=== PATIENT | male | born 1980 | race Caucasian/White ===

== ENCOUNTER → 2023-06-02 10:02 | Outpatient (CLI) | payer OTHER, SELFPAY ==
--- NOTE | ~2023-06-02 | XR_ITS ---
XR lumbar spine 2-3V 06/02/2023 10:34 Indication: Mid low back pain for 8 months Procedure: 3 views lumbar spine Comparison: No prior studies for comparison. Findings: Vertebral body heights are maintained. Normal lumbar lordosis. No fracture or traumatic mal alignment. No evidence for spondylolisthesis. Pedicles intact. Sacral foramen are symmetric. Impression: 1: No significant abnormality of the lumbar spine. Reviewed, dictated and finalized at location L. CENTER OPERATIONS MANAGER Impression: 1: No significant abnormality of the lumbar spine.
== END ==
PROVIDERS: PCP Emergency Medicine; Visit Provider Emergency Medicine
DX: M54.50 Low back pain, unspecified (principal)
CPT/HCPCS: 72100

== ENCOUNTER 2023-06-18 11:41 | Outpatient (CLI) | payer OTHER, SELFPAY ==
[2023-06-18 12:05] LABS: Basophils Absolute Auto 0.1 K/mm3 (0.0-0.1); Basophils Percent Auto 0.5 % (0.2-1.2); Eosinophils Absolute Auto 0.2 K/mm3 (0-0.3); Eosinophils Percent Auto 2.3 % (0-4.4); Hematocrit 37.3 % (42.0-52.0); Hemoglobin 11.9 g/dL (14.0-18.0); Immature Granulocyte Absolute 0.03 K/mm3 (0.00-0.031); Immature Granulocyte Percent A 0.3 % (0-0.5); Lymphocytes Percent Auto 25.1 % (18.3-44.2); Mean Corpuscular HGB Conc 31.9 g/dl (32-36); Mean Corpuscular Hemoglobin 26.6 pg (26-34); Mean Corpuscular Volume 83.3 fl (80-100); Mean Platelet Volume 9.6 fl (7.4-10.4); Monocytes Absolute Auto 0.6 K/mm3 (0.1-0.6); Monocytes Percent Auto 6.5 % (2.6-8.5); Neutrophils Percent Auto 65.3 % (45.5-73.1); Platelet Count Result 225 k/mm3 (150-375); Red Blood Count 4.48 M/mm3 (4.6-6.20); Red Cell Distribution Width 14.4 % (11.5-14.5); White Blood Count 9.2 K/mm3 (4.5-10.0)
[2023-06-18 13:37] LABS: Iron 39 ug/dL (49-181)
[2023-06-18 13:44] LABS: Alanine Aminotransferase 13 U/L (6-50); Albumin Level 3.8 g/dL (3.5-5.1); Alkaline Phosphatase 90 U/L (38-126); Anion Gap 10 mmol/L (8-16); Aspartate Amino Transferase 17 U/L (17-59); Bilirubin,Total 0.3 mg/dL (0.2-1.3); Blood Urea Nitrogen 20 mg/dL (9-20); Calcium 8.9 mg/dL (8.4-10.2); Carbon Dioxide 25 mmol/L (22-30); Chloride 104 mmol/L (98-107); Estimated Glomerular Filt Rate > 60; Glucose 129 mg/dL (65-110); Lactate Dehydrogenase 164 U/L (120-246); Potassium 4.2 mmol/L (3.4-5.0); Sodium 139 mmol/L (137-145)
[2023-06-18 13:52] LABS: Percent Iron Saturation 11 % (20-50)
[2023-06-18 14:47] LABS: Folic Acid 3.8 ng/mL (2.76->20)
[2023-06-21 22:56] LABS: Methylmalonic Acid 236 nmol/L (87-318)
[2023-07-01 09:29] LABS: Soluble Transferrin Receptor 1.16 mg/L (0.76-1.76)
== END 2023-06-18 11:42 | disposition home or self-care (01) ==
PROVIDERS: Nurse Practitioner Family; PCP Emergency Medicine; Visit Provider Internal Medicine Hematology & Oncology
DX: D50.8 Other iron deficiency anemias (principal)
CPT/HCPCS: 36415; 80053; 82607; 82728; 82746; 83540; 83550; 83615; 83921; 84238; 85025

== ENCOUNTER → 2023-06-30 10:51 | Outpatient (CLI) | payer OTHER, SELFPAY ==
--- NOTE | ~2023-06-30 | XR_ITS ---
Clinical Indication: Cough PA and lateral views of the chest: Comparison: None Findings: The lungs are clear, without evidence of focal consolidation or pleural effusion. Cardiome diastinal silhouette is within normal limits. Bones and soft tissues are unremarkable. Impression: Normal chest. Reviewed, dictated and finalized at [facility]. 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
== END ==
PROVIDERS: PCP Emergency Medicine; Visit Provider Emergency Medicine
DX: R05.9 Cough, unspecified (principal)
CPT/HCPCS: 71046

== ENCOUNTER 2024-01-07 15:12 | Outpatient (CLI) | payer OTHER, SELFPAY ==
[2024-01-07 15:42] LABS: Basophils Percent Auto 0.4 % (0.2-1.2); Eosinophils Absolute Auto 0.1 K/mm3 (0-0.3); Eosinophils Percent Auto 1.2 % (0-4.4); Hematocrit 32.9 % (42.0-52.0); Hemoglobin 10.9 g/dL (14.0-18.0); Immature Granulocyte Absolute 0.03 K/mm3 (0.00-0.031); Immature Granulocyte Percent A 0.3 % (0-0.5); Lymphocytes Absolute Auto 2.09 K/mm3 (0.9-3.2); Lymphocytes Percent Auto 20.1 % (18.3-44.2); Mean Corpuscular HGB Conc 33.1 g/dl (32-36); Mean Corpuscular Hemoglobin 29.2 pg (26-34); Mean Corpuscular Volume 88.2 fl (80-100); Monocytes Absolute Auto 0.7 K/mm3 (0.1-0.6); Monocytes Percent Auto 6.9 % (2.6-8.5); Neutrophils Absolute Auto 7.4 K/mm3 (1.3-6.7); Neutrophils Percent Auto 71.1 % (45.5-73.1); Platelet Count Result 159 k/mm3 (150-375); Red Blood Count 3.73 M/mm3 (4.6-6.20); Red Cell Distribution Width 13.2 % (11.5-14.5); White Blood Count 10.4 K/mm3 (4.5-10.0)
[2024-01-07 16:33] LABS: Iron 39 ug/dL (49-181)
[2024-01-07 16:38] LABS: Anion Gap 9 mmol/L (4-12); Blood Urea Nitrogen 20 mg/dL (9-20); Calcium 8.8 mg/dL (8.4-10.2); Carbon Dioxide 29 mmol/L (22-30); Chloride 100 mmol/L (98-107); Estimated Glomerular Filt Rate > 60; Glucose 178 mg/dL (65-110); Potassium 4.7 mmol/L (3.4-5.0); Sodium 138 mmol/L (137-145)
[2024-01-07 16:43] LABS: Percent Iron Saturation 12 % (20-50)
[2024-01-07 17:38] LABS: Folic Acid 10.2 ng/mL (2.76->20)
== END 2024-01-07 15:13 | disposition home or self-care (01) ==
LOC: ANHLAB 15:14
PROVIDERS: Nurse Practitioner Family; Visit Provider Internal Medicine Hematology & Oncology
DX: D50.9 Iron deficiency anemia, unspecified (principal)
CPT/HCPCS: 36415; 80048; 82607; 82728; 82746; 83540; 83550; 85025

== ENCOUNTER 2024-05-31 10:35 | Emergency (ER) | payer OTHER, SELFPAY ==
[2024-05-31 10:37] VITALS: BP 168/82; PULSE 87; RESP 18; TEMP 37; O2SAT 97
--- NOTE | 2024-05-31 11:11 | ED_ITS ---
HPI - Recheck/Abnormal Lab/Rx General Chief Complaint: Recheck/Abnormal Lab/Rx Stated Complaint: PICC Problems Time Seen by Provider: 05/31/24 10:40 History of Present Illness HPI narrative: 44-year-old male presenting to the emergency department from a local facility for evaluation of a PICC line that was clogged. Patient has a PICC line for long-term IV antibiotics for care of his left lower extremity heel ulcer and wound. He has a wound VAC in place. No injuries or complications. Patient states he is otherwise in his normal state of health at the facility. They tried using it this morning and knows that was slightly clogged incentive in for evaluation. Denies any arm pain, no nausea vomiting, headache, vision changes. No chest pain shortness a breath. States he feels at his baseline. Related Data Home Medications ?Medication ?Instructions ?Recorded ?Confirmed ?Last Taken ?Type atorvastatin 20 mg tablet 20 mg PO DAILY 06/29/23 02/25/24 Unknown History calcium carbonate (Oyster Shell 500 mg PO DAILY 06/29/23 02/25/24 Unknown History Calcium 500) dulaglutide 1.5 mg/0.5 mL 1.5 mg subcut WEEKLY 06/29/23 02/25/24 Unknown History subcutaneous pen injector (Trulicity) ergocalciferol (vitamin D2) 1,250 50,000 unit PO WEEKLY 06/29/23 02/25/24 Unknown History mcg (50,000 unit) capsule ferrous sulfate 325 mg (65 mg 325 mg PO DAILY 06/29/23 02/25/24 Unknown History iron) tablet insulin glargine 100 unit/mL (3 20 unit subcut HS 06/29/23 02/25/24 Unknown History mL) subcutaneous pen (Lantus Solostar U-100 Insulin) insulin lispro 100 unit/mL 10 unit subcut TIDWMEAL 06/29/23 02/25/24 Unknown History subcutaneous pen metformin 1,000 mg tablet 500 mg PO BID 06/29/23 02/25/24 Unknown History pantoprazole 40 mg tablet,delayed 40 mg PO DAILY 06/29/23 02/25/24 Unknown History release losartan 75 mg PO DAILY 07/21/23 02/25/24 Unknown History cephalexin 500 mg capsule 500 mg PO TID 02/25/24 02/25/24 Unknown History Allergies Allergy/AdvReac Type Severity Reaction Status Date / Time No Known Allergies Allergy Verified 02/03/24 13:09 Review of Systems Review of Systems: As reviewed above in [facility] Social History Social History Smoking status: Never smoker Second hand tobacco smoke exposure: Yes Living arrangements: with family Spiritual care concerns: No Exam Narrative: GENERAL: Obese but not any acute distress HEAD: [Normocephalic, atraumatic.] EYES: [PERRLA and EOMI.] ENT: Nares clear, no rhinorrhea or epistaxis. Mucous membranes moist. NECK: Supple. CHEST: [Clear to auscultation. No respiratory distress.] HEART: [Regular rate and rhythm]. No murmur heard. [Normal peripheral pulses.] ABDOMEN: [Soft, nondistended], [nontender], [No rigidity or guarding] EXTREMITIES: Left lower extremity wound VAC in place, operating. Right upper extremity single lumen PICC line without any overlying skin changes, appears clean at the insertion site, no swelling or deformity. Full strength and sensation throughout both arms. No swelling in the arms. SKIN: Warm, dry, no rash. NEURO: [No focal deficits]. Alert and oriented [x3.] PSYCH: [Normal mood and affect.] Course Vital Signs Vital signs: Vital Signs Temperature 37.0 C 05/31/24 10:37 Pulse Rate 87 05/31/24 10:37 Respiratory Rate 18 05/31/24 10:37 Blood Pressure 168/82 H 05/31/24 10:37 Pulse Oximetry 97 05/31/24 10:37 Temperature 37.0 C 05/31/24 10:37 Pulse Rate 87 05/31/24 10:37 Respiratory Rate 18 05/31/24 10:37 Blood Pressure 168/82 H 05/31/24 10:37 Pulse Oximetry 97 05/31/24 10:37 MDM - Recheck/Abnormal Lab/Rx MDM Narrative Medical decision making narrative: 44-year-old male presenting for PICC line not functioning at his nursing facility. He has PICC line for long-term antibiotics for his left heel ulcer which is under wound VAC at this time. Patient has no complaints, is afebrile, appears well, no swelling in the extremity. PICC line appears in place without any overlying skin changes, no swelling or skin discoloration. PICC line was flushed in the emergency department easily without any difficulty. PICC line seems to be potentially positional in nature but we ran through multiple flushes without any difficulty with separate providers able to flush it without complication. Patient is stable for discharge back to his facility this time given no complications. Will exchange dressing prior to discharge to his acility. Medical Records Attestation: I reviewed the patient's medical records. Discharge Plan Discharge Clinical Impression: Occluded PICC line Patient Disposition: [facility] Condition: Stable Instructions: Antibiotic Form Additional Instructions: Your PICC line flushes very easily, likely positional in nature which was why they were having difficulty at your facility. No swelling or signs of infection. Follow-up with your regular doctor outpatient or return with any new or worsening concerns. Patient Language: Bulgarian Prescriptions: No Action losartan 75 mg 75 mg PO DAILY cephalexin 500 mg capsule 500 mg PO TID atorvastatin 20 mg tablet 20 mg PO DAILY calcium carbonate [Oyster Shell Calcium 500] 500 mg calcium (1,250 mg) tablet 500 mg PO DAILY pantoprazole 40 mg tablet,delayed release (DR/EC) 40 mg PO DAILY ferrous sulfate 325 mg (65 mg iron) tablet 325 mg PO DAILY metformin 1,000 mg tablet 500 mg PO BID ergocalciferol (vitamin D2) 1,250 mcg (50,000 unit) capsule 50,000 unit PO WEEKLY Rx Instructions: TAKES ON MONDAYS insulin lispro 100 unit/mL insulin pen 10 unit SUBCUT TIDWMEAL insulin glargine [Lantus Solostar U-100 Insulin] 100 unit/mL (3 mL) insulin pen 20 unit SUBCUT HS Trulicity 1.5 mg/0.5 mL pen injector 1.5 mg SUBCUT WEEKLY Rx Instructions: TAKES ON MONDAYS Follow-up/Referrals: Shahram Olmstead MD [Primary Care Provider] - Time of Disposition: 11:15
--- OUTSIDE RECORDS SUMMARY | 2024-06-07 23:59 | XMS_ITS | Clinical Summary ---
Author Organization [facility] Address [address] [place] [address] Care Team Providers Care Fitness Manager Name Role Phone Nguyễn Bingham MD Primary Care Provider [phone] Source Comments [facility] [employer] ([place]),non-owned Affiliates and Associated Physician Practices is amultiple site organization consisting of ambulatory clinics and hospital sitesin [place], [place], [place] and [place]. This disclosure is being madepursuant to the Care Everywhere program and may not contain all information available regarding this patient. Last updated 18.[facility] [employer] ([place]) Allergies No known active allergies Medications * Be aware that medications may not be up to date on this document. Alwaysverify current medications with the patient. Medication Sig Dispensed Refills Start Date End Date Status ferrous sulfate 325 (65 FE) MG tablet Take 1 (one) tablet by mouth daily with breakfast 06/02/2023 Active insulin lispro (HumaLOG;ADMelo g) 100 UNIT/ML pen Inject 10 (ten) Units subcutaneously 3 times daily before meals 06/17/2023 Active acetaminophen (Tylenol) 500 MG tablet Take 1 (one) tablet by mouth every 6 hours as needed Active Alcohol Swabs (Alcohol Prep) PADS 04/16/2023 Active Lantus SoloStar pen Inject 20 (twenty) Units subcutaneously at bedtime 05/22/2023 Active Lancets (ONETOUCH DELICA PLUS 33G EXTRA FINE LANCET) 04/14/2023 Active TRUEplus Pen Sawyer 31G X 5 MM needle 06/19/2023 Active pantoprazole EC (Protonix) 40 MG tablet 07/02/2023 Active tamsulosin (Flomax) 0.4 MG capsule Take 1 (one) capsule by mouth once daily At the same time every day after a meal. 90 capsule 4 07/16/2023 Active gabapentin (Neurontin) 300 MG capsuleIndicati ons:Diabetic peripheral autonomic neuropathy (HCC) Take 1 (one) capsule by mouth 3 times daily 270 capsule 3 10/12/2023 Active Nutritional Supplement LIQD Take 1 packet by mouth 2 times daily for 28 days Pt encouraged to continue with Doyle BID for 28 days post discharge to optimize healing. Doyle can be purchased at [facility] located across from [facility] ([address] [place] [address]) for a reduced cost. 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 05/16/2024 5 Active buPROPion SR 12hr (Wellbutrin-SR) 150 MG tablet Take 1 (one) tablet by mouth 2 times daily Active vitamin D, ergocalciferol, (Drisdol) 1.25 MG (88740 UT) capsule Take 1 (one) capsule by mouth every 7 days Takes on thursday Active metFORMIN (Glucophage) 500 MG tablet Take 1 (one) tablet by mouth 2 times daily with morning and evening meal Active tirzepatide (Mounjaro) 5 MG/0.5ML injection Inject 5 (five) mg subcutaneously every 7 days Active atorvastatin (Lipitor) 40 MG tablet Take 1 (one) tablet by mouth at bedtime 05/26/2024 Active cefTRIAXone 2 g 2,000 mg in 0.9% NaCl IV 0.9 % 50 mL 2,000 (two thousand) mg by Intravenous route every 24 hours for 30 days Last dose 06/25/2024 05/26/2024 5 Active polyethylene glycol 3350 (Miralax) 17 g packet Take 17 (seventeen) g by mouth once daily 05/27/2024 Active metroNIDAZOLE (Flagyl) 500 MG tablet Take 1 (one) tablet by mouth every 8 hours for 30 days Last dose 06/25/2024 05/26/2024 5 Active chlorhexidine (Peridex) 0.12 % solution 15 mL by Mouth/Throat route 2 times daily 05/26/2024 Active artificial tears ophthalmic ointment Instill into both eyes every 8 hours 05/26/2024 Active cyclobenzaprine (Flexeril) 5 MG tablet Take 1 (one) tablet by mouth 3 times daily as needed 05/26/2024 Active atorvastatin (Lipitor) 20 MG tablet Take 1 (one) tablet by mouth at bedtime 07/02/2023 4 Discontinu ed(Dose Adjustment ) Trulicity 1.5 MG/0.5ML injection 07/01/2023 4 Discontinu ed(List Clean-Up) vitamin D, ergocalciferol, (Drisdol) 1.25 MG (99027 UT) capsule 06/17/2023 4 Discontinu ed(List Clean-Up) oyster shell calcium 500 MG tablet 05/20/2023 4 Discontinu ed(List Clean-Up) cephalexin (Keflex) 500 MG capsule 04/27/2023 4 Discontinu ed(Clinica l Decision) losartan (Cozaar) 25 MG tablet Take 1 (one) tablet by mouth once daily 07/21/2023 4 Discontinu ed(Clinica l Decision) calcium carbonate (Os-Wilfredo 500) 1250 (500 Ca) MG tablet Take 1 (one) tablet by mouth once daily 4 Discontinu ed(List Clean-Up) famotidine (Pepcid) 40 MG tablet Take 1 (one) tablet by mouth at bedtime 09/02/2023 4 Discontinu ed(List Clean-Up) furosemide (Lasix) 20 MG tablet Take 1 (one) tablet by mouth once daily 4 Discontinu ed(Clinica l Decision) metFORMIN (Glucophage) 1000 MG tablet Take 0.5 (one-half) tablet by mouth 2 times daily 4 Discontinu ed(List Clean-Up) buPROPion XL 24hr (Wellbutrin-XL) 150 MG tablet Take 1 (one) tablet by mouth once daily 90 tablet 4 10/01/2023 4 Discontinu ed(Dose Adjustment ) Cholecalciferol 1.25 MG (24604 UT) Take 50,000 Units by mouth Two times a week 04/01/2023 4 Discontinu ed(List Clean-Up) amLODIPine (Norvasc) 5 MG tablet Take 1 (one) tablet by mouth once daily 4 Discontinu ed(Clinica l Decision) Active Problems Problem Noted Date Diagnosed Date Controlled type 2 diabetes lincoln koehler, with long-term current use of insulin 05/24/2024 Acute osteomyelitis 05/19/2024 RENALDO (acute kidney injury) 05/19/2024 Ulcer of left foot with other severity 4 Class 3 obesity 03/16/2023 07/16/2023 Overview (07/16/2023): Last Assessment & Plan: Complicates all aspects of care. - Perform STOP BANG > At least intermediate risk > Amb ref pulm vs sleep - Eval for bariatric surgery, GLP-RA would be appropriate Hypertension 03/16/2023 07/16/2023 Overview (07/16/2023): Last Assessment & Plan: Blood pressure modestly elevated. - elect DEBBI/ARB in DM (ACR 44) > start losartan 25 03/17 Last Assessment & Plan: Blood pressure modestly elevated. - elect DEBBI/ARB in DM (ACR 44) > start losartan 25 10 Anemia 03/10/2023 07/16/2023 Overview (07/16/2023): Last Assessment & Plan: BL 10-11. No signs of bleeding -CTM Hgb Diabetic foot ulcer 03/10/2023 07/16/2023 Overview (07/16/2023): Last Assessment & Plan: Wound to planter 1st metatarsal head. S/p debridement with podiatry 03/07, significant depth but negative probe to bone. L foot XR with no OM - continue daily dressing changes - Wound RN consult for final recommendations for HHRN. - WBAT in heel strike shoe per PT - follow up in wound center at discharge - diabetic shoes with custom offloading inserts for prison sheogear - Heel strike shoe is causing the patient difficulty walking, collaborating with PT, nursing, DM re: solutions - collab w/ PT, ordered shoe for right foot to assist with balance / walking > mobility improved Last Assessment & Plan: Wound to planter 1st metatarsal head. S/p debridement with podiatry 03/07, significant depth but negative probe to bone. L foot XR with no OM - continue daily dressing changes - Wound RN consult for final recommendations for HHRN. - WBAT in heel strike shoe per PT - follow up in wound center at discharge - diabetic shoes with custom offloading inserts for prison sheogear - Heel strike shoe is causing the patient difficulty walking, collaborating with PT, nursing, DM re: solutions - collab w/ PT, ordered shoe for right foot to assist with balance / walking > mobility improved T1DM (type 1 diabetes mellitus) 03/10/2023 07/16/2023 Overview (07/16/2023): Presented on this admission in DKA with A1c 13.3, AGMA, ketones and urine and serum. Managed with insulin gtt and transitioned to basal/bolus currently Last Assessment & Plan: Newly diagnosed this admission. Endocrinology following and currently on basal bolus regimen. Insulin Ab, IA-2 Ab, ZNT8 Ab neg, GAD65 0.31 (<0.02) - cont lantus, lispro per endocrinology recs - continue atorvastatin 20 mg daily - patient seen by DM educator - Endocrine final recommendation - Glargine 20 units qHS + Lispro 10 units TID AC + Metformin 500 mg PO BID + Trulicity 0.75 mg SC q weekly Presented on this admission in DKA with A1c 13.3, AGMA, ketones and urine and serum. Managed with insulin gtt and transitioned to basal/bolus currently Last Assessment & Plan: Newly diagnosed this admission. Endocrinology following and currently on basal bolus regimen. Insulin Ab, IA-2 Ab, ZNT8 Ab neg, GAD65 0.31 (<0.02) - cont lantus, lispro per endocrinology recs - continue atorvastatin 20 mg daily - patient seen by DM educator - Endocrine final recommendation - Glargine 20 units qHS + Lispro 10 units TID AC + Metformin 500 mg PO BID + Trulicity 0.75 mg SC q weekly Vitamin D deficiency 03/10/2023 07/16/2023 Overview (07/16/2023): Last Assessment & Plan: Undetectable Vit D Level - continue vit d 50k international units twice weekly x 2 months and calcium supplementation for x3 months. - plan for vit d 2k daily after 50k loading phase - f/u with PCP Last Assessment & Plan: Undetectable Vit D Level - continue vit d 50k international units twice weekly x 2 months and calcium supplementation for x3 months. - plan for vit d 2k daily after 50k loading phase - f/u with PCP Resolved Problems Problem Noted Date Diagnosed Date Resolved Date Sepsis 05/19/2024 05/24/2024 Hyperkalemia 05/19/2024 05/24/2024 Hyperglycemia 05/19/2024 05/24/2024 Encounters Date Type Department Care Team Description 05/20/2024 2:17 PM EMS MANAGER Anesthesia Event [facility] [address] [place] [phone] James Luong MD Gill, Nicholas William, MD 05/20/2024 1:00 PM EMS MANAGER - 05/20/2024 2:31 PM EMS MANAGER Surgery [facility] [address] [place] [id number] Marcos Quinn DPM DEBRIDEMENT FOOT WOUND WITH GRAFT- LEFT 05/15/2024 3:28 PM EMS MANAGER Anesthesia Event [facility] [address] [place] [id number] Ayesha Rodríguez MD Carter, Jeffrey D, MD 05/15/2024 3:00 PM EMS MANAGER - 05/15/2024 4:32 PM EMS MANAGER Surgery [facility] [address] [place] [address] Marcos Quinn DPM IRRIGATION/DEBRIDEM ENT FOOT/ANKLE 05/13/2024 4:58 PM EMS MANAGER - 05/26/2024 1:04 PM EMS MANAGER Hospital Encounter [facility] 3E MED/ONC [address] [place] [phone] Nicanor Richter MD Hambolu, Kehinde, MD Onyechi, Afoma, MD Brown, Tereza Alcantara MD Podiatry Discharge Disposition: Senior Living Facility 05/13/2024 Travel from Last 3 Months Immunizations Name Administration Dates Next Due INFLUENZA VACCINE, QUADR. (F LUZONE; FLULAVAL; FLUARIX; AFLURIA QUADRIVALENT; 6MO+), 0.5 ML (IIV4) 03/11/2023 INFLUENZA VACCINE, TRIV. (FL UZONE; FLULAVAL; FLUARIX; AFLURIA TRIVALENT; 6MO+), 0.5 ML (IIV3) 05/18/2024 Social History Tobacco Use Types Packs/Day Years Used Date Smoking Tobacco: Never Smokeless Tobacco: Never Alcohol Use Standard Drinks/Week Comments Never 0 (1 standard drink = 0.6 oz pur e alcohol) AUDIT-C Answer Date Recorded Q1: How often do you have a drink containing alcohol? Never 05/13/2024 Q2: How many drinks containi ng alcohol do you have on a typical day when you are drinking? Patient does not drink Q3: How often do you have si x or more drinks on one occasion? Never 05/13/2024 Overall Financial Resource Strain (CARDIA) Answe r Date Recorded How hard is it for you to pa y for the very basics like food, housing, medical care, and heating? Not very hard 05/13/2024 PHQ-2 Answer Date Recorded Patient Health Questionnaire-2 Score 1 10/01/2023 [facility] [place] [facility] - Occupational Stress Questionnaire Answer Date Recorded Do you feel stress - tense, restless, nervous, or anxious, or unable to sleep at night because your mind is troubled all the time - these days? Not at all 05/13/2024 Hunger Vital Sign Answer Date Recorded Within the past 12 months, y ou worried that your food would run out before you got the money to buy more. Never true 05/13/20 24 Within the past 12 months, t he food you bought just didn't last and you didn't have money to get more. Never true 05/13/2024 PRAPARE - Transportation Answer Date Re corded In the past 12 months, has l ack of transportation kept you from medical appointments or from getting medications? No 11/2023 In the past 12 months, has l ack of transportation kept you from meetings, work, or from getting things needed for daily living? No 05/13/2024 Housing Stability Vital Sign Answer Melvin e Recorded In the last 12 months, was t here a time when you were not able to pay the mortgage or rent on time? No 05/13/2024 In the past 12 months, how m any times have you moved where you were living? 0 05/13/2024 At any time in the past 12 m [facility], were you homeless or living in a nursing home (including now)? No 05/13/2024 Sex and Gender Information Value Date Recorded Sex Assigned at Not on file Gender Identity Not on file Sexual Orientation Not on file Last Filed Vital Signs Vital Sign Reading Time Taken Comments Blood Pressure 115/73 05/26/2024 11:49 AM EMS MANAGER Pulse 94 05/26/2024 11:49 AM EMS MANAGER Temperature 36.9 ??C (98.4 ??F) 05/26/2024 1 1:49 AM EMS MANAGER Respiratory Rate 23 05/26/2024 4:01 AM EMS MANAGER Oxygen Saturation 95% 05/26/2024 11: 49 AM EMS MANAGER Inhaled Oxygen Concentration 21% 02/2024 11:13 PM EMS MANAGER Weight 183.9 kg (405 lb 6.4 oz) 024 10:13 PM EMS MANAGER Height 200.7 cm (6' 7 ) 05/13/2024 10:1 3 PM EMS MANAGER Body Mass Index 45.67 05/13/2024 10:13 PM EMS MANAGER Plan of Treatment Health Maintenance Due Date Last Done Comments COLOGUARD (AGES 45-75) - COLON CA SCREENING 1979 COLON MONITORING 1979 COLONOSCOPY - COLON CA SCREENING 1979 CT COLONOGRAPHY - COLON CA SCREENING 1979 Colorectal Cancer Screening 1979 FIT - COLON CA SCREENING 1979 FLEX SIG - COLON CA SCREENING 1979 PNEUMOCOCCAL VACCINE (1 of 2 - PCV) 1985 HIV SCREENING 1994 DTAP/TDAP/TD VACCINES (1 - Tdap) 1998 HEPATITIS B VACCINE (1 of 3 - 19+ 3-dose series) 1998 DIABETES - URINE PROTEIN SCREENING 06/08/2023 DIABETES RETINOPATHY SCREENING 07/16/2023 DIABETES-FOOT EXAM WITH MONOFILAMENT 07/16/2023 COVID-19 VACCINE ( - 2023- season) 2024 DIABETES-HGB A1C 11/13/2024 05/15/2024, 09/17/2023 DIABETES-SERUM CREATININE 05/24/20252023, 05/23/2024, 05/22/2024, Additional history exists ZOSTER VACCINE (1 of 2) 2029 HEPATITIS C SCREENING Completed 09/17/2023 DEPRESSION SCREENING Completed 10/01/2023 INFLUENZA VACCINE Completed 05/18/2024, 03/11/2023 HIB VACCINE Aged Out No longer eligi ble based on patient's age to complete this topic HPV VACCINE Aged Out No longer eligi ble based on patient's age to complete this topic MENINGOCOCCAL VACCINE Aged Out No bella wilber eligible based on patient's age to complete this topic Medical Devices Implanted Type Area Power Plant Assistant Device Identifier Shelf Expiration Date Model / Serial / Lot Amino [place] Plus Placental Allograft Membrane Implanted:Qty: 1 on 05/20/2024 by Marcos Quinn DPM at [facility] Left: Foot Integra emo2 [employer] [place] 01/08/2029 [id number] / / [id number] Description:DIV 013 Cytal Wound Matrix 2-Layer Implanted:Qty: 1 on 05/20/2024 by Marcos Quinn DPM at [facility] Left: Foot [employer] 02/05/2025 [id number] / / [id number] Amino [place] Plus Placental Allograft Membrane Implanted:Qty: 1 on 05/20/2024 by Marcos Quinn DPM at [facility] Left: Foot Integra [employer] [place] 01/08/2029 [id number] / / [id number] Amino [place] Plus Placental Allograft Membrane Implanted:Qty: 1 on 05/20/2024 by Marcos Quinn DPM at [facility] Left: Foot Integra [employer] [place] [id number] / / [id number] Description:div 12 Amino [place] Plus Placental Allograft Membrane Implanted:Qty: 1 on 05/20/2024 by Marcos Quinn DPM at [facility] Left: Foot Integra [employer] [place] 11/24/2028 [id number] / / [id number] Amino [place] Plus Placental Allograft Implanted:Qty: 1 on 05/20/2024 by Marcos Quinn DPM at [facility] Left: Foot Integra [employer] [place] 01/08/2029 [id number] / / [id number] Description:div 011 Procedures Procedure Name Priority Date/Time Associated Diagnosis Comments CARDIAC RHYTHM STRIP ORDER 05/27/2024 5:02 PM EMS MANAGER GLUCOSE - POINT OF CARE Routine 05/26/2024 11:48 AM EMS MANAGER GLUCOSE - POINT OF CARE Routine 05/26/2024 8:04 AM EMS MANAGER GLUCOSE - POINT OF CARE Routine 05/25/2024 8:59 PM EMS MANAGER GLUCOSE - POINT OF CARE Routine 05/25/2024 4:36 PM EMS MANAGER GLUCOSE - POINT OF CARE Routine 05/25/2024 11:36 AM EMS MANAGER GLUCOSE - POINT OF CARE Routine 05/25/2024 8:12 AM EMS MANAGER GLUCOSE - POINT OF CARE Routine 05/24/2024 7:43 PM EMS MANAGER GLUCOSE - POINT OF CARE Routine 05/24/2024 5:12 PM EMS MANAGER GLUCOSE - POINT OF CARE Routine 05/24/2024 12:30 PM EMS MANAGER GLUCOSE - POINT OF CARE Routine 05/24/2024 7:40 AM EMS MANAGER RENAL FUNCTION PANEL AM Draw 05/24/2024 5:08 AM EMS MANAGER GLUCOSE - POINT OF CARE Routine 05/23/2024 7:43 PM EMS MANAGER GLUCOSE - POINT OF CARE Routine 05/23/2024 5:17 PM EMS MANAGER GLUCOSE - POINT OF CARE Routine 05/23/2024 11:46 AM EMS MANAGER GLUCOSE - POINT OF CARE Routine 05/23/2024 7:38 AM EMS MANAGER RENAL FUNCTION PANEL AM Draw 05/23/2024 3:33 AM EMS MANAGER GLUCOSE - POINT OF CARE Routine 05/22/2024 9:22 PM EMS MANAGER GLUCOSE - POINT OF CARE Routine 05/22/2024 5:29 PM EMS MANAGER GLUCOSE - POINT OF CARE Routine 05/22/2024 12:15 PM EMS MANAGER GLUCOSE - POINT OF CARE Routine 05/22/2024 7:20 AM EMS MANAGER RENAL FUNCTION PANEL AM Draw 05/22/2024 3:09 AM EMS MANAGER GLUCOSE - POINT OF CARE Routine 05/21/2024 8:39 PM EMS MANAGER GLUCOSE - POINT OF CARE Routine 05/21/2024 5:12 PM EMS MANAGER GLUCOSE - POINT OF CARE Routine 05/21/2024 11:59 AM EMS MANAGER GLUCOSE - POINT OF CARE Routine 05/21/2024 7:47 AM EMS MANAGER RENAL FUNCTION PANEL AM Draw 05/21/2024 3:03 AM EMS MANAGER GLUCOSE - POINT OF CARE Routine 05/20/2024 7:40 PM EMS MANAGER GLUCOSE - POINT OF CARE Routine 05/20/2024 5:59 PM EMS MANAGER GLUCOSE - POINT OF CARE Routine 05/20/2024 4:42 PM EMS MANAGER CULTURE FUNGUS OTHER+FUNGUS SMEAR STAT 05/20/2024 2:58 PM EMS MANAGER Diagnosis unknown CULTURE WOUND+GRAM STAIN STAT 05/20/2024 2:58 PM EMS MANAGER Diagnosis unknown CULTURE ANAEROBE STAT 05/20/2024 2:58 PM EMS MANAGER Diagnosis unknown WI SANTI MUSC/FASCIA 20 SQ CM/< 05/20/2024 1:48 PM EMS MANAGER Diagnosis unknown Special Needs NEEDS PLAN COORDINATOR, TPS, VERSAJET, VASHE IRRIGATION SOLUTION, INTEGRA EP (JAGJIT) NOTIFIED PER OFFICE([facility]) 05/19 TM GLUCOSE - POINT OF CARE Routine 05/20/2024 8:56 AM EMS MANAGER RENAL FUNCTION PANEL AM Draw 05/20/2024 3:09 AM EMS MANAGER GLUCOSE - POINT OF CARE Routine 05/19/2024 10:16 PM EMS MANAGER GLUCOSE - POINT OF CARE Routine 05/19/2024 8:17 PM EMS MANAGER GLUCOSE - POINT OF CARE Routine 05/19/2024 5:11 PM EMS MANAGER GLUCOSE - POINT OF CARE Routine 05/19/2024 12:03 PM EMS MANAGER GLUCOSE - POINT OF CARE Routine 05/19/2024 7:29 AM EMS MANAGER RENAL FUNCTION PANEL AM Draw 05/19/2024 2:16 AM EMS MANAGER GLUCOSE - POINT OF CARE Routine 05/18/2024 7:46 PM EMS MANAGER GLUCOSE - POINT OF CARE Routine 05/18/2024 6:07 PM EMS MANAGER GLUCOSE - POINT OF CARE Routine 05/18/2024 11:58 AM EMS MANAGER GLUCOSE - POINT OF CARE Routine 05/18/2024 9:20 AM EMS MANAGER GLUCOSE - POINT OF CARE Routine 05/18/2024 7:42 AM EMS MANAGER RENAL FUNCTION PANEL AM Draw 05/18/2024 3:38 AM EMS MANAGER CBC W/O DIFFERENTIAL AM Draw 05/18/2024 3:38 AM EMS MANAGER GLUCOSE - POINT OF CARE Routine 05/17/2024 11:12 PM EMS MANAGER GLUCOSE - POINT OF CARE Routine 05/17/2024 10:29 PM EMS MANAGER GLUCOSE - POINT OF CARE Routine 05/17/2024 6:02 PM EMS MANAGER PROTEIN CREATININE RATIO URINE RANDOM PNL Routine 05/17/2024 1:14 PM EMS MANAGER VAS ARTERIAL ANKLE ARM INDEX Routine 05/17/2024 12:04 PM EMS MANAGER Ulcer of left foot with other severity (HCC) GLUCOSE - POINT OF CARE Routine 05/17/2024 11:57 AM EMS MANAGER CBC W/O DIFFERENTIAL STAT 05/17/2024 9:46 AM EMS MANAGER GLUCOSE - POINT OF CARE Routine 05/17/2024 7:57 AM EMS MANAGER COMPLEMENT C4 Routine 05/17/2024 5:00 AM EMS MANAGER COMPLEMENT C3 Routine 05/17/2024 5:00 AM EMS MANAGER BASIC METABOLIC PANEL (CALCIUM TOTAL) AM Draw 05/17/2024 5:00 AM EMS MANAGER GLUCOSE - POINT OF CARE Routine 05/16/2024 9:36 PM EMS MANAGER GLUCOSE - POINT OF CARE Routine 05/16/2024 6:18 PM EMS MANAGER MRI FOOT LEFT WO CONTRAST Routine 05/16/2024 5:20 PM EMS MANAGER Ulcer of left foot with other severity (HCC) URINALYSIS REFLEX TO MICROSCOPIC NO CULTURE Routine 05/16/2024 12:57 PM EMS MANAGER GLUCOSE - POINT OF CARE Routine 05/16/2024 11:07 AM EMS MANAGER VANCOMYCIN LEVEL PEAK STAT 05/16/2024 9:04 AM EMS MANAGER GLUCOSE - POINT OF CARE Routine 05/16/2024 7:53 AM EMS MANAGER DIFFERENTIAL MANUAL AM Draw 05/16/2024 3 :09 AM EMS MANAGER RENAL FUNCTION PANEL AM Draw 05/16/2024 3:09 AM EMS MANAGER CBC W AUTO DIFFERENTIAL AM Draw 05/16/2024 3:09 AM EMS MANAGER GLUCOSE - POINT OF CARE Routine 05/15/2024 8:43 PM EMS MANAGER GLUCOSE - POINT OF CARE Routine 05/15/2024 6:01 PM EMS MANAGER XR FOOT LEFT 2VW STAT 05/15/2024 5:31 PM EMS MANAGER Left foot infection GLUCOSE - POINT OF CARE Routine 05/15/2024 5:06 PM EMS MANAGER CULTURE FUNGUS OTHER+FUNGUS SMEAR STAT 05/15/2024 4:34 PM EMS MANAGER Left foot infection CULTURE TISSUE+GRAM STAIN STAT 05/15/2024 4:34 PM EMS MANAGER Left foot infection CULTURE ANAEROBE STAT 05/15/2024 4:34 PM EMS MANAGER Left foot infection CULTURE TISSUE+GRAM STAIN STAT 05/15/2024 4:33 PM EMS MANAGER Left foot infection CULTURE AFB+SMEAR STAT 05/15/2024 4:3 3 PM EMS MANAGER Left foot infection CULTURE ANAEROBE STAT 05/15/2024 4:33 PM EMS MANAGER Left foot infection PATHOLOGY TISSUE EXAM (STL) Routine 05/15/2024 4:29 PM EMS MANAGER Left foot infection WI SANTI SUBQ TISSUE 20 SQ CM/< 05/15/2024 3:18 PM EMS MANAGER GLUCOSE - POINT OF CARE Routine 05/15/2024 1:31 PM EMS MANAGER GLUCOSE - POINT OF CARE Routine 05/15/2024 7:50 AM EMS MANAGER DIFFERENTIAL MANUAL AM Draw 05/15/2024 12:13 AM EMS MANAGER HEMOGLOBIN A1C Routine 05/15/2024 12:13 AM EMS MANAGER RENAL FUNCTION PANEL AM Draw 05/15/2024 12:13 AM EMS MANAGER CBC W AUTO DIFFERENTIAL AM Draw 05/15/2024 12:13 AM EMS MANAGER VANCOMYCIN LEVEL TROUGH STAT 05/15/2024 12:13 AM EMS MANAGER GLUCOSE - POINT OF CARE Routine 05/14/2024 10:02 PM EMS MANAGER PROTEIN CREATININE RATIO URINE RANDOM PNL Routine 05/14/2024 5:31 PM EMS MANAGER SODIUM URINE RANDOM Routine 05/14/2024 5 :31 PM EMS MANAGER VANCOMYCIN LEVEL PEAK STAT 05/14/2024 5:06 PM EMS MANAGER GLUCOSE - POINT OF CARE Routine 05/14/2024 4:50 PM EMS MANAGER US RETROPERITONEAL COMPLETE Routine 05/14/2024 2:17 PM EMS MANAGER RENALDO (acute kidney injury) (HCC) EOSINOPHIL URINE SMEAR Routine 1:19 PM EMS MANAGER CULTURE WOUND+GRAM STAIN Routine 05/14/2024 12:22 PM EMS MANAGER GLUCOSE - POINT OF CARE Routine 05/14/2024 11:33 AM EMS MANAGER CULTURE BLOOD STAT 05/14/2024 9:25 AM EMS MANAGER FOLATE STAT 05/14/2024 9:16 AM EMS MANAGER VITAMIN B12 STAT 05/14/2024 9:16 AM EMS MANAGER LACTIC ACID BLOOD STAT 05/14/2024 9:1 6 AM EMS MANAGER B-TYPE NATRIURETIC PEPTIDE STAT 05/14/2024 9:16 AM EMS MANAGER CULTURE BLOOD STAT 05/14/2024 9:16 AM EMS MANAGER GLUCOSE - POINT OF CARE Routine 05/14/2024 8:16 AM EMS MANAGER VANCOMYCIN LEVEL RANDOM STAT 05/14/2024 4:03 AM EMS MANAGER CK BLOOD STAT 05/14/2024 4:03 AM EMS MANAGER RETIC COUNT STAT 05/14/2024 4:03 AM EMS MANAGER FERRITIN STAT 05/14/2024 4:03 AM EMS MANAGER IRON + TRANSFERRIN PANEL STAT 05/14/2024 4:03 AM EMS MANAGER DIFFERENTIAL MANUAL AM Draw 05/14/2024 4 :03 AM EMS MANAGER RENAL FUNCTION PANEL AM Draw 05/14/2024 4:03 AM EMS MANAGER CBC W AUTO DIFFERENTIAL AM Draw 05/14/2024 4:03 AM EMS MANAGER GLUCOSE - POINT OF CARE Routine 05/13/2024 11:10 PM EMS MANAGER CBC W AUTO DIFFERENTIAL Routine 05/13/2024 6:30 PM EMS MANAGER BASIC METABOLIC PANEL (CALCIUM TOTAL) STAT 05/13/2024 6:30 PM EMS MANAGER HEPATITIS C ANTIBODY Routine 09/17/2023 12:47 PM CDT Polyneuropathy associated with underlying disease (HCC) from Last 3 Months or Most Recently Relevant to Health Maintenance Results * CARDIAC RHYTHM STRIP ORDER (05/27/2024 5:02 PM EMS MANAGER) Narrative 05/27/2024 5:02 PM EMS MANAGER Ordered by an unspecified provider. Scanned Document CARDIAC SERVICES ORD ERABLES * (ABNORMAL) GLUCOSE - POINT OF CARE (05/26/2024 11:48 AM EMS MANAGER) Only the most recent of55 resultswithin the time period is included. Glucose WB/POC 127(H) 70 - 99 mg/dL 06/06/2024 7:01 AM EMS MANAGER [facility] Specimen Type Cap Fingerstick 2023 7:01 AM EMS MANAGER [facility] Blood BLOOD SPECIMEN / Unknown 05/26/2024 11:48 AM EMS MANAGER 06/06/2024 7:01 AM EMS MANAGER Tereza Mcpherson MD LAB - POINT OF CARE ORDERABLES [facility] [address] [place] [address] * (ABNORMAL) RENAL FUNCTION PANEL (05/24/2024 5:08 AM EMS MANAGER) Only the most recent of10 resultswithin the time period is included. Glucose 123(H) 70 - 99 mg/dL 05/24/2024 5:56 AM EMS MANAGER [facility] Sodium 140 136 - 145 mmol/L 05/24/2024 5:56 AM EMS MANAGER [facility] Potassium 4.3 3.5 - 5.1 mmol/L 05/24/2024 5:56 AM EMS MANAGER [facility] Chloride 111(H) 98 - 107 mmol/L 05/24/2024 5:56 AM [facility] CO2 23 22 - 29 mmol/L 05/24/2024 5:56 AM [facility] Calcium 8.9 8.4 - 10.4 mg/dL 05/24/2024 5:56 AM [facility] Anion Gap 6 6 - 16 mmol/L 05/24/2024 5:56 AM [facility] BUN 26(H) 5.3 - 18.7 mg/dL 05/24/2024 5:56 AM [facility] Creatinine 1.33(H) 0.72 - 1.25 mg/dL 05/24/2024 5:56 AM [facility] Albumin 2.0(L) 3.4 - 5.0 gm/dL 05/24/2024 5:56 AM [facility] Phosphorus 4.2 2.5 - 4.5 mg/dL 05/24/2024 5:56 AM [facility] eGFR by CKD-EPI 68(L) >=90 mL/min/1.7 3 m2 05/24/2024 5:56 AM [facility] Blood BLOOD SPECIMEN / Unknown Lab Venipuncture / Unknown 05/24/2024 5:08 AM EMS MANAGER 05/24/2024 5:22 AM EMS MANAGER Manpreet Stuart MD LAB - CHEMISTRY MELIDA COLLINS [facility] Organization Address City/State/[facility] Co de Phone Number [facility] [address] [place], [place] [id number] * CULTURE WOUND+GRAM STAIN (05/20/2024 2:58 PM EMS MANAGER) Only the most recent of2 resultswithin the time period is included. Culture Rare normal skin jero JEFF 05/22/2024 9:21 PM [facility]CRO[facility] Gram Stain Moderate Polymorphonuclear cells 05/22/2024 9:21 PM [facility] MICROBIOLOG[facility] Gram Stain No organisms seen 024 9:21 PM [facility] MICROBIOLOGY Microbiology ENTIRE FOOT / Unknown 05/20/2024 2:58 PM EMS MANAGER 05/20/2024 3:58 PM EMS MANAGER Comment:Pre-op diagnosis: Diagnosis unknown [R69] Narrative [facility]CROBI[facility]Y - 05/22/2024 9:21 PM EMS MANAGER Surgical Description: Left Foot Wound Culture Marcos Quinn [facility] - MICROBIOLOGY O RDERABLES Performing Organization Address [facility] de Phone Number [facility]CROBI[facility] [address] [place] [address], [facility] [phone] * CULTURE ANAEROBE (05/20/2024 2:58 PM EMS MANAGER) Only the most recent of3 resultswithin the time period is included. Culture No anaerobic organisms isolated JEFF 05/25/2024 3:37 PM EMS MANAGER [facility] Microbiology ENTIRE FOOT / Unknown 05/20/2024 2:58 PM EMS MANAGER 05/20/2024 3:58 PM EMS MANAGER Comment:Pre-op diagnosis: Diagnosis unknown [R69] Narrative [facility]CRO[facility] - 05/25/2024 3:37 PM EMS MANAGER Surgical Description: Left Foot Wound Culture Marcos Quinn [facility] - MICROBIOLOGY O RDLONNY Performing Organization Address [facility] de Phone Number [facility] [address] [place] [address], [facility] [phone] * (ABNORMAL) CBC W/O DIFFERENTIAL (05/18/2024 3:38 AM EMS MANAGER) Only the most recent of2 resultswithin the time period is included. WBC 14.5(H) 4.0 - 10.7 x10E9/L 05/18/2024 4:40 AM EMS MANAGER [facility] RBC Count 2.76(L) 4.30 - 5.80 x10E12/L 05/18/2024 4:40 AM EMS MANAGER [facility] Hemoglobin 7.7(L) 13.3 - 17.5 g/dL 05/18/2024 4:40 AM EMS MANAGER [facility] Hematocrit 24.7(L) 38.7 - 51.1 % 05/18/2024 4:40 AM EMS MANAGER [facility] MCV 89.5 80.0 - 98.0 fL 05/18/2024 4:40 AM EMS MANAGER [facility] MCH 27.9 26.7 - 33.6 pg 05/18/2024 4:40 AM [facility] MCHC 31.2(L) 31.7 - 36.3 g/dL 05/18/2024 4:40 AM [facility] RDW-CV 13.8 11.3 - 14.8 % 05/18/2024 4:40 AM [facility] Platelet Count 330 150 - 420 x10E9/L 05/18/2024 4:40 AM [facility] MPV 8.6 7.8 - 11.4 fL 05/18/2024 4:40 AM [facility] Blood BLOOD SPECIMEN / Unknown Lab Venipuncture / Unknown 05/18/2024 3:38 AM EMS MANAGER 05/18/2024 4:20 AM EMS MANAGER Manpreet Stuart MD LAB - HEMATOLOGY ORD ERABLES Performing Organization Address City/[facility] Co de Phone Number [facility] [address] [place] [phone] * (ABNORMAL) PROTEIN CREATININE RATIO URINE RANDOM PNL (05/17/2024 1:14 PM EMS MANAGER) Only the most recent of2 resultswithin the time period is included. Protein Urine 54.6(H) <11.9 mg/dL 05/17/2024 1:53 PM EMS MANAGER [facility] Creatinine Urine 77.41 mg/dL 05/17/2024 1:53 PM [facility] Protein/Creatin ine Ratio Urine 0.71 05/17/2024 1:53 PM [facility] Urine URINE SPECIMEN OBTAINED BY CLEAN CATCH PROCEDURE / Unknown Collection / Unknown 05/17/2024 1:14 PM EMS MANAGER 05/17/2024 1:31 PM EMS MANAGER Katerina Weaver DO LAB - URINE CHEMISTR Y ORDERABLES [facility] [address] [place] [id number] * VAS Arterial Ankle Arm Index (05/17/2024 12:04 PM EMS MANAGER) Anatomical Region Laterality Modality Ankle / Foot, Upper Extremity Ul trasound 05/17/2024 11:1 9 AM EMS MANAGER Narrative Procedure Note Gerry Villalobos MD - 05/17/2024 [place] [address] Lower Extremity Arterial Doppler Report Pat.Name: RENE HYATT Pat.ID: [id number] .Date: 05/17/2024 Exam Time: 11:19:00 AM Study Type:MOSES/PVR Age: 11 1980,43Y Sex: MALE Sonogrphr: Marina Calderón RVT, [facility] Pat. Stat.:Inpatient Reason for Study: Left foot wound for months, little improvement History / Clinical: Hypertension, Diabetes, Morbid obesity Procedures: Ankle Arm Index Visit ID: [id number] ++++++++++++++++++++++++++++++++++++ SUMMARY: ++++++++++++++++++++++++++++++++++++ No evidence for significant arterial insufficiency of either the right or left lower extremity at rest. Bilateral digital tracings are pulsatile. Gerry Garcia MD, RPVI, Vascular & Interventional radiologist, reviewed the images and reported the study. ++++++++++++++++++++++++++++++++++++ FINDINGS: ++++++++++++++++++++++++++++++++++++ Procedure: The arterial vasculature of the lower extremities was evaluated by analysis of Doppler pressures and waveforms obtained in the legs at rest. Study Quality: This study is of adequate technical quality. Doppler Waveforms: Right Left Common Fem Triphasic Triphasic Popliteal Triphasic Triphasic Posterior Tibial Triphasic Triphasic Dorsalis Pedis Triphasic Triphasic ++++++++++++++++++++++++++++++++++++ MEASUREMENTS: ++++++++++++++++++++++++++++++++++++ PRESSURES Right 1st Digit GreatToe P 162 mmHg Right MOSES (DP) MOSES (DP) 1.2 Right MOSES (PT) MOSES (PT) 1.2 Right Ankle DP AnkleDP P 187 mmHg Right Ankle PT AnklePT P 183 mmHg Right Brachial Brach P 145 mmHg Right DBI DBI 1 Left 1st Digit GreatToe P 115 mmHg Left MOSES (DP) MOSES (DP) 1 Left MOSES (PT) MOSES (PT) 1 Left Ankle DP AnkleDP P 164 mmHg Left Ankle PT AnklePT P 159 mmHg Left Brachial Brach P 158 mmHg Left DBI DBI 0.73 Signed 05/17/2024 05:01 PM Gerry Ace MD Zana Tolentino MD VASCULAR LAB ORDERAB LES * COMPLEMENT C4 (05/17/2024 5:00 AM EMS MANAGER) Pathologist [facility] C4 19 15 - 57 mg/dL 05/17/2024 10:52 AM EMS MANAGER [facility] Blood BLOOD SPECIMEN / Unknown Lab Venipuncture / Unknown 05/17/2024 5:00 AM EMS MANAGER 05/17/2024 5:57 AM EMS MANAGER Katerina Weaver DO LAB - SEROLOGY ORDER MARA Performing Organization Address [facility]/State/ZIP Co de Phone Number [address] [phone], [facility] [phone] * (ABNORMAL) BASIC METABOLIC PANEL (CALCIUM TOTAL) (05/17/2024 5:00 AM EMS MANAGER) Only the most recent of2 resultswithin the time period is included. Glucose 207(H) 70 - 99 mg/dL 05/17/2024 6:26 AM EMS MANAGER [facility] Sodium 135(L) 136 - 145 mmol/L 05/17/2024 6:26 AM [facility] Potassium 4.2 3.5 - 5.1 mmol/L 05/17/2024 6:26 AM [facility] Chloride 107 98 - 107 mmol/L 05/17/2024 6:26 AM [facility] CO2 20(L) 22 - 29 mmol/L 05/17/2024 6:26 AM [facility] Calcium 7.9(L) 8.4 - 10.4 mg/dL 05/17/2024 6:26 AM [facility] Anion Gap 8 6 - 16 mmol/L 05/17/2024 6:26 AM [facility] BUN 37(H) 5.3 - 18.7 mg/dL 05/17/2024 6:26 AM [facility] Creatinine 1.83(H) 0.72 - 1.25 mg/dL 05/17/2024 6:26 AM [facility] eGFR by CKD-EPI 46(L) >=90 mL/min/1.7 3 m2 05/17/2024 6:26 AM [facility] Blood BLOOD SPECIMEN / Unknown Lab Venipuncture / Unknown 05/17/2024 5:00 AM EMS MANAGER 05/17/2024 5:57 AM EMS MANAGER [facility] - CHEMISTRY [employer] [facility] [address] [place] [address] * COMPLEMENT C3 (05/17/2024 5:00 AM EMS MANAGER) Pathologist [facility] C3 100 82 - 193 mg/dL 05/17/2024 10:52 AM EMS MANAGER [facility] Blood BLOOD SPECIMEN / Unknown Lab Venipuncture / Unknown 05/17/2024 5:00 AM EMS MANAGER 05/17/2024 5:57 AM EMS MANAGER RahEx[facility] LAB - CHEMISTRY [employer] [address] [id number] [phone] * MRI Foot Left Wo Contrast (05/16/2024 5:20 PM EMS MANAGER) Anatomical Region Laterality Modality Ankle / Foot Magnetic Resonan ce 05/17/2024 8:48 AM EMS MANAGER Impressions 05/17/2024 9:04 AM EMS MANAGER IMPRESSION: 1. ??Large soft tissue wound//debridement surrounding the calcaneus and extending to bone. 2. ??There is mild osteomyelitis in the lateral calcaneal tubercle. ??However most of the calcaneal marrow changes are likely reactive. 3. ??No visible abscess. 4. ??Detached peroneal tendons. 5. ??Other findings as described > Interpreting Provider: Gila Licea MD on 05/17/2024 9:04 AM Narrative 05/17/2024 9:04 AM EMS MANAGER PROCEDURE: ??MRI FOOT LEFT WO CONTRAST DATE/TIME OF EXAM: ??05/16/2024 5:20 PM CLINICAL INFORMATION: None relevant/not provided if blank. 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 FINDINGS: There are extensive soft tissue wounds or debridement in the posterior plantar foot. ??There is loss of skin and underlying facets almost entirely around the weightbearing portion of the calcaneus also cyst extending laterally around the calcaneus and slightly medially. ??Tissue loss extends to the surface of the bone and several locations. ??Edema is greatest laterally adjacent to the calcaneal tubercle but is predominantly visible on T2 and only slightly on T1. ??In the weightbearing posterior calcaneus there is additional edema also predominantly visible on T2 and only slightly visible on T1. ??Subtle marrow edema in the cuboid is only visible on T2 and should be reactive. ??There are no fluid collections to indicate an abscess although this evaluation is somewhat limited without contrast.. The Achilles tendon and insertion are unremarkable. ??The talocalcaneal articulations are unremarkable. ??Small effusion in the tibiotalar joint. The major medial tendon groups remain intact but with tenosynovitis. ??Both the peroneus longus and brevis tendons are detached from their insertions and terminate in the soft tissues near the wound. ??There is some edema within the posterior aspect of the plantar fascia. There is extensive, severe myositis throughout the plantar muscles with accompanying subcutaneous edema both in the plantar and dorsal soft tissues. Procedure Note Gila Licea MD - 05/17/2024 PROCEDURE: MRI FOOT LEFT WO CONTRAST DATE/TIME OF EXAM: 05/16/2024 5:20 PM CLINICAL INFORMATION: None relevant/not provided if blank. Indication: L97.528: Non-pressure chronic ulcer of other part of leftfoot with other specified severity (HCC) Additional History: COMPARISON: Plain films from 05/15/2024 TECHNIQUE: MRI of the left foot was performed without contrast. FINDINGS: There are extensive soft tissue wounds or debridement in the posterior plantar foot. There is loss of skin and underlying facets almostentirely around the weightbearing portion of the calcaneus also cyst extending laterally around the calcaneus and slightly medially. Tissue lossextends to the surface of the bone and several locations. Edema is greatest laterally adjacent to the calcaneal tubercle but is predominantlyvisible on T2 and only slightly on T1. In the weightbearing posterior calcaneus there is additional edema also predominantly visible on T2 and only slightly visible on T1. Subtle marrow edema in the cuboid is onlyvisible on T2 and should be reactive. There are no fluid collections toindicate an abscess although this evaluation is somewhat limited withoutcontrast.. The Achilles tendon and insertion are unremarkable. The talocalcaneal articulations are unremarkable. Small effusion in the tibiotalar joint. The major medial tendon groups remain intact but with tenosynovitis.Both the peroneus longus and brevis tendons are detached from theirinsertions and terminate in the soft tissues near the wound. There is some edema within the posterior aspect of the plantar fascia. There is extensive, severe myositis throughout the plantar muscles with accompanying subcutaneous edema both in the plantar and dorsal soft tissues. IMPRESSION: 1. Large soft tissue wound//debridement surrounding the calcaneus and extending to bone. 2. There is mild osteomyelitis in the lateral calcaneal tubercle.However most of the calcaneal marrow changes are likely reactive. 3. No visible abscess. 4. Detached peroneal tendons. 5. Other findings as described > Interpreting Provider: Gila Licea MD on 05/17/2024 9:04 AM Zana Tolentino MD MR ORDERABLES * (ABNORMAL) URINALYSIS REFLEX TO MICROSCOPIC NO CULTURE (05/16/2024 12:57 PM EMS MANAGER) Color UA Yellow Yellow, Straw 05/16/2024 1:17 PM EMS MANAGER [facility] Clarity UA Turbid(A) Clear 05/16/2024 1:17 PM EMS MANAGER [facility] Glucose UA Normal Normal 05/16/2024 1:17 PM EMS MANAGER [facility] Bilirubin UA Negative Negative 05/16/2024 1:17 PM EMS MANAGER [facility] Ketone UA Trace(A) Negative 05/16/2024 1:17 PM EMS MANAGER [facility] Specific Rye UA 1.016 1.005 - 1.030 05/16/2024 1:17 PM EMS MANAGER [facility] Blood UA 2+(A) Negative 05/16/2024 1:17 PM EMS MANAGER [facility] pH UA 5.5 5.0 - 9.0 pH 05/16/2024 1:17 PM EMS MANAGER [facility] Protein UA 1+(A) Negative 05/16/2024 1:17 PM EMS MANAGER [facility] Urobilinogen UA Normal Normal mg/dL 05/16/2024 1:17 PM EMS MANAGER [facility] Nitrite UA Negative Negative 05/16/2024 1:17 PM EMS MANAGER [facility] Leukocyte UA 75 MIKKI/uL(A) Negative 05/16/2024 1:17 PM EMS MANAGER [facility] RBC UA None Seen 0 - 5 # /hpf 05/16/2024 1:17 PM EMS MANAGER [facility] WBC UA 6-10(A) 0 - 5 # /hpf 05/16/2024 1:17 PM EMS MANAGER [facility] Bacteria UA None Seen None Seen 05/16/2024 1:17 PM EMS MANAGER [facility] Squamous Epithelial Cells 0-2 0 - 5 /hpf 05/16/2024 1:17 PM EMS MANAGER [facility] Budding Yeast Few(A) None seen /hpf 05/16/2024 1:17 PM EMS MANAGER [facility] Urine URINE SPECIMEN OBTAINED BY CLEAN CATCH PROCEDURE / Unknown Collection / Unknown 05/16/2024 12:57 PM EMS MANAGER 05/16/2024 1:04 PM EMS MANAGER Narrative [facility] - 05/16/2024 1:17 PM EMS MANAGER Katerina Weaver DO LAB - URINALYSIS ORD ERABLES [facility] [address] [place] [address] * (ABNORMAL) VANCOMYCIN LEVEL PEAK (05/16/2024 9:04 AM EMS MANAGER) Only the most recent of2 resultswithin the time period is included. Vancomycin Peak 40.3(H) 25.0 - 40.0 ug/mL 05/16/2024 9:26 AM [facility] Blood BLOOD SPECIMEN / Unknown Lab Venipuncture / Unknown 05/16/2024 9:04 AM EMS MANAGER 05/16/2024 9:06 AM EMS MANAGER Hattie Liao MD LAB - CHEMISTRY MELIDA COLLINS Performing Organization Address [facility] Co de Phone Number [facility] [address] [place] [phone] * (ABNORMAL) DIFFERENTIAL MANUAL (05/16/2024 3:09 AM EMS MANAGER) Only the most recent of3 resultswithin the time period is included. Neutrophil % 88(H) 41 - 74 % 05/16/2024 4:51 AM [facility] Lymphocyte % 7(L) 17 - 47 % 05/16/2024 4:51 AM [facility] Monocyte % 4 3 - 11 % 05/16/2024 4:51 AM [facility] Myelocyte % 1(H) 0% % 05/16/2024 4:51 AM [facility] Neutrophil Absolute 19.10(H) 1.60 - 7.50 x10E9/L 05/16/2024 4:51 AM [facility] Lymphocyte Absolute 1.52 1.00 - 4.40 x10E9/L 05/16/2024 4:51 AM [facility] Monocyte Absolute 0.87 0.15 - 1.00 x10E9/L 05/16/2024 4:51 AM [facility] RBC Morphology NORMAL 05/16/2024 4:51 AM [facility] Platelet Morphology NORMAL 05/16/2024 4:51 AM [facility] Blood BLOOD SPECIMEN / Unknown Lab Venipuncture / Unknown 05/16/2024 3:09 AM EMS MANAGER 05/16/2024 4:09 AM EMS MANAGER Nicanor Richter MD LAB - HEMATOLOGY ORDERABLES [facility] [address] [place] [address] * (ABNORMAL) CBC W AUTO DIFFERENTIAL (05/16/2024 3:09 AM EMS MANAGER) Only the most recent of4 resultswithin the time period is included. WBC 21.7(H) 4.0 - 10.7 x10E9/L 05/16/2024 4:51 AM [facility] RBC Count 2.62(L) 4.30 - 5.80 x10E12/L 05/16/2024 4:51 AM [facility] Hemoglobin 7.3(L) 13.3 - 17.5 g/dL 05/16/2024 4:51 AM [facility] Hematocrit 23.6(L) 38.7 - 51.1 % 05/16/2024 4:51 AM [facility] MCV 90.1 80.0 - 98.0 fL 05/16/2024 4:51 AM [facility] MCH 27.9 26.7 - 33.6 pg 05/16/2024 4:51 AM [facility] MCHC 30.9(L) 31.7 - 36.3 g/dL 05/16/2024 4:51 AM [facility] RDW-CV 13.9 11.3 - 14.8 % 05/16/2024 4:51 AM [facility] Platelet Count 300 150 - 420 x10E9/L 05/16/2024 4:51 AM [facility] MPV 9.3 7.8 - 11.4 fL 05/16/2024 4:51 AM [facility] Blood BLOOD SPECIMEN / Unknown Lab Venipuncture / Unknown 05/16/2024 3:09 AM EMS MANAGER 05/16/2024 4:09 AM EMS MANAGER Nicanor Richter MD LAB - HEMATOLOGY ORDERABLES [facility] [address] [place] [address] * XR Foot Left 2Vw (05/15/2024 5:31 PM EMS MANAGER) Anatomical Region Laterality Modality Ankle / Foot Radiographic Haylee ging 05/16/2024 7:16 AM EMS MANAGER Impressions 05/16/2024 9:15 AM EMS MANAGER IMPRESSION: Ulceration versus surgical debridement of the posterior plantar soft tissue of the foot and calcaneus. Report drafted by Ketan Meier MD (assistant to the president) Gila Garcia MD have personally reviewed and interpreted this examination/study. > Interpreting Provider: Gila Licea MD on 05/16/2024 9:15 AM Narrative 05/16/2024 9:15 AM EMS MANAGER EXAMINATION: XR FOOT LEFT 2VW HISTORY: L08.9: Local infection of the skin and subcutaneous tissue, unspecified COMPARISON: None. FINDINGS: There is large soft tissue defect at the posterior and medial plantar surface of the foot, with a area of lucency in the region of inferior aspect of the calcaneal tuberosity. This may reflect recent postoperative change of surgical debridement. ??There is nonfocal edema elsewhere in the foot but no abnormal gas collections. ??No bone destruction or fracture. The joint spaces are preserved. ?? Procedure Note Gila Licea MD - 05/16/2024 EXAMINATION: XR FOOT LEFT 2VW HISTORY: L08.9: Local infection of the skin and subcutaneous tissue, unspecified COMPARISON: None. FINDINGS: There is large soft tissue defect at the posterior and medial plantar surface of the foot, with a area of lucency in the region of inferior aspect of the calcaneal tuberosity. This may reflect recentpostoperative change of surgical debridement. There is nonfocal edema elsewhere inthe foot but no abnormal gas collections. No bone destruction or fracture.The joint spaces are preserved. IMPRESSION: Ulceration versus surgical debridement of the posterior plantar softtissue of the foot and calcaneus. Report drafted by Ketan Meier MD (assistant to the president) Gila Garcia MD have personally reviewed and interpreted this examination/study. > Interpreting Provider: Gila Licea MD on 05/16/2024 9:15 AM Marcos Quinn DPM DIAGNOSTIC IMAGING O EMILY * (ABNORMAL) CULTURE TISSUE+GRAM STAIN (05/15/2024 4:34 PM EMS MANAGER) Only the most recent of2 resultswithin the time period is included. Culture Rare Streptococcus agalactiae (Group B)(AA) 05/18/2024 11:57 PM EMS MANAGER [facility] Gram Stain Rare Polymorphonuclear cells 05/18/2024 11:57 PM EMS MANAGER [facility] Gram Stain No organisms seen 024 11:57 PM EMS MANAGER [facility] Microbiology ENTIRE FOOT / Unknown 05/15/2024 4:34 PM EMS MANAGER 05/15/2024 8:29 PM EMS MANAGER Narrative [facility] - 05/18/2024 11:57 PM EMS MANAGER Susceptibility testing of penicillin, other beta-lactam antibiotics, and vancomycin is not necessary for beta-hemolytic streptococci groups A,B,C and G because resistant strains have not been recognized. Surgical Description: Left Foot Marcos Quinn DPM LAB - MICROBIOLOGY O EMILY [facility] [address] [place], [place] [address], [facility] [phone] * PATHOLOGY TISSUE EXAM (STL) (05/15/2024 4:29 PM EMS MANAGER) Case Report Surgical Pathology Report ? Case: [id number] ? Authorizing Provider: ??Marcos Qunin DPM ? Collected: ? 05/15/2024 04:29 PM ? Ordering Location: ? [facility] ?Received: ?05/16/2024 08:13 AM ? Pathologist: ? Kaci Mayo MD ? Specimen: ?Bone Debridement, Calcaneus Bone Left Foot ? 05/18/2024 10:44 AM [facility] Final Diagnosis Bone, left calcaneus, debridement - Focal acute osteomyelitis 05/18/2024 10:44 AM [facility] Clinical History The patient is a 43-year-old man with left foot infection. Operative procedure: irrigation/debridemen t of foot/ankle. 05/18/2024 10:44 AM [facility] Gross Description The requisition and specimen(s) are identified with the patient's name Rene Hyatt . Received in formalin, specimen A , calcaneus bone left consists of 2 unoriented borges-white to borges-brown firm tissue fragments, consistent with bone, measuring 1.5 x 1.3 x 0.4 cm and 1.0 x 0.8 x 0.2 cm. The specimen is submitted in toto in cassette A1, following decalcification. MB 05/18/2024 10:44 AM [facility] Microscopic Description Microscopic examination substantiates the above diagnosis. 05/18/2024 10:44 AM [facility] Pathologist Location at [facility] 05/18/2024 10:44 AM [facility] Disclaimer All histochemical and/or immunohistochemical results are interpreted with controls that demonstrate appropriate staining reactions before reporting results. Note on use of immunocytochemistry reagents: This test was developed and its performance characteristic determined by [facility] / [facility], Department of Laboratory Medicine. It has not been cleared or approved by the U.S. Food and Drug Administration (FDA). The FDA has determined that such clearance or approval is not necessary. The test is used for clinical purpose. It should not be regarded as investigational or for research. This laboratory is certified to perform high complexity testing. The performance characteristics of the IHC/UTE assays have been validated on formalin-fixed paraffin embedded tissues only. The assays have not been validated on decalcified tissues. Results should be interpreted with caution. 05/18/2024 10:44 AM [facility] Embedded Images 05/18/2024 10:44 AM [facility] Pathology/Cytolo gy DEBRIDEMENT OF BONE / Unknown 05/15/2024 4:29 PM EMS MANAGER 05/16/2024 8:13 AM [facility] Marcos Quinn DPM LAB - PATHOLOGY/CYTO LOGY ORDERABLES [facility] [address] [place] [address] * (ABNORMAL) HEMOGLOBIN A1C (05/15/2024 12:13 AM [facility]) Hemoglobin A1c 6.6(H) <5.7 % 05/15/2024 12:56 AM [facility] Estimated Average Glucose 143 mg/dL 05/15/2024 12:56 AM [facility] Blood BLOOD SPECIMEN / Unknown Lab Venipuncture / Unknown 05/15/2024 12:13 AM EMS MANAGER 05/15/2024 12:23 AM [facility] Narrative [facility] - 05/15/2024 12:56 AM [facility] HbA1c Interpretation: Normal: < 5.7% Pre-diabetes: 5.7-6.4% Diabetes: Equal to or greater than 6.5% Test results diagnostic of diabetes should be repeated for confirmation. Treatment target values recommended by ADA and other clinical organizations should be used to evaluate metabolic control in patients. This test should not replace glucose testing for patients with Type 1 diabetes, pediatric patients, or women. ??Falsely low HbA1c results may be observed in patients with clinical conditions that shorten erythrocyte life span or decrease mean erythrocyte age such as the presence of unstable hemoglobin variants, elevated hemoglobin F level or other causes of hemolytic anemia. ??HbA1c may not accurately reflect glycemic control when clinical conditions that affect erythrocyte survival are present. ??Severe Iron deficiency anemia may yield falsely high results. ??Hemoglobin A1c assay should not be used to diagnose or monitor diabetes in patients with malignancy, recent blood transfusion, chronic kidney or liver disease. ?? This method may yield falsely low results when hemoglobin (HbF) exceeds 5% in the specimen. The Nevarez Alinity assay for the measurement of HbA1c is a National Glycohemoglobin Standardization Program (NGSP) certified method. Zana Tolentino MD LAB - CHEMISTRY MELIDA COLLINS Performing Organization Address City/[facility] Co de Phone Number [facility] [address] [place] [phone] * VANCOMYCIN LEVEL TROUGH (05/15/2024 12:13 AM EMS MANAGER) Vancomycin Trough 18.2 10.0 - 20.0 ug/mL 05/15/2024 12:52 AM EMS MANAGER [facility] Blood BLOOD SPECIMEN / Unknown Lab Venipuncture / Unknown 05/15/2024 12:13 AM EMS MANAGER 05/15/2024 12:23 AM EMS MANAGER Hattie Liao MD LAB - CHEMISTRY MELIDA COLLINS Performing Organization Address [facility] de Phone Number [facility] [address] [place], [place] [id number] * SODIUM URINE RANDOM (05/14/2024 5:31 PM EMS MANAGER) Sodium Urine <20 mmol/L 05/14/2024 5:54 PM EMS MANAGER [facility] Urine URINE SPECIMEN OBTAINED BY CLEAN CATCH PROCEDURE / Unknown Collection / Unknown 05/14/2024 5:31 PM EMS MANAGER 05/14/2024 5:36 PM EMS MANAGER Zana Tolentino MD LAB - URINE CHEMISTR Y ORDERABLES Performing Organization Address [facility] Co de Phone Number [facility] [address] [place] [phone] * US Retroperitoneal Complete (05/14/2024 2:17 PM EMS MANAGER) Anatomical Region Laterality Modality Abdomen Ultrasound 05/14/2024 4:34 PM EMS MANAGER Impressions 05/14/2024 4:35 PM EMS MANAGER IMPRESSION: 1.Within normal limits. There is no evidence of hydronephrosis or medical renal disease. 2.The ureteral jets were not identified bilaterally during this study. > Interpreting Provider: Chintan Davey MD on 05/14/2024 4:35 PM Narrative 05/14/2024 4:35 PM EMS MANAGER PROCEDURE: ??US RETROPERITONEAL COMPLETE DATE/TIME OF EXAM: ??05/14/2024 2:19 PM CLINICAL INFORMATION: None relevant/not provided if blank. Indication: N17.9: Acute kidney failure, unspecified (HCC) US RETROPERITONEAL COMPLETE, GRAYSCALE AND COLOR DOPPLER IMAGING. HISTORY: N17.9: Acute kidney failure, unspecified (HCC) COMPARISON: None CORRELATION: None FINDINGS: The technologist reported that the examination was very difficult due to the patient's obese body habitus and excessive gas. The kidneys are normal in size, contour, location and orientation. The renal cortices are normal in thickness and echotexture. There are no hydronephrosis, echogenic renal stones, cysts or solid masses in either kidney. The urinary bladder is distended with normal wall thickness, but without evidence of masses. The color Doppler images do not demonstrate a ureteral jet on either side. Specific measurements are as follows: Right kidney: 12.0 x 6.5 x 7.5 cm Right renal cortex: 18 mm Left kidney: 12.2 x 7.8 x 6.4 cm Left renal cortex: 27 mm Procedure Note Chintan Davey MD - 05/14/2024 PROCEDURE: US RETROPERITONEAL COMPLETE DATE/TIME OF EXAM: 05/14/2024 2:19 PM CLINICAL INFORMATION: None relevant/not provided if blank. Indication: N17.9: Acute kidney failure, unspecified (HCC) US RETROPERITONEAL COMPLETE, GRAYSCALE AND COLOR DOPPLER IMAGING. HISTORY: N17.9: Acute kidney failure, unspecified (HCC) COMPARISON: None CORRELATION: None FINDINGS: The technologist reported that the examination was very difficult due to the patient's obese body habitus and excessive gas. The kidneys are normal in size, contour, location and orientation. The renal cortices are normal in thickness and echotexture. There are no hydronephrosis, echogenic renal stones, cysts or solid masses in either kidney. The urinary bladder is distended with normal wall thickness, but without evidence of masses. The color Doppler images do not demonstrate aureteral jet on either side. Specific measurements are as follows: Right kidney: 12.0 x 6.5 x 7.5 cm Right renal cortex: 18 mm Left kidney: 12.2 x 7.8 x 6.4 cm Left renal cortex: 27 mm IMPRESSION: 1.Within normal limits. There is no evidence of hydronephrosis ormedical renal disease. 2.The ureteral jets were not identified bilaterally during this study. > Interpreting Provider: Chintan Davey MD on 05/14/2024 4:35 PM Zana Tolentino MD US ORDERABLES * EOSINOPHIL URINE SMEAR (05/14/2024 1:19 PM EMS MANAGER) Eosinophils Urine NONE SEEN NONE SEEN 05/14/2024 2:59 PM EMS MANAGER [facility] Urine URINE SPECIMEN OBTAINED BY CLEAN CATCH PROCEDURE / Unknown Collection / Unknown 05/14/2024 1:19 PM EMS MANAGER 05/14/2024 1:32 PM EMS MANAGER Zana Tolentino MD LAB - URINE CHEMISTR Y ORDERABLES Performing Organization Address City/[facility]/ZIP Co de Phone Number [facility] [address] [place] [address] * CULTURE BLOOD (05/14/2024 9:25 AM EMS MANAGER) Only the most recent of2 resultswithin the time period is included. Culture No growth day 5 JEFF 05/19/2024 1:31 PM EMS MANAGER [facility] Blood PERIPHERAL BLOOD / Unknown Lab Venipuncture / Unknown 05/14/2024 9:25 AM EMS MANAGER 05/14/2024 9:30 AM EMS MANAGER Zana Tolentino MD LAB - MICROBIOLOGY O RDERABLES [facility] [address] [phone] * (ABNORMAL) B-TYPE NATRIURETIC PEPTIDE (05/14/2024 9:16 AM EMS MANAGER) BNP 140(H) <=100 pg/mL 05/14/2024 10:10 AM EMS MANAGER [facility] Blood BLOOD SPECIMEN / Unknown Lab Venipuncture / Unknown 05/14/2024 9:16 AM EMS MANAGER 05/14/2024 9:30 AM EMS MANAGER Narrative [facility] - 05/14/2024 10:10 AM EMS MANAGER A cutoff of 100 pg/mL has been demonstrated to provide the maximal combination of sensitivity, specificity, and negative predictive value for contributing to the diagnosis of congestive heart failure (CHF) only. ??A B-Type Natriuretic Peptide (BNP) value greater than or equal to 100 pg/mL is consistent with a diagnosis of CHF in the appropriate clinical setting. ??False positive results are more common in females greater than 75 years of age. ??Blood concentrations of natriuretic peptides may also be elevated in patients with myocardial infarction and in patients who are candidates for or are undergoing renal dialysis. Zana Tolentino MD LAB - CHEMISTRY MELIDA COLLINS [facility] [address] [place] [phone] * LACTIC ACID BLOOD (05/14/2024 9:16 AM EMS MANAGER) Lactic Acid 1.0 <=2.0 mmol/L 05/14/2024 9:54 AM EMS MANAGER [facility] Blood BLOOD SPECIMEN / Unknown Lab Venipuncture / Unknown 05/14/2024 9:16 AM EMS MANAGER 05/14/2024 9:30 AM EMS MANAGER Zana Tolentino MD LAB - CHEMISTRY MELIDA COLLINS [facility] [address] [place] [phone] * FOLATE (05/14/2024 9:16 AM EMS MANAGER) Folate 8.5 7.0 - 31.4 ng/mL 05/14/2024 10:27 AM [facility] Blood BLOOD SPECIMEN / Unknown Lab Venipuncture / Unknown 05/14/2024 9:16 AM EMS MANAGER 05/14/2024 9:30 AM EMS MANAGER Zana Tolentino MD LAB - CHEMISTRY MELIDA COLLINS Performing Organization Address City/[facility]/ZIP Co de Phone Number [facility] [address] [place] [phone] * (ABNORMAL) VITAMIN B12 (05/14/2024 9:16 AM EMS MANAGER) Pathologist [facility] Vitamin B12 >2,000(H) 213 - 816 pg/mL 05/14/2024 10:27 AM [facility] Blood BLOOD SPECIMEN / Unknown Lab Venipuncture / Unknown 05/14/2024 9:16 AM EMS MANAGER 05/14/2024 9:30 AM EMS MANAGER Zana Tolentino MD LAB - CHEMISTRY MELIDA COLLINS Performing Organization Address City/[facility]/ZIP Co de Phone Number [facility] [address] [place] [phone] * (ABNORMAL) RETIC COUNT (05/14/2024 4:03 AM EMS MANAGER) Pathologist [facility] Reticulocyte Percent 1.38 0.50 - 2.40 % 05/14/2024 9:13 AM [facility] Reticulocyte Absolute 0.0384 0.0200 - 0.1100 x10E6/uL 05/14/2024 9:13 AM [facility] Ret-HE 23.6(L) 29.0 - 37.9 pg 05/14/2024 9:13 AM [facility] Immature Reticulocyte Fraction 18.2(H) 1.8 - 15.2 % 05/14/2024 9:13 AM [facility] Blood BLOOD SPECIMEN / Unknown Lab Venipuncture / Unknown 05/14/2024 4:03 AM EMS MANAGER 05/14/2024 4:13 AM EMS MANAGER Zana Tolentino MD LAB - HEMATOLOGY ORD ERABLES Performing Organization Address City/[facility]/ZIP Co de Phone Number [facility] [address] [place] [address] * CK BLOOD (05/14/2024 4:03 AM EMS MANAGER) Pathologist [facility] CK 136 30 - 200 U/L 05/14/2024 9:34 AM EMS MANAGER [facility] Blood BLOOD SPECIMEN / Unknown Lab Venipuncture / Unknown 05/14/2024 4:03 AM EMS MANAGER 05/14/2024 4:13 AM EMS MANAGER Zana Tolentino MD LAB - CHEMISTRY MELIDA COLLINS Performing Organization Address [facility] Co de Phone Number [facility] [address] [place] [phone] * VANCOMYCIN LEVEL RANDOM (05/14/2024 4:03 AM EMS MANAGER) Pathologist [facility] Vancomycin Random 14.5 <=40.0 ug/mL 05/14/2024 9:34 AM [facility] Blood BLOOD SPECIMEN / Unknown Lab Venipuncture / Unknown 05/14/2024 4:03 AM EMS MANAGER 05/14/2024 4:13 AM EMS MANAGER Narrative [facility] - 05/14/2024 9:34 AM EMS MANAGER No reference range available for random Vancomycin levels. All results interpreted by ordering physician. Zana Tolentino MD LAB - CHEMISTRY MELIDA COLLINS Performing Organization Address [facility] Co de Phone Number [facility] [address] [place] [phone] * (ABNORMAL) IRON + TRANSFERRIN PANEL (05/14/2024 4:03 AM EMS MANAGER) Pathologist [facility] Iron 11(L) 50 - 175 ug/dL 05/14/2024 9:34 AM [facility] Transferrin 100(L) 174 - 382 mg/dL 05/14/2024 9:34 AM [facility] TIBC Calculated 125(L) 240 - 450 ug/dL 05/14/2024 9:34 AM [facility] Iron Saturation % 9(L) 20 - 50 % 05/14/2024 9:34 AM EMS MANAGER [facility] Blood BLOOD SPECIMEN / Unknown Lab Venipuncture / Unknown 05/14/2024 4:03 AM EMS MANAGER 05/14/2024 4:13 AM EMS MANAGER Zana Tolentino MD LAB - CHEMISTRY MELIDA COLLINS [facility] [address] [place] [phone] * (ABNORMAL) FERRITIN (05/14/2024 4:03 AM EMS MANAGER) Pathologist [facility] Ferritin 1,357(H) 22 - 275 ng/mL 05/14/2024 10:16 AM EMS MANAGER [facility] Blood BLOOD SPECIMEN / Unknown Lab Venipuncture / Unknown 05/14/2024 4:03 AM EMS MANAGER 05/14/2024 4:13 AM EMS MANAGER Zana Tolentino MD LAB - CHEMISTRY MELIDA COLLINS Performing Organization Address City/[facility]/ZIP Co de Phone Number [facility] [address] [place] [phone] * HEPATITIS C ANTIBODY (09/17/2023 12:47 PM CDT) [facility] Hepatitis C Antibody Non-react micah Non-reac tive 09/17/2023 2:10 PM CDT [facility] Comment:Hepatitis C Antibody screen indicates no serologic evidence of past or current infection with Hepatitis C Virus. Patients with unexplained liver disease who are immunocompromised or suspected of having acute Hepatitis C infection may benefit from Nucleic Acid Test (PRABHJOT) for Hepatitis C Viral RNA to confirm Hepatitis C status. Blood BLOOD SPECIMEN / Unknown Lab Venipuncture / Unknown 09/17/2023 12:47 PM CDT 09/17/2023 1:15 PM CDT Ferny Carreon MD LAB - CHEMISTRY ORDERABLES [facility] [address] [place] [phone], [facility] [phone] from Last 3 Months or Most Recently Relevant to Health Maintenance Advance Directives * Full Code (Latest Code Status on File) Date Activated Date Inactivated Comments 05/22/2024 7:44 PM 05/26/2024 2:05 PM * Full Code Date Activated Date Inactivated Comments 05/15/2024 7:22 PM 05/22/2024 7:44 PM Care Teams Fitness Manager Relationship Specialty Start Date End Date Nguyễn Bingham MD [address] [place] [address] PCP - General Family Medicine 07/03/23
--- OUTSIDE RECORDS SUMMARY | 2024-06-07 23:59 | XMS_ITS | Referral Summary ---
Author Organization [facility] Address [address] [place] [address] Care Team Providers Care Inspector Plug Seam Name Role Phone Nguyễn Bingham MD Primary Care Provider [phone] Source Comments [facility],non-owned Affiliates and Associated Physician Practices is amultiple site organization consisting of ambulatory clinics and hospital sitesin [place], [place], [place] and [place]. This disclosure is being madepursuant to the Care Everywhere program and may not contain all information available regarding this patient. Last updated 18.[facility] Encounters Date Type Department Care Team Description 05/13/2024 4:58 PM CAR HIKER - 05/26/2024 1:04 PM CAR HIKER Hospital Encounter [facility] 3E MED/ONC [address] [place] [address] Nicanor Richter MD Hambolu, Kehinde, MD Onyechi, Afoma, MD Brown, Micahla C, MD Podiatry Discharge Disposition: Group Home Facility 05/20/2024 2:17 PM CAR HIKER Anesthesia Event [facility] [address] [place] [phone] James Luong MD Gill, Nicholas William, MD 05/20/2024 1:00 PM CAR HIKER - 05/20/2024 2:31 PM CAR HIKER Surgery [facility] [address] [place] [address] [phone] Marcos Quinn DPSadiq DEBRIDEMENT FOOT WOUND WITH GRAFT- LEFT 05/15/2024 3:00 PM CAR HIKER - 05/15/2024 4:32 PM CAR HIKER Surgery [facility] [address] [place] [address] Marcos Quinn DPM IRRIGATION/DEBRIDEM ENT FOOT/ANKLE 05/15/2024 3:[address] [facility] Anesthesia Event [facility] [address] [place] [address] Ayesha Rodríguez MD Carter, Jeffrey D, MD 05/13/2024 Travel from Last 3 Months Allergies No known active allergies Medications * [...] EXTRA FINE LANCET) 04/14/2023 Active TRUEplus Pen Lupton 31G X 5 MM needle 06/19/2023 Active [...] optimize healing. Doyle can be purchased at [facility] located across from [facility] ([address] [place] [address]) for a reduced cost. storage and backup administrator is encouraged to prevent delivery fees, but if this isn't feasible it can be delivered to the home by calling [phone]. 05/16/2024 5 Active buPROPion SR 12hr (Wellbutrin-SR) 150 MG tablet Take 1 (one) tablet by mouth 2 times daily Active vitamin D, ergocalciferol, (Drisdol) 1.25 MG (82704 UT) capsule Take 1 (one) capsule by [...] Clean-Up) vitamin D, ergocalciferol, (Drisdol) 1.25 MG (26865 UT) capsule 06/17/2023 4 Discontinu ed(List Clean-Up) [...] Discontinu ed(Dose Adjustment ) Cholecalciferol 1.25 MG (33963 UT) Take 50,000 Units by mouth Two times a week 04/01/2023 4 Discontinu ed(List Clean-Up) amLODIPine (Norvasc) 5 MG tablet Take 1 (one) tablet by mouth once daily 4 Discontinu ed(Clinica l Decision) Active Problems Problem Noted Date Diagnosed Date Controlled type 2 diabetes m rodo, with long-term current use of insulin 05/24/2024 [...] (ACR 44) > start losartan 25 03/17 Anemia 03/10/2023 07/16/2023 Overview (07/16/2023): Last Assessment [...] diabetic shoes with custom offloading inserts for [facility] sheogear - Heel strike shoe is causing [...] diabetic shoes with custom offloading inserts for emt intermediate sheogear - Heel strike shoe is causing [...] 05/24/2024 Hyperkalemia 05/19/2024 05/24/2024 Hyperglycemia 05/19/2024 05/24/2024 Immunizations Name Administration Dates Next Due INFLUENZA [...] Recorded Patient Health Questionnaire-2 Score 1 10/01/2023 [facility] of Occupat ional Health - Occupational Stress [...] any time in the past 12 m [facility], were you homeless or living in a m[facility] (including now)? No 05/13/2024 Sex and Gender Information Value Date Recorded Sex Assigned at Not on file Gender Identity Not on file Sexual Orientation Not on file Last Filed Vital Signs Vital Sign Reading Time Taken Comments Blood Pressure 115/73 05/26/2024 11:49 AM CAR HIKER Pulse 94 05/26/2024 11:49 AM CAR HIKER Temperature 36.9 ??C (98.4 ??F) 05/26/2024 1 1:49 AM CAR HIKER Respiratory Rate 23 05/26/2024 4:01 AM CAR HIKER Oxygen Saturation 95% 05/26/2024 11: 49 AM CAR HIKER Inhaled Oxygen Concentration 21% 02/2024 11:13 PM CAR HIKER Weight 183.9 kg (405 lb 6.4 oz) 024 10:13 PM CAR HIKER Height 200.7 cm (6' 7 ) 05/13/2024 10:1 3 PM CAR HIKER Body Mass Index 45.67 05/13/2024 10:13 PM CAR HIKER Functional Status Functional Status Response Date of Assess ment Is person deaf or have serious hearing difficult y? No 05/13/2024 Is person blind or have serious difficulty seein g? No 05/13/2024 Does person have serious dif ficulty walking/climbing stairs? Yes 05/13/2024 Does person have difficulty dressing/bathing? No 05/13/2024 Does person have difficulty doing errands alone? No 05/13/2024 Cognitive Status Response Date of Assessm ent Does person have difficulty concentrating/remembering/making decisions? No 05/13/2024 Plan of Treatment Not on file Medical Devices Implanted Type Area Fried Cake Maker Device Identifier Shelf Expiration Date Model / Serial / Lot Amino [place] Plus Placental Allograft Membrane Implanted:Qty: 1 on 05/20/2024 by Marcos Quinn DPM at [facility] Left: Foot Integra Lifescio[employer]fe Catalina 01/08/2029 [id number] / / [id number] Description:DIV 013 Cytal Wound Matrix 2-Layer Implanted:Qty: 1 on 05/20/2024 by Marcos Quinn DPM at [facility] Left: Foot ACell Inc 02/05/2025 [id number] / / [id number] Amino [place] Plus Placental Allograft Membrane Implanted:Qty: 1 on 05/20/2024 by Marcos Quinn DPM at [facility] Left: Foot Integra Lifescio[employer]fe Catalina 01/08/2029 [id number] / / [id number] Amino [place] Plus Placental Allograft Membrane Implanted:Qty: 1 on 05/20/2024 by Marcos Quinn DPM at [facility] Left: Foot Integra Incident [employer]cio[employer]fe Catalina [id number] / / [id number] Description:div 12 Amino [place] Plus Placental Allograft Membrane Implanted:Qty: 1 on 05/20/2024 by Marcos Quinn DPM at [facility] Left: Foot Integra [employer]esc[employer]fe Catalina 11/24/2028 [id number] / / [id number] Amino [place] Plus Placental Allograft Implanted:Qty: 1 on 05/20/2024 by Marcos Quinn DPM at [facility] Left: Foot Integra [employer]escio[employer]fe Catalina 01/08/2029 [id number] / / [id number] Description:div 011 Procedures Procedure Name Priority Date/Time Associated Diagnosis Comments CARDIAC RHYTHM STRIP ORDER 05/27/2024 5:02 PM CAR HIKER GLUCOSE - POINT OF CARE Routine 05/26/2024 11:48 AM CAR HIKER GLUCOSE - POINT OF CARE Routine 05/26/2024 8:04 AM CAR HIKER GLUCOSE - POINT OF CARE Routine 05/25/2024 8:59 PM CAR HIKER GLUCOSE - POINT OF CARE Routine 05/25/2024 4:36 PM CAR HIKER GLUCOSE - POINT OF CARE Routine 05/25/2024 11:36 AM CAR HIKER GLUCOSE - POINT OF CARE Routine 05/25/2024 8:12 AM CAR HIKER GLUCOSE - POINT OF CARE Routine 05/24/2024 7:43 PM CAR HIKER GLUCOSE - POINT OF CARE Routine 05/24/2024 5:12 PM CAR HIKER GLUCOSE - POINT OF CARE Routine 05/24/2024 12:30 PM CAR HIKER GLUCOSE - POINT OF CARE Routine 05/24/2024 7:40 AM CAR HIKER RENAL FUNCTION PANEL AM Draw 05/24/2024 5:08 AM CAR HIKER GLUCOSE - POINT OF CARE Routine 05/23/2024 7:43 PM CAR HIKER GLUCOSE - POINT OF CARE Routine 05/23/2024 5:17 PM CAR HIKER GLUCOSE - POINT OF CARE Routine 05/23/2024 11:46 AM CAR HIKER GLUCOSE - POINT OF CARE Routine 05/23/2024 7:38 AM CAR HIKER RENAL FUNCTION PANEL AM Draw 05/23/2024 3:33 AM CAR HIKER GLUCOSE - POINT OF CARE Routine 05/22/2024 9:22 PM CAR HIKER GLUCOSE - POINT OF CARE Routine 05/22/2024 5:29 PM CAR HIKER GLUCOSE - POINT OF CARE Routine 05/22/2024 12:15 PM CAR HIKER GLUCOSE - POINT OF CARE Routine 05/22/2024 7:20 AM CAR HIKER RENAL FUNCTION PANEL AM Draw 05/22/2024 3:09 AM CAR HIKER GLUCOSE - POINT OF CARE Routine 05/21/2024 8:39 PM CAR HIKER GLUCOSE - POINT OF CARE Routine 05/21/2024 5:12 PM CAR HIKER GLUCOSE - POINT OF CARE Routine 05/21/2024 11:59 AM CAR HIKER GLUCOSE - POINT OF CARE Routine 05/21/2024 7:47 AM CAR HIKER RENAL FUNCTION PANEL AM Draw 05/21/2024 3:03 AM CAR HIKER GLUCOSE - POINT OF CARE Routine 05/20/2024 7:40 PM CAR HIKER GLUCOSE - POINT OF CARE Routine 05/20/2024 5:59 PM CAR HIKER GLUCOSE - POINT OF CARE Routine 05/20/2024 4:42 PM CAR HIKER CULTURE FUNGUS OTHER+FUNGUS SMEAR STAT 05/20/2024 2:58 PM CAR HIKER Diagnosis unknown CULTURE WOUND+GRAM STAIN STAT 05/20/2024 2:58 PM CAR HIKER Diagnosis unknown CULTURE ANAEROBE STAT 05/20/2024 2:58 PM CAR HIKER Diagnosis unknown GA SANTI MUSC/FASCIA 20 SQ CM/< 05/20/2024 1:48 PM CAR HIKER Diagnosis unknown Special Needs NEEDS INCOMING INSPECTOR, TPS, VERSAJET, VASHE IRRIGATION SOLUTION, INTEGRA EP (JAGJIT) NOTIFIED PER OFFICE(QUEENIE) 05/19 TM GLUCOSE - POINT OF CARE Routine 05/20/2024 8:56 AM CAR HIKER RENAL FUNCTION PANEL AM Draw 05/20/2024 3:09 AM CAR HIKER GLUCOSE - POINT OF CARE Routine 05/19/2024 10:16 PM CAR HIKER GLUCOSE - POINT OF CARE Routine 05/19/2024 8:17 PM CAR HIKER GLUCOSE - POINT OF CARE Routine 05/19/2024 5:11 PM CAR HIKER GLUCOSE - POINT OF CARE Routine 05/19/2024 12:03 PM CAR HIKER GLUCOSE - POINT OF CARE Routine 05/19/2024 7:29 AM CAR HIKER RENAL FUNCTION PANEL AM Draw 05/19/2024 2:16 AM CAR HIKER GLUCOSE - POINT OF CARE Routine 05/18/2024 7:46 PM CAR HIKER GLUCOSE - POINT OF CARE Routine 05/18/2024 6:07 PM CAR HIKER GLUCOSE - POINT OF CARE Routine 05/18/2024 11:58 AM CAR HIKER GLUCOSE - POINT OF CARE Routine 05/18/2024 9:20 AM CAR HIKER GLUCOSE - POINT OF CARE Routine 05/18/2024 7:42 AM CAR HIKER RENAL FUNCTION PANEL AM Draw 05/18/2024 3:38 AM CAR HIKER CBC W/O DIFFERENTIAL AM Draw 05/18/2024 3:38 AM CAR HIKER GLUCOSE - POINT OF CARE Routine 05/17/2024 11:12 PM CAR HIKER GLUCOSE - POINT OF CARE Routine 05/17/2024 10:29 PM CAR HIKER GLUCOSE - POINT OF CARE Routine 05/17/2024 6:02 PM CAR HIKER PROTEIN CREATININE RATIO URINE RANDOM PNL Routine 05/17/2024 1:14 PM CAR HIKER VAS ARTERIAL ANKLE ARM INDEX Routine 05/17/2024 12:04 PM CAR HIKER Ulcer of left foot with other severity (HCC) GLUCOSE - POINT OF CARE Routine 05/17/2024 11:57 AM CAR HIKER CBC W/O DIFFERENTIAL STAT 05/17/2024 9:46 AM CAR HIKER GLUCOSE - POINT OF CARE Routine 05/17/2024 7:57 AM CAR HIKER COMPLEMENT C4 Routine 05/17/2024 5:00 AM CAR HIKER COMPLEMENT C3 Routine 05/17/2024 5:00 AM CAR HIKER BASIC METABOLIC PANEL (CALCIUM TOTAL) AM Draw 05/17/2024 5:00 AM CAR HIKER GLUCOSE - POINT OF CARE Routine 05/16/2024 9:36 PM CAR HIKER GLUCOSE - POINT OF CARE Routine 05/16/2024 6:18 PM CAR HIKER MRI FOOT LEFT WO CONTRAST Routine 05/16/2024 5:20 PM CAR HIKER Ulcer of left foot with other severity (HCC) URINALYSIS REFLEX TO MICROSCOPIC NO CULTURE Routine 05/16/2024 12:57 PM CAR HIKER GLUCOSE - POINT OF CARE Routine 05/16/2024 11:07 AM CAR HIKER VANCOMYCIN LEVEL PEAK STAT 05/16/2024 9:04 AM CAR HIKER GLUCOSE - POINT OF CARE Routine 05/16/2024 7:53 AM CAR HIKER DIFFERENTIAL MANUAL AM Draw 05/16/2024 3 :09 AM CAR HIKER RENAL FUNCTION PANEL AM Draw 05/16/2024 3:09 AM CAR HIKER CBC W AUTO DIFFERENTIAL AM Draw 05/16/2024 3:09 AM CAR HIKER GLUCOSE - POINT OF CARE Routine 05/15/2024 8:43 PM CAR HIKER GLUCOSE - POINT OF CARE Routine 05/15/2024 6:01 PM CAR HIKER XR FOOT LEFT 2VW STAT 05/15/2024 5:31 PM CAR HIKER Left foot infection GLUCOSE - POINT OF CARE Routine 05/15/2024 5:06 PM CAR HIKER CULTURE FUNGUS OTHER+FUNGUS SMEAR STAT 05/15/2024 4:34 PM CAR HIKER Left foot infection CULTURE TISSUE+GRAM STAIN STAT 05/15/2024 4:34 PM CAR HIKER Left foot infection CULTURE ANAEROBE STAT 05/15/2024 4:34 PM CAR HIKER Left foot infection CULTURE TISSUE+GRAM STAIN STAT 05/15/2024 4:33 PM CAR HIKER Left foot infection CULTURE AFB+SMEAR STAT 05/15/2024 4:3 3 PM CAR HIKER Left foot infection CULTURE ANAEROBE STAT 05/15/2024 4:33 PM CAR HIKER Left foot infection PATHOLOGY TISSUE EXAM (STL) Routine 05/15/2024 4:29 PM CAR HIKER Left foot infection GA SANTI SUBQ TISSUE 20 SQ CM/< 05/15/2024 3:18 PM CAR HIKER GLUCOSE - POINT OF CARE Routine 05/15/2024 1:31 PM CAR HIKER GLUCOSE - POINT OF CARE Routine 05/15/2024 7:50 AM CAR HIKER DIFFERENTIAL MANUAL AM Draw 05/15/2024 12:13 AM CAR HIKER HEMOGLOBIN A1C Routine 05/15/2024 12:13 AM CAR HIKER RENAL FUNCTION PANEL AM Draw 05/15/2024 12:13 AM CAR HIKER CBC W AUTO DIFFERENTIAL AM Draw 05/15/2024 12:13 AM CAR HIKER VANCOMYCIN LEVEL TROUGH STAT 05/15/2024 12:13 AM CAR HIKER GLUCOSE - POINT OF CARE Routine 05/14/2024 10:02 PM CAR HIKER PROTEIN CREATININE RATIO URINE RANDOM PNL Routine 05/14/2024 5:31 PM CAR HIKER SODIUM URINE RANDOM Routine 05/14/2024 5 :31 PM CAR HIKER VANCOMYCIN LEVEL PEAK STAT 05/14/2024 5:06 PM CAR HIKER GLUCOSE - POINT OF CARE Routine 05/14/2024 4:50 PM CAR HIKER US RETROPERITONEAL COMPLETE Routine 05/14/2024 2:17 PM CAR HIKER RENALDO (acute kidney injury) (HCC) EOSINOPHIL URINE SMEAR Routine 1:19 PM CAR HIKER CULTURE WOUND+GRAM STAIN Routine 05/14/2024 12:22 PM CAR HIKER GLUCOSE - POINT OF CARE Routine 05/14/2024 11:33 AM CAR HIKER CULTURE BLOOD STAT 05/14/2024 9:25 AM CAR HIKER FOLATE STAT 05/14/2024 9:16 AM CAR HIKER VITAMIN B12 STAT 05/14/2024 9:16 AM CAR HIKER LACTIC ACID BLOOD STAT 05/14/2024 9:1 6 AM CAR HIKER B-TYPE NATRIURETIC PEPTIDE STAT 05/14/2024 9:16 AM CAR HIKER CULTURE BLOOD STAT 05/14/2024 9:16 AM CAR HIKER GLUCOSE - POINT OF CARE Routine 05/14/2024 8:16 AM CAR HIKER VANCOMYCIN LEVEL RANDOM STAT 05/14/2024 4:03 AM CAR HIKER CK BLOOD STAT 05/14/2024 4:03 AM CAR HIKER RETIC COUNT STAT 05/14/2024 4:03 AM CAR HIKER FERRITIN STAT 05/14/2024 4:03 AM CAR HIKER IRON + TRANSFERRIN PANEL STAT 05/14/2024 4:03 AM CAR HIKER DIFFERENTIAL MANUAL AM Draw 05/14/2024 4 :03 AM CAR HIKER RENAL FUNCTION PANEL AM Draw 05/14/2024 4:03 AM CAR HIKER CBC W AUTO DIFFERENTIAL AM Draw 05/14/2024 4:03 AM CAR HIKER GLUCOSE - POINT OF CARE Routine 05/13/2024 11:10 PM CAR HIKER CBC W AUTO DIFFERENTIAL Routine 05/13/2024 6:30 PM CAR HIKER BASIC METABOLIC PANEL (CALCIUM TOTAL) STAT 05/13/2024 6:30 PM CAR HIKER HEPATITIS C ANTIBODY Routine 09/17/2023 12:47 PM CDT Polyneuropathy associated with underlying disease (HCC) from Last 3 Months or Most Recently Relevant to Health Maintenance Results * CARDIAC RHYTHM STRIP ORDER (05/27/2024 5:02 PM CAR HIKER) Narrative 05/27/2024 5:02 PM CAR HIKER Ordered by an unspecified provider. Scanned Document CARDIAC SERVICES ORD ERABLES * (ABNORMAL) GLUCOSE - POINT OF CARE (05/26/2024 11:48 AM CAR HIKER) Only the most recent of55 resultswithin the time period is included. Glucose WB/POC 127(H) 70 - 99 mg/dL 06/06/2024 7:01 AM [facility] Specimen Type Cap Fingerstick 2023 7:01 AM [facility] Blood BLOOD SPECIMEN / Unknown 05/26/2024 11:48 AM CAR HIKER 06/06/2024 7:01 AM CAR HIKER Tereza Mcpherson MD LAB - POINT OF CARE ORDERABLES [facility] [address] [place] [address] * (ABNORMAL) RENAL FUNCTION PANEL (05/24/2024 5:[address] [facility]) Only the most recent of10 resultswithin the time period is included. Pathologist [facility] Glucose 123(H) 70 - 99 mg/dL 05/24/2024 5:56 AM [facility] Sodium 140 136 - 145 mmol/L 05/24/2024 5:56 AM [facility] Potassium 4.3 3.5 - 5.1 mmol/L 05/24/2024 5:56 AM [facility] Chloride 111(H) 98 - 107 mmol/L 05/24/2024 5:56 AM [facility] CO2 23 22 - 29 mmol/L 05/24/2024 5:56 AM [facility] Calcium 8.9 8.4 - 10.4 mg/dL 05/24/2024 5:56 AM [facility] Anion Gap 6 6 - 16 mmol/L 05/24/2024 5:56 AM [facility] BUN 26(H) 5.3 - 18.7 mg/dL 05/24/2024 5:56 AM [facility] Creatinine 1.33(H) 0.72 - 1.25 mg/dL 05/24/2024 5:56 AM [facility] Albumin 2.0(L) 3.4 - 5.0 gm/dL 05/24/2024 5:56 AM [facility] Phosphorus 4.2 2.5 - 4.5 mg/dL 05/24/2024 5:56 AM [facility] eGFR by CKD-EPI 68(L) >=90 mL/min/1.7 3 m2 05/24/2024 5:56 AM CAR HIKER [facility] Blood BLOOD SPECIMEN / Unknown Lab Venipuncture / Unknown 05/24/2024 5:08 AM CAR HIKER 05/24/2024 5:22 AM CAR HIKER Manpreet Stuart MD LAB - CHEMISTRY MELIDA COLLINS Performing Organization Address [facility] Co de Phone Number [facility] [address] [place] [address] * CULTURE WOUND+GRAM STAIN (05/20/2024 2:58 PM CAR HIKER) Only the most recent of2 resultswithin the time period is included. Culture Rare normal skin jero JEFF 05/22/2024 9:21 PM CAR HIKER [facility] Gram Stain Moderate Polymorphonuclear cells 05/22/2024 9:21 PM CAR HIKER [facility] Gram Stain No organisms seen 024 9:21 PM CAR HIKER [facility] Microbiology ENTIRE FOOT / Unknown 05/20/2024 2:58 PM CAR HIKER 05/20/2024 3:58 PM CAR HIKER Comment:Pre-op diagnosis: Diagnosis unknown [R69] Narrative [facility] - 05/22/2024 9:21 PM CAR HIKER Surgical Description: Left Foot Wound Culture Marcos Quinn DPM LAB - MICROBIOLOGY O RDERATORREY Performing Organization Address [facility] Co de Phone Number [facility] [address] [place] [phone] * CULTURE ANAEROBE (05/20/2024 2:58 PM CAR HIKER) Only the most recent of3 resultswithin the time period is included. Culture No anaerobic organisms isolated JEFF 05/25/2024 3:37 PM CAR HIKER [facility] Microbiology ENTIRE FOOT / Unknown 05/20/2024 2:58 PM CAR HIKER 05/20/2024 3:58 PM CAR HIKER Comment:Pre-op diagnosis: Diagnosis unknown [R69] Narrative [facility] - 05/25/2024 3:37 PM CAR HIKER Surgical Description: Left Foot Wound Culture Marcos Quinn DPM LAB - MICROBIOLOGY O RDERABLES Performing Organization Address City/[facility]/ZIP Co de Phone Number [facility] [address] [place] [address], [facility] [phone] * (ABNORMAL) CBC W/O DIFFERENTIAL (05/18/2024 3:38 AM CAR HIKER) Only the most recent of2 resultswithin the time period is included. WBC 14.5(H) 4.0 - 10.7 x10E9/L 05/18/2024 4:40 AM [facility] RBC Count 2.76(L) 4.30 - 5.80 x10E12/L 05/18/2024 4:40 AM [facility] Hemoglobin 7.7(L) 13.3 - 17.5 g/dL 05/18/2024 4:40 AM [facility] Hematocrit 24.7(L) 38.7 - 51.1 % 05/18/2024 4:40 AM [facility] MCV 89.5 80.0 - 98.0 fL 05/18/2024 4:40 AM [facility] MCH 27.9 26.7 - 33.6 pg 05/18/2024 4:40 AM [facility] MCHC 31.2(L) 31.7 - 36.3 g/dL 05/18/2024 4:40 AM [facility] RDW-CV 13.8 11.3 - 14.8 % 05/18/2024 4:40 AM [facility] Platelet Count 330 150 - 420 x10E9/L 05/18/2024 4:40 AM [facility] MPV 8.6 7.8 - 11.4 fL 05/18/2024 4:40 AM [facility] Blood BLOOD SPECIMEN / Unknown Lab Venipuncture / Unknown 05/18/2024 3:38 AM CAR HIKER 05/18/2024 4:20 AM CAR HIKER Manpreet Stuart MD LAB - HEMATOLOGY ORD ERABLES [facility] [address] [place] [address] * (ABNORMAL) PROTEIN CREATININE RATIO URINE RANDOM PNL (05/17/2024 1:14 PM CAR HIKER) Only the most recent of2 resultswithin the time period is included. Protein Urine 54.6(H) <11.9 mg/dL 05/17/2024 1:53 PM CAR HIKER [facility] Creatinine Urine 77.41 mg/dL 05/17/2024 1:53 PM CAR HIKER [facility] Protein/Creatin ine Ratio Urine 0.71 05/17/2024 1:53 PM CAR HIKER [facility] Urine URINE SPECIMEN OBTAINED BY CLEAN CATCH PROCEDURE / Unknown Collection / Unknown 05/17/2024 1:14 PM CAR HIKER 05/17/2024 1:31 PM CAR HIKER Katerina Weaver DO LAB - URINE CHEMISTR Y ORDERABLES [facility] [address] [place] [id number] * VAS Arterial Ankle Arm Index (05/17/2024 12:04 PM CAR HIKER) Anatomical Region Laterality Modality Ankle / Foot, Upper Extremity Ul trasound 05/17/2024 11:1 9 AM CAR HIKER Narrative Procedure Note Gerry Villalobos MD - 05/17/2024 [facility] [address] [place] [id number] Lower Extremity Arterial Doppler Report Pat.Name: RENE HYATT Pat.ID: [id number] .Date: 05/17/2024 Exam Time: 11:19:00 AM Study Type:MOSES/PVR Age: 11 1980,43Y Sex: MALE Sonogrphr: Marina Calderón RVT, [facility] Pat. Stat.:Inpatient Reason for Study: Left foot wound for months, little improvement History / Clinical: Hypertension, Diabetes, Morbid obesity Procedures: Ankle Arm Index Visit ID: [id number] ++++++++++++++++++++++++++++++++++++ SUMMARY: ++++++++++++++++++++++++++++++++++++ No evidence for significant arterial insufficiency of either the right or left lower extremity at rest. Bilateral digital tracings are pulsatile. Gerry Garcia MD, VI, Vascular & Interventional radiologist, reviewed the images [...] LES * COMPLEMENT C4 (05/17/2024 5:00 AM CAR HIKER) Complement C4 19 15 - 57 mg/dL 05/17/2024 10:52 AM [facility] Blood BLOOD SPECIMEN / Unknown Lab Venipuncture / Unknown 05/17/2024 5:00 AM CAR HIKER 05/17/2024 5:57 AM CAR HIKER Katerina Weaver DO LAB - SEROLOGY ORDER [facility] [address] [place] [address], [facility] [phone] * (ABNORMAL) BASIC METABOLIC PANEL (CALCIUM TOTAL) (05/17/2024 5:00 AM CAR HIKER) Only the most recent of2 resultswithin the time period is included. Pathologist [facility] Glucose 207(H) 70 - 99 mg/dL 05/17/2024 6:26 AM [facility] Sodium 135(L) 136 - 145 mmol/L 05/17/2024 6:26 AM [facility] Potassium 4.2 3.5 - 5.1 mmol/L 05/17/2024 6:26 AM [facility] Chloride 107 98 - 107 mmol/L 05/17/2024 6:26 AM [facility] CO2 20(L) 22 - 29 mmol/L 05/17/2024 6:26 AM [facility] Calcium 7.9(L) 8.4 - 10.4 mg/dL 05/17/2024 6:26 AM [facility] Anion Gap 8 6 - 16 mmol/L 05/17/2024 6:26 AM [facility] BUN 37(H) 5.3 - 18.7 mg/dL 05/17/2024 6:26 AM [facility] Creatinine 1.83(H) 0.72 - 1.25 mg/dL 05/17/2024 6:26 AM [facility] eGFR by CKD-EPI 46(L) >=90 mL/min/1.7 3 m2 05/17/2024 6:26 AM [facility] Blood BLOOD SPECIMEN / Unknown Lab Venipuncture / Unknown 05/17/2024 5:00 AM [facility] 05/17/2024 5:57 AM [facility] Katerina Weaver DO LAB - CHEMISTRY MELIDA COLLINS [facility] [address] [place] [address] * COMPLEMENT C3 (05/17/2024 5:00 AM [facility]) Complement C3 100 82 - 193 mg/dL 05/17/2024 10:52 AM [facility] Blood BLOOD SPECIMEN / Unknown Lab Venipuncture / Unknown 05/17/2024 5:00 AM [facility] 05/17/2024 5:57 AM [facility] Katerina Weaver DO LAB - CHEMISTRY MELIDA COLLINS [address] [address], [facility] [phone] * MRI Foot Left Wo Contrast (05/16/2024 5:20 PM [facility]) Anatomical Region Laterality Modality Ankle / Foot Magnetic Resonan ce 05/17/2024 8:48 AM [facility] Impressions 05/17/2024 9:04 AM [facility] IMPRESSION: 1. ??Large soft tissue wound//debridement surrounding the calcaneus and extending to bone. 2. ??There is mild osteomyelitis in the lateral calcaneal tubercle. ??However most of the calcaneal marrow changes are likely reactive. 3. ??No visible abscess. 4. ??Detached peroneal tendons. 5. ??Other findings as described > Interpreting Provider: Gila Licea MD on 05/17/2024 9:04 AM Narrative 05/17/2024 9:04 AM CAR HIKER PROCEDURE: ??MRI FOOT LEFT WO CONTRAST DATE/TIME [...] TO MICROSCOPIC NO CULTURE (05/16/2024 12:57 PM CAR HIKER) Color UA Yellow Yellow, Straw 05/16/2024 1:17 PM CAR [facility]ER [facility] Clarity UA Turbid(A) Clear 05/16/2024 1:17 PM CAR [facility]ER [facility] Glucose UA Normal Normal 05/16/2024 1:17 PM CAR H[facility]ER [facility] Bilirubin UA Negative Negative 05/16/2024 1:17 PM [facility] Ketone UA Trace(A) Negative 05/16/2024 1:17 PM CAR [facility]ER [facility] Specific Leo UA 1.016 1.005 - 1.030 05/16/2024 1:17 PM [facility] Blood UA 2+(A) Negative 05/16/2024 1:17 PM [facility] pH UA 5.5 5.0 - 9.0 pH 05/16/2024 1:17 PM [facility] Protein UA 1+(A) Negative 05/16/2024 1:17 PM [facility] Urobilinogen UA Normal Normal mg/dL 05/16/2024 1:17 PM CAR H[facility]ER [facility] Nitrite UA Negative Negative 05/16/2024 1:17 PM [facility] Leukocyte UA 75 MIKKI/uL(A) Negative 05/16/2024 1:17 PM CAR [facility]ER [facility] RBC UA None Seen 0 - 5 # /hpf 05/16/2024 1:17 PM CAR [facility]ER [facility] WBC UA 6-10(A) 0 - 5 # /hpf 05/16/2024 1:17 PM CAR [facility]ER [facility] Bacteria UA None Seen None Seen 05/16/2024 1:17 PM [facility] Squamous Epithelial Cells 0-2 0 - 5 /hpf 05/16/2024 1:17 PM [facility] Budding Yeast Few(A) None seen /hpf 05/16/2024 1:17 PM [facility] Urine URINE SPECIMEN OBTAINED BY CLEAN CATCH PROCEDURE / Unknown Collection / Unknown 05/16/2024 12:57 PM CAR HIKER 05/16/2024 1:04 PM CAR [facility]IKER Narrative [facility] - 05/16/2024 1:17 PM CAR HIKER Katerina Weaver DO LAB - URINALYSIS ORD ERABLES Performing Organization Address City/[facility]/ZIP Co de Phone Number [facility] [address] [place], [place] [phone] * (ABNORMAL) VANCOMYCIN LEVEL PEAK (05/16/2024 9:04 AM CAR HIKER) Only the most recent of2 resultswithin the time period is included. Vancomycin Peak 40.3(H) 25.0 - 40.0 ug/mL 05/16/2024 9:26 AM [facility] Blood BLOOD SPECIMEN / Unknown Lab Venipuncture / Unknown 05/16/2024 9:04 AM CAR HIKER 05/16/2024 9:06 AM CAR HIKER Hattie Liao MD LAB - CHEMISTRY ORDE DENNIS [facility] [address] [place], [place] [phone] * (ABNORMAL) DIFFERENTIAL MANUAL (05/16/2024 3:09 AM CAR HIKER) Only the most recent of3 resultswithin the time period is included. Neutrophil % 88(H) 41 - 74 % 05/16/2024 4:51 AM CAR HIKER [facility] Lymphocyte % 7(L) 17 - 47 % 05/16/2024 4:51 AM [facility] Monocyte % 4 3 - 11 % 05/16/2024 4:51 AM [facility] Myelocyte % 1(H) 0% % 05/16/2024 4:51 AM [facility] Neutrophil Absolute 19.10(H) 1.60 - 7.50 x10E9/L 05/16/2024 4:51 AM [facility] Lymphocyte Absolute 1.52 1.00 - 4.40 x10E9/L 05/16/2024 4:51 AM [facility] Monocyte Absolute 0.87 0.15 - 1.00 x10E9/L 05/16/2024 4:51 AM [facility] RBC Morphology NORMAL 05/16/2024 4:51 AM [facility] Platelet Morphology NORMAL 05/16/2024 4:51 AM [facility] Blood BLOOD SPECIMEN / Unknown Lab Venipuncture / Unknown 05/16/2024 3:09 AM CAR [facility]ER 05/16/2024 4:[address] [facility] Nicanor Richter MD LAB - HEMATOLOGY ORDERABLES Performing Organization Address City/State/[facility] Co de Phone Number [facility] [address] [place], [place] [phone] * (ABNORMAL) CBC W AUTO DIFFERENTIAL (05/16/2024 3:09 AM CAR HIKER) Only the most recent of4 resultswithin the time period is included. WBC 21.7(H) 4.0 - 10.7 x10E9/L 05/16/2024 4:51 AM [facility] RBC Count 2.62(L) 4.30 - 5.80 x10E12/L 05/16/2024 4:51 AM [facility] Hemoglobin 7.3(L) 13.3 - 17.5 g/dL 05/16/2024 4:51 AM [facility] Hematocrit 23.6(L) 38.7 - 51.1 % 05/16/2024 4:51 AM [facility] MCV 90.1 80.0 - 98.0 fL 05/16/2024 4:51 AM [facility] MCH 27.9 26.7 - 33.6 pg 05/16/2024 4:51 AM [facility] MCHC 30.9(L) 31.7 - 36.3 g/dL 05/16/2024 4:51 AM [facility] RDW-CV 13.9 11.3 - 14.8 % 05/16/2024 4:51 AM [facility] Platelet Count 300 150 - 420 x10E9/L 05/16/2024 4:51 AM [facility] MPV 9.3 7.8 - 11.4 fL 05/16/2024 4:51 AM [facility] Blood BLOOD SPECIMEN / Unknown Lab Venipuncture / Unknown 05/16/2024 3:09 AM CAR HIKER 05/16/2024 4:09 AM CAR [facility]ER Nicanor Richter MD LAB - HEMATOLOGY ORDERABLES Performing Organization Address [facility]/State/[facility] Co de Phone Number [facility] [address] [place], [place] [phone] * XR Foot Left 2Vw (05/15/2024 5:31 PM CAR HIKER) Anatomical Region Laterality Modality Ankle / Foot Radiographic Haylee ging 05/16/2024 7:16 AM CAR HIKER Impressions 05/16/2024 9:15 AM CAR [facility]ER IMPRESSION: Ulceration versus surgical debridement of the posterior plantar soft tissue of the foot and calcaneus. Report drafted by Ketan Meier MD (resident medical officer) I, Gila Licea MD have personally reviewed and interpreted this examination/study. > Interpreting Provider: Gila Licea MD on 05/16/2024 9:15 AM Narrative 05/16/2024 9:15 AM CAR [facility]ER EXAMINATION: XR FOOT LEFT 2VW HISTORY: L08.9: [...] calcaneus. Report drafted by Ketan Meier MD (resident medical officer) I, Gila Licea MD have personally reviewed and interpreted this examination/study. > Interpreting Provider: Gila Licea MD on 05/16/2024 9:15 AM Marcos Quinn DPM DIAGNOSTIC IMAGING O RDERABLES * (ABNORMAL) CULTURE TISSUE+GRAM STAIN (05/15/2024 4:34 PM CAR HIKER) Only the most recent of2 resultswithin the time period is included. Culture Rare Streptococcus agalactiae (Group B)(AA) 05/18/2024 11:57 PM CAR [facility] Gram Stain Rare Polymorphonuclear cells 05/18/2024 11:57 PM [facility] Gram Stain No organisms seen 024 11:[address] Microbiology ENTIRE FOOT / Unknown 05/15/2024 4:34 PM CAR HIKER 05/15/2024 8:29 PM CAR HIKER Narrative [facility] - 05/18/2024 11:57 PM CAR HIKER Susceptibility testing of penicillin, other beta-lactam antibiotics, and vancomycin is not necessary for beta-hemolytic streptococci groups A,B,C and G because resistant strains have not been recognized. Surgical Description: Left Foot Marcos Quinn DPM LAB - MICROBIOLOGY O RDERATORREY [facility] [address] [place] [address], [facility] [phone] * PATHOLOGY TISSUE EXAM (STL) (05/15/2024 4:29 PM CAR HIKER) Case Report Surgical Pathology Report ? Case: [id number] ? Authorizing Provider: ??Marcos Quinn DPM ? Collected: ? 05/15/2024 04:29 PM ? Ordering Location: ? [facility] ?Received: ?05/16/2024 08:13 AM ? Pathologist: ? Kaci Mayo MD ? Specimen: ?Bone Debridement, Calcaneus Bone Left Foot ? 05/18/2024 10:44 AM [facility] Final Diagnosis Bone, left calcaneus, debridement - Focal acute osteomyelitis 05/18/2024 10:44 AM [facility] Clinical History The patient is a 43-year-old man with left foot infection. Operative procedure: irrigation/debridemen t of foot/ankle. 05/18/2024 10:44 AM [facility] Gross Description The [...] A1, following decalcification. MB 05/18/2024 10:44 AM [facility] Microscopic Description Microscopic examination substantiates the above diagnosis. 05/18/2024 10:44 AM [facility] Pathologist Location at [facility] 05/18/2024 10:44 AM [facility] Disclaimer All histochemical and/or immunohistochemical results are interpreted with controls that demonstrate appropriate staining reactions before reporting results. Note on use of immunocytochemistry reagents: This test was developed and its performance characteristic determined by [facility], Department of Laboratory Medicine. It has not [...] be interpreted with caution. 05/18/2024 10:44 AM [facility] Embedded Images 05/18/2024 10:44 AM [facility] Pathology/Cytolo gy DEBRIDEMENT OF BONE / Unknown 05/15/2024 4:29 PM CAR HIKER 05/16/2024 8:[address] [facility] Marcos Quinn DPM LAB - PATHOLOGY/CYTO LOGY ORDERABLES [facility] [address] [place] [address] * (ABNORMAL) HEMOGLOBIN A1C (05/15/2024 12:13 AM CAR HIKER) Pathologist [facility] Hemoglobin A1c 6.6(H) <5.7 % 05/15/2024 12:56 AM [facility] Estimated Average Glucose 143 mg/dL 05/15/2024 12:56 AM [facility] Blood BLOOD SPECIMEN / Unknown Lab Venipuncture / Unknown 05/15/2024 12:13 AM CAR [facility]IKER 05/15/2024 12:23 AM [facility] - 05/15/2024 12:[address] [facility] HbA1c Interpretation: Normal: < 5.7% Pre-diabetes: 5.7-6.4% [...] Tolentino MD LAB - CHEMISTRY MELIDA COLLINS [facility] Organization Address City/State/ZIP Co de Phone Number [facility] [address] [place] [address] * VANCOMYCIN LEVEL TROUGH (05/15/2024 12:[address] [facility]) [facility] Vancomycin Trough 18.2 10.0 - 20.0 ug/mL 05/15/2024 12:52 AM [facility] Blood BLOOD SPECIMEN / Unknown Lab Venipuncture / Unknown 05/15/2024 12:13 AM CAR [facility]ER 05/15/2024 12:23 AM CAR HIKER Hattie Liao MD LAB - CHEMISTRY ORDE DENNIS [facility] [address] [place] [address] * SODIUM URINE RANDOM (05/14/2024 5:31 PM CAR HIKER) Sodium Urine <20 mmol/L 05/14/2024 5:54 PM CAR HIKER [facility] Urine URINE SPECIMEN OBTAINED BY CLEAN CATCH PROCEDURE / Unknown Collection / Unknown 05/14/2024 5:31 PM CAR HIKER 05/14/2024 5:36 PM CAR HIKER Zana Tolentino MD LAB - URINE CHEMISTR Y ORDERABLES Performing Organization Address [facility] Co de Phone Number [facility] [address] [place] [phone] * US Retroperitoneal Complete (05/14/2024 2:17 PM CAR HIKER) Anatomical Region Laterality Modality Abdomen Ultrasound 05/14/2024 4:34 PM CAR HIKER Impressions 05/14/2024 4:35 PM CAR HIKER IMPRESSION: 1.Within normal limits. There is no evidence of hydronephrosis or medical renal disease. 2.The ureteral jets were not identified bilaterally during this study. > Interpreting Provider: Chintan Davey MD on 05/14/2024 4:35 PM Narrative 05/14/2024 4:35 PM CAR HIKER PROCEDURE: ??US RETROPERITONEAL COMPLETE DATE/TIME OF EXAM: [...] * EOSINOPHIL URINE SMEAR (05/14/2024 1:19 PM CAR HIKER) Eosinophils Urine NONE SEEN NONE SEEN 05/14/2024 2:59 PM CAR [facility]IKER [facility] Urine URINE SPECIMEN OBTAINED BY CLEAN CATCH PROCEDURE / Unknown Collection / Unknown 05/14/2024 1:19 PM CAR HIKER 05/14/2024 1:32 PM CAR HIKER Zana Tolentino MD LAB - URINE CHEMISTR Y ORDERABLES Performing Organization Address City/[facility]/ZIP Co de Phone Number [facility] [address] [place] [address] * CULTURE BLOOD (05/14/2024 9:25 AM CAR HIKER) Only the most recent of2 resultswithin the time period is included. Culture No growth day 5 JEFF 05/19/2024 1:[address] [facility] Blood PERIPHERAL BLOOD / Unknown Lab Venipuncture / Unknown 05/14/2024 9:25 AM CAR HIKER 05/14/2024 9:30 AM CAR HIKER Zana Tolentino MD LAB - MICROBIOLOGY O RDERABLES Performing Organization Address City/[facility] Co de Phone Number [facility] [address] [place], [place] [phone] [place] [address] * (ABNORMAL) B-TYPE NATRIURETIC PEPTIDE (05/14/2024 9:16 AM CAR HIKER) BNP 140(H) <=100 pg/mL 05/14/2024 10:10 AM CAR HIKER [facility] Blood BLOOD SPECIMEN / Unknown Lab Venipuncture / Unknown 05/14/2024 9:16 AM CAR HIKER 05/14/2024 9:30 AM CAR HIKER Narrative [facility] - 05/14/2024 10:10 AM CAR HIKER A cutoff of 100 pg/mL has been [...] - CHEMISTRY MELIDA COLLINS Performing Organization Address [facility] Co de Phone Number [facility] [address] [place] [phone] * LACTIC ACID BLOOD (05/14/2024 9:16 AM CAR HIKER) Lactic Acid 1.0 <=2.0 mmol/L 05/14/2024 9:54 AM CAR HIKER [facility] Blood BLOOD SPECIMEN / Unknown Lab Venipuncture / Unknown 05/14/2024 9:16 AM CAR HIKER 05/14/2024 9:30 AM CAR HIKER Zana Tolentino MD LAB - CHEMISTRY MELIDA COLLINS Performing Organization Address [facility] de Phone Number [facility] [address] [place] [phone] * FOLATE (05/14/2024 9:16 AM CAR HIKER) Folate 8.5 7.0 - 31.4 ng/mL 05/14/2024 10:27 AM CAR HIKER [facility] Blood BLOOD SPECIMEN / Unknown Lab Venipuncture / Unknown 05/14/2024 9:16 AM CAR HIKER 05/14/2024 9:30 AM CAR HIKER Zana Tolentino MD LAB - CHEMISTRY MELIDA COLLINS Performing Organization Address [facility] de Phone Number [facility] [address] [place] [phone] * (ABNORMAL) VITAMIN B12 (05/14/2024 9:16 AM CAR HIKER) Vitamin B12 >2,000(H) 213 - 816 pg/mL 05/14/2024 10:27 AM CAR HIKER [facility] Blood BLOOD SPECIMEN / Unknown Lab Venipuncture / Unknown 05/14/2024 9:16 AM CAR HIKER 05/14/2024 9:30 AM CAR HIKER Zana Tolentino MD LAB - CHEMISTRY MELIDA COLLINS Performing Organization Address [facility]/ZIP Co de Phone Number [facility] [address] [place] [phone] * (ABNORMAL) RETIC COUNT (05/14/2024 4:03 AM CAR HIKER) [facility] Reticulocyte Percent 1.38 0.50 - 2.40 % 05/14/2024 9:13 AM CAR HIKER [facility] Reticulocyte Absolute 0.0384 0.0200 - 0.1100 x10E6/uL 05/14/2024 9:13 AM CAR HIKER [facility] Ret-HE 23.6(L) 29.0 - 37.9 pg 05/14/2024 9:13 AM CAR HIKER [facility] Immature Reticulocyte Fraction 18.2(H) 1.8 - 15.2 % 05/14/2024 9:13 AM CAR HIKER [facility] Blood BLOOD SPECIMEN / Unknown Lab Venipuncture / Unknown 05/14/2024 4:03 AM CAR HIKER 05/14/2024 4:13 AM CAR HIKER Zana Tolentino MD LAB - HEMATOLOGY ORD ERATORREY Performing Organization Address [facility]/ZIP Co de Phone Number [facility] [address] [place] [address] * CK BLOOD (05/14/2024 4:03 AM CAR HIKER) [facility] CK 136 30 - 200 U/L 05/14/2024 9:34 AM CAR HIKER [facility] Blood BLOOD SPECIMEN / Unknown Lab Venipuncture / Unknown 05/14/2024 4:03 AM CAR HIKER 05/14/2024 4:13 AM CAR HIKER Zana Tolentino MD LAB - CHEMISTRY MELIDA COLLINS Performing Organization Address City/[facility]/ZIP Co de Phone Number [facility] [address] [place] [phone] * VANCOMYCIN LEVEL RANDOM (05/14/2024 4:03 AM CAR HIKER) [facility] Vancomycin Random 14.5 <=40.0 ug/mL 05/14/2024 9:34 AM CAR HIKER [facility] Blood BLOOD SPECIMEN / Unknown Lab Venipuncture / Unknown 05/14/2024 4:03 AM CAR HIKER 05/14/2024 4:13 AM CAR HIKER Narrative [facility] - 05/14/2024 9:34 AM CAR HIKER No reference range available for random Vancomycin levels. All results interpreted by ordering physician. Zana Tolentino MD LAB - CHEMISTRY MELIDA COLLINS Performing Organization Address [facility] Co de Phone Number [facility] [address] [place] [phone] * (ABNORMAL) IRON + TRANSFERRIN PANEL (05/14/2024 4:03 AM CAR HIKER) Iron 11(L) 50 - 175 ug/dL 05/14/2024 9:34 AM CAR HIKER [facility] Transferrin 100(L) 174 - 382 mg/dL 05/14/2024 9:34 AM [facility] TIBC Calculated 125(L) 240 - 450 ug/dL 05/14/2024 9:34 AM [facility] Iron Saturation % 9(L) 20 - 50 % 05/14/2024 9:34 AM [facility] Blood BLOOD SPECIMEN / Unknown Lab Venipuncture / Unknown 05/14/2024 4:03 AM CAR HIKER 05/14/2024 4:13 AM CAR HIKER Zana Tolentino MD LAB - CHEMISTRY MELIDA COLLINS Performing Organization Address City/[facility]/ZIP Co de Phone Number [facility] [address] [place] [phone] * (ABNORMAL) FERRITIN (05/14/2024 4:03 AM CAR HIKER) Ferritin 1,357(H) 22 - 275 ng/mL 05/14/2024 10:16 AM [facility] Blood BLOOD SPECIMEN / Unknown Lab Venipuncture / Unknown 05/14/2024 4:03 AM CAR HIKER 05/14/2024 4:13 AM CAR HIKER Zana Tolentino MD LAB - CHEMISTRY MELIDA COLLINS [facility] [address] [place] [address] * HEPATITIS C ANTIBODY (09/17/2023 12:47 PM CDT) Hepatitis C Antibody Non-react micah Non-reac tive 09/17/2023 2:10 PM CDT [facility] Comment:Hepatitis C Antibody screen indicates [...] Ferny Carreon MD LAB - CHEMISTRY ORDERABLES [facility] [address] [place] [address], [facility] [phone] from Last 3 Months or Most Recently Relevant to Health Maintenance Advance Directives * Full Code (Latest Code Status on File) Date Activated Date Inactivated Comments 05/22/2024 7:44 PM 05/26/2024 2:05 PM * Full Code Date Activated Date Inactivated Comments 05/15/2024 7:22 PM 05/22/2024 7:44 PM Care Teams Inspector Plug Seam Relationship Specialty Start Date End Date Nguyễn Bingham MD [address] [id number] PCP - General Family Medicine 07/03/23
--- OUTSIDE RECORDS SUMMARY | 2024-06-07 23:59 | XMS_ITS | Patient Health Summary ---
Author Organization [facility] Address [address] [place] [address] Care Team Providers Care Continuous Pillowcase Cutter Name Role Phone Nguyễn Bingham MD Primary Care Provider [phone] Note from [facility],non-owned Affiliates and Associated Physician Practices is amultiple site organization consisting of ambulatory clinics and hospital sitesin [place], [place] and [place]. This disclosure is being madepursuant to the Care Everywhere program and may not contain all information available regarding this patient. Last updated 18.[facility] Allergies No known active allergies Medications * Be aware that medications may not be up to date on this document. Always verify current medications with the patient. * ferrous sulfate 325 (65 FE) MG tablet(Started 06/02/2023) Take 1 (one) tablet by mouth daily with breakfast * insulin lispro (HumaLOG;ADMelog) 100 UNIT/ML pen(Started 06/17/2023) Inject 10 (ten) Units subcutaneously 3 times daily before meals * acetaminophen (Tylenol) 500 MG tablet Take 1 (one) tablet by mouth every 6 hours as needed * Alcohol Swabs (Alcohol Prep) PADS(Started 04/16/2023) * Lantus SoloStar pen(Started 05/22/2023) Inject 20 (twenty) Units subcutaneously at bedtime * Lancets (ONETOUCH DELICA PLUS 33G EXTRA FINE LANCET)(Started 04/14/2023) * TRUEplus Pen [place] 31G X 5 MM needle(Started 06/19/2023) * pantoprazole EC (Protonix) 40 MG tablet(Started 07/02/2023) * tamsulosin (Flomax) 0.4 MG capsule(Started 07/16/2023) Take 1 (one) capsule by mouth once daily At the same time every day after a meal. 4 refills by 07/15/2024 * gabapentin (Neurontin) 300 MG capsule(Started 10/12/2023) Take 1 (one) capsule by mouth 3 times daily 3 refills by 10/11/2024 * Nutritional Supplement LIQD(Started 05/16/2024) Take 1 packet by mouth 2 times daily for 28 days Pt encouraged to continue with Doyle BID for 28 days post discharge to optimize healing. Doyle can be purchased at [facility] located across from [facility] ([address] [place] [address]) for a reduced cost. upholstery mechanic is encouraged to prevent delivery fees, but if this isn't feasible it can be delivered to the home by calling [phone]. * buPROPion SR 12hr (Wellbutrin-SR) 150 MG tablet Take 1 (one) tablet by mouth 2 times daily * vitamin D, ergocalciferol, (Drisdol) 1.25 MG (58486 UT) capsule Take 1 (one) capsule by mouth every 7 days Takes on thursday * metFORMIN (Glucophage) 500 MG tablet Take 1 (one) tablet by mouth 2 times daily with morning and evening meal * tirzepatide (Mounjaro) 5 MG/0.5ML injection Inject 5 (five) mg subcutaneously every 7 days * atorvastatin (Lipitor) 40 MG tablet(Started 05/26/2024) Take 1 (one) tablet by mouth at bedtime * cefTRIAXone 2 g 2,000 mg in 0.9% NaCl IV 0.9 % 50 mL(Started 05/26/2024) 2,000 (two thousand) mg by Intravenous route every 24 hours for 30 days Last dose 06/25/2024 * polyethylene glycol 3350 (Miralax) 17 g packet(Started 05/27/2024) Take 17 (seventeen) g by mouth once daily * metroNIDAZOLE (Flagyl) 500 MG tablet(Started 05/26/2024) Take 1 (one) tablet by mouth every 8 hours for 30 days Last dose 06/25/2024 * chlorhexidine (Peridex) 0.12 % solution(Started 05/26/2024) 15 mL by Mouth/Throat route 2 times daily * artificial tears ophthalmic ointment(Started 05/26/2024) Instill into both eyes every 8 hours * cyclobenzaprine (Flexeril) 5 MG tablet(Started 05/26/2024) Take 1 (one) tablet by mouth 3 times daily as needed Ended Medications* atorvastatin (Lipitor) 20 MG tablet(Started 07/02/2023) (Discontinued) Take 1 (one) tablet by mouth at bedtime * Trulicity 1.5 MG/0.5ML injection(Started 07/01/2023)(Discontinued) * vitamin D, ergocalciferol, (Drisdol) 1.25 MG (07808 UT) capsule(Started 06/17/2023)(Discontinued) * oyster shell calcium 500 MG tablet(Started 05/20/2023)(Discontinued) * cephalexin (Keflex) 500 MG capsule(Started 04/27/2023)(Discontinued) * losartan (Cozaar) 25 MG tablet(Started 07/21/2023)(Discontinued) Take 1 (one) tablet by mouth once daily * calcium carbonate (Os-Wilfredo 500) 1250 (500 Ca) MG tablet(Discontinued) Take 1 (one) tablet by mouth once daily * famotidine (Pepcid) 40 MG tablet(Started 09/02/2023)(Discontinued) Take 1 (one) tablet by mouth at bedtime * furosemide (Lasix) 20 MG tablet(Discontinued) Take 1 (one) tablet by mouth once daily * metFORMIN (Glucophage) 1000 MG tablet(Discontinued) Take 0.5 (one-half) tablet by mouth 2 times daily * buPROPion XL 24hr (Wellbutrin-XL) 150 MG tablet(Started 10/01/2023) (Discontinued) Take 1 (one) tablet by mouth once daily 4 refills by 09/30/2024 * Cholecalciferol 1.25 MG (54640 UT)(Started 04/01/2023)(Discontinued) Take 50,000 Units by mouth Two times a week * amLODIPine (Norvasc) 5 MG tablet(Discontinued) Take 1 (one) tablet by mouth once daily Active Problems Problem Noted Date Diagnosed Date Controlled type 2 diabetes lincoln koehler, with long-term current use of insulin 05/24/2024 Acute osteomyelitis 05/19/2024 RENALDO (acute kidney injury) 05/19/2024 Ulcer of left foot with other severity Class 3 obesity 03/16/2023 07/16/2023 Hypertension 03/16/2023 07/16/2023 Anemia 03/10/2023 07/16/2023 Diabetic foot ulcer 03/10/2023 07/16/2023 T1DM (type 1 diabetes mellitus) 03/10/2023 07/16/2023 Vitamin D deficiency 03/10/2023 07/16/2023 Resolved Problems Problem Noted Date Diagnosed Date Resolved Date Sepsis 05/19/2024 05/24/2024 Hyperkalemia 05/19/2024 05/24/2024 Hyperglycemia 05/19/2024 05/24/2024 Immunizations * INFLUENZA VACCINE, QUADR. (FLUZONE; FLULAVAL; FLUARIX; AFLURIA QUADRIVALENT; 6MO+), 0.5 ML (IIV4)(Given 03/11/2023) * INFLUENZA VACCINE, TRIV. (FLUZONE; FLULAVAL; FLUARIX; AFLURIA TRIVALENT; 6MO+), 0.5 ML (IIV3)(Given 05/18/2024) Social History Tobacco Use Types Packs/Day Years [...] Recorded Patient Health Questionnaire-2 Score 1 10/01/2023 [facility] of Occupat ional Health - Occupational Stress [...] were you homeless or living in a assisted (including now)? No 05/13/2024 Sex and Gender Information Value Date Recorded Sex Assigned at Not on file Gender Identity Not on file Sexual Orientation Not on file Last Filed Vital Signs Vital Sign Reading Time Taken Comments Blood Pressure 115/73 05/26/2024 11:49 AM [facility] Pulse 94 05/26/2024 11:49 AM [facility] Temperature 36.9 ??C (98.4 ??F) 05/26/2024 1 1:49 AM [facility] Respiratory Rate 23 05/26/2024 4:01 AM [facility] Oxygen Saturation 95% 05/26/2024 11: 49 AM [facility] Inhaled Oxygen Concentration 21% 02/2024 11:13 PM [facility] Weight 183.9 kg (405 lb 6.4 oz) 024 10:13 PM [facility] Height 200.7 cm (6' 7 ) 05/13/2024 10:1 3 PM [facility] Body Mass Index 45.67 05/13/2024 10:13 PM [facility] Medical Devices Implanted Type Area Entry Level Machine Operator Device Identifier Shelf Expiration Date Model / Serial / Lot Amino [place] Plus Placental Allograft Membrane Implanted:Qty: 1 on 05/20/2024 by Marcos Quinn DPM at [facility] Left: Foot [employer] 01/08/2029 [id number] / / [id number] Description:DIV 013 Cytal Wound Matrix 2-Layer Implanted:Qty: 1 on 05/20/2024 by Marcos Quinn DPM at [facility] Left: Foot [employer] 02/05/2025 [id number] / / [id number] Amino [place] Plus Placental Allograft Membrane Implanted:Qty: 1 on 05/20/2024 by Marcos Quinn DPM at [facility] Left: Foot [employer] [place] 01/08/2029 [id number] / / [id number] Amino [place] Plus Placental Allograft Membrane Implanted:Qty: 1 on 05/20/2024 by Marcos Quinn, DPM at [facility] Left: Foot [employer] [place] [id number] / / [id number] Description:div 12 Amino [place] Plus Placental Allograft Membrane Implanted:Qty: 1 on 05/20/2024 by Marcos Quinn DPM at [facility] Left: Foot [employer] 11/24/2028 [id number] / / [id number] Amino [place] Plus Placental Allograft Implanted:Qty: 1 on 05/20/2024 by Marcos Quinn, DPM at [facility] Left: Foot [employer] 01/08/2029 [id number] / / [id number] Description:div 011 Procedures * CARDIAC RHYTHM STRIP ORDER(Performed 05/27/2024) * GLUCOSE - POINT OF CARE(Performed 05/26/2024) * GLUCOSE - POINT OF CARE(Performed 05/26/2024) * GLUCOSE - POINT OF CARE(Performed 05/25/2024) * GLUCOSE - POINT OF CARE(Performed 05/25/2024) * GLUCOSE - POINT OF CARE(Performed 05/25/2024) * GLUCOSE - POINT OF CARE(Performed 05/25/2024) * GLUCOSE - POINT OF CARE(Performed 05/24/2024) * GLUCOSE - POINT OF CARE(Performed 05/24/2024) * GLUCOSE - POINT OF CARE(Performed 05/24/2024) * GLUCOSE - POINT OF CARE(Performed 05/24/2024) * RENAL FUNCTION PANEL(Performed 05/24/2024) * GLUCOSE - POINT OF CARE(Performed 05/23/2024) * GLUCOSE - POINT OF CARE(Performed 05/23/2024) * GLUCOSE - POINT OF CARE(Performed 05/23/2024) * GLUCOSE - POINT OF CARE(Performed 05/23/2024) * RENAL FUNCTION PANEL(Performed 05/23/2024) * GLUCOSE - POINT OF CARE(Performed 05/22/2024) * GLUCOSE - POINT OF CARE(Performed 05/22/2024) * GLUCOSE - POINT OF CARE(Performed 05/22/2024) * GLUCOSE - POINT OF CARE(Performed 05/22/2024) * RENAL FUNCTION PANEL(Performed 05/22/2024) * GLUCOSE - POINT OF CARE(Performed 05/21/2024) * GLUCOSE - POINT OF CARE(Performed 05/21/2024) * GLUCOSE - POINT OF CARE(Performed 05/21/2024) * GLUCOSE - POINT OF CARE(Performed 05/21/2024) * RENAL FUNCTION PANEL(Performed 05/21/2024) * GLUCOSE - POINT OF CARE(Performed 05/20/2024) * GLUCOSE - POINT OF CARE(Performed 05/20/2024) * GLUCOSE - POINT OF CARE(Performed 05/20/2024) * CULTURE FUNGUS OTHER+FUNGUS SMEAR(Performed 05/20/2024) Performed for Diagnosis unknown * CULTURE WOUND+GRAM STAIN(Performed 05/20/2024) Performed for Diagnosis unknown * CULTURE ANAEROBE(Performed 05/20/2024) Performed for Diagnosis unknown * MN SANTI MUSC/FASCIA 20 SQ CM/<(Performed 05/20/2024) Performed for Diagnosis unknown * GLUCOSE - POINT OF CARE(Performed 05/20/2024) * RENAL FUNCTION PANEL(Performed 05/20/2024) * GLUCOSE - POINT OF CARE(Performed 05/19/2024) * GLUCOSE - POINT OF CARE(Performed 05/19/2024) * GLUCOSE - POINT OF CARE(Performed 05/19/2024) * GLUCOSE - POINT OF CARE(Performed 05/19/2024) * GLUCOSE - POINT OF CARE(Performed 05/19/2024) * RENAL FUNCTION PANEL(Performed 05/19/2024) * GLUCOSE - POINT OF CARE(Performed 05/18/2024) * GLUCOSE - POINT OF CARE(Performed 05/18/2024) * GLUCOSE - POINT OF CARE(Performed 05/18/2024) * GLUCOSE - POINT OF CARE(Performed 05/18/2024) * GLUCOSE - POINT OF CARE(Performed 05/18/2024) * RENAL FUNCTION PANEL(Performed 05/18/2024) * CBC W/O DIFFERENTIAL(Performed 05/18/2024) * GLUCOSE - POINT OF CARE(Performed 05/17/2024) * GLUCOSE - POINT OF CARE(Performed 05/17/2024) * GLUCOSE - POINT OF CARE(Performed 05/17/2024) * PROTEIN CREATININE RATIO URINE RANDOM PNL(Performed 05/17/2024) * VAS ARTERIAL ANKLE ARM INDEX(Performed 05/17/2024) Performed for Ulcer of left foot with other severity (HCC) * GLUCOSE - POINT OF CARE(Performed 05/17/2024) * CBC W/O DIFFERENTIAL(Performed 05/17/2024) * GLUCOSE - POINT OF CARE(Performed 05/17/2024) * COMPLEMENT C4(Performed 05/17/2024) * COMPLEMENT C3(Performed 05/17/2024) * BASIC METABOLIC PANEL (CALCIUM TOTAL)(Performed 05/17/2024) * GLUCOSE - POINT OF CARE(Performed 05/16/2024) * GLUCOSE - POINT OF CARE(Performed 05/16/2024) * MRI FOOT LEFT WO CONTRAST(Performed 05/16/2024) Performed for Ulcer of left foot with other severity (HCC) * URINALYSIS REFLEX TO MICROSCOPIC NO CULTURE(Performed 05/16/2024) * GLUCOSE - POINT OF CARE(Performed 05/16/2024) * VANCOMYCIN LEVEL PEAK(Performed 05/16/2024) * GLUCOSE - POINT OF CARE(Performed 05/16/2024) * DIFFERENTIAL MANUAL(Performed 05/16/2024) * RENAL FUNCTION PANEL(Performed 05/16/2024) * CBC W AUTO DIFFERENTIAL(Performed 05/16/2024) * GLUCOSE - POINT OF CARE(Performed 05/15/2024) * GLUCOSE - POINT OF CARE(Performed 05/15/2024) * XR FOOT LEFT 2VW(Performed 05/15/2024) Performed for Left foot infection * GLUCOSE - POINT OF CARE(Performed 05/15/2024) * CULTURE FUNGUS OTHER+FUNGUS SMEAR(Performed 05/15/2024) Performed for Left foot infection * CULTURE TISSUE+GRAM STAIN(Performed 05/15/2024) Performed for Left foot infection * CULTURE ANAEROBE(Performed 05/15/2024) Performed for Left foot infection * CULTURE TISSUE+GRAM STAIN(Performed 05/15/2024) Performed for Left foot infection * CULTURE AFB+SMEAR(Performed 05/15/2024) Performed for Left foot infection * CULTURE ANAEROBE(Performed 05/15/2024) Performed for Left foot infection * PATHOLOGY TISSUE EXAM (STL)(Performed 05/15/2024) Performed for Left foot infection * MN SANTI SUBQ TISSUE 20 SQ CM/<(Performed 05/15/2024) * GLUCOSE - POINT OF CARE(Performed 05/15/2024) * GLUCOSE - POINT OF CARE(Performed 05/15/2024) * DIFFERENTIAL MANUAL(Performed 05/15/2024) * HEMOGLOBIN A1C(Performed 05/15/2024) * RENAL FUNCTION PANEL(Performed 05/15/2024) * CBC W AUTO DIFFERENTIAL(Performed 05/15/2024) * VANCOMYCIN LEVEL TROUGH(Performed 05/15/2024) * GLUCOSE - POINT OF CARE(Performed 05/14/2024) * PROTEIN CREATININE RATIO URINE RANDOM PNL(Performed 05/14/2024) * SODIUM URINE RANDOM(Performed 05/14/2024) * VANCOMYCIN LEVEL PEAK(Performed 05/14/2024) * GLUCOSE - POINT OF CARE(Performed 05/14/2024) * US RETROPERITONEAL COMPLETE(Performed 05/14/2024) Performed for RENALDO (acute kidney injury) (HCC) * EOSINOPHIL URINE SMEAR(Performed 05/14/2024) * CULTURE WOUND+GRAM STAIN(Performed 05/14/2024) * GLUCOSE - POINT OF CARE(Performed 05/14/2024) * CULTURE BLOOD(Performed 05/14/2024) * FOLATE(Performed 05/14/2024) * VITAMIN B12(Performed 05/14/2024) * LACTIC ACID BLOOD(Performed 05/14/2024) * B-TYPE NATRIURETIC PEPTIDE(Performed 05/14/2024) * CULTURE BLOOD(Performed 05/14/2024) * GLUCOSE - POINT OF CARE(Performed 05/14/2024) * VANCOMYCIN LEVEL RANDOM(Performed 05/14/2024) * CK BLOOD(Performed 05/14/2024) * RETIC COUNT(Performed 05/14/2024) * FERRITIN(Performed 05/14/2024) * IRON + TRANSFERRIN PANEL(Performed 05/14/2024) * DIFFERENTIAL MANUAL(Performed 05/14/2024) * RENAL FUNCTION PANEL(Performed 05/14/2024) * CBC W AUTO DIFFERENTIAL(Performed 05/14/2024) * GLUCOSE - POINT OF CARE(Performed 05/13/2024) * CBC W AUTO DIFFERENTIAL(Performed 05/13/2024) * BASIC METABOLIC PANEL (CALCIUM TOTAL)(Performed 05/13/2024) * MN MSR PVR U&/BLADD CAPCTY US NON(Performed 10/08/2023) Performed for Urinary frequency * URINALYSIS AUTO - POINT OF CARE (AMB) SLU(Performed 10/08/2023) Performed for Urinary frequency * PATHOLOGY/CYTOLOGY REPORT ORDER(Performed 10/08/2023) * MPO/MN 3 AUTOANTIBODIES PANEL(Performed 09/17/2023) Performed for Polyneuropathy associated with underlying disease (HCC) * SS-B (SJOGREN'S) ANTIBODY(Performed 09/17/2023) Performed for Polyneuropathy associated with underlying disease (HCC) * SS-A (SJOGREN'S) 52+60 ANTIBODIES(Performed 09/17/2023) Performed for Polyneuropathy associated with underlying disease (HCC) * RHEUMATOID FACTOR BLOOD QUANTITATIVE(Performed 09/17/2023) Performed for Polyneuropathy associated with underlying disease (HCC) * TSH REFLEX FREE T4(Performed 09/17/2023) Performed for Polyneuropathy associated with underlying disease (HCC) * COMPREHENSIVE METABOLIC PANEL(Performed 09/17/2023) Performed for Polyneuropathy associated with underlying disease (HCC) * VITAMIN B12(Performed 09/17/2023) Performed for Polyneuropathy associated with underlying disease (HCC) * HEMOGLOBIN A1C(Performed 09/17/2023) Performed for Polyneuropathy associated with underlying disease (HCC) * CBC W AUTO DIFFERENTIAL(Performed 09/17/2023) Performed for Polyneuropathy associated with underlying disease (HCC) * HEPATITIS C ANTIBODY(Performed 09/17/2023) Performed for Polyneuropathy associated with underlying disease (HCC) * PROTEIN ELECTROPHORESIS BLOOD(Performed 09/17/2023) Performed for Polyneuropathy associated with underlying disease (HCC) * CULTURE URINE(Performed 07/31/2023) * URINALYSIS AUTO - POINT OF CARE (AMB) SLU(Performed 07/16/2023) Performed for Benign prostatic hyperplasia with incomplete bladder emptying * MN MSR PVR U&/BLADD CAPCTY US NON(Performed 07/16/2023) Performed for Benign prostatic hyperplasia with incomplete bladder emptying * CULTURE URINE(Performed 07/16/2023) Results * CARDIAC RHYTHM STRIP ORDER (05/27/2024 5:02 PM [facility]) Narrative 05/27/2024 5:02 PM [facility] Ordered by an unspecified provider. Scanned Document CARDIAC SERVICES ORD ERABLES * (ABNORMAL) GLUCOSE - POINT OF CARE (05/26/2024 11:48 AM [facility]) Only the most recent of55 resultswithin the time period is included. Glucose WB/POC 127(H) 70 - 99 mg/dL 06/06/2024 7:01 AM [facility] Specimen Type Cap Fingerstick 2023 7:01 AM [facility] Blood BLOOD SPECIMEN / Unknown 05/26/2024 11:48 AM [facility] 06/06/2024 7:01 AM [facility] Tereaz Mcpherson MD LAB - POINT OF CARE ORDERABLES [facility] [address] [place], [place] [id number] * (ABNORMAL) RENAL FUNCTION PANEL (05/24/2024 5:08 AM [facility]) Only the most recent of10 resultswithin the time period is included. Glucose 123(H) 70 - 99 mg/dL 05/24/2024 5:56 AM [facility] Sodium 140 136 - 145 mmol/L 05/24/2024 5:56 AM [facility] Potassium 4.3 3.5 - 5.1 mmol/L 05/24/2024 5:56 AM [facility] Chloride 111(H) 98 - 107 mmol/L 05/24/2024 5:56 AM [facility] CO2 23 22 - 29 mmol/L 05/24/2024 5:56 AM [facility] Calcium 8.9 8.4 - 10.4 mg/dL 05/24/2024 5:[address] [facility] Anion Gap 6 6 - 16 mmol/L 05/24/2024 5:[address] [facility] BUN 26(H) 5.3 - 18.7 mg/dL 05/24/2024 5:[address] [facility] Creatinine 1.33(H) 0.72 - 1.25 mg/dL 05/24/2024 5:[address] [facility] Albumin 2.0(L) 3.4 - 5.0 gm/dL 05/24/2024 5:56 AM [facility] Phosphorus 4.2 2.5 - 4.5 mg/dL 05/24/2024 5:[address] [facility] eGFR by CKD-EPI 68(L) >=90 mL/min/1.7 3 m2 05/24/2024 5:56 AM [facility] Blood BLOOD SPECIMEN / Unknown Lab Venipuncture / Unknown 05/24/2024 5:08 AM [facility] 05/24/2024 5:22 AM [facility] Manpreet Stuart MD LAB - CHEMISTRY FOLLY BEACHSami [facility] Organization Address City/State/[facility] Co de Phone Number [facility] [address] [place] [address] * CULTURE WOUND+GRAM STAIN (05/20/2024 2:58 PM [facility]) Only the most recent of2 resultswithin the time period is included. Culture Rare normal skin jero JEFF 05/22/2024 9:21 PM [facility] Gram Stain Moderate Polymorphonuclear cells 05/22/2024 9:21 PM [facility] Gram Stain No organisms seen 024 9:21 PM [facility] Microbiology ENTIRE FOOT / Unknown 05/20/2024 2:58 PM [facility] 05/20/2024 3:58 PM [facility] Comment:Pre-op diagnosis: Diagnosis unknown [R69] Narrative [facility] - 05/22/2024 9:21 PM [facility] Surgical Description: Left Foot Wound Culture Mracos Quinn [facility] - MICROBIOLOGY O RDERABLES Performing Organization Address [facility] de Phone Number [facility] [address] [facility] [place] [address], [facility] [phone] * CULTURE ANAEROBE (05/20/2024 2:58 PM [facility]) Only the most recent of3 resultswithin the time period is included. Culture No anaerobic organisms isolated JEFF 05/25/2024 3:37 PM [facility] Microbiology ENTIRE FOOT / Unknown 05/20/2024 2:58 PM [facility] 05/20/2024 3:58 PM [facility] Comment:Pre-op diagnosis: Diagnosis unknown [R69] Narrative [facility] - 05/25/2024 3:37 PM [facility] Surgical Description: Left Foot Wound Culture Marcos Quinn [facility] - MICROBIOLOGY O RDERABLES Performing Organization Address [facility] de Phone Number [facility] [address] [facility] [place] [address], [facility] [phone] * (ABNORMAL) CBC W/O DIFFERENTIAL (05/18/2024 3:38 AM [facility]) Only the most recent of2 resultswithin the time period is included. WBC 14.5(H) 4.0 - 10.7 x10E9/L 05/18/2024 4:40 AM [facility] RBC Count 2.76(L) 4.30 - 5.80 x10E12/L 05/18/2024 4:40 AM [facility] Hemoglobin 7.7(L) 13.3 - 17.5 g/dL 05/18/2024 4:40 AM [facility] Hematocrit 24.7(L) 38.7 - 51.1 % 05/18/2024 4:40 AM [facility] MCV 89.5 80.0 - 98.0 fL 05/18/2024 4:40 AM [facility] MCH 27.9 26.7 - 33.6 pg 05/18/2024 4:40 AM [facility] MCHC 31.2(L) 31.7 - 36.3 g/dL 05/18/2024 4:[address] [facility] RDW-CV 13.8 11.3 - 14.8 % 05/18/2024 4:[address] [facility] Platelet Count 330 150 - 420 x10E9/L 05/18/2024 4:40 AM [facility] MPV 8.6 7.8 - 11.4 fL 05/18/2024 4:[address] [facility] Blood BLOOD SPECIMEN / Unknown Lab Venipuncture / Unknown 05/18/2024 3:38 AM [facility] 05/18/2024 4:20 AM [facility] Manpreet Stuart MD LAB - HEMATOLOGY ORD ERABLES [facility] [address] [place] [id number] * (ABNORMAL) PROTEIN CREATININE RATIO URINE RANDOM PNL (05/17/2024 1:14 PM [facility]) Only the most recent of2 resultswithin the time period is included. Protein Urine 54.6(H) <11.9 mg/dL 05/17/2024 1:53 PM [facility] Creatinine Urine 77.41 mg/dL 05/17/2024 1:53 PM [facility] Protein/Creatin ine Ratio Urine 0.71 05/17/2024 1:53 PM [facility] Urine URINE SPECIMEN OBTAINED BY CLEAN CATCH PROCEDURE / Unknown Collection / Unknown 05/17/2024 1:14 PM [facility] 05/17/2024 1:31 PM [facility] Katerina Weaver DO LAB - URINE CHEMISTR Y ORDERABLES [facility] [address] [place] [id number] * VAS Arterial Ankle Arm Index (05/17/2024 12:04 PM [facility]) Anatomical Region Laterality Modality Ankle / Foot, Upper Extremity Ul trasound 05/17/2024 11:1 9 AM [facility] Narrative Procedure Note Gerry Villalobos MD - 05/17/2024 [place] [phone] Lower Extremity Arterial Doppler Report Pat.Name: RENE HYATT Pat.ID: [id number] St.Date: 05/17/2024 Exam Time: 11:19:00 AM Study Type:MOSES/PVR Age: 11 1980,43Y Sex: MALE Sonogrphr: Marina Calderón RVT, [facility] Pat. Stat.:Inpatient Reason for Study: Left foot wound for months, little improvement History / Clinical: Hypertension, Diabetes, Morbid obesity Procedures: Ankle Arm Index Visit ID: [id number] ++++++++++++++++++++++++++++++++++++ SUMMARY: ++++++++++++++++++++++++++++++++++++ No evidence for significant arterial insufficiency of either the right or left lower extremity at rest. Bilateral digital tracings are pulsatile. IGerry MD, VI, Vascular & Interventional radiologist, reviewed [...] LES * COMPLEMENT C4 (05/17/2024 5:00 AM [facility]) Pathologist [facility] Complement C4 19 15 - 57 mg/dL 05/17/2024 10:52 AM [facility] Blood BLOOD SPECIMEN / Unknown Lab Venipuncture / Unknown 05/17/2024 5:00 AM [facility] 05/17/2024 5:57 AM [facility] Katerina Weaver DO LAB - SEROLOGY ORDER MARA [address] [id number], [facility] [phone] * (ABNORMAL) BASIC METABOLIC PANEL (CALCIUM TOTAL) (05/17/2024 5:00 AM [facility]) Only the most recent of2 resultswithin the time period is included. Glucose 207(H) 70 - 99 mg/dL 05/17/2024 6:26 AM [facility] Sodium 135(L) 136 - 145 mmol/L 05/17/2024 6:26 AM [facility] Potassium 4.2 3.5 - 5.1 mmol/L 05/17/2024 6:26 AM [facility] Chloride 107 98 - 107 mmol/L 05/17/2024 6:[address] [facility] CO2 20(L) 22 - 29 mmol/L 05/17/2024 6:[address] [facility] Calcium 7.9(L) 8.4 - 10.4 mg/dL 05/17/2024 6:[address] [facility] Anion Gap 8 6 - 16 mmol/L 05/17/2024 6:[address] [facility] BUN 37(H) 5.3 - 18.7 mg/dL 05/17/2024 6:[address] [facility] Creatinine 1.83(H) 0.72 - 1.25 mg/dL 05/17/2024 6:[address] [facility] eGFR by CKD-EPI 46(L) >=90 mL/min/1.7 3 m2 05/17/2024 6:[address] [facility] Blood BLOOD SPECIMEN / Unknown Lab Venipuncture / Unknown 05/17/2024 5:00 AM [facility] 05/17/2024 5:57 AM [facility] Katerina Weaver LAB - CHEMISTRY [facility] Performing Organization Address City/[facility]/ZIP Co de Phone Number [facility] [address] [place] [address] * COMPLEMENT C3 (05/17/2024 5:00 AM [facility]) Pathologist [facility] Complement C3 100 82 - 193 mg/dL 05/17/2024 10:52 AM [facility] Blood BLOOD SPECIMEN / Unknown Lab Venipuncture / Unknown 05/17/2024 5:00 AM [facility] 05/17/2024 5:57 AM [facility] Katerina Weaver LAB - CHEMISTRY [employer] [address] [id number] [phone] * MRI Foot Left Wo Contrast (05/16/2024 5:20 PM [facility]) Anatomical Region Laterality Modality Ankle / Foot Magnetic Resonan ce 05/17/2024 8:48 AM [facility] Impressions 05/17/2024 9:04 AM [facility] IMPRESSION: 1. ??Large soft tissue wound//debridement surrounding the calcaneus and extending to bone. 2. ??There is mild osteomyelitis in the lateral calcaneal tubercle. ??However most of the calcaneal marrow changes are likely reactive. 3. ??No visible abscess. 4. ??Detached peroneal tendons. 5. ??Other findings as described > Interpreting Provider: Gila Licea MD on 05/17/2024 9:04 AM Narrative 05/17/2024 9:04 AM [facility] PROCEDURE: ??MRI FOOT LEFT WO CONTRAST DATE/TIME [...] TO MICROSCOPIC NO CULTURE (05/16/2024 12:57 PM [facility]) Color UA Yellow Yellow, Straw 05/16/2024 1:17 PM [facility] Clarity UA Turbid(A) Clear 05/16/2024 1:17 PM [facility] Glucose UA Normal Normal 05/16/2024 1:17 PM [facility] Bilirubin UA Negative Negative 05/16/2024 1:17 PM [facility] Ketone UA Trace(A) Negative 05/16/2024 1:17 PM [facility] Specific [place] UA 1.016 1.005 - 1.030 05/16/2024 1:17 PM [facility] Blood UA 2+(A) Negative 05/16/2024 1:17 PM [facility] pH UA 5.5 5.0 - 9.0 pH 05/16/2024 1:17 PM [facility] Protein UA 1+(A) Negative 05/16/2024 1:17 PM [facility] Urobilinogen UA Normal Normal mg/dL 05/16/2024 1:17 PM [facility] Nitrite UA Negative Negative 05/16/2024 1:17 PM [facility] Leukocyte UA 75 MIKKI/uL(A) Negative 05/16/2024 1:17 PM [facility] RBC UA None Seen 0 - 5 # /hpf 05/16/2024 1:17 PM [facility] WBC UA 6-10(A) 0 - 5 # /hpf 05/16/2024 1:17 PM [facility] Bacteria UA None Seen None Seen 05/16/2024 1:17 PM [facility] Squamous Epithelial Cells 0-2 0 - 5 /hpf 05/16/2024 1:17 PM [facility] Budding Yeast Few(A) None seen /hpf 05/16/2024 1:17 PM [facility] Urine URINE SPECIMEN OBTAINED BY CLEAN CATCH PROCEDURE / Unknown Collection / Unknown 05/16/2024 12:57 PM [facility] 05/16/2024 1:04 PM [facility] Narrative [facility] - 05/16/2024 1:17 PM [facility] Katerina Weaver DO LAB - URINALYSIS ORD ERABLES [facility] [address] [place], [place] [phone] * (ABNORMAL) VANCOMYCIN LEVEL PEAK (05/16/2024 9:04 AM [facility]) Only the most recent of2 resultswithin the time period is included. Vancomycin Peak 40.3(H) 25.0 - 40.0 ug/mL 05/16/2024 9:26 AM [facility] Blood BLOOD SPECIMEN / Unknown Lab Venipuncture / Unknown 05/16/2024 9:04 AM [facility] 05/16/2024 9:06 AM [facility] Hattie Liao MD LAB - CHEMISTRY ORDE DENNIS [facility] [address] [place], [place] [phone] * (ABNORMAL) DIFFERENTIAL MANUAL (05/16/2024 3:09 AM [facility]) Only the most recent of3 resultswithin the time period is included. Neutrophil % 88(H) 41 - 74 % 05/16/2024 4:[address] [facility] Lymphocyte % 7(L) 17 - 47 % 05/16/2024 4:[address] [facility] Monocyte % 4 3 - 11 % 05/16/2024 4:[address] [facility] Myelocyte % 1(H) 0% % 05/16/2024 4:[address] [facility] Neutrophil Absolute 19.10(H) 1.60 - 7.50 x10E9/L 05/16/2024 4:[address] [facility] Lymphocyte Absolute 1.52 1.00 - 4.40 x10E9/L 05/16/2024 4:[address] [facility] Monocyte Absolute 0.87 0.15 - 1.00 x10E9/L 05/16/2024 4:[address] [facility] RBC Morphology NORMAL 05/16/2024 4:[address] [facility] Platelet Morphology NORMAL 05/16/2024 4:[address] [facility] Blood BLOOD SPECIMEN / Unknown Lab Venipuncture / Unknown 05/16/2024 3:09 AM [facility] 05/16/2024 4:09 AM [facility] Nicanor Richter MD LAB - HEMATOLOGY ORDERABLES [facility] [address] [place] [address] * (ABNORMAL) CBC W AUTO DIFFERENTIAL (05/16/2024 3:09 AM [facility]) Only the most recent of5 resultswithin the time period is included. WBC 21.7(H) 4.0 - 10.7 x10E9/L 05/16/2024 4:[address] [facility] RBC Count 2.62(L) 4.30 - 5.80 x10E12/L 05/16/2024 4:[address] [facility] Hemoglobin 7.3(L) 13.3 - 17.5 g/dL 05/16/2024 4:[address] [facility] Hematocrit 23.6(L) 38.7 - 51.1 % 05/16/2024 4:[address] [facility] MCV 90.1 80.0 - 98.0 fL 05/16/2024 4:[address] [facility] MCH 27.9 26.7 - 33.6 pg 05/16/2024 4:[address] [facility] MCHC 30.9(L) 31.7 - 36.3 g/dL 05/16/2024 4:[address] [facility] RDW-CV 13.9 11.3 - 14.8 % 05/16/2024 4:[address] [facility] Platelet Count 300 150 - 420 x10E9/L 05/16/2024 4:[address] [facility] MPV 9.3 7.8 - 11.4 fL 05/16/2024 4:[address] [facility] Blood BLOOD SPECIMEN / Unknown Lab Venipuncture / Unknown 05/16/2024 3:09 AM [facility] 05/16/2024 4:09 AM [facility] Nicanor Richter MD LAB - HEMATOLOGY ORDERABLES [facility] [address] [place] [address] * XR Foot Left 2Vw (05/15/2024 5:31 PM [facility]) Anatomical Region Laterality Modality Ankle / Foot Radiographic Haylee ging 05/16/2024 7:16 AM [facility] Impressions 05/16/2024 9:15 AM [facility] IMPRESSION: Ulceration versus surgical debridement of the posterior plantar soft tissue of the foot and calcaneus. Report drafted by Ketan Meier MD (resident physician in radiology) Gila Garcia MD have personally reviewed and interpreted this examination/study. > Interpreting Provider: Gila Licea MD on 05/16/2024 9:15 AM Narrative 05/16/2024 9:15 AM [facility] EXAMINATION: XR FOOT LEFT 2VW HISTORY: L08.9: [...] Report drafted by Ketan Meier MD (resident physician in radiology) Gila Garcia MD have personally reviewed and interpreted this examination/study. > Interpreting Provider: Gila Licea MD on 05/16/2024 9:15 AM Marcos Quinn DPM DIAGNOSTIC IMAGING O RDERABLES * (ABNORMAL) CULTURE TISSUE+GRAM STAIN (05/15/2024 4:34 PM [facility]) Only the most recent of2 resultswithin the time period is included. Culture Rare Streptococcus agalactiae (Group B)(AA) 05/18/2024 11:57 PM [facility] Gram Stain Rare Polymorphonuclear cells 05/18/2024 11:57 PM [facility] Gram Stain No organisms seen 024 11:57 PM [facility] Microbiology ENTIRE FOOT / Unknown 05/15/2024 4:34 PM [facility] 05/15/2024 8:29 PM [facility] Narrative [facility] - 05/18/2024 11:57 PM [facility] Susceptibility testing of penicillin, other beta-lactam antibiotics, and vancomycin is not necessary for beta-hemolytic streptococci groups A,B,C and G because resistant strains have not been recognized. Surgical Description: Left Foot Marcos Quinn DPM LAB - MICROBIOLOGY O RDERABLES [facility] [address] [place], [place] [address], [facility] [phone] * PATHOLOGY TISSUE EXAM (STL) (05/15/2024 4:29 PM [facility]) Case Report Surgical Pathology Report ? Case: [id number] ? Authorizing Provider: ??Marcos Quinn DPM ? Collected: ? 05/15/2024 04:29 PM ? Ordering Location: ? [facility] ?Received: ?05/16/2024 08:13 AM ? Pathologist: ? Kaci Mayo MD ? Specimen: ?Bone Debridement, Calcaneus Bone Left Foot ? 05/18/2024 10:[address] [facility] Final Diagnosis Bone, left calcaneus, debridement - Focal acute osteomyelitis 05/18/2024 10:[address] [facility] Clinical History The patient is a 43-year-old man with left foot infection. Operative procedure: irrigation/debridemen t of foot/ankle. 05/18/2024 10:[address] [facility] Gross Description The requisition and specimen(s) [...] A1, following decalcification. MB 05/18/2024 10:[address] [facility] Microscopic Description Microscopic examination substantiates the above diagnosis. 05/18/2024 10:[address] [facility] Pathologist Location at [facility] 05/18/2024 10:[address] [facility] Disclaimer All histochemical and/or immunohistochemical results are interpreted with controls that demonstrate appropriate staining reactions before reporting results. Note on use of immunocytochemistry reagents: This test was developed and its performance characteristic determined by [facility], Department of Laboratory Medicine. It has [...] be interpreted with caution. 05/18/2024 10:[address] [facility] Embedded Images 05/18/2024 10:[address] [facility] Pathology/Cytolo gy DEBRIDEMENT OF BONE / Unknown 05/15/2024 4:29 PM [facility] 05/16/2024 8:13 AM [facility] Marcos Quinn DPM LAB - PATHOLOGY/CYTO LOGY ORDERABLES [facility] [address] [place], [place] [id number] * (ABNORMAL) HEMOGLOBIN A1C (05/15/2024 12:13 AM [facility]) Only the most recent of2 resultswithin the time period is included. Hemoglobin A1c 6.6(H) <5.7 % 05/15/2024 12:[address] [facility] Estimated Average Glucose 143 mg/dL 05/15/2024 12:[address] [facility] Blood BLOOD SPECIMEN / Unknown Lab Venipuncture / Unknown 05/15/2024 12:13 AM [facility] 05/15/2024 12:23 AM [facility] Narrative [facility] - 05/15/2024 12:56 AM [facility] HbA1c Interpretation: Normal: < 5.7% Pre-diabetes: [...] - CHEMISTRY [facility] Performing Organization Address [facility] Co de Phone Number [facility] [address] [place] [phone] * VANCOMYCIN LEVEL TROUGH (05/15/2024 12:13 AM [facility]) Vancomycin Trough 18.2 10.0 - 20.0 ug/mL 05/15/2024 12:52 AM [facility] Blood BLOOD SPECIMEN / Unknown Lab Venipuncture / Unknown 05/15/2024 12:13 AM [facility] 05/15/2024 12:23 AM [facility] Hattie Liao MD LAB - CHEMISTRY ORDSami [facility] Performing Organization Address [facility] de Phone Number [facility] [address] [place] [phone] * SODIUM URINE RANDOM (05/14/2024 5:31 PM [facility]) Sodium Urine <20 mmol/L 05/14/2024 5:54 PM [facility] Urine URINE SPECIMEN OBTAINED BY CLEAN CATCH PROCEDURE / Unknown Collection / Unknown 05/14/2024 5:31 PM [facility] 05/14/2024 5:36 PM [facility] Zana Tolentino MD LAB - URINE CHEMISTR Y ORDERABLES Performing Organization Address [facility] de Phone Number [facility] [address] [place] [phone] * US Retroperitoneal Complete (05/14/2024 2:17 PM [facility]) Anatomical Region Laterality Modality Abdomen Ultrasound 05/14/2024 4:34 PM [facility] Impressions 05/14/2024 4:35 PM [facility] IMPRESSION: 1.Within normal limits. There is no evidence of hydronephrosis or medical renal disease. 2.The ureteral jets were not identified bilaterally during this study. > Interpreting Provider: Chintan Davey MD on 05/14/2024 4:35 PM Narrative 05/14/2024 4:35 PM [facility] PROCEDURE: ??US RETROPERITONEAL COMPLETE DATE/TIME OF EXAM: [...] * EOSINOPHIL URINE SMEAR (05/14/2024 1:19 PM [facility]) Eosinophils Urine NONE SEEN NONE SEEN 05/14/2024 2:59 PM [facility] Urine URINE SPECIMEN OBTAINED BY CLEAN CATCH PROCEDURE / Unknown Collection / Unknown 05/14/2024 1:19 PM [facility] 05/14/2024 1:32 PM [facility] Zana Tolentino MD LAB - URINE CHEMISTR Y ORDERABLES Performing Organization Address City/[facility]/ZIP Co de Phone Number [facility] [address], [place] [phone] * CULTURE BLOOD (05/14/2024 9:25 AM [facility]) Only the most recent of2 resultswithin the time period is included. Culture No growth day 5 JEFF 05/19/2024 1:31 PM [facility] Blood PERIPHERAL BLOOD / Unknown Lab Venipuncture / Unknown 05/14/2024 9:25 AM [facility] 05/14/2024 9:30 AM [facility] Zana Tolentino MD LAB - MICROBIOLOGY O RDERABLES [facility] [address] [place], [address] [phone] * (ABNORMAL) B-TYPE NATRIURETIC PEPTIDE (05/14/2024 9:16 AM [facility]) BNP 140(H) <=100 pg/mL 05/14/2024 10:10 AM [facility] Blood BLOOD SPECIMEN / Unknown Lab Venipuncture / Unknown 05/14/2024 9:16 AM [facility] 05/14/2024 9:30 AM [facility] Narrative [facility] - 05/14/2024 10:10 AM [facility] A cutoff of 100 pg/mL has been [...] Tolentino MD LAB - CHEMISTRY M[facility]IDA [facility]INS [facility] [address] [place] [phone] * LACTIC ACID BLOOD (05/14/2024 9:16 AM [facility]) [facility] Lactic Acid 1.0 <=2.0 mmol/L 05/14/2024 9:[address] [facility] Blood BLOOD SPECIMEN / Unknown Lab Venipuncture / Unknown 05/14/2024 9:16 AM [facility] 05/14/2024 9:30 AM [facility] Zana Tolentino MD LAB - CHEMISTRY MELIDA COLLINS [facility] [address] [place] [phone] * FOLATE (05/14/2024 9:16 AM [facility]) Pathologist [facility] Folate 8.5 7.0 - 31.4 ng/mL 05/14/2024 10:[address] [facility] Blood BLOOD SPECIMEN / Unknown Lab Venipuncture / Unknown 05/14/2024 9:16 AM [facility] 05/14/2024 9:30 AM [facility] Zana Tolentino MD LAB - CHEMISTRY MELIDA COLLINS Performing Organization Address City/[facility]/ZIP Co de Phone Number [facility] [address] [place] [phone] * (ABNORMAL) VITAMIN B12 (05/14/2024 9:16 AM [facility]) Only the most recent of2 resultswithin the time period is included. Pathologist [facility] Vitamin B12 >2,000(H) 213 - 816 pg/mL 05/14/2024 10:27 AM [facility] Blood BLOOD SPECIMEN / Unknown Lab Venipuncture / Unknown 05/14/2024 9:16 AM [facility] 05/14/2024 9:30 AM [facility] Zana Tolentino MD LAB - CHEMISTRY MELIDA COLLINS Performing Organization Address [facility] Co de Phone Number [facility] [address] [place] [phone] * (ABNORMAL) RETIC COUNT (05/14/2024 4:03 AM [facility]) [facility] Reticulocyte Percent 1.38 0.50 - 2.40 % 05/14/2024 9:[address] [facility] Reticulocyte Absolute 0.0384 0.0200 - 0.1100 x10E6/uL 05/14/2024 9:[address] [facility] Ret-HE 23.6(L) 29.0 - 37.9 pg 05/14/2024 9:13 AM [facility] Immature Reticulocyte Fraction 18.2(H) 1.8 - 15.2 % 05/14/2024 9:[address] [facility] Blood BLOOD SPECIMEN / Unknown Lab Venipuncture / Unknown 05/14/2024 4:03 AM [facility] 05/14/2024 4:13 AM [facility] Zana Tolentino MD LAB - HEMATOLOGY BRYSON MUKHERJEE [facility] [address] [place] [phone] * CK BLOOD (05/14/2024 4:03 AM [facility]) Pathologist [facility] CK 136 30 - 200 U/L 05/14/2024 9:34 AM [facility] Blood BLOOD SPECIMEN / Unknown Lab Venipuncture / Unknown 05/14/2024 4:03 AM [facility] 05/14/2024 4:13 AM [facility] Zana Tolentino MD LAB - CHEMISTRY ORDSami COLLINS Performing Organization Address [facility] Co de Phone Number [facility] [address] [place] [phone] * VANCOMYCIN LEVEL RANDOM (05/14/2024 4:03 AM [facility]) [facility] Vancomycin Random 14.5 <=40.0 ug/mL 05/14/2024 9:[address] [facility] Blood BLOOD SPECIMEN / Unknown Lab Venipuncture / Unknown 05/14/2024 4:03 AM [facility] 05/14/2024 4:13 AM [facility] Narrative [facility] - 05/14/2024 9:34 AM [facility] No reference range available for random Vancomycin levels. All results interpreted by ordering physician. Zana Tolentino MD LAB - CHEMISTRY MELIDA COLLINS Performing Organization Address [facility] Co de Phone Number [facility] [address] [place] [phone] * (ABNORMAL) IRON + TRANSFERRIN PANEL (05/14/2024 4:03 AM [facility]) Pathologist [facility] Iron 11(L) 50 - 175 ug/dL 05/14/2024 9:[address] [facility] Transferrin 100(L) 174 - 382 mg/dL 05/14/2024 9:[address] [facility] TIBC Calculated 125(L) 240 - 450 ug/dL 05/14/2024 9:[address] [facility] Iron Saturation % 9(L) 20 - 50 % 05/14/2024 9:34 AM [facility] Blood BLOOD SPECIMEN / Unknown Lab Venipuncture / Unknown 05/14/2024 4:03 AM [facility] 05/14/2024 4:13 AM [facility] Zana Tolentino MD LAB - CHEMISTRY MELIDA COLLINS Performing Organization Address [facility]/ZIP Co de Phone Number [facility] [address] [place] [address] * (ABNORMAL) FERRITIN (05/14/2024 4:03 AM [facility]) Ferritin 1,357(H) 22 - 275 ng/mL 05/14/2024 10:16 AM [facility] Blood BLOOD SPECIMEN / Unknown Lab Venipuncture / Unknown 05/14/2024 4:03 AM [facility] 05/14/2024 4:13 AM [facility] Zana Tolentino MD LAB - CHEMISTRY MELIDA COLLINS Performing Organization Address [facility]/ZIP Co de Phone Number [facility] [address] [place] [phone] * [place] MSR PVR U&/BLADD CAPCTY US NON (10/08/2023 8:53 AM CDT) Narrative Carol Bowman LPN - 10/08/2023 8:53 AM CDT Carol Bowman LPN ? 10/15/2023 ??1:15 PM 167 mL Emmanuelle Covington DO PROCEDURE/MINOR LOWE RGICAL ORDERABLES * URINALYSIS AUTO - POINT OF CARE (AMB) [facility] (10/08/2023 8:52 AM CDT) Only the most recent of2 resultswithin the time period is included. Glucose UA +- 5 [facility] [address] Bilirubin UA POCT neg [facility] [address] Ketones UA POCT neg [facility] [address] Specific [place] UA 1.030 [facility] [address] Blood Urine POCT +- 10 [facility] [address] pH UA 6.0 [facility] [address] Protein UA 2+ 1.0 [facility] [address] Urobilinogen UA 3.5 [facility] [address] Nitrite UA neg [facility] [address] WBC UA neg [facility] [address] Urine URINE / Unknown 10/08/2023 8 :52 AM CDT Emmanuelle Covington DO LAB - POINT OF CAR E ORDERABLES [facility] [address] [place] [address], [facility] [phone] * PATHOLOGY/CYTOLOGY REPORT ORDER (10/08/2023) 10/08/2023 Narrative 10/08/2023 Ordered by an unspecified provider. Scanned Document LAB - PATHOLOGY/CYTO LOGY ORDERABLES * SS-A (SJOGREN'S) 52+60 ANTIBODIES (09/17/2023 12:47 PM CDT) SS-A 52 Antibody 7 0 - 40 AU/mL 09/19/2023 7:05 AM CDT [employer] ([facility]) Comment: INTERPRETIVE INFORMATION: SSA-52 (Ro52) (KATERYNA) Antibody, IgG ??29 AU/mL or Less ............. Negative ??30 - 40 AU/mL ................ Equivocal ??41 AU/mL or Greater .......... Positive SSA-52 (Ro52) and/or SSA-60 (Ro60) antibodies are associated with a diagnosis of Sjogren syndrome, systemic lupus erythematosus (SLE), and systemic sclerosis. SSA-52 antibody overlaps significantly with the major SSc-related antibodies. SSA-52 (Ro52) antibody occurs frequently in patients with inflammatory myopathies, often in the presence of interstitial lung disease. SS-A 60 Antibody 0 0 - 40 AU/mL 09/19/2023 7:05 AM CDT [employer] ([facility]) Comment: REFERENCE INTERVAL: SSA-60 (Ro60) (KATERYNA) Antibody, IgG ??29 AU/mL or Less ............. Negative ??30 - 40 AU/mL ................ Equivocal ??41 AU/mL or Greater .......... Positive Performed By: [employer] [address] [place] [address] Cotton Farmer: Henrique Myles MD, PhD CLIA Number: [id number] Blood BLOOD SPECIMEN / Unknown Lab Venipuncture / Unknown 09/17/2023 12:47 PM CDT 09/17/2023 1:14 PM CDT Ferny Carreon MD LAB - CHEMISTRY ORDERABLES Performing Organization Address City/[facility]/ZIP Co de Phone Number [facility]) [address] [place] [address] * TSH REFLEX FREE T4 (09/17/2023 12:47 PM CDT) Pathologist [facility] TSH 2.067 0.350 - 4.940 uIU/mL 09/17/2023 2:12 PM CDT [facility] Blood BLOOD SPECIMEN / Unknown Lab Venipuncture / Unknown 09/17/2023 12:47 PM CDT 09/17/2023 1:17 PM CDT Ferny Carreon MD LAB - CHEMISTRY ORDERABLES [address] [address], [facility] [phone] * RHEUMATOID FACTOR BLOOD QUANTITATIVE (09/17/2023 12:47 PM CDT) Pathologist [facility] Rheumatoid Factor <15 <30 IU/mL 09/17/2023 1:51 PM CDT [facility] Rheumatoid Factor Screen Negative Negative 09/17/2023 1:51 PM CDT [facility] Blood BLOOD SPECIMEN / Unknown Lab Venipuncture / Unknown 09/17/2023 12:47 PM CDT 09/17/2023 1:15 PM CDT Ferny Carreon MD LAB - CHEMISTRY ORDERABLES Performing Organization Address [facility]/ZIP Co de Phone Number [address] [address], [facility] [phone] * SS-B (SJOGREN'S) ANTIBODY (09/17/2023 12:47 PM CDT) SS-B Antibody 1 0 - 40 AU/mL 09/19/2023 3:14 PM CDT [employer] ([facility]) Comment: INTERPRETIVE INFORMATION: SSB (La) (KATERYNA) Ab, IgG ??29 AU/mL or Less ............. Negative ??30 - 40 AU/mL ................ Equivocal ??41 AU/mL or Greater .......... Positive SSB (La) antibody is seen in 50-60% of Sjogren syndrome cases and is specific if it is the only KATERYNA antibody present. 15-25% of patients with systemic lupus erythematosus (SLE) and 5-10% of patients with progressive systemic sclerosis (PSS) also have this antibody. Performed By: [employer] [address] [place] [address] Cotton Farmer: Henrique Myles MD, PhD CLIA Number: [id number] Blood BLOOD SPECIMEN / Unknown Lab Venipuncture / Unknown 09/17/2023 12:47 PM CDT 09/17/2023 1:15 PM CDT Ferny Carreon MD LAB - CHEMISTRY ORDERABLES [facility]) [address] * MPO/MN 3 AUTOANTIBODIES PANEL (09/17/2023 12:47 PM CDT) Serine Proteinase 3 IgG 0 0 - 19 AU/mL 09/19/2023 6:55 AM CDT [facility] ([facility]) Comment: INTERPRETIVE INFORMATION: Serine Proteinase 3, IgG ??19 AU/mL or Less ........ Negative ??20-25 AU/mL ............. Equivocal ??26 AU/mL or Greater ..... Positive Approximately 85% of patients with a C-ANCA pattern by IFA have antibodies specific for PR3. Performed By: [place] [address] Cotton Farmer: Henrique Myles MD, PhD CLIA Number: [id number] Myeloperoxidase Antibody 0 0 - 19 AU/mL 09/19/2023 6:55 AM CDT [facility] ([facility]) Comment: INTERPRETIVE INFORMATION: Myeloperoxidase Abs, IgG ??19 AU/mL or Less ......... Negative ??20-25 AU/mL .............. Equivocal ??26 AU/mL or Greater ...... Positive Approximately 90% of patients with a P-ANCA pattern by IFA have antibodies specific for MPO. Blood BLOOD SPECIMEN / Unknown Lab Venipuncture / Unknown 09/17/2023 12:47 PM CDT 09/17/2023 1:14 PM CDT Ferny Carreon MD LAB - CHEMISTRY ORDERABLES [facility]) [address] [place] [address], [facility] * (ABNORMAL) COMPREHENSIVE METABOLIC PANEL (09/17/2023 12:47 PM CDT) BUN 18 7 - 26 mg/dL 09/17/2023 1:50 PM CDT [facility] Creatinine 0.75 0.71 - 1.16 mg/dL 09/17/2023 1:50 PM CDT [facility] Sodium 140 136 - 145 mmol/L 09/17/2023 1:50 PM CDT [facility] Potassium 3.8 3.5 - 4.5 mmol/L 09/17/2023 1:50 PM CDT [facility] Chloride 108(H) 98 - 107 mmol/L 09/17/2023 1:50 PM [facility] CO2 26 22 - 29 mmol/L 09/17/2023 1:50 PM [facility] Glucose 119(H) 70 - 115 mg/dL 09/17/2023 1:50 PM [facility] Calcium 9.6 8.4 - 10.2 mg/dL 09/17/2023 1:50 PM [facility] Protein Total 6.9 6.0 - 8.3 g/dL 09/17/2023 1:50 PM [facility] Albumin 3.6 3.4 - 5.0 g/dL 09/17/2023 1:50 PM [facility] Bilirubin Total 0.5 0.2 - 1.2 mg/dL 09/17/2023 1:50 PM [facility] Alkaline Phosphatase 84 40 - 150 U/L 09/17/2023 1:50 PM [facility] ALT 11 5 - 55 U/L 09/17/2023 1:50 PM [facility] AST 12 5 - 34 U/L 09/17/2023 1:50 PM [facility] Anion Gap 6 6 - 16 09/17/2023 1:50 PM [facility] BUN/Creatinine Ratio 24(H) 7 - 23 09/17/2023 1:50 PM [facility] Osmolality Calculated 293 275 - 295 mOsm/kg 09/17/2023 1:50 PM [facility] Albumin/Globulin Ratio 1.1 1.1 - 2.3 09/17/2023 1:50 PM [facility] eGFR by CKD-EPI >90 >=90 mL/min/1.7 3 m2 09/17/2023 1:50 PM [facility] Blood BLOOD SPECIMEN / Unknown Lab Venipuncture / Unknown 09/17/2023 12:47 PM CDT 09/17/2023 1:17 PM T Ferny Carreon MD LAB - CHEMISTRY ORDERABLES [facility] [address] [place] [address], [facility] [phone] * PROTEIN ELECTROPHORESIS BLOOD (09/17/2023 12:47 PM CDT) Interpretation Serum PE Normal Pattern Normal Pattern 09/21/2023 4:52 PM CDT [facility] Comment: Serum capillary electrophoresis shows characteristic bands corresponding to albumin, alpha and beta globulins and polyclonal immunoglobulins. No monoclonal immunoglobulin detected. Non-secretory myeloma (NSM) and light chain only myeloma cannot be excluded based on this result. ??Recommend serum free light chain measurements for complete evaluation of plasma cell disorders. ?? Renata Wadsworth, PGY-3 [facility] Department of Pathology I have reviewed and agree with the resident's interpretation and description of this case. Laquita Ramírez MD Attending Physician Department of Pathology Transfusion Medicine *The electrophoresis pattern and the interpretation have been reviewed and verified by the teaching physician. Protein Total 6.6 6.0 - 8.3 g/dL 09/21/2023 4:52 PM CDT [facility] Albumin 3.6 3.3 - 5.6 g/dL 09/21/2023 4:52 PM CDT [facility] Alpha-1 Globulins 0.3 0.2 - 0.4 g/dL 09/21/2023 4:52 PM CDT [facility] Alpha-2 Globulins 0.9 0.5 - 1.0 g/dL 09/21/2023 4:52 PM CDT [facility] Beta Globulins 0.8 0.6 - 1.1 g/dL 09/21/2023 4:52 PM CDT [facility] Gamma Globulins 1.0 0.6 - 1.6 g/dL 09/21/2023 4:52 PM CDT [facility] Blood BLOOD SPECIMEN / Unknown Lab Venipuncture / Unknown 09/17/2023 12:47 PM CDT 09/17/2023 1:15 PM CDT Ferny Carreon MD LAB - CHEMISTRY ORDERABLES [facility] [address] [place] [id number], [facility] [phone] * HEPATITIS C ANTIBODY (09/17/2023 12:47 PM CDT) Hepatitis C Antibody Non-react micah Non-reac tive 09/17/2023 2:10 PM CDT [facility] Comment:Hepatitis C Antibody screen indicates [...] Ferny Carreon MD LAB - CHEMISTRY ORDERABLES Performing Organization Address City/[facility]/ZIP Co de Phone Number [facility] [address] [place] [address], [facility] [phone] * CULTURE URINE (07/31/2023 11:00 PM [facility]) Only the most recent of2 resultswithin the time period is included. Pathologist [facility] Comment: ??CULTURE, URINE, ROUTINE ?Micro Number: ?[id number] ??Test Status: ? Final ??Specimen Source: ?? Urine ??Specimen Quality: ??Adequate ??Result: ?No Growth NO COLLECTION DATE RECEIVED. WE HAVE USED THE DATE THE SPECIMEN WAS RECEIVED BY THIS LABORATORY THE COLLECTION DATE. IF THIS IS INCORRECT, PLEASE CONTACT CLIENT SERVICES. PHONE NUMBER: [phone] Test Performed at: [employer] ??[id number] GLADIS GAMEZ MD 07/31/2023 4: 22 AM [facility] Cassandra Moore APRN-LICENSED CHEMICAL SPRAY TECHNICIAN LAB - MICROBIOL OGY ORDERABLES Performing Organization Address City/[facility]/ZIP Co de Phone Number [address] [address] * [place] MSR PVR U&/BLADD CAPCTY US NON (07/16/2023 1:44 PM [facility]) Narrative Vane Ibrahim MA - 07/16/2023 1:44 PM [facility] Vane Ibrahim MA ? 07/16/2023 ??1:44 PM Bladder scan completed. 84ml post void residual. Cassandra Moore CLIENT INSIGHTS CONSULTANT-LICENSED CHEMICAL SPRAY TECHNICIAN PROCEDURE/MINOR SURGICAL ORDERABLES Care Teams Continuous Pillowcase Cutter Relationship Specialty Start Date End Date Nguyễn Bingham MD [facility] [address] [address] PCP - General Family Medicine 07/03/23
--- OUTSIDE RECORDS SUMMARY | 2024-06-08 | XMS_ITS | Encounter Summary ---
Author Organization [facility] Address [address] [place] [address] Care Team Providers Care Net Lead Developer Name Role Phone Nguyễn Bingham MD Primary Care Provider [phone] Reason for Visit * Auth/Cert (Routine) Specialty Diagnoses / Procedures Referred By Contac t Referred To Contact Diagnoses Foot Ulcer Referral ID Status Reason Start Date Expiration Date Visits Re quested Visits Authorized [id number] 1 1 Encounter Details Date Type Department Care Team (Late st Contact Info) Description 05/20/2024 2:17 PM INSURANCE AND BENEFITS CLERK Anesthesia Event [facility] [address] [place] [address] James Luong MD [address] [address] [place] [address] [place] [address] Anesthesia Record Procedure Summary Procedure Name Responsible Anesthesiologist Anesthesia Start Time Anesthesia Stop Time DEBRIDEMENT FOOT WOUND WITH GRAFT- LEFT (Left: Foot) James Luong MD 05/20/24 1417 05/20/24 1605 Events Date Time Event Comment 05/20/2024 1318 1417 An Start 1419 An Start Data 1419 PT Reassessment 1441 Timeout Anesthesia part icipated in timeout at the time documented in the record by nursing. 1556 an stop data 1556 Electnc Sig This record is electronically signed by the providers listed under staff. 1556 ANPTO2 1605 An Stop Meds Name Total fentaNYL 100 mcg/2mL injection 100 mcg lidocaine 2% injection (20 mg/ml) 100 mg propofol (DIPRIVAN) injection 10mg/mL 1, 388.45 mg phenylephrine 1000 mcg/10mL injection 60 0 mcg ondansetron 4 mg/2mL injection 4 mg lactated ringers infusion 800 mL * Agents Name Exp. Sevoflurane O2 Flow - Auxiliary O2 Insp. Sevoflurane N2O * Blood No blood administrations on file. Lines, Drains, and Airways Type Details Placement Removal Other Wound 05/13/24; 2333; Yes; Left (heel); Foot (left heel); 05/26/24; 190405/13/24 2334 by Kylee Gayle RN 05/26/241904 by Generic, Auto Release External Urinary Catheter 05/14/24; 2144; 05/26/24; 190405/14/242144 by Luis Daniel Starks RN 05/26/241904 by Generic, Auto Release Procedural Site (Incision) 05/15/24; 1551; Left; Foot; 05/20/24; 213305/15/24 1551 by Jag Hernandez RN 05/20/242133 by Lashell Álvarez RN Peripheral IV Date: 05/16/24; Time: 1131; Orientation: Anterior, Left; Location: Forearm; Gauge: 18 G 05/16/24 1131 by Shilpi Schmitt, ARYAN 05/24/24 1119 by Rio Schmitz RN Procedural Site (Incision) 05/20/24; 1423; Left; Foot; 05/24/24; 1130 05/20/24 1423 by Ga Ballard RN 05/24/24 1130 by Ursula Grider, ARYAN documented in this encounter Social History Tobacco Use Types Packs/Day Years [...] Recorded Patient Health Questionnaire-2 Score 1 10/01/2023 [facility] - Occupational Stress [...] any time in the past [address] [facility], were you homeless or living in a fpc (including now)? No 05/13/2024 Sex and Gender Information Value Date Recorded Sex Assigned at Not on file Gender Identity Not on file Sexual Orientation Not on file documented as of this encounter Functional Status Functional Status Response Date of [...] person have difficulty concentrating/remembering/making decisions? No 05/13/2024 documented as of this encounter Progress Notes * Javier Polanco APRN-CRNA - 05/20/2024 4:05 PM CST ANESTHESIA POSTOP EVALUATION NOTE Procedure: DEBRIDEMENT FOOT WOUND WITH GRAFT- LEFT (Left: Foot) Rene Hyatt is a 43 year old male No data found. Anesthesia Type: MAC Pre-op Diagnosis Codes: * Diagnosis unknown [R69] Mental Status: awake, alert and sufficiently recovered from acute administration of anesthesia to participate in the evaluation Neuro Status: No numbness, tingling or visual disturbances Respiratory Function: natural Cardiac Function: stable Postop Pain: acceptable to the patient Postop Hydration: adequate Postop Nausea: none Assessment: no apparent anesthetic complications, patient tolerated procedure well and no evidence of recall Patient Disposition: Release from Anesthesia Care NOTABLE EVENTS: No notable events documented. RANCE AND BENEFITS CLERK * James Luong MD - 05/20/2024 1:17 PM CST ANESTHESIA PREOPERATIVE EVALUATION NOTE Pt is a 43 yo male w/ a h/o HTN, DM II w/ PN, morbid obesity, HLD, anemia, anxiety, depression, WEST, bph Procedure: DEBRIDEMENT FOOT WOUND WITH POSSIBLE GRAFT- LEFT (Foot) Vitals: Patient Vitals for the past 6 hrs: BP Temp Pulse Resp SpO2 05/20/24 0857 156/77 98.6 ??F (37 ??C) 90 19 94 % LMP: No LMP for male patient. OB Status: unknown ANESTHESIA PRE-EVALUATION NOTE The patient is a current non-smoker. Physical Exam: Orientation X3 Airway/Mallampati Score: III Mouth Opening Distance: 3 fingerwidths Neck ROM: full TM Distance: > 3 FB Teeth: normal Heart: normal - S1 S2 Lungs: clear to ausculation bilaterally Abdomen Exam: soft Review of Systems: Sleep Apnea Risk: Yes Diagnostic Tests: Lab(s) reviewed: Yes. Other Findings: ANESTHESIA PLAN ASA Score: 4 NPO Status: No solids since midnight, No solids for 6 hours and No liquids within 2 hours Anesthesia Plan: MAC Planned Induction: intravenous Planned Postop Destination: PACU Anesthetic plan was discussed with: patient Anesthetic Plan discussion was: Consented The patient's procedural Anesthetic Plan was discussed with the CLERICAL ASSIGNER. BMI, Height, Weight Tobacco History Estimated body mass index is 45.67 kg/m?? as calculated from the following: Height as of this encounter: 2.007 m (6' 7 ). Weight as of this encounter: 183.9 kg (405 lb 6.4 oz). Social History Tobacco Use Smoking Status Never Smokeless Tobacco Never Alcohol History Drug History Social History Substance and Sexual Activity Alcohol Use Never Social History Substance and Sexual Activity Drug Use Never Outpatient Medications: Inpatient Medications: Outpatient Medications Marked as Taking for the 05/13/24 encounter (Hospital Encounter) Medication Sig Last Dose amLODIPine Take 1 (one) tablet by mouth once daily Unknown buPROPion SR 12hr Take 1 (one) tablet by mouth 2 times daily metFORMIN Take 1 (one) tablet by mouth 2 times daily with morning and evening meal Nutritional Supplement Take 1 packet by mouth 2 times daily for 28 days Pt encouraged to continue with Doyle BID for 28 days post discharge to optimize healing. Doyle can be purchased at [facility] located across from [facility] ([address] [place] [address]) for a reduced cost. respiratory support technician is encouraged to prevent delivery fees, but if this isn't feasible it can be delivered to the home by calling [phone]. tirzepatide Inject 5 (five) mg subcutaneously every 7 days vitamin D (ergocalciferol) Take 1 (one) capsule by mouth every 7 days Takes on thursday Current Facility-Administered Medications Medication Dose Last Admin NaCl 250 mL 250 mL at 05/19/242005 acetaminophen 650 mg atorvastatin 40 mg 40 mg at 05/19/242007 benzonatate 100 mg 100 mg at 05/19/24 0050 buPROPion XL 24hr 150 mg 150 mg at 05/20/24 0912 cefepime 2 g Stopped at 05/20/24 0436 cyclobenzaprine 5 mg 5 mg at 05/16/24 1422 dextrose IV for hypoglycemia 12.5 g Or dextrose IV for hypoglycemia 25 g Or glucagon 1 mg enoxaparin 40 mg 40 mg at 05/20/24 0912 ferrous sulfate 325 mg 325 mg at 05/19/24 1226 gabapentin 300 mg 300 mg at 05/20/24 09 glucose (Diabetic Use) gel HYDROcodone-acetaminophen 1 tablet insulin aspart 0-4 Units 2 Units at 05/18/241958 insulin aspart 0-6 Units 3 Units at 05/18/24 171 insulin aspart 15 Units 15 Units at 05/19/24 181 insulin glargine 24 Units 24 Units at 05/19/242019 metroNIDAZOLE 500 mg 500 mg at 05/20/24 0629 ondansetron 4 mg pantoprazole EC 40 mg 40 mg at 05/20/24 09 polyethylene glycol 3350 17 g sodium zirconium cyclosilicate 10 g 10 g at 05/19/24 1357 tamsulosin 0.4 mg 0.4 mg at 05/20/24 09 Allergies: No Known Allergies Relevant Problems Cardiovascular (+) Hypertension (+) RENALDO (acute kidney injury) ([facility]) Endocrine (+) T1DM (type 1 diabetes mellitus) ([facility]) Other (+) Acute osteomyelitis ([facility]) Problem List: Patient Active Problem List Diagnosis Date Noted Acute osteomyelitis ([facility]) 05/19/2024 Priority: Not Prioritized Sepsis ([facility]) 05/19/2024 Priority: Not Prioritized RENADLO (acute kidney injury) ([facility]) 05/19/2024 Priority: Not Prioritized Hyperkalemia 05/19/2024 Priority: Not Prioritized Hyperglycemia 05/19/2024 Priority: Not Prioritized Ulcer of left foot with other severity ([facility]) 05/12/2024 Priority: Not Prioritized Class 3 obesity 03/16/2023 Priority: Not Prioritized Last Assessment & Plan: Complicates all aspects of care. - Perform STOP BANG > At least intermediate risk > Amb ref pulm vs sleep - Eval for bariatric surgery, GLP-RA would be appropriate Hypertension 03/16/2023 Priority: Not Prioritized Last Assessment & Plan: Blood pressure modestly elevated. - elect DEBBI/ARB in DM (ACR 44) > start losartan 25 03/17 Last Assessment & Plan: Blood pressure modestly elevated. - elect DEBBI/ARB in DM (ACR 44) > start losartan 25 03/17 Anemia 03/10/2023 Priority: Not Prioritized Last Assessment & Plan: BL 10-11. No signs of bleeding -CTM Hgb Diabetic foot ulcer ([facility]) 03/10/2023 Priority: Not Prioritized Last Assessment & Plan: Wound to planter [...] diabetic shoes with custom offloading inserts for fdc sheogear - Heel strike shoe is causing thepatient difficulty walking, collaborating with PT, nursing, DM [...] diabetic shoes with custom offloading inserts for bed bug exterminator sheogear - Heel strike shoe is causing the patient difficulty walking, collaborating with PT, nursing, DM re: solutions - collab w/ PT, ordered shoe for right foot to assist with balance / walking > mobility improved T1DM (type 1 diabetes mellitus) ([facility]) 03/10/2023 Priority: Not Prioritized Presented on this admission in DKA with A1c 13.3, AGMA, ketones and urine and serum. Managed with insulin gtt and transitioned to basal/bolus currently Last Assessment & Plan: Newly diagnosed this admission. Endocrinology following and currently on basal bolus regimen. In sulin Ab, IA-2 Ab, ZNT8 Ab neg, GAD65 0.31 (<0.02) - cont lantus, lispro per endocrinology recs - continue atorvastatin 20 mg daily - patient seen by DM educator - Endocrine final recommendation -Glargine 20 units qHS + Lispro 10 units [...] SC q weekly Vitamin D deficiency 03/10/2023 Priority: Not Prioritized Last Assessment & Plan: Undetectable Vit D [...] x 2 months and calcium supplementation for l2cnmiyt. - plan for vit d 2k daily after 50k loading phase - f/u with PCP Medical History: No past medical history on file. 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 unknown OB History No obstetric history on file. Covid Vaccine: Lab Results: Recent Labs Base Name 05/20/24 0856 [id number] 181* SPECIMENTYPE Cap Fingerstick Recent Labs Component Name 05/18/24 0338 WBC 14.5* RBC 2.76* HCT 24.7* HGB 7.7* PLTCOUNT 330 MCV 89.5 MCH 27.9 MCHC 31.2* MPV 8.6 Recent Labs Component Name 05/17/24 1314 05/16/24 1257 BLOODUA - 2+* WBCUA - 6-10* NITRITEUA - Negative PROTEINUA - 1+* CREATININEUR 77.41 - Recent Labs Component Name 05/20/24 0309 SODIUM 136 POTASSIUM 4.8 CALCIUM 8.6 CHLORIDE 109* CO2 23 GLUCOSE 167* BUN 33* CREATININE 1.44* Recent Labs Component Name 05/20/24 0309 PHOS 3.3 Recent Labs Component Name 05/14/24 0916 BNP 140* Recent Labs Result Component Current Result CK 136 (05/14/2024) Recent Labs Result Component Current Result Albumin 1.7 (L) (05/20/2024) Anion Gap 4 (L) (05/20/2024) eGFR by CKD-EPI 61 (L) (05/20/2024) Anesthesia pre op re evaluation by James Luong MD 05/15/2024 1:18 PM RANCE AND BENEFITS CLERK documented in this encounter Miscellaneous Notes * Anesthesia Transfer of Care - Javier Polanco APRN-CLERICAL ASSIGNER - 05/20/2024 4:05 PM CST ANESTHESIA TRANSFER OF CARE NOTE Today's Date: 05/20/2024 Date of : 1980 Patient: Rene Hyatt Procedure(s): DEBRIDEMENT FOOT WOUND WITH GRAFT- LEFT Surgeon(s): Primary: Marcos Quinn DPM Preop Diagnosis: Pre-op Diagnois: * Diagnosis unknown [R69] Pre-op Meds (From admission, onward) Start Stop Status Route Frequency Ordered 05/13/24 222 0.9% NaCl flush bag -- Dispensed IV CONTINUOUS PRN 05/13/24 22205/18/24 111 acetaminophen (Tylenol) tablet 650 mg -- Verified PO EVERY 6 HOURS PRN 05/18/24 1114 05/13/24 211 atorvastatin (Lipitor) tablet 40 mg -- Dispensed PO AT BEDTIME 05/13/24203405/17/24 133 benzonatate (Tessalon) capsule 100 mg -- Dispensed PO 3 TIMES DAILY PRN 05/17/24 1335 05/20/24 1505 BUPivacaine PF (Marcaine PF) 0.5 % injection -- Sent PRN 05/20/24 1505 05/14/24 0900 buPROPion XL 24hr (Wellbutrin-XL) tablet 150 mg Note to Pharmacy: OP sig: Take 1 (one) tablet by mouth once daily -- Dispensed PO DAILY 05/13/24203405/14/24 1000 cefepime (Maxipime) 2,000 mg in 0.9% NaCl IV 50 mL IVPB -- Dispensed IV EVERY 8 HOURS 05/14/2491605/16/24 130 cyclobenzaprine (Flexeril) tablet 5 mg -- Dispensed PO 3 TIMES DAILY PRN 05/16/24130505/13/242050 dextrose 10 % IV bolus Placed in Or Linked Group -- Verified IV PRN 05/13/24205005/13/242050 dextrose 10 % IV bolus Placed in Or Linked Group -- Verified IV PRN 05/13/24205005/13/242244 enoxaparin (Lovenox) injection 40 mg -- Dispensed SC 2 TIMES DAILY 05/13/24203405/20/24 143 fentaNYL (PF) (Sublimaze) injection -- Sent IV PRN 05/20/24142905/13/242129 ferrous sulfate tablet 325 mg -- Dispensed PO DAILY AFTER LUNCH 05/13/24203405/13/242114 gabapentin (Neurontin) capsule 300 mg Note to Pharmacy: OP sig: Take 1 (one) capsule by mouth 3 times daily -- Dispensed PO 3 TIMES DAILY 05/13/24203405/13/242050 glucagon (Glucagen) injection 1 mg Placed in Or Linked Group -- Verified SC PRN 05/13/24205005/13/242050 glucose (Diabetic Use) oral gel -- Verified PO PRN 05/13/24205005/17/24 145 HYDROcodone-acetaminophen (Vernon) 5-325 MG tablet 1 tablet -- Verified PO EVERY 4 HOURS PRN 05/17/24 1457 05/14/24 2100 insulin aspart (NovoLOG) pen 0-4 Units -- Verified SC AT BEDTIME 05/14/2491605/14/24 1200 insulin aspart (NovoLOG) pen 0-6 Units -- Dispensed SC 3 TIMES DAILY WITH MEALS 05/14/24 0917 05/18/24 1200 insulin aspart (NovoLOG) pen 15 Units -- Verified SC 3 TIMES DAILY WITH MEALS 05/18/24 0833 05/17/24 2100 insulin glargine (Lantus) pen 24 Units -- Verified SC AT BEDTIME 05/17/24 1455 05/20/24 1417 lactated ringers infusion -- Sent IV CONTINUOUS PRN 05/20/24 1433 05/20/24 1425 lidocaine HCl (PF) (Xylocaine MPF) 2 % injection -- Sent IV PRN 05/20/24 1425 05/20/24 1505 lidocaine PF (Xylocaine MPF) 1 % injection -- Sent PRN 05/20/24 1505 05/14/24 0930 metroNIDAZOLE (Flagyl) tablet 500 mg -- Dispensed PO EVERY 8 HOURS 05/14/24 0917 05/20/24 1433 ondansetron (Zofran) injection -- Sent IV PRN 05/20/24 1433 05/16/24 191 ondansetron (Zofran) injection 4 mg -- Verified IV EVERY 6 HOURS PRN 05/16/24 1917 05/14/24 0900 pantoprazole EC (Protonix) tablet 40 mg -- Dispensed PO DAILY 05/13/24203405/20/24 1526 phenylephrine 100 mcg/mL injection -- Sent IV PRN 05/20/24 1526 05/19/24 1130 polyethylene glycol 3350 (Miralax) packet 17 g -- Dispensed PO DAILY 05/19/24 1046 05/20/24 1425 propofol (Diprivan) injection -- Sent IV CONTINUOUS PRN 05/20/24 1425 05/19/24 1300 sodium zirconium cyclosilicate (Lokelma) packet 10 g 05/22/24 1259 Dispensed PO DAILY at 1300 05/19/24 1046 05/14/24 0900 tamsulosin (Flomax) capsule 0.4 mg Note to Pharmacy: OP sig: Take 1 (one) capsule by mouth once daily At the same time every day aftera meal. -- Dispensed PO DAILY 05/13/24203405/20/24 1536 thrombin (Thrombogen; Thrombostat) kit -- Sent PRN 05/20/24 1539 Post-op Diagnosis: * Diagnosis unknown [R69] . No Known Allergies Vitals: No data found. Lines, Drains, and Airways Type Details Placement Removal Peripheral IV Date: 05/16/24; Time: 113; Orientation: Anterior, Left; Location: Forearm; Gauge: 18G 05/16/24 1131 by Shilpi Schmitt RN Intraprocedure I/O Totals Intake lactated ringers infusion 800.00 mL Total Intake 800 mL Output Estimated Blood Loss 200 mL Total Output 200 mL Net Net Volume 600 mL Patient Transfer Location: PACU Transport Airway: supplemental O2 and spontaneous respirations Notable Events: None Handoff Given? Yes Checklist or Protocol - The elizabeth handoff elements that must be included in the transfer of care checklist include: 1. Identification of patient. 2. Identification of responsible practitioner (PACU nurse or advanced practitioner). 3. Discussion of pertinent medical history. 4. Discussion of the surgical/procedure course (procedure, reason for surgery, procedure performed). 5. Intraoperative anesthetic management and issue/concerns. 6. Expectations/Plans for the early post-procedure period. 7. Opportunity for questions and acknowledgement of understanding of report from the receiving PACUteam. NOTABLE EVENTS: No notable events documented. JANET Mancuso RANCE AND BENEFITS CLERK documented in this encounter Plan of Treatment Not on file documented as of this encounter Visit Diagnoses Not on filedocumented in this encounter Administered Medications Inactive Administered Medications - up to 3 most recent administrations Medication Order MAR Action Action Date Dose Rate Site fentaNYL (PF) (Sublimaze) injection Intravenous, PRN, Starting on Thu05/20/24 at 1430, Until Thu05/20/24 at 1605, Anesthesia Intra-op $ Given 05/20/2024 3:17 PM INSURANCE AND BENEFITS CLERK 25 mcg $ Given 05/20/2024 2:49 PM INSURANCE AND BENEFITS CLERK 50 mcg $ Given 05/20/2024 2:30 PM INSURANCE AND BENEFITS CLERK 25 mcg lactated ringers infusion Intravenous, CONTINUOUS PRN, Starting on Thu05/20/24 at 1417, Until Thu05/20/24 at 1605, Anesthesia Intra-op $ New Bag/Syringe 05/20/2024 2:17 PM INSURANCE AND BENEFITS CLERK lidocaine HCl (PF) (Xylocaine MPF) 2 % injection Intravenous, PRN, Starting on Thu05/20/24 at 1425, Until Thu05/20/24 at 1605, Anesthesia Intra-op $ Given 05/20/2024 2:25 PM INSURANCE AND BENEFITS CLERK 100 mg ondansetron (Zofran) injection Intravenous, PRN, Starting on Thu05/20/24 at 1433, Until Thu05/20/24 at 1605, Anesthesia Intra-op $ Given 05/20/2024 2:33 PM INSURANCE AND BENEFITS CLERK 4 mg phenylephrine 100 mcg/mL injection Intravenous, PRN, Starting on Thu05/20/24 at 1526, Until Thu05/20/24 at 1605, Anesthesia Intra-op $ Given 05/20/2024 3:49 PM INSURANCE AND BENEFITS CLERK 200 mcg $ Given 05/20/2024 3:31 PM INSURANCE AND BENEFITS CLERK 200 mcg $ Given 05/20/2024 3:26 PM INSURANCE AND BENEFITS CLERK 200 mcg propofol (Diprivan) injection Intravenous, CONTINUOUS PRN, Starting on Thu05/20/24 at 1425, Until Thu05/20/24 at 1605, Anesthesia Intra-op Rate Change 05/20/2024 3:31 PM INSURANCE AND BENEFITS CLERK 75 mcg/kg/min 82.755 mL/hr Rate Change 05/20/2024 2:35 PM INSURANCE AND BENEFITS CLERK 100 mcg/kg/min 110.34 m L/hr $ New Bag/Syringe 05/20/2024 2:25 PM INSURANCE AND BENEFITS CLERK 75 mcg/kg/min 82. 755 mL/hr documented in this encounter Care Teams Net Lead Developer Relationship Specialty Start Date End Date Nguyễn Bingham MD [address] [place] [id number] PCP - General Family Medicine 07/03/23 documented as of this encounter
--- OUTSIDE RECORDS SUMMARY | 2024-06-08 | XMS_ITS | Encounter Summary ---
Author Organization [facility] Address [address] [place] [address] Care Team Providers Care Housekeeping Laundry Worker Name Role Phone Nguyễn Bingham MD Primary Care Provider [phone] Reason for Referral * (Routine) - Open Specialty Diagnoses / Procedures Referred By Contac t Referred To Contact Procedures Follow up with provider Tereza Mcpherson MD [address] [id number] [place] [address] [facility] [address] [address] Referral ID Status Reason Start Date Expiration Date Visits Re quested Visits Authorized [id number] Open 05/26/2024 05/26/2025 1 1 MENT SETTER HELPER * (Routine) - Open Specialty Diagnoses / Procedures Referred By Contac t Referred To Contact Procedures Follow up with provider Tereza Mcpherson MD [address] [place] [id number] Abby Quinn DPM [address] [address] Referral ID Status Reason Start Date Expiration Date Visits Re quested Visits Authorized [id number] Open 05/26/2024 05/26/2025 1 1 MENT SETTER HELPER * Home Health Care (Routine) - Pending Review Specialty Diagnoses / Procedures Referred By Padmini villaseñor Referred To Contact Home Health Services Diagnoses Left foot infection Hattie Liao MD [address] [facility] [address] [place] [address] Referral ID Status Reason Start Date Expiration Date Visits Requested Visits Authorized [id number] Pending Review Specialty Services Required 4 05/25/2025 999 999 MENT SETTER HELPER Reason for Visit * Auth/Cert (Routine) Specialty Diagnoses / Procedures Referred By Padmini villaseñor Referred To Contact Diagnoses Foot Ulcer Referral ID Status Reason Start Date Expiration Date Visits Re quested Visits Authorized [id number] 1 1 Encounter Details Date Type Department Care Team (Latest Contact Info) Description 05/13/2024 4:58 PM MONUMENT SETTER HELPER - 05/26/2024 1:04 PM MONUMENT SETTER HELPER Hospital Encounter [facility] MED[facility] [address] [place] [address] [place] [address] [place], [place] [id number] Zana Tolentino MD [address] [facility] [address] [place] [address] Manpreet Stuart MD [address] [place] [address] Tereza Mcpherson MD [address] [facility] [address] [place] [phone] Podiatry Discharge Disposition: [facility] Facility Social History Tobacco Use Types Packs/Day Years [...] Recorded Patient Health Questionnaire-2 Score 1 10/01/2023 [facility] - Occupational Stress [...] any time in the past 12 m [facility], were you homeless or living in a [facility] (including now)? No 05/13/2024 Sex and Gender Information Value Date Recorded Sex Assigned at Not on file Gender Identity Not on file Sexual Orientation Not on file documented as of this encounter Last Filed Vital Signs Vital Sign Reading Time Taken Comments Blood Pressure 115/73 05/26/2024 11:49 AM MONUMENT SETTER HELPER Pulse 94 05/26/2024 11:49 AM MONUMENT SETTER HELPER Temperature 36.9 ??C (98.4 ??F) 05/26/2024 1 1:49 AM MONUMENT SETTER HELPER Respiratory Rate 23 05/26/2024 4:01 AM MONUMENT SETTER HELPER Oxygen Saturation 95% 05/26/2024 11: 49 AM MONUMENT SETTER HELPER Inhaled Oxygen Concentration 21% 02/2024 11:13 PM MONUMENT SETTER HELPER Weight 183.9 kg (405 lb 6.4 oz) 024 10:13 PM MONUMENT SETTER HELPER Height 200.7 cm (6' 7 ) 05/13/2024 10:1 3 PM MONUMENT SETTER HELPER Body Mass Index 45.67 05/13/2024 10:13 PM MONUMENT SETTER HELPER documented in this encounter Functional Status Functional Status Response [...] No 05/13/2024 documented as of this encounter Discharge Summaries * Tereza Mcpherson MD - 05/26/2024 1:04 PM CST HOSPITALIST DISCHARGE SUMMARY NAME: Rene Hyatt : 1980 DATE OF ADMISSION: 05/13/2024 DATE OF DISCHARGE: 05/26/2024 FINAL DIAGNOSES: Include all new and active diagnoses. Acute osteomyelitis of the left calcaneous status post excisional debridement of left foot wound on05/15 and 2nd debridement with application of and graft on 05/20 by Podiatry CHRISTIE DISCHARGE DESTINATION: correction facility FOLLOW UP PLAN: Include list of active issues: Next steps Testing & Referrals Scheduled: Testing & Referrals TBD: Timing Provider Follow-up with PCP within 6 days Follow up with Podiatry within 1-2 weeks Follow up with Infectious Disease within 1-2 weeks PENDING TEST RESULTS: N/A INCIDENTAL FINDINGS REQUIRING FOLLOW UP: N/A READMISSION RISK SCORE: 19+: high 30 day readmission risk 0-18: low-moderate 30 day readmission risk 11 at 2:22 PM 05/26/2024. Secondary/Resolved/Significant Prior Diagnoses: N/A PRESENTING HISTORY: Per Dr. Richter: 43yo M noncompliant Pt is a transfer from [facility]. Pt preseneted with LLE wound. He hasbeen transferred for Podiatry services. Pt has been admitted for further evaluation and treatment. Pt seen and examined by me in his room 363. No fever. No chest pain. Pt tolerating PO. No new issuesas per RN. Pt rates his pain as 7/10 intensity, sharp in nature. HOSPITAL COURSE: (include consults and procedure details) He was found to have osteomyelitis of his left calcaneus. He was also found to have acute kidney injury. ABIs did not show signs of significant peripheral arterial disease. Podiatry was consulted andperformed excisional debridement of left foot wound on 05/15 and 2nd debridement with application ofand graft on 05/20 by Podiatry. Wound VAC is now in place. Wound cultures grew Morganella, group B strep, Proteus and multiple anaerobic bacteria. Infectious Disease was consulted and recommended ceftriaxone and Flagyl until June 25, 2024. Regarding acute kidney injury, renal ultrasound did not show evidence of hydronephrosis or medical renal disease. Creatinine plateaued around 1.3. Suspect this is patient's new baseline. Patient requested to be discharged to rehab. Insurance denied acute rehab. [facility] facility. PICC line was placed on 05/24. Podiatry recommended partial weight- bearing through left forefoot with walker. He was discharged to facility with recommendation to follow up outpatient with his PCP, landscaping crew leader and Infectious Disease physician. He is to have labs sent to the infectious disease physician weekly. POA ACTIVATED STATUS: YES RADIOLOGY: (last 7 days) + additional pertinent studies US retroperitoneal 1.Within normal limits. There is no evidence of hydronephrosis or medical renal disease. 2.The ureteral jets were not identified bilaterally during this study. XR left foot Ulceration versus surgical debridement of the posterior plantar soft tissue of the foot and calcaneus. MRI left foot 1. Large soft tissue wound//debridement surrounding the calcaneus and extending to bone. 2. There is mild osteomyelitis in the lateral calcaneal tubercle. However most of the calcaneal marrow changes are likely reactive. 3. No visible abscess. 4. Detached peroneal tendons. 5. Other findings as described MONO No evidence for significant arterial insufficiency of either the right or left lower extremity at rest. Bilateral digital tracings are pulsatile. Bone biopsy Bone, left calcaneus, debridement - Focal acute osteomyelitis RECENT/NOTABLE LABS: include pertinent positives Recent Labs Component Name 05/24/24 0508 SODIUM 140 POTASSIUM 4.3 CHLORIDE 111* CO2 23 BUN 26* CREATININE 1.33* EGFR 68* Recent Labs Component Name 05/18/24 0338 WBC 14.5* HGB 7.7* HCT 24.7* PLTCOUNT 330 No results for input(s): INR in the last 00838 hours. VITALS/MENTAL STATUS/NOTIBLE EXAM FINDINGS Most recent weight: Weight: (!) 183.9 kg (405 lb 6.4 oz) (05/13/243) BP 115/73 (BP Location: Left arm, Patient Position: Sitting) Pulse 94 Temp 98.4 ??F (36.9 ??C) (Oral) Resp 23 Ht 2.007 m (6' 7 ) Wt (!) 183.9 kg (405 lb 6.4 oz) SpO2 95% Exam: GEN No acute distress. HEENT MMM. Sclera anicteric. CHEST CTA&P B HEART RRR, systolic murmur ABD Soft, NT, +BS. EXT No edema. Left foot with wound VAC in place NEURO Alert, oriented x 3, appropriately interactive. DISCHARGE MEDICATIONS AND ALLERGIES This list of medications is preliminary and tentative: please see the Patient Discharge Instructions for patients discharged home or the Facility Transfer Order for the final and accurate medication list. Current Discharge Medication List START taking these medications Instructions Authorizing Provider artificial tears ophthalmic ointment Instill into both eyes every 8 hours Tereza Mcpherson MD cefTRIAXone 2 g 2,000 mg in 0.9% NaCl IV 0.9 % 50 mL 2,000 (two thousand) mg by Intravenous route every 24 hours for 30 days Last dose 06/25/2024 Tereza Mcpherson MD chlorhexidine 0.12 % solution Commonly known as: Peridex 15 mL by Mouth/Throat route 2 times daily Tereza Mcpherson MD cyclobenzaprine 5 MG tablet Commonly known as: Flexeril Take 1 (one) tablet by mouth 3 times daily as needed Tereza Mcpherson MD metroNIDAZOLE 500 MG tablet Commonly known as: Flagyl Take 1 (one) tablet by mouth every 8 hours for 30 days Last dose 06/25/2024 Tereza Mcpherson MD Nutritional Supplement Liqd Take 1 packet by mouth 2 times daily for 28 days Pt encouraged to continue with Bao BID for 28 days post discharge to optimize healing. Bao can be purchased at [facility] located across from [facility] ([address] [place] [address]) for a reduced cost. supervisor soakers is encouraged to prevent delivery fees, but if this isn't feasible it can be delivered to the home by calling [phone]. Zana Tolentino MD polyethylene glycol 3350 17 g packet Commonly known as: Miralax Start taking on: May 27, 2024 Take 17 (seventeen) g by mouth once daily Tereza Mcpherson MD CONTINUE taking these medications which have CHANGED Instructions Authorizing Provider atorvastatin 40 MG tablet What changed: medication strength how much to take Commonly known as: Lipitor Take 1 (one) tablet by mouth at bedtime Tereza Mcpherson MD buPROPion SR 12hr 150 MG tablet What changed: Another medication with the same name was removed. Continue taking this medication, and follow the directions you see here. Commonly known as: Wellbutrin-SR Take 1 (one) tablet by mouth 2 times daily metFORMIN 500 MG tablet What changed: Another medication with the same name was removed. Continue taking this medication, and follow the directions you see here. Commonly known as: Glucophage Take 1 (one) tablet by mouth 2 times daily with morning and evening meal vitamin D (ergocalciferol) 1.25 MG (16646 UT) capsule What changed: Another medication with the same name was removed. Continue taking this medication, and follow the directions you see here. Commonly known as: Drisdol Take 1 (one) capsule by mouth every 7 days Takes on thursday CONTINUE taking these medications which have NOT CHANGED Instructions Authorizing Provider acetaminophen 500 MG tablet Commonly known as: Tylenol Take 1 (one) tablet by mouth every 6 hours as needed Alcohol Prep Pads ferrous sulfate 325 (65 FE) MG tablet Take 1 (one) tablet by mouth daily with breakfast gabapentin 300 MG capsule Commonly known as: Neurontin Quantity Dispensed: 270 capsule Take 1 (one) capsule by mouth 3 times daily HUMBLE Sterling insulin lispro 100 UNIT/ML pen Commonly known as: HumaLOG;ADMelog Inject 10 (ten) Units subcutaneously 3 times daily before meals Lantus SoloStar pen Generic drug: insulin glargine Inject 20 (twenty) Units subcutaneously at bedtime Mounjaro 5 MG/0.5ML injection Generic drug: tirzepatide Inject 5 (five) mg subcutaneously every 7 days ONETOUCH DELICA PLUS 33G EXTRA FINE LANCET pantoprazole EC 40 MG tablet Commonly known as: Protonix tamsulosin 0.4 MG capsule Commonly known as: Flomax Quantity Dispensed: 90 capsule Take 1 (one) capsule by mouth once daily At the same time every day after a meal. Cassandra Moore, SPECIMEN COLLECTOR-POLICE JUDGE TRUEplus Pen Rentz 31G X 5 MM needle Generic drug: insulin pen needle STOP taking these medications amLODIPine 5 MG tablet Commonly known as: Norvasc calcium carbonate 1250 (500 Ca) MG tablet Commonly known as: Os-Wilfredo 500 cephalexin 500 MG capsule Commonly known as: Keflex Cholecalciferol 1.25 MG (94156 UT) famotidine 40 MG tablet Commonly known as: Pepcid furosemide 20 MG tablet Commonly known as: Lasix losartan 25 MG tablet Commonly known as: Cozaar oyster shell calcium 500 MG tablet Trulicity 1.5 MG/0.5ML Sopn Generic drug: Dulaglutide ALLERGIES: No Known Allergies DISCHARGE INSTRUCTIONS Contact information for other follow-up providers Follow up instructions Next Steps: Follow up The next time you are scheduled to see your doctor, please discuss that you might be having difficulty with breathing while you sleep. Your doctor can then advise if more evaluation is needed. Nguyễn Bingham MD Specialty: Family Medicine Relationship: PCP - General [address] [facility] [address] [facility] [address] Next Steps: Follow up Our records show your Primary Care Provider (PCP) is Nguyễn Bingham MD. Follow Up Instructions for Patient: Within 5 Days from Discharge Abby Quinn DPM Specialty: Podiatry [address] [facility] [address] [facility] [address] Next Steps: Follow up Follow Up Instructions for Patient: Within 5-10 Days from Discharge Hattie Liao MD Specialty: Infectious Disease, Internal Medicine [address] [facility] [address] [place] [id number] Next Steps: Follow up Follow Up Instructions for Patient: Within 5-10 Days from Discharge Contact information for after-discharge care Destination [address] [facility] [address] ISOLATION PRECAUTIONS No active isolations. Isolation due to No active infections. I spent 35 minutes in addition to direct patient care summarizing this patient's hospital stay, reviewing and updating the inpatient problem list, reviewing discharge medications, instructions, discussing discharge care planand discharge follow up labs/studies/doctor visits with the patient and or POA/family. Tereza Mcpherson MD MENT SETTER HELPER documented in this encounter Discharge Instructions * Discharge Instructions* Tereza Mcpherson MD - 05/17/2024 3:41 PM MONUMENT SETTER HELPER Images from the original note were not included. Please obtain weekly CBC, CMP, UA and sed rate and send results to Dr. Hattie Liao at fax number:[phone] Social Security Disability Assistance *These 2 agencies help individuals try and succeed in getting SSD. That is all they do. Very good resource to try, especially if you've been denied SSD in the past. Buy.On.Social. Mention Code [employer]SM for a discounted rate. [phone] ext: 222 or www.[employer] [phone] or www.[employer] There are 3 ways to apply for SSD in [place]. You can call the main [facility] phone line for help at [phone] or schedule an appt with your local [facility] office (/gzikug-irwwqgzw-weeuhexyxp-locations/[place]), or complete an application (http://www.CARGOBR.gov/pgm/disability.htm). If you need help finding your local [facility] office call the number above or go to (https://secure.CARGOBR.gov/apps6z/DIMITRIOS/fo001.jsp). To look into [facility] home care for your mother you can call Justina [phone] To look into Private Duty Services: for the Older [place] people: [place]: Senior Services Dept of Aging - They will provide the first 2 weeks free Homemaker services 5 days a week 5 hours a day then Pt will have to private pay. [facility] [place] ([facility]) [phone]; . [facility] [place] ([place]) [phone]; Community Care Program Agency [facility] ([facility]) [phone]; [facility] ([facility]): [phone] [place] does have a program for younger people to help with services in the home. https://wr.dhs.[place].gov/wrpublic/wr/dynamic/referral.jsf Help thru the [place] Chapter in your area for your mother. Contact them norris: Contact Information Physical Address [address] [facility], [address] [place]ym [place]razo [place] [id number] Address [address] [place] [id number] Number You have been enrolled in [facility] [employer]'s Bread Basket Program. Please show this to the attendant at the [facility] and they will provide you with bag(s) of nonperishable food when you discharge and are heading home. The Gift Shop is open Thursday- 8am - 4pm and Thursday 7am - 3pm. 05/23/24: DIPIKA Jeffers Us referral for [facility] foodbank program. www.[facility].org or call [phone]. IDHS/ISHAAN Empowering People with Disabilities through Home Services-call number below if you do go back home so you can be assessed for possible tear down worker to come in and help YOU at home with cooking, cleaning, laundry, errands, etc... The [place] Department of Human Services' Division of Rehabilitation Services (IDHS/DRS) is the state's lead agency serving persons with disabilities. Our staff work one-on-one with individuals who have disabilities and their families to empower them to reach their employment, education, and independent living goals. Through the Home Services Program, DRS provides services to individuals with the most significant disabilities so they can remain in their homes and live as independently as possible. Our customers are empowered to live self-directed lives, be actively involved in their communities, and retain control over the ervices they receive. The following services can enable individuals with disabilities to remain at home: Individual Provider (IP): Provides assistance with household tasks, personal care and, with permission of a doctor, certain health care procedures. IPs are selected, employed and supervised by the individual customer. As part of this service, background checks can be obtained on any IP hired by [facility]. Homemaker Services: Agency-based services for personal care and household tasks provided by trainedand professionally supervised staff. Home Health Services: ACCOUNT PROCESSOR, PLANNING INTERN care program director services prescribed by the physician to meet the health, safety, and medical needs of the customer. Speech, physical, and occupational therapies may also be available. Electronic Home Response: A rented device to provide 24 hour access to emergency personnel in an emergency situation within the home. Home Delivered Meals: Nutritious meals prepared and delivered to customers' homes through a varietyof community-based service providers. Adult Day Care: The direct care and supervision of customers in a community- based setting for the purpose of promoting social, physical, and emotional well-being. Assistive Equipment: Devices or equipment purchased, repaired or rented to promote independence, prevent an increase in care, reduce or eliminate another service or ensure the customers' health and safety in the home. Environmental Modifications: Structural changes within the home environment or exterior for accessibility needs that enhance customer independence, prevent an increase in care, reduce or eliminate another service or ensure the customers' health and safety in the home. Respite Services: Temporary care for adults and children with disabilities to relieve stress to families. Respite services may be provided for vacation, rest, errands, family crisis or emergency. Services may include personal caregiver, adult day care, homemaker or home health. Brain Injury (BI) Behavioral/Cognitive: Remedial therapies provided to persons with brain injuries to decrease severe maladaptive behaviors. These services are intended to enable customers to better manage their behavior and be more capable of living independently. Brain Injury (BI) Habilitation: Services provided to persons with brain injuries that assist with the acquisition, retention, or improvement in self-help, socialization and adaptive skills. These services are provided in a setting separate from the customers' residence. Brain Injury (BI) Pre-Vocational Services: Services provided to persons with brain injuries that prepare them for paid or unpaid employment by teaching concepts such as compliance, attendance, task completion, problem solving and safety. Brain Injury (BI) Supported Employment: Services provided to persons with brain injuries for whom competitive employment is unlikely. These services include intensive ongoing support to enable the persons to perform in a paid employment work setting. Community Reintegration: In conjunction with Centers for Independent Living, provides eligible persons who reside in a [facility] the opportunity for integrated independent community living throughself-directed, cost effective options. To receive services, an individual must meet these eligibility criteria: Be under age 60 at the time of application unless in the AIDS or Brain Injury Medicaid Waiver Program. Have a significant disability lasting 12 months or longer, or for the duration of life. Be at imminent risk of nursing facility placement. Have applied, cooperated and obtained a decision on Medicaid eligibility unless already on Medicaidor spend-down. Require services in the home costing the same or less than nursing facility costs. Be a [facility] resident with [place] citizenship or show proof of legal entry into the [place]. Have assets under the asset limit which is different for individuals under age 18 and those 18 and older. Score the required points on the Determination of Need (DON). Home Service Program staff will: Visit the person at home to discuss eligibility and available services. Complete application and conduct financial and non-financial eligibility assessments. Obtain needed releases of information for medical documentation. Obtain a clear and easily identifiable copy of the customer's [facility] Photo ID or valid Drivers License. Develop a person-centered service plan and assist in locating service providers. Provide alternative resource information and information on appeal rights if eligibility is not met. For more information: Call or visit your [place] Department of Human Services' Division of Rehabilitation Services Office. If you have questions about any [place] Department of Human Services (IDHS) program, you may call the automated helpline 24 hours a day at: (TTY) You may speak to a player services representative between: 8:00 a.m. - 5:30 p.m. Thursday - Thursday (except state holidays) For answers to your questions, you may also write: [place] Department of Human Services Office of Customer Support [address] [place] [phone] Visit our website at: www.[facility].formerly [facility].hi. Latanya LINDSEY, MPH, [facility] [phone] MENT SETTER HELPER documented in this encounter Medications at Time of Discharge Medication Sig Dispensed Refills Start Date End Date acetaminophen (Tylenol) 500 MG tablet Take 1 (one) tablet by mouth every 6 hours as needed Alcohol Swabs (Alcohol Prep) PADS 04/16/2023 artificial tears ophthalmic ointment Instill into both eyes every 8 hours 05/26/2024 atorvastatin (Lipitor) 40 MG tablet Take 1 (one) tablet by mouth at bedtime 05/26/2024 buPROPion SR 12hr (Wellbutrin-SR) 150 MG tablet Take 1 (one) tablet by mouth 2 times daily cefTRIAXone 2 g 2,000 mg in 0.9% NaCl IV 0.9 % 50 mL 2,000 (two thousand) mg by Intravenous route every 24 hours for 30 days Last dose 06/25/2024 05/26/2024 06/25/2024 chlorhexidine (Peridex) 0.12 % solution 15 mL by Mouth/Throat route 2 times daily 05/26/2024 cyclobenzaprine (Flexeril) 5 MG tablet Take 1 (one) tablet by mouth 3 times daily as needed 05/26/2024 ferrous sulfate 325 (65 FE) MG tablet Take 1 (one) tablet by mouth daily with breakfast 06/02/2023 gabapentin (Neurontin) 300 MG capsuleIndications: Diabetic peripheral autonomic neuropathy (HCC) Take 1 (one) capsule by mouth 3 times daily 270 capsule 3 10/12/2023 insulin lispro (HumaLOG;ADMelog) 100 UNIT/ML pen Inject 10 (ten) Units subcutaneously 3 times daily before meals 06/17/2023 Lancets (ONETOUCH DELICA PLUS 33G EXTRA FINE LANCET) 04/14/2023 Lantus SoloStar pen Inject 20 (twenty) Units subcutaneously at bedtime 05/22/2023 metFORMIN (Glucophage) 500 MG tablet Take 1 (one) tablet by mouth 2 times daily with morning and evening meal metroNIDAZOLE (Flagyl) 500 MG tablet Take 1 (one) tablet by mouth every 8 hours for 30 days Last dose 06/25/2024 05/26/2024 06/25/2024 Nutritional Supplement LIQD Take 1 packet by mouth 2 times daily for 28 days Pt encouraged to continue with Bao BID for 28 days post discharge to optimize healing. Bao can be purchased at [facility] located across from [facility] ([address] [place] [address]) for a reduced cost. supervisor soakers is encouraged to prevent delivery fees, but if this isn't feasible it can be delivered to the home by calling [phone]. 05/16/2024 06/13/2024 pantoprazole EC (Protonix) 40 MG tablet 07/02/2023 polyethylene glycol 3350 (Miralax) 17 g packet Take 17 (seventeen) g by mouth once daily 05/27/2024 tamsulosin (Flomax) 0.4 MG capsule Take 1 (one) capsule by mouth once daily At the same time every day after a meal. 90 capsule 4 07/16/2023 tirzepatide (Mounjaro) 5 MG/0.5ML injection Inject 5 (five) mg subcutaneously every 7 days TRUEplus Pen Rentz 31G X 5 MM needle 06/19/2023 vitamin D, ergocalciferol, (Drisdol) 1.25 MG (48494 UT) capsule Take 1 (one) capsule by mouth every 7 days Takes on thursday documented as of this encounter Progress Notes * Rio Schmitz RN - 05/26/2024 1:04 PM CST Pt discharged to [facility]. Pt unhooked from wound vac, and wound vac supplies returned. Wet to dry dressing in place. Pt's belonging gathered and given to EMS. [facility] MENT SETTER HELPER * Rio Schmitz RN - 05/26/2024 11:07 AM CST Report called to [facility]. Report given to Jesica. MENT SETTER HELPER * Latanya Sims LCSW - 05/26/2024 8:29 AM CST Facility Transfer Note Level of Care: Skilled Rehab Payor Source: Managed Medicaid [facility] Facility Name: (include name of person confirming admission): [facility]. Nina/admissions [phone] [place] Made Aware of Special Needs (if applicable): Yes; bariatric. Low air loss mattress, bariatric bed, bariatric BSC, bariatric walker, etc. May decide to d/c to [facility] after SNF so he and his mother can both move into [facility]. She is already there respite. RN Call Report to: [phone] going to room 103 RN Fax D/C Orders to: [phone] Transportation: [employer] ; Trip # [id number] 10 am bulk picker Certificate of Medical Necessity rationale: infected diabetic left foot ulcer, wound vac, IV, osteomyelitis of left food, CHRISTIE, ARF, DMII, HTN, Anemia, Anxiety, Depression, Diabetic neuropathy, GERD BPH, bariatric, high fall risk, weak and debilitated. Date/time of transfer: 05/26/24; bulk picker at noon Accepting MD: Dr. Miki Anand Completed and Signed [id number] (if applicable): not applicable Family/Other Notified of Transfer (name/phone): Extended Emergency Contact Information Primary Emergency Contact: CLARA HYATT Relation: Mother Secondary Emergency Contact: unknown(friend/pharmacist)Monse Mobile Relation: None *Patient is aware of d/c today to [facility] with bulk picker around noon. Authorization Skilled Care: Authorization for Transportation: Comments: SW added numerous resources to AVS for patient upon d/c. He is aware. Latanya Sims LCSW 05/26/2024 8:29 AM Extensions: [phone] MENT SETTER HELPER * Kang Sanders RN - 05/25/2024 10:48 PM CST Problem: Pain/Discomfort Goal: Patient exhibits reduced pain/discomfort as evidenced by pain scores Outcome: Progressing Problem: Fall Risk Goal: Fall risk and fall related injury risk are minimized (interventions related to the fall risk can be found in the flowsheet documentation) Outcome: Progressing Problem: Pain/Discomfort Goal: Patient verbalizes acceptable level of pain relief and ability to engage in desired activity. Outcome: Progressing Problem: Nutrient: Increased nutrient needs (specify) Goal: Total intake will meet estimated nutrient needs Outcome: Progressing Problem: Hematologic - Adult Goal: Maintains hematologic stability Description: INTERVENTIONS: Outcome: Progressing Problem: Skin/Tissue Integrity - Adult Goal: Skin integrity remains intact Description: INTERVENTIONS: Outcome: Progressing Problem: Skin/Tissue Integrity - Adult Goal: Oral mucous membranes remain intact Description: INTERVENTIONS: Outcome: Progressing Problem: Skin/Tissue Integrity - Adult Goal: Incisions, wounds, or drain sites healing without S/S of infection Description: INFECTIONS: Outcome: Progressing Problem: Mobility Goal: STG - Patient will ambulate Description: X 10 ft with ww mod indep PWB L LE forefoot Outcome: Progressing MENT SETTER HELPER * Christie Vasquez OT - 05/25/2024 3:16 PM CST Occupational Therapy Treatment Summary Chart reviewed for diagnosis and medical systems review. Nursing consented for OT. Explained purpose of OT and patient consented to participate in therapy. Admitted; 1. Ulcer of left foot with other severity ([facility]) 2. CHRISTIE (acute kidney injury) ([facility]) 3. Left foot infection 4. Diagnosis unknown PPE worn by staff: gloves PPE worn by patient: gown - patient, clean;socks - clean RECOMMENDATIONS/PLAN: Patient would benefit from continued skilled OT services during hospitalization Discharge OT Discharge Recommendations: Patient would benefit from multidisciplinary therapy PPE worn by staff: gloves PPE worn by patient: gown - patient, clean;socks - clean AM-PAC Daily Activity score for this patient is Daily Activity Raw Score:: 15 Precautions: Fall / Alarm / Partial weight bearing L LE SUBJECTIVE: I just really miss my cats! Psychosocial: Calm; cooperative Pt's goal for therapy: ADL / OOB activity OBJECTIVE: Pain: No reports of pain Functional Mobility: Bed Mobility: Supine to Sit: Activity Does Not Occur Sit to Supine: Activity Does Not Occur Transfers: Sit to Stand: Supervision Stand to Sit: Supervision Toilet Transfers: Stand By Assist ADL Tasks: (Through observation and using clinical judgement) Oral Facial Hygiene: Stand By Assist (performed hand hygiene while standing with SBA to increase safety with standing balance) Bathing: Activity Does Not Occur Upper Body Dressing: Minimal Assistance (min A to adjust gown while standing) Lower Body Dressing: Maximal Assistance (max A to don socks) Toileting: Stand By Assist (performed all aspects of toileting with SBA) Activity Tolerance/Vital Signs: Activity Tolerance: Requires rest breaks;Requires seated rest breaks;Requires standing rest breaks BP: 122/78 (after functional mobility) ASSESSMENT: Patient in the bathroom upon the arrival of OT. Pt is pleasant and agreeable to session. A co-treatwas performed with Physical Therapy to optimize patient performance and outcomes as patient has poor activity tolerance, difficulty with adhering to weight bearing restrictions, and requires assist of a second skilled clinician due to complex mobility needs. The co-treatment benefits the patient byproviding quality treatments through interdisciplinary methods. PT facilitates functional mobility and transfers while OT engaged patient in ADLs, energy conservation techniques, and safety. Pt completed sit <> stand with SPV. Pt amb in the room with SBA and FWW / gait belt. ADL assessment was performed; re. Grooming, UE dressing, LE dressing, and toileting. Requiring the amount of assistance as noted above. Patient tolerated session fairly this date. Pt is limited during therapy session 2/2 deconditioning, fatigue, and weakness. Pt in the chair at the end of session with call light andphone in reach with alarm on. All needs were met prior to therapist leaving the room. All lines, monitors, IV's, equipment in place and intact pre and post visit. RN, notified of patient's performance/location end of session. Educated patient/family in OT role/plan, ADL, functional transfer/mobility, dc plan Mobility Status-White Board Mobility Status Communication-White Board Updated?: Yes Please refer to the Filed Flowsheet OT Treatment for further details. Refer to care plan for goals. If this is the last Occupational Therapy visit, this serves as the discharge summary. [id number] MENT SETTER HELPER * Naima Foster, PT - 05/25/2024 2:56 PM CST Physical Therapy Treatment Summary Chart review completed. Nursing consented for PT. Explained purpose of PT and patient consented to participate in therapy. Admitting Diagnosis: 1. Ulcer of left foot with other severity (HCC) 2. CHRISTIE (acute kidney injury) ([facility]) 3. Left foot infection 4. Diagnosis unknown RECOMMENDATIONS/PLAN: Discharge PT Discharge Recommendations: Patient would benefit from multidisciplinary therapy PPE worn by staff: gloves PPE worn by patient: gown - patient, clean;socks - clean AM-PAC Basic mobility score for this patient is Mobility Raw Score:: 17 SUBJECTIVE: Nursing consents for PT. Patient found alert and agreeable to participate in therapy. I might need help up from the toilet Patient's Goal for the Day: to increase strength and improve independence Pain Assessment: OBJECTIVE: Precautions: Fall Risk Bed Mobility: Supine to Sit: Activity Does Not Occur Sit to Supine: Activity Does Not Occur Transfers: Sit to Stand: Supervision Stand to Sit: Supervision Mobility: Distance Ambulated (ft): 10 FEET (+20 with seated rest break) Ambulation: Assistive Device: Gait Belt;Walker-Bariatric Ambulation: Level of Assistance: Stand By Assist;Requires Verbal Cues for Safety;Requires Verbal Cues for Technique Ambulation: Gait Deviations: Step Length - Decreased;Increased Weight Bearing through Upper Extremity Weight Bearing Status-LLE: (partial WB through L forefoot with walker) Activity Tolerance and O2 Requirements: Activity Tolerance: Requires seated rest breaks Vital Signs: BP: 122/78 (seated after mobiliy) ASSESSMENT: Pt found alert and agreeable to PT evaluation this date. Patient seen for PT and OT co-treatment d/t requiring assist of 2 skilled therapists to maximize safety and participation in simultaneous functional mobility and ADLs. Overall, exhibiting fair tolerance to OOB mobility. He is making progress towards functional goals.However, this pt continues to demonstrate decreased strength, balance, and endurance impairing safety and independence with functional mobility such as transfers/ambulation. They will benefit from skilled PT intervention during acute stay to improve above listed deficits with the goal to increase independence, decreased burden of care, and return to prior level of function. Following completion of session, the patient is positioned for comfort in the recliner with call light and phone within reach. All lines, monitors, IV's, equipment in place and intact pre and post visit. Nurse informed about today's treatment session. Refer to Plan of Care for PT goals. Please refer to Filed Flowsheet PT Evaluation for further details. If this is the last PT visit, this note serves as the discharge summary. BRYNN Mcnamara x [phone] MENT SETTER HELPER * Christel Barcenas RN - 05/25/2024 2:49 PM CST Care Coordination Progress Note Expected Discharge Date: 05/26/2024 Discharge Plan: SNF at [facility]. Medically stable for DC. SW following for placement. Facility able to accept 05/26 10am. Family Support (Name and Phone): Extended Emergency Contact Information Primary Emergency Contact: CLARA HYATT Relation: Mother Secondary Emergency Contact: unknown(friend/pharmacist)Monse Unda Relation: None Transportation at Discharge: (cab or ambulance): READMISSION RISK SCORE is 11 at 2:49 PM 05/25/2024.: Name: Christel Barcenas RN Case Manager MENT SETTER HELPER * Latanya Sims LEAD APPLIER - 05/25/2024 1:56 PM CST Facility Transfer Note Level of Care: Skilled Rehab Payor Source: Managed Medicaid [facility] Facility Name: (include name of person confirming admission): [facility]. Nina/admissions [phone] [place] Made Aware of Special Needs (if applicable): Yes; bariatric. Low air loss mattress, bariatric bed, bariatric BSC, bariatric walker, etc. May decide to d/c to [facility] after SNF so he and his mother can both move into [facility]. She is already there respite. RN Call Report to: [phone] going to room 103 RN Fax D/C Orders to: [phone] Transportation: CLAIRE ; Trip # [id number] 10 am bulk picker Certificate of Medical Necessity rationale: infected diabetic left foot ulcer, wound vac, IV, osteomyelitis of left food, CHRISTIE, ARF, DMII, HTN, Anemia, Anxiety, Depression, Diabetic neuropathy, GERD BPH, bariatric, high fall risk, weak and debilitated. Date/time of transfer: 05/26/24; bulk picker at 10am Accepting MD: HADLEY Completed and Signed [id number] (if applicable): not applicable Family/Other Notified of Transfer (name/phone): Extended Emergency Contact Information Primary Emergency Contact: CLARA HYATT Relation: Mother Secondary Emergency Contact: unknown(friend/pharmacist)Monse Mobile Relation: None *Patient is aware of d/c tomorrow morning to SNF Authorization Skilled Care: Authorization for Transportation: Comments: SW added numerous resources to AVS for patient upon d/c. He is aware. Latanya Sims LCSW, LEATHER PIECE INSPECTOR, MPH Extensions: [phone] or [phone] MENT SETTER HELPER * Abby Quinn DPM - 05/25/2024 1:40 PM CST Admit Date: 05/13/2024 4:58 PM Hospital Day: 12 Name: Rene Hyatt Date: 05/25/2024 Medical Doctor: Nguyễn Bingham MD CC: Patient is seen at bedside for follow up for infection, and open ulceration left foot. HPI: Patient is S/P Surgical debridement of left foot wound with biopsy. Patient underwent surgical debridement on 05/15/24. Patient denies n/v/f/c, sob this am. The wound has been treated with Ceftriaxone and metronidazole, General: Alert and oriented x 3 Family History: No family history on file. Data Vitals: 05/24/24 2304 05/25/24 0456 05/25/24 0824 05/25/24 1133 BP: 144/84 119/80 146/82 143/85 Pulse: 94 98 96 96 Resp: 16 16 Temp: 98.6 ??F (37 ??C) 98.3 ??F (36.8 ??C) 98.3 ??F (36.8 ??C) 98.5 ??F (36.9 ??C) SpO2: 98% 97% 95% 96% Weight: Height: Temp (30hrs) Max:98.9 ??F (37.2 ??C) Filed Wts: 05/13/24 2213 Weight: (!) 183.9 kg (405 lb 6.4 oz) MEDICATIONS FOR CURRENT ENCOUNTER: SCHEDULED MEDICATIONS: 0.9% NaCl injection 10-40 mL, Intracatheter, q8h artificial tears ophthalmic ointment, Each Eye, q8h atorvastatin (Lipitor) tablet 40 mg, Oral, AT BEDTIME buPROPion XL 24hr (Wellbutrin-XL) tablet 150 mg, Oral, QDAY cefTRIAXone (Rocephin) 2,000 mg in 0.9% NaCl IV 50 mL IVPB, Intravenous, q24h chlorhexidine (Peridex) 0.12 % oral solution 15 mL, Mouth/Throat, BID ferrous sulfate tablet 325 mg, Oral, QDAY AFTER LUNCH gabapentin (Neurontin) capsule 300 mg, Oral, TID heparin injection 7,500 Units, Subcutaneous, q8h insulin aspart (NovoLOG) pen 0-4 Units, Subcutaneous, AT BEDTIME insulin aspart (NovoLOG) pen 0-6 Units, Subcutaneous, TID WC insulin aspart (NovoLOG) pen 15 Units, Subcutaneous, TID WC insulin glargine (Lantus) pen 24 Units, Subcutaneous, AT BEDTIME metroNIDAZOLE (Flagyl) tablet 500 mg, Oral, q8h pantoprazole EC (Protonix) tablet 40 mg, Oral, QDAY polyethylene glycol 3350 (Miralax) packet 17 g, Oral, QDAY tamsulosin (Flomax) capsule 0.4 mg, Oral, QDAY [COMPLETED] alteplase (Cathflo Activase) injection 2 mg, Intravenous, Once [COMPLETED] heparin lock flush injection 250 Units, Intracatheter, Once CONTINUOUS MEDICATIONS: 0.9% NaCl flush bag, Intravenous, CONTINUOUS PRN PRN MEDICATIONS: Or Or 0.9% NaCl flush bag, Intravenous, CONTINUOUS PRN 0.9% NaCl injection 10-40 mL, Intracatheter, PRN acetaminophen (Tylenol) tablet 650 mg, Oral, q6h PRN benzonatate (Tessalon) capsule 100 mg, Oral, TID PRN cyclobenzaprine (Flexeril) tablet 5 mg, Oral, TID PRN dextrose 10 % IV bolus, Intravenous, PRN dextrose 10 % IV bolus, Intravenous, PRN glucagon (Glucagen) injection 1 mg, Subcutaneous, PRN glucose (Diabetic Use) oral gel, Oral, PRN HYDROcodone-acetaminophen (Opal) 5-325 MG tablet 1 tablet, Oral, q4h PRN ondansetron (Zofran) injection 4 mg, Intravenous, q6h PRN Recent Labs Component Name 05/18/24 0338 05/17/24 0946 05/16/24 0309 WBC 14.5* 15.5* 21.7* HGB 7.7* 7.1* 7.3* HCT 24.7* 23.2* 23.6* PLTCOUNT 330 284 300 Recent Labs Component Name 05/24/24 0508 05/13/24 1830 09/17/23 1247 SODIUM 140 - - POTASSIUM 4.3 - 3.8 CHLORIDE 111* - - CO2 23 - 26 BUN 26* - 18 CREATININE 1.33* - 0.75 GLUCOSE 123* - 119* CALCIUM 8.9 - 9.6 ALBUMIN 2.0* - - ALKPHOS - - 84 ALT - - 11 AST - - 12 EGFR 68* - >90 - = values in this interval not displayed. No results for input(s): INR in the last 94799 hours. No results for input(s): PT in the last 22858 hours. No results for input(s): PTT in the last 71118 hours. GENERAL: Conversant; NAD PSYCHE: Alert and oriented to person, place, and time. Appropriate affect noted. EYES: PERRLA; No scleral icterus. Conjuctiva moist NECK: Supple; no masses. Trachea midline. No thyromegaly Vitals Patient Vitals for the past 6 hrs: Temp Pulse Resp BP BP Method 05/24/24 1534 98.9 ??F (37.2 ??C) 87 18 132/75 Automatic 05/24/24 1231 98.2 ??F (36.8 ??C) 101 18 129/66 Automatic Dressings are c/d/I, no strikethrough Previous exam: Lower extremity VASCULAR: Dorsalis pedis pulses: Right 0/4 Left 0/4 Posterior tibial pulses: Right 0/4 Left 0/4 Patient shows: decreased hair growth thin atrophic skin No edema noted bilaterally LYMPHATICS: Lymphedema is noted bilaterally. No painful popliteal or inguinal nodes DERMATOLOGIC: Skin color and texture are: Ulceration located: Left foot There is a large open ulceration noted to the plantar aspect of left foot with granular wound base with graft intact. There continues to be franchesca wound erythema noted extending proximally to left calf. There is moderate serous drainage noted. There is no malodor noted. Size 15.0cmx 15.0cm x 2.5cm NEUROLOGIC: Protective Sensation is absent with 5.07 SWMF bilaterally at toes and MPJ levels Patient can not distinguish between sharp and dull. Proprioception is intact. MUSCULO: Manual Muscle strength is diminsihed in the anterior and posterior muscle groups bilateral feet andlower limbs. Blood Culture: Wound Culture: Arterial Doppler: SUMMARY: No evidence for significant arterial insufficiency of either the right or left lower extremity at rest. Bilateral digital tracings are pulsatile. Gerry Garcia MD, [facility], Vascular & Interventional radiologist, reviewed the images and reported the study. FINDINGS: Procedure: The arterial vasculature of the lower extremities was evaluated by analysis of Doppler pressures and waveforms obtained in the legs at rest. Study Quality: This study is of adequate technical quality. Doppler Waveforms: Right Left Common Fem Triphasic Triphasic Popliteal Triphasic Triphasic Posterior Tibial Triphasic Triphasic Dorsalis Pedis Triphasic Triphasic Culture Bone calcaneus Left 05/15/24 Collected 05/15/2024 16:33 Status: Preliminary result Visible to patient: No (not released) Dx: Left foot infection Specimen Information: Foot; Microbiology 0 Result Notes Culture Heavy Morganella morganii Critical Heavy Streptococcus agalactiae (Group B) Critical Rare Proteus vulgaris Critical Susceptibility testing of penicillin, other beta-lactam antibiotics, and vancomycin is not necessary for beta-hemolytic streptococci groups A,B,C and G because resistant strains have not been recognized. Surgical Description: Calcaneus Bone Left Foot Culture wound Left foot 05/15/24 Collected 05/15/2024 16:34 Status: Preliminary result Visible to patient: No (not released) Dx: Left foot infection Specimen Information: Foot; Microbiology 0 Result Notes Culture Rare Streptococcus agalactiae (Group B) Critical Susceptibility testing of penicillin, other beta-lactam antibiotics, and vancomycin is not necessary for beta-hemolytic streptococci groups A,B,C and G because resistant strains have not been recognized. Surgical Description: Left Foot Pathology: Biopsy taken 05/15/24. Final Diagnosis Bone, left calcaneus, debridement - Focal acute osteomyelitis Patient Glucose Bedside (mg/dL) in the past 24 hrs: 05/24/24 1712, Glucose Bedside (mg/dL):174 mg/dL 05/24/24 1944, Glucose Bedside (mg/dL):167 mg/dL 05/25/24 0813, Glucose Bedside (mg/dL):119 mg/dL 05/25/24 1133, Glucose Bedside (mg/dL):146 mg/dL ASSESSEMENT: 1. Surgical Debridement of left foot wound including bone biopsy 2. Infection left foot 3. Osteomyelitis left foot 4. Diabetic neuropathic ulceration - 5. PVD 6. Neuropathy 7. Diabetes Infection left foot/ Osteomyelitis left foot - Ceftriaxone 2,000mg every 24 hours - Metronidazole 500mg every 8 hours - Labs reviewed - ID/ IM to determine senior software tester Antibiotic therapy. S/P Surgical Debridement of left foot wound including bone biopsy Diabetic neuropathic ulceration left foot - Dressing instructions: Continue to cover wound base with mepitel. Apply negative pressure device to left foot wounds at 125mmhg continuous. Change dressing three times per day. - Weight bearing: Ambulate Partial weight bearing through left forefoot with walker. Neuropathy/ Type II Diabetes - Monitor blood glucose - Internal medicine following PLAN: Wound is stable. Culture and pathology results noted. Infectious disease on case. Antibiotic therapy per ID. Continue Negative pressure device left foot. Weight bearing: Ambulate partial weight bearing through left forefoot with walker. Will continue to follow while hospitalized. Patient should follow in the wound center with me here at [facility] or with his home Print Graphic Designer/ wound care physician within 2 weeks of discharge. Patient is at high risk for limb loss. MENT SETTER HELPER * Latanya Sims LCSW - 05/25/2024 1:06 PM CST Social Work Progress Note *medically ready as of 05/23/24. Doctor did not want to do the P2P. Did not feel patient was a candidate for AR; therefore, SW continued to work on SNF back up thru his [facility] medicaid. Discharge Plan Disposition: plan is going to be SNF/[facility]. . DIPIKA called [employer] and got the CM email: [email or web address] The rep will request again that Sally reach out to me for d/c planning assistance since she is his CM with [facility]. Ref: [id number]. SW received a call from Sally/[employer] [place]. [phone]. DIPIKA was in the room with cristobal at the time as well. CYNTHIA was not able to provide a HH listing of agencies by him in network, said she doesn't have access to that. I inquired about if SNF is covered and she was unable to answer that as well. Said I would need to call [place] customer service. I asked her about possible tear down worker services for him. She said I can put a request into [employer] over on the [place] side which is like [employer]. She said I can do it online as well. OLIVIA will have to go assess him once he gets back into his home. She stated that she calls him monthly and checks in on him. DIPIKA met with patient and expressed concerned about him even returning home; especially with being his mother's caregiver. He will think about possibly moving into [facility], where she is currently at, after his SNF stay at [facility]. DIPIKA updated Nina/admissions at [facility] about possible plan as well to go directly to [facility] from them once done with SNF. SNF is ordering bariatric bed with low airloss mattress, bariatric beside commode, bariatric walker so he can work with therapy there. Does not need CPAP. Has not worn one since here. DIPIKA asked nursing to set bulk picker for tomorrow at 10am. Transportation: [facility] ambulance can bill [facility] insurance: infected diabetic left foot ulcer, wound vac, IV, osteomyelitis of left food, CHRISTIE, ARF, DMII, HTN, Anemia, Anxiety, Depression, Diabetic neuropathy, GERD BPH, bariatric, high fall risk, weak and debilitated. Anticipated Discharge Date: 05/26/24 Contacts: Extended Emergency Contact Information Primary Emergency Contact: CLARA HYATT Relation: Mother Secondary Emergency Contact: unknown(friend/pharmacist)Monse Mobile Relation: None *Room visit 2x with patient today. Discussed all possible options. HH more than likely not realistic since cannot come daily for IV antibiotics and he needs it daily up to 07/01/24 (tentatively). Nextoption is [facility]. He is open to that but would like to speak with his mother.We called [place] and for activities to call me back norris so he can speak with her. SW asked facility about charger tester for his mother's phone. They found a charger tester for her to use and charged phone and she was able to call and speak with him today. He's going to have to give up his 2 cats, leobardo who is about 10 and bassem who is about 8. He loves them dearly; but he has his pharmacist/friend/Monse who is helping to try and find the cats a new home. She's a pharmacist at [facility] in [place], [place]. He is paying her to go by in the meantime and feed them and provide water, etc. They have never had their shots. While I was in the room he called his bank/[facility] with campaign advisor/Jes. Jes was on speaker phone and sounded very close and concerned about [facility]. [facility] so they know one another well. Apparently, Jes is speaking with some of his coworkers to see if anyone at the [facility] is willing to take the cats. Patient asked for $20,000 to be moved from their money market account to his checking account. Jes will do so, but jes reminded him that there is already $23,000 in the checking. Rene explained that his mother is going to need to stay in [place] at least until Rene is finished with his snf rehab which for now, we know, will go at least until 07/01/24. Jes was very concerned and Rene explained his health issues he's facing. Jes very empathetic and kind. Jes apparently knows Monse from the pharmacy aswell. Cristobal told him that she's looking for a home for the cats too. Patient stated to me that mom has mentioned to him that she should just stay at [facility] and he can come visit her. He really doesn't want to do that; but then he began to talk about how large thehome is and it's too much for him to handle. I told him it sounds like the best plan would be for him to 1. Start by going to SNF at [facility]. While there he can work with their SS worker and look into realtors over there who can maybe help sell their home, etc and he can just move into [place] with his mother. He seemed to like that idea. I explained, if he ever gets better down the road, or if whenever his mother passes, if he's strong enough to move out then he can look into that and get a new accessible apt. Just take one day at a time. Right now working on getting himto the SNF tomorrow with bulk picker around 10am. They are ordering all his DME. SW reminded him of allthe resources that will be on the AVS. Comments: SW spent ~3 hours on Mr. Hyatt and his case today. SW will NOT make a referral to [facility]ORs but added info to AVS in case patient ever decides to go back home he will FOR SURE need to call themto get assessed. Name/Phone number: Latanya Sims LCSW , LEATHER PIECE INSPECTOR, MPH Extensions: [phone] or [phone] MENT SETTER HELPER * Emmanuelle Barragan RN - 05/25/2024 12:58 PM CST New consult placed for traumatic abrasion to scrotum during transfer to commode. Skin with partial thickness skin loss. [place]. Zinc spray applied by nursing which is appropriate. Encouraged patient toprotect skin with proper positioning of his scrotum during transfer and lowering to commode. He verbalized understanding. Continue Zinc spray prn. Routine skin care per nursing. Wound RN will not follow for this issue. Primary RN aware. Emmanuelle Barragan RN 05/25/2024 1:00 PM 05/25/24 1250 Traumatic Wound Single;Abrasion(s) Scrotum Assessment Date/Assessment Time: 05/25/24 1258 Present on admission?: Yes Trauma Type: Single;Abrasion(s) Location: Scrotum Site Assessment [place] Exudate Description Scant;Serosanguinous Dressing/Treatment Open to air;Moisture barrier cream with zinc Dressing Status Not Applicable MENT SETTER HELPER * Chi HoffmanGRETTA - 05/25/2024 12:39 PM CST Name: Rene Hyatt Date: 05/25/24 Medical Doctor: Nguyễn Bingham MD CC: Patient is seen at bedside for follow up for infection, and open ulceration left foot. HPI: Patient is S/P Surgical debridement of left foot wound with biopsy. Patient underwent surgical debridement on 05/15/24. Patient denies n/v/f/c, sob this am. The wound has been treated with Cefepime, and metronidazole, Wound vac has been applied and drainage is noted. No omplaints of pain nor discomfort. Previous exam: Lower extremity VASCULAR: Dorsalis pedis pulses: Right 0/4 Left 0/4 Posterior tibial pulses: Right 0/4 Left 0/4 Patient shows: decreased hair growth thin atrophic skin No edema noted bilaterally LYMPHATICS: Lymphedema is noted bilaterally. No painful popliteal or inguinal nodes DERMATOLOGIC: Skin color and texture are: Ulceration located: Left foot There is a large open ulceration noted to the plantar aspect of left foot with granular wound base with graft intact. There continues to be franchesca wound erythema noted extending proximally to left calf. There is moderate serous drainage noted. There is no malodor noted. Size 15.0cmx 15.0cm x 2.5cm NEUROLOGIC: Protective Sensation is absent with 5.07 SWMF bilaterally at toes and MPJ levels Patient can not distinguish between sharp and dull. Proprioception is intact. MUSCULO: Manual Muscle strength is diminsihed in the anterior and posterior muscle groups bilateral feet andlower limbs. Blood Culture: Wound Culture: Arterial Doppler: SUMMARY: No evidence for significant arterial insufficiency of either the right or left lower extremity at rest. Bilateral digital tracings are pulsatile. Gerry Garcia MD, RPVI, Vascular & Interventional radiologist, reviewed the images and reported the study. FINDINGS: Procedure: The arterial vasculature of the lower extremities was evaluated by analysis of Doppler pressures and waveforms obtained in the legs at rest. Study Quality: This study is of adequate technical quality. Doppler Waveforms: Right Left Common Fem Triphasic Triphasic Popliteal Triphasic Triphasic Posterior Tibial Triphasic Triphasic Dorsalis Pedis Triphasic Triphasic Culture Bone calcaneus Left 05/15/24 Collected 05/15/2024 16:33 Status: Preliminary result Visible to patient: No (not released) Dx: Left foot infection Specimen Information: Foot; Microbiology 0 Result Notes Culture Heavy Morganella morganii Critical Heavy Streptococcus agalactiae (Group B) Critical Rare Proteus vulgaris Critical Susceptibility testing of penicillin, other beta-lactam antibiotics, and vancomycin is not necessary for beta-hemolytic streptococci groups A,B,C and G because resistant strains have not been recogn Culture wound Left foot 05/15/24 Collected 05/15/2024 16:34 Status: Preliminary result Visible to patient: No (not released) Dx: Left foot infection Specimen Information: Foot; Microbiology 0 Result Notes Culture Rare Streptococcus agalactiae (Group B) Critical Susceptibility testing of penicillin, other beta-lactam antibiotics, and vancomycin is not necessary for beta-hemolytic streptococci groups A,B,C and G because resistant strains have not been recognized. Pathology: Biopsy taken 05/15/24. Final Diagnosis Bone, left calcaneus, debridement - Focal acute osteomyelitis Patient Glucose Bedside (mg/dL) in the past 24 hrs: 05/23/24 1955, Glucose Bedside (mg/dL):170 mg/dL 05/24/24 0740, Glucose Bedside (mg/dL):132 mg/dL 05/24/24 1230, Glucose Bedside (mg/dL):167 mg/dL ASSESSEMENT: 1. Surgical Debridement of left foot wound including bone biopsy 2. Infection left foot 3. Osteomyelitis left foot 4. Diabetic neuropathic ulceration - 5. PVD 6. Neuropathy 7. Diabetes Infection left foot/ Osteomyelitis left foot - Cefepime (Maxipime) 2,000mg every 8 hours - Metronidazole 500mg every 8 hours - Labs reviewed - ID/ IM to determine assisted Antibiotic therapy. S/P Surgical Debridement of left foot wound including bone biopsy Diabetic neuropathic ulceration left foot - Dressing instructions: Continue to cover wound base with mepitel. Apply negative pressure device to left foot wounds at 125mmhg continuous. Change dressing three times per day. - Weight bearing: Ambulate Partial weight bearing through left forefoot with walker. Neuropathy/ Type II Diabetes - Monitor blood glucose - Internal medicine following PLAN: Wound is stable. Culture and pathology results noted. Infectious disease on case. Antibiotic therapy per ID. Continue Negative pressure device left foot. Weight bearing: Ambulate partial weight bearing through left forefoot with walker. Pathology: Biopsy taken 05/15/24. Final Diagnosis Bone, left calcaneus, debridement - Focal acute osteomyelitis Patient Glucose Bedside (mg/dL) in the past 24 hrs: 05/23/241954, Glucose Bedside (mg/dL):170 mg/dL 05/24/24 0740, Glucose Bedside (mg/dL):132 mg/dL 05/24/24 1230, Glucose Bedside (mg/dL):167 mg/dL ASSESSEMENT: 1. Surgical Debridement of left foot wound including bone biopsy 2. Infection left foot 3. Osteomyelitis left foot 4. Diabetic neuropathic ulceration - 5. PVD 6. Neuropathy 7. Diabetes Infection left foot/ Osteomyelitis left foot - Cefepime (Maxipime) 2,000mg every 8 hours - Metronidazole 500mg every 8 hours - Labs reviewed - ID/ IM to determine assisted Antibiotic therapy. S/P Surgical Debridement of left foot wound including bone biopsy Diabetic neuropathic ulceration left foot - Dressing instructions: Continue to cover wound base with mepitel. Apply negative pressure device to left foot wounds at 125mmhg continuous. Change dressing three times per day. - Weight bearing: Ambulate Partial weight bearing through left forefoot with walker. Neuropathy/ Type II Diabetes - Monitor blood glucose - Internal medicine following PLAN: Wound is stable. Culture and pathology results noted. Infectious disease on case. Antibiotic therapy per ID. Continue Negative pressure device left foot. Weight bearing: Ambulate partial weight bearing through left forefoot with walker. MENT SETTER HELPER * Teerza Mcpherson MD - 05/25/2024 11:24 AM CST Hospitalist Progress Note Admit Date: 05/13/2024 Subjective: Pain controlled. BM this am. Interval History: Mr. Hyatt is a 43-year-old male with a history of diabetes, dyslipidemia, peripheral neuropathy admitted with acute osteomyelitis of the left foot status post debridement. Awaiting placement. 0.9% NaCl 10-40 mL Intracatheter q8h artificial tears Each Eye q8h atorvastatin 40 mg Oral AT BEDTIME buPROPion XL 24hr 150 mg Oral QDAY cefTRIAXone 2 g Intravenous q24h chlorhexidine 15 mL Mouth/Throat BID ferrous sulfate 325 mg Oral QDAY AFTER LUNCH gabapentin 300 mg Oral TID heparin 7,500 Units Subcutaneous q8h insulin aspart 0-4 Units Subcutaneous AT BEDTIME insulin aspart 0-6 Units Subcutaneous TID WC insulin aspart 15 Units Subcutaneous TID WC insulin glargine 24 Units Subcutaneous AT BEDTIME metroNIDAZOLE 500 mg Oral q8h pantoprazole EC 40 mg Oral QDAY polyethylene glycol 3350 17 g Oral QDAY tamsulosin 0.4 mg Oral QDAY PRN Meds: NaCl 0.9% NaCl acetaminophen benzonatate cyclobenzaprine dextrose IV for hypoglycemia OR dextrose IV for hypoglycemia OR glucagon glucose (Diabetic Use) gel HYDROcodone-acetaminophen ondansetron Objective: Temp: [98.2 ??F (36.8 ??C)-98.9 ??F (37.2 ??C)] 98.3 ??F (36.8 ??C) Pulse: [86-101] 96 Resp: [16-18] 16 BP: (119-146)/(66-85) 146/82Weight change: Intake/Output Summary (Last 24 hours) at 05/25/2024 1125 Last data filed at 05/25/2024 0858 Gross per 24 hour Intake 1060 ml Output 1650 ml Net -590 ml GEN No acute distress. HEENT MMM. Sclera anicteric. CHEST CTA&P B HEART RRR, systolic murmur ABD Soft, NT, +BS. EXT No edema. Left foot with wound VAC in place NEURO Alert, oriented x 3, appropriately interactive. Data Review Recent Labs Component Name 05/18/24 0338 05/17/24 0946 05/16/24 0309 WBC 14.5* 15.5* 21.7* HGB 7.7* 7.1* 7.3* HCT 24.7* 23.2* 23.6* MCV 89.5 90.3 90.1 Recent Labs Component Name 05/24/24 0508 05/23/24 0333 05/22/24 0309 CALCIUM 8.9 8.8 8.6 PHOS 4.2 3.7 4.0 Recent Labs Component Name 05/24/24 0508 05/23/24 0333 05/22/24 0309 05/13/24 1830 09/17/23 1247 NA - - - - 140 CL - - - - 108* CO2 23 22 23 - 26 BUN 26* 28* 28* - 18 CREATININE 1.33* 1.47* 1.38* - 0.75 - = values in this interval not displayed. Recent Labs Component Name 09/17/23 1247 PROT 6.6 6.9 ALB 3.6 ALKPHOS 84 AST 12 ALT 11 TBILI 0.5 US retroperitoneal 1.Within normal limits. There is no evidence of hydronephrosis or medical renal disease. 2.The ureteral jets were not identified bilaterally during this study. XR left foot Ulceration versus surgical debridement of the posterior plantar soft tissue of the foot and calcaneus. MRI left foot 1. Large soft tissue wound//debridement surrounding the calcaneus and extending to bone. 2. There is mild osteomyelitis in the lateral calcaneal tubercle. However most of the calcaneal marrow changes are likely reactive. 3. No visible abscess. 4. Detached peroneal tendons. 5. Other findings as described MONO No evidence for significant arterial insufficiency of either the right or left lower extremity at rest. Bilateral digital tracings are pulsatile. Bone biopsy Bone, left calcaneus, debridement - Focal acute osteomyelitis Assessment and Plan: Ulcer of left foot with other severity (HCC) (POA: Yes) Acute osteomyelitis (HCC) (POA: Yes) CHRISTIE (acute kidney injury) (HCC) (POA: Yes) Controlled type 2 diabetes mellitus, with long-term current use of insulin (HCC) (POA: Yes) #Acute osteomyelitis of the left calcaneous status post excisional debridement of left foot wound on 05/15 and 2nd debridement with application of and graft on 05/20 by Podiatry: Left foot wound VAC in place. Bone pathology with acute osteomyelitis. Status post PICC line placement on 05/24. Infectious Disease recommending cefepime and Flagyl until July 01. Podiatry recommending partial weight-bearing through left forefoot with walker. #CHRISTIE: Last creatinine less than 1 2022. Patient presented with hyperkalemia which is now resolved. Renal ultrasound negative. Nephrology following. #Controlled DMII complicated by peripheral neuropathy: A1c 6.6. Glucose reviewed and at goal. Continue Lantus, prandial NovoLog and sliding scale insulin for goal glucose of less than 180. Continue gabapentin for peripheral neuropathy. #Dyslipidemia: Continue Lipitor #BPH: Continue Flomax #GERD: Continue pantoprazole #Mood disorder: Continue Wellbutrin #MACKENZIE: Continue ferrous sulfate #WEST: CPAP at night Prophy: Heparin Diet: Consistent carb diet. Dispo: PT and OT were recommending acute rehab. Insurance denied acute rehab. Social work followingfor placement. Discharge pending placement to SNF. Patient is medically stable for discharge. Code: Full Tereza Mcpherson MD 05/25/2024 11:25 AM MENT SETTER HELPER * Rio Schmitz RN - 05/25/2024 10:46 AM CST Problem: Fall Risk Goal: Fall risk and fall related injury risk are minimized (interventions related to the fall risk can be found in the flowsheet documentation) Outcome: Progressing Problem: Pain/Discomfort Goal: Patient exhibits reduced pain/discomfort as evidenced by pain scores Outcome: Progressing Goal: Patient uses pharmacological and non-pharmacological pain management strategies. Outcome: Progressing Goal: Patient verbalizes acceptable level of pain relief and ability to engage in desired activity. Outcome: Progressing MENT SETTER HELPER * Sherrell Deal - 05/25/2024 9:26 AM CST Patient provided list of in-network home health care. Home Health Referrals have been initiated based on patient's choice: Continued Care and Services - Admitted Since 05/13/2024 Destination Service Provider Request Status Selected Services Address Phone Fax Patient Preferred [facility] Accepted -- [address] [facility] [address] [phone] -- Internal Comment last updated by Latanya Sims, LEAD APPLIER 05/23/2024 0853 05-20-24 However, per Nina/admissions [phone], can only do IV Q24. [facility] -- [address], [facility] [phone] -- [facility] Pending - Request Sent -- [address] [facility] [phone] -- [facility] Pending - Request Sent -- [address] [facility] [phone] -- [facility] Pending - Request Sent -- [address] [phone] -- [facility] ([facility]) Declined Facility full -- [address] [place] [phone] -- [facility] Declined -- [address] [place] [address] [phone] -- Home Medical Care Service Provider Request Status Selected Services Address Phone Fax Patient Preferred [facility] Pending - Request Sent -- [address] [facility], [facility] [address] [phone] -- [facility] Pending - Request Sent -- [address] [facility] [address] [phone] -- [facility] Pending - Request Sent -- [address] [facility] [phone] -- [facility] ([facility]) Pending - Request Sent -- [address] [facility] [phone] -- [facility] Pending - Request Sent -- [address], [facility] [phone] -- MENT SETTER HELPER * Hattie Liao MD - 05/25/2024 9:21 AM CST Infectious Diseases Consult Note Patient's Primary Care Physician: Nguyễn Bingham MD Reason for Consultation: foot ulcer Referring Physcian: No admitting provider for patient encounter. Name: Rene Hyatt Age: [age] year old 11 Chief Complaint/History of Present Illness Looks better No complaints Sp excisional debridement left foot 05/20, with rare skin jero Remains on cefepime/flagyl No new issues Objective: Review of Systems General: no fatigue/fever/chills Skin: no rashes/lesions Respiratory: no cough/sob Cardiovascular: no cp/palpitations Gastrointestinal: no nausea/diarrhea Genitourinary: no dysuria/hematuria Musculoskeletal: Left foot pain Exam Vitals: 05/24/24 1944 05/24/24 2304 05/25/24 0456 05/25/24 0824 BP: 139/85 144/84 119/80 146/82 Pulse: 86 94 98 96 Resp: 16 16 16 Temp: 98.6 ??F (37 ??C) 98.6 ??F (37 ??C) 98.3 ??F (36.8 ??C) 98.3 ??F (36.8 ??C) SpO2: 98% 98% 97% 95% Weight: Height: Temp (30hrs) Max:98.9 ??F (37.2 ??C) General appearance: Alert, no distress Lungs: clear to auscultation bilaterally Heart: regular rate and rhythm, S1, S2 normal, no murmur, Abdomen: soft, non-tender; bowel sounds normal Extremities: no edema Left foot VAC Skin: no rash Lines: MEDICATIONS FOR CURRENT ENCOUNTER: SCHEDULED MEDICATIONS: 0.9% NaCl injection 10-40 mL, Intracatheter, q8h artificial tears ophthalmic ointment, Each Eye, q8h atorvastatin (Lipitor) tablet 40 mg, Oral, AT BEDTIME buPROPion XL 24hr (Wellbutrin-XL) tablet 150 mg, Oral, QDAY cefTRIAXone (Rocephin) 2,000 mg in 0.9% NaCl IV 50 mL IVPB, Intravenous, q24h chlorhexidine (Peridex) 0.12 % oral solution 15 mL, Mouth/Throat, BID ferrous sulfate tablet 325 mg, Oral, QDAY AFTER LUNCH gabapentin (Neurontin) capsule 300 mg, Oral, TID heparin injection 7,500 Units, Subcutaneous, q8h insulin aspart (NovoLOG) pen 0-4 Units, Subcutaneous, AT BEDTIME insulin aspart (NovoLOG) pen 0-6 Units, Subcutaneous, TID WC insulin aspart (NovoLOG) pen 15 Units, Subcutaneous, TID WC insulin glargine (Lantus) pen 24 Units, Subcutaneous, AT BEDTIME metroNIDAZOLE (Flagyl) tablet 500 mg, Oral, q8h pantoprazole EC (Protonix) tablet 40 mg, Oral, QDAY polyethylene glycol 3350 (Miralax) packet 17 g, Oral, QDAY tamsulosin (Flomax) capsule 0.4 mg, Oral, QDAY [COMPLETED] alteplase (Cathflo Activase) injection 2 mg, Intravenous, Once [COMPLETED] heparin lock flush injection 250 Units, Intracatheter, Once [COMPLETED] lidocaine PF (Xylocaine MPF) 1 % injection, Intradermal, Once Data Recent Labs Component Name 05/18/24 03305/17/24 0946 05/16/24 0309 WBC 14.5* 15.5* 21.7* HGB 7.7* 7.1* 7.3* HCT 24.7* 23.2* 23.6* PLTCOUNT 330 284 300 Recent Labs Component Name 05/24/24 0508 05/23/24 0333 05/22/24 0309 SODIUM 140 136 136 POTASSIUM 4.3 5.3* 4.7 CHLORIDE 111* 109* 108* CO2 23 22 23 BUN 26* 28* 28* CREATININE 1.33* 1.47* 1.38* GLUCOSE 123* 174* 153* CALCIUM 8.9 8.8 8.6 Recent Labs Component Name 05/24/24 0508 05/23/24 0333 05/22/24 0309 05/14/24 0403 09/17/23 1247 ALBUMIN 2.0* 1.9* 1.8* - - ALKPHOS - - - - 84 ALT - - - - 11 AST - - - - 12 - = values in this interval not displayed. No results for input(s): CDIFFTOXINAB in the last 12564 hours. No results for input(s): SEDRATE in the last 75749 hours. No results for input(s): CRP in the last 43218 hours. Recent Labs Component Name 05/14/24 0403 CK 136 . Recent Labs Component Name 05/16/24 0904 05/14/24 1706 VANCOPEAK 40.3* 25.0 Recent Labs Component Name 05/15/24 0013 09/17/23 1247 HGBA1C 6.6* 6.2* Recent Labs Component Name 05/16/24 1257 COLORUA Yellow CLARITYUA Turbid* SPECGRAVUA 1.016 PHUA 5.5 PROTEINUA 1+* BLOODUA 2+* LEUKOCYTEUA 75 MIKKI/uL* NITRITEUA Negative GLUCOSEUA Normal KETONEUA Trace* BILIRUBINUA Negative UROBILINUA Normal WBCUA 6-10* RBCUA None Seen BACTUA None Seen Microbiology Radiology Assessment --Ulcer of left foot Om 05/14 cx swab - morganella Xray- diffuse gas I hindfoot Mri -mild osteo of the lateral calcaneal tubercle Cultures with Morganella and group B strep Debridement to bone level 05/15 Path with acute osteomyelitis Cx GBS, Morganella, proteus, parvimonas and prevotella -- christie --Dm--uncontrolled --htn --anemia --anxiety, depression -- bph -- mo --non compliance Plan -ceftriaxone, po flagyl, stop 06/25/2024 - podiatry on case, - monitoring labs - f.u bcx , wound cx - local care of wounds - follow up OR cultures from 05/20 pending 6 weeks of antibiotics Weekly CBC, CMP, UA, sed rate. Fax results [phone] Discussed with RN and SW Hattie Liao MD MENT SETTER HELPER * Kang Sanders RN - 05/24/2024 11:10 PM CST Problem: Fall Risk Goal: Fall risk and fall related injury risk are minimized (interventions related to the fall risk can be found in the flowsheet documentation) Outcome: Progressing Problem: Pain/Discomfort Goal: Patient exhibits reduced pain/discomfort as evidenced by pain scores Outcome: Progressing Problem: Nutrient: Increased nutrient needs (specify) Goal: Total intake will meet estimated nutrient needs Outcome: Progressing Problem: Pain/Discomfort Goal: Patient uses pharmacological and non-pharmacological pain management strategies. Outcome: Progressing MENT SETTER HELPER * Abby Quinn DPM - 05/24/2024 6:01 PM CST Admit Date: 05/13/2024 4:58 PM Hospital Day: 11 Name: Rene Hyatt Date: 05/24/2024 Medical Doctor: Nguyễn Bingham MD CC: Patient is seen at bedside for follow up for infection, and open ulceration left foot. HPI: Patient is S/P Surgical debridement of left foot wound with biopsy. Patient underwent surgical debridement on 05/15/24. Patient denies n/v/f/c, sob this am. The wound has been treated with Cefepime, and metronidazole, General: Alert and oriented x 3 Family History: No family history on file. Data Vitals: 05/24/24 0502 05/24/24 0740 05/24/24 1231 05/24/24 1534 BP: 121/64 124/68 129/66 132/75 Pulse: 100 (!) 110 101 87 Resp: 18 18 18 18 Temp: 98.6 ??F (37 ??C) 98.6 ??F (37 ??C) 98.2 ??F (36.8 ??C) 98.9 ??F (37.2 ??C) SpO2: 96% 99% 97% 99% Weight: Height: Temp (30hrs) Max:98.9 ??F (37.2 ??C) Filed Wts: 05/13/24 2213 Weight: (!) 183.9 kg (405 lb 6.4 oz) MEDICATIONS FOR CURRENT ENCOUNTER: SCHEDULED MEDICATIONS: 0.9% NaCl injection 10-40 mL, Intracatheter, q8h alteplase (Cathflo Activase) injection 2 mg, Intravenous, Once artificial tears ophthalmic ointment, Each Eye, q8h atorvastatin (Lipitor) tablet 40 mg, Oral, AT BEDTIME buPROPion XL 24hr (Wellbutrin-XL) tablet 150 mg, Oral, QDAY cefTRIAXone (Rocephin) 2,000 mg in 0.9% NaCl IV 50 mL IVPB, Intravenous, q24h chlorhexidine (Peridex) 0.12 % oral solution 15 mL, Mouth/Throat, BID ferrous sulfate tablet 325 mg, Oral, QDAY AFTER LUNCH gabapentin (Neurontin) capsule 300 mg, Oral, TID heparin injection 7,500 Units, Subcutaneous, q8h insulin aspart (NovoLOG) pen 0-4 Units, Subcutaneous, AT BEDTIME insulin aspart (NovoLOG) pen 0-6 Units, Subcutaneous, TID WC insulin aspart (NovoLOG) pen 15 Units, Subcutaneous, TID WC insulin glargine (Lantus) pen 24 Units, Subcutaneous, AT BEDTIME metroNIDAZOLE (Flagyl) tablet 500 mg, Oral, q8h pantoprazole EC (Protonix) tablet 40 mg, Oral, QDAY polyethylene glycol 3350 (Miralax) packet 17 g, Oral, QDAY tamsulosin (Flomax) capsule 0.4 mg, Oral, QDAY [COMPLETED] lidocaine PF (Xylocaine MPF) 1 % injection, Intradermal, Once CONTINUOUS MEDICATIONS: 0.9% NaCl flush bag, Intravenous, CONTINUOUS PRN PRN MEDICATIONS: Or Or 0.9% NaCl flush bag, Intravenous, CONTINUOUS PRN 0.9% NaCl injection 10-40 mL, Intracatheter, PRN acetaminophen (Tylenol) tablet 650 mg, Oral, q6h PRN benzonatate (Tessalon) capsule 100 mg, Oral, TID PRN cyclobenzaprine (Flexeril) tablet 5 mg, Oral, TID PRN dextrose 10 % IV bolus, Intravenous, PRN dextrose 10 % IV bolus, Intravenous, PRN glucagon (Glucagen) injection 1 mg, Subcutaneous, PRN glucose (Diabetic Use) oral gel, Oral, PRN HYDROcodone-acetaminophen (Opal) 5-325 MG tablet 1 tablet, Oral, q4h PRN ondansetron (Zofran) injection 4 mg, Intravenous, q6h PRN Recent Labs Component Name 05/18/24 0338 05/17/24 0946 05/16/24 0309 WBC 14.5* 15.5* 21.7* HGB 7.7* 7.1* 7.3* HCT 24.7* 23.2* 23.6* PLTCOUNT 330 284 300 Recent Labs Component Name 05/24/24 0508 05/13/24 1830 09/17/23 1247 SODIUM 140 - - POTASSIUM 4.3 - 3.8 CHLORIDE 111* - - CO2 23 - 26 BUN 26* - 18 CREATININE 1.33* - 0.75 GLUCOSE 123* - 119* CALCIUM 8.9 - 9.6 ALBUMIN 2.0* - - ALKPHOS - - 84 ALT - - 11 AST - - 12 EGFR 68* - >90 - = values in this interval not displayed. No results for input(s): INR in the last 41174 hours. No results for input(s): PT in the last 88031 hours. No results for input(s): PTT in the last 08468 hours. GENERAL: Conversant; NAD PSYCHE: Alert and oriented to person, place, and time. Appropriate affect noted. EYES: PERRLA; No scleral icterus. Conjuctiva moist NECK: Supple; no masses. Trachea midline. No thyromegaly Patient Vitals for the past 6 hrs: Temp Pulse Resp BP BP Method 05/24/24 1534 98.9 ??F (37.2 ??C) 87 18 132/75 Automatic 05/24/24 1231 98.2 ??F (36.8 ??C) 101 18 129/66 Automatic Dressings are c/d/I, no strikethrough Previous exam: Lower extremity VASCULAR: Dorsalis pedis pulses: Right 0/4 Left 0/4 Posterior tibial pulses: Right 0/4 Left 0/4 Patient shows: decreased hair growth thin atrophic skin No edema noted bilaterally LYMPHATICS: Lymphedema is noted bilaterally. No painful popliteal or inguinal nodes DERMATOLOGIC: Skin color and texture are: Ulceration located: Left foot There is a large open ulceration noted to the plantar aspect of left foot with granular wound base with graft intact. There continues to be franchesca wound erythema noted extending proximally to left calf. There is moderate serous drainage noted. There is no malodor noted. Size 15.0cmx 15.0cm x 2.5cm NEUROLOGIC: Protective Sensation is absent with 5.07 SWMF bilaterally at toes and MPJ levels Patient can not distinguish between sharp and dull. Proprioception is intact. MUSCULO: Manual Muscle strength is diminsihed in the anterior and posterior muscle groups bilateral feet andlower limbs. Blood Culture: Wound Culture: Arterial Doppler: SUMMARY: No evidence for significant arterial insufficiency of either the right or left lower extremity at rest. Bilateral digital tracings are pulsatile. Gerry Garcia MD, [facility], Vascular & Interventional radiologist, reviewed the images and reported the study. FINDINGS: Procedure: The arterial vasculature of the lower extremities was evaluated by analysis of Doppler pressures and waveforms obtained in the legs at rest. Study Quality: This study is of adequate technical quality. Doppler Waveforms: Right Left Common Fem Triphasic Triphasic Popliteal Triphasic Triphasic Posterior Tibial Triphasic Triphasic Dorsalis Pedis Triphasic Triphasic Culture Bone calcaneus Left 05/15/24 Collected 05/15/2024 16:33 Status: Preliminary result Visible to patient: No (not released) Dx: Left foot infection Specimen Information: Foot; Microbiology 0 Result Notes Culture Heavy Morganella morganii Critical Heavy Streptococcus agalactiae (Group B) Critical Rare Proteus vulgaris Critical Susceptibility testing of penicillin, other beta-lactam antibiotics, and vancomycin is not necessary for beta-hemolytic streptococci groups A,B,C and G because resistant strains have not been recognized. Surgical Description: Calcaneus Bone Left Foot Culture wound Left foot 05/15/24 Collected 05/15/2024 16:34 Status: Preliminary result Visible to patient: No (not released) Dx: Left foot infection Specimen Information: Foot; Microbiology 0 Result Notes Culture Rare Streptococcus agalactiae (Group B) Critical Susceptibility testing of penicillin, other beta-lactam antibiotics, and vancomycin is not necessary for beta-hemolytic streptococci groups A,B,C and G because resistant strains have not been recognized. Surgical Description: Left Foot Pathology: Biopsy taken 05/15/24. Final Diagnosis Bone, left calcaneus, debridement - Focal acute osteomyelitis Patient Glucose Bedside (mg/dL) in the past 24 hrs: 05/23/24 1955, Glucose Bedside (mg/dL):170 mg/dL 05/24/24 0740, Glucose Bedside (mg/dL):132 mg/dL 05/24/24 1230, Glucose Bedside (mg/dL):167 mg/dL ASSESSEMENT: 1. Surgical Debridement of left foot wound including bone biopsy 2. Infection left foot 3. Osteomyelitis left foot 4. Diabetic neuropathic ulceration - 5. PVD 6. Neuropathy 7. Diabetes Infection left foot/ Osteomyelitis left foot - Cefepime (Maxipime) 2,000mg every 8 hours - Metronidazole 500mg every 8 hours - Labs reviewed - ID/ IM to determine assisted Antibiotic therapy. S/P Surgical Debridement of left foot wound including bone biopsy Diabetic neuropathic ulceration left foot - Dressing instructions: Continue to cover wound base with mepitel. Apply negative pressure device to left foot wounds at 125mmhg continuous. Change dressing three times per day. - Weight bearing: Ambulate Partial weight bearing through left forefoot with walker. Neuropathy/ Type II Diabetes - Monitor blood glucose - Internal medicine following PLAN: Wound is stable. Culture and pathology results noted. Infectious disease on case. Antibiotic therapy per ID. Continue Negative pressure device left foot. Weight bearing: Ambulate partial weight bearing through left forefoot with walker. Will continue to follow while hospitalized. Patient should follow in the wound center with me here at [facility] or with his home Print Graphic Designer/ wound care physician within 2 weeks of discharge. Patient is at high risk for limb loss. MENT SETTER HELPER * Javier Alcazar RD/CAYETANO - 05/24/2024 3:50 PM CST Images from the original note were not included. BRIEF SYNOPSIS: Nutrition Risk Identified but does not meet malnutrition criteria. Nutrition Plan: Current diet order: Consistent Carb Standard;Other (Comments) (low potassium) Current supplement order: Bao BID Recommendation to Physician: None Discharge Needs: Nutritional Supplement at Discharge: Yes CLINICAL NUTRITION ASSESSMENT: Patient seen for follow-up. S/p repeat debridement and graft application on 05/20 for food wound. Patient reports good appetiteand PO intake. P.O.Intake for the past 72 hrs: % Meal Taken Av % Min: 25 % Max: 100 %. Patientdenies N/V at this time, reports loose stools. Patient receiving Bao BID, reports he likes it andis consuming when he receives it. Will consume Bao BID. Bao (Wound Healing Supplement) provides 90 calories, 14 grams amino acid (7 gm L-arginine & 7 gm L-glutamine), 2.5 grams protein (hydrolyzed collagen), 8 grams of carb per serving along with 9.5mg Zinc, 300mg Vit C, 15 mg Vitamin E, and 1.2 mcg Vitamin B12. Patient receiving consistent CHO, low potassium diet. No new weight to assess at this time. Reviewed labs. POC BG range past 24 hours: 132-170 mg/dL. Elevated BUN/Creatinine related to CHRISTIE. Noted potassium was elevated for a few days, nephrology encouraging low potassium diet. Will continue low K diet at this time. Patient receiving Lipitor, Ferrous sulfate, Novolog, Lantus, and Protonix. Last BM05/24. Med/Surg History and Clinical Diagnoses: infected DM foot ulcer, ARF, DM, HTN, Anemia, Anxiety/depression, GERD, BPH, obesity, non compliance Height: 200.7 cm (6' 7 ) BMI: Body mass index is 45.67 kg/m??. BMI Range: Morbidly Obese Class 3 IBW/lb (Calculated) Male: 220 Recent Weights/Methods 07/30/2023 1352 09/17/2023 1059 10/01/2023 1058 10/08/2023 0833 10/12/2023 1039 10/29/2023 1255 05/13/2024 2213 Weight: 158.3 kg (349 lb) 157.4 kg (347 lb) 166.7 kg (367 lb 9.6 oz) 164.7 kg (363 lb) 164.7 kg (363 lb) 164.7 kg (363 lb) 183.9 kg (405 lb 6.4 oz) Weight Method : -- -- -- -- -- -- Standing scale No new weight since 05/13/24 PO INTAKE Current diet order: Consistent Carb Standard;Other (Comments) (low potassium) Nutrition recommendation: agree with current nutrition order Food Allergies: No known food allergies Last % Meal Taken: 95 % (05/24/24 0935) 48 hr PO INTAKE % Meal Taken Av.8 % Min: 25 % Max: 100 % Current supplement order: Bao BID Supplement(s) Consumed- Last 48 hours None Pain affecting intake: No Chewing/Swallowing: None GI Concerns: None Stools: Stools (# of stools): 1 (05/24/24 0136) Stool Appearance : Loose;Soft (05/24/24 8844) Stool Amount: Small (05/24/24 1534) Skin/Wound: LLE wound Estimated Needs: KCAL: 1059-9913 kcals (11-14 kcal/kg of ABW) Protein (g): 138-183 g of PRO (1.5- 2.0 g of PRO/kg of IBW) Fluid (ml): 1 ml/kcal Recommended Access Route: PO Labs: Recent Labs Component Name 05/24/24 0508 05/23/24 0333 05/22/24 0309 05/13/24 1830 09/17/23 1247 SODIUM 140 136 136 - - NA - - - - 140 POTASSIUM 4.3 5.3* 4.7 - 3.8 CHLORIDE 111* 109* 108* - - CO2 23 22 23 - 26 BUN 26* 28* 28* - 18 CREATININE 1.33* 1.47* 1.38* - 0.75 GLUCOSE 123* 174* 153* - 119* CALCIUM 8.9 8.8 8.6 - 9.6 ALT - - - - 11 ALKPHOS - - - - 84 AST - - - - 12 EGFR 68* 60* 65* - >90 ALBUMIN 2.0* 1.9* 1.8* - - - = values in this interval not displayed. Recent Labs Component Name 05/24/24 0508 05/23/24 0333 05/22/24 0309 PHOS 4.2 3.7 4.0 No results for input(s): MAGNESIUM in the last 31813 hours. Recent Labs Component Name 05/18/24 0338 05/17/24 0946 05/16/24 0309 HGB 7.7* 7.1* 7.3* HCT 24.7* 23.2* 23.6* Recent Labs Component Name 05/15/24 0013 09/17/23 1247 HGBA1C 6.6* 6.2* Patient Vitals for the past 30 hrs: Glucose Bedside (mg/dL) 05/24/24 1230 167 mg/dL 05/24/24 0740 132 mg/dL 05/23/24 1955 170 mg/dL 05/23/24 1720 176 mg/dL 05/23/24 1144 176 mg/dL MEDICATIONS FOR CURRENT ENCOUNTER: SCHEDULED MEDICATIONS: 0.9% NaCl injection 10-40 mL, Intracatheter, q8h artificial tears ophthalmic ointment, Each Eye, q8h atorvastatin (Lipitor) tablet 40 mg, Oral, AT BEDTIME buPROPion XL 24hr (Wellbutrin-XL) tablet 150 mg, Oral, QDAY cefepime (Maxipime) 2,000 mg in 0.9% NaCl IV 50 mL IVPB, Intravenous, q8h chlorhexidine (Peridex) 0.12 % oral solution 15 mL, Mouth/Throat, BID ferrous sulfate tablet 325 mg, Oral, QDAY AFTER LUNCH gabapentin (Neurontin) capsule 300 mg, Oral, TID heparin injection 7,500 Units, Subcutaneous, q8h insulin aspart (NovoLOG) pen 0-4 Units, Subcutaneous, AT BEDTIME insulin aspart (NovoLOG) pen 0-6 Units, Subcutaneous, TID WC insulin aspart (NovoLOG) pen 15 Units, Subcutaneous, TID WC insulin glargine (Lantus) pen 24 Units, Subcutaneous, AT BEDTIME metroNIDAZOLE (Flagyl) tablet 500 mg, Oral, q8h pantoprazole EC (Protonix) tablet 40 mg, Oral, QDAY polyethylene glycol 3350 (Miralax) packet 17 g, Oral, QDAY tamsulosin (Flomax) capsule 0.4 mg, Oral, QDAY [COMPLETED] lidocaine PF (Xylocaine MPF) 1 % injection, Intradermal, Once [COMPLETED] sodium zirconium cyclosilicate (Lokelma) packet 10 g, Oral, Once CONTINUOUS MEDICATIONS: 0.9% NaCl flush bag, Intravenous, CONTINUOUS PRN PRN MEDICATIONS: Or Or 0.9% NaCl flush bag, Intravenous, CONTINUOUS PRN 0.9% NaCl injection 10-40 mL, Intracatheter, PRN acetaminophen (Tylenol) tablet 650 mg, Oral, q6h PRN benzonatate (Tessalon) capsule 100 mg, Oral, TID PRN cyclobenzaprine (Flexeril) tablet 5 mg, Oral, TID PRN dextrose 10 % IV bolus, Intravenous, PRN dextrose 10 % IV bolus, Intravenous, PRN glucagon (Glucagen) injection 1 mg, Subcutaneous, PRN glucose (Diabetic Use) oral gel, Oral, PRN HYDROcodone-acetaminophen (Opal) 5-325 MG tablet 1 tablet, Oral, q4h PRN ondansetron (Zofran) injection 4 mg, Intravenous, q6h PRN Edema RLE Edema: Moderate pitting, indentation subsides rapidly (05/22/24 0033) LLE Edema: Deep pitting, indentation remains for a short time (05/22/24 0033) Nutrition Diagnostic Statement: Increased nutrient needs related to:: increased demands for wound healing as evidenced by:: estimated protein needs .. (138-183 g) Nutrition Diagnostic Statement Progress: Nutrition problem continues Nutrition Intervention: Meals and snacks:;Medical Food Supplements: Education needed: Wound Healing Education Provided: Yes;Handout Provided (05/14/24 1200) Pt was educated during previous RD visit Expected level of compliance: Fair Monitoring: PO intake Acceptance of oral nutrition supplement and intake Weights Labs GI function/bowel movements Skin Monitor per nutrition guidelines. Risk Level: Moderate Evaluation: Nutrition Goal: Total intake will meet estimated nutrient needs Nutrition Goal Timeframe: Throughout stay Nutrition Goal Progress: Progressing toward goal;Continue with current goal Javier Vincent MS, RD/LD As[employer] [id number] MENT SETTER HELPER * Tereza Mcpherson MD - 05/24/2024 3:29 PM CST Hospitalist Progress Note Admit Date: 05/13/2024 Subjective: Patient denies any pain at this time. Interval History: Mr. Hyatt is a 43-year-old male with a history of diabetes, dyslipidemia, peripheral neuropathy admitted with acute osteomyelitis of the left foot status post debridement. Awaiting placement. 0.9% NaCl 10-40 mL Intracatheter q8h artificial tears Each Eye q8h atorvastatin 40 mg Oral AT BEDTIME buPROPion XL 24hr 150 mg Oral QDAY cefepime 2 g Intravenous q8h chlorhexidine 15 mL Mouth/Throat BID ferrous sulfate 325 mg Oral QDAY AFTER LUNCH gabapentin 300 mg Oral TID heparin 7,500 Units Subcutaneous q8h insulin aspart 0-4 Units Subcutaneous AT BEDTIME insulin aspart 0-6 Units Subcutaneous TID WC insulin aspart 15 Units Subcutaneous TID WC insulin glargine 24 Units Subcutaneous AT BEDTIME metroNIDAZOLE 500 mg Oral q8h naloxone 0.04 mg Intravenous post-OP multiple pantoprazole EC 40 mg Oral QDAY polyethylene glycol 3350 17 g Oral QDAY tamsulosin 0.4 mg Oral QDAY PRN Meds: NaCl 0.9% NaCl acetaminophen benzonatate cyclobenzaprine dextrose IV for hypoglycemia OR dextrose IV for hypoglycemia OR glucagon glucose (Diabetic Use) gel HYDROcodone-acetaminophen ondansetron Objective: Temp: [98.2 ??F (36.8 ??C)-98.7 ??F (37.1 ??C)] 98.2 ??F (36.8 ??C) Pulse: [96-110] 101 Resp: [16-18] 18 BP: (121-161)/(64-83) 129/66Weight change: Intake/Output Summary (Last 24 hours) at 05/24/2024 1532 Last data filed at 05/24/2024 0935 Gross per 24 hour Intake 720 ml Output 2125 ml Net -1405 ml GEN No acute distress. HEENT MMM. Sclera anicteric. CHEST CTA&P B HEART RRR, systolic murmur ABD Soft, NT, +BS. EXT No edema. Left foot with wound VAC in place NEURO Alert, oriented x 3, appropriately interactive. Data Review Recent Labs Component Name 05/18/24 0338 05/17/24 0946 05/16/24 0309 WBC 14.5* 15.5* 21.7* HGB 7.7* 7.1* 7.3* HCT 24.7* 23.2* 23.6* MCV 89.5 90.3 90.1 Recent Labs Component Name 05/24/24 0508 05/23/24 0333 05/22/24 0309 CALCIUM 8.9 8.8 8.6 PHOS 4.2 3.7 4.0 Recent Labs Component Name 05/24/24 0508 05/23/24 0333 05/22/24 0309 05/13/24 1830 09/17/23 1247 NA - - - - 140 CL - - - - 108* CO2 23 22 23 - 26 BUN 26* 28* 28* - 18 CREATININE 1.33* 1.47* 1.38* - 0.75 - = values in this interval not displayed. Recent Labs Component Name 09/17/23 1247 PROT 6.6 6.9 ALB 3.6 ALKPHOS 84 AST 12 ALT 11 TBILI 0.5 US retroperitoneal 1.Within normal limits. There is no evidence of hydronephrosis or medical renal disease. 2.The ureteral jets were not identified bilaterally during this study. XR left foot Ulceration versus surgical debridement of the posterior plantar soft tissue of the foot and calcaneus. MRI left foot 1. Large soft tissue wound//debridement surrounding the calcaneus and extending to bone. 2. There is mild osteomyelitis in the lateral calcaneal tubercle. However most of the calcaneal marrow changes are likely reactive. 3. No visible abscess. 4. Detached peroneal tendons. 5. Other findings as described MONO No evidence for significant arterial insufficiency of either the right or left lower extremity at rest. Bilateral digital tracings are pulsatile. Bone biopsy Bone, left calcaneus, debridement - Focal acute osteomyelitis Assessment and Plan: Ulcer of left foot with other severity (HCC) (POA: Yes) Acute osteomyelitis (HCC) (POA: Yes) CHRISTIE (acute kidney injury) (HCC) (POA: Yes) Controlled type 2 diabetes mellitus, with long-term current use of insulin (HCC) (POA: Yes) #Acute osteomyelitis of the left calcaneous status post excisional debridement of left foot wound on 05/15 and 2nd debridement with application of and graft on 05/20 by Podiatry: Left foot now was wound VAC. Bone pathology with acute osteomyelitis. Status post PICC line placement on 05/24. Infectious Disease recommending cefepime and Flagyl until July 01. Podiatry recommending partial weight-bearing through left forefoot with walker. #CHRISTIE: Last creatinine less than 1 2022. Patient presented with hyperkalemia which is now resolved. Renal ultrasound negative. Nephrology was consulted #Controlled DMII complicated by peripheral neuropathy: A1c 6.6. Continue Lantus, prandial NovoLog and sliding scale insulin for goal glucose of less than 180. Continue gabapentin for peripheral neuropathy. #Dyslipidemia: Continue Lipitor #BPH: Continue Flomax #GERD: Continue pantoprazole #Mood disorder: Continue Wellbutrin #MACKENZIE: Continue ferrous sulfate #WEST: CPAP at night Prophy: Heparin Diet: Consistent carb diet. Dispo: PT and OT were recommending acute rehab. Insurance denied acute rehab. Social work followingfor placement. Discharge pending placement. Patient is medically stable for discharge. Code: Full Tereza Mcpherson MD 05/24/2024 3:32 PM MENT SETTER HELPER * Tom Bland - 05/24/2024 2:52 PM CST Helicopter Specialist visited with patient just shortly after the social worker clinical had been there with patient. Patient was distressed regarding future living situation. Patient wants to get home to be with their Mother and their cats. Patient is going to need some rehab and therapy to get back to walking and putting pressure on leg and left foot. Helicopter Specialist offered a prayer with patient. Patient was emotional and discouraged at this time. After prayer Helicopter Specialist blessed the patient and said they would check back on them again tomorrow. Patient said that would be fine. 05/24/24 1400 Spiritual In what ways can we or our chaplains presently attend to your spiritual, emotional or cultural needs? None Visit Type Assessment Date 05/24/24 Pastoral Care Reason for Visit Follow Up Pastoral Care Visit Type(s) Follow Up Encounter Type Patient Interventions Pastoral Care Conversation;Prayer;Reflective Listening;Support Plan/Outcome Plan Will Remain Available if Requested MENT SETTER HELPER * Dexter Cotto OT - 05/24/2024 2:01 PM CST Occupational Therapy Treatment Summary Chart reviewed for diagnosis and medical systems review. Nursing consented for OT. Explained purpose of OT and patient consented to participate in therapy. RECOMMENDATIONS/PLAN: Pt would benefit from continued OT during hospitalization in order to addressactivity tolerance, safety, and independence with self care tasks and functional mobility. Discharge OT Discharge Recommendations: Patient would benefit from intensive 3-hour multidisciplinary therapy This recommendation is made due to ongoing intensive OT functional needs: ability to actively participate in intensive therapy 3 hours/day, 5 days a week;patient has the need for more than one skilled therapy service;not at baseline due to impaired ability to complete ADL's;motivated to participatein therapy;likely to return to the community at discharge with support system;functional mobility is significantly below baseline;patient and/or caregiver require specialized training;patient demonstrates a significant functional decline and would benefit from skilled therapy intervention to restore function;patient has the ability to progress and demonstrate measurable gains as a result of skilled therapy Pt wanting to return home. If pt is to return home will need HH. Concerns for pt safety at home andability to safely maintain WB status. AM-PAC Daily Activity Raw Score:: 15 ADMIT: 1. Ulcer of left foot with other severity (HCC) 2. CHRISTIE (acute kidney injury) (HCC) 3. Left foot infection 4. Diagnosis unknown PPE worn by staff: gloves Precautions: Fall risk, LLE PWB through forefoot with walker, wound vac SUBJECTIVE: I want to go back home with my cats Psychosocial: Patient Behaviors: Calm;Cooperative Pt's goal for therapy: Return home OBJECTIVE: Pain Assessment: Pain Assessment Pain Scale/Observation: No/denies pain Cognition: Level of Consciousness-Adult: (Oriented x 4) Cognition: (Follows commands consistently) Attention Span: Appears intact Functional Mobility: Bed Mobility: Supine to Sit: Modified Ray Sit to Supine: Stand By Assist;Requires Verbal Cues for Safety Transfers: Sit to Stand: Minimal Assistance;Stand By Assist;Requires Verbal Cues for Safety;Requires Verbal Cues for Technique (PWB LLE through forefoot with walker) Stand to Sit: Stand By Assist;Minimal Assistance;Requires Verbal Cues for Safety Bed to Chair: Stand By Assist;Minimal Assistance to Right;Requires Verbal Cues for Technique (2nd person for safety) Type of Transfer: Stand Pivot Transfer Gait belt, 2WW ADL Tasks: Based on observation and clinical judgement Feeding: Set-up Oral Facial Hygiene: Set-up (Seated, pt declined performing standing at sink) Bathing: Moderate Assistance Upper Body Dressing: Minimal Assistance Lower Body Dressing: Moderate Assistance;Maximal Assistance (for BLE) Toileting: Total Assistance Activity Tolerance/Vital Signs: Activity Tolerance: Requires rest breaks Pt denies dizziness/SoB throughout session. Oxygen Therapy: RA ASSESSMENT: Pt in bed upon OT arrival, agreeable to therapy session. Pt participated in bed mobility, functional transfer training, LB dressing, and self care tasks with levels of assist noted above.Pt required extended time for bed mobility, transfers, and ADLs d/t generalized weakness. Educated pt on PWB through forefoot with 2WW. Pt verbalized understanding however was observed to WB through heel during transfer despite max verbal, tactile, and physical cues. Pt requires continued reinforcement for maintain LLE PWB through forefoot with 2WW. Concerns for pt safety at home. Pt completed ADLs from seated position d/t decreased endurance, strength, and PWB LLE through forefoot with 2WW. Ptlimited by pain, decreased activity tolerance, decreased knowledge of condition, impaired balance, and generalized weakness. Pt positioned for comfort in recliner at end of session with all immediateneeds met as OT departs. Call light and phone in reach with chair alarm activated. All lines, monitors, IV's, equipment in place and intact pre and post visit. RNRio, notified of patient's performance/location end of session. Educated patient/family in fall prevention, role of OT, ADLs, functional mobility, transfers, safety, energy conservation, PWB through forefoot with 2WW. Please refer to the Filed Flowsheet OT Treatment for further details. Refer to care plan for goals. If this is the last Occupational Therapy visit, this serves as the discharge summary. RALEIGH Renteria/Steffi [phone] MENT SETTER HELPER * Alma Rosa Barclay, PT - 05/24/2024 1:59 PM CST Physical Therapy Treatment Summary Chart review completed. Nursing consented for PT. Explained purpose of PT and patient consented to participate in therapy. RECOMMENDATIONS/PLAN: Continue skilled PT in acute care to maximize function and regain PLOF. PT Discharge Recommendations: Patient would benefit from ongoing therapy with home health This recommendation is made due to ongoing intensive PT functional needs: patient has the need for more than one skilled therapy service;motivated to participate in therapy;functional mobility is significantly below baseline;likely to return to the community at discharge with support system Recommended Transportation Method: Stretcher/Ambulance PPE worn by staff: gloves PPE worn by patient: gown - patient, clean;socks - clean AM-PAC Basic mobility score for this patient is Mobility Raw Score:: 17 SUBJECTIVE: Dr Quinn said he was going to order a boot for my R foot but did not know if it was going to be delivered to the hospital. Patient's Goal for the Day: improve mobility Pain Assessment: Pain Assessment Pain Scale/Observation: No/denies pain Pain Rating Score #1: 0 Sedation Level: 1-Awake and alert OBJECTIVE: Cognition: Level of Consciousness-Adult: (Oriented x4) Participation: Active Participation Attention Span: Appears intact Following Commands: Follows all commands and directions without difficulty Safety Judgement: Decreased awareness of need for assistance Awareness of Errors: Decreased awareness of deficits Precautions: Weight bearing: Ambulate Partial weight bearing through left forefoot with walker. Bed Mobility: Supine to Sit: Modified Ray Sit to Supine: Activity Does Not Occur Transfers: Sit to Stand: Supervision Stand to Sit: Supervision Transfer Device: Gait belt;Walker-Bariatric Mobility: Distance Ambulated (ft): 2 FEET Ambulation: Assistive Device: Gait Belt;Walker-Bariatric Ambulation: Level of Assistance: Stand By Assist;Requires Verbal Cues for Safety;Requires Verbal Cues for Technique Ambulation: Gait Deviations: Increased Weight Bearing through Upper Extremity;Step Length - Decreased Weight Bearing Status-LLE: Other (Comment) (Weight bearing: Ambulate Partial weight bearing throughleft forefoot with walker.) Balance: Sitting - Static: Good;Without Upper Extremity Support Sitting - Dynamic: Good;With One Upper Extremity Support Standing - Static: Fair +;With Both Upper Extremity's Support Activity Tolerance:on RA. Tolerates activity with rest period ASSESSMENT: Patient seen for PT and OT co-treatment d/t requiring assist of 2 skilled therapists tomaximize safety and participation in simultaneous functional mobility and ADLs. Patient resting in bed upon arrival, he completes supine> sit mod indep and progressed to standing with ww with supervision, PT/OT ed patient in L LE PWB thru forefoot - Patient has difficulty maintaining PWB status during transfers, noted WB on heel. PT instr patient in B LE ex in sitting. Dr Quinn contacted re ordering surgical shoe vs boot. Call light and phone in reach with chair alarm activated. All lines, monitors, IV's, equipment in place and intact pre and post visit. Pt educated in PT plan of care, fall precautions, and benefits of OOB activity. RN, notified of patient's performance/location end of session. Please refer to the Filed Flowsheet for further details. Refer to Plan of Care for PT goals. Mobility Status-White Board Mobility Status Communication-White Board Updated?: Yes If this is the last Physical Therapy visit, this note serves as the discharge summary. Pastora VEE [phone] MENT SETTER HELPER * Christel Barcenas RN - 05/24/2024 12:40 PM CST Care Coordination Progress Note Expected Discharge Date: 05/25/2024 Discharge Plan: TBD pt verbalize he wants to go home. Team recommendations are inpatient rehabilitation Per [place] liaison Anca P2P request voicemail: [phone] Deadline: 5 calendar days from receipt of denial which was received at 436pm on 05/23 Rationale- does not meet their criteria (does not have medically intensive condition that requires intensive rehab) Pt does have 2 back up SNF. He is now stating to he wants to go home and care for his cats and see his mother. Pt has required assistance from staff with adl's and has been unable to manage caringfor himself on his own here. Will go speak with patient. Family Support (Name and Phone): Extended Emergency Contact Information Primary Emergency Contact: CLARA HYATT Relation: Mother Secondary Emergency Contact: unknown(friend/pharmacist)Monse Unda Relation: None Transportation at Discharge: (cab or ambulance): READMISSION RISK SCORE is 13 at 12:40 PM 05/24/2024.: Name: Christel Barcenas RN Case Manager MENT SETTER HELPER * Latanya Sims, [facility] - 05/24/2024 11:41 AM CST Social Work Progress Note Discharge Plan Disposition: TBD. Update from [facility] [place] of [place] medicaid is req a P2P in order to determine for him to go to [place] or not. Team updated. P2P call at [phone]. Anca/ERIC updated on him being partial WB LLE with boot and walker. We will wait for PT note and thenhave doctor call for P2P. Deadline: 5 calendar days from receipt of denial which was received at 436pm on 05/23 PICC line placed this morning so PT cannot see him post 4 hours of line placement. Will try and seehim this afternoon. DIPIKA called [employer] [phone]. Found out that he DOES have a CM named Sally. The rep onthe phone with ar sent Sally an email with my information so Sally can reach out to me re: d/c assistance. Transportation: ambulance. [employer]. Anticipated Discharge Date: 05/25/2024 Contacts: Extended Emergency Contact Information Primary Emergency Contact: CLARA HYATT Relation: Mother Secondary Emergency Contact: unknown(friend/pharmacist)Monse Mobile Relation: None *Room visit with patient. He's anxious to get home to his 2 indoor cats and his mother before she passes away. I explained that in order for him to care for his mother and the cats, his health MUSTbe improved first. He's not even walking yet. He stated doctor came in and told him he can walk as long as the boot is on. Podiatry note on 05/23/24 does state: - Weight bearing: Ambulate Partial weight bearing through left forefoot with walker. I told him I'm also concerned about the IV antibiotics at home. He's under the impression someone from will come by to handle. I explained that's more than likely not going to be the case and he needs it for 6 weeks. SW updated team/therapy. They are going to try and work with him today. Picc line placed this morning so now NWB for 4 hours upper extremity due to line being placed. They will see him this afternoonnow. While I was in the room, Dr. Liao/ID came in. I explained that he's wanting to go home but not sure who would handle his q8 IV's. I also reminded her that a few b/u SNF's accepted as long as IV q12 or q24. She stated that the antibiotics can be changed if needed. SW will call his insurance to find out if he has a CM thru [employer]. He stated he does, but he cannot recall her name. Maybe she can assist with d/c. I encouraged him to work with PT when they come in and give 110% so we can send to his insurance and try to get them to approve AR. He does NOT want LTC. Comments: Name/Phone number: Latanya Sims, LEAD APPLIER , LEATHER PIECE INSPECTOR, MPH Extensions: [phone] MENT SETTER HELPER * Rio Schmitz RN - 05/24/2024 11:35 AM CST Problem: Fall Risk Goal: Fall risk and fall related injury risk are minimized (interventions related to the fall risk can be found in the flowsheet documentation) Outcome: Progressing Problem: Pain/Discomfort Goal: Patient exhibits reduced pain/discomfort as evidenced by pain scores Outcome: Progressing Goal: Patient uses pharmacological and non-pharmacological pain management strategies. Outcome: Progressing Goal: Patient verbalizes acceptable level of pain relief and ability to engage in desired activity. Outcome: Progressing Problem: Skin/Tissue Integrity - Adult Goal: Skin integrity remains intact Description: INTERVENTIONS: Outcome: Progressing MENT SETTER HELPER * Ursula Grider RN - 05/24/2024 11:30 AM CST Images from the original note were not included. Wound/qualitative researcher: Consultation for wound/skin care recommendations. Electronic record reviewed. Bedside assessment completed. According to physician's documented H&P upon admission Chief Complaint Foot pain History of Present Ilness 43yo M noncompliant Pt is a transfer [facility]. Pt preseneted with LLE wound. He hasbeen transferred for Podiatry services. Pt has been admitted for further evaluation and treatment. Pt seen and examined by me in his room 363. No fever. No chest pain. Pt tolerating PO. No new issuesas per RN. Pt rates his pain as 7/10 intensity, sharp in nature. Patient alert and oriented x4. Pt reports he is going to go to rehab. If pt ends up going home, then [employer] paperwork must be filled out for home wound vac delivery. Pt tolerated wound vac application well. Suction maintained at 125mmHg. Albumin 2.0 Matthew 18 Recommendations: 1. RN TO CHANGE DRESSING. Cleanse wound to left foot with Vashe and gauze. Pat dry. Apply Skin Preparound the wound, then picture frame around the wound using transparent drape to protect intact skin. Apply non-adherent Mepitel or Adaptic dressing to wound bed. Cut black foam to fit wound base andplace into wound. Cover sponge with trasparent drape, cut 2cm opening in drape before applying TRACpad. Set on continuous 125mmHG for [employer]. Document number of foam used. Change TTHSAT 2. Elevate LLE 3. Optimize Nutrition- Clinical Optical Goods Worker Consult 4. DM Management- Tight Glucose Control 5. This patient is at a higher risk for skin breakdown. Implement preventative measures such as pressure redistribution, reduce friction/sheer and reduce/relieve excessive moisture. Reduce Friction/Shear: 1.) Keep HOB below 30 degrees when medically feasible. 2.) Lift patient in bed with sheet or pad. DO NOT PULL OR DRAG 3.) Consider air transfer device to lift bariatric patient. Pressure Redistribution: 1.) Initiate turn schedule 2.) Use pillows or positioning wedge (avoid positioning directly on trochanter when using side lying position) 3.) Use only one pad or draw sheet under patient 4.) Keep pressure off heels- use pillows lengthwise under legs or heel protectors 5.) Inspect skin folds every shift 6.) Consider use of pressure redistribution mattress for patients with a stage 3 or 4 ulcers. 7.) Baratric surface for patients over 350 pounds. Reduce/relieve Excess Moisture: 1). Contain incontinence (e.g. rectal pouch, condom catheters, Min Catheter [if ordered] 2). Utilize skin protectant for perineal skin. Plan of care discussed with patient, and primary RN. 05/24/24 1130 Other Wound Left Foot Date/Time: 05/13/24 2334 Present on admission?: Yes Orientation: (c) Left Location: (c) Foot Wound Image Wound Bed Assessment Deep pink;Beefy red Wound Margin Undefined edges Franchesca-wound Skin Assessment Edema;Erythema/Red Exudate Description Large;Serosanguinous Dressing/Treatment Cleansed;Negative pressure wound therapy Dressing Status Changed Negative Pressure Wound Therapy Left;Plantar Foot Placement Date/Time: 05/24/24 1130 Orientation: Left;Plantar Location: Foot $ Application of Wound Vac (> 50cm) 1 Negative Pressure Dressing Status Initiatied Setting Continuous;125 mmHg Suction Dressing (@ Dressing change ONLY) 2 black foam Additional Treatment Mepitel in wound base MENT SETTER HELPER * Alma Rosa Barclay, PT - 05/24/2024 11:13 AM CST Attempted to see patient for physical therapy. Unable to complete visit due to patient has PICC line placed at 10:30- he is NWB R UE post procedure. PT contacted vascular surgery for specific orders when patient can resume WB R UE on ww. Pastora PT [phone] MENT SETTER HELPER * Anca Vines RN - 05/24/2024 9:19 AM CST [facility] rehab update: [facility] has denied pt for rehab P2P request voicemail: [phone] Deadline: 5 calendar days from receipt of denial which was received at 436pm on 05/23 Rationale- does not meet their criteria (does not have medically intensive condition that requires intensive rehab) [place] has notified team. Thank you for referral, Anca Vines RN, BSN, [place] Clinical Liaison [facility] cell: [phone] MENT SETTER HELPER * Hattie Liao MD - 05/24/2024 9:07 AM CST Infectious Diseases Consult Note Patient's Primary Care Physician: Nguyễn Bingham MD Reason for Consultation: foot ulcer Referring Physcian: No admitting provider for patient encounter. Name: Rene Hyatt Age: [age] year old 10 Chief Complaint/History of Present Illness Concerned about his cats if he had to go to rehab 1st Sp excisional debridement left foot 05/20, with rare skin jero Remains on cefepime/flagyl No new issues Objective: Review of Systems General: no fatigue/fever/chills Skin: no rashes/lesions Respiratory: no cough/sob Cardiovascular: no cp/palpitations Gastrointestinal: no nausea/diarrhea Genitourinary: no dysuria/hematuria Musculoskeletal: Left foot pain Exam Vitals: 05/23/24 1955 05/24/24 0013 05/24/24 0502 05/24/24 0740 BP: 143/81 161/83 121/64 124/68 Pulse: 98 98 100 (!) 110 Resp: 16 18 18 18 Temp: 98.5 ??F (36.9 ??C) 98.7 ??F (37.1 ??C) 98.6 ??F (37 ??C) 98.6 ??F (37 ??C) SpO2: 98% 97% 96% 99% Weight: Height: Temp (30hrs) Max:99.7 ??F (37.6 ??C) General appearance: Alert, no distress Lungs: clear to auscultation bilaterally Heart: regular rate and rhythm, S1, S2 normal, no murmur, Abdomen: soft, non-tender; bowel sounds normal Extremities: no edema Left foot wrapped Skin: no rash Lines: MEDICATIONS FOR CURRENT ENCOUNTER: SCHEDULED MEDICATIONS: artificial tears ophthalmic ointment, Each Eye, q8h atorvastatin (Lipitor) tablet 40 mg, Oral, AT BEDTIME buPROPion XL 24hr (Wellbutrin-XL) tablet 150 mg, Oral, QDAY cefepime (Maxipime) 2,000 mg in 0.9% NaCl IV 50 mL IVPB, Intravenous, q8h chlorhexidine (Peridex) 0.12 % oral solution 15 mL, Mouth/Throat, BID ferrous sulfate tablet 325 mg, Oral, QDAY AFTER LUNCH gabapentin (Neurontin) capsule 300 mg, Oral, TID heparin injection 7,500 Units, Subcutaneous, q8h insulin aspart (NovoLOG) pen 0-4 Units, Subcutaneous, AT BEDTIME insulin aspart (NovoLOG) pen 0-6 Units, Subcutaneous, TID WC insulin aspart (NovoLOG) pen 15 Units, Subcutaneous, TID WC insulin glargine (Lantus) pen 24 Units, Subcutaneous, AT BEDTIME metroNIDAZOLE (Flagyl) tablet 500 mg, Oral, q8h pantoprazole EC (Protonix) tablet 40 mg, Oral, QDAY polyethylene glycol 3350 (Miralax) packet 17 g, Oral, QDAY tamsulosin (Flomax) capsule 0.4 mg, Oral, QDAY [COMPLETED] sodium zirconium cyclosilicate (Lokelma) packet 10 g, Oral, Once Data Recent Labs Component Name 05/18/24 0338 05/17/24 0946 05/16/24 0309 WBC 14.5* 15.5* 21.7* HGB 7.7* 7.1* 7.3* HCT 24.7* 23.2* 23.6* PLTCOUNT 330 284 300 Recent Labs Component Name 05/24/24 0508 05/23/24 0333 05/22/24 0309 SODIUM 140 136 136 POTASSIUM 4.3 5.3* 4.7 CHLORIDE 111* 109* 108* CO2 23 22 23 BUN 26* 28* 28* CREATININE 1.33* 1.47* 1.38* GLUCOSE 123* 174* 153* CALCIUM 8.9 8.8 8.6 Recent Labs Component Name 05/24/24 0508 05/23/24 0333 05/22/24 0309 05/14/24 0403 09/17/23 1247 ALBUMIN 2.0* 1.9* 1.8* - - ALKPHOS - - - - 84 ALT - - - - 11 AST - - - - 12 - = values in this interval not displayed. No results for input(s): CDIFFTOXINAB in the last 98686 hours. No results for input(s): SEDRATE in the last 98950 hours. No results for input(s): CRP in the last 04247 hours. Recent Labs Component Name 05/14/24 0403 CK 136 . Recent Labs Component Name 05/16/24 0904 05/14/24 1706 VANCOPEAK 40.3* 25.0 Recent Labs Component Name 05/15/24 0013 09/17/23 1247 HGBA1C 6.6* 6.2* Recent Labs Component Name 05/16/24 1257 COLORUA Yellow CLARITYUA Turbid* SPECGRAVUA 1.016 PHUA 5.5 PROTEINUA 1+* BLOODUA 2+* LEUKOCYTEUA 75 MIKKI/uL* NITRITEUA Negative GLUCOSEUA Normal KETONEUA Trace* BILIRUBINUA Negative UROBILINUA Normal WBCUA 6-10* RBCUA None Seen BACTUA None Seen Microbiology Radiology Assessment --Ulcer of left foot Om 05/14 cx swab - morganella Xray- diffuse gas I hindfoot Mri -mild osteo of the lateral calcaneal tubercle Cultures with Morganella and group B strep Debridement to bone level 05/15 Path with acute osteomyelitis Cx GBS, Morganella, proteus, parvimonas and prevotella -- christie --Dm--uncontrolled --htn --anemia --anxiety, depression -- bph -- mo --non compliance Plan - deescalate to ceftriaxone, po flagyl, - podiatry on case, - monitoring labs - f.u bcx , wound cx - local care of wounds - follow up OR cultures from 05/20 pending 6 weeks of antibiotics Weekly CBC, CMP, UA, sed rate. Fax results [phone] Discussed with social worker clinical Hattie Liao MD MENT SETTER HELPER * Manpreet Stuart MD - 05/23/2024 3:17 PM CST Progress Note Admit Date: 05/13/2024 4:58 PM Hospital Day: 10 Clinical Course 43 y/o WM with h/o Morbid obesity, DM, Depression, GERD, BPH who was transferred from OSH 2/2 infected L foot ulcer and being managed for focal acute OM of the left foot s/p I&D on 05/15 by Podiatry and subsequently underwent a repeat debridement and graft placxement on 05/20/24. Intra Op cultures grew multiorganism. ID following and patient is on antibiotics. Nephrology following for CHRISTIE. New Symptoms Patient has no new symptoms HDS. Data Vitals: 05/22/24 1958 05/23/24 0434 05/23/24 0732 05/23/24 1144 BP: 141/75 136/77 144/84 146/86 Pulse: 103 102 98 99 Resp: 17 Temp: 98.5 ??F (36.9 ??C) 99.7 ??F (37.6 ??C) 97.7 ??F (36.5 ??C) 98.7 ??F (37.1 ??C) SpO2: 95% 98% 95% 94% Weight: Height: Intake/Output Summary (Last 24 hours) at 05/23/2024 1517 Last data filed at 05/23/2024 1337 Gross per 24 hour Intake 1820 ml Output 3000 ml Net -1180 ml My review of labs, imaging, notes and other tests shows no new significant findings. Recent Labs Component Name 05/18/24 0338 05/17/24 0946 05/16/24 0309 WBC 14.5* 15.5* 21.7* HGB 7.7* 7.1* 7.3* HCT 24.7* 23.2* 23.6* PLTCOUNT 330 284 300 Recent Labs Component Name 05/23/24 0333 05/22/24 0309 05/21/24 030 SODIUM 136 136 138 POTASSIUM 5.3* 4.7 5.2* CHLORIDE 109* 108* 110* CO2 22 23 24 BUN 28* 28* 29* CREATININE 1.47* 1.38* 1.48* GLUCOSE 174* 153* 179* CALCIUM 8.8 8.6 8.8 MEDICATIONS FOR CURRENT ENCOUNTER: SCHEDULED MEDICATIONS: artificial tears ophthalmic ointment, Each Eye, q8h atorvastatin (Lipitor) tablet 40 mg, Oral, AT BEDTIME buPROPion XL 24hr (Wellbutrin-XL) tablet 150 mg, Oral, QDAY cefepime (Maxipime) 2,000 mg in 0.9% NaCl IV 50 mL IVPB, Intravenous, q8h chlorhexidine (Peridex) 0.12 % oral solution 15 mL, Mouth/Throat, BID ferrous sulfate tablet 325 mg, Oral, QDAY AFTER LUNCH gabapentin (Neurontin) capsule 300 mg, Oral, TID heparin injection 7,500 Units, Subcutaneous, q8h insulin aspart (NovoLOG) pen 0-4 Units, Subcutaneous, AT BEDTIME insulin aspart (NovoLOG) pen 0-6 Units, Subcutaneous, TID WC insulin aspart (NovoLOG) pen 15 Units, Subcutaneous, TID WC insulin glargine (Lantus) pen 24 Units, Subcutaneous, AT BEDTIME metroNIDAZOLE (Flagyl) tablet 500 mg, Oral, q8h pantoprazole EC (Protonix) tablet 40 mg, Oral, QDAY polyethylene glycol 3350 (Miralax) packet 17 g, Oral, QDAY tamsulosin (Flomax) capsule 0.4 mg, Oral, QDAY CONTINUOUS MEDICATIONS: 0.9% NaCl flush bag, Intravenous, CONTINUOUS PRN PRN MEDICATIONS: Or Or 0.9% NaCl flush bag, Intravenous, CONTINUOUS PRN acetaminophen (Tylenol) tablet 650 mg, Oral, q6h PRN benzonatate (Tessalon) capsule 100 mg, Oral, TID PRN cyclobenzaprine (Flexeril) tablet 5 mg, Oral, TID PRN dextrose 10 % IV bolus, Intravenous, PRN dextrose 10 % IV bolus, Intravenous, PRN glucagon (Glucagen) injection 1 mg, Subcutaneous, PRN glucose (Diabetic Use) oral gel, Oral, PRN HYDROcodone-acetaminophen (Opal) 5-325 MG tablet 1 tablet, Oral, q4h PRN ondansetron (Zofran) injection 4 mg, Intravenous, q6h PRN Exam General appearance: alert, cooperative, no distress Heart: regular rhythm, normal S1 and S2, without murmurs, rubs or gallops Lungs: breath sounds normal and symmetric; no rales or wheezes Abdomen: soft without mass, non-tender, with normal bowel sounds Extremities: no clubbing, cyanosis or edema AYANNA; L foot wrapped with clean dressing Assessment and Plan Active Problems: Acute osteomyelitis (HCC) Ulcer of left foot with other severity (HCC) Sepsis (HCC) CHRISTIE (acute kidney injury) (HCC) Hyperkalemia Hyperglycemia # Sepsis 2/2 infected L diabetic foot ulcer (POA) #Acute osteomyelitis of the left calcenues -s/p Excisional Debridement of left foot wound skin on 05/15 and 2nd debridement of left foot wound with application of skin graft substitute on 05/20/24 --MONO WNL -1 st Intra op Culture yielded multiorganism: morgnella morhanni, prevotella, parvimonas,GBS, proteus. On cefepime, flagyl, ID following. - intra -op cultures from second procedure no growth thus far. -Leave graft intact until podiatry evaluation on 05/23 # CHRISTIE on CKD 2 #Mild hyperkalemia: -likely multifactorial from sepsis VS infection related GN Vs prerenal -Renal USS showed no evidence of hydronephrosis or medical renal disease, Fena < 1% -nephrology following. Off IVF. Encouraged oral intake -Likely has a new baseline around 1.4 -hold home ARB, continue Flomax -Lokelma 10 qday, low K diet # Anemia of chronic dx, POA -Hb stable, monitor h/h & transfuse PRBC if < 7 # DM, POA =Continue lantus 24U, novolog 15 u, Continue SSI -A1c 6.6% # GERD, POA == Continue PPI # Depression, POA == Continue Wellbutrin # BPH, POA == Continue Flomax Obesity -Optical Goods Worker following WEST -CPAP at night DVT prophylaxis :Heparin sq Dispo: [place]. Manpreet Stuart M.D [facility]. Internal Medicine MENT SETTER HELPER * Abby Quinn DPM - 05/23/2024 2:38 PM CST Admit Date: 05/13/2024 4:58 PM Hospital Day: 10 Name: Rene Hyatt Date: 05/23/2024 Medical Doctor: Nguyễn Bingham MD CC: Patient is seen at bedside for follow up for infection, and open ulceration left foot. HPI: Patient is S/P Surgical debridement of left foot wound with biopsy. Patient underwent surgical debridement on 05/15/24. Patient denies n/v/f/c, sob this am. The wound has been treated with Cefepime, and metronidazole, General: Alert and oriented x 3 Family History: No family history on file. Data Vitals: 05/22/24 1958 05/23/24 0434 05/23/24 0732 05/23/24 1144 BP: 141/75 136/77 144/84 146/86 Pulse: 103 102 98 99 Resp: 16 16 17 17 Temp: 98.5 ??F (36.9 ??C) 99.7 ??F (37.6 ??C) 97.7 ??F (36.5 ??C) 98.7 ??F (37.1 ??C) SpO2: 95% 98% 95% 94% Weight: Height: Temp (30hrs) Max:99.7 ??F (37.6 ??C) Filed Wts: 05/13/24 2213 Weight: (!) 183.9 kg (405 lb 6.4 oz) MEDICATIONS FOR CURRENT ENCOUNTER: SCHEDULED MEDICATIONS: artificial tears ophthalmic ointment, Each Eye, q8h atorvastatin (Lipitor) tablet 40 mg, Oral, AT BEDTIME buPROPion XL 24hr (Wellbutrin-XL) tablet 150 mg, Oral, QDAY cefepime (Maxipime) 2,000 mg in 0.9% NaCl IV 50 mL IVPB, Intravenous, q8h chlorhexidine (Peridex) 0.12 % oral solution 15 mL, Mouth/Throat, BID ferrous sulfate tablet 325 mg, Oral, QDAY AFTER LUNCH gabapentin (Neurontin) capsule 300 mg, Oral, TID heparin injection 7,500 Units, Subcutaneous, q8h insulin aspart (NovoLOG) pen 0-4 Units, Subcutaneous, AT BEDTIME insulin aspart (NovoLOG) pen 0-6 Units, Subcutaneous, TID WC insulin aspart (NovoLOG) pen 15 Units, Subcutaneous, TID WC insulin glargine (Lantus) pen 24 Units, Subcutaneous, AT BEDTIME metroNIDAZOLE (Flagyl) tablet 500 mg, Oral, q8h pantoprazole EC (Protonix) tablet 40 mg, Oral, QDAY polyethylene glycol 3350 (Miralax) packet 17 g, Oral, QDAY tamsulosin (Flomax) capsule 0.4 mg, Oral, QDAY CONTINUOUS MEDICATIONS: 0.9% NaCl flush bag, Intravenous, CONTINUOUS PRN PRN MEDICATIONS: Or Or 0.9% NaCl flush bag, Intravenous, CONTINUOUS PRN acetaminophen (Tylenol) tablet 650 mg, Oral, q6h PRN benzonatate (Tessalon) capsule 100 mg, Oral, TID PRN cyclobenzaprine (Flexeril) tablet 5 mg, Oral, TID PRN dextrose 10 % IV bolus, Intravenous, PRN dextrose 10 % IV bolus, Intravenous, PRN glucagon (Glucagen) injection 1 mg, Subcutaneous, PRN glucose (Diabetic Use) oral gel, Oral, PRN HYDROcodone-acetaminophen (Opal) 5-325 MG tablet 1 tablet, Oral, q4h PRN ondansetron (Zofran) injection 4 mg, Intravenous, q6h PRN Recent Labs Component Name 05/18/24 0338 05/17/24 0946 05/16/24 0309 WBC 14.5* 15.5* 21.7* HGB 7.7* 7.1* 7.3* HCT 24.7* 23.2* 23.6* PLTCOUNT 330 284 300 Recent Labs Component Name 05/23/24 0333 05/13/24 1830 09/17/23 1247 SODIUM 136 - - POTASSIUM 5.3* - 3.8 CHLORIDE 109* - - CO2 22 - 26 BUN 28* - 18 CREATININE 1.47* - 0.75 GLUCOSE 174* - 119* CALCIUM 8.8 - 9.6 ALBUMIN 1.9* - - ALKPHOS - - 84 ALT - - 11 AST - - 12 EGFR 60* - >90 - = values in this interval not displayed. No results for input(s): INR in the last 80448 hours. No results for input(s): PT in the last 34304 hours. No results for input(s): PTT in the last 95746 hours. GENERAL: Conversant; NAD PSYCHE: Alert and oriented to person, place, and time. Appropriate affect noted. EYES: PERRLA; No scleral icterus. Conjuctiva moist NECK: Supple; no masses. Trachea midline. No thyromegaly Patient Vitals for the past 24 hrs: Temp Pulse Resp BP 05/23/24 1144 98.7 ??F (37.1 ??C) 99 17 146/86 05/23/24 0732 97.7 ??F (36.5 ??C) 98 17 144/84 05/23/24 0434 99.7 ??F (37.6 ??C) 102 16 136/77 05/22/24 1958 98.5 ??F (36.9 ??C) 103 16 141/75 05/22/24 1751 98.6 ??F (37 ??C) 81 18 128/66 Dressings are c/d/I, no strikethrough Previous exam: Lower extremity VASCULAR: Dorsalis pedis pulses: Right 0/4 Left 0/4 Posterior tibial pulses: Right 0/4 Left 0/4 Patient shows: decreased hair growth thin atrophic skin No edema noted bilaterally LYMPHATICS: Lymphedema is noted bilaterally. No painful popliteal or inguinal nodes DERMATOLOGIC: Skin color and texture are: Ulceration located: Left foot There is a large open ulceration noted to the plantar aspect of left foot with granular wound base with graft intact. There continues to be franchesca wound erythema noted extending proximally to left calf. There is moderate serous drainage noted. There is no malodor noted. Size 15.0cmx 15.0cm x 2.5cm NEUROLOGIC: Protective Sensation is absent with 5.07 SWMF bilaterally at toes and MPJ levels Patient can not distinguish between sharp and dull. Proprioception is intact. MUSCULO: Manual Muscle strength is diminsihed in the anterior and posterior muscle groups bilateral feet andlower limbs. Blood Culture: Wound Culture: Arterial Doppler: Order Xray: COMPARISON: 03/06/2023 FINDINGS: No acute fracture or dislocation identified. Accessory ossicle at the base of the 5th metatarsal. No osseous cortical erosions. No radiopaque foreign body. Soft tissue gas within the hindfoot. Diffuse soft tissue swelling of the foot. IMPRESSION: Diffuse soft tissue swelling of the foot. Soft tissue gas within the hindfoot. No acute osseous abnormality. MRI: Ordered Culture Bone calcaneus Left 05/15/24 Collected 05/15/2024 16:33 Status: Preliminary result Visible to patient: No (not released) Dx: Left foot infection Specimen Information: Foot; Microbiology 0 Result Notes Culture Heavy Morganella morganii Critical Heavy Streptococcus agalactiae (Group B) Critical Rare Proteus vulgaris Critical Susceptibility testing of penicillin, other beta-lactam antibiotics, and vancomycin is not necessary for beta-hemolytic streptococci groups A,B,C and G because resistant strains have not been recognized. Surgical Description: Calcaneus Bone Left Foot Culture wound Left foot 05/15/24 Collected 05/15/2024 16:34 Status: Preliminary result Visible to patient: No (not released) Dx: Left foot infection Specimen Information: Foot; Microbiology 0 Result Notes Culture Rare Streptococcus agalactiae (Group B) Critical Susceptibility testing of penicillin, other beta-lactam antibiotics, and vancomycin is not necessary for beta-hemolytic streptococci groups A,B,C and G because resistant strains have not been recognized. Surgical Description: Left Foot Pathology: Biopsy taken 05/15/24. Final Diagnosis Bone, left calcaneus, debridement - Focal acute osteomyelitis Patient Glucose Bedside (mg/dL) in the past 24 hrs: 05/22/24 2124, Glucose Bedside (mg/dL):233 mg/dL 05/23/24 0732, Glucose Bedside (mg/dL):156 mg/dL 05/23/24 1144, Glucose Bedside (mg/dL):176 mg/dL ASSESSEMENT: 1. Surgical Debridement of left foot wound including bone biopsy 2. Infection left foot 3. Osteomyelitis left foot 4. Diabetic neuropathic ulceration - 5. PVD 6. Neuropathy 7. Diabetes Infection left foot/ Osteomyelitis left foot - Cefepime (Maxipime) 2,000mg every 8 hours - Metronidazole 500mg every 8 hours - Labs reviewed - ID/ IM to determine assisted Antibiotic therapy. S/P Surgical Debridement of left foot wound including bone biopsy Diabetic neuropathic ulceration left foot - Dressing instructions: Cover wound base with mepitel. Apply negative pressure device to left footwounds at 125mmhg continuous. Change dressing three times per day. - Weight bearing: Ambulate Partial weight bearing through left forefoot with walker. Neuropathy/ Type II Diabetes - Monitor blood glucose - Internal medicine following PLAN: Wound is stable. Culture and pathology results noted. Infectious disease on case. Antibiotic therapy per ID. Negative pressure device left foot. Weight bearing as noted above. Patient is at high risk for limb loss. 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 Attempted to see pt for OT initial eval, however pt current activity orders state complete bedrest with bathroom privileges . PT messaged Physician. Will need bed rest orders completed and updated activity orders placed when appropriate for pt to actively participate in skilled therapy. Will attempt to see pt at a later time/date when appropriate and with updated activity orders. Thank you for the referral, RALEIGH Renteria/Steffi [phone] 05/23/2024 MENT SETTER HELPER * Christel Barcenas RN - 05/23/2024 1:51 PM CST Care Coordination Progress Note Expected Discharge Date: 05/25/2024 Discharge Plan: [facility] vs SNF pending medical stability Barriers: CHRISTIE, PICC line placement, final antibiotic plan pending cultures 05/20 Family Support (Name and Phone): Extended Emergency Contact Information Primary Emergency Contact: CLARA HYATT Relation: Mother Transportation at Discharge: (cab or ambulance): READMISSION RISK SCORE is 13 at 1:51 PM 05/23/2024.: Name: Christel Barcenas RN Case Manager MENT SETTER HELPER * Katerina Weaver DO - 05/23/2024 10:46 AM CST Renal Follow-Up Note Name: Rene Hyatt Age: [age] year old Patient's Attending Physician: Manpreet Stuart MD Admit Date: 05/13/2024 4:58 PM Hospital Day: 10 Portions of this note were carried over from previous note, EHR template. I reviewed and updated asnecessary. Reason For Visit: L Foot OM New Symptoms His K went up again today. He does report some dietary non adherence with low K diet yesterday. Review of Systems: All other systems reviewed and are negative Physical Examination: Vitals: 05/22/24 1751 05/22/24 1958 05/23/24 0434 05/23/24 0732 BP: 128/66 141/75 136/77 144/84 Pulse: 81 103 102 98 Resp: 16 Temp: 98.6 ??F (37 ??C) 98.5 ??F (36.9 ??C) 99.7 ??F (37.6 ??C) 97.7 ??F (36.5 ??C) SpO2: 96% 95% 98% 95% Weight: Height: General appearance: alert, cooperative, obese Head: normocephalic, without trauma Resp : No distress, no creps Heart: regular rhythm, normal S1 and S2, Abdomen: soft without mass, non-tender, Extremities:L foot in bandages, bilateral LE edema Neurologic: mental status normal; alert and oriented X 3; Skin:No rashes noted Laboratory Data I have personally reviewed the following labs: Recent Labs Component Name 05/18/2433705/17/24 0946 05/16/24 030 WBC 14.5* 15.5* 21.7* HGB 7.7* 7.1* 7.3* HCT 24.7* 23.2* 23.6* PLTCOUNT 330 284 300 Recent Labs Component Name 05/23/24 03305/22/24 0309 05/21/24 0303 SODIUM 136 136 138 POTASSIUM 5.3* 4.7 5.2* CHLORIDE 109* 108* 110* CO2 22 24 BUN 28* 28* 29* CREATININE 1.47* 1.38* 1.48* GLUCOSE 174* 153* 179* CALCIUM 8.8 8.6 8.8 No results for input(s): MAGMGDL in the last 36678 hours. Recent Labs Component Name 05/23/24 0333 05/22/24 0309 05/21/24 0303 PHOS 3.7 4.0 4.2 Glucose Bedside (mg/dL): 156 mg/dL (05/23/24 0732) Intake/Output Summary (Last 24 hours) at 05/23/2024 1047 Last data filed at 05/23/2024 0838 Gross per 24 hour Intake 2180 ml Output 2425 ml Net -245 ml Medications-I have personally reviewed the medications listed below: artificial tears ophthalmic ointment, Each Eye, q8h atorvastatin (Lipitor) tablet 40 mg, Oral, AT BEDTIME buPROPion XL 24hr (Wellbutrin-XL) tablet 150 mg, Oral, QDAY cefepime (Maxipime) 2,000 mg in 0.9% NaCl IV 50 mL IVPB, Intravenous, q8h chlorhexidine (Peridex) 0.12 % oral solution 15 mL, Mouth/Throat, BID ferrous sulfate tablet 325 mg, Oral, QDAY AFTER LUNCH gabapentin (Neurontin) capsule 300 mg, Oral, TID heparin injection 7,500 Units, Subcutaneous, q8h insulin aspart (NovoLOG) pen 0-4 Units, Subcutaneous, AT BEDTIME insulin aspart (NovoLOG) pen 0-6 Units, Subcutaneous, TID WC insulin aspart (NovoLOG) pen 15 Units, Subcutaneous, TID WC insulin glargine (Lantus) pen 24 Units, Subcutaneous, AT BEDTIME metroNIDAZOLE (Flagyl) tablet 500 mg, Oral, q8h pantoprazole EC (Protonix) tablet 40 mg, Oral, QDAY polyethylene glycol 3350 (Miralax) packet 17 g, Oral, QDAY tamsulosin (Flomax) capsule 0.4 mg, Oral, QDAY [COMPLETED] sodium zirconium cyclosilicate (Lokelma) packet 10 g, Oral, QDAY at 1300 0.9% NaCl flush bag, Intravenous, CONTINUOUS PRN Or Or 0.9% NaCl flush bag, Intravenous, CONTINUOUS PRN acetaminophen (Tylenol) tablet 650 mg, Oral, q6h PRN benzonatate (Tessalon) capsule 100 mg, Oral, TID PRN cyclobenzaprine (Flexeril) tablet 5 mg, Oral, TID PRN dextrose 10 % IV bolus, Intravenous, PRN dextrose 10 % IV bolus, Intravenous, PRN glucagon (Glucagen) injection 1 mg, Subcutaneous, PRN glucose (Diabetic Use) oral gel, Oral, PRN HYDROcodone-acetaminophen (Opal) 5-325 MG tablet 1 tablet, Oral, q4h PRN ondansetron (Zofran) injection 4 mg, Intravenous, q6h PRN Assessment and Plan: #CHRISTIE on CKD 2 -Most likely due to ATN from sepsis of L foot with volume depletion in setting of RAAS blockage -Creatinine improved to baseline -Now able to maintain stable creatinine with PO intake ---No additional IVF administration ---Encourage PO intake and fluid intake ---Avoid nephrotoxins and hypotension ---Continue flomax #Hyperkalemia -Most likely due to renal dysfunction with component of dietary indiscretions -Explained importance of adhering to low K diet ---Maintain diet order Low K diet --Continue loklema 10g daily #Hypertension -Blood pressures better controlled ---Continue current regimen Discussed with Primary Team Katerina Weaver DO Office:[phone] Exchange: MENT SETTER HELPER * Alma Rosa Barclay, PT - 05/23/2024 10:41 AM CST PT deferred treatment this am. Physician orders/ activity orders 05/22/2024> Patient should be complete bed rest with bathroom privileges. Physician/RN notified. PT will defer therapy pending updated activity orders. Thank you Past[facility] PT [phone] MENT SETTER HELPER * Hattie Liao MD - 05/23/2024 10:04 AM CST Infectious Diseases Consult Note Patient's Primary Care Physician: Nguyễn Bingham MD Reason for Consultation: foot ulcer Referring Physcian: No admitting provider for patient encounter. Name: Rene Hyatt Age: [age] year old 9 Chief Complaint/History of Present Illness Chart reviewed Sp excisional debridement left foot 05/20, cultures pending Remains on cefepime/flagyl No new issues Objective: Review of Systems General: no fatigue/fever/chills Skin: no rashes/lesions Respiratory: no cough/sob Cardiovascular: no cp/palpitations Gastrointestinal: no nausea/diarrhea Genitourinary: no dysuria/hematuria Musculoskeletal: Left foot pain Exam Vitals: 05/22/24 1751 05/22/24 1958 05/23/24 0434 05/23/24 0732 BP: 128/66 141/75 136/77 144/84 Pulse: 81 103 102 98 Resp: Temp: 98.6 ??F (37 ??C) 98.5 ??F (36.9 ??C) 99.7 ??F (37.6 ??C) 97.7 ??F (36.5 ??C) SpO2: 96% 95% 98% 95% Weight: Height: Temp (30hrs) Max:99.7 ??F (37.6 ??C) General appearance: Alert, no distress Lungs: clear to auscultation bilaterally Heart: regular rate and rhythm, S1, S2 normal, no murmur, Abdomen: soft, non-tender; bowel sounds normal Extremities: no edema Left foot wrapped Skin: no rash Lines: MEDICATIONS FOR CURRENT ENCOUNTER: SCHEDULED MEDICATIONS: artificial tears ophthalmic ointment, Each Eye, q8h atorvastatin (Lipitor) tablet 40 mg, Oral, AT BEDTIME buPROPion XL 24hr (Wellbutrin-XL) tablet 150 mg, Oral, QDAY cefepime (Maxipime) 2,000 mg in 0.9% NaCl IV 50 mL IVPB, Intravenous, q8h chlorhexidine (Peridex) 0.12 % oral solution 15 mL, Mouth/Throat, BID ferrous sulfate tablet 325 mg, Oral, QDAY AFTER LUNCH gabapentin (Neurontin) capsule 300 mg, Oral, TID heparin injection 7,500 Units, Subcutaneous, q8h insulin aspart (NovoLOG) pen 0-4 Units, Subcutaneous, AT BEDTIME insulin aspart (NovoLOG) pen 0-6 Units, Subcutaneous, TID WC insulin aspart (NovoLOG) pen 15 Units, Subcutaneous, TID WC insulin glargine (Lantus) pen 24 Units, Subcutaneous, AT BEDTIME metroNIDAZOLE (Flagyl) tablet 500 mg, Oral, q8h pantoprazole EC (Protonix) tablet 40 mg, Oral, QDAY polyethylene glycol 3350 (Miralax) packet 17 g, Oral, QDAY tamsulosin (Flomax) capsule 0.4 mg, Oral, QDAY [COMPLETED] sodium zirconium cyclosilicate (Lokelma) packet 10 g, Oral, QDAY at 1300 Data Recent Labs Component Name 05/18/24 0338 05/17/24 0946 05/16/24 0309 WBC 14.5* 15.5* 21.7* HGB 7.7* 7.1* 7.3* HCT 24.7* 23.2* 23.6* PLTCOUNT 330 284 300 Recent Labs Component Name 05/23/24 0333 05/22/24 0309 05/21/24 030 SODIUM 136 136 138 POTASSIUM 5.3* 4.7 5.2* CHLORIDE 109* 108* 110* CO2 24 BUN 28* 28* 29* CREATININE 1.47* 1.38* 1.48* GLUCOSE 174* 153* 179* CALCIUM 8.8 8.6 8.8 Recent Labs Component Name 05/23/24 0333 05/22/24 0309 05/21/24 0303 05/14/24 0403 09/17/23 1247 ALBUMIN 1.9* 1.8* 1.7* - - ALKPHOS - - - - 84 ALT - - - - 11 AST - - - - 12 - = values in this interval not displayed. No results for input(s): CDIFFTOXINAB in the last 11318 hours. No results for input(s): SEDRATE in the last 94445 hours. No results for input(s): CRP in the last 73072 hours. Recent Labs Component Name 05/14/24 0403 CK 136 . Recent Labs Component Name 05/16/24 0904 05/14/24 1706 VANCOPEAK 40.3* 25.0 Recent Labs Component Name 05/15/24 0013 09/17/23 1247 HGBA1C 6.6* 6.2* Recent Labs Component Name 05/16/24 1257 COLORUA Yellow CLARITYUA Turbid* SPECGRAVUA 1.016 PHUA 5.5 PROTEINUA 1+* BLOODUA 2+* LEUKOCYTEUA 75 MIKKI/uL* NITRITEUA Negative GLUCOSEUA Normal KETONEUA Trace* BILIRUBINUA Negative UROBILINUA Normal WBCUA 6-10* RBCUA None Seen BACTUA None Seen Microbiology Radiology Assessment --Ulcer of left foot Om 05/14 cx swab - morganella Xray- diffuse gas I hindfoot Mri -mild osteo of the lateral calcaneal tubercle Cultures with Morganella and group B strep Debridement to bone level 05/15 Path with acute osteomyelitis Cx GBS, Morganella, proteus, parvimonas and prevotella -- christie --Dm--uncontrolled --htn --anemia --anxiety, depression -- bph -- mo --non compliance Plan - on cefepime, po flagyl, - podiatry on case, - monitoring labs - f.u bcx , wound cx - local care of wounds - follow up OR cultures from 05/20 pending Will need PICC line and 6 weeks of antibiotics Consult IV team Messaged with primary team Hattie Liao MD MENT SETTER HELPER * Latanya Sims, [facility] - 05/23/2024 9:06 AM CST Social Work Progress Note Discharge Plan Disposition: DIPIKA f/u with [facility]. [facility] insurance auth submitted on 05/18/24; however, Said there was a delay because the insurance listed on the face sheet stated commercial and he doesn't have commercial. Yes, he has a managed [place] medicaid plan; however, all of our face sheets state commercial insurance for some reason. And, she said that the insurance policy that was listed was inactive and they could not find a correct policy number? Although, last week I called [facility] directly and verified his insurance. DIPIKA also f/u today with [facility]. They can accept ONLY IF the IV is Q12 and not Q8. Right now, still appears he's on Cefepime Q8 with a start date of 05/14/24 and to go for 6 weeks. I let her know that [place]/rep [place] accepted in [facility] at both [facility] and [facility]. [facility] said that [facility] is currently full today (05/23/24). I let her know that our [facility] is apparently following him as first choice and SNF then back up. She said that they would not need a SNF auth from [facility]. I let her know that I do have a [facility] SNF auth fax number I was given in the past? Per [facility], [facility] pays the same whether there's an auth or not; but he will have to turn hisincome over on 06/08/24 if she goes to SNF. I let her know he's more than likely going to be against doing that. We will just see what happens with [facility] first. [facility] will be his BEST option if at all possible. DIPIKA updated [facility] that [facility] looks like would be best for him. Dr. Quinn re evaluation Thursday (05/23/24) - Weight bearing: Ambulate non weight bearing to left foot with walker. Per MDR today, patient has bedrest orders that need lifted so PT/OT can work with him and get notes in so [facility] can send off for auth. Still needs Picc line placed as well. Goal is d/c to [facility] tomorrow,Thu05/24/24. 3:48pm: still no lifted bedrest orders so PT/OT can work with patient. DIPIKA updated team; along with [facility]. Transportation: Transportation at discharge: (cab or ambulance) Anticipated Discharge Date: 05/25/2024 Contacts: Extended Emergency Contact Information Primary Emergency Contact: CLARA HYATT Relation: Mother Comments: Name/Phone number: Latanya Sims LCSW , [employer], MPH Extensions: [phone] MENT SETTER HELPER * Josephine Nation RN - 05/22/2024 11:26 PM CST Problem: Fall Risk Goal: Fall risk and fall related injury risk are minimized (interventions related to the fall risk can be found in the flowsheet documentation) Outcome: Progressing Problem: Pain/Discomfort Goal: Patient exhibits reduced pain/discomfort as evidenced by pain scores Outcome: Progressing Goal: Patient uses pharmacological and non-pharmacological pain management strategies. Outcome: Progressing Goal: Patient verbalizes acceptable level of pain relief and ability to engage in desired activity. Outcome: Progressing Problem: Nutrient: Increased nutrient needs (specify) Goal: Total intake will meet estimated nutrient needs Outcome: Progressing Problem: Hematologic - Adult Goal: Maintains hematologic stability Description: INTERVENTIONS: Outcome: Progressing Problem: Skin/Tissue Integrity - Adult Goal: Skin integrity remains intact Description: INTERVENTIONS: Outcome: Progressing Goal: Incisions, wounds, or drain sites healing without S/S of infection Description: INFECTIONS: Outcome: Progressing Goal: Oral mucous membranes remain intact Description: INTERVENTIONS: Outcome: Progressing Problem: General Goal: STG-Patient will Description: Complete toileting task with SBA while adhering to precautions Outcome: Progressing Goal: STG-Patient will Description: Complete 1-2 grooming tasks standing with SBA while adhering to precautions Outcome: Progressing Goal: STG-Patient will Description: Complete LB dressing with min A while adhering to precautions Outcome: Progressing MENT SETTER HELPER * Mason, José Luis Stevenson DPM - 05/22/2024 6:00 PM CST Admit Date: 05/13/2024 4:58 PM Hospital Day: 9 Name: Rene Hyatt Date: 05/22/24 Medical Doctor: Nguyễn Bingham MD CC: Patient is seen at bedside for follow up for infection, and open ulceration left foot. HPI: Patient is S/P Surgical debridement of left foot wound with biopsy. Patient underwent surgical debridement on 05/15/24. Patient denies n/v/f/c, sob this am. The wound has been treated with Cefepime, and metronidazole, 05/22/24: seen at bedside today, NAEO since surgery General: Alert and oriented x 3 Family History: No family history on file. Data Vitals: 05/22/24 0904 05/22/24 0915 05/22/24 0945 05/22/24 1751 BP: 141/84 149/91 131/79 128/66 Pulse: 95 81 Resp: 19 18 Temp: 98.5 ??F (36.9 ??C) 98.6 ??F (37 ??C) SpO2: 95% 96% Weight: Height: Temp (30hrs) Max:98.6 ??F (37 ??C) Filed Wts: 05/13/24 2213 Weight: (!) 183.9 kg (405 lb 6.4 oz) MEDICATIONS FOR CURRENT ENCOUNTER: SCHEDULED MEDICATIONS: artificial tears ophthalmic ointment, Each Eye, q8h atorvastatin (Lipitor) tablet 40 mg, Oral, AT BEDTIME buPROPion XL 24hr (Wellbutrin-XL) tablet 150 mg, Oral, QDAY cefepime (Maxipime) 2,000 mg in 0.9% NaCl IV 50 mL IVPB, Intravenous, q8h chlorhexidine (Peridex) 0.12 % oral solution 15 mL, Mouth/Throat, BID ferrous sulfate tablet 325 mg, Oral, QDAY AFTER LUNCH gabapentin (Neurontin) capsule 300 mg, Oral, TID heparin injection 7,500 Units, Subcutaneous, q8h insulin aspart (NovoLOG) pen 0-4 Units, Subcutaneous, AT BEDTIME insulin aspart (NovoLOG) pen 0-6 Units, Subcutaneous, TID WC insulin aspart (NovoLOG) pen 15 Units, Subcutaneous, TID WC insulin glargine (Lantus) pen 24 Units, Subcutaneous, AT BEDTIME metroNIDAZOLE (Flagyl) tablet 500 mg, Oral, q8h pantoprazole EC (Protonix) tablet 40 mg, Oral, QDAY polyethylene glycol 3350 (Miralax) packet 17 g, Oral, QDAY tamsulosin (Flomax) capsule 0.4 mg, Oral, QDAY [COMPLETED] sodium zirconium cyclosilicate (Lokelma) packet 10 g, Oral, QDAY at 1300 CONTINUOUS MEDICATIONS: 0.9% NaCl flush bag, Intravenous, CONTINUOUS PRN PRN MEDICATIONS: Or Or 0.9% NaCl flush bag, Intravenous, CONTINUOUS PRN acetaminophen (Tylenol) tablet 650 mg, Oral, q6h PRN benzonatate (Tessalon) capsule 100 mg, Oral, TID PRN cyclobenzaprine (Flexeril) tablet 5 mg, Oral, TID PRN dextrose 10 % IV bolus, Intravenous, PRN dextrose 10 % IV bolus, Intravenous, PRN glucagon (Glucagen) injection 1 mg, Subcutaneous, PRN glucose (Diabetic Use) oral gel, Oral, PRN HYDROcodone-acetaminophen (Opal) 5-325 MG tablet 1 tablet, Oral, q4h PRN ondansetron (Zofran) injection 4 mg, Intravenous, q6h PRN Recent Labs Component Name 05/18/24 0338 05/17/24 0946 05/16/24 0309 WBC 14.5* 15.5* 21.7* HGB 7.7* 7.1* 7.3* HCT 24.7* 23.2* 23.6* PLTCOUNT 330 284 300 Recent Labs Component Name 05/22/24 0309 05/13/24 1830 09/17/23 1247 SODIUM 136 - - POTASSIUM 4.7 - 3.8 CHLORIDE 108* - - CO2 23 - 26 BUN 28* - 18 CREATININE 1.38* - 0.75 GLUCOSE 153* - 119* CALCIUM 8.6 - 9.6 ALBUMIN 1.8* - - ALKPHOS - - 84 ALT - - 11 AST - - 12 EGFR 65* - >90 - = values in this interval not displayed. No results for input(s): INR in the last 37778 hours. No results for input(s): PT in the last 33535 hours. No results for input(s): PTT in the last 03874 hours. GENERAL: Conversant; NAD PSYCHE: Alert and oriented to person, place, and time. Appropriate affect noted. EYES: PERRLA; No scleral icterus. Conjuctiva moist NECK: Supple; no masses. Trachea midline. No thyromegaly Patient Vitals for the past 24 hrs: Temp Pulse Resp BP SpO2 05/22/24 1751 98.6 ??F (37 ??C) 81 18 128/66 96 % 05/22/24 0945 98.5 ??F (36.9 ??C) 95 19 131/79 95 % 05/22/24 0915 -- -- -- 149/91 -- 05/22/24 0904 -- -- -- 141/84 -- 05/22/24 0342 98.5 ??F (36.9 ??C) 88 16 138/82 93 % 05/21/244 98.2 ??F (36.8 ??C) 89 20 140/83 95 % Dressings are c/d/I, no strikethrough Previous exam: Lower extremity VASCULAR: Dorsalis pedis pulses: Right 0/4 Left 0/4 Posterior tibial pulses: Right 0/4 Left 0/4 Patient shows: decreased hair growth thin atrophic skin No edema noted bilaterally LYMPHATICS: Lymphedema is noted bilaterally. No painful popliteal or inguinal nodes DERMATOLOGIC: Skin color and texture are: Ulceration located: Left foot There is a large open ulceration noted to the plantar aspect of left foot with granular wound base and < graft intact. There continues to be franchesca wound erythema noted extending proximally to left calf. There is moderate serous drainage noted. There is no malodor noted. Size 11.0cmx 15.0cm x 2.5cm NEUROLOGIC: Protective Sensation is absent with 5.07 SWMF bilaterally at toes and MPJ levels Patient can not distinguish between sharp and dull. Proprioception is intact. MUSCULO: Manual Muscle strength is diminsihed in the anterior and posterior muscle groups bilateral feet andlower limbs. Blood Culture: Wound Culture: Arterial Doppler: Order Xray: COMPARISON: 03/06/2023 FINDINGS: No acute fracture or dislocation identified. Accessory ossicle at the base of the 5th metatarsal. No osseous cortical erosions. No radiopaque foreign body. Soft tissue gas within the hindfoot. Diffuse soft tissue swelling of the foot. IMPRESSION: Diffuse soft tissue swelling of the foot. Soft tissue gas within the hindfoot. No acute osseous abnormality. MRI: Ordered Culture Bone calcaneus Left 05/15/24 Collected 05/15/2024 16:33 Status: Preliminary result Visible to patient: No (not released) Dx: Left foot infection Specimen Information: Foot; Microbiology 0 Result Notes Culture Heavy Morganella morganii Critical Heavy Streptococcus agalactiae (Group B) Critical Rare Proteus vulgaris Critical Susceptibility testing of penicillin, other beta-lactam antibiotics, and vancomycin is not necessary for beta-hemolytic streptococci groups A,B,C and G because resistant strains have not been recognized. Surgical Description: Calcaneus Bone Left Foot Culture wound Left foot 05/15/24 Collected 05/15/2024 16:34 Status: Preliminary result Visible to patient: No (not released) Dx: Left foot infection Specimen Information: Foot; Microbiology 0 Result Notes Culture Rare Streptococcus agalactiae (Group B) Critical Susceptibility testing of penicillin, other beta-lactam antibiotics, and vancomycin is not necessary for beta-hemolytic streptococci groups A,B,C and G because resistant strains have not been recognized. Surgical Description: Left Foot Pathology: Biopsy taken 05/15/24. Awaiting results. Patient Glucose Bedside (mg/dL) in the past 24 hrs: 05/18/241948, Glucose Bedside (mg/dL):249 mg/dL 05/19/24 0728, Glucose Bedside (mg/dL):172 mg/dL 05/19/24 1209, Glucose Bedside (mg/dL):177 mg/dL 05/19/24 1718, Glucose Bedside (mg/dL):173 mg/dL ASSESSEMENT: 1. Surgical Debridement of left foot wound including bone biopsy 2. Infection left foot 3. Osteomyelitis left foot 4. Diabetic neuropathic ulceration - 5. PVD 6. Neuropathy 7. Diabetes Infection left foot/ Osteomyelitis left foot - Cefepime (Maxipime) 2,000mg every 8 hours - Metronidazole 500mg every 8 hours - Labs reviewed S/P Surgical Debridement of left foot wound including bone biopsy Diabetic neuropathic ulceration left foot - Dressing instructions: Graft intact, may leave intact 3d until Dr. Quinn re evaluation Thursday - Weight bearing: Ambulate non weight bearing to left foot with walker. Neuropathy/ Type II Diabetes - Monitor blood glucose - Internal medicine following PLAN: S/p rocedure: Debridement of left foot wound with possible application of skin graft substitute 2 Days Post-Op Patient is at high risk for limb loss. 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 Nursing consented for PT. Explained purpose of PT and patient consented to participate in therapy. RECOMMENDATIONS/PLAN: PT Discharge Recommendations: Patient would benefit from intensive 3-hour multidisciplinary therapy This recommendation is made due to ongoing intensive PT functional needs: patient has the need for more than one skilled therapy service;motivated to participate in therapy;functional mobility is significantly below baseline;likely to return to the community at discharge with support system Recommended Transportation Method: Stretcher/Ambulance PPE worn by staff: gloves;mask - procedural PPE worn by patient: gown - patient, clean;socks - clean AM-PAC Basic mobility score for this patient is Mobility Raw Score:: 15 SUBJECTIVE: Subjective: Pt wants to know what all he has to do to get approved for rehab. Pain Assessment: Pain Assessment Pain Scale/Observation: 0-10 Pain Rating Score #1: (shoots occasionally, up to 7/10) Sedation Level: 1-Awake and alert Non-Pharmacological Intervention: Rest OBJECTIVE: Cognition: Participation: Active Participation Attention Span: Appears intact Memory: Appears intact Following Commands: Follows all commands and directions without difficulty Safety Judgement: Good awareness of safety precautions Precautions: fall risk, high risk behavior alert Bed Mobility: Supine to Sit: Modified Ray Sit to Supine: Activity Does Not Occur Transfers: Sit to Stand: Minimal Assistance;Stand By Assist;Requires Verbal Cues for Safety;Requires Verbal Cues for Technique Stand to Sit: Stand By Assist;Minimal Assistance;Requires Verbal Cues for Safety Bed to Chair: Stand By Assist;Minimal Assistance to Right;Requires Verbal Cues for Technique (2nd person for safety) Type of Transfer: Stand Pivot Transfer Transfer Device: Gait belt;Walker-Bariatric Mobility: Ambulation: Level of Assistance: Activity Does Not Occur Weight Bearing Status-LLE: Other (Comment) (Heel WB) Activity Tolerance: Activity Tolerance: Requires rest breaks Vital signs: BP taken on right UE 05/22/24 0904 05/22/24 0915 Vital Signs BP 141/84 149/91 MAP 103 110 BP Location Right arm Right arm BP Method Automatic Automatic Patient Position Lying Lying Exercise: 05/22/24 1028 Knee & Hip Exercises Other Exercise #1 Other Exercise #2 seated august ASSESSMENT: Assessment: Pt was agreeable to OOB activity to transfer to bedside chair. Encouraged more OOB activity with nursing staff and to return to baseline toileting activities to begin improving independence. Pt requires cuing to maintain precautions but navigates NWB (because heel WB is painful) well with the use of 2WW. Call light and phone in reach with bed alarm activated. All lines, monitors, IV's, equipment in place and intact pre and post visit. Pt educated in PT plan of care, fall precautions, and benefits of OOB activity. Please refer to the Filed Flowsheet for further details. Refer to Plan of Care for PT goals. Mobility Status-White Board Mobility Status Communication-White Board Updated?: Yes If this is the last Physical Therapy visit, this note serves as the discharge summary. Gisela Rodríguez, PT, DPT MENT SETTER HELPER * Mignon Alvarez LPN - 05/22/2024 9:34 AM CST Problem: Fall Risk Goal: Fall risk and fall related injury risk are minimized (interventions related to the fall risk can be found in the flowsheet documentation) Outcome: Progressing Problem: Pain/Discomfort Goal: Patient exhibits reduced pain/discomfort as evidenced by pain scores Outcome: Progressing Problem: Nutrient: Increased nutrient needs (specify) Goal: Total intake will meet estimated nutrient needs Outcome: Progressing Problem: Skin/Tissue Integrity - Adult Goal: Skin integrity remains intact Description: INTERVENTIONS: Outcome: Progressing MENT SETTER HELPER * Luis Alfredo Cisneros MD - 05/22/2024 9:30 AM CST Infectious Diseases Consult Note Patient's Primary Care Physician: Nguyễn Bingham MD Reason for Consultation: foot ulcer Referring Physcian: No admitting provider for patient encounter. Name: Rene Hyatt Age: [age] year old 8 Chief Complaint/History of Present Illness No fevers Improving wbc Sp excisional debridement left foot 05/20, cultures pending Remains on cefepime/flagyl No new issues Objective: Review of Systems General: no fatigue/fever/chills Skin: no rashes/lesions Respiratory: no cough/sob Cardiovascular: no cp/palpitations Gastrointestinal: no nausea/diarrhea Genitourinary: no dysuria/hematuria Musculoskeletal: Left foot pain Exam Vitals: 05/21/24 2034 05/22/24 0342 05/22/24 0904 05/22/24 0915 BP: 140/83 138/82 141/84 149/91 Pulse: 89 88 Resp: 20 16 Temp: 98.2 ??F (36.8 ??C) 98.5 ??F (36.9 ??C) SpO2: 95% 93% Weight: Height: Temp (30hrs) Max:98.8 ??F (37.1 ??C) General appearance: Alert, no distress Lungs: clear to auscultation bilaterally Heart: regular rate and rhythm, S1, S2 normal, no murmur, Abdomen: soft, non-tender; bowel sounds normal Extremities: no edema Left foot wrapped Skin: no rash Lines: MEDICATIONS FOR CURRENT ENCOUNTER: SCHEDULED MEDICATIONS: artificial tears ophthalmic ointment, Each Eye, q8h atorvastatin (Lipitor) tablet 40 mg, Oral, AT BEDTIME buPROPion XL 24hr (Wellbutrin-XL) tablet 150 mg, Oral, QDAY cefepime (Maxipime) 2,000 mg in 0.9% NaCl IV 50 mL IVPB, Intravenous, q8h chlorhexidine (Peridex) 0.12 % oral solution 15 mL, Mouth/Throat, BID ferrous sulfate tablet 325 mg, Oral, QDAY AFTER LUNCH gabapentin (Neurontin) capsule 300 mg, Oral, TID heparin injection 7,500 Units, Subcutaneous, q8h insulin aspart (NovoLOG) pen 0-4 Units, Subcutaneous, AT BEDTIME insulin aspart (NovoLOG) pen 0-6 Units, Subcutaneous, TID WC insulin aspart (NovoLOG) pen 15 Units, Subcutaneous, TID WC insulin glargine (Lantus) pen 24 Units, Subcutaneous, AT BEDTIME metroNIDAZOLE (Flagyl) tablet 500 mg, Oral, q8h pantoprazole EC (Protonix) tablet 40 mg, Oral, QDAY polyethylene glycol 3350 (Miralax) packet 17 g, Oral, QDAY sodium zirconium cyclosilicate (Lokelma) packet 10 g, Oral, QDAY at 1300 tamsulosin (Flomax) capsule 0.4 mg, Oral, QDAY Data Recent Labs Component Name 05/18/24 0338 05/17/24 0946 05/16/24 0309 WBC 14.5* 15.5* 21.7* HGB 7.7* 7.1* 7.3* HCT 24.7* 23.2* 23.6* PLTCOUNT 330 284 300 Recent Labs Component Name 05/22/2430805/21/24 0303 05/20/24 0309 SODIUM 136 138 136 POTASSIUM 4.7 5.2* 4.8 CHLORIDE 108* 110* 109* CO2 BUN 28* 29* 33* CREATININE 1.38* 1.48* 1.44* GLUCOSE 153* 179* 167* CALCIUM 8.6 8.8 8.6 Recent Labs Component Name 05/22/24 0309 05/21/24 0303 05/20/24 0309 05/14/24 0403 09/17/23 1247 ALBUMIN 1.8* 1.7* 1.7* - - ALKPHOS - - - - 84 ALT - - - - 11 AST - - - - 12 - = values in this interval not displayed. No results for input(s): CDIFFTOXINAB in the last 55471 hours. No results for input(s): SEDRATE in the last 83763 hours. No results for input(s): CRP in the last 10571 hours. Recent Labs Component Name 05/14/24 0403 CK 136 . Recent Labs Component Name 05/16/24 0904 05/14/24 1706 VANCOPEAK 40.3* 25.0 Recent Labs Component Name 05/15/24 0013 09/17/23 1247 HGBA1C 6.6* 6.2* Recent Labs Component Name 05/16/24 1257 COLORUA Yellow CLARITYUA Turbid* SPECGRAVUA 1.016 PHUA 5.5 PROTEINUA 1+* BLOODUA 2+* LEUKOCYTEUA 75 MIKKI/uL* NITRITEUA Negative GLUCOSEUA Normal KETONEUA Trace* BILIRUBINUA Negative UROBILINUA Normal WBCUA 6-10* RBCUA None Seen BACTUA None Seen Microbiology Radiology Assessment --Ulcer of left foot Om 05/14 cx swab - morganella Xray- diffuse gas I hindfoot Mri -mild osteo of the lateral calcaneal tubercle Cultures with Morganella and group B strep Debridement to bone level 05/15 Path with acute osteomyelitis Cx GBS, Morganella, proteus, parvimonas and prevotella -- christie --Dm--uncontrolled --htn --anemia --anxiety, depression -- bph -- mo --non compliance Plan - on cefepime, po flagyl, - podiatry on case, - monitoring labs - f.u bcx , wound cx - local care of wounds - follow up OR cultures from 05/20 pending Will need PICC line and 6 weeks of antibiotics Line to be placed after last surgery Luis Alfredo Cisneros MD MENT SETTER HELPER * Tamara Gordon, OT - 05/22/2024 9:28 AM CST Occupational Therapy Treatment Summary Chart reviewed for diagnosis and medical systems review. Nursing consented for OT. Explained purpose of OT and patient consented to participate in therapy. Admitted; 1. Ulcer of left foot with other severity ([facility]) 2. CHRISTIE (acute kidney injury) ([facility]) 3. Left foot infection 4. Diagnosis unknown RECOMMENDATIONS/PLAN: Pt will benefit from continued skilled OT services to address functional deficits and return to PLOF. Continue per POC. OT Discharge Recommendations: Patient would benefit from intensive 3-hour multidisciplinary therapy This recommendation is made due to ongoing intensive OT functional needs: ability to actively participate in intensive therapy 3 hours/day, 5 days a week;patient has the need for more than one skilled therapy service;not at baseline due to impaired ability to complete ADL's;motivated to participatein therapy;likely to return to the community at discharge with support system;functional mobility is significantly below baseline;patient and/or caregiver require specialized training;patient demonstrates a significant functional decline and would benefit from skilled therapy intervention to restore function;patient has the ability to progress and demonstrate measurable gains as a result of skilled therapy PPE worn by staff: gloves;mask - procedural PPE worn by patient: gown - patient, clean;socks - clean AM-PAC Daily Activity score for this patient is Daily Activity Raw Score:: 15 Precautions: Fall risk, partial WB through L heel for transfers. SUBJECTIVE: I want to work hard, I want to go to rehab Psychosocial: Pt's goal for therapy: OOB activity, don clean clothes OBJECTIVE: Pain Assessment: Pain Assessment Pain Scale/Observation: No/denies pain Pain Rating Score #1: 0 (During session, reports no pain. Says he has occasional shooting pains in LLE) Cognition: Level of Consciousness-Adult: (AO x4) Functional Mobility: Bed Mobility: Supine to Sit: Modified Ray Sit to Supine: Activity Does Not Occur Transfers: Sit to Stand: Minimal Assistance;Stand By Assist;Requires Verbal Cues for Safety;Requires Verbal Cues for Technique Stand to Sit: Stand By Assist;Minimal Assistance;Requires Verbal Cues for Safety Bed to Chair: Stand By Assist;Minimal Assistance to Right;Requires Verbal Cues for Technique (second person stand by for safety) Type of Transfer: Stand Pivot Transfer ADL Tasks: Feeding: Activity Does Not Occur (anticipated setup) Oral Facial Hygiene: Set-up (from sitting) Bathing: Activity Does Not Occur Upper Body Dressing: Stand By Assist (soffing/donning gown sitting EOB) Lower Body Dressing: Stand By Assist (doffing/donning sock on R foot) Toileting: Activity Does Not Occur (anticipated max A) RUE Assessment: AROM - Right Upper Extremity: Within Functional Limits Strength - Right Upper Extremity: Within Functional Limits Industrial 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 Strength:Industrial 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 Strength - Right Upper Extremity: WFL LUE Assessment: AROM - Left Upper Extremity: Within Functional Limits Strength - Left Upper Extremity: Within Functional Limits Industrial 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 Strength:Industrial 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 Strength - Left Upper Extremity: WFL: Activity Tolerance: Activity Tolerance: Requires rest breaks BP: 149/91 Vital signs: BP taken on R UE 05/22/24 0904 05/22/24 0915 Activity Tolerance Activity Tolerance Requires rest breaks -- BP 141/84 149/91 MAP 103 110 Notes from Vital Signs: Required rest breaks during session due to impaired activity tolerance. ASSESSMENT: Patient seen for PT and OT co-treat d/t requiring assist of 2 skilled therapists to maximize safetyand participation in simultaneous assessment of functional mobility and ADLs. Pt supine in bed at start of session, agreeable and motivated to participate in skilled OT services. Pt educated on new WB precautions, able to partially bear weight through left heel for transfers, Pt verbalizes understanding and demonstrates appropriate adherence to WB precautions throughout session. Pt sat EOB with mod I, doffed/donned UB clothing with SBA. Pt transferred from bed to recliner on the right with SBA/min A x1, verbal cues for technique or safety. Second person needed for SBA forsafety. In chair, Pt doffed/donned R sock using figure 4 positioning of R leg with SBA and completed grooming tasks in chair with setup. Pt demonstrates improvements towards goals, however continued to be limited in ADL independence dueto functional deficits. Call light and phone in reach. All lines, monitors, IV's, equipment in place and intact pre and post visit. RNMignon, notified of patient's performance/location end of session.. Educated patient/family in WB precautions, safe functional transfers. Please refer to the Filed Flowsheet OT Treatment for further details. Refer to care plan for goals. If this is the last Occupational Therapy visit, this serves as the discharge summary. YURIDIA Dunham [id number] MENT SETTER HELPER * Manpreet Stuart MD - 05/22/2024 8:47 AM CST Progress Note Admit Date: 05/13/2024 4:58 PM Hospital Day: 9 Clinical Course 43 y/o WM with h/o Morbid obesity, DM, Depression, GERD, BPH who was transferred from OSH 2/2 infected L foot ulcer and being managed for focal acute OM of the left foot s/p I&D on 05/15 by Podiatry and subsequently underwent a repeat debridement and graft placxement on 05/20/24. Intra Op cultures grew multiorganism. ID following and patient is on antibiotics. Nephrology following for CHRISTIE. New Symptoms Patient has no new symptoms HDS. Data Vitals: 05/21/24 1200 05/21/24 1724 05/21/244 05/22/24 0342 BP: 147/80 140/83 138/82 Pulse: 90 89 88 Resp: 18 20 16 Temp: 98.8 ??F (37.1 ??C) 98.4 ??F (36.9 ??C) 98.2 ??F (36.8 ??C) 98.5 ??F (36.9 ??C) SpO2: 95% 95% 93% Weight: Height: Intake/Output Summary (Last 24 hours) at 05/22/2024 0847 Last data filed at 05/22/2024 0638 Gross per 24 hour Intake 720 ml Output 2800 ml Net -2080 ml My review of labs, imaging, notes and other tests shows no new significant findings. Recent Labs Component Name 05/18/24 0338 05/17/24 0946 05/16/24 0309 WBC 14.5* 15.5* 21.7* HGB 7.7* 7.1* 7.3* HCT 24.7* 23.2* 23.6* PLTCOUNT 330 284 300 Recent Labs Component Name 05/22/24 0309 05/21/24 0303 05/20/24 0309 SODIUM 136 138 136 POTASSIUM 4.7 5.2* 4.8 CHLORIDE 108* 110* 109* CO2 24 23 BUN 28* 29* 33* CREATININE 1.38* 1.48* 1.44* GLUCOSE 153* 179* 167* CALCIUM 8.6 8.8 8.6 MEDICATIONS FOR CURRENT ENCOUNTER: SCHEDULED MEDICATIONS: artificial tears ophthalmic ointment, Each Eye, q8h atorvastatin (Lipitor) tablet 40 mg, Oral, AT BEDTIME buPROPion XL 24hr (Wellbutrin-XL) tablet 150 mg, Oral, QDAY cefepime (Maxipime) 2,000 mg in 0.9% NaCl IV 50 mL IVPB, Intravenous, q8h chlorhexidine (Peridex) 0.12 % oral solution 15 mL, Mouth/Throat, BID ferrous sulfate tablet 325 mg, Oral, QDAY AFTER LUNCH gabapentin (Neurontin) capsule 300 mg, Oral, TID heparin injection 7,500 Units, Subcutaneous, q8h insulin aspart (NovoLOG) pen 0-4 Units, Subcutaneous, AT BEDTIME insulin aspart (NovoLOG) pen 0-6 Units, Subcutaneous, TID WC insulin aspart (NovoLOG) pen 15 Units, Subcutaneous, TID WC insulin glargine (Lantus) pen 24 Units, Subcutaneous, AT BEDTIME metroNIDAZOLE (Flagyl) tablet 500 mg, Oral, q8h pantoprazole EC (Protonix) tablet 40 mg, Oral, QDAY polyethylene glycol 3350 (Miralax) packet 17 g, Oral, QDAY sodium zirconium cyclosilicate (Lokelma) packet 10 g, Oral, QDAY at 1300 tamsulosin (Flomax) capsule 0.4 mg, Oral, QDAY CONTINUOUS MEDICATIONS: 0.9% NaCl flush bag, Intravenous, CONTINUOUS PRN PRN MEDICATIONS: Or Or 0.9% NaCl flush bag, Intravenous, CONTINUOUS PRN acetaminophen (Tylenol) tablet 650 mg, Oral, q6h PRN benzonatate (Tessalon) capsule 100 mg, Oral, TID PRN cyclobenzaprine (Flexeril) tablet 5 mg, Oral, TID PRN dextrose 10 % IV bolus, Intravenous, PRN dextrose 10 % IV bolus, Intravenous, PRN glucagon (Glucagen) injection 1 mg, Subcutaneous, PRN glucose (Diabetic Use) oral gel, Oral, PRN HYDROcodone-acetaminophen (Opal) 5-325 MG tablet 1 tablet, Oral, q4h PRN ondansetron (Zofran) injection 4 mg, Intravenous, q6h PRN Exam General appearance: alert, cooperative, no distress Heart: regular rhythm, normal S1 and S2, without murmurs, rubs or gallops Lungs: breath sounds normal and symmetric; no rales or wheezes Abdomen: soft without mass, non-tender, with normal bowel sounds Extremities: no clubbing, cyanosis or edema AYANNA; L foot wrapped with clean dressing Assessment and Plan Active Problems: Acute osteomyelitis (HCC) Ulcer of left foot with other severity (HCC) Sepsis (HCC) CHRISTIE (acute kidney injury) (HCC) Hyperkalemia Hyperglycemia # Sepsis 2/2 infected L diabetic foot ulcer (POA) #Acute osteomyelitis of the left calcenues -s/p Excisional Debridement of left foot wound skin on 05/15 and 2nd debridement of left foot wound with application of skin graft substitute on 05/20/24 --MONO WNL -1 st Intra op Culture yielded multiorganism: morgnella morhanni, prevotella, parvimonas,GBS, proteus. On cefepime, flagyl, ID following. -FU intra -op cultures from second procedure -Leave graft intact until podiatry evaluation on 05/23 # CHRISTIE on CKD 2 #Mild hyperkalemia:: resolved -likely multifactorial from sepsis VS infection related GN Vs prerenal -Renal USS showed no evidence of hydronephrosis or medical renal disease, Fena < 1% -nephrology following. Off IVF. Encouraged oral intake -hold home ARB, continue Flomax -Lokelma 10 qday, low K diet # Anemia of chronic dx, POA -Hb stable, monitor h/h & transfuse PRBC if < 7 # DM, POA =Continue lantus 24U, novolog 15 u, Continue SSI -A1c 6.6% # GERD, POA == Continue PPI # Depression, POA == Continue Wellbutrin # BPH, POA == Continue Flomax Obesity -Optical Goods Worker following WEST -CPAP at night DVT prophylaxis :Heparin sq Dispo: [place]. VS SN[facility] Manpreet Stuart M.D [facility]. Internal Medicine MENT SETTER HELPER * Deanna Carmona RN - 05/22/2024 12:54 AM CST Problem: Fall Risk Goal: Fall risk and fall related injury risk are minimized (interventions related to the fall risk can be found in the flowsheet documentation) Outcome: Progressing Problem: Pain/Discomfort Goal: Patient exhibits reduced pain/discomfort as evidenced by pain scores Outcome: Progressing Goal: Patient uses pharmacological and non-pharmacological pain management strategies. Outcome: Progressing Goal: Patient verbalizes acceptable level of pain relief and ability to engage in desired activity. Outcome: Progressing Problem: Skin/Tissue Integrity - Adult Goal: Skin integrity remains intact Description: INTERVENTIONS: Outcome: Progressing Goal: Incisions, wounds, or drain sites healing without S/S of infection Description: INFECTIONS: Outcome: Progressing Goal: Oral mucous membranes remain intact Description: INTERVENTIONS: Outcome: Progressing MENT SETTER HELPER * Bravo Alvares DPM - 05/21/2024 12:52 PM CST Admit Date: 05/13/2024 4:58 PM Hospital Day: 8 Name: Rene Hyatt Date: 05/19/2024 Medical Doctor: Nguyễn Bingham MD CC: Patient is seen at bedside for follow up for infection, and open ulceration left foot. HPI: Patient is S/P Surgical debridement of left foot wound with biopsy. Patient underwent surgical debridement on 05/15/24. Patient denies n/v/f/c, sob this am. The wound has been treated with Cefepime, and metronidazole, 05/21/24: seen at bedside today, NAEO since surgery General: Alert and oriented x 3 Family History: No family history on file. Data Vitals: 05/20/24 2003 05/21/24 0040 05/21/24 0407 05/21/24 0911 BP: 116/78 128/67 104/65 136/79 Pulse: 95 97 96 99 Resp: 18 18 18 19 Temp: 99.1 ??F (37.3 ??C) 98.4 ??F (36.9 ??C) 98.5 ??F (36.9 ??C) 98.7 ??F (37.1 ??C) SpO2: 95% 100% 97% 93% Weight: Height: Temp (30hrs) Max:99.1 ??F (37.3 ??C) Filed Wts: 05/13/24 2213 Weight: (!) 183.9 kg (405 lb 6.4 oz) MEDICATIONS FOR CURRENT ENCOUNTER: SCHEDULED MEDICATIONS: artificial tears ophthalmic ointment, Each Eye, q8h atorvastatin (Lipitor) tablet 40 mg, Oral, AT BEDTIME buPROPion XL 24hr (Wellbutrin-XL) tablet 150 mg, Oral, QDAY cefepime (Maxipime) 2,000 mg in 0.9% NaCl IV 50 mL IVPB, Intravenous, q8h chlorhexidine (Peridex) 0.12 % oral solution 15 mL, Mouth/Throat, BID ferrous sulfate tablet 325 mg, Oral, QDAY AFTER LUNCH gabapentin (Neurontin) capsule 300 mg, Oral, TID heparin injection 7,500 Units, Subcutaneous, q8h insulin aspart (NovoLOG) pen 0-4 Units, Subcutaneous, AT BEDTIME insulin aspart (NovoLOG) pen 0-6 Units, Subcutaneous, TID WC insulin aspart (NovoLOG) pen 15 Units, Subcutaneous, TID WC insulin glargine (Lantus) pen 24 Units, Subcutaneous, AT BEDTIME metroNIDAZOLE (Flagyl) tablet 500 mg, Oral, q8h pantoprazole EC (Protonix) tablet 40 mg, Oral, QDAY polyethylene glycol 3350 (Miralax) packet 17 g, Oral, QDAY sodium zirconium cyclosilicate (Lokelma) packet 10 g, Oral, QDAY at 1300 tamsulosin (Flomax) capsule 0.4 mg, Oral, QDAY CONTINUOUS MEDICATIONS: 0.9% NaCl flush bag, Intravenous, CONTINUOUS PRN PRN MEDICATIONS: Or Or 0.9% NaCl flush bag, Intravenous, CONTINUOUS PRN acetaminophen (Tylenol) tablet 650 mg, Oral, q6h PRN benzonatate (Tessalon) capsule 100 mg, Oral, TID PRN cyclobenzaprine (Flexeril) tablet 5 mg, Oral, TID PRN dextrose 10 % IV bolus, Intravenous, PRN dextrose 10 % IV bolus, Intravenous, PRN diphenhydrAMINE (Benadryl) injection 25 mg, Intravenous, Once PRN fentaNYL (PF) (Sublimaze) injection 25 mcg, Intravenous, q10 min PRN fentaNYL (PF) (Sublimaze) injection 50 mcg, Intravenous, q10 min PRN glucagon (Glucagen) injection 1 mg, Subcutaneous, PRN glucose (Diabetic Use) oral gel, Oral, PRN HYDROcodone-acetaminophen (Opal) 5-325 MG tablet 1 tablet, Oral, q4h PRN HYDROmorphone (Dilaudid) injection 0.5 mg, Intravenous, q10 min PRN ondansetron (Zofran) injection 4 mg, Intravenous, Once PRN ondansetron (Zofran) injection 4 mg, Intravenous, q6h PRN oxyCODONE (immediate release) (Roxicodone) tablet 5 mg, Oral, Once PRN prochlorperazine (Compazine) injection 10 mg, Intravenous, Once PRN Recent Labs Component Name 05/18/24 0338 05/17/24 0946 05/16/24 0309 WBC 14.5* 15.5* 21.7* HGB 7.7* 7.1* 7.3* HCT 24.7* 23.2* 23.6* PLTCOUNT 330 284 300 Recent Labs Component Name 05/21/24 0303 05/13/24 1830 09/17/23 1247 SODIUM 138 - - POTASSIUM 5.2* - 3.8 CHLORIDE 110* - - CO2 24 - 26 BUN 29* - 18 CREATININE 1.48* - 0.75 GLUCOSE 179* - 119* CALCIUM 8.8 - 9.6 ALBUMIN 1.7* - - ALKPHOS - - 84 ALT - - 11 AST - - 12 EGFR 59* - >90 - = values in this interval not displayed. No results for input(s): INR in the last 04760 hours. No results for input(s): PT in the last 37566 hours. No results for input(s): PTT in the last 48155 hours. GENERAL: Conversant; NAD PSYCHE: Alert and oriented to person, place, and time. Appropriate affect noted. EYES: PERRLA; No scleral icterus. Conjuctiva moist NECK: Supple; no masses. Trachea midline. No thyromegaly Patient Vitals for the past 24 hrs: Temp Pulse Resp BP SpO2 05/21/24 0911 98.7 ??F (37.1 ??C) 99 19 136/79 93 % 05/21/24 0407 98.5 ??F (36.9 ??C) 96 18 104/65 97 % 05/21/24 0040 98.4 ??F (36.9 ??C) 97 18 128/67 100 % 05/20/242002 99.1 ??F (37.3 ??C) 95 18 116/78 95 % 05/20/24 1802 97.6 ??F (36.4 ??C) 90 19 112/72 92 % 05/20/24 1642 -- -- -- -- 96 % 05/20/24 1641 -- 84 16 169/97 96 % 05/20/24 1640 -- -- -- -- 97 % 05/20/24 1637 -- -- -- -- 95 % 05/20/24 1636 -- 85 14 174/86 96 % 05/20/24 1635 -- -- -- -- 95 % 05/20/24 1626 -- 84 15 162/89 -- 05/20/24 1621 -- 85 17 151/79 -- 05/20/24 1607 -- -- -- -- 92 % 05/20/24 1606 -- 91 14 145/86 90 % 05/20/24 1605 -- -- -- -- 92 % 05/20/24 1603 -- -- -- -- 93 % 05/20/24 1601 -- 91 14 123/72 92 % 05/20/24 1600 97.3 ??F (36.3 ??C) -- -- 118/73 93 % Dressings are c/d/I, no strikethrough Previous exam: Lower extremity VASCULAR: Dorsalis pedis pulses: Right 0/4 Left 0/4 Posterior tibial pulses: Right 0/4 Left 0/4 Patient shows: decreased hair growth thin atrophic skin No edema noted bilaterally LYMPHATICS: Lymphedema is noted bilaterally. No painful popliteal or inguinal nodes DERMATOLOGIC: Skin color and texture are: Ulceration located: Left foot There is a large open ulceration noted to the plantar aspect of left foot with granular wound base and < 40% yellowish fibrin, necrosis or slough noted to wound base. There is exposed tendon and bone noted. There continues to be franchesca wound erythema noted extending proximally to left calf. There is moderate serous drainage noted. There is no malodor noted. Size 11.0cmx 15.0cm x 2.5cm NEUROLOGIC: Protective Sensation is absent with 5.07 SWMF bilaterally at toes and MPJ levels Patient can not distinguish between sharp and dull. Proprioception is intact. MUSCULO: Manual Muscle strength is diminsihed in the anterior and posterior muscle groups bilateral feet andlower limbs. Blood Culture: Wound Culture: Arterial Doppler: Order Xray: COMPARISON: 03/06/2023 FINDINGS: No acute fracture or dislocation identified. Accessory ossicle at the base of the 5th metatarsal. No osseous cortical erosions. No radiopaque foreign body. Soft tissue gas within the hindfoot. Diffuse soft tissue swelling of the foot. IMPRESSION: Diffuse soft tissue swelling of the foot. Soft tissue gas within the hindfoot. No acute osseous abnormality. MRI: Ordered Culture Bone calcaneus Left 05/15/24 Collected 05/15/2024 16:33 Status: Preliminary result Visible to patient: No (not released) Dx: Left foot infection Specimen Information: Foot; Microbiology 0 Result Notes Culture Heavy Morganella morganii Critical Heavy Streptococcus agalactiae (Group B) Critical Rare Proteus vulgaris Critical Susceptibility testing of penicillin, other beta-lactam antibiotics, and vancomycin is not necessary for beta-hemolytic streptococci groups A,B,C and G because resistant strains have not been recognized. Surgical Description: Calcaneus Bone Left Foot Culture wound Left foot 05/15/24 Collected 05/15/2024 16:34 Status: Preliminary result Visible to patient: No (not released) Dx: Left foot infection Specimen Information: Foot; Microbiology 0 Result Notes Culture Rare Streptococcus agalactiae (Group B) Critical Susceptibility testing of penicillin, other beta-lactam antibiotics, and vancomycin is not necessary for beta-hemolytic streptococci groups A,B,C and G because resistant strains have not been recognized. Surgical Description: Left Foot Pathology: Biopsy taken 05/15/24. Awaiting results. Patient Glucose Bedside (mg/dL) in the past 24 hrs: 05/18/24 194, Glucose Bedside (mg/dL):249 mg/dL 05/19/24 0728, Glucose Bedside (mg/dL):172 mg/dL 05/19/24 1209, Glucose Bedside (mg/dL):177 mg/dL 05/19/24 1718, Glucose Bedside (mg/dL):173 mg/dL ASSESSEMENT: 1. Surgical Debridement of left foot wound including bone biopsy 2. Infection left foot 3. Osteomyelitis left foot 4. Diabetic neuropathic ulceration - 5. PVD 6. Neuropathy 7. Diabetes Infection left foot/ Osteomyelitis left foot - Cefepime (Maxipime) 2,000mg every 8 hours - Metronidazole 500mg every 8 hours - Vancomycin 1500mg every 12 hours S/P Surgical Debridement of left foot wound including bone biopsy Diabetic neuropathic ulceration left foot - Dressing instructions: Graft intact, may leave intact 3d until Dr. Quinn re evaluation Thursday - Weight bearing: Ambulate non weight bearing to left foot with walker. Neuropathy/ Type II Diabetes - Monitor blood glucose - Internal medicine following PLAN: S/p rocedure: Debridement of left foot wound with possible application of skin graft substitute 1 Day Post-Op Patient is at high risk for limb loss. MENT SETTER HELPER * Mignon Alvarez LPN - 05/21/2024 9:16 AM CST Problem: Fall Risk Goal: Fall risk and fall related injury risk are minimized (interventions related to the fall risk can be found in the flowsheet documentation) Outcome: Progressing Problem: Pain/Discomfort Goal: Patient exhibits reduced pain/discomfort as evidenced by pain scores Outcome: Progressing Problem: Nutrient: Increased nutrient needs (specify) Goal: Total intake will meet estimated nutrient needs Outcome: Progressing Problem: Skin/Tissue Integrity - Adult Goal: Skin integrity remains intact Description: INTERVENTIONS: Outcome: Progressing MENT SETTER HELPER * Katerina Weaver DO - 05/21/2024 9:03 AM CST Renal Follow-Up Note Name: Rene Hyatt Age: [age] year old Patient's Attending Physician: Manpreet Stuart MD Admit Date: 05/13/2024 4:58 PM Hospital Day: 8 Portions of this note were carried over from previous note, EHR template. I reviewed and updated asnecessary. Reason For Visit: L Foot OM New Symptoms He has no new complaints today. His K was elevated and it was explained to him that he will need toadhere to a low K diet. Review of Systems: All other systems reviewed and are negative Physical Examination: Vitals: 05/20/24 1802 05/20/24 2003 05/21/24 0040 05/21/24 0407 BP: 112/72 116/78 128/67 104/65 Pulse: 90 95 97 96 Resp: 19 18 18 18 Temp: 97.6 ??F (36.4 ??C) 99.1 ??F (37.3 ??C) 98.4 ??F (36.9 ??C) 98.5 ??F (36.9 ??C) SpO2: 92% 95% 100% 97% Weight: Height: General appearance: alert, cooperative, obese Head: normocephalic, without trauma Resp : No distress, no creps Heart: regular rhythm, normal S1 and S2, Abdomen: soft without mass, non-tender, Extremities:L foot in bandages, bilateral LE edema Neurologic: mental status normal; alert and oriented X 3; Skin:No rashes noted Laboratory Data I have personally reviewed the following labs: Recent Labs Component Name 05/18/24 0338 05/17/24 0946 05/16/24 030 WBC 14.5* 15.5* 21.7* HGB 7.7* 7.1* 7.3* HCT 24.7* 23.2* 23.6* PLTCOUNT 330 284 300 Recent Labs Component Name 05/21/24 0303 05/20/24 0309 05/19/24 0216 SODIUM 138 136 136 POTASSIUM 5.2* 4.8 5.2* CHLORIDE 110* 109* 110* CO2 24 23 20* BUN 29* 33* 36* CREATININE 1.48* 1.44* 1.58* GLUCOSE 179* 167* 190* CALCIUM 8.8 8.6 8.6 No results for input(s): MAGMGDL in the last 43166 hours. Recent Labs Component Name 05/21/24 0303 05/20/24 0309 05/19/24 0216 PHOS 4.2 3.3 3.4 Glucose Bedside (mg/dL): 182 mg/dL (05/21/24 0747) Intake/Output Summary (Last 24 hours) at 05/21/2024 0903 Last data filed at 05/21/2024 0408 Gross per 24 hour Intake 1040 ml Output 1600 ml Net -560 ml Medications-I have personally reviewed the medications listed below: artificial tears ophthalmic ointment, Each Eye, q8h atorvastatin (Lipitor) tablet 40 mg, Oral, AT BEDTIME buPROPion XL 24hr (Wellbutrin-XL) tablet 150 mg, Oral, QDAY cefepime (Maxipime) 2,000 mg in 0.9% NaCl IV 50 mL IVPB, Intravenous, q8h chlorhexidine (Peridex) 0.12 % oral solution 15 mL, Mouth/Throat, BID ferrous sulfate tablet 325 mg, Oral, QDAY AFTER LUNCH gabapentin (Neurontin) capsule 300 mg, Oral, TID heparin injection 7,500 Units, Subcutaneous, q8h insulin aspart (NovoLOG) pen 0-4 Units, Subcutaneous, AT BEDTIME insulin aspart (NovoLOG) pen 0-6 Units, Subcutaneous, TID WC insulin aspart (NovoLOG) pen 15 Units, Subcutaneous, TID WC insulin glargine (Lantus) pen 24 Units, Subcutaneous, AT BEDTIME metroNIDAZOLE (Flagyl) tablet 500 mg, Oral, q8h pantoprazole EC (Protonix) tablet 40 mg, Oral, QDAY polyethylene glycol 3350 (Miralax) packet 17 g, Oral, QDAY sodium zirconium cyclosilicate (Lokelma) packet 10 g, Oral, QDAY at 1300 tamsulosin (Flomax) capsule 0.4 mg, Oral, QDAY 0.9% NaCl flush bag, Intravenous, CONTINUOUS PRN Or Or 0.9% NaCl flush bag, Intravenous, CONTINUOUS PRN acetaminophen (Tylenol) tablet 650 mg, Oral, q6h PRN benzonatate (Tessalon) capsule 100 mg, Oral, TID PRN cyclobenzaprine (Flexeril) tablet 5 mg, Oral, TID PRN dextrose 10 % IV bolus, Intravenous, PRN dextrose 10 % IV bolus, Intravenous, PRN diphenhydrAMINE (Benadryl) injection 25 mg, Intravenous, Once PRN fentaNYL (PF) (Sublimaze) injection 25 mcg, Intravenous, q10 min PRN fentaNYL (PF) (Sublimaze) injection 50 mcg, Intravenous, q10 min PRN glucagon (Glucagen) injection 1 mg, Subcutaneous, PRN glucose (Diabetic Use) oral gel, Oral, PRN HYDROcodone-acetaminophen (Opal) 5-325 MG tablet 1 tablet, Oral, q4h PRN HYDROmorphone (Dilaudid) injection 0.5 mg, Intravenous, q10 min PRN ondansetron (Zofran) injection 4 mg, Intravenous, Once PRN ondansetron (Zofran) injection 4 mg, Intravenous, q6h PRN oxyCODONE (immediate release) (Roxicodone) tablet 5 mg, Oral, Once PRN prochlorperazine (Compazine) injection 10 mg, Intravenous, Once PRN Assessment and Plan: #CHRISTIE on CKD 2 -Most likely due to ATN from sepsis of L foot with volume depletion in setting of RAAS blockage -Creatinine improved with IVF -Now able to maintain stable creatinine with PO intake ---No additional IVF administration ---Encourage PO intake and fluid intake ---Avoid nephrotoxins and hypotension ---Continue flomax #Hyperkalemia -Most likely due to renal dysfunction with component of dietary indiscretions -Explained importance of adhering to low K diet ---Changed diet order to Low K diet --Continue loklema 10g daily #Hypertension -Blood pressures better controlled ---Continue current regimen Discussed with Primary Team Katerina Weaver DO Office:[phone] Exchange: MENT SETTER HELPER * Manpreet Stuart MD - 05/21/2024 8:35 AM CST Progress Note Admit Date: 05/13/2024 4:58 PM Hospital Day: 8 Clinical Course 43 y/o WM with h/o Morbid obesity, DM, Depression, GERD, BPH who was transferred from OSH 2/2 infected L foot ulcer and being managed for focal acute OM of the left foot s/p I&D on 05/15 by Podiatry and subsequently underwent a repeat debridement on 05/20/24. Intra Op cultures grew multiorganism. ID following and patient is on antibiotics. Nephrology following for CHRISTIE. New Symptoms Patient has no new symptoms HDS. Data Vitals: 05/20/24 1802 05/20/24200205/21/24 0040 05/21/24 0407 BP: 112/72 116/78 128/67 104/65 Pulse: 90 95 97 96 Resp: 19 18 18 18 Temp: 97.6 ??F (36.4 ??C) 99.1 ??F (37.3 ??C) 98.4 ??F (36.9 ??C) 98.5 ??F (36.9 ??C) SpO2: 92% 95% 100% 97% Weight: Height: Intake/Output Summary (Last 24 hours) at 05/21/2024 0835 Last data filed at 05/21/2024 0408 Gross per 24 hour Intake 1040 ml Output 1600 ml Net -560 ml My review of labs, imaging, notes and other tests shows no new significant findings. Recent Labs Component Name 05/18/24 0338 05/17/24 0946 05/16/24 0309 WBC 14.5* 15.5* 21.7* HGB 7.7* 7.1* 7.3* HCT 24.7* 23.2* 23.6* PLTCOUNT 330 284 300 Recent Labs Component Name 05/21/24 0303 05/20/24 0309 05/19/24 0216 SODIUM 138 136 136 POTASSIUM 5.2* 4.8 5.2* CHLORIDE 110* 109* 110* CO2 24 23 20* BUN 29* 33* 36* CREATININE 1.48* 1.44* 1.58* GLUCOSE 179* 167* 190* CALCIUM 8.8 8.6 8.6 MEDICATIONS FOR CURRENT ENCOUNTER: SCHEDULED MEDICATIONS: artificial tears ophthalmic ointment, Each Eye, q8h atorvastatin (Lipitor) tablet 40 mg, Oral, AT BEDTIME buPROPion XL 24hr (Wellbutrin-XL) tablet 150 mg, Oral, QDAY cefepime (Maxipime) 2,000 mg in 0.9% NaCl IV 50 mL IVPB, Intravenous, q8h chlorhexidine (Peridex) 0.12 % oral solution 15 mL, Mouth/Throat, BID enoxaparin (Lovenox) injection 40 mg, Subcutaneous, BID ferrous sulfate tablet 325 mg, Oral, QDAY AFTER LUNCH gabapentin (Neurontin) capsule 300 mg, Oral, TID insulin aspart (NovoLOG) pen 0-4 Units, Subcutaneous, AT BEDTIME insulin aspart (NovoLOG) pen 0-6 Units, Subcutaneous, TID WC insulin aspart (NovoLOG) pen 15 Units, Subcutaneous, TID WC insulin glargine (Lantus) pen 24 Units, Subcutaneous, AT BEDTIME metroNIDAZOLE (Flagyl) tablet 500 mg, Oral, q8h pantoprazole EC (Protonix) tablet 40 mg, Oral, QDAY polyethylene glycol 3350 (Miralax) packet 17 g, Oral, QDAY sodium zirconium cyclosilicate (Lokelma) packet 10 g, Oral, QDAY at 1300 tamsulosin (Flomax) capsule 0.4 mg, Oral, QDAY CONTINUOUS MEDICATIONS: 0.9% NaCl flush bag, Intravenous, CONTINUOUS PRN PRN MEDICATIONS: Or Or 0.9% NaCl flush bag, Intravenous, CONTINUOUS PRN acetaminophen (Tylenol) tablet 650 mg, Oral, q6h PRN benzonatate (Tessalon) capsule 100 mg, Oral, TID PRN cyclobenzaprine (Flexeril) tablet 5 mg, Oral, TID PRN dextrose 10 % IV bolus, Intravenous, PRN dextrose 10 % IV bolus, Intravenous, PRN diphenhydrAMINE (Benadryl) injection 25 mg, Intravenous, Once PRN fentaNYL (PF) (Sublimaze) injection 25 mcg, Intravenous, q10 min PRN fentaNYL (PF) (Sublimaze) injection 50 mcg, Intravenous, q10 min PRN glucagon (Glucagen) injection 1 mg, Subcutaneous, PRN glucose (Diabetic Use) oral gel, Oral, PRN HYDROcodone-acetaminophen (Opal) 5-325 MG tablet 1 tablet, Oral, q4h PRN HYDROmorphone (Dilaudid) injection 0.5 mg, Intravenous, q10 min PRN ondansetron (Zofran) injection 4 mg, Intravenous, Once PRN ondansetron (Zofran) injection 4 mg, Intravenous, q6h PRN oxyCODONE (immediate release) (Roxicodone) tablet 5 mg, Oral, Once PRN prochlorperazine (Compazine) injection 10 mg, Intravenous, Once PRN Exam General appearance: alert, cooperative, no distress Heart: regular rhythm, normal S1 and S2, without murmurs, rubs or gallops Lungs: breath sounds normal and symmetric; no rales or wheezes Abdomen: soft without mass, non-tender, with normal bowel sounds Extremities: no clubbing, cyanosis or edema AYANNA; L foot wrapped with clean dressing Assessment and Plan Active Problems: Acute osteomyelitis (HCC) Ulcer of left foot with other severity (HCC) Sepsis (HCC) CHRISTIE (acute kidney injury) (HCC) Hyperkalemia Hyperglycemia # Sepsis 2/2 infected L diabetic foot ulcer (POA) #Acute osteomyelitis of the left calcenues -s/p Excisional Debridement of left foot wound skin on 05/15 and 2nd debridement of left foot wound with application of skin graft substitute on 05/20/24 --MONO WNL -1 st Intra op Culture yielded multiorganism: morgnella morhanni, prevotella, parvimonas,GBS, proteus. On cefepime, flagyl, ID following. -FU intra -op cultures from second procedure # CHRISTIE #Mild hyperkalemia -likely multifactorial from sepsis VS infection related GN Vs prerenal -Renal USS showed no evidence of hydronephrosis or medical renal disease, Fena < 1% -nephrology following. Off IVF. Encouraged oral intake -hold home ARB, continue Flomax -Lokelma 10 qday, low K diet # Anemia of chronic dx, POA -Hb stable, monitor h/h & transfuse PRBC if < 7 # DM, POA =Continue lantus 24U, novolog 15 u, Continue SSI -A1c 6.6% # GERD, POA == Continue PPI # Depression, POA == Continue Wellbutrin # BPH, POA == Continue Flomax Obesity -Optical Goods Worker following WEST -CPAP at night DVT prophylaxis :Heparin sq Dispo: [place]. VS SNF Manpreet Stuart M.D [facility]. Internal Medicine MENT SETTER HELPER * James Link RCP - 05/21/2024 5:05 AM CST PT refused CPAP tonight. Told RT he would call if changes his mind. States he feels it is too much pressure MENT SETTER HELPER * Dexter Cotto OT - 05/20/2024 2:34 PM CST Attempted to see pt for OT follow-up; currently [place] at DEBRIDEMENT FOOT WOUND WITH POSSIBLE GRAFT-LEFT (Foot) . Will attempt to see pt at a later time/date. Thank you, YURIDIA RenteriaR/L [phone] 05/20/2024 MENT SETTER HELPER * Mignon Alvarez LPN - 05/20/2024 2:07 PM CST Problem: Fall Risk Goal: Fall risk and fall related injury risk are minimized (interventions related to the fall risk can be found in the flowsheet documentation) Outcome: Progressing Problem: Pain/Discomfort Goal: Patient exhibits reduced pain/discomfort as evidenced by pain scores Outcome: Progressing Problem: Nutrient: Increased nutrient needs (specify) Goal: Total intake will meet estimated nutrient needs Outcome: Progressing Problem: Skin/Tissue Integrity - Adult Goal: Skin integrity remains intact Description: INTERVENTIONS: Outcome: Progressing MENT SETTER HELPER * Manpreet Stuart MD - 05/20/2024 1:16 PM CST Progress Note Admit Date: 05/13/2024 4:58 PM Hospital Day: 7 Clinical Course 43 y/o WM with h/o Morbid obesity, DM, Depression, GERD, BPH who was transferred from OSH 2/2 infected L foot ulcer and being managed for focal acute OM of the left foot s/p I&D on 05/15 by Podiatry and subsequently planned for a repeat debridement 05/20/24. Intra Op cultures grew multiorganism. ID following and patient is on antibiotics. Nephrology following for CHRISTIE. New Symptoms Patient has no new symptoms HDS. Data Vitals: 05/19/24 1940 05/19/24 2340 05/20/24 0414 05/20/24 0857 BP: 141/80 162/85 136/77 156/77 Pulse: 92 92 89 90 Resp: 18 16 20 19 Temp: 98.9 ??F (37.2 ??C) 98.8 ??F (37.1 ??C) 98.5 ??F (36.9 ??C) 98.6 ??F (37 ??C) SpO2: 93% 93% 92% 94% Weight: Height: Intake/Output Summary (Last 24 hours) at 05/20/2024 1316 Last data filed at 05/20/2024 0648 Gross per 24 hour Intake 240 ml Output 3800 ml Net -3560 ml My review of labs, imaging, notes and other tests shows no new significant findings. Recent Labs Component Name 05/18/24 0338 05/17/24 0946 05/16/24 0309 WBC 14.5* 15.5* 21.7* HGB 7.7* 7.1* 7.3* HCT 24.7* 23.2* 23.6* PLTCOUNT 330 284 300 Recent Labs Component Name 05/20/24 0309 05/19/24 0216 05/18/24 0338 SODIUM 136 136 136 POTASSIUM 4.8 5.2* 4.7 CHLORIDE 109* 110* 111* CO2 23 20* 21* BUN 33* 36* 35* CREATININE 1.44* 1.58* 1.62* GLUCOSE 167* 190* 233* CALCIUM 8.6 8.6 8.1* MEDICATIONS FOR CURRENT ENCOUNTER: SCHEDULED MEDICATIONS: atorvastatin (Lipitor) tablet 40 mg, Oral, AT BEDTIME buPROPion XL 24hr (Wellbutrin-XL) tablet 150 mg, Oral, QDAY cefepime (Maxipime) 2,000 mg in 0.9% NaCl IV 50 mL IVPB, Intravenous, q8h enoxaparin (Lovenox) injection 40 mg, Subcutaneous, BID ferrous sulfate tablet 325 mg, Oral, QDAY AFTER LUNCH gabapentin (Neurontin) capsule 300 mg, Oral, TID insulin aspart (NovoLOG) pen 0-4 Units, Subcutaneous, AT BEDTIME insulin aspart (NovoLOG) pen 0-6 Units, Subcutaneous, TID WC insulin aspart (NovoLOG) pen 15 Units, Subcutaneous, TID WC insulin glargine (Lantus) pen 24 Units, Subcutaneous, AT BEDTIME metroNIDAZOLE (Flagyl) tablet 500 mg, Oral, q8h pantoprazole EC (Protonix) tablet 40 mg, Oral, QDAY polyethylene glycol 3350 (Miralax) packet 17 g, Oral, QDAY sodium zirconium cyclosilicate (Lokelma) packet 10 g, Oral, QDAY at 1300 tamsulosin (Flomax) capsule 0.4 mg, Oral, QDAY CONTINUOUS MEDICATIONS: 0.9% NaCl flush bag, Intravenous, CONTINUOUS PRN PRN MEDICATIONS: Or Or 0.9% NaCl flush bag, Intravenous, CONTINUOUS PRN acetaminophen (Tylenol) tablet 650 mg, Oral, q6h PRN benzonatate (Tessalon) capsule 100 mg, Oral, TID PRN cyclobenzaprine (Flexeril) tablet 5 mg, Oral, TID PRN dextrose 10 % IV bolus, Intravenous, PRN dextrose 10 % IV bolus, Intravenous, PRN glucagon (Glucagen) injection 1 mg, Subcutaneous, PRN glucose (Diabetic Use) oral gel, Oral, PRN HYDROcodone-acetaminophen (Opal) 5-325 MG tablet 1 tablet, Oral, q4h PRN ondansetron (Zofran) injection 4 mg, Intravenous, q6h PRN Exam General appearance: alert, cooperative, no distress Heart: regular rhythm, normal S1 and S2, without murmurs, rubs or gallops Lungs: breath sounds normal and symmetric; no rales or wheezes Abdomen: soft without mass, non-tender, with normal bowel sounds Extremities: no clubbing, cyanosis or edema AYANNA; L foot wrapped with clean dressing Assessment and Plan Active Problems: Acute osteomyelitis (HCC) Ulcer of left foot with other severity (HCC) Sepsis (HCC) CHRISTIE (acute kidney injury) (HCC) Hyperkalemia Hyperglycemia # Sepsis 2/2 infected L diabetic foot ulcer (POA) #Acute osteomyelitis of the left calcenues -s/p Excisional Debridement of left foot wound skin on 05/15 and planned for debridement of left foot wound with possible application of skin graft substitute 05/20/24 -Intra op Culture yielded multiorganism: morgnella morhanni, GBS, proteus. On cefepime, flagyl, ID following. -MONO WNL -PICC line should be ordered after last surgery per ID # CHRISTIE #Mild hyperkalemia -likely multifactorial from sepsis VS infection related GN Vs prerenal -Renal USS showed no evidence of hydronephrosis or medical renal disease, Fena < 1% -nephrology following. Off IVF. Encouraged oral intake -hold home ARB, continue Flomax -Lokelma 10 qday, low K diet # Anemia of chronic dx, POA -Hb stable, monitor h/h & transfuse PRBC if < 7 # DM, POA =Continue lantus 24U, novolog 15 u, Continue SSI -A1c 6.6% # GERD, POA == Continue PPI # Depression, POA == Continue Wellbutrin # BPH, POA == Continue Flomax Obesity -Optical Goods Worker following WEST -CPAP at night DVT prophylaxis :Lovenox on hold for procedure Dispo: [place] VS SNF Manpreet Stuart M.D [facility]. Internal Medicine MENT SETTER HELPER * Alma Rosa Barclay, PT - 05/20/2024 12:16 PM CST Attempted to see patient for physical therapy. Unable to complete visit due to patient declined. Reports he is scheduled for procedure- L LE today and does not feel up to PT at this time. PT will attempt to see patient at a later date. [facility] PT [phone] MENT SETTER HELPER * Christel Barcenas RN - 05/20/2024 9:23 AM CST Care Coordination Progress Note Expected Discharge Date: 05/25/2024 Discharge Plan: [place] vs SNF. Pending medical stability and continue working with PT/OT. Not medicallystable for DC. Barriers: plan to return to OR for surgical debridement today at 1300, final IVABT plan PICC line placement. Family Support (Name and Phone): Extended Emergency Contact Information Primary Emergency Contact: CLARA HYATT Relation: Mother Transportation at Discharge: (cab or ambulance): READMISSION RISK SCORE is 15 at 9:23 AM 05/20/2024.: Name: Christel Barcenas RN Case Manager MENT SETTER HELPER * Hattie Liao MD - 05/20/2024 9:17 AM CST Infectious Diseases Consult Note Patient's Primary Care Physician: Nguyễn Bingham MD Reason for Consultation: foot ulcer Referring Physcian: No admitting provider for patient encounter. Name: Rene Hyatt Age: [age] year old 6 Chief Complaint/History of Present Illness No new complaints Wants to hold off on narcotics No fever Objective: Review of Systems General: no fatigue/fever/chills Skin: no rashes/lesions Respiratory: no cough/sob Cardiovascular: no cp/palpitations Gastrointestinal: no nausea/diarrhea Genitourinary: no dysuria/hematuria Musculoskeletal: Left foot pain Exam Vitals: 05/19/24 1940 05/19/24 2340 05/20/24 0414 05/20/24 0857 BP: 141/80 162/85 136/77 156/77 Pulse: 92 92 89 90 Resp: 18 19 Temp: 98.9 ??F (37.2 ??C) 98.8 ??F (37.1 ??C) 98.5 ??F (36.9 ??C) 98.6 ??F (37 ??C) SpO2: 93% 93% 92% 94% Weight: Height: Temp (30hrs) Max:98.9 ??F (37.2 ??C) General appearance: Alert, no distress Lungs: clear to auscultation bilaterally Heart: regular rate and rhythm, S1, S2 normal, no murmur, Abdomen: soft, non-tender; bowel sounds normal Extremities: no edema Left foot wrapped Skin: no rash Lines: MEDICATIONS FOR CURRENT ENCOUNTER: SCHEDULED MEDICATIONS: atorvastatin (Lipitor) tablet 40 mg, Oral, AT BEDTIME buPROPion XL 24hr (Wellbutrin-XL) tablet 150 mg, Oral, QDAY cefepime (Maxipime) 2,000 mg in 0.9% NaCl IV 50 mL IVPB, Intravenous, q8h enoxaparin (Lovenox) injection 40 mg, Subcutaneous, BID ferrous sulfate tablet 325 mg, Oral, QDAY AFTER LUNCH gabapentin (Neurontin) capsule 300 mg, Oral, TID insulin aspart (NovoLOG) pen 0-4 Units, Subcutaneous, AT BEDTIME insulin aspart (NovoLOG) pen 0-6 Units, Subcutaneous, TID WC insulin aspart (NovoLOG) pen 15 Units, Subcutaneous, TID WC insulin glargine (Lantus) pen 24 Units, Subcutaneous, AT BEDTIME metroNIDAZOLE (Flagyl) tablet 500 mg, Oral, q8h pantoprazole EC (Protonix) tablet 40 mg, Oral, QDAY polyethylene glycol 3350 (Miralax) packet 17 g, Oral, QDAY sodium zirconium cyclosilicate (Lokelma) packet 10 g, Oral, QDAY at 1300 tamsulosin (Flomax) capsule 0.4 mg, Oral, QDAY Data Recent Labs Component Name 05/18/24 0338 05/17/24 0946 05/16/24 0309 WBC 14.5* 15.5* 21.7* HGB 7.7* 7.1* 7.3* HCT 24.7* 23.2* 23.6* PLTCOUNT 330 284 300 Recent Labs Component Name 05/20/24 0309 05/19/24 0216 05/18/24 0338 SODIUM 136 136 136 POTASSIUM 4.8 5.2* 4.7 CHLORIDE 109* 110* 111* CO2 23 20* 21* BUN 33* 36* 35* CREATININE 1.44* 1.58* 1.62* GLUCOSE 167* 190* 233* CALCIUM 8.6 8.6 8.1* Recent Labs Component Name 05/20/24 0309 05/19/24 0216 05/18/24 0338 05/14/24 0403 09/17/23 1247 ALBUMIN 1.7* 1.6* 1.5* - - ALKPHOS - - - - 84 ALT - - - - 11 AST - - - - 12 - = values in this interval not displayed. No results for input(s): CDIFFTOXINAB in the last 76771 hours. No results for input(s): SEDRATE in the last 76185 hours. No results for input(s): CRP in the last 78825 hours. Recent Labs Component Name 05/14/24 0403 CK 136 . Recent Labs Component Name 05/16/24 0904 05/14/24 1706 VANCOPEAK 40.3* 25.0 Recent Labs Component Name 05/15/24 0013 09/17/23 1247 HGBA1C 6.6* 6.2* Recent Labs Component Name 05/16/24 1257 COLORUA Yellow CLARITYUA Turbid* SPECGRAVUA 1.016 PHUA 5.5 PROTEINUA 1+* BLOODUA 2+* LEUKOCYTEUA 75 MIKKI/uL* NITRITEUA Negative GLUCOSEUA Normal KETONEUA Trace* BILIRUBINUA Negative UROBILINUA Normal WBCUA 6-10* RBCUA None Seen BACTUA None Seen Microbiology Radiology Assessment --Ulcer of left foot Om 05/14 cx swab - morganella Xray- diffuse gas I hindfoot Mri -mild osteo of the lateral calcaneal tubercle Cultures with Morganella and group B strep Debridement to bone level 05/15 Path with acute osteomyelitis Cx GBS, Morganella, proteus, parvimonas and prevotella -- christie --Dm--uncontrolled --htn --anemia --anxiety, depression -- bph -- mo --non compliance Plan - on cefepime, po flagyl, - podiatry on case, - monitoring labs - f.u bcx , wound cx - local care of wounds Will need PICC line and 6 weeks of antibiotics Line to be placed after last surgery Messaged with Please be advised that part of this text was done using voice recognition software. Errors may havebeen missed upon review. Hattie Liao MD MENT SETTER HELPER * Sohan Ramirez, [facility] - 05/20/2024 9:11 AM CST New Facility Referral Follow Up Social Work Daily Progress Thursday Level of Care (SNF/Medicaid NH/Rehab/Fire Extinguisher Sprinkler Inspector Care/LTACH): [place] vs SNF DC Barrier: Plan to return to operating room for surgical debridement. Needs Picc line [place] auth pending Special Needs: Cannot do Q8 MUST be Q12 for IV ABX at a SNF cefepime (Maxipime) 2,000 mg in 0.9% NaCl IV 50 mL IVPB Q8 (NEEDS TO BE CHANGED TO Q12) Service Provider Request Status Selected Services Address Phone Fax Patient Preferred [facility] Accepted -- [address] [place] [address] [phone] -- [facility] Accepted -- [address], [facility] [address] -- Payer/Plan Subscriber Name Rel Member # Group # [employer] * RENE HYATT Self [id number] [address] Monitoring of facility responses: 05/18/2024 11:21 AM SW spoke with Admission Jolly ([phone]); beds open only at [facility]. They can only do Q12 for IV ABX; Extended Emergency Contact Information Primary Emergency Contact: CLARA HYATT Relation: Mother Comments/changes: Social Work Name: Sohan Ramirez LEATHER PIECE INSPECTOR, [employer] [facility] Phone: Desk: [phone]; Ascom: [phone] MENT SETTER HELPER * Anca Vines RN - 05/20/2024 8:59 AM CST [facility] [place] rehab update: AR is awaiting ins determination. AR will update once notified. Thank you for referral, Anca Vines RN, BSN, [place] Clinical Liaison [facility] cell: [phone] MENT SETTER HELPER * Kang Sanders RN - 05/20/2024 2:46 AM CST Problem: Fall Risk Goal: Fall risk and fall related injury risk are minimized (interventions related to the fall risk can be found in the flowsheet documentation) Outcome: Progressing Problem: Pain/Discomfort Goal: Patient exhibits reduced pain/discomfort as evidenced by pain scores Outcome: Progressing Goal: Patient uses pharmacological and non-pharmacological pain management strategies. Outcome: Progressing Problem: Nutrient: Increased nutrient needs (specify) Goal: Total intake will meet estimated nutrient needs Outcome: Progressing Problem: Hematologic - Adult Goal: Maintains hematologic stability Description: INTERVENTIONS: Outcome: Progressing Problem: Skin/Tissue Integrity - Adult Goal: Skin integrity remains intact Description: INTERVENTIONS: Outcome: Progressing Goal: Incisions, wounds, or drain sites healing without S/S of infection Description: INFECTIONS: Outcome: Progressing Goal: Oral mucous membranes remain intact Description: INTERVENTIONS: Outcome: Progressing MENT SETTER HELPER * Abby Quinn DPM - 05/19/2024 6:04 PM CST Admit Date: 05/13/2024 4:58 PM Hospital Day: 6 Name: Rene Hyatt Date: 05/19/2024 Medical Doctor: Nguyễn Bingham MD CC: Patient is seen at bedside for follow up for infection, and open ulceration left foot. HPI: Patient is S/P Surgical debridement of left foot wound with biopsy. Patient underwent surgical debridement on 05/15/24. Patient denies n/v/f/c, sob this am. The wound has been treated with Cefepime, and metronidazole, General: Alert and oriented x 3 Family History: No family history on file. Data Vitals: 05/19/24 0403 05/19/24 0728 05/19/24 1121 05/19/24 1642 BP: 147/81 133/73 141/80 118/79 Pulse: 88 86 86 85 Resp: 16 18 17 17 Temp: 98.9 ??F (37.2 ??C) 98.5 ??F (36.9 ??C) 98.7 ??F (37.1 ??C) 98.7 ??F (37.1 ??C) SpO2: 95% 96% 95% 95% Weight: Height: Temp (30hrs) Max:99.2 ??F (37.3 ??C) Filed Wts: 05/13/24 2213 Weight: (!) 183.9 kg (405 lb 6.4 oz) MEDICATIONS FOR CURRENT ENCOUNTER: SCHEDULED MEDICATIONS: atorvastatin (Lipitor) tablet 40 mg, Oral, AT BEDTIME buPROPion XL 24hr (Wellbutrin-XL) tablet 150 mg, Oral, QDAY cefepime (Maxipime) 2,000 mg in 0.9% NaCl IV 50 mL IVPB, Intravenous, q8h enoxaparin (Lovenox) injection 40 mg, Subcutaneous, BID ferrous sulfate tablet 325 mg, Oral, QDAY AFTER LUNCH gabapentin (Neurontin) capsule 300 mg, Oral, TID insulin aspart (NovoLOG) pen 0-4 Units, Subcutaneous, AT BEDTIME insulin aspart (NovoLOG) pen 0-6 Units, Subcutaneous, TID WC insulin aspart (NovoLOG) pen 15 Units, Subcutaneous, TID WC insulin glargine (Lantus) pen 24 Units, Subcutaneous, AT BEDTIME metroNIDAZOLE (Flagyl) tablet 500 mg, Oral, q8h pantoprazole EC (Protonix) tablet 40 mg, Oral, QDAY polyethylene glycol 3350 (Miralax) packet 17 g, Oral, QDAY sodium zirconium cyclosilicate (Lokelma) packet 10 g, Oral, QDAY at 1300 tamsulosin (Flomax) capsule 0.4 mg, Oral, QDAY CONTINUOUS MEDICATIONS: 0.9% NaCl flush bag, Intravenous, CONTINUOUS PRN PRN MEDICATIONS: Or Or 0.9% NaCl flush bag, Intravenous, CONTINUOUS PRN acetaminophen (Tylenol) tablet 650 mg, Oral, q6h PRN benzonatate (Tessalon) capsule 100 mg, Oral, TID PRN cyclobenzaprine (Flexeril) tablet 5 mg, Oral, TID PRN dextrose 10 % IV bolus, Intravenous, PRN dextrose 10 % IV bolus, Intravenous, PRN glucagon (Glucagen) injection 1 mg, Subcutaneous, PRN glucose (Diabetic Use) oral gel, Oral, PRN HYDROcodone-acetaminophen (Opal) 5-325 MG tablet 1 tablet, Oral, q4h PRN ondansetron (Zofran) injection 4 mg, Intravenous, q6h PRN Recent Labs Component Name 05/18/24 0338 05/17/24 0946 05/16/24 0309 WBC 14.5* 15.5* 21.7* HGB 7.7* 7.1* 7.3* HCT 24.7* 23.2* 23.6* PLTCOUNT 330 284 300 Recent Labs Component Name 05/19/24 0216 05/13/24 1830 09/17/23 1247 SODIUM 136 - - POTASSIUM 5.2* - 3.8 CHLORIDE 110* - - CO2 20* - 26 BUN 36* - 18 CREATININE 1.58* - 0.75 GLUCOSE 190* - 119* CALCIUM 8.6 - 9.6 ALBUMIN 1.6* - - ALKPHOS - - 84 ALT - - 11 AST - - 12 EGFR 55* - >90 - = values in this interval not displayed. No results for input(s): INR in the last 44340 hours. No results for input(s): PT in the last 71887 hours. No results for input(s): PTT in the last 16974 hours. GENERAL: Conversant; NAD PSYCHE: Alert and oriented to person, place, and time. Appropriate affect noted. EYES: PERRLA; No scleral icterus. Conjuctiva moist NECK: Supple; no masses. Trachea midline. No thyromegaly Patient Vitals for the past 24 hrs: Temp Pulse Resp BP SpO2 05/19/24 1642 98.7 ??F (37.1 ??C) 85 17 118/79 95 % 05/19/24 1121 98.7 ??F (37.1 ??C) 86 17 141/80 95 % 05/19/24 0728 98.5 ??F (36.9 ??C) 86 18 133/73 96 % 05/19/24 0403 98.9 ??F (37.2 ??C) 88 16 147/81 95 % 05/19/24 0044 99.2 ??F (37.3 ??C) 87 16 122/63 96 % 05/19/24 0015 -- 79 28 -- 95 % 05/18/24 1949 98.6 ??F (37 ??C) 86 18 144/76 96 % 05/18/24 1908 98.6 ??F (37 ??C) 73 18 123/68 97 % Lower extremity VASCULAR: Dorsalis pedis pulses: Right 0/4 Left 0/4 Posterior tibial pulses: Right 0/4 Left 0/4 Patient shows: decreased hair growth thin atrophic skin No edema noted bilaterally LYMPHATICS: Lymphedema is noted bilaterally. No painful popliteal or inguinal nodes DERMATOLOGIC: Skin color and texture are: Ulceration located: Left foot There is a large open ulceration noted to the plantar aspect of left foot with granular wound base and < 40% yellowish fibrin, necrosis or slough noted to wound base. There is exposed tendon and bone noted. There continues to be franchesca wound erythema noted extending proximally to left calf. There is moderate serous drainage noted. There is no malodor noted. Size 11.0cmx 15.0cm x 2.5cm NEUROLOGIC: Protective Sensation is absent with 5.07 SWMF bilaterally at toes and MPJ levels Patient can not distinguish between sharp and dull. Proprioception is intact. MUSCULO: Manual Muscle strength is diminsihed in the anterior and posterior muscle groups bilateral feet andlower limbs. Blood Culture: Wound Culture: Arterial Doppler: Order Xray: COMPARISON: 03/06/2023 FINDINGS: No acute fracture or dislocation identified. Accessory ossicle at the base of the 5th metatarsal. No osseous cortical erosions. No radiopaque foreign body. Soft tissue gas within the hindfoot. Diffuse soft tissue swelling of the foot. IMPRESSION: Diffuse soft tissue swelling of the foot. Soft tissue gas within the hindfoot. No acute osseous abnormality. MRI: Ordered Culture Bone calcaneus Left 05/15/24 Collected 05/15/2024 16:33 Status: Preliminary result Visible to patient: No (not released) Dx: Left foot infection Specimen Information: Foot; Microbiology 0 Result Notes Culture Heavy Morganella morganii Critical Heavy Streptococcus agalactiae (Group B) Critical Rare Proteus vulgaris Critical Susceptibility testing of penicillin, other beta-lactam antibiotics, and vancomycin is not necessary for beta-hemolytic streptococci groups A,B,C and G because resistant strains have not been recognized. Surgical Description: Calcaneus Bone Left Foot Culture wound Left foot 05/15/24 Collected 05/15/2024 16:34 Status: Preliminary result Visible to patient: No (not released) Dx: Left foot infection Specimen Information: Foot; Microbiology 0 Result Notes Culture Rare Streptococcus agalactiae (Group B) Critical Susceptibility testing of penicillin, other beta-lactam antibiotics, and vancomycin is not necessary for beta-hemolytic streptococci groups A,B,C and G because resistant strains have not been recognized. Surgical Description: Left Foot Pathology: Biopsy taken 05/15/24. Awaiting results. Patient Glucose Bedside (mg/dL) in the past 24 hrs: 05/18/24 1949, Glucose Bedside (mg/dL):249 mg/dL 05/19/24 0728, Glucose Bedside (mg/dL):172 mg/dL 05/19/24 1209, Glucose Bedside (mg/dL):177 mg/dL 05/19/24 1718, Glucose Bedside (mg/dL):173 mg/dL ASSESSEMENT: 1. Surgical Debridement of left foot wound including bone biopsy 2. Infection left foot 3. Osteomyelitis left foot 4. Diabetic neuropathic ulceration - 5. PVD 6. Neuropathy 7. Diabetes Infection left foot/ Osteomyelitis left foot - Cefepime (Maxipime) 2,000mg every 8 hours - Metronidazole 500mg every 8 hours - Vancomycin 1500mg every 12 hours S/P Surgical Debridement of left foot wound including bone biopsy Diabetic neuropathic ulceration left foot - Dressing instructions: Cleanse left foot wound with vashe. Blot dry. Apply betadine soaked gauze to wound base. Cover with secondary dry dressings including 4x4s, abd pad, kerlix and dee bandage. Change dressing daily. - Weight bearing: Ambulate non weight bearing to left foot with walker. Neuropathy/ Type II Diabetes - Monitor blood glucose - Internal medicine following PLAN: Wound base with yellowish slough and fibrin with drainage. Plan to return to operating room for surgical debridement. Procedure: Debridement of left foot wound with possible application of skin graft substitute. Patient is at high risk for limb loss. Thank you for asking [facility], Dr. Abby Quinn to participate in the care of your patient. Please call [phone] (Office), (Exchange), (Cell #, Call/ Text) with any questions or concerns. MENT SETTER HELPER * Dexter Cotto OT - 05/19/2024 4:22 PM CST Occupational Therapy Treatment Summary Chart reviewed for diagnosis and medical systems review. Nursing consented for OT. Explained purpose of OT and patient consented to participate in therapy. RECOMMENDATIONS/PLAN: Pt would benefit from continued OT during hospitalization in order to addressactivity tolerance, safety, and independence with self care tasks and functional mobility. Discharge OT Discharge Recommendations: Patient would benefit from intensive 3-hour multidisciplinary therapy This recommendation is made due to ongoing intensive OT functional needs: ability to actively participate in intensive therapy 3 hours/day, 5 days a week;patient has the need for more than one skilled therapy service;not at baseline due to impaired ability to complete ADL's;motivated to participatein therapy;likely to return to the community at discharge with support system;functional mobility is significantly below baseline;patient and/or caregiver require specialized training;patient demonstrates a significant functional decline and would benefit from skilled therapy intervention to restore function;patient has the ability to progress and demonstrate measurable gains as a result of skilled therapy AM-PAC Daily Activity Raw Score:: 14 ADMIT: 1. Ulcer of left foot with other severity ([facility]) 2. CHRISTIE (acute kidney injury) (HCC) 3. Left foot infection PPE worn by staff: gloves Precautions: Fall risk, NWB LLE SUBJECTIVE: I am motivated to get better and to adhere to my precautions Psychosocial: Patient Behaviors: Calm;Cooperative Pt's goal for therapy:Regain PLOF OBJECTIVE: Pain Assessment: Pain Assessment Pain Scale/Observation: No/denies pain Cognition: Level of Consciousness-Adult: (Alert) Cognition: (Oriented x 4) Attention Span: Appears intact Functional Mobility: Bed Mobility: Supine to Sit: Stand By Assist;Requires Verbal Cues for Safety Sit to Supine: Stand By Assist;Requires Verbal Cues for Safety Transfers: Sit to Stand: Minimal Assistance;Requires Verbal Cues for Safety;Requires Verbal Cues for Technique Stand to Sit: Minimal Assistance;Requires Verbal Cues for Safety;Requires Verbal Cues for Technique Bed to Chair: (pt not able to squat or stand pivot. bariatric drop armchair not available for sliding board transfer training) Gait belt, initially attempted with bariatric WW, transitioned to SECURITIES SETTLEMENT PROCESSOR to provide tactile/physical cues and to maintain NWB LLE. Mobility: Distance Ambulated (ft): (NWB LLE) ADL Tasks: Based on observation and clinical judgement Feeding: Complete Ray Oral Facial Hygiene: Set-up Bathing: Maximal Assistance Upper Body Dressing: Minimal Assistance Lower Body Dressing: Total Assistance Toileting: Total Assistance Activity Tolerance/Vital Signs: Activity Tolerance: Requires seated rest breaks Pt denies dizziness/SoB throughout session. Oxygen Therapy: RA ASSESSMENT: A co-treat was performed with Physical Therapy to optimize patient performance and outcomes as patient has poor activity tolerance, and requires assist of a second skilled clinician due to complex mobility needs. The co-treatment benefits the patient by providing quality treatments through interdisciplinary methods. Pt in bed upon OT arrival, agreeable to therapy session. Pt participated in bed mobility, functional transfer training, and self care ADL tasks with levels of assist noted above. Pt required extendedtime to complete all tasks d/t pain, generalized weakness, and decreased activity tolerance. Pt required max verbal and tactile cues for NWB LLE, body mechanics, technique, and hand placement during transfers. Pt completed 3x sit <> stands to increase independence, safety, functional mobility, strength, and endurance. Initial attempt pt unable to maintain NWB LLE despite max A and max verbal and tactile cues. Pt successful last 2 attempts and demo NWB LLE. Transfer to recliner not completed d/t pt with difficulty maintain NWB LLE and bariatric drop arm chair not available to transfer to. Pt completed ADLs from seated position d/t NWB LLE and decreased strength/endurance. Pt limited bypain, decreased activity tolerance, decreased knowledge of condition, impaired balance, and generalized weakness. Pt positioned for comfort in bed at end of session with all immediate needs met as OTdeparts. Call light and phone in reach with bed alarm activated. All lines, monitors, IV's, equipment in place and intact pre and post visit. RNFátima, notified of patient's performance/location end of session. Educated patient/family in fall prevention, role of OT, ADLs, functional mobility, transfers, safety, energy conservation, NWB LLE. Please refer to the Filed Flowsheet OT Treatment for further details. Refer to care plan for goals. If this is the last Occupational Therapy visit, this serves as the discharge summary. YURIDIA RenteriaR/Steffi [phone] MENT SETTER HELPER * Manpreet Stuart MD - 05/19/2024 3:22 PM CST Progress Note Admit Date: 05/13/2024 4:58 PM Hospital Day: 6 Clinical Course 43 y/o WM with h/o Morbid obesity, DM, Depression, GERD, BPH who was transferred from [facility] 2/2 infected L foot ulcer and being managed for focal acute OM of the left foot s/p I&D on 05/15 by Podiatry. Intra Op cultures grew multiorganism. ID following and patient is on antibiotics. Nephrology following for CHRISTIE. New Symptoms Patient has no new symptoms HDS. Data Vitals: 05/19/24 0044 05/19/24 0403 05/19/24 0728 05/19/24 1121 BP: 122/63 147/81 133/73 141/80 Pulse: 87 88 86 86 Resp: 16 16 18 17 Temp: 99.2 ??F (37.3 ??C) 98.9 ??F (37.2 ??C) 98.5 ??F (36.9 ??C) 98.7 ??F (37.1 ??C) SpO2: 96% 95% 96% 95% Weight: Height: Intake/Output Summary (Last 24 hours) at 05/19/2024 1522 Last data filed at 05/19/2024 1418 Gross per 24 hour Intake 960 ml Output 4300 ml Net -3340 ml My review of labs, imaging, notes and other tests shows no new significant findings. Recent Labs Component Name 05/18/24 0338 05/17/24 0946 05/16/24 0309 WBC 14.5* 15.5* 21.7* HGB 7.7* 7.1* 7.3* HCT 24.7* 23.2* 23.6* PLTCOUNT 330 284 300 Recent Labs Component Name 05/19/24 0216 05/18/24 0338 05/17/24 0500 SODIUM 136 136 135* POTASSIUM 5.2* 4.7 4.2 CHLORIDE 110* 111* 107 CO2 20* 21* 20* BUN 36* 35* 37* CREATININE 1.58* 1.62* 1.83* GLUCOSE 190* 233* 207* CALCIUM 8.6 8.1* 7.9* MEDICATIONS FOR CURRENT ENCOUNTER: SCHEDULED MEDICATIONS: atorvastatin (Lipitor) tablet 40 mg, Oral, AT BEDTIME buPROPion XL 24hr (Wellbutrin-XL) tablet 150 mg, Oral, QDAY cefepime (Maxipime) 2,000 mg in 0.9% NaCl IV 50 mL IVPB, Intravenous, q8h enoxaparin (Lovenox) injection 40 mg, Subcutaneous, BID ferrous sulfate tablet 325 mg, Oral, QDAY AFTER LUNCH gabapentin (Neurontin) capsule 300 mg, Oral, TID insulin aspart (NovoLOG) pen 0-4 Units, Subcutaneous, AT BEDTIME insulin aspart (NovoLOG) pen 0-6 Units, Subcutaneous, TID WC insulin aspart (NovoLOG) pen 15 Units, Subcutaneous, TID WC insulin glargine (Lantus) pen 24 Units, Subcutaneous, AT BEDTIME metroNIDAZOLE (Flagyl) tablet 500 mg, Oral, q8h pantoprazole EC (Protonix) tablet 40 mg, Oral, QDAY polyethylene glycol 3350 (Miralax) packet 17 g, Oral, QDAY sodium zirconium cyclosilicate (Lokelma) packet 10 g, Oral, QDAY at 1300 tamsulosin (Flomax) capsule 0.4 mg, Oral, QDAY [] gadoterate meglumine (Dotarem/Clariscan) injection, Intravenous, Contrast - Once CONTINUOUS MEDICATIONS: 0.9% NaCl flush bag, Intravenous, CONTINUOUS PRN PRN MEDICATIONS: Or Or 0.9% NaCl flush bag, Intravenous, CONTINUOUS PRN acetaminophen (Tylenol) tablet 650 mg, Oral, q6h PRN benzonatate (Tessalon) capsule 100 mg, Oral, TID PRN cyclobenzaprine (Flexeril) tablet 5 mg, Oral, TID PRN dextrose 10 % IV bolus, Intravenous, PRN dextrose 10 % IV bolus, Intravenous, PRN glucagon (Glucagen) injection 1 mg, Subcutaneous, PRN glucose (Diabetic Use) oral gel, Oral, PRN HYDROcodone-acetaminophen (Opal) 5-325 MG tablet 1 tablet, Oral, q4h PRN ondansetron (Zofran) injection 4 mg, Intravenous, q6h PRN Exam General appearance: alert, cooperative, no distress Heart: regular rhythm, normal S1 and S2, without murmurs, rubs or gallops Lungs: breath sounds normal and symmetric; no rales or wheezes Abdomen: soft without mass, non-tender, with normal bowel sounds Extremities: no clubbing, cyanosis or edema AYANNA; L foot wrapped with clean dressing Assessment and Plan Active Problems: Acute osteomyelitis (HCC) Ulcer of left foot with other severity (HCC) Sepsis (HCC) CHRISTIE (acute kidney injury) (HCC) Hyperkalemia Hyperglycemia # Sepsis 2/2 infected L diabetic foot ulcer (POA) #Acute osteomyelitis of the left calcenues -s/p Excisional Debridement of left foot wound skin on 05/15, -Intra op Culture yielded multiorganism: morgnella morhanni, GBS, proteus. On cefepime, flagyl, ID following. -Repeat MRI negative for abscess, MONO WNL -Per podiatry, patient may need additional resection including a partial calcanectomy, left foot, and possibly more proximal amputation. # CHRISTIE #Mild hyperkalemia -likely multifactorial from sepsis VS infection related GN Vs prerenal -Renal USS showed no evidence of hydronephrosis or medical renal disease, Fena < 1% -nephrology following. Off IVF. Encouraged oral intake -hold home ARB, continue Flomax -Lokelma 10 qday, low K dirt # Anemia of chronic dx, POA -Hb stable, monitor h/h & transfuse PRBC if < 7 # DM, POA =Continue lantus 24U, novolog 15 u, Continue SSI -A1c 6.6% # GERD, POA == Continue PPI # Depression, POA == Continue Wellbutrin # BPH, POA == Continue Flomax Obesity -Optical Goods Worker following WEST -CPAP at night DVT prophylaxis :Lovenox Dispo: AR. Manpreet Stuart M.D [facility]. Internal Medicine MENT SETTER HELPER * Alma Rosa Barclay, PT - 05/19/2024 3:19 PM CST Physical Therapy Treatment Summary Chart review completed. Nursing consented for PT. Explained purpose of PT and patient consented to participate in therapy. RECOMMENDATIONS/PLAN: Continue skilled PT in acute care to maximize function and regain PLOF. PT Discharge Recommendations: Patient would benefit from intensive 3-hour multidisciplinary therapy This recommendation is made due to ongoing intensive PT functional needs: patient has the need for more than one skilled therapy service;motivated to participate in therapy;functional mobility is significantly below baseline;likely to return to the community at discharge with support system Recommended Transportation Method: Stretcher/Ambulance AM-PAC Basic mobility score for this patient is Mobility Raw Score:: 10 SUBJECTIVE: I just can not transfer to that chair it is too low. PT attempted to obtain bariatric drop arm recliner or bariatric WC with removable arm rest prior tosession> not available in the hospital. Patient's Goal for the Day: Pain Assessment: Pain Assessment Pain Scale/Observation: No/denies pain Pain Rating Score #1: (reports no pain at rest- reports pain 1x with sit> stand- pt not able to maintain NWB L LE. pt able to complete repeated sit<> stand NWB L LE with no report of pain L LE.) Sedation Level: 1-Awake and alert OBJECTIVE: Cognition: Level of Consciousness-Adult: (Oriented x4) Participation: Active Participation Attention Span: Appears intact Following Commands: Follows all commands and directions without difficulty Safety Judgement: Decreased awareness of need for safety Awareness of Errors: Decreased awareness of deficits Precautions: NWB L LE Bed Mobility: Supine to Sit: Stand By Assist;Requires Verbal Cues for Safety Sit to Supine: Stand By Assist;Requires Verbal Cues for Safety Transfers: Sit to Stand: Minimal Assistance;Requires Verbal Cues for Safety;Requires Verbal Cues for Technique Stand to Sit: Minimal Assistance;Requires Verbal Cues for Safety;Requires Verbal Cues for Technique Bed to Chair: (pt not able) Transfer Device: Gait belt;Walker-Bariatric Mobility: Distance Ambulated (ft): (pt not able) Weight Bearing Status-LLE: Non- Weight Bearing Balance: Sitting - Static: Good;Without Upper Extremity Support Sitting - Dynamic: Good;With One Upper Extremity Support Standing - Static: Fair +;With Both Upper Extremity's Support Activity Tolerance: on RA. Tolerates activity with rest periods Exercise: instr B LE AP - HS -QS ASSESSMENT: Patient seen for PT and OT co-treatment d/t requiring assist of 2 skilled therapists tomaximize safety and participation in simultaneous functional mobility and ADLs. Patient with poor activity tolerance, general weakness, NWB L LE requiring co tx. Patient progressing with sit> stand- initial sit> stand patient not able to maintain NWB L LEand was assisted to sitting EOB, on repeated trials 3 trials with ww pt able to achieve sit > stand maintaining NWB L LE and stand with ww ~ 45 sec with min a, with seated rest period. Pt not able to progress to stand pivot transfer to recliner. Call light and phone in reach - resting in supine with L LE elevated. All lines, monitors, IV's, equipment in place and intact pre and post visit. Pt educated in PT plan of care, fall precautions, and benefits of OOB activity. RN, , notified of patient's performance/location end of session. Please refer to the Filed Flowsheet for further details. Refer to Plan of Care for PT goals. If this is the last Physical Therapy visit, this note serves as the discharge summary. [facility] PT [id number] MENT SETTER HELPER * Hattie Liao MD - 05/19/2024 2:35 PM CST Infectious Diseases Consult Note Patient's Primary Care Physician: Nguyễn Bingham MD Reason for Consultation: foot ulcer Referring Physcian: No admitting provider for patient encounter. Name: Rene Hyatt Age: [age] year old 5 Chief Complaint/History of Present Illness Had significant pain in the left heel while working with therapy Wants to hold off on narcotics No fever Objective: Review of Systems General: no fatigue/fever/chills Skin: no rashes/lesions Respiratory: no cough/sob Cardiovascular: no cp/palpitations Gastrointestinal: no nausea/diarrhea Genitourinary: no dysuria/hematuria Musculoskeletal: Left foot pain Exam Vitals: 05/19/24 0044 05/19/24 0403 05/19/24 0728 05/19/24 1121 BP: 122/63 147/81 133/73 141/80 Pulse: 87 88 86 86 Resp: 16 16 18 17 Temp: 99.2 ??F (37.3 ??C) 98.9 ??F (37.2 ??C) 98.5 ??F (36.9 ??C) 98.7 ??F (37.1 ??C) SpO2: 96% 95% 96% 95% Weight: Height: Temp (30hrs) Max:99.2 ??F (37.3 ??C) General appearance: Alert, no distress Lungs: clear to auscultation bilaterally Heart: regular rate and rhythm, S1, S2 normal, no murmur, Abdomen: soft, non-tender; bowel sounds normal Extremities: no edema Left foot wrapped Skin: no rash Lines: MEDICATIONS FOR CURRENT ENCOUNTER: SCHEDULED MEDICATIONS: atorvastatin (Lipitor) tablet 40 mg, Oral, AT BEDTIME buPROPion XL 24hr (Wellbutrin-XL) tablet 150 mg, Oral, QDAY cefepime (Maxipime) 2,000 mg in 0.9% NaCl IV 50 mL IVPB, Intravenous, q8h enoxaparin (Lovenox) injection 40 mg, Subcutaneous, BID ferrous sulfate tablet 325 mg, Oral, QDAY AFTER LUNCH gabapentin (Neurontin) capsule 300 mg, Oral, TID insulin aspart (NovoLOG) pen 0-4 Units, Subcutaneous, AT BEDTIME insulin aspart (NovoLOG) pen 0-6 Units, Subcutaneous, TID WC insulin aspart (NovoLOG) pen 15 Units, Subcutaneous, TID WC insulin glargine (Lantus) pen 24 Units, Subcutaneous, AT BEDTIME metroNIDAZOLE (Flagyl) tablet 500 mg, Oral, q8h pantoprazole EC (Protonix) tablet 40 mg, Oral, QDAY polyethylene glycol 3350 (Miralax) packet 17 g, Oral, QDAY sodium zirconium cyclosilicate (Lokelma) packet 10 g, Oral, QDAY at 1300 tamsulosin (Flomax) capsule 0.4 mg, Oral, QDAY [] gadoterate meglumine (Dotarem/Clariscan) injection, Intravenous, Contrast - Once Data Recent Labs Component Name 05/18/24 0338 05/17/24 0946 05/16/24 0309 WBC 14.5* 15.5* 21.7* HGB 7.7* 7.1* 7.3* HCT 24.7* 23.2* 23.6* PLTCOUNT 330 284 300 Recent Labs Component Name 05/19/24 0216 05/18/24 0338 05/17/24 0500 SODIUM 136 136 135* POTASSIUM 5.2* 4.7 4.2 CHLORIDE 110* 111* 107 CO2 20* 21* 20* BUN 36* 35* 37* CREATININE 1.58* 1.62* 1.83* GLUCOSE 190* 233* 207* CALCIUM 8.6 8.1* 7.9* Recent Labs Component Name 05/19/24 02105/18/24 0338 05/16/24 0309 05/14/24 0403 09/17/23 1247 ALBUMIN 1.6* 1.5* 1.4* - - ALKPHOS - - - - 84 ALT - - - - 11 AST - - - - 12 - = values in this interval not displayed. No results for input(s): CDIFFTOXINAB in the last 93813 hours. No results for input(s): SEDRATE in the last 92081 hours. No results for input(s): CRP in the last 96470 hours. Recent Labs Component Name 05/14/24 0403 CK 136 . Recent Labs Component Name 05/16/24 0904 05/14/24 1706 VANCOPEAK 40.3* 25.0 Recent Labs Component Name 05/15/24 0013 09/17/23 1247 HGBA1C 6.6* 6.2* Recent Labs Component Name 05/16/24 1257 COLORUA Yellow CLARITYUA Turbid* SPECGRAVUA 1.016 PHUA 5.5 PROTEINUA 1+* BLOODUA 2+* LEUKOCYTEUA 75 MIKKI/uL* NITRITEUA Negative GLUCOSEUA Normal KETONEUA Trace* BILIRUBINUA Negative UROBILINUA Normal WBCUA 6-10* RBCUA None Seen BACTUA None Seen Microbiology Radiology Assessment --Ulcer of left foot? Om 05/14 cx swab - morganella Xray- diffuse gas I hindfoot Mri -mild osteo of the lateral calcaneal tubercle Cultures with Morganella and group B strep Debridement to bone level 05/15 Path with acute osteomyelitis Cx GBS, Morganella, proteus -- christie --Dm--uncontrolled --htn --anemia --anxiety, depression -- bph -- mo --non compliance Plan - on cefepime, po flagyl, - podiatry on case, - monitoring labs - f.u bcx , wound cx - local care of wounds Will need PICC line and 6 weeks of antibiotics Discussed with nursing Hattie Liao MD MENT SETTER HELPER * Mary Roach, RD/LD - 05/19/2024 1:07 PM CST Images from the original note were not included. BRIEF SYNOPSIS: Nutrition Risk Identified but does not meet malnutrition criteria. Nutrition Plan: Current diet order: Cardiac Standard;Consistent Carb Standard Current supplement order: Bao BID Recommendation to Physician: Recommend adding MVI supplements Discharge Needs: Nutritional Supplement at Discharge: Yes CLINICAL NUTRITION ASSESSMENT: Pt seen for follow up. Pt reports a good appetite. Notes drinking Bao. Denies GI issues. Wound notes and images reviewed. Pt is on Cardiac, Consistent Carb diet and receiving Bao BID. Bao (Wound Healing Supplement) provides 90 calories, 14 grams amino acid (7 gm L-arginine & 7 gm L-glutamine), 2.5 grams protein(hydrolyzed collagen), 8 grams of carb per serving along with 9.5mg Zinc, 300mg Vit C, 15 mg Vitamin E, and 1.2 mcg Vitamin B12. Labs noted, K elevated, on Lokelma. BG elevated, on insulin. H/H low, agree with ferrous sulphate supplementation. Protonix in for GI issues. Recommend adding MVI supplements. No new weight noted. Will follow at moderate risk protocol. Med/Surg History and Clinical Diagnoses: infected DM foot ulcer, ARF, DM, HTN, Anemia, Anxiety/depression, GERD, BPH, obesity, non compliance Height: 200.7 cm (6' 7 ) BMI: Body mass index is 45.67 kg/m??. BMI Range: Morbidly Obese Class 3 IBW/lb (Calculated) Male: 220 Recent Weights/Methods 07/30/2023 1352 09/17/2023 1059 10/01/2023 1058 10/08/2023 0833 10/12/2023 1039 10/29/2023 1255 05/13/20242212 Weight: 158.3 kg (349 lb) 157.4 kg (347 lb) 166.7 kg (367 lb 9.6 oz) 164.7 kg (363 lb) 164.7 kg (363 lb) 164.7 kg (363 lb) 183.9 kg (405 lb 6.4 oz) Weight Method : -- -- -- -- -- -- Standing scale UBW: Unsure Unintentional weight change: None new since 05/13 PO INTAKE Current diet order: Cardiac Standard;Consistent Carb Standard Nutrition recommendation: agree with current nutrition order Food Allergies: No known food allergies Last % Meal Taken: 100 % (05/19/24918) 48 hr PO INTAKE % Meal Taken Av % Min: 80 % Max: 100 % Current supplement order: Bao BID Supplement(s) Consumed- Last 48 hours None Pain affecting intake: No Chewing/Swallowing: None GI Concerns: None Stools: Stool Appearance : Soft (05/19/24954) Stool Amount: Small (05/19/24954) Skin/Wound: LLE wound Estimated Needs: KCAL: 3075-2008 kcals (11-14 kcal/kg of ABW) Protein (g): 138-183 g of PRO (1.5- 2.0 g of PRO/kg of IBW) Fluid (ml): 1 ml/kcal Recommended Access Route: PO Labs: Recent Labs Component Name 05/19/24 0216 05/18/24 0338 05/17/24 0500 05/16/24 0309 05/13/24 1830 09/17/23 1247 SODIUM 136 136 135* 133* - - NA - - - - - 140 POTASSIUM 5.2* 4.7 4.2 4.2 - 3.8 CHLORIDE 110* 111* 107 107 - - CO2 20* 21* 20* 19* - 26 BUN 36* 35* 37* 35* - 18 CREATININE 1.58* 1.62* 1.83* 2.01* - 0.75 GLUCOSE 190* 233* 207* 185* - 119* CALCIUM 8.6 8.1* 7.9* 8.0* - 9.6 ALT - - - - - 11 ALKPHOS - - - - - 84 AST - - - - - 12 EGFR 55* 53* 46* 41* - >90 ALBUMIN 1.6* 1.5* - 1.4* - - - = values in this interval not displayed. Recent Labs Component Name 05/19/24 0216 05/18/24 0338 05/16/24 0309 PHOS 3.4 3.3 4.5 No results for input(s): MAGNESIUM in the last 30331 hours. Recent Labs Component Name 05/18/24 0338 05/17/24 0946 05/16/24 0309 HGB 7.7* 7.1* 7.3* HCT 24.7* 23.2* 23.6* Recent Labs Component Name 05/15/24 0013 09/17/23 1247 HGBA1C 6.6* 6.2* Patient Vitals for the past 30 hrs: Glucose Bedside (mg/dL) 05/19/24 1209 177 mg/dL 05/19/24 0728 172 mg/dL 05/18/24 1949 249 mg/dL 05/18/24 1708 254 mg/dL 05/18/24 1157 200 mg/dL 05/18/24 1100 200 mg/dL 05/18/24 0740 197 mg/dL MEDICATIONS FOR CURRENT ENCOUNTER: SCHEDULED MEDICATIONS: atorvastatin (Lipitor) tablet 40 mg, Oral, AT BEDTIME buPROPion XL 24hr (Wellbutrin-XL) tablet 150 mg, Oral, QDAY cefepime (Maxipime) 2,000 mg in 0.9% NaCl IV 50 mL IVPB, Intravenous, q8h enoxaparin (Lovenox) injection 40 mg, Subcutaneous, BID ferrous sulfate tablet 325 mg, Oral, QDAY AFTER LUNCH gabapentin (Neurontin) capsule 300 mg, Oral, TID insulin aspart (NovoLOG) pen 0-4 Units, Subcutaneous, AT BEDTIME insulin aspart (NovoLOG) pen 0-6 Units, Subcutaneous, TID WC insulin aspart (NovoLOG) pen 15 Units, Subcutaneous, TID WC insulin glargine (Lantus) pen 24 Units, Subcutaneous, AT BEDTIME metroNIDAZOLE (Flagyl) tablet 500 mg, Oral, q8h pantoprazole EC (Protonix) tablet 40 mg, Oral, QDAY polyethylene glycol 3350 (Miralax) packet 17 g, Oral, QDAY sodium zirconium cyclosilicate (Lokelma) packet 10 g, Oral, QDAY at 1300 tamsulosin (Flomax) capsule 0.4 mg, Oral, QDAY [] gadoterate meglumine (Dotarem/Clariscan) injection, Intravenous, Contrast - Once CONTINUOUS MEDICATIONS: 0.9% NaCl flush bag, Intravenous, CONTINUOUS PRN PRN MEDICATIONS: Or Or 0.9% NaCl flush bag, Intravenous, CONTINUOUS PRN acetaminophen (Tylenol) tablet 650 mg, Oral, q6h PRN benzonatate (Tessalon) capsule 100 mg, Oral, TID PRN cyclobenzaprine (Flexeril) tablet 5 mg, Oral, TID PRN dextrose 10 % IV bolus, Intravenous, PRN dextrose 10 % IV bolus, Intravenous, PRN glucagon (Glucagen) injection 1 mg, Subcutaneous, PRN glucose (Diabetic Use) oral gel, Oral, PRN HYDROcodone-acetaminophen (Opal) 5-325 MG tablet 1 tablet, Oral, q4h PRN ondansetron (Zofran) injection 4 mg, Intravenous, q6h PRN Edema RLE Edema: Moderate pitting, indentation subsides rapidly (05/19/24 0845) LLE Edema: Deep pitting, indentation remains for a short time (05/19/24 0845) Nutrition Diagnostic Statement: Increased nutrient needs related to:: increased demands for wound healing as evidenced by:: estimated protein needs .. (138-183 g) Nutrition Intervention: Meals and snacks:;Medical Food Supplements: Education needed: Wound Healing Education Provided: Yes;Handout Provided (05/14/24 1200) Pt was educated on earlier Expected level of compliance: Fair Monitoring: PO intake ONS acceptance GI issues Labs Skin Weights Monitor per nutrition guidelines. Risk Level: Moderate Evaluation: Nutrition Goal: Total intake will meet estimated nutrient needs Nutrition Goal Timeframe: Throughout stay Nutrition Goal Progress: Progressing toward goal;Continue with current goal Mary Vincent RD/CAYETANO, PhD 05/19/2024 1:12 PM Ascom [id number] MENT SETTER HELPER * Katerina Weaver DO - 05/19/2024 12:56 PM CST I have seen and examined the patient with the resident and I agree with the findings and plan of care as documented by the resident. In addition: Discussed reducing K in diet. Will modify diet order to reflect low K. Start lokelma 10g daily in interim. Date of Service: 05/19/2024 Katerina Weaver DO Renal Follow-Up Note Name: Rene Hyatt Age: [age] year old Race: Sex: male Patient's Primary Care Physician: Nguyễn Bingham MD Patient's Attending Physician: Manpreet Stuart MD Admit Date: 05/13/2024 4:58 PM Hospital Day: 6 Reason for visit: Foot wound New Symptoms Patient seen laying in bed, reported eating lots of banana and potatoes, mild hyperkalemia today. No new complaints Exam: Vitals: 05/19/24 0044 05/19/24 0403 05/19/24 0728 05/19/24 1121 BP: 122/63 147/81 133/73 141/80 Pulse: 87 88 86 86 Resp: 16 16 18 17 Temp: 99.2 ??F (37.3 ??C) 98.9 ??F (37.2 ??C) 98.5 ??F (36.9 ??C) 98.7 ??F (37.1 ??C) SpO2: 96% 95% 96% 95% Weight: Height: General appearance: alert, cooperative, no distress, obese Head: normocephalic, without trauma Neck: range of motion is intact, Lungs: breath sounds normal and symmetric; Heart: regular rhythm, normal S1 and S2, Abdomen: soft without mass, non-tender, Extremities: left lower extremity wound and edema with dressing clean and dry Neurologic: mental status normal; alert and oriented X 3; Laboratory Data Recent Labs Component Name 12/11/33705/17/2446 05/16/24 030 WBC 14.5* 15.5* 21.7* HGB 7.7* 7.1* 7.3* HCT 24.7* 23.2* 23.6* PLTCOUNT 330 284 300 Recent Labs Component Name 05/19/2421505/18/248 05/17/24 0500 SODIUM 136 136 135* POTASSIUM 5.2* 4.7 4.2 CHLORIDE 110* 111* 107 CO2 20* 21* 20* BUN 36* 35* 37* CREATININE 1.58* 1.62* 1.83* GLUCOSE 190* 233* 207* CALCIUM 8.6 8.1* 7.9* No results for input(s): MAGMGDL in the last 32829 hours. Recent Labs Component Name 05/19/2421505/18/2433705/16/24308 PHOS 3.4 3.3 4.5 Glucose Bedside (mg/dL): 177 mg/dL (05/19/24 1209) Home Medications Medications Prior to Admission Medication Sig Dispense Refill acetaminophen (Tylenol) 500 MG tablet Take 1 (one) tablet by mouth every 6 hours as needed Alcohol Swabs (Alcohol Prep) PADS amLODIPine (Norvasc) 5 MG tablet Take 1 (one) tablet by mouth once daily atorvastatin (Lipitor) 20 MG tablet Take 1 (one) tablet by mouth at bedtime buPROPion SR 12hr (Wellbutrin-SR) 150 MG tablet Take 1 (one) tablet by mouth 2 times daily buPROPion XL 24hr (Wellbutrin-XL) 150 MG tablet Take 1 (one) tablet by mouth once daily (Patient not taking: Reported on 05/18/2024) 90 tablet 4 calcium carbonate (Os-Wilfredo 500) 1250 (500 Ca) MG tablet Take 1 (one) tablet by mouth once daily (Patient not taking: Reported on 05/18/2024) cephalexin (Keflex) 500 MG capsule (Patient not taking: Reported on 10/08/2023) Cholecalciferol 1.25 MG (58158 UT) Take 50,000 Units by mouth Two times a week (Patient not taking:Reported on 05/18/2024) famotidine (Pepcid) 40 MG tablet Take 1 (one) tablet by mouth at bedtime (Patient not taking: Reported on 05/18/2024) ferrous sulfate 325 (65 FE) MG tablet Take 1 (one) tablet by mouth daily with breakfast furosemide (Lasix) 20 MG tablet Take 1 (one) tablet by mouth once daily gabapentin (Neurontin) 300 MG capsule Take 1 (one) capsule by mouth 3 times daily 270 capsule 3 insulin lispro (HumaLOG;ADMelog) 100 UNIT/ML pen Inject 10 (ten) Units subcutaneously 3 times dailybefore meals Lancets (ONETOUCH DELICA PLUS 33G EXTRA FINE LANCET) Lantus SoloStar pen Inject 20 (twenty) Units subcutaneously at bedtime losartan (Cozaar) 25 MG tablet Take 1 (one) tablet by mouth once daily metFORMIN (Glucophage) 1000 MG tablet Take 0.5 (one-half) tablet by mouth 2 times daily (Patient not taking: Reported on 05/18/2024) metFORMIN (Glucophage) 500 MG tablet Take 1 (one) tablet by mouth 2 times daily with morning and evening meal oyster shell calcium 500 MG tablet (Patient not taking: Reported on 05/18/2024) pantoprazole EC (Protonix) 40 MG tablet tamsulosin (Flomax) 0.4 MG capsule Take 1 (one) capsule by mouth once daily At the same time every day after a meal. 90 capsule 4 tirzepatide (Mounjaro) 5 MG/0.5ML injection Inject 5 (five) mg subcutaneously every 7 days TRUEplus Pen Rentz 31G X 5 MM needle Trulicity 1.5 MG/0.5ML injection (Patient not taking: Reported on 05/18/2024) vitamin D, ergocalciferol, (Drisdol) 1.25 MG (44662 UT) capsule Take 1 (one) capsule by mouth every7 days Takes on thursday vitamin D, ergocalciferol, (Drisdol) 1.25 MG (00463 UT) capsule (Patient not taking: Reported on 05/18/2024) Intake/Output Summary (Last 24 hours) at 05/19/2024 1301 Last data filed at 05/19/2024 0919 Gross per 24 hour Intake 720 ml Output 3000 ml Net -2280 ml Medications atorvastatin (Lipitor) tablet 40 mg, Oral, AT BEDTIME buPROPion XL 24hr (Wellbutrin-XL) tablet 150 mg, Oral, QDAY cefepime (Maxipime) 2,000 mg in 0.9% NaCl IV 50 mL IVPB, Intravenous, q8h enoxaparin (Lovenox) injection 40 mg, Subcutaneous, BID ferrous sulfate tablet 325 mg, Oral, QDAY AFTER LUNCH gabapentin (Neurontin) capsule 300 mg, Oral, TID insulin aspart (NovoLOG) pen 0-4 Units, Subcutaneous, AT BEDTIME insulin aspart (NovoLOG) pen 0-6 Units, Subcutaneous, TID WC insulin aspart (NovoLOG) pen 15 Units, Subcutaneous, TID WC insulin glargine (Lantus) pen 24 Units, Subcutaneous, AT BEDTIME metroNIDAZOLE (Flagyl) tablet 500 mg, Oral, q8h pantoprazole EC (Protonix) tablet 40 mg, Oral, QDAY polyethylene glycol 3350 (Miralax) packet 17 g, Oral, QDAY sodium zirconium cyclosilicate (Lokelma) packet 10 g, Oral, QDAY at 1300 tamsulosin (Flomax) capsule 0.4 mg, Oral, QDAY [] gadoterate meglumine (Dotarem/Clariscan) injection, Intravenous, Contrast - Once 0.9% NaCl flush bag, Intravenous, CONTINUOUS PRN Or Or 0.9% NaCl flush bag, Intravenous, CONTINUOUS PRN acetaminophen (Tylenol) tablet 650 mg, Oral, q6h PRN benzonatate (Tessalon) capsule 100 mg, Oral, TID PRN cyclobenzaprine (Flexeril) tablet 5 mg, Oral, TID PRN dextrose 10 % IV bolus, Intravenous, PRN dextrose 10 % IV bolus, Intravenous, PRN glucagon (Glucagen) injection 1 mg, Subcutaneous, PRN glucose (Diabetic Use) oral gel, Oral, PRN HYDROcodone-acetaminophen (Opal) 5-325 MG tablet 1 tablet, Oral, q4h PRN ondansetron (Zofran) injection 4 mg, Intravenous, q6h PRN Input /Output: Intake/Output Summary (Last 24 hours) at 05/19/2024 1301 Last data filed at 05/19/2024 0919 Gross per 24 hour Intake 720 ml Output 3000 ml Net -2280 ml Impression &Recommendations: CHRISTIE on CKD1 CKD likely 2/2 diabetic nephropathy with microabuminuria. Baseline in December 2023 was 0.79. Follows up with nephrology (Dr Plaza) outpatient for proteinuria. Workup 01/01/2024- ELOISA - neg, Dsdna- neg, C3, C4 neg, TAMY unremarkable, UA with microabuminuria of 1800mgm CHRISTIE Likely secondary to ATN from sepsis from left foot infection, versus infection related GN vs volume depletion ( initial urine sodium <20) in the setting of RAAS blockade ( on losartan at home). 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 Monitor urine output, renal function Avoid nephrotoxins and hypotension Bladder scan as needed, continue Flomax Mild hyperkalemia - patient reported eating lots of bananas and potatoes - Low K diet ordered - Lokelma 10g daily - patient having bowel movements, Miralax daily prn Hypertension Hold home losartan, resume on discharge Monitor blood pressure, avoid hypotension Anemia - likely multifactorial with inflammation and nutritional - monitor CBC and transfuse if hgb <[address] Meg Richardson MD PGY-3 Internal Medicine [facility] MENT SETTER HELPER * Kang Sanders RN - 05/19/2024 12:09 AM CST Problem: Fall Risk Goal: Fall risk and fall related injury risk are minimized (interventions related to the fall risk can be found in the flowsheet documentation) Outcome: Progressing Problem: Pain/Discomfort Goal: Patient exhibits reduced pain/discomfort as evidenced by pain scores Outcome: Progressing Goal: Patient uses pharmacological and non-pharmacological pain management strategies. Outcome: Progressing Goal: Patient verbalizes acceptable level of pain relief and ability to engage in desired activity. Outcome: Progressing Problem: Nutrient: Increased nutrient needs (specify) Goal: Total intake will meet estimated nutrient needs Outcome: Progressing Problem: Skin/Tissue Integrity - Adult Goal: Skin integrity remains intact Description: INTERVENTIONS: Outcome: Progressing Goal: Incisions, wounds, or drain sites healing without S/S of infection Description: INFECTIONS: Outcome: Progressing Goal: Oral mucous membranes remain intact Description: INTERVENTIONS: Outcome: Progressing MENT SETTER HELPER * Abby Quinn DPM - 05/18/2024 5:32 PM CST Admit Date: 05/13/2024 4:58 PM Hospital Day: 5 Name: Rene Hyatt Date: 05/18/2024 Medical Doctor: Nguyễn Bingham MD CC: Patient is seen at bedside for follow up for infection, and open ulceration left foot. HPI: Patient is S/P Surgical debridement of left foot wound with biopsy. Patient underwent surgical debridement on 05/15/24. Patient denies n/v/f/c, sob this am. The wound has been treated with Cefepime, and metronidazole, General: Alert and oriented x 3 Family History: No family history on file. Data Vitals: 05/18/24 1126 05/18/24 1201 05/18/24 1211 05/18/24 1636 BP: 132/81 138/75 138/75 116/76 Pulse: 88 84 Resp: 18 17 Temp: 98.3 ??F (36.8 ??C) 98.8 ??F (37.1 ??C) SpO2: 97% Weight: Height: Temp (30hrs) Max:99.1 ??F (37.3 ??C) Filed Wts: 05/13/24 2213 Weight: (!) 183.9 kg (405 lb 6.4 oz) MEDICATIONS FOR CURRENT ENCOUNTER: SCHEDULED MEDICATIONS: atorvastatin (Lipitor) tablet 40 mg, Oral, AT BEDTIME buPROPion XL 24hr (Wellbutrin-XL) tablet 150 mg, Oral, QDAY cefepime (Maxipime) 2,000 mg in 0.9% NaCl IV 50 mL IVPB, Intravenous, q8h enoxaparin (Lovenox) injection 40 mg, Subcutaneous, BID ferrous sulfate tablet 325 mg, Oral, QDAY AFTER LUNCH gabapentin (Neurontin) capsule 300 mg, Oral, TID insulin aspart (NovoLOG) pen 0-4 Units, Subcutaneous, AT BEDTIME insulin aspart (NovoLOG) pen 0-6 Units, Subcutaneous, TID WC insulin aspart (NovoLOG) pen 15 Units, Subcutaneous, TID WC insulin glargine (Lantus) pen 24 Units, Subcutaneous, AT BEDTIME metroNIDAZOLE (Flagyl) tablet 500 mg, Oral, q8h pantoprazole EC (Protonix) tablet 40 mg, Oral, QDAY tamsulosin (Flomax) capsule 0.4 mg, Oral, QDAY [COMPLETED] Inactivated Influenza Vaccine, Triv. (Flulaval Trivalent; 6mo+) (IIV3) 0.5 mL, Intramuscular, Immunization - Once [] gadoterate meglumine (Dotarem/Clariscan) injection, Intravenous, Contrast - Once CONTINUOUS MEDICATIONS: 0.9% NaCl flush bag, Intravenous, CONTINUOUS PRN PRN MEDICATIONS: Or Or 0.9% NaCl flush bag, Intravenous, CONTINUOUS PRN acetaminophen (Tylenol) tablet 650 mg, Oral, q6h PRN benzonatate (Tessalon) capsule 100 mg, Oral, TID PRN cyclobenzaprine (Flexeril) tablet 5 mg, Oral, TID PRN dextrose 10 % IV bolus, Intravenous, PRN dextrose 10 % IV bolus, Intravenous, PRN glucagon (Glucagen) injection 1 mg, Subcutaneous, PRN glucose (Diabetic Use) oral gel, Oral, PRN HYDROcodone-acetaminophen (Opal) 5-325 MG tablet 1 tablet, Oral, q4h PRN ondansetron (Zofran) injection 4 mg, Intravenous, q6h PRN Recent Labs Component Name 05/18/24 0338 05/17/24 0946 05/16/24 0309 WBC 14.5* 15.5* 21.7* HGB 7.7* 7.1* 7.3* HCT 24.7* 23.2* 23.6* PLTCOUNT 330 284 300 Recent Labs Component Name 05/18/24 0338 05/13/24 1830 09/17/23 1247 SODIUM 136 - - POTASSIUM 4.7 - 3.8 CHLORIDE 111* - - CO2 21* - 26 BUN 35* - 18 CREATININE 1.62* - 0.75 GLUCOSE 233* - 119* CALCIUM 8.1* - 9.6 ALBUMIN 1.5* - - ALKPHOS - - 84 ALT - - 11 AST - - 12 EGFR 53* - >90 - = values in this interval not displayed. No results for input(s): INR in the last 09724 hours. No results for input(s): PT in the last 13002 hours. No results for input(s): PTT in the last 90330 hours. GENERAL: Conversant; NAD PSYCHE: Alert and oriented to person, place, and time. Appropriate affect noted. EYES: PERRLA; No scleral icterus. Conjuctiva moist NECK: Supple; no masses. Trachea midline. No thyromegaly Patient Vitals for the past 24 hrs: Temp Pulse Resp BP SpO2 05/18/24 1636 98.8 ??F (37.1 ??C) 84 17 116/76 97 % 05/18/24 1211 -- -- -- 138/75 -- 05/18/24 1201 -- -- -- 138/75 -- 05/18/24 1126 98.3 ??F (36.8 ??C) 88 18 132/81 -- 05/18/24 0740 98.8 ??F (37.1 ??C) 87 18 136/82 95 % 05/18/24 0413 99.1 ??F (37.3 ??C) 86 16 119/74 94 % 05/18/24 0042 99.1 ??F (37.3 ??C) 88 20 105/75 95 % 05/17/242009 98.5 ??F (36.9 ??C) 85 20 127/78 95 % Lower extremity VASCULAR: Dorsalis pedis pulses: Right 0/4 Left 0/4 Posterior tibial pulses: Right 0/4 Left 0/4 Patient shows: decreased hair growth thin atrophic skin No edema noted bilaterally LYMPHATICS: Lymphedema is noted bilaterally. No painful popliteal or inguinal nodes DERMATOLOGIC: Skin color and texture are: Ulceration located: Left foot There is a large open ulceration noted to the plantar aspect of left foot with granular wound base and < 10% fibrin, necrosis or slough noted today. There is exposed tendon and bone noted. There continues to be franchesca wound erythema noted extending proximally to left calf. There is moderate serousdrainage noted. There is no malodor noted. Size 11.0cmx 15.0cm x 2.5cm NEUROLOGIC: Protective Sensation is absent with 5.07 SWMF bilaterally at toes and MPJ levels Patient can not distinguish between sharp and dull. Proprioception is intact. MUSCULO: Manual Muscle strength is diminsihed in the anterior and posterior muscle groups bilateral feet andlower limbs. Blood Culture: Wound Culture: Arterial Doppler: Order Xray: COMPARISON: 03/06/2023 FINDINGS: No acute fracture or dislocation identified. Accessory ossicle at the base of the 5th metatarsal. No osseous cortical erosions. No radiopaque foreign body. Soft tissue gas within the hindfoot. Diffuse soft tissue swelling of the foot. IMPRESSION: Diffuse soft tissue swelling of the foot. Soft tissue gas within the hindfoot. No acute osseous abnormality. MRI: Ordered Culture Bone calcaneus Left 05/15/24 Collected 05/15/2024 16:33 Status: Preliminary result Visible to patient: No (not released) Dx: Left foot infection Specimen Information: Foot; Microbiology 0 Result Notes Culture Heavy Morganella morganii Critical Heavy Streptococcus agalactiae (Group B) Critical Rare Proteus vulgaris Critical Susceptibility testing of penicillin, other beta-lactam antibiotics, and vancomycin is not necessary for beta-hemolytic streptococci groups A,B,C and G because resistant strains have not been recognized. Surgical Description: Calcaneus Bone Left Foot Culture wound Left foot 05/15/24 Collected 05/15/2024 16:34 Status: Preliminary result Visible to patient: No (not released) Dx: Left foot infection Specimen Information: Foot; Microbiology 0 Result Notes Culture Rare Streptococcus agalactiae (Group B) Critical Susceptibility testing of penicillin, other beta-lactam antibiotics, and vancomycin is not necessary for beta-hemolytic streptococci groups A,B,C and G because resistant strains have not been recognized. Surgical Description: Left Foot Pathology: Biopsy taken 05/15/24. Awaiting results. Patient Glucose Bedside (mg/dL) in the past 24 hrs: 05/16/242031, Glucose Bedside (mg/dL):317 mg/dL 05/17/24 0754, Glucose Bedside (mg/dL):254 mg/dL 05/17/24 1159, Glucose Bedside (mg/dL):236 mg/dL 05/17/24 1656, Glucose Bedside (mg/dL):236 mg/dL ASSESSEMENT: 1. Surgical Debridement of left foot wound including bone biopsy 2. Infection left foot 3. Osteomyelitis left foot 4. Diabetic neuropathic ulceration - 5. PVD 6. Neuropathy 7. Diabetes Infection left foot/ Osteomyelitis left foot - Cefepime (Maxipime) 2,000mg every 8 hours - Metronidazole 500mg every 8 hours - Vancomycin 1500mg every 12 hours S/P Surgical Debridement of left foot wound including bone biopsy Diabetic neuropathic ulceration left foot - Dressing instructions: Cleanse left foot wound with vashe. Blot dry. Apply betadine soaked gauze to wound base. Cover with secondary dry dressings including 4x4s, abd pad, kerlix and dee bandage. Change dressing daily. - Weight bearing: Ambulate non weight bearing to left foot with walker. Neuropathy/ Type II Diabetes - Monitor blood glucose - Internal medicine following PLAN: Patient is S/P Surgical debridement of left foot wound with biopsy. The wound is stable today. There is no sign of failing tissue. There is no necrosis noted. There is no malodor noted. Will Monitor wound to to determine if additional debridement is necessary. Order MRI left lower limb for abscess. Patients infection is severe but clinically improved. Patient is at high risk for limb loss. Thank you for asking [facility], [facility], Dr. Abby Quinn to participate in the care of your patient. Please call [phone] (Office), (Exchange), (Cell #, Call/ Text) with any questions or concerns. MENT SETTER HELPER * Alma Rosa Barclay, PT - 05/18/2024 2:34 PM CST Physical Therapy Treatment Summary Chart review completed. Nursing consented for PT. Explained purpose of PT and patient consented to participate in therapy. RECOMMENDATIONS/PLAN: PT Discharge Recommendations: Patient would benefit from intensive 3-hour multidisciplinary therapy This recommendation is made due to ongoing intensive PT functional needs: patient has the need for more than one skilled therapy service;motivated to participate in therapy;functional mobility is significantly below baseline;likely to return to the community at discharge with support system PPE worn by staff: gloves PPE worn by patient: gown - patient, clean;socks - clean AM-PAC Basic mobility score for this patient is Mobility Raw Score:: 10 SUBJECTIVE: I was sitting in that recliner when I first came into the hospital and I was waiting for a air mattress- that chair sits too low Patient's Goal for the Day: improve mobility Pain Assessment: Pain Assessment Pain Scale/Observation: No/denies pain Pain Rating Score #1: 0 Sedation Level: 1-Awake and alert OBJECTIVE: Cognition: Level of Consciousness-Adult: (Oriented x4) Participation: Active Participation Attention Span: Appears intact Following Commands: Follows all commands and directions without difficulty Safety Judgement: Decreased awareness of need for assistance Awareness of Errors: Decreased awareness of deficits Precautions: NWB L LE Bed Mobility: Supine to Sit: Stand By Assist;Requires Verbal Cues for Safety Sit to Supine: Stand By Assist;Requires Verbal Cues for Safety Transfers: Sit to Stand: Minimal Assistance;X 2;Requires Verbal Cues for Safety;Requires Physical Cues for Technique (Placed foot under L foot to adhere to precautions) Stand to Sit: Minimal Assistance;Requires Verbal Cues for Safety;Requires Physical Cues for Technique Bed to Chair: (pt not able to squat or stand pivot. bariatric drop armchair not available for sliding board transfer training) Transfer Device: Gait belt;Walker-Bariatric Mobility: Distance Ambulated (ft): (not able to tolerate) Weight Bearing Status-LLE: Non- Weight Bearing Balance: Sitting - Static: Good;Without Upper Extremity Support Sitting - Dynamic: Good;With One Upper Extremity Support Standing - Static: Fair -;With Both Upper Extremity's Support Activity Tolerance: requires rest periods. On RA No signs/ symptoms of distress Vital signs: Before mobility BP seated 138/75 Exercise: instr in B AP ASSESSMENT: Patient supine in NAD, PT/OT ed in L LE NWB status and positioning L LE with sit <> stand with ww. Patient requires min a x 2 with sit> stand- pt not able to maintain L LE to achieve standing- once standing with ww he is able to demonstrates L LE NWB- not able to progress with weight shift/pivot to chair and maintain L LE NWB status. PT/OT recommend sliding board transfer to bariatric WC or drop arm recliner- neither is available at present time. Call light and phone in reach - supine- positioned for comfort. L LE elevated . Heels floated-pt onlow loss air mattress All lines, monitors, IV's, equipment in place and intact pre and post visit. Pt educated in PT plan of care, fall precautions, and benefits of OOB activity. RN, , notified of patient's performance/location end of session. , Please refer to the Filed Flowsheet for further details. Refer to Plan of Care for PT goals. [facility] PT [id number] If this is the last Physical Therapy visit, this note serves as the discharge summary. [facility] [id number] MENT SETTER HELPER * Fredy Choi - 05/18/2024 2:05 PM CST Occupational Therapy Treatment Summary Chart reviewed for diagnosis and medical systems review. Nursing consented for OT. Explained purpose of OT and patient consented to participate in therapy. RECOMMENDATIONS/PLAN: Pt continues to benefit from skilled OT to improve independence with activities of daily living, increase strength, endurance, range of motion and decrease pain. OT Discharge Recommendations: Patient would benefit from intensive 3-hour multidisciplinary therapy This recommendation is made due to ongoing intensive OT functional needs: ability to actively participate in intensive therapy 3 hours/day, 5 days a week;patient has the need for more than one skilled therapy service;not at baseline due to impaired ability to complete ADL's;motivated to participatein therapy;likely to return to the community at discharge with support system;functional mobility is significantly below baseline;patient and/or caregiver require specialized training;patient demonstrates a significant functional decline and would benefit from skilled therapy intervention to restore function;patient has the ability to progress and demonstrate measurable gains as a result of skilled therapy PPE worn by staff: gloves PPE worn by patient: gown - patient, clean;socks - clean AM-PAC Daily Activity score for this patient is Daily Activity Raw Score:: 14 Precautions: NWB R Foot, Fall SUBJECTIVE: Can I put any pressure on the tip of my foot? Psychosocial: Patient Behaviors: Calm;Cooperative Pt's goal for therapy: OOB OBJECTIVE: Pain Assessment: Pain Assessment Pain Scale/Observation: No/denies pain Pain Rating Score #1: 0 Sedation Level: 1-Awake and alert Cognition: Level of Consciousness-Adult: (Oriented x4) Functional Mobility: Supine to Sit: Stand By Assist;Requires Verbal Cues for Safety Sit to Supine: Stand By Assist;Requires Verbal Cues for Safety Transfers: Sit to Stand: Minimal Assistance;X 2;Requires Verbal Cues for Safety;Requires Physical Cues for Technique (Placed foot under L foot to adhere to precautions) Stand to Sit: Minimal Assistance;Requires Verbal Cues for Safety;Requires Physical Cues for Technique Transfer Device: Gait belt;Walker-Bariatric Balance: Sitting - Static: Good Standing - Static: Fair Standing - Dynamic: Fair ADL Tasks: Feeding: Complete Ray Oral Facial Hygiene: Set-up Bathing: Maximal Assistance (Adhere to precautions) Upper Body Dressing: Minimal Assistance (Adjust gown in seated) Lower Body Dressing: Total Assistance Toileting: Total Assistance Visual Motor Tracking: Able to track stimulus in all quads w/o difficulty Oxygen Therapy: $ O2 DEVICE: Room Air ASSESSMENT: Pt was in bed and in NAD upon arrival. Pt agreeable to therapy. Pt educated on precautions. Pt demonstrated impulsivity requiring verbal and physical cues and reminders to adhere to precautions. Pt sat EOB with SBA. Pt stood from EOB with wwr and min assist requiring physical cues to adhere to precautions. Pt laid in supine with SBA. Pt able to move up in bed with SBA. Pt limited this session due to decreased safety awareness and poor insight into deficits. Pt left in bed with all immediate needs met. Call light and phone in reach. All lines, monitors, IV's, equipment in place and intact pre and post visit. RN notified of patient's performance/location end of session. Educated patient/family in role of OT, precautions, and treatment plan. Please refer to the Filed Flowsheet OT Treatment for further details. Refer to care plan for goals. If this is the last Occupational Therapy visit, this serves as the discharge summary. Fredy Choi, OT/S MENT SETTER HELPER * Manpreet Stuart MD - 05/18/2024 1:17 PM CST Progress Note Admit Date: 05/13/2024 4:58 PM Hospital Day: 5 Clinical Course 43 y/o WM with h/o Morbid obesity, DM, Depression, GERD, BPH who was transferred from OSH 2/2 infected L foot ulcer and being managed for focal acute OM of the left foot s/p I&D on 05/15. Intra Op cultures grew morgnella morhanni, GBS, proteus and provetella. ID following and patient is on antibiotics. Initial BP 138/76, HR 91, Temp 100.3, lab work remarkable for WBC 22.3K, hb 8.2, Cr 1.31 , Xray showed Diffuse soft tissue swelling of the foot s/p I&D on 05/15. Started on abx, ID & podiatryfollowing. New Symptoms Patient has no new symptoms HDS. Podiatry plans to evaluate wound on to determine if additional intervention is needed Data Vitals: 05/18/24 0042 05/18/24 0413 05/18/24 0740 05/18/24 1126 BP: 105/75 119/74 136/82 132/81 Pulse: 88 86 87 88 Resp: Temp: 99.1 ??F (37.3 ??C) 99.1 ??F (37.3 ??C) 98.8 ??F (37.1 ??C) 98.3 ??F (36.8 ??C) SpO2: 95% 94% 95% Weight: Height: Intake/Output Summary (Last 24 hours) at 05/18/2024 1317 Last data filed at 05/18/2024 1257 Gross per 24 hour Intake 840 ml Output 2950 ml Net -2110 ml My review of labs, imaging, notes and other tests shows no new significant findings. Recent Labs Component Name 05/18/24 0338 05/17/24 0946 05/16/24 0309 WBC 14.5* 15.5* 21.7* HGB 7.7* 7.1* 7.3* HCT 24.7* 23.2* 23.6* PLTCOUNT 330 284 300 Recent Labs Component Name 05/18/24 0338 05/17/24 0500 05/16/24 0309 SODIUM 136 135* 133* POTASSIUM 4.7 4.2 4.2 CHLORIDE 111* 107 107 CO2 21* 20* 19* BUN 35* 37* 35* CREATININE 1.62* 1.83* 2.01* GLUCOSE 233* 207* 185* CALCIUM 8.1* 7.9* 8.0* MEDICATIONS FOR CURRENT ENCOUNTER: SCHEDULED MEDICATIONS: atorvastatin (Lipitor) tablet 40 mg, Oral, AT BEDTIME buPROPion XL 24hr (Wellbutrin-XL) tablet 150 mg, Oral, QDAY cefepime (Maxipime) 2,000 mg in 0.9% NaCl IV 50 mL IVPB, Intravenous, q8h enoxaparin (Lovenox) injection 40 mg, Subcutaneous, BID ferrous sulfate tablet 325 mg, Oral, QDAY AFTER LUNCH gabapentin (Neurontin) capsule 300 mg, Oral, TID gadoterate meglumine (Dotarem/Clariscan) injection, Intravenous, Contrast - Once insulin aspart (NovoLOG) pen 0-4 Units, Subcutaneous, AT BEDTIME insulin aspart (NovoLOG) pen 0-6 Units, Subcutaneous, TID WC insulin aspart (NovoLOG) pen 15 Units, Subcutaneous, TID WC insulin glargine (Lantus) pen 24 Units, Subcutaneous, AT BEDTIME metroNIDAZOLE (Flagyl) tablet 500 mg, Oral, q8h pantoprazole EC (Protonix) tablet 40 mg, Oral, QDAY tamsulosin (Flomax) capsule 0.4 mg, Oral, QDAY [COMPLETED] Inactivated Influenza Vaccine, Triv. (Flulaval Trivalent; 6mo+) (IIV3) 0.5 mL, Intramuscular, Immunization - Once CONTINUOUS MEDICATIONS: 0.9% NaCl flush bag, Intravenous, CONTINUOUS PRN PRN MEDICATIONS: Or Or 0.9% NaCl flush bag, Intravenous, CONTINUOUS PRN acetaminophen (Tylenol) tablet 650 mg, Oral, q6h PRN benzonatate (Tessalon) capsule 100 mg, Oral, TID PRN cyclobenzaprine (Flexeril) tablet 5 mg, Oral, TID PRN dextrose 10 % IV bolus, Intravenous, PRN dextrose 10 % IV bolus, Intravenous, PRN glucagon (Glucagen) injection 1 mg, Subcutaneous, PRN glucose (Diabetic Use) oral gel, Oral, PRN HYDROcodone-acetaminophen (Opal) 5-325 MG tablet 1 tablet, Oral, q4h PRN ondansetron (Zofran) injection 4 mg, Intravenous, q6h PRN Exam General appearance: alert, cooperative, no distress Heart: regular rhythm, normal S1 and S2, without murmurs, rubs or gallops Lungs: breath sounds normal and symmetric; no rales or wheezes Abdomen: soft without mass, non-tender, with normal bowel sounds Extremities: no clubbing, cyanosis or edema AYANNA; L foot wrapped with clean dressing Assessment and Plan # Sepsis 2/2 infected L diabetic foot ulcer (POA) -s/p Excisional Debridement of left foot wound skin on 05/15, f/u intra cx & pathology -Intra op Culture yielded morgnella morhanni, GBS, proteus. On cefepime, flagyl, ID following. -Repeat MRI negative for abscess, MONO WNL -Per podiatry, patient may need additional resection including a partial calcanectomy, left foot, and possibly more proximal amputation. # CHRISTIE -likely multifactorial from sepsis VS infection related GN Vs prerenal -Renal USS showed no evidence of hydronephrosis or medical renal disease, Fena < 1% -nephrology following. Off IVF. Encouraged oral intake -hold home ARB, continue Flomax # Anemia of chronic dx, POA -Hb stable, monitor h/h & transfuse PRBC if < 7 # DM, POA == BG elevated, Increase lantus to 24U, novolog 15 u, Continue SSI, diabetic diet -A1c 6.6% # GERD, POA == Continue PPI # Depression, POA == Continue Wellbutrin # BPH, POA == Continue Flomax Obesity -[employer] Worker following DVT prophylaxis :Lovenox Dispo: [facility] Manpreet Stuart M.D [facility]. Internal Medicine MENT SETTER HELPER * Kimberly Dietz V., PharmD - 05/18/2024 12:49 PM CST Images from the original note were not included. Pharmacy Home Medication History TRANSITIONS OF CARE Information Obtained from (include 2 sources unless using facility list): Pharmacy Refill history Medications confirmed with patient at bedside --patient information spotty. He did have Rx on phone, but admitted old list. Allergies: Not assessed Medications Added: Mountjaro 5 mg subq q7 Amlodipine 5 mg daily?-Rx filled 03/16/24- 30 day supply. Patient did not recognize drug and he did not have bottle\ Vitamin D 50,000 units q 7 day Lispro, either 5 unit to 10 units TID wm. Metformin 500 mg BID Bupropion SR 150 mg BID Medications Removed (specify reason removed for each medication): Famotidine 40 mg q day Cholecalciferol Bupropion XR 150 mg q day Calcium daily Trulicity Medications Modified: Lantus 20 unit q HS-patient certain of this Rx Furosemide 20 mg-patient says takes daily, Rx bottle every other day Of Note (discrepancies in fill history, details of warfarin management, patient concerns, refills needed or other relevant information): Patient adherence in question for the following medications: patient says he takes his meds. He hasmultiple Rx bottles with him with meds in them. Patient has been in hospital for awhile. Possible compliance issues. Prior to Admission Medications Prescriptions Last Dose Informant Patient Reported? Taking? Alcohol Swabs (Alcohol Prep) PADS Yes No Cholecalciferol 1.25 MG (15339 UT) Not Taking Yes No Sig: Take 50,000 Units by mouth Two times a week Patient not taking: Reported on 05/18/2024 Lancets (ONETOUCH DELICA PLUS 33G EXTRA FINE LANCET) Yes No Lantus SoloStar pen Yes No Sig: Inject 20 (twenty) Units subcutaneously at bedtime TRUEplus Pen Rentz 31G X 5 MM needle Yes No Trulicity 1.5 MG/0.5ML injection Not Taking Yes No Patient not taking: Reported on 05/18/2024 acetaminophen (Tylenol) 500 MG tablet Yes No Sig: Take 1 (one) tablet by mouth every 6 hours as needed amLODIPine (Norvasc) 5 MG tablet Unknown Yes Yes Sig: Take 1 (one) tablet by mouth once daily atorvastatin (Lipitor) 20 MG tablet Yes No Sig: Take 1 (one) tablet by mouth at bedtime buPROPion SR 12hr (Wellbutrin-SR) 150 MG tablet Yes Yes Sig: Take 1 (one) tablet by mouth 2 times daily buPROPion XL 24hr (Wellbutrin-XL) 150 MG tablet Not Taking No No Sig: Take 1 (one) tablet by mouth once daily Patient not taking: Reported on 05/18/2024 calcium carbonate (Os-Wilfredo 500) 1250 (500 Ca) MG tablet Not Taking Yes No Sig: Take 1 (one) tablet by mouth once daily Patient not taking: Reported on 05/18/2024 cephalexin (Keflex) 500 MG capsule Yes No Patient not taking: Reported on 10/08/2023 famotidine (Pepcid) 40 MG tablet Not Taking Yes No Sig: Take 1 (one) tablet by mouth at bedtime Patient not taking: Reported on 05/18/2024 ferrous sulfate 325 (65 FE) MG tablet Yes No Sig: Take 1 (one) tablet by mouth daily with breakfast furosemide (Lasix) 20 MG tablet Unknown Yes No Sig: Take 1 (one) tablet by mouth once daily gabapentin (Neurontin) 300 MG capsule No No Sig: Take 1 (one) capsule by mouth 3 times daily insulin lispro (HumaLOG;ADMelog) 100 UNIT/ML pen Yes No Sig: Inject 10 (ten) Units subcutaneously 3 times daily before meals losartan (Cozaar) 25 MG tablet Yes No Sig: Take 1 (one) tablet by mouth once daily metFORMIN (Glucophage) 1000 MG tablet Not Taking Yes No Sig: Take 0.5 (one-half) tablet by mouth 2 times daily Patient not taking: Reported on 05/18/2024 metFORMIN (Glucophage) 500 MG tablet Yes Yes Sig: Take 1 (one) tablet by mouth 2 times daily with morning and evening meal oyster shell calcium 500 MG tablet Not Taking Yes No Patient not taking: Reported on 05/18/2024 pantoprazole EC (Protonix) 40 MG tablet Yes No tamsulosin (Flomax) 0.4 MG capsule No No Sig: Take 1 (one) capsule by mouth once daily At the same time every day after a meal. tirzepatide (Mounjaro) 5 MG/0.5ML injection Yes Yes Sig: Inject 5 (five) mg subcutaneously every 7 days vitamin D, ergocalciferol, (Drisdol) 1.25 MG (81475 UT) capsule Not Taking Yes No Patient not taking: Reported on 05/18/2024 vitamin D, ergocalciferol, (Drisdol) 1.25 MG (20668 UT) capsule Yes Yes Sig: Take 1 (one) capsule by mouth every 7 days Takes on thursday Facility-Administered Medications: None ASSESSMENT AND PLAN The [facility] OPERATOR medication list has been updated and reflects the changes noted above. Kimberly Dietz, Franco 05/18/2024 MENT SETTER HELPER * Katerina Weaver DO - 05/18/2024 11:32 AM CST I have seen and examined the patient with the resident and I agree with the findings and plan of care as documented by the resident. In addition: Can discontinue fluids today and monitor improvement of renal function. Date of Service: 05/18/2024 Katerina Weaver DO Renal Follow-Up Note Name: Rene Hyatt Age: [age] year old Race: Sex: male Patient's Primary Care Physician: Nguyễn Bingham MD Patient's Attending Physician: Manpreet Stuart MD Admit Date: 05/13/2024 4:58 PM Hospital Day: 5 Reason for visit: Foot wound New Symptoms Patient is seen lying in bed, completing 100% of meals, no new complaints. Her still having some left foot pain, no issues with urine output Exam: Vitals: 05/18/24 0042 05/18/24 0413 05/18/24 0740 05/18/24 1126 BP: 105/75 119/74 136/82 132/81 Pulse: 88 86 87 88 Resp: Temp: 99.1 ??F (37.3 ??C) 99.1 ??F (37.3 ??C) 98.8 ??F (37.1 ??C) 98.3 ??F (36.8 ??C) SpO2: 95% 94% 95% Weight: Height: General appearance: alert, cooperative, no distress, obese Head: normocephalic, without trauma Neck: range of motion is intact, Lungs: breath sounds normal and symmetric; Heart: regular rhythm, normal S1 and S2, Abdomen: soft without mass, non-tender, Extremities: left lower extremity wound and edema with dressing clean and dry Neurologic: mental status normal; alert and oriented X 3; Laboratory Data Recent Labs Component Name 05/18/24 0338 05/17/24 0946 05/16/24 0309 WBC 14.5* 15.5* 21.7* HGB 7.7* 7.1* 7.3* HCT 24.7* 23.2* 23.6* PLTCOUNT 330 284 300 Recent Labs Component Name 05/18/24 0338 05/17/24 0500 05/16/24 0309 SODIUM 136 135* 133* POTASSIUM 4.7 4.2 4.2 CHLORIDE 111* 107 107 CO2 21* 20* 19* BUN 35* 37* 35* CREATININE 1.62* 1.83* 2.01* GLUCOSE 233* 207* 185* CALCIUM 8.1* 7.9* 8.0* No results for input(s): MAGMGDL in the last 93417 hours. Recent Labs Component Name 05/18/24 0338 05/16/24 0309 05/15/24 0013 PHOS 3.3 4.5 3.3 Glucose Bedside (mg/dL): 197 mg/dL (05/18/24 0740) Home Medications Medications Prior to Admission Medication Sig Dispense Refill acetaminophen (Tylenol) 500 MG tablet Take 1 (one) tablet by mouth every 6 hours as needed Alcohol Swabs (Alcohol Prep) PADS atorvastatin (Lipitor) 20 MG tablet buPROPion XL 24hr (Wellbutrin-XL) 150 MG tablet Take 1 (one) tablet by mouth once daily 90 tablet 4 calcium carbonate (Os-Wilfredo 500) 1250 (500 Ca) MG tablet Take 1 (one) tablet by mouth once daily cephalexin (Keflex) 500 MG capsule (Patient not taking: Reported on 10/08/2023) Cholecalciferol 1.25 MG (04464 UT) Take 50,000 Units by mouth Two times a week famotidine (Pepcid) 40 MG tablet Take 1 (one) tablet by mouth at bedtime ferrous sulfate 325 (65 FE) MG tablet furosemide (Lasix) 20 MG tablet gabapentin (Neurontin) 300 MG capsule Take 1 (one) capsule by mouth 3 times daily 270 capsule 3 insulin lispro (HumaLOG;ADMelog) 100 UNIT/ML pen Inject 10 (ten) Units subcutaneously 3 times dailybefore meals Lancets (ONETOUCH DELICA PLUS 33G EXTRA FINE LANCET) Lantus SoloStar pen losartan (Cozaar) 25 MG tablet metFORMIN (Glucophage) 1000 MG tablet Take 0.5 (one-half) tablet by mouth 2 times daily oyster shell calcium 500 MG tablet pantoprazole EC (Protonix) 40 MG tablet tamsulosin (Flomax) 0.4 MG capsule Take 1 (one) capsule by mouth once daily At the same time every day after a meal. 90 capsule 4 TRUEplus Pen Rentz 31G X 5 MM needle Trulicity 1.5 MG/0.5ML injection vitamin D, ergocalciferol, (Drisdol) 1.25 MG (68313 UT) capsule Intake/Output Summary (Last 24 hours) at 05/18/2024 1136 Last data filed at 05/18/2024 0956 Gross per 24 hour Intake 840 ml Output 3550 ml Net -2710 ml Medications atorvastatin (Lipitor) tablet 40 mg, Oral, AT BEDTIME buPROPion XL 24hr (Wellbutrin-XL) tablet 150 mg, Oral, QDAY cefepime (Maxipime) 2,000 mg in 0.9% NaCl IV 50 mL IVPB, Intravenous, q8h enoxaparin (Lovenox) injection 40 mg, Subcutaneous, BID ferrous sulfate tablet 325 mg, Oral, QDAY AFTER LUNCH gabapentin (Neurontin) capsule 300 mg, Oral, TID gadoterate meglumine (Dotarem/Clariscan) injection, Intravenous, Contrast - Once insulin aspart (NovoLOG) pen 0-4 Units, Subcutaneous, AT BEDTIME insulin aspart (NovoLOG) pen 0-6 Units, Subcutaneous, TID WC insulin aspart (NovoLOG) pen 15 Units, Subcutaneous, TID WC insulin glargine (Lantus) pen 24 Units, Subcutaneous, AT BEDTIME metroNIDAZOLE (Flagyl) tablet 500 mg, Oral, q8h pantoprazole EC (Protonix) tablet 40 mg, Oral, QDAY tamsulosin (Flomax) capsule 0.4 mg, Oral, QDAY [COMPLETED] Inactivated Influenza Vaccine, Triv. (Flulaval Trivalent; 6mo+) (IIV3) 0.5 mL, Intramuscular, Immunization - Once 0.9% NaCl flush bag, Intravenous, CONTINUOUS PRN Or Or 0.9% NaCl flush bag, Intravenous, CONTINUOUS PRN acetaminophen (Tylenol) tablet 650 mg, Oral, q6h PRN benzonatate (Tessalon) capsule 100 mg, Oral, TID PRN cyclobenzaprine (Flexeril) tablet 5 mg, Oral, TID PRN dextrose 10 % IV bolus, Intravenous, PRN dextrose 10 % IV bolus, Intravenous, PRN glucagon (Glucagen) injection 1 mg, Subcutaneous, PRN glucose (Diabetic Use) oral gel, Oral, PRN HYDROcodone-acetaminophen (Opal) 5-325 MG tablet 1 tablet, Oral, q4h PRN ondansetron (Zofran) injection 4 mg, Intravenous, q6h PRN Input /Output: Intake/Output Summary (Last 24 hours) at 05/18/2024 1136 Last data filed at 05/18/2024 0956 Gross per 24 hour Intake 840 ml Output 3550 ml Net -2710 ml Impression &Recommendations: CHRISTIE on CKD1 CKD likely 2/2 diabetic nephropathy with microabuminuria. Baseline in December 2023 was 0.79. Follows up with nephrology (Dr Plaza) outpatient for proteinuria. Workup 01/01/2024- ELOISA - neg, Dsdna- neg, C3, C4 neg, TAMY unremarkable, UA with microabuminuria of 1800mgm CHRISTIE Likely secondary to ATN from sepsis from left foot infection, versus infection related GN vs volume depletion ( initial urine sodium <20) in the setting of RAAS blockade ( on losartan at home). Protein/cr ratio 0.71gm Creatinine improved with IV hydration Plan Off IV fluids, encouraged p.o. 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 Monitor urine output, renal function Avoid nephrotoxins and hypotension Bladder scan as needed, continue Flomax Hypertension Hold home losartan, resume on discharge Monitor blood pressure, avoid hypotension Anemia - likely multifactorial with inflammation and nutritional - monitor CBC and transfuse if hgb <[address] Meg Richardson MD PGY-3 Internal Medicine [facility] MENT SETTER HELPER * Josephine Nation RN - 05/18/2024 11:25 AM CST Problem: Fall Risk Goal: Fall risk and fall related injury risk are minimized (interventions related to the fall risk can be found in the flowsheet documentation) Outcome: Progressing Problem: Pain/Discomfort Goal: Patient exhibits reduced pain/discomfort as evidenced by pain scores Outcome: Progressing Goal: Patient uses pharmacological and non-pharmacological pain management strategies. Outcome: Progressing Goal: Patient verbalizes acceptable level of pain relief and ability to engage in desired activity. Outcome: Progressing Problem: Nutrient: Increased nutrient needs (specify) Goal: Total intake will meet estimated nutrient needs Outcome: Progressing Problem: Hematologic - Adult Goal: Maintains hematologic stability Description: INTERVENTIONS: Outcome: Progressing Problem: Skin/Tissue Integrity - Adult Goal: Skin integrity remains intact Description: INTERVENTIONS: Outcome: Progressing Goal: Incisions, wounds, or drain sites healing without S/S of infection Description: INFECTIONS: Outcome: Progressing Goal: Oral mucous membranes remain intact Description: INTERVENTIONS: Outcome: Progressing MENT SETTER HELPER * Sohan Ramirez LMSW - 05/18/2024 11:21 AM CST New Facility Referral Follow Up Social Work Daily Progress Level of Care (SNF/Medicaid NH/Rehab/Fire Extinguisher Sprinkler Inspector Care/LTACH): AR vs SNF DC Barrier: Cannot do Q8 MUST be Q12 for IV ABX Poidatry review wound on Needs Picc line Special Needs: cefepime (Maxipime) 2,000 mg in 0.9% NaCl IV 50 mL IVPB Q8 (NEEDS TO BE CHANGED TO Q12) Service Provider Request Status Selected Services Address Phone Fax Patient Preferred [facility] Accepted -- [address] [place] [id number] [phone] -- [facility] -- [address] [facility] [address] -- Payer/Plan Subscriber Name Rel Member # Group # [employer] * RENE HYATT Self [id number] [address] Monitoring of facility responses: 05/18/2024 11:21 AM SW spoke with Admission Jolly ([phone]); beds open only at [facility]. They can only do Q12 for IV ABX; Extended Emergency Contact Information Primary Emergency Contact: CLARA HYATT Relation: Mother Comments/changes: Social Work Name: Sohan Ramirez LEATHER PIECE INSPECTOR, [facility] Phone: Desk: [phone]; Ascom: [phone] MENT SETTER HELPER * Christel Barcenas RN - 05/18/2024 11:09 AM CST Care Coordination Progress Note Expected Discharge Date: 05/20/2024 Discharge Plan: AR vs SNF for back up plan. pt has 2 accepting facilities in [place]. SW followingfor placement if AR is denied. Barriers: debridement of L foot ulcer 05/15. podiatry following and final plan for further intervention? 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 Family Support (Name and Phone): Extended Emergency Contact Information Primary Emergency Contact: CLARA HYATT Relation: Mother Transportation at Discharge: (cab or ambulance): READMISSION RISK SCORE is 14 at 11:33 AM 05/18/2024.: Name: Christel Barcenas RN Case Manager MENT SETTER HELPER * Hattie Liao MD - 05/18/2024 10:41 AM CST Infectious Diseases Consult Note Patient's Primary Care Physician: Nguyễn Bingham MD Reason for Consultation: foot ulcer Referring Physcian: No admitting provider for patient encounter. Name: Rene Hyatt Age: [age] year old 4 Chief Complaint/History of Present Illness Resting Objective: Review of Systems General: no fatigue/fever/chills Skin: no rashes/lesions Respiratory: no cough/sob Cardiovascular: no cp/palpitations Gastrointestinal: no nausea/diarrhea Genitourinary: no dysuria/hematuria Musculoskeletal: Left foot pain Exam Vitals: 05/17/24200905/18/24 0042 05/18/24 0413 05/18/24 0740 BP: 127/78 105/75 119/74 136/82 Pulse: 85 88 86 87 Resp: 20 16 18 Temp: 98.5 ??F (36.9 ??C) 99.1 ??F (37.3 ??C) 99.1 ??F (37.3 ??C) 98.8 ??F (37.1 ??C) SpO2: 95% 95% 94% 95% Weight: Height: Temp (30hrs) Max:99.1 ??F (37.3 ??C) General appearance: Resting Lungs: clear to auscultation bilaterally Heart: regular rate and rhythm, S1, S2 normal, no murmur, Abdomen: soft, non-tender; bowel sounds normal Extremities: no edema Left foot wrapped Skin: no rash Lines: MEDICATIONS FOR CURRENT ENCOUNTER: SCHEDULED MEDICATIONS: atorvastatin (Lipitor) tablet 40 mg, Oral, AT BEDTIME buPROPion XL 24hr (Wellbutrin-XL) tablet 150 mg, Oral, QDAY cefepime (Maxipime) 2,000 mg in 0.9% NaCl IV 50 mL IVPB, Intravenous, q8h enoxaparin (Lovenox) injection 40 mg, Subcutaneous, BID ferrous sulfate tablet 325 mg, Oral, QDAY AFTER LUNCH gabapentin (Neurontin) capsule 300 mg, Oral, TID gadoterate meglumine (Dotarem/Clariscan) injection, Intravenous, Contrast - Once insulin aspart (NovoLOG) pen 0-4 Units, Subcutaneous, AT BEDTIME insulin aspart (NovoLOG) pen 0-6 Units, Subcutaneous, TID WC insulin aspart (NovoLOG) pen 15 Units, Subcutaneous, TID WC insulin glargine (Lantus) pen 24 Units, Subcutaneous, AT BEDTIME metroNIDAZOLE (Flagyl) tablet 500 mg, Oral, q8h pantoprazole EC (Protonix) tablet 40 mg, Oral, QDAY tamsulosin (Flomax) capsule 0.4 mg, Oral, QDAY [COMPLETED] Inactivated Influenza Vaccine, Triv. (Flulaval Trivalent; 6mo+) (IIV3) 0.5 mL, Intramuscular, Immunization - Once Data Recent Labs Component Name 05/18/2433705/17/24 0946 05/16/24 0309 WBC 14.5* 15.5* 21.7* HGB 7.7* 7.1* 7.3* HCT 24.7* 23.2* 23.6* PLTCOUNT 330 284 300 Recent Labs Component Name 05/18/248 05/17/24 0500 05/16/24 0309 SODIUM 136 135* 133* POTASSIUM 4.7 4.2 4.2 CHLORIDE 111* 107 107 CO2 21* 20* 19* BUN 35* 37* 35* CREATININE 1.62* 1.83* 2.01* GLUCOSE 233* 207* 185* CALCIUM 8.1* 7.9* 8.0* Recent Labs Component Name 05/18/24 0338 05/16/24 0309 05/15/24 0013 05/14/24 0403 09/17/23 1247 ALBUMIN 1.5* 1.4* 1.6* - - ALKPHOS - - - - 84 ALT - - - - 11 AST - - - - 12 - = values in this interval not displayed. No results for input(s): CDIFFTOXINAB in the last 40918 hours. No results for input(s): SEDRATE in the last 89409 hours. No results for input(s): CRP in the last 12807 hours. Recent Labs Component Name 05/14/24 0403 CK 136 . Recent Labs Component Name 05/16/24 0904 05/14/24 1706 VANCOPEAK 40.3* 25.0 Recent Labs Component Name 05/15/24 0013 09/17/23 1247 HGBA1C 6.6* 6.2* Recent Labs Component Name 05/16/24 1257 COLORUA Yellow CLARITYUA Turbid* SPECGRAVUA 1.016 PHUA 5.5 PROTEINUA 1+* BLOODUA 2+* LEUKOCYTEUA 75 MIKKI/uL* NITRITEUA Negative GLUCOSEUA Normal KETONEUA Trace* BILIRUBINUA Negative UROBILINUA Normal WBCUA 6-10* RBCUA None Seen BACTUA None Seen Microbiology Radiology Assessment --Ulcer of left foot? Om 05/14 cx swab - morganella Xray- diffuse gas I hindfoot Mri -mild osteo of the lateral calcaneal tubercle Cultures with Morganella and group B strep Debridement to bone level 05/15 Path with acute osteomyelitis Cx GBS, Morganella, proteus -- christie --Dm--uncontrolled --htn --anemia --anxiety, depression -- bph -- mo --non compliance Plan - on cefepime, po flagyl, - podiatry on case, - monitoring labs - f.u bcx , wound cx - local care of wounds Will need PICC line and 6 weeks of antibiotics Hattie Liao MD MENT SETTER HELPER * Kang Sanders RN - 05/18/2024 1:16 AM CST Problem: Fall Risk Goal: Fall risk and fall related injury risk are minimized (interventions related to the fall risk can be found in the flowsheet documentation) Outcome: Progressing Problem: Pain/Discomfort Goal: Patient exhibits reduced pain/discomfort as evidenced by pain scores Outcome: Progressing Goal: Patient uses pharmacological and non-pharmacological pain management strategies. Outcome: Progressing Goal: Patient verbalizes acceptable level of pain relief and ability to engage in desired activity. Outcome: Progressing Problem: Nutrient: Increased nutrient needs (specify) Goal: Total intake will meet estimated nutrient needs Outcome: Progressing Problem: Hematologic - Adult Goal: Maintains hematologic stability Description: INTERVENTIONS: Outcome: Progressing Problem: Skin/Tissue Integrity - Adult Goal: Skin integrity remains intact Description: INTERVENTIONS: Outcome: Progressing Goal: Incisions, wounds, or drain sites healing without S/S of infection Description: INFECTIONS: Outcome: Progressing Goal: Oral mucous membranes remain intact Description: INTERVENTIONS: Outcome: Progressing MENT SETTER HELPER * Abby Quinn DPM - 05/17/2024 8:12 PM CST Admit Date: 05/13/2024 4:58 PM Hospital Day: 4 Name: Rene Hyatt Date: 05/17/2024 Medical Doctor: Nguyễn Bingham MD CC: Patient is seen at bedside for follow up for infection, and open ulceration left foot. HPI: Patient is S/P Surgical debridement of left foot wound with biopsy. Patient underwent surgical debridement on 05/15/24. Patient denies n/v/f/c, sob this am. The wound has been treated with Cefepime, and metronidazole, General: Alert and oriented x 3 Family History: No family history on file. Data Vitals: 05/17/24 1419 05/17/24 1425 05/17/24 1436 05/17/24 1656 BP: 130/78 127/80 142/80 Pulse: 89 92 85 84 Resp: Temp: 98.1 ??F (36.7 ??C) SpO2: 96% 95% 96% 95% Weight: Height: Temp (30hrs) Max:99.4 ??F (37.4 ??C) Filed Wts: 05/13/24 2210 Weight: (!) 183.9 kg (405 lb 6.4 oz) MEDICATIONS FOR CURRENT ENCOUNTER: SCHEDULED MEDICATIONS: atorvastatin (Lipitor) tablet 40 mg, Oral, AT BEDTIME buPROPion XL 24hr (Wellbutrin-XL) tablet 150 mg, Oral, QDAY cefepime (Maxipime) 2,000 mg in 0.9% NaCl IV 50 mL IVPB, Intravenous, q8h enoxaparin (Lovenox) injection 40 mg, Subcutaneous, BID ferrous sulfate tablet 325 mg, Oral, QDAY AFTER LUNCH gabapentin (Neurontin) capsule 300 mg, Oral, TID gadoterate meglumine (Dotarem/Clariscan) injection, Intravenous, Contrast - Once insulin aspart (NovoLOG) pen 0-4 Units, Subcutaneous, AT BEDTIME insulin aspart (NovoLOG) pen 0-6 Units, Subcutaneous, TID WC insulin aspart (NovoLOG) pen 10 Units, Subcutaneous, TID WC insulin glargine (Lantus) pen 24 Units, Subcutaneous, AT BEDTIME metroNIDAZOLE (Flagyl) tablet 500 mg, Oral, q8h pantoprazole EC (Protonix) tablet 40 mg, Oral, QDAY tamsulosin (Flomax) capsule 0.4 mg, Oral, QDAY [START ON 05/18/2024] Inactivated Influenza Vaccine, Triv. (Flulaval Trivalent; 6mo+) (IIV3) 0.5 mL, Intramuscular, Immunization - Once CONTINUOUS MEDICATIONS: 0.9% NaCl flush bag, Intravenous, CONTINUOUS PRN 0.9% NaCl infusion, Intravenous, Continuous PRN MEDICATIONS: Or Or 0.9% NaCl flush bag, Intravenous, CONTINUOUS PRN acetaminophen (Tylenol) tablet 650 mg, Oral, q6h PRN benzonatate (Tessalon) capsule 100 mg, Oral, TID PRN cyclobenzaprine (Flexeril) tablet 5 mg, Oral, TID PRN dextrose 10 % IV bolus, Intravenous, PRN dextrose 10 % IV bolus, Intravenous, PRN glucagon (Glucagen) injection 1 mg, Subcutaneous, PRN glucose (Diabetic Use) oral gel, Oral, PRN HYDROcodone-acetaminophen (Opal) 5-325 MG tablet 1 tablet, Oral, q4h PRN ondansetron (Zofran) injection 4 mg, Intravenous, q6h PRN Recent Labs Component Name 05/17/24 0946 05/16/24 0309 05/15/24 0013 WBC 15.5* 21.7* 25.1* HGB 7.1* 7.3* 7.7* HCT 23.2* 23.6* 24.6* PLTCOUNT 284 300 334 Recent Labs Component Name 05/17/24 0500 05/16/24 0309 05/13/24 1830 09/17/23 1247 SODIUM 135* 133* - - POTASSIUM 4.2 4.2 - 3.8 CHLORIDE 107 107 - - CO2 20* 19* - 26 BUN 37* 35* - 18 CREATININE 1.83* 2.01* - 0.75 GLUCOSE 207* 185* - 119* CALCIUM 7.9* 8.0* - 9.6 ALBUMIN - 1.4* - - ALKPHOS - - - 84 ALT - - - 11 AST - - - 12 EGFR 46* 41* - >90 - = values in this interval not displayed. No results for input(s): INR in the last 51086 hours. No results for input(s): PT in the last 84759 hours. No results for input(s): PTT in the last 88594 hours. GENERAL: Conversant; NAD PSYCHE: Alert and oriented to person, place, and time. Appropriate affect noted. EYES: PERRLA; No scleral icterus. Conjuctiva moist NECK: Supple; no masses. Trachea midline. No thyromegaly Vitals Patient Vitals for the past 24 hrs: Temp Pulse Resp BP SpO2 05/16/24 1818 99.4 ??F (37.4 ??C) 85 17 114/68 93 % 05/16/24 1105 98.7 ??F (37.1 ??C) 91 18 97/61 94 % 05/16/24 0747 100 ??F (37.8 ??C) 91 17 118/70 97 % 05/16/24 0414 99.7 ??F (37.6 ??C) 94 16 110/66 98 % 05/16/24 0012 (!) 100.4 ??F (38 ??C) 95 16 120/72 94 % 05/15/24 1941 99.8 ??F (37.7 ??C) 103 20 147/82 95 % Lower extremity VASCULAR: Dorsalis pedis pulses: Right 0/4 Left 0/4 Posterior tibial pulses: Right 0/4 Left 0/4 Patient shows: decreased hair growth thin atrophic skin No edema noted bilaterally LYMPHATICS: Lymphedema is noted bilaterally. No painful popliteal or inguinal nodes DERMATOLOGIC: Skin color and texture are: Ulceration located: Left foot There is a large open ulceration noted to the plantar aspect of left foot with granular wound base and < 10% fibrin, necrosis or slough noted today. There is exposed tendon and bone noted. There continues to be franchesca wound erythema noted extending proximally to left calf. There is moderate serousdrainage noted. There is no malodor noted. Size 11.0cmx 15.0cm x 2.5cm NEUROLOGIC: Protective Sensation is absent with 5.07 SWMF bilaterally at toes and MPJ levels Patient can not distinguish between sharp and dull. Proprioception is intact. MUSCULO: Manual Muscle strength is diminsihed in the anterior and posterior muscle groups bilateral feet andlower limbs. Blood Culture: Wound Culture: Arterial Doppler: Order Xray: COMPARISON: 03/06/2023 FINDINGS: No acute fracture or dislocation identified. Accessory ossicle at the base of the 5th metatarsal. No osseous cortical erosions. No radiopaque foreign body. Soft tissue gas within the hindfoot. Diffuse soft tissue swelling of the foot. IMPRESSION: Diffuse soft tissue swelling of the foot. Soft tissue gas within the hindfoot. No acute osseous abnormality. MRI: Ordered Culture Bone calcaneus Left 05/15/24 Collected 05/15/2024 16:33 Status: Preliminary result Visible to patient: No (not released) Dx: Left foot infection Specimen Information: Foot; Microbiology 0 Result Notes Culture Heavy Morganella morganii Critical Heavy Streptococcus agalactiae (Group B) Critical Rare Proteus vulgaris Critical Susceptibility testing of penicillin, other beta-lactam antibiotics, and vancomycin is not necessary for beta-hemolytic streptococci groups A,B,C and G because resistant strains have not been recognized. Surgical Description: Calcaneus Bone Left Foot Culture wound Left foot 05/15/24 Collected 05/15/2024 16:34 Status: Preliminary result Visible to patient: No (not released) Dx: Left foot infection Specimen Information: Foot; Microbiology 0 Result Notes Culture Rare Streptococcus agalactiae (Group B) Critical Susceptibility testing of penicillin, other beta-lactam antibiotics, and vancomycin is not necessary for beta-hemolytic streptococci groups A,B,C and G because resistant strains have not been recognized. Surgical Description: Left Foot Pathology: Biopsy taken 05/15/24. Awaiting results. Patient Glucose Bedside (mg/dL) in the past 24 hrs: 05/16/242031, Glucose Bedside (mg/dL):317 mg/dL 05/17/24 0754, Glucose Bedside (mg/dL):254 mg/dL 05/17/24 1159, Glucose Bedside (mg/dL):236 mg/dL 05/17/24 1656, Glucose Bedside (mg/dL):236 mg/dL ASSESSEMENT: 1. Surgical Debridement of left foot wound including bone biopsy 2. Infection left foot 3. Osteomyelitis left foot 4. Diabetic neuropathic ulceration - 5. PVD 6. Neuropathy 7. Diabetes Infection left foot/ Osteomyelitis left foot - Cefepime (Maxipime) 2,000mg every 8 hours - Metronidazole 500mg every 8 hours - Vancomycin 1500mg every 12 hours S/P Surgical Debridement of left foot wound including bone biopsy Diabetic neuropathic ulceration left foot - Dressing instructions: Cleanse left foot wound with vashe. Blot dry. Apply betadine soaked gauze to wound base. Cover with secondary dry dressings including 4x4s, abd pad, kerlix and dee bandage. Change dressing daily. - Weight bearing: Ambulate non weight bearing to left foot with walker. Neuropathy/ Type II Diabetes - Monitor blood glucose - Internal medicine following PLAN: Patient is S/P Surgical debridement of left foot wound with biopsy. The wound is stable today. There is no sign of failing tissue. There is no necrosis noted. There is no malodor noted. Will Monitor wound to to determine if additional debridement is necessary. Order MRI left lower limb for abscess. Patients infection is severe but clinically improved. Patient is at high risk for limb loss. Thank you for asking [facility], Dr. Abby Quinn to participate in the care of your patient. Please call [phone] (Office), (Exchange), (Cell #, Call/ Text) with any questions or concerns. MENT SETTER HELPER * Alma Rosa Barclay, PT - 05/17/2024 3:33 PM CST Physical Therapy Evaluation. PT orders received, chart reviewed for diagnosis and medical systems review.. Nursing consents for PT. Explained purpose of PT and patient consented to participate in therapy. RECOMMENDATIONS/PLAN: Continue skilled PT in acute care to maximize function and regain PLOF. PT Discharge Recommendations: Patient would benefit from intensive 3-hour multidisciplinary therapy This recommendation is made due to ongoing intensive PT functional needs: patient has the need for more than one skilled therapy service;motivated to participate in therapy;functional mobility is significantly below baseline;likely to return to the community at discharge with support system AM-PAC Basic mobility score for this patient is Mobility Raw Score:: 10 PMH: No past medical history on file. Dx: (L97.528) Ulcer of left foot with other severity ([facility]) (primary encounter diagnosis) (N17.9) CHRISTIE (acute kidney injury) ([facility]) (L08.9) Left foot infection SUBJECTIVE: I was walking in the house without a walker or cane. I will do whatever I can to go home. Home Situation: Home Situation Type of Residence: Private Residence Living arrangement: Family Members (Lives with mother, who is currently in [facility]) Home Structure: One Story;Basement Bathroom : Tub/Shower Combo Equipment at Home: CPAP/BiPAP (Mother has a tub transfer bench) Prior Level of Functioning: Prior Level of Function Mobility: Ambulate-In Community;Ambulate-In Home Fallen Within 6 Mos: No Have Help at Home?: No help at home now Oxygen at Home: No Vision: Corrected with glasses Pain Assessment: Pain Assessment Pain Rating Score #1: 0 Patient/family stated goal: improve mobility OBJECTIVE: Cognition: Participation: Active Participation Precautions: fall ROM and Strength: Strength - Right Lower Extremity: (general weakness >=3-/5 proximally. distally 3=+/5) Strength - Left Lower Extremity: (general weakness >=3-/5 proximally. distally 3=+/5) Balance: Sitting - Static: Good;With Both Upper Extremity's Support Sitting - Dynamic: Good -;With Both Upper Extremity's Support Bed Mobility: Supine to Sit: Stand By Assist (with HOB elevated and use of side rail) Sit to Supine: Stand By Assist Transfers: Sit to Stand: (pt not able) Bed to Chair: (pt not able to squat or stand pivot. bariatric drop armchair not available for sliding board transfer training) Mobility: Distance Ambulated (ft): (pt notable) Weight Bearing Status-LLE: Non- Weight Bearing Activity Tolerance: 05/17/24 1419 05/17/24 1425 Vital Signs Pulse 89 92 BP 130/78 127/80 MAP 95 96 BP Location Right arm Right arm BP Method Automatic Automatic Patient Position Lying Sitting (EoB) ASSESSMENT: PT/OT eval. Patient supine in NAD. PT/OT ed patient in L LE NWB precaution and transfer technique bed> recliner squat/stand pivot vs sliding board. Patient progressed tosupine >sit with sba, demonstrates good sitting balance EOB, maintaining L LE NWB with sit- lateral scooting -demonstrates minimal buttocks clearance -pt not able to progress to squat pivot to recliner. Bariatric drop arm recliner not available for sliding board transfer. Patient will benefit from continued in patient rehab to progress with functional mobility. Call light and phone in reach All lines, monitors, IV's, equipment in place and intact pre and post visit. RN, , notified of patient's performance/location end of session. Pt educated in PT plan of care, fall precautions, and benefits of OOB activity. Problem list: decreased strength, decreased balance, decreased endurance, decreased ROM, decreased coordination Functional limitations: Decreased independence with ambulation/transfers, decreased safety with functional mobility. Rationale for therapy: Patient will benefit from PT to address the above issues. Refer to Plan of Care for PT goals. Please refer to Filed Flowsheet PT Evaluation for further details. If this is the last PT visit, this note serves as the discharge summary. [facility] PT [phone] MENT SETTER HELPER * Dexter Cotto, OT - 05/17/2024 2:05 PM CST Occupational Therapy Initial Evaluation Orders received. Chart reviewed for diagnosis and medical systems review. Nursing consented for OT. Explained purpose of OT and patient consented to participate in therapy. RECOMMENDATIONS/PLAN: Pt would benefit from continued OT during hospitalization in order to addressactivity tolerance, safety, and independence with self care tasks and functional mobility. Discharge OT Discharge Recommendations: Patient would benefit from intensive 3-hour multidisciplinary therapy This recommendation is made due to ongoing intensive OT functional needs: ability to actively participate in intensive therapy 3 hours/day, 5 days a week;patient has the need for more than one skilled therapy service;not at baseline due to impaired ability to complete ADL's;motivated to participatein therapy;likely to return to the community at discharge with support system;functional mobility is significantly below baseline;patient and/or caregiver require specialized training;patient demonstrates a significant functional decline and would benefit from skilled therapy intervention to restore function;patient has the ability to progress and demonstrate measurable gains as a result of skilled therapy Pt highly motivated and open to education and participation throughout session. Pt demo good potential to progress. AM-PAC Daily Activity Raw Score:: 14 ADMIT: 1. Ulcer of left foot with other severity ([facility]) 2. CHRISTIE (acute kidney injury) ([facility]) 3. Left foot infection PPE worn by staff: gloves Precautions: Fall Risk, NWB LLE, Lines SUBJECTIVE: I really want to keep my independence so that I can go back home Psychosocial: Patient Behaviors: (Calm, cooperative) Pt's goal for therapy: Regain functional independence. Occupational Profile/PLOF: Type of Residence: Private Residence Living arrangement: Family Members (Lives with mother, who is currently in [facility]) Home Structure: One Story;Basement Steps to Enter: 5 Primary Bedroom: First Floor Primary Bathroom: First Floor Bathroom : Tub/Shower Combo Equipment at Home: CPAP/BiPAP (Mother has a tub transfer bench) Mobility: Ambulate-In Community;Ambulate-In Home Fallen Within 6 Mos: No Have Help at Home?: No help at home now Oxygen at Home: No Activity at Home: Sedentary;Driving Vision: Corrected with glasses Cognition: Alert Level of Consciousness-Adult: (oriented x 4) Cognition: (Follows commands consistently, judgement appropriate) Attention Span: Appears intact Pain Assessment: Pain Assessment Pain Scale/Observation: No/denies pain RUE Assessment: AROM - Right Upper Extremity: (~75% shoulder AROM) Strength - Right Upper Extremity: (grossly 3+/5) Industrial 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 Strength: Industrial 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 Strength - Right Upper Extremity: Able to actively grasp, decreased strength LUE Assessment: AROM - Left Upper Extremity: (~75% shoulder AROM) Strength - Left Upper Extremity: (grossly 3+/5) Industrial 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 Strength: Industrial 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 Strength - Left Upper Extremity: Able to actively grasp, decreased strength: Basic ADL's: Based on observation and clinical judgement Feeding: Complete Ray Oral Facial Hygiene: Set-up (Seated) Bathing: Moderate Assistance Upper Body Dressing: Minimal Assistance (Gown) Lower Body Dressing: Total Assistance Toileting: Total Assistance Functional Mobility: Bed Mobility: Supine to Sit: Stand By Assist (HoB elevated, use of side rail) Sit to Supine: Stand By Assist;Requires Verbal Cues for Safety (with increased momentum) Transfers: Sit to Stand: (Pt able to clear buttocks ~1in off bed, not able to tolerate standing currently, NWBLLE) Bed to Chair: (pt not able to squat or stand pivot. bariatric drop armchair not available for sliding board transfer training) Balance Sitting - Static Good;With Both Upper Extremity's Support Sitting - Dynamic Good -;With Both Upper Extremity's Support Oxygen Therapy: $ O2 DEVICE: Room Air Vitals: Activity Tolerance: Requires rest breaks 05/17/24 1419 05/17/24 1425 05/17/24 1436 Vital Signs Pulse 89 92 85 BP 130/78 127/80 -- MAP 95 96 -- BP Location Right arm Right arm -- BP Method Automatic Automatic -- Patient Position Lying Sitting (EoB) Lying after activity Oxygen Therapy SpO2 96 % 95 % 96 % Pt reported feeling slightly dizzy sitting EoB. VSS. BP 127/80. Pt reported dizziness subsided withrest break. Pt denies SoB throughout session. ASSESSMENT: A co-eval was performed with Physical Therapy to optimize patient performance and outcomes as patient has poor activity tolerance, and requires assist of a second skilled clinician due to complex mobility needs. The co-treatment benefits the patient by providing quality treatments through interdisciplinary methods. Pt in bed upon OT arrival, agreeable to therapy session. Pt participated in assessment of BUE strength/ROM, functional transfers, mobility, and self care tasks with pt requiring assist levels noted above. Pt required extended time to complete all tasks d/t NWB LLE, generalized weakness, and decreased endurance/activity tolerance. Educated pt on NWB LLE. Pt verbalized and demo understanding. Educated pt on transfer training. Pt able to clear buttocks ~1in off bed while maintain NWB LLE. Bariatric drop arm recliner not currently available to complete slide board transfer to chair. Pt able to up/down bed while maintaining NWB LLE and clearing buttocks ~1in off bed. Pt required min verbal cues for safety during bed mobility and transfer training. Pt required UE support to maintain sitting balance. Pt limited by pain, decreased activity tolerance, decreased knowledge of condition, impaired balance, and generalized weakness. Pt positioned for comfort in bed at end of session with all immediate needs met as OT departs. Call light and phone in reach with bed alarm activated. All lines, monitors, IV's, equipment in place and intact pre and post visit. RNRio, notified of patient's performance/location end of session. Educated patient/family in fall prevention, role of OT, ADL assessment, functional mobility, transfers, safety, energy conservation, NWB LLE. Problem list: Decreased strength, decreased ROM, decreased endurance, decreased balance, impaired functional mobility, decreased coordination, impaired safety awareness, cognitive impairment, impaired cardiopulmonary function, decreased knowledge of condition, decreased pain tolerance, need for family/caregiver training Functional limitation: Decreased independence with transfers; decreased ability to perform ADLs, decreased UE strength, decreased safety with functional mobility. Rationale for therapy: Patient will benefit from OT to address the above issues. Patient will be seen for: ADL retraining, functional transfers, balance, endurance, exercise. Refer to Plan of Care for OT goals. Refer to filed flow sheet for further details. If this is the last Occupational Therapy visit, this serves as the discharge summary. RALEIGH Renteria/Steffi [phone] MENT SETTER HELPER * Latanya Sims, [facility] - 05/17/2024 11:56 AM CST Social Work Progress Note Discharge Plan Disposition: goal is SNF/[facility]. PT and SW sent chat to podiatry asking for WBS orders to be updated. Patient usually up at home (minimal) but still was up at home. Now NWB L leg. Therapy will workwith him as soon as orders are updated. ID continues to follow. SW went ahead today and sent preliminary SNF referrals to the following places since we know he will more than likely need some wound care and IV antib (just pending PT/OT notes): [facility]. [facility]. [address] [place] [address]. [place] [address]. -yes accepted [facility]: [phone] (f) [phone]-yes accepted [facility]: [phone] (f) [phone] [facility]. SW reached out to [facility]: [phone] (f) [phone] Spoke with Katy in the business office. Yes, his mother is there. Private pay for 15 days. I explained she's probably going to need to be there longer since he needs to go to a SNF more than likely. She said they accept [facility] for LTC but not SNF. My understanding is that some [facility] does cover SNF so I sent referrals to other places. She said that [facility] is still able to communicate so if we needed to speak with her for some reason the staff there could help get her on a phone. We will keep them posted on his d/c. For SNF auth you will need to fax [facility] at: [phone] DIPIKA checked referrals from earlier. Transportation: ambulance. [facility]. Anticipated Discharge Date: 05/17/2024 Contacts: Extended Emergency Contact Information Primary Emergency Contact: CLARA HYATT Relation: Mother *Mother cannot be contacted. She has MS and is respite at [facility]: [phone] (f) [phone] Comments: SW added on AVS, private duty info for him and for his mother, SSD info, VA assist for mom at home, and [place] local chapter for resources for mom at home. Name/Phone number: Latanya Sims LCSW , LEATHER PIECE INSPECTOR, MPH Latanya Sims, LEAD APPLIER MENT SETTER HELPER * Katerina Weaver DO - 05/17/2024 11:42 AM CST I have seen and examined the patient with the resident and I agree with the findings and plan of care as documented by the resident. In addition: Continue limited trial of IVF as patient has been increasing PO intake. Date of Service: 05/17/2024 Katerina Weaver DO Renal Follow-Up Note Name: Rene Hyatt Age: [age] year old Race: Sex: male Patient's Primary Care Physician: Nguyễn Bingham MD Patient's Attending Physician: Manpreet Stuart MD Admit Date: 05/13/2024 4:58 PM Hospital Day: 4 Reason for visit: Foot wound New Symptoms Patient was seen lying in bed, mentions appetite has improved, however not eating as much. Still having left foot pain, no new symptoms. No issues with urine output. Exam: Vitals: 05/16/24203105/16/24 2313 05/17/24 0412 05/17/24 0754 BP: 102/64 122/74 113/71 Pulse: 84 87 89 93 Resp: 18 18 18 Temp: 98.3 ??F (36.8 ??C) 98.5 ??F (36.9 ??C) 98.9 ??F (37.2 ??C) SpO2: 90% 92% 93% 92% Weight: Height: General appearance: alert, cooperative, no distress, obese Head: normocephalic, without trauma Neck: range of motion is intact, Lungs: breath sounds normal and symmetric; Heart: regular rhythm, normal S1 and S2, Abdomen: soft without mass, non-tender, Extremities: left lower extremity wound and edema with dressing clean and dry Neurologic: mental status normal; alert and oriented X 3; Laboratory Data Recent Labs Component Name 05/17/24 0946 05/16/24 0309 05/15/24 0013 WBC 15.5* 21.7* 25.1* HGB 7.1* 7.3* 7.7* HCT 23.2* 23.6* 24.6* PLTCOUNT 284 300 334 Recent Labs Component Name 05/17/24 0500 05/16/24 0309 05/15/24 0013 SODIUM 135* 133* 132* POTASSIUM 4.2 4.2 4.1 CHLORIDE 107 107 103 CO2 20* 19* 22 BUN 37* 35* 31* CREATININE 1.83* 2.01* 1.69* GLUCOSE 207* 185* 235* CALCIUM 7.9* 8.0* 8.2* No results for input(s): MAGMGDL in the last 10484 hours. Recent Labs Component Name 05/16/24 0309 05/15/24 0013 05/14/24 0403 PHOS 4.5 3.3 4.1 Glucose Bedside (mg/dL): 254 mg/dL (05/17/24 0754) Home Medications Medications Prior to Admission Medication Sig Dispense Refill acetaminophen (Tylenol) 500 MG tablet Take 1 (one) tablet by mouth every 6 hours as needed Alcohol Swabs (Alcohol Prep) PADS atorvastatin (Lipitor) 20 MG tablet buPROPion XL 24hr (Wellbutrin-XL) 150 MG tablet Take 1 (one) tablet by mouth once daily 90 tablet 4 calcium carbonate (Os-Wilfredo 500) 1250 (500 Ca) MG tablet Take 1 (one) tablet by mouth once daily cephalexin (Keflex) 500 MG capsule (Patient not taking: Reported on 10/08/2023) Cholecalciferol 1.25 MG (45673 UT) Take 50,000 Units by mouth Two times a week famotidine (Pepcid) 40 MG tablet Take 1 (one) tablet by mouth at bedtime ferrous sulfate 325 (65 FE) MG tablet furosemide (Lasix) 20 MG tablet gabapentin (Neurontin) 300 MG capsule Take 1 (one) capsule by mouth 3 times daily 270 capsule 3 insulin lispro (HumaLOG;ADMelog) 100 UNIT/ML pen Inject 10 (ten) Units subcutaneously 3 times dailybefore meals Lancets (ONETOUCH DELICA PLUS 33G EXTRA FINE LANCET) Lantus SoloStar pen losartan (Cozaar) 25 MG tablet metFORMIN (Glucophage) 1000 MG tablet Take 0.5 (one-half) tablet by mouth 2 times daily oyster shell calcium 500 MG tablet pantoprazole EC (Protonix) 40 MG tablet tamsulosin (Flomax) 0.4 MG capsule Take 1 (one) capsule by mouth once daily At the same time every day after a meal. 90 capsule 4 TRUEplus Pen Rentz 31G X 5 MM needle Trulicity 1.5 MG/0.5ML injection vitamin D, ergocalciferol, (Drisdol) 1.25 MG (37770 UT) capsule Intake/Output Summary (Last 24 hours) at 05/17/2024 1143 Last data filed at 05/17/2024 0635 Gross per 24 hour Intake 790 ml Output 1250 ml Net -460 ml Medications atorvastatin (Lipitor) tablet 40 mg, Oral, AT BEDTIME buPROPion XL 24hr (Wellbutrin-XL) tablet 150 mg, Oral, QDAY cefepime (Maxipime) 2,000 mg in 0.9% NaCl IV 50 mL IVPB, Intravenous, q8h enoxaparin (Lovenox) injection 40 mg, Subcutaneous, BID ferrous sulfate tablet 325 mg, Oral, QDAY AFTER LUNCH gabapentin (Neurontin) capsule 300 mg, Oral, TID gadoterate meglumine (Dotarem/Clariscan) injection, Intravenous, Contrast - Once insulin aspart (NovoLOG) pen 0-4 Units, Subcutaneous, AT BEDTIME insulin aspart (NovoLOG) pen 0-6 Units, Subcutaneous, TID WC insulin aspart (NovoLOG) pen 4 Units, Subcutaneous, TID WC insulin glargine (Lantus) pen 20 Units, Subcutaneous, AT BEDTIME metroNIDAZOLE (Flagyl) tablet 500 mg, Oral, q8h pantoprazole EC (Protonix) tablet 40 mg, Oral, QDAY tamsulosin (Flomax) capsule 0.4 mg, Oral, QDAY [START ON 05/18/2024] Inactivated Influenza Vaccine, Triv. (Flulaval Trivalent; 6mo+) (IIV3) 0.5 mL, Intramuscular, Immunization - Once 0.9% NaCl flush bag, Intravenous, CONTINUOUS PRN 0.9% NaCl infusion, Intravenous, Continuous Or Or 0.9% NaCl flush bag, Intravenous, CONTINUOUS PRN acetaminophen (Tylenol) tablet 650 mg, Oral, q6h PRN cyclobenzaprine (Flexeril) tablet 5 mg, Oral, TID PRN dextrose 10 % IV bolus, Intravenous, PRN dextrose 10 % IV bolus, Intravenous, PRN glucagon (Glucagen) injection 1 mg, Subcutaneous, PRN glucose (Diabetic Use) oral gel, Oral, PRN HYDROmorphone (Dilaudid) injection 0.5 mg, Intravenous, q4h PRN ondansetron (Zofran) injection 4 mg, Intravenous, q6h PRN Input /Output: Intake/Output Summary (Last 24 hours) at 05/17/2024 1143 Last data filed at 05/17/2024 0635 Gross per 24 hour Intake 790 ml Output 1250 ml Net -460 ml Impression &Recommendations: CHRISTIE on CKD1 CKD likely 2/2 diabetic nephropathy with microabuminuria. Baseline in December 2023 was 0.79. Follows up with nephrology (Dr Plaza) outpatient for proteinuria. Workup 01/01/2024- ELOISA - neg, Dsdna- neg, C3, C4 neg, TAMY unremarkable, UA with microabuminuria of 1800mgm CHRISTIE Likely secondary to ATN from sepsis from left foot infection, versus infection related GN vs volume depletion ( initial urine sodium <20) in the setting of RAAS blockade ( on losartan at home). 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 Current activity orders are patient bed bound with bathroom privileges- PT contacted Dr Quinn to clarify PT/OT and activity orders. PT/OT will initiate eval when orders and updated. Thank you [facility] PT [phone] MENT SETTER HELPER * Rio Schmitz, ARYAN - 05/17/2024 9:38 AM CST Problem: Fall Risk Goal: Fall risk and fall related injury risk are minimized (interventions related to the fall risk can be found in the flowsheet documentation) 05/17/2024 09 by Rio Schmitz RN Outcome: Progressing 05/16/20241955 by Rio Schmitz RN Outcome: Progressing Problem: Pain/Discomfort Goal: Patient exhibits reduced pain/discomfort as evidenced by pain scores 05/17/2024936 by Rio Schmitz RN Outcome: Progressing 05/16/20241955 by Rio Schmitz RN Outcome: Progressing Goal: Patient uses pharmacological and non-pharmacological pain management strategies. 05/17/2024936 by Rio Schmitz RN Outcome: Progressing 05/16/20241955 by Rio Schmitz RN Outcome: Progressing Goal: Patient verbalizes acceptable level of pain relief and ability to engage in desired activity. 05/17/2024936 by Rio Schmitz RN Outcome: Progressing 05/16/20241955 by Rio Schmitz RN Outcome: Progressing MENT SETTER HELPER * Hattie Liao MD - 05/17/2024 9:11 AM CST Infectious Diseases Consult Note Patient's Primary Care Physician: Nguyễn Bingham MD Reason for Consultation: foot ulcer Referring Physcian: No admitting provider for patient encounter. Name: Rene Hyatt Age: [age] year old 3 Chief Complaint/History of Present Illness Didn't tolerate hospital CPAP No fevers Pain controlled Objective: Review of Systems General: no fatigue/fever/chills Skin: no rashes/lesions Respiratory: no cough/sob Cardiovascular: no cp/palpitations Gastrointestinal: no nausea/diarrhea Genitourinary: no dysuria/hematuria Musculoskeletal: no joint pain/no muscle pain Neurological: no rico/seizures Psych: no depression/anxiety Exam Vitals: 05/16/24 2032 05/16/24 2313 05/17/24 0412 05/17/24 0754 BP: 102/64 122/74 113/71 Pulse: 84 87 89 93 Resp: 18 18 18 Temp: 98.3 ??F (36.8 ??C) 98.5 ??F (36.9 ??C) 98.9 ??F (37.2 ??C) SpO2: 90% 92% 93% 92% Weight: Height: Temp (30hrs) Max:100 ??F (37.8 ??C) General appearance: cooperative, no distress, appears stated age, alert HEENT: ncat, vision intact Lungs: clear to auscultation bilaterally Heart: regular rate and rhythm, S1, S2 normal, no murmur, Abdomen: soft, non-tender; bowel sounds normal Extremities: no edema Left foot wrapped Skin: no rash Lines: MEDICATIONS FOR CURRENT ENCOUNTER: SCHEDULED MEDICATIONS: atorvastatin (Lipitor) tablet 40 mg, Oral, AT BEDTIME buPROPion XL 24hr (Wellbutrin-XL) tablet 150 mg, Oral, QDAY cefepime (Maxipime) 2,000 mg in 0.9% NaCl IV 50 mL IVPB, Intravenous, q8h enoxaparin (Lovenox) injection 40 mg, Subcutaneous, BID ferrous sulfate tablet 325 mg, Oral, QDAY AFTER LUNCH gabapentin (Neurontin) capsule 300 mg, Oral, TID gadoterate meglumine (Dotarem/Clariscan) injection, Intravenous, Contrast - Once insulin aspart (NovoLOG) pen 0-4 Units, Subcutaneous, AT BEDTIME insulin aspart (NovoLOG) pen 0-6 Units, Subcutaneous, TID WC insulin aspart (NovoLOG) pen 4 Units, Subcutaneous, TID WC insulin glargine (Lantus) pen 20 Units, Subcutaneous, AT BEDTIME metroNIDAZOLE (Flagyl) tablet 500 mg, Oral, q8h pantoprazole EC (Protonix) tablet 40 mg, Oral, QDAY tamsulosin (Flomax) capsule 0.4 mg, Oral, QDAY [START ON 05/18/2024] Inactivated Influenza Vaccine, Triv. (Flulaval Trivalent; 6mo+) (IIV3) 0.5 mL, Intramuscular, Immunization - Once Data Recent Labs Component Name 05/16/24 0309 05/15/24 0013 05/14/24 0403 WBC 21.7* 25.1* 21.8* HGB 7.3* 7.7* 7.7* HCT 23.6* 24.6* 25.1* PLTCOUNT 300 334 298 Recent Labs Component Name 05/17/24 0500 05/16/24 0309 05/15/24 0013 SODIUM 135* 133* 132* POTASSIUM 4.2 4.2 4.1 CHLORIDE 107 107 103 CO2 20* 19* 22 BUN 37* 35* 31* CREATININE 1.83* 2.01* 1.69* GLUCOSE 207* 185* 235* CALCIUM 7.9* 8.0* 8.2* Recent Labs Component Name 05/16/24 0309 05/15/24 0013 05/14/24 0403 09/17/23 1247 ALBUMIN 1.4* 1.6* 1.6* - ALKPHOS - - - 84 ALT - - - 11 AST - - - 12 No results for input(s): CDIFFTOXINAB in the last 81960 hours. No results for input(s): SEDRATE in the last 76796 hours. No results for input(s): CRP in the last 72940 hours. Recent Labs Component Name 05/14/24 0403 CK 136 . Recent Labs Component Name 05/16/24 0904 05/14/24 1706 VANCOPEAK 40.3* 25.0 Recent Labs Component Name 05/15/24 0013 09/17/23 1247 HGBA1C 6.6* 6.2* Recent Labs Component Name 05/16/24 1257 COLORUA Yellow CLARITYUA Turbid* SPECGRAVUA 1.016 PHUA 5.5 PROTEINUA 1+* BLOODUA 2+* LEUKOCYTEUA 75 MIKKI/uL* NITRITEUA Negative GLUCOSEUA Normal KETONEUA Trace* BILIRUBINUA Negative UROBILINUA Normal WBCUA 6-10* RBCUA None Seen BACTUA None Seen Microbiology Radiology Assessment --Ulcer of left foot? Om 05/14 cx swab - morganella Xray- diffuse gas I hindfoot Mri - Cultures with Morganella and group B strep Debridement to bone level 05/15 Cx GBS, Morganella, proteus -- christie --Dm--uncontrolled --htn --anemia --anxiety, depression -- bph -- mo --non compliance Plan - on cefepime, po flagyl, - podiatry on case, - monitoring labs - f.u bcx , wound cx - local care of wounds - compliance with meds and tight glycemic control Hattie Liao MD MENT SETTER HELPER * Manpreet Stuart MD - 05/17/2024 8:57 AM CST Progress Note Admit Date: 05/13/2024 4:58 PM Hospital Day: 4 Clinical Course 43 y/o WM with h/o Morbid obesity, DM, Depression, GERD, BPH who was transferred from OSH 2/2 infected L foot ulcer. Initial BP 138/76, HR 91, Temp 100.3, lab work remarkable for WBC 22.3K, hb 8.2, Cr 1.31 , Xray showed Diffuse soft tissue swelling of the foot s/p I&D on 05/15. Started on abx,ID & podiatry following. New Symptoms Patient has no new symptoms HDS. MRI negative for abscess Data Vitals: 05/16/24 20305/16/24 2313 05/17/24 0412 05/17/24 0754 BP: 102/64 122/74 113/71 Pulse: 84 87 89 93 Resp: 18 18 18 Temp: 98.3 ??F (36.8 ??C) 98.5 ??F (36.9 ??C) 98.9 ??F (37.2 ??C) SpO2: 90% 92% 93% 92% Weight: Height: Intake/Output Summary (Last 24 hours) at 05/17/2024 0857 Last data filed at 05/17/2024 0635 Gross per 24 hour Intake 790 ml Output 1250 ml Net -460 ml My review of labs, imaging, notes and other tests shows no new significant findings. Recent Labs Component Name 05/16/24 0309 05/15/24 0013 05/14/24 0403 WBC 21.7* 25.1* 21.8* HGB 7.3* 7.7* 7.7* HCT 23.6* 24.6* 25.1* PLTCOUNT 300 334 298 Recent Labs Component Name 05/17/24 0500 05/16/24 0309 05/15/24 0013 SODIUM 135* 133* 132* POTASSIUM 4.2 4.2 4.1 CHLORIDE 107 107 103 CO2 20* 19* 22 BUN 37* 35* 31* CREATININE 1.83* 2.01* 1.69* GLUCOSE 207* 185* 235* CALCIUM 7.9* 8.0* 8.2* MEDICATIONS FOR CURRENT ENCOUNTER: SCHEDULED MEDICATIONS: atorvastatin (Lipitor) tablet 40 mg, Oral, AT BEDTIME buPROPion XL 24hr (Wellbutrin-XL) tablet 150 mg, Oral, QDAY cefepime (Maxipime) 2,000 mg in 0.9% NaCl IV 50 mL IVPB, Intravenous, q8h enoxaparin (Lovenox) injection 40 mg, Subcutaneous, BID ferrous sulfate tablet 325 mg, Oral, QDAY AFTER LUNCH gabapentin (Neurontin) capsule 300 mg, Oral, TID gadoterate meglumine (Dotarem/Clariscan) injection, Intravenous, Contrast - Once insulin aspart (NovoLOG) pen 0-4 Units, Subcutaneous, AT BEDTIME insulin aspart (NovoLOG) pen 0-6 Units, Subcutaneous, TID WC insulin aspart (NovoLOG) pen 4 Units, Subcutaneous, TID WC insulin glargine (Lantus) pen 20 Units, Subcutaneous, AT BEDTIME metroNIDAZOLE (Flagyl) tablet 500 mg, Oral, q8h pantoprazole EC (Protonix) tablet 40 mg, Oral, QDAY tamsulosin (Flomax) capsule 0.4 mg, Oral, QDAY [START ON 05/18/2024] Inactivated Influenza Vaccine, Triv. (Flulaval Trivalent; 6mo+) (IIV3) 0.5 mL, Intramuscular, Immunization - Once CONTINUOUS MEDICATIONS: 0.9% NaCl flush bag, Intravenous, CONTINUOUS PRN 0.9% NaCl infusion, Intravenous, Continuous PRN MEDICATIONS: Or Or 0.9% NaCl flush bag, Intravenous, CONTINUOUS PRN acetaminophen (Tylenol) tablet 650 mg, Oral, q6h PRN cyclobenzaprine (Flexeril) tablet 5 mg, Oral, TID PRN dextrose 10 % IV bolus, Intravenous, PRN dextrose 10 % IV bolus, Intravenous, PRN glucagon (Glucagen) injection 1 mg, Subcutaneous, PRN glucose (Diabetic Use) oral gel, Oral, PRN HYDROmorphone (Dilaudid) injection 0.5 mg, Intravenous, q4h PRN ondansetron (Zofran) injection 4 mg, Intravenous, q6h PRN Exam General appearance: alert, cooperative, no distress Heart: regular rhythm, normal S1 and S2, without murmurs, rubs or gallops Lungs: breath sounds normal and symmetric; no rales or wheezes Abdomen: soft without mass, non-tender, with normal bowel sounds Extremities: no clubbing, cyanosis or edema AYANNA; L foot wrapped with clean dressing Assessment and Plan # Sepsis 2/2 infected L diabetic foot ulcer (POA) -s/p Excisional Debridement of left foot wound skin on 05/15, f/u intra cx & pathology -Intra op Culture yielded morgnella morhanni, GBS, proteus, On cefepime, flagyl, ID following. -Repeat MRI negative for abscess -Per podiatry, patient may need additional resection including a partial calcanectomy, left foot, and possibly more proximal amputation -FU MONO # CHRISTIE (non oliguric) likely multifactorial from sepsis VS infection related GN Vs prerenal -Renal USS showed no evidence of hydronephrosis or medical renal disease, Fena < 1% -nephrology following, continue IVF -hold home ARB, continue Flomax # Anemia of chronic dx, POA -Hb stable, monitor h/h & transfuse PRBC if < 7 # DM, POA == BG elevated, Increase lantus to 25U, novolog 10 u, Continue SSI, diabetic diet -A1c 6.6% # GERD, POA == Continue PPI # Depression, POA == Continue Wellbutrin # BPH, POA == Continue Flomax Obesity -[employer] 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 Internal Medicine MENT SETTER HELPER * Rio Schmitz RN - 05/16/2024 7:56 PM CST Problem: Fall Risk Goal: Fall risk and fall related injury risk are minimized (interventions related to the fall risk can be found in the flowsheet documentation) Outcome: Progressing Problem: Pain/Discomfort Goal: Patient exhibits reduced pain/discomfort as evidenced by pain scores Outcome: Progressing Goal: Patient uses pharmacological and non-pharmacological pain management strategies. Outcome: Progressing Goal: Patient verbalizes acceptable level of pain relief and ability to engage in desired activity. Outcome: Progressing MENT SETTER HELPER * Abby Quinn DPM - 05/16/2024 7:11 PM CST Admit Date: 05/13/2024 4:58 PM Hospital Day: 3 Name: Rene Hyatt Date: 05/16/2024 Medical Doctor: Nguyễn Bingham MD CC: Patient is seen at bedside for follow up for infection, and open ulceration left foot. HPI: Patient is S/P Surgical debridement of left foot wound with biopsy. Patient underwent surgical debridement on 05/15/24. Patient denies n/v/f/c, sob this am. The wound has been treated with Cefepime, and metronidazole, General: Alert and oriented x 3 Family History: No family history on file. Data Vitals: 05/16/24 0414 05/16/24 0747 05/16/24 1105 05/16/24 1818 BP: 110/66 118/70 97/61 114/68 Pulse: 94 91 91 85 Resp: 16 17 18 17 Temp: 99.7 ??F (37.6 ??C) 100 ??F (37.8 ??C) 98.7 ??F (37.1 ??C) 99.4 ??F (37.4 ??C) SpO2: 98% 97% 94% 93% Weight: Height: Temp (30hrs) Max:100.4 ??F (38 ??C) Filed Wts: 05/13/24 2213 Weight: (!) 183.9 kg (405 lb 6.4 oz) MEDICATIONS FOR CURRENT ENCOUNTER: SCHEDULED MEDICATIONS: atorvastatin (Lipitor) tablet 40 mg, Oral, AT BEDTIME buPROPion XL 24hr (Wellbutrin-XL) tablet 150 mg, Oral, QDAY cefepime (Maxipime) 2,000 mg in 0.9% NaCl IV 50 mL IVPB, Intravenous, q8h enoxaparin (Lovenox) injection 40 mg, Subcutaneous, BID ferrous sulfate tablet 325 mg, Oral, QDAY AFTER LUNCH gabapentin (Neurontin) capsule 300 mg, Oral, TID gadoterate meglumine (Dotarem/Clariscan) injection, Intravenous, Contrast - Once insulin aspart (NovoLOG) pen 0-4 Units, Subcutaneous, AT BEDTIME insulin aspart (NovoLOG) pen 0-6 Units, Subcutaneous, TID WC insulin aspart (NovoLOG) pen 4 Units, Subcutaneous, TID WC insulin glargine (Lantus) pen 20 Units, Subcutaneous, AT BEDTIME metroNIDAZOLE (Flagyl) tablet 500 mg, Oral, q8h pantoprazole EC (Protonix) tablet 40 mg, Oral, QDAY tamsulosin (Flomax) capsule 0.4 mg, Oral, QDAY CONTINUOUS MEDICATIONS: 0.9% NaCl flush bag, Intravenous, CONTINUOUS PRN 0.9% NaCl infusion, Intravenous, Continuous PRN MEDICATIONS: Or Or 0.9% NaCl flush bag, Intravenous, CONTINUOUS PRN acetaminophen (Tylenol) tablet 650 mg, Oral, q6h PRN cyclobenzaprine (Flexeril) tablet 5 mg, Oral, TID PRN dextrose 10 % IV bolus, Intravenous, PRN dextrose 10 % IV bolus, Intravenous, PRN glucagon (Glucagen) injection 1 mg, Subcutaneous, PRN glucose (Diabetic Use) oral gel, Oral, PRN HYDROmorphone (Dilaudid) injection 0.5 mg, Intravenous, q4h PRN Recent Labs Component Name 05/16/24 0309 05/15/24 0013 05/14/24 0403 WBC 21.7* 25.1* 21.8* HGB 7.3* 7.7* 7.7* HCT 23.6* 24.6* 25.1* PLTCOUNT 300 334 298 Recent Labs Component Name 05/16/24 0309 05/13/24 1830 09/17/23 1247 SODIUM 133* - - POTASSIUM 4.2 - 3.8 CHLORIDE 107 - - CO2 19* - 26 BUN 35* - 18 CREATININE 2.01* - 0.75 GLUCOSE 185* - 119* CALCIUM 8.0* - 9.6 ALBUMIN 1.4* - - ALKPHOS - - 84 ALT - - 11 AST - - 12 EGFR 41* - >90 - = values in this interval not displayed. No results for input(s): INR in the last 60532 hours. No results for input(s): PT in the last 90590 hours. No results for input(s): PTT in the last 87958 hours. GENERAL: Conversant; NAD PSYCHE: Alert and oriented to person, place, and time. Appropriate affect noted. EYES: PERRLA; No scleral icterus. Conjuctiva moist NECK: Supple; no masses. Trachea midline. No thyromegaly Patient Vitals for the past 24 hrs: Temp Pulse Resp BP SpO2 05/16/24 1818 99.4 ??F (37.4 ??C) 85 17 114/68 93 % 05/16/24 1105 98.7 ??F (37.1 ??C) 91 18 97/61 94 % 05/16/24 0747 100 ??F (37.8 ??C) 91 17 118/70 97 % 05/16/24 0414 99.7 ??F (37.6 ??C) 94 16 110/66 98 % 05/16/24 0012 (!) 100.4 ??F (38 ??C) 95 16 120/72 94 % 05/15/24 1941 99.8 ??F (37.7 ??C) 103 20 147/82 95 % Lower extremity VASCULAR: Dorsalis pedis pulses: Right 0/4 Left 0/4 Posterior tibial pulses: Right 0/4 Left 0/4 Patient shows: decreased hair growth thin atrophic skin No edema noted bilaterally LYMPHATICS: Lymphedema is noted bilaterally. No painful popliteal or inguinal nodes DERMATOLOGIC: Skin color and texture are: Ulceration located: Left foot There is a large open ulceration noted to the plantar aspect of left foot with granular wound base and < 10% fibrin, necrosis or slough noted today. There is exposed tendon and bone noted. There continues to be franchesca wound erythema noted extending proximally to left calf. There is moderate serousdrainage noted. There is no malodor noted. Size 11.0cmx 15.0cm x 2.5cm NEUROLOGIC: Protective Sensation is absent with 5.07 SWMF bilaterally at toes and MPJ levels Patient can not distinguish between sharp and dull. Proprioception is intact. MUSCULO: Manual Muscle strength is diminsihed in the anterior and posterior muscle groups bilateral feet andlower limbs. Blood Culture: Wound Culture: Arterial Doppler: Order Xray: COMPARISON: 03/06/2023 FINDINGS: No acute fracture or dislocation identified. Accessory ossicle at the base of the 5th metatarsal. No osseous cortical erosions. No radiopaque foreign body. Soft tissue gas within the hindfoot. Diffuse soft tissue swelling of the foot. IMPRESSION: Diffuse soft tissue swelling of the foot. Soft tissue gas within the hindfoot. No acute osseous abnormality. MRI: Ordered Culture Bone calcaneus Left 05/15/24 Collected 05/15/2024 16:33 Status: Preliminary result Visible to patient: No (not released) Dx: Left foot infection Specimen Information: Foot; Microbiology 0 Result Notes Gram Stain Critical Heavy Polymorphonuclear cells Heavy Gram-positive cocci Heavy Gram-variable bacilli Surgical Description: Calcaneus Bone Left Foot Resulting Agency: [facility] Specimen Collected: 05/15/24 16:33 Last Resulted: 05/15/24 23:12 Culture wound Left foot 05/15/24 Collected 05/15/2024 16:34 Status: Preliminary result Visible to patient: No (not released) Dx: Left foot infection Specimen Information: Foot; Microbiology 0 Result Notes Gram Stain Rare Polymorphonuclear cells No organisms seen Surgical Description: Left Foot Resulting Agency: [facility] Specimen Collected: 05/15/24 16:34 Last Resulted: 05/15/24 23:17 Pathology: Biopsy taken 05/15/24. Awaiting results. Patient Glucose Bedside (mg/dL) in the past 24 hrs: 05/15/24 1941, Glucose Bedside (mg/dL):171 mg/dL 05/16/24 0747, Glucose Bedside (mg/dL):222 mg/dL 05/16/24 1105, Glucose Bedside (mg/dL):208 mg/dL 05/16/24 1818, Glucose Bedside (mg/dL):231 mg/dL ASSESSEMENT: 1. Surgical Debridement of left foot wound including bone biopsy 2. Infection left foot 3. Osteomyelitis left foot 4. Diabetic neuropathic ulceration - 5. PVD 6. Neuropathy 7. Diabetes Infection left foot/ Osteomyelitis left foot - Cefepime (Maxipime) 2,000mg every 8 hours - Metronidazole 500mg every 8 hours - Vancomycin 1500mg every 12 hours S/P Surgical Debridement of left foot wound including bone biopsy Diabetic neuropathic ulceration left foot - Dressing instructions: Cleanse left foot wound with vashe. Blot dry. Apply betadine soaked gauze to wound base. Cover with secondary dry dressings including 4x4s, abd pad, kerlix and dee bandage. Change dressing daily. - Weight bearing: Ambulate non weight bearing to left foot with walker. Neuropathy/ Type II Diabetes - Monitor blood glucose - Internal medicine following PLAN: Patient is S/P Surgical debridement of left foot wound with biopsy. The wound is stable today. There is no sign of failing tissue. There is no necrosis noted. There is no malodor noted. Will Monitor wound to to determine if additional debridement is necessary. Order MRI left lower limb for abscess. Patients infection is severe. Patient is at high risk for limb loss. Thank you for asking [facility], Dr. Abby Quinn to participate in the care of your patient. Please call [phone] (Office), (Exchange), (Cell #, Call/ Text) with any questions or concerns. MENT SETTER HELPER * Zana Tolentino MD - 05/16/2024 11:18 AM CST Progress Note Admit Date: 05/13/2024 4:58 PM Hospital Day: 3 Clinical Course 43 y/o WM with h/o Morbid obesity, DM, Depression, GERD, BPH who was transferred from OSH 2/2 infected L foot ulcer. Initial BP 138/76, HR 91, Temp 100.3, lab work remarkable for WBC 22.3K, hb 8.2, Cr 1.31 , Xray showed Diffuse soft tissue swelling of the foot. Soft tissue gas within the hindfoot. Started on abx, ID & podiatry consulted New Symptoms Patient has no new symptoms == temperature cure down trending Data Vitals: 05/16/24 0012 05/16/24 0414 05/16/24 0747 05/16/24 1105 BP: 120/72 110/66 118/70 97/61 Pulse: 95 94 91 91 Resp: 16 16 17 18 Temp: (!) 100.4 ??F (38 ??C) 99.7 ??F (37.6 ??C) 100 ??F (37.8 ??C) 98.7 ??F (37.1 ??C) SpO2: 94% 98% 97% 94% Weight: Height: Intake/Output Summary (Last 24 hours) at 05/16/2024 1118 Last data filed at 05/16/2024 0414 Gross per 24 hour Intake 1000 ml Output 650 ml Net 350 ml My review of labs, imaging, notes and other tests shows no new significant findings. Recent Labs Component Name 05/16/24 0309 05/15/24 0013 05/14/24 0403 WBC 21.7* 25.1* 21.8* HGB 7.3* 7.7* 7.7* HCT 23.6* 24.6* 25.1* PLTCOUNT 300 334 298 Recent Labs Component Name 05/16/24 0309 05/15/24 0013 05/14/24 0403 SODIUM 133* 132* 133* POTASSIUM 4.2 4.1 4.1 CHLORIDE 107 103 106 CO2 19* 22 20* BUN 35* 31* 28* CREATININE 2.01* 1.69* 1.38* GLUCOSE 185* 235* 185* CALCIUM 8.0* 8.2* 8.2* MEDICATIONS FOR CURRENT ENCOUNTER: SCHEDULED MEDICATIONS: atorvastatin (Lipitor) tablet 40 mg, Oral, AT BEDTIME buPROPion XL 24hr (Wellbutrin-XL) tablet 150 mg, Oral, QDAY cefepime (Maxipime) 2,000 mg in 0.9% NaCl IV 50 mL IVPB, Intravenous, q8h enoxaparin (Lovenox) injection 40 mg, Subcutaneous, BID ferrous sulfate tablet 325 mg, Oral, QDAY AFTER LUNCH gabapentin (Neurontin) capsule 300 mg, Oral, TID insulin aspart (NovoLOG) pen 0-4 Units, Subcutaneous, AT BEDTIME insulin aspart (NovoLOG) pen 0-6 Units, Subcutaneous, TID WC insulin aspart (NovoLOG) pen 4 Units, Subcutaneous, TID WC insulin glargine (Lantus) pen 20 Units, Subcutaneous, AT BEDTIME metroNIDAZOLE (Flagyl) tablet 500 mg, Oral, q8h pantoprazole EC (Protonix) tablet 40 mg, Oral, QDAY tamsulosin (Flomax) capsule 0.4 mg, Oral, QDAY vancomycin (Vancocin) 1,500 mg in 530 mL IVPB, Intravenous, q12h vancomycin (Vancocin) IV dose per pharmacy, Does not apply, DIRECTED CONTINUOUS MEDICATIONS: 0.9% NaCl flush bag, Intravenous, CONTINUOUS PRN 0.9% NaCl infusion, Intravenous, Continuous PRN MEDICATIONS: Or Or 0.9% NaCl flush bag, Intravenous, CONTINUOUS PRN acetaminophen (Tylenol) tablet 1,000 mg, Oral, Once PRN acetaminophen (Tylenol) tablet 650 mg, Oral, Once PRN acetaminophen (Tylenol) tablet 650 mg, Oral, q6h PRN atropine injection 0.4 mg, Intravenous, Once PRN dextrose 10 % IV bolus, Intravenous, PRN dextrose 10 % IV bolus, Intravenous, PRN droPERidol (Inapsine) injection 0.625 mg, Intravenous, Once PRN glucagon (Glucagen) injection 1 mg, Subcutaneous, PRN glucose (Diabetic Use) oral gel, Oral, PRN HYDROmorphone (Dilaudid) injection 0.5 mg, Intravenous, q4h PRN insulin regular human 1 unit/mL injection, Intravenous, PRN meperidine (Demerol) injection 12.5 mg, Intravenous, Once PRN ondansetron (Zofran) injection 4 mg, Intravenous, Once PRN ondansetron (Zofran) injection 4 mg, Intravenous, Once PRN oxyCODONE (immediate release) (Roxicodone) tablet 5 mg, Oral, Once PRN Exam General appearance: alert, cooperative, no distress Heart: regular rhythm, normal S1 and S2, without murmurs, rubs or gallops Lungs: breath sounds normal and symmetric; no rales or wheezes Abdomen: soft without mass, non-tender, with normal bowel sounds Extremities: no clubbing, cyanosis or edema AYANNA; L foot wrapped with clean dressing Assessment and Plan # Sepsis 2/2 infected L diabetic foot ulcer (POA) == Xray showed Diffuse soft tissue swelling of the foot. Soft tissue gas within the hindfoot. Woundcx, MRI & MONO ordered == s/p Excisional Debridement of left foot wound skin, subcutaneous level, muscle and bone. Bone was the deepest level of debridement on 05/15, f/u intra cx & pathology == Continue cefepime, flagyl vancomycin, monitor cbc / Tmax, Discussed with ID & podiatry, patient will possibly need additional resection including a partial calcanectomy, left foot, and possibly more proximal amputation # CHRISTIE (non oliguric) likely multifactorial; sepsis, pre renal , POA == Renal USS showed no evidence of hydronephrosis or medical renal disease, Fena < 1% == Cr up trending, continue IVF (NS), monitor BMP, avoid nephrotoxic meds, ( lasix & ARB held) == Nephrology consulted # Anemia of chronic dx, POA == Hb stable, monitor h/h & transfuse PRBC if < 7 # DM, POA == BG elevated, Increase lantus to 20U, Continue SSI, diabetic diet == A1c 6.6% # GERD, POA == Continue PPI # Depression, POA == Continue Wellbutrin # BPH, POA == Continue Flomax DVT prophylaxis Lovenox D/w RN Zana Tolentino MD,MPH 05/16/2024 MENT SETTER HELPER * Dexter Cotto OT - 05/16/2024 9:38 AM CST OT order noted, chart review complete. Attempted to see pt for OT initial eval, however pt with bedrest orders. Will attempt to see pt at a later time/date for initial eval when appropriate. Thank you for the referral, YURIDIA RenteriaR/Steffi [phone] 05/16/2024 MENT SETTER HELPER * Kim Wen, PharmD - 05/16/2024 9:30 AM CST Images from the original note were not included. Pharmacy Monitoring ACTIVE CONSULTS TO PHARMACY/DISEASE STATE MONITORING Pharmacy Consult: Vancomycin Management VANCOMYCIN MONITORING Indication: Bone / Joint (SSTI) with Goal Level: AUC 400-600 Vancomycin Administrations from [facility] (last 72 hours) Date/Time Action Medication Dose Rate 05/16/24 0545 $ New Bag/Syringe vancomycin (Vancocin) 1,500 mg in 530 mL IVPB 1,500 mg 353.33 mL/hr 05/15/24 1331 $ New Bag/Syringe vancomycin (Vancocin) 1,500 mg in 530 mL IVPB 1,500 mg 353.33 mL/hr 05/15/24 0023 $ New Bag/Syringe vancomycin (Vancocin) 1,500 mg in 530 mL IVPB 1,500 mg 353.33 mL/hr 05/14/24 1313 $ New Bag/Syringe vancomycin (Vancocin) 1,500 mg in 530 mL IVPB 1,500 mg 353.33 mL/hr Recent Labs Component Name 05/16/24 0309 05/15/24 0013 05/14/24 0403 CREATININE 2.01* 1.69* 1.38* BUN 35* 31* 28* WBC 21.7* 25.1* 21.8* VANCORNDM - - 14.5 VANCTROUGH - 18.2 - Vancomycin Dosing/Modification History: Pt received Vancomycin 2 gm IV x 1 on 05/13 & Vancomycin2.5 gm IV x 1 on 05/12 @ OSH Vancomycin Peak = 40.3 today MON 05/16 @ 0904 A Vancomycin Trough Level is to be drawn this afternoon MON 05/16 @ 1700 Other ABX Therapy: Flagyl 500 mg PO q 8 hours AND Cefepime 2 gm IV q 8 hours Of Note: This pt's S. Creatinine level increased Greater than 0.3 in 24 hours. Therefore, Vancomycin Steady State Levels ordered to be drawn today MON 05/16 Plan for next level: 05/16 Date/time: 05/16 @ 1700 Type: [x]Trough ; [] Random ; [] Peak Ordered?: [x] Yes ; [] No Subjective / Objective Rene Hyatt is a 43 year old male. No chief complaint on file. Height: 6' 7 (200.7 cm) Wt 183.9 kg (405 lb 6.4 oz) Body mass index is 45.67 kg/m??. Serum creatinine: 2.01 mg/dL (H) 05/16/24 030 Estimated creatinine clearance: 86.1 mL/min (A) MENT SETTER HELPER * Hattie Liao MD - 05/16/2024 9:23 AM CST Infectious Diseases Consult Note Patient's Primary Care Physician: Nguyễn Bingham MD Reason for Consultation: foot ulcer Referring Physcian: No admitting provider for patient encounter. Name: Rene Hyatt Age: [age] year old 2 Chief Complaint/History of Present Illness Chart reviewed No fevers Pain controlled Objective: Review of Systems General: no fatigue/fever/chills Skin: no rashes/lesions Respiratory: no cough/sob Cardiovascular: no cp/palpitations Gastrointestinal: no nausea/diarrhea Genitourinary: no dysuria/hematuria Musculoskeletal: no joint pain/no muscle pain Neurological: no rico/seizures Psych: no depression/anxiety Exam Vitals: 05/15/24 1941 05/16/24 0012 05/16/24 0414 05/16/24 0747 BP: 147/82 120/72 110/66 118/70 Pulse: 103 95 94 91 Resp: 20 16 16 17 Temp: 99.8 ??F (37.7 ??C) (!) 100.4 ??F (38 ??C) 99.7 ??F (37.6 ??C) 100 ??F (37.8 ??C) SpO2: 95% 94% 98% 97% Weight: Height: Temp (30hrs) Max:100.4 ??F (38 ??C) General appearance: cooperative, no distress, appears stated age, alert HEENT: ncat, vision intact Lungs: clear to auscultation bilaterally Heart: regular rate and rhythm, S1, S2 normal, no murmur, Abdomen: soft, non-tender; bowel sounds normal Extremities: no edema Left foot wrapped Skin: no rash Lines: MEDICATIONS FOR CURRENT ENCOUNTER: SCHEDULED MEDICATIONS: atorvastatin (Lipitor) tablet 40 mg, Oral, AT BEDTIME buPROPion XL 24hr (Wellbutrin-XL) tablet 150 mg, Oral, QDAY cefepime (Maxipime) 2,000 mg in 0.9% NaCl IV 50 mL IVPB, Intravenous, q8h enoxaparin (Lovenox) injection 40 mg, Subcutaneous, BID ferrous sulfate tablet 325 mg, Oral, QDAY AFTER LUNCH gabapentin (Neurontin) capsule 300 mg, Oral, TID insulin aspart (NovoLOG) pen 0-4 Units, Subcutaneous, AT BEDTIME insulin aspart (NovoLOG) pen 0-6 Units, Subcutaneous, TID WC insulin aspart (NovoLOG) pen 4 Units, Subcutaneous, TID WC insulin glargine (Lantus) pen 20 Units, Subcutaneous, AT BEDTIME metroNIDAZOLE (Flagyl) tablet 500 mg, Oral, q8h pantoprazole EC (Protonix) tablet 40 mg, Oral, QDAY tamsulosin (Flomax) capsule 0.4 mg, Oral, QDAY vancomycin (Vancocin) 1,500 mg in 530 mL IVPB, Intravenous, q12h vancomycin (Vancocin) IV dose per pharmacy, Does not apply, DIRECTED Data Recent Labs Component Name 05/16/24 0309 05/15/24 0013 05/14/24 0403 WBC 21.7* 25.1* 21.8* HGB 7.3* 7.7* 7.7* HCT 23.6* 24.6* 25.1* PLTCOUNT 300 334 298 Recent Labs Component Name 05/16/24 0309 05/15/24 0013 05/14/24 0403 SODIUM 133* 132* 133* POTASSIUM 4.2 4.1 4.1 CHLORIDE 107 103 106 CO2 19* 22 20* BUN 35* 31* 28* CREATININE 2.01* 1.69* 1.38* GLUCOSE 185* 235* 185* CALCIUM 8.0* 8.2* 8.2* Recent Labs Component Name 05/16/24 0309 05/15/24 0013 05/14/24 0403 09/17/23 1247 ALBUMIN 1.4* 1.6* 1.6* - ALKPHOS - - - 84 ALT - - - 11 AST - - - 12 No results for input(s): CDIFFTOXINAB in the last 65995 hours. No results for input(s): SEDRATE in the last 13171 hours. No results for input(s): CRP in the last 17382 hours. Recent Labs Component Name 05/14/24 0403 CK 136 . Recent Labs Component Name 05/14/24 1706 VANCOPEAK 25.0 Recent Labs Component Name 05/15/24 0013 09/17/23 1247 HGBA1C 6.6* 6.2* Recent Labs Component Name 10/08/23 0852 PROTEINUA 2+ 1.0 UROBILINUA 3.5 Microbiology Radiology Assessment --Ulcer of left foot? Om 05/14 cx swab - morganella Xray- diffuse gas I hindfoot Mri - Cultures with Morganella and group B strep -- christie --Dm--uncontrolled --htn --anemia --anxiety, depression -- bph -- mo --non compliance Plan - on cefepime, po flagyl, stop vanc - podiatry on case, plan for surgery on 05/15 - monitoring labs - f.u bcx , wound cx - mri foot and mono ordered - local care of wounds - compliance with meds and tight glycemic control Hattie Liao MD MENT SETTER HELPER * Alma Rosa Barclay, PT - 05/16/2024 9:20 AM CST Attempted to see patient for physical therapy. Unable to complete visit due to patient has bedrest orders. Will attempt to see patient at a later date. [place] PT [phone] MENT SETTER HELPER * Emmanuelle Barragan RN - 05/16/2024 7:20 AM CST Wound RN consult placed on admission. Patient being managed by Podiatry. Wound Rn will defer to . Signing off. Reconsult if needed in the future. Emmanuelle Barragan RN 05/16/2024 7:21 AM MENT SETTER HELPER * Luis Daniel Starks RN - 05/15/2024 9:09 PM CST Problem: Fall Risk Goal: Fall risk and fall related injury risk are minimized (interventions related to the fall risk can be found in the flowsheet documentation) Outcome: Progressing Note: Patient will be free from injury Problem: Pain/Discomfort Goal: Patient exhibits reduced pain/discomfort as evidenced by pain scores Outcome: Progressing Note: Pain managed via MAR MENT SETTER HELPER * Esha Can RN - 05/15/2024 7:55 PM CST Care Coordination Initial Assessment Expected Discharge Date: 05/17/2024 Expected Discharge Disposition: Home or Self Care Transportation at Discharge: (cab or ambulance) Prior Level of Care: Home Prior to Admit Provider: Michael Provider-Dr. Teena Paulino Comments: PER PROVIDER-43 y/o WM with h/o Morbid obesity, DM, Depression, GERD, BPH who was transferred from [facility] 2/2 infected L foot ulcer. Initial BP 138/76, HR 91, Temp 100.3, lab work remarkable for WBC 22.3K, hb 8.2, Cr 1.31 , Xray showed Diffuse soft tissue swelling of the foot. Soft tissue gas within the hindfoot. Started on abx, ID & podiatry consulted Lives with: Family Members (Lives with mother, who is currently in [facility]) Physical Limitations: None Requires Assistance With: None Preferred Pharmacy: [facility] - [address] [id number] [address] [phone] READMISSION RISK SCORE is 14 at 7:55 PM 05/15/2024. Met with patient Family Support (name and phone): Extended Emergency Contact Information Primary Emergency Contact: CLARA HYATT [place] Relation: Mother Patient or player services representative requests care coordination reach out to family or caregiver listed above regarding discharge planning and at time of discharge? No Actual Level of Care/Dispostion Details Durable Medical Equipment Planning Equipment at Home: CPAP/BiPAP List DME pt. 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 For any questions or needs please contact: Racing Board Marker/Social Work Name/Phone number: Esha Can RN MENT SETTER HELPER * Lesa Rodríguez MD - 05/15/2024 4:09 PM CST Infectious Diseases Consult Note Patient's Primary Care Physician: Nguyễn Bingham MD Reason for Consultation: foot ulcer Referring Physcian: No admitting provider for patient encounter. Name: Rene Hyatt Age: [age] year old 1 Chief Complaint/History of Present Illness Surgery plan today No fevers Pain controlled Objective: Review of Systems General: no fatigue/fever/chills Skin: no rashes/lesions Respiratory: no cough/sob Cardiovascular: no cp/palpitations Gastrointestinal: no nausea/diarrhea Genitourinary: no dysuria/hematuria Musculoskeletal: no joint pain/no muscle pain Neurological: no rico/seizures Psych: no depression/anxiety Exam Vitals: 05/15/24 0240 05/15/24 0430 05/15/24 0744 05/15/24 1132 BP: 116/65 120/70 140/79 Pulse: 89 92 88 Resp: 16 18 20 Temp: (!) 102.2 ??F (39 ??C) (!) 100.2 ??F (37.9 ??C) 99.2 ??F (37.3 ??C) 98.5 ??F (36.9 ??C) SpO2: 97% Weight: Height: Temp (30hrs) Max:102.2 ??F (39 ??C) General appearance: cooperative, no distress, appears stated age, alert HEENT: ncat, vision intact Lungs: clear to auscultation bilaterally Heart: regular rate and rhythm, S1, S2 normal, no murmur, Abdomen: soft, non-tender; bowel sounds normal Extremities: no edema Left foot wrapped Skin: no rash Lines: MEDICATIONS FOR CURRENT ENCOUNTER: SCHEDULED MEDICATIONS: atorvastatin (Lipitor) tablet 40 mg, Oral, AT BEDTIME buPROPion XL 24hr (Wellbutrin-XL) tablet 150 mg, Oral, QDAY cefepime (Maxipime) 2,000 mg in 0.9% NaCl IV 50 mL IVPB, Intravenous, q8h enoxaparin (Lovenox) injection 40 mg, Subcutaneous, BID ferrous sulfate tablet 325 mg, Oral, QDAY AFTER LUNCH gabapentin (Neurontin) capsule 300 mg, Oral, TID insulin aspart (NovoLOG) pen 0-4 Units, Subcutaneous, AT BEDTIME insulin aspart (NovoLOG) pen 0-6 Units, Subcutaneous, TID WC insulin aspart (NovoLOG) pen 4 Units, Subcutaneous, TID WC insulin glargine (Lantus) pen 15 Units, Subcutaneous, AT BEDTIME metroNIDAZOLE (Flagyl) tablet 500 mg, Oral, q8h pantoprazole EC (Protonix) tablet 40 mg, Oral, QDAY tamsulosin (Flomax) capsule 0.4 mg, Oral, QDAY vancomycin (Vancocin) 1,500 mg in 530 mL IVPB, Intravenous, q12h vancomycin (Vancocin) IV dose per pharmacy, Does not apply, DIRECTED Data Recent Labs Component Name 05/15/24 0013 05/14/24 0403 05/13/24 1830 WBC 25.1* 21.8* 22.3* HGB 7.7* 7.7* 8.2* HCT 24.6* 25.1* 25.6* PLTCOUNT 334 298 318 Recent Labs Component Name 05/15/24 0013 05/14/24 0403 05/13/24 1830 SODIUM 132* 133* 133* POTASSIUM 4.1 4.1 3.8 CHLORIDE 103 106 105 CO2 22 20* 19* BUN 31* 28* 30* CREATININE 1.69* 1.38* 1.32* GLUCOSE 235* 185* 186* CALCIUM 8.2* 8.2* 8.3* Recent Labs Component Name 05/15/24 0013 05/14/24 0403 09/17/23 1247 ALBUMIN 1.6* 1.6* - ALKPHOS - - 84 ALT - - 11 AST - - 12 No results for input(s): CDIFFTOXINAB in the last 48477 hours. No results for input(s): SEDRATE in the last 43303 hours. No results for input(s): CRP in the last 68413 hours. Recent Labs Component Name 05/14/24 0403 CK 136 . Recent Labs Component Name 05/14/24 1706 VANCOPEAK 25.0 Recent Labs Component Name 05/15/24 0013 09/17/23 1247 HGBA1C 6.6* 6.2* Recent Labs Component Name 10/08/23 0852 PROTEINUA 2+ 1.0 UROBILINUA 3.5 Microbiology Radiology Assessment --Ulcer of left foot? Om 05/14 cx swab - morganella Xray- diffuse gas I hindfoot Mri - -- christie --Dm--uncontrolled --htn --anemia --anxiety, depression -- bph -- mo --non compliance Plan - on cefepime, po flagyl, vanc - pending OR cx - podiatry on case, plan for surgery on 05/15 - monitoring labs - f.u bcx , wound cx - mri foot and mono ordered - local care of wounds - compliance with meds and tight glycemic control Lesa Rodríguez MD MENT SETTER HELPER * Zana Tolentino MD - 05/15/2024 11:47 AM CST .Progress Note Admit Date: 05/13/2024 4:58 PM Hospital Day: 2 Clinical Course 43 y/o WM with h/o Morbid obesity, DM, Depression, GERD, BPH who was transferred from [facility] 2/2 infected L foot ulcer. Initial BP 138/76, HR 91, Temp 100.3, lab work remarkable for WBC 22.3K, hb 8.2, Cr 1.31 , Xray showed Diffuse soft tissue swelling of the foot. Soft tissue gas within the hindfoot. Started on abx, ID & podiatry consulted New Symptoms == spiked fever Tmax 102.2 Data Vitals: 05/15/24 0240 05/15/24 0430 05/15/24 0744 05/15/24 1132 BP: 116/65 120/70 140/79 Pulse: 89 92 88 Resp: 16 18 20 Temp: (!) 102.2 ??F (39 ??C) (!) 100.2 ??F (37.9 ??C) 99.2 ??F (37.3 ??C) 98.5 ??F (36.9 ??C) SpO2: 97% Weight: Height: Intake/Output Summary (Last 24 hours) at 05/15/2024 1147 Last data filed at 05/15/2024 0431 Gross per 24 hour Intake 240 ml Output 400 ml Net -160 ml My review of labs, imaging, notes and other tests shows no new significant findings. Recent Labs Component Name 05/15/24 0013 05/14/24 0403 05/13/24 1830 WBC 25.1* 21.8* 22.3* HGB 7.7* 7.7* 8.2* HCT 24.6* 25.1* 25.6* PLTCOUNT 334 298 318 Recent Labs Component Name 05/15/24 0013 05/14/24 0403 05/13/24 1830 SODIUM 132* 133* 133* POTASSIUM 4.1 4.1 3.8 CHLORIDE 103 106 105 CO2 22 20* 19* BUN 31* 28* 30* CREATININE 1.69* 1.38* 1.32* GLUCOSE 235* 185* 186* CALCIUM 8.2* 8.2* 8.3* MEDICATIONS FOR CURRENT ENCOUNTER: SCHEDULED MEDICATIONS: atorvastatin (Lipitor) tablet 40 mg, Oral, AT BEDTIME buPROPion XL 24hr (Wellbutrin-XL) tablet 150 mg, Oral, QDAY cefepime (Maxipime) 2,000 mg in 0.9% NaCl IV 50 mL IVPB, Intravenous, q8h enoxaparin (Lovenox) injection 40 mg, Subcutaneous, BID ferrous sulfate tablet 325 mg, Oral, QDAY AFTER LUNCH gabapentin (Neurontin) capsule 300 mg, Oral, TID insulin aspart (NovoLOG) pen 0-4 Units, Subcutaneous, AT BEDTIME insulin aspart (NovoLOG) pen 0-6 Units, Subcutaneous, TID WC insulin aspart (NovoLOG) pen 4 Units, Subcutaneous, TID WC insulin glargine (Lantus) pen 15 Units, Subcutaneous, AT BEDTIME metroNIDAZOLE (Flagyl) tablet 500 mg, Oral, q8h pantoprazole EC (Protonix) tablet 40 mg, Oral, QDAY tamsulosin (Flomax) capsule 0.4 mg, Oral, QDAY vancomycin (Vancocin) 1,500 mg in 530 mL IVPB, Intravenous, q12h vancomycin (Vancocin) IV dose per pharmacy, Does not apply, DIRECTED CONTINUOUS MEDICATIONS: 0.9% NaCl flush bag, Intravenous, CONTINUOUS PRN 0.9% NaCl infusion, Intravenous, Continuous PRN MEDICATIONS: Or Or 0.9% NaCl flush bag, Intravenous, CONTINUOUS PRN acetaminophen (Tylenol) tablet 650 mg, Oral, q6h PRN dextrose 10 % IV bolus, Intravenous, PRN dextrose 10 % IV bolus, Intravenous, PRN glucagon (Glucagen) injection 1 mg, Subcutaneous, PRN glucose (Diabetic Use) oral gel, Oral, PRN Exam General appearance: alert, cooperative, no distress Heart: regular rhythm, normal S1 and S2, without murmurs, rubs or gallops Lungs: breath sounds normal and symmetric; no rales or wheezes Abdomen: soft without mass, non-tender, with normal bowel sounds Extremities: no clubbing, cyanosis or edema AYANNA; L foot wrapped with clean dressing Assessment and Plan # Sepsis 2/2 infected L diabetic foot ulcer (POA) == Xray showed Diffuse soft tissue swelling of the foot. Soft tissue gas within the hindfoot. Woundcx, MRI & MONO ordered == Continue cefepime, flagyl vancomycin, monitor cbc / Tmax, Discussed with ID & podiatry, scheduled for Incision and drainage left foot with debridement of wound today # CHRISTIE (non oliguric) likely multifactorial; sepsis, pre renal , POA == Renal USS showed no evidence of hydronephrosis or medical renal disease, Fena < 1% == Switch IVF to NS, monitor BMP, avoid nephrotoxic meds, ( lasix & ARB held) == Consider nephrology eval if cr doesn't improve # Anemia of chronic dx, POA == Hb stable, monitor h/h & transfuse PRBC if < 7 # DM, POA == Continue lantus 15U, SSI, diabetic diet # GERD, POA == Continue PPI # Depression, POA == Continue Wellbutrin # BPH, POA == Continue Flomax DVT prophylaxis Lovenox D/w RN Zana Tolentino MD,MPH 05/15/2024 MENT SETTER HELPER * Abby Quinn DPM - 05/15/2024 8:24 AM CST Admit Date: 05/13/2024 4:58 PM Hospital Day: 2 Name: Rene Hyatt Date: 05/15/2024 Medical Doctor: Nguyễn Bingham MD CC: Patient is seen at bedside for follow up for open ulceration with infection left foot. HPI: Patient denies n/v/f/c, sob this am. Patient relates having the wound for greater than 3-4 months. Yesterday, patient related he had the wound for 3-4 weeks. This morning he relates he meant that thewound got worst over the last 3- 4 weeks. H Patient seen at bedside for evaluation this am 05/15/24. General: Alert and oriented x 3 Family History: No family history on file. Data Vitals: 05/14/24 2336 05/15/24 0240 05/15/24 0430 05/15/24 0744 BP: 112/69 116/65 120/70 Pulse: 80 89 92 Resp: 16 16 18 Temp: (!) 102.1 ??F (38.9 ??C) (!) 102.2 ??F (39 ??C) (!) 100.2 ??F (37.9 ??C) 99.2 ??F (37.3 ??C) SpO2: 94% 97% Weight: Height: Temp (30hrs) Max:102.2 ??F (39 ??C) Filed Wts: 05/13/24 2213 Weight: (!) 183.9 kg (405 lb 6.4 oz) MEDICATIONS FOR CURRENT ENCOUNTER: SCHEDULED MEDICATIONS: atorvastatin (Lipitor) tablet 40 mg, Oral, AT BEDTIME buPROPion XL 24hr (Wellbutrin-XL) tablet 150 mg, Oral, QDAY cefepime (Maxipime) 2,000 mg in 0.9% NaCl IV 50 mL IVPB, Intravenous, q8h enoxaparin (Lovenox) injection 40 mg, Subcutaneous, BID ferrous sulfate tablet 325 mg, Oral, QDAY AFTER LUNCH gabapentin (Neurontin) capsule 300 mg, Oral, TID insulin aspart (NovoLOG) pen 0-4 Units, Subcutaneous, AT BEDTIME insulin aspart (NovoLOG) pen 0-6 Units, Subcutaneous, TID WC insulin aspart (NovoLOG) pen 4 Units, Subcutaneous, TID WC insulin glargine (Lantus) pen 15 Units, Subcutaneous, AT BEDTIME metroNIDAZOLE (Flagyl) tablet 500 mg, Oral, q8h pantoprazole EC (Protonix) tablet 40 mg, Oral, QDAY tamsulosin (Flomax) capsule 0.4 mg, Oral, QDAY vancomycin (Vancocin) 1,500 mg in 530 mL IVPB, Intravenous, q12h vancomycin (Vancocin) IV dose per pharmacy, Does not apply, DIRECTED CONTINUOUS MEDICATIONS: 0.9% NaCl flush bag, Intravenous, CONTINUOUS PRN sodium bicarbonate 8.4 % 150 mEq in sterile water (PF) infusion (fluid), Intravenous, Continuous PRN MEDICATIONS: Or Or 0.9% NaCl flush bag, Intravenous, CONTINUOUS PRN acetaminophen (Tylenol) tablet 650 mg, Oral, q6h PRN dextrose 10 % IV bolus, Intravenous, PRN dextrose 10 % IV bolus, Intravenous, PRN glucagon (Glucagen) injection 1 mg, Subcutaneous, PRN glucose (Diabetic Use) oral gel, Oral, PRN Recent Labs Component Name 05/15/24 0013 05/14/24 0403 05/13/24 1830 WBC 25.1* 21.8* 22.3* HGB 7.7* 7.7* 8.2* HCT 24.6* 25.1* 25.6* PLTCOUNT 334 298 318 Recent Labs Component Name 05/15/24 0013 05/13/24 1830 09/17/23 1247 SODIUM 132* - - POTASSIUM 4.1 - 3.8 CHLORIDE 103 - - CO2 22 - 26 BUN 31* - 18 CREATININE 1.69* - 0.75 GLUCOSE 235* - 119* CALCIUM 8.2* - 9.6 ALBUMIN 1.6* - - ALKPHOS - - 84 ALT - - 11 AST - - 12 EGFR 51* - >90 - = values in this interval not displayed. No results for input(s): INR in the last 53308 hours. No results for input(s): PT in the last 20284 hours. No results for input(s): PTT in the last 81873 hours. GENERAL: Conversant; NAD PSYCHE: Alert and oriented to person, place, and time. Appropriate affect noted. EYES: PERRLA; No scleral icterus. Conjuctiva moist NECK: Supple; no masses. Trachea midline. No thyromegaly Patient Vitals for the past 24 hrs: Temp Pulse Resp BP SpO2 05/15/24 0744 99.2 ??F (37.3 ??C) 92 18 120/70 -- 05/15/24 0430 (!) 100.2 ??F (37.9 ??C) 89 16 116/65 97 % 05/15/24 0240 (!) 102.2 ??F (39 ??C) -- -- -- -- 05/14/24 2336 (!) 102.1 ??F (38.9 ??C) 80 16 112/69 94 % 05/14/24 1950 99.8 ??F (37.7 ??C) 96 22 92/57 98 % 05/14/24 1649 99.2 ??F (37.3 ??C) 100 21 110/68 96 % 05/14/24 1133 98.8 ??F (37.1 ??C) 104 21 161/77 98 % Lower extremity VASCULAR: Dorsalis pedis pulses: Right 0/4 Left 0/4 Posterior tibial pulses: Right 0/4 Left 0/4 Patient shows: decreased hair growth thin atrophic skin No edema noted bilaterally LYMPHATICS: Lymphedema is noted bilaterally. No painful popliteal or inguinal nodes DERMATOLOGIC: Skin color and texture are: Ulceration located: Left foot There is a large open ulceration noted to the plantar aspect of left foot with minimal to no granular tissue noted. There is malodor noted. There is franchesca wound erythema noted. Erythema extends for posterior left foot to calf. There is malodor noted. There is moderate serous drainage noted. Size 8.0cmx 8.0cm x 1.0cm NEUROLOGIC: Protective Sensation is absent with 5.07 SWMF bilaterally at toes and MPJ levels Patient can not distinguish between sharp and dull. Proprioception is intact. MUSCULO: Manual Muscle strength is diminsihed in the anterior and posterior muscle groups bilateral feet andlower limbs. Blood Culture: Wound Culture: Arterial Doppler: Order Xray: COMPARISON: 03/06/2023 FINDINGS: No acute fracture or dislocation identified. Accessory ossicle at the base of the 5th metatarsal. No osseous cortical erosions. No radiopaque foreign body. Soft tissue gas within the hindfoot. Diffuse soft tissue swelling of the foot. IMPRESSION: Diffuse soft tissue swelling of the foot. Soft tissue gas within the hindfoot. No acute osseous abnormality. MRI: Ordered ASSESSEMENT: 1. Infection left foot 2. Osteomyelitis left foot 3. Diabetic neuropathic ulceration - 4. PVD 5. Neuropathy 6. Diabetes Infection left foot/ Osteomyelitis left foot - Cefepime (Maxipime) 2,000mg every 8 hours - Metronidazole 500mg every 8 hours - Vancomycin 1500mg every 12 hours Diabetic neuropathic ulceration left foot - Dressing instructions: Apply dry dressing to left foot wound consisting of 4x4s, abd pad, kerlix and dee bandage. Change dressing daily. - Weight bearing: Ambulate non weight bearing to left foot with walker. Neuropathy/ Type II Diabetes - Monitor blood glucose - Internal medicine following PLAN: Surgical I&D and debridement including bone if necessary this morning. Disucssed case with patient, explained that I am unsure how much tissue he will need to lose until we do the procedure. Explained that the goal will be to remove all abnormal, nonviable, infected tissue while taking cultures including tissue (bone) cultures and pathology. Patient relates understanding. Patient is scheduled for Incision and drainage left foot with debridement of wound including bone if necessary. Procedure scheduled for 05/15/24 in am. Thank you for asking [facility], Dr. Abby Quinn to participate in the care of your patient. Please call [phone] (Office), (Exchange), (Cell #, Call/ Text) with any questions or concerns. MENT SETTER HELPER * Tamara Gordon, OT - 05/15/2024 7:50 AM CST Occupational Therapy OT orders received, chart review completed. Attempted to see for OT evaluation today, however Pt unavailable due to plan for I&D of L foot this AM. Will attempt to see Pt at a later time/date as appropriate, Pt will required WB and activity orders prior to OT evaluation. YURIDIA Dunham [id number] MENT SETTER HELPER * Dalila Cerda, PT - 05/15/2024 7:12 AM CST Attempted to see patient for physical therapy. Unable to complete visit due to pt with plan for I&D of L foot this AM. PT will require WB and activity orders prior to evaluation. Will attempt to see patient at a later date. Dalila Garza, DPT [phone] MENT SETTER HELPER * Luis Daniel Starks RN - 05/14/2024 9:54 PM CST Problem: Fall Risk Goal: Fall risk and fall related injury risk are minimized (interventions related to the fall risk can be found in the flowsheet documentation) Outcome: Progressing Note: Patient will be free from injury Problem: Pain/Discomfort Goal: Patient exhibits reduced pain/discomfort as evidenced by pain scores Outcome: Progressing Note: Pain managed via MAR MENT SETTER HELPER * Monse Hernandez OT - 05/14/2024 1:04 PM CST Occupational Therapy Attempted to see Pt for OT initial eval at this time. Per chart review, awaiting podiatry consult, also need WB orders and activity orders prior to initiation of eval. Per PT note, has been contacted to add orders. Will re-attempt at a later time/date as schedule permits. Monse Roblero OTR/Steffi [phone] MENT SETTER HELPER * Zana Tolentino MD - 05/14/2024 1:01 PM CST Progress Note Admit Date: 05/13/2024 4:58 PM Hospital Day: 1 Clinical Course 43 y/o WM with h/o Morbid obesity, DM, Depression, GERD, BPH who was transferred from OSH 2/ infected L foot ulcer. Initial BP 138/76, HR 91, Temp 100.3, lab work remarkable for WBC 22.3K, hb 8.2, Cr 1.31 , Xray showed Diffuse soft tissue swelling of the foot. Soft tissue gas within the hindfoot. Started on abx, ID & podiatry consulted New Symptoms Patient denies chest pain, shortness of breath, abdominal pain, nausea, vomiting, diarrhea, constipation, urinary problems or leg pain. Data Vitals: 05/14/24 0109 05/14/24 0411 05/14/24 0813 05/14/24 1133 BP: 167/72 120/71 176/83 161/77 Pulse: 102 95 106 104 Resp: 20 20 21 21 Temp: 99.6 ??F (37.6 ??C) 98.4 ??F (36.9 ??C) 99.4 ??F (37.4 ??C) 98.8 ??F (37.1 ??C) SpO2: 96% 96% 90% 98% Weight: Height: Intake/Output Summary (Last 24 hours) at 05/14/2024 1301 Last data filed at 05/14/2024 0815 Gross per 24 hour Intake 934.06 ml Output 700 ml Net 234.06 ml My review of labs, imaging, notes and other tests shows no new significant findings. Recent Labs Component Name 05/14/24 0403 05/13/24 1830 09/17/23 1247 WBC 21.8* 22.3* 7.6 HGB 7.7* 8.2* 11.7* HCT 25.1* 25.6* 33.8* PLTCOUNT 298 318 189 Recent Labs Component Name 05/14/24 0403 05/13/24 1830 09/17/23 1247 SODIUM 133* 133* - POTASSIUM 4.1 3.8 3.8 CHLORIDE 106 105 - CO2 20* 19* 26 BUN 28* 30* 18 CREATININE 1.38* 1.32* 0.75 GLUCOSE 185* 186* 119* CALCIUM 8.2* 8.3* 9.6 MEDICATIONS FOR CURRENT ENCOUNTER: SCHEDULED MEDICATIONS: atorvastatin (Lipitor) tablet 40 mg, Oral, AT BEDTIME buPROPion XL 24hr (Wellbutrin-XL) tablet 150 mg, Oral, QDAY cefepime (Maxipime) 2,000 mg in 0.9% NaCl IV 50 mL IVPB, Intravenous, q8h enoxaparin (Lovenox) injection 40 mg, Subcutaneous, BID famotidine (Pepcid) tablet 40 mg, Oral, AT BEDTIME ferrous sulfate tablet 325 mg, Oral, QDAY AFTER LUNCH gabapentin (Neurontin) capsule 300 mg, Oral, TID insulin aspart (NovoLOG) pen 0-4 Units, Subcutaneous, AT BEDTIME insulin aspart (NovoLOG) pen 0-6 Units, Subcutaneous, TID WC insulin aspart (NovoLOG) pen 4 Units, Subcutaneous, TID WC insulin glargine (Lantus) pen 15 Units, Subcutaneous, AT BEDTIME metroNIDAZOLE (Flagyl) tablet 500 mg, Oral, q8h pantoprazole EC (Protonix) tablet 40 mg, Oral, QDAY tamsulosin (Flomax) capsule 0.4 mg, Oral, QDAY vancomycin (Vancocin) 1,500 mg in 530 mL IVPB, Intravenous, q12h vancomycin (Vancocin) IV dose per pharmacy, Does not apply, DIRECTED CONTINUOUS MEDICATIONS: 0.9% NaCl flush bag, Intravenous, CONTINUOUS PRN sodium bicarbonate 8.4 % 150 mEq in sterile water (PF) infusion (fluid), Intravenous, Continuous PRN MEDICATIONS: Or Or 0.9% NaCl flush bag, Intravenous, CONTINUOUS PRN dextrose 10 % IV bolus, Intravenous, PRN dextrose 10 % IV bolus, Intravenous, PRN glucagon (Glucagen) injection 1 mg, Subcutaneous, PRN glucose (Diabetic Use) oral gel, Oral, PRN Exam General appearance: alert, cooperative, no distress Heart: regular rhythm, normal S1 and S2, without murmurs, rubs or gallops Lungs: breath sounds normal and symmetric; no rales or wheezes Abdomen: soft without mass, non-tender, with normal bowel sounds Extremities: no clubbing, cyanosis or edema AYANNA; L foot wrapped with clean dressing Assessment and Plan # Sepsis 2/2 infected L diabetic foot ulcer (POA) == Xray showed Diffuse soft tissue swelling of the foot. Soft tissue gas within the hindfoot. Woundcx, MRI & MONO ordered == Switch abx to cefepime, flagyl vancomycin, monitor cbc / Tmax, ID & podiatry consulted # CHRISTIE (non oliguric) likely multifactorial; sepsis, pre renal , POA == Renal USS, urine Na, urine Cr, urine protein/cr ordered, == Start bicarb gtt, monitor BMP, avoid nephrotoxic meds, ( lasix & ARB held) # Anemia of chronic dx, POA == Hb stable, monitor h/h & transfuse PRBC if < 7 # DM, POA == BG elevated, Increase lantus to 15U, continue SSI, diabetic diet # GERD, POA == Continue PPI # Depression, POA == Continue Wellbutrin # BPH, POA == Continue Flomax DVT prophylaxis Lovenox D/w RN Zana Tolentino MD,MPH 05/14/2024 MENT SETTER HELPER * Murali Live, PharmD - 05/14/2024 10:40 AM CST Images from the original note were not included. Pharmacy Monitoring ACTIVE CONSULTS TO PHARMACY/DISEASE STATE MONITORING Pharmacy Consult: Vancomycin Management 43 year old male transferred from OSH ordered vanc per Rx. Patient was given a loading dose of Vancat OSH. Patient is also on cefepime and flagyl. VANCOMYCIN MONITORING Indication: Cellulitis/ulceration diabetic with Goal Level: AUC 400-600 Ordered a random vanc level to assess. Random was 14.5 mcg/ml (was run on blood that was drawn at 0403.) Recent Labs Component Name 05/14/24 0403 05/13/24 1830 09/17/23 1247 CREATININE 1.38* 1.32* 0.75 BUN 28* 30* 18 WBC 21.8* 22.3* 7.6 VANCORNDM 14.5 - - Subjective / Objective A/P: Since random vanc level was less than 15, will start maintenance dose of 1500 mg q 12 hours. It is noted that patient is having acute renal issues, so will check a peak and trough with the firstdose. Will continue to monitor and adjust as needed. Molly Pablo, Pharm.D Ext [phone] ADDENDUM: Vancomycin peak level came back at 1706 on 05/14 with a level of 25.0 mcg/ml. Vancomycin trough level came back at 0013 on 05/15 with a level of 18.2 mcg/ml. Of note, patient was most likely not at steady state for these levels. Will continue the current regimen. The new estimated AUC based on this regimen is 534. Predicted vancomycin trough level is 17.4 mcg/ml. Murali Live PharmD 05/15/2024 2:14 AM MENT SETTER HELPER * Mignon Alvarez LPN - 05/14/2024 10:01 AM CST Problem: Fall Risk Goal: Fall risk and fall related injury risk are minimized (interventions related to the fall risk can be found in the flowsheet documentation) Outcome: Progressing Problem: Pain/Discomfort Goal: Patient exhibits reduced pain/discomfort as evidenced by pain scores Outcome: Progressing MENT SETTER HELPER * Annamarie Beyer PT - 05/14/2024 8:48 AM CST PT orders noted. Pt has podiatry consult pending (will need weight bearing orders) and also needs activity orders. Message sent to Dr. Tolentino via [employer] secure chat. Will attempt again at a later date. MARIUSZ De Luna [employer] [phone] MENT SETTER HELPER documented in this encounter H&P Notes * Nicanor Richter MD - 05/13/2024 8:26 PM CST History and Physical - Hospitalist Date of Admission: 05/13/2024 Patient's Primary Care Physician: Nguyễn Bingham MD Name: Rene Hyatt Age: [age] year old Sex: male Chief Complaint Foot pain History of Present Ilness 43yo M noncompliant Pt is a transfer from [facility]. Pt preseneted with LLE wound. He hasbeen transferred for Podiatry services. Pt has been admitted for further evaluation and treatment. Pt seen and examined by me in his room 363. No fever. No chest pain. Pt tolerating PO. No new issuesas per RN. Pt rates his pain as 7/10 intensity, sharp in nature. No past medical history on file. Past Surgical History: Procedure Laterality Date Cyst Removal 2022 scrotum No family history on file. Social History Occupational History Not on file Tobacco Use Smoking status: Never Smokeless tobacco: Never Vaping Use Vaping status: Never Used Substance and Sexual Activity Alcohol use: Never Drug use: Never Sexual activity: Never Medications Prior to Admission Medication Sig Dispense Refill acetaminophen (Tylenol) 500 MG tablet Take 1 (one) tablet by mouth every 6 hours as needed Alcohol Swabs (Alcohol Prep) PADS atorvastatin (Lipitor) 20 MG tablet buPROPion XL 24hr (Wellbutrin-XL) 150 MG tablet Take 1 (one) tablet by mouth once daily 90 tablet 4 calcium carbonate (Os-Wilfredo 500) 1250 (500 Ca) MG tablet Take 1 (one) tablet by mouth once daily cephalexin (Keflex) 500 MG capsule (Patient not taking: Reported on 10/08/2023) Cholecalciferol 1.25 MG (87690 UT) Take 50,000 Units by mouth Two times a week famotidine (Pepcid) 40 MG tablet Take 1 (one) tablet by mouth at bedtime ferrous sulfate 325 (65 FE) MG tablet furosemide (Lasix) 20 MG tablet gabapentin (Neurontin) 300 MG capsule Take 1 (one) capsule by mouth 3 times daily 270 capsule 3 insulin lispro (HumaLOG;ADMelog) 100 UNIT/ML pen Inject 10 (ten) Units subcutaneously 3 times dailybefore meals Lancets (ONETOUCH DELICA PLUS 33G EXTRA FINE LANCET) Lantus SoloStar pen losartan (Cozaar) 25 MG tablet metFORMIN (Glucophage) 1000 MG tablet Take 0.5 (one-half) tablet by mouth 2 times daily oyster shell calcium 500 MG tablet pantoprazole EC (Protonix) 40 MG tablet tamsulosin (Flomax) 0.4 MG capsule Take 1 (one) capsule by mouth once daily At the same time every day after a meal. 90 capsule 4 TRUEplus Pen Rentz 31G X 5 MM needle Trulicity 1.5 MG/0.5ML injection vitamin D, ergocalciferol, (Drisdol) 1.25 MG (27858 UT) capsule No Known Allergies Review of Systems: Constitutional: No fever, no chills, no unexplained weight changes. Eyes: No blurry vision. No diplopia. HEENT: No cough, no sore throat, no recent changes in hearing. Cardiac: No chest pain, no shortness of breath. Respiratory: No cough, no hemoptysis. GI: No nausea, no vomiting, no diarrhea, no constipation. : No dysuria, no frequency, no burning. Endocrine: No polyuria, no polydipsia, no abnormal temperature sensitivity. Exam Vitals: 05/13/24 1705 BP: 138/76 Pulse: 91 Resp: 20 Temp: 98.7 ??F (37.1 ??C) SpO2: 95% Constitutional: Alert and oriented to time, place and person, no apparent distress. HEENT: Normocephalic, atraumatic. Extraocular muscles intact. Mucous membranes moist. Neck: Supple, no lymphadenopathy. Heart: S1, S2 heard, regular rate and rhythm, no murmur. Lungs: Clear to auscultation bilaterally, no wheezes or rhonchi. Abdomen: Soft, bowel sounds heard, no rigidity, no guarding, nontender. Extremities: dressing noted over the LLE Neurologic: Cranial nerves 2-12 are grossly intact. No sensory or motor deficits. Back : supple, no CVA tenderness Psych : Pt has adequate eye contact, doesn't appear to be withdrawn. Data Results for orders placed or performed during the hospital encounter of 05/13/24 (from the past 24 hour(s)) BASIC METABOLIC PANEL (CALCIUM TOTAL) Result Value Ref Range Glucose 186 (H) 70 - 99 mg/dL Sodium 133 (L) 136 - 145 mmol/L Potassium 3.8 3.5 - 5.1 mmol/L Chloride 105 98 - 107 mmol/L CO2 19 (L) 22 - 29 mmol/L Calcium 8.3 (L) 8.4 - 10.4 mg/dL Anion Gap 9 6 - 16 mmol/L BUN 30 (H) 5.3 - 18.7 mg/dL Creatinine 1.32 (H) 0.72 - 1.25 mg/dL eGFR by CKD-EPI 68 (L) >=90 mL/min/1.73 m2 CBC W AUTO DIFFERENTIAL Result Value Ref Range WBC 22.3 (H) 4.0 - 10.7 x10E9/L RBC Count 2.90 (L) 4.30 - 5.80 x10E12/L Hemoglobin 8.2 (L) 13.3 - 17.5 g/dL Hematocrit 25.6 (L) 38.7 - 51.1 % MCV 88.3 80.0 - 98.0 fL MCH 28.3 26.7 - 33.6 pg MCHC 32.0 31.7 - 36.3 g/dL RDW-CV 13.4 11.3 - 14.8 % Platelet Count 318 150 - 420 x10E9/L MPV 8.9 7.8 - 11.4 fL Neutrophil % 80.9 (H) 41.0 - 74.0 % Lymphocyte % 8.7 (L) 17.0 - 47.0 % Monocyte % 7.6 3.0 - 11.0 % Eosinophil % 0.4 0.0 - 7.0 % Basophil % 0.4 0.0 - 1.6 % Immature Granulocytes % 2.0 (H) 0.0 - 1.0 % Neutrophil Absolute 18.03 (H) 1.60 - 7.50 x10E9/L Lymphocyte Absolute 1.94 1.00 - 4.40 x10E9/L Monocyte Absolute 1.70 (H) 0.15 - 1.00 x10E9/L Eosinophil Absolute 0.10 0.00 - 0.60 x10E9/L Basophil Absolute 0.08 0.00 - 0.13 x10E9/L Assessment and Plan :} 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 - Pt will be treated with broad spectrum antibiotics. - Podiatry, ID & Wound care consulted :} Acute Renal Failure: - Pt's renal function is worse compared to his baselin. - Most likely pre-renal secondary to dehydration and poor PO intake - Pt will be started on IVF. - Will continue to monitor the renal function. - Will avoid nephrotoxins. :} DM type 2, uncontrolled: Will hold the Pt's oral medications while in the hospital. Pt will be put on basal/bolus regimen at the doses as indicated on the active Medication list. Will continue to monitor the BS. :} Hypertension. Will continue the meds as indicated on the active med list. Will continue to monitor the blood pressure and adjust the meds as needed. :} Anemia, normocytic; Anemia of Chronic disease : Will continue to monitor the Pt's Hb/Hct. Will consider transfusion if the Hb drops below 7. :} Anxiety and Depression : Stable. Will continue the Pt's home dose of antidepressants/anxiolytics. :} Diabetic neuropathy: Will continue Pt's home dose of gabapentin. :} GERD: Will continue the Pt's home dose of PPI. :} BPH: Will continue the Pt's home med Flomax. :} Obesity, Class II : Pt has been counseled and encouraged to make lifestyle changes. :} Non-compliance : Pt educated about the importance of being compliant and seeing a PCP regularly.Pt voiced understanding. :} DVT Prophylaxis : will be done with Lovenox. Nicanor Richter MD 05/13/2024 8:26 PM MENT SETTER HELPER documented in this encounter Consult Notes * Emmanuelle Barragan RN - 05/25/2024 1:01 PM CSTAssociated Order(s): IP CONSULT TO WOUND NURSE See wound and skin note dated 05/25/24. Daily wound/skin care to scrotum to be assumed by primary nursing staff. Wound nurse will not follow at this time. Reconsult if skin/wounds worsen. Emmanuelle Barragan RN 05/25/2024 1:01 PM MENT SETTER HELPER * Ursula Grider RN - 05/24/2024 11:30 AM CSTAssociated Order(s): IP CONSULT TO WOUND NURSE See Wound/Skin care note dated 05/24/24 Ursula Grider RN 05/24/2024 1:17 PM MENT SETTER HELPER * Wilfredo Carlton, ARYAN - 05/24/2024 10:23 AM CST Chart review and patient assessment completed prior to ordered PICC insertion. PICC is vascular access device of choice due to: __X__ Need for IV medication after discharge from hospital ____ Pt has medications ordered requiring central tip venous access ____ Pt has inadequate peripheral vessels to support delivery of needed IV medications ____ Pt has inadequate peripheral vessels to support frequency of needed blood draws Patient physical assessment completed. Informed consent obtained after risks, benefits, alternatives explained. PICC line placed by Vascular Access Team as requested. All internal stiffening stylets and/or guidance wires removed without resistance. Estimated blood loss less than 10 ml, hemostasis achieved at insertion site, sterile dressing applied. Each lumen of PICC flushed with normal saline with positive blood return. Provided patient education See Doc Flow sheets for further details. MENT SETTER HELPER * Javier Alcazar RD/CAYETANO - 05/23/2024 2:36 PM CSTAssociated Order(s): IP CONSULT TO NUTRITIONAL SERV CLINICAL NUTRITION RD consulted for negative pressure dressing application. Patient already being followed by clinical nutrition, see note from Mary Roach on 05/19 for most recent assessment details. S/p repeat debridement and graft application on 05/20 for food wound.Patient receiving a regular diet, noted patient was previously receiving consistent CHO/cardiac diet at previous RD assessment. Noted per nephrology notes, recommending low potassium diet due to hyperkalemia. K 5.3 today. POC BG range past 24 hours: 156-233 mg/dL. Changed diet order from regular to75 gm/meal consistent CHO and low potassium diet. Patient receiving Bao BID for wound healing, will continue at this time.Bao (Wound Healing Supplement) provides 90 calories, 14 grams amino acid (7 gm L- arginine & 7 gm L-glutamine), 2.5 grams protein (hydrolyzed collagen), 8 grams of carb per serving along with 9.5mg Zinc, 300mg Vit C, 15 mg Vitamin E, and 1.2 mcg Vitamin B12. Recommendation/Plan: Diet changed to consistent CHO, low potassium diet Continue Bao BID Med/Surg History and Clinical Diagnoses: infected DM foot ulcer, ARF, DM, HTN, Anemia, Anxiety/depression, GERD, BPH, obesity, non compliance Height: 200.7 cm (6' 7 ) Admission weight: Weight: (!) 183.9 kg (405 lb 6.4 oz) (05/13/242212) Most recent weight: Weight: (!) 183.9 kg (405 lb 6.4 oz) (05/13/242212) Current diet order: Consistent Carb Standard;Other (Comments) (low potassium) P.O.Intake for the past 72 hrs: % Meal Taken Av.6 % Min: 25 % Max: 100 % Current supplement order: Bao BID Supplement(s) Consumed- Last 48 hours None Estimated Needs: KCAL: 7351-2844 kcals (11-14 kcal/kg of ABW) Protein (g): 138-183 g of PRO (1.5-2.0 g of PRO/kg of IBW) Labs reviewed. Stools: Last BM Prior to Admission (Date): 05/13/24 Stools (# of stools): 1 (05/23/24 0436) Stool Appearance : Soft (05/23/24 0436) Stool Amount: Medium (05/23/24 0436) Education needed: Wound Healing Education Provided: Yes;Handout Provided (05/14/24 1200) Expected level of compliance: Fair Monitor per nutrition guidelines. Javier Vincent MS, RD/LD Ascom [phone] MENT SETTER HELPER * Latanya Sims, LEAD APPLIER - 05/23/2024 9:36 AM CSTAssociated Order(s): IP CONSULT TO HORSE STUD WORKER; IP CONSULT TO HORSE STUD WORKER SOCIAL WORK CONSULT NOTE Reason for Consult: 1. From RN negative pressure therapy/discharge planning. SW already following for this. 2. From RN for food resources. Discharge Plan Disposition: aiming for AR/[facility] following. Needs to be cleared medically first and auth submitted for thru his [place] Medicaid. Back up is SNF/[employer]. Transportation: [employer]. Anticipated Discharge Date: TBD Emergency Contacts: Extended Emergency Contact Information Primary Emergency Contact: CLARA HYATT Relation: Mother Comments: SW added food voucher to [facility] today. SW also sent a referral to [facility]. [facility] reach out to patient norris. Thanks Latanya Sims LCSW 05/23/2024 9:38 AM Extensions: [phone] or [phone] MENT SETTER HELPER * Kaci Jenkins RD/LD - 05/21/2024 9:45 AM CSTAssociated Order(s): IP CONSULT TO NUTRITIONAL SERV Consult received in error. Pt is not currently ventilated. Kaci MULLER, [facility] 05/21/2024 9:46 AM Ascom [id number] * Anca Vines RN - 05/18/2024 9:47 AM CSTAssociated Order(s): IP CONSULT TO PHYSICAL MED AND REHAB [facility] following. Will continue to follow for medical stability as well as ability to tolerate/participate in two therapies for possible admission acute rehab upon DC. UPDATE: ins auth was submitted. Thank you for the referral. Anca Vines, RN, BSN Clinical Liaison [facility] [phone] MENT SETTER HELPER Latanya Joiner LCSW - 05/16/2024 11:34 AM CSTAssociated Order(s): IP CONSULT TO HORSE STUD WORKER SOCIAL WORK CONSULT NOTE Reason for Consult: per MDR, May need [facility] SNF vs AR vs Home. Depends on what [employer] covers. SW will contact to verify. 43 year old male. [employer] [place] insurance. Arrived at [facility] due to the following: noncompliant Pt is a transfer from [facility]. Pt preseneted with LLE wound. He has been transferred for Podiatry services. Pt has been admitted for further evaluation and treatment. Dx: infected diabetic left foot ulcer, ARF, DMII, HTN, Anemia, Anxiety, Depression, Diabetic neuropathy, GERD BPH, Obesity, weak and debilitated. Discharge Plan Disposition: TBD. Per MDR. Home vs SNF or AR if insurance covers. SW called [employer] contact personand left a VM to see if his plan covers either AR or SNF. SW spoke with rep. They suggested just calling plan number. DIPIKA checked with a [facility] and [facility] do [facility] [place] [facility] Some around his area would be: [facility] Transportation: ambulance thru [employer]. Anticipated Discharge Date: TBD Emergency Contacts: Extended Emergency Contact Information Primary Emergency Contact: CLARA HYATT Relation: Mother *Room visit with patient. His mother, Clara, really is not able to be his emergency contact. She has advanced MS and he is her FT caregiver at home. Right now he said she's staying at [facility] and has been there the past 3 or 4 days. Sounds like his plan is for her to only temp be there while he takes care of his health. He was tearful a few times. Said when she was dx with MS in 1997 he became her care since then. He's extremely close to her. Was tearful when he said he doesn't knowwhat he's going to do when she dies. The home they live in was condemned a few years ago after his father in 2020. Things just really went downhill. Rene and his mother put about $20,000 into the home to bring it back up to code. He claims now the home is fine and no issues. He said he's had poor health his entire life. Has almost a few times. 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 He is an only child. I tried to get another emergency contact for him and he said Vianey or Kashif the pharmacy they use but he doesn't want her put down or put her in that position. His motherhas a sister named Rosaline Worley who lives in [place]. Neither he nor his mother want anything to do with her or that side of the family due to a 2 million dollar inheritance that was stolen within the family. He said he's had HH a long time ago that came to a hotel he was staying at but he does not recall the name of the company. His mother has Medicare and . I brainstormed with him about getting more help to come in and that he CANNOT do this all on his own. He's never looked into the MS society, he's never seen about mom being screened for VA home care. Both she and her [place]. He's usually up ad peter without any device at home. But very minimal. Only to change his mother and cook, etc. He uses a ella lift to transfer her. He still drives. Has about 5 or 6steps to get into the house but once in all is on one level. He takes the laundry to the laundry mat since he can't go down in the basement. He's never looked into private duty to come in and help. He said it's expensive; I explained again, he will seriously decline even more if something doesn't ch lauren. He agrees. We discussed possible SNF vs AR. He's open to whatever. I will see what his insurance will cover. He may even be eligible for some home care thru [employer] [address]. His cell: [phone]. I asked if he has SSD he does not. Said he's worked only a few jobs in his life but most of his life has been dedicated to his mother. I will provide him some resources so he can look into SSD to see if he qualifies. The house is paid for. He is on his mother's bank account so he helps her pay what bills they do have. I empathized with him and told him he sounds like a wonderful son who is really trying hard but needs some more help to come in for sure. Comments: SW will add resources on AVS for private duty in [place], MS Society contact, SSD information,VA home care contact info for his mother. Latanya Sims LCSW 05/16/2024 12:24 PM Extensions: [phone] or [phone] MENT SETTER HELPER * Shilpi Schmitt RN - 05/16/2024 11:32 AM CSTAssociated Order(s): IP CONSULT TO VASCULAR ACCESS NURSE Verbal/non-verbal indicated consent obtained prior to starting procedure. After site cleaned with Chloraprep, peripheral IV placed using ultrasound assessment and ultrasoundneedle guidance. Limited viable peripheral vessels visualized or palpated without ultrasound. See doc flowsheet for details. The Vascular Access Team has placed a peripheral IV called an Accucath. This IV is placed with a guidewire causing less insertion trauma, (guidewire removed intact). Studies have shown these IVs can dwell longer without complications. This IV is flushed and cared for like a normal peripheral IV andis power injectable. If the IV site is complication free, Accucath can dwell up to 30 days per business process modeler's recommendation. Change dressing prn or at least weekly. Shilpi Schmitt RN 05/16/2024 11:33 AM MENT SETTER HELPER * Mary Roach, JR/CAYETANO - 05/16/2024 10:02 AM CSTAssociated Order(s): IP CONSULT TO NUTRITIONAL SERV CLINICAL NUTRITION Pt evaluated for consult for negative pressure dressing. Pt being followed by Clinical Nutrition, please see chart note from 05/14 for details. S/p Excisional debridement of left foot wound skin, subcutaneous level, muscle and bone where bone was the deepest level of debridement 05/15. Pt is on Cardiac, Consistent Carb diet and receiving Bao BID. Bao (Wound Healing Supplement) provides 90 calories, 14 grams amino acid (7 gm L-arginine & 7 gm L-glutamine), 2.5 grams protein (hydrolyzed collagen), 8 grams of carb per serving along with 9.5mg Zinc, 300mg Vit C, 15 mg Vitamin E, and 1.2 mcg Vitamin B12. PO intake 50% of meals. Pt will benefit from ONS post discharge to promote healing. Recommend adding MVI with minerals, vitamin C and ZnSO4 supplementation too. Will follow per protocol. Recommendation/Plan: Continue with Cardiac, Consistent Carb diet Send Bao BID Med/Surg History and Clinical Diagnoses: infected DM foot ulcer, ARF, DM, HTN, Anemia, Anxiety/depression, GERD, BPH, obesity, non compliance Height: 200.7 cm (6' 7 ) Admission weight: Weight: (!) 183.9 kg (405 lb 6.4 oz) (05/13/242212) Most recent weight: Weight: (!) 183.9 kg (405 lb 6.4 oz) (05/13/242212) Current diet order: Cardiac Standard;Consistent Carb Standard P.O.Intake for the past 72 hrs: % Meal Taken Av % Min: 50 % Max: 50 % Current supplement order: Bao BID Supplement(s) Consumed- Last 48 hours None Estimated Needs: KCAL: 3900-2595 kcals (11-14 kcal/kg of ABW) Protein (g): 138-183 g of PRO (1.5-2.0 g of PRO/kg of IBW) Labs reviewed. Stools: Last BM Prior to Admission (Date): 05/13/24 Stools (# of stools): 1 (05/15/24938) Stool Appearance : Loose (05/15/24938) Stool Amount: Medium (05/15/24938) Education needed: Wound Healing Education Provided: Yes;Handout Provided (05/14/24 1200) Expected level of compliance: Fair Monitor per nutrition guidelines. Mary Vincent RD/CAYETANO, PhD 05/16/2024 10:06 AM Ascom [id number] * Katerina Weaver DO - 05/16/2024 9:00 AM CSTAssociated Order(s): IP CONSULT TO NEPHROLOGY Renal Initial Consult Note Name: Rene Hyatt Age: [age] year old Race: Sex: male Patient's Primary Care Physician: Nguyễn Bingham MD Physician Requesting Consultation: Zana Tolentino MD Consulting Physician: Dr Katerina Weaver Reason For Consult: CHRISTIE Chief Complaint:L Foot Wound History of Present Illness Mr. Hyatt is a 43 y/o male with morbid obesity, T2DM, and BPH who presented to [facility] for L foot ulcer for further evaluation. 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 On arrival, creatinine was at reported baseline of 1.32 with current trend up to 2.01 for which nephrology is consulted. Patient does not report any issues with urination. He underwent kidney ultrasound on 05/14 that showed no renal parenchymaldisease. He does not report any hematuria or difficulty urinating. He has had episodes of fevers but has remained hemodynamically stable. Record Review: Careeverywhere- Reviewed SHx: Non smoker, no ETOH use FHx: Negative for dialysis Review of Systems: All other systems reviewed and are negative Past Medical History: Reviewed,and is as documented below No past medical history on file. Past Surgical History: Procedure Laterality Date Cyst Removal 2022 scrotum DEBRIDEMENT Left 05/15/2024 Left; IRRIGATION/DEBRIDEMENT FOOT/ANKLE No family history on file. Social History Occupational History Not on file Tobacco Use Smoking status: Never Smokeless tobacco: Never Vaping Use Vaping status: Never Used Substance and Sexual Activity Alcohol use: Never Drug use: Never Sexual activity: Never Physical Examination: Vitals Vitals: 05/15/24 1941 05/16/24 0012 05/16/24 0414 05/16/24 0747 BP: 147/82 120/72 110/66 118/70 Pulse: 103 95 94 91 Resp: 20 16 16 17 Temp: 99.8 ??F (37.7 ??C) (!) 100.4 ??F (38 ??C) 99.7 ??F (37.6 ??C) 100 ??F (37.8 ??C) SpO2: 95% 94% 98% 97% Weight: Height: General appearance: alert, cooperative, no distress, obese Head: normocephalic, without trauma Resp : No crepitation Heart: regular rhythm, normal S1 and S2, systolic murmur Abdomen: soft without mass, non-tender, Extremities: Bilateral LE edema, erythema of LLE with tenderness to the touch Neurologic: mental status normal; alert and oriented X 3; Skin:No rashes noted Home Medications- Reviewed and Documented below Medications Prior to Admission Medication Sig Dispense Refill acetaminophen (Tylenol) 500 MG tablet Take 1 (one) tablet by mouth every 6 hours as needed Alcohol Swabs (Alcohol Prep) PADS atorvastatin (Lipitor) 20 MG tablet buPROPion XL 24hr (Wellbutrin-XL) 150 MG tablet Take 1 (one) tablet by mouth once daily 90 tablet 4 calcium carbonate (Os-Wilfredo 500) 1250 (500 Ca) MG tablet Take 1 (one) tablet by mouth once daily cephalexin (Keflex) 500 MG capsule (Patient not taking: Reported on 10/08/2023) Cholecalciferol 1.25 MG (25715 UT) Take 50,000 Units by mouth Two times a week famotidine (Pepcid) 40 MG tablet Take 1 (one) tablet by mouth at bedtime ferrous sulfate 325 (65 FE) MG tablet furosemide (Lasix) 20 MG tablet gabapentin (Neurontin) 300 MG capsule Take 1 (one) capsule by mouth 3 times daily 270 capsule 3 insulin lispro (HumaLOG;ADMelog) 100 UNIT/ML pen Inject 10 (ten) Units subcutaneously 3 times dailybefore meals Lancets (ONETOUCH DELICA PLUS 33G EXTRA FINE LANCET) Lantus SoloStar pen losartan (Cozaar) 25 MG tablet metFORMIN (Glucophage) 1000 MG tablet Take 0.5 (one-half) tablet by mouth 2 times daily oyster shell calcium 500 MG tablet pantoprazole EC (Protonix) 40 MG tablet tamsulosin (Flomax) 0.4 MG capsule Take 1 (one) capsule by mouth once daily At the same time every day after a meal. 90 capsule 4 TRUEplus Pen Rentz 31G X 5 MM needle Trulicity 1.5 MG/0.5ML injection vitamin D, ergocalciferol, (Drisdol) 1.25 MG (01401 UT) capsule Current Medications-Reviewed and Documented below atorvastatin (Lipitor) tablet 40 mg, Oral, AT BEDTIME buPROPion XL 24hr (Wellbutrin-XL) tablet 150 mg, Oral, QDAY cefepime (Maxipime) 2,000 mg in 0.9% NaCl IV 50 mL IVPB, Intravenous, q8h enoxaparin (Lovenox) injection 40 mg, Subcutaneous, BID ferrous sulfate tablet 325 mg, Oral, QDAY AFTER LUNCH gabapentin (Neurontin) capsule 300 mg, Oral, TID insulin aspart (NovoLOG) pen 0-4 Units, Subcutaneous, AT BEDTIME insulin aspart (NovoLOG) pen 0-6 Units, Subcutaneous, TID WC insulin aspart (NovoLOG) pen 4 Units, Subcutaneous, TID WC insulin glargine (Lantus) pen 20 Units, Subcutaneous, AT BEDTIME metroNIDAZOLE (Flagyl) tablet 500 mg, Oral, q8h pantoprazole EC (Protonix) tablet 40 mg, Oral, QDAY tamsulosin (Flomax) capsule 0.4 mg, Oral, QDAY vancomycin (Vancocin) 1,500 mg in 530 mL IVPB, Intravenous, q12h vancomycin (Vancocin) IV dose per pharmacy, Does not apply, DIRECTED 0.9% NaCl flush bag, Intravenous, CONTINUOUS PRN 0.9% NaCl infusion, Intravenous, Continuous Or Or 0.9% NaCl flush bag, Intravenous, CONTINUOUS PRN acetaminophen (Tylenol) tablet 1,000 mg, Oral, Once PRN acetaminophen (Tylenol) tablet 650 mg, Oral, Once PRN acetaminophen (Tylenol) tablet 650 mg, Oral, q6h PRN atropine injection 0.4 mg, Intravenous, Once PRN dextrose 10 % IV bolus, Intravenous, PRN dextrose 10 % IV bolus, Intravenous, PRN droPERidol (Inapsine) injection 0.625 mg, Intravenous, Once PRN glucagon (Glucagen) injection 1 mg, Subcutaneous, PRN glucose (Diabetic Use) oral gel, Oral, PRN HYDROmorphone (Dilaudid) injection 0.5 mg, Intravenous, q4h PRN insulin regular human 1 unit/mL injection, Intravenous, PRN meperidine (Demerol) injection 12.5 mg, Intravenous, Once PRN ondansetron (Zofran) injection 4 mg, Intravenous, Once PRN ondansetron (Zofran) injection 4 mg, Intravenous, Once PRN oxyCODONE (immediate release) (Roxicodone) tablet 5 mg, Oral, Once PRN Allergies to Medications and Reactions No Known Allergies Laboratory Data I have personally reviewed the following labs: Recent Labs Component Name 05/16/24 0309 05/15/24 0013 05/14/24 0403 WBC 21.7* 25.1* 21.8* HGB 7.3* 7.7* 7.7* HCT 23.6* 24.6* 25.1* PLTCOUNT 300 334 298 Recent Labs Component Name 05/16/24 0309 05/15/24 0013 05/14/24 0403 SODIUM 133* 132* 133* POTASSIUM 4.2 4.1 4.1 CHLORIDE 107 103 106 CO2 19* 22 20* BUN 35* 31* 28* CREATININE 2.01* 1.69* 1.38* GLUCOSE 185* 235* 185* CALCIUM 8.0* 8.2* 8.2* No results for input(s): MAGMGDL in the last 64074 hours. Assessment and Plan: #CHRISTIE -Unclear baseline creatinine due to limited values but likely no prior issues -Currently uptrending creatinine to 2.01 -Etiology for CHRISTIE may be due to infection-related GN vs ATN from sepsis due to L foot infection vs less likely obstruction all in setting of RAAS blockade (home medication losartan) -Renal ultrasound with no acute pathology or evidence of renal parnechymal chronic disease -Initial urine Na < 20 indicative of possible volume depletion ---Obtain UA and urine lytes ----Obtaine C3/C4 for possible immune mediated component ----Avoid hypotension and nephrotoxic medications ---Continue fluid administration at present ---Bladder scan to ensure patient not retaining; may be able to increase flomax to 0.8mg daily if needed ---Repeat urine lytes for further assessment ----Continue treatment of infectious process ---Continue holding ARB Thank you for allowing us participate in the care of this patient. Katerina Weaver DO Office:[phone] Exchange: MENT SETTER HELPER * Latanya Sims, LEAD APPLIER - 05/16/2024 8:27 AM CSTAssociated Order(s): IP CONSULT TO HORSE STUD WORKER SOCIAL WORK CONSULT NOTE Reason for Consult: from RN. Negative pressure therapy. SW signing off. Does not follow for negative pressure therapy. If SW services are needed again, please feel free to put in a new consult. Thanks! Thanks Latanya Sims LCSW 05/16/2024 8:29 AM Extensions: [phone] or [phone] MENT SETTER HELPER * Emmanuelle Barragan RN - 05/16/2024 7:21 AM CSTAssociated Order(s): IP CONSULT TO WOUND NURSE See wound and skin note dated 05/16/24. Emmanuelle Barragan RN 05/16/2024 7:21 AM MENT SETTER HELPER * Lesa Rodríguez MD - 05/14/2024 5:14 PM CSTAssociated Order(s): IP CONSULT TO INFECTIOUS DISEASES Infectious Diseases Consult Note Patient's Primary Care Physician: Nguyễn Bingham MD Reason for Consultation: foot ulcer Referring Physcian: No admitting provider for patient encounter. Name: Rene Hyatt Age: [age] year old 1 Chief Complaint/History of Present Illness HPI: Rene Hyatt is a 43 year old White/Caucasianmale Dm, htn, anemia, anxiety, depression, bph, transfer from [facility]. Pt preseneted with LLE wound on 05/13 so ID and pods consulted. Labs woyh christie. Objective: Review of Systems General: no fatigue/fever/chills Skin: no rashes/lesions Eyes: no vision problems/no conjunctival lesions HENT: no oral lesion/no hearing problems Respiratory: no cough/sob Cardiovascular: no cp/palpitations Gastrointestinal: no nausea/diarrhea Genitourinary: no dysuria/hematuria Musculoskeletal: no joint pain/no muscle pain Neurological: no rico/seizures Psych: no depression/anxiety No past medical history on file. Past Surgical History: Procedure Laterality Date Cyst Removal 2022 scrotum Social History Tobacco Use Smoking status: Never Smokeless tobacco: Never Vaping Use Vaping status: Never Used Substance Use Topics Alcohol use: Never Drug use: Never No family history on file. No Known Allergies Exam Vitals: 05/14/24 0411 05/14/24 0813 05/14/24 1133 05/14/24 1649 BP: 120/71 176/83 161/77 110/68 Pulse: 95 106 104 100 Resp: 20 21 21 21 Temp: 98.4 ??F (36.9 ??C) 99.4 ??F (37.4 ??C) 98.8 ??F (37.1 ??C) 99.2 ??F (37.3 ??C) SpO2: 96% 90% 98% 96% Weight: Height: Temp (30hrs) Max:100.3 ??F (37.9 ??C) General appearance: cooperative, no distress, appears stated age, alert HEENT: ncat, vision intact Lungs: clear to auscultation bilaterally Heart: regular rate and rhythm, S1, S2 normal, no murmur, Abdomen: soft, non-tender; bowel sounds normal Extremities: extremities normal, atraumatic, no cyanosis or edema Skin: no rash/lesion Lines: MEDICATIONS FOR CURRENT ENCOUNTER: SCHEDULED MEDICATIONS: atorvastatin (Lipitor) tablet 40 mg, Oral, AT BEDTIME buPROPion XL 24hr (Wellbutrin-XL) tablet 150 mg, Oral, QDAY cefepime (Maxipime) 2,000 mg in 0.9% NaCl IV 50 mL IVPB, Intravenous, q8h enoxaparin (Lovenox) injection 40 mg, Subcutaneous, BID ferrous sulfate tablet 325 mg, Oral, QDAY AFTER LUNCH gabapentin (Neurontin) capsule 300 mg, Oral, TID insulin aspart (NovoLOG) pen 0-4 Units, Subcutaneous, AT BEDTIME insulin aspart (NovoLOG) pen 0-6 Units, Subcutaneous, TID WC insulin aspart (NovoLOG) pen 4 Units, Subcutaneous, TID WC insulin glargine (Lantus) pen 15 Units, Subcutaneous, AT BEDTIME metroNIDAZOLE (Flagyl) tablet 500 mg, Oral, q8h pantoprazole EC (Protonix) tablet 40 mg, Oral, QDAY tamsulosin (Flomax) capsule 0.4 mg, Oral, QDAY vancomycin (Vancocin) 1,500 mg in 530 mL IVPB, Intravenous, q12h vancomycin (Vancocin) IV dose per pharmacy, Does not apply, DIRECTED Data Recent Labs Component Name 05/14/24 0403 05/13/24 1830 09/17/23 1247 WBC 21.8* 22.3* 7.6 HGB 7.7* 8.2* 11.7* HCT 25.1* 25.6* 33.8* PLTCOUNT 298 318 189 Recent Labs Component Name 05/14/24 0403 05/13/24 1830 09/17/23 1247 SODIUM 133* 133* - POTASSIUM 4.1 3.8 3.8 CHLORIDE 106 105 - CO2 20* 19* 26 BUN 28* 30* 18 CREATININE 1.38* 1.32* 0.75 GLUCOSE 185* 186* 119* CALCIUM 8.2* 8.3* 9.6 Recent Labs Component Name 05/14/24 0403 09/17/23 1247 ALBUMIN 1.6* - ALKPHOS - 84 ALT - 11 AST - 12 No results for input(s): CDIFFTOXINAB in the last 70574 hours. No results for input(s): SEDRATE in the last 61642 hours. No results for input(s): CRP in the last 92147 hours. Recent Labs Component Name 05/14/24 0403 CK 136 .No results for input(s): VANCOTROUGH , VANCOPEAK , VANCSERIES in the last 50146 hours. Invalid input(s): VANCORAND Recent Labs Component Name 09/17/23 1247 HGBA1C 6.2* Recent Labs Component Name 10/08/23 0852 PROTEINUA 2+ 1.0 UROBILINUA 3.5 Microbiology Radiology Assessment --Ulcer of left foot? Om -- christie --Dm--uncontrolled --htn --anemia --anxiety, depression -- bph -- mo --non compliance Plan - on cefepime, po flagyl, vanc - podiatry on case, plan for surgery on 05/15 - monitoring labs - f.u bcx , wound cx - mri foot and mono ordered - local care of wounds - compliance with meds and tight glycemic control Lesa Rodríguez MD MENT SETTER HELPER Abby Fraire DPM - 05/14/2024 2:37 PM CSTAssociated Order(s): IP CONSULT TO PODIATRY Admit Date: 05/13/2024 4:58 PM Hospital Day: 1 Name: Rene Hyatt Date: 05/14/2024 Medical Doctor: Nguyễn Bingham MD CC: Patient is seen at bedside for initial visit with a cc of open ulceration with infection left foot. HPI: Patient relates he had nausea earlier in the week. He states he was able to eat so he has not had nausea today. Patient denies vomiting. Patient denies fever. Patient relates he has been followed by an outside physician for this problem. He states the wound has gotten worst over time. Patient relates having this wound for greater than 3-4 weeks. Patient was sent from a hospital in [place] to handle this problem. Family History: No family history on file. Data Vitals: 05/14/24 0109 05/14/24 0411 05/14/24 0813 05/14/24 1133 BP: 167/72 120/71 176/83 161/77 Pulse: 102 95 106 104 Resp: 20 20 21 21 Temp: 99.6 ??F (37.6 ??C) 98.4 ??F (36.9 ??C) 99.4 ??F (37.4 ??C) 98.8 ??F (37.1 ??C) SpO2: 96% 96% 90% 98% Weight: Height: Temp (30hrs) Max:100.3 ??F (37.9 ??C) Filed Wts: 05/13/24 2213 Weight: (!) 183.9 kg (405 lb 6.4 oz) MEDICATIONS FOR CURRENT ENCOUNTER: SCHEDULED MEDICATIONS: atorvastatin (Lipitor) tablet 40 mg, Oral, AT BEDTIME buPROPion XL 24hr (Wellbutrin-XL) tablet 150 mg, Oral, QDAY cefepime (Maxipime) 2,000 mg in 0.9% NaCl IV 50 mL IVPB, Intravenous, q8h enoxaparin (Lovenox) injection 40 mg, Subcutaneous, BID ferrous sulfate tablet 325 mg, Oral, QDAY AFTER LUNCH gabapentin (Neurontin) capsule 300 mg, Oral, TID insulin aspart (NovoLOG) pen 0-4 Units, Subcutaneous, AT BEDTIME insulin aspart (NovoLOG) pen 0-6 Units, Subcutaneous, TID WC insulin aspart (NovoLOG) pen 4 Units, Subcutaneous, TID WC insulin glargine (Lantus) pen 15 Units, Subcutaneous, AT BEDTIME metroNIDAZOLE (Flagyl) tablet 500 mg, Oral, q8h pantoprazole EC (Protonix) tablet 40 mg, Oral, QDAY tamsulosin (Flomax) capsule 0.4 mg, Oral, QDAY vancomycin (Vancocin) 1,500 mg in 530 mL IVPB, Intravenous, q12h vancomycin (Vancocin) IV dose per pharmacy, Does not apply, DIRECTED CONTINUOUS MEDICATIONS: 0.9% NaCl flush bag, Intravenous, CONTINUOUS PRN sodium bicarbonate 8.4 % 150 mEq in sterile water (PF) infusion (fluid), Intravenous, Continuous PRN MEDICATIONS: Or Or 0.9% NaCl flush bag, Intravenous, CONTINUOUS PRN dextrose 10 % IV bolus, Intravenous, PRN dextrose 10 % IV bolus, Intravenous, PRN glucagon (Glucagen) injection 1 mg, Subcutaneous, PRN glucose (Diabetic Use) oral gel, Oral, PRN Recent Labs Component Name 05/14/24 04005/13/24182909/17/23 1247 WBC 21.8* 22.3* 7.6 HGB 7.7* 8.2* 11.7* HCT 25.1* 25.6* 33.8* PLTCOUNT 298 318 189 Recent Labs Component Name 05/14/24 0403 05/13/24182909/17/23 1247 SODIUM 133* - - POTASSIUM 4.1 - 3.8 CHLORIDE 106 - - CO2 20* - 26 BUN 28* - 18 CREATININE 1.38* - 0.75 GLUCOSE 185* - 119* CALCIUM 8.2* - 9.6 ALBUMIN 1.6* - - ALKPHOS - - 84 ALT - - 11 AST - - 12 EGFR 65* - >90 - = values in this interval not displayed. No results for input(s): INR in the last 47781 hours. No results for input(s): PT in the last 39700 hours. No results for input(s): PTT in the last 94907 hours. GENERAL: Conversant; NAD PSYCHE: Alert and oriented to person, place, and time. Appropriate affect noted. EYES: PERRLA; No scleral icterus. Conjuctiva moist NECK: Supple; no masses. Trachea midline. No thyromegaly Lower extremity VASCULAR: Dorsalis pedis pulses: Right 0/4 Left 0/4 Posterior tibial pulses: Right 0/4 Left 0/4 Patient shows: decreased hair growth thin atrophic skin No edema noted bilaterally LYMPHATICS: Lymphedema is noted bilaterally. No painful popliteal or inguinal nodes DERMATOLOGIC: Skin color and texture are: Ulceration located: Left foot There is a large open ulceration noted to the plantar aspect of left foot with minimal to no granular tissue noted. There is malodor noted. There is franchesca wound erythema noted. Erythema extends for posterior left foot to calf. There is malodor noted. There is moderate serous drainage noted. Size 8.0cmx 8.0cm x 1.0cm NEUROLOGIC: Protective Sensation is absent with 5.07 SWMF bilaterally at toes and MPJ levels Patient can not distinguish between sharp and dull. Proprioception is intact. MUSCULO: Manual Muscle strength is diminsihed in the anterior and posterior muscle groups bilateral feet andlower limbs. Blood Culture: Wound Culture: Arterial Doppler: Order Xray: COMPARISON: 03/06/2023 FINDINGS: No acute fracture or dislocation identified. Accessory ossicle at the base of the 5th metatarsal. No osseous cortical erosions. No radiopaque foreign body. Soft tissue gas within the hindfoot. Diffuse soft tissue swelling of the foot. IMPRESSION: Diffuse soft tissue swelling of the foot. Soft tissue gas within the hindfoot. No acute osseous abnormality. MRI: Ordered ASSESSEMENT: 1. Infection left foot 2. Osteomyelitis left foot 3. Diabetic neuropathic ulceration - 4. PVD 5. Neuropathy 6. Diabetes Infection left foot/ Osteomyelitis left foot - Cefepime (Maxipime) 2,000mg every 8 hours - Metronidazole 500mg every 8 hours - Vancomycin 1500mg every 12 hours Diabetic neuropathic ulceration left foot - Dressing instructions: Apply dry dressing to left foot wound consisting of 4x4s, abd pad, kerlix and dee bandage. Change dressing daily. - Weight bearing: Ambulate non weight bearing to left foot with walker. Neuropathy/ Type II Diabetes - Monitor blood glucose - Internal medicine following PLAN: Patient relates finishing eating 5 minutes ago. Patient is stable w/o fever. Because patient has recently finished eating. We will schedule patient for surgical I&D and debridement in the morning. Discussed case with patients nurse explained that if patient regresses in any way, please contact me so that we can do his surgery tonight. The nurse relates understanding. Patient is scheduled for Incision and drainage left foot with debridement of wound. Procedure scheduled for 05/15/24 in am. Thank you for asking [facility], Dr. Abby Quinn to participate in the care of your patient. Please call [phone] (Office), (Exchange), (Cell #, Call/ Text) with any questions or concerns. MENT SETTER HELPER * Yesenia Tan, JR/CAYETANO - 05/14/2024 12:24 PM CSTAssociated Order(s): IP CONSULT TO NUTRITIONAL SERV Images from the original note were not included. BRIEF SYNOPSIS: Nutrition Risk Identified but does not meet malnutrition criteria. Body mass index is 45.67 kg/m??. GI Concerns: None Nutrition Plan: Current diet order: Consistent Carb Standard;Sodium Restricted Standard Current supplement order: bao bid Recommendation to Physician: To optimize wound healing consider adding Daily MVI w/ minerals Vitamin C 500 mg/day x 10 days Zinc Sulfate 220 mg/day x 10 days Discharge Needs: Continue Bao 28 days post discharge to optimize wound healing Bao can be purchased at [facility] located across from [facility] ([address] [place] [address]) for a reduced cost. supervisor soakers is encouraged to prevent delivery fees, butif this isn't feasible it can be delivered to the home by calling [phone]. Patient would benefit from outpatient nutrition counseling & follow up at discharge. To see an outpatient dietitian a provider will need to enter an order for MNT (Medical Nutrition Therapy) Ambulatory [id number] in [facility]. MNT is a covered Medicare benefit for diabetes and renal disease. Other insurance coverage varies, patients should check with their insurance providers to verify coverage. CLINICAL NUTRITION ASSESSMENT: Received consult for non-healing wound. Reviewed wound images. 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 Suspect appetite was impacted by the infection. Pt reported that his appetite was improved today. BMI suggests morbid obesity, updated weight suggests weigh gain of about 42 lbs in the past 6 months. May not be accurate, as previous weights may have been stated. Recommend outpatient nutrition consult following discharge. (See instructions above). Discussed nutrition and wound healing education with patient. He reported that this is not his first wound and he is familiar with the nutrition recommendations. Pt was willing to briefly review the education today, see details below. Due to increased nutrient needs, recommend an oral nutritional rasmussen pplement for patient. He is willing to trial Bao. Bao (Wound Healing Supplement) provides 90 calories, 14 grams amino acid (7 gm L-arginine & 7 gm L- glutamine), 2.5 grams protein (hydrolyzed collagen), 8 grams of carb per serving along with 9.5mg Zinc, 300mg Vit C, 15 mg Vitamin E, and 1.2 mcg Vitamin B12. Reviewed labs. Glucose elevated, receiving Lantus and Novolog and Carbohydrate Consistent Diet. BS range in the past 24 hours, 185-253 mg/dl. Sodium mildly low. BUN/Creat elevated, consistent with CHRISTIE. Albumin depleted. Med/Surg History and Clinical Diagnoses: infected DM foot ulcer, ARF, DM, HTN, Anemia, Anxiety/depression, GERD, BPH, obesity, non compliance Height: 200.7 cm (6' 7 ) BMI: Body mass index is 45.67 kg/m??. BMI Range: Morbidly Obese Class 3 IBW/lb (Calculated) Male: 220 Recent Weights/Methods 07/30/2023 1352 09/17/2023 1059 10/01/2023 1058 10/08/2023 0833 10/12/2023 1039 10/29/2023 1255 05/13/2024 2213 Weight: 158.3 kg (349 lb) 157.4 kg (347 lb) 166.7 kg (367 lb 9.6 oz) 164.7 kg (363 lb) 164.7 kg (363 lb) 164.7 kg (363 lb) 183.9 kg (405 lb 6.4 oz) Weight Method : -- -- -- -- -- -- Standing scale UBW: unsure Unintentional weight change: weight up 42 lbs in the past 6 months. 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 OPERATOR Skin/Wound: LLE wound Estimated Needs: KCAL: 8334-3291 kcals (11-14 kcal/kg of ABW) Protein (g): 138-183 g of PRO (1.5- 2.0 g of PRO/kg of IBW) Fluid (ml): 1 ml/kcal Recommended Access Route: PO Labs: Recent Labs Component Name 05/14/24 0403 05/13/24 1830 09/17/23 1247 SODIUM 133* 133* - NA - - 140 POTASSIUM 4.1 3.8 3.8 CHLORIDE 106 105 - CO2 20* 19* 26 BUN 28* 30* 18 CREATININE 1.38* 1.32* 0.75 GLUCOSE 185* 186* 119* CALCIUM 8.2* 8.3* 9.6 ALT - - 11 ALKPHOS - - 84 AST - - 12 EGFR 65* 68* >90 ALBUMIN 1.6* - - Recent Labs Component Name 05/14/24 0403 PHOS 4.1 No results for input(s): MAGNESIUM in the last 22116 hours. Recent Labs Component Name 05/14/24 0403 05/13/24 1830 09/17/23 1247 HGB 7.7* 8.2* 11.7* HCT 25.1* 25.6* 33.8* Recent Labs Component Name 09/17/23 1247 HGBA1C 6.2* Patient Vitals for the past 30 hrs: Glucose Bedside (mg/dL) 05/14/24 1133 253 mg/dL 05/14/24 0813 210 mg/dL 05/13/24 2311 222 mg/dL MEDICATIONS FOR CURRENT ENCOUNTER: SCHEDULED MEDICATIONS: atorvastatin (Lipitor) tablet 40 mg, Oral, AT BEDTIME buPROPion XL 24hr (Wellbutrin-XL) tablet 150 mg, Oral, QDAY cefepime (Maxipime) 2,000 mg in 0.9% NaCl IV 50 mL IVPB, Intravenous, q8h enoxaparin (Lovenox) injection 40 mg, Subcutaneous, BID famotidine (Pepcid) tablet 40 mg, Oral, AT BEDTIME ferrous sulfate tablet 325 mg, Oral, QDAY AFTER LUNCH gabapentin (Neurontin) capsule 300 mg, Oral, TID insulin aspart (NovoLOG) pen 0-4 Units, Subcutaneous, AT BEDTIME insulin aspart (NovoLOG) pen 0-6 Units, Subcutaneous, TID WC insulin aspart (NovoLOG) pen 4 Units, Subcutaneous, TID WC insulin glargine (Lantus) pen 15 Units, Subcutaneous, AT BEDTIME metroNIDAZOLE (Flagyl) tablet 500 mg, Oral, q8h pantoprazole EC (Protonix) tablet 40 mg, Oral, QDAY tamsulosin (Flomax) capsule 0.4 mg, Oral, QDAY vancomycin (Vancocin) 1,500 mg in 530 mL IVPB, Intravenous, q12h vancomycin (Vancocin) IV dose per pharmacy, Does not apply, DIRECTED CONTINUOUS MEDICATIONS: 0.9% NaCl flush bag, Intravenous, CONTINUOUS PRN sodium bicarbonate 8.4 % 150 mEq in sterile water (PF) infusion (fluid), Intravenous, Continuous PRN MEDICATIONS: Or Or 0.9% NaCl flush bag, Intravenous, CONTINUOUS PRN dextrose 10 % IV bolus, Intravenous, PRN dextrose 10 % IV bolus, Intravenous, PRN glucagon (Glucagen) injection 1 mg, Subcutaneous, PRN glucose (Diabetic Use) oral gel, Oral, PRN Nutrition Diagnostic Statement: Increased nutrient needs related to:: increased demands for wound healing as evidenced by:: estimated protein needs .. (138-183 g) Nutrition Intervention: Meals and snacks:;Medical Food Supplements: Education needed: Wound Healing Education Provided: Yes;Handout Provided (05/14/24 1200) Education was provided on nutrition and wound healing. Discussed protein, vitamin A and vitamin C food sources to include at meal times. Reviewed importance of good BG control. Discussed the benefit of Oral Nutrition Supplements (ONS) to aid with meeting calorie and protein needs to aid wound healing. Pt agrees to Bao BID. Bao (Wound Healing Supplement) provides 90 calories, 14 grams amino acid (7 gm L-arginine & 7 gm L-glutamine), 2.5 grams protein (hydrolyzed collagen), 8 grams of carb per serving along with 9.5mg Zinc, 300mg Vit C, 15 mg Vitamin E, and 1.2 mcg Vitamin B12. [facility] handout was provided and pt was encouraged to call concerning questions. Expected level of compliance: Fair Monitoring: Intake Weight Labs BM Skin integrity Monitor per nutrition guidelines. Risk Level: Moderate Evaluation: Nutrition Goal: Total intake will meet estimated nutrient needs Nutrition Goal Timeframe: Throughout stay Nutrition Goal Progress: New goal established Yesenia Morales RD/CAYETANO 05/14/2024 5:58 PM Weekend pager- [phone] MENT SETTER HELPER documented in this encounter OR Notes * Brief Op Note - Abby Quinn DPM - 05/20/2024 4:04 PM CST Dictation # [id number] Surgeon: Abby Quinn DPM Assist: RN Pre op Dx: 1. Type II Diabetes/ Non pressure ulceration left foot 2. Infection left foot Post OP Dx: 1. Same as above Procedure: 1. Excisional Debridement of left foot wound skin, subcutaneous tissue and muscle. Muscle was the deepest level of debridement. This was a planned return to the operating room. (15cm x 15cm x 2.5cm) 2. Application of Amnio Stitzer Plus 5cm x 8cm (x 5). 3. Application of Cytal Wound Matrix 2 - layer graft 10 x 15. Anesthesia: Local MAC Hemostasis: No tourniquet used EBL: 200mls Materials: AmnioExcel Plus 5cm x 8cn (x 5), Cytal wound Matrix 2 - layter graft 10x 15. 0 - vicryl,Mepitel, 4x4's, fluffs, abd pad, kerlix, dee Injectables: 30cc's of a 1:1 mixture in an ankle block. Patient left OR, vital signs stable with vascular status intact as indicated by adequate color to digits left foot. MENT SETTER HELPER * Operative - Abby Quinn DPM - 05/20/2024 2:43 PM CST [facility] Operative Report PATIENT NAME: RENE HYATT MR#: [id number] DATE OF : 1980 CSN: [id number] DATE OF ADMISSION: 05/13/2024 ROOM#: [id number] DATE OF OPERATION: 05/20/2024 SURGEON: Abby Quinn D.P.M. STEAM DISTRIBUTION SUPERVISOR: ARYAN martínez. PREOPERATIVE DIAGNOSES: 1. Type 2 diabetes nonpressure ulceration, left foot. 2. Infection, left foot. POSTOPERATIVE DIAGNOSES: 1. Type 2 diabetes nonpressure ulceration, left foot. 2. Infection, left foot. PROCEDURE: 1. Excisional debridement of left foot wound skin, subcutaneous tissue and muscle, where muscle was the deepest level of debridement. This was a planned return to the operating room. 2. Application of AmnioExcel Plus 5 cm x 8 cm x5 and application of Cytal Wound Matrix 2-layer graft 10 x 15. ANESTHESIA: Local MAC. HEMOSTASIS: No tourniquet used. ESTIMATED BLOOD LOSS: 200 mL. MATERIALS: AmnioExcel Plus 5 cm x 8 cm x5, Cytal Wound Matrix 2-layer graft 10 cm x 15 cm, 0 Vicryl, Mepitel, 4x4s, fluffs, ABD pad, Kerlix, Dee. INJECTABLES: 30 cc of 1:1 mixture of lidocaine plain, Marcaine plain and ankle block, left. The patient is a 43-year-old male who was brought to the OR emergently on this past Thursday. The wound was debrided and cleansed. The wound was relatively stable after procedure, however, uponevaluation during the week, some areas of purulence were continued to be noted and it was determined that the patient would be brought back to the OR to continue debridement of the wound with irrigation. PROCEDURE IN DETAIL: The patient was brought into the operating room, placed on the operating table in a supine position. After administering IV anesthesia, the patient was given 30 cc of 1:1 mixture of lidocaine plain, Marcaine plain, and ankle block. The left foot was cleansed, prepped and draped in usual sterile manner. Attention was directed to the left foot where purulent drainage was noted to the dorsal medial left foot. Incision was made approximately 7 cm releasing the pocket of purulence. The necrotic tissue and fibrotic tissue were debrided and resected and passed from the operative field. Continued debridement was performed throughout the wound left foot to remove all remaining necrosis, fibrosis and slough. The goal was to remove all nonviable tissue to promote wound healing and to have the fluids running clear to resolve and prevent infection. The VersaJet was then used to debride and remove remaining nonviable tissue including necrosis, fibrosis and slough. All sharp debridement was performed with a #10 blade. The post debridement measurements are 15 cm x 15 cm x 2.5 cm. Irrigation was performed using a Pulsavac. Copious amounts of sterile normal saline was used to irrigate the wound and to resolve and remove any purulent drainage, as well as nonviable tissue including slough, fibrin and necrosis free standing on the wound. 0 Vicryl was used for ligature sutures to stop bleeders. Bovie, direct pressure as well as topical thrombin was used to stop bleeders. Once bleeding was stopped, AmnioExcel Plus 5cm x 8 cm was applied to the wound, 5 of these grafts were used, applied to the wound base and sutured in place with 0 Vicryl. The wound was then covered with Cytal Wound Matrix as the patient's wound was still greater than 2 cm and 3.5 cm in depth. The Cytal Wound Matrix 2-layer graft was applied to the wound, was stapled in place. Mepitel was used to cover all wounds and grafts, and 4x4s were used to bolster the graft in place. 4x4s were then applied to cover the wound including ABD pads, Kerlix and Dee bandage. Again, the post debridement measurements are 15 cm x 15 cm x 2.5 cm. This is an excisional debridement using a sharp #10 blade as well as VersaJet to remove all nonviable tissue including necrosis, fibrin and slough. All purulent drainage has been resolved after debridement. The patient left the OR with vital signs stable, vascular status adequate. NAME: RENE HYATT DICTATOR: Stanton [email or web address] DICTATED FOR: /JUAN JOSE JOB ID: [id number] Operative Report MENT SETTER HELPER * Brief Op Note - Abby Quinn DPM - 05/15/2024 3:51 PM CST Dictation # [id number] Surgeon: Abby Quinn DPM Assist: Chi Hoffman DPM Pre op Dx: 1. Type II Diabetes/ Non pressure left foot 2. Infection left foot 3. Osteomyelitis left foot Post OP Dx: 1. Same as above Procedure: 1. Excisional Debridement of left foot wound skin, subcutaneous level, muscle and bone. Bone was the deepest level of debridement. (11.0cm x 15.0cm x 2.5cm post debridement) Anesthesia: Local MAC Hemostasis: No tourniquet used EBL: 150mls Materials: Topical Thrombin (20,000BTUs x 2) , Gel foam, 4x4s, fluffs, abd pad, kerlix, dee Injectables: 40cc's of a 1:1 mixture in an ankle block. Pathology: Calcaneal bone Culture: Calcaneal bone Culture swab: Left foot wound Patient left OR, vital signs stable with vascular status intact as indicated by adequate color to digits left foot. MENT SETTER HELPER * Operative - Abby Quinn DPM - 05/15/2024 3:51 PM CST [facility] Operative Report PATIENT NAME: RENE HYATT MR#: [id number] DATE OF : 1980 CSN: [id number] DATE OF ADMISSION: 05/13/2024 ROOM#: [id number] DATE OF OPERATION: 05/15/2024 SURGEON: Abby Quinn D.P.M. STEAM DISTRIBUTION SUPERVISOR: Chi Hoffman DPM. PREOP DIAGNOSES: 1. Type 2 diabetes non-pressure ulceration, left foot. 2. Infection, left foot. 3. Osteomyelitis, left foot. POSTOP DIAGNOSES: 1. Type 2 diabetes non-pressure ulceration, left foot. 2. Infection, left foot. 3. Osteomyelitis, left foot. PROCEDURE: 1. Excisional debridement of left foot wound skin, subcutaneous level, muscle and bone where bone was the deepest level of debridement. Post debridement measurement, 11.0 cm x 15.0 cm x 2.5 cm post debridement. ANESTHESIA: Local MAC. HEMOSTASIS: No tourniquet was used. ESTIMATED BLOOD LOSS: 150 mL. MATERIALS: Topical thrombin 20,000 BTUs x2, Gel-Foam, 4x4s, fluffs, ABD pad, Kerlix, Dee. INJECTABLES: 40 cc of 1:1 mixture of lidocaine plain, Marcaine plain, and ankle block. Bone that was debrided was removed and sent and cultured. Bone removed from the calcaneus were removed and sent via osteotome and Jamshidi. INDICATION: Mr. Rene Hyatt is a 43-year-old male who was transferred to the hospital from a hospital in [place]. The patient relates having an open ulceration for 3 to 4 months. He relates that the wound got worse over the last 3 to 4 weeks. The patient was seen by me for the first time. He presented with a purulent malodorous wound for which we determined it needed to be debrided and incised and drained with removal of abnormal poor quality tissue. PROCEDURE IN DETAIL: The patient was brought into the operating room, placed on the operating table in supine position. After administering of IV anesthesia, the patient was given 40 cc of 1:1 mixture of lidocaine plain, Marcaine plain, and ankle block. Left foot was cleansed, prepped and draped in usual sterile manner. Attention was directed to the left foot wound where incision and drainage was performed using a sharp # 10 blade to open left heel wound deep to fascia and muscle. Purulent drainage was expressed mostly medially. Culture swabs were taken for left foot culture wound. At this time, irrigation was performed to remove all purulent and serous drainage. Debridement was then performed using a sharp #10 blade to remove all nonviable Tissue including skin, subcutaneous tissue, muscle and bone which was removed using a jamshidi needle. This created a large void exposing continue poor quality tissue including necrosis, fibrosis, and slough. The tissue was malodorous with underlying purulent drainage. The ulceration was debrided exposing the calcaneus. The calcaneus wasdebrided using osteotome and mallet as well as well as Jamshidi needle biopsy. Bone was sent for culture and path. Wound swabs were sent for culture. Wounds were irrigated with copious amounts of sterile normal saline. Wounds were irrigated multiple times and Versajet was used multiple times to resolve areas of purulence and non viable tissue. A sharp #10 blade was used to follow areas of abscess at the distal areas of peroneal and tibial tendons. The tracking followed the tibial tendon to the ankle level as well as the peroneal tendon to the ankle level. The patient will possibly need additional debridement possibly to continue removing infection, although there is no purulent drainage or non viable tissue remaining after surgery today. The patient will possibly need additional resection including the possibility of a partial calcanectomy, left foot, or possibly more proximal amputation such as BK amputation. Determination could be made after evaluating the patient post surgery and determine the progress of the wound. We will continue to follow the patient. NAME: RENE HYATT DICTATOR: ABBY QUINN D.P.M. DICTATED FOR: /JUAN JOSE JOB ID: [id number] Operative Report MENT SETTER HELPER documented in this encounter Plan of Treatment Pending Results Name Type Priority Associated Diagnoses Date /Time CULTURE AFB+SMEAR Microbiology STAT Left foot infection 05/15/2024 4:33 PM MONUMENT SETTER HELPER CULTURE FUNGUS OTHER+FUNGUS SMEAR Microbiology STAT Left foot infection 05/15/2024 4:34 PM MONUMENT SETTER HELPER CULTURE FUNGUS OTHER+FUNGUS SMEAR Microbiology STAT Diagnosis unknown 05/20/2024 2:58 PM MONUMENT SETTER HELPER Scheduled Orders Name Type Priority Associated Diagnoses Orde r Schedule MRI Ankle Left Wo Contrast Imaging Routine Left foot infection For radiant use only for 1 Occurrences starting 05/16/2024 until 05/16/2024 Scheduled Referrals Name Type Priority Associated Diagnoses Orde r Schedule Referral to Home Health Care Outpatient Referral Routine Left foot infection Ordered: 05/25/2024 documented as of this encounter Procedures Procedure Name Priority Date/Time Associated Diagnosis Comments CARDIAC RHYTHM STRIP ORDER 05/27/2024 5:02 PM MONUMENT SETTER HELPER GLUCOSE - POINT OF CARE Routine 05/26/2024 11:48 AM MONUMENT SETTER HELPER GLUCOSE - POINT OF CARE Routine 05/26/2024 8:04 AM MONUMENT SETTER HELPER GLUCOSE - POINT OF CARE Routine 05/25/2024 8:59 PM MONUMENT SETTER HELPER GLUCOSE - POINT OF CARE Routine 05/25/2024 4:36 PM MONUMENT SETTER HELPER GLUCOSE - POINT OF CARE Routine 05/25/2024 11:36 AM MONUMENT SETTER HELPER GLUCOSE - POINT OF CARE Routine 05/25/2024 8:12 AM MONUMENT SETTER HELPER GLUCOSE - POINT OF CARE Routine 05/24/2024 7:43 PM MONUMENT SETTER HELPER GLUCOSE - POINT OF CARE Routine 05/24/2024 5:12 PM MONUMENT SETTER HELPER GLUCOSE - POINT OF CARE Routine 05/24/2024 12:30 PM MONUMENT SETTER HELPER GLUCOSE - POINT OF CARE Routine 05/24/2024 7:40 AM MONUMENT SETTER HELPER RENAL FUNCTION PANEL AM Draw 05/24/2024 5:08 AM MONUMENT SETTER HELPER GLUCOSE - POINT OF CARE Routine 05/23/2024 7:43 PM MONUMENT SETTER HELPER GLUCOSE - POINT OF CARE Routine 05/23/2024 5:17 PM MONUMENT SETTER HELPER GLUCOSE - POINT OF CARE Routine 05/23/2024 11:46 AM MONUMENT SETTER HELPER GLUCOSE - POINT OF CARE Routine 05/23/2024 7:38 AM MONUMENT SETTER HELPER RENAL FUNCTION PANEL AM Draw 05/23/2024 3:33 AM MONUMENT SETTER HELPER GLUCOSE - POINT OF CARE Routine 05/22/2024 9:22 PM MONUMENT SETTER HELPER GLUCOSE - POINT OF CARE Routine 05/22/2024 5:29 PM MONUMENT SETTER HELPER GLUCOSE - POINT OF CARE Routine 05/22/2024 12:15 PM MONUMENT SETTER HELPER GLUCOSE - POINT OF CARE Routine 05/22/2024 7:20 AM MONUMENT SETTER HELPER RENAL FUNCTION PANEL AM Draw 05/22/2024 3:09 AM MONUMENT SETTER HELPER GLUCOSE - POINT OF CARE Routine 05/21/2024 8:39 PM MONUMENT SETTER HELPER GLUCOSE - POINT OF CARE Routine 05/21/2024 5:12 PM MONUMENT SETTER HELPER GLUCOSE - POINT OF CARE Routine 05/21/2024 11:59 AM MONUMENT SETTER HELPER GLUCOSE - POINT OF CARE Routine 05/21/2024 7:47 AM MONUMENT SETTER HELPER RENAL FUNCTION PANEL AM Draw 05/21/2024 3:03 AM MONUMENT SETTER HELPER GLUCOSE - POINT OF CARE Routine 05/20/2024 7:40 PM MONUMENT SETTER HELPER GLUCOSE - POINT OF CARE Routine 05/20/2024 5:59 PM MONUMENT SETTER HELPER GLUCOSE - POINT OF CARE Routine 05/20/2024 4:42 PM MONUMENT SETTER HELPER CULTURE FUNGUS OTHER+FUNGUS SMEAR STAT 05/20/2024 2:58 PM MONUMENT SETTER HELPER Diagnosis unknown CULTURE WOUND+GRAM STAIN STAT 05/20/2024 2:58 PM MONUMENT SETTER HELPER Diagnosis unknown CULTURE ANAEROBE STAT 05/20/2024 2:58 PM MONUMENT SETTER HELPER Diagnosis unknown NC SANTI MUSC/FASCIA 20 SQ CM/< 05/20/2024 1:48 PM MONUMENT SETTER HELPER Diagnosis unknown 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, 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, VERSAJET, VASHE IRRIGATION SOLUTION, [employer] EP (JAGJIT) NOTIFIED PER OFFICE(QUEENIE) 05/19 TM GLUCOSE - POINT OF CARE Routine 05/20/2024 8:56 AM MONUMENT SETTER HELPER RENAL FUNCTION PANEL AM Draw 05/20/2024 3:09 AM MONUMENT SETTER HELPER GLUCOSE - POINT OF CARE Routine 05/19/2024 10:16 PM MONUMENT SETTER HELPER GLUCOSE - POINT OF CARE Routine 05/19/2024 8:17 PM MONUMENT SETTER HELPER GLUCOSE - POINT OF CARE Routine 05/19/2024 5:11 PM MONUMENT SETTER HELPER GLUCOSE - POINT OF CARE Routine 05/19/2024 12:03 PM MONUMENT SETTER HELPER GLUCOSE - POINT OF CARE Routine 05/19/2024 7:29 AM MONUMENT SETTER HELPER RENAL FUNCTION PANEL AM Draw 05/19/2024 2:16 AM MONUMENT SETTER HELPER GLUCOSE - POINT OF CARE Routine 05/18/2024 7:46 PM MONUMENT SETTER HELPER GLUCOSE - POINT OF CARE Routine 05/18/2024 6:07 PM MONUMENT SETTER HELPER GLUCOSE - POINT OF CARE Routine 05/18/2024 11:58 AM MONUMENT SETTER HELPER GLUCOSE - POINT OF CARE Routine 05/18/2024 9:20 AM MONUMENT SETTER HELPER GLUCOSE - POINT OF CARE Routine 05/18/2024 7:42 AM MONUMENT SETTER HELPER CBC W/O DIFFERENTIAL AM Draw 05/18/2024 3:38 AM MONUMENT SETTER HELPER RENAL FUNCTION PANEL AM Draw 05/18/2024 3:38 AM MONUMENT SETTER HELPER GLUCOSE - POINT OF CARE Routine 05/17/2024 11:12 PM MONUMENT SETTER HELPER GLUCOSE - POINT OF CARE Routine 05/17/2024 10:29 PM MONUMENT SETTER HELPER GLUCOSE - POINT OF CARE Routine 05/17/2024 6:02 PM MONUMENT SETTER HELPER PROTEIN CREATININE RATIO URINE RANDOM PNL Routine 05/17/2024 1:14 PM MONUMENT SETTER HELPER VAS ARTERIAL ANKLE ARM INDEX Routine 05/17/2024 12:04 PM MONUMENT SETTER HELPER Ulcer of left foot with other severity (HCC) GLUCOSE - POINT OF CARE Routine 05/17/2024 11:57 AM MONUMENT SETTER HELPER CBC W/O DIFFERENTIAL STAT 05/17/2024 9:46 AM MONUMENT SETTER HELPER GLUCOSE - POINT OF CARE Routine 05/17/2024 7:57 AM MONUMENT SETTER HELPER COMPLEMENT C4 Routine 05/17/2024 5:00 AM MONUMENT SETTER HELPER BASIC METABOLIC PANEL (CALCIUM TOTAL) AM Draw 05/17/2024 5:00 AM MONUMENT SETTER HELPER COMPLEMENT C3 Routine 05/17/2024 5:00 AM MONUMENT SETTER HELPER GLUCOSE - POINT OF CARE Routine 05/16/2024 9:36 PM MONUMENT SETTER HELPER GLUCOSE - POINT OF CARE Routine 05/16/2024 6:18 PM MONUMENT SETTER HELPER MRI FOOT LEFT WO CONTRAST Routine 05/16/2024 5:20 PM MONUMENT SETTER HELPER Ulcer of left foot with other severity (HCC) URINALYSIS REFLEX TO MICROSCOPIC NO CULTURE Routine 05/16/2024 12:57 PM MONUMENT SETTER HELPER GLUCOSE - POINT OF CARE Routine 05/16/2024 11:07 AM MONUMENT SETTER HELPER VANCOMYCIN LEVEL PEAK STAT 05/16/2024 9:04 AM MONUMENT SETTER HELPER GLUCOSE - POINT OF CARE Routine 05/16/2024 7:53 AM MONUMENT SETTER HELPER DIFFERENTIAL MANUAL AM Draw 05/16/2024 3 :09 AM MONUMENT SETTER HELPER CBC W AUTO DIFFERENTIAL AM Draw 05/16/2024 3:09 AM MONUMENT SETTER HELPER RENAL FUNCTION PANEL AM Draw 05/16/2024 3:09 AM MONUMENT SETTER HELPER GLUCOSE - POINT OF CARE Routine 05/15/2024 8:43 PM MONUMENT SETTER HELPER GLUCOSE - POINT OF CARE Routine 05/15/2024 6:01 PM MONUMENT SETTER HELPER XR FOOT LEFT 2VW STAT 05/15/2024 5:31 PM MONUMENT SETTER HELPER Left foot infection GLUCOSE - POINT OF CARE Routine 05/15/2024 5:06 PM MONUMENT SETTER HELPER CULTURE FUNGUS OTHER+FUNGUS SMEAR STAT 05/15/2024 4:34 PM MONUMENT SETTER HELPER Left foot infection CULTURE TISSUE+GRAM STAIN STAT 05/15/2024 4:34 PM MONUMENT SETTER HELPER Left foot infection CULTURE ANAEROBE STAT 05/15/2024 4:34 PM MONUMENT SETTER HELPER Left foot infection CULTURE TISSUE+GRAM STAIN STAT 05/15/2024 4:33 PM MONUMENT SETTER HELPER Left foot infection CULTURE AFB+SMEAR STAT 05/15/2024 4:3 3 PM MONUMENT SETTER HELPER Left foot infection CULTURE ANAEROBE STAT 05/15/2024 4:33 PM MONUMENT SETTER HELPER Left foot infection PATHOLOGY TISSUE EXAM (STL) Routine 05/15/2024 4:29 PM MONUMENT SETTER HELPER Left foot infection NC SANTI SUBQ TISSUE 20 SQ CM/< 05/15/2024 3:18 PM MONUMENT SETTER HELPER GLUCOSE - POINT OF CARE Routine 05/15/2024 1:31 PM MONUMENT SETTER HELPER GLUCOSE - POINT OF CARE Routine 05/15/2024 7:50 AM MONUMENT SETTER HELPER HEMOGLOBIN A1C Routine 05/15/2024 12:13 AM MONUMENT SETTER HELPER DIFFERENTIAL MANUAL AM Draw 05/15/2024 12:13 AM MONUMENT SETTER HELPER CBC W AUTO DIFFERENTIAL AM Draw 05/15/2024 12:13 AM MONUMENT SETTER HELPER RENAL FUNCTION PANEL AM Draw 05/15/2024 12:13 AM MONUMENT SETTER HELPER VANCOMYCIN LEVEL TROUGH STAT 05/15/2024 12:13 AM MONUMENT SETTER HELPER GLUCOSE - POINT OF CARE Routine 05/14/2024 10:02 PM MONUMENT SETTER HELPER SODIUM URINE RANDOM Routine 05/14/2024 5 :31 PM MONUMENT SETTER HELPER PROTEIN CREATININE RATIO URINE RANDOM PNL Routine 05/14/2024 5:31 PM MONUMENT SETTER HELPER VANCOMYCIN LEVEL PEAK STAT 05/14/2024 5:06 PM MONUMENT SETTER HELPER GLUCOSE - POINT OF CARE Routine 05/14/2024 4:50 PM MONUMENT SETTER HELPER US RETROPERITONEAL COMPLETE Routine 05/14/2024 2:17 PM MONUMENT SETTER HELPER CHRISTIE (acute kidney injury) (HCC) EOSINOPHIL URINE SMEAR Routine 1:19 PM MONUMENT SETTER HELPER CULTURE WOUND+GRAM STAIN Routine 05/14/2024 12:22 PM MONUMENT SETTER HELPER GLUCOSE - POINT OF CARE Routine 05/14/2024 11:33 AM MONUMENT SETTER HELPER CULTURE BLOOD STAT 05/14/2024 9:25 AM MONUMENT SETTER HELPER CULTURE BLOOD STAT 05/14/2024 9:16 AM MONUMENT SETTER HELPER B-TYPE NATRIURETIC PEPTIDE STAT 05/14/2024 9:16 AM MONUMENT SETTER HELPER LACTIC ACID BLOOD STAT 05/14/2024 9:1 6 AM MONUMENT SETTER HELPER FOLATE STAT 05/14/2024 9:16 AM MONUMENT SETTER HELPER VITAMIN B12 STAT 05/14/2024 9:16 AM MONUMENT SETTER HELPER GLUCOSE - POINT OF CARE Routine 05/14/2024 8:16 AM MONUMENT SETTER HELPER RETIC COUNT STAT 05/14/2024 4:03 AM MONUMENT SETTER HELPER DIFFERENTIAL MANUAL AM Draw 05/14/2024 4 :03 AM MONUMENT SETTER HELPER CBC W AUTO DIFFERENTIAL AM Draw 05/14/2024 4:03 AM MONUMENT SETTER HELPER RENAL FUNCTION PANEL AM Draw 05/14/2024 4:03 AM MONUMENT SETTER HELPER CK BLOOD STAT 05/14/2024 4:03 AM MONUMENT SETTER HELPER VANCOMYCIN LEVEL RANDOM STAT 05/14/2024 4:03 AM MONUMENT SETTER HELPER IRON + TRANSFERRIN PANEL STAT 05/14/2024 4:03 AM MONUMENT SETTER HELPER FERRITIN STAT 05/14/2024 4:03 AM MONUMENT SETTER HELPER GLUCOSE - POINT OF CARE Routine 05/13/2024 11:10 PM MONUMENT SETTER HELPER CBC W AUTO DIFFERENTIAL Routine 05/13/2024 6:30 PM MONUMENT SETTER HELPER BASIC METABOLIC PANEL (CALCIUM TOTAL) STAT 05/13/2024 6:30 PM MONUMENT SETTER HELPER documented in this encounter Results * CARDIAC RHYTHM STRIP ORDER (05/27/2024 5:02 PM MONUMENT SETTER HELPER) Narrative 05/27/2024 5:02 PM MONUMENT SETTER HELPER Ordered by an unspecified provider. Scanned Document CARDIAC SERVICES ORD ERABLES * (ABNORMAL) GLUCOSE - POINT OF CARE (05/26/2024 11:48 AM MONUMENT SETTER HELPER) Glucose WB/POC 127(H) 70 - 99 mg/dL 06/06/2024 7:01 AM MONUMENT SETTER HELPER [facility] Specimen Type Cap Fingerstick 2023 7:01 AM MONUMENT SETTER HELPER [facility] Blood BLOOD SPECIMEN / Unknown 05/26/2024 11:48 AM MONUMENT SETTER HELPER 06/06/2024 7:01 AM MONUMENT SETTER HELPER Tereza Mcpherson MD LAB - POINT OF CARE ORDERABLES [facility] [address] [place] [address] * (ABNORMAL) GLUCOSE - POINT OF CARE (05/26/2024 8:04 AM MONUMENT SETTER HELPER) Glucose WB/POC 116(H) 70 - 99 mg/dL 06/06/2024 7:01 AM MONUMENT SETTER HELPER [facility] Specimen Type Cap Fingerstick 12/30/ 2024 7:01 AM MONUMENT SETTER HELPER [facility] Blood BLOOD SPECIMEN / Unknown 05/26/2024 8:04 AM MONUMENT SETTER HELPER 06/06/2024 7:01 AM MONUMENT SETTER HELPER Tereza Mcpherson MD LAB - POINT OF CARE ORDERABLES Performing Organization Address [facility]/ZIP Co de Phone Number [facility] [address] [place] [phone] * (ABNORMAL) GLUCOSE - POINT OF CARE (05/25/2024 8:59 PM MONUMENT SETTER HELPER) Glucose WB/POC 162(H) 70 - 99 mg/dL 06/06/2024 7:01 AM MONUMENT SETTER HELPER [facility] Specimen Type Cap Fingerstick 2023 7:01 AM MONUMENT SETTER HELPER [facility] Blood BLOOD SPECIMEN / Unknown 05/25/2024 8:59 PM MONUMENT SETTER HELPER 06/06/2024 7:01 AM MONUMENT SETTER HELPER Tereza Mcpherson MD LAB - POINT OF CARE ORDERABLES Performing Organization Address [facility] Co de Phone Number [facility] [address] [place] [phone] * (ABNORMAL) GLUCOSE - POINT OF CARE (05/25/2024 4:36 PM MONUMENT SETTER HELPER) Glucose WB/POC 167(H) 70 - 99 mg/dL 06/06/2024 7:01 AM MONUMENT SETTER HELPER [facility] Specimen Type Cap Fingerstick 2023 7:01 AM MONUMENT SETTER HELPER [facility] Blood BLOOD SPECIMEN / Unknown 05/25/2024 4:36 PM MONUMENT SETTER HELPER 06/06/2024 7:01 AM MONUMENT SETTER HELPER Tereza Mcpherson MD LAB - POINT OF CARE ORDERABLES Performing Organization Address [facility] Co de Phone Number [facility] [address] [place] [phone] * (ABNORMAL) GLUCOSE - POINT OF CARE (05/25/2024 11:36 AM MONUMENT SETTER HELPER) Glucose WB/POC 146(H) 70 - 99 mg/dL 05/25/2024 12:00 PM MONUMENT SETTER HELPER [facility] Specimen Type Cap Fingerstick 2023 12:00 PM MONUMENT SETTER HELPER [facility] Blood BLOOD SPECIMEN / Unknown 05/25/2024 11:36 AM MONUMENT SETTER HELPER 05/25/2024 12:00 PM MONUMENT SETTER HELPER Tereza Mcpherson MD LAB - POINT OF CARE ORDERABLES Performing Organization Address City/[facility]/ZIP Co de Phone Number [facility] [address] [place] [phone] * (ABNORMAL) GLUCOSE - POINT OF CARE (05/25/2024 8:12 AM MONUMENT SETTER HELPER) Glucose WB/POC 119(H) 70 - 99 mg/dL 05/25/2024 12:00 PM MONUMENT SETTER HELPER [facility] Specimen Type Cap Fingerstick 2023 12:00 PM MONUMENT SETTER HELPER [facility] Blood BLOOD SPECIMEN / Unknown 05/25/2024 8:12 AM MONUMENT SETTER HELPER 05/25/2024 12:00 PM MONUMENT SETTER HELPER Tereza Mcpherson MD LAB - POINT OF CARE ORDERABLES Performing Organization Address [facility] de Phone Number [facility] [address] [place] [phone] * (ABNORMAL) GLUCOSE - POINT OF CARE (05/24/2024 7:43 PM MONUMENT SETTER HELPER) Glucose WB/POC 167(H) 70 - 99 mg/dL 05/24/2024 7:53 PM MONUMENT SETTER HELPER [facility] Specimen Type Arterial 05/24/2024 7:53 PM MONUMENT SETTER HELPER [facility] Blood BLOOD SPECIMEN / Unknown 05/24/2024 7:43 PM MONUMENT SETTER HELPER 05/24/2024 7:52 PM MONUMENT SETTER HELPER Tereza Mcpherson MD LAB - POINT OF CARE ORDERABLES Performing Organization Address [facility] Co de Phone Number [facility] [address] [place] [phone] * (ABNORMAL) GLUCOSE - POINT OF CARE (05/24/2024 5:12 PM MONUMENT SETTER HELPER) Glucose WB/POC 174(H) 70 - 99 mg/dL 05/24/2024 7:30 PM MONUMENT SETTER HELPER [facility] Specimen Type Cap Fingerstick 2023 7:30 PM MONUMENT SETTER HELPER [facility] Blood BLOOD SPECIMEN / Unknown 05/24/2024 5:12 PM MONUMENT SETTER HELPER 05/24/2024 7:30 PM MONUMENT SETTER HELPER Tereza Mcpherson MD LAB - POINT OF CARE ORDERABLES Performing Organization Address City/[facility]/ZIP Co de Phone Number [facility] [address] [place] [phone] * (ABNORMAL) GLUCOSE - POINT OF CARE (05/24/2024 12:30 PM MONUMENT SETTER HELPER) Glucose WB/POC 167(H) 70 - 99 mg/dL 05/24/2024 7:30 PM MONUMENT SETTER HELPER [facility] Specimen Type Cap Fingerstick 2023 7:30 PM MONUMENT SETTER HELPER [facility] Blood BLOOD SPECIMEN / Unknown 05/24/2024 12:30 PM MONUMENT SETTER HELPER 05/24/2024 7:30 PM MONUMENT SETTER HELPER Tereza Mcpherson MD LAB - POINT OF CARE ORDERABLES Performing Organization Address [facility]/ZIP Co de Phone Number [facility] [address] [place] [phone] * (ABNORMAL) GLUCOSE - POINT OF CARE (05/24/2024 7:40 AM MONUMENT SETTER HELPER) Glucose WB/POC 132(H) 70 - 99 mg/dL 05/24/2024 7:50 AM MONUMENT SETTER HELPER [facility] Specimen Type Cap Fingerstick 2023 7:50 AM MONUMENT SETTER HELPER [facility] Blood BLOOD SPECIMEN / Unknown 05/24/2024 7:40 AM MONUMENT SETTER HELPER 05/24/2024 7:49 AM MONUMENT SETTER HELPER Tereza Mcpherson MD LAB - POINT OF CARE ORDERABLES [facility] [address] [place] [phone] * (ABNORMAL) RENAL FUNCTION PANEL (05/24/2024 5:08 AM MONUMENT SETTER HELPER) Glucose 123(H) 70 - 99 mg/dL 05/24/2024 5:[address] [facility] Sodium 140 136 - 145 mmol/L 05/24/2024 5:[address] [facility] Potassium 4.3 3.5 - 5.1 mmol/L 05/24/2024 5:[address] [facility] Chloride 111(H) 98 - 107 mmol/L 05/24/2024 5:[address] [facility] CO2 23 22 - 29 mmol/L 05/24/2024 5:[address] [facility] Calcium 8.9 8.4 - 10.4 mg/dL 05/24/2024 5:[address] [facility] Anion Gap 6 6 - 16 mmol/L 05/24/2024 5:[address] [facility] BUN 26(H) 5.3 - 18.7 mg/dL 05/24/2024 5:[address] [facility] Creatinine 1.33(H) 0.72 - 1.25 mg/dL 05/24/2024 5:[address] [facility] Albumin 2.0(L) 3.4 - 5.0 gm/dL 05/24/2024 5:[address] [facility] Phosphorus 4.2 2.5 - 4.5 mg/dL 05/24/2024 5:[address] [facility] eGFR by CKD-EPI 68(L) >=90 mL/min/1.7 3 m2 05/24/2024 5:[address] [facility] Blood BLOOD SPECIMEN / Unknown Lab Venipuncture / Unknown 05/24/2024 5:08 AM MONUMENT SETTER HELPER 05/24/2024 5:22 AM [facility] Manpreet Stuart MD LAB - CHEMISTRY MELIDA Mcadams Organization Address City/State/ZIP Co de Phone Number [facility] [address] [place] [address] * (ABNORMAL) GLUCOSE - POINT OF CARE (05/23/2024 7:43 PM MONUMENT SETTER HELPER) Glucose WB/POC 170(H) 70 - 99 mg/dL 05/23/2024 7:52 PM MONUMENT SETTER HELPER [facility] Specimen Type Arterial 05/23/2024 7:52 PM MONUMENT SETTER HELPER [facility] Blood BLOOD SPECIMEN / Unknown 05/23/2024 7:43 PM MONUMENT SETTER HELPER 05/23/2024 7:52 PM MONUMENT SETTER HELPER Manpreet Stuart MD LAB - POINT OF CARE ORDERABLES Performing Organization Address City/[facility]/ZIP Co de Phone Number [facility] [address] [place] [phone] * (ABNORMAL) GLUCOSE - POINT OF CARE (05/23/2024 5:17 PM MONUMENT SETTER HELPER) Glucose WB/POC 176(H) 70 - 99 mg/dL 05/23/2024 7:52 PM MONUMENT SETTER HELPER [facility] Specimen Type Cap Fingerstick 2023 7:52 PM MONUMENT SETTER HELPER [facility] Blood BLOOD SPECIMEN / Unknown 05/23/2024 5:17 PM MONUMENT SETTER HELPER 05/23/2024 7:52 PM MONUMENT SETTER HELPER Manpreet Stuart MD LAB - POINT OF CARE ORDERABLES Performing Organization Address [facility] Co de Phone Number [facility] [address] [place] [address] * (ABNORMAL) GLUCOSE - POINT OF CARE (05/23/2024 11:46 AM MONUMENT SETTER HELPER) Glucose WB/POC 176(H) 70 - 99 mg/dL 05/24/2024 7:17 AM MONUMENT SETTER HELPER [facility] Specimen Type Cap Fingerstick 2023 7:17 AM MONUMENT SETTER HELPER [facility] Blood BLOOD SPECIMEN / Unknown 05/23/2024 11:46 AM MONUMENT SETTER HELPER 05/24/2024 7:17 AM MONUMENT SETTER HELPER Manpreet Stuart MD LAB - POINT OF CARE ORDERABLES Performing Organization Address City/[facility] Co de Phone Number [facility] [address] [place] [address] * (ABNORMAL) GLUCOSE - POINT OF CARE (05/23/2024 7:38 AM MONUMENT SETTER HELPER) Glucose WB/POC 156(H) 70 - 99 mg/dL 05/24/2024 12:[address] [facility] Specimen Type Cap Fingerstick 2023 12:[address] [facility] Blood BLOOD SPECIMEN / Unknown 05/23/2024 7:38 AM MONUMENT SETTER HELPER 05/24/2024 12:30 AM [employer]UMENT SETTER HELPER Manpreet Stuart MD LAB - POINT OF CARE ORDERABLES Performing Organization Address City/State/[facility] Co de Phone Number [facility] [address], [place] [phone] * (ABNORMAL) RENAL FUNCTION PANEL (05/23/2024 3:33 AM MONUMENT SETTER HELPER) Glucose 174(H) 70 - 99 mg/dL 05/23/2024 4:[address] [facility] Sodium 136 136 - 145 mmol/L 05/23/2024 4:[address] [facility] Potassium 5.3(H) 3.5 - 5.1 mmol/L 05/23/2024 4:[address] [facility] Chloride 109(H) 98 - 107 mmol/L 05/23/2024 4:[address] [facility] CO2 22 22 - 29 mmol/L 05/23/2024 4:[address] [facility] Calcium 8.8 8.4 - 10.4 mg/dL 05/23/2024 4:[address] [facility] Anion Gap 5(L) 6 - 16 mmol/L 05/23/2024 4:[address] [facility] BUN 28(H) 5.3 - 18.7 mg/dL 05/23/2024 4:[address] [facility] Creatinine 1.47(H) 0.72 - 1.25 mg/dL 05/23/2024 4:[address] [facility] Albumin 1.9(L) 3.4 - 5.0 gm/dL 05/23/2024 4:[address] [facility] Phosphorus 3.7 2.5 - 4.5 mg/dL 05/23/2024 4:24 AM MONUMENT SETTER HELPER [facility] eGFR by CKD-EPI 60(L) >=90 mL/min/1.7 3 m2 05/23/2024 4:24 AM MONUMENT SETTER HELPER [facility] Blood BLOOD SPECIMEN / Unknown Lab Venipuncture / Unknown 05/23/2024 3:33 AM MONUMENT SETTER HELPER 05/23/2024 3:45 AM [employer] SETTER HELPER Manpreet Stuart MD LAB - CHEMISTRY MELIDA COLLINS Performing Organization Address City/[facility]/ZIP Co de Phone Number [facility] [address] [place] [phone] * (ABNORMAL) GLUCOSE - POINT OF CARE (05/22/2024 9:22 PM MONUMENT SETTER HELPER) Glucose WB/POC 233(H) 70 - 99 mg/dL 05/23/2024 7:16 AM MONUMENT SETTER HELPER [facility] Specimen Type Cap Fingerstick 2023 7:16 AM MONUMENT SETTER HELPER [facility] Blood BLOOD SPECIMEN / Unknown 05/22/2024 9:22 PM MONUMENT SETTER HELPER 05/23/2024 7:16 AM [employer]UMENT SETTER HELPER Manpreet Stuart MD LAB - POINT OF CARE ORDERABLES Performing Organization Address [facility] Co de Phone Number [facility] [address] [place] [phone] * (ABNORMAL) GLUCOSE - POINT OF CARE (05/22/2024 5:29 PM MONUMENT SETTER HELPER) Glucose WB/POC 171(H) 70 - 99 mg/dL 05/22/2024 5:39 PM MONUMENT SETTER HELPER [facility] Specimen Type Cap Fingerstick 2023 5:39 PM MONUMENT SETTER HELPER [facility] Blood BLOOD SPECIMEN / Unknown 05/22/2024 5:29 PM MONUMENT SETTER HELPER 05/22/2024 5:39 PM MONUMENT SETTER HELPER Manpreet Stuart MD LAB - POINT OF CARE ORDERABLES Performing Organization Address [facility]/ZIP Co de Phone Number [facility] [address] [place] [address] * (ABNORMAL) GLUCOSE - POINT OF CARE (05/22/2024 12:15 PM MONUMENT SETTER HELPER) Glucose WB/POC 149(H) 70 - 99 mg/dL 05/22/2024 12:34 PM MONUMENT SETTER HELPER [facility] Specimen Type Cap Fingerstick 2023 12:34 PM MONUMENT SETTER HELPER [facility] Blood BLOOD SPECIMEN / Unknown 05/22/2024 12:15 PM MONUMENT SETTER HELPER 05/22/2024 12:34 PM MONUMENT SETTER HELPER Manpreet Stuart MD LAB - POINT OF CARE ORDERABLES [facility] [address] [place] [phone] * (ABNORMAL) GLUCOSE - POINT OF CARE (05/22/2024 7:20 AM MONUMENT SETTER HELPER) Glucose WB/POC 141(H) 70 - 99 mg/dL 05/22/2024 12:34 PM MONUMENT SETTER HELPER [facility] Specimen Type Cap Fingerstick 2023 12:34 PM MONUMENT SETTER HELPER [facility] Blood BLOOD SPECIMEN / Unknown 05/22/2024 7:20 AM MONUMENT SETTER HELPER 05/22/2024 12:34 PM MONUMENT SETTER HELPER Manpreet Stuart MD LAB - POINT OF CARE ORDERABLES Performing Organization Address City/[facility]/ZIP Co de Phone Number [facility] [address] [place] [phone] * (ABNORMAL) RENAL FUNCTION PANEL (05/22/2024 3:09 AM MONUMENT SETTER HELPER) Glucose 153(H) 70 - 99 mg/dL 05/22/2024 5:14 AM MONUMENT SETTER HELPER [facility] Sodium 136 136 - 145 mmol/L 05/22/2024 5:14 AM MONUMENT SETTER HELPER [facility] Potassium 4.7 3.5 - 5.1 mmol/L 05/22/2024 5:14 AM MONUMENT SETTER HELPER [facility] Chloride 108(H) 98 - 107 mmol/L 05/22/2024 5:14 AM MONUMENT SETTER HELPER [facility] CO2 23 22 - 29 mmol/L 05/22/2024 5:14 AM MONUMENT SETTER HELPER [facility] Calcium 8.6 8.4 - 10.4 mg/dL 05/22/2024 5:[address] [facility] Anion Gap 5(L) 6 - 16 mmol/L 05/22/2024 5:[address] [facility] BUN 28(H) 5.3 - 18.7 mg/dL 05/22/2024 5:[address] [facility] Creatinine 1.38(H) 0.72 - 1.25 mg/dL 05/22/2024 5:[address] [facility] Albumin 1.8(L) 3.4 - 5.0 gm/dL 05/22/2024 5:[address] [facility] Phosphorus 4.0 2.5 - 4.5 mg/dL 05/22/2024 5:[address] [facility] eGFR by CKD-EPI 65(L) >=90 mL/min/1.7 3 m2 05/22/2024 5:[address] [facility] Blood BLOOD SPECIMEN / Unknown Lab Venipuncture / Unknown 05/22/2024 3:09 AM MONUMENT SETTER HELPER 05/22/2024 4:36 AM MONUMENT SETTER HELPER Manpreet Stuart MD LAB - CHEMISTRY ORDE RABLES [facility] [address] [place] [phone] * (ABNORMAL) GLUCOSE - POINT OF CARE (05/21/2024 8:39 PM MONUMENT SETTER HELPER) Glucose WB/POC 178(H) 70 - 99 mg/dL 05/21/2024 11:11 PM MONUMENT SETTER HELPER [facility] Specimen Type Cap Fingerstick 2023 11:[address] [facility] Blood BLOOD SPECIMEN / Unknown 05/21/2024 8:39 PM MONUMENT SETTER HELPER 05/21/2024 11:11 PM MONUMENT SETTER HELPER Manpreet Stuart MD LAB - POINT OF CARE ORDERABLES [facility] [address] [place] [phone] * (ABNORMAL) GLUCOSE - POINT OF CARE (05/21/2024 5:12 PM MONUMENT SETTER HELPER) Glucose WB/POC 178(H) 70 - 99 mg/dL 05/21/2024 5:55 PM MONUMENT SETTER HELPER [facility] Specimen Type Cap Fingerstick 2023 5:55 PM MONUMENT SETTER HELPER [facility] Blood BLOOD SPECIMEN / Unknown 05/21/2024 5:12 PM MONUMENT SETTER HELPER 05/21/2024 5:55 PM MONUMENT SETTER HELPER Manpreet Stuart MD LAB - POINT OF CARE ORDERABLES Performing Organization Address [facility]/ZIP Co de Phone Number [facility] [address], [place] [phone] * (ABNORMAL) GLUCOSE - POINT OF CARE (05/21/2024 11:59 AM MONUMENT SETTER HELPER) Glucose WB/POC 149(H) 70 - 99 mg/dL 05/21/2024 12:48 PM MONUMENT SETTER HELPER [facility] Specimen Type Cap Fingerstick 2023 12:48 PM MONUMENT SETTER HELPER [facility] Blood BLOOD SPECIMEN / Unknown 05/21/2024 11:59 AM MONUMENT SETTER HELPER 05/21/2024 12:48 PM MONUMENT SETTER HELPER Manpreet Stuart MD LAB - POINT OF CARE ORDERABLES Performing Organization Address [facility] Co de Phone Number [facility] [address] [place] [address] * (ABNORMAL) GLUCOSE - POINT OF CARE (05/21/2024 7:47 AM MONUMENT SETTER HELPER) Glucose WB/POC 182(H) 70 - 99 mg/dL 05/21/2024 8:00 AM MONUMENT SETTER HELPER [facility] Specimen Type Cap Fingerstick 2023 8:00 AM MONUMENT SETTER HELPER [facility] Blood BLOOD SPECIMEN / Unknown 05/21/2024 7:47 AM MONUMENT SETTER HELPER 05/21/2024 8:00 AM [employer] SETTER HELPER Manpreet Stuart MD LAB - POINT OF CARE ORDERABLES [facility] [address] [place] [address] * (ABNORMAL) RENAL FUNCTION PANEL (05/21/2024 3:03 AM [facility]) Glucose 179(H) 70 - 99 mg/dL 05/21/2024 4:[address] [facility] Sodium 138 136 - 145 mmol/L 05/21/2024 4:[address] [facility] Potassium 5.2(H) 3.5 - 5.1 mmol/L 05/21/2024 4:[address] [facility] Chloride 110(H) 98 - 107 mmol/L 05/21/2024 4:[address] [facility] CO2 24 22 - 29 mmol/L 05/21/2024 4:[address] [facility] Calcium 8.8 8.4 - 10.4 mg/dL 05/21/2024 4:[address] [facility] Anion Gap 4(L) 6 - 16 mmol/L 05/21/2024 4:[address] [facility] BUN 29(H) 5.3 - 18.7 mg/dL 05/21/2024 4:[address] [facility] Creatinine 1.48(H) 0.72 - 1.25 mg/dL 05/21/2024 4:[address] [facility] Albumin 1.7(L) 3.4 - 5.0 gm/dL 05/21/2024 4:[address] [facility] Phosphorus 4.2 2.5 - 4.5 mg/dL 05/21/2024 4:[address] [facility] eGFR by CKD-EPI 59(L) >=90 mL/min/1.7 3 m2 05/21/2024 4:[address] [facility] Blood BLOOD SPECIMEN / Unknown Lab Venipuncture / Unknown 05/21/2024 3:03 AM MONUMENT SETTER HELPER 05/21/2024 3:14 AM [facility] Manpreet Stuart MD LAB - CHEMISTRY MELIDA COLLINS [facility] [address] [place] [address] * (ABNORMAL) GLUCOSE - POINT OF CARE (05/20/2024 7:40 PM MONUMENT SETTER HELPER) Glucose WB/POC 184(H) 70 - 99 mg/dL 05/20/2024 8:57 PM MONUMENT SETTER HELPER [facility] Specimen Type Arterial 05/20/2024 8:57 PM MONUMENT SETTER HELPER [facility] Blood BLOOD SPECIMEN / Unknown 05/20/2024 7:40 PM MONUMENT SETTER HELPER 05/20/2024 8:57 PM MONUMENT SETTER HELPER Manpreet Stuart MD LAB - POINT OF CARE ORDERABLES Performing Organization Address City/[facility]/ZIP Co de Phone Number [facility] [address] [place] [phone] * (ABNORMAL) GLUCOSE - POINT OF CARE (05/20/2024 5:59 PM MONUMENT SETTER HELPER) Glucose WB/POC 167(H) 70 - 99 mg/dL 05/20/2024 6:08 PM MONUMENT SETTER HELPER [facility] Specimen Type Cap Fingerstick 2023 6:08 PM MONUMENT SETTER HELPER [facility] Blood BLOOD SPECIMEN / Unknown 05/20/2024 5:59 PM MONUMENT SETTER HELPER 05/20/2024 6:08 PM MONUMENT SETTER HELPER Manpreet Stuart MD LAB - POINT OF CARE ORDERABLES Performing Organization Address [facility] Co de Phone Number [facility] [address] [place] [phone] * (ABNORMAL) GLUCOSE - POINT OF CARE (05/20/2024 4:42 PM MONUMENT SETTER HELPER) Glucose WB/POC 180(H) 70 - 99 mg/dL 05/20/2024 4:48 PM MONUMENT SETTER HELPER [facility] Specimen Type Cap Fingerstick 2023 4:48 PM MONUMENT SETTER HELPER [facility] Blood BLOOD SPECIMEN / Unknown 05/20/2024 4:42 PM MONUMENT SETTER HELPER 05/20/2024 4:48 PM MONUMENT SETTER HELPER Manpreet Stuart MD LAB - POINT OF CARE ORDERABLES [facility] [address] [place] [address] * CULTURE WOUND+GRAM STAIN (05/20/2024 2:58 PM MONUMENT SETTER HELPER) Culture Rare normal skin jero JEFF 05/22/2024 9:21 PM MONUMENT SETTER HELPER [facility] Gram Stain Moderate Polymorphonuclear cells 05/22/2024 9:21 PM MONUMENT SETTER HELPER [facility] Gram Stain No organisms seen 024 9:21 PM MONUMENT SETTER HELPER [facility] Microbiology ENTIRE FOOT / Unknown 05/20/2024 2:58 PM MONUMENT SETTER HELPER 05/20/2024 3:58 PM MONUMENT SETTER HELPER Comment:Pre-op diagnosis: Diagnosis unknown [R69] Narrative [facility] - 05/22/2024 9:21 PM MONUMENT SETTER HELPER Surgical Description: Left Foot Wound Culture Abby Quinn [facility] - MICROBIOLOGY O RDERABLES Performing Organization Address City/[facility]/ZIP Co de Phone Number [facility] [address] [place] [address], [facility] [phone] * CULTURE ANAEROBE (05/20/2024 2:58 PM MONUMENT SETTER HELPER) Culture No anaerobic organisms isolated JEFF 05/25/2024 3:37 PM MONUMENT SETTER HELPER [facility] Microbiology ENTIRE FOOT / Unknown 05/20/2024 2:58 PM MONUMENT SETTER HELPER 05/20/2024 3:58 PM MONUMENT SETTER HELPER Comment:Pre-op diagnosis: Diagnosis unknown [R69] Narrative [facility] - 05/25/2024 3:37 PM MONUMENT SETTER HELPER Surgical Description: Left Foot Wound Culture Abby Quinn [facility] - MICROBIOLOGY O RDERABLES [facility] [address] [place] [address], [facility] [phone] * (ABNORMAL) GLUCOSE - POINT OF CARE (05/20/2024 8:56 AM MONUMENT SETTER HELPER) Glucose WB/POC 181(H) 70 - 99 mg/dL 05/20/2024 9:05 AM MONUMENT SETTER HELPER [facility] Specimen Type Cap Fingerstick 2023 9:05 AM MONUMENT SETTER HELPER [facility] Blood BLOOD SPECIMEN / Unknown 05/20/2024 8:56 AM MONUMENT SETTER HELPER 05/20/2024 9:05 AM [facility] Manpreet Stuart MD LAB - POINT OF CARE ORDERABLES [facility] [address] [place] [address] * (ABNORMAL) RENAL FUNCTION PANEL (05/20/2024 3:09 AM [facility]) Pathologist [facility] Glucose 167(H) 70 - 99 mg/dL 05/20/2024 4:[address] [facility] Sodium 136 136 - 145 mmol/L 05/20/2024 4:[address] [facility] Potassium 4.8 3.5 - 5.1 mmol/L 05/20/2024 4:[address] [facility] Chloride 109(H) 98 - 107 mmol/L 05/20/2024 4:[address] [facility] CO2 23 22 - 29 mmol/L 05/20/2024 4:[address] [facility] Calcium 8.6 8.4 - 10.4 mg/dL 05/20/2024 4:[address] [facility] Anion Gap 4(L) 6 - 16 mmol/L 05/20/2024 4:[address] [facility] BUN 33(H) 5.3 - 18.7 mg/dL 05/20/2024 4:[address] [facility] Creatinine 1.44(H) 0.72 - 1.25 mg/dL 05/20/2024 4:[address] [facility] Albumin 1.7(L) 3.4 - 5.0 gm/dL 05/20/2024 4:[address] [facility] Phosphorus 3.3 2.5 - 4.5 mg/dL 05/20/2024 4:[address] [facility] eGFR by CKD-EPI 61(L) >=90 mL/min/1.7 3 m2 05/20/2024 4:[address] [facility] Blood BLOOD SPECIMEN / Unknown Lab Venipuncture / Unknown 05/20/2024 3:09 AM MONUMENT SETTER HELPER 05/20/2024 3:49 AM MONUMENT SETTER HELPER Manpreet Stuart MD LAB - CHEMISTRY MELIDA COLLINS Performing Organization Address City/[facility]/ZIP Co de Phone Number [facility] [address] [place] [phone] * (ABNORMAL) GLUCOSE - POINT OF CARE (05/19/2024 10:16 PM MONUMENT SETTER HELPER) Glucose WB/POC 172(H) 70 - 99 mg/dL 05/20/2024 12:23 AM MONUMENT SETTER HELPER [facility] Specimen Type Cap Fingerstick 2023 12:23 AM MONUMENT SETTER HELPER [facility] Blood BLOOD SPECIMEN / Unknown 05/19/2024 10:16 PM MONUMENT SETTER HELPER 05/20/2024 12:23 AM MONUMENT SETTER HELPER Manpreet Stuart MD LAB - POINT OF CARE ORDERABLES Performing Organization Address [facility] Co de Phone Number [facility] [address] [place] [phone] * (ABNORMAL) GLUCOSE - POINT OF CARE (05/19/2024 8:17 PM MONUMENT SETTER HELPER) Glucose WB/POC 186(H) 70 - 99 mg/dL 05/19/2024 8:27 PM MONUMENT SETTER HELPER [facility] Specimen Type Cap Fingerstick 2023 8:27 PM MONUMENT SETTER HELPER [facility] Blood BLOOD SPECIMEN / Unknown 05/19/2024 8:17 PM MONUMENT SETTER HELPER 05/19/2024 8:27 PM MONUMENT SETTER HELPER Manpreet Stuart MD LAB - POINT OF CARE ORDERABLES [facility] [address] [place] [phone] * (ABNORMAL) GLUCOSE - POINT OF CARE (05/19/2024 5:11 PM MONUMENT SETTER HELPER) Glucose WB/POC 173(H) 70 - 99 mg/dL 05/19/2024 8:21 PM MONUMENT SETTER HELPER [facility] Specimen Type Cap Fingerstick 2023 8:21 PM MONUMENT SETTER HELPER [facility] Blood BLOOD SPECIMEN / Unknown 05/19/2024 5:11 PM MONUMENT SETTER HELPER 05/19/2024 8:20 PM MONUMENT SETTER HELPER Manpreet Stuart MD LAB - POINT OF CARE ORDERABLES Performing Organization Address [facility] Co de Phone Number [facility] [address] [place] [phone] * (ABNORMAL) GLUCOSE - POINT OF CARE (05/19/2024 12:03 PM MONUMENT SETTER HELPER) Glucose WB/POC 177(H) 70 - 99 mg/dL 05/19/2024 12:15 PM MONUMENT SETTER HELPER [facility] Specimen Type Cap Fingerstick 2023 12:15 PM MONUMENT SETTER HELPER [facility] Blood BLOOD SPECIMEN / Unknown 05/19/2024 12:03 PM MONUMENT SETTER HELPER 05/19/2024 12:15 PM MONUMENT SETTER HELPER Manpreet Stuart MD LAB - POINT OF CARE ORDERABLES Performing Organization Address [facility] Co de Phone Number [facility] [address] [place] [phone] * (ABNORMAL) GLUCOSE - POINT OF CARE (05/19/2024 7:29 AM MONUMENT SETTER HELPER) Glucose WB/POC 172(H) 70 - 99 mg/dL 05/19/2024 7:47 AM MONUMENT SETTER HELPER [facility] Specimen Type Cap Fingerstick 2023 7:47 AM MONUMENT SETTER HELPER [facility] Blood BLOOD SPECIMEN / Unknown 05/19/2024 7:29 AM MONUMENT SETTER HELPER 05/19/2024 7:46 AM MONUMENT SETTER HELPER Manpreet Stuart MD LAB - POINT OF CARE ORDERABLES Performing Organization Address [facility] Co de Phone Number [facility] [address] [place] [phone] * (ABNORMAL) RENAL FUNCTION PANEL (05/19/2024 2:16 AM MONUMENT SETTER HELPER) Glucose 190(H) 70 - 99 mg/dL 05/19/2024 3:31 AM MONUMENT SETTER HELPER [facility] Sodium 136 136 - 145 mmol/L 05/19/2024 3:[address] [facility] Potassium 5.2(H) 3.5 - 5.1 mmol/L 05/19/2024 3:[address] [facility] Chloride 110(H) 98 - 107 mmol/L 05/19/2024 3:[address] [facility] CO2 20(L) 22 - 29 mmol/L 05/19/2024 3:[address] [facility] Calcium 8.6 8.4 - 10.4 mg/dL 05/19/2024 3:[address] [facility] Anion Gap 6 6 - 16 mmol/L 05/19/2024 3:[address] [facility] BUN 36(H) 5.3 - 18.7 mg/dL 05/19/2024 3:[address] [facility] Creatinine 1.58(H) 0.72 - 1.25 mg/dL 05/19/2024 3:[address] [facility] Albumin 1.6(L) 3.4 - 5.0 gm/dL 05/19/2024 3:[address] [facility] Phosphorus 3.4 2.5 - 4.5 mg/dL 05/19/2024 3:[address] [facility] eGFR by CKD-EPI 55(L) >=90 mL/min/1.7 3 m2 05/19/2024 3:[address] [facility] Blood BLOOD SPECIMEN / Unknown Lab Venipuncture / Unknown 05/19/2024 2:16 AM [employer] 05/19/2024 2:34 AM [facility] Manpreet Stuart MD LAB - CHEMISTRY [facility]EL[facility]LL[facility] [address] [place] [address] * (ABNORMAL) GLUCOSE - POINT OF CARE (05/18/2024 7:46 PM [employer]) Glucose WB/POC 249(H) 70 - 99 mg/dL 05/18/2024 7:[address] [facility] Specimen Type Arterial 05/18/2024 7:[address] [facility] Blood BLOOD SPECIMEN / Unknown 05/18/2024 7:46 PM [employer] 05/18/2024 7:56 PM [employer] Manpreet Stuart MD LAB - POINT OF CARE ORDERABLES Performing Organization Address City/[facility]/ZIP Co de Phone Number [facility] [address] [place] [id number] * (ABNORMAL) GLUCOSE - POINT OF CARE (05/18/2024 6:07 PM [employer]) Glucose WB/POC 254(H) 70 - 99 mg/dL 05/20/2024 8:25 AM [employer] [facility] Specimen Type Cap Fingerstick 2023 8:25 AM [employer] [facility] Blood BLOOD SPECIMEN / Unknown 05/18/2024 6:07 PM [employer] 05/20/2024 8:25 AM [employer] Manpreet Stuart MD LAB - POINT OF CARE ORDERABLES Performing Organization Address [facility] Co de Phone Number [facility] [address] [place], [place] [phone] * (ABNORMAL) GLUCOSE - POINT OF CARE (05/18/2024 11:58 AM MONUMENT SETTER HELPER) Glucose WB/POC 200(H) 70 - 99 mg/dL 05/18/2024 4:49 PM MONUMENT SETTER HELPER [facility] Specimen Type Cap Fingerstick 2023 4:49 PM MONUMENT SETTER HELPER [facility] Blood BLOOD SPECIMEN / Unknown 05/18/2024 11:58 AM MONUMENT SETTER HELPER 05/18/2024 4:49 PM MONUMENT SETTER HELPER Manpreet Stuart MD LAB - POINT OF CARE ORDERABLES Performing Organization Address [facility] Co de Phone Number [facility] [address] [place] [phone] * (ABNORMAL) GLUCOSE - POINT OF CARE (05/18/2024 9:20 AM MONUMENT SETTER HELPER) Glucose WB/POC 191(H) 70 - 99 mg/dL 05/18/2024 10:13 AM MONUMENT SETTER HELPER [facility] Specimen Type Cap Fingerstick 2023 10:13 AM MONUMENT SETTER HELPER [facility] Blood BLOOD SPECIMEN / Unknown 05/18/2024 9:20 AM MONUMENT SETTER HELPER 05/18/2024 10:13 AM MONUMENT SETTER HELPER Manpreet Stuart MD LAB - POINT OF CARE ORDERABLES Performing Organization Address City/[facility]/ZIP Co de Phone Number [facility] [address] [place] [phone] * (ABNORMAL) GLUCOSE - POINT OF CARE (05/18/2024 7:42 AM MONUMENT SETTER HELPER) Glucose WB/POC 197(H) 70 - 99 mg/dL 05/18/2024 7:[address] [facility] Specimen Type Cap Fingerstick 2023 7:[address] [facility] Blood BLOOD SPECIMEN / Unknown 05/18/2024 7:42 AM MONUMENT SETTER HELPER 05/18/2024 7:56 AM MONUMENT SETTER HELPER Manpreet Stuart MD LAB - POINT OF CARE ORDERABLES Performing Organization Address City/[facility] Co de Phone Number [facility] [address] [place] [phone] * (ABNORMAL) RENAL FUNCTION PANEL (05/18/2024 3:38 AM MONUMENT SETTER HELPER) Glucose 233(H) 70 - 99 mg/dL 05/18/2024 5:[address] [facility] Sodium 136 136 - 145 mmol/L 05/18/2024 5:[address] [facility] Potassium 4.7 3.5 - 5.1 mmol/L 05/18/2024 5:[address] [facility] Chloride 111(H) 98 - 107 mmol/L 05/18/2024 5:[address] [facility] CO2 21(L) 22 - 29 mmol/L 05/18/2024 5:[address] [facility] Calcium 8.1(L) 8.4 - 10.4 mg/dL 05/18/2024 5:[address] [facility] Anion Gap 4(L) 6 - 16 mmol/L 05/18/2024 5:[address] [facility] BUN 35(H) 5.3 - 18.7 mg/dL 05/18/2024 5:[address] [facility] Creatinine 1.62(H) 0.72 - 1.25 mg/dL 05/18/2024 5:[address] [facility] Albumin 1.5(L) 3.4 - 5.0 gm/dL 05/18/2024 5:[address] [facility] Phosphorus 3.3 2.5 - 4.5 mg/dL 05/18/2024 5:[address] [facility] eGFR by CKD-EPI 53(L) >=90 mL/min/1.7 3 m2 05/18/2024 5:[address] [facility] Blood BLOOD SPECIMEN / Unknown Lab Venipuncture / Unknown 05/18/2024 3:38 AM MONUMENT SETTER HELPER 05/18/2024 4:20 AM MONUMENT SETTER HELPER Manpreet Stuart MD LAB - CHEMISTRY MELIDA COLLINS [facility] Organization Address City/State/[facility] Co de Phone Number [facility] [address] [place] [address] * (ABNORMAL) CBC W/O DIFFERENTIAL (05/18/2024 3:38 AM MONUMENT SETTER HELPER) WBC 14.5(H) 4.0 - 10.7 x10E9/L 05/18/2024 4:[address] [facility] RBC Count 2.76(L) 4.30 - 5.80 x10E12/L 05/18/2024 4:[address] [facility] Hemoglobin 7.7(L) 13.3 - 17.5 g/dL 05/18/2024 4:[address] [facility] Hematocrit 24.7(L) 38.7 - 51.1 % 05/18/2024 4:[address] [facility] MCV 89.5 80.0 - 98.0 fL 05/18/2024 4:[address] [facility] MCH 27.9 26.7 - 33.6 pg 05/18/2024 4:[address] [facility] MCHC 31.2(L) 31.7 - 36.3 g/dL 05/18/2024 4:40 AM MONUMENT SETTER HELPER [facility] RDW-CV 13.8 11.3 - 14.8 % 05/18/2024 4:40 AM MONUMENT SETTER HELPER [facility] Platelet Count 330 150 - 420 x10E9/L 05/18/2024 4:40 AM MONUMENT SETTER HELPER [facility] MPV 8.6 7.8 - 11.4 fL 05/18/2024 4:40 AM MONUMENT SETTER HELPER [facility] Blood BLOOD SPECIMEN / Unknown Lab Venipuncture / Unknown 05/18/2024 3:38 AM MONUMENT SETTER HELPER 05/18/2024 4:20 AM MONUMENT SETTER HELPER Manpreet Stuart MD LAB - HEMATOLOGY ORD ERABLES [facility] [address] [place] [phone] * (ABNORMAL) GLUCOSE - POINT OF CARE (05/17/2024 11:12 PM MONUMENT SETTER HELPER) Glucose WB/POC 246(H) 70 - 99 mg/dL 05/18/2024 4:44 AM MONUMENT SETTER HELPER [facility] Specimen Type Cap Fingerstick 2023 4:44 AM MONUMENT SETTER HELPER [facility] Blood BLOOD SPECIMEN / Unknown 05/17/2024 11:12 PM MONUMENT SETTER HELPER 05/18/2024 4:44 AM MONUMENT SETTER HELPER Manpreet Stuart MD LAB - POINT OF CARE ORDERABLES [facility] [address] [place] [phone] * (ABNORMAL) GLUCOSE - POINT OF CARE (05/17/2024 10:29 PM MONUMENT SETTER HELPER) Glucose WB/POC 252(H) 70 - 99 mg/dL 05/20/2024 8:25 AM MONUMENT SETTER HELPER [facility] Specimen Type Cap Fingerstick 2023 8:25 AM MONUMENT SETTER HELPER [facility] Blood BLOOD SPECIMEN / Unknown 05/17/2024 10:29 PM MONUMENT SETTER HELPER 05/20/2024 8:25 AM MONUMENT SETTER HELPER Manpreet Stuart MD LAB - POINT OF CARE ORDERABLES Performing Organization Address [facility] Co de Phone Number [facility] [address] [place] [phone] * (ABNORMAL) GLUCOSE - POINT OF CARE (05/17/2024 6:02 PM MONUMENT SETTER HELPER) Glucose WB/POC 236(H) 70 - 99 mg/dL 05/20/2024 8:25 AM MONUMENT SETTER HELPER [facility] Specimen Type Cap Fingerstick 2023 8:25 AM MONUMENT SETTER HELPER [facility] Blood BLOOD SPECIMEN / Unknown 05/17/2024 6:02 PM MONUMENT SETTER HELPER 05/20/2024 8:25 AM MONUMENT SETTER HELPER Manpreet Stuart MD LAB - POINT OF CARE ORDERABLES Performing Organization Address [facility] de Phone Number [facility] [address] [place] [phone] * (ABNORMAL) PROTEIN CREATININE RATIO URINE RANDOM PNL (05/17/2024 1:14 PM MONUMENT SETTER HELPER) Protein Urine 54.6(H) <11.9 mg/dL 05/17/2024 1:53 PM MONUMENT SETTER HELPER [facility] Creatinine Urine 77.41 mg/dL 05/17/2024 1:53 PM MONUMENT SETTER HELPER [facility] Protein/Creatin ine Ratio Urine 0.71 05/17/2024 1:53 PM MONUMENT SETTER HELPER [facility] Urine URINE SPECIMEN OBTAINED BY CLEAN CATCH PROCEDURE / Unknown Collection / Unknown 05/17/2024 1:14 PM MONUMENT SETTER HELPER 05/17/2024 1:31 PM MONUMENT SETTER HELPER Katerina Weaver DO LAB - URINE CHEMISTR Y ORDERABLES Performing Organization Address [facility] Co de Phone Number [facility] [address] [place] [phone] * VAS Arterial Ankle Arm Index (05/17/2024 12:04 PM MONUMENT SETTER HELPER) Anatomical Region Laterality Modality Ankle / Foot, Upper Extremity Ul trasound 05/17/2024 11:1 9 AM MONUMENT SETTER HELPER Narrative Procedure Note Gerry Villalobos MD - 05/17/2024 [place] [id number] Lower Extremity Arterial Doppler Report Pat.Name: RENE HYATT Pat.ID: [id number] .Date: 05/17/2024 Exam Time: 11:19:00 AM Study Type:MONO/PVR Age: 11 1980,43Y Sex: MALE Sonogrphr: Marina Calderón, [place], [facility] Pat. Stat.:Inpatient Reason for Study: Left foot wound for months, little improvement History / Clinical: Hypertension, Diabetes, Morbid obesity Procedures: Ankle Arm Index Visit ID: [id number] ++++++++++++++++++++++++++++++++++++ SUMMARY: ++++++++++++++++++++++++++++++++++++ No evidence for significant arterial insufficiency of either the right or left lower extremity at rest. Bilateral digital tracings are pulsatile. IGerry MD, RPVI, Vascular & Interventional radiologist, reviewed [...] 1st Digit GreatToe P 162 mmHg Right MONO (DP) MONO (DP) 1.2 Right MONO (PT) MONO (PT) 1.2 Right Ankle DP AnkleDP P 187 mmHg Right Ankle PT AnklePT P 183 mmHg Right Brachial Brach P 145 mmHg Right DBI DBI 1 Left 1st Digit GreatToe P 115 mmHg Left MONO (DP) MONO (DP) 1 Left MONO (PT) MONO (PT) 1 Left Ankle DP AnkleDP P 164 mmHg Left Ankle PT AnklePT P 159 mmHg Left Brachial Brach P 158 mmHg Left DBI DBI 0.73 Signed 05/17/2024 05:01 PM Gerry Ace MD Zana Tolentino MD VASCULAR LAB ORDERAB LES * (ABNORMAL) GLUCOSE - POINT OF CARE (05/17/2024 11:57 AM MONUMENT SETTER HELPER) [facility] Glucose WB/POC 236(H) 70 - 99 mg/dL 05/17/2024 12:44 PM MONUMENT SETTER HELPER [facility] Specimen Type Cap Fingerstick 2023 12:44 PM MONUMENT SETTER HELPER [facility] Blood BLOOD SPECIMEN / Unknown 05/17/2024 11:57 AM MONUMENT SETTER HELPER 05/17/2024 12:44 PM MONUMENT SETTER HELPER Manpreet Stuart MD LAB - POINT OF CARE ORDERABLES Performing Organization Address City/State/[facility] Co de Phone Number [facility] [address] [place] [address] * (ABNORMAL) CBC W/O DIFFERENTIAL (05/17/2024 9:46 AM MONUMENT SETTER HELPER) [facility] WBC 15.5(H) 4.0 - 10.7 x10E9/L 05/17/2024 10:02 AM MONUMENT SETTER HELPER [facility] RBC Count 2.57(L) 4.30 - 5.80 x10E12/L 05/17/2024 10:02 AM MONUMENT SETTER HELPER [facility] Hemoglobin 7.1(L) 13.3 - 17.5 g/dL 05/17/2024 10:[address] [facility] Hematocrit 23.2(L) 38.7 - 51.1 % 05/17/2024 10:[address] [facility] MCV 90.3 80.0 - 98.0 fL 05/17/2024 10:[address] [facility] MCH 27.6 26.7 - 33.6 pg 05/17/2024 10:[address] [facility] MCHC 30.6(L) 31.7 - 36.3 g/dL 05/17/2024 10:[address] [facility] RDW-CV 14.0 11.3 - 14.8 % 05/17/2024 10:[address] [facility] Platelet Count 284 150 - 420 x10E9/L 05/17/2024 10:[address] [facility] MPV 8.6 7.8 - 11.4 fL 05/17/2024 10:[address] [facility] Blood BLOOD SPECIMEN / Unknown Lab Venipuncture / Unknown 05/17/2024 9:46 AM MONUMENT SETTER HELPER 05/17/2024 9:54 AM MONUMENT SETTER HELPER Manpreet Stuart MD LAB - HEMATOLOGY ORD ERABLES [facility] [address] [place] [phone] * (ABNORMAL) GLUCOSE - POINT OF CARE (05/17/2024 7:57 AM MONUMENT SETTER HELPER) Pathologist [facility] Glucose WB/POC 254(H) 70 - 99 mg/dL 05/27/2024 7:[address] [facility] Specimen Type Cap Fingerstick 2023 7:[address] [facility] Blood BLOOD SPECIMEN / Unknown 05/17/2024 7:57 AM MONUMENT SETTER HELPER 05/27/2024 7:26 PM MONUMENT SETTER HELPER Manpreet Stuart MD LAB - POINT OF CARE ORDERABLES [facility] [address] [place] [phone] * COMPLEMENT C4 (05/17/2024 5:00 AM MONUMENT SETTER HELPER) Pathologist [facility] Complement C4 19 15 - 57 mg/dL 05/17/2024 10:52 AM MONUMENT SETTER HELPER [facility] Blood BLOOD SPECIMEN / Unknown Lab Venipuncture / Unknown 05/17/2024 5:00 AM MONUMENT SETTER HELPER 05/17/2024 5:57 AM MONUMENT SETTER HELPER Katerina Weaver DO LAB - SEROLOGY ORDER MARA [address] [address], [facility] [phone] * COMPLEMENT C3 (05/17/2024 5:00 AM MONUMENT SETTER HELPER) Complement C3 100 82 - 193 mg/dL 05/17/2024 10:52 AM MONUMENT SETTER HELPER [facility] Blood BLOOD SPECIMEN / Unknown Lab Venipuncture / Unknown 05/17/2024 5:00 AM MONUMENT SETTER HELPER 05/17/2024 5:57 AM MONUMENT SETTER HELPER Katerina Weaver DO LAB - CHEMISTRY ORDE RABLES [address] [address], [facility] [phone] * (ABNORMAL) BASIC METABOLIC PANEL (CALCIUM TOTAL) (05/17/2024 5:00 AM MONUMENT SETTER HELPER) Glucose 207(H) 70 - 99 mg/dL 05/17/2024 6:[address] [facility] Sodium 135(L) 136 - 145 mmol/L 05/17/2024 6:[address] [facility] Potassium 4.2 3.5 - 5.1 mmol/L 05/17/2024 6:[address] [facility] Chloride 107 98 - 107 mmol/L 05/17/2024 6:[address] [facility] CO2 20(L) 22 - 29 mmol/L 05/17/2024 6:[address] [facility] Calcium 7.9(L) 8.4 - 10.4 mg/dL 05/17/2024 6:[address] [facility] Anion Gap 8 6 - 16 mmol/L 05/17/2024 6:[address] [facility] BUN 37(H) 5.3 - 18.7 mg/dL 05/17/2024 6:[address] [facility] Creatinine 1.83(H) 0.72 - 1.25 mg/dL 05/17/2024 6:[address] [facility] eGFR by CKD-EPI 46(L) >=90 mL/min/1.7 3 m2 05/17/2024 6:26 AM MONUMENT SETTER HELPER [facility] Blood BLOOD SPECIMEN / Unknown Lab Venipuncture / Unknown 05/17/2024 5:00 AM MONUMENT SETTER HELPER 05/17/2024 5:57 AM MONUMENT SETTER HELPER Katerina Weaver DO LAB - CHEMISTRY MELIDA COLLINS [facility] [address] [place], [place] [id number] * (ABNORMAL) GLUCOSE - POINT OF CARE (05/16/2024 9:36 PM MONUMENT SETTER HELPER) Glucose WB/POC 317(H) 70 - 99 mg/dL 05/26/2024 8:46 PM MONUMENT SETTER HELPER [facility] Specimen Type Arterial 05/26/2024 8:46 PM MONUMENT SETTER HELPER [facility] Blood BLOOD SPECIMEN / Unknown 05/16/2024 9:36 PM MONUMENT SETTER HELPER 05/26/2024 8:46 PM MONUMENT SETTER HELPER Zana Tolentino MD LAB - POINT OF CARE ORDERABLES [facility] [address] [place], [place] [phone] * (ABNORMAL) GLUCOSE - POINT OF CARE (05/16/2024 6:18 PM MONUMENT SETTER HELPER) Glucose WB/POC 231(H) 70 - 99 mg/dL 05/27/2024 7:26 PM MONUMENT SETTER HELPER [facility] Specimen Type Cap Fingerstick 2023 7:26 PM MONUMENT SETTER HELPER [facility] Blood BLOOD SPECIMEN / Unknown 05/16/2024 6:18 PM MONUMENT SETTER HELPER 05/27/2024 7:26 PM MONUMENT SETTER HELPER Zana Tolentino MD LAB - POINT OF CARE ORDERABLES [facility] [address] [place] [address] * MRI Foot Left Wo Contrast (05/16/2024 5:20 PM MONUMENT SETTER HELPER) Anatomical Region Laterality Modality Ankle / Foot Magnetic Resonan ce 05/17/2024 8:48 AM MONUMENT SETTER HELPER Impressions 05/17/2024 9:04 AM MONUMENT SETTER HELPER IMPRESSION: 1. ??Large soft tissue wound//debridement surrounding the calcaneus and extending to bone. 2. ??There is mild osteomyelitis in the lateral calcaneal tubercle. ??However most of the calcaneal marrow changes are likely reactive. 3. ??No visible abscess. 4. ??Detached peroneal tendons. 5. ??Other findings as described > Interpreting Provider: Gila Licea MD on 05/17/2024 9:04 AM Narrative 05/17/2024 9:04 AM MONUMENT SETTER HELPER PROCEDURE: ??MRI FOOT LEFT WO CONTRAST DATE/TIME [...] TO MICROSCOPIC NO CULTURE (05/16/2024 12:57 PM MONUMENT SETTER HELPER) Color UA Yellow Yellow, Straw 05/16/2024 1:17 PM MONUMENT SETTER HELPER [facility] Clarity UA Turbid(A) Clear 05/16/2024 1:17 PM MONUMENT SETTER HELPER [facility] Glucose UA Normal Normal 05/16/2024 1:17 PM MONUMENT SETTER HELPER [facility] Bilirubin UA Negative Negative 05/16/2024 1:17 PM MONUMENT SETTER HELPER [facility] Ketone UA Trace(A) Negative 05/16/2024 1:17 PM MONUMENT SETTER HELPER [facility] Specific Kalida UA 1.016 1.005 - 1.030 05/16/2024 1:17 PM MONUMENT SETTER HELPER [facility] Blood UA 2+(A) Negative 05/16/2024 1:17 PM MONUMENT SETTER HELPER [facility] pH UA 5.5 5.0 - 9.0 pH 05/16/2024 1:17 PM MONUMENT SETTER HELPER [facility] Protein UA 1+(A) Negative 05/16/2024 1:17 PM MONUMENT SETTER HELPER [facility] Urobilinogen UA Normal Normal mg/dL 05/16/2024 1:17 PM MONUMENT SETTER HELPER [facility] Nitrite UA Negative Negative 05/16/2024 1:17 PM MONUMENT SETTER HELPER [facility] Leukocyte UA 75 MIKKI/uL(A) Negative 05/16/2024 1:17 PM MONUMENT SETTER HELPER [facility] RBC UA None Seen 0 - 5 # /hpf 05/16/2024 1:17 PM MONUMENT SETTER HELPER [facility] WBC UA 6-10(A) 0 - 5 # /hpf 05/16/2024 1:17 PM MONUMENT SETTER HELPER [facility] Bacteria UA None Seen None Seen 05/16/2024 1:17 PM MONUMENT SETTER HELPER [facility] Squamous Epithelial Cells 0-2 0 - 5 /hpf 05/16/2024 1:17 PM MONUMENT SETTER HELPER [facility] Budding Yeast Few(A) None seen /hpf 05/16/2024 1:17 PM MONUMENT SETTER HELPER [facility] Urine URINE SPECIMEN OBTAINED BY CLEAN CATCH PROCEDURE / Unknown Collection / Unknown 05/16/2024 12:57 PM MONUMENT SETTER HELPER 05/16/2024 1:04 PM MONUMENT SETTER HELPER Narrative [facility] - 05/16/2024 1:17 PM MONUMENT SETTER HELPER Katerina Weaver DO LAB - URINALYSIS ORD ERABLES Performing Organization Address City/[facility]/ZIP Co de Phone Number [facility] [address] [place] [phone] * (ABNORMAL) GLUCOSE - POINT OF CARE (05/16/2024 11:07 AM MONUMENT SETTER HELPER) Glucose WB/POC 208(H) 70 - 99 mg/dL 05/16/2024 12:12 PM MONUMENT SETTER HELPER [facility] Specimen Type Cap Fingerstick 2023 12:12 PM MONUMENT SETTER HELPER [facility] Blood BLOOD SPECIMEN / Unknown 05/16/2024 11:07 AM MONUMENT SETTER HELPER 05/16/2024 12:12 PM MONUMENT SETTER HELPER Zana Tolentino MD LAB - POINT OF CARE ORDERABLES Performing Organization Address [facility]/ZIP Co de Phone Number [facility] [address] [place] [phone] * (ABNORMAL) VANCOMYCIN LEVEL PEAK (05/16/2024 9:04 AM MONUMENT SETTER HELPER) Vancomycin Peak 40.3(H) 25.0 - 40.0 ug/mL 05/16/2024 9:26 AM MONUMENT SETTER HELPER [facility] Blood BLOOD SPECIMEN / Unknown Lab Venipuncture / Unknown 05/16/2024 9:04 AM MONUMENT SETTER HELPER 05/16/2024 9:06 AM MONUMENT SETTER HELPER Hattie Liao MD LAB - CHEMISTRY MELIDA COLLINS Performing Organization Address City/[facility]/ZIP Co de Phone Number [facility] [address] [place] [phone] * (ABNORMAL) GLUCOSE - POINT OF CARE (05/16/2024 7:53 AM MONUMENT SETTER HELPER) Glucose WB/POC 222(H) 70 - 99 mg/dL 05/16/2024 8:[address] [facility] Specimen Type Cap Fingerstick 2023 8:[address] [facility] Blood BLOOD SPECIMEN / Unknown 05/16/2024 7:53 AM MONUMENT SETTER HELPER 05/16/2024 8:07 AM MONUMENT SETTER HELPER Zana Tolentino MD LAB - POINT OF CARE ORDERABLES Performing Organization Address City/[facility]/ZIP Co de Phone Number [facility] [address] [place] [address] * (ABNORMAL) DIFFERENTIAL MANUAL (05/16/2024 3:09 AM MONUMENT SETTER HELPER) [facility] Neutrophil % 88(H) 41 - 74 % 05/16/2024 4:[address] [facility] Lymphocyte % 7(L) 17 - 47 % 05/16/2024 4:[address] [facility] Monocyte % 4 3 - 11 % 05/16/2024 4:[address] [facility] Myelocyte % 1(H) 0% % 05/16/2024 4:[address] [facility] Neutrophil Absolute 19.10(H) 1.60 - 7.50 x10E9/L 05/16/2024 4:[address] [facility] Lymphocyte Absolute 1.52 1.00 - 4.40 x10E9/L 05/16/2024 4:[address] [facility] Monocyte Absolute 0.87 0.15 - 1.00 x10E9/L 05/16/2024 4:[address] [facility] RBC Morphology NORMAL 05/16/2024 4:[address] [facility] Platelet Morphology NORMAL 05/16/2024 4:[address] [facility] Blood BLOOD SPECIMEN / Unknown Lab Venipuncture / Unknown 05/16/2024 3:09 AM MONUMENT SETTER HELPER 05/16/2024 4:09 AM MONUMENT SETTER HELPER Nicanor Richter MD LAB - HEMATOLOGY ORDERABLES [facility] [address] [place] [phone] * (ABNORMAL) RENAL FUNCTION PANEL (05/16/2024 3:09 AM [facility]) Glucose 185(H) 70 - 99 mg/dL 05/16/2024 4:[address] [facility] Sodium 133(L) 136 - 145 mmol/L 05/16/2024 4:[address] [facility] Potassium 4.2 3.5 - 5.1 mmol/L 05/16/2024 4:[address] [facility] Chloride 107 98 - 107 mmol/L 05/16/2024 4:[address] [facility] CO2 19(L) 22 - 29 mmol/L 05/16/2024 4:[address] [facility] Calcium 8.0(L) 8.4 - 10.4 mg/dL 05/16/2024 4:[address] [facility] Anion Gap 7 6 - 16 mmol/L 05/16/2024 4:[address] [facility] BUN 35(H) 5.3 - 18.7 mg/dL 05/16/2024 4:[address] [facility] Creatinine 2.01(H) 0.72 - 1.25 mg/dL 05/16/2024 4:[address] [facility] Albumin 1.4(L) 3.4 - 5.0 gm/dL 05/16/2024 4:[address] [facility] Phosphorus 4.5 2.5 - 4.5 mg/dL 05/16/2024 4:[address] [facility] eGFR by CKD-EPI 41(L) >=90 mL/min/1.7 3 m2 05/16/2024 4:[address] [facility] Blood BLOOD SPECIMEN / Unknown Lab Venipuncture / Unknown 05/16/2024 3:09 AM [employer] 05/16/2024 4:04 AM [facility] Nicanor Richter MD LAB - CHEMISTRY ORDERABLES [facility] [address] [place] [address] * (ABNORMAL) CBC W AUTO DIFFERENTIAL (05/16/2024 3:09 AM [employer]) Pathologist [facility] WBC 21.7(H) 4.0 - 10.7 x10E9/L 05/16/2024 4:[address] [facility] RBC Count 2.62(L) 4.30 - 5.80 x10E12/L 05/16/2024 4:[address] [facility] Hemoglobin 7.3(L) 13.3 - 17.5 g/dL 05/16/2024 4:[address] [facility] Hematocrit 23.6(L) 38.7 - 51.1 % 05/16/2024 4:[address] [facility] MCV 90.1 80.0 - 98.0 fL 05/16/2024 4:[address] [facility] MCH 27.9 26.7 - 33.6 pg 05/16/2024 4:[address] [facility] MCHC 30.9(L) 31.7 - 36.3 g/dL 05/16/2024 4:[address] [facility] RDW-CV 13.9 11.3 - 14.8 % 05/16/2024 4:[address] [facility] Platelet Count 300 150 - 420 x10E9/L 05/16/2024 4:[address] [facility] MPV 9.3 7.8 - 11.4 fL 05/16/2024 4:[address] [facility] Blood BLOOD SPECIMEN / Unknown Lab Venipuncture / Unknown 05/16/2024 3:09 AM [employer] 05/16/2024 4:09 AM [facility] Nicanor Richter MD LAB - HEMATOLOGY ORDERABLES [facility] [address], [place] [id number] * (ABNORMAL) GLUCOSE - POINT OF CARE (05/15/2024 8:43 PM [employer]) [facility] Glucose WB/POC 171(H) 70 - 99 mg/dL 05/20/2024 8:[address] [facility] Specimen Type Arterial 05/20/2024 8:[address] [facility] Blood BLOOD SPECIMEN / Unknown 05/15/2024 8:43 PM [employer] 05/20/2024 8:25 AM [employer] Zana Tolentino MD LAB - POINT OF CARE ORDERABLES [facility] [address] [place], [place] [phone] * (ABNORMAL) GLUCOSE - POINT OF CARE (05/15/2024 6:01 PM MONUMENT SETTER HELPER) Pathologist [facility] Glucose WB/POC 179(H) 70 - 99 mg/dL 05/15/2024 8:26 PM MONUMENT SETTER HELPER [facility] Specimen Type Cap Fingerstick 2023 8:26 PM MONUMENT SETTER HELPER [facility] Blood BLOOD SPECIMEN / Unknown 05/15/2024 6:01 PM MONUMENT SETTER HELPER 05/15/2024 8:26 PM MONUMENT SETTER HELPER Zana Tolentino MD LAB - POINT OF CARE ORDERABLES Performing Organization Address City/[facility] Co de Phone Number [facility] [address] [place] [phone] * XR Foot Left 2Vw (05/15/2024 5:31 PM MONUMENT SETTER HELPER) Anatomical Region Laterality Modality Ankle / Foot Radiographic Haylee ging 05/16/2024 7:16 AM MONUMENT SETTER HELPER Impressions 05/16/2024 9:15 AM MONUMENT SETTER HELPER IMPRESSION: Ulceration versus surgical debridement of the posterior plantar soft tissue of the foot and calcaneus. Report drafted by Ketan Meier MD (residential roofer) I, Gila Licea MD have personally reviewed and interpreted this examination/study. > Interpreting Provider: Gila Licea MD on 05/16/2024 9:15 AM Narrative 05/16/2024 9:15 AM MONUMENT SETTER HELPER EXAMINATION: XR FOOT LEFT 2VW HISTORY: L08.9: [...] calcaneus. Report drafted by Ketan Meier MD (residential roofer) I, Gila Licea MD have personally reviewed and interpreted this examination/study. > Interpreting Provider: Gila Licea MD on 05/16/2024 9:15 AM Abby Quinn DPM DIAGNOSTIC IMAGING O RDERABLES * (ABNORMAL) GLUCOSE - POINT OF CARE (05/15/2024 5:06 PM MONUMENT SETTER HELPER) Pathologist [facility] Glucose WB/POC 191(H) 70 - 99 mg/dL 05/16/2024 7:35 AM MONUMENT SETTER HELPER [facility] Specimen Type Cap Fingerstick 2023 7:35 AM MONUMENT SETTER HELPER [facility] Blood BLOOD SPECIMEN / Unknown 05/15/2024 5:06 PM MONUMENT SETTER HELPER 05/16/2024 7:35 AM MONUMENT SETTER HELPER aZna Tolentino MD LAB - POINT OF CARE ORDERABLES [facility] [address] [place] [address] * (ABNORMAL) CULTURE TISSUE+GRAM STAIN (05/15/2024 4:34 PM MONUMENT SETTER HELPER) Pathologist [facility] Culture Rare Streptococcus agalactiae (Group B)(AA) 05/18/2024 11:57 PM MONUMENT SETTER HELPER [facility] Gram Stain Rare Polymorphonuclear cells 05/18/2024 11:57 PM MONUMENT SETTER HELPER [facility] Gram Stain No organisms seen 024 11:57 PM MONUMENT SETTER HELPER [facility] Microbiology ENTIRE FOOT / Unknown 05/15/2024 4:34 PM MONUMENT SETTER HELPER 05/15/2024 8:29 PM MONUMENT SETTER HELPER Narrative [facility] - 05/18/2024 11:57 PM MONUMENT SETTER HELPER Susceptibility testing of penicillin, other beta-lactam antibiotics, and vancomycin is not necessary for beta-hemolytic streptococci groups A,B,C and G because resistant strains have not been recognized. Surgical Description: Left Foot Abby Quinn [facility] - MICROBIOLOGY O EMILY Performing Organization Address City/[facility] Co de Phone Number [facility] [address] [place] [address], [facility] [phone] * (ABNORMAL) CULTURE ANAEROBE (05/15/2024 4:34 PM MONUMENT SETTER HELPER) Culture Rare Prevotella bergensis(A) JEFF 05/20/2024 9:23 AM [facility] Comment:Beta-lactamase posit micah Culture Light Parvimonas micra(A) 05/20/2024 9:23 AM [facility] Microbiology ENTIRE FOOT / Unknown 05/15/2024 4:34 PM MONUMENT SETTER HELPER 05/15/2024 8:29 PM MONUMENT SETTER HELPER Narrative [facility] - 05/20/2024 9:23 AM MONUMENT SETTER HELPER Surgical Description: Left Foot Abby DUONG LAB - MICROBIOLOGY O EMILY Performing Organization Address City/[facility]/ZIP Co de Phone Number [facility] [address] [place] [address], [facility] [phone] * (ABNORMAL) CULTURE TISSUE+GRAM STAIN (05/15/2024 4:33 PM MONUMENT SETTER HELPER) Culture Heavy Morganella morganii(AA) JEFF 05/19/2024 6:31 AM MONUMENT SETTER HELPER [facility] Culture Heavy Streptococcus agalactiae (Group B)(AA) 05/19/2024 6:31 AM [facility] Culture Rare Proteus vulgaris(AA) JEFF 05/19/2024 6:31 AM [facility] Gram Stain Heavy Polymorphonuclear cells(AA) 05/19/2024 6:31 AM [facility] Gram Stain Heavy Gram-positive cocci(AA) 05/19/2024 6:31 AM [facility] Gram Stain Heavy Gram-variable bacilli(AA) 05/19/2024 6:31 AM [facility] Microbiology ENTIRE FOOT / Unknown 05/15/2024 4:33 PM MONUMENT SETTER HELPER 05/15/2024 8:29 PM [facility] Narrative [facility] - 05/19/2024 6:31 AM [facility] Susceptibility testing of penicillin, other beta-lactam antibiotics, and vancomycin is not necessary for beta-hemolytic streptococci groups A,B,C and G because resistant strains have not been recognized. Surgical Description: Calcaneus Bone Left Foot Organism Antibiotic Method Susceptibility Morganella morganii Amikacin JEFF <=2 ug/mL: Susceptible Morganella morganii Cefepime JEFF <=1 ug/mL: Susceptible Morganella morganii Ceftriaxone JEFF <=1 ug/mL: Susceptible Morganella morganii Ciprofloxacin JEFF <=0.25 ug/mL: Susceptible Morganella morganii Gentamicin JEFF <=1 ug/mL: Susceptible Morganella morganii Meropenem JEFF <=0.25 ug/mL: Susceptible Morganella morganii Piperacillin-tazobactam JEFF <=4 ug/mL: Susceptible Morganella morganii Tobramycin JEFF <=1 ug/mL: Susceptible Morganella morganii Trimethoprim-sulfamethoxazole JEFF <=20 ug/mL: Susceptible Proteus vulgaris Amikacin JEFF <=2 ug/mL: Susceptible Proteus vulgaris Ampicillin-sulbactam JEFF 8 ug/mL: Susceptible Proteus vulgaris Cefepime JEFF <=1 ug/mL: Susceptible Proteus vulgaris Ceftriaxone JEFF <=1 ug/mL: Susceptible Proteus vulgaris Ciprofloxacin JEFF <=0.25 ug/mL: Susceptible Proteus vulgaris Gentamicin JEFF <=1 ug/mL: Susceptible Proteus vulgaris Piperacillin-tazobactam JEFF <=4 ug/mL: Susceptible Proteus vulgaris Tobramycin JEFF <=1 ug/mL: Susceptible Proteus vulgaris Trimethoprim-sulfamethoxazole JEFF <=20 ug/mL: Susceptible Abby Quinn DPM LAB - MICROBIOLOGY O RDLONNY Performing Organization Address [facility] de Phone Number [facility] [address] [place] [address], [facility] [phone] * (ABNORMAL) CULTURE ANAEROBE (05/15/2024 4:33 PM MONUMENT SETTER HELPER) Culture Heavy Parvimonas micra(A) JEFF 05/20/2024 9:23 AM MONUMENT SETTER HELPER [facility] Culture Heavy Prevotella bergensis(A) 05/20/2024 9:23 AM MONUMENT SETTER HELPER [facility] Comment:Beta-lactamase posit micah Microbiology ENTIRE FOOT / Unknown 05/15/2024 4:33 PM MONUMENT SETTER HELPER 05/15/2024 8:29 PM MONUMENT SETTER HELPER Narrative [facility] - 05/20/2024 9:23 AM MONUMENT SETTER HELPER Surgical Description: Calcaneus Bone Left Foot Abby Quinn DPM LAB - MICROBIOLOGY O EMILY Performing Organization Address [facility] de Phone Number [facility] [address] [place] [address], [facility] [phone] * PATHOLOGY TISSUE EXAM (STL) (05/15/2024 4:29 PM MONUMENT SETTER HELPER) Case Report Surgical Pathology Report ? Case: [id number] ? Authorizing Provider: ??Abby Quinn DPM ? Collected: ? 05/15/2024 04:29 PM ? Ordering Location: ? [facility] ?Received: ?05/16/2024 08:13 AM ? Pathologist: ? Kaci Mayo MD ? Specimen: ?Bone Debridement, Calcaneus Bone Left Foot ? 05/18/2024 10:[address] [facility] Final Diagnosis Bone, left calcaneus, debridement - Focal acute osteomyelitis 05/18/2024 10:[address] [facility] Clinical History The patient is a 43-year-old man with left foot infection. Operative procedure: irrigation/debridemen t of foot/ankle. 05/18/2024 10:[address] [facility] Gross Description The requisition [...] decalcification. MB 05/18/2024 10:[address] [facility] Microscopic Description Microscopic examination substantiates the above diagnosis. 05/18/2024 10:[address] [facility] Pathologist Location at [facility] 05/18/2024 10:[address] [facility] Disclaimer All histochemical and/or [...] be interpreted with caution. 05/18/2024 10:44 AM MONUMENT SETTER HELPER [facility] Embedded Images 05/18/2024 10:44 AM MONUMENT SETTER HELPER [facility] Pathology/Cytolo gy DEBRIDEMENT OF BONE / Unknown 05/15/2024 4:29 PM MONUMENT SETTER HELPER 05/16/2024 8:13 AM MONUMENT SETTER HELPER Abby Quinn DPM LAB - PATHOLOGY/CYTO LOGY ORDERABLES Performing Organization Address [facility] Co de Phone Number [facility] [address] [place] [address] [phone] * (ABNORMAL) GLUCOSE - POINT OF CARE (05/15/2024 1:31 PM MONUMENT SETTER HELPER) Glucose WB/POC 177(H) 70 - 99 mg/dL 05/27/2024 7:26 PM MONUMENT SETTER HELPER [facility] Specimen Type Cap Fingerstick 2023 7:26 PM MONUMENT SETTER HELPER [facility] Blood BLOOD SPECIMEN / Unknown 05/15/2024 1:31 PM MONUMENT SETTER HELPER 05/27/2024 7:26 PM MONUMENT SETTER HELPER Zana Tolentino MD LAB - POINT OF CARE ORDERABLES Performing Organization Address [facility] Co de Phone Number [facility] [address] [place] [phone] * (ABNORMAL) GLUCOSE - POINT OF CARE (05/15/2024 7:50 AM MONUMENT SETTER HELPER) Glucose WB/POC 239(H) 70 - 99 mg/dL 05/15/2024 8:11 AM MONUMENT SETTER HELPER [facility] Specimen Type Cap Fingerstick 2023 8:11 AM MONUMENT SETTER HELPER [facility] Blood BLOOD SPECIMEN / Unknown 05/15/2024 7:50 AM MONUMENT SETTER HELPER 05/15/2024 8:11 AM MONUMENT SETTER HELPER Zana Tolentino MD LAB - POINT OF CARE ORDERABLES [facility] [address] [place] [address] * (ABNORMAL) DIFFERENTIAL MANUAL (05/15/2024 12:13 AM [facility]) Neutrophil % 82(H) 41 - 74 % 05/15/2024 1:28 AM MONUMENT SETTER HELPER [facility] Lymphocyte % 9(L) 17 - 47 % 05/15/2024 1:[address] [facility] Monocyte % 6 3 - 11 % 05/15/2024 1:[address] [facility] Eosinophil % 2 0 - 7 % 05/15/2024 1:[address] [facility] Metamyelocyte % 1(H) 0% % 1:[address] [facility] Neutrophil Absolute 20.58(H) 1.60 - 7.50 x10E9/L 05/15/2024 1:[address] [facility] Lymphocyte Absolute 2.26 1.00 - 4.40 x10E9/L 05/15/2024 1:[address] [facility] Monocyte Absolute 1.51(H) 0.15 - 1.00 x10E9/L 05/15/2024 1:[address] [facility] Eosinophil Absolute 0.50 0.00 - 0.60 x10E9/L 05/15/2024 1:[address] [facility] RBC Morphology REVIEWED 05/15/2024 1:[address] [facility] Microcytosis MODERATE(A) (none) 05/15/2024 1:[address] [facility] Blood BLOOD SPECIMEN / Unknown Lab Venipuncture / Unknown 05/15/2024 12:13 AM MONUMENT SETTER HELPER 05/15/2024 12:23 AM [facility] Nicanor Richter MD LAB - HEMATOLOGY ORDERABLES [facility] [address] [place] [address] * VANCOMYCIN LEVEL TROUGH (05/15/2024 12:13 AM MONUMENT SETTER HELPER) Vancomycin Trough 18.2 10.0 - 20.0 ug/mL 05/15/2024 12:52 AM MONUMENT SETTER HELPER [facility] Blood BLOOD SPECIMEN / Unknown Lab Venipuncture / Unknown 05/15/2024 12:13 AM MONUMENT SETTER HELPER 05/15/2024 12:23 AM MONUMENT SETTER HELPER Hattie Liao MD LAB - CHEMISTRY MELIDA COLLINS [facility] Organization Address City/State/[facility] Co de Phone Number [facility] [address] [place] [address] * (ABNORMAL) HEMOGLOBIN A1C (05/15/2024 12:13 AM MONUMENT SETTER HELPER) Hemoglobin A1c 6.6(H) <5.7 % 05/15/2024 12:[address] [facility] Estimated Average Glucose 143 mg/dL 05/15/2024 12:[address] [facility] Blood BLOOD SPECIMEN / Unknown Lab Venipuncture / Unknown 05/15/2024 12:13 AM MONUMENT SETTER HELPER 05/15/2024 12:23 AM MONUMENT SETTER HELPER Narrative [facility] - 05/15/2024 12:56 AM MONUMENT SETTER HELPER HbA1c Interpretation: Normal: < 5.7% Pre-diabetes: 5.7-6.4% [...] exceeds 5% in the specimen. The [employer] assay for the measurement of HbA1c is a National Glycohemoglobin Standardization Program (NGSP) certified method. Zana Tolentino MD LAB - CHEMISTRY BRYSONE DENNIS Performing Organization Address City/[facility]/ZIP Co de Phone Number [facility] [address] [place] [address] * (ABNORMAL) RENAL FUNCTION PANEL (05/15/2024 12:13 AM MONUMENT SETTER HELPER) Glucose 235(H) 70 - 99 mg/dL 05/15/2024 12:[address] [facility] Sodium 132(L) 136 - 145 mmol/L 05/15/2024 12:[address] [facility] Potassium 4.1 3.5 - 5.1 mmol/L 05/15/2024 12:[address] [facility] Chloride 103 98 - 107 mmol/L 05/15/2024 12:[address] [facility] CO2 22 22 - 29 mmol/L 05/15/2024 12:[address] [facility] Calcium 8.2(L) 8.4 - 10.4 mg/dL 05/15/2024 12:[address] [facility] Anion Gap 7 6 - 16 mmol/L 05/15/2024 12:[address] [facility] BUN 31(H) 5.3 - 18.7 mg/dL 05/15/2024 12:[address] [facility] Creatinine 1.69(H) 0.72 - 1.25 mg/dL 05/15/2024 12:[address] [facility] Albumin 1.6(L) 3.4 - 5.0 gm/dL 05/15/2024 12:[address] [facility] Phosphorus 3.3 2.5 - 4.5 mg/dL 05/15/2024 12:[address] [facility] eGFR by CKD-EPI 51(L) >=90 mL/min/1.7 3 m2 05/15/2024 12:[address] [facility] Blood BLOOD SPECIMEN / Unknown Lab Venipuncture / Unknown 05/15/2024 12:13 AM MONUMENT SETTER HELPER 05/15/2024 12:23 AM [facility] Nicanor Richter MD LAB - CHEMISTRY ORDERABLES Performing Organization Address City/[facility]/ZIP Co de Phone Number [facility] [address], [place] [phone] * (ABNORMAL) CBC W AUTO DIFFERENTIAL (05/15/2024 12:13 AM MONUMENT SETTER HELPER) [facility] WBC 25.1(H) 4.0 - 10.7 x10E9/L 05/15/2024 1:[address] [facility] RBC Count 2.76(L) 4.30 - 5.80 x10E12/L 05/15/2024 1:[address] [facility] Hemoglobin 7.7(L) 13.3 - 17.5 g/dL 05/15/2024 1:[address] [facility] Hematocrit 24.6(L) 38.7 - 51.1 % 05/15/2024 1:[address] [facility] MCV 89.1 80.0 - 98.0 fL 05/15/2024 1:[address] [facility] MCH 27.9 26.7 - 33.6 pg 05/15/2024 1:[address] [facility] MCHC 31.3(L) 31.7 - 36.3 g/dL 05/15/2024 1:[address] [facility] RDW-CV 13.8 11.3 - 14.8 % 05/15/2024 1:[address] [facility] Platelet Count 334 150 - 420 x10E9/L 05/15/2024 1:[address] [facility] MPV 8.7 7.8 - 11.4 fL 05/15/2024 1:[address] [facility] Blood BLOOD SPECIMEN / Unknown Lab Venipuncture / Unknown 05/15/2024 12:13 AM MONUMENT SETTER HELPER 05/15/2024 12:23 AM [facility] Nicanor Richter MD LAB - HEMATOLOGY ORDERABLES [facility] [address] [place] [address] [phone] * (ABNORMAL) GLUCOSE - POINT OF CARE (05/14/2024 10:02 PM MONUMENT SETTER HELPER) [facility] Glucose WB/POC 234(H) 70 - 99 mg/dL 05/14/2024 10:11 PM MONUMENT SETTER HELPER [facility] Specimen Type Arterial 05/14/2024 10:11 PM MONUMENT SETTER HELPER [facility] Blood BLOOD SPECIMEN / Unknown 05/14/2024 10:02 PM MONUMENT SETTER HELPER 05/14/2024 10:11 PM MONUMENT SETTER HELPER Zana Tolentino MD LAB - POINT OF CARE ORDERABLES Performing Organization Address [facility]/ZIP Co de Phone Number [facility] [address] [place] [phone] * (ABNORMAL) PROTEIN CREATININE RATIO URINE RANDOM PNL (05/14/2024 5:31 PM MONUMENT SETTER HELPER) Protein Urine 183.8(H) <11.9 mg/dL 05/14/2024 5:52 PM MONUMENT SETTER HELPER [facility] Creatinine Urine 181.54 mg/dL 05/14/2024 5:52 PM MONUMENT SETTER HELPER [facility] Protein/Creatin ine Ratio Urine 1.01 05/14/2024 5:52 PM MONUMENT SETTER HELPER [facility] Urine URINE SPECIMEN OBTAINED BY CLEAN CATCH PROCEDURE / Unknown Collection / Unknown 05/14/2024 5:31 PM MONUMENT SETTER HELPER 05/14/2024 5:36 PM MONUMENT SETTER HELPER Zana Tolentino MD LAB - URINE CHEMISTR Y ORDERABLES Performing Organization Address [facility] Co de Phone Number [facility] [address] [place] [phone] * SODIUM URINE RANDOM (05/14/2024 5:31 PM MONUMENT SETTER HELPER) Sodium Urine <20 mmol/L 05/14/2024 5:54 PM MONUMENT SETTER HELPER [facility] Urine URINE SPECIMEN OBTAINED BY CLEAN CATCH PROCEDURE / Unknown Collection / Unknown 05/14/2024 5:31 PM MONUMENT SETTER HELPER 05/14/2024 5:36 PM MONUMENT SETTER HELPER Zana Tolentino MD LAB - URINE CHEMISTR Y ORDERABLES Performing Organization Address City/[facility]/ZIP Co de Phone Number [facility] [address] [place] [phone] * VANCOMYCIN LEVEL PEAK (05/14/2024 5:06 PM MONUMENT SETTER HELPER) Vancomycin Peak 25.0 25.0 - 40.0 ug/mL 05/14/2024 5:51 PM MONUMENT SETTER HELPER [facility] Blood BLOOD SPECIMEN / Unknown Lab Venipuncture / Unknown 05/14/2024 5:06 PM MONUMENT SETTER HELPER 05/14/2024 5:35 PM MONUMENT SETTER HELPER Hattie Liao MD LAB - CHEMISTRY MELIDA COLLINS Performing Organization Address City/[facility] Co de Phone Number [facility] [address] [place] [phone] * (ABNORMAL) GLUCOSE - POINT OF CARE (05/14/2024 4:50 PM MONUMENT SETTER HELPER) Pathologist [facility] Glucose WB/POC 234(H) 70 - 99 mg/dL 05/27/2024 7:26 PM MONUMENT SETTER HELPER [facility] Specimen Type Arterial 05/27/2024 7:26 PM MONUMENT SETTER HELPER [facility] Blood BLOOD SPECIMEN / Unknown 05/14/2024 4:50 PM MONUMENT SETTER HELPER 05/27/2024 7:26 PM MONUMENT SETTER HELPER Zana Tolentino MD LAB - POINT OF CARE ORDERABLES Performing Organization Address [facility] Co de Phone Number [facility] [address] [place] [phone] * US Retroperitoneal Complete (05/14/2024 2:17 PM MONUMENT SETTER HELPER) Anatomical Region Laterality Modality Abdomen Ultrasound 05/14/2024 4:34 PM MONUMENT SETTER HELPER Impressions 05/14/2024 4:35 PM MONUMENT SETTER HELPER IMPRESSION: 1.Within normal limits. There is no evidence of hydronephrosis or medical renal disease. 2.The ureteral jets were not identified bilaterally during this study. > Interpreting Provider: Chintan Davey MD on 05/14/2024 4:35 PM Narrative 05/14/2024 4:35 PM MONUMENT SETTER HELPER PROCEDURE: ??US RETROPERITONEAL COMPLETE DATE/TIME OF EXAM: [...] * EOSINOPHIL URINE SMEAR (05/14/2024 1:19 PM MONUMENT SETTER HELPER) Eosinophils Urine NONE SEEN NONE SEEN 05/14/2024 2:59 PM MONUMENT SETTER HELPER [facility] Urine URINE SPECIMEN OBTAINED BY CLEAN CATCH PROCEDURE / Unknown Collection / Unknown 05/14/2024 1:19 PM MONUMENT SETTER HELPER 05/14/2024 1:32 PM MONUMENT SETTER HELPER Zana Tolentino MD LAB - URINE CHEMISTR Y ORDERABLES [facility] [address] [place] [address] * (ABNORMAL) CULTURE WOUND+GRAM STAIN (05/14/2024 12:22 PM MONUMENT SETTER HELPER) Culture Heavy Morganella morganii(A) JEFF 05/16/2024 6:46 PM MONUMENT SETTER HELPER [facility] Culture Heavy Streptococcus agalactiae (Group B)(A) 05/16/2024 6:46 PM MONUMENT SETTER HELPER [facility] Culture Heavy normal skin jero 05/16/2024 6:46 PM MONUMENT SETTER HELPER [facility] Gram Stain Rare Polymorphonuclear cells 05/16/2024 6:46 PM MONUMENT SETTER HELPER [facility] Gram Stain Heavy Gram-positive cocci 05/16/2024 6:46 PM MONUMENT SETTER HELPER [facility] Gram Stain Light Gram-positive bacilli 05/16/2024 6:46 PM MONUMENT SETTER HELPER [facility] Gram Stain Moderate Gram-negative bacilli 05/16/2024 6:46 PM MONUMENT SETTER HELPER [facility] Microbiology SPECIMEN FROM WOUND / Unknown Collection / Unknown 05/14/2024 12:22 PM MONUMENT SETTER HELPER 05/14/2024 12:31 PM MONUMENT SETTER HELPER Narrative [facility] - 05/16/2024 6:46 PM MONUMENT SETTER HELPER Susceptibility testing of penicillin, other beta-lactam antibiotics, and vancomycin is not necessary for beta-hemolytic streptococci groups A,B,C and G because resistant strains have not been recognized. Organism Antibiotic Method Susceptibility Morganella morganii Amikacin JEFF <=2 ug/mL: Susceptible Morganella morganii Cefepime JEFF <=1 ug/mL: Susceptible Morganella morganii Ceftriaxone JEFF <=1 ug/mL: Susceptible Morganella morganii Ciprofloxacin JEFF <=0.25 ug/mL: Susceptible Morganella morganii Gentamicin JEFF <=1 ug/mL: Susceptible Morganella morganii Meropenem JEFF <=0.25 ug/mL: Susceptible Morganella morganii Piperacillin-tazobactam JEFF <=4 ug/mL: Susceptible Morganella morganii Tobramycin JEFF <=1 ug/mL: Susceptible Morganella morganii Trimethoprim-sulfamethoxazole JEFF <=20 ug/mL: Susceptible Zana Tolentino MD LAB - MICROBIOLOGY O RDLONNY Performing Organization Address City/[facility] Co de Phone Number [facility] [address] [facility] [place], [address] [phone] * (ABNORMAL) GLUCOSE - POINT OF CARE (05/14/2024 11:33 AM MONUMENT SETTER HELPER) Glucose WB/POC 253(H) 70 - 99 mg/dL 05/27/2024 7:26 PM MONUMENT SETTER HELPER [facility] Specimen Type Arterial 05/27/2024 7:26 PM MONUMENT SETTER HELPER [facility] Blood BLOOD SPECIMEN / Unknown 05/14/2024 11:33 AM MONUMENT SETTER HELPER 05/27/2024 7:26 PM MONUMENT SETTER HELPER Zana Tolentino MD LAB - POINT OF CARE ORDERABLES Performing Organization Address City/[facility] Co de Phone Number [facility] [address] [place] [address] * CULTURE BLOOD (05/14/2024 9:25 AM MONUMENT SETTER HELPER) Culture No growth day 5 JEFF 05/19/2024 1:31 PM MONUMENT SETTER HELPER [facility] Blood PERIPHERAL BLOOD / Unknown Lab Venipuncture / Unknown 05/14/2024 9:25 AM MONUMENT SETTER HELPER 05/14/2024 9:30 AM MONUMENT SETTER HELPER Zana Tolentino MD LAB - MICROBIOLOGY O RDLONNY [facility] [address] [place] [address], [facility] [phone] * CULTURE BLOOD (05/14/2024 9:16 AM MONUMENT SETTER HELPER) Pathologist [facility] Culture No growth day 5 JEFF 05/19/2024 1:31 PM MONUMENT SETTER HELPER [facility] Blood PERIPHERAL BLOOD / Unknown Lab Venipuncture / Unknown 05/14/2024 9:16 AM MONUMENT SETTER HELPER 05/14/2024 9:30 AM MONUMENT SETTER HELPER Zana Tolentino MD LAB - MICROBIOLOGY O RDERABLES Performing Organization Address City/[facility] Co de Phone Number [facility] [address] [place] [address], [facility] [phone] * FOLATE (05/14/2024 9:16 AM MONUMENT SETTER HELPER) Pathologist [facility] Folate 8.5 7.0 - 31.4 ng/mL 05/14/2024 10:27 AM MONUMENT SETTER HELPER [facility] Blood BLOOD SPECIMEN / Unknown Lab Venipuncture / Unknown 05/14/2024 9:16 AM MONUMENT SETTER HELPER 05/14/2024 9:30 AM MONUMENT SETTER HELPER Zana Tolentino MD LAB - CHEMISTRY MELIDA COLLINS Performing Organization Address [facility] Co de Phone Number [facility] [address] [place] [phone] * (ABNORMAL) VITAMIN B12 (05/14/2024 9:16 AM MONUMENT SETTER HELPER) Vitamin B12 >2,000(H) 213 - 816 pg/mL 05/14/2024 10:27 AM MONUMENT SETTER HELPER [facility] Blood BLOOD SPECIMEN / Unknown Lab Venipuncture / Unknown 05/14/2024 9:16 AM MONUMENT SETTER HELPER 05/14/2024 9:30 AM MONUMENT SETTER HELPER Zana Tolentino MD LAB - CHEMISTRY MELIDA COLLINS Performing Organization Address City/[facility]/ZIP Co de Phone Number [facility] [address] [place] [phone] * LACTIC ACID BLOOD (05/14/2024 9:16 AM MONUMENT SETTER HELPER) [facility] Lactic Acid 1.0 <=2.0 mmol/L 05/14/2024 9:54 AM MONUMENT SETTER HELPER [facility] Blood BLOOD SPECIMEN / Unknown Lab Venipuncture / Unknown 05/14/2024 9:16 AM MONUMENT SETTER HELPER 05/14/2024 9:30 AM MONUMENT SETTER HELPER Zana Tolentino MD LAB - CHEMISTRY MELIDA COLLINS Performing Organization Address [facility] Co de Phone Number [facility] [address] [place] [address] * (ABNORMAL) B-TYPE NATRIURETIC PEPTIDE (05/14/2024 9:16 AM MONUMENT SETTER HELPER) [facility] BNP 140(H) <=100 pg/mL 05/14/2024 10:10 AM MONUMENT SETTER HELPER [facility] Blood BLOOD SPECIMEN / Unknown Lab Venipuncture / Unknown 05/14/2024 9:16 AM MONUMENT SETTER HELPER 05/14/2024 9:30 AM MONUMENT SETTER HELPER Narrative [facility] - 05/14/2024 10:10 AM MONUMENT SETTER HELPER A cutoff of 100 pg/mL has been [...] - CHEMISTRY MELIDA COLLINS Performing Organization Address City/[facility]/ZIP Co de Phone Number [facility] [address] [place] [address] * (ABNORMAL) GLUCOSE - POINT OF CARE (05/14/2024 8:16 AM MONUMENT SETTER HELPER) Glucose WB/POC 210(H) 70 - 99 mg/dL 05/27/2024 7:26 PM MONUMENT SETTER HELPER [facility] Specimen Type Arterial 05/27/2024 7:26 PM MONUMENT SETTER HELPER [facility] Blood BLOOD SPECIMEN / Unknown 05/14/2024 8:16 AM MONUMENT SETTER HELPER 05/27/2024 7:26 PM MONUMENT SETTER HELPER Zana Tolentino MD LAB - POINT OF CARE ORDERABLES Performing Organization Address [facility]/ZIP Co de Phone Number [facility] [address] [place] [phone] * VANCOMYCIN LEVEL RANDOM (05/14/2024 4:03 AM MONUMENT SETTER HELPER) Pathologist [facility] Vancomycin Random 14.5 <=40.0 ug/mL 05/14/2024 9:34 AM MONUMENT SETTER HELPER [facility] Blood BLOOD SPECIMEN / Unknown Lab Venipuncture / Unknown 05/14/2024 4:03 AM MONUMENT SETTER HELPER 05/14/2024 4:13 AM MONUMENT SETTER HELPER Narrative [facility] - 05/14/2024 9:34 AM MONUMENT SETTER HELPER No reference range available for random Vancomycin levels. All results interpreted by ordering physician. Zana Tolentino MD LAB - CHEMISTRY MELIDA COLLINS Performing Organization Address [facility] Co de Phone Number [facility] [address] [place] [phone] * CK BLOOD (05/14/2024 4:03 AM MONUMENT SETTER HELPER) CK 136 30 - 200 U/L 05/14/2024 9:34 AM MONUMENT SETTER HELPER [facility] Blood BLOOD SPECIMEN / Unknown Lab Venipuncture / Unknown 05/14/2024 4:03 AM MONUMENT SETTER HELPER 05/14/2024 4:13 AM MONUMENT SETTER HELPER Zana Tolentino MD LAB - CHEMISTRY MELIDA COLLINS Performing Organization Address [facility] Co de Phone Number [facility] [address] [place] [phone] * (ABNORMAL) RETIC COUNT (05/14/2024 4:03 AM MONUMENT SETTER HELPER) [facility] Reticulocyte Percent 1.38 0.50 - 2.40 % 05/14/2024 9:[address] [facility] Reticulocyte Absolute 0.0384 0.0200 - 0.1100 x10E6/uL 05/14/2024 9:[address] [facility] Ret-HE 23.6(L) 29.0 - 37.9 pg 05/14/2024 9:[address] [facility] Immature Reticulocyte Fraction 18.2(H) 1.8 - 15.2 % 05/14/2024 9:[address] [facility] Blood BLOOD SPECIMEN / Unknown Lab Venipuncture / Unknown 05/14/2024 4:03 AM MONUMENT SETTER HELPER 05/14/2024 4:13 AM MONUMENT SETTER HELPER Zana Tolentino MD LAB - HEMATOLOGY ORD ERABLES Performing Organization Address City/[facility]/ZIP Co de Phone Number [facility] [address] [place] [phone] * (ABNORMAL) FERRITIN (05/14/2024 4:03 AM MONUMENT SETTER HELPER) [facility] Ferritin 1,357(H) 22 - 275 ng/mL 05/14/2024 10:[address] [facility] Blood BLOOD SPECIMEN / Unknown Lab Venipuncture / Unknown 05/14/2024 4:03 AM MONUMENT SETTER HELPER 05/14/2024 4:13 AM MONUMENT SETTER HELPER Zana Tolentino MD LAB - CHEMISTRY ORDSami COLLINS [facility] [address] [place] [phone] * (ABNORMAL) IRON + TRANSFERRIN PANEL (05/14/2024 4:03 AM MONUMENT SETTER HELPER) [facility] Iron 11(L) 50 - 175 ug/dL 05/14/2024 9:[address] [facility] Transferrin 100(L) 174 - 382 mg/dL 05/14/2024 9:[address] [facility] TIBC Calculated 125(L) 240 - 450 ug/dL 05/14/2024 9:[address] [facility] Iron Saturation % 9(L) 20 - 50 % 05/14/2024 9:[address] [facility] Blood BLOOD SPECIMEN / Unknown Lab Venipuncture / Unknown 05/14/2024 4:03 AM MONUMENT SETTER HELPER 05/14/2024 4:13 AM MONUMENT SETTER HELPER Zana Tolentino MD LAB - CHEMISTRY MELIDA COLLINS Performing Organization Address [facility]/ZIP Co de Phone Number [facility] [address] [place] [phone] * (ABNORMAL) DIFFERENTIAL MANUAL (05/14/2024 4:03 AM MONUMENT SETTER HELPER) Neutrophil % 89(H) 41 - 74 % 05/14/2024 4:[address] [facility] Lymphocyte % 8(L) 17 - 47 % 05/14/2024 4:[address] [facility] Monocyte % 3 3 - 11 % 05/14/2024 4:[address] [facility] Neutrophil Absolute 19.40(H) 1.60 - 7.50 x10E9/L 05/14/2024 4:[address] [facility] Lymphocyte Absolute 1.74 1.00 - 4.40 x10E9/L 05/14/2024 4:[address] [facility] Monocyte Absolute 0.65 0.15 - 1.00 x10E9/L 05/14/2024 4:[address] [facility] RBC Morphology REVIEWED 05/14/2024 4:[address] [facility] Margaret Cells MODERATE(A) (none) 05/14/2024 4:[address] [facility] Blood BLOOD SPECIMEN / Unknown Lab Venipuncture / Unknown 05/14/2024 4:03 AM MONUMENT SETTER HELPER 05/14/2024 4:13 AM MONUMENT SETTER HELPER Nicanor Richter MD LAB - HEMATOLOGY ORDERABLES Performing Organization Address [facility]/ZIP Co de Phone Number [facility] [address] [place] [phone] * (ABNORMAL) RENAL FUNCTION PANEL (05/14/2024 4:03 AM MONUMENT SETTER HELPER) Glucose 185(H) 70 - 99 mg/dL 05/14/2024 4:[address] [facility] Sodium 133(L) 136 - 145 mmol/L 05/14/2024 4:[address] [facility] Potassium 4.1 3.5 - 5.1 mmol/L 05/14/2024 4:[address] [facility] Chloride 106 98 - 107 mmol/L 05/14/2024 4:[address] [facility] CO2 20(L) 22 - 29 mmol/L 05/14/2024 4:[address] [facility] Calcium 8.2(L) 8.4 - 10.4 mg/dL 05/14/2024 4:[address] [facility] Anion Gap 7 6 - 16 mmol/L 05/14/2024 4:[address] [facility] BUN 28(H) 5.3 - 18.7 mg/dL 05/14/2024 4:[address] [facility] Creatinine 1.38(H) 0.72 - 1.25 mg/dL 05/14/2024 4:[address] [facility] Albumin 1.6(L) 3.4 - 5.0 gm/dL 05/14/2024 4:[address] [facility] Phosphorus 4.1 2.5 - 4.5 mg/dL 05/14/2024 4:[address] [facility] eGFR by CKD-EPI 65(L) >=90 mL/min/1.7 3 m2 05/14/2024 4:[address] [facility] Blood BLOOD SPECIMEN / Unknown Lab Venipuncture / Unknown 05/14/2024 4:03 AM MONUMENT SETTER HELPER 05/14/2024 4:13 AM [facility] Nicanor Richter MD LAB - CHEMISTRY ORDERABLES [facility] [address] [place] [address] * (ABNORMAL) CBC W AUTO DIFFERENTIAL (05/14/2024 4:03 AM [facility]) WBC 21.8(H) 4.0 - 10.7 x10E9/L 05/14/2024 4:[address] [facility] RBC Count 2.75(L) 4.30 - 5.80 x10E12/L 05/14/2024 4:[address] [facility] Hemoglobin 7.7(L) 13.3 - 17.5 g/dL 05/14/2024 4:[address] [facility] Hematocrit 25.1(L) 38.7 - 51.1 % 05/14/2024 4:[address] [facility] MCV 91.3 80.0 - 98.0 fL 05/14/2024 4:[address] [facility] MCH 28.0 26.7 - 33.6 pg 05/14/2024 4:[address] [facility] MCHC 30.7(L) 31.7 - 36.3 g/dL 05/14/2024 4:[address] [facility] RDW-CV 13.6 11.3 - 14.8 % 05/14/2024 4:[address] [facility] Platelet Count 298 150 - 420 x10E9/L 05/14/2024 4:[address] [facility] MPV 8.8 7.8 - 11.4 fL 05/14/2024 4:[address] [facility] Blood BLOOD SPECIMEN / Unknown Lab Venipuncture / Unknown 05/14/2024 4:03 AM MONUMENT SETTER HELPER 05/14/2024 4:13 AM MONUMENT SETTER HELPER Nicanor Richter MD LAB - HEMATOLOGY ORDERABLES Performing Organization Address [facility]/State/[facility] Co de Phone Number [facility] [address] [place] [address] * (ABNORMAL) GLUCOSE - POINT OF CARE (05/13/2024 11:10 PM MONUMENT SETTER HELPER) Glucose WB/POC 222(H) 70 - 99 mg/dL 05/14/2024 7:[address] [facility] Specimen Type Cap Fingerstick 2023 7:[address] [facility] Blood BLOOD SPECIMEN / Unknown 05/13/2024 11:10 PM MONUMENT SETTER HELPER 05/14/2024 7:27 AM MONUMENT SETTER HELPER Nicanor Elliot Richter MD LAB - POINT OF CARE ORDERABLES [facility] [address] [place] [address] * (ABNORMAL) CBC W AUTO DIFFERENTIAL (05/13/2024 6:30 PM MONUMENT SETTER HELPER) WBC 22.3(H) 4.0 - 10.7 x10E9/L 05/13/2024 7:[address] [facility] RBC Count 2.90(L) 4.30 - 5.80 x10E12/L 05/13/2024 7:[address] [facility] Hemoglobin 8.2(L) 13.3 - 17.5 g/dL 05/13/2024 7:[address] [facility] Hematocrit 25.6(L) 38.7 - 51.1 % 05/13/2024 7:[address] [facility] MCV 88.3 80.0 - 98.0 fL 05/13/2024 7:[address] [facility] MCH 28.3 26.7 - 33.6 pg 05/13/2024 7:[address] [facility] MCHC 32.0 31.7 - 36.3 g/dL 05/13/2024 7:[address] [facility] RDW-CV 13.4 11.3 - 14.8 % 05/13/2024 7:[address] [facility] Platelet Count 318 150 - 420 x10E9/L 05/13/2024 7:[address] [facility] MPV 8.9 7.8 - 11.4 fL 05/13/2024 7:[address] [facility] Neutrophil % 80.9(H) 41.0 - 74.0 % 05/13/2024 7:[address] [facility] Lymphocyte % 8.7(L) 17.0 - 47.0 % 05/13/2024 7:[address] [facility] Monocyte % 7.6 3.0 - 11.0 % 05/13/2024 7:[address] [facility] Eosinophil % 0.4 0.0 - 7.0 % 05/13/2024 7:[address] [facility] Basophil % 0.4 0.0 - 1.6 % 05/13/2024 7:[address] [facility] Immature Granulocytes % 2.0(H) 0.0 - 1.0 % 05/13/2024 7:[address] [facility] Neutrophil Absolute 18.03(H) 1.60 - 7.50 x10E9/L 05/13/2024 7:[address] [facility] Lymphocyte Absolute 1.94 1.00 - 4.40 x10E9/L 05/13/2024 7:[address] [facility] Monocyte Absolute 1.70(H) 0.15 - 1.00 x10E9/L 05/13/2024 7:[address] [facility] Eosinophil Absolute 0.10 0.00 - 0.60 x10E9/L 05/13/2024 7:[address] [facility] Basophil Absolute 0.08 0.00 - 0.13 x10E9/L 05/13/2024 7:[address] [facility] Blood BLOOD SPECIMEN / Unknown Lab Venipuncture / Unknown 05/13/2024 6:30 PM MONUMENT SETTER HELPER 05/13/2024 6:39 PM MONUMENT SETTER HELPER Nicanor Richter MD LAB - HEMATOLOGY ORDERABLES [facility] [address] [place] [phone] * (ABNORMAL) BASIC METABOLIC PANEL (CALCIUM TOTAL) (05/13/2024 6:30 PM MONUMENT SETTER HELPER) Glucose 186(H) 70 - 99 mg/dL 05/13/2024 6:[address] [facility] Sodium 133(L) 136 - 145 mmol/L 05/13/2024 6:[address] [facility] Potassium 3.8 3.5 - 5.1 mmol/L 05/13/2024 6:[address] [facility] Chloride 105 98 - 107 mmol/L 05/13/2024 6:[address] [facility] CO2 19(L) 22 - 29 mmol/L 05/13/2024 6:[address] [facility] Calcium 8.3(L) 8.4 - 10.4 mg/dL 05/13/2024 6:55 PM MONUMENT SETTER HELPER [facility] Anion Gap 9 6 - 16 mmol/L 05/13/2024 6:55 PM MONUMENT SETTER HELPER [facility] BUN 30(H) 5.3 - 18.7 mg/dL 05/13/2024 6:55 PM MONUMENT SETTER HELPER [facility] Creatinine 1.32(H) 0.72 - 1.25 mg/dL 05/13/2024 6:55 PM MONUMENT SETTER HELPER [facility] eGFR by CKD-EPI 68(L) >=90 mL/min/1.7 3 m2 05/13/2024 6:55 PM MONUMENT SETTER HELPER [facility] Blood BLOOD SPECIMEN / Unknown Lab Venipuncture / Unknown 05/13/2024 6:30 PM MONUMENT SETTER HELPER 05/13/2024 6:39 PM MONUMENT SETTER HELPER Nicnaor Richter MD LAB - CHEMISTRY ORDERABLES Performing Organization Address City/State/[facility] Co de Phone Number [facility] [address] [place] [address] documented in this encounter Visit Diagnoses Diagnosis Ulcer of left foot with other severity (HCC)- Primary Ulcer of left foot with other severity (HCC) CHRISTIE (acute kidney injury) (HCC) Acute kidney failure, unspecified Left foot infection Unspecified local infection of skin and subcutaneous tissue Diagnosis unknown Other unknown and unspecified cause of morbidity or mortality Acute osteomyelitis (HCC) Sepsis (HCC) CHRISTIE (acute kidney injury) (HCC) Acute kidney failure, unspecified Hyperkalemia Hyperpotassemia Hyperglycemia Other abnormal glucose Controlled type 2 diabetes mellitus, with long-term current use of insulin (HCC) documented in this encounter Administered Medications Inactive Administered Medications - up to 3 most recent administrations Medication Order MAR Action Action Date Dose Rate Site 0.9% NaCl flush bag at 20 mL/hr, 250 mL, CONTINUOUS PRN, Starting on Thu05/13/24 at 2220, Until Thu05/26/24 at 1405, FLUSH BAG, Use for: IVPB flush $ New Bag/Syringe 05/20/2024 9:21 PM MONUMENT SETTER HELPER 250 mL 20 mL/hr $ New Bag/Syringe 05/19/2024 8:06 PM MONUMENT SETTER HELPER 250 mL 20 mL/ hr $ New Bag/Syringe 05/18/2024 8:09 PM MONUMENT SETTER HELPER 250 mL 20 mL/ hr 0.9% NaCl infusion at 75 mL/hr, Intravenous, CONTINUOUS, Starting on Thu05/13/24 at 2115, Until Thu05/14/24 at 0921 Current Rate 05/14/2024 7:01 AM MONUMENT SETTER HELPER 75 mL/hr Current Rate 05/14/2024 6:29 AM MONUMENT SETTER HELPER 75 mL/hr Current Rate 05/14/2024 3:14 AM MONUMENT SETTER HELPER 75 mL/hr 0.9% NaCl infusion at 75 mL/hr, Intravenous, CONTINUOUS, Starting on Thu05/15/24 at 0930, Until Thu05/18/24 at 0208 $ New Bag/Syringe 05/17/2024 8:57 PM MONUMENT SETTER HELPER 75 mL/hr $ New Bag/Syringe 05/17/2024 5:04 AM MONUMENT SETTER HELPER 75 mL/ hr $ New Bag/Syringe 05/16/2024 8:49 AM MONUMENT SETTER HELPER 75 mL/ hr 0.9% NaCl injection 10-40 mL 10-40 mL, Intracatheter, EVERY 8 HOURS, First dose on Thu05/24/24 at 1400, Until Discontinued, Flush each lumen of PICC with 10ml NS IVP every 8 hours (regardless of continuous IV infusion). Flushing may be contraindicated if concentrated drips are infusing. $ Given 05/26/2024 5:45 AM MONUMENT SETTER HELPER 10 mL $ Given 05/25/2024 8:57 PM MONUMENT SETTER HELPER 10 mL $ Given 05/25/2024 12:46 PM MONUMENT SETTER HELPER 10 mL 0.9% NaCl injection 10-40 mL 10-40 mL, Intracatheter, PRN, Other, PICC line flush, Starting on Thu05/24/24 at 1022, Until Thu05/26/24 at 1405, Flush each lumen of PICC with 10ml NS IVP before and after medication/solution administration for patency and blood return. Flush each lumen of PICC with 20 ml NS IVP after each infusion of blood products or lipids, and after each blood draw. $ Given 05/24/2024 10:41 PM MONUMENT SETTER HELPER 10 mL acetaminophen (Tylenol) tablet 650 mg 650 mg, Oral, EVERY 6 HOURS PRN, Fever, Mild Pain, Moderate Pain, Starting on Thu05/14/24 at 1819, Until Thu05/18/24 at 1114, Patient preference for lesser PRN pain meds may be honored when the patient requests a less strong medication, a lower dose, or a less intrusive route of administration when the lesser drug, dose and route have been ordered for the patient. This patient request must be documented in the MAR. If both oral and IV options are ordered for the same pain severity, give oral first unless patient cannot tolerate oral intake $ Given 05/14/2024 11:38 PM MONUMENT SETTER HELPER 650 mg acetaminophen (Tylenol) tablet 650 mg 650 mg, Oral, EVERY 6 HOURS PRN, Fever, Mild Pain, Starting on Thu05/18/24 at 1114, Until Inna 05/26/24 at 1405, Patient preference for lesser PRN pain meds may be honored when the patient requests a less strong medication, a lower dose, or a less intrusive route of administration when the lesser drug, dose and route have been ordered for the patient. This patient request must be documented in the MAR. If both oral and IV options are ordered for the same pain severity, give oral first unless patient cannot tolerate oral intake $ Given 05/21/2024 8:13 PM MONUMENT SETTER HELPER 650 mg alteplase (Cathflo Activase) injection 2 mg 2 mg, Intravenous, ONCE, 1 dose, On Thu05/24/24 at 1815, If reconstituted by nursing, dilute 2 mg vial with 2.2 mL sterile water for final concentration of 1 mg/mL. 1. Instill the dose into the occluded catheter. 2. After 30 minutes of dwell time, assess catheter function by attempting to aspirate blood. 3. If catheter function has been restored, aspirate 4-5 mL of blood in patients weighing over 10 kg, or 3 mL in patients weighing under 10 kg, to remove Cathflo Activase and residual clot, and gently irrigate the catheter with 0.9% Sodium Chloride, LONGTERM. $ Given 05/24/2024 7:08 PM MONUMENT SETTER HELPER 2 mg ampicillin-sulbactam (Unasyn) 3 g in 0.9% NaCl IV 100 mL IVPB 3 g, at 200 mL/hr, Intravenous, EVERY 6 HOURS, First dose on 05/14/24 at 0000, Until Discontinued, Indication for anti-infective therapy: Documented infection, Site of anti-infective therapy: Bone/Joint $ New Bag/Syringe 05/14/2024 5:59 AM MONUMENT SETTER HELPER 3 g 200 mL/hr $ New Bag/Syringe 05/13/2024 11:16 PM [employer]UMENT SETTER HELPER 3 g 200 m L/hr artificial tears ophthalmic ointment Each Eye, EVERY 8 HOURS, First dose on 05/21/24 at 0000, Until Discontinued, Place a small strip of ointment into the eye. Wait at least 5 minutes before administering other ophthalmic medications. $ Given 05/21/2024 8:10 PM MONUMENT SETTER HELPER atorvastatin (Lipitor) tablet 40 mg 40 mg, Oral, AT BEDTIME, First dose on Thu05/13/24 at 2115, Until Discontinued $ Given 05/25/2024 8:56 PM MONUMENT SETTER HELPER 40 mg $ Given 05/24/2024 8:09 PM MONUMENT SETTER HELPER 40 mg $ Given 05/23/2024 8:06 PM MONUMENT SETTER HELPER 40 mg benzonatate (Tessalon) capsule 100 mg 100 mg, Oral, 3 TIMES DAILY PRN, Cough, Starting on Thu05/17/24 at 1335, Until Inna 05/26/24 at 1405 $ Given 05/25/2024 6:41 PM [employer] HELPER 100 mg $ Given 05/19/2024 12:50 AM [employer]TER HELPER 100 mg $ Given 05/18/2024 9:24 AM [employer] SETTER HELPER 100 mg buPROPion XL 24hr (Wellbutrin-XL) tablet 150 mg 150 mg, Oral, DAILY, First dose on 05/14/24 at 0900, Until Discontinued, Do not crush, chew, or cut in half. $ Given 05/26/2024 8:21 AM [employer]TER HELPER 150 mg $ Given 05/25/2024 8:38 AM [employer]UMENT SETTER HELPER 150 mg $ Given 05/24/2024 8:13 AM [employer] SETTER HELPER 150 mg cefepime (Maxipime) 2,000 mg in 0.9% NaCl IV 50 mL IVPB 2,000 mg (2 g), at 100 mL/hr, Intravenous, EVERY 8 HOURS, First dose on 05/14/24 at 1000, Until Discontinued, Indication for anti-infective therapy: Documented infection, Site of anti-infective therapy: Skin/soft tissue, Bone/Joint $ New Bag/Syringe 05/24/2024 12:51 PM [employer] HELPER 2,000 mg 100 mL/hr $ New Bag/Syringe 05/24/2024 4:07 AM [employer] HELPER 2,000 mg 100 mL /hr $ New Bag/Syringe 05/23/2024 8:09 PM [employer]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 Flush lines with a compatible fluid, such as D5W or NS before and after ceftriaxone dose. Admin through separate lumens is acceptable., Indication for anti-infective therapy: Documented infection, Site of anti-infective therapy: Skin/soft tissue, Bone/Joint $ New Bag/Syringe 05/25/2024 5:02 PM [employer] 2,000 mg 100 mL/hr $ New Bag/Syringe 05/24/2024 8:19 PM [employer] 2,000 mg 100 mL /hr chlorhexidine (Peridex) 0.12 % oral solution 15 mL 15 mL, Mouth/Throat, 2 TIMES DAILY, First dose on 05/21/24 at 0000, Until Discontinued, Swab oral mucosa for 30 seconds. Do not brush teeth immediately after use. . WASTE DISPOSAL INSTRUCTIONS: Black Bin Disposal required. $ Given 05/26/2024 8:22 AM [employer] 15 mL $ Given 05/25/2024 8:55 PM [employer] 15 mL $ Given 05/25/2024 8:37 AM [employer] 15 mL cyclobenzaprine (Flexeril) tablet 5 mg 5 mg, Oral, 3 TIMES DAILY PRN, Muscle Spasms, Starting on 05/16/24 at 1306, Until Inna 05/26/24 at 1405 $ Given 05/16/2024 2:22 PM MONUMENT SETTER HELPER 5 mg dextrose 10 % IV bolus 12.5 g, at 999 mL/hr, Intravenous, PRN, Other, Bedside Glucose less than 70 mg/dL -If NOT able to eat and/or NPO and with IV Access, Starting on Thu05/13/24 at 2051, Until Inna 05/26/24 at 1405, If NOT able to eat and/or NPO and with IV Access: For Bedside Glucose 54-69 mg/dL give 12.5 g Dextrose IV STAT For Bedside Glucose LESS than 54 mg/dl verify with a second Bedside Glucose (from a different site) and give 25 g Dextrose IV STAT Re-check and Re-treat blood glucose EVERY , 10-25 minutes until blood glucose GREATER than or equal to 80 mg/dl. NOTIFY PROVIDER OF HYPOGLYCEMIC EVENT. dextrose 10 % IV bolus 25 g, at 999 mL/hr, Intravenous, PRN, Other, Bedside Glucose less than 70 mg/dL -If NOT able to eat and/or NPO and with IV Access, Starting on Thu05/13/24 at 2051, Until Inna 05/26/24 at 1405, If NOT able to eat and/or NPO and with IV Access: For Bedside Glucose LESS than 54 mg/dl verify with a second Bedside Glucose (from a different site) and give 25 g Dextrose IV STAT Re-check and Re-treat blood glucose EVERY - 10-25 minutes until blood glucose GREATER than or equal to 80 mg/dl. - If repeat bedside glucose 54-79 give 12.5 g Dextrose IV STAT NOTIFY PROVIDER OF HYPOGLYCEMIC EVENT. enoxaparin (Lovenox) injection 40 mg 40 mg, Subcutaneous, 2 TIMES DAILY, First dose on Thu05/13/24 at 2245, Until Discontinued, Remind Patient to not rub injection site. Could cause hematoma. $ Given 05/21/2024 8:11 AM MONUMENT SETTER HELPER 40 mg Abd Left Lower Quadr ant $ Given 05/20/2024 9:13 PM MONUMENT SETTER HELPER 40 mg Ab dominal Tissue $ Given 05/20/2024 9:12 AM MONUMENT SETTER HELPER 40 mg Ab d Left Lower Quadrant famotidine (Pepcid) tablet 40 mg 40 mg, Oral, AT BEDTIME, First dose on Thu05/13/24 at 2115, Until Discontinued $ Given 05/13/2024 10:45 PM MONUMENT SETTER HELPER 40 mg ferrous sulfate tablet 325 mg 325 mg, Oral, DAILY AFTER LUNCH, First dose on Thu05/13/24 at 2130, Until Discontinued, Take with food. Do not take within 2 hours of other medications. $ Given 05/25/2024 1:10 PM MONUMENT SETTER HELPER 325 mg $ Given 05/24/2024 12:42 PM MONUMENT SETTER HELPER 325 mg $ Given 05/23/2024 12:23 PM MONUMENT SETTER HELPER 325 mg furosemide (Lasix) tablet 10 mg 10 mg, Oral, DAILY, First dose on Thu05/14/24 at 0900, Until Discontinued $ Given 05/14/2024 8:24 AM MONUMENT SETTER HELPER 10 mg gabapentin (Neurontin) capsule 300 mg 300 mg, Oral, 3 TIMES DAILY, First dose on Thu05/13/24 at 2115, Until Discontinued $ Given 05/26/2024 8:21 AM MONUMENT SETTER HELPER 300 mg $ Given 05/25/2024 8:55 PM MONUMENT SETTER HELPER 300 mg $ Given 05/25/2024 1:10 PM MONUMENT SETTER HELPER 300 mg glucagon (Glucagen) injection 1 mg 1 mg, Subcutaneous, PRN, Bedside Glucose less than 70 mg/dL - If NOT able to eat and/or NPO and withOUT IV Access, Starting on Thu05/13/24 at 2050, Until Inna 05/26/24 at 1405, If NOT able to eat and/or NPO and NO IV Access: For Bedside glucose 54-69 mg/dL ? - Give 1 mg subcutaneous For Bedside Glucose LESS than 54 mg/dl ? -?verify with a second bedside glucose (from a different site) ? -?Give 1 mg subcutaneous Re-check and Re-treat blood glucose EVERY 10-25 minutes until blood glucose GREATER than or equal to 80 mg/dl.? NOTIFY PROVIDER OF HYPOGLYCEMIC EVENT. Reconstitute vial with 1 mL of sterile water for injection for a final concentration of 1 mg/mL; shake vial gently; use immediately and discard unused portion glucose (Diabetic Use) oral gel Oral, PRN, Other, Bedside Glucose less than 70 mg/dL, Starting on Thu05/13/24 at 2050, Until Inna 05/26/24 at 1405, If able to take oral medications: For Bedside Glucose 54 - 69 mg/dL Give 15 grams of oral carbohydrates - 1 glucose gel (see MAR) If patient refuses glucose gel, then offer: - 4 ounces of fruit juice OR - 4 ounces non-diet soda OR - 8 ounces of fat-free milk For Bedside Glucose LESS than 54 mg/dL verify with a second Bedside Glucose (from a different site) - If pt is symptomatic, do not delay treatment - If accuracy of the POC glucose is in question, confirm glucose with a STAT laboratory test Give 30 grams of oral carbohydrates - 2 glucose gels (see MAR) If patient refuses glucose gel, then offer: - 8 ounces of fruit juice OR - 8 ounces non-diet soda OR - 16 ounces of fat-free milk Re-check and Re-treat blood glucose EVERY 10-25 minutes until blood glucose GREATER than or equal to 80 mg/dl. - If on recheck, bedside glucose 54-79 mg/dL - Give 15 grams of oral carbohydrates (see above for choices) NOTIFY PROVIDER OF HYPOGLYCEMIC EVENT. heparin injection 7,500 Units 7,500 Units, Subcutaneous, EVERY 8 HOURS, First dose on 05/21/24 at 0915, Until Discontinued $ Given 05/26/2024 5:44 AM MONUMENT SETTER HELPER 7,500 Units Abdominal Tissue $ Given 05/25/2024 8:55 PM MONUMENT SETTER HELPER 7,500 Units A bdominal Tissue $ Given 05/25/2024 1:10 PM MONUMENT SETTER HELPER 7,500 Units A bd Left Lower Quadrant heparin lock flush injection 250 Units 250 Units, Intracatheter, ONCE, 1 dose, On Thu05/24/24 at 2230 $ Given 05/24/2024 10:41 PM MONUMENT SETTER HELPER 250 Units HYDROcodone-acetaminophen (Opal) 5-325 MG tablet 1 tablet 1 tablet, Oral, EVERY 4 HOURS PRN, Moderate Pain, Severe Pain, Starting on Thu05/17/24 at 1456, Until Inna 05/26/24 at 1405, Patient preference for lesser PRN pain meds may be honored when the patient requests a less strong medication, a lower dose, or a less intrusive route of administration when the lesser drug, dose and route have been ordered for the patient. This patient request must be documented in the MAR. If both oral and IV options are ordered for the same pain severity, give oral first unless patient cannot tolerate oral intake $ Given 05/24/2024 11:14 PM MONUMENT SETTER HELPER 1 tablet $ Given 05/22/2024 12:46 AM MONUMENT SETTER HELPER 1 tablet HYDROmorphone (Dilaudid) injection 0.5 mg 0.5 mg, Intravenous, EVERY 4 HOURS PRN, Moderate Pain, Starting on Thu05/15/24 at 2037, Until Thu05/17/24 at 1456, Patient preference for lesser PRN pain meds may be honored when the patient requests a less strong medication, a lower dose, or a less intrusive route of administration when the lesser drug, dose and route have been ordered for the patient. This patient request must be documented in the MAR. If both oral and IV options are ordered for the same pain severity, give oral first unless patient cannot tolerate oral intake $ Given 05/15/2024 9:01 PM MONUMENT SETTER HELPER 0.5 mg insulin aspart (NovoLOG) pen 0-4 Units 0-4 Units, Subcutaneous, AT BEDTIME, First dose on Thu05/14/24 at 2100, Until Discontinued, Low Dose: Correction Insulin Bedside glucose should be done within 30-60 minutes of correction insulin administration. BG (mg/dL) Corrective Action LESS than 70 follow Hypoglycemic guidelines, 70-220 NO bedtime correction insulin 221-260 GIVE 1 unit of insulin 261-300 GIVE 2 units of insulin 301-350 GIVE 3 units of insulin Greater than 350 GIVE 4 units of insulin and notify physician $ Given 05/22/2024 9:24 PM MONUMENT SETTER HELPER 1 Units Abdominal Tissue $ Given 05/18/2024 7:59 PM MONUMENT SETTER HELPER 2 Units Ab dominal Tissue $ Given 05/17/2024 11:12 PM MONUMENT SETTER HELPER 2 Units A bdominal Tissue insulin aspart (NovoLOG) pen 0-6 Units 0-6 Units, Subcutaneous, 3 TIMES DAILY WITH MEALS, First dose on Thu05/14/24 at 1200, Until Discontinued, Low Dose: Correction Insulin Bedside glucose should be done within 30-60 minutes of correction insulin administration. BG (mg/dL) Corrective Action LESS than 70 follow Hypoglycemic guidelines, 70-180 NO Correction insulin, 181-220 GIVE 2 units of insulin, 221-260 GIVE 3 units of insulin, 261-300 GIVE 4 units of insulin, 301-350 GIVE 5 units of insulin, Greater than 350 GIVE 6 units of insulin and notify physician. If the patient is NPO: DO NOT HOLD correction insulin If patient is eating meals and has orders for Mealtime insulin, combine and give at the same time. $ Given 05/21/2024 8:13 AM MONUMENT SETTER HELPER 2 Units Abd Right Lower Quadrant $ Given 05/18/2024 5:10 PM MONUMENT SETTER HELPER 3 Units Le ft Arm $ Given 05/18/2024 12:11 PM MONUMENT SETTER HELPER 2 Units L eft Arm insulin aspart (NovoLOG) pen 10 Units 10 Units, Subcutaneous, 3 TIMES DAILY WITH MEALS, First dose (after last modification) on Thu05/17/24 at 1800, Until Discontinued, Hold MEALTIME insulin if patient is NPO or eating less than 50% of meal -OR- If carb intake for the meal is less than 30 grams. $ Given 05/17/2024 5:31 PM MONUMENT SETTER HELPER 10 Units Left Arm insulin aspart (NovoLOG) pen 15 Units 15 Units, Subcutaneous, 3 TIMES DAILY WITH MEALS, First dose (after last modification) on Thu05/18/24 at 1200, Until Discontinued, Hold MEALTIME insulin if patient is NPO or eating less than 50% of meal -OR- If carb intake for the meal is less than 30 grams. $ Given 05/26/2024 8:22 AM MONUMENT SETTER HELPER 15 Units Left Arm $ Given 05/25/2024 5:30 PM MONUMENT SETTER HELPER 15 Units Le ft Arm $ Given 05/25/2024 12:30 PM MONUMENT SETTER HELPER 15 Units L eft Arm insulin aspart (NovoLOG) pen 4 Units 4 Units, Subcutaneous, 3 TIMES DAILY WITH MEALS, First dose on Thu05/14/24 at 0800, Until Discontinued, Hold MEALTIME insulin if patient is NPO or eating less than 50% of meal -OR- If carb intake for the meal is less than 30 grams. $ Given 05/17/2024 12:43 PM MONUMENT SETTER HELPER 4 Units Right Arm $ Given 05/17/2024 8:10 AM MONUMENT SETTER HELPER 4 Units Le ft Arm $ Given 05/16/2024 6:42 PM MONUMENT SETTER HELPER 4 Units Le ft Arm insulin glargine (Lantus) pen 10 Units 10 Units, Subcutaneous, AT BEDTIME, First dose on Thu05/13/24 at 2115, Until Discontinued, Obtain a current Blood Glucose if necessary. . WASTE DISPOSAL INSTRUCTIONS: Black Bin Disposal required. $ Given 05/13/2024 11:12 PM MONUMENT SETTER HELPER 10 Units Left Arm insulin glargine (Lantus) pen 15 Units 15 Units, Subcutaneous, AT BEDTIME, First dose (after last modification) on 05/14/24 at 2100, Until Discontinued, Obtain a current Blood Glucose if necessary. . WASTE DISPOSAL INSTRUCTIONS: Black Bin Disposal required. $ Given 05/15/2024 7:56 PM MONUMENT SETTER HELPER 15 Units Left Arm $ Given 05/14/2024 10:04 PM MONUMENT SETTER HELPER 15 Units L eft Arm insulin glargine (Lantus) pen 20 Units 20 Units, Subcutaneous, AT BEDTIME, First dose (after last modification) on Thu05/16/24 at 2100, Until Discontinued, Obtain a current Blood Glucose if necessary. . WASTE DISPOSAL INSTRUCTIONS: Black Bin Disposal required. $ Given 05/16/2024 8:59 PM MONUMENT SETTER HELPER 20 Units Left Arm insulin glargine (Lantus) pen 24 Units 24 Units, Subcutaneous, AT BEDTIME, First dose (after last modification) on 05/17/24 at 2100, Until Discontinued, Obtain a current Blood Glucose if necessary. . WASTE DISPOSAL INSTRUCTIONS: Black Bin Disposal required. $ Given 05/25/2024 9:02 PM MONUMENT SETTER HELPER 24 Units Abdominal Tissue $ Given 05/24/2024 8:19 PM MONUMENT SETTER HELPER 24 Units Ab dominal Tissue $ Given 05/23/2024 8:10 PM MONUMENT SETTER HELPER 24 Units Ab dominal Tissue lidocaine PF (Xylocaine MPF) 1 % injection Intradermal, ONCE, 1 dose, On Tu05/24/24 at 1045, For PICC line placement. Use lidocaine intradermally to produce wheal to locally anesthetize site if patient has NKA to Lidocaine. $ Given 05/24/2024 10:25 AM MONUMENT SETTER HELPER 50 mg metroNIDAZOLE (Flagyl) tablet 500 mg 500 mg, Oral, EVERY 8 HOURS, First dose on 05/14/24 at 0930, Until Discontinued, May take with food or milk., Indication for anti-infective therapy: Documented infection, Site of anti-infective therapy: Skin/soft tissue, Wound $ Given 05/26/2024 5:44 AM MONUMENT SETTER HELPER 500 mg $ Given 05/25/2024 9:04 PM MONUMENT SETTER HELPER 500 mg $ Given 05/25/2024 1:10 PM MONUMENT SETTER HELPER 500 mg ondansetron (Zofran) injection 4 mg 4 mg, Intravenous, EVERY 6 HOURS PRN, Nausea/Vomiting, Starting on 05/16/24 at 1916, Until Inna 05/26/24 at 1405, Administer over 2 to 5 minutes. pantoprazole EC (Protonix) tablet 40 mg 40 mg, Oral, DAILY, First dose on 05/14/24 at 0900, Until Discontinued, Do not crush, chew, or cut in half. $ Given 05/26/2024 8:21 AM MONUMENT SETTER HELPER 40 mg $ Given 05/25/2024 8:38 AM MONUMENT SETTER HELPER 40 mg $ Given 05/24/2024 8:13 AM MONUMENT SETTER HELPER 40 mg polyethylene glycol 3350 (Miralax) packet 17 g 17 g, Oral, DAILY, First dose on Inna 05/19/24 at 1130, Until Discontinued, Mix in 8 ounces of water, juice, soda, coffee or tea prior to administration sodium bicarbonate 8.4 % 150 mEq in sterile water (PF) infusion (fluid) at 50 mL/hr, Intravenous, CONTINUOUS, Starting on 05/14/24 at 1015, Until 05/15/24 at 0858 $ New Bag/Syringe 05/14/2024 10:30 AM MONUMENT SETTER HELPER 50 mL/hr sodium zirconium cyclosilicate (Lokelma) packet 10 g 10 g, Oral, DAILY at 1300, 3 doses, First dose on Inna 05/19/24 at 1300, Last dose on 05/21/24 at 1300, Empty entire contents of the packet(s) into a glass with greater than or equal to 3 tablespoons (45 mL) of water. Stir well and drink immediately; if powder remains in the glass, add water, stir and drink immediately; repeat until no powder remains. Administer other oral meds at least 2 hours before or 2 hours after $ Given 05/19/2024 1:57 PM MONUMENT SETTER HELPER 10 g sodium zirconium cyclosilicate (Lokelma) packet 10 g 10 g, Oral, DAILY at 1300, 2 doses, First dose (after last modification) on 05/21/24 at 1300, Last dose on 05/22/24 at 1300, Empty entire contents of the packet(s) into a glass with greater than or equal to 3 tablespoons (45 mL) of water. Stir well and drink immediately; if powder remains in the glass, add water, stir and drink immediately; repeat until no powder remains. Administer other oral meds at least 2 hours before or 2 hours after $ Given 05/22/2024 1:39 PM MONUMENT SETTER HELPER 10 g $ Given 05/21/2024 1:15 PM MONUMENT SETTER HELPER 10 g sodium zirconium cyclosilicate (Lokelma) packet 10 g 10 g, Oral, Once, 1 dose, On 05/23/24 at 1530, Empty entire contents of the packet(s) into a glass with greater than or equal to 3 tablespoons (45 mL) of water. Stir well and drink immediately; if powder remains in the glass, add water, stir and drink immediately; repeat until no powder remains. Administer other oral meds at least 2 hours before or 2 hours after $ Given 05/23/2024 5:31 PM MONUMENT SETTER HELPER 10 g tamsulosin (Flomax) capsule 0.4 mg 0.4 mg, Oral, DAILY, First dose on 12/7/24 at 0900, Until Discontinued, At the same time every day after a meal. Do not crush or chew. May open capsule and administer contents per tube. J-tube administration is not appropriate as the small lumen would necessitate crushing of granules. $ Given 05/26/2024 8:21 AM MONUMENT SETTER HELPER 0.4 mg $ Given 05/25/2024 8:38 AM MONUMENT SETTER HELPER 0.4 mg $ Given 05/24/2024 8:13 AM MONUMENT SETTER HELPER 0.4 mg vancomycin (Vancocin) 1,500 mg in 530 mL IVPB 1,500 mg, at 353.33 mL/hr, Intravenous, EVERY 12 HOURS, First dose on Thu05/14/24 at 1300, Until Discontinued, Next vancomycin TROUGH level due at 1700 on 05/16. Hold the following dose if the TROUGH level is greater than 21 mcg/mL. , Indication for anti-infective therapy: Suspected infection, Site of anti-infective therapy: Bone/Joint, Skin/soft tissue $ New Bag/Syringe 05/16/2024 5:45 AM MONUMENT SETTER HELPER 1,500 mg 353.33 mL/hr $ New Bag/Syringe 05/15/2024 1:31 PM MONUMENT SETTER HELPER 1,500 mg 353.33 mL/hr $ New Bag/Syringe 05/15/2024 12:23 AM MONUMENT SETTER HELPER 1,500 mg 353.3 3 mL/hr documented in this encounter Active and Recently Administered Medications Times are shown in MONUMENT SETTER HELPER. Scheduled Medication Order 05/24/2024 05/25/2024 05/26/2024 0.9% NaCl injection 10-40 mL 10-40 mL, Intracatheter, EVERY 8 HOURS, First dose on Thu05/24/24 at 1400, Until Discontinued, Flush each lumen of PICC with 10ml NS IVP every 8 hours (regardless of continuous IV infusion). Flushing may be contraindicated if concentrated drips are infusing. 124 ($ Given - Provider: Rio Schmitz RN)2017 ($ Given - Provider: Kang Sanders RN) 0531 ($ Given - Provider: Kang Sanders RN)1246 ($ Given - Provider: Rio Schmitz RN)2056 ($ Given - Provider: Kang Sanders RN) 0545 ($ Given - Provider: Kang Sanders RN) alteplase (Cathflo Activase) injection 2 mg (COMPLETED) 2 mg, Intravenous, ONCE, 1 dose, On Thu05/24/24 at 1815, If reconstituted by nursing, dilute 2 mg vial with 2.2 mL sterile water for final concentration of 1 mg/mL. 1. Instill the dose into the occluded catheter. 2. After 30 minutes of dwell time, assess catheter function by attempting to aspirate blood. 3. If catheter function has been restored, aspirate 4-5 mL of blood in patients weighing over 10 kg, or 3 mL in patients weighing under 10 kg, to remove Cathflo Activase and residual clot, and gently irrigate the catheter with 0.9% Sodium Chloride, LONGTERM. 1908 ($ Given - Provider: Rio Schmitz RN) artificial tears ophthalmic ointment Each Eye, EVERY 8 HOURS, First dose on 05/21/24 at 0000, Until Discontinued, Place a small strip of ointment into the eye. Wait at least 5 minutes before administering other ophthalmic medications. 0530 (Not Administered - Provider: Maggie Mojica RN - Reason: Refused-Patient)1414 (Not Administered - Provider: Rio Schmitz RN - Reason: Refused-Patient)2242 (Not Administered - Provider: Kang Sanders RN - Reason: Refused-Patient) 0531 (Not Administered - Provider: Kang Sanders RN - Reason: Refused-Patient)1246 (Not Administered - Provider: Rio Schmitz RN - Reason: Refused-Patient)2055 (Not Administered - Provider: Kang Sanders RN - Reason: Refused-Patient) 0556 (Not Administered - Provider: Kang Sanders RN - Reason: Refused-Patient) atorvastatin (Lipitor) tablet 40 mg 40 mg, Oral, AT BEDTIME, First dose on Thu05/13/24 at 2115, Until Discontinued 2008 ($ Given - Provider: Kang Sanders RN) 2055 ($ Given - Provider: Kang Sanders RN) buPROPion XL 24hr (Wellbutrin-XL) tablet 150 mg 150 mg, Oral, DAILY, First dose on 05/14/24 at 0900, Until Discontinued, Do not crush, chew, or cut in half. 0813 ($ Given - Provider: Rio Schmitz RN) 0838 ($ Given - Provider: Rio Schmitz, RN) 0821 ($ Given - Provider: Rio Schmitz, RN) cefepime (Maxipime) 2,000 mg in 0.9% NaCl IV 50 mL IVPB (CANCELED) 2,000 mg (2 g), at 100 mL/hr, Intravenous, EVERY 8 HOURS, First dose on Thu05/14/24 at 1000, Until Discontinued, Indication for anti-infective therapy: Documented infection, Site of anti-infective therapy: Skin/soft tissue, Bone/Joint 0407 ($ New Bag/Syringe - Provider: Maggie Mojica RN)0437 (Stopped - Provider: Maggie Mojica RN)1251 ($ New Bag/Syringe - Provider: Rio Schmitz RN)1413 (Stopped - Provider: Rio Schmitz RN) cefTRIAXone (Rocephin) 2,000 mg in 0.9% NaCl IV 50 mL IVPB 2,000 mg (2 g), at 100 mL/hr, Intravenous, EVERY 24 HOURS, First dose on Thu05/24/24 at 1630, Until Discontinued, Ceftriaxone can cause precipitation when administered with calcium-containing fluids, including LR. Flush lines with a compatible fluid, such as D5W or NS before and after ceftriaxone dose. Admin through separate lumens is acceptable., Indication for anti-infective therapy: Documented infection, Site of anti-infective therapy: Skin/soft tissue, Bone/Joint 2018 ($ New Bag/Syringe - Provider: Kang Sanders RN)2048 (Stopped - Provider: Kang Sanders RN) 170 ($ New Bag/Syringe - Provider: Rio Schmitz RN)1740 (Stopped - Provider: Rio Schmitz, RN) chlorhexidine (Peridex) 0.12 % oral solution 15 mL 15 mL, Mouth/Throat, 2 TIMES DAILY, First dose on Thu05/21/24 at 0000, Until Discontinued, Swab oral mucosa for 30 seconds. Do not brush teeth immediately after use. . WASTE DISPOSAL INSTRUCTIONS: Black Bin Disposal required. 0813 ($ Given - Provider: Rio Schmitz RN)2006 ($ Given - Provider: Kang Sanders RN) 0837 ($ Given - Provider: Rio Schmitz RN)2054 ($ Given - Provider: Kang Sanders RN) 08 ($ Given - Provider: Rio Schmitz RN) ferrous sulfate tablet 325 mg 325 mg, Oral, DAILY AFTER LUNCH, First dose on Thu05/13/24 at 2130, Until Discontinued, Take with food. Do not take within 2 hours of other medications. 1242 ($ Given - Provider: Rio Schmitz RN) 1310 ($ Given - Provider: Rio Schmitz RN) 1300 (Due) gabapentin (Neurontin) capsule 300 mg 300 mg, Oral, 3 TIMES DAILY, First dose on Thu05/13/24 at 2115, Until Discontinued 08 ($ Given - Provider: Rio Schmitz RN)141 ($ Given - Provider: Rio Schmitz RN)2008 ($ Given - Provider: Kang Sanders RN) 08 ($ Given - Provider: Rio Schmitz RN)131 ($ Given - Provider: Rio Schmitz RN)2054 ($ Given - Provider: Kang Sanders RN) 08 ($ Given - Provider: Rio Schmitz RN) heparin injection 7,500 Units 7,500 Units, Subcutaneous, EVERY 8 HOURS, First dose on Thu05/21/24 at 0915, Until Discontinued 05 ($ Given - Provider: Maggie Mojica RN)141 ($ Given - Provider: Rio Schmitz RN)2007 ($ Given - Provider: Kang Sanders RN) 0530 ($ Given - Provider: Kang Sanders RN)131 ($ Given - Provider: Rio Schmitz RN)2054 ($ Given - Provider: Kang Sanders RN) 0544 ($ Given - Provider: Kang Sanders RN) heparin lock flush injection 250 Units (COMPLETED) 250 Units, Intracatheter, ONCE, 1 dose, On Thu05/24/24 at 2230 2241 ($ Given - Provider: Kang Sanders RN) insulin aspart (NovoLOG) pen 0-4 Units 0-4 Units, Subcutaneous, AT BEDTIME, First dose on Thu05/14/24 at 2100, Until Discontinued, Low Dose: Correction Insulin Bedside glucose should be done within 30-60 minutes of correction insulin administration. BG (mg/dL) Corrective Action LESS than 70 follow Hypoglycemic guidelines, 70-220 NO bedtime correction insulin 221-260 GIVE 1 unit of insulin 261-300 GIVE 2 units of insulin 301-350 GIVE 3 units of insulin Greater than 350 GIVE 4 units of insulin and notify physician 2005 (Not Administered - Provider: Kang Sanders RN - Reason: See Comments - Comment: Gluicose 167) 210 (Not Administered - Provider: Kang Sanders RN - Reason: See Comments - Comment: [email or web address]) insulin aspart (NovoLOG) pen 0-6 Units 0-6 Units, Subcutaneous, 3 TIMES DAILY WITH MEALS, First dose on Thu05/14/24 at 1200, Until Discontinued, Low Dose: Correction Insulin Bedside glucose should be done within 30-60 minutes of correction insulin administration. BG (mg/dL) Corrective Action LESS than 70 follow Hypoglycemic guidelines, 70-180 NO Correction insulin, 181-220 GIVE 2 units of insulin, 221-260 GIVE 3 units of insulin, 261-300 GIVE 4 units of insulin, 301-350 GIVE 5 units of insulin, Greater than 350 GIVE 6 units of insulin and notify physician. If the patient is NPO: DO NOT HOLD correction insulin If patient is eating meals and has orders for Mealtime insulin, combine and give at the same time. 0751 (Not Administered - Provider: Rio Schmitz RN - Reason: Per Administration Instructions)1235 (Not Administered - Provider: Rio Schmitz RN - Reason: Per Administration Instructions)1712 (Not Administered - Provider: Rio Schmitz RN - Reason: Per Administration Instructions) 0813 (Not Administered - Provider: Rio Schmitz RN - Reason: Per Administration Instructions)1216 (Not Administered - Provider: Rio Schmitz RN - Reason: Per Administration Instructions)1730 (Not Administered - Provider: Rio Schmitz RN - Reason: Per Administration Instructions) 0806 (Not Administered - Provider: Rio Schmitz RN - Reason: Per Administration Instructions)1200 (Not Administered - Provider: Rio Schmitz RN - Reason: Per Administration Instructions) insulin aspart (NovoLOG) pen 15 Units 15 Units, Subcutaneous, 3 TIMES DAILY WITH MEALS, First dose (after last modification) on Thu05/18/24 at 1200, Until Discontinued, Hold MEALTIME insulin if patient is NPO or eating less than 50% of meal -OR- If carb intake for the meal is less than 30 grams. 0815 ($ Given - Provider: Rio Schmitz RN)1242 ($ Given - Provider: Rio Schmitz RN)1740 ($ Given - Provider: Rio Schmitz RN) 0836 ($ Given - Provider: Rio Schmitz RN)1230 ($ Given - Provider: Rio Schmitz RN)1730 ($ Given - Provider: Rio Schmitz RN) 0822 ($ Given - Provider: Rio Schmitz RN)1200 (Due) insulin glargine (Lantus) pen 24 Units 24 Units, Subcutaneous, AT BEDTIME, First dose (after last modification) on Thu05/17/24 at 2100, Until Discontinued, Obtain a current Blood Glucose if necessary. . WASTE DISPOSAL INSTRUCTIONS: Black Bin Disposal required. 2018 ($ Given - Provider: Kang Sanders RN) 2101 ($ Given - Provider: Kang Sanders RN) lidocaine PF (Xylocaine MPF) 1 % injection (COMPLETED) Intradermal, ONCE, 1 dose, On Thu05/24/24 at 1045, For PICC line placement. Use lidocaine intradermally to produce wheal to locally anesthetize site if patient has NKA to Lidocaine. 1025 ($ Given - Provider: Wilfredo Carlton RN) metroNIDAZOLE (Flagyl) tablet 500 mg 500 mg, Oral, EVERY 8 HOURS, First dose on Thu05/14/24 at 0930, Until Discontinued, May take with food or milk., Indication for anti-infective therapy: Documented infection, Site of anti-infective therapy: Skin/soft tissue, Wound 05 ($ Given - Provider: Maggie Mojica RN)1414 ($ Given - Provider: Rio Schmitz RN)2008 ($ Given - Provider: Kang Sanders, ARYAN) 0530 ($ Given - Provider: Kang Sanders, ARYAN)1310 ($ Given - Provider: Rio Schmitz RN)210 ($ Given - Provider: Kang Sanders, ARYAN) 0544 ($ Given - Provider: Kang Sanders, ARYAN) pantoprazole EC (Protonix) tablet 40 mg 40 mg, Oral, DAILY, First dose on Thu05/14/24 at 0900, Until Discontinued, Do not crush, chew, or cut in half. 0813 ($ Given - Provider: Rio Schmitz RN) 0838 ($ Given - Provider: Rio Schmitz RN) 0821 ($ Given - Provider: Roi Schmitz RN) polyethylene glycol 3350 (Miralax) packet 17 g 17 g, Oral, DAILY, First dose on Inna 05/19/24 at 1130, Until Discontinued, Mix in 8 ounces of water, juice, soda, coffee or tea prior to administration 0813 (Not Administered - Provider: Rio Schmitz RN - Reason: Refused-Patient - Comment: Pt had multiple BM this morning.) 0837 (Not Administered - Provider: Rio Schmitz RN - Reason: Refused-Patient) 0821 (Not Administered - Provider: Rio Schmitz RN - Reason: Refused-Patient) tamsulosin (Flomax) capsule 0.4 mg 0.4 mg, Oral, DAILY, First dose on 05/14/24 at 0900, Until Discontinued, At the same time every day after a meal. Do not crush or chew. May open capsule and administer contents per tube. J-tube administration is not appropriate as the small lumen would necessitate crushing of granules. 0813 ($ Given - Provider: Rio Schmitz RN) 0838 ($ Given - Provider: Rio Schmitz RN) 0821 ($ Given - Provider: Rio Schmitz RN) PRN Medication Order 05/24/2024 05/25/2024 05/26/2024 0.9% NaCl flush bag at 20 mL/hr, 250 mL, CONTINUOUS PRN, Starting on Thu05/13/24 at 2220, Until Thu05/26/24 at 1405, FLUSH BAG, Use for: IVPB flush 0.9% NaCl injection 10-40 mL 10-40 mL, Intracatheter, PRN, Other, PICC line flush, Starting on Thu05/24/24 at 1022, Until Inna 05/26/24 at 1405, Flush each lumen of PICC with 10ml NS IVP before and after medication/solution administration for patency and blood return. Flush each lumen of PICC with 20 ml NS IVP after each infusion of blood products or lipids, and after each blood draw. 2240 ($ Given - Provider: Kang Sanders RN) acetaminophen (Tylenol) tablet 650 mg 650 mg, Oral, EVERY 6 HOURS PRN, Fever, Mild Pain, Starting on Thu05/18/24 at 1114, Until Inna 05/26/24 at 1405, Patient preference for lesser PRN pain meds may be honored when the patient requests a less strong medication, a lower dose, or a less intrusive route of administration when the lesser drug, dose and route have been ordered for the patient. This patient request must be documented in the MAR. If both oral and IV options are ordered for the same pain severity, give oral first unless patient cannot tolerate oral intake benzonatate (Tessalon) capsule 100 mg 100 mg, Oral, 3 TIMES DAILY PRN, Cough, Starting on Thu05/17/24 at 1335, Until Thu05/26/24 at 1405 1841 ($ Given - Provider: Rio Schmitz RN) cyclobenzaprine (Flexeril) tablet 5 mg 5 mg, Oral, 3 TIMES DAILY PRN, Muscle Spasms, Starting on Thu05/16/24 at 1306, Until Thu05/26/24 at 1405 dextrose 10 % IV bolus(Linked Group 1) 12.5 g, at 999 mL/hr, Intravenous, PRN, Other, Bedside Glucose less than 70 mg/dL -If NOT able to eat and/or NPO and with IV Access, Starting on Thu05/13/24 at 2051, Until Inna 05/26/24 at 1405, If NOT able to eat and/or NPO and with IV Access: For Bedside Glucose 54-69 mg/dL give 12.5 g Dextrose IV STAT For Bedside Glucose LESS than 54 mg/dl verify with a second Bedside Glucose (from a different site) and give 25 g Dextrose IV STAT Re-check and Re-treat blood glucose EVERY , 10-25 minutes until blood glucose GREATER than or equal to 80 mg/dl. NOTIFY PROVIDER OF HYPOGLYCEMIC EVENT. dextrose 10 % IV bolus(Linked Group 1) 25 g, at 999 mL/hr, Intravenous, PRN, Other, Bedside Glucose less than 70 mg/dL -If NOT able to eat and/or NPO and with IV Access, Starting on Thu05/13/24 at 2051, Until Inna 05/26/24 at 1405, If NOT able to eat and/or NPO and with IV Access: For Bedside Glucose LESS than 54 mg/dl verify with a second Bedside Glucose (from a different site) and give 25 g Dextrose IV STAT Re-check and Re-treat blood glucose EVERY - 10-25 minutes until blood glucose GREATER than or equal to 80 mg/dl. - If repeat bedside glucose 54-79 give 12.5 g Dextrose IV STAT NOTIFY PROVIDER OF HYPOGLYCEMIC EVENT. glucagon (Glucagen) injection 1 mg(Linked Group 1) 1 mg, Subcutaneous, PRN, Bedside Glucose less than 70 mg/dL - If NOT able to eat and/or NPO and withOUT IV Access, Starting on Thu05/13/24 at 2050, Until Inna 05/26/24 at 1405, If NOT able to eat and/or NPO and NO IV Access: For Bedside glucose 54-69 mg/dL ? - Give 1 mg subcutaneous For Bedside Glucose LESS than 54 mg/dl ? -?verify with a second bedside glucose (from a different site) ? -?Give 1 mg subcutaneous Re-check and Re-treat blood glucose EVERY 10-25 minutes until blood glucose GREATER than or equal to 80 mg/dl.? NOTIFY PROVIDER OF HYPOGLYCEMIC EVENT. Reconstitute vial with 1 mL of sterile water for injection for a final concentration of 1 mg/mL; shake vial gently; use immediately and discard unused portion glucose (Diabetic Use) oral gel Oral, PRN, Other, Bedside Glucose less than 70 mg/dL, Starting on Thu05/13/24 at 2050, Until Inna 05/26/24 at 1405, If able to take oral medications: For Bedside Glucose 54 - 69 mg/dL Give 15 grams of oral carbohydrates - 1 glucose gel (see MAR) If patient refuses glucose gel, then offer: - 4 ounces of fruit juice OR - 4 ounces non-diet soda OR - 8 ounces of fat-free milk For Bedside Glucose LESS than 54 mg/dL verify with a second Bedside Glucose (from a different site) - If pt is symptomatic, do not delay treatment - If accuracy of the POC glucose is in question, confirm glucose with a STAT laboratory test Give 30 grams of oral carbohydrates - 2 glucose gels (see MAR) If patient refuses glucose gel, then offer: - 8 ounces of fruit juice OR - 8 ounces non-diet soda OR - 16 ounces of fat-free milk Re-check and Re-treat blood glucose EVERY 10-25 minutes until blood glucose GREATER than or equal to 80 mg/dl. - If on recheck, bedside glucose 54-79 mg/dL - Give 15 grams of oral carbohydrates (see above for choices) NOTIFY PROVIDER OF HYPOGLYCEMIC EVENT. HYDROcodone-acetaminophen (Opal) 5-325 MG tablet 1 tablet 1 tablet, Oral, EVERY 4 HOURS PRN, Moderate Pain, Severe Pain, Starting on Thu05/17/24 at 1456, Until Thu05/26/24 at 1405, Patient preference for lesser PRN pain meds may be honored when the patient requests a less strong medication, a lower dose, or a less intrusive route of administration when the lesser drug, dose and route have been ordered for the patient. This patient request must be documented in the MAR. If both oral and IV options are ordered for the same pain severity, give oral first unless patient cannot tolerate oral intake 2314 ($ Given - Provider: Kang Sanders RN) ondansetron (Zofran) injection 4 mg 4 mg, Intravenous, EVERY 6 HOURS PRN, Nausea/Vomiting, Starting on Thu05/16/24 at 1916, Until Thu05/26/24 at 1405, Administer over 2 to 5 minutes. Linked Groups Order Group 1: dextrose 10 % IV bolusJump to med 12.5 g, at 999 mL/hr, Intravenous, PRN, Other, Bedside Glucose less than 70 mg/dL -If NOT able to eat and/or NPO and with IV Access, Starting on Thu05/13/24 at 2051, Until Thu05/26/24 at 1405, If NOT able to eat and/or NPO and with IV Access: For Bedside Glucose 54-69 mg/dL give 12.5 g Dextrose IV STAT For Bedside Glucose LESS than 54 mg/dl verify with a second Bedside Glucose (from a different site) and give 25 g Dextrose IV STAT Re-check and Re-treat blood glucose EVERY , 10-25 minutes until blood glucose GREATER than or equal to 80 mg/dl. NOTIFY PROVIDER OF HYPOGLYCEMIC EVENT. Or dextrose 10 % IV bolusJump to med 25 g, at 999 mL/hr, Intravenous, PRN, Other, Bedside Glucose less than 70 mg/dL -If NOT able to eat and/or NPO and with IV Access, Starting on Thu05/13/24 at 2050, Until Inna 05/26/24 at 1405, If NOT able to eat and/or NPO and with IV Access: For Bedside Glucose LESS than 54 mg/dl verify with a second Bedside Glucose (from a different site) and give 25 g Dextrose IV STAT Re-check and Re-treat blood glucose EVERY - 10-25 minutes until blood glucose GREATER than or equal to 80 mg/dl. - If repeat bedside glucose 54-79 give 12.5 g Dextrose IV STAT NOTIFY PROVIDER OF HYPOGLYCEMIC EVENT. Or glucagon (Glucagen) injection 1 mgJump to med 1 mg, Subcutaneous, PRN, Bedside Glucose less than 70 mg/dL - If NOT able to eat and/or NPO and withOUT IV Access, Starting on Thu05/13/24 at 2050, Until Inna 05/26/24 at 1405, If NOT able to eat and/or NPO and NO IV Access: For Bedside glucose 54- 69 mg/dL ? - Give 1 mg subcutaneous For Bedside Glucose LESS than 54 mg/dl ? -?verify with a second bedside glucose (from a different site) ? -?Give 1 mg subcutaneous Re-check and Re-treat blood glucose EVERY 10-25 minutes until blood glucose GREATER than or equal to 80 mg/dl.? NOTIFY PROVIDER OF HYPOGLYCEMIC EVENT. 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
--- OUTSIDE RECORDS SUMMARY | 2024-06-08 | XMS_ITS | Encounter Summary ---
Author Organization [facility] Health Address [address] [place] [address] Care Team Providers Care Digital Asset Manager Name Role Phone Nguyễn Bingham MD Primary Care Provider [phone] Reason for Visit * Auth/Cert (Routine) Specialty Diagnoses / Procedures Referred By Padmini t Referred To Contact Diagnoses Foot Ulcer Referral ID Status Reason Start Date Expiration Date Visits Re quested Visits Authorized [id number] 1 1 Encounter Details Date Type Department Care Team (Late st Contact Info) Description 05/20/2024 1:00 PM SOLAR SALES ASSESSOR - 05/20/2024 2:31 PM SOLAR SALES ASSESSOR Surgery [facility] [address] [place] [address] Abby Quinn DPM [address] [address] DEBRIDEMENT FOOT WOUND WITH GRAFT- LEFT Surgery Details Date/Time Status Location OR Service Patient Class Case Class Case Type Trauma Case? 05/20/2024 1:00 PM Posted [facility] OR OR 10 Podiatry Inpatient Work Ins >24 Hrs to 5 Days Panel 1 Procedure LRB Anes Op Region Wound Class Comments DEBRIDEMENT FOOT WOUND WITH GRAFT- LEFT Left MAC Foot Dirty or Infected Surgeon Surgeon Role Service Panel Abby Quinn DPM Primary Podiatry 1 Special Needs NEEDS SKATING CARHOP, TPS, VERSAJET, VASHE IRRIGATION SOLUTION, INTEGRA EP (JAGJIT) NOTIFIED PER OFFICE(QUEENIE) 05/19 TM documented in this encounter Social History Tobacco [...] Recorded Patient Health Questionnaire-2 Score 1 10/01/2023 [facility] - Occupational Stress [...] any time in the past 12 m [facility], were you homeless or living in a custodial (including now)? No 05/13/2024 Sex and Gender Information Value Date Recorded Sex Assigned at Not on file Gender Identity Not on file Sexual Orientation Not on file documented as of this encounter Last Filed Vital Signs Vital Sign Reading Time Taken Comments Blood Pressure 156/77 05/20/2024 8:57 AM SOLAR SALES ASSESSOR Pulse 90 05/20/2024 8:57 AM SOLAR SALES ASSESSOR Temperature 37 ??C (98.6 ??F) 05/20/2024 8:57 AM SOLAR SALES ASSESSOR Respiratory Rate 19 05/20/2024 8:57 AM SOLAR SALES ASSESSOR Oxygen Saturation 94% 05/20/2024 8:57 AM SOLAR SALES ASSESSOR Inhaled Oxygen Concentration 21% 02/2024 11:13 PM SOLAR SALES ASSESSOR Weight 183.9 kg (405 lb 6.4 oz) 024 10:13 PM SOLAR SALES ASSESSOR Height 200.7 cm (6' 7 ) 05/13/2024 10:1 3 PM SOLAR SALES ASSESSOR Body Mass Index 45.67 05/13/2024 10:13 PM SOLAR SALES ASSESSOR documented in this encounter Functional Status Functional [...] on 05/20 by Podiatry CHRISTIE DISCHARGE DESTINATION: alf facility FOLLOW UP PLAN: Include list of [...] M noncompliant Pt is a transfer from [facility]. Pt preseneted with LLE wound. He [...] denied acute rehab. Patient was accepted to correction facility. PICC line was placed on 05/24. Podiatry recommended partial weight- bearing through left forefoot with walker. He was discharged to facility with recommendation to follow up outpatient with his PCP, sulphate tester and Infectious Disease physician. He is to [...] results for input(s): INR in the last 11680 hours. VITALS/MENTAL STATUS/NOTIBLE EXAM FINDINGS Most recent weight: Weight: (!) 183.9 kg (405 lb 6.4 oz) (05/13/24 2213) BP 115/73 (BP Location: Left arm, Patient [...] optimize healing. Bao can be purchased at [facility] located across from [facility] ([address] [place] [address]) for a reduced cost. fire support specialist is encouraged to prevent delivery fees, but if this isn't feasible it can be delivered to the home by calling [phone]. Zana Tolentino MD polyethylene glycol 3350 17 [...] evening meal vitamin D (ergocalciferol) 1.25 MG (00634 UT) capsule What changed: Another medication with [...] (one) capsule by mouth 3 times daily JUAQUIN SterlingNIGHT CLEANER insulin lispro 100 UNIT/ML pen Commonly known [...] time every day after a meal. Cassandra Moore APRN-YVETTE TRUEplus Pen [place] 31G X 5 MM needle Generic drug: insulin pen needle STOP taking these medications amLODIPine 5 MG tablet Commonly known as: Norvasc calcium carbonate 1250 (500 Ca) MG tablet Commonly known as: Os-Wilfredo 500 cephalexin 500 MG capsule Commonly known as: Keflex Cholecalciferol 1.25 MG (29604 UT) famotidine 40 MG tablet Commonly known [...] Family Medicine Relationship: PCP - General [address] [facility] [address] [place] [address] Next Steps: Follow up Our records show your Primary Care Provider (PCP) is Nguyễn Bingham MD. Follow Up Instructions for Patient: Within 5 Days from Discharge Abby Quinn DPM Specialty: Podiatry [address] [place] [address] Next Steps: Follow up Follow Up Instructions for Patient: Within 5-10 Days from Discharge Hattie Liao MD Specialty: Infectious Disease, Internal Medicine [address] [place] [facility] [address] Next Steps: Follow up Follow Up Instructions for Patient: Within 5-10 Days from Discharge Contact information for after-discharge care Destination [facility] [address] [place] [address] [facility] [address] ISOLATION PRECAUTIONS No active isolations. Isolation due to No active infections. I spent 35 minutes in addition to direct patient care summarizing this patient's hospital stay, reviewing and updating the inpatient problem list, reviewing discharge medications, instructions, discussing discharge care planand discharge follow up labs/studies/doctor visits with the patient and or POA/family. Tereza Mcpherson MD R SALES ASSESSOR documented in this encounter Discharge Instructions * Discharge Instructions* Tereza Mcpherson MD - 05/17/2024 3:41 PM SOLAR SALES ASSESSOR Images from the original note were not included. Please obtain weekly CBC, CMP, UA and sed rate and send results to Dr. Hattie Liao at fax number:[phone] Social Security Disability Assistance *These 2 agencies help individuals try and succeed in getting SSD. That is all they do. Very good resource to try, especially if you've been denied SSD in the past. Public Good Software. Mention Code [facility] for a discounted rate. [phone] ext: 222 or www.Huiyuan [facility] [phone] or www.SecondLeap There are 3 ways to apply for SSD in [place]. You can call the main [facility] phone line for help at [phone] or schedule an appt with your local [facility] office (/bbotws-tjokqicn-inodxdjiur-locations/[place]), or complete an application (http://www.[employer].gov/pgm/disability.htm). If you need help finding your local [facility] office call the number above or go to (https://secure.[employer].gov/apps6z/DIMITRIOS/fo001.jsp). To look into VA home care for your mother you can call Justina [phone] To look into Private Duty Services: for the Older [place] people: [place]: Senior Services Dept of Aging - They will provide the first 2 weeks free Homemaker services 5 days a week 5 hours a day then Pt will have to private pay. Senior Service of [facility] [place] ([facility]) [phone]; . [facility] Cristopher [place] ([place]) [phone]; Community Care Program Agency Area on Aging ([facility]) [phone]; Clarita Mack [facility] ([facility] [place] [facility]): [phone] [place] does have a program for younger people to help with services in the home. https://wr.[facility].[place].gov/wrpublic/wr/dynamic/referral.jsf Help thru the [place] in your area for your mother. Contact them norris: Contact Information Physical Address [address] [facility] [facility], [address] LADI Marie [address]Hbfeljz Address [address] [place] [address]Ggulp Number You have been enrolled in [facility] Hakia's Bread Basket Program. Please show this to the attendant at the [facility] and they will provide you with bag(s) of nonperishable food when you discharge and are heading home. The Gift Shop is open Thursday- 8am - 4pm and Thursday 7am - 3pm. 05/23/24: DIPIKA Jeffers referral for [facility] foodbank program. www.stfoodbank.org or call [phone]. MONTYS/ISHAAN Empowering People with Disabilities through Home Services-call number below if you do go back home so you can be assessed for possible electronic equipment trades worker to come in and help YOU at home with cooking, cleaning, laundry, errands, etc... The [place] Department of Human Services' Division of Rehabilitation Services (IDHS/ISHAAN) is the state's lead agency serving persons with disabilities. Our staff work one-on-one with individuals who have disabilities and their families to empower them to reach their employment, education, and independent living goals. Through the Home Services Program, [facility] provides services to individuals with the most [...] be obtained on any IP hired by [facility]. Homemaker Services: Agency-based services for personal care and household tasks provided by trainedand professionally supervised staff. Home Health Services: HEAVY EQUIPMENT MECHANIC, EXPLOSIVE OPERATOR FUSE roof bolter operator services prescribed by the physician to meet [...] family crisis or emergency. Services may include representative personal service, adult day care, homemaker or home health. [...] provides eligible persons who reside in a group home the opportunity for integrated independent community living [...] For more information: Call or visit your [place] Department of Human Services' Division of Rehabilitation Services Office. If you have questions about any [place] Department of Human Services (IDHS) program, you may call the automated helpline 24 hours a day at: (TTY) You may speak to a internet sales representative between: 8:00 a.m. - 5:30 p.m. Thursday - Thursday (except state holidays) For answers to your questions, you may also write: [facility] Services Office of Customer Support [address] [place] [address] Visit our website at: www.[facility].pa. Latanya LINDSEY, MPH, [facility] [phone] R SALES ASSESSOR documented in this encounter Medications at Time [...] optimize healing. Bao can be purchased at [facility] located across from [facility] ([address] [place] [address]) for a reduced cost. fire support specialist is encouraged to prevent delivery fees, but if this isn't feasible it can be delivered to the home by calling [phone]. 05/16/2024 06/13/2024 pantoprazole EC (Protonix) 40 MG [...] mg subcutaneously every 7 days TRUEplus Pen [place] 31G X 5 MM needle 06/19/2023 vitamin D, ergocalciferol, (Drisdol) 1.25 MG (91584 UT) capsule Take 1 (one) capsule by mouth every 7 days Takes on thursday documented as of this encounter Progress Notes * Rio Schmitz RN - 05/26/2024 1:04 PM CST Pt discharged to [facility]. Pt unhooked from wound vac, and wound vac supplies returned. Wet to dry dressing in place. Pt's belonging gathered and given to EMS. [facility] R SALES ASSESSOR * Rio Schmitz RN - 05/26/2024 11:07 AM CST Report called to [facility]. Report given to Jesica. R SALES ASSESSOR * Latanya Sims LCSW - 05/26/2024 8:29 AM CST Facility Transfer Note Level of Care: Skilled Rehab Payor Source: Managed Medicaid [facility] Facility Name: (include name of person confirming admission): [facility]. Nina/admissions [phone] [place] Made Aware of Special Needs (if applicable): Yes; bariatric. Low air loss mattress, bariatric bed, bariatric BSC, bariatric walker, etc. May decide to d/c to [facility] after SNF so he and his mother can both move into [place]. She is already there respite. RN Call Report to: [phone] going to room 103 RN Fax D/C Orders to: [phone] Transportation: [place] ; Trip # [id number] 10 am pick remover Certificate of Medical Necessity rationale: infected diabetic left foot ulcer, wound vac, IV, osteomyelitis of left food, CHRISTIE, ARF, DMII, HTN, Anemia, Anxiety, Depression, Diabetic neuropathy, GERD BPH, bariatric, high fall risk, weak and debilitated. Date/time of transfer: 05/26/24; pick remover at noon Accepting MD: Dr. Miki Anand Completed and Signed [id number] (if applicable): not applicable Family/Other Notified of Transfer (name/phone): Extended Emergency Contact Information Primary Emergency Contact: CLARA HYATT Relation: Mother Secondary Emergency Contact: unknown(friend/pharmacist)Monse Mobile Relation: None *Patient is aware of d/c today to [facility] with pick remover around noon. Authorization Skilled Care: Authorization for Transportation: Comments: SW added numerous resources to AVS for patient upon d/c. He is aware. Latanya Sims LCSW 05/26/2024 8:29 AM Extensions: [phone] or [phone] R SALES ASSESSOR * Kang Sanders RN - 05/25/2024 10:48 [...] indep PWB L LE forefoot Outcome: Progressing R SALES ASSESSOR * Christie Vasquez OT - 05/25/2024 3:16 PM CST Occupational Therapy Treatment Summary Chart reviewed for diagnosis and medical systems review. Nursing consented for OT. Explained purpose of OT and patient consented to participate in therapy. Admitted; 1. Ulcer of left foot with other severity ([facility]) 2. CHRISTIE (acute kidney injury) ([facility]) 3. Left foot infection 4. Diagnosis unknown [...] this serves as the discharge summary. [id number] R SALES ASSESSOR * Naima Foster, PT - 05/25/2024 2:56 PM CST Physical Therapy Treatment Summary Chart review completed. Nursing consented for PT. Explained purpose of PT and patient consented to participate in therapy. Admitting Diagnosis: 1. Ulcer of left foot with other severity ([facility]) 2. CHRISTIE (acute kidney injury) ([facility]) 3. Left foot infection 4. Diagnosis unknown [...] the discharge summary. BRYNN Mcnamara x [phone] R SALES ASSESSOR * Christel Barcenas RN - 05/25/2024 2:49 PM CST Care Coordination Progress Note Expected Discharge Date: 05/26/2024 Discharge Plan: SNF at [facility]. Medically stable for DC. SW following for placement. Facility able to accept 05/26 10am. Family Support (Name and Phone): Extended Emergency Contact Information Primary Emergency Contact: RADHA HYATTINE Relation: Mother Secondary Emergency Contact: unknown(friend/pharmacist)Monse [employer] Relation: None Transportation at Discharge: (cab or ambulance): READMISSION RISK SCORE is 11 at 2:49 PM 05/25/2024.: Name: Christel Barcenas RN Case Manager R SALES ASSESSOR * Latanya Sims PLUMBING ASSEMBLER - 05/25/2024 1:56 PM CST Facility Transfer Note Level of Care: Skilled Rehab Payor Source: Managed Medicaid [facility] Facility Name: (include name of person confirming admission): [facility]. Nina/admissions [phone] [place] Made Aware of Special Needs (if applicable): Yes; bariatric. Low air loss mattress, bariatric bed, bariatric BSC, bariatric walker, etc. May decide to d/c to [facility] after SNF so he and his mother can both move into [place]. She is already there respite. RN Call Report to: [phone] going to room 103 RN Fax D/C Orders to: [phone] Transportation: [place] ; Trip # [id number] 10 am pick remover Certificate of Medical Necessity rationale: infected diabetic left foot ulcer, wound vac, IV, osteomyelitis of left food, CHRISTIE, ARF, DMII, HTN, Anemia, Anxiety, Depression, Diabetic neuropathy, GERD BPH, bariatric, high fall risk, weak and debilitated. Date/time of transfer: 05/26/24; pick remover at 10am Accepting MD: HADLEY Completed and Signed [id number] (if applicable): not applicable Family/Other Notified of Transfer (name/phone): Extended Emergency Contact Information Primary Emergency Contact: CLARA HYATT Relation: Mother Secondary Emergency Contact: unknown(friend/pharmacist)Monse Mobile Relation: None *Patient is aware of d/c tomorrow morning to SNF Authorization Skilled Care: Authorization for Transportation: Comments: SW added numerous resources to AVS for patient upon d/c. He is aware. Latanya Sims LCSW, FRESH WORK WRAPPER LAYER, MPH Extensions: [phone] or [phone] R SALES ASSESSOR * Abby Quinn DPM - 05/25/2024 1:40 [...] (Diabetic Use) oral gel, Oral, PRN HYDROcodone-acetaminophen ([place]) 5-325 MG tablet 1 tablet, Oral, q4h [...] results for input(s): INR in the last 23301 hours. No results for input(s): PT in the last 66684 hours. No results for input(s): PTT in the last 19258 hours. GENERAL: Conversant; NAD PSYCHE: Alert and [...] Labs reviewed - ID/ IM to determine termite control service representative Antibiotic therapy. S/P Surgical Debridement of left [...] the wound center with me here at [facility] or with his home Bridge Worker Apprentice/ wound care physician within 2 weeks of discharge. Patient is at high risk for limb loss. R SALES ASSESSOR * Latanya Sims LCSW - 05/25/2024 1:06 PM CST Social Work Progress Note *medically ready as of 05/23/24. Doctor did not want to do the P2P. Did not feel patient was a candidate for AR; therefore, SW continued to work on SNF back up thru his [facility] medicaid. Discharge Plan Disposition: plan is going to be SNF/[facility]. . DIPIKA called Esper[employer] and got the CM email: [email or web address] The rep will request again that Sally reach out to me for d/c planning assistance since she is his CM with [place]. Ref: [id number]. SW received a call from Sally/CYNTHIA mcbride. [phone]. DIPIKA was in the room with cristobal at the time as well. CYNTHIA was not able to provide a HH listing of agencies by him in network, said she doesn't have access to that. I inquired about if SNF is covered and she was unable to answer that as well. Said I would need to call [place] customer service. I asked her about possible electronic equipment trades worker services for him. She said I can put a request into [facility] over on the [place] side which is like Dept of Family [...] He will think about possibly moving into [facility], where she is currently at, after his SNF stay at [facility]. DIPIKA updated Nina/admissions at [facility] about possible plan as well to go directly to [place] from them once done with SNF. SNF is ordering bariatric bed with low airloss mattress, bariatric beside commode, bariatric walker so he can work with therapy there. Does not need CPAP. Has not worn one since here. DIPIKA asked nursing to set pick remover for tomorrow at 10am. Transportation: [employer] ambulance can bill [facility] insurance: infected diabetic left foot ulcer, wound [...] daily up to 07/01/24 (tentatively). Nextoption is SNF/[facility]. He is open to that but would like to speak with his mother.We called [facility]arrow and for activities to call me back norris so he can speak with her. SW asked facility about dye house helper for his mother's phone. They found a dye house helper for her to use and charged phone [...] a new home. She's a pharmacist at [facility] [employer] [facility] [employer] in [place], [place]. He is paying her to go by in the meantime and feed them and provide water, etc. They have never had their shots. While I was in the room he called his bank/[facility] with kashia/Jes. Jes was on speaker phone and sounded very close and concerned about Cristobal. [facility] town so they know one another well. Apparently, Jes is speaking with some of his coworkers to see if anyone at the [employer] is willing to take the cats. Patient asked for $20,000 to be moved from their money market account to his checking account. Jes will do so, but jes reminded him that there is already $23,000 in the checking. Rene explained that his mother is going to need to stay in [place] at least until Rene is finished with [...] him that she should just stay at [facility] and he can come visit her. He really doesn't want to do that; but then he began to talk about how large thehome is and it's too much for him to handle. I told him it sounds like the best plan would be for him to 1. Start by going to SNF at [facility]. While there he can work with their SS worker and look into realtors over there who can maybe help sell their home, etc and he can just move into [place] with his mother. He seemed to like that idea. I explained, if he ever gets better down the road, or if whenever his mother passes, if he's strong enough to move out then he can look into that and get a new accessible apt. Just take one day at a time. Right now working on getting himto the SNF tomorrow with pick remover around 10am. They are ordering all his DME. SW reminded him of allthe resources that will be on the AVS. Comments: DIPIKA spent ~3 hours on Mr. Hyatt and his case today. DIPIKA will NOT make a referral to DORs but added info to AVS in case patient ever decides to go back home he will FOR SURE need to call themto get assessed. Name/Phone number: Latanya Sims LCSW , FRESH WORK WRAPPER LAYER, MPH Extensions: [phone] or [phone] R SALES ASSESSOR * Emmanuelle Barragan RN - 05/25/2024 12:58 PM CST New consult placed for traumatic abrasion to scrotum during transfer to [facility]. Skin with partial thickness skin loss. [place]. Zinc spray applied by nursing which is [...] Trauma Type: Single;Abrasion(s) Location: Scrotum Site Assessment [place] Exudate Description Scant;Serosanguinous Dressing/Treatment Open to air;Moisture barrier cream with zinc Dressing Status Not Applicable R SALES ASSESSOR * Chi HoffmanGRETTA - 05/25/2024 12:39 PM [...] am. The wound has been treated with Cefepime,and metronidazole, Wound vac has been applied and [...] digital tracings are pulsatile. Gerry Garcia MD, [facility], Vascular & Interventional radiologist, reviewed the [...] Labs reviewed - ID/ IM to determine termite control service representative Antibiotic therapy. S/P Surgical Debridement of left [...] Labs reviewed - ID/ IM to determine detention Antibiotic therapy. S/P Surgical Debridement of left [...] weight bearing through left forefoot with walker. R SALES ASSESSOR * Tereza Mcpherson MD - 05/25/2024 11:24 AM CST [...] Full Tereza Mcpherson MD 05/25/2024 11:25 AM R SALES ASSESSOR * Rio Schmitz RN - 05/25/2024 10:46 [...] to engage in desired activity. Outcome: Progressing * Sherrell Deal - 05/25/2024 9:26 AM CST Patient provided list of in-network home health care. Home Health Referrals have been initiated based on patient's choice: Continued Care and Services - Admitted Since 05/13/2024 Destination Service Provider Request Status Selected Services Address Phone Fax Patient Preferred [facility] Accepted -- [address] [facility] [address] [phone] -- Internal Comment last updated by Latanya Sims LCSW 05/23/2024 0853 05-20-24 However, per Nina/admissions [phone], can only do IV Q24. [facility] -- [address], [facility] [id number] -- [facility] Pending - Request Sent -- [address] [facility] - [facility] [phone] -- [facility] / [facility] Pending - Request Sent -- [address] [facility] [phone] -- [facility] Pending - Request Sent -- [address] [phone] -- [facility] (formerly [facility]) Declined Facility full -- [address] [place] [phone] -- [facility] Declined -- [address] [address] [phone] -- Home Medical Care Service Provider Request Status Selected Services Address Phone Fax Patient Preferred [facility] Pending - Request Sent -- [address] [place], [place] [address] [phone] -- [facility] Pending - Request Sent -- [address] [facility] [address] [phone] -- [facility] Pending - Request Sent -- [address] [facility] [phone] -- [facility] Pending - Request Sent -- [address] [facility] [phone] -- [facility] Pending - Request Sent -- [address] [place] [phone] -- R SALES ASSESSOR * Hattie Liao MD - 05/25/2024 9:21 [...] results for input(s): CDIFFTOXINAB in the last 93576 hours. No results for input(s): SEDRATE in the last 69159 hours. No results for input(s): CRP in the last 71931 hours. Recent Labs Component Name 05/14/24 0403 [...] CBC, CMP, UA, sed rate. Fax results [phone] Discussed with RN and DIPIKA Liao MD R SALES ASSESSOR * Kang Sanders RN - 05/24/2024 11:10 [...] and non-pharmacological pain management strategies. Outcome: Progressing R SALES ASSESSOR * Abby Quinn DPM - 05/24/2024 6:01 [...] (Diabetic Use) oral gel, Oral, PRN HYDROcodone-acetaminophen ([place]) 5-325 MG tablet 1 tablet, Oral, q4h [...] results for input(s): INR in the last 28694 hours. No results for input(s): PT in the last 00784 hours. No results for input(s): PTT in the last 92854 hours. GENERAL: Conversant; NAD PSYCHE: Alert and [...] digital tracings are pulsatile. Gerry Garcia MD, [facility], Vascular & Interventional radiologist, reviewed the [...] Labs reviewed - ID/ IM to determine detention Antibiotic therapy. S/P Surgical Debridement of left [...] the wound center with me here at [facility] or with his home Bridge Worker Apprentice/ wound care physician within 2 weeks of discharge. Patient is at high risk for limb loss. R SALES ASSESSOR * Javier Alcazar RD/CAYETANO - 05/24/2024 3:50 [...] Ferrous sulfate, Novolog, Lantus, and Protonix. Last . Med/Surg History and Clinical Diagnoses: infected DM [...] Stools: Stools (# of stools): 1 (05/24/24 2201) Stool Appearance : Loose;Soft (05/24/24 1534) Stool Amount: Small (05/24/24 153) Skin/Wound: LLE wound Estimated Needs: KCAL: 7022-8471 kcals (11-14 kcal/kg of ABW) Protein (g): [...] results for input(s): MAGNESIUM in the last 20318 hours. Recent Labs Component Name 05/18/24 0338 [...] (Diabetic Use) oral gel, Oral, PRN HYDROcodone-acetaminophen ([place]) 5-325 MG tablet 1 tablet, Oral, q4h PRN ondansetron (Zofran) injection 4 mg, Intravenous, q6h PRN Edema RLE Edema: Moderate pitting, indentation subsides rapidly (05/22/24 003) LLE Edema: Deep pitting, indentation remains for a short time (05/22/24 003) Nutrition Diagnostic Statement: Increased nutrient needs related [...] current goal Javier Vincent MS, RD/LD Ascom [phone] R SALES ASSESSOR * Tereza Mcpherson MD - 05/24/2024 3:29 [...] Full Tereza Mcpherson MD 05/24/2024 3:32 PM R SALES ASSESSOR * Tom Bland - 05/24/2024 2:52 PM CST Rfid Specialist visited with patient just shortly after the manager social responsibility had been there with patient. Patient was distressed regarding future living situation. Patient wants to get home to be with their Mother and their cats. Patient is going to need some rehab and therapy to get back to walking and putting pressure on leg and left foot. Rfid Specialist offered a prayer with patient. Patient was emotional and discouraged at this time. After prayer Rfid Specialist blessed the patient and said they [...] Plan/Outcome Plan Will Remain Available if Requested R SALES ASSESSOR * Dexter Cotto OT - 05/24/2024 2:01 [...] Ulcer of left foot with other severity ([facility]) 2. CHRISTIE (acute kidney injury) ([facility]) 3. Left foot infection 4. Diagnosis unknown [...] Mobility: Bed Mobility: Supine to Sit: Modified [place] Sit to Supine: Stand By Assist;Requires Verbal [...] as the discharge summary. YURIDIA RenteriaR/Steffi [phone] R SALES ASSESSOR * Alma Rosa Barclay, PT - 05/24/2024 [...] walker. Bed Mobility: Supine to Sit: Modified [place] Sit to Supine: Activity Does Not Occur [...] serves as the discharge summary. Pastora PT [phone] R SALES ASSESSOR * Obioma, Jameshia, RN - 05/24/2024 12:40 PM CST Care Coordination Progress Note Expected Discharge Date: 05/25/2024 Discharge Plan: TBD pt verbalize he wants to go home. Team recommendations are inpatient rehabilitation Per AR liaison Anca P2P request voicemail: [phone] Deadline: 5 calendar days from receipt of [...] Extended Emergency Contact Information Primary Emergency Contact: NASREENERICCLARA Relation: Mother Secondary Emergency Contact: unknown(friend/pharmacist)Monse Mobile Relation: None Transportation at Discharge: (cab or ambulance): READMISSION RISK SCORE is 13 at 12:40 PM 05/24/2024.: Name: Christel Barcenas RN Case Manager R SALES ASSESSOR * Latanya Sims PLUMBING ASSEMBLER - 05/24/2024 11:41 AM CST Social Work Progress Note Discharge Plan Disposition: TBD. [facility]P in order to determine for him to go to [place] or not. Team updated. P2P call at [phone]. Anca/ERIC updated on him being partial WB LLE with boot and walker. We will wait for PT note and thenhave doctor call for P2P. Deadline: 5 calendar days from receipt of denial which was received at 436pm on 05/23 PICC line placed this morning so PT cannot see him post 4 hours of line placement. Will try and seehim this afternoon. DIPIKA called [place] insurance [phone]. Found out that he DOES have a CM named Sally. The rep Vixarhe phone with me sent Sally an email with my information so Sally can reach out to me re: d/c assistance. Transportation: ambulance. [place] [employer]. Anticipated Discharge Date: 05/25/2024 Contacts: Extended [...] the antibiotics can be changed if needed. DIPIKA will call his insurance to find out if he has a CM thru [place]. He stated he does, but he cannot recall her name. Maybe she can assist with d/c. I encouraged him to work with PT when they come in and give 110% so we can send to his insurance and try to get them to approve AR. He does NOT want LTC. Comments: Name/Phone number: Latanya Sims LCSW , FRESH WORK WRAPPER LAYER, MPH Extensions: [phone] or [phone] R SALES ASSESSOR * Rio Schmitz RN - 05/24/2024 11:35 [...] integrity remains intact Description: INTERVENTIONS: Outcome: Progressing R SALES ASSESSOR * Ursula Grider RN - 05/24/2024 11:30 AM CST Images from the original note were not included. Wound/a auxiliary: Consultation for wound/skin care recommendations. Electronic record reviewed. Bedside assessment completed. According to physician's documented H&P upon admission Chief Complaint Foot pain History of Present Ilness 43yo M noncompliant Pt is a transfer from [facility]. Pt preseneted with LLE wound. He [...] 2. Elevate LLE 3. Optimize Nutrition- Clinical Roll Hauler Consult 4. DM Management- Tight Glucose Control [...] foam Additional Treatment Mepitel in wound base R SALES ASSESSOR * Alma Rosa Barclay, PT - 05/24/2024 11:13 AM CST Attempted to see patient for physical therapy. Unable to complete visit due to patient has PICC line placed at 10:30- he is NWB R UE post procedure. PT contacted vascular surgery for specific orders when patient can resume WB R UE on ww. Pastora PT [phone] R SALES ASSESSOR * Anca Vines RN - 05/24/2024 9:19 AM CST [facility] rehab update: [facility] has denied pt for rehab P2P request voicemail: [phone] Deadline: 5 calendar days from receipt of denial which was received at 436pm on 05/23 Rationale- does not meet their criteria (does not have medically intensive condition that requires intensive rehab) AR has notified team. Thank you for referral, Anca Vines RN, BSN, [place] Clinical Liaison [facility] cell: [phone] R SALES ASSESSOR * Hattie Liao MD - 05/24/2024 9:07 AM CST Infectious Diseases Consult Note Patient's Primary Care Physician: Nguyễn Bingham MD Reason for Consultation: foot ulcer Referring Physcian: No admitting provider for patient encounter. Name: Rene Hytat Age: [age] year old 10 Chief Complaint/History [...] results for input(s): CDIFFTOXINAB in the last 35207 hours. No results for input(s): SEDRATE in the last 22776 hours. No results for input(s): CRP in the last 55023 hours. Recent Labs Component Name 05/14/24 0403 [...] CBC, CMP, UA, sed rate. Fax results [phone] Discussed with manager social responsibility Hattie Liao MD R SALES ASSESSOR * Manpreet Stuart MD - 05/23/2024 3:17 [...] 146/86 Pulse: 103 102 98 99 Resp: Temp: 98.5 ??F (36.9 ??C) 99.7 ??F [...] Name 05/23/24 0333 05/22/24 0309 05/21/24 0303 SODIUM 136 136 138 POTASSIUM 5.3* 4.7 5.2* CHLORIDE 109* 108* 110* CO2 BUN 28* 28* 29* CREATININE 1.47* 1.38* [...] (Diabetic Use) oral gel, Oral, PRN HYDROcodone-acetaminophen ([place]) 5-325 MG tablet 1 tablet, Oral, q4h [...] # BPH, POA == Continue Flomax Obesity -Roll Hauler following WEST -CPAP at night DVT prophylaxis :Heparin sq Dispo: AR. Manpreet Stuart M.D [facility]. Internal Medicine R SALES ASSESSOR * Abby Quinn DPM - 05/23/2024 2:38 [...] Pulse: 103 102 98 99 Resp: 16 17 17 Temp: 98.5 ??F (36.9 [...] (Diabetic Use) oral gel, Oral, PRN HYDROcodone-acetaminophen ([place]) 5-325 MG tablet 1 tablet, Oral, q4h [...] results for input(s): INR in the last 11072 hours. No results for input(s): PT in the last 59559 hours. No results for input(s): PTT in the last 03423 hours. GENERAL: Conversant; NAD PSYCHE: Alert and [...] Labs reviewed - ID/ IM to determine detention Antibiotic therapy. S/P Surgical Debridement of left [...] is at high risk for limb loss. R SALES ASSESSOR * Dexter Cotto OT - 05/23/2024 2:15 [...] updated activity orders. Thank you for the referralDexter OTR/Steffi [phone] 05/23/2024 R SALES ASSESSOR * Christel Barcenas RN - 05/23/2024 1:51 [...] 05/23/2024.: Name: Christel Barcenas RN Case Manager R SALES ASSESSOR * Katerina Weaver, DO - 05/23/2024 10:46 AM CST Renal [...] 144/84 Pulse: 81 103 102 98 Resp: 18 16 16 17 Temp: 98.6 ??F (37 ??C) 98.5 ??F [...] Name 05/23/24 0333 05/22/24 0309 05/21/24 0303 SODIUM 136 136 138 POTASSIUM 5.3* 4.7 5.2* CHLORIDE 109* 108* 110* CO2 24 BUN 28* 28* 29* CREATININE 1.47* 1.38* 1.48* GLUCOSE 174* 153* 179* CALCIUM 8.8 8.6 8.8 No results for input(s): MAGMGDL in the last 82070 hours. Recent Labs Component Name 05/23/24 0333 [...] (Diabetic Use) oral gel, Oral, PRN HYDROcodone-acetaminophen ([place]) 5-325 MG tablet 1 tablet, Oral, q4h [...] current regimen Discussed with Primary Team Katerina Weaevr DO Office:[phone] Exchange: R SALES ASSESSOR * Alma Rosa Barclay, PT - 05/23/2024 10:41 AM CST PT deferred treatment this am. Physician orders/ activity orders 05/22/2024> Patient should be complete bed rest with bathroom privileges. Physician/RN notified. PT will defer therapy pending updated activity orders. Thank you Pastora PT 7958 R SALES ASSESSOR * Hattie Liao MD - 05/23/2024 10:04 [...] 144/84 Pulse: 81 103 102 98 Resp: 18 16 Temp: 98.6 ??F (37 ??C) 98.5 [...] Name 05/23/24 0333 05/22/24 0309 05/21/24 0303 SODIUM 136 136 138 POTASSIUM 5.3* 4.7 5.2* CHLORIDE 109* 108* 110* CO2 BUN 28* 28* 29* CREATININE 1.47* 1.38* [...] results for input(s): CDIFFTOXINAB in the last 15764 hours. No results for input(s): SEDRATE in the last 25095 hours. No results for input(s): CRP in the last 27723 hours. Recent Labs Component Name 05/14/24 0403 [...] Messaged with primary team Hattie Liao MD R SALES ASSESSOR * Latanya Sims, [facility] - 05/23/2024 9:06 AM CST Social Work Progress Note Discharge Plan Disposition: DIPIKA f/u with Anca/JENNIFER REYES. [place] insurance auth submitted on 05/18/24; however, Said there was a delay because the insurance listed on the face sheet stated commercial and he doesn't have commercial. Yes, he has a managed [place] medicaid plan; however, all of our face [...] her know that [place] [facility]. Jolly said that [facility] is currently full today (05/23/24). I let her know that our [place] is apparently following him as first choice and SNF then back up. She said that they would not need a SNF auth from [place]. I let her know that I do have a [place] SNF auth fax number I was given in the past? Per Jolly, [place] pays the same whether there's an auth [...] as well. Goal is d/c to [place] tomorrow,Tue 05/24/24. 3:48pm: still no lifted bedrest orders so PT/OT can work with patient. DIPIKA updated team; along with Anca/ERIC. Transportation: Transportation at discharge: (cab or ambulance) Anticipated Discharge Date: 05/25/2024 Contacts: Extended Emergency Contact Information Primary Emergency Contact: CLARA HYATT Relation: Mother Comments: Name/Phone number: Latanya Sims LCSW , FRESH WORK WRAPPER LAYER, MPH Extensions: [phone] R SALES ASSESSOR * Josephine Nation RN - 05/22/2024 11:26 [...] A while adhering to precautions Outcome: Progressing R SALES ASSESSOR * José Luis Cuevas DPM - 05/22/2024 6:00 PM CST Admit [...] Max:98.6 ??F (37 ??C) Filed Wts: 05/13/24 3073 Weight: (!) 183.9 kg (405 lb 6.4 [...] (Diabetic Use) oral gel, Oral, PRN HYDROcodone-acetaminophen ([place]) 5-325 MG tablet 1 tablet, Oral, q4h [...] results for input(s): INR in the last 29945 hours. No results for input(s): PT in the last 92575 hours. No results for input(s): PTT in the last 72483 hours. GENERAL: Conversant; NAD PSYCHE: Alert and [...] is at high risk for limb loss. R SALES ASSESSOR * Gisela Rodríguez, PT - 05/22/2024 10:34 [...] alert Bed Mobility: Supine to Sit: Modified [place] Sit to Supine: Activity Does Not Occur [...] note serves as the discharge summary. Gisela Rodríguez PT, DPT R SALES ASSESSOR * Mignon Alvarez LPN - 05/22/2024 9:34 [...] integrity remains intact Description: INTERVENTIONS: Outcome: Progressing R SALES ASSESSOR * Luis Alfredo Cisneros MD - 05/22/2024 [...] 284 300 Recent Labs Component Name 05/22/24 03005/21/24 0303 05/20/24 030 SODIUM 136 138 136 POTASSIUM 4.7 5.2* 4.8 CHLORIDE 108* 110* 109* CO2 BUN 28* 29* 33* CREATININE 1.38* 1.48* 1.44* GLUCOSE 153* 179* 167* CALCIUM 8.6 8.8 8.6 Recent Labs Component Name 05/22/24 0309 05/21/24 0303 05/20/24 03005/14/24 0403 09/17/23 1247 ALBUMIN 1.8* 1.7* 1.7* - - ALKPHOS - - - - 84 ALT - - - - 11 AST - - - - 12 - = values in this interval not displayed. No results for input(s): CDIFFTOXINAB in the last 88798 hours. No results for input(s): SEDRATE in the last 50169 hours. No results for input(s): CRP in the last 12370 hours. Recent Labs Component Name 05/14/24 0403 [...] after last surgery Luis Alfredo Cisneros MD R SALES ASSESSOR * Tamara Gordon OT - 05/22/2024 9:28 AM CST Occupational [...] Mobility: Bed Mobility: Supine to Sit: Modified [place] Sit to Supine: Activity Does Not Occur [...] - Right Upper Extremity: Within Functional Limits Planning Division Superintendent Strength:Planning Division Superintendent Strength - Right Upper Extremity: WFL LUE Assessment: AROM - Left Upper Extremity: Within Functional Limits Strength - Left Upper Extremity: Within Functional Limits Planning Division Superintendent Strength:Planning Division Superintendent Strength - Left Upper Extremity: WFL: Activity [...] as the discharge summary. YURIDIA Dunham [id number] R SALES ASSESSOR * Manpreet Stuart MD - 05/22/2024 8:47 [...] (Diabetic Use) oral gel, Oral, PRN HYDROcodone-acetaminophen ([place]) 5-325 MG tablet 1 tablet, Oral, q4h [...] # BPH, POA == Continue Flomax Obesity -Roll Hauler following WEST -CPAP at night DVT prophylaxis :Heparin sq Dispo: AR. VS SNF Manpreet Stuart M.D [facility]. Internal Medicine R SALES ASSESSOR * Deanna Carmona RN - 05/22/2024 12:54 [...] membranes remain intact Description: INTERVENTIONS: Outcome: Progressing R SALES ASSESSOR * Bravo Alvares DPM - 05/21/2024 12:52 [...] am. The wound has been treated with Cefepime,and metronidazole, 05/21/24: seen at bedside today, NAEO [...] Max:99.1 ??F (37.3 ??C) Filed Wts: 05/13/24 5796 Weight: (!) 183.9 kg (405 lb 6.4 [...] (Diabetic Use) oral gel, Oral, PRN HYDROcodone-acetaminophen ([place]) 5-325 MG tablet 1 tablet, Oral, q4h [...] results for input(s): INR in the last 77613 hours. No results for input(s): PT in the last 92254 hours. No results for input(s): PTT in the last 06113 hours. GENERAL: Conversant; NAD PSYCHE: Alert and [...] is at high risk for limb loss. R SALES ASSESSOR * Mignon Alvarez LPN - 05/21/2024 9:16 [...] integrity remains intact Description: INTERVENTIONS: Outcome: Progressing R SALES ASSESSOR * Katerina Weaver DO - 05/21/2024 9:03 [...] are negative Physical Examination: Vitals: 05/20/24 1802 05/20/24200205/21/24 0040 05/21/24 0407 [...] labs: Recent Labs Component Name 05/18/24 0338 05/17/2446 05/16/24308 WBC 14.5* 15.5* 21.7* HGB 7.7* 7.1* 7.3* HCT 24.7* 23.2* 23.6* PLTCOUNT 330 284 300 Recent Labs Component Name 05/21/2430205/20/249 05/19/24 021 SODIUM 138 136 136 POTASSIUM 5.2* 4.8 5.2* CHLORIDE 110* 109* 110* CO2 24 23 20* BUN 29* 33* 36* CREATININE 1.48* 1.44* 1.58* GLUCOSE 179* 167* 190* CALCIUM 8.8 8.6 8.6 No results for input(s): MAGMGDL in the last 40308 hours. Recent Labs Component Name 05/21/2430205/20/2430805/19/24215 PHOS 4.2 3.3 3.4 Glucose Bedside (mg/dL): [...] (Diabetic Use) oral gel, Oral, PRN HYDROcodone-acetaminophen ([place]) 5-325 MG tablet 1 tablet, Oral, q4h [...] Discussed with Primary Team Katerina Weaver DO Office:[phone] Exchange: R SALES ASSESSOR * Manpreet Stuart MD - 05/21/2024 8:35 AM CST Progress Note Admit Date: 05/13/2024 4:58 PM Hospital Day: 8 Clinical Course 43 y/o WM with h/o Morbid obesity, DM, Depression, GERD, BPH who was transferred from OSH 2/ infected L foot ulcer and being managed [...] (Diabetic Use) oral gel, Oral, PRN HYDROcodone-acetaminophen ([place]) 5-325 MG tablet 1 tablet, Oral, q4h [...] # BPH, POA == Continue Flomax Obesity -Roll Hauler following WEST -CPAP at night DVT prophylaxis :Heparin sq Dispo: AR. VS SNF Manpreet Stuart M.D [facility]. Internal Medicine R SALES ASSESSOR * James Link RCP - 05/21/2024 5:05 AM CST PT refused CPAP tonight. Told RT he would call if changes his mind. States he feels it is too much pressure R SALES ASSESSOR * Dexter Cotto OT - 05/20/2024 2:34 PM CST Attempted to see pt for OT follow-up; currently [place] at DEBRIDEMENT FOOT WOUND WITH POSSIBLE GRAFT-LEFT (Foot) . Will attempt to see pt at a later time/date. Thank you, YURIDIA RenteriaR/L [phone] 05/20/2024 R SALES ASSESSOR * Mignon Alvarez LPN - 05/20/2024 2:07 [...] integrity remains intact Description: INTERVENTIONS: Outcome: Progressing R SALES ASSESSOR * Manpreet Stuart MD - 05/20/2024 1:16 [...] (Diabetic Use) oral gel, Oral, PRN HYDROcodone-acetaminophen ([place]) 5-325 MG tablet 1 tablet, Oral, q4h [...] # BPH, POA == Continue Flomax Obesity -Roll Hauler following WEST -CPAP at night DVT prophylaxis :Lovenox on hold for procedure Dispo: AR. VS SNF Manpreet Stuart M.D [facility]. Internal Medicine R SALES ASSESSOR * Alma Rosa Barclay, PT - 05/20/2024 12:16 PM CST Attempted to see patient for physical therapy. Unable to complete visit due to patient declined. Reports he is scheduled for procedure- L LE today and does not feel up to PT at this time. PT will attempt to see patient at a later date. Pastora PT [phone] R SALES ASSESSOR * Christel Barcenas RN - 05/20/2024 9:23 [...] 05/20/2024.: Name: Christel Barcenas RN Case Manager R SALES ASSESSOR * Hattie Liao MD - 05/20/2024 9:17 [...] 284 300 Recent Labs Component Name 05/20/24 03005/19/246 05/18/24 033 SODIUM 136 136 136 POTASSIUM 4.8 5.2* [...] results for input(s): CDIFFTOXINAB in the last 00831 hours. No results for input(s): SEDRATE in the last 02324 hours. No results for input(s): CRP in the last 07256 hours. Recent Labs Component Name 05/14/24 0403 [...] havebeen missed upon review. Hattie Liao MD R SALES ASSESSOR * Sohan Ramirez, [facility] - 05/20/2024 9:11 AM CST New Facility Referral Follow Up Social Work Daily Progress Thursday Level of Care (SNF/Medicaid NH/Rehab/Mover Helper Care/LTACH): AR vs SNF DC Barrier: Plan [...] Selected Services Address Phone Fax Patient Preferred [facility] Accepted -- [address] [place] [id number] -- [facility] Accepted -- [address] [facility] [employer] [address] -- Payer/Plan Subscriber Name Rel Member # Group # [facility] * RENE HYATT [id number] [address] Monitoring of facility responses: 05/18/2024 11:21 AM SW spoke with Admission Jolly ([phone]); beds open only at [place] locations. They can only do Q12 for IV ABX; Extended Emergency Contact Information Primary Emergency Contact: CLARA HYATT Relation: Mother Comments/changes: Social Work Name: Sohan Ramirez FRESH WORK WRAPPER LAYER, FIRST MATE [facility] Phone: Desk: [phone]; Ascom: [phone] R SALES ASSESSOR * Anca Vines RN - 05/20/2024 8:59 AM CST [facility] AR rehab update: AR is awaiting ins determination. AR will update once notified. Thank you for referral, Anca Vines RN, BSN, [place] Clinical Liaison [facility] cell: [phone] R SALES ASSESSOR * Kang Sanders RN - 05/20/2024 2:46 [...] membranes remain intact Description: INTERVENTIONS: Outcome: Progressing R SALES ASSESSOR * Abby Quinn DPM - 05/19/2024 6:04 [...] (Diabetic Use) oral gel, Oral, PRN HYDROcodone-acetaminophen ([place]) 5-325 MG tablet 1 tablet, Oral, q4h [...] results for input(s): INR in the last 37142 hours. No results for input(s): PT in the last 04347 hours. No results for input(s): PTT in the last 12541 hours. GENERAL: Conversant; NAD PSYCHE: Alert and [...] Thank you for asking [facility], [facility], Dr. Abby Quinn to participate in the care of your patient. Please call [phone] (Office), (Exchange), (Cell #, Call/ Text) with any questions or concerns. R SALES ASSESSOR * Dexter Cotto OT - 05/19/2024 4:22 [...] gains as a result of skilled therapy [facility] Daily Activity Raw Score:: 14 ADMIT: 1. Ulcer of left foot with other severity (HCC) 2. CHRISTIE (acute kidney injury) ([facility]) 3. Left foot infection PPE worn by [...] initially attempted with bariatric WW, transitioned to YARD SPECIALIST to provide tactile/physical cues and to maintain NWB LLE. Mobility: Distance Ambulated (ft): (NWB LLE) ADL Tasks: Based on observation and clinical judgement Feeding: Complete [place] Oral Facial Hygiene: Set-up Bathing: Maximal Assistance [...] this serves as the discharge summary. YURIDIA RenteriaR/L [id number] R SALES ASSESSOR * Manpreet Stuart MD - 05/19/2024 3:22 PM CST Progress Note Admit Date: 05/13/2024 4:58 PM Hospital Day: 6 Clinical Course 43 y/o WM with h/o Morbid obesity, DM, Depression, GERD, BPH who was transferred from [facility] 2/2 infected L foot ulcer and [...] (Diabetic Use) oral gel, Oral, PRN HYDROcodone-acetaminophen ([place]) 5-325 MG tablet 1 tablet, Oral, q4h [...] # BPH, POA == Continue Flomax Obesity -Roll Hauler following WEST -CPAP at night DVT prophylaxis :Lovenox Dispo: [place]. Manpreet Stuart M.D [facility] [place]. Internal Medicine R SALES ASSESSOR * Alma Rosa Barclay, PT - 05/19/2024 [...] as the discharge summary. [facility] [id number] R SALES ASSESSOR * Hattie Liao MD - 05/19/2024 2:35 [...] Pulse: 87 88 86 86 Resp: 16 18 17 Temp: 99.2 ??F (37.3 [...] 8.1* 7.9* Recent Labs Component Name 05/19/24 0216 05/18/24 0338 05/16/24 0309 05/14/24 0403 09/17/23 1247 ALBUMIN 1.6* 1.5* 1.4* - - ALKPHOS - - - - 84 ALT - - - - 11 AST - - - - 12 - = values in this interval not displayed. No results for input(s): CDIFFTOXINAB in the last 90734 hours. No results for input(s): SEDRATE in the last 02511 hours. No results for input(s): CRP in the last 65170 hours. Recent Labs Component Name 05/14/24 0403 [...] antibiotics Discussed with nursing Hattie Liao MD R SALES ASSESSOR * Mary Roach, RD/LD - 05/19/2024 1:07 [...] (05/19/24954) Skin/Wound: LLE wound Estimated Needs: KCAL: 6405-0183 kcals (11-14 kcal/kg of ABW) Protein (g): [...] results for input(s): MAGNESIUM in the last 05501 hours. Recent Labs Component Name 05/18/24 0338 [...] (Diabetic Use) oral gel, Oral, PRN HYDROcodone-acetaminophen ([place]) 5-325 MG tablet 1 tablet, Oral, q4h [...] RD/CAYETANO, PhD 05/19/2024 1:12 PM Ascom [id number] R SALES ASSESSOR * Katerina Weaver DO - 05/19/2024 12:56 [...] 3; Laboratory Data Recent Labs Component Name 05/18/2433705/17/24 0946 05/16/24 0309 WBC 14.5* 15.5* 21.7* HGB 7.7* 7.1* 7.3* HCT 24.7* 23.2* 23.6* PLTCOUNT 330 284 300 Recent Labs Component Name 05/19/2421505/18/2433705/17/24 0500 SODIUM 136 136 135* POTASSIUM 5.2* 4.7 4.2 CHLORIDE 110* 111* 107 CO2 20* 21* 20* BUN 36* 35* 37* CREATININE 1.58* 1.62* 1.83* GLUCOSE 190* 233* 207* CALCIUM 8.6 8.1* 7.9* No results for input(s): MAGMGDL in the last 29387 hours. Recent Labs Component Name 05/19/2421505/18/2433705/16/24 030 PHOS 3.4 3.3 4.5 Glucose Bedside (mg/dL): [...] taking: Reported on 10/08/2023) Cholecalciferol 1.25 MG (97162 UT) Take 50,000 Units by mouth Two [...] mg subcutaneously every 7 days TRUEplus Pen [place] 31G X 5 MM needle Trulicity 1.5 MG/0.5ML injection (Patient not taking: Reported on 05/18/2024) vitamin D, ergocalciferol, (Drisdol) 1.25 MG (94712 UT) capsule Take 1 (one) capsule by mouth every7 days Takes on thursday vitamin D, ergocalciferol, (Drisdol) 1.25 MG (06541 UT) capsule (Patient not taking: Reported on [...] (Diabetic Use) oral gel, Oral, PRN HYDROcodone-acetaminophen ([place]) 5-325 MG tablet 1 tablet, Oral, q4h [...] Dr Meg Richardson MD PGY-3 Internal Medicine [facility] R SALES ASSESSOR * Kang Sanders RN - 05/19/2024 12:09 [...] membranes remain intact Description: INTERVENTIONS: Outcome: Progressing R SALES ASSESSOR * Abby Quinn DPM - 05/18/2024 5:32 [...] (Diabetic Use) oral gel, Oral, PRN HYDROcodone-acetaminophen ([place]) 5-325 MG tablet 1 tablet, Oral, q4h [...] results for input(s): INR in the last 34747 hours. No results for input(s): PT in the last 98700 hours. No results for input(s): PTT in the last 31768 hours. GENERAL: Conversant; NAD PSYCHE: Alert and [...] Thank you for asking [facility], Dr. Abby Quinn to participate in the care of your patient. Please call [phone] (Office), (Exchange), (Cell #, Call/ Text) with any questions or concerns. R SALES ASSESSOR * Alma Rosa Barclay, PT - 05/18/2024 [...] as the discharge summary. [facility] PT 7958 R SALES ASSESSOR * DutyFredy - 05/18/2024 2:05 PM CST Occupational Therapy [...] - Dynamic: Fair ADL Tasks: Feeding: Complete [place] Oral Facial Hygiene: Set-up Bathing: Maximal Assistance [...] as the discharge summary. Fredy Choi, OT/S R SALES ASSESSOR * Manpreet Stuart MD - 05/18/2024 1:17 PM CST Progress Note Admit Date: 05/13/2024 4:58 PM Hospital Day: 5 Clinical Course 43 y/o WM with h/o Morbid obesity, DM, Depression, GERD, BPH who was transferred from [facility] 2/2 infected L foot ulcer and [...] 132/81 Pulse: 88 86 87 88 Resp: 18 18 Temp: 99.1 ??F (37.3 ??C) 99.1 ??F [...] (Diabetic Use) oral gel, Oral, PRN HYDROcodone-acetaminophen ([place]) 5-325 MG tablet 1 tablet, Oral, q4h [...] # BPH, POA == Continue Flomax Obesity -Roll Hauler following DVT prophylaxis :Lovenox Dispo: SNF Manpreet Stuart M.D [facility] [place]. Internal Medicine R SALES ASSESSOR * Kimberly Dietz V., PharmD - 05/18/2024 [...] Prep) PADS Yes No Cholecalciferol 1.25 MG (01847 UT) Not Taking Yes No Sig: Take 50,000 Units by mouth Two times a week Patient not taking: Reported on 05/18/2024 Lancets (ONETOUCH DELICA PLUS 33G EXTRA FINE LANCET) Yes No Lantus SoloStar pen Yes No Sig: Inject 20 (twenty) Units subcutaneously at bedtime TRUEplus Pen [place] 31G X 5 MM needle Yes No [...] days vitamin D, ergocalciferol, (Drisdol) 1.25 MG (10141 UT) capsule Not Taking Yes No Patient not taking: Reported on 05/18/2024 vitamin D, ergocalciferol, (Drisdol) 1.25 MG (21887 UT) capsule Yes Yes Sig: Take 1 (one) capsule by mouth every 7 days Takes on thursday Facility-Administered Medications: None ASSESSMENT AND PLAN The EDUCATION REPORTER medication list has been updated and reflects the changes noted above. Kimberly Dietz, PharmD 05/18/2024 R SALES ASSESSOR * Katerina Weaver DO - 05/18/2024 11:32 AM CST I have seen and examined the patient with the resident and I agree with the findings and plan of care as documented by the resident. In addition: Can discontinue fluids today and monitor improvement of renal function. Date of Service: 05/18/2024 Katerina Weaver, DO Renal Follow-Up Note Name: Rene Hyatt [...] 132/81 Pulse: 88 86 87 88 Resp: 20 16 18 18 Temp: 99.1 ??F (37.3 ??C) 99.1 ??F [...] results for input(s): MAGMGDL in the last 52724 hours. Recent Labs Component Name 05/18/24 0338 [...] taking: Reported on 10/08/2023) Cholecalciferol 1.25 MG (01073 UT) Take 50,000 Units by mouth Two [...] a meal. 90 capsule 4 TRUEplus Pen [place] 31G X 5 MM needle Trulicity 1.5 MG/0.5ML injection vitamin D, ergocalciferol, (Drisdol) 1.25 MG (67352 UT) capsule Intake/Output Summary (Last 24 hours) [...] (Diabetic Use) oral gel, Oral, PRN HYDROcodone-acetaminophen ([place]) 5-325 MG tablet 1 tablet, Oral, q4h [...] Dr Meg Richardson MD PGY-3 Internal Medicine [facility] R SALES ASSESSOR * Josephine Nation RN - 05/18/2024 11:25 [...] membranes remain intact Description: INTERVENTIONS: Outcome: Progressing R SALES ASSESSOR * Sohan Ramirez LMSW - 05/18/2024 11:21 AM CST New Facility Referral Follow Up Social Work Daily Progress Level of Care (SNF/Medicaid NH/Rehab/Correction Care/LTACH): AR vs SNF DC Barrier: Cannot do Q8 MUST be Q12 for IV ABX Poidatry review wound on Needs Picc line Special Needs: cefepime (Maxipime) 2,000 mg in 0.9% NaCl IV 50 mL IVPB Q8 (NEEDS TO BE CHANGED TO Q12) Service Provider Request Status Selected Services Address Phone Fax Patient Preferred [facility] Accepted -- [address] [place] [id number] [phone] -- [facility] -- [address] [facility] [id number] -- Payer/Plan Subscriber Name Rel Member # Group # [facility] * RENE HYATT [id number] [address] Monitoring of facility responses: 05/18/2024 11:21 AM SW spoke with Admission Jolly ([phone]); beds open only at [facility]. They can only do Q12 for IV ABX; Extended Emergency Contact Information Primary Emergency Contact: CLARA HYATT [place] Relation: Mother Comments/changes: Social Work Name: Sohan LINDSEY, DONNA [facility] Phone: Desk: [phone]; Ascom: [phone] R SALES ASSESSOR * Christel Barcenas RN - 05/18/2024 11:09 AM CST Care Coordination Progress Note Expected Discharge Date: 05/20/2024 Discharge Plan: [place] vs SNF for back up plan. pt has 2 accepting facilities in [place]. SW followingfor placement if [place] is denied. Barriers: debridement of L foot ulcer 05/15. podiatry following and final plan for further intervention? ID following and final plan for IVABT, if termite control service representative needs PICC line placement. Family Support (Name and Phone): Extended Emergency Contact Information Primary Emergency Contact: CLARA HYATT Relation: Mother Transportation at Discharge: (cab or ambulance): READMISSION RISK SCORE is 14 at 11:33 AM 05/18/2024.: Name: Christel Barcenas RN Case Manager R SALES ASSESSOR * Hattie Liao MD - 05/18/2024 10:41 [...] results for input(s): CDIFFTOXINAB in the last 40230 hours. No results for input(s): SEDRATE in the last 05288 hours. No results for input(s): CRP in the last 50707 hours. Recent Labs Component Name 05/14/24 0403 [...] 6 weeks of antibiotics Hattie Liao MD R SALES ASSESSOR * Kang Sanders RN - 05/18/2024 1:16 [...] membranes remain intact Description: INTERVENTIONS: Outcome: Progressing R SALES ASSESSOR * Abby Quinn DPM - 05/17/2024 8:12 [...] Max:99.4 ??F (37.4 ??C) Filed Wts: 05/13/24 2213 Weight: (!) [...] (Diabetic Use) oral gel, Oral, PRN HYDROcodone-acetaminophen ([place]) 5-325 MG tablet 1 tablet, Oral, q4h [...] results for input(s): INR in the last 27353 hours. No results for input(s): PT in the last 63378 hours. No results for input(s): PTT in the last 69244 hours. GENERAL: Conversant; NAD PSYCHE: Alert and [...] the care of your patient. Please call [phone] (Office), (Exchange), (Cell #, Call/ Text) with any questions or concerns. R SALES ASSESSOR * Alma Rosa Barclay, PT - 05/17/2024 [...] Ulcer of left foot with other severity ([facility]) (primary encounter diagnosis) (N17.9) CHRISTIE (acute kidney injury) ([facility]) (L08.9) Left foot infection SUBJECTIVE: I was walking in the house without a walker or cane. I will do whatever I can to go home. Home Situation: Home Situation Type of Residence: Private Residence Living arrangement: Family Members (Lives with mother, who is currently in [facility]) Home Structure: One Story;Basement Bathroom : Tub/Shower [...] as the discharge summary. [facility] PT 7958 R SALES ASSESSOR * Dexter Cotto, OT - 05/17/2024 2:05 [...] Ulcer of left foot with other severity ([facility]) 2. CHRISTIE (acute kidney injury) ([facility]) 3. Left foot infection PPE worn by staff: gloves Precautions: Fall Risk, NWB LLE, Lines SUBJECTIVE: I really want to keep my independence so that I can go back home Psychosocial: Patient Behaviors: (Calm, cooperative) Pt's goal for therapy: Regain functional independence. Occupational Profile/PLOF: Type of Residence: Private Residence Living arrangement: Family Members (Lives with mother, who is currently in [facility]) Home Structure: One Story;Basement Steps to Enter: [...] Strength - Right Upper Extremity: (grossly 3+/5) Planning Division Superintendent Strength: Planning Division Superintendent Strength - Right Upper Extremity: Able to actively grasp, decreased strength LUE Assessment: AROM - Left Upper Extremity: (~75% shoulder AROM) Strength - Left Upper Extremity: (grossly 3+/5) Planning Division Superintendent Strength: Planning Division Superintendent Strength - Left Upper Extremity: Able to actively grasp, decreased strength: Basic ADL's: Based on observation and clinical judgement Feeding: Complete [place] Oral Facial Hygiene: Set-up (Seated) Bathing: Moderate [...] as the discharge summary. RALEIGH Renteria/Steffi [phone] R SALES ASSESSOR * Latanya Sims, [facility] - 05/17/2024 11:56 AM CST Social Work Progress Note Discharge Plan Disposition: goal is SNF/[place]. PT and SW sent chat to podiatry [...] and IV antib (just pending PT/OT notes): [facility]. [address] [place] [address]. [place] [address]. -yes accepted [facility] [place]: [phone] (f) [phone]-[facility] [phone] (f) [phone] [facility]. DIPIKA reached out to [facility]: [phone] (f) [phone] Spoke with Katy in the business office. Yes, his mother is there. Private pay for 15 days. I explained she's probably going to need to be there longer since he needs to go to a SNF more than likely. She said they accept [facility] for LTC but not SNF. My understanding is that some [place] does cover SNF so I sent referrals to other places. She said that Clara is still able to communicate so if we needed to speak with her for some reason the staff there could help get her on a phone. We will keep them posted on his d/c. For SNF auth you will need to fax [place] at: [phone] DIPIKA checked referrals from earlier. Transportation: ambulance. [facility] [facility]. Anticipated Discharge Date: 05/17/2024 Contacts: Extended Emergency Contact Information Primary Emergency Contact: CLARA HYATT Relation: Mother *Mother cannot be contacted. She has MS and is respite at [facility]: [phone] (f) [phone] Comments: SW added on AVS, private duty info for him and for his mother, SSD info, VA assist for mom at home, and [place] local chapter for resources for mom at home. Name/Phone number: Latanya Sims LCSW , FRESH WORK WRAPPER LAYER, MPH Latanya Sims LCSW R SALES ASSESSOR * Katerina Weaver DO - 05/17/2024 11:42 [...] No issues with urine output. Exam: Vitals: 05/16/24 2032 05/16/24 2313 05/17/24 0412 [...] results for input(s): MAGMGDL in the last 69842 hours. Recent Labs Component Name 05/16/24 0309 [...] taking: Reported on 10/08/2023) Cholecalciferol 1.25 MG (64329 UT) Take 50,000 Units by mouth Two [...] a meal. 90 capsule 4 TRUEplus Pen [place] 31G X 5 MM needle Trulicity 1.5 MG/0.5ML injection vitamin D, ergocalciferol, (Drisdol) 1.25 MG (11087 UT) capsule Intake/Output Summary (Last 24 hours) [...] Dr Meg Richardson MD PGY-3 Internal Medicine [facility] R SALES ASSESSOR * Alma Rosa Barclay, PT - 05/17/2024 10:08 AM CST PT orders received. Current activity orders are patient bed bound with bathroom privileges- PT contacted Dr Quinn to clarify PT/OT and activity orders. PT/OT will initiate eval when orders and updated. Thank you [facility] 7958 R SALES ASSESSOR * Rio Schmitz, ARYAN - 05/17/2024 9:38 AM CST Problem: Fall Risk Goal: Fall risk and fall related injury risk are minimized (interventions related to the fall risk can be found in the flowsheet documentation) 05/17/2024936 by Rio Schmitz RN Outcome: Progressing [...] 05/16/20241955 by Rio Schmitz RN Outcome: Progressing R SALES ASSESSOR * Hattie Liao MD - 05/17/2024 9:11 [...] no rico/seizures Psych: no depression/anxiety Exam Vitals: 05/16/24203105/16/24 2313 05/17/24 0412 05/17/24 0754 [...] results for input(s): CDIFFTOXINAB in the last 10686 hours. No results for input(s): SEDRATE in the last 87843 hours. No results for input(s): CRP in the last 61304 hours. Recent Labs Component Name 05/14/24 0403 [...] and tight glycemic control Hattie Liao MD R SALES ASSESSOR * Manpreet Stuart MD - 05/17/2024 8:57 [...] on 05/15. Started on abx, ID & podiatry following. New Symptoms Patient has no new symptoms HDS. MRI negative for abscess Data Vitals: 05/16/24 2032 05/16/24 2313 05/17/24 0412 [...] # BPH, POA == Continue Flomax Obesity -Roll Hauler following DVT prophylaxis :Lovenox Dispo: home vs SNF Manpreet Stuart M.D [facility] [place]. Internal Medicine R SALES ASSESSOR * Rio Schmitz RN - 05/16/2024 7:56 [...] to engage in desired activity. Outcome: Progressing R SALES ASSESSOR * Abby Quinn DPM - 05/16/2024 7:11 [...] results for input(s): INR in the last 10391 hours. No results for input(s): PT in the last 99944 hours. No results for input(s): PTT in the last 97933 hours. GENERAL: Conversant; NAD PSYCHE: Alert and [...] seen Surgical Description: [facility] Collected: 05/15/24 16:34 Last Resulted: 05/15/24 [...] Thank you for asking [facility], Dr. Abby Quinn to participate in the care of your patient. Please call [phone] (Office), (Exchange), (Cell #, Call/ Text) with any questions or concerns. R SALES ASSESSOR * Zana Tolentino MD - 05/16/2024 11:18 AM CST Progress Note Admit Date: 05/13/2024 4:58 PM Hospital Day: 3 Clinical Course 43 y/o WM with h/o Morbid obesity, DM, Depression, GERD, BPH who was transferred [facility] 2/2 infected L foot ulcer. Initial BP [...] Lovenox D/w RN Zana Tolentino MD,MPH 05/16/2024 R SALES ASSESSOR * Dexter Cotto OT - 05/16/2024 9:38 AM CST OT order noted, chart review complete. Attempted to see pt for OT initial eval, however pt with bedrest orders. Will attempt to see pt at a later time/date for initial eval when appropriate. Thank you for the referral, RLAEIGH Renteria/Steffi [phone] 05/16/2024 R SALES ASSESSOR * Kim Wen, PharmD - 05/16/2024 9:30 [...] 030 Estimated creatinine clearance: 86.1 mL/min (A) R SALES ASSESSOR * Hattie Liao MD - 05/16/2024 9:23 [...] results for input(s): CDIFFTOXINAB in the last 11430 hours. No results for input(s): SEDRATE in the last 56523 hours. No results for input(s): CRP in the last 86319 hours. Recent Labs Component Name 05/14/24 0403 [...] and tight glycemic control Hattie Liao MD R SALES ASSESSOR * Alma Rosa Barclay, PT - 05/16/2024 9:20 AM CST Attempted to see patient for physical therapy. Unable to complete visit due to patient has bedrest orders. Will attempt to see patient at a later date. [facility] 7958 R SALES ASSESSOR * Emmanuelle Barragan RN - 05/16/2024 7:20 AM CST Wound RN consult placed on admission. Patient being managed by Podiatry. Wound Rn will defer to . Signing off. Reconsult if needed in the future. Emmanuelle Barragan RN 05/16/2024 7:21 AM R SALES ASSESSOR * Luis Daniel Starks RN - 05/15/2024 [...] Outcome: Progressing Note: Pain managed via MAR R SALES ASSESSOR * Esha Can RN - 05/15/2024 7:55 PM CST Care Coordination Initial Assessment Expected Discharge Date: 05/17/2024 Expected Discharge Disposition: Home or Self Care Transportation at Discharge: (cab or ambulance) Prior Level of Care: Home Prior to Admit Provider: New Provider-Dr. Teena Paulino Comments: PER PROVIDER-43 y/o WM with h/o Morbid obesity, DM, Depression, GERD, BPH who was transferred from [facility] 2/2 infected L foot ulcer. Initial BP 138/76, HR 91, Temp 100.3, lab work remarkable for WBC 22.3K, hb 8.2, Cr 1.31 , Xray showed Diffuse soft tissue swelling of the foot. Soft tissue gas within the hindfoot. Started on abx, ID & podiatry consulted Lives with: Family Members (Lives with mother, who is currently in [facility]) Physical Limitations: None Requires Assistance With: None Preferred Pharmacy: [email or web address] - [address] [facility] [id number] [address] [facility] [phone] READMISSION RISK SCORE is 14 at 7:55 PM 05/15/2024. Met with patient Family Support (name and phone): Extended Emergency Contact Information Primary Emergency Contact: CLARA HYATT [place] Relation: Mother Patient or internet sales representative requests care coordination reach out to family or caregiver listed above regarding discharge planning and at time of discharge? No Actual Level of Care/Dispostion Details Durable Medical Equipment Planning Equipment at Home: CPAP/BiPAP List DME pt. requires but does not have.: None Psychologist Clinical Referral: No Will continue to follow. For any questions or needs please contact: Pl Sql Programmer/Social Work Name/Phone number: Esha Can RN R SALES ASSESSOR * Lesa Rodríguez MD - 05/15/2024 4:09 [...] results for input(s): CDIFFTOXINAB in the last 32652 hours. No results for input(s): SEDRATE in the last 14414 hours. No results for input(s): CRP in the last 87509 hours. Recent Labs Component Name 05/14/24 0403 [...] and tight glycemic control Lesa Rodríguez MD R SALES ASSESSOR * Zana Tolentino MD - 05/15/2024 11:47 [...] Lovenox D/w RN Zana Tolentino MD,MPH 05/15/2024 R SALES ASSESSOR * Abby Quinn DPSadiq - 05/15/2024 8:24 AM CST Admit Date: [...] Max:102.2 ??F (39 ??C) Filed Wts: 05/13/24 7893 Weight: (!) 183.9 kg (405 lb 6.4 [...] results for input(s): INR in the last 98024 hours. No results for input(s): PT in the last 28941 hours. No results for input(s): PTT in the last 90125 hours. GENERAL: Conversant; NAD PSYCHE: Alert and [...] Thank you for asking [facility], Dr. Abby Quinn to participate in the care of your patient. Please call [phone] (Office), (Exchange), (Cell #, Call/ Text) with any questions or concerns. R SALES ASSESSOR * Tamara Gordon OT - 05/15/2024 7:50 AM CST Occupational Therapy OT orders received, chart review completed. Attempted to see for OT evaluation today, however Pt unavailable due to plan for I&D of L foot this AM. Will attempt to see Pt at a later time/date as appropriate, Pt will required WB and activity orders prior to OT evaluation. YURIDIA Dunham [id number] R SALES ASSESSOR * Dalila Cerda, PT - 05/15/2024 7:12 AM CST Attempted to see patient for physical therapy. Unable to complete visit due to pt with plan for I&D of L foot this AM. PT will require WB and activity orders prior to evaluation. Will attempt to see patient at a later date. AD RodriguezT [phone] R SALES ASSESSOR * Luis Daniel Starks RN - 05/14/2024 [...] Outcome: Progressing Note: Pain managed via MAR R SALES ASSESSOR * Monse Hernandez OT - 05/14/2024 1:04 PM CST Occupational Therapy Attempted to see Pt for OT initial eval at this time. Per chart review, awaiting podiatry consult, also need WB orders and activity orders prior to initiation of eval. Per PT note, has been contacted to add orders. Will re-attempt at a later time/date as schedule permits. Monse Roblero OTR/L [phone] R SALES ASSESSOR * Zana oTlentino MD - 05/14/2024 1:01 PM CST Progress Note Admit Date: 05/13/2024 4:58 PM Hospital Day: 1 Clinical Course 43 y/o WM with h/o Morbid obesity, DM, Depression, GERD, BPH who was transferred from [facility] 2/ infected L foot ulcer. Initial BP [...] Lovenox D/w RN Zana Tolentino MD,MPH 05/14/2024 R SALES ASSESSOR * Murali Live, PharmD - 05/14/2024 10:40 [...] adjust as needed. Molly Pablo, Pharm.D Ext [phone] ADDENDUM: Vancomycin peak level came back at [...] mcg/ml. Murali Live PharmD 05/15/2024 2:14 AM R SALES ASSESSOR * Mignon Alvarez LPN - 05/14/2024 10:01 AM CST Problem: Fall Risk Goal: Fall risk and fall related injury risk are minimized (interventions related to the fall risk can be found in the flowsheet documentation) Outcome: Progressing Problem: Pain/Discomfort Goal: Patient exhibits reduced pain/discomfort as evidenced by pain scores Outcome: Progressing Annamarie Chaves PT - 05/14/2024 8:48 AM CST PT orders noted. Pt has podiatry consult pending (will need weight bearing orders) and also needs activity orders. Message sent to Dr. Tolentino via [employer] secure chat. Will attempt again at a later date. MARIUSZ De Luna Ascom [phone] R SALES ASSESSOR documented in this encounter H&P Notes * Nicanor Richter MD - 05/13/2024 8:26 PM CST History and Physical - Hospitalist Date of Admission: 05/13/2024 Patient's Primary Care Physician: Nguyễn Bingham MD Name: Rene Hyatt Age: [age] year old Sex: male Chief Complaint Foot pain History of Present Ilness 43yo M noncompliant Pt is a transfer from [facility]. Pt preseneted with LLE wound. He [...] taking: Reported on 10/08/2023) Cholecalciferol 1.25 MG (93422 UT) Take 50,000 Units by mouth Two [...] a meal. 90 capsule 4 TRUEplus Pen [place] 31G X 5 MM needle Trulicity 1.5 MG/0.5ML injection vitamin D, ergocalciferol, (Drisdol) 1.25 MG (74555 UT) capsule No Known Allergies Review of [...] Lovenox. Nicanor Richter MD 05/13/2024 8:26 PM R SALES ASSESSOR documented in this encounter Consult Notes * Emmanuelle Barragan RN - 05/25/2024 1:01 PM CSTAssociated Order(s): IP CONSULT TO WOUND NURSE See wound and skin note dated 05/25/24. Daily wound/skin care to scrotum to be assumed by primary nursing staff. Wound nurse will not follow at this time. Reconsult if skin/wounds worsen. Emmanuelle Barragan RN 05/25/2024 1:01 PM R SALES ASSESSOR * Ursula Grider RN - 05/24/2024 11:30 AM CSTAssociated Order(s): IP CONSULT TO WOUND NURSE See Wound/Skin care note dated 05/24/24 Ursula Grider RN 05/24/2024 1:17 PM R SALES ASSESSOR * Wilfredo Carlton RN - 05/24/2024 10:23 AM CST Chart review [...] See Doc Flow sheets for further details. R SALES ASSESSOR * Javier Alcazar RD/CAYETANO - 05/23/2024 2:36 [...] Last 48 hours None Estimated Needs: KCAL: 6153-4486 kcals (11-14 kcal/kg of ABW) Protein (g): [...] nutrition guidelines. Javier Vincent MS, RD/LD Ascom 0711 R SALES ASSESSOR * Latanya Sims, PLUMBING ASSEMBLER - 05/23/2024 9:36 AM CSTAssociated Order(s): IP CONSULT TO DAYCARE DIRECTOR; IP CONSULT TO DAYCARE DIRECTOR SOCIAL WORK CONSULT NOTE Reason for Consult: 1. From RN negative pressure therapy/discharge planning. SW already following for this. 2. From RN for food resources. Discharge Plan Disposition: aiming for AR/[place] following. Needs to be cleared medically first and auth submitted for thru his [place] Medicaid. Back up is SNF/[place]. Transportation: [place] [employer]. Anticipated Discharge Date: TBD Emergency Contacts: Extended Emergency Contact Information Primary Emergency Contact: CLARA HYATT Relation: Mother Comments: SW added food voucher to AVS today. SW also sent a referral to [facility]. Thanks Latanya Sims LCSW 05/23/2024 9:38 AM Extensions: [phone] or [phone] R SALES ASSESSOR * Kaci Jenkins RD/LD - 05/21/2024 9:45 AM CSTAssociated Order(s): IP CONSULT TO NUTRITIONAL SERV Consult received in error. Pt is not currently ventilated. Kaci MULLER, [facility] 05/21/2024 9:46 AM Ascom 4720 R SALES ASSESSOR * Anca Vines RN - 05/18/2024 9:47 AM CSTAssociated Order(s): IP CONSULT TO PHYSICAL MED AND REHAB [facility] Rehab following. Will continue to follow for medical stability as well as ability to tolerate/participate in two therapies for possible admission acute rehab upon DC. UPDATE: ins auth was submitted. Thank you for the referral. Anca Vines, RN, BSN Clinical Liaison [facility] [phone] R SALES ASSESSOR Latanya Joiner LCSW - 05/16/2024 11:34 AM CSTAssociated Order(s): IP CONSULT TO DAYCARE DIRECTOR SOCIAL WORK CONSULT NOTE Reason for Consult: per MDR, May need [place] SNF vs [place] vs Home. Depends on what [place] covers. SW will contact to verify. 43 year old male. [place] insurance. Arrived at [facility] due to the following: noncompliant Pt is a transfer from [facility]. Pt preseneted with LLE wound. He has been transferred for Podiatry services. Pt has been admitted for further evaluation and treatment. Dx: infected diabetic left foot ulcer, ARF, DMII, HTN, Anemia, Anxiety, Depression, Diabetic neuropathy, GERD BPH, Obesity, weak and debilitated. Discharge Plan Disposition: TBD. Per MDR. Home vs SNF or AR if insurance covers. DIPIKA called [place] contact personand left a VM to see if his plan covers either AR or SNF. DIPIKA spoke with rep. They suggested just calling plan number. DIPIKA checked with a [facility] and they do accept [place] and [place] found that[place]F's as well. Some around his area would be: [facility] Transportation: ambulance thru [place] [employer]. Anticipated Discharge Date: TBD Emergency Contacts: Extended Emergency Contact Information Primary Emergency Contact: CLARA HYATT Relation: Mother *Room visit with patient. His mother, Clara, really is not able to be his emergency contact. She has advanced MS and he is her FT caregiver at home. Right now he said she's staying at [facility] and has been there the past [...] sister named Rosaline Worley who lives in [place]. Neither he nor his mother want anything [...] be eligible for some home [place] thru [place] [address]. His cell: [phone]. I asked if he has SSD he [...] resources on AVS for private duty in [place], [place] Society contact, SSD information,VA home care contact info for his mother. Latanya Sims LCSW 05/16/2024 12:24 PM Extensions: [phone] or [phone] R SALES ASSESSOR Shilpi Simms RN - 05/16/2024 11:32 AM CSTAssociated Order(s): [...] can dwell up to 30 days per brood station manager's recommendation. Change dressing prn or at least weekly. Shilpi Schmitt RN 05/16/2024 11:33 AM R SALES ASSESSOR Mary Duran, JR/CAYETANO - 05/16/2024 10:02 AM CSTAssociated Order(s): [...] Last 48 hours None Estimated Needs: KCAL: 3407-0152 kcals (11-14 kcal/kg of ABW) Protein (g): [...] RD/CAYETANO, PhD 05/16/2024 10:06 AM Ascom 4720 R SALES ASSESSOR * Katerina Weaver DO - 05/16/2024 9:00 [...] obesity, T2DM, and BPH who presented to [facility] for L foot ulcer for further evaluation. [...] taking: Reported on 10/08/2023) Cholecalciferol 1.25 MG (84890 UT) Take 50,000 Units by mouth Two [...] a meal. 90 capsule 4 TRUEplus Pen [place] 31G X 5 MM needle Trulicity 1.5 MG/0.5ML injection vitamin D, ergocalciferol, (Drisdol) 1.25 MG (69254 UT) capsule Current Medications-Reviewed and Documented below [...] results for input(s): MAGMGDL in the last 13658 hours. Assessment and Plan: #CHRISTIE -Unclear baseline [...] care of this patient. Katerina Weaver DO Office:[phone] Exchange: R SALES ASSESSOR * Latanya Sims LCSW - 05/16/2024 8:27 AM CSTAssociated Order(s): IP CONSULT TO DAYCARE DIRECTOR SOCIAL WORK CONSULT NOTE Reason for Consult: from RN. Negative pressure therapy. SW signing off. Does not follow for negative pressure therapy. If SW services are needed again, please feel free to put in a new consult. Thanks! Thanks Latanya Sims LCSW 05/16/2024 8:29 AM Extensions: [phone] or [phone] R SALES ASSESSOR * Emmanuelle Barragan RN - 05/16/2024 7:21 AM CSTAssociated Order(s): IP CONSULT TO WOUND NURSE See wound and skin note dated 05/16/24. Emmanuelle Barragan RN 05/16/2024 7:21 AM R SALES ASSESSOR * Lesa Rodríguez MD - 05/14/2024 5:14 [...] htn, anemia, anxiety, depression, bph, transfer from [facility]. Pt preseneted with LLE wound on [...] results for input(s): CDIFFTOXINAB in the last 40392 hours. No results for input(s): SEDRATE in the last 43788 hours. No results for input(s): CRP in the last 62365 hours. Recent Labs Component Name 05/14/24 0403 CK 136 .No results for input(s): VANCOTROUGH , VANCOPEAK , VANCSERIES in the last 03880 hours. Invalid input(s): VANCORAND Recent Labs Component [...] and tight glycemic control Lesa Rodríguez MD R SALES ASSESSOR * Abby Quinn, DPM - 05/14/2024 2:37 PM CSTAssociated Order(s): [...] Patient was sent from a hospital in [place] to handle this problem. Family History: No [...] gel, Oral, PRN Recent Labs Component Name 05/14/2440205/13/24182909/17/23 1247 WBC 21.8* 22.3* 7.6 HGB 7.7* 8.2* 11.7* HCT 25.1* 25.6* 33.8* PLTCOUNT 298 318 189 Recent Labs Component Name 05/14/2440205/13/24182909/17/23 1247 SODIUM 133* - - POTASSIUM 4.1 [...] results for input(s): INR in the last 02251 hours. No results for input(s): PT in the last 23170 hours. No results for input(s): PTT in the last 54314 hours. GENERAL: Conversant; NAD PSYCHE: Alert and [...] Thank you for asking [facility], [facility], Dr. Abby Quinn to participate in the care of your patient. Please call [phone] (Office), (Exchange), (Cell #, Call/ Text) with any questions or concerns. R SALES ASSESSOR * Yesenia Tan, JR/CAYETANO - 05/14/2024 12:24 [...] wound healing Bao can be purchased at [facility] located across from [facility] ([address] [place] [address]) for a reduced cost. fire support specialist is encouraged to prevent delivery fees, butif this isn't feasible it can be delivered to the home by calling [phone]. Patient would benefit from outpatient nutrition counseling & follow up at discharge. To see an outpatient dietitian a provider will need to enter an order for MNT (Medical Nutrition Therapy) Ambulatory [id number] in [facility]. MNT is a covered Medicare benefit for diabetes and renal disease. Other insurance coverage varies, patients should check with their insurance providers to verify coverage. CLINICAL NUTRITION ASSESSMENT: Received consult for non-healing wound. Reviewed wound images. 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 Suspect appetite was impacted [...] None Chewing/Swallowing: None GI Concerns: None Stools: EDUCATION REPORTER Skin/Wound: LLE wound Estimated Needs: KCAL: 6543-8128 kcals (11-14 kcal/kg of ABW) Protein (g): 138-183 g of PRO (1.5- 2.0 g of PRO/kg of IBW) Fluid (ml): 1 ml/kcal Recommended Access Route: PO Labs: Recent Labs Component Name 05/14/24 04005/13/24182909/17/23 1247 SODIUM 133* 133* - NA - [...] results for input(s): MAGNESIUM in the last 91471 hours. Recent Labs Component Name 05/14/24 0403 05/13/24 18309/17/23 1247 HGB 7.7* 8.2* 11.7* HCT 25.1* [...] Vitamin E, and 1.2 mcg Vitamin B12. M handout was provided and pt was encouraged to call concerning questions. Expected level of compliance: Fair Monitoring: Intake Weight Labs BM Skin integrity Monitor per nutrition guidelines. Risk Level: Moderate Evaluation: Nutrition Goal: Total intake will meet estimated nutrient needs Nutrition Goal Timeframe: Throughout stay Nutrition Goal Progress: New goal established Yesenia Morales RD/CAYETANO 05/14/2024 5:58 PM Weekend pager- [phone] R SALES ASSESSOR documented in this encounter OR Notes * Brief Op Note - Abby Quinn DPM - 05/20/2024 4:04 PM CST Dictation # [id number] Surgeon: Abby Quinn DPM Assist: RN Pre [...] 15cm x 2.5cm) 2. Application of Amnio Dilley Plus 5cm x 8cm (x 5). 3. [...] by adequate color to digits left foot. R SALES ASSESSOR * Operative - Abby Quinn DPM - 05/20/2024 2:43 PM CST [facility] Operative Report PATIENT NAME: RENE HYATT MR#: [id number] DATE OF : 1980 CSN: [id number] DATE OF ADMISSION: 05/13/2024 ROOM#: 363 DATE OF OPERATION: 05/20/2024 SURGEON: Abby Quinn D.P.M. CLEAN UP PERSON: ARYAN martínez. PREOPERATIVE DIAGNOSES: 1. Type 2 [...] vascular status adequate. NAME: RENE HYATT DICTATOR: ABBY QUINN D.P.M. DICTATED FOR: ULISES/JUAN JOSE JOB ID: [id number] Operative Report R SALES ASSESSOR * Brief Op Note - Abby Quinn DPM - 05/15/2024 3:51 PM CST Dictation # [id number] Surgeon: Abby Quinn DPM Assist: Chi Hoffman [...] by adequate color to digits left foot. R SALES ASSESSOR * Operative - Abby Quinn DPM - 05/15/2024 3:51 PM CST [facility] Operative Report PATIENT NAME: RENE HYATT MR#: [id number] DATE OF : 1980 CSN: [id number] DATE OF ADMISSION: 05/13/2024 ROOM#: [id number] DATE OF OPERATION: 05/15/2024 SURGEON: Stanton SantosPEdwinMEdwin CLEAN UP PERSON: Chi Hoffman DPM. PREOP DIAGNOSES: 1. Type [...] to the hospital from a hospital in [place]. The patient relates having an open ulceration [...] HYATT DICTATOR: ABBY QUINN D.P.M. DICTATED FOR: ULISES/JUAN JOSE JOB ID: [id number] Operative Report R SALES ASSESSOR documented in this encounter Plan of Treatment Pending Results Name Type Priority Associated Diagnoses Date /Time CULTURE AFB+SMEAR Microbiology STAT Left foot infection 05/15/2024 4:33 PM SOLAR SALES ASSESSOR CULTURE FUNGUS OTHER+FUNGUS SMEAR Microbiology STAT Left foot infection 05/15/2024 4:34 PM SOLAR SALES ASSESSOR CULTURE FUNGUS OTHER+FUNGUS SMEAR Microbiology STAT Diagnosis unknown 05/20/2024 2:58 PM SOLAR SALES ASSESSOR Scheduled Orders Name Type Priority Associated Diagnoses [...] CARDIAC RHYTHM STRIP ORDER 05/27/2024 5:02 PM SOLAR SALES ASSESSOR GLUCOSE - POINT OF CARE Routine 05/26/2024 11:48 AM SOLAR SALES ASSESSOR GLUCOSE - POINT OF CARE Routine 05/26/2024 8:04 AM SOLAR SALES ASSESSOR GLUCOSE - POINT OF CARE Routine 05/25/2024 8:59 PM SOLAR SALES ASSESSOR GLUCOSE - POINT OF CARE Routine 05/25/2024 4:36 PM SOLAR SALES ASSESSOR GLUCOSE - POINT OF CARE Routine 05/25/2024 11:36 AM SOLAR SALES ASSESSOR GLUCOSE - POINT OF CARE Routine 05/25/2024 8:12 AM SOLAR SALES ASSESSOR GLUCOSE - POINT OF CARE Routine 05/24/2024 7:43 PM SOLAR SALES ASSESSOR GLUCOSE - POINT OF CARE Routine 05/24/2024 5:12 PM SOLAR SALES ASSESSOR GLUCOSE - POINT OF CARE Routine 05/24/2024 12:30 PM SOLAR SALES ASSESSOR GLUCOSE - POINT OF CARE Routine 05/24/2024 7:40 AM SOLAR SALES ASSESSOR RENAL FUNCTION PANEL AM Draw 05/24/2024 5:08 AM SOLAR SALES ASSESSOR GLUCOSE - POINT OF CARE Routine 05/23/2024 7:43 PM SOLAR SALES ASSESSOR GLUCOSE - POINT OF CARE Routine 05/23/2024 5:17 PM SOLAR SALES ASSESSOR GLUCOSE - POINT OF CARE Routine 05/23/2024 11:46 AM SOLAR SALES ASSESSOR GLUCOSE - POINT OF CARE Routine 05/23/2024 7:38 AM SOLAR SALES ASSESSOR RENAL FUNCTION PANEL AM Draw 05/23/2024 3:33 AM SOLAR SALES ASSESSOR GLUCOSE - POINT OF CARE Routine 05/22/2024 9:22 PM SOLAR SALES ASSESSOR GLUCOSE - POINT OF CARE Routine 05/22/2024 5:29 PM SOLAR SALES ASSESSOR GLUCOSE - POINT OF CARE Routine 05/22/2024 12:15 PM SOLAR SALES ASSESSOR GLUCOSE - POINT OF CARE Routine 05/22/2024 7:20 AM SOLAR SALES ASSESSOR RENAL FUNCTION PANEL AM Draw 05/22/2024 3:09 AM SOLAR SALES ASSESSOR GLUCOSE - POINT OF CARE Routine 05/21/2024 8:39 PM SOLAR SALES ASSESSOR GLUCOSE - POINT OF CARE Routine 05/21/2024 5:12 PM SOLAR SALES ASSESSOR GLUCOSE - POINT OF CARE Routine 05/21/2024 11:59 AM SOLAR SALES ASSESSOR GLUCOSE - POINT OF CARE Routine 05/21/2024 7:47 AM SOLAR SALES ASSESSOR RENAL FUNCTION PANEL AM Draw 05/21/2024 3:03 AM SOLAR SALES ASSESSOR GLUCOSE - POINT OF CARE Routine 05/20/2024 7:40 PM SOLAR SALES ASSESSOR GLUCOSE - POINT OF CARE Routine 05/20/2024 5:59 PM SOLAR SALES ASSESSOR GLUCOSE - POINT OF CARE Routine 05/20/2024 4:42 PM SOLAR SALES ASSESSOR CULTURE FUNGUS OTHER+FUNGUS SMEAR STAT 05/20/2024 2:58 PM SOLAR SALES ASSESSOR Diagnosis unknown CULTURE WOUND+GRAM STAIN STAT 05/20/2024 2:58 PM SOLAR SALES ASSESSOR Diagnosis unknown CULTURE ANAEROBE STAT 05/20/2024 2:58 PM SOLAR SALES ASSESSOR Diagnosis unknown CT SANTI MUSC/FASCIA 20 SQ CM/< 05/20/2024 1:48 PM SOLAR SALES ASSESSOR Diagnosis unknown Special Needs NEEDS SKATING CARHOP, TPS, VERSAJET, VASHE IRRIGATION SOLUTION, INTEGRA EP (JAGJIT) NOTIFIED PER OFFICE(QUEENIE) 05/19 TM GLUCOSE - POINT OF CARE Routine 05/20/2024 8:56 AM SOLAR SALES ASSESSOR RENAL FUNCTION PANEL AM Draw 05/20/2024 3:09 AM SOLAR SALES ASSESSOR GLUCOSE - POINT OF CARE Routine 05/19/2024 10:16 PM SOLAR SALES ASSESSOR GLUCOSE - POINT OF CARE Routine 05/19/2024 8:17 PM SOLAR SALES ASSESSOR GLUCOSE - POINT OF CARE Routine 05/19/2024 5:11 PM SOLAR SALES ASSESSOR GLUCOSE - POINT OF CARE Routine 05/19/2024 12:03 PM SOLAR SALES ASSESSOR GLUCOSE - POINT OF CARE Routine 05/19/2024 7:29 AM SOLAR SALES ASSESSOR RENAL FUNCTION PANEL AM Draw 05/19/2024 2:16 AM SOLAR SALES ASSESSOR GLUCOSE - POINT OF CARE Routine 05/18/2024 7:46 PM SOLAR SALES ASSESSOR GLUCOSE - POINT OF CARE Routine 05/18/2024 6:07 PM SOLAR SALES ASSESSOR GLUCOSE - POINT OF CARE Routine 05/18/2024 11:58 AM SOLAR SALES ASSESSOR GLUCOSE - POINT OF CARE Routine 05/18/2024 9:20 AM SOLAR SALES ASSESSOR GLUCOSE - POINT OF CARE Routine 05/18/2024 7:42 AM SOLAR SALES ASSESSOR CBC W/O DIFFERENTIAL AM Draw 05/18/2024 3:38 AM SOLAR SALES ASSESSOR RENAL FUNCTION PANEL AM Draw 05/18/2024 3:38 AM SOLAR SALES ASSESSOR GLUCOSE - POINT OF CARE Routine 05/17/2024 11:12 PM SOLAR SALES ASSESSOR GLUCOSE - POINT OF CARE Routine 05/17/2024 10:29 PM SOLAR SALES ASSESSOR GLUCOSE - POINT OF CARE Routine 05/17/2024 6:02 PM SOLAR SALES ASSESSOR PROTEIN CREATININE RATIO URINE RANDOM PNL Routine 05/17/2024 1:14 PM SOLAR SALES ASSESSOR VAS ARTERIAL ANKLE ARM INDEX Routine 05/17/2024 12:04 PM SOLAR SALES ASSESSOR Ulcer of left foot with other severity (HCC) GLUCOSE - POINT OF CARE Routine 05/17/2024 11:57 AM SOLAR SALES ASSESSOR CBC W/O DIFFERENTIAL STAT 05/17/2024 9:46 AM SOLAR SALES ASSESSOR GLUCOSE - POINT OF CARE Routine 05/17/2024 7:57 AM SOLAR SALES ASSESSOR COMPLEMENT C4 Routine 05/17/2024 5:00 AM SOLAR SALES ASSESSOR BASIC METABOLIC PANEL (CALCIUM TOTAL) AM Draw 05/17/2024 5:00 AM SOLAR SALES ASSESSOR COMPLEMENT C3 Routine 05/17/2024 5:00 AM SOLAR SALES ASSESSOR GLUCOSE - POINT OF CARE Routine 05/16/2024 9:36 PM SOLAR SALES ASSESSOR GLUCOSE - POINT OF CARE Routine 05/16/2024 6:18 PM SOLAR SALES ASSESSOR MRI FOOT LEFT WO CONTRAST Routine 05/16/2024 5:20 PM SOLAR SALES ASSESSOR Ulcer of left foot with other severity (HCC) URINALYSIS REFLEX TO MICROSCOPIC NO CULTURE Routine 05/16/2024 12:57 PM SOLAR SALES ASSESSOR GLUCOSE - POINT OF CARE Routine 05/16/2024 11:07 AM SOLAR SALES ASSESSOR VANCOMYCIN LEVEL PEAK STAT 05/16/2024 9:04 AM SOLAR SALES ASSESSOR GLUCOSE - POINT OF CARE Routine 05/16/2024 7:53 AM SOLAR SALES ASSESSOR DIFFERENTIAL MANUAL AM Draw 05/16/2024 3 :09 AM SOLAR SALES ASSESSOR CBC W AUTO DIFFERENTIAL AM Draw 05/16/2024 3:09 AM SOLAR SALES ASSESSOR RENAL FUNCTION PANEL AM Draw 05/16/2024 3:09 AM SOLAR SALES ASSESSOR GLUCOSE - POINT OF CARE Routine 05/15/2024 8:43 PM SOLAR SALES ASSESSOR GLUCOSE - POINT OF CARE Routine 05/15/2024 6:01 PM SOLAR SALES ASSESSOR XR FOOT LEFT 2VW STAT 05/15/2024 5:31 PM SOLAR SALES ASSESSOR Left foot infection GLUCOSE - POINT OF CARE Routine 05/15/2024 5:06 PM SOLAR SALES ASSESSOR CULTURE FUNGUS OTHER+FUNGUS SMEAR STAT 05/15/2024 4:34 PM SOLAR SALES ASSESSOR Left foot infection CULTURE TISSUE+GRAM STAIN STAT 05/15/2024 4:34 PM SOLAR SALES ASSESSOR Left foot infection CULTURE ANAEROBE STAT 05/15/2024 4:34 PM SOLAR SALES ASSESSOR Left foot infection CULTURE TISSUE+GRAM STAIN STAT 05/15/2024 4:33 PM SOLAR SALES ASSESSOR Left foot infection CULTURE AFB+SMEAR STAT 05/15/2024 4:3 3 PM SOLAR SALES ASSESSOR Left foot infection CULTURE ANAEROBE STAT 05/15/2024 4:33 PM SOLAR SALES ASSESSOR Left foot infection PATHOLOGY TISSUE EXAM (STL) Routine 05/15/2024 4:29 PM SOLAR SALES ASSESSOR Left foot infection GLUCOSE - POINT OF CARE Routine 05/15/2024 1:31 PM SOLAR SALES ASSESSOR GLUCOSE - POINT OF CARE Routine 05/15/2024 7:50 AM SOLAR SALES ASSESSOR HEMOGLOBIN A1C Routine 05/15/2024 12:13 AM SOLAR SALES ASSESSOR DIFFERENTIAL MANUAL AM Draw 05/15/2024 12:13 AM SOLAR SALES ASSESSOR CBC W AUTO DIFFERENTIAL AM Draw 05/15/2024 12:13 AM SOLAR SALES ASSESSOR RENAL FUNCTION PANEL AM Draw 05/15/2024 12:13 AM SOLAR SALES ASSESSOR VANCOMYCIN LEVEL TROUGH STAT 05/15/2024 12:13 AM SOLAR SALES ASSESSOR GLUCOSE - POINT OF CARE Routine 05/14/2024 10:02 PM SOLAR SALES ASSESSOR SODIUM URINE RANDOM Routine 05/14/2024 5 :31 PM SOLAR SALES ASSESSOR PROTEIN CREATININE RATIO URINE RANDOM PNL Routine 05/14/2024 5:31 PM SOLAR SALES ASSESSOR VANCOMYCIN LEVEL PEAK STAT 05/14/2024 5:06 PM SOLAR SALES ASSESSOR GLUCOSE - POINT OF CARE Routine 05/14/2024 4:50 PM SOLAR SALES ASSESSOR US RETROPERITONEAL COMPLETE Routine 05/14/2024 2:17 PM SOLAR SALES ASSESSOR CHRISTIE (acute kidney injury) (HCC) EOSINOPHIL URINE SMEAR Routine 1:19 PM SOLAR SALES ASSESSOR CULTURE WOUND+GRAM STAIN Routine 05/14/2024 12:22 PM SOLAR SALES ASSESSOR GLUCOSE - POINT OF CARE Routine 05/14/2024 11:33 AM SOLAR SALES ASSESSOR CULTURE BLOOD STAT 05/14/2024 9:25 AM SOLAR SALES ASSESSOR CULTURE BLOOD STAT 05/14/2024 9:16 AM SOLAR SALES ASSESSOR B-TYPE NATRIURETIC PEPTIDE STAT 05/14/2024 9:16 AM SOLAR SALES ASSESSOR LACTIC ACID BLOOD STAT 05/14/2024 9:1 6 AM SOLAR SALES ASSESSOR FOLATE STAT 05/14/2024 9:16 AM SOLAR SALES ASSESSOR VITAMIN B12 STAT 05/14/2024 9:16 AM SOLAR SALES ASSESSOR GLUCOSE - POINT OF CARE Routine 05/14/2024 8:16 AM SOLAR SALES ASSESSOR RETIC COUNT STAT 05/14/2024 4:03 AM SOLAR SALES ASSESSOR DIFFERENTIAL MANUAL AM Draw 05/14/2024 4 :03 AM SOLAR SALES ASSESSOR CBC W AUTO DIFFERENTIAL AM Draw 05/14/2024 4:03 AM SOLAR SALES ASSESSOR RENAL FUNCTION PANEL AM Draw 05/14/2024 4:03 AM SOLAR SALES ASSESSOR CK BLOOD STAT 05/14/2024 4:03 AM SOLAR SALES ASSESSOR VANCOMYCIN LEVEL RANDOM STAT 05/14/2024 4:03 AM SOLAR SALES ASSESSOR IRON + TRANSFERRIN PANEL STAT 05/14/2024 4:03 AM SOLAR SALES ASSESSOR FERRITIN STAT 05/14/2024 4:03 AM SOLAR SALES ASSESSOR GLUCOSE - POINT OF CARE Routine 05/13/2024 11:10 PM SOLAR SALES ASSESSOR CBC W AUTO DIFFERENTIAL Routine 05/13/2024 6:30 PM SOLAR SALES ASSESSOR BASIC METABOLIC PANEL (CALCIUM TOTAL) STAT 05/13/2024 6:30 PM SOLAR SALES ASSESSOR documented in this encounter Results * CARDIAC RHYTHM STRIP ORDER (05/27/2024 5:02 PM SOLAR SALES ASSESSOR) Narrative 05/27/2024 5:02 PM SOLAR SALES ASSESSOR Ordered by an unspecified provider. Scanned Document CARDIAC SERVICES ORD ERABLES * (ABNORMAL) GLUCOSE - POINT OF CARE (05/26/2024 11:48 AM SOLAR SALES ASSESSOR) Glucose WB/POC 127(H) 70 - 99 mg/dL 06/06/2024 7:01 AM SOLAR SALES ASSESSOR [facility] Specimen Type Cap Fingerstick 2023 7:01 AM SOLAR SALES ASSESSOR [facility] Blood BLOOD SPECIMEN / Unknown 05/26/2024 11:48 AM SOLAR SALES ASSESSOR 06/06/2024 7:01 AM SOLAR SALES ASSESSOR Tereza Mcpherson MD LAB - POINT OF CARE ORDERABLES [facility] [address] [place] [address] * (ABNORMAL) GLUCOSE - POINT OF CARE (05/26/2024 8:04 AM SOLAR SALES ASSESSOR) Glucose WB/POC 116(H) 70 - 99 mg/dL 06/06/2024 7:01 AM SOLAR SALES ASSESSOR [facility] Specimen Type Cap Fingerstick 2023 7:01 AM SOLAR SALES ASSESSOR [facility] Blood BLOOD SPECIMEN / Unknown 05/26/2024 8:04 AM SOLAR SALES ASSESSOR 06/06/2024 7:01 AM SOLAR SALES ASSESSOR Tereza Mcpherson MD LAB - POINT OF CARE ORDERABLES Performing Organization Address [facility] Co de Phone Number [facility] [address] [place] [phone] * (ABNORMAL) GLUCOSE - POINT OF CARE (05/25/2024 8:59 PM SOLAR SALES ASSESSOR) Glucose WB/POC 162(H) 70 - 99 mg/dL 06/06/2024 7:01 AM SOLAR SALES ASSESSOR [facility] Specimen Type Cap Fingerstick 2023 7:01 AM SOLAR SALES ASSESSOR [facility] Blood BLOOD SPECIMEN / Unknown 05/25/2024 8:59 PM SOLAR SALES ASSESSOR 06/06/2024 7:01 AM SOLAR SALES ASSESSOR Tereza Mcpherson MD LAB - POINT OF CARE ORDERABLES Performing Organization Address [facility] Co de Phone Number [facility] [address] [place] [phone] * (ABNORMAL) GLUCOSE - POINT OF CARE (05/25/2024 4:36 PM SOLAR SALES ASSESSOR) Glucose WB/POC 167(H) 70 - 99 mg/dL 06/06/2024 7:01 AM SOLAR SALES ASSESSOR [facility] Specimen Type Cap Fingerstick 2023 7:01 AM SOLAR SALES ASSESSOR [facility] Blood BLOOD SPECIMEN / Unknown 05/25/2024 4:36 PM SOLAR SALES ASSESSOR 06/06/2024 7:01 AM SOLAR SALES ASSESSOR Tereza Mcpherson MD LAB - POINT OF CARE ORDERABLES Performing Organization Address [facility] Co de Phone Number [facility] [address] [place] [phone] * (ABNORMAL) GLUCOSE - POINT OF CARE (05/25/2024 11:36 AM SOLAR SALES ASSESSOR) Glucose WB/POC 146(H) 70 - 99 mg/dL 05/25/2024 12:00 PM SOLAR SALES ASSESSOR [facility] Specimen Type Cap Fingerstick 2023 12:00 PM SOLAR SALES ASSESSOR [facility] Blood BLOOD SPECIMEN / Unknown 05/25/2024 11:36 AM SOLAR SALES ASSESSOR 05/25/2024 12:00 PM SOLAR SALES ASSESSOR Tereza Mcpherson MD LAB - POINT OF CARE ORDERABLES Performing Organization Address City/[facility]/ZIP Co de Phone Number [facility] [address] [place] [phone] * (ABNORMAL) GLUCOSE - POINT OF CARE (05/25/2024 8:12 AM SOLAR SALES ASSESSOR) Glucose WB/POC 119(H) 70 - 99 mg/dL 05/25/2024 12:00 PM SOLAR SALES ASSESSOR [facility] Specimen Type Cap Fingerstick 2023 12:00 PM SOLAR SALES ASSESSOR [facility] Blood BLOOD SPECIMEN / Unknown 05/25/2024 8:12 AM SOLAR SALES ASSESSOR 05/25/2024 12:00 PM SOLAR SALES ASSESSOR Tereza Mcpherson MD LAB - POINT OF CARE ORDERABLES Performing Organization Address [facility] Co de Phone Number [facility] [address] [place] [phone] * (ABNORMAL) GLUCOSE - POINT OF CARE (05/24/2024 7:43 PM SOLAR SALES ASSESSOR) Glucose WB/POC 167(H) 70 - 99 mg/dL 05/24/2024 7:53 PM SOLAR SALES ASSESSOR [facility] Specimen Type Arterial 05/24/2024 7:53 PM SOLAR SALES ASSESSOR [facility] Blood BLOOD SPECIMEN / Unknown 05/24/2024 7:43 PM SOLAR SALES ASSESSOR 05/24/2024 7:52 PM SOLAR SALES ASSESSOR Tereza Mcpherson MD LAB - POINT OF CARE ORDERABLES Performing Organization Address [facility]/ZIP Co de Phone Number [facility] [address] [place] [address] [phone] * (ABNORMAL) GLUCOSE - POINT OF CARE (05/24/2024 5:12 PM SOLAR SALES ASSESSOR) Glucose WB/POC 174(H) 70 - 99 mg/dL 05/24/2024 7:30 PM SOLAR SALES ASSESSOR [facility] Specimen Type Cap Fingerstick 2023 7:30 PM SOLAR SALES ASSESSOR [facility] Blood BLOOD SPECIMEN / Unknown 05/24/2024 5:12 PM SOLAR SALES ASSESSOR 05/24/2024 7:30 PM SOLAR SALES ASSESSOR Tereza Mcpherson MD LAB - POINT OF CARE ORDERABLES Performing Organization Address City/[facility]/ZIP Co de Phone Number [facility] [address] [place] [address] * (ABNORMAL) GLUCOSE - POINT OF CARE (05/24/2024 12:30 PM SOLAR SALES ASSESSOR) Glucose WB/POC 167(H) 70 - 99 mg/dL 05/24/2024 7:30 PM SOLAR SALES ASSESSOR [facility] Specimen Type Cap Fingerstick 2023 7:30 PM SOLAR SALES ASSESSOR [facility] Blood BLOOD SPECIMEN / Unknown 05/24/2024 12:30 PM SOLAR SALES ASSESSOR 05/24/2024 7:30 PM SOLAR SALES ASSESSOR Tereza Mcpherson MD LAB - POINT OF CARE ORDERABLES Performing Organization Address [facility] Co de Phone Number [facility] [address] [place], [place] [id number] * (ABNORMAL) GLUCOSE - POINT OF CARE (05/24/2024 7:40 AM SOLAR SALES ASSESSOR) Glucose WB/POC 132(H) 70 - 99 mg/dL 05/24/2024 7:50 AM SOLAR SALES ASSESSOR [facility] Specimen Type Cap Fingerstick 2023 7:50 AM SOLAR SALES ASSESSOR [facility] Blood BLOOD SPECIMEN / Unknown 05/24/2024 7:40 AM SOLAR SALES ASSESSOR 05/24/2024 7:49 AM SOLAR SALES ASSESSOR Tereza Mcpherson MD LAB - POINT OF CARE ORDERABLES [facility] [address] [place] [address] * (ABNORMAL) RENAL FUNCTION PANEL (05/24/2024 5:08 AM SOLAR SALES ASSESSOR) Glucose 123(H) 70 - 99 mg/dL 05/24/2024 5:56 AM [facility] Sodium 140 136 - 145 mmol/L 05/24/2024 5:56 AM [facility] Potassium 4.3 3.5 - 5.1 mmol/L 05/24/2024 5:56 AM [facility] Chloride 111(H) 98 - 107 mmol/L 05/24/2024 5:56 AM [facility] CO2 23 22 - 29 mmol/L 05/24/2024 5:56 AM [facility] Calcium 8.9 8.4 - 10.4 mg/dL 05/24/2024 5:56 AM [facility] Anion Gap 6 6 - 16 mmol/L 05/24/2024 5:56 AM [facility] BUN 26(H) 5.3 - 18.7 mg/dL 05/24/2024 5:56 AM [facility] Creatinine 1.33(H) 0.72 - 1.25 mg/dL 05/24/2024 5:56 AM [facility] Albumin 2.0(L) 3.4 - 5.0 gm/dL 05/24/2024 5:56 AM [facility] Phosphorus 4.2 2.5 - 4.5 mg/dL 05/24/2024 5:56 AM [facility] eGFR by CKD-EPI 68(L) >=90 mL/min/1.7 3 m2 05/24/2024 5:56 AM [facility] Blood BLOOD SPECIMEN / Unknown Lab Venipuncture / Unknown 05/24/2024 5:08 AM SOLAR SALES ASSESSOR 05/24/2024 5:[address] [facility] Manpreet Stuart MD LAB - CHEMISTRY MELIDA COLLINS [facility] Organization Address City/State/ZIP Co de Phone Number [facility] [address] [place] [address] * (ABNORMAL) GLUCOSE - POINT OF CARE (05/23/2024 7:43 PM SOLAR SALES ASSESSOR) Glucose WB/POC 170(H) 70 - 99 mg/dL 05/23/2024 7:52 PM SOLAR SALES ASSESSOR [facility] Specimen Type Arterial 05/23/2024 7:52 PM SOLAR SALES ASSESSOR [facility] Blood BLOOD SPECIMEN / Unknown 05/23/2024 7:43 PM SOLAR SALES ASSESSOR 05/23/2024 7:52 PM SOLAR SALES ASSESSOR Manpreet Stuart MD LAB - POINT OF CARE ORDERABLES Performing Organization Address City/[facility]/ZIP Co de Phone Number [facility] [address] [place] [phone] * (ABNORMAL) GLUCOSE - POINT OF CARE (05/23/2024 5:17 PM SOLAR SALES ASSESSOR) Glucose WB/POC 176(H) 70 - 99 mg/dL 05/23/2024 7:52 PM SOLAR SALES ASSESSOR [facility] Specimen Type Cap Fingerstick 2023 7:52 PM SOLAR SALES ASSESSOR [facility] Blood BLOOD SPECIMEN / Unknown 05/23/2024 5:17 PM SOLAR SALES ASSESSOR 05/23/2024 7:52 PM SOLAR SALES ASSESSOR Manpreet Stuart MD LAB - POINT OF CARE ORDERABLES Performing Organization Address [facility] Co de Phone Number [facility] [address] [place] [phone] * (ABNORMAL) GLUCOSE - POINT OF CARE (05/23/2024 11:46 AM SOLAR SALES ASSESSOR) Glucose WB/POC 176(H) 70 - 99 mg/dL 05/24/2024 7:17 AM SOLAR SALES ASSESSOR [facility] Specimen Type Cap Fingerstick 2023 7:17 AM SOLAR SALES ASSESSOR [facility] Blood BLOOD SPECIMEN / Unknown 05/23/2024 11:46 AM SOLAR SALES ASSESSOR 05/24/2024 7:17 AM SOLAR SALES ASSESSOR Manpreet Stuart MD LAB - POINT OF CARE ORDERABLES Performing Organization Address City/[facility]/ZIP Co de Phone Number [facility] [address] [place] [phone] * (ABNORMAL) GLUCOSE - POINT OF CARE (05/23/2024 7:38 AM SOLAR SALES ASSESSOR) Glucose WB/POC 156(H) 70 - 99 mg/dL 05/24/2024 12:30 AM SOLAR SALES ASSESSOR [facility] Specimen Type Cap Fingerstick 2023 12:30 AM SOLAR SALES ASSESSOR [facility] Blood BLOOD SPECIMEN / Unknown 05/23/2024 7:38 AM SOLAR SALES ASSESSOR 05/24/2024 12:30 AM SOLAR SALES ASSESSOR Manpreet Stuart MD LAB - POINT OF CARE ORDERABLES Performing Organization Address City/State/[facility] Co de Phone Number [facility] [address] [place] [address] * (ABNORMAL) RENAL FUNCTION PANEL (05/23/2024 3:33 AM SOLAR SALES ASSESSOR) Glucose 174(H) 70 - 99 mg/dL 05/23/2024 4:24 AM [facility] Sodium 136 136 - 145 mmol/L 05/23/2024 4:24 AM [facility] Potassium 5.3(H) 3.5 - 5.1 mmol/L 05/23/2024 4:24 AM [facility] Chloride 109(H) 98 - 107 mmol/L 05/23/2024 4:24 AM [facility] CO2 22 22 - 29 mmol/L 05/23/2024 4:24 AM [facility] Calcium 8.8 8.4 - 10.4 mg/dL 05/23/2024 4:24 AM [facility] Anion Gap 5(L) 6 - 16 mmol/L 05/23/2024 4:24 AM [facility] BUN 28(H) 5.3 - 18.7 mg/dL 05/23/2024 4:24 AM [facility] Creatinine 1.47(H) 0.72 - 1.25 mg/dL 05/23/2024 4:24 AM [facility] Albumin 1.9(L) 3.4 - 5.0 gm/dL 05/23/2024 4:24 AM [facility] Phosphorus 3.7 2.5 - 4.5 mg/dL 05/23/2024 4:24 AM SOLAR SALES ASSESSOR [facility] eGFR by CKD-EPI 60(L) >=90 mL/min/1.7 3 m2 05/23/2024 4:24 AM SOLAR SALES ASSESSOR [facility] Blood BLOOD SPECIMEN / Unknown Lab Venipuncture / Unknown 05/23/2024 3:33 AM SOLAR SALES ASSESSOR 05/23/2024 3:45 AM SOLAR SALES ASSESSOR Manpreet Stuart MD LAB - CHEMISTRY MELIDA COLLINS [facility] [address] [place] [phone] * (ABNORMAL) GLUCOSE - POINT OF CARE (05/22/2024 9:22 PM SOLAR SALES ASSESSOR) Glucose WB/POC 233(H) 70 - 99 mg/dL 05/23/2024 7:16 AM SOLAR SALES ASSESSOR [facility] Specimen Type Cap Fingerstick 2023 7:16 AM SOLAR SALES ASSESSOR [facility] Blood BLOOD SPECIMEN / Unknown 05/22/2024 9:22 PM SOLAR SALES ASSESSOR 05/23/2024 7:16 AM SOLAR SALES ASSESSOR Manpreet Stuart MD LAB - POINT OF CARE ORDERABLES Performing Organization Address [facility] Co de Phone Number [facility] [address] [place] [phone] * (ABNORMAL) GLUCOSE - POINT OF CARE (05/22/2024 5:29 PM SOLAR SALES ASSESSOR) Glucose WB/POC 171(H) 70 - 99 mg/dL 05/22/2024 5:39 PM SOLAR SALES ASSESSOR [facility] Specimen Type Cap Fingerstick 2023 5:39 PM SOLAR SALES ASSESSOR [facility] Blood BLOOD SPECIMEN / Unknown 05/22/2024 5:29 PM SOLAR SALES ASSESSOR 05/22/2024 5:39 PM SOLAR SALES ASSESSOR Manpreet Stuart MD LAB - POINT OF CARE ORDERABLES Performing Organization Address City/[facility]/ZIP Co de Phone Number [facility] [address] [place] [phone] * (ABNORMAL) GLUCOSE - POINT OF CARE (05/22/2024 12:15 PM SOLAR SALES ASSESSOR) Glucose WB/POC 149(H) 70 - 99 mg/dL 05/22/2024 12:34 PM SOLAR SALES ASSESSOR [facility] Specimen Type Cap Fingerstick 2023 12:34 PM SOLAR SALES ASSESSOR [facility] Blood BLOOD SPECIMEN / Unknown 05/22/2024 12:15 PM SOLAR SALES ASSESSOR 05/22/2024 12:34 PM SOLAR SALES ASSESSOR Manpreet Stuart MD LAB - POINT OF CARE ORDERABLES Performing Organization Address City/[facility]/ZIP Co de Phone Number [facility] [address] [place] [phone] * (ABNORMAL) GLUCOSE - POINT OF CARE (05/22/2024 7:20 AM SOLAR SALES ASSESSOR) Glucose WB/POC 141(H) 70 - 99 mg/dL 05/22/2024 12:34 PM SOLAR SALES ASSESSOR [facility] Specimen Type Cap Fingerstick 2023 12:34 PM SOLAR SALES ASSESSOR [facility] Blood BLOOD SPECIMEN / Unknown 05/22/2024 7:20 AM SOLAR SALES ASSESSOR 05/22/2024 12:34 PM SOLAR SALES ASSESSOR Manpreet Stuart MD LAB - POINT OF CARE ORDERABLES [facility] [address] [place] [phone] * (ABNORMAL) RENAL FUNCTION PANEL (05/22/2024 3:09 AM SOLAR SALES ASSESSOR) Glucose 153(H) 70 - 99 mg/dL 05/22/2024 5:14 AM SOLAR SALES ASSESSOR [facility] Sodium 136 136 - 145 mmol/L 05/22/2024 5:14 AM SOLAR SALES ASSESSOR [facility] Potassium 4.7 3.5 - 5.1 mmol/L 05/22/2024 5:14 AM SOLAR SALES ASSESSOR [facility] Chloride 108(H) 98 - 107 mmol/L 05/22/2024 5:14 AM SOLAR SALES ASSESSOR [facility] CO2 23 22 - 29 mmol/L 05/22/2024 5:14 AM [facility] Calcium 8.6 8.4 - 10.4 mg/dL 05/22/2024 5:14 AM [facility] Anion Gap 5(L) 6 - 16 mmol/L 05/22/2024 5:14 AM [facility] BUN 28(H) 5.3 - 18.7 mg/dL 05/22/2024 5:14 AM [facility] Creatinine 1.38(H) 0.72 - 1.25 mg/dL 05/22/2024 5:14 AM [facility] Albumin 1.8(L) 3.4 - 5.0 gm/dL 05/22/2024 5:14 AM [facility] Phosphorus 4.0 2.5 - 4.5 mg/dL 05/22/2024 5:14 AM [facility] eGFR by CKD-EPI 65(L) >=90 mL/min/1.7 3 m2 05/22/2024 5:14 AM [facility] Blood BLOOD SPECIMEN / Unknown Lab Venipuncture / Unknown 05/22/2024 3:09 AM SOLAR SALES ASSESSOR 05/22/2024 4:36 AM SOLAR SALES ASSESSOR Manpreet Stuart MD LAB - CHEMISTRY ORDE RABLES [facility] [address] [place] [phone] * (ABNORMAL) GLUCOSE - POINT OF CARE (05/21/2024 8:39 PM SOLAR SALES ASSESSOR) Glucose WB/POC 178(H) 70 - 99 mg/dL 05/21/2024 11:11 PM SOLAR SALES ASSESSOR [facility] Specimen Type Cap Fingerstick 2023 11:11 PM [facility] Blood BLOOD SPECIMEN / Unknown 05/21/2024 8:39 PM SOLAR SALES ASSESSOR 05/21/2024 11:11 PM SOLAR SALES ASSESSOR Manpreet Stuart MD LAB - POINT OF CARE ORDERABLES [facility] [address] [place] [phone] * (ABNORMAL) GLUCOSE - POINT OF CARE (05/21/2024 5:12 PM SOLAR SALES ASSESSOR) Glucose WB/POC 178(H) 70 - 99 mg/dL 05/21/2024 5:55 PM SOLAR SALES ASSESSOR [facility] Specimen Type Cap Fingerstick 2023 5:55 PM SOLAR SALES ASSESSOR [facility] Blood BLOOD SPECIMEN / Unknown 05/21/2024 5:12 PM SOLAR SALES ASSESSOR 05/21/2024 5:55 PM SOLAR SALES ASSESSOR Manpreet Stuart MD LAB - POINT OF CARE ORDERABLES Performing Organization Address [facility]/ZIP Co de Phone Number [facility] [address] [place] [phone] * (ABNORMAL) GLUCOSE - POINT OF CARE (05/21/2024 11:59 AM SOLAR SALES ASSESSOR) Glucose WB/POC 149(H) 70 - 99 mg/dL 05/21/2024 12:48 PM SOLAR SALES ASSESSOR [facility] Specimen Type Cap Fingerstick 2023 12:48 PM SOLAR SALES ASSESSOR [facility] Blood BLOOD SPECIMEN / Unknown 05/21/2024 11:59 AM SOLAR SALES ASSESSOR 05/21/2024 12:48 PM SOLAR SALES ASSESSOR Manpreet Stuart MD LAB - POINT OF CARE ORDERABLES Performing Organization Address [facility] Co de Phone Number [facility] [address] [place] [phone] * (ABNORMAL) GLUCOSE - POINT OF CARE (05/21/2024 7:47 AM SOLAR SALES ASSESSOR) Glucose WB/POC 182(H) 70 - 99 mg/dL 05/21/2024 8:00 AM SOLAR SALES ASSESSOR [facility] Specimen Type Cap Fingerstick 2023 8:00 AM SOLAR SALES ASSESSOR [facility] Blood BLOOD SPECIMEN / Unknown 05/21/2024 7:47 AM SOLAR SALES ASSESSOR 05/21/2024 8:00 AM SOLAR SALES ASSESSOR Manpreet Stuart MD LAB - POINT OF CARE ORDERABLES [facility] [address] [place] [address] * (ABNORMAL) RENAL FUNCTION PANEL (05/21/2024 3:[address] [facility]) Glucose 179(H) 70 - 99 mg/dL 05/21/2024 4:31 AM [facility] Sodium 138 136 - 145 mmol/L 05/21/2024 4:31 AM [facility] Potassium 5.2(H) 3.5 - 5.1 mmol/L 05/21/2024 4:31 AM [facility] Chloride 110(H) 98 - 107 mmol/L 05/21/2024 4:31 AM [facility] CO2 24 22 - 29 mmol/L 05/21/2024 4:31 AM [facility] Calcium 8.8 8.4 - 10.4 mg/dL 05/21/2024 4:31 AM [facility] Anion Gap 4(L) 6 - 16 mmol/L 05/21/2024 4:31 AM [facility] BUN 29(H) 5.3 - 18.7 mg/dL 05/21/2024 4:31 AM [facility] Creatinine 1.48(H) 0.72 - 1.25 mg/dL 05/21/2024 4:31 AM [facility] Albumin 1.7(L) 3.4 - 5.0 gm/dL 05/21/2024 4:31 AM [facility] Phosphorus 4.2 2.5 - 4.5 mg/dL 05/21/2024 4:31 AM [facility] eGFR by CKD-EPI 59(L) >=90 mL/min/1.7 3 m2 05/21/2024 4:31 AM [facility] Blood BLOOD SPECIMEN / Unknown Lab Venipuncture / Unknown 05/21/2024 3:03 AM SOLAR SALES ASSESSOR 05/21/2024 3:[address] [facility] Manpreet Stuart MD LAB - CHEMISTRY MELIDA COLLINS Performing Organization Address City/[facility]/ZIP Co de Phone Number [facility] [address] [place] [address] * (ABNORMAL) GLUCOSE - POINT OF CARE (05/20/2024 7:40 PM SOLAR SALES ASSESSOR) Glucose WB/POC 184(H) 70 - 99 mg/dL 05/20/2024 8:57 PM SOLAR SALES ASSESSOR [facility] Specimen Type Arterial 05/20/2024 8:57 PM SOLAR SALES ASSESSOR [facility] Blood BLOOD SPECIMEN / Unknown 05/20/2024 7:40 PM SOLAR SALES ASSESSOR 05/20/2024 8:57 PM SOLAR SALES ASSESSOR Manpreet Stuart MD LAB - POINT OF CARE ORDERABLES Performing Organization Address [facility] Co de Phone Number [facility] [address] [place] [phone] * (ABNORMAL) GLUCOSE - POINT OF CARE (05/20/2024 5:59 PM SOLAR SALES ASSESSOR) Glucose WB/POC 167(H) 70 - 99 mg/dL 05/20/2024 6:08 PM SOLAR SALES ASSESSOR [facility] Specimen Type Cap Fingerstick 2023 6:08 PM SOLAR SALES ASSESSOR [facility] Blood BLOOD SPECIMEN / Unknown 05/20/2024 5:59 PM SOLAR SALES ASSESSOR 05/20/2024 6:08 PM SOLAR SALES ASSESSOR Manpreet Stuart MD LAB - POINT OF CARE ORDERABLES Performing Organization Address [facility] Co de Phone Number [facility] [address] [place] [phone] * (ABNORMAL) GLUCOSE - POINT OF CARE (05/20/2024 4:42 PM SOLAR SALES ASSESSOR) Glucose WB/POC 180(H) 70 - 99 mg/dL 05/20/2024 4:48 PM SOLAR SALES ASSESSOR [facility] Specimen Type Cap Fingerstick 2023 4:48 PM SOLAR SALES ASSESSOR [facility] Blood BLOOD SPECIMEN / Unknown 05/20/2024 4:42 PM SOLAR SALES ASSESSOR 05/20/2024 4:48 PM SOLAR SALES ASSESSOR Manpreet Stuart MD LAB - POINT OF CARE ORDERABLES [facility] [address] [place] [address] * CULTURE WOUND+GRAM STAIN (05/20/2024 2:58 PM SOLAR SALES ASSESSOR) Culture Rare normal skin jero JEFF 05/22/2024 9:21 PM SOLAR SALES ASSESSOR [facility] Gram Stain Moderate Polymorphonuclear cells 05/22/2024 9:21 PM SOLAR SALES ASSESSOR [facility] Gram Stain No organisms seen 024 9:21 PM SOLAR SALES ASSESSOR [facility] Microbiology ENTIRE FOOT / Unknown 05/20/2024 2:58 PM SOLAR SALES ASSESSOR 05/20/2024 3:58 PM SOLAR SALES ASSESSOR Comment:Pre-op diagnosis: Diagnosis unknown [R69] Narrative [facility] - 05/22/2024 9:21 PM SOLAR SALES ASSESSOR Surgical Description: Left Foot Wound Culture Abby Quinn [facility] - MICROBIOLOGY O RDERATORREY Performing Organization Address [facility] Co de Phone Number [facility] [address] [place] [address], [facility] [phone] * CULTURE ANAEROBE (05/20/2024 2:58 PM SOLAR SALES ASSESSOR) Culture No anaerobic organisms isolated JEFF 05/25/2024 3:37 PM SOLAR SALES ASSESSOR [facility] Microbiology ENTIRE FOOT / Unknown 05/20/2024 2:58 PM SOLAR SALES ASSESSOR 05/20/2024 3:58 PM SOLAR SALES ASSESSOR Comment:Pre-op diagnosis: Diagnosis unknown [R69] Narrative [facility] - 05/25/2024 3:37 PM SOLAR SALES ASSESSOR Surgical Description: Left Foot Wound Culture Abby Quinn [facility] - MICROBIOLOGY O RDERABLES Performing Organization Address [facility] Co de Phone Number [facility] [address] [place] [address], [facility] [phone] * (ABNORMAL) GLUCOSE - POINT OF CARE (05/20/2024 8:56 AM SOLAR SALES ASSESSOR) Glucose WB/POC 181(H) 70 - 99 mg/dL 05/20/2024 9:05 AM SOLAR SALES ASSESSOR [facility] Specimen Type Cap Fingerstick 2023 9:05 AM [facility] Blood BLOOD SPECIMEN / Unknown 05/20/2024 8:56 AM SOLAR SALES ASSESSOR 05/20/2024 9:[address] [facility] Manpreet Stuart MD LAB - POINT OF CARE ORDERABLES Performing Organization Address City/State/[facility] Co de Phone Number [facility] [address] [place] [address] * (ABNORMAL) RENAL FUNCTION PANEL (05/20/2024 3:[address] [facility]) Glucose 167(H) 70 - 99 mg/dL 05/20/2024 4:11 AM [facility] Sodium 136 136 - 145 mmol/L 05/20/2024 4:11 AM [facility] Potassium 4.8 3.5 - 5.1 mmol/L 05/20/2024 4:11 AM [facility] Chloride 109(H) 98 - 107 mmol/L 05/20/2024 4:11 AM [facility] CO2 23 22 - 29 mmol/L 05/20/2024 4:11 AM [facility] Calcium 8.6 8.4 - 10.4 mg/dL 05/20/2024 4:11 AM [facility] Anion Gap 4(L) 6 - 16 mmol/L 05/20/2024 4:11 AM [facility] BUN 33(H) 5.3 - 18.7 mg/dL 05/20/2024 4:11 AM [facility] Creatinine 1.44(H) 0.72 - 1.25 mg/dL 05/20/2024 4:11 AM [facility] Albumin 1.7(L) 3.4 - 5.0 gm/dL 05/20/2024 4:11 AM [facility] Phosphorus 3.3 2.5 - 4.5 mg/dL 05/20/2024 4:11 AM [facility] eGFR by CKD-EPI 61(L) >=90 mL/min/1.7 3 m2 05/20/2024 4:11 AM [facility] Blood BLOOD SPECIMEN / Unknown Lab Venipuncture / Unknown 05/20/2024 3:09 AM SOLAR SALES ASSESSOR 05/20/2024 3:49 AM SOLAR SALES ASSESSOR Manpreet Stuart MD LAB - CHEMISTRY MELIDA COLLINS Performing Organization Address [facility]/ZIP Co de Phone Number [facility] [address] [place] [phone] * (ABNORMAL) GLUCOSE - POINT OF CARE (05/19/2024 10:16 PM SOLAR SALES ASSESSOR) Glucose WB/POC 172(H) 70 - 99 mg/dL 05/20/2024 12:23 AM SOLAR SALES ASSESSOR [facility] Specimen Type Cap Fingerstick 2023 12:23 AM SOLAR SALES ASSESSOR [facility] Blood BLOOD SPECIMEN / Unknown 05/19/2024 10:16 PM SOLAR SALES ASSESSOR 05/20/2024 12:23 AM SOLAR SALES ASSESSOR Manpreet Stuart MD LAB - POINT OF CARE ORDERABLES Performing Organization Address [facility] Co de Phone Number [facility] [address] [place] [phone] * (ABNORMAL) GLUCOSE - POINT OF CARE (05/19/2024 8:17 PM [employer]AR SALES ASSESSOR) Glucose WB/POC 186(H) 70 - 99 mg/dL 05/19/2024 8:27 PM [employer]AR SALES ASSESSOR [facility] Specimen Type Cap Fingerstick 2023 8:27 PM SOLAR SALES ASSESSOR [facility] Blood BLOOD SPECIMEN / Unknown 05/19/2024 8:17 PM SOLAR SALES ASSESSOR 05/19/2024 8:27 PM SOLAR SALES ASSESSOR Manpreet Stuart MD LAB - POINT OF CARE ORDERABLES Performing Organization Address [facility]/ZIP Co de Phone Number [facility] [address] [place] [phone] * (ABNORMAL) GLUCOSE - POINT OF CARE (05/19/2024 5:11 PM SOLAR SALES ASSESSOR) Glucose WB/POC 173(H) 70 - 99 mg/dL 05/19/2024 8:21 PM SOLAR SALES ASSESSOR [facility] Specimen Type Cap Fingerstick 2023 8:21 PM SOLAR SALES ASSESSOR [facility] Blood BLOOD SPECIMEN / Unknown 05/19/2024 5:11 PM SOLAR SALES ASSESSOR 05/19/2024 8:20 PM SOLAR SALES ASSESSOR Manpreet Stuart MD LAB - POINT OF CARE ORDERABLES Performing Organization Address [facility] Co de Phone Number [facility] [address] [place] [phone] * (ABNORMAL) GLUCOSE - POINT OF CARE (05/19/2024 12:03 PM SOLAR SALES ASSESSOR) Glucose WB/POC 177(H) 70 - 99 mg/dL 05/19/2024 12:15 PM SOLAR SALES ASSESSOR [facility] Specimen Type Cap Fingerstick 2023 12:15 PM SOLAR SALES ASSESSOR [facility] Blood BLOOD SPECIMEN / Unknown 05/19/2024 12:03 PM SOLAR SALES ASSESSOR 05/19/2024 12:15 PM SOLAR SALES ASSESSOR Manpreet Stuart MD LAB - POINT OF CARE ORDERABLES Performing Organization Address [facility] Co de Phone Number [facility] [address] [place] [phone] * (ABNORMAL) GLUCOSE - POINT OF CARE (05/19/2024 7:29 AM SOLAR SALES ASSESSOR) Glucose WB/POC 172(H) 70 - 99 mg/dL 05/19/2024 7:47 AM SOLAR SALES ASSESSOR [facility] Specimen Type Cap Fingerstick 2023 7:47 AM SOLAR SALES ASSESSOR [facility] Blood BLOOD SPECIMEN / Unknown 05/19/2024 7:29 AM SOLAR SALES ASSESSOR 05/19/2024 7:46 AM SOLAR SALES ASSESSOR Manpreet Stuart MD LAB - POINT OF CARE ORDERABLES Performing Organization Address [facility] Co de Phone Number [facility] [address] [place] [phone] * (ABNORMAL) RENAL FUNCTION PANEL (05/19/2024 2:16 AM [employer] SALES ASSESSOR) Glucose 190(H) 70 - 99 mg/dL 05/19/2024 3:31 AM [facility] Sodium 136 136 - 145 mmol/L 05/19/2024 3:31 AM [facility] [facility] Potassium 5.2(H) 3.5 - 5.1 mmol/L 05/19/2024 3:31 AM [facility] Chloride 110(H) 98 - 107 mmol/L 05/19/2024 3:31 AM [facility] CO2 20(L) 22 - 29 mmol/L 05/19/2024 3:31 AM [facility] Calcium 8.6 8.4 - 10.4 mg/dL 05/19/2024 3:31 AM [facility] Anion Gap 6 6 - 16 mmol/L 05/19/2024 3:31 AM [facility] BUN 36(H) 5.3 - 18.7 mg/dL 05/19/2024 3:31 AM [facility] Creatinine 1.58(H) 0.72 - 1.25 mg/dL 05/19/2024 3:31 AM [facility] Albumin 1.6(L) 3.4 - 5.0 gm/dL 05/19/2024 3:31 AM [facility] Phosphorus 3.4 2.5 - 4.5 mg/dL 05/19/2024 3:31 AM [facility] eGFR by CKD-EPI 55(L) >=90 mL/min/1.7 3 m2 05/19/2024 3:31 AM [facility] Blood BLOOD SPECIMEN / Unknown Lab Venipuncture / Unknown 05/19/2024 2:16 AM [employer] SALES ASSESSOR 05/19/2024 2:[address] [facility] Manpreet Stuart MD LAB - CHEMISTRY MELIDA COLLINS [facility] [address] [place] [address] * (ABNORMAL) GLUCOSE - POINT OF CARE (05/18/2024 7:46 PM [employer] SALES ASSESSOR) Glucose WB/POC 249(H) 70 - 99 mg/dL 05/18/2024 7:56 PM [facility] Specimen Type Arterial 05/18/2024 7:56 PM SOLAR SALES ASSESSOR [facility] Blood BLOOD SPECIMEN / Unknown 05/18/2024 7:46 PM [employer]AR SALES ASSESSOR 05/18/2024 7:56 PM [employer] SALES ASSESSOR Manpreet Stuart MD LAB - POINT OF CARE ORDERABLES Performing Organization Address [facility] Co de Phone Number [facility] [address] [place] [phone] * (ABNORMAL) GLUCOSE - POINT OF CARE (05/18/2024 6:07 PM [employer]AR SALES ASSESSOR) Glucose WB/POC 254(H) 70 - 99 mg/dL 05/20/2024 8:25 AM SOLAR SALES ASSESSOR [facility] Specimen Type Cap Fingerstick 2023 8:25 AM SOLAR SALES ASSESSOR [facility] Blood BLOOD SPECIMEN / Unknown 05/18/2024 6:07 PM SOLAR SALES ASSESSOR 05/20/2024 8:25 AM [employer] SAL[employer] ASSESSOR Manpreet Stuart MD LAB - POINT OF CARE ORDERABLES Performing Organization Address [facility] Co de Phone Number [facility] [address] [place] [phone] * (ABNORMAL) GLUCOSE - POINT OF CARE (05/18/2024 11:58 AM SOLAR SALES ASSESSOR) Glucose WB/POC 200(H) 70 - 99 mg/dL 05/18/2024 4:49 PM SOLAR SALES ASSESSOR [facility] Specimen Type Cap Fingerstick 2023 4:49 PM SOLAR SALES ASSESSOR [facility] Blood BLOOD SPECIMEN / Unknown 05/18/2024 11:58 AM SOLAR SALES ASSESSOR 05/18/2024 4:49 PM [employer] SALES ASSESSOR Manpreet Stuart MD LAB - POINT OF CARE ORDERABLES Performing Organization Address [facility] Co de Phone Number [facility] [address] [place] [phone] * (ABNORMAL) GLUCOSE - POINT OF CARE (05/18/2024 9:20 AM SOLAR SALES ASSESSOR) Glucose WB/POC 191(H) 70 - 99 mg/dL 05/18/2024 10:13 AM SOLAR SALES ASSESSOR [facility] Specimen Type Cap Fingerstick 2023 10:13 AM SOLAR SALES ASSESSOR [facility] Blood BLOOD SPECIMEN / Unknown 05/18/2024 9:20 AM SOLAR SALES ASSESSOR 05/18/2024 10:13 AM [employer] SALES ASSESSOR Manpreet Stuart MD LAB - POINT OF CARE ORDERABLES Performing Organization Address City/[facility]/ZIP Co de Phone Number [facility] [address] [place] [phone] * (ABNORMAL) GLUCOSE - POINT OF CARE (05/18/2024 7:42 AM SOLAR SALES ASSESSOR) Glucose WB/POC 197(H) 70 - 99 mg/dL 05/18/2024 7:56 AM SOLAR SALES ASSESSOR [facility] Specimen Type Cap Fingerstick 2023 7:56 AM SOLAR SALES ASSESSOR [facility] Blood BLOOD SPECIMEN / Unknown 05/18/2024 7:42 AM SOLAR SALES ASSESSOR 05/18/2024 7:56 AM [employer] SALES ASSESSOR Manpreet Stuart MD LAB - POINT OF CARE ORDERABLES Performing Organization Address City/[facility] Co de Phone Number [facility] [address] [place] [phone] * (ABNORMAL) RENAL FUNCTION PANEL (05/18/2024 3:38 AM SOLAR SALES ASSESSOR) Glucose 233(H) 70 - 99 mg/dL 05/18/2024 5:01 AM SOLAR SALES ASSESSOR [facility] Sodium 136 136 - 145 mmol/L 05/18/2024 5:01 AM SOLAR SALES ASSESSOR [facility] Potassium 4.7 3.5 - 5.1 mmol/L 05/18/2024 5:01 AM [facility] Chloride 111(H) 98 - 107 mmol/L 05/18/2024 5:01 AM [facility] CO2 21(L) 22 - 29 mmol/L 05/18/2024 5:01 AM [facility] Calcium 8.1(L) 8.4 - 10.4 mg/dL 05/18/2024 5:01 AM [facility] Anion Gap 4(L) 6 - 16 mmol/L 05/18/2024 5:01 AM [facility] BUN 35(H) 5.3 - 18.7 mg/dL 05/18/2024 5:01 AM [facility] Creatinine 1.62(H) 0.72 - 1.25 mg/dL 05/18/2024 5:01 AM [facility] Albumin 1.5(L) 3.4 - 5.0 gm/dL 05/18/2024 5:01 AM [facility] Phosphorus 3.3 2.5 - 4.5 mg/dL 05/18/2024 5:01 AM [facility] eGFR by CKD-EPI 53(L) >=90 mL/min/1.7 3 m2 05/18/2024 5:01 AM [facility] Blood BLOOD SPECIMEN / Unknown Lab Venipuncture / Unknown 05/18/2024 3:38 AM [employer] SALES ASSESSOR 05/18/2024 4:[address] [facility] Manpreet Stuart MD LAB - CHEMISTRY MELIDA COLLINS [facility] Organization Address [facility] Co de Phone Number [facility] [address] [place] [address] * (ABNORMAL) CBC W/O DIFFERENTIAL (05/18/2024 3:38 AM [employer] SALES ASSESSOR) WBC 14.5(H) 4.0 - 10.7 x10E9/L 05/18/2024 4:40 AM [facility] RBC Count 2.76(L) 4.30 - 5.80 x10E12/L 05/18/2024 4:40 AM [facility] Hemoglobin 7.7(L) 13.3 - 17.5 g/dL 05/18/2024 4:40 AM [facility] Hematocrit 24.7(L) 38.7 - 51.1 % 05/18/2024 4:40 AM [facility] MCV 89.5 80.0 - 98.0 fL 05/18/2024 4:40 AM [facility] MCH 27.9 26.7 - 33.6 pg 05/18/2024 4:40 AM [facility] MCHC 31.2(L) 31.7 - 36.3 g/dL 05/18/2024 4:40 AM [employer] SALES ASSESSOR [facility] RDW-CV 13.8 11.3 - 14.8 % 05/18/2024 4:40 AM SOLAR SALES ASSESSOR [facility] Platelet Count 330 150 - 420 x10E9/L 05/18/2024 4:40 AM [employer]AR SALES ASSESSOR [facility] MPV 8.6 7.8 - 11.4 fL 05/18/2024 4:40 AM SOLAR SALES ASSESSOR [facility] Blood BLOOD SPECIMEN / Unknown Lab Venipuncture / Unknown 05/18/2024 3:38 AM [employer] SALES ASSESSOR 05/18/2024 4:20 AM [employer] SAL[employer]ESSOR Manpreet Stuart MD LAB - HEMATOLOGY ORD ERABLES Performing Organization Address City/[facility] Co de Phone Number [facility] [address] [place] [phone] * (ABNORMAL) GLUCOSE - POINT OF CARE (05/17/2024 11:12 PM [employer] SALES ASSESSOR) Glucose WB/POC 246(H) 70 - 99 mg/dL 05/18/2024 4:44 AM SOLAR SALES ASSESSOR [facility] Specimen Type Cap Fingerstick 2023 4:44 AM SOLAR SALES ASSESSOR [facility] Blood BLOOD SPECIMEN / Unknown 05/17/2024 11:12 PM [employer] SALES ASSESSOR 05/18/2024 4:44 AM [employer] SAL[employer] ASSESSOR Manpreet Stuart MD LAB - POINT OF CARE ORDERABLES Performing Organization Address City/[facility] Co de Phone Number [facility] [address] [place] [phone] * (ABNORMAL) GLUCOSE - POINT OF CARE (05/17/2024 10:29 PM [employer] SALES ASSESSOR) Glucose WB/POC 252(H) 70 - 99 mg/dL 05/20/2024 8:25 AM SOLAR SALES ASSESSOR [facility] Specimen Type Cap Fingerstick 2023 8:25 AM SOLAR SALES ASSESSOR [facility] Blood BLOOD SPECIMEN / Unknown 05/17/2024 10:29 PM [employer]AR SALES ASSESSOR 05/20/2024 8:25 AM [employer] SALES ASSESSOR Manpreet Stuart MD LAB - POINT OF CARE ORDERABLES Performing Organization Address [facility] Co de Phone Number [facility] [address] [place] [phone] * (ABNORMAL) GLUCOSE - POINT OF CARE (05/17/2024 6:02 PM SOLAR SALES ASSESSOR) Glucose WB/POC 236(H) 70 - 99 mg/dL 05/20/2024 8:25 AM SOLAR SALES ASSESSOR [facility] Specimen Type Cap Fingerstick 2023 8:25 AM SOLAR SALES ASSESSOR [facility] Blood BLOOD SPECIMEN / Unknown 05/17/2024 6:02 PM SOLAR SALES ASSESSOR 05/20/2024 8:25 AM [employer] SALES ASSESSOR Manpreet Stuart MD LAB - POINT OF CARE ORDERABLES Performing Organization Address [facility] de Phone Number [facility] [address] [place] [phone] * (ABNORMAL) PROTEIN CREATININE RATIO URINE RANDOM PNL (05/17/2024 1:14 PM [employer]AR SALES ASSESSOR) Protein Urine 54.6(H) <11.9 mg/dL 05/17/2024 1:53 PM [employer]AR SALES ASSESSOR [facility] Creatinine Urine 77.41 mg/dL 05/17/2024 1:53 PM SOLAR SALES ASSESSOR [facility] Protein/Creatin ine Ratio Urine 0.71 05/17/2024 1:53 PM SOLAR SALES ASSESSOR [facility] Urine URINE SPECIMEN OBTAINED BY CLEAN CATCH PROCEDURE / Unknown Collection / Unknown 05/17/2024 1:14 PM [employer] SALES ASSESSOR 05/17/2024 1:31 PM [employer] SALES ASSESSOR Katerina Weaver DO LAB - URINE CHEMISTR Y ORDERABLES Performing Organization Address [facility] Co de Phone Number [facility] [address] [place] [phone] * VAS Arterial Ankle Arm Index (05/17/2024 12:04 PM [employer] SALES ASSESSOR) Anatomical Region Laterality Modality Ankle / Foot, Upper Extremity Ul trasound 05/17/2024 11:1 9 AM [employer] SALES ASSESSOR Narrative Procedure Note Gerry Villalobos MD - 05/17/2024 [place] [id number] Lower Extremity Arterial Doppler Report Pat.Name: RENE HYATT Pat.ID: [id number] .Date: 05/17/2024 Exam Time: 11:19:00 AM Study Type:MONO/PVR Age: 11 1980,43Y Sex: MALE Sonogrphr: Marina Calderón RVT, [facility] Pat. Stat.:Inpatient Reason for Study: Left foot wound for months, little improvement History / Clinical: Hypertension, Diabetes, Morbid obesity Procedures: Ankle Arm Index Visit ID: [id number] ++++++++++++++++++++++++++++++++++++ SUMMARY: ++++++++++++++++++++++++++++++++++++ No evidence for significant [...] (DP) MONO (DP) 1.2 Right MONO (PT) OMNO (PT) 1.2 Right Ankle DP AnkleDP P [...] - POINT OF CARE (05/17/2024 11:57 AM SOLAR SALES ASSESSOR) [facility] Glucose WB/POC 236(H) 70 - 99 mg/dL 05/17/2024 12:44 PM SOLAR SALES ASSESSOR [facility] Specimen Type Cap Fingerstick 2023 12:44 PM [facility] Blood BLOOD SPECIMEN / Unknown 05/17/2024 11:57 AM [employer] SALES ASSESSOR 05/17/2024 12:44 PM [employer]ESS[employer] Manpreet Stuart MD LAB - POINT OF CARE ORDERABLES [facility] [address] [place] [address] * (ABNORMAL) CBC W/O DIFFERENTIAL (05/17/2024 9:46 AM SOLAR SALES ASSESSOR) Pathologist [facility] WBC 15.5(H) 4.0 - 10.7 x10E9/L 05/17/2024 10:02 AM [facility] RBC Count 2.57(L) 4.30 - 5.80 x10E12/L 05/17/2024 10:02 AM SOLAR SALES ASSESSOR [facility] Hemoglobin 7.1(L) 13.3 - 17.5 g/dL 05/17/2024 10:02 AM [facility] Hematocrit 23.2(L) 38.7 - 51.1 % 05/17/2024 10:02 AM [facility] MCV 90.3 80.0 - 98.0 fL 05/17/2024 10:02 AM [facility] MCH 27.6 26.7 - 33.6 pg 05/17/2024 10:02 AM [facility] MCHC 30.6(L) 31.7 - 36.3 g/dL 05/17/2024 10:02 AM [facility] RDW-CV 14.0 11.3 - 14.8 % 05/17/2024 10:02 AM [facility] Platelet Count 284 150 - 420 x10E9/L 05/17/2024 10:02 AM [facility] MPV 8.6 7.8 - 11.4 fL 05/17/2024 10:02 AM [facility] Blood BLOOD SPECIMEN / Unknown Lab Venipuncture / Unknown 05/17/2024 9:46 AM [employer] SALES ASSESSOR 05/17/2024 9:54 AM [employer] SALES ASSESSOR Manpreet Stuart MD LAB - HEMATOLOGY ORD ERABLES [facility] [address] [place] [address] [phone] * (ABNORMAL) GLUCOSE - POINT OF CARE (05/17/2024 7:57 AM SOLAR SALES ASSESSOR) [facility] Glucose WB/POC 254(H) 70 - 99 mg/dL 05/27/2024 7:26 PM [facility] Specimen Type Cap Fingerstick 2023 7:26 PM [facility] Blood BLOOD SPECIMEN / Unknown 05/17/2024 7:57 AM [employer] SALES ASSESSOR 05/27/2024 7:26 PM [employer] SALES ASSESSOR Manpreet Stuart MD LAB - POINT OF CARE ORDERABLES [facility] [address] [place] [phone] * COMPLEMENT C4 (05/17/2024 5:00 AM SOLAR SALES ASSESSOR) Complement C4 19 15 - 57 mg/dL 05/17/2024 10:52 AM SOLAR SALES ASSESSOR [facility] Blood BLOOD SPECIMEN / Unknown Lab Venipuncture / Unknown 05/17/2024 5:00 AM [employer]AR SALES ASSESSOR 05/17/2024 5:57 AM [employer]AR SALES ASSESSOR Katerina Weaver DO LAB - SEROLOGY ORDER [facility] [address] [place] [id number], [facility] [phone] * COMPLEMENT C3 (05/17/2024 5:00 AM SOLAR SALES ASSESSOR) Complement C3 100 82 - 193 mg/dL 05/17/2024 10:52 AM [facility] Blood BLOOD SPECIMEN / Unknown Lab Venipuncture / Unknown 05/17/2024 5:00 AM SOLAR SALES ASSESSOR 05/17/2024 5:57 AM [employer]AR SALES ASSESSOR Katerina Weaver DO LAB - CHEMISTRY ORDE RABLES [address] [id number], [facility] [phone] * (ABNORMAL) BASIC METABOLIC PANEL (CALCIUM TOTAL) (05/17/2024 5:00 AM SOLAR SALES ASSESSOR) Glucose 207(H) 70 - 99 mg/dL 05/17/2024 6:26 AM [facility] Sodium 135(L) 136 - 145 mmol/L 05/17/2024 6:26 AM [facility] Potassium 4.2 3.5 - 5.1 mmol/L 05/17/2024 6:26 AM [facility] Chloride 107 98 - 107 mmol/L 05/17/2024 6:26 AM [facility] CO2 20(L) 22 - 29 mmol/L 05/17/2024 6:26 AM [facility] Calcium 7.9(L) 8.4 - 10.4 mg/dL 05/17/2024 6:26 AM [facility] Anion Gap 8 6 - 16 mmol/L 05/17/2024 6:26 AM SOLAR SALES ASSESSOR [facility] BUN 37(H) 5.3 - 18.7 mg/dL 05/17/2024 6:26 AM SOLAR SALES ASSESSOR [facility] Creatinine 1.83(H) 0.72 - 1.25 mg/dL 05/17/2024 6:26 AM SOLAR SALES ASSESSOR [facility] eGFR by CKD-EPI 46(L) >=90 mL/min/1.7 3 m2 05/17/2024 6:26 AM SOLAR SALES ASSESSOR [facility] Blood BLOOD SPECIMEN / Unknown Lab Venipuncture / Unknown 05/17/2024 5:00 AM [employer]AR SALES ASSESSOR 05/17/2024 5:57 AM [employer] SALES ASSESSOR Katerina Weaver DO LAB - CHEMISTRY MELIDA COLLINS [facility] [address] [place], [place] [phone] * (ABNORMAL) GLUCOSE - POINT OF CARE (05/16/2024 9:36 PM SOLAR SALES ASSESSOR) Glucose WB/POC 317(H) 70 - 99 mg/dL 05/26/2024 8:46 PM SOLAR SALES ASSESSOR [facility] Specimen Type Arterial 05/26/2024 8:46 PM SOLAR SALES ASSESSOR [facility] Blood BLOOD SPECIMEN / Unknown 05/16/2024 9:36 PM [employer]AR SALES ASSESSOR 05/26/2024 8:46 PM [employer]AR SALES ASSESSOR Zana Tolentino MD LAB - POINT OF CARE ORDERABLES [facility] [address] [place] [address] [phone] * (ABNORMAL) GLUCOSE - POINT OF CARE (05/16/2024 6:18 PM SOLAR SALES ASSESSOR) Glucose WB/POC 231(H) 70 - 99 mg/dL 05/27/2024 7:26 PM SOLAR SALES ASSESSOR [facility] Specimen Type Cap Fingerstick 2023 7:26 PM SOLAR SALES ASSESSOR [facility] Blood BLOOD SPECIMEN / Unknown 05/16/2024 6:18 PM SOLAR SALES ASSESSOR 05/27/2024 7:26 PM SOLAR SALES ASSESSOR Zana Tolentino MD LAB - POINT OF CARE ORDERABLES [facility] [address] [place] [phone] * MRI Foot Left Wo Contrast (05/16/2024 5:20 PM SOLAR SALES ASSESSOR) Anatomical Region Laterality Modality Ankle / Foot Magnetic Resonan ce 05/17/2024 8:48 AM SOLAR SALES ASSESSOR Impressions 05/17/2024 9:04 AM SOLAR SALES ASSESSOR IMPRESSION: 1. ??Large soft tissue wound//debridement surrounding the calcaneus and extending to bone. 2. ??There is mild osteomyelitis in the lateral calcaneal tubercle. ??However most of the calcaneal marrow changes are likely reactive. 3. ??No visible abscess. 4. ??Detached peroneal tendons. 5. ??Other findings as described > Interpreting Provider: Gila Licea MD on 05/17/2024 9:04 AM Narrative 05/17/2024 9:04 AM SOLAR SALES ASSESSOR PROCEDURE: ??MRI FOOT LEFT WO CONTRAST DATE/TIME [...] Licea MD on 05/17/2024 9:04 AM Zana Rajan [facility] MR ORDERABLES * (ABNORMAL) URINALYSIS REFLEX TO MICROSCOPIC NO CULTURE (05/16/2024 12:57 PM SOLAR SALES ASSESSOR) Color UA Yellow Yellow, Straw 05/16/2024 1:17 PM SOLAR SALES ASSESSOR [facility] Clarity UA Turbid(A) Clear 05/16/2024 1:17 PM SOLAR SALES ASSESSOR [facility] Glucose UA Normal Normal 05/16/2024 1:17 PM SOLAR SALES ASSESSOR [facility] Bilirubin UA Negative Negative 05/16/2024 1:17 PM SOLAR SALES ASSESSOR [facility] Ketone UA Trace(A) Negative 05/16/2024 1:17 PM SOLAR SALES ASSESSOR [facility] Specific [place] UA 1.016 1.005 - 1.030 05/16/2024 1:17 PM SOLAR SALES ASSESSOR [facility] Blood UA 2+(A) Negative 05/16/2024 1:17 PM SOLAR SALES ASSESSOR [facility] pH UA 5.5 5.0 - 9.0 pH 05/16/2024 1:17 PM SOLAR SALES ASSESSOR [facility] Protein UA 1+(A) Negative 05/16/2024 1:17 PM SOLAR SALES ASSESSOR [facility] Urobilinogen UA Normal Normal mg/dL 05/16/2024 1:17 PM SOLAR SALES ASSESSOR [facility] Nitrite UA Negative Negative 05/16/2024 1:17 PM SOLAR SALES ASSESSOR [facility] Leukocyte UA 75 MIKKI/uL(A) Negative 05/16/2024 1:17 PM SOLAR SALES ASSESSOR [facility] RBC UA None Seen 0 - 5 # /hpf 05/16/2024 1:17 PM SOLAR SALES ASSESSOR [facility] WBC UA 6-10(A) 0 - 5 # /hpf 05/16/2024 1:17 PM SOLAR SALES ASSESSOR [facility] Bacteria UA None Seen None Seen 05/16/2024 1:17 PM SOLAR SALES ASSESSOR [facility] Squamous Epithelial Cells 0-2 0 - 5 /hpf 05/16/2024 1:17 PM SOLAR SALES ASSESSOR [facility] Budding Yeast Few(A) None seen /hpf 05/16/2024 1:17 PM SOLAR SALES ASSESSOR [facility] Urine URINE SPECIMEN OBTAINED BY CLEAN CATCH PROCEDURE / Unknown Collection / Unknown 05/16/2024 12:57 PM SOLAR SALES ASSESSOR 05/16/2024 1:04 PM SOLAR SALES ASSESSOR Narrative [facility] - 05/16/2024 1:17 PM SOLAR SALES ASSESSOR Katerina Weaver DO LAB - URINALYSIS ORD ERABLES Performing Organization Address [facility]/ZIP Co de Phone Number [facility] [address] [place] [phone] * (ABNORMAL) GLUCOSE - POINT OF CARE (05/16/2024 11:07 AM SOLAR SALES ASSESSOR) Glucose WB/POC 208(H) 70 - 99 mg/dL 05/16/2024 12:12 PM SOLAR SALES ASSESSOR [facility] Specimen Type Cap Fingerstick 2023 12:12 PM SOLAR SALES ASSESSOR [facility] Blood BLOOD SPECIMEN / Unknown 05/16/2024 11:07 AM SOLAR SALES ASSESSOR 05/16/2024 12:12 PM SOLAR SALES ASSESSOR Zana Tolentino MD LAB - POINT OF CARE ORDERABLES Performing Organization Address [facility] Co de Phone Number [facility] [address] [place] [phone] * (ABNORMAL) VANCOMYCIN LEVEL PEAK (05/16/2024 9:04 AM SOLAR SALES ASSESSOR) Vancomycin Peak 40.3(H) 25.0 - 40.0 ug/mL 05/16/2024 9:26 AM SOLAR SALES ASSESSOR [facility] Blood BLOOD SPECIMEN / Unknown Lab Venipuncture / Unknown 05/16/2024 9:04 AM SOLAR SALES ASSESSOR 05/16/2024 9:06 AM SOLAR SALES ASSESSOR Hattie Liao MD LAB - CHEMISTRY MELIDA COLLINS Performing Organization Address City/[facility]/ZIP Co de Phone Number [facility] [address] [place] [phone] * (ABNORMAL) GLUCOSE - POINT OF CARE (05/16/2024 7:53 AM SOLAR SALES ASSESSOR) Glucose WB/POC 222(H) 70 - 99 mg/dL 05/16/2024 8:08 AM [facility] Specimen Type Cap Fingerstick 2023 8:08 AM [facility] Blood BLOOD SPECIMEN / Unknown 05/16/2024 7:53 AM SOLAR SALES ASSESSOR 05/16/2024 8:07 AM SOLAR SALES ASSESSOR Zana Tolentino MD LAB - POINT OF CARE ORDERABLES Performing Organization Address City/[facility]/ZIP Co de Phone Number [facility] [address] [place], [place] [phone] * (ABNORMAL) DIFFERENTIAL MANUAL (05/16/2024 3:09 AM SOLAR SALES ASSESSOR) Pathologist [facility] Neutrophil % 88(H) 41 - 74 % 05/16/2024 4:51 AM [facility] Lymphocyte % 7(L) 17 - 47 % 05/16/2024 4:51 AM [facility] Monocyte % 4 3 - 11 % 05/16/2024 4:51 AM [facility] Myelocyte % 1(H) 0% % 05/16/2024 4:51 AM [facility] Neutrophil Absolute 19.10(H) 1.60 - 7.50 x10E9/L 05/16/2024 4:51 AM [facility] Lymphocyte Absolute 1.52 1.00 - 4.40 x10E9/L 05/16/2024 4:51 AM [facility] Monocyte Absolute 0.87 0.15 - 1.00 x10E9/L 05/16/2024 4:51 AM [facility] RBC Morphology NORMAL 05/16/2024 4:51 AM [facility] Platelet Morphology NORMAL 05/16/2024 4:51 AM [facility] Blood BLOOD SPECIMEN / Unknown Lab Venipuncture / Unknown 05/16/2024 3:09 AM [employer] 05/16/2024 4:09 AM [employer] Nicanor Richter MD LAB - HEMATOLOGY ORDERABLES [facility] [address] [place] [address] * (ABNORMAL) RENAL FUNCTION PANEL (05/16/2024 3:[address] [facility]) Glucose 185(H) 70 - 99 mg/dL 05/16/2024 4:44 AM [facility] Sodium 133(L) 136 - 145 mmol/L 05/16/2024 4:44 AM [facility] Potassium 4.2 3.5 - 5.1 mmol/L 05/16/2024 4:44 AM [facility] Chloride 107 98 - 107 mmol/L 05/16/2024 4:44 AM [facility] CO2 19(L) 22 - 29 mmol/L 05/16/2024 4:44 AM [facility] Calcium 8.0(L) 8.4 - 10.4 mg/dL 05/16/2024 4:44 AM [facility] Anion Gap 7 6 - 16 mmol/L 05/16/2024 4:44 AM [facility] BUN 35(H) 5.3 - 18.7 mg/dL 05/16/2024 4:44 AM [facility] Creatinine 2.01(H) 0.72 - 1.25 mg/dL 05/16/2024 4:44 AM [facility] Albumin 1.4(L) 3.4 - 5.0 gm/dL 05/16/2024 4:44 AM [facility] Phosphorus 4.5 2.5 - 4.5 mg/dL 05/16/2024 4:44 AM [facility] eGFR by CKD-EPI 41(L) >=90 mL/min/1.7 3 m2 05/16/2024 4:44 AM [facility] Blood BLOOD SPECIMEN / Unknown Lab Venipuncture / Unknown 05/16/2024 3:09 AM [employer] 05/16/2024 4:[address] [facility] Nicanor Richter MD LAB - CHEMISTRY ORDERABLES [facility] [address] [place], [place] [id number] * (ABNORMAL) CBC W AUTO DIFFERENTIAL (05/16/2024 3:[address] [facility]) WBC 21.7(H) 4.0 - 10.7 x10E9/L 05/16/2024 4:51 AM [facility] RBC Count 2.62(L) 4.30 - 5.80 x10E12/L 05/16/2024 4:51 AM [facility] Hemoglobin 7.3(L) 13.3 - 17.5 g/dL 05/16/2024 4:51 AM [facility] Hematocrit 23.6(L) 38.7 - 51.1 % 05/16/2024 4:51 AM [facility] MCV 90.1 80.0 - 98.0 fL 05/16/2024 4:51 AM [facility] MCH 27.9 26.7 - 33.6 pg 05/16/2024 4:51 AM [facility] MCHC 30.9(L) 31.7 - 36.3 g/dL 05/16/2024 4:51 AM [facility] RDW-CV 13.9 11.3 - 14.8 % 05/16/2024 4:51 AM [facility] Platelet Count 300 150 - 420 x10E9/L 05/16/2024 4:51 AM [facility] MPV 9.3 7.8 - 11.4 fL 05/16/2024 4:51 AM [facility] Blood BLOOD SPECIMEN / Unknown Lab Venipuncture / Unknown 05/16/2024 3:09 AM [employer] 05/16/2024 4:[address] [facility] Nicanor Richter MD LAB - HEMATOLOGY ORDERABLES [facility] [address] [place] [address] * (ABNORMAL) GLUCOSE - POINT OF CARE (05/15/2024 8:[address] [facility]) Pathologist [facility] Glucose WB/POC 171(H) 70 - 99 mg/dL 05/20/2024 8:25 AM [facility] Specimen Type Arterial 05/20/2024 8:25 AM [facility] Blood BLOOD SPECIMEN / Unknown 05/15/2024 8:43 PM SOLAR SALES ASSESSOR 05/20/2024 8:25 AM SOLAR SALES ASSESSOR Zana Tolentino MD LAB - POINT OF CARE ORDERABLES [facility] [address] [place] [address] * (ABNORMAL) GLUCOSE - POINT OF CARE (05/15/2024 6:01 PM SOLAR SALES ASSESSOR) Pathologist [facility] Glucose WB/POC 179(H) 70 - 99 mg/dL 05/15/2024 8:26 PM SOLAR SALES ASSESSOR [facility] Specimen Type Cap Fingerstick 2023 8:26 PM SOLAR SALES ASSESSOR [facility] Blood BLOOD SPECIMEN / Unknown 05/15/2024 6:01 PM SOLAR SALES ASSESSOR 05/15/2024 8:26 PM SOLAR SALES ASSESSOR Zana Tolentino MD LAB - POINT OF CARE ORDERABLES Performing Organization Address City/[facility] Co de Phone Number [facility] [address] [place] [phone] * XR Foot Left 2Vw (05/15/2024 5:31 PM SOLAR SALES ASSESSOR) Anatomical Region Laterality Modality Ankle / Foot Radiographic Haylee ging 05/16/2024 7:16 AM SOLAR SALES ASSESSOR Impressions 05/16/2024 9:15 AM SOLAR SALES ASSESSOR IMPRESSION: Ulceration versus surgical debridement of the posterior plantar soft tissue of the foot and calcaneus. Report drafted by Ketan Meier MD (outside residential sales professional) I, Gila Licea MD have personally reviewed and interpreted this examination/study. > Interpreting Provider: Gila Licea MD on 05/16/2024 9:15 AM Narrative 05/16/2024 9:15 AM SOLAR SALES ASSESSOR EXAMINATION: XR FOOT LEFT 2VW HISTORY: L08.9: [...] calcaneus. Report drafted by Ketan Meier MD (outside residential sales professional) I, Gila Licea MD have personally reviewed and interpreted this examination/study. > Interpreting Provider: Gila Licea MD on 05/16/2024 9:15 AM Abby Quinn DPM DIAGNOSTIC IMAGING O RDERABLES * (ABNORMAL) GLUCOSE - POINT OF CARE (05/15/2024 5:06 PM SOLAR SALES ASSESSOR) [facility] Glucose WB/POC 191(H) 70 - 99 mg/dL 05/16/2024 7:35 AM SOLAR SALES ASSESSOR [facility] Specimen Type Cap Fingerstick 2023 7:35 AM SOLAR SALES ASSESSOR [facility] Blood BLOOD SPECIMEN / Unknown 05/15/2024 5:06 PM SOLAR SALES ASSESSOR 05/16/2024 7:35 AM SOLAR SALES ASSESSOR Zana Tolentino MD LAB - POINT OF CARE ORDERABLES [facility] [address] [place] [address] * (ABNORMAL) CULTURE TISSUE+GRAM STAIN (05/15/2024 4:34 PM SOLAR SALES ASSESSOR) Pathologist [facility] Culture Rare Streptococcus agalactiae (Group B)(AA) 05/18/2024 11:57 PM SOLAR SALES ASSESSOR [facility] MICROBIOLOGY Gram Stain Rare Polymorphonuclear cells 05/18/2024 11:57 PM SOLAR SALES ASSESSOR [facility] MICROBIOLOGY Gram Stain No organisms seen 024 11:57 PM SOLAR SALES ASSESSOR [facility] MICROBIOLOGY Microbiology ENTIRE FOOT / Unknown 05/15/2024 4:34 PM SOLAR SALES ASSESSOR 05/15/2024 8:29 PM SOLAR SALES ASSESSOR Narrative [facility] MICROBIOLOGY - 05/18/2024 11:57 PM SOLAR SALES ASSESSOR Susceptibility testing of penicillin, other beta-lactam antibiotics, and vancomycin is not necessary for beta-hemolytic streptococci groups A,B,C and G because resistant strains have not been recognized. Surgical Description: Left Foot Abby DUONG LAB - MICROBIOLOGY O EMILY Performing Organization Address City/[facility]/ZIP Co de Phone Number [facility] MICROBIOLOGY [address] [place] [address], [facility] [phone] * (ABNORMAL) CULTURE ANAEROBE (05/15/2024 4:34 PM SOLAR SALES ASSESSOR) Culture Rare Prevotella bergensis(A) JEFF 05/20/2024 9:23 AM SOLAR SALES ASSESSOR [facility] MICROBIOLOGY Comment:Beta-lactamase posit micah Culture Light Parvimonas micra(A) 05/20/2024 9:23 AM SOLAR SALES ASSESSOR [facility] MICROBIOLOGY Microbiology ENTIRE FOOT / Unknown 05/15/2024 4:34 PM SOLAR SALES ASSESSOR 05/15/2024 8:29 PM SOLAR SALES ASSESSOR Narrative [facility] MICROBIOLOGY - 05/20/2024 9:23 AM SOLAR SALES ASSESSOR Surgical Description: Left Foot Abby DUONG LAB - MICROBIOLOGY O EMILY [facility] MICROBIOLOGY [address] [place] [address], [facility] [phone] * (ABNORMAL) CULTURE TISSUE+GRAM STAIN (05/15/2024 4:33 PM SOLAR SALES ASSESSOR) Culture Heavy Morganella morganii(AA) JEFF 05/19/2024 6:31 AM SOLAR SALES ASSESSOR [facility] MICROBIOLOGY Culture Heavy Streptococcus agalactiae (Group B)(AA) 05/19/2024 6:31 AM [facility] MICROBIOLOGY Culture Rare Proteus vulgaris(AA) JEFF 05/19/2024 6:31 AM [facility]CROBIOLOG[facility] Gram Stain Heavy Polymorphonuclear cells(AA) 05/19/2024 6:31 AM [facility]CROBIOLOG[facility] Gram Stain Heavy Gram-positive cocci(AA) 05/19/2024 6:31 AM [facility]CROBIOLOG[facility] Gram Stain Heavy Gram-variable bacilli(AA) 05/19/2024 6:31 AM [facility] MICROBIOLOG[facility] Microbiology ENTIRE FOOT / Unknown 05/15/2024 4:33 PM SOLAR SALES ASSESSOR 05/15/2024 8:29 PM SOLAR SALES ASSESSOR Narrative [facility] MICROBIOLOGY - 05/19/2024 6:[address] [facility] Susceptibility testing of penicillin, other beta-lactam [...] vulgaris Trimethoprim-sulfamethoxazole JEFF <=20 ug/mL: Susceptible Abby DUONGM LAB - MICROBIOLOGY O EMILY Performing Organization Address [facility] de Phone Number [facility] MICROBIOLOGY [address] [place] [address], [facility] [phone] * (ABNORMAL) CULTURE ANAEROBE (05/15/2024 4:33 PM SOLAR SALES ASSESSOR) Culture Heavy Parvimonas micra(A) JEFF 05/20/2024 9:23 AM SOLAR SALES ASSESSOR [facility] NET[facility] MICROBIOLOGY Culture Heavy Prevotella bergensis(A) 05/20/2024 9:23 AM SOLAR SALES ASSESSOR [facility]CRO[facility] Comment:Beta-lactamase posit micah Microbiology ENTIRE FOOT / Unknown 05/15/2024 4:33 PM SOLAR SALES ASSESSOR 05/15/2024 8:29 PM SOLAR SALES ASSESSOR Narrative [facility]CRO[facility] - 05/20/2024 9:23 AM SOLAR SALES ASSESSOR Surgical Description: Calcaneus Bone Left Foot Abby Quinn DPM LAB - MICROBIOLOGY O EMILY Performing Organization Address [facility] de Phone Number [facility] MICROBIOLOGY [address] [place] [address], [facility] [phone] * PATHOLOGY TISSUE EXAM (STL) (05/15/2024 4:29 PM SOLAR SALES ASSESSOR) Case Report Surgical Pathology Report ? Case: [id number] ? Authorizing Provider: ??Abby Quinn DPM ? Collected: ? 05/15/2024 04:29 PM ? Ordering Location: ? [facility] ?Received: ?05/16/2024 08:13 AM ? Pathologist: ? Kaci Mayo MD ? Specimen: ?Bone Debridement, Calcaneus Bone Left Foot ? 05/18/2024 10:44 AM [facility] Final Diagnosis Bone, left calcaneus, debridement - Focal acute osteomyelitis 05/18/2024 10:44 AM [facility] Clinical History The patient is a 43-year-old man with left foot infection. Operative procedure: irrigation/debridemen t of foot/ankle. 05/18/2024 10:44 AM [facility] Gross Description The requisition [...] A1, following decalcification. MB 05/18/2024 10:44 AM [facility] Microscopic Description Microscopic examination substantiates the above diagnosis. 05/18/2024 10:44 AM [facility] Pathologist Location at [facility] 05/18/2024 10:44 AM [facility] Disclaimer All histochemical and/or immunohistochemical results are interpreted with controls that demonstrate appropriate staining reactions before reporting results. Note on use of immunocytochemistry reagents: This test was developed and its performance characteristic determined by [facility], Department of Laboratory Medicine. It has not [...] be interpreted with caution. 05/18/2024 10:44 AM SOLAR SALES ASSESSOR [facility] Embedded Images 05/18/2024 10:44 AM SOLAR SALES ASSESSOR [facility] Pathology/Cytolo gy DEBRIDEMENT OF BONE / Unknown 05/15/2024 4:29 PM SOLAR SALES ASSESSOR 05/16/2024 8:13 AM SOLAR SALES ASSESSOR Abby Quinn DPM LAB - PATHOLOGY/CYTO LOGY ORDERABLES Performing Organization Address City/[facility]/ZIP Co de Phone Number [facility] [address] [place], [place] [phone] * (ABNORMAL) GLUCOSE - POINT OF CARE (05/15/2024 1:31 PM SOLAR SALES ASSESSOR) Glucose WB/POC 177(H) 70 - 99 mg/dL 05/27/2024 7:26 PM SOLAR SALES ASSESSOR [facility] Specimen Type Cap Fingerstick 2023 7:26 PM SOLAR SALES ASSESSOR [facility] Blood BLOOD SPECIMEN / Unknown 05/15/2024 1:31 PM SOLAR SALES ASSESSOR 05/27/2024 7:26 PM SOLAR SALES ASSESSOR Zana Tolentino MD LAB - POINT OF CARE ORDERABLES Performing Organization Address City/[facility]/ZIP Co de Phone Number [facility] [address] [place] [phone] * (ABNORMAL) GLUCOSE - POINT OF CARE (05/15/2024 7:50 AM SOLAR SALES ASSESSOR) Glucose WB/POC 239(H) 70 - 99 mg/dL 05/15/2024 8:11 AM SOLAR SALES ASSESSOR [facility] Specimen Type Cap Fingerstick 2023 8:11 AM SOLAR SALES ASSESSOR [facility] Blood BLOOD SPECIMEN / Unknown 05/15/2024 7:50 AM SOLAR SALES ASSESSOR 05/15/2024 8:11 AM SOLAR SALES ASSESSOR Zana Tolentino MD LAB - POINT OF CARE ORDERABLES [facility] [address] [place], [place] [id number] * (ABNORMAL) DIFFERENTIAL MANUAL (05/15/2024 12:13 AM SOLAR SALES ASSESSOR) Neutrophil % 82(H) 41 - 74 % 05/15/2024 1:28 AM SOLAR SALES ASSESSOR [facility] Lymphocyte % 9(L) 17 - 47 % 05/15/2024 1:28 AM [facility] Monocyte % 6 3 - 11 % 05/15/2024 1:28 AM [facility] Eosinophil % 2 0 - 7 % 05/15/2024 1:28 AM [facility] Metamyelocyte % 1(H) 0% % 1:28 AM [facility] Neutrophil Absolute 20.58(H) 1.60 - 7.50 x10E9/L 05/15/2024 1:28 AM [facility] Lymphocyte Absolute 2.26 1.00 - 4.40 x10E9/L 05/15/2024 1:28 AM [facility] Monocyte Absolute 1.51(H) 0.15 - 1.00 x10E9/L 05/15/2024 1:28 AM [facility] Eosinophil Absolute 0.50 0.00 - 0.60 x10E9/L 05/15/2024 1:28 AM [facility] RBC Morphology REVIEWED 05/15/2024 1:28 AM [facility] Microcytosis MODERATE(A) (none) 05/15/2024 1:28 AM [facility] Blood BLOOD SPECIMEN / Unknown Lab Venipuncture / Unknown 05/15/2024 12:13 AM SOLAR SALES ASSESSOR 05/15/2024 12:[address] [facility] Nicanor Richter MD LAB - HEMATOLOGY ORDERABLES [facility] [address] [place], [place] [id number] * VANCOMYCIN LEVEL TROUGH (05/15/2024 12:13 AM SOLAR SALES ASSESSOR) Vancomycin Trough 18.2 10.0 - 20.0 ug/mL 05/15/2024 12:52 AM [facility] Blood BLOOD SPECIMEN / Unknown Lab Venipuncture / Unknown 05/15/2024 12:13 AM SOLAR SALES ASSESSOR 05/15/2024 12:23 AM SOLAR SALES ASSESSOR Hattie Liao MD LAB - CHEMISTRY MELIDA COLLINS [facility] Organization Address City/State/[facility] Co de Phone Number [facility] [address] [place] [phone] * (ABNORMAL) HEMOGLOBIN A1C (05/15/2024 12:13 AM SOLAR SALES ASSESSOR) Hemoglobin A1c 6.6(H) <5.7 % 05/15/2024 12:56 AM [facility] Estimated Average Glucose 143 mg/dL 05/15/2024 12:56 AM [facility] Blood BLOOD SPECIMEN / Unknown Lab Venipuncture / Unknown 05/15/2024 12:13 AM SOLAR SALES ASSESSOR 05/15/2024 12:23 AM SOLAR SALES ASSESSOR Narrative [facility] - 05/15/2024 12:56 AM SOLAR SALES ASSESSOR HbA1c Interpretation: Normal: < 5.7% Pre-diabetes: 5.7-6.4% [...] exceeds 5% in the specimen. The [employer] assay for the measurement of HbA1c is a National Glycohemoglobin Standardization Program (NGSP) certified method. Zana Tolentino MD LAB - CHEMISTRY MELIDA COLLINS [facility] [address] [place] [phone] * (ABNORMAL) RENAL FUNCTION PANEL (05/15/2024 12:13 AM SOLAR SALES ASSESSOR) Glucose 235(H) 70 - 99 mg/dL 05/15/2024 12:55 AM [facility] Sodium 132(L) 136 - 145 mmol/L 05/15/2024 12:55 AM [facility] Potassium 4.1 3.5 - 5.1 mmol/L 05/15/2024 12:55 AM [facility] Chloride 103 98 - 107 mmol/L 05/15/2024 12:55 AM [facility] CO2 22 22 - 29 mmol/L 05/15/2024 12:55 AM [facility] Calcium 8.2(L) 8.4 - 10.4 mg/dL 05/15/2024 12:55 AM [facility] Anion Gap 7 6 - 16 mmol/L 05/15/2024 12:55 AM [facility] BUN 31(H) 5.3 - 18.7 mg/dL 05/15/2024 12:55 AM [facility] Creatinine 1.69(H) 0.72 - 1.25 mg/dL 05/15/2024 12:55 AM [facility] Albumin 1.6(L) 3.4 - 5.0 gm/dL 05/15/2024 12:55 AM [facility] Phosphorus 3.3 2.5 - 4.5 mg/dL 05/15/2024 12:55 AM [facility] eGFR by CKD-EPI 51(L) >=90 mL/min/1.7 3 m2 05/15/2024 12:55 AM [facility] Blood BLOOD SPECIMEN / Unknown Lab Venipuncture / Unknown 05/15/2024 12:13 AM SOLAR SALES ASSESSOR 05/15/2024 12:[address] [facility] Nicanor Richter MD LAB - CHEMISTRY ORDERABLES [facility] [address] [place] [address] * (ABNORMAL) CBC W AUTO DIFFERENTIAL (05/15/2024 12:13 AM SOLAR SALES ASSESSOR) [facility] WBC 25.1(H) 4.0 - 10.7 x10E9/L 05/15/2024 1:28 AM [facility] RBC Count 2.76(L) 4.30 - 5.80 x10E12/L 05/15/2024 1:28 AM [facility] Hemoglobin 7.7(L) 13.3 - 17.5 g/dL 05/15/2024 1:28 AM [facility] Hematocrit 24.6(L) 38.7 - 51.1 % 05/15/2024 1:28 AM [facility] MCV 89.1 80.0 - 98.0 fL 05/15/2024 1:28 AM [facility] MCH 27.9 26.7 - 33.6 pg 05/15/2024 1:28 AM [facility] MCHC 31.3(L) 31.7 - 36.3 g/dL 05/15/2024 1:28 AM [facility] RDW-CV 13.8 11.3 - 14.8 % 05/15/2024 1:28 AM [facility] Platelet Count 334 150 - 420 x10E9/L 05/15/2024 1:28 AM [facility] MPV 8.7 7.8 - 11.4 fL 05/15/2024 1:28 AM [facility] Blood BLOOD SPECIMEN / Unknown Lab Venipuncture / Unknown 05/15/2024 12:13 AM SOLAR SALES ASSESSOR 05/15/2024 12:[address] [facility] Nicanor Richter MD LAB - HEMATOLOGY ORDERABLES [facility] [address] [place], [place] [phone] * (ABNORMAL) GLUCOSE - POINT OF CARE (05/14/2024 10:02 PM SOLAR SALES ASSESSOR) [facility] Glucose WB/POC 234(H) 70 - 99 mg/dL 05/14/2024 10:11 PM SOLAR SALES ASSESSOR [facility] Specimen Type Arterial 05/14/2024 10:11 PM SOLAR SALES ASSESSOR [facility] Blood BLOOD SPECIMEN / Unknown 05/14/2024 10:02 PM SOLAR SALES ASSESSOR 05/14/2024 10:11 PM SOLAR SALES ASSESSOR Zana Tolentino MD LAB - POINT OF CARE ORDERABLES Performing Organization Address [facility] Co de Phone Number [facility] [address] [place] [phone] * (ABNORMAL) PROTEIN CREATININE RATIO URINE RANDOM PNL (05/14/2024 5:31 PM SOLAR SALES ASSESSOR) Protein Urine 183.8(H) <11.9 mg/dL 05/14/2024 5:52 PM SOLAR SALES ASSESSOR [facility] Creatinine Urine 181.54 mg/dL 05/14/2024 5:52 PM SOLAR SALES ASSESSOR [facility] Protein/Creatin ine Ratio Urine 1.01 05/14/2024 5:52 PM SOLAR SALES ASSESSOR [facility] Urine URINE SPECIMEN OBTAINED BY CLEAN CATCH PROCEDURE / Unknown Collection / Unknown 05/14/2024 5:31 PM SOLAR SALES ASSESSOR 05/14/2024 5:36 PM SOLAR SALES ASSESSOR Zana Tolentino MD LAB - URINE CHEMISTR Y ORDERABLES Performing Organization Address [facility] Co de Phone Number [facility] [address] [place] [phone] * SODIUM URINE RANDOM (05/14/2024 5:31 PM SOLAR SALES ASSESSOR) Sodium Urine <20 mmol/L 05/14/2024 5:54 PM SOLAR SALES ASSESSOR [facility] Urine URINE SPECIMEN OBTAINED BY CLEAN CATCH PROCEDURE / Unknown Collection / Unknown 05/14/2024 5:31 PM SOLAR SALES ASSESSOR 05/14/2024 5:36 PM SOLAR SALES ASSESSOR Zana Tolentino MD LAB - URINE CHEMISTR Y ORDERABLES Performing Organization Address City/[facility] Co de Phone Number [facility] [address] [place] [phone] * VANCOMYCIN LEVEL PEAK (05/14/2024 5:06 PM SOLAR SALES ASSESSOR) Vancomycin Peak 25.0 25.0 - 40.0 ug/mL 05/14/2024 5:51 PM SOLAR SALES ASSESSOR [facility] Blood BLOOD SPECIMEN / Unknown Lab Venipuncture / Unknown 05/14/2024 5:06 PM SOLAR SALES ASSESSOR 05/14/2024 5:35 PM SOLAR SALES ASSESSOR Hattie Liao MD LAB - CHEMISTRY MELIDA COLLINS Performing Organization Address City/[facility]/ZIP Co de Phone Number [facility] [address] [place] [address] * (ABNORMAL) GLUCOSE - POINT OF CARE (05/14/2024 4:50 PM SOLAR SALES ASSESSOR) Pathologist [facility] Glucose WB/POC 234(H) 70 - 99 mg/dL 05/27/2024 7:26 PM SOLAR SALES ASSESSOR [facility] Specimen Type Arterial 05/27/2024 7:26 PM SOLAR SALES ASSESSOR [facility] Blood BLOOD SPECIMEN / Unknown 05/14/2024 4:50 PM SOLAR SALES ASSESSOR 05/27/2024 7:26 PM SOLAR SALES ASSESSOR Zana Tolentino MD LAB - POINT OF CARE ORDERABLES Performing Organization Address [facility] Co de Phone Number [facility] [address] [place] [phone] * US Retroperitoneal Complete (05/14/2024 2:17 PM SOLAR SALES ASSESSOR) Anatomical Region Laterality Modality Abdomen Ultrasound 05/14/2024 4:34 PM SOLAR SALES ASSESSOR Impressions 05/14/2024 4:35 PM SOLAR SALES ASSESSOR IMPRESSION: 1.Within normal limits. There is no evidence of hydronephrosis or medical renal disease. 2.The ureteral jets were not identified bilaterally during this study. > Interpreting Provider: Chintan Davey MD on 05/14/2024 4:35 PM Narrative 05/14/2024 4:35 PM SOLAR SALES ASSESSOR PROCEDURE: ??US RETROPERITONEAL COMPLETE DATE/TIME OF EXAM: [...] * EOSINOPHIL URINE SMEAR (05/14/2024 1:19 PM SOLAR SALES ASSESSOR) Eosinophils Urine NONE SEEN NONE SEEN 05/14/2024 2:59 PM SOLAR SALES ASSESSOR [facility] Urine URINE SPECIMEN OBTAINED BY CLEAN CATCH PROCEDURE / Unknown Collection / Unknown 05/14/2024 1:19 PM SOLAR SALES ASSESSOR 05/14/2024 1:32 PM SOLAR SALES ASSESSOR Zana Tolentino MD LAB - URINE CHEMISTR Y ORDERABLES Performing Organization Address City/State/[facility] Co de Phone Number [facility] [address] [place] [address] * (ABNORMAL) CULTURE WOUND+GRAM STAIN (05/14/2024 12:22 PM SOLAR SALES ASSESSOR) Culture Heavy Morganella morganii(A) JEFF 05/16/2024 6:46 PM SOLAR SALES ASSESSOR [facility]CROBI[facility] Culture Heavy Streptococcus agalactiae (Group B)(A) 05/16/2024 6:46 PM SOLAR SALES ASSESSOR [facility] MICROBIOLOG[facility] Culture Heavy normal skin jero 05/16/2024 6:46 PM SOLAR SALES ASSESSOR [facility] Gram Stain Rare Polymorphonuclear cells 05/16/2024 6:46 PM SOLAR SALES ASSESSOR [facility] MICROBIOLOGY Gram Stain Heavy Gram-positive cocci 05/16/2024 6:46 PM SOLAR SALES ASSESSOR [facility] MICROBIOLOG[facility] Gram Stain Light Gram-positive bacilli 05/16/2024 6:46 PM SOLAR SALES ASSESSOR [facility] MICROBIOLOG[facility] Gram Stain Moderate Gram-negative bacilli 05/16/2024 6:46 PM SOLAR SALES ASSESSOR [facility] MICROBIOLOGY Microbiology SPECIMEN FROM WOUND / Unknown Collection / Unknown 05/14/2024 12:22 PM SOLAR SALES ASSESSOR 05/14/2024 12:31 PM SOLAR SALES ASSESSOR Narrative [facility] MICROBIOLOGY - 05/16/2024 6:46 PM SOLAR SALES ASSESSOR Susceptibility testing of penicillin, other beta-lactam antibiotics, [...] Zana Tolentino MD LAB - MICROBIOLOGY O EMILY [facility]CRO[facility] [address] [place] [address], [facility] [phone] * (ABNORMAL) GLUCOSE - POINT OF CARE (05/14/2024 11:33 AM SOLAR SALES ASSESSOR) Glucose WB/POC 253(H) 70 - 99 mg/dL 05/27/2024 7:26 PM SOLAR SALES ASSESSOR [facility] Specimen Type Arterial 05/27/2024 7:26 PM SOLAR SALES ASSESSOR [facility] Blood BLOOD SPECIMEN / Unknown 05/14/2024 11:33 AM SOLAR SALES ASSESSOR 05/27/2024 7:26 PM SOLAR SALES ASSESSOR Zana Tolentino MD LAB - POINT OF CARE ORDERABLES [facility] [address] [place] [address] * CULTURE BLOOD (05/14/2024 9:25 AM SOLAR SALES ASSESSOR) Culture No growth day 5 JEFF 05/19/2024 1:31 PM SOLAR SALES ASSESSOR [facility] Blood PERIPHERAL BLOOD / Unknown Lab Venipuncture / Unknown 05/14/2024 9:25 AM SOLAR SALES ASSESSOR 05/14/2024 9:30 AM SOLAR SALES ASSESSOR Zana Tolentino MD LAB - MICROBIOLOGY O EMILY Performing Organization Address City/[facility]/ZIP Co de Phone Number [facility] [address] [place] [address], [facility] [phone] * CULTURE BLOOD (05/14/2024 9:16 AM SOLAR SALES ASSESSOR) Culture No growth day 5 EJFF 05/19/2024 1:31 PM SOLAR SALES ASSESSOR [facility] Blood PERIPHERAL BLOOD / Unknown Lab Venipuncture / Unknown 05/14/2024 9:16 AM SOLAR SALES ASSESSOR 05/14/2024 9:30 AM SOLAR SALES ASSESSOR Zana Tolentino MD LAB - MICROBIOLOGY O EMILY Performing Organization Address [facility] Co de Phone Number [facility] MICROBIOLOGY [address] [place] [address], [facility] [phone] * FOLATE (05/14/2024 9:16 AM SOLAR SALES ASSESSOR) Folate 8.5 7.0 - 31.4 ng/mL 05/14/2024 10:27 AM SOLAR SALES ASSESSOR [facility] Blood BLOOD SPECIMEN / Unknown Lab Venipuncture / Unknown 05/14/2024 9:16 AM SOLAR SALES ASSESSOR 05/14/2024 9:30 AM SOLAR SALES ASSESSOR Zana Tolentino MD LAB - CHEMISTRY MELIDA COLLINS Performing Organization Address [facility] Co de Phone Number [facility] [address] [place] [phone] * (ABNORMAL) VITAMIN B12 (05/14/2024 9:16 AM SOLAR SALES ASSESSOR) Vitamin B12 >2,000(H) 213 - 816 pg/mL 05/14/2024 10:27 AM SOLAR SALES ASSESSOR [facility] Blood BLOOD SPECIMEN / Unknown Lab Venipuncture / Unknown 05/14/2024 9:16 AM SOLAR SALES ASSESSOR 05/14/2024 9:30 AM SOLAR SALES ASSESSOR Zana Tolentino MD LAB - CHEMISTRY MELIDA COLLINS [facility] [address] [place] [address] * LACTIC ACID BLOOD (05/14/2024 9:16 AM SOLAR SALES ASSESSOR) Lactic Acid 1.0 <=2.0 mmol/L 05/14/2024 9:54 AM SOLAR SALES ASSESSOR [facility] Blood BLOOD SPECIMEN / Unknown Lab Venipuncture / Unknown 05/14/2024 9:16 AM SOLAR SALES ASSESSOR 05/14/2024 9:30 AM SOLAR SALES ASSESSOR Zana Tolentino MD LAB - CHEMISTRY MELIDA COLLINS Performing Organization Address City/[facility]/ZIP Co de Phone Number [facility] [address] [place], [place] [id number] * (ABNORMAL) B-TYPE NATRIURETIC PEPTIDE (05/14/2024 9:16 AM SOLAR SALES ASSESSOR) Pathologist [facility] BNP 140(H) <=100 pg/mL 05/14/2024 10:10 AM [employer]AR SALES ASSESSOR [facility] Blood BLOOD SPECIMEN / Unknown Lab Venipuncture / Unknown 05/14/2024 9:16 AM [employer] SALES ASSESSOR 05/14/2024 9:30 AM [employer]AR SALES ASSESSOR Narrative [facility] - 05/14/2024 10:10 AM [employer] SALES ASSESSOR A cutoff of 100 pg/mL has been [...] Tolentino MD LAB - CHEMISTRY MELIDA COLLINS [facility] [address] [place] [address] * (ABNORMAL) GLUCOSE - POINT OF CARE (05/14/2024 8:16 AM [employer] SAL[employer]ESSOR) Glucose WB/POC 210(H) 70 - 99 mg/dL 05/27/2024 7:26 PM SOLAR SALES ASSESSOR [facility] Specimen Type Arterial 05/27/2024 7:26 PM SOLAR SALES ASSESSOR [facility] Blood BLOOD SPECIMEN / Unknown 05/14/2024 8:16 AM [employer]AR SALES ASSESSOR 05/27/2024 7:26 PM SOLAR SALES ASSESSOR Zana Tolentino MD LAB - POINT OF CARE ORDERABLES Performing Organization Address [facility] Co de Phone Number [facility] [address] [place] [phone] * VANCOMYCIN LEVEL RANDOM (05/14/2024 4:03 AM SOLAR SALES ASSESSOR) [facility] Vancomycin Random 14.5 <=40.0 ug/mL 05/14/2024 9:34 AM SOLAR SALES ASSESSOR [facility] Blood BLOOD SPECIMEN / Unknown Lab Venipuncture / Unknown 05/14/2024 4:03 AM SOLAR SALES ASSESSOR 05/14/2024 4:13 AM SOLAR SALES ASSESSOR Narrative [facility] - 05/14/2024 9:34 AM [employer]AR SALES ASSESSOR No reference range available for random Vancomycin levels. All results interpreted by ordering physician. Zana Tolentino MD LAB - CHEMISTRY MELIDA COLLINS Performing Organization Address [facility] Co de Phone Number [facility] [address] [place] [phone] * CK BLOOD (05/14/2024 4:03 AM SOLAR SALES ASSESSOR) [facility] CK 136 30 - 200 U/L 05/14/2024 9:34 AM SOLAR SALES ASSESSOR [facility] Blood BLOOD SPECIMEN / Unknown Lab Venipuncture / Unknown 05/14/2024 4:03 AM SOLAR SALES ASSESSOR 05/14/2024 4:13 AM [employer] SALES ASSESSOR Zana Tolentino MD LAB - CHEMISTRY MELIDA COLLINS Performing Organization Address [facility] Co de Phone Number [facility] [address] [place] [phone] * (ABNORMAL) RETIC COUNT (05/14/2024 4:[address] [facility]) [facility] Reticulocyte Percent 1.38 0.50 - 2.40 % 05/14/2024 9:13 AM [facility] Reticulocyte Absolute 0.0384 0.0200 - 0.1100 x10E6/uL 05/14/2024 9:13 AM [facility] Ret-HE 23.6(L) 29.0 - 37.9 pg 05/14/2024 9:13 AM [facility] Immature Reticulocyte Fraction 18.2(H) 1.8 - 15.2 % 05/14/2024 9:13 AM [facility] Blood BLOOD SPECIMEN / Unknown Lab Venipuncture / Unknown 05/14/2024 4:03 AM [employer] SALES ASSESSOR 05/14/2024 4:13 AM SOLAR SALES ASSESSOR Zana Tolentino MD LAB - HEMATOLOGY ORD ERABLES [facility] [address] [place] [phone] * (ABNORMAL) FERRITIN (05/14/2024 4:03 AM [employer]AR SALES ASSESSOR) [facility] Ferritin 1,357(H) 22 - 275 ng/mL 05/14/2024 10:16 AM [facility] Blood BLOOD SPECIMEN / Unknown Lab Venipuncture / Unknown 05/14/2024 4:03 AM [employer] SALES ASSESSOR 05/14/2024 4:13 AM [employer]AR SALES ASSESSOR Zana Tolentino MD LAB - CHEMISTRY ORDE RABLISA [facility] [address] [place] [phone] * (ABNORMAL) IRON + TRANSFERRIN PANEL (05/14/2024 4:[address] [facility]) [facility] Iron 11(L) 50 - 175 ug/dL 05/14/2024 9:34 AM [facility] Transferrin 100(L) 174 - 382 mg/dL 05/14/2024 9:34 AM [facility] TIBC Calculated 125(L) 240 - 450 ug/dL 05/14/2024 9:34 AM [facility] Iron Saturation % 9(L) 20 - 50 % 05/14/2024 9:34 AM [facility] Blood BLOOD SPECIMEN / Unknown Lab Venipuncture / Unknown 05/14/2024 4:03 AM [employer] SALES ASSESSOR 05/14/2024 4:13 AM [employer] SALES ASSESSOR Zana Tolentino MD LAB - CHEMISTRY ORDSami COLLINS Performing Organization Address [facility]/ZIP Co de Phone Number [facility] [address] [place], [place] [phone] * (ABNORMAL) DIFFERENTIAL MANUAL (05/14/2024 4:03 AM [employer] SALES ASSESSOR) Neutrophil % 89(H) 41 - 74 % 05/14/2024 4:47 AM [facility] Lymphocyte % 8(L) 17 - 47 % 05/14/2024 4:47 AM [facility] Monocyte % 3 3 - 11 % 05/14/2024 4:47 AM [facility] Neutrophil Absolute 19.40(H) 1.60 - 7.50 x10E9/L 05/14/2024 4:47 AM [facility] Lymphocyte Absolute 1.74 1.00 - 4.40 x10E9/L 05/14/2024 4:47 AM [facility] Monocyte Absolute 0.65 0.15 - 1.00 x10E9/L 05/14/2024 4:47 AM [facility] RBC Morphology REVIEWED 05/14/2024 4:47 AM [facility] Margaret Cells MODERATE(A) (none) 05/14/2024 4:47 AM [facility] Blood BLOOD SPECIMEN / Unknown Lab Venipuncture / Unknown 05/14/2024 4:03 AM [employer] SALES ASSESSOR 05/14/2024 4:13 AM [employer]AR SALES ASSESSOR Nicanor Richter MD LAB - HEMATOLOGY ORDERABLES Performing Organization Address [facility] Co de Phone Number [facility] [address] [place] [phone] * (ABNORMAL) RENAL FUNCTION PANEL (05/14/2024 4:[address] [facility]) Glucose 185(H) 70 - 99 mg/dL 05/14/2024 4:46 AM [facility] Sodium 133(L) 136 - 145 mmol/L 05/14/2024 4:46 AM [facility] Potassium 4.1 3.5 - 5.1 mmol/L 05/14/2024 4:46 AM [facility] Chloride 106 98 - 107 mmol/L 05/14/2024 4:46 AM [facility] CO2 20(L) 22 - 29 mmol/L 05/14/2024 4:46 AM [facility] Calcium 8.2(L) 8.4 - 10.4 mg/dL 05/14/2024 4:46 AM [facility] Anion Gap 7 6 - 16 mmol/L 05/14/2024 4:46 AM [facility] BUN 28(H) 5.3 - 18.7 mg/dL 05/14/2024 4:46 AM [facility] Creatinine 1.38(H) 0.72 - 1.25 mg/dL 05/14/2024 4:46 AM [facility] Albumin 1.6(L) 3.4 - 5.0 gm/dL 05/14/2024 4:46 AM [facility] Phosphorus 4.1 2.5 - 4.5 mg/dL 05/14/2024 4:46 AM [facility] eGFR by CKD-EPI 65(L) >=90 mL/min/1.7 3 m2 05/14/2024 4:46 AM [facility] Blood BLOOD SPECIMEN / Unknown Lab Venipuncture / Unknown 05/14/2024 4:03 AM SOLAR SALES ASSESSOR 05/14/2024 4:[address] [facility] Nicanor Richter MD LAB - CHEMISTRY ORDERABLES [facility] [address] [place] [address] * (ABNORMAL) CBC W AUTO DIFFERENTIAL (05/14/2024 4:[address] [facility]) Pathologist [facility] WBC 21.8(H) 4.0 - 10.7 x10E9/L 05/14/2024 4:47 AM [facility] RBC Count 2.75(L) 4.30 - 5.80 x10E12/L 05/14/2024 4:47 AM [facility] Hemoglobin 7.7(L) 13.3 - 17.5 g/dL 05/14/2024 4:47 AM [facility] Hematocrit 25.1(L) 38.7 - 51.1 % 05/14/2024 4:47 AM [facility] MCV 91.3 80.0 - 98.0 fL 05/14/2024 4:47 AM [facility] MCH 28.0 26.7 - 33.6 pg 05/14/2024 4:47 AM [facility] MCHC 30.7(L) 31.7 - 36.3 g/dL 05/14/2024 4:47 AM [facility] RDW-CV 13.6 11.3 - 14.8 % 05/14/2024 4:47 AM [facility] Platelet Count 298 150 - 420 x10E9/L 05/14/2024 4:47 AM [facility] MPV 8.8 7.8 - 11.4 fL 05/14/2024 4:47 AM [facility] Blood BLOOD SPECIMEN / Unknown Lab Venipuncture / Unknown 05/14/2024 4:03 AM [employer]AR SALES ASSESSOR 05/14/2024 4:13 AM SOLAR SALES ASSESSOR Nicanor Richter MD LAB - HEMATOLOGY ORDERABLES Performing Organization Address City/State/[facility] Co de Phone Number [facility] [address] [place] [address] * (ABNORMAL) GLUCOSE - POINT OF CARE (05/13/2024 11:10 PM SOLAR SALES ASSESSOR) [facility] Glucose WB/POC 222(H) 70 - 99 mg/dL 05/14/2024 7:27 AM [facility] Specimen Type Cap Fingerstick 2023 7:27 AM [facility] Blood BLOOD SPECIMEN / Unknown 05/13/2024 11:10 PM SOLAR SALES ASSESSOR 05/14/2024 7:27 AM SOLAR SALES ASSESSOR Nicanor Richter MD LAB - POINT OF CARE ORDERABLES [facility] [address] [place] [address] * (ABNORMAL) CBC W AUTO DIFFERENTIAL (05/13/2024 6:30 PM SOLAR SALES ASSESSOR) WBC 22.3(H) 4.0 - 10.7 x10E9/L 05/13/2024 7:09 PM [facility] RBC Count 2.90(L) 4.30 - 5.80 x10E12/L 05/13/2024 7:09 PM [facility] Hemoglobin 8.2(L) 13.3 - 17.5 g/dL 05/13/2024 7:09 PM [facility] Hematocrit 25.6(L) 38.7 - 51.1 % 05/13/2024 7:09 PM [facility] MCV 88.3 80.0 - 98.0 fL 05/13/2024 7:09 PM [facility] MCH 28.3 26.7 - 33.6 pg 05/13/2024 7:09 PM [facility] MCHC 32.0 31.7 - 36.3 g/dL 05/13/2024 7:09 PM [facility] RDW-CV 13.4 11.3 - 14.8 % 05/13/2024 7:09 PM [facility] Platelet Count 318 150 - 420 x10E9/L 05/13/2024 7:09 PM [facility] MPV 8.9 7.8 - 11.4 fL 05/13/2024 7:09 PM [facility] Neutrophil % 80.9(H) 41.0 - 74.0 % 05/13/2024 7:09 PM [facility] Lymphocyte % 8.7(L) 17.0 - 47.0 % 05/13/2024 7:09 PM [facility] Monocyte % 7.6 3.0 - 11.0 % 05/13/2024 7:09 PM [facility] Eosinophil % 0.4 0.0 - 7.0 % 05/13/2024 7:09 PM [facility] Basophil % 0.4 0.0 - 1.6 % 05/13/2024 7:09 PM [facility] Immature Granulocytes % 2.0(H) 0.0 - 1.0 % 05/13/2024 7:09 PM [facility] Neutrophil Absolute 18.03(H) 1.60 - 7.50 x10E9/L 05/13/2024 7:09 PM [facility] Lymphocyte Absolute 1.94 1.00 - 4.40 x10E9/L 05/13/2024 7:09 PM [facility] Monocyte Absolute 1.70(H) 0.15 - 1.00 x10E9/L 05/13/2024 7:09 PM [facility] Eosinophil Absolute 0.10 0.00 - 0.60 x10E9/L 05/13/2024 7:09 PM [facility] Basophil Absolute 0.08 0.00 - 0.13 x10E9/L 05/13/2024 7:09 PM [facility] Blood BLOOD SPECIMEN / Unknown Lab Venipuncture / Unknown 05/13/2024 6:30 PM [employer]AR SALES ASSESSOR 05/13/2024 6:39 PM SOLAR SALES ASSESSOR Nicanor Richter MD LAB - HEMATOLOGY ORDERABLES [facility] [address] [place] [address] * (ABNORMAL) BASIC METABOLIC PANEL (CALCIUM TOTAL) (05/13/2024 6:30 PM SOLAR SALES ASSESSOR) [facility] Glucose 186(H) 70 - 99 mg/dL 05/13/2024 6:55 PM [facility] Sodium 133(L) 136 - 145 mmol/L 05/13/2024 6:55 PM [facility] Potassium 3.8 3.5 - 5.1 mmol/L 05/13/2024 6:55 PM [facility] Chloride 105 98 - 107 mmol/L 05/13/2024 6:55 PM [facility] CO2 19(L) 22 - 29 mmol/L 05/13/2024 6:55 PM [facility] Calcium 8.3(L) 8.4 - 10.4 mg/dL 05/13/2024 6:55 PM SOLAR SALES ASSESSOR [facility] Anion Gap 9 6 - 16 mmol/L 05/13/2024 6:55 PM SOLAR SALES ASSESSOR [facility] BUN 30(H) 5.3 - 18.7 mg/dL 05/13/2024 6:55 PM SOLAR SALES ASSESSOR [facility] Creatinine 1.32(H) 0.72 - 1.25 mg/dL 05/13/2024 6:55 PM SOLAR SALES ASSESSOR [facility] eGFR by CKD-EPI 68(L) >=90 mL/min/1.7 3 m2 05/13/2024 6:55 PM SOLAR SALES ASSESSOR [facility] Blood BLOOD SPECIMEN / Unknown Lab Venipuncture / Unknown 05/13/2024 6:30 PM SOLAR SALES ASSESSOR 05/13/2024 6:39 PM SOLAR SALES ASSESSOR Nicanor Richter MD LAB - CHEMISTRY ORDERABLES Performing Organization Address City/State/[facility] Co de Phone Number [facility] [address] [place] [address] documented in this encounter Visit [...] unspecified Hyperkalemia Hyperpotassemia Hyperglycemia Other abnormal glucose Diagnosis unknown Other unknown and unspecified cause of morbidity or mortality documented in this encounter Administered Medications Inactive Administered Medications - up to 3 most recent administrations Medication Order MAR Action Action Date Dose Rate Site 0.9% NaCl flush bag at 20 mL/hr, 250 mL, CONTINUOUS PRN, Starting on Thu05/13/24 at 2220, Until Thu05/26/24 at 1405, FLUSH BAG, Use for: IVPB flush $ New Bag/Syringe 05/20/2024 9:21 PM [employer] SALES ASSESSOR 250 mL 20 mL/hr $ New Bag/Syringe 05/19/2024 8:06 PM [employer]AR SALES ASSESSOR 250 mL 20 mL/ hr $ New Bag/Syringe 05/18/2024 8:09 PM [employer]AR SALES ASSESSOR 250 mL 20 mL/ hr 0.9% NaCl injection 10-40 mL 10-40 mL, Intracatheter, EVERY 8 HOURS, First dose on Thu05/24/24 at 1400, Until Discontinued, Flush each lumen of PICC with 10ml NS IVP every 8 hours (regardless of continuous IV infusion). Flushing may be contraindicated if concentrated drips are infusing. $ Given 05/26/2024 5:45 AM SOLAR SALES ASSESSOR 10 mL $ Given 05/25/2024 8:57 PM SOLAR SALES ASSESSOR 10 mL $ Given 05/25/2024 12:46 PM SOLAR SALES ASSESSOR 10 mL 0.9% NaCl injection 10-40 mL [...] blood draw. $ Given 05/24/2024 10:41 PM [employer]AR SALES ASSESSOR 10 mL acetaminophen (Tylenol) tablet 650 mg 650 mg, Oral, EVERY 6 HOURS PRN, Fever, Mild Pain, Starting on Thu05/18/24 at 1114, Until Thu05/26/24 at 1405, Patient preference for [...] tolerate oral intake $ Given 05/21/2024 8:13 P M [employer] SALES ASSESSOR 650 mg artificial tears ophthalmic ointment Each Eye, EVERY 8 HOURS, First dose on Thu05/21/24 at 0000, Until Discontinued, Place a small strip of ointment into the eye. Wait at least 5 minutes before administering other ophthalmic medications. $ Given 05/21/2024 8:10 PM SOLAR SALES ASSESSOR atorvastatin (Lipitor) tablet 40 mg 40 mg, Oral, AT BEDTIME, First dose on Thu05/13/24 at 2115, Until Discontinued $ Given 05/25/2024 8:56 PM SOLAR SALES ASSESSOR 40 mg $ Given 05/24/2024 8:09 PM SOLAR SALES ASSESSOR 40 mg $ Given 05/23/2024 8:06 PM [employer]AR SALES ASSESSOR 40 mg benzonatate (Tessalon) capsule 100 mg 100 mg, Oral, 3 TIMES DAILY PRN, Cough, Starting on Thu05/17/24 at 1335, Until Inna 05/26/24 at 1405 $ Given 05/25/2024 6:41 PM [employer]AR SALES ASSESSOR 100 mg $ Given 05/19/2024 12:50 AM SOLAR SALES ASSESSOR 100 mg $ Given 05/18/2024 9:24 AM SOLAR SALES ASSESSOR 100 mg BUPivacaine PF (Marcaine PF) 0.5 % injection PRN, Starting on Thu05/20/24 at 1505, Until Thu05/20/24 at 1608, Intra-op $ Given 05/20/2024 3:05 PM [employer] SALES ASSESSOR 15 mL Ope rative Site buPROPion XL 24hr (Wellbutrin-XL) tablet 150 mg 150 mg, Oral, DAILY, First dose on Thu05/14/24 at 0900, Until Discontinued, Do not crush, chew, or cut in half. $ Given 05/26/2024 8:21 AM SOLAR SALES ASSESSOR 150 mg $ Given 05/25/2024 8:38 AM SOLAR SALES ASSESSOR 150 mg $ Given 05/24/2024 8:13 AM SOLAR SALES ASSESSOR 150 mg cefTRIAXone (Rocephin) 2,000 mg in 0.9% NaCl [...] Bone/Joint $ New Bag/Syringe 05/25/2024 5:02 PM [employer]AR SALES ASSESSOR 2,000 mg 100 mL/hr $ New Bag/Syringe 05/24/2024 8:19 PM SOLAR SALES ASSESSOR 2,000 mg 100 mL /hr chlorhexidine (Peridex) 0.12 % oral solution 15 mL 15 mL, Mouth/Throat, 2 TIMES DAILY, First dose on Thu05/21/24 at 0000, Until Discontinued, Swab oral mucosa for 30 seconds. Do not brush teeth immediately after use. . WASTE DISPOSAL INSTRUCTIONS: Black Bin Disposal required. $ Given 05/26/2024 8:22 AM SOLAR SALES ASSESSOR 15 mL $ Given 05/25/2024 8:55 PM SOLAR SALES ASSESSOR 15 mL $ Given 05/25/2024 8:37 AM SOLAR SALES ASSESSOR 15 mL cyclobenzaprine (Flexeril) tablet 5 mg 5 mg, Oral, 3 TIMES DAILY PRN, Muscle Spasms, Starting on Thu05/16/24 at 1306, Until Thu05/26/24 at 1405 $ Given 05/16/2024 2:22 PM [employer] SALES ASSESSOR 5 mg dextrose 10 % IV bolus [...] with IV Access, Starting on Thu05/13/24 at 205, Until Inna 05/26/24 at 1405, If NOT [...] IV STAT NOTIFY PROVIDER OF HYPOGLYCEMIC EVENT. ferrous sulfate tablet 325 mg 325 mg, Oral, DAILY AFTER LUNCH, First dose on Thu05/13/24 at 2130, Until Discontinued, Take with food. Do not take within 2 hours of other medications. $ Given 05/25/2024 1:10 PM SOLAR SALES ASSESSOR 325 mg $ Given 05/24/2024 12:42 PM SOLAR SALES ASSESSOR 325 mg $ Given 05/23/2024 12:23 PM [employer]AR SALES ASSESSOR 325 mg gabapentin (Neurontin) capsule 300 mg 300 mg, Oral, 3 TIMES DAILY, First dose on Thu05/13/24 at 2115, Until Discontinued $ Given 05/26/2024 8:21 AM SOLAR SALES ASSESSOR 300 mg $ Given 05/25/2024 8:55 PM [employer]AR SALES ASSESSOR 300 mg $ Given 05/25/2024 1:10 PM [employer]AR SALES ASSESSOR 300 mg glucagon (Glucagen) injection 1 mg [...] Until Discontinued $ Given 05/26/2024 5:44 AM [employer]AR SALES ASSESSOR 7,500 Units Abdominal Tissue $ Given 05/25/2024 8:55 PM [employer]AR SALES ASSESSOR 7,500 Units A bdominal Tissue $ Given 05/25/2024 1:10 PM [employer]AR SALES ASSESSOR 7,500 Units A bd Left Lower Quadrant HYDROcodone-acetaminophen ([place]) 5-325 MG tablet 1 tablet 1 tablet, [...] oral intake $ Given 05/24/2024 11:14 PM [employer] SALES ASSESSOR 1 tablet $ Given 05/22/2024 12:46 AM [employer]AR SALES ASSESSOR 1 tablet insulin aspart (NovoLOG) pen 0-4 Units 0-4 Units, Subcutaneous, AT BEDTIME, First dose on 05/14/24 at 2100, Until Discontinued, Low Dose: Correction [...] notify physician $ Given 05/22/2024 9:24 PM [employer] SALES ASSESSOR 1 Units Abdominal Tissue $ Given 05/18/2024 7:59 PM SOLAR SALES ASSESSOR 2 Units Ab dominal Tissue $ Given 05/17/2024 11:12 PM [employer]AR SALES ASSESSOR 2 Units A bdominal Tissue insulin aspart [...] same time. $ Given 05/21/2024 8:13 AM SOLAR SALES ASSESSOR 2 Units Abd Right Lower Quadrant $ Given 05/18/2024 5:10 PM [employer]AR SALES ASSESSOR 3 Units Le ft Arm $ Given 05/18/2024 12:11 PM SOLAR SALES ASSESSOR 2 Units L eft Arm insulin aspart (NovoLOG) pen 15 Units 15 Units, Subcutaneous, 3 TIMES DAILY WITH MEALS, First dose (after last modification) on Thu05/18/24 at 1200, Until Discontinued, Hold MEALTIME insulin if patient is NPO or eating less than 50% of meal -OR- If carb intake for the meal is less than 30 grams. $ Given 05/26/2024 8:22 AM [employer]AR SALES ASSESSOR 15 Units Left Arm $ Given 05/25/2024 5:30 PM [employer]AR SALES ASSESSOR 15 Units Le ft Arm $ Given 05/25/2024 12:30 PM [employer] SALES ASSESSOR 15 Units L eft Arm insulin glargine (Lantus) pen 24 Units 24 Units, Subcutaneous, AT BEDTIME, First dose (after last modification) on Thu05/17/24 at 2100, Until Discontinued, Obtain a current Blood Glucose if necessary. . WASTE DISPOSAL INSTRUCTIONS: Black Bin Disposal required. $ Given 05/25/2024 9:02 PM SOLAR SALES ASSESSOR 24 Units Abdominal Tissue $ Given 05/24/2024 8:19 PM SOLAR SALES ASSESSOR 24 Units Ab dominal Tissue $ Given 05/23/2024 8:10 PM [employer] SALES ASSESSOR 24 Units Ab dominal Tissue lidocaine PF (Xylocaine MPF) 1 % injection PRN, Starting on Thu05/20/24 at 1505, Until Thu05/20/24 at 1608, Intra-op $ Given 05/20/2024 3:05 PM [employer] SALES ASSESSOR 15 mL Ope rative Site metroNIDAZOLE (Flagyl) tablet 500 mg 500 mg, Oral, EVERY 8 HOURS, First dose on 05/14/24 at 0930, Until Discontinued, May take with food or milk., Indication for anti-infective therapy: Documented infection, Site of anti-infective therapy: Skin/soft tissue, Wound $ Given 05/26/2024 5:44 AM [employer]AR SALES ASSESSOR 500 mg $ Given 05/25/2024 9:04 PM [employer]AR SALES ASSESSOR 500 mg $ Given 05/25/2024 1:10 PM [employer] SALES ASSESSOR 500 mg ondansetron (Zofran) injection 4 mg 4 mg, Intravenous, EVERY 6 HOURS PRN, Nausea/Vomiting, Starting on 05/16/24 at 1916, Until Inna 05/26/24 at 1405, Administer over 2 to 5 minutes. pantoprazole EC (Protonix) tablet 40 mg 40 mg, Oral, DAILY, First dose on 05/14/24 at 0900, Until Discontinued, Do not crush, chew, or cut in half. $ Given 05/26/2024 8:21 AM [employer]AR SALES ASSESSOR 40 mg $ Given 05/25/2024 8:38 AM [employer]AR SALES ASSESSOR 40 mg $ Given 05/24/2024 8:13 AM [employer] SALES ASSESSOR 40 mg polyethylene glycol 3350 (Miralax) packet 17 g 17 g, Oral, DAILY, First dose on Inna 05/19/24 at 1130, Until Discontinued, Mix in 8 ounces of water, juice, soda, coffee or tea prior to administration tamsulosin (Flomax) capsule 0.4 mg 0.4 mg, Oral, DAILY, First dose on 05/14/24 at 0900, Until Discontinued, At the same time every day after a meal. Do not crush or chew. May open capsule and administer contents per tube. J-tube administration is not appropriate as the small lumen would necessitate crushing of granules. $ Given 05/26/2024 8:21 AM SOLAR SALES ASSESSOR 0.4 mg $ Given 05/25/2024 8:38 AM SOLAR SALES ASSESSOR 0.4 mg $ Given 05/24/2024 8:13 AM SOLAR SALES ASSESSOR 0.4 mg thrombin (Thrombogen; Thrombostat) kit PRN, Starting on Thu05/20/24 at 1536, Until Thu05/20/24 at 1608, Intra-op $ Given 05/20/2024 3:36 PM SOLAR SALES ASSESSOR 20,000 Units Operative Site documented in this encounter Active and Recently Administered Medications Times are shown in SOLAR SALES ASSESSOR. Scheduled Medication Order 05/24/2024 05/25/2024 05/26/2024 0.9% NaCl injection 10-40 mL 10-40 mL, Intracatheter, EVERY 8 HOURS, First dose on Thu05/24/24 at 1400, Until Discontinued, Flush each lumen of PICC with 10ml NS IVP every 8 hours (regardless of continuous IV infusion). Flushing may be contraindicated if concentrated drips are infusing. 1242 ($ Given - Provider: Rio Schmitz RN)2018 ($ Given - Provider: Kang Sanders RN) 0531 ($ Given - Provider: Kang Sanders, RN)1246 ($ Given - Provider: Rio Schmitz, ARYAN)205 ($ Given - Provider: Kang Sanders, ARYAN) 0545 ($ Given - Provider: Kang Sanders, ARYAN) alteplase (Cathflo Activase) injection 2 mg (COMPLETED) [...] irrigate the catheter with 0.9% Sodium Chloride, RETIREMENT. 1908 ($ Given - Provider: Rio Schmitz RN) artificial tears ophthalmic ointment Each Eye, EVERY 8 HOURS, First dose on Thu24 at 0000, Until Discontinued, Place a small [...] ($ Given - Provider: Rio Schmitz RN) cefepime (Maxipime) 2,000 mg in 0.9% [...] Rio Schmitz RN)1413 (Stopped - Provider: Rio Scmhitz RN) cefTRIAXone (Rocephin) 2,000 mg in 0.9% [...] Rio Schmitz RN)1740 (Stopped - Provider: Rio Schmitz RN) chlorhexidine (Peridex) 0.12 % oral solution [...] ($ Given - Provider: Kang Sanders RN) 0822 ($ Given - Provider: Rio Schmitz RN) ferrous sulfate tablet 325 mg 325 mg, Oral, DAILY AFTER LUNCH, First dose on Thu05/13/24 at 2130, Until Discontinued, Take with food. Do not take within 2 hours of other medications. 1242 ($ Given - Provider: Rio Schmitz RN) 1310 ($ Given - Provider: Rio Schmitz, RN) 1300 (Due) gabapentin (Neurontin) capsule 300 mg 300 mg, Oral, 3 TIMES DAILY, First dose on Thu05/13/24 at 2115, Until Discontinued 0813 ($ Given - Provider: Rio Schmitz RN)1414 ($ Given - Provider: Rio Schmitz RN)2008 ($ Given - Provider: Kang Sanders RN) 0838 ($ Given - Provider: Rio Schmitz, RN)1310 ($ Given - Provider: Rio Schmitz RN)2054 ($ Given - Provider: Kang Sanders, ARYAN) 0821 ($ Given - Provider: Rio Schmitz, RN) heparin injection 7,500 Units 7,500 Units, Subcutaneous, EVERY 8 HOURS, First dose on Thu05/21/24 at 0915, Until Discontinued 0529 ($ Given - Provider: Maggie Mojica RN)1414 ($ Given - Provider: Rio Schmitz RN)2007 [...] Reason: See Comments - Comment: Gluicose 167) 2100 (Not Administered - Provider: Kang Sanders RN - Reason: See Comments - Comment: [id number]) insulin aspart (NovoLOG) pen 0-6 Units 0-6 Units, Subcutaneous, 3 TIMES DAILY WITH MEALS, First dose on 05/14/24 at 1200, Until Discontinued, Low Dose: Correction [...] Schmitz RN)1242 ($ Given - Provider: Rio Schmitz, RN)1740 ($ Given - Provider: Rio Schmitz, RN) 0836 ($ Given - Provider: Rio Schmitz, RN)1230 ($ Given - Provider: Rio Schmitz, RN)1730 ($ Given - Provider: Rio Schmitz, RN) 0822 ($ Given - Provider: Rio Schmitz, RN)1200 (Due) insulin glargine (Lantus) pen 24 [...] 0530 ($ Given - Provider: Kang Sanders RN)1310 ($ Given - Provider: Rio Schmitz RN)2104 ($ Given - Provider: Kang Sanders RN) 0544 ($ Given - Provider: Kang Sanders RN) pantoprazole EC (Protonix) tablet 40 mg 40 mg, Oral, DAILY, First dose on Thu05/14/24 at 0900, Until Discontinued, Do not crush, chew, or cut in half. 0813 ($ Given - Provider: Rio Schmitz RN) 0838 ($ Given - Provider: Rio Schmitz RN) 0821 ($ Given - Provider: Rio Schmitz RN) polyethylene glycol 3350 (Miralax) packet [...] PRN, Starting on Thu05/13/24 at 2220, Until Inna 05/26/24 at 1405, FLUSH BAG, Use for: IVPB [...] or lipids, and after each blood draw. 2241 ($ Given - Provider: Kang Sanders RN) acetaminophen (Tylenol) tablet 650 mg 650 mg, Oral, EVERY 6 HOURS PRN, Fever, Mild Pain, Starting on Thu05/18/24 at 1114, Until Thu05/26/24 at 1405, Patient preference for [...] Spasms, Starting on Thu05/16/24 at 1306, Until Inan 05/26/24 at 1405 dextrose 10 % IV bolus(Linked [...] than 70 mg/dL, Starting on Thu05/13/24 at 2051, Until Inna 05/26/24 at 1405, If able [...] choices) NOTIFY PROVIDER OF HYPOGLYCEMIC EVENT. HYDROcodone-acetaminophen ([place]) 5-325 MG tablet 1 tablet 1 tablet, [...] withOUT IV Access, Starting on Thu05/13/24 at 2051, [...] portion documented in this encounter Care Teams Digital Asset Manager Relationship Specialty Start Date End Date Nguyễn Bingham MD [address] [place] [id number] PCP - General Family Medicine 07/03/23 documented as of this encounter
--- OUTSIDE RECORDS SUMMARY | 2024-06-08 00:01 | XMS_ITS | Encounter Summary ---
Author Organization [facility] Health Address [address] [place] [address] Care Team Providers Care Self Pay Collector Name Role Phone Nguyễn Bingham MD Primary Care Provider [phone] Encounter Details Date Type Department Care Team (Latest Contact Info) Description 05/13/2024 Travel Social History Tobacco Use Types Packs/Day Years [...] Recorded Patient Health Questionnaire-2 Score 1 10/01/2023 [facility] - Occupational [...] any time in the past 12 m [facility], were you homeless or living in a [facility] (including now)? No 05/13/2024 Sex and Gender Information Value Date Recorded Sex Assigned at Not on file Gender Identity Not on file Sexual Orientation Not on file documented as of this encounter Plan of Treatment Not on file documented as of this encounter Visit Diagnoses Not on filedocumented in this encounter Care Teams Self Pay Collector Relationship Specialty Start Date End Date Nguyễn Bingham MD [address] [place] [id number] PCP - General Family Medicine 07/03/23 documented as of this encounter
--- OUTSIDE RECORDS SUMMARY | 2024-06-08 00:01 | XMS_ITS | Encounter Summary ---
Author Organization [facility] Address [address] [place] [address] Care Team Providers Care Equity Analyst Name Role Phone Nguyễn Bingham MD Primary Care Provider [phone] Reason for Visit * Auth/Cert (Routine) Specialty Diagnoses / Procedures Referred By Contac t Referred To Contact Diagnoses Foot Ulcer Referral ID Status Reason Start Date Expiration Date Visits Re quested Visits Authorized [id number] 1 1 Encounter Details Date Type Department Care Team (Late st Contact Info) Description 05/15/2024 3:28 PM CATTLE KILLER Anesthesia Event [facility] [address] [place] [address] Ayesha Rodríguez MD [address] [place] [address] James Luong MD [address] [id number] Anesthesia Record Procedure Summary Procedure Name Responsible Anesthesiologist Anesthesia Start Time Anesthesia Stop Time IRRIGATION/DEBRIDEM ENT FOOT/ANKLE (Left: Foot) Ayesha Rodríguez MD 05/15/24 1528 05/15/24 1707 Events Date Time Event Comment 05/15/2024 1438 1528 An Start 1528 An Start Data 1530 PT Reassessment 1543 Quick Note Pt receiving sc heduled abx on the floor 1550 Timeout Anesthesia part icipated in timeout at the time documented in the record by nursing. 1555 Incision 1659 an stop data 1659 Electnc Sig This record is electronically signed by the providers listed under staff. 1701 ANPTO2 1707 An Stop Meds Name Total midazolam 2 mg/2mL injection 2 mg fentaNYL 100 mcg/2mL injection 100 mcg lidocaine 2% injection (20 mg/ml) 50 mg propofol 200mg/20mL injection 40 mg propofol (DIPRIVAN) injection 10mg/mL 1, 110.76 mg phenylephrine 1000 mcg/10mL injection 40 0 mcg ondansetron 4 mg/2mL injection 4 mg ketamine 50 mg/ml injection 35 mg glycopyrrolate 1mg/5mL injection 0.2 mg lactated ringers infusion 500 mL * Agents Name Exp. Sevoflurane O2 Insp. Sevoflurane N2O * Blood No blood administrations on file. Lines, Drains, and Airways Type Details Placement Removal Peripheral IV Date: 05/13/24; Orientation: Anterior, Right; Location: Forearm; Gauge: 18 G 05/13/24 0000 by Kylee Gayle RN 05/16/24 195 by Rio Schmitz, ARYAN Other Wound 05/13/24; 2334; Yes; Left (heel); Foot (left heel); 05/26/24; 19005/13/24 2334 by Kylee Gayle RN 05/26/24 1905 by Generic, Auto Release External Urinary Catheter 05/14/24; 2145; 05/26/24; 19005/14/24 214 by Luis Daniel Starks RN 05/26/24 190 by Generic, Auto Release Procedural Site (Incision) 05/15/24; 1551; Left; Foot; 05/20/24; 213305/15/24 1551 by Jag Hernandez RN 05/20/242133 by Lashell Álvarez RN documented in this encounter Social History Tobacco [...] Recorded Patient Health Questionnaire-2 Score 1 10/01/2023 [facility] [place] Occup[facility] ional Health - Occupational Stress [...] time in the past 12 m [facility], were you homeless or living in a senior living (including now)? No 05/13/2024 Sex and Gender [...] as of this encounter Progress Notes * Gretchen Taylor APRN-CRNA - 05/15/2024 5:08 PM CST ANESTHESIA POSTOP EVALUATION NOTE Procedure: IRRIGATION/DEBRIDEMENT FOOT/ANKLE (Left: Foot) Rene Hyatt is a 43 year old male Patient Vitals for the past 6 hrs: BP Temp Pulse Resp 05/15/24 1132 140/79 98.5 ??F (36.9 ??C) 88 20 Anesthesia Type: MAC * No Diagnosis Codes entered * Mental Status: awake, alert, oriented, sufficiently recovered from acute administration of anesthesia to participate in the evaluation and neurologic status has returned to preoperative level Respiratory Function: natural Cardiac Function: stable Postop Pain: acceptable to the patient Postop Hydration: adequate Postop Nausea: none Assessment: no apparent anesthetic complications, patient tolerated procedure well and no evidence of recall Patient Disposition: Release from Anesthesia Care NOTABLE EVENTS: No notable events documented. LE KILLER * Ayesha Rodríguez MD - 05/15/2024 7:21 AM CST ANESTHESIA PREOPERATIVE EVALUATION NOTE Pt is a 43 yo male w/ a h/o HTN, DM II w/ PN, morbid obesity, HLD, anemia, anxiety, depression, WEST, bph Procedure: IRRIGATION/DEBRIDEMENT FOOT/ANKLE (Left: Foot) NPO status: Not Applicable (05/14/2024 2:52 PM) Vitals: Patient Vitals for the past 6 hrs: BP Temp Pulse Resp SpO2 05/15/24 0430 116/65 (!) 100.2 ??F (37.9 ??C) 89 16 97 % 05/15/24 0240 -- (!) 102.2 ??F (39 ??C) -- -- -- LMP: No LMP for male patient. OB [...] Other Findings: ANESTHESIA PLAN ASA Score: 4 E NPO Status: No solids since midnight, No solids for 6 hours and No liquids within 2 hours Anesthesia Plan: TIVA Planned Induction: intravenous Planned Postop Destination: endo Anesthetic plan was discussed with: patient Anesthetic Plan discussion was: Consented The patient's procedural Anesthetic Plan was discussed with the CHILD AND FAMILY COUNSELOR. BMI, Height, Weight Tobacco History Estimated body [...] Drug Use Never Outpatient Medications: Inpatient Medications: No outpatient medications have been marked as taking for the 05/13/24 encounter (Hospital Encounter). Current Facility-Administered Medications Medication Dose Last Admin NaCl 250 mL acetaminophen 650 mg 650 mg at 05/14/24 2338 atorvastatin 40 mg 40 mg at 05/14/242025 buPROPion XL 24hr 150 mg 150 mg at 05/14/2423 cefepime 2 g Stopped at 05/15/24 0236 dextrose IV for hypoglycemia 12.5 g Or dextrose IV for hypoglycemia 25 g Or glucagon 1 mg enoxaparin 40 mg 40 mg at 05/14/24 202 ferrous sulfate 325 mg 325 mg at 05/14/24 1310 gabapentin 300 mg 300 mg at 05/14/24 202 glucose (Diabetic Use) gel insulin aspart 0-4 Units 1 Units at 05/14/24 220 insulin aspart 0-6 Units 3 Units at 05/14/24 1728 insulin aspart 4 Units 4 Units at 05/14/24 1728 insulin glargine 15 Units 15 Units at 05/14/24 2204 metroNIDAZOLE 500 mg 500 mg at 05/15/24 0517 pantoprazole EC 40 mg 40 mg at 05/14/24 0823 sodium bicarbonate 8.4 % 150 mEq in sterile water (PF) infusion (fluid) New Bag at 05/14/24 1030 tamsulosin 0.4 mg 0.4 mg at 05/14/24 0823 vancomycin 1,500 mg Stopped at 05/15/24 0152 vancomycin (VANCOCIN) IV dose per pharmacy Allergies: No Known Allergies Relevant Problems Cardiovascular (+) Hypertension Endocrine (+) T1DM (type 1 diabetes mellitus) ([facility]) Problem List: Patient Active Problem List Diagnosis Date Noted Ulcer of left foot with other severity (HCC) 05/12/2024 Priority: Not Prioritized Class 3 obesity [...] of bleeding -CTM Hgb Diabetic foot ulcer (HCC) 03/10/2023 Priority: Not Prioritized Last Assessment & [...] diabetic shoes with custom offloading inserts 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 - plan for vit d 2k daily after 50k loading phase - f/u with PCP Medical History: No past medical history on file. Surgical History: Past Surgical History: Procedure Laterality Date Cyst Removal 2022 scrotum BASE BRANDER Status: No LMP for male patient. unknown OB History No obstetric history on file. Covid Vaccine: Lab Results: Recent Labs Base Name 05/14/24 2202 [id number] 234* SPECIMENTYPE Arterial Recent Labs Component Name 05/15/24 0013 WBC 25.1* RBC 2.76* HCT 24.6* HGB 7.7* PLTCOUNT 334 MCV 89.1 MCH 27.9 MCHC 31.3* MPV 8.7 Recent Labs Component Name 05/14/24 1731 CREATININEUR 181.54 Recent Labs Component Name 05/15/24 0013 SODIUM 132* POTASSIUM 4.1 CALCIUM 8.2* CHLORIDE 103 CO2 22 GLUCOSE 235* BUN 31* CREATININE 1.69* Recent Labs Component Name 05/15/24 0013 PHOS 3.3 Recent Labs Component Name 05/14/24 0916 BNP 140* Recent Labs Result Component Current Result CK 136 (05/14/2024) Recent Labs Result Component Current Result Albumin 1.6 (L) (05/15/2024) Anion Gap 7 (05/15/2024) eGFR by CKD-EPI 51 (L) (05/15/2024) Anesthesia pre op re evaluation by JANET Ames 05/15/2024 9:44 AM LE KILLER documented in this encounter Miscellaneous Notes * Addendum Note - Gretchen Taylor APRN-CRNA - 05/15/2024 6:25 PM CATTLE KILLER Addendum created 05/15/241824 by Gretchen Taylor APRN-CRNA Intraprocedure Meds edited LE KILLER * Anesthesia Transfer of Care - Gretchen Taylor APRN-CRNA - 05/15/2024 5:07 PM CST ANESTHESIA TRANSFER OF CARE NOTE Today's Date: 05/15/2024 Date of : 1980 Patient: Rene Hyatt Procedure(s): IRRIGATION/DEBRIDEMENT FOOT/ANKLE Surgeon(s): Primary: Marcos Quinn DPM Surgeon Assisting: Chi Hoffman DPM Preop Diagnosis: * No Diagnosis Codes entered * Pre-op Meds (From admission, onward) Start Stop Status Route Frequency Ordered 05/13/24 2220 0.9% NaCl flush bag -- Verified IV CONTINUOUS PRN 05/13/24 2220 05/15/24 0930 0.9% NaCl infusion -- Dispensed IV CONTINUOUS 05/15/24 0858 05/15/24 1548 acetaminophen (Tylenol) tablet 1,000 mg -- Verified PO ONCE PRN 05/15/24 1548 05/14/24 1819 acetaminophen (Tylenol) tablet 650 mg -- Dispensed PO EVERY 6 HOURS PRN 05/14/24 1820 05/15/24 1548 acetaminophen (Tylenol) tablet 650 mg -- Verified PO ONCE PRN 05/15/24 1548 05/15/24 1548 albuterol (Proventil;Ventolin) (5 MG/ML) 0.5% nebulizer solution 2.5 mg -- Verified IN POST-OP MULTIPLE 05/15/24 1548 05/13/24 211 atorvastatin (Lipitor) tablet 40 mg -- Dispensed PO AT BEDTIME 05/13/24203405/15/24 1548 atropine injection 0.4 mg -- Verified IV ONCE PRN 05/15/24 1548 05/14/24 0900 buPROPion XL 24hr (Wellbutrin-XL) tablet 150 mg Note to Pharmacy: OP sig: Take 1 (one) tablet by mouth once daily -- Dispensed PO DAILY 05/13/24203405/14/24 1000 cefepime (Maxipime) 2,000 mg in 0.9% NaCl IV 50 mL IVPB -- Dispensed IV EVERY 8 HOURS 05/14/2491605/13/242050 dextrose 10 % IV bolus Placed in Or Linked Group -- Verified IV PRN 05/13/24205005/13/242050 dextrose 10 % IV bolus Placed in Or Linked Group -- Verified IV PRN 05/13/24205005/15/24 154 droPERidol (Inapsine) injection 0.625 mg -- Verified IV ONCE PRN 05/15/24 1548 05/13/242244 enoxaparin (Lovenox) injection 40 mg -- Dispensed SC 2 TIMES DAILY 05/13/24203405/15/24 153 fentaNYL (PF) (Sublimaze) injection -- Sent IV PRN 05/15/24154005/15/24 1548 fentaNYL (PF) (Sublimaze) injection 25 mcg -- Verified IV EVERY 10 MIN PRN 05/15/24 1548 05/13/242129 ferrous sulfate tablet 325 mg -- Dispensed PO DAILY AFTER LUNCH 05/13/24203405/13/242114 gabapentin (Neurontin) capsule 300 mg Note to Pharmacy: OP sig: Take 1 (one) capsule by mouth 3 times daily -- Dispensed PO 3 TIMES DAILY 05/13/24203405/13/242050 glucagon (Glucagen) injection 1 mg Placed in Or Linked Group -- Verified SC PRN 05/13/24205005/13/242050 glucose (Diabetic Use) oral gel -- Verified PO PRN 05/13/24205005/15/24 1538 glycopyrrolate (Robinul) injection -- Sent IV PRN 05/15/24 1541 05/15/24 1548 glycopyrrolate (Robinul) injection 0.2 mg -- Verified IV ONCE PRN 05/15/24 1548 05/15/24 1548 hydrALAZINE (Apresoline) injection 5 mg -- Verified IV POST-OP MULTIPLE 05/15/24 1548 05/15/24 1548 HYDROmorphone (Dilaudid) injection 0.2 mg -- Verified IV EVERY 15 MIN PRN 05/15/24 1548 05/15/24 1548 HYDROmorphone (Dilaudid) injection 0.5 mg -- Verified IV EVERY 10 MIN PRN 05/15/24 1548 05/14/24 2100 insulin aspart (NovoLOG) pen 0-4 Units -- Verified SC AT BEDTIME 05/14/24 0917 05/14/24 1200 insulin aspart (NovoLOG) pen 0-6 Units -- Dispensed SC 3 TIMES DAILY WITH MEALS 05/14/24 0917 05/14/24 0800 insulin aspart (NovoLOG) pen 4 Units -- Dispensed SC 3 TIMES DAILY WITH MEALS 05/13/24203405/14/242099 insulin glargine (Lantus) pen 15 Units -- Verified SC AT BEDTIME 05/14/24 0918 05/15/24 1548 insulin regular human 1 unit/mL injection -- Verified IV PRN 05/15/24 1548 05/15/24 1538 ketamine (Ketalar) injection -- Sent IV PRN 05/15/24 1541 05/15/24 1548 labetalol (Normodyne; Trandate) injection 5 mg -- Verified IV POST-OP MULTIPLE 05/15/24 1548 05/15/24 1458 lactated ringers infusion -- Sent IV CONTINUOUS PRN 05/15/24 1458 05/15/24 1535 lidocaine HCl (PF) (Xylocaine MPF) 2 % injection -- Sent IV PRN 05/15/24 1541 05/15/24 1548 LORazepam (Ativan) injection 1 mg -- Verified IV POST-OP MULTIPLE 05/15/24 1548 05/15/24 1548 meperidine (Demerol) injection 12.5 mg -- Verified IV ONCE PRN 05/15/24 1548 05/14/24 0930 metroNIDAZOLE (Flagyl) tablet 500 mg -- Dispensed PO EVERY 8 HOURS 05/14/24 0917 05/15/24 1530 midazolam (Versed) injection -- Sent IV PRN 05/15/24 1541 05/15/24 1548 naloxone (Narcan) injection 0.04 mg -- Verified IV POST-OP MULTIPLE 05/15/24 1548 05/15/24 1545 ondansetron (Zofran) injection -- Sent IV PRN 05/15/24 1545 05/15/24 1548 ondansetron (Zofran) injection 4 mg -- Verified IV ONCE PRN 05/15/24 1548 05/15/24 1548 ondansetron (Zofran) injection 4 mg -- Verified IV ONCE PRN 05/15/24 1548 05/15/24 1548 oxyCODONE (immediate release) (Roxicodone) tablet 5 mg -- Verified PO ONCE PRN 05/15/24 1548 05/14/24 0900 pantoprazole EC (Protonix) tablet 40 mg -- Dispensed PO DAILY 05/13/24203405/15/24 1621 phenylephrine 100 mcg/mL injection -- Sent IV PRN 05/15/24 1621 05/15/24 1534 propofol (Diprivan) injection -- Sent IV CONTINUOUS PRN 05/15/24 1541 05/15/24 1537 propofol (Diprivan) injection -- Sent IV PRN 05/15/24 1545 05/14/24 0900 tamsulosin (Flomax) capsule 0.4 mg Note to Pharmacy: OP sig: Take 1 (one) capsule by mouth once daily At the same time every day aftera meal. -- Dispensed PO DAILY 05/13/24203405/14/24 1300 vancomycin (Vancocin) 1,500 mg in 530 mL IVPB -- Dispensed IV EVERY 12 HOURS 05/14/24 1042 05/14/24 0916 vancomycin (Vancocin) IV dose per pharmacy -- Verified XX DIRECTED 05/14/24 0917 * No Diagnosis Codes entered * . No Known Allergies Vitals: No data found. Lines, Drains, and Airways Type Details Placement Removal Peripheral IV Date: 05/13/24; Orientation: Anterior, Left; Location: Forearm; Gauge: 18 G 05/13/24 0000 by Kylee Gayle RN Intraprocedure I/O Totals Intake lactated ringers infusion 500.00 mL I.V. 500 mL Total Intake 1000 mL Output Estimated Blood Loss 50 mL Total Output 50 mL Net Net Volume 950 mL Patient Transfer Location: PACU Transport Airway: spontaneous respirations and supplemental O2 Notable Events: None Handoff Given? Yes Checklist [...] PACUteam. NOTABLE EVENTS: No notable events documented. Gretchen Taylor APRN-CHILD AND FAMILY COUNSELOR LE KILLER documented in this encounter Plan of Treatment Not on file documented as of this encounter Visit Diagnoses Not on filedocumented in this encounter Administered Medications Inactive Administered Medications - up to 3 most recent administrations Medication Order MAR Action Action Date Dose Rate Site fentaNYL (PF) (Sublimaze) injection Intravenous, PRN, Starting on 05/15/24 at 1535, Until 05/15/24 at 1707, Anesthesia Intra-op $ Given 05/15/2024 3:37 PM CATTLE KILLER 100 mcg glycopyrrolate (Robinul) injection Intravenous, PRN, Starting on 05/15/24 at 1538, Until 05/15/24 at 1707, Anesthesia Intra-op $ Given 05/15/2024 4:12 PM CATTLE KILLER 0.1 mg $ Given 05/15/2024 3:38 PM CATTLE KILLER 0.1 mg ketamine (Ketalar) injection Intravenous, PRN, Starting on 05/15/24 at 1538, Until 05/15/24 at 1707, Anesthesia Intra-op $ Given 05/15/2024 4:13 PM CATTLE KILLER 10 mg $ Given 05/15/2024 3:38 PM CATTLE KILLER 25 mg lactated ringers infusion Intravenous, CONTINUOUS PRN, Starting on 05/15/24 at 1458, Until 05/15/24 at 1707, Anesthesia Intra-op $ New Bag/Syringe 05/15/2024 2:58 PM CATTLE KILLER lidocaine HCl (PF) (Xylocaine MPF) 2 % injection Intravenous, PRN, Starting on 05/15/24 at 1535, Until 05/15/24 at 1707, Anesthesia Intra-op $ Given 05/15/2024 3:37 PM CATTLE KILLER 50 mg midazolam (Versed) injection Intravenous, PRN, Starting on 05/15/24 at 1530, Until 05/15/24 at 1707, Anesthesia Intra-op $ Given 05/15/2024 3:30 PM CATTLE KILLER 2 mg ondansetron (Zofran) injection Intravenous, PRN, Starting on 05/15/24 at 1545, Until 05/15/24 at 1707, Anesthesia Intra-op $ Given 05/15/2024 3:45 PM CATTLE KILLER 4 mg phenylephrine 100 mcg/mL injection Intravenous, PRN, Starting on 05/15/24 at 1621, Until 05/15/24 at 1707, Anesthesia Intra-op $ Given 05/15/2024 4:37 PM CATTLE KILLER 200 mcg $ Given 05/15/2024 4:27 PM CATTLE KILLER 100 mcg $ Given 05/15/2024 4:21 PM CATTLE KILLER 100 mcg propofol (Diprivan) injection Intravenous, CONTINUOUS PRN, Starting on 05/15/24 at 1534, Until 05/15/24 at 1707, Anesthesia Intra-op Rate Change 05/15/2024 4:05 PM CATTLE KILLER 75 mcg/kg/min 82.755 mL/hr Rate Change 05/15/2024 3:41 PM CATTLE KILLER 85 mcg/kg/min 93.789 mL /hr $ New Bag/Syringe 05/15/2024 3:37 PM CATTLE KILLER 100 mcg/kg/min 11 0.34 mL/hr propofol (Diprivan) injection Intravenous, PRN, Starting on 05/15/24 at 1537, Until 05/15/24 at 1707, Anesthesia Intra-op $ Given 05/15/2024 3:37 PM CATTLE KILLER 40 mg documented in this encounter Care Teams Equity Analyst Relationship Specialty Start Date End Date Nguyễn Bingham MD [address] [place] [address] PCP - General Family Medicine 07/03/23 documented as of this encounter
--- OUTSIDE RECORDS SUMMARY | 2024-06-08 00:01 | XMS_ITS | Encounter Summary ---
Author Organization [facility] Health Address [address] [place] [address] Care Team Providers Care Broom Builder Name Role Phone Nguyễn Bingham MD Primary Care Provider [phone] Reason for Visit * Auth/Cert (Routine) Specialty Diagnoses / Procedures Referred By Contac t Referred To Contact Diagnoses Foot Ulcer Referral ID Status Reason Start Date Expiration Date Visits Re quested Visits Authorized [id number] 1 1 Encounter Details Date Type Department Care Team (Late st Contact Info) Description 05/15/2024 3:00 PM SENIOR RESIDENT CARE DIRECTOR - 05/15/2024 4:32 PM SENIOR RESIDENT CARE DIRECTOR Surgery [facility] PERIOPERATIVE [address] [place] [address] Abby Quinn DPM [facility] [address] IRRIGATION/DEBRIDEMENT FOOT/ANKLE Surgery Details Date/Time Status Location OR Service Patient Class Case Class Case Type Trauma Case? 05/15/2024 3:00 PM Posted [facility] MAIN OR OR 01 Podiatry Inpatient Urgent < 24 Hrs Panel 1 Procedure LRB Anes Op Region Wound Class Comments IRRIGATION/DEBRIDEMENT FOOT/ANKLE Left MAC Foot Dirty or Infected Surgeon Surgeon Role Service Panel Abby Quinn DPM Primary Podiatry 1 Chi Hoffman DPM Surgeon Assisting Podiatry 1 documented in this encounter Social History Tobacco [...] Recorded Patient Health Questionnaire-2 Score 1 10/01/2023 [facility] - Occupational [...] any time in the past 12 m [facility], were you homeless or living in a halfway (including now)? No 05/13/2024 Sex and Gender Information Value Date Recorded Sex Assigned at Not on file Gender Identity Not on file Sexual Orientation Not on file documented as of this encounter Last Filed Vital Signs Vital Sign Reading Time Taken Comments Blood Pressure 140/79 05/15/2024 11:32 AM SENIOR RESIDENT CARE DIRECTOR Pulse 88 05/15/2024 11:32 AM SENIOR RESIDENT CARE DIRECTOR Temperature 36.9 ??C (98.5 ??F) 05/15/2024 1 1:32 AM SENIOR RESIDENT CARE DIRECTOR Respiratory Rate 20 05/15/2024 11:3 2 AM SENIOR RESIDENT CARE DIRECTOR Oxygen Saturation 97% 05/15/2024 4:30 AM SENIOR RESIDENT CARE DIRECTOR Inhaled Oxygen Concentration - - Weight 183.9 kg (405 lb 6.4 oz) 024 10:13 PM SENIOR RESIDENT CARE DIRECTOR Height 200.7 cm (6' 7 ) 05/13/2024 10:1 3 PM SENIOR RESIDENT CARE DIRECTOR Body Mass Index 45.67 05/13/2024 10:13 PM SENIOR RESIDENT CARE DIRECTOR documented in this encounter Functional Status Functional [...] M noncompliant Pt is a transfer from [facility]. Pt preseneted with LLE wound. He hasbeen [...] denied acute rehab. Patient was accepted to custodial facility. PICC line was placed on 05/24. Podiatry recommended partial weight- bearing through left forefoot with walker. He was discharged to facility with recommendation to follow up outpatient with his PCP, aws solution architect and Infectious Disease physician. He is to [...] results for input(s): INR in the last 41984 hours. VITALS/MENTAL STATUS/NOTIBLE EXAM FINDINGS Most recent [...] optimize healing. Bao can be purchased at [facility] located across from [facility] ([address] [place] [address]) for a reduced cost. supervisor drapery hanging is encouraged to prevent delivery fees, but if this isn't feasible it can be delivered to the home by calling [phone]. Zana Tolentino MD polyethylene glycol 3350 17 [...] evening meal vitamin D (ergocalciferol) 1.25 MG (90778 UT) capsule What changed: Another medication with [...] (one) capsule by mouth 3 times daily Lux Wayne APRN-YVETTE insulin lispro 100 UNIT/ML pen Commonly known [...] every day after a meal. Cassandra Moore, IDENTIFICATION OFFICER-BRAKER PASSENGER TRAIN TRUEplus Pen [place] 31G X 5 MM needle Generic drug: insulin pen needle STOP taking these medications amLODIPine 5 MG tablet Commonly known as: Norvasc calcium carbonate 1250 (500 Ca) MG tablet Commonly known as: Os-Wilfredo 500 cephalexin 500 MG capsule Commonly known as: Keflex Cholecalciferol 1.25 MG (95620 UT) famotidine 40 MG tablet Commonly known [...] Family Medicine Relationship: PCP - General [address] [facility] [address] Next Steps: Follow up Our records show your Primary Care Provider (PCP) is Nguyễn Bingham MD. Follow Up Instructions for Patient: Within 5 Days from Discharge Abby Quinn DPM Specialty: Podiatry [address] [facility] [address] [facility] [address] Next Steps: Follow up Follow Up Instructions for Patient: Within 5-10 Days from Discharge Hattie Liao MD Specialty: Infectious Disease, Internal Medicine [address] [facility] [address] [place] [id number] Next Steps: Follow up Follow Up Instructions for Patient: Within 5-10 Days from Discharge Contact information for after-discharge care Destination [address] [address] ISOLATION PRECAUTIONS No active isolations. Isolation due to No active infections. I spent 35 minutes in addition to direct patient care summarizing this patient's hospital stay, reviewing and updating the inpatient problem list, reviewing discharge medications, instructions, discussing discharge care planand discharge follow up labs/studies/doctor visits with the patient and or POA/family. Tereza Mcpherson MD OR RESIDENT CARE DIRECTOR documented in this encounter Discharge Instructions * Discharge Instructions* Tereza Mcpherson MD - 05/17/2024 3:41 PM SENIOR RESIDENT CARE DIRECTOR Images from the original note were not included. Please obtain weekly CBC, CMP, UA and sed rate and send results to Dr. Hattie Liao at fax number:[phone] Social Security Disability Assistance *These 2 agencies help individuals try and succeed in getting SSD. That is all they do. Very good resource to try, especially if you've been denied SSD in the past. [employer]. Mention Code [facility] for a discounted rate. [phone] ext: 222 or www.[employer] ALLSUP 465-141-5248 or www.Globa[employer] There are 3 ways to apply for SSD in [place]. You can call the main [facility] phone line for help at [phone] or schedule an appt with your local [facility] office (/ouzurk-axnwuhsy-pnpwzmxdhc-locations/[place]), or complete an application (http://www.[facility].gov/pgm/disability.htm). If you need help finding your local [facility] office call the number above or go to (https://secure.[employer].gov/apps6z/DIMITRIOS/fo001.jsp). To look into VA home care for your mother you can call Justina [phone] To look into Private Duty Services: for the Older [place] people: [place]: Senior Services Dept of Aging - They will provide the first 2 weeks free Homemaker services 5 days a week 5 hours a day then Pt will have to private pay. Senior Service of [facility] [place] ([facility]) [phone]; . [facility] AUSTYN [place] ([place]) [phone]; Community Care Program Agency [facility] on Aging ([facility]) [phone]; Clarita Mack [facility] ([facility]): [phone] [place] does have a program for younger people to help with services in the home. https://wr.[facility].[place].gov/wrpublic/wr/dynamic/referral.jsf Help thru the [place] Chapter in your area for your mother. Contact them norris: Contact Information Physical Address [address] [facility], [address] Kym Erazo LADI [address]Znowqnu Address [address] [place] [address]Mnaox Number You have been enrolled in [facility] [employer]'s Bread Basket Program. Please show this to the attendant at the [facility] and they will provide you with bag(s) of nonperishable food when you discharge and are heading home. The Gift Shop is open Thursday- 8am - 4pm and Thursday 7am - 3pm. 05/23/24: DIPIKA Jeffers Us referral for [facility] foodbank program. www.[facility] center[facility]bank.org or call [phone]. IDHS/ISHAAN Empowering People with Disabilities through Home Services-call number below if you do go back home so you can be assessed for possible lead worker of housekeeping and laundry to come in and help YOU at home with cooking, cleaning, laundry, errands, etc... The [place] Department of Human Services' Division of Rehabilitation Services (IDHS/DRS) is the state's lead agency serving persons with disabilities. Our staff work one-on-one with individuals who have disabilities and their families to empower them to reach their employment, education, and independent living goals. Through the Home Services Program, ISHAAN provides services to individuals with the most [...] be obtained on any IP hired by [facility]. Homemaker Services: Agency-based services for personal care and household tasks provided by trainedand professionally supervised staff. Home Health Services: BUILDING MAINTENANCE SUPERVISOR, SQUAD SERGEANT electrical continuity inspector services prescribed by the physician to meet [...] family crisis or emergency. Services may include congressional assistant, adult day care, homemaker or home health. [...] provides eligible persons who reside in a penitentiary the opportunity for integrated independent community living [...] less than nursing facility costs. Be a [facility] resident with [place] citizenship or show [...] and easily identifiable copy of the customer's [facility] Photo ID or valid Drivers License. Develop a person-centered service plan and assist in locating service providers. Provide alternative resource information and information on appeal rights if eligibility is not met. For more information: Call or visit your [place] Department of Human Services' Division of Rehabilitation Services Office. If you have questions about any [place] Department of Human Services (IDHS) program, you may call the automated helpline 24 hours a day at: (TTY) You may speak to a employer relations representative between: 8:00 a.m. - 5:30 p.m. Thursday - Thursday (except state holidays) For answers to your questions, you may also write: [place] Department of Human Services Office of Customer Support [address] [place] [phone] Visit our website at: www.[facility].or. Latanya LINDSEY, MPH, [facility] [phone] OR RESIDENT CARE DIRECTOR documented in this encounter Medications at Time [...] optimize healing. Bao can be purchased at [facility] Pharmacy located across from [facility] ([address] [place] [address]) for a reduced cost. supervisor drapery hanging is encouraged to prevent delivery fees, but if this isn't feasible it can be delivered to the home by calling [phone]. 05/16/2024 06/13/2024 pantoprazole EC (Protonix) 40 MG [...] mg subcutaneously every 7 days TRUEplus Pen Wayland 31G X 5 MM needle 06/19/2023 vitamin D, ergocalciferol, (Drisdol) 1.25 MG (39260 UT) capsule Take 1 (one) capsule by mouth every 7 days Takes on thursday documented as of this encounter Progress Notes * Rio Schmitz RN - 05/26/2024 1:04 PM CST Pt discharged to [facility]. Pt unhooked from wound vac, and wound vac supplies returned. Wet to dry dressing in place. Pt's belonging gathered and given to EMS. [facility]. OR RESIDENT CARE DIRECTOR * Rio Schmitz RN - 05/26/2024 11:07 AM CST Report called to [facility]. Report given to Jesica. OR RESIDENT CARE DIRECTOR * Latanya Sims LCSW - 05/26/2024 8:29 AM CST Facility Transfer Note Level of Care: Skilled Rehab Payor Source: Managed Medicaid [place] Facility Name: (include name of person confirming admission): [facility]. Nina/admissions [phone] [place] Made Aware of Special Needs (if applicable): Yes; bariatric. Low air loss mattress, bariatric bed, bariatric BSC, bariatric walker, etc. May decide to d/c to [facility] SNF so he and his mother can both move into [place]. She is already there respite. RN Call Report to: [phone] going to room 103 RN Fax D/C Orders to: [phone] Transportation: [employer] ; Trip # [id number] 10 am picker feeder Certificate of Medical Necessity rationale: infected diabetic left foot ulcer, wound vac, IV, osteomyelitis of left food, CHRISTIE, ARF, DMII, HTN, Anemia, Anxiety, Depression, Diabetic neuropathy, GERD BPH, bariatric, high fall risk, weak and debilitated. Date/time of transfer: 05/26/24; picker feeder at noon Accepting MD: Dr. Miki Anand Completed and Signed [id number] (if applicable): not applicable Family/Other Notified of Transfer (name/phone): Extended Emergency Contact Information Primary Emergency Contact: CLARA HYATT Relation: Mother Secondary Emergency Contact: unknown(friend/pharmacist)Monse Mobile Relation: None *Patient is [facility]er feeder around noon. Authorization Skilled Care: Authorization for Transportation: Comments: SW added numerous resources to AVS for patient upon d/c. He is aware. Latanya Sims LCSW 05/26/2024 8:29 AM Extensions: [phone] or [phone] OR RESIDENT CARE DIRECTOR * Kang Sanders RN - 05/25/2024 10:48 [...] indep PWB L LE forefoot Outcome: Progressing OR RESIDENT CARE DIRECTOR * Christie Vasquez OT - 05/25/2024 3:16 PM CST Occupational Therapy Treatment Summary Chart reviewed for diagnosis and medical systems review. Nursing consented for OT. Explained purpose of OT and patient consented to participate in therapy. Admitted; 1. Ulcer of left foot with other severity ([facility]) 2. CHRISTIE (acute kidney injury) ([facility]) 3. Left foot infection 4. [...] this serves as the discharge summary. 7515 OR RESIDENT CARE DIRECTOR * Foster Naima, PT - 05/25/2024 2:56 PM CST Physical [...] this note serves as the discharge summary. Naima DPT x [phone] OR RESIDENT CARE DIRECTOR * Christel Barcenas RN - 05/25/2024 2:49 PM CST Care Coordination Progress Note Expected Discharge Date: 05/26/2024 Discharge Plan: SNF at [facility]. Medically stable for DC. SW following for placement. Facility able to accept 05/26 10am. Family Support (Name and Phone): Extended Emergency Contact Information Primary Emergency Contact: CLARA HYATT Relation: Mother Secondary Emergency Contact: unknown(friend/pharmacist)Monse reBuy.de Relation: None Transportation at Discharge: (cab or ambulance): READMISSION RISK SCORE is 11 at 2:49 PM 05/25/2024.: Name: Christel Barcenas RN Case Manager OR RESIDENT CARE DIRECTOR * Latanya Sims FIBERGLASS QUALITY TECHNICIAN - 05/25/2024 1:56 PM CST Facility Transfer Note Level of Care: Skilled Rehab Payor Source: Managed Medicaid Health system Facility Name: (include name of person confirming admission): [facility]. Nina/admissions [phone] [place] Made Aware of Special Needs (if applicable): Yes; bariatric. Low air loss mattress, bariatric bed, bariatric BSC, bariatric walker, etc. May decide to d/c to [facility] after SNF so he and his mother can both move into [place]. She is already there respite. RN Call Report to: [phone] going to room 103 RN Fax D/C Orders to: [phone] Transportation: [employer] ; Trip # [id number] 10 am picker feeder Certificate of Medical Necessity rationale: infected diabetic left foot ulcer, wound vac, IV, osteomyelitis of left food, CHRISTIE, ARF, DMII, HTN, Anemia, Anxiety, Depression, Diabetic neuropathy, GERD BPH, bariatric, high fall risk, weak and debilitated. Date/time of transfer: 05/26/24; picker feeder at 10am Accepting MD: HADLEY Completed and Signed [id number] (if applicable): not applicable Family/Other Notified of Transfer (name/phone): Extended Emergency Contact Information Primary Emergency Contact: CLARA HYATT Relation: Mother Secondary Emergency Contact: unknown(friend/pharmacist)Monse Mobile Relation: None *Patient is aware of d/c tomorrow morning to SNF Authorization Skilled Care: Authorization for Transportation: Comments: SW added numerous resources to AVS for patient upon d/c. He is aware. Latanya Sims LCSW, ROUTER OPERATOR PIN, MPH Extensions: [phone] or [phone] OR RESIDENT CARE DIRECTOR * Abby Quinn DPM - 05/25/2024 1:40 [...] (Diabetic Use) oral gel, Oral, PRN HYDROcodone-acetaminophen (Porum) 5-325 MG tablet 1 tablet, Oral, q4h [...] results for input(s): INR in the last 40369 hours. No results for input(s): PT in the last 45098 hours. No results for input(s): PTT in the last 95923 hours. GENERAL: Conversant; NAD PSYCHE: Alert and [...] digital tracings are pulsatile. Gerry Garcia MD, [facility], Vascular & Interventional radiologist, reviewed the images [...] Labs reviewed - ID/ IM to determine ginner helper Antibiotic therapy. S/P Surgical Debridement of left [...] the wound center with me here at [facility] or with his home Personnel And Payroll Technician/ wound care physician within 2 weeks of discharge. Patient is at high risk for limb loss. OR RESIDENT CARE DIRECTOR * Latanya Sims LCSW - 05/25/2024 1:06 PM CST Social Work Progress Note *medically ready as of 05/23/24. Doctor did not want to do the P2P. Did not feel patient was a candidate for AR; therefore, SW continued to work on SNF back up thru his Health system medicaid. Discharge Plan Disposition: plan is going to be SNF/[facility]. . DIPIKA called [facility] and got the CM email: [email or web address] The rep will request again that Sally reach out to me for d/c planning assistance since she is his CM with [facility]. Ref: [id number]. SW received a call from Sally/CYNTHIA montchanin. [phone]. DIPIKA was in the room with cristobal at the time as well. CYNTHIA was not able to provide a HH listing of agencies by him in network, said she doesn't have access to that. I inquired about if SNF is covered and she was unable to answer that as well. Said I would need to call [facility] customer service. I asked her about possible lead worker of housekeeping and laundry services for him. She said I can put a request into [facility] over on [place] side which is like Dept of Family [...] currently at, after his SNF stay at [facility]. DIPIKA updated Nina/admissions at [facility] about possible plan as well to go directly to [facility] from them once done with SNF. SNF is ordering bariatric bed with low airloss mattress, bariatric beside commode, bariatric walker so he can work with therapy there. Does not need CPAP. Has not worn one since here. DIPIKA asked nursing to set picker feeder for tomorrow at 10am. Transportation: [facility] can bill [facility] insurance: infected diabetic left foot ulcer, [...] to 07/01/24 (tentatively). Nextoption is SNF/[facility]. He is open to that but would like to speak with his mother.We called [facility] and for activities to call me back [facility] so he can speak with her. SW asked facility about fan balancer for his mother's phone. They found a fan balancer for her to use and charged phone and she was able to call and speak with him today. He's going to have to give up his 2 cats, blackie who is about 10 and whitbeny who is about 8. He loves them dearly; but he has his pharmacist/friend/Monse who is helping to try and find the cats a new home. She's a pharmacist at [facility] in [place], [place]. He is paying her to go by in the meantime and feed them and provide water, etc. They have never had their shots. While I was in the room he called his bank/[facility] with poultry killer/Jes. Jes was on speaker phone and sounded very close and concerned about Cristobal. [facility] so they know one another well. Apparently, Jes is speaking with some of his coworkers to see if anyone at the [facility] is willing to take the cats. Patient asked for $20,000 to be moved from their money market account to his checking account. Jes will do so, but jes reminded him that there is already $23,000 in the checking. Rene explained that his mother is going to need to stay in [place] at least until Rene is finished with [...] him to 1. Start by going to [facility] at [facility]. While there he can work with their SS worker and look into realtors over there who can maybe help sell their home, etc and he can just move into [place] with his mother. He seemed to like that idea. I explained, if he ever gets better down the road, or if whenever his mother passes, if he's strong enough to move out then he can look into that and get a new accessible apt. Just take one day at a time. Right now working on getting himto the SNF tomorrow with picker feeder around 10am. They are ordering all his [...] assessed. Name/Phone number: Latanya Sims LCSW , ROUTER OPERATOR PIN, MPH Extensions: [phone] or [phone] OR RESIDENT CARE DIRECTOR * Emmanuelle Barragan RN - 05/25/2024 12:58 PM CST New consult placed for traumatic abrasion to scrotum during transfer to commode. Skin with partial thickness skin loss. Dailey. Zinc spray applied by nursing which is [...] Trauma Type: Single;Abrasion(s) Location: Scrotum Site Assessment Dailey Exudate Description Scant;Serosanguinous Dressing/Treatment Open to air;Moisture barrier cream with zinc Dressing Status Not Applicable OR RESIDENT CARE DIRECTOR * Chi HoffmanGRETTA - 05/25/2024 12:39 PM [...] Labs reviewed - ID/ IM to determine usp Antibiotic therapy. S/P Surgical Debridement of left [...] Labs reviewed - ID/ IM to determine ginner helper Antibiotic therapy. S/P Surgical Debridement of left [...] weight bearing through left forefoot with walker. OR RESIDENT CARE DIRECTOR * Tereza Mcpherson MD - 05/25/2024 11:24 [...] Full Tereza Mcpherson MD 05/25/2024 11:25 AM OR RESIDENT CARE DIRECTOR * Rio Schmitz RN - 05/25/2024 10:46 [...] to engage in desired activity. Outcome: Progressing OR RESIDENT CARE DIRECTOR * Sherrell Deal - 05/25/2024 9:26 AM CST Patient provided list of in-network home health care. Home Health Referrals have been initiated based on patient's choice: Continued Care and Services - Admitted Since 05/13/2024 Destination Service Provider Request Status Selected Services Address Phone Fax Patient Preferred [facility] Accepted -- [address] [facility] [address] [phone] -- Internal Comment last updated by Latanya Sims, [facility] 05/23/2024 0853 05-20-24 However, per Nina/admissions [phone], can only do IV Q24. [facility] -- [address], [facility] [phone] -- [facility] Pending - Request Sent -- [address] [facility] [id number] -- [facility] Pending - Request Sent -- [address] [facility] [phone] -- [facility] Pending - Request Sent -- [address] [phone] -- [facility] Declined Facility full -- [address] [place] [phone] -- [facility] Declined -- [address] [address] [phone] -- Home Medical Care Service Provider Request Status Selected Services Address Phone Fax Patient Preferred [facility] Pending - Request Sent -- [address] [facility], [facility] [address] [phone] -- [facility] Pending - Request Sent -- [address] [facility] [address] [phone] -- [facility] Pending - Request Sent -- [address] [facility] [phone] -- [facility] (formerly [facility]) Pending - Request Sent -- [address] [facility] [phone] -- [facility] Pending - Request Sent -- [address], [facility] [phone] -- OR RESIDENT CARE DIRECTOR * Hattie Liao MD - 05/25/2024 9:21 [...] results for input(s): CDIFFTOXINAB in the last 43772 hours. No results for input(s): SEDRATE in the last 68612 hours. No results for input(s): CRP in the last 49220 hours. Recent Labs Component Name 05/14/24 0403 [...] CBC, CMP, UA, sed rate. Fax results [phone] Discussed with RN and SW Hattie Liao MD OR RESIDENT CARE DIRECTOR * Kang Sanders RN - 05/24/2024 11:10 [...] and non-pharmacological pain management strategies. Outcome: Progressing OR RESIDENT CARE DIRECTOR * Abby Quinn DPM - 05/24/2024 6:01 [...] (Diabetic Use) oral gel, Oral, PRN HYDROcodone-acetaminophen (Porum) 5-325 MG tablet 1 tablet, Oral, q4h [...] results for input(s): INR in the last 58781 hours. No results for input(s): PT in the last 78460 hours. No results for input(s): PTT in the last 77924 hours. GENERAL: Conversant; NAD PSYCHE: Alert and [...] digital tracings are pulsatile. Gerry Garcia MD, [facility], Vascular & Interventional radiologist, reviewed the images [...] Labs reviewed - ID/ IM to determine usp Antibiotic therapy. S/P Surgical Debridement of left [...] the wound center with me here at [facility] or with his home Personnel And Payroll Technician/ wound care physician within 2 weeks of discharge. Patient is at high risk for limb loss. OR RESIDENT CARE DIRECTOR * Javier Alcazar RD/CAYETANO - 05/24/2024 3:50 [...] Stools: Stools (# of stools): 1 (05/24/24 0496) Stool Appearance : Loose;Soft (05/24/24 4234) Stool Amount: Small (05/24/24 1534) Skin/Wound: LLE wound Estimated Needs: KCAL: 6873-2003 kcals (11-14 kcal/kg of ABW) Protein (g): [...] results for input(s): MAGNESIUM in the last 72971 hours. Recent Labs Component Name 05/18/24 0338 [...] (Diabetic Use) oral gel, Oral, PRN HYDROcodone-acetaminophen (Porum) 5-325 MG tablet 1 tablet, Oral, q4h [...] current goal Javier Vincent MS, RD/LD Ascom 0920 OR RESIDENT CARE DIRECTOR * Tereza Mcpherson MD - 05/24/2024 3:29 [...] partial weight-bearing through left forefoot with walker. #CHRSITIE: Last creatinine less than 1 2022. Patient [...] Full Tereza Mcpherson MD 05/24/2024 3:32 PM OR RESIDENT CARE DIRECTOR * Tom Bland - 05/24/2024 2:52 PM CST Route Agent visited with patient just shortly after the mental health social worker had been there with patient. Patient was distressed regarding future living situation. Patient wants to get home to be with their Mother and their cats. Patient is going to need some rehab and therapy to get back to walking and putting pressure on leg and left foot. Route Agent offered a prayer with patient. Patient was emotional and discouraged at this time. After prayer Route Agent blessed the patient and said they would [...] Plan/Outcome Plan Will Remain Available if Requested OR RESIDENT CARE DIRECTOR * Dexter Cotto OT - 05/24/2024 2:01 [...] Mobility: Bed Mobility: Supine to Sit: Modified [place] Sit to Supine: Stand By Assist;Requires Verbal [...] as the discharge summary. RALEIGH Renteria/Steffi [phone] OR RESIDENT CARE DIRECTOR * Alma Rosa Barclay, PT - 05/24/2024 [...] walker. Bed Mobility: Supine to Sit: Modified [place] Sit to Supine: Activity Does Not Occur [...] serves as the discharge summary. Pastora VEE 1805 OR RESIDENT CARE DIRECTOR * Christel Barcenas RN - 05/24/2024 12:40 PM CST Care Coordination Progress Note Expected Discharge Date: 05/25/2024 Discharge Plan: TBD pt verbalize he wants to go home. Team recommendations are inpatient rehabilitation Per AR liaison Anca Bonilla request voicemail: [phone] Deadline: 5 calendar days from receipt of [...] CLARA HYATT Relation: Mother Secondary Emergency Contact: unknown(friend/pharmacist),Monse Mobile Relation: None Transportation at Discharge: (cab or ambulance): READMISSION RISK SCORE is 13 at 12:40 PM 05/24/2024.: Name: Christel Barcenas RN Case Manager OR RESIDENT CARE DIRECTOR * Latanya Sims, [facility] - 05/24/2024 11:41 AM CST Social Work Progress Note Discharge Plan Disposition: TBD. Update from Anca/[facility] [place] is req a P2P in order to determine for him to go to [place] or not. Team updated. P2P call at [phone]. Jamie updated on him being partial WB LLE with boot and walker. We will wait for PT note and thenhave doctor call for P2P. Deadline: 5 calendar days from receipt of denial which was received at 436pm on 05/23 PICC line placed this morning so PT cannot see him post 4 hours of line placement. Will try and seehim this afternoon. SW called [employer] insurance [phone]. Found out that he DOES have a CM named Sally. The rep onthe phone with me sent Sally an email with my information so Sally can reach out to me re: d/c assistance. Transportation: ambulance. [employer]. Anticipated Discharge Date: 05/25/2024 Contacts: Extended [...] out if he has a CM thru [employer]. He stated he does, but he cannot recall her name. Maybe she can assist with d/c. I encouraged him to work with PT when they come in and give 110% so we can send to his insurance and try to get them to approve AR. He does NOT want LTC. Comments: Name/Phone number: Latanya Sims LCSW , ROUTER OPERATOR PIN, MPH Extensions: [phone] or [phone] OR RESIDENT CARE DIRECTOR * Rio Schmitz, ARYAN - 05/24/2024 11:35 AM CST Problem: Fall [...] integrity remains intact Description: INTERVENTIONS: Outcome: Progressing OR RESIDENT CARE DIRECTOR * Ursula Grider RN - 05/24/2024 11:30 AM CST Images from the original note were not included. Wound/deputy building guard: Consultation for wound/skin care recommendations. Electronic record reviewed. Bedside assessment completed. According to physician's documented H&P upon admission Chief Complaint Foot pain History of Present Ilness 43yo M noncompliant Pt is a transfer from [facility]. Pt preseneted with LLE wound. He hasbeen [...] 2. Elevate LLE 3. Optimize Nutrition- Clinical Rejector Consult 4. DM Management- Tight Glucose Control [...] foam Additional Treatment Mepitel in wound base OR RESIDENT CARE DIRECTOR * Alma Rosa Barclay, PT - 05/24/2024 11:13 AM CST Attempted to see patient for physical therapy. Unable to complete visit due to patient has PICC line placed at 10:30- he is NWB R UE post procedure. PT contacted vascular surgery for specific orders when patient can resume WB R UE on ww. Pastora PT 7958 OR RESIDENT CARE DIRECTOR * Anca Vines RN - 05/24/2024 9:19 AM CST [facility] rehab update: [facility] has denied pt for rehab P2P request voicemail: [phone] Deadline: 5 calendar days from receipt of denial which was received at 436pm on 05/23 Rationale- does not meet their criteria (does not have medically intensive condition that requires intensive rehab) AR has notified team. Thank you for referral, Anca Vines RN, BSN, [place] Clinical Liaison [facility] cell: [phone] OR RESIDENT CARE DIRECTOR * Hattie Liao MD - 05/24/2024 9:07 [...] results for input(s): CDIFFTOXINAB in the last 21085 hours. No results for input(s): SEDRATE in the last 07192 hours. No results for input(s): CRP in the last 78839 hours. Recent Labs Component Name 05/14/24 0403 [...] CBC, CMP, UA, sed rate. Fax results [phone] Discussed with mental health social worker Hattie Liao MD OR RESIDENT CARE DIRECTOR * Manpreet Stuart MD - 05/23/2024 3:17 [...] (Diabetic Use) oral gel, Oral, PRN HYDROcodone-acetaminophen (Porum) 5-325 MG tablet 1 tablet, Oral, q4h [...] # BPH, POA == Continue Flomax Obesity -Rejector following WEST -CPAP at night DVT prophylaxis :Heparin sq Dispo: AR. Manpreet Stuart M.D [facility]. Internal Medicine OR RESIDENT CARE DIRECTOR * Abby Quinn DPM - 05/23/2024 2:38 [...] (Diabetic Use) oral gel, Oral, PRN HYDROcodone-acetaminophen (Porum) 5-325 MG tablet 1 tablet, Oral, q4h [...] results for input(s): INR in the last 35662 hours. No results for input(s): PT in the last 00020 hours. No results for input(s): PTT in the last 36790 hours. GENERAL: Conversant; NAD PSYCHE: Alert and [...] Labs reviewed - ID/ IM to determine usp Antibiotic therapy. S/P Surgical Debridement of left [...] is at high risk for limb loss. OR RESIDENT CARE DIRECTOR * Dexter Cotto OT - 05/23/2024 2:15 [...] activity orders. Thank you for the referral, YURIDIA RenteriaR/Steffi [phone] 05/23/2024 OR RESIDENT CARE DIRECTOR * Christel Barcenas RN - 05/23/2024 1:51 PM CST Care Coordination Progress Note Expected Discharge Date: 05/25/2024 Discharge Plan: AR vs SNF pending medical stability Barriers: CHRISTIE, PICC line placement, final antibiotic plan pending cultures 05/20 Family Support (Name and Phone): Extended Emergency Contact Information Primary Emergency Contact: CLARA HYATT [place] Relation: Mother Transportation at Discharge: (cab or ambulance): READMISSION RISK SCORE is 13 at 1:51 PM 05/23/2024.: Name: Christel Barcenas RN Case Manager OR RESIDENT CARE DIRECTOR * Katerina Weaver DO - 05/23/2024 10:46 [...] Pulse: 81 103 102 98 Resp: 18 Temp: 98.6 ??F (37 ??C) 98.5 ??F [...] results for input(s): MAGMGDL in the last 55578 hours. Recent Labs Component Name 05/23/24 0333 [...] (Diabetic Use) oral gel, Oral, PRN HYDROcodone-acetaminophen (Porum) 5-325 MG tablet 1 tablet, Oral, q4h [...] Discussed with Primary Team Katerina Weaver DO Office:[phone] Exchange: OR RESIDENT CARE DIRECTOR * Alma Rosa Bacrlay, PT - 05/23/2024 10:41 AM CST PT deferred treatment this am. Physician orders/ activity orders 05/22/2024> Patient should be complete bed rest with bathroom privileges. Physician/RN notified. PT will defer therapy pending updated activity orders. Thank you Pastora PT 7958 OR RESIDENT CARE DIRECTOR * Hattie Liao MD - 05/23/2024 10:04 [...] results for input(s): CDIFFTOXINAB in the last 64359 hours. No results for input(s): SEDRATE in the last 21707 hours. No results for input(s): CRP in the last 85632 hours. Recent Labs Component Name 05/14/24 0403 [...] Messaged with primary team Hattie Liao MD OR RESIDENT CARE DIRECTOR * Latanya Sims, FIBERGLASS QUALITY TECHNICIAN - 05/23/2024 9:06 AM CST Social Work Progress Note Discharge Plan Disposition: DIPIKA f/u with Anca/[facility]. AR insurance auth submitted on 05/18/24; however, Said there was a delay because the insurance listed on the face sheet stated commercial and he doesn't have commercial. Yes, he has a managed [place] plan; however, all of our face [...] her know that Yes[place]/rep [place] accepted in [facility] at both [facility] and [facility]. Jolly said that [facility] is currently full today (05/23/24). I let her know that our AR is apparently following him as first choice and SNF then back up. She said that they would not need a SNF auth from [employer]. I let her know that I do have a [employer] [facility] SNF auth fax number I was given [...] Comments: Name/Phone number: Latanya Sims LCSW , ROUTER OPERATOR PIN, MPH Extensions: [phone] or [phone] OR RESIDENT CARE DIRECTOR * Josephine Nation RN - 05/22/2024 11:26 [...] A while adhering to precautions Outcome: Progressing OR RESIDENT CARE DIRECTOR * Mason, José Luis Stevenson DPM - [...] (Diabetic Use) oral gel, Oral, PRN HYDROcodone-acetaminophen (Porum) 5-325 MG tablet 1 tablet, Oral, q4h [...] results for input(s): INR in the last 70047 hours. No results for input(s): PT in the last 26979 hours. No results for input(s): PTT in the last 57059 hours. GENERAL: Conversant; NAD PSYCHE: Alert and [...] (36.9 ??C) 88 16 138/82 93 % 05/21/24 2034 98.2 ??F (36.8 ??C) 89 20 140/83 [...] is at high risk for limb loss. OR RESIDENT CARE DIRECTOR * Gisela Rodríguez, PT - 05/22/2024 10:34 [...] alert Bed Mobility: Supine to Sit: Modified [place] Sit to Supine: Activity Does Not Occur [...] the discharge summary. Gisela Rodríguez, PT, DPT OR RESIDENT CARE DIRECTOR * Mignon Alvarez LPN - 05/22/2024 9:34 [...] integrity remains intact Description: INTERVENTIONS: Outcome: Progressing OR RESIDENT CARE DIRECTOR * Luis Alfredo Cisneros MD - 05/22/2024 [...] 5.2* 4.8 CHLORIDE 108* 110* 109* CO2 23 BUN 28* 29* 33* CREATININE 1.38* 1.48* 1.44* GLUCOSE 153* 179* 167* CALCIUM 8.6 8.8 8.6 Recent Labs Component Name 05/22/24 03005/21/24 0303 05/20/24 0309 05/14/24 0403 09/17/23 1247 ALBUMIN 1.8* 1.7* 1.7* - - ALKPHOS - - - - 84 ALT - - - - 11 AST - - - - 12 - = values in this interval not displayed. No results for input(s): CDIFFTOXINAB in the last 81106 hours. No results for input(s): SEDRATE in the last 04788 hours. No results for input(s): CRP in the last 40638 hours. Recent Labs Component Name 05/14/24 0403 [...] after last surgery Luis Alfredo Cisneros MD OR RESIDENT CARE DIRECTOR * Tamara Gordon OT - 05/22/2024 9:28 [...] Mobility: Bed Mobility: Supine to Sit: Modified [place] Sit to Supine: Activity Does Not Occur [...] - Right Upper Extremity: Within Functional Limits Director Of Billing Strength:Director Of Billing Strength - Right Upper Extremity: WFL LUE Assessment: AROM - Left Upper Extremity: Within Functional Limits Strength - Left Upper Extremity: Within Functional Limits Director Of Billing Strength:Director Of Billing Strength - Left Upper Extremity: WFL: Activity [...] as the discharge summary. YURIDIA Dunham [phone] OR RESIDENT CARE DIRECTOR * Manpreet Stuart MD - 05/22/2024 8:47 [...] 5.2* 4.8 CHLORIDE 108* 110* 109* CO2 23 24 23 BUN 28* 29* 33* CREATININE [...] (Diabetic Use) oral gel, Oral, PRN HYDROcodone-acetaminophen (Porum) 5-325 MG tablet 1 tablet, Oral, q4h [...] # BPH, POA == Continue Flomax Obesity -Rejector following WEST -CPAP at night DVT prophylaxis :Heparin sq Dispo: AR. VS SNF Manpreet Stuart M.D [facility]. Internal Medicine OR RESIDENT CARE DIRECTOR * Deanna Carmona RN - 05/22/2024 12:54 [...] membranes remain intact Description: INTERVENTIONS: Outcome: Progressing OR RESIDENT CARE DIRECTOR * Bravo Alvares DPM - 05/21/2024 12:52 [...] No family history on file. Data Vitals: 05/20/24200205/21/24 0040 05/21/24 0407 05/21/24 0911 BP: 116/78 [...] (Diabetic Use) oral gel, Oral, PRN HYDROcodone-acetaminophen (Porum) 5-325 MG tablet 1 tablet, Oral, q4h [...] results for input(s): INR in the last 90954 hours. No results for input(s): PT in the last 53165 hours. No results for input(s): PTT in the last 83587 hours. GENERAL: Conversant; NAD PSYCHE: Alert and [...] is at high risk for limb loss. OR RESIDENT CARE DIRECTOR * Mignon Alvarez LPN - 05/21/2024 9:16 [...] integrity remains intact Description: INTERVENTIONS: Outcome: Progressing OR RESIDENT CARE DIRECTOR * Katerina Weaver DO - 05/21/2024 9:03 [...] results for input(s): MAGMGDL in the last 88595 hours. Recent Labs Component Name 05/21/24 0303 [...] (Diabetic Use) oral gel, Oral, PRN HYDROcodone-acetaminophen (Porum) 5-325 MG tablet 1 tablet, Oral, q4h [...] Discussed with Primary Team Katerina Weaver DO Office:[phone] Exchange: OR RESIDENT CARE DIRECTOR * Manpreet Stuart MD - 05/21/2024 8:35 [...] (Diabetic Use) oral gel, Oral, PRN HYDROcodone-acetaminophen (Porum) 5-325 MG tablet 1 tablet, Oral, q4h [...] # BPH, POA == Continue Flomax Obesity -Rejector following WEST -CPAP at night DVT prophylaxis :Heparin sq Dispo: AR. VS SNF Manpreet Stuart M.D [facility]. Internal Medicine OR RESIDENT CARE DIRECTOR * James Link RCP - 05/21/2024 5:05 AM CST PT refused CPAP tonight. Told RT he would call if changes his mind. States he feels it is too much pressure OR RESIDENT CARE DIRECTOR * Dexter Cotto OT - 05/20/2024 2:34 PM CST Attempted to see pt for OT follow-up; currently [place] at DEBRIDEMENT FOOT WOUND WITH POSSIBLE GRAFT-LEFT (Foot) . Will attempt to see pt at a later time/date. Thank you, YURIDIA RenteriaR/L [phone] 05/20/2024 OR RESIDENT CARE DIRECTOR * Mignon Alvarez LPN - 05/20/2024 2:07 [...] integrity remains intact Description: INTERVENTIONS: Outcome: Progressing OR RESIDENT CARE DIRECTOR * Manpreet Stuart MD - 05/20/2024 1:16 [...] (Diabetic Use) oral gel, Oral, PRN HYDROcodone-acetaminophen (Porum) 5-325 MG tablet 1 tablet, Oral, q4h [...] # BPH, POA == Continue Flomax Obesity -Rejector following WEST -CPAP at night DVT prophylaxis :Lovenox on hold for procedure Dispo: AR. VS SNF Manpreet Stuart M.D [facility]. Internal Medicine OR RESIDENT CARE DIRECTOR * Alma Rosa Barclay, PT - 05/20/2024 12:16 PM CST Attempted to see patient for physical therapy. Unable to complete visit due to patient declined. Reports he is scheduled for procedure- L LE today and does not feel up to PT at this time. PT will attempt to see patient at a later date. Pastora PT [phone] OR RESIDENT CARE DIRECTOR * Christel Barcenas RN - 05/20/2024 9:23 [...] 05/20/2024.: Name: Christel Barcenas RN Case Manager OR RESIDENT CARE DIRECTOR * Hattie Liao MD - 05/20/2024 9:17 [...] results for input(s): CDIFFTOXINAB in the last 44395 hours. No results for input(s): SEDRATE in the last 16310 hours. No results for input(s): CRP in the last 31081 hours. Recent Labs Component Name 05/14/24 0403 [...] havebeen missed upon review. Hattie Liao MD OR RESIDENT CARE DIRECTOR * Sohan Ramirez, [facility] - 05/20/2024 9:11 AM CST New Facility Referral Follow Up Social Work Daily Progress Thursday Level of Care (SNF/Medicaid NH/Rehab/Half-Way Care/LTACH): AR vs SNF DC Barrier: Plan [...] Selected Services Address Phone Fax Patient Preferred [facility] Accepted -- [address] [place] [address] [phone] -- [facility] Accepted -- [address], [facility] [address] -- Payer/Plan Subscriber Name Rel Member # Group # [employer] * RENE HYATT Self [id number] [address] Monitoring of facility responses: 05/18/2024 11:21 AM SW spoke with Admission Jolly ([phone]); beds open only at [facility]. They can only do Q12 for IV ABX; Extended Emergency Contact Information Primary Emergency Contact: CLARA HYATT Relation: Mother Comments/changes: Social Work Name: Sohan Ramirez ROUTER OPERATOR PIN, SHEEP SHEARER [facility] Phone: Desk: [phone]; Ascom: [phone] OR RESIDENT CARE DIRECTOR * Anca Vines RN - 05/20/2024 8:59 AM CST [facility] AR rehab update: AR is awaiting ins determination. AR will update once notified. Thank you for referral, Anca Vines RN, BSN, [place] Clinical Liaison [facility] cell: [phone] OR RESIDENT CARE DIRECTOR * Kang Sanders RN - 05/20/2024 2:46 [...] membranes remain intact Description: INTERVENTIONS: Outcome: Progressing OR RESIDENT CARE DIRECTOR * Abby Quinn DPM - 05/19/2024 6:04 [...] (Diabetic Use) oral gel, Oral, PRN HYDROcodone-acetaminophen (Porum) 5-325 MG tablet 1 tablet, Oral, q4h [...] results for input(s): INR in the last 43037 hours. No results for input(s): PT in the last 63722 hours. No results for input(s): PTT in the last 05936 hours. GENERAL: Conversant; NAD PSYCHE: Alert and [...] Thank you for asking [facility], [facility], Dr. Abby Quinn to participate in the care of your patient. Please call [phone] (Office), (Exchange), (Cell #, Call/ Text) with any questions or concerns. OR RESIDENT CARE DIRECTOR * Dexter Cotto OT - 05/19/2024 4:22 [...] Ulcer of left foot with other severity ([facility]) 2. CHRISTIE (acute kidney injury) ([facility]) 3. Left foot infection PPE [...] initially attempted with bariatric WW, transitioned to ANIMAL TREATMENT INVESTIGATOR to provide tactile/physical cues and to maintain NWB LLE. Mobility: Distance Ambulated (ft): (NWB LLE) ADL Tasks: Based on observation and clinical judgement Feeding: Complete [place] Oral Facial Hygiene: Set-up Bathing: Maximal Assistance [...] as the discharge summary. RALEIGH Renteria/Steffi [phone] OR RESIDENT CARE DIRECTOR * Manpreet Stuart MD - 05/19/2024 3:22 PM CST Progress Note Admit Date: 05/13/2024 4:58 PM Hospital Day: 6 Clinical Course 43 y/o WM with h/o Morbid obesity, DM, Depression, GERD, BPH who was transferred from H 2/ infected L foot ulcer and being [...] (Diabetic Use) oral gel, Oral, PRN HYDROcodone-acetaminophen (Porum) 5-325 MG tablet 1 tablet, Oral, q4h [...] # BPH, POA == Continue Flomax Obesity -Rejector following WEST -CPAP at night DVT prophylaxis :Lovenox Dispo: AR. Manpreet Stuart M.D [facility]. Internal Medicine OR RESIDENT CARE DIRECTOR * Alma Rosa Barclay, PT - 05/19/2024 [...] as the discharge summary. Pastora PT [phone] OR RESIDENT CARE DIRECTOR * Hattie Liao MD - 05/19/2024 2:35 [...] 284 300 Recent Labs Component Name 05/19/24 02105/18/248 05/17/24 0500 SODIUM 136 136 135* POTASSIUM [...] results for input(s): CDIFFTOXINAB in the last 81781 hours. No results for input(s): SEDRATE in the last 92208 hours. No results for input(s): CRP in the last 12090 hours. Recent Labs Component Name 05/14/24 0403 [...] antibiotics Discussed with nursing Hattie Liao MD OR RESIDENT CARE DIRECTOR * Mary Roach, JR/LD - 05/19/2024 1:07 PM CST Images from [...] allergies Last % Meal Taken: 100 % (05/19/24 09) 48 hr PO INTAKE % Meal Taken Av % Min: 80 % Max: 100 % Current supplement order: Bao BID Supplement(s) Consumed- Last 48 hours None Pain affecting intake: No Chewing/Swallowing: None GI Concerns: None Stools: Stool Appearance : Soft (05/19/24 09) Stool Amount: Small (05/19/24954) Skin/Wound: LLE wound Estimated Needs: KCAL: 6996-7724 kcals (11-14 kcal/kg of ABW) Protein (g): [...] results for input(s): MAGNESIUM in the last 79817 hours. Recent Labs Component Name 05/18/24 0338 [...] (Diabetic Use) oral gel, Oral, PRN HYDROcodone-acetaminophen (Porum) 5-325 MG tablet 1 tablet, Oral, q4h [...] RD/CAYETANO, PhD 05/19/2024 1:12 PM Ascom 4720 OR RESIDENT CARE DIRECTOR * Katerina Weaver DO - 05/19/2024 12:56 [...] Data Recent Labs Component Name 05/18/24 0338 12/03/31 94605/16/24 0309 WBC 14.5* 15.5* 21.7* HGB 7.7* [...] results for input(s): MAGMGDL in the last 90891 hours. Recent Labs Component Name 05/19/2421505/18/2433705/16/24 030 [...] taking: Reported on 10/08/2023) Cholecalciferol 1.25 MG (19811 UT) Take 50,000 Units by mouth Two [...] mg subcutaneously every 7 days TRUEplus [place] 31G X 5 MM needle Trulicity 1.5 MG/0.5ML injection (Patient not taking: Reported on 05/18/2024) vitamin D, ergocalciferol, (Drisdol) 1.25 MG (75091 UT) capsule Take 1 (one) capsule by mouth every7 days Takes on thursday vitamin D, ergocalciferol, (Drisdol) 1.25 MG (38772 UT) capsule (Patient not taking: Reported on [...] (Diabetic Use) oral gel, Oral, PRN HYDROcodone-acetaminophen (Porum) 5-325 MG tablet 1 tablet, Oral, q4h [...] Dr Meg Richardson MD PGY-3 Internal Medicine [facility] OR RESIDENT CARE DIRECTOR * Kang Sanders RN - 05/19/2024 12:09 [...] membranes remain intact Description: INTERVENTIONS: Outcome: Progressing OR RESIDENT CARE DIRECTOR * Abby Quinn DPM - 05/18/2024 5:32 [...] (Diabetic Use) oral gel, Oral, PRN HYDROcodone-acetaminophen (Porum) 5-325 MG tablet 1 tablet, Oral, q4h [...] results for input(s): INR in the last 61001 hours. No results for input(s): PT in the last 34764 hours. No results for input(s): PTT in the last 11816 hours. GENERAL: Conversant; NAD PSYCHE: Alert and [...] Thank you for asking [facility], [facility], Dr. Abby Quinn to participate in the care of your patient. Please call [phone] (Office), (Exchange), (Cell #, Call/ Text) with any questions or concerns. OR RESIDENT CARE DIRECTOR * Alma Rosa Barclay, PT - 05/18/2024 [...] as the discharge summary. [facility] [phone] OR RESIDENT CARE DIRECTOR * Fredy Choi - 05/18/2024 2:05 PM [...] - Dynamic: Fair ADL Tasks: Feeding: Complete [place] Oral Facial Hygiene: Set-up Bathing: Maximal Assistance [...] as the discharge summary. Fredy Choi, OT/S OR RESIDENT CARE DIRECTOR * Manpreet Stuart MD - 05/18/2024 1:17 [...] (Diabetic Use) oral gel, Oral, PRN HYDROcodone-acetaminophen (Porum) 5-325 MG tablet 1 tablet, Oral, q4h [...] # BPH, POA == Continue Flomax Obesity -Rejector following DVT prophylaxis :Lovenox Dispo: SNF Manpreet Stuart M.D [facility]. Internal Medicine OR RESIDENT CARE DIRECTOR * Kimberly Dietz V., PharmD - 05/18/2024 [...] Prep) PADS Yes No Cholecalciferol 1.25 MG (49118 UT) Not Taking Yes No Sig: Take 50,000 Units by mouth Two times a week Patient not taking: Reported on 05/18/2024 Lancets (ONETOUCH DELICA PLUS 33G EXTRA FINE LANCET) Yes No Lantus SoloStar pen Yes No Sig: Inject 20 (twenty) Units subcutaneously at bedtime TRUEplus Pen [place] 31G X 5 MM needle Yes No [...] days vitamin D, ergocalciferol, (Drisdol) 1.25 MG (97350 UT) capsule Not Taking Yes No Patient not taking: Reported on 05/18/2024 vitamin D, ergocalciferol, (Drisdol) 1.25 MG (86390 UT) capsule Yes Yes Sig: Take 1 (one) capsule by mouth every 7 days Takes on thursday Facility-Administered Medications: None ASSESSMENT AND PLAN The ELECTRICAL REPAIRER medication list has been updated and reflects the changes noted above. Kimberly Dietz, PharmD 05/18/2024 OR RESIDENT CARE DIRECTOR * Katerina Weaver DO - 05/18/2024 11:32 [...] results for input(s): MAGMGDL in the last 25640 hours. Recent Labs Component Name 05/18/24 0338 [...] taking: Reported on 10/08/2023) Cholecalciferol 1.25 MG (84097 UT) Take 50,000 Units by mouth Two [...] a meal. 90 capsule 4 TRUEplus Pen [place] 31G X 5 MM needle Trulicity 1.5 MG/0.5ML injection vitamin D, ergocalciferol, (Drisdol) 1.25 MG (38937 UT) capsule Intake/Output Summary (Last 24 hours) [...] (Diabetic Use) oral gel, Oral, PRN HYDROcodone-acetaminophen (Porum) 5-325 MG tablet 1 tablet, Oral, q4h [...] Dr Meg Richardson MD PGY-3 Internal Medicine [facility] OR RESIDENT CARE DIRECTOR * Josephine Nation RN - 05/18/2024 11:25 [...] membranes remain intact Description: INTERVENTIONS: Outcome: Progressing OR RESIDENT CARE DIRECTOR * Sohan Ramirez LMSW - 05/18/2024 11:21 AM CST New Facility Referral Follow Up Social Work Daily Progress Level of Care (SNF/Medicaid NH/Rehab/[place] Representative Care/LTACH): AR vs SNF DC Barrier: Cannot do Q8 MUST be Q12 for IV ABX Poidatry review wound on Needs Picc line Special Needs: cefepime (Maxipime) 2,000 mg in 0.9% NaCl IV 50 mL IVPB Q8 (NEEDS TO BE CHANGED TO Q12) Service Provider Request Status Selected Services Address Phone Fax Patient Preferred [facility] Accepted -- [address] [place] [phone] -- [facility] -- [address] [facility] [id number] -- Payer/Plan Subscriber Name Rel Member # Group # [facility] PL[facility] * RENE HYATT Self [id number] [address] Monitoring of facility responses: 05/18/2024 11:21 AM SW spoke with Admission Jolly ([phone]); beds open only at [facility]. They can only do Q12 for IV ABX; Extended Emergency Contact Information Primary Emergency Contact: NASREENERICRADHACLARA Relation: Mother Comments/changes: Social Work Name: Sohan Ramirez ROUTER OPERATOR PIN, DONNA [facility] Phone: Desk: [phone]; Ascom: [phone] OR RESIDENT CARE DIRECTOR * Christel Barcenas RN - 05/18/2024 11:09 AM CST Care Coordination Progress Note Expected Discharge Date: 05/20/2024 Discharge Plan: AR vs SNF for back up plan. pt has 2 accepting facilities in [place]. SW followingfor placement if AR is denied. Barriers: debridement of L foot ulcer 05/15. podiatry following and final plan for further intervention? ID following and final plan for IVABT, if ginner helper needs PICC line placement. Family Support (Name and Phone): Extended Emergency Contact Information Primary Emergency Contact: CLARA HYATT Relation: Mother Transportation at Discharge: (cab or ambulance): READMISSION RISK SCORE is 14 at 11:33 AM 05/18/2024.: Name: Christel Barcenas RN Case Manager OR RESIDENT CARE DIRECTOR * Hattie Liao MD - 05/18/2024 10:41 [...] 136/82 Pulse: 85 88 86 87 Resp: 18 Temp: 98.5 ??F (36.9 ??C) 99.1 [...] results for input(s): CDIFFTOXINAB in the last 62914 hours. No results for input(s): SEDRATE in the last 99661 hours. No results for input(s): CRP in the last 94695 hours. Recent Labs Component Name 05/14/24 0403 [...] 6 weeks of antibiotics Hattie Liao MD OR RESIDENT CARE DIRECTOR * Kang Sanders RN - 05/18/2024 1:16 [...] membranes remain intact Description: INTERVENTIONS: Outcome: Progressing OR RESIDENT CARE DIRECTOR * Abby Quinn DPM - 05/17/2024 8:12 [...] Max:99.4 ??F (37.4 ??C) Filed Wts: 05/13/24 2384 Weight: (!) 183.9 kg (405 lb 6.4 [...] (Diabetic Use) oral gel, Oral, PRN HYDROcodone-acetaminophen (Porum) 5-325 MG tablet 1 tablet, Oral, q4h [...] results for input(s): INR in the last 61943 hours. No results for input(s): PT in the last 80133 hours. No results for input(s): PTT in the last 26120 hours. GENERAL: Conversant; NAD PSYCHE: Alert and [...] Thank you for asking [facility], [facility], Dr. Abby Quinn to participate in the care of your patient. Please call [phone] (Office), (Exchange), (Cell #, Call/ Text) with any questions or concerns. OR RESIDENT CARE DIRECTOR * Alma Rosa Barclay, PT - 05/17/2024 [...] Ulcer of left foot with other severity ([facility]) (primary encounter diagnosis) (N17.9) CHRISTIE (acute kidney injury) ([facility]) (L08.9) Left foot infection SUBJECTIVE: I was walking in the house without a walker or cane. I will do whatever I can to go home. Home Situation: Home Situation Type of Residence: Private Residence Living arrangement: Family Members (Lives with mother, who is currently in [facility]) Home Structure: One Story;Basement Bathroom : [...] as the discharge summary. [facility] PT 7958 OR RESIDENT CARE DIRECTOR * Dexter Cotto, OT - 05/17/2024 2:05 [...] Ulcer of left foot with other severity ([facility]) 2. CHIRSTIE (acute kidney injury) ([facility]) 3. Left foot infection PPE worn by staff: gloves Precautions: Fall Risk, NWB LLE, Lines SUBJECTIVE: I really want to keep my independence so that I can go back home Psychosocial: Patient Behaviors: (Calm, cooperative) Pt's goal for therapy: Regain functional independence. Occupational Profile/PLOF: Type of Residence: Private Residence Living arrangement: Family Members (Lives with mother, who is currently in [facility]) Home Structure: One Story;Basement Steps to [...] Strength - Right Upper Extremity: (grossly 3+/5) Director Of Billing Strength: Director Of Billing Strength - Right Upper Extremity: Able to actively grasp, decreased strength LUE Assessment: AROM - Left Upper Extremity: (~75% shoulder AROM) Strength - Left Upper Extremity: (grossly 3+/5) Director Of Billing Strength: Director Of Billing Strength - Left Upper Extremity: Able to actively grasp, decreased strength: Basic ADL's: Based on observation and clinical judgement Feeding: Complete [place] Oral Facial Hygiene: Set-up (Seated) Bathing: Moderate [...] as the discharge summary. RALEIGH Renteria/Steffi [phone] OR RESIDENT CARE DIRECTOR * Latanya Sims, [facility] - 05/17/2024 11:56 AM CST Social Work Progress Note Discharge Plan Disposition: goal is SNF/[facility]. PT and SW sent chat to podiatry [...] and IV antib (just pending PT/OT notes): [facility]. [facility]. [address] [place] [address]. [place] [address]. -yes accepted Nan [facility]: [phone] (f) [phone]-yes accepted [facility]: [phone] (f) [phone] [facility]. DIPIKA reached out to [facility]: [phone] (f) [phone] Spoke with Katy in the business office. Yes, his mother is there. Private pay for 15 days. I explained she's probably going to need to be there longer since he needs to go to a SNF more than likely. She said they accept [facility] for LTC but not SNF. My understanding is that some [facility] does cover SNF so I sent referrals to other places. She said that Clara is still able to communicate so if we needed to speak with her for some reason the staff there could help get her on a phone. We will keep them posted on his d/c. For SNF auth you will need to fax [facility] at: [phone] DIPIKA checked referrals from earlier. Transportation: ambulance. [facility]. Anticipated Discharge Date: 05/17/2024 Contacts: Extended Emergency Contact Information Primary Emergency Contact: CLARA HYATT Relation: Mother *Mother cannot be contacted. She has MS and is respite at [facility]: [phone] (f) [phone] Comments: SW added on AVS, private duty info for him and for his mother, SSD info, VA assist for mom at home, and [place] local chapter for resources for mom at home. Name/Phone number: Latanya Sims LCSW , ROUTER OPERATOR PIN, MPH Latanya Sims, FIBERGLASS QUALITY TECHNICIAN OR RESIDENT CARE DIRECTOR * Katerina Weaver DO - 05/17/2024 11:42 AM CST I have seen and examined the patient with the resident and I agree with the findings and plan of care as documented by the resident. In addition: Continue limited trial of IVF as patient has been increasing PO intake. Date of Service: 05/17/2024 Katerina Weaver, DO Renal Follow-Up Note Name: [...] results for input(s): MAGMGDL in the last 44239 hours. Recent Labs Component Name 05/16/24 0309 [...] taking: Reported on 10/08/2023) Cholecalciferol 1.25 MG (07661 UT) Take 50,000 Units by mouth Two [...] a meal. 90 capsule 4 TRUEplus Pen [place] 31G X 5 MM needle Trulicity 1.5 MG/0.5ML injection vitamin D, ergocalciferol, (Laurentol) 1.25 MG (25810 UT) capsule Intake/Output Summary (Last 24 hours) [...] Dr Meg Richardson MD PGY-3 Internal Medicine [facility] OR RESIDENT CARE DIRECTOR * Alma Rosa Barclay, PT - 05/17/2024 10:08 AM CST PT orders received. Current activity orders are patient bed bound with bathroom privileges- PT contacted Dr Quinn to clarify PT/OT and activity orders. PT/OT will initiate eval when orders and updated. Thank you [facility] PT 7958 OR RESIDENT CARE DIRECTOR * Rio Schmitz, ARYAN - 05/17/2024 9:38 [...] 05/16/20241955 by Rio Schmitz RN Outcome: Progressing OR RESIDENT CARE DIRECTOR * Hattie Liao MD - 05/17/2024 9:11 [...] results for input(s): CDIFFTOXINAB in the last 67772 hours. No results for input(s): SEDRATE in the last 46038 hours. No results for input(s): CRP in the last 60028 hours. Recent Labs Component Name 05/14/24 0403 [...] and tight glycemic control Hattie Liao MD OR RESIDENT CARE DIRECTOR * Manpreet Stuart MD - 05/17/2024 8:57 [...] # BPH, POA == Continue Flomax Obesity -Rejector following DVT prophylaxis :Lovenox Dispo: home vs SNF Manpreet Stuart M.D [facility]. Internal Medicine OR RESIDENT CARE DIRECTOR * Rio Schmitz RN - 05/16/2024 7:56 [...] to engage in desired activity. Outcome: Progressing OR RESIDENT CARE DIRECTOR * Abby Quinn DPM - 05/16/2024 7:11 [...] results for input(s): INR in the last 71327 hours. No results for input(s): PT in the last 36585 hours. No results for input(s): PTT in the last 68775 hours. GENERAL: Conversant; NAD PSYCHE: Alert and [...] the care of your patient. Please call [phone] (Office), (Exchange), (Cell #, Call/ Text) with any questions or concerns. OR RESIDENT CARE DIRECTOR * Zana Tolentino MD - 05/16/2024 11:18 [...] Lovenox D/w RN Zana Tolentino MD,MPH 05/16/2024 OR RESIDENT CARE DIRECTOR * Dexter Cotto OT - 05/16/2024 9:38 AM CST OT order noted, chart review complete. Attempted to see pt for OT initial eval, however pt with bedrest orders. Will attempt to see pt at a later time/date for initial eval when appropriate. Thank you for the referral, YURIDIA RenteriaR/L [phone] 05/16/2024 OR RESIDENT CARE DIRECTOR * Kim Wen, PharmD - 05/16/2024 9:30 [...] 45.67 kg/m??. Serum creatinine: 2.01 mg/dL (H) 05/16/24308 Estimated creatinine clearance: 86.1 mL/min (A) OR RESIDENT CARE DIRECTOR * Hattie Liao MD - 05/16/2024 9:23 [...] results for input(s): CDIFFTOXINAB in the last 51877 hours. No results for input(s): SEDRATE in the last 00870 hours. No results for input(s): CRP in the last 47480 hours. Recent Labs Component Name 05/14/24 0403 [...] and tight glycemic control Hattie Liao MD OR RESIDENT CARE DIRECTOR * Alma Rosa Barclay, PT - 05/16/2024 9:20 AM CST Attempted to see patient for physical therapy. Unable to complete visit due to patient has bedrest orders. Will attempt to see patient at a later date. [facility] PT 7958 OR RESIDENT CARE DIRECTOR * Emmanuelle Barragan RN - 05/16/2024 7:20 AM CST Wound RN consult placed on admission. Patient being managed by Podiatry. Wound Rn will defer to . Signing off. Reconsult if needed in the future. Emmanuelle Barragan RN 05/16/2024 7:21 AM OR RESIDENT CARE DIRECTOR * Luis Daniel Starks RN - 05/15/2024 [...] Outcome: Progressing Note: Pain managed via MAR OR RESIDENT CARE DIRECTOR * Esha Can RN - 05/15/2024 7:55 PM CST Care Coordination Initial Assessment Expected Discharge Date: 05/17/2024 Expected Discharge Disposition: Home or Self Care Transportation at Discharge: (cab or ambulance) Prior Level of Care: Home Prior to Admit Provider: Michael Provider-Dr. Teena Paulino Comments: PER PROVIDER-43 y/o WM with h/o Morbid obesity, DM, Depression, GERD, BPH who was transferred from [facility] 2/2 infected L foot ulcer. Initial BP 138/76, HR 91, Temp 100.3, lab work remarkable for WBC 22.3K, hb 8.2, Cr 1.31 , Xray showed Diffuse soft tissue swelling of the foot. Soft tissue gas within the hindfoot. Started on abx, ID & podiatry consulted Lives with: Family Members (Lives with mother, who is currently in [facility]) Physical Limitations: None Requires Assistance With: None Preferred Pharmacy: [facility] - [address] [facility] [phone] [address] [address] READMISSION RISK SCORE is 14 at 7:55 PM 05/15/2024. Met with patient Family Support (name and phone): Extended Emergency Contact Information Primary Emergency Contact: CLARA HYATT Relation: Mother Patient or employer relations representative requests care coordination reach out to family or caregiver listed above regarding discharge planning and at time of discharge? No Actual Level of Care/Dispostion Details Durable Medical Equipment Planning Equipment at Home: CPAP/BiPAP List DME pt. requires but does not have.: None Auto Research Engineer Referral: No Will continue to follow. For any questions or needs please contact: Head Girls Golf Coach/Social Work Name/Phone number: Esha Can RN OR RESIDENT CARE DIRECTOR * Lesa Rodríguez MD - 05/15/2024 4:09 [...] results for input(s): CDIFFTOXINAB in the last 87974 hours. No results for input(s): SEDRATE in the last 21900 hours. No results for input(s): CRP in the last 78546 hours. Recent Labs Component Name 05/14/24 0403 [...] and tight glycemic control Lesa Rodríguez MD OR RESIDENT CARE DIRECTOR * Zana Tolentino MD - 05/15/2024 11:47 [...] Lovenox D/w RN Zana Tolentino MD,MPH 05/15/2024 OR RESIDENT CARE DIRECTOR * Abby Quinn DPM - 05/15/2024 8:24 [...] results for input(s): INR in the last 98129 hours. No results for input(s): PT in the last 37947 hours. No results for input(s): PTT in the last 11231 hours. GENERAL: Conversant; NAD PSYCHE: Alert and [...] Thank you for asking [facility], [facility], Dr. Abby Quinn to participate in the care of your patient. Please call [phone] (Office), (Exchange), (Cell #, Call/ Text) with any questions or concerns. OR RESIDENT CARE DIRECTOR * Tamara Gordon, OT - 05/15/2024 7:50 AM CST Occupational Therapy OT orders received, chart review completed. Attempted to see for OT evaluation today, however Pt unavailable due to plan for I&D of L foot this AM. Will attempt to see Pt at a later time/date as appropriate, Pt will required WB and activity orders prior to OT evaluation. YURIDIA Dunham [phone] OR RESIDENT CARE DIRECTOR * Dalila Cerda, PT - 05/15/2024 7:12 AM CST Attempted to see patient for physical therapy. Unable to complete visit due to pt with plan for I&D of L foot this AM. PT will require WB and activity orders prior to evaluation. Will attempt to see patient at a later date. AD RodriguezT [phone] OR RESIDENT CARE DIRECTOR * Luis Daniel Starks RN - 05/14/2024 [...] Outcome: Progressing Note: Pain managed via MAR OR RESIDENT CARE DIRECTOR * Monse Hernandez OT - 05/14/2024 1:04 PM CST Occupational Therapy Attempted to see Pt for OT initial eval at this time. Per chart review, awaiting podiatry consult, also need WB orders and activity orders prior to initiation of eval. Per PT note, has been contacted to add orders. Will re-attempt at a later time/date as schedule permits. Annika, RALEIGH Shea/L [phone] OR RESIDENT CARE DIRECTOR * Zana Tolentino MD - 05/14/2024 1:01 [...] Lovenox D/w RN Zana Tolentino MD,MPH 05/14/2024 OR RESIDENT CARE DIRECTOR * Murali Live, PharmD - 05/14/2024 10:40 [...] adjust as needed. Molly Pablo, Pharm.D Ext [phone] ADDENDUM: Vancomycin peak level came back at [...] mcg/ml. Murali Live PharmD 05/15/2024 2:14 AM OR RESIDENT CARE DIRECTOR * Mignon Alvarez LPN - 05/14/2024 10:01 AM CST Problem: Fall Risk Goal: Fall risk and fall related injury risk are minimized (interventions related to the fall risk can be found in the flowsheet documentation) Outcome: Progressing Problem: Pain/Discomfort Goal: Patient exhibits reduced pain/discomfort as evidenced by pain scores Outcome: Progressing OR RESIDENT CARE DIRECTOR * Annamarie Beyer PT - 05/14/2024 8:48 AM CST PT orders noted. Pt has podiatry consult pending (will need weight bearing orders) and also needs activity orders. Message sent to Dr. Tolentino via ENOVIX secure chat. Will attempt again at a later date. MARIUSZ De Luna Ascom [phone] OR RESIDENT CARE DIRECTOR documented in this encounter H&P Notes * Nicanor Richter MD - 05/13/2024 8:26 PM CST History and Physical - Hospitalist Date of Admission: 05/13/2024 Patient's Primary Care Physician: Nguyễn Bingham MD Name: Rene Hyatt Age: [age] year old Sex: male Chief Complaint Foot pain History of Present Ilness 43yo M noncompliant Pt is a transfer from [facility]. Pt preseneted with LLE wound. He hasbeen [...] taking: Reported on 10/08/2023) Cholecalciferol 1.25 MG (30415 UT) Take 50,000 Units by mouth Two [...] a meal. 90 capsule 4 TRUEplus Pen [place] 31G X 5 MM needle Trulicity 1.5 MG/0.5ML injection vitamin D, ergocalciferol, (Drisdol) 1.25 MG (94479 UT) capsule No Known Allergies Review of [...] Lovenox. Nicanor Richter MD 05/13/2024 8:26 PM OR RESIDENT CARE DIRECTOR documented in this encounter Consult Notes * Emmanuelle Barragan RN - 05/25/2024 1:01 PM CSTAssociated Order(s): IP CONSULT TO WOUND NURSE See wound and skin note dated 05/25/24. Daily wound/skin care to scrotum to be assumed by primary nursing staff. Wound nurse will not follow at this time. Reconsult if skin/wounds worsen. Emmanuelle Barragan RN 05/25/2024 1:01 PM OR RESIDENT CARE DIRECTOR * Ursula Grider RN - 05/24/2024 11:30 AM CSTAssociated Order(s): IP CONSULT TO WOUND NURSE See Wound/Skin care note dated 05/24/24 Ursula Grider RN 05/24/2024 1:17 PM OR RESIDENT CARE DIRECTOR * Wilfredo Carlton, ARYAN - 05/24/2024 10:23 [...] See Doc Flow sheets for further details. OR RESIDENT CARE DIRECTOR * Javier Alcazar RD/CAYETANO - 05/23/2024 2:36 [...] Last 48 hours None Estimated Needs: KCAL: 9236-5507 kcals (11-14 kcal/kg of ABW) Protein (g): [...] Monitor per nutrition guidelines. Javier Vincent MS, RD/CAYETANO Ascom [phone] OR RESIDENT CARE DIRECTOR * Latanya Sims LCSW - 05/23/2024 9:36 AM CSTAssociated Order(s): IP CONSULT TO NUCLEAR RADIOLOGIST; IP CONSULT TO NUCLEAR RADIOLOGIST SOCIAL WORK CONSULT NOTE Reason for Consult: 1. From RN negative pressure therapy/discharge planning. SW already following for this. 2. From RN for food resources. Discharge Plan Disposition: aiming for AR/[facility] following. Needs to be cleared medically first and auth submitted for thru his [facility] [place] [facility] [place] Medicaid. Back up is SNF/[facility]. Transportation: [facility]. Anticipated Discharge Date: TBD Emergency Contacts: Extended Emergency Contact Information Primary Emergency Contact: CLARA HYATT Relation: Mother Comments: SW added food voucher to AVS today. DIPIKA also sent a referral to [facility] to [facility] norris. Thanks Latanya Sims LCSW 05/23/2024 9:38 AM Extensions: [phone] or [phone] OR RESIDENT CARE DIRECTOR Kaci Miller RD/CAYETANO - 05/21/2024 9:45 AM CSTAssociated Order(s): IP CONSULT TO NUTRITIONAL SERV Consult received in error. Pt is not currently ventilated. Kaci Vincent RD/CAY[place]O, [facility] 05/21/2024 9:46 AM Ascom [phone] Anca Arias, ARYAN - 05/18/2024 9:47 AM CSTAssociated Order(s): IP CONSULT TO PHYSICAL MED AND REHAB [facility] Rehab following. Will continue to follow for medical stability as well as ability to tolerate/participate in two therapies for possible admission acute rehab upon DC. UPDATE: ins auth was submitted. Thank you for the referral. Anca Vines, RN, BSN Clinical Liaison [facility] [phone] Latanya Gonsalez LCSW - 05/16/2024 11:34 AM CSTAssociated Order(s): IP CONSULT TO NUCLEAR RADIOLOGIST SOCIAL WORK CONSULT NOTE Reason for Consult: per MDR, May need [facility] SNF vs [place] vs Home. Depends on what [facility] covers. SW will contact to verify. 43 year old male. [facility] [place] [facility] [place] insurance. Arrived at [facility] due to the following: noncompliant Pt is a transfer from [facility]. Pt preseneted with LLE wound. He has been transferred for Podiatry services. Pt has been admitted for further evaluation and treatment. Dx: infected diabetic left foot ulcer, ARF, DMII, HTN, Anemia, Anxiety, Depression, Diabetic neuropathy, GERD BPH, Obesity, weak and debilitated. Discharge Plan Disposition: TBD. Per MDR. Home vs SNF or AR if insurance covers. SW called [facility] contact personand left a VM to see if his plan covers either AR or SNF. SW spoke with rep. They suggested just calling plan number. DIPIKA checked with a [facility] and [facility] accept [facility] Some around his area would be: [facility] Transportation: ambulance thru [facility]. Anticipated Discharge Date: TBD Emergency Contacts: Extended Emergency Contact Information Primary Emergency Contact: CLARA HYATT Relation: Mother *Room visit with patient. His mother, Clara, really is not able to be his emergency contact. She has advanced MS and he is her FT caregiver at home. Right now he said she's staying at [facility] and has been there the past 3 [...] sister named Rosaline Worley who lives in [place]. Neither he nor his mother want anything [...] be eligible for some home care thru [facility] [place] [address]. His cell: [phone]. I asked if he has SSD he [...] resources on AVS for private duty in [place], [place] Society contact, SSD information,VA home care contact info for his mother. Latanya Sims LCSW 05/16/2024 12:24 PM Extensions: [phone] or [phone] OR RESIDENT CARE DIRECTOR * Shilpi Schmitt RN - 05/16/2024 11:32 [...] can dwell up to 30 days per perishable fruit inspector's recommendation. Change dressing prn or at least weekly. Shilpi Schmitt RN 05/16/2024 11:33 AM OR RESIDENT CARE DIRECTOR * Mary Roach, JR/LD - 05/16/2024 10:02 AM CSTAssociated Order(s): IP [...] Last 48 hours None Estimated Needs: KCAL: [id number] kcals (11-14 kcal/kg of ABW) Protein (g): [...] RD/CAYETANO, PhD 05/16/2024 10:06 AM Ascom [phone] OR RESIDENT CARE DIRECTOR * Katerina Weaver DO - 05/16/2024 9:00 [...] obesity, T2DM, and BPH who presented to [facility] for L foot ulcer for further evaluation. [...] taking: Reported on 10/08/2023) Cholecalciferol 1.25 MG (94924 UT) Take 50,000 Units by mouth Two [...] a meal. 90 capsule 4 TRUEplus [place] 31G X 5 MM needle Trulicity 1.5 MG/0.5ML injection vitamin D, ergocalciferol, (Drisdol) 1.25 MG (96585 UT) capsule Current Medications-Reviewed and Documented below [...] results for input(s): MAGMGDL in the last 92020 hours. Assessment and Plan: #CHRISTIE -Unclear baseline [...] care of this patient. Katerina Weaver DO Office:[phone] Exchange: OR RESIDENT CARE DIRECTOR * Latanya Sims, [employer] QUALITY TECHNICIAN - 05/16/2024 8:27 AM CSTAssociated Order(s): IP CONSULT TO NUCLEAR RADIOLOGIST SOCIAL WORK CONSULT NOTE Reason for Consult: from RN. Negative pressure therapy. SW signing off. Does not follow for negative pressure therapy. If SW services are needed again, please feel free to put in a new consult. Thanks! Thanks Latanya Sims LCSW 05/16/2024 8:29 AM Extensions: [phone] or [phone] OR RESIDENT CARE DIRECTOR * Emmanuelle Barragan RN - 05/16/2024 7:21 AM CSTAssociated Order(s): IP CONSULT TO WOUND NURSE See wound and skin note dated 05/16/24. Emmanuelle Barragan RN 05/16/2024 7:21 AM OR RESIDENT CARE DIRECTOR * Lesa Rodríguez MD - 05/14/2024 5:14 [...] htn, anemia, anxiety, depression, bph, transfer from [facility]. Pt preseneted with LLE wound on 05/13 [...] results for input(s): CDIFFTOXINAB in the last 88809 hours. No results for input(s): SEDRATE in the last 09820 hours. No results for input(s): CRP in the last 72992 hours. Recent Labs Component Name 05/14/24 0403 CK 136 .No results for input(s): VANCOTROUGH , VANCOPEAK , VANCSERIES in the last 64570 hours. Invalid input(s): VANCORAND Recent Labs Component [...] and tight glycemic control Lesa Rodríguez MD OR RESIDENT CARE DIRECTOR * Abby Quinn DPM - 05/14/2024 2:37 PM CSTAssociated Order(s): [...] Patient was sent from a hospital in [place] to handle this problem. Family History: No [...] results for input(s): INR in the last 97873 hours. No results for input(s): PT in the last 30755 hours. No results for input(s): PTT in the last 70709 hours. GENERAL: Conversant; NAD PSYCHE: Alert and [...] the care of your patient. Please call [phone] (Office), (Exchange), (Cell #, Call/ Text) with any questions or concerns. OR RESIDENT CARE DIRECTOR * Yesenia Tan, JR/CAYETANO - 05/14/2024 12:24 [...] days post discharge to optimize wound healing Abo can be purchased at [facility] located across from [facility] ([address] [place] [address]) for a reduced cost. supervisor drapery hanging is encouraged to prevent delivery fees, butif this isn't feasible it can be delivered to the home by calling [phone]. Patient would benefit from outpatient nutrition counseling & follow up at discharge. To see an outpatient dietitian a provider will need to enter an order for MNT (Medical Nutrition Therapy) Ambulatory [id number] in [employer]. MNT is a covered Medicare benefit for diabetes and renal disease. Other insurance coverage varies, patients should check with their insurance providers to verify coverage. CLINICAL NUTRITION ASSESSMENT: Received consult for non-healing wound. Reviewed wound images. Visited patient at bedside and pt reported that for the past week his appetite was fair and he was eating home care administrator foods like soups. 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 Recent Labs Component Name 05/14/24 0403 [...] Morales RD/CAYETANO 05/14/2024 5:58 PM Weekend pager- [phone] OR RESIDENT CARE DIRECTOR documented in this encounter OR Notes * Brief Op Note - Abby Quinn DPM - 05/20/2024 4:04 PM CST Dictation # [id number] Surgeon: Abby Quinn DPM Assist: RN Pre [...] 15cm x 2.5cm) 2. Application of Amnio [place] Plus 5cm x 8cm (x 5). 3. [...] by adequate color to digits left foot. OR RESIDENT CARE DIRECTOR * Operative - Abby Quinn DPM - 05/20/2024 2:43 PM CST [facility] Operative Report PATIENT NAME: RENE HYATT MR#: [id number] DATE OF : 1980 CSN: [id number] DATE OF ADMISSION: 05/13/2024 ROOM#: [id number] DATE OF OPERATION: 05/20/2024 SURGEON: Abby Quinn D.P.M. BALANCE WHEEL ARM BURNISHER: ARYAN martínez. PREOPERATIVE DIAGNOSES: 1. Type 2 [...] adequate. NAME: RENE HYATT DICTATOR: ABBY QUINN D.P.MEdwin DICTATED FOR: /JUAN JOSE JOB ID: [id number] Operative Report OR RESIDENT CARE DIRECTOR * Brief Op Note - Abby Quinn DPM - 05/15/2024 3:51 PM CST Dictation # [id number] Surgeon: Abby Quinn DPM Assist: Chi Hoffman [...] by adequate color to digits left foot. OR RESIDENT CARE DIRECTOR * Operative - Abby Quinn DPM - 05/15/2024 3:51 PM CST [facility] Operative Report PATIENT NAME: RENE HYATT MR#: [id number] DATE OF : 1980 CSN: [id number] DATE OF ADMISSION: 05/13/2024 ROOM#: [id number] DATE OF OPERATION: 05/15/2024 SURGEON: Abby Quinn D.P.M. BALANCE WHEEL ARM BURNISHER: Chi Hoffman DPM. PREOP DIAGNOSES: 1. Type [...] to the hospital from a hospital in [place]. The patient relates having an open ulceration [...] D.P.M. DICTATED FOR: /JUAN JOSE JOB ID: [id number] Operative Report OR RESIDENT CARE DIRECTOR documented in this encounter Plan of Treatment Pending Results Name Type Priority Associated Diagnoses Date /Time CULTURE AFB+SMEAR Microbiology STAT Left foot infection 05/15/2024 4:33 PM SENIOR RESIDENT CARE DIRECTOR CULTURE FUNGUS OTHER+FUNGUS SMEAR Microbiology STAT Left foot infection 05/15/2024 4:34 PM SENIOR RESIDENT CARE DIRECTOR CULTURE FUNGUS OTHER+FUNGUS SMEAR Microbiology STAT Diagnosis unknown 05/20/2024 2:58 PM SENIOR RESIDENT CARE DIRECTOR Scheduled Orders Name Type Priority Associated Diagnoses [...] CARDIAC RHYTHM STRIP ORDER 05/27/2024 5:02 PM SENIOR RESIDENT CARE DIRECTOR GLUCOSE - POINT OF CARE Routine 05/26/20 11:48 AM SENIOR RESIDENT CARE DIRECTOR GLUCOSE - POINT OF CARE Routine 05/26/20 8:04 AM SENIOR RESIDENT CARE DIRECTOR GLUCOSE - POINT OF CARE Routine 05/25/20 8:59 PM SENIOR RESIDENT CARE DIRECTOR GLUCOSE - POINT OF CARE Routine 05/25/20 4:36 PM SENIOR RESIDENT CARE DIRECTOR GLUCOSE - POINT OF CARE Routine 05/25/20 11:36 AM SENIOR RESIDENT CARE DIRECTOR GLUCOSE - POINT OF CARE Routine 05/25/20 8:12 AM SENIOR RESIDENT CARE DIRECTOR GLUCOSE - POINT OF CARE Routine 05/24/20 7:43 PM SENIOR RESIDENT CARE DIRECTOR GLUCOSE - POINT OF CARE Routine 05/24/20 5:12 PM SENIOR RESIDENT CARE DIRECTOR GLUCOSE - POINT OF CARE Routine 05/24/20 12:30 PM SENIOR RESIDENT CARE DIRECTOR GLUCOSE - POINT OF CARE Routine 05/24/20 7:40 AM SENIOR RESIDENT CARE DIRECTOR RENAL FUNCTION PANEL AM Draw 05/24/2024 5:08 AM SENIOR RESIDENT CARE DIRECTOR GLUCOSE - POINT OF CARE Routine 05/23/20 7:43 PM SENIOR RESIDENT CARE DIRECTOR GLUCOSE - POINT OF CARE Routine 05/23/20 5:17 PM SENIOR RESIDENT CARE DIRECTOR GLUCOSE - POINT OF CARE Routine 05/23/20 11:46 AM SENIOR RESIDENT CARE DIRECTOR GLUCOSE - POINT OF CARE Routine 05/23/20 7:38 AM SENIOR RESIDENT CARE DIRECTOR RENAL FUNCTION PANEL AM Draw 05/23/2024 3:33 AM SENIOR RESIDENT CARE DIRECTOR GLUCOSE - POINT OF CARE Routine 05/22/20 9:22 PM SENIOR RESIDENT CARE DIRECTOR GLUCOSE - POINT OF CARE Routine 05/22/20 5:29 PM SENIOR RESIDENT CARE DIRECTOR GLUCOSE - POINT OF CARE Routine 05/22/20 12:15 PM SENIOR RESIDENT CARE DIRECTOR GLUCOSE - POINT OF CARE Routine 05/22/20 7:20 AM SENIOR RESIDENT CARE DIRECTOR RENAL FUNCTION PANEL AM Draw 05/22/2024 3:09 AM SENIOR RESIDENT CARE DIRECTOR GLUCOSE - POINT OF CARE Routine 05/21/20 8:39 PM SENIOR RESIDENT CARE DIRECTOR GLUCOSE - POINT OF CARE Routine 05/21/20 5:12 PM SENIOR RESIDENT CARE DIRECTOR GLUCOSE - POINT OF CARE Routine 05/21/20 11:59 AM SENIOR RESIDENT CARE DIRECTOR GLUCOSE - POINT OF CARE Routine 05/21/20 7:47 AM SENIOR RESIDENT CARE DIRECTOR RENAL FUNCTION PANEL AM Draw 05/21/2024 3:03 AM SENIOR RESIDENT CARE DIRECTOR GLUCOSE - POINT OF CARE Routine 05/20/20 7:40 PM SENIOR RESIDENT CARE DIRECTOR GLUCOSE - POINT OF CARE Routine 05/20/20 5:59 PM SENIOR RESIDENT CARE DIRECTOR GLUCOSE - POINT OF CARE Routine 05/20/20 4:42 PM SENIOR RESIDENT CARE DIRECTOR CULTURE FUNGUS OTHER+FUNGUS SMEAR STAT 05/20/2024 2:58 PM SENIOR RESIDENT CARE DIRECTOR Diagnosis unknown CULTURE WOUND+GRAM STAIN STAT 05/20/2024 2:58 PM SENIOR RESIDENT CARE DIRECTOR Diagnosis unknown CULTURE ANAEROBE STAT 05/20/2024 2:58 PM SENIOR RESIDENT CARE DIRECTOR Diagnosis unknown GLUCOSE - POINT OF CARE Routine 05/20/20 8:56 AM SENIOR RESIDENT CARE DIRECTOR RENAL FUNCTION PANEL AM Draw 05/20/2024 3:09 AM SENIOR RESIDENT CARE DIRECTOR GLUCOSE - POINT OF CARE Routine 05/19/20 10:16 PM SENIOR RESIDENT CARE DIRECTOR GLUCOSE - POINT OF CARE Routine 05/19/20 8:17 PM SENIOR RESIDENT CARE DIRECTOR GLUCOSE - POINT OF CARE Routine 05/19/20 5:11 PM SENIOR RESIDENT CARE DIRECTOR GLUCOSE - POINT OF CARE Routine 05/19/20 12:03 PM SENIOR RESIDENT CARE DIRECTOR GLUCOSE - POINT OF CARE Routine 05/19/20 7:29 AM SENIOR RESIDENT CARE DIRECTOR RENAL FUNCTION PANEL AM Draw 05/19/2024 2:16 AM SENIOR RESIDENT CARE DIRECTOR GLUCOSE - POINT OF CARE Routine 05/18/20 7:46 PM SENIOR RESIDENT CARE DIRECTOR GLUCOSE - POINT OF CARE Routine 05/18/20 6:07 PM SENIOR RESIDENT CARE DIRECTOR GLUCOSE - POINT OF CARE Routine 05/18/20 11:58 AM SENIOR RESIDENT CARE DIRECTOR GLUCOSE - POINT OF CARE Routine 05/18/20 9:20 AM SENIOR RESIDENT CARE DIRECTOR GLUCOSE - POINT OF CARE Routine 05/18/20 7:42 AM SENIOR RESIDENT CARE DIRECTOR CBC W/O DIFFERENTIAL AM Draw 05/18/2024 3:38 AM SENIOR RESIDENT CARE DIRECTOR RENAL FUNCTION PANEL AM Draw 05/18/2024 3:38 AM SENIOR RESIDENT CARE DIRECTOR GLUCOSE - POINT OF CARE Routine 05/17/20 11:12 PM SENIOR RESIDENT CARE DIRECTOR GLUCOSE - POINT OF CARE Routine 05/17/20 10:29 PM SENIOR RESIDENT CARE DIRECTOR GLUCOSE - POINT OF CARE Routine 05/17/20 6:02 PM SENIOR RESIDENT CARE DIRECTOR PROTEIN CREATININE RATIO URINE RANDOM PNL Routine 05/17/2024 1:14 PM SENIOR RESIDENT CARE DIRECTOR VAS ARTERIAL ANKLE ARM INDEX Routine 05/17/2024 12:04 PM SENIOR RESIDENT CARE DIRECTOR Ulcer of left foot with other severity (HCC) GLUCOSE - POINT OF CARE Routine 05/17/20 11:57 AM SENIOR RESIDENT CARE DIRECTOR CBC W/O DIFFERENTIAL STAT 05/17/2024 9:46 AM SENIOR RESIDENT CARE DIRECTOR GLUCOSE - POINT OF CARE Routine 05/17/20 7:57 AM SENIOR RESIDENT CARE DIRECTOR COMPLEMENT C4 Routine 05/17/2024 5:00 AM SENIOR RESIDENT CARE DIRECTOR BASIC METABOLIC PANEL (CALCIUM TOTAL) AM Draw 05/17/2024 5:00 AM SENIOR RESIDENT CARE DIRECTOR COMPLEMENT C3 Routine 05/17/2024 5:00 AM SENIOR RESIDENT CARE DIRECTOR GLUCOSE - POINT OF CARE Routine 05/16/20 9:36 PM SENIOR RESIDENT CARE DIRECTOR GLUCOSE - POINT OF CARE Routine 05/16/20 6:18 PM SENIOR RESIDENT CARE DIRECTOR MRI FOOT LEFT WO CONTRAST Routine 05/16/2024 5:20 PM SENIOR RESIDENT CARE DIRECTOR Ulcer of left foot with other severity (HCC) URINALYSIS REFLEX TO MICROSCOPIC NO CULTURE Routine 05/16/2024 12:57 PM SENIOR RESIDENT CARE DIRECTOR GLUCOSE - POINT OF CARE Routine 05/16/20 11:07 AM SENIOR RESIDENT CARE DIRECTOR VANCOMYCIN LEVEL PEAK STAT 05/16/2024 9:04 AM SENIOR RESIDENT CARE DIRECTOR GLUCOSE - POINT OF CARE Routine 05/16/20 7:53 AM SENIOR RESIDENT CARE DIRECTOR DIFFERENTIAL MANUAL AM Draw 05/16/2024 3 :09 AM SENIOR RESIDENT CARE DIRECTOR CBC W AUTO DIFFERENTIAL AM Draw 05/16/20 3:09 AM SENIOR RESIDENT CARE DIRECTOR RENAL FUNCTION PANEL AM Draw 05/16/2024 3:09 AM SENIOR RESIDENT CARE DIRECTOR GLUCOSE - POINT OF CARE Routine 05/15/20 8:43 PM SENIOR RESIDENT CARE DIRECTOR GLUCOSE - POINT OF CARE Routine 05/15/20 6:01 PM SENIOR RESIDENT CARE DIRECTOR XR FOOT LEFT 2VW STAT 05/15/2024 5:31 PM SENIOR RESIDENT CARE DIRECTOR Left foot infection GLUCOSE - POINT OF CARE Routine 05/15/20 5:06 PM SENIOR RESIDENT CARE DIRECTOR CULTURE FUNGUS OTHER+FUNGUS SMEAR STAT 05/15/2024 4:34 PM SENIOR RESIDENT CARE DIRECTOR Left foot infection CULTURE TISSUE+GRAM STAIN STAT 05/15/2024 4:34 PM SENIOR RESIDENT CARE DIRECTOR Left foot infection CULTURE ANAEROBE STAT 05/15/2024 4:34 PM SENIOR RESIDENT CARE DIRECTOR Left foot infection CULTURE TISSUE+GRAM STAIN STAT 05/15/2024 4:33 PM SENIOR RESIDENT CARE DIRECTOR Left foot infection CULTURE AFB+SMEAR STAT 05/15/2024 4:3 3 PM SENIOR RESIDENT CARE DIRECTOR Left foot infection CULTURE ANAEROBE STAT 05/15/2024 4:33 PM SENIOR RESIDENT CARE DIRECTOR Left foot infection PATHOLOGY TISSUE EXAM (STL) Routine 05/15/2024 4:29 PM SENIOR RESIDENT CARE DIRECTOR Left foot infection CA SANTI SUBQ TISSUE 20 SQ CM/< 05/15/2024 3:18 PM SENIOR RESIDENT CARE DIRECTOR GLUCOSE - POINT OF CARE Routine 05/15/20 1:31 PM SENIOR RESIDENT CARE DIRECTOR GLUCOSE - POINT OF CARE Routine 05/15/20 7:50 AM SENIOR RESIDENT CARE DIRECTOR HEMOGLOBIN A1C Routine 05/15/2024 12:13 AM SENIOR RESIDENT CARE DIRECTOR DIFFERENTIAL MANUAL AM Draw 05/15/2024 1 2:13 AM SENIOR RESIDENT CARE DIRECTOR CBC W AUTO DIFFERENTIAL AM Draw 05/15/20 12:13 AM SENIOR RESIDENT CARE DIRECTOR RENAL FUNCTION PANEL AM Draw 05/15/2024 12:13 AM SENIOR RESIDENT CARE DIRECTOR VANCOMYCIN LEVEL TROUGH STAT 05/15/20 12:13 AM SENIOR RESIDENT CARE DIRECTOR GLUCOSE - POINT OF CARE Routine 05/14/20 10:02 PM SENIOR RESIDENT CARE DIRECTOR SODIUM URINE RANDOM Routine 05/14/2024 5 :31 PM SENIOR RESIDENT CARE DIRECTOR PROTEIN CREATININE RATIO URINE RANDOM PNL Routine 05/14/2024 5:31 PM SENIOR RESIDENT CARE DIRECTOR VANCOMYCIN LEVEL PEAK STAT 05/14/2024 5:06 PM SENIOR RESIDENT CARE DIRECTOR GLUCOSE - POINT OF CARE Routine 05/14/20 4:50 PM SENIOR RESIDENT CARE DIRECTOR US RETROPERITONEAL COMPLETE Routine 05/14/2024 2:17 PM SENIOR RESIDENT CARE DIRECTOR CHRISTIE (acute kidney injury) (HCC) EOSINOPHIL URINE SMEAR Routine 1:19 PM SENIOR RESIDENT CARE DIRECTOR CULTURE WOUND+GRAM STAIN Routine 05/14/2024 12:22 PM SENIOR RESIDENT CARE DIRECTOR GLUCOSE - POINT OF CARE Routine 05/14/20 11:33 AM SENIOR RESIDENT CARE DIRECTOR CULTURE BLOOD STAT 05/14/2024 9:25 AM SENIOR RESIDENT CARE DIRECTOR CULTURE BLOOD STAT 05/14/2024 9:16 AM SENIOR RESIDENT CARE DIRECTOR B-TYPE NATRIURETIC PEPTIDE STAT 05/14/2024 9:16 AM SENIOR RESIDENT CARE DIRECTOR LACTIC ACID BLOOD STAT 05/14/2024 9:1 6 AM SENIOR RESIDENT CARE DIRECTOR FOLATE STAT 05/14/2024 9:16 AM SENIOR RESIDENT CARE DIRECTOR VITAMIN B12 STAT 05/14/2024 9:16 AM SENIOR RESIDENT CARE DIRECTOR GLUCOSE - POINT OF CARE Routine 05/14/20 8:16 AM SENIOR RESIDENT CARE DIRECTOR RETIC COUNT STAT 05/14/2024 4:03 AM SENIOR RESIDENT CARE DIRECTOR DIFFERENTIAL MANUAL AM Draw 05/14/2024 4 :03 AM SENIOR RESIDENT CARE DIRECTOR CBC W AUTO DIFFERENTIAL AM Draw 05/14/20 4:03 AM SENIOR RESIDENT CARE DIRECTOR RENAL FUNCTION PANEL AM Draw 05/14/2024 4:03 AM SENIOR RESIDENT CARE DIRECTOR CK BLOOD STAT 05/14/2024 4:03 AM SENIOR RESIDENT CARE DIRECTOR VANCOMYCIN LEVEL RANDOM STAT 05/14/20 4:03 AM SENIOR RESIDENT CARE DIRECTOR IRON + TRANSFERRIN PANEL STAT 05/14/2024 4:03 AM SENIOR RESIDENT CARE DIRECTOR FERRITIN STAT 05/14/2024 4:03 AM SENIOR RESIDENT CARE DIRECTOR GLUCOSE - POINT OF CARE Routine 05/13/20 11:10 PM SENIOR RESIDENT CARE DIRECTOR CBC W AUTO DIFFERENTIAL Routine 05/13/20 6:30 PM SENIOR RESIDENT CARE DIRECTOR BASIC METABOLIC PANEL (CALCIUM TOTAL) STAT 05/13/2024 6:30 PM SENIOR RESIDENT CARE DIRECTOR documented in this encounter Results * CARDIAC RHYTHM STRIP ORDER (05/27/2024 5:02 PM SENIOR RESIDENT CARE DIRECTOR) Narrative 05/27/2024 5:02 PM SENIOR RESIDENT CARE DIRECTOR Ordered by an unspecified provider. Scanned Document CARDIAC SERVICES ORD ERABLES * (ABNORMAL) GLUCOSE - POINT OF CARE (05/26/2024 11:48 AM SENIOR RESIDENT CARE DIRECTOR) Glucose WB/POC 127(H) 70 - 99 mg/dL 06/06/2024 7:01 AM SENIOR RESIDENT CARE DIRECTOR [facility] Specimen Type Cap Fingerstick 2023 7:01 AM SENIOR RESIDENT CARE DIRECTOR [facility] Blood BLOOD SPECIMEN / Unknown 05/26/2024 11:48 AM SENIOR RESIDENT CARE DIRECTOR 06/06/2024 7:01 AM SENIOR RESIDENT CARE DIRECTOR Tereza Mcpherson MD LAB - POINT OF CARE ORDERABLES Performing Organization Address [facility]/State/ZIP Co de Phone Number [facility] [address] [place] [address] * (ABNORMAL) GLUCOSE - POINT OF CARE (05/26/2024 8:04 AM SENIOR RESIDENT CARE DIRECTOR) Glucose WB/POC 116(H) 70 - 99 mg/dL 06/06/2024 7:01 AM SENIOR RESIDENT CARE DIRECTOR [facility] Specimen Type Cap Fingerstick 2023 7:01 AM SENIOR RESIDENT CARE DIRECTOR [facility] Blood BLOOD SPECIMEN / Unknown 05/26/2024 8:04 AM SENIOR RESIDENT CARE DIRECTOR 06/06/2024 7:01 AM SENIOR RESIDENT CARE DIRECTOR Tereza Mcpherson MD LAB - POINT OF CARE ORDERABLES Performing Organization Address [facility] Co de Phone Number [facility] [address] [place] [phone] * (ABNORMAL) GLUCOSE - POINT OF CARE (05/25/2024 8:59 PM SENIOR RESIDENT CARE DIRECTOR) Glucose WB/POC 162(H) 70 - 99 mg/dL 06/06/2024 7:01 AM SENIOR RESIDENT CARE DIRECTOR [facility] Specimen Type Cap Fingerstick 2023 7:01 AM SENIOR RESIDENT CARE DIRECTOR [facility] Blood BLOOD SPECIMEN / Unknown 05/25/2024 8:59 PM SENIOR RESIDENT CARE DIRECTOR 06/06/2024 7:01 AM SENIOR RESIDENT CARE DIRECTOR Tereza Mcpherson MD LAB - POINT OF CARE ORDERABLES Performing Organization Address [facility] de Phone Number [facility] [address] [place] [address] [phone] * (ABNORMAL) GLUCOSE - POINT OF CARE (05/25/2024 4:36 PM SENIOR RESIDENT CARE DIRECTOR) Glucose WB/POC 167(H) 70 - 99 mg/dL 06/06/2024 7:01 AM SENIOR RESIDENT CARE DIRECTOR [facility] Specimen Type Cap Fingerstick 2023 7:01 AM SENIOR RESIDENT CARE DIRECTOR [facility] Blood BLOOD SPECIMEN / Unknown 05/25/2024 4:36 PM SENIOR RESIDENT CARE DIRECTOR 06/06/2024 7:01 AM SENIOR RESIDENT CARE DIRECTOR Tereza Mcpherson MD LAB - POINT OF CARE ORDERABLES Performing Organization Address [facility] Co de Phone Number [facility] [address] [place] [phone] * (ABNORMAL) GLUCOSE - POINT OF CARE (05/25/2024 11:36 AM SENIOR RESIDENT CARE DIRECTOR) Glucose WB/POC 146(H) 70 - 99 mg/dL 05/25/2024 12:00 PM SENIOR RESIDENT CARE DIRECTOR [facility] Specimen Type Cap Fingerstick 2023 12:00 PM SENIOR RESIDENT CARE DIRECTOR [facility] Blood BLOOD SPECIMEN / Unknown 05/25/2024 11:36 AM SENIOR RESIDENT CARE DIRECTOR 05/25/2024 12:00 PM SENIOR RESIDENT CARE DIRECTOR Tereza Mcpherson MD LAB - POINT OF CARE ORDERABLES Performing Organization Address [facility] Co de Phone Number [facility] [address] [place] [address] [phone] * (ABNORMAL) GLUCOSE - POINT OF CARE (05/25/2024 8:12 AM SENIOR RESIDENT CARE DIRECTOR) Glucose WB/POC 119(H) 70 - 99 mg/dL 05/25/2024 12:00 PM SENIOR RESIDENT CARE DIRECTOR [facility] Specimen Type Cap Fingerstick 2023 12:00 PM SENIOR RESIDENT CARE DIRECTOR [facility] Blood BLOOD SPECIMEN / Unknown 05/25/2024 8:12 AM SENIOR RESIDENT CARE DIRECTOR 05/25/2024 12:00 PM SENIOR RESIDENT CARE DIRECTOR Tereza Mcpherson MD LAB - POINT OF CARE ORDERABLES Performing Organization Address [facility] de Phone Number [facility] [address] [place] [phone] * (ABNORMAL) GLUCOSE - POINT OF CARE (05/24/2024 7:43 PM SENIOR RESIDENT CARE DIRECTOR) Glucose WB/POC 167(H) 70 - 99 mg/dL 05/24/2024 7:53 PM SENIOR RESIDENT CARE DIRECTOR [facility] Specimen Type Arterial 05/24/2024 7:53 PM SENIOR RESIDENT CARE DIRECTOR [facility] Blood BLOOD SPECIMEN / Unknown 05/24/2024 7:43 PM SENIOR RESIDENT CARE DIRECTOR 05/24/2024 7:52 PM SENIOR RESIDENT CARE DIRECTOR Tereza Mcpherson MD LAB - POINT OF CARE ORDERABLES Performing Organization Address [facility] Co de Phone Number [facility] [address] [place] [phone] * (ABNORMAL) GLUCOSE - POINT OF CARE (05/24/2024 5:12 PM SENIOR RESIDENT CARE DIRECTOR) Glucose WB/POC 174(H) 70 - 99 mg/dL 05/24/2024 7:30 PM SENIOR RESIDENT CARE DIRECTOR [facility] Specimen Type Cap Fingerstick 2023 7:30 PM SENIOR RESIDENT CARE DIRECTOR [facility] Blood BLOOD SPECIMEN / Unknown 05/24/2024 5:12 PM SENIOR RESIDENT CARE DIRECTOR 05/24/2024 7:30 PM SENIOR RESIDENT CARE DIRECTOR Tereza Mcpherson MD LAB - POINT OF CARE ORDERABLES Performing Organization Address [facility] Co de Phone Number [facility] [address] [place] [phone] * (ABNORMAL) GLUCOSE - POINT OF CARE (05/24/2024 12:30 PM SENIOR RESIDENT CARE DIRECTOR) Glucose WB/POC 167(H) 70 - 99 mg/dL 05/24/2024 7:30 PM SENIOR RESIDENT CARE DIRECTOR [facility] Specimen Type Cap Fingerstick 2023 7:30 PM SENIOR RESIDENT CARE DIRECTOR [facility] Blood BLOOD SPECIMEN / Unknown 05/24/2024 12:30 PM SENIOR RESIDENT CARE DIRECTOR 05/24/2024 7:30 PM SENIOR RESIDENT CARE DIRECTOR Tereza Mcpherson MD LAB - POINT OF CARE ORDERABLES Performing Organization Address [facility] Co de Phone Number [facility] [address] [place] [phone] * (ABNORMAL) GLUCOSE - POINT OF CARE (05/24/2024 7:40 AM SENIOR RESIDENT CARE DIRECTOR) Glucose WB/POC 132(H) 70 - 99 mg/dL 05/24/2024 7:50 AM SENIOR RESIDENT CARE DIRECTOR [facility] Specimen Type Cap Fingerstick 2023 7:50 AM SENIOR RESIDENT CARE DIRECTOR [facility] Blood BLOOD SPECIMEN / Unknown 05/24/2024 7:40 AM SENIOR RESIDENT CARE DIRECTOR 05/24/2024 7:49 AM SENIOR RESIDENT CARE DIRECTOR Tereza Mcpherson MD LAB - POINT OF CARE ORDERABLES Performing Organization Address [facility] Co de Phone Number [facility] [address] [place] [address] [phone] * (ABNORMAL) RENAL FUNCTION PANEL (05/24/2024 5:08 AM SENIOR RESIDENT CARE DIRECTOR) Glucose 123(H) 70 - 99 mg/dL 05/24/2024 5:56 AM SENIOR RESIDENT CARE DIRECTOR [facility] Sodium 140 136 - 145 mmol/L 05/24/2024 5:56 AM [facility] Potassium 4.3 3.5 - 5.1 mmol/L 05/24/2024 5:56 AM [facility] Chloride 111(H) 98 - 107 mmol/L 05/24/2024 5:56 AM [facility] CO2 23 22 - 29 mmol/L 05/24/2024 5:56 AM [facility] Calcium 8.9 8.4 - 10.4 mg/dL 05/24/2024 5:56 AM [facility] Anion Gap 6 6 - 16 mmol/L 05/24/2024 5:56 AM [facility] BUN 26(H) 5.3 - 18.7 mg/dL 05/24/2024 5:56 AM [facility] Creatinine 1.33(H) 0.72 - 1.25 mg/dL 05/24/2024 5:56 AM [facility] Albumin 2.0(L) 3.4 - 5.0 gm/dL 05/24/2024 5:56 AM [facility] Phosphorus 4.2 2.5 - 4.5 mg/dL 05/24/2024 5:56 AM [facility] eGFR by CKD-EPI 68(L) >=90 mL/min/1.7 3 m2 05/24/2024 5:56 AM [facility] Blood BLOOD SPECIMEN / Unknown Lab Venipuncture / Unknown 05/24/2024 5:08 AM SENIOR RESIDENT CARE DIRECTOR 05/24/2024 5:22 AM [facility] Manpreet Stuart MD LAB - CHEMISTRY MELIDA COLLINS [facility] Organization Address City/State/ZIP Co de Phone Number [facility] [address] [place], [place] [phone] * (ABNORMAL) GLUCOSE - POINT OF CARE (05/23/2024 7:43 PM SENIOR RESIDENT CARE DIRECTOR) Glucose WB/POC 170(H) 70 - 99 mg/dL 05/23/2024 7:52 PM [facility] Specimen Type Arterial 05/23/2024 7:52 PM [facility] Blood BLOOD SPECIMEN / Unknown 05/23/2024 7:43 PM SENIOR RESIDENT CARE DIRECTOR 05/23/2024 7:52 PM SENIOR RESIDENT CARE DIRECTOR Manpreet Stuart MD LAB - POINT OF CARE ORDERABLES Performing Organization Address [facility] Co de Phone Number [facility] [address] [place] [phone] * (ABNORMAL) GLUCOSE - POINT OF CARE (05/23/2024 5:17 PM SENIOR RESIDENT CARE DIRECTOR) Glucose WB/POC 176(H) 70 - 99 mg/dL 05/23/2024 7:52 PM SENIOR RESIDENT CARE DIRECTOR [facility] Specimen Type Cap Fingerstick 2023 7:52 PM SENIOR RESIDENT CARE DIRECTOR [facility] Blood BLOOD SPECIMEN / Unknown 05/23/2024 5:17 PM SENIOR RESIDENT CARE DIRECTOR 05/23/2024 7:52 PM SENIOR RESIDENT CARE DIRECTOR Manpreet Stuart MD LAB - POINT OF CARE ORDERABLES Performing Organization Address [facility] Co de Phone Number [facility] [address] [place] [phone] * (ABNORMAL) GLUCOSE - POINT OF CARE (05/23/2024 11:46 AM SENIOR RESIDENT CARE DIRECTOR) Glucose WB/POC 176(H) 70 - 99 mg/dL 05/24/2024 7:17 AM SENIOR RESIDENT CARE DIRECTOR [facility] Specimen Type Cap Fingerstick 2023 7:17 AM SENIOR RESIDENT CARE DIRECTOR [facility] Blood BLOOD SPECIMEN / Unknown 05/23/2024 11:46 AM SENIOR RESIDENT CARE DIRECTOR 05/24/2024 7:17 AM SENIOR RESIDENT CARE DIRECTOR Manpreet Stuart MD LAB - POINT OF CARE ORDERABLES Performing Organization Address [facility] Co de Phone Number [facility] [address] [place] [phone] * (ABNORMAL) GLUCOSE - POINT OF CARE (05/23/2024 7:38 AM SENIOR RESIDENT CARE DIRECTOR) Glucose WB/POC 156(H) 70 - 99 mg/dL 05/24/2024 12:30 AM SENIOR RESIDENT CARE DIRECTOR [facility] Specimen Type Cap Fingerstick 2023 12:30 AM [facility] Blood BLOOD SPECIMEN / Unknown 05/23/2024 7:38 AM SENIOR RESIDENT CARE DIRECTOR 05/24/2024 12:30 AM SENIOR RESIDENT CARE DIRECTOR Manpreet Stuart MD LAB - POINT OF CARE ORDERABLES Performing Organization Address City/State/[facility] Co de Phone Number [facility] [address] [place] [address] * (ABNORMAL) RENAL FUNCTION PANEL (05/23/2024 3:33 AM SENIOR RESIDENT CARE DIRECTOR) Glucose 174(H) 70 - 99 mg/dL 05/23/2024 4:24 AM [facility] Sodium 136 136 - 145 mmol/L 05/23/2024 4:24 AM [facility] Potassium 5.3(H) 3.5 - 5.1 mmol/L 05/23/2024 4:24 AM [facility] Chloride 109(H) 98 - 107 mmol/L 05/23/2024 4:24 AM [facility] CO2 22 22 - 29 mmol/L 05/23/2024 4:24 AM [facility] Calcium 8.8 8.4 - 10.4 mg/dL 05/23/2024 4:24 AM [facility] Anion Gap 5(L) 6 - 16 mmol/L 05/23/2024 4:24 AM [facility] BUN 28(H) 5.3 - 18.7 mg/dL 05/23/2024 4:24 AM [facility] Creatinine 1.47(H) 0.72 - 1.25 mg/dL 05/23/2024 4:24 AM [facility] Albumin 1.9(L) 3.4 - 5.0 gm/dL 05/23/2024 4:24 AM [facility] Phosphorus 3.7 2.5 - 4.5 mg/dL 05/23/2024 4:24 AM [facility] eGFR by CKD-EPI 60(L) >=90 mL/min/1.7 3 m2 05/23/2024 4:24 AM [facility] Blood BLOOD SPECIMEN / Unknown Lab Venipuncture / Unknown 05/23/2024 3:33 AM SENIOR RESIDENT CARE DIRECTOR 05/23/2024 3:45 AM SENIOR RESIDENT CARE DIRECTOR Manpreet Stuart MD LAB - CHEMISTRY MELIDA COLLINS Performing Organization Address [facility]/ZIP Co de Phone Number [facility] [address] [place] [phone] * (ABNORMAL) GLUCOSE - POINT OF CARE (05/22/2024 9:22 PM SENIOR RESIDENT CARE DIRECTOR) Glucose WB/POC 233(H) 70 - 99 mg/dL 05/23/2024 7:16 AM SENIOR RESIDENT CARE DIRECTOR [facility] Specimen Type Cap Fingerstick 2023 7:16 AM SENIOR RESIDENT CARE DIRECTOR [facility] Blood BLOOD SPECIMEN / Unknown 05/22/2024 9:22 PM SENIOR RESIDENT CARE DIRECTOR 05/23/2024 7:16 AM SENIOR RESIDENT CARE DIRECTOR Manpreet Stuart MD LAB - POINT OF CARE ORDERABLES Performing Organization Address [facility] Co de Phone Number [facility] [address] [place] [phone] * (ABNORMAL) GLUCOSE - POINT OF CARE (05/22/2024 5:29 PM SENIOR RESIDENT CARE DIRECTOR) Glucose WB/POC 171(H) 70 - 99 mg/dL 05/22/2024 5:39 PM SENIOR RESIDENT CARE DIRECTOR [facility] Specimen Type Cap Fingerstick 2023 5:39 PM SENIOR RESIDENT CARE DIRECTOR [facility] Blood BLOOD SPECIMEN / Unknown 05/22/2024 5:29 PM SENIOR RESIDENT CARE DIRECTOR 05/22/2024 5:39 PM SENIOR RESIDENT CARE DIRECTOR Manpreet Stuart MD LAB - POINT OF CARE ORDERABLES Performing Organization Address [facility]/ZIP Co de Phone Number [facility] [address] [place] [phone] * (ABNORMAL) GLUCOSE - POINT OF CARE (05/22/2024 12:15 PM SENIOR RESIDENT CARE DIRECTOR) Glucose WB/POC 149(H) 70 - 99 mg/dL 05/22/2024 12:34 PM SENIOR RESIDENT CARE DIRECTOR [facility] Specimen Type Cap Fingerstick 2023 12:34 PM SENIOR RESIDENT CARE DIRECTOR [facility] Blood BLOOD SPECIMEN / Unknown 05/22/2024 12:15 PM SENIOR RESIDENT CARE DIRECTOR 05/22/2024 12:34 PM SENIOR RESIDENT CARE DIRECTOR Manpreet Stuart MD LAB - POINT OF CARE ORDERABLES Performing Organization Address City/[facility]/ZIP Co de Phone Number [facility] [address] [place] [phone] * (ABNORMAL) GLUCOSE - POINT OF CARE (05/22/2024 7:20 AM SENIOR RESIDENT CARE DIRECTOR) Glucose WB/POC 141(H) 70 - 99 mg/dL 05/22/2024 12:34 PM SENIOR RESIDENT CARE DIRECTOR [facility] Specimen Type Cap Fingerstick 2023 12:34 PM [facility] Blood BLOOD SPECIMEN / Unknown 05/22/2024 7:20 AM SENIOR RESIDENT CARE DIRECTOR 05/22/2024 12:34 PM SENIOR RESIDENT CARE DIRECTOR Manpreet Stuart MD LAB - POINT OF CARE ORDERABLES Performing Organization Address City/[facility] Co de Phone Number [facility] [address] [place] [phone] * (ABNORMAL) RENAL FUNCTION PANEL (05/22/2024 3:09 AM SENIOR RESIDENT CARE DIRECTOR) Glucose 153(H) 70 - 99 mg/dL 05/22/2024 5:14 AM [facility] Sodium 136 136 - 145 mmol/L 05/22/2024 5:14 AM [facility] Potassium 4.7 3.5 - 5.1 mmol/L 05/22/2024 5:14 AM [facility] Chloride 108(H) 98 - 107 mmol/L 05/22/2024 5:14 AM [facility] CO2 23 22 - 29 mmol/L 05/22/2024 5:14 AM [facility] Calcium 8.6 8.4 - 10.4 mg/dL 05/22/2024 5:14 AM [facility] Anion Gap 5(L) 6 - 16 mmol/L 05/22/2024 5:14 AM [facility] BUN 28(H) 5.3 - 18.7 mg/dL 05/22/2024 5:14 AM [facility] Creatinine 1.38(H) 0.72 - 1.25 mg/dL 05/22/2024 5:14 AM [facility] Albumin 1.8(L) 3.4 - 5.0 gm/dL 05/22/2024 5:14 AM [facility] Phosphorus 4.0 2.5 - 4.5 mg/dL 05/22/2024 5:14 AM [facility] eGFR by CKD-EPI 65(L) >=90 mL/min/1.7 3 m2 05/22/2024 5:14 AM SENIOR RESIDENT CARE DIRECTOR [facility] Blood BLOOD SPECIMEN / Unknown Lab Venipuncture / Unknown 05/22/2024 3:09 AM SENIOR RESIDENT CARE DIRECTOR 05/22/2024 4:36 AM SENIOR RESIDENT CARE DIRECTOR Manpreet Stuart MD LAB - CHEMISTRY ORDE DENNIS Performing Organization Address City/[facility]/ZIP Co de Phone Number [facility] [address] [place] [address] [phone] * (ABNORMAL) GLUCOSE - POINT OF CARE (05/21/2024 8:39 PM SENIOR RESIDENT CARE DIRECTOR) Glucose WB/POC 178(H) 70 - 99 mg/dL 05/21/2024 11:11 PM SENIOR RESIDENT CARE DIRECTOR [facility] Specimen Type Cap Fingerstick 2023 11:11 PM SENIOR RESIDENT CARE DIRECTOR [facility] Blood BLOOD SPECIMEN / Unknown 05/21/2024 8:39 PM SENIOR RESIDENT CARE DIRECTOR 05/21/2024 11:11 PM SENIOR RESIDENT CARE DIRECTOR Manpreet Stuart MD LAB - POINT OF CARE ORDERABLES [facility] [address] [place] [address] [phone] * (ABNORMAL) GLUCOSE - POINT OF CARE (05/21/2024 5:12 PM SENIOR RESIDENT CARE DIRECTOR) Glucose WB/POC 178(H) 70 - 99 mg/dL 05/21/2024 5:55 PM SENIOR RESIDENT CARE DIRECTOR [facility] Specimen Type Cap Fingerstick 2023 5:55 PM SENIOR RESIDENT CARE DIRECTOR [facility] Blood BLOOD SPECIMEN / Unknown 05/21/2024 5:12 PM SENIOR RESIDENT CARE DIRECTOR 05/21/2024 5:55 PM SENIOR RESIDENT CARE DIRECTOR Manpreet Stuart MD LAB - POINT OF CARE ORDERABLES Performing Organization Address [facility]/ZIP Co de Phone Number [facility] [address] [place] [phone] * (ABNORMAL) GLUCOSE - POINT OF CARE (05/21/2024 11:59 AM SENIOR RESIDENT CARE DIRECTOR) Glucose WB/POC 149(H) 70 - 99 mg/dL 05/21/2024 12:48 PM SENIOR RESIDENT CARE DIRECTOR [facility] Specimen Type Cap Fingerstick 2023 12:48 PM SENIOR RESIDENT CARE DIRECTOR [facility] Blood BLOOD SPECIMEN / Unknown 05/21/2024 11:59 AM SENIOR RESIDENT CARE DIRECTOR 05/21/2024 12:48 PM SENIOR RESIDENT CARE DIRECTOR Manpreet Stuart MD LAB - POINT OF CARE ORDERABLES Performing Organization Address [facility] Co de Phone Number [facility] [address] [place] [phone] * (ABNORMAL) GLUCOSE - POINT OF CARE (05/21/2024 7:47 AM SENIOR RESIDENT CARE DIRECTOR) Glucose WB/POC 182(H) 70 - 99 mg/dL 05/21/2024 8:00 AM SENIOR RESIDENT CARE DIRECTOR [facility] Specimen Type Cap Fingerstick 2023 8:00 AM SENIOR RESIDENT CARE DIRECTOR [facility] Blood BLOOD SPECIMEN / Unknown 05/21/2024 7:47 AM SENIOR RESIDENT CARE DIRECTOR 05/21/2024 8:00 AM SENIOR RESIDENT CARE DIRECTOR Manpreet Stuart MD LAB - POINT OF CARE ORDERABLES Performing Organization Address [facility] Co de Phone Number [facility] [address] [place] [phone] * (ABNORMAL) RENAL FUNCTION PANEL (05/21/2024 3:03 AM SENIOR RESIDENT CARE DIRECTOR) Glucose 179(H) 70 - 99 mg/dL 05/21/2024 4:31 AM [facility] Sodium 138 136 - 145 mmol/L 05/21/2024 4:31 AM [facility] Potassium 5.2(H) 3.5 - 5.1 mmol/L 05/21/2024 4:31 AM [facility] Chloride 110(H) 98 - 107 mmol/L 05/21/2024 4:31 AM [facility] CO2 24 22 - 29 mmol/L 05/21/2024 4:31 AM [facility] Calcium 8.8 8.4 - 10.4 mg/dL 05/21/2024 4:31 AM [facility] Anion Gap 4(L) 6 - 16 mmol/L 05/21/2024 4:31 AM [facility] BUN 29(H) 5.3 - 18.7 mg/dL 05/21/2024 4:31 AM [facility] Creatinine 1.48(H) 0.72 - 1.25 mg/dL 05/21/2024 4:31 AM [facility] Albumin 1.7(L) 3.4 - 5.0 gm/dL 05/21/2024 4:31 AM [facility] Phosphorus 4.2 2.5 - 4.5 mg/dL 05/21/2024 4:31 AM [facility] eGFR by CKD-EPI 59(L) >=90 mL/min/1.7 3 m2 05/21/2024 4:31 AM [facility] Blood BLOOD SPECIMEN / Unknown Lab Venipuncture / Unknown 05/21/2024 3:03 AM SENIOR RESIDENT CARE DIRECTOR 05/21/2024 3:14 AM [facility] Manpreet Stuart MD LAB - CHEMISTRY MELIDA COLLINS [facility] Organization Address City/State/ZIP Co de Phone Number [facility] [address] [place] [address] * (ABNORMAL) GLUCOSE - POINT OF CARE (05/20/2024 7:40 PM SENIOR RESIDENT CARE DIRECTOR) Glucose WB/POC 184(H) 70 - 99 mg/dL 05/20/2024 8:57 PM [facility] Specimen Type Arterial 05/20/2024 8:57 PM SENIOR RESIDENT CARE DIRECTOR [facility] Blood BLOOD SPECIMEN / Unknown 05/20/2024 7:40 PM SENIOR RESIDENT CARE DIRECTOR 05/20/2024 8:57 PM SENIOR RESIDENT CARE DIRECTOR Manpreet Stuart MD LAB - POINT OF CARE ORDERABLES Performing Organization Address [facility]/ZIP Co de Phone Number [facility] [address] [place] [phone] * (ABNORMAL) GLUCOSE - POINT OF CARE (05/20/2024 5:59 PM SENIOR RESIDENT CARE DIRECTOR) Glucose WB/POC 167(H) 70 - 99 mg/dL 05/20/2024 6:08 PM SENIOR RESIDENT CARE DIRECTOR [facility] Specimen Type Cap Fingerstick 2023 6:08 PM SENIOR RESIDENT CARE DIRECTOR [facility] Blood BLOOD SPECIMEN / Unknown 05/20/2024 5:59 PM SENIOR RESIDENT CARE DIRECTOR 05/20/2024 6:08 PM SENIOR RESIDENT CARE DIRECTOR Manpreet Stuart MD LAB - POINT OF CARE ORDERABLES Performing Organization Address [facility] Co de Phone Number [facility] [address] [place] [phone] * (ABNORMAL) GLUCOSE - POINT OF CARE (05/20/2024 4:42 PM SENIOR RESIDENT CARE DIRECTOR) Glucose WB/POC 180(H) 70 - 99 mg/dL 05/20/2024 4:48 PM SENIOR RESIDENT CARE DIRECTOR [facility] Specimen Type Cap Fingerstick 2023 4:48 PM SENIOR RESIDENT CARE DIRECTOR [facility] Blood BLOOD SPECIMEN / Unknown 05/20/2024 4:42 PM SENIOR RESIDENT CARE DIRECTOR 05/20/2024 4:48 PM SENIOR RESIDENT CARE DIRECTOR Manpreet Stuart MD LAB - POINT OF CARE ORDERABLES Performing Organization Address [facility] Co de Phone Number [facility] [address] [place] [phone] * CULTURE WOUND+GRAM STAIN (05/20/2024 2:58 PM SENIOR RESIDENT CARE DIRECTOR) Culture Rare normal skin jero JEFF 05/22/2024 9:21 PM SENIOR RESIDENT CARE DIRECTOR [facility] Gram Stain Moderate Polymorphonuclear cells 05/22/2024 9:21 PM SENIOR RESIDENT CARE DIRECTOR [facility] Gram Stain No organisms seen 024 9:21 PM SENIOR RESIDENT CARE DIRECTOR [facility] Microbiology ENTIRE FOOT / Unknown 05/20/2024 2:58 PM SENIOR RESIDENT CARE DIRECTOR 05/20/2024 3:58 PM SENIOR RESIDENT CARE DIRECTOR Comment:Pre-op diagnosis: Diagnosis unknown [R69] Narrative [facility]CRO[facility]Y - 05/22/2024 9:21 PM SENIOR RESIDENT CARE DIRECTOR Surgical Description: Left Foot Wound Culture Abby Quinn [facility] - MICROBIOLOGY O RDERABLES [facility] MICROBIOLOGY [address] [place] [address], [facility] [phone] * CULTURE ANAEROBE (05/20/2024 2:58 PM SENIOR RESIDENT CARE DIRECTOR) Culture No anaerobic organisms isolated JEFF 05/25/2024 3:37 PM SENIOR RESIDENT CARE DIRECTOR [facility] MICROBIOLOGY Microbiology ENTIRE FOOT / Unknown 05/20/2024 2:58 PM SENIOR RESIDENT CARE DIRECTOR 05/20/2024 3:58 PM SENIOR RESIDENT CARE DIRECTOR Comment:Pre-op diagnosis: Diagnosis unknown [R69] Narrative [facility]CRO[facility]Y - 05/25/2024 3:37 PM SENIOR RESIDENT CARE DIRECTOR Surgical Description: Left Foot Wound Culture Abby Quinn [facility] - MICROBIOLOGY O RDERABLES [facility] MICROBIOLOGY [address] [place] [address], [facility] [phone] * (ABNORMAL) GLUCOSE - POINT OF CARE (05/20/2024 8:56 AM SENIOR RESIDENT CARE DIRECTOR) Glucose WB/POC 181(H) 70 - 99 mg/dL 05/20/2024 9:05 AM SENIOR RESIDENT CARE DIRECTOR [facility] Specimen Type Cap Fingerstick 2023 9:05 AM SENIOR RESIDENT CARE DIRECTOR [facility] Blood BLOOD SPECIMEN / Unknown 05/20/2024 8:56 AM SENIOR RESIDENT CARE DIRECTOR 05/20/2024 9:05 AM SENIOR RESIDENT CARE DIRECTOR Manpreet Stuart MD LAB - POINT OF CARE ORDERABLES Performing Organization Address City/[facility]/ZIP Co de Phone Number [facility] [address] [place] [address] * (ABNORMAL) RENAL FUNCTION PANEL (05/20/2024 3:09 AM [facility]) Glucose 167(H) 70 - 99 mg/dL 05/20/2024 4:11 AM [facility] Sodium 136 136 - 145 mmol/L 05/20/2024 4:11 AM [facility] Potassium 4.8 3.5 - 5.1 mmol/L 05/20/2024 4:11 AM [facility] Chloride 109(H) 98 - 107 mmol/L 05/20/2024 4:11 AM [facility] CO2 23 22 - 29 mmol/L 05/20/2024 4:11 AM [facility] Calcium 8.6 8.4 - 10.4 mg/dL 05/20/2024 4:11 AM [facility] Anion Gap 4(L) 6 - 16 mmol/L 05/20/2024 4:11 AM [facility] BUN 33(H) 5.3 - 18.7 mg/dL 05/20/2024 4:11 AM [facility] Creatinine 1.44(H) 0.72 - 1.25 mg/dL 05/20/2024 4:11 AM [facility] Albumin 1.7(L) 3.4 - 5.0 gm/dL 05/20/2024 4:11 AM [facility] Phosphorus 3.3 2.5 - 4.5 mg/dL 05/20/2024 4:11 AM [facility] eGFR by CKD-EPI 61(L) >=90 mL/min/1.7 3 m2 05/20/2024 4:11 AM [facility] Blood BLOOD SPECIMEN / Unknown Lab Venipuncture / Unknown 05/20/2024 3:09 AM SENIOR RESIDENT CARE DIRECTOR 05/20/2024 3:49 AM [facility] Manpreet Stuart MD LAB - CHEMISTRY ORDE RABLES Performing Organization Address City/[facility]/ZIP Co de Phone Number [facility] [address] [place] [address] * (ABNORMAL) GLUCOSE - POINT OF CARE (05/19/2024 10:16 PM SENIOR RESIDENT CARE DIRECTOR) Glucose WB/POC 172(H) 70 - 99 mg/dL 05/20/2024 12:23 AM SENIOR RESIDENT CARE DIRECTOR [facility] Specimen Type Cap Fingerstick 2023 12:23 AM SENIOR RESIDENT CARE DIRECTOR [facility] Blood BLOOD SPECIMEN / Unknown 05/19/2024 10:16 PM SENIOR RESIDENT CARE DIRECTOR 05/20/2024 12:23 AM SENIOR RESIDENT CARE DIRECTOR Manpreet Stuart MD LAB - POINT OF CARE ORDERABLES Performing Organization Address City/[facility]/ZIP Co de Phone Number [facility] [address] [place] [phone] * (ABNORMAL) GLUCOSE - POINT OF CARE (05/19/2024 8:17 PM SENIOR RESIDENT CARE DIRECTOR) Glucose WB/POC 186(H) 70 - 99 mg/dL 05/19/2024 8:27 PM SENIOR RESIDENT CARE DIRECTOR [facility] Specimen Type Cap Fingerstick 2023 8:27 PM SENIOR RESIDENT CARE DIRECTOR [facility] Blood BLOOD SPECIMEN / Unknown 05/19/2024 8:17 PM SENIOR RESIDENT CARE DIRECTOR 05/19/2024 8:27 PM SENIOR RESIDENT CARE DIRECTOR Manpreet Stuart MD LAB - POINT OF CARE ORDERABLES Performing Organization Address City/[facility]/ZIP Co de Phone Number [facility] [address] [place] [phone] * (ABNORMAL) GLUCOSE - POINT OF CARE (05/19/2024 5:11 PM SENIOR RESIDENT CARE DIRECTOR) Glucose WB/POC 173(H) 70 - 99 mg/dL 05/19/2024 8:21 PM SENIOR RESIDENT CARE DIRECTOR [facility] Specimen Type Cap Fingerstick 2023 8:21 PM SENIOR RESIDENT CARE DIRECTOR [facility] Blood BLOOD SPECIMEN / Unknown 05/19/2024 5:11 PM SENIOR RESIDENT CARE DIRECTOR 05/19/2024 8:20 PM SENIOR RESIDENT CARE DIRECTOR Manpreet Stuart MD LAB - POINT OF CARE ORDERABLES Performing Organization Address City/[facility] Co de Phone Number [facility] [address] [place] [phone] * (ABNORMAL) GLUCOSE - POINT OF CARE (05/19/2024 12:03 PM SENIOR RESIDENT CARE DIRECTOR) Glucose WB/POC 177(H) 70 - 99 mg/dL 05/19/2024 12:15 PM SENIOR RESIDENT CARE DIRECTOR [facility] Specimen Type Cap Fingerstick 2023 12:15 PM SENIOR RESIDENT CARE DIRECTOR [facility] Blood BLOOD SPECIMEN / Unknown 05/19/2024 12:03 PM SENIOR RESIDENT CARE DIRECTOR 05/19/2024 12:15 PM SENIOR RESIDENT CARE DIRECTOR Manpreet Stuart MD LAB - POINT OF CARE ORDERABLES Performing Organization Address [facility] Co de Phone Number [facility] [address] [place] [phone] * (ABNORMAL) GLUCOSE - POINT OF CARE (05/19/2024 7:29 AM SENIOR RESIDENT CARE DIRECTOR) Glucose WB/POC 172(H) 70 - 99 mg/dL 05/19/2024 7:47 AM SENIOR RESIDENT CARE DIRECTOR [facility] Specimen Type Cap Fingerstick 2023 7:47 AM SENIOR RESIDENT CARE DIRECTOR [facility] Blood BLOOD SPECIMEN / Unknown 05/19/2024 7:29 AM SENIOR RESIDENT CARE DIRECTOR 05/19/2024 7:46 AM SENIOR RESIDENT CARE DIRECTOR Manpreet Stuart MD LAB - POINT OF CARE ORDERABLES Performing Organization Address [facility] Co de Phone Number [facility] [address] [place] [phone] * (ABNORMAL) RENAL FUNCTION PANEL (05/19/2024 2:16 AM SENIOR RESIDENT CARE DIRECTOR) Glucose 190(H) 70 - 99 mg/dL 05/19/2024 3:31 AM SENIOR RESIDENT CARE DIRECTOR [facility] Sodium 136 136 - 145 mmol/L 05/19/2024 3:31 AM SENIOR RESIDENT CARE DIRECTOR [facility] Potassium 5.2(H) 3.5 - 5.1 mmol/L 05/19/2024 3:31 AM SENIOR RESIDENT CARE DIRECTOR [facility] Chloride 110(H) 98 - 107 mmol/L 05/19/2024 3:31 AM [facility] CO2 20(L) 22 - 29 mmol/L 05/19/2024 3:31 AM [facility] Calcium 8.6 8.4 - 10.4 mg/dL 05/19/2024 3:31 AM [facility] Anion Gap 6 6 - 16 mmol/L 05/19/2024 3:31 AM [facility] BUN 36(H) 5.3 - 18.7 mg/dL 05/19/2024 3:31 AM [facility] Creatinine 1.58(H) 0.72 - 1.25 mg/dL 05/19/2024 3:31 AM [facility] Albumin 1.6(L) 3.4 - 5.0 gm/dL 05/19/2024 3:31 AM [facility] Phosphorus 3.4 2.5 - 4.5 mg/dL 05/19/2024 3:31 AM [facility] eGFR by CKD-EPI 55(L) >=90 mL/min/1.7 3 m2 05/19/2024 3:31 AM [facility] Blood BLOOD SPECIMEN / Unknown Lab Venipuncture / Unknown 05/19/2024 2:16 AM SENIOR RESIDENT CARE DIRECTOR 05/19/2024 2:34 AM SENIOR RESIDENT CARE DIRECTOR Manpreet Stuart MD LAB - CHEMISTRY ORDE DENNIS [facility] [address] [place] [address] * (ABNORMAL) GLUCOSE - POINT OF CARE (05/18/2024 7:46 PM SENIOR RESIDENT CARE DIRECTOR) Pathologist [facility] Glucose WB/POC 249(H) 70 - 99 mg/dL 05/18/2024 7:56 PM SENIOR RESIDENT CARE DIRECTOR [facility] Specimen Type Arterial 05/18/2024 7:56 PM SENIOR RESIDENT CARE DIRECTOR [facility] Blood BLOOD SPECIMEN / Unknown 05/18/2024 7:46 PM SENIOR RESIDENT CARE DIRECTOR 05/18/2024 7:56 PM SENIOR RESIDENT CARE DIRECTOR Manpreet Stuart MD LAB - POINT OF CARE ORDERABLES [facility] [address] [place] [address] * (ABNORMAL) GLUCOSE - POINT OF CARE (05/18/2024 6:07 PM SENIOR RESIDENT CARE DIRECTOR) Glucose WB/POC 254(H) 70 - 99 mg/dL 05/20/2024 8:25 AM SENIOR RESIDENT CARE DIRECTOR [facility] Specimen Type Cap Fingerstick 2023 8:25 AM SENIOR RESIDENT CARE DIRECTOR [facility] Blood BLOOD SPECIMEN / Unknown 05/18/2024 6:07 PM SENIOR RESIDENT CARE DIRECTOR 05/20/2024 8:25 AM SENIOR RESIDENT CARE DIRECTOR Manpreet Stuart MD LAB - POINT OF CARE ORDERABLES Performing Organization Address [facility] de Phone Number [facility] [address] [place] [address] * (ABNORMAL) GLUCOSE - POINT OF CARE (05/18/2024 11:58 AM SENIOR RESIDENT CARE DIRECTOR) Glucose WB/POC 200(H) 70 - 99 mg/dL 05/18/2024 4:49 PM SENIOR RESIDENT CARE DIRECTOR [facility] Specimen Type Cap Fingerstick 2023 4:49 PM SENIOR RESIDENT CARE DIRECTOR [facility] Blood BLOOD SPECIMEN / Unknown 05/18/2024 11:58 AM SENIOR RESIDENT CARE DIRECTOR 05/18/2024 4:49 PM SENIOR RESIDENT CARE DIRECTOR Manpreet Stuart MD LAB - POINT OF CARE ORDERABLES Performing Organization Address [facility] Co de Phone Number [facility] [address] [place] [address] * (ABNORMAL) GLUCOSE - POINT OF CARE (05/18/2024 9:20 AM SENIOR RESIDENT CARE DIRECTOR) Glucose WB/POC 191(H) 70 - 99 mg/dL 05/18/2024 10:13 AM SENIOR RESIDENT CARE DIRECTOR [facility] Specimen Type Cap Fingerstick 2023 10:13 AM SENIOR RESIDENT CARE DIRECTOR [facility] Blood BLOOD SPECIMEN / Unknown 05/18/2024 9:20 AM SENIOR RESIDENT CARE DIRECTOR 05/18/2024 10:13 AM SENIOR RESIDENT CARE DIRECTOR Manpreet Stuart MD LAB - POINT OF CARE ORDERABLES Performing Organization Address [facility]/ZIP Co de Phone Number [facility] [address] [place], [place] [phone] * (ABNORMAL) GLUCOSE - POINT OF CARE (05/18/2024 7:42 AM SENIOR RESIDENT CARE DIRECTOR) Glucose WB/POC 197(H) 70 - 99 mg/dL 05/18/2024 7:56 AM [facility] Specimen Type Cap Fingerstick 2023 7:56 AM [facility] Blood BLOOD SPECIMEN / Unknown 05/18/2024 7:42 AM SENIOR RESIDENT CARE DIRECTOR 05/18/2024 7:56 AM SENIOR RESIDENT CARE DIRECTOR Manpreet Stuart MD LAB - POINT OF CARE ORDERABLES Performing Organization Address [facility] de Phone Number [facility] [address] [place] [address] * (ABNORMAL) RENAL FUNCTION PANEL (05/18/2024 3:38 AM SENIOR RESIDENT CARE DIRECTOR) Glucose 233(H) 70 - 99 mg/dL 05/18/2024 5:01 AM [facility] Sodium 136 136 - 145 mmol/L 05/18/2024 5:01 AM [facility] Potassium 4.7 3.5 - 5.1 mmol/L 05/18/2024 5:01 AM [facility] Chloride 111(H) 98 - 107 mmol/L 05/18/2024 5:01 AM [facility] CO2 21(L) 22 - 29 mmol/L 05/18/2024 5:01 AM [facility] Calcium 8.1(L) 8.4 - 10.4 mg/dL 05/18/2024 5:01 AM [facility] Anion Gap 4(L) 6 - 16 mmol/L 05/18/2024 5:01 AM [facility] BUN 35(H) 5.3 - 18.7 mg/dL 05/18/2024 5:01 AM [facility] Creatinine 1.62(H) 0.72 - 1.25 mg/dL 05/18/2024 5:01 AM [facility] Albumin 1.5(L) 3.4 - 5.0 gm/dL 05/18/2024 5:01 AM [facility] Phosphorus 3.3 2.5 - 4.5 mg/dL 05/18/2024 5:01 AM [facility] eGFR by CKD-EPI 53(L) >=90 mL/min/1.7 3 m2 05/18/2024 5:01 AM [facility] Blood BLOOD SPECIMEN / Unknown Lab Venipuncture / Unknown 05/18/2024 3:38 AM SENIOR RESIDENT CARE DIRECTOR 05/18/2024 4:20 AM SENIOR RESIDENT CARE DIRECTOR Manpreet Stuart MD LAB - CHEMISTRY MELIDA COLLINS Performing Organization Address City/State/[facility] Co de Phone Number [facility] [address] [place], [place] [phone] * (ABNORMAL) CBC W/O DIFFERENTIAL (05/18/2024 3:38 AM SENIOR RESIDENT CARE DIRECTOR) WBC 14.5(H) 4.0 - 10.7 x10E9/L 05/18/2024 4:40 AM [facility] RBC Count 2.76(L) 4.30 - 5.80 x10E12/L 05/18/2024 4:40 AM [facility] Hemoglobin 7.7(L) 13.3 - 17.5 g/dL 05/18/2024 4:40 AM [facility] Hematocrit 24.7(L) 38.7 - 51.1 % 05/18/2024 4:40 AM [facility] MCV 89.5 80.0 - 98.0 fL 05/18/2024 4:40 AM [facility] MCH 27.9 26.7 - 33.6 pg 05/18/2024 4:40 AM [facility] MCHC 31.2(L) 31.7 - 36.3 g/dL 05/18/2024 4:40 AM [facility] RDW-CV 13.8 11.3 - 14.8 % 05/18/2024 4:40 AM [facility] Platelet Count 330 150 - 420 x10E9/L 05/18/2024 4:40 AM SENIOR RESIDENT CARE DIRECTOR [facility] MPV 8.6 7.8 - 11.4 fL 05/18/2024 4:40 AM SENIOR RESIDENT CARE DIRECTOR [facility] Blood BLOOD SPECIMEN / Unknown Lab Venipuncture / Unknown 05/18/2024 3:38 AM SENIOR RESIDENT CARE DIRECTOR 05/18/2024 4:20 AM SENIOR RESIDENT CARE DIRECTOR Manpreet Stuart MD LAB - HEMATOLOGY ORD ERABLES [facility] [address] [place] [address] * (ABNORMAL) GLUCOSE - POINT OF CARE (05/17/2024 11:12 PM SENIOR RESIDENT CARE DIRECTOR) Glucose WB/POC 246(H) 70 - 99 mg/dL 05/18/2024 4:44 AM SENIOR RESIDENT CARE DIRECTOR [facility] Specimen Type Cap Fingerstick 2023 4:44 AM SENIOR RESIDENT CARE DIRECTOR [facility] Blood BLOOD SPECIMEN / Unknown 05/17/2024 11:12 PM SENIOR RESIDENT CARE DIRECTOR 05/18/2024 4:44 AM SENIOR RESIDENT CARE DIRECTOR Manpreet Stuart MD LAB - POINT OF CARE ORDERABLES Performing Organization Address [facility]/ZIP Co de Phone Number [facility] [address] [place] [address] * (ABNORMAL) GLUCOSE - POINT OF CARE (05/17/2024 10:29 PM SENIOR RESIDENT CARE DIRECTOR) Glucose WB/POC 252(H) 70 - 99 mg/dL 05/20/2024 8:25 AM SENIOR RESIDENT CARE DIRECTOR [facility] Specimen Type Cap Fingerstick 2023 8:25 AM SENIOR RESIDENT CARE DIRECTOR [facility] Blood BLOOD SPECIMEN / Unknown 05/17/2024 10:29 PM SENIOR RESIDENT CARE DIRECTOR 05/20/2024 8:25 AM SENIOR RESIDENT CARE DIRECTOR Manpreet Stuart MD LAB - POINT OF CARE ORDERABLES Performing Organization Address City/[facility]/ZIP Co de Phone Number [facility] [address] [place] [address] * (ABNORMAL) GLUCOSE - POINT OF CARE (05/17/2024 6:02 PM SENIOR RESIDENT CARE DIRECTOR) Glucose WB/POC 236(H) 70 - 99 mg/dL 05/20/2024 8:25 AM SENIOR RESIDENT CARE DIRECTOR [facility] Specimen Type Cap Fingerstick 2023 8:25 AM SENIOR RESIDENT CARE DIRECTOR [facility] Blood BLOOD SPECIMEN / Unknown 05/17/2024 6:02 PM SENIOR RESIDENT CARE DIRECTOR 05/20/2024 8:25 AM SENIOR RESIDENT CARE DIRECTOR Manpreet Stuart MD LAB - POINT OF CARE ORDERABLES Performing Organization Address [facility] Co de Phone Number [facility] [address] [place], [place] [phone] * (ABNORMAL) PROTEIN CREATININE RATIO URINE RANDOM PNL (05/17/2024 1:14 PM SENIOR RESIDENT CARE DIRECTOR) Protein Urine 54.6(H) <11.9 mg/dL 05/17/2024 1:53 PM SENIOR RESIDENT CARE DIRECTOR [facility] Creatinine Urine 77.41 mg/dL 05/17/2024 1:53 PM SENIOR RESIDENT CARE DIRECTOR [facility] Protein/Creatin ine Ratio Urine 0.71 05/17/2024 1:53 PM SENIOR RESIDENT CARE DIRECTOR [facility] Urine URINE SPECIMEN OBTAINED BY CLEAN CATCH PROCEDURE / Unknown Collection / Unknown 05/17/2024 1:14 PM SENIOR RESIDENT CARE DIRECTOR 05/17/2024 1:31 PM SENIOR RESIDENT CARE DIRECTOR Katerina Weaver DO LAB - URINE CHEMISTR Y ORDERABLES Performing Organization Address City/[facility]/ZIP Co de Phone Number [facility] [address] [place] [address] * VAS Arterial Ankle Arm Index (05/17/2024 12:04 PM SENIOR RESIDENT CARE DIRECTOR) Anatomical Region Laterality Modality Ankle / Foot, Upper Extremity Ul trasound 05/17/2024 11:1 9 AM SENIOR RESIDENT CARE DIRECTOR Narrative Procedure Note Gerry Villalobos MD - 05/17/2024 [facility] [address] [place], [place] [phone] Lower Extremity Arterial Doppler Report Pat.Name: RENE HYATT Pat.ID: [id number] St.Date: 05/17/2024 Exam Time: 11:19:00 AM Study Type:MONO/PVR Age: 11 1980,43Y Sex: MALE Sonogrphr: Marina Calderón RVT, MS Pat. Stat.:Inpatient Reason for Study: Left foot wound for months, little improvement History / Clinical: Hypertension, Diabetes, Morbid obesity Procedures: Ankle Arm Index Visit ID: [id number] ++++++++++++++++++++++++++++++++++++ SUMMARY: ++++++++++++++++++++++++++++++++++++ No evidence for significant [...] - POINT OF CARE (05/17/2024 11:57 AM SENIOR RESIDENT CARE DIRECTOR) Pathologist [facility] Glucose WB/POC 236(H) 70 - 99 mg/dL 05/17/2024 12:44 PM SENIOR RESIDENT CARE DIRECTOR [facility] Specimen Type Cap Fingerstick 2023 12:44 PM SENIOR RESIDENT CARE DIRECTOR [facility] Blood BLOOD SPECIMEN / Unknown 05/17/2024 11:57 AM SENIOR RESIDENT CARE DIRECTOR 05/17/2024 12:44 PM SENIOR RESIDENT CARE DIRECTOR Manpreet Stuart MD LAB - POINT OF CARE ORDERABLES Performing Organization Address City/State/[facility] Co de Phone Number [facility] [address] [place] [address] * (ABNORMAL) CBC W/O DIFFERENTIAL (05/17/2024 9:46 AM SENIOR RESIDENT CARE DIRECTOR) Pathologist [facility] WBC 15.5(H) 4.0 - 10.7 x10E9/L 05/17/2024 10:02 AM [facility] RBC Count 2.57(L) 4.30 - 5.80 x10E12/L 05/17/2024 10:02 AM [facility] Hemoglobin 7.1(L) 13.3 - 17.5 g/dL 05/17/2024 10:02 AM [facility] Hematocrit 23.2(L) 38.7 - 51.1 % 05/17/2024 10:02 AM [facility] MCV 90.3 80.0 - 98.0 fL 05/17/2024 10:02 AM [facility] MCH 27.6 26.7 - 33.6 pg 05/17/2024 10:02 AM [facility] MCHC 30.6(L) 31.7 - 36.3 g/dL 05/17/2024 10:02 AM [facility] RDW-CV 14.0 11.3 - 14.8 % 05/17/2024 10:02 AM [facility] Platelet Count 284 150 - 420 x10E9/L 05/17/2024 10:02 AM [facility] MPV 8.6 7.8 - 11.4 fL 05/17/2024 10:02 AM [facility] Blood BLOOD SPECIMEN / Unknown Lab Venipuncture / Unknown 05/17/2024 9:46 AM SENIOR RESIDENT CARE DIRECTOR 05/17/2024 9:54 AM SENIOR RESIDENT CARE DIRECTOR Manpreet Stuart MD LAB - HEMATOLOGY ORD ERABLES Performing Organization Address City/[facility]/ZIP Co de Phone Number [facility] [address] [place] [phone] * (ABNORMAL) GLUCOSE - POINT OF CARE (05/17/2024 7:57 AM SENIOR RESIDENT CARE DIRECTOR) Glucose WB/POC 254(H) 70 - 99 mg/dL 05/27/2024 7:26 PM SENIOR RESIDENT CARE DIRECTOR [facility] Specimen Type Cap Fingerstick 2023 7:26 PM [facility] Blood BLOOD SPECIMEN / Unknown 05/17/2024 7:57 AM SENIOR RESIDENT CARE DIRECTOR 05/27/2024 7:26 PM SENIOR RESIDENT CARE DIRECTOR Manpreet Stuart MD LAB - POINT OF CARE ORDERABLES [facility] [address] [place] [address] * COMPLEMENT C4 (05/17/2024 5:00 AM SENIOR RESIDENT CARE DIRECTOR) Complement C4 19 15 - 57 mg/dL 05/17/2024 10:52 AM SENIOR RESIDENT CARE DIRECTOR [facility] Blood BLOOD SPECIMEN / Unknown Lab Venipuncture / Unknown 05/17/2024 5:00 AM SENIOR RESIDENT CARE DIRECTOR 05/17/2024 5:57 AM SENIOR RESIDENT CARE DIRECTOR Katerina Weaver DO LAB - SEROLOGY ORDER MARA [address] [address], [facility] [phone] * COMPLEMENT C3 (05/17/2024 5:00 AM SENIOR RESIDENT CARE DIRECTOR) Complement C3 100 82 - 193 mg/dL 05/17/2024 10:52 AM [facility] Blood BLOOD SPECIMEN / Unknown Lab Venipuncture / Unknown 05/17/2024 5:00 AM SENIOR RESIDENT CARE DIRECTOR 05/17/2024 5:57 AM SENIOR RESIDENT CARE DIRECTOR Katerina Weaver DO LAB - CHEMISTRY ORDE RABLES Performing Organization Address City/[facility]/ZIP Co de Phone Number [address] [address], [facility] [phone] * (ABNORMAL) BASIC METABOLIC PANEL (CALCIUM TOTAL) (05/17/2024 5:00 AM SENIOR RESIDENT CARE DIRECTOR) Glucose 207(H) 70 - 99 mg/dL 05/17/2024 6:26 AM [facility] Sodium 135(L) 136 - 145 mmol/L 05/17/2024 6:26 AM [facility] Potassium 4.2 3.5 - 5.1 mmol/L 05/17/2024 6:26 AM [facility] Chloride 107 98 - 107 mmol/L 05/17/2024 6:26 AM [facility] CO2 20(L) 22 - 29 mmol/L 05/17/2024 6:26 AM [facility] Calcium 7.9(L) 8.4 - 10.4 mg/dL 05/17/2024 6:26 AM [facility] Anion Gap 8 6 - 16 mmol/L 05/17/2024 6:26 AM [facility] BUN 37(H) 5.3 - 18.7 mg/dL 05/17/2024 6:26 AM [facility] Creatinine 1.83(H) 0.72 - 1.25 mg/dL 05/17/2024 6:26 AM [facility] eGFR by CKD-EPI 46(L) >=90 mL/min/1.7 3 m2 05/17/2024 6:26 AM SENIOR RESIDENT CARE DIRECTOR [facility] Blood BLOOD SPECIMEN / Unknown Lab Venipuncture / Unknown 05/17/2024 5:00 AM SENIOR RESIDENT CARE DIRECTOR 05/17/2024 5:57 AM SENIOR RESIDENT CARE DIRECTOR Katerina Weaver DO LAB - CHEMISTRY ORDE EDLES [facility] [address] [place] [phone] * (ABNORMAL) GLUCOSE - POINT OF CARE (05/16/2024 9:36 PM SENIOR RESIDENT CARE DIRECTOR) Glucose WB/POC 317(H) 70 - 99 mg/dL 05/26/2024 8:46 PM SENIOR RESIDENT CARE DIRECTOR [facility] Specimen Type Arterial 05/26/2024 8:46 PM SENIOR RESIDENT CARE DIRECTOR [facility] Blood BLOOD SPECIMEN / Unknown 05/16/2024 9:36 PM SENIOR RESIDENT CARE DIRECTOR 05/26/2024 8:46 PM SENIOR RESIDENT CARE DIRECTOR Zana Tolentino MD LAB - POINT OF CARE ORDERABLES Performing Organization Address [facility]/ZIP Co de Phone Number [facility] [address] [place] [phone] * (ABNORMAL) GLUCOSE - POINT OF CARE (05/16/2024 6:18 PM SENIOR RESIDENT CARE DIRECTOR) Glucose WB/POC 231(H) 70 - 99 mg/dL 05/27/2024 7:26 PM SENIOR RESIDENT CARE DIRECTOR [facility] Specimen Type Cap Fingerstick 2023 7:26 PM SENIOR RESIDENT CARE DIRECTOR [facility] Blood BLOOD SPECIMEN / Unknown 05/16/2024 6:18 PM SENIOR RESIDENT CARE DIRECTOR 05/27/2024 7:26 PM SENIOR RESIDENT CARE DIRECTOR Zana Tolentino MD LAB - POINT OF CARE ORDERABLES Performing Organization Address City/[facility]/ZIP Co de Phone Number [facility] [address] [place] [phone] * MRI Foot Left Wo Contrast (05/16/2024 5:20 PM SENIOR RESIDENT CARE DIRECTOR) Anatomical Region Laterality Modality Ankle / Foot Magnetic Resonan ce 05/17/2024 8:48 AM SENIOR RESIDENT CARE DIRECTOR Impressions 05/17/2024 9:04 AM SENIOR RESIDENT CARE DIRECTOR IMPRESSION: 1. ??Large soft tissue wound//debridement surrounding the calcaneus and extending to bone. 2. ??There is mild osteomyelitis in the lateral calcaneal tubercle. ??However most of the calcaneal marrow changes are likely reactive. 3. ??No visible abscess. 4. ??Detached peroneal tendons. 5. ??Other findings as described > Interpreting Provider: Gila Licea MD on 05/17/2024 9:04 AM Narrative 05/17/2024 9:04 AM SENIOR RESIDENT CARE DIRECTOR PROCEDURE: ??MRI FOOT LEFT WO CONTRAST DATE/TIME [...] TO MICROSCOPIC NO CULTURE (05/16/2024 12:57 PM SENIOR RESIDENT CARE DIRECTOR) Color UA Yellow Yellow, Straw 05/16/2024 1:17 PM SENIOR RESIDENT CARE DIRECTOR [facility] Clarity UA Turbid(A) Clear 05/16/2024 1:17 PM SENIOR RESIDENT CARE DIRECTOR [facility] Glucose UA Normal Normal 05/16/2024 1:17 PM SENIOR RESIDENT CARE DIRECTOR [facility] Bilirubin UA Negative Negative 05/16/2024 1:17 PM SENIOR RESIDENT CARE DIRECTOR [facility] Ketone UA Trace(A) Negative 05/16/2024 1:17 PM SENIOR RESIDENT CARE DIRECTOR [facility] Specific [place] UA 1.016 1.005 - 1.030 05/16/2024 1:17 PM SENIOR RESIDENT CARE DIRECTOR [facility] Blood UA 2+(A) Negative 05/16/2024 1:17 PM SENIOR RESIDENT CARE DIRECTOR [facility] pH UA 5.5 5.0 - 9.0 pH 05/16/2024 1:17 PM SENIOR RESIDENT CARE DIRECTOR [facility] Protein UA 1+(A) Negative 05/16/2024 1:17 PM SENIOR RESIDENT CARE DIRECTOR [facility] Urobilinogen UA Normal Normal mg/dL 05/16/2024 1:17 PM SENIOR RESIDENT CARE DIRECTOR [facility] Nitrite UA Negative Negative 05/16/2024 1:17 PM SENIOR RESIDENT CARE DIRECTOR [facility] Leukocyte UA 75 MIKKI/uL(A) Negative 05/16/2024 1:17 PM SENIOR RESIDENT CARE DIRECTOR [facility] RBC UA None Seen 0 - 5 # /hpf 05/16/2024 1:17 PM SENIOR RESIDENT CARE DIRECTOR [facility] WBC UA 6-10(A) 0 - 5 # /hpf 05/16/2024 1:17 PM SENIOR RESIDENT CARE DIRECTOR [facility] Bacteria UA None Seen None Seen 05/16/2024 1:17 PM SENIOR RESIDENT CARE DIRECTOR [facility] Squamous Epithelial Cells 0-2 0 - 5 /hpf 05/16/2024 1:17 PM SENIOR RESIDENT CARE DIRECTOR [facility] Budding Yeast Few(A) None seen /hpf 05/16/2024 1:17 PM SENIOR RESIDENT CARE DIRECTOR [facility] Urine URINE SPECIMEN OBTAINED BY CLEAN CATCH PROCEDURE / Unknown Collection / Unknown 05/16/2024 12:57 PM SENIOR RESIDENT CARE DIRECTOR 05/16/2024 1:04 PM SENIOR RESIDENT CARE DIRECTOR Narrative [facility] - 05/16/2024 1:17 PM SENIOR RESIDENT CARE DIRECTOR Katerina Weaver DO LAB - URINALYSIS ORD ERABLES Performing Organization Address [facility] Co de Phone Number [facility] [address] [place] [phone] * (ABNORMAL) GLUCOSE - POINT OF CARE (05/16/2024 11:07 AM SENIOR RESIDENT CARE DIRECTOR) Glucose WB/POC 208(H) 70 - 99 mg/dL 05/16/2024 12:12 PM SENIOR RESIDENT CARE DIRECTOR [facility] Specimen Type Cap Fingerstick 2023 12:12 PM SENIOR RESIDENT CARE DIRECTOR [facility] Blood BLOOD SPECIMEN / Unknown 05/16/2024 11:07 AM SENIOR RESIDENT CARE DIRECTOR 05/16/2024 12:12 PM SENIOR RESIDENT CARE DIRECTOR Zana Tolentino MD LAB - POINT OF CARE ORDERABLES Performing Organization Address [facility] Co de Phone Number [facility] [address] [place] [phone] * (ABNORMAL) VANCOMYCIN LEVEL PEAK (05/16/2024 9:04 AM SENIOR RESIDENT CARE DIRECTOR) Vancomycin Peak 40.3(H) 25.0 - 40.0 ug/mL 05/16/2024 9:26 AM SENIOR RESIDENT CARE DIRECTOR [facility] Blood BLOOD SPECIMEN / Unknown Lab Venipuncture / Unknown 05/16/2024 9:04 AM SENIOR RESIDENT CARE DIRECTOR 05/16/2024 9:06 AM SENIOR RESIDENT CARE DIRECTOR Hattie Liao MD LAB - CHEMISTRY MELIDA COLLINS Performing Organization Address City/[facility]/ZIP Co de Phone Number [facility] [address] [place] [phone] * (ABNORMAL) GLUCOSE - POINT OF CARE (05/16/2024 7:53 AM SENIOR RESIDENT CARE DIRECTOR) Glucose WB/POC 222(H) 70 - 99 mg/dL 05/16/2024 8:08 AM SENIOR RESIDENT CARE DIRECTOR [facility] Specimen Type Cap Fingerstick 2023 8:08 AM SENIOR RESIDENT CARE DIRECTOR [facility] Blood BLOOD SPECIMEN / Unknown 05/16/2024 7:53 AM SENIOR RESIDENT CARE DIRECTOR 05/16/2024 8:07 AM SENIOR RESIDENT CARE DIRECTOR Zana Tolentino MD LAB - POINT OF CARE ORDERABLES Performing Organization Address [facility] Co de Phone Number [facility] [address] [place] [phone] * (ABNORMAL) DIFFERENTIAL MANUAL (05/16/2024 3:09 AM SENIOR RESIDENT CARE DIRECTOR) Neutrophil % 88(H) 41 - 74 % 05/16/2024 4:51 AM SENIOR RESIDENT CARE DIRECTOR [facility] Lymphocyte % 7(L) 17 - 47 % 05/16/2024 4:51 AM [facility] Monocyte % 4 3 - 11 % 05/16/2024 4:51 AM [facility] Myelocyte % 1(H) 0% % 05/16/2024 4:51 AM [facility] Neutrophil Absolute 19.10(H) 1.60 - 7.50 x10E9/L 05/16/2024 4:51 AM [facility] Lymphocyte Absolute 1.52 1.00 - 4.40 x10E9/L 05/16/2024 4:51 AM [facility] Monocyte Absolute 0.87 0.15 - 1.00 x10E9/L 05/16/2024 4:51 AM [facility] RBC Morphology NORMAL 05/16/2024 4:51 AM [facility] Platelet Morphology NORMAL 05/16/2024 4:51 AM [facility] Blood BLOOD SPECIMEN / Unknown Lab Venipuncture / Unknown 05/16/2024 3:09 AM SENIOR RESIDENT CARE DIRECTOR 05/16/2024 4:09 AM SENIOR RESIDENT CARE DIRECTOR Nicanor Richter MD LAB - HEMATOLOGY ORDERABLES Performing Organization Address City/[facility]/ZIP Co de Phone Number [facility] [address] [place] [phone] * (ABNORMAL) RENAL FUNCTION PANEL (05/16/2024 3:09 AM SENIOR RESIDENT CARE DIRECTOR) Glucose 185(H) 70 - 99 mg/dL 05/16/2024 4:44 AM SENIOR RESIDENT CARE DIRECTOR [facility] Sodium 133(L) 136 - 145 mmol/L 05/16/2024 4:44 AM [facility] Potassium 4.2 3.5 - 5.1 mmol/L 05/16/2024 4:44 AM [facility] Chloride 107 98 - 107 mmol/L 05/16/2024 4:44 AM [facility] CO2 19(L) 22 - 29 mmol/L 05/16/2024 4:44 AM [facility] Calcium 8.0(L) 8.4 - 10.4 mg/dL 05/16/2024 4:44 AM [facility] Anion Gap 7 6 - 16 mmol/L 05/16/2024 4:44 AM [facility] BUN 35(H) 5.3 - 18.7 mg/dL 05/16/2024 4:44 AM [facility] Creatinine 2.01(H) 0.72 - 1.25 mg/dL 05/16/2024 4:44 AM [facility] Albumin 1.4(L) 3.4 - 5.0 gm/dL 05/16/2024 4:44 AM [facility] Phosphorus 4.5 2.5 - 4.5 mg/dL 05/16/2024 4:44 AM [facility] eGFR by CKD-EPI 41(L) >=90 mL/min/1.7 3 m2 05/16/2024 4:44 AM [facility] Blood BLOOD SPECIMEN / Unknown Lab Venipuncture / Unknown 05/16/2024 3:09 AM SENIOR RESIDENT CARE DIRECTOR 05/16/2024 4:04 AM [facility] Nicanor Richter MD LAB - CHEMISTRY ORDERABLES [facility] [address] [place] [address] * (ABNORMAL) CBC W AUTO DIFFERENTIAL (05/16/2024 3:09 AM [facility]) WBC 21.7(H) 4.0 - 10.7 x10E9/L 05/16/2024 4:51 AM [facility] RBC Count 2.62(L) 4.30 - 5.80 x10E12/L 05/16/2024 4:51 AM SENIOR RESIDENT CARE DIRECTOR [facility] Hemoglobin 7.3(L) 13.3 - 17.5 g/dL 05/16/2024 4:51 AM SENIOR RESIDENT CARE DIRECTOR [facility] Hematocrit 23.6(L) 38.7 - 51.1 % 05/16/2024 4:51 AM [facility] MCV 90.1 80.0 - 98.0 fL 05/16/2024 4:51 AM SENIOR RESIDENT CARE DIRECTOR [facility] MCH 27.9 26.7 - 33.6 pg 05/16/2024 4:51 AM [facility] MCHC 30.9(L) 31.7 - 36.3 g/dL 05/16/2024 4:51 AM [facility] RDW-CV 13.9 11.3 - 14.8 % 05/16/2024 4:51 AM [facility] Platelet Count 300 150 - 420 x10E9/L 05/16/2024 4:51 AM [facility] MPV 9.3 7.8 - 11.4 fL 05/16/2024 4:51 AM [facility] Blood BLOOD SPECIMEN / Unknown Lab Venipuncture / Unknown 05/16/2024 3:09 AM SENIOR RESIDENT CARE DIRECTOR 05/16/2024 4:09 AM SENIOR RESIDENT CARE DIRECTOR Nicanor Richter MD LAB - HEMATOLOGY ORDERABLES Performing Organization Address City/[facility]/ZIP Co de Phone Number [facility] [address] [place] [phone] * (ABNORMAL) GLUCOSE - POINT OF CARE (05/15/2024 8:43 PM SENIOR RESIDENT CARE DIRECTOR) [facility] Glucose WB/POC 171(H) 70 - 99 mg/dL 05/20/2024 8:25 AM SENIOR RESIDENT CARE DIRECTOR [facility] Specimen Type Arterial 05/20/2024 8:25 AM [facility] Blood BLOOD SPECIMEN / Unknown 05/15/2024 8:43 PM SENIOR RESIDENT CARE DIRECTOR 05/20/2024 8:25 AM SENIOR RESIDENT CARE DIRECTOR Zana Tolentino MD LAB - POINT OF CARE ORDERABLES [facility] [address] [place] [address] * (ABNORMAL) GLUCOSE - POINT OF CARE (05/15/2024 6:01 PM SENIOR RESIDENT CARE DIRECTOR) Glucose WB/POC 179(H) 70 - 99 mg/dL 05/15/2024 8:26 PM SENIOR RESIDENT CARE DIRECTOR [facility] Specimen Type Cap Fingerstick 2023 8:26 PM SENIOR RESIDENT CARE DIRECTOR [facility] Blood BLOOD SPECIMEN / Unknown 05/15/2024 6:01 PM SENIOR RESIDENT CARE DIRECTOR 05/15/2024 8:26 PM SENIOR RESIDENT CARE DIRECTOR Zana Tolentino MD LAB - POINT OF CARE ORDERABLES [facility] [address] [place] [address] * XR Foot Left 2Vw (05/15/2024 5:31 PM SENIOR RESIDENT CARE DIRECTOR) Anatomical Region Laterality Modality Ankle / Foot Radiographic Haylee ging 05/16/2024 7:16 AM SENIOR RESIDENT CARE DIRECTOR Impressions 05/16/2024 9:15 AM SENIOR RESIDENT CARE DIRECTOR IMPRESSION: Ulceration versus surgical debridement of the posterior plantar soft tissue of the foot and calcaneus. Report drafted by Ketan Meier MD (regional vice president surgical sales) IGila MD have personally reviewed and interpreted this examination/study. > Interpreting Provider: Gila Licea MD on 05/16/2024 9:15 AM Narrative 05/16/2024 9:15 AM SENIOR RESIDENT CARE DIRECTOR EXAMINATION: XR FOOT LEFT 2VW HISTORY: L08.9: [...] calcaneus. Report drafted by Ketan Meier MD (regional vice president surgical sales) I, Gila Licea MD have personally reviewed and interpreted this examination/study. > Interpreting Provider: Gila Licea MD on 05/16/2024 9:15 AM Abby Quinn DPM DIAGNOSTIC IMAGING O RDERABLES * (ABNORMAL) GLUCOSE - POINT OF CARE (05/15/2024 5:06 PM SENIOR RESIDENT CARE DIRECTOR) Glucose WB/POC 191(H) 70 - 99 mg/dL 05/16/2024 7:35 AM SENIOR RESIDENT CARE DIRECTOR [facility] Specimen Type Cap Fingerstick 2023 7:35 AM SENIOR RESIDENT CARE DIRECTOR [facility] Blood BLOOD SPECIMEN / Unknown 05/15/2024 5:06 PM SENIOR RESIDENT CARE DIRECTOR 05/16/2024 7:35 AM SENIOR RESIDENT CARE DIRECTOR Zana Tolentino MD LAB - POINT OF CARE ORDERABLES [facility] [address] [place] [address] * (ABNORMAL) CULTURE TISSUE+GRAM STAIN (05/15/2024 4:34 PM SENIOR RESIDENT CARE DIRECTOR) Culture Rare Streptococcus agalactiae (Group B)(AA) 05/18/2024 11:57 PM SENIOR RESIDENT CARE DIRECTOR [facility] MICROBIOLOGY Gram Stain Rare Polymorphonuclear cells 05/18/2024 11:57 PM SENIOR RESIDENT CARE DIRECTOR [facility] NETWORK MICROBIOLOGY Gram Stain No organisms seen 024 11:57 PM SENIOR RESIDENT CARE DIRECTOR [facility] MICROBIOLOGY Microbiology ENTIRE FOOT / Unknown 05/15/2024 4:34 PM SENIOR RESIDENT CARE DIRECTOR 05/15/2024 8:29 PM SENIOR RESIDENT CARE DIRECTOR Narrative [facility] NETWORK MICROBIOLOGY - 05/18/2024 11:57 PM SENIOR RESIDENT CARE DIRECTOR Susceptibility testing of penicillin, other beta-lactam antibiotics, and vancomycin is not necessary for beta-hemolytic streptococci groups A,B,C and G because resistant strains have not been recognized. Surgical Description: Left Foot Abby Quinn [facility] - MICROBIOLOGY O EMILY Performing Organization Address [facility] Phone Number [facility] MICROBIOLOGY [address] [facility] [place] [address], [facility] [phone] * (ABNORMAL) CULTURE ANAEROBE (05/15/2024 4:34 PM SENIOR RESIDENT CARE DIRECTOR) Culture Rare Prevotella bergensis(A) JEFF 05/20/2024 9:23 AM SENIOR RESIDENT CARE DIRECTOR [facility]WORK MICROBIOLOGY Comment:Beta-lactamase posit micah Culture Light Parvimonas micra(A) 05/20/2024 9:23 AM SENIOR RESIDENT CARE DIRECTOR [facility] NETWORK MICROBIOLOGY Microbiology ENTIRE FOOT / Unknown 05/15/2024 4:34 PM SENIOR RESIDENT CARE DIRECTOR 05/15/2024 8:29 PM SENIOR RESIDENT CARE DIRECTOR Narrative [facility] MICROBIOLOGY - 05/20/2024 9:23 AM SENIOR RESIDENT CARE DIRECTOR Surgical Description: Left Foot Abby Quinn [facility] - MICROBIOLOGY O EMILY Performing Organization Address [facility] Phone Number [facility] MICROBIOLOGY [address] [place] [address], [facility] [phone] * (ABNORMAL) CULTURE TISSUE+GRAM STAIN (05/15/2024 4:33 PM SENIOR RESIDENT CARE DIRECTOR) Culture Heavy Morganella morganii(AA) JEFF 05/19/2024 6:31 AM SENIOR RESIDENT CARE DIRECTOR [facility] NET[facility] MICROBIOLOGY Culture Heavy Streptococcus agalactiae (Group B)(AA) 05/19/2024 6:31 AM SENIOR RESIDENT CARE DIRECTOR [facility] MICROBIOLOGY Culture Rare Proteus vulgaris(AA) JEFF 05/19/2024 6:31 AM SENIOR RESIDENT CARE DIRECTOR [facility] MICROBIOLOG[facility] Gram Stain Heavy Polymorphonuclear cells(AA) 05/19/2024 6:31 AM SENIOR RESIDENT CARE DIRECTOR [facility] MICROBIOLOG[facility] Gram Stain Heavy Gram-positive cocci(AA) 05/19/2024 6:31 AM [facility] MICROBIOLOGY Gram Stain Heavy Gram-variable bacilli(AA) 05/19/2024 6:31 AM [facility] MICROBIOLOGY Microbiology ENTIRE FOOT / Unknown 05/15/2024 4:33 PM SENIOR RESIDENT CARE DIRECTOR 05/15/2024 8:29 PM SENIOR RESIDENT CARE DIRECTOR Narrative [facility] MICROBIOLOGY - 05/19/2024 6:31 AM SENIOR RESIDENT CARE DIRECTOR Susceptibility testing of penicillin, other beta-lactam antibiotics, [...] Abby Quinn DPM LAB - MICROBIOLOGY O RDERABLES [facility] MICROBIOLOGY [address] [place] [address], [facility] [phone] * (ABNORMAL) CULTURE ANAEROBE (05/15/2024 4:33 PM SENIOR RESIDENT CARE DIRECTOR) Culture Heavy Parvimonas micra(A) JEFF 05/20/2024 9:23 AM SENIOR RESIDENT CARE DIRECTOR [facility] NETWORK MICROBIOLOGY Culture Heavy Prevotella bergensis(A) 05/20/2024 9:23 AM SENIOR RESIDENT CARE DIRECTOR [facility] NETWORK MICROBIOLOGY Comment:Beta-lactamase posit micah Microbiology ENTIRE FOOT / Unknown 05/15/2024 4:33 PM SENIOR RESIDENT CARE DIRECTOR 05/15/2024 8:29 PM SENIOR RESIDENT CARE DIRECTOR Narrative [facility] MICROBIOLOGY - 05/20/2024 9:23 AM SENIOR RESIDENT CARE DIRECTOR Surgical Description: Calcaneus Bone Left Foot Abby Quinn DPM LAB - MICROBIOLOGY O RDERABLES [facility] MICROBIOLOGY [address] [place] [address], [facility] [phone] * PATHOLOGY TISSUE EXAM (STL) (05/15/2024 4:29 PM SENIOR RESIDENT CARE DIRECTOR) Case Report Surgical Pathology Report ? Case: [id number] ? Authorizing Provider: ??Abby Quinn DPM ? Collected: ? 05/15/2024 04:29 PM ? Ordering Location: ? [facility] ?Received: ?05/16/2024 08:13 AM ? Pathologist: ? Kaci Mayo MD ? Specimen: ?Bone Debridement, Calcaneus Bone Left Foot ? 05/18/2024 10:44 AM [facility] Final Diagnosis Bone, left calcaneus, debridement - Focal acute osteomyelitis 05/18/2024 10:44 AM [facility] Clinical History The patient is a 43-year-old man with left foot infection. Operative procedure: irrigation/debridemen t of foot/ankle. 05/18/2024 10:44 AM [facility] Gross Description The requisition and specimen(s) [...] A1, following decalcification. MB 05/18/2024 10:44 AM [facility] Microscopic Description Microscopic examination substantiates the above diagnosis. 05/18/2024 10:44 AM [facility] Pathologist Location at [facility] 05/18/2024 10:44 AM [facility] Disclaimer All histochemical and/or immunohistochemical results are interpreted with controls that demonstrate appropriate staining reactions before reporting results. Note on use of immunocytochemistry reagents: This test was developed and its performance characteristic determined by [facility], Department of Laboratory Medicine. It has [...] be interpreted with caution. 05/18/2024 10:44 AM [facility] Embedded Images 05/18/2024 10:44 AM SENIOR RESIDENT CARE DIRECTOR [facility] Pathology/Cytolo gy DEBRIDEMENT OF BONE / Unknown 05/15/2024 4:29 PM SENIOR RESIDENT CARE DIRECTOR 05/16/2024 8:13 AM SENIOR RESIDENT CARE DIRECTOR Abby Quinn DPM LAB - PATHOLOGY/CYTO LOGY ORDERABLES Performing Organization Address City/[facility]/ZIP Co de Phone Number [facility] [address] [place] [phone] * (ABNORMAL) GLUCOSE - POINT OF CARE (05/15/2024 1:31 PM SENIOR RESIDENT CARE DIRECTOR) Glucose WB/POC 177(H) 70 - 99 mg/dL 05/27/2024 7:26 PM SENIOR RESIDENT CARE DIRECTOR [facility] Specimen Type Cap Fingerstick 2023 7:26 PM SENIOR RESIDENT CARE DIRECTOR [facility] Blood BLOOD SPECIMEN / Unknown 05/15/2024 1:31 PM SENIOR RESIDENT CARE DIRECTOR 05/27/2024 7:26 PM SENIOR RESIDENT CARE DIRECTOR Zana Tolentino MD LAB - POINT OF CARE ORDERABLES Performing Organization Address [facility] Co de Phone Number [facility] [address] [place] [address] * (ABNORMAL) GLUCOSE - POINT OF CARE (05/15/2024 7:50 AM SENIOR RESIDENT CARE DIRECTOR) Glucose WB/POC 239(H) 70 - 99 mg/dL 05/15/2024 8:11 AM SENIOR RESIDENT CARE DIRECTOR [facility] Specimen Type Cap Fingerstick 2023 8:11 AM SENIOR RESIDENT CARE DIRECTOR [facility] Blood BLOOD SPECIMEN / Unknown 05/15/2024 7:50 AM SENIOR RESIDENT CARE DIRECTOR 05/15/2024 8:11 AM SENIOR RESIDENT CARE DIRECTOR Zana Tolentino MD LAB - POINT OF CARE ORDERABLES Performing Organization Address City/[facility]/ZIP Co de Phone Number [facility] [address] [place] [address] * (ABNORMAL) DIFFERENTIAL MANUAL (05/15/2024 12:13 AM SENIOR RESIDENT CARE DIRECTOR) Neutrophil % 82(H) 41 - 74 % 05/15/2024 1:28 AM [facility] Lymphocyte % 9(L) 17 - 47 % 05/15/2024 1:28 AM [facility] Monocyte % 6 3 - 11 % 05/15/2024 1:28 AM [facility] Eosinophil % 2 0 - 7 % 05/15/2024 1:28 AM [facility] Metamyelocyte % 1(H) 0% % 1:28 AM [facility] Neutrophil Absolute 20.58(H) 1.60 - 7.50 x10E9/L 05/15/2024 1:28 AM [facility] Lymphocyte Absolute 2.26 1.00 - 4.40 x10E9/L 05/15/2024 1:28 AM [facility] Monocyte Absolute 1.51(H) 0.15 - 1.00 x10E9/L 05/15/2024 1:28 AM [facility] Eosinophil Absolute 0.50 0.00 - 0.60 x10E9/L 05/15/2024 1:28 AM [facility] RBC Morphology REVIEWED 05/15/2024 1:28 AM [facility] Microcytosis MODERATE(A) (none) 05/15/2024 1:28 AM [facility] Blood BLOOD SPECIMEN / Unknown Lab Venipuncture / Unknown 05/15/2024 12:13 AM SENIOR RESIDENT CARE DIRECTOR 05/15/2024 12:23 AM SENIOR RESIDENT CARE DIRECTOR Nicanor Richter MD LAB - HEMATOLOGY ORDERABLES Performing Organization Address City/State/[facility] Co de Phone Number [facility] [address] [place], [place] [phone] * VANCOMYCIN LEVEL TROUGH (05/15/2024 12:13 AM SENIOR RESIDENT CARE DIRECTOR) [facility] Vancomycin Trough 18.2 10.0 - 20.0 ug/mL 05/15/2024 12:52 AM [facility] Blood BLOOD SPECIMEN / Unknown Lab Venipuncture / Unknown 05/15/2024 12:13 AM SENIOR RESIDENT CARE DIRECTOR 05/15/2024 12:23 AM SENIOR RESIDENT CARE DIRECTOR Hattie Liao MD LAB - CHEMISTRY MELIDA COLLINS Performing Organization Address [facility] de Phone Number [facility] [address] [place] [address] * (ABNORMAL) HEMOGLOBIN A1C (05/15/2024 12:13 AM SENIOR RESIDENT CARE DIRECTOR) Hemoglobin A1c 6.6(H) <5.7 % 05/15/2024 12:56 AM [facility] Estimated Average Glucose 143 mg/dL 05/15/2024 12:56 AM [facility] Blood BLOOD SPECIMEN / Unknown Lab Venipuncture / Unknown 05/15/2024 12:13 AM SENIOR RESIDENT CARE DIRECTOR 05/15/2024 12:23 AM SENIOR RESIDENT CARE DIRECTOR Narrative [facility] - 05/15/2024 12:56 AM SENIOR RESIDENT CARE DIRECTOR HbA1c Interpretation: Normal: < 5.7% Pre-diabetes: 5.7-6.4% [...] - CHEMISTRY MELIDA COLLINS Performing Organization Address [facility] Co de Phone Number [facility] [address] [place] [address] * (ABNORMAL) RENAL FUNCTION PANEL (05/15/2024 12:13 AM SENIOR RESIDENT CARE DIRECTOR) Glucose 235(H) 70 - 99 mg/dL 05/15/2024 12:55 AM [facility] Sodium 132(L) 136 - 145 mmol/L 05/15/2024 12:55 AM [facility] Potassium 4.1 3.5 - 5.1 mmol/L 05/15/2024 12:55 AM [facility] Chloride 103 98 - 107 mmol/L 05/15/2024 12:55 AM [facility] CO2 22 22 - 29 mmol/L 05/15/2024 12:55 AM [facility] Calcium 8.2(L) 8.4 - 10.4 mg/dL 05/15/2024 12:55 AM [facility] Anion Gap 7 6 - 16 mmol/L 05/15/2024 12:55 AM [facility] BUN 31(H) 5.3 - 18.7 mg/dL 05/15/2024 12:55 AM [facility] Creatinine 1.69(H) 0.72 - 1.25 mg/dL 05/15/2024 12:55 AM [facility] Albumin 1.6(L) 3.4 - 5.0 gm/dL 05/15/2024 12:55 AM [facility] Phosphorus 3.3 2.5 - 4.5 mg/dL 05/15/2024 12:55 AM [facility] eGFR by CKD-EPI 51(L) >=90 mL/min/1.7 3 m2 05/15/2024 12:55 AM [facility] Blood BLOOD SPECIMEN / Unknown Lab Venipuncture / Unknown 05/15/2024 12:13 AM SENIOR RESIDENT CARE DIRECTOR 05/15/2024 12:23 AM [facility] Nicanor Richter MD LAB - CHEMISTRY ORDERABLES [facility] [address] [place] [address] * (ABNORMAL) CBC W AUTO DIFFERENTIAL (05/15/2024 12:13 AM [facility]) WBC 25.1(H) 4.0 - 10.7 x10E9/L 05/15/2024 1:28 AM [facility] RBC Count 2.76(L) 4.30 - 5.80 x10E12/L 05/15/2024 1:28 AM [facility] Hemoglobin 7.7(L) 13.3 - 17.5 g/dL 05/15/2024 1:28 AM [facility] Hematocrit 24.6(L) 38.7 - 51.1 % 05/15/2024 1:28 AM [facility] MCV 89.1 80.0 - 98.0 fL 05/15/2024 1:28 AM [facility] MCH 27.9 26.7 - 33.6 pg 05/15/2024 1:28 AM [facility] MCHC 31.3(L) 31.7 - 36.3 g/dL 05/15/2024 1:28 AM [facility] RDW-CV 13.8 11.3 - 14.8 % 05/15/2024 1:28 AM [facility] Platelet Count 334 150 - 420 x10E9/L 05/15/2024 1:28 AM [facility] MPV 8.7 7.8 - 11.4 fL 05/15/2024 1:28 AM [facility] Blood BLOOD SPECIMEN / Unknown Lab Venipuncture / Unknown 05/15/2024 12:13 AM SENIOR RESIDENT CARE DIRECTOR 05/15/2024 12:23 AM SENIOR RESIDENT CARE DIRECTOR Nicanor Richter MD LAB - HEMATOLOGY ORDERABLES Performing Organization Address [facility]/State/[facility] Co de Phone Number [facility] [address] [place] [address] * (ABNORMAL) GLUCOSE - POINT OF CARE (05/14/2024 10:02 PM SENIOR RESIDENT CARE DIRECTOR) Glucose WB/POC 234(H) 70 - 99 mg/dL 05/14/2024 10:11 PM [facility] Specimen Type Arterial 05/14/2024 10:11 PM [facility] Blood BLOOD SPECIMEN / Unknown 05/14/2024 10:02 PM SENIOR RESIDENT CARE DIRECTOR 05/14/2024 10:11 PM SENIOR RESIDENT CARE DIRECTOR Zana Tolentino MD LAB - POINT OF CARE ORDERABLES Performing Organization Address [facility] de Phone Number [facility] [address] [place] [phone] * (ABNORMAL) PROTEIN CREATININE RATIO URINE RANDOM PNL (05/14/2024 5:31 PM SENIOR RESIDENT CARE DIRECTOR) Protein Urine 183.8(H) <11.9 mg/dL 05/14/2024 5:52 PM SENIOR RESIDENT CARE DIRECTOR [facility] Creatinine Urine 181.54 mg/dL 05/14/2024 5:52 PM SENIOR RESIDENT CARE DIRECTOR [facility] Protein/Creatin ine Ratio Urine 1.01 05/14/2024 5:52 PM SENIOR RESIDENT CARE DIRECTOR [facility] Urine URINE SPECIMEN OBTAINED BY CLEAN CATCH PROCEDURE / Unknown Collection / Unknown 05/14/2024 5:31 PM SENIOR RESIDENT CARE DIRECTOR 05/14/2024 5:36 PM SENIOR RESIDENT CARE DIRECTOR Znaa Tolentino MD LAB - URINE CHEMISTR Y ORDERABLES Performing Organization Address [facility] Co de Phone Number [facility] [address] [place] [phone] * SODIUM URINE RANDOM (05/14/2024 5:31 PM SENIOR RESIDENT CARE DIRECTOR) Sodium Urine <20 mmol/L 05/14/2024 5:54 PM SENIOR RESIDENT CARE DIRECTOR [facility] Urine URINE SPECIMEN OBTAINED BY CLEAN CATCH PROCEDURE / Unknown Collection / Unknown 05/14/2024 5:31 PM SENIOR RESIDENT CARE DIRECTOR 05/14/2024 5:36 PM SENIOR RESIDENT CARE DIRECTOR Zana Tolentino MD LAB - URINE CHEMISTR Y ORDERABLES Performing Organization Address [facility] de Phone Number [facility] [address] [place] [phone] * VANCOMYCIN LEVEL PEAK (05/14/2024 5:06 PM SENIOR RESIDENT CARE DIRECTOR) Vancomycin Peak 25.0 25.0 - 40.0 ug/mL 05/14/2024 5:51 PM SENIOR RESIDENT CARE DIRECTOR [facility] Blood BLOOD SPECIMEN / Unknown Lab Venipuncture / Unknown 05/14/2024 5:06 PM SENIOR RESIDENT CARE DIRECTOR 05/14/2024 5:35 PM SENIOR RESIDENT CARE DIRECTOR Hattie Liao MD LAB - CHEMISTRY MELIDA COLLINS Performing Organization Address [facility] Co de Phone Number [facility] [address] [place] [phone] * (ABNORMAL) GLUCOSE - POINT OF CARE (05/14/2024 4:50 PM SENIOR RESIDENT CARE DIRECTOR) Glucose WB/POC 234(H) 70 - 99 mg/dL 05/27/2024 7:26 PM SENIOR RESIDENT CARE DIRECTOR [facility] Specimen Type Arterial 05/27/2024 7:26 PM SENIOR RESIDENT CARE DIRECTOR [facility] Blood BLOOD SPECIMEN / Unknown 05/14/2024 4:50 PM SENIOR RESIDENT CARE DIRECTOR 05/27/2024 7:26 PM SENIOR RESIDENT CARE DIRECTOR Zana Tolentino MD LAB - POINT OF CARE ORDERABLES Performing Organization Address [facility] Co de Phone Number [facility] [address] [place] [phone] * US Retroperitoneal Complete (05/14/2024 2:17 PM SENIOR RESIDENT CARE DIRECTOR) Anatomical Region Laterality Modality Abdomen Ultrasound 05/14/2024 4:34 PM SENIOR RESIDENT CARE DIRECTOR Impressions 05/14/2024 4:35 PM SENIOR RESIDENT CARE DIRECTOR IMPRESSION: 1.Within normal limits. There is no evidence of hydronephrosis or medical renal disease. 2.The ureteral jets were not identified bilaterally during this study. > Interpreting Provider: Chintan Davey MD on 05/14/2024 4:35 PM Narrative 05/14/2024 4:35 PM SENIOR RESIDENT CARE DIRECTOR PROCEDURE: ??US RETROPERITONEAL COMPLETE DATE/TIME OF EXAM: [...] * EOSINOPHIL URINE SMEAR (05/14/2024 1:19 PM SENIOR RESIDENT CARE DIRECTOR) Eosinophils Urine NONE SEEN NONE SEEN 05/14/2024 2:59 PM SENIOR RESIDENT CARE DIRECTOR [facility] Urine URINE SPECIMEN OBTAINED BY CLEAN CATCH PROCEDURE / Unknown Collection / Unknown 05/14/2024 1:19 PM SENIOR RESIDENT CARE DIRECTOR 05/14/2024 1:32 PM SENIOR RESIDENT CARE DIRECTOR Zana Tolentino MD LAB - URINE CHEMISTR Y ORDERABLES Performing Organization Address City/State/[facility] Co de Phone Number [facility] [address] [place] [address] * (ABNORMAL) CULTURE WOUND+GRAM STAIN (05/14/2024 12:22 PM SENIOR RESIDENT CARE DIRECTOR) Culture Heavy Morganella morganii(A) JEFF 05/16/2024 6:46 PM SENIOR RESIDENT CARE DIRECTOR [facility] Culture Heavy Streptococcus agalactiae (Group B)(A) 05/16/2024 6:46 PM SENIOR RESIDENT CARE DIRECTOR [facility] MICROBIOLOGY Culture Heavy normal skin jero 05/16/2024 6:46 PM SENIOR RESIDENT CARE DIRECTOR [facility]CRO[facility] Gram Stain Rare Polymorphonuclear cells 05/16/2024 6:46 PM SENIOR RESIDENT CARE DIRECTOR [facility]CRO[facility] Gram Stain Heavy Gram-positive cocci 05/16/2024 6:46 PM SENIOR RESIDENT CARE DIRECTOR [facility]CROBI[facility]Y Gram Stain Light Gram-positive bacilli 05/16/2024 6:46 PM SENIOR RESIDENT CARE DIRECTOR [facility]CROBI[facility]Y Gram Stain Moderate Gram-negative bacilli 05/16/2024 6:46 PM SENIOR RESIDENT CARE DIRECTOR [facility]CROBIOLOGY Microbiology SPECIMEN FROM WOUND / Unknown Collection / Unknown 05/14/2024 12:22 PM SENIOR RESIDENT CARE DIRECTOR 05/14/2024 12:31 PM SENIOR RESIDENT CARE DIRECTOR Narrative [facility]CROBI[facility]Y - 05/16/2024 6:46 PM SENIOR RESIDENT CARE DIRECTOR Susceptibility testing of penicillin, other beta-lactam antibiotics, [...] - MICROBIOLOGY O EMILY Performing Organization Address City/[facility]/ZIP Co de Phone Number [facility]CROBI[facility] [address] [place] [address], [facility] [phone] * (ABNORMAL) GLUCOSE - POINT OF CARE (05/14/2024 11:33 AM SENIOR RESIDENT CARE DIRECTOR) Glucose WB/POC 253(H) 70 - 99 mg/dL 05/27/2024 7:26 PM SENIOR RESIDENT CARE DIRECTOR [facility] Specimen Type Arterial 05/27/2024 7:26 PM SENIOR RESIDENT CARE DIRECTOR [facility] Blood BLOOD SPECIMEN / Unknown 05/14/2024 11:33 AM SENIOR RESIDENT CARE DIRECTOR 05/27/2024 7:26 PM SENIOR RESIDENT CARE DIRECTOR Zana Tolentino MD LAB - POINT OF CARE ORDERABLES Performing Organization Address [facility] Co de Phone Number [facility] [address] [place] [address] * CULTURE BLOOD (05/14/2024 9:25 AM SENIOR RESIDENT CARE DIRECTOR) Culture No growth day 5 JEFF 05/19/2024 1:31 PM SENIOR RESIDENT CARE DIRECTOR [facility]CROBIOLOGY Blood PERIPHERAL BLOOD / Unknown Lab Venipuncture / Unknown 05/14/2024 9:25 AM SENIOR RESIDENT CARE DIRECTOR 05/14/2024 9:30 AM SENIOR RESIDENT CARE DIRECTOR Zana Tolentino MD LAB - MICROBIOLOGY O EMILY Performing Organization Address City/[facility] Co de Phone Number [facility]CROBIOLOGY [address] [place] [address], [facility] [phone] * CULTURE BLOOD (05/14/2024 9:16 AM SENIOR RESIDENT CARE DIRECTOR) Culture No growth day 5 JEFF 05/19/2024 1:31 PM SENIOR RESIDENT CARE DIRECTOR [facility]CROBIOLOGY Blood PERIPHERAL BLOOD / Unknown Lab Venipuncture / Unknown 05/14/2024 9:16 AM SENIOR RESIDENT CARE DIRECTOR 05/14/2024 9:30 AM SENIOR RESIDENT CARE DIRECTOR Zana Tolentino MD LAB - MICROBIOLOGY O RDERABLES [facility]CRO[facility] [address] [place], [place] [address] [phone] * FOLATE (05/14/2024 9:16 AM SENIOR RESIDENT CARE DIRECTOR) Folate 8.5 7.0 - 31.4 ng/mL 05/14/2024 10:27 AM SENIOR RESIDENT CARE DIRECTOR [facility] Blood BLOOD SPECIMEN / Unknown Lab Venipuncture / Unknown 05/14/2024 9:16 AM SENIOR RESIDENT CARE DIRECTOR 05/14/2024 9:30 AM SENIOR RESIDENT CARE DIRECTOR Zana Tolentino MD LAB - CHEMISTRY MELIDA COLLINS Performing Organization Address [facility] Co de Phone Number [facility] [address] [place] [phone] * (ABNORMAL) VITAMIN B12 (05/14/2024 9:16 AM SENIOR RESIDENT CARE DIRECTOR) Vitamin B12 >2,000(H) 213 - 816 pg/mL 05/14/2024 10:27 AM SENIOR RESIDENT CARE DIRECTOR [facility] Blood BLOOD SPECIMEN / Unknown Lab Venipuncture / Unknown 05/14/2024 9:16 AM SENIOR RESIDENT CARE DIRECTOR 05/14/2024 9:30 AM SENIOR RESIDENT CARE DIRECTOR Zana Tolentino MD LAB - CHEMISTRY MELIDA COLLINS Performing Organization Address [facility]/ZIP Co de Phone Number [facility] [address] [place] [address] * LACTIC ACID BLOOD (05/14/2024 9:16 AM SENIOR RESIDENT CARE DIRECTOR) Lactic Acid 1.0 <=2.0 mmol/L 05/14/2024 9:54 AM SENIOR RESIDENT CARE DIRECTOR [facility] Blood BLOOD SPECIMEN / Unknown Lab Venipuncture / Unknown 05/14/2024 9:16 AM SENIOR RESIDENT CARE DIRECTOR 05/14/2024 9:30 AM SENIOR RESIDENT CARE DIRECTOR Zana Tolentino MD LAB - CHEMISTRY MELIDA COLLINS Performing Organization Address [facility] Co de Phone Number [facility] [address] [place] [address] * (ABNORMAL) B-TYPE NATRIURETIC PEPTIDE (05/14/2024 9:16 AM SENIOR RESIDENT CARE DIRECTOR) BNP 140(H) <=100 pg/mL 05/14/2024 10:10 AM SENIOR RESIDENT CARE DIRECTOR [facility] Blood BLOOD SPECIMEN / Unknown Lab Venipuncture / Unknown 05/14/2024 9:16 AM SENIOR RESIDENT CARE DIRECTOR 05/14/2024 9:30 AM SENIOR RESIDENT CARE DIRECTOR Narrative [facility] - 05/14/2024 10:10 AM SENIOR RESIDENT CARE DIRECTOR A cutoff of 100 pg/mL has been [...] - CHEMISTRY MELIDA COLLINS Performing Organization Address [facility] Co de Phone Number [facility] [address] [place] [address] * (ABNORMAL) GLUCOSE - POINT OF CARE (05/14/2024 8:16 AM SENIOR RESIDENT CARE DIRECTOR) Glucose WB/POC 210(H) 70 - 99 mg/dL 05/27/2024 7:26 PM SENIOR RESIDENT CARE DIRECTOR [facility] Specimen Type Arterial 05/27/2024 7:26 PM SENIOR RESIDENT CARE DIRECTOR [facility] Blood BLOOD SPECIMEN / Unknown 05/14/2024 8:16 AM SENIOR RESIDENT CARE DIRECTOR 05/27/2024 7:26 PM SENIOR RESIDENT CARE DIRECTOR Zana Tolentino MD LAB - POINT OF CARE ORDERABLES Performing Organization Address [facility] Co de Phone Number [facility] [address] [place] [address] * VANCOMYCIN LEVEL RANDOM (05/14/2024 4:03 AM SENIOR RESIDENT CARE DIRECTOR) Pathologist [facility] Vancomycin Random 14.5 <=40.0 ug/mL 05/14/2024 9:34 AM SENIOR RESIDENT CARE DIRECTOR [facility] Blood BLOOD SPECIMEN / Unknown Lab Venipuncture / Unknown 05/14/2024 4:03 AM SENIOR RESIDENT CARE DIRECTOR 05/14/2024 4:13 AM SENIOR RESIDENT CARE DIRECTOR Narrative [facility] - 05/14/2024 9:34 AM SENIOR RESIDENT CARE DIRECTOR No reference range available for random Vancomycin levels. All results interpreted by ordering physician. Zana Tolentino MD LAB - CHEMISTRY MELIDA COLLINS Performing Organization Address [facility] Co de Phone Number [facility] [address] [place] [address] * CK BLOOD (05/14/2024 4:03 AM SENIOR RESIDENT CARE DIRECTOR) [facility] CK 136 30 - 200 U/L 05/14/2024 9:34 AM SENIOR RESIDENT CARE DIRECTOR [facility] Blood BLOOD SPECIMEN / Unknown Lab Venipuncture / Unknown 05/14/2024 4:03 AM SENIOR RESIDENT CARE DIRECTOR 05/14/2024 4:13 AM SENIOR RESIDENT CARE DIRECTOR Zana Tolentino MD LAB - CHEMISTRY MELIDA COLLINS Performing Organization Address [facility] Co de Phone Number [facility] [address] [place] [address] * (ABNORMAL) RETIC COUNT (05/14/2024 4:03 AM SENIOR RESIDENT CARE DIRECTOR) [facility] Reticulocyte Percent 1.38 0.50 - 2.40 % 05/14/2024 9:13 AM SENIOR RESIDENT CARE DIRECTOR [facility] Reticulocyte Absolute 0.0384 0.0200 - 0.1100 x10E6/uL 05/14/2024 9:13 AM [facility] Ret-HE 23.6(L) 29.0 - 37.9 pg 05/14/2024 9:13 AM [facility] Immature Reticulocyte Fraction 18.2(H) 1.8 - 15.2 % 05/14/2024 9:13 AM [facility] Blood BLOOD SPECIMEN / Unknown Lab Venipuncture / Unknown 05/14/2024 4:03 AM SENIOR RESIDENT CARE DIRECTOR 05/14/2024 4:13 AM SENIOR RESIDENT CARE DIRECTOR Zana Tolentino MD LAB - HEMATOLOGY ORD ERABLES [facility] [address] [place] [phone] * (ABNORMAL) FERRITIN (05/14/2024 4:03 AM SENIOR RESIDENT CARE DIRECTOR) Ferritin 1,357(H) 22 - 275 ng/mL 05/14/2024 10:16 AM [facility] Blood BLOOD SPECIMEN / Unknown Lab Venipuncture / Unknown 05/14/2024 4:03 AM SENIOR RESIDENT CARE DIRECTOR 05/14/2024 4:13 AM SENIOR RESIDENT CARE DIRECTOR Zana Tolentino MD LAB - CHEMISTRY ORDE RABLES [facility] [address] [place] [phone] * (ABNORMAL) IRON + TRANSFERRIN PANEL (05/14/2024 4:03 AM SENIOR RESIDENT CARE DIRECTOR) Iron 11(L) 50 - 175 ug/dL 05/14/2024 9:34 AM [facility] Transferrin 100(L) 174 - 382 mg/dL 05/14/2024 9:34 AM [facility] TIBC Calculated 125(L) 240 - 450 ug/dL 05/14/2024 9:34 AM [facility] Iron Saturation % 9(L) 20 - 50 % 05/14/2024 9:34 AM [facility] Blood BLOOD SPECIMEN / Unknown Lab Venipuncture / Unknown 05/14/2024 4:03 AM SENIOR RESIDENT CARE DIRECTOR 05/14/2024 4:13 AM SENIOR RESIDENT CARE DIRECTOR Zana Tolentino MD LAB - CHEMISTRY MELIDA COLLINS Performing Organization Address [facility] Co de Phone Number [facility] [address] [place] [phone] * (ABNORMAL) DIFFERENTIAL MANUAL (05/14/2024 4:03 AM SENIOR RESIDENT CARE DIRECTOR) Neutrophil % 89(H) 41 - 74 % 05/14/2024 4:47 AM [facility] Lymphocyte % 8(L) 17 - 47 % 05/14/2024 4:47 AM [facility] Monocyte % 3 3 - 11 % 05/14/2024 4:47 AM [facility] Neutrophil Absolute 19.40(H) 1.60 - 7.50 x10E9/L 05/14/2024 4:47 AM [facility] Lymphocyte Absolute 1.74 1.00 - 4.40 x10E9/L 05/14/2024 4:47 AM [facility] Monocyte Absolute 0.65 0.15 - 1.00 x10E9/L 05/14/2024 4:47 AM [facility] RBC Morphology REVIEWED 05/14/2024 4:47 AM [facility] Goodwin Cells MODERATE(A) (none) 05/14/2024 4:47 AM [facility] Blood BLOOD SPECIMEN / Unknown Lab Venipuncture / Unknown 05/14/2024 4:03 AM SENIOR RESIDENT CARE DIRECTOR 05/14/2024 4:13 AM SENIOR RESIDENT CARE DIRECTOR Nicanor Richter MD LAB - HEMATOLOGY ORDERABLES Performing Organization Address [facility]/ZIP Co de Phone Number [facility] [address] [place], [place] [phone] * (ABNORMAL) RENAL FUNCTION PANEL (05/14/2024 4:03 AM SENIOR RESIDENT CARE DIRECTOR) Glucose 185(H) 70 - 99 mg/dL 05/14/2024 4:46 AM [facility] Sodium 133(L) 136 - 145 mmol/L 05/14/2024 4:46 AM [facility] Potassium 4.1 3.5 - 5.1 mmol/L 05/14/2024 4:46 AM [facility] Chloride 106 98 - 107 mmol/L 05/14/2024 4:46 AM [facility] CO2 20(L) 22 - 29 mmol/L 05/14/2024 4:46 AM [facility] Calcium 8.2(L) 8.4 - 10.4 mg/dL 05/14/2024 4:46 AM [facility] Anion Gap 7 6 - 16 mmol/L 05/14/2024 4:46 AM [facility] BUN 28(H) 5.3 - 18.7 mg/dL 05/14/2024 4:46 AM [facility] Creatinine 1.38(H) 0.72 - 1.25 mg/dL 05/14/2024 4:46 AM [facility] Albumin 1.6(L) 3.4 - 5.0 gm/dL 05/14/2024 4:46 AM [facility] Phosphorus 4.1 2.5 - 4.5 mg/dL 05/14/2024 4:46 AM [facility] eGFR by CKD-EPI 65(L) >=90 mL/min/1.7 3 m2 05/14/2024 4:46 AM [facility] Blood BLOOD SPECIMEN / Unknown Lab Venipuncture / Unknown 05/14/2024 4:03 AM SENIOR RESIDENT CARE DIRECTOR 05/14/2024 4:13 AM [facility] Nicanor Richter MD LAB - CHEMISTRY ORDERABLES [facility] [address] [place], [place] [phone] * (ABNORMAL) CBC W AUTO DIFFERENTIAL (05/14/2024 4:03 AM [facility]) WBC 21.8(H) 4.0 - 10.7 x10E9/L 05/14/2024 4:47 AM [facility] RBC Count 2.75(L) 4.30 - 5.80 x10E12/L 05/14/2024 4:47 AM [facility] Hemoglobin 7.7(L) 13.3 - 17.5 g/dL 05/14/2024 4:47 AM [facility] Hematocrit 25.1(L) 38.7 - 51.1 % 05/14/2024 4:47 AM [facility] MCV 91.3 80.0 - 98.0 fL 05/14/2024 4:47 AM [facility] MCH 28.0 26.7 - 33.6 pg 05/14/2024 4:47 AM [facility] MCHC 30.7(L) 31.7 - 36.3 g/dL 05/14/2024 4:47 AM [facility] RDW-CV 13.6 11.3 - 14.8 % 05/14/2024 4:47 AM [facility] Platelet Count 298 150 - 420 x10E9/L 05/14/2024 4:47 AM [facility] MPV 8.8 7.8 - 11.4 fL 05/14/2024 4:47 AM [facility] Blood BLOOD SPECIMEN / Unknown Lab Venipuncture / Unknown 05/14/2024 4:03 AM SENIOR RESIDENT CARE DIRECTOR 05/14/2024 4:13 AM SENIOR RESIDENT CARE DIRECTOR Nicanor Richter MD LAB - HEMATOLOGY ORDERABLES [facility] [address] [place] [phone] * (ABNORMAL) GLUCOSE - POINT OF CARE (05/13/2024 11:10 PM SENIOR RESIDENT CARE DIRECTOR) Glucose WB/POC 222(H) 70 - 99 mg/dL 05/14/2024 7:27 AM [facility] Specimen Type Cap Fingerstick 2023 7:27 AM [facility] Blood BLOOD SPECIMEN / Unknown 05/13/2024 11:10 PM SENIOR RESIDENT CARE DIRECTOR 05/14/2024 7:27 AM SENIOR RESIDENT CARE DIRECTOR Nicanor Richter MD LAB - POINT OF CARE ORDERABLES [facility] [address] [place] [phone] * (ABNORMAL) CBC W AUTO DIFFERENTIAL (05/13/2024 6:30 PM [facility]) WBC 22.3(H) 4.0 - 10.7 x10E9/L 05/13/2024 7:09 PM [facility] RBC Count 2.90(L) 4.30 - 5.80 x10E12/L 05/13/2024 7:09 PM [facility] Hemoglobin 8.2(L) 13.3 - 17.5 g/dL 05/13/2024 7:09 PM [facility] Hematocrit 25.6(L) 38.7 - 51.1 % 05/13/2024 7:09 PM [facility] MCV 88.3 80.0 - 98.0 fL 05/13/2024 7:09 PM [facility] MCH 28.3 26.7 - 33.6 pg 05/13/2024 7:09 PM [facility] MCHC 32.0 31.7 - 36.3 g/dL 05/13/2024 7:09 PM [facility] RDW-CV 13.4 11.3 - 14.8 % 05/13/2024 7:09 PM [facility] Platelet Count 318 150 - 420 x10E9/L 05/13/2024 7:09 PM [facility] MPV 8.9 7.8 - 11.4 fL 05/13/2024 7:09 PM [facility] Neutrophil % 80.9(H) 41.0 - 74.0 % 05/13/2024 7:09 PM [facility] Lymphocyte % 8.7(L) 17.0 - 47.0 % 05/13/2024 7:09 PM [facility] Monocyte % 7.6 3.0 - 11.0 % 05/13/2024 7:09 PM [facility] Eosinophil % 0.4 0.0 - 7.0 % 05/13/2024 7:09 PM [facility] Basophil % 0.4 0.0 - 1.6 % 05/13/2024 7:09 PM [facility] Immature Granulocytes % 2.0(H) 0.0 - 1.0 % 05/13/2024 7:09 PM [facility] Neutrophil Absolute 18.03(H) 1.60 - 7.50 x10E9/L 05/13/2024 7:09 PM [facility] Lymphocyte Absolute 1.94 1.00 - 4.40 x10E9/L 05/13/2024 7:09 PM [facility] Monocyte Absolute 1.70(H) 0.15 - 1.00 x10E9/L 05/13/2024 7:09 PM [facility] Eosinophil Absolute 0.10 0.00 - 0.60 x10E9/L 05/13/2024 7:09 PM [facility] Basophil Absolute 0.08 0.00 - 0.13 x10E9/L 05/13/2024 7:09 PM [facility] Blood BLOOD SPECIMEN / Unknown Lab Venipuncture / Unknown 05/13/2024 6:30 PM SENIOR RESIDENT CARE DIRECTOR 05/13/2024 6:39 PM SENIOR RESIDENT CARE DIRECTOR Nicanor Richter MD LAB - HEMATOLOGY ORDERABLES Performing Organization Address City/State/[facility] Co de Phone Number [facility] [address] [place] [phone] * (ABNORMAL) BASIC METABOLIC PANEL (CALCIUM TOTAL) (05/13/2024 6:30 PM SENIOR RESIDENT CARE DIRECTOR) Glucose 186(H) 70 - 99 mg/dL 05/13/2024 6:55 PM [facility] Sodium 133(L) 136 - 145 mmol/L 05/13/2024 6:55 PM [facility] Potassium 3.8 3.5 - 5.1 mmol/L 05/13/2024 6:55 PM [facility] Chloride 105 98 - 107 mmol/L 05/13/2024 6:55 PM [facility] CO2 19(L) 22 - 29 mmol/L 05/13/2024 6:55 PM [facility] Calcium 8.3(L) 8.4 - 10.4 mg/dL 05/13/2024 6:55 PM [facility] Anion Gap 9 6 - 16 mmol/L 05/13/2024 6:55 PM [facility] BUN 30(H) 5.3 - 18.7 mg/dL 05/13/2024 6:55 PM SENIOR RESIDENT CARE DIRECTOR [facility] Creatinine 1.32(H) 0.72 - 1.25 mg/dL 05/13/2024 6:55 PM SENIOR RESIDENT CARE DIRECTOR [facility] eGFR by CKD-EPI 68(L) >=90 mL/min/1.7 3 m2 05/13/2024 6:55 PM SENIOR RESIDENT CARE DIRECTOR [facility] Blood BLOOD SPECIMEN / Unknown Lab Venipuncture / Unknown 05/13/2024 6:30 PM SENIOR RESIDENT CARE DIRECTOR 05/13/2024 6:39 PM SENIOR RESIDENT CARE DIRECTOR Nicanor Richter MD LAB - CHEMISTRY ORDERABLES [facility] [address] [place] [address] documented in this encounter Visit Diagnoses Not on filedocumented in this encounter Administered Medications Inactive Administered Medications - up to 3 most recent administrations Medication Order MAR Action Action Date Dose Rate Site 0.9% NaCl flush bag at 20 mL/hr, 250 mL, CONTINUOUS PRN, Starting on Thu05/13/24 at 2220, Until Thu05/26/24 at 1405, FLUSH BAG, Use for: IVPB flush $ New Bag/Syringe 05/20/2024 9:21 PM SENIOR RESIDENT CARE DIRECTOR 250 mL 20 mL/hr $ New Bag/Syringe 05/19/2024 8:06 PM SENIOR RESIDENT CARE DIRECTOR 250 mL 20 mL/ hr $ New Bag/Syringe 05/18/2024 8:09 PM SENIOR RESIDENT CARE DIRECTOR 250 mL 20 mL/ hr 0.9% NaCl injection 10-40 mL 10-40 mL, Intracatheter, EVERY 8 HOURS, First dose on Thu05/24/24 at 1400, Until Discontinued, Flush each lumen of PICC with 10ml NS IVP every 8 hours (regardless of continuous IV infusion). Flushing may be contraindicated if concentrated drips are infusing. $ Given 05/26/2024 5:45 AM SENIOR RESIDENT CARE DIRECTOR 10 mL $ Given 05/25/2024 8:57 PM SENIOR RESIDENT CARE DIRECTOR 10 mL $ Given 05/25/2024 12:46 PM SENIOR RESIDENT CARE DIRECTOR 10 mL 0.9% NaCl injection 10-40 mL [...] blood draw. $ Given 05/24/2024 10:41 PM SENIOR RESIDENT CARE DIRECTOR 10 mL acetaminophen (Tylenol) tablet 650 mg [...] intake $ Given 05/21/2024 8:13 P M SENIOR RESIDENT CARE DIRECTOR 650 mg artificial tears ophthalmic ointment Each Eye, EVERY 8 HOURS, First dose on 05/21/24 at 0000, Until Discontinued, Place a small strip of ointment into the eye. Wait at least 5 minutes before administering other ophthalmic medications. $ Given 05/21/2024 8:10 PM SENIOR RESIDENT CARE DIRECTOR atorvastatin (Lipitor) tablet 40 mg 40 mg, Oral, AT BEDTIME, First dose on Thu05/13/24 at 2115, Until Discontinued $ Given 05/25/2024 8:56 PM SENIOR RESIDENT CARE DIRECTOR 40 mg $ Given 05/24/2024 8:09 PM SENIOR RESIDENT CARE DIRECTOR 40 mg $ Given 05/23/2024 8:06 PM SENIOR RESIDENT CARE DIRECTOR 40 mg benzonatate (Tessalon) capsule 100 mg 100 mg, Oral, 3 TIMES DAILY PRN, Cough, Starting on Tu05/17/24 at 1335, Until Inna 05/26/24 at 1405 $ Given 05/25/2024 6:41 PM SENIOR RESIDENT CARE DIRECTOR 100 mg $ Given 05/19/2024 12:50 AM SENIOR RESIDENT CARE DIRECTOR 100 mg $ Given 05/18/2024 9:24 AM SENIOR RESIDENT CARE DIRECTOR 100 mg BUPivacaine PF (Marcaine PF) 0.5 % injection PRN, Starting on 05/15/24 at 1643, Until 05/15/24 at 1701, Intra-op $ Given 05/15/2024 4:43 PM SENIOR RESIDENT CARE DIRECTOR 20 mL Ope rative Site buPROPion XL 24hr (Wellbutrin-XL) tablet 150 mg 150 mg, Oral, DAILY, First dose on Thu05/14/24 at 0900, Until Discontinued, Do not crush, chew, or cut in half. $ Given 05/26/2024 8:21 AM SENIOR RESIDENT CARE DIRECTOR 150 mg $ Given 05/25/2024 8:38 AM SENIOR RESIDENT CARE DIRECTOR 150 mg $ Given 05/24/2024 8:13 AM SENIOR RESIDENT CARE DIRECTOR 150 mg cefTRIAXone (Rocephin) 2,000 mg in [...] Bone/Joint $ New Bag/Syringe 05/25/2024 5:02 PM SENIOR RESIDENT CARE DIRECTOR 2,000 mg 100 mL/hr $ New Bag/Syringe 05/24/2024 8:19 PM SENIOR RESIDENT CARE DIRECTOR 2,000 mg 100 mL /hr chlorhexidine (Peridex) 0.12 % oral solution 15 mL 15 mL, Mouth/Throat, 2 TIMES DAILY, First dose on 05/21/24 at 0000, Until Discontinued, Swab oral mucosa for 30 seconds. Do not brush teeth immediately after use. . WASTE DISPOSAL INSTRUCTIONS: Black Bin Disposal required. $ Given 05/26/2024 8:22 AM SENIOR RESIDENT CARE DIRECTOR 15 mL $ Given 05/25/2024 8:55 PM SENIOR RESIDENT CARE DIRECTOR 15 mL $ Given 05/25/2024 8:37 AM SENIOR RESIDENT CARE DIRECTOR 15 mL cyclobenzaprine (Flexeril) tablet 5 mg 5 mg, Oral, 3 TIMES DAILY PRN, Muscle Spasms, Starting on 05/16/24 at 1306, Until Inna 05/26/24 at 1405 $ Given 05/16/2024 2:22 PM SENIOR RESIDENT CARE DIRECTOR 5 mg dextrose 10 % IV bolus [...] other medications. $ Given 05/25/2024 1:10 PM SENIOR RESIDENT CARE DIRECTOR 325 mg $ Given 05/24/2024 12:42 PM SENIOR RESIDENT CARE DIRECTOR 325 mg $ Given 05/23/2024 12:23 PM SENIOR RESIDENT CARE DIRECTOR 325 mg gabapentin (Neurontin) capsule 300 mg 300 mg, Oral, 3 TIMES DAILY, First dose on Thu05/13/24 at 2115, Until Discontinued $ Given 05/26/2024 8:21 AM SENIOR RESIDENT CARE DIRECTOR 300 mg $ Given 05/25/2024 8:55 PM SENIOR RESIDENT CARE DIRECTOR 300 mg $ Given 05/25/2024 1:10 PM SENIOR RESIDENT CARE DIRECTOR 300 mg glucagon (Glucagen) injection 1 mg [...] Until Discontinued $ Given 05/26/2024 5:44 AM SENIOR RESIDENT CARE DIRECTOR 7,500 Units Abdominal Tissue $ Given 05/25/2024 8:55 PM SENIOR RESIDENT CARE DIRECTOR 7,500 Units A bdominal Tissue $ Given 05/25/2024 1:10 PM SENIOR RESIDENT CARE DIRECTOR 7,500 Units A bd Left Lower Quadrant HYDROcodone-acetaminophen (Porum) 5-325 MG tablet 1 tablet 1 tablet, Oral, EVERY 4 HOURS PRN, Moderate Pain, Severe Pain, Starting on Tu05/17/24 at 1456, Until Inna 05/26/24 at 1405, [...] oral intake $ Given 05/24/2024 11:14 PM SENIOR RESIDENT CARE DIRECTOR 1 tablet $ Given 05/22/2024 12:46 AM SENIOR RESIDENT CARE DIRECTOR 1 tablet insulin aspart (NovoLOG) pen 0-4 [...] notify physician $ Given 05/22/2024 9:24 PM SENIOR RESIDENT CARE DIRECTOR 1 Units Abdominal Tissue $ Given 05/18/2024 7:59 PM SENIOR RESIDENT CARE DIRECTOR 2 Units Ab dominal Tissue $ Given 05/17/2024 11:12 PM SENIOR RESIDENT CARE DIRECTOR 2 Units A bdominal Tissue insulin aspart [...] same time. $ Given 05/21/2024 8:13 AM SENIOR RESIDENT CARE DIRECTOR 2 Units Abd Right Lower Quadrant $ Given 05/18/2024 5:10 PM SENIOR RESIDENT CARE DIRECTOR 3 Units Le ft Arm $ Given 05/18/2024 12:11 PM SENIOR RESIDENT CARE DIRECTOR 2 Units L eft Arm insulin aspart (NovoLOG) pen 15 Units 15 Units, Subcutaneous, 3 TIMES DAILY WITH MEALS, First dose (after last modification) on Thu05/18/24 at 1200, Until Discontinued, Hold MEALTIME insulin if patient is NPO or eating less than 50% of meal -OR- If carb intake for the meal is less than 30 grams. $ Given 05/26/2024 8:22 AM SENIOR RESIDENT CARE DIRECTOR 15 Units Left Arm $ Given 05/25/2024 5:30 PM SENIOR RESIDENT CARE DIRECTOR 15 Units Le ft Arm $ Given 05/25/2024 12:30 PM SENIOR RESIDENT CARE DIRECTOR 15 Units L eft Arm insulin glargine (Lantus) pen 24 Units 24 Units, Subcutaneous, AT BEDTIME, First dose (after last modification) on Thu05/17/24 at 2100, Until Discontinued, Obtain a current Blood Glucose if necessary. . WASTE DISPOSAL INSTRUCTIONS: Black Bin Disposal required. $ Given 05/25/2024 9:02 PM SENIOR RESIDENT CARE DIRECTOR 24 Units Abdominal Tissue $ Given 05/24/2024 8:19 PM SENIOR RESIDENT CARE DIRECTOR 24 Units Ab dominal Tissue $ Given 05/23/2024 8:10 PM SENIOR RESIDENT CARE DIRECTOR 24 Units Ab dominal Tissue lidocaine PF (Xylocaine MPF) 1 % injection PRN, Starting on 05/15/24 at 1644, Until 05/15/24 at 1701, Intra-op $ Given 05/15/2024 4:44 PM SENIOR RESIDENT CARE DIRECTOR 20 mL Ope rative Site metroNIDAZOLE (Flagyl) tablet 500 mg 500 mg, Oral, EVERY 8 HOURS, First dose on 05/14/24 at 0930, Until Discontinued, May take with food or milk., Indication for anti-infective therapy: Documented infection, Site of anti-infective therapy: Skin/soft tissue, Wound $ Given 05/26/2024 5:44 AM SENIOR RESIDENT CARE DIRECTOR 500 mg $ Given 05/25/2024 9:04 PM SENIOR RESIDENT CARE DIRECTOR 500 mg $ Given 05/25/2024 1:10 PM SENIOR RESIDENT CARE DIRECTOR 500 mg ondansetron (Zofran) injection 4 mg 4 mg, Intravenous, EVERY 6 HOURS PRN, Nausea/Vomiting, Starting on 05/16/24 at 1916, Until Inna 05/26/24 at 1405, Administer over 2 to 5 minutes. pantoprazole EC (Protonix) tablet 40 mg 40 mg, Oral, DAILY, First dose on 05/14/24 at 0900, Until Discontinued, Do not crush, chew, or cut in half. $ Given 05/26/2024 8:21 AM SENIOR RESIDENT CARE DIRECTOR 40 mg $ Given 05/25/2024 8:38 AM SENIOR RESIDENT CARE DIRECTOR 40 mg $ Given 05/24/2024 8:13 AM SENIOR RESIDENT CARE DIRECTOR 40 mg polyethylene glycol 3350 (Miralax) packet [...] of granules. $ Given 05/26/2024 8:21 AM SENIOR RESIDENT CARE DIRECTOR 0.4 mg $ Given 05/25/2024 8:38 AM SENIOR RESIDENT CARE DIRECTOR 0.4 mg $ Given 05/24/2024 8:13 AM SENIOR RESIDENT CARE DIRECTOR 0.4 mg thrombin (Thrombogen; Thrombostat) kit PRN, Starting on 05/15/24 at 1643, Until 05/15/24 at 1701, Intra-op $ Given 05/15/2024 4:58 PM SENIOR RESIDENT CARE DIRECTOR 20,000 Units Operative Site $ Given 05/15/2024 4:43 PM SENIOR RESIDENT CARE DIRECTOR 20,000 Units Operative Site documented in this encounter Active and Recently Administered Medications Times are shown in SENIOR RESIDENT CARE DIRECTOR. Scheduled Medication Order 05/24/2024 05/25/2024 05/26/2024 0.9% NaCl injection 10-40 mL 10-40 mL, Intracatheter, EVERY 8 HOURS, First dose on Thu05/24/24 at 1400, Until Discontinued, Flush each lumen of PICC with 10ml NS IVP every 8 hours (regardless of continuous IV infusion). Flushing may be contraindicated if concentrated drips are infusing. 1242 ($ Given - Provider: Rio Schmitz RN)2017 ($ Given - Provider: Kang Sanders, RAYAN) 0531 ($ Given - Provider: Kang Sanders RN)124 ($ Given - Provider: Rio Schmitz RN)2056 [...] irrigate the catheter with 0.9% Sodium Chloride, FDC. 1908 ($ Given - Provider: Rio Schmitz [...] - Provider: Rio Schmitz RN - Reason: Refused-Patient)2241 (Not Administered - Provider: Kang Sanders RN - Reason: Refused-Patient) 0531 (Not Administered - Provider: Kang Sanders RN - Reason: Refused-Patient)124 (Not Administered - Provider: Rio Schmitz RN [...] RN)2048 (Stopped - Provider: Kang Sanders RN) 1702 ($ New Bag/Syringe - Provider: Rio Schmitz [...] 08 ($ Given - Provider: Rio Schmitz RN)1414 ($ Given - Provider: Rio Schmitz, RN)2008 ($ Given - Provider: Kang Sanders RN) 0838 ($ Given - Provider: Rio Schmitz RN)1310 ($ Given - Provider: Rio Schmitz RN)2054 ($ Given - Provider: Kang Sanders, ARYAN) 0821 ($ Given - Provider: Rio Schmitz, RN) heparin injection 7,500 Units 7,500 Units, Subcutaneous, EVERY 8 HOURS, First dose on Thu05/21/24 at 0915, Until Discontinued 05 ($ Given - Provider: Maggie Mojica RN)1414 ($ Given - Provider: Rio Schmitz RN)2007 ($ Given - Provider: Kang Sanders, ARYAN) 0530 ($ Given - Provider: Kang Sanders RN)131 ($ Given - Provider: Rio Schmitz RN)2055 ($ Given - Provider: Kang Sanders RN) 0544 ($ Given - Provider: aKng Sanders RN) heparin lock flush injection 250 [...] RN - Reason: See Comments - Comment: [email or web address]) insulin aspart (NovoLOG) pen 0-6 Units 0-6 [...] Schmitz RN)1230 ($ Given - Provider: Rio Schmitz, RN)1730 ($ Given - Provider: Rio Schmitz RN) 0822 ($ Given - Provider: Rio Schmitz RN)1200 (Due) insulin glargine (Lantus) pen 24 Units 24 Units, Subcutaneous, AT BEDTIME, First dose (after last modification) on Thu05/17/24 at 2100, Until Discontinued, Obtain a current Blood Glucose if necessary. . WASTE DISPOSAL INSTRUCTIONS: Black Bin Disposal required. 2018 ($ Given - Provider: Kang Sanders, ARYAN) 2101 ($ Given - Provider: Kang Sanders, ARYAN) lidocaine PF (Xylocaine MPF) 1 % injection [...] Site of anti-infective therapy: Skin/soft tissue, Wound 0529 ($ Given - Provider: Maggie Mojica RN)1414 ($ Given - Provider: Rio Schmitz RN)2008 ($ Given - Provider: Kang Sanders, ARYAN) 0530 ($ Given - Provider: Kang Sanders [...] draw. 2241 ($ Given - Provider: Kang Sanders, ARYAN) acetaminophen (Tylenol) tablet 650 mg 650 mg, [...] Access, Starting on Thu05/13/24 at 2050, Until Thu05/26/24 at 1405, If NOT able [...] Access, Starting on Thu05/13/24 at 2050, Until Thu05/26/24 at 1405, If NOT able [...] mg/dL, Starting on Thu05/13/24 at 2050, Until Thu05/26/24 at 1405, If able to take oral [...] choices) NOTIFY PROVIDER OF HYPOGLYCEMIC EVENT. HYDROcodone-acetaminophen (Porum) 5-325 MG tablet 1 tablet 1 tablet, Oral, EVERY 4 HOURS PRN, Moderate Pain, Severe Pain, Starting on Thu05/17/24 at 1456, Until Nina 05/26/24 at 1405, Patient preference for lesser [...] Nausea/Vomiting, Starting on Thu05/16/24 at 1916, Until Inna 05/26/24 at 1405, [...] portion documented in this encounter Care Teams Broom Builder Relationship Specialty Start Date End Date Nguyễn Bingham MD [address] [place] [id number] PCP - General Family Medicine 07/03/23 documented as of this encounter
--- OUTSIDE RECORDS SUMMARY | 2024-06-08 00:01 | XMS_ITS | Encounter Summary ---
Author Organization [facility] Health Address [address] [place] [address] Care Team Providers Care Transit Mixer Driver Name Role Phone Nguyễn Bingham MD Primary Care Provider [phone] Encounter Details Date Type Department Care Team (Latest Contact Info) Description 02/03/2024 Travel Social History Tobacco Use Types Packs/Day Years Used Date Smoking Tobacco: Never Smokeless Tobacco: Never Alcohol Use Standard Drinks/Week Comments Never 0 (1 standard drink = 0.6 oz pur e alcohol) PHQ-2 Answer Date Recorded Patient Health Questionnaire-2 Score 1 10/01/2023 Sex and Gender Information Value Date Recorded Sex Assigned at Not on file Gender Identity Not on file Sexual Orientation Not on file documented as of this encounter Plan of Treatment Not on file documented as of this encounter Visit Diagnoses Not on filedocumented in this encounter Care Teams Transit Mixer Driver Relationship Specialty Start Date End Date Nguyễn Bingham MD [address] [facility] [address] [place] [address] PCP - General Family Medicine 07/03/23 documented as of this encounter
--- OUTSIDE RECORDS SUMMARY | 2024-06-08 00:02 | XMS_ITS | Encounter Summary ---
Author Organization [facility] Health Address [address] [place] [address] Care Team Providers Care Clinical Resource Director Name Role Phone Nguyễn Bingham MD Primary Care Provider [phone] Encounter Details Date Type Department Care Team (Latest Contact Info) Description 07/27/2023 Travel Social History Tobacco Use Types Packs/Day Years Used Date Smoking Tobacco: Never Smokeless Tobacco: Never Alcohol Use Standard Drinks/Week Comments Never 0 (1 standard drink = 0.6 oz pur e alcohol) Sex and Gender Information Value Date Recorded Sex Assigned at Not on file Gender Identity Not on file Sexual Orientation Not on file documented as of this encounter Plan of Treatment Not on file documented as of this encounter Visit Diagnoses Not on filedocumented in this encounter Care Teams Clinical Resource Director Relationship Specialty Start Date End Date Nguyễn Bingham MD [address] [facility] [address] [place] [address] PCP - General Family Medicine 07/03/23 documented as of this encounter
--- OUTSIDE RECORDS SUMMARY | 2024-06-08 00:02 | XMS_ITS | Encounter Summary ---
Author Organization [facility] Health Address [address] [place] [address] Care Team Providers Care High School Counselor Name Role Phone Nguyễn Bingham MD Primary Care Provider [phone] Reason for Visit * Reason Comments Establish Care 2month f/u Encounter Details Date Type Department Care Team (Latest Contact Info) Description 09/17/2023 11:00 AM CDT Office Visit [facility] - Neurology [address] [facility] [place] [address] Ferny Carreon MD [address] [place] [address] 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) Social History Tobacco Use Types Packs/Day Years Used Date Smoking Tobacco: Never Smokeless Tobacco: Never Tobacco Cessation:Counseling Given: Not Answered Alcohol Use Standard Drinks/Week Comments Never 0 [...] Sign Reading Time Taken Comments Blood Pressure 126/81 09/17/2023 10:59 AM CDT Pulse 98 09/17/2023 10:59 AM CDT Temperature 35.7 ??C (96.3 ??F) 09/17/2023 10:59 AM C DT Respiratory Rate - - Oxygen Saturation 97% 09/17/2023 10:59 AM CDT Inhaled Oxygen Concentration - - Weight 157.4 kg (347 lb) 09/17/2023 10:59 AM CDT Height - - Body Mass Index 42.24 07/30/2023 1:52 PM SUBSTATION MANAGER documented in this encounter Patient Instructions * Patient Instructions* Ferny Carreon MD - 09/17/2023 11:25 AM CDT Please help patient with scheduling process of PT/OT patient has not heard from them. Orders are inthe chart. He needs to start therapy. I recommend he to call them now while in the outpatient area Blood work,has been ordered and patient will go for it. Today: workup for peripheral polyneuropathyworkup Blood draw for reversible causes of peripheral polyneuropathy including CBC, CMP, Ca, Mg, Phos, Hgb A1C, also TSH, Vitamin B1, Vitamin B6, Vitamin B12, MMA, Vitamin E, Folic Acid, Copper, Zinc, ELOISA, ESR, CRP, RF, SPEP w IFIX, p-ANCA, c-ANCA, SSA IgG, SSB IgG, DEBBI; HIV, FTA- Hepatitis C IgG, Cryoglobulin; CPK; Lyme's disease ab, TSH, will repeat A1c F/up in [facility] in 2 months or sooner if needed documented in this encounter Progress Notes * Ferny Carreon MD - 09/17/2023 10:53 AM CDT NEUROLOGY OUTPATIENT PROGRESS NOTE Date: 09/17/2023 Chief Complaint: follow up Rene Hyatt is a very pleasant 43 year old yo right handed male who is seen in return consultation for numbness. His PMH is notable for DM type 1 (diagnosed in 03/30 on Insulin, Hb A1c was 13.3),HTN, Anemia,hypercholesterolemia, intermittent full body tremors, WEST, diabetic foot ulcer,Vitamin deficiency, who was referred for evaluation of numbness. Patient was last seen by me on 07/30/23. Patient came aloneand provided the interim history. I also reviewed EMR. Briefly, patient presented with 1) Numbness and tingling in the feet noticed 1 decade ago, and in the fingers and hands about 5 years ago. These have progressed insidiosly from distal to proximal to the point that he feels now persistently numb from the toes up to the knees and from the fingertips up to the wrists. In addition he endorses 2) a tooth ache-like pain from the right elbow down to thewrist along the left side of the right forearm developed persistent numdness sensation that has ascended. 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 He has not been able to complete studies/tests as some of them are upcoming including EMG/NCT on 10/12/2023. undergo all tests. The patient has pending blood work for neuropathy. He tells me he has not been contacted by the rehab team for the initiation of physical and occupational therapy. Regarding his diabetes management, the patient reports that his fasting blood sugar levels are currently maintained between 120 and 140. He avoids using insulin for blood sugar levels below 200 due to adverse reactions. The most recent Hemoglobin A1C level was recorded at 7.7 on 07/02/2023. Additionally, an iron infusion is scheduled to address his needs. The patient also discusses concerns about low testosterone levels. Patient's lifestyle is described as sedentary, with a significant amount of time spent at home caring for his mother. Dietary habits are noted to consist mainly of salads, cheese, and eggs, with minimal meat intake. ROS: Constitutional: No fever, no fatigue; Eye: No recent visual problem; ear/nose/mouth/throat: No decreased hearing; respiratory: No shortness of breath, no cough; cardiovascular: No chest pain; gastrointestinal: No vomiting, no diarrhea, no constipation; genitourinary: No urinary incontinence; musculo skeletal: No joint pain, no back pain, no neck pain; psychiatric: No moodiness, no depression. Interval past medical, past surgical, social, and family histories were reviewed with the patient and are unchanged from prior visits. ALLERGIES: No Known Allergies Current Outpatient Medications: Current Outpatient Medications Medication Sig ??? acetaminophen (Tylenol) 500 MG tablet Take 1 (one) tablet by mouth every 6 hours as needed ??? Alcohol Swabs (Alcohol Prep) PADS ??? npvgnqo-rpoqmpfopunoy-aflgyobm 250-250-65 MG tablet Take 1 (one) tablet by mouth once daily as needed (Patient not taking: Reported on 10/08/2023) ??? atorvastatin (Lipitor) 20 MG tablet Take 1 (one) tablet by mouth once daily ??? atorvastatin (Lipitor) 20 MG tablet (Patient not taking: Reported on 10/08/2023) ??? Baqsimi One Pack 3 MG/DOSE POWD (Patient not taking: Reported on 10/08/2023) ??? buPROPion XL 24hr (Wellbutrin-XL) 150 MG tablet Take 1 (one) tablet by mouth once daily (Patient not taking: Reported on 10/08/2023) ??? calcium carbonate (Os-Wilfredo 500) 1250 (500 Ca) MG tablet Take 1 (one) tablet by mouth once daily ??? cephalexin (Keflex) 500 MG capsule (Patient not taking: Reported on 10/08/2023) ??? cyanocobalamin (Vitamin B-12) injection (Patient not taking: Reported on 10/08/2023) ??? doxycycline hyclate (Vibramycin) 100 MG capsule (Patient not taking: Reported on 10/08/2023) ??? famotidine (Pepcid) 40 MG tablet Take 1 (one) tablet by mouth at bedtime ??? ferrous sulfate 325 (65 FE) MG tablet ??? fluconazole (Diflucan) 200 MG tablet (Patient not taking: Reported on 10/08/2023) ??? fluconazole (Diflucan) 200 MG tablet ??? furosemide (Lasix) 20 MG tablet ??? gabapentin (Neurontin) 100 MG capsule Take 1 (one) capsule by mouth 3 times daily ??? GaviLyte-N with Flavor Pack 420 g solution (Patient not taking: Reported on 10/08/2023) ??? GoodSense ClearLax 17 GM/SCOOP powder (Patient not taking: Reported on 10/08/2023) ??? insulin lispro (HumaLOG;ADMelog) 100 UNIT/ML pen Inject 10 (ten) Units subcutaneously 3 times daily before meals ??? Lancets (ONETOUCH DELICA PLUS 33G EXTRA FINE LANCET) ??? Lantus SoloStar pen ??? losartan (Cozaar) 25 MG tablet ??? losartan (Cozaar) 50 MG tablet Take 1 (one) tablet by mouth once daily (Patient not taking: Reported on 10/08/2023) ??? metFORMIN (Glucophage) 1000 MG tablet Take 0.5 (one-half) tablet by mouth 2 times daily ??? metFORMIN (Glucophage) 1000 MG tablet (Patient not taking: Reported on 10/08/2023) ??? mupirocin (Bactroban) 2 % ointment (Patient not taking: Reported on 10/08/2023) ??? oyster shell calcium 500 MG tablet ??? pantoprazole EC (Protonix) 40 MG tablet Take 1 (one) tablet by mouth daily before breakfast (Patient not taking: Reported on 10/08/2023) ??? pantoprazole EC (Protonix) 40 MG tablet Take 1 (one) tablet by mouth once daily (Patient not taking: Reported on 10/08/2023) ??? pantoprazole EC (Protonix) 40 MG tablet ??? potassium chloride ER (Klor-Con M) 20 MEQ tablet (Patient not taking: Reported on 10/08/2023) ??? promethazine (Phenergan) 25 MG tablet (Patient not taking: Reported on 10/08/2023) ??? tamsulosin (Flomax) 0.4 MG capsule Take 1 (one) capsule by mouth once daily At the same time every day after a meal. ??? traMADol (Ultram) 50 MG tablet (Patient not taking: Reported on 10/08/2023) ??? TRUEplus Pen Marion 31G X 5 MM needle ??? Trulicity 1.5 MG/0.5ML injection ??? vitamin D, ergocalciferol, (Drisdol) 1.25 MG (45825 UT) capsule No current facility-administered medications for this visit. OC@ EXAMINATION: BP 126/81 Pulse 98 Temp (!) 96.3 ??F (35.7 ??C) Wt (!) 157.4 kg (347 lb) SpO2 97% Physical: General: alert and oriented. No acute distress. HEENT: Normocephalic, no discharge from the ears, oral mucosa moist. Mallampati class IV. No corneal abrasions. Neck supple, non-tender. No bruit Respiratory: Symmetric chest wall expansion. Lungs clear. Cardiovascular: Normal rate, regular rhythm Extremities: Warm, no discolorations. No Lymphadenopathy Skin: No rash or lesions NEUROLOGICAL EXAMINATION: ?? Mental Status: The patient is awake, alert, cooperative and oriented x 3. Answers questions and follows commands appropriately. Speech is clear without dysarthria. Language is fluent with intact naming, comprehension, repetition and expression. ?? Cranial Nerve Exam: Visual gonsalez are full to confrontation. The pupils react directly and consensually to light, no APD. Fundi with sharp disk margins and normal vasculature. Extraocular movements are intact to tracking and saccades without nystagmus, no MELLO. Face symmetric at rest and with activation. No facial weakness. Sensation is intact over the face in the V1-V3 to temperature and light touch. Hearing is intact to finger rub. Tongue and uvula are midline. Masseter strength is normal. Sternocleidomastoid and trapezius strength are normal. ?? Motor: Strength is 5/5 (full), except for left fingers abduction 2+/5, and bilateral digital campaign manager 5/5 on the right, and 5-/5 on the left. Tone is normal throughout. No abnormal movements are seen. No wasting of any musculature is noted. No pronator drift, no satelliting. ?? Sensory: Sensation to light touch is absent from the toes up the knees bilaterally symmetrical. Temperature sensation perceived as touch toes to the knees bilaterally symmetrical Pinprick sensation absent from the toes up to the knees bilaterally symmetrical, proprioception is absent at the great toes Vibratory sensation is absent at the great toes and present at the at the ankles but slightly. It is strong at the knees ?? Reflexes: Deep tendon reflexes are absent throughout except for biceps 2/4 and knees 2/4, bilaterally; absent ankle reflexes, mute plantar reflexes. No ankle clonus. ?? Coordination: Finger to nose mild distal tremor on the left, rapid alternating; fast finger movements are mildly on the left.. Rapid repetitive movements are normal. ?? Gait: Raises from a seated position with arms crossed in front of the chest. Gait is mildly broad based, steady, with a normal stride length and arm swings. Walks on toes, unable to walk on heels, walks in tandem with hesitance, Romberg sign is absent. Imaging, Labs, and Other Results IMPRESSION: Rene Hyatt is a very pleasant 43 year old yo right handed male who is seen in return consultation for numbness. He was last seen by me on 07/30/2023 His PMH is notable for DM type 1 Newly diagnosed in 03/30, on Insulin (Hb A1c was 13.3, last A1c 7,7 on 08/02/23), HTN, Anemia (on iron infusions),hypercholesterolemia, intermittent full body tremors, WEST, diabetic foot ulcer. He notices numbness a nd tingling in the feet 1 decade ago, and in the fingers and hands about 5 years ago. These have progressed insidiosly from distal to proximal to the point that he feels now persistently numb from the toes up to the knees and from the fingertips up to the wrists. In addition he endorses a tooth ache-like pain from the right elbow down to the wrist along the left side of the right forearm developed persistent numbness sensation that has ascended. Patient has concerns about having low testosterone, has not yet been tested. 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 RECOMMENATIONS: - Complete blood work for causes of neuropathy (included in the last visit) - Proceed with scheduled EMG>NCT on October 11. - Patient is to call physical therapy and occupational therapy to schedule appointments as he has not heard back yet from them. - Patient is to follow with primary care physician for concerns with low testosterone - Encourage him to maintain a balanced diet, including iron-rich foods. - for weight management recommend balanced diet, including adequate protein intake from sources such as eggs and cheese. May discuss with PCP weight management and related programs - Continue current home care arrangements with visiting nurse for his mother at home who is bedridden, so that he is able to address his appointments. Encourage him to seek additional support services if needed. Follow up in 2 months or sooner if needed A total of 60 minutes were spent [id number] and non [id number] with the patient. Thank you for allowing me to participate in the care of your patient. Please do not hesitate to contact me if I can provide any further assistance. Sincerely, Ferny Carreon MD PhD Neurology documented in this encounter Plan of Treatment Scheduled Orders Name Type Priority Associated Diagnoses Orde r Schedule BORRELIA BURGDORFERI VISE1/PEPC10 AB CSF TOTAL W/RFLX Lab Routine Polyneuropathy associated with underlying disease (HCC) 1 Occurrences starting 09/17/2023 until 09/11/2024 TSH+FREE T4 PANEL Lab Routine Polyneuropathy associated with underlying disease (HCC) Ordered: 09/17/2023 ANCA SCREEN W REFLEX TO ANCA TITER Lab Routine Polyneuropathy associated with underlying disease (HCC) Ordered: 09/17/2023 RHEUMATOID FACTOR+SSA+SSB Lab Routine Polyneuropathy associated with underlying disease (HCC) Ordered: 09/17/2023 documented as of this encounter Procedures Procedure Name Priority Date/Time Associated Diagnosis Comments CBC W AUTO DIFFERENTIAL Routine 09/17/19 12:47 PM CDT Polyneuropathy associated with underlying disease (HCC) PROTEIN ELECTROPHORESIS BLOOD Routine 09/17/2023 12:47 PM CDT Polyneuropathy associated with underlying disease (HCC) HEPATITIS C ANTIBODY Routine 09/17/2023 12:47 PM CDT Polyneuropathy associated with underlying disease (HCC) documented in this encounter Results * (ABNORMAL) CBC WITH DIFFERENTIAL (09/17/2023 12:47 PM CDT) WBC 7.6 4.0 - 10.7 x10E9/L 09/17/2023 1:20 PM [facility] RBC Count 3.94(L) 4.30 - 5.80 x10E12/L 09/17/2023 1:20 PM [facility] Hemoglobin 11.7(L) 13.3 - 17.5 g/dL 09/17/2023 1:20 PM [facility] Hematocrit 33.8(L) 38.7 - 51.1 % 09/17/2023 1:20 PM [facility] MCV 85.8 80.0 - 98.0 fL 09/17/2023 1:20 PM [facility] MCH 29.7 26.7 - 33.6 pg 09/17/2023 1:20 PM [facility] MCHC 34.6 31.7 - 36.3 g/dL 09/17/2023 1:20 PM [facility] RDW-CV 15.2(H) 11.3 - 14.8 % 09/17/2023 1:20 PM [facility] Platelet Count 189 150 - 420 x10E9/L 09/17/2023 1:20 PM [facility] MPV 9.7 7.8 - 11.4 fL 09/17/2023 1:20 PM [facility] Neutrophil % 64.0 41.0 - 74.0 % 09/17/2023 1:20 PM [facility] Lymphocyte % 26.5 17.0 - 47.0 % 09/17/2023 1:20 PM [facility] Monocyte % 6.8 3.0 - 11.0 % 09/17/2023 1:20 PM [facility] Eosinophil % 1.9 0.0 - 7.0 % 09/17/2023 1:20 PM [facility] Basophil % 0.5 0.0 - 1.6 % 09/17/2023 1:20 PM [facility] Immature Granulocytes % 0.3 0.0 - 1.0 % 09/17/2023 1:20 PM [facility] Neutrophil Absolute 4.84 1.60 - 7.50 x10E9/L 09/17/2023 1:20 PM [facility] Lymphocyte Absolute 2.00 1.00 - 4.40 x10E9/L 09/17/2023 1:20 PM [facility] Monocyte Absolute 0.51 0.15 - 1.00 x10E9/L 09/17/2023 1:20 PM [facility] Eosinophil Absolute 0.14 0.00 - 0.60 x10E9/L 09/17/2023 1:20 PM [facility] Basophil Absolute 0.04 0.00 - 0.13 x10E9/L 09/17/2023 1:20 PM [facility] Blood BLOOD SPECIMEN / Unknown Lab Venipuncture / Unknown 09/17/2023 12:47 PM CDT 09/17/2023 1:17 PM CDT Ferny Carreon MD LAB - HEMATOLOG Y ORDERABLES [facility] [address] [place] [address], [facility] [phone] * (ABNORMAL) COMPREHENSIVE METABOLIC PANEL (09/17/2023 12:47 PM CDT) BUN 18 7 - 26 mg/dL 09/17/2023 1:50 PM [facility] Creatinine 0.75 0.71 - 1.16 mg/dL 09/17/2023 1:50 PM [facility] Sodium 140 136 - 145 mmol/L 09/17/2023 1:50 PM [facility] Potassium 3.8 3.5 - 4.5 mmol/L 09/17/2023 1:50 PM [facility] Chloride 108(H) 98 - 107 mmol/L 09/17/2023 1:50 PM [facility] CO2 26 22 - 29 mmol/L 09/17/2023 1:50 PM [facility] Glucose 119(H) 70 - 115 mg/dL 09/17/2023 1:50 PM [facility] Calcium 9.6 8.4 - 10.2 mg/dL 09/17/2023 1:50 PM [facility] Protein Total 6.9 6.0 - 8.3 g/dL 09/17/2023 1:50 PM [facility] Albumin 3.6 3.4 - 5.0 g/dL 09/17/2023 1:50 PM [facility] Bilirubin Total 0.5 0.2 - 1.2 mg/dL 09/17/2023 1:50 PM [facility] Alkaline Phosphatase 84 40 - 150 U/L 09/17/2023 1:50 PM [facility] ALT 11 5 - 55 U/L 09/17/2023 1:50 PM [facility] AST 12 5 - 34 U/L 09/17/2023 1:50 PM [facility] Anion Gap 6 6 - 16 09/17/2023 1:50 PM CDT [facility] BUN/Creatinine Ratio 24(H) 7 - 23 09/17/2023 1:50 PM CDT [facility] Osmolality Calculated 293 275 - 295 mOsm/kg 09/17/2023 1:50 PM CDT [facility] Albumin/Globulin Ratio 1.1 1.1 - 2.3 09/17/2023 1:50 PM CDT [facility] eGFR by CKD-EPI >90 >=90 mL/min/1.7 3 m2 09/17/2023 1:50 PM CDT [facility] Blood BLOOD SPECIMEN / Unknown Lab Venipuncture / Unknown 09/17/2023 12:47 PM CDT 09/17/2023 1:17 PM CDT Ferny Carreon MD LAB - CHEMISTRY ORDERABLES Performing Organization Address [facility]/ZIP Co de Phone Number [address] [address], [facility] [phone] * HEPATITIS C ANTIBODY (09/17/2023 12:47 PM CDT) Pathologist [facility] Hepatitis C Antibody Non-react micah Non-reac tive 09/17/2023 2:10 PM CDT [facility] Comment:Hepatitis C Antibody screen indicates no [...] LAB - CHEMISTRY ORDERABLES Performing Organization Address City/[facility]/ZIP Co de Phone Number [address] [address], [facility] [phone] * PROTEIN ELECTROPHORESIS BLOOD (09/17/2023 12:47 PM CDT) Pathologist [facility] Interpretation Serum PE Normal Pattern Normal Pattern 09/21/2023 4:52 PM CDT [facility] Comment: Serum capillary electrophoresis shows characteristic bands corresponding to albumin, alpha and beta globulins and polyclonal immunoglobulins. No monoclonal immunoglobulin detected. Non-secretory myeloma (NSM) and light chain only myeloma cannot be excluded based on this result. ??Recommend serum free light chain measurements for complete evaluation of plasma cell disorders. ?? Renata Wadsworth, DO PGY-3 [facility] Department of Pathology I have reviewed and agree with the resident's interpretation and description of this case. Laquita Ramírez MD Attending Physician Department of Pathology Transfusion Medicine *The electrophoresis pattern and the interpretation have been reviewed and verified by the teaching physician. Protein Total 6.6 6.0 - 8.3 g/dL 09/21/2023 4:52 PM CDT [facility] Albumin 3.6 3.3 - 5.6 g/dL 09/21/2023 4:52 PM CDT [facility] Alpha-1 Globulins 0.3 0.2 - 0.4 g/dL 09/21/2023 4:52 PM CDT [facility] Alpha-2 Globulins 0.9 0.5 - 1.0 g/dL 09/21/2023 4:52 PM CDT [facility] Beta Globulins 0.8 0.6 - 1.1 g/dL 09/21/2023 4:52 PM CDT [facility] Gamma Globulins 1.0 0.6 - 1.6 g/dL 09/21/2023 4:52 PM CDT [facility] Blood BLOOD SPECIMEN / Unknown Lab Venipuncture / Unknown 09/17/2023 12:47 PM CDT 09/17/2023 1:15 PM CDT Ferny Carreon MD LAB - CHEMISTRY ORDERABLES [facility] [address] [place] [id number], [facility] [phone] * (ABNORMAL) VITAMIN B12 (09/17/2023 12:47 PM CDT) Vitamin B12 844(H) 213 - 816 pg/mL 09/17/2023 2:12 PM CDT [facility] Blood BLOOD SPECIMEN / Unknown Lab Venipuncture / Unknown 09/17/2023 12:47 PM CDT 09/17/2023 1:17 PM CDT Ferny Carreon MD LAB - CHEMISTRY ORDERABLES Performing Organization Address City/[facility]/ZIP Co de Phone Number [address] [address], [facility] [phone] * (ABNORMAL) HEMOGLOBIN A1C (09/17/2023 12:47 PM CDT) Hemoglobin A1c 6.2(H) <=5.6 % 09/17/2023 3:32 PM CDT [facility] Estimated Average Glucose 131 mg/dL 09/17/2023 3:32 PM CDT [facility] Comment: HbA1c Interpretation: Normal : < 5.7% Pre-diabetes: 5.7-6.4% Diabetes: Equal to or greater than 6.5% Test results diagnostic of diabetes should be repeated for confirmation. Treatment target values recommended by ADA and other clinical organizations should be used to evaluate metabolic control in patients. Reference: [place] [employer], Standards of Care in Diabetes -2020 In patients 70 years and older consider HbA1c target range of 7.0-7.5% (Reference: Armando Pearce et al. JAMDA. 2012) The Sebia assay for the measurement of HbA1c is a National Glycohemoglobin Standardization Program (NGSP) certified method. Blood BLOOD SPECIMEN / Unknown Lab Venipuncture / Unknown 09/17/2023 12:47 PM CDT 09/17/2023 1:17 PM CDT Ferny Carreon MD LAB - CHEMISTRY ORDERABLES Performing Organization Address City/[facility]/ZIP Co de Phone Number [facility] [address] [place] [phone], [place] [phone] documented in this encounter Visit Diagnoses Diagnosis Polyneuropathy associated with underlying disease (HCC)- Primary documented in this encounter Care Teams High School Counselor Relationship Specialty Start Date End Date Nguyễn Bingham MD [address] [place] [id number] PCP - General Family Medicine 07/03/23 documented as of this encounter
--- OUTSIDE RECORDS SUMMARY | 2024-06-08 00:02 | XMS_ITS | Encounter Summary ---
Author Organization [facility] Health Address [address] [place] [address] Care Team Providers Care Boat Carpenter Mechanic Name Role Phone Nguyễn Bingham MD Primary Care Provider [phone] Encounter Details Date Type Department Care Team (Latest Contact Info) Description 10/01/2023 Travel Social History Tobacco Use Types Packs/Day [...] on filedocumented in this encounter Care Teams Boat Carpenter Mechanic Relationship Specialty Start Date End Date Nguyễn Bingham MD [address] [facility] [address] [place] [address] PCP - General Family Medicine 07/03/23 documented as of this encounter
--- OUTSIDE RECORDS SUMMARY | 2024-06-08 00:02 | XMS_ITS | Encounter Summary ---
Author Organization [facility] Address [address] [facility] [address] [facility] [place] [address] Care Team Providers Care Veneer Drier Feeder Name Role Phone Nguyễn Bingham MD Primary Care Provider Reason for Visit * Neurology (Routine) - Closed Specialty Diagnoses / Procedures Referred By Contac t Referred To Contact Neurology Diagnoses Syncope, unspecified syncope type Procedures EEG EXTENDED MONITORING > 1 HOUR Lux Wayne APRN-CNP [address] [facility] [address]L [place] [address] [facility] Eeg/Emg [address] [place] [address] Referral ID Status Reason Start Date Expiration Date Visits Re quested Visits Authorized [id number] Closed 07/23/2023 07/22/2024 1 1 Encounter Details Date Type Department Care Team (Latest Contact Info) Description 11/04/2023 8:11 AM CDT - 11/04/2023 11:59 PM CDT Hospital Encounter [facility] EEG/EMG [address] [place] [address] Lux Wayne APRN-CNP [address] [facility] [address] [place] [address] Discharge Disposition: Home or Self Care Social History Tobacco Use Types Packs/Day Years [...] on file documented as of this encounter Medications at Time of Discharge Medication Sig Dispensed Refills Start Date End Date acetaminophen (Tylenol) 500 MG tablet Take 1 (one) tablet by mouth every 6 hours as needed Alcohol Swabs (Alcohol Prep) PADS 04/16/2023 ferrous sulfate 325 (65 FE) MG tablet [...] 20 (twenty) Units subcutaneously at bedtime 05/22/2023 pantoprazole EC (Protonix) 40 MG tablet 07/02/2023 tamsulosin (Flomax) 0.4 MG capsule Take 1 (one) capsule by mouth once daily At the same time every day after a meal. 90 capsule 4 07/16/2023 TRUEplus Pen Underwood 31G X 5 MM needle 06/19/2023 atorvastatin (Lipitor) 20 MG tablet Take 1 (one) tablet by mouth at bedtime 07/02/2023 05/26/2024 buPROPion XL 24hr (Wellbutrin-XL) 150 MG tablet Take 1 (one) tablet by mouth once daily 90 tablet 4 10/01/2023 05/26/2024 calcium carbonate (Os-Wilfredo 500) 1250 (500 Ca) MG tablet Take 1 (one) tablet by mouth once daily 05/26/2024 cephalexin (Keflex) 500 MG capsule 04/27/2023 05/26/2024 Cholecalciferol 1.25 MG (19213 UT) Take 50,000 Units by mouth Two times a week 04/01/2023 famotidine (Pepcid) 40 MG tablet Take 1 (one) tablet by mouth at bedtime 09/02/2023 05/26/2024 furosemide (Lasix) 20 MG tablet Take 1 (one) tablet by mouth once daily 05/26/2024 losartan (Cozaar) 25 MG tablet Take 1 (one) tablet by mouth once daily 07/21/2023 05/26/2024 metFORMIN (Glucophage) 1000 MG tablet Take 0.5 (one-half) tablet by mouth 2 times daily 05/26/2024 oyster shell calcium 500 MG tablet 05/20/2023 05/26/2024 Trulicity 1.5 MG/0.5ML injection 07/01/2023 vitamin D, ergocalciferol, (Drisdol) 1.25 MG (76659 UT) capsule 06/17/2023 4 documented as of this encounter Procedure Notes * Renetta Choi MD - 11/04/2023 11:30 AM CDT EEG REPORT Patient Name: Rene Hyatt Date: 11/04/2023 EEG#: [id number] Start Time: 95011-04-23 Stop Time: 105811-04-23 Clinical History: 43 YO Rt. Handed M w/ PMHx of neuropathy, unspecified syncope, and sleep apnea. EEG ordered for syncope Current medications: Current Outpatient Medications on File Prior to Encounter Medication Sig Dispense Refill acetaminophen (Tylenol) 500 [...] taking: Reported on 10/08/2023) Cholecalciferol 1.25 MG (19376 UT) Take 50,000 Units by mouth Two [...] a meal. 90 capsule 4 TRUEplus Pen [place]wood 31G X 5 MM needle Trulicity 1.5 MG/0.5ML injection vitamin D, ergocalciferol, (Drisdol) 1.25 MG (57066 UT) capsule No current facility-administered medications on file prior to encounter. Description This is a routine 21-channel EEG tracing consisting of 20 channels of EEG obtained from electrodes placed on the scalp according to the international 10- 20 system and one channel of EKG monitoring. It captures the awake, drowsy, asleep states. It is a good quality study Background The background consists of a posterior dominant alpha rhythm of 9-10 Hz, amplitude 20-30 microvolt.This is symmetric and attenuates with eye opening. Activation Procedures Activation procedures were performed. Stepwise photic stimulation from 1 Hz up to 30 Hz produced symmetric driving responses in the posterior head regions at the mid frequencies of stimulation. Hyperventilation was performed but failed to alter the record. Sleep Sleep stages 1 to 2 were seen. Normal sleep architecture was identified. Vertex sharp waves and spindles, and K-complexes were symmetric and are consistent with Stage 2 sleep. EKG was observed throughout the recording. IMPRESSION This is a normal extended awake and stage 1-2 sleep features captured. No evidence of encephalopathy was observed. No epileptiform discharges were observed. I personally reviewed this EEG with the resident and formulated the report. Please note a normal interictal EEG, does not rule out epilepsy Jerald Bermudez MD [place] PGY-2 NEUROLOGY RESIDENT PHYSICIAN Department of Neurology [facility] I personally interpreted the study and formulated the report. Renetta Choi MD * Luis Daniel Cunningham - 11/04/2023 11:02 AM CDT Outpatient EEG completed. Pt tolerated well. documented in this encounter Plan of Treatment Not on file documented as of this encounter Visit Diagnoses Diagnosis Syncope, unspecified syncope type documented in this encounter Care Teams Veneer Drier Feeder Relationship Specialty Start Date End Date Nguyễn Bingham MD [address] [place] [id number] PCP - General Family Medicine 07/03/23 documented as of this encounter
--- OUTSIDE RECORDS SUMMARY | 2024-06-08 00:02 | XMS_ITS | Encounter Summary ---
Author Organization [facility] Health Address [address] [place] [address] Care Team Providers Care Diabetes Clinical Manager Name Role Phone Nguyễn Bingham MD Primary Care Provider [phone] Reason for Visit * Reason Comments Establish Care Problem urinating Encounter Details Date Type Department Care Team (Late st Contact Info) Description 07/16/2023 1:00 PM PLANT HEALTH CARE TECHNICIAN Office Visit [facility] - Urology [address] [place] [address] [address] [place] [address] Cassandra Moore, MEDICAL LEAD-ACCOUNT GENERAL MANAGER [address] [facility] DEPT [place] [address] Benign prostatic hyperplasia with incomplete bladder emptying (Primary Dx); Nocturia; Urinary frequency; Urinary urgency Social History Tobacco Use Types Packs/Day Years [...] Sign Reading Time Taken Comments Blood Pressure 117/76 07/16/2023 1:10 PM PLANT HEALTH CARE TECHNICIAN Pulse 99 07/16/2023 1:10 PM PLANT HEALTH CARE TECHNICIAN Temperature 36.2 ??C (97.2 ??F) 07/16/2023 1:10 PM CS T Respiratory Rate 18 07/16/2023 1:10 PM PLANT HEALTH CARE TECHNICIAN Oxygen Saturation 93% 07/16/2023 1:10 PM PLANT HEALTH CARE TECHNICIAN Inhaled Oxygen Concentration - - Weight 153.3 kg (338 lb) 07/16/2023 1:10 PM PLANT HEALTH CARE TECHNICIAN Height 193 cm (6' 4 ) 07/16/2023 1:10 PM PLANT HEALTH CARE TECHNICIAN Body Mass Index 41.14 07/16/2023 1:10 PM PLANT HEALTH CARE TECHNICIAN documented in this encounter Patient Instructions * Patient Instructions* Cassandra Moore APRN-CNP - 07/16/2023 1:54 PM PLANT HEALTH CARE TECHNICIAN -To schedule an appointment please call [phone]. -To reach the [facility] office please call -For any nursing or surgery questions please call [phone] -FAX: or Start flomax Patient should stop drinking caffeine (coffee, dark soda) for one week. If symptoms improve drastically, need to limit caffeine intake when bothered by symptoms. Limit fluid intake 3 hours before bedtime to limit amount of urine made at night and therefore nocturia. Treat constipation. Adding fiber (fiber one bare, metamucil, fiber gummies, etc.) slowly to the diet (5g/day weekly) is the best way to regulate consistency and movements. You can also try miralax from every other day to twice a day depending on how you tolerate it. Use 3 deep breaths when defecating. You should notice movement without straining on the third exhale. Monitor your urinary symptoms in relation to constipation (do you have more urgency when you havebeen constipated for a day? How are the two related? Avoid alcohol, caffeine, carbonated drinks, tomato-based products, sugar, artificial sweetners (aspartame), spicy foods for some time to see if they are irritants. If they are, you can take Prelief (over the counter medication for bladder) prior to ingesting an irritant and see if it helps. T HEALTH CARE TECHNICIAN documented in this encounter Progress Notes * Cassandra Moore APRN-CNP - 07/16/2023 1:37 PM CST [facility] Division of Urologic Surgery Cassandra Moore APRN-YVETTE Date of Visit: 07/16/2023 Patient Name: Rene Hyatt : 1980 Medical Record: [id number] Contact (home) Age: [age] year old Sex: male Referring Physician: Nguyễn Bingham MD [address] [facility] [address] [place] [id number] Chief Complaint: LUTS History of Present Illness: The patient is a 43 year old white male for new evaluation and treatment of lower urinary tract symptoms. These include urinary urgency/frequency. Pt does have decreased urinary stream- states he cannot urinate without sitting down, otherwise his stream is weak and dribbles out. Pt does not have a history of urinary retention. Pt does not have a history of urinary tract infection- does have a hx of FG in fall 2022. Pt does not have a history of hematuria. Pt does not have a history of bladder stones. Nocturia 5 times/night. AUA SS is 4+4+4+4+5+3+5/35 with 5/6 bother. NO prior treatment for these symptoms. Pt does not have a family history of prostate cancer. Fluid intake- gatorade ~32oz, diet pepsi 2L a day, water ~12 oz Past Medical History; No past medical history on file. Past Surgical History: Past Surgical History: Procedure Laterality Date ??? Cyst Removal 2022 scrotum Current Medications: Current Outpatient Medications Medication Sig Dispense Refill ??? acetaminophen (Tylenol) 500 MG tablet Take 1 (one) tablet by mouth every 6 hours as needed ??? Alcohol Swabs (Alcohol Prep) PADS ??? atorvastatin (Lipitor) 20 MG tablet ??? ferrous sulfate 325 (65 FE) MG tablet ??? insulin lispro (HumaLOG;ADMelog) 100 UNIT/ML pen ??? Lancets (ONETOUCH DELICA PLUS 33G EXTRA FINE LANCET) ??? Lantus SoloStar pen ??? metFORMIN (Glucophage) 1000 MG tablet ??? oyster shell calcium 500 MG tablet ??? pantoprazole EC (Protonix) 40 MG tablet ??? TRUEplus Pen [place]arshall 31G X 5 MM needle ??? Trulicity 1.5 MG/0.5ML injection ??? vitamin D, ergocalciferol, (Drisdol) 1.25 MG (07648 UT) capsule No current facility-administered medications for this visit. Allergies; Patient has no known allergies. Family History: No family history on file. Pt does not have a family history of prostate cancer. Fm hx otherwise noncontributory to this patient complaint. Social History: Social History Socioeconomic History ??? Marital status: Unknown Spouse name: Not on file ??? Number of children: Not on file ??? Years of education: Not on file ??? Highest education level: Not on file Occupational History ??? Not on file Tobacco Use ??? Smoking status: Never ??? Smokeless tobacco: Never Vaping Use ??? Vaping Use: Never used Substance and Sexual Activity ??? Alcohol use: Never ??? Drug use: Never ??? Sexual activity: Never Other Topics Concern ??? Not on file Social History Narrative ??? Not on file Social Determinants of Health Financial Resource Strain: Not on file Food Insecurity: Not on file Transportation Needs: Not on file Stress: Not on file Housing Stability: Not on file Review of Systems: General: Negative Skin: Negative Eyes: Negative Ears/nose/mouth: Negative Lungs:Negative Heart:Negative Gastrointestinal: negative Genitourinary: See HPI Musculoskeletal: Negative Nervous system: Negative Reproductive system: Negative Hematologic: Negative Lymphatic: Negative Endocrine: Negative Physical Exam: Vital Signs: BP 117/76 (BP SITE: LEFT ARM, BP POSITION: SITTING, BP Cuff Size: XL) Pulse 99 Temp 97.2 ??F (36.2 ??C) (Temporal) Resp 18 Ht 1.93 m (6' 4 ) Wt (!) 153.3 kg (338 lb) SpO2 93% Gen - WN, WD male in NAD HEENT - NC/AT, EOMI Chest - normal respiratory rate and effort CV - RRR Abd - soft, nondistended, scaphoid Ext - no c/c/e, peripheral pulses easily palpable Skin - no rash/erythema noted, good skin turgor Rectal - nst, no masses. Prostate - normal consistency, nontender, no nodules. Estimated size of 30 grams, difficult due tobody habitus PVR per bladder scanner: 84ml Imaging (images and reports reviewed): Laboratory Studies: Office Visit on 07/16/23 URINALYSIS AUTO - POINT OF CARE (AMB) [facility] Result Value Ref Range Glucose UA - Bilirubin UA POCT - Ketones UA POCT - Specific [place] UA 1.030 Blood Urine POCT + pH UA 6.0 Protein UA 2+ Urobilinogen UA - Nitrite UA - WBC UA 2+ Microbiology: Pathology: Diagnosis: BPH, nocturia, frequency, urgency Recommendations: -patient with protein in his urine, states he has discussed this with pcp and has appointment with nephrology in two weeks -urine culture sent today -start flomax -behavioral changes discussed including decrease soda intake and limit gatorade, increase water 30 minutes were spent with patient. >50% were spent counseling patient. Patient's questions were answered and patient agrees with plan. HUMBLE Smith 07/16/2023 1:40 PM T HEALTH CARE TECHNICIAN documented in this encounter Procedure Notes * Vane Ibrahim MA - 07/16/2023 1:44 PM CSTAssociated Order(s): PROC BLADDER SCAN Procedure(s): NM MSR PVR U&/BLADD CAPCTY US NON Pre-Procedure Diagnose(s): Benign prostatic hyperplasia with incomplete bladder emptying Bladder scan completed. 84ml post void residual. T HEALTH CARE TECHNICIAN documented in this encounter Plan of Treatment Scheduled Orders Name Type Priority Associated Diagnoses Orde r Schedule CULTURE URINE Microbiology Routine Benign prostatic hyperplasia with incomplete bladder emptying 1 Occurrences starting 07/16/2023 until 08/09/2024 documented as of this encounter Procedures Procedure Name Priority Date/Time Associated Diagnosis Comments URINALYSIS AUTO - POINT OF CARE (AMB) [facility] Routine 07/16/2023 1:45 PM PLANT HEALTH CARE TECHNICIAN Benign prostatic hyperplasia with incomplete bladder emptying NM MSR PVR U&/BLADD CAPCTY US NON Routine 07/16/2023 1:44 PM PLANT HEALTH CARE TECHNICIAN Benign prostatic hyperplasia with incomplete bladder emptying CULTURE URINE 07/16/2023 documented in this encounter Results * URINALYSIS AUTO - POINT OF CARE (AMB) [facility] (07/16/2023 1:45 PM PLANT HEALTH CARE TECHNICIAN) Pathologist [facility] Glucose UA - [facility] [address] Bilirubin UA POCT - [facility] [address] Ketones UA POCT - [facility] [address] Specific [place] UA 1.[address] [facility] [address] Blood Urine POCT + [facility] [address] pH UA 6.0 [facility] [address] Protein UA 2+ [facility] [address] Urobilinogen UA - [facility] [address] Nitrite UA - [facility] [address] WBC UA 2+ [facility] [address] Urine URINE / Unknown 07/16/2023 1 :45 PM PLANT HEALTH CARE TECHNICIAN Casasndra Moore MEDICAL LEAD-ACCOUNT GENERAL MANAGER LAB - POINT OF CARE ORDERABLES [facility] [address] [place] [address], [facility] [phone] * NM [facility]SR PVR U&/BLADD CAPCTY US NON (07/16/2023 1:44 PM PLANT HEALTH CARE TECHNICIAN) Narrative Vane Ibrahim MA - 07/16/2023 1:44 PM PLANT HEALTH CARE TECHNICIAN Vane Ibrahim MA ? 07/16/2023 ??1:44 PM Bladder scan completed. 84ml post void residual. Cassandra Moore MEDICAL LEAD-ACCOUNT GENERAL MANAGER PROCEDURE/MINOR SURGICAL ORDERABLES * (ABNORMAL) CULTURE URINE (07/16/2023) Pathologist [facility] Culture (A) [facility]ST Comment: ??CULTURE, URINE, ROUTINE ?Micro Number: ?[id number] ??Test Status: ? Final ??Specimen Source: ?? Not given ??Specimen Quality: ??Adequate ??Result: ?Greater than 100,000 CFU/mL of Pooja glabrata ? Susceptibility testing not routinely ? performed on this isolate. Test Performed at: [id number] ??[id number] GLADIS GAMEZ MD 07/16/2023 07/17/2023 4:0 4 AM PLANT HEALTH CARE TECHNICIAN Cassandra Moore MEDICAL LEAD-ACCOUNT GENERAL MANAGER LAB - MICROBIOL OGY ORDERABLES Performing Organization Address City/State/[facility] Co de Phone Number [address] [address] documented in this encounter Visit Diagnoses Diagnosis Benign prostatic hyperplasia with incomplete bladder emptying- Primary Nocturia Urinary frequency Urinary urgency Urgency of urination documented in this encounter Care Teams Diabetes Clinical Manager Relationship Specialty Start Date End Date Nguyễn Bingham MD [address] [place] [address] PCP - General Family Medicine 07/03/23 documented as of this encounter
--- OUTSIDE RECORDS SUMMARY | 2024-06-08 00:02 | XMS_ITS | Encounter Summary ---
Author Organization [facility] Health Address [address] [place] [address] Care Team Providers Care Tube Turner Name Role Phone Nguyễn Bingham MD Primary Care Provider [phone] Encounter Details Date Type Department Care Team (Latest Contact Info) Description 08/25/2023 Travel Social History Tobacco Use Types Packs/Day [...] on filedocumented in this encounter Care Teams Tube Turner Relationship Specialty Start Date End Date Nguyễn Bingham MD [address] [facility] [address] [place] [address] PCP - General Family Medicine 07/03/23 documented as of this encounter
--- OUTSIDE RECORDS SUMMARY | 2024-06-08 00:02 | XMS_ITS | Encounter Summary ---
Author Organization [facility] Health Address [address] [place] [address] Care Team Providers Care Rotor Casting Machine Operator Name Role Phone Nguyễn Bingham MD Primary Care Provider [phone] Encounter Details Date Type Department Care Team (Latest Contact Info) Description 07/16/2023 Travel Social History Tobacco Use Types Packs/Day [...] on filedocumented in this encounter Care Teams Rotor Casting Machine Operator Relationship Specialty Start Date End Date Nguyễn Bingham MD [address] [facility] [address] [place] [address] PCP - General Family Medicine 07/03/23 documented as of this encounter
--- OUTSIDE RECORDS SUMMARY | 2024-06-08 00:02 | XMS_ITS | Encounter Summary ---
Author Organization [facility] Health Address [address] [place] [address] Care Team Providers Care Inspector Screen Printing Name Role Phone Nguyễn Bingham MD Primary Care Provider [phone] Reason for Visit * Reason Comments Establish Care BPH/FU Encounter Details Date Type Department Care Team (Late st Contact Info) Description 10/29/2023 1:00 PM CDT Office Visit [facility] - Urology [address] [place] [address] [address] [place] [address] Cassandra Moore, HEAD CUSTODIAN-CHEMICAL PROCESS EQUIPMENT OPERATOR [address] [facility] [place] [address] Urinary frequency (Primary Dx); Nocturia; Urinary urgency Social History Tobacco Use Types [...] Sign Reading Time Taken Comments Blood Pressure 129/80 10/29/2023 12:55 PM CDT Pulse 89 10/29/2023 12:55 PM CDT Temperature 36.6 ??C (97.8 ??F) 10/29/2023 12:55 PM C DT Respiratory Rate 16 10/29/2023 12:55 PM CDT Oxygen Saturation 97% 10/29/2023 12:55 PM CDT Inhaled Oxygen Concentration - - Weight 164.7 kg (363 lb) 10/29/2023 12:55 PM CDT Height 195.6 cm (6' 5 ) 10/29/2023 12:55 PM CDT Body Mass Index 43.05 10/29/2023 12:55 PM CDT documented in this encounter Progress Notes * Cassandra Moore APRN-CNP - 10/29/2023 1:05 PM CDT [facility] Division of Urologic Surgery [facility] Smith Date of Visit: 10/29/2023 Patient Name: Rene Hyatt : 1980 Medical Record: [id number] Contact (home) Age: [age] year old Sex: male Referring Physician: No referring provider defined for this encounter. Chief Complaint: LUTS, low testosterone History of Present Illness: The patient is a 43 year old white male for follow up of lower urinary tract symptoms. 07/16/2023: initial visit with HUMBLE Tello Complained of urinary urgency/frequency, decreased urinary stream, voids sitting, dribbling, nocturia x 8-9. Denies UTI, AUR, stones, hematuria. hx of FG in fall 2022. AUA SS is 4+4+4+4+5+3+5/35 with5/6 bother. NO prior treatment for these symptoms. No family history of prostate cancer. Fluid intake- gatorade ~32oz, diet pepsi 2L a day, water ~12 oz Started Flomax, limit fluids, soda and caffeine cessation, cut down. 10/08/2023 Patient continues to endorse LUTS, though they have improved since starting the Flomax 0.4mg QD. Patient states his nocturia has decreased to 5-6x a night opposed to 8-9x a night that it was prior tothe starting the Flomax. He continues to endorse urgency, but he feels that he is able to last longer between bathroom trips. Fluid intake: Patient has decreased his diet pepsi intake to 1 bottle/day and increased his water intake to ~4-6 cups a day. AUA SS is 5+0+5+5+5+2+5=27, QOL 6, terrible Besides his LUTS, patient states that a doctor told him he had low testosterone. He endorses fatigue, weakness, and a decreased libido. He has trouble sustaining an erection for more than 20 seconds at a time. He has WEST, stops breathing 20 times per night per his report. He is supposed to get a CPAP soon. He also shared he has road rage. Agrees he isn't taking good care of himself. TODAY 10/29/23- Patient here for follow up although recently saw Dr. Covington He has been taking flomax and noticed improvement. Uroflow completed today with peak flow of 8.3 ml/s, voided 206ml Fluid intake- stopped his soda intake, drinks about 2 cups of iced coffee a day, water 1 gallon. AUASS- 0+1+5+1+5+2+3, qol 3. Nocturia 3-4x, decreased from 5. Past Medical History; No past medical history on file. Past Surgical History: Past Surgical History: Procedure Laterality Date Cyst Removal 2022 scrotum Current Medications: Current Outpatient Medications Medication Sig Dispense Refill acetaminophen (Tylenol) 500 MG tablet Take 1 (one) tablet by mouth every 6 hours as needed Alcohol Swabs (Alcohol Prep) PADS bvjzihh-rxdfnfulqzmoq-rkuqrpye 250-250-65 MG tablet Take 1 (one) tablet by mouth once daily as needed (Patient not taking: Reported on 10/08/2023) atorvastatin (Lipitor) 20 MG tablet atorvastatin (Lipitor) 20 MG tablet Take 1 (one) tablet by mouth once daily (Patient not taking: Reported on 10/29/2023) Baqsimi One Pack 3 MG/DOSE POWD (Patient not taking: Reported on 10/08/2023) buPROPion XL 24hr (Wellbutrin-XL) 150 MG tablet Take 1 (one) tablet by mouth once daily 90 tablet 4 calcium carbonate (Os-Wilfredo 500) 1250 (500 Ca) MG tablet Take 1 (one) tablet by mouth once daily cephalexin (Keflex) 500 MG capsule (Patient not taking: Reported on 10/08/2023) Cholecalciferol 1.25 MG (25523 UT) Take 50,000 Units by mouth Two times a week cyanocobalamin (Vitamin B-12) injection (Patient not taking: Reported on 10/08/2023) doxycycline hyclate (Acticlate) 100 MG tablet Take 1 (one) tablet by mouth 2 times daily (Patient not taking: Reported on 10/29/2023) doxycycline hyclate (Vibramycin) 100 MG capsule (Patient not taking: Reported on 10/08/2023) famotidine (Pepcid) 40 MG tablet Take 1 (one) tablet by mouth at bedtime ferrous sulfate 325 (65 FE) MG tablet furosemide (Lasix) 20 MG tablet gabapentin (Neurontin) 300 MG capsule Take 1 (one) capsule by mouth 3 times daily 270 capsule 3 GaviLyte-N with Flavor Pack 420 g solution (Patient not taking: Reported on 10/08/2023) GoodSense ClearLax 17 GM/SCOOP powder (Patient not taking: Reported on 10/08/2023) insulin lispro (HumaLOG;ADMelog) 100 UNIT/ML pen Inject 10 (ten) Units subcutaneously 3 times dailybefore meals Lancets (ONETOUCH DELICA PLUS 33G EXTRA FINE LANCET) Lantus SoloStar pen losartan (Cozaar) 25 MG tablet losartan (Cozaar) 50 MG tablet Take 1 (one) tablet by mouth once daily (Patient not taking: Reported on 10/08/2023) metFORMIN (Glucophage) 1000 MG tablet Take 0.5 (one-half) tablet by mouth 2 times daily metFORMIN (Glucophage) 1000 MG tablet (Patient not taking: Reported on 10/08/2023) metFORMIN (Glucophage) 500 MG tablet TAKE ONE TABLET (500MG) BY MOUTH TWICE DAILY WITH MEALS (Patient not taking: Reported on 10/29/2023) mupirocin (Bactroban) 2 % ointment (Patient not taking: Reported on 10/08/2023) oyster shell calcium 500 MG tablet pantoprazole EC (Protonix) 40 MG tablet pantoprazole EC (Protonix) 40 MG tablet Take 1 (one) tablet by mouth daily before breakfast (Patient not taking: Reported on 10/08/2023) pantoprazole EC (Protonix) 40 MG tablet Take 1 (one) tablet by mouth once daily (Patient not taking: Reported on 10/08/2023) potassium chloride ER (Klor-Con M) 20 MEQ tablet (Patient not taking: Reported on 10/08/2023) promethazine (Phenergan) 25 MG tablet (Patient not taking: Reported on 10/08/2023) tamsulosin (Flomax) 0.4 MG capsule Take 1 (one) capsule by mouth once daily At the same time every day after a meal. 90 capsule 4 traMADol (Ultram) 50 MG tablet (Patient not taking: Reported on 10/08/2023) TRUEplus Pen [place] 31G X 5 MM needle Trulicity 1.5 MG/0.5ML injection vitamin D, ergocalciferol, (Drisdol) 1.25 MG (10376 UT) capsule No current facility-administered medications for this visit. Allergies; Patient has no known allergies. Family History: No family history on file. Pt does not have a family history of prostate cancer. Fm hx otherwise noncontributory to this patient complaint. Social History: Social History Socioeconomic History Marital status: Unknown Spouse name: Not on file Number of children: Not on file Years of education: Not on file Highest education level: Not on file Occupational History Not on file Tobacco Use Smoking status: Never Smokeless tobacco: Never Vaping Use Vaping Use: Never used Substance and Sexual Activity Alcohol use: Never Drug use: Never Sexual activity: Never Other Topics Concern Not on file Social History Narrative Not on file Social Determinants of Health Financial Resource Strain: Not on file Food Insecurity: Not on file Transportation Needs: Not on file Stress: Not on file Housing Stability: Not on file Review of Systems: General: Negative Skin: Negative Eyes: Negative Ears/nose/mouth: Negative Lungs:WEST Heart:Negative Gastrointestinal: negative Genitourinary: See HPI Musculoskeletal: chronic lower back pain Nervous system: Negative Reproductive system: Negative Hematologic: Negative Lymphatic: Negative Endocrine: Late onset T1DM Physical Exam: Vital Signs: BP 129/80 (BP Location: Left arm, Patient Position: Sitting, BP Cuff Size: Adult long) Pulse 89 Temp 97.8 ??F (36.6 ??C) (Temporal) Resp 16 Ht 1.956 m (6' 5 ) Wt (!) 164.7 kg (363 lb) SpO2 97% Gen: Alert and oriented x3 Head: normocephalic Lungs: Non-labored respirations Heart: RRR Abd: soft, nontender, nondistended : no CVA tenderness, no suprapubic pain MSK: normal gait and strength Skin: No rashes PVR per bladder scanner: Imaging (images and reports reviewed): Laboratory Studies: No results found for this visit on 10/29/23. Microbiology: No growth 07/31/23 Pathology: NA Diagnosis: BPH, nocturia, frequency, urgency, low testosterone Recommendations: - continue flomax - patient to be fitted for CPAP. Educated that often once you are sleeping better and WEST is treated, many symptoms of low T also get better and testosterone will improve. Plan for rechecking testosterone 3 months after wearing CPAP well. - He is already scheduled with Dr. Covington to complete cysto to rule out stricture or obstruction from prostate. He is very young to have an obstructing prostate. - behavioral changes discussed including continuing to decrease soda intake and lifestyle modifications HUMBLE Smith 10/29/2023 1:06 PM documented in this encounter Plan of Treatment Not on file documented as of this encounter Visit Diagnoses Diagnosis Urinary frequency- Primary Nocturia Urinary urgency Urgency of urination documented in this encounter Care Teams Inspector Screen Printing Relationship Specialty Start Date End Date Nguyễn Bingham MD [address] [place] [id number] PCP - General Family Medicine 07/03/23 documented as of this encounter
--- OUTSIDE RECORDS SUMMARY | 2024-06-08 00:02 | XMS_ITS | Encounter Summary ---
Author Organization [facility] Health Address [address] [place] [address] Care Team Providers Care Instructor Knitting Name Role Phone Nguyễn Bingham MD Primary Care Provider [phone] Reason for Visit * Reason Comments Establish Care Tremors of nervous s ystem Encounter Details Date Type Department Care Team (Late st Contact Info) Description 10/12/2023 10:30 AM CDT Office Visit [facility] - Neurology [address] [facility] [place] [id number] Nomi Arana MD [address] [facility] [address] [place] [address] Lux Wayne APRN-DATA ANALYSIS ASSISTANT [address] [facility] [address] [place] [address] Diabetic peripheral autonomic neuropathy (HCC) (Primary Dx) Social History Tobacco Use [...] Sign Reading Time Taken Comments Blood Pressure 152/89 10/12/2023 10:39 AM CDT Pulse 95 10/12/2023 10:39 AM CDT Temperature - - Respiratory Rate - - Oxygen Saturation 98% 10/12/2023 10:39 AM CDT Inhaled Oxygen Concentration - - Weight 164.7 kg (363 lb) 10/12/2023 10:39 AM CDT Height 195.6 cm (6' 5 ) 10/12/2023 10:39 AM CDT Body Mass Index 43.05 10/12/2023 10:39 AM CDT documented in this encounter Patient Instructions * Patient Instructions* Lux Wayne APRN-CNP - 10/12/2023 11:11 AM CDT Neuropathy Please increase Gabapentin 300 mg (1) Three times daily Please see Neuromuscular specialist documented in this encounter Progress Notes * Lux Wayne APRN-CNP - 10/12/2023 10:43 AM CDT Movement Fu exam Rene Hyatt Age: [age] year old Date of : 1980 Referring Physician and PCP: Nguyễn Bingham MD Reason for consult: Whole body tremors Information was obtained from patient and chart review History of Present Illness Rene Hyatt is a 43 year old year old R handed male (H/o falls; syncope 08/01 with LOC, knee pain, got it checked at ER; CT head wnl). This episode happened as he was getting his mother checked in ER (she is in hospital for paralysis) Has foot numbness 03/30 Sleep apnea, severe (sleep study) Full body tremors Newly diagnosed with DM Hb A1c was 13.3; now 120 to 170 with introduction of Insulin in daily regimen; however repots tremors in the whole body when he is trying to sleep at night Last dose of insulin 7 pm with meals Sleeping time 2 am in morning Reports numbness in legs are bothersome and doesnot have sensation in both legs and reports he did not have insurance for a long period of time and never got his physical exams and might got a long standing Diabetes and started receiving medical management since few months No Tremors, no Slowness, no Stiffness, no balance No involuntary movement (IM) ADLs - wnl Rigidity-none Bradykinesia-none Gait -steady Falls-yes Smell-wnl Speech-wnl Swallowing-wnl Drooling-wnl Bladder/Bowel-+ c/o urinary in frequency, constipation Exercise-wnl Dystonia negative Freezing- None Memory-no difficulty Mood- pleasant Sleep: problem, getting a CPAP sooner 10/12/[address] 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 acetaminophen (Tylenol) 500 MG tablet Take 1 (one) tablet by mouth every 6 hours as needed ??? Alcohol Swabs (Alcohol Prep) PADS ??? lteekdk-cfsrguvhbyria-kithvoqu 250-250-65 MG tablet Take 1 (one) tablet [...] (Patient not taking: Reported on 10/08/2023) ??? Cholecalciferol 1.25 MG (51071 UT) Take 50,000 Units by mouth Two times a week ??? cyanocobalamin (Vitamin B-12) injection (Patient not taking: Reported on 10/08/2023) ??? doxycycline hyclate (Acticlate) 100 MG tablet Take 1 (one) tablet by mouth 2 times daily ??? doxycycline hyclate (Vibramycin) 100 MG capsule (Patient not taking: Reported on 10/08/2023) ??? famotidine (Pepcid) 40 MG tablet Take 1 (one) tablet by mouth at bedtime ??? ferrous sulfate 325 (65 FE) MG tablet ??? fluconazole (Diflucan) 200 MG tablet ??? fluconazole (Diflucan) 200 MG tablet (Patient not taking: Reported on 10/08/2023) ??? furosemide (Lasix) 20 MG tablet ??? [...] taking: Reported on 10/08/2023) ??? metFORMIN (Glucophage) 500 MG tablet TAKE ONE TABLET (500MG) BY MOUTH TWICE DAILY WITH MEALS ??? mupirocin (Bactroban) 2 % ointment (Patient not taking: Reported on 10/08/2023) ??? oyster shell calcium 500 MG tablet ??? pantoprazole EC (Protonix) 40 MG tablet ??? pantoprazole EC (Protonix) 40 MG tablet Take 1 (one) tablet by mouth daily before breakfast (Patient not taking: Reported on 10/08/2023) ??? pantoprazole EC (Protonix) 40 MG tablet Take 1 (one) tablet by mouth once daily (Patient not taking: Reported on 10/08/2023) ??? potassium chloride ER (Klor-Con M) 20 [...] taking: Reported on 10/08/2023) ??? TRUEplus Pen [place] 31G X 5 MM needle ??? Trulicity 1.5 MG/0.5ML injection ??? vitamin D, ergocalciferol, (Drisdol) 1.25 MG (35683 UT) capsule No current facility-administered medications for this visit. Review of Systems General, Eyes, ENT, Pulmonary, Cardiac, GI, , Neurologic, Psychiatric, Skeletal, Endocrine, Skin:All systems reviewed- negative for symptoms except per HPI Past Medical and Surgical History No past medical history on file. Past Surgical History: Procedure Laterality Date ??? Cyst Removal 2022 scrotum Patient Active Problem List: Anemia Class 3 obesity (HCC) Diabetic foot ulcer (HCC) Hypertension T1DM (type 1 diabetes mellitus) (HCC) Vitamin D deficiency Social History Social History Tobacco Use ??? Smoking status: Never ??? Smokeless tobacco: Never Vaping Use ??? Vaping Use: Never used Substance Use Topics ??? Alcohol use: Never ??? Drug use: Never Examination Vitals Vitals: 10/12/23 1039 BP: 152/89 Pulse: 95 SpO2: 98% Weight: (!) 164.7 kg (363 lb) Height: 1.956 m (6' 5 ) Physical Exam Constitutional General Appearance: in no apparent distress, well developed and well nourished, non-toxic, in no respiratory distress and acyanotic, alert, oriented times 3, afebrile, normal vitals and cooperative Skin unremarkable Mental Status A & O x 3 Recent and Remote Memory: fair Attention Span and Concentration: wnl Speech/Language: fluent Cranial Nerve Assessment Pupils 3 mm ;PERRL, EOMI, VF intact, facial sensation intact, facial expression symmetric, hearing intact to finger rub bilaterally, symmetric palate elevation, shoulder shrug intact and symmetric, tongue protrudes midlinewithout fascicuations or atrophy Assessment of Motor Function Muscle Bulk: No muscle wasting or fasciculations noted, symmetric, no generalized wasting or cachexia present Muscle Strength: Strength Deltoid Triceps Biceps Scarf And Anneal Operator Iliopsoas Hamstring Quadriceps TA EHL R 5/5 5/5 5/5 5/5 5/5 5/5 5/5 5/5 5/5 L 5/5 5/5 5/5 5/5 5/5 5/5 5/5 5/5 5/5 Muscle Tone: Description of the Involuntary Movement: wnl Reflexes DTR: Bi Tri BR Pat Ach Planter R 2 2 2 2 2 Down L 2 2 2 2 2 Down Examination of Sensation Decreased in LE Cerebellar Coordination Finger/Nose: intact Gait: Normal stride and stance Normal tandem Data Review/Other Information Notes from outside provider All labs reviewed ASSESSMENT: 1. No ET or PD 2. PN 3. Tremors more likely from blood sugar getting low with hypoglycemia 4. Obesity PLAN: To increase Gabapentin 300 mg (1) Three times daily To see Weight loss clinic To see Neuromuscular specialist for further recommendations Fu as needed All pertinent questions were answered to patient's satisfaction during this clinical visit. - Call if any questions arise. Patient is to closely follow up with the primary physician for medical needs. Signed Electronically [facility] Department of Neurology 10/12/2023 documented in this encounter Plan of Treatment Not on file documented as of this encounter Visit Diagnoses Diagnosis Diabetic peripheral autonomic neuropathy (HCC)- Primary Type II or unspecified type diabetes mellitus with neurological manifestations, not stated as uncontrolled documented in this encounter Care Teams Instructor Knitting Relationship Specialty Start Date End Date Nguyễn Bingham MD [address] [place] [address] PCP - General Family Medicine 07/03/23 documented as of this encounter
--- OUTSIDE RECORDS SUMMARY | 2024-06-08 00:02 | XMS_ITS | Encounter Summary ---
Author Organization [facility] Health Address [address] [place] [address] Care Team Providers Care Coin Box Inspector Name Role Phone Nguyễn Bingham MD Primary Care Provider [phone] Encounter Details Date Type Department Care Team (Latest Contact Info) Description 09/22/2023 Travel Social History Tobacco Use Types Packs/Day [...] on filedocumented in this encounter Care Teams Coin Box Inspector Relationship Specialty Start Date End Date Nguyễn Bingham MD [address] [facility] [address] [place] [address] PCP - General Family Medicine 07/03/23 documented as of this encounter
--- OUTSIDE RECORDS SUMMARY | 2024-06-08 00:02 | XMS_ITS | Encounter Summary ---
Author Organization [facility] Health Address [address] [place] [address] Care Team Providers Care Medical Assistant Cardiology Name Role Phone Nguyễn Bingham MD Primary Care Provider [phone] Encounter Details Date Type Department Care Team (Latest Contact Info) Description 11/16/2023 Travel Social History Tobacco Use Types Packs/Day [...] on filedocumented in this encounter Care Teams Medical Assistant Cardiology Relationship Specialty Start Date End Date Nguyễn Bingham MD [address] [facility] [address] [place] [address] PCP - General Family Medicine 07/03/23 documented as of this encounter
--- OUTSIDE RECORDS SUMMARY | 2024-06-08 00:02 | XMS_ITS | Encounter Summary ---
Author Organization [facility] Address [address] [place] [address] Care Team Providers Care Supervisor Industrial Arts Education Name Role Phone Nguyễn Bingham MD Primary Care Provider [phone] Encounter Details Date Type Department Care Team (Latest Contact Info) Description 09/17/2023 12:20 PM CDT - 09/17/2023 11:59 PM CDT Hospital Encounter [facility] [address] [place] [phone] Discharge Disposition: Home or Self Care Social [...] tablet by mouth daily with breakfast 06/02/2023 insulin lispro (HumaLOG;ADMelog) 100 UNIT/ML pen Inject [...] meal. 90 capsule 4 07/16/2023 TRUEplus Pen [place] 31G X 5 MM needle 06/19/2023 aspirin-acetaminoph en-caffeine 250-250-65 MG tablet Take 1 (one) tablet by mouth once daily as needed 11/04/2023 atorvastatin (Lipitor) 20 MG tablet Take 1 (one) tablet by mouth once daily 08/17/2023 11/04/2023 atorvastatin (Lipitor) 20 MG tablet Take 1 (one) tablet by mouth at bedtime 07/02/2023 05/26/2024 Baqsimi One Pack 3 MG/DOSE POWD 03/25/2023 11/04/2023 calcium carbonate (Os-Wilfredo 500) 1250 (500 Ca) MG tablet Take 1 (one) tablet by mouth once daily 05/26/2024 cephalexin (Keflex) 500 MG capsule 04/27/2023 05/26/2024 Cholecalciferol 1.25 MG (00952 UT) Take 50,000 Units by mouth Two times a week 04/01/2023 4 cyanocobalamin (Vitamin B-12) injection 11/04/2023 doxycycline hyclate (Vibramycin) 100 MG capsule 03/02/2023 11/04/2023 famotidine (Pepcid) 40 MG tablet Take 1 (one) tablet by mouth at bedtime 09/02/2023 05/26/2024 fluconazole (Diflucan) 200 MG tablet 03/25/2023 10/14/2023 furosemide (Lasix) 20 MG tablet Take 1 (one) tablet by mouth once daily 05/26/2024 gabapentin (Neurontin) 100 MG capsuleIndications: Diabetic peripheral autonomic neuropathy (HCC) Take 1 (one) capsule by mouth 3 times daily 270 capsule 3 07/23/2023 10/12/2023 GaviLyte-N with Flavor Pack 420 g solution 07/10/2023 11/04/2023 GoodSense ClearLax 17 GM/SCOOP powder 07/17/2023 losartan (Cozaar) 25 MG tablet Take 1 (one) tablet by mouth once daily 07/21/2023 05/26/2024 losartan (Cozaar) 50 MG tablet Take 1 (one) tablet by mouth once daily 11/04/2023 metFORMIN (Glucophage) 1000 MG tablet Take 0.5 (one-half) tablet by mouth 2 times daily 05/26/2024 metFORMIN (Glucophage) 1000 MG tablet 07/01/2023 11/04/2023 mupirocin (Bactroban) 2 % ointment 04/28/2023 11/04/2023 oyster shell calcium 500 MG tablet 05/20/2023 05/26/2024 pantoprazole EC (Protonix) 40 MG tablet Take 1 (one) tablet by mouth daily before breakfast 11/04/2023 pantoprazole EC (Protonix) 40 MG tablet Take 1 (one) tablet by mouth once daily 03/26/2023 11/04/2023 potassium chloride ER (Klor-Con M) 20 MEQ tablet 04/27/2023 11/04/2023 promethazine (Phenergan) 25 MG tablet 07/10/2023 11/04/2023 traMADol (Ultram) 50 MG tablet 03/02/2023 11/04/2023 Trulicity 1.5 MG/0.5ML injection 07/01/2023 4 vitamin D, ergocalciferol, (Drisdol) 1.25 MG (14931 UT) capsule 06/17/2023 4 documented as of this encounter Plan of Treatment Not on file documented as of this encounter Procedures Procedure Name Priority Date/Time Associated Diagnosis Comments SS-A (SJOGREN'S) 52+60 ANTIBODIES Routine 09/17/2023 12:47 PM CDT Polyneuropathy associated with underlying disease (HCC) TSH REFLEX FREE T4 Routine 09/17/2023 12 :47 PM CDT Polyneuropathy associated with underlying disease (HCC) RHEUMATOID FACTOR BLOOD QUANTITATIVE Routine 09/17/2023 12:47 PM CDT Polyneuropathy associated with underlying disease (HCC) HEMOGLOBIN A1C Routine 09/17/2023 12:47 PM CDT Polyneuropathy associated with underlying disease (HCC) SS-B (SJOGREN'S) ANTIBODY Routine 09/17/2023 12:47 PM CDT Polyneuropathy associated with underlying disease (HCC) MPO/GA 3 AUTOANTIBODIES PANEL Routine 09/17/2023 12:47 PM CDT Polyneuropathy associated with underlying disease (HCC) COMPREHENSIVE METABOLIC PANEL Routine 09/17/2023 12:47 PM CDT Polyneuropathy associated with underlying disease (HCC) VITAMIN B12 Routine 09/17/2023 12:47 PM CDT Polyneuropathy associated with underlying disease (HCC) documented in this encounter Results * (ABNORMAL) COMPREHENSIVE METABOLIC PANEL (09/17/2023 12:47 PM CDT) BUN 18 7 - 26 mg/dL 09/17/2023 1:50 PM [facility] Creatinine 0.75 0.71 - 1.16 mg/dL 09/17/2023 1:50 PM [facility] Sodium 140 136 - 145 mmol/L 09/17/2023 1:50 PM [facility] Potassium 3.8 3.5 - 4.5 mmol/L 09/17/2023 1:50 PM [facility] Chloride 108(H) 98 - 107 mmol/L 09/17/2023 1:50 PM [facility] CO2 26 22 - 29 mmol/L 09/17/2023 1:50 PM [facility] Glucose 119(H) 70 - 115 mg/dL 09/17/2023 1:50 PM [facility] Calcium 9.6 8.4 - 10.2 mg/dL 09/17/2023 1:50 PM [facility] Protein Total 6.9 6.0 - 8.3 g/dL 09/17/2023 1:50 PM [facility] Albumin 3.6 3.4 - 5.0 g/dL 09/17/2023 1:50 PM [facility] Bilirubin Total 0.5 0.2 - 1.2 mg/dL 09/17/2023 1:50 PM CDT [facility] Alkaline Phosphatase 84 40 - 150 U/L 09/17/2023 1:50 PM [facility] ALT 11 5 - 55 U/L 09/17/2023 1:50 PM T [facility] AST 12 5 - 34 U/L 09/17/2023 1:50 PM T [facility] Anion Gap 6 6 - 16 09/17/2023 1:50 PM T [facility] BUN/Creatinine Ratio 24(H) 7 - 23 09/17/2023 1:50 PM T [facility] Osmolality Calculated 293 275 - 295 mOsm/kg 09/17/2023 1:50 PM [facility] Albumin/Globulin Ratio 1.1 1.1 - 2.3 09/17/2023 1:50 PM [facility] eGFR by CKD-EPI >90 >=90 mL/min/1.7 3 m2 09/17/2023 1:50 PM T [facility] Blood BLOOD SPECIMEN / Unknown Lab Venipuncture / Unknown 09/17/2023 12:47 PM CDT 09/17/2023 1:17 PM CDT Ferny Carreon MD LAB - CHEMISTRY ORDERABLES [address] [address], [facility] [phone] * (ABNORMAL) VITAMIN B12 (09/17/2023 12:47 PM CDT) Vitamin B12 844(H) 213 - 816 pg/mL 09/17/2023 2:12 PM CDT [facility] Blood BLOOD SPECIMEN / Unknown Lab Venipuncture / Unknown 09/17/2023 12:47 PM CDT 09/17/2023 1:17 PM CDT Ferny Carreon MD LAB - CHEMISTRY ORDERABLES [address] [address], [place] [phone] * (ABNORMAL) HEMOGLOBIN A1C (09/17/2023 12:47 PM CDT) Pathologist [facility] Hemoglobin A1c 6.2(H) <=5.6 % 09/17/2023 3:32 PM CDT [facility] Estimated Average Glucose 131 mg/dL 09/17/2023 3:32 PM CDT [facility] Comment: HbA1c Interpretation: Normal : < 5.7% Pre-diabetes: 5.7-6.4% Diabetes: Equal to or greater than 6.5% Test results diagnostic of diabetes should be repeated for confirmation. Treatment target values recommended by ADA and other clinical organizations should be used to evaluate metabolic control in patients. Reference: [place] [employer] Association, Standards of Care in Diabetes [...] LAB - CHEMISTRY ORDERABLES Performing Organization Address City/State/[facility] Co de Phone Number [facility] [address] [place] [address], [facility] [phone] * MPO/GA 3 AUTOANTIBODIES PANEL (09/17/2023 12:47 PM CDT) Pathologist [facility] Serine Proteinase 3 IgG 0 0 - 19 AU/mL 09/19/2023 6:55 AM CDT [facility] ([facility]) Comment: INTERPRETIVE INFORMATION: Serine Proteinase 3, IgG ??19 AU/mL or Less ........ Negative ??20-25 AU/mL ............. Equivocal ??26 AU/mL or Greater ..... Positive Approximately 85% of patients with a C-ANCA pattern by IFA have antibodies specific for PR3. Performed By: [facility] [address] [place] [id number] Recreation Adviser: Henrique Myles MD, PhD CLIA Number: [id number] Myeloperoxidase Antibody 0 0 - 19 AU/mL 09/19/2023 6:55 AM CDT [facility] ([facility]) Comment: INTERPRETIVE INFORMATION: Myeloperoxidase Abs, IgG ??19 AU/mL or Less ......... Negative ??20-25 AU/mL .............. Equivocal ??26 AU/mL or Greater ...... Positive Approximately 90% of patients with a P-ANCA pattern by IFA have antibodies specific for MPO. Blood BLOOD SPECIMEN / Unknown Lab Venipuncture / Unknown 09/17/2023 12:47 PM CDT 09/17/2023 1:14 PM CDT Ferny Carreon MD LAB - CHEMISTRY ORDERABLES [facility]) [address] [place] [address] * SS-B (SJOGREN'S) ANTIBODY (09/17/2023 12:47 PM CDT) SS-B Antibody 1 0 - 40 AU/mL 09/19/2023 3:14 PM CDT [facility] ([facility]) Comment: INTERPRETIVE INFORMATION: SSB (La) (KATERYNA) [...] (PSS) also have this antibody. Performed By: [facility] [address] [place] [address] Recreation Adviser: Henrique Myles MD, PhD CLIA Number: [id number] Blood BLOOD SPECIMEN / Unknown Lab Venipuncture / Unknown 09/17/2023 12:47 PM CDT 09/17/2023 1:15 PM CDT Ferny Carreon MD LAB - CHEMISTRY ORDERABLES [facility]) [address] [place] [address], [facility] * SS-A (SJOGREN'S) 52+60 ANTIBODIES (09/17/2023 12:47 PM CDT) SS-A 52 Antibody 7 0 - 40 AU/mL 09/19/2023 7:05 AM CDT [facility] ([facility]) Comment: INTERPRETIVE INFORMATION: SSA-52 (Ro52) (KATERYNA) [...] - 40 AU/mL 09/19/2023 7:05 AM CDT [facility] ([facility]) Comment: REFERENCE INTERVAL: SSA-60 (Ro60) (KATERYNA) Antibody, IgG ??29 AU/mL or Less ............. Negative ??30 - 40 AU/mL ................ Equivocal ??41 AU/mL or Greater .......... Positive Performed By: [facility] [address] [place] [address] Recreation Adviser: Henrique Myles MD, PhD CLIA Number: [id number] Blood BLOOD SPECIMEN / Unknown Lab Venipuncture / Unknown 09/17/2023 12:47 PM CDT 09/17/2023 1:14 PM CDT Narrative Authorizing Provider Result Devyn Carreon MD LAB - CHEMISTRY ORDERABLES [facility] ([facility]) [address] [place] [address], [facility] * RHEUMATOID FACTOR BLOOD QUANTITATIVE (09/17/2023 12:47 PM CDT) Rheumatoid Factor <15 <30 IU/mL 09/17/2023 1:51 PM CDT [facility] Rheumatoid Factor Screen Negative Negative 09/17/2023 1:51 PM CDT [facility] Blood BLOOD SPECIMEN / Unknown Lab Venipuncture / Unknown 09/17/2023 12:47 PM CDT 09/17/2023 1:15 PM CDT Narrative Authorizing Provider Result Devyn Carreon MD LAB - CHEMISTRY ORDERABLES [address] [address], [facility] [phone] * TSH REFLEX FREE T4 (09/17/2023 12:47 PM CDT) Pathologist [facility] TSH 2.067 0.350 - 4.940 uIU/mL 09/17/2023 2:12 PM CDT [facility] Blood BLOOD SPECIMEN / Unknown Lab Venipuncture / Unknown 09/17/2023 12:47 PM CDT 09/17/2023 1:17 PM CDT Narrative Authorizing Provider Result Devyn Carreon MD LAB - CHEMISTRY ORDERABLES [address] [address], [facility] [phone] documented in this encounter Visit Diagnoses Diagnosis Polyneuropathy associated with underlying disease (HCC)- Primary documented in this encounter Care Teams Supervisor Industrial Arts Education Relationship Specialty Start Date End Date Nguyễn Bingham MD [address] [place] [address] [place] [address] PCP - General Family Medicine 07/03/23 documented as of this encounter
--- OUTSIDE RECORDS SUMMARY | 2024-06-08 00:02 | XMS_ITS | Encounter Summary ---
Author Organization [facility] Address [address] [place] [address] Care Team Providers Care Institute Scientist Name Role Phone Nguyễn Bingham MD Primary Care Provider [phone] Encounter Details Date Type Department Care Team (Late st Contact Info) Description 10/08/2023 8:15 AM CDT Office Visit [facility] - Urology [address] [place] [address] [address] [place] [id number] Emmanuelle Covington M, DO [address] [address] Urinary frequency (Primary Dx); Nocturia; Urinary urgency [...] Sign Reading Time Taken Comments Blood Pressure 125/79 10/08/2023 8:33 AM CDT Pulse 88 10/08/2023 8:33 AM CDT Temperature 36.7 ??C (98.1 ??F) 10/08/2023 8:33 AM CD T Respiratory Rate 20 10/08/2023 8:33 AM CDT Oxygen Saturation 94% 10/08/2023 8:33 AM CDT Inhaled Oxygen Concentration - - Weight 164.7 kg (363 lb) 10/08/2023 8:33 AM CDT Height 190.5 cm (6' 3 ) 10/08/2023 8:33 AM CDT Body Mass Index 45.37 10/08/2023 8:33 AM CDT documented in this encounter Progress Notes * Pau Hawkins RN - 10/14/2023 8:27 AM CDT Discussed VIKOR results with patient. He will be treated with fluconazole. * Annamarie Snow RN - 10/08/2023 4:10 PM CDT Vikor culture sent. * Emmanuelle Covington DO - 10/08/2023 8:45 AM CDT [facility] Division of Urologic Surgery Emmanuelle Covington DO Date of Visit: 10/08/2023 Patient Name: Rene Hyatt : 1980 Medical Record: [id number] Contact (home) Age: [age] year old Sex: [...] he isn't taking good care of himself. Past Medical History; No past medical history on file. Past Surgical History: Past Surgical History: Procedure Laterality Date Cyst Removal 2022 scrotum Current Medications: Current Outpatient Medications Medication Sig Dispense Refill acetaminophen (Tylenol) 500 MG tablet Take 1 (one) tablet by mouth every 6 hours as needed Alcohol Swabs (Alcohol Prep) PADS njisnga-masawjuzpnrro-cskwikob 250-250-65 MG tablet Take 1 (one) tablet by mouth once daily as needed (Patient not taking: Reported on 10/08/2023) atorvastatin (Lipitor) 20 MG tablet Take 1 (one) tablet by mouth once daily atorvastatin (Lipitor) 20 MG tablet (Patient not taking: Reported on 10/08/2023) Baqsimi One Pack 3 MG/DOSE POWD (Patient not taking: Reported on 10/08/2023) buPROPion XL 24hr (Wellbutrin-XL) 150 MG tablet Take 1 (one) tablet by mouth once daily (Patient not taking: Reported on 10/08/2023) 90 tablet 4 calcium carbonate (Os-Wilfredo 500) 1250 (500 Ca) MG tablet Take 1 (one) tablet by mouth once daily cephalexin (Keflex) 500 MG capsule (Patient not taking: Reported on 10/08/2023) cyanocobalamin (Vitamin B-12) injection (Patient not taking: Reported on 10/08/2023) doxycycline hyclate (Vibramycin) 100 MG capsule (Patient not taking: Reported on 10/08/2023) famotidine (Pepcid) 40 MG tablet Take 1 (one) tablet by mouth at bedtime ferrous sulfate 325 (65 FE) MG tablet fluconazole (Diflucan) 200 MG tablet fluconazole (Diflucan) 200 MG tablet (Patient not taking: Reported on 10/08/2023) furosemide (Lasix) 20 MG tablet gabapentin (Neurontin) 100 MG capsule Take 1 [...] tablet (Patient not taking: Reported on 10/08/2023) mupirocin (Bactroban) 2 % ointment (Patient not [...] not taking: Reported on 10/08/2023) TRUEplus Pen [place] 31G X 5 MM needle Trulicity 1.5 MG/0.5ML injection vitamin D, ergocalciferol, (Drisdol) 1.25 MG (22748 UT) capsule No current facility-administered medications for [...] onset T1DM Physical Exam: Vital Signs: BP 125/79 (BP Location: Left arm, Patient Position: Sitting, BP Cuff Size: Large adult) Pulse 88 Temp 98.1 ??F (36.7 ??C) (Temporal) Resp 20 Ht 1.905 m (6' 3 ) Wt (!) 164.7 kg (363 lb) SpO2 94% Gen: Alert and oriented x3 Head: normocephalic Lungs: Non-labored respirations Heart: RRR Abd: soft, nontender, nondistended : no CVA tenderness, no suprapubic pain MSK: normal gait and strength Skin: No rashes PVR per bladder scanner: 167ml Imaging (images and reports reviewed): Laboratory Studies: Office Visit on 10/08/23 URINALYSIS AUTO - POINT OF CARE (AMB) [facility] Result Value Ref Range Glucose UA +- 5 Bilirubin UA POCT neg Ketones UA POCT neg Specific [place] UA 1.030 Blood Urine POCT +- 10 pH UA 6.0 Protein UA 2+ 1.0 Urobilinogen UA 3.5 Nitrite UA neg WBC UA neg Microbiology: No growth 07/31/23 Pathology: NA Diagnosis: BPH, nocturia, frequency, urgency, low testosterone Recommendations: -continue flomax -patient to be fitted for CPAP. Educated that often once you are sleeping better and WEST is treated, many symptoms of low T also get better and testosterone will improve. Plan for rechecking testosterone 3 months after wearing CPAP well. Educated regarding Testosterone replacement therapy and what it entails. He agrees to wait until doing CPAP. RTC for cysto to rule out stricture or obstruction from prostate. He is very young to have an obstructing prostate. -behavioral changes discussed including continuing to decrease soda intake and lifestyle modifications Talked extensively about treating his body better, taking better care of himself,e tc. Diamante Medellin, MS4 10/08/2023 9:24 AM I have verified the documentation of the Medical student, including all history, exam, and medical decision-making details. I have personally performed a physical exam and have personally reviewed the data to support my medical decision-making as outlined in the student's note, and I arrive independently at the same conclusion. Date of Service: 10/08/2023 Emmanuelle Covington DO documented in this encounter Procedure Notes * Carol Bowman LPN - 10/08/2023 8:53 AM CDTAssociated Order(s): PROC BLADDER SCAN Procedure(s): FL MSR PVR U&/BLADD CAPCTY US NON Pre-Procedure Diagnose(s): Urinary frequency 167 mL documented in this encounter Plan of Treatment Not on file documented as of this encounter Procedures Procedure Name Priority Date/Time Associated Diagnosis Comments FL MSR PVR U&/BLADD CAPCTY US NON Routine 10/08/2023 8:53 AM CDT Urinary frequency URINALYSIS AUTO - POINT OF CARE (AMB) [facility] Routine 10/08/2023 8:52 AM CDT Urinary frequency documented in this encounter Results * FL MSR PVR U&/BLADD CAPCTY US NON (10/08/2023 8:53 AM CDT) Narrative Carol Bowman LPN - 10/08/2023 8:53 AM CDT Carol Bowman LPN ? 10/15/2023 ??1:15 PM 167 mL Emmanuelle Covington DO PROCEDURE/MINOR LOWE RGICAL ORDERABLES * URINALYSIS AUTO - POINT OF CARE (AMB) [facility] (10/08/2023 8:52 AM CDT) Glucose UA +- [address] [facility] [address] Bilirubin UA POCT neg [facility] [address] Ketones UA POCT neg [facility] [address] Specific [place] UA 1.030 [facility] [address] [...] LAB - POINT OF CAR E ORDERABLES [facility] [address] [place] [address], [place] [phone] documented in this encounter Visit Diagnoses Diagnosis Urinary frequency- Primary Nocturia Urinary urgency Urgency of urination documented in this encounter Care Teams Institute Scientist Relationship Specialty Start Date End Date Nguyễn Bingham MD [address] [place] [id number] PCP - General Family Medicine 07/03/23 documented as of this encounter
--- OUTSIDE RECORDS SUMMARY | 2024-06-08 00:02 | XMS_ITS | Clinical Summary ---
Author Organization [facility] Address Formerly [facility]. [place], [place] [address] [place] [id number] Care Team Providers Care Ratoprinter Name Role Phone Herb Burden MD Primary Care Provider + Allergies No known active allergies Medications aspirin-acetami nophen-caffeine (EXCEDRIN MIGRAINE) 250-250-65 MG tablet Take 1 tablet by mouth. Active Glucose Blood ([employer] BLOOD GLUCOSE TEST) test strip Use as directed up to four times a day. 3 Active vitamin D3, cholecalciferol , 1.25 mg capsuleIndicati ons:Vitamin D deficiency Take 1 capsule (50,000 Units total) by mouth 2 (two) times a week. 8 capsule 2 3 Active Isopropyl Alcohol 70 % MiscIndications :Type 1 diabetes mellitus with foot ulcer (CMS/HCC HHS/HCC) Use with injections and blood glucose checks 400 each 3 3 Active Lancets (ONETOUCH DELICA PLUS [id number]) MiscIndications :Type 1 diabetes mellitus with foot ulcer (CMS/HCC HHS/HCC) 1 each by Does not apply route 4 (four) times daily. 400 each 3 3 Active cephALEXin (KEFLEX) 500 MG capsuleIndicati ons:Paronychia of second toe of right foot 2 po bid 40 capsule 3 Active potassium chloride CR (KLOR-CON M20) 20 MEQ tabletIndicatio ns:Hypokalemia Take 1 tablet (20 mEq total) by mouth daily. 30 tablet 3 Active dulaglutide (TRULICITY) 1.5 MG/0.5ML injectionIndica tions:Diabetes Mellitus Inject 1.5 mg into the skin once a week. Indications: Diabetes 2 mL 2 3 Active insulin glargine (LANTUS SOLOSTAR) 100 UNIT/ML injection (PEN)Indication s:Type 1 diabetes mellitus with foot ulcer (CMS/HCC HHS/HCC) Inject 20 Units into the skin daily. 12 mL 5 3 Active Insulin Lispro w/ Trans Port 100 UNIT/ML Solution Pen-injectorInd ications:Type 1 diabetes mellitus with foot ulcer (CMS/HCC HHS/HCC) Inject 10 Units into the skin 3 (three) times daily. 3 mL 5 3 Active Insulin Pen Needle (TRUEPLUS PEN NEEDLES) 31G X 5 MM MiscIndications :Type 1 diabetes mellitus with foot ulcer (CMS/HCC HHS/HCC) Use with insulin pens 100 each 5 3 Active metFORMIN (GLUCOPHAGE) 1000 MG tabletIndicatio ns:Type 1 diabetes mellitus with foot ulcer (CMS/HCC HHS/HCC) Take 0.5 tablets (500 mg total) by mouth 2 (two) times daily. 30 tablet 2 3 Active pantoprazole EC (PROTONIX) 40 MG tabletIndicatio ns:Type 1 diabetes mellitus with foot ulcer (CMS/HCC HHS/HCC) Take 1 tablet (40 mg total) by mouth daily. 30 tablet 4 Active oyster shell calcium 500 mg, elemental, (OSCAL) 500 MG tabletIndicatio ns:Vitamin D deficiency Take 1 tablet (500 mg total) by mouth daily. 30 tablet 4 Active losartan (COZAAR) 25 MG tabletIndicatio ns:Type 1 diabetes mellitus with foot ulcer (CMS/HCC HHS/HCC) Take 1 tablet (25 mg total) by mouth daily. 30 tablet 4 Active vitamin D2, ergocalciferol, (DRISDOL) 1.25 mg capsule Take 1 capsule (1.25 mg total) by mouth every 7 days. 3 Active ferrous sulfate, 65 mg elemental, 325 (65 FE) MG tablet Take 1 tablet (325 mg total) by mouth. 3 Active tamsulosin (FLOMAX) 0.4 MG Cap Take 1 capsule (0.4 mg total) by mouth daily. 4 Active insulin lispro, 1 Unit Dial, (HUMALOG) 100 UNIT/ML injection (PEN) Inject 10 Units into the skin 3 (three) times daily before meals. 4 Active losartan (COZAAR) 50 MG tablet Take 1 tablet (50 mg total) by mouth daily. 4 Active atorvastatin (LIPITOR) 20 MG tabletIndicatio ns:Type 1 diabetes mellitus with foot ulcer ([facility]) take one tablet by mouth every day 90 tablet 1 4 Active Active Problems Problem Noted Date Diagnosed Date Hypertension 03/16/2023 Overview (04/01/2023): Last Assessment & Plan: Blood pressure modestly elevated. - elect DEBBI/ARB in DM (ACR 44) > start losartan 03/17 Diabetic foot ulcer ([facility]) 03/10/2023 Overview (04/01/2023): Last Assessment & Plan: Wound to planter [...] diabetic shoes with custom offloading inserts for watermaster sheogear - Heel strike shoe is causing the patient difficulty walking, collaborating with PT, nursing, DM re: solutions - collab w/ PT, ordered shoe for right foot to assist with balance / walking > mobility improved T1DM (type 1 diabetes mellitus) ([facility] ) 03/10/2023 Overview (04/01/2023): Presented on this admission in DKA with [...] SC q weekly Vitamin D deficiency 03/10/2023 Overview (04/01/2023): Last Assessment & Plan: Undetectable Vit D Level - continue vit d 50k international units twice weekly x 2 months and calcium supplementation for x3 months. 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 PT denies SIRS. With neutrophilic leukocytosis and elevated inflammatory markers. CTAP w contrast w/ scrotal soft tissue thickening and subQ fluid / air suggesting abscess. S/p OR 03/06 with urology and ACCS for I&D of abscess and debridement. No tracking to rectum. S/p wound vac placement with urology. 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 Op cultures 03/06 growing strep anginosus and mixed organisms. ID consulted and recommend treatment with unasyn. - Bcx NGTD - Urology following > s/p OR 03/12 with urology with debridement of wound, wound closure and drain placed. - wound care recs: if drainage change dressing BID or PRN. If no drainage can be uncovered or have dressing as pt preference - Op culture 03/10 growing mixed organisms and teodoro glabrata susceptibility to fluconazole - continue Unasyn (03/09-), Micafungin 100 mg IV (03/15-) > Plan for 14d (End date 03/28) > May transition to Augmentin 875/125 BID and Fluconazole 800mg every day at discharge. - Urology removed drain Family History Medical History Relation Comments Pancreatic cancer Father Diabetes Mother Relation Status Comments Father Mother Social History Tobacco Use Types Packs/Day Years Used Date Smoking Tobacco: Never Passive Smoke Exposure: Never Smokeless Tobacco: Never Tobacco Cessation:Counseling Given: No PHQ-2 Answer Date Recorded Patient Health Questionnaire-2 Score 2 04/27/2023 Sex and Gender Information Value Date Recorded Sex Assigned at Not on file Legal Sex Male 5:25 PM CDT Gender Identity Not on file Sexual Orientation Not on file Last Filed Vital Signs Vital Sign Reading Time Taken Comments Blood Pressure 158/82 07/22/2023 3:00 AM ELECTRICAL MACHINIST Pulse 89 07/22/2023 1:35 AM ELECTRICAL MACHINIST Temperature 36.4 ??C (97.5 ??F) 07/21/2023 9:50 PM CS T Respiratory Rate 20 07/22/2023 1:35 AM ELECTRICAL MACHINIST Oxygen Saturation 97% 07/22/2023 3:00 AM ELECTRICAL MACHINIST Inhaled Oxygen Concentration - - Weight 172.4 kg (380 lb) 07/21/2023 9:50 PM ELECTRICAL MACHINIST Height 198.1 cm (6' 6 ) 07/21/2023 9:50 PM ELECTRICAL MACHINIST Body Mass Index 43.91 07/21/2023 9:50 PM ELECTRICAL MACHINIST Plan of Treatment Health Maintenance Due Date Last Done Comments Colorectal Cancer Screening Colonoscopy (10 Years) 1979 Kidney Health Evaluation 1979 Lipid Panel 1979 Annual Physical 1982 Pneumococcal Vaccine: Pediatrics (0 to 5 Years) and At-Risk Patients (6 to 64 Years) (1 of 2 - PCV) 1985 Diabetes: Retinopathy Eye Exam 1997 Hepatitis C 1997 DTaP, Tdap and Td Vaccines (1 - Tdap) 1998 Hepatitis B Vaccines (1 of 3 - 19+ 3-dose series) 1998 COVID-19 Vaccine (1 - 2023- season) 2024 Influenza Adult (#1) 2024 03/11/2023 Hemoglobin A1C 03/18/2024 09/17/2023, 04/09, 03/06/2023, Additional history exists HPV Vaccines Aged Out No longer eligi ble based on patient's age to complete this topic Meningococcal Vaccine Aged Out No bella wilber eligible based on patient's age to complete this topic RSV Immunizations Under 20 Months Aged Out No longer eligible based on patient's age to complete this topic Procedures Procedure Name Priority Date/Time Associated Diagnosis Comments HEMOGLOBIN, GLYCOSYLATED Routine 04/27/2023 8:07 AM ELECTRICAL MACHINIST Type 1 diabetes mellitus with foot ulcer ([facility]) from Last 3 Months or Most Recently Relevant to Health Maintenance Results * (ABNORMAL) HEMOGLOBIN, GLYCOSYLATED (04/27/2023 8:07 AM ELECTRICAL MACHINIST) HGB A1C 7.7(H) <5.7 % 04/27/2023 2:01 PM ELECTRICAL MACHINIST [facility] Comment: ADA GUIDELINES 2010 5.7 TO 6.4% INCREASED RISK OF DIABETES > OR = 6.5% CONSISTENT WITH DIABETES TESTING PERFORMED AT [address] ??[id number] ESTIMATED AVG GLUCOSE 174 mg/dL 04/27/2023 2:01 PM ELECTRICAL MACHINIST [facility] 04/27/2023 8:07 AM ELECTRICAL MACHINIST Herb Burden MD LABORATORY Final Re sult [facility] [address] [place] [address], [place] [phone] from Last 3 Months or Most Recently Relevant to Health Maintenance Insurance MEDICAID [place] Care Teams Ratoprinter Relationship Specialty Start Date End Date Herb Burden MD [address] [facility] [address] [place] [address] PCP - General FAMILY PRACTICE 02/26/23
--- OUTSIDE RECORDS SUMMARY | 2024-06-08 00:02 | XMS_ITS | Encounter Summary ---
Author Organization [facility] Address [address] [place] [address] Care Team Providers Care Medical Records Technician Name Role Phone Nguyễn Binhgam MD Primary Care Provider [phone] Encounter Details Date Type Department Care Team (Latest Contact Info) Description 10/21/2023 Travel Social History Tobacco Use Types Packs/Day [...] filedocumented in this encounter Care Teams Medical Records Technician Relationship Specialty Start Date End Date Nguyễn Bingham MD [address] [facility] [address] [place] [address] PCP - General Family Medicine 07/03/23 documented as of this encounter
--- OUTSIDE RECORDS SUMMARY | 2024-06-08 00:02 | XMS_ITS | Encounter Summary ---
Author Organization [facility] Address [address] [facility] [place] [address] Care Team Providers Care Prover Name Role Phone Nguyễn Bingham MD Primary Care Provider [phone] Encounter Details Date Type Department Care Team (Late st Contact Info) Description 07/24/2023 Orders Only [facility] - Urology [address] [place] [address] [address] [place] [address] Cassandra Moore, HIDE CURER-CAN TESTER [address] [facility] [place] [address] Urinary frequency Social History Tobacco Use Types Packs/Day Years Used Date Smoking Tobacco: Never Smokeless Tobacco: Never Alcohol Use Standard Drinks/Week Comments Never 0 (1 standard drink = 0.6 oz pur e alcohol) Sex and Gender Information Value Date Recorded Sex Assigned at Not on file Gender Identity Not on file Sexual Orientation Not on file documented as of this encounter Plan of Treatment Scheduled Orders Name Type Priority Associated Diagnoses Orde r Schedule CULTURE URINE Microbiology Routine Urinary frequency 1 Occurrences starting 07/24/2023 until 08/17/2024 documented as of this encounter Visit Diagnoses Diagnosis Urinary frequency- Primary documented in this encounter Care Teams Prover Relationship Specialty Start Date End Date Nguyễn Bingham MD [address] [facility] [address] [place] [address] PCP - General Family Medicine 07/03/23 documented as of this encounter
--- OUTSIDE RECORDS SUMMARY | 2024-06-08 00:02 | XMS_ITS | Encounter Summary ---
Author Organization [facility] Address [address] [facility] [place] [address] Care Team Providers Care Plant Utilities Engineer Name Role Phone Nguyễn Bingham MD Primary Care Provider [phone] Reason for Visit * Reason Onset Date Comments Results 07/24/2023 Encounter Details Date Type Department Care Team (Late st Contact Info) Description 07/24/2023 Telephone [facility] - Urology [address] [place] [address] [address] [place] [address] Cassandra Moore APRN-CNP [address] [facility] [place] [address] Results Social History Tobacco Use Types Packs/Day Years Used Date Smoking Tobacco: Never Smokeless Tobacco: Never Alcohol Use Standard Drinks/Week Comments Never 0 (1 standard drink = 0.6 oz pur e alcohol) Sex and Gender Information Value Date Recorded Sex Assigned at Not on file Gender Identity Not on file Sexual Orientation Not on file documented as of this encounter Miscellaneous Notes * Telephone Encounter - Cassandra Moore APRN-CNP - 07/24/2023 2:05 PM BULK PLANT MANAGER Call made to patient about urine culture showing teodoro. Patient does not have any urinary discomfort. Patient will come to clinic for another urine sample next week to confirm. HUMBLE Smith PLANT MANAGER documented in this encounter Plan of Treatment Not on file documented as of this encounter Visit Diagnoses Not on filedocumented in this encounter Care Teams Plant Utilities Engineer Relationship Specialty Start Date End Date Nguyễn Bingham MD [address] [place] [address] PCP - General Family Medicine 07/03/23 documented as of this encounter
--- OUTSIDE RECORDS SUMMARY | 2024-06-08 00:02 | XMS_ITS | Encounter Summary ---
Author Organization [facility] Address [address] [place] [address] Care Team Providers Care Neuroscience Specialist Name Role Phone Nguyễn Bingham MD Primary Care Provider [phone] Encounter Details Date Type Department Care Team (Latest Contact Info) Description 12/24/2023 Travel Social History Tobacco Use Types Packs/Day [...] on filedocumented in this encounter Care Teams Neuroscience Specialist Relationship Specialty Start Date End Date Nguyễn Bingham MD [address] [facility] 3 [place] [address] PCP - General Family Medicine 07/03/23 documented as of this encounter
--- OUTSIDE RECORDS SUMMARY | 2024-06-08 00:02 | XMS_ITS | Encounter Summary ---
Author Organization [facility] Address [address] [facility] [place] [address] Care Team Providers Care Bellmaker Name Role Phone Nguyễn Bingham MD Primary Care Provider [phone] Reason for Referral * PT/OT/ST (Routine) - Closed Specialty Diagnoses / Procedures Referred By Contac t Referred To Contact Physical Therapist Diagnoses Chronic bilateral low back pain without sciatica Mirta Santos APRN-CNP [address] [place] [id number] Referral ID Status Reason Start Date Expiration Date V isits Requested Visits Authorized [id number] Closed Specialty Services Required 10/01/2023 09/30/2024 1 1 Reason for Visit * Reason Comments Establish Care Encounter Details Date Type Department Care Team (Late st Contact Info) Description 10/01/2023 11:00 AM CDT Office Visit [facility] - Internal Med [address] [place] [address], [facility] [place] [address] Class 3 obesity (HCC) (Primary Dx); Vitamin D deficiency; Hypertension, unspecified type; Chronic bilateral low back pain without sciatica; Type 1 diabetes mellitus with other specified complication (HCC); MILTON (generalized anxiety disorder); Proteinuria, unspecified type; Leg swelling Social History Tobacco Use Types Packs/Day Years [...] Sign Reading Time Taken Comments Blood Pressure 158/90 10/01/2023 10:58 AM CDT Pulse 85 10/01/2023 10:58 AM CDT Temperature - - Respiratory Rate 16 10/01/2023 10:5 8 AM CDT Oxygen Saturation 97% 10/01/2023 10: 58 AM CDT Inhaled Oxygen Concentration - - Weight 166.7 kg (367 lb 9.6 oz) 024 10:58 AM CDT Height 193 cm (6' 4 ) 10/01/2023 10:58 AM CDT Body Mass Index 44.75 10/01/2023 10:58 AM CDT documented in this encounter Patient Instructions * Patient Instructions* Mirta Santos APRN-CNP - 10/01/2023 12:58 PM CDT Images from the original note were not included. [email or web address] documented in this encounter Progress Notes * Mirta Santos APRN-CNP - 10/01/2023 11:09 AM CDT [facility] Initial Evaluation CC: Chief Complaint Patient presents with ??? Establish Care History of Present Illness: Rene Hyatt is a 43 year old male with pmh of obesity, neuropathy, back/knee pain, milton, htn, proteinuria - who presents for initial evaluation in [facility]. Highest weight during teen years- close to 500 lbs Patient Goals:lose weight Weight history ? Weight Gain:over the years ? Prior Weight Loss Attempts:weight watchers- not successful ? Impact on QoL: Nutrition Food triggers: eats when anxious, depression, stressed, lonely, bored, angry ? 24 hour recall: garden salad, club sandwich, blueberry scone, oatmeal, LEONOR steak/cheese bagel, cottage cheese, oranges, LEONOR crispy chicken, pizza ? Sugary drinks: used ot drink soda all day long- able to cut down to 1 a day now ? Fast food: yes ? Time and Place of Food Intake:dinner Exercise ? Not much Behavioural/Psychiatric ? Triggers: eats when anxious, depression, stressed, lonely, bored, angry ? Mental Health/Stress: ? PHQ-9:0 ? MILTON-7:0 ? Sleep:6h Social History ? Tobacco: no ? Alcohol: no ? Non-Prescription/Recreational Drug Use:no ? 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 Hobbies: ? Housemates:mom ? Social/Family Dietary Support:mom Past Medical History: Reviewed and updated in [facility] History tab Past Surgical History: Reviewed and updated in Epic History tab Allergies: Reviewed and updated in [facility] Allergies tab Family History: denies FHx MEN, thyroid disease, pancreatic disease Review of Systems: (negative except as stated in HPI) Bolds are positive Gen: Fatigue, unexpected weight change, chills, HEENT: headache, visual changes, blurred vision, glaucoma CV: CP, palpitations, ALLAN, orthopnea, LE swelling Resp: cough, SOB, wheezing GI: nausea, vomiting, constipation, diarrhea, abd pain, h/o pancreatitis, h/o gallbladder disease : h/o Kidney stones Endocrine: polyuria, polydipsia MSK: neck pain, back pain, neck pain, knee pain, other MSK pain Skin: rash, ulceration, itch Psych: depression, anxiety Neuro: syncope, numbness/tingling, h/o seizure Physical Exam: BP 158/90 Pulse 85 Resp 16 Ht 1.93 m (6' 4 ) Wt (!) 166.7 kg (367 lb 9.6 oz) SpO2 97% Wt Readings from Last 3 Encounters: 10/01/23 (!) 166.7 kg (367 lb 9.6 oz) 09/17/23 (!) 157.4 kg (347 lb) 07/30/23 (!) 158.3 kg (349 lb) Body mass index is 44.75 kg/m??. Gen: in NAD HEENT: NCAT, EOMI Neck: No JVD Resp: CTAB, no wheezes/rales/rhonchi CV: RRR, no mrg's. Abd: Soft, NT/ND. +BS's Ext: No CCE. Skin: Skin color, texture, turgor normal. No rashes or lesions Neuro: alert/conversational/LUZ Labs: Personally reviewed. No results for input(s): CHOLESTEROL , TRIGLYCERIDE , HDL , LDL , NONHDL in the last 19534 hours. No results for input(s): TRIGLYCERIDE in the last 95623 hours. TSH: HbA1c: Recent Labs Component Name 09/17/23 1247 HGBA1C 6.2* No h/o pancreatitsi in pt of family, no h/o pancreatitis, no h/o GB disease, no h/o thyroid CA in pt of family, no h/o MEN Syndrome Obesogenic Medications: gabapentin Imaging/Other diagnostic testing: Personally reviewed. Assessment & Plan: #obesity -c/b diabetes, milton, htn -Provided CatchMe! Plate handout with instructions to website. -Limit processed/fatty/fried foods. Limit calorie containing beverages: soda, cream/sugar in coffee(coffee ok), milk, energy drinks, etc. Shift caloric intake to earlier in the day (heavier breakfast/lunch, fermentation manager dinner), increase protein with breakfast to promote satiety throughout the day. -Advised at least 30 mins/day aerobic activity along with 2x/week resistance training - diet need improvement -as seating fast food - was able to cut down on soda- continue and stop - need to add purposful physical activity daily- walkign is a great start - will add wellbutrin- to help with mood and weight - continue trulicity- and insulin and f/u with endocrinology -f/u in 3 month # t1dm - eye dr bro coming up - trulicity- was strated per [facility] 1.5 mg-tolerated well cmp- completed 2 weeks ago-reviewed - metfromin 1000 daily, humalog 10 units tid with meals, lantus 20 uniyts hs -fasting bs 130-140 statin -follow up with endocrinology-has an bro coming up -was able to cut soda down from multiple bottles a day to just one - keep working on stopping soda and swithcing it to diet - if fasting bs stays elevated- may need to increase insulin-need to f/u with pcp on management # milton - no energy, cravings, depression- as stress at home- takes care of mother and undergoing a lot of issues with his own health - will try wellbutrin to help with depression and cravings- rx sent #proteinuria # htn - following with nephrology - losartan -elevated in the office- needs to montior at home and notify nehprology for furtehr management # polyneuropathy - following with neurology - fabi - obesogenic- aware # leg swelling - mira Santos APRN-YVETTE Department of General Internal Medicine * Shanon Bustamante - 10/01/2023 10:59 AM CDT Neck 46cm Waist +10cm documented in this encounter Plan of Treatment Scheduled Referrals Name Type Priority Associated Diagnoses Order Schedule Ref to Physical Therapy - [facility] PT Outpatient Referral Routine Chronic bilateral low back pain without sciatica 1 Occurrences starting 10/01/2023 until 09/30/2024 documented as of this encounter Visit Diagnoses Diagnosis Class 3 obesity- Primary Vitamin D deficiency Hypertension, unspecified type Chronic bilateral low back pain without sciatica Type 1 diabetes mellitus with other specified complication (HCC) MILTON (generalized anxiety disorder) Generalized anxiety disorder Proteinuria, unspecified type Leg swelling Swelling of limb documented in this encounter Care Teams Bellmaker Relationship Specialty Start Date End Date Nguyễn Bingham MD [address] [place] [address] PCP - General Family Medicine 07/03/23 documented as of this encounter
--- OUTSIDE RECORDS SUMMARY | 2024-06-08 00:02 | XMS_ITS | Encounter Summary ---
Author Organization [facility] Health Address [address] [place] [address] Care Team Providers Care Piece Marker Small Arms Name Role Phone Nguyễn Bingham MD Primary Care Provider [phone] Encounter Details Date Type Department Care Team (Late st Contact Info) Description 07/31/2023 Orders Only [facility] - Urology [address] [place] [address] [address] [place] [address] Cassandra Moore, RETAIL LINK ANALYST-E LEARNING SPECIALIST [address] [facility] DEPT [place] [address] Social History Tobacco Use Types Packs/Day Years [...] Procedure Name Priority Date/Time Associated Diagnosis Comments CULTURE URINE 07/31/2023 11:00 PM BODY WORK AUTO TRIMMER documented in this encounter Results * CULTURE URINE (07/31/2023 11:00 PM BODY WORK AUTO TRIMMER) Culture [facility] Comment: ??CULTURE, URINE, ROUTINE ?Micro Number: ?[id number] ??Test Status: ? Final ??Specimen Source: ?? Urine ??Specimen Quality: ??Adequate ??Result: ?No Growth NO COLLECTION DATE RECEIVED. WE HAVE USED THE DATE THE SPECIMEN WAS RECEIVED BY THIS LABORATORY THE COLLECTION DATE. IF THIS IS INCORRECT, PLEASE CONTACT CLIENT SERVICES. PHONE NUMBER: [phone] Test Performed at: [facility] ??[id number] GLADIS GAMEZ MD 07/31/2023 4:2 2 AM BODY WORK AUTO TRIMMER Cassandra Moore RETAIL LINK ANALYST-E LEARNING SPECIALIST LAB - MICROBIOL OGY ORDERABLES [facility] [address] [place] [address] documented in this encounter Visit Diagnoses Not on filedocumented in this encounter Care Teams Piece Marker Small Arms Relationship Specialty Start Date End Date Nguyễn Bingham MD [address] [place] [address] PCP - General Family Medicine 07/03/23 documented as of this encounter
--- OUTSIDE RECORDS SUMMARY | 2024-06-08 00:02 | XMS_ITS | Encounter Summary ---
Author Organization [facility] Health Address [address] [facility] [address] [place] [address] Care Team Providers Care Acid Adjuster Name Role Phone Nguyễn Bingham MD Primary Care Provider [phone] Encounter Details Date Type Department Care Team (Latest Contact Info) Description 10/29/2023 Travel Social History Tobacco Use Types Packs/Day [...] on filedocumented in this encounter Care Teams Acid Adjuster Relationship Specialty Start Date End Date Nguyễn Bingham MD [address] [facility] 3 [place] [address] PCP - General Family Medicine 07/03/23 documented as of this encounter
--- OUTSIDE RECORDS SUMMARY | 2024-06-08 00:02 | XMS_ITS | Encounter Summary ---
Author Organization [facility] Health Address [address] [facility] [address] Care Team Providers Care Sweat Box Attendant Name Role Phone Nguyễn Bingham MD Primary Care Provider [phone] Reason for Visit * Reason Onset Date Comments Reschedule Appointment 02/02/2024 Can be re scheduled with Dr. Meeta Gilbert or Dr. Covington next available. Encounter Details Date Type Department Care Team ([facility] st Contact Info) Description 02/02/2024 Telephone [facility] - Centralized Scheduling [address] [place] [address] Emmanuelle Covington M, DO [address] [place] [address] Reschedule Appointment (Can be rescheduled with Dr. Meeta Gilbert or Dr. Covington next available./) Social History Tobacco Use Types Packs/Day Years [...] on filedocumented in this encounter Care Teams Sweat Box Attendant Relationship Specialty Start Date End Date Nguyễn Bingham MD [address] [facility] 3 [place] [address] PCP - General Family Medicine 07/03/23 documented as of this encounter
--- OUTSIDE RECORDS SUMMARY | 2024-06-08 00:02 | XMS_ITS | Encounter Summary ---
Author Organization [facility] Health Address [address] [place] [address] Care Team Providers Care Manufacturing Engineering Technician Name Role Phone Nguyễn Bingham MD Primary Care Provider [phone] Encounter Details Date Type Department Care Team (Latest Contact Info) Description 10/08/2023 Travel Social History Tobacco Use Types Packs/Day [...] on filedocumented in this encounter Care Teams Manufacturing Engineering Technician Relationship Specialty Start Date End Date Nguyễn Bingham MD [address] [facility] 3 [place] [address] PCP - General Family Medicine 07/03/23 documented as of this encounter
--- OUTSIDE RECORDS SUMMARY | 2024-06-08 00:02 | XMS_ITS | Encounter Summary ---
Author Organization [facility] Health Address [address] [place] [address] Care Team Providers Care Automation Tester Name Role Phone Nguyễn Bingham MD Primary Care Provider [phone] Encounter Details Date Type Department Care Team (Latest Contact Info) Description 10/12/2023 Travel Social History Tobacco Use Types Packs/Day [...] on filedocumented in this encounter Care Teams Automation Tester Relationship Specialty Start Date End Date Nguyễn Bingham MD [address] [facility] 3 [place] [address] PCP - General Family Medicine 07/03/23 documented as of this encounter
--- OUTSIDE RECORDS SUMMARY | 2024-06-08 00:02 | XMS_ITS | Encounter Summary ---
Author Organization [facility] Health Address [address] [facility] [address] Care Team Providers Care Manager Case Name Role Phone Nguyễn Bingham MD Primary Care Provider [phone] Reason for Visit * Reason Onset Date Comments Reschedule Appointment 10/07/2023 I attempt ed to contact patient to reschedule appointment. The patient's mother answered the phone and stated that patient was unavailable. She asked for me to call back in the afternoon. I explained to his mother that I have send a reschedule request to his mychart and offered to provide the call back number. She stated that she was unable to write it down. I will attempt to call back tomorrow. 10/07/23 JL Encounter Details Date Type Department Care Team (Late st Contact Info) Description 10/07/2023 Telephone [facility] - Centralized Scheduling [address] [place] [phone] Nomi Arana MD [facility] [place] [address] Reschedule Appointment (/I attempted to contact patient to reschedule appointment. The patient's mother answered the phone and stated that patient was unavailable. She asked for me to call back in the afternoon. I explained to his mother that I have send a reschedule request to his mychart and offered to provide the call back number. She stated that she was unable to write it down. I will attempt to call back tomorrow. 10/07/23 YO) Social History Tobacco Use Types Packs/Day Years [...] encounter Miscellaneous Notes * Telephone Encounter - Antwan Valdes - 10/07/2023 10:21 AM CDT I attempted to contact patient to reschedule appointment. The patient's mother answered the phone and stated that patient was unavailable. She asked for me to call back in the afternoon. I explained to his mother that I have send a reschedule request to his mychart and offered to provide the call back number. She stated that she was unable to write it down. I will attempt to call back tomorrow. 10/07/23 JLM documented in this encounter Plan of Treatment Not on file documented as of this encounter Visit Diagnoses Not on filedocumented in this encounter Care Teams Manager Case Relationship Specialty Start Date End Date Nguyễn Bingham MD [address] [place] [address] PCP - General Family Medicine 07/03/23 documented as of this encounter
--- OUTSIDE RECORDS SUMMARY | 2024-06-08 00:02 | XMS_ITS | Encounter Summary ---
Author Organization [facility] Health Address [address] [place] [address] Care Team Providers Care Director Of Corporate Real Estate Name Role Phone Nguyễn Bingham MD Primary Care Provider [phone] Reason for Visit * Reason Onset Date Comments Reschedule Appointment 10/08/2023 Third att empt to contact patient to reschedue to next available appointment. Left the reschedule number with patient' mother, Clara, and told her I sent this information to his [employer] account . Appointment cancelled. 10/08/[address] [facility] Encounter Details Date Type Department Care Team (Late st Contact Info) Description 10/08/2023 Telephone [facility] - Centralized Scheduling [address] [place] [address] Nomi Arana MD [facility] [place] [address] Reschedule Appointment (Third attempt to contact patient to reschedue to next available appointment. Left the reschedule number with patient' mother, Clara, and told her I sent this information to his [employer] account . Appointment cancelled. 10/08/23 JL) Social History Tobacco Use Types Packs/Day Years [...] * Telephone Encounter - Antwan Valdes - 10/08/2023 8:39 AM CDT Third attempt to contact patient to reschedue to next available appointment. Left the reschedule number with patient' mother, Clara, and told her I sent this information to his [employer] account . Appointment cancelled. 10/08/23 JLM documented in this encounter Plan of Treatment Not on file documented as of this encounter Visit Diagnoses Not on filedocumented in this encounter Care Teams Director Of Corporate Real Estate Relationship Specialty Start Date End Date Nguyễn Bingham MD [address] [place] [address] PCP - General Family Medicine 07/03/23 documented as of this encounter
--- OUTSIDE RECORDS SUMMARY | 2024-06-08 00:02 | XMS_ITS | Encounter Summary ---
Author Organization [facility] Health Address [address] [place] [address] Care Team Providers Care Glass Or Mirror Inspector Name Role Phone Nguyễn Bingham MD Primary Care Provider [phone] Encounter Details Date Type Department Care Team (Latest Contact Info) Description 07/30/2023 Travel Social History Tobacco Use Types Packs/Day [...] on filedocumented in this encounter Care Teams Glass Or Mirror Inspector Relationship Specialty Start Date End Date Nguyễn Bingham MD [address] [facility] 3 [place] [address] PCP - General Family Medicine 07/03/23 documented as of this encounter
--- OUTSIDE RECORDS SUMMARY | 2024-06-08 00:02 | XMS_ITS | Encounter Summary ---
Author Organization [facility] Address [address] [place] [address] [place] [address] Care Team Providers Care Leak Operator Paraffin Plant Name Role Phone Nguyễn Bingham MD Primary Care Provider [phone] Reason for Referral * Consultation (Routine) - Closed Specialty Diagnoses / Procedures Referred By Padmini t Referred To Contact Weight Management Diagnoses Class 3 severe obesity due to excess calories with serious comorbidity and body mass index (BMI) of 40.0 to 44.9 in adult (HCC) Lux Wayne APRN-CNP [address] [facility] [address]L [place] [address] [place] [address] [facility] [address] [place] [phone] Referral ID Status Reason Start Date Expiration Date V isits Requested Visits Authorized [id number] Closed Specialty Services Required 07/23/2023 07/22/2024 1 1 ER [facility] * Neurology (Routine) - Closed Specialty Diagnoses / Procedures Referred By Contjacqui t Referred To Contact Neurology Diagnoses Syncope, unspecified syncope type Procedures EEG EXTENDED MONITORING > 1 HOUR Lux Wayne APRN-CNP [address] [facility] 1L [place] [address] [facility] Eeg/Emg [address] [place] [address] Referral ID Status Reason Start Date Expiration Date Visits Re quested Visits Authorized [id number] Closed 07/23/2023 07/22/2024 1 1 [facility] * Evaluate (Routine) - Pending Review Specialty Diagnoses / Procedures Referred By Padmini villaseñor Referred To Contact Diagnoses Diabetic peripheral autonomic neuropathy (HCC) Lux Wayne APRN-CNP [address] [place] [address] [address] [place] [address] Referral ID Status Reason Start Date Expiration Date Visits Requested Visits Authorized [id number] Pending Review Specialty Services Required 07/23/2023 07/22/2024 1 1 [facility] * Neurology (Routine) - Closed Specialty Diagnoses / Procedures Referred By Padmini villaseñor Referred To Contact Neurology Diagnoses Diabetic peripheral autonomic neuropathy (HCC) Procedures EMG WITH NERVE CONDUCTION STUDY Lux Wayne APRN-CNP [address] [place] [address] 1[place] [address] [facility] Eeg/Emg [address] [place] [address] Referral ID Status Reason Start Date Expiration Date Visits Re quested Visits Authorized [id number] Closed 07/23/2023 07/22/2024 1 1 [facility] Reason for Visit * Reason Comments Establish Care New pt visit- tremor s Encounter Details Date Type Department Care Team (Late st Contact Info) Description 07/23/2023 1:00 PM LAWYER [employer] Office Visit [facility] - Neurology [address] [place] [address], [place] [address] Lux Wayne APRN-CNP [address] [place] [address] [address] [place] [address] Diabetic peripheral autonomic neuropathy (HCC) (Primary Dx); Syncope, unspecified syncope type; Class 3 severe obesity due to excess calories with serious comorbidity and body mass index (BMI) of 40.0 to 44.9 in adult (HCC) Social History Tobacco Use Types Packs/Day Years [...] Sign Reading Time Taken Comments Blood Pressure 137/85 07/23/2023 12:47 PM LAWYER REAL ESTATE Pulse 86 07/23/2023 12:47 PM LAWYER REAL ESTATE Temperature - - Respiratory Rate - - Oxygen Saturation 99% 07/23/2023 12:47 PM LAWYER REAL ESTATE Inhaled Oxygen Concentration - - Weight 154.7 kg (341 lb) 07/23/2023 12:47 PM LAWYER REAL ESTATE Height 193 cm (6' 4 ) 07/23/2023 12:47 PM LAWYER REAL ESTATE Body Mass Index 41.51 07/23/2023 12:47 PM LAWYER REAL ESTATE documented in this encounter Patient Instructions * Patient Instructions* Lux Wayne APRN-CNP - 07/23/2023 1:45 PM LAWYER [employer]STATE Neuropathy Please get EEG Please get nerve conduction study; please see a neuropathy specialist Please check your blood sugar at night and keep a log and show to PCP Please start Gabapentin 100 mg (1) Three times daily Please see Weight loss clinic Fu as needed ER [facility] documented in this encounter Progress Notes * Lux Wayne APRN-CNP - 07/23/2023 1:13 PM CST Movement Disorder New Patient History & Physical Exam Rene Hyatt Age: [age] year old Date [...] pleasant Sleep: problem, getting a CPAP sooner ALLERGIES: No Known Allergies MEDICATIONS: Current Outpatient Medications Medication Sig ??? acetaminophen (Tylenol) 500 MG tablet Take 1 (one) tablet by mouth every 6 hours as needed ??? Alcohol Swabs (Alcohol Prep) PADS ??? yqdvalf-zytzppjecrhpp-cnsfbrgb 250-250-65 MG tablet Take 1 (one) tablet by mouth once daily as needed ??? atorvastatin (Lipitor) 20 MG tablet ??? Baqsimi One Pack 3 MG/DOSE POWD ??? cephalexin (Keflex) 500 MG capsule ??? doxycycline hyclate (Vibramycin) 100 MG capsule ??? ferrous sulfate 325 (65 FE) MG tablet ??? fluconazole (Diflucan) 200 MG tablet ??? GaviLyte-N with Flavor Pack 420 g solution ??? GoodSense ClearLax 17 GM/SCOOP powder ??? insulin lispro (HumaLOG;ADMelog) 100 UNIT/ML pen ??? Lancets (ONETOUCH DELICA PLUS 33G EXTRA FINE LANCET) ??? Lantus SoloStar pen ??? losartan (Cozaar) 25 MG tablet ??? metFORMIN (Glucophage) 1000 MG tablet ??? mupirocin (Bactroban) 2 % ointment ??? oyster shell calcium 500 MG tablet ??? pantoprazole EC (Protonix) 40 MG tablet Take 1 (one) tablet by mouth once daily ??? pantoprazole EC (Protonix) 40 MG tablet ??? potassium chloride ER (Klor-Con M) 20 MEQ tablet ??? promethazine (Phenergan) 25 MG tablet ??? tamsulosin (Flomax) 0.4 MG capsule Take 1 (one) capsule by mouth once daily At the same time every day after a meal. ??? traMADol (Ultram) 50 MG tablet ??? TRUEplus Pen [place] 31G X 5 MM needle ??? Trulicity 1.5 MG/0.5ML injection ??? vitamin D, ergocalciferol, (Drisdol) 1.25 MG (93454 UT) capsule No current facility-administered medications for this visit. Review of Systems General, Eyes, ENT, Pulmonary, Cardiac, GI, , Neurologic, Psychiatric, Skeletal, Endocrine, Skin:All systems reviewed- negative for symptoms except per HPI Past Medical and Surgical History No past medical history on file. Past Surgical History: Procedure Laterality Date ??? Cyst Removal 2022 scrotum Patient Active Problem List: Anemia Class 3 obesity ([facility]) Diabetic foot ulcer ([facility]) Hypertension T1DM (type 1 diabetes mellitus) ([facility]) Vitamin D deficiency Social History Social History Tobacco Use ??? Smoking status: Never ??? Smokeless tobacco: Never Vaping Use ??? Vaping Use: Never used Substance Use Topics ??? Alcohol use: Never ??? Drug use: Never Examination Vitals Vitals: 07/23/23 1247 BP: 137/85 Pulse: 86 SpO2: 99% Weight: (!) 154.7 kg (341 lb) Height: 1.93 m (6' 4 ) Physical Exam Constitutional General Appearance: in [...] present Muscle Strength: Strength Deltoid Triceps Biceps Visual Associate Iliopsoas Hamstring Quadriceps TA EHL R / 5/5 5/5 5/5 5/ 5/ 5/ 5/ 5/ L /10 10/10 10/10/10 Muscle Tone: Description of the Involuntary Movement: [...] low with hypoglycemia 4. Obesity PLAN: To get EEG To get nerve conduction study; to see a neuropathy specialist To check the blood sugar at night and keep a log and show to PCP To start Gabapentin 100 mg (1) Three times daily To see Weight loss clinic Fu as needed All pertinent questions were answered to patient's satisfaction during this clinical visit. - Call if any questions arise. Patient is to closely follow up with the primary physician for medical needs. Signed Electronically [facility] Department of Neurology 07/23/2023 [facility] documented in this encounter Plan of Treatment Scheduled Orders Name Type Priority Associated Diagnoses Orde r Schedule EMG WITH NERVE CONDUCTION STUDY Neurology Routine Diabetic peripheral autonomic neuropathy (HCC) 1 Occurrences starting 07/23/2023 until 07/23/2024 EEG EXTENDED MONITORING > 1 HOUR Neurology Routine Syncope, unspecified syncope type 1 Occurrences starting 07/23/2023 until 07/23/2024 Scheduled Referrals Name Type Priority Associated Diagnoses Orde r Schedule AMB REFERRAL TO [facility] Outpatient Referral Routine Diabetic peripheral autonomic neuropathy (HCC) 1 Occurrences starting 07/23/2023 until 07/22/2024 AMB REFERRAL TO WEIGHT LOSS CLINIC Outpatient Referral Routine Class 3 severe obesity due to excess calories with serious comorbidity and body mass index (BMI) of 40.0 to 44.9 in adult (HCC) Ordered: 07/23/2023 documented as of this encounter Visit Diagnoses Diagnosis Diabetic peripheral autonomic neuropathy (HCC)- Primary Type II or unspecified type diabetes mellitus with neurological manifestations, not stated as uncontrolled Syncope, unspecified syncope type Class 3 severe obesity due to excess calories with serious comorbidity and body mass index (BMI) of 40.0 to 44.9 in adult (HCC) documented in this encounter Care Teams Leak Operator Paraffin Plant Relationship Specialty Start Date End Date Nguyễn Bingham MD [address] [place] [address] PCP - General Family Medicine 07/03/23 documented as of this encounter
--- OUTSIDE RECORDS SUMMARY | 2024-06-08 00:02 | XMS_ITS | Encounter Summary ---
Author Organization [facility] Health Address [address] [place] [address] Care Team Providers Care Unit Leader Name Role Phone Nguyễn Bingham MD Primary Care Provider [phone] Encounter Details Date Type Department Care Team (Latest Contact Info) Description 09/17/2023 Travel Social History Tobacco Use Types Packs/Day [...] on filedocumented in this encounter Care Teams Unit Leader Relationship Specialty Start Date End Date Nguyễn Bingham MD [address] [facility] 3 [place] [address] PCP - General Family Medicine 07/03/23 documented as of this encounter
--- OUTSIDE RECORDS SUMMARY | 2024-06-08 00:02 | XMS_ITS | Encounter Summary ---
Author Organization [facility] Health Address [address] [facility] [address] [place] [address] Care Team Providers Care Office Coordinator Receptionist Name Role Phone Nguyễn Bingham MD Primary Care Provider [phone] Encounter Details Date Type Department Care Team (Latest Contact Info) Description 07/20/2023 Travel Social History Tobacco Use Types Packs/Day [...] on filedocumented in this encounter Care Teams Office Coordinator Receptionist Relationship Specialty Start Date End Date Nguyễn Bingham MD [address] [facility] 3 [place] [address] PCP - General Family Medicine 07/03/23 documented as of this encounter
--- OUTSIDE RECORDS SUMMARY | 2024-06-08 00:02 | XMS_ITS | Encounter Summary ---
Author Organization [facility] Health Address [address] [place] [address] Care Team Providers Care Interventional Pain Physician Name Role Phone Nguyễn Bingham MD Primary Care Provider [phone] Encounter Details Date Type Department Care Team (Latest Contact Info) Description 11/04/2023 Travel Social History Tobacco Use Types Packs/Day [...] on filedocumented in this encounter Care Teams Interventional Pain Physician Relationship Specialty Start Date End Date Nguyễn Bingham MD [address] [facility] 3 [place] [address] PCP - General Family Medicine 07/03/23 documented as of this encounter
--- OUTSIDE RECORDS SUMMARY | 2024-06-08 00:02 | XMS_ITS | Encounter Summary ---
Author Organization [facility] Health Address [address] [facility] [place] [address] Care Team Providers Care Quality Head Name Role Phone Nguyễn Bingham MD Primary Care Provider [phone] Encounter Details Date Type Department Care Team (Latest Contact Info) Description 07/23/2023 Travel Social History Tobacco Use Types Packs/Day [...] on filedocumented in this encounter Care Teams Quality Head Relationship Specialty Start Date End Date Nguyễn Bingham MD [address] [facility] 3 [place] [address] PCP - General Family Medicine 07/03/23 documented as of this encounter
--- OUTSIDE RECORDS SUMMARY | 2024-06-08 00:02 | XMS_ITS | Encounter Summary ---
Author Organization [facility] Address [address] [place] [address] Care Team Providers Care Relish Blender Name Role Phone Nguyễn Bingham MD Primary Care Provider [phone] Reason for Visit * Neurology (Routine) - Closed Specialty Diagnoses / Procedures Referred By Contac t Referred To Contact Neurology Diagnoses Diabetic peripheral autonomic neuropathy (HCC) Procedures EMG WITH NERVE CONDUCTION STUDY Lux Wayne APRN-YVETTE [address] [facility] [address] [place] [address] [facility] Eeg/Emg [address] [place] [address] Referral ID Status Reason Start Date Expiration Date Visits Re quested Visits Authorized [id number] Closed 07/23/2023 07/22/2024 1 1 Encounter Details Date Type Department Care Team (Latest Contact Info) Description 10/12/2023 8:47 AM CDT - 10/12/2023 11:59 PM CDT Hospital Encounter [facility] EEG/EMG [address] [place] [address] Nomi Arana MD [address] [facility] [address] [place] [address] Discharge Disposition: Home or Self [...] meal. 90 capsule 4 07/16/2023 TRUEplus Pen [place] 31G X 5 MM needle 06/19/2023 aspirin-acetaminoph en-caffeine 250-250-65 MG tablet Take 1 (one) tablet by mouth once daily as needed 11/04/2023 atorvastatin (Lipitor) 20 MG tablet Take 1 (one) tablet by mouth once daily 08/17/2023 11/04/2023 atorvastatin (Lipitor) 20 MG tablet Take 1 (one) tablet by mouth at bedtime 07/02/2023 05/26/2024 Baqsimi One Pack 3 MG/DOSE POWD 03/25/2023 11/04/2023 buPROPion XL 24hr (Wellbutrin-XL) 150 MG tablet Take 1 (one) tablet by mouth once daily 90 tablet 4 10/01/2023 05/26/2024 calcium carbonate (Os-Wilfredo 500) 1250 (500 Ca) MG tablet Take 1 (one) tablet by mouth once daily 05/26/2024 cephalexin (Keflex) 500 MG capsule 04/27/2023 05/26/2024 Cholecalciferol 1.25 MG (36186 UT) Take 50,000 Units by mouth Two times a week 04/01/2023 cyanocobalamin (Vitamin B-12) injection 11/04/2023 doxycycline hyclate (Acticlate) 100 MG tablet Take 1 (one) tablet by mouth 2 times daily 11/04/2023 doxycycline hyclate (Vibramycin) 100 MG capsule 03/02/2023 11/04/2023 famotidine (Pepcid) 40 MG tablet Take 1 (one) tablet by mouth at bedtime 09/02/2023 05/26/2024 fluconazole (Diflucan) 200 MG tablet Take 1 (one) tablet by mouth once daily for 5 days 5 tablet 10/14/2023 10/19/2023 fluconazole (Diflucan) 200 MG tablet Take 1 (one) tablet by mouth once daily for 3 days 3 tablet 10/14/2023 10/14/2023 fluconazole (Diflucan) 200 MG tablet 10/14/2023 fluconazole (Diflucan) 200 MG tablet 03/25/2023 10/14/2023 furosemide (Lasix) 20 MG tablet Take 1 (one) tablet by mouth once daily 05/26/2024 GaviLyte-N with Flavor Pack 420 g solution [...] metFORMIN (Glucophage) 1000 MG tablet 07/01/2023 11/04/2023 metFORMIN (Glucophage) 500 MG tablet TAKE ONE TABLET (500MG) BY MOUTH TWICE DAILY WITH MEALS 10/08/2023 11/04/2023 mupirocin (Bactroban) 2 % ointment 04/28/2023 [...] 03/02/2023 11/04/2023 Trulicity 1.5 MG/0.5ML injection 07/01/2023 vitamin D, ergocalciferol, (Drisdol) 1.25 MG (73719 UT) capsule 06/17/2023 4 documented as of this encounter Procedure Notes * Nomi Arana MD - 10/12/2023 11:59 PM CDTProcedure(s): EMG Images from the original note were not included. [address] [address] Electrodiagnostic testing was explained to the patient, and he/she/they were allowed adequate opportunity to ask questions or discuss EDX testing evaluation. The patient verbalized consent and gave permission for Electrodiagnostic testing. Full Name: Rene Hyatt Procedure #: [id number] Gender: Male Date of : 1980 Visit Date: 10/12/2023 08:55 Age: 43 Years Examining Physician: Nomi Arana MD Referring Physician: EB Sterling Technologist: FRANCOISE Height: 6 feet 4 inch Weight: 355 lbs BMI: 43.3 Reason for Test: Diabetic peripheral autonomic neuropathy SNC Nerve / Sites Rec. Site Onset Lat Peak Lat PP Amp Segments Distance Velocity Temp. ms ms ??V mm m/s ??C R Radial - Anatomical snuff box (Forearm) Forearm Wrist 2.3 3.2 3.4 Forearm - Wrist 100 43 32 Ref. <=2.5 >=15.0 Ref. >=53 R Sural - Ankle (Calf) Calf Ankle NR NR NR Calf - Ankle 140 NR 34.1 Ref. <=4.8 >=5.0 Ref. >=45 L Sural - Ankle (Calf) Calf Ankle NR NR NR Calf - Ankle 140 NR 32.7 Ref. <=4.8 >=5.0 Ref. >=45 MNC Nerve / Sites Muscle Latency Amplitude Segments Lat Diff Distance Velocity ms mV ms mm m/s R Ulnar - ADM Wrist ADM 3.1 7.1 Wrist - ADM 70 Ref. <=3.6 >=5.0 Ref. B.Elbow ADM 8.5 6.3 B.Elbow - Wrist 5.4 240 44 Ref. Ref. >=48 A.Elbow ADM 10.7 6.1 A.Elbow - B.Elbow 2.2 100 45 Ref. Ref. >=48 A.Elbow - Wrist 7.6 R Peroneal - EDB Ankle EDB NR NR Ankle - EDB 80 Ref. <=6.6 >=2.0 Ref. Pop fossa - Ankle NR L Peroneal - EDB Ankle EDB NR NR Ankle - EDB 80 Ref. <=6.6 >=2.0 Ref. Pop fossa - Ankle NR L Tibial - AH Ankle AH NR NR Ankle - AH 80 Ref. <=6.6 >=2.0 Ref. R Tibial - AH Ankle AH NR NR Ankle - AH 80 Ref. <=6.6 >=2.0 Ref. L Peroneal - Tib Ant Fib Head Tib Ant 4.0 3.0 Fib Head - Tib Ant 125 Pop fossa Tib Ant 5.9 3.2 Pop fossa - Fib Head 1.9 80 41 Motor NCS Nerve / Sites Muscle Latency Amplitude Rel Amp Segments Distance Lat Diff Velocity Rel Gilberto Temp. ms mV % mm ms m/s % ??C R Peroneal - Tib Ant Fib Head Tib Ant 3.92 2.5 100 Fib Head - Tib Ant 133 33.3 Pop fossa Tib Ant 6.40 2.5 99.5 Pop fossa - Fib Head 100 2.48 40 100 33.3 L Peroneal - Tib Ant EMG Summary Table Insertional Spontaneous Volitional MUAPs Muscle Nerve Roots Insertional Fib PSW Fasc Duration Amplitude Poly Recruitment R. Tibialis anterior Deep peroneal (Fibular) L4-L5 Normal 1+ None None Sl.Incr. Sl.Incr. Few Reduced R. Gastrocnemius (Medial head) Tibial S1-S2 Normal 2+ None None Normal Normal None Incomp Act R. Vastus medialis Femoral L2-L4 Normal None None None Normal Normal None Normal R. First dorsal interosseous Ulnar C8-T1 Normal 1+ None Few Normal Normal Few Normal R. Extensor indicis proprius Radial C7-C8 Normal None None None Normal Normal None Normal Rene Hyatt [id number] 10/12/2023 08:55 2 of 3 Interpretation: Bilateral sural antidromic sensory nerve conduction studies showed no responses. The right radial antidromic sensory nerve conduction study showed small SNAP amplitude and borderline slowed conduction velocity. The right ulnar motor nerve conduction study recorded from ADM muscles showed normal distal latency, normal CMAP amplitudes and borderline slowed conduction velocities both at the forearm and across the elbow segments. Bilateral peroneal motor nerve conduction studies recorded from EDB muscles showed no responses. However very recorded from tibialis anterior muscles, bilateral peroneal motor nerve conduction studies showed normal distal latencies, low normal CMAP amplitudes and normal conduction velocities. Bilateral tibial motor nerve conduction studies recorded from AH muscles showed no responses. Concentric needle EMG examination of the above listed muscles showed 1+ to 2+ fibs/positive sharp waves in the right tibialis anterior, gastrocnemius, and first dorsal interosseous muscle along with a few long-duration and high amplitude motor unit action potentials associated with reduced recruitment patterns. 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 This conclusion is based on absent sensory and motor responses when recorded from both feet, relatively preserved bilateral peroneal motor responses when recorded from tibialis anterior muscles and a few neurogenic motor unit action potentials associated with reduced recruitment patterns pronounced in distal muscles from the right upper and lower extremities. Note, this study cannot rule out a lumbosacral radicular plexopathy. Clinical and imaging correlations are suggested. MD Rene Murphy [id number] 10/12/2023 08:55 2 of 3 documented in this encounter Plan of Treatment Not on file documented as of this encounter Visit Diagnoses Diagnosis Diabetic peripheral autonomic neuropathy (HCC) Type II or unspecified type diabetes mellitus with neurological manifestations, not stated as uncontrolled documented in this encounter Care Teams Relish Blender Relationship Specialty Start Date End Date Nguyễn Bingham MD [address] [place] [id number] PCP - General Family Medicine 07/03/23 documented as of this encounter
--- OUTSIDE RECORDS SUMMARY | 2024-06-08 00:02 | XMS_ITS | Encounter Summary ---
Author Organization [facility] Address [address] [place] [address] Care Team Providers Care Community Case Manager Name Role Phone Nguyễn Bingham MD Primary Care Provider [phone] Reason for Visit * Reason Onset Date Comments Appointment 08/12/2023 Encounter Details Date Type Department Care Team (Late st Contact Info) Description 08/12/2023 Telephone [facility] - General Surgery [address] [place] [address], [facility] [place] [id number] Pau Hawkins RN Appointment Social History Tobacco Use Types Packs/Day Years [...] encounter Miscellaneous Notes * Telephone Encounter - Pau Hawkins RN - 08/12/2023 12:25 PM CST Patient states he was referred for low T. He was recently seen by Cassandra for LUTS/UTI. Total testosterone result in media was 270 on 07/07/23. Discussed we may need to repeat the lab test and if under normal range, he would be referred to Endocrinology for TRT. CH EXAMINER documented in this encounter Plan of Treatment Not on file documented as of this encounter Visit Diagnoses Not on filedocumented in this encounter Care Teams Community Case Manager Relationship Specialty Start Date End Date Nguyễn Bingham MD [address] [place] [id number] PCP - General Family Medicine 07/03/23 documented as of this encounter
--- OUTSIDE RECORDS SUMMARY | 2024-06-08 00:02 | XMS_ITS | Encounter Summary ---
Author Organization [facility] Address [address] [facility] [place] [address] Care Team Providers Care Senior Mobile Web Developer Name Role Phone Nguyễn Bingham MD Primary Care Provider [phone] Reason for Referral * Independent Medical Evaluation (Routine) - Pending Review Specialty Diagnoses / Procedures Referred By Padmini villaseñor Referred To Contact Diagnoses Diabetic peripheral autonomic neuropathy (HCC) Ferny Carreon MD [address] [place] [phone] Referral ID Status Reason Start Date Expiration Date Visits Requested Visits Authorized [id number] Pending Review Specialty Services Required 08/01/2023 07/31/2024 1 1 [place] STORE ASSISTANT * PT/OT/ST (Routine) - Pending Review Specialty Diagnoses / Procedures Referred By Padmini villaseñor Referred To Contact Diagnoses Diabetic peripheral autonomic neuropathy ([place]) [place] [address] [place] [phone] Referral ID Status Reason Start Date Expiration Date Visits Requested Visits Authorized [id number] Pending Review Specialty Services Required 08/01/2023 07/31/2024 1 1 [place] STORE ASSIST[place] Encounter Details Date Type Department Care Team (Late st Contact Info) Description 07/30/2023 2:00 PM RETAIL STORE ASSISTANT Office Visit [facility] - Neurology [address] [place] [phone] Ferny Carreon MD [address] [place] [address] Diabetic peripheral autonomic neuropathy (HCC) (Primary Dx); Polyneuropathy associated with underlying disease (HCC) Social History Tobacco Use Types Packs/Day [...] Sign Reading Time Taken Comments Blood Pressure 139/85 07/30/2023 1:52 PM RETAIL STORE ASSISTANT Pulse 96 07/30/2023 1:52 PM RETAIL STORE ASSISTANT Temperature - - Respiratory Rate - - Oxygen Saturation 97% 07/30/2023 1:52 PM RETAIL STORE ASSISTANT Inhaled Oxygen Concentration - - Weight 158.3 kg (349 lb) 07/30/2023 1:52 PM RETAIL STORE ASSISTANT Height 193 cm (6' 4 ) 07/30/2023 1:52 PM RETAIL STORE ASSISTANT Body Mass Index 42.48 07/30/2023 1:52 PM RETAIL STORE ASSISTANT documented in this encounter Patient Instructions * Patient Instructions* Ferny Carreon MD - 07/30/2023 2:36 PM RETAIL STORE ASSISTANT clinical evidence of compressive right ulnar neuropathy - counseled about avoiding pressure on the enrve - Iron deficiency anemia - cont transfusion - PT for balance and gait retraining and muscle strengthening 3 times a week for 12 weeks - OT therapy 3 times a week x 12 weeks - EMG/NCV - blood work for Periferal neuropathy - Diabetes control - F/up in 2.5 mo in [facility] [place] STORE ASSISTANT documented in this encounter Progress Notes * Ferny Carreon MD - 07/30/2023 12:44 PM CST NEUROLOGY CONSULTATION Name: Rene yHatt Date: 07/30/2023 Referring Physician: No referring provider defined for this encounter. Chief Complaint: No chief complaint on file. HISTORY OF PRESENT ILLNESS: I saw Rene Hyatt in a new patient consultation on 07/30/2023. He is a very pleasant 43 year oldright handed male with a newly diagnosed DM type 1 in 03/30 on Insulin (Hb A1c was 13.3), HTN, Anemia,hypercholesterolemia, intermittent full body tremors, WEST, diabetic foot ulcer,Vitamin deficiency, who was referred for evaluation of numbness. Patient came alone and provided the history. I also reviewed EMR. The patient describes numbness in his hands and feet; he is unable to feel pain or temperature changes, which is bothersome. He first noticed sensory problems in his feet approximately a decade ago, with his hands being affected since about five years later. He endorses tingling in the fingertips of all 10 fingers. He denies pain, except for a constant toothache-like pain from his right elbow down to his wrist. He says that previously he did not have health insurance for a long period of time and never got his physical exams, and might got a long standing diabetes, and started receiving medical management since few months Patient walks independently. Denies tripping or falling. He has intermittent tremors throughout his body, which occur intermittently during rest or activity. He was recently evaluated in the movement disorder clinic at [facility], and was prescribed Gabapentin 100 mg TID for tremors, which he says is already helping with the pain from the right elbow down to the wrist. He also reports episodes of weakness and lightheadedness, which he associates with fluctuations in his blood sugar and blood pressure, especially when meals are skipped. He indicates that he has gained significant gain since was in the hospital for a month on March for scrotal abscess, and was found to have Diabetes Mellitus. He was advised to lose weight and sincelast read he has lost from weighing around 500 pounds down to 341 pounds, and is motivated to continue losing weight, and ultimately re-join the gym. He was found to have iron deficiency anemia and receives iron infusion for it. There is concern forkidney function due to recent tests indicating elevated levels, suggesting possible kidney disease,causing anemia, or an unidentified at this time source of bleeding he has been currently undergoingtesting with GI. Patient has WEST, and is compliant with his CPAP. Patient buys over the counter vitamin B12 and Vitamin D. Patient lives together with his mother, and takes care of her, she has MS, diabetes type 2, periferal neuropathy and is paralyzed waist down. Denies previous history of double vision, blurry vision, difficulty swallowing. Previous studies: see below ROS: Constitutional: No fever, no fatigue; Eye: No recent visual problem; ear/nose/mouth/throat: No decreased hearing; respiratory: No shortness of breath, no cough; cardiovascular: No chest pain; gastrointestinal: No vomiting, no diarrhea, no constipation; genitourinary: No urinary incontinence; musculo skeletal: No joint pain, no back pain, no neck pain; psychiatric: No moodiness, no depression. ALLERGIES: No Known Allergies MEDICATIONS: Current Outpatient Medications Medication Sig ??? acetaminophen (Tylenol) 500 MG tablet Take 1 (one) tablet by mouth every 6 hours as needed ??? Alcohol Swabs (Alcohol Prep) PADS ??? tijykdm-kyutmockzjakd-dalpuglg 250-250-65 MG tablet Take 1 (one) tablet by mouth once daily as needed ??? atorvastatin (Lipitor) 20 MG tablet ??? Baqsimi One Pack 3 MG/DOSE POWD ??? cephalexin (Keflex) 500 MG capsule ??? doxycycline hyclate (Vibramycin) 100 MG capsule ??? ferrous sulfate 325 (65 FE) MG tablet ??? fluconazole (Diflucan) 200 MG tablet ??? gabapentin (Neurontin) 100 MG [...] (Ultram) 50 MG tablet ??? TRUEplus Pen [place] 31G X 5 MM needle ??? Trulicity 1.5 MG/0.5ML injection ??? vitamin D, ergocalciferol, (Drisdol) 1.25 MG (15378 UT) capsule No current facility-administered medications for this visit. PAST MEDICAL HISTORY: No past medical history on file. PAST SURGICAL HISTORY: Past Surgical History: Procedure Laterality Date ??? Cyst Removal 2022 scrotum FAMILY HISTORY: No family history on file. SOCIAL HISTORY: Social History Socioeconomic History ??? Marital status: [...] on file Housing Stability: Not on file PHYSICAL EXAMINATION: BP 139/85 Pulse 96 Ht 1.93 m (6' 4 ) Wt (!) 158.3 kg (349 lb) SpO2 97% General: The patient is a well developed, well nourished person who appears their stated age. He iswell groomed and appropriately gowned. HEENT: Atraumatic, normocephalic with moist mucus membranes. Mallampati class IV. No carotid bruitsare noted. No lymphadenopathy is palpated. Lungs: Clear to auscultation all gonsalez. Heart: Regular rate and rhythm. Abdomen: non-distended, normal sounds in 4 quadrants. Extremities: Intact without clubbing, cyanosis or edema. Skin: No rashes or lesions NEUROLOGICAL EXAMINATION: Mental Status: The patient is awake, alert, cooperative and oriented x 3. Answers questions and follows commands appropriately. Speech is clear without dysarthria. Language is fluent with intact naming, comprehension, repetition and expression. Cranial Nerve Exam: Visual gonsalez are full [...] normal. Sternocleidomastoid and trapezius strength are normal. No Lhermitte's sign. Motor: Strength is 5/5 (full), except for left fingers abduction 2+/5, and bilateral project consultant 5/5 on the right, and 5-/5 on the left. Tone is normal throughout. No abnormal movements are seen. No wasting of any musculature is noted. No pronator drift, no satelliting. Sensory: Sensation to light touch is absent [...] slightly. It is strong at the knees Reflexes: Deep tendon reflexes are absent throughout except for biceps 2/4 and knees 2/4, bilaterally; absent ankle reflexes, mute plantar reflexes. No ankle clonus. Coordination: Finger to nose mild distal tremor on the left, rapid alternating; fast finger movements are mildly on the left.. Rapid repetitive movements are normal. Gait: Raises from a seated position with arms crossed in front of the chest. Gait is mildly broad based, steady, with a normal stride length and arm swings. Walks on toes, unable to walk on heels, walks in tandem with hesitance, Romberg sign is absent. Workup includes: HbA1 C Laboratory: reviewed as below. Imaging: personally reviewed by me IMPRESSION: Rene Hyatt is a very pleasant 43 year old right-handed male ight handed male with a newly diagnosed DM type 1 in 03/30 on Insulin (Hb A1c was 13.3), HTN, Anemia,hypercholesterolemia, intermittent full body tremors, WEST, diabetic foot ulcer,Vitamin deficiency, who was referred for evaluation of numbness.Numbness and tingling in the feet noticed 1 decade ago, and in the fingera and hands about5 years ago. These have progressed insidiosly from distal to proximal to the point that he feels now persistently numb from the toes up to the knees and from the fingertips up to the wrists. In addition he endorses a tooth ache-like pain from the right elbow down to the wrist along the left side ofthe right forearm tdeveloped persistent numdness sensation that has ascended. 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 RECOMMENDATIONS: -compressive right ulnar neuropathy - counseled about avoiding pressure on the ulnar nerve - Iron deficiency anemia - cont iron infusions - PT for balance and gait retraining and muscle strengthening 3 times a week for 12 weeks - OT therapy 3 times a week x 12 weeks - EMG/NCV - blood work for periferal neuropathy - workup for peripheral polyneuropathy workup Blood draw for reversible causes of peripheral polyneuropathy including CBC, CMP, Ca, Mg, Phos, HgbA1C, also Oral glucose tolerance test: fasting and at 2 hrs, TSH, Vitamin B1, Vitamin B6, Vitamin B12, MMA, Vitamin E, Folic Acid, Copper, Zinc, ELOISA, ESR, CRP, RF, SPEP w IFIX, p-ANCA, c-ANCA, SSA IgG, SSB IgG, DEBBI; HIV, FTA- Hepatitis C IgG, Cryoglobulin; CPK; EMG biopsy Add Heavy Metal screen if relevant, Add HIV screen, Lyme's disease ab, FTA ab; Parvovirus B19 PCR (if suspected AIDP); leptospirosis (polyneuropathy and meningitis); if relevant Add paraneoplastic antibody panel (Romero) if suspected/concurrent cancer + CT chest/abdomen and pelvis w and w/o on), Anti-Jo1 ab Acute axonal AIDP(NIMA: Gm1a/b, Gd1a and GalNAc-Gd1a; ASMAN:Gm1, Gd1a), porphyria. Add LP if relevant Ask patient for a h/o Chemotherapy (Cisplatin, Toxol, Vincristine, taxanes), radiation therapy, Phenytoin, ETOH overuse, Febuxostat (Adenuric) for gout, family h/o periferal polyneuropathy - Diabetes control A1c goal <7 - Lifestyle modification including 7-8 hours of night time sleep; daily walking, Vitamin D3 supplementation. Mediterranean-style diet which consists of olive oils, nuts, fibers, oats, beans, fruits, vegetables, lean meats, fish, whole grains. Drink at least 64 oz of water per day, try to avoid soda,and sweetened beverages -Follow up in 2.5 months in neuromuscular clinic A total of 60 min were spent today with the patient including ebnr-wn-osay and non wues-kz-webl. Thank you for allowing me to participate in the care of your patient. Please do not hesitate to contact me if I can provide any further assistance. Sincerely, Ferny Carreon MD PhD Neurology [place] STORE ASSISTANT documented in this encounter Plan of Treatment Scheduled Orders Name Type Priority Associated Diagnoses Orde r Schedule VITAMIN B1 Lab Routine Polyneuropathy associated with underlying disease (HCC) 1 Occurrences starting 08/01/2023 until 08/25/2024 VITAMIN B6 Lab Routine Polyneuropathy associated with underlying disease (HCC) 1 Occurrences starting 08/01/2023 until 08/25/2024 VITAMIN B12 Lab Routine Polyneuropathy associated with underlying disease (HCC) Ordered: 08/01/2023 METHYLMALONIC ACID BLOOD Lab Routine Polyneuropathy associated with underlying disease (HCC) 1 Occurrences starting 08/01/2023 until 08/25/2024 VITAMIN E Lab Routine Polyneuropathy associated with underlying disease (HCC) 1 Occurrences starting 08/01/2023 until 08/25/2024 FOLATE Lab Routine Polyneuropathy associated with underlying disease (HCC) 1 Occurrences starting 08/01/2023 until 08/25/2024 COPPER BLOOD Lab Routine Polyneuropathy associated with underlying disease (HCC) 1 Occurrences starting 08/01/2023 until 08/25/2024 ZINC BLOOD Lab Routine Polyneuropathy associated with underlying disease (HCC) 1 Occurrences starting 08/01/2023 until 08/25/2024 TAMY+PROTEIN ELECTROPH BLOOD Lab Routine Polyneuropathy associated with underlying disease (HCC) Ordered: 08/01/2023 ERYTHROCYTE SEDIMENTATION RATE Lab Routine Polyneuropathy associated with underlying disease (HCC) 1 Occurrences starting 08/01/2023 until 08/25/2024 MYELOPEROXIDASE ANTIBODY Lab Routine Polyneuropathy associated with underlying disease (HCC) Ordered: 08/01/2023 MPO/NY 3 AUTOANTIBODIES PANEL Lab Routine Polyneuropathy associated with underlying disease (HCC) Ordered: 08/01/2023 RHEUMATOID FACTOR BLOOD QUANTITATIVE Lab Routine Polyneuropathy associated with underlying disease (HCC) Ordered: 08/01/2023 SS-A/SS-B (SJOGREN'S) ANTIBODY PANEL Lab Routine Polyneuropathy associated with underlying disease (HCC) Ordered: 08/01/2023 ANGIOTENSIN CONVERTING ENZYME BLOOD Lab Routine Polyneuropathy associated with underlying disease (HCC) 1 Occurrences starting 08/01/2023 until 08/25/2024 HIV-1 HIV-2 ANTIBODY + HIV P24 AG PANEL Lab Routine Polyneuropathy associated with underlying disease (HCC) Ordered: 08/01/2023 HEPATITIS C ANTIBODY Lab Routine Polyneuropathy associated with underlying disease (HCC) Ordered: 08/01/2023 CK BLOOD Lab Routine Polyneuropathy associated with underlying disease (HCC) 1 Occurrences starting 08/01/2023 until 08/25/2024 CRYOGLOBULIN QUALITATIVE Lab Routine Polyneuropathy associated with underlying disease (HCC) 1 Occurrences starting 08/01/2023 until 08/25/2024 Scheduled Referrals Name Type Priority Associated Diagnoses Order Schedule AMB REFERRAL TO PHYSICAL THERAPY Outpatient Referral Routine Diabetic peripheral autonomic neuropathy (HCC) 1 Occurrences starting 08/01/2023 until 07/31/2024 AMB REFERRAL TO OCCUPATIONAL THERAPY Outpatient Referral Routine Diabetic peripheral autonomic neuropathy (HCC) 1 Occurrences starting 08/01/2023 until 07/31/2024 documented as of this encounter Visit Diagnoses Diagnosis Diabetic peripheral autonomic neuropathy (HCC)- Primary Type II or unspecified type diabetes mellitus with neurological manifestations, not stated as uncontrolled Polyneuropathy associated with underlying disease (HCC) documented in this encounter Care Teams Senior Mobile Web Developer Relationship Specialty Start Date End Date Nguyễn Bingham MD [address] [place] [phone] PCP - General Family Medicine 07/03/23 documented as of this encounter
--- OUTSIDE RECORDS SUMMARY | 2024-06-08 00:03 | XMS_ITS | Encounter Summary ---
Author Organization [facility] Address [address] [place] [address]. [place], [place] [id number] [place] [id number] Care Team Providers Care Strip Cutter Name Role Phone Herb Burnett MD Primary Care Provider + Reason for Visit * Reason Comments Med Refills Med refills Encounter Details Date Type Department Care Team (Late st Contact Info) Description 04/27/2023 8:20 AM EDITOR SOUND Office Visit [facility] [address] [place] [address] Herb Burnett MD [address] [facility] [address] [place] [address] Med Refills (Med refills/) Social History Tobacco Use Types Packs/Day Years [...] Sign Reading Time Taken Comments Blood Pressure 134/68 04/27/2023 8:17 AM EDITOR SOUND Pulse 90 04/27/2023 8:17 AM EDITOR SOUND Temperature 36.6 ??C (97.9 ??F) 04/27/2023 8:17 AM CS T Respiratory Rate 20 04/27/2023 8:17 AM EDITOR SOUND Oxygen Saturation 98% 04/27/2023 8:17 AM EDITOR SOUND Inhaled Oxygen Concentration - - Weight 173.9 kg (383 lb 6.4 oz) 04/27/2023 8:17 AM EDITOR SOUND Height 198.1 cm (6' 6 ) 04/27/2023 8:17 AM EDITOR SOUND Body Mass Index 44.31 04/27/2023 8:17 AM EDITOR SOUND documented in this encounter Patient Instructions * Patient Instructions* Herb Burnett MD - 04/27/2023 8:20 AM EDITOR SOUND Will let you know when labs back and adjust medicine as needed. Antibiotic for toe and topical for right lower leg. OR SOUND OR SOUND documented in this encounter Progress Notes * Herb Burnett MD - 04/27/2023 8:20 AM CST Chief Complaint: Med Refills (Med refills/) HPI: Rene Hyatt is a 42-year-old male here for follow-up on chronic medical problems of diabetes and hypertension. Had labs done today with results pending. Recently treated for left foot ulcer and that is healing well. Does have infected toe on right foot and skin lesions on right castellanos. ROS: Review of Systems Constitutional: Negative for fever. Cardiovascular: Negative for chest pain. Gastrointestinal: Negative for abdominal pain. Genitourinary: Negative for frequency. Neurological: Negative for headaches. Physical Exam Constitutional: General: He is not in acute distress. Cardiovascular: Rate and Rhythm: Normal rate and regular rhythm. Pulses: Normal pulses. Pulmonary: Breath sounds: Normal breath sounds. Musculoskeletal: Cervical back: Neck supple. Skin: Comments: Only small ulcer remaining to left foot just proximal to great toe on sole of that foot. First degree only and no drainage. Has area of cellulitis to right middle castellanos. Has paronychia to left second toe. Neurological: Mental Status: He is alert. Mental status is at baseline. Psychiatric: Mood and Affect: Mood normal. Current Outpatient Medications Medication Sig ??? jqjmyli-rijknzmwobvtf-eleiarrr (EXCEDRIN MIGRAINE) 250-250-65 MG tablet Take 1 tablet by mouth. ??? atorvastatin (LIPITOR) 20 MG tablet Take 1 tablet (20 mg total) by mouth daily. ??? cephALEXin (KEFLEX) 500 MG capsule 2 po bid ??? Glucose Blood ([employer] BLOOD GLUCOSE TEST) test strip Use as directed up to four times a day. ??? insulin glargine (LANTUS SOLOSTAR) 100 UNIT/ML injection (PEN) Inject 20 Units into the skin daily. ??? Insulin Lispro w/ Trans Port 100 UNIT/ML Solution Pen-injector Inject 10 Units into the skin 3 (three) times daily. ??? Insulin Pen Needle (TRUEPLUS PEN NEEDLES) 31G X 5 MM Misc Use with insulin pens ??? Isopropyl Alcohol 70 % Misc Use with injections and blood glucose checks ??? Lancets (ONETOUCH DELICA PLUS HEPCYV58Y) Misc 1 each by Does not apply route 4 (four) times daily. ??? losartan (COZAAR) 25 MG tablet Take 1 tablet (25 mg total) by mouth daily. ??? metFORMIN (GLUCOPHAGE) 1000 MG tablet Take 0.5 tablets (500 mg total) by mouth 2 (two) times daily. ??? mupirocin (BACTROBAN) 2 % ointment Apply topically 2 (two) times daily for 7 days. ??? oyster shell calcium 500 mg, elemental, (OSCAL) 500 MG tablet Take 1 tablet (500 mg total) by mouth daily. ??? pantoprazole EC (PROTONIX) 40 MG tablet Take 1 tablet (40 mg total) by mouth daily. ??? vitamin D3, cholecalciferol, 1.25 mg capsule Take 1 capsule (50,000 Units total) by mouth 2 (two) times a week. ??? dulaglutide (TRULICITY) 1.5 MG/0.5ML injection Inject 1.5 mg into the skin once a week. Indications: Diabetes ??? potassium chloride CR (KLOR-CON M20) 20 MEQ tablet Take 1 tablet (20 mEq total) by mouth daily. No current facility-administered medications for this visit. No past medical history on file. Past Surgical History: Procedure Laterality Date ??? EXTRACT ERUPT TOOTH Bilateral wisdom teeth Social History Tobacco Use ??? Smoking status: Never Passive exposure: Never ??? Smokeless tobacco: Never Substance Use Topics ??? Alcohol use: Not on file Family History Problem Relation Name Age of Onset ??? Diabetes Mother ??? Pancreatic cancer Father Vitals: 04/27/23 0817 BP: 134/68 Pulse: 90 Temp: 97.9 ??F (36.6 ??C) TempSrc: Temporal Weight: (!) 173.9 kg (383 lb 6.4 oz) Height: 1.981 m (6' 6 ) Diagnoses/Impression: Type 1 diabetes mellitus with foot ulcer ([facility]) ([facility]) (primary encounter diagnosis) Paronychia of second toe of right foot Primary hypertension Cellulitis of leg, right Recommendations and Plan: Orders Placed This Encounter ??? cephALEXin (KEFLEX) 500 MG capsule Si po bid Dispense: 40 capsule Refill: 0 ??? mupirocin (BACTROBAN) 2 % ointment Sig: Apply topically 2 (two) times daily for 7 days. Dispense: 30 g Refill: 0 Patient Instructions Will let you know when labs back and adjust medicine as needed. Antibiotic for toe and topical for right lower leg. HERB BURNETT MD Referring Provider: Self Referral PCP: HERB BURNETT MD OR SOUND documented in this encounter Plan of Treatment Not on file documented as of this encounter Visit Diagnoses Diagnosis Type 1 diabetes mellitus with foot ulcer ([facility])- Primary Type I (juvenile type) diabetes mellitus with other specified manifestations, not stated as uncontrolled Paronychia of second toe of right foot Onychia and paronychia of toe Primary hypertension Unspecified essential hypertension Cellulitis of leg, right Cellulitis and abscess of leg, except foot documented in this encounter Care Teams Strip Cutter Relationship Specialty Start Date End Date Herb Burnett MD [address] [phone] PCP - General FAMILY PRACTICE 02/26/23 documented as of this encounter
--- OUTSIDE RECORDS SUMMARY | 2024-06-08 00:03 | XMS_ITS | Encounter Summary ---
Author Organization [facility] Address [address] [place] [address]. [place] [address] [place] [address] Care Team Providers Care Sulfonation Equipment Operator Name Role Phone Herb Burden MD Primary Care Provider + Encounter Details Date Type Department Care Team (Late st Contact Info) Description 03/06/2023 Abstract [facility] BUSINESS OFFICE [address] [place] [address] Abstract, Doc Med Group Social History Tobacco Use Types Packs/Day Years Used Date Smoking Tobacco: Never Assessed PHQ-2 Answer Date Recorded Patient Health Questionnaire-2 Score 2 04/01/2023 Sex and Gender Information Value Date Recorded Sex Assigned at Not on file Legal Sex Male 5:25 PM CDT Gender Identity Not on file Sexual Orientation Not on file documented as of this encounter Plan of Treatment Not on file documented as of this encounter Procedures Procedure Name Priority Date/Time Associated Diagnosis Comments HEMOGLOBIN, GLYCOSYLATED Routine 03/06/2023 documented in this encounter Results * HEMOGLOBIN, GLYCOSYLATED (03/06/2023) HGB A1C 13.3 % 03/06/2023 us Default History Genericprovider LABORATORY Final Result documented in this encounter Visit Diagnoses Not on filedocumented in this encounter Care Teams Sulfonation Equipment Operator Relationship Specialty Start Date End Date Herb Burden MD [address] [facility] [address] [place] [address] PCP - General FAMILY PRACTICE 02/26/23 documented as of this encounter
--- OUTSIDE RECORDS SUMMARY | 2024-06-08 00:03 | XMS_ITS | Encounter Summary ---
Author Organization [facility] Address [facility]. [place], [place] [address] [place] [address] Care Team Providers Care Systems Navigator Name Role Phone Herb Burden MD Primary Care Provider + Reason for Visit * Reason Onset Date Comments TCM 03/24/2023 Encounter Details Date Type Department Care Team (Late st Contact Info) Description 03/24/2023 Telephone [facility] [address] [place] [address] Herb Burden MD [address] [place] [address] TCM Social History Tobacco Use Types Packs/Day Years Used Date Smoking Tobacco: Never Assessed Sex and Gender Information Value Date Recorded Sex Assigned at Not on file Legal Sex Male 5:25 PM CDT Gender Identity Not on file Sexual Orientation Not on file documented as of this encounter Progress Notes * Cyn Salmeron RN - 03/26/2023 3:32 PM CDT Follow up call to patient post hospitalization Date of hospital discharge: 03/25/23 Patient discharged from: [facility] diagnosis/diagnoses: Scrotal abscess, Perineal abscess, and Ange's gangrene Procedures performed while inpatient: yes Begin the medication reconciliation process (completed at first face to face visit) Any follow up services needed: pcp Education on self management: at d/c Assess adherence with treatment (medication) regimen and provide support. Does patient have access to care and services (rides, etc)? Yes, using father's truck Appointment scheduled for follow up in the office (7 days if high complexity or within 14 days for medium complexity) Appointment Date: 04/01/23 Time: 1040 Spoke with pt and he is doing well. Staying in a hotel in [place] at this time. Has a cleaning crew working on his condemned home. Pt denies any needs at this time. States that he does not have a Medicaid card yet but assured pt that insurance could be ran without the card itself present. * Cyn Salmeron RN - 03/24/2023 10:51 AM CDT [facility] homecare will see pt * Mali Choe - 03/24/2023 9:46 AM CDT [facility] TCM VISIT QUESTIONS: Discharge Date:03/25/23 Facility Being Discharged From Name:[facility] Diagnosis for Discharge:Scrotal Abscess Does pt have home health and if yes,who:No not yet. Wants an order from [facility] Is patient aware of TCM visit or was this made by the hospital?Made by hospital TCM Appt Date and Time: 04/01/23 at 10:40 documented in this encounter Plan of Treatment Not on file documented as of this encounter Visit Diagnoses Not on filedocumented in this encounter Care Teams Systems Navigator Relationship Specialty Start Date End Date Herb Burden MD [address] [facility] [address] [place] [address] PCP - General FAMILY PRACTICE 02/26/23 documented as of this encounter
--- OUTSIDE RECORDS SUMMARY | 2024-06-08 00:03 | XMS_ITS | Encounter Summary ---
Author Organization [facility] Address [address] [place] [address]. [place], [place] [address] [place] [address] Care Team Providers Care Sheet Metal Shop Supervisor Name Role Phone Herb Burden MD Primary Care Provider + Reason for Visit * Reason Onset Date Comments Concerns 03/03/2023 Encounter Details Date Type Department Care Team (Late st Contact Info) Description 03/03/2023 Telephone [facility] [address] [place] [address] Herb Burden MD [address] [place] [address] Concerns Social History Tobacco Use Types Packs/Day Years Used Date Smoking Tobacco: Never Assessed Sex and Gender Information Value Date Recorded Sex Assigned at Not on file Legal Sex Male 5:25 PM CDT Gender Identity Not on file Sexual Orientation Not on file documented as of this encounter Progress Notes * Cyn Salmeron RN - 03/03/2023 8:50 AM CDT Spoke with pt's mother and she states that pt can barely move due to his pain. His testicle is veryswollen. He is feeling worse than he was yesterday. Tramadol is helping very little. Discussed withmother that pt would best be treated in the ED due to his level of pain. She voiced understanding. * Annamarie Matthews - 03/03/2023 8:16 AM CDT Pt mother calling regarding pt's pain. Can hardly move, scrotum is severely swollen. Says the pain pills we prescribed barely touch it. Inquiring on if there's anything else we can do. documented in this encounter Plan of Treatment Not on file documented as of this encounter Visit Diagnoses Not on filedocumented in this encounter Care Teams Sheet Metal Shop Supervisor Relationship Specialty Start Date End Date Herb Burden MD [address] [phone] PCP - General FAMILY PRACTICE 02/26/23 documented as of this encounter
--- OUTSIDE RECORDS SUMMARY | 2024-06-08 00:03 | XMS_ITS | Encounter Summary ---
Author Organization [facility] Address [facility]. [place], [place] [address] [place] [address] Care Team Providers Care Insurance Application Investigator Name Role Phone Herb Burden MD Primary Care Provider + Encounter Details Date Type Department Care Team (Latest Contact Info) Description 03/02/2023 Travel Social History Tobacco Use Types Packs/Day [...] on filedocumented in this encounter Care Teams Insurance Application Investigator Relationship Specialty Start Date End Date Herb Burden MD [address] [facility] 112 [place] [address] PCP - General FAMILY PRACTICE 02/26/23 documented as of this encounter
--- OUTSIDE RECORDS SUMMARY | 2024-06-08 00:03 | XMS_ITS | Encounter Summary ---
Author Organization [facility] Address [facility]6 [facility]. [place], [place] [address] [place] [address] Care Team Providers Care Director Of Outreach Name Role Phone Herb Burden MD Primary Care Provider + Reason for Visit * Reason Onset Date Comments Results 04/27/2023 Encounter Details Date Type Department Care Team (Late st Contact Info) Description 04/27/2023 Telephone [facility] [address] [place] [address] Herb Burden MD [address] [place] [address] Results Social History Tobacco Use Types Packs/Day Years Used Date Smoking Tobacco: Never Passive Smoke Exposure: Never Smokeless Tobacco: Never PHQ-2 Answer Date Recorded Patient Health Questionnaire-2 Score 2 04/27/2023 Sex and Gender Information Value Date Recorded Sex Assigned at Not on file Legal Sex Male 5:25 PM CDT Gender Identity Not on file Sexual Orientation Not on file documented as of this encounter Progress Notes * Cyn Salmeron RN - 04/27/2023 1:19 PM CST Pt voices understanding and denies any questions at this time. CLEANER * Herb Burden MD - 04/27/2023 9:03 AM CST Have him start taking 20 meq daily and recheck next week. CLEANER * Cyn Salmeron RN - 04/27/2023 9:01 AM CST Shanon with Lab called with critical potassium of 3.0. Read back and verified. CLEANER documented in this encounter Plan of Treatment Not on file documented as of this encounter Results * (ABNORMAL) BASIC METABOLIC PANEL (05/04/2023 8:43 AM PAN CLEANER) GLUCOSE 129(H) 70 - 99 MG/DL 05/04/2023 10:33 AM [facility] BUN 14 7 - 18 MG/DL 05/04/2023 10:33 AM [facility] CREATININE S/P/B 0.77 0.7 - 1.3 MG/DL 05/04/2023 10:33 AM [facility] SODIUM S/P/B 139 136 - 145 MMOL/L 05/04/2023 10:33 AM [facility] POTASSIUM S/P/B 4.2 3.5 - 5.1 MMOL/L 05/04/2023 10:33 AM [facility] CHLORIDE S/P/B 101 100 - 108 MMOL/L 05/04/2023 10:33 AM [facility] CO2 31.6 21 - 32 MMOL/L 05/04/2023 10:33 AM [facility] CALCIUM S/P/B 9.2 8.5 - 10.1 MG/DL 05/04/2023 10:33 AM [facility] ANION GAP 6.4 5 - 15 MMOL/L 05/04/2023 10:33 AM [facility] BUN CREATININE RATIO 18.2 6 - 26 05/04/2023 10:33 AM [facility] GFR ESTIMATE >90 >90 ML/MIN/1.7 3 M2 05/04/2023 10:33 AM [facility] Comment: NOTE: eGFR is not calculated for patients <18 years of age. This is an estimated GFR calculation using the new CKD EPI creatinine equation without race and so does not require a correction factor for race. This estimated GFR should not be used for calculating drug doses. 05/04/2023 8:43 AM PAN CLEANER Herb Burden MD LABORATORY Final Re sult [facility] [address] [place] [address], documented in this encounter Visit Diagnoses Diagnosis Hypokalemia- Primary Hypopotassemia documented in this encounter Care Teams Director Of Outreach Relationship Specialty Start Date End Date Herb Burden MD [address] [facility] [address] [place] [phone] PCP - General FAMILY PRACTICE 02/26/23 documented as of this encounter
--- OUTSIDE RECORDS SUMMARY | 2024-06-08 00:03 | XMS_ITS | Encounter Summary ---
Author Organization [facility] Address [facility]. [place], [place] [address] [place] [address] Care Team Providers Care Milk Handler Name Role Phone Herb Burden MD Primary Care Provider + Reason for Visit * Reason Onset Date Comments Information 03/31/2023 Encounter Details Date Type Department Care Team (Late st Contact Info) Description 03/31/2023 Telephone [facility] [address] [place] [address] Herb Burden MD [address] [place] [address] Information Social History Tobacco Use Types Packs/Day Years [...] Progress Notes * Cyn Salmeron RN - 03/31/2023 12:20 PM CDT Okayed orders. They will see him on 04/05 * Zina Urena - 03/31/2023 12:06 PM CDT Pt was given home health orders and became homeless, pt is now in a hotel and can be seen by home health. Eric is needing a verbal ok from nurse that's its ok to see pt outside of the 48 hrs. Will begin care on 04/05 if given the ok. documented in this encounter Plan of Treatment Not on file documented as of this encounter Visit Diagnoses Not on filedocumented in this encounter Care Teams Milk Handler Relationship Specialty Start Date End Date Herb Burden MD [address] [facility] [address] [place] [phone] PCP - General FAMILY PRACTICE 02/26/23 documented as of this encounter
--- OUTSIDE RECORDS SUMMARY | 2024-06-08 00:03 | XMS_ITS | Encounter Summary ---
Author Organization [facility] Address [address] [place] [address]. [place], [place] [address] [place] [address] Care Team Providers Care Middle School Reading Teacher Name Role Phone Herb Burden MD Primary Care Provider + Encounter Details Date Type Department Care Team (Latest Contact Info) Description 05/04/2023 Travel Social History Tobacco Use Types Packs/Day [...] on filedocumented in this encounter Care Teams Middle School Reading Teacher Relationship Specialty Start Date End Date Herb Burden MD [address] [facility] 112 [place] [address] PCP - General FAMILY PRACTICE 02/26/23 documented as of this encounter
--- OUTSIDE RECORDS SUMMARY | 2024-06-08 00:03 | XMS_ITS | Encounter Summary ---
Author Organization [facility] Address [facility]. [place], [place] [address] [place] [address] Care Team Providers Care Air Pollution Compliance Inspector Name Role Phone Herb Burden MD Primary Care Provider + Reason for Visit * Reason Onset Date Comments Orders 03/24/2023 Encounter Details Date Type Department Care Team (Late st Contact Info) Description 03/24/2023 Telephone [facility] [address] [place] [address] Herb Burden MD [address] [place] [address] Orders Social History Tobacco Use Types Packs/Day Years Used Date Smoking Tobacco: Never Assessed Sex and Gender Information Value Date Recorded Sex Assigned at Not on file Legal Sex Male 5:25 PM CDT Gender Identity Not on file Sexual Orientation Not on file documented as of this encounter Progress Notes * Cyn Salmeron RN - 03/24/2023 10:51 AM CDT Spoke with Richard henderson. They will see him within 48 hours of d/c. * Cookie Conklin - 03/24/2023 10:13 AM CDT Pt is discharging from [facility] tomorrow. [facility] homecare is calling to see if Dr. Burden would sign any/allorders for nursing/wound care they would need. They only need a verbal documented in this encounter Plan of Treatment Not on file documented as of this encounter Visit Diagnoses Not on filedocumented in this encounter Care Teams Air Pollution Compliance Inspector Relationship Specialty Start Date End Date Herb Burden MD [address] [address] PCP - General FAMILY PRACTICE 02/26/23 documented as of this encounter
--- OUTSIDE RECORDS SUMMARY | 2024-06-08 00:03 | XMS_ITS | Encounter Summary ---
Author Organization [facility] Address [facility]6 [facility]. [place], [place] [address] [place] [address] Care Team Providers Care Early Morning Name Role Phone Herb Burden MD Primary Care Provider + Encounter Details Date Type Department Care Team (Latest Contact Info) Description 05/04/2023 8:37 AM WOOD CARVER HAND - 05/04/2023 11:59 PM [facility] Hospital Encounter [facility] [address] [place] [address] Herb Burden MD [address] [place] [address] Discharge Disposition: Home or Self Care (Routine Discharge) Social History Tobacco Use Types Packs/Day Years [...] this encounter Medications at Time of Discharge aspirin-acetamin ophen-caffeine (EXCEDRIN MIGRAINE) 250-250-65 MG tablet Take 1 tablet by mouth. cephALEXin (KEFLEX) 500 MG capsuleIndicatio ns:Paronychia of second toe of right foot 2 po bid 40 capsule 04/27/2023 Glucose Blood ([facility] BLOOD GLUCOSE TEST) test strip Use as directed up to four times a day. 03/11/2023 Isopropyl Alcohol 70 % MiscIndications: Type 1 diabetes mellitus with foot ulcer (CMS/HCC HHS/HCC) Use with injections and blood glucose checks 400 each 3 04/15/2023 Lancets (ONETOUCH DELICA PLUS [id number]) MiscIndications: Type 1 diabetes mellitus with foot ulcer (CMS/[facility] HHS/HCC) 1 each by Does not apply route 4 (four) times daily. 400 each 3 04/15/2023 potassium chloride CR (KLOR-CON M20) 20 MEQ tabletIndication s:Hypokalemia Take 1 tablet (20 mEq total) by mouth daily. 30 tablet 04/27/2023 vitamin D2, ergocalciferol, (DRISDOL) 1.25 mg capsule Take 1 capsule (1.25 mg total) by mouth every 7 days. 03/26/2023 vitamin D3, cholecalciferol, 1.25 mg capsuleIndicatio ns:Vitamin D deficiency Take 1 capsule (50,000 Units total) by mouth 2 (two) times a week. 8 capsule 2 04/01/2023 atorvastatin (LIPITOR) 20 MG tablet Take 1 tablet (20 mg total) by mouth daily. 60 tablet 03/25/2023 4 dulaglutide (TRULICITY) 1.5 MG/0.5ML injectionIndicat ions:Diabetes Mellitus Inject 1.5 mg into the skin once a week. Indications: Diabetes 2 mL 2 04/27/2023 3 insulin glargine (LANTUS SOLOSTAR) 100 UNIT/ML injection (PEN) Inject 20 Units into the skin daily. 12 mL 03/25/2023 3 Insulin Lispro w/ Trans Port 100 UNIT/ML Solution Pen-injector Inject 10 Units into the skin 3 (three) times daily. 03/25/2023 3 Insulin Pen Needle (TRUEPLUS PEN NEEDLES) 31G X 5 MM MiscIndications: Type 1 diabetes mellitus with foot ulcer ([facility]/HCC HHS/HCC) Use with insulin pens 100 each 5 04/16/2023 3 losartan (COZAAR) 25 MG tablet Take 1 tablet (25 mg total) by mouth daily. 60 tablet 03/26/2023 4 metFORMIN (GLUCOPHAGE) 1000 MG tablet Take 0.5 tablets (500 mg total) by mouth 2 (two) times daily. 60 tablet 03/25/2023 3 mupirocin (BACTROBAN) 2 % ointmentIndicati ons:Cellulitis of leg, right Apply topically 2 (two) times daily for 7 days. 30 g 04/28/2023 3 oyster shell calcium 500 mg, elemental, (OSCAL) 500 MG tablet Take 1 tablet (500 mg total) by mouth daily. 4 pantoprazole EC (PROTONIX) 40 MG tablet Take 1 tablet (40 mg total) by mouth daily. 60 tablet 03/26/2023 4 documented as of this encounter Plan of Treatment Not on file documented as of this encounter Procedures Procedure Name Priority Date/Time Associated Diagnosis Comments BASIC METABOLIC PANEL Routine 05/04/2023 8:43 AM WOOD CARVER HAND Hypokalemia documented in this encounter Results * (ABNORMAL) BASIC METABOLIC PANEL (05/04/2023 8:43 AM WOOD CARVER HAND) GLUCOSE 129(H) 70 - 99 MG/DL 05/04/2023 10:33 AM [facility] BUN 14 7 - 18 MG/DL 05/04/2023 10:33 AM [facility] CREATININE S/P/B 0.77 0.7 - 1.3 MG/DL 05/04/2023 10:33 AM [facility] SODIUM S/P/B 139 136 - 145 MMOL/L 05/04/2023 10:33 AM [facility] POTASSIUM S/P/B 4.2 3.5 - 5.1 MMOL/L 05/04/2023 10:33 AM [facility] CHLORIDE S/P/B 101 100 - 108 MMOL/L 05/04/2023 10:33 AM [facility] CO2 31.6 21 - 32 MMOL/L 05/04/2023 10:33 AM [facility] CALCIUM S/P/B 9.2 8.5 - 10.1 MG/DL 05/04/2023 10:33 AM [facility] ANION GAP 6.4 5 - 15 MMOL/L 05/04/2023 10:33 AM [facility] BUN CREATININE RATIO 18.2 6 - 26 05/04/2023 10:33 AM [facility] GFR ESTIMATE >90 >90 ML/MIN/1.7 3 M2 05/04/2023 10:33 AM [facility] Comment: NOTE: eGFR is not calculated for patients <18 years of age. This is an estimated GFR calculation using the new CKD EPI creatinine equation without race and so does not require a correction factor for race. This estimated GFR should not be used for calculating drug doses. 05/04/2023 8:43 AM WOOD CARVER HAND Herb Burden MD LABORATORY Final Re sult [facility] [address] [place] [address], documented in this encounter Visit Diagnoses Diagnosis Hypokalemia Hypopotassemia documented in this encounter Care Teams Early Morning Relationship Specialty Start Date End Date Herb Burden MD [address] [facility] 112 [place] [phone] PCP - General FAMILY PRACTICE 02/26/23 documented as of this encounter
--- OUTSIDE RECORDS SUMMARY | 2024-06-08 00:03 | XMS_ITS | Encounter Summary ---
Author Organization [facility] Address [address] [place] [address]. [place], [place] [address] [place] [address] Care Team Providers Care Facilities Technician Name Role Phone Herb Burden MD Primary Care Provider + Encounter Details Date Type Department Care Team (Latest Contact Info) Description 05/07/2023 Scan [facility] INFO [facility] Scanned, Doc Med Group Social History Tobacco Use [...] on filedocumented in this encounter Care Teams Facilities Technician Relationship Specialty Start Date End Date Herb Burden MD [address] [facility] 112 [place] [address] PCP - General FAMILY PRACTICE 02/26/23 documented as of this encounter
--- OUTSIDE RECORDS SUMMARY | 2024-06-08 00:03 | XMS_ITS | Encounter Summary ---
Author Organization [facility] Address [address] [place] [address]. [place], [place] [address] [place] [address] Care Team Providers Care Clothing Cutter Name Role Phone Herb Burnett MD Primary Care Provider + Reason for Visit * Reason Comments TCM TCM Encounter Details Date Type Department Care Team ([facility] Contact Info) Description 04/01/2023 10:40 AM CDT Office Visit [facility] [address] [place] [address] Herb Burnett MD [address] [facility] [address] [place] [address] TCM (TCM ) Social History Tobacco Use Types Packs/Day Years [...] Sign Reading Time Taken Comments Blood Pressure 138/64 04/01/2023 9:43 AM CDT Pulse 88 04/01/2023 9:43 AM CDT Temperature 36.1 ??C (97 ??F) 04/01/2023 9:43 AM CDT Respiratory Rate 20 04/01/2023 9:43 AM CDT Oxygen Saturation 97% 04/01/2023 9:43 AM CDT Inhaled Oxygen Concentration - - Weight 152.8 kg (336 lb 12.8 oz) 04/01/2023 9:43 AM CDT Height 198.1 cm (6' 6 ) 04/01/2023 9:43 AM CDT Body Mass Index 38.92 04/01/2023 9:43 AM CDT documented in this encounter Patient Instructions * Patient Instructions* Herb Burnett MD - 04/01/2023 10:40 AM CDT Continue current medications, follow-up with surgery and recheck with repeat labs in a month. documented in this encounter Progress Notes * Herb Burnett MD - 04/01/2023 10:40 AM CDT Chief Complaint: TCM (TCM ) HPI: Rene Hyatt is a 42-year-old male here for follow-up on recent hospitalization for scrotal abscess and diabetic foot ulcer. Has been started on medications for diabetes and blood pressure as well as a statin and vitamin D. Now only mild pain to scrotum. No fever. Home health will be visiting later this week. ROS: Review of Systems Constitutional: Negative for fever. Respiratory: Negative for cough. Cardiovascular: Negative for chest pain. Gastrointestinal: Negative for abdominal pain. Neurological: Negative for headaches. Physical Exam Constitutional: General: He is not in acute distress. Cardiovascular: Rate and Rhythm: Normal rate and regular rhythm. Pulmonary: Breath sounds: Normal breath sounds. Genitourinary: Comments: Scrotum is now soft. Still mild serous drainage around incision site to back of scrotum. Musculoskeletal: Cervical back: Neck supple. Skin: Comments: Left foot wrapped and in walking cast boot. Neurological: General: No focal deficit present. Mental Status: He is alert. Psychiatric: Mood and Affect: Mood normal. Current Outpatient Medications Medication Sig byygjef-tyuhsugicrosh-pgwjcgqp (EXCEDRIN MIGRAINE) 250-250-65 MG tablet Take 1 tablet by mouth. atorvastatin (LIPITOR) 20 MG tablet Take 1 tablet (20 mg total) by mouth daily. dulaglutide (TRULICITY) 0.75 MG/0.5ML injection Inject 0.75 mg into the skin. Glucose Blood ([employer] BLOOD GLUCOSE TEST) test strip Use as directed up to four times a day. insulin glargine (LANTUS SOLOSTAR) 100 UNIT/ML injection (PEN) Inject 20 Units into the skin daily. Insulin Lispro w/ Trans Port 100 UNIT/ML Solution Pen-injector Inject 10 Units into the skin 3 (three) times daily. Isopropyl Alcohol 70 % Misc see administration instructions. losartan (COZAAR) 25 MG tablet Take 1 tablet (25 mg total) by mouth daily. metFORMIN (GLUCOPHAGE) 1000 MG tablet Take 0.5 tablets (500 mg total) by mouth 2 (two) times daily. oyster shell calcium 500 mg, elemental, (OSCAL) 500 MG tablet Take 1 tablet (500 mg total) by mouthdaily. pantoprazole EC (PROTONIX) 40 MG tablet Take 1 tablet (40 mg total) by mouth daily. vitamin D3, cholecalciferol, 1.25 mg capsule Take 1 capsule (50,000 Units total) by mouth 2 (two) times a week. No current facility-administered medications for this visit. No past medical history on file. Past Surgical History: Procedure Laterality Date EXTRACT ERUPT TOOTH Bilateral wisdom teeth Social History Tobacco Use Smoking status: Never Passive exposure: Never Smokeless tobacco: Never Substance Use Topics Alcohol use: Not on file Family History Problem Relation Name Age of Onset Diabetes Mother Pancreatic cancer Father Vitals: 04/01/23 0943 BP: 138/64 Pulse: 88 Temp: 97 ??F (36.1 ??C) TempSrc: Temporal Weight: (!) 152.8 kg (336 lb 12.8 oz) Height: 1.981 m (6' 6 ) Diagnoses/Impression: Scrotal abscess (primary encounter diagnosis) Vitamin d deficiency Type 1 diabetes mellitus with foot ulcer (hhs/hcc) ([facility]/hcc) Primary hypertension Recommendations and Plan: Orders Placed This Encounter HEMOGLOBIN, GLYCOSYLATED Standing Status: Future Standing Expiration Date: 03/31/2024 Order Specific Question: Release to patient Answer: System release COMPREHENSIVE METABOLIC PANEL Standing Status: Future Standing Expiration Date: 03/31/2024 Order Specific Question: Release to patient Answer: System release CBC W/DIFF AUTOMATED Standing Status: Future Standing Expiration Date: 03/31/2024 Order Specific Question: Release to patient Answer: System release vitamin D3, cholecalciferol, 1.25 mg capsule Sig: Take 1 capsule (50,000 Units total) by mouth 2 (two) times a week. Dispense: 8 capsule Refill: 2 Patient Instructions Continue current medications, follow-up with surgery and recheck with repeat labs in a month. HERB BURNETT MD Referring Provider: Self Referral PCP: HERB BURNETT MD documented in this encounter Plan of Treatment Not on file documented as of this encounter Results * (ABNORMAL) CBC W/DIFF AUTOMATED (04/27/2023 8:07 AM STYRENE DEHYDRATION REACTOR OPERATOR) WBC 7.91 4.50 - 11.00 x10'3/uL 04/27/2023 8:28 AM [facility] RBC 3.62(L) 4.70 - 6.10 x10'6/uL 04/27/2023 8:28 AM [facility] HGB 9.8(L) 14.0 - 18.0 G/DL 04/27/2023 8:28 AM [facility] HCT 31.2(L) 43.0 - 54.0 % 04/27/2023 8:28 AM [facility] MCV 86.2 80.0 - 94.0 FL 04/27/2023 8:28 AM [facility] MCH 27.1 27.0 - 31.0 PG 04/27/2023 8:28 AM [facility] MCHC 31.4(L) 32.0 - 36.0 G/DL 04/27/2023 8:28 AM [facility] RDW 13.8 11.5 - 14.5 % 04/27/2023 8:28 AM [facility] PLT 209 130 - 400 x10'3/uL 04/27/2023 8:28 AM [facility] MPV 9.8 9.3 - 12.2 FL 04/27/2023 8:28 AM [facility] CBC COMMENT AUTOMATED RBC MORPHOLOGY AND PLATELET EVALUATION NORMAL 04/27/2023 8:28 AM [facility] NEUTROPHILS % 64.3 % 04/27/2023 8:28 AM [facility] LYMPHOCYTES % 25.3 % 04/27/2023 8:28 AM [facility] MONOCYTES % 6.8 % 04/27/2023 8:28 AM [facility] EOSINOPHILS 2.9 % 04/27/2023 8:28 AM [facility] BASOPHILS 0.4 % 04/27/2023 8:28 AM [facility] IMMATURE GRANS % 0.3 % 04/27/20 8:28 AM [facility] NRBC 0.0 % 04/27/2023 8:28 AM [facility] ABS. NEUTROPHILS TOTAL 5.09 1.80 - 7.70 x10'3/uL 04/27/2023 8:28 AM [facility] ABS. LYMPHOCYTES 2.00 1.00 - 4.80 x10'3/uL 04/27/2023 8:28 AM [facility] ABS. MONOCYTES 0.54 0.30 - 0.82 x10'3/uL 04/27/2023 8:28 AM [facility] ABS. EOSINOPHILS 0.23 0.04 - 0.54 x10'3/uL 04/27/2023 8:28 AM [facility] ABS. BASOPHILS 0.03 0.01 - 0.08 x10'3/uL 04/27/2023 8:28 AM [facility] ABS. IMMATURE GRANULOCYTES 0.02 0.00 - 0.49 x10'3/uL 04/27/2023 8:28 AM [facility] ABS. NUCLEATED RBC'S 0.00 0.00 - 0.01 x10'3/uL 04/27/2023 8:28 AM [facility] 04/27/2023 8:07 AM [facility] Herb Burnett MD LABORATORY Final Re sult [facility] [address] [id number], [place] [phone] * (ABNORMAL) COMPREHENSIVE METABOLIC PANEL (04/27/2023 8:07 AM [facility]) GLUCOSE 126(H) 70 - 99 MG/DL 04/27/2023 9:02 AM [facility] BUN 18 7 - 18 MG/DL 04/27/2023 9:02 AM [facility] CREATININE S/P/B 0.90 0.7 - 1.3 MG/DL 04/27/2023 9:02 AM [facility] SODIUM S/P/B 140 136 - 145 MMOL/L 04/27/2023 9:02 AM [facility] POTASSIUM S/P/B 3.0(LL) 3.5 - 5.1 MMOL/L 04/27/2023 9:02 AM [facility] Comment: Critical Result(s) Called at: 09:01:05 on 04/27/2023 by: MECHE NELSON to and read back by:ENRRIQUE CHLORIDE S/P/B 104 100 - 108 MMOL/L 04/27/2023 9:02 AM [facility] CO2 27.2 21 - 32 MMOL/L 04/27/2023 9:02 AM [facility] CALCIUM S/P/B 8.5 8.5 - 10.1 MG/DL 04/27/2023 9:02 AM [facility] BILIRUBIN TOTAL S/P/B 0.3 0.2 - 1.2 MG/DL 04/27/2023 9:02 AM [facility] Comment: THIS ASSAY IS NOT RECOMMENDED FOR PATIENTS UNDERGOING TREATMENT WITH ELTROMBOPAG DUE TO THE POTENTIAL FOR FALSELY ELEVATED RESULTS. TOTAL PROTEIN S/P/B 6.7 6.4 - 8.2 G/DL 04/27/2023 9:02 AM [facility] ALBUMIN S/P/B 2.7(L) 3.4 - 5.0 G/DL 04/27/2023 9:02 AM [facility] AST 13(L) 15 - 37 U/L 04/27/2023 9:02 AM [facility] ALT 12(L) 16 - 60 U/L 04/27/2023 9:02 AM [facility] ALKALINE PHOSPHATASE S/P/B 82 50 - 136 U/L 04/27/2023 9:02 AM [facility] ANION GAP 8.8 5 - 15 MMOL/L 04/27/2023 9:02 AM [facility] BUN CREATININE RATIO 20.0 6 - 26 04/27/2023 9:02 AM [facility] A/G RATIO 0.7(L) 1.0 - 2.0 RATIO 04/27/2023 9:02 AM [facility] GFR ESTIMATE >90 >90 ML/MIN/1.7 3 M2 04/27/2023 9:02 AM [facility] Comment: NOTE: eGFR is not calculated for patients <18 years of age. This is an estimated GFR calculation using the new CKD EPI creatinine equation without race and so does not require a correction factor for race. This estimated GFR should not be used for calculating drug doses. 04/27/2023 8:07 AM STYRENE DEHYDRATION REACTOR OPERATOR Herb Burnett MD LABORATORY Final Re sult [facility] [address] [place] [address], [place] [phone] * (ABNORMAL) HEMOGLOBIN, GLYCOSYLATED (04/27/2023 8:07 AM STYRENE DEHYDRATION REACTOR OPERATOR) HGB A1C 7.7(H) <5.7 % 04/27/2023 2:01 PM STYRENE DEHYDRATION REACTOR OPERATOR [facility] Comment: ADA GUIDELINES 2010 5.7 TO 6.4% INCREASED RISK OF DIABETES > OR = 6.5% CONSISTENT WITH DIABETES TESTING PERFORMED AT [facility] [id number] [place] [address] ??[id number] ESTIMATED AVG GLUCOSE 174 mg/dL 04/27/2023 2:01 PM STYRENE DEHYDRATION REACTOR OPERATOR [facility] 04/27/2023 8:07 AM STYRENE DEHYDRATION REACTOR OPERATOR Herb Burnett MD LABORATORY Final Re sult [facility] [address] [place] [address], [place] [phone] documented in this encounter Visit Diagnoses Diagnosis Scrotal abscess- Primary 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 Vitamin D deficiency Unspecified vitamin D deficiency Type 1 diabetes mellitus with foot ulcer (CMS/HCC [facility]HS/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
--- OUTSIDE RECORDS SUMMARY | 2024-06-08 00:03 | XMS_ITS | Encounter Summary ---
Author Organization [facility] Address [address] [place] [address]. [place], [place] [address] [place] [address] Care Team Providers Care Web Development Intern Name Role Phone Herb Burden MD Primary Care Provider + Encounter Details Date Type Department Care Team (Latest Contact Info) Description 06/03/2023 Travel Social History Tobacco Use Types Packs/Day [...] on filedocumented in this encounter Care Teams Web Development Intern Relationship Specialty Start Date End Date Herb Burden MD [address] [facility] [address] [place] [address] PCP - General FAMILY PRACTICE 02/26/23 documented as of this encounter
--- OUTSIDE RECORDS SUMMARY | 2024-06-08 00:03 | XMS_ITS | Encounter Summary ---
Author Organization [facility] Address [facility]. [place], [place] [address] [place] [address] Care Team Providers Care Desizing Machine Back Tender Name Role Phone Unavailable Primary Care Provider Unavailabl e Encounter Details Date Type Department Care Team (Late st Contact Info) Description 03/05/2001 Abstract [facility] - Physical Therapy [address] [place], [place] [phone] Tk Saleem MD [address] [place] [address] Social History Tobacco Use Types Packs/Day Years [...]
--- OUTSIDE RECORDS SUMMARY | 2024-06-08 00:03 | XMS_ITS | Encounter Summary ---
Author Organization [facility] Address [facility]. [place], [place] [address] [place] [address] Care Team Providers Care Canceling Machine Operator Name Role Phone Herb Burden MD Primary Care Provider + Reason for Referral * Consultation (Routine) - Closed Specialty Diagnoses / Procedures Referred By Contac t Referred To Contact PODIATRY Diagnoses Type 1 diabetes mellitus with foot ulcer ([facility]) Procedures OFFICE/OUTPATIENT NEW LOW MDM 30-44 MINUTES OFFICE/OUTPT VISIT,NEW,LEVL IV OFFICE/OUTPT VISIT,NEW,LEVL V OFFICE/OUTPT VISIT,EST,LEVL III OFFICE/OUTPT VISIT,EST,LEVL IV OFFICE/OUTPT VISIT,EST,LEVL V Herb Burden MD [address] [address] Phone: tel: fax: [facility] - [address] [address] Phone: tel: fax: Referral ID Status Reason Start Date Expiration Date V isits Requested Visits Authorized [id number] Closed Specialty Services 04/17/2023 05/18/2024 99 99 CRIB MANAGER Reason for Visit * Reason Onset Date Comments Information 04/17/2023 Encounter Details Date Type Department Care Team (Late st Contact Info) Description 04/17/2023 Telephone [facility] [address] [place] [address] Herb Burden MD [address] [place] [address] Information Social History Tobacco Use Types [...] as of this encounter Progress Notes * Herb Burden MD - 04/17/2023 4:00 PM CST Ok for podiatry referral CRIB MANAGER * Mraley Moody - 04/17/2023 3:27 PM CST Sourav, nurse from [facility] called to give Dr. Carrera an update. She said that patient's scrotal abscess is mostly healed and looks good. Patient's diabetic ulcer on his foot is still bad. She will continue to see him for wound care for a few more weeks but feels the patient would benefit from a referral to a mold shop supervisor. 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
--- OUTSIDE RECORDS SUMMARY | 2024-06-08 00:03 | XMS_ITS | Encounter Summary ---
Author Organization [facility] Address [address] [place] [address]. [place], [place] [address] [place] [address] Care Team Providers Care Decommissioning Well Site Manager Name Role Phone Herb Burden MD Primary Care Provider + Reason for Visit * Reason Comments New Patient Infection Buttocks all the way to scrotum Encounter Details Date Type Department Care Team (Late st Contact Info) Description 03/02/2023 1:00 PM CDT Office Visit [facility] [address] [place] [address] Herb Burden MD [address] [address] New Patient; Infection (Buttocks all the way to scrotum) Social History Tobacco Use Types Packs/Day Years Used Date Smoking Tobacco: Never Assessed Sex and Gender Information Value Date Recorded Sex Assigned at Not on file Legal Sex Male 5:25 PM CDT Gender Identity Not on file Sexual Orientation Not on file documented as of this encounter Last Filed Vital Signs Vital Sign Reading Time Taken Comments Blood Pressure 126/76 03/02/2023 11:27 AM CDT Pulse 122 03/02/2023 11:27 AM CDT Temperature 36.4 ??C (97.6 ??F) 03/02/2023 11:27 AM C DT Respiratory Rate 14 03/02/2023 11:27 AM CDT Oxygen Saturation 96% 03/02/2023 11:27 AM CDT Inhaled Oxygen Concentration - - Weight 162.8 kg (359 lb) 03/02/2023 11:27 AM CDT Height 198.1 cm (6' 6 ) 03/02/2023 11:27 AM CDT Body Mass Index 41.49 03/02/2023 11:27 AM CDT documented in this encounter Patient Instructions * Patient Instructions* Herb Burden MD - 03/02/2023 1:00 PM CDT Antibiotic and pain medicine. If does not improved in next few days would refer to urology documented in this encounter Progress Notes * Herb Burden MD - 03/02/2023 1:00 PM CDT Chief Complaint: New Patient and Infection (Buttocks all the way to scrotum) HPI: Rene Hyatt is a 42-year-old male here for complaints of redness to buttock for the pasttwo weeks. Then about five days ago started getting pain and swelling to scrotum. No fever or dysuria. ROS: Review of Systems Constitutional: Negative for fever. Respiratory: Negative for cough. Cardiovascular: Negative for chest pain. Gastrointestinal: Negative for abdominal pain. Genitourinary: Negative for dysuria. Physical Exam Cardiovascular: Rate and Rhythm: Regular rhythm. Tachycardia present. Pulmonary: Breath sounds: Normal breath sounds. Abdominal: Palpations: Abdomen is soft. Tenderness: There is no abdominal tenderness. Genitourinary: Comments: There is moderate erythema to buttock and perineum. There is significant swelling to scrotum on both sides with moderately severe tenderness but no mass. No drainage. Musculoskeletal: Cervical back: Neck supple. Neurological: Mental Status: He is alert. Current Outpatient Medications Medication Sig ??? doxycycline hyclate (VIBRAMYCIN) 100 MG capsule Take 1 capsule (100 mg total) by mouth 2 (two) times daily for 10 days. ??? traMADol (ULTRAM) 50 MG tablet Take 1 tablet (50 mg total) by mouth every 6 (six) hours as needed for Pain. Indications: Acute Pain < 7 Day Supply No current facility-administered medications for this visit. History reviewed. No pertinent past medical history. Past Surgical History: Procedure Laterality Date ??? EXTRACT ERUPT TOOTH Bilateral wisdom teeth Social History Tobacco Use ??? Smoking status: Not on file ??? Smokeless tobacco: Not on file Substance Use Topics ??? Alcohol use: Not on file Family History Problem Relation Name Age of Onset ??? Diabetes Mother ??? Pancreatic cancer Father Vitals: 03/02/23 1127 BP: 126/76 Pulse: (!) 122 Temp: 97.6 ??F (36.4 ??C) TempSrc: Skin Weight: (!) 162.8 kg (359 lb) Height: 6' 6 (1.981 m) Diagnoses/Impression: Cellulitis of buttock (primary encounter diagnosis) Orchitis of both testicles Recommendations and Plan: Orders Placed This Encounter ??? doxycycline hyclate (VIBRAMYCIN) 100 MG capsule Sig: Take 1 capsule (100 mg total) by mouth 2 (two) times daily for 10 days. Dispense: 20 capsule Refill: 0 ??? ketorolac (TORADOL) injection 30 mg ??? traMADol (ULTRAM) 50 MG tablet Sig: Take 1 tablet (50 mg total) by mouth every 6 (six) hours as needed for Pain. Indications: Acute Pain < 7 Day Supply Dispense: 28 tablet Refill: 0 Patient Instructions Antibiotic and pain medicine. If does not improved in next few days would refer to urology HERB BURDEN MD Referring Provider: Self Referral PCP: HERB BURDEN MD documented in this encounter Plan of Treatment Not on file documented as of this encounter Visit Diagnoses Diagnosis Cellulitis of buttock- Primary Cellulitis and abscess of buttock Orchitis of both testicles Orchitis and epididymitis, unspecified documented in this encounter Administered Medications Inactive Administered Medications - up to 3 most recent administrations Medication Order MAR Action Action Date Dose Rate Site ketorolac (TORADOL) injection 30 mg 30 mg, Intramuscular, Once, 1 dose, On 03/02/23 at 1200Indications:Cellulitis of buttock,Orchitis of both testicles Given 03/02/2023 11:45 AM CDT 30 mg Left Deltoid documented in this encounter Care Teams Decommissioning Well Site Manager Relationship Specialty Start Date End Date Herb Burden MD [address] [place] [phone] PCP - General FAMILY PRACTICE 02/26/23 documented as of this encounter
--- OUTSIDE RECORDS SUMMARY | 2024-06-08 00:03 | XMS_ITS | Encounter Summary ---
Author Organization [facility] Address [address] [place] [address]. [place], [place] [address] [place] [address] Care Team Providers Care Daycare Director Name Role Phone Herb Burden MD Primary Care Provider + Reason for Visit * Reason Onset Date Comments FYI 05/06/2023 Encounter Details Date Type Department Care Team (Late st Contact Info) Description 05/06/2023 Telephone [facility] [address] [place] [address] Herb Burden MD [address] [place] [address] FYI Social History Tobacco Use Types Packs/Day Years [...] as of this encounter Progress Notes * Cookie Conklin - 05/06/2023 9:52 AM CST [facility] home health calling to say pt's wounds have all healed. They are discharging him as of today. R BELT CONVEYOR documented in this encounter Plan of Treatment Not on file documented as of this encounter Visit Diagnoses Not on filedocumented in this encounter Care Teams Daycare Director Relationship Specialty Start Date End Date Herb Burden MD [address] [facility] [address] [place] [phone] PCP - General FAMILY PRACTICE 02/26/23 documented as of this encounter
--- OUTSIDE RECORDS SUMMARY | 2024-06-08 00:03 | XMS_ITS | Encounter Summary ---
Author Organization [facility] Address [address] [place] [address]. [place], [place] [address] [place] [address] Care Team Providers Care Development Assistant Name Role Phone Herb Burden MD Primary Care Provider + Encounter Details Date Type Department Care Team (Latest Contact Info) Description 07/21/2023 Travel Social History Tobacco Use Types Packs/Day [...] on filedocumented in this encounter Care Teams Development Assistant Relationship Specialty Start Date End Date Herb Burden MD [address] [facility] [address] [place] [address] PCP - General FAMILY PRACTICE 02/26/23 documented as of this encounter
--- OUTSIDE RECORDS SUMMARY | 2024-06-08 00:03 | XMS_ITS | Encounter Summary ---
Author Organization [facility] Address [facility]. [place], [place] [address] [place] [address] Care Team Providers Care Proof Machine Operator Supervisor Name Role Phone Herb Burden MD Primary Care Provider + Reason for Visit * Reason Onset Date Comments Medication Request 05/22/2023 Encounter Details Date Type Department Care Team (Late st Contact Info) Description 05/22/2023 Telephone [facility] [address] [place] [address] Herb Burden MD [address] [facility] [address] [place] [address] Medication Request Social History Tobacco Use Types Packs/Day Years [...] as of this encounter Progress Notes * Nohemi Pearce Doeding - 05/22/2023 1:21 PM CST Medication Refill Task: Name of the medication(s): Insulin Pen Needle (TRUEPLUS PEN NEEDLES) 31G X 5 MM Insulin Lispro w/ Trans Port 100 UNIT/ML Solution Pen-injector insulin glargine (LANTUS SOLOSTAR) 100 UNIT/ML injection ( dulaglutide (TRULICITY) 1.5 MG/0.5ML injection Dose of the medication(s): 30 or 90 day supply: (N/A for Controlled Substances) Pharmacy Name: [facility] [employer] documented in this encounter Plan of Treatment Not on file documented as of this encounter Visit Diagnoses Diagnosis Type 1 diabetes mellitus with foot ulcer ([facility]) 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
--- OUTSIDE RECORDS SUMMARY | 2024-06-08 00:03 | XMS_ITS | CONTINUITY OF CARE DOCUMENT ---
Author Name kevin brown Address Unknown Organization [facility] Address [address] [facility] [address] [place] [address] Phone [phone] Care Team Providers Care Post Tronic Machine Operator Name Role Phone Pallavi Musa MD Unavailable [phone] RAFIQ HERNANDEZ MD Unavailable [phone] RAFIQ HERNANDEZ MD Unavailable [phone] PROBLEMS Condition Status Date Provider Notes Edema - localized active Pallavi Garza WEST- on CPAP active Pallavi Musa MD Cardiac murmur active Pallavi Musa MD Hypertension active Pallavi Musa MD Hyperlipidemia active Pallavi Musa MD Diabetes, Type 1 active Pallavi Musa MD ENCOUNTERS Date Type Provider Location Encounter Diagnosis - In-person encounter Office Visit Pallavi Musa MD [facility] WEST- on CPAP - In-person encounter Office Visit Pallavi Musa MD [facility] Edema - localized - In-person encounter Office Visit Pallavi Musa MD [facility] - In-person encounter Office Visit Pallavi Musa MD [facility] Diabetes, Type 1HyperlipidemiaHyp ertensionCardiac murmur VITAL SIGNS Date Observation Value Provider Body Mass Index (Ratio) 46.12 kg/m2 Rufino Antonty blood pressure, diastolic 84 mm[Hg] Li nkLogic blood pressure, systolic 136 mm[Hg] Monica [facility] weight E&M 389 [lb_av] Mignon Javier blood pressure, cuff size l398 Slick whiteside Javier blood pressure, diastolic 84 mm[Hg] Slick whiteside Javier blood pressure, systolic 136 mm[Hg] Tab itha [place] oxygen saturation, oximetry 98 % Mignon Javier pulse rate 88 /min Mignon Javier respiratory rate E&M 12 /min Mignon Javier height E&M 77 [in_i] Mignon Javier Body Mass Index (Ratio) 40.91 kg/m2 Joelle Musa MD Body Mass Index (Ratio) 40.55 kg/m2 Joelle Musa MD blood pressure, diastolic 92 mm[Hg] Nakia nkLog blood pressure, systolic 160 mm[Hg] Monica pulse rate 82 /min Logan blood pressure, cuff size regular [facility] et blood pressure, diastolic 92 mm[Hg] Lawrence et blood pressure, systolic 160 mm[Hg] Daysi ret oxygen saturation, oximetry 98 % Logan respiratory rate E&M 16 /min Logan weight E&M 345 [lb_av] Logan y height E&M 77 [in_i] Logan [facility] y blood pressure, diastolic 76 mm[Hg] Nakia nkLogic blood pressure, systolic 137 mm[Hg] Monica og weight E&M 342 [lb_av] [facility] height E&M 77 [in_i] [facility] pulse rate 94 /min [facility] blood pressure, cuff size regular [facility] blood pressure, diastolic 76 mm[Hg] [facility] blood pressure, systolic 137 mm[Hg] [facility] E&M 16 /min [facility] ille oxygen saturation, oximetry 97 % [facility] Body Mass Index (Ratio) 40.08 kg/m2 Joelle Musa MD blood pressure, diastolic 82 mm[Hg] Li nkLogic blood pressure, systolic 163 mm[Hg] Monica kLog respiratory rate E&M 16 /min [facility] pulse rate 93 /min [facility] blood pressure, cuff size regular [facility] blood pressure, diastolic 82 mm[Hg] [facility] blood pressure, systolic 163 mm[Hg] [facility] oxygen saturation, oximetry 98 % [facility] weight E&M 338 [lb_av] [facility] height E&M 77 [in_i] [facility] ALLERGIES Allergy Name Onset Date Reaction Criticality Status POLLEN Low Criticality active HISTORY OF MEDICATION USE Medication Status Instructions Dates Provider Indications Com ments gabapentin 300 mg capsule active TAKE 1 CAPSULE BY MOUTH 3 TIMES DAILY Pallavi Musa MD pantoprazole 40 mg tablet,delayed release (DR/EC) active Take 1 tablet by mouth once daily Pallavi Musa MD Wellbutrin XL 150 mg tablet extended release 24 hr active TAKE 1 TABLET BY MOUTH EVERY DAY Pallavi Musa MD Lasix 20 mg tablet active Take 1 tablet by mouth every other day 3 Pallavi Musa MD losartan 25 mg tablet active Take 3 tablet by mouth once daily Pallavi Musa MD on 75mg total qd metformin 1,000 mg tablet active TAKE 1 TABLET BY MOUTH TWICE DAILY Pallavi Musa MD atorvastatin 20 mg tablet active TAKE 1 TABLET BY MOUTH EVERY DAY Pallavi Musa MD Trulicity 1.5 mg/0.5 mL pen injector active Inject 1/2 ml subcutaneously once a week Pallavi Musa MD Vitamin D2 1,250 mcg (50,000 unit) capsule active Nora Javier SOCIAL HISTORY Date Observation Value Provider smoking status Never smoker Pallavi kumar MD smoking status Never smoker Nora Javier number of grandchildren Pallavi Musa MD smoking status Never smoker Nora Javier INSURANCE PROVIDERS Payer name Policy type / Coverage type [place] [employer] party ID [place] [employer] (2) Medicaid [id number] ADVANCE DIRECTIVES Name Date DISCUSSED - NO DECISION MADE TREATMENT PLAN Date Name Performer Cardiology:CONCLUSIO NS: 1 . Normal left ventricular systolic function. Normal left ventricular size. Normal left ventricular wall thickness. There is E to A w ave reversal consistent with impaired LV relaxation. E/E': 6.1. Left ventricular ejection fraction is measured at 60 %. 2 . Mild enlargement of right ventricle. Normal right ventricular systolic function. 3 . There is mild tricuspid regurgitation. 4 . Pulmonic valve leaflets appear structurally normal. Elevated pulmonic valve velocities by Doppler. There is mild pulmonic r egurgitation. E lectronically Signed By: Pallavi Musa MD, FAC 2 024-01-17 11:35:26 CORRECTIONAL PROBATION OFFICER C C: Pallavi Musa MD, FACC Pallavi Musa MD Cardiology: H is updated medication list for this problem includes: Atorvastatin 20 Mg Tablet (Atorvastatin) Pallavi Musa MD Cardiology: H is updated medication list for this problem includes: Lasix 20 Mg Tablet (Furosemide) ..... Take 1 tablet by mouth every other day Losartan 25 Mg Tablet (Losartan) BP today: 160/92 P rior BP: 137/76 (07/29/2023) Pallavi Musa MD Cardiology:improved Pallavi zaman MD Cardiology: H is updated medication list for this problem includes: Metformin 1,000 Mg Tablet (Metformin) ..... Take 1 tablet by mouth twice daily Trulicity 1.5 Mg/0.5 Ml Pen Injector (Dulaglutide) ..... Inject 1/2 ml subcutaneously once a week Losartan 25 Mg Tablet (Losartan) ..... Take 1 tablet by mouth once daily Pallavi Musa MD Cardiology:The patie nt is using CPAP on a regular basis. The patient has been benefiting from therapy and should continue use. T his visit has been a part of the consistent, comprehensive, and ongoing management of the chronic medical condition(s) listed above for the patient. Pallavi Musa MD Cardiology:Start Lasix 20mg ever y other day Pallavi Musa MD Cardiology: H is updated medication list for this problem includes: Atorvastatin 20 Mg Tablet (Atorvastatin) Pallavi Musa MD Cardiology: H is updated medication list for this problem includes: Lasix 20 Mg Tablet (Furosemide) ..... Take 1 tablet by mouth every other day Losartan 25 Mg Tablet (Losartan) BP today: 160/92 P rior BP: 137/76 (07/29/2023) Pallavi Musa MD Cardiology:Has WEST needs titrati on. Pallavi Musa MD Cardiology:Echo revi ewed. C ONCLUSIONS: 1 . Normal left ventricular systolic function. Normal left ventricular size. Normal left ventricular wall thickness. There is E to A w ave reversal consistent with impaired LV relaxation. E/E': 6.1. Left ventricular ejection fraction is measured at 60 %. 2 . Mild enlargement of right ventricle. Normal right ventricular systolic function. 3 . There is mild tricuspid regurgitation. 4 . Pulmonic valve leaflets appear structurally normal. Elevated pulmonic valve velocities by Doppler. There is mild pulmonic r egurgitation. Pallavi Musa MD Cardiology: H is updated medication list for this problem includes: Losartan 25 Mg Tablet (Losartan) Metformin 1,000 Mg Tablet (Metformin) Trulicity 1.5 Mg/0.5 Ml Pen Injector (Dulaglutide) Pallavi Musa MD Cardiology:Doesn't h ave BP machine, recommend reduction of sodium in diet H is updated medication list for this problem includes: Losartan 25 Mg Tablet (Losartan) BP today: 163/82 Pallavi Musa MD Cardiology:Needs ech o. Says he has had a murmur for lifetime Pallavi Musa MD Cardiology:Had blood work done a few weeks ago, try to get report H is updated medication list for this problem includes: Atorvastatin 20 Mg Tablet (Atorvastatin) Pallavi Musa MD Date Name EKG Auto-CPAP 6cm H2O -1 8cm H2O Sleep Study Titratio n EKG Sleep Study Titratio n Sleep Study Titratio n EKG Complete Echo Sleep Study Home HISTORY OF PROCEDURES Procedure Date Procedure Name Provider Procedure Notes S tatus Complex e/m visit add on Pallavi Musa MD completed EKG Pallavi Musa MD compl eted
--- OUTSIDE RECORDS SUMMARY | 2024-06-08 00:03 | XMS_ITS | Encounter Summary ---
Author Organization [facility] Address [address] [place] [address]. [place], [place] [id number] [place] [address] Care Team Providers Care Retail Customer Service Representative Name Role Phone Herb Burden MD Primary Care Provider + Encounter Details Date Type Department Care Team (Latest Contact Info) Description 04/27/2023 Travel Social History Tobacco Use Types Packs/Day [...] on filedocumented in this encounter Care Teams Retail Customer Service Representative Relationship Specialty Start Date End Date Herb Burden MD [address] [facility] [address] [place] [address] PCP - General FAMILY PRACTICE 02/26/23 documented as of this encounter
--- OUTSIDE RECORDS SUMMARY | 2024-06-08 00:03 | XMS_ITS | Encounter Summary ---
Author Organization [facility] Address [address] [place] [address]. [place], [place] [id number] [place] [address] Care Team Providers Care International Sales Manager Name Role Phone Herb Burden MD Primary Care Provider + Encounter Details Date Type Department Care Team (Latest Contact Info) Description 03/25/2023 Scan [facility] SRV[facility] Scanned, Doc [...] on filedocumented in this encounter Care Teams International Sales Manager Relationship Specialty Start Date End Date Herb Burden MD [address] [facility] [address] [place] [id number] PCP - General FAMILY PRACTICE 02/26/23 documented as of this encounter
--- OUTSIDE RECORDS SUMMARY | 2024-06-08 00:03 | XMS_ITS | Encounter Summary ---
Author Organization [facility] Address [address] [place] [address]. [place], [place] [id number] [place] [id number] Care Team Providers Care Environmental Studies Program Director Name Role Phone Herb Burden MD Primary Care Provider + Reason for Referral * Imaging (Emergency) - New Request Specialty Diagnoses / Procedures Referred By Contac t Referred To Contact RADIOLOGY Procedures CT FACIAL BONES WO CON Kemi Landon NP [address] [place] [address] Phone: tel: fax: Referral ID Status Reason Start Date Expiration Date V isits Requested Visits Authorized [id number] New Request 07/21/2023 07/21/2024 1 1 [facility] * Imaging (Emergency) - New Request Specialty Diagnoses / Procedures Referred By Contac t Referred To Contact RADIOLOGY Procedures CT HEAD WO CON Kemi Landon NP [address] [place] [address] Phone: tel: fax: Referral ID Status Reason Start Date Expiration Date V isits Requested Visits Authorized [id number] New Request 07/21/2023 07/21/2024 1 1 [facility] Reason for Visit * Reason Comments Syncope Encounter Details Date Type Department Care Team ([facility] st Contact Info) Description 07/21/2023 10:01 PM [facility] - 07/22/2023 4:35 AM [facility] Emergency [facility] [place] [address] Kalia Nance MD [address] [place] [id number] Syncope Discharge Disposition: Home or Self Care (Routine [...] Comments Blood Pressure 158/82 07/22/2023 3:00 AM [facility] Pulse 89 07/22/2023 1:35 AM [facility] Temperature 36.4 ??C (97.5 ??F) 07/21/2023 9:50 PM CS T Respiratory Rate 20 07/22/2023 1:35 AM [facility] Oxygen Saturation 97% 07/22/2023 3:00 AM [facility] Inhaled Oxygen Concentration - - Weight 172.4 kg (380 lb) 07/21/2023 9:50 PM [facility] Height 198.1 cm (6' 6 ) 07/21/2023 9:50 PM [facility] Body Mass Index 43.91 07/21/2023 9:50 PM [facility] documented in this encounter Discharge Instructions * Attachments The following attachments cannot be sent through Care Everywhere. * Syncope (Fainting) Discharge Instructions ([place]) documented in this encounter Medications at Time of Discharge aspirin-acetamin ophen-caffeine (EXCEDRIN MIGRAINE) 250-250-65 MG tablet Take 1 tablet by mouth. cephALEXin (KEFLEX) 500 MG capsuleIndicatio ns:Paronychia of second toe of right foot 2 po bid 40 capsule 04/27/2023 dulaglutide (TRULICITY) 1.5 MG/0.5ML injectionIndicat ions:Diabetes Mellitus Inject 1.5 mg into the skin once a week. Indications: Diabetes 2 mL 2 05/22/2023 ferrous sulfate, 65 mg elemental, 325 (65 FE) MG tablet Take 1 tablet (325 mg total) by mouth. 06/02/2023 Glucose Blood ([employer] BLOOD GLUCOSE TEST) test strip Use as directed up to four times a day. 03/11/2023 insulin glargine (LANTUS SOLOSTAR) 100 UNIT/ML injection (PEN)Indications :Type 1 diabetes mellitus with foot ulcer (CMS/HCC HHS/HCC) Inject 20 Units into the skin daily. 12 mL 5 05/22/2023 Insulin Lispro w/ Trans Port 100 UNIT/ML Solution Pen-injectorIndi cations:Type 1 diabetes mellitus with foot ulcer (CMS/HCC HHS/HCC) Inject 10 Units into the skin 3 (three) times daily. 3 mL 5 05/22/2023 insulin lispro, 1 Unit Dial, (HUMALOG) 100 UNIT/ML injection (PEN) Inject 10 Units into the skin 3 (three) times daily before meals. 06/17/2023 Insulin Pen Needle (TRUEPLUS PEN NEEDLES) 31G X 5 MM MiscIndications: Type 1 diabetes mellitus with foot ulcer (CMS/HCC HHS/HCC) Use with insulin pens 100 each 5 05/22/2023 Isopropyl Alcohol 70 % MiscIndications: Type 1 diabetes mellitus with foot ulcer (CMS/HCC HHS/HCC) Use with injections and blood glucose checks 400 each 3 04/15/2023 Lancets (ONETOUCH DELICA PLUS [id number]) MiscIndications: Type 1 diabetes mellitus with foot ulcer (CMS/HCC HHS/HCC) 1 each by Does not apply route 4 (four) times daily. 400 each 3 04/15/2023 losartan (COZAAR) 25 MG tabletIndication s:Type 1 diabetes mellitus with foot ulcer (CMS/HCC HHS/HCC) Take 1 tablet (25 mg total) by mouth daily. 30 tablet 07/02/2023 losartan (COZAAR) 50 MG tablet Take 1 tablet (50 mg total) by mouth daily. 07/02/2023 metFORMIN (GLUCOPHAGE) 1000 MG tabletIndication s:Type 1 diabetes mellitus with foot ulcer (CMS/HCC HHS/HCC) Take 0.5 tablets (500 mg total) by mouth 2 (two) times daily. 30 tablet 2 05/22/2023 oyster shell calcium 500 mg, elemental, (OSCAL) 500 MG tabletIndication s:Vitamin D deficiency Take 1 tablet (500 mg total) by mouth daily. 30 tablet 07/02/2023 pantoprazole EC (PROTONIX) 40 MG tabletIndication s:Type 1 diabetes mellitus with foot ulcer (CMS/HCC HHS/HCC) Take 1 tablet (40 mg total) by mouth daily. 30 tablet 07/02/2023 potassium chloride CR (KLOR-CON M20) 20 MEQ tabletIndication s:Hypokalemia Take 1 tablet (20 mEq total) by mouth daily. 30 tablet 04/27/2023 tamsulosin (FLOMAX) 0.4 MG Cap Take 1 capsule (0.4 mg total) by mouth daily. 07/16/2023 vitamin D2, ergocalciferol, (DRISDOL) 1.25 mg capsule Take 1 capsule (1.25 mg total) by mouth every 7 days. 03/26/2023 vitamin D3, cholecalciferol, 1.25 mg capsuleIndicatio ns:Vitamin D deficiency Take 1 capsule (50,000 Units total) by mouth 2 (two) times a week. 8 capsule 2 04/01/2023 atorvastatin (LIPITOR) 20 MG tabletIndication s:Type 1 diabetes mellitus with foot ulcer (CMS/HCC HHS/HCC) Take 1 tablet (20 mg total) by mouth daily. 30 tablet 07/02/2023 4 documented as of this encounter ED Notes * Kalia Nance MD - 07/22/2023 4:12 AM CST Emergency Department Note Chief Complaint Chief Complaint Patient presents with Syncope History of Present Illness Syncope Patient presents to the department with a syncopal episode. He was walking from the ER to his car when he stumbled the next thing he knew he was laying on the ground. He is unsure what happened. He has a right knee pain. He denies any recent specific symptoms although states it could be stress. He was in the emergency department with his mom. Complaining of right knee pain although no concern forfracture Medical History ALLERGIES: Review of patient's allergies indicates: No Known Allergies MEDICATIONS: Prior to Admission medications Medication Sig Start Date End Date Taking? Authorizing Provider ferrous sulfate, 65 mg elemental, 325 (65 FE) MG tablet Take 1 tablet (325 mg total) by mouth. 06/02/23 Yes Default History Genericprovider insulin lispro, 1 Unit Dial, (HUMALOG) 100 UNIT/ML injection (PEN) Inject 10 Units into the skin 3 (three) times daily before meals. 06/17/23 Yes Default History Genericprovider losartan (COZAAR) 50 MG tablet Take 1 tablet (50 mg total) by mouth daily. 07/02/23 Yes Default History Genericprovider tamsulosin (FLOMAX) 0.4 MG Cap Take 1 capsule (0.4 mg total) by mouth daily. 07/16/23 Yes Default History Genericprovider vitamin D2, ergocalciferol, (DRISDOL) 1.25 mg capsule Take 1 capsule (1.25 mg total) by mouth every7 days. 03/26/23 Yes Default History Genericprovider xzfggeh-bggccygjbctle-dlqlqxli (EXCEDRIN MIGRAINE) 250-250-65 MG tablet Take 1 tablet by mouth. Default History Genericprovider atorvastatin (LIPITOR) 20 MG tablet Take 1 tablet (20 mg total) by mouth daily. 07/02/23 Herb Burden MD cephALEXin (KEFLEX) 500 MG capsule 2 po bid 04/27/23 Herb Burden MD dulaglutide (TRULICITY) 1.5 MG/0.5ML injection Inject 1.5 mg into the skin once a week. Indications: Diabetes 05/22/23 Herb Burden MD Glucose Blood ([employer] BLOOD GLUCOSE TEST) test strip Use as directed up to four times a day. 03/11/23 Default History Genericprovider insulin glargine (LANTUS SOLOSTAR) 100 UNIT/ML injection (PEN) Inject 20 Units into the skin daily.05/22/23 Herb Burden MD Insulin Lispro w/ Trans Port 100 UNIT/ML Solution Pen-injector Inject 10 Units into the skin 3 (three) times daily. 05/22/23 Herb Burden MD Insulin Pen Needle (TRUEPLUS PEN NEEDLES) 31G X 5 MM Misc Use with insulin pens 05/22/23 Herb Burden MD Isopropyl Alcohol 70 % Misc Use with injections and blood glucose checks 04/15/23 Herb Burden MD Lancets (ONETOUCH DELICA PLUS [id number]) Misc 1 each by Does not apply route 4 (four) times daily. 04/15/23 Herb Burden MD losartan (COZAAR) 25 MG tablet Take 1 tablet (25 mg total) by mouth daily. 07/02/23 Herb Burden MD metFORMIN (GLUCOPHAGE) 1000 MG tablet Take 0.5 tablets (500 mg total) by mouth 2 (two) times daily.05/22/23 Herb Burden MD oyster shell calcium 500 mg, elemental, (OSCAL) 500 MG tablet Take 1 tablet (500 mg total) by mouthdaily. 07/02/23 Herb Burden MD pantoprazole EC (PROTONIX) 40 MG tablet Take 1 tablet (40 mg total) by mouth daily. 07/02/23 Beto Burden MD potassium chloride CR (KLOR-CON M20) 20 MEQ tablet Take 1 tablet (20 mEq total) by mouth daily. 04/27/23 Herb Burden MD vitamin D3, cholecalciferol, 1.25 mg capsule Take 1 capsule (50,000 Units total) by mouth 2 (two) times a week. 04/01/23 Herb Burden MD PAST MEDICAL HISTORY: No past medical history on file. PAST SURGICAL HISTORY: Past Surgical History: Procedure Laterality Date EXTRACT ERUPT TOOTH Bilateral wisdom teeth FAMILY HISTORY: Family History Problem Relation Name Age of Onset Diabetes Mother Pancreatic cancer Father SOCIAL HISTORY: Social History Tobacco Use Smoking status: Never Passive exposure: Never Smokeless tobacco: Never Review of Systems ROS negative except for what is documented in the HPI Physical Exam Filed Vitals: 07/21/23 2150 07/22/23 0135 07/22/23 0300 BP: (!) 173/85 (!) 167/83 (!) 158/82 Pulse: 95 89 Resp: 22 20 Temp: 97.5 ??F (36.4 ??C) TempSrc: Temporal SpO2: 100% 99% 97% Weight: (!) 172.4 kg (380 lb) Height: 1.981 m (6' 6 ) Physical Exam Diagnostic Studies / Procedures ELECTROCARDIOGRAMS: Results for orders placed or performed during the hospital encounter of 07/21/23 ECG [address] 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 : 1980 Requested By: KEMI LANDON Order Number: [id number] Reading MD: Leonardo Hickman Measurements Intervals [place] Rate: 95 P: 41 MD: 188 QRS: 39 QRSD: 104 T: 41 QT: 334 QTc: 421 Interpretive Statements SINUS RHYTHM LOW QRS VOLTAGE IN PRECORDIAL LEADS [QRS DEFLECTION < 1.0 mV IN CHEST LEADS] INCOMPLETE RIGHT BUNDLE BRANCH BLOCK [90+ ms QRS DURATION, TERMINAL R IN V1/V2, 40+ ms S IN I/aVL/V4/V5/V6] No previous ECG available for comparison [facility] LABORATORY STUDIES: Results for orders placed or performed during the hospital encounter of 07/21/23 CBC W/DIFF AUTOMATED Result Value Ref Range WBC 8.5 4.5 - 11.0 x10'3/uL RBC 4.36 (L) 4.70 - 6.10 x10'6/uL HGB 11.6 (L) 14.0 - 18.0 G/DL HCT 36.0 (L) 43.0 - 54.0 % MCV 82.6 80.0 - 94.0 FL MCH 26.6 (L) 27.0 - 31.0 PG MCHC 32.2 32.0 - 36.0 G/DL RDW 15.9 (H) 11.5 - 14.5 % PLT 205 130 - 400 x10'3/uL MPV 9.9 9.3 - 12.2 FL DIFFERENTIAL TYPE AUTOMATED DIFFERENTIAL NEUTROPHILS 75.1 % LYMPHOCYTES 17.7 % MONOCYTES 5.4 % EOSINOPHILS 0.9 % BASOPHILS 0.5 % IMMATURE GRANS 0.4 % ABS. NEUTROPHILS TOTAL 6.35 1.80 - 7.70 x10'3/uL ABS. LYMPHOCYTES 1.50 1.00 - 4.80 x10'3/uL ABS. MONOCYTES 0.46 0.30 - 0.82 x10'3/uL ABS. EOSINOPHILS 0.08 0.04 - 0.54 x10'3/uL ABS. BASOPHILS 0.04 0.01 - 0.08 x10'3/uL ABS. IMMATURE GRANULOCYTES 0.03 0.00 - 0.49 x10'3/uL COMPREHENSIVE METABOLIC PANEL Result Value Ref Range GLUCOSE 166 (H) 70 - 99 MG/DL BUN 20 (H) 7 - 18 MG/DL CREATININE S/P/B 0.86 0.7 - 1.3 MG/DL SODIUM S/P/B 140 136 - 145 MMOL/L POTASSIUM S/P/B 3.7 3.5 - 5.1 MMOL/L CHLORIDE S/P/B 107 100 - 108 MMOL/L CO2 26.8 21 - 32 MMOL/L CALCIUM S/P/B 8.8 8.5 - 10.1 MG/DL BILIRUBIN TOTAL S/P/B 0.4 0.2 - 1.2 MG/DL TOTAL PROTEIN S/P/B 7.4 6.4 - 8.2 G/DL ALBUMIN S/P/B 3.5 3.4 - 5.0 G/DL AST 15 15 - 37 U/L ALT 16 16 - 60 U/L ALKALINE PHOSPHATASE S/P/B 88 50 - 136 U/L ANION GAP 6.2 5 - 15 MMOL/L BUN CREATININE RATIO 23.3 6 - 26 A/G RATIO 0.9 (L) 1.0 - 2.0 RATIO GFR ESTIMATE >90 >90 ML/MIN/1.73 M2 TROPONIN, QUANT Result Value Ref Range TROPONIN I HIGH SENSITIVITY 10 <79 ng/L URINALYSIS Result Value Ref Range Specimen Type URINE CLEAN CATCH COLOR (U) YELLOW TRANSPARENCY CLEAR SPECIFIC GRAVITY (U) 1.028 1.001 - 1.030 U PH 5.5 5.0 - 9.0 LEUKOCYTES (U) 75 (A) NEGATIVE NITRITES NEGATIVE NEGATIVE PROTEIN RANDOM (U) 100 (H) <30 MG/DL GLUCOSE (U) NORMAL NORMAL MG/DL KETONES (U) NEGATIVE NEGATIVE MG/DL UROBILINOGEN NORMAL NORMAL MG/DL BILIRUBIN (U) NEGATIVE NEGATIVE MG/DL BLOOD (U) 1+ (A) NEGATIVE CULTURE & SENSITIVITY INDICATED? SPECIMEN SETUP FOR CULTURE MUCUS RARE /LPF HYALINE CASTS RARE /LPF WBC/HPF 58 (H) <6 /HPF RBC/HPF 12 (H) <6 /HPF BUDDING YEAST MANY (A) NONE /HPF SQUAMOUS EPITHELIALS RARE /HPF DRUG SCREEN RAPID Result Value Ref Range AMPHETAMINE (U) NEGATIVE NEGATIVE BARBITURATES SCREEN (U) NEGATIVE NEGATIVE BENZODIAZEPINES SCREEN (U) NEGATIVE NEGATIVE CANNABINOIDS SCREEN (U) NEGATIVE NEGATIVE COCAINE METABOLITES (U) NEGATIVE NEGATIVE METHADONE (U) NEGATIVE NEGATIVE OPIATE SCREEN (U) NEGATIVE NEGATIVE PHENCYCLIDINE PCP (U) NEGATIVE NEGATIVE CREATININE (U) 184.0 39 - 259 MG/DL IMAGING STUDIES CT HEAD WO CON Final Result by User, [email or web address] (07/21 9412) INDICATION: Syncope, stumbled and fall, question loss of consciousness and facial trauma DOSE OPTIMIZATION: This facility uses dose optimization techniques as appropriate to perform exams, including at least one of the following techniques: 1. Automated exposure control. 2. Adjustment of the mA and/or kV according to patient size (this includes techniques or standardized protocols for targeted exams where dose is matched to the indication/reason for exam, i.e. extremities or head). 3. Use of iterative reconstructive technique. TECHNIQUE: CT head was performed without IV contrast COMPARISON: None FINDINGS: See separate facial CT dictation. There is no mass effect, shift of midline structures or evidence of acute intracranial hemorrhage. There is no focal abnormal area of attenuation within the brain parenchyma. The ventricular size and contour is appropriate for the patient's age. The visualized paranasal sinuses are aerated. Incidental note is made of soft tissue calcifications and swelling/scarring in the posterior right occiput/neck junction likely related to prior procedure or old trauma in a patient without discrete abnormality in this region on the current study. IMPRESSION: See facial CT bone dictation 1. No evidence of acute intracranial process. 2. Soft tissue changes as above Referred By: Interpreted By: Dung Quach MD, 07/21/2023 10:[address] FACIAL BONES WO CON Final Result by User, [email or web address] (07/21 3070) INDICATION: Facial trauma, possible chipped tooth DOSE OPTIMIZATION: This facility uses dose optimization techniques as appropriate to perform exams, including at least one of the following techniques: 1. Automated exposure control. 2. Adjustment of the mA and/or kV according to patient size (this includes techniques or standardized protocols for targeted exams where dose is matched to the indication/reason for exam, i.e. extremities or head). 3. Use of iterative reconstructive technique. TECHNIQUE: CT facial bones was performed without IV contrast COMPARISON: None FINDINGS: See head CT dictation. No displaced fracture of the tooth is noted. A small chip is not excluded and can be evaluated with direct visualization. There is mild left nasal septal deviation and septal spur. No air-fluid level is appreciated in the visualized paranasal sinuses. The nasal bone, orbital rim, zygomatic arch, and pterygoid plates are intact. No discrete mandibular fracture is seen. There are lymph nodes seen in the neck. The soft tissues and neck are limitedly evaluated on this noncontrast examination. Debris versus soft tissue fullness in the vallecula is not excluded The globes are intact. No retroconal fat swelling is seen There are degenerative changes in the cervical spine. IMPRESSION: 1. No mandibular fracture or discrete tooth disruption seen by CT although small superficial chip is not excluded. Referred By: Interpreted By: Dung Quach MD, 07/21/2023 10:55 PM ED Course / Medical Decision Making Medical Decision Making ED Course as of 07/22/23414Jul 22, 2023412 CT facial bones and head CT unremarkable for acute injuries. [MS] 412 EKG read as sinus rhythm Labs grossly unremarkable except for positive urinary tract infection. [MS] 413 Patient states his PCP is aware of the urine results. They are getting get a repeat urine in acouple weeks. Patient has been asymptomatic [MS] ED Course User Index [MS] Kalia Nance MD Rhythm strip ordered and interpreted: NSR, Rate 85, No ectopy Medications - No data to display Clinical Impression Syncope, unspecified syncope type (Primary) Current Discharge Medication List Disposition: Discharge Follow-Up: Herb Burden MD [address] [facility] [address] [facility] [id number] Schedule an appointment as soon as possible for a visit in 3 days KALIA NANCE MD 07/22/2023 Kalia Nance MD 07/22/23414 [facility] * Cookie Vergara RN - 07/22/2023 1:24 AM CST Bed: 17 Expected date: Expected time: Means of arrival: Comments: [place] [facility] * Kemi Landon NP - 07/21/2023 9:59 PM CST [place], [place] EMERGENCY DEPARTMENT ENCOUNTER Medical Screening Examination 07/21/23 9:59 PM Chief Complaint : Syncope HPI : Rene Lr is a 43-year-old male who presents with syncope. Patient states that he was walking from the emergency room to his motor vehicle when he stumbled and fell. Patient statesthat he had loss of consciousness. Patient states that he believes that he may have chipped a tooth. Patient states that this has happened 1 time previously. Patient had no preceding signs and symptoms such as chest pain, shortness of breath, or palpitations. Patient does report that he felt dizzy prior to syncope. Patient states that he feels that he is under a lot of stress due to mother being in the emergency room. Vital Signs: Filed Vitals: 07/21/23 2150 BP: (!) 173/85 Pulse: 95 Resp: 22 Temp: 97.5 ??F (36.4 ??C) TempSrc: Temporal SpO2: 100% Weight: (!) 172.4 kg (380 lb) Height: 1.981 m (6' 6 ) Physical exam: A brief physical exam was completed to facilitate/expedite patient care. Disheveled. No acute distress Plan: Necessary labs/imaging/medications ordered to initiate pt care. Kemi Landon NP 07/21/232200 Cosigned by Kalia Nance MD at 07/22/2023 6:30 AM [facility] * Esha Gardner RN - 07/21/2023 9:58 PM CST Pt states he was walking vehicle, began to get light headed, stumbled, and woke up on the ground. [facility] documented in this encounter Plan of Treatment Not on file documented as of this encounter Procedures Procedure Name Priority Date/Time Associated Diagnosis Comments DRUG SCREEN RAPID STAT 07/21/2023 10: 55 PM [facility] HC URINALYSIS AUTO W/O MICRO STAT 07/21/2023 10:55 PM [facility] URINE BACTERIA CULTURE Routine 10:55 PM [facility] COMPREHENSIVE METABOLIC PANEL STAT 07/21/2023 10:55 PM [facility] CBC W/DIFF AUTOMATED STAT 07/21/2023 10:55 PM [facility] TROPONIN, QUANT STAT 07/21/2023 10:[address] [address] HEAD WO CON STAT 07/21/2023 10:[address] [address] FACIAL BONES WO CON STAT 10:26 PM [facility] ECG 12-LEAD Routine 07/21/2023 10:15 PM [facility] documented in this encounter Results * DRUG SCREEN RAPID (07/21/2023 10:55 PM [facility]) AMPHETAMINE (U) NEGATIVE NEGATIVE 1:31 AM [facility] BARBITURATES SCREEN (U) NEGATIVE NEGATIVE 07/22/2023 1:31 AM [facility] BENZODIAZEPINES SCREEN (U) NEGATIVE NEGATIVE 07/22/2023 1:31 AM [facility] CANNABINOIDS SCREEN (U) NEGATIVE NEGATIVE 07/22/2023 1:31 AM [facility] COCAINE METABOLITES (U) NEGATIVE NEGATIVE 07/22/2023 1:31 AM [facility] METHADONE (U) NEGATIVE NEGATIVE 07/22/2023 1:31 AM [facility] OPIATE SCREEN (U) NEGATIVE NEGATIVE 024 1:31 AM [facility] PHENCYCLIDINE PCP (U) NEGATIVE NEGATIVE 07/22/2023 1:31 AM [facility] Comment: NOTE: RESULTS OF THIS DRUG SCREEN SHOULD BE USED FOR MEDICAL PURPOSES ONLY AND NOT FOR LEGAL OR EMPLOYMENT PURPOSES. POSITIVE RESULTS ARE NOT CONFIRMED. MEDICATIONS CONTAINING EPHEDRINE MAY CAUSE FALSE POSITIVE AMPHETAMINE CALL , LAB, TO REQUEST CONFIRMATION TESTING. IF CREATININE IS <40 mg/dL. ??RECOLLECTION IS SUGGESTED. AMPHETAMINE- ?500 NG/ML BARBITURATE- ?200 NG/ML BENZODIAZEPINES- ??200 NG/ML THC- ? 50 NG/ML COCAINE- ?150 NG/ML METHADONE- ?300 NG/ML OPIATE- ? 300 MG/ML PCP- ? 25 NG/ML CREATININE (U) 184.0 39 - 259 MG/DL 07/22/2023 1:31 AM [facility] URINE SPECIMEN / Unknown 07/21/2023 10:55 PM [facility] Kalia Nance MD URINE ORDERABLES Shilpi montano Result [facility] [address] [place] [address], * CULTURE URINE (07/21/2023 10:55 PM [facility]) SPEC DESCRIPTION URINE, UNSPECIFIED 07/21/2023 11:43 PM [facility] SPECIAL REQUESTS NO SPECIAL REQUEST 07/21/2023 11:43 PM [facility] CULTURE RESULT NO GROWTH 2 DAYS 07/24/2023 7:46 AM [facility] URINE SPECIMEN / Unknown 07/21/2023 10:55 PM [facility] 07/21/2023 11:43 PM [facility] us Kemi Landon NP MICROBIOLOGY - GENERAL ORDERAB LES Final Result [facility] [address] [place] [address], * (ABNORMAL) URINALYSIS (07/21/2023 10:55 PM [facility]) SPECIMEN TYPE URINE CLEAN CATCH 07/21/2023 10:54 PM [facility] COLOR (U) YELLOW 07/21/2023 11:40 PM [facility] TRANSPARENCY CLEAR 07/21/2023 11:40 PM [facility] SPECIFIC GRAVITY (U) 1.028 1.001 - 1.030 07/21/2023 11:40 PM [facility] U PH 5.5 5.0 - 9.0 07/21/2023 11:40 PM [facility] LEUKOCYTES (U) 75(A) NEGATIVE 07/21/2023 11:40 PM [facility] NITRITES NEGATIVE NEGATIVE 07/21/2023 11:40 PM [facility] PROTEIN RANDOM (U) 100(H) <30 MG/DL 07/21/2023 11:40 PM [facility] GLUCOSE (U) NORMAL NORMAL MG/DL 07/21/2023 11:40 PM [facility] KETONES MG/DL (U) NEGATIVE NEGATIVE MG/DL 07/21/2023 11:40 PM [facility] UROBILINOGEN NORMAL NORMAL MG/DL 07/21/2023 11:40 PM [facility] BILIRUBIN (U) NEGATIVE NEGATIVE MG/DL 07/21/2023 11:40 PM [facility] BLOOD (U) 1+(A) NEGATIVE 07/21/2023 11:40 PM [facility] CULTURE & SENSITIVITY INDICATED? SPECIMEN SETUP FOR CULTURE 07/21/2023 11:40 PM [facility] MUCUS RARE /LPF 07/21/2023 11:40 PM [facility] HYALINE CASTS RARE /LPF 07/21/2023 11:40 PM [facility] WBC/HPF 58(H) <6 /HPF 07/21/2023 11:40 PM [facility] RBC/HPF 12(H) <6 /HPF 07/21/2023 11:40 PM [facility] BUDDING YEAST MANY(A) NONE /HPF 07/21/2023 11:40 PM [facility] SQUAMOUS EPITHELIALS RARE /HPF 07/21/2023 11:40 PM [facility] URINE SPECIMEN OBTAINED BY CLEAN CATCH PROCEDURE / Unknown 07/21/2023 10:55 PM [facility] Kemi Landon STONECUTTER URINE ORDERABLES Final Result [facility] [address] [place] [address], [place] [phone] * TROPONIN, QUANT (07/21/2023 10:55 PM [facility]) TROPONIN I HIGH SENSITIVITY 10 <79 ng/L 07/21/2023 11:49 PM [facility] Comment: HIGH DOSES OF BIOTIN, TROPONIN-SPECIFIC AUTOANTIBODIES, AND ANTIBODY THERAPY CONTAINING HAMA MAY INTERFERE WITH THIS TEST RESULT. CORRELATION TO CLINICAL HISTORY AND PRESENTATION RECOMMENDED. 07/21/2023 10:5 5 PM [facility] us Kemi Landon NP LABORATORY Final Result [facility] [address] [place] [address], * (ABNORMAL) COMPREHENSIVE METABOLIC PANEL (07/21/2023 10:55 PM NUTRITION INTERNSHIP) Pathologist [facility] GLUCOSE 166(H) 70 - 99 MG/DL 07/21/2023 11:49 PM [employer] [facility] BUN 20(H) 7 - 18 MG/DL 07/21/2023 11:49 PM [employer] [facility] CREATININE S/P/B 0.86 0.7 - 1.3 MG/DL 07/21/2023 11:49 PM [employer] [facility] SODIUM S/P/B 140 136 - 145 MMOL/L 07/21/2023 11:49 PM [employer] [facility] POTASSIUM S/P/B 3.7 3.5 - 5.1 MMOL/L 07/21/2023 11:49 PM [employer] [facility] CHLORIDE S/P/B 107 100 - 108 MMOL/L 07/21/2023 11:49 PM [employer] [facility] CO2 26.8 21 - 32 MMOL/L 07/21/2023 11:49 PM [employer] [facility] CALCIUM S/P/B 8.8 8.5 - 10.1 MG/DL 07/21/2023 11:49 PM [employer] [facility] BILIRUBIN TOTAL S/P/B 0.4 0.2 - 1.2 MG/DL 07/21/2023 11:49 PM [employer] [facility] Comment: THIS ASSAY IS NOT RECOMMENDED FOR PATIENTS UNDERGOING TREATMENT WITH ELTROMBOPAG DUE TO THE POTENTIAL FOR FALSELY ELEVATED RESULTS. TOTAL PROTEIN S/P/B 7.4 6.4 - 8.2 G/DL 07/21/2023 11:49 PM [facility] ALBUMIN S/P/B 3.5 3.4 - 5.0 G/DL 07/21/2023 11:49 PM [facility] AST 15 15 - 37 U/L 07/21/2023 11:49 PM [facility] ALT 16 16 - 60 U/L 07/21/2023 11:49 PM [facility] ALKALINE PHOSPHATASE S/P/B 88 50 - 136 U/L 07/21/2023 11:49 PM [facility] ANION GAP 6.2 5 - 15 MMOL/L 07/21/2023 11:49 PM [facility] BUN CREATININE RATIO 23.3 6 - 26 07/21/2023 11:49 PM [facility] A/G RATIO 0.9(L) 1.0 - 2.0 RATIO 07/21/2023 11:49 PM [facility] GFR ESTIMATE >90 >90 ML/MIN/1.7 3 M2 07/21/2023 11:49 PM [facility] Comment: NOTE: eGFR is not calculated for patients <18 years of age. This is an estimated GFR calculation using the new CKD EPI creatinine equation without race and so does not require a correction factor for race. This estimated GFR should not be used for calculating drug doses. 07/21/2023 10:5 5 PM [employer] INTER[employer] us Kemi Landon NP LABORATORY Final Result [facility] [address] [place] [address], * (ABNORMAL) CBC W/DIFF AUTOMATED (07/21/2023 10:55 PM NUTRITION INTERNSH[employer]) [facility] WBC 8.5 4.5 - 11.0 x10'3/uL 07/21/2023 11:27 PM [facility] RBC 4.36(L) 4.70 - 6.10 x10'6/uL 07/21/2023 11:27 PM [facility] HGB 11.6(L) 14.0 - 18.0 G/DL 07/21/2023 11:27 PM [facility] HCT 36.0(L) 43.0 - 54.0 % 07/21/2023 11:27 PM [facility] MCV 82.6 80.0 - 94.0 FL 07/21/2023 11:27 PM [facility] MCH 26.6(L) 27.0 - 31.0 PG 07/21/2023 11:27 PM [facility] MCHC 32.2 32.0 - 36.0 G/DL 07/21/2023 11:27 PM [facility] RDW 15.9(H) 11.5 - 14.5 % 07/21/2023 11:27 PM [facility] PLT 205 130 - 400 x10'3/uL 07/21/2023 11:27 PM [facility] MPV 9.9 9.3 - 12.2 FL 07/21/2023 11:27 PM [facility] DIFFERENTIAL TYPE AUTOMATED DIFFERENTIAL 07/21/2023 11:27 PM [facility] NEUTROPHILS % 75.1 % 07/21/2023 11:27 PM [facility] LYMPHOCYTES % 17.7 % 07/21/2023 11:27 PM [facility] MONOCYTES % 5.4 % 07/21/2023 11:27 PM [employer] [facility] EOSINOPHILS 0.9 % 07/21/2023 11:27 PM [employer] [facility] BASOPHILS 0.5 % 07/21/2023 11:27 PM [employer] [facility] IMMATURE GRANS % 0.4 % 07/21/19 11:27 PM [employer] [facility] ABS. NEUTROPHILS TOTAL 6.35 1.80 - 7.70 x10'3/uL 07/21/2023 11:27 PM [employer] [facility] ABS. LYMPHOCYTES 1.50 1.00 - 4.80 x10'3/uL 07/21/2023 11:27 PM [employer] [facility] ABS. MONOCYTES 0.46 0.30 - 0.82 x10'3/uL 07/21/2023 11:27 PM [employer] [facility] ABS. EOSINOPHILS 0.08 0.04 - 0.54 x10'3/uL 07/21/2023 11:27 PM [employer] [facility] ABS. BASOPHILS 0.04 0.01 - 0.08 x10'3/uL 07/21/2023 11:27 PM [employer] [facility] ABS. IMMATURE GRANULOCYTES 0.03 0.00 - 0.49 x10'3/uL 07/21/2023 11:27 PM [facility] 07/21/2023 10:5 5 PM [employer] INTER[employer] us Kemi Landon NP LABORATORY Final Result [facility] [address] [place] [address], [place] [phone] * CT FACIAL BONES WO CON (07/21/2023 10:26 PM [employer]) Anatomical Region Laterality Modality Facial Computed Tomogra phy 07/21/2023 10:5 5 PM [employer] Impressions 07/21/2023 10:59 PM [employer] IMPRESSION: 1. ??No mandibular fracture or discrete tooth disruption seen by CT although small superficial chip is not excluded. Referred By: ?? Interpreted By: Dung Quach MD, 07/21/2023 10:55 PM Narrative 07/21/2023 10:59 PM [employer] INDICATION: Facial trauma, possible chipped tooth DOSE OPTIMIZATION: This facility uses dose optimization techniques as appropriate to perform exams, including at least one of the following techniques: 1. ??Automated exposure control. 2. ??Adjustment of the mA and/or kV according to patient size (this includes techniques or standardized protocols for targeted exams where dose is matched to the indication/reason for exam, i.e. extremities or head). 3. Use of iterative reconstructive technique. TECHNIQUE: CT facial bones was performed without IV contrast COMPARISON: None FINDINGS: See head CT dictation. No displaced fracture of the tooth is noted. ??A small chip is not excluded and can be evaluated with direct visualization. ??There is mild left nasal septal deviation and septal spur. ??No air-fluid level is appreciated in the visualized paranasal sinuses. ??The nasal bone, orbital rim, zygomatic arch, and pterygoid plates are intact. ??No discrete mandibular fracture is seen. There are lymph nodes seen in the neck. ??The soft tissues and neck are limitedly evaluated on this noncontrast examination. ??Debris versus soft tissue fullness in the vallecula is not excluded The globes are intact. ??No retroconal fat swelling is seen There are degenerative changes in the cervical spine. Procedure Note Jonh Quach MD - 07/21/2023 INDICATION: Facial trauma, possible chipped tooth DOSE OPTIMIZATION: This facility uses dose optimization techniques asappropriate to perform exams, including at least one of the followingtechniques: 1. Automated exposure control. 2. Adjustment of the mA and/or kV according to patient size (thisincludes techniques or standardized protocols for targeted exams wheredose is matched to the indication/reason for exam, i.e. extremities orhead). 3. Use of iterative reconstructive technique. TECHNIQUE: CT facial bones was performed without IV contrast COMPARISON: None FINDINGS: See head CT dictation. No displaced fracture of the tooth is noted. A small chip is not excludedand can be evaluated with direct visualization. There is mild left nasalseptal deviation and septal spur. No air-fluid level is appreciated inthe visualized paranasal sinuses. The nasal bone, orbital rim, zygomaticarch, and pterygoid plates are intact. No discrete mandibular fracture isseen. There are lymph nodes seen in the neck. The soft tissues and neck arelimitedly evaluated on this noncontrast examination. Debris versus softtissue fullness in the vallecula is not excluded The globes are intact. No retroconal fat swelling is seen There are degenerative changes in the cervical spine. IMPRESSION: 1. No mandibular fracture or discrete tooth disruption seen by CTalthough small superficial chip is not excluded. Referred By: Interpreted By: Dung Quach MD, 07/21/2023 10:55 PM Kemi Landon STONECUTTER CT Final Result * CT HEAD WO CON (07/21/2023 10:26 PM [employer]NSHIP) Anatomical Region Laterality Modality Head Computed Tomogra phy 07/21/2023 10:4 6 PM [employer] Impressions 07/21/2023 10:55 PM [employer]IP IMPRESSION: See facial CT bone dictation 1. ??No evidence of acute intracranial process. 2. ??Soft tissue changes as above Referred By: ?? Interpreted By: Dung Quach MD, 07/21/2023 10:46 PM Narrative 07/21/2023 10:55 PM [employer] INDICATION: Syncope, stumbled and fall, question loss of consciousness and facial trauma DOSE OPTIMIZATION: This facility uses dose optimization techniques as appropriate to perform exams, including at least one of the following techniques: 1. ??Automated exposure control. 2. ??Adjustment of the mA and/or kV according to patient size (this includes techniques or standardized protocols for targeted exams where dose is matched to the indication/reason for exam, i.e. extremities or head). 3. Use of iterative reconstructive technique. TECHNIQUE: CT head was performed without IV contrast COMPARISON: None FINDINGS: See separate facial CT dictation. ??There is no mass effect, shift of midline structures or evidence of acute intracranial hemorrhage. There is no focal abnormal area of attenuation within the brain parenchyma. The ventricular size and contour is appropriate for the patient's age. The visualized paranasal sinuses are aerated. Incidental note is made of soft tissue calcifications and swelling/scarring in the posterior right occiput/neck junction likely related to prior procedure or old trauma in a patient without discrete abnormality in this region on the current study. Procedure Note Jonh Quach MD - 07/21/2023 INDICATION: Syncope, stumbled and fall, question loss of consciousness andfacial trauma DOSE OPTIMIZATION: This facility uses dose optimization techniques asappropriate to perform exams, including at least one of the followingtechniques: 1. Automated exposure control. 2. Adjustment of the mA and/or kV according to patient size (thisincludes techniques or standardized protocols for targeted exams wheredose is matched to the indication/reason for exam, i.e. extremities orhead). 3. Use of iterative reconstructive technique. TECHNIQUE: CT head was performed without IV contrast COMPARISON: None FINDINGS: See separate facial CT dictation. There is no mass effect,shift of midline structures or evidence of acute intracranial hemorrhage.There is no focal abnormal area of attenuation within the brainparenchyma. The ventricular size and contour is appropriate for thepatient's age. The visualized paranasal sinuses are aerated. Incidental note is made of soft tissue calcifications andswelling/scarring in the posterior right occiput/neck junction likelyrelated to prior procedure or old trauma in a patient without discreteabnormality in this region on the current study. IMPRESSION: See facial CT bone dictation 1. No evidence of acute intracranial process. 2. Soft tissue changes as above Referred By: Interpreted By: Dung Quach MD, 07/21/2023 10:46 PM Kemi Landon STONECUTTER CT Final Result * ECG 12 lead (07/21/2023 10:15 PM [employer]NSH[employer]) 07/21/2023 10:1 5 PM [employer] INTER[employer]IP Narrative [facility] - 07/21/2023 10:26 PM NUTRITION INTERNSHIP ?[facility] ? [address] [place] ? Test Date: ?2023-07-21 Pat Name: ? RENE EDMAR ?Department: ?? 41 ? Room: ? TG3TG3 Gender: ? Male ? 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 DJC : ?1980 ? Requested By: KEMI LANDON Order Number: [id number] ? Reading MD: ?? Leonardo Hickman ? Measurements Intervals ?[place] ? Rate: ? 95 ? P: ?41 MD: ? 188 ?QRS: ?39 QRSD: ? 104 ?T: ?41 QT: ? 334 ? QTc: ?421 ? Interpretive Statements SINUS RHYTHM LOW QRS VOLTAGE IN PRECORDIAL LEADS ??[QRS DEFLECTION < 1.0 mV IN CHEST LEADS] INCOMPLETE RIGHT BUNDLE BRANCH BLOCK ??[90+ ms QRS DURATION, TERMINAL R IN V1/V2, 40+ ms S IN I/aVL/V4/V5/V6] No previous ECG available for comparison [employer] Procedure Note Leonardo Hickman MD - 07/21/[address] 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 : 1980 Requested By: KEMI LANDON Order Number: [id number] Reading MD: Leonardo Hickman Measurements Intervals [place] Rate: 95 P: 41 MD: 188 QRS: 39 QRSD: 104 T: 41 QT: 334 QTc: 421 Interpretive Statements SINUS RHYTHM LOW QRS VOLTAGE IN PRECORDIAL LEADS [QRS DEFLECTION < 1.0 mV IN CHESTLEADS] INCOMPLETE RIGHT BUNDLE BRANCH BLOCK [90+ ms QRS DURATION, TERMINAL RIN V1/V2, 40+ ms S IN I/aVL/V4/V5/V6] No previous ECG available for comparison [employer] us Kemi Landon STONECUTTER ECG ORDERABLES Final Result [facility] documented in this encounter Visit Diagnoses Diagnosis Syncope, unspecified syncope type- Primary documented in this encounter Care Teams Environmental Studies Program Director Relationship Specialty Start Date End Date Herb Burden MD [address] [facility] [address] [place] [phone] PCP - General FAMILY PRACTICE 02/26/23 documented as of this encounter
--- OUTSIDE RECORDS SUMMARY | 2024-06-08 00:03 | XMS_ITS | Encounter Summary ---
Author Organization [facility] Address [address] [place] [address]. [place], [place] [address] [place] [address] Care Team Providers Care Heart Surgeon Name Role Phone Herb Burden MD Primary Care Provider + Reason for Referral * Surgical (Routine) - Closed Specialty Diagnoses / Procedures Referred By Contac t Referred To Contact SURGERY Diagnoses Anemia, unspecified type Procedures OFFICE/OUTPATIENT NEW LOW MDM 30-44 MINUTES OFFICE/OUTPT VISIT,NEW,LEVL IV OFFICE/OUTPT VISIT,NEW,LEVL V OFFICE/OUTPT VISIT,EST,LEVL III OFFICE/OUTPT VISIT,EST,LEVL IV OFFICE/OUTPT VISIT,EST,LEVL V Herb Burden MD [address] [facility] [address] [place] [address] Phone: tel: fax: [facility] General Surgery - [place] [address] [facility], [address] [place] [address] Phone: tel: fax: Referral ID Status Reason Start Date Expiration Date Visits Re quested Visits Authorized [id number] Closed 04/28/2023 05/28/2024 1 1 Scheduling Instructions Needs colonoscopy R BOSS Reason for Visit * Reason Onset Date Comments Results 04/27/2023 Encounter Details Date Type Department Care Team (Late st Contact Info) Description 04/27/[address] [facility] [address] [place] [address] Herb Burden MD [address] [facility] [address] [place] [address] Results Social History Tobacco Use Types [...] Progress Notes * Cyn Salmeron RN - 04/28/2023 12:16 PM CST Pt voices understanding and denies any questions at this time. R BOSS * Cyn Salmeron RN - 04/27/2023 2:49 PM CST ----- Message from Herb Burden MD sent at 04/27/2023 2:19 PM MOTOR BOSS ----- In addition to adding potassium, increase Trulicity to next highest dose. Also recommend colonoscopy as remains anemic. 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
--- OUTSIDE RECORDS SUMMARY | 2024-06-08 00:03 | XMS_ITS | Encounter Summary ---
Author Organization [facility] Address [facility]. [place], [place] [address] [place] [address] Care Team Providers Care Wastewater Operator Name Role Phone Herb Burden MD Primary Care Provider + Encounter Details Date Type Department Care Team (Latest Contact Info) Description 04/27/2023 7:40 AM BUCKLE WIRE INSERTER - 04/27/2023 11:59 PM [facility] Hospital Encounter [facility] [address] [place] [address] Herb Burden MD [address] [place] [address] [place] [address] Discharge Disposition: Home or Self [...] each 3 04/15/2023 Lancets (ONETOUCH DELICA PLUS [id number]) MiscIndications: Type 1 diabetes mellitus with foot ulcer ([facility] HHS/HCC) 1 each by Does not apply [...] Type 1 diabetes mellitus with foot ulcer ([facility]/HCC H[facility]/HCC) Use with insulin pens 100 each [...] Comments HEMOGLOBIN, GLYCOSYLATED Routine 04/27/2023 8:07 AM BUCKLE WIRE INSERTER Type 1 diabetes mellitus with foot ulcer ([facility]) COMPREHENSIVE METABOLIC PANEL Routine 04/27/2023 8:07 AM BU[employer]LE WIRE INSERTER Primary hypertension CBC W/DIFF AUTOMATED Routine 04/27/2023 8:07 AM BU[employer] WIRE INSERTER Primary hypertension documented in this encounter Results * (ABNORMAL) CBC W/DIFF AUTOMATED (04/27/2023 8:07 AM BUCKLE WIRE INSERTER) WBC 7.91 4.50 - 11.00 x10'3/uL 04/27/2023 8:28 AM [facility] RBC 3.62(L) 4.70 - 6.10 x10'6/uL 04/27/2023 8:28 AM [facility] HGB 9.8(L) 14.0 - 18.0 G/DL 04/27/2023 8:28 AM [facility] HCT 31.2(L) 43.0 - 54.0 % 04/27/2023 8:28 AM [facility] MCV 86.2 80.0 - 94.0 FL 04/27/2023 8:28 AM [facility] MCH 27.1 27.0 - 31.0 PG 04/27/2023 8:28 AM [facility] MCHC 31.4(L) 32.0 - 36.0 G/DL 04/27/2023 8:28 AM [facility] RDW 13.8 11.5 - 14.5 % 04/27/2023 8:28 AM [facility] PLT 209 130 - 400 x10'3/uL 04/27/2023 8:28 AM [facility] MPV 9.8 9.3 - 12.2 FL 04/27/2023 8:28 AM [facility] CBC COMMENT AUTOMATED RBC MORPHOLOGY AND PLATELET EVALUATION NORMAL 04/27/2023 8:28 AM [facility] NEUTROPHILS % 64.3 % 04/27/2023 8:28 AM [facility] LYMPHOCYTES % 25.3 % 04/27/2023 8:28 AM [facility] MONOCYTES % 6.8 % 04/27/2023 8:28 AM [facility] EOSINOPHILS 2.9 % 04/27/2023 8:28 AM [facility] BASOPHILS 0.4 % 04/27/2023 8:28 AM [facility] IMMATURE GRANS % 0.3 % 04/27/20 8:28 AM [facility] NRBC 0.0 % 04/27/2023 8:28 AM [facility] ABS. NEUTROPHILS TOTAL 5.09 1.80 - 7.70 x10'3/uL 04/27/2023 8:28 AM [facility] ABS. LYMPHOCYTES 2.00 1.00 - 4.80 x10'3/uL 04/27/2023 8:28 AM [facility] ABS. MONOCYTES 0.54 0.30 - 0.82 x10'3/uL 04/27/2023 8:28 AM [facility] ABS. EOSINOPHILS 0.23 0.04 - 0.54 x10'3/uL 04/27/2023 8:28 AM [facility] ABS. BASOPHILS 0.03 0.01 - 0.08 x10'3/uL 04/27/2023 8:28 AM [facility] ABS. IMMATURE GRANULOCYTES 0.02 0.00 - 0.49 x10'3/uL 04/27/2023 8:28 AM [facility] ABS. NUCLEATED RBC'S 0.00 0.00 - 0.01 x10'3/uL 04/27/2023 8:28 AM [facility] 04/27/2023 8:07 AM [facility] Herb Burden MD LABORATORY Final Re sult [facility] [address] [address], [place] [phone] * (ABNORMAL) COMPREHENSIVE METABOLIC PANEL (04/27/2023 8:07 AM BUCKLE WIRE INSERTER) [facility] GLUCOSE 126(H) 70 - 99 MG/DL 04/27/2023 9:02 AM [facility] BUN 18 7 - 18 MG/DL 04/27/2023 9:02 AM [facility] CREATININE S/P/B 0.90 0.7 - 1.3 MG/DL 04/27/2023 9:02 AM [facility] SODIUM S/P/B 140 136 - 145 MMOL/L 04/27/2023 9:02 AM [facility] POTASSIUM S/P/B 3.0(LL) 3.5 - 5.1 MMOL/L 04/27/2023 9:02 AM [facility] Comment: Critical Result(s) Called at: 09:01:05 on 04/27/2023 by: MECHE NELSON to and read back by:ENRRIQUE CHLORIDE S/P/B 104 100 - 108 MMOL/L 04/27/2023 9:02 AM [facility] CO2 27.2 21 - 32 MMOL/L 04/27/2023 9:02 AM [facility] CALCIUM S/P/B 8.5 8.5 - 10.1 MG/DL 04/27/2023 9:02 AM [facility] BILIRUBIN TOTAL S/P/B 0.3 0.2 - 1.2 MG/DL 04/27/2023 9:02 AM [facility] Comment: THIS ASSAY IS NOT RECOMMENDED FOR PATIENTS UNDERGOING TREATMENT WITH ELTROMBOPAG DUE TO THE POTENTIAL FOR FALSELY ELEVATED RESULTS. TOTAL PROTEIN S/P/B 6.7 6.4 - 8.2 G/DL 04/27/2023 9:02 AM [facility] ALBUMIN S/P/B 2.7(L) 3.4 - 5.0 G/DL 04/27/2023 9:02 AM [facility] AST 13(L) 15 - 37 U/L 04/27/2023 9:02 AM [facility] ALT 12(L) 16 - 60 U/L 04/27/2023 9:02 AM [facility] ALKALINE PHOSPHATASE S/P/B 82 50 - 136 U/L 04/27/2023 9:02 AM [facility] ANION GAP 8.8 5 - 15 MMOL/L 04/27/2023 9:02 AM [facility] BUN CREATININE RATIO 20.0 6 - 26 04/27/2023 9:02 AM [facility] A/G RATIO 0.7(L) 1.0 - 2.0 RATIO 04/27/2023 9:02 AM [facility] GFR ESTIMATE >90 >90 ML/MIN/1.7 3 M2 04/27/2023 9:02 AM [facility] Comment: NOTE: eGFR is not calculated for patients <18 years of age. This is an estimated GFR calculation using the new CKD EPI creatinine equation without race and so does not require a correction factor for race. This estimated GFR should not be used for calculating drug doses. 04/27/2023 8:07 AM BUCKLE WIRE INSERTER Herb Burden MD LABORATORY Final Re sult Performing Organization Address City/[facility]/ZIP Co de Phone Number [facility] [address] [address], [place] [phone] * (ABNORMAL) HEMOGLOBIN, GLYCOSYLATED (04/27/2023 8:07 AM BUCKLE WIRE INSERTER) HGB A1C 7.7(H) <5.7 % 04/27/2023 2:01 PM BUCKLE WIRE INSERTER [facility] Comment: ADA GUIDELINES 2010 5.7 TO 6.4% INCREASED RISK OF DIABETES > OR = 6.5% CONSISTENT WITH DIABETES TESTING PERFORMED AT [address] ??[id number] ESTIMATED AVG GLUCOSE 174 mg/dL 04/27/2023 2:01 PM [facility] 04/27/2023 8:07 AM BUCKLE WIRE INSERTER Herb Burden MD LABORATORY Final Re sult [facility] [id number] [place] [address], [place] [address], documented in this encounter Visit Diagnoses Diagnosis Type 1 diabetes mellitus with foot ulcer ([facility]/H[facility]/HCC) 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
--- OUTSIDE RECORDS SUMMARY | 2024-06-08 00:03 | XMS_ITS | Encounter Summary ---
Author Organization [facility] Address [address] [place] [address]. [place], [place] [address] [place] [address] Care Team Providers Care Metal Finish Inspector Name Role Phone Herb Burden MD Primary Care Provider + Encounter Details Date Type Department Care Team (Latest Contact Info) Description 04/01/2023 Travel Social History Tobacco Use Types Packs/Day [...] on filedocumented in this encounter Care Teams Metal Finish Inspector Relationship Specialty Start Date End Date Herb Burden MD [address] [facility] 112 [place] [address] PCP - General FAMILY PRACTICE 02/26/23 documented as of this encounter
--- OUTSIDE RECORDS SUMMARY | 2024-06-08 00:03 | XMS_ITS | Encounter Summary ---
Author Organization [facility] Address [address] [place] [address]. [place], [place] [address] [place] [address] Care Team Providers Care Living Manager Name Role Phone Herb Burden MD Primary Care Provider + Encounter Details Date Type Department Care Team (Latest Contact Info) Description 04/05/2023 Scan [facility] Scanned, Doc [...] on filedocumented in this encounter Care Teams Living Manager Relationship Specialty Start Date End Date Herb Burden MD [address] [facility] 112 [place] [address] PCP - General FAMILY PRACTICE 02/26/23 documented as of this encounter
--- OUTSIDE RECORDS SUMMARY | 2024-06-08 00:03 | XMS_ITS | Encounter Summary ---
Author Organization [facility] Address [address] [place] [address]. [place], [place] [address] [place] [address] Care Team Providers Care District Wire Chief Name Role Phone Herb Burden MD Primary Care Provider + Reason for Visit * Reason Onset Date Comments Medication Request 04/16/2023 Encounter Details Date Type Department Care Team (Late st Contact Info) Description 04/16/2023 Telephone [facility] [address] [place] [address] Herb Burden MD [address] [facility] 112 [place] [address] Medication Request Social History Tobacco [...] as of this encounter Progress Notes * Mali Choe - 04/16/2023 12:57 PM CST Monse at pharmacy is looking for a refill for True Plus Pen needles. Please advise. 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
--- OUTSIDE RECORDS SUMMARY | 2024-06-08 00:04 | XMS_ITS | Data Portability ---
Author Organization [facility], Main Office Address [address] [place] [address] Assessment Encounter Date Assessment Date Assessment LastModified by Organization Details LastModified Time 03/02/2024 03/02/2024 avulsed Lt great toenail (no phenol, nail shall grow back) [email or web address] Not available 03/03/2024 13:59:12 Plan of Treatment Reminders Order Date Submit Date Provider Last Modified By Organization Details Last Modified Time Details Appointments Any 15 025 07:30AM Jaron Ballard MD Not available Not available Not available Lab None record ed. Referral None record ed. Procedures None record ed. Surgeries None record ed. Imaging None record ed. Medication Orders None record ed. Patient TargetsNo targets recorded. Patient Instructions Encounter Date Encounter Id Patient Instructions Last Modified By Organization Details Last Modified Time 04/25/2024 [id number] Pt is instructed to remain OWB as much as possible for pressure relief and to abet healing of heel ulcer. [email or web address] Not available 04/26/2024 08:56:05 Reason for Referral None Reported. 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 621435456 Active 2023 MARKEL Giraldo null, [facility] 4 11:33:25 Obstructive sleep apnea syndrome 80000848 Active 2023 Jaron Ballard MD [address], [place], [address] , [facility] 4 08:45:02 Periodic limb movement disorder 726654913 Active 2023 Jaron Ballard MD [address], [place], [address], [facility] [employer] [facility] [employer] [facility] 4 08:45:23 Anemia 022546392 Active 2023 Jaron Ballard MD [address], [place], [address], [facility] [employer] [facility] 4 08:42:05 Diabetic peripheral neuropathy 869240777 Active 2023 MARKEL Giraldo, [facility] [employer] [facility] 4 11:20:54 Paronychia of toe of left foot 2127315037215 9100 Active 2023 MARKEL Giraldo, [facility] [employer] [facility] 4 13:27:48 Ingrowing nail 933818675 Active 2023 Bro Clinton DPM [address], [place], [address], [facility] [employer] [facility] [employer] [facility] 4 11:16:49 Ulcer of foot 18561284 Active 2023 Bro Clinton DPM [address], [place], [address], [employer] [facility] [employer] [facility] 4 13:59:32 Notes:Medical History: Rhini tis Bruxism Delayed sleep phase syndrome Obesity with severe OSAHS, AHI = 30, 06/25/23, on CPAP c/o IVRC Mild TR Mild WI Mild RVE Hypertension EF 60% Hyperlipidemia T2DM with neuropathy ALDO BPH Anemia Vit D deficiency Procedure History: T&A 1986 Scrotal abscess I& D 2022 Colonoscopy 2023 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 Procedures Surgical History Date Name Laterality Status Provider Name and Address Organization Details Recorded Time 4 Ulcer Care completed Bro Clinton DPM [address], [place], [address], [facility] [employer] [facility] 04/26/2024 08:55:09 4 Callus Debridement 2-4 completed Bro Clinton DPM [address], [place], [address], [facility] [employer] [facility] 03/28/2024 08:43:17 4 Ulcer Care completed Bro Clinton DPM [address], [place], [address], [facility] [employer] [facility] [employer] [facility] 03/28/2024 08:43:47 4 Ulcer Care completed Bro Clinton DPM [address], [place], [address], [facility] [employer] [facility] [employer] [facility] 03/13/2024 14:19:15 4 Ulcer Care completed Bro Clinton DPM [address], [place], [address], [facility] [employer] [facility] 03/03/2024 13:57:13 4 Ulcer Care completed Bro Clinton DPM [address], [place], [address], [employer] [facility] [employer] [facility] 02/26/2024 12:10:34 4 Callus Debridement 2-4 completed Bro Clinton DPM [address], [place], [address], [employer] [facility] [employer] [facility] 02/22/2024 08:45:49 4 Ulcer Care completed Bro Clinton DPM [address], [place], [address], [employer] [facility] 02/22/2024 08:45:43 4 Excision of ingrown toe nail left completed Bro Clinton DPM [address], [place], [address], [facility] [employer] [facility] 02/12/2024 11:16:39 4 Nail Debridement completed Bro Clinton DPM [address], [place], [address], [facility] 11/17/2023 11:47:55 4 Callus Debridement 2-4 completed Bro Clinton DPM [address] [facility] [place] [address], [place], [address], [facility] [employer] [facility] 11/17/2023 11:48:02 4 Nail Debridement completed Bro Clinton DPM [address] [facility] [address], [place], [address], [facility] [employer] [facility] 09/15/2023 12:05:09 4 Total Nail Avulsion with Chemical Matrixectomy-Ri ght completed Bro Clinton DPM [address] [facility] [place] [address], [place], [address], [facility] [employer] [facility] 06/16/2023 13:02:06 Imaging Results None recorded. Procedure Notes None recorded. Medical Equipment None Reported. Allergies No known drug allergies Medications Name Sig Start Date Stop Date Status Note LastModified by Organization Details LastModified Time losartan 50 mg tablet TAKE ONE TABLET BY MOUTH EVERY DAY active Not Available Not Available No t Available metformin 500 mg tablet TAKE ONE TABLET (500MG) BY MOUTH TWICE DAILY WITH MEALS active Not Available Not Available No t Available bupropion HCl SR 150 mg tablet,12 hr sustained-r elease TAKE ONE TABLET BY MOUTH TWICE DAILY active Not Available Not Available No t Available doxycycline hyclate 100 mg capsule 10/20 completed Not Available Not Available Not Available atorvastati n 20 mg tablet TAKE ONE TABLET BY MOUTH EVERY DAY active Not Available Not Available No t Available loperamide 2 mg capsule Take 1 capsule by mouth 4 times per day as needed 11/15 completed Not Available Not Available Not Available fluconazole 200 mg tablet TAKE 2 TABLETS IMMEDIATL Y, THEN TAKE 1 TABLET ONCE PER WEEK. active Not Available Not Available No t Available famotidine 40 mg tablet TAKE ONE TABLET BY MOUTH AT BEDTIME active Not Available Not Available No t Available amlodipine 5 mg tablet TAKE ONE TABLET BY MOUTH EVERY DAY active Not Available Not Available No t Available tramadol 50 mg tablet active Not Available Not Available No t Available potassium chloride ER 20 mEq tablet,exte nded release(par t/cryst) active Not Available Not Available Not Available tamsulosin 0.4 mg capsule TAKE 1 CAPSULE BY MOUTH ONCE DAILY AT THE SAME TIME EVERY DAY AFTER A MEAL active Not Available Not Available No t Available cephalexin 500 mg capsule 10/20 completed Not Available Not Available Not Available pantoprazol e 40 mg tablet,ramiro yed release TAKE ONE TABLET BY MOUTH EVERY DAY active Not Available Not Available No t Available metformin 1,000 mg tablet TAKE 1/2 TABLET BY MOUTH 2 TIMES DAILY 10/25 completed Not Available Not Available Not Available promethazin e 25 mg tablet 10/20 completed Not Available Not Available Not Available losartan 25 mg tablet TAKE ONE TABLET BY MOUTH EVERY DAY 11/15 completed Not Available Not Available Not Available gabapentin 300 mg capsule TAKE ONE CAPSULE BY MOUTH THREE TIMES DAILY active Not Available Not Available No t Available mupirocin 2 % topical ointment 10/20 completed Not Available Not Available Not Available furosemide 20 mg tablet TAKE 1 TABLET BY MOUTH EVERY OTHER DAY active Not Available Not Available No t Available gabapentin 100 mg capsule 10/25 completed Not Available Not Available Not Available ergocalcife rol (vitamin D2) 1,250 mcg (50,000 unit) capsule Take 1 capsule (50,000 Units total) by mouth once a week active Not Available Not Available No t Available SSD 1 % topical cream APPLY A 1/16 INCH (1.5 MM) THICK LAYER TO ENTIRE BURN AREA BY TOPICAL ROUTE 2 TIMES PER DAY active Not Available Not Available No t Available losartan 100 mg tablet TAKE ONE TABLET BY MOUTH EVERY DAY active Not Available Not Available No t Available clotrimazol e 1 % topical cream APPLY TO THE AFFECTED AND SURROUNDI NG AREAS OF SKIN BY TOPICAL ROUTE 2 TIMES PER DAY IN THE MORNING AND EVENING active Not Available Not Available No t Available Oyster Shell Calcium-500 500 mg (as carbonate 1,250 mg) tablet 10/25 completed Not Available Not Available Not Available insulin lispro (U-100) 100 unit/mL subcutaneou s pen Inject 10 Units under the skin 3 (three) times a day with meals active Not Available Not Available No t Available bupropion HCl XL 150 mg 24 hr tablet, extended release TAKE ONE TABLET BY MOUTH EVERY DAY active Not Available Not Available No t Available Alcohol Prep Pads 10/20 completed Not Available Not Available Not Available cholecalcif gerry (vitamin D3) 1,250 mcg (50,000 unit) capsule TAKE 1 CAPSULE BY MOUTH 2 TIMES A WEEK active Not Available Not Available No t Available FeroSul 325 mg (65 mg iron) tablet TAKE ONE TABLET BY MOUTH DAILY active Not Available Not Available No t Available Lantus Solostar U-100 Insulin 100 unit/mL (3 mL) subcutaneou s pen INJECT 20 UNITS UNDER THE SKIN NIGHTLY. active Not Available Not Available No t Available GaviLyte-N 420 gram oral solution 10/20 completed Not Available Not Available Not Available ClearLax 17 gram/dose oral powder 10/20 completed Not Available Not Available Not Available OneTouch Verio test strips TEST BLOOD SUGAR UP TO FOUR TIMES A DAY active Not Available Not Available No t Available Trulicity 1.5 mg/0.5 mL subcutaneou s pen injector INJECT 1.5 MG UNDER THE SKIN ONCE WEEKLY active Not Available Not Available No t Available TRUEplus Pen Needle 31 gauge x 3/16 USE WITH INSULIN PENS active Not Available Not Available No t Available TRUEplus Pen Needle 32 gauge x 5/32 active Not Available Not Available Not Available OneTouch Delica Plus Lancet 33 gauge 10/20 completed Not Available Not Available Not Available Mounjaro 5 mg/0.5 mL subcutaneou s pen injector Inject 5 mg under the skin every 7 days active Not Available Not Available No t Available Dexcom G7 Sensor device Change sensor every 10 days active Not Available Not Available No t Available Vitals Date Recorded Body height Body mass index (BMI) Body weight Oxygen saturation Oxygen saturation in Arterial blood by Pulse oximetry Body temperature Heart rate Provider Name and Address Organization Details Last Updated DateTime 4 190.5 cm 49 kg/m2 661822. 21 g 96 % 96 % 98.2 [degF] 86 /min Aaron Chow Ramses [facility] 11:30:50 Date Recorded Body height Body mass index (BMI) Body weight Provider Name and Address Organization Details Last Updated DateTime 03/02/2024 190.5 cm 48.7 kg/m2 108516.02 g Aaron Chow Ramses [facility] 03/02/2024 10:58:34 Date Recorded Body height Body mass index (BMI) Body weight Oxygen saturation Oxygen saturation in Arterial blood by Pulse oximetry Body temperature Heart rate Provider Name and Address Organization Details Last Updated DateTime 4 190.5 cm 48.7 kg/m2 743265. 02 g 97 % 97 % 97.9 [degF] 78 /min MARKEL Giraldo [facility] [employer] [facility] 4 10:07:44 Date Recorded Body height Body mass index (BMI) Body weight Oxygen saturation Oxygen saturation in Arterial blood by Pulse oximetry Body temperature Heart rate Provider Name and Address Organization Details Last Updated DateTime 4 190.5 cm 48.7 kg/m2 022342. 02 g 97 % 97 % 98.4 [degF] 80 /min MARKEL Giraldo [facility] [employer] [facility] 4 10:28:33 Date Recorded Body height Body mass index (BMI) Body weight Oxygen saturation Oxygen saturation in Arterial blood by Pulse oximetry Body temperature Heart rate Provider Name and Address Organization Details Last Updated DateTime 4 190.5 cm 48.5 kg/m2 055124. 84 g 98 % 98 % 98.2 [degF] 86 /min MARKEL Giraldo [facility] [employer] [facility] 4 16:02:10 Social History Question Answer Notes LastModified by Organizat ion Details LastModified Time Tobacco Smoking Status Never Smoker MARKEL Giraldo [facility] [employer] [facility] 06/16/2023 12:06:03 What Is Your Level Of Caffeine Consumption? Occasional [email or web address] Information not available 10/26/2023 What Was The Date Of Your Most Recent Tobacco Screening? 03/25/2024 [email or web address] Information not available 03/25/2024 Sex: Unknown Functional Status None recorded. Mental Status None recorded. Family History Relationship Description Onset Age of this Age Resolved Age Notes LastModified by Organization Details LastModified Time Mother Diabetes mellitus Not available 2023 12:04:56 Mother Arthritis [email or web address] Not availab le 10/26/2023 08:21:46 Mother Hypertensive disorder [email or web address] Not available 2023 12:05:19 Father Arthritis [email or web address] Not availab le 10/26/2023 08:21:46 Medical History Condition Response OBESITY Y ANEMIA/BLOOD DISORDER Y DIABETES, TYPE Y HEADACHES/MIGRAINES Y DIZZINESS Y Past Encounters Encounter ID Performer Location Encounter Start Date Encounter Closed Date Diagnosis/Indication Diagnosis SNOMED-CT Code Diagnosis ICD10 Code [id number] Bro Clinton DPM [facility] [place] [address] [place], [place] [id number] 1 06/16/2023 11:47:24 10/12/2023 11:29:56 [id number] Bro Clinton DPM [facility] [place] [address] [place], [place] [id number] 06/19/2023 11:25:12 01/09/2024 04:04:31 [id number] Bro Clinton DPM [facility] [place] [address] [place], [place] [id number] 09/15/2023 11:19:11 09/15/2023 12:08:56 Onychomycosis of toenails 278992747 B35.1 Onychomycosis 957554191 B35.1 [id number] Jaron Ballard MD [facility] [place] [address] 10/26/2023 08:16:47 10/26/2023 12:46:52 Obstructive sleep apnea syndrome 96793370 G47.33 Periodic l imb movement disorder 482400195 G47.61 D50.8 E83.42 [id number] MD EVELYN [facility] [place] [address] 11/16/2023 08:31:22 11/16/2023 16:09:24 Obstructive sleep apnea syndrome 74117317 G47.33 Periodic l imb movement disorder 973674360 G47.61 D50.8 E83.42 Anemia 465020913 D64.9 [id number] Bro Clinton DPM [facility] [place] [address] [address] 11/17/2023 10:58:11 11/17/2023 11:50:08 Diabetic peripheral neuropathy 095839424 E11.40 [id number] Bro Clinton DPM [facility] [place] [address] [place] [address] 02/09/2024 13:12:41 03/07/2024 16:26:18 Paronychia of toe of left foot 1035551338 1387780 L03.032 Pain in left foot 072376 5958 25186 M79.672 Ingrowing nail 894487104 L60.0 [id number] MD ANKITA [facility] [address] [place] [address] 02/15/2024 08:18:11 02/16/2024 15:20:36 Obstructive sleep apnea syndrome 68878258 G47.33 Periodic l imb movement disorder 996631495 G47.61 D50.8 Anemia 939093241 D64.9 [id number] Bro Clinton DPM [facility] [place] [address] [place] [address] 02/19/2024 08:34:18 02/22/2024 11:47:19 Paronychia of toe of left foot 8226662808 5580327 L03.032 Ingrowing nail 838830139 L60.0 [id number] Bro Clinton DPM [facility] [place] [address] [place] [address] 02/26/2024 11:24:03 02/26/2024 12:18:37 [id number] Bro Clinton DPM [facility] [place] [address] [address] 03/02/2024 10:45:51 03/04/2024 10:48:32 Ulcer of foot 21987690 L97.260 [id number] Bro Clinton DPM [facility] [address] [address] 03/11/2024 09:49:31 04/02/2024 04:08:09 [id number] Bro Clinton DPM [facility] [address] [address] 03/25/2024 10:22:24 03/28/2024 16:20:38 [id number] Bro Clinton DPM [facility] [address] [address] 04/25/2024 15:53:24 04/26/2024 14:10:52 Health Concerns Section Related Observation LastModified by Organization Detai ls LastModified Time None Recorded Concern Status LastModified by Organization Details LastModified Time None Recorded Advance Directives Directive None Recorded Payers Encounter Date Sequence Insurance Name Policy Number Policy Jaffe Covered Member ID Jaffe Member ID Guarantor Name 02/26/2024 1 [facility] ON OR AFTER 12/06/20 (MEDICAID REPLACEMENT - HMO) Cristobal Dollar [id number] Rene Dollar 03/02/2024 1 [facility] ON OR AFTER 12/06/20 (MEDICAID REPLACEMENT - HMO) Cristobal Dollar [id number] Rene Dollar 03/11/2024 1 [facility] ON OR AFTER 12/06/20 (MEDICAID REPLACEMENT - HMO) Cristobal Dollar [id number] Rene Dollar 03/25/2024 1 [facility] ON OR AFTER 12/06/20 (MEDICAID REPLACEMENT - HMO) Cristobal Dollar [id number] Rene Dollar 04/25/2024 1 [facility] ON OR AFTER 12/06/20 (MEDICAID REPLACEMENT - HMO) Cristobal Dollar [id number] Rene Dollar Notes Date Note Type Note Provider Name and Address Organization Details Recorded Time 02/26/2024 text/html Emergency visit; pt noticed pus and malodor, Lt great toe, med aspect where an ulcer has developed. Bro Clinton DPM [address], [place], [address], [employer] [facility] [employer] [facility] 02/26/2024 12:10:38 03/02/2024 text/html PT RTC for c/o ulceration, Lt hallux, extending to nail and underneath, pus emanating alfredo-ungually. Mild redness and warmth, no malodor or evidence of bone infection. Bro Clinton DPM [address], [place], [address], [employer] [facility] [employer] [facility] 03/03/2024 13:59:38 03/11/2024 text/html Pt RTC for cont c/o ulcerations Lt hallux, dressed sterilely and LWC recommended for pt as well as OWB as much as poss. Bro Clinton DPM [address], [place], [address], [employer] [facility] [employer] [facility] 03/13/2024 14:21:02 03/25/2024 text/html Pt RTC for c/o calluses both feet and open ulcer, Lt hallux Bro Clinton DPM [address], [place], [address], [employer] [facility] [employer] [facility] 03/28/2024 08:43:55 04/25/2024 text/html Pt c/o painful lesion and bleeding, Lt heel. Lesion measure 2.0 cm aicha and deep w/ red beefy interior and hyperkeratotic border, copious. No evidence of infection. Bro Clinton DPM [address], [place], [address], [facility] [employer] [facility] [employer] [facility] 04/26/2024 08:56:08
--- OUTSIDE RECORDS SUMMARY | 2024-06-08 00:05 | XMS_ITS | Clinical Summary ---
Author Organization [facility] Address [address] [place] [address] Care Team Providers Care Machine Stuffer Automatic Name Role Phone Mary Platt MD Primary Care Provider [phone] Allergies No known active allergies Medications acetaminophen- aspirin-caffei ne (EXCEDRIN MIGRAINE) 250-250-65 mg per tabletIndicati ons:Pain Take 1 tablet by mouth daily as needed for headaches or pain Active blood-glucose meter kit Use as directed. 1 kit 03/11/20 Active blood glucose diagnostic (glucose blood) strip Use as directed up to four times a day. 100 each 1 03/11/20 Active lancets misc Use as directed up to 4 times a day. 100 each 1 03/11/[address] (PROTONIX) 40 mg EC tabletIndicati ons:Stress Ulcer Prophylaxis Take 1 tablet (40 mg total) by mouth daily 30 tablet 1 03/26/20 Active glucagon (Baqsimi) 3 mg/actuation spray,non-aero rachid One spray into one nostril once as directed by provider for low blood sugar. 1 each 03/25/20 Active alcohol swabs (Alcohol Wipes) pads, medicated Use as directed. 100 each 03/25/20 Active acetaminophen (TYLENOL) 500 mg tablet Take 1 tablet (500 mg total) by mouth every 6 (six) hours as needed Active ferrous sulfate 325 mg (65 mg of elemental iron) tablet 06/02/20 Active furosemide (LASIX) 20 mg tablet Take 1 tablet (20 mg total) by mouth every other day Active gabapentin (NEURONTIN) 300 mg capsule Take 1 capsule (300 mg total) by mouth 3 (three) times a day 07/23/19 24 Active ClearLax 17 gram/dose bulk powder Take 17 g by mouth daily as needed (constipation) 07/17/19 24 Active tamsulosin (FLOMAX) 0.4 mg extended release capsule Take 1 capsule (0.4 mg total) by mouth daily after dinner 07/16/19 24 Active insulin glargine (LANTUS) 100 unit/mL (3 mL) pen for injectionIndic ations:Type 2 diabetes mellitus with hyperglycemia, with long-term current use of insulin (HCC) Inject 20 Units under the skin nightly 15 mL 6 10/08/19 24 025 Active insulin lispro (ADMELOG) 100 unit/mL pen for injectionIndic ations:type 1 diabetes mellitus Inject 10 Units under the skin 3 (three) times a day with meals 15 mL 6 10/08/19 24 025 Active buPROPion SR (WELLBUTRIN SR) 150 mg 12 hr tablet Take 1 tablet (150 mg total) by mouth 2 (two) times a day 02/03/20 24 Active loperamide (IMODIUM) 2 mg capsule Take 1 capsule by mouth 4 times per day as needed 11/10/19 24 Active losartan (COZAAR) 100 mg tablet Take 1 tablet (100 mg total) by mouth daily 01/12/20 24 Active tirzepatide (Mounjaro) 5 mg/0.5 mL pen injectorIndica tions:type 2 diabetes mellitus Inject 5 mg under the skin every 7 days 6 mL 3 02/17/20 24 025 Active metFORMIN (GLUCOPHAGE) 500 mg tabletIndicati ons:Type 2 diabetes mellitus with hyperglycemia, with long-term current use of insulin (HCC) Take 1 tablet (500 mg total) by mouth 2 (two) times a day with meals 180 tablet 3 02/17/20 24 025 Active atorvastatin (LIPITOR) 20 mg tabletIndicati ons:Hyperlipid emia due to type 2 diabetes mellitus (HCC) Take 1 tablet (20 mg total) by mouth nightly 90 tablet 3 02/17/20 24 025 Active Dexcom G7 Sensor deviceIndicati ons:Type 2 diabetes mellitus with hyperglycemia, with long-term current use of insulin (HCC) Change sensor every 10 days 10 each 3 02/17/20 24 Active pen needle, diabetic 32 gauge x /32 needleIndicati ons:Type 2 diabetes mellitus with hyperglycemia, with long-term current use of insulin (HCC) Use as directed 3 times a day. 100 each 3 02/17/20 24 Active ergocalciferol (VITAMIN D) 50,000 unit capsuleIndicat ions:Vitamin D Deficiency Take 1 capsule (50,000 Units total) by mouth once a week 12 capsule 1 02/18/20 24 025 Active ibuprofen 200 mg tab/cap Take 2 tablet/capsule (400 mg total) by mouth every 6 (six) hours as needed for pain Active calcium carbonate (OS-KRISTY) 1,250 mg (500 mg elemental) tabletIndicati ons:hypocalcem ia Take 1 tablet (1,250 mg total) by mouth 2 (two) times a day 60 tablet 1 03/25/20 23 024 Discontinued(T herapy completed) cyanocobalamin (Vitamin B-12) 1,000 mcg/mL injection 024 Discontinued famotidine (PEPCID) 40 mg tablet Take 1 tablet (40 mg total) by mouth nightly 09/02/19 24 024 Discontinued fluconazole (DIFLUCAN) 200 mg tablet 03/25/20 23 024 Discontinued mupirocin (BACTROBAN) 2 % ointment 04/28/20 23 024 Discontinued promethazine (PHENERGAN) 25 mg tablet 07/10/19 24 024 Discontinued traMADoL (ULTRAM) 50 mg tablet 03/02/20 23 024 Discontinued clotrimazole 1 % cream APPLY TO THE AFFECTED AND SURROUNDING AREAS OF SKIN BY TOPICAL ROUTE 2 TIMES PER DAY IN THE MORNING AND EVENING 02/03/20 24 024 Discontinued SSD 1 % cream APPLY A 1/16 INCH (1.5 MM) THICK LAYER TO ENTIRE BURN AREA BY TOPICAL ROUTE 2 TIMES PER DAY 02/09/20 24 024 Discontinued tirzepatide (Mounjaro) 2.5 mg/0.5 mL pen injectorIndica tions:Type 2 diabetes mellitus with hyperglycemia, with long-term current use of insulin ([facility]) Inject 0.5 mL (2.5 mg total) under the skin every 7 days 2 mL 02/17/20 24 024 Discontinued Active Problems Problem Noted Date Diagnosed Date Hypertension associated with type 2 diabetes manas litus 02/17/2024 Assessment & Plan (02/17/2024 3:29 PM CDT): Chronic problem. Currently taking losartan 100mg daily, lasix 20mg daily Hyperlipidemia due to type 2 diabetes mellitus 0 02/17/2024 Assessment & Plan (02/17/2024 4:05 PM CDT): Chronic problem. At goal on current Atorvastatin 20mg. Last lipid panel: 03/06/23 LDL=67, TG=93. Type 2 diabetes mellitus wit h hyperglycemia, with long-term current use of insulin 10/08/2023 Assessment & Plan (02/17/2024 4:31 PM CDT): Chronic problem. Uncontrolled. A1c worsened from 6.3% 10/08/23 to now 7.8%. -will change from Trulicity to Mounjaro 2.5mg weekly x 5 mg weekly. Current medications: Metformin 500mg twice daily before meals Mounjaro 2.5mg weekly x 4 weeks then increase 5mg weekly Lantus 20 units at bedtime Humalog 10 units 3 times daily before meals For blood sugars over 200: take 15 units DM eye exam Summer 2023 [facility] in [place]. Letter sent to get copy of report. UTD on labs. Discussed with Rene Hyatt: Strive for regular exercise (30min most days) and diet (get at least 4-5 servings of fruit and veggies daily, avoid processed foods, increase lean protein intake and decrease carb portions as well as fruit juices, regular soda & desserts). Watch carbs and simple sugars. Check the blood sugar: Dexcom G7. Check the feet daily for skin breakdown and infection. Assessment & Plan (10/08/2023 2:25 PM CDT): Chronic, stable Start blood glucose monitoring with Dexcom G7 The patient was provided with samples of the sensors prescriptions to be sent Increase Trulicity to 5 mg week Continue Lantus, 20 units at bedtime Humalog, 10 units before meals. For sugars over 200, 15 units Metformin 500 mg twice a day with meals Advised on started 20 to 30 minutes daily aerobic and resistance exercise Low calorie low carb diet, limiting carbs to no more than 2- 3 per meal Class 3 obesity 03/16/2023 Assessment & Plan (03/18/2023 1:01 PM CDT): Complicates all aspects of care. - Perform STOP BANG > At least intermediate risk > Amb ref pulm vs sleep - Eval for bariatric surgery, GLP-RA would be appropriate Hypertension 03/16/2023 Assessment & Plan (03/19/2023 11:47 AM CDT): Blood pressure modestly elevated. - elect DEBBI/ARB in DM (ACR 44) > start losartan 25 03/17 Vitamin D deficiency 03/10/2023 Assessment & Plan (02/17/2024 4:03 PM CDT): Chronic problem. 03/23/23 found to have undetectable Vit D level. Was started on ergocalciferol 50,000IU weekly x 2 mos then to move to OTC 2000IU daily. No repeat Vitamin D levels found. Continues on ergocalciferol 50,000IU weekly. Will check D results; will continue 50K if still low or will move to otc 2000IU daily if normal. Will update Vit D level today. Verified that he uses [facility]. Aware to check results/results letter in [facility]. Will contact by phone if needed. Assessment & Plan (03/23/2023 6:31 PM CDT): Undetectable Vit D Level - continue vit d 50k international units twice weekly x 2 months and calcium supplementation for x3 months. - plan for vit d 2k daily after 50k loading phase - f/u with PCP Diabetic foot ulcer (CMS/HCC) 03/10/2023 Assessment & Plan (03/23/2023 6:32 PM CDT): Wound to planter 1st metatarsal head. S/p debridement with podiatry 03/07, significant depth but negative probe to bone. L foot XR with no OM - continue daily dressing changes - Wound RN consult for final recommendations for HHRN. 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 No signs of bleeding -CTM Hgb Scrotal abscess 03/06/2023 Assessment & Plan (03/25/2023 3:16 PM CDT): Presented to OSH ED with scrotal pain [...] day at discharge. - Urology removed drain Perineal abscess 03/06/2023 Resolved Problems Problem Noted Date Diagnosed Date Resolved Date Adjustment disorder 03/16/2023 03/25/20 Assessment & Plan (03/17/2023 12:01 PM CDT): PHQ-4 with likely depression, symptoms are new in onset since dramatic change in health status, separation from family. Denies history of having thoughts about hurting himself, denies having a plan to hurt himself. - discuss diagnosis - provide reassurance - eval for SI as indicated - consider CBT / SSRI if symptoms impair recovery / function, persist for 7d, or significantly worsen - getting back home to help provide care for mother is a major motivator for patient T1DM (type 1 diabetes mellitus) 03/10/2023 02/17/2024 Overview (03/10/2023): Presented on this admission in DKA with A1c 13.3, AGMA, ketones and urine and serum. Managed with insulin gtt and transitioned to basal/bolus currently Assessment & Plan (03/25/2023 3:16 PM CDT): Newly diagnosed this admission. 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 male with PMH of non healing foot wounds who presented to OSH for scrotal pain and swelling for [address] A/P showed scrotal soft tissue edema and fluid collection about 7.5x4.9cm in scrotum/perineum. Afebrile and HDS on presentation. Labs showed leukocytosis 17.3, and elevated glucose concerning for DKA with new diagnosis of diabetes. Blood cultures 03/06 NGTD. XR L foot did not show evidence of osteomyelitis. He received a dose of vancomycin, cefepime and clindamycin and was transferred for urology evaluation. He was taken to OR with urology and general surgery on 03/06 and was found to have purulent fluid with necrotic tissue in perineum that extended down towards anus and tracked up to scrotum into inguinal canals. KARLA confirmed no connection. OR cultures grew Strep anginosus and mixed microorganisms. He was started on meropenem and vancomycin and admitted to SICU postop for insulin gtt. Returned back to OR on 03/07 for second look and repeat debridement of deeper tissues with WV placement. No repeat cultures obtained. WV complicated by fecal content leaking from fecal management devices. He is planned for repeat OR for WV takedown tomorrow to evaluate proximity to rectum and partial closure. Podiatry was also consulted for L foot ulcer and had bedside debridement, deepest level subcutaneous tissue not probing to bone and no purulence. Recommendations: - ok to stop meropenem and vancomycin - start IV ampicillin sulbactam 3g q6h - will follow surgical plans, if concern for residual infection please send repeat intra-op cultures - ID will continue to follow Encounters Date Type Department Care Team Description 05/12/2024 1:23 PM [facility] - 05/13/2024 4:10 PM [facility] Emergency [facility] Emergency Department [address] [place] [id number] Ruth Patel MD Moslener, Matthew David, MD Bashiti, Samer Mohammad, DO Cellulitis of left lower extremity (Primary Dx); Acute kidney injury (HCC); Sepsis, due to unspecified organism, unspecified whether acute organ dysfunction present (HCC) Discharge Disposition: Discharge to a short term hospital for IP from Last 3 Months Immunizations Name Administration Dates Next Due Influenza, Quadrivalent, Spl it, Preservative Free, Intramuscular 03/11/2023 Medical History Medical History Date Comments Type 2 diabetes mellitus (HCC) Hypertension 03/16/2023 Family History Medical History Relation Name Comments Diabetes Mother Relation Name Status Comments Mother Alive Social History Tobacco Use Types Packs/Day Years Used Date Smoking Tobacco: Never OASIS D0700: Social Isolation Answer Da te Recorded Frequency of experiencing loneliness or isolatio n Never 05/06/2023 OASIS A1250: Transportation Answer Date Recorded Lack of Transportation (Medical) No 05/06/2023 Lack of Transportation (Non-Medical) No 05/06/2023 Patient Unable or Declines to Respond No 05/06/2023 OASIS B1300: Health Literacy Answer Melvin e Recorded Frequency of needing help to read materials from doctor or pharmacy Never 05/06/2023 [facility] Utilities Answer Date Recorded In the past 12 months has th e [employer], gas, oil, or water [employer] threatened to shut off services in your home? No 03/31/2023 Social Connection and Isolation Panel [NHANES] A nswer Date Recorded In a typical week, how many times do you talk on the phone with family, friends, or neighbors? Three times a week 03/31/2023 How often do you get togethe r with friends or relatives? Once a week 03/31/2023 How often do you attend chur ch or restorationism services? Never 03/31/2023 Do you belong to any clubs o r organizations such as jew groups, unions, fraternal or athletic groups, or school groups? No 03/31/2023 How often do you attend meet ings of the clubs or organizations you belong to? Never 03/31/2023 Are you , , di vorced, , never , or living with a partner? Never 03/31/2023 AUDIT-C Answer Date Recorded Q1: How often do you have a drink containing alcohol? Never 03/12/2023 Q2: How many drinks containi ng alcohol do you have on a typical day when you are drinking? Patient does not drink Q3: How often do you have si x or more drinks on one occasion? Never 03/12/2023 Overall Financial Resource Strain (CARDIA) Answe r Date Recorded How hard is it for you to pa y for the very basics like food, housing, medical care, and heating? Somewhat hard 03/31/2023 Hunger Vital Sign Answer Date Recorded Within the past 12 months, y ou worried that your food would run out before you got the money to buy more. Never true 03/31/20 23 Within the past 12 months, t he food you bought just didn't last and you didn't have money to get more. Never true 03/31/2023 PRAPARE - Transportation Answer Date Re corded In the past 12 months, has l ack of transportation kept you from medical appointments or from getting medications? No 03/09 In the past 12 months, has l ack of transportation kept you from meetings, work, or from getting things needed for daily living? No 03/31/2023 Housing Stability Vital Sign Answer Melvin e Recorded In the last 12 months, was t here a time when you were not able to pay the mortgage or rent on time? No 03/31/2023 In the last 12 months, how many places have you lived? 2 03/31/2023 In the last 12 months, was t here a time when you did not have a steady place to sleep or slept in a care home (including now)? Yes 03/31/2023 Personal Safety Answer Date Recorded Have you ever been in or are you currently in a harmful physical or emotional relationship or is someone making you feel afraid or unsafe? Denies 05/12/2024 Sex and Gender Information Value Date Recorded Sex Assigned at Not on file Legal Sex Male 7:12 PM [facility] Gender Identity Not on file Sexual Orientation Not on file Obstetrics History Last Filed Vital Signs Vital Sign Reading Time Taken Comments Blood Pressure 147/63 05/13/2024 2:55 PM [facility] Pulse 94 05/13/2024 2:55 PM [facility] Temperature 37.1 ??C (98.8 ??F) 05/13/2024 2:55 PM CS T Respiratory Rate 23 05/13/2024 2:55 PM [facility] Oxygen Saturation 96% 05/13/2024 2:55 PM [facility] Inhaled Oxygen Concentration - - Weight 188 kg (414 lb 7.4 oz) 05/12/2024 1:27 PM [facility] Height 198.1 cm (6' 6 ) 05/12/2024 1:27 PM [facility] Body Mass Index 47.9 05/12/2024 1:27 PM [facility] Plan of Treatment Health Maintenance Due Date Last Done Comments Colon Cancer Screening-Colonoscopy 1979 Depression Screening 1979 Hepatitis C Screening 1979 Pneumococcal vaccine <65 (1 of 2 - PCV) 1985 DTaP/Tdap/Td Vaccine (1 - Tdap) 1990 Hepatitis B Screening 1997 Regular Well Visit/Exam 18-64 1997 Influenza Vaccine (#1) 2024 03/11/2023 Lipid Panel 03/06/2024 03/06/2023 Albumin Creatinine Ratio, Urine 03/16/2024 03/16/2023 Hemoglobin A1C 08/16/2024 02/17/2024, 05/0 07/2023, 03/06/2023, Additional history exists Dilated Eye Exam 10/12/2024 10/13/2023 Foot Exam 02/16/2025 02/17/2024 eGFR 05/12/2025 05/12/2024, 04/1 06/2023, 03/22/2023, Additional history exists HPV Vaccines Aged Out No longer eligi ble based on patient's age to complete this topic Procedures Procedure Name Priority Date/Time Associated Diagnosis Comments POCT GLUCOSE DEVICE Routine 05/13/2024 8 :31 AM [facility] POCT GLUCOSE DEVICE Routine 05/12/2024 7 :52 PM [facility] CRP (ACUTE PHASE) STAT 05/12/2024 2:5 8 PM [facility] EGFR STAT 05/12/2024 2:58 PM [facility] COMPREHENSIVE METABOLIC PANEL STAT 05/12/2024 2:58 PM [facility] XR FOOT LEFT 3 OR MORE VIEWS ED 05/12/2024 1:58 PM [facility] BLOOD CULTURE STAT 05/12/2024 1:42 PM [facility] BLOOD CULTURE STAT 05/12/2024 1:42 PM [facility] DIFFERENTIAL AUTO STAT 05/12/2024 1:3 4 PM [facility] SEPSIS LACTATE WITH REFLEX STAT 05/12/2024 1:34 PM [facility] CBC WITH AUTO DIFFERENTIAL STAT 05/12/2024 1:34 PM [facility] POCT HEMOGLOBIN A1C Routine 02/17/2024 2 :56 PM CDT Type 2 diabetes mellitus with hyperglycemia, with long-term current use of insulin (HCC) HM DIABETES EYE EXAM Routine 10/13/2023 8:15 AM CDT ALBUMIN CREATININE RATIO, URINE Routine 03/16/2023 4:21 PM CDT LIPID PANEL STAT 03/06/2023 9:15 PM CDT from Last 3 Months or Most Recently Relevant to Health Maintenance Results * (ABNORMAL) POCT glucose (05/13/2024 8:31 AM [facility]) Glucose, POC 202(H) 70 - 199 mg/dL Comment:Testing performed by : [address] [address] Glucose comment 1 Use This Result NICOLASA SANTILLAN Comment:Testing performed by : [address] [address] Blood 05/13/2024 8:31 AM [facility] 05/13/2024 8:31 AM [facility] Ancelmo Conroy MD LAB POCT ORDERABLES - DEVICE Final Result Performing Organization Address [facility] Co de Phone Number NICOLASA [address] [place] [employer] [place] [address] * POCT glucose (05/12/2024 7:52 PM [facility]) Glucose, POC 188 70 - 199 mg/dL Comment:Testing performed by : [address] [id number] Blood 05/12/2024 7:52 PM [facility] 05/12/2024 7:52 PM [facility] us Ruth Patel MD LAB POCT ORDERABLES - DEVICE Fi nal Result NICOLASA [facility] [place] [employer] [place] [address] * eGFR (05/12/2024 2:58 PM [facility]) eGFR 64 >=60 mL/min/1. 73 m2 Comment: Interpretive Data Reference Interval Normal ?>/= 90 mL/min/1.73m2 Mildly decreased* ? 60 - 89 mL/min/1.73m2 Mildly to moderately decreased ?45 - 59 mL/min/1.73m2 Moderately to severely decreased ??30 - 44 mL/min/1.73m2 Severely decreased ?15 - 29 mL/min/1.73m2 Kidney Failure ?< 15 ??mL/min/1.73m2 *Relative to young adult level Estimated glomerular filtration rate is determined by the 2020 CKD-EPI equation recommended by the National Kidney Foundation (A Unifying Approach to GFR Estimation: Recommendations of the NKF-ASK Task Force on Reassessing the Inclusion of Race in Diagnosing Kidney Disease, JASN 2020). The CKD-EPI equation should not be used for patients with unstable renal function and has not been validated in children and those over 70. Current interpretive data was last reviewed 2021. Testing performed by: [facility], [address] [place] [address]., [address] Blood 05/12/2024 2:58 PM [facility] 05/12/2024 3:03 PM [facility] us [facility] Jorge GALVAN LAB BLOOD ORDERABLES Final Resu lt NICOLASA [address] [facility] Department [place] [address] * (ABNORMAL) CRP (acute phase) (05/12/2024 2:58 PM [facility]) Pathologist [facility] CRP 270.4(H) <=10.0 mg/L Comment:Testing performed by : [address] [address] Blood 05/12/2024 2:58 PM [facility] 05/12/2024 3:03 PM [facility] Jorge GALVAN LAB BLOOD ORDERABLES Final Resu lt NICOLASA [address] [facility] Department [place] [address] * (ABNORMAL) Comprehensive metabolic panel (05/12/2024 2:58 PM [facility]) Sodium 131(L) 135 - 145 mmol/L Comment:Testing performed by : [address] [address] Potassium, pl 4.0 3.3 - 4.9 mmol/L NICOLASA Comment:Testing performed by : [address] [address] Chloride 97 97 - 110 mmol/L NICOLASA Comment:Testing performed by : [address] [address] CO2 20(L) 22 - 32 mmol/L NICOLASA Comment:Testing performed by : [address] [address] Anion gap 14 2 - 15 mmol/L NICOLASA Comment:Testing performed by : [address] [address] BUN 35(H) 6 - 25 mg/dL NICOLASA Comment:Testing performed by : [address] [address] Creatinine 1.40(H) 0.80 - 1.30 mg/dL NICOLASA Comment:Testing performed by : [address] [address] Glucose 207(H) 70 - 199 mg/dL NICOLASA Comment: Interpretive Data Fasting glucose >/= 126 mg/dl is diagnostic for diabetes. ?? Fasting is defined as no caloric intake for at least 8 hours. Fasting glucose between 100 mg/dl to 125 mg/dl is diagnostic of prediabetes. In a patient with classic symptoms of hyperglycemia or hyperglycemic crisis, a random glucose >/= 200 mg/dl is diagnostic for diabetes. In the absence of unequivocal hyperglycemia, results should be confirmed by repeat testing. The classification and Diagnosis of Diabetes Diabetes Care 202; 46: S19-S40. Current interpretive data was last revised 2022. Testing performed by: [facility], [address] [place] [address]., [address] Calcium 8.1(L) 8.5 - 10.3 mg/dL NICOLASA Comment:Testing performed by : [address] [address] Bilirubin, total 0.5 0.1 - 1.2 mg/dL NICOLASA Comment:Testing performed by : [address] [address] Protein, pl 6.1(L) 6.5 - 8.5 g/dL NICOLASA Comment:Testing performed by : [address] [address] Albumin 2.3(L) 3.5 - 5.0 g/dL NICOLASA Comment:Testing performed by : [address] [address] Alk phos 143(H) 40 - 130 Units/L NICOLASA Comment:Testing performed by : [address] [address] ALT 17 7 - 55 Units/L NICOLASA Comment:Testing performed by : [address] [address] AST 22 10 - 50 Units/L NICOLASA Comment:Testing performed by : [address] [address] Blood 05/12/2024 2:58 PM [facility] 05/12/2024 3:03 PM [facility] us Rehab Jorge GALVAN LAB BLOOD ORDERABLES Final Resu lt NICOLASA [address] [facility] Department [place] [address] * XR Foot Left 3 or More Views (05/12/2024 1:58 PM [facility]) Anatomical Region Laterality Modality Lower Extremities, Foot Left Computed Radiography 05/12/2024 2:45 PM [facility] Narrative 05/12/2024 2:51 PM [facility] EXAM DESCRIPTION: XR FOOT LEFT 3 OR MORE VIEWS REASON FOR STUDY: Osteomyelitis, foot ?? Pt states open foot wound, skin coming off heal of foot 4 months ?? TECHNIQUE: 3 ??radiographic view(s) of the ??left foot . COMPARISON: 03/06/2023 FINDINGS: No acute fracture or dislocation identified. ??Accessory ossicle at the base of the 5th metatarsal. ??No osseous cortical erosions. ??No radiopaque foreign body. ??Soft tissue gas within the hindfoot. ??Diffuse soft tissue swelling of the foot. IMPRESSION: Diffuse soft tissue swelling of the foot. ??Soft tissue gas within the hindfoot. ??No acute osseous abnormality. THIS IS AN ELECTRONICALLY VERIFIED FINAL REPORT 05/12/2024 2:51 PM - Electronically signed by ??Drew Moore M.D. KR: NO D: ??05/12/2024 2:51 PM T: ??05/12/2024 2:51 PM Report ID: [id number] Reading Location: ??[id number] Procedure Note Drew Moore MD - 05/12/2024 EXAM DESCRIPTION: XR FOOT LEFT 3 OR MORE VIEWS REASON FOR STUDY: Osteomyelitis, foot Pt states open foot wound, skin coming off heal of foot 4 months TECHNIQUE: 3 radiographic view(s) of the left foot . COMPARISON: 03/06/2023 FINDINGS: No acute fracture or dislocation identified. Accessory ossicleat the base of the 5th metatarsal. No osseous cortical erosions. Noradiopaque foreign body. Soft tissue gas within the hindfoot. Diffuse soft tissue swelling of the foot. IMPRESSION: Diffuse soft tissue swelling of the foot. Soft tissue gaswithin the hindfoot. No acute osseous abnormality. THIS IS AN ELECTRONICALLY VERIFIED FINAL REPORT 05/12/2024 2:51 PM - Electronically signed by Drew Moore M.D. KR: KR Report ID: [id number] Reading Location: [id number] Ruth Patel MD IMG XR PROCEDURES Final Result * Blood culture Blood Peripheral (05/12/2024 1:42 PM [facility]) Report Final Report: No growth Comment:Testing performed by : [facility], [address] [place]., [address] Blood (Peripheral) 05/12/2024 1:42 PM [facility] 05/12/2024 5:28 PM [facility] Narrative NICOLASA - 05/17/2024 7:00 AM [facility] From a different site than #1. Draw Blood cultures before administration of Antibiotics Collection->Peripheral 1. ?Blood cultures are incubated for 4 days on a continuously monitored blood culture system. The first report of a negative culture is issued within 24 hours of receipt of the specimen in the laboratory. 2. ?Positive culture results are reported as soon as they are detected. 3. ?The most important factor for detection of microbes in the setting of bloodstream infection is the volume of blood submitted for culture. Failure to collect an optimal blood volume can result in false negative blood cultures. 4. ? For pediatric patients, the recommended blood volume to collect follows a weight based strategy. See the electronic test catalog for collection instructions. 5. ?For positive blood cultures, a rapid molecular test may be performed for organism identification using the michael ePlex blood culture identification panel for gram positive (BCID-GP) and gram negative (BCID-GN) organisms. This nucleic acid amplification test detects microbial DNA in positive blood culture broth. This assay has been cleared by the [place] Food and Drug Administration and its performance characteristics have been verified by the [facility]. For questions about this culture, contact the Microbiology Laboratory at [phone]. Interpretive data was last revised on 24. Ruth Patel MD LAB MICROBIOLOGY - GENERAL MELIDA COLLINS Final Result N[facility] [address] [facility] Department [place] [address] * Blood culture Blood Peripheral (05/12/2024 1:42 PM [facility]) Report Final Report: No growth Comment:Testing performed by : [facility], [address] [facility] [place]., [address] Blood (Peripheral) 05/12/2024 1:42 PM [facility] 05/12/2024 5:28 PM [facility] Narrative NICOLASA - 05/17/2024 7:00 AM [facility] Draw Blood cultures before administration of Antibiotics Collection->Peripheral Received only aerobic blood culture bottle 1. ?Blood cultures are incubated for 4 days on a continuously monitored blood culture system. The first report of a negative culture is issued within 24 hours of receipt of the specimen in the laboratory. 2. ?Positive culture results are reported as soon as they are detected. 3. ?The most important factor for detection of microbes in the setting of bloodstream infection is the volume of blood submitted for culture. Failure to collect an optimal blood volume can result in false negative blood cultures. 4. ? For pediatric patients, the recommended blood volume to collect follows a weight based strategy. See the electronic test catalog for collection instructions. 5. ?For positive blood cultures, a rapid molecular test may be performed for organism identification using the michael ePlex blood culture identification panel for gram positive (BCID-GP) and gram negative (BCID-GN) organisms. This nucleic acid amplification test detects microbial DNA in positive blood culture broth. This assay has been cleared by the [place] Food and Drug Administration and its performance characteristics have been verified by the [facility]. For questions about this culture, contact the Microbiology Laboratory at [phone]. Interpretive data was last revised on 24. us Rehab Jorge GALVAN LAB MICROBIOLOGY - GENERAL MELIDA COLLINS Final Result Performing Organization Address City/[facility] Co de Phone Number NICOLASA [address] [facility] Department [place] [address] * Sepsis Lactate w/ Reflex (05/12/2024 1:34 PM [facility]) Pathologist [facility] Sepsis Lactate 2.0 0.7 - 2.0 mmol/L Comment:Testing performed by : [address] [address] Blood 05/12/2024 1:34 PM [facility] 05/12/2024 1:43 PM [facility] Jorge GALVAN LAB BLOOD ORDERABLES Final Resu lt [place] [address] [facility] Department [place] [address] * (ABNORMAL) Differential, auto (05/12/2024 1:34 PM [facility]) Pathologist [facility] Neutrophil abs 20.7(H) 1.5 - 6.5 K/cumm Comment:Testing performed by : [address] [address] Imm gran abs 0.5(H) 0.0 - 0.1 K/cumm NICOLASA Comment:Testing performed by : [address] [address] Lymphocyte abs 1.7 0.8 - 3.3 K/cumm NICOLASA Comment:Testing performed by : [address] [address] Monocyte abs 1.9(H) 0.2 - 0.8 K/cumm NICOLASA Comment:Testing performed by : [address] [address] Eosinophil abs 0.0 0.0 - 0.5 K/cumm NICOLASA Comment:Testing performed by : [address] [address] Basophil abs 0.1 0.0 - 0.1 K/cumm NICOLASA Comment:Testing performed by : [address] [address] Neutrophil pct 83.4 % NICOLASA Comment: Interpretive Data Percent cell count reference ranges are not reported, since discordance with absolute values may lead to misinterpretation of CBC data. Current Interpretive Data was last revised on 2017. Testing performed by: [address] [address] Imm gran pct 2.1 % NICOLASA Comment: Interpretive Data Percent cell count reference ranges are not reported, since discordance with absolute values may lead to misinterpretation of CBC data. Current Interpretive Data was last revised on 2017. Testing performed by: [address] [address] Lymphocyte pct 6.6 % NICOLASA Comment: Interpretive Data Percent cell count reference ranges are not reported, since discordance with absolute values may lead to misinterpretation of CBC data. Current Interpretive Data was last revised on 2017. Testing performed by: [address] [address] Monocyte pct 7.4 % NICOLASA Comment: Interpretive Data Percent cell count reference ranges are not reported, since discordance with absolute values may lead to misinterpretation of CBC data. Current Interpretive Data was last revised on 2017. Testing performed by: [address] [address] Eosinophil pct 0.2 % NICOLASA Comment: Interpretive Data Percent cell count reference ranges are not reported, since discordance with absolute values may lead to misinterpretation of CBC data. Current Interpretive Data was last revised on 2017. Testing performed by: [address] [address] Basophil pct 0.3 % NICOLASA Comment: Interpretive Data Percent cell count reference ranges are not reported, since discordance with absolute values may lead to misinterpretation of CBC data. Current Interpretive Data was last revised on 2017. Testing performed by: [address] [address] Blood 05/12/2024 1:34 PM [facility] 05/12/2024 1:43 PM [facility] Jorge GALVAN LAB BLOOD ORDERABLES Final Resu lt NICOLASA [address] [facility] Department [place] [address] * (ABNORMAL) CBC with auto differential (05/12/2024 1:34 PM [facility]) [facility] WBC 24.9(H) 3.8 - 9.9 K/cumm Comment:Testing performed by : [address] [address] Hgb 9.4(L) 13.0 - 17.5 g/dL NICOLASA Comment:Testing performed by : [address] [address] Hct 27.9(L) 38.9 - 50.3 % NICOLASA Comment:Testing performed by : [address] [address] Plt 336 150 - 400 K/cumm NICOLASA Comment:Testing performed by : [address] [address] MPV 10.0 9.1 - 12.3 fL NICOLASA Comment:Testing performed by : [address], [address] RBC 3.26(L) 4.30 - 5.80 M/cumm NICOLASA Comment:Testing performed by : [address] [address] MCV 85.6 81.3 - 96.4 fL NICOLASA Comment:Testing performed by : [address] [address] MCH 28.8 27.1 - 33.3 pg NICOLASA Comment:Testing performed by : [address] [address] MCHC 33.7 32.3 - 35.7 g/dL NICOLASA Comment:Testing performed by : [address], [address] RDW CV 13.5 11.1 - 14.9 % NICOLASA Comment:Testing performed by : [address] [address] RDW SD 42.4 35.7 - 48.1 fL NICOLASA Comment:Testing performed by : [address] [address] NRBC abs 0.00 0.00 - 0.01 K/cumm NICOLASA SANTILLAN Comment:Testing performed by : [facility], [address] [place] [address]., [address] Blood 05/12/2024 1:34 PM [facility] 05/12/2024 1:43 PM [facility] Ruth Patel MD LAB BLOOD ORDERABLES Final Resu lt N[facility]ASA [address] [facility] Department [place] [address] * (ABNORMAL) POCT hemoglobin A1c (02/17/2024 2:56 PM CDT) Hemoglobin A1C, POC 7.8 4.0 - 5.6 % Blood 02/17/2024 2:56 PM CDT Result [facility] Natividad Mckeon SH[employer]ER POINT OF CARE TEST ORDERA BLES Final Result * DIABETES EYE EXAM (10/13/2023 8:15 AM CDT) Result [facility] Historical Provider HEALTH MAINTENANCE Edited Result - Final * (ABNORMAL) Albumin Creatinine Ratio, Urine (03/16/2023 4:21 PM CDT) Albumin Ur 39.3 mg/L [facility] Comment: Interpretive Data No reference range established. Current interpretive data was last revised 2018. Creatinine Ur 88.9 mg/dL NICOL[facility]A [facility] Comment: Interpretive Data No reference range established. Current interpretive data was last revised 2018. Albumin Creatinine Ratio, Ur 44(H) 1 - 29 mg/g N[facility]A [facility] Urine 03/16/2023 4:21 PM CDT 03/16/2023 6:01 PM CDT Luis Daniel Hanna NP LAB URINE ORDERABLES Fin al Result NICOLASA [facility] Department [place] [address] * (ABNORMAL) Lipid panel (03/06/2023 9:15 PM CDT) Cholesterol 106 30 - 199 mg/dL NICOLASA VALENTIN Comment: Interpretive Data Ages < or = 19 years ??Acceptable: ? <170 mg/dL ??Borderline high: ??170-199 mg/dL ??High: ? >or= 200 mg/dL Ages > or = 20 years ??Desirable: ?<200 mg/dL ??Borderline high: ??200-239 mg/dL ??High: ? >or= 240 mg/dL Literature References: 1. Expert Panel on Integrated Guidelines for Cardiovascular Health and Risk Reduction in Children and Adolescents. Pediatrics 2011;128:S213 2. NCEP Expert Panel. Circulation 2004;110:227 Current Interpretive Data was last revised on 2018. Triglycerides 93 <=149 mg/dL NICOLASA [facility] Comment: Interpretive Data Ages < or = 9 years ??Acceptable: ? <75 mg/dL ??Borderline high: ??75-99 mg/dL ??High: ? >or= 100 mg/dL Ages 10 to 20 years ??Acceptable: ? <90 mg/dL ??Borderline high: ??90-129 mg/dL ??High: ? >or= 130 mg/dL Ages > or = 20 years ??Desirable: ?<150 mg/dL ??Borderline high: ??150-199 mg/dL ??High: ? 200-499 mg/dL ?Very high: ?? >or= 499 mg/dL Literature References: 1. Expert Panel on Integrated Guidelines for Cardiovascular Health and Risk Reduction in Children and Adolescents. Pediatrics 2011;128:S213 2. NCEP Expert Panel. Circulation 2004;110:227 Current Interpretive Data was last revised on 2018. HDL 20(L) >=40 mg/dL [facility] Comment: Interpretive Data Ages < or = 19 years ??Acceptable: ? >45 mg/dL ??Borderline low: ?? 40-45 mg/dL ??Low: ? <40 mg/dL Ages > or = 20 years ??Desirable: ?>or= 60 mg/dL ??Low: ? <40 mg/dL Literature References: 1. Expert Panel on Integrated Guidelines for Cardiovascular Health and Risk Reduction in Children and Adolescents. Pediatrics 2011;128:S213 2. NCEP Expert Panel. Circulation 2004;110:227 Current Interpretive Data was last revised on 2018. LDL, calculated 67 <=129 mg/dL [facility] Comment: Interpretive Data Ages < or = 19 years ??Acceptable: ? <110 mg/dL ??Borderline high: ??110-129 mg/dL ??High: ?>or= 130 mg/dL Ages > or = 20 years ??Optimal: ? <100 mg/dL ??Near optimal: ?100-129 mg/dL ??Borderline high: ?? 130-159 mg/dL ??High: ?>160 mg/dL Literature References: 1. Expert Panel on Integrated Guidelines for Cardiovascular Health and Risk Reduction in Children and Adolescents. Pediatrics 2011;128:S213 2. NCEP Expert Panel. Circulation 2004;110:227 Current Interpretive Data was last revised on 2018. Non-HDL Cholesterol 86 mg/dL [facility] Comment: Interpretive Data Ages < or = 19 years ??Acceptable: ?<120 mg/dL ??Borderline high: ??120-144 mg/dL ??High: ?>145 mg/dL Ages > or = 20 years ??When triglycerides are >200 mg/dL, Non-HDL cholesterol is a secondary target of ? therapy with treatment goals that are 30 mg/dL greater than the LDL cholesterol target. ? Literature References: 1. Expert Panel on Integrated Guidelines for Cardiovascular Health and Risk Reduction in Children and Adolescents. Pediatrics 2011;128:S213 2. NCEP Expert Panel. Circulation 2004;110:227 Current Interpretive Data was last revised on 2018. Chol/HDL ratio 5 NICOLASA BARNES Blood 03/06/2023 9:15 PM CDT 03/06/2023 9:36 PM CDT Carmen Monte MD LAB BLOOD ORDERABLES Final Result NICOLASA BARBIE [facility] Department [place] [address] from Last 3 Months or Most Recently Relevant to Health Maintenance Insurance [facility] Advance Directives For more information, please contact: [phone] * Full Code (Latest Code Status on File) Date Activated Date Inactivated Comments 03/06/2023 6:59 PM 03/25/2023 7:52 PM Care Teams Machine Stuffer Automatic Relationship Specialty Start Date End Date Mary Platt MD [address] [address] PCP - General Primary Therapist 02/17/24
--- OUTSIDE RECORDS SUMMARY | 2024-06-08 00:05 | XMS_ITS | Continuity of Care Document ---
Author Organization [facility], [facility] Podiat[facility] [place] [address] [address] [facility] [address] [place] [address] Assessment No assessment recorded. Plan of Treatment Reminders Order Date Submit Date Provider Last Modified By Organization Details Last Modified Time Details Appointments Any 15 025 07:30AM Jaron Ballard MD Not available Not available Not available Lab None record ed. Referral None record ed. Procedures None record ed. Surgeries None record ed. Imaging None record ed. Medication Orders None record ed. Patient TargetsNo targets recorded. Patient InstructionsNo instructions recorded. Reason for Referral None Reported. 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 487394973 Active 2023 MARKEL Giraldo null, [facility] 4 11:33:25 Obstructive sleep apnea syndrome 67435147 Active 2023 Jarno Ballard [facility] [address] [facility] [address], [address], [facility] 4 08:45:02 Periodic limb movement disorder 558209929 Active 2023 Jaron Ballard MD [address], [place], [address], [employer] [facility] 4 08:45:23 Anemia 288949912 Active 2023 Jaron Ballard MD [address] [facility] [address], [place], [address], [facility] 4 08:42:05 Diabetic peripheral neuropathy 833261906 Active 2023 MARKEL Giraldo null, [place] [employer] [facility] 4 11:20:54 Paronychia of toe of left foot 1001362399764 9100 Active 2023 MARKEL Giraldo null, [facility] [employer] 4 13:27:48 Ingrowing nail 506715343 Active 2023 Bro Clinton DPM [address], [address], [place], [address], [facility] 4 11:16:49 Ulcer of foot 19075439 Active 2023 Bro Clinton DPM [address], [address], [place], [address], [facility] [facility] [employer] 13:59:32 Notes:Medical History: Rhini tis Bruxism Delayed sleep phase syndrome Obesity with severe OSAHS, AHI = 30, 06/25/23, on CPAP c/o IVRC Mild TR Mild [place] Mild RVE Hypertension EF 60% Hyperlipidemia T2DM with neuropathy ALDO BPH Anemia Vit D deficiency Procedure History: T&A 1986 Scrotal abscess I& D 2022 Colonoscopy 2023 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 Procedures Surgical History Date Name Laterality Status Provider Name and Address Organization Details Recorded Time 4 Ulcer Care completed Bro Clinton DPM [address], [address], [place], [address], [email or web address] [facility] [employer] 04/26/2024 08:55:09 4 Callus Debridement 2-4 completed Bro Clinton DPM [address], [address], [place], [address], [email or web address] [facility] [employer] 03/28/2024 08:43:17 4 Ulcer Care completed Bro Clinton DPM [address], [place], [address], [facility] 03/28/2024 08:43:47 4 Ulcer Care completed Bro Clinton DPM [address], [place], [address], [facility] 03/13/2024 14:19:15 4 Ulcer Care completed Bro Clinton DPM [address], [place], [address], [facility] 03/03/2024 13:57:13 4 Ulcer Care completed Bro Clinton DPM [address], [place], [address], [facility] 02/26/2024 12:10:34 4 Callus Debridement 2-4 completed Bro Clinton DPM [address], [place], [address], [facility] 02/22/2024 08:45:49 4 Ulcer Care completed Bro Clinton DPM [address], [place], [address], [facility] 02/22/2024 08:45:43 4 Excision of ingrown toe nail left completed Bro Clinton DPM [address], [place], [address], [facility] 02/12/2024 11:16:39 4 Nail Debridement completed Bro Clinton DPM [address], [place], [address], [facility] 11/17/2023 11:47:55 4 Callus Debridement 2-4 completed Bro Clinton DPM [address], [place], [address], [facility] 11/17/2023 11:48:02 4 Nail Debridement completed Bro Clinton DPM [address], [place], [address], [facility] [employer] [facility] 09/15/2023 12:05:09 4 Total Nail Avulsion with Chemical Matrixectomy-Ri ght completed Bro Clinton DPM [address], [place], [address], [email or web address] [facility] [employer] [facility] 06/16/2023 13:02:06 Imaging Results None recorded. Procedure [...] Updated DateTime 4 190.5 cm 48.7 kg/m2 929995. 02 g 97 % 97 % 97.9 [degF] 78 /min MARKEL Giraldo [facility] [employer] 4 10:07:44 Social History Question Answer Notes LastModified by Organizat ion Details LastModified Time Tobacco Smoking Status Never Smoker MARKEL Giraldo [facility] [employer] 06/16/2023 12:06:03 What Is Your Level Of Caffeine Consumption? Occasional [email or web address] Information not available 10/26/2023 What Was The Date Of Your Most Recent Tobacco Screening? 03/25/2024 [email or web address] Information not available 03/25/2024 Sex: Unknown Functional Status None recorded. Mental Status None recorded. Family History Relationship Description Onset Age of this Age Resolved Age Notes LastModified by Organization Details LastModified Time Mother Diabetes mellitus [email or web address] Not available 2023 12:04:56 Mother Arthritis [email or web address] Not availab le 10/26/2023 08:21:46 Mother Hypertensive disorder [email or web address] Not available 2023 12:05:19 Father Arthritis [email or web address] Not availab le 10/26/2023 08:21:46 Medical History Condition Response DIABETES, TYPE Y HEADACHES/MIGRAINES Y OBESITY Y ANEMIA/BLOOD DISORDER Y DIZZINESS Y Past Encounters Encounter ID Performer Location Encounter Start Date Encounter Closed Date Diagnosis/Indication Diagnosis SNOMED-CT Code Diagnosis ICD10 Code [id number] Jaron Ballard MD [facility] [place] [address] [place] [address] 02/15/2024 08:18:11 02/16/2024 15:20:36 Obstructive sleep apnea syndrome 69736799 G47.33 Periodic l imb movement disorder 709613426 G47.61 D50.8 Anemia 499617618 D64.9 [id number] Bro Clinton DPM [facility] [place] [address] [place], [place] [address] 02/19/2024 08:34:18 02/22/2024 11:47:19 Paronychia of toe of left foot 8512046223 6714626 L03.032 Ingrowing nail 064637566 L60.0 [id number] Bro Clinton DPM [facility] [place] [address] [place] [address] 02/26/2024 11:24:03 02/26/2024 12:18:37 [id number] Bro Clinton DPM [facility] [place] [address] [place] [address] 03/02/2024 10:45:51 03/04/2024 10:48:32 Ulcer of foot 25887790 L97.141 [id number] Bro Clinton DPM [facility] [place] [address] [place] [address] 03/11/2024 09:49:31 04/02/2024 04:08:09 Health Concerns Section Related Observation LastModified by Organization Detai ls LastModified Time None Recorded Concern Status LastModified by Organization Details LastModified Time None Recorded Payers Encounter Date Sequence Insurance Name Policy Number Policy Jaffe Covered Member ID Jaffe Member ID Guarantor Name 03/11/2024 1 [facility] - DOS ON OR AFTER 20 (MEDICAID REPLACEMENT - HMO) Cristobal Duncandevin [id number] Rene Hyatt Notes Date Note Type Note Provider Name and Address Organization Details Recorded Time 03/11/2024 text/html Pt RTC for cont c/o ulcerations Lt hallux, dressed sterilely and LWC recommended for pt as well as OWB as much as poss. Bro Clinton DPM [address] [facility], [facility] [address], [place], [address], [facility] [employer] 03/13/2024 14:21:02
--- OUTSIDE RECORDS SUMMARY | 2024-06-08 00:05 | XMS_ITS | Referral Summary ---
Author Organization [facility] Address [address] [place] [id number] Care Team Providers Care Envelope Sealer Name Role Phone Mary Platt MD Primary Care Provider [phone] Encounters Date Type Department Care Team Description 05/12/2024 1:23 PM MOLD SETTER - 05/13/2024 4:10 PM MOLD SETTER Emergency [facility] ([place], [place]) Emergency Department [address] [place] [id number] Ruth Patel MD Moslener, MD Mariel Gibson, Ricky Ratliff, DO Cellulitis of left lower extremity (Primary Dx); Acute kidney injury (HCC); Sepsis, due to unspecified organism, unspecified whether acute organ dysfunction present (HCC) Discharge Disposition: Discharge to a short term hospital for IP from Last 3 Months Allergies No known active allergies Medications acetaminophen- [...] a day. 100 each 1 03/11/[address] (PROTONIX) 40 mg EC tabletIndicati ons:Stress Ulcer Prophylaxis Take 1 tablet (40 mg total) by mouth daily 30 tablet 1 03/26/20 Active glucagon (Baqsimi) 3 mg/actuation spray,non-aero rachid One spray into one nostril once as directed by provider for low blood sugar. 1 each 03/25/20 23 Active alcohol swabs (Alcohol Wipes) pads, medicated Use as directed. 100 each 03/25/20 23 Active acetaminophen (TYLENOL) 500 mg tablet Take 1 tablet (500 mg total) by mouth every 6 (six) hours as needed Active ferrous sulfate 325 mg (65 mg of elemental iron) tablet 06/02/20 23 Active furosemide (LASIX) 20 mg tablet Take [...] Change sensor every 10 days 10 each 02/17/20 24 Active pen needle, diabetic 32 gauge x 5/32 needleIndicati ons:Type 2 diabetes mellitus with hyperglycemia, [...] Discontinued traMADoL (ULTRAM) 50 mg tablet 03/02/20 024 Discontinued clotrimazole 1 % cream APPLY TO THE AFFECTED AND SURROUNDING AREAS OF SKIN BY TOPICAL ROUTE 2 TIMES PER DAY IN THE MORNING AND EVENING 02/03/20 024 Discontinued SSD 1 % cream APPLY A 1/16 INCH (1.5 MM) THICK LAYER TO ENTIRE BURN AREA BY TOPICAL ROUTE 2 TIMES PER DAY 02/09/20 24 024 Discontinued tirzepatide (Mounjaro) 2.5 mg/0.5 mL pen injectorIndica tions:Type 2 diabetes mellitus with hyperglycemia, with long-term current use of insulin (HCC) Inject 0.5 mL (2.5 mg total) under the skin every 7 days 2 mL 02/17/20 024 Discontinued Active Problems Problem Noted Date [...] 15 units DM eye exam Summer 2023 [facility] in [place]. Letter sent to get copy of report. [...] D level today. Verified that he uses [facility]. Aware to check results/results letter in [facility]. Will contact by phone if needed. Assessment & Plan (03/23/2023 6:31 PM CDT): Undetectable Vit D Level - continue vit d 50k international units twice weekly x 2 months and calcium supplementation for x3 months. 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 - Heel strike shoe is causing [...] Date Resolved Date Adjustment disorder 03/16/2023 03/25/20 23 Assessment & Plan (03/17/2023 12:01 PM CDT): [...] cultures - ID will continue to follow Immunizations Name Administration Dates Next Due Influenza, Quadrivalent, Spl it, Preservative Free, Intramuscular 03/11/2023 Social History Tobacco Use Types Packs/Day Years [...] materials from doctor or pharmacy Never 05/06/2023 [facility] Utilities Answer Date Recorded In the past 12 months has th e electric, gas, oil, or water company threatened to shut off services in your [...] often do you attend chur ch or taoist services? Never 03/31/2023 Do you belong to any clubs o r organizations such as sikh groups, unions, fraternal or athletic groups, or [...] place to sleep or slept in a senior living (including now)? Yes 03/31/2023 Personal Safety Answer Date Recorded Have you ever been in or are you currently in a harmful physical or emotional relationship or is someone making you feel afraid or unsafe? Denies 05/12/2024 Sex and Gender Information Value Date Recorded Sex Assigned at Not on file Legal Sex Male 7:12 PM MOLD SETTER Gender Identity Not on file Sexual Orientation Not on file Last Filed Vital Signs Vital Sign Reading Time Taken Comments Blood Pressure 147/63 05/13/2024 2:55 PM MOLD SETTER Pulse 94 05/13/2024 2:55 PM MOLD SETTER Temperature 37.1 ??C (98.8 ??F) 05/13/2024 2:55 PM CS T Respiratory Rate 23 05/13/2024 2:55 PM MOLD SETTER Oxygen Saturation 96% 05/13/2024 2:55 PM MOLD SETTER Inhaled Oxygen Concentration - - Weight 188 kg (414 lb 7.4 oz) 05/12/2024 1:27 PM MOLD SETTER Height 198.1 cm (6' 6 ) 05/12/2024 1:27 PM MOLD SETTER Body Mass Index 47.9 05/12/2024 1:27 PM MOLD SETTER Plan of Treatment Not on file Procedures Procedure Name Priority Date/Time Associated Diagnosis Comments POCT GLUCOSE DEVICE Routine 05/13/2024 8 :31 AM MOLD SETTER POCT GLUCOSE DEVICE Routine 05/12/2024 7 :52 PM MOLD SETTER CRP (ACUTE PHASE) STAT 05/12/2024 2:5 8 PM MOLD SETTER EGFR STAT 05/12/2024 2:58 PM MOLD SETTER COMPREHENSIVE METABOLIC PANEL STAT 05/12/2024 2:58 PM MOLD SETTER XR FOOT LEFT 3 OR MORE VIEWS ED 05/12/2024 1:58 PM MOLD SETTER BLOOD CULTURE STAT 05/12/2024 1:42 PM MOLD SETTER BLOOD CULTURE STAT 05/12/2024 1:42 PM MOLD SETTER DIFFERENTIAL AUTO STAT 05/12/2024 1:3 4 PM MOLD SETTER SEPSIS LACTATE WITH REFLEX STAT 05/12/2024 1:34 PM MOLD SETTER CBC WITH AUTO DIFFERENTIAL STAT 05/12/2024 1:34 PM MOLD SETTER POCT HEMOGLOBIN A1C Routine 02/17/2024 2 :56 PM CDT Type 2 diabetes mellitus with hyperglycemia, with long-term current use of insulin (HCC) DIABETES EYE EXAM Routine 10/13/2023 8:15 AM CDT ALBUMIN CREATININE RATIO, URINE Routine 03/16/2023 4:21 PM CDT LIPID PANEL STAT 03/06/2023 9:15 PM CDT from Last 3 Months or Most Recently Relevant to Health Maintenance Results * (ABNORMAL) POCT glucose (05/13/2024 8:31 AM MOLD SETTER) [facility] Signature Glucose, POC 202(H) 70 - 199 mg/dL Comment:Testing performed by : [facility], [address] [place] [address]., [id number] Glucose comment 1 Use This Result NICOLASA SANTILLAN Comment:Testing performed by : [facility], [address] [place] [address]., [address] Blood 05/13/2024 8:31 AM MOLD SETTER 05/13/2024 8:31 AM MOLD SETTER us Ancelmo Conroy MD LAB POCT ORDERABLES - DEVICE Final Result Performing Organization Address [facility]/ZIP Co de Phone Number NICOLASA [facility] [place] [address] * POCT glucose (05/12/2024 7:52 PM MOLD SETTER) Glucose, POC 188 70 - 199 mg/dL Comment:Testing performed by : [facility], [address] [place] [address]., [address] Blood 05/12/2024 7:52 PM MOLD SETTER 05/12/2024 7:52 PM MOLD SETTER Ruth Patel MD LAB POCT ORDERABLES - DEVICE Fi nal Result Performing Organization Address [facility] Co de Phone Number NICOLASA [facility] [place] [address] * eGFR (05/12/2024 2:58 PM MOLD SETTER) eGFR 64 >=60 mL/min/1. 73 m2 Comment: [...] was last reviewed 2021. Testing performed by: [address] [address] Blood 05/12/2024 2:58 PM MOLD SETTER 05/12/2024 3:03 PM MOLD SETTER [facility] Jorge GALVAN LAB BLOOD ORDERABLES Final Resu lt Performing Organization Address [facility] Co de Phone Number [address] [address] * (ABNORMAL) CRP (acute phase) (05/12/2024 2:58 PM MOLD SETTER) CRP 270.4(H) <=10.0 mg/L Comment:Testing performed by : [address] [address] Blood 05/12/2024 2:58 PM MOLD SETTER 05/12/2024 3:03 PM MOLD SETTER [facility] Jorge GALVAN LAB BLOOD ORDERABLES Final Resu lt Performing Organization Address [facility] Co de Phone Number [address] [address] * (ABNORMAL) Comprehensive metabolic panel (05/12/2024 2:58 PM MOLD SETTER) Sodium 131(L) 135 - 145 mmol/L Comment:Testing performed by : [address] [address] Potassium, pl 4.0 3.3 - 4.9 mmol/L NICOLASA Comment:Testing performed by : [address] [address] Chloride 97 97 - 110 mmol/L NICOLASA Comment:Testing performed by : [address] [address] CO2 20(L) 22 - 32 mmol/L NICOLASA Comment:Testing performed by : [address] [address] Anion gap 14 2 - 15 mmol/L NICOLASA Comment:Testing performed by : [address] [address] BUN 35(H) 6 - 25 mg/dL NICOLASA Comment:Testing performed by : [address] [address] Creatinine 1.40(H) 0.80 - 1.30 mg/dL NICOLASA Comment:Testing performed by : [address] [address] Glucose 207(H) 70 - 199 mg/dL NICOLASA [...] classification and Diagnosis of Diabetes Diabetes Care 2021; 46: S19-S40. Current interpretive data was last revised 2022. Testing performed by: [address] [address] Calcium 8.1(L) 8.5 - 10.3 mg/dL NICOLASA Comment:Testing performed by : [address] [address] Bilirubin, total 0.5 0.1 - 1.2 mg/dL NICOLASA Comment:Testing performed by : [address] [address] Protein, pl 6.1(L) 6.5 - 8.5 g/dL NICOLASA Comment:Testing performed by : [address] [address] Albumin 2.3(L) 3.5 - 5.0 g/dL NICOLASA Comment:Testing performed by : [address] [address] Alk phos 143(H) 40 - 130 Units/L NICOLASA SANTILLAN Comment:Testing performed by : [facility], [address] [place] [address]., [address] ALT 17 7 - 55 Units/L NICOLASA SANTILLAN Comment:Testing performed by : [facility], [address] [place] [address]., [address] AST 22 10 - 50 Units/L NICOLASA SANTILLAN Comment:Testing performed by : [address] [address] Blood 05/12/2024 2:58 PM MOLD SETTER 05/12/2024 3:03 PM MOLD SETTER [facility] Jorge GALVAN LAB BLOOD ORDERABLES Final Resu lt NICOLASA SANTILLAN [address] [facility] Department [place] [address] * XR Foot Left 3 or More Views (05/12/2024 1:58 PM MOLD SETTER) Anatomical Region Laterality Modality Lower Extremities, Foot Left Computed Radiography 05/12/2024 2:45 PM MOLD SETTER Narrative 05/12/2024 2:51 PM MOLD SETTER EXAM DESCRIPTION: XR FOOT LEFT 3 OR [...] PM T: ??05/12/2024 2:51 PM Report ID: [id number] Reading Location: [id number] Procedure Note Drew Moore MD - 05/12/2024 [...] Electronically signed by Drew Moore M.D. KR: NO Report ID: [id number] Reading Location: [id number] [facility] Jorge GALVAN IMG XR PROCEDURES Final Result * Blood culture Blood Peripheral (05/12/2024 1:42 PM MOLD SETTER) Report Final Report: No growth Comment:Testing performed by : [facility], [address] [facility], [place]., [address] Blood (Peripheral) 05/12/2024 1:42 PM MOLD SETTER 05/12/2024 5:28 PM MOLD SETTER Narrative NICOLASA - 05/17/2024 7:00 AM MOLD SETTER From a different site than #1. Draw [...] performance characteristics have been verified by the [facility] Microbiology Laboratory. For questions about this culture, contact the Microbiology Laboratory at [phone]. Interpretive data was last revised on 24. [facility] LAB [facility]CROBIOLOGY - [facility] MELIDA COLLINS Final Result NICOLASA [address] [facility] Department [place] [address] * Blood culture Blood Peripheral (05/12/2024 1:42 PM MOLD SETTER) Report Final Report: No growth Comment:Testing performed by : [facility], [address] [place]., [address] Blood (Peripheral) 05/12/2024 1:42 PM MOLD SETTER 05/12/2024 5:28 PM MOLD SETTER Narrative NICOLASA [facility] 05/17/2024 7:00 AM MOLD SETTER Draw Blood cultures before administration of Antibiotics [...] performance characteristics have been verified by the [facility]biology Laboratory. For questions about this culture, contact the Microbiology Laboratory at [phone]. Interpretive data was last revised on 24. Ruth Patel MD LAB MICROBIOLOGY - [facility] [place] Final Result Performing Organization Address City/[facility] Co de Phone Number NICOLASA [address] [facility] [employer] [place] [address] * Sepsis Lactate w/ Reflex (05/12/2024 1:34 PM MOLD SETTER) Pathologist [facility] Sepsis Lactate 2.0 0.7 - 2.0 mmol/L Comment:Testing performed by : [address] [address] Blood 05/12/2024 1:34 PM MOLD SETTER 05/12/2024 1:43 PM MOLD SETTER [facility] Jorge GALVAN LAB BLOOD ORDERABLES Final Resu lt Performing Organization Address [facility] Co de Phone Number NICOLASA [address] [facility] Department [employer] [place] [address] * (ABNORMAL) Differential, auto (05/12/2024 1:34 PM MOLD SETTER) Pathologist [facility] Neutrophil abs 20.7(H) 1.5 - 6.5 K/cumm Comment:Testing performed by : [address] [address] Imm gran abs 0.5(H) 0.0 - 0.1 K/cumm NICOLASA Comment:Testing performed by : [address] [address] Lymphocyte abs 1.7 0.8 - 3.3 K/cumm [facility] Comment:Testing performed by : [address], [place]., [address] Monocyte abs 1.9(H) 0.2 - 0.8 K/cumm [facility] Comment:Testing performed by : [address], [place]., [address] Eosinophil abs 0.0 0.0 - 0.5 K/cumm [facility] Comment:Testing performed by : [address], [place]., [address] Basophil abs 0.1 0.0 - 0.1 K/cumm [facility] Comment:Testing performed by : [address] [address] Neutrophil pct 83.4 % [facility] Comment: Interpretive Data Percent cell count reference ranges are not reported, since discordance with absolute values may lead to misinterpretation of CBC data. Current Interpretive Data was last revised on 2017. Testing performed by: [address] [address] Imm gran pct 2.1 % [facility] Comment: Interpretive Data Percent cell count reference ranges are not reported, since discordance with absolute values may lead to misinterpretation of CBC data. Current Interpretive Data was last revised on 2017. Testing performed by: [address] [address] Lymphocyte pct 6.6 % [facility] Comment: Interpretive Data Percent cell count reference ranges are not reported, since discordance with absolute values may lead to misinterpretation of CBC data. Current Interpretive Data was last revised on 2017. Testing performed by: [address] [address] Monocyte pct 7.4 % [facility] Comment: Interpretive Data Percent cell count reference ranges are not reported, since discordance with absolute values may lead to misinterpretation of CBC data. Current Interpretive Data was last revised on 2017. Testing performed by: [address] [address] Eosinophil pct 0.2 % [facility] Comment: Interpretive Data Percent cell count reference ranges are not reported, since discordance with absolute values may lead to misinterpretation of CBC data. Current Interpretive Data was last revised on 2017. Testing performed by: [address] [address] Basophil pct 0.3 % NICOLASA SANTILLAN Comment: Interpretive Data Percent cell count reference ranges are not reported, since discordance with absolute values may lead to misinterpretation of CBC data. Current Interpretive Data was last revised on 2017. Testing performed by: [address] [address] Blood 05/12/2024 1:34 PM MOLD SETTER 05/12/2024 1:43 PM MOLD SETTER [facility] Jorge GALVAN LAB BLOOD ORDERABLES Final Resu lt NICOLASA [facility] Department [place] [address] * (ABNORMAL) CBC with auto differential (05/12/2024 1:34 PM MOLD SETTER) WBC 24.9(H) 3.8 - 9.9 K/cumm Comment:Testing performed by : [address] [address] Hgb 9.4(L) 13.0 - 17.5 g/dL NICOLASA SANTILLAN Comment:Testing performed by : [address] [address] Hct 27.9(L) 38.9 - 50.3 % NICOLASA SANTILLAN Comment:Testing performed by : [address] [address] Plt 336 150 - 400 K/cumm NICOLASA SANTILLAN Comment:Testing performed by : [address] [address] MPV 10.0 9.1 - 12.3 fL NICOLASA SANTILLAN Comment:Testing performed by : [address] [address] RBC 3.26(L) 4.30 - 5.80 M/cumm NICOLASA SANTILLAN Comment:Testing performed by : [address] [address] MCV 85.6 81.3 - 96.4 fL NICOLASA SANTILLAN Comment:Testing performed by : [address] [address] MCH 28.8 27.1 - 33.3 pg NICOLASA SANTILLAN Comment:Testing performed by : [address] [address] MCHC 33.7 32.3 - 35.7 g/dL NICOLASA SANTILLAN Comment:Testing performed by : [address], [address] RDW CV 13.5 11.1 - 14.9 % NICOLASA SANTILLAN Comment:Testing performed by : [address], [address] RDW SD 42.4 35.7 - 48.1 fL NICOLASA SANTILLAN Comment:Testing performed by : [address] [address] NRBC abs 0.00 0.00 - 0.01 K/cumm NICOLASA Comment:Testing performed by : [address], [address] Blood 05/12/2024 1:34 PM MOLD SETTER 05/12/2024 1:43 PM MOLD SETTER [facility] Jorge GALVAN LAB BLOOD ORDERABLES Final Resu lt NICOLASA [address] [facility] Department of Laboratories [place], [place] [id number] * (ABNORMAL) POCT hemoglobin A1c (02/17/2024 2:56 PM CDT) Hemoglobin A1C, POC 7.8 4.0 - 5.6 % Blood 02/17/2024 2:56 PM CDT Natividad Mckeon ASSISTANT ATTORNEY GENERAL POINT OF CARE TEST ORDERA BLES Final Result * DIABETES EYE EXAM (10/13/2023 8:15 AM CDT) Historical Provider [facility] Edited Result - Final * (ABNORMAL) Albumin Creatinine Ratio, Urine (03/16/2023 4:21 PM CDT) Albumin Ur 39.3 mg/L [facility] Comment: Interpretive Data No reference range established. Current interpretive data was last revised 2018. Creatinine Ur 88.9 mg/dL NICOLASA [facility] Comment: Interpretive Data No reference range established. Current interpretive data was last revised 2018. Albumin Creatinine Ratio, Ur 44(H) 1 - 29 mg/g NICOLASA [facility] Urine 03/16/2023 4:21 PM CDT 03/16/2023 6:01 PM CDT Luis Daniel Hanna NP LAB URINE ORDERABLES Fin al Result [facility] Department [place] [address] * (ABNORMAL) Lipid panel (03/06/2023 9:15 PM CDT) Cholesterol 106 30 - 199 mg/dL [facility] Comment: Interpretive Data Ages < or = [...] on 2018. Triglycerides 93 <=149 mg/dL NICOLASA [facility] Comment: Interpretive Data Ages < or [...] revised on 2018. HDL 20(L) >=40 mg/dL [facility] Comment: Interpretive Data Ages < or [...] on 2018. LDL, calculated 67 <=129 mg/dL [facility] Comment: Interpretive Data Ages < or = [...] revised on 2018. Non-HDL Cholesterol 86 mg/dL NICOLASA [facility] Comment: Interpretive Data Ages < or [...] last revised on 2018. Chol/HDL ratio 5 [facility] Blood 03/06/2023 9:15 PM CDT 03/06/2023 9:36 PM CDT Carmen Monte MD LAB BLOOD ORDERABLES Final Result [facility] [place] [address] from Last 3 Months or Most Recently Relevant to Health Maintenance Insurance [facility] Advance Directives For more information, please contact: [phone] * Full Code (Latest Code Status on File) Date Activated Date Inactivated Comments 03/06/2023 6:59 PM 03/25/2023 7:52 PM Care Teams Envelope Sealer Relationship Specialty Start Date End Date Mary Platt MD [address] [id number] PCP - General Grain Elevator Superintendent 02/17/24
--- OUTSIDE RECORDS SUMMARY | 2024-06-08 00:05 | XMS_ITS | Continuity of Care Document ---
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 714866908 Active 2023 MARKEL Giraldo null, [employer] 4 11:33:25 Obstructive sleep apnea syndrome 51256023 Active 2023 Jaron Ballard MD [address] [facility], [place] [address], [place], [address], [employer] 4 08:45:02 Periodic limb movement disorder 205508074 Active 2023 Jaron Ballard MD [address] [facility], [facility] [address], [place], [address], [employer] 4 08:45:23 Anemia 363246976 Active 2023 Jaron Ballard MD [address], [address], [place], [address], [employer] 4 08:42:05 Diabetic peripheral neuropathy 948059833 Active 2023 MARKEL Giraldo null, [employer] [facility] [employer] 4 11:20:54 Paronychia of toe of left foot 2194036872118 9100 Active 2023 MARKEL Giraldo null, [employer] 4 13:27:48 Ingrowing nail 449080941 Active 2023 Bro Clinton DPM [address], [employer], [place], [address], [employer] 4 11:16:49 Ulcer of foot 55130197 Active 2023 Bro Clinton DPM [address], [employer], [place], [address], [employer] 4 13:59:32 Notes:Medical History: Rhini tis Bruxism [...] Ulcer Care completed Bro Clinton DPM [address], [employer], [place], [address], [employer] 04/26/2024 08:55:09 4 Callus Debridement 2-4 completed Bro Clinton DPM [address], [employer], [place], [address], [facility] 03/28/2024 08:43:17 4 Ulcer Care completed Bro Clinton DPM [address], [address], [place], [address], [facility] 03/28/2024 08:43:47 4 Ulcer Care completed Bro Clinton DPM [address], [address], [place], [address], [facility] 03/13/2024 14:19:15 4 Ulcer Care completed Bro Clinton DPM [address], [address], [place], [address], [facility] 03/03/2024 13:57:13 4 Ulcer Care completed Bro Clinton DPM [address], [address], [place], [address], [facility] 02/26/2024 12:10:34 4 Callus Debridement 2-4 completed Bro Clinton DPM [address], [address], [place], [address], [facility] [employer] [facility] [employer] [facility] 02/22/2024 08:45:49 4 Ulcer Care completed Bro Clinton DPM [address], [address], [place], [address], [facility] [employer] [facility] 02/22/2024 08:45:43 4 Excision of ingrown toe nail left completed Bro Clinton DPM [address], [address], [place], [address], [facility] 02/12/2024 11:16:39 4 Nail Debridement completed Bro Clinton DPM [address], [address], [place], [address], [facility] [employer] [facility] 11/17/2023 11:47:55 4 Callus Debridement 2-[address], [address], [place], [address], [employer] [facility] 11/17/2023 11:48:02 4 Nail Debridement completed Bro Clinton DPM [address], [address], [place], [address], [employer] [facility] [employer] [facility] 09/15/2023 12:05:09 4 Total Nail Avulsion with Chemical Matrixectomy-Ri ght completed Bro Clinton DPM [address] [facility], [address], [place], [address], [employer] [facility] [employer] 06/16/2023 13:02:06 Imaging Results None recorded. Procedure [...] Updated DateTime 03/02/2024 190.5 cm 48.7 kg/m2 033448.02 g MARKEL Giraldo [employer] 03/02/2024 10:58:34 Social History Question Answer Notes LastModified by Organizat ion Details LastModified Time Tobacco Smoking Status Never Smoker MARKEL Giraldo null, [employer] 06/16/2023 12:06:03 What Is Your Level Of Caffeine Consumption? Occasional [email or web address] Information not available 10/26/2023 What Was The Date Of Your Most Recent Tobacco Screening? 03/25/2024 [email or web address] Information not available 03/25/2024 Sex: Unknown Functional Status None recorded. Mental Status None recorded. Family History Relationship Description Onset Age of this Age Resolved Age Notes LastModified by Organization Details LastModified Time Mother Diabetes mellitus [email or web address] Not available 2023 12:04:56 Mother Arthritis [email or web address] Not availab le 10/26/2023 08:21:46 Mother Hypertensive disorder [email or web address] Not available 2023 12:05:19 Father Arthritis [email or web address] Not availab le 10/26/2023 08:21:46 Medical History Condition Response DIABETES, TYPE Y HEADACHES/MIGRAINES Y DIZZINESS Y OBESITY Y ANEMIA/BLOOD DISORDER Y Past Encounters Encounter ID Performer Location Encounter Start Date Encounter Closed Date Diagnosis/Indication Diagnosis SNOMED-CT Code Diagnosis ICD10 Code [id number] Bro Clinton DPM [facility] [place] [address] [place] [address] 1 02/09/2024 13:12:41 03/07/2024 16:26:18 Paronychia of toe of left foot 7242894850 4117269 L03.032 Pain in left foot 598533 6521 06550 M79.672 Ingrowing nail 287747793 L60.0 [id number] Jaron Ballard MD S[facility] [place] [address] [place] [address] 02/15/2024 08:18:11 02/16/2024 15:20:36 Obstructive sleep apnea syndrome 07590928 G47.33 Periodic l imb movement disorder 922141164 G47.61 D50.8 Anemia 632711828 D64.9 [id number] Bro Clinton DPM [facility] [place] [address] [place], [place] [address] 1 02/19/2024 08:34:18 02/22/2024 11:47:19 Paronychia of toe of left foot 7811116188 6471937 L03.032 Ingrowing nail 136117658 L60.0 [id number] Bro Clinton DPM [facility] [place] [address] [place] [address] 1 02/26/2024 11:24:03 02/26/2024 12:18:37 [id number] Bro Clinton DPM [facility] Podiatry [facility] [address] [facility], [facility] 25 [place] [address] 03/02/2024 10:45:51 03/04/2024 10:48:32 Ulcer of foot 30266911 L97.901 Health Concerns Section Related Observation LastModified by Organization Detai ls LastModified Time None Recorded Concern Status LastModified by Organization Details LastModified Time None Recorded Payers Encounter Date Sequence Insurance Name Policy Number Policy Jaffe Covered Member ID Jaffe Member ID Guarantor Name 03/02/2024 1 [facility] - DOS ON OR AFTER 20 (MEDICAID REPLACEMENT - HMO) Cristobal Hyatt [id number] Rene Hyatt Notes Date Note Type Note Provider Name and Address Organization Details Recorded Time 03/02/2024 text/html PT RTC for c/o ulceration, Lt hallux, extending to nail and underneath, pus emanating alfredo-ungually. Mild redness and warmth, no malodor or evidence of bone infection. Bro Clinton DPM [address], [facility] [address], [place], [address], [place] [facility] 03/03/2024 13:59:38
--- OUTSIDE RECORDS SUMMARY | 2024-06-08 00:05 | XMS_ITS | Continuity of Care Document ---
Author Organization [employer], [facility]_GMG Podiatry [place] [address] [address] [address] Assessment No assessment recorded. Plan of Treatment [...] By Organization Details Last Modified Time 04/25/2024 [id number] Pt is instructed to remain OWB as much as possible for pressure relief and to abet healing of heel ulcer. [email or web address] Not available 04/26/2024 08:56:05 Reason for Referral None Reported. 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 649217307 Active 2023 MARKEL Giraldo null, [employer] 4 11:33:25 Obstructive sleep apnea syndrome 01563259 Active 2023 Jaron Ballard MD [address] [facility], [facility] [address], [place], [address], [employer] 4 08:45:02 Periodic limb movement disorder 979788015 Active 2023 Jaron Ballard MD [address] [facility], [address], [place], [address], [employer] 4 08:45:23 Anemia 068662420 Active 2023 Jaron Ballard MD [address], [employer], [place], [address], [employer] 4 08:42:05 Diabetic peripheral neuropathy 264505487 Active 2023 Aaron Liuroe MARKEL null, [employer] 4 11:20:54 Paronychia of toe of left foot 3776648695058 9100 Active 2023 Aaron Liuroe MARKEL null, [employer] 4 13:27:48 Ingrowing nail 157904795 Active 2023 Bro Clinton DPM [address] [employer], [employer], [place], [address], [employer] 4 11:16:49 Ulcer of foot 48889771 Active 2023 Bro Clinton DPM [address], [employer], [place], [address], [employer] 4 13:59:32 Notes:Medical History: Rhini tis Bruxism Delayed sleep phase syndrome Obesity with severe OSAHS, AHI = 30, 06/25/23, on CPAP c/o IVRC Mild TR Mild CO Mild RVE Hypertension EF 60% Hyperlipidemia T2DM [...] Ulcer Care completed Bro Clinton DPM [address], [employer], [place], [address], [employer] 04/26/2024 08:55:09 4 Callus Debridement 2-4 completed Bro Clinton DPM [address], [employer], [place], [address], [facility] 03/28/2024 08:43:17 4 Ulcer Care completed Bro Clinton DPM [address], [address], [place], [address], [facility] 03/28/2024 08:43:47 4 Ulcer Care completed Bro Clinton DPM [address], [address], [place], [address], [facility] 03/13/2024 14:19:15 4 Ulcer Care completed Bro Clinton DPM [address], [address], [place], [address], [facility] 03/03/2024 13:57:13 4 Ulcer Care completed Bro Clinton DPM [address], [address], [place], [address], [facility] 02/26/2024 12:10:34 4 Callus Debridement 2-4 completed Bro Clinton DPM [address], [address], [place], [address], [facility] 02/22/2024 08:45:49 4 Ulcer Care completed Bro Clinton DPM [address], [address], [place], [address], [facility] 02/22/2024 08:45:43 4 Excision of ingrown toe nail left completed Bro Clinton DPM [address], [address], [place], [address], [facility] 02/12/2024 11:16:39 4 Nail Debridement completed Bro Clinton DPM [address], [address], [place], [address], [facility] 11/17/2023 11:47:55 4 Callus Debridement 2-4 completed Bro Clinton DPM [address], [address], [place], [address], [employer] [facility] [employer] [facility] 11/17/2023 11:48:02 4 Nail Debridement completed Bro Clinton DPM [address], [address], [place], [address], [facility] [employer] [facility] [employer] [facility] 09/15/2023 12:05:09 4 Total Nail Avulsion with Chemical Matrixectomy-Ri ght completed Bro Clinton DPM [address] [facility], [address], [place], [address], [employer] [facility] [employer] [facility] 06/16/2023 13:02:06 Imaging Results None recorded. Procedure [...] Updated DateTime 4 190.5 cm 48.5 kg/m2 372908. 84 g 98 % 98 % 98.2 [degF] 86 /min MARKEL Giraldo [employer] 4 16:02:10 Social History Question Answer Notes LastModified by Organizat ion Details LastModified Time Tobacco Smoking Status Never Smoker MARKEL Giraldo [employer] 06/16/2023 12:06:03 What Is Your Level Of Caffeine Consumption? Occasional Information not available 10/26/2023 What Was The Date Of Your Most Recent Tobacco Screening? 03/25/2024 Information not available 03/25/2024 Sex: Unknown Functional Status None recorded. Mental Status None recorded. Family History Relationship Description Onset Age of this Age Resolved Age Notes LastModified by Organization Details LastModified Time Mother Diabetes mellitus [email or web address] Not available 2023 12:04:56 Mother Arthritis [email or web address] Not availab le 10/26/2023 08:21:46 Mother Hypertensive disorder [email or web address] Not available 2023 12:05:19 Father Arthritis [email or web address] Not availab le 10/26/2023 08:21:46 Medical History Condition Response OBESITY Y DIABETES, TYPE Y HEADACHES/MIGRAINES Y DIZZINESS Y ANEMIA/BLOOD DISORDER Y Past Encounters Encounter ID Performer Location Encounter Start Date Encounter Closed Date Diagnosis/Indication Diagnosis SNOMED-CT Code Diagnosis ICD10 Code [id number] Bro Clinton DPM [facility] [place] [address] [address] 03/25/2024 10:22:24 03/28/2024 16:20:38 [id number] Bro Clinton DPM [facility] [place] [address] [address] 04/25/2024 15:53:24 04/26/2024 14:10:52 Health Concerns Section Related Observation LastModified by Organization Detai ls LastModified Time None Recorded Concern Status LastModified by Organization Details LastModified Time None Recorded Payers Encounter Date Sequence Insurance Name Policy Number Policy Jaffe Covered Member ID Jaffe Member ID Guarantor Name 04/25/2024 1 [facility] ON OR AFTER 12/06/20 (MEDICAID REPLACEMENT - HMO) Cristobal Hyatt [id number] Rene Hyatt Notes Date Note Type Note Provider Name and Address Organization Details Recorded Time 04/25/2024 text/html Pt c/o painful lesion and bleeding, Lt heel. Lesion measure 2.0 cm aicha and deep w/ red beefy interior and hyperkeratotic border, copious. No evidence of infection. Bro Clinton DPM [address] [facility], [address], [place], [address], [facility] 04/26/2024 08:56:08
--- OUTSIDE RECORDS SUMMARY | 2024-06-08 00:05 | XMS_ITS | Continuity of Care Document ---
Author Organization [employer], [facility]G Podiatry [place] [address] Address [address] [facility] 25 [place] [address] Assessment No assessment recorded. 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 175456097 Active 2023 MARKEL Giraldo null, [employer] 4 11:33:25 Obstructive sleep apnea syndrome 64221706 Active 2023 Jaron Ballard MD [address] [facility] [address], [address], [employer] 4 08:45:02 Periodic limb movement disorder 211624106 Active 2023 Jaron Ballard MD [address], [place], [address], [employer] 4 08:45:23 Anemia 025162979 Active 2023 Jaron Ballard MD [address] [facility] [address], [place], [address], [employer] 4 08:42:05 Diabetic peripheral neuropathy 448407109 Active 2023 MARKEL Giraldo null, [place] [employer] [facility] [employer] 4 11:20:54 Paronychia of toe of left foot 6697879502399 9100 Active 2023 MARKEL Giraldo null, [facility] [employer] 4 13:27:48 Ingrowing nail 276252055 Active 2023 Bro Clinton DPM [address], [address], [place], [address], [employer] 4 11:16:49 Ulcer of foot 54771693 Active 2023 Bro Clinton DPM [address], [address], [place], [address], [employer] 13:59:32 Notes:Medical History: Rhini tis Bruxism Delayed sleep phase syndrome Obesity with severe OSAHS, AHI = 30, 06/25/23, on CPAP c/o IVRC Mild TR Mild SC Mild RVE Hypertension EF 60% Hyperlipidemia T2DM [...] Clinton DPM [address], [address], [place], [address], [employer] [facility] [employer] 04/26/2024 08:55:09 4 Callus Debridement 2-4 completed Bro Clinton DPM [address], [address], [place], [address], [employer] [facility] [employer] 03/28/2024 08:43:17 4 Ulcer Care completed Bro Clinton DPM [address], [address], [place], [address], [facility] 03/28/2024 08:43:47 4 Ulcer Care completed Bro Clinton DPM [address], [address], [place], [address], [facility] 03/13/2024 14:19:15 4 Ulcer Care completed Bro Clinton DPM [address], [address], [place], [address], [facility] 03/03/2024 13:57:13 4 Ulcer Care completed Bro Clinton DPM [address], [address], [place], [address], [facility] 02/26/2024 12:10:34 4 Callus Debridement 2-4 completed Bro Clinton DPM [address], [address], [place], [address], [facility] 02/22/2024 08:45:49 4 Ulcer Care completed Bro Clinton DPM [address], [address], [place], [address], [facility] 02/22/2024 08:45:43 4 Excision of ingrown toe nail left completed Bro Clinton DPM [address], [address], [place], [address], [facility] 02/12/2024 11:16:39 4 Nail Debridement completed Bro Clinton DPM [address], [address], [place], [address], [facility] 11/17/2023 11:47:55 4 Callus Debridement 2-4 completed Bro Clinton DPM [address], [address], [place], [address], [facility] 11/17/2023 11:48:02 4 Nail Debridement completed Bro Clinton DPM [address], [address], [place], [address], [facility] [employer] [facility] 09/15/2023 12:05:09 4 Total Nail Avulsion with Chemical Matrixectomy-Ri ght completed Bro Clinton DPM [address], [address], [place], [address], [employer] [facility] [employer] [facility] 06/16/2023 13:02:06 Imaging Results None recorded. [...] Updated DateTime 4 190.5 cm 48.7 kg/m2 763723. 02 g 97 % 97 % 98.4 [degF] 80 /min MARKEL Giraldo [facility] [employer] 4 10:28:33 Social History Question Answer Notes LastModified by Organizat ion Details LastModified Time Tobacco Smoking Status Never Smoker MARKEL Giraldo [facility] [employer] 06/16/2023 12:06:03 What Is Your Level Of Caffeine Consumption? Occasional [email or web address] Information not available 10/26/2023 What Was The Date Of Your Most Recent Tobacco Screening? 03/25/2024 Information not available 03/25/2024 Sex: Unknown Functional Status None recorded. Mental Status None recorded. Family History Relationship Description Onset Age of this Age Resolved Age Notes LastModified by Organization Details LastModified Time Mother Diabetes mellitus [email or web address] Not available 2023 12:04:56 Mother Arthritis [email or web address] Not availab le 10/26/2023 08:21:46 Mother Hypertensive disorder [email or web address] Not available 2023 12:05:19 Father Arthritis [email or web address] Not availab le 10/26/2023 08:21:46 Medical History Condition Response OBESITY Y DIABETES, TYPE Y HEADACHES/MIGRAINES Y DIZZINESS Y ANEMIA/BLOOD DISORDER Y Past Encounters Encounter ID Performer Location Encounter Start Date Encounter Closed Date Diagnosis/Indication Diagnosis SNOMED-CT Code Diagnosis ICD10 Code [id number] Bro Clinton DPM [facility] [place] [address] [place], [place] [id number] 02/26/2024 11:24:03 02/26/2024 12:18:37 [id number] Bro Clinton DPM [facility] [place] [address] [address] 03/02/2024 10:45:51 03/04/2024 10:48:32 Ulcer of foot 74398748 L97.985 [id number] Bro Clinton DPM [facility] [place] [address] [place] [address] 03/11/2024 09:49:31 04/02/2024 04:08:09 [id number] Bro Clinton DPM [facility] [place] [address] [place] [address] 03/25/2024 10:22:24 03/28/2024 16:20:38 Health Concerns Section Related Observation LastModified by Organization Deta[employer] ls LastModified Time None Recorded Concern Status LastModified by Organization Details LastModified Time None Recorded Payers Encounter Date Sequence Insurance Name Policy Number Policy Jaffe Covered Member ID Jaffe Member ID Guarantor Name 03/25/2024 1 [facility] ON OR AFTER 12/06/20 (MEDICAID REPLACEMENT - HMO) Cristobal Hyatt [id number] Rene Hyatt Notes Date Note Type Note Provider Name and Address Organization Details Recorded Time 03/25/2024 text/html Pt RTC for c/o calluses both feet and open ulcer, Lt hallux Bro Kachigian, [employer] [address], [facility] [address], [place], [address], [place] [facility] 03/28/2024 08:43:55
--- OUTSIDE RECORDS SUMMARY | 2024-06-08 00:06 | XMS_ITS | Encounter Summary ---
Author Organization [facility] Healthcare Address [address] [place] [address] Care Team Providers Care Hospital Laboratory Technician Name Role Phone Nguyễn Bingham MD Primary Care Provider [phone] Reason for Visit * Reason Onset Date Comments signed request for medical records 11/16/2023 Encounter Details Date Type Department Care Team ([facility] Contact Info) Description 11/16/2023 Telephone [facility] Medical Group Diabetes and Endocrinology [address] [place] [address] [place] [address] [facility] [address] [place], [place] [id number] signed request for medical records Social History Tobacco Use Types Packs/Day Years [...] materials from doctor or pharmacy Never 05/06/2023 [facility] Utilities Answer Date Recorded In the past 12 months has th e [employer], gas, oil, or water company threatened to [...] often do you attend chur ch or taoism services? Never 03/31/2023 Do you belong to any clubs o r organizations such as gnosticism groups, unions, fraternal or athletic groups, or [...] place to sleep or slept in a residential (including now)? Yes 03/31/2023 Personal Safety Answer Date Recorded Have you ever been in or are you currently in a harmful physical or emotional relationship or is someone making you feel afraid or unsafe? Denies 03/25/2023 Sex and Gender Information Value Date Recorded Sex Assigned at Not on file Legal Sex Male 7:12 PM [employer] Gender Identity Not on file Sexual Orientation Not on file documented as of this encounter Miscellaneous Notes * Telephone Encounter - Sherie Link - 11/16/2023 1:10 PM CDT Request for records send by patient to [facility] Release placed for [employer] documented in this encounter Plan of Treatment Not on file documented as of this encounter Visit Diagnoses Not on filedocumented in this encounter Care Teams Hospital Laboratory Technician Relationship Specialty Start Date End Date Nguyễn Bingham MD [address] [place] [address] PCP - General Emergency Medicine 07/28/23 02/16/24 documented as of this encounter
--- OUTSIDE RECORDS SUMMARY | 2024-06-08 00:06 | XMS_ITS | Encounter Summary ---
Author Organization [facility] Healthcare Address [address] [place] [address] Care Team Providers Care Termite Exterminator Helper Name Role Phone Herb Burden MD Primary Care Provider + [phone] Reason for Visit * Auth/Cert (Routine) Specialty Diagnoses / Procedures Referred By Padmini t Referred To Contact Referral ID Status Reason Start Date Expiration Date Visits Re quested Visits Authorized [id number] 1 1 Encounter Details Date Type Department Care Team ([facility] Contact Info) Description 04/24/2023 12:00 PM VISUAL C DEVELOPER Home Care Visit [facility] [address] [address] [address] [place] [address] Smiley Chan RN SN HOME VISIT Social History Tobacco Use Types Packs/Day Years Used Date Smoking Tobacco: Never OASIS D0700: Social Isolation Answer Da te Recorded Frequency of experiencing loneliness or isolatio n Never 04/05/2023 OASIS A1250: Transportation Answer Date Recorded Lack of Transportation (Medical) No 04/05/2023 Lack of Transportation (Non-Medical) No 04/05/2023 Patient Unable or Declines to Respond No 04/05/2023 OASIS B1300: Health Literacy Answer Melvin e Recorded Frequency of needing help to read materials from doctor or pharmacy Never 04/05/2023 [facility] Utilities Answer Date Recorded In the past 12 months has th e [employer], gas, oil, or water company threatened to [...] often do you attend chur ch or muslim services? Never 03/31/2023 Do you belong to any clubs o r organizations such as jain groups, unions, fraternal or athletic groups, or [...] place to sleep or slept in a penitentiary (including now)? Yes 03/31/2023 Personal Safety Answer Date Recorded Have you ever been in or are you currently in a harmful physical or emotional relationship or is someone making you feel afraid or unsafe? Denies 03/25/2023 Sex and Gender Information Value Date Recorded Sex Assigned at Not on file Legal Sex Male 7:12 PM VISUAL C DEVELOPER Gender Identity Not on file Sexual Orientation Not on file documented as of this encounter Last Filed Vital Signs Vital Sign Reading Time Taken Comments Blood Pressure 142/70 04/24/2023 11:40 AM VISUAL C DEVELOPER Pulse 85 04/24/2023 11:40 AM VISUAL C DEVELOPER Temperature 36.5 ??C (97.7 ??F) 04/24/2023 11:[address] Respiratory Rate 18 04/24/2023 11:40 AM VISUAL C DEVELOPER Oxygen Saturation 98% 04/24/2023 11:40 AM VISUAL C DEVELOPER Inhaled Oxygen Concentration - - Weight - - Height - - Body Mass Index - - documented in this encounter Miscellaneous Notes * Home Health Plan for Next Visit - Smiley Chan RN - 04/24/2023 12:00 PM CST Reason for today's visit wound care Discuss plan of care with patient Discharge planning ongoing Plan for next visit wound care AL C DEVELOPER documented in this encounter Plan of Treatment Not on file documented as of this encounter Visit Diagnoses Not on filedocumented in this encounter Home Health Visit - Care Plan Visit Details Visit Type -SN Home Visit Discipline -Alf Problems Problem Description Start Date Status Goals Interve ntions Homebound Status Disciplines: Skilled Disciplines Patient's homebound status 04/05/2023 Active 1 goal linked to scheduled/documen bridgette intervention 1 goal intervention scheduled/documen bridgette in this visit Medications Disciplines: Alf Management of home medications 04/05/2023 Active 1 goal linked to scheduled/documen bridgette intervention 2 goal interventions scheduled/documen bridgette in this visit Monitor patient's vital signs every home health visit Disciplines: SN, PT, OT, FORESTRY WORKER, VOCATIONAL TECHNICAL EDUCATION DIRECTOR, Skilled Disciplines Monitor patient's vital signs every home health visit. 04/05/2023 Active 1 goal linked to scheduled/documen bridgette intervention 1 goal intervention scheduled/documen bridgette in this visit Infection Prevention Disciplines: Skilled Disciplines Infection Prevention 04/05/2023 Active 1 goal linked to scheduled/documen bridgette intervention 1 goal intervention scheduled/documen bridgette in this visit Safety concerns Disciplines: Skilled Disciplines Alteration in safety 04/05/2023 Active 1 goal linked to scheduled/documen bridgette intervention 2 goal interventions scheduled/documen bridgette in this visit Pain Disciplines: Core Disciplines Alteration in comfort 04/05/2023 Active 1 goal linked to scheduled/documen bridgette intervention 1 goal intervention scheduled/documen bridgette in this visit Wound Education and Management Disciplines: Core Disciplines Knowledge deficit related to wound management and risk of infection. 04/05/2023 Active 1 goal linked to scheduled/documen bridgette intervention 1 goal intervention scheduled/documen bridgette in this visit Wound Care Disciplines: Core Disciplines Wound care needed 04/05/2023 Active 1 goal linked to scheduled/documen bridgette intervention 1 goal intervention scheduled/documen bridgette in this visit Wound Care Disciplines: Core Disciplines Wound care needed 04/05/2023 Active 1 goal linked to scheduled/documen bridgette intervention 1 goal intervention scheduled/documen bridgette in this visit Goals Goal Associated Problem Outcome Goal Met? Visit Notes Patient receives care at the most appropriate care setting Description: Patient receives care at the most appropriate care setting throughout episode of care 06/03/23 Homebound Status No Understand and follow medication therapy Description: Patient will understand and follow prescribed medication therapy as evidence by having up to date medication list in home & ability to verbalize purpose, schedule, and side effects by the end of the episode of care 06/03/23 Medications No Measure vital signs during every home health visit during episode of care Description: Home aadc plans staff officer to measure vital signs during every home health visit during episode of care throughout episode of care 06/03/23 Monitor patient's vital signs every home health visit No Verbalize signs of infection Description: Patient/caregiver will demonstrate knowledge of infection prevention strategies by verbalizing signs and symptoms of infection by 04/17/23 Infection Prevention No Demonstrate use of safety precautions Description: Patient maintains safe home environment as evidenced by remaining free from injury and demonstrates use of safety precautions throughout episode of care 06/03/23 Safety concerns No Report that pain has been reduced or controlled Description: Patient will verbalize satisfaction with the patients level of pain and symptom control throughout episode of care Pain No Knowledgeable of Wound Management Description: Patient/caregiver will be knowledgeable on management of wound and when to seek medical attention as evidenced by progressive wound healing and patient/caregiver ability to verbalize signs and symptoms to report to physician or Home Health Agency. Patient will remain free of infection and able to recognize signs of infection as long as alteration in skin integrity exists or until patient is discharged from home health services 06/03/23 Wound Education and Management No Progression towards healing Description: Wound #4 Scrotom will show progression towards healing by 06/03/23 Wound Care No Progression towards healing Description: Wound #1 L planter/foot will show progression towards healing by 06/03/23 Wound Care No Interventions Intervention Associated Problem/Goal Status Variance Visit Notes Homebound Status Description: Patient is homebound due to decreased endurance and pain as evidinced by SOB and wounds Problem:Homebound Status Goal:Patient receives care at the most appropriate care setting Completed Patient is homebound due to decreased endurance and pain as evidinced by SOB and wounds Instruct on drug interactions Description: Perform drug interaction screening and instruct patient on severe drug interactions. Notify MD of any severe interactions Problem:Medications Goal:Understand and follow medication therapy Scheduled Instruct on medication side effects Description: Instructws patient to monitor for side effects and adverse reactions Problem:Medications Goal:Understand and follow medication therapy Scheduled Monitor Vital Signs Description: Monitored blood pressure, pulse, oxygen saturation, respirations Problem:Monitor patient's vital signs every home health visit Goal:Measure vital signs during every home health visit during episode of care Completed VSS Educate Patient on Infection Prevention Description: Instructed patient on signs and symptoms of infection IE: fever, odor, change in color, increased amount of drainage, purulent drainage, warmth. Problem:Infection Prevention Goal:Verbalize signs of infection Completed Instructed patient on signs and symptoms of infection IE: fever, odor, change in color, increased amount of drainage, purulent drainage, warmth. Instruct Fall Prevention Description: Instruct patient in methods to prevent falls Problem:Safety concerns Goal:Demonstrate use of safety precautions Scheduled Assess safety Description: Assess patient safety Problem:Safety concerns Goal:Demonstrate use of safety precautions Scheduled Instruct on pain management techniques Description: Assess pain and Instruct in pharmacologic and nonpharmacologic pain management techniques prn Problem:Pain Goal:Report that pain has been reduced or controlled Scheduled Educate on Wound Care Management Description: Instructed patient on wound management including: ordered wound care, utilizing clean technique, appropriate hand hygiene, and disposal of dressings. Instruct patient/caregiver on nutrition and hydration needs for altered skin integrity, signs and symptoms of infection and/or wound deterioration to report to home health agency and or physician. Problem:Wound Education and Management Goal:Knowledgeable of Wound Management Completed Instructed patient/caregiver on wound management including s/s of infection Perform dressing change Description: Perform dressing change: Site Wound #4 Scrotom incision SN to peform wound treatment as of 04/05/23 Frequency 3 times a week Wound care as follows: cleanse with Betadine. Leave LEAD SECTION SUPERVISOR. Be sure to protect bed with towels or use bathtub and rinse tub after application. Patient is unable to see or reach area. Per Written Orders dr Maicol Burden 04/01/23 Problem:Wound Care Goal:Progression towards healing Completed Incision healed Perform dressing change Description: Perform dressing change: Wound #1 Site Left planter foot SN to perform dressing change as of 04/05/23 3x/wk also, teach patient to perform wound care. Dressing change EOD and PRN for excess drainage or dislodgement of dressing. Wound care as follows: cleanse with normal saline or wound cleanser, pat dry with gauze, apply skin barrier prep to alfredo wound area, apply Intra site gel to wound bed. cover with Allevyn foam bordered dressing. Secure area with kerlix. Written order Dr. Maicol Burden Date Order Received: 04/01/23. Problem:Wound Care Goal:Progression towards healing Completed Clinician performed wound care per Physician's order documented in this encounter Care Teams Termite Exterminator Helper Relationship Specialty Start Date End Date Herb Burden MD [address] [facility] [address] [place] [address] PCP - General Family Practice 03/25/23 07/27/23 documented as of this encounter
--- OUTSIDE RECORDS SUMMARY | 2024-06-08 00:06 | XMS_ITS | Encounter Summary ---
Author Organization [facility] Healthcare Address [address] [place] [address] Care Team Providers Care Straight Pin Making Machine Operator Name Role Phone Herb Burden MD Primary Care Provider [phone] Carissa Cancino CABINET FINISHER Unavailable [phone] Reason for Visit * Auth/Cert (Routine) Specialty Diagnoses / Procedures Referred By Contjacqui t Referred To Contact Referral ID Status Reason Start Date Expiration Date Visits Re quested Visits Authorized [id number] 1 1 Encounter Details Date Type Department Care Team (Latest Contact Info) Description 04/05/2023 11:30 AM CDT Home Care Visit [place] [address] [address] [place] [id number] Jaida Liang RN SN OASIS START OF CARE Social History Tobacco Use Types Packs/Day Years [...] materials from doctor or pharmacy Never 04/05/2023 [facility] Utilities Answer Date Recorded In the [...] often do you attend chur ch or moravian services? Never 03/31/2023 Do you belong to any clubs o r organizations such as religion groups, unions, fraternal or athletic groups, or [...] place to sleep or slept in a fci (including now)? Yes 03/31/2023 Personal Safety Answer Date Recorded Have you ever been in or are you currently in a harmful physical or emotional relationship or is someone making you feel afraid or unsafe? 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 [Insert discipline note/date and patient information]. According to OASIS guidance if patient has had 2 or more ER visits in the past 6 months. (Does not include walk-in clinics, urgent care, same-day physician visits), Code 4. Added Response 7. Patient is taking 5 or more medications, including OTC, prescribed, scheduled or PRN. According to OASIS guidance if patient is taking 5 or medications, Code 7. Added Response 5. Pt. has a diagnosis of adjustment disorder (depression/anxiety). According to OASIS guidance although not mentioned in comprehensive assessment or clear if there has been a decline on patients depression. IF the patient has had a decline in mental, emotional, or behavioral status they are more likely to experience rehospitalization and Response 5 would be appropriate. RATORY TECHNOLOGIST * Home Health Visit Narrative - Jaida Liang RN - 04/05/2023 11:15 AM CDT SNV completed today for SOC assessment, Patient is very pleasant and honest, he has no caregiver and usually is the primary caregiver for his mother and is motivated for there reunion to home. See SBAR. 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 Patient had numerous bags that television script writer sorted through to obtain items needed for wound care. Patient reported that he was ruining the sheets at the hotel d/t leakage, even said that housekeeping were not nice to him as he is ruining the bed sheets acusing him of urinating on the bed. Patient gave television script writer permission to discuss situation with Hotel staff to provide extra towels to prevent damage to the bed and sheets. Staff agreed to provide extra towels to be placed on bed as patient is also being treated with betadinewashes to scrotum. Patient is unable to perform procedure himself as he can not reach or see the wound region. Rn Neonatal Icu had patient put one foot into bath tub holding onto grab bar, placed a chux on the floor of the bathtub d/t betadine staining and provided wound care. Bath tub cleaned by television script writer to prevent staining when procedure was complete, instructed patient on perineal care. dressing to RLE applied as it was open to air upon arrival. Instructed patient not to remove dressing. All questions and concerns addressed. Account and Supplies ordered [facility] REMOTV. Jaida RN documented in this encounter Plan of Treatment Not on file documented as of this encounter Visit Diagnoses Not on filedocumented in this encounter Home Health Visit - Care Plan Visit Details Visit Type -SN OASIS Start o f Care Discipline -Usp Problems Problem Description Start Date Status Goals Interve ntions Homebound Status Disciplines: Skilled Disciplines Patient's homebound status 04/05/2023 Active 1 goal linked to scheduled/documen bridgette intervention 1 goal intervention scheduled/documen bridgette in this visit Medications Disciplines: Usp Management of home medications 04/05/2023 Active 1 goal linked to scheduled/documen bridgette intervention 4 goal interventions scheduled/documen bridgette in this visit Monitor patient's vital signs every home health visit Disciplines: SN, PT, OT, POULTRY SCIENTIST, CLERK GUIDE, Skilled Disciplines Monitor patient's vital signs every home health visit. 04/05/2023 Active 1 goal linked to scheduled/documen bridgette intervention 2 goal interventions scheduled/documen bridgette in this visit Infection Prevention Disciplines: Skilled Disciplines Infection Prevention 04/05/2023 Active 1 goal linked to scheduled/documen bridgette intervention 2 goal interventions scheduled/documen bridgette in this visit Safety concerns Disciplines: Skilled Disciplines Alteration in safety 04/05/2023 Active 1 goal linked to scheduled/documen bridgette intervention 2 goal interventions scheduled/documen bridgette in this visit Knowledge Deficit - Other Disease Process and Management Disciplines: Skilled Disciplines Other disease process and management not already specified Diabetes 04/05/2023 Active 1 goal linked to scheduled/documen [...] visit during episode of care Description: Home access clinician to measure vital signs during every home [...] episode of care 06/03/23 Safety concerns No Understanding of disease process Description: Patient/caregiver will demonstrate understanding of disease process by verbalizing signs and symptoms, preventative measures, and when to report to home care agency or provider. Knowledge Deficit - Other Disease Process and Management No Report that pain has been reduced [...] interactions Problem:Medications Goal:Understand and follow medication therapy Completed performed drug interaction screening and instruct patient on severe drug interactions. Notiy MD of potential severe interactions on 04/06/23 as it is the weekend Instruct on medication side effects Description: Instructws patient to monitor for side effects and adverse reactions Problem:Medications Goal:Understand and follow medication therapy Completed Instructed on potential side effects of meds Instruct medications Description: Instruct patient/caregiver in medication administration, purpose, dosages, preparation, scheduling, side effects, food/drug interactions, storage, drug allergies, and potential complications. Problem:Medications Goal:Understand and follow medication therapy Instructed patient/caregiver in medication administration, purpose, dosages, preparation, scheduling, side effects, food/drug interactions, storage, drug allergies, and potential complications. Instruct on medication delivery system Description: Instructed patient on medication delivery system. Keep up to date medication list with patient Problem:Medications Goal:Understand and follow medication therapy Encouraged use of a medication case planner dispenser, patient does not have one Monitor Vital Signs Description: Monitored blood pressure, pulse, oxygen saturation, respirations Problem:Monitor patient's vital signs every home health visit Goal:Measure vital signs during every home health visit during episode of care Completed Monitored blood pressure, pulse, oxygen saturation, respirations Supervising Discipline notification of abnormal vital signs Description: Uses standardized clinical guidelines of abnormal vitals signs to report to supervising discipline. (HR 50-110, SBP 90-160, DBP 40-90, O2Sat 88-100%, temporal temp less than 101.5) Problem:Monitor patient's vital signs every home health visit Goal:Measure vital signs during every home health visit during episode of care N/A Educate Patient on Infection Prevention Description: Instructed patient on signs and symptoms of infection IE: fever, odor, change in color, increased amount of drainage, purulent drainage, warmth. Problem:Infection Prevention Goal:Verbalize signs of infection Completed Instructed patient on signs and symptoms of infection IE: fever, odor, change in color, increased amount of drainage, purulent drainage, warmth. Aspects of Care Description: Instruct patient/caregiver on universal precautions and home infection control measures Problem:Infection Prevention Goal:Verbalize signs of infection Instruct patient on universal precautions and home infection control measures Instruct Fall Prevention Description: Instruct patient in methods to prevent falls Problem:Safety concerns Goal:Demonstrate use of safety precautions Completed Instruct patient in methods to prevent falls Assess safety Description: Assess patient safety Problem:Safety concerns Goal:Demonstrate use of safety precautions Completed Assessed patient safety Notification of Complications Description: Instructed patient/caregiver when to notify SN/MD of complications Problem:Knowledge Deficit - Other Disease Process and Management Goal:Understanding of disease process Instructed patient/caregiver when to notify SN/MD of complications Instruct on Disease Process Description: Instruct patient/caregiver on disease process and management Diabetes using ha booklet Problem:Knowledge Deficit - Other Disease Process and Management Goal:Understanding of disease process Reviewed diabetes medications, testing and administration sites Instruct on pain management techniques Description: Assess pain and Instruct in pharmacologic and nonpharmacologic pain management techniques prn Problem:Pain Goal:Report that pain has been reduced or controlled Completed Assessed pain Educate on Wound Care Management Description: Instructed patient on wound management including: ordered wound care, utilizing clean technique, appropriate hand hygiene, and disposal of dressings. Instruct patient/caregiver on nutrition and hydration needs for altered skin integrity, signs and symptoms of infection and/or wound deterioration to report to home health agency and or physician. Problem:Wound Education and Management Goal:Knowledgeable of Wound Management Completed Instructed patient on wound management including: ordered wound care, utilizing clean technique, appropriate hand hygiene, and disposal of dressings. Instruct patient/caregiver on nutrition and hydration needs for altered skin integrity, signs and symptoms of infection and/or wound deterioration to report to home health agency and or physician. Perform dressing change Description: Perform dressing change: Site Wound #4 Scrotom incision SN to peform wound treatment as of 04/05/23 Frequency 3 times a week Wound care as follows: cleanse with Betadine. Leave ARELI. Be sure to protect bed with towels or use bathtub and rinse tub after application. Patient is unable to see or reach area. Per Written Orders dr Maicol Burden 04/01/23 Problem:Wound Care Goal:Progression towards healing Completed Perform dressing change: Site Wound #4 Scrotom incision SN to peform wound treatment as of 04/05/23 Frequency 3 times a week Wound care as follows: cleansed with Betadine. Leave CRANE RIGGER. Be sure to protect bed with towels or use bathtub and rinse tub after application. Patient is unable to see or reach area. Placed a chux pad in bathtub, patient step with good foot and held onto the grab bar, wound care provided per MD orders. Per Written Orders dr Maicol Burden 04/01/23 Perform dressing change Description: Perform dressing change: [...] 04/01/23. Problem:Wound Care Goal:Progression towards healing Completed Performed dressing change: Wound #1 per orders Site Left planter foot SN to perform [...] foam bordered dressing. Secure area with kerlix. documented in this encounter Care Teams Straight Pin Making Machine Operator Relationship Specialty Start Date End Date Herb Burden MD [address] [place] [id number] PCP - General Family Practice 03/25/23 07/27/23 Carissa Cancino, CABINET FINISHER [address] [facility] [place] [place] Mailstop [phone] [place] [address] [facility] Outpatient Cotton Grader 03/31/23 04/21/23 documented as of this encounter
--- OUTSIDE RECORDS SUMMARY | 2024-06-08 00:06 | XMS_ITS | Encounter Summary ---
Author Organization [facility] Healthcare Address [address] [place] [address] Care Team Providers Care Senior Accounting Clerk Name Role Phone Mary Platt MD Primary Care Provider [phone] Reason for Visit * Reason Comments Abscess Encounter Details Date Type Department Care Team ([facility] st Contact Info) Description 05/12/2024 1:23 PM OCCUPATIONAL HEALTH NURSE MANAGER - 05/13/2024 4:10 PM [facility] Emergency [facility] Emergency Department [address] [place] [id number] Ruth Patel MD [address] [place] [address] [phone] Ancelmo Conroy MD [address] [place] [address] [phone] Ricky Floyd DO [address] [place] [address] [phone] Cellulitis of left lower extremity (Primary Dx); Acute kidney injury (HCC); Sepsis, due to unspecified organism, unspecified whether acute organ dysfunction present (HCC) Discharge Disposition: Discharge to a short term hospital for IP Social History Tobacco Use Types Packs/Day Years [...] materials from doctor or pharmacy Never 05/06/2023 [facility] Utilities Answer Date Recorded In the [...] often do you attend chur ch or sikhism services? Never 03/31/2023 Do you belong to any clubs o r organizations such as hindu groups, unions, fraternal or athletic groups, or [...] place to sleep or slept in a longterm (including now)? Yes 03/31/2023 Personal Safety Answer Date Recorded Have you ever been in or are you currently in a harmful physical or emotional relationship or is someone making you feel afraid or unsafe? Denies 05/12/2024 Sex and Gender Information Value Date Recorded Sex Assigned at Not on file Legal Sex Male 7:12 PM OCCUPATIONAL HEALTH NURSE MANAGER Gender Identity Not on file Sexual Orientation Not on file documented as of this encounter Last Filed Vital Signs Vital Sign Reading Time Taken Comments Blood Pressure 147/63 05/13/2024 2:55 PM OCCUPATIONAL HEALTH NURSE MANAGER Pulse 94 05/13/2024 2:55 PM OCCUPATIONAL HEALTH NURSE MANAGER Temperature 37.1 ??C (98.8 ??F) 05/13/2024 2:55 PM CS T Respiratory Rate 23 05/13/2024 2:55 PM OCCUPATIONAL HEALTH NURSE MANAGER Oxygen Saturation 96% 05/13/2024 2:55 PM OCCUPATIONAL HEALTH NURSE MANAGER Inhaled Oxygen Concentration - - Weight 188 kg (414 lb 7.4 oz) 05/12/2024 1:27 PM OCCUPATIONAL HEALTH NURSE MANAGER Height 198.1 cm (6' 6 ) 05/12/2024 1:27 PM OCCUPATIONAL HEALTH NURSE MANAGER Body Mass Index 47.9 05/12/2024 1:27 PM OCCUPATIONAL HEALTH NURSE MANAGER documented in this encounter Medications at Time of Discharge atorvastatin (LIPITOR) 20 mg tabletIndications :Hyperlipidemia due to type 2 diabetes mellitus (HCC) Take 1 tablet (20 mg total) by mouth nightly 90 tablet 3 02/17/2024 buPROPion SR (WELLBUTRIN SR) 150 mg 12 hr tablet Take 1 tablet (150 mg total) by mouth 2 (two) times a day 02/03/2024 ergocalciferol (VITAMIN D) 50,000 unit capsuleIndication s:Vitamin D Deficiency Take 1 capsule (50,000 Units total) by mouth once a week 12 capsule 1 02/18/2024 furosemide (LASIX) 20 mg tablet Take 1 tablet (20 mg total) by mouth every other day gabapentin (NEURONTIN) 300 mg capsule Take 1 capsule (300 mg total) by mouth 3 (three) times a day 07/23/2023 insulin glargine (LANTUS) 100 unit/mL (3 mL) pen for injectionIndicati ons:Type 2 diabetes mellitus with hyperglycemia, with long-term current use of insulin (HCC) Inject 20 Units under the skin nightly 15 mL 6 10/08/2023 5 insulin lispro (ADMELOG) 100 unit/mL pen for injectionIndicati ons:type 1 diabetes mellitus Inject 10 Units under the skin 3 (three) times a day with meals 15 mL 6 10/08/2023 5 losartan (COZAAR) 100 mg tablet Take 1 tablet (100 mg total) by mouth daily 01/12/2024 metFORMIN (GLUCOPHAGE) 500 mg tabletIndications :Type 2 diabetes mellitus with hyperglycemia, with long-term current use of insulin (HCC) Take 1 tablet (500 mg total) by mouth 2 (two) times a day with meals 180 tablet 3 02/17/[address] (PROTONIX) 40 mg EC tabletIndications :Stress Ulcer Prophylaxis Take 1 tablet (40 mg total) by mouth daily 30 tablet 1 03/26/2023 tamsulosin (FLOMAX) 0.4 mg extended release capsule Take 1 capsule (0.4 mg total) by mouth daily after dinner 07/16/2023 tirzepatide (Mounjaro) 5 mg/0.5 mL pen injectorIndicatio ns:type 2 diabetes mellitus Inject 5 mg under the skin every 7 days 6 mL 3 02/17/2024 5 acetaminophen (TYLENOL) 500 mg tablet Take 1 tablet (500 mg total) by mouth every 6 (six) hours as needed acetaminophen-asp irin-caffeine (EXCEDRIN MIGRAINE) 250-250-65 mg per tabletIndications :Pain Take 1 tablet by mouth daily as needed for headaches or pain alcohol swabs (Alcohol Wipes) pads, medicated Use as directed. 100 each 03/25/2023 blood glucose diagnostic (glucose blood) strip Use as directed up to four times a day. 100 each 1 03/11/2023 blood-glucose meter kit Use as directed. 1 kit 03/11/2023 ClearLax 17 gram/dose bulk powder Take 17 g by mouth daily as needed (constipation) 07/17/2023 Dexcom G7 Sensor deviceIndications :Type 2 diabetes mellitus with hyperglycemia, with long-term current use of insulin (HCC) Change sensor every 10 days 10 each 3 02/17/2024 ferrous sulfate 325 mg (65 mg of elemental iron) tablet 06/02/2023 glucagon (Baqsimi) 3 mg/actuation spray,non-aerosol One spray into one nostril once as directed by provider for low blood sugar. 1 each 03/25/2023 ibuprofen 200 mg tab/cap Take 2 tablet/capsule (400 mg total) by mouth every 6 (six) hours as needed for pain lancets misc Use as directed up to 4 times a day. 100 each 1 03/11/2023 loperamide (IMODIUM) 2 mg capsule Take 1 capsule by mouth 4 times per day as needed 11/10/2023 pen needle, diabetic 32 gauge x 5/32 needleIndications :Type 2 diabetes mellitus with hyperglycemia, with long-term current use of insulin (HCC) Use as directed 3 times a day. 100 each 3 02/17/2024 documented as of this encounter Discharge Disposition Disposition Code Departure Means Destination Comment s Discharge to a short term hospital for [facility] documented in this encounter Progress Notes * Betty Hanson, [facility] - 05/13/2024 7:33 AM CST Vancomycin Pharmacokinetics Consult and Monitoring Rene Hyatt is a 43 y.o. male patient admitted to [facility] ED-[id number]. Pharmacy service has been consulted for vancomycin dosing and monitoring. Therapy Summary: Indication: skin/soft tissue infection Pertinent Microbiology: Date Test Results MRSA swab 05/12 blood culture in process culture culture Other ordered antimicrobial(s): Antimicrobial Name Start Date Stop Date cefepime 05/12 flagyl 05/12 Dosing Considerations: Body Habitus: Height: Ht Readings from Last 1 Encounters: 05/12/24 198.1 cm (6' 6 ) Weight: Wt Readings from Last 1 Encounters: 05/12/24 (!) 188 kg (414 lb 7.4 oz) Any amputations? No BMI: BMI Readings from Last 1 Encounters: 05/12/24 47.90 kg/m?? Renal Function: Lab Results Component Value Date CREATININE 1.40 (H) 05/12/2024 CREATININE 0.75 09/17/2023 CREATININE 0.83 03/22/2023 CREATININE 0.81 03/21/2023 CREATININE 0.77 (L) 03/20/2023 CREATININE 0.83 03/18/2023 CREATININE 0.82 03/17/2023 Baseline SCr (mg/dL) prior to admission/vancomycin therapy: 0.7 Dialysis: N/A Recent Vancomycin Dosing History: Date Dosing Regimen Administration Time(s) Pertinent Levels [Trough/Random] (mcg/mL) Time (hrs) Between Last Dose & Level Comments 05/12 2500 mg x 1 loading dose 1542 05/13 2000mg x 1 1500mg q12 0800 () 2000 () 05/14 0800 () T @ 0700 Estimated Vancomycin Pharmacokinetic Analysis: Half life (hours): 10.2 Expected trough (mcg/mL): 14.9 [goal: 10-20] Expected Vd (L): 86 Weight-based dosing of regimen (mg/kg based on actual body weight): 8mg/kg Assessment/Plan for Vancomycin Dosing 1) Renal assessment --- Estimated Creatinine Clearance: 87 mL/min (A) (by Cockcroft-Gault based on SCr of 1.4 mg/dL (H)). Renal status: >30% change from baseline. Close therapy assessment and monitoring warranted. 2) Dosing plan --- Will 2500mg was given in the ED yesterday. This morning we will schedule 2000mg x 1 and then start 1500mg q12h. Monitor renal function . 3) Anticipated duration of therapy --- To be determined 4) Labs ordered --- Next vancomycin level: 05/14 @ 0700 Next BMP/SCr: daily 5) Pharmacy will continue to follow patient's clinical progress throughout admission. Will continueto monitor labs and adjust doses accordingly. Thank you for the opportunity to participate in the care of this patient. PATIONAL HEALTH NURSE MANAGER documented in this encounter ED Notes * Ricky Floyd DO - 05/13/2024 1:24 AM CST Spoke with transfer center for [facility], they do have an available bed with appropriate services including podiatry and vascular surgery at [facility]. Dr. Cuevas from podiatry is available to care for patient, spoke with the hospitalist Dr. Shah who is accepting patient for transfer. We will continue to monitor until transfer to outside hospital. iRcky Floyd DO 05/13/24 0126 PATIONAL HEALTH NURSE MANAGER * Ruth Patel MD - 05/12/2024 1:40 PM CST Images from the original note were not included. HPI Chief Complaint Patient presents with Abscess 43-year-old male past medical history diabetes, hypertension, obesity presents with left foot woundthat ???exploded?? yesterday. Patient reports that he was last seen by psychiatrist 2 weeks ago who told him to keep wrapping the wound and the sore. States over the last several days he has noted increasing redness from the wound all the way up to his knee and last night the wound started draining foul-smelling discharge. He does report fevers and chills. He denies any chest pain, shortness of breath. Denies any trauma. No other complaints. HPI Patient History: Patient Active Problem List Diagnosis Date Noted Hypertension associated with type 2 diabetes mellitus (HCC) 02/17/2024 Hyperlipidemia due to type 2 diabetes mellitus (HCC) 02/17/2024 Type 2 diabetes mellitus with hyperglycemia, with long-term current use of insulin ([facility]) 10/08/2023 Class 3 obesity 03/16/2023 Hypertension 03/16/2023 Vitamin D deficiency 03/10/2023 Diabetic foot ulcer (CMS/HCC) (HCC) 03/10/2023 Anemia 03/10/2023 Scrotal abscess 03/06/2023 Perineal abscess 03/06/2023 Past Medical History: Diagnosis Date Hypertension 03/16/2023 Type 2 diabetes mellitus (HCC) No past surgical history on file. Family History Problem Relation Age of Onset Diabetes Mother Social History Tobacco Use Smoking status: Never Smokeless tobacco: Not on file Substance and Sexual Activity Alcohol use: Not on file Drug use: Defer Sexual activity: Not on file Social History Social History Narrative Not on file Review of Systems Review of Systems Constitutional: Positive for chills and fever. Respiratory: Negative for shortness of breath. Cardiovascular: Negative for chest pain. Gastrointestinal: Negative for abdominal pain, constipation, diarrhea, nausea and vomiting. Skin: Positive for rash and wound. Physical Exam ED Triage Vitals Temp Pulse Resp BP SpO2 05/12/24 1327 05/12/24 1327 05/12/24 1327 05/12/24 1350 05/12/24 1327 (!) 38.5 ??C (101.3 ??F) 117 22 151/77 100 % Temp src Heart Rate Source Patient Position BP Location FiO2 (%) 05/12/24 1528 05/12/24 1528 -- -- -- Oral Monitor Height Height Method Weight Weight Method 05/12/24 1327 -- 05/12/24 1327 05/12/24 1327 1.981 m (6' 6 ) (!) 188 kg (414 lb 7.4 oz) EMS stretcher scale Physical Exam Constitutional: General: He is not in acute distress. Appearance: He is obese. He is not ill-appearing or toxic-appearing. Cardiovascular: Rate and Rhythm: Regular rhythm. Tachycardia present. Heart sounds: No murmur heard. No friction rub. No gallop. Pulmonary: Effort: Pulmonary effort is normal. No respiratory distress. Breath sounds: Normal breath sounds. No wheezing, rhonchi or rales. Abdominal: Palpations: Abdomen is soft. Tenderness: There is no abdominal tenderness. There is no guarding or rebound. Musculoskeletal: General: Normal range of motion. Right lower leg: No edema. Left lower leg: Edema present. Skin: General: Skin is warm and dry. Capillary Refill: Capillary refill takes less than 2 seconds. Comments: Large partially open wound with avulsed skin over L heel appears exposed to bone with significant surrounding cellulitis up to distal patella and edema Neurological: General: No focal deficit present. Mental Status: He is alert. MDM 43-year-old male past medical history diabetes presents with a large open area to chronic left heelulcer with significant surrounded erythema and cellulitis. Patient is febrile here, tachycardic there is concern for sepsis likely due to underlying osteomyelitis. For labs, x-ray, vancomycin and Zosyn, admission. Medical Decision Making ED Course as of 05/12/241835 Time: 05/12 1648 Comment: Discussed case with By: Ruth Patel MD Time: 05/12 1756 Comment: Discussed with Dr. Dasilva, unfortunately no podiatry [employer] consultant this week. I then discussedthe case with Dr. Barnes, vascular who states he can only offer an amputation as he does not do wound care and he also states Dr. Lala is not in town until Thursday. Thus I will reach out to hospitals for podiatry availability at this time. By: Ruth Patel MD Time: 05/12 1835 Comment: Patient signed out to Dr. Floyd By: Ruth Patel MD Final diagnoses: Cellulitis of left lower extremity Acute kidney injury (HCC) Sepsis, due to unspecified organism, unspecified whether acute organ dysfunction present (HCC) Ruth Patel MD 05/12/241835 PATIONAL HEALTH NURSE MANAGER * Tate Allen - 05/12/2024 1:25 PM CST Pt brought to the ED with c/o of left foot pain abscess/diabetic foot and swelling. PATIONAL HEALTH NURSE MANAGER PATIONAL HEALTH NURSE MANAGER documented in this encounter Plan of Treatment Pending Results Name Type Priority Associated Diagnoses Date /Time CRP (acute phase) Lab STAT 024 2:58 PM OCCUPATIONAL HEALTH NURSE MANAGER Scheduled Orders Name Type Priority Associated Diagnoses Orde r Schedule CRP (acute phase) Lab STAT Once fo r 1 Occurrences starting 05/12/2024 until 05/12/2024 documented as of this encounter Procedures Procedure Name Priority Date/Time Associated Diagnosis Comments POCT GLUCOSE DEVICE Routine 05/13/2024 8 :31 AM OCCUPATIONAL HEALTH NURSE MANAGER POCT GLUCOSE DEVICE Routine 05/12/2024 7 :52 PM OCCUPATIONAL HEALTH NURSE MANAGER EGFR STAT 05/12/2024 2:58 PM OCCUPATIONAL HEALTH NURSE MANAGER CRP (ACUTE PHASE) STAT 05/12/2024 2:5 8 PM OCCUPATIONAL HEALTH NURSE MANAGER COMPREHENSIVE METABOLIC PANEL STAT 05/12/2024 2:58 PM OCCUPATIONAL HEALTH NURSE MANAGER XR FOOT LEFT 3 OR MORE VIEWS ED 05/12/2024 1:58 PM OCCUPATIONAL HEALTH NURSE MANAGER BLOOD CULTURE STAT 05/12/2024 1:42 PM OCCUPATIONAL HEALTH NURSE MANAGER BLOOD CULTURE STAT 05/12/2024 1:42 PM OCCUPATIONAL HEALTH NURSE MANAGER SEPSIS LACTATE WITH REFLEX STAT 05/12/2024 1:34 PM OCCUPATIONAL HEALTH NURSE MANAGER DIFFERENTIAL AUTO STAT 05/12/2024 1:3 4 PM OCCUPATIONAL HEALTH NURSE MANAGER CBC WITH AUTO DIFFERENTIAL STAT 05/12/2024 1:34 PM OCCUPATIONAL HEALTH NURSE MANAGER documented in this encounter Results * (ABNORMAL) POCT glucose (05/13/2024 8:31 AM OCCUPATIONAL HEALTH NURSE MANAGER) [facility] Signature Glucose, POC 202(H) 70 - 199 mg/dL Comment:Testing performed by : [facility], [address] [place] [address]., [address] Glucose comment 1 Use This Result NICOLASA Comment:Testing performed by : [address] [address] Blood 05/13/2024 8:31 AM OCCUPATIONAL HEALTH NURSE MANAGER 05/13/2024 8:31 AM OCCUPATIONAL HEALTH NURSE MANAGER Ancelmo Conroy MD LAB POCT ORDERABLES - DEVICE Final Result Performing Organization Address [facility] Co de Phone Number [address] [place] [address] * POCT glucose (05/12/2024 7:52 PM OCCUPATIONAL HEALTH NURSE MANAGER) Pathologist [facility] Glucose, POC 188 70 - 199 mg/dL Comment:Testing performed by : [address] [address] Blood 05/12/2024 7:52 PM OCCUPATIONAL HEALTH NURSE MANAGER 05/12/2024 7:52 PM OCCUPATIONAL HEALTH NURSE MANAGER Result [facility] Ruth Patel MD LAB POCT ORDERABLES - DEVICE Fi nal Result Performing Organization Address [facility] Co de Phone Number [id number] [place] [address] * (ABNORMAL) CRP (acute phase) (05/12/2024 2:58 PM OCCUPATIONAL HEALTH NURSE MANAGER) [facility] CRP 270.4(H) <=10.0 mg/L Comment:Testing performed by : [address] [address] Blood 05/12/2024 2:58 PM OCCUPATIONAL HEALTH NURSE MANAGER 05/12/2024 3:03 PM OCCUPATIONAL HEALTH NURSE MANAGER Result [facility] Ruth Patel MD LAB BLOOD ORDERABLES Final Resu lt Performing Organization Address [facility]/ZIP Co de Phone Number [address] [place] [address] * eGFR (05/12/2024 2:58 PM OCCUPATIONAL HEALTH NURSE MANAGER) eGFR 64 >=60 mL/min/1. 73 m2 Comment: [...] was last reviewed 2021. Testing performed by: [address] [address] Blood 05/12/2024 2:58 PM OCCUPATIONAL HEALTH NURSE MANAGER 05/12/2024 3:03 PM OCCUPATIONAL HEALTH NURSE MANAGER [facility] GALVAN LAB BLOOD ORDERABLES Final Resu lt [id number] [id number] [facility] Department [place] [address] * (ABNORMAL) Comprehensive metabolic panel (05/12/2024 2:58 PM OCCUPATIONAL HEALTH NURSE MANAGER) Pathologist [facility] Sodium 131(L) 135 - 145 mmol/L Comment:Testing performed by : [address] [place] [address] Potassium, pl 4.0 3.3 - 4.9 mmol/L NICOLASA Comment:Testing performed by : [address], [place]., [address] Chloride 97 97 - 110 mmol/L NICOLASA Comment:Testing performed by : [address], [place]., [address] CO2 20(L) 22 - 32 mmol/L NICOLASA Comment:Testing performed by : [address], [place]., [address] Anion gap 14 2 - 15 mmol/L NICOLASA Comment:Testing performed by : [address], [place]., [address] BUN 35(H) 6 - 25 mg/dL NICOLASA Comment:Testing performed by : [address], [place]., [address] Creatinine 1.40(H) 0.80 - 1.30 mg/dL NICOLASA Comment:Testing performed by : [address] [address] Glucose 207(H) 70 - 199 mg/dL [facility] Comment: Interpretive Data Fasting glucose >/= 126 [...] was last revised 2022. Testing performed by: [address] [address] Calcium 8.1(L) 8.5 - 10.3 mg/dL NICOLASA Comment:Testing performed by : [address], [place]., [address] Bilirubin, total 0.5 0.1 - 1.2 mg/dL NICOLASA Comment:Testing performed by : [address] [address] Protein, pl 6.1(L) 6.5 - 8.5 g/dL NICOLASA Comment:Testing performed by : [address] [address] Albumin 2.3(L) 3.5 - 5.0 g/dL NICOLASA SANTILLAN Comment:Testing performed by : [address] [address] Alk phos 143(H) 40 - 130 Units/L NICOLASA Comment:Testing performed by : [address] [address] ALT 17 7 - 55 Units/L NICOLASA Comment:Testing performed by : [address] [address] AST 22 10 - 50 Units/L NICOLASA Comment:Testing performed by : [address] [address] Blood 05/12/2024 2:58 PM OCCUPATIONAL HEALTH NURSE MANAGER 05/12/2024 3:03 PM OCCUPATIONAL HEALTH NURSE MANAGER [facility]AL[facility] LAB BLOOD ORDERABLES Final Resu lt NICOLASA [address] [facility] Department [place] [address] * XR Foot Left 3 or More Views (05/12/2024 1:58 PM OCCUPATIONAL HEALTH NURSE MANAGER) Anatomical Region Laterality Modality Lower Extremities, Foot Left Computed Radiography 05/12/2024 2:45 PM OCCUPATIONAL HEALTH NURSE MANAGER Narrative 05/12/2024 2:51 PM OCCUPATIONAL HEALTH NURSE MANAGER EXAM DESCRIPTION: XR FOOT LEFT 3 OR [...] PM T: ??05/12/2024 2:51 PM Report ID: [id number] Reading Location: [id number] Procedure Note Drew Moore MD - 05/12/2024 [...] Drew Moore M.D. KR: NO Report ID: [id number] Reading Location: [id number] [facility]AL[facility] IMG XR PROCEDURES Final Result * Blood culture Blood Peripheral (05/12/2024 1:42 PM OCCUPATIONAL HEALTH NURSE MANAGER) Report Final Report: No growth Comment:Testing performed by : [facility], [address] [facility], [place]., [address] Blood (Peripheral) 05/12/2024 1:42 PM OCCUPATIONAL HEALTH NURSE MANAGER 05/12/2024 5:28 PM OCCUPATIONAL HEALTH NURSE MANAGER Narrative NICOLASA - 05/17/2024 7:00 AM OCCUPATIONAL HEALTH NURSE MANAGER From a different site than #1. Draw [...] performance characteristics have been verified by the [facility] Microbiology Laboratory. For questions about this culture, contact the Microbiology Laboratory at [phone]. Interpretive data was last revised on 24. [facility] GALVAN LAB MICROBIOLOGY - GENERAL MELIDA COLLINS Final Result NICOLASA [address] [facility] Department [place] [address] * Blood culture Blood Peripheral (05/12/2024 1:42 PM OCCUPATIONAL HEALTH NURSE MANAGER) Report Final Report: No growth Comment:Testing performed by : [facility], [address] [facility], [place]., [address] Blood (Peripheral) 05/12/2024 1:42 PM OCCUPATIONAL HEALTH NURSE MANAGER 05/12/2024 5:28 PM OCCUPATIONAL HEALTH NURSE MANAGER Narrative NICOLASA - 05/17/2024 7:00 AM OCCUPATIONAL HEALTH NURSE MANAGER Draw Blood cultures before administration of Antibiotics [...] performance characteristics have been verified by the [facility] Microbiology Laboratory. For questions about this culture, contact the Microbiology Laboratory at [phone]. Interpretive data was last revised on 24. [facility] Jorge GALVAN LAB MICROBIOLOGY - GENERAL ORDSami COLLINS Final Result NICOLASA [address] [facility] Department [place] [address] * (ABNORMAL) Differential, auto (05/12/2024 1:34 PM OCCUPATIONAL HEALTH NURSE MANAGER) [facility] Neutrophil abs 20.7(H) 1.5 - 6.5 K/cumm Comment:Testing performed by : [address] [address] Imm gran abs 0.5(H) 0.0 - 0.1 K/cumm NICOLASA SANTILLAN Comment:Testing performed by : [address] [address] Lymphocyte abs 1.7 0.8 - 3.3 K/cumm NICOLASA Comment:Testing performed by : [address] [address] Monocyte abs 1.9(H) 0.2 - 0.8 K/cumm NICOLASA SANTILLAN Comment:Testing performed by : [address] [address] Eosinophil abs 0.0 0.0 - 0.5 K/cumm NICOLASA Comment:Testing performed by : [address] [address] Basophil abs 0.1 0.0 - 0.1 K/cumm NICOLASA Comment:Testing performed by : [address] [address] Neutrophil pct 83.4 % [facility] Comment: Interpretive Data Percent cell count reference ranges are not reported, since discordance with absolute values may lead to misinterpretation of CBC data. Current Interpretive Data was last revised on 2017. Testing performed by: [address] [address] Imm gran pct 2.1 % [facility] Comment: Interpretive Data Percent cell count reference ranges are not reported, since discordance with absolute values may lead to misinterpretation of CBC data. Current Interpretive Data was last revised on 2017. Testing performed by: [address] [address] Lymphocyte pct 6.6 % [facility] Comment: Interpretive Data Percent cell count reference ranges are not reported, since discordance with absolute values may lead to misinterpretation of CBC data. Current Interpretive Data was last revised on 2017. Testing performed by: [address] [address] Monocyte pct 7.4 % [facility] Comment: Interpretive Data Percent cell count reference ranges are not reported, since discordance with absolute values may lead to misinterpretation of CBC data. Current Interpretive Data was last revised on 2017. Testing performed by: [address] [address] Eosinophil pct 0.2 % [facility] Comment: Interpretive Data Percent cell count reference ranges are not reported, since discordance with absolute values may lead to misinterpretation of CBC data. Current Interpretive Data was last revised on 2017. Testing performed by: [address] [address] [address] Basophil pct 0.3 % NICOLASA SANTILLAN Comment: Interpretive Data Percent cell count reference ranges are not reported, since discordance with absolute values may lead to misinterpretation of CBC data. Current Interpretive Data was last revised on 2017. Testing performed by: [address] [address] Blood 05/12/2024 1:34 PM OCCUPATIONAL HEALTH NURSE MANAGER 05/12/2024 1:43 PM OCCUPATIONAL HEALTH NURSE MANAGER [facility]AL[facility] LAB BLOOD ORDERABLES Final Resu lt Performing Organization Address [facility] Co de Phone Number [address] [place] [address] * Sepsis Lactate w/ Reflex (05/12/2024 1:34 PM OCCUPATIONAL HEALTH NURSE MANAGER) [facility] Sepsis Lactate 2.0 0.7 - 2.0 mmol/L Comment:Testing performed by : [address] [address] Blood 05/12/2024 1:34 PM OCCUPATIONAL HEALTH NURSE MANAGER 05/12/2024 1:43 PM OCCUPATIONAL HEALTH NURSE MANAGER [facility] LAB BLOOD ORDERABLES Final Resu lt Performing Organization Address [facility] Co de Phone Number [id number] [place] [address] * (ABNORMAL) CBC with auto differential (05/12/2024 1:34 PM OCCUPATIONAL HEALTH NURSE MANAGER) Pathologist [facility] WBC 24.9(H) 3.8 - 9.9 K/cumm Comment:Testing performed by : [address] [address] Hgb 9.4(L) 13.0 - 17.5 g/dL NICOLASA SANTILLAN Comment:Testing performed by : [address] [address] Hct 27.9(L) 38.9 - 50.3 % NICOLASA SANTILLAN Comment:Testing performed by : [address] [address] Plt 336 150 - 400 K/cumm NICOLSAA SANTILLAN Comment:Testing performed by : [address] [address] MPV 10.0 9.1 - 12.3 fL NICOLASA SANTILLAN Comment:Testing performed by : [address] [address] RBC 3.26(L) 4.30 - 5.80 M/cumm NICOLASA SANTILLAN Comment:Testing performed by : [address] [address] MCV 85.6 81.3 - 96.4 fL NICOLASA SANTILLAN Comment:Testing performed by : [address] [address] MCH 28.8 27.1 - 33.3 pg NICOLASA SANTILLAN Comment:Testing performed by : [address] [address] MCHC 33.7 32.3 - 35.7 g/dL NICOLASA SANTILLAN Comment:Testing performed by : [address] [address] RDW CV 13.5 11.1 - 14.9 % NICOLASA Comment:Testing performed by : [address] [address] RDW SD 42.4 35.7 - 48.1 fL NICOLASA SANTILLAN Comment:Testing performed by : [address] [address] NRBC abs 0.00 0.00 - 0.01 K/cumm NICOLASA SANTILLAN Comment:Testing performed by : [address] [address] Blood 05/12/2024 1:34 PM OCCUPATIONAL HEALTH NURSE MANAGER 05/12/2024 1:43 PM OCCUPATIONAL HEALTH NURSE MANAGER [facility] Jorge GALVAN LAB BLOOD ORDERABLES Final Resu lt NICOLASA SANTILLAN [address] [facility] [place] [address] documented in this encounter Visit Diagnoses Diagnosis Cellulitis of left lower extremity- Primary Acute kidney injury (HCC) Sepsis, due to unspecified organism, unspecified whether acute organ dysfunction present (HCC) documented in this encounter Administered Medications Inactive Administered Medications - up to 3 most recent administrations Medication Order MAR Action Action Date Dose Rate Site acetaminophen (TYLENOL) tablet 975 mg 975 mg (rounded from 1,000 mg), oral, Once, On Inna 05/12/24 at 1329, For 1 dose Given 05/12/2024 1:50 PM OCCUPATIONAL HEALTH NURSE MANAGER 975 mg cefepime (MAXIPIME) 1,000 mg in sodium chloride 0.9% 100 mL IVPB 1,000 mg, intravenous, at 200 mL/hr, Administer over 30 Minutes, Every 6 hours scheduled, First dose on Thu05/13/24 at 1300, Mini-Bag Plus bag, Indications: Skin/Soft Tissue InfectionIndications:Skin/So ft Tissue Infection New Bag 05/13/2024 1:11 PM OCCUPATIONAL HEALTH NURSE MANAGER 1,000 mg 200 mL/hr cefepime (MAXIPIME) 2,000 mg in sodium chloride 0.9% 100 mL IVPB 2,000 mg, intravenous, at 200 mL/hr, Administer over 30 Minutes, Once, On Inna 05/12/24 at 1429, For 1 dose, Mini-Bag Plus bag, Indications: Bone/Joint InfectionIndications:Bone/Mariposa int Infection New Bag 05/12/2024 2:40 PM OCCUPATIONAL HEALTH NURSE MANAGER 2,000 mg 200 mL/hr cefepime (MAXIPIME) 2,000 mg in sodium chloride 0.9% 100 mL IVPB 2,000 mg, intravenous, at 200 mL/hr, Administer over 30 Minutes, Once, On Thu05/13/24 at 0722, For 1 dose, Mini-Bag Plus bag, Indications: Skin/Soft Tissue InfectionIndications:Skin/So ft Tissue Infection New Bag 05/13/2024 7:43 AM OCCUPATIONAL HEALTH NURSE MANAGER 2,000 mg 200 mL/hr metroNIDAZOLE (FLAGYL) 500 mg/100 mL in sodium chloride (premix) 500 mg 500 mg, intravenous, at 200 mL/hr, Administer over 30 Minutes, Once, On Inna 05/12/24 at 1429, For 1 dose, Room temperature only, Indications: Bone/Joint InfectionIndications:Bone/Mariposa int Infection New Bag 05/12/2024 3:02 PM OCCUPATIONAL HEALTH NURSE MANAGER 500 mg 200 mL/hr metroNIDAZOLE (FLAGYL) 500 mg/100 mL in sodium chloride (premix) 500 mg 500 mg, intravenous, at 200 mL/hr, Administer over 30 Minutes, Every 8 hours scheduled, First dose on Thu05/13/24 at 0723, Room temperature only, Indications: Skin/Soft Tissue InfectionIndications:Skin/So ft Tissue Infection [facility] 05/13/2024 1:12 PM OCCUPATIONAL HEALTH NURSE MANAGER 500 mg 200 mL/hr [facility] 05/13/2024 8:26 AM OCCUPATIONAL HEALTH NURSE MANAGER 500 mg 200 mL/hr ondansetron (ZOFRAN) injection 4 mg 4 mg, intravenous, Administer over 2 Minutes, Once, On Thu05/13/24 at 0802, For 1 dose Given 05/13/2024 8:07 AM OCCUPATIONAL HEALTH NURSE MANAGER 4 mg sodium chloride 0.9% bolus 2,000 mL 2,000 mL, intravenous, at 2,000 mL/hr, Administer over 1 Hours, Once, On [facility] 05/12/24 at 1329, For 1 dose [facility] 05/12/2024 1:49 PM OCCUPATIONAL HEALTH NURSE MANAGER 2,000 mL 2000 mL/hr vancomycin 1500 mg/250 mL in sodium chloride 0.9% (premix) 1,500 mg 1,500 mg, intravenous, Administer over 90 Minutes, Every 12 hours, First dose on Thu05/13/24 at 2000, Indications: Skin/Soft Tissue InfectionIndications:Skin/Soft Tissue Infection vancomycin 2,000 mg/520 mL in sodium chloride 0.9% (premix) 2,000 mg 2,000 mg, intravenous, Administer over 120 Minutes, Once, On Thu05/13/24 at 0800, For 1 dose, Indications: Skin/Soft Tissue InfectionIndications:Skin/Soft Tissue Infection [facility] 05/13/2024 9:21 AM OCCUPATIONAL HEALTH NURSE MANAGER 2,000 mg vancomycin 2,500 mg/525 mL in sodium chloride 0.9% (premix) 2,500 mg 2,500 mg, intravenous, Administer over 180 Minutes, Once, On Inna 05/12/24 at 1330, For 1 dose, Indications: Bone/Joint InfectionIndications:Bone/Joint Infection [facility] 05/12/2024 3:42 PM OCCUPATIONAL HEALTH NURSE MANAGER 2,500 mg documented in this encounter Discontinued Medications Medication Sig Discontinue Reason Start Date End Da te calcium carbonate (OS-KRISTY) 1,250 mg (500 mg elemental) tabletIndications:hypo calcemia Take 1 tablet (1,250 mg total) by mouth 2 (two) times a day Therapy completed 03/25/2023 05/13/2024 clotrimazole 1 % cream APPLY TO THE AFFECTED AND SURROUNDING AREAS OF SKIN BY TOPICAL ROUTE 2 TIMES PER DAY IN THE MORNING AND EVENING 02/03/2024 05/13/2024 cyanocobalamin (Vitamin B-12) 1,000 mcg/mL injection 05/13/2024 famotidine (PEPCID) 40 mg tablet Take 1 tablet (40 mg total) by mouth nightly 09/02/2023 05/13/2024 fluconazole (DIFLUCAN) 200 mg tablet 03/25/2023 05/13/2024 mupirocin (BACTROBAN) 2 % ointment 04/28/2023 05/13/2024 promethazine (PHENERGAN) 25 mg tablet 07/10/2023 05/13/2024 SSD 1 % cream APPLY A 1/16 INCH (1.5 MM) THICK LAYER TO ENTIRE BURN AREA BY TOPICAL ROUTE 2 TIMES PER DAY 02/09/2024 05/13/2024 tirzepatide (Mounjaro) 2.5 mg/0.5 mL pen injectorIndications:Ty pe 2 diabetes mellitus with hyperglycemia, with long-term current use of insulin (HCC) Inject 0.5 mL (2.5 mg total) under the skin every 7 days 02/17/2024 05/13/2024 traMADoL (ULTRAM) 50 mg tablet 03/02/2023 05/13/2024 documented as of this encounter Historical Medications * This list may reflect changes made after this encounter. ibuprofen 200 mg tab/cap Take 2 tablet/capsul e (400 mg total) by mouth every 6 (six) hours as needed for pain added in this encounter Active and Recently Administered Medications Times are shown in OCCUPATIONAL HEALTH NURSE MANAGER. Scheduled Medication Order 05/11/2024 05/12/2024 05/13/2024 acetaminophen (TYLENOL) tablet 975 mg (COMPLETED) 975 mg (rounded from 1,000 mg), oral, Once, On Inna 05/12/24 at 1329, For 1 dose 1350 (Given - Provider: Tate Allen) cefepime (MAXIPIME) 1,000 mg in sodium chloride 0.9% 100 mL IVPB 1,000 mg, intravenous, at 200 mL/hr, Administer over 30 Minutes, Every 6 hours scheduled, First dose on Thu05/13/24 at 1300, Mini-Bag Plus bag, Indications: Skin/Soft Tissue Infection 1311 (New Bag - Provider: Bre Fernández, ARYAN)1350 (Stopped - Provider: Bre Fernández, RN) cefepime (MAXIPIME) 2,000 mg in sodium chloride 0.9% 100 mL IVPB (COMPLETED) 2,000 mg, intravenous, at 200 mL/hr, Administer over 30 Minutes, Once, On Inna 05/12/24 at 1429, For 1 dose, Mini-Bag Plus bag, Indications: Bone/Joint Infection 1440 (New Bag - Provider: Clara Barger RN)1503 (Stopped - Provider: Clara Barger, ARYAN) cefepime (MAXIPIME) 2,000 mg in sodium chloride 0.9% 100 mL IVPB (COMPLETED) 2,000 mg, intravenous, at 200 mL/hr, Administer over 30 Minutes, Once, On Thu05/13/24 at 0722, For 1 dose, Mini-Bag Plus bag, Indications: Skin/Soft Tissue Infection 0743 (New Bag - Provider: Naima Bedoya RN)0815 (Stopped - Provider: Ila Myers, ARYAN) metroNIDAZOLE (FLAGYL) 500 mg/100 mL in sodium chloride (premix) 500 mg (COMPLETED) 500 mg, intravenous, at 200 mL/hr, Administer over 30 Minutes, Once, On Inna 05/12/24 at 1429, For 1 dose, Room temperature only, Indications: Bone/Joint Infection 1502 (New Bag - Provider: Clara Baregr RN)1546 (Stopped - Provider: Tate Allen) metroNIDAZOLE (FLAGYL) 500 mg/100 mL in sodium chloride (premix) 500 mg 500 mg, intravenous, at 200 mL/hr, Administer over 30 Minutes, Every 8 hours scheduled, First dose on Thu05/13/24 at 0723, Room temperature only, Indications: Skin/Soft Tissue Infection 0826 (New Bag - Provider: Naima Bedoya RN)0900 (Stopped - Provider: Ila Myers RN)1312 (New Bag - Provider: Bre Fernández RN)1350 (Stopped - Provider: Bre Fernández RN) ondansetron (ZOFRAN) injection 4 mg (COMPLETED) 4 mg, intravenous, Administer over 2 Minutes, Once, On Thu05/13/24 at 0802, For 1 dose 0807 (Given - Provid er: Naima Bedoya RN) sodium chloride 0.9% bolus 2,000 mL (COMPLETED) 2,000 mL, intravenous, at 2,000 mL/hr, Administer over 1 Hours, Once, On Inna 05/12/24 at 1329, For 1 dose 1349 (New Bag - Provider: Tate Allen)1545 (Stopped - Provider: Tate Allen) vancomycin 1500 mg/250 mL in sodium chloride 0.9% (premix) 1,500 mg 1,500 mg, intravenous, Administer over 90 Minutes, Every 12 hours, First dose on Thu05/13/24 at 2000, Indications: Skin/Soft Tissue Infection vancomycin 2,000 mg/520 mL in sodium chloride 0.9% (premix) 2,000 mg (COMPLETED) 2,000 mg, intravenous, Administer over 120 Minutes, Once, On Thu05/13/24 at 0800, For 1 dose, Indications: Skin/Soft Tissue Infection 0921 (New Bag - Provider: Bre Fernández RN)1230 (Stopped - Provider: Bre Fernández RN) vancomycin 2,500 mg/525 mL in sodium chloride 0.9% (premix) 2,500 mg (COMPLETED) 2,500 mg, intravenous, Administer over 180 Minutes, Once, On Inna 05/12/24 at 1330, For 1 dose, Indications: Bone/Joint Infection 1542 (New Bag - Provider: Tate Allen)1906 (Stopped - Provider: Jordi Alcocer RN) documented in this encounter Orders Medications Ordered That Steffen ht Not Have Been Administered Count Last Ordered Date First Ordered Date vancomycin 1500 mg/250 mL in sodium chloride 0.9% (premix) 1,500 mg 1 05/13/2024 piperacillin-tazobactam (ZOS YN) 4.5 g in sodium chloride 0.9% 100 mL IVPB 1 05/12/2024 Lab Orders Without Results Count Last Ordered D ate First Ordered Date POCT GLUCOSE DEVICE 4 05/13/2024 05/12/20 24 Nursing Count Last Ordered Date First Orde red Date MISCELLANEOUS NURSING CARE ORDER (SPECIFY) 1 05/12/2024 documented in this encounter Care Teams Senior Accounting Clerk Relationship Specialty Start Date End Date Mary Platt MD [address] [id number] PCP - General Tier And Detonator 02/17/24 documented as of this encounter
--- OUTSIDE RECORDS SUMMARY | 2024-06-08 00:06 | XMS_ITS | Encounter Summary ---
Author Organization [facility] Healthcare Address [address] [place] [address] Care Team Providers Care Supervisor Cabinetmaker Name Role Phone Herb Burden MD Primary Care Provider + [phone] Carissa Cancino CONTAINER WASHER MACHINE Unavailable [phone] Reason for Visit * Reason Comments Successfully Completed Encounter Details Date Type Department Care Team (Late st Contact Info) Description 04/03/2023 SHOP/CHAP Subsequent Outreach [facility] OP CASE MANAGEMENT [address] [place] [phone] Carissa Cancino, CONTAINER WASHER MACHINE [address] [facility] ([facility] Mailstop [phone] [place] [address] Social History Tobacco Use Types Packs/Day Years Used Date Smoking Tobacco: Never [facility] Utilities Answer Date Recorded In the past 12 months has [employer] electric, gas, oil, or water company threatened [...] often do you attend chur ch or confucianism services? Never 03/31/2023 Do you belong to any clubs o r organizations such as scientologist groups, unions, fraternal or athletic groups, or [...] place to sleep or slept in a custodial (including now)? Yes 03/31/2023 Personal Safety Answer Date Recorded Have you ever been in or are you currently in a harmful physical or emotional relationship or is someone making you feel afraid or unsafe? Denies 03/25/2023 Sex and Gender Information Value Date Recorded Sex Assigned at Not on file Legal Sex Male 7:12 PM CLINICAL ENGINEER Gender Identity Not on file Sexual Orientation Not on file documented as of this encounter Progress Notes * Carissa Cancino LCSW - 04/03/2023 9:34 AM CDT OCM spoke with pt via telephone. Pt saw his PCP on 04/01. HH is scheduled for SOC on 04/05. Pt reports he has contractors coming out to the house next week. His goal is to get the house fixed up so that he can move back in and bring his mother home from the SNF. Pt reports it is stressful to be dealing with the housing issues and his health issues at the same time. Pt reports he does not have a lot of support. Pt reports he has been a loner for most of his life. We discussed pt's medication regimen and acceptable range for blood sugar. Pt reports he has been taking his medications consistently. Pt reports he is trying to get in the habit of keeping a blood sugar log. Pt's appointment with En docrinology is not until September of next year. OCM encouraged pt to speak with his PCP about a referral to an outside Human Factors Ergonomist. Pt does not have any other questions at this time. OCM will continue to follow. documented in this encounter Plan of Treatment Not on file documented as of this encounter Visit Diagnoses Not on filedocumented in this encounter Care Teams Supervisor Cabinetmaker Relationship Specialty Start Date End Date Herb Burden MD [address] [id number] PCP - General Family Practice 03/25/23 07/27/23 Carissa Cancino LCSW [address] [facility] ([facility] Mailstop [phone] [place] [address] SHOP Outpatient Janitor Helper 03/31/23 04/21/23 documented as of this encounter
--- OUTSIDE RECORDS SUMMARY | 2024-06-08 00:06 | XMS_ITS | Encounter Summary ---
Author Organization [facility] Healthcare Address [address] [place] [address] Care Team Providers Care Margin Clerk Name Role Phone Herb Burden MD Primary Care Provider + [phone] Carissa Cancino BOTTOM TURNING LATHE TENDER Unavailable [phone] Reason for Visit * Auth/Cert (Routine) Specialty Diagnoses / Procedures Referred By Contjacqui t Referred To Contact Referral ID Status Reason Start Date Expiration Date Visits Re quested Visits Authorized [id number] 1 1 Encounter Details Date Type Department Care Team (Late Contact Info) Description 04/07/2023 11:00 AM CDT Home Care Visit [facility] [address] [address] [address] [place] [address] Smiley Chan RN SN HOME VISIT Social [...] materials from doctor or pharmacy Never 04/05/2023 [facility] Utilities Answer Date Recorded In the past [...] often do you attend chur ch or yazidi services? Never 03/31/2023 Do you belong to any clubs o r organizations such as mormonism groups, unions, fraternal or athletic groups, or [...] place to sleep or slept in a half-way (including now)? Yes 03/31/2023 Personal Safety Answer Date Recorded Have you ever been in or are you currently in a harmful physical or emotional relationship or is someone making you feel afraid or unsafe? Denies 03/25/2023 Sex and Gender Information Value Date Recorded Sex Assigned at Not on file Legal Sex Male 7:[address] Gender Identity Not on file Sexual Orientation Not on file documented as of this encounter Last Filed Vital Signs Vital Sign Reading Time Taken Comments Blood Pressure 148/85 04/07/2023 11:55 AM CDT Pulse 83 04/07/2023 11:55 AM CDT Temperature 36.4 ??C (97.5 ??F) 04/07/2023 11:55 AM C DT Respiratory Rate 18 04/07/2023 11:55 AM CDT Oxygen Saturation 95% 04/07/2023 11:55 AM CDT Inhaled Oxygen Concentration - - Weight - - Height - - Body Mass Index - - documented in this encounter Miscellaneous Notes * Home Health Plan for Next Visit - Smiley Chan RN - 04/07/2023 11:23 AM CDT Reason for today's visit wound care Discuss plan of care with patient Discharge planning ongoing Plan for next visit wound care documented in this encounter Plan of Treatment Not on file documented as of this encounter Visit Diagnoses Not on filedocumented in this encounter Home Health Visit - Care Plan Visit Details Visit Type -SN Home Visit Discipline -Senior Care Problems Problem Description Start Date Status Goals Interve ntions Homebound Status Disciplines: Skilled Disciplines Patient's homebound status 04/05/2023 Active 1 goal linked to scheduled/documen bridgette intervention 1 goal intervention scheduled/documen bridgette in this visit Medications Disciplines: Senior Care Management of home medications 04/05/2023 Active 1 goal linked to scheduled/documen bridgette intervention 2 goal interventions scheduled/documen bridgette in this visit Monitor patient's vital signs every home health visit Disciplines: SN, PT, OT, HOME BASED ASSISTANT, DISTILLERY LABORER, Skilled Disciplines Monitor patient's vital signs every [...] visit during episode of care Description: Home propulsion machinery service engineer to measure vital signs during every home [...] warmth. Problem:Infection Prevention Goal:Verbalize signs of infection Scheduled Instruct Fall Prevention Description: Instruct patient in [...] 04/01/23 Problem:Wound Care Goal:Progression towards healing Completed Clinician performed wound care per Physician's order dated 04/05/23 Perform dressing change Description: Perform dressing change: [...] Clinician performed wound care per Physician's order dated 04/05/23 documented in this encounter Care Teams Margin Clerk Relationship Specialty Start Date End Date Herb Burden MD [address] [facility] [address] [place] [address] PCP - General Family Practice 03/25/23 07/27/23 Carissa Cancino, BOTTOM TURNING LATHE TENDER [address] [facility] ([facility]) Mailstop [phone] [place] [address] SHOP Outpatient Deckhand Sponge Boat 03/31/23 04/21/23 documented as of this encounter
--- OUTSIDE RECORDS SUMMARY | 2024-06-08 00:06 | XMS_ITS | Encounter Summary ---
Author Organization [facility] Healthcare Address [address] [place] [address] Care Team Providers Care Press Cutter Name Role Phone Herb Burden MD Primary Care Provider + [phone] Reason for Visit * Reason Comments Successfully Completed Encounter Details Date Type Department Care Team (Late st Contact Info) Description 04/22/2023 SHOP/CHAP Subsequent Outreach [facility] OP CASE MANAGEMENT [address] [place] [phone] Carissa Cancino, [facility] [address] [facility] ([facility]) Mailstop [phone] [place], [place] [phone] Social History Tobacco Use Types Packs/Day Years [...] materials from doctor or pharmacy Never 04/05/2023 [facility] Utilities Answer Date Recorded In the past 12 months has e [employer], gas, oil, or water company threatened to [...] often do you attend chur ch or mandaen services? Never 03/31/2023 Do you belong to any clubs o r organizations such as mandaen groups, unions, fraternal or athletic groups, or [...] place to sleep or slept in a assisted (including now)? Yes 03/31/2023 Personal Safety Answer Date Recorded Have you ever been in or are you currently in a harmful physical or emotional relationship or is someone making you feel afraid or unsafe? Denies 03/25/2023 Sex and Gender Information Value Date Recorded Sex Assigned at Not on file Legal Sex Male 7:12 PM FORENSIC SCIENTIST Gender Identity Not on file Sexual Orientation Not on file documented as of this encounter Progress Notes * Carissa Cancino LCSW - 04/22/2023 10:30 AM CST OCM spoke with pt via telephone. Pt reports he and his mother moved back into their house as of 04/15. Pt reports he had to complete his annual renewal for Medicaid and chose a [facility] Medicaid plan that will start on 05/08. Pt reports he had to [place] a new [place]. Pt's new PCP will be a Dr. Luis Daniel Garibay in [place], [place]. Pt plans to go intoDr. Burden's office this week to get labs done. He will also see if Dr. Burden is able to see him before pt switches to new insurance plan and PCP on 05/08. Pt does not have any other questions at this time. OCM encouraged pt to reach out in the future with any needs. Episode resolved. NSIC SCIENTIST documented in this encounter Plan of Treatment Not on file documented as of this encounter Visit Diagnoses Not on filedocumented in this encounter Care Teams Press Cutter Relationship Specialty Start Date End Date Herb Burden MD [address] [phone] PCP - General Family Practice 03/25/23 07/27/23 documented as of this encounter
--- OUTSIDE RECORDS SUMMARY | 2024-06-08 00:06 | XMS_ITS | Encounter Summary ---
Author Organization [facility] Healthcare Address [address] [place] [address] Care Team Providers Care Computer Information Systems Instructor Name Role Phone Herb Burden MD Primary Care Provider + [phone] Carissa Cancino SHIFT SUPERVISOR RN Unavailable [phone] Reason for Visit * Reason Comments Successfully Completed Encounter Details Date Type Department Care Team (Late st Contact Info) Description 04/08/2023 SHOP/CHAP Subsequent Outreach [facility] OP CASE MANAGEMENT [address] [place] [id number] Carissa Cancino, SHIFT SUPERVISOR RN [address] [facility] ([facility] Mailstop [phone] [place] [address] Social History Tobacco Use Types [...] materials from doctor or pharmacy Never 04/05/2023 [facility] Utilities Answer Date Recorded In [...] often do you attend chur ch or lutheran services? Never 03/31/2023 Do you belong to any clubs o r organizations such as shinto groups, unions, fraternal or athletic groups, or [...] place to sleep or slept in a snf (including now)? Yes 03/31/2023 Personal Safety Answer Date Recorded Have you ever been in or are you currently in a harmful physical or emotional relationship or is someone making you feel afraid or unsafe? Denies 03/25/2023 Sex and Gender Information Value Date Recorded Sex Assigned at Not on file Legal Sex Male 7:12 PM POT ROOM TAPPER Gender Identity Not on file Sexual Orientation Not on file documented as of this encounter Progress Notes * Carissa Cancino LCSW - 04/08/2023 12:55 PM CDT OCM spoke with pt via telephone. Pt has been receiving home health services. He is looking forward to having this visits at home versus in a hotel room. Pt reports his house should be fixed up by the end of the week. He is looking forward to moving himself and his mother back into the home. Pt is inquiring about a sliding scale for his insulin regimen. Per chart review, pt was not on a sliding scale regimen at discharge. OCM encouraged pt to discuss this further with his PCP. Pt reportshe needs to go in and get labs done but is going to wait until after he gets himself and his mothersettled back into their home. Pt reports he will discuss with his PCP then. He also plans to ask for referrals to Endocrinology and Podiatry. OCM encouraged pt to discuss his diabetes regimen with the HH RN at his scheduled visit tomorrow. The HH RN can then reach out to pt's PCP to discuss further. Pt does not have any other questions at this time. OCM will continue to follow. documented in this encounter Plan of Treatment Not on file documented as of this encounter Visit Diagnoses Not on filedocumented in this encounter Care Teams Computer Information Systems Instructor Relationship Specialty Start Date End Date Herb Burden MD [address] [phone] PCP - General Family Practice 03/25/23 07/27/23 Carissa Cancino, SHIFT SUPERVISOR RN [address] [facility] ([facility] Mailstop [phone] [place] [address] SHOP Outpatient Coil Cutter 03/31/23 04/21/23 documented as of this encounter
--- OUTSIDE RECORDS SUMMARY | 2024-06-08 00:06 | XMS_ITS | Encounter Summary ---
Author Organization [facility] Healthcare Address [address] [place] [address] Care Team Providers Care Flight Test Shop Mechanic Name Role Phone Herb Burden MD Primary Care Provider + [phone] Reason for Visit * Auth/Cert (Routine) Specialty Diagnoses / Procedures Referred By Padmini t Referred To Contact Referral ID Status Reason Start Date Expiration Date Visits Re quested Visits Authorized [id number] 1 1 Encounter Details Date Type Department Care Team ([facility] Contact Info) Description 05/06/2023 9:00 AM COSTUMED CHARACTER ENTERTAINER Home Care Visit [facility] Health [place] [address] [address] [place] [address] Smiley Chan RN SN OASIS DISCHARGE Social History Tobacco Use Types Packs/Day Years [...] materials from doctor or pharmacy Never 05/06/2023 [facility] Utilities Answer Date Recorded In the past 12 months has th e [employer], gas, oil, or water company threatened to [...] often do you attend chur ch or caodaism services? Never 03/31/2023 Do you belong to any clubs o r organizations such as hinduism groups, unions, fraternal or athletic groups, or [...] place to sleep or slept in a nursing home (including now)? Yes 03/31/2023 Personal Safety Answer Date Recorded Have you ever been in or are you currently in a harmful physical or emotional relationship or is someone making you feel afraid or unsafe? Denies 03/25/2023 Sex and Gender Information Value Date Recorded Sex Assigned at Not on file Legal Sex Male 7:12 PM COSTUMED CHARACTER ENTERTAINER Gender Identity Not on file Sexual Orientation Not on file documented as of this encounter Last Filed Vital Signs Vital Sign Reading Time Taken Comments Blood Pressure 154/82 05/06/2023 9:38 AM COSTUMED CHARACTER ENTERTAINER Pulse 89 05/06/2023 9:38 AM COSTUMED CHARACTER ENTERTAINER Temperature 36.6 ??C (97.9 ??F) 05/06/2023 9:38 AM CS T Respiratory Rate 18 05/06/2023 9:38 AM COSTUMED CHARACTER ENTERTAINER Oxygen Saturation 96% 05/06/2023 9:38 AM COSTUMED CHARACTER ENTERTAINER Inhaled Oxygen Concentration - - Weight - - Height - - Body Mass Index - - documented in this encounter Miscellaneous Notes * Home Health Plan for Next Visit - Smiley Chan RN - 05/06/2023 9:45 AM CST Reason for today's visit UMED CHARACTER ENTERTAINER documented in this encounter Plan of Treatment Not on file documented as of this encounter Visit Diagnoses Not on filedocumented in this encounter Home Health Visit - Care Plan Visit Details Visit Type -SN OASIS Dischar ge Discipline -Residential Problems Problem Description Start Date Status Goals Interve ntions Homebound Status Disciplines: Skilled Disciplines Patient's homebound status 04/05/2023 Active 1 goal linked to scheduled/documen bridgette intervention 1 goal intervention scheduled/documen bridgette in this visit Medications Disciplines: Residential Management of home medications 04/05/2023 Active 1 goal linked to scheduled/documen brigdette intervention 2 goal interventions scheduled/documen bridgette in this visit Monitor patient's vital signs every home health visit Disciplines: SN, PT, OT, STAFF VETERINARIAN, GRAPHICS ARTIST, Skilled Disciplines Monitor patient's vital signs every [...] visit during episode of care Description: Home radioactivity technician to measure vital signs during every home [...] Management No Progression towards healing Description: Wound #1 [...] 04/05/23 documented in this encounter Care Teams Flight Test Shop Mechanic Relationship Specialty Start Date End Date Herb Burden MD [address] [place] [phone] PCP - General Family Practice 03/25/23 07/27/23 documented as of this encounter
--- OUTSIDE RECORDS SUMMARY | 2024-06-08 00:06 | XMS_ITS | Encounter Summary ---
Author Organization [facility] Healthcare Address [address] [place] [address] Care Team Providers Care Solar Energy Specialist Name Role Phone Mary Platt MD Primary Care Provider [phone] Encounter Details Date Type Department Care Team (Late st Contact Info) Description 02/18/2024 Orders Only [facility] Medical Group Diabetes and Endocrinology [address] [place] [phone] ProviderKatie MD [address] [place], [place] [id number] Social History Tobacco Use Types Packs/Day Years [...] materials from doctor or pharmacy Never 05/06/2023 [facility] Utilities Answer Date Recorded In the past [...] week 03/31/2023 How often do you attend [facility] or nondenominational services? 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 Gender Identity Not on file Sexual Orientation Not on file documented as of this encounter Plan of Treatment Not on file documented as of this encounter Procedures Procedure Name Priority Date/Time Associated Diagnosis Comments DIABETES EYE EXAM Routine 10/13/2023 8:15 AM CDT COMPREHENSIVE METABOLIC PANEL Routine 09/17/2023 12:47 PM CDT documented in this encounter Results * DIABETES EYE EXAM (10/13/2023 8:15 AM CDT) us Historical Provider [facility] Edited Result - Final * (ABNORMAL) Comprehensive metabolic panel (09/17/2023 12:47 PM CDT) SCRIBED Sodium 140 136 - 145 mmol/L EXTERNAL LAB SCRIBED Potassium 3.8 3.5 - 4.5 mmol/L EXTERNAL LAB SCRIBED Chloride 108(A) 98 - 107 mmol/L EXTERNAL LAB SCRIBED Carbon Dioxide 26 22 - 29 mmol/L EXTERNAL LAB SCRIBED Anion Gap 6 6 - 16 mmol/L EXTERNAL LAB SCRIBED Urea Nitrogen (BUN) 18 7 - 26 mg/dl EXTERNAL LAB SCRIBED Creatinine 0.75 0.71 - 1.16 mg/dl EXTERNAL LAB SCRIBED Glucose 119(A) 70 - 115 mg/dl EXTERNAL LAB SCRIBED Calcium 9.6 8.4 - 10.2 mg/dl EXTERNAL LAB SCRIBED Bilirubin 0.5 0.2 - 1.2 mg/dl EXTERNAL LAB SCRIBED Plasma Protein 6.9 6.0 - 8.3 g/dl EXTERNAL LAB SCRIBED Albumin 3.6 3.4 - 5.0 g/dl EXTERNAL LAB SCRIBED Alkaline Phosphatase 84 40 - 150 Units/L EXTERNAL LAB SCRIBED Alanine Transaminase (ALT) 11 5 - 55 Units/L EXTERNAL LAB SCRIBED Aspartate Transaminase (AST) 12 5 - 34 Units/L EXTERNAL LAB SCRIBED eGFR in NonAfrican Afghan >90 >=90 - NA EXTERNAL LAB Blood 09/17/2023 12:4 7 PM CDT us Historical Provider LAB BLOOD ORDERABLES Edit ed Result - Final EXTERNAL LAB documented in this encounter Visit Diagnoses Not on filedocumented in this encounter Care Teams Solar Energy Specialist Relationship Specialty Start Date End Date Mary Platt MD [address] [address] PCP - General Forest Pathologist 02/17/24 documented as of this encounter
--- OUTSIDE RECORDS SUMMARY | 2024-06-08 00:06 | XMS_ITS | Encounter Summary ---
Author Organization [facility] Healthcare Address [address] [place] [address] Care Team Providers Care International Affairs Vice President Name Role Phone Herb Burden MD Primary Care Provider + [phone] Carissa Cancino INSPECTOR SCREEN PRINTING Unavailable [phone] Reason for Visit * Auth/Cert (Routine) Specialty Diagnoses / Procedures Referred By Contac t Referred To Contact Referral ID Status Reason Start Date Expiration Date Visits Re quested Visits Authorized [id number] 1 1 Encounter Details Date Type Department Care Team (Late Contact Info) Description 04/11/2023 9:00 AM CDT Home Care Visit [facility] Health [place] [address] [address] [place] [address] Mary Reddy RN SN HOME VISIT Social History Tobacco [...] doctor or pharmacy Never 04/05/2023 [facility] Utilities Answer Date Recorded In [...] often do you attend chur ch or mormon services? Never 03/31/2023 Do you belong to any clubs o r organizations such as evangelical groups, unions, fraternal or athletic groups, or [...] place to sleep or slept in a retirement (including now)? Yes 03/31/2023 Personal Safety Answer Date Recorded Have you ever been in or are you currently in a harmful physical or emotional relationship or is someone making you feel afraid or unsafe? Denies 03/25/2023 Sex and Gender Information Value Date Recorded Sex Assigned at Not on file Legal Sex Male 7:12 PM TYPING POOL SUPERVISOR Gender Identity Not on file Sexual Orientation Not on file documented as of this encounter Last Filed Vital Signs Vital Sign Reading Time Taken Comments Blood Pressure 138/88 04/11/2023 9:36 AM CDT Pulse 88 04/11/2023 9:36 AM CDT Temperature 36.5 ??C (97.7 ??F) 04/11/2023 9:36 AM CD T Respiratory Rate 20 04/11/2023 9:36 AM CDT Oxygen Saturation 98% 04/11/2023 9:36 AM CDT Inhaled Oxygen Concentration - - Weight - - Height - - Body Mass Index - - documented in this encounter Plan of Treatment Not on file documented as of this encounter Visit Diagnoses Not on filedocumented in this encounter Home Health Visit - Care Plan Visit Details Visit Type -SN Home Visit Discipline -Jail Problems Problem Description Start Date Status Goals Interve ntions Homebound Status Disciplines: Skilled Disciplines Patient's homebound status 04/05/2023 Active 1 goal linked to scheduled/documen bridgette intervention 1 goal intervention scheduled/documen bridgette in this visit Medications Disciplines: Jail Management of home medications 04/05/2023 Active 1 goal linked to scheduled/documen bridgette intervention 2 goal interventions scheduled/documen bridgette in this visit Monitor patient's vital signs every home health visit Disciplines: SN, PT, OT, DEVOPS CONSULTANT, IN HOME NANNY, Skilled Disciplines Monitor patient's vital signs every [...] visit during episode of care Description: Home pre billing clinician to measure vital signs during every [...] care setting Completed Patient is homebound due todecreased endurance and pain as evidinced by SOB and wound Instruct on drug interactions Description: Perform drug interaction screening and instruct patient on severe drug interactions. Notify MD of any severe interactions Problem:Medications Goal:Understand and follow medication therapy Completed Instruct on medication side effects Description: Instructws patient to monitor for side effects and adverse reactions Problem:Medications Goal:Understand and follow medication therapy Scheduled Monitor Vital Signs Description: Monitored blood pressure, pulse, oxygen saturation, respirations Problem:Monitor patient's vital signs every home health visit Goal:Measure vital signs during every home health visit during episode of care Completed Educate Patient on Infection Prevention Description: Instructed patient on signs and symptoms of infection IE: fever, odor, change in color, increased amount of drainage, purulent drainage, warmth. Problem:Infection Prevention Goal:Verbalize signs of infection Completed Instructed patient on signs and symptoms of infection IE: fever, odor, change in color, increased amount of drainage, purulent drainage, warmth. Assess safety Description: Assess patient safety Problem:Safety concerns Goal:Demonstrate use of safety precautions Completed Instruct Fall Prevention Description: Instruct patient in methods to prevent falls Problem:Safety concerns Goal:Demonstrate use of safety precautions Scheduled Instruct on pain management techniques Description: Assess pain and Instruct in pharmacologic and nonpharmacologic pain management techniques prn Problem:Pain Goal:Report that pain has been reduced or controlled Completed Educate on Wound Care Management Description: Instructed [...] Completed Instructed patient/caregiver on wound management including Education ordered wound care, utilizing clean technique, appropriate [...] care as follows: cleanse with Betadine. Leave FIELD GAUGER. Be sure to protect bed with towels or use bathtub and rinse tub after application. Patient is unable to see or reach area. Per Written Orders dr Maicol Burden 04/01/23 Problem:Wound Care Goal:Progression towards healing Completed Clinician performed wound care per Physician's order cleanse with Betadine. Leave FIELD GAUGER. Be sure to protect bed with towels or use bathtub and rinse tub after application. Patient is unable to see or reach area. Perform dressing change Description: Perform dressing change: [...] Clinician performed wound care per Physician's order cleanse with normal saline or wound cleanser, pat dry with gauze, apply skin barrier prep to alfredo wound area, apply Intra site gel to wound bed. cover with Allevyn foam bordered dressing. Secure area with kerlix. documented in this encounter Care Teams International Affairs Vice President Relationship Specialty Start Date End Date Herb Burden MD [address] [phone] PCP - General Family Practice 03/25/23 07/27/23 Carissa Cancino, CHRISTINA [facility] [facility] [place] Mailstop [phone] [place] [address] SHOP Outpatient Gate Watch 03/31/23 04/21/23 documented as of this encounter
--- OUTSIDE RECORDS SUMMARY | 2024-06-08 00:06 | XMS_ITS | Encounter Summary ---
Author Organization [facility] Healthcare Address [address] [place] [address] Care Team Providers Care Base Filler Operator Name Role Phone Herb Burden MD Primary Care Provider + [phone] Carissa Cancino ELECTRIC SHOVEL OPERATOR Unavailable [phone] Reason for Visit * Reason Comments Successfully Completed Encounter Details Date Type Department Care Team (Late st Contact Info) Description 04/15/2023 SHOP/CHAP Subsequent Outreach [facility] OP CASE MANAGEMENT 1 [place] [phone] Carissa Cancino, ELECTRIC SHOVEL OPERATOR [address] [facility] ([facility]) Mailstop [phone] [place] [address] Social History Tobacco Use Types [...] materials from doctor or pharmacy Never 04/05/2023 [facility] Utilities Answer Date Recorded In [...] often do you attend chur ch or adventist services? 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 Pt is currently visiting with his mother at her rehab facility. Ptis still waiting on the final approval to get himself and his mother moved back into their house. He is hoping that will happen in the next couple of days. He plans to go into his PCP's office after they get settled in to get labs done and discuss his diabetes regimen. Pt does not have any questions at this time. OCM will continue to follow. STRY FIRE AIDE documented in this encounter Plan of Treatment Not on file documented as of this encounter Visit Diagnoses Not on filedocumented in this encounter Care Teams Base Filler Operator Relationship Specialty Start Date End Date Herb Burden MD [address] [facility] [address] [place] [phone] PCP - General Family Practice 03/25/23 07/27/23 Carissa Cancino LCSW 45[address] [facility] ([facility]) Mailstop [phone] [place] [address] SHOP Outpatient Insurance Claims Assistant 03/31/23 04/21/23 documented as of this encounter
--- OUTSIDE RECORDS SUMMARY | 2024-06-08 00:06 | XMS_ITS | Encounter Summary ---
Author Organization [facility] Healthcare Address [address] [place] [address] Care Team Providers Care Pest Control Supervisor Name Role Phone Herb Burden MD Primary Care Provider + [phone] Carissa Cancino FRONT MAKER Unavailable [phone] Reason for Visit * Auth/Cert (Routine) Specialty Diagnoses / Procedures Referred By Contjacqui t Referred To Contact Referral ID Status Reason Start Date Expiration Date Visits Re quested Visits Authorized [id number] 1 1 Encounter Details Date Type Department Care Team (Late Contact Info) Description 04/17/2023 9:00 AM FINANCIAL SPECIALIST Home Care Visit [facility] Health [place] [address] [address] [place] [address] Smiley Chan RN SN HOME VISIT Social [...] materials from doctor or pharmacy Never 04/05/2023 [facility] Utilities Answer Date Recorded In [...] place to sleep or slept in a [facility] (including now)? Yes 03/31/2023 Personal Safety Answer Date Recorded Have you ever been in or are you currently in a harmful physical or emotional relationship or is someone making you feel afraid or unsafe? Denies 03/25/2023 Sex and Gender Information Value Date Recorded Sex Assigned at Not on file Legal Sex Male 7:12 PM FINANCIAL SPECIALIST Gender Identity Not on file Sexual Orientation Not on file documented as of this encounter Last Filed Vital Signs Vital Sign Reading Time Taken Comments Blood Pressure 148/80 04/17/2023 9:51 AM FINANCIAL SPECIALIST Pulse 86 04/17/2023 9:51 AM FINANCIAL SPECIALIST Temperature 36.6 ??C (97.9 ??F) 04/17/2023 9:51 AM CS T Respiratory Rate 18 04/17/2023 9:51 AM FINANCIAL SPECIALIST Oxygen Saturation 97% 04/17/2023 9:51 AM FINANCIAL SPECIALIST Inhaled Oxygen Concentration - - Weight - - Height - - Body Mass Index - - documented in this encounter Miscellaneous Notes * Home Health Plan for Next Visit - Smiley Chan RN - 04/17/2023 10:02 AM CST Reason for today's visit wound care Discuss plan of care with patient Discharge planning ongoing Plan for next visit wound care NCIAL SPECIALIST documented in this encounter Plan of Treatment Not on file documented as of this encounter Visit Diagnoses Not on filedocumented in this encounter Home Health Visit - Care Plan Visit Details Visit Type -SN Home Visit Discipline -Penitentiary Problems Problem Description Start Date Status Goals Interve ntions Homebound Status Disciplines: Skilled Disciplines Patient's homebound status 04/05/2023 Active 1 goal linked to scheduled/documen bridgette intervention 1 goal intervention scheduled/documen bridgette in this visit Medications Disciplines: Penitentiary Management of home medications 04/05/2023 Active 1 goal linked to scheduled/documen bridgette intervention 2 goal interventions scheduled/documen bridgette in this visit Monitor patient's vital signs every home health visit Disciplines: SN, PT, OT, IMPLEMENTATION DIRECTOR, LEASING MACHINE TENDER, Skilled Disciplines Monitor patient's vital signs every [...] visit during episode of care Description: Home psychiatric clinician to measure vital signs during every [...] Completed Instructed patient/caregiver on wound management including s/s/ of infection Perform dressing change Description: Perform dressing change: Site Wound #4 Scrotom incision SN to peform wound treatment as of 04/05/23 Frequency 3 times a week Wound care as follows: cleanse with Betadine. Leave EXECUTIVE CONSULTANT. Be sure to protect bed with towels [...] 04/05/23 documented in this encounter Care Teams Pest Control Supervisor Relationship Specialty Start Date End Date Herb Burden MD [address] [facility] [address] [place] [phone] PCP - General Family Practice 03/25/23 07/27/23 Carissa Cancino LCSW 4590 [facility] ([facility] Mailstop [phone] [place] [address] SHOP Outpatient Bunch Breaker Machine Operator 03/31/23 04/21/23 documented as of this encounter
--- OUTSIDE RECORDS SUMMARY | 2024-06-08 00:06 | XMS_ITS | Encounter Summary ---
Author Organization [facility] Healthcare Address [address] [place] [address] Care Team Providers Care Production Shift Supervisor Name Role Phone Herb Burden MD Primary Care Provider + [phone] Reason for Visit * Auth/Cert (Routine) Specialty Diagnoses / Procedures Referred By Padmini t Referred To Contact Referral ID Status Reason Start Date Expiration Date Visits Re quested Visits Authorized [id number] 1 1 Encounter Details Date Type Department Care Team ([facility] Contact Info) Description 04/22/2023 Home Care Visit [facility] [address] [place] [address] Anita Chávez, RN TELEPHONE ENCOUNTER Social History Tobacco Use Types Packs/Day Years [...] materials from doctor or pharmacy Never 04/05/2023 [facility] Utilities Answer Date Recorded In the past 12 months has e [employer], gas, oil, or water company threatened to [...] often do you attend chur ch or holiness services? Never 03/31/2023 Do you belong to any clubs o r organizations such as moravian groups, unions, fraternal or athletic groups, or [...] place to sleep or slept in a long term (including now)? Yes 03/31/2023 Personal Safety Answer Date Recorded Have you ever been in or are you currently in a harmful physical or emotional relationship or is someone making you feel afraid or unsafe? Denies 03/25/2023 Sex and Gender Information Value Date Recorded Sex Assigned at Not on file Legal Sex Male 7:12 PM TRAMPOLINE TEAM COACH Gender Identity Not on file Sexual Orientation Not on file documented as of this encounter Plan of Treatment Not on file documented as of this encounter Visit Diagnoses Not on filedocumented in this encounter Care Teams Production Shift Supervisor Relationship Specialty Start Date End Date Herb Burden MD [address] [facility] [address] [place] [address] PCP - General Family Practice 03/25/23 07/27/23 documented as of this encounter
--- OUTSIDE RECORDS SUMMARY | 2024-06-08 00:06 | XMS_ITS | Encounter Summary ---
Author Organization [facility] Healthcare Address [address] [place] [address] Care Team Providers Care Vice President Of Customer Service Name Role Phone Mary Platt MD Primary Care Provider [phone] Reason for Visit * Reason Comments Diabetes Type 2 Encounter Details Date Type Department Care Team ([facility] st Contact Info) Description 02/17/2024 3:00 PM CDT Office Visit [facility] Medical Group Diabetes and Endocrinology [address] [place] [id number] Natividad Mckeon JAVASCRIPT ENGINEER [id number] [facility] [address] [place], [place] [id number] Type 2 diabetes mellitus with hyperglycemia, with long-term current use of insulin (HCC) (Primary Dx); Hypertension associated with type 2 diabetes mellitus (HCC); Hyperlipidemia due to type 2 diabetes mellitus (HCC); Vitamin D deficiency Social History Tobacco Use Types Packs/Day Years [...] materials from doctor or pharmacy Never 05/06/2023 [facility] Utilities Answer Date Recorded In [...] often do you attend chur ch or confucianist services? 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 Gender Identity Not on file Sexual Orientation Not on file documented as of this encounter Last Filed Vital Signs Vital Sign Reading Time Taken Comments Blood Pressure 138/82 02/17/2024 2:52 PM CDT Pulse 94 02/17/2024 2:52 PM CDT Temperature - - Respiratory Rate 18 02/17/2024 2:52 PM CDT Oxygen Saturation - - Inhaled Oxygen Concentration - - Weight 181.9 kg (401 lb) 02/17/2024 2:52 PM CDT Height 198.1 cm (6' 5.99 ) 02/17/2024 2:52 PM CD T Body Mass Index 46.35 02/17/2024 2:52 PM CDT documented in this encounter Patient Instructions * Patient Instructions* Natividad Mckeon NP - 02/17/2024 3:00 PM CDT Please stop at lab before leaving to get Vitamin D level drawn. I'll send you a message in [employer] once received. Will continue ergocalciferol 50,000IU weekly if still low or will move to [id number] 2000IU daily if normal. -will change from Trulicity to Mounjaro 2.5mg weekly x 5 mg weekly. Current medications: Metformin 500mg twice daily before meals Mounjaro 2.5mg weekly x 4 weeks then increase 5mg weekly Lantus 20 units at bedtime Humalog 10 units 3 times daily before meals For blood sugars over 200: take 15 units documented in this encounter Ordered Prescriptions Prescription Sig Dispense Quantity Refills Last Filled Start Date End Date pen needle, diabetic 32 gauge x 5/32 needleIndications: Type 2 diabetes mellitus with hyperglycemia, with long-term current use of insulin (HCC) Use as directed 3 times a day. 100 each 3 02/17/2024 DexGamma Basics G7 Sensor deviceIndications: Type 2 diabetes mellitus with hyperglycemia, with long-term current use of insulin (HCC) Change sensor every 10 days 10 each 3 02/17/2024 atorvastatin (LIPITOR) 20 mg tabletIndications: Hyperlipidemia due to type 2 diabetes mellitus (HCC) Take 1 tablet (20 mg total) by mouth nightly 90 tablet 3 02/17/2024 5 metFORMIN (GLUCOPHAGE) 500 mg tabletIndications: Type 2 diabetes mellitus with hyperglycemia, with long-term current use of insulin (HCC) Take 1 tablet (500 mg total) by mouth 2 (two) times a day with meals 180 tablet 3 02/17/2024 5 tirzepatide (Mounjaro) 5 mg/0.5 mL pen injectorIndication s:type 2 diabetes mellitus Inject 5 mg under the skin every 7 days 6 mL 3 02/17/2024 5 tirzepatide (Mounjaro) 2.5 mg/0.5 mL pen injectorIndication s:Type 2 diabetes mellitus with hyperglycemia, with long-term current use of insulin (HCC) Inject 0.5 mL (2.5 mg total) under the skin every 7 days 2 mL 02/17/2024 4 pen needle, diabetic 32 gauge x 5/32 needleIndications: Type 2 diabetes mellitus with hyperglycemia, with long-term current use of insulin (HCC) Use as directed 3 times a day. 100 each 02/17/2024 4 documented in this encounter Progress Notes * Natividad Mckeon, JAVASCRIPT ENGINEER - 02/17/2024 3:00 PM CDT Images from the original note were not included. [facility] Diabetes Follow Up Visit Subjective/Objective Patient ID: Rene Hyatt is a 43 y.o. male who comes in today to our Endocrinology clinic to follow up for DM management. 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 Current medications: Metformin 500mg twice daily before meals Trulicity 3 mg weekly (1.5 filled 10/2023)--has not taken in 6-7 mos Lantus 20 units at bedtime--has not had in several weeks Humalog 10 units 3 times daily before meals For blood sugars over 200: take 15 units Dietary habits: 3 meals/day. Snacks throughout day (poor choices). Exercise routine: sedentary d/t BLE neuropathy, works in yard. Home CBG monitoring results: Dexcom G7. No hypoglycemia. He has been using Dexcom but having difficulty downloading report (our code is not working for him to share with us). BG Average: 203 mg/dl with: 12% very high 57% high 31% in target range 0% low. Overnight pattern: persistently hyperglycemic Postprandial pattern: persistently hyperglycemic Neuropathy: BLE above knees, above elbow . Gabapentin 300mg tid prn. Last foot exam: Today Statin therapy: Yes. Atorvastatin 20mg. Last lipid panel: 03/06/23 LDL=67, TG=93. Nephropathy: On DEBBI-I / ARB???s: Yes. Losartan 100mg. Last MA: 03/16/23 (44). Last creat/GFR: 09/17/23 GFR=>90, CR=0.75. Retinopathy: Date of last eye examination: none on record. Summer 2023 [facility] in [place]. Letter sent to get copy of report. Vitamin D deficiency: 03/23/23 found to have undetectable Vit D level. Was started on ergocalciferol 50,000IU weekly x 2 mos then to move to OTC 2000IU daily. No repeat Vitamin D levels found. Component Latest Ref Rng 03/08/2023 Vitamin D 25-OH 30 - 80 ng/mL <6 (L) Wt Readings from Last 3 Encounters: 02/17/24 (!) 181.9 kg (401 lb) 10/08/23 (!) 165.1 kg (364 lb) 03/06/23 (!) 161.7 kg (356 lb 7.7 oz) Labs: Last A1c: Recent Labs Lab Units 02/17/24 1456 HEMOGLOBIN A1C POC % 7.8 Component Latest Ref Rng 10/08/2023 Hgb A1C, POC % 6.3 Component Latest Ref Rng 03/06/2023 Hgb A1C 4.0 - 5.6 % 13.3 (H) BUN 7 - 26 mg/dL 18 Creatinine 0.71 - 1.16 mg/dL 0.75 Sodium 136 - 145 mmol/L 140 Potassium 3.5 - 4.5 mmol/L 3.8 Chloride 98 - 107 mmol/L 108 High CO2 22 - 29 mmol/L 26 Glucose 70 - 115 mg/dL 119 High Calcium 8.4 - 10.2 mg/dL 9.6 Protein Total 6.0 - 8.3 g/dL 6.9 Albumin 3.4 - 5.0 g/dL 3.6 Bilirubin Total 0.2 - 1.2 mg/dL 0.5 Alkaline Phosphatase 40 - 150 U/L 84 ALT 5 - 55 U/L 11 AST 5 - 34 U/L 12 Anion Gap 6 - 16 6 BUN/Creatinine Ratio 7 - 23 24 High Osmolality Calculated 275 - 295 mOsm/kg 293 Albumin/Globulin Ratio 1.1 - 2.3 1.1 eGFR by CKD-EPI >=90 mL/min/1.73 m2 >90 Resulting Agency [facility] Specimen Collected: 09/17/23 12:47 Lab Results Component Value Date ALBCREATRATU 44 (H) 03/16/2023 Lipid profile within the last year: Lab Results Component Value Date CHOL 106 03/06/2023 Lab Results Component Value Date TRIG 93 03/06/2023 Lab Results Component Value Date HDL 20 (L) 03/06/2023 Lab Results Component Value Date LDLCALC 67 03/06/2023 Vitals: 02/17/24 1452 BP: 138/82 BP Location: Right arm Patient Position: Sitting Pulse: 94 Resp: 18 Weight: (!) 181.9 kg (401 lb) Height: 198.1 cm (6' 5.99 ) Physical Exam Vitals and nursing note reviewed. Constitutional: Appearance: Normal appearance. He is well-developed. He is morbidly obese. HENT: Head: Normocephalic. Right Ear: Hearing normal. Left Ear: Hearing normal. Eyes: General: Lids are normal. Gaze aligned appropriately. Neck: Thyroid: No thyromegaly. Trachea: Trachea and phonation normal. No tracheal deviation. Cardiovascular: Rate and Rhythm: Normal rate and regular rhythm. No extrasystoles are present. Pulses: Dorsalis pedis pulses are 2+ on the right side and 2+ on the left side. Posterior tibial pulses are 2+ on the right side and 2+ on the left side. Heart sounds: Normal heart sounds, S1 normal and S2 normal. No murmur heard. Pulmonary: Effort: Pulmonary effort is normal. Breath sounds: Normal breath sounds and air entry. Feet: Right Foot: Monofilament exam: abnormal. Protective Sensation: 6 sites tested. 0 sites sensed. Skin Integrity: Positive for callus and dry skin. Negative for ulcer, blister, skin breakdown, erythema or warmth. Left Foot: Monofilament exam: abnormal. Protective Sensation: 6 sites tested. 0 sites sensed. Skin Integrity: Positive for callus and dry skin. Negative for ulcer, blister, skin breakdown, erythema or warmth. Skin: General: Skin is warm and dry. Neurological: Mental Status: He is alert and oriented to person, place, and time. Mental status is at baseline. Psychiatric: Mood and Affect: Mood normal. Behavior: Behavior normal. Assessment/Plan Diagnoses and all orders for this visit: Type 2 diabetes mellitus with hyperglycemia, with long-term current use of insulin (HCC) (Primary) Assessment & Plan: Chronic problem. Uncontrolled. A1c worsened from 6.3% [...] DM eye exam Summer 2023 [facility] in [place]. Letter sent to get copy of report. UTD on labs. Discussed with Rene Hyatt: Strive for regular exercise (30min most days) and diet (get at least 4-5 servings of fruit and veggies daily, avoid processed foods, increase lean protein intake and decrease carb portions as well asfruit juices, regular soda & desserts). Watch carbs and simple sugars. Check the blood sugar: Dexcom G7. Check the feet daily for skin breakdown and infection. Orders: - POCT hemoglobin A1c - POCT glucose - tirzepatide (Mounjaro) 5 mg/0.5 mL pen injector; Inject 5 mg under the skin every 7 days - metFORMIN (GLUCOPHAGE) 500 mg tablet; Take 1 tablet (500 mg total) by mouth 2 (two) times a day with meals - Dexcom G7 Sensor device; Change sensor every 10 days - pen needle, diabetic 32 gauge x needle; Use as directed 3 times a day. Hypertension associated with type 2 diabetes mellitus (HCC) Assessment & Plan: Chronic problem. Currently taking losartan 100mg daily, lasix 20mg daily Hyperlipidemia due to type 2 diabetes mellitus (HCC) Assessment & Plan: Chronic problem. At goal on current Atorvastatin 20mg. Last lipid panel: 03/06/23 LDL=67, TG=93. Orders: - atorvastatin (LIPITOR) 20 mg tablet; Take 1 tablet (20 mg total) by mouth nightly Vitamin D deficiency Assessment & Plan: Chronic problem. 03/23/23 found to have undetectable [...] D level today. Verified that he uses mychart. Aware to check results/results letterin [employer]. Will contact by phone if needed. Orders: - Vitamin D 25 hydroxy; Future Natividad Mckeon NP documented in this encounter Miscellaneous Notes * Assessment & Plan Note - Natividad Mckeon NP - 02/17/2024 4:05 PM CDT Associated Problem(s): Hyperlipidemia due to type 2 diabetes mellitus (HCC) Chronic problem. At goal on current Atorvastatin 20mg. Last lipid panel: 03/06/23 LDL=67, TG=93. * Assessment & Plan Note - Natividad Mckeon NP - 02/17/2024 3:30 PM CDT Associated Problem(s): Vitamin D deficiency Chronic problem. 03/23/23 found to have undetectable [...] D level today. Verified that he uses [employer]. Aware to check results/results letterin [employer]. Will contact by phone if needed. * Assessment & Plan Note - Natividad Mckeon NP - 02/17/2024 3:29 PM CDT Associated Problem(s): Hypertension associated with type 2 diabetes mellitus (HCC) Chronic problem. Currently taking losartan 100mg daily, lasix 20mg daily * Assessment & Plan Note - Natividad Mckeon NP - 02/17/2024 3:28 PM CDT Associated Problem(s): Type 2 diabetes mellitus with hyperglycemia, with long- term current use of insulin (HCC) Chronic problem. Uncontrolled. A1c worsened from 6.3% [...] DM eye exam Summer 2023 [facility] in [place]. Letter sent to get copy of report. UTD on labs. Discussed with Rene Hyatt: Strive for regular exercise (30min most days) and diet (get at least 4-5 servings of fruit and veggies daily, avoid processed foods, increase lean protein intake and decrease carb portions as well asfruit juices, regular soda & desserts). Watch carbs and simple sugars. Check the blood sugar: Dexcom G7. Check the feet daily for skin breakdown and infection. * Addendum Note - Elly Jalloh MA - 02/17/2024 3:00 PM CDTAddended by: ELLY JALLOH on: 02/17/2024 04:37 PM Modules accepted: Orders * Addendum Note - Natividad Mckeon NP - 02/17/2024 3:00 PM CDTAddended by: NATIVIDAD MCKEON on: 02/17/2024 05:00 PM Modules accepted: Orders documented in this encounter Plan of Treatment Not on file documented as of this encounter Procedures Procedure Name Priority Date/Time Associated Diagnosis Comments POCT HEMOGLOBIN A1C Routine 02/17/2024 2 :56 PM CDT Type 2 diabetes mellitus with hyperglycemia, with long-term current use of insulin (HCC) POCT GLUCOSE Routine 02/17/2024 2:56 PM CDT Type 2 diabetes mellitus with hyperglycemia, with long-term current use of insulin (HCC) documented in this encounter Results * Vitamin D 25 hydroxy (02/17/2024 4:11 PM CDT) Vitamin D 25-OH 44 30 - 80 ng/mL Blood 02/17/2024 4:11 PM CDT 02/17/2024 8:42 PM CDT us Natividad Mckeon NP LAB BLOOD ORDERABLES [facility]il[facility] Result [facility] [address] [address] Department [place] [address] * (ABNORMAL) POCT glucose (02/17/2024 2:56 PM CDT) Glucose Blood, POC 210 mg/dL Blood 02/17/2024 2:56 PM CDT Natividad Mckeon NP POINT OF CARE TEST ORDERA BLES Final Result * (ABNORMAL) POCT hemoglobin A1c (02/17/2024 2:56 PM CDT) Hemoglobin A1C, POC 7.8 4.0 - 5.6 % Blood 02/17/2024 2:56 PM CDT us Natividad Mckeon NP POINT OF CARE TEST ORDERA BLES Final Result documented in this encounter Visit Diagnoses Diagnosis Type 2 diabetes mellitus with hyperglycemia, with long-term current use of insulin (HCC)- Primary Hypertension associated with type 2 diabetes mellitus (HCC) Hyperlipidemia due to type 2 diabetes mellitus (HCC) Vitamin D deficiency documented in this encounter Discontinued Medications Medication Sig Discontinue Reason Start Date End Da te losartan (COZAAR) 25 mg tablet Take 1 tablet (25 mg total) by mouth daily Alternate therapy 03/26/2023 02/17/2024 losartan (COZAAR) 50 mg tablet Alternate therapy 07/02/2023 02/17/2024 dulaglutide (Trulicity) 3 mg/0.5 mL pen injectorIndications:Typ e 2 diabetes mellitus with hyperglycemia, with long-term current use of insulin (HCC) Inject 0.5 mL (3 mg total) under the skin every 7 days Alternate therapy 10/08/2023 02/17/2024 pen needle, diabetic (Pen Needle) 32 gauge x 5/32 needle Use as directed once a day. Duplicate order 03/25/2023 02/17/2024 TRUEplus Pen Needle 31 gauge x 3/16 needle USE WITH INSULIN PENS Duplicate order 08/17/202302/16 atorvastatin (LIPITOR) 20 mg tablet Take 1 tablet (20 mg total) by mouth nightly Reorder 03/25/2023 02/17/2024 pen needle, diabetic 32 gauge x 5/32 needle Use as directed 3 times a day. Duplicate order 03/25/2023 02/17/2024 metFORMIN (GLUCOPHAGE) 500 mg tabletIndications:Type 2 diabetes mellitus with hyperglycemia, with long-term current use of insulin (HCC) Take 1 tablet (500 mg total) by mouth 2 (two) times a day with meals Reorder 10/08/2023 02/17/2024 Dexcom G7 Sensor deviceIndications:Type 2 diabetes mellitus with hyperglycemia, with long-term current use of insulin (HCC) Change sensor every 10 days Reorder 10/08/2023 02/17/2024 pen needle, diabetic 32 gauge x 5/32 needleIndications:Type 2 diabetes mellitus with hyperglycemia, with long-term current use of insulin (HCC) Use as directed 3 times a day. Reorder 02/17/2024 02/17/2024 documented as of this encounter Historical Medications * This list may reflect changes made after this encounter. losartan (COZAAR) 100 mg tablet Take 1 tablet (100 mg total) by mouth daily 01/12/2024 loperamide (IMODIUM) 2 mg capsule Take 1 capsule by mouth 4 times per day as needed 11/10/2023 buPROPion SR (WELLBUTRIN SR) 150 mg 12 hr tablet Take 1 tablet (150 mg total) by mouth 2 (two) times a day 02/03/2024 SSD 1 % cream APPLY A 1/16 INCH (1.5 MM) THICK LAYER TO ENTIRE BURN AREA BY TOPICAL ROUTE 2 TIMES PER DAY 02/09/2024 4 clotrimazole 1 % cream APPLY TO THE AFFECTED AND SURROUNDING AREAS OF SKIN BY TOPICAL ROUTE 2 TIMES PER DAY IN THE MORNING AND EVENING 02/03/2024 4 added in this encounter Care Teams Vice President Of Customer Service Relationship Specialty Start Date End Date Mary Platt MD [address] [address] PCP - General Occupational Physician 02/17/24 documented as of this encounter
--- OUTSIDE RECORDS SUMMARY | 2024-06-08 00:06 | XMS_ITS | Encounter Summary ---
Author Organization [facility] Healthcare Address [address] [place] [address] Care Team Providers Care Copy Technician Name Role Phone Nguyễn Bingham MD Primary Care Provider [phone] Reason for Visit * Reason Comments Diabetes Type 2 Encounter Details Date Type Department Care Team (Late st Contact Info) Description 10/08/2023 1:30 PM CDT Office Visit [facility] Medical Group Diabetes and Endocrinology [address] [place] [phone] [place] [address] [facility] [address] [place], [place] [id number] Type 2 diabetes mellitus with hyperglycemia, with long-term current use of insulin (HCC) (Primary Dx) Social History Tobacco Use Types Packs/Day Years Used Date Smoking Tobacco: Never Tobacco Cessation:Counseling Given: Not Answered OASIS D0700: Social Isolation Answer Da te [...] materials from doctor or pharmacy Never 05/06/2023 [facility] Utilities Answer Date Recorded In the [...] often do you attend chur ch or faith services? Never 03/31/2023 Do you belong to any clubs o r organizations such as restorationism groups, unions, fraternal or athletic groups, or [...] place to sleep or slept in a skilled nursing (including now)? Yes 03/31/2023 Personal Safety Answer Date Recorded Have you ever been in or are you currently in a harmful physical or emotional relationship or is someone making you feel afraid or unsafe? 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 Gender Identity Not on file Sexual Orientation Not on file documented as of this encounter Last Filed Vital Signs Vital Sign Reading Time Taken Comments Blood Pressure 128/74 10/08/2023 1:29 PM CDT Pulse 88 10/08/2023 1:29 PM CDT Temperature - - Respiratory Rate 20 10/08/2023 1:29 PM CDT Oxygen Saturation - - Inhaled Oxygen Concentration - - Weight 165.1 kg (364 lb) 10/08/2023 1:29 PM CDT Height 198.1 cm (6' 5.99 ) 10/08/2023 1:29 PM CD T Body Mass Index 42.07 10/08/2023 1:29 PM CDT documented in this encounter Patient Instructions * Patient Instructions* Yaya Gilmore MD - 10/08/2023 1:30 PM CDT Start monitoring your sugars with DEXCOM G7 sensor Stay on Lantus, 20 units at bedtime Humalog, 10 units before meals For sugars over 200, take 15 units Stay on Trulicity 1.5 mg weekly Try to work on 20-30 min daily walks Try to not eat more than 2-3 servings of carbs per meal. documented in this encounter Ordered Prescriptions Prescription Sig Dispense Quantity Refills Last Filled Start Date End Date insulin lispro (ADMELOG) 100 unit/mL pen for injectionIndicatio ns:type 1 diabetes mellitus Inject 10 Units under the skin 3 (three) times a day with meals 15 mL 6 10/08/2023 5 insulin glargine (LANTUS) 100 unit/mL (3 mL) pen for injectionIndicatio ns:Type 2 diabetes mellitus with hyperglycemia, with long-term current use of insulin (HCC) Inject 20 Units under the skin nightly 15 mL 6 10/08/2023 5 metFORMIN (GLUCOPHAGE) 500 mg tabletIndications: Type 2 diabetes mellitus with hyperglycemia, with long-term current use of insulin (HCC) Take 1 tablet (500 mg total) by mouth 2 (two) times a day with meals 180 tablet 3 10/08/2023 4 dulaglutide (Trulicity) 3 mg/0.5 mL pen injectorIndication s:Type 2 diabetes mellitus with hyperglycemia, with long-term current use of insulin (HCC) Inject 0.5 mL (3 mg total) under the skin every 7 days 6 mL 3 10/08/2023 4 documented in this encounter Progress Notes * Yaya Gilmore MD - 10/08/2023 1:30 PM CDT Subjective/Objective Patient ID: Rene Hyatt is a 43 y.o. male. Chief Complaint Diabetes Type 2 HPI New DM patient to the office. Consult requested by Nguyễn Bingham MD for Diabetes Type 2 Diabetes complications and/or comorbidity includes : diagnosed in Mar 2023, presented with a scrotal abscess, admitted to [facility] Hba1c : Lab Results Component Value Date HGBA1C 6.3 10/08/2023 HGBA1C 13.3 (H) 03/06/2023 Current DM medications: Metformin 1000 mg , 1/2 tab bid aB and aD Trulicity 1.5 mg weekly Lantus 20 units hs Humalog 10 units aC , 2-3 x day BG monitoring : not regularly, probably once a day, in the upper 100s, some 200-300s Hypoglycemic events : would have some symptoms, with 100s, probably once a month. Physical activity routine: not regularly Dietary habits : 2-3 meals a day, lives with her mother, bedridden, he is the caregiver . Tries to watch carbs. Not drinking regular sodas. Assessment/Plan Diagnoses and all orders for this visit: Type 2 diabetes mellitus with hyperglycemia, with long-term current use of insulin (HCC) (E11.65, Z79.4) (Primary) Assessment & Plan: Chronic, stable Start blood glucose monitoring with [...] no more than 2- 3 per meal Orders: - POCT glucose - POCT hemoglobin A1c - dulaglutide (Trulicity) 3 mg/0.5 mL pen injector; Inject 0.5 mL (3 mg total) under the skin every7 days - insulin glargine (LANTUS) 100 unit/mL (3 mL) pen for injection; Inject 20 Units under the skin nightly - metFORMIN (GLUCOPHAGE) 500 mg tablet; Take 1 tablet (500 mg total) by mouth 2 (two) times a day with meals - insulin lispro (ADMELOG) 100 unit/mL pen for injection; Inject 10 Units under the skin 3 (three) times a day with meals documented in this encounter Miscellaneous Notes * Assessment & Plan Note - Yaya Gilmore MD - 10/08/2023 2:25 PM CDTAssociated Problem(s): Type 2 diabetes mellitus with hyperglycemia, with long-term current use of insulin (HCC) Chronic, stable Start blood glucose monitoring with [...] no more than 2- 3 per meal documented in this encounter Plan of Treatment Not on file documented as of this encounter Procedures Procedure Name Priority Date/Time Associated Diagnosis Comments POCT HEMOGLOBIN A1C Routine 10/08/2023 1 :33 PM CDT Type 2 diabetes mellitus with hyperglycemia, with long-term current use of insulin ([facility]) POCT GLUCOSE Routine 10/08/2023 1:33 PM CDT Type 2 diabetes mellitus with hyperglycemia, with long-term current use of insulin ([facility]) documented in this encounter Results * (ABNORMAL) POCT hemoglobin A1c (10/08/2023 1:33 PM CDT) Hemoglobin A1C, POC 6.3 % Blood 10/08/2023 1:33 PM CDT us Yaya Gilmore MD POINT OF CARE TEST ORDERABLES Fi nal Result * (ABNORMAL) POCT glucose (10/08/2023 1:33 PM CDT) Glucose Blood, POC 269 mg/dL Blood 10/08/2023 1:33 PM CDT us Yaya Gilmore MD POINT OF CARE TEST ORDERABLES Fi nal Result documented in this encounter Visit Diagnoses Diagnosis Type 2 diabetes mellitus with hyperglycemia, with long-term current use of insulin ([facility])- Primary documented in this encounter Discontinued Medications Medication Sig Discontinue Reason Start Date End Da te potassium chloride ER 20 mEq CR tablet 04/27/2023 10/08/2023 doxycycline (doxycycline hyclate) 100 mg capsule 03/02/2023 10/08/19 cephalexin (KEFLEX) 500 mg capsule 04/27/2023 10/08/2023 buPROPion XL (WELLBUTRIN XL) 150 mg 24 hr tablet Take 1 tablet (150 mg total) by mouth daily 10/01/2023 10/08/2023 GaviLyte-N 420 gram solution Other 07/10/2023 10/08/2023 dulaglutide (Trulicity) 0.75 mg/0.5 mL pen injector Inject 0.5 mL (0.75 mg total) under the skin once a week Duplicate order 03/25/2023 10/08/2023 Trulicity 1.5 mg/0.5 mL pen injector Dose adjustment 08/17/2023 10/08/2023 insulin glargine (LANTUS) 100 unit/mL (3 mL) pen for injection Inject 20 Units under the skin nightly Reorder 03/25/2023 10/08/2023 metFORMIN (GLUCOPHAGE) 1,000 mg tablet Take 0.5 tablets (500 mg total) by mouth 2 (two) times a day with meals Reorder 03/25/2023 10/08/2023 insulin lispro (ADMELOG) 100 unit/mL pen for injectionIndications:typ e 1 diabetes mellitus Inject 10 Units under the skin 3 (three) times a day with meals Reorder 03/25/2023 10/08/2023 documented as of this encounter Historical Medications * This list may reflect changes made after this encounter. tamsulosin (FLOMAX) 0.4 mg extended release capsule Take 1 capsule (0.4 mg total) by mouth daily after dinner 07/16/2023 ClearLax 17 gram/dose bulk powder Take 17 g by mouth daily as needed (constipation ) 07/17/2023 gabapentin (NEURONTIN) 300 mg capsule Take 1 capsule (300 mg total) by mouth 3 (three) times a day 07/23/2023 furosemide (LASIX) 20 mg tablet Take 1 tablet (20 mg total) by mouth every other day ferrous sulfate 325 mg (65 mg of elemental iron) tablet 06/02/2023 acetaminophen (TYLENOL) 500 mg tablet Take 1 tablet (500 mg total) by mouth every 6 (six) hours as needed TRUEplus Pen Needle 31 gauge x 3/16 needle USE WITH INSULIN PENS 08/17/2023 02/17/2024 losartan (COZAAR) 50 mg tablet 07/02/2023 02/17/2024 Trulicity 1.5 mg/0.5 mL pen injector 08/17/2023 10/08/2023 traMADoL (ULTRAM) 50 mg tablet 03/02/2023 05/13/2024 GaviLyte-N 420 gram solution 07/10/2023 10/08/2023 promethazine (PHENERGAN) 25 mg tablet 07/10/2023 05/13/2024 potassium chloride ER 20 mEq CR tablet 04/27/2023 10/08/2023 mupirocin (BACTROBAN) 2 % ointment 04/28/2023 05/13/2024 fluconazole (DIFLUCAN) 200 mg tablet 03/25/2023 05/13/2024 famotidine (PEPCID) 40 mg tablet Take 1 tablet (40 mg total) by mouth nightly 09/02/2023 05/13/2024 doxycycline (doxycycline hyclate) 100 mg capsule 03/02/2023 10/08/2023 cyanocobalamin (Vitamin B-12) 1,000 mcg/mL injection 05/13/2024 cholecalciferol (VITAMIN D-3) 50,000 unit capsule Take 1 capsule (50,000 Units total) by mouth 2 (two) times a week 04/01/2023 02/18/2024 cephalexin (KEFLEX) 500 mg capsule 04/27/2023 10/08/2023 buPROPion XL (WELLBUTRIN XL) 150 mg 24 hr tablet Take 1 tablet (150 mg total) by mouth daily 10/01/2023 10/08/2023 added in this encounter Care Teams Copy Technician Relationship Specialty Start Date End Date Nguyễn Bingham MD [address] [place] [id number] PCP - General Emergency Medicine 07/28/23 02/16/24 documented as of this encounter
--- OUTSIDE RECORDS SUMMARY | 2024-06-08 00:06 | XMS_ITS | Encounter Summary ---
Author Organization [facility] Healthcare Address [address] [place] [address] Care Team Providers Care Model Home Sales Greeter Name Role Phone Mary Platt MD Primary Care Provider [phone] Encounter Details Date Type Department Care Team (Late st Contact Info) Description 02/18/2024 Orders Only [facility] Medical Group Diabetes and Endocrinology [address] [place] [phone] Natividad Mckeon, TAVERN KEEPER [address] [facility] [address] [place] [address] Vitamin D deficiency (Primary Dx) Social History Tobacco Use Types [...] materials from doctor or pharmacy Never 05/06/2023 [facility] Utilities Answer Date Recorded In the past 12 months has e [email or web address], gas, oil, or water company threatened to [...] often do you attend chur ch or gnosticism services? 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 Gender Identity Not on file Sexual Orientation Not on file documented as of this encounter Ordered Prescriptions Prescription Sig Dispense Quantity Refills Last Filled Start Date End Date ergocalciferol (VITAMIN D) 50,000 unit capsuleIndications :Vitamin D Deficiency Take 1 capsule (50,000 Units total) by mouth once a week 12 capsule 1 02/18/2024 documented in this encounter Plan of Treatment Not on file documented as of this encounter Visit Diagnoses Diagnosis Vitamin D deficiency- Primary documented in this encounter Discontinued Medications Medication Sig Discontinue Reason Start Date End Da te cholecalciferol (VITAMIN D-3) 50,000 unit capsule Take 1 capsule (50,000 Units total) by mouth 2 (two) times a week Duplicate order 04/01/2023 02/18/2024 ergocalciferol (VITAMIN D) 50,000 unit capsule Take 1 capsule (50,000 Units total) by mouth 2 (two) times a week for 15 doses Reorder 03/26/2023 02/18/2024 documented as of this encounter Care Teams Model Home Sales Greeter Relationship Specialty Start Date End Date Mary Platt MD [address] [address] PCP - General Chain Hooker 02/17/24 documented as of this encounter
--- OUTSIDE RECORDS SUMMARY | 2024-06-08 00:06 | XMS_ITS | Encounter Summary ---
Author Organization [facility] Healthcare Address [address] [place] [address] Care Team Providers Care Waiter/Waitress Head Name Role Phone Mary Platt MD Primary Care Provider [phone] Encounter Details Date Type Department Care Team (Latest Contact Info) Description 02/17/2024 4:11 PM CDT - 02/17/2024 11:59 PM CDT Hospital Encounter [address] [address] Vitamin D deficiency Discharge Disposition: Discharge to home or self care Social History Tobacco Use Types Packs/Day Years [...] materials from doctor or pharmacy Never 05/06/2023 [facility] Utilities Answer Date Recorded In the [...] week 03/31/2023 How often do you attend [facility] or hindu services? 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) Take 1 tablet (20 mg total) by mouth nightly 90 tablet 3 02/17/2024 5 buPROPion SR (WELLBUTRIN SR) 150 mg 12 hr tablet Take 1 tablet (150 mg total) by mouth 2 (two) times a day 02/03/2024 furosemide (LASIX) 20 mg tablet Take 1 [...] by mouth daily as needed (constipation) 07/17/2023 DexGradFly G7 Sensor deviceIndications :Type 2 diabetes mellitus with hyperglycemia, with long-term current use of insulin (HCC) Change sensor every 10 days 10 each 3 02/17/2024 ferrous sulfate 325 mg (65 mg of elemental iron) tablet 06/02/2023 glucagon (Baqsimi) 3 mg/actuation spray,non-aerosol One spray into one nostril once as directed by provider for low blood sugar. 1 each 03/25/2023 lancets misc Use as directed up to [...] times a day. 100 each 3 02/17/2024 calcium carbonate (OS-KRISTY) 1,250 mg (500 mg elemental) tabletIndications :hypocalcemia Take 1 tablet (1,250 mg total) by mouth 2 (two) times a day 60 tablet 1 03/25/2023 cholecalciferol (VITAMIN D-3) 50,000 unit capsule Take 1 capsule (50,000 Units total) by mouth 2 (two) times a week 04/01/2023 4 clotrimazole 1 % cream APPLY TO THE AFFECTED AND SURROUNDING AREAS OF SKIN BY TOPICAL ROUTE 2 TIMES PER DAY IN THE MORNING AND EVENING 02/03/2024 4 cyanocobalamin (Vitamin B-12) 1,000 mcg/mL injection 4 ergocalciferol (VITAMIN D) 50,000 unit capsule Take 1 capsule (50,000 Units total) by mouth 2 (two) times a week for 15 doses 8 capsule 1 03/26/2023 4 famotidine (PEPCID) 40 mg tablet Take 1 tablet (40 mg total) by mouth nightly 09/02/2023 4 fluconazole (DIFLUCAN) 200 mg tablet 03/25/2023 4 mupirocin (BACTROBAN) 2 % ointment 04/28/2023 4 promethazine (PHENERGAN) 25 mg tablet 07/10/2023 4 SSD 1 % cream APPLY A 1/16 INCH (1.5 MM) THICK LAYER TO ENTIRE BURN AREA BY TOPICAL ROUTE 2 TIMES PER DAY 02/09/2024 4 tirzepatide (Mounjaro) 2.5 mg/0.5 mL pen injectorIndicatio ns:Type 2 diabetes mellitus with hyperglycemia, with long-term current use of insulin (HCC) Inject 0.5 mL (2.5 mg total) under the skin every 7 days 2 mL 02/17/2024 4 traMADoL (ULTRAM) 50 mg tablet 03/02/2023 4 documented as of this encounter Discharge Disposition Disposition Code Departure Means Destination Discharge to home or self care documented in this encounter Miscellaneous Notes * Result Encounter Note - Natividad Mckeon NP - 02/17/2024 11:59 PM CDT SEE LETTER SENT VIA [employer]: Jt López, Your vitamin D is at the lower end of normal. Much improved from less than 6 eleven months prior. Please continue the ergocalciferol 50,000IU weekly (new script sent in). We'll repeat this at your next appointment; if it is higher--we'll move you to [id number] vitamin D3 2000 international units daily. * Result Encounter Note - Natividad Mckeon NP - 02/17/2024 11:59 PM CDT Dear Rene Hyatt, Please check your [employer] account; in the letters section. Your recent test results have been sent to your [employer] account. If any questions, please call. Thank you, Rohini Waggoner * Result Encounter Note - Natividad Mckeon NP - 02/17/2024 11:59 PM CDT Please mail 02/18/24 lab result letter. Per chart: was not viewed in [email or web address]. Thank you Natividad documented in this encounter Plan of Treatment Not on file documented as of this encounter Procedures Procedure Name Priority Date/Time Associated Diagnosis Comments VITAMIN D 25 HYDROXY Routine 02/17/2024 4:11 PM CDT Vitamin D deficiency documented in this encounter Results * Vitamin D 25 hydroxy (02/17/2024 4:11 PM CDT) Vitamin D 25-OH 44 30 - 80 ng/mL Blood 02/17/2024 4:11 PM CDT 02/17/2024 8:42 PM CDT us Natividad Mckeon NP LAB BLOOD ORDERABLES Shilpi montano Result [facility] [address] [address] Department [place] [address] documented in this encounter Visit Diagnoses Diagnosis Vitamin D deficiency documented in this encounter Care Teams Waiter/Waitress Head Relationship Specialty Start Date End Date Mary Platt MD [address] [address] PCP - General Computer Hardware Engineer 02/17/24 documented as of this encounter
--- OUTSIDE RECORDS SUMMARY | 2024-06-08 00:06 | XMS_ITS | Encounter Summary ---
Author Organization [facility] Healthcare Address [address] [place] [address] Care Team Providers Care Flap Curer Name Role Phone Herb Burden MD Primary Care Provider [phone] Carissa Cancino MARKETING PLANNER Unavailable [phone] Encounter Details Date Type Department Care Team ([facility] Contact Info) Description 03/30/2023 Home Care Visit [facility] [address] [place] [id number] Cookie Davis RN SN TRIAGE ENCOUNTER Social History Tobacco Use Types Packs/Day Years Used Date Smoking Tobacco: Never [facility] Utilities Answer Date Recorded In the past 12 months has [facility] [employer], gas, oil, or water company threatened [...] often do you attend chur ch or samaritan services? Never 03/31/2023 Do you belong to any clubs o r organizations such as pentecostalism groups, unions, fraternal or athletic groups, or [...] money to buy more. Never true 03/31/20 Within the past 12 months, t he [...] place to sleep or slept in a group home (including now)? Yes 03/31/2023 Personal Safety Answer Date Recorded Have you ever been in or are you currently in a harmful physical or emotional relationship or is someone making you feel afraid or unsafe? 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 Conveyed will forward request to Care team for follow-up. Follow-up:email to CRC, Charge Nurse, AOC documented in this encounter Plan of Treatment Not on file documented as of this encounter Visit Diagnoses Not on filedocumented in this encounter Care Teams Flap Curer Relationship Specialty Start Date End Date Herb Burden MD [address] [phone] PCP - General Family Practice 03/25/23 07/27/23 Carissa Cancino LCSW [address] [facility] Mailstop [phone] [place] [address] [facility] Outpatient Parcel Post Order Clerk 03/26/23 03/30/23 documented as of this encounter
--- OUTSIDE RECORDS SUMMARY | 2024-06-08 00:06 | XMS_ITS | Encounter Summary ---
Author Organization [facility] Healthcare Address [address] [place] [address] Care Team Providers Care Forge Hand Name Role Phone Mary Platt MD Primary Care Provider [phone] Reason for Visit * Reason Onset Date Comments Prior Auth 02/18/2024 Dexcom G7 Sensor ; Mounjaro Encounter Details Date Type Department Care Team ([facility] Contact Info) Description 02/18/2024 Telephone [facility] Medical Group Diabetes and Endocrinology [address] [place] [phone] Natividad Mckeon, DECOMMISSIONING WELL SITE MANAGER [address] [facility] [address] [place] [address] Prior Auth (Dexcom G7 Sensor; Mounjarashmi) Social History Tobacco Use Types Packs/Day Years [...] doctor or pharmacy Never 05/06/2023 [facility] Utilities Answer Date Recorded In the [...] often do you attend chur ch or uatsdin services? Never 03/31/2023 Do you belong to [...] place to sleep or slept in a alf (including now)? Yes 03/31/2023 Personal Safety Answer Date Recorded Have you ever been in or are you currently in a harmful physical or emotional relationship or is someone making you feel afraid or unsafe? 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 Monse informed at [facility] and stated she will inform the pt. * Telephone Encounter - Vianey aJlloh MA - 02/18/2024 9:38 AM CDT Prior auth for Dexcom G7 Sensor and Mounjaro started on [facility] Dexcom G7 Sensor Ferrell: [id number] Mounjaro Ferrell: [id number] documented in this encounter Plan of Treatment Not on file documented as of this encounter Visit Diagnoses Not on filedocumented in this encounter Care Teams Forge Hand Relationship Specialty Start Date End Date Mary Platt MD [address] [address] PCP - General Aviation Electrical Technician 02/17/24 documented as of this encounter
--- OUTSIDE RECORDS SUMMARY | 2024-06-08 00:06 | XMS_ITS | Encounter Summary ---
Author Organization [facility] Healthcare Address [address] [place] [address] Care Team Providers Care Glue Mill Operator Name Role Phone Nguyễn Bingham MD Primary Care Provider [phone] Reason for Visit * Reason Onset Date Comments Prior Auth 10/08/2023 Dexcom G7 Encounter Details Date Type Department Care Team ([facility] Contact Info) Description 10/08/2023 Telephone [facility] Medical Group Diabetes and Endocrinology [address] [place] [phone] [place] [address] [facility] [address] [place], [place] [id number] Prior Auth (Dexcom G7) Social History Tobacco Use Types Packs/Day Years [...] materials from doctor or pharmacy Never 05/06/2023 [facility] Utilities Answer Date Recorded In the past 12 months has th e [employer], gas, oil, or water company threatened to [...] often do you attend chur ch or pentecostalism services? Never 03/31/2023 Do you belong to any clubs o r organizations such as protestant groups, unions, fraternal or athletic groups, or [...] place to sleep or slept in a detention (including now)? Yes 03/31/2023 Personal Safety Answer Date Recorded Have you ever been in or are you currently in a harmful physical or emotional relationship or is someone making you feel afraid or unsafe? Denies 03/25/2023 Sex and Gender Information Value Date Recorded Sex Assigned at Not on file Legal Sex Male 7:12 PM RN MDS COORDINATOR Gender Identity Not on file Sexual Orientation Not on file documented as of this encounter Miscellaneous Notes * Telephone Encounter - Vianey Jalloh MA - 10/12/2023 3:06 PM CDT Pt informed of Dr. Gilmore's message and voiced understanding. * Telephone Encounter - Yaya Gilmore MD - 10/12/2023 2:35 PM CDT L;et the pt know, he can get samples from the office until next bro. * Telephone Encounter - Vianey Jalloh MA - 10/09/2023 9:14 AM CDT Prior auth denied. Pt is not testing 3 or more times per day. * Telephone Encounter - Vianey Jalloh MA - 10/08/2023 2:55 PM CDT Prior auth for Dexcom G7 Sensors started on [facility] Ferrell: [id number] documented in this encounter Plan of Treatment Not on file documented as of this encounter Visit Diagnoses Not on filedocumented in this encounter Care Teams Glue Mill Operator Relationship Specialty Start Date End Date Nguyễn Bingham MD [address] [place] [address] PCP - General Emergency Medicine 2/20/24 9/10/24 documented as of this encounter
--- OUTSIDE RECORDS SUMMARY | 2024-06-08 00:06 | XMS_ITS | Encounter Summary ---
Author Organization [facility] Healthcare Address [address] [place] [address] Care Team Providers Care Coding Assistant Name Role Phone Herb Burden MD Primary Care Provider + [phone] Carissa Cancino SEASONER Unavailable Reason for Visit * Auth/Cert (Routine) Specialty Diagnoses / Procedures Referred By Contjacqui t Referred To Contact Referral ID Status Reason Start Date Expiration Date Visits Re quested Visits Authorized [id number] 1 1 Encounter Details Date Type Department Care Team (Late st Contact Info) Description 04/15/2023 5:00 PM BROACH OPERATOR Home Care Visit [facility] [place] [address] [address] [place] [phone] Tonya Mendez LPN SN HOME VISIT Social History Tobacco Use [...] materials from doctor or pharmacy Never 04/05/2023 [facility] Utilities Answer Date Recorded In the [...] often do you attend chur ch or congregation services? Never 03/31/2023 Do you belong to [...] on file Legal Sex Male 7:12 PM BROACH OPERATOR Gender Identity Not on file Sexual Orientation Not on file documented as of this encounter Last Filed Vital Signs Vital Sign Reading Time Taken Comments Blood Pressure 152/90 04/15/2023 3:35 PM BROACH OPERATOR Pulse 95 04/15/2023 3:35 PM BROACH OPERATOR Temperature 36.9 ??C (98.4 ??F) 04/15/2023 3:[address] Respiratory Rate 18 04/15/2023 3:35 PM BROACH OPERATOR Oxygen Saturation 96% 04/15/2023 3:35 PM BROACH OPERATOR Inhaled Oxygen Concentration - - Weight - - Height - - Body Mass Index - - documented in this encounter Miscellaneous Notes * Home Health Plan for Next Visit - Tonya Mendez LPN - 04/15/2023 3:25 PM CST Plan for next visit wound care wound progression CH OPERATOR documented in this encounter Plan of Treatment Not on file documented as of this encounter Visit Diagnoses Not on filedocumented in this encounter Home Health Visit - Care Plan Visit Details Visit Type -SN Home Visit Discipline -Intermediate Problems Problem Description Start Date Status Goals Interve ntions Homebound Status Disciplines: Skilled Disciplines Patient's homebound status 04/05/2023 Active 1 goal linked to scheduled/documen bridgette intervention 1 goal intervention scheduled/documen bridgette in this visit Medications Disciplines: Intermediate Management of home medications 04/05/2023 Active 1 goal linked to scheduled/documen bridgette intervention 2 goal interventions scheduled/documen bridgette in this visit Monitor patient's vital signs every home health visit Disciplines: SN, PT, OT, TRANSPORTATION DEPARTMENT SUPERVISOR, CLAY DRY PRESS MIXER OPERATOR, Skilled Disciplines Monitor patient's vital signs every [...] visit during episode of care Description: Home brim raiser to measure vital signs during every home [...] health visit during episode of care Completed WNL Educate Patient on Infection Prevention Description: Instructed patient on signs and symptoms of infection IE: fever, odor, change in color, increased amount of drainage, purulent drainage, warmth. Problem:Infection Prevention Goal:Verbalize signs of infection Scheduled Instruct Fall Prevention Description: Instruct patient in methods to prevent falls Problem:Safety concerns Goal:Demonstrate use of safety precautions Completed sn instructed patient on fall prevention to insure pathway free of debris insure when ambulating if any feelings of dizziness upon standing sit back down till it passess patient verbalized understanding Assess safety Description: Assess patient safety Problem:Safety [...] Education and Management Goal:Knowledgeable of Wound Management Scheduled Perform dressing change Description: Perform dressing change: [...] 04/01/23 Problem:Wound Care Goal:Progression towards healing Completed sn assessed wound with wound care pt tolerated well Perform dressing change Description: Perform dressing change: [...] 04/01/23. Problem:Wound Care Goal:Progression towards healing Completed sn assessed wound with wound care pt tolerated well documented in this encounter Care Teams Coding Assistant Relationship Specialty Start Date End Date Herb Burden MD [address] [facility] [address] [place] [address] PCP - General Family Practice 03/25/23 07/27/23 Carissa Cancino LCSW [address] [facility] ([facility]) Mailstop [phone] [place] [address] SHOP Outpatient Motor Rebuilder 03/31/23 04/21/23 documented as of this encounter
--- OUTSIDE RECORDS SUMMARY | 2024-06-08 00:06 | XMS_ITS | Encounter Summary ---
Author Organization [facility] Healthcare Address [address] [place] [address] Care Team Providers Care Hand Pleater Name Role Phone Herb Burden MD Primary Care Provider + [phone] Carissa Cancino GERIATRIC NURSING ASSISTANT Unavailable [phone] Reason for Visit * Auth/Cert (Routine) Specialty Diagnoses / Procedures Referred By Contac t Referred To Contact Referral ID Status Reason Start Date Expiration Date Visits Re quested Visits Authorized [id number] 1 1 Encounter Details Date Type Department Care Team ([facility] Contact Info) Description 04/05/2023 Home Care Visit [facility] [address] [address] [address] [place] [address] Jaida Liang RN SBAR-START OF CARE/RESUMPTION Social History Tobacco Use Types Packs/Day Years [...] materials from doctor or pharmacy Never 04/05/2023 [facility] Utilities Answer Date Recorded In the past [...] often do you attend chur ch or latter day services? 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 [address] [place] [address] PCP - General Family Practice 03/25/23 07/27/23 Carissa Cancino LCSW [address] [facility] ([facility]) Mailstop [phone] [place] [address] SHOP Outpatient Major Account Representative 03/31/23 04/21/23 documented as of this encounter
--- OUTSIDE RECORDS SUMMARY | 2024-06-08 00:06 | XMS_ITS | Encounter Summary ---
Author Organization [facility] Healthcare Address [address] [place] [address] Care Team Providers Care Bellhop Captain Name Role Phone Nguyễn Bingham MD Primary Care Provider [phone] Reason for Visit * Reason Onset Date Comments Med Management 10/08/2023 Dexcom Encounter Details Date Type Department Care Team ([facility] st Contact Info) Description 10/08/2023 Telephone [facility] Medical Group Diabetes and Endocrinology [address] [place] [phone] [place] [address] [facility] [address] [place], [place] [id number] Med Management (Dexcom) Social History Tobacco Use Types Packs/Day Years [...] materials from doctor or pharmacy Never 05/06/2023 [facility] Utilities Answer Date Recorded In the past 12 months has e [employer], gas, oil, or water company threatened to [...] often do you attend chur ch or bahai services? Never 03/31/2023 Do you belong to any clubs o r organizations such as temple groups, unions, fraternal or athletic groups, or [...] place to sleep or slept in a halfway (including now)? Yes 03/31/2023 Personal Safety Answer Date Recorded Have you ever been in or are you currently in a harmful physical or emotional relationship or is someone making you feel afraid or unsafe? 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 Gilmore. Wood Veneer Taper given to pt in the office. documented in this encounter Plan of Treatment Not on file documented as of this encounter Visit Diagnoses Diagnosis Type 2 diabetes mellitus with hyperglycemia, with long-term current use of insulin (HCC)- Primary documented in this encounter Care Teams Bellhop Captain Relationship Specialty Start Date End Date Nguyễn Bingham MD [address] [place] [address] PCP - General Emergency Medicine 07/28/23 02/16/24 documented as of this encounter
--- OUTSIDE RECORDS SUMMARY | 2024-06-08 00:06 | XMS_ITS | Encounter Summary ---
Author Organization [facility] Healthcare Address [address] [place] [address] Care Team Providers Care Engineer Specialist Name Role Phone Mary Platt MD Primary Care Provider [phone] Encounter Details Date Type Department Care Team ([facility] st Contact Info) Description 02/17/2024 4:00 PM CDT Lab [facility] Medical Group Outpatient Lab at [address] [phone] Vitamin D deficiency (Primary Dx) Social History [...] materials from doctor or pharmacy Never 05/06/2023 [facility] Utilities Answer Date Recorded In the past 12 months has th e [employer], gas, oil, or water company threatened to [...] week 03/31/2023 How often do you attend [facility] or gnosticism services? Never 03/31/2023 Do you belong to any clubs o r organizations such as faith groups, unions, fraternal or athletic groups, or [...] place to sleep or slept in a usp (including now)? Yes 03/31/2023 Personal Safety Answer Date Recorded Have you ever been in or are you currently in a harmful physical or emotional relationship or is someone making you feel afraid or unsafe? 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
--- OUTSIDE RECORDS SUMMARY | 2024-06-08 00:06 | XMS_ITS | Encounter Summary ---
Author Organization [facility] Address [address] [facility] [address] [place] [address] Phone Care Team Providers Care Poker Prop Player Name Role Phone Herb Burden MD Primary Care Provider + [phone] Reason for Visit * Reason Comments Perineal Abcess S/p 03/12/2023 [facility] PERINEAL WOUND Encounter Details Date Type Department Care Team (Late st Contact Info) Description 05/07/2023 9:40 AM COMPLIANCE PROJECT MANAGER Office Visit [facility] ([facility]) - [facility] Urology [address] [facility] Advanced Medicine 11th [place] [address] [place] [address] Hans Negron MD [address] [facility] [place] [id number] Ange's gangrene of scrotum (Primary Dx) Social History Tobacco Use Types [...] materials from doctor or pharmacy Never 05/06/2023 [facility] Utilities Answer Date Recorded In the [...] often do you attend chur ch or rastafarian services? Never 03/31/2023 Do you belong to [...] on file Legal Sex Male 7:12 PM COMPLIANCE PROJECT MANAGER Gender Identity Not on file Sexual Orientation Not on file documented as of this encounter Last Filed Vital Signs Vital Sign Reading Time Taken Comments Blood Pressure 147/84 05/07/2023 8:33 AM COMPLIANCE PROJECT MANAGER Pulse 102 05/07/2023 8:33 AM COMPLIANCE PROJECT MANAGER Temperature 37.6 ??C (99.7 ??F) 05/07/2023 8:33 AM CS T Respiratory Rate - - Oxygen Saturation - - Inhaled Oxygen Concentration - - Weight - - Height - - Body Mass Index - - documented in this encounter Progress Notes * Hans Negron MD - 05/07/2023 9:40 AM CST [facility] Note Rene Hyatt : 1980 Date of Visit: 05/07/2023 CC: postop visit Scrotal abscess/Ange's gangrene s/p I&D and subsequent primary closure 03/12/23, drain removed prior to hospital discharge Doing well with perineal wound, no recent drainage Denies voiding issues Foot ulcer being managed by PCP The following lab results were personally reviewed by me: Lab Results Component Value Date GLUCOSE 187 03/26/2023 CALCIUM 8.5 03/22/2023 SODIUM 140 03/22/2023 POTASSIUM 4.0 03/22/2023 CO2 28 03/22/2023 CHLORIDE 104 03/22/2023 BUNSER 17 03/22/2023 CREATININE 0.83 03/22/2023 Lab Results Component Value Date WBC 7.9 03/22/2023 HGB 9.6 (L) 03/22/2023 HCT 29.5 (L) 03/22/2023 MCV 85.0 03/22/2023 LABPLAT 226 03/22/2023 Lab Results Component Value Date PTH 12 (L) 03/09/2023 CALCIUM 8.5 03/22/2023 CAION 4.15 (L) 03/06/2023 PHOS 2.9 03/10/2023 No results found for: PSA Lab Results Component Value Date HGBA1C 13.3 (H) 03/06/2023 Physical exam: Constitutional: no acute distress Eyes: Extraocular muscles intact Respiratory: Nonlabored respirations Psychiatric: Mood and affect appropriate, alert and oriented to person, place and time Genitourinary: perineal/scrotal incision well-healed without erythema, redness, or induration Assessment/plan: Scrotal abscess/Ange's gangrene s/p I&D and primary closure Wound well-healed on exam today RTC PRN Thank you for this referral. Hans Negron MD LIANCE PROJECT MANAGER documented in this encounter Plan of Treatment Not on file documented as of this encounter Visit Diagnoses Diagnosis Ange's gangrene of scrotum- Primary documented in this encounter Care Teams Poker Prop Player Relationship Specialty Start Date End Date Herb Burden MD [address] [facility] [address] [place] [phone] PCP - General Family Practice 03/25/23 07/27/23 documented as of this encounter
--- OUTSIDE RECORDS SUMMARY | 2024-06-08 00:06 | XMS_ITS | Encounter Summary ---
Author Organization [facility] Healthcare Address [address] [place] [address] Care Team Providers Care Straw Baler Name Role Phone Herb Burden MD Primary Care Provider + [phone] Carissa Cancino [facility] Unavailable [phone] Reason for Visit * Reason Comments Successfully Completed Encounter Details Date Type Department Care Team (Late Contact Info) Description 03/31/2023 SHOP/CHAP Initial Outreach [facility] OP CASE MANAGEMENT [address] [place] [address] Gretchen Wright, ARYAN [address] [facility] [address] [place], [place] [id number] Social History Tobacco Use Types Packs/Day Years Used Date Smoking Tobacco: Never [facility] Utilities Answer Date Recorded In the past 12 months has [employer], gas, oil, or water company threatened [...] often do you attend chur ch or hoahaoism services? 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 Patient was inpatient at [facility] 03/06-03/25 for scrotal abscess. Patient reports doing fairly well since discharge. Patient endorses clear drainage from scrotum. Discussed with patientthat some drainage is expected and is not immediately cause for concerns. Instructed patient to notify urologist if drainage becomes significant (saturating multiple dressings per day) or if drainagebecomes thick, purulent, or malodorous. Instructed patient on wound care/dressing changes and patient verbalized understanding. Reviewed medication list, patient verbalized understanding and reports compliance. PCP appointment scheduled for 04/01 at 10:40 am. Patient's home was recently condemned due to safety concerns. Patient states he is currently staying in a local hotel (cannot recall name of hotel). Patient states he has access to food, medications,and clothing and declined additional resources at this time. Patient states he is in the process ofgetting quotes from local contractors/home repair [employer]. Patient declined housing resources at this time. Patient states he has his father's old truck and is able to drive himself where he needs to go. Patient expressed concern over his 3 cats who were left at the home. Per SW notes, a neighboris currently feeding the cats. Patient has pending referral to [facility]. Per patient, he has not been contacted by anyone yet and hecalled yesterday to inquire about [id number]. Per home health note from 03/26, patient was removed from HH schedule due to homelessness. Patient verbalized understanding and states he will get thename and address of hot later today to provide to [facility]. Patient confirms he has [facility] phone number. Patient declined further assistance and has no questions at this time. Patient consents to SHOP enrollment. Provided [facility] phone number and encouraged patient to call with any needs. documented in this encounter Plan of Treatment Not on file documented as of this encounter Visit Diagnoses Not on filedocumented in this encounter Care Teams Straw Baler Relationship Specialty Start Date End Date Herb Burden MD [address] [place] [address] [place] [phone] PCP - General Family Practice 03/25/23 07/27/23 Carissa Cancino, DIRECTOR [employer] [address] [facility] ([facility]) Mailstop [phone] [place] [address] SHOP Outpatient Pigeon Fancier 03/31/23 04/21/23 documented as of this encounter
--- OUTSIDE RECORDS SUMMARY | 2024-06-08 00:06 | XMS_ITS | Encounter Summary ---
Author Organization [facility] Healthcare Address [address] [place] [address] Care Team Providers Care Senior Business Intelligence Analyst Name Role Phone Herb Burden MD Primary Care Provider + [phone] Carissa Cancino RESEARCH MECHANIC Unavailable [phone] Encounter Details Date Type Department Care Team ([facility] Contact Info) Description 04/05/2023 Plan of Care Documentation [facility] Health [address] [address] [address] [place] [phone] Social History Tobacco Use Types Packs/Day Years [...] materials from doctor or pharmacy Never 04/05/2023 [facility] Utilities Answer Date Recorded In [...] week 03/31/2023 How often do you attend [facility] or orthodoxy services? 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 The patient is under my care, and I have authorized serviceson this plan of care and will periodically review the plan. The patient had a [id number] encounter with Ira Starks NP on 03/24/2023 and the encounter was related to the primary reason for home health care. RAL GAS PLANT TECHNICIAN documented in this encounter Plan of Treatment Not on file documented as of this encounter Visit Diagnoses Not on filedocumented in this encounter Care Teams Senior Business Intelligence Analyst Relationship Specialty Start Date End Date Herb Burden MD [address] [address] PCP - General Family Practice 03/25/23 07/27/23 Carissa Cancino LCSW [address] [facility] ([facility] Mailstop [phone] [place] [address] SHOP Outpatient Paving And Surfacing Labourer 03/31/23 04/21/23 documented as of this encounter
--- OUTSIDE RECORDS SUMMARY | 2024-06-08 00:07 | XMS_ITS | Encounter Summary ---
Author Organization [facility] Healthcare Address [address] [place] [address] Care Team Providers Care General Worker Name Role Phone Herb Burden MD Primary Care Provider + [phone] Carissa Cancino SCREEN DOOR MAKER Unavailable [phone] Encounter Details Date Type Department Care Team (Late st Contact Info) Description 03/26/2023 SHOP/CHAP Initial Eligibility Review [facility] OP CASE MANAGEMENT [address] [place] [address] Carissa Cancino, SCREEN DOOR MAKER [address] [facility] ([facility] Mailstop [phone] [place] [address] Social History Tobacco Use Types Packs/Day Years Used Date Smoking Tobacco: Never AUDIT-C Answer Date Recorded Q1: How often do you have a drink containing alcohol? Never 03/12/2023 Q2: How many drinks containi ng alcohol do you have on a typical day when you are drinking? Patient does not drink Q3: How often do you have si x or more drinks on one occasion? Never 03/12/2023 Personal Safety Answer Date Recorded Have you ever been in or are you currently in a harmful physical or emotional relationship or is someone making you feel afraid or unsafe? 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 Gender Identity Not on file Sexual Orientation Not on file documented as of this encounter Plan of Treatment Not on file documented as of this encounter Visit Diagnoses Not on filedocumented in this encounter Care Teams General Worker Relationship Specialty Start Date End Date Herb Burden MD [address] [place] [address] PCP - General Family Practice 03/25/23 07/27/23 Carissa Cancino, SCREEN DOOR MAKER [address] [facility] ([facility] Mailstop [phone] [place] [address] SHOP Outpatient Desulphurizer Operator 03/26/23 03/30/23 documented as of this encounter
--- OUTSIDE RECORDS SUMMARY | 2024-06-08 00:07 | XMS_ITS | Encounter Summary ---
Author Organization [facility] Healthcare Address [address] [place] [address] Care Team Providers Care Log Inspector Name Role Phone Herb Burden MD Primary Care Provider + [phone] Carissa Cancino [facility] Unavailable Reason for Visit * Reason Comments Unsuccessful Phone Call 2 Encounter Details Date Type Department Care Team ([facility] Contact Info) Description 03/27/2023 SHOP/CHAP Initial Outreach [facility] OP CASE MANAGEMENT [address] [place] [address] Gretchen Wright, ARYAN [address] [facility] [address] [place] [address] Social History Tobacco Use Types [...] on file 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 Gender Identity Not on file Sexual Orientation Not on file documented as of this encounter Plan of Treatment Not on file documented as of this encounter Visit Diagnoses Not on filedocumented in this encounter Care Teams Log Inspector Relationship Specialty Start Date End Date Herb Burden MD [address] [facility] [address] [place] [address] PCP - General Family Practice 03/25/23 07/27/23 Carissa Cancino, [facility] [address] [facility] ([facility] Mailstop [phone] [place] [address] SHOP Outpatient Pack Train Driver 03/26/23 03/30/23 documented as of this encounter
--- OUTSIDE RECORDS SUMMARY | 2024-06-08 00:07 | XMS_ITS | Encounter Summary ---
Author Organization [facility] Healthcare Address [address] [place] [address] Care Team Providers Care Film Writer Name Role Phone Herb Burden MD Primary Care Provider [phone] Carissa Cancino SEMICONDUCTOR TECHNICIAN Unavailable Reason for Visit * Reason Comments Homeless Encounter Details Date Type Department Care Team (Late st Contact Info) Description 03/25/2023 7:51 PM CDT - 03/26/2023 1:54 PM CDT Emergency [facility] Emergency Department [address] [place] [address] Wander Orta Jr., MD [address] [place] [address] Carolee Daly MD [address] [place] [address] Kathe Luz MD [address] [place] [address] Scrotal abscess (Primary Dx); Diabetic foot ulcer associated with type 1 diabetes mellitus, unspecified laterality, unspecified part of foot, unspecified ulcer stage (HCC); Ange gangrene Discharge Disposition: Discharge to home or self [...] on file 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 Gender Identity Not on file Sexual Orientation Not on file documented as of this encounter Last Filed Vital Signs Vital Sign Reading Time Taken Comments Blood Pressure 168/89 03/26/2023 11:30 AM CDT Pulse 90 03/26/2023 11:30 AM CDT Temperature 36.6 ??C (97.9 ??F) 03/25/2023 8:22 PM CD T Respiratory Rate 17 03/26/2023 11:30 AM CDT Oxygen Saturation 96% 03/26/2023 11:30 AM CDT Inhaled Oxygen Concentration - - Weight - - Height - - Body Mass Index - - documented in this encounter Discharge Instructions * Discharge Instructions* Gianfranco Ballard MD - 03/26/2023 9:55 AM CDT It is very important you take all your medications as prescribed. You were seen in the Emergency Department for concerns of unsafe discharge. Our evaluation including exam was reassuring for a non emergency cause of your symptoms. Our social work team worked with you to help arrange for a safe discharge plan for you, as [facility] Please follow-up with your primary care physician as previously scheduled. Additionally, after you were discharged yesterday we placed a referral to our associate material handler who will help manage your newly diagnosed diabetes. It is very important that you follow-up with them to make surethat you have the appropriate medications and teaching to manage your disease. Return to the ED if you have concerns for serious illness. * Attachments The following attachments cannot be sent through Care Everywhere. * Diabetes, Diet (Scottish) * Diabetes, General Information (Scottish) documented in this encounter Medications at Time of Discharge pantoprazole DR (PROTONIX) 40 mg EC tabletIndications :Stress Ulcer Prophylaxis Take 1 tablet (40 mg total) by mouth daily 30 tablet 1 03/26/2023 acetaminophen-asp irin-caffeine (EXCEDRIN MIGRAINE) 250-250-65 mg per tabletIndications :Pain Take 1 tablet by mouth daily as needed for headaches or pain alcohol swabs (Alcohol Wipes) pads, medicated Use as directed. 100 each 03/25/2023 blood glucose diagnostic (glucose blood) strip Use as directed up to four times a day. 100 each 1 03/11/2023 blood-glucose meter kit Use as directed. 1 kit 03/11/2023 glucagon (Baqsimi) 3 mg/actuation spray,non-aerosol One spray into one nostril once as directed by provider for low blood sugar. 1 each 03/25/2023 lancets misc Use as directed up to 4 times a day. 100 each 1 03/11/2023 amoxicillin-clavu lanate (AUGMENTIN) 875-125 mg per tabletIndications :Skin/Soft Tissue Infection Take 1 tablet by mouth 2 (two) times a day for 3 days 6 tablet 03/25/2023 3 fluconazole (DIFLUCAN) 200 mg tabletIndications :Skin/Soft Tissue Infection Take 4 tablets (800 mg total) by mouth daily for 3 days 12 tablet 03/25/2023 3 atorvastatin (LIPITOR) 20 mg tablet Take 1 tablet (20 mg total) by mouth nightly 30 tablet 1 03/25/2023 4 calcium carbonate (OS-KRISTY) 1,250 mg (500 mg elemental) tabletIndications :hypocalcemia Take 1 tablet (1,250 mg total) by mouth 2 (two) times a day 60 tablet 1 03/25/2023 4 doxycycline (doxycycline hyclate) 100 mg capsule 03/02/2023 4 dulaglutide (Trulicity) 0.75 mg/0.5 mL pen injector Inject 0.5 mL (0.75 mg total) under the skin once a week 2 mL 03/25/2023 4 ergocalciferol (VITAMIN D) 50,000 unit capsule Take 1 capsule (50,000 Units total) by mouth 2 (two) times a week for 15 doses 8 capsule 1 03/26/2023 4 fluconazole (DIFLUCAN) 200 mg tablet 03/25/2023 4 insulin glargine (LANTUS) 100 unit/mL (3 mL) pen for injection Inject 20 Units under the skin nightly 12 mL 03/25/2023 4 insulin lispro (ADMELOG) 100 unit/mL pen for injectionIndicati ons:type 1 diabetes mellitus Inject 10 Units under the skin 3 (three) times a day with meals 18 mL 03/25/2023 4 losartan (COZAAR) 25 mg tablet Take 1 tablet (25 mg total) by mouth daily 30 tablet 1 03/26/2023 4 metFORMIN (GLUCOPHAGE) 1,000 mg tablet Take 0.5 tablets (500 mg total) by mouth 2 (two) times a day with meals 60 tablet 03/25/2023 4 pen needle, diabetic (Pen Needle) 32 gauge x 5/32 needle Use as directed once a day. 100 each 03/25/2023 4 pen needle, diabetic 32 gauge x 5/32 needle Use as directed 3 times a day. 100 each 03/25/2023 4 traMADoL (ULTRAM) 50 mg tablet 03/02/2023 4 documented as of this encounter Discharge Disposition Disposition Code Departure Means Destination Comment s Discharge to home or self care documented in this encounter Progress Notes * Nesha Jaquez, SEMICONDUCTOR TECHNICIAN - 03/26/2023 8:25 AM CDT CCSW received handoff from EDSW: Patient was discharged home yesterday with HH setup. His neighbor was to assist with him getting into his home, when EMS arrived the house was locked up by the police due to it being condemned. Patient was brought back to ED for assistance with alternative living options. CCSW met with patient at bedside, patient provided information on what he needs assistance with. Patient does not want placement into a facility, states he would like to return to his home. Patient needs access to the house to retrieve things he needs (wallet, cell phone, etc.). CCSW inquired aboutwhat assistance patient needs with house being condemned, patient states he has no information as it happened while he was inpatient. CCSW contacted [place] police department and inspectors dept. Provided patient with information he needs to recifiy condemned notice placed on door. Patient also provided resources for cleaning services for his home. Patient plans to stay at motel as he was not ab le to stay with his friend. CÉSAR Gonzalez LCSW Complex Care Hot Dipper documented in this encounter ED Notes * Wander Orta Jr., MD - 03/25/2023 10:50 PM CDT HPI Chief Complaint Patient presents with Homeless 42 yo male discharged earlier today after being treated for a scrotal abscess and ange's gangrene. Patient was taken to his home by EMS, On arrival to his home he and EMS found the house was condemned by the city and the police would not let him enter the house which was locked up. EMS had to take the patient back to [facility] from which he was discharged. Patient was unable to return to his inpatient floor as the floor had no capacity to take another patient per patient placement and the house nurse supervisor road administrator. Patient was brought to the ED to be seen by the complex social work and case management teams. Patient is frustrated he can not enter his house and the home has been condemned. Patient's mother who he used to live with was placed in an assisted living facility. Patient has no where else to go or live. He has no other family. Pt has no current medical complaints. Reports his wounds are healing well. Per hospital leadership pt to remain in the ED as social work and case management attempt to find alternatives to inpatient admission. See social work consult notes. Pt denies fever, no current significant pain Patient History: Patient Active Problem List Diagnosis Date Noted Class 3 obesity ([facility]) 03/16/2023 Hypertension 03/16/2023 T1DM (type 1 diabetes mellitus) ([facility]) 03/10/2023 Vitamin D deficiency 03/10/2023 Diabetic foot ulcer (CMS/HCC) ([facility]) 03/10/2023 Anemia 03/10/2023 Scrotal abscess 03/06/2023 Perineal abscess 03/06/2023 Past Medical History: Diagnosis Date Hypertension 03/16/2023 Type 2 diabetes mellitus ([facility]) History reviewed. No pertinent surgical history. History reviewed. No pertinent family history. Social History Tobacco Use Smoking status: Never Smokeless tobacco: None Substance and Sexual Activity Alcohol use: None Drug use: None Sexual activity: None Social History Social History Narrative Not on file Review of Systems Review of Systems Constitutional: Negative for fever. HENT: Negative. Eyes: Negative. Respiratory: Negative. Cardiovascular: Negative. Gastrointestinal: Negative. Genitourinary: Negative for penile discharge, penile pain, penile swelling, scrotal swelling and testicular pain. Gential wounds healing Musculoskeletal: Negative for neck pain and neck stiffness. Diabetic foot ulcer healing Skin: Left diabetic foot ulcer Neurological: Negative. Psychiatric/Behavioral: Negative for agitation, hallucinations and suicidal ideas. Pt frustrated he can not go back and live in his house All other systems reviewed and are negative. Physical Exam ED Triage Vitals [03/25/232020] Temp Pulse Resp BP SpO2 36.6 ??C (97.9 ??F) 110 16 168/98 97 % Temp src Heart Rate Source Patient Position BP Location FiO2 (%) Oral Monitor -- -- -- Height Height Method Weight Weight Method -- -- -- -- Physical Exam Vitals and nursing note reviewed. Constitutional: General: He is not in acute distress. Appearance: Normal appearance. He is obese. He is not ill-appearing, toxic- appearing or diaphoretic. HENT: Head: Normocephalic and atraumatic. Right Ear: External ear normal. Left Ear: External ear normal. Nose: Nose normal. Mouth/Throat: Pharynx: Oropharynx is clear. Eyes: Extraocular Movements: Extraocular movements intact. Conjunctiva/sclera: Conjunctivae normal. Pupils: Pupils are equal, round, and reactive to light. Cardiovascular: Rate and Rhythm: Normal rate and regular rhythm. Comments: Pulse 88 when I examined him, when frustrated his heart rate increases Pulmonary: Effort: Pulmonary effort is normal. Breath sounds: Normal breath sounds. Abdominal: General: Bowel sounds are normal. There is no distension. Palpations: Abdomen is soft. Tenderness: There is no abdominal tenderness. There is no right CVA tenderness, left CVA tendernessor guarding. Musculoskeletal: General: Normal range of motion. Cervical back: Normal range of motion and neck supple. Skin: General: Skin is warm and dry. Capillary Refill: Capillary refill takes less than 2 seconds. Comments: Healing diabetic left foot ulcer Neurological: General: No focal deficit present. Mental Status: He is alert and oriented to person, place, and time. Psychiatric: Mood and Affect: Mood normal. Behavior: Behavior normal. Thought Content: Thought content normal. Judgment: Judgment normal. Comments: Frustrated over his current situation, no SI/HI, no psychosis, MDM Medical Decision Making Complex Social work and case management teams consulted, Risk OTC drugs. Prescription drug management. ED Course as of 03/26/23 1607 Time: 03/25 2035 Comment: Pt was discharged from the hospital a few hours ago after being treated for a scrotal abscess and fourniers gangrene. Was in the hospital for 3 weeks. When EMS attempted to return him to his house it was found to be condemned and the police would notlet him enter the house. EMS returned patient to the hospital. Patient had to come to the ED as the floor he was discharged from in the hospital had no open beds. Will consult social work and case management to evaluate options for him. Patient reports his only family is his mother who was sent to an assisted living facility. He has no other place to stay or go at this time. By: Wander Orta Jr., MD Time: 03/25 2211 Comment: Pt is being seen by the complex care social work and case management team, see the social work note. Patient to remain in the ED so social work and case management can find other potential outpatient discharge options for patient. May take 24 hours or so for social work/case management to find a possible solution By: Wander Orta Jr., MD Time: 03/26 31 Comment: Pt made aware he will remain in the ED until the complex social work and case management team see if an outpatient plan can be arranged, His refrigerated discharge meds are being refrigerated by ED nurse team. His home meds will be ordered while he remains in the ED By: Wander Orta Jr., MD Time: 03/26 101 Comment: Home meds written for, nursing to assist patient with wound care and dressing changes as needed and as patient instructed to perform at discharge By: Wander Orta Jr., MD Time: 03/26 146 Comment: Care signed over to Dr. Daly, pt remaining in ED awaiting complex social work and case management team to come up with a plan later today. See social work and case management consult notes, By: Wander Orta Jr., MD Time: 03/26 07 Comment: 42yo with recent admission for ange's gangrene, condemned house after discharge. complex care team meeting. Home meds ordered, wound care ordered By: Gianfranco Ballard MD Time: 03/26 100 Comment: Unfortunately, social work is unable to get this patient placed and patient as patient is refusing placement. His home is condemned but social work reports police have to let him in to retrieve his belongings. Patient plans on staying in a hotel. By: Kathe Luz MD Final diagnoses: Scrotal abscess Diabetic foot ulcer associated with type 1 diabetes mellitus, unspecified laterality, unspecified part of foot, unspecified ulcer stage (HCC) Ange gangrene - resolved Wander Orta Jr., MD 03/26/23 0101 Wander Orta Jr., MD 03/26/23 1607 * Elisa Buckner RN - 03/25/2023 7:52 PM CDT Pt returned to [facility] ED after being DC from 7900. Pt was previously admitted to 7900 for a rectal surgery. When EMS brought pt home today the house was condemned and PD was on scene. Pt brought back for placement. Pt ambulatory and A&Ox4. documented in this encounter Miscellaneous Notes * Plan of Care - Kristy Fagan RN - 03/25/2023 11:18 PM CDT 03/25/23 2316 Type Readmission </= 30 Days? Yes High Utilizer >/= 4 Hospitalizations in 12 Months? Yes Is this Patient Active with an Outpatient Case Management Program? No Record Review of Prior Admission Was this Readmission Planned? No Disposition at Prior Admit D/C Home, no service Was the D/C Location what the Care Team Recommended? Yes Functional Status at Index D/C Independent Cognitive Status at Index D/C A&O x3 Is Patient ACO No Patient Interview Patient Discharged prior to Interview No Did Patient have assigned PCP on Discharge? Yes Was Appointment made on Index Discharge? No Who Provided the Information Other (Comment) In Patient's own words, what led to return to Hospital Homeless as his home (upon admission to the hospital) was declared condemned during his 19 day LOS. Was Patient Discharged to Home Yes Did Patient Contact Provider prior to Admission No Primary Readmission Reason Other (Comment) ED CM received automated alert that patient has had an inpatient admission <30 days (ED treatment team aware).DX: Patient (is homeless) returned to the ED via EMS after DCing home earlier to discover his home was declared ???condemned.?? ED/SW is aware per consult in [facility] and Complex Care ED/[facility] attempt to assist the patient tomorrow.ED workup/orders/tx plan is pending at the time this note was entered.Please contact ED CM ([phone]) or ED SW ([phone]) for needs.NO SW needs identified. documented in this encounter Plan of Treatment Not on file documented as of this encounter Procedures Procedure Name Priority Date/Time Associated Diagnosis Comments POCT GLUCOSE DEVICE Routine 03/26/2023 9 :44 AM CDT POCT GLUCOSE DEVICE Routine 03/26/2023 2 :02 AM CDT documented in this encounter Results * POCT glucose (03/26/2023 9:44 AM CDT) Glucose, POC 187 70 - 199 mg/dL Blood 03/26/2023 9:44 AM CDT 03/26/2023 9:44 AM CDT us Kathe Luz MD LAB POCT ORDERABLE S - DEVICE Final Result Performing Organization Address [facility] Co de Phone Number [facility] Department [place] [address] * POCT glucose (03/26/2023 2:02 AM CDT) Glucose, POC 163 70 - 199 mg/dL Blood 03/26/2023 2:02 AM CDT 03/26/2023 2:02 AM CDT us Carolee Daly MD LAB POCT ORDERABLES - DEV ICE Final Result Performing Organization Address [facility] de Phone Number [facility] Department [place] [address] documented in this encounter Visit Diagnoses Diagnosis Scrotal abscess- Primary 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 Diabetic foot ulcer associated with type 1 diabetes mellitus, unspecified laterality, unspecified part of foot, unspecified ulcer stage (HCC) 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 documented in this encounter Administered Medications Inactive Administered Medications - up to 3 most recent administrations Medication Order MAR Action Action Date Dose Rate Site agrubniovnuvw-vmarbsf-s affeine (EXCEDRIN MIGRAINE) 250-250-65 mg per tablet 1 tablet 1 tablet, oral, 4 times daily PRN, 1st line for pain, headaches, Starting on Inna 03/26/23 at 0041, For 20 doses Given 03/26/2023 1:59 AM CDT 1 tablet amoxicillin-clavulanate (AUGMENTIN) 875-125 mg per tablet 875 mg of amoxicillin 875 mg of amoxicillin, oral, 2 times daily, First dose on Inna 03/26/23 at 0043, For 7 doses, Indications: infectionIndications:in fection Given 03/26/2023 10:06 AM CDT 875 mg of amoxicillin Given 03/26/2023 2:00 AM CDT 875 mg of amoxicillin atorvastatin (LIPITOR) tablet 20 mg 20 mg, oral, Daily, First dose on Inna 03/26/23 at 0900, For 4 doses calcium carbonate (OS-KRISTY) tablet 1,250 mg 1,250 mg (500 mg of elemental calcium), oral, 2 times daily, First dose on Inna 03/26/23 at 0045, For 10 doses Given 03/26/2023 2:00 AM CDT 1,250 mg fluconazole (DIFLUCAN) tablet 800 mg 800 mg, oral, Daily, First dose on Inna 03/26/23 at 0900, For 3 doses, Indications: infectionIndications:infecti on insulin glargine (LANTUS, SEMGLEE) 100 unit/mL injection 20 Units 20 Units, subcutaneous, Nightly, First dose on Inna 03/26/23 at 0048, For 5 doses, Do not mix with other insulins Given 03/26/2023 2:09 AM CDT 20 Units Right Lower Abdomen insulin lispro (HumaLOG, ADMELOG) 100 unit/mL injection 10 Units 10 Units, subcutaneous, 3 times daily with meals, First dose on Inna 03/26/23 at 0048, For 15 doses losartan (COZAAR) tablet 25 mg 25 mg, oral, Daily, First dose on Inna 03/26/23 at 0900, For 5 doses Given 03/26/2023 10:06 AM CDT 25 mg metFORMIN (GLUCOPHAGE) tablet 500 mg 500 mg, oral, 2 times daily with meals (bkfst, dinner), First dose on Inna 03/26/23 at 0800, For 10 doses, Take with food Given 03/26/2023 10:06 AM CDT [address] (PROTONIX) extended release tablet 20 mg 20 mg, oral, Daily, First dose on Inna 03/26/23 at 0900, For 5 doses, Do not crush, chew, cut, dissolve, open or otherwise manipulate tablet/capsule., Indications: Stress Ulcer ProphylaxisIndications:Stres s Ulcer Prophylaxis documented in this encounter Active and Recently Administered Medications Times are shown in CDT. Scheduled Medication Order 03/24/2023 03/25/2023 03/26/2023 amoxicillin-clavulanate (AUGMENTIN) 875-125 mg per tablet 875 mg of amoxicillin 875 mg of amoxicillin, oral, 2 times daily, First dose on Inna 03/26/23 at 0043, For 7 doses, Indications: infection 0200 (Given - Provid er: Elisa Buckner RN)1006 (Given - Provider: Vignesh Pinto RN) atorvastatin (LIPITOR) tablet 20 mg 20 mg, oral, Daily, First dose on Inna 03/26/23 at 0900, For 4 doses 1129 (Not Given - Pr ovider: Vignesh Pinto RN - Reason: Other) calcium carbonate (OS-KRISTY) tablet 1,250 mg 1,250 mg (500 mg of elemental calcium), oral, 2 times daily, First dose on Inna 03/26/23 at 0045, For 10 doses 0200 (Given - Provid er: Elisa Buckner RN)1130 (Not Given - Provider: Vignesh Pinto RN - Reason: Other) fluconazole (DIFLUCAN) tablet 800 mg 800 mg, oral, Daily, First dose on Inna 03/26/23 at 0900, For 3 doses, Indications: infection 1129 (Not Given - Pr ovider: Vignesh Pinto RN - Reason: Other) insulin glargine (LANTUS, SEMGLEE) 100 unit/mL injection 20 Units 20 Units, subcutaneous, Nightly, First dose on Inna 03/26/23 at 0048, For 5 doses, Do not mix with other insulins 0209 (Given - Provid er: Elisa Buckner RN) insulin lispro (HumaLOG, ADMELOG) 100 unit/mL injection 10 Units 10 Units, subcutaneous, 3 times daily with meals, First dose on Inna 03/26/23 at 0048, For 15 doses 0204 (Not Given - Pr ovider: Elisa Buckner RN - Reason: Patient/family refused - Comment: pt refused bc he has not ate)1005 (Not Given - Provider: Vignesh Pinto RN - Reason: Other)1200 (Due) losartan (COZAAR) tablet 25 mg 25 mg, oral, Daily, First dose on Inna 03/26/23 at 0900, For 5 doses 1006 (Given - Provid er: Vignesh Pinto RN) metFORMIN (GLUCOPHAGE) tablet 500 mg 500 mg, oral, 2 times daily with meals (bkfst, dinner), First dose on Inna 03/26/23 at 0800, For 10 doses, Take with food 1006 (Given - Provid er: Vignesh Pinto RN) pantoprazole DR (PROTONIX) extended release tablet 20 mg 20 mg, oral, Daily, First dose on Inna 03/26/23 at 0900, For 5 doses, Do not crush, chew, cut, dissolve, open or otherwise manipulate tablet/capsule., Indications: Stress Ulcer Prophylaxis 1130 (Not Given - Pr ovider: Vignesh Pinto RN - Reason: Other) PRN Medication Order 03/24/2023 03/25/2023 03/26/2023 nnxkjmuubvxuv-bfufveg-evfqhyfc (EXCEDRIN MIGRAINE) 250-250-65 mg per tablet 1 tablet 1 tablet, oral, 4 times daily PRN, 1st line for pain, headaches, Starting on Inna 03/26/23 at 0041, For 20 doses 0159 (Given - Provid er: Elisa Buckner RN) documented in this encounter Orders Medications Ordered That Steffen ht Not Have Been Administered Count Last Ordered Date First Ordered Date atorvastatin (LIPITOR) tablet 20 mg 1 03/26 fluconazole (DIFLUCAN) tablet 800 mg 1 03/08 insulin lispro (HumaLOG, ADM ELOG) 100 unit/mL injection 10 Units 1 03/26/[address] (PROTONIX) e xtended release tablet 20 mg 1 03/26/2023 Lab Orders Without Results Count Last Ordered D ate First Ordered Date POCT GLUCOSE DEVICE 1 03/26/2023 documented in this encounter Care Teams Film Writer Relationship Specialty Start Date End Date Herb Burden MD [address] [place] [id number] PCP - General Family Practice 03/25/23 07/27/23 Carissa Cancino, SEMICONDUCTOR TECHNICIAN [address] [facility] ([facility] Mailstop [phone] [place] [address] SHOP Outpatient Archives Specialist 03/26/23 03/30/23 documented as of this encounter
--- OUTSIDE RECORDS SUMMARY | 2024-06-08 00:07 | XMS_ITS | Encounter Summary ---
Author Organization [facility] Healthcare Address [address] [place] [address] Care Team Providers Care Kennel Helper Name Role Phone Herb Burden MD Primary Care Provider + [phone] Carissa Cancino TRIM ATTACHER Unavailable [phone] Reason for Visit * Reason Comments Unsuccessful Phone Call 1 Encounter Details Date Type Department Care Team (Late st Contact Info) Description 03/26/2023 SHOP/[facility]AP Initial Outreach [facility] OP CASE MANAGEMENT [address] [place] [address] Carissa Cancino, TRIM ATTACHER [address] [facility] [place] [place] Mailstop [phone] [place] [address] Social History Tobacco Use Types [...] on file 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 [address] [place] [phone] PCP - General Family Practice 03/25/23 07/27/23 Carissa Cancino, TRIM ATTACHER [address] [facility] [place] [place] Mailstop [phone] [place] [address] SHOP Outpatient Facilities Locator 03/26/23 03/30/23 documented as of this encounter
--- OUTSIDE RECORDS SUMMARY | 2024-06-08 00:07 | XMS_ITS | Encounter Summary ---
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 In the event that he finds somewhere to live, we will need new HH orders to send to [facility] HH occupational psychologist again. Kristy MARIE Notified. documented in this encounter Plan of Treatment Not on file documented as of this encounter Visit Diagnoses Not on filedocumented in this encounter Care Teams Shuttle Truck Driver Relationship Specialty Start Date End Date Herb Burden MD [address] [facility] [address] [place] [address] PCP - General Family Practice 03/25/23 07/27/23 Carissa Cancino LCSW [address] [facility] ([facility] [place]) Mailstop [phone] [place] [address] SHOP Outpatient Housing And Residence Life Director 03/26/23 03/30/23 documented as of this encounter
--- OUTSIDE RECORDS SUMMARY | 2024-06-08 00:08 | XMS_ITS | Encounter Summary ---
Author Organization [facility] Healthcare Address [address] [place] [address] Care Team Providers Care Credit Investigator Name Role Phone No, Physician Primary Care Provider [phone] Herb Burden MD Primary Care Provider [phone] Reason for Visit * Reason Comments Groin Swelling * Auth/Cert (Routine) Specialty Diagnoses / Procedures Referred By Padmini t Referred To Contact Diagnoses Scrotal abscess Perineal abscess FOUNIER'S GANGRENE Procedures na Referral ID Status Reason Start Date Expiration Date Visits Re quested Visits Authorized [id number] 1 1 Encounter Details Date Type Department Care Team (Latest Contact Info) Description 03/06/2023 10:24 AM CDT - 03/25/2023 5:01 PM CDT Hospital Encounter [address] [phone] Lissette Andrews MD [address] [place] [address] Carolee Daly MD [address] [place] [address] Carmen Monte MD [address] [place] [address] Deanna Thompson MD PhD [address] [place] [address] Ursula Ferro MD [address] [facility] [phone] [place] [address] Hans Negron MD [address] [facility] [place] [address] Neno Lei MD [address] [place] [address] Evy Chong MD [address] [place] [address] Lamonte Guzmán MD [address] [place] [address] Scrotal abscess (Primary Dx); Perineal abscess; Yamila's gangrene; Type 1 diabetes mellitus with ketoacidosis without coma ([facility]/HCC) ([facility]) Discharge Disposition: Discharge to home, home health skilled care Social History Tobacco Use Types Packs/Day [...] on file Legal Sex Male 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 Gender Identity Not on file Sexual Orientation Not on file documented as of this encounter Last Filed Vital Signs Vital Sign Reading Time Taken Comments Blood Pressure 138/72 03/25/2023 12:15 PM CDT Pulse 82 03/25/2023 12:15 PM CDT Temperature 36.9 ??C (98.5 ??F) 03/25/2023 1 2:15 PM CDT Respiratory Rate 16 03/25/2023 12:1 5 PM CDT Oxygen Saturation 97% 03/25/2023 12: 15 PM CDT Inhaled Oxygen Concentration - - Weight 161.7 kg (356 lb 7.7 oz) 03/06/2023 7:40 PM CDT Height 198.1 cm (6' 6 ) 03/06/2023 7:40 PM CDT Body Mass Index 41.2 03/06/2023 7:40 PM CDT documented in this encounter Discharge Summaries * Ira Starks, SOFTWARE TECHNICIAN - 03/25/2023 3:33 PM CDT Inpatient Discharge Summary BRIEF OVERVIEW Admitting Provider: Hans Negron MD Discharge Provider: Lamonte Guzmán MD Primary Care Physician at Discharge: Herb Burden MD [phone] Admission Date: 03/06/2023 Discharge Date: 03/25/2023 Admission Location: [facility] Problems/Diagnoses: Principal Problem: Scrotal abscess Active Problems: T1DM (type 1 diabetes mellitus) (HCC) Diabetic foot ulcer (CMS/HCC) (HCC) Hypertension Vitamin D deficiency Anemia Class 3 obesity (HCC) Resolved Problems: Yamila's gangrene Adjustment disorder DETAILS OF HOSPITAL STAY Presenting Problem/History of Present Illness: Mr. 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 He was started on clindamycin, cefe/vanc and transferred to [facility] on 03/06for urology evaluation. On presentation, he denies systemic symptoms. He was noted to have WBC 17.3 with PMN predominance, ESR 103, CRP 272.2. CTAP w contrast: extensive soft tissue thickening throughout the scrotum extending towards the peroneal surface posteriorly, 7.5 cm subcutaneous fluid collection with air collections suggesting abscess, LN along iliac denane chians and inguinal regions. He was taken to the OR on 03/06 with ACCS and urology for I&D and debridement. The joint procedure was notable for purulent fluid and necrotic tissue found extending down to the anus tracking up the scrotum and into the inguinal canals. Urology I&D the abscess and debrided the necrotic tissue. ACCS present as well and i ntra-op KARLA with no communciation of wound base to rectum. Per urology, the presentation was consistent with scrotal cellulitis with significant swelling but no signs of Yamila's gangrene. He underwent another debridement and wound vac placement with urology on 03/07. He returned to the OR today for debridement and partial closure of wound vac with urology, cultures were also sent. He was on martha, vanc at [facility]. His culture results are as follows: BCx 03/06 with NGTD Scrotal Abscess cx 03/06: abundant strep anginosus, mixed organisms Scrotal Tissue cx 03/06: moderate strep anginosus, mixed organisms Scrotal Abscess cx 03/10: abundant GPCs Scrotal tissue cx 03/10: moderate GPCs ID was consulted for antibiotic regimen recommendations on 03/09. They recommended to stop vanc/meroand start unasyn 3g q6 hrs. Podiatry was consulted for L foot ulcer and is now s/p bedside debridement. L foot XR with no evidence of osteomyelitis. He was also noted to have DKA on admission with no prior known history of diabetes. His A1c 13.3, noted to have AGMA, 2+ ketones in urine, and +serum beta hydroxybutyrate. He was managed with insulingtt with endocrinology consultation, his gap closed and DKA resolved and is no transitioned to basal/bolus regimen. Hospital Course: Mr. Rene Hyatt is a 42 year old male who presented to [place] ED with a chief complaint of perineal / scrotal pain and swelling and a foot ulcer. CT there showed a perineal fluid collection / abscess with gas in the collection and he was transferred to [place] for surgical care. 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 PT denies SIRS. With neutrophilic leukocytosis and elevated inflammatory markers. CTAP w contrast w/ scrotal soft tissue thickening and subQ fluid / air suggesting abscess. S/p OR 03/06 with urology and ACCS for I&D of abscess and debridement. No tracking to rectum. S/p wound vac placement with urology. 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 Op cultures 03/06 growing strep anginosus and mixed organisms. Returned to OR 03/12 with urology with debridement of wound, wound closure and drain p laced. Op culture 03/10 growing mixed organisms and destiny glabrata susceptibility to fluconazole. He was treated with Unasyn (03/09- 03/25) and Micafungin 100 mg IV (03/15- 03/25) and was then transitioned to Augmentin 875/125 BID and Fluconazole 800mg every day at discharge to complete 14 day course (end date 03/28). Urology removed drain prior to discharge and wound was evaluated by wound RN with wound care instruction placed at discharge. Hypertension Blood pressure modestly elevated. Started losartan 25mg 03/17. Continued at discharge. Diabetic foot ulcer Wound to planter 1st metatarsal head. S/p debridement with podiatry 03/07, significant depth but negative probe to bone. L foot XR with no OM. - WBAT in heel strike shoe per PT. Diabetic shoes with custom offloading inserts for basketballs and footballs reverser shoe gear. Home health RN to continue wound care. Vitamin D deficiency Undetectable Vit D Level Started on vit d 50k international units twice weekly and calcium supplementation for x3 months. Plan for vit d 2k daily after 50k loading phase. Will need to follow up with PCP. T1DM (type 1 diabetes mellitus) Newly diagnosed this admission. Endocrinology consulted. Patient started on basal bolus insulin regimen. Insulin Ab, IA-2 Ab, ZNT8 Ab neg, GAD65 0.31 (<0.02). Started atorvastatin 20 mg daily. Final regimen at discharge Glargine 20 units qHS + Lispro 10 units TID AC + Metformin 500 mg PO BID + Trulicity 0.75 mg SC q weekly. Active Issues Requiring Follow-up: Follow up with PCP as scheduled 04/01/23 at 10:40 am per N Coordinator Ambulatory referral placed for follow up with Endocrinology Test Results Pending at Discharge: Pending Labs Order Current Status Basic metabolic panel In process Hemoglobin A1c In process Hepatic function panel In process Lipid panel In process Type and screen In process Vitamin D 25 hydroxy In process Operative Procedures Performed: Procedure(s): DEBRIDEMENT PERINEAL WOUND COMPLEX WOUND CLOSURE Other Procedures: XR Wrist Left 3 or More Views [[id number]] Collected: 03/13/231832 Order Status: Completed Updated: 03/13/231834 Narrative: EXAMINATION: XR WRIST LEFT 3 OR MORE VIEWS HISTORY: Left wrist pain FINDINGS: 3 views of the left wrist are submitted without comparison. Alignment is normal. There is no fracture. Minimal 1st carpometacarpal osteoarthritis. Mild soft tissue swelling of the left wrist. Impression: No left wrist fracture. Electronically signed by: Juan Jeter MD Arterial Duplex Lower Extremity Bilateral [[id number]] Collected: 03/06/23 1352 Order Status: Completed Updated: 03/07/23 1224 Narrative: [facility] - Department of Vascular Surgery, Vascular Laboratory [address] [place] [address] [place] Lower Extremity Arterial Duplex Report Patient Name: RENE HYATT M : 1980 Study Date: 03/06/2023 1:52:30 PM Gender: M Tech: Location: [facility] Ref.Provider: ANIL BIRMINGHAM Quality: Adequate Order Provider: ANIL BIRMINGHAM Procedures: Arterial Report: Bilateral Lower Extremity Arterial Duplex Exam. Indications: Left foot metatarsal base ulcer, and left big toe ulcer, did not know he has diabetes. Measurements: Right Lower Left Lower Measurement Value Units Measurement Value Units Rt BULB GRADER Dst PSV 93 cm/s Lt BULB GRADER Dst PSV 154 cm/s Rt Profunda Prx PSV 51 cm/s Lt Profunda Prx PSV 86 cm/s Rt Superficial Femoral Prx PSV 106 cm/s Lt Superficial Femoral Prx PSV 145 cm/s Rt Superficial Femoral Mid PSV 90 cm/s Lt Superficial Femoral Mid PSV 130 cm/s Rt Superficial Femoral Dst PSV 73 cm/s Lt Superficial Femoral Dst PSV 86 cm/s Rt Popliteal Artery 90 cm/s Lt Popliteal Artery 115 cm/s Rt Post Tibial Prx PSV 86 cm/s Lt Post Tibial Prx PSV 92 cm/s Rt Post Tibial Mid PSV 96 cm/s Lt Post Tibial Mid PSV 97 cm/s Rt Post Tibial Dst PSV 83 cm/s Lt Post Tibial Dst PSV 90 cm/s Rt Ant Tibial Prx PSV 77 cm/s Lt Ant Tibial Prx PSV 113 cm/s Rt Ant Tibial Mid PSV 73 cm/s Lt Ant Tibial Mid PSV 133 cm/s Rt Ant Tibial Dst PSV 75 cm/s Lt Ant Tibial Dst PSV 122 cm/s Rt Peroneal Prx PSV 67 cm/s Lt Peroneal Prx PSV 76 cm/s Rt Peroneal Mid PSV 54 cm/s Lt Peroneal Mid PSV 62 cm/s Rt Peroneal Dst PSV 52 cm/s Lt Peroneal Dst PSV 77 cm/s Measurement Value Units Measurement Value Units Right Lower Left Lower - Findings: Performing Director Of Database Marketing: Anca Alexis RVT ([place]). Right Common Femoral: The right common femoral waveform is multiphasic. Right Profunda: The right profunda waveform is multiphasic. Right Proximal Superficial Femoral Artery: The right proximal femoral artery waveform is multiphasic. Right Mid Superficial Femoral Artery: The right mid femoral artery waveform is multiphasic. Right Distal Superficial Femoral Artery: The right distal femoral artery waveform is multiphasic. Right Popliteal: The right popliteal waveform is multiphasic. Right Posterior Tibial: The right posterior tibial waveform is multiphasic. Right Anterior Tibial: The right anterior tibial waveform is multiphasic. Right Peroneal: The right peroneal artery waveform is multiphasic. Left Common Femoral: The left common femoral waveform is multiphasic. Left Profunda: The left profunda waveform is multiphasic. Left Proximal Superficial Femoral Artery: The left proximal femoral artery waveform is multiphasic. Left Mid Superficial Femoral Artery: The left mid femoral artery waveform is multiphasic. Left Distal Superficial Femoral Artery: The left distal femoral artery waveform is multiphasic. Left Popliteal: The left popliteal waveform is multiphasic. Left Posterior Tibial: The left posterior tibial waveform is multiphasic. Left Anterior Tibial: The left anterior tibial waveform is multiphasic. Left Peroneal: The left peroneal artery waveform is multiphasic. Conclusions: 1. Duplex imaging of the bilateral lower extremity [place] arteries reveals patent vessels with no flow limiting lesions identified. Flow velocities as measured above. See Ankle Brachial Index report. 2. See Ankle/ Brachial Index report. History: Not identified. Previous Studies: No previous studies for comparison. Disclaimer: The study images and the final report will be retained in the patient chart by the Vascular Laboratory for the legally required time period. This chart constitutes the legal record of any testing performed. Attestation: I have reviewed and interpreted the pertinent images and measurements of this study. I attest to the conclusions in the final report that is provided above. Electronically Signed By: Alberto Ching MD [facility] 2023-03-07 12:23:36 CDT CC: CC: US Arterial Doppler Lower Extremity Bilateral [[id number]] Collected: 03/06/23 1353 Order Status: Completed Updated: 03/07/23 1241 Narrative: [facility] - Department of Vascular Surgery, Vascular Laboratory [address] [place] [address] Lower Extremity Arterial Doppler Report Patient Name: RENE HYATT M : 1980 Study Date: 03/06/2023 1:53:00 PM Gender: M Tech: Anca Alexis Rvt Location: [facility] Ref.Provider: ANIL BIRMINGHAM Quality: Adequate Order Provider: ANIL BIRMINGHAM Procedures: Arterial Report: Bilateral lower extremity arterial Doppler exam at rest. Indications: Left foot metatarsal base ulcer, and left big toe ulcer, did not know he has diabetes, bilateral leg swelling. Measurements: Right - Left - Measurement Value Units Measurement Value Units Rt Brachial Pressure 100 mmHg Lt Brachial Pressure 110 mmHg Rt AUTOMOBILE LIGHTS ASSEMBLER Pressure 162 mmHg Lt AUTOMOBILE LIGHTS ASSEMBLER Pressure 158 mmHg Rt DPA Pressure 159 mmHg Lt DPA Pressure 159 mmHg Rt 1st Digit Pressure >254 mmHg Lt 1st Digit Pressure >254 mmHg Rt PT MOSES Resting NC Lt PT MOSES Resting NC Rt AT MOSES Resting NC Lt AT MOSES Resting NC Rt Digit/Arm Index NC Lt Digit/Arm Index NC Measurement Value Units Measurement Value Units Right - Left - - Findings: Performing Director Of Database Marketing: Anca Alexis RVT ([place]). Bilateral All Levels : The bilateral common femoral, popliteal, posterior tibial and anterior tibial artery waveforms are multiphasic. Right Digits: Normal right digit non compressible pressure with normal waveform. Left Digits: Normal left digit non compressible pressure with normal waveform. Conclusions: 1. The ankle arteries are non-compressible bilaterally which is consistent with arterial calcification thus the Ankle/Brachial Indices are not obtainable. 2. Bilateral toe pressures were non compressible. History: Not identified. Previous Studies: No previous studies for comparison. Disclaimer: The study images and the final report will be retained in the patient chart by the Vascular Laboratory for the legally required time period. This chart constitutes the legal record of any testing performed. Attestation: I have reviewed and interpreted the pertinent images and measurements of this study. I attest to the conclusions in the final report that is provided above. Electronically Signed By: Alberto Ching MD [facility] 2023-03-07 12:41:16 CDT CC: CC: XR Foot Left 3 or More Views [[id number]] Collected: 03/06/23714 Order Status: Completed Updated: 03/06/23728 Narrative: EXAM DESCRIPTION: XR FOOT LEFT 3 OR MORE VIEWS REASON FOR STUDY: pain Pt states diabetic foot ulcer for 4 years TECHNIQUE: 3 radiographic view(s) of the left foot . COMPARISON: None available FINDINGS: BONES/JOINTS: Obliquely oriented lucency through the base of the 5th metatarsal that is most characteristic of an os vesalianum pedis although chronic fracture nonunion could have a similar appearance. No definite acute fracture or malalignment. Normal bone mineralization. Joint spaces are maintained. SOFT TISSUES: 1.1 cm soft tissue defect about the ventral forefoot seen on the lateral view. No soft tissue emphysema or erosion of the underlying bone. Soft tissues are otherwise unremarkable. IMPRESSION: No definite acute osseous abnormality. 1.1 cm soft tissue defect about the plantar forefoot with no soft tissue emphysema or radiographic evidence of osteomyelitis. If clinical concern, MRI is more sensitive for early bone changes. Obliquely oriented lucency through the base of the 5th metatarsal most characteristic of an os vesalianum pedis although chronic fracture nonunion could have a similar appearance and clinical correlation is needed. THIS IS AN ELECTRONICALLY VERIFIED FINAL REPORT 03/06/2023 7:26 AM - Electronically signed by Javier Owusu M.D. AG: JUSTINA Report ID: [id number] Reading Location: [id number] XR Chest 1 Vw Portable [[id number]] Collected: 03/06/23654 Order Status: Completed Updated: 03/06/23657 Narrative: EXAM DESCRIPTION: XR CHEST 1 VIEW REASON FOR STUDY: sob, sob Pt states cough off and on for his entire life TECHNIQUE: Single-view COMPARISON: None available FINDINGS: Central vascularity mildly prominent. Perihilar interstitial densities could indicate vascular congestion or peribronchial inflammation. No consolidation, effusion or pneumothorax. IMPRESSION: Perihilar densities could indicate vascular congestion or peribronchial inflammation. THIS IS AN ELECTRONICALLY VERIFIED FINAL REPORT 03/06/2023 6:55 AM - Electronically signed by Wander García M.D. RB: SALLY Report ID: [id number] Reading Location: [id number] CT Abdomen Pelvis W Contrast [[id number]] Collected: 03/06/23634 Order Status: Completed Updated: 03/06/23648 Narrative: EXAM DESCRIPTION: CT ABDOMEN PELVIS W CONTRAST REASON FOR STUDY: Abdominal infection suspected, is there abscess or cellulitis c/o scrotal pain x 2 weeks. Pt reports that he had an infection in his buttcrack that went down to his scrotum TECHNIQUE: CT scan of the abdomen and pelvis performed with intravenous and without oral contrast using helical scanning technique with dynamic intravenous contrast injection. Reconstructed coronal and sagittal MPR images reviewed. All images stored on PACS. Automated exposure control was used as a dose optimization technique for this examination. CONTRAST TYPE/DOSE: 100mL of IOVERSOL 350 MG IODINE/ML INTRAVENOUS SYRINGE injected via intravenous COMPARISON: None available REFERENCE: Per ACR white paper recommendations, unless otherwise specified no follow-up imaging is recommended for incidental renal and adrenal lesions per consensus recommendations based on imaging criteria. Further lab evaluation could be pursued based on clinical findings. FINDINGS: LOWER CHEST: No significant pulmonary abnormalities. No effusion. LIVER: Normal size. No identified cystic or solid masses. GALLBLADDER: Normally distended BILE DUCTS: No intrahepatic or extrahepatic ductal dilatation. SPLEEN: Normal size. No focal lesions. PANCREAS: No identified cystic or solid masses. No significant calcifications. No adjacent inflammation or peripancreatic fluid collections. Pancreatic duct not dilated. ADRENALS: Normal. KIDNEYS/URINARY TRACT: No identified significant cystic or solid masses. No visualized stones. No hydronephrosis or hydroureter. Symmetric enhancement. Urinary bladder is unremarkable. GI: No dilated bowel loops. No obvious wall thickening. Normal appendix. No significant diverticular disease. PERITONEUM: No ascites or free air. RETROPERITONEUM: Moderate-sized lymph nodes along the iliac deanne chains and inguinal regions. Smaller lymph nodes along the retroperitoneum. REPRODUCTIVE: Soft tissue thickening throughout the scrotum hydroceles. This becomes contiguous with additional swelling extending towards the peroneal surface posteriorly. Subcutaneous oval lesion measures 7.5 by 4.9 cm suggesting a subcutaneous fluid collection or abscess. Central lucencies consistent with air collections. This could represent a cellulitis with abscess. However, consider necrotizing fasciitis/Yamila's gangrene. VASCULATURE: No abdominal aortic aneurysm. MUSCULOSKELETAL: No significant abnormality. OTHER: No other abnormality. IMPRESSION: Extensive soft tissue thickening throughout the scrotum extending towards the peroneal surface posteriorly. 7.5 cm subcutaneous fluid collection with air collections suggesting abscess. However, consider necrotizing fasciitis/Yamila's gangrene. Moderate-sized lymph nodes along the iliac deanne chains and inguinal regions likely reactive in nature. THIS IS AN ELECTRONICALLY VERIFIED FINAL REPORT 03/06/2023 6:46 AM - Electronically signed by Wander García M.D. Pertinent Test Results: Recent Results (from the past 24 hour(s)) POCT glucose Collection Time: 03/24/23 4:50 PM Result Value Ref Range Glucose, POC 155 70 - 199 mg/dL POCT glucose Collection Time: 03/24/23 9:47 PM Result Value Ref Range Glucose, POC 163 70 - 199 mg/dL POCT glucose Collection Time: 03/25/23 1:36 AM Result Value Ref Range Glucose, POC 192 70 - 199 mg/dL POCT glucose Collection Time: 03/25/23 4:51 AM Result Value Ref Range Glucose, POC 198 70 - 199 mg/dL POCT glucose Collection Time: 03/25/23 8:19 AM Result Value Ref Range Glucose, POC 187 70 - 199 mg/dL POCT glucose Collection Time: 03/25/23 12:14 PM Result Value Ref Range Glucose, POC 221 (H) 70 - 199 mg/dL Discharge Details Physical Exam at Discharge: Discharge Condition: stable Pulse: 82 Resp: 16 BP: 138/72 Temp: 36.9 ??C (98.5 ??F) Weight: (!) 161.7 kg (356 lb 7.7 oz) Pertinent Exam Findings at Discharge: Vitals reviewed. Constitutional: General: He is not in acute distress. Appearance: Normal appearance. He is obese. HENT: Head: Normocephalic and atraumatic. Mouth/Throat: Mouth: Mucous membranes are moist. Eyes: General: No scleral icterus. Extraocular Movements: Extraocular movements intact. Conjunctiva/sclera: Conjunctivae normal. Cardiovascular: Rate and Rhythm: Normal rate and regular rhythm. Pulses: Normal pulses. Heart sounds: No murmur heard. Pulmonary: Effort: Pulmonary effort is normal. Breath sounds: Normal breath sounds. No wheezing, rhonchi or rales. Abdominal: General: Bowel sounds are normal. Palpations: Abdomen is soft. Tenderness: There is no abdominal tenderness. Musculoskeletal: General: Normal range of motion. Right lower leg: No edema. Left lower leg: No edema. Skin: General: Skin is warm and dry. Comments: Scrotal drain removed. Left foot wound, dressing CDI. Left plantar great toe wound, dry necrotic. Posterior scrotal wound, incision closed with sutures, minimal slough noted in incision line. Evaluated by Urology. Neurological: General: No focal deficit present. Mental Status: He is alert and oriented to person, place, and time. Mental status is at baseline. Psychiatric: Mood and Affect: Mood normal. Behavior: Behavior normal. Discharge Disposition: Discharge to home, home health skilled care Code Status at Discharge: FULL CODE Discharge Instructions: Activity Instructions Discharge activity: Resume normal activity Diet Instructions Adult Discharge Diet Diet Type: Other (specify) Explanatory Comment: diabetic diet Consistent Carbohydrate Diet: Recommended to continue to follow a consistent carbohydrate diet upondischarge. Nutrition Tips for Blood Glucose Management: Consume balanced meals and snacks including a variety of fruits, vegetables, whole grains, low-fat dairy products, beans, lean meats, and fish. Eat 3 meals per day and try to eat at consistent times. A carbohydrate choice = 15 grams of carbohydrates. Make sure to check nutritional labels for carbohydrate content. Eat 45-60 g or 3-4 carbohydrate choices at each meal. It is not recommended to go longer than 5 hours without having a meal or snack during the day. Consume foods high in fiber such as popcorn, oatmeal, beans, and legumes. Limit intake of concentrated sweets such as cookies, cake, candy, and ice cream. Limit sugar-sweetened beverages such as lemonade, sweet tea, regular soda, juice, and Gatorade. Suggestions for sugar free beverages include: G2 gatorade, SF powerade, and SF Liquid IV. Recommend to follow up with your Primary Care Doctor to ask about seeing a Registered Dietitian. Additional resources available from the [place] [employer] can be found at www.diabetes.org/nutrition Other Instructions Ambulatory referral to Home Health Service Line: Home Health Primary disciplines requested: Senior Living Home Health Services: Disease and Medication Management Wound/Ostomy Care Does the patient have a wound vac?: No Wound Information: scrotal wound and left foot wound Requested Start of Care Date: 24-48 hours Physician to follow patient's care (the person listed here will be responsible for signing ongoing orders): PCP I attest that I or another qualified licensed provider saw the patient 90 days prior to or 30 days post admission and this face to face encounter meets the necessary Home Health requirements. The face to face encounter occurred on (date): 03/24/2023 The encounter with the patient was in whole, or in part, for the following medical condition, whichis the primary reason for home health care. (List medical condition): right scrotal abscess, debility I certify that, based on my findings, the following services are medically necessary skilled home health services: Wound/Ostomy Care Clinical findings that support the need for home care: Medical condition requiring skilled assessment/education I certify that my clinical findings support patient's homebound status. Homebound criteria met because: Requires assistance of another to leave home safely Abnormal gait/unsteady balance resulting in fall risk Call provider for: Temperature -Temperature greater than 101 degrees F Call provider for: redness, tenderness, or signs of infection (pain, swelling, redness, odor or green/yellow discharge around incision site) Call provider for: severe uncontrolled pain Post-Discharge Dressing Care (Specify Details) Left Foot: Would recommend cleansing with wound cleanser, apply Intra-site gel to wound base, coverwith an Allevyn GB dressing. Change dressing every other day and as needed. Scrotum and scrotal surgical incision: painting with Betadine solution, allow to dry and leave opento air. Special Instructions You were seen and evaluation for a scrotal wound with infection. You were evaluated by Urology and incision and debridement was completed with drain placement and wound closure. You were started on IV antibiotics and antifungal per cultures obtained from wound. Please complete Augmentin twice daily and Fluconazole daily as prescribed. If you notice increased drainage from incision or wound, malodorous drainage, fever, chills or worsening scrotal pain, please return to ER for further evaluation. Special Instructions You were started on several new medications for elevated blood pressure, vitamin D deficiency and newly diagnosed diabetes. Please take all of these medications as prescribed. You will need to follow up with your primary care provider regarding additional titration of these mediations. A referral was placed with Endocrinology for follow up and additional management of yourdiabetes. Continue to manage wound and wound care as instructed. Home health will also assist as instructed. Daily hygenic practices to scrotum with mild soap, keep dry, do not submerge area under water untilcompletely healed. Home Health agency: [facility] Home [facility] (P: [phone]) You should be contacted by the home health care agency within 1-2 days regarding scheduling a visit. If you don't hear from them, please call the number listed above to follow-up. Thank you Discharge Medications: Current Medications TAKE these medications pqkyzszvgxcms-[id number] 250-250-65 mg per tablet Take 1 tablet by mouth daily as needed for headaches or pain For: pain Commonly known as: EXCEDRIN MIGRAINE alcohol swabs pads, medicated Use as directed. Commonly known as: Alcohol Wipes amoxicillin-clavulanate 875-125 mg per tablet Take 1 tablet by mouth 2 (two) times a day for 3 days For: Skin/Soft Tissue Infection Commonly known as: AUGMENTIN atorvastatin 20 mg tablet Take 1 tablet (20 mg total) by mouth nightly Commonly known as: LIPITOR Baqsimi 3 mg/actuation spray,non-aerosol One spray into one nostril once as directed by provider for low blood sugar. Generic drug: glucagon blood-glucose meter kit Use as directed. calcium carbonate 1,250 mg (500 mg elemental) tablet Take 1 tablet (1,250 mg total) by mouth 2 (two) times a day For: low amount of calcium in the blood Commonly known as: OS-KRISTY ergocalciferol 50,000 unit capsule Take 1 capsule (50,000 Units total) by mouth 2 (two) times a week for 15 doses Commonly known as: VITAMIN D Start taking on: March 26, 2023 fluconazole 200 mg tablet Take 4 tablets (800 mg total) by mouth daily for 3 days For: Skin/Soft Tissue Infection Commonly known as: DIFLUCAN glucose blood strip Use as directed up to four times a day. Generic drug: blood glucose diagnostic insulin lispro 100 unit/mL pen for injection Inject 10 Units under the skin 3 (three) times a day with meals For: type 1 diabetes mellitus Commonly known as: ADMELOG lancets misc Use as directed up to 4 times a day. LANTUS 100 unit/mL (3 mL) pen for injection Inject 20 Units under the skin nightly Generic drug: insulin glargine losartan 25 mg tablet Take 1 tablet (25 mg total) by mouth daily Commonly known as: COZAAR Start taking on: March 26, 2023 metFORMIN 1,000 mg tablet Take 0.5 tablets (500 mg total) by mouth 2 (two) times a day with meals Commonly known as: GLUCOPHAGE pantoprazole DR 40 mg EC tablet Take 1 tablet (40 mg total) by mouth daily For: Stress Ulcer Prophylaxis Commonly known as: PROTONIX Start taking on: March 26, 2023 * pen needle, diabetic 32 gauge x 5/32 needle Use as directed once a day. Commonly known as: Pen Needle * pen needle, diabetic 32 gauge x 5/32 needle Use as directed 3 times a day. Trulicity 0.75 mg/0.5 mL pen injector Inject 0.5 mL (0.75 mg total) under the skin once a week Generic drug: dulaglutide * This list has 2 medication(s) that are the same as other medications prescribed for you. Read the directions carefully, and ask your doctor or other care provider to review them with you. Outpatient Follow-Up: Contact Information for Follow-ups Dr. Herb Burden [facility] [address] [place] [address] Next Steps: Go on 04/01/2023 Instructions: Your appointment is at 10:40 AM. Please arrive 15 minutes early. Bring a photo ID, insurance card and a list of any current medications with you to the appointment. [facility] Home Care Services Specialty: Home Health and Hospice [address] [id number] Next Steps: Follow up Questions: Service Line: Home Health Primary disciplines requested: Senior Living Home Health Services: Disease and Medication Management Wound/Ostomy Care Does the patient have a wound vac?: No Wound Information: scrotal wound and left foot wound Requested Start of Care Date: 24-48 hours Physician to follow patient's care (the person listed here will be responsible for signing ongoing orders): PCP I attest that I or another qualified licensed provider saw the patient 90 days prior to or 30 days post admission and this face to face encounter meets the necessary Home Health requirements. The face to face encounter occurred on (date): 03/24/2023 The encounter with the patient was in whole, or in part, for the following medical condition, whichis the primary reason for home health care. (List medical condition): right scrotal abscess, debility I certify that, based on my findings, the following services are medically necessary skilled home health services: Wound/Ostomy Care Clinical findings that support the need for home care: Medical condition requiring skilled assessment/education I certify that my clinical findings support patient's homebound status. Homebound criteria met because: Requires assistance of another to leave home safely Abnormal gait/unsteady balance resulting in fall risk Referral Status: Some Visits Scheduled [facility] (All Locations) Next Steps: Follow up Questions: Please select the performing region: [facility] (All Locations) # of visits: 1 Referral Status: Pending Authorization Cosigned by Lamonte Guzmán MD at 03/25/2023 9:55 PM CDT documented in this encounter Discharge Instructions * Discharge Instr - Diet* Kim Byrne RD - 03/09/2023 9:37 AM CDT Consistent Carbohydrate Diet: Recommended to continue to follow a consistent carbohydrate diet upondischarge. Nutrition Tips for Blood Glucose Management: Consume balanced meals and snacks including a variety of fruits, vegetables, whole grains, low-fat dairy products, beans, lean meats, and fish. Eat 3 meals per day and try to eat at consistent times. A carbohydrate choice = 15 grams of carbohydrates. Make sure to check nutritional labels for carbohydrate content. Eat 45-60 g or 3-4 carbohydrate choices at each meal. It is not recommended to go longer than 5 hours without having a meal or snack during the day. Consume foods high in fiber such as popcorn, oatmeal, beans, and legumes. Limit intake of concentrated sweets such as cookies, cake, candy, and ice cream. Limit sugar-sweetened beverages such as lemonade, sweet tea, regular soda, juice, and Gatorade. Suggestions for sugar free beverages include: G2 gatorade, SF powerade, and SF Liquid IV. Recommend to follow up with your Primary Care Doctor to ask about seeing a Registered Dietitian. Additional resources available from the [place] [employer] can be found at www.diabetes.org/nutrition * Appointments* Graham Salmeron, RN - 03/11/2023 11:56 AM CDT * Discharge Instr - Other Orders* Graham Salmeron, RN - 03/24/2023 11:41 AM CDT Home Health agency: [facility] Home [facility] (P: [phone]) You should be contacted by the home health care agency within 1-2 days regarding scheduling a visit. If you don't hear from them, please call the number listed above to follow-up. Thank you documented in this encounter Medications at Time [...] 03/02/2023 4 documented as of this encounter Ordered Prescriptions Prescription Sig Dispense Quantity Refills Last Filled Start Date End Date alcohol swabs (Alcohol Wipes) pads, medicated Use as directed. 100 each 03/25/2023 glucagon (Baqsimi) 3 mg/actuation spray,non-aerosol One spray into one nostril once as directed by provider for low blood sugar. 1 each 03/25/[address] (PROTONIX) 40 mg EC tabletIndications: Stress Ulcer Prophylaxis Take 1 tablet (40 mg total) by mouth daily 30 tablet 1 03/26/2023 lancets misc Use as directed up to 4 times a day. 100 each 1 03/11/2023 blood glucose diagnostic (glucose blood) strip Use as directed up to four times a day. 100 each 1 03/11/2023 blood-glucose meter kit Use as directed. 1 kit 03/11/2023 fluconazole (DIFLUCAN) 200 mg tabletIndications: Skin/Soft Tissue Infection Take 4 tablets (800 mg total) by mouth daily for 3 days 12 tablet 03/25/2023 3 amoxicillin-clavul anate (AUGMENTIN) 875-125 mg per tabletIndications: Skin/Soft Tissue Infection Take 1 tablet by mouth 2 (two) times a day for 3 days 6 tablet 03/25/2023 3 dulaglutide (Trulicity) 0.75 mg/0.5 mL pen injector Inject 0.5 mL (0.75 mg total) under the skin once a week 2 mL 03/25/2023 4 metFORMIN (GLUCOPHAGE) 1,000 mg tablet Take 0.5 tablets (500 mg total) by mouth 2 (two) times a day with meals 60 tablet 03/25/2023 4 pen needle, diabetic 32 gauge x 5/32 needle Use as directed 3 times a day. 100 each 03/25/2023 4 insulin lispro (ADMELOG) 100 unit/mL pen for injectionIndicatio ns:type 1 diabetes mellitus Inject 10 Units under the skin 3 (three) times a day with meals 18 mL 03/25/2023 4 pen needle, diabetic (Pen Needle) 32 gauge x 5/32 needle Use as directed once a day. 100 each 03/25/2023 4 insulin glargine (LANTUS) 100 unit/mL (3 mL) pen for injection Inject 20 Units under the skin nightly 12 mL 03/25/2023 4 losartan (COZAAR) 25 mg tablet Take 1 tablet (25 mg total) by mouth daily 30 tablet 1 03/26/2023 4 ergocalciferol (VITAMIN D) 50,000 unit capsule Take 1 capsule (50,000 Units total) by mouth 2 (two) times a week for 15 doses 8 capsule 1 03/26/2023 4 calcium carbonate (OS-KRISTY) 1,250 mg (500 mg elemental) tabletIndications: hypocalcemia Take 1 tablet (1,250 mg total) by mouth 2 (two) times a day 60 tablet 1 03/25/2023 4 atorvastatin (LIPITOR) 20 mg tablet Take 1 tablet (20 mg total) by mouth nightly 30 tablet 1 03/25/2023 4 documented in this encounter Discharge Disposition Disposition Code Departure Means Destination Comment s Discharge to home, home heal th skilled care [facility] documented in this encounter Progress Notes * Graham Salmeron, RN - 03/25/2023 3:17 PM CDT DISCHARGE PLAN Per medical team, patient is medically stable for discharge at this time. Plan for patient to discharge to home with support of family members. Home Health or DME has been arranged per below if indicated. Follow up appointment has been scheduled per AVS. Mode of transport has been discussed with the patient/family, MD, nursing staff. All are agreeable to plan and understand their responsibilities to ensure the safe transfer. Transportation will be provided by EMS. Patient and/or family are agreeablewith the plan. If any further discharge needs arise, please contact the covering Note Teller. 03/09/23 5511 Discharge Summary Discharge Disposition Private residence Equipment/Provider Needs No Home Needs Identified;Home Provider Services Needs Identified Home Care Agency Information Home Care Agency Type #1: Senior Living Home Care Agency Name [facility] Home Health Home Care Agency Phone Number [phone] Home Care Agency Contact Spoken to [facility] Order Faxed to [facility] Second Home Care Agency Used? Not Needed Discharge Additional Assistance Financial assistance Discharge medication assistance needed Does the patient need discharge transport arranged? Yes Has discharge transport been arranged? Yes Details of Transportation [facility] to patient's home Trip #[id number] D/C Transport Anticipated Date 03/25/23 D/C Transport Anticipated Time 1130 Discharge Transportation Communication Mode of transport has been discussed with the patient/family. All are agreeable to the plan and understand their responsibilities to ensure the safe transfer. No further CM/SW intervention is anticipated at this time. Post Discharge Care Provider Post Discharge Care Plan DC Summary has been faxed to next level of care provider (see Follow Up Providers) Patient's Identified Problem/Goal Problem: Ensure acute medical needs are met and that patient has a safe discharge plan. Goal: Secure a discharge plan that patient/family are agreeable with and ensure patient has continuum of care. Patient and/or family are agreeable with plan. * Ira Starks NP - 03/25/2023 3:03 PM CDT Daily Progress Note Division of Hospital Medicine Name: Rene Hyatt : 1980 Today's Date: March 25, 2023 Age: 42 y.o. male Admission: 03/06/2023 Bed: [id number] LOS: 19 days Subjective Chief complaint: Scrotal abscess Interval History NAEON. No complaints at this time. Imaging of scrotal post surgical incision wound uploaded to media. Urology reviewed and okay with appearance, recommending daily cleansing with mild soap or wound cleanser, keep dry and do not submerge until fully healed. Medically stable for discharge. Discharge home with home health. Discharge Planning I have spent 45 minutes on discharge planning activities. Time spent was on Coordination of care, Follow up , Counselling with patient/family, discharge exam, parent/patient education, and PCP communication. Objective Scheduled Meds PRN Meds Infusions acetaminophen, 1,000 mg, oral, Q6H ASTON ampicillin-sulbactam, 3 g, intravenous, Q6H ASTON atorvastatin, 20 mg, oral, Nightly calcium carbonate, 500 mg of elemental calcium, oral, BID enoxaparin, 40 mg, subcutaneous, Q12H ASTON ergocalciferol, 50,000 Units, oral, Once per day on Mon Inna insulin glargine, 20 Units, subcutaneous, Nightly insulin lispro, 0-10 Units, subcutaneous, TID with meals insulin lispro, 0-5 Units, subcutaneous, Nightly insulin lispro, 12 Units, subcutaneous, TID with meals losartan, 25 mg, oral, Daily micafungin, 100 mg, intravenous, Q24H ASTON pantoprazole DR, 40 mg, oral, Daily dextrose, 15 g, oral, Q15 Min PRN OR dextrose, 250 mL, intravenous, Q15 Min PRN glucagon, 1 mg, intramuscular, Q30 Min PRN ondansetron, 4 mg, intravenous, Q4H PRN oxyCODONE, 5 mg, oral, Q4H PRN prochlorperazine, 5 mg, intravenous, Q6H PRN ramelteon, 8 mg, oral, Nightly PRN simethicone, 80 mg, oral, BID PRN white petrolatum-mineral oiL, , topical, BID PRN Vitals Most Recent Vitals: T 36.9 ??C (98.5 ??F), HR 82, BP 138/72, RR 16, SpO2 97 %. 24hr Min/Max: Temp Min: 36.6 ??C (97.8 ??F) Max: 36.9 ??C (98.5 ??F) Pulse Min: 82 Max: 88 BP Min: 113/73 Max: 148/72 Resp Min: 16 Max: 18 SpO2 Min: 95 % Max: 97 % Intake/Output Summary (Last 24 hours) at 03/25/2023 1516 Last data filed at 03/25/2023 0930 Gross per 24 hour Intake 590 ml Output -- Net 590 ml Physical Exam Vitals reviewed. Constitutional: General: He is not in acute distress. Appearance: Normal appearance. He is obese. HENT: Head: Normocephalic and atraumatic. Mouth/Throat: Mouth: Mucous membranes are moist. Eyes: General: No scleral icterus. Extraocular Movements: Extraocular movements intact. Conjunctiva/sclera: Conjunctivae normal. Cardiovascular: Rate and Rhythm: Normal rate and regular rhythm. Pulses: Normal pulses. Heart sounds: No murmur heard. Pulmonary: Effort: Pulmonary effort is normal. Breath sounds: Normal breath sounds. No wheezing, rhonchi or rales. Abdominal: General: Bowel sounds are normal. Palpations: Abdomen is soft. Tenderness: There is no abdominal tenderness. Musculoskeletal: General: Normal range of motion. Right lower leg: No edema. Left lower leg: No edema. Skin: General: Skin is warm and dry. Comments: Scrotal drain removed. Left foot wound, dressing CDI. Left plantar great toe wound, dry necrotic. Posterior scrotal wound, incision closed with sutures, minimal slough noted in incision line. Evaluated by Urology. Neurological: General: No focal deficit present. Mental Status: He is alert and oriented to person, place, and time. Mental status is at baseline. Psychiatric: Mood and Affect: Mood normal. Behavior: Behavior normal. Lines, Drains, Airways Peripheral IV 03/21/23 22 G Posterior;Right Hand (Active) Labs/Diagnostic Review Na - Cl - BUN - K - CO2 - Cr - Mg -, G AST - ALT - Alk Phos - Ca - TP - Alb - Total Bili: - Direct Bili: - \ Hgb - / WBC - -------- Plt - / MCV - \ INR - (Labs above are the most recent result obtained in the last 24 hours. For additional labs/trends, see Epic.) I have reviewed the laboratory results. Imaging Review No results found. 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 PT denies SIRS. With neutrophilic leukocytosis and elevated inflammatory markers. CTAP w contrast w/ scrotal soft tissue thickening and subQ fluid / air suggesting abscess. S/p OR 03/06 with urology and ACCS for I&D of abscess and debridement. No tracking to rectum. S/p wound vac placement with urology. 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 Op cultures 03/06 growing strep anginosus [...] Op culture 03/10 growing mixed organisms and destiny glabrata susceptibility to fluconazole - continue Unasyn (03/09-), Micafungin 100 mg IV (03/15-) > Plan for 14d (End date 03/28) > Maytransition to Augmentin 875/125 BID and Fluconazole 800mg every day at discharge. - Urology removed drain T1DM (type 1 diabetes mellitus) (HCC) Assessment & Plan Newly diagnosed this admission. Endocrinology following and [...] + Trulicity 0.75 mg SC q weekly Hypertension Assessment & Plan Blood pressure modestly elevated. - elect DEBBI/ARB in DM (ACR 44) > start losartan 25 03/17 Diabetic foot ulcer (CMS/HCC) ([facility]) Assessment & Plan Wound to planter 1st metatarsal head. S/p debridement with podiatry 03/07, significant depth but negative probe to bone. L foot XR with no OM - continue daily dressing changes - Wound RN consult for final recommendations for HHRN. - WBAT in heel strike shoe per PT - follow up in wound center at discharge - diabetic shoes with custom offloading inserts for basketballs and footballs reverser sheogear - Heel strike shoe is causing the patient difficulty walking, collaborating with PT, nursing, DM re: solutions - collab w/ PT, ordered shoe for right foot to assist with balance / walking > mobility improved Class 3 obesity (HCC) Assessment & Plan Complicates all aspects of care. - Perform STOP BANG > At least intermediate risk > Amb ref pulm vs sleep - Eval for bariatric surgery, GLP-RA would be appropriate Anemia Assessment & Plan BL 10-. No signs of bleeding -CTM Hgb Vitamin D deficiency Assessment & Plan Undetectable Vit D Level - continue vit d 50k international units twice weekly x 2 months and calcium supplementation for [id number]. 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 Reviewed records from the following unique sources (external institutions or providers from different services): Endocrine . Discussed management of DM with Endocrine . Ira Starks NP Cosigned by Lamonte Guzmán MD at 03/25/2023 9:56 PM CDT Associated attestation - Lamonte Guzmán MD - 03/25/2023 9:56 PM CDT Patient was seen and examined with the SOFTWARE TECHNICIAN on 03/25/2023. Agree with the assessment and plan as outlined above. * Cristela Rios, OT - 03/25/2023 8:20 AM CDT Occupational Therapy 03/25/23 0820 General Session Type Treatment OT Received On 03/25/23 Safe Environment Arm band checked;Patient found in supine;Gait belt not utilized, see comment (level of independence) Subjective Agreeable to Therapy Family/Caregiver Present No Precautions Precautions Fall risk;WEST Weight Bearing Restrictions Yes LLE Weight Bearing WBAT (with heel strike shoe) Braces/Orthoses Heel strike shoe (heel strike shoe LLE, post-op shoe RLE for balance) Precaution Handout Issued No Precaution Comments verbally reviewed precautions and WB restricitions prior to all mobility, pt verbalized and demonstrated understanding Pain Assessment Pain Assessment No/denies pain Balance Balance Yes Static Sitting Balance Static Sitting-Balance Support No upper extremity supported Static Sitting-Sitting Surface Bed Static Sitting-Level of Assistance Independent Dynamic Sitting Balance Dynamic Sitting-Balance Support No upper extremity supported Dynamic Sitting-Balance Lateral lean;Forward lean;Reaching for objects Dynamic Sitting-Sitting Surface Bed Dynamic Sitting-Level of Assistance Independent Static Standing Balance Static Standing-Balance Support No upper extremity supported Static Standing-Standing Surface Floor Static Standing-Level of Assistance Close supervision Static Standing-Comment/# of Minutes safety Dynamic Standing Balance Dynamic Standing-Balance Support No upper extremity supported Dynamic Standing-Balance Lateral lean;Forward lean;Reaching for objects Dynamic Standing-Standing Surface Floor Dynamic Standing-Level of Assistance Close supervision Dynamic Standing-Comments safety while reaching to floor ADL ADLS (WDL) X Grooming Grooming: Where assessed Standing at sink Grooming: Level of assistance Standby Assist Grooming: Assistance with Safety (balance) LE Dressing LE Dressing: Where assessed Standing;Sitting LE Dressing: Level of assistance Standby Assist LE Dressing: Assistance with Safety (balance) Toileting Toileting: Where assessed Toilet Toileting: Level of assistance Standby Assist Toileting: Assistance with Safety (balance) Room Mobility Room Mobility: Where assessed in room and hallway Room Mobility: Level of Assistance Standby Assist Room Mobility comment safety, balance Bed Mobility Bed Mobility Yes Bed Mobility 1 Bed Mobility From 1 Supine Bed Mobility Type 1 To and from Bed Mobility to 1 Edge of bed Level of Assistance 1 Modified Independent Bed Mobility Comments 1 HOB elevated, increased time needed Transfers Transfer Yes Transfer 1 Transfer From 1 Sit Transfer Type 1 To and from Transfer to 1 Stand Technique 1 Sit to stand;Stand to sit Transfer Device 1 No device Transfer Level of Assistance 1 Standby Assist Trials/Comments 1 safety, balance Toilet Transfers Toilet Transfer From Bed Toilet Transfer Type To and from Toilet Transfer to Standard toilet Toilet Transfer Technique Ambulating Toilet Transfer: Equipment Wheeled walker Toilet Transfers Supervision Toilet Transfers Comments safety, balance RUE Assessment RUE Assessment WFL LUE Assessment LUE Assessment WFL Cognition Arousal/Alertness Alert;Appropriate responses to stimuli Attention Span Appears intact Current communication Appears Intact Orientation Oriented X4 (person, place, time, situation) Following Commands Follows all commands and directions without difficulty Safety Judgment Good awareness of safety precautions Awareness of Errors Assistance required to identify errors made;Assistance required to correct errors made Insight Fully aware of deficits Problem Solving Assistance required to identify errors made;Assistance required to generate solutions Compliance/Behavior Easy to engage Perseveration Not present Other Comments Comments Pt participated in higher level balance challenges reaching to floor for item retrieval. Pt completed 10 reps reaching to both R and L. Pt with one slight LOB and able to self correct. 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 Daily Activity - 6 Clicks Putting on and taking off regular lower body clothing 3 Bathing 3 Toileting 3 Putting on and taking off upper body clothing 3 Personal Grooming 3 Eating Meals 4 Total Score (range 6-24) 19 Score Interpretation 40.22 Safe Environment End of Therapy Session Safe Environment End of Therapy Session Patient left supine in bed;Call light within reach;Overbed table within reach;RN notified Assessment Problem List Decreased endurance;Decreased balance;Decreased functional mobility;Decreased ADL independence;Decreased IADL independence Barriers to Discharge Current Mobility Status Plan Plan Alter current plan;If this is the last note, consider this the discharge summary Plan Comments update d/c rec per pt progress Recommendation/Plan OT Recommendation Senior Living Facility Patient at high risk for Falls;Readmission;Injury due to decreased ability to care for self;Injury due to reduced functional status;Injury due to balance deficits;Injury at home as patient has not returned to prior level of function Recommend SNF due to Risk of injury at home;Unable to safely care for self in the home;Skilled therapy needed to address care for self in the home;Skilled therapy needed to address functional deficits;Skilled therapy needed for patient to return to prior level of independence OT Frequency during current admission 3-5x/wk Treatment/Interventions during current admission ADL/IADL retraining;Balance Training;Endurance training;Functional activity;Functional mobility training;Functional transfer training;Strengthening;Therapeutic activity;Therapeutic exercise;Transfer training Progress during current admission Progressing toward goals OT - Next Appointment 03/27/23 OT - OK to Discharge No Occupational Therapy Progress Note NOTE: This is a summary note of the elizabeth components of the treatment session. For full details, review chart for all flowsheets documented on by this occupational therapy clinician on this date. Vitalsigns documented in vital signs flowsheet. Care plan progress documented in Care Plan Activity. For questions, please review the treatment team and contact the occupational therapist currently assigned to this patient. If an occupational therapist is not assigned to this patient, please call [phone]. Multi-Disciplinary Problems (from Occupational Therapy) Active Problems Problem: Dressings Lower Extremities Start Date: 03/14/23 Goal Start Date Expected End Date End Date STG - Patient to complete lower body dressing 03/14/23 04/06/23 -- Goal Details: Mod I Problem: Grooming Start Date: 03/14/23 Goal Start Date Expected End Date End Date STG - Patient will complete grooming 03/14/23 04/06/23 -- Goal Details: Mod I Problem: Transfers Start Date: 03/14/23 Goal Start Date Expected End Date End Date STG - Patient will perform toilet transfer 03/14/23 04/06/23 -- Goal Details: Mod I * Ira Starks SOFTWARE TECHNICIAN - 03/24/2023 5:18 PM CDT Daily Progress Note Division of Hospital Medicine Name: Rene Hyatt : 1980 Today's Date: March 24, 2023 Age: 42 y.o. male Admission: 03/06/2023 Bed: [place] [id number] LOS: 18 days Subjective Chief complaint: Scrotal abscess Interval History NAEON. Patient now eager to get back home to care for his mother. No complaints at this time. Wound Rn consulted for left foot and scrotal wound post drain removal. Wound RN noted slough posterior to surgical incision. Recommending surgical consult. Will consult general surgery tomorrow afterformal assessment of wound. Urology notified. Recommend betadine solution and APPARATUS ENGINEERING TECHNOLOGIST. Scrotal drain removed today. CM following for assistance with HHRN. Objective Scheduled Meds PRN Meds Infusions acetaminophen, 1,000 mg, oral, Q6H ASTON ampicillin-sulbactam, 3 g, intravenous, Q6H ASTON atorvastatin, 20 mg, oral, Nightly calcium carbonate, 500 mg of elemental calcium, oral, BID enoxaparin, 40 mg, subcutaneous, Q12H ASTON ergocalciferol, 50,000 Units, oral, Once per day on Mon Inna insulin glargine, 20 Units, subcutaneous, Nightly insulin lispro, 0-10 Units, subcutaneous, TID with meals insulin lispro, 0-5 Units, subcutaneous, Nightly insulin lispro, 12 Units, subcutaneous, TID with meals losartan, 25 mg, oral, Daily micafungin, 100 mg, intravenous, Q24H ASTON pantoprazole DR, 40 mg, oral, Daily dextrose, 15 g, oral, Q15 Min PRN OR dextrose, 250 mL, intravenous, Q15 Min PRN glucagon, 1 mg, intramuscular, Q30 Min PRN ondansetron, 4 mg, intravenous, Q4H PRN oxyCODONE, 5 mg, oral, Q4H PRN prochlorperazine, 5 mg, intravenous, Q6H PRN ramelteon, 8 mg, oral, Nightly PRN simethicone, 80 mg, oral, BID PRN white petrolatum-mineral oiL, , topical, BID PRN Vitals Most Recent Vitals: T 36.9 ??C (98.5 ??F), HR 88, BP 113/73, RR 18, SpO2 96 %. 24hr Min/Max: Temp Min: 36.2 ??C (97.2 ??F) Max: 36.9 ??C (98.5 ??F) Pulse Min: 84 Max: 88 BP Min: 113/73 Max: 143/73 Resp Min: 16 Max: 18 SpO2 Min: 95 % Max: 98 % Intake/Output Summary (Last 24 hours) at 03/24/2023 1735 Last data filed at 03/24/2023 1445 Gross per 24 hour Intake 1000 ml Output 30 ml Net 970 ml Physical Exam Vitals reviewed. Constitutional: General: He is not in acute distress. Appearance: Normal appearance. He is obese. HENT: Head: Normocephalic and atraumatic. Mouth/Throat: Mouth: Mucous membranes are moist. Eyes: General: No scleral icterus. Extraocular Movements: Extraocular movements intact. Conjunctiva/sclera: Conjunctivae normal. Cardiovascular: Rate and Rhythm: Normal rate and regular rhythm. Pulses: Normal pulses. Heart sounds: No murmur heard. Pulmonary: Effort: Pulmonary effort is normal. Breath sounds: Normal breath sounds. No wheezing, rhonchi or rales. Abdominal: General: Bowel sounds are normal. Palpations: Abdomen is soft. Tenderness: There is no abdominal tenderness. Musculoskeletal: General: Normal range of motion. Right lower leg: No edema. Left lower leg: No edema. Skin: General: Skin is warm and dry. Comments: Scrotal drain in place. Left foot wound, dressing CDI. Left plantar great toe wound, dry necrotic. Neurological: General: No focal deficit present. Mental Status: He is alert and oriented to person, place, and time. Mental status is at baseline. Psychiatric: Mood and Affect: Mood normal. Behavior: Behavior normal. Lines, Drains, Airways Peripheral IV 03/21/23 22 G Posterior;Right Hand (Active) Labs/Diagnostic Review Na 140 Cl 104 BUN 17 K 4.0 CO2 28 Cr 0.83 Mg -, G AST - ALT - Alk Phos - Ca 8.5 TP - Alb - Total Bili: - Direct Bili: - \ Hgb 9.6 / WBC 7.9 -------- Plt 226 / MCV 85.0 \ INR - (Labs above are the most recent result obtained in the last 24 hours. For additional labs/trends, see Epic.) I have reviewed the laboratory results. Imaging Review No results found. 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 PT denies SIRS. With neutrophilic leukocytosis and elevated inflammatory markers. CTAP w contrast w/ scrotal soft tissue thickening and subQ fluid / air suggesting abscess. S/p OR 03/06 with urology and ACCS for I&D of abscess and debridement. No tracking to rectum. S/p wound vac placement with urology. 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 Op cultures 03/06 growing strep anginosus [...] Op culture 03/10 growing mixed organisms and destiny glabrata susceptibility to fluconazole - continue Unasyn (03/09-), Micafungin 100 mg IV (03/15-) > Plan for 14d (End date 03/28) > Maytransition to Augmentin 875/125 BID and Fluconazole 800mg every day at discharge. - Urology will remove drain when patient is ready for discharge however he may be here longer than they anticipate - OOBTC daily, chair ordered - ambulatory, remove min - leukocytosis resolved 10 AM T1DM (type 1 diabetes mellitus) ([facility]) Assessment & Plan Newly diagnosed this admission. Endocrinology following and currently on basal bolus regimen. Insulin Ab, IA-2 Ab, ZNT8 Ab neg, GAD65 0.31 (<0.02) - cont lantus, lispro per endocrinology recs - continue atorvastatin 20 mg daily - patient seen by DM educator - If HTN, elect DEBBI/ARB (ACR 44) > see HTN. Hypertension Assessment & Plan Blood pressure modestly elevated. - elect DEBBI/ARB in DM (ACR 44) > start losartan 25 03/17 Diabetic foot ulcer (CMS/HCC) ([facility]) Assessment & Plan Wound to planter 1st metatarsal head. S/p debridement with podiatry 03/07, significant depth but negative probe to bone. L foot XR with no OM - continue daily dressing changes - Wound RN consult for final recommendations for HHRN. - WBAT in heel strike shoe per PT - follow up in wound center at discharge - diabetic shoes with custom offloading inserts for alf sheogear - Heel strike shoe is causing the patient difficulty walking, collaborating with PT, nursing, DM re: solutions - collab w/ PT, ordered shoe for right foot to assist with balance / walking > mobility improved Adjustment disorder Assessment & Plan PHQ-4 with likely depression, symptoms are new [...] mother is a major motivator for patient Class 3 obesity (HCC) Assessment & Plan Complicates all aspects of care. - Perform STOP BANG > At least intermediate risk > Amb ref pulm vs sleep - Eval for bariatric surgery, GLP-RA would be appropriate Anemia Assessment & Plan BL 10-11. No signs of bleeding -CTM Hgb Vitamin D deficiency Assessment & Plan Undetectable Vit D Level - continue vit d 50k international units twice weekly x 2 months and calcium supplementation for [id number]. - plan for vit d 2k daily after 50k loading phase - f/u with PCP Code status : Full Code Diet : Adult Diet Restricted; Consistent Carbohydrate PT/OT Dispo Rec : PT Recommendation/Plan: Inpatient Rehab Facility / OT Recommendation: Inpatient Rehab Facility Supplementary Attestation The total encounter time on this service date was 50 minutes which was spent performing a [id number] encounter and personally completing the provider-level activities documented in the note. This includes time spent prior to the visit and after the visit in direct care of the patient. This time does not include time spent in any separately reportable services. Ira Starks NP Cosigned by Lamonte Guzmán MD at 03/24/2023 11:04 PM CDT Associated attestation - Lamonte Guzmán MD - 03/24/2023 11:04 PM CDT Patient was seen and examined with the SOFTWARE TECHNICIAN on 03/24/2023. Agree with the assessment and plan as outlined above. 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 He was taken to OR on 03/06, 03/07, 03/10 for debridement and closed on 03/12. Interval History: Patient without complaints currently. Incision on scrotum well approximated and without redness, drainage though indurated. CHELITA drain with minimal output, drain removed at bedside. Afebrile, voiding without difficulty. Patient likely discharging home tomorrow. Objective Lab Results Component Value Date CREATININE 0.83 03/22/2023 CREATININE 0.81 03/21/2023 CREATININE 0.77 (L) 03/20/2023 WBC 7.9 03/22/2023 WBC 9.0 03/21/2023 WBC 9.6 03/20/2023 HGB 9.6 (L) 03/22/2023 HGB 10.4 (L) 03/21/2023 HGB 11.1 (L) 03/20/2023 RBCU 6-10 (A) 03/06/2023 WBCU 0-5 03/06/2023 NITRITEU Negative 03/06/2023 Recent Vitals(24hr Range): Vitals: 03/23/23 1640 03/23/23 2000 03/24/23 0555 03/24/23 0840 BP: 126/73 125/76 132/80 125/72 BP Location: Right arm Right arm Right arm Right arm Patient Position: HOB 30 degrees HOB 30 degrees HOB 30 degrees HOB 30 degrees Pulse: 83 84 88 88 Resp: 18 18 18 16 Temp: 36.9 ??C (98.5 ??F) 36.2 ??C (97.2 ??F) 36.5 ??C (97.7 ??F) 36.9 ??C (98.5 ??F) TempSrc: Oral Oral Oral Oral SpO2: 96% 96% 97% 95% Weight: Height: I and Os: I/O last 3 completed shifts: In: 940 [P.O.:940] Out: 40 [Drains:40] I/O this shift: In: - Out: 30 [Drains:30] Physical Exam: Constitutional: No distress Resp: Non labored CVS: Warm, well perfused Abdomen: Soft, non distended Genitourinary: incision well approximated, no surrounding redness, scrotum indurated Neuro: Alert and oriented Assessment Rene Hyatt is a 42 y.o. male s/p Procedure(s): DEBRIDEMENT PERINEAL WOUND COMPLEX WOUND CLOSURE Plan -Incision healing well, continue to monitor. CHELITA drain removed. -Urology will set up follow up appointment with Dr Negron and will call him with appointment information. -Urology to sign off, call with questions Please do not hesitate to contact the urology team with any questions or concerns. TACOS Miller- Urology Consults * Ira Starks NP - 03/23/2023 6:23 PM CDT Daily Progress Note Division of Hospital Medicine Name: Rene Hyatt : 1980 Today's Date: March 23, 2023 Age: 42 y.o. male Admission: 03/06/2023 Bed: [id number] LOS: 17 days Subjective Chief complaint: Scrotal abscess Interval History NAEON. Patient upset regarding inability to go to [facility]. following for assistance, patient would prefer to discharge home with HHRN. Urology notified of upcoming discharge to remove scrotal drain and have wound RN evaluate and give recommendation regarding management of wound care at home. Objective Scheduled Meds PRN Meds Infusions acetaminophen, 1,000 mg, oral, Q6H ASTON ampicillin-sulbactam, 3 g, intravenous, Q6H ASTON atorvastatin, 20 mg, oral, Nightly calcium carbonate, 500 mg of elemental calcium, oral, BID enoxaparin, 40 mg, subcutaneous, Q12H ASTON ergocalciferol, 50,000 Units, oral, Once per day on Mon Inna insulin glargine, 20 Units, subcutaneous, Nightly insulin lispro, 0-10 Units, subcutaneous, TID with meals insulin lispro, 0-5 Units, subcutaneous, Nightly insulin lispro, 12 Units, subcutaneous, TID with meals losartan, 25 mg, oral, Daily micafungin, 100 mg, intravenous, Q24H ASTON pantoprazole DR, 40 mg, oral, Daily dextrose, 15 g, oral, Q15 Min PRN OR dextrose, 250 mL, intravenous, Q15 Min PRN glucagon, 1 mg, intramuscular, Q30 Min PRN ondansetron, 4 mg, intravenous, Q4H PRN oxyCODONE, 5 mg, oral, Q4H PRN prochlorperazine, 5 mg, intravenous, Q6H PRN ramelteon, 8 mg, oral, Nightly PRN simethicone, 80 mg, oral, BID PRN white petrolatum-mineral oiL, , topical, BID PRN Vitals Most Recent Vitals: T 36.9 ??C (98.5 ??F), HR 83, BP 126/73, RR 18, SpO2 96 %. 24hr Min/Max: Temp Min: 36.6 ??C (97.9 ??F) Max: 37.1 ??C (98.7 ??F) Pulse Min: 83 Max: 92 BP Min: 124/78 Max: 138/76 Resp Min: 18 Max: 18 SpO2 Min: 95 % Max: 97 % Intake/Output Summary (Last 24 hours) at 03/23/2023 1838 Last data filed at 03/23/2023 1810 Gross per 24 hour Intake 940 ml Output 40 ml Net 900 ml Physical Exam Vitals reviewed. Constitutional: General: He is not in acute distress. Appearance: Normal appearance. He is obese. HENT: Head: Normocephalic and atraumatic. Mouth/Throat: Mouth: Mucous membranes are moist. Eyes: General: No scleral icterus. Extraocular Movements: Extraocular movements intact. Conjunctiva/sclera: Conjunctivae normal. Cardiovascular: Rate and Rhythm: Normal rate and regular rhythm. Pulses: Normal pulses. Heart sounds: No murmur heard. Pulmonary: Effort: Pulmonary effort is normal. Breath sounds: Normal breath sounds. No wheezing, rhonchi or rales. Abdominal: General: Bowel sounds are normal. Palpations: Abdomen is soft. Tenderness: There is no abdominal tenderness. Musculoskeletal: General: Normal range of motion. Right lower leg: No edema. Left lower leg: No edema. Skin: General: Skin is warm and dry. Comments: Scrotal drain in place. Left foot wound, dressing CDI. Left plantar great toe wound, dry necrotic. Neurological: General: No focal deficit present. Mental Status: He is alert and oriented to person, place, and time. Mental status is at baseline. Psychiatric: Mood and Affect: Mood normal. Behavior: Behavior normal. Lines, Drains, Airways Peripheral IV 03/21/23 22 G Posterior;Right Hand (Active) Closed/Suction/Open Drain 1 Perineal Bulb 19 Fr. (Active) Labs/Diagnostic Review Na 140 Cl 104 BUN 17 K 4.0 CO2 28 Cr 0.83 Mg -, G AST - ALT - Alk Phos - Ca 8.5 TP - Alb - Total Bili: - Direct Bili: - \ Hgb 9.6 / WBC 7.9 -------- Plt 226 / MCV 85.0 \ INR - (Labs above are the most recent result obtained in the last 24 hours. For additional labs/trends, see Epic.) I have reviewed the laboratory results. Imaging Review No results found. 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 PT denies SIRS. With neutrophilic leukocytosis and elevated inflammatory markers. CTAP w contrast w/ scrotal soft tissue thickening and subQ fluid / air suggesting abscess. S/p OR 03/06 with urology and ACCS for I&D of abscess and debridement. No tracking to rectum. S/p wound vac placement with urology. 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 Op cultures 03/06 growing strep anginosus [...] Op culture 03/10 growing mixed organisms and destiny glabrata susceptibility to fluconazole - continue Unasyn (03/09-), Micafungin 100 mg IV (03/15-) > Plan for 14d (End date 03/28) > Maytransition to Augmentin 875/125 BID and Fluconazole 800mg every day at discharge. - Urology will remove drain when patient is ready for discharge however he may be here longer than they anticipate - OOBTC daily, chair ordered - ambulatory, remove min - leukocytosis resolved 03/21 AM T1DM (type 1 diabetes mellitus) ([facility]) Assessment & Plan Newly diagnosed this admission. Endocrinology following and currently on basal bolus regimen. Insulin Ab, IA-2 Ab, ZNT8 Ab neg, GAD65 0.31 (<0.02) - cont lantus, lispro per endocrinology recs - continue atorvastatin 20 mg daily - patient seen by DM educator - If HTN, elect DEBBI/ARB (ACR 44) > see HTN. Hypertension Assessment & Plan Blood pressure modestly elevated. - elect DEBBI/ARB in DM (ACR 44) > start losartan 25 03/17 Diabetic foot ulcer (CMS/HCC) ([facility]) Assessment & Plan Wound to planter 1st metatarsal head. S/p debridement with podiatry 03/07, significant depth but negative probe to bone. L foot XR with no OM - continue daily dressing changes - Wound RN consult for final recommendations for HHRN. - WBAT in heel strike shoe per PT - follow up in wound center at discharge - diabetic shoes with custom offloading inserts for basketballs and footballs reverser sheogear - Heel strike shoe is causing the patient difficulty walking, collaborating with PT, nursing, DM re: solutions - collab w/ PT, ordered shoe for right foot to assist with balance / walking > mobility improved Adjustment disorder Assessment & Plan PHQ-4 with likely depression, symptoms are new [...] mother is a major motivator for patient Class 3 obesity (HCC) Assessment & Plan Complicates all aspects of care. - Perform STOP BANG > At least intermediate risk > Amb ref pulm vs sleep - Eval for bariatric surgery, GLP-RA would be appropriate Anemia Assessment & Plan BL 10-11. No signs of bleeding -CTM Hgb Vitamin D deficiency Assessment & Plan Undetectable Vit D Level - continue vit d 50k international units twice weekly x 2 months and calcium supplementation for p2asaaps. - plan for vit d 2k daily after 50k loading phase - f/u with PCP Code status : Full Code Diet : Adult Diet Restricted; Consistent Carbohydrate PT/OT Dispo Rec : PT Recommendation/Plan: Inpatient Rehab Facility / OT Recommendation: Inpatient Rehab Facility Supplementary Attestation The total encounter time on this service date was 51 minutes which was spent performing a [id number] encounter and personally completing the provider-level activities documented in the note. This includes time spent prior to the visit and after the visit in direct care of the patient. This time does not include time spent in any separately reportable services. Ira Starks NP Cosigned by Evy Chong MD at 03/23/2023 10:21 PM CDT Associated attestation - Evy Chong MD - 03/23/2023 10:21 PM CDT I have seen and examined the patient on 03/23/23 in conjunction with the non- physician provider. * Graham Salmeron, RN - 03/23/2023 11:21 AM CDT Note Teller noted patient has been recommended for IPR by PT/OT. Note Teller met with the patientat bedside to discussion recommendations by therapy and to work on a potential discharge disposition plan since patient is not an IPR rehab candidate per Rand. Note Teller provided education to patient on therapy recommendations and home health services. Patient reported he was interested in home health. clinical study manager provided a home health list to patient and family. Patient and family selected the following choices (preference order): NO PREFERENCE clinical study manager sent out referrals via [facility]. CM [facility] with [facility] and family. Patient not wishing to discharge to a SNF at this time and wishes to discharge to home with Home Health services if available. Stanton Salmeron STEAM FINISHER [employer]sa Screener For emergent Case Management needs before 7 AM or after 3:30 PM Thursday-Thursday, please call the city manager. For weekend and holiday Case Management needs from the hours of 8:00 AM to 4:30 PM, please see EpicTreatment team the assigned weekend Note Teller. * Riya Madison, PT - 03/23/2023 9:00 AM CDT Physical Therapy Progress Note NOTE: This is a summary note of the elizabeth components of the treatment session. For full details, review chart for all flowsheets documented on by this physical therapy clinician on this date. Vital signs documented in vital signs flowsheet. Care plan progress documented in Care Plan Activity. For questions, please review the treatment team and contact the PT or AUTOMOBILE LIGHTS ASSEMBLER currently assigned to this patient. If a physical therapy clinician is not assigned to this patient, please call [phone]. 03/23/23 0900 PT Last Visit Session Type Treatment PT Received On 03/23/23 Safe Environment Arm band checked;Patient found in supine;Gait belt utilized for all out of bed mobility Subjective Agreeable to Therapy Family/Caregiver Present No Precautions Precautions Fall risk Weight Bearing Restrictions Yes LLE Weight Bearing WBAT Braces/Orthoses Heel strike shoe;Other (Heel strike shoe donned on L foot, post op shoe donned on R foot (for balance)) Activity Tolerance Activity Tolerance Comments Erick: somewhat hard Pain Assessment Pain Assessment 0-10 Pain Score 0 - No pain Cognition Arousal/Alertness Alert;Appropriate responses to stimuli Orientation Oriented X4 (person, place, time, situation) Following Commands Follows all commands and directions without difficulty Safety Judgment Good awareness of safety precautions Compliance/Behavior Easy to engage Balance Balance Yes Static Sitting Balance Static Sitting-Balance Support No upper extremity supported;Feet supported Static Sitting-Sitting Surface Bed Static Sitting-Level of Assistance Distant supervision Static Sitting-Comment/# of Minutes For safety Static Standing Balance Static Standing-Balance Support No upper extremity supported Static Standing-Standing Surface Floor Static Standing-Level of Assistance Contact guard Static Standing-Comment/# of Minutes CGA for safety and balance Bed Mobility Bed Mobility Yes Bed Mobility 1 Bed Mobility From 1 Supine Bed Mobility Type 1 To and from Bed Mobility to 1 Edge of bed Level of Assistance 1 Distant Supervision Bed Mobility Comments 1 HOB elevated, DS for safety Transfers Transfer Yes Transfer 1 Transfer From 1 Sit Transfer Type 1 To and from Transfer to 1 Stand Technique 1 Sit to stand;Stand to sit Transfer Device 1 Wheeled walker Transfer Level of Assistance 1 Distant supervision Trials/Comments 1 DS for safety and balance Ambulation Ambulation Yes Ambulation 1 Distance (ft) 1 125 Surface 1 Level tile Device 1 No device Assistance 1 Contact Guard Assist Gait: Requires assist with 1 Maintaining balance Gait: Requires verbal cues to 1 Pace activity;Utilize appropriate gait sequencing;Increase step length Gait Deviations 1 Base of support - increased;Catarina - decreased;Posture - flexed;Step length - decreased Ambulation Comments 1 x1 LOB with Min A to correct with turning Other Comments Other PT Comments Pt demonstrates improved overall mobility but still requires minor assistance with ambulating without a device. Pt reports increased concern for caring for mother on his own with current mobility status and does not feel as though home is a safe option for himself nor his mom. 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 Basic Mobility - 6 Click How much difficulty does the patient have: Turning over in bed 4 How much difficulty does the patient currently have: Sitting down and standing up from a chair witharms? 4 How much difficulty does the patient have: Moving from lying on back to sitting on the side of the bed? 4 How much difficulty does the patient have: Moving to and from a bed to a chair including wheelchair? 4 How much help does the patient currently need: Walk in hospital room? 3 How much help from another person does the patient currently need: Climbing 3-5 steps with a railing? 3 Total 6 Click Score (range 6-24) 22 Score Interpretation 47.40 Safe Environment End of Therapy Session Safe Environment End of Therapy Session Patient left supine in bed;Call light within reach;Overbed table within reach Assessment Prognosis Good Problem List Gait deviations;Decreased strength;Decreased endurance;Impaired balance;Decreased mobility Barriers to Discharge Current Mobility Status;Decreased caregiver support Plan Plan Continue with current plan;If this is the last note, consider this the discharge summary Recommendation/Plan PT Recommendation/Plan Inpatient Rehab Facility Patient at high risk for Falls;Readmission;Injury due to decreased ability to care for self;Injury due to reduced functional status;Injury due to balance deficits Recommend Inpatient Rehab/Acute Rehab due to Ability to actively participate in intensive therapy 3hours/day, 5 days/week or 900 minutes per week;Highly motivated to participate in therapy;Not at baseline due to impaired ability to complete ADLs;Impaired ability to complete functional mobility;Requires multiple therapy disciplines to address functional deficits PT Recommendation/Plan Comments Pending progress PT Frequency during current admission 3-5x/wk Treatment/Interventions during current admission Balance Training;Bed mobility;Endurance training;Gait training;Neuromuscular re-education;Transfer training;Strengthening;Therapeutic activity;Therapeutic exercise Progress during current admission Progressing toward goals PT - Next Appointment 03/25/23 Multi-Disciplinary Problems (from Physical Therapy) Active Problems Problem: Mobility Start Date: 03/08/23 Goal Start Date Expected End Date End Date LTG - Patient will ambulate community distance 03/08/23 05/07/23 -- Goal Details: Without AD independently Goal Start Date Expected End Date End Date STG - Patient will ambulate 03/08/23 03/27/23 -- Goal Details: 150 feet with LRD independently Problem: Transfers Start Date: 03/08/23 Goal Start Date Expected End Date End Date STG - Patient to transfer to and from sit to supine 03/08/23 03/27/23 -- Goal Details: Independently Goal Start Date Expected End Date End Date STG - Patient will transfer sit to and from stand 03/08/23 03/27/23 -- Goal Details: Independently Problem: Orthotic Start Date: 03/08/23 Goal Start Date Expected End Date End Date STG - Patient and/or caregiver will perform home exercise program with the following level of assist: 03/08/23 03/27/23 -- Goal Details: Independently in order to maintain strength and improve ROM * Colten Jaleesachristianne Soriano - 03/23/2023 7:56 AM CDT Occupational Therapy Occupational Therapy Progress Note NOTE: This is a summary note of the elizabeth components of the treatment session. For full details, review chart for all flowsheets documented on by this occupational therapy clinician on this date. Vitalsigns documented in vital signs flowsheet. Care plan progress documented in Care Plan Activity. For questions, please review the treatment team and contact the occupational therapist currently assigned to this patient. If an occupational therapist is not assigned to this patient, please call [phone]. 03/23/23 0756 General Session Type Treatment OT Received On 03/23/23 Safe Environment Arm band checked;Patient found in supine;Gait belt utilized for all out of bed mobility Subjective Agreeable to Therapy Family/Caregiver Present No Precautions Precautions Fall risk Weight Bearing Restrictions Yes LLE Weight Bearing WBAT Braces/Orthoses Heel strike shoe (LLE, post op shoe RLE) Pain Assessment Pain Assessment No/denies pain Balance Balance Yes Static Sitting Balance Static Sitting-Balance Support No upper extremity supported;Feet supported Static Sitting-Sitting Surface Bed Static Sitting-Level of Assistance Distant supervision Static Sitting-Comment/# of Minutes for safety Dynamic Sitting Balance Dynamic Sitting-Balance Support No upper extremity supported;Feet supported Dynamic Sitting-Balance Lateral lean;Forward lean;Reaching for objects;Reaching across midline Dynamic Sitting-Sitting Surface Bed Dynamic Sitting-Level of Assistance Close supervision Dynamic Sitting-Comments for safety Static Standing Balance Static Standing-Balance Support No upper extremity supported Static Standing-Standing Surface Floor Static Standing-Level of Assistance Minimum assistance Static Standing-Comment/# of Minutes for safety Dynamic Standing Balance Dynamic Standing-Balance Support No upper extremity supported Dynamic Standing-Balance Lateral lean;Forward lean;Reaching for objects;Reaching across midline Dynamic Standing-Standing Surface Floor Dynamic Standing-Level of Assistance Minimum assistance Dynamic Standing-Comments for safety with turns during mobility and reaching to floor ADL ADLS (WDL) X Grooming Grooming: Where assessed Standing at sink Grooming: Level of assistance Minimum Assist (task set up, balance min) Grooming: Assistance with Safety LE Dressing LE Dressing: Where assessed Sitting;Edge of bed LE Dressing: Level of assistance Moderate Assist (task: 12/17, balance min) LE Dressing: Assistance with Don/doff L sock;Thread RLE into pants;Thread LLE into pants;Thread RLEinto underwear;Thread LLE into underwear;Don/doff L shoe;Safety (VC's for figure 4 sitting, needs reinforcement) Room Mobility Room Mobility: Where assessed bed > toilet > sink > hallway > bed Health Management: Equipment Walker Room Mobility: Level of Assistance Minimum Assist Room Mobility comment for safety/steadying with turning with w/w during functional mobility Bed Mobility Bed Mobility Yes Bed Mobility 1 Bed Mobility From 1 Supine Bed Mobility Type 1 To and from Bed Mobility to 1 Edge of bed Level of Assistance 1 Distant Supervision Bed Mobility Comments 1 HOB elevated Transfers Transfer Yes Transfer 1 Transfer From 1 Sit Transfer Type 1 To and from Transfer to 1 Stand Technique 1 Sit to stand;Stand to sit Transfer Device 1 Wheeled walker Transfer Level of Assistance 1 Distant supervision Trials/Comments 1 for safety/steadying Toilet Transfers Toilet Transfer From Bed Toilet Transfer Type To Toilet Transfer to Standard toilet Toilet Transfer Technique Ambulating Toilet Transfer: Equipment Wheeled walker Toilet Transfers Minimal assistance Toilet Transfers Comments for force production and steadying RUE Assessment RUE Assessment WFL LUE Assessment LUE Assessment WFL Cognition Arousal/Alertness Alert;Appropriate responses to stimuli Attention Span Appears intact Memory Appears intact Current communication Appears Intact Orientation Oriented X4 (person, place, time, situation) Following Commands Follows all commands and directions without difficulty Safety Judgment Decreased awareness of need for assistance Awareness of Errors Assistance required to identify errors made Insight Decreased awareness of deficits Problem Solving Assistance required to identify errors made Compliance/Behavior Easy to engage Perseveration Not present Other Comments Comments Session focused on LB dressing, functional mobility in preparation for ADL/IADL completion, toilet transfer, and simulated grooming activities. Pt. motivated to increase independence and return to PLOF but required cues/assist for safety and technique throughout session. Daily Activity - 6 Clicks Putting on and taking off regular lower body clothing 2 Bathing 3 Toileting 3 Putting on and taking off upper body clothing 3 Personal Grooming 3 Eating Meals 3 Total Score (range 6-24) 17 Score Interpretation 37.26 Safe Environment End of Therapy Session Safe Environment End of Therapy Session Patient left supine in bed;RN notified;Call light within reach;Overbed table within reach Assessment Problem List Decreased endurance;Decreased balance;Decreased functional mobility;Decreased ADL independence;Decreased IADL independence Barriers to Discharge Current Mobility Status;Home environment challenged (Current ADL/IADL status) Plan Plan Continue with current plan;If this is the last note, consider this the discharge summary Recommendation/Plan OT Recommendation Inpatient Rehab Facility Patient at high risk for Falls;Readmission;Injury due to reduced functional status;Injury due to decreased ability to care for self;Injury due to balance deficits;Injury at home as patient has not returned to prior level of function;Prolonged dependence for self care tasks Recommend Inpatient Rehab/Acute Rehab due to Ability to actively participate in intensive therapy 3hours/day, 5 days/week or 900 minutes per week;Highly motivated to participate in therapy;Not at baseline due to impaired ability to complete ADLs;Impaired ability to complete functional mobility;Requires greater than 25% physical assistance with most ADL tasks;Requires multiple therapy disciplinesto address functional deficits OT Frequency during current admission 3-5x/wk Treatment/Interventions during current admission ADL/IADL retraining;Balance Training;Compensatory technique education;Endurance training;Functional mobility training;Therapeutic activity;Therapeuticexercise Progress during current admission Progressing toward goals OT - Next Appointment 03/25/23 OT - OK to Discharge No Multi-Disciplinary Problems (from Occupational Therapy) Active Problems Problem: Dressings Lower Extremities Start Date: 03/14/23 Goal Start Date Expected End Date End Date STG - Patient to complete lower body dressing 03/14/23 04/06/23 -- Goal Details: SPV Problem: Grooming Start Date: 03/14/23 Goal Start Date Expected End Date End Date STG - Patient will complete grooming 03/14/23 04/06/23 -- Goal Details: SPV at sink Problem: Transfers Start Date: 03/14/23 Goal Start Date Expected End Date End Date STG - Patient will perform toilet transfer 03/14/23 04/06/23 -- Goal Details: To/from toilet Cosigned by Mary Bhakta OT at 03/26/2023 7:07 AM CDT * Jaleesa Abel - 03/23/2023 7:56 AM CDT Occupational Therapy Occupational Therapy Progress Note NOTE: This is a summary note of the elizabeth components of the treatment session. For full details, review chart for all flowsheets documented on by this occupational therapy clinician on this date. Vitalsigns documented in vital signs flowsheet. Care plan progress documented in Care Plan Activity. For questions, please review the treatment team and contact the occupational therapist currently assigned to this patient. If an occupational therapist is not assigned to this patient, please call [phone]. 03/23/23 0756 General Session Type Treatment OT Received On 03/23/23 Safe Environment Arm band checked;Patient found in supine;Gait belt utilized for all out of bed mobility Subjective Agreeable to Therapy Family/Caregiver Present No Precautions Precautions Fall risk Weight Bearing Restrictions Yes LLE Weight Bearing WBAT Braces/Orthoses Heel strike shoe (LLE, post op shoe RLE) Pain Assessment Pain Assessment No/denies pain Balance Balance Yes Static Sitting Balance Static Sitting-Balance Support No upper extremity supported;Feet supported Static Sitting-Sitting Surface Bed Static Sitting-Level of Assistance Distant supervision Static Sitting-Comment/# of Minutes for safety Dynamic Sitting Balance Dynamic Sitting-Balance Support No upper extremity supported;Feet supported Dynamic Sitting-Balance Lateral lean;Forward lean;Reaching for objects;Reaching across midline Dynamic Sitting-Sitting Surface Bed Dynamic Sitting-Level of Assistance Close supervision Dynamic Sitting-Comments for safety Static Standing Balance Static Standing-Balance Support No upper extremity supported Static Standing-Standing Surface Floor Static Standing-Level of Assistance Minimum assistance Static Standing-Comment/# of Minutes for safety Dynamic Standing Balance Dynamic Standing-Balance Support No upper extremity supported Dynamic Standing-Balance Lateral lean;Forward lean;Reaching for objects;Reaching across midline Dynamic Standing-Standing Surface Floor Dynamic Standing-Level of Assistance Minimum assistance Dynamic Standing-Comments for safety with turns during mobility and reaching to floor ADL ADLS (WDL) X Grooming Grooming: Where assessed Standing at sink Grooming: Level of assistance Minimum Assist (task set up, balance min) Grooming: Assistance with Safety LE Dressing LE Dressing: Where assessed Sitting;Edge of bed LE Dressing: Level of assistance Moderate Assist (task: 12/17, balance min) LE Dressing: Assistance with Don/doff L sock;Thread RLE into pants;Thread LLE into pants;Thread RLEinto underwear;Thread LLE into underwear;Don/doff L shoe;Safety (VC's for figure 4 sitting, needs reinforcement) Room Mobility Room Mobility: Where assessed bed > toilet > sink > hallway > bed Health Management: Equipment Walker Room Mobility: Level of Assistance Minimum Assist Room Mobility comment for safety/steadying with turning with w/w during functional mobility Bed Mobility Bed Mobility Yes Bed Mobility 1 Bed Mobility From 1 Supine Bed Mobility Type 1 To and from Bed Mobility to 1 Edge of bed Level of Assistance 1 Distant Supervision Bed Mobility Comments 1 HOB elevated Transfers Transfer Yes Transfer 1 Transfer From 1 Sit Transfer Type 1 To and from Transfer to 1 Stand Technique 1 Sit to stand;Stand to sit Transfer Device 1 Wheeled walker Transfer Level of Assistance 1 Distant supervision Trials/Comments 1 for safety/steadying Toilet Transfers Toilet Transfer From Bed Toilet Transfer Type To Toilet Transfer to Standard toilet Toilet Transfer Technique Ambulating Toilet Transfer: Equipment Wheeled walker Toilet Transfers Minimal assistance Toilet Transfers Comments for force production and steadying RUE Assessment RUE Assessment WFL LUE Assessment LUE Assessment WFL Cognition Arousal/Alertness Alert;Appropriate responses to stimuli Attention Span Appears intact Memory Appears intact Current communication Appears Intact Orientation Oriented X4 (person, place, time, situation) Following Commands Follows all commands and directions without difficulty Safety Judgment Decreased awareness of need for assistance Awareness of Errors Assistance required to identify errors made Insight Decreased awareness of deficits Problem Solving Assistance required to identify errors made Compliance/Behavior Easy to engage Perseveration Not present Other Comments Comments Session focused on LB dressing, functional mobility in preparation for ADL/IADL completion, toilet transfer, and simulated grooming activities. Pt. motivated to increase independence and return to PLOF but required cues/assist for safety and technique throughout session. Daily Activity - 6 Clicks Putting on and taking off regular lower body clothing 2 Bathing 3 Toileting 3 Putting on and taking off upper body clothing 3 Personal Grooming 3 Eating Meals 3 Total Score (range 6-24) 17 Score Interpretation 37.26 Safe Environment End of Therapy Session Safe Environment End of Therapy Session Patient left supine in bed;RN notified;Call light within reach;Overbed table within reach Assessment Problem List Decreased endurance;Decreased balance;Decreased functional mobility;Decreased ADL independence;Decreased IADL independence Barriers to Discharge Current Mobility Status;Home environment challenged (Current ADL/IADL status) Plan Plan Continue with current plan;If this is the last note, consider this the discharge summary Recommendation/Plan OT Recommendation Inpatient Rehab Facility Patient at high risk for Falls;Readmission;Injury due to reduced functional status;Injury due to decreased ability to care for self;Injury due to balance deficits;Injury at home as patient has not returned to prior level of function;Prolonged dependence for self care tasks Recommend Inpatient Rehab/Acute Rehab due to Ability to actively participate in intensive therapy 3hours/day, 5 days/week or 900 minutes per week;Highly motivated to participate in therapy;Not at baseline due to impaired ability to complete ADLs;Impaired ability to complete functional mobility;Requires greater than 25% physical assistance with most ADL tasks;Requires multiple therapy disciplinesto address functional deficits OT Frequency during current admission 3-5x/wk Treatment/Interventions during current admission ADL/IADL retraining;Balance Training;Compensatory technique education;Endurance training;Functional mobility training;Therapeutic activity;Therapeuticexercise Progress during current admission Progressing toward goals OT - Next Appointment 03/25/23 OT - OK to Discharge No Multi-Disciplinary Problems (from Occupational Therapy) Active Problems Problem: Dressings Lower Extremities Start Date: 03/14/23 Goal Start Date Expected End Date End Date STG - Patient to complete lower body dressing 03/14/23 04/06/23 -- Goal Details: SPV Problem: Grooming Start Date: 03/14/23 Goal Start Date Expected End Date End Date STG - Patient will complete grooming 03/14/23 04/06/23 -- Goal Details: SPV at sink Problem: Transfers Start Date: 03/14/23 Goal Start Date Expected End Date End Date STG - Patient will perform toilet transfer 03/14/23 04/06/23 -- Goal Details: To/from toilet Cosigned by Mary Bhakta OT at 03/23/2023 9:37 AM CDT * Luis Daniel Hanna NP - 03/22/2023 11:07 AM CDT Daily Progress Note Division of Hospital Medicine Name: Rene Hyatt : 1980 Today's Date: March 22, 2023 Age: 42 y.o. male Admission: 03/06/2023 Bed: [id number] LOS: 16 days Subjective Chief complaint: Perineal abscess Interval History Patient is alert and awake on eval this AM. Endorses fatigue, slept poorly, due to nocturia. He hasno other complaint, denies hesitancy, urgency, dysuria / burning with urination, foul or cloudy urine. He has no further complaint or question. Objective Scheduled Meds PRN Meds Infusions acetaminophen, 1,000 mg, oral, Q6H ASTON ampicillin-sulbactam, 3 g, intravenous, Q6H ASTON atorvastatin, 20 mg, oral, Nightly calcium carbonate, 500 mg of elemental calcium, oral, BID enoxaparin, 40 mg, subcutaneous, Q12H ASTON ergocalciferol, 50,000 Units, oral, Once per day on Mon Inna insulin glargine, 20 Units, subcutaneous, Nightly insulin lispro, 0-10 Units, subcutaneous, TID with meals insulin lispro, 0-5 Units, subcutaneous, Nightly insulin lispro, 12 Units, subcutaneous, TID with meals losartan, 25 mg, oral, Daily micafungin, 100 mg, intravenous, Q24H ASTON pantoprazole DR, 40 mg, oral, Daily dextrose, 15 g, oral, Q15 Min PRN OR dextrose, 250 mL, intravenous, Q15 Min PRN glucagon, 1 mg, intramuscular, Q30 Min PRN ondansetron, 4 mg, intravenous, Q4H PRN oxyCODONE, 5 mg, oral, Q4H PRN prochlorperazine, 5 mg, intravenous, Q6H PRN ramelteon, 8 mg, oral, Nightly PRN simethicone, 80 mg, oral, BID PRN white petrolatum-mineral oiL, , topical, BID PRN Vitals Most Recent Vitals: T 36.6 ??C (97.9 ??F), HR 92, BP 127/70, RR 14, SpO2 94 %. 24hr Min/Max: Temp Min: 36.6 ??C (97.9 ??F) Max: 37.1 ??C (98.7 ??F) Pulse Min: 92 Max: 94 BP Min: 121/73 Max: 141/73 Resp Min: 14 Max: 18 SpO2 Min: 94 % Max: 97 % Intake/Output Summary (Last 24 hours) at 03/22/2023 1107 Last data filed at 03/22/2023 0605 Gross per 24 hour Intake 850 ml Output 848 ml Net 2 ml Physical Exam Constitutional: morbidly obese Eyes: EOMI, anicteric, maintains eye contact : Edematous scrotum, clean incision, otherwise normal, drain at ~11 oclock relative to penis, minimal serosang output ENT: speech clear Lungs: unlabored, without audible wheeze Skin: No new rashes, lesions or bruises on visible skin Extremities: Normal without edema or cyanosis, lower extremity numbness / tingling, left foot wrapped in gauze Neurologic: AOx4, CNII-XII intact, normal strength Psychiatric: Fatigued I have reviewed the patient's vital signs. Lines, Drains, Airways Peripheral IV 03/21/23 22 G Posterior;Right Hand (Active) Closed/Suction/Open Drain 1 Perineal Bulb 19 Fr. (Active) Labs/Diagnostic Review Na 138 Cl 106 BUN 16 K 4.1 CO2 28 Cr 0.81 Mg -, G AST - ALT - Alk Phos - Ca 8.8 TP - Alb - Total Bili: - Direct Bili: - \ Hgb 10.4 / WBC 9.0 -------- Plt 228 / MCV 84.9 \ INR - (Labs above are the most recent result obtained in the last 24 hours. For additional labs/trends, see Epic.) I have reviewed the laboratory results. Imaging Review No results found. 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 PT denies SIRS. With neutrophilic leukocytosis and elevated inflammatory markers. CTAP w contrast w/ scrotal soft tissue thickening and subQ fluid / air suggesting abscess. S/p OR 03/06 with urology and [facility] for I&D of abscess and debridement. No tracking to rectum. S/p wound vac placement with urology. 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 Op cultures 03/06 growing strep anginosus [...] Op culture 03/10 growing mixed organisms and destiny glabrata susceptibility to fluconazole - continue Unasyn (03/09-), Micafungin 100 mg IV (03/15-) > Plan for 14d (End date 03/28) > Maytransition to Augmentin 875/125 BID and Fluconazole 800mg every day at discharge. - Urology will remove drain when patient is ready for discharge however he may be here longer than they anticipate - OOBTC daily, chair ordered - ambulatory, remove min - leukocytosis resolved 03/21 AM Class 3 obesity (HCC) Assessment & Plan Complicates all aspects of care. - Perform STOP BANG > At least intermediate risk > Amb ref pulm vs sleep - Eval for bariatric surgery, GLP-RA would be appropriate Adjustment disorder Assessment & Plan PHQ-4 with likely depression, symptoms are new [...] mother is a major motivator for patient Hypertension Assessment & Plan Blood pressure modestly elevated. - elect DEBBI/ARB in DM (ACR 44) > start losartan 25 03/17 Anemia Assessment & Plan Hgb 11.2 and BL 10-11. No signs of bleeding -CTM Hgb Diabetic foot ulcer (CMS/HCC) ([facility]) Assessment & Plan Wound to planter 1st metatarsal head. S/p debridement with podiatry 03/07, significant depth but negative probe to bone. L foot XR with no OM - continue daily dressing changes - WBAT in heel strike shoe per PT - follow up in wound center at discharge - diabetic shoes with custom offloading inserts for basketballs and footballs reverser sheogear - Heel strike shoe is causing the patient difficulty walking, collaborating with PT, nursing, DM re: solutions - collab w/ PT, ordered shoe for right foot to assist with balance / walking > mobility improved Vitamin D deficiency Assessment & Plan Undetectable Vit D Level - continue vit d 50k international units twice weekly and calcium supplementation for x3 months. - plan for vit d 2k daily after 50k loading phase - f/u with PCP T1DM (type 1 diabetes mellitus) ([facility]) Assessment & Plan Endocrinology following and currently on basal bolus regimen. Insulin Ab, IA-2 Ab, ZNT8 Ab neg, GAD65 0.31 (<0.02) - cont lantus, lispro per endocrinology recs - continue atorvastatin 20 mg daily - patient seen by DM educator - If HTN, elect DEBBI/ARB (ACR 44) > see HTN. Code status : Full Code Diet : Adult Diet Restricted; Consistent Carbohydrate PT/OT Dispo Rec : PT Recommendation/Plan: Inpatient Rehab Facility (if declines, home with supervision and HHPT) / OT Recommendation: Inpatient Rehab Facility Supplementary Attestation The total encounter time on this service date was 24 minutes which was spent performing a [id number]-[id number] encounter and personally completing the provider-level activities documented in the note. This includes time spent prior to the visit and after the visit in direct care of the patient. This time does not include time spent in any separately reportable services. Luis Daniel Hanna NP Cosigned by Evy Chong MD at 03/22/2023 4:45 PM CDT Associated attestation - Evy Chong MD - 03/22/2023 4:45 PM CDT I have seen and examined the patient on 03/22/23 in conjunction with the non- physician provider. * Luis Daniel Hanna, TEJINDER - 03/21/2023 11:32 AM CDT Daily Progress Note Division of Hospital Medicine Name: Rene Hyatt : 1980 Today's Date: March 21, 2023 Age: 42 y.o. male Admission: 03/06/2023 Bed: [place] [id number] LOS: 15 days Subjective Chief complaint: Perineal infection Interval History Patient is alert and awake on eval this AM. He states he can walk to the restroom, we agree to remove min. He has no other complaint or question. Objective Scheduled Meds PRN Meds Infusions acetaminophen, 1,000 mg, oral, Q6H ASTON ampicillin-sulbactam, 3 g, intravenous, Q6H ASTON atorvastatin, 20 mg, oral, Nightly calcium carbonate, 500 mg of elemental calcium, oral, BID enoxaparin, 40 mg, subcutaneous, Q12H ASTON ergocalciferol, 50,000 Units, oral, Once per day on Mon Inna insulin glargine, 20 Units, subcutaneous, Nightly insulin lispro, 0-10 Units, subcutaneous, TID with meals insulin lispro, 0-5 Units, subcutaneous, Nightly insulin lispro, 12 Units, subcutaneous, TID with meals losartan, 25 mg, oral, Daily micafungin, 100 mg, intravenous, Q24H ASTON pantoprazole DR, 40 mg, oral, Daily dextrose, 15 g, oral, Q15 Min PRN OR dextrose, 250 mL, intravenous, Q15 Min PRN glucagon, 1 mg, intramuscular, Q30 Min PRN ondansetron, 4 mg, intravenous, Q4H PRN oxyCODONE, 5 mg, oral, Q4H PRN prochlorperazine, 5 mg, intravenous, Q6H PRN ramelteon, 8 mg, oral, Nightly PRN simethicone, 80 mg, oral, BID PRN white petrolatum-mineral oiL, , topical, BID PRN Vitals Most Recent Vitals: T 36.7 ??C (98 ??F), HR 83, BP 144/73, RR 18, SpO2 94 %. 24hr Min/Max: Temp Min: 36.6 ??C (97.9 ??F) Max: 37.2 ??C (98.9 ??F) Pulse Min: 83 Max: 98 BP Min: 116/61 Max: 146/62 Resp Min: 16 Max: 20 SpO2 Min: 94 % Max: 96 % Intake/Output Summary (Last 24 hours) at 03/21/2023 1132 Last data filed at 03/21/2023 0835 Gross per 24 hour Intake 770 ml Output 2780 ml Net -2010 ml Physical Exam Constitutional: NAD, morbidly obese Eyes: EOMI, anicteric, maintains eye contact : Edematous scrotum, clean incision, otherwise normal, drain at ~11 o'clock to penis, minimal serosang output ENT: NCAT, speech clear Lungs: unlabored, without audible wheeze Skin: No new rashes, lesions or bruises on visible skin Extremities: Normal without edema or cyanosis, lower extremity numbness / tingling, left foot wrapped in gauze with betadine stain Neurologic: AOx4, CNII-XII intact, normal strength Psychiatric: Normal affect I have reviewed the patient's vital signs. Lines, Drains, Airways Peripheral IV 03/19/23 22 G Left Antecubital (Active) Closed/Suction/Open Drain 1 Perineal Bulb 19 Fr. (Active) Urethral Catheter Straight-tip;Non-latex (Active) Labs/Diagnostic Review Na 136 Cl 102 BUN 17 K 3.8 CO2 27 Cr 0.77 Mg -, G AST - ALT - Alk Phos - Ca 8.8 TP - Alb - Total Bili: - Direct Bili: - \ Hgb 11.1 / WBC 9.6 -------- Plt 239 / MCV 85.4 \ INR - (Labs above are the most recent result obtained in the last 24 hours. For additional labs/trends, see Epic.) I have reviewed the laboratory results. Imaging Review No results found. 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 PT denies SIRS. With neutrophilic leukocytosis and elevated inflammatory markers. CTAP w contrast w/ scrotal soft tissue thickening and subQ fluid / air suggesting abscess. S/p OR 9/29 with urology and ACCS for I&D of abscess and debridement. No tracking to rectum. S/p wound vac placement with urology. 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 Op cultures 03/06 growing strep anginosus [...] Op culture 03/10 growing mixed organisms and destiny glabrata susceptibility to fluconazole - continue Unasyn (03/09-), Micafungin 100 mg IV (03/15-) > Plan for 14d (End date 03/28) > Maytransition to Augmentin 875/125 BID and Fluconazole 800mg every day at discharge. - Urology will remove drain when patient is ready for discharge however he may be here longer than they anticipate - OOBTC daily, chair ordered - ambulatory, remove min - leukocytosis resolve 03/21 AM Class 3 obesity (HCC) Assessment & Plan Complicates all aspects of care. - Perform STOP BANG > At least intermediate risk > Amb ref pulm vs sleep - Eval for bariatric surgery, GLP-RA would be appropriate Adjustment disorder Assessment & Plan PHQ-4 with likely depression, symptoms are new [...] mother is a major motivator for patient Hypertension Assessment & Plan Blood pressure modestly elevated. - elect DEBBI/ARB in DM (ACR 44) > start losartan 25 03/17 Anemia Assessment & Plan Hgb 11.2 and BL 10-11. No signs of bleeding -CTM Hgb Diabetic foot ulcer (CMS/HCC) ([facility]) Assessment & Plan Wound to planter 1st metatarsal head. S/p debridement with podiatry 03/07, significant depth but negative probe to bone. L foot XR with no OM - continue daily dressing changes - WBAT in heel strike shoe per PT - follow up in wound center at discharge - diabetic shoes with custom offloading inserts for basketballs and footballs reverser sheogear - Heel strike shoe is causing the patient difficulty walking, collaborating with PT, nursing, DM re: solutions - collab w/ PT, ordered shoe for right foot to assist with balance / walking > mobility improved Vitamin D deficiency Assessment & Plan Undetectable Vit D Level - continue vit d 50k international units twice weekly and calcium supplementation for x3 months. - plan for vit d 2k daily after 50k loading phase - f/u with PCP T1DM (type 1 diabetes mellitus) ([facility]) Assessment & Plan Endocrinology following and currently on basal bolus regimen. Insulin Ab, IA-2 Ab, ZNT8 Ab neg, GAD65 0.31 (<0.02) - cont lantus, lispro per endocrinology recs - continue atorvastatin 20 mg daily - patient seen by DM educator - If HTN, elect DEBBI/ARB (ACR 44) > see HTN. Code status : Full Code Diet : Adult Diet Restricted; Consistent Carbohydrate PT/OT Dispo Rec : PT Recommendation/Plan: Inpatient Rehab Facility (if declines, home with supervision and HHPT) / OT Recommendation: Inpatient Rehab Facility Supplementary Attestation The total encounter time on this service date was 27 minutes which was spent performing a [id number] encounter and personally completing the provider-level activities documented in the note. This includes time spent prior to the visit and after the visit in direct care of the patient. This time does not include time spent in any separately reportable services. Luis Daniel Hanna NP Cosigned by Evy Chong MD at 03/21/2023 1:04 PM CDT Associated attestation - Evy Chong MD - 03/21/2023 1:04 PM CDT I have seen and examined the patient, and discussed plan of care on 03/21/23 in conjunction with the non-physician provider and agree on plan as below. Ambulatory, remove Min today, pending placement. * Luis Daniel Hanna, TEJINDER - 03/20/2023 11:33 AM CDT Daily Progress Note Division of [facility] Medicine Name: Rene Hyatt : 1980 Today's Date: March 20, 2023 Age: 42 y.o. male Admission: 03/06/2023 Bed: [id number] LOS: 14 days Subjective Chief complaint: Perineal cellulitis Interval History Patient is alert and awake on eval this AM. He has no specific complaint or question. He has begun walking with a walker and sitting in recliner. He is motivated. Objective Scheduled Meds PRN Meds Infusions acetaminophen, 1,000 mg, oral, Q6H ASTON ampicillin-sulbactam, 3 g, intravenous, Q6H ASTON atorvastatin, 20 mg, oral, Nightly calcium carbonate, 500 mg of elemental calcium, oral, BID enoxaparin, 40 mg, subcutaneous, Q12H ASTON ergocalciferol, 50,000 Units, oral, Once per day on Mon Inna insulin glargine, 20 Units, subcutaneous, Nightly insulin lispro, 0-10 Units, subcutaneous, TID with meals insulin lispro, 0-5 Units, subcutaneous, Nightly insulin lispro, 12 Units, subcutaneous, TID with meals losartan, 25 mg, oral, Daily micafungin, 100 mg, intravenous, Q24H ASTON pantoprazole DR, 40 mg, oral, Daily dextrose, 15 g, oral, Q15 Min PRN OR dextrose, 250 mL, intravenous, Q15 Min PRN glucagon, 1 mg, intramuscular, Q30 Min PRN ondansetron, 4 mg, intravenous, Q4H PRN oxyCODONE, 5 mg, oral, Q4H PRN prochlorperazine, 5 mg, intravenous, Q6H PRN ramelteon, 8 mg, oral, Nightly PRN simethicone, 80 mg, oral, BID PRN white petrolatum-mineral oiL, , topical, BID PRN Vitals Most Recent Vitals: T 36.6 ??C (97.9 ??F), HR 88, BP 150/73, RR 16, SpO2 96 %. 24hr Min/Max: Temp Min: 36.6 ??C (97.9 ??F) Max: 37.1 ??C (98.7 ??F) Pulse Min: 84 Max: 94 BP Min: 121/62 Max: 150/73 Resp Min: 16 Max: 18 SpO2 Min: 93 % Max: 96 % Intake/Output Summary (Last 24 hours) at 03/20/2023 1133 Last data filed at 03/20/2023 0900 Gross per 24 hour Intake 980 ml Output 870 ml Net 110 ml Physical Exam Constitutional: NAD, morbidly obese Eyes: EOMI, anicteric, maintains eye contact : Edematous scrotum, clean incision, otherwise normal ENT: NCAT, speech clear Lungs: unlabored, without audible wheeze Skin: No new rashes, lesions or bruises on visible skin Extremities: Normal without edema or cyanosis, lower extremity numbness / tingling, left foot wrapped in gauze with betadine stain Neurologic: AOx4, CNII-XII intact, normal strength Psychiatric: Normal affect I have reviewed the patient's vital signs. Lines, Drains, Airways Peripheral IV 03/19/23 22 G Left Antecubital (Active) Closed/Suction/Open Drain 1 Perineal Bulb 19 Fr. (Active) Urethral Catheter Straight-tip;Non-latex (Active) Labs/Diagnostic Review Na 140 Cl 103 BUN 11 K 3.9 CO2 28 Cr 0.83 Mg -, G AST - ALT - Alk Phos - Ca 8.7 TP - Alb - Total Bili: - Direct Bili: - \ Hgb 10.3 / WBC 10.0 -------- Plt 273 / MCV 84.4 \ INR - (Labs above are the most recent result obtained in the last 24 hours. For additional labs/trends, see Epic.) I have reviewed the laboratory results. Imaging Review No results found. 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 PT denies SIRS. With neutrophilic leukocytosis and elevated inflammatory markers. CTAP w contrast w/ scrotal soft tissue thickening and subQ fluid / air suggesting abscess. S/p OR 03/06 with urology and ACCS for I&D of abscess and debridement. No tracking to rectum. S/p wound vac placement with urology. 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 Op cultures 03/06 growing strep anginosus [...] Op culture 03/10 growing mixed organisms and destiny glabrata susceptibility to fluconazole - continue Unasyn (03/09-), Micafungin 100 mg IV (03/15-) > Plan for 14d (End date 03/28) > Maytransition to Augmentin 875/125 BID and Fluconazole 800mg every day at discharge. - Urology will remove drain when patient is ready for discharge however he may be here longer than they anticipate - OOBTC daily, chair ordered - plan to remove min when he can sit in recliner, his anatomy is not conducive to use of condom cath, nor successful use of urinal in bed Class 3 obesity (HCC) Assessment & Plan Complicates all aspects of care. - Perform STOP BANG > At least intermediate risk > Amb ref pulm vs sleep - Eval for bariatric surgery, GLP-RA would be appropriate Adjustment disorder Assessment & Plan PHQ-4 with likely depression, symptoms are new [...] mother is a major motivator for patient Hypertension Assessment & Plan Blood pressure modestly elevated. - elect DEBBI/ARB in DM (ACR 44) > start losartan 25 03/17 Anemia Assessment & Plan Hgb 11.2 and BL 10-11. No signs of bleeding -CTM Hgb Diabetic foot ulcer (CMS/HCC) ([facility]) Assessment & Plan Wound to planter 1st metatarsal head. S/p debridement with podiatry 03/07, significant depth but negative probe to bone. L foot XR with no OM - continue daily dressing changes - WBAT in heel strike shoe per PT - follow up in wound center at discharge - diabetic shoes with custom offloading inserts for alf sheogear - Heel strike shoe is causing the patient difficulty walking, collaborating with PT, nursing, DM re: solutions - collab w/ PT, ordered shoe for right foot to assist with balance / walking > mobility improved Vitamin D deficiency Assessment & Plan Undetectable Vit D Level - continue vit d 50k international units twice weekly and calcium supplementation for x3 months. - plan for vit d 2k daily after 50k loading phase - f/u with PCP T1DM (type 1 diabetes mellitus) ([facility]) Assessment & Plan Endocrinology following and currently on basal bolus regimen. Insulin Ab, IA-2 Ab, ZNT8 Ab neg, GAD65 0.31 (<0.02) - cont lantus, lispro per endocrinology recs - continue atorvastatin 20 mg daily - patient seen by DM educator - If HTN, elect DEBBI/ARB (ACR 44) > see HTN. Code status : Full Code Diet : Adult Diet Restricted; Consistent Carbohydrate PT/OT Dispo Rec : PT Recommendation/Plan: Inpatient Rehab Facility (if declines, home with supervision and HHPT) / OT Recommendation: Inpatient Rehab Facility Supplementary Attestation The total encounter time on this service date was 33 minutes which was spent performing a [id number] encounter and personally completing the provider-level activities documented in the note. This includes time spent prior to the visit and after the visit in direct care of the patient. This time does not include time spent in any separately reportable services. Luis Daniel Hanna NP Cosigned by Evy Chong MD at 03/21/2023 10:32 AM CDT Associated attestation - Van Chongalexi Ramirez MD - 03/21/2023 10:32 AM CDT I have seen and examined the patient, and discussed plan of acre on 03/20/2023 in conjunction with the non-physician provider and agree with plan below. * Luis Daniel Hanna NP - 03/19/2023 11:45 AM CDT Daily Progress Note Division of [facility] Medicine Name: Rene Hyatt : 1980 Today's Date: March 19, 2023 Age: 42 y.o. male Admission: 03/06/2023 Bed: [id number] LOS: 13 days Subjective Chief complaint: Perineal abscess Interval History Patient is alert and awake on eval this AM. He has no specific complaint or question. New footwear available, will work with PT. I placed bed in chair mode. Objective Scheduled Meds PRN Meds Infusions acetaminophen, 1,000 mg, oral, Q6H ASTON ampicillin-sulbactam, 3 g, intravenous, Q6H ASTON atorvastatin, 20 mg, oral, Nightly calcium carbonate, 500 mg of elemental calcium, oral, BID enoxaparin, 40 mg, subcutaneous, Q12H ASTON ergocalciferol, 50,000 Units, oral, Once per day on Mon Inna insulin glargine, 20 Units, subcutaneous, Nightly insulin lispro, 0-10 Units, subcutaneous, TID with meals insulin lispro, 0-5 Units, subcutaneous, Nightly insulin lispro, 12 Units, subcutaneous, TID with meals losartan, 25 mg, oral, Daily micafungin, 100 mg, intravenous, Q24H ASTON pantoprazole DR, 40 mg, oral, Daily dextrose, 15 g, oral, Q15 Min PRN OR dextrose, 250 mL, intravenous, Q15 Min PRN glucagon, 1 mg, intramuscular, Q30 Min PRN ondansetron, 4 mg, intravenous, Q4H PRN oxyCODONE, 5 mg, oral, Q4H PRN prochlorperazine, 5 mg, intravenous, Q6H PRN ramelteon, 8 mg, oral, Nightly PRN simethicone, 80 mg, oral, BID PRN white petrolatum-mineral oiL, , topical, BID PRN Vitals Most Recent Vitals: T 36.3 ??C (97.3 ??F), HR 87, BP 150/84, RR 17, SpO2 95 %. 24hr Min/Max: Temp Min: 36.3 ??C (97.3 ??F) Max: 37 ??C (98.6 ??F) Pulse Min: 78 Max: 89 BP Min: 126/53 Max: 150/84 Resp Min: 16 Max: 17 SpO2 Min: 95 % Max: 97 % Intake/Output Summary (Last 24 hours) at 03/19/2023 1147 Last data filed at 03/19/2023 0200 Gross per 24 hour Intake 650 ml Output 2930 ml Net -2280 ml Physical Exam Constitutional: NAD, morbidly obese Eyes: EOMI, anicteric, maintains eye contact ENT: NCAT, speech clear Lungs: unlabored, without audible wheeze Skin: No new rashes, lesions or bruises on visible skin Extremities: Normal without edema or cyanosis, lower extremity numbness / tingling, left foot wrapped in gauze with betadine stain Neurologic: AOx4, CNII-XII intact, normal strength Psychiatric: Normal affect I have reviewed the patient's vital signs. Lines, Drains, Airways Peripheral IV 03/06/23 20 G Right Antecubital (Active) Closed/Suction/Open Drain 1 Perineal Bulb 19 Fr. (Active) Urethral Catheter Straight-tip;Non-latex (Active) Labs/Diagnostic Review Na 140 Cl 103 BUN 11 K 3.9 CO2 28 Cr 0.83 Mg -, G AST 23 ALT 11 Alk Phos 68 Ca 8.7 TP - Alb 3.0 Total Bili: 0.2 Direct Bili: <0.2 \ Hgb 10.3 / WBC 10.0 -------- Plt 273 / MCV 84.4 \ INR - (Labs above are the most recent result obtained in the last 24 hours. For additional labs/trends, see Epic.) I have reviewed the laboratory results. Imaging Review No results found. 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 PT denies SIRS. With neutrophilic leukocytosis and elevated inflammatory markers. CTAP w contrast w/ scrotal soft tissue thickening and subQ fluid / air suggesting abscess. S/p OR 03/06 with urology and ACCS for I&D of abscess and debridement. No tracking to rectum. S/p wound vac placement with urology. 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 Op cultures 03/06 growing strep anginosus [...] Op culture 03/10 growing mixed organisms and destiny glabrata susceptibility to fluconazole - continue Unasyn (03/09-), Micafungin 100 mg IV (03/15-) > Plan for 14d (End date 03/28) > Maytransition to Augmentin 875/125 BID and Fluconazole 800mg every day at discharge. - Urology will remove drain when patient is ready for discharge however he may be here longer than they anticipate - OOBTC daily, chair ordered - plan to remove min when he can sit in recliner, his anatomy is not conducive to use of condom cath, nor successful use of urinal in bed Class 3 obesity (HCC) Assessment & Plan Complicates all aspects of care. - Perform STOP BANG > At least intermediate risk > Amb ref pulm vs sleep - Eval for bariatric surgery, GLP-RA would be appropriate Adjustment disorder Assessment & Plan PHQ-4 with likely depression, symptoms are new [...] mother is a major motivator for patient Hypertension Assessment & Plan Blood pressure modestly elevated. - elect DEBBI/ARB in DM (ACR 44) > start losartan 25 03/17 Anemia Assessment & Plan Hgb 11.2 and BL 10-11. No signs of bleeding -CTM Hgb Diabetic foot ulcer (CMS/HCC) ([facility]) Assessment & Plan Wound to planter 1st metatarsal head. S/p debridement with podiatry 03/07, significant depth but negative probe to bone. L foot XR with no OM - continue daily dressing changes - WBAT in heel strike shoe per PT - follow up in wound center at discharge - diabetic shoes with custom offloading inserts for alf sheogear - Heel strike shoe is causing the patient difficulty walking, collaborating with PT, nursing, DM re: solutions - collab w/ PT, ordered shoe for right foot to assist with balance / walking Vitamin D deficiency Assessment & Plan Undetectable Vit D Level - continue vit d 50k international units twice weekly and calcium supplementation for x3 months. - plan for vit d 2k daily after 50k loading phase - f/u with PCP T1DM (type 1 diabetes mellitus) ([facility]) Assessment & Plan Endocrinology following and currently on basal bolus regimen. Insulin Ab, IA-2 Ab, ZNT8 Ab neg, GAD65 0.31 (<0.02) - cont lantus, lispro per endocrinology recs - continue atorvastatin 20 mg daily - patient seen by DM educator - If HTN, elect DEBBI/ARB (ACR 44) > see HTN. Code status : Full Code Diet : Adult Diet Restricted; Consistent Carbohydrate PT/OT Dispo Rec : PT Recommendation/Plan: Inpatient Rehab Facility (if declines, home with supervision and HHPT) / OT Recommendation: Inpatient Rehab Facility Supplementary Attestation The total encounter time on this service date was 33 minutes which was spent performing a [id number] encounter and personally completing the provider-level activities documented in the note. This includes time spent prior to the visit and after the visit in direct care of the patient. This time does not include time spent in any separately reportable services. Luis Daniel Hanna NP Cosigned by Evy Chong MD at 03/20/2023 12:35 PM CDT Associated attestation - Evy Chong MD - 03/20/2023 12:35 PM CDT I have seen and examined the patient on 03/19/2023 in conjunction with the non- physician provider and agree with plan as documented below. * Maya Cunningham, PT - 03/19/2023 10:19 AM CDT Physical Therapy Physical Therapy Progress Note NOTE: This is a summary note of the elizabeth components of the treatment session. For full details, review chart for all flowsheets documented on by this physical therapy clinician on this date. Vital signs documented in vital signs flowsheet. Care plan progress documented in Care Plan Activity. For questions, please review the treatment team and contact the PT or [employer]BLER currently assigned to this patient. If a physical therapy clinician is not assigned to this patient, please call [phone]. 03/19/23 0944 PT Last Visit Session Type Treatment PT Received On 03/19/23 Safe Environment Arm band checked;Patient found in supine;Session completed bedside;Gait belt utilized for all out of bed mobility Subjective Agreeable to Therapy Family/Caregiver Present No Precautions Precautions Fall risk Weight Bearing Restrictions Yes LLE Weight Bearing WBAT (Heel focused wt bearing L LE with heel strike shoe) Braces/Orthoses Heel strike shoe;Other (L LE for heel strike, postop shoe R LE) Precaution Comments Instructed in use of heel strike shoe L LE and post op shoe R LE (to assist with balance) with all mobiltiy. Needs cues to prevent rocking forward on L forefoot with swing phase of gait Activity Tolerance Activity Tolerance Comments ERICK: SH to Hard Pain Assessment Pain Assessment No/denies pain Cognition Arousal/Alertness Alert;Appropriate responses to stimuli Orientation Oriented X4 (person, place, time, situation) Following Commands Follows all commands and directions without difficulty Safety Judgment Good awareness of safety precautions Compliance/Behavior Easy to engage Static Sitting Balance Static Sitting-Balance Support No upper extremity supported;Feet supported Static Sitting-Sitting Surface Bed Static Sitting-Level of Assistance Distant supervision Static Sitting-Comment/# of Minutes safety Static Standing Balance Static Standing-Balance Support No upper extremity supported Static Standing-Standing Surface Floor Static Standing-Level of Assistance Contact guard Static Standing-Comment/# of Minutes safety Dynamic Standing Balance Dynamic Standing-Balance Support No upper extremity supported Dynamic Standing-Balance (dynamic gait) Dynamic Standing-Standing Surface Floor Dynamic Standing-Level of Assistance Minimum assistance Dynamic Standing-Comments assist to prevent LOB with turns with gait Bed Mobility 1 Bed Mobility From 1 Supine Bed Mobility Type 1 To Bed Mobility to 1 Edge of bed Level of Assistance 1 Standby Assist Bed Mobility Comments 1 HOB elevated Transfer 1 Transfer From 1 Sit Transfer Type 1 To and from Transfer to 1 Stand Technique 1 Sit to stand;Stand to sit Transfer Device 1 Wheeled walker Transfer Level of Assistance 1 Distant supervision Trials/Comments 1 use fo UEs, cue sfor safety Ambulation 1 Distance (ft) 1 30 (30 ft x 4) Surface 1 Level tile Device 1 Wheeled walker Assistance 1 Standby Assist Gait: Requires verbal cues to 1 Use assistive device safely;Follow precautions/weight bearing status;Improve upright posture;Increase step length;Increase base of support;Pace activity;Utilize pursedlip breathing Gait Deviations 1 Base of support - decreased;Catarina - decreased;Posture - flexed;Stance time - decreased;Step length - decreased;Turns - difficulty Quality of Gait 1 cues for heel focused wt bearing, cues to prevent rocking forward onto forefoot with amb Ambulation 2 Distance (ft) 2 30 (30 ft x 4) Surface 2 Level tile Device 2 No device Assistance 2 Contact Guard Assist;Minimum Assist Gait: Requires assist with 2 Maintaining balance Gait: Requires verbal cues to 2 Follow precautions/weight bearing status;Pace activity;Utilize pursed lip breathing;Increase base of support Gait Deviations 2 Base of support - decreased;Catarina - decreased;Posture - flexed;Stance time - decreased;Step length - decreased;Turns - difficulty Quality of Gait 2 LOB x 2 with turns with min A to correct, cues for preventing rocking onto forefoot with swing phase of gait on L LE Stairs Stairs No Basic Mobility - 6 Click How much difficulty does the patient have: Turning over in bed 4 How much difficulty does the patient currently have: Sitting down and standing up from a chair witharms? 4 How much difficulty does the patient have: Moving from lying on back to sitting on the side of the bed? 4 How much difficulty does the patient have: Moving to and from a bed to a chair including wheelchair? 4 How much help does the patient currently need: Walk in hospital room? 3 How much help from another person does the patient currently need: Climbing 3-5 steps with a railing? 3 Total 6 Click Score (range 6-24) 22 Safe Environment End of Therapy Session Safe Environment End of Therapy Session Patient left in recliner;RN notified;Call light within reach;Bed in lowest position with wheels locked;Overbed table within reach;Bed rails up per protocol Assessment Prognosis Good Problem List Gait deviations;Decreased strength;Decreased range of motion;Decreased endurance;Impaired balance;Decreased mobility;Decreased safety awareness;Obesity;Decreased skin integrity;Pain;Edema;Orthopedic restrictions Barriers to Discharge Current Mobility Status;Decreased caregiver support;Decreased safety awareness Plan Plan Continue with current plan;If this is the last note, consider this the discharge summary Recommendation/Plan PT Recommendation/Plan Inpatient Rehab Facility (if declines, home with supervision and HHPT) Patient at high risk for Falls;Readmission;Injury due to decreased ability to care for self;Injury due to reduced functional status;Injury due to balance deficits;Injury at home as patient has not returned to prior level of function;Developing impaired skin integrity;Cognitive decline due to decreased social participation;Mismanagement of medications;Prolonged dependence for self care tasks Recommend Inpatient Rehab/Acute Rehab due to Ability to actively participate in intensive therapy 3hours/day, 5 days/week or 900 minutes per week;Highly motivated to participate in therapy;Not at baseline due to impaired ability to complete ADLs;Impaired ability to complete functional mobility;Likely to return to the community at discharge with support system in place;Requires greater than 25% physical assistance with most mobility tasks;Requires greater than 25% physical assistance with most ADL tasks;Requires multiple therapy disciplines to address functional deficits;Requires skilled therapy interventions to address neurological deficits PT Frequency during current admission 3-5x/wk Treatment/Interventions during current admission Balance Training;Bed mobility;Endurance training;Functional activity;Functional transfer training;Gait training;Neuromuscular re-education;Parent/caregiver training and education;Positioning;Range of motion;Stair training;Strengthening;Therapeutic activity;Therapeutic exercise;Transfer training Progress during current admission Progressing toward goals PT - Next Appointment 03/23/23 Multi-Disciplinary Problems (from Physical Therapy) Active Problems Problem: Mobility Start Date: 03/08/23 Goal Start Date Expected End Date End Date LTG - Patient will ambulate community distance 03/08/23 03/20/23 -- Goal Details: Without AD independently Goal Start Date Expected End Date End Date STG - Patient will ambulate 03/08/23 03/20/23 -- Goal Details: 150 feet with LRD independently Problem: Transfers Start Date: 03/08/23 Goal Start Date Expected End Date End Date STG - Patient to transfer to and from sit to supine 03/08/23 03/20/23 -- Goal Details: Independently Goal Start Date Expected End Date End Date STG - Patient will transfer sit to and from stand 03/08/23 03/20/23 -- Goal Details: Independently Problem: Orthotic Start Date: 03/08/23 Goal Start Date Expected End Date End Date STG - Patient and/or caregiver will perform home exercise program with the following level of assist: 03/08/23 03/20/23 -- Goal Details: Independently in order to maintain strength and improve ROM * Luis Daniel Hanna NP - 03/18/2023 1:03 PM CDT Daily Progress Note Division of Hospital Medicine Name: Rene Hyatt : 1980 Today's Date: March 18, 2023 Age: 42 y.o. male Admission: 03/06/2023 Bed: [place] [id number] LOS: 12 days Subjective Chief complaint: Perineal abscess Interval History Patient is alert and awake on eval this AM. He has no specific complaint or question. Chair has been delivered, ore charger assisting with acquisition of boot. Objective Scheduled Meds PRN Meds Infusions acetaminophen, 1,000 mg, oral, Q6H ASTON ampicillin-sulbactam, 3 g, intravenous, Q6H ASTON atorvastatin, 20 mg, oral, Nightly calcium carbonate, 500 mg of elemental calcium, oral, BID enoxaparin, 40 mg, subcutaneous, Q12H ASTON ergocalciferol, 50,000 Units, oral, Once per day on Mon Inna insulin glargine, 20 Units, subcutaneous, Nightly insulin lispro, 0-10 Units, subcutaneous, TID with meals insulin lispro, 0-5 Units, subcutaneous, Nightly insulin lispro, 12 Units, subcutaneous, TID with meals losartan, 25 mg, oral, Daily micafungin, 100 mg, intravenous, Q24H ASTON pantoprazole DR, 40 mg, oral, Daily dextrose, 15 g, oral, Q15 Min PRN OR dextrose, 250 mL, intravenous, Q15 Min PRN glucagon, 1 mg, intramuscular, Q30 Min PRN ondansetron, 4 mg, intravenous, Q4H PRN oxyCODONE, 5 mg, oral, Q4H PRN prochlorperazine, 5 mg, intravenous, Q6H PRN ramelteon, 8 mg, oral, Nightly PRN simethicone, 80 mg, oral, BID PRN white petrolatum-mineral oiL, , topical, BID PRN Vitals Most Recent Vitals: T 37 ??C (98.6 ??F), HR 78, BP 126/53, RR 16, SpO2 96 %. 24hr Min/Max: Temp Min: 36.6 ??C (97.9 ??F) Max: 37 ??C (98.6 ??F) Pulse Min: 78 Max: 87 BP Min: 126/53 Max: 145/81 Resp Min: 16 Max: 16 SpO2 Min: 93 % Max: 96 % Intake/Output Summary (Last 24 hours) at 03/18/2023 1303 Last data filed at 03/18/2023 0540 Gross per 24 hour Intake -- Output 1400 ml Net -1400 ml Physical Exam Constitutional: NAD, morbidly obese Eyes: EOMI, anicteric ENT: NCAT, moist mucus membranes, speech clear Lungs: unlabored, without audible wheeze Skin: No new rashes, lesions or bruises on visible skin Extremities: Normal without edema or cyanosis, lower extremity numbness / tingling, left foot wrapped in gauze with betadine stain Neurologic: AOx4, CNII-XII intact, normal strength Psychiatric: Normal affect I have reviewed the patient's vital signs. Lines, Drains, Airways Peripheral IV 03/06/23 20 G Right Antecubital (Active) Closed/Suction/Open Drain 1 Perineal Bulb 19 Fr. (Active) Urethral Catheter Straight-tip;Non-latex (Active) Labs/Diagnostic Review Na 139 Cl 101 BUN 13 K 3.9 CO2 29 Cr 0.82 Mg -, G AST 23 ALT 11 Alk Phos 68 Ca 8.7 TP - Alb 3.0 Total Bili: 0.2 Direct Bili: <0.2 \ Hgb 10.0 / WBC 9.1 -------- Plt 235 / MCV 84.3 \ INR - (Labs above are the most recent result obtained in the last 24 hours. For additional labs/trends, see Epic.) I have reviewed the laboratory results. Imaging Review No results found. 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 PT denies SIRS. With neutrophilic leukocytosis and elevated inflammatory markers. CTAP w contrast w/ scrotal soft tissue thickening and subQ fluid / air suggesting abscess. S/p OR 03/06 with urology and ACCS for I&D of abscess and debridement. No tracking to rectum. S/p wound vac placement with urology. 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 Op cultures 03/06 growing strep anginosus [...] Op culture 03/10 growing mixed organisms and destiny glabrata susceptibility to fluconazole - continue Unasyn (03/09-), Micafungin 100 mg IV (03/15-) > Plan for 14d (End date 03/28) > Maytransition to Augmentin 875/125 BID and Fluconazole 800mg every day at discharge. - Urology will remove drain when patient is ready for discharge however he may be here longer than they anticipate - OOBTC daily, chair ordered - plan to remove min when he can sit in recliner, his anatomy is not conducive to use of condom cath, nor successful use of urinal in bed Class 3 obesity ([facility]) Assessment & Plan Complicates all aspects of care. - Perform STOP BANG > At least intermediate risk > Amb ref pulm vs sleep - Eval for bariatric surgery, GLP-RA would be appropriate Adjustment disorder Assessment & Plan PHQ-4 with likely depression, symptoms are new [...] mother is a major motivator for patient Hypertension Assessment & Plan Blood pressure modestly elevated. - elect DEBBI/ARB in DM (ACR 44) > start losartan 25 Anemia Assessment & Plan Hgb 11.2 and BL 10-11. No signs of bleeding -CTM Hgb Diabetic foot ulcer (CMS/HCC) ([facility]) Assessment & Plan Wound to planter 1st metatarsal head. S/p debridement with podiatry 03/07, significant depth but negative probe to bone. L foot XR with no OM - continue daily dressing changes - WBAT in heel strike shoe per PT - follow up in wound center at discharge - diabetic shoes with custom offloading inserts for basketballs and footballs reverser sheogear - Heel strike shoe is causing the patient difficulty walking, collaborating with PT, nursing, DM re: solutions - collab w/ PT, ordered shoe for right foot to assist with balance / walking Vitamin D deficiency Assessment & Plan Undetectable Vit D Level - continue vit d 50k international units twice weekly and calcium supplementation for x3 months. - plan for vit d 2k daily after 50k loading phase - f/u with PCP T1DM (type 1 diabetes mellitus) ([facility]) Assessment & Plan Endocrinology following and currently on basal bolus regimen. Insulin Ab, IA-2 Ab, ZNT8 Ab neg, GAD65 0.31 (<0.02) - cont lantus, lispro per endocrinology recs - continue atorvastatin 20 mg daily - patient seen by DM educator - If HTN, elect DEBBI/ARB (ACR 44) > see HTN. Code status : Full Code Diet : Adult Diet Restricted; Consistent Carbohydrate PT/OT Dispo Rec : PT Recommendation/Plan: Inpatient Rehab Facility / OT Recommendation: Inpatient Rehab Facility Supplementary Attestation Today, I am treating the patient for perineal abscess with mixed infection which is in severe exacerbation, progression, or experiencing treatment side effects as evidenced by treatment failure associated with yamila gangrene, sepsis, shock, , as described in the note. Reviewed records from the following unique sources (external institutions or providers from different services): ID, Endo. Luis Daniel Hanna NP Cosigned by Evy Chong MD at 03/18/2023 1:21 PM CDT Associated attestation - Evy Chong MD - 03/18/2023 1:21 PM CDT I have seen and examined the patient on 03/18/23 in conjunction with the non- physician provider. * Luis Daniel Hanna NP - 03/17/2023 12:11 PM CDT Daily Progress Note Division of Hospital Medicine Name: Rene Hyatt : 1980 Today's Date: March 17, 2023 Age: 42 y.o. male Admission: 03/06/2023 Bed: [place] [id number] LOS: 11 days Subjective Chief complaint: Perineal infection Interval History Patient is alert and awake on eval this AM. He has no specific complaint or question. Denies angina, dyspnea, pain. Describes desire to exit bed, sit in chair, ordered recliner. Appears motivated to leave hospital to provide care to mother. Mood improved. Objective Scheduled Meds PRN Meds Infusions acetaminophen, 1,000 mg, oral, Q6H ASTON ampicillin-sulbactam, 3 g, intravenous, Q6H ASTON atorvastatin, 20 mg, oral, Nightly calcium carbonate, 500 mg of elemental calcium, oral, BID enoxaparin, 40 mg, subcutaneous, Q12H ASTON ergocalciferol, 50,000 Units, oral, Once per day on Mon Inna insulin glargine, 20 Units, subcutaneous, Nightly insulin lispro, 0-10 Units, subcutaneous, TID with meals insulin lispro, 0-5 Units, subcutaneous, Nightly insulin lispro, 12 Units, subcutaneous, TID with meals losartan, 25 mg, oral, Daily micafungin, 100 mg, intravenous, Q24H ASTON pantoprazole DR, 40 mg, oral, Daily dextrose, 15 g, oral, Q15 Min PRN OR dextrose, 250 mL, intravenous, Q15 Min PRN glucagon, 1 mg, intramuscular, Q30 Min PRN ondansetron, 4 mg, intravenous, Q4H PRN oxyCODONE, 5 mg, oral, Q4H PRN prochlorperazine, 5 mg, intravenous, Q6H PRN ramelteon, 8 mg, oral, Nightly PRN simethicone, 80 mg, oral, BID PRN white petrolatum-mineral oiL, , topical, BID PRN Vitals Most Recent Vitals: T 36.9 ??C (98.4 ??F), HR 79, BP 136/65, RR 16, SpO2 93 %. 24hr Min/Max: Temp Min: 36.8 ??C (98.2 ??F) Max: 37.1 ??C (98.8 ??F) Pulse Min: 79 Max: 87 BP Min: 133/55 Max: 145/75 Resp Min: 16 Max: 16 SpO2 Min: 93 % Max: 95 % Intake/Output Summary (Last 24 hours) at 03/17/2023 1231 Last data filed at 03/17/2023 0550 Gross per 24 hour Intake -- Output 2230 ml Net -2230 ml Physical Exam Constitutional: NAD, morbidly obese Eyes: PERRL, EOMI, anicteric ENT: NCAT, moist mucus membranes, speech clear Lungs: unlabored, without audible wheeze Cardiovascular: RRR Skin: No new rashes, lesions or bruises on visible skin Extremities: Normal without edema or cyanosis, lower extremity numbness / tingling, left foot wrapped in gauze with betadine stain Neurologic: AOx4, CNII-XII intact, normal strength Psychiatric: Flat, depressed mood I have reviewed the patient's vital signs. Lines, Drains, Airways Peripheral IV 03/06/23 20 G Right Antecubital (Active) Closed/Suction/Open Drain 1 Perineal Bulb 19 Fr. (Active) Urethral Catheter Straight-tip;Non-latex (Active) Labs/Diagnostic Review Na 139 Cl 101 BUN 8 K 4.2 CO2 29 Cr 0.92 Mg -, G AST - ALT - Alk Phos - Ca 8.6 TP - Alb - Total Bili: - Direct Bili: - \ Hgb 10.1 / WBC 10.0 -------- Plt 244 / MCV 82.4 \ INR - (Labs above are the most recent result obtained in the last 24 hours. For additional labs/trends, see Epic.) I have reviewed the laboratory results. Imaging Review No results found. 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 PT denies SIRS. With neutrophilic leukocytosis and elevated inflammatory markers. CTAP w contrast w/ scrotal soft tissue thickening and subQ fluid / air suggesting abscess. S/p OR 03/06 with urology and ACCS for I&D of abscess and debridement. No tracking to rectum. S/p wound vac placement with urology. 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 Op cultures 03/06 growing strep anginosus [...] Op culture 03/10 growing mixed organisms and destiny glabrata susceptibility to fluconazole - continue Unasyn (03/09-), Micafungin 100 mg IV (03/15-) > Plan for 14d (End date 03/28) > Maytransition to Augmentin 875/125 BID and Fluconazole 800mg every day at discharge. - Urology will remove drain when patient is ready for discharge however he may be here longer than they anticipate - OOBTC daily, chair ordered - plan to remove min when he can sit in recliner, his anatomy is not conducive to use of condom cath, nor successful use of urinal in bed Class 3 obesity ([facility]) Assessment & Plan Complicates all aspects of care. - Perform STOP BANG - Eval for bariatric surgery, GLP-RA would be appropriate Adjustment disorder Assessment & Plan PHQ-4 with likely depression, symptoms are new [...] mother is a major motivator for patient Hypertension Assessment & Plan Blood pressure modestly elevated, albeit he is acutely ill. - acr pending > consider ARB>DEBBI Anemia Assessment & Plan Hgb 11.2 and BL 10-11. No signs of bleeding -CTM Hgb Diabetic foot ulcer ([facility]) ([facility]) Assessment & Plan Wound to planter 1st metatarsal head. S/p debridement with podiatry 03/07, significant depth but negative probe to bone. L foot XR with no OM - continue daily dressing changes - WBAT in heel strike shoe per PT - follow up in wound center at discharge - diabetic shoes with custom offloading inserts for alf sheogear - Heel strike shoe is causing the patient difficulty walking, collaborating with PT, nursing, DM re: solutions Vitamin D deficiency Assessment & Plan Undetectable Vit D Level - continue vit d 50k international units twice weekly and calcium supplementation for x3 months. - plan for vit d 2k daily after 50k loading phase - f/u with PCP T1DM (type 1 diabetes mellitus) ([facility]) Assessment & Plan Endocrinology following and currently on basal bolus regimen. Insulin Ab, IA-2 Ab, ZNT8 Ab neg, GAD65 0.31 (<0.02) - cont lantus, lispro per endocrinology recs - continue atorvastatin 20 mg daily - patient seen by DM educator - If HTN, elect DEBBI/ARB (ACR 44) > start losartan 25 Code status : Full Code Diet : Adult Diet Restricted; Consistent Carbohydrate PT/OT Dispo Rec : PT Recommendation/Plan: Inpatient Rehab Facility / OT Recommendation: Inpatient Rehab Facility Supplementary Attestation Today, I am treating the patient for perineal infection which is in severe exacerbation, progression, or experiencing treatment side effects as evidenced by IV antibiotic requirement, surgical intervention, with risk of progression to life threatening yamila's gangrene, as described in the note. Reviewed records from the following unique sources (external institutions or providers from different services): urology, ID. Luis Daniel Hanna NP Cosigned by Evy Chong MD at 03/17/2023 12:50 PM CDT * Riya Madison, PT - 03/17/2023 9:07 AM CDT Physical Therapy Progress Note NOTE: This is a summary note of the elizabeth components of the treatment session. For full details, review chart for all flowsheets documented on by this physical therapy clinician on this date. Vital signs documented in vital signs flowsheet. Care plan progress documented in Care Plan Activity. For questions, please review the treatment team and contact the PT or [employer] ASSEMBLER currently assigned to this patient. If a physical therapy clinician is not assigned to this patient, please call [phone]. 03/17/23 0907 PT Last Visit Session Type Treatment PT Received On 03/17/23 Safe Environment Arm band checked;Patient found in supine;Gait belt not utilized, see comment (inadequate fit) Subjective Agreeable to Therapy Family/Caregiver Present No Precautions Precautions Fall risk;Drains Weight Bearing Restrictions Yes LLE Weight Bearing WBAT (With heel strike shoe donned) Braces/Orthoses Heel strike shoe (Donned on L foot) Activity Tolerance Activity Tolerance Comments Erick: somewhat hard Pain Assessment Pain Assessment 0-10 Pain Score 0 - No pain Cognition Arousal/Alertness Alert;Appropriate responses to stimuli Orientation Oriented X4 (person, place, time, situation) Following Commands Follows all commands and directions without difficulty Safety Judgment Good awareness of safety precautions Compliance/Behavior Easy to engage Balance Balance Yes Static Sitting Balance Static Sitting-Balance Support Feet supported;No upper extremity supported Static Sitting-Sitting Surface Bed Static Sitting-Level of Assistance Distant supervision Static Sitting-Comment/# of Minutes For safety Static Standing Balance Static Standing-Balance Support No upper extremity supported Static Standing-Standing Surface Floor Static Standing-Level of Assistance Contact guard Static Standing-Comment/# of Minutes CGA for safety and balance Bed Mobility Bed Mobility Yes Bed Mobility 1 Bed Mobility From 1 Supine Bed Mobility Type 1 To and from Bed Mobility to 1 Edge of bed Level of Assistance 1 Standby Assist Bed Mobility Comments 1 HOB elevated, SBA for safety Transfers Transfer Yes Transfer 1 Transfer From 1 Sit Transfer Type 1 To and from Transfer to 1 Stand Technique 1 Sit to stand;Stand to sit Transfer Device 1 Wheeled walker Transfer Level of Assistance 1 Standby Assist Trials/Comments 1 Use of B UE for force production and controlled descent, SBA for safety Ambulation Ambulation Yes Ambulation 1 Distance (ft) 1 50 Surface 1 Level tile Device 1 Wheeled walker Assistance 1 Standby Assist Gait: Requires verbal cues to 1 Use assistive device safely;Pace activity;Improve upright posture;Utilize appropriate gait sequencing Gait Deviations 1 Base of support - decreased;Antalgic;Step length - decreased;Weight bearing through UE???s - increased Ambulation 2 Distance (ft) 2 25 Surface 2 Level tile Device 2 No device Assistance 2 Contact Guard Assist Gait: Requires assist with 2 Maintaining balance Gait: Requires verbal cues to 2 Pace activity;Utilize appropriate gait sequencing;Follow precautions/weight bearing status Gait Deviations 2 Base of support - decreased;Catarina - decreased;Posture - flexed;Step length - decreased Ambulation Comments 2 x1 LOB with Min A to correct. Pt reports decreased stability with heel strikeshoe donned and no use of WW. Other Comments Other PT Comments Pt reports increased frustration about use of heel strike shoe stating that it makes him feel less independent and worries him about how he is going to care for his mother after discharge. Pt is very motivated to get stronger and would benefit from continued skilled therapy in order to further improve his overall mobility in order to resume his caretaking role for his mother. Basic Mobility - 6 Click How much difficulty does the patient have: Turning over in bed 3 How much difficulty does the patient currently have: Sitting down and standing up from a chair witharms? 3 How much difficulty does the patient have: Moving from lying on back to sitting on the side of the bed? 3 How much difficulty does the patient have: Moving to and from a bed to a chair including wheelchair? 3 How much help does the patient currently need: Walk in hospital room? 3 How much help from another person does the patient currently need: Climbing 3-5 steps with a railing? 3 Total 6 Click Score (range 6-24) 18 Score Interpretation 41.05 Safe Environment End of Therapy Session Safe Environment End of Therapy Session Patient left supine in bed;Overbed table within reach;Call light within reach Assessment Prognosis Good Problem List Gait deviations;Decreased strength;Decreased endurance;Impaired balance;Decreased mobility Barriers to Discharge Current Mobility Status Plan Plan Continue with current plan;If this is the last note, consider this the discharge summary Recommendation/Plan PT Recommendation/Plan Inpatient Rehab Facility Patient at high risk for Falls;Readmission;Injury due to decreased ability to care for self;Injury due to reduced functional status;Injury due to balance deficits Recommend Inpatient Rehab/Acute Rehab due to Ability to actively participate in intensive therapy 3hours/day, 5 days/week or 900 minutes per week;Highly motivated to participate in therapy;Impaired ability to complete functional mobility;Requires multiple therapy disciplines to address functional deficits PT Frequency during current admission 3-5x/wk Treatment/Interventions during current admission Balance Training;Bed mobility;Endurance training;Gait training;Neuromuscular re-education;Transfer training;Therapeutic exercise;Therapeutic activity;Strengthening;Stair training Progress during current admission Progressing toward goals PT - Next Appointment 03/19/23 Multi-Disciplinary Problems (from Physical Therapy) Active Problems Problem: Mobility Start Date: 03/08/23 Goal Start Date Expected End Date End Date LTG - Patient will ambulate community distance 03/08/23 03/20/23 -- Goal Details: Without AD independently Goal Start Date Expected End Date End Date STG - Patient will ambulate 03/08/23 03/20/23 -- Goal Details: 150 feet with LRD independently Problem: Transfers Start Date: 03/08/23 Goal Start Date Expected End Date End Date STG - Patient to transfer to and from sit to supine 03/08/23 03/20/23 -- Goal Details: Independently Goal Start Date Expected End Date End Date STG - Patient will transfer sit to and from stand 03/08/23 03/20/23 -- Goal Details: Independently Problem: Orthotic Start Date: 03/08/23 Goal Start Date Expected End Date End Date STG - Patient and/or caregiver will perform home exercise program with the following level of assist: 03/08/23 03/20/23 -- Goal Details: Independently in order to maintain strength and improve ROM * Luis Daniel Hanna, TEJINDER - 03/16/2023 1:10 PM CDT Daily Progress Note Division of Hospital Medicine Name: Rene Hyatt : 1980 Today's Date: March 16, 2023 Age: 42 y.o. male Admission: 03/06/2023 Bed: [id number] LOS: 10 days Subjective Chief complaint: Perineal abscess Interval History Patient is alert and awake on eval this AM. He endorses back pain from laying in bed, frustration with attempting to ambulate in boot, feeling down depressed and hopeless every day since this event without suicidal ideation, frustrated with difficulty contacting his mother due to technological barriers. Denies difficulty with bowel, bladder, angina. Suspect adjustment disorder, and patient seemed somewhat responsive to reassurance that this will pass, continue to follow this. Minimal sanguinous output from drain, urology will remove prior to discharge. Objective Scheduled Meds PRN Meds Infusions acetaminophen, 1,000 mg, oral, Q6H ASTON ampicillin-sulbactam, 3 g, intravenous, Q6H ASTON atorvastatin, 20 mg, oral, Nightly calcium carbonate, 500 mg of elemental calcium, oral, BID enoxaparin, 40 mg, subcutaneous, Q12H [facility] ergocalciferol, 50,000 Units, oral, Once per day on Mon Inna insulin glargine, 20 Units, subcutaneous, Nightly insulin lispro, 0-10 Units, subcutaneous, TID with meals insulin lispro, 0-5 Units, subcutaneous, Nightly insulin lispro, 12 Units, subcutaneous, TID with meals micafungin, 100 mg, intravenous, Q24H ASTON pantoprazole DR, 40 mg, oral, Daily dextrose, 15 g, oral, Q15 Min PRN OR dextrose, 250 mL, intravenous, Q15 Min PRN glucagon, 1 mg, intramuscular, Q30 Min PRN ondansetron, 4 mg, intravenous, Q4H PRN oxyCODONE, 5 mg, oral, Q4H PRN prochlorperazine, 5 mg, intravenous, Q6H PRN simethicone, 80 mg, oral, BID PRN white petrolatum-mineral oiL, , topical, BID PRN Vitals Most Recent Vitals: T 36.8 ??C (98.2 ??F), HR 89, BP 155/80, RR 16, SpO2 92 %. 24hr Min/Max: Temp Min: 36.5 ??C (97.7 ??F) Max: 37 ??C (98.6 ??F) Pulse Min: 83 Max: 89 BP Min: 129/69 Max: 155/80 Resp Min: 16 Max: 16 SpO2 Min: 92 % Max: 95 % Intake/Output Summary (Last 24 hours) at 03/16/2023 1330 Last data filed at 03/16/2023 0925 Gross per 24 hour Intake -- Output 2535 ml Net -2535 ml Physical Exam Constitutional: NAD, morbidly obese Eyes: PERRL, EOMI, anicteric ENT: NCAT, moist mucus membranes, speech clear Lungs: Clear to auscultation in all lung gonsalez, unlabored Cardiovascular: RRR GI: Soft, non-tender, bowel sounds + Skin: No new rashes, lesions or bruises on visible skin Extremities: Normal without edema or cyanosis, lower extremity numbness / tingling Neurologic: AOx4, CNII-XII intact, normal strength Psychiatric: Flat, depressed mood I have reviewed the patient's vital signs. Lines, Drains, Airways Peripheral IV 03/06/23 20 G Right Antecubital (Active) Peripheral IV 03/08/23 20 G Anterior;Distal;Right Forearm (Active) Peripheral IV 03/12/23 18 G Left Hand (Active) Closed/Suction/Open Drain 1 Perineal Bulb 19 Fr. (Active) Urethral Catheter Straight-tip;Non-latex (Active) Labs/Diagnostic Review Na 138 Cl 102 BUN 9 K 4.2 CO2 28 Cr 0.83 Mg -, G AST - ALT - Alk Phos - Ca 8.5 TP - Alb - Total Bili: - Direct Bili: - \ Hgb 9.9 / WBC 8.5 -------- Plt 214 / MCV 83.1 \ INR - (Labs above are the most recent result obtained in the last 24 hours. For additional labs/trends, see Epic.) I have reviewed the laboratory results. Imaging Review No results found. 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 PT denies SIRS. With neutrophilic leukocytosis and elevated inflammatory markers. CTAP w contrast w/ scrotal soft tissue thickening and subQ fluid / air suggesting abscess. S/p OR 03/06 with urology and ACCS for I&D of abscess and debridement. No tracking to rectum. S/p wound vac placement with urology. 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 Op cultures 03/06 growing strep anginosus [...] Op culture 03/10 growing mixed organisms and destiny glabrata, susceptibility pending. - continue Unasyn (03/09-), Micafungin 100 mg IV () - Urology will remove drain when patient is ready for discharge however he may be here longer than they anticipate Class 3 obesity (HCC) Assessment & Plan Complicates all aspects of care. - Perform STOP BANG - Eval for bariatric surgery, GLP-RA would be appropriate Adjustment disorder Assessment & Plan PHQ-4 with likely depression, symptoms are new in onset since dramatic change in health status, separation from family. Denies history of having thoughts about hurting himself, denies having a plan to hurt himself. - discuss diagnosis - provide reassurance - eval for SI as indicated Hypertension Assessment & Plan Blood pressure modestly elevated, albeit he is acutely ill. - acr pending > consider ARB>DEBBI Anemia Assessment & Plan Hgb 11.2 and BL 10-11. No signs of bleeding -CTM Hgb Diabetic foot ulcer (CMS/HCC) ([facility]) Assessment & Plan Wound to planter 1st metatarsal head. S/p debridement with podiatry 03/07, significant depth but negative probe to bone. L foot XR with no OM - continue daily dressing changes - WBAT in heel strike shoe per PT - follow up in wound center at discharge - diabetic shoes with custom offloading inserts for basketballs and footballs reverser sheogear Vitamin D deficiency Assessment & Plan Undetectable Vit D Level - continue vit d 50k international units twice weekly and calcium supplementation for x3 months. - plan for vit d 2k daily after 50k loading phase - f/u with PCP Diabetes mellitus, new onset (CMS/HCC) ([facility]) Assessment & Plan Endocrinology following and currently on basal bolus regimen - cont lantus, lispro per endocrinology recs - continue atorvastatin 20 mg daily - patient seen by DM educator - If HTN, elect DEBBI/ARB Code status : Full Code Diet : Adult Diet Restricted; Consistent Carbohydrate PT/OT Dispo Rec : PT Recommendation/Plan: Inpatient Rehab Facility / OT Recommendation: Inpatient Rehab Facility Supplementary Attestation Today, I am treating the patient for perineal abscess which is in severe exacerbation, progression,or experiencing treatment side effects as evidenced by untreated may result in life threatening yamila's gangrene, as described in the note. Discussed management of min / drain with urology. Reviewed records from the following unique sources (external institutions or providers from different services): Urology / ID. Luis Daniel Hanna NP Cosigned by Neno Lei MD at 03/16/2023 3:29 PM CDT Associated attestation - Neno Lei MD - 03/16/2023 3:29 PM CDT I have seen and examined the patient on 03/16/23. I agree with the findings and plan of care. * File, Vianey Mcduffie NP - 03/16/2023 12:21 PM CDT Urology Progress Note Rene Hyatt : 1980 Subjective 42 year old male with perineal/scrotal pain and swelling transferred from [facility] with concern for Yamila's gangrene. He was taken to OR on 03/06, 03/07, 03/10 for debridement and closed on 03/12. Interval History: Patient without complaints currently. Incision on scrotum well approximated and without redness, drainage. Area soft and non tender. WBC from 03/15 8.5. Objective Lab Results Component Value Date CREATININE 0.83 03/15/2023 CREATININE 0.72 (L) 03/14/2023 CREATININE 0.71 (L) 03/13/2023 WBC 8.5 03/15/2023 WBC 9.7 03/14/2023 WBC 8.7 03/13/2023 HGB 9.9 (L) 03/15/2023 HGB 10.9 (L) 03/14/2023 HGB 10.4 (L) 03/13/2023 RBCU 6-10 (A) 03/06/2023 WBCU 0-5 03/06/2023 NITRITEU Negative 03/06/2023 Recent Vitals(24hr Range): Vitals: 03/15/23 1510 03/15/23 1925 03/16/23 0305 03/16/23 0910 BP: 129/67 129/63 129/69 155/80 BP Location: Right arm Right arm Right arm Patient Position: HOB 30 degrees HOB 30 degrees Pulse: 86 87 83 89 Resp: 16 16 16 16 Temp: 36.5 ??C (97.7 ??F) 37 ??C (98.6 ??F) 36.8 ??C (98.3 ??F) 36.8 ??C (98.2 ??F) TempSrc: Axillary Oral Oral SpO2: 95% 93% 92% 92% Weight: Height: I and Os: I/O last 3 completed shifts: In: 680 [P.O.:680] Out: 4877 [Urine:4775; Drains:102] I/O this shift: In: - Out: 750 [Urine:750] Physical Exam: Constitutional: No distress Resp: Non labored CVS: Warm, well perfused Abdomen: Soft, non distended Genitourinary: min with clear yellow urine, incision well approximated, no surrounding redness orinduration, drain ssg Neuro: Alert and oriented Assessment Rene Hyatt is a 42 y.o. male s/p Procedure(s): DEBRIDEMENT PERINEAL WOUND COMPLEX WOUND CLOSURE Plan -Incision healing well, continue to monitor. -Call urology when ready for discharge so CHELITA drain can be removed. - If there is drainage from the wound, change dressing as BID or as needed when soiled. If no drainage, can be uncovered or have a dressing at his preference Please do not hesitate to contact the urology team with any questions or concerns. Cosigned by Desiree Velasco MD at 03/16/2023 4:41 PM CDT Associated attestation - Desiree Velasco MD - 03/16/2023 4:41 PM CDT I have seen and examined the patient on 03/16/23. I agree with the findings and plan of care as documented in the resident's/fellow's note.. * Josephine Chavez PA - 03/15/2023 10:48 AM CDT Daily Progress Note Division of Hospital Medicine Name: Rene Hyatt : 1980 Today's Date: March 15, 2023 Age: 42 y.o. male Admission: 03/06/2023 Bed: [id number] LOS: 9 days Subjective Chief complaint: Perineal abscess Interval History Patient states he is feeling okay today, wants to work with therapy more. He is interested in goingto inpatient rehab if we can get medicaid arranged. Overall he is feeling well, denies any pain. Having bowel movements. - CHELITA drain output 42ml yesterday - Discussed with ID. Start Micafungin 100 mg IV daily - BG stable Objective Scheduled Meds PRN Meds Infusions acetaminophen, 1,000 mg, oral, Q6H ASTON ampicillin-sulbactam, 3 g, intravenous, Q6H ASTON atorvastatin, 20 mg, oral, Nightly calcium carbonate, 400 mg of elemental calcium, oral, Daily enoxaparin, 40 mg, subcutaneous, Q12H ASTON [START ON 03/16/2023] ergocalciferol, 50,000 Units, oral, Once per day on Mon Inna insulin glargine, 20 Units, subcutaneous, Nightly insulin lispro, 0-10 Units, subcutaneous, TID with meals insulin lispro, 0-5 Units, subcutaneous, Nightly insulin lispro, 10 Units, subcutaneous, TID with meals micafungin, 100 mg, intravenous, Q24H ASTON dextrose, 15 g, oral, Q15 Min PRN OR dextrose, 250 mL, intravenous, Q15 Min PRN glucagon, 1 mg, intramuscular, Q30 Min PRN ondansetron, 4 mg, intravenous, Q4H PRN oxyCODONE, 5 mg, oral, Q4H PRN prochlorperazine, 5 mg, intravenous, Q6H PRN simethicone, 80 mg, oral, BID PRN white petrolatum-mineral oiL, , topical, BID PRN Vitals Most Recent Vitals: T 36.6 ??C (97.8 ??F), HR 87, BP 153/67, RR 18, SpO2 93 %. 24hr Min/Max: Temp Min: 36.6 ??C (97.8 ??F) Max: 36.8 ??C (98.3 ??F) Pulse Min: 87 Max: 96 BP Min: 136/62 Max: 153/67 Resp Min: 16 Max: 18 SpO2 Min: 93 % Max: 97 % Intake/Output Summary (Last 24 hours) at 03/15/2023 1421 Last data filed at 03/15/2023 1015 Gross per 24 hour Intake 680 ml Output 3892 ml Net -3212 ml Physical Exam Vitals reviewed. HENT: Head: Normocephalic. Mouth/Throat: Mouth: Mucous membranes are moist. Eyes: Extraocular Movements: Extraocular movements intact. Cardiovascular: Rate and Rhythm: Normal rate and regular rhythm. Pulmonary: Effort: Pulmonary effort is normal. Breath sounds: Normal breath sounds. Abdominal: General: Bowel sounds are normal. Palpations: Abdomen is soft. Genitourinary: Comments: Drain intact to scrotum, serosanguinous fluid in bulb Musculoskeletal: Comments: Dressing intact to L foot Bilateral feet with hyperkeratosis Skin: General: Skin is warm and dry. Neurological: General: No focal deficit present. Mental Status: He is alert and oriented to person, place, and time. Psychiatric: Mood and Affect: Mood normal. Behavior: Behavior normal. Thought Content: Thought content normal. Lines, Drains, Airways Peripheral IV 03/06/23 20 G Right Antecubital (Active) Peripheral IV 03/08/23 20 G Anterior;Distal;Right Forearm (Active) Peripheral IV 03/12/23 18 G Left Hand (Active) Closed/Suction/Open Drain 1 Perineal Bulb 19 Fr. (Active) Urethral Catheter Straight-tip;Non-latex (Active) Labs/Diagnostic Review Na 139 Cl 100 BUN 5 K 4.0 CO2 30 Cr 0.72 Mg -, G AST - ALT - Alk Phos - Ca 8.8 TP - Alb - Total Bili: - Direct Bili: - \ Hgb 10.9 / WBC 9.7 -------- Plt 228 / MCV 83.8 \ INR - (Labs above are the most recent result obtained in the last 24 hours. For additional labs/trends, see Epic.) I have reviewed the laboratory results. Imaging Review XR Wrist Left 3 or More Views Result Date: 03/13/2023 No left wrist fracture. Electronically signed by: Juan Jeter MD I have independently reviewed and interpreted labs. 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 Denied systemic symptoms on admission, noted to have leukocytosis with PMN predom and elevated inflammatory markers. CTAP w contrast: extensive soft tissue thickening throughout the scrotum extending towards the peroneal surface posteriorly, 7.5 cm subcutaneous fluid collection with air collections suggesting abscess, LN along iliac deanne chians and inguinal regions. S/p OR 03/06 with urology and ACCS for I&D of abscess and debridement. No tracking to rectum. S/p wound vac placement with urology. 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 Op cultures 03/06 growing strep anginosus and mixed organisms. ID consulted and recommend treatment with unasyn. Plan: - Bcx NGTD - Urology following - s/p OR 03/12 with urology with debridement of wound, wound closure and drain placed - wound care recs: if drainage change dressing BID or PRN. If no drainage can be uncovered or have dressing as pt preference - continue Unasyn (03/09-) - Op culture 03/10 growing mixed organisms and destiny glabrata, susceptibility pending. - start Micafungin 100 mg IV daily (03/15-) Diabetes mellitus, new onset (CMS/HCC) ([facility]) Assessment & Plan Endocrinology following and currently on basal bolus regimen - cont lantus 20, lispro 10 per endocrinology recs - continue atorvastatin 20 mg daily - patient seen by DM educator Anemia Assessment & Plan Hgb 11.2 and BL 10-11. No signs of bleeding -CTM Hgb Diabetic foot ulcer (CMS/HCC) ([facility]) Assessment & Plan Woun d to planter 1st metatarsal head. S/p debridement with podiatry 03/07, significant depth but negative probe to bone. L foot XR with no OM - continue daily dressing changes - WBAT in heel strike shoe per PT - follow up in wound center at discharge - diabetic shoes with custom offloading inserts for alf sheogear Vitamin D deficiency Assessment & Plan Undetectable Vit D Level -continue 5k units weekly x3 months. Will then have to be transitioned to low dose vit d Code status : Full Code Diet : Adult Diet Restricted; Consistent Carbohydrate PT/OT Dispo Rec : PT Recommendation/Plan: Inpatient Rehab Facility / OT Recommendation: Inpatient Rehab Facility Supplementary Attestation Today, I am treating the patient for scrotal abscess which is in moderate exacerbation, progression, or experiencing treatment side effects as evidenced by c/f Yamila's gangrene, s/p OR with urology, as described in the note. Reviewed records from the following unique sources (external institutions or providers from different services): ID . Discussed management of candidal infection with IDELLA Matt Cosigned by Neno Lei MD at 03/15/2023 2:50 PM CDT Associated attestation - Neno Lei MD - 03/15/2023 2:50 PM CDT I have seen and examined the patient on 03/15/23. I agree with the findings and plan of care. * Rona Reid, OT - 03/14/2023 3:04 PM CDT Occupational Therapy Occupational Therapy Initial Assessment NOTE:This is a summary note for the elizabeth assessments completed during the evaluation session. For full details, review chart review for all flowsheets documented on by this Occupational Therapist on this date. Vital signs documented in vital signs flowsheet. Assessment Assessment Problem List: Decreased endurance, Decreased balance, Decreased functional mobility, Decreased ADL independence, Decreased IADL independence, Decreased frequency/variety of movement, Scarring, Skin integrity Barriers to Discharge: Current Mobility Status, Decreased caregiver support Plan Plan Plan: Plan of care initiated, If this is the last note, consider this the discharge summary OT Recommendation and Plan Recommendation/Plan OT Recommendation: Inpatient Rehab Facility Patient at high risk for: Falls, Injury due to decreased ability to care for self, Injury due to reduced functional status, Injury due to balance deficits, Injury at home as patient has not returned to prior level of function, Developing impaired skin integrity Recommend Inpatient Rehab/Acute Rehab due to: Ability to actively participate in intensive therapy 3 hours/day, 5 days/week or 900 minutes per week, Highly motivated to participate in therapy, Not atbaseline due to impaired ability to complete ADLs, Impaired ability to complete functional mobility, Likely to return to the community at discharge with support system in place, Requires greater than25% physical assistance with most mobility tasks, Requires greater than 25% physical assistance with most ADL tasks, Requires multiple therapy disciplines to address functional deficits OT Frequency during current admission: 3-5x/wk Comments: Patient is very motivated & receptive to feedback during session. Patient with multiple LOB during functional mobility requiring assist to correct. Treatment/Interventions during current admission: ADL/IADL retraining, Balance Training, Bed mobility, Compensatory technique education, Endurance training, Functional activity, Functional mobility training, Functional transfer training, Therapeutic activity, Therapeutic exercise, Transfer training OT - Next Appointment: 03/16/23 OT Evaluation Complete: Yes General Information General Chart Reviewed: Yes Session Type: Evaluation OT Received On: 03/14/23 Safe Environment: Arm band checked, Patient found in supine, Gait belt utilized for all out of bed mobility Subjective: Agreeable to Therapy Family/Caregiver Present: No Occupational Therapy-Patient Goal: to get home safely Precautions Precautions Precautions: Fall risk Weight Bearing Restrictions: Yes LLE Weight Bearing: As tolerated (in heel strike shoe) Braces/Orthoses: Heel strike shoe Precaution Comments: reviewed safety precautions prior to mobility Home Living Home Living Type of Home: House Home Layout: Multi-level, Able to live on main level with bedroom/bathroom Home Access: Ramped entrance Bathroom Shower/Tub: Tub/shower unit Bathroom Toilet: Standard Bathroom Equipment: Grab bars in shower/tub Home Mobility Equipment-Available: None Home Mobility Equipment-Currently Using: None Prior Function Prior Function Level of [place]: Independent with ADLs, Independent functional transfers, Independent with ambulation, Independent with homemaking with ambulation Lives With: Mother (mother is paralyzed from abdomen down 2/2 MS; pt is mother's caregiver) Receives Help From: Other (Comment) (none) Driving: Yes ADL Assistance: Independent Instrumental ADL (IADL) Assistance: Independent Vocational/Occupation: Unemployed Fall within the last 6 months: Yes Fall within the last 6 months comment: pt reports 1 fall 2/2 syncopal episode Activities of Daily Living Grooming Grooming: Where assessed: Standing at sink Grooming: Level of assistance: Minimum Assist (min balance, set up task) Grooming: Assistance with: Safety LE Dressing LE Dressing: Where assessed: Standing, Sitting, Edge of bed LE Dressing: Level of assistance: Maximum Assist LE Dressing: Assistance with: Don/doff R sock, Don/doff L sock, Thread RLE into pants, Thread LLE into pants, Thread RLE into underwear, Thread LLE into underwear, Pull up over hips, Increased time to complete, Supervision/safety Toileting Toileting: Where assessed: Toilet Toileting: Level of assistance: Moderate Assist Toileting: Assistance with: Clothing management down, Clothing management up, Posterior, Anterior, Safety Toilet Transfers Toilet Transfer From: Bed Toilet Transfer Type: To and from Toilet Transfer to: Standard toilet Toilet Transfer Technique: Ambulating Toilet Transfer: Equipment: No device Toilet Transfers: Minimal assistance Toilet Transfers Comments: Min A for force production, steadying, controlled descent, & cues for technique Pain Pain Assessment Pain Assessment: No/denies pain Cognition Cognition Overall Cognitive Status: Within Functional Limits Arousal/Alertness: Alert Attention Span: Appears intact Memory: Appears intact Current communication: Appears Intact Orientation : Oriented X4 (person, place, time, situation) Following Commands: Follows all commands and directions without difficulty Safety Judgment: Good awareness of safety precautions Awareness of Errors: Good awareness of errors made Insight: Fully aware of deficits Problem Solving: Able to problem solve independently Compliance/Behavior: Easy to engage Short Blessed Test What year is it now?: Correct What month is it now?: Correct Repeat this name and address after me: Marcos Mcpherson [address] [place] [address] Without looking at the clock, tell me what time it is: Correct-within one hour Count aloud backwards from 20-1: 0 Errors Say the months of the year backwards in reverse order: 0 Errors Repeat the name and address I asked you to remember: 0 Errors Short Blessed Total Score: 0 6 Clicks Daily Activity - 6 Clicks Putting on and taking off regular lower body clothing: A Little Bathing: A little Toileting: A little Putting on and taking off upper body clothing: None Personal Grooming: A little Eating Meals: None Total Score (range 6-24): 20 Score Interpretation: 20 Balance Static Sitting Balance Static Sitting-Balance Support: Bilateral upper extremity supported Static Sitting-Sitting Surface: Bed Static Sitting-Level of Assistance: Distant supervision Static Standing Balance Static Standing-Balance Support: No upper extremity supported Static Standing-Standing Surface: Floor Static Standing-Level of Assistance: Contact guard Dynamic Standing Balance Dynamic Standing-Balance Support: No upper extremity supported Dynamic Standing-Balance: Lateral lean, Forward lean, Reaching for objects Dynamic Standing-Standing Surface: Floor Dynamic Standing-Level of Assistance: Minimum assistance Transfers Transfers Transfer: Yes Transfer 1 Transfer From 1: Sit Transfer Type 1: To and from Transfer to 1: Stand Technique 1: Sit to stand, Stand to sit Transfer Device 1: No device Transfer Level of Assistance 1: Minimum Assist Trials/Comments 1: Min A for force production, steadying, controlled descent, & cues for technique Bed Mobility Bed Mobility Bed Mobility: Yes Bed Mobility 1 Bed Mobility From 1: Supine Bed Mobility Type 1: To and from Bed Mobility to 1: Edge of bed Level of Assistance 1: Minimum Assist Bed Mobility Comments 1: Min A for trunk elevation & positioning RUE Assessment RUE Assessment RUE Assessment: Within Functional Limits LUE Assessment LUE Assessment LUE Assessment: Within Functional Limits Safe Environment End of Session Safe Environment End of Therapy Session: Patient left supine in bed, Call light within reach, Overbed table within reach Other Comments Other Comments Comments: Patient is very motivated & receptive to feedback during session. Patient with multiple LOB during functional mobility requiring assist to correct. OT Goals Multi-Disciplinary Problems (from Occupational Therapy) Active Problems Problem: Dressings Lower Extremities Start Date: 03/14/23 Goal Start Date Expected End Date End Date STG - Patient to complete lower body dressing 03/14/23 03/28/23 -- Goal Details: SPV Problem: Grooming Start Date: 03/14/23 Goal Start Date Expected End Date End Date STG - Patient will complete grooming 03/14/23 03/28/23 -- Goal Details: SPV at sink Problem: Transfers Start Date: 03/14/23 Goal Start Date Expected End Date End Date STG - Patient will perform toilet transfer 03/14/23 03/28/23 -- Goal Details: To/from toilet For questions, please review the treatment team and contact the occupational therapist currently assigned to this patient. If an occupational therapist is not assigned to this patient, please call [phone]. * Luis Alfredo Donaldson MD - 03/14/2023 11:37 AM CDT Urology Progress Note Rene Hyatt : 1980 Subjective Interval History: Afebrile, white count remains normal CHELITA drain 50 > 100 ml UOP 2.6L Objective Lab Results Component Value Date CREATININE 0.71 (L) 03/13/2023 CREATININE 0.65 (L) 03/12/2023 CREATININE 0.64 (L) 03/11/2023 WBC 8.7 03/13/2023 WBC 9.7 03/12/2023 WBC 8.8 03/11/2023 HGB 10.4 (L) 03/13/2023 HGB 11.0 (L) 03/12/2023 HGB 11.2 (L) 03/11/2023 RBCU 6-10 (A) 03/06/2023 WBCU 0-5 03/06/2023 NITRITEU Negative 03/06/2023 Recent Vitals(24hr Range): Vitals: 03/13/23 1555 03/13/23 1925 03/14/23 0300 03/14/23 0833 BP: 145/70 140/77 145/69 158/73 BP Location: Left arm Left arm Right arm Right arm Patient Position: HOB 30 degrees HOB 30 degrees HOB 30 degrees Pulse: 87 86 83 83 Resp: 16 16 16 14 Temp: 36.9 ??C (98.5 ??F) 37.3 ??C (99.2 ??F) 36.8 ??C (98.3 ??F) 36.4 ??C (97.5 ??F) TempSrc: Oral Oral Oral Oral SpO2: 96% 95% 93% 92% Weight: Height: I and Os: I/O last 3 completed shifts: In: 1420 [P.O.:1200; IV Piggyback:220] Out: 3550 [Urine:3450; Drains:100] I/O this shift: In: 240 [P.O.:240] Out: 1700 [Urine:1700] Physical Exam: Constitutional: No distress Resp: Non labored CVS: Warm, well perfused Abdomen: Soft, non distended Genitourinary: min with clear yellow urine, incision well approximated, no surrounding redness orinduration, drain ssg Neuro: Alert and oriented Assessment Rene Hyatt is a 42 y.o. male s/p Procedure(s): DEBRIDEMENT PERINEAL WOUND COMPLEX WOUND CLOSURE Plan - Ok to remove min/void trial when ambulatory - Anticipate drain will remain for some time, if output is minimal and he is doing well we will remove before he leaves the hospital. If it's putting out a lot of fluid he may need to go home with it - No heavy lifting x 4 wks, no activities putting pressure on perineum like bike/horse/dirtbike riding but otherwise no restrictions, can walk and do therapy - Recommend scrotal support when up - If there is drainage from the wound, change dressing as BID or as needed when soiled. If no drainage, can be uncovered or have a dressing at his preference Please do not hesitate to contact the urology team with any questions or concerns. Cosigned by Froilan Heart MD at 03/15/2023 1:06 PM CDT * Josephine Chavez PA - 03/14/2023 8:26 AM CDT Daily Progress Note Division of Hospital Medicine Name: Rene Hyatt : 1980 Today's Date: March 14, 2023 Age: 42 y.o. male Admission: 03/06/2023 Bed: [id number] LOS: 8 days Subjective Chief complaint: Perineal abscess Interval History Patient states he is feeling well this morning. Noted pain to his left wrist yesterday, x-ray showed minimal 1st carpometacarpal osteoarthritis, no fracture. Otherwise denies any pain. - CHELITA drain output 100 ml yesterday - Culture now growing destiny glabrata. Per ID no additional treatment for now. Objective Scheduled Meds PRN Meds Infusions acetaminophen, 1,000 mg, oral, Q6H ASTON ampicillin-sulbactam, 3 g, intravenous, Q6H ASTON atorvastatin, 20 mg, oral, Nightly calcium carbonate, 400 mg of elemental calcium, oral, Daily [Held by Provider] enoxaparin, 40 mg, subcutaneous, Q12H ASTON [START ON 03/16/2023] ergocalciferol, 50,000 Units, oral, Once per day on Mon Inna insulin glargine, 20 Units, subcutaneous, Nightly insulin lispro, 0-10 Units, subcutaneous, TID with meals insulin lispro, 0-5 Units, subcutaneous, Nightly insulin lispro, 10 Units, subcutaneous, TID with meals dextrose, 15 g, oral, Q15 Min PRN OR dextrose, 250 mL, intravenous, Q15 Min PRN glucagon, 1 mg, intramuscular, Q30 Min PRN ondansetron, 4 mg, intravenous, Q4H PRN oxyCODONE, 5 mg, oral, Q4H PRN prochlorperazine, 5 mg, intravenous, Q6H PRN white petrolatum-mineral oiL, , topical, BID PRN Lactated Ringer's, 30 mL/hr, Last Rate: 30 mL/hr (03/12/23 1019) Vitals Most Recent Vitals: T 36.4 ??C (97.5 ??F), HR 83, BP 158/73, RR 14, SpO2 92 %. 24hr Min/Max: Temp Min: 36.4 ??C (97.5 ??F) Max: 37.3 ??C (99.2 ??F) Pulse Min: 83 Max: 87 BP Min: 140/77 Max: 158/73 Resp Min: 14 Max: 16 SpO2 Min: 92 % Max: 96 % Intake/Output Summary (Last 24 hours) at 03/14/2023 1425 Last data filed at 03/14/2023 1149 Gross per 24 hour Intake 1550 ml Output 4400 ml Net -2850 ml Physical Exam Vitals reviewed. HENT: Head: Normocephalic. Mouth/Throat: Mouth: Mucous membranes are moist. Eyes: Extraocular Movements: Extraocular movements intact. Cardiovascular: Rate and Rhythm: Normal rate and regular rhythm. Pulmonary: Effort: Pulmonary effort is normal. Breath sounds: Normal breath sounds. Abdominal: General: Bowel sounds are normal. Palpations: Abdomen is soft. Genitourinary: Comments: Dressing to scrotum cdi. Drain intact, serosanguinous fluid in bulb Musculoskeletal: Comments: Dressing intact to L foot Bilateral feet with hyperkeratosis Skin: General: Skin is warm and dry. Neurological: General: No focal deficit present. Mental Status: He is alert and oriented to person, place, and time. Psychiatric: Mood and Affect: Mood normal. Behavior: Behavior normal. Thought Content: Thought content normal. Lines, Drains, Airways Peripheral IV 03/06/23 20 G Right Antecubital (Active) Peripheral IV 03/08/23 20 G Anterior;Distal;Right Forearm (Active) Peripheral IV 03/12/23 18 G Left Hand (Active) Closed/Suction/Open Drain 1 Perineal Bulb 19 Fr. (Active) Urethral Catheter Straight-tip;Non-latex (Active) Labs/Diagnostic Review Na 139 Cl 97 BUN 5 K 3.8 CO2 34 Cr 0.71 Mg -, G AST - ALT - Alk Phos - Ca 8.3 TP - Alb - Total Bili: - Direct Bili: - \ Hgb 10.4 / WBC 8.7 -------- Plt 202 / MCV 85.3 \ INR - (Labs above are the most recent result obtained in the last 24 hours. For additional labs/trends, see Epic.) I have reviewed the laboratory results. Imaging Review XR Wrist Left 3 or More Views Result Date: 03/13/2023 No left wrist fracture. Electronically signed by: Juan Jeter MD I have independently reviewed and interpreted labs. 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 Denied systemic symptoms on admission, noted to have leukocytosis with PMN predom and elevated inflammatory markers. CTAP w contrast: extensive soft tissue thickening throughout the scrotum extending towards the peroneal surface posteriorly, 7.5 cm subcutaneous fluid collection with air collections suggesting abscess, LN along iliac deanne chians and inguinal regions. S/p OR 03.06 with urology and ACCS for I&D of abscess and debridement. No tracking to rectum.S/p wound vac placement with urology. 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 Op cultures 03/06 growing strep anginosus and mixedorganisms. Op culture 03/10 growing mixed organisms and destiny glabrata. ID consulted and recommendtreatment with unasyn. Plan: - Bcx NGTD - Urology following - s/p OR 03/12 with urology with debridement of wound, wound closure and drain placed - wound care recs: if drainage change dressing BID or PRN. If no drainage can be uncovered or have dressing as pt preference - continue Unasyn Diabetes mellitus, new onset (CMS/HCC) ([facility]) Assessment & Plan Endocrinology following and currently on basal bolus regimen - cont lantus 20, lispro 10 per endocrinology recs - continue atorvastatin 20 mg daily - patient seen by DM educator Anemia Assessment & Plan Hgb 11.2 and BL 10-11. No signs of bleeding -CTM Hgb Diabetic foot ulcer (CMS/HCC) ([facility]) Assessment & Plan S/p debridement with podiatry. L foot XR with no OM - continue daily dressing changes - WBAT in heel strike shoe per PT - follow up in wound center at discharge Vitamin D deficiency Assessment & Plan Undetectable Vit D Level -continue 5k units weekly x3 months. 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 Reviewed records from the following unique sources (external institutions or providers from different services): ID, urology . Independently interpreted test BG which shows stable. ELLA Ortega Cosigned by Neno Lei MD at 03/14/2023 3:12 PM CDT Associated attestation - Neno Lei MD - 03/14/2023 3:12 PM CDT I have seen and examined the patient on 03/14/23. I agree with the findings and plan of care. * Davis Moraima - 03/13/2023 1:33 PM CDT Physical Therapy Physical Therapy Initial Assessment NOTE: This is a summary note for the elizabeth assessments completed during the evaluation session. For full details, review chart review for all flowsheets documented on by this physical therapist on thisda. Vital signs documented in vital signs flowsheet. Assessment Assessment Prognosis: Good Problem List: Gait deviations, Decreased strength, Decreased endurance, Impaired balance, Decreasedmobility Problem List Comments: s/p I&D perineum 03/06 c/b necrotizing skin infection results in above listed activity deficits and impairments which prevent full participation in home and community mobility Barriers to Discharge: Current Mobility Status, Decreased caregiver support Plan Plan Plan : Alter current plan, If this is the last note, consider this the discharge summary PT Recommendation and Plan Recommendation/Plan PT Recommendation/Plan: Inpatient Rehab Facility Patient at high risk for: Falls, Injury due to reduced functional status, Injury due to balance deficits, Injury at home as patient has not returned to prior level of function Recommend Inpatient Rehab/Acute Rehab due to: Ability to actively participate in intensive therapy 3 hours/day, 5 days/week or 900 minutes per week, Highly motivated to participate in therapy, Impaired ability to complete functional mobility, Likely to return to the community at discharge with support system in place, Requires multiple therapy disciplines to address functional deficits PT Frequency during current admission: 3-5x/wk Treatment/Interventions during current admission: Balance Training, Bed mobility, Endurance training, Gait training, Neuromuscular re-education, Stair training, Strengthening, Therapeutic activity, Therapeutic exercise PT - Next Appointment: 03/16/23 PT Evaluation Complete: Yes General Information General Chart Reviewed: Yes Session Type: Re-Evaluation PT Received On: 03/13/23 Safe Environment: Arm band checked, Patient found in supine, Gait belt utilized for all out of bed mobility Subjective: Agreeable to Therapy Family/Caregiver Present: No Physical Therapy-Patient Goal: Return home Prior Function Prior Function Level of [place]: Independent with ADLs, Independent with ambulation, Independent functional transfers (no AD) Lives 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: 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 Pt expressed verbal understanding. Pain Pain Assessment Pain Assessment: No/denies pain Cognition Cognition Arousal/Alertness: Alert Orientation : Oriented X4 (person, place, time, situation) Following Commands: Follows all commands and directions without difficulty 6 Clicks Basic Mobility - 6 Click How much difficulty does the patient have: Turning over in bed: A little How much difficulty does the patient currently have: Sitting down and standing up from a chair witharms?: A little How much difficulty does the patient have: Moving from lying on back to sitting on the side of the bed?: A little How much difficulty does the patient have: Moving to and from a bed to a chair including wheelchair?: A little How much help does the patient currently need: Walk in hospital room?: A little How much help from another person does the patient currently need: Climbing 3-5 steps with a railing?: A little Total 6 Click Score (range 6-24): 18 Score Interpretation: 18 Bed Mobility Bed Mobility 1 Bed Mobility From 1: Supine Bed Mobility Type 1: To and from Bed Mobility to 1: Side lying-right, Side lying-left Level of Assistance 1: Standby Assist Bed Mobility Comments 1: Standby for line management. Hob elevated to 30 degrees Bed Mobility 2 Bed Mobility From 2: Supine Bed Mobility Type 2: To and from Bed Mobility to 2: Edge of Bed Level of Assistance 2: Standby Assist Bed Mobility Comments 2: Standby assist for line management Transfers Transfer 1 Transfer From 1: Sit Transfer Type 1: To and from Transfer to 1: Stand Technique 1: Sit to stand, Stand to sit Transfer Device 1: No device Transfer Level of Assistance 1: Contact Guard Assist, Minimal verbal cues Trials/Comments 1: Use of BUE for force production. Verbal cues to push up from the bed rather thanpull up on walker. Balance Static Standing Balance Static Standing-Balance Support: Bilateral upper extremity supported (on WW) Static Standing-Standing Surface: Floor Static Standing-Level of Assistance: Close supervision Static Standing-Comment/# of Minutes: ~3 minutes. Pt reports it feels good to stand. Upon standing pt began to ambulate and had one LOB 2/2 not orienting himself to the length difference in legs d/t heel stike boot. Dynamic Standing Balance Dynamic Standing-Balance Support: Bilateral upper extremity supported (on WW) Dynamic Standing-Standing Surface: Floor Dynamic Standing-Level of Assistance: Contact guard Dynamic Standing-Comments: lateral stepping x3 each way and weight shifting to each side x5 Ambulation Ambulation 1 Distance (ft) 1: 25 Surface 1: Level tile Device 1: Wheeled walker Other Apparatus 1: Other (Comment) (Heel strike shoe applied prior to getting to EOB.) Assistance 1: Contact Guard Assist Gait: Requires verbal cues to 1: Pace activity, Use assistive device safely Gait Deviations 1: Step length - decreased, Catarina - decreased, Lateral trunk lean/sway Ambulation Comments 1: Prior to ambulation pt took lateral steps to trial walking with a heel strike shoe on one foot and maintaining his balance. Stairs Curbs RLE Assessment RLE Assessment RLE Assessment: Within Functional Limits LLE Assessment LLE Assessment LLE Assessment: Within Functional Limits Equipment Used Safe Environment End of Session Safe Environment End of Therapy Session: Patient left supine in bed, RN notified, Call light withinreach, Overbed table within reach Other Comments Other Comments Other PT Comments: Assisted ARYAN Fraser in donning jock strap. Upon sitting down after ambulation pt reports being light headed. Symptoms resolved with rest. PT Goals Multi-Disciplinary Problems (from Physical Therapy) Active Problems Problem: Mobility Start Date: 03/08/23 Goal Start Date Expected End Date End Date LTG - Patient will ambulate community distance 03/08/23 05/08/23 -- Goal Details: Without AD independently Goal Start Date Expected End Date End Date STG - Patient will ambulate 03/08/23 03/27/23 -- Goal Details: 150 feet with LRD independently Problem: Transfers Start Date: 03/08/23 Goal Start Date Expected End Date End Date STG - Patient to transfer to and from sit to supine 03/08/23 03/27/23 -- Goal Details: Independently Goal Start Date Expected End Date End Date STG - Patient will transfer sit to and from stand 03/08/23 03/27/23 -- Goal Details: Independently Problem: Orthotic Start Date: 03/08/23 Goal Start Date Expected End Date End Date STG - Patient and/or caregiver will perform home exercise program with the following level of assist: 03/08/23 03/27/23 -- Goal Details: Independently in order to maintain strength and improve ROM Cosigned by Huma Braden DPT at 03/13/2023 3:40 PM CDT * Josephine Chavez PA - 03/13/2023 11:36 AM CDT Daily Progress Note Division of Hospital Medicine Name: Rene Hyatt : 1980 Today's Date: March 13, 2023 Age: 42 y.o. male Admission: 03/06/2023 Bed: [id number] LOS: 7 days Subjective Chief complaint: Perineal abscess Interval History Patient states he is feeling well this morning. He denies any scrotal pain. He is eager to start PT/OT. - VSS, BG stable - OR cultures growing yeast. Per ID unclear if clinically relevant. Continue Unasyn - per urology okay to remove min when patient ambulatory. Will plan for void trial in coming days Objective Scheduled Meds PRN Meds Infusions acetaminophen, 1,000 mg, oral, Q6H ASTON ampicillin-sulbactam, 3 g, intravenous, Q6H ASTON atorvastatin, 20 mg, oral, Nightly calcium carbonate, 400 mg of elemental calcium, oral, Daily [Held by Provider] enoxaparin, 40 mg, subcutaneous, Q12H ASTON ergocalciferol, 50,000 Units, oral, Weekly insulin glargine, 20 Units, subcutaneous, Nightly insulin lispro, 0-10 Units, subcutaneous, TID with meals insulin lispro, 0-5 Units, subcutaneous, Nightly insulin lispro, 8 Units, subcutaneous, TID with meals dextrose, 15 g, oral, Q15 Min PRN OR dextrose, 250 mL, intravenous, Q15 Min PRN glucagon, 1 mg, intramuscular, Q30 Min PRN ondansetron, 4 mg, intravenous, Q4H PRN oxyCODONE, 5 mg, oral, Q4H PRN prochlorperazine, 5 mg, intravenous, Q6H PRN white petrolatum-mineral oiL, , topical, BID PRN Lactated Ringer's, 30 mL/hr, Last Rate: 30 mL/hr (03/12/23 1019) Vitals Most Recent Vitals: T 36.9 ??C (98.5 ??F), HR 87, BP 145/70, RR 16, SpO2 96 %. 24hr Min/Max: Temp Min: 36.7 ??C (98.1 ??F) Max: 37.4 ??C (99.3 ??F) Pulse Min: 82 Max: 93 BP Min: 122/58 Max: 153/74 Resp Min: 16 Max: 18 SpO2 Min: 93 % Max: 97 % Intake/Output Summary (Last 24 hours) at 03/13/2023 1622 Last data filed at 03/13/2023 1425 Gross per 24 hour Intake -- Output 1480 ml Net -1480 ml Physical Exam Vitals reviewed. HENT: Head: Normocephalic. Mouth/Throat: Mouth: Mucous membranes are moist. Eyes: Extraocular Movements: Extraocular movements intact. Cardiovascular: Rate and Rhythm: Normal rate and regular rhythm. Pulmonary: Effort: Pulmonary effort is normal. Breath sounds: Normal breath sounds. Abdominal: General: Bowel sounds are normal. Palpations: Abdomen is soft. Genitourinary: Comments: Scrotal wound with drain, serosanguinous fluid in bulb Musculoskeletal: Comments: Dressing intact to L foot Bilateral feet with hyperkeratosis Skin: General: Skin is warm and dry. Neurological: General: No focal deficit present. Mental Status: He is alert and oriented to person, place, and time. Psychiatric: Mood and Affect: Mood normal. Behavior: Behavior normal. Thought Content: Thought content normal. Lines, Drains, Airways Peripheral IV 03/06/23 20 G Right Antecubital (Active) Peripheral IV 03/08/23 20 G Anterior;Distal;Right Forearm (Active) Peripheral IV 03/12/23 18 G Left Hand (Active) Closed/Suction/Open Drain 1 Perineal Bulb 19 Fr. (Active) Urethral Catheter Straight-tip;Non-latex (Active) Labs/Diagnostic Review Na 136 Cl 98 BUN 7 K 3.8 CO2 32 Cr 0.65 Mg -, G AST - ALT - Alk Phos - Ca 8.0 TP - Alb - Total Bili: - Direct Bili: - \ Hgb 11.0 / WBC 9.7 -------- Plt 226 / MCV 84.1 \ INR - (Labs above are the most recent result obtained in the last 24 hours. For additional labs/trends, see Epic.) I have reviewed the laboratory results. Imaging Review No results found. I have independently reviewed and interpreted labs. 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 Denied systemic symptoms on admission, noted to have leukocytosis with PMN predom and elevated inflammatory markers. CTAP w contrast: extensive soft tissue thickening throughout the scrotum extending towards the peroneal surface posteriorly, 7.5 cm subcutaneous fluid collection with air collections suggesting abscess, LN along iliac deanne chians and inguinal regions. S/p OR 03.06 with urology and ACCS for I&D of abscess and debridement. No tracking to rectum.S/p wound vac placement with urology. 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 Op cultures 03/06 growing strep anginosus and mixedorganisms. Op culture 03/10 growing mixed organisms and yeast. ID consulted and recommend treatment with unasyn. Plan: - Bcx NGTD - Urology following - s/p OR 03/12 with urology with debridement of wound, wound closure and drain placed - wound care recs: if drainage change dressing BID or PRN. If no drainage can be uncovered or have dressing as pt preference - continue Unasyn Diabetes mellitus, new onset (CMS/HCC) ([facility]) Assessment & Plan Endocrinology following and currently on basal bolus regimen - cont lantus 20, lispro 6 per endocrinology recs - continue atorvastatin 20 mg daily - patient seen by DM educator Anemia Assessment & Plan Hgb 11.2 and BL 10-11. No signs of bleeding -CTM Hgb Diabetic foot ulcer (CMS/HCC) ([facility]) Assessment & Plan S/p debridement with podiatry. L foot XR with no OM - continue daily dressing changes - WBAT in heel strike shoe per PT - follow up in wound center at discharge Vitamin D deficiency Assessment & Plan Undetectable Vit D Level -continue 5k units weekly x3 months. 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 Reviewed records from the following unique sources (external institutions or providers from different services): ID, urology . Independently interpreted test BG which shows stable. ELLA Ortega Cosigned by Neno Lei MD at 03/13/2023 5:03 PM CDT Associated attestation - Neno Lei MD - 03/13/2023 5:03 PM CDT I have seen and examined the patient on 03/13/23. I agree with the findings and plan of care. * Jamari Whitfield MD - 03/13/2023 7:32 AM CDT Urology Progress Note Rene Hyatt : 1980 Subjective Interval History: Afebrile, white count remains normal 50 cc drain output Objective Lab Results Component Value Date CREATININE 0.65 (L) 03/12/2023 CREATININE 0.64 (L) 03/11/2023 CREATININE 0.68 (L) 03/10/2023 WBC 9.7 03/12/2023 WBC 8.8 03/11/2023 WBC 8.8 03/10/2023 HGB 11.0 (L) 03/12/2023 HGB 11.2 (L) 03/11/2023 HGB 11.4 (L) 03/10/2023 RBCU 6-10 (A) 03/06/2023 WBCU 0-5 03/06/2023 NITRITEU Negative 03/06/2023 Recent Vitals(24hr Range): Vitals: 03/12/23 1711 03/12/23 1811 03/12/23203903/13/23525 BP: 152/72 153/74 122/58 138/65 BP Location: Left arm Left arm Left arm Left arm Patient Position: Sitting Sitting Pulse: 93 92 89 82 Resp: 18 16 17 16 Temp: 37.3 ??C (99.1 ??F) 37.2 ??C (98.9 ??F) 37.4 ??C (99.3 ??F) 36.7 ??C (98.1 ??F) TempSrc: Oral Oral Oral Oral SpO2: 93% 96% 93% 94% Weight: Height: I and Os: I/O last 3 completed shifts: In: 500 [I.V.:500] Out: 2845 [Urine:2775; Drains:50; Blood:20] No intake/output data recorded. Physical Exam: Constitutional: No distress Resp: Non labored CVS: Warm, well perfused Abdomen: Soft, non distended Genitourinary: min with clear yellow urine, incision well approximated, no surrounding redness orinduration, drain ssg Neuro: Alert and oriented Assessment Rene Hyatt is a 42 y.o. male s/p Procedure(s): DEBRIDEMENT PERINEAL WOUND COMPLEX WOUND CLOSURE Plan - Ok to remove min/void trial when ambulatory - Anticipate drain will remain for some time, if output is minimal and he is doing well we will remove before he leaves the hospital. If it's putting out a lot of fluid he may need to go home with it - No heavy lifting x 4 wks, no activities putting pressure on perineum like bike/horse/dirtbike riding but otherwise no restrictions, can walk and do therapy - Recommend scrotal support when up - If there is drainage from the wound, change dressing as BID or as needed when soiled. If no drainage, can be uncovered or have a dressing at his preference Please do not hesitate to contact the urology team with any questions or concerns. Jamari Whitfield MD 03/13/2023 Cosigned by Hans Negron MD at 03/13/2023 1:39 PM CDT * Josephine Chavez PA - 03/12/2023 1:33 PM CDT Daily Progress Note Division of Hospital Medicine Name: Rene Hyatt : 1980 Today's Date: March 12, 2023 Age: 42 y.o. male Admission: 03/06/2023 Bed: [id number] LOS: 6 days Subjective Chief complaint: Perineal abscess Interval History Patient seen after OR. He reports he is feeling well. He denies any pain. - VSS, BG stable - continue Unasyn Objective Scheduled Meds PRN Meds Infusions acetaminophen, 1,000 mg, oral, Q6H ASTON ampicillin-sulbactam, 3 g, intravenous, Q6H ASTON atorvastatin, 20 mg, oral, Nightly calcium carbonate, 400 mg of elemental calcium, oral, Daily [Held by Provider] enoxaparin, 40 mg, subcutaneous, Q12H ASOTN ergocalciferol, 50,000 Units, oral, Weekly insulin glargine, 20 Units, subcutaneous, Nightly insulin lispro, 0-10 Units, subcutaneous, TID with meals insulin lispro, 0-5 Units, subcutaneous, Nightly insulin lispro, 8 Units, subcutaneous, TID with meals dextrose, 15 g, oral, Q15 Min PRN OR dextrose, 250 mL, intravenous, Q15 Min PRN glucagon, 1 mg, intramuscular, Q30 Min PRN ondansetron, 4 mg, intravenous, Q4H PRN oxyCODONE, 5 mg, oral, Q4H PRN prochlorperazine, 5 mg, intravenous, Q6H PRN white petrolatum-mineral oiL, , topical, BID PRN Lactated Ringer's, 30 mL/hr, Last Rate: 30 mL/hr (03/12/23 1019) Vitals Most Recent Vitals: T 36.8 ??C (98.2 ??F), HR 84, BP 154/71, RR 18, SpO2 94 %. 24hr Min/Max: Temp Min: 36.5 ??C (97.7 ??F) Max: 37.2 ??C (99 ??F) Pulse Min: 79 Max: 97 BP Min: 131/62 Max: 154/71 Resp Min: 11 Max: 18 SpO2 Min: 91 % Max: 98 % Intake/Output Summary (Last 24 hours) at 03/12/2023 1543 Last data filed at 03/12/2023 1320 Gross per 24 hour Intake 1100 ml Output 1925 ml Net -825 ml Physical Exam Vitals reviewed. HENT: Head: Normocephalic. Mouth/Throat: Mouth: Mucous membranes are moist. Eyes: Extraocular Movements: Extraocular movements intact. Cardiovascular: Rate and Rhythm: Normal rate and regular rhythm. Pulmonary: Effort: Pulmonary effort is normal. Breath sounds: Normal breath sounds. Abdominal: General: Bowel sounds are normal. Palpations: Abdomen is soft. Genitourinary: Comments: Scrotal wound with drain, serosanguinous fluid in bulb Musculoskeletal: Comments: Dressing intact to L foot Bilateral feet with hyperkeratosis Skin: General: Skin is warm and dry. Neurological: General: No focal deficit present. Mental Status: He is alert and oriented to person, place, and time. Psychiatric: Mood and Affect: Mood normal. Behavior: Behavior normal. Thought Content: Thought content normal. Lines, Drains, Airways Peripheral IV 03/06/23 20 G Right Antecubital (Active) Peripheral IV 03/08/23 20 G Anterior;Distal;Right Forearm (Active) Peripheral IV 03/12/23 18 G Left Hand (Active) Closed/Suction/Open Drain 1 Perineal Bulb 19 Fr. (Active) Urethral Catheter Straight-tip;Non-latex (Active) Labs/Diagnostic Review Na 140 Cl 101 BUN 8 K 3.8 CO2 33 Cr 0.64 Mg 2.0, G AST - ALT - Alk Phos - Ca 8.1 TP - Alb - Total Bili: - Direct Bili: - \ Hgb 11.2 / WBC 8.8 -------- Plt 248 / MCV 85.5 \ INR - (Labs above are the most recent result obtained in the last 24 hours. For additional labs/trends, see Epic.) I have reviewed the laboratory results. Imaging Review No results found. I have independently reviewed and interpreted labs. 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 Denied systemic symptoms on admission, noted to have leukocytosis with PMN predom and elevated inflammatory markers. CTAP w contrast: extensive soft tissue thickening throughout the scrotum extending towards the peroneal surface posteriorly, 7.5 cm subcutaneous fluid collection with air collections suggesting abscess, LN along iliac deanne chians and inguinal regions. S/p OR 9.29 with urology and ACCS for I&D of abscess and debridement. No tracking to rectum.S/p wound vac placement with urology. 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 Op cultures growing strep anginosus and mixed organisms. ID consulted and recommend treatment with unasyn. Plan: - Urology following - wound care recs per urology - s/p OR 03/12 with urology with debridement of wound, wound closure and drain placed - continue Unasyn Diabetes mellitus, new onset (CMS/HCC) ([facility]) Assessment & Plan Endocrinology following and currently on basal bolus regimen - cont lantus 20, lispro 6 per endocrinology recs - continue atorvastatin 20 mg daily - patient seen by DM educator Anemia Assessment & Plan Hgb 11.2 and BL 10-11. No signs of bleeding -CTM Hgb Diabetic foot ulcer (CMS/HCC) ([facility]) Assessment & Plan S/p debridement with podiatry. L foot XR with no OM - continue daily dressing changes - WBAT in heel strike shoe per PT - follow up in wound center at discharge Vitamin D deficiency Assessment & Plan Undetectable Vit D Level -continue 5k units weekly x3 months. Will then have to be transitioned to low dose vit d Code status : Full Code Diet : Adult Diet Restricted; Consistent Carbohydrate PT/OT Dispo Rec : PT Recommendation/Plan: Senior Living Facility / Supplementary Attestation The total encounter time on this service date was 45 minutes which was spent performing a [id number]-wurr encounter and personally completing the provider-level activities documented in the note. This includes time spent prior to the visit and after the visit in direct care of the patient. This time does not include time spent in any separately reportable services. ELLA Ortega Cosigned by Neno Lei MD at 03/12/2023 5:08 PM CDT Associated attestation - Neno Lei MD - 03/12/2023 5:08 PM CDT I have seen and examined the patient on 03/12/23. I agree with the findings and plan of care. * Taryn Guo OT - 03/12/2023 1:31 PM CDT Occupational Therapy 03/12/23 1331 General OT Missed Visit Reason Procedure/testing/appointment;Change in medical status;Other (comment) (OR for debridement; Will continue to follow) * Maya Cunningham, PT - 03/12/2023 1:22 PM CDT Physical Therapy 03/12/23 1322 PT Last Visit PT Missed Visit Reason Procedure/testing/appointment (To OR for debridement) * Dagoberto Paredes MD - 03/12/2023 11:28 AM CDT ACCS Brief Note Called to OR to ensure no rectal involvement prior to wound closure by Urology. Wound with healthy tissue, no signs of ongoing necrosis. Wound not continuous with rectum on KARLA. Wound good for closure from ACCS perspective. Dagoberto Paredes MD Resident Physician General Surgery ACCS Inpatient Consult ACCS ED Consult [facility]S Outpatient Clinic - option 1 * Adelita Benoit MD - 03/12/2023 9:00 AM CDT Urology Progress Note Rene Hyatt : 1980 Subjective Interval History: NAEO, AF, VSS Labs WNL Wound base appears healthy Objective Recent Vitals(24hr Range): Vitals: 03/11/23 1615 03/11/23201403/12/23 0511 03/12/23 0750 BP: 133/67 139/63 138/78 137/63 BP Location: Left arm Left arm Patient Position: Pulse: 87 97 83 82 Resp: 16 17 16 17 Temp: 36.6 ??C (97.9 ??F) 37.2 ??C (99 ??F) 36.5 ??C (97.7 ??F) 36.8 ??C (98.2 ??F) TempSrc: Oral (P) Oral SpO2: 96% 97% 97% 92% Weight: Height: I and Os: I/O last 3 completed shifts: In: 600 [P.O.:600] Out: 2500 [Urine:2500] I/O this shift: In: - Out: 525 [Urine:525] Physical Exam: Constitutional: Appears comfortable. No acute distress. Resp: Good inspiratory effort, symmetric chest wall movements CVS: Regular rate and rhythm. Abdomen: Soft, non distended Genitourinary: min clear yellow urine, wound repacked, no obvious necrotic tissue, wound base looks healthy Skin: warm, well perfused Assessment Rene Hyatt is a 42 y.o. male s/p Procedure(s): DEBRIDEMENT PERINEAL WOUND Plan - Plan to return to OR today - Anticipate we can at least partially close at that point - OK to repack wound w dakin's or vashe soaked kerlix if dressing gets soiled or falls out - Repacking can resume after procedure today (BID per nursing) - Please consult wound care if not already following - Please order Vashe to be at bedside for dressing changes Please do not hesitate to contact the urology team with any questions or concerns. Adelita Benoit MD 03/12/2023 Cosigned by Hans Negron MD at 03/12/2023 9:20 AM CDT Associated attestation - Hans Negron MD - 03/12/2023 9:20 AM CDT I have seen and examined the patient on 03/12/23. I agree with the findings and plan of care as documented in the resident's/fellow's note.. * Josephine Chavez PA - 03/11/2023 1:00 PM CDT Daily Progress Note Division of Hospital Medicine Name: Rene Hyatt : 1980 Today's Date: March 11, 2023 Age: 42 y.o. male Admission: 03/06/2023 Bed: [id number] LOS: 5 days Subjective Chief complaint: Scrotal pain Interval History Patient states he is feeling well this morning. Reports scrotal pain since dressing change this morning. He has been eating and drinking well. 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 - Per urology plan for OR tomorrow Objective Scheduled Meds PRN Meds Infusions acetaminophen, 1,000 mg, oral, Q6H ASTON ampicillin-sulbactam, 3 g, intravenous, Q6H ASTON atorvastatin, 20 mg, oral, Nightly calcium carbonate, 400 mg of elemental calcium, oral, Daily enoxaparin, 40 mg, subcutaneous, Q12H ASTON ergocalciferol, 50,000 Units, oral, Weekly insulin glargine, 20 Units, subcutaneous, Nightly insulin lispro, 0-10 Units, subcutaneous, TID with meals insulin lispro, 0-5 Units, subcutaneous, Nightly insulin lispro, 6 Units, subcutaneous, TID with meals dextrose, 15 g, oral, Q15 Min PRN OR dextrose, 250 mL, intravenous, Q15 Min PRN glucagon, 1 mg, intramuscular, Q30 Min PRN ondansetron, 4 mg, intravenous, Q4H PRN oxyCODONE, 5 mg, oral, Q4H PRN prochlorperazine, 5 mg, intravenous, Q6H PRN white petrolatum-mineral oiL, , topical, BID PRN Vitals Most Recent Vitals: T 36.6 ??C (97.9 ??F), HR 87, BP 133/67, RR 16, SpO2 96 %. 24hr Min/Max: Temp Min: 36.3 ??C (97.4 ??F) Max: 36.9 ??C (98.5 ??F) Pulse Min: 79 Max: 88 BP Min: 128/64 Max: 139/62 Resp Min: 16 Max: 18 SpO2 Min: 93 % Max: 96 % Intake/Output Summary (Last 24 hours) at 03/11/2023 1647 Last data filed at 03/11/2023 1315 Gross per 24 hour Intake -- Output 1750 ml Net -1750 ml Physical Exam Vitals reviewed. HENT: Head: Normocephalic. Mouth/Throat: Mouth: Mucous membranes are moist. Eyes: Extraocular Movements: Extraocular movements intact. Cardiovascular: Rate and Rhythm: Normal rate and regular rhythm. Pulmonary: Effort: Pulmonary effort is normal. Breath sounds: Normal breath sounds. Abdominal: General: Bowel sounds are normal. Palpations: Abdomen is soft. Genitourinary: Comments: Scrotal wound with packing in place Skin: General: Skin is warm and dry. Neurological: General: No focal deficit present. Mental Status: He is alert and oriented to person, place, and time. Psychiatric: Mood and Affect: Mood normal. Behavior: Behavior normal. Thought Content: Thought content normal. Lines, Drains, Airways Peripheral IV 03/06/23 20 G Right Antecubital (Active) Peripheral IV 03/08/23 20 G Anterior;Distal;Right Forearm (Active) Urethral Catheter Straight-tip;Non-latex (Active) Labs/Diagnostic Review Na 139 Cl 101 BUN 12 K 4.1 CO2 31 Cr 0.68 Mg 2.0, G AST 25 ALT 16 Alk Phos 100 Ca 8.3 TP - Alb 2.2 Total Bili: 0.2 Direct Bili: - \ Hgb 11.4 / WBC 8.8 -------- Plt 270 / MCV 83.9 \ INR - (Labs above are the most recent result obtained in the last 24 hours. For additional labs/trends, see Epic.) I have reviewed the laboratory results. Imaging Review No results found. I have independently reviewed and interpreted labs. 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 Denied systemic symptoms on admission, noted to have leukocytosis with PMN predom and elevated inflammatory markers. CTAP w contrast: extensive soft tissue thickening throughout the scrotum extending towards the peroneal surface posteriorly, 7.5 cm subcutaneous fluid collection with air collections suggesting abscess, LN along iliac deanne chians and inguinal regions. S/p OR 9.29 with urology and ACCS for I&D of abscess and debridement. No tracking to rectum.S/p wound vac placement with urology. 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 Op cultures growing strep anginosus and mixed organisms. ID consulted and recommend treatment with unasyn. Plan: - continue unasyn - Urology following, plan for OR tomorrow, NPO at NH - wound care recs per urology Diabetes mellitus, new onset (CMS/HCC) ([facility]) Assessment & Plan Endocrinology following and currently on basal bolus regimen - cont lantus 20, lispro 6 per endocrinology recs - start atorva 20 - patient seen by DM educator Anemia Assessment & Plan Hgb 11.2 and BL 10-11. No signs of bleeding -CTM Hgb Diabetic foot ulcer (CMS/HCC) ([facility]) Assessment & Plan S/p debridement with podiatry. L foot XR with no OM - continue daily dressing changes - WBAT in heel strike shoe per PT - follow up in wound center at discharge Vitamin D deficiency Assessment & Plan Undetectable Vit D Level -continue 5k units weekly x3 months. Will then have to be transitioned to low dose vit d Code status : Full Code Diet : Adult Diet Restricted; Consistent Carbohydrate NPO Diet PT/OT Dispo Rec : PT Recommendation/Plan: Senior Living Facility / Supplementary Attestation The total encounter time on this service date was 45 minutes which was spent performing a [id number] encounter and personally completing the provider-level activities documented in the note. This includes time spent prior to the visit and after the visit in direct care of the patient. This time does not include time spent in any separately reportable services. ELLA Ortega Cosigned by Neno Lei MD at 03/12/2023 5:04 PM CDT Associated attestation - Neno Lei MD - 03/12/2023 5:04 PM CDT I have seen and examined the patient on 03/11/2023. I agree with the findings and plan of care. * Jamari Whitfield MD - 03/11/2023 7:45 AM CDT Urology Progress Note Rene Hyatt : 1980 Subjective Interval History: Transferred to floor Otherwise no events Wound base looks healthy today, no obvious necrotic tissue Objective Recent Vitals(24hr Range): Vitals: 03/10/23 1500 03/10/23 1555 03/10/23 2225 03/11/23 0455 BP: 155/91 152/81 132/64 139/62 BP Location: Left arm Left arm Patient Position: HOB 30 degrees HOB 30 degrees Pulse: 84 93 88 81 Resp: 14 18 18 18 Temp: 36.7 ??C (98.1 ??F) 36.7 ??C (98.1 ??F) 36.7 ??C (98.1 ??F) TempSrc: Oral Oral SpO2: 94% 95% 93% 94% Weight: Height: I and Os: I/O last 3 completed shifts: In: 1030 [P.O.:500; I.V.:200; IV Piggyback:330] Out: 980 [Urine:875; Emesis/NG output:100; Blood:5] I/O this shift: In: - Out: 1100 [Urine:1100] Physical Exam: Constitutional: Appears comfortable. No acute distress. Resp: Good inspiratory effort, symmetric chest wall movements CVS: Regular rate and rhythm. Abdomen: Soft, non distended Genitourinary: min clear yellow urine, wound repacked, no obvious necrotic tissue, wound base looks healthy Skin: warm, well perfused Assessment Rene Hyatt is a 42 y.o. male s/p Procedure(s): DEBRIDEMENT PERINEAL WOUND Plan - Plan to return to OR on - Anticipate we can at least partially close at that point - OK to repack wound w dakin's or vashe soaked kerlix if dressing gets soiled or falls out - Wound should be repacked BID, I packed this AM, RNs to pack in PM - No need to repack it tomorrow, we will do in OR - Please consult wound care if not already following - Please order Vashe to be at bedside for dressing changes Please do not hesitate to contact the urology team with any questions or concerns. Jamari Whitfield MD 03/11/2023 Cosigned by Hans Ulrich MD at 03/11/2023 9:17 PM CDT Associated attestation - Hans Ulrich MD - 03/11/2023 9:17 PM CDT I have seen and examined the patient on 03/11/23. I agree with the findings and plan of care as documented in the resident's/fellow's note. Diagnosis: Yamila's Gangrene. Will plan on OR tomorrow for wash out. . * Susan Epps MD - 03/10/2023 5:34 PM CDT Hospitalist Accept Note Division of Hospital Medicine Name: Rene Hyatt : 1980 Today's Date: March 10, 2023 Age: 42 y.o. male Admit Date: 03/06/2023 Bed: [id number] LOS: 4 days Subjective Rene Hyatt is a 42 y.o. male with chief complaint of scrotal abscess. HPI Mr. 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 He was started on clindamycin, cefe/vanc and transferred to [facility] on 03/06for urology evaluation. On presentation, he denies systemic symptoms. He was noted to have WBC 17.3 with PMN predominance, ESR 103, CRP 272.2. CTAP w contrast: extensive soft tissue thickening throughout the scrotum extending towards the peroneal surface posteriorly, 7.5 cm subcutaneous fluid collection with air collections suggesting abscess, LN along iliac deanne chians and inguinal regions. He was taken to the OR on 03/06 with ACCS and urology for I&D and debridement. The joint procedure was notable for purulent fluid and necrotic tissue found extending down to the anus tracking up the scrotum and into the inguinal canals. Urology I&D the abscess and debrided the necrotic tissue. ACCS present as well and i ntra-op KARLA with no communciation of wound base to rectum. Per urology, the presentation was consistent with scrotal cellulitis with significant swelling but no signs of Yamila's gangrene. He underwent another debridement and wound vac placement with urology on 03/07. He returned to the OR today for debridement and partial closure of wound vac with urology, cultures were also sent. He was on martha, vanc at [facility]. His culture results are as follows: BCx 03/06 with NGTD Scrotal Abscess cx 03/06: abundant strep anginosus, mixed organisms Scrotal Tissue cx 03/06: moderate strep anginosus, mixed organisms Scrotal Abscess cx /: abundant GPCs Scrotal tissue cx 10/3: moderate GPCs ID was consulted for antibiotic regimen recommendations on 03/09. They recommended to stop vanc/meroand start unasyn 3g q6 hrs. Podiatry was consulted for L foot ulcer and is now s/p bedside debridement. L foot XR with no evidence of osteomyelitis. He was also noted to have DKA on admission with no prior known history of diabetes. His A1c 13.3, noted to have AGMA, 2+ ketones in urine, and +serum beta hydroxybutyrate. He was managed with insulingtt with endocrinology consultation, his gap closed and DKA resolved and is no transitioned to basal /bolus regimen. Review of Systems All other systems were reviewed and are negative except for that which is listed in the History of Present Illness. Past Medical History History reviewed. No pertinent past medical history. History reviewed. No pertinent surgical history. No current facility-administered medications on file prior to encounter. Current Outpatient Medications on File Prior to Encounter Medication Sig rowuexwihqbjl-czvznxq-qfdxlioi (EXCEDRIN MIGRAINE) 250-250-65 mg per tablet Take 1 tablet by mouth daily as needed for headaches or pain aspirin 325 mg tablet Take 2 tablets (650 mg total) by mouth daily as needed for pain or headaches doxycycline 100 mg capsule Take 1 tablet/capsule (100 mg total) by mouth 2 (two) times a day x 10 days traMADoL (ULTRAM) 50 mg tablet Take 1 tablet (50 mg total) by mouth every 6 (six) hours as needed for pain x 7 days No Known Allergies Social and Family History Social History Tobacco Use Smoking status: Never Smokeless tobacco: None Substance and Sexual Activity Drug use: None Sexual activity: None Alcohol Use: Not on file History reviewed. No pertinent family history. Objective Vitals Most Recent Vitals: T 36.7 ??C (98.1 ??F), HR 93, BP 152/81, RR 18, SpO2 95 %. 24hr Min/Max: Temp Min: 36.4 ??C (97.5 ??F) Max: 36.7 ??C (98.1 ??F) Pulse Min: 79 Max: 93 BP Min: 119/66 Max: 155/91 Resp Min: 0 Max: 20 SpO2 Min: 91 % Max: 99 % Intake/Output Summary (Last 24 hours) at 03/10/2023 2143 Last data filed at 03/10/2023 1531 Gross per 24 hour Intake 1030 ml Output 880 ml Net 150 ml Physical Exam Constitutional: NAD, well developed, well nourished Eyes: PERRL, EOMI, anicteric ENT: NCAT, oropharynx normal, moist mucus membranes Lungs: Clear to auscultation in all lung gonsalez, unlabored Cardiovascular: RRR, normal S1 and S2, no murmurs, no JVD GI: Soft, non-tender, non-distended, bowel sounds +, no organomegaly Skin: No new rashes, lesions or bruises on visible skin Extremities: Normal without edema or cyanosis Lymph: No cervical, supraclavicular, axillary or inguinal adenopathy Neurologic: AOx4, CNII-XII intact, normal strength and sensation Psychiatric: Normal affect and mood I have reviewed the patient's vital signs. Lines, Drains, Airways Peripheral IV 03/06/23 20 G Right Antecubital (Active) Peripheral IV 03/06/23 20 G Left Antecubital (Active) Peripheral IV 03/08/23 20 G Anterior;Distal;Right Forearm (Active) Urethral Catheter Straight-tip;Non-latex (Active) Labs/Diagnostic Review Na 137 Cl 101 BUN 11 K 4.2 CO2 28 Cr 0.56 Mg 1.7, G AST 25 ALT 16 Alk Phos 100 Ca 8.5 TP - Alb 2.2 Total Bili: 0.2 Direct Bili: - \ Hgb 11.2 / WBC 10.8 -------- Plt 328 / MCV 83.5 \ INR - (Labs above are the most recent result obtained in the last 24 hours. For additional labs/trends, see Epic.) I have reviewed the laboratory results. Imaging Review No results found. 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 Denied systemic symptoms on admission, noted to have leukocytosis with PMN predom and elevated inflammatory markers. CTAP w contrast: extensive soft tissue thickening throughout the scrotum extending towards the peroneal surface posteriorly, 7.5 cm subcutaneous fluid collection with air collections suggesting abscess, LN along iliac deanne chians and inguinal regions. S/p OR 9.29 with urology and ACCS for I&D of abscess and debridement. No tracking to rectum.S/p wound vac placement with urology. 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 Op cultures growing strep anginosus and mixed organisms. ID consulted and recommend treatment with unasyn. Plan: -continue unasyn -Urology following, per notes plan for return to OR on -wound care recs per urology Anemia Assessment & Plan Hgb 11.2 and BL 10-11. No signs of bleeding -CTM Hgb Diabetic foot ulcer (CMS/HCC) (HCC) Assessment & Plan S/p debridement with podiatry. L foot XR with no OM Vitamin D deficiency Assessment & Plan Undetectable Vit D Level -continue 5k units weekly x3 months. Will then have to be transitioned to low dose vit d Code status : Full Code Diet : Adult Diet Restricted; Consistent Carbohydrate Susan Epps MD * Jamari Whitfield MD - 03/10/2023 10:32 AM CDT Urology Progress Note Rene Hyatt : 1980 Subjective Interval History: Returned to OR today, minimal necrotic or infected appearing tissue Packed w antibiotic soaked gauze and covered w ABDs Objective Recent Vitals(24hr Range): Vitals: 03/10/23 0400 03/10/23 0500 03/10/23 0600 03/10/23 0700 BP: 147/74 155/81 147/80 138/78 BP Location: Left arm Left arm Left arm Left arm Patient Position: HOB 30 degrees HOB 30 degrees HOB 30 degrees HOB 30 degrees Pulse: 82 83 84 86 Resp: 17 (!) 7 13 (!) 0 Temp: 36.4 ??C (97.5 ??F) TempSrc: Oral SpO2: 98% 96% 95% 95% Weight: Height: I and Os: I/O last 3 completed shifts: In: 1433 [P.O.:480; IV Piggyback:953] Out: 3350 [Urine:2600; Emesis/NG output:100; Drains:400; Stool:250] I/O this shift: In: 200 [I.V.:200] Out: 5 [Blood:5] Physical Exam: Constitutional: Appears comfortable. No acute distress. Resp: Good inspiratory effort, symmetric chest wall movements CVS: Regular rate and rhythm. Abdomen: Soft, non distended Genitourinary: foleyw clear yellow urine, wound packed Skin: warm, well perfused Assessment Rene Hyatt is a 42 y.o. male s/p Procedure(s): DEBRIDEMENT PERINEAL WOUND Plan - Plan to return to OR on - Anticipate we can at least partially close at that point - Disposition will be to medicine floor bed when ready to leave the unit, we will follow - OK to repack wound w dakin's or vashe soaked kerlix if dressing gets soiled or falls out - Please order Vashe to be at bedside for dressing changes Please do not hesitate to contact the urology team with any questions or concerns. Jamari Whitfield MD 03/10/2023 Cosigned by Hans Negron MD at 03/10/2023 10:42 AM CDT Associated attestation - Hans Negron MD - 03/10/2023 10:42 AM CDT I have seen and examined the patient on 03/10/23. I agree with the findings and plan of care as documented in the resident's/fellow's note.. * Murray Flores OT - 03/10/2023 8:08 AM CDT Occupational Therapy 03/10/23 0806 General OT Missed Visit Reason MD/RN Hold;Procedure/testing/appointment (Medical cancel: in the OR) * Marcos Browne, TEJINDER - 03/10/2023 7:32 AM CDTAssociated Order(s): Critical Care Post-Procedure Diagnose(s): Scrotal abscess Surgical ICU Daily Progress Team: OTHER [place] 2 AM Subjective Patient is a 42 y.o. male admitted on 03/06/2023 10:24 AM with chief complaint of DKA. HPI 42 y/o M presented to OSH with scrotal swelling (Yamila's gangrene) c/f soft tissue infection andulcer on left foot. 03/06:OR I/D scrotum to perirectal area, packed with Dakins, 1.8L crystalloid, 50EBL, abx, Insulin gtt-7800 SICU on insulin gtt only 03/07 OR (Urology) debridement, vac placement Interval History: -Returned from OR during rounds, signout received from surgery, no issues/acute events -Per surgery, tentative plan to RTOR -TTF medicine, Urology spoke/clarified with MTA -start CC diet, patient has good appetite postop -resume DVT chemoppx -Monitor OR cultures including todays -Check BMP, CBC tonight -Signout called for medicine transfer at 1515 Objective Physical Exam: General: No Acute Distress Neuro: A&Ox4, follows commands, MAEW Cardiac: S1 and S2, RRR, no M/G/R Pulmonary: Lungs clear to auscultation, respirations even/unlabored Abdominal: Soft/Nontender/Nondistended, hypoactive bowel sounds Extremities: No edema, PPP, warm, pink Drains: Min with clear yellow output, perineal vac with serosanguinous output, Medications Scheduled Meds:acetaminophen, 1,000 mg, oral, Q6H ASTON ampicillin-sulbactam, 3 g, intravenous, Q6H ASTON calcium carbonate, 400 mg of elemental calcium, oral, Daily docusate sodium, 100 mg, oral, BID Or docusate, 100 mg, feeding tube, BID enoxaparin, 40 mg, subcutaneous, Q12H ASTON ergocalciferol, 50,000 Units, oral, Weekly ertapenem, 1,000 mg, intravenous, Once insulin glargine, 20 Units, subcutaneous, Nightly insulin lispro, 0-10 Units, subcutaneous, TID with meals insulin lispro, 0-5 Units, subcutaneous, Nightly insulin lispro, 6 Units, subcutaneous, TID with meals senna, 1 tablet, oral, Daily Continuous Infusions: PRN Meds:. dextrose OR dextrose glucagon ondansetron oxyCODONE prochlorperazine Vital signs for last 24 hours: Temp: [36.4 ??C (97.5 ??F)-37.1 ??C (98.8 ??F)] 36.4 ??C (97.5 ??F) Pulse: [79-93] 84 BP: (125-155)/(69-81) 147/80 Resp: [7-19] 13 SpO2: [94 %-100 %] 95 % Hemodynamics: MAP (mmHg): [89-101] 98 Pulmonary Support: O2 Therapy: None (Room air) O2 Del Method: Nasal cannula O2 Flow Rate (L/min): 1 L/min Intake/Output: Intake/Output Summary (Last 24 hours) at 03/10/2023 0732 Last data filed at 03/10/2023 0400 Gross per 24 hour Intake 330 ml Output 1675 ml Net -1345 ml Lab/Radiology/Diagnostic Review: Laboratory review: reviewed the laboratory result(s) in the last 24 hours Recent Results (from the past 24 hour(s)) POCT glucose Collection Time: 03/09/23 7:34 AM Result Value Ref Range Glucose, POC 181 70 - 199 mg/dL POCT glucose Collection Time: 03/09/23 11:26 AM Result Value Ref Range Glucose, POC 194 70 - 199 mg/dL POCT glucose Collection Time: 03/09/23 4:55 PM Result Value Ref Range Glucose, POC 189 70 - 199 mg/dL Calcium, ionized, whole blood Collection Time: 03/09/23 9:07 PM Result Value Ref Range Ca, ionized, bld 4.86 4.50 - 5.10 mg/dL POCT glucose Collection Time: 03/09/23 9:15 PM Result Value Ref Range Glucose, POC 186 70 - 199 mg/dL Comprehensive metabolic panel Collection Time: 03/09/23 9:42 PM Result Value Ref Range Sodium 137 135 - 145 mmol/L Potassium, pl 4.2 3.3 - 4.9 mmol/L Chloride 101 97 - 110 mmol/L CO2 28 22 - 32 mmol/L Anion gap 8 2 - 15 mmol/L BUN 11 6 - 25 mg/dL Creatinine 0.56 (L) 0.80 - 1.30 mg/dL Glucose 184 70 - 199 mg/dL Calcium 8.5 8.5 - 10.3 mg/dL Bilirubin, total 0.2 0.1 - 1.2 mg/dL Protein, pl 5.4 (L) 6.5 - 8.5 g/dL Albumin 2.2 (L) 3.5 - 5.0 g/dL Alk phos 100 40 - 130 Units/L ALT 16 7 - 55 Units/L AST 25 10 - 50 Units/L Magnesium Collection Time: 03/09/23 9:42 PM Result Value Ref Range Magnesium 1.7 1.4 - 2.5 mg/dL Phosphorus Collection Time: 03/09/23 9:42 PM Result Value Ref Range Phosphorus, pl 2.8 2.3 - 4.5 mg/dL PTH Collection Time: 03/09/23 9:42 PM Result Value Ref Range PTH 12 (L) 15 - 65 pg/mL eGFR Collection Time: 03/09/23 9:42 PM Result Value Ref Range eGFR >90 90 - 130 mL/min/1.73 m2 CBC with auto differential Collection Time: 03/10/23 12:14 AM Result Value Ref Range WBC 10.8 (H) 3.8 - 9.9 K/cumm Hgb 11.2 (L) 13.0 - 17.5 g/dL Hct 33.8 (L) 38.9 - 50.3 % Plt 328 150 - 400 K/cumm MPV 9.1 9.1 - 12.3 fL RBC 4.05 (L) 4.30 - 5.80 M/cumm MCV 83.5 81.3 - 96.4 fL MCH 27.7 27.1 - 33.3 pg MCHC 33.1 32.3 - 35.7 g/dL RDW CV 12.9 11.1 - 14.9 % RDW SD 39.2 35.7 - 48.1 fL NRBC abs 0.00 0.00 - 0.01 K/cumm Differential, auto Collection Time: 03/10/23 12:14 AM Result Value Ref Range Neutrophil abs 6.9 (H) 1.7 - 6.5 K/cumm Imm gran abs 0.4 (H) 0.0 - 0.1 K/cumm Lymphocyte abs 2.4 0.8 - 3.3 K/cumm Monocyte abs 0.8 0.2 - 0.8 K/cumm Eosinophil abs 0.2 0.0 - 0.5 K/cumm Basophil abs 0.1 0.0 - 0.1 K/cumm Neutrophil pct 63.8 % Imm gran pct 3.4 % Lymphocyte pct 22.3 % Monocyte pct 7.8 % Eosinophil pct 2.1 % Basophil pct 0.6 % No results found. Assessment/Plan Principal Problem: Scrotal abscess Active Problems: Yamila's gangrene NEURO: #Acute Pain: -Currently denies -APAP aston -PRN Oxy 1st line CV: -hemodynamically unsupported PULM: -returned from OR on simple face mask oxygen, able to go to RA immediately, keeping spo2 >92% GI: Diet: consistent carb Bowel regimen: Doc/Senna #Nausea/vomiting -noted 10 am, resolved as of 03/10 -PRN zofran IV 1st line -PRN compazine IV 2nd line ENDO: #Diabetes POA, new diagnosis c/b DKA -recycling attendant consulted -endocrine diabetes consulted -SSI, mealtime lispo 6u w/ hold parameters and lantus 20u qhs #Vitamin D deficiency -Started on 50k units weekly -Endo recs 50k units weekly x3 months, then maintenance w/ 2000 units daily RENAL: Cr Lab Results Component Value Date CREATININE 0.56 (L) 03/09/2023 -currently with adequate UOP continue to monitor closely HEME: #ABLA Lab Results Component Value Date HGB 11.2 (L) 03/10/2023 -Keep active T+S for OR -No s/s bleeding, no indication for transfusion, continue to monitor closely ID: #Leukocytosis with #Fourniers gangrene/ POA Lab Results Component Value Date WBC 10.8 (H) 03/10/2023 S/p OR 03/06 with ACES/EGS and Urology for rectal, perineal and scrotal debridement -OR 03/07 for further debridement with urology, vac placed, Cx sent -OR 03/10 for debridement and partial closure w/ VAC, Cx sent -OK to repack wound w/ dakin's or vashe soaked kerlix if dressing gets soiled or falls out -Vashe ordered for dressing changes -plan to return to OR Thursday to takedown vac and debride further, -ID following -follow cultures Antibiotics: Vanc, Martha -> changed to cefazolin 03/09 in line w/ ID rec Cultures: 03/10 Scrotum- pending 03/06 perineum/scrotum- Step anginosis (shelley jose) and mixed aerobic and anaerobic orgs, final cx pending 03/06 blood- ngtd 03/06 UA- negative MSK: #LEFT Foot ulcer POA -podiatry following -Arterial duplex's complete Intensive Care Unit Standards of Care: DVT prophylaxis: SCDs, lovenox Vascular access: PIVs Goals of care: FULL CODE Marcos Browne NP Critical Care Performed by: Marcos Browne NP Authorized by: Marcos Browne NP CRITICAL CARE: Team: OTHER Shift: AM Level of Billing: Subsequent Hospital Visit Level 3 My time spent with this patient was 70 minutes: Critical Provider Statement: I have seen and examined the patient on this day of service. I have reviewed and confirmed the history, physical exam, laboratory, and radiographic data as documented in the ICU note. I have reviewed and discussed my treatment plan with the patient's team and other medical/corporate consultant staff. This time was in addition to and separate from care provided by other practitioners on this day of service. Cosigned by Ursula Ferro MD at 03/10/2023 5:16 PM CDT * Matheus Frias PA - 03/09/2023 8:22 PM CDTAssociated Order(s): Critical Care Post-Procedure Diagnose(s): Perineal abscess Images from the original note were not included. ICU History and Physical Team: Other PM Subjective Patient is a 42 y.o. male presented to the ICU with chief complaint of necrotizing skin infection. Events: -NPO [place] -reinforced [place] -OR in am -PTH 12-f/u endocrinology - Reviewed and ordered pertinent laboratory tests. Reviewed any Radiological imaging pertinent to patients current treatments. Constant evaluation of I/O's, vitals and oxygen requirements throughout shift. Multiple bedside evaluations of patients over all status. HPI: 42 y/o M presented to OSH with scrotal swelling (Yamila's gangrene) c/f soft tissue infection andulcer on left foot. 03/06:OR I/D scrotum to perirectal area, packed with Dakins, 1.8L crystalloid, 50EBL, abx, Insulin gtt. 03/07: OR I/D, wound vac History reviewed. No pertinent past medical history. History reviewed. No pertinent surgical history. Medications Prior to Admission Medication Sig Dispense Refill Last Dose yyibovkieidnf-jpebdhb-xdvugguy (EXCEDRIN MIGRAINE) 250-250-65 mg per tablet Take 1 tablet by mouth daily as needed for headaches or pain aspirin 325 mg tablet Take 2 tablets (650 mg total) by mouth daily as needed for pain or headaches doxycycline 100 mg capsule Take 1 tablet/capsule (100 mg total) by mouth 2 (two) times a day x 10 days traMADoL (ULTRAM) 50 mg tablet Take 1 tablet (50 mg total) by mouth every 6 (six) hours as needed for pain x 7 days No Known Allergies Social History Tobacco Use Smoking status: Never Smokeless tobacco: None Substance and Sexual Activity Drug use: None Sexual activity: None Alcohol Use: Not on file History reviewed. No pertinent family history. Review of Systems: All review of systems are negative except for buttock pain Vitals: Most Recent : Vitals: 03/09/23 1900 BP: Pulse: 88 Resp: 19 Temp: SpO2: 98% Hemodynamics: MAP (mmHg): [86-99] 97 Intake/Output: Date 03/08/231899 - 03/09/2359 03/09/23 0700 - 03/10/23 0659 Shift 4418-4343 24 Hour Total 2407-3388 2817-7762 24 Hour Total INTAKE P.O. 480 960 I.V.(mL/kg) 222(1.4) IV Piggyback 100 1004 633 633 Shift Total(mL/kg) 580(3.6) 2186(13.5) 633(3.9) 633(3.9) OUTPUT Urine(mL/kg/hr) 1025 1875 1325(0.7) 1325 Emesis/NG output 100 100 Drains 400 400 Stool 250 250 Shift Total(mL/kg) 1275(7.9) 2125(13.1) 1725(10.7) 100(0.6) 1825(11.3) NET -695 19 -5442 -100 -1192 Weight (kg) 161.7 161.7 161.7 161.7 161.7 Objective Physical exam: Gen: NAD Neuro: A&Ox3, non-focal, follows commands, MAEW HEENT: Head NC/AT, face symmetrical, PERRLA CV: S1 and S2 without M/C/R, RRR Pulm: LCTA, respirations even/unlabored GI: Abdomen Obese Soft/NT/ND, normoactive bowel sounds : Min to gravity Skin: Warm, dry, good turgor, rectal area [place] Extremities: No edema, PPP Wounds: [place], L foot wrapped with Kerlix Access: PIC Lab/Radiology/Diagnostic Review: Laboratory review: Lab results in the last 24 hours: Recent Results (from the past 24 hour(s)) Basic metabolic panel Collection Time: 03/08/23 8:59 PM Result Value Ref Range Sodium 138 135 - 145 mmol/L Potassium, pl 4.0 3.3 - 4.9 mmol/L Chloride 103 97 - 110 mmol/L CO2 26 22 - 32 mmol/L Anion gap 9 2 - 15 mmol/L BUN 10 6 - 25 mg/dL Creatinine 0.60 (L) 0.80 - 1.30 mg/dL Glucose 215 (H) 70 - 199 mg/dL Calcium 8.0 (L) 8.5 - 10.3 mg/dL CBC without differential Collection Time: 03/08/23 8:59 PM Result Value Ref Range WBC 10.9 (H) 3.8 - 9.9 K/cumm Hgb 10.5 (L) 13.0 - 17.5 g/dL Hct 32.9 (L) 38.9 - 50.3 % Plt 302 150 - 400 K/cumm MPV 9.0 (L) 9.1 - 12.3 fL RBC 3.91 (L) 4.30 - 5.80 M/cumm MCV 84.1 81.3 - 96.4 fL MCH 26.9 (L) 27.1 - 33.3 pg MCHC 31.9 (L) 32.3 - 35.7 g/dL RDW CV 13.3 11.1 - 14.9 % RDW SD 40.9 35.7 - 48.1 fL NRBC abs 0.00 0.00 - 0.01 K/cumm Vitamin D 25 hydroxy Collection Time: 03/08/23 8:59 PM Result Value Ref Range Vitamin D 25-OH <6 (L) 30 - 80 ng/mL eGFR Collection Time: 03/08/23 8:59 PM Result Value Ref Range eGFR >90 90 - 130 mL/min/1.73 m2 POCT glucose Collection Time: 03/09/23 12:06 AM Result Value Ref Range Glucose, POC 187 70 - 199 mg/dL POCT glucose Collection Time: 03/09/23 3:29 AM Result Value Ref Range Glucose, POC 182 70 - 199 mg/dL POCT glucose Collection Time: 03/09/23 7:34 AM Result Value Ref Range Glucose, POC 181 70 - 199 mg/dL POCT glucose Collection Time: 03/09/23 11:26 AM Result Value Ref Range Glucose, POC 194 70 - 199 mg/dL POCT glucose Collection Time: 03/09/23 4:55 PM Result Value Ref Range Glucose, POC 189 70 - 199 mg/dL Recent Results (from the past 12 hour(s)) POCT glucose Collection Time: 03/09/23 11:26 AM Result Value Ref Range Glucose, POC 194 70 - 199 mg/dL POCT glucose Collection Time: 03/09/23 4:55 PM Result Value Ref Range Glucose, POC 189 70 - 199 mg/dL No results found. Assessment /Plan Principal Problem: Scrotal abscess Active Problems: Yamila's gangrene Plan of Care: NEURO: #Acute on Chronic Pain: -holding home tramadol -APAP aston -oxycodone 5 mg prn Overall CAM-ICU: Negative (03/09/23 0710) CV: -Stable PULM: Pulmonary Support: O2 Therapy: None (Room air) O2 Del Method: Nasal cannula O2 Flow Rate (L/min): 1 L/min GI: Diet: Sips with meds Bowel regimen:doc/senna 03/08: Dignicare placed #Hypoalbuminemia: POA #Obesity: POA -BMI 39. 7 -consult nutrition and DM investment analyst ENDO: #Hyperglycemia:POA #DKA: POA -AGMA on admission, +2 ketones in urine, BG > 300 -03/06: Beta hydroxybutyrate +0.9 after resuscitation and on gtt #New onset Diabetes: -HbA1C 13.3 -c/s endocrinology -c/s to DM education -insulin gtt d/c'd 03/08 -NPH 8u q 8 + slide -when starts eating will need a scheduled lispro with meals + slide #Severe Vitamin D deficiency:POA -level <6 -Start 50K international units Vit D weekly x 6 weeks -after six weeks start on daily Vit D -Check PTH levels #Hypocalcemia: -POA -03/08 3g Ca gluconate - added TUMS daily can consider adding D+C tablet when levels stable. : #Soft Tissue Skin infection: POA #Yamila's Gangrene:POA -urology/ACCS following OR: 03/06, 03/07, plan for OR 03/09 -Wound Vac -follow Cx -Abx RENAL: Lab Results Component Value Date CREATININE 0.60 (L) 03/08/2023 #Hyponatremia:POA -likely pseudohyponatremia 2/2 hyperglycemia #Hypocalcemia:POA -when calculated with albumin -continue to replace HEME: #ABLA: -2/2 skin infection requiring OR #AOCD:POA Lab Results Component Value Date HGB 10.5 (L) 03/08/2023 -No s/s bleeding, no indication for transfusion, continue to monitor closely #Coagulopathy: POA -elevated INR -likely 2/2 poor nutritional state/infection ID: #Leukocytosis:POA #Soft tissue Skin Infection:POA -24h Clinda complete -Vanc complete 03/08 -Martha Lab Results Component Value Date WBC 10.9 (H) 03/08/2023 #Diabetic Foot ulcers:POA -2 ulcers on L foot -c/s podiatry -continue abx -Xrays on admission no osteo however if concern MRI is test of choice -03/07 Debrided by podiatry dry sterile dressing consisting of betadine, 4x4s, kerlix. - Wound care: recommend daily betadine paint and dry sterile dressing - Weight bearing status: WBAT in heel strike shoe per PT - Advised diabetic shoes with custom offloading inserts for basketballs and footballs reverser sheogear 03/07:Duplex imaging of the bilateral lower extremity [place] arteries reveals patent vessels with no flow limiting lesions identified Culture Results: No data to display Lab Results Component Value Date MICROBIOLOGY (.) 03/06/2023 Preliminary Report: Moderate Streptococcus anginosus For susceptibility results, refer to accession number [id number] on the scrotum tissue culture from 03/06/2023 Few Mixed aerobic and anaerobic microorganisms MICROBIOLOGY (.) 03/06/2023 Preliminary Report: Moderate Streptococcus anginosus Few Mixed aerobic and anaerobic microorganisms MICROBIOLOGY (.) 03/06/2023 Preliminary Report: Abundant Streptococcus anginosus For susceptibility results, refer to accession number [id number] on the scrotum tissue culture from 03/06/2023 Few Mixed aerobic and anaerobic microorganisms MICROBIOLOGY Preliminary Report: No growth to date. 03/06/2023 MICROBIOLOGY Preliminary Report: No growth to date. 03/06/2023 Assessment and plan has been reviewed with the Critical Care Fellow who reviewed the plan with the SICU attending. Matheus Frias PA-C Critical Care Performed by: Matheus Frias PA Authorized by: Matheus Frias PA CRITICAL CARE: Team: OTHER Shift: PM Level of Billing: Subsequent Hospital Visit Level 3 My time spent with this patient was 60 minutes: Critical Provider Statement: I have seen and examined the patient on this day of service. I have reviewed and confirmed the history, physical exam, laboratory, and radiographic data as documented in the ICU note. I have reviewed and discussed my treatment plan with the patient's team and other medical/corporate consultant staff. This time was in addition to and separate from care provided by other practitioners on this day of service. * Marcos Browne NP - 03/09/2023 7:52 AM CDTAssociated Order(s): Critical Care Post-Procedure Diagnose(s): Scrotal abscess Surgical ICU Daily Progress Team: [facility] 2 AM Subjective Patient is a 42 y.o. male admitted on 03/06/2023 10:24 AM with chief complaint of DKA. HPI 42 y/o M presented to OSH with scrotal swelling (Yamila's gangrene) c/f soft tissue infection andulcer on left foot. 03/06:OR I/D scrotum to perirectal area, packed with Dakins, 1.8L crystalloid, 50EBL, abx, Insulin gtt-7800 SICU on insulin gtt only 03/07 OR (Urology) debridement, vac placement Interval History: -Nausea w/ vomiting this am, start PRN ondansetron IV first line, PRN IV chlorperazine 2nd line -Consult ID at surgical team request, appreciate recs -Deescalate vanco/martha to Unasyn -OR tomorrow for exploration and possible partial wound closure. NPO at NH, T+S tonight -Wound care consulted for assistance w/ VAC and FMS/stool management given repeated takedowns overnight. Would prefer to keep VAC til OR tomorrow but wet to dry is acceptable -Add mealtime insulin 6u and transition NPH to lantus 20u nightly Objective Physical Exam: General: No Acute Distress Neuro: A&Ox4, follows commands, MAEW Cardiac: S1 and S2, RRR, no M/G/R Pulmonary: Lungs clear to auscultation, respirations even/unlabored Abdominal: Soft/Nontender/Nondistended, hypoactive bowel sounds Extremities: No edema, PPP, warm, pink Drains: Min with clear yellow output, perineal vac with serosanguinous output, fecal management tube w/ liquid brown stool Medications Scheduled Meds:acetaminophen, 1,000 mg, oral, Q6H ASTON calcium carbonate, 400 mg of elemental calcium, oral, Daily docusate sodium, 100 mg, oral, BID Or docusate, 100 mg, feeding tube, BID enoxaparin, 40 mg, subcutaneous, Daily-2100 ergocalciferol, 50,000 Units, oral, Weekly insulin lispro, 0-10 Units, subcutaneous, Q4H ASTON insulin NPH, 8 Units, subcutaneous, Q8H meropenem, 2,000 mg, intravenous, Q8H ASTON senna, 1 tablet, oral, Daily vancomycin, 15 mg/kg, intravenous, Q12H Continuous Infusions: PRN Meds:. oxyCODONE Vital signs for last 24 hours: Temp: [36.5 ??C (97.7 ??F)-37.1 ??C (98.8 ??F)] 37.1 ??C (98.7 ??F) Pulse: [85-97] 86 BP: (120-160)/(64-84) 154/78 Resp: [13-24] 18 SpO2: [94 %-100 %] 97 % Hemodynamics: MAP (mmHg): [82-104] 99 Pulmonary Support: O2 Therapy: None (Room air) O2 Del Method: Nasal cannula O2 Flow Rate (L/min): 1 L/min Intake/Output: Intake/Output Summary (Last 24 hours) at 03/09/2023 0753 Last data filed at 03/09/2023 0717 Gross per 24 hour Intake 2448 ml Output 2525 ml Net -77 ml Lab/Radiology/Diagnostic Review: Laboratory review: reviewed the laboratory result(s) in the last 24 hours Recent Results (from the past 24 hour(s)) POCT glucose Collection Time: 03/08/23 8:03 AM Result Value Ref Range Glucose, POC 145 70 - 199 mg/dL POCT glucose Collection Time: 03/08/23 9:06 AM Result Value Ref Range Glucose, POC 142 70 - 199 mg/dL POCT glucose Collection Time: 03/08/23 9:58 AM Result Value Ref Range Glucose, POC 147 70 - 199 mg/dL POCT glucose Collection Time: 03/08/23 12:03 PM Result Value Ref Range Glucose, POC 155 70 - 199 mg/dL POCT glucose Collection Time: 03/08/23 4:39 PM Result Value Ref Range Glucose, POC 152 70 - 199 mg/dL POCT glucose Collection Time: 03/08/23 7:34 PM Result Value Ref Range Glucose, POC 194 70 - 199 mg/dL Basic metabolic panel Collection Time: 03/08/23 8:59 PM Result Value Ref Range Sodium 138 135 - 145 mmol/L Potassium, pl 4.0 3.3 - 4.9 mmol/L Chloride 103 97 - 110 mmol/L CO2 26 22 - 32 mmol/L Anion gap 9 2 - 15 mmol/L BUN 10 6 - 25 mg/dL Creatinine 0.60 (L) 0.80 - 1.30 mg/dL Glucose 215 (H) 70 - 199 mg/dL Calcium 8.0 (L) 8.5 - 10.3 mg/dL CBC without differential Collection Time: 03/08/23 8:59 PM Result Value Ref Range WBC 10.9 (H) 3.8 - 9.9 K/cumm Hgb 10.5 (L) 13.0 - 17.5 g/dL Hct 32.9 (L) 38.9 - 50.3 % Plt 302 150 - 400 K/cumm MPV 9.0 (L) 9.1 - 12.3 fL RBC 3.91 (L) 4.30 - 5.80 M/cumm MCV 84.1 81.3 - 96.4 fL MCH 26.9 (L) 27.1 - 33.3 pg MCHC 31.9 (L) 32.3 - 35.7 g/dL RDW CV 13.3 11.1 - 14.9 % RDW SD 40.9 35.7 - 48.1 fL NRBC abs 0.00 0.00 - 0.01 K/cumm Vitamin D 25 hydroxy Collection Time: 03/08/23 8:59 PM Result Value Ref Range Vitamin D 25-OH <6 (L) 30 - 80 ng/mL eGFR Collection Time: 03/08/23 8:59 PM Result Value Ref Range eGFR >90 90 - 130 mL/min/1.73 m2 POCT glucose Collection Time: 03/09/23 12:06 AM Result Value Ref Range Glucose, POC 187 70 - 199 mg/dL POCT glucose Collection Time: 03/09/23 3:29 AM Result Value Ref Range Glucose, POC 182 70 - 199 mg/dL POCT glucose Collection Time: 03/09/23 7:34 AM Result Value Ref Range Glucose, POC 181 70 - 199 mg/dL No results found. Assessment/Plan Principal Problem: Scrotal abscess Active Problems: Perineal abscess NEURO: #Acute Pain: -Currently denies -APAP aston -PRN Oxy 1st line CV: -hemodynamically unsupported PULM: -currently on RA No active issues GI: Diet: consistent carb Bowel regimen: Doc/Senna #Nausea/vomiting -noted 102 am -PRN zofran IV 1st line -PRN compazine IV 2nd line ENDO: #Diabetes POA, new diagnosis c/b DKA -recycling attendant consulted -endocrine diabetes consulted -SSI, mealtime lispo 6u w/ hold parameters and lantus 20u qhs #Vitamin D deficiency -Started on 50k units weekly RENAL: Cr Lab Results Component Value Date CREATININE 0.60 (L) 03/08/2023 -currently with adequate UOP continue to monitor closely HEME: #ABLA Lab Results Component Value Date HGB 10.5 (L) 03/08/2023 -Keep active T+S for OR -No s/s bleeding, no indication for transfusion, continue to monitor closely ID: #Leukocytosis with #Fourniers gangrene/ POA Lab Results Component Value Date WBC 10.9 (H) 03/08/2023 S/p OR 03/06 with ACES/EGS and Urology for rectal, perineal and scrotal debridement -OR 03/07 for further debridement with urology, vac placed -plan to return to OR Thursday to takedown vac and debride further, will evaluate proximity to rectum at that time -ID following -follow cultures Antibiotics: Vanc, Martha -> changed to cefazolin 03/09 in line w/ ID rec Cultures: 03/06 perineum- Step anginosis (shelley jose) and mixed aerobic and anaerobic orgs, final cx pending 03/06 blood- ngtd 03/06 UA- negative MSK: #LEFT Foot ulcer POA -podiatry following -Arterial duplex's complete Intensive Care Unit Standards of Care: DVT prophylaxis: SCDs, lovenox Vascular access: PIVs Goals of care: FULL CODE Marcos Browne NP Critical Care Performed by: Marcos Browne NP Authorized by: Marcos Browne NP CRITICAL CARE: Team: OTHER Shift: AM Level of Billing: Subsequent Hospital Visit Level 3 My time spent with this patient was 60 minutes: Critical Provider Statement: I have seen and examined the patient on this day of service. I have reviewed and confirmed the history, physical exam, laboratory, and radiographic data as documented in the ICU note. I have reviewed and discussed my treatment plan with the patient's team and other medical/corporate consultant staff. This time was in addition to and separate from care provided by other practitioners on this day of service. Cosigned by Ursula Ferro MD at 03/10/2023 6:04 AM CDT * aJmes Lai MD - 03/09/2023 6:28 AM CDT INPATIENT UROLOGY PROGRESS NOTE 03/09/2023 Rene Hyatt is a 42 y.o. male on Hospital Day: 4 and 2 Days Post-Op s/p incision and drainageof perineum and scrotum SUBJECTIVE: 24h Interval History: NAEON. VSS and AF. Early this morning, patient had stool leak into the wound vac. He is no longer on insulin gtt, no pressor support needed. Patient had no acute complaints this morning. Pain is well controlled with oral and IV meds . he julia a Adult Diet Restricted; Consistent Carbohydrate; No juice on tray. We discussed general OR findings with the patient who expressed understanding. His wound vac has been complicated by fecal content leaking from around both internal and external fecal management devices. We discussed the option of partial wound closure. OBJECTIVE: Current Facility-Administered Medications: acetaminophen (TYLENOL) tablet 1,000 mg, 1,000 mg, oral, Q6H ASTON, Matheus Frias PA, 1,000 mg at 03/09/23522 calcium carbonate (TUMS) chewable tablet 1,000 mg, 400 mg of elemental calcium, oral, Daily, Matheus Frias PA docusate sodium (COLACE) capsule 100 mg, 100 mg, oral, BID, 100 mg at 03/08/232048 OR docusate(COLACE) 10 mg/mL oral liquid 100 mg, 100 mg, feeding tube, BID, Matheus Frias PA, 100 mg at 03/06/232116 enoxaparin (LOVENOX) syringe 40 mg, 40 mg, subcutaneous, Daily-2100, Matheus Frias PA, 40 mg at 03/08/232048 ergocalciferol (VITAMIN D) capsule 50,000 Units, 50,000 Units, oral, Weekly, Matheus Frais PA, 50,000 Units at 03/09/23 0008 insulin lispro (HumaLOG, ADMELOG) 100 unit/mL injection 0-10 Units, 0-10 Units, subcutaneous, Q4H [facility], Mckayla Iyer NP, 2 Units at 03/09/23 0333 insulin NPH (HumuLIN N, NovoLIN N) 100 unit/mL injection 8 Units, 8 Units, subcutaneous, Q8H, Mckayla Iyer NP, 8 Units at 03/09/23 0014 meropenem (MERREM) 2,000 mg/120 mL in sodium chloride 0.9% (premix) 2,000 mg, 2,000 mg, intravenous, Q8H [facility], Matheus Frias PA, Stopped at 03/09/23 0555 oxyCODONE (ROXICODONE) tablet 5 mg, 5 mg, oral, Q4H PRN, Deanna Thompson MD PhD, 5 mg at 03/08/23 1412 senna (SENOKOT) tablet 1 tablet, 1 tablet, oral, Daily, Matheus Frias PA, 1 tablet at 03/08/23 0815 vancomycin (VANCOCIN) 2,250 mg in sodium chloride 0.9% 500 mL IVPB, 15 mg/kg, intravenous, Q12H, Matheus Frias PA, Last Rate: 261.3 mL/hr at 03/09/23 0517, 2,250 mg at 03/09/23 0517 24hr Min/Max: Temp Min: 36.5 ??C (97.7 ??F) Max: 37.1 ??C (98.8 ??F) Pulse Min: 85 Max: 97 BP Min: 120/64 Max: 160/84 Resp Min: 13 Max: 24 SpO2 Min: 93 % Max: 100 % Most Recent: Vitals: 03/09/23 0600 BP: Pulse: 86 Resp: Temp: SpO2: 97% I/O last 2 completed shifts: In: 3430 [P.O.:1480; I.V.:946; IV Piggyback:1004] Out: 1675 [Urine:1625; Stool:50] I/O this shift: In: 580 [P.O.:480; IV Piggyback:100] Out: 1275 [Urine:1025; Stool:250] PE: GENERAL: Well-developed, well-nourished, appears stated age. Lying comfortably in bed, no acute distress HEENT: PERRL, sclerae anicteric. EOMI. Mucous membranes moist. RESPIRATORY: Symmetric chest wall expansion with normal respiratory effort. CARDIOVASCULAR: Well-perfused. GASTROINTESTINAL: Soft, non-tender, non-distended. No rebound or guarding : min with yellow urine with small amount of sediment and mucus Wounds: Rectal would packed, 1 deep unstagable ulcer on L base of MTP and on distal MTP. See wound note and podiatry c/s Lab/Radiology/Diagnostic Review: Laboratory review: Lab results in the last 12 hours: Recent Results (from the past 12 hour(s)) POCT glucose Collection Time: 03/08/23 7:34 PM Result Value Ref Range Glucose, POC 194 70 - 199 mg/dL Basic metabolic panel Collection Time: 03/08/23 8:59 PM Result Value Ref Range Sodium 138 135 - 145 mmol/L Potassium, pl 4.0 3.3 - 4.9 mmol/L Chloride 103 97 - 110 mmol/L CO2 26 22 - 32 mmol/L Anion gap 9 2 - 15 mmol/L BUN 10 6 - 25 mg/dL Creatinine 0.60 (L) 0.80 - 1.30 mg/dL Glucose 215 (H) 70 - 199 mg/dL Calcium 8.0 (L) 8.5 - 10.3 mg/dL CBC without differential Collection Time: 03/08/23 8:59 PM Result Value Ref Range WBC 10.9 (H) 3.8 - 9.9 K/cumm Hgb 10.5 (L) 13.0 - 17.5 g/dL Hct 32.9 (L) 38.9 - 50.3 % Plt 302 150 - 400 K/cumm MPV 9.0 (L) 9.1 - 12.3 fL RBC 3.91 (L) 4.30 - 5.80 M/cumm MCV 84.1 81.3 - 96.4 fL MCH 26.9 (L) 27.1 - 33.3 pg MCHC 31.9 (L) 32.3 - 35.7 g/dL RDW CV 13.3 11.1 - 14.9 % RDW SD 40.9 35.7 - 48.1 fL NRBC abs 0.00 0.00 - 0.01 K/cumm Vitamin D 25 hydroxy Collection Time: 03/08/23 8:59 PM Result Value Ref Range Vitamin D 25-OH <6 (L) 30 - 80 ng/mL eGFR Collection Time: 03/08/23 8:59 PM Result Value Ref Range eGFR >90 90 - 130 mL/min/1.73 m2 POCT glucose Collection Time: 03/09/23 12:06 AM Result Value Ref Range Glucose, POC 187 70 - 199 mg/dL POCT glucose Collection Time: 03/09/23 3:29 AM Result Value Ref Range Glucose, POC 182 70 - 199 mg/dL ASSESSMENT: Rene Hyatt is a 42 y.o. male with a perineal fluid collection/abscess and likely perineal/scrotal cellulitis, gas on CT scan. Explored 03/06 in OR and was found to have significant purulent fluid and necrotic tissue in perineum with anterior extension to inguinal canal, posteriorly extending to rectum without involvement. 03/07, he was taken back to OR for repeat debridement with wound vac placement and rectal tube placement. His stay in the ICU was prolonged by insulin drip requirements, now discontinued. PLAN - Referral to Social Work to assist with management of his home responsibilities; updated on 03/08 and patient states his mother has been transferred to a new facility for interim care - Maintain min for accurate I/Os - Continue wound management with wound vac - Consult Wound Nursing for management recs - Potential plan to take back to OR for partial closure of the perianal aspect - Acceptable to switch to Wet-to-Dry with Daikins or Vashe - Anticipate transfer to 6900 - Appreciate excellent ICU care James Lai MD Urology PGY-1 03/09/23 6:28 AM Cosigned by Hans Ulrich MD at 03/09/2023 11:48 AM CDT Associated attestation - AllenhurstHans MD - 03/09/2023 11:48 AM CDT I have seen and examined the patient on 03/09/23. I agree with the findings and plan of care as documented in the resident's/fellow's note.. * Matheus Frias PA - 03/08/2023 10:30 PM CDTAssociated Order(s): Critical Care Post-Procedure Diagnose(s): Perineal abscess Images from the original note were not included. ICU History and Physical Team: Other PM Subjective Patient is a 42 y.o. male presented to the ICU with chief complaint of necrotizing skin infection. Events: -reapplied w/v seal 2/2 stool -low Vit D level-started daily tx -add PTH -continued low Ca levels added TUMS daily - Reviewed and ordered pertinent laboratory tests. Reviewed any Radiological imaging pertinent to patients current treatments. Constant evaluation of I/O's, vitals and oxygen requirements throughout shift. Multiple bedside evaluations of patients over all status. HPI: 42 y/o M presented to OSH with scrotal swelling (Yamila's gangrene) c/f soft tissue infection andulcer on left foot. 03/06:OR I/D scrotum to perirectal area, packed with Dakins, 1.8L crystalloid, 50EBL, abx, Insulin gtt. 03/07: OR I/D, wound vac History reviewed. No pertinent past medical history. History reviewed. No pertinent surgical history. Medications Prior to Admission Medication Sig Dispense Refill Last Dose xsnrmmbwcxnes-[id number] (EXCEDRIN MIGRAINE) 250-250-65 mg per tablet Take 1 tablet by mouth daily as needed for headaches or pain aspirin 325 mg tablet Take 2 tablets (650 mg total) by mouth daily as needed for pain or headaches doxycycline 100 mg capsule Take 1 tablet/capsule (100 mg total) by mouth 2 (two) times a day x 10 days traMADoL (ULTRAM) 50 mg tablet Take 1 tablet (50 mg total) by mouth every 6 (six) hours as needed for pain x 7 days No Known Allergies Social History Tobacco Use Smoking status: Never Smokeless tobacco: None Substance and Sexual Activity Drug use: None Sexual activity: None Alcohol Use: Not on file History reviewed. No pertinent family history. Review of Systems: All review of systems are negative except for buttock pain Vitals: Most Recent : Vitals: 03/08/232034 BP: 145/70 Pulse: 95 Resp: 14 Temp: SpO2: 99% Hemodynamics: MAP (mmHg): [80-104] 91 Intake/Output: Date 03/07/231899 - 03/08/2365803/08/23699 - 03/09/23 0659 Shift 8765-8109 24 Hour Total 5616-1053 4249-0669 24 Hour Total INTAKE P.O. 1000 1000 480 480 I.V.(mL/kg) 724(4.5) 1631(10.1) 222(1.4) 222(1.4) IV Piggyback 100 1313 904 904 Shift Total(mL/kg) 1824(11.3) 3944(24.4) 1606(9.9) 1606(9.9) OUTPUT Urine(mL/kg/hr) 775 1170 850(0.4) 200 1050 Stool 50 50 0 0 Blood 10 Shift Total(mL/kg) 825(5.1) 1230(7.6) 850(5.3) 200(1.2) 1050(6.5) NET 999 2714 756 -200 556 Weight (kg) 161.7 161.7 161.7 161.7 161.7 Objective Physical exam: Gen: NAD Neuro: A&Ox3, non-focal, follows commands, MAEW HEENT: Head NC/AT, face symmetrical, PERRLA CV: S1 and S2 without M/C/R, RRR Pulm: LCTA, respirations even/unlabored GI: Abdomen Obese Soft/NT/ND, normoactive bowel sounds : Min to gravity Skin: Warm, dry, good turgor Extremities: No edema, PPP Wounds: [place], L foot wrapped with Kerlix Access: PIC Lab/Radiology/Diagnostic Review: Laboratory review: Lab results in the last 24 hours: Recent Results (from the past 24 hour(s)) POCT glucose Collection Time: 03/07/23 10:43 PM Result Value Ref Range Glucose, POC 125 70 - 199 mg/dL POCT glucose Collection Time: 03/08/23 12:51 AM Result Value Ref Range Glucose, POC 137 70 - 199 mg/dL POCT glucose Collection Time: 03/08/23 2:56 AM Result Value Ref Range Glucose, POC 152 70 - 199 mg/dL POCT glucose Collection Time: 03/08/23 5:19 AM Result Value Ref Range Glucose, POC 171 70 - 199 mg/dL Vancomycin level random Collection Time: 03/08/23 5:31 AM Result Value Ref Range Vancomycin random 18.9 mcg/mL POCT glucose Collection Time: 03/08/23 6:59 AM Result Value Ref Range Glucose, POC 146 70 - 199 mg/dL POCT glucose Collection Time: 03/08/23 8:03 AM Result Value Ref Range Glucose, POC 145 70 - 199 mg/dL POCT glucose Collection Time: 03/08/23 9:06 AM Result Value Ref Range Glucose, POC 142 70 - 199 mg/dL POCT glucose Collection Time: 03/08/23 9:58 AM Result Value Ref Range Glucose, POC 147 70 - 199 mg/dL POCT glucose Collection Time: 03/08/23 12:03 PM Result Value Ref Range Glucose, POC 155 70 - 199 mg/dL POCT glucose Collection Time: 03/08/23 4:39 PM Result Value Ref Range Glucose, POC 152 70 - 199 mg/dL POCT glucose Collection Time: 03/08/23 7:34 PM Result Value Ref Range Glucose, POC 194 70 - 199 mg/dL Basic metabolic panel Collection Time: 03/08/23 8:59 PM Result Value Ref Range Sodium 138 135 - 145 mmol/L Potassium, pl 4.0 3.3 - 4.9 mmol/L Chloride 103 97 - 110 mmol/L CO2 26 22 - 32 mmol/L Anion gap 9 2 - 15 mmol/L BUN 10 6 - 25 mg/dL Creatinine 0.60 (L) 0.80 - 1.30 mg/dL Glucose 215 (H) 70 - 199 mg/dL Calcium 8.0 (L) 8.5 - 10.3 mg/dL CBC without differential Collection Time: 03/08/23 8:59 PM Result Value Ref Range WBC 10.9 (H) 3.8 - 9.9 K/cumm Hgb 10.5 (L) 13.0 - 17.5 g/dL Hct 32.9 (L) 38.9 - 50.3 % Plt 302 150 - 400 K/cumm MPV 9.0 (L) 9.1 - 12.3 fL RBC 3.91 (L) 4.30 - 5.80 M/cumm MCV 84.1 81.3 - 96.4 fL MCH 26.9 (L) 27.1 - 33.3 pg MCHC 31.9 (L) 32.3 - 35.7 g/dL RDW CV 13.3 11.1 - 14.9 % RDW SD 40.9 35.7 - 48.1 fL NRBC abs 0.00 0.00 - 0.01 K/cumm Vitamin D 25 hydroxy Collection Time: 03/08/23 8:59 PM Result Value Ref Range Vitamin D 25-OH <6 (L) 30 - 80 ng/mL eGFR Collection Time: 03/08/23 8:59 PM Result Value Ref Range eGFR >90 90 - 130 mL/min/1.73 m2 Recent Results (from the past 12 hour(s)) POCT glucose Collection Time: 03/08/23 12:03 PM Result Value Ref Range Glucose, POC 155 70 - 199 mg/dL POCT glucose Collection Time: 03/08/23 4:39 PM Result Value Ref Range Glucose, POC 152 70 - 199 mg/dL POCT glucose Collection Time: 03/08/23 7:34 PM Result Value Ref Range Glucose, POC 194 70 - 199 mg/dL Basic metabolic panel Collection Time: 03/08/23 8:59 PM Result Value Ref Range Sodium 138 135 - 145 mmol/L Potassium, pl 4.0 3.3 - 4.9 mmol/L Chloride 103 97 - 110 mmol/L CO2 26 22 - 32 mmol/L Anion gap 9 2 - 15 mmol/L BUN 10 6 - 25 mg/dL Creatinine 0.60 (L) 0.80 - 1.30 mg/dL Glucose 215 (H) 70 - 199 mg/dL Calcium 8.0 (L) 8.5 - 10.3 mg/dL CBC without differential Collection Time: 03/08/23 8:59 PM Result Value Ref Range WBC 10.9 (H) 3.8 - 9.9 K/cumm Hgb 10.5 (L) 13.0 - 17.5 g/dL Hct 32.9 (L) 38.9 - 50.3 % Plt 302 150 - 400 K/cumm MPV 9.0 (L) 9.1 - 12.3 fL RBC 3.91 (L) 4.30 - 5.80 M/cumm MCV 84.1 81.3 - 96.4 fL MCH 26.9 (L) 27.1 - 33.3 pg MCHC 31.9 (L) 32.3 - 35.7 g/dL RDW CV 13.3 11.1 - 14.9 % RDW SD 40.9 35.7 - 48.1 fL NRBC abs 0.00 0.00 - 0.01 K/cumm Vitamin D 25 hydroxy Collection Time: 03/08/23 8:59 PM Result Value Ref Range Vitamin D 25-OH <6 (L) 30 - 80 ng/mL eGFR Collection Time: 03/08/23 8:59 PM Result Value Ref Range eGFR >90 90 - 130 mL/min/1.73 m2 No results found. Assessment /Plan Principal Problem: Scrotal abscess Active Problems: Perineal abscess Plan of Care: NEURO: #Acute on Chronic Pain: -holding home tramadol -APAP aston -oxycodone 5 mg prn Overall CAM-ICU: Negative (03/08/23 0815) CV: -Stable PULM: Pulmonary Support: O2 Therapy: None (Room air) O2 Del Method: Nasal cannula O2 Flow Rate (L/min): 1 L/min GI: Diet: Sips with meds Bowel regimen:doc/senna 03/08: Dignicare placed #Hypoalbuminemia: POA #Obesity: POA -BMI 39. 7 -consult nutrition and DM investment analyst ENDO: #Hyperglycemia:POA #DKA: POA -AGMA on admission, +2 ketones in urine, BG > 300 -03/06: Beta hydroxybutyrate +0.9 after resuscitation and on gtt #New onset Diabetes: -HbA1C 13.3 -c/s endocrinology -c/s to DM education -insulin gtt d/c'd 03/08 -NPH 8u q 8 + slide -when starts eating will need a scheduled lispro with meals + slide #Severe Vitamin D deficiency:POA -level <6 -Start 50K international units Vit D weekly x 6 weeks -after six weeks start on daily Vit D -Check PTH levels #Hypocalcemia: -POA -10/1 3g Ca gluconate - added TUMS daily can consider adding D+C tablet when levels stable. : #Soft Tissue Skin infection: POA #Yamila's Gangrene:POA -urology/ACCS following OR: 03/06, 03/07 -Wound Vac -follow Cx -Abx RENAL: Lab Results Component Value Date CREATININE 0.60 (L) 03/08/2023 #Hyponatremia:POA -likely pseudohyponatremia 2/2 hyperglycemia #Hypocalcemia:POA -when calculated with albumin -continue to replace HEME: #ABLA: -2/2 skin infection requiring OR #AOCD:POA Lab Results Component Value Date HGB 10.5 (L) 03/08/2023 -No s/s bleeding, no indication for transfusion, continue to monitor closely #Coagulopathy: POA -elevated INR -likely 2/2 poor nutritional state/infection ID: #Leukocytosis:POA #Soft tissue Skin Infection:POA -24h Clinda complete -Vanc/Martha Lab Results Component Value Date WBC 10.9 (H) 03/08/2023 #Diabetic Foot ulcers:POA -2 ulcers on L foot -c/s podiatry -continue abx -Xrays on admission no osteo however if concern MRI is test of choice -03/07 Debrided by podiatry dry sterile dressing consisting of betadine, 4x4s, kerlix. - Wound care: recommend daily betadine paint and dry sterile dressing - Weight bearing status: WBAT in heel strike shoe per PT - Advised diabetic shoes with custom offloading inserts for alf sheogear 03/07:Duplex imaging of the bilateral lower extremity [place] arteries reveals patent vessels with no flow limiting lesions identified Culture Results: No data to display Lab Results Component Value Date MICROBIOLOGY (.) 03/06/2023 Preliminary Report: Moderate Streptococcus anginosus For susceptibility results, refer to accession number [id number] on the scrotum tissue culture from 03/06/2023 MICROBIOLOGY (.) 03/06/2023 Preliminary Report: Moderate Streptococcus anginosus Susceptibility testing results to follow. Few Mixed microorganisms. MICROBIOLOGY (.) 03/06/2023 Preliminary Report: Moderate Streptococcus anginosus For susceptibility results, refer to accession number [id number] on the scrotum tissue culture from 03/06/2023 Few Mixed microorganisms. MICROBIOLOGY Preliminary Report: No growth to date. 03/06/2023 MICROBIOLOGY Preliminary Report: No growth to date. 03/06/2023 Assessment and plan has been reviewed with the Critical Care Fellow who reviewed the plan with the SICU attending. Matheus Frias PA-C Critical Care Performed by: Matheus Frias PA Authorized by: Matheus Frias PA CRITICAL CARE: Team: OTHER Shift: PM Level of Billing: Subsequent Hospital Visit Level 3 My time spent with this patient was 60 minutes: Critical Provider Statement: I have seen and examined the patient on this day of service. I have reviewed and confirmed the history, physical exam, laboratory, and radiographic data as documented in the ICU note. I have reviewed and discussed my treatment plan with the patient's team and other medical/corporate consultant staff. This time was in addition to and separate from care provided by other practitioners on this day of service. I spent time discussing the management of this critically ill patient with consultants and the medical staff, I spent time documenting in the medical record and I spent time reviewing and interpreting data from bedside monitors, laboratory results, and imaging * Riya Madison, PT - 03/08/2023 9:04 AM CDT Physical Therapy Physical Therapy Initial Assessment NOTE: This is a summary note for the elizabeth assessments completed during the evaluation session. For full details, review chart review for all flowsheets documented on by this physical therapist on thisdate. Vital signs documented in vital signs flowsheet. Assessment Assessment Prognosis: Good Problem List: Gait deviations, Decreased strength, Decreased endurance, Impaired balance, Decreasedmobility, Pain Problem List Comments: PT Diagnosis: s/p I&D perineum 03/06 c/b necrotizing skin infection results in above listed activity deficits and impairments which prevent full participation in home and community mobility Barriers to Discharge: Current Mobility Status, Decreased caregiver support, Home environment challenged Plan Plan Plan : Plan of care initiated, If this is the last note, consider this the discharge summary PT Recommendation and Plan Recommendation/Plan PT Recommendation/Plan: Senior Living Facility Patient at high risk for: Injury due to decreased ability to care for self, Injury due to reduced functional status, Injury due to balance deficits, Readmission, Falls Recommend SNF due to: Risk of injury at home, Unable to safely care for self in the home, Skilled therapy needed to address care for self in the home, Skilled therapy needed to address functional deficits, Skilled therapy needed for patient to return to prior level of independence PT Recommendation/Plan Comments: Pending progress PT Frequency during current admission: 2-3x/wk Treatment/Interventions during current admission: Balance Training, Bed mobility, Endurance training, Gait training, Neuromuscular re-education, Transfer training, Therapeutic exercise, Therapeutic activity, Stair training, Strengthening PT - Next Appointment: 03/11/23 PT Evaluation Complete: Yes General Information General Chart Reviewed: Yes Session Type: Evaluation PT Received On: 03/08/23 Safe Environment: Arm band checked, Patient found in supine, Gait belt not utilized, see comment (no OOB mobility completed) Subjective: Agreeable to Therapy PT Missed Visit Reason: Procedure/testing/appointment (Pt in OR this morning, PT will continue to monitor.) Family/Caregiver Present: No Physical Therapy-Patient Goal: Return home Prior Function Prior Function Level of [place]: Independent with ADLs, Independent functional transfers, Independent with ambulation Lives With: 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 Pt is independent at baseline Home Living Home Living Type of Home: House Home Layout: Multi-level, Able to live on main level with bedroom/bathroom Home Access: Ramped entrance Home Mobility Equipment-Available: None Home Mobility Equipment-Currently Using: None Additional Comments: Pt reports no use of AD at baseline Precautions Precautions Precautions: Fall risk, Other (Comment) (L LE WBAT with heel strike shoe donned) Weight Bearing Restrictions: Yes LLE Weight Bearing: As tolerated Precaution Comments: Pt educated on WB precautions and he verbalizes good understanding Pain Pain Assessment Pain Assessment: 0-10 Pain Score: 5 - Moderate pain Pain Type: Surgical pain Pain Location: Scrotum Pain Interventions: RN Notified (RN raul notified) Cognition Cognition Arousal/Alertness: Alert, Appropriate responses to stimuli Orientation : Oriented X4 (person, place, time, situation) Following Commands: Follows all commands and directions without difficulty Safety Judgment: Good awareness of safety precautions Compliance/Behavior: Easy to engage 6 Clicks Basic Mobility - 6 Click How much difficulty does the patient have: Turning over in bed: A lot How much difficulty does the patient currently have: Sitting down and standing up from a chair witharms?: A lot How much difficulty does the patient have: Moving from lying on back to sitting on the side of the bed?: A lot How much difficulty does the patient have: Moving to and from a bed to a chair including wheelchair?: A lot How much help does the patient currently need: Walk in hospital room?: A lot How much help from another person does the patient currently need: Climbing 3-5 steps with a railing?: Total Total 6 Click Score (range 6-24): 11 Score Interpretation: 11 Bed Mobility Bed Mobility Bed Mobility: No (Pt refused bed mobility on this date) Transfers Transfers Transfer: No (Pt refused all OOB mobility on this date 2/2 rectal tube discomfort) Balance Ambulation Ambulation Ambulation: No (Not appropriate on this date) Ambulation 1 Ambulation Comments 1: balance assessment not appropriate 2/2 limited mobility Stairs Stairs Stairs: No (Not appropriate on this date) Curbs RLE Assessment RLE Assessment RLE Assessment: Within Functional Limits LLE Assessment LLE Assessment LLE Assessment: Exceptions to WFL LLE Comments: Lacks -10 degrees of knee extension Equipment Used Safe Environment End of Session Safe Environment End of Therapy Session: Patient left supine in bed, Overbed table within reach, Call light within reach, RN notified Other Comments Other Comments Other PT Comments: Pt refused all OOB mobility on this date 2/2 rectal tube discomfort and stated that he does not want to get out of bed until rectal tube is removed. PT spoke with urology team and they are unsure when tube will be removed but are hoping it to be later this week and are aware of pt request to stay in bed until further POC is established. Pt understands risks of prolonged bedrestand is motivated to get stronger once rectal tube and next surgery is completed so that he can return home and take care of his mother. Pt educated on this importance of completing bed level exercises to maintain strength and he is very agreeable. PT Goals Multi-Disciplinary Problems (from Physical Therapy) Active Problems Problem: Mobility Start Date: 03/08/23 Goal Start Date Expected End Date End Date LTG - Patient will ambulate community distance 03/08/23 05/08/23 -- Goal Details: Without AD independently Goal Start Date Expected End Date End Date STG - Patient will ambulate 03/08/23 03/22/23 -- Goal Details: 50 feet with WW and Min A Problem: Transfers Start Date: 03/08/23 Goal Start Date Expected End Date End Date STG - Transfer from bed to chair 03/08/23 03/22/23 -- Goal Details: Min A Goal Start Date Expected End Date End Date STG - Patient to transfer to and from sit to supine 03/08/23 03/22/23 -- Goal Details: Min A Goal Start Date Expected End Date End Date STG - Patient will transfer sit to and from stand 03/08/23 03/22/23 -- Goal Details: Min A Problem: Orthotic Start Date: 03/08/23 Goal Start Date Expected End Date End Date STG - Patient and/or caregiver will perform home exercise program with the following level of assist: 03/08/23 03/22/23 -- Goal Details: Independently in order to maintain strength and improve ROM For questions, please review the treatment team and contact the PT or AUTOMOBILE LIGHTS ASSEMBLER currently assigned to this patient. If a physical therapy clinician is not assigned to this patient, please call [phone]. * Mckayla Iyer NP - 03/08/2023 8:55 AM CDTAssociated Order(s): Critical Care Post-Procedure Diagnose(s): Scrotal abscess Surgical ICU Daily Progress Team: [facility] 2 AM Subjective Patient is a 42 y.o. male admitted on 03/06/2023 10:24 AM with chief complaint of DKA. Interval History: -Transitioned off insulin gtt to 8u NPH [id number] and SSI -once taking in more nutrition will add scheduled lispro with mealtime -follow up antibiotic duration plan with urology Objective Physical Exam: General: No Acute Distress Neuro: A&Ox3, follows commands, MAEW Cardiac: S1 and S2, RRR, no M/G/R Pulmonary: Lungs clear to auscultation, respirations even/unlabored Abdominal: Soft/Nontender/Nondistended, hypoactive bowel sounds Extremities: No edema, PPP, warm, pink Drains: Min with clear yellow output, perineal vac with serosanguinous output Medications Scheduled Meds:acetaminophen, 1,000 mg, oral, Q6H ASTON docusate sodium, 100 mg, oral, BID Or docusate, 100 mg, feeding tube, BID enoxaparin, 40 mg, subcutaneous, Daily-2100 insulin lispro, 0-4 Units, subcutaneous, Nightly insulin lispro, 0-5 Units, subcutaneous, TID with meals insulin NPH, 8 Units, subcutaneous, Q8H meropenem, 2,000 mg, intravenous, Q8H ASTON senna, 1 tablet, oral, Daily vancomycin, 15 mg/kg, intravenous, Q12H Continuous Infusions: PRN Meds:. oxyCODONE Vital signs for last 24 hours: Temp: [36.7 ??C (98.1 ??F)-37.2 ??C (99 ??F)] 36.7 ??C (98.1 ??F) Pulse: [78-96] 89 BP: (104-150)/(48-112) 144/78 Resp: [10-21] 17 SpO2: [93 %-100 %] 97 % Hemodynamics: MAP (mmHg): [66-119] 98 Pulmonary Support: O2 Therapy: None (Room air) O2 Del Method: Nasal cannula O2 Flow Rate (L/min): 1 L/min Intake/Output: Intake/Output Summary (Last 24 hours) at 03/08/2023 1143 Last data filed at 03/08/2023 1101 Gross per 24 hour Intake 3825 ml Output 1425 ml Net 2400 ml Lab/Radiology/Diagnostic Review: Laboratory review: reviewed the laboratory result(s) in the last 24 hours Recent Results (from the past 24 hour(s)) Basic metabolic panel Collection Time: 03/07/23 12:20 PM Result Value Ref Range Sodium 139 135 - 145 mmol/L Potassium, pl 3.3 3.3 - 4.9 mmol/L Chloride 104 97 - 110 mmol/L CO2 24 22 - 32 mmol/L Anion gap 11 2 - 15 mmol/L BUN 13 6 - 25 mg/dL Creatinine 0.77 (L) 0.80 - 1.30 mg/dL Glucose 142 70 - 199 mg/dL Calcium 8.2 (L) 8.5 - 10.3 mg/dL Magnesium Collection Time: 03/07/23 12:20 PM Result Value Ref Range Magnesium 2.5 1.4 - 2.5 mg/dL Phosphorus Collection Time: 03/07/23 12:20 PM Result Value Ref Range Phosphorus, pl 4.8 (H) 2.3 - 4.5 mg/dL POCT glucose Collection Time: 03/07/23 12:20 PM Result Value Ref Range Glucose, POC 142 70 - 199 mg/dL eGFR Collection Time: 03/07/23 12:20 PM Result Value Ref Range eGFR >90 90 - 130 mL/min/1.73 m2 POCT glucose Collection Time: 03/07/23 1:55 PM Result Value Ref Range Glucose, POC 151 70 - 199 mg/dL POCT glucose Collection Time: 03/07/23 3:00 PM Result Value Ref Range Glucose, POC 138 70 - 199 mg/dL POCT glucose Collection Time: 03/07/23 4:05 PM Result Value Ref Range Glucose, POC 138 70 - 199 mg/dL Basic metabolic panel Collection Time: 03/07/23 4:49 PM Result Value Ref Range Sodium See Comment 135 - 145 mmol/L Potassium, pl See Comment 3.3 - 4.9 mmol/L Chloride See Comment 97 - 110 mmol/L CO2 See Comment 22 - 32 mmol/L Anion gap See Comment 2 - 15 mmol/L BUN See Comment 6 - 25 mg/dL Creatinine See Comment 0.80 - 1.30 mg/dL Glucose See Comment 70 - 199 mg/dL Calcium See Comment 8.5 - 10.3 mg/dL Magnesium Collection Time: 03/07/23 4:49 PM Result Value Ref Range Magnesium See Comment 1.4 - 2.5 mg/dL Phosphorus Collection Time: 03/07/23 4:49 PM Result Value Ref Range Phosphorus, pl See Comment 2.3 - 4.5 mg/dL Beta-hydroxybutyrate Collection Time: 03/07/23 4:49 PM Result Value Ref Range Beta-Hydroxybutyrate 0.9 (H) 0.0 - 0.5 mmol/L eGFR Collection Time: 03/07/23 4:49 PM Result Value Ref Range eGFR See Comment 90 - 130 POCT glucose Collection Time: 03/07/23 5:08 PM Result Value Ref Range Glucose, POC 133 70 - 199 mg/dL POCT glucose Collection Time: 03/07/23 7:08 PM Result Value Ref Range Glucose, POC 129 70 - 199 mg/dL Comprehensive metabolic panel Collection Time: 03/07/23 8:27 PM Result Value Ref Range Sodium 139 135 - 145 mmol/L Potassium, pl 3.6 3.3 - 4.9 mmol/L Chloride 106 97 - 110 mmol/L CO2 24 22 - 32 mmol/L Anion gap 9 2 - 15 mmol/L BUN 14 6 - 25 mg/dL Creatinine 0.73 (L) 0.80 - 1.30 mg/dL Glucose 136 70 - 199 mg/dL Calcium 7.8 (L) 8.5 - 10.3 mg/dL Bilirubin, total 0.3 0.1 - 1.2 mg/dL Protein, pl 5.3 (L) 6.5 - 8.5 g/dL Albumin 2.1 (L) 3.5 - 5.0 g/dL Alk phos 118 40 - 130 Units/L ALT 17 7 - 55 Units/L AST 28 10 - 50 Units/L Phosphorus Collection Time: 03/07/23 8:27 PM Result Value Ref Range Phosphorus, pl 4.1 2.3 - 4.5 mg/dL Magnesium Collection Time: 03/07/23 8:27 PM Result Value Ref Range Magnesium 2.5 1.4 - 2.5 mg/dL CBC with auto differential Collection Time: 03/07/23 8:27 PM Result Value Ref Range WBC 14.5 (H) 3.8 - 9.9 K/cumm Hgb 10.3 (L) 13.0 - 17.5 g/dL Hct 32.4 (L) 38.9 - 50.3 % Plt 297 150 - 400 K/cumm MPV 9.0 (L) 9.1 - 12.3 fL RBC 3.80 (L) 4.30 - 5.80 M/cumm MCV 85.3 81.3 - 96.4 fL MCH 27.1 27.1 - 33.3 pg MCHC 31.8 (L) 32.3 - 35.7 g/dL RDW CV 13.6 11.1 - 14.9 % RDW SD 42.5 35.7 - 48.1 fL NRBC abs 0.00 0.00 - 0.01 K/cumm Calcium, ionized, whole blood Collection Time: 03/07/23 8:27 PM Result Value Ref Range Ca, ionized, bld 4.34 (L) 4.50 - 5.10 mg/dL Differential, auto Collection Time: 03/07/23 8:27 PM Result Value Ref Range Neutrophil abs 10.1 (H) 1.7 - 6.5 K/cumm Imm gran abs 0.3 (H) 0.0 - 0.1 K/cumm Lymphocyte abs 2.5 0.8 - 3.3 K/cumm Monocyte abs 1.3 (H) 0.2 - 0.8 K/cumm Eosinophil abs 0.2 0.0 - 0.5 K/cumm Basophil abs 0.1 0.0 - 0.1 K/cumm Neutrophil pct 69.8 % Imm gran pct 2.1 % Lymphocyte pct 17.3 % Monocyte pct 8.8 % Eosinophil pct 1.5 % Basophil pct 0.5 % eGFR Collection Time: 03/07/23 8:27 PM Result Value Ref Range eGFR >90 90 - 130 mL/min/1.73 m2 POCT glucose Collection Time: 03/07/23 8:29 PM Result Value Ref Range Glucose, POC 129 70 - 199 mg/dL POCT glucose Collection Time: 03/07/23 10:43 PM Result Value Ref Range Glucose, POC 125 70 - 199 mg/dL POCT glucose Collection Time: 03/08/23 12:51 AM Result Value Ref Range Glucose, POC 137 70 - 199 mg/dL POCT glucose Collection Time: 03/08/23 2:56 AM Result Value Ref Range Glucose, POC 152 70 - 199 mg/dL POCT glucose Collection Time: 03/08/23 5:19 AM Result Value Ref Range Glucose, POC 171 70 - 199 mg/dL Vancomycin level random Collection Time: 03/08/23 5:31 AM Result Value Ref Range Vancomycin random 18.9 mcg/mL POCT glucose Collection Time: 03/08/23 6:59 AM Result Value Ref Range Glucose, POC 146 70 - 199 mg/dL POCT glucose Collection Time: 03/08/23 8:03 AM Result Value Ref Range Glucose, POC 145 70 - 199 mg/dL POCT glucose Collection Time: 03/08/23 9:06 AM Result Value Ref Range Glucose, POC 142 70 - 199 mg/dL POCT glucose Collection Time: 03/08/23 9:58 AM Result Value Ref Range Glucose, POC 147 70 - 199 mg/dL No results found. Assessment/Plan Principal Problem: Scrotal abscess Active Problems: Perineal abscess NEURO: #Acute Pain: -APAP -PRN Oxy CV: -hemodynamically unsupported PULM: -currently on RA No active issues GI: Diet: consistent carb Bowel regimen: Doc/Senna ENDO: #Diabetes POA, new diagnosis c/b DKA Lab Results Component Value Date HGBA1C 13.3 (H) 03/06/2023 -recycling attendant consulted -endocrine diabetes consulted -transition off insulin gtt this AM, 8u NPH [id number] with SSI -once consistently taking in PO will schedule mealtime lispro RENAL: Cr Lab Results Component Value Date CREATININE 0.73 (L) 03/07/2023 -currently with adequate UOP continue to monitor closely HEME: #ABLA Lab Results Component Value Date HGB 10.3 (L) 03/07/2023 -No s/s bleeding, no indication for transfusion, continue to monitor closely ID: #Leukocytosis with #[place] gangrene/ POA Lab Results Component Value Date WBC 14.5 (H) 03/07/2023 S/p OR 03/06 with ACES/EGS and Urology for rectal, perineal and scrotal debridement -OR 03/07 for further debridement with urology, vac placed -plan to return to OR Thursday to takedown vac and debride further, will evaluate proximity to rectum at that time -follow cultures Antibiotics: Vanc, Martha Cultures: 03/06 perineum GPB, GNB, GPC MSK: #LEFT Foot ulcer POA -podiatry following -Arterial duplex's complete Intensive Care Unit Standards of Care: DVT prophylaxis: SCDs, lovenox Vascular access: PIVs Goals of care: FULL CODE Mckayla Iyer [facility] [place]- Critical Care Performed by: Mckayla Iyer NP Authorized by: Mckayla Iyer NP CRITICAL CARE: Team: OTHER Shift: AM Level of Billing: Subsequent Hospital Visit Level 3 My time spent with this patient was 45 minutes: Critical Provider Statement: I have seen and examined the patient on this day of service. I have reviewed and confirmed the history, physical exam, laboratory, and radiographic data as documented in the ICU note. I have reviewed and discussed my treatment plan with the patient's team and other medical/corporate consultant staff. This time was in addition to and separate from care provided by other practitioners on this day of service. Cosigned by Ursula Ferro MD at 03/08/2023 1:42 PM CDT * Deric Deal MD - 03/08/2023 8:19 AM CDT INPATIENT UROLOGY PROGRESS NOTE 03/08/2023 Rene Hyatt is a 42 y.o. male on Hospital Day: 3 and 1 Day Post-Op s/p incision and drainage of perineum and scrotum SUBJECTIVE: 24h Interval History: NAEON. VSS and AF. Early this morning, patient had stool leak into the wound vac. He is on insulin gtt, no pressor support needed. Patient had no acute complaints this morning. Pain is well controlled with oral and IV meds . he julia a NPO Diet Sips of clear liquids with anticipation of take back to OR for further wound debridement. We discussed general surgical plans and expectations of his hospital course this AM. 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 OBJECTIVE: Current Facility-Administered Medications: acetaminophen (TYLENOL) tablet 1,000 mg, 1,000 mg, oral, Q6H ASTON, Matheus Frias, PA, 1,000 mg at 03/08/23 0621 dextrose (D10W) 10% bolus 250 mL, 250 mL, intravenous, Q15 Min PRN, Mckayla Iyer NP dextrose 5% infusion, 100 mL/hr, intravenous, Continuous, Mckayla Iyer NP, Last Rate: 100 mL/hr at 03/08/23 0800, 100 mL/hr at 03/08/23 0800 docusate sodium (COLACE) capsule 100 mg, 100 mg, oral, BID, 100 mg at 03/08/23 0815 OR docusate(COLACE) 10 mg/mL oral liquid 100 mg, 100 mg, feeding tube, BID, Matheus Frias PA, 100 mg at 03/06/232116 enoxaparin (LOVENOX) syringe 40 mg, 40 mg, subcutaneous, Daily-2099, Matheus Frias PA, 40 mg at 03/07/231948 insulin regular in 0.9% sodium chloride (MYXREDLIN) 100 unit/100 mL (1 unit/mL) infusion (premix), 0-30 Units/hr, intravenous, Titrated, Mckayla Iyer NP, Last Rate: 2 mL/hr at 03/08/23 0800, 2 Units/hr at 03/08/23 0800 meropenem (MERREM) 2,000 mg/120 mL in sodium chloride 0.9% (premix) 2,000 mg, 2,000 mg, intravenous, Q8H ASTON, Matheus Frias PA, Stopped at 03/08/23 0651 oxyCODONE (ROXICODONE) tablet 5 mg, 5 mg, oral, Q4H PRN, Deanna Thompson MD PhD, 5 mg at 03/08/23 0815 senna (SENOKOT) tablet 1 tablet, 1 tablet, oral, Daily, Matheus Frias PA, 1 tablet at 03/08/23814 vancomycin (VANCOCIN) 2,250 mg in sodium chloride 0.9% 500 mL IVPB, 15 mg/kg, intravenous, Q12H, Matheus Frias PA, Last Rate: 261.3 mL/hr at 03/08/23 0717, 2,250 mg at 03/08/23 0717 24hr Min/Max: Temp Min: 36.7 ??C (98.1 ??F) Max: 37.2 ??C (99 ??F) Pulse Min: 78 Max: 96 BP Min: 104/50 Max: 132/74 Resp Min: 10 Max: 21 SpO2 Min: 93 % Max: 100 % Most Recent: Vitals: 03/08/23 0700 BP: 127/71 Pulse: 87 Resp: 16 Temp: SpO2: 93% I/O last 2 completed shifts: In: 3944 [P.O.:1000; I.V.:1631; IV Piggyback:1313] Out: 1230 [Urine:1170; Stool:50; Blood:10] I/O this shift: In: 304 [I.V.:43; IV Piggyback:261] Out: 175 [Urine:175] PE: GENERAL: Well-developed, well-nourished, appears stated age. Lying comfortably in bed, no acute distress HEENT: PERRL, sclerae anicteric. EOMI. Mucous membranes moist. RESPIRATORY: Symmetric chest wall expansion with normal respiratory effort. CARDIOVASCULAR: Well-perfused. GASTROINTESTINAL: Soft, non-tender, non-distended. No rebound or guarding : min with yellow urine with small amount of sediment and mucus Wounds: Rectal would packed, 1 deep unstagable ulcer on L base of MTP and on distal MTP. See wound note and podiatry c/s Lab/Radiology/Diagnostic Review: Laboratory review: Lab results in the last 12 hours: Recent Results (from the past 12 hour(s)) Comprehensive metabolic panel Collection Time: 03/07/23 8:27 PM Result Value Ref Range Sodium 139 135 - 145 mmol/L Potassium, pl 3.6 3.3 - 4.9 mmol/L Chloride 106 97 - 110 mmol/L CO2 24 22 - 32 mmol/L Anion gap 9 2 - 15 mmol/L BUN 14 6 - 25 mg/dL Creatinine 0.73 (L) 0.80 - 1.30 mg/dL Glucose 136 70 - 199 mg/dL Calcium 7.8 (L) 8.5 - 10.3 mg/dL Bilirubin, total 0.3 0.1 - 1.2 mg/dL Protein, pl 5.3 (L) 6.5 - 8.5 g/dL Albumin 2.1 (L) 3.5 - 5.0 g/dL Alk phos 118 40 - 130 Units/L ALT 17 7 - 55 Units/L AST 28 10 - 50 Units/L Phosphorus Collection Time: 03/07/23 8:27 PM Result Value Ref Range Phosphorus, pl 4.1 2.3 - 4.5 mg/dL Magnesium Collection Time: 03/07/23 8:27 PM Result Value Ref Range Magnesium 2.5 1.4 - 2.5 mg/dL CBC with auto differential Collection Time: 03/07/23 8:27 PM Result Value Ref Range WBC 14.5 (H) 3.8 - 9.9 K/cumm Hgb 10.3 (L) 13.0 - 17.5 g/dL Hct 32.4 (L) 38.9 - 50.3 % Plt 297 150 - 400 K/cumm MPV 9.0 (L) 9.1 - 12.3 fL RBC 3.80 (L) 4.30 - 5.80 M/cumm MCV 85.3 81.3 - 96.4 fL MCH 27.1 27.1 - 33.3 pg MCHC 31.8 (L) 32.3 - 35.7 g/dL RDW CV 13.6 11.1 - 14.9 % RDW SD 42.5 35.7 - 48.1 fL NRBC abs 0.00 0.00 - 0.01 K/cumm Calcium, ionized, whole blood Collection Time: 03/07/23 8:27 PM Result Value Ref Range Ca, ionized, bld 4.34 (L) 4.50 - 5.10 mg/dL Differential, auto Collection Time: 03/07/23 8:27 PM Result Value Ref Range Neutrophil abs 10.1 (H) 1.7 - 6.5 K/cumm Imm gran abs 0.3 (H) 0.0 - 0.1 K/cumm Lymphocyte abs 2.5 0.8 - 3.3 K/cumm Monocyte abs 1.3 (H) 0.2 - 0.8 K/cumm Eosinophil abs 0.2 0.0 - 0.5 K/cumm Basophil abs 0.1 0.0 - 0.1 K/cumm Neutrophil pct 69.8 % Imm gran pct 2.1 % Lymphocyte pct 17.3 % Monocyte pct 8.8 % Eosinophil pct 1.5 % Basophil pct 0.5 % eGFR Collection Time: 03/07/23 8:27 PM Result Value Ref Range eGFR >90 90 - 130 mL/min/1.73 m2 POCT glucose Collection Time: 03/07/23 8:29 PM Result Value Ref Range Glucose, POC 129 70 - 199 mg/dL POCT glucose Collection Time: 03/07/23 10:43 PM Result Value Ref Range Glucose, POC 125 70 - 199 mg/dL POCT glucose Collection Time: 03/08/23 12:51 AM Result Value Ref Range Glucose, POC 137 70 - 199 mg/dL POCT glucose Collection Time: 03/08/23 2:56 AM Result Value Ref Range Glucose, POC 152 70 - 199 mg/dL POCT glucose Collection Time: 03/08/23 5:19 AM Result Value Ref Range Glucose, POC 171 70 - 199 mg/dL Vancomycin level random Collection Time: 03/08/23 5:31 AM Result Value Ref Range Vancomycin random 18.9 mcg/mL POCT glucose Collection Time: 03/08/23 6:59 AM Result Value Ref Range Glucose, POC 146 70 - 199 mg/dL POCT glucose Collection Time: 03/08/23 8:03 AM Result Value Ref Range Glucose, POC 145 70 - 199 mg/dL ASSESSMENT: Rene Hyatt is a 42 y.o. male with a perineal fluid collection/abscess and likely perineal/scrotal cellulitis, gas on CT scan. Explored 03/06 in OR and was found to have significant purulent fluid and necrotic tissue in perineum with anterior extension to inguinal canal, posteriorly extending to rectum without involvement. Takeback to OR for repeat debridement on 03/07 with wound vac placement and rectal tube placement. PLAN - Referral to Social Work to assist with management of his home responsibilities; updated on 03/08 and patient states his mother has been transferred to a new facility for interim care - Maintain min for accurate I/Os - Will plan for wound vac change as scheduled - Appreciate excellent ICU care Deric Deal MD Urology PGY-1 03/08/23 8:19 AM Cosigned by Arnaldo Robles MD at 03/08/2023 4:11 PM CDT Associated attestation - Arnaldo Robles MD - 03/08/2023 4:11 PM CDT I have seen and examined the patient on 03/08/23. I agree with the findings and plan of care as documented in the resident's/fellow's note.. * Bijan Villafuerte MD - 03/08/2023 5:47 AM CDT [facility] Acute Care Emergency Surgery Consult Progress Note Date: March 08, 2023 Patient Name: Rene Hyatt Reason for Consult: Deanna Thompson Length of Stay: 2 POD:1 Day Post-Op Procedure(s): EXAM UNDER ANESTHESIA EXCISIONAL DEBRIDEMENT SCROTUM AND PERINEUM SUBJECTIVE Interval History: - No acute events overnight. Patient remains stable - Continues on martha and vanc - WBC 14.5 from 21.3 - s/p return to OR with yesterday today with urology further debridement and wound vac placement - debridement of deep perineum and scrotum OBJECTIVE Medications: Current Facility-Administered Medications: acetaminophen (TYLENOL) tablet 1,000 mg, 1,000 mg, oral, Q6H ASTON, Matheus Frias PA, 1,000 mg at 03/08/23 0000 dextrose (D10W) 10% bolus 250 mL, 250 mL, intravenous, Q15 Min PRN, Mckayla Iyer NP dextrose 5% infusion, 100 mL/hr, intravenous, Continuous, Mckayla Iyer NP, Last Rate: 100 mL/hr at 03/08/23 0400, 100 mL/hr at 03/08/23 0400 docusate sodium (COLACE) capsule 100 mg, 100 mg, oral, BID, 100 mg at 03/07/239 OR docusate(COLACE) 10 mg/mL oral liquid 100 mg, 100 mg, feeding tube, BID, Matheus Frias PA, 100 mg at 03/06/232116 enoxaparin (LOVENOX) syringe 40 mg, 40 mg, subcutaneous, Daily-2100, Matheus Frias PA, 40 mg at 03/07/231948 insulin regular in 0.9% sodium chloride (MYXREDLIN) 100 unit/100 mL (1 unit/mL) infusion (premix), 0-30 Units/hr, intravenous, Titrated, Mckayla Iyer NP, Last Rate: 2 mL/hr at 03/08/23 0400, 2 Units/hr at 03/08/23 0400 meropenem (MERREM) 2,000 mg/120 mL in sodium chloride 0.9% (premix) 2,000 mg, 2,000 mg, intravenous, Q8H ASTON, Matheus Frias PA, Stopped at 03/07/23 2307 oxyCODONE (ROXICODONE) tablet 5 mg, 5 mg, oral, Q4H PRN, Deanna Thompson MD PhD, 5 mg at 03/08/23 0211 senna (SENOKOT) tablet 1 tablet, 1 tablet, oral, Daily, Matheus Frias PA, 1 tablet at 03/07/23 1122 vancomycin (VANCOCIN) 2,250 mg in sodium chloride 0.9% 500 mL IVPB, 15 mg/kg, intravenous, Q12H, Matheus Frias PA, Stopped at 03/07/232029 Is&Os: I/O last 2 completed shifts: In: 5078.7 [P.O.:990; I.V.:982.7; IV Piggyback:3106] Out: 1000 [Urine:990; Blood:10] I/O this shift: In: 1620 [P.O.:1000; I.V.:520; IV Piggyback:100] Out: 650 [Urine:650] Physical Exam: 24hr Min/Max: Temp Min: 36.7 ??C (98.1 ??F) Max: 37.2 ??C (99 ??F) Pulse Min: 78 Max: 96 BP Min: 98/55 Max: 132/74 Resp Min: 10 Max: 21 SpO2 Min: 94 % Max: 100 % Vitals: 03/08/23 0400 BP: 131/69 Pulse: 96 Resp: 17 Temp: SpO2: 100% GENERAL: No acute distress, non toxic-appearing NEURO: Alert and oriented x3, no focal deficits HEENT: EOMs grossly intact, neck supple, trachea midline RESP: Nonlabored breathing on room air, normal effort CARDIO: Regular rate and rhythm ABDOMEN: Soft, nontender to palpation, nondistended Ext: Warm and well perfused, no edema SKIN: Warm, dry. Perineal and scrotal incisions packed and covered with abd's and secured with tape Labs/Imaging: Recent Labs Lab Units 03/07/23202603/06/23211403/06/23 0535 WBC K/cumm 14.5* 21.3* 17.3* HEMOGLOBIN g/dL 10.3* 11.6* 12.3* HEMATOCRIT % 32.4* 35.8* 36.7* PLATELETS K/cumm 297 348 332 Recent Labs Lab Units 03/08/23 0519 03/08/23 0256 03/08/23 0051 03/07/23202803/07/23202603/07/23 1708 03/07/23 1649 03/07/23 1355 03/07/23 1220 SODIUM mmol/L -- -- -- -- 139 -- See Comment -- 139 POTASSIUM PLASMA mmol/L -- -- -- -- 3.6 -- See Comment -- 3.3 CHLORIDE mmol/L -- -- -- -- 106 -- See Comment -- 104 CO2 mmol/L -- -- -- -- 24 -- See Comment -- 24 BUN SERUM mg/dL -- -- -- -- 14 -- See Comment -- 13 CREATININE mg/dL -- -- -- -- 0.73* -- See Comment -- 0.77* GLUCOSE mg/dL -- -- -- -- 136 -- See Comment -- 142 POC GLUCOSE MONITOR mg/dL 171 152 137 < > -- < > -- < > 142 CALCIUM mg/dL -- -- -- -- 7.8* -- See Comment -- 8.2* < > = values in this interval not displayed. Recent Labs Lab Units 03/06/23 1102 PROTIME (PT) sec 18.3* INR 1.61* No results found. ASSESSMENT AND PLAN: 42 y.o. man with a past medical history of non-healing foot wounds who presents with a chief complaint of scrotal and perineal abscess - appreciate care per SICU - appreciate care per Urology consult for further debridements - Diet: per primary - cont antibiotics - vancomycin, cefepime, and metronidazole - [facility]S will sign-off. Please call if there is concern of rectal involvement with the infection, no clear involvement in the OR with ACCS on 03/06 or per urology in the OR on 03/07. Please call the [facility] Inpatient Consult Phone with any questions or concerns regarding this patient. Bijan Villafuerte MD Resident Physician General Surgery [facility] Inpatient Consult [facility] ED Consult [facility] Outpatient Clinic - option 1 Cosigned by Darci Leal MD at 03/20/2023 5:01 PM CDT Associated attestation - Darci Leal MD - 03/20/2023 5:01 PM CDT I have seen and examined this patient on the date of service as documented on the resident note andhave reviewed and confirmed the history, physical exam, laboratory, radiographic data, assessment and plan as documented by the resident. Darci Leal MD Section of Acute and Critical Care Surgery Department of Surgery [facility] * Matheus Frias PA - 03/07/2023 9:04 PM CDTAssociated Order(s): Critical Care Post-Procedure Diagnose(s): Scrotal abscess; Perineal abscess Images from the original note were not included. ICU History and Physical Team: Other PM Subjective Patient is a 42 y.o. male presented to the ICU with chief complaint of necrotizing skin infection. Events: -3g Ca -Vanc Random 30 -DM T1 labs reordered 629 -d/c dilaudid not used - Reviewed and ordered pertinent laboratory tests. Reviewed any Radiological imaging pertinent to patients current treatments. Constant evaluation of I/O's, vitals and oxygen requirements throughout shift. Multiple bedside evaluations of patients over all status. HPI: 42 y/o M presented to OSH with scrotal swelling (Yamila's gangrene) c/f soft tissue infection andulcer on left foot. 03/06:OR I/D scrotum to perirectal area, packed with Dakins, 1.8L crystalloid, 50EBL, abx, Insulin gtt. 03/07: OR I/D, wound vac History reviewed. No pertinent past medical history. History reviewed. No pertinent surgical history. Medications Prior to Admission Medication Sig Dispense Refill Last Dose qyrpoerfclxko-wrcqzcw-xhkrxznb (EXCEDRIN MIGRAINE) 250-250-65 mg per tablet Take 1 tablet by mouth daily as needed for headaches or pain aspirin 325 mg tablet Take 2 tablets (650 mg total) by mouth daily as needed for pain or headaches doxycycline 100 mg capsule Take 1 tablet/capsule (100 mg total) by mouth 2 (two) times a day x 10 days traMADoL (ULTRAM) 50 mg tablet Take 1 tablet (50 mg total) by mouth every 6 (six) hours as needed for pain x 7 days No Known Allergies Social History Tobacco Use Smoking status: Never Smokeless tobacco: None Substance and Sexual Activity Drug use: None Sexual activity: None Alcohol Use: Not on file History reviewed. No pertinent family history. Review of Systems: All review of systems are negative except for buttock pain Vitals: Most Recent : Vitals: 03/07/231999 BP: Pulse: 87 Resp: 17 Temp: SpO2: 96% Hemodynamics: MAP (mmHg): [66-119] 119 Intake/Output: Date 03/06/231899 - 03/07/2365803/07/23699 - 03/08/23 0659 Shift 2748-1553 24 Hour Total 2216-4537 9229-2017 24 Hour Total INTAKE P.O. 990 990 I.V.(mL/kg) 75.7(0.5) 1675.7(10.4) 907(5.6) 907(5.6) IV Piggyback 18923 1213 1213 Shift Total(mL/kg) 2958.7(18.3) 4698.7(29.1) 2120(13.1) 2120(13.1) OUTPUT Urine(mL/kg/hr) 595 595 395(0.2) 125 520 Stool 0 0 Blood 30 10 10 Shift Total(mL/kg) 595(3.7) 625(3.9) 405(2.5) 125(0.8) 530(3.3) NET 2363.7 4073.7 1715 -125 1590 Weight (kg) 161.7 161.7 161.7 161.7 161.7 Objective Physical exam: Gen: NAD Neuro: A&Ox3, non-focal, follows commands, MAEW HEENT: Head NC/AT, face symmetrical, PERRLA CV: S1 and S2 without M/C/R, RRR Pulm: LCTA, respirations even/unlabored GI: Abdomen Obese Soft/NT/ND, normoactive bowel sounds : Min to gravity Skin: Warm, dry, good turgor Extremities: No edema, PPP Wounds: W[place], L foot wrapped with Kerlix Access: PIC Lab/Radiology/Diagnostic Review: Laboratory review: Lab results in the last 24 hours: Recent Results (from the past 24 hour(s)) Comprehensive metabolic panel Collection Time: 03/06/23 9:15 PM Result Value Ref Range Sodium 140 135 - 145 mmol/L Potassium, pl 3.5 3.3 - 4.9 mmol/L Chloride 101 97 - 110 mmol/L CO2 26 22 - 32 mmol/L Anion gap 13 2 - 15 mmol/L BUN 14 6 - 25 mg/dL Creatinine 0.79 (L) 0.80 - 1.30 mg/dL Glucose 217 (H) 70 - 199 mg/dL Calcium 8.3 (L) 8.5 - 10.3 mg/dL Bilirubin, total 0.4 0.1 - 1.2 mg/dL Protein, pl 5.9 (L) 6.5 - 8.5 g/dL Albumin 2.4 (L) 3.5 - 5.0 g/dL Alk phos 113 40 - 130 Units/L ALT 15 7 - 55 Units/L AST 25 10 - 50 Units/L Magnesium Collection Time: 03/06/23 9:15 PM Result Value Ref Range Magnesium 2.0 1.4 - 2.5 mg/dL Phosphorus Collection Time: 03/06/23 9:15 PM Result Value Ref Range Phosphorus, pl 4.3 2.3 - 4.5 mg/dL Calcium, ionized Collection Time: 03/06/23 9:15 PM Result Value Ref Range Calcium, Ionized 4.15 (L) 4.50 - 5.10 mg/dL Lactate Collection Time: 03/06/23 9:15 PM Result Value Ref Range Lactate 1.9 0.7 - 2.0 mmol/L CBC with auto differential Collection Time: 03/06/23 9:15 PM Result Value Ref Range WBC 21.3 (H) 3.8 - 9.9 K/cumm Hgb 11.6 (L) 13.0 - 17.5 g/dL Hct 35.8 (L) 38.9 - 50.3 % Plt 348 150 - 400 K/cumm MPV 9.3 9.1 - 12.3 fL RBC 4.23 (L) 4.30 - 5.80 M/cumm MCV 84.6 81.3 - 96.4 fL MCH 27.4 27.1 - 33.3 pg MCHC 32.4 32.3 - 35.7 g/dL RDW CV 13.3 11.1 - 14.9 % RDW SD 41.1 35.7 - 48.1 fL NRBC abs 0.00 0.00 - 0.01 K/cumm Beta-hydroxybutyrate Collection Time: 03/06/23 9:15 PM Result Value Ref Range Beta-Hydroxybutyrate 0.9 (H) 0.0 - 0.5 mmol/L Differential, auto Collection Time: 03/06/23 9:15 PM Result Value Ref Range Neutrophil abs 16.7 (H) 1.7 - 6.5 K/cumm Imm gran abs 0.4 (H) 0.0 - 0.1 K/cumm Lymphocyte abs 2.1 0.8 - 3.3 K/cumm Monocyte abs 1.9 (H) 0.2 - 0.8 K/cumm Eosinophil abs 0.1 0.0 - 0.5 K/cumm Basophil abs 0.1 0.0 - 0.1 K/cumm Neutrophil pct 78.4 % Imm gran pct 1.8 % Lymphocyte pct 9.8 % Monocyte pct 9.1 % Eosinophil pct 0.5 % Basophil pct 0.4 % eGFR Collection Time: 03/06/23 9:15 PM Result Value Ref Range eGFR >90 90 - 130 mL/min/1.73 m2 Hemoglobin A1c Collection Time: 03/06/23 9:15 PM Result Value Ref Range Hgb A1C 13.3 (H) 4.0 - 5.6 % Estimated Average Glucose 335 mg/dL Lipid panel Collection Time: 03/06/23 9:15 PM Result Value Ref Range Cholesterol 106 30 - 199 mg/dL Triglycerides 93 <=149 mg/dL HDL 20 (L) >=40 mg/dL LDL, calculated 67 <=129 mg/dL Non-HDL Cholesterol 86 mg/dL Chol/HDL ratio 5 POCT glucose Collection Time: 03/06/23 9:54 PM Result Value Ref Range Glucose, POC 249 (H) 70 - 199 mg/dL POCT glucose Collection Time: 03/06/23 10:56 PM Result Value Ref Range Glucose, POC 139 70 - 199 mg/dL POCT glucose Collection Time: 03/06/23 11:53 PM Result Value Ref Range Glucose, POC 129 70 - 199 mg/dL POCT glucose Collection Time: 03/07/23 1:01 AM Result Value Ref Range Glucose, POC 132 70 - 199 mg/dL POCT glucose Collection Time: 03/07/23 1:57 AM Result Value Ref Range Glucose, POC 129 70 - 199 mg/dL POCT glucose Collection Time: 03/07/23 3:53 AM Result Value Ref Range Glucose, POC 111 70 - 199 mg/dL POCT glucose Collection Time: 03/07/23 5:59 AM Result Value Ref Range Glucose, POC 97 70 - 199 mg/dL POCT glucose Collection Time: 03/07/23 6:55 AM Result Value Ref Range Glucose, POC 116 70 - 199 mg/dL Beta-hydroxybutyrate Collection Time: 03/07/23 7:57 AM Result Value Ref Range Beta-Hydroxybutyrate 1.7 (H) 0.0 - 0.5 mmol/L POCT glucose Collection Time: 03/07/23 7:57 AM Result Value Ref Range Glucose, POC 125 70 - 199 mg/dL eGFR Collection Time: 03/07/23 7:57 AM Result Value Ref Range eGFR >90 90 - 130 mL/min/1.73 m2 Basic metabolic panel Collection Time: 03/07/23 7:57 AM Result Value Ref Range Sodium 137 135 - 145 mmol/L Potassium, pl 3.3 3.3 - 4.9 mmol/L Chloride 100 97 - 110 mmol/L CO2 25 22 - 32 mmol/L Anion gap 12 2 - 15 mmol/L BUN 13 6 - 25 mg/dL Creatinine 0.74 (L) 0.80 - 1.30 mg/dL Glucose 125 70 - 199 mg/dL Calcium 8.1 (L) 8.5 - 10.3 mg/dL POCT glucose Collection Time: 03/07/23 9:35 AM Result Value Ref Range Glucose, POC 127 70 - 199 mg/dL POCT glucose Collection Time: 03/07/23 10:43 AM Result Value Ref Range Glucose, POC 115 70 - 199 mg/dL Basic metabolic panel Collection Time: 03/07/23 12:20 PM Result Value Ref Range Sodium 139 135 - 145 mmol/L Potassium, pl 3.3 3.3 - 4.9 mmol/L Chloride 104 97 - 110 mmol/L CO2 24 22 - 32 mmol/L Anion gap 11 2 - 15 mmol/L BUN 13 6 - 25 mg/dL Creatinine 0.77 (L) 0.80 - 1.30 mg/dL Glucose 142 70 - 199 mg/dL Calcium 8.2 (L) 8.5 - 10.3 mg/dL Magnesium Collection Time: 03/07/23 12:20 PM Result Value Ref Range Magnesium 2.5 1.4 - 2.5 mg/dL Phosphorus Collection Time: 03/07/23 12:20 PM Result Value Ref Range Phosphorus, pl 4.8 (H) 2.3 - 4.5 mg/dL POCT glucose Collection Time: 03/07/23 12:20 PM Result Value Ref Range Glucose, POC 142 70 - 199 mg/dL eGFR Collection Time: 03/07/23 12:20 PM Result Value Ref Range eGFR >90 90 - 130 mL/min/1.73 m2 POCT glucose Collection Time: 03/07/23 1:55 PM Result Value Ref Range Glucose, POC 151 70 - 199 mg/dL POCT glucose Collection Time: 03/07/23 3:00 PM Result Value Ref Range Glucose, POC 138 70 - 199 mg/dL POCT glucose Collection Time: 03/07/23 4:05 PM Result Value Ref Range Glucose, POC 138 70 - 199 mg/dL Basic metabolic panel Collection Time: 03/07/23 4:49 PM Result Value Ref Range Sodium See Comment 135 - 145 mmol/L Potassium, pl See Comment 3.3 - 4.9 mmol/L Chloride See Comment 97 - 110 mmol/L CO2 See Comment 22 - 32 mmol/L Anion gap See Comment 2 - 15 mmol/L BUN See Comment 6 - 25 mg/dL Creatinine See Comment 0.80 - 1.30 mg/dL Glucose See Comment 70 - 199 mg/dL Calcium See Comment 8.5 - 10.3 mg/dL Magnesium Collection Time: 03/07/23 4:49 PM Result Value Ref Range Magnesium See Comment 1.4 - 2.5 mg/dL Phosphorus Collection Time: 03/07/23 4:49 PM Result Value Ref Range Phosphorus, pl See Comment 2.3 - 4.5 mg/dL Beta-hydroxybutyrate Collection Time: 03/07/23 4:49 PM Result Value Ref Range Beta-Hydroxybutyrate 0.9 (H) 0.0 - 0.5 mmol/L eGFR Collection Time: 03/07/23 4:49 PM Result Value Ref Range eGFR See Comment 90 - 130 POCT glucose Collection Time: 03/07/23 5:08 PM Result Value Ref Range Glucose, POC 133 70 - 199 mg/dL POCT glucose Collection Time: 03/07/23 7:08 PM Result Value Ref Range Glucose, POC 129 70 - 199 mg/dL CBC with auto differential Collection Time: 03/07/23 8:27 PM Result Value Ref Range WBC 14.5 (H) 3.8 - 9.9 K/cumm Hgb 10.3 (L) 13.0 - 17.5 g/dL Hct 32.4 (L) 38.9 - 50.3 % Plt 297 150 - 400 K/cumm MPV 9.0 (L) 9.1 - 12.3 fL RBC 3.80 (L) 4.30 - 5.80 M/cumm MCV 85.3 81.3 - 96.4 fL MCH 27.1 27.1 - 33.3 pg MCHC 31.8 (L) 32.3 - 35.7 g/dL RDW CV 13.6 11.1 - 14.9 % RDW SD 42.5 35.7 - 48.1 fL NRBC abs 0.00 0.00 - 0.01 K/cumm Calcium, ionized, whole blood Collection Time: 03/07/23 8:27 PM Result Value Ref Range Ca, ionized, bld 4.34 (L) 4.50 - 5.10 mg/dL Differential, auto Collection Time: 03/07/23 8:27 PM Result Value Ref Range Neutrophil abs 10.1 (H) 1.7 - 6.5 K/cumm Imm gran abs 0.3 (H) 0.0 - 0.1 K/cumm Lymphocyte abs 2.5 0.8 - 3.3 K/cumm Monocyte abs 1.3 (H) 0.2 - 0.8 K/cumm Eosinophil abs 0.2 0.0 - 0.5 K/cumm Basophil abs 0.1 0.0 - 0.1 K/cumm Neutrophil pct 69.8 % Imm gran pct 2.1 % Lymphocyte pct 17.3 % Monocyte pct 8.8 % Eosinophil pct 1.5 % Basophil pct 0.5 % POCT glucose Collection Time: 03/07/23 8:29 PM Result Value Ref Range Glucose, POC 129 70 - 199 mg/dL Recent Results (from the past 12 hour(s)) POCT glucose Collection Time: 03/07/23 9:35 AM Result Value Ref Range Glucose, POC 127 70 - 199 mg/dL POCT glucose Collection Time: 03/07/23 10:43 AM Result Value Ref Range Glucose, POC 115 70 - 199 mg/dL Basic metabolic panel Collection Time: 03/07/23 12:20 PM Result Value Ref Range Sodium 139 135 - 145 mmol/L Potassium, pl 3.3 3.3 - 4.9 mmol/L Chloride 104 97 - 110 mmol/L CO2 24 22 - 32 mmol/L Anion gap 11 2 - 15 mmol/L BUN 13 6 - 25 mg/dL Creatinine 0.77 (L) 0.80 - 1.30 mg/dL Glucose 142 70 - 199 mg/dL Calcium 8.2 (L) 8.5 - 10.3 mg/dL Magnesium Collection Time: 03/07/23 12:20 PM Result Value Ref Range Magnesium 2.5 1.4 - 2.5 mg/dL Phosphorus Collection Time: 03/07/23 12:20 PM Result Value Ref Range Phosphorus, pl 4.8 (H) 2.3 - 4.5 mg/dL POCT glucose Collection Time: 03/07/23 12:20 PM Result Value Ref Range Glucose, POC 142 70 - 199 mg/dL eGFR Collection Time: 03/07/23 12:20 PM Result Value Ref Range eGFR >90 90 - 130 mL/min/1.73 m2 POCT glucose Collection Time: 03/07/23 1:55 PM Result Value Ref Range Glucose, POC 151 70 - 199 mg/dL POCT glucose Collection Time: 03/07/23 3:00 PM Result Value Ref Range Glucose, POC 138 70 - 199 mg/dL POCT glucose Collection Time: 03/07/23 4:05 PM Result Value Ref Range Glucose, POC 138 70 - 199 mg/dL Basic metabolic panel Collection Time: 03/07/23 4:49 PM Result Value Ref Range Sodium See Comment 135 - 145 mmol/L Potassium, pl See Comment 3.3 - 4.9 mmol/L Chloride See Comment 97 - 110 mmol/L CO2 See Comment 22 - 32 mmol/L Anion gap See Comment 2 - 15 mmol/L BUN See Comment 6 - 25 mg/dL Creatinine See Comment 0.80 - 1.30 mg/dL Glucose See Comment 70 - 199 mg/dL Calcium See Comment 8.5 - 10.3 mg/dL Magnesium Collection Time: 03/07/23 4:49 PM Result Value Ref Range Magnesium See Comment 1.4 - 2.5 mg/dL Phosphorus Collection Time: 03/07/23 4:49 PM Result Value Ref Range Phosphorus, pl See Comment 2.3 - 4.5 mg/dL Beta-hydroxybutyrate Collection Time: 03/07/23 4:49 PM Result Value Ref Range Beta-Hydroxybutyrate 0.9 (H) 0.0 - 0.5 mmol/L eGFR Collection Time: 03/07/23 4:49 PM Result Value Ref Range eGFR See Comment 90 - 130 POCT glucose Collection Time: 03/07/23 5:08 PM Result Value Ref Range Glucose, POC 133 70 - 199 mg/dL POCT glucose Collection Time: 03/07/23 7:08 PM Result Value Ref Range Glucose, POC 129 70 - 199 mg/dL CBC with auto differential Collection Time: 03/07/23 8:27 PM Result Value Ref Range WBC 14.5 (H) 3.8 - 9.9 K/cumm Hgb 10.3 (L) 13.0 - 17.5 g/dL Hct 32.4 (L) 38.9 - 50.3 % Plt 297 150 - 400 K/cumm MPV 9.0 (L) 9.1 - 12.3 fL RBC 3.80 (L) 4.30 - 5.80 M/cumm MCV 85.3 81.3 - 96.4 fL MCH 27.1 27.1 - 33.3 pg MCHC 31.8 (L) 32.3 - 35.7 g/dL RDW CV 13.6 11.1 - 14.9 % RDW SD 42.5 35.7 - 48.1 fL NRBC abs 0.00 0.00 - 0.01 K/cumm Calcium, ionized, whole blood Collection Time: 03/07/23 8:27 PM Result Value Ref Range Ca, ionized, bld 4.34 (L) 4.50 - 5.10 mg/dL Differential, auto Collection Time: 03/07/23 8:27 PM Result Value Ref Range Neutrophil abs 10.1 (H) 1.7 - 6.5 K/cumm Imm gran abs 0.3 (H) 0.0 - 0.1 K/cumm Lymphocyte abs 2.5 0.8 - 3.3 K/cumm Monocyte abs 1.3 (H) 0.2 - 0.8 K/cumm Eosinophil abs 0.2 0.0 - 0.5 K/cumm Basophil abs 0.1 0.0 - 0.1 K/cumm Neutrophil pct 69.8 % Imm gran pct 2.1 % Lymphocyte pct 17.3 % Monocyte pct 8.8 % Eosinophil pct 1.5 % Basophil pct 0.5 % POCT glucose Collection Time: 03/07/23 8:29 PM Result Value Ref Range Glucose, POC 129 70 - 199 mg/dL No results found. Assessment /Plan Principal Problem: Scrotal abscess Active Problems: Perineal abscess Plan of Care: NEURO: #Acute on Chronic Pain: -holding home tramadol -APAP aston -oxycodone 5 mg prn Overall CAM-ICU: Negative (03/07/23 0800) CV: -Stable PULM: Pulmonary Support: O2 Therapy: Supplemental oxygen O2 Del Method: Nasal cannula O2 Flow Rate (L/min): 2 L/min GI: Diet: Sips with meds Bowel regimen:doc/senna 03/08: Dignicare placed #Hypoalbuminemia: POA #Obesity: POA -BMI 39. 7 -consult nutrition and DM investment analyst ENDO: #Hyperglycemia:POA #DKA: POA -AGMA on admission, +2 ketones in urine, BG > 300 -03/06: Beta hydroxybutyrate +0.9 after resuscitation and on gtt #New onset Diabetes: -HbA1C 13.3 -c/s endocrinology -c/s to DM education -insulin gtt : #Soft Tissue Skin infection: POA #Yamila's Gangrene:POA -urology/ACCS following OR: 03/06, 03/07 -Wound Vac -follow Cx -Abx RENAL: Lab Results Component Value Date CREATININE See Comment 03/07/2023 #Hyponatremia:POA -likely pseudohyponatremia 2/2 hyperglycemia #Hypocalcemia:POA -when calculated with albumin -continue to replace HEME: #ABLA: -2/2 skin infection requiring OR #AOCD:POA Lab Results Component Value Date HGB 10.3 (L) 03/07/2023 -No s/s bleeding, no indication for transfusion, continue to monitor closely #Coagulopathy: POA -elevated INR -likely 2/2 poor nutritional state/infection ID: #Leukocytosis:POA #Soft tissue Skin Infection:POA -24h Clinda complete -Vanc/Martha Lab Results Component Value Date WBC 14.5 (H) 03/07/2023 #Diabetic Foot ulcers:POA -2 ulcers on L foot -c/s podiatry -continue abx -Xrays on admission no osteo however if concern MRI is test of choice -03/07 Debrided by podiatry dry sterile dressing consisting of betadine, 4x4s, kerlix. - Wound care: recommend daily betadine paint and dry sterile dressing - Weight bearing status: WBAT in heel strike shoe per PT - Advised diabetic shoes with custom offloading inserts for alf sheogear 03/07:Duplex imaging of the bilateral lower extremity [place] arteries reveals patent vessels with no flow limiting lesions identified Culture Results: No data to display Lab Results Component Value Date MICROBIOLOGY Preliminary Report: Culture results pending. (.) 03/06/2023 MICROBIOLOGY Preliminary Report: Culture results pending. (.) 03/06/2023 MICROBIOLOGY Preliminary Report: Culture results pending. (.) 03/06/2023 MICROBIOLOGY Preliminary Report: No growth to date. 03/06/2023 MICROBIOLOGY Preliminary Report: No growth to date. 03/06/2023 Assessment and plan has been reviewed with the Critical Care Fellow who reviewed the plan with the SICU attending. Matheus Frias PA-C Critical Care Performed by: Matheus Frias PA Authorized by: Matheus Frias PA CRITICAL CARE: Team: OTHER Shift: PM Level of Billing: Subsequent Hospital Visit Level 3 My time spent with this patient was 65 minutes: Critical Provider Statement: I have seen and examined the patient on this day of service. I have reviewed and confirmed the history, physical exam, laboratory, and radiographic data as documented in the ICU note. I have reviewed and discussed my treatment plan with the patient's team and other medical/corporate consultant staff. This time was in addition to and separate from care provided by other practitioners on this day of service. I spent time reviewing and interpreting data from bedside monitors, laboratory results, and imaging, I spent time discussing the management of this critically ill patient with consultants and the medical staff and I spent time documenting in the medical record * Meghana Rice MD - 03/07/2023 9:02 PM CDT [facility] Acute Care Emergency Surgery Consult Progress Note Date: March 07, 2023 Patient Name: Rene Hyatt Reason for Consult: Rusty Amos II Length of Stay: 1 POD:Day of Surgery Procedure(s): EXAM UNDER ANESTHESIA EXCISIONAL DEBRIDEMENT SCROTUM AND PERINEUM SUBJECTIVE Interval History: - No acute events overnight. Patient remains stable, resting comfortably in bed. - s/p return to OR with urology today with further debridement and wound vac placement - Patient is having moderate pain that is fairly controlled. - No complaints of N/V. FMS in place . Patient has not been out of bed. OBJECTIVE Medications: Current Facility-Administered Medications: acetaminophen (TYLENOL) tablet 1,000 mg, 1,000 mg, oral, Q6H [facility], Matheus Frias PA, 1,000 mg at 03/07/23 1821 dextrose (D10W) 10% bolus 250 mL, 250 mL, intravenous, Q15 Min PRN, Mckayla Iyer NP dextrose 5% infusion, 100 mL/hr, intravenous, Continuous, Mckayla Iyer NP, Last Rate: 100 mL/hr at 03/07/23 1800, 100 mL/hr at 03/07/23 1800 docusate sodium (COLACE) capsule 100 mg, 100 mg, oral, BID, 100 mg at 03/07/231948 OR docusate(COLACE) 10 mg/mL oral liquid 100 mg, 100 mg, feeding tube, BID, Matheus Frias PA, 100 mg at 03/06/232116 enoxaparin (LOVENOX) syringe 40 mg, 40 mg, subcutaneous, Daily-2100, Matheus Frias PA, 40 mg at 03/07/231948 HYDROmorphone (DILAUDID) injection 0.2 mg, 0.2 mg, intravenous, Q2H PRN, Deanna Thompson MD PhD insulin regular in 0.9% sodium chloride (MYXREDLIN) 100 unit/100 mL (1 unit/mL) infusion (premix), 0-30 Units/hr, intravenous, Titrated, Mckayla Iyer NP, Last Rate: 2 mL/hr at 03/07/23 1900, 2 Units/hr at 03/07/23 1900 meropenem (MERREM) 2,000 mg/120 mL in sodium chloride 0.9% (premix) 2,000 mg, 2,000 mg, intravenous, Q8H ASTON, Matheus Frias PA, Stopped at 03/07/23 1426 oxyCODONE (ROXICODONE) tablet 5 mg, 5 mg, oral, Q4H PRN, Deanna Thompson MD PhD, 5 mg at 03/06/23 2250 senna (SENOKOT) tablet 1 tablet, 1 tablet, oral, Daily, Matheus Frias PA, 1 tablet at 03/07/23 1122 vancomycin (VANCOCIN) 2,250 mg in sodium chloride 0.9% 500 mL IVPB, 15 mg/kg, intravenous, Q12H, Matheus Frias PA, Last Rate: 261.3 mL/hr at 03/07/23 1819, 2,250 mg at 03/07/23 1819 Is&Os: I/O last 2 completed shifts: In: 5078.7 [P.O.:990; I.V.:982.7; IV Piggyback:3106] Out: 1000 [Urine:990; Blood:10] I/O this shift: In: - Out: 125 [Urine:125] Physical Exam: 24hr Min/Max: Temp Min: 36.6 ??C (97.8 ??F) Max: 37.2 ??C (99 ??F) Pulse Min: 78 Max: 91 BP Min: 96/52 Max: 132/74 Resp Min: 11 Max: 21 SpO2 Min: 94 % Max: 100 % Vitals: 03/07/231999 BP: Pulse: 87 Resp: 17 Temp: SpO2: 96% GENERAL: No acute distress, non toxic-appearing NEURO: Alert and oriented x3, no focal deficits HEENT: EOMs grossly intact, neck supple, trachea midline RESP: Nonlabored breathing on room air, normal effort CARDIO: Regular rate and rhythm ABDOMEN: Soft, nontender to palpation, nondistended Ext: Warm and well perfused, no edema SKIN: Warm, dry without wounds or lesions Labs/Imaging: Recent Labs Lab Units 03/06/23 2115 03/06/23 0535 WBC K/cumm 21.3* 17.3* HEMOGLOBIN g/dL 11.6* 12.3* HEMATOCRIT % 35.8* 36.7* PLATELETS K/cumm 348 332 Recent Labs Lab Units 03/07/23 2029 03/07/23 1908 03/07/23 1708 03/07/23 1649 03/07/23 1355 03/07/23 1220 03/07/23 0935 03/07/23 0757 SODIUM mmol/L -- -- -- See Comment -- 139 -- 137 POTASSIUM PLASMA mmol/L -- -- -- See Comment -- 3.3 -- 3.3 CHLORIDE mmol/L -- -- -- See Comment -- 104 -- 100 CO2 mmol/L -- -- -- See Comment -- 24 -- 25 BUN SERUM mg/dL -- -- -- See Comment -- 13 -- 13 CREATININE mg/dL -- -- -- See Comment -- 0.77* -- 0.74* GLUCOSE mg/dL -- -- -- See Comment -- 142 -- 125 POC GLUCOSE MONITOR mg/dL 129 129 133 -- < > 142 < > 125 CALCIUM mg/dL -- -- -- See Comment -- 8.2* -- 8.1* < > = values in this interval not displayed. Recent Labs Lab Units 03/06/23 1102 PROTIME (PT) sec 18.3* INR 1.61* No results found. ASSESSMENT AND PLAN: 42 y.o. man with a past medical history of non-healing foot wounds who presents with a chief complaint of scrotal vs perineal abscess. # Abscess of the scrotum/perineum - appreciate care per SICU - appreciate care per Urology consult for further debridements - Diet: per primary - cont antibiotics - vancomycin, cefepime, and metronidazole - [facility] will follow peripherally Please call the [facility]S Inpatient Consult Phone with any questions or concerns regarding this patient. Meghana Rice MD Resident Physician General Surgery [facility] Inpatient Consult [facility] ED Consult [facility] Outpatient [facility] - option 1 Cosigned by Darci Leal MD at 03/20/2023 5:01 PM CDT Associated attestation - Darci Leal MD - 03/20/2023 5:01 PM CDT I have seen and examined this patient on the date of service as documented on the resident note andhave reviewed and confirmed the history, physical exam, laboratory, radiographic data, assessment and plan as documented by the resident. Darci Leal MD Section of Acute and Critical Care Surgery Department of Surgery [facility] [employer] * Riya Madison, PT - 03/07/2023 10:15 AM CDT 03/07/23 1015 General PT Missed Visit Reason Procedure/testing/appointment (Pt in OR this morning, PT will continue to monitor.) * James Lai MD - 03/07/2023 8:26 AM CDT INPATIENT UROLOGY PROGRESS NOTE 03/07/2023 Rene Hyatt is a 42 y.o. male on Hospital Day: 2 and 1 Day Post-Op s/p incision and drainage of perineum and scrotum SUBJECTIVE: 24h Interval History: NAEON. VSS. Patient had no acute complaints this morning. Pain is well controlled with oral and IV meds . he julia a NPO Diet with anticipation of take back to OR for further wound debridement. We discussed general surgical plans and expectations of his hospital course this AM. 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 OBJECTIVE: Current Facility-Administered Medications: acetaminophen (TYLENOL) tablet 1,000 mg, 1,000 mg, oral, Q6H Rodriguez CLANCY Shawn C., PA, 1,000 mg at 03/07/23 0607 clindamycin (CLEOCIN) 900 mg/50 mL in dextrose 5% (premix) 900 mg, 900 mg, intravenous, Q8H Rodriguez CLANCY Shawn C., PA, Stopped at 03/07/23 0609 dextrose gel in packet 15 g, 15 g, oral, Q15 Min PRN OR dextrose (D10W) 10% bolus 250 mL, 250 mL, intravenous, Q15 Min PRN, Matheus Frias PA docusate sodium (COLACE) capsule 100 mg, 100 mg, oral, BID OR docusate (COLACE) 10 mg/mL oral liquid 100 mg, 100 mg, feeding tube, BID, Matheus Frias PA, 100 mg at 03/06/232116 enoxaparin (LOVENOX) syringe 40 mg, 40 mg, subcutaneous, Daily-2100, Matheus Frias PA, 40 mg at 03/06/232020 glucagon injection 1 mg, 1 mg, intramuscular, Q30 Min PRN, Matheus Frias PA HYDROmorphone (DILAUDID) injection 0.2 mg, 0.2 mg, intravenous, Q2H PRN, Deanna Thompson MD PhD Nursing communication - ICU Insulin Infusion, , , Continuous AND insulin regular bolus from bag4-10 Units, 4-10 Units, intravenous, PRN AND insulin regular in 0.9% sodium chloride (MYXREDLIN) 100 unit/100 mL (1 unit/mL) infusion (premix), 0-30 Units/hr, intravenous, Titrated, Last Rate: 2 mL/hr at 03/07/23 0800, 2 Units/hr at 03/07/23 0800 AND insulin regular bolus from bag 4-6 Units, 4-6 Units, intravenous, Q1H PRN, 4 Units at 03/06/236 AND POCT glucose, , , q1h AND POCT glucose, , , q2h, Matheus Frias PA meropenem (MERREM) 2,000 mg/120 mL in sodium chloride 0.9% (premix) 2,000 mg, 2,000 mg, intravenous, Q8H ASTON, Matheus Frias PA, Stopped at 03/07/23 0530 oxyCODONE (ROXICODONE) tablet 5 mg, 5 mg, oral, Q4H PRN, Deanna Thompson MD PhD, 5 mg at 03/06/23 2250 senna (SENOKOT) tablet 1 tablet, 1 tablet, oral, Daily, Matheus Frias PA, 1 tablet at 03/06/232020 vancomycin (VANCOCIN) 2,250 mg in sodium chloride 0.9% 500 mL IVPB, 15 mg/kg, intravenous, Q12H, Matheus Frias PA, Stopped at 03/07/23 0700 24hr Min/Max: Temp Min: 36.6 ??C (97.8 ??F) Max: 37.5 ??C (99.5 ??F) Pulse Min: 83 Max: 97 BP Min: 96/52 Max: 148/79 Resp Min: 12 Max: 21 SpO2 Min: 92 % Max: 98 % Most Recent: Vitals: 03/07/23 0700 BP: 98/55 Pulse: 84 Resp: 16 Temp: SpO2: 94% I/O last 2 completed shifts: In: 4698.7 [P.O.:990; I.V.:1675.7; IV Piggyback:2032] Out: 625 [Urine:595; Blood:30] I/O this shift: In: 2 [I.V.:2] Out: 75 [Urine:75] PE: GENERAL: Well-developed, well-nourished, appears stated age. Lying comfortably in bed, no acute distress HEENT: PERRL, sclerae anicteric. EOMI. Mucous membranes moist. RESPIRATORY: Symmetric chest wall expansion with normal respiratory effort. CARDIOVASCULAR: Well-perfused. GASTROINTESTINAL: Soft, non-tender, non-distended. No rebound or guarding : min with clear yellow urine Wounds: Rectal would packed, 1 deep unstagable ulcer on L base of MTP and on distal MTP. See wound note and podiatry c/s Lab/Radiology/Diagnostic Review: Laboratory review: Lab results in the last 12 hours: Recent Results (from the past 12 hour(s)) POCT glucose Collection Time: 03/06/23 10:56 PM Result Value Ref Range Glucose, POC 139 70 - 199 mg/dL POCT glucose Collection Time: 03/06/23 11:53 PM Result Value Ref Range Glucose, POC 129 70 - 199 mg/dL POCT glucose Collection Time: 03/07/23 1:01 AM Result Value Ref Range Glucose, POC 132 70 - 199 mg/dL POCT glucose Collection Time: 03/07/23 1:57 AM Result Value Ref Range Glucose, POC 129 70 - 199 mg/dL POCT glucose Collection Time: 03/07/23 3:53 AM Result Value Ref Range Glucose, POC 111 70 - 199 mg/dL POCT glucose Collection Time: 03/07/23 5:59 AM Result Value Ref Range Glucose, POC 97 70 - 199 mg/dL POCT glucose Collection Time: 03/07/23 6:55 AM Result Value Ref Range Glucose, POC 116 70 - 199 mg/dL Beta-hydroxybutyrate Collection Time: 03/07/23 7:57 AM Result Value Ref Range Beta-Hydroxybutyrate 1.7 (H) 0.0 - 0.5 mmol/L POCT glucose Collection Time: 03/07/23 7:57 AM Result Value Ref Range Glucose, POC 125 70 - 199 mg/dL eGFR Collection Time: 03/07/23 7:57 AM Result Value Ref Range eGFR >90 90 - 130 mL/min/1.73 m2 Basic metabolic panel Collection Time: 03/07/23 7:57 AM Result Value Ref Range Sodium 137 135 - 145 mmol/L Potassium, pl 3.3 3.3 - 4.9 mmol/L Chloride 100 97 - 110 mmol/L CO2 25 22 - 32 mmol/L Anion gap 12 2 - 15 mmol/L BUN 13 6 - 25 mg/dL Creatinine 0.74 (L) 0.80 - 1.30 mg/dL Glucose 125 70 - 199 mg/dL Calcium 8.1 (L) 8.5 - 10.3 mg/dL POCT glucose Collection Time: 03/07/23 9:35 AM Result Value Ref Range Glucose, POC 127 70 - 199 mg/dL ASSESSMENT: Rene Hyatt is a 42 y.o. male with a perineal fluid collection/abscess and likely perineal/scrotal cellulitis, gas on CT scan. Explored yesterday in OR and was found to have significant purulent fluid and necrotic tissue in perineum with anterior extension to inguinal canal, posteriorly extending to rectum without involvement PLAN - To OR for repeat EUA and debridement this AM - Referral to Social Work to assist with management of his home responsibilities - Maintain min for accurate I/Os - Appreciate excellent ICU care James Lai MD Urology PGY-1 03/07/23 8:26 AM Cosigned by Arnaldo Robles MD at 03/07/2023 11:41 AM CDT Associated attestation - Arnaldo Robles MD - 03/07/2023 11:41 AM CDT I have seen and examined the patient on 03/07/23. I agree with the findings and plan of care as documented in the resident's/fellow's note.. * Mckayla Iyer NP - 03/07/2023 7:06 AM CDTAssociated Order(s): Critical Care Post-Procedure Diagnose(s): Scrotal abscess Surgical ICU Daily Progress Team: [facility] 2 AM Subjective Patient is a 42 y.o. male admitted on 03/06/2023 10:24 AM with chief complaint of DKA. Interval History: -to OR this AM with urology for further debridement of his scrotum and perineum with vac placement.Plan will be to take back to the OR Thursday for further debridement and vac removal -Anesthesia totals: 600 crystalloid, UOP 20, 30 toradol, 100 fentanyl 0.6 dilaudid -beta hydroxy still elevated on insulin drip, changed to DKA protocol to provide glucose. Will continue gtt post op until gap closed -recycling attendant and endocrine diabetes consulted -send c-peptide and insulin antibody Objective Physical Exam: General: No Acute Distress Neuro: A&Ox3, follows commands, MAEW Cardiac: S1 and S2, RRR, no M/G/R Pulmonary: Lungs clear to auscultation, respirations even/unlabored Abdominal: Soft/Nontender/Nondistended, hypoactive bowel sounds Extremities: No edema, PPP, warm, pink Drains: Min with clear yellow output, perineal dressing c/d/i Medications Scheduled Meds:acetaminophen, 1,000 mg, oral, Q6H ASTON clindamycin, 900 mg, intravenous, Q8H ASTON docusate sodium, 100 mg, oral, BID Or docusate, 100 mg, feeding tube, BID enoxaparin, 40 mg, subcutaneous, Daily-2100 meropenem, 2,000 mg, intravenous, Q8H ASTON senna, 1 tablet, oral, Daily vancomycin, 15 mg/kg, intravenous, Q12H Continuous Infusions:insulin regular, 0-30 Units/hr, Last Rate: 2 Units/hr (03/07/23 0656) PRN Meds:. dextrose OR dextrose glucagon HYDROmorphone Nursing communication - ICU Insulin Infusion AND insulin regular AND insulin regular AND insulin regular AND POCT glucose AND POCT glucose oxyCODONE Vital signs for last 24 hours: Temp: [36.6 ??C (97.8 ??F)-37.5 ??C (99.5 ??F)] 36.6 ??C (97.8 ??F) Pulse: [83-97] 83 BP: (96-148)/(52-90) 104/54 Resp: [12-21] 17 SpO2: [92 %-98 %] 95 % Hemodynamics: MAP (mmHg): [66-100] 70 Pulmonary Support: O2 Therapy: Supplemental oxygen O2 Del Method: Nasal cannula O2 Flow Rate (L/min): 2 L/min Intake/Output: Intake/Output Summary (Last 24 hours) at 03/07/2023 0706 Last data filed at 03/07/2023 0600 Gross per 24 hour Intake 4698.67 ml Output 625 ml Net 4073.67 ml Lab/Radiology/Diagnostic Review: Laboratory review: reviewed the laboratory result(s) in the last 24 hours Recent Results (from the past 24 hour(s)) Troponin T high-sensitivity 2-hour Collection Time: 03/06/23 7:20 AM Result Value Ref Range Trop T hs 18 <=22 ng/L Trop T hs delta 4 ng/L Trop T hs interp Insignificant Sepsis Lactate w/ Reflex Collection Time: 03/06/23 8:23 AM Result Value Ref Range Sepsis Lactate 1.2 0.7 - 2.0 mmol/L Urinalysis reflex to microscopic and culture Urine Collection Time: 03/06/23 9:24 AM Specimen: Urine Result Value Ref Range Color, ur Yellow Yellow Clarity, ur Clear Clear Specific gravity, ur 1.047 (H) 1.003 - 1.030 pH, urine 6.0 Protein, ur ql 1+ (A) Negative Glucose, ur ql 3+ (A) Negative Ketones, ur 2+ (A) Negative Bilirubin, ur Negative Negative Blood, ur 1+ (A) Negative Urobilinogen, ur <2.0 <2.0 mg/dL Nitrite, ur Negative Negative Leukocyte esterase, ur Negative Negative UA reflex comment Reflex to microscopic UA will be performed. Urinalysis, microscopic only Collection Time: 03/06/23 9:24 AM Result Value Ref Range WBC, ur 0-5 0 - 5 /HPF RBC, ur 6-10 (A) 0 - 2 /HPF Epithelial cells, squamous, ur 6-10 (A) 0 - 5 /HPF Mucous, ur Present (A) Hyaline casts, ur 1-5 0 - 10 /LPF Granular casts, ur 1-5 (A) 0 - 0 /LPF Culture Reflex Comment Reflex conditions for urine culture (WBC >10) not met. Type and screen Collection Time: 03/06/23 11:02 AM Result Value Ref Range Keenan, indirect Negative ABO Rh B Negative Protime-INR Collection Time: 03/06/23 11:02 AM Result Value Ref Range PT 18.3 (H) 10.3 - 13.7 sec INR 1.61 (H) 0.90 - 1.20 Sepsis Lactate w/ Reflex Collection Time: 03/06/23 11:02 AM Result Value Ref Range Sepsis Lactate 1.8 0.7 - 2.0 mmol/L Check Sample Collection Time: 03/06/23 12:17 PM Result Value Ref Range ABO Rh B Negative POCT glucose Collection Time: 03/06/23 4:08 PM Result Value Ref Range Glucose, POC 298 (H) 70 - 199 mg/dL Aerobic and anaerobic culture and gram stain Abscess Scrotum Collection Time: 03/06/23 5:17 PM Specimen: Scrotum; Abscess Result Value Ref Range Direct Specimen Exam (.) Stain: Abundant polymorphonuclear leukocytes seen. Abundant Gram Positive Cocci Abundant Gram Negative Bacilli Moderate Gram Positive Bacilli Tissue aerobic and anaerobic culture and gram stain Tissue Scrotum Collection Time: 03/06/23 5:18 PM Specimen: Scrotum; Tissue Result Value Ref Range Direct Specimen Exam (.) Stain: Rare polymorphonuclear leukocytes seen. Abundant Gram Positive Cocci Abundant Gram Negative Bacilli Moderate Gram Positive Bacilli Aerobic and anaerobic culture and gram stain Abscess Scrotum Collection Time: 03/06/23 5:26 PM Specimen: Scrotum; Abscess Result Value Ref Range Direct Specimen Exam (.) Stain: Moderate polymorphonuclear leukocytes seen. Moderate Gram Positive Cocci Moderate Gram Positive Bacilli Moderate Gram Negative Bacilli POCT glucose Collection Time: 03/06/23 5:40 PM Result Value Ref Range Glucose, POC 277 (H) 70 - 199 mg/dL POCT glucose Collection Time: 03/06/23 6:17 PM Result Value Ref Range Glucose, POC 269 (H) 70 - 199 mg/dL POCT glucose Collection Time: 03/06/23 6:52 PM Result Value Ref Range Glucose, POC 282 (H) 70 - 199 mg/dL POCT glucose Collection Time: 03/06/23 7:56 PM Result Value Ref Range Glucose, POC 238 (H) 70 - 199 mg/dL POCT glucose Collection Time: 03/06/23 8:59 PM Result Value Ref Range Glucose, POC 234 (H) 70 - 199 mg/dL Comprehensive metabolic panel Collection Time: 03/06/23 9:15 PM Result Value Ref Range Sodium 140 135 - 145 mmol/L Potassium, pl 3.5 3.3 - 4.9 mmol/L Chloride 101 97 - 110 mmol/L CO2 26 22 - 32 mmol/L Anion gap 13 2 - 15 mmol/L BUN 14 6 - 25 mg/dL Creatinine 0.79 (L) 0.80 - 1.30 mg/dL Glucose 217 (H) 70 - 199 mg/dL Calcium 8.3 (L) 8.5 - 10.3 mg/dL Bilirubin, total 0.4 0.1 - 1.2 mg/dL Protein, pl 5.9 (L) 6.5 - 8.5 g/dL Albumin 2.4 (L) 3.5 - 5.0 g/dL Alk phos 113 40 - 130 Units/L ALT 15 7 - 55 Units/L AST 25 10 - 50 Units/L Magnesium Collection Time: 03/06/23 9:15 PM Result Value Ref Range Magnesium 2.0 1.4 - 2.5 mg/dL Phosphorus Collection Time: 03/06/23 9:15 PM Result Value Ref Range Phosphorus, pl 4.3 2.3 - 4.5 mg/dL Calcium, ionized Collection Time: 03/06/23 9:15 PM Result Value Ref Range Calcium, Ionized 4.15 (L) 4.50 - 5.10 mg/dL Lactate Collection Time: 03/06/23 9:15 PM Result Value Ref Range Lactate 1.9 0.7 - 2.0 mmol/L CBC with auto differential Collection Time: 03/06/23 9:15 PM Result Value Ref Range WBC 21.3 (H) 3.8 - 9.9 K/cumm Hgb 11.6 (L) 13.0 - 17.5 g/dL Hct 35.8 (L) 38.9 - 50.3 % Plt 348 150 - 400 K/cumm MPV 9.3 9.1 - 12.3 fL RBC 4.23 (L) 4.30 - 5.80 M/cumm MCV 84.6 81.3 - 96.4 fL MCH 27.4 27.1 - 33.3 pg MCHC 32.4 32.3 - 35.7 g/dL RDW CV 13.3 11.1 - 14.9 % RDW SD 41.1 35.7 - 48.1 fL NRBC abs 0.00 0.00 - 0.01 K/cumm Beta-hydroxybutyrate Collection Time: 03/06/23 9:15 PM Result Value Ref Range Beta-Hydroxybutyrate 0.9 (H) 0.0 - 0.5 mmol/L Differential, auto Collection Time: 03/06/23 9:15 PM Result Value Ref Range Neutrophil abs 16.7 (H) 1.7 - 6.5 K/cumm Imm gran abs 0.4 (H) 0.0 - 0.1 K/cumm Lymphocyte abs 2.1 0.8 - 3.3 K/cumm Monocyte abs 1.9 (H) 0.2 - 0.8 K/cumm Eosinophil abs 0.1 0.0 - 0.5 K/cumm Basophil abs 0.1 0.0 - 0.1 K/cumm Neutrophil pct 78.4 % Imm gran pct 1.8 % Lymphocyte pct 9.8 % Monocyte pct 9.1 % Eosinophil pct 0.5 % Basophil pct 0.4 % eGFR Collection Time: 03/06/23 9:15 PM Result Value Ref Range eGFR >90 90 - 130 mL/min/1.73 m2 Hemoglobin A1c Collection Time: 03/06/23 9:15 PM Result Value Ref Range Hgb A1C 13.3 (H) 4.0 - 5.6 % Estimated Average Glucose 335 mg/dL POCT glucose Collection Time: 03/06/23 9:54 PM Result Value Ref Range Glucose, POC 249 (H) 70 - 199 mg/dL POCT glucose Collection Time: 03/06/23 10:56 PM Result Value Ref Range Glucose, POC 139 70 - 199 mg/dL POCT glucose Collection Time: 03/06/23 11:53 PM Result Value Ref Range Glucose, POC 129 70 - 199 mg/dL POCT glucose Collection Time: 03/07/23 1:01 AM Result Value Ref Range Glucose, POC 132 70 - 199 mg/dL POCT glucose Collection Time: 03/07/23 1:57 AM Result Value Ref Range Glucose, POC 129 70 - 199 mg/dL POCT glucose Collection Time: 03/07/23 3:53 AM Result Value Ref Range Glucose, POC 111 70 - 199 mg/dL POCT glucose Collection Time: 03/07/23 5:59 AM Result Value Ref Range Glucose, POC 97 70 - 199 mg/dL POCT glucose Collection Time: 03/07/23 6:55 AM Result Value Ref Range Glucose, POC 116 70 - 199 mg/dL No results found. Assessment/Plan Principal Problem: Scrotal abscess Active Problems: Perineal abscess NEURO: #Acute Pain: -APAP -PRN Oxy/dilaudid CV: -hemodynamically unsupported PULM: #Acute Respiratory Insufficiency -currently on 2L NC wean as tolerated for SpO2 >92% GI: Diet: NPO for OR Bowel regimen: Doc/Senna ENDO: #Diabetes POA, new diagnosis c/b DKA -continue insulin gtt, change to DKA Protocol with Dextrose source as beta hydroxy still elevated this AM -send c-peptide and insulin antibody - Lab Results Component Value Date HGBA1C 13.3 (H) 03/06/2023 -recycling attendant consulted -endocrine diabetes consulted RENAL: Cr Lab Results Component Value Date CREATININE 0.79 (L) 03/06/2023 -currently with adequate UOP continue to monitor closely HEME: #ABLA Lab Results Component Value Date HGB 11.6 (L) 03/06/2023 -No s/s bleeding, no indication for transfusion, continue to monitor closely ID: #Leukocytosis with #Fourniers gangrene/ POA Lab Results Component Value Date WBC 21.3 (H) 03/06/2023 S/p OR 03/06 with ACES/EGS and Urology for rectal, perineal and scrotal debridement -OR today for further debridement with urology, vac placed -plan to return to OR Thursday to takedown vac and debride further, will evaluate proximity to rectum at that time -follow cultures Antibiotics: Vanc, Martha, Clinda Cultures: 03/06 perineum GPB, GNB, GPC MSK: #LEFT Foot ulcer POA -podiatry following -Arterial duplex's complete Intensive Care Unit Standards of Care: DVT prophylaxis: SCDs, lovenox Vascular access: PIVs Goals of care: FULL CODE Mckayla Iyer AGACNP-BC Critical Care Performed by: Mckayla Iyer NP Authorized by: Mckayla Iyer NP CRITICAL CARE: Team: OTHER Shift: AM Level of Billing: Critical Care My time spent with this patient was 90 minutes: Critical Provider Statement: I have seen and examined the patient on this day of service. I have reviewed and confirmed the history, physical exam, laboratory and radiologic data as documented in thesigned ICU note. I have reviewed and discussed my treatment plan with the ICU team and other medical/corporate consultant staff, making frequent assessments and decisions regarding this patient's complex medical care. Critical Care time was exclusive of time spent performing separately billed procedures, treating other patients, and teaching. This time was in addition to and separate from critical care provided by other practitioners in my group on this day of service. Critical Care was necessary to treat or prevent imminent or life-threatening deterioration of the following conditions: Hypo- or Hyperglycemia This time was spent by me doing the following: I spent time reviewing and interpreting data from bedside monitors, laboratory results, and imaging, I spent time discussing the management of this critically ill patient with consultants and the medical staff and I spent time documenting in the medical record Cosigned by Ursula Ferro MD at 03/07/2023 5:49 PM CDT documented in this encounter H&P Notes * Jamari Whitfield MD - 03/10/2023 7:14 AM CDT I have reviewed the H&P, examined the patient, and endorse the findings as written. Plan of Care : Based on the above findings, I consider Rene Hyatt to be an acceptable risk for : Procedure(s): WOUND (SCROTUM/PERINEUM) EXPLORATION AND DEBRIDEMENT POSSIBLE CLOSURE POSSIBLE WOUND VAC EXCHANGE Cosigned by Hans Negron MD at 03/10/2023 7:31 AM CDT Source Note - Jamari Whitfield MD - 03/06/2023 1:28 PM CDT Urology Consult H&P I was requested to see Rene Hyatt to evaluate for perineal abscess by Carmen Wiseman* History of Present Illness: Rene Hyatt is a 42 y.o. male who presented to the [place] ED with perineal/scrotal pain and swelling and a foot ulcer. CT there showed a perineal fluid collection/abscess with gas in the collection and he was transferred to [place] for surgical care. Prior to coming to the ER he had about 2 weeks of perianal and buttock pain and swelling. About 5 days ago he says this spread to his scrotum. He came to the ER when the pain became unbearable. No LUTS or hematuria. He did not have any fevers.He says his last p.o. was ???2 weeks ago?? . He has been hemodynamically stable and afebrile since presentation. Labs prior to transferred showed very mild hyponatremia and acidosis. Significant hyperglycemia (343). Mild elevated lactate (2.4) which resolved with fluids. And leukocytosis with a left shift and elevated inflammatory markers. Lab Results Component Value Date CREATININE 0.80 03/06/2023 CREATININE 0.80 03/06/2023 WBC 17.3 (H) 03/06/2023 HGB 12.3 (L) 03/06/2023 ( Past Medical History: I personally reviewed the past medical history. History reviewed. No pertinent past medical history. No past surgical history on file. Current Facility-Administered Medications Medication Dose Route Frequency Provider Last Rate Last Admin cefepime (MAXIPIME) 2,000 mg/20 mL in sterile water (premix) 2,000 mg 2,000 mg intravenous Q8H Anil Almanza MD Stopped at 03/06/23 1255 clindamycin (CLEOCIN) 900 mg/50 mL in dextrose 5% (premix) 900 mg 900 mg intravenous Q8H [facility] Anil Birmingham MD Stopped at 03/06/23 1322 vancomycin (VANCOCIN) 2,250 mg in sodium chloride 0.9% 500 mL IVPB 15 mg/kg intravenous Q12H Anil Birmingham MD Current Outpatient Medications Medication Sig Dispense Refill kmitlkdtnpjcq-yjqclpi-lbglphji (EXCEDRIN MIGRAINE) 250-250-65 mg per tablet Take 1 tablet by mouth daily as needed for headaches or pain aspirin 325 mg tablet Take 2 tablets (650 mg total) by mouth daily as needed for pain or headaches doxycycline 100 mg capsule Take 1 tablet/capsule (100 mg total) by mouth 2 (two) times a day x 10 days traMADoL (ULTRAM) 50 mg tablet Take 1 tablet (50 mg total) by mouth every 6 (six) hours as needed for pain x 7 days Allergies: No Known Allergies Family History: History reviewed. No pertinent family history. Social History Tobacco Use Smoking status: None Smokeless tobacco: None Substance and Sexual Activity Drug use: None Sexual activity: None Alcohol Use: Not on file Review of systems: A 10 point ROS was performed and is non contributory other than what is stated in the HPI. Physical Exam Vitals: 03/06/23 1030 03/06/23 1031 03/06/23 1212 03/06/23 1215 BP: 136/76 128/71 125/72 125/72 Pulse: 97 93 89 89 Resp: 15 15 14 21 Temp: 36.9 ??C (98.5 ??F) 37 ??C (98.6 ??F) TempSrc: Oral Oral SpO2: 98% 98% 93% 97% Weight: (!) 156 kg (343 lb 14.7 oz) Height: 198.1 cm (6' 6 ) Constitutional: no acute distress Neurologic: alert and oriented Skin/Integumentary: warm, well perfused Respiratory: Nonlabored breathing Gastrointestinal: soft, non-tender, non-distended Genitourinary: Scrotal erythema and edema, the scrotal skin is soft/non indurated with pitting edema, mildly warm to the touch, no bullae, crepitus, or otherwise obviously necrotic skin, no foul odor, maximally tender area is a few centimeters posterior to the scrotum between the scrotum and the anus, unable to palpate a discrete fluctuant area Labs: The following lab results were personally reviewed by me: Lab Results Component Value Date WBC 17.3 (H) 03/06/2023 HGB 12.3 (L) 03/06/2023 HCT 36.7 (L) 03/06/2023 MCV 83.0 03/06/2023 LABPLAT 332 03/06/2023 Lab Results Component Value Date GLUCOSE 343 (H) 03/06/2023 CALCIUM 9.0 03/06/2023 SODIUM 133 (L) 03/06/2023 POTASSIUM 3.5 03/06/2023 CO2 21 (L) 03/06/2023 CHLORIDE 93 (L) 03/06/2023 BUNSER 16 03/06/2023 CREATININE 0.80 03/06/2023 No results found for: COLORU , CLARITYU , SPECGRAVU , PHURINE , PROTURQL , GLUCOSEUR , KETONESU , BILIRUBINUR , BLOODUR , UROBILINOGEN , NITRITEU , LEUKESTUR , WBCU , RBCU , EPISQUAMU , BACTERIAU , MUCUSU Images: The following images were personally reviewed by me. CT Abdomen Pelvis W Contrast EXAM DESCRIPTION: CT ABDOMEN PELVIS W CONTRAST REASON FOR STUDY: Abdominal infection suspected, is there abscess or cellulitis c/o scrotal pain x 2 weeks. Pt reports that he had an infection in his buttcrack that went down to his scrotum TECHNIQUE: CT scan of the abdomen and pelvis performed with intravenous and without oral contrast using helical scanning technique with dynamic intravenous contrast injection. Reconstructed coronal and sagittal MPR images reviewed. All images stored on PACS. Automated exposure control was used as a dose optimization technique for this examination. CONTRAST TYPE/DOSE: 100mL of IOVERSOL 350 MG IODINE/ML INTRAVENOUS SYRINGE injected via intravenous COMPARISON: None available REFERENCE: Per ACR white paper recommendations, unless otherwise specified no follow-up imaging is recommended for incidental renal and adrenal lesions per consensus recommendations based on imaging criteria. Further lab evaluation could be pursued based on clinical findings. FINDINGS: LOWER CHEST: No significant pulmonary abnormalities. No effusion. LIVER: Normal size. No identified cystic or solid masses. GALLBLADDER: Normally distended BILE DUCTS: No intrahepatic or extrahepatic ductal dilatation. SPLEEN: Normal size. No focal lesions. PANCREAS: No identified cystic or solid masses. No significant calcifications. No adjacent inflammation or peripancreatic fluid collections. Pancreatic duct not dilated. ADRENALS: Normal. KIDNEYS/URINARY TRACT: No identified significant cystic or solid masses. No visualized stones. No hydronephrosis or hydroureter. Symmetric enhancement. Urinary bladder is unremarkable. GI: No dilated bowel loops. No obvious wall thickening. Normal appendix. No significant diverticular disease. PERITONEUM: No ascites or free air. RETROPERITONEUM: Moderate-sized lymph nodes along the iliac deanne chains and inguinal regions. Smaller lymph nodes along the retroperitoneum. REPRODUCTIVE: Soft tissue thickening throughout the scrotum hydroceles. This becomes contiguous with additional swelling extending towards the peroneal surface posteriorly. Subcutaneous oval lesion measures 7.5 by 4.9 cm suggesting a subcutaneous fluid collection or abscess. Central lucencies consistent with air collections. This could represent a cellulitis with abscess. However, consider necrotizing fasciitis/Yamila's gangrene. VASCULATURE: No abdominal aortic aneurysm. MUSCULOSKELETAL: No significant abnormality. OTHER: No other abnormality. IMPRESSION: Extensive soft tissue thickening throughout the scrotum extending towards the peroneal surface posteriorly. 7.5 cm subcutaneous fluid collection with air collections suggesting abscess. However, consider necrotizing fasciitis/Yamila's gangrene. Moderate-sized lymph nodes along the iliac deanne chains and inguinal regions likely reactive in nature. THIS IS AN ELECTRONICALLY VERIFIED FINAL REPORT 03/06/2023 6:46 AM - Electronically signed by Wander García M.D. RB: SALLY Report ID: [id number] Reading Location: [place] [address] Assessment and Plan: Rene Hyatt is a 42 y.o. male with a perineal fluid collection/abscess and likely perineal/scrotal cellulitis. Exam and stability reassuring against a necrotizing infection. We would recommend drainage of the abscess in the OR and limited exploration to more definitively exclude NSTI. Discussed w general surgery, will be a joint case. Keep NPO Add on for urgent I&D, EUA w ACCS Agree w admission to medicine postoperatively Thank you for allowing us to participate in the care of this patient. Please do not hesitate to contact us by paging the adoption worker urology resident. Jamari Whitfield MD 03/06/23 Urology Resident Cosigned by Pilar Johnson MD at 03/06/2023 3:11 PM CDT * Matheus Frias PA - 03/06/2023 7:17 PM CDTAssociated Order(s): Critical Care Images from the original note were not included. ICU History and Physical Team: Other PM Subjective Patient is a 42 y.o. male presented to the ICU with chief complaint of necrotizing skin infection. Events: -3g Ca gluc -Martha/vanc -clinda x 24 -500 LR -60K -4g Mag -Wound Cx + GPC, GPB, GNB - Reviewed and ordered pertinent laboratory tests. Reviewed any Radiological imaging pertinent to patients current treatments. Constant evaluation of I/O's, vitals and oxygen requirements throughout shift. Multiple bedside evaluations of patients over all status. HPI: 42 y/o M presented to OSH with scrotal swelling (Yamila's gangrene) c/f soft tissue infection andulcer on left foot. 03/06:OR I/D scrotum to perirectal area, packed with Dakins, 1.8L crystalloid, 50EBL, abx, Insulin gtt. History reviewed. No pertinent past medical history. History reviewed. No pertinent surgical history. Medications Prior to Admission Medication Sig Dispense Refill Last Dose rwxadkiyypqbl-vixgrho-iiebhfmj (EXCEDRIN MIGRAINE) 250-250-65 mg per tablet Take 1 tablet by mouth daily as needed for headaches or pain aspirin 325 mg tablet Take 2 tablets (650 mg total) by mouth daily as needed for pain or headaches doxycycline 100 mg capsule Take 1 tablet/capsule (100 mg total) by mouth 2 (two) times a day x 10 days traMADoL (ULTRAM) 50 mg tablet Take 1 tablet (50 mg total) by mouth every 6 (six) hours as needed for pain x 7 days No Known Allergies Social History Tobacco Use Smoking status: None Smokeless tobacco: None Substance and Sexual Activity Drug use: None Sexual activity: None Alcohol Use: Not on file History reviewed. No pertinent family history. Review of Systems: All review of systems are negative except for buttock pain Vitals: Most Recent : Vitals: 03/06/23 1842 BP: Pulse: Resp: Temp: 37.1 ??C (98.7 ??F) SpO2: Hemodynamics: MAP (mmHg): [86-92] 92 Intake/Output: Date 03/05/231899 - 03/06/23 0659(Not Admitted) 03/06/23 07 - 03/07/23 0659 Shift 8624-9766 24 Hour Total 5987-0831 5748-5229 24 Hour Total INTAKE I.V. 1600(10.3) 1600(10.3) IV Piggyback 140 140 Shift Total(mL/kg) 1740(11.2) 1740(11.2) OUTPUT Blood 30 30 Shift Total(mL/kg) 30(0.2) 30(0.2) NET 1710 1710 Weight (kg) 156 156 156 Objective Physical exam: Gen: NAD Neuro: A&Ox3, non-focal, follows commands, MAEW HEENT: Head NC/AT, face symmetrical, PERRLA CV: S1 and S2 without M/C/R, RRR Pulm: LCTA, respirations even/unlabored GI: Abdomen Obese Soft/NT/ND, normoactive bowel sounds : Min to gravity Skin: Warm, dry, good turgor Extremities: No edema, PPP Wounds: Rectal would packed, 1 deep unstagable ulcer on L base of MTP and on distal MTP. See wound note and podiatry c/s Access: PIC Lab/Radiology/Diagnostic Review: Laboratory review: Lab results in the last 24 hours: Recent Results (from the past 24 hour(s)) CBC with auto differential Collection Time: 03/06/23 5:35 AM Result Value Ref Range WBC 17.3 (H) 3.8 - 9.9 K/cumm Hgb 12.3 (L) 13.0 - 17.5 g/dL Hct 36.7 (L) 38.9 - 50.3 % Plt 332 150 - 400 K/cumm MPV 9.2 9.1 - 12.3 fL RBC 4.42 4.30 - 5.80 M/cumm MCV 83.0 81.3 - 96.4 fL MCH 27.8 27.1 - 33.3 pg MCHC 33.5 32.3 - 35.7 g/dL RDW CV 12.8 11.1 - 14.9 % RDW SD 38.8 35.7 - 48.1 fL NRBC abs 0.00 0.00 - 0.01 K/cumm Comprehensive metabolic panel Collection Time: 03/06/23 5:35 AM Result Value Ref Range Sodium 133 (L) 135 - 145 mmol/L Potassium, pl 3.5 3.3 - 4.9 mmol/L Chloride 93 (L) 97 - 110 mmol/L CO2 21 (L) 22 - 32 mmol/L Anion gap 19 (H) 2 - 15 mmol/L BUN 16 6 - 25 mg/dL Creatinine 0.80 0.80 - 1.30 mg/dL Glucose 343 (H) 70 - 199 mg/dL Calcium 9.0 8.5 - 10.3 mg/dL Bilirubin, total 0.4 0.1 - 1.2 mg/dL Protein, pl 7.1 6.5 - 8.5 g/dL Albumin 2.7 (L) 3.5 - 5.0 g/dL Alk phos 142 (H) 40 - 130 Units/L ALT 15 7 - 55 Units/L AST 21 10 - 50 Units/L Sepsis Lactate w/ Reflex Collection Time: 03/06/23 5:35 AM Result Value Ref Range Sepsis Lactate 2.4 (Critical) 0.7 - 2.0 mmol/L Pro B-type natriuretic peptide Collection Time: 03/06/23 5:35 AM Result Value Ref Range NT-proBNP 362 (H) <=300 pg/mL CRP (acute phase) Collection Time: 03/06/23 5:35 AM Result Value Ref Range CRP 272.2 (H) <=10.0 mg/L Erythrocyte sedimentation rate Collection Time: 03/06/23 5:35 AM Result Value Ref Range Erythrocyte sedimentation rate 103 (H) 1 - 15 mm/hr Troponin T high-sensitivity series (baseline, 2hr, 4hr, 6hr) Collection Time: 03/06/23 5:35 AM Result Value Ref Range Trop T hs 14 <=22 ng/L Differential, auto Collection Time: 03/06/23 5:35 AM Result Value Ref Range Neutrophil abs 13.4 (H) 1.7 - 6.5 K/cumm Imm gran abs 0.2 (H) 0.0 - 0.1 K/cumm Lymphocyte abs 2.1 0.8 - 3.3 K/cumm Monocyte abs 1.4 (H) 0.2 - 0.8 K/cumm Eosinophil abs 0.1 0.0 - 0.5 K/cumm Basophil abs 0.1 0.0 - 0.1 K/cumm Neutrophil pct 77.7 % Imm gran pct 0.9 % Lymphocyte pct 12.3 % Monocyte pct 8.2 % Eosinophil pct 0.6 % Basophil pct 0.3 % eGFR Collection Time: 03/06/23 5:35 AM Result Value Ref Range eGFR 113 mL/min/1.73 m2 POCT creatinine for contrast evaluation Collection Time: 03/06/23 5:44 AM Result Value Ref Range Creatinine POC 0.80 0.80 - 1.30 mg/dL POCT creatinine for contrast evaluation Collection Time: 03/06/23 5:53 AM Result Value Ref Range Creatinine, POC 0.8 0.6 - 1.3 mg/dL Lot Number 0 QC High 1.3 QC Low 0.6 QC Pass/Fail Pass Troponin T high-sensitivity 2-hour Collection Time: 03/06/23 7:20 AM Result Value Ref Range Trop T hs 18 <=22 ng/L Trop T hs delta 4 ng/L Trop T hs interp Insignificant Sepsis Lactate w/ Reflex Collection Time: 03/06/23 8:23 AM Result Value Ref Range Sepsis Lactate 1.2 0.7 - 2.0 mmol/L Urinalysis reflex to microscopic and culture Urine Collection Time: 03/06/23 9:24 AM Specimen: Urine Result Value Ref Range Color, ur Yellow Yellow Clarity, ur Clear Clear Specific gravity, ur 1.047 (H) 1.003 - 1.030 pH, urine 6.0 Protein, ur ql 1+ (A) Negative Glucose, ur ql 3+ (A) Negative Ketones, ur 2+ (A) Negative Bilirubin, ur Negative Negative Blood, ur 1+ (A) Negative Urobilinogen, ur <2.0 <2.0 mg/dL Nitrite, ur Negative Negative Leukocyte esterase, ur Negative Negative UA reflex comment Reflex to microscopic UA will be performed. Urinalysis, microscopic only Collection Time: 03/06/23 9:24 AM Result Value Ref Range WBC, ur 0-5 0 - 5 /HPF RBC, ur 6-10 (A) 0 - 2 /HPF Epithelial cells, squamous, ur 6-10 (A) 0 - 5 /HPF Mucous, ur Present (A) Hyaline casts, ur 1-5 0 - 10 /LPF Granular casts, ur 1-5 (A) 0 - 0 /LPF Culture Reflex Comment Reflex conditions for urine culture (WBC >10) not met. Type and screen Collection Time: 03/06/23 11:02 AM Result Value Ref Range Keenan, indirect Negative ABO Rh B Negative Protime-INR Collection Time: 03/06/23 11:02 AM Result Value Ref Range PT 18.3 (H) 10.3 - 13.7 sec INR 1.61 (H) 0.90 - 1.20 Sepsis Lactate w/ Reflex Collection Time: 03/06/23 11:02 AM Result Value Ref Range Sepsis Lactate 1.8 0.7 - 2.0 mmol/L Check Sample Collection Time: 03/06/23 12:17 PM Result Value Ref Range ABO Rh B Negative POCT glucose Collection Time: 03/06/23 4:08 PM Result Value Ref Range Glucose, POC 298 (H) 70 - 199 mg/dL POCT glucose Collection Time: 03/06/23 5:40 PM Result Value Ref Range Glucose, POC 277 (H) 70 - 199 mg/dL POCT glucose Collection Time: 03/06/23 6:17 PM Result Value Ref Range Glucose, POC 269 (H) 70 - 199 mg/dL POCT glucose Collection Time: 03/06/23 6:52 PM Result Value Ref Range Glucose, POC 282 (H) 70 - 199 mg/dL Recent Results (from the past 12 hour(s)) Troponin T high-sensitivity 2-hour Collection Time: 03/06/23 7:20 AM Result Value Ref Range Trop T hs 18 <=22 ng/L Trop T hs delta 4 ng/L Trop T hs interp Insignificant Sepsis Lactate w/ Reflex Collection Time: 03/06/23 8:23 AM Result Value Ref Range Sepsis Lactate 1.2 0.7 - 2.0 mmol/L Urinalysis reflex to microscopic and culture Urine Collection Time: 03/06/23 9:24 AM Specimen: Urine Result Value Ref Range Color, ur Yellow Yellow Clarity, ur Clear Clear Specific gravity, ur 1.047 (H) 1.003 - 1.030 pH, urine 6.0 Protein, ur ql 1+ (A) Negative Glucose, ur ql 3+ (A) Negative Ketones, ur 2+ (A) Negative Bilirubin, ur Negative Negative Blood, ur 1+ (A) Negative Urobilinogen, ur <2.0 <2.0 mg/dL Nitrite, ur Negative Negative Leukocyte esterase, ur Negative Negative UA reflex comment Reflex to microscopic UA will be performed. Urinalysis, microscopic only Collection Time: 03/06/23 9:24 AM Result Value Ref Range WBC, ur 0-5 0 - 5 /HPF RBC, ur 6-10 (A) 0 - 2 /HPF Epithelial cells, squamous, ur 6-10 (A) 0 - 5 /HPF Mucous, ur Present (A) Hyaline casts, ur 1-5 0 - 10 /LPF Granular casts, ur 1-5 (A) 0 - 0 /LPF Culture Reflex Comment Reflex conditions for urine culture (WBC >10) not met. Type and screen Collection Time: 03/06/23 11:02 AM Result Value Ref Range Keenan, indirect Negative ABO Rh B Negative Protime-INR Collection Time: 03/06/23 11:02 AM Result Value Ref Range PT 18.3 (H) 10.3 - 13.7 sec INR 1.61 (H) 0.90 - 1.20 Sepsis Lactate w/ Reflex Collection Time: 03/06/23 11:02 AM Result Value Ref Range Sepsis Lactate 1.8 0.7 - 2.0 mmol/L Check Sample Collection Time: 03/06/23 12:17 PM Result Value Ref Range ABO Rh B Negative POCT glucose Collection Time: 03/06/23 4:08 PM Result Value Ref Range Glucose, POC 298 (H) 70 - 199 mg/dL POCT glucose Collection Time: 03/06/23 5:40 PM Result Value Ref Range Glucose, POC 277 (H) 70 - 199 mg/dL POCT glucose Collection Time: 03/06/23 6:17 PM Result Value Ref Range Glucose, POC 269 (H) 70 - 199 mg/dL POCT glucose Collection Time: 03/06/23 6:52 PM Result Value Ref Range Glucose, POC 282 (H) 70 - 199 mg/dL No results found. Assessment /Plan Principal Problem: Scrotal abscess Active Problems: Perineal abscess Plan of Care: NEURO: #Acute on Chronic Pain: -holding home tramadol -APAP aston -oxycodone 5 mg prn -Dilaudid IV CV: -Stable PULM: Pulmonary Support: O2 Therapy: None (Room air) GI: Diet: ADAT Bowel regimen:doc/senna #Hypoalbuminemia: POA #Obesity: POA -BMI 39. 7 -consult nutrition and DM investment analyst ENDO: #Hyperglycemia:POA #DKA: POA -AGMA on admission, +2 ketones in urine, BG > 300 -03/06: Beta hydroxybutyrate +0.9 after resuscitation and on gtt #New onset Diabetes: -HbA1C 13.3 -c/s endocrinology -c/s to DM education -insulin gtt : #Soft Tissue Skin infection: POA #Yamila's Gangrene:POA -urology/ACCS following RENAL: Lab Results Component Value Date CREATININE 0.80 03/06/2023 #Hyponatremia:POA -likely pseudohyponatremia 2/2 hyperglycemia HEME: #ABLA: -2/2 skin infection requiring OR #AOCD:POA Lab Results Component Value Date HGB 12.3 (L) 03/06/2023 -No s/s bleeding, no indication for transfusion, continue to monitor closely #Coagulopathy: POA -elevated INR -likely 2/2 poor nutritional state/infection ID: #Leukocytosis:POA #Soft tissue Skin Infection:POA Lab Results Component Value Date WBC 17.3 (H) 03/06/2023 #Diabetic Foot ulcers:POA -2 ulcers on L foot -c/s podiatry -continue abx -Xrays on admission no osteo however if concern MRI is test of choice Culture Results: No data to display No results found for: MICROBIOLOGY Assessment and plan has been reviewed with the Critical Care Fellow who reviewed the plan with the SICU attending. Matheus Frias PA-C Critical Care Performed by: Matheus Frias PA Authorized by: Matheus Frias PA CRITICAL CARE: Team: OTHER Shift: PM Level of Billing: Critical Care My time spent with this patient was 95 minutes: Critical Provider Statement: I have seen and examined the patient on this day of service. I have reviewed and confirmed the history, physical exam, laboratory and radiologic data as documented in thesigned ICU note. I have reviewed and discussed my treatment plan with the ICU team and other medical/corporate consultant staff, making frequent assessments and decisions regarding this patient's complex medical care. Critical Care time was exclusive of time spent performing separately billed procedures, treating other patients, and teaching. This time was in addition to and separate from critical care provided by other practitioners in my group on this day of service. Critical Care was necessary to treat or prevent imminent or life-threatening deterioration of the following conditions: I spent time reviewing and interpreting data from bedside monitors, laboratory results, and imaging, I spent time discussing the management of this critically ill patient with consultants and the medical staff and I spent time documenting in the medical record Cosigned by Deanna Thompson MD PhD at 03/07/2023 5:34 AM CDT documented in this encounter Consult Notes * Marina Royal, RD - 03/25/2023 11:19 AM CDT NUTRITION ASSESSMENT Nutrition Status: Patient appears adequately nourished at this time. REASON FOR ASSESSMENT: Consult/Referral - Diet Education Encounter Date: 03/25/23 11:19 AM Admission Date: 03/06/2023 LOS: 19 days HPI: Pt is a 42-year-old male previously healthy, probably diabetic given his presentation, who was transferred from [facility] for scrotal swelling, scrotal abscess and possible Yamila's gangrene. Objective Past Medical History: Diagnosis Date Hypertension 03/16/2023 Type 2 diabetes mellitus (HCC) History reviewed. No pertinent surgical history. Social History Tobacco Use Smoking status: Never Smokeless tobacco: None Substance and Sexual Activity Drug use: None Sexual activity: None Alcohol Use: Not At Risk (03/12/2023) AUDIT-C Frequency of Alcohol Consumption: Never Average Number of Drinks: Patient does not drink Frequency of Binge Drinking: Never MEDICATION/LAB REVIEW: Scheduled Med's: acetaminophen, 1,000 mg, oral, Q6H ASTON ampicillin-sulbactam, 3 g, intravenous, Q6H ASTON atorvastatin, 20 mg, oral, Nightly calcium carbonate, 500 mg of elemental calcium, oral, BID enoxaparin, 40 mg, subcutaneous, Q12H ASTON ergocalciferol, 50,000 Units, oral, Once per day on Mon Inna insulin glargine, 20 Units, subcutaneous, Nightly insulin lispro, 0-10 Units, subcutaneous, TID with meals insulin lispro, 0-5 Units, subcutaneous, Nightly insulin lispro, 12 Units, subcutaneous, TID with meals losartan, 25 mg, oral, Daily micafungin, 100 mg, intravenous, Q24H ASTON pantoprazole DR, 40 mg, oral, Daily Continuous Infusions: PRN Med's: dextrose OR dextrose glucagon ondansetron oxyCODONE prochlorperazine ramelteon simethicone white petrolatum-mineral oiL Recent Labs Lab Units 03/22/23 2301 SODIUM mmol/L 140 POTASSIUM PLASMA mmol/L 4.0 CHLORIDE mmol/L 104 CO2 mmol/L 28 BUN SERUM mg/dL 17 CREATININE mg/dL 0.83 TMR-LPT-RAMBQGT mL/min/1.73 m2 >90 CALCIUM mg/dL 8.5 Recent Labs Lab Units 03/25/23 0819 03/25/23 0451 03/25/23 0136 03/24/23 2147 03/24/23 1650 03/24/23 1322 03/24/23 0838 POC GLUCOSE MONITOR mg/dL 187 198 192 163 155 153 168 No results found for: ALT , AST , BILIRUBIN , ALKPHOS , LIPASE Lab Results Component Value Date HGBA1C 13.3 (H) 03/06/2023 HDL 20 (L) 03/06/2023 LDLCALC 67 03/06/2023 CHOL 106 03/06/2023 TRIG 93 03/06/2023 NURSING ASSESSMENT: Last BM Date: 03/24/23 Bowel Sounds (All Quadrants): Present Emesis Assessment Emesis Color/Appearance: Red Matthew Scale Score: 18 Skin Integrity: Surgical incision Type of Wound (LDA): Surgical site Surgical Site 03/07/23 Scrotum-Negative Pressure Wound Therapy Used: Yes Wound 03/06/23 Abscess Scrotum reddened scrotum noelle, +edema, tender to touch, not open or weaping-Negative Pressure Wound Therapy Used: Yes Vital Signs BP: 148/72 Temp: 36.6 ??C (97.8 ??F) Pulse: 87 Resp: 18 SpO2: 97 % Intake/Output Summary (Last 24 hours) at 03/25/2023 1119 Last data filed at 03/25/2023 0930 Gross per 24 hour Intake 890 ml Output -- Net 890 ml Adult Malnutrition Scoring Tool (MST) What diet do you follow at home?: regular Have You Recently Lost Weight Without Trying?: No Have you been eating poorly because of a decreased appetite?: No Malnutrition Screening Tool (MST) Score: 0 Anthropometrics Weight: (!) 161.7 kg (356 lb 7.7 oz) Admission Weight : 161.7 kg Weight Change: 5.70 kg (12.56 lbs) IBW/kg (Calculated) : 97.1 kg Height: 198.1 cm (6' 6 ) Weight in (lb) to have BMI = 25: 215.9 BMI (Calculated): 41.2 Wt Readings from Last 10 Encounters: 03/06/23 (!) 161.7 kg (356 lb 7.7 oz) 03/06/23 (!) 156 kg (343 lb 14.7 oz) ESTIMATED NEEDS: . Dietary Orders (From admission, onward) Start Ordered 03/12/23 1508 Adult Diet Restricted; Consistent Carbohydrate Diet effective now Question Answer Comment ([facility]) Diet type Restricted Diabetic: Consistent Carbohydrate 03/12/23 1507 03/09/23 2100 Bedtime snack At bedtime Comments: If bedtime BG is less than 100mg/dl, give patient a 15 gram carbohydrate snack. 03/09/23 1200 Allergies: Reviewed. IMPRESSION: Patient continues to eat well on Consistent CHO diet. Labs/Meds: reviewed and noted. ASPEN MALNUTRITION ASSESSMENT: N/A NUTRITION FOCUSED PHYSICAL EXAM: N/A NUTRITION DIAGNOSIS: Nutrition Diagnosis 1: Inadequate oral intake Related to: Nausea Evidenced by: Patient interview, Physical finding INTERVENTION(S): Summary: Encouragement, Education, Medical food supplement, Regular weights, Education, nutrition, Assess for nutrition changes Continue consistent CHO diet Encourage good PO intake and document % meal eaten in epic Continue vitamin D supplementation per primary service GOAL(S): Oral intake to meet 75% estimated nutritional needs by next assessment, Patient/caregiver able to teach back understanding of role of diet in disease process prior to discharge MONITORING/EVALUATION: Appetite, Labs, Plan of care, Stool patterns, Wound healing, Weight changes Diet Instructions Consistent Carbohydrate Diet: Recommended to continue to follow a consistent carbohydrate diet upondischarge. Nutrition Tips for Blood Glucose Management: Consume balanced meals and snacks including a variety of fruits, vegetables, whole grains, low-fat dairy products, beans, lean meats, and fish. Eat 3 meals per day and try to eat at consistent times. A carbohydrate choice = 15 grams of carbohydrates. Make sure to check nutritional labels for carbohydrate content. Eat 45-60 g or 3-4 carbohydrate choices at each meal. It is not recommended to go longer than 5 hours without having a meal or snack during the day. Consume foods high in fiber such as popcorn, oatmeal, beans, and legumes. Limit intake of concentrated sweets such as cookies, cake, candy, and ice cream. Limit sugar-sweetened beverages such as lemonade, sweet tea, regular soda, juice, and Gatorade. Suggestions for sugar free beverages include: G2 gatorade, SF powerade, and SF Liquid IV. Recommend to follow up with your Primary Care Doctor to ask about seeing a Registered Dietitian. Additional resources available from the [place] [employer] can be found at www.diabetes.org/nutrition Consistent Carbohydrate Diet: Recommended to continue to follow a consistent carbohydrate diet upondischarge. Nutrition Tips for Blood Glucose Management: Consume balanced meals and snacks including a variety of fruits, vegetables, whole grains, low-fat dairy products, beans, lean meats, and fish. Eat 3 meals per day and try to eat at consistent times. A carbohydrate choice = 15 grams of carbohydrates. Make sure to check nutritional labels for carbohydrate content. Eat 45-60 g or 3-4 carbohydrate choices at each meal. It is not recommended to go longer than 5 hours without having a meal or snack during the day. Consume foods high in fiber such as popcorn, oatmeal, beans, and legumes. Limit intake of concentrated sweets such as cookies, cake, candy, and ice cream. Limit sugar-sweetened beverages such as lemonade, sweet tea, regular soda, juice, and Gatorade. Suggestions for sugar free beverages include: G2 gatorade, SF powerade, and SF Liquid IV. Recommend to follow up with your Primary Care Doctor to ask about seeing a Registered Dietitian. Additional resources available from the [place] [employer] can be found at www.diabetes.org/nutrition Marina Royal MS, RD, [facility], Cell * Marina Royal RD - 03/16/2023 2:22 PM CDT NUTRITION ASSESSMENT Nutrition Status: Patient appears adequately nourished at this time. 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 Objective Past Medical History: Diagnosis Date Hypertension 03/16/2023 Type 2 diabetes mellitus (HCC) History reviewed. No pertinent surgical history. Social History Tobacco Use Smoking status: Never Smokeless tobacco: None Substance and Sexual Activity Drug use: None Sexual activity: None Alcohol Use: Not At Risk (03/12/2023) AUDIT-C Frequency of Alcohol Consumption: Never Average Number of Drinks: Patient does not drink Frequency of Binge Drinking: Never MEDICATION/LAB REVIEW: Scheduled Med's: acetaminophen, 1,000 mg, oral, Q6H ASTON ampicillin-sulbactam, 3 g, intravenous, Q6H ASTON atorvastatin, 20 mg, oral, Nightly calcium carbonate, 500 mg of elemental calcium, oral, BID enoxaparin, 40 mg, subcutaneous, Q12H ASTON ergocalciferol, 50,000 Units, oral, Once per day on Mon Inna insulin glargine, 20 Units, subcutaneous, Nightly insulin lispro, 0-10 Units, subcutaneous, TID with meals insulin lispro, 0-5 Units, subcutaneous, Nightly insulin lispro, 12 Units, subcutaneous, TID with meals micafungin, 100 mg, intravenous, Q24H ASTON pantoprazole DR, 40 mg, oral, Daily Continuous Infusions: PRN Med's: dextrose OR dextrose glucagon ondansetron oxyCODONE prochlorperazine simethicone white petrolatum-mineral oiL Recent Labs Lab Units 03/15/23 19303/11/23 2231 03/10/23 2222 03/09/23 2142 SODIUM mmol/L 138 < > 139 137 POTASSIUM PLASMA mmol/L 4.2 < > 4.1 4.2 CHLORIDE mmol/L 102 < > 101 101 CO2 mmol/L 28 < > 31 28 BUN SERUM mg/dL 9 < > 12 11 CREATININE mg/dL 0.83 < > 0.68* 0.56* [id number]-QWX-[id number] mL/min/1.73 m2 >90 < > >90 >90 CALCIUM mg/dL 8.5 < > 8.3* 8.5 ALBUMIN g/dL -- -- -- 2.2* PHOSPHORUS PLASMA mg/dL -- -- 2.9 2.8 MAGNESIUM mg/dL -- -- 2.0 1.7 < > = values in this interval not displayed. Recent Labs Lab Units 03/16/23 0906 03/15/23 2101 03/15/23 1938 03/15/23 1706 03/15/23 1214 03/15/23 0735 03/14/23 1952 GLUCOSE mg/dL -- -- 186 -- -- -- -- POC GLUCOSE MONITOR mg/dL 178 147 -- 208* 176 194 130 No results found for: ALT , AST , BILIRUBIN , ALKPHOS , LIPASE Lab Results Component Value Date HGBA1C 13.3 (H) 03/06/2023 HDL 20 (L) 03/06/2023 LDLCALC 67 03/06/2023 CHOL 106 03/06/2023 TRIG 93 03/06/2023 NURSING ASSESSMENT: Last BM Date: 03/15/23 Bowel Sounds (All Quadrants): Active Emesis Assessment Emesis Color/Appearance: Red Matthew Scale Score: 19 Skin Integrity: Surgical incision Type of Wound (LDA): Wound Surgical Site 03/07/23 Scrotum-Negative Pressure Wound Therapy Used: Yes Wound 03/06/23 Abscess Scrotum reddened scrotum noelle, +edema, tender to touch, not open or weaping-Negative Pressure Wound Therapy Used: Yes Vital Signs BP: 155/80 Temp: 36.8 ??C (98.2 ??F) Pulse: 89 Resp: 16 SpO2: 92 % Intake/Output Summary (Last 24 hours) at 03/16/2023 1422 Last data filed at 03/16/2023 0925 Gross per 24 hour Intake -- Output 2515 ml Net -2515 ml Adult Malnutrition Scoring Tool (MST) What diet do you follow at home?: regular Have You Recently Lost Weight Without Trying?: No Have you been eating poorly because of a decreased appetite?: No Malnutrition Screening Tool (MST) Score: 0 Anthropometrics Weight: (!) 161.7 kg (356 lb 7.7 oz) Admission Weight : 161.7 kg Weight Change: 5.70 kg (12.56 lbs) IBW/kg (Calculated) : 97.1 kg Height: 198.1 cm (6' 6 ) Weight in (lb) to have BMI = 25: 215.9 BMI (Calculated): 41.2 Wt Readings from Last 10 Encounters: 03/06/23 (!) 161.7 kg (356 lb 7.7 oz) 03/06/23 (!) 156 kg (343 lb 14.7 oz) ESTIMATED NEEDS: . Dietary Orders (From admission, onward) Start Ordered 03/12/23 1508 Adult Diet Restricted; Consistent Carbohydrate Diet effective now Question Answer Comment ([facility]) Diet type Restricted Diabetic: Consistent Carbohydrate 03/12/23 1507 03/09/23 2100 Bedtime snack At bedtime Comments: If bedtime BG is less than 100mg/dl, give patient a 15 gram carbohydrate snack. 03/09/23 1200 Allergies: Reviewed. IMPRESSION: Met with patient at bedside. He reported good appetite and PO intake says he is eating 100% of his meals.Consistent carbohydrate diet education provided at previous visit, patient denied any questions at this time. RD will continue to follow. ASPEN MALNUTRITION ASSESSMENT: N/A NUTRITION FOCUSED PHYSICAL EXAM: N/A NUTRITION DIAGNOSIS: Nutrition Diagnosis 1: Inadequate oral intake Related to: Nausea Evidenced by: Patient interview, Physical finding INTERVENTION(S): Summary: Encouragement, Education, Medical food supplement, Regular weights, Education, nutrition, Assess for nutrition changes Continue consistent CHO diet Encourage good PO intake and document % meal eaten in epic Continue vitamin D supplementation per primary service GOAL(S): Oral intake to meet 75% estimated nutritional needs by next assessment, Patient/caregiver able to teach back understanding of role of diet in disease process prior to discharge MONITORING/EVALUATION: Appetite, Labs, Plan of care, Stool patterns, Wound healing, Weight changes Diet Instructions Consistent Carbohydrate Diet: Recommended to continue to follow a consistent carbohydrate diet upondischarge. Nutrition Tips for Blood Glucose Management: Consume balanced meals and snacks including a variety of fruits, vegetables, whole grains, low-fat dairy products, beans, lean meats, and fish. Eat 3 meals per day and try to eat at consistent times. A carbohydrate choice = 15 grams of carbohydrates. Make sure to check nutritional labels for carbohydrate content. Eat 45-60 g or 3-4 carbohydrate choices at each meal. It is not recommended to go longer than 5 hours without having a meal or snack during the day. Consume foods high in fiber such as popcorn, oatmeal, beans, and legumes. Limit intake of concentrated sweets such as cookies, cake, candy, and ice cream. Limit sugar-sweetened beverages such as lemonade, sweet tea, regular soda, juice, and Gatorade. Suggestions for sugar free beverages include: G2 gatorade, SF powerade, and SF Liquid IV. Recommend to follow up with your Primary Care Doctor to ask about seeing a Registered Dietitian. Additional resources available from the [place] [employer] can be found at [email or web address].[email or web address] Consistent Carbohydrate Diet: Recommended to continue to follow a consistent carbohydrate diet upondischarge. Nutrition Tips for Blood Glucose Management: Consume balanced meals and snacks including a variety of fruits, vegetables, whole grains, low-fat dairy products, beans, lean meats, and fish. Eat 3 meals per day and try to eat at consistent times. A carbohydrate choice = 15 grams of carbohydrates. Make sure to check nutritional labels for carbohydrate content. Eat 45-60 g or 3-4 carbohydrate choices at each meal. It is not recommended to go longer than 5 hours without having a meal or snack during the day. Consume foods high in fiber such as popcorn, oatmeal, beans, and legumes. Limit intake of concentrated sweets such as cookies, cake, candy, and ice cream. Limit sugar-sweetened beverages such as lemonade, sweet tea, regular soda, juice, and Gatorade. Suggestions for sugar free beverages include: G2 gatorade, SF powerade, and SF Liquid IV. Recommend to follow up with your Primary Care Doctor to ask about seeing a Registered Dietitian. Additional resources available from the [place] [employer] can be found at www.diabetes.[email or web address] Marina Royal MS, RD, CNSC, LD Cell * Valerie Carrion RN - 03/13/2023 2:06 PM CDTAssociated Order(s): CONSULT TO WOUND CARE Spoke with Dr. Garcia with urology today regarding the wound consultation placed yesterday. The patient returned to the OR yesterday for a perineal and scrotal washout and wound closure. VAC therapynot replaced. No need for wound team to follow at this time due to wound closure. Recommendations left to change dry dressings as needed and scrotal support. Urology to reach out to wound team again if needed in the future. Primary team aware. Valerie Carrion RN, BSN, CWOCN Wound Ostomy Team General W/O number: [phone] * Marina Royal RD - 03/11/2023 10:16 AM CDTAssociated Order(s): IP CONSULT TO NUTRITION SERVICES Discussed healthy eating for the control of diabetes. Encouraged eating 3 meals/day for blood sugarcontrol. Discussed foods that contain carbohydrates and how they impact blood sugars. Reviewed foods to limit/avoid. Discussed liquids that may contain carbohydrates. Encouraged the reduction of highfat foods so to reduce weight, cholesterol, and triglyceride levels. Discussed importance of fiber for a healthy diet. Reviewed s/s of hypoglycemia and corrective action. Discussed grams of CHO recommended per meal. RD contact information provided. Marina Royal MS, RD, CNSC, LD Cell * Valerie Carrion RN - 03/09/2023 1:43 PM CDTAssociated Order(s): CONSULT TO WOUND CARE Consulted today for leaking VAC dressing. The patient is incontinent of liquid stool. External and internal fecal management devices have been attempted, but both ultimately failed. Today, the old outer dressing was removed and replaced the [employer]CI Dermatac. If this fails again, staffwere directed to remove the entire VAC dressing/ all foam and replace with Vashe damp dressing, as noted in the Urology note today. Spoke with patient, his nurse and urology team. Urology will re-consult the wound team if needed again in the future. Valerie Carrion RN, BSN, CWOCN Wound Ostomy Team General W/O number: [phone] * Kim Byrne RD - 03/09/2023 9:31 AM CDTAssociated Order(s): IP CONSULT TO NUTRITION SERVICES NUTRITION ASSESSMENT Nutrition Status: Patient appears adequately nourished at this time. 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 Objective History reviewed. No pertinent past medical history. History reviewed. No pertinent surgical history. Social History Tobacco Use Smoking status: Never Smokeless tobacco: None Substance and Sexual Activity Drug use: None Sexual activity: None Alcohol Use: Not on file MEDICATION/LAB REVIEW: Scheduled Med's: acetaminophen, 1,000 mg, oral, Q6H ASTON calcium carbonate, 400 mg of elemental calcium, oral, Daily docusate sodium, 100 mg, oral, BID Or docusate, 100 mg, feeding tube, BID enoxaparin, 40 mg, subcutaneous, Q12H ASTON ergocalciferol, 50,000 Units, oral, Weekly insulin lispro, 0-10 Units, subcutaneous, Q4H ASTON insulin lispro, 6 Units, subcutaneous, TID with meals insulin NPH, 8 Units, subcutaneous, Q8H meropenem, 2,000 mg, intravenous, Q8H ASTON senna, 1 tablet, oral, Daily vancomycin, 15 mg/kg, intravenous, Q12H Continuous Infusions: PRN Med's: ondansetron oxyCODONE Recent Labs Lab Units 03/08/23205803/07/23202603/07/23 1649 03/07/23 1220 SODIUM mmol/L 138 139 See Comment 139 POTASSIUM PLASMA mmol/L 4.0 3.6 See Comment 3.3 CHLORIDE mmol/L 103 106 See Comment 104 CO2 mmol/L 26 24 See Comment 24 BUN SERUM mg/dL 10 14 See Comment 13 CREATININE mg/dL 0.60* 0.73* See Comment 0.77* YDI-XBD-EMMIAVY mL/min/1.73 m2 >90 >90 See Comment >90 CALCIUM mg/dL 8.0* 7.8* See Comment 8.2* ALBUMIN g/dL -- 2.1* -- -- PHOSPHORUS PLASMA mg/dL -- 4.1 See Comment 4.8* MAGNESIUM mg/dL -- 2.5 See Comment 2.5 Recent Labs Lab Units 03/09/23 0734 03/09/23 0329 03/09/23 0006 03/08/23205803/08/23 1934 03/08/23 1639 03/08/23 1203 GLUCOSE mg/dL -- -- -- 215* -- -- -- POC GLUCOSE MONITOR mg/dL 181 182 187 -- 194 152 155 ALT Date Value Ref Range Status 03/07/2023 17 7 - 55 Units/L Final AST Date Value Ref Range Status 03/07/2023 28 10 - 50 Units/L Final Alk phos Date Value Ref Range Status 03/07/2023 118 40 - 130 Units/L Final Lab Results Component Value Date HGBA1C 13.3 (H) 03/06/2023 HDL 20 (L) 03/06/2023 LDLCALC 67 03/06/2023 CHOL 106 03/06/2023 TRIG 93 03/06/2023 NURSING ASSESSMENT: Matthew Scale Score: 13 Skin Integrity: Scaling, Redness, Other (Comment) Type of Wound (LDA): Wound Vital Signs BP: 154/78 Temp: 37.1 ??C (98.7 ??F) Pulse: 86 Resp: 18 SpO2: 97 % Intake/Output Summary (Last 24 hours) at 03/09/2023 0932 Last data filed at 03/09/2023 0800 Gross per 24 hour Intake 2405 ml Output 2825 ml Net -420 ml Adult Malnutrition Scoring Tool (MST) What diet do you follow at home?: regular Have You Recently Lost Weight Without Trying?: No Have you been eating poorly because of a decreased appetite?: No Malnutrition Screening Tool (MST) Score: 0 Anthropometrics Weight: (!) 161.7 kg (356 lb 7.7 oz) Admission Weight : 161.7 kg Weight Change: 5.70 kg (12.56 lbs) IBW/kg (Calculated) : 97.1 kg Height: 198.1 cm (6' 6 ) Weight in (lb) to have BMI = 25: 215.9 BMI (Calculated): 41.2 Wt Readings from Last 10 Encounters: 03/06/23 (!) 161.7 kg (356 lb 7.7 oz) 03/06/23 (!) 156 kg (343 lb 14.7 oz) ESTIMATED NEEDS: . Dietary Orders (From admission, onward) Start Ordered 03/10/23 0001 NPO Diet Diet effective midnight 03/09/23 0754 03/08/23 0855 Adult Diet Restricted; Consistent Carbohydrate; No juice on tray Diet effective now Question Answer Comment ([facility]) Diet type Restricted Diabetic: Consistent Carbohydrate Other Services: No juice on tray 03/08/23 0854 Allergies: Reviewed. IMPRESSION: Saw pt for consult regarding diabetes education. Pt reports a good appetite [employer]. Appete has been down today and pt had emessit while RD in room.Pt not up for DM education at this time. Will attempt at better time. +emesis 03/09, Zofran given at 8 am +Bm 03/09 Labs noted. Glucose 181. A1c 13.3 ASPEN MALNUTRITION ASSESSMENT: N/A NUTRITION FOCUSED PHYSICAL EXAM: N/A NUTRITION DIAGNOSIS: Nutrition Diagnosis 1: Inadequate oral intake Related to: Nausea Evidenced by: Patient interview, Physical finding INTERVENTION(S): Summary: Encouragement, Education, Medical food supplement, Regular weights, Education, nutrition, Assess for nutrition changes Consistent Carb Diet Document intakes all meals Weekly wt checks Pt with nausea: - Recommended taking antiemetics 30-45 min before eating Provide education when able GOAL(S): Oral intake to meet 75% estimated nutritional needs by next assessment, Patient/caregiver able to teach back understanding of role of diet in disease process prior to discharge MONITORING/EVALUATION: Appetite, Labs, Plan of care, Stool patterns, Wound healing, Weight changes Consistent Carbohydrate Diet: Recommended to continue to follow a consistent carbohydrate diet upondischarge. Nutrition Tips for Blood Glucose Management: Consume balanced meals and snacks including a variety of fruits, vegetables, whole grains, low-fat dairy products, beans, lean meats, and fish. Eat 3 meals per day and try to eat at consistent times. A carbohydrate choice = 15 grams of carbohydrates. Make sure to check nutritional labels for carbohydrate content. Eat 45-60 g or 3-4 carbohydrate choices at each meal. It is not recommended to go longer than 5 hours without having a meal or snack during the day. Consume foods high in fiber such as popcorn, oatmeal, beans, and legumes. Limit intake of concentrated sweets such as cookies, cake, candy, and ice cream. Limit sugar-sweetened beverages such as lemonade, sweet tea, regular soda, juice, and Gatorade. Suggestions for sugar free beverages include: G2 gatorade, SF powerade, and SF Liquid IV. Recommend to follow up with your Primary Care Doctor to ask about seeing a Registered Dietitian. Additional resources available from the [place] [employer] can be found at [email or web address].[email or web address] Kim Byrne RD * Subha Butler MD - 03/09/2023 9:15 AM CDTAssociated Order(s): CONSULT TO GENERAL INFECTIOUS DISEASE Infectious Disease Initial Consult Note Infectious Disease Team: General 4 Contact Information: Please see [facility] Treatment Team listing for up-to-date contact information. Requesting Physician: Ursula Ferro MD Reason for Consult: Diagnostic and treatment recommendations, as well as assistance with follow up care. Subjective Chief Complaint: Yamila's gangrene HPI: The patient is a 42 y.o. male with PMH of non healing foot wounds who presented to OSH for scrotal pain and swelling. Patient reported a 2 week history of perineal/scrotal pain that worsened over time and presented toED at [place]. In addition he also reported non healing L foot wounds for 3-4 years. Denies fevers, chills or other constitutional symptoms. CT A/P showed scrotal soft tissue edema [...] to SICU postop for insulin gtt. Returned backto OR on 03/07 for second look and repeat debridement of deeper tissues with WV placement. No repeatcultures obtained. WV complicated by fecal content leaking from fecal management devices. He is planned for repeat OR for WV takedown tomorrow to evaluate proximity to rectum and partial closure. Podi boy was also consulted for L foot ulcer and had bedside debridement, deepest level subcutaneous tissue not probing to bone and no purulence. He reports ongoing nausea with occasional vomiting, pain is controlled. No past medical history on file. No past surgical history on file. HOME MEDICATIONS : kfpdyqyuwowzd-akiitdc-zjgamvpn (EXCEDRIN MIGRAINE) 250-250-65 mg per tablet aspirin 325 mg tablet doxycycline 100 mg capsule traMADoL (ULTRAM) 50 mg tablet Current Facility-Administered Medications Ordered in [facility] Medication Dose Route Frequency Provider Last Rate Last Admin acetaminophen (TYLENOL) tablet 1,000 mg 1,000 mg oral Q6H [facility] Matheus Frias PA 1,000 mg at 03/09/23 0523 calcium carbonate (TUMS) chewable tablet 1,000 mg 400 mg of elemental calcium oral Daily Matheus Frias PA 1,000 mg at 03/09/23 0840 docusate sodium (COLACE) capsule 100 mg 100 mg oral BID Matheus Frias PA 100 mg at 03/09/23 0840 Or docusate (COLACE) 10 mg/mL oral liquid 100 mg 100 mg feeding tube BID Matheus Frias PA 100 mgat 03/06/232116 enoxaparin (LOVENOX) syringe 40 mg 40 mg subcutaneous Q12H [facility] Javier Starks NP 40 mg at 03/09/23 0840 ergocalciferol (VITAMIN D) capsule 50,000 Units 50,000 Units oral Weekly Matheus Frias PA 50,000 Units at 03/09/23 0008 insulin lispro (HumaLOG, ADMELOG) 100 unit/mL injection 0-10 Units 0-10 Units subcutaneous Q4H [facility] Mckayla Iyer NP 2 Units at 03/09/23 0739 insulin lispro (HumaLOG, ADMELOG) 100 unit/mL injection 6 Units 6 Units subcutaneous TID with [facility] insulin NPH (HumuLIN N, NovoLIN N) 100 unit/mL injection 8 Units 8 Units subcutaneous Q8H Mckayla Iyer NP 8 Units at 03/09/23 0840 meropenem (MERREM) 2,000 mg/120 mL in sodium chloride 0.9% (premix) 2,000 mg 2,000 mg intravenous Q8H [facility] Matheus Frias PA Stopped at 03/09/23 0555 ondansetron (ZOFRAN) injection 4 mg 4 mg intravenous Q4H PRN Marcos Browne NP 4 mg at 03/09/23 0841 oxyCODONE (ROXICODONE) tablet 5 mg 5 mg oral Q4H PRN Deanna Thompson MD PhD 5 mg at 03/08/23 1412 senna (SENOKOT) tablet 1 tablet 1 tablet oral Daily Matheus Frias PA 1 tablet at 03/09/23 0840 vancomycin (VANCOCIN) 2,250 mg in sodium chloride 0.9% 500 mL IVPB 15 mg/kg intravenous Q12H Matheus Frias PA Stopped at 03/09/23 0717 No current Epic-ordered outpatient medications on file. Anti-infectives (From admission, onward) Start Dose/Rate Route Frequency Ordered Stop 03/06/23 191 meropenem (MERREM) 2,000 mg/120 mL in sodium chloride 0.9% (premix) 2,000 mg 2,000 mg over 30 Minutes intravenous Every 8 hours scheduled 03/06/23 1900 03/06/23 1830 vancomycin (VANCOCIN) 2,250 mg in sodium chloride 0.9% 500 mL IVPB 15 mg/kg ?? 156 kg 261.3 mL/hr over 120 Minutes intravenous Every 12 hours 03/06/23 1044 Active Lines/Ports/Devices: Peripheral IV 03/06/23 20 G Right Antecubital (Active) Number of days: 3 Peripheral IV 03/06/23 20 G Left Antecubital (Active) Number of days: 3 Peripheral IV 03/08/23 20 G Anterior;Distal;Right Forearm (Active) Number of days: 1 Urethral Catheter Straight-tip;Non-latex (Active) Number of days: 3 Fecal Incontinence Device 03/09/23 0000 (Active) Number of days: 0 Patient Allergies: No Known Allergies Social History Social History Narrative Not on file reports that he has never smoked. He does not have any smokeless tobacco history on file. No alcohol history on file. Family history reviewed and non-contributory History reviewed. No pertinent family history. Review of Systems: Constitutional: No fevers, chills HEENT: No headache, visual loss or yellow sclerae, no congestion, rhinorrhea or odynophagia. Respiratory: No shortness of breath, cough or sputum. Cardiovascular: No chest pain. Gastrointestinal: No abdominal pain, anorexia, nausea, vomiting or diarrhea. Genitourinary: Scrotal pain Musculoskeletal:No muscle pain or back pain. Skin: No rashes or skin lesions. Neurological: No weakness, numbness or tingling. Hematological: No enlarged lymph nodes. All other systems reviewed and are negative. Objective Vitals: 24hr Min/Max: Temp Min: 36.5 ??C (97.7 ??F) Max: 37.1 ??C (98.8 ??F) Pulse Min: 85 Max: 97 BP Min: 120/64 Max: 160/84 Resp Min: 13 Max: 24 SpO2 Min: 95 % Max: 100 % Most Recent : Vitals: 03/09/23 0700 BP: Pulse: 86 Resp: Temp: SpO2: 97% Vitals: 03/09/23 0010 03/09/23 0400 03/09/23 0600 03/09/23 0700 BP: 136/68 154/78 BP Location: Left arm Patient Position: HOB 30 degrees Pulse: 90 91 86 86 Resp: 21 18 Temp: 37.1 ??C (98.7 ??F) TempSrc: Oral SpO2: 95% 97% 97% 97% Weight: Height: I/O last 2 completed shifts: In: 2185 [P.O.:960; I.V.:222; IV Piggyback:1004] Out: 2124 [Urine:1875; Stool:250] Physical Exam: GENERAL: Awake, not in cardiorespiratory distress, morbid obese HEENT: Anicteric sclerae, pink conjunctivae, moist mucosae, no pharyngeal erythema, no neck masses LUNGS: Normal breath sounds, no crackles, no wheezes HEART: No heart murmurs, no gallops ABDOMEN: Nondistended, nontender, and soft abdomen : Scrotal edema and erythema, wound in perineum EXTREMITY: L foot with dressing in place, significant chronic skin changes and hyperkeratosis DERM: No exanthems or enanthems LYMPH: No cervical or inguinal lymphadenopathy NEURO: Oriented to time, place, person; pupils equally reactive to light, cranial nerves intact, nomotor or sensory deficits Lab/Radiology/Diagnostic Review: I reviewed the following laboratory and imaging result(s). Micro: Lab Results Component Value Date MICROBIOLOGY (.) 03/06/2023 Preliminary Report: Moderate Streptococcus anginosus For susceptibility results, refer to accession number [id number] on the scrotum tissue culture from 03/06/2023 MICROBIOLOGY (.) 03/06/2023 Preliminary Report: Moderate Streptococcus anginosus Susceptibility testing results to follow. Few Mixed microorganisms. MICROBIOLOGY (.) 03/06/2023 Preliminary Report: Moderate Streptococcus anginosus For susceptibility results, refer to accession number [id number] on the scrotum tissue culture from 03/06/2023 Few Mixed microorganisms. MICROBIOLOGY Preliminary Report: No growth to date. 03/06/2023 MICROBIOLOGY Preliminary Report: No growth to date. 03/06/2023 Urinalysis: Resulted in the Past 12 Months 03/06/23 0924 COLORU Yellow CLARITYU Clear SPECGRAVU 1.047* PHURINE 6.0 PROTURQL 1+* GLUCOSEUR 3+* KETONESU 2+* BLOODUR 1+* NITRITEU Negative LEUKESTUR Negative Hematology/Chemistry: CBC: Lab Results Component Value Date WBC 10.9 (H) 03/08/2023 HGB 10.5 (L) 03/08/2023 HCT 32.9 (L) 03/08/2023 LABPLAT 302 03/08/2023 NEUTOPHILPCT 69.8 03/07/2023 LYMPHOPCT 17.3 03/07/2023 MONOPCT 8.8 03/07/2023 EOSPCT 1.5 03/07/2023 CMP: Lab Results Component Value Date SODIUM 138 03/08/2023 POTASSIUM 4.0 03/08/2023 CHLORIDE 103 03/08/2023 CO2 26 03/08/2023 ANIONGAP 9 03/08/2023 GLUCOSE 181 03/09/2023 BUNSER 10 03/08/2023 CREATININE 0.60 (L) 03/08/2023 CALCIUM 8.0 (L) 03/08/2023 ALBUMIN 2.1 (L) 03/07/2023 ALKPHOS 118 03/07/2023 ALT 17 03/07/2023 AST 28 03/07/2023 BILITOT 0.3 03/07/2023 Creatinine:Estimated Creatinine Clearance: 205.2 mL/min (A) (by Cockcroft-Gault based on SCr of 0.6mg/dL (L)). Resulted in the Past 12 Months 03/08/23205803/07/237 03/07/23 1649 CREATININE 0.60* 0.73* See Comment Inflammatory Markers: Resulted in the Past 12 Months 03/06/23 0535 SEDRATE 103* CRP 272.2* Screening Results RPR:No results found for: LABRPR GC: No results found for: CTRACHOMATIS , NGONORRHOEAE Hepatitis Serologies: No results found for: HEPAIGG , HEPAIGM , HEPBSAG , HEPBSAB , HEPBCAB , HEPCAB Virologic Testing: HIV Screen:No results found for: [id number] CD4:No results found for: CD4ABS , CD4PCT Common Virologic Results: No results found for: [id number] , CD4ABS , CD4PCT , NUCLEOSRT , NONNUCRTMUT , PROTEASEMUT , INTEGRASEMUT , PPD , TOXOIGG Diagnostics: EKG: Lab Results Component Value Date VR 91 03/06/2023 AR 91 03/06/2023 PRIMSEC 170 03/06/2023 QRSIMSEC 102 03/06/2023 QTIMSEC 374 03/06/2023 QT 460 03/06/2023 PA 30 03/06/2023 RA 32 03/06/2023 TA 6 03/06/2023 DIAG 03/06/2023 Normal sinus rhythm Incomplete right bundle branch block Borderline ECG No previous ECGs available Confirmed by SALTY ROBLES M.D. ([id number]) on 03/09/2023 6:22:01 AM Echo: Imaging: No results found. No results found. Assessment/Plan Yamila's gangrene Assessment & Plan The patient is a 42 y.o. male [...] received a dose of vancomycin, cefepime and clindamycinand was transferred for urology evaluation. He was taken to OR with urology and general surgery on 03/06 and was found to have purulent fluid with necrotic tissue in perineum that extended down towards anus and tracked up to scrotum into inguinal canals. KARLA confirmed no connection. OR cultures grewStrep anginosus and mixed microorganisms. He was started on meropenem and vancomycin and admitted to SICU postop for insulin gtt. Returned back to OR on 03/07 for second look and repeat debridement ofdeeper tissues with WV placement. No repeat cultures obtained. WV complicated by fecal content leaki ng from fecal management devices. 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 - reviewed; antibiotics recommended above are dosed accordingly., and The patient is being intensively monitored for antimicrobial toxicity from unasyn with the following tests: CBC and CMP. * Moody Saab DPM - 03/07/2023 4:53 PM CDTAssociated Order(s): IP CONSULT TO PODIATRY [facility] Podiatric [facility] Subjective: Patient is a 42 y.o. male with PMH of T2DM, severely uncontrolled with peripheral neuropathy. Podiatry was consulted for evaluation of left foot ulceration. Patient states that he has had a wound to the left foot for approximately 3-4 years. Patient unable to recall any injury to the area prior to the wound starting. Patient denies seeing a provider for regular care or management of the wound andnotes he walks barefoot a lot. Patient says he has been applying neosporin and dressings to his foot himself for sometime now. Patient notes loss of sensation to both feet. History reviewed. No pertinent past medical history. History reviewed. No pertinent surgical history. Current Facility-Administered Medications: acetaminophen (TYLENOL) tablet 1,000 mg, 1,000 mg, oral, Q6H ASTON, Matheus Frias PA, 1,000 mg at 03/07/23 1122 dextrose (D10W) 10% bolus 250 mL, 250 mL, intravenous, Q15 Min PRN, Mckayla Iyer NP dextrose 5% infusion, 100 mL/hr, intravenous, Continuous, Mckayla Iyer NP, Last Rate: 100 mL/hr at 03/07/23 1500, 100 mL/hr at 03/07/23 1500 docusate sodium (COLACE) capsule 100 mg, 100 mg, oral, BID, 100 mg at 03/07/23 1122 OR docusate(COLACE) 10 mg/mL oral liquid 100 mg, 100 mg, feeding tube, BID, Matheus Frias PA, 100 mg at 03/06/232116 enoxaparin (LOVENOX) syringe 40 mg, 40 mg, subcutaneous, Daily-2100, Matheus Frias PA, 40 mg at 03/06/232020 HYDROmorphone (DILAUDID) injection 0.2 mg, 0.2 mg, intravenous, Q2H PRN, Deanna Thompson MD PhD insulin regular in 0.9% sodium chloride (MYXREDLIN) 100 unit/100 mL (1 unit/mL) infusion (premix), 0-30 Units/hr, intravenous, Titrated, Mckayla Iyer NP, Last Rate: 2 mL/hr at 03/07/23 1500, 2 Units/hr at 03/07/23 1500 meropenem (MERREM) 2,000 mg/120 mL in sodium chloride 0.9% (premix) 2,000 mg, 2,000 mg, intravenous, Q8H ASTON, Matheus Frias PA, Stopped at 03/07/23 1426 oxyCODONE (ROXICODONE) tablet 5 mg, 5 mg, oral, Q4H PRN, Deanna Thompson MD PhD, 5 mg at 03/06/23 2250 potassium chloride 40 mEq/520 mL in sodium chloride 0.9% (premix) 40 mEq, 40 mEq, intravenous, Once, Mckayla Iyer NP, Last Rate: 130 mL/hr at 03/07/23 1534, 40 mEq at 03/07/23 1534 senna (SENOKOT) tablet 1 tablet, 1 tablet, oral, Daily, Matheus Frias PA, 1 tablet at 03/07/23 1122 vancomycin (VANCOCIN) 2,250 mg in sodium chloride 0.9% 500 mL IVPB, 15 mg/kg, intravenous, Q12H, Matheus Frias PA, Stopped at 03/07/23 0700 No Known Allergies Social History Tobacco Use Smoking status: Never Smokeless tobacco: None Substance and Sexual Activity Drug use: None Sexual activity: None Alcohol Use: Not on file History reviewed. No pertinent family history. Review of Systems Constitutional: Negative for chills, fatigue, appetite changes. Psychological: Negative for anxiety, disorientation, confusion. Endocrine: Negative for polydipsia, polyuria, polyphagia, unexpected weight changes. Cardiovascular: Negative for chest pain, palpitation. Respiratory: Negative for shortness of breath, dyspnea, cough. Gastrointestinal: Negative for nausea, vomiting, diarrhea. Genitourinary: Negative for dysuria, hematuria. Musculoskeletal: Negative except for as stated in HPI. Neurological: Negative except for as stated in HPI. Dermatological: Negative except for as stated in HPI. Objective: Vitals: Vitals: 03/07/23 1500 BP: 124/65 Pulse: 83 Resp: 11 Temp: 36.8 ??C (98.2 ??F) SpO2: 100% General: Patient is A&O x4, NAD. Lower extremity focused physical exam: Derm: Skin is cool, dry. Open wound noted to: plantar aspect of 1st met head of left foot with sloughing, fibrotic tissue. Mild serous drainage, no purulence noted, no malodor. No surrounding erythema, no proximal streaking noted. Eschar to distal tuft of left hallux. Vasc: DP pulse, left foot: mildly palpable. DP pulse, right foot: mildly palpable. PT pulse, left foot: not palpable. PT pulse, right foot: not palpable. Capillary refill time > three seconds to all digits, bilateral feet. No edema noted bilaterally. Neuro: Protective sensation grossly diminished to the level of the forefoot via light touch, left foot. Protective sensation grossly diminished to the level of the forefoot via light touch, right foot. Musculoskeletal: 5/5 muscle strength noted to all muscle groups, left lower extremity. 5/5 muscle strength noted to all muscle groups, right lower extremity. No gross abnormalities noted. No pain with debridement of left plantar foot wound. La/bs: Lab Results Component Value Date SODIUM 139 03/07/2023 POTASSIUM 3.3 03/07/2023 CHLORIDE 104 03/07/2023 CO2 24 03/07/2023 ANIONGAP 11 03/07/2023 BUNSER 13 03/07/2023 CREATININE 0.77 (L) 03/07/2023 GLUCOSE 138 03/07/2023 CALCIUM 8.2 (L) 03/07/2023 BILITOT 0.4 03/06/2023 PROT 5.9 (L) 03/06/2023 ALBUMIN 2.4 (L) 03/06/2023 ALKPHOS 113 03/06/2023 ALT 15 03/06/2023 AST 25 03/06/2023 Lab Results Component Value Date WBC 21.3 (H) 03/06/2023 HGB 11.6 (L) 03/06/2023 HCT 35.8 (L) 03/06/2023 LABPLAT 348 03/06/2023 MPV 9.3 03/06/2023 RBC 4.23 (L) 03/06/2023 MCV 84.6 03/06/2023 MCH 27.4 03/06/2023 MCHC 32.4 03/06/2023 RDWCV 13.3 03/06/2023 RDWSD 41.1 03/06/2023 NRBCABS 0.00 03/06/2023 Lab Results Component Value Date SEDRATE 103 (H) 03/06/2023 CRP 272.2 (H) 03/06/2023 Radiology/Pathology: 03/07/23 Procedures: Arterial Report: Bilateral Lower Extremity Arterial Duplex Exam. Indications: Left foot metatarsal base ulcer, and left big toe ulcer, did not know he has diabetes. Measurements: Right Lower Left Lower Measurement Value Units Measurement Value Units Rt BULB GRADER Dst PSV 93 cm/s Lt BULB GRADER Dst PSV 154 cm/s Rt Profunda Prx PSV 51 cm/s Lt Profunda Prx PSV 86 cm/s Rt Superficial Femoral Prx PSV 106 cm/s Lt Superficial Femoral Prx PSV 145 cm/s Rt Superficial Femoral Mid PSV 90 cm/s Lt Superficial Femoral Mid PSV 130 cm/s Rt Superficial Femoral Dst PSV 73 cm/s Lt Superficial Femoral Dst PSV 86 cm/s Rt Popliteal Artery 90 cm/s Lt Popliteal Artery 115 cm/s Rt Post Tibial Prx PSV 86 cm/s Lt Post Tibial Prx PSV 92 cm/s Rt Post Tibial Mid PSV 96 cm/s Lt Post Tibial Mid PSV 97 cm/s Rt Post Tibial Dst PSV 83 cm/s Lt Post Tibial Dst PSV 90 cm/s Rt Ant Tibial Prx PSV 77 cm/s Lt Ant Tibial Prx PSV 113 cm/s Rt Ant Tibial Mid PSV 73 cm/s Lt Ant Tibial Mid PSV 133 cm/s Rt Ant Tibial Dst PSV 75 cm/s Lt Ant Tibial Dst PSV 122 cm/s Rt Peroneal Prx PSV 67 cm/s Lt Peroneal Prx PSV 76 cm/s Rt Peroneal Mid PSV 54 cm/s Lt Peroneal Mid PSV 62 cm/s Rt Peroneal Dst PSV 52 cm/s Lt Peroneal Dst PSV 77 cm/s Measurement Value Units Measurement Value Units Right Lower Left Lower - Findings: Performing Director Of Database Marketing: Anca Alexis RVT ([place]). Right Common Femoral: The right common femoral waveform is multiphasic. Right Profunda: The right profunda waveform is multiphasic. Right Proximal Superficial Femoral Artery: The right proximal femoral artery waveform is multiphasic. Right Mid Superficial Femoral Artery: The right mid femoral artery waveform is multiphasic. Right Distal Superficial Femoral Artery: The right distal femoral artery waveform is multiphasic. Right Popliteal: The right popliteal waveform is multiphasic. Right Posterior Tibial: The right posterior tibial waveform is multiphasic. Right Anterior Tibial: The right anterior tibial waveform is multiphasic. Right Peroneal: The right peroneal artery waveform is multiphasic. Left Common Femoral: The left common femoral waveform is multiphasic. Left Profunda: The left profunda waveform is multiphasic. Left Proximal Superficial Femoral Artery: The left proximal femoral artery waveform is multiphasic. Left Mid Superficial Femoral Artery: The left mid femoral artery waveform is multiphasic. Left Distal Superficial Femoral Artery: The left distal femoral artery waveform is multiphasic. Left Popliteal: The left popliteal waveform is multiphasic. Left Posterior Tibial: The left posterior tibial waveform is multiphasic. Left Anterior Tibial: The left anterior tibial waveform is multiphasic. Left Peroneal: The left peroneal artery waveform is multiphasic. Conclusions: 1. Duplex imaging of the bilateral lower extremity [place] arteries reveals patent vessels with no flow limiting lesions identified. Flow velocities as measured above. See Ankle Brachial Index report. 2. See Ankle/ Brachial Index report. Procedures: Arterial Report: Bilateral lower extremity arterial Doppler exam at rest. Indications: Left foot metatarsal base ulcer, and left big toe ulcer, did not know he has diabetes, bilateral leg swelling. Measurements: Right - Left - Measurement Value Units Measurement Value Units Rt Brachial Pressure 100 mmHg Lt Brachial Pressure 110 mmHg Rt AUTOMOBILE LIGHTS ASSEMBLER Pressure 162 mmHg Lt AUTOMOBILE LIGHTS ASSEMBLER Pressure 158 mmHg Rt DPA Pressure 159 mmHg Lt DPA Pressure 159 mmHg Rt 1st Digit Pressure >254 mmHg Lt 1st Digit Pressure >254 mmHg Rt PT MOSES Resting NC Lt PT MOSES Resting NC Rt AT MOSES Resting NC Lt AT MOSES Resting NC Rt Digit/Arm Index NC Lt Digit/Arm Index NC Measurement Value Units Measurement Value Units Right - Left - - Findings: Performing Director Of Database Marketing: Anca Alexis RVT ([place]). Bilateral All Levels : The bilateral common femoral, popliteal, posterior tibial and anterior tibial artery waveforms are multiphasic. Right Digits: Normal right digit non compressible pressure with normal waveform. Left Digits: Normal left digit non compressible pressure with normal waveform. Conclusions: 1. The ankle arteries are non-compressible bilaterally which is consistent with arterial calcification thus the Ankle/Brachial Indices are not obtainable. 2. Bilateral toe pressures were non compressible. 03/06/23 EXAM DESCRIPTION: XR FOOT LEFT 3 OR MORE VIEWS REASON FOR STUDY: pain Pt states diabetic foot ulcer for 4 years TECHNIQUE: 3 radiographic view(s) of the left foot . COMPARISON: None available FINDINGS: BONES/JOINTS: Obliquely oriented lucency through the base of the 5th metatarsal that is most characteristic of an os vesalianum pedis although chronic fracture nonunion could have a similar appearance. No definite acute fracture or malalignment. Normal bone mineralization. Joint spaces are maintained. SOFT TISSUES: 1.1 cm soft tissue defect about the ventral forefoot seen on the lateral view. No soft tissue emphysema or erosion of the underlying bone. Soft tissues are otherwise unremarkable. IMPRESSION: No definite acute osseous abnormality. 1.1 cm soft tissue defect about the plantar forefoot with no soft tissue emphysema or radiographic evidence of osteomyelitis. If clinical concern, MRI is more sensitive for early bone changes. Obliquely oriented lucency through the base of the 5th metatarsal most characteristic of an os vesalianum pedis although chronic fracture nonunion could have a similar appearance and clinical correlation is needed. Assessment: 1. Scrotal abscess 2. Perineal abscess - Case Request Operating Room: INCISION AND DRAINAGE, EXAM UNDER ANESTHESIA, EXAM UNDER ANESTHESIA,INCISION AND DRAINAGE; Standing - Case Request Operating Room: INCISION AND DRAINAGE, EXAM UNDER ANESTHESIA, EXAM UNDER ANESTHESIA,INCISION AND DRAINAGE - Case Request Operating Room: EXAM UNDER ANESTHESIA, DEBRIDEMENT WOUND; Standing - Case Request Operating Room: EXAM UNDER ANESTHESIA, DEBRIDEMENT WOUND 3. Diabetic foot wound, left foot (wag 2) Plan: - Patient examined and evaluated - Reviewed labs/radiographs - Left foot radiographs negative - Left foot ulceration debrided bedside, significant depth but negative probe to bone, no purulence - Wound care: recommend daily betadine paint and dry sterile dressing - Weight bearing status: WBAT in heel strike shoe per PT - Advised diabetic shoes with custom offloading inserts for basketballs and footballs reverser sheogear - Discussed proper pedal care in the context of the at risk foot: including but not limited to avoidance of barefoot walking and daily foot checks. - All patient questions were addressed and answered to patient satisfaction, patient expressed an understanding. Wound to plantar 1st met head, left foot was sharply, excisionally debrided with sharp, sterile 15 blade/currette/tissue nippers. Wound was excisionally debrided of fibrotic and non-viable/necrotic soft tissue, along with hyperkeratotic tissue to periwound. Pre-debridement measurement: 2.0cm x 1.5cm x 1.1cm deep Post-debridement measurement: 2.2cm x 1.5cm x 1.1cm deep, improved Level of debridement: subcutaneous tissue (deepest tissue layer debrided). Visual bleeding of tissue observed post debridement: moderate Wager Grading System: Grade 0: Pre-ulcerative lesion, healed ulcers, presence of bone deformity. Grade 1: Superficial ulcer WITHOUT subcutaneous tissue involvement.. Grade 2: Penetration through the subcutaneous tissue (may expose bone, tendon, ligament, or joint capsule) Grade 3: Osteitis, abscess or osteomyelitis Grade 4: Gangrene of the foot Based on clinical findings, the patient has the following [place] Grade Ulceration: 2 Applied direct pressure for hemostasis and dressed area with dry sterile dressing consisting of betadine, 4x4s, kerlix. Orders placed for daily dressing changes as stated above. Patient may follow up with Wound Center upon discharge. Moody Saab DPM Voice recognition software [employer] Direct was used to dictate/transcribe this document. Chief Design Engineer variances may occur. Despite proofreading, typographical, grammatical and syntax errors may occur. * Toby Teresa MD - 03/07/2023 1:01 PM CDT Endocrinology & Diabetes Consult Note Patient: Rene Hyatt, 42 y.o. male (: 1980) Room: [place] [address] [address] ( ) LOS: 1 Consult Question: DKA (Requesting Provider: Carmen Monte*) Rene Hyatt is a 42 y.o. male with type 2 DM admitted with DKA and endocrine is consulted to help with DKA management. HPI 42 y/o M with no known pmh presented to OSH with scrotal swelling (Yamila's gangrene) c/f soft tissue infection and ulcer on left foot. Per patient has been having severe pain in scrotal area, withswelling and difficulty urinating. On ros he denied fever, chills, n/v. Patients A1C 13, patient inDKA (AGMA on admission, +2 ketones in urine, BG > 300 Beta hydroxybutyrate +0.9. CT abd showed abscess in lower ext. Per patient had no idea he had DM and has never been in any medications. He has not seen pcp since and takes care of his mother at home who has multiple sclerosis. Type of Diabetes: 2 Duration of diabetes: patient not aware Famhx of diabetes: yes Diabetes provider: none complications: neuropathy Home regimen: none Hypoglycemic events: does not know as he didn't know about his DM status Diet: NPO Diet Sips of clear liquids Recent Labs Lab Units 03/07/23 2243 03/07/239 03/07/23202603/07/23 1908 03/07/23 1708 03/07/23 1649 03/07/23 1605 03/07/23 1500 03/07/23 1355 03/07/23 1220 GLUCOSE mg/dL -- -- 136 -- -- See Comment -- -- -- 142 POC GLUCOSE MONITOR mg/dL 125 129 -- 129 133 -- 138 138 151 142 Lab Results Component Value Date HGBA1C 13.3 (H) 03/06/2023 PMH & PSH He has no past medical history on file. He has no past surgical history on file. Social & Family History He reports that he has never smoked. He does not have any smokeless tobacco history on file. No alcohol history on file. His family history is not on file. Review of Systems Twelve point ROS reviewed and negative except as noted in HPI. All other systems negative. Vitals & Physical Exam Temp: [36.7 ??C (98.1 ??F)-37.2 ??C (99 ??F)] 36.8 ??C (98.3 ??F) Pulse: [78-93] 93 BP: (104-132)/(48-112) 104/50 Resp: [11-21] 18 SpO2: [95 %-100 %] 96 % Body mass index is 41.2 kg/m??. I/O this shift: In: 106 [I.V.:6; IV Piggyback:100] Out: 125 [Urine:125] Physical Exam Gen : no acute distress, alert, appropriate, cooperative, appears stated age, well-developed, well-nourished Pulm : clear to auscultation in anterior gonsalez, non-labored, on room air CV : regular rate & rhythm, no murmurs/rubs/gallops, no JVD Abd : soft, non-tender, non-distended, normoactive bowel sounds Extr : atraumatic, no cyanosis/clubbing/edema Skin : turgor normal, no rashes/wounds/lesions Neuro : non focal Foot exam: lesion in LLE noted Data Medications, labs, imaging, and diagnostics independently reviewed in Epic and commented on below. No results found for: TSH , T3FREE , FREET4 , TSI , THYROGLOBULI , THGAB Lab Results Component Value Date CHOL 106 03/06/2023 TRIG 93 03/06/2023 HDL 20 (L) 03/06/2023 LDLCALC 67 03/06/2023 No results found for: CORTISOL , PTH , 25HYDROVITD , CPEPTIDE , OLD05JI , IA2AB Lab Results Component Value Date HGBA1C 13.3 (H) 03/06/2023 Assessment & Plan # Type 2 Diabetes Mellitus, Uncontrolled, complicated by DKA Current HbA1c and reliability:13.3 Diabetes Provider: none Insurance: None Home regimen:none Recommendations: Continue with insulin drip until gap closes After gap closes, calculate the requirements and initiate basal bolus regimen When initiating basal regiment, overlap for two hours with insulin drip to makes sure BS remain stable # HLD: - His diabetes and elevated cholesterol are indications for statin therapy. # HTN: - ACEi/ARB use in persons with both type 1 and type 2 diabetes can prevent the progression of renaldisease. ## Discharge Planning Use ???Adult END Diabetes Discharge?? Order Set - If the patient would like to be seen in the Diabetes Center, we will request an outpatient appointment. (Diabetes Center Scheduling: ) - recommend asking spray worker to assess patient inpatient -- Toby Teresa MD Endocrinology, Metabolism, & Lipid Research Cosigned by Alban Butler MD at 03/09/2023 9:28 AM CDT Associated attestation - Alban Butler MD - 03/09/2023 9:28 AM CDT I have seen and examined the patient on 03/07/23. I agree with the findings and plan of care as documented in the resident's/fellow's note.. 42 y/o M with morbid obesity, no known pmh presented to OSHwith scrotal swelling (Yamila's gangrene) c/f soft tissue infection and ulcer on left foot.Patients A1C 13.3%, patient in DKA (AGMA on admission, +2 ketones in urine, BG > 300 Beta hydroxybutyrate +0.9. CT abd showed abscess . Started on an insulin gtt and taken emergently to the OR for drainage and debridement. Extubated and awake and alert at the time our visit, podiatry performing bed side debridement LLE . Per patient had no idea he had DM. He has not seen pcp since and takes care of his mother at home who has multiple sclerosis. He endorses weigh loss, polyuria and polydipsia preceding admission. Recommend continue insulin gtt, till bicarb normalizes and given high insulin gtt requirements 8 units/hr initially, when insulin gtt rate < 2 units per hr would consider transition to NPH Q8hrs and humalog with meals and SSI. Based on 70% of gtt requirements ( calculated based on past 8hrs for a 24hr period) 50% basal ( divided 3 doses of NPH ) and 50% divided x3 with meals. Anticipate that his insulin requirements will decrease now that he is post op, being aggressively treated for scrotal abscess. Please have CDE see patient this week He does not have insurance and resides in [place] - may need to establish medicine clinic here, where medications would be subsidized, consider Basal/Bolus ( potentially 70/30 Reli-on [employer] pens) and metformin. Social Work aware. Complex social situation as he is primarycare adult caregiver mother with MS Thank you for allowing us to participate in his care. * Toby Teresa MD - 03/07/2023 10:06 AM CDTAssociated Order(s): CONSULT TO ENDOCRINOLOGY DIABETES Pls see endocrine consult note Cosigned by Alban Butler MD at 03/08/2023 12:31 PM CDT * Jamari Whitfield MD - 03/06/2023 1:28 PM CDTAssociated Order(s): IP CONSULT TO UROLOGY Urology Consult H&P I was requested to see Rene Hyatt to evaluate for perineal abscess by Carmen Wiseman Arjeffery* History of Present Illness: Rene Hyatt is a 42 y.o. male who presented to the [place] ED with perineal/scrotal pain and swelling and a foot ulcer. CT there showed a perineal fluid collection/abscess with gas in the collection and he was transferred to [place] for surgical care. Prior to coming to the ER he had about 2 weeks of perianal and buttock pain and swelling. About 5 days ago he says this spread to his scrotum. He came to the ER when the pain became unbearable. No LUTS or hematuria. He did not have any fevers.He says his last p.o. was ???2 weeks ago?? . He has been hemodynamically stable and afebrile since presentation. Labs prior to transferred showed very mild hyponatremia and acidosis. Significant hyperglycemia (343). Mild elevated lactate (2.4) which resolved with fluids. And leukocytosis with a left shift and elevated inflammatory markers. Lab Results Component Value Date CREATININE 0.80 03/06/2023 CREATININE 0.80 03/06/2023 WBC 17.3 (H) 03/06/2023 HGB 12.3 (L) 03/06/2023 ( Past Medical History: I personally reviewed the past medical history. History reviewed. No pertinent past medical history. No past surgical history on file. Current Facility-Administered Medications Medication Dose Route Frequency Provider Last Rate Last Admin cefepime (MAXIPIME) 2,000 mg/20 mL in sterile water (premix) 2,000 mg 2,000 mg intravenous Q8H Anil Almanza MD Stopped at 03/06/23 1255 clindamycin (CLEOCIN) 900 mg/50 mL in dextrose 5% (premix) 900 mg 900 mg intravenous Q8H [facility] Anil Birmingham MD Stopped at 03/06/23 1322 vancomycin (VANCOCIN) 2,250 mg in sodium chloride 0.9% 500 mL IVPB 15 mg/kg intravenous Q12H Anil Birmingham MD Current Outpatient Medications Medication Sig Dispense Refill elkoxhqwmlnfc-[id number] (EXCEDRIN MIGRAINE) 250-250-65 mg per tablet Take 1 tablet by mouth daily as needed for headaches or pain aspirin 325 mg tablet Take 2 tablets (650 mg total) by mouth daily as needed for pain or headaches doxycycline 100 mg capsule Take 1 tablet/capsule (100 mg total) by mouth 2 (two) times a day x 10 days traMADoL (ULTRAM) 50 mg tablet Take 1 tablet (50 mg total) by mouth every 6 (six) hours as needed for pain x 7 days Allergies: No Known Allergies Family History: History reviewed. No pertinent family history. Social History Tobacco Use Smoking status: None Smokeless tobacco: None Substance and Sexual Activity Drug use: None Sexual activity: None Alcohol Use: Not on file Review of systems: A 10 point ROS was performed and is non contributory other than what is stated in the HPI. Physical Exam Vitals: 03/06/23 1030 03/06/23 1031 03/06/23 1212 03/06/23 1215 BP: 136/76 128/71 125/72 125/72 Pulse: 97 93 89 89 Resp: 15 15 14 21 Temp: 36.9 ??C (98.5 ??F) 37 ??C (98.6 ??F) TempSrc: Oral Oral SpO2: 98% 98% 93% 97% Weight: (!) 156 kg (343 lb 14.7 oz) Height: 198.1 cm (6' 6 ) Constitutional: no acute distress Neurologic: alert and oriented Skin/Integumentary: warm, well perfused Respiratory: Nonlabored breathing Gastrointestinal: soft, non-tender, non-distended Genitourinary: Scrotal erythema and edema, the scrotal skin is soft/non indurated with pitting edema, mildly warm to the touch, no bullae, crepitus, or otherwise obviously necrotic skin, no foul odor, maximally tender area is a few centimeters posterior to the scrotum between the scrotum and the anus, unable to palpate a discrete fluctuant area Labs: The following lab results were personally reviewed by me: Lab Results Component Value Date WBC 17.3 (H) 03/06/2023 HGB 12.3 (L) 03/06/2023 HCT 36.7 (L) 03/06/2023 MCV 83.0 03/06/2023 LABPLAT 332 03/06/2023 Lab Results Component Value Date GLUCOSE 343 (H) 03/06/2023 CALCIUM 9.0 03/06/2023 SODIUM 133 (L) 03/06/2023 POTASSIUM 3.5 03/06/2023 CO2 21 (L) 03/06/2023 CHLORIDE 93 (L) 03/06/2023 BUNSER 16 03/06/2023 CREATININE 0.80 03/06/2023 No results found for: COLORU , CLARITYU , SPECGRAVU , PHURINE , PROTURQL , GLUCOSEUR , KETONESU , BILIRUBINUR , BLOODUR , UROBILINOGEN , NITRITEU , LEUKESTUR , WBCU , RBCU , EPISQUAMU , BACTERIAU , MUCUSU Images: The following images were personally reviewed by me. CT Abdomen Pelvis W Contrast EXAM DESCRIPTION: CT ABDOMEN PELVIS W CONTRAST REASON FOR STUDY: Abdominal infection suspected, is there abscess or cellulitis c/o scrotal pain x 2 weeks. Pt reports that he had an infection in his buttcrack that went down to his scrotum TECHNIQUE: CT scan of the abdomen and pelvis performed with intravenous and without oral contrast using helical scanning technique with dynamic intravenous contrast injection. Reconstructed coronal and sagittal MPR images reviewed. All images stored on PACS. Automated exposure control was used as a dose optimization technique for this examination. CONTRAST TYPE/DOSE: 100mL of IOVERSOL 350 MG IODINE/ML INTRAVENOUS SYRINGE injected via intravenous COMPARISON: None available REFERENCE: Per ACR white paper recommendations, unless otherwise specified no follow-up imaging is recommended for incidental renal and adrenal lesions per consensus recommendations based on imaging criteria. Further lab evaluation could be pursued based on clinical findings. FINDINGS: LOWER CHEST: No significant pulmonary abnormalities. No effusion. LIVER: Normal size. No identified cystic or solid masses. GALLBLADDER: Normally distended BILE DUCTS: No intrahepatic or extrahepatic ductal dilatation. SPLEEN: Normal size. No focal lesions. PANCREAS: No identified cystic or solid masses. No significant calcifications. No adjacent inflammation or peripancreatic fluid collections. Pancreatic duct not dilated. ADRENALS: Normal. KIDNEYS/URINARY TRACT: No identified significant cystic or solid masses. No visualized stones. No hydronephrosis or hydroureter. Symmetric enhancement. Urinary bladder is unremarkable. GI: No dilated bowel loops. No obvious wall thickening. Normal appendix. No significant diverticular disease. PERITONEUM: No ascites or free air. RETROPERITONEUM: Moderate-sized lymph nodes along the iliac deanne chains and inguinal regions. Smaller lymph nodes along the retroperitoneum. REPRODUCTIVE: Soft tissue thickening throughout the scrotum hydroceles. This becomes contiguous with additional swelling extending towards the peroneal surface posteriorly. Subcutaneous oval lesion measures 7.5 by 4.9 cm suggesting a subcutaneous fluid collection or abscess. Central lucencies consistent with air collections. This could represent a cellulitis with abscess. However, consider necrotizing fasciitis/Yamila's gangrene. VASCULATURE: No abdominal aortic aneurysm. MUSCULOSKELETAL: No significant abnormality. OTHER: No other abnormality. IMPRESSION: Extensive soft tissue thickening throughout the scrotum extending towards the peroneal surface posteriorly. 7.5 cm subcutaneous fluid collection with air collections suggesting abscess. However, consider necrotizing fasciitis/Yamila's gangrene. Moderate-sized lymph nodes along the iliac deanne chains and inguinal regions likely reactive in nature. THIS IS AN ELECTRONICALLY VERIFIED FINAL REPORT 03/06/2023 6:46 AM - Electronically signed by Wander García M.D. RB: SALLY Report ID: [id number] Reading Location: [place] [address] Assessment and Plan: Rene Hyatt is a 42 y.o. male with a perineal fluid collection/abscess and likely perineal/scrotal cellulitis. Exam and stability reassuring against a necrotizing infection. We would recommend drainage of the abscess in the OR and limited exploration to more definitively exclude NSTI. Discussed w general surgery, will be a joint case. Keep NPO Add on for urgent I&D, EUA w ACCS Agree w admission to medicine postoperatively Thank you for allowing us to participate in the care of this patient. Please do not hesitate to contact us by paging the adoption worker urology resident. Jamari Whitfield MD 03/06/23 Urology Resident Cosigned by Pilar Johnson MD at 03/06/2023 3:11 PM CDT Associated attestation - Pilar Johnson MD - 03/06/2023 3:11 PM CDT I have seen and examined the patient on 03/06/23. I agree with the findings and plan of care as documented in the resident's/fellow's note.. Patient with abscess in the perineal region. The scrotum is very edematous consistent with scrotal cellulitis, but no signs of Yamila's gangrene. We will plan to take him to the OR for I and D withgeneral surgery also present. * Hans Doyle MD - 03/06/2023 11:17 AM CDTAssociated Order(s): IP CONSULT TO GENERAL SURGERY Images from the original note were not included. [facility] Acute Care Surgery Consult Reason for Consult: soft tissue infection/abscess of the scrotum Requesting Provider: Carolee aDly MD Patient Name: Rene Hyatt : 1980 Date of Consult: 03/06/23 Assessment/Plan Rene Hyatt is a 42 y.o. man with an abscess of the scrotum/perineum. As this infection is largely confined to the scrotum, we recommend that Urology be consulted for an I&D along with General Surgery. We also recommend obtaining lower extremity vascular studies to assess for possible vascular disease given his diabetes and foot wounds, though the patient does notably have palpable lower extremity pulses. # Abscess of the scrotum/perineum - Recommend Medicine admission - Recommend Urology consult for potential I&D - Diet: NPO - Plan for OR on 03/06 for joint debridement with General Surgery and Urology - Start antibiotics - vancomycin, cefepime, and metronidazole - Trend lactate # Diabetes mellitus # Diabetic foot wound - Recommend inpatient Endocrinology and Podiatry consults - Obtain Hemoglobin A1c - As an inpatient, obtain vascular studies: bilateral lower extremity arterial duplex, bilateral lower extremity arterial Doppler The EGS/ACES consult service will follow. Staffed with Dr. Alexander Cloud at [facility] [place]. Hans Doyle MD Department of General Surgery [facility] Subjective HPI: Rene Hyatt is a 42 y.o. man with a past medical history of non-healing foot wounds who presents with a chief complaint of scrotal vs perineal abscess. The patient complains of a 2-week history of scrotal pain. Per ED documentation, the patient says he may have had an infection near his rectum which progressed to his scrotum. The pain progressively worsened over time, prompting his presentation to the ED at [place]. A CT abdomen/pelvis was obtained there which demonstrated scrotal soft tissue edema and a fluid collection about 7.5 x 4.9 cm in size in the scrotum/perineum. The patient's labs were significant for mild hyponatremia (Na 133), hyperglycemia (blood glucose 343), lactate 2.4 (now downtrended to 1.2), and leukocytosis (WBC 17.3). The patient received a dose of vancomycin, cefepime, and clindamycin while at the outside hospital. The patient has been transferred to [facility] for possible intervention. Upon assessment of the patient, his tissue infection appears largely confined to his scrotum. Of note, the patient has not been previously diagnosed with diabetes until today. He has non-healing left foot wounds, some of which have been present for several years. A left foot x-ray performed at [place] did not have evidence of osteomyelitis. History reviewed. No pertinent past medical history. No past surgical history on file. (Not in a hospital admission) No Known Allergies Social History Tobacco Use Smoking status: None Smokeless tobacco: None Substance and Sexual Activity Drug use: None Sexual activity: None Alcohol Use: Not on file History reviewed. No pertinent family history. Review of Systems: As noted in HPI Constitutional: No fever, no chills, no unintended weight loss Neurological: No headaches, no dizziness, no vision changes Cardiovascular: No chest pain, no palpitations Respiratory: No shortness of breath, no coughing Psychiatric: No mood changes, no depression Lymphatic: No swollen lymph nodes Hematology: No easy bruising/bleeding Integument: No itching, no non-healing sores Oral: No mouth sores Musculoskeletal: No joint stiffness Gastrointestinal: No nausea, no vomiting, no diarrhea, no abdominal pain, no constipation Genitourinary: No hematuria Vitals: Arrival Vitals [03/06/23 1030] Temp 36.9 ??C (98.5 ??F) Pulse 97 Resp 15 BP 136/76 SpO2 98 % Temp src Oral Heart Rate Source Patient Position BP Location FiO2 (%) Most Recent : Vitals: 03/06/23 1031 BP: 128/71 Pulse: 93 Resp: 15 Temp: SpO2: 98% No intake/output data recorded. No intake/output data recorded. Objective Physical exam: General: No acute distress. Alert and oriented. Obese, HEENT: Atraumatic. Anicteric. Neck: Supple. Non-tender. Preserved range of motion. Cardiovascular: Regular rate and rhythm. Pulmonary: Normal respiratory effort on room air. No wheezing or stridor. Chest: Non-tender to palpation. Abdomen: Soft, non-distended, non-tender. No masses or organomegaly. Anorectal: Areas of erythema around anus, non-tender to touch. Genitourinary: Edematous, erythematous, tender scrotum/perineum. No purulent or bloody drainage. Extremities: Warm and well-perfused. Preserved range of motion. Palpable radial and dorsalis pedis pulses bilaterally. Left foot with non-healing wounds. Neuro: Cranial nerves II-XII grossly intact. Psych: Appropriate mood. Lab/Radiology/Diagnostic Review: Laboratory review: Lab results in the last 24 hours: Recent Results (from the past 24 hour(s)) CBC with auto differential Collection Time: 03/06/23 5:35 AM Result Value Ref Range WBC 17.3 (H) 3.8 - 9.9 K/cumm Hgb 12.3 (L) 13.0 - 17.5 g/dL Hct 36.7 (L) 38.9 - 50.3 % Plt 332 150 - 400 K/cumm MPV 9.2 9.1 - 12.3 fL RBC 4.42 4.30 - 5.80 M/cumm MCV 83.0 81.3 - 96.4 fL MCH 27.8 27.1 - 33.3 pg MCHC 33.5 32.3 - 35.7 g/dL RDW CV 12.8 11.1 - 14.9 % RDW SD 38.8 35.7 - 48.1 fL NRBC abs 0.00 0.00 - 0.01 K/cumm Comprehensive metabolic panel Collection Time: 03/06/23 5:35 AM Result Value Ref Range Sodium 133 (L) 135 - 145 mmol/L Potassium, pl 3.5 3.3 - 4.9 mmol/L Chloride 93 (L) 97 - 110 mmol/L CO2 21 (L) 22 - 32 mmol/L Anion gap 19 (H) 2 - 15 mmol/L BUN 16 6 - 25 mg/dL Creatinine 0.80 0.80 - 1.30 mg/dL Glucose 343 (H) 70 - 199 mg/dL Calcium 9.0 8.5 - 10.3 mg/dL Bilirubin, total 0.4 0.1 - 1.2 mg/dL Protein, pl 7.1 6.5 - 8.5 g/dL Albumin 2.7 (L) 3.5 - 5.0 g/dL Alk phos 142 (H) 40 - 130 Units/L ALT 15 7 - 55 Units/L AST 21 10 - 50 Units/L Sepsis Lactate w/ Reflex Collection Time: 03/06/23 5:35 AM Result Value Ref Range Sepsis Lactate 2.4 (Critical) 0.7 - 2.0 mmol/L Pro B-type natriuretic peptide Collection Time: 03/06/23 5:35 AM Result Value Ref Range NT-proBNP 362 (H) <=300 pg/mL CRP (acute phase) Collection Time: 03/06/23 5:35 AM Result Value Ref Range CRP 272.2 (H) <=10.0 mg/L Erythrocyte sedimentation rate Collection Time: 03/06/23 5:35 AM Result Value Ref Range Erythrocyte sedimentation rate 103 (H) 1 - 15 mm/hr Troponin T high-sensitivity series (baseline, 2hr, 4hr, 6hr) Collection Time: 03/06/23 5:35 AM Result Value Ref Range Trop T hs 14 <=22 ng/L Differential, auto Collection Time: 03/06/23 5:35 AM Result Value Ref Range Neutrophil abs 13.4 (H) 1.7 - 6.5 K/cumm Imm gran abs 0.2 (H) 0.0 - 0.1 K/cumm Lymphocyte abs 2.1 0.8 - 3.3 K/cumm Monocyte abs 1.4 (H) 0.2 - 0.8 K/cumm Eosinophil abs 0.1 0.0 - 0.5 K/cumm Basophil abs 0.1 0.0 - 0.1 K/cumm Neutrophil pct 77.7 % Imm gran pct 0.9 % Lymphocyte pct 12.3 % Monocyte pct 8.2 % Eosinophil pct 0.6 % Basophil pct 0.3 % eGFR Collection Time: 03/06/23 5:35 AM Result Value Ref Range eGFR 113 mL/min/1.73 m2 POCT creatinine for contrast evaluation Collection Time: 03/06/23 5:44 AM Result Value Ref Range Creatinine POC 0.80 0.80 - 1.30 mg/dL POCT creatinine for contrast evaluation Collection Time: 03/06/23 5:53 AM Result Value Ref Range Creatinine, POC 0.8 0.6 - 1.3 mg/dL Lot Number 0 QC High 1.3 QC Low 0.6 QC Pass/Fail Pass Troponin T high-sensitivity 2-hour Collection Time: 03/06/23 7:20 AM Result Value Ref Range Trop T hs 18 <=22 ng/L Trop T hs delta 4 ng/L Trop T hs interp Insignificant Sepsis Lactate w/ Reflex Collection Time: 03/06/23 8:23 AM Result Value Ref Range Sepsis Lactate 1.2 0.7 - 2.0 mmol/L Sepsis Lactate w/ Reflex Collection Time: 03/06/23 11:02 AM Result Value Ref Range Sepsis Lactate 1.8 0.7 - 2.0 mmol/L XR Foot Left 3 or More Views EXAM DESCRIPTION: XR FOOT LEFT 3 OR MORE VIEWS REASON FOR STUDY: pain Pt states diabetic foot ulcer for 4 years TECHNIQUE: 3 radiographic view(s) of the left foot . COMPARISON: None available FINDINGS: BONES/JOINTS: Obliquely oriented lucency through the base of the 5th metatarsal that is most characteristic of an os vesalianum pedis although chronic fracture nonunion could have a similar appearance. No definite acute fracture or malalignment. Normal bone mineralization. Joint spaces are maintained. SOFT TISSUES: 1.1 cm soft tissue defect about the ventral forefoot seen on the lateral view. No soft tissue emphysema or erosion of the underlying bone. Soft tissues are otherwise unremarkable. IMPRESSION: No definite acute osseous abnormality. 1.1 cm soft tissue defect about the plantar forefoot with no soft tissue emphysema or radiographic evidence of osteomyelitis. If clinical concern, MRI is more sensitive for early bone changes. Obliquely oriented lucency through the base of the 5th metatarsal most characteristic of an os vesalianum pedis although chronic fracture nonunion could have a similar appearance and clinical correlation is needed. THIS IS AN ELECTRONICALLY VERIFIED FINAL REPORT 03/06/2023 7:26 AM - Electronically signed by Javier Owusu M.D. AG: AG Report ID: [id number] Reading Location: [id number] XR Chest 1 Vw Portable EXAM DESCRIPTION: XR CHEST 1 VIEW REASON FOR STUDY: sob, sob Pt states cough off and on for his entire life TECHNIQUE: Single-view COMPARISON: None available FINDINGS: Central vascularity mildly prominent. Perihilar interstitial densities could indicate vascular congestion or peribronchial inflammation. No consolidation, effusion or pneumothorax. IMPRESSION: Perihilar densities could indicate vascular congestion or peribronchial inflammation. THIS IS AN ELECTRONICALLY VERIFIED FINAL REPORT 03/06/2023 6:55 AM - Electronically signed by Wander García M.D. RB: SALLY Report ID: [id number] Reading Location: [id number] CT Abdomen Pelvis W Contrast EXAM DESCRIPTION: CT ABDOMEN PELVIS W CONTRAST REASON FOR STUDY: Abdominal infection suspected, is there abscess or cellulitis c/o scrotal pain x 2 weeks. Pt reports that he had an infection in his buttcrack that went down to his scrotum TECHNIQUE: CT scan of the abdomen and pelvis performed with intravenous and without oral contrast using helical scanning technique with dynamic intravenous contrast injection. Reconstructed coronal and sagittal MPR images reviewed. All images stored on PACS. Automated exposure control was used as a dose optimization technique for this examination. CONTRAST TYPE/DOSE: 100mL of IOVERSOL 350 MG IODINE/ML INTRAVENOUS SYRINGE injected via intravenous COMPARISON: None available REFERENCE: Per ACR white paper recommendations, unless otherwise specified no follow-up imaging is recommended for incidental renal and adrenal lesions per consensus recommendations based on imaging criteria. Further lab evaluation could be pursued based on clinical findings. FINDINGS: LOWER CHEST: No significant pulmonary abnormalities. No effusion. LIVER: Normal size. No identified cystic or solid masses. GALLBLADDER: Normally distended BILE DUCTS: No intrahepatic or extrahepatic ductal dilatation. SPLEEN: Normal size. No focal lesions. PANCREAS: No identified cystic or solid masses. No significant calcifications. No adjacent inflammation or peripancreatic fluid collections. Pancreatic duct not dilated. ADRENALS: Normal. KIDNEYS/URINARY TRACT: No identified significant cystic or solid masses. No visualized stones. No hydronephrosis or hydroureter. Symmetric enhancement. Urinary bladder is unremarkable. GI: No dilated bowel loops. No obvious wall thickening. Normal appendix. No significant diverticular disease. PERITONEUM: No ascites or free air. RETROPERITONEUM: Moderate-sized lymph nodes along the iliac deanne chains and inguinal regions. Smaller lymph nodes along the retroperitoneum. REPRODUCTIVE: Soft tissue thickening throughout the scrotum hydroceles. This becomes contiguous with additional swelling extending towards the peroneal surface posteriorly. Subcutaneous oval lesion measures 7.5 by 4.9 cm suggesting a subcutaneous fluid collection or abscess. Central lucencies consistent with air collections. This could represent a cellulitis with abscess. However, consider necrotizing fasciitis/Yamila's gangrene. VASCULATURE: No abdominal aortic aneurysm. MUSCULOSKELETAL: No significant abnormality. OTHER: No other abnormality. IMPRESSION: Extensive soft tissue thickening throughout the scrotum extending towards the peroneal surface posteriorly. 7.5 cm subcutaneous fluid collection with air collections suggesting abscess. However, consider necrotizing fasciitis/Yamila's gangrene. Moderate-sized lymph nodes along the iliac deanne chains and inguinal regions likely reactive in nature. THIS IS AN ELECTRONICALLY VERIFIED FINAL REPORT 03/06/2023 6:46 AM - Electronically signed by Wander García M.D. RB: SALLY Report ID: [id number] Reading Location: [id number] Cosigned by Alexander Cloud MD at 03/09/2023 10:29 AM CDT Associated attestation - Alexander Cloud MD - 03/09/2023 10:29 AM CDT I have seen and examined the patient on 03/06/2023. I agree with the findings and plan of care as documented in the resident's/fellow's note. and as discussed with the resident/fellow.. documented in this encounter Nursing Notes * Shaneka Bullard, RN - 03/24/2023 4:12 PM CDT Asked to see patient for CHELITA drain removal from scrotal. On assessment site with no drainage would recommend painting with Betadine solution, allow to dry and leave open to air. Patient also with yellow slough to posterior scrotal incision. Would recommend a surgery consult for further evaluation. For now recommend painting with Betadine solution, allow to dry and leave opento air. For questions or concerns please call wound/ostomy team. Thank you. 03/24/23 1145 Surgical Site 03/06/23 Perineum Date First Assessed/Time First Assessed: 03/06/23 1728 Location: Perineum Site Assessment Slough/fibrin Franchesca-wound Assessment Dry;Intact Closure Approximated;Sutures Drainage Amount None Drainage Description Serosanguineous Drainage Odor No odor Dressing Status New;Clean, dry, intact Dressing Intervention Site care Dressing Open to air Interventions Cleansed * Shaneka Bullard, RN - 03/24/2023 4:11 PM CDT Asked to see patient for wound to left foot. Please see assessment flowsheet. Would recommend cleansing with wound cleanser, apply Intra-site gel to wound base, cover with an Allevyn GB dressing. Change dressing every other day and PRN. Discontinue the Betadine. 03/24/23 1145 Wound 03/06/23 Ulceration (non-pressure ulcer) Left Foot Diabetic ulcer Date First Assessed/Time First Assessed: 03/06/23 0723 Present on Hospital Admission: Yes Wound Type: Ulceration (non-pressure ulcer) Location Orientation: Left Location: (c) Foot Wound Description (Comments): Diabetic ulcer Wound Status Healing Site Assessment Red;Moist Franchesca-wound Assessment Dry;Flaky Margins Attached edges Closure Approximated Drainage Amount None Drainage Odor No odor Dressing Status Changed Dressing (damp to dry with Betadine solution.) Interventions Cleansed Wound Length (cm) 2 cm Wound Width (cm) 1.5 cm Calculated Wound Size (cm^2) 3 cm^2 * Rigo Doyle RN - 03/24/2023 3:44 PM CDT 03/24/23 1541 Pre-Education Assessment Time In 1405 Time Out 1427 Units of Service 1 Visit Type Reinforce (initial visit on 03/11/2023) Introduction ID verified;Alert/ oriented x 4;Education provided with patient approval;Patient present and able to participate Inpatient Recommendations RN to practice with patient Injections;Fingersticks RN to reinforce with patient Consistent carb diet;Carb counting;Insulin dose calculation;Insulin injection site rotation Consults Made Dietitian Consults Recommended Epidemiologist Discharge Recommendations Insulin Pen Humalog Kwik Pen (pkg of 5);Lantus Solostar Pre-filled Pen (pkg of 5) Non-Insulin Pen Trulicity Pen Pen Ewing Ultra fine 5 mm Glucometer (Glucocard shine meter was provided.) Test Strips (glucocard shine strips) Lancets Lancets Blood Glucose Testing Regimen 4 times per day (premeals, at bedtime, and prn) Diabetes/Education Follow Up Primary Care Provider;Epidemiologist;Outpatient Diabetes Education Additional Recommendations Home Health followup for evaluation and education (glucagon kit for severe hypoglycemia if appropriate) Reviewed the use of patient's glucometer, insulin demo pen and a basal/bolus insulin regimen as patient requested. Also educated on Trulicity pen. Patient demonstrated understanding and able to return skill demonstration. Recommend home health follow up for evaluation and additional education. * Rigo Doyle RN - 03/18/2023 2:27 PM CDT 03/18/23 1402 Pre-Education Assessment Time In 1402 Visit Type (please see educator's notes on 03/11 and 03/13/2024) Inpatient Recommendations RN to practice with patient Injections;Fingersticks RN to reinforce with patient Consistent carb diet;Carb counting;Insulin dose calculation;Insulin injection site rotation Consults Made Dietitian Consults Recommended Epidemiologist Discharge Recommendations Additional Recommendations Home Health followup for evaluation and education (if appropriate) Patient has received diabetes education during this admission. Received a new referral. I spoke with patient over the phone. He said he would like to talk to an educator prior discharge from the hospital or at rehab facility. Patient's discharge date and medication regimen undetermined at this time. Recommend to cancel this referral and re-order a referral when patient is ready to be see again. Jacques SOFTWARE TECHNICIAN and Naveen SOFTWARE TECHNICIAN aware. If patient is discharged prior to seeing recycling attendant, please have nurse provide diabetes education to patient/caregiver. And order home health for evaluation and additional education if appropriate. * Rigo Doyle RN - 03/13/2023 12:42 PM CDT 03/13/23 1236 Pre-Education Assessment Time In 1117 Time Out 1215 Units of Service 4 Visit Type Follow up (please see initial visit note on 03/11/2023) Introduction ID verified;Alert/ oriented x 4;Education provided with patient approval;Patient present and able to participate Home Supplies Yes needs assistance (Currently patient has no medical insurance. Medicaid pending. Will need a voucher for his BG testing supplies and medications.) Inpatient Recommendations RN to practice with patient Injections;Fingersticks RN to reinforce with patient Consistent carb diet;Carb counting;Insulin dose calculation;Insulin injection site rotation Consults Made Dietitian Consults Recommended Epidemiologist Discharge Recommendations Insulin Pen Humalog Kwik Pen (pkg of 5);Lantus Solostar Pre-filled Pen (pkg of 5) Pen Ewing Ultra fine 5 mm Glucometer (Provided a glucocard shine meter.) Test Strips (Glucocard shine strips) Lancets Lancets Blood Glucose Testing Regimen 4 times per day (premeals, at bedtime, and prn) Diabetes/Education Follow Up Primary Care Provider;Outpatient Diabetes Education;[facility] Additional Recommendations Home Health followup for evaluation and education (including glucagon kit teaching if appropriate) Educated on type I diabetes, diabetes self-management, and a basal/bolus insulin regimen. Patient verbalized understanding and able to return skill demonstration. He demonstrated understanding of a basal/bolus insulin regimen, including meal plus correction bolus insulin regimen. Discussed the importance of glycemic and weight control, adherence, and follow up. Patient verbalized understanding. * Luz Elena Gentile RN - 03/11/2023 3:23 PM CDT Patient educated on importance of turning to reduce risk of pressure ulcers. Patient stated he is able to turn himself and has been doing so. RN has not seen patient in any position other than supine. Assistance offered to help turn, politely declined. * Rigo Doyle RN - 03/11/2023 12:40 PM CDT 03/11/23 1236 Pre-Education Assessment Time In 1110 Time Out 1125 Units of Service 1 Visit Type Initial Introduction ID verified;Alert/ oriented x 4;Education provided with patient approval;Patient present and able to participate Provider None Treatment Prior To Admission Newly Diagnosed Knowledge Base Needs Full Education Hemaglobin A1c Knows value (13.3%. Reviewed A1c value and goal) Home Testing New onset, not applicable Adherence To New onset, not applicable Exercise Habits Sedentary (Patient reports that he has been taking care of his mother who is partially paralyzed at home. He doesn't have time to take care of himself.) Hypoglycemia New onset, unknown at this time Home Supplies Yes needs assistance (Per patient, currently, he has no medical insurance.) Inpatient Recommendations RN to practice with patient Injections;Fingersticks RN to reinforce with patient Consistent carb diet;Carb counting;Insulin dose calculation;Insulin injection site rotation Consults Made Dietitian Consults Recommended Epidemiologist Discharge Recommendations Insulin Pen (TBD) Non-Insulin Pen (TBD) Blood Glucose Testing Regimen (TBD) Diabetes/Education Follow Up (TBD) Met with patient. Patient has not received his glucometer supplies yet. Patient's discharge date and medication regimen undetermined at this time. Per patient, he is going to OR tomorrow. institutional asset manager will return for additional teaching on Thursday (03/12/2023). * Rigo Doyle RN - 03/11/2023 9:21 AM CDT 03/11/23 0920 Pre-Education Assessment Time In 0920 Home Supplies Yes needs assistance (Currently, patient has no medical insurance.) Inpatient Recommendations RN to practice with patient Injections;Fingersticks RN to reinforce with patient Consistent carb diet;Carb counting;Insulin dose calculation;Insulin injection site rotation Consults Made Dietitian Consults Recommended Epidemiologist Patient's discharge medication regimen undetermined at this time. Asked Scott MARR to order BG testing supplies from mobile pharmacy. Educator will follow up at a later time/date and plan to see patient once discharge regimen determined. * Angelika Plasencia RN - 03/10/2023 4:02 PM CDT Transferred-in from 7800 per stretcher. A&O x4. Wound dressing over franchesca-anal area reinforced. Min cath in place. Agree with shift assessment unless otherwise noted. * Luis Daniel Lucero RN - 03/10/2023 7:28 AM CDT Patient off floor to surgery for wound debridement. documented in this encounter ED Notes * Carolee Daly MD - 03/06/2023 10:54 AM CDT Images from the original note were not included. 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 He presented there at 4:30 a.m. complaining of 2 weeks of scrotal swelling and pain. He says it started with a buttock region infection that progressed to swelling in his scrotum. Pain is 10 out of 10. At the outside hospital he received vancomycin, cefepime, clindamycin. His lactate were originally elevated to 2.4, but repeat lactate was 1.2 after receiving 3 L of fluid. 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 He also has an ulcer at the base of the 1st metatarsalof the left foot and at the tip of the left big toe. He says the metatarsal ulcer has been present for the past 2-3 years, and has been managed with wound care by wrapping the foot. Recently he has been having difficulty taking care of the wound because he notes some increased discharge and increase in pain. The ulcer at the tip of the toe is new. To note that the patient does not have an official previous diagnosis of diabetes and was unaware of his condition. He does not take any medications at home except for tramadol that was recently prescribed for the scrotal pain. Patient History: Patient Active Problem List Diagnosis Date Noted Scrotal abscess 03/06/2023 Perineal abscess 03/06/2023 History reviewed. No pertinent past medical history. History reviewed. No pertinent surgical history. History reviewed. No pertinent family history. Social History Tobacco Use Smoking status: Never Smokeless tobacco: None Substance and Sexual Activity Alcohol use: None Drug use: None Sexual activity: None Social History Social History Narrative Not on file Review of Systems Review of Systems Physical Exam ED Triage Vitals Temp Pulse Resp BP SpO2 03/06/23 1030 03/06/23 1030 03/06/23 1030 03/06/23 1030 03/06/23 1030 36.9 ??C (98.5 ??F) 97 15 136/76 98 % Temp src Heart Rate Source Patient Position BP Location FiO2 (%) 03/06/23 1030 03/06/23 1842 03/06/23 1842 03/06/23 1842 -- Oral Monitor HOB 30 degrees Right arm Height Height Method Weight Weight Method 03/06/23 1031 03/06/23 1031 03/06/23 1031 03/06/23 1031 1.981 m (6' 6 ) Stated (!) 156 kg (343 lb 14.7 oz) Stated Physical Exam Constitutional: Appearance: He is obese. Cardiovascular: Rate and Rhythm: Normal rate and regular rhythm. Heart sounds: No murmur heard. Pulmonary: Effort: Pulmonary effort is normal. Breath sounds: Normal breath sounds. Comments: Auscultation was done anteriorly to void inconvenience to the patient given that he is insevere pain Abdominal: General: There is distension. Tenderness: There is no abdominal tenderness. Comments: Obese Genitourinary: Comments: Severe swelling of the scrotum. Unable to appreciate crepitus. No fluctuance on exam although documented abscess on CT. Musculoskeletal: Comments: Left foot base of the 1st metatarsal ulcer an ulcer at the tip of the 1st toe on the leftside Neurological: General: No focal deficit present. Mental Status: He is alert. Psychiatric: Mood and Affect: Mood normal. MDM Medical Decision Making Amount and/or Complexity of Data Reviewed Labs: ordered. Risk Prescription drug management. Decision regarding hospitalization. 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 He received vanc cefepime and clindamycin. We scheduled his vancomycin, cefepime and clindamycin. General surgery was consulted and saw the patient, pending their recommendation and surgery schedule. For his pain, we ordered Dilaudid 0.5 mg. Type and screen, PT INR ordered. Basic labs will not be repeated as he has done at the outside hospital earlier this morning. Given that his lactate was 2.4 originally down to 1.2 at the outside hospital, we will repeat lactate and trend. Attending Summary of Care I have seen and examined this patient, I have discussed/reviewed the history, physical exam and assessment with the resident. We are in agreement with treatment plan. 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 Patient notes that he started to have an infection in his buttockregion followed by pain and swelling in his scrotum. Patient was initially evaluated at OSH, where review of records shows CT scan that shows concerning for abscess and gangrene. Patient was started on Vanc/Cefe/Clinda and transferred for further assessment nad care. Patient notes pain has continued, no current fevers. Patient also notes a foot wound in his left foot that has been there for the past 2-3 years ROS: no fever/chills. 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 Plan: 1) review OSH images and labs 2) INR, ptt, lactate, type ands screen 3) consult surgery 4) consult urology 5) continue Vanc/Cefe/Clindamycin 6) pain control 7) anticipate admission ED Course as of 03/07/23 1716 Time: 03/06 1129 Comment: Urology was consulted. They think it might not be yamila, but rather just the abscess. They will come and evaluate the patient. He will require OR in any case to drain the abscess. Surgeryand Urology will continue to follow. We also consulted podiatry and ordered arterial duplex BLE andBLE doppler for his left foot ulcers. By: Anil Birmingham MD Time: 03/06 7186 Comment: Urology examined patient, assessment is that it is less likely yamila's, the gas on CT seems to be within the abscess. They will coordinate with general surgery, he will require OR for drainage of the abscess, and if there is any signs of gangrene, they will proceed with debridement. Plan is to admit to surgery after that, but we have yet to discuss dispo plan with surgery. Podiatry will see patient once he is on the floor. By: Anil Birmingham MD Time: 03/066 Comment: SOCIAL: patient's mother is paraplegic, patient is worried about her and does not have a cellphone. I called her and updated her on her son's situation, stating that he will require OR. She is worried and would like us to update her on any advancement that occurs, especially post-op. Contact info: [place]: [phone] By: Anil Birmingham MD Time: 03/06 1155 Comment: TEACH RESIDENT NOTE: 42 M no sig pmh transferred from [place] for cf Yamila's gangrene. First noted perineal discomfort progressed to scrotal swelling + pain over last two weeks. Presented to [place] this morning with WBC 17.3 elevated CRP/ESR, glucose 300s (not diagnosed diabetic), CT concerning for scrotal abscess vs NSTI. Start on vanc/cefe/clinda and received 3L IVF prior to transfer. Here AOx3 c/o scrotal pain, also noted deep ulcers x2 to L foot which probe to bone (plain films obtained at [place]). Will provide pain control, continue abx, discuss with surgery and urology, engage podiatry for inpatient foot wound care. By: Elisabeth Ferrara MD Time: 03/06 1314 Comment: Patient has been evaluated by both surgery and urology, they will operate. They recommend admission to medicine for further workup and management of his possible diabetes and foot ulcer. Podiatry will follow as well upon admission. By: Anil Birmingham MD Time: 03/06 1611 Comment: Urology requested control of blood glucose before surgery. Patient was at US at the time, and will be sent to OR. As such, no insulin was given. BG should be controlled by the surgical/urology team prior to surgery By: Anil Birmingham MD Scrotal abscess Perineal abscess Carolee Daly MD 03/06/23 1148 Carolee Daly MD 03/06/23 1151 Anil Birmingham MD Resident 03/06/23 1302 Carolee Daly MD 03/06/23 1432 Anil Birmingham MD Resident 03/06/23 1527 Carolee Daly MD 03/07/23 1716 * Mary Rogers RN - 03/06/2023 10:24 AM CDT PMD for testicular pain and swelling x2 wks and found to have gangrene. Denies fever/chills. VSS. Vanc given at OSH. * Mary Rogers RN - 03/06/2023 10:24 AM CDT Bed: [facility] Expected date: 03/06/23 Expected time: 7:56 AM Means of arrival: Ambulance Comments: Mary Rogers RN 03/06/23 1024 documented in this encounter Miscellaneous Notes * Plan of Care - Kateryna Martinez, HOUSEKEEPING/LAUNDRY SUPERVISOR - 03/25/2023 5:01 PM CDT DIPIKA received call from hospital nursing iron and steel work supervisor, Hima regarding pt. It was DIPIKA understanding, pt was d/c from [facility]00 today and he received call from EMS reporting that upon arrival to their destination, pt's home was condemned and pt would be returning to the ED. In reviewing pt's chart SW learned pt was admitted on 03/06 for urology evaluation and surgical care. 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 Pt was d/c with home health for disease and medication management w/wound and ostomy care services. Also noted is pt needs assistance to leave home and has unsteady gait being a fall risk. Based on pt's needs the residence he returned to is not an appropriate environment. Pt's return to the hospital appeared inevitable and necessary to explore alternatives to ensure pt's safety and that his medical needs are met. SW has informed manufacturing shift supervisor SW of pt's return and will collaborate with CCSW in the morning. CÉSAR Levi, HOUSEKEEPING/LAUNDRY SUPERVISOR * Plan of Care - Claar Carrizales RN - 03/25/2023 2:57 PM CDT Goals: Clinical Goals for the Shift: monitor VS, assist in ambulation, wound care, maintain comfort and safety Summary: Problem: Health Behavior: Goal: Understanding of discharge needs will improve Outcome: Progressing Problem: Activity: Goal: Mobility will improve Outcome: Progressing * Plan of Care - Graham Salmeron RN - 03/25/2023 12:07 PM CDT Per Medical Chart/Rounds/IDR: Patient is medically ready for discharge per primary team pending final evaluation by surgical team. Plan for discharge to home with home health services after meeting with surgical team on 03/25. ADD: 03/25/23 Plan & referrals made/in place: Current referrals include: [facility] with [facility] Home [facility] (P: [phone]) Support following discharge: Friends and [facility] Transportation: [employer] (P: [phone] Trip: [phone] Time: 3:00 PM on 03/25). Patient's neighbor Kemal will allow EMS crew into home. With permission from patient, CYNTHIA spoke to Kemal (P: [phone]) who states that he will be available to let the EMS crew into the home. CYNTHIA provided [facility] with contact information for Kemal. F/U Appointments: 04/01/23 at 10:40 am per [facility] Coordinator Patient's Identified Problem/Goal Problem: Ensure acute medical needs are met and that patient has a safe discharge plan. Goal: Secure a discharge plan that patient/family are agreeable with and ensure patient has continuum of care. Patient and/or family are agreeable with plan. Case Management will continue to follow and assist with discharge planning as needed. Please see the [facility] Treatment Team for the patient's assigned Note Teller. * Plan of Care - Eric Wolf RN - 03/25/2023 9:59 AM CDT Call placed to patient's phone. Interviewed patient via phone and discussed [facility] services. Confirmed homebound status and verified patient is currently not active with any other [facility]. Informed patient that staff will be calling within 48 hours regarding an appointment. * Plan of Care - Eric Wolf, RN - 03/25/2023 8:56 AM CDT I called and spoke with patient's PCP office, Dr. Herb Burden , and received confirmation that they will follow for home health needs and orders per Cyn 03/24 @ 1051. * Consults, Subsequent - Margarita Hodge NP - 03/25/2023 7:21 AM CDT Endocrinology & Diabetes Progress Note Patient: Rene Hyatt, 42 y.o. male (: 1980) Room: [place] [address] [address] ( ) LOS: 19 Rene Hyatt is a 42 y.o. male with PMH significant for non healing foot wounds, who presentedto OSH for scrotal pain and swelling for 2 weeks prior. He was admitted with DKA. He is s/p wound debridement of perianal abscess (Jamil 03/12/23). The Endocrinology/Diabetes Service is providing diabetes management/discharge planning recommendations during this hospitalization. Interval Events & Subjective There were no acute events overnight. Patient is sitting up in bed eating breakfast. Appetite is good. He has some nausea this AM but no longer nauseated. Denies vomiting. States he is feeling much better. Diet: Adult Diet Restricted; Consistent Carbohydrate Over the previous 24 hours, blood glucose near target with range of 153-198 mg/dl with 63 units TDDinsulin coverage. Target inpatient blood glucose is 100- 180 mg/dl. Fasting blood glucose this morning was 187 mg/dl. Recent Labs Lab Units 03/25/23 0819 03/25/23 0451 03/25/23 0136 03/24/23 2147 03/24/23 1650 03/24/23 1322 03/24/23 0838 03/23/23 2035 03/23/23 1714 03/23/23 1223 POC GLUCOSE MONITOR mg/dL 187 198 192 163 155 153 168 159 148 178 Interval Review of Systems Twelve point ROS reviewed and negative except as noted in HPI. All other systems negative. Vitals & Exam Temp: [36.6 ??C (97.8 ??F)-36.9 ??C (98.4 ??F)] 36.6 ??C (97.8 ??F) Pulse: [87-88] 87 BP: (128-148)/(65-83) 148/72 Resp: [18] 18 SpO2: [95 %-97 %] 97 % I/O this shift: In: 240 [P.O.:240] Out: - Physical Exam Physical Exam Gen : no acute distress, alert, appropriate, cooperative, appears stated age, well-developed, well-nourished, obese, sitting up in bed in chair position HENT : normocephalic, atraumatic Eyes : conjunctiva clear, no proptosis/exophthalmos/lid lag Pulm : non-labored, on room air Extr : atraumatic, L foot wrapped Skin : warm,dry Neuro : alert, speech fluent, comprehension intact Psych : cooperative, appropriate mood and affect, pleasant, good insight & judgment Data Medications, labs, imaging, and diagnostics independently reviewed in Epic and commented on below. No results found for: TSH , T3FREE , FREET4 , TSI , THYROGLOBULI , THGAB Lab Results Component Value Date CHOL 106 03/06/2023 TRIG 93 03/06/2023 HDL 20 (L) 03/06/2023 LDLCALC 67 03/06/2023 Lab Results Component Value Date PTH 12 (L) 03/09/2023 25HYDROVITD <6 (L) 03/08/2023 CPEPTIDE 2.24 03/08/2023 [id number] 0.31 (H) 03/09/2023 Lab Results Component Value Date HGBA1C 13.3 (H) 03/06/2023 Assessment & Plan # Type 2 Diabetes Mellitus?, Uncontrolled, complicated by DKA-resolved Current HbA1c and reliability:13.3% on 03/06/23 Diabetes Provider: none Insurance: None Home regimen:none He has residual insulin secretion with Cpeptide of 1.84 with BG 142 [place] Ab 0.33 although TDD = 60 units Recommendations: Basal Insulin: - glargine 20 units qHS Mealtime/Bolus Insulin: - lispro 12 units TID AC Correctional/Sliding-Scale Insulin: - resistant correctional lispro scale TID AC, HS - If NPO, hold meal time and switch to q4h Insulin resistant sliding scale - POC glucoses TID AC, HS, 2AM when eating - Consistent carb diet when eating; no juices, no regular soda [X] please consult the diabetes nurse educator to meet with him (seen on 03/13 by Modesta) - When NPO, continue glargine, hold mealtime lispro, change correctional (sliding scale) lispro andPOC glucoses to Q4hr - Consider D5/0.45NS 100 mls/hr or D10 50 ml/hr if prolonged NPO (>12hrs) # HLD: - His diabetes and elevated cholesterol are indications for statin therapy. - atorvastatin 20 mg nightly # HTN: - ACEi/ARB use in persons with both type 1 and type 2 diabetes can prevent the progression of renaldisease. #Hypocalcemia -resolved #Vit D def - Ca 8.0. albumin 2 days ago was low at 2.1, corrected Ca is 9.1. Recommend repeating ionized Ca, BMP and albumin - vitamin D undetectable - Continue 50,000IU increase to twice weekly x2 months; then transition to maintenance dose of 2000-5,000 IU daily. ## Discharge Planning Use ???Adult END Diabetes Discharge?? Order Set Discharge regimen = Glargine 20 units qHS + Lispro 10 units TID AC + Metformin 500 mg PO BID + Trulicity 0.75 mg SC q weekly (although may be cost-prohibitive with insurance coverage) - If the patient would like to be seen in the Diabetes Center, we will request an outpatient appointment. (Diabetes Center Scheduling: ) -- Margarita Hodge NP Endocrinology, Metabolism, & Lipid Research [phone] Contact Info: New Consults: [phone]) General Endocrine (Non-Diabetes): [phone] (Check 'Treatment Team' assignment for Diabetes 1 vs 2 vs 3) Diabetes After-Hours & Weekends: Diabetes Fellow [phone] or [phone] * Plan of Care - Sachin, Yancy Redmond RN - 03/25/2023 5:27 AM CDT Problem: Health Behavior: Goal: Understanding of discharge needs will improve Outcome: Progressing Problem: Activity: Goal: Mobility will improve Outcome: Progressing Problem: Lack of Knowledge: Goal: Understanding of ways to prevent future skin breakdown will improve Outcome: Progressing Goal: Ability to identify appropriate dietary choices will improve Outcome: Progressing Problem: Nutritional: Goal: Dietary intake will improve Outcome: Progressing Goal: Ability to maintain a balanced intake and output will improve Outcome: Progressing Problem: Skin Integrity: Goal: Risk for impaired skin integrity will decrease Outcome: Progressing Goal: Ability to demonstrate warm and dry skin will improve Outcome: Progressing Goal: Circulation will improve to fullest extent possible Outcome: Progressing Problem: Lack of Knowledge: Goal: Ability to develop a pain control plan will improve Outcome: Progressing Goal: Ability to identify pain intensity on a pain scale and rate it consistently will improve Outcome: Progressing Goal: Ability to notify healthcare provider of pain before it becomes unmanageable or unbearable will improve Outcome: Progressing Problem: Lack of Knowledge Goal: Knowledge of disease or condition will improve Outcome: Progressing Problem: Lack of Knowledge: Goal: Ability to state ways to decrease the risk of falls will improve Outcome: Progressing Problem: Safety: Goal: Will remain free from falls Outcome: Progressing Goal: Will remain free from injury from falls Outcome: Progressing Goal: Will remain free from falls and injury in home environment Outcome: Progressing Goals: Clinical Goals for the Shift: monitor VS, assist in ambulation, wound care, maintain comfort and safety Summary: vss, comfort and safety , wound care * Plan of Care - Marina Washington RN - 03/24/2023 5:42 PM CDT Goals: Clinical Goals for the Shift: monitor VS, assist in ambulation, wound care, maintain comfort and safety Summary: Problem: Health Behavior: Goal: Understanding of discharge needs will improve Outcome: Progressing Problem: Activity: Goal: Mobility will improve Outcome: Progressing Problem: Lack of Knowledge: Goal: Understanding of ways to prevent future skin breakdown will improve Outcome: Progressing Goal: Ability to identify appropriate dietary choices will improve Outcome: Progressing Problem: Nutritional: Goal: Dietary intake will improve Outcome: Progressing Goal: Ability to maintain a balanced intake and output will improve Outcome: Progressing Problem: Skin Integrity: Goal: Risk for impaired skin integrity will decrease Outcome: Progressing Goal: Ability to demonstrate warm and dry skin will improve Outcome: Progressing Goal: Circulation will improve to fullest extent possible Outcome: Progressing Problem: Lack of Knowledge: Goal: Ability to develop a pain control plan will improve Outcome: Progressing Goal: Ability to identify pain intensity on a pain scale and rate it consistently will improve Outcome: Progressing Goal: Ability to notify healthcare provider of pain before it becomes unmanageable or unbearable will improve Outcome: Progressing Problem: Lack of Knowledge Goal: Knowledge of disease or condition will improve Outcome: Progressing Problem: Lack of Knowledge: Goal: Ability to state ways to decrease the risk of falls will improve Outcome: Progressing Problem: Safety: Goal: Will remain free from falls Outcome: Progressing Goal: Will remain free from injury from falls Outcome: Progressing Goal: Will remain free from falls and injury in home environment Outcome: Progressing * Plan of Care - Graham Salmeron, RN - 03/24/2023 1:26 PM CDT Per Medical Chart/Rounds/IDR: Patient is medically ready for discharge per primary team. Plan for discharge to home with home health services 03/25. ADD: 03/25/23 Plan & referrals made/in place: Current referrals include: [facility] with [facility] Home Health (P: [phone]) Support following discharge: Friends and [facility] Transportation: [employer] (P: [phone] Trip: [id number] Time: 11:30 AM on 03/25). Patient's neighbor Kemal will allow EMS crew into home. With permission from patient, CYNTHIA spoke to Kemal (P: [phone]) who states that he will be available tomorrow to let the EMS crew into the home. CYNTHIA provided [facility] with contact information for Kemal. F/U Appointments: 04/01/23 at 10:40 am per [facility] Coordinator Patient's Identified Problem/Goal Problem: Ensure acute medical needs are met and that patient has a safe discharge plan. Goal: Secure a discharge plan that patient/family are agreeable with and ensure patient has continuum of care. Patient and/or family are agreeable with plan. Case Management will continue to follow and assist with discharge planning as needed. Please see the [facility] Treatment Team for the patient's assigned Note Teller. * Plan of Care - Tom Diane LCSW - 03/24/2023 12:47 PM CDT DIPIKA contacted to speak to this patient about [place] apron worker services. DIPIKA provided with written information about the program and the closest state office near his home- in [place], [place]. Sw also spoke briefly to the patient about this program. He appeared alert and oriented and asked good questions about the application process. He said he understands and is likely to go there in person said he is eager to return home - (perhaps as soon as tomorrow) and is also hoping that staff will be able to provide him with a shirt or jacket for that trip (says he has pants at bedside)Sw will search for clothes. Sw to follow for other resources as requested Tom Diane LCSW * Plan of Care - Eric Wolf, RN - 03/24/2023 10:28 AM CDT [facility] Home Health consult received for SN/ Wound Care services. [facility] Home Care agency accepted patientwith projected start of care 03/27/2023 with completed referral and discharge. Graham MARIE, notified. * Plan of Care - Fannie Celaya - 03/24/2023 9:57 AM CDT CRC scheduled follow up appointment for patient with PCP. Information is on AVS & below: [facility]: [facility] Date of Appt: 04.01.2023 Time of Appt: 10:40 AM Provider: Bertram Celaya [facility] [employer] [phone] * Consults, Subsequent - Mack Frazier MD PhD - 03/24/2023 9:43 AM CDT Endocrinology & Diabetes Progress Note Patient: Rene Hyatt, 42 y.o. male (: 1980) Room: [place] [address] [address] ( ) LOS: 18 Rene Hyatt is a 42 y.o. male with PMH significant for non healing foot wounds, who presentedto OSH for scrotal pain and swelling for 2 weeks prior. He was admitted with DKA. He is s/p wound debridement of perianal abscess (Jamil 03/12/23). The Endocrinology/Diabetes Service is providing diabetes management/discharge planning recommendations during this hospitalization. Interval Events & Subjective Glycemic control remains at target. BG range: 148-193 over past 24 hrs with fasting morning BG 168 mg/dl 03/24/2023 TDD insulin/24 hrs = 61 units (Lantus 20 + Lispro 41) Steroids: none No acute events overnight, CV and respiratory status stable. No GI symptoms, no swelling, no other complaints. Nutritional Status: Eating meals (predictably) - 100% tray Diet: Adult Diet Restricted; Consistent Carbohydrate Recent Labs Lab Units 03/24/23 0838 03/23/23 2035 03/23/23 1714 03/23/23 1223 03/23/23 0902 03/22/23 2301 03/22/23 2013 03/22/23 1704 03/22/23 1409 03/22/23 0813 GLUCOSE mg/dL -- -- -- -- -- 191 -- -- -- -- POC GLUCOSE MONITOR mg/dL 168 159 148 178 193 -- 145 187 180 175 Interval Review of Systems Twelve point ROS reviewed and negative except as noted in HPI. All other systems negative. Vitals & Exam Temp: [36.5 ??C (97.7 ??F)-36.9 ??C (98.5 ??F)] 36.9 ??C (98.5 ??F) Pulse: [88] 88 BP: (125-132)/(72-80) 125/72 Resp: [16-18] 16 SpO2: [95 %-97 %] 95 % I/O this shift: In: - Out: 30 [Drains:30] Physical Exam Physical Exam Gen : no acute distress, alert, appropriate, cooperative, appears stated age, well-developed, well-nourished, obese, sitting up in bed in chair position HENT : normocephalic, atraumatic Eyes : conjunctiva clear, no proptosis/exophthalmos/lid lag Pulm : non-labored, on room air Extr : atraumatic, L foot wrapped Skin : warm,dry Neuro : alert, speech fluent, comprehension intact Psych : cooperative, flat affect, sad mood, good insight & judgment Data Medications, labs, imaging, and diagnostics independently reviewed in Epic and commented on below. No results found for: TSH , T3FREE , FREET4 , TSI , THYROGLOBULI , THGAB Lab Results Component Value Date CHOL 106 03/06/2023 TRIG 93 03/06/2023 HDL 20 (L) 03/06/2023 LDLCALC 67 03/06/2023 Lab Results Component Value Date PTH 12 (L) 03/09/2023 25HYDROVITD <6 (L) 03/08/2023 CPEPTIDE 2.24 03/08/2023 VCQ13RY 0.31 (H) 03/09/2023 Lab Results Component Value Date HGBA1C 13.3 (H) 03/06/2023 Assessment & Plan # Type 2 Diabetes Mellitus?, Uncontrolled, complicated by DKA-resolved Current HbA1c and reliability:13.3% on 03/06/23 Diabetes Provider: none Insurance: None Home regimen:none He has residual insulin secretion with Cpeptide of 1.84 with BG 142 [place]TON Ab 0.33 although TDD = 60 units Patient's inpatient glycemic control is complicated by variable PO intake. He has had adequate BG control while admitted. He is uninsured which complicates regimen. Would recommend ryan checking insulins and if needed we can change regimen for cost. Primary team is working on this but he does not have money with him and wants medicines sent to other pharmacy. Recommendations: Basal Insulin: - glargine 20 units qHS Mealtime/Bolus Insulin: - lispro 12 units TID AC Correctional/Sliding-Scale Insulin: - resistant correctional lispro TID AC, HS - If NPO, hold meal time and switch to q4h Insulin resistant sliding scale - POC glucoses TID AC, HS, 2AM when eating - Consistent carb diet when eating; no juices, no regular soda [X] please consult the diabetes nurse educator to meet with him (seen on 03/13 by Modesta) - When NPO, continue glargine, hold mealtime lispro, change correctional (sliding scale) lispro andPOC glucoses to Q4hr - Consider D5/0.45NS 100 mls/hr or D10 50 ml/hr if prolonged NPO (>12hrs) # HLD: - His diabetes and elevated cholesterol are indications for statin therapy. - atorvastatin 20 mg nightly # HTN: - ACEi/ARB use in persons with both type 1 and type 2 diabetes can prevent the progression of renaldisease. #Hypocalcemia -resolved #Vit D def - Ca 8.0. albumin 2 days ago was low at 2.1, corrected Ca is 9.1. Recommend repeating ionized Ca, BMP and albumin - vitamin D undetectable - Continue 50,000IU increase to twice weekly x2 months; then transition to maintenance dose of 2000-5,000 IU daily. ## Discharge Planning Use ???Adult END Diabetes Discharge?? Order Set Discharge regimen = Glargine 20 units qHS + Lispro 10 units TID AC + Metformin 500 mg PO BID + Trulicity 0.75 mg SC q weekly (although may be cost-prohibitive with insurance coverage) - If the patient would like to be seen in the Diabetes Center, we will request an outpatient appointment. (Diabetes Center Scheduling: ) Today, I am treating the patient for type 2 diabetes which is in moderate exacerbation, progression, or experiencing treatment side effects as evidenced by hyperglycemia as described in the note.. We have reviewed the following test results: serum glucose levels, POC glucose levels, and renal function. -- Mack Frazier MD PhD Endocrinology, Metabolism, & Lipid Research [phone] Contact Info: New Consults: [phone]) General Endocrine (Non-Diabetes): [phone] (Check 'Treatment Team' assignment for Diabetes 1 vs 2 vs 3) Diabetes After-Hours & Weekends: Diabetes Fellow [phone] or [phone] * Plan of Care - Annamarie Giron RN - 03/24/2023 6:04 AM CDT Goals: Maintain comfort and safety, pain management ,monitor BG * Plan of Care - Marina Washington RN - 03/23/2023 5:30 PM CDT Goals: Clinical Goals for the Shift: monitor VS, assist in ambulation, pain management, wound care, maintain comfort and safety Summary: Problem: Health Behavior: Goal: Understanding of discharge needs will improve Outcome: Progressing Problem: Activity: Goal: Mobility will improve Outcome: Progressing Problem: Lack of Knowledge: Goal: Understanding of ways to prevent future skin breakdown will improve Outcome: Progressing Goal: Ability to identify appropriate dietary choices will improve Outcome: Progressing Problem: Nutritional: Goal: Dietary intake will improve Outcome: Progressing Goal: Ability to maintain a balanced intake and output will improve Outcome: Progressing Problem: Skin Integrity: Goal: Risk for impaired skin integrity will decrease Outcome: Progressing Goal: Ability to demonstrate warm and dry skin will improve Outcome: Progressing Goal: Circulation will improve to fullest extent possible Outcome: Progressing Problem: Lack of Knowledge: Goal: Ability to develop a pain control plan will improve Outcome: Progressing Goal: Ability to identify pain intensity on a pain scale and rate it consistently will improve Outcome: Progressing Goal: Ability to notify healthcare provider of pain before it becomes unmanageable or unbearable will improve Outcome: Progressing Problem: Lack of Knowledge Goal: Knowledge of disease or condition will improve Outcome: Progressing Problem: Lack of Knowledge: Goal: Ability to state ways to decrease the risk of falls will improve Outcome: Progressing Problem: Safety: Goal: Will remain free from falls Outcome: Progressing Goal: Will remain free from injury from falls Outcome: Progressing Goal: Will remain free from falls and injury in home environment Outcome: Progressing * Plan of Care - Eric Wolf, RN - 03/23/2023 3:27 PM CDT [facility] is unable to staff patient without an established PCP. Anabel MARIE., notified. CYNTHIA to outsource for home health services. * Consults, Subsequent - Mack Frazier MD PhD - 03/23/2023 9:53 AM CDT Endocrinology & Diabetes Progress Note Patient: Rene Hyatt, 42 y.o. male (: 1980) Room: [place] [address] [address] ( ) LOS: 17 Rene Hyatt is a 42 y.o. male with PMH significant for non healing foot wounds, who presentedto OSH for scrotal pain and swelling for 2 weeks prior. He was admitted with DKA. He is s/p wound debridement of perianal abscess (Jamil 03/12/23). The Endocrinology/Diabetes Service is providing diabetes management/discharge planning recommendations during this hospitalization. Interval Events & Subjective Glycemic control remains at target. BG range: 131-193 over past 24 hrs with fasting morning BG 193 mg/dl 03/23/2023 TDD insulin/24 hrs = 62 units (Lantus 20 + Lispro 42) Steroids: none No acute events overnight, CV and respiratory status stable. No GI symptoms, no swelling, no other complaints. Nutritional Status: Eating meals (predictably) - 100% tray Diet: Adult Diet Restricted; Consistent Carbohydrate Recent Labs Lab Units 03/23/23 0902 03/22/23 2301 03/22/23 2013 03/22/23 1704 03/22/23 1409 03/22/23 0813 03/21/23 2243 03/21/23 2050 03/21/23 1740 03/21/23 1203 GLUCOSE mg/dL -- 191 -- -- -- -- 158 -- -- -- POC GLUCOSE MONITOR mg/dL 193 -- 145 187 180 175 -- 166 197 131 Interval Review of Systems Twelve point ROS reviewed and negative except as noted in HPI. All other systems negative. Vitals & Exam Temp: [36.6 ??C (97.9 ??F)] 36.6 ??C (97.9 ??F) Pulse: [87-92] 92 BP: (132-136)/(73-86) 132/86 Resp: [18] 18 SpO2: [95 %-96 %] 96 % No intake/output data recorded. Physical Exam Physical Exam Gen : no acute distress, alert, appropriate, cooperative, appears stated age, well-developed, well-nourished, obese, sitting up in bed in chair position HENT : normocephalic, atraumatic Eyes : conjunctiva clear, no proptosis/exophthalmos/lid lag Pulm : non-labored, on room air Extr : atraumatic, L foot wrapped Skin : warm,dry Neuro : alert, speech fluent, comprehension intact Psych : cooperative, flat affect, sad mood, good insight & judgment Data Medications, labs, imaging, and diagnostics independently reviewed in Epic and commented on below. No results found for: TSH , T3FREE , FREET4 , TSI , THYROGLOBULI , THGAB Lab Results Component Value Date CHOL 106 03/06/2023 TRIG 93 03/06/2023 HDL 20 (L) 03/06/2023 LDLCALC 67 03/06/2023 Lab Results Component Value Date PTH 12 (L) 03/09/2023 25HYDROVITD <6 (L) 03/08/2023 CPEPTIDE 2.24 03/08/2023 GSH71KD 0.31 (H) 03/09/2023 Lab Results Component Value Date HGBA1C 13.3 (H) 03/06/2023 Assessment & Plan # Type 2 Diabetes Mellitus?, Uncontrolled, complicated by DKA-resolved Current HbA1c and reliability:13.3% on 03/06/23 Diabetes Provider: none Insurance: None Home regimen:none He has residual insulin secretion with Cpeptide of 1.84 with BG 142 [place] Ab 0.33 although TDD = 60 units Patient's inpatient glycemic control is complicated by variable PO intake. He has had adequate BG control while admitted. He is uninsured which complicates regimen. Would recommend ryan checking insulins and if needed we can change regimen for cost. Primary team is working on this but he does not have money with him and wants medicines sent to other pharmacy. Recommendations: Basal Insulin: - glargine 20 units qHS Mealtime/Bolus Insulin: - lispro 12 units TID AC Correctional/Sliding-Scale Insulin: - resistant correctional lispro TID AC, HS - If NPO, hold meal time and switch to q4h Insulin resistant sliding scale - POC glucoses TID AC, HS, 2AM when eating - Consistent carb diet when eating; no juices, no regular soda [X] please consult the diabetes nurse educator to meet with him (seen on 03/13 by Modesta) - When NPO, continue glargine, hold mealtime lispro, change correctional (sliding scale) lispro andPOC glucoses to Q4hr - Consider D5/0.45NS 100 mls/hr or D10 50 ml/hr if prolonged NPO (>12hrs) # HLD: - His diabetes and elevated cholesterol are indications for statin therapy. - atorvastatin 20 mg nightly # HTN: - ACEi/ARB use in persons with both type 1 and type 2 diabetes can prevent the progression of renaldisease. #Hypocalcemia -resolved #Vit D def - Ca 8.0. albumin 2 days ago was low at 2.1, corrected Ca is 9.1. Recommend repeating ionized Ca, BMP and albumin - vitamin D undetectable - Continue 50,000IU increase to twice weekly x2 months; then transition to maintenance dose of 2000-5,000 IU daily. ## Discharge Planning Use ???Adult END Diabetes Discharge?? Order Set Discharge regimen TBD; likely to require basal-bolus insulin + Metformin +/- GLP-1 agonist (although likely cost-prohibitive without insurance coverage) Glargine (or other basal insulin) 20 units + Lispro 10 units TID AC + Metformin 500 mg PO BID + GLP1 agonist - If the patient would like to be seen in the Diabetes Center, we will request an outpatient appointment. (Diabetes Center Scheduling: ) Today, I am treating the patient for type 2 diabetes which is in moderate exacerbation, progression, or experiencing treatment side effects as evidenced by hyperglycemia as described in the note.. We have reviewed the following test results: serum glucose levels, POC glucose levels, and renal function. -- Mack Frazier MD PhD Endocrinology, Metabolism, & Lipid Research [phone] Contact Info: New Consults: [phone]) General Endocrine (Non-Diabetes): [phone] (Check 'Treatment Team' assignment for Diabetes 1 vs 2 vs 3) Diabetes After-Hours & Weekends: Diabetes Fellow [phone] or [phone] * Plan of Care - Marcos Link RN - 03/22/2023 9:23 PM CDT Goals: Clinical Goals for the Shift: Receive abx Problem: Health Behavior: Goal: Understanding of discharge needs will improve Outcome: Progressing Problem: Activity: Goal: Mobility will improve Outcome: Progressing Problem: Lack of Knowledge: Goal: Understanding of ways to prevent future skin breakdown will improve Outcome: Progressing Goal: Ability to identify appropriate dietary choices will improve Outcome: Progressing Problem: Nutritional: Goal: Dietary intake will improve Outcome: Progressing Goal: Ability to maintain a balanced intake and output will improve Outcome: Progressing Problem: Skin Integrity: Goal: Risk for impaired skin integrity will decrease Outcome: Progressing Goal: Ability to demonstrate warm and dry skin will improve Outcome: Progressing Goal: Circulation will improve to fullest extent possible Outcome: Progressing Problem: Lack of Knowledge: Goal: Ability to develop a pain control plan will improve Outcome: Progressing Goal: Ability to identify pain intensity on a pain scale and rate it consistently will improve Outcome: Progressing Goal: Ability to notify healthcare provider of pain before it becomes unmanageable or unbearable will improve Outcome: Progressing Problem: Lack of Knowledge Goal: Knowledge of disease or condition will improve Outcome: Progressing Problem: Lack of Knowledge: Goal: Ability to state ways to decrease the risk of falls will improve Outcome: Progressing Problem: Safety: Goal: Will remain free from falls Outcome: Progressing Goal: Will remain free from injury from falls Outcome: Progressing Goal: Will remain free from falls and injury in home environment Outcome: Progressing * Plan of Care - Luz Elena Gentile RN - 03/22/2023 1:43 PM CDT Goals: Clinical Goals for the Shift: Receive abx Summary: Problem: Health Behavior: Goal: Understanding of discharge needs will improve Outcome: Progressing Problem: Activity: Goal: Mobility will improve Outcome: Progressing Problem: Lack of Knowledge: Goal: Understanding of ways to prevent future skin breakdown will improve Outcome: Progressing Goal: Ability to identify appropriate dietary choices will improve Outcome: Progressing Problem: Nutritional: Goal: Dietary intake will improve Outcome: Progressing Goal: Ability to maintain a balanced intake and output will improve Outcome: Progressing Problem: Skin Integrity: Goal: Risk for impaired skin integrity will decrease Outcome: Progressing Goal: Ability to demonstrate warm and dry skin will improve Outcome: Progressing Goal: Circulation will improve to fullest extent possible Outcome: Progressing Problem: Lack of Knowledge: Goal: Ability to develop a pain control plan will improve Outcome: Progressing Goal: Ability to identify pain intensity on a pain scale and rate it consistently will improve Outcome: Progressing Goal: Ability to notify healthcare provider of pain before it becomes unmanageable or unbearable will improve Outcome: Progressing Problem: Lack of Knowledge Goal: Knowledge of disease or condition will improve Outcome: Progressing Problem: Lack of Knowledge: Goal: Ability to state ways to decrease the risk of falls will improve Outcome: Progressing Problem: Safety: Goal: Will remain free from falls Outcome: Progressing Goal: Will remain free from injury from falls Outcome: Progressing Goal: Will remain free from falls and injury in home environment Outcome: Progressing * Plan of Care - Marcos Link RN - 03/21/2023 9:28 PM CDT Goals: Clinical Goals for the Shift: Up to chair today and trail void after Min removed at noon Problem: Health Behavior: Goal: Understanding of discharge needs will improve Outcome: Progressing Problem: Activity: Goal: Mobility will improve Outcome: Progressing Problem: Lack of Knowledge: Goal: Understanding of ways to prevent future skin breakdown will improve Outcome: Progressing Goal: Ability to identify appropriate dietary choices will improve Outcome: Progressing Problem: Nutritional: Goal: Dietary intake will improve Outcome: Progressing Goal: Ability to maintain a balanced intake and output will improve Outcome: Progressing Problem: Skin Integrity: Goal: Risk for impaired skin integrity will decrease Outcome: Progressing Goal: Ability to demonstrate warm and dry skin will improve Outcome: Progressing Goal: Circulation will improve to fullest extent possible Outcome: Progressing Problem: Lack of Knowledge: Goal: Ability to develop a pain control plan will improve Outcome: Progressing Goal: Ability to identify pain intensity on a pain scale and rate it consistently will improve Outcome: Progressing Goal: Ability to notify healthcare provider of pain before it becomes unmanageable or unbearable will improve Outcome: Progressing Problem: Lack of Knowledge Goal: Knowledge of disease or condition will improve Outcome: Progressing Problem: Lack of Knowledge: Goal: Ability to state ways to decrease the risk of falls will improve Outcome: Progressing Problem: Safety: Goal: Will remain free from falls Outcome: Progressing Goal: Will remain free from injury from falls Outcome: Progressing Goal: Will remain free from falls and injury in home environment Outcome: Progressing * Plan of Care - Sabrina Coronado RN - 03/21/2023 6:35 AM CDT Pt c/o pain to scrotum. Oxycodone given once with relief. Denies N/V, SOB, CP. VSS. * Plan of Care - Deepti Cardenas RN - 03/20/2023 1:32 PM CDT Goals: Clinical Goals for the Shift: Monitor vital signs, promote comfort, monitor wound drainage Summary: Problem: Health Behavior: Goal: Understanding of discharge needs will improve Outcome: Progressing Problem: Activity: Goal: Mobility will improve Outcome: Progressing Problem: Lack of Knowledge: Goal: Understanding of ways to prevent future skin breakdown will improve Outcome: Progressing Problem: Lack of Knowledge: Goal: Understanding of ways to prevent future skin breakdown will improve Outcome: Progressing Problem: Lack of Knowledge: Goal: Understanding of ways to prevent future skin breakdown will improve Outcome: Progressing Goal: Ability to identify appropriate dietary choices will improve Outcome: Progressing Problem: Nutritional: Goal: Dietary intake will improve Outcome: Progressing Goal: Ability to maintain a balanced intake and output will improve Outcome: Progressing Problem: Skin Integrity: Goal: Risk for impaired skin integrity will decrease Outcome: Progressing Goal: Ability to demonstrate warm and dry skin will improve Outcome: Progressing Goal: Circulation will improve to fullest extent possible Outcome: Progressing Problem: Lack of Knowledge: Goal: Ability to develop a pain control plan will improve Outcome: Progressing Goal: Ability to identify pain intensity on a pain scale and rate it consistently will improve Outcome: Progressing Goal: Ability to notify healthcare provider of pain before it becomes unmanageable or unbearable will improve Outcome: Progressing Problem: Lack of Knowledge Goal: Knowledge of disease or condition will improve Outcome: Progressing Problem: Lack of Knowledge: Goal: Ability to state ways to decrease the risk of falls will improve Outcome: Progressing Problem: Safety: Goal: Will remain free from falls Outcome: Progressing Goal: Will remain free from injury from falls Outcome: Progressing Goal: Will remain free from falls and injury in home environment Outcome: Progressing * Consults, Subsequent - Samantha Field MD - 03/20/2023 9:00 AM CDT Endocrinology & Diabetes Progress Note Patient: Rene Hyatt, 42 y.o. male (: 1980) Room: [place] [address] [address] ( ) LOS: 14 Rene Hyatt is a 42 y.o. male with PMH significant for non healing foot wounds, who presentedto OSH for scrotal pain and swelling for 2 weeks prior. He was admitted with DKA. He is s/p wound debridement of perianal abscess (Negron 03/12/23). The Endocrinology/Diabetes Service is providing diabetes management/discharge planning recommendations during this hospitalization. Interval Events & Subjective There were no acute events overnight. Denies nausea/vomiting. Appetite is okay. Diet: Adult Diet Restricted; Consistent Carbohydrate Over the previous 24 hours, blood glucose near target with range of 131-191 mg/dl with 60 units TDDinsulin coverage. Target inpatient blood glucose is 100- 180 mg/dl. Fasting blood glucose this morning was 176 mg/dl. Recent Labs Lab Units 03/20/23 0823 03/19/23 2114 03/19/23 1800 03/19/23 1406 03/19/23 0829 03/18/23 2207 03/18/23 2159 03/18/23 1811 03/18/23 1317 03/18/23 0832 GLUCOSE mg/dL -- -- -- -- -- 138 -- -- -- -- POC GLUCOSE MONITOR mg/dL 176 149 159 148 168 -- 131 142 191 156 Interval Review of Systems Twelve point ROS reviewed and negative except as noted in HPI. All other systems negative. Vitals & Exam Temp: [36.6 ??C (97.9 ??F)-36.7 ??C (98.1 ??F)] 36.6 ??C (97.9 ??F) Pulse: [84-88] 88 BP: (121-150)/(62-73) 150/73 Resp: [16-18] 16 I/O this shift: In: 100 [IV Piggyback:100] Out: - Physical Exam Physical Exam Gen : no acute distress, alert, appropriate, cooperative, appears stated age, well-developed, well-nourished, obese, sitting up in bed in chair position HENT : normocephalic, atraumatic Eyes : conjunctiva clear, no proptosis/exophthalmos/lid lag Pulm : non-labored, on room air Extr : atraumatic, L foot wrapped Skin : warm,dry Neuro : alert, speech fluent, comprehension intact Psych : cooperative, flat affect, sad mood, good insight & judgment Data Medications, labs, imaging, and diagnostics independently reviewed in Epic and commented on below. No results found for: TSH , T3FREE , FREET4 , TSI , THYROGLOBULI , THGAB Lab Results Component Value Date CHOL 106 03/06/2023 TRIG 93 03/06/2023 HDL 20 (L) 03/06/2023 LDLCALC 67 03/06/2023 Lab Results Component Value Date PTH 12 (L) 03/09/2023 25HYDROVITD <6 (L) 03/08/2023 CPEPTIDE 2.24 03/08/2023 [id number] 0.31 (H) 03/09/2023 Lab Results Component Value Date HGBA1C 13.3 (H) 03/06/2023 Assessment & Plan # Type 2 Diabetes Mellitus?, Uncontrolled, complicated by DKA-resolved Current HbA1c and reliability:13.3% on 03/06/23 Diabetes Provider: none Insurance: None Home regimen:none He has residual insulin secretion with Cpeptide of 1.84 with BG 142 [place] Ab 0.33 Patient's inpatient glycemic control is complicated by variable PO intake. He has had adequate BG control while admitted. He is uninsured which complicates regimen. Would recommend ryan checking insulins and if needed we can change regimen for cost. Primary team is working on this but he does not have money with him and wants medicines sent to other pharmacy. Recommendations: Basal Insulin: - glargine 20 units qHS Mealtime/Bolus Insulin: - lispro 12 units TID AC Correctional/Sliding-Scale Insulin: - resistant correctional lispro TID AC, HS - If NPO, hold meal time and switch to q4h Insulin resistant sliding scale - POC glucoses TID AC, HS, 2AM when eating - Consistent carb diet when eating; no juices, no regular soda [X] please consult the diabetes nurse educator to meet with him (seen on 03/13 by Modesta) - When NPO, continue glargine, hold mealtime lispro, change correctional (sliding scale) lispro andPOC glucoses to Q4hr - Consider D5/0.45NS 100 mls/hr or D10 50 ml/hr if prolonged NPO (>12hrs) # HLD: - His diabetes and elevated cholesterol are indications for statin therapy. - atorvastatin 20 mg nightly # HTN: - ACEi/ARB use in persons with both type 1 and type 2 diabetes can prevent the progression of renaldisease. #Hypocalcemia -resolved #Vit D def - Ca 8.0. albumin 2 days ago was low at 2.1, corrected Ca is 9.1. Recommend repeating ionized Ca, BMP and albumin - vitamin D undetectable - Would recommend starting [id number] increase to twice weekly x2 months. Would also maintenance dose of 2000IU daily. ## Discharge Planning Use ???Adult END Diabetes Discharge?? Order Set Glargine (or other basal insulin) + GLP1 agonist if affordable + metformin 500mg BID - If the patient would like to be seen in the Diabetes Center, we will request an outpatient appointment. (Diabetes Center Scheduling: ) Today, I am treating the patient for type 2 diabetes which is in moderate exacerbation, progression, or experiencing treatment side effects as evidenced by hyperglycemia as described in the note.. We have reviewed the following test results: serum glucose levels, POC glucose levels, and renal function. -- Samantha Field MD Endocrinology, Metabolism, & Lipid Research [phone] Contact Info: New Consults: [phone]) General Endocrine (Non-Diabetes): [phone] (Check 'Treatment Team' assignment for Diabetes 1 vs 2 vs 3) Diabetes After-Hours & Weekends: Diabetes Fellow [phone] or [phone] * Plan of Care - Elysia Clarke RN - 03/19/2023 3:38 PM CDT Problem: Health Behavior: Goal: Understanding of discharge needs will improve Outcome: Progressing Problem: Activity: Goal: Mobility will improve Outcome: Progressing Problem: Lack of Knowledge: Goal: Understanding of ways to prevent future skin breakdown will improve Outcome: Progressing Goal: Ability to identify appropriate dietary choices will improve Outcome: Progressing Goals: Clinical Goals for the Shift: Vs, pain management * Consults, Subsequent - Margarita Hodge NP - 03/19/2023 7:15 AM CDT Endocrinology & Diabetes Progress Note Patient: Rene Hyatt, 42 y.o. male (: 1980) Room: [place] [address]/[place] [address] ( ) LOS: 13 Rene Hyatt is a 42 y.o. male with PMH significant for non healing foot wounds, who presentedto OSH for scrotal pain and swelling for 2 weeks prior. He was admitted with DKA. He is s/p wound debridement of perianal abscess (Jamil 03/12/23). The Endocrinology/Diabetes Service is providing diabetes management/discharge planning recommendations during this hospitalization. Interval Events & Subjective There were no acute events overnight. Patient is sitting in upright chair position in bed. States he is uncomfortable. He is feeling frustrated with his insurance situation. Denies nausea/vomiting. Appetite is okay. States he had 12 bowel movements last night. Diet: Adult Diet Restricted; Consistent Carbohydrate Over the previous 24 hours, blood glucose near target with range of 131-191 mg/dl with 60 units TDDinsulin coverage. Target inpatient blood glucose is 100- 180 mg/dl. Fasting blood glucose this morning was 168 mg/dl. Recent Labs Lab Units 03/19/23 0829 03/18/23 2207 03/18/23 2159 03/18/23 1811 03/18/23 1317 03/18/23 0832 03/17/23 2210 03/17/23 2122 03/17/23 1824 03/17/23 1247 GLUCOSE mg/dL -- 138 -- -- -- -- 163 -- -- -- POC GLUCOSE MONITOR mg/dL 168 -- 131 142 191 156 -- 205* 166 142 Interval Review of Systems Twelve point ROS reviewed and negative except as noted in HPI. All other systems negative. Vitals & Exam Temp: [36.3 ??C (97.3 ??F)] 36.3 ??C (97.3 ??F) Pulse: [85-89] 87 BP: (129-150)/(73-84) 150/84 Resp: [16-17] 17 SpO2: [95 %-96 %] 95 % No intake/output data recorded. Physical Exam Physical Exam Gen : no acute distress, alert, appropriate, cooperative, appears stated age, well-developed, well-nourished, obese, sitting up in bed in chair position HENT : normocephalic, atraumatic Eyes : conjunctiva clear, no proptosis/exophthalmos/lid lag Pulm : non-labored, on room air Extr : atraumatic, L foot wrapped Skin : warm,dry Neuro : alert, speech fluent, comprehension intact Psych : cooperative, flat affect, sad mood, good insight & judgment Data Medications, labs, imaging, and diagnostics independently reviewed in Epic and commented on below. No results found for: TSH , T3FREE , FREET4 , TSI , THYROGLOBULI , THGAB Lab Results Component Value Date CHOL 106 03/06/2023 TRIG 93 03/06/2023 HDL 20 (L) 03/06/2023 LDLCALC 67 03/06/2023 Lab Results Component Value Date PTH 12 (L) 03/09/2023 25HYDROVITD <6 (L) 03/08/2023 CPEPTIDE 2.24 03/08/2023 [id number] 0.31 (H) 03/09/2023 Lab Results Component Value Date HGBA1C 13.3 (H) 03/06/2023 Assessment & Plan # Type 2 Diabetes Mellitus?, Uncontrolled, complicated by DKA-resolved Current HbA1c and reliability:13.3% on 03/06/23 Diabetes Provider: none Insurance: None Home regimen:none He has residual insulin secretion with Cpeptide of 1.84 with BG 142 [place] Ab 0.33 Patient's inpatient glycemic control is complicated by variable PO intake. He has had adequate BG control while admitted. He is uninsured which complicates regimen. Would recommend ryan checking insulins and if needed we can change regimen for cost. Primary team is working on this but he does not have money with him and wants medicines sent to other pharmacy. Recommendations: Basal Insulin: - glargine 20 units qHS Mealtime/Bolus Insulin: - lispro 12 units TID AC Correctional/Sliding-Scale Insulin: - resistant correctional lispro TID AC, HS - If NPO, hold meal time and switch to q4h Insulin resistant sliding scale - POC glucoses TID AC, HS, 2AM when eating - Consistent carb diet when eating; no juices, no regular soda [X] please consult the diabetes nurse educator to meet with him (seen on 03/13 by Modesta) - When NPO, continue glargine, hold mealtime lispro, change correctional (sliding scale) lispro andPOC glucoses to Q4hr - Consider D5/0.45NS 100 mls/hr or D10 50 ml/hr if prolonged NPO (>12hrs) # HLD: - His diabetes and elevated cholesterol are indications for statin therapy. - atorvastatin 20 mg nightly # HTN: - ACEi/ARB use in persons with both type 1 and type 2 diabetes can prevent the progression of renaldisease. #Hypocalcemia -resolved #Vit D def - Ca 8.0. albumin 2 days ago was low at 2.1, corrected Ca is 9.1. Recommend repeating ionized Ca, BMP and albumin - vitamin D undetectable - Would recommend starting [id number] increase to twice weekly x2 months. Would also maintenance dose of 2000IU daily. ## Discharge Planning Use ???Adult END Diabetes Discharge?? Order Set Glargine (or other basal insulin) + GLP1 agonist if affordable + metformin 500mg BID - If the patient would like to be seen in the Diabetes Center, we will request an outpatient appointment. (Diabetes Center Scheduling: ) -- Margarita Hodge NP Endocrinology, Metabolism, & Lipid Research Contact Info: New Consults: [phone]) General Endocrine (Non-Diabetes): [phone] (Check 'Treatment Team' assignment for Diabetes 1 vs 2 vs 3) Diabetes After-Hours & Weekends: Diabetes Fellow [phone] or [phone] * Plan of Care - Rachel Cosme RN - 03/19/2023 2:02 AM CDT Goals: Clinical Goals for the Shift: Monitor BG, VS Summary: Problem: Activity: Goal: Mobility will improve Outcome: Progressing Problem: Lack of Knowledge: Goal: Understanding of ways to prevent future skin breakdown will improve Outcome: Progressing Goal: Ability to identify appropriate dietary choices will improve Outcome: Progressing Problem: Nutritional: Goal: Dietary intake will improve Outcome: Progressing Problem: Skin Integrity: Goal: Risk for impaired skin integrity will decrease Outcome: Progressing Goal: Ability to demonstrate warm and dry skin will improve Outcome: Progressing Problem: Lack of Knowledge: Goal: Ability to develop a pain control plan will improve Outcome: Progressing Problem: Lack of Knowledge: Goal: Ability to state ways to decrease the risk of falls will improve Outcome: Progressing Problem: Safety: Goal: Will remain free from falls Outcome: Progressing Goal: Will remain free from injury from falls Outcome: Progressing * Plan of [place] - Rosibel Lyons LCSW - 03/18/2023 4:17 PM CDT At patient's request, SW contacted [facility] [address] [facility] [employer] ([phone] ext [phone]) regarding checking in on the cats at the home. DIPIKA was advised that in this case, PD would need to go to the home to check on them ([facility] does not have room for cats at this time). SW relayed this information to patient and provided non-emergency phone number for [facility] [place] [facility]. Patient reported that hedid not want to do anything without his mother's permission due to it being her home. SW was able to speak with patient's mother, Savannah, via her RN at [employer]. Savannah gave permission for SW/patient to contact PD and request a visit to the home. SW contacted [facility] non-emergency after hours line ([phone]) and requested non-urgent visit to the home to check on the cats. SW was connected with an Officer Marisa, who reported that a city inspector receiving and an officer had been at the home this morning and had spoken with patient's neighbor(Kemal Worrell @ [phone]). Kemal has been feeding the cats since patient's/Savannah's hospitalizations. Officer Marisa advised that patient/Savannah would be notified of the results from the [employer] inspection, either by the inspector receiving or by Patient Ombudsperson Phil. SW provided RN station phone number as a back up in case they could not reach patient via his cell phone. SW presented to bedside and informed patient (and Savannah, who was on the phone) of the above. Provided Kemal's phone number and encouraged patient to call Kemal. SW remains available for support. Rosibel Lyons LCSW * Plan of Care - Angelika Plasencia, ARYAN - 03/18/2023 1:15 PM CDT Goals: Clinical Goals for the Shift: Monitor BG, VS Summary: Problem: Health Behavior: Goal: Understanding of discharge needs will improve Outcome: Progressing Problem: Activity: Goal: Mobility will improve Outcome: Progressing Problem: Lack of Knowledge: Goal: Understanding of ways to prevent future skin breakdown will improve Outcome: Progressing Goal: Ability to identify appropriate dietary choices will improve Outcome: Progressing Problem: Nutritional: Goal: Dietary intake will improve Outcome: Progressing Goal: Ability to maintain a balanced intake and output will improve Outcome: Progressing Problem: Lack of Knowledge: Goal: Ability to develop a pain control plan will improve Outcome: Progressing Goal: Ability to identify pain intensity on a pain scale and rate it consistently will improve Outcome: Progressing Goal: Ability to notify healthcare provider of pain before it becomes unmanageable or unbearable will improve Outcome: Progressing Problem: Lack of Knowledge: Goal: Ability to state ways to decrease the risk of falls will improve Outcome: Progressing Problem: Safety: Goal: Will remain free from falls Outcome: Progressing Goal: Will remain free from injury from falls Outcome: Progressing Goal: Will remain free from falls and injury in home environment Outcome: Progressing * Consults, Subsequent - Margarita Hodge NP - 03/18/2023 11:18 AM CDT Endocrinology & Diabetes Progress Note Patient: Rene Hyatt, 42 y.o. male (: 1980) Room: [place] [address] ( ) LOS: 12 Rene Hyatt is a 42 y.o. male with PMH significant for non healing foot wounds, who presentedto OSH for scrotal pain and swelling for 2 weeks prior. He was admitted with DKA. He is s/p wound debridement of perianal abscess (Jamil 03/12/23). The Endocrinology/Diabetes Service is providing diabetes management/discharge planning recommendations during this hospitalization. Interval Events & Subjective There were no acute events overnight. Patient is currently asleep. Diet: Adult Diet Restricted; Consistent Carbohydrate Over the previous 24 hours, blood glucose close to target with range of 142-205 mg/dl with 62 unitsTDD insulin coverage. Target inpatient blood glucose is 100- 180 mg/dl. Fasting blood glucose this morning was 156 mg/dl. Recent Labs Lab Units 03/18/23 0832 03/17/23 2210 03/17/23 2122 03/17/23 1824 03/17/23 1247 03/17/23 0909 03/16/23 2056 03/16/23 2047 03/16/23 1821 03/16/23 1419 GLUCOSE mg/dL -- 163 -- -- -- -- 158 -- -- -- POC GLUCOSE MONITOR mg/dL 156 -- 205* 166 142 175 -- 167 166 162 Interval Review of Systems Twelve point ROS reviewed and negative except as noted in HPI. All other systems negative. Vitals & Exam Temp: [36.6 ??C (97.9 ??F)-37 ??C (98.6 ??F)] 37 ??C (98.6 ??F) Pulse: [78-87] 78 BP: (126-145)/(53-81) 126/53 Resp: [16] 16 SpO2: [94 %-96 %] 96 % No intake/output data recorded. Physical Exam Gen : asleep, appears stated age, well-developed, well-nourished HENT : normocephalic, atraumatic Eyes : conjunctiva clear, anicteric Pulm : non-labored, on room air Extr : L foot wrapped Skin : turgor normal Neuro : asleep Data Medications, labs, imaging, and diagnostics independently reviewed in Epic and commented on below. No results found for: TSH , T3FREE , FREET4 , TSI , THYROGLOBULI , THGAB Lab Results Component Value Date CHOL 106 03/06/2023 TRIG 93 03/06/2023 HDL 20 (L) 03/06/2023 LDLCALC 67 03/06/2023 Lab Results Component Value Date PTH 12 (L) 03/09/2023 25HYDROVITD <6 (L) 03/08/2023 CPEPTIDE 2.24 03/08/2023 [id number] 0.31 (H) 03/09/2023 Lab Results Component Value Date HGBA1C 13.3 (H) 03/06/2023 Assessment & Plan # Type 2 Diabetes Mellitus?, Uncontrolled, complicated by DKA-resolved Current HbA1c and reliability:13.3% on 03/06/23 Diabetes Provider: none Insurance: None Home regimen:none He has residual insulin secretion with Cpeptide of 1.84 with BG 142 [place] Ab 0.33 Patient's inpatient glycemic control is complicated by variable PO intake. He has had adequate BG control while admitted. He is uninsured which complicates regimen. Would recommend ryan checking insulins and if needed we can change regimen for cost. Primary team is working on this but he does not have money with him and wants medicines sent to other pharmacy. Recommendations: Basal Insulin: - glargine 20 units qPM Mealtime/Bolus Insulin: - lispro 12 units TID AC Correctional/Sliding-Scale Insulin: - resistant correctional lispro TID AC, HS - If NPO, hold meal time and switch to q4h Insulin resistant sliding scale - POC glucoses TID AC, HS, 2AM when eating - Consistent carb diet when eating; no juices, no regular soda [X] please consult the diabetes nurse educator to meet with him (seen on 03/13 by Modesta) - When NPO, continue glargine, hold mealtime lispro, change correctional (sliding scale) lispro andPOC glucoses to Q4hr - Consider D5/0.45NS 100 mls/hr or D10 50 ml/hr if prolonged NPO (>12hrs) # HLD: - His diabetes and elevated cholesterol are indications for statin therapy. - atorvastatin 20 mg nightly # HTN: - ACEi/ARB use in persons with both type 1 and type 2 diabetes can prevent the progression of renaldisease. #Hypocalcemia -resolved #Vit D def - Ca 8.0. albumin 2 days ago was low at 2.1, corrected Ca is 9.1. Recommend repeating ionized Ca, BMP and albumin - vitamin D undetectable - Would recommend starting [id number] increase to twice weekly x2 months. Would also maintenance dose of 2000IU daily. ## Discharge Planning Use ???Adult END Diabetes Discharge?? Order Set Glargine (or other basal insulin) + GLP1 agonist if affordable + metformin 500mg BID - If the patient would like to be seen in the Diabetes Center, we will request an outpatient appointment. (Diabetes Center Scheduling: ) -- Margarita Hodge NP Endocrinology, Metabolism, & Lipid Research Contact Info: New Consults: [phone]) General Endocrine (Non-Diabetes): [phone] (Check 'Treatment Team' assignment for Diabetes 1 vs 2 vs 3) Diabetes After-Hours & Weekends: Diabetes Fellow [phone] or [phone] * Plan of Care - Nan Tamayo RN - 03/17/2023 12:31 PM CDT Goals: Clinical Goals for the Shift: BG control, maintain comfort and safety Summary: Problem: Health Behavior: Goal: Understanding of discharge needs will improve Outcome: Progressing Problem: Activity: Goal: Mobility will improve Outcome: Progressing Problem: Lack of Knowledge: Goal: Understanding of ways to prevent future skin breakdown will improve Outcome: Progressing Goal: Ability to identify appropriate dietary choices will improve Outcome: Progressing Problem: Nutritional: Goal: Dietary intake will improve Outcome: Progressing Goal: Ability to maintain a balanced intake and output will improve Outcome: Progressing Problem: Skin Integrity: Goal: Risk for impaired skin integrity will decrease Outcome: Progressing Goal: Ability to demonstrate warm and dry skin will improve Outcome: Progressing Goal: Circulation will improve to fullest extent possible Outcome: Progressing Problem: Lack of Knowledge: Goal: Ability to develop a pain control plan will improve Outcome: Progressing Goal: Ability to identify pain intensity on a pain scale and rate it consistently will improve Outcome: Progressing Goal: Ability to notify healthcare provider of pain before it becomes unmanageable or unbearable will improve Outcome: Progressing Problem: Lack of Knowledge Goal: Knowledge of disease or condition will improve Outcome: Progressing Problem: Lack of Knowledge: Goal: Ability to state ways to decrease the risk of falls will improve Outcome: Progressing Problem: Safety: Goal: Will remain free from falls Outcome: Progressing Goal: Will remain free from injury from falls Outcome: Progressing Goal: Will remain free from falls and injury in home environment Outcome: Progressing * Plan of Care - Rosibel Lyons LCSW - 03/17/2023 9:19 AM CDT DIPIKA contacted [facility] ([phone]) and requested that staff provide patient's room phone number to patient's mother so that she can contact patient. Staff took the number and agreed to do so. DIPIKA checked [employer] report and noted that patient's case (for Medicaid application/approval) is pending with the processing agency. DIPIKA met with patient at bedside and relayed the above information. Patient expressed concern about his cats that are at the home and are likely not being fed/cared for (neighbor who was watching them may have been admitted to the hospital himself). Patient requested assistance. SW to assist as possible. Rosibel Lyons LCSW * Plan of Care - Rona Grant RN - 03/17/2023 6:06 AM CDT Goals: Clinical Goals for the Shift: Monitor VS/labs/BG, provide comfort and safety Problem: Health Behavior: Goal: Understanding of discharge needs will improve Outcome: Progressing Problem: Activity: Goal: Mobility will improve Outcome: Progressing Problem: Lack of Knowledge Goal: Knowledge of disease or condition will improve Outcome: Progressing Problem: Safety: Goal: Will remain free from falls Outcome: Progressing * Plan of Care - Nan Tamayo RN - 03/16/2023 5:12 PM CDT Goals: Clinical Goals for the Shift: wound care, BG control, maintain comfort and safety Summary: Problem: Health Behavior: Goal: Understanding of discharge needs will improve Outcome: Progressing Problem: Activity: Goal: Mobility will improve Outcome: Progressing Problem: Lack of Knowledge: Goal: Understanding of ways to prevent future skin breakdown will improve Outcome: Progressing Goal: Ability to identify appropriate dietary choices will improve Outcome: Progressing Problem: Nutritional: Goal: Dietary intake will improve Outcome: Progressing Goal: Ability to maintain a balanced intake and output will improve Outcome: Progressing Problem: Skin Integrity: Goal: Risk for impaired skin integrity will decrease Outcome: Progressing Goal: Ability to demonstrate warm and dry skin will improve Outcome: Progressing Goal: Circulation will improve to fullest extent possible Outcome: Progressing Problem: Lack of Knowledge: Goal: Ability to develop a pain control plan will improve Outcome: Progressing Goal: Ability to identify pain intensity on a pain scale and rate it consistently will improve Outcome: Progressing Goal: Ability to notify healthcare provider of pain before it becomes unmanageable or unbearable will improve Outcome: Progressing Problem: Lack of Knowledge Goal: Knowledge of disease or condition will improve Outcome: Progressing Problem: Lack of Knowledge: Goal: Ability to state ways to decrease the risk of falls will improve Outcome: Progressing Problem: Safety: Goal: Will remain free from falls Outcome: Progressing Goal: Will remain free from injury from falls Outcome: Progressing Goal: Will remain free from falls and injury in home environment Outcome: Progressing * Plan of Care - Mali Bobby RN - 03/16/2023 3:51 PM CDT Report per DCAM:Patient is not medically stable for discharge today per MD. Impression:Scrotal abscess-IV antibiotics, presently has drain in place. DM foot ulcer , new onset DM. CM will send updated therapy notes to [facility] when available, [facility] to review for possible Medicaid pending admission. Referrals:Acute Rehab Problem:Ensure acute medical needs are met and patient has a safe d/c plan. Support:family Transportation:TBD F/U appointment:Appointment to be addressed prior to discharge. ADD:03/23/2023 Goal/Plan: Collaboration with patient/family, clinical team to identify discharge needs to assure interventions completed for safe discharge and continuum of care, and that patient/family are agreeable with. Case Management will follow for planning and referrals as needed. If any further discharge needs arise please contact the covering case management manager. * Assessment & Plan Note - Luis Daniel Hanna NP - 03/16/2023 1:30 PM CDT Associated Problem(s): Adjustment disorder (Resolved 03/25/2023) PHQ-4 with likely depression, symptoms are new [...] mother is a major motivator for patient * Assessment & Plan Note - Luis Daniel Hanna NP - 03/16/2023 1:25 PM CDT Associated Problem(s): Hypertension Blood pressure modestly elevated. - elect DEBBI/ARB in DM (ACR 44) > start losartan 25 03/17 * Assessment & Plan Note - Luis Daniel Hanna NP - 03/16/2023 1:25 PM CDT Associated Problem(s): Class 3 obesity Complicates all aspects of care. - Perform STOP BANG > At least intermediate risk > Amb ref pulm vs sleep - Eval for bariatric surgery, GLP-RA would be appropriate * Consults, Domonique Giron MD - 03/16/2023 7:45 AM CDT Endocrinology & Diabetes BRIEF Progress Note Patient: Rene Hyatt, 42 y.o. male (: 1980) Room: [place] [address]/[id number] ( ) LOS: 10 Rene Hyatt is a 42 y.o. male with type 2 DM admitted with DKA and endocrine is consulted to help with DKA management. Interval Events & Subjective Chart reviewed, pt is using SSI with each meal, will increase scheduled meal time insulin. TDD: 58 units MILTON positive 0.33 Diet: Adult Diet Restricted; Consistent Carbohydrate Recent Labs Lab Units 03/15/23 2101 03/15/23 1938 03/15/23 1706 03/15/23 1214 03/15/23 0735 03/14/23 1952 03/14/23 1941 03/14/23 1744 03/14/23 1343 03/14/23 0838 GLUCOSE mg/dL -- 186 -- -- -- -- 137 -- -- -- POC GLUCOSE MONITOR mg/dL 147 -- 208* 176 194 130 -- 137 162 177 Vitals & Exam Temp: [36.8 ??C (98.3 ??F)] 36.8 ??C (98.3 ??F) Pulse: [83] 83 BP: (129)/(69) 129/69 Resp: [16] 16 SpO2: [92 %] 92 % No intake/output data recorded. Assessment & Plan # Type 2 Diabetes Mellitus?, Uncontrolled, complicated by DKA-resolved Current HbA1c and reliability:13.3 Diabetes Provider: none Insurance: None Home regimen:none S/p insulin drip until gap closed on 03/08/2023 He has residual insulin secretion with Cpeptide of 1.84 with BG 142 MILTON Ab 0.33 Patient's inpatient glycemic control is complicated by variable PO intake. He has had adequate BG control while admitted. He is uninsured which complicates regimen. Would recommend ryan checking insulins and if needed we can change regimen for cost. Primary team is working on this but he does not have money with him and wants medicines sent to other pharmacy. Recommendations: Basal Insulin: - glargine 20 units tonight. Mealtime/Bolus Insulin: - lispro 10 --> 12 units TID AC (order changed) Correctional/Sliding-Scale Insulin: - SSI correctional lispro TID AC, HS - If NPO, hold meal time and switch to q4h Insulin resistant sliding scale - POC glucoses TID AC, HS, 2AM when eating - Consistent carb diet when eating; no juices, no regular soda [ ] please consult the diabetes nurse educator to meet with him - When NPO, continue glargine, hold mealtime lispro, change correctional (sliding scale) lispro andPOC glucoses to Q4hr - Consider D5/0.45NS 100 mls/hr or D10 50 ml/hr if prolonged NPO (>12hrs) # HLD: - His diabetes and elevated cholesterol are indications for statin therapy. # HTN: - ACEi/ARB use in persons with both type 1 and type 2 diabetes can prevent the progression of renaldisease. #Hypocalcemia -resolved #Vit D def - Ca 8.0. albumin 2 days ago was low at 2.1, corrected Ca is 9.1. Recommend repeating ionized Ca, BMP and albumin - vitamin D undetectable - Would recommend starting [id number] increaes to twice weekly x2 months. Would also maintenance dose of 2000IU daily. ## Discharge Planning Use ???Adult END Diabetes Discharge?? Order Set Glargine (or other basal insulin) + GLP1 agonist if affordable + metformin 500mg BID - If the patient would like to be seen in the Diabetes Center, we will request an outpatient appointment. (Diabetes Center Scheduling: ) - recommend asking spray worker to assess patient inpatient -- Domonique Blake MD Endocrinology, Metabolism, & Lipid Research Contact Info: New Consults: [phone]) General Endocrine (Non-Diabetes): [phone] (Check 'Treatment Team' assignment for Diabetes 1 vs 2 vs 3) Diabetes After-Hours & Weekends: Diabetes Fellow [phone] or [phone] * Plan of Care - Rona Grant RN - 03/16/2023 4:35 AM CDT Goals: Clinical Goals for the Shift: Monitor VS/labs, wound care, provide comfort and safety Problem: Health Behavior: Goal: Understanding of discharge needs will improve Outcome: Progressing Problem: Activity: Goal: Mobility will improve Outcome: Progressing Problem: Nutritional: Goal: Dietary intake will improve Outcome: Progressing Problem: Skin Integrity: Goal: Ability to demonstrate warm and dry skin will improve Outcome: Progressing * Hospital Course - Ira Starks SOFTWARE TECHNICIAN - 03/15/2023 5:48 PM CDT Mr. Rene Hyatt is a 42 year old male who presented to [place] ED with a chief complaint of perineal / scrotal pain and swelling and a foot ulcer. CT there showed a perineal fluid collection / abscess with gas in the collection and he was transferred to [place] for surgical care. 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 PT denies SIRS. With neutrophilic leukocytosis and elevated inflammatory markers. CTAP w contrast w/ scrotal soft tissue thickening and subQ fluid / air suggesting abscess. S/p OR 03/06 with urology and ACCS for I&D of abscess and debridement. No tracking to rectum. S/p wound vac placement with urology. 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 Op cultures 03/06 growing strep anginosus and mixed organisms. Returned to OR 03/12 with urology with debridement of wound, wound closure and drain p laced. Op culture 03/10 growing mixed organisms and destiny glabrata susceptibility to fluconazole. He was treated with Unasyn (03/09- 03/25) and Micafungin 100 mg IV (03/15- 03/25) and was then transitioned to Augmentin 875/125 BID and Fluconazole 800mg every day at discharge to complete 14 day course (end date 03/28). Urology removed drain prior to discharge and wound was evaluated by wound RN with wound care instruction placed at discharge. Hypertension Blood pressure modestly elevated. Started losartan 25mg 03/17. Continued at discharge. Diabetic foot ulcer Wound to planter 1st metatarsal head. S/p debridement with podiatry 03/07, significant depth but negative probe to bone. L foot XR with no OM. - WBAT in heel strike shoe per PT. Diabetic shoes with custom offloading inserts for basketballs and footballs reverser shoe gear. Home health RN to continue wound care. Vitamin D deficiency Undetectable Vit D Level Started on vit d 50k international units twice weekly and calcium supplementation for x3 months. Plan for vit d 2k daily after 50k loading phase. Will need to follow up with PCP. T1DM (type 1 diabetes mellitus) Newly diagnosed this admission. Endocrinology consulted. Patient started on basal bolus insulin regimen. Insulin Ab, IA-2 Ab, ZNT8 Ab neg, GAD65 0.31 (<0.02). Started atorvastatin 20 mg daily. Final regimen at discharge Glargine 20 units qHS + Lispro 10 units TID AC + Metformin 500 mg PO BID + Trulicity 0.75 mg SC q weekly. * Plan of Care - Luz Elena Gentile RN - 03/15/2023 1:42 PM CDT Goals: Clinical Goals for the Shift: Monitor VS, provide comfort Summary: Problem: Health Behavior: Goal: Understanding of discharge needs will improve Outcome: Progressing Problem: Activity: Goal: Mobility will improve Outcome: Progressing Problem: Lack of Knowledge: Goal: Understanding of ways to prevent future skin breakdown will improve Outcome: Progressing Goal: Ability to identify appropriate dietary choices will improve Outcome: Progressing Problem: Nutritional: Goal: Dietary intake will improve Outcome: Progressing Goal: Ability to maintain a balanced intake and output will improve Outcome: Progressing Problem: Skin Integrity: Goal: Risk for impaired skin integrity will decrease Outcome: Progressing Goal: Ability to demonstrate warm and dry skin will improve Outcome: Progressing Goal: Circulation will improve to fullest extent possible Outcome: Progressing Problem: Lack of Knowledge: Goal: Ability to develop a pain control plan will improve Outcome: Progressing Goal: Ability to identify pain intensity on a pain scale and rate it consistently will improve Outcome: Progressing Goal: Ability to notify healthcare provider of pain before it becomes unmanageable or unbearable will improve Outcome: Progressing Problem: Lack of Knowledge Goal: Knowledge of disease or condition will improve Outcome: Progressing * Consults, Subsequent - Subha Butler MD - 03/15/2023 12:53 PM CDT Infectious Disease Subsequent Consult Note Infectious Disease Team: General 4 Contact Information: Please see [facility] Treatment Team listing for up-to-date contact information. Subjective Interval History: No acute events. He continues on unasyn tolerating well. Min remains in place planning for voiding trial next week, not sure when surgical drain will be removed. Patient states hewas told had to wait at least 1 month for Medicaid approval to be discharged to rehab facility. OR cultures 03/10 growing mixed micro and Destiny glabrata SDD to fluc. Objective Anti-infectives (From admission, onward) Start Dose/Rate Route Frequency Ordered Stop 03/09/23 1345 ampicillin-sulbactam (UNASYN) 3 g/110 mL in sodium chloride 0.9% (premix) 3 g 3 g over 30 Minutes intravenous Every 6 hours scheduled 03/09/23 1312 Vitals: 24hr Min/Max: Temp Min: 36.6 ??C (97.8 ??F) Max: 36.8 ??C (98.3 ??F) Pulse Min: 87 Max: 96 BP Min: 136/62 Max: 153/67 Resp Min: 16 Max: 18 SpO2 Min: 93 % Max: 97 % Most Recent : Vitals: 03/15/23 0735 BP: 153/67 Pulse: 87 Resp: 18 Temp: 36.6 ??C (97.8 ??F) SpO2: 93% I/O last 2 completed shifts: In: 350 [P.O.:240; IV Piggyback:110] Out: 4302 [Urine:4250; Drains:52] Active LDAs: Peripheral IV 03/06/23 20 G Right Antecubital (Active) Number of days: 5 Peripheral IV 03/06/23 20 G Left Antecubital (Active) Number of days: 5 Peripheral IV 03/08/23 20 G Anterior;Distal;Right Forearm (Active) Number of days: 3 Urethral Catheter Straight-tip;Non-latex (Active) Number of days: 5 Physical Exam: GENERAL: Awake, not in cardiorespiratory distress, morbid obese HEENT: Anicteric sclerae, pink conjunctivae, moist mucosae, no pharyngeal erythema, no neck masses LUNGS: Normal breath sounds, no crackles, no wheezes HEART: No heart murmurs, no gallops ABDOMEN: Nondistended, nontender, and soft abdomen : Scrotal edema improving, jock strap in place with surgical drain. Min with clear urine EXTREMITY: L foot with dressing in place, significant chronic skin changes and hyperkeratosis DERM: No exanthems or enanthems LYMPH: No cervical or inguinal lymphadenopathy NEURO: Oriented to time, place, person; pupils equally reactive to light, cranial nerves intact, nomotor or sensory deficits Lab/Radiology/Diagnostic Review: Lab Results Component Value Date MICROBIOLOGY (.) 03/10/2023 Preliminary Report - Final Review Pending: Few Mixed microorganisms. Includes the following: Rare Destiny glabrata For susceptibility results, refer to accession number [id number] on the scrotum abscess culture from 03/10/2023 MICROBIOLOGY (.) 03/10/2023 Preliminary Report: Few Mixed microorganisms. Includes the following: Rare Destiny glabrata Susceptibility testing results to follow. MICROBIOLOGY (.) 03/06/2023 Preliminary Report - Final Review Pending: Moderate Streptococcus anginosus For susceptibility results, refer to accession number [id number] on the scrotum tissue culture from 03/06/2023 Few Mixed aerobic and anaerobic microorganisms MICROBIOLOGY (.) 03/06/2023 Preliminary Report - Final Review Pending: Moderate Streptococcus anginosus Few Mixed aerobic and anaerobic microorganisms MICROBIOLOGY (.) 03/06/2023 Preliminary Report - Final Review Pending: Abundant Streptococcus anginosus For susceptibility results, refer to accession number [id number] on the scrotum tissue culture from 03/06/2023 Few Mixed aerobic and anaerobic microorganisms Radiology results were reviewed. No results found. XR Wrist Left 3 or More Views Result Date: 03/13/2023 No left wrist fracture. Electronically signed by: Juan Jeter MD Assessment/Plan Yamila's gangrene Assessment & Plan The patient is a 42 y.o. male [...] received a dose of vancomycin, cefepime and clindamycinand was transferred for urology evaluation. He was taken to OR with urology and general surgery on 03/06 and was found to have purulent fluid with necrotic tissue in perineum that extended down towards anus and tracked up to scrotum into inguinal canals. KARLA confirmed no connection. OR cultures grewStrep anginosus and mixed microorganisms. He was started on meropenem and vancomycin and admitted to SICU postop for insulin gtt. Returned back to OR on 03/07 for second look and repeat debridement ofdeeper tissues with WV placement. No repeat cultures obtained. WV complicated by fecal content leaki ng from fecal management devices. Podiatry was also consulted for L foot ulcer and had bedside debridement, deepest level subcutaneous tissue not probing to bone and no purulence. Returned to OR on 03/10 and noted to have necrotic skin on left wound which was excised, fibrinous exudate debrided, small pocket of fibrinous exudate and pus excised from left upper scrotum near testicle with cultures sent, wound tracked posteriorly on right side of rectum but no palpable abnormality on KARLA. OR cultures with mixed micro and rare Destiny glabrata, unclear significance since not isolated from initial intra-op cultures. Patient was taken back to OR 03/13 for complex wound closure. Noted to have healthy wound with granulation tissue, areas of fibrinous exudate debrided. Wound was closed and drain placed. 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 - reviewed; antibiotics recommended above are dosed accordingly., and The patient is being intensively monitored for antimicrobial toxicity from unasyn with the following tests: CBC and CMP. * Plan of Care - Rona Grant RN - 03/15/2023 6:20 AM CDT Goals: Clinical Goals for the Shift: Monitor VS/labs, wound care, provide comfort and safety Problem: Activity: Goal: Mobility will improve Outcome: Progressing Problem: Nutritional: Goal: Dietary intake will improve Outcome: Progressing Problem: Skin Integrity: Goal: Ability to demonstrate warm and dry skin will improve Outcome: Progressing * Plan of Care - Hope Hanna RN - 03/14/2023 6:18 PM CDT Goals: Clinical Goals for the Shift: monitor vs, wound care,fall prevention, increase mobility Problem: Activity: Goal: Mobility will improve Outcome: Progressing Problem: Health Behavior: Goal: Understanding of discharge needs will improve Outcome: Progressing Problem: Lack of Knowledge: Goal: Understanding of ways to prevent future skin breakdown will improve Outcome: Progressing Problem: Skin Integrity: Goal: Risk for impaired skin integrity will decrease Outcome: Progressing * Consults, Subsequent - Subha Butler MD - 03/14/2023 9:14 AM CDT Infectious Disease Subsequent Consult Note Infectious Disease Team: General 4 Contact Information: Please see [facility] Treatment Team listing for up-to-date contact information. Subjective Interval History: No acute events. He continues on unasyn tolerating well. Min remains in place planning for voiding trial in the upcoming days. He is concerned as he has not been able to even ambulate to bathroom. OR cultures 03/10 growing mixed micro and Destiny glabrata. Objective Anti-infectives (From admission, onward) Start Dose/Rate Route Frequency Ordered Stop 03/09/23 1345 ampicillin-sulbactam (UNASYN) 3 g/110 mL in sodium chloride 0.9% (premix) 3 g 3 g over 30 Minutes intravenous Every 6 hours scheduled 03/09/23 1312 Vitals: 24hr Min/Max: Temp Min: 36.4 ??C (97.5 ??F) Max: 37.3 ??C (99.2 ??F) Pulse Min: 83 Max: 89 BP Min: 124/67 Max: 158/73 Resp Min: 14 Max: 16 SpO2 Min: 92 % Max: 97 % Most Recent : Vitals: 03/14/23 0833 BP: 158/73 Pulse: 83 Resp: 14 Temp: 36.4 ??C (97.5 ??F) SpO2: 92% I/O last 2 completed shifts: In: 1420 [P.O.:1200; IV Piggyback:220] Out: 2750 [Urine:2650; Drains:100] Active LDAs: Peripheral IV 03/06/23 20 G Right Antecubital (Active) Number of days: 5 Peripheral IV 03/06/23 20 G Left Antecubital (Active) Number of days: 5 Peripheral IV 03/08/23 20 G Anterior;Distal;Right Forearm (Active) Number of days: 3 Urethral Catheter Straight-tip;Non-latex (Active) Number of days: 5 Physical Exam: GENERAL: Awake, not in cardiorespiratory distress, morbid obese HEENT: Anicteric sclerae, pink conjunctivae, moist mucosae, no pharyngeal erythema, no neck masses LUNGS: Normal breath sounds, no crackles, no wheezes HEART: No heart murmurs, no gallops ABDOMEN: Nondistended, nontender, and soft abdomen : Scrotal edema and erythema, wound in perineum EXTREMITY: L foot with dressing in place, significant chronic skin changes and hyperkeratosis DERM: No exanthems or enanthems LYMPH: No cervical or inguinal lymphadenopathy NEURO: Oriented to time, place, person; pupils equally reactive to light, cranial nerves intact, nomotor or sensory deficits Lab/Radiology/Diagnostic Review: Lab Results Component Value Date MICROBIOLOGY (.) 03/10/2023 Preliminary Report: Few Mixed microorganisms. Includes the following: Rare Yeast to be identified MICROBIOLOGY (.) 03/10/2023 Preliminary Report: Few Mixed microorganisms. Includes the following: Rare Yeast to be identified MICROBIOLOGY (.) 03/06/2023 Preliminary Report - Final Review Pending: Moderate Streptococcus anginosus For susceptibility results, refer to accession number [id number] on the scrotum tissue culture from 03/06/2023 Few Mixed aerobic and anaerobic microorganisms MICROBIOLOGY (.) 03/06/2023 Preliminary Report - Final Review Pending: Moderate Streptococcus anginosus Few Mixed aerobic and anaerobic microorganisms MICROBIOLOGY (.) 03/06/2023 Preliminary Report - Final Review Pending: Abundant Streptococcus anginosus For susceptibility results, refer to accession number [id number] on the scrotum tissue culture from 03/06/2023 Few Mixed aerobic and anaerobic microorganisms Radiology results were reviewed. No results found. XR Wrist Left 3 or More Views Result Date: 03/13/2023 No left wrist fracture. Electronically signed by: Juan Jeter MD Assessment/Plan Yamila's gangrene Assessment & Plan The patient is a 42 y.o. male [...] received a dose of vancomycin, cefepime and clindamycinand was transferred for urology evaluation. He was taken to OR with urology and general surgery on 03/06 and was found to have purulent fluid with necrotic tissue in perineum that extended down towards anus and tracked up to scrotum into inguinal canals. KARLA confirmed no connection. OR cultures grewStrep anginosus and mixed microorganisms. He was started on meropenem and vancomycin and admitted to SICU postop for insulin gtt. Returned back to OR on 03/07 for second look and repeat debridement ofdeeper tissues with WV placement. No repeat cultures obtained. WV complicated by fecal content leaki ng from fecal management devices. Podiatry was also consulted for L foot ulcer and had bedside debridement, deepest level subcutaneous tissue not probing to bone and no purulence. Returned to OR on 03/10 and noted to have necrotic skin on left wound which was excised, fibrinous exudate debrided, small pocket of fibrinous exudate and pus excised from left upper scrotum near testicle with cultures sent, wound tracked posteriorly on right side of rectum but no palpable abnormality on KARLA. OR cultures with mixed micro and rare Destiny glabrata, unclear significance since not isolated from initial intra-op cultures. Patient was taken back to OR 03/13 for complex wound closure. Noted to have healthy wound with granulation tissue, areas of fibrinous exudate debrided. Wound was closed and drain placed. 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 - reviewed; antibiotics recommended above are dosed accordingly., and The patient is being intensively monitored for antimicrobial toxicity from unasyn with the following tests: CBC and CMP. * Plan of Care - Rona Grant RN - 03/14/2023 5:35 AM CDT Goals: Clinical Goals for the Shift: Monitor VS, wound care, provide comfort and safety Problem: Health Behavior: Goal: Understanding of discharge needs will improve Outcome: Progressing Problem: Activity: Goal: Mobility will improve Outcome: Progressing Problem: Nutritional: Goal: Dietary intake will improve Outcome: Progressing * Consults, Subsequent - Alban Butler MD - 03/13/2023 5:41 PM CDT Endocrinology & Diabetes Progress Note Patient: Rene Hyatt, 42 y.o. male (: 1980) Room: [place] [address]/[place] [address] ( ) LOS: 7 Rene Hyatt is a 42 y.o. male with type 2 DM admitted with DKA and endocrine is consulted to help with DKA management. Interval Events & Subjective No complaints this am. CDE met with patient to teach insulin. TDD:33 units BG range: 154-196 Mostly at goal in the last 24 hours. MILTON positive 0.33 Diet: Adult Diet Restricted; Consistent Carbohydrate Recent Labs Lab Units 03/13/23 1326 03/13/23 1216 03/13/23 0826 03/12/23 2244 03/12/23 2038 03/12/23 1656 03/12/23 1512 03/12/23 1322 03/12/23 0926 03/12/23 0743 GLUCOSE mg/dL -- -- -- 196 -- -- -- -- -- -- POC GLUCOSE MONITOR mg/dL 195 191 154 -- 180 174 166 156 141 169 Interval Review of Systems Twelve point ROS reviewed and negative except as noted in HPI. All other systems negative. Vitals & Exam Temp: [36.8 ??C (98.3 ??F)-37.2 ??C (99 ??F)] 36.9 ??C (98.5 ??F) Pulse: [85-89] 87 BP: (124-145)/(63-70) 145/70 Resp: [16] 16 SpO2: [94 %-97 %] 96 % I/O this shift: In: 220 [IV Piggyback:220] Out: 60 [Drains:60] Physical Exam Gen : appears uncomfortbale HENT : normocephalic, atraumatic, moist mucus membranes, Eyes : conjunctiva clear, anicteric, Pulm : non-labored, on NC CV : regular rate & rhythm, Abd : soft, non-tender, non-distended, no striae Extr : atraumatic, nonpitting edema Skin : turgor normal, Neuro : alert, speech fluent, comprehension intact, moving all extremities Psych : cooperative, appropriate affect & mood, good insight & judgment Data Medications, labs, imaging, and diagnostics independently reviewed in Epic and commented on below. No results found for: TSH , T3FREE , FREET4 , TSI , THYROGLOBULI , THGAB Lab Results Component Value Date CHOL 106 03/06/2023 TRIG 93 03/06/2023 HDL 20 (L) 03/06/2023 LDLCALC 67 03/06/2023 Lab Results Component Value Date PTH 12 (L) 03/09/2023 25HYDROVITD <6 (L) 03/08/2023 CPEPTIDE 2.24 03/08/2023 XXX60PD 0.33 (H) 03/08/2023 [id number] 0.32 (H) 03/08/2023 Lab Results Component Value Date HGBA1C 13.3 (H) 03/06/2023 Assessment & Plan # Type 2 Diabetes Mellitus?, Uncontrolled, complicated by DKA-resolved Current HbA1c and reliability:13.3 Diabetes Provider: none Insurance: None Home regimen:none S/p insulin drip until gap closed on 03/08/2023 He has residual insulin secretion with Cpeptide of 1.84 with BG 142 MILTON Ab 0.33 Patient's inpatient glycemic control is complicated by variable PO intake. He has had adequate BG control while admitted. He is uninsured which complicates regimen. Would recommend ryan checking insulins and if needed we can change regimen for cost. Primary team is working on this but he does not have money with him and wants medicines sent to other pharmacy. Recommendations: Basal Insulin: - glargine 20 units tonight. Mealtime/Bolus Insulin: - lispro 8 -->10 units TID AC Correctional/Sliding-Scale Insulin: - SSI correctional lispro TID AC, HS - If NPO, hold meal time and switch to q4h Insulin resistant sliding scale - POC glucoses TID AC, HS, 2AM when eating - Consistent carb diet when eating; no juices, no regular soda [ ] please consult the diabetes nurse educator to meet with him - When NPO, continue glargine, hold mealtime lispro, change correctional (sliding scale) lispro andPOC glucoses to Q4hr - Consider D5/0.45NS 100 mls/hr or D10 50 ml/hr if prolonged NPO (>12hrs) - If he has severe hyperglycemia (>300), use the hyperglycemia urgency order set (make NPO, IV insulin, re-check in 1 hour) > The half-life of IV insulin is ~5 minutes; it's safer than giving multiple doses of subQ insulin (can last ~4 hours & builds up if given repeatedly). # HLD: - His diabetes and elevated cholesterol are indications for statin therapy. # HTN: - ACEi/ARB use in persons with both type 1 and type 2 diabetes can prevent the progression of renaldisease. #Hypocalcemia -resolved #Vit D def - Ca 8.0. albumin 2 days ago was low at 2.1, corrected Ca is 9.1. Recommend repeating ionized Ca, BMP and albumin - vitamin D undetectable - Would recommend starting [id number] increaes to twice weekly x2 months. Would also maintenance dose of 2000IU daily. ## Discharge Planning Use ???Adult END Diabetes Discharge?? Order Set Glargine (or other basal insulin) + GLP1 agonist if affordable + metformin 500mg BID - If the patient would like to be seen in the Diabetes Center, we will request an outpatient appointment. (Diabetes Center Scheduling: ) - recommend asking spray worker to assess patient inpatient -- Alban Butler MD Endocrinology, Metabolism, & Lipid Research Contact Info: New Consults: [phone]) General Endocrine (Non-Diabetes): [phone] (Check 'Treatment Team' assignment for Diabetes 1 vs 2 vs 3) Diabetes After-Hours & Weekends: Diabetes Fellow [phone] or [phone] * Plan of Care - Rosibel Lyons, HOUSEKEEPING/LAUNDRY SUPERVISOR - 03/13/2023 11:42 AM CDT SW met with patient at bedside. Patient inquired as to what was happening with his home and where his Medicaid application was in the process. Patient reported that police had come to the home and had said that he/his mother weren't allowed to live there anymore. Patient could not remember further details about who was there or what was said. Patient gave permission for SW to speak with his mother and to check through [facility] as to presence of hotline/investigation. SW called [facility] ([phone]) where mother currently resides. SW spoke with switchboard receptionist, who stated that patients do not have phones in their rooms. SW inquired as to whether mother couldcome to the desk to speak with SW (via wheelchair/assist from RN). Tree Girdler stated that she didn't know anything about the patient. SW then attempted to reach mother via phone numbers available, but only one was in service ([phone]) and it was the home phone. DIPIKA called [place] again and requested to speak with mother's RN. Was informed that RN did not answer the page and welcomed another call from SW later on. Called [facility] to check on presence of hotline/investigation. SW remained on hold for15 minutes and then disconnected. SW will make additional attempt at a later time. ADDENDUM 1501 DIPIKA called [facility] ([phone]) and requested to speak with assigned RN for patient's mother. DIPIKA was redirected multiple times but was eventually able to speak with Savannah. She reported that police had presented to the home and gone inside, where they found the house to be a mess. Savannah reported that a neighbor had called police and expressed concern about her being there alone (ella altman had been taken to hospital and Savannah to [facility]), at which point SW suggested that it was likely a welfare check. DIPIKA asked whether Savannah had received a call from [employer] -- she denied this. At Savannah's request, DIPIKA provided own contact information as well as the hospital/unit where patient was located. DIPIKA was instructed by SNF RN that best way to get in contact with Savannah would be to call main line and request that one of the RNs run their phone to her room. Rosibel Lyons LCSW * Plan of Care - Evelio Dang RN - 03/13/2023 11:01 AM CDT Problem: Health Behavior: Goal: Understanding of discharge needs will improve Outcome: Progressing Problem: Activity: Goal: Mobility will improve Outcome: Progressing Problem: Lack of Knowledge: Goal: Understanding of ways to prevent future skin breakdown will improve Outcome: Progressing Goal: Ability to identify appropriate dietary choices will improve Outcome: Progressing Problem: Nutritional: Goal: Dietary intake will improve Outcome: Progressing Goal: Ability to maintain a balanced intake and output will improve Outcome: Progressing Problem: Skin Integrity: Goal: Risk for impaired skin integrity will decrease Outcome: Progressing Goal: Ability to demonstrate warm and dry skin will improve Outcome: Progressing Goal: Circulation will improve to fullest extent possible Outcome: Progressing Problem: Lack of Knowledge: Goal: Ability to develop a pain control plan will improve Outcome: Progressing Goal: Ability to identify pain intensity on a pain scale and rate it consistently will improve Outcome: Progressing Goal: Ability to notify healthcare provider of pain before it becomes unmanageable or unbearable will improve Outcome: Progressing Problem: Lack of Knowledge Goal: Knowledge of disease or condition will improve Outcome: Progressing Goals: Clinical Goals for the Shift: Get procedure, receive abx Summary: Wound care for patient provided, administer abx per order, promote comfort and safety. * Consults, Subsequent - Subha Butler MD - 03/13/2023 8:55 AM CDT Infectious Disease Subsequent Consult Note Infectious Disease Team: General 4 Contact Information: Please see EPIC Treatment Team listing for up-to-date contact information. Subjective Interval History: Patient was taken back to OR yesterday. Noted to have healthy wound with granulation tissue, areas of fibrinous exudate debrided. Wound was closed and drain placed. OR cultures 10/3growing mixed micro and yeast. He continues on unasyn tolerating well. Objective Anti-infectives (From admission, onward) Start Dose/Rate Route Frequency Ordered Stop 03/09/23 1345 ampicillin-sulbactam (UNASYN) 3 g/110 mL in sodium chloride 0.9% (premix) 3 g 3 g over 30 Minutes intravenous Every 6 hours scheduled 03/09/23 1312 Vitals: 24hr Min/Max: Temp Min: 36.7 ??C (98.1 ??F) Max: 37.4 ??C (99.3 ??F) Pulse Min: 79 Max: 94 BP Min: 122/58 Max: 154/71 Resp Min: 11 Max: 18 SpO2 Min: 91 % Max: 98 % Most Recent : Vitals: 03/13/23 0817 BP: 134/63 Pulse: 86 Resp: 16 Temp: 36.8 ??C (98.3 ??F) SpO2: 97% I/O last 2 completed shifts: In: 500 [I.V.:500] Out: 2595 [Urine:2525; Drains:50; Blood:20] Active LDAs: Peripheral IV 03/06/23 20 G Right Antecubital (Active) Number of days: 5 Peripheral IV 03/06/23 20 G Left Antecubital (Active) Number of days: 5 Peripheral IV 03/08/23 20 G Anterior;Distal;Right Forearm (Active) Number of days: 3 Urethral Catheter Straight-tip;Non-latex (Active) Number of days: 5 Physical Exam: GENERAL: Awake, not in cardiorespiratory distress, morbid obese HEENT: Anicteric sclerae, pink conjunctivae, moist mucosae, no pharyngeal erythema, no neck masses LUNGS: Normal breath sounds, no crackles, no wheezes HEART: No heart murmurs, no gallops ABDOMEN: Nondistended, nontender, and soft abdomen : Scrotal edema and erythema, wound in perineum EXTREMITY: L foot with dressing in place, significant chronic skin changes and hyperkeratosis DERM: No exanthems or enanthems LYMPH: No cervical or inguinal lymphadenopathy NEURO: Oriented to time, place, person; pupils equally reactive to light, cranial nerves intact, nomotor or sensory deficits Lab/Radiology/Diagnostic Review: Lab Results Component Value Date MICROBIOLOGY Preliminary Report: Culture results pending. (.) 03/10/2023 MICROBIOLOGY Preliminary Report: Culture results pending. (.) 03/10/2023 MICROBIOLOGY (.) 03/06/2023 Preliminary Report - Final Review Pending: Moderate Streptococcus anginosus For susceptibility results, refer to accession number [id number] on the scrotum tissue culture from 03/06/2023 Few Mixed aerobic and anaerobic microorganisms MICROBIOLOGY (.) 03/06/2023 Preliminary Report - Final Review Pending: Moderate Streptococcus anginosus Few Mixed aerobic and anaerobic microorganisms MICROBIOLOGY (.) 03/06/2023 Preliminary Report - Final Review Pending: Abundant Streptococcus anginosus For susceptibility results, refer to accession number [id number] on the scrotum tissue culture from 03/06/2023 Few Mixed aerobic and anaerobic microorganisms Radiology results were reviewed. No results found. No results found. Assessment/Plan Yamila's gangrene Assessment & Plan The patient is a 42 y.o. male [...] received a dose of vancomycin, cefepime and clindamycinand was transferred for urology evaluation. He was taken to OR with urology and general surgery on 03/06 and was found to have purulent fluid with necrotic tissue in perineum that extended down towards anus and tracked up to scrotum into inguinal canals. KARLA confirmed no connection. OR cultures grewStrep anginosus and mixed microorganisms. He was started on meropenem and vancomycin and admitted to SICU postop for insulin gtt. Returned back to OR on 03/07 for second look and repeat debridement ofdeeper tissues with WV placement. No repeat cultures obtained. WV complicated by fecal content leaki ng from fecal management devices. Podiatry was also consulted for L foot ulcer and had bedside debridement, deepest level subcutaneous tissue not probing to bone and no purulence. Returned to OR on 03/10 and noted to have necrotic skin on left wound which was excised, fibrinous exudate debrided, small pocket of fibrinous exudate and pus excised from left upper scrotum near testicle with cultures sent, wound tracked posteriorly on right side of rectum but no palpable abnormality on KARLA. OR cultures with mixed micro and rare yeast. Patient was taken back to OR 03/13 for complex wound closure. Noted to have healthy wound with granulation tissue, areas of fibrinous exudate debrided. Wound was closed and drain placed. 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 - reviewed; antibiotics recommended above are dosed accordingly., and The patient is being intensively monitored for antimicrobial toxicity from unasyn with the following tests: CBC and CMP. * Plan of Care - Mali Bobby RN - 03/13/2023 7:43 AM CDT Report per DCAM:Patient is not medically stable for discharge today per MD. Impression:Admitted with scrotal abscess and new onset DM. Pt to OR yesterday with urology for debridement of wound, wound closure with drain placed. Referrals:none at this time Problem:Ensure acute medical needs are met and patient has a safe d/c plan. Pt is uninsured,(has been seen by [employer] sales representative) pt has no PCP. Support:Mother Transportation:TBD F/U appointment:Appointment to be addressed prior to discharge. ADD:03/17/2023 Goal/Plan: Collaboration with patient/family, clinical team to identify discharge needs to assure interventions completed for safe discharge and continuum of care, and that patient/family are agreeable with.; Case Management will follow for planning and referrals as needed. If any further discharge needs arise please contact the covering case management manager. * Plan of Care - Bethany Saravia RN - 03/13/2023 2:25 AM CDT Problem: Health Behavior: Goal: Understanding of discharge needs will improve Outcome: Progressing Problem: Activity: Goal: Mobility will improve Outcome: Progressing Problem: Lack of Knowledge: Goal: Understanding of ways to prevent future skin breakdown will improve Outcome: Progressing Goal: Ability to identify appropriate dietary choices will improve Outcome: Progressing Problem: Nutritional: Goal: Dietary intake will improve Outcome: Progressing Goal: Ability to maintain a balanced intake and output will improve Outcome: Progressing Problem: Skin Integrity: Goal: Risk for impaired skin integrity will decrease Outcome: Progressing Goal: Ability to demonstrate warm and dry skin will improve Outcome: Progressing Goal: Circulation will improve to fullest extent possible Outcome: Progressing Problem: Lack of Knowledge: Goal: Ability to develop a pain control plan will improve Outcome: Progressing Goal: Ability to identify pain intensity on a pain scale and rate it consistently will improve Outcome: Progressing Goal: Ability to notify healthcare provider of pain before it becomes unmanageable or unbearable will improve Outcome: Progressing Problem: Lack of Knowledge Goal: Knowledge of disease or condition will improve Outcome: Progressing Goals: Clinical Goals for the Shift: Get procedure, receive abx * Consults, Sterling Dubois MD - 03/12/2023 8:03 PM CDT Endocrinology & Diabetes Progress Note Patient: Rene Hyatt, 42 y.o. male (: 1980) Room: [place] [address] [address] ( ) LOS: 6 Rene Hyatt is a 42 y.o. male with type 2 DM admitted with DKA and endocrine is consulted to help with DKA management. Interval Events & Subjective Seen after OR today. Patient appears tired, but endorses feeling hungry. Denies nausea and vomiting. TDD: 49 units BG range: 141-196 Mostly at goal in the last 24 hours. MILTON positive 0.33 Diet: Adult Diet Restricted; Consistent Carbohydrate Recent Labs Lab Units 03/12/23 1656 03/12/23 1512 03/12/23 1322 03/12/23 0926 03/12/23 0743 03/11/23 2231 03/11/23 2017 03/11/23 1725 03/11/23 1151 03/11/23 0738 GLUCOSE mg/dL -- -- -- -- -- 176 -- -- -- -- POC GLUCOSE MONITOR mg/dL 174 166 156 141 169 -- 196 205* 241* 194 Interval Review of Systems Twelve point ROS reviewed and negative except as noted in HPI. All other systems negative. Vitals & Exam Temp: [36.7 ??C (98.1 ??F)-37.3 ??C (99.1 ??F)] 37.2 ??C (98.9 ??F) Pulse: [79-94] 92 BP: (131-154)/(62-74) 153/74 Resp: [11-18] 16 SpO2: [91 %-98 %] 96 % No intake/output data recorded. Physical Exam Gen : appears uncomfortbale HENT : normocephalic, atraumatic, moist mucus membranes, Eyes : conjunctiva clear, anicteric, Pulm : non-labored, on NC CV : regular rate & rhythm, Abd : soft, non-tender, non-distended, no striae Extr : atraumatic, nonpitting edema Skin : turgor normal, Neuro : alert, speech fluent, comprehension intact, moving all extremities Psych : cooperative, appropriate affect & mood, good insight & judgment Data Medications, labs, imaging, and diagnostics independently reviewed in Epic and commented on below. No results found for: TSH , T3FREE , FREET4 , TSI , THYROGLOBULI , THGAB Lab Results Component Value Date CHOL 106 03/06/2023 TRIG 93 03/06/2023 HDL 20 (L) 03/06/2023 LDLCALC 67 03/06/2023 Lab Results Component Value Date PTH 12 (L) 03/09/2023 25HYDROVITD <6 (L) 03/08/2023 CPEPTIDE 2.24 03/08/2023 EST19TZ 0.33 (H) 03/08/2023 [id number] 0.32 (H) 03/08/2023 Lab Results Component Value Date HGBA1C 13.3 (H) 03/06/2023 Assessment & Plan # Type 2 Diabetes Mellitus?, Uncontrolled, complicated by DKA-resolved Current HbA1c and reliability:13.3 Diabetes Provider: none Insurance: None Home regimen:none S/p insulin drip until gap closed on 03/08/2023 He has residual insulin secretion with Cpeptide of 1.84 with BG 142 MILTON Ab 0.33 Patient's inpatient glycemic control is complicated by variable PO intake. He has had adequate BG control while admitted. He is uninsured which complicates regimen. Would recommend ryan checking insulins and if needed we can change regimen for cost. Primary team is working on this but he does not have money with him and wants medicines sent to other pharmacy. Recommendations: Basal Insulin: - glargine 20 units tonight. Mealtime/Bolus Insulin: - lispro 8 units TID AC Correctional/Sliding-Scale Insulin: - SSI correctional lispro TID AC, HS - If NPO, hold meal time and switch to q4h Insulin resistant sliding scale - POC glucoses TID AC, HS, 2AM when eating - Consistent carb diet when eating; no juices, no regular soda [ ] please consult the diabetes nurse educator to meet with him - When NPO, continue glargine, hold mealtime lispro, change correctional (sliding scale) lispro andPOC glucoses to Q4hr - Consider D5/0.45NS 100 mls/hr or D10 50 ml/hr if prolonged NPO (>12hrs) - If he has severe hyperglycemia (>300), use the hyperglycemia urgency order set (make NPO, IV insulin, re-check in 1 hour) > The half-life of IV insulin is ~5 minutes; it's safer than giving multiple doses of subQ insulin (can last ~4 hours & builds up if given repeatedly). # HLD: - His diabetes and elevated cholesterol are indications for statin therapy. # HTN: - ACEi/ARB use in persons with both type 1 and type 2 diabetes can prevent the progression of renaldisease. #Hypocalcemia -resolved #Vit D def - Ca 8.0. albumin 2 days ago was low at 2.1, corrected Ca is 9.1. Recommend repeating ionized Ca, BMP and albumin - vitamin D undetectable - Would recommend starting 11399NP weekly x3 months. Then maintenance dose of 2000IU daily. ## Discharge Planning Use ???Adult END Diabetes Discharge?? Order Set Glargine (or other basal insulin) + GLP1 agonist if affordable + metformin 500mg BID - If the patient would like to be seen in the Diabetes Center, we will request an outpatient appointment. (Diabetes Center Scheduling: ) - recommend asking spray worker to assess patient inpatient -- Sterling Negron MD Endocrinology, Metabolism, & Lipid Research Contact Info: New Consults: [phone]) General Endocrine (Non-Diabetes): [phone] (Check 'Treatment Team' assignment for Diabetes 1 vs 2 vs 3) Diabetes After-Hours & Weekends: Diabetes Fellow [phone] or [phone] Cosigned by Domonique Blake MD at 03/12/2023 8:07 PM CDT Associated attestation - Domonique Blake MD - 03/12/2023 8:07 PM CDT I have seen and examined the patient on 03/12/23. I agree with the findings and plan of care as documented in the resident's/fellow's note.. * ECIN Note - Mali Bobby RN - 03/12/2023 3:48 PM CDT Patient Information: Referral Order Details (96h ago through 96h from now) None * Plan of Care - Luz Elena Gentile RN - 03/12/2023 2:25 PM CDT Goals: Clinical Goals for the Shift: Get procedure, receive abx Summary: Problem: Health Behavior: Goal: Understanding of discharge needs will improve Outcome: Progressing Problem: Lack of Knowledge: Goal: Understanding of ways to prevent future skin breakdown will improve Outcome: Progressing Goal: Ability to identify appropriate dietary choices will improve Outcome: Progressing Problem: Nutritional: Goal: Dietary intake will improve Outcome: Progressing Goal: Ability to maintain a balanced intake and output will improve Outcome: Progressing Problem: Skin Integrity: Goal: Risk for impaired skin integrity will decrease Outcome: Progressing Goal: Ability to demonstrate warm and dry skin will improve Outcome: Progressing Goal: Circulation will improve to fullest extent possible Outcome: Progressing Problem: Lack of Knowledge: Goal: Ability to develop a pain control plan will improve Outcome: Progressing Goal: Ability to identify pain intensity on a pain scale and rate it consistently will improve Outcome: Progressing Goal: Ability to notify healthcare provider of pain before it becomes unmanageable or unbearable will improve Outcome: Progressing Problem: Lack of Knowledge Goal: Knowledge of disease or condition will improve Outcome: Progressing Problem: Activity: Goal: Mobility will improve Outcome: Not Progressing * Op Note - Hans Negron MD - 03/12/2023 11:10 AM CDT Operative Report SURGEON: Hans Negron MD SURGICAL TEAM: Surgeon(s) and Role: * Hans Negron MD - Primary * Dagoberto Paredes MD - Resident - Assisting * Deric Deal MD - Resident - Assisting * Desiree Velasco MD - Fellow DATE OF SURGERY : 03/12/2023 PREOPERATIVE DIAGNOSIS: Pre-op Diagnosis * Perineal abscess [L02.215] POSTOPERATIVE DIAGNOSIS: Post-op Diagnosis * Perineal abscess [L02.215] PROCEDURE: DEBRIDEMENT PERINEAL WOUND, COMPLEX WOUND CLOSURE ANESTHESIA: General INDICATION FOR PROCEDURE: 42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 OPERATIVE NOTE: Patient was identified in the preoperative holding area and informed consent was obtained. He was taken the operative theater. After smooth induction of general anesthesia, he was placed in the dorsal lithotomy position. He was prepped and draped in the usual sterile fashion. Time-out was performed. Intravenous antibiotics were administered. General surgery evaluated the patient and performed a digital rectal exam and did not believe therewas any communication between the rectum and the wound. I also performed a digital rectal exam and agree with these findings. The wound appeared healthy with granulation tissue present. Several areas of fibrinous exudate weredebrided sharply. A 19 [place] round drain was placed into the wound bed and out the right groin. This was sutured in place with a 3-0 nylon suture. Hemostasis was achieved using electrocautery. There was a small amount of oozing from the most posterior portion of the wound and Surgicel was placed in this location. We then proceeded with wound closure. Wound was closed in 3 layers with interrupted 2-0 Vicryl. Skin was closed with interrupted 2-0 Vicryl in a horizontal mattress fashion. The left scrotal counter incision was closed in a similar fashion. The larger incision measured 20 cm in length and the scrotal incision 5 cm. Xeroform and gauze fluffs were placed over the wound. He was awoken from anesthesia and taken to PACU in stable condition. Estimated Blood Loss: 20ml Blood/Blood Products Transfused: None Complications: None Condition on Discharge from the operating room was stable Hans Negron MD Date: 03/12/2023 Time: 6:11 PM TEACHING ATTESTATION : I was present and participated in all critical portions of the procedure including wound debridement, drain placement, and wound closure. When I was not present I was immediately available and Dr. Velasco was present. * Brief Op Note - Hans Negron MD - 03/12/2023 11:10 AM CDT Operative Progress Note Surgical Team: Surgeon(s) and Role: * Hans Negron MD - Primary * Dagoberto Paredes MD - Resident - Assisting * Deric Deal MD - Resident - Assisting * Desiree Velasco MD - Fellow Anesthesiologist: Lisa Carrion MD OUTCOMES SPECIALIST: Rona Rendon CRNA; Hope Mays CRNA Student Nurse Industrial Engineer: Hannah Thompson Human Resources Clerk: Vianey Bhakta RN Human Resources Clerk Relief: Vianey Burch RN Scrub Relief: Vianey Burch RN Scrub: Dacia Garg ST DATE OF SURGERY : 03/12/2023 Preoperative Diagnosis: Pre-op Diagnosis * Perineal abscess [L02.215] Postoperative Diagnosis: Post-op Diagnosis * Perineal abscess [L02.215] Procedure(s): Procedure(s) (LRB): DEBRIDEMENT PERINEAL WOUND (N/A) COMPLEX WOUND CLOSURE (N/A) Operative Findings: - Healthy appearing wound with granulation tissue - Minimal debridement of fibrinous exudate - EUA with general surgery without concern for rectal fistula or abnormality - Wound closed in layers with 2-0 Vicryl - 19Fr drain placed - Surgicell placed into deep posterior portion of wound prior to closure Estimated Blood Loss: 20ml Intraoperative Fluids: Per anesthesia recrod Specimens: No specimen collected in procedure Implants: Nothing was implanted during the procedure Blood/Blood Products Transfused: none Complications: None Condition on Discharge from the operating room was stable Hans Negron MD Date: 03/12/2023 Time: 12:50 PM TEACHING ATTESTATION : I was present and directly participated in the entire procedure (including opening and closing). * Plan of Care - Bethany Saravia RN - 03/11/2023 11:56 PM CDT Problem: Health Behavior: Goal: Understanding of discharge needs will improve Outcome: Progressing Problem: Activity: Goal: Mobility will improve Outcome: Progressing Problem: Lack of Knowledge: Goal: Understanding of ways to prevent future skin breakdown will improve Outcome: Progressing Goal: Ability to identify appropriate dietary choices will improve Outcome: Progressing Problem: Nutritional: Goal: Dietary intake will improve Outcome: Progressing Goal: Ability to maintain a balanced intake and output will improve Outcome: Progressing Problem: Skin Integrity: Goal: Risk for impaired skin integrity will decrease Outcome: Progressing Goal: Ability to demonstrate warm and dry skin will improve Outcome: Progressing Goal: Circulation will improve to fullest extent possible Outcome: Progressing Problem: Lack of Knowledge: Goal: Ability to develop a pain control plan will improve Outcome: Progressing Goal: Ability to identify pain intensity on a pain scale and rate it consistently will improve Outcome: Progressing Goal: Ability to notify healthcare provider of pain before it becomes unmanageable or unbearable will improve Outcome: Progressing Problem: Lack of Knowledge Goal: Knowledge of disease or condition will improve Outcome: Progressing Goals: Clinical Goals for the Shift: Receive abx * Plan of Care - Luz Elena Gentile RN - 03/11/2023 4:27 PM CDT Goals: Clinical Goals for the Shift: Receive abx Summary: Problem: Health Behavior: Goal: Understanding of discharge needs will improve Outcome: Progressing Problem: Lack of Knowledge: Goal: Ability to identify appropriate dietary choices will improve Outcome: Progressing Problem: Nutritional: Goal: Dietary intake will improve Outcome: Progressing Goal: Ability to maintain a balanced intake and output will improve Outcome: Progressing Problem: Skin Integrity: Goal: Risk for impaired skin integrity will decrease Outcome: Progressing Goal: Ability to demonstrate warm and dry skin will improve Outcome: Progressing Goal: Circulation will improve to fullest extent possible Outcome: Progressing Problem: Lack of Knowledge: Goal: Ability to develop a pain control plan will improve Outcome: Progressing Goal: Ability to identify pain intensity on a pain scale and rate it consistently will improve Outcome: Progressing Goal: Ability to notify healthcare provider of pain before it becomes unmanageable or unbearable will improve Outcome: Progressing Problem: Lack of Knowledge Goal: Knowledge of disease or condition will improve Outcome: Progressing * Plan of Care - Rosibel Lyons LCSW - 03/11/2023 4:12 PM CDT SW presented to bedside after CM noted potential concerns with home conditions. SW introduced self and reason for visit. Patient denied that anything was wrong and that he just needed his home phone number -- declined SW's offer of assistance to try to obtain it. Patient then received a phone call,so SW unable to explore potential home concerns further. Patient nodded in agreement that SW could return at another time. SW to do so. Roisbel Lyons LCSW * Consults, Subsequent - Sterling Negron MD - 03/11/2023 12:35 PM CDT Endocrinology & Diabetes Progress Note Patient: Rene Hyatt, 42 y.o. male (: 1980) Room: [place] [address]/[place] [address] ( ) LOS: 5 Rene Hyatt is a 42 y.o. male with type 2 DM admitted with DKA and endocrine is consulted to help with DKA management. Interval Events & Subjective Primay team has been working to get his medicines at reasonable cost. He feels fine today. He is tolerating diet without nausea and vomiting No pancreatitis. TDD: 38 units BG range: 141-241 MILTON positive 0.33 Diet: Adult Diet Restricted; Consistent Carbohydrate NPO Diet Recent Labs Lab Units 03/11/23 1151 03/11/23 0738 03/10/23 2222 03/10/23 2207 03/10/23 1703 03/10/23 1147 03/10/23 0828 03/09/23 2142 03/09/23 2115 03/09/23 1655 GLUCOSE mg/dL -- -- 186 -- -- -- -- 184 -- -- POC GLUCOSE MONITOR mg/dL 241* 194 -- 183 209* 166 141 -- 186 189 Interval Review of Systems Twelve point ROS reviewed and negative except as noted in HPI. All other systems negative. Vitals & Exam Temp: [36.3 ??C (97.4 ??F)-36.9 ??C (98.5 ??F)] 36.3 ??C (97.4 ??F) Pulse: [79-83] 83 BP: (128-139)/(62-69) 128/64 Resp: [16-18] 16 SpO2: [93 %-96 %] 93 % I/O this shift: In: - Out: 1750 [Urine:1750] Physical Exam Gen : no acute distress, alert, appropriate, HENT : normocephalic, atraumatic, moist mucus membranes, Eyes : conjunctiva clear, anicteric, Pulm : non-labored, on room air CV : regular rate & rhythm, Abd : soft, non-tender, non-distended, no striae Extr : atraumatic, no cyanosis/clubbing/edema Skin : turgor normal, no rashes/wounds/lesions Neuro : alert, speech fluent, comprehension intact, moving all extremities Psych : cooperative, appropriate affect & mood, good insight & judgment Data Medications, labs, imaging, and diagnostics independently reviewed in Epic and commented on below. No results found for: TSH , T3FREE , FREET4 , TSI , THYROGLOBULI , THGAB Lab Results Component Value Date CHOL 106 03/06/2023 TRIG 93 03/06/2023 HDL 20 (L) 03/06/2023 LDLCALC 67 03/06/2023 Lab Results Component Value Date PTH 12 (L) 03/09/2023 25HYDROVITD <6 (L) 03/08/2023 CPEPTIDE 2.24 03/08/2023 SSH52PA 0.33 (H) 03/08/2023 Lab Results Component Value Date HGBA1C 13.3 (H) 03/06/2023 Assessment & Plan # Type 2 Diabetes Mellitus?, Uncontrolled, complicated by DKA-resolved Current HbA1c and reliability:13.3 Diabetes Provider: none Insurance: None Home regimen:none S/p insulin drip until gap closed on 03/08/2023 He has residual insulin secretion with Cpeptide of 1.84 with BG 142 MILTON Ab 0.33 Patient's inpatient glycemic control is complicated by variable PO intake. He has had adequate BG control while admitted. He is uninsured which complicates regimen. Would recommend ryan checking insulins and if needed we can change regimen for cost. Primary team is working on this but he does not have money with him and wants medicines sent to other pharmacy. Recommendations: Basal Insulin: - glargine 20 units tonight. Mealtime/Bolus Insulin: - lispro 8 units TID AC Correctional/Sliding-Scale Insulin: - SSI correctional lispro TID AC, HS - If NPO, hold meal time and switch to q4h Insulin resistant sliding scale - POC glucoses TID AC, HS, 2AM when eating - Consistent carb diet when eating; no juices, no regular soda [ ] please consult the diabetes nurse educator to meet with him - When NPO, continue glargine, hold mealtime lispro, change correctional (sliding scale) lispro andPOC glucoses to Q4hr - Consider D5/0.45NS 100 mls/hr or D10 50 ml/hr if prolonged NPO (>12hrs) - If he has severe hyperglycemia (>300), use the hyperglycemia urgency order set (make NPO, IV insulin, re-check in 1 hour) > The half-life of IV insulin is ~5 minutes; it's safer than giving multiple doses of subQ insulin (can last ~4 hours & builds up if given repeatedly). # HLD: - His diabetes and elevated cholesterol are indications for statin therapy. # HTN: - ACEi/ARB use in persons with both type 1 and type 2 diabetes can prevent the progression of renaldisease. #Hypocalcemia -resolved #Vit D def - Ca 8.0. albumin 2 days ago was low at 2.1, corrected Ca is 9.1. Recommend repeating ionized Ca, BMP and albumin - vitamin D undetectable - Would recommend starting 54063QH weekly x3 months. Then maintenance dose of 2000IU daily. ## Discharge Planning Use ???Adult END Diabetes Discharge?? Order Set Glargine (or other basal insulin) + GLP1 agonist if affordable + metformin 500mg BID - If the patient would like to be seen in the Diabetes Center, we will request an outpatient appointment. (Diabetes Center Scheduling: ) - recommend asking spray worker to assess patient inpatient -- Sterling Negron MD Endocrinology, Metabolism, & Lipid Research Contact Info: New Consults: [phone]) General Endocrine (Non-Diabetes): [phone] (Check 'Treatment Team' assignment for Diabetes 1 vs 2 vs 3) Diabetes After-Hours & Weekends: Diabetes Fellow [phone] or [phone] Cosigned by Domonique Blake MD at 03/11/2023 6:39 PM CDT Associated attestation - Domonique Blake MD - 03/11/2023 6:39 PM CDT I have seen and examined the patient on 03/11/23. I agree with the findings and plan of care as documented in the resident's/fellow's note.. * Plan of Care - Fannie Celaya - 03/11/2023 11:56 AM CDT CRC will reach out to patient to see if they would like assistance getting scheduled with an appointment to get established with a PCP. CRC will update notes if patient is agreeable, and appointment is scheduled. CRC has also provided contact information on AVS. Fannie Celaya [facility] [employer] [phone] * Consults, Subsequent - Subha Butler MD - 03/11/2023 9:02 AM CDT Infectious Disease Subsequent Consult Note Infectious Disease Team: General 4 Contact Information: Please see [facility] Treatment Team listing for up-to-date contact information. Subjective Interval History: Patient was taken back to OR yesterday. Noted to have necrotic skin on left woundwhich was excised, fibrinous exudate debrided, small pocket of fibrinous exudate and pus excised from left upper scrotum near testicle with cultures sent, wound tracked posteriorly on right side of rectum but no palpable abnormality on KARLA. OR cultures with GPC. Plan to RTOR on for partial closure. He was transferred to floor overnight. Reports doing ok, pain ongoing. No longer having nausea or vomiting, tolerating PO. Objective Anti-infectives (From admission, onward) Start Dose/Rate Route Frequency Ordered Stop 03/09/23 1345 ampicillin-sulbactam (UNASYN) 3 g/110 mL in sodium chloride 0.9% (premix) 3 g 3 g over 30 Minutes intravenous Every 6 hours scheduled 03/09/23 1312 Vitals: 24hr Min/Max: Temp Min: 36.5 ??C (97.7 ??F) Max: 36.9 ??C (98.5 ??F) Pulse Min: 79 Max: 93 BP Min: 119/66 Max: 155/91 Resp Min: 12 Max: 20 SpO2 Min: 91 % Max: 96 % Most Recent : Vitals: 03/11/23 0810 BP: 130/69 Pulse: 79 Resp: 16 Temp: 36.9 ??C (98.5 ??F) SpO2: 96% I/O last 2 completed shifts: In: 810 [P.O.:500; I.V.:200; IV Piggyback:110] Out: 630 [Urine:625; Blood:5] Active LDAs: Peripheral IV 03/06/23 20 G Right Antecubital (Active) Number of days: 5 Peripheral IV 03/06/23 20 G Left Antecubital (Active) Number of days: 5 Peripheral IV 03/08/23 20 G Anterior;Distal;Right Forearm (Active) Number of days: 3 Urethral Catheter Straight-tip;Non-latex (Active) Number of days: 5 Physical Exam: GENERAL: Awake, not in cardiorespiratory distress, morbid obese HEENT: Anicteric sclerae, pink conjunctivae, moist mucosae, no pharyngeal erythema, no neck masses LUNGS: Normal breath sounds, no crackles, no wheezes HEART: No heart murmurs, no gallops ABDOMEN: Nondistended, nontender, and soft abdomen : Scrotal edema and erythema, wound in perineum EXTREMITY: L foot with dressing in place, significant chronic skin changes and hyperkeratosis DERM: No exanthems or enanthems LYMPH: No cervical or inguinal lymphadenopathy NEURO: Oriented to time, place, person; pupils equally reactive to light, cranial nerves intact, nomotor or sensory deficits Lab/Radiology/Diagnostic Review: Lab Results Component Value Date MICROBIOLOGY Preliminary Report: No growth to date. (.) 03/10/2023 MICROBIOLOGY Preliminary Report: Culture results pending. (.) 03/10/2023 MICROBIOLOGY (.) 03/06/2023 Preliminary Report - Final Review Pending: Moderate Streptococcus anginosus For susceptibility results, refer to accession number [id number] on the scrotum tissue culture from 03/06/2023 Few Mixed aerobic and anaerobic microorganisms MICROBIOLOGY (.) 03/06/2023 Preliminary Report - Final Review Pending: Moderate Streptococcus anginosus Few Mixed aerobic and anaerobic microorganisms MICROBIOLOGY (.) 03/06/2023 Preliminary Report - Final Review Pending: Abundant Streptococcus anginosus For susceptibility results, refer to accession number [id number] on the scrotum tissue culture from 03/06/2023 Few Mixed aerobic and anaerobic microorganisms Radiology results were reviewed. No results found. No results found. Assessment/Plan Yamila's gangrene Assessment & Plan The patient is a 42 y.o. male [...] received a dose of vancomycin, cefepime and clindamycinand was transferred for urology evaluation. He was taken to OR with urology and general surgery on 03/06 and was found to have purulent fluid with necrotic tissue in perineum that extended down towards anus and tracked up to scrotum into inguinal canals. KARLA confirmed no connection. OR cultures grewStrep anginosus and mixed microorganisms. He was started on meropenem and vancomycin and admitted to SICU postop for insulin gtt. Returned back to OR on 03/07 for second look and repeat debridement ofdeeper tissues with WV placement. No repeat cultures obtained. WV complicated by fecal content leaki ng from fecal management devices. Podiatry was also consulted for L foot ulcer and had bedside debridement, deepest level subcutaneous tissue not probing to bone and no purulence. Returned to OR on 03/10 and noted to have necrotic skin on left wound which was excised, fibrinous exudate debrided, small pocket of fibrinous exudate and pus excised from left upper scrotum near testicle with cultures sent, wound tracked posteriorly on right side of rectum but no palpable abnormality on KARLA. OR cultures with GPC. Plan to RTOR on for partial closure. 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 - reviewed; antibiotics recommended above are dosed accordingly., and The patient is being intensively monitored for antimicrobial toxicity from unasyn with the following tests: CBC and CMP. * Plan of Care - Brandy Garcia RN - 03/11/2023 7:08 AM CDT Goals: Clinical Goals for the Shift: monitor Vs, labs, pain control Summary: patient alert and oriented x4. Breathing even and unlabored on room air. VS WNL. Ambulatedto bathroom with nurse assist; ronaldo fairly. Foot wound dressing changed; ronaldo well. No pain noted at this time. WCTM. Problem: Health Behavior: Goal: Understanding of discharge needs will improve Outcome: Progressing Problem: Activity: Goal: Mobility will improve Outcome: Progressing Problem: Lack of Knowledge: Goal: Understanding of ways to prevent future skin breakdown will improve Outcome: Progressing Goal: Ability to identify appropriate dietary choices will improve Outcome: Progressing Problem: Nutritional: Goal: Dietary intake will improve Outcome: Progressing Goal: Ability to maintain a balanced intake and output will improve Outcome: Progressing Problem: Skin Integrity: Goal: Risk for impaired skin integrity will decrease Outcome: Progressing Goal: Ability to demonstrate warm and dry skin will improve Outcome: Progressing Goal: Circulation will improve to fullest extent possible Outcome: Progressing Problem: Lack of Knowledge: Goal: Ability to develop a pain control plan will improve Outcome: Progressing Goal: Ability to identify pain intensity on a pain scale and rate it consistently will improve Outcome: Progressing Goal: Ability to notify healthcare provider of pain before it becomes unmanageable or unbearable will improve Outcome: Progressing Problem: Lack of Knowledge Goal: Knowledge of disease or condition will improve Outcome: Progressing * Assessment & Plan Note - Susan Epps MD - 03/10/2023 9:42 PM CDT Associated Problem(s): Anemia BL 10-11. No signs of bleeding -CTM Hgb * Assessment & Plan Note - Susan Epps MD - 03/10/2023 9:41 PM CDT Associated Problem(s): Diabetic foot ulcer (CMS/HCC) (HCC) Wound to planter 1st metatarsal head. S/p debridement with podiatry 03/07, significant depth but negative probe to bone. L foot XR with no OM - continue daily dressing changes - Wound RN consult for final recommendations for HHRN. - WBAT in heel strike shoe per PT - follow up in wound center at discharge - diabetic shoes with custom offloading inserts for alf sheogear - Heel strike shoe is causing the patient difficulty walking, collaborating with PT, nursing, DM re: solutions - collab w/ PT, ordered shoe for right foot to assist with balance / walking > mobility improved * Assessment & Plan Note - Susan Epps MD - 03/10/2023 9:41 PM CDT Associated Problem(s): Vitamin D deficiency Undetectable Vit D Level - continue vit d 50k international units twice weekly x 2 months and calcium supplementation for l9zpfedy. - plan for vit d 2k daily after 50k loading phase - f/u with PCP * Assessment & Plan Note - Susan Epps MD - 03/10/2023 9:40 PM CDT Associated Problem(s): T1DM (type 1 diabetes mellitus) ([facility]) (Resolved 02/17/2024) Newly diagnosed this admission. 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 PT denies SIRS. With neutrophilic leukocytosis and elevated inflammatory markers. CTAP w contrast w/ scrotal soft tissue thickening and subQ fluid / air suggesting abscess. S/p OR 03/06 with urology and ACCS for I&D of abscess and debridement. No tracking to rectum. S/p wound vac placement with urology. 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 Op cultures 03/06 growing strep anginosus [...] Op culture 03/10 growing mixed organisms and destiny glabrata susceptibility to fluconazole - continue Unasyn (03/09-), Micafungin 100 mg IV (03/15-) > Plan for 14d (End date 03/28) > Maytransition to Augmentin 875/125 BID and Fluconazole 800mg every day at discharge. - Urology removed drain * Consults, Subsequent - Sterling Negron MD - 03/10/2023 3:57 PM CDT Endocrinology & Diabetes Progress Note Patient: Rene Hyatt, 42 y.o. male (: 1980) Room: [place] [address]/[place] [address] ( ) LOS: 4 Rene Hyatt is a 42 y.o. male with type 2 DM admitted with DKA and endocrine is consulted to help with DKA management. Interval Events & Subjective Patient had no acute events overnight. They are feeling well this afternoon, had some vomiting thismorning. Endorsed poor sleep. Tolerating diet. He reports that he lives in [place] [facility]. He is uninsured TDD: 33 BG range: 142-215 Diet: Adult Diet Restricted; Consistent Carbohydrate Recent Labs Lab Units 03/10/23 1147 03/10/23 0828 03/09/23 2142 03/09/23 2115 03/09/23 1655 03/09/23 1126 03/09/23 0734 03/09/23 0329 03/09/23 0006 03/08/23 2059 GLUCOSE mg/dL -- -- 184 -- -- -- -- -- -- 215* POC GLUCOSE MONITOR mg/dL 166 141 -- 186 189 194 181 182 187 -- Interval Review of Systems Twelve point ROS reviewed and negative except as noted in HPI. All other systems negative. Vitals & Exam Temp: [36.4 ??C (97.5 ??F)-36.5 ??C (97.7 ??F)] 36.5 ??C (97.7 ??F) Pulse: [82-90] 84 BP: (119-155)/(66-91) 155/91 Resp: [0-20] 14 SpO2: [91 %-98 %] 94 % I/O this shift: In: 810 [P.O.:500; I.V.:200; IV Piggyback:110] Out: 630 [Urine:625; Blood:5] Physical Exam Gen : no acute distress, alert, appropriate, HENT : normocephalic, atraumatic, moist mucus membranes, Eyes : conjunctiva clear, anicteric, Pulm : non-labored, on room air CV : regular rate & rhythm, Abd : soft, non-tender, non-distended, no striae Extr : atraumatic, no cyanosis/clubbing/edema Skin : turgor normal, no rashes/wounds/lesions Neuro : alert, speech fluent, comprehension intact, moving all extremities Psych : cooperative, appropriate affect & mood, good insight & judgment Data Medications, labs, imaging, and diagnostics independently reviewed in Epic and commented on below. No results found for: TSH , T3FREE , FREET4 , TSI , THYROGLOBULI , THGAB Lab Results Component Value Date CHOL 106 03/06/2023 TRIG 93 03/06/2023 HDL 20 (L) 03/06/2023 LDLCALC 67 03/06/2023 Lab Results Component Value Date PTH 12 (L) 03/09/2023 25HYDROVITD <6 (L) 03/08/2023 CPEPTIDE 2.24 03/08/2023 Lab Results Component Value Date HGBA1C 13.3 (H) 03/06/2023 Assessment & Plan # Type 2 Diabetes Mellitus?, Uncontrolled, complicated by DKA-resolved Current HbA1c and reliability:13.3 Diabetes Provider: none Insurance: None Home regimen:none S/p insulin drip until gap closed on 03/08/2023 He has residual insulin secretion with Cpeptide of 1.84 with BG 142 Ab pending. Patient's inpatient glycemic control is complicated by variable PO intake. He has had adequate BG control while admitted. He is uninsured which complicates regimen. Would recommend ryan checking insulins and if needed we can change regimen for cost. Recommendations: Basal Insulin: - glargine 20 units tonight. Mealtime/Bolus Insulin: - lispro 6 units TID AC Correctional/Sliding-Scale Insulin: - SSI correctional lispro TID AC, HS - If NPO, hold meal time and switch to q4h Insulin resistant sliding scale - POC glucoses TID AC, HS, 2AM when eating - Consistent carb diet when eating; no juices, no regular soda [ ] please consult the diabetes nurse educator to meet with him - When NPO, continue glargine, hold mealtime lispro, change correctional (sliding scale) lispro andPOC glucoses to Q4hr - Consider D5/0.45NS 100 mls/hr or D10 50 ml/hr if prolonged NPO (>12hrs) - If he has severe hyperglycemia (>300), use the hyperglycemia urgency order set (make NPO, IV insulin, re-check in 1 hour) > The half-life of IV insulin is ~5 minutes; it's safer than giving multiple doses of subQ insulin (can last ~4 hours & builds up if given repeatedly). # HLD: - His diabetes and elevated cholesterol are indications for statin therapy. # HTN: - ACEi/ARB use in persons with both type 1 and type 2 diabetes can prevent the progression of renaldisease. #Hypocalcemia -resolved #Vit D def - Ca 8.0. albumin 2 days ago was low at 2.1, corrected Ca is 9.1. Recommend repeating ionized Ca, BMP and albumin - vitamin D undetectable - Would recommend starting [id number] weekly x3 months. Then maintenance dose of 2000IU daily. ## Discharge Planning Use ???Adult END Diabetes Discharge?? Order Set - If the patient would like to be seen in the Diabetes Center, we will request an outpatient appointment. (Diabetes Center Scheduling: ) - recommend asking spray worker to assess patient inpatient -- Sterling Negron MD Endocrinology, Metabolism, & Lipid Research Contact Info: New Consults: [phone]) General Endocrine (Non-Diabetes): [phone] (Check 'Treatment Team' assignment for Diabetes 1 vs 2 vs 3) Diabetes After-Hours & Weekends: Diabetes Fellow [phone] or [phone] Cosigned by Domonique Blake MD at 03/10/2023 7:21 PM CDT Associated attestation - Domonique Blake MD - 03/10/2023 7:21 PM CDT I have seen and examined the patient on 03/10/23. I agree with the findings and plan of care as documented in the resident's/fellow's note.. * Significant Event - Marcos Browne NP - 03/10/2023 3:17 PM CDT CHUGG-OUT (SICU to OU/Floor Transfer) SICU MD HANDOFF 42 y/o M presented to OSH with scrotal swelling (Yamila's gangrene) c/f soft tissue infection andulcer on left foot. 03/06:OR I/D scrotum to perirectal area, packed with Dakins, 1.8L crystalloid, 50EBL, abx, Insulin [id number] SICU on insulin gtt only 03/07 OR (Urology) for further debridement with urology, vac placed, Cx sent 03/10 OR for debridement and partial closure w/ VAC, Cx sent MD Consults: [x] ACCS [] Cardiology [] Endo [] ENT [] GI [] Hand [] ID [] Neuro [] NSGY [] Ortho [] Pain [] PRS [] Renal [] Spine-NSGY [] Spine-Ortho [x] Urology [] Other: Rehab/Ancillary Consults: [] BI (trauma patient with LOC) [] Chemical dependency [x] PT [x] OT [] Speech [] PM&R [] SMART (stroke patient) [x] Wound care SITUATIONAL AWARENESS PERTINENT physical exam findings on day of transfer: see prog note New findings that warrant follow-up and pending studies: [] Yes--describe: none [] None Important changes to home medications: [] Home medications stopped/on hold: [] Dose changes: [x] No notable changes NO HOME MEDS New medications to consider stopping prior to hospital discharge: [] New antipsychotic (started for ICU delirium): [] Other: Disposition/Planning: Eval by LTAC/Rehab/SNF [] Yes [] No [] N/A Facility: [facility] Contact: CURRENT ANTICOAGULANT THERAPY [x] VTE Prophylaxis [] Heparin [x] Lovenox [] SCDs [] IVC Filter [] Other: [] None - Reason: [] Therapeutic Anticoagulation Indication: [] Heparin [] Lovenox [] Other: Any previous issues with tolerating anticoagulants? [] Yes [] No Describe: Venous duplex performed? [] Yes ---> Most recent findings: [x] No CURRENT ANTIMICROBIAL THERAPY Unasyn IV Indication: SSTI (ID managing) Start Date: 03/09 Planned Duration: Per ID. Pt still going to OR so will likely be dependent on last OR date LINES/DRAINS/AIRWAYS PRESENT Peripheral IV 03/06/23 20 G Right Antecubital (Active) Number of days: 4 Peripheral IV 03/06/23 20 G Left Antecubital (Active) Number of days: 4 Peripheral IV 03/08/23 20 G Anterior;Distal;Right Forearm (Active) Number of days: 2 Urethral Catheter Straight-tip;Non-latex (Active) Number of days: 4 TO-DO LIST PRIOR TO TRANSFER Make sure the following monitors or precautions are ordered if indicated: Telemetry [] Yes [x] No Continuous pulse oximetry [] Yes [x] No WEST precautions [] Yes [x] No Difficult airway [] Yes [x] No Trach orders/signage [] Yes [x] No Size/Type: Date placed: Did patient require insulin while in SICU? [x] Yes, scheduled insulin [] Yes, sliding scale only ----> d/c SICU insulin and order floor sliding scale insulin [] No ----> d/c SICU insulin and blood glucose checks Is the patient receiving TPN? [] Yes ----> [] Today's bag is ordered [x] No Central line necessary? [] Yes [] No [x] N/A Groin line necessary? [] Yes [] No [x] N/A [x] Discontinue K/Mg/Phos repletion order (if applicable) [x] Discontinue stress ulcer prophylaxis if no longer indicated [x] Discontinue ICU alcohol withdrawal order set (meds and nursing communications -- replace with floor order set if ongoing therapy needed) [x] Signed & Held orders reconciled (all orders either released or discontinued) [x] Sign-out was called to the hospitalist service. QUESTIONS? Call [phone] ([phone] Yellow). * Plan of Care - Luis Daniel Lucero RN - 03/10/2023 11:33 AM CDT Patient Goals: Clinical Goals for the Shift: monitor Vs, labs, pain control Summary: Patient resting in bed VSS, no complaints of pain * Op Note - Hans Negron MD - 03/10/2023 8:18 AM CDT Operative Report SURGEON: Hans Negron MD SURGICAL TEAM: Surgeon(s) and Role: * Hans Negron MD - Primary * Jamari Whitfield MD - Resident - Assisting DATE OF SURGERY : 03/10/2023 PREOPERATIVE DIAGNOSIS: Pre-op Diagnosis * Perineal abscess [L02.215] POSTOPERATIVE DIAGNOSIS: Post-op Diagnosis * Perineal abscess [L02.215] PROCEDURE: DEBRIDEMENT WOUND ANESTHESIA: General INDICATION FOR PROCEDURE: 42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 FINDINGS: - 4x3cm necrotic skin on left wound border excised - Fibrinous exudate debrided - Small pocket of fibrinous exudate and pus excised and cultures obtained (left upper scrotum near testicle) - Wound tracks posteriorly on right side of rectum - No palpable abnormality on KARLA - Wound measured [id number] at conclusion OPERATIVE NOTE: Patient was identified and informed consent obtained. He was taken to the operative theater. After smooth induction of general anesthesia, he was placed in the dorsal lithotomy position. He was prepped and draped in usual sterile fashion. Time-out was performed. Intravenous antibiotics were administered. Digital rectal exam was performed. I did not appreciate any abnormality in the anal canal or rectum. There was an area of clearly necrotic skin on the left wound edge. This was excised. This measured 4 x 3 cm. Fibrinous exudate was debrided sharply throughout the wound, most prominently in the left upper scrotum. During this we did encounter an area of purulent drainage. This was cultured and tissue culture was sent as well. Pulsavac was used to thoroughly irrigate the wound. Hemostasis was obtained with electrocautery. The wound was then packed with Kerlix moistened with irrigant. He was woken from anesthesia. Estimated Blood Loss: 5mL Blood/Blood Products Transfused: None Complications: None Plan: - Tentatively plan for takeback 03/12/23 for debridement and possible closure - BID packing changes Condition on Discharge from the operating room was stable Hans Negron MD Date: 03/10/2023 Time: 8:34 AM TEACHING ATTESTATION : I was present and directly participated in the entire procedure (including opening and closing). * Plan of Care - Maryanne Fowler RN - 03/10/2023 4:41 AM CDT Problem: Health Behavior: Goal: Understanding of discharge needs will improve Outcome: Progressing Problem: Activity: Goal: Mobility will improve Outcome: Progressing Problem: Lack of Knowledge: Goal: Understanding of ways to prevent future skin breakdown will improve Outcome: Progressing Problem: Nutritional: Goal: Dietary intake will improve Outcome: Progressing Problem: Skin Integrity: Goal: Risk for impaired skin integrity will decrease Outcome: Progressing Problem: Lack of Knowledge: Goal: Ability to develop a pain control plan will improve Outcome: Progressing Goals: VSS, comfort * Plan of Care - Javier Harding RN - 03/09/2023 6:30 PM CDT Problem: Health Behavior: Goal: Understanding of discharge needs will improve Outcome: Progressing Problem: Activity: Goal: Mobility will improve Outcome: Progressing Problem: Lack of Knowledge: Goal: Understanding of ways to prevent future skin breakdown will improve Outcome: Progressing Goal: Ability to identify appropriate dietary choices will improve Outcome: Progressing Problem: Nutritional: Goal: Dietary intake will improve Outcome: Progressing Goal: Ability to maintain a balanced intake and output will improve Outcome: Progressing Problem: Skin Integrity: Goal: Risk for impaired skin integrity will decrease Outcome: Progressing Goal: Ability to demonstrate warm and dry skin will improve Outcome: Progressing Goal: Circulation will improve to fullest extent possible Outcome: Progressing Problem: Lack of Knowledge: Goal: Ability to develop a pain control plan will improve Outcome: Progressing Goal: Ability to identify pain intensity on a pain scale and rate it consistently will improve Outcome: Progressing Goal: Ability to notify healthcare provider of pain before it becomes unmanageable or unbearable will improve Outcome: Progressing Goals: Clinical Goals for the Shift: monitor Vs, labs, pain control Summary: * Plan of Care - Becca Almanza MSW - 03/09/2023 1:54 PM CDT SW consult for resources. Met with pt at bedside. Pt shared that he is uninsured and currently unemployed with no income. Requested assistance with finances. Pt reported that he cares for his paraplegic mother, Savannah Hyatt, , time checker. Pt shared that his mother is currently staying at [facility] while pt is inpatient. Sent medicaid request to [employer] and provided financial legal assistant application at bedside. Pt denied additional needs. Pt verbally nominated mother, Savannah Hyatt, , as surrogate decision maker. SW will continue to follow for additional needs. CM to follow for discharge planning needs. Becca Almanza LMSW * Initial Assessments - Paula Austin RN - 03/09/2023 1:48 PM CDT CM Initial Assessment Interview Note Information Obtained From: Other (Specify) Name: Savannah Hyatt (Mother) [phone] (03/09/23 1346) Admission Source: home Impression: Patient is a 42 y.o. male presented to the ICU with chief complaint of necrotizing skin infection. Patient originally presented to OSH with scrotal swelling (Yamila's gangrene) c/f soft tissue infection and ulcer on left foot. Plan Includes: Patient to discharge home with the support of their mother once medically ready. No home health needs have been identified at this time. Case Management will continue to follow for discharge needs. Health Insurance Coverage: self pay Prescription Coverage: No Pharmacy: [facility] - [place], [place] - 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 Patient's mother has MS and is unable to walk. Patient's father recently and that is when the patient became his mother's dye padder operator and moved in with her. Address and phone number verified with face sheet. Independent with ADLs at baseline. Denies DME use or home health prior to admission. Role of CM explained. DME: patient has a wheeled walker and wheelchair ramp in the house for his mother. Patient's motheris wheelchair bound Patient's Identified Problem/Goal Problem: Ensure acute medical needs are met and that patient has a safe discharge plan. Goal: Secure a discharge plan that patient/family are agreeable with and ensure patient has continuum of care. Case management will follow for discharge planning and send referrals as needed. Goals include: To assure continuity of care, To maximize coping skills, To assure patient is in a safe environment and To assure access to community resources. Plan includes: 1. Collaboration with patient, MD, direct care nurse, Logistics Manager, and other members of the health care team to assure needed interventions completed. 2. Return patient to optimal level of self-care post discharge. 3. Note Teller will follow for Discharge Planning - interventions as needed 4. Anticipated level of care at discharge 5. Planned Discharge Disposition Based on a comprehensive family assessment, assistance with instrumental activities of daily livingafter discharge will be provided by patient and family Through the course of our work I determined that the patient and family possesses the skill and ability to provide and monitor the care of the patient when he or she returns home. patient and family has the capacity to provide/monitor/arrange for the care of the patient. Finally, we determined that patient and family has the knowledge of available resources and that combining them with their existing resources will suffice to sustain and care for the patient when he or she returns home. The treatment team is aware of this information. All are in agreement with the aftercare plan. Paula Austin RN * Assessment & Plan Note - Subha Butler MD - 03/09/2023 9:32 AM CDTAssociated Problem(s): Yamila's gangrene (Resolved 03/10/2023) The patient is a 42 y.o. male [...] received a dose of vancomycin, cefepime and clindamycinand was transferred for urology evaluation. He was taken to OR with urology and general surgery on 03/06 and was found to have purulent fluid with necrotic tissue in perineum that extended down towards anus and tracked up to scrotum into inguinal canals. KARLA confirmed no connection. OR cultures grewStrep anginosus and mixed microorganisms. He was started on meropenem and vancomycin and admitted to SICU postop for insulin gtt. Returned back to OR on 03/07 for second look and repeat debridement ofdeeper tissues with WV placement. No repeat cultures obtained. WV complicated by fecal content leaki ng from fecal management devices. He is planned [...] cultures - ID will continue to follow * Consults, Subsequent - Sterling Negrno MD - 03/09/2023 8:15 AM CDT Endocrinology & Diabetes Progress Note Patient: Rene Hyatt, 42 y.o. male (: 1980) Room: [place] [address] [address] ( ) LOS: 3 Rene Hyatt is a 42 y.o. male with type 2 DM admitted with DKA and endocrine is consulted to help with DKA management. Interval Events & Subjective Patient had no acute events overnight. They are feeling well this afternoon, had some vomiting thismorning. Endorsed poor sleep. Tolerating diet. He reports that he [place] in [place] [facility]. He is uninsured TDD: 33 BG range: 142-215 Diet: Adult Diet Restricted; Consistent Carbohydrate; No juice on tray NPO Diet Recent Labs Lab Units 03/09/23 0734 03/09/23 0329 03/09/23 0006 03/08/23 2059 03/08/23 1934 03/08/23 1639 03/08/23 1203 03/08/23 0958 03/08/23 0906 03/08/23 0803 GLUCOSE mg/dL -- -- -- 215* -- -- -- -- -- -- POC GLUCOSE MONITOR mg/dL 181 182 187 -- 194 152 155 147 142 145 Interval Review of Systems Twelve point ROS reviewed and negative except as noted in HPI. All other systems negative. Vitals & Exam Temp: [37 ??C (98.6 ??F)-37.1 ??C (98.7 ??F)] 37.1 ??C (98.7 ??F) Pulse: [86-97] 86 BP: (136-154)/(68-78) 154/78 Resp: [14-21] 18 SpO2: [95 %-99 %] 97 % I/O this shift: In: 523 [IV Piggyback:523] Out: 400 [Drains:400] Physical Exam Gen : no acute distress, alert, appropriate, HENT : normocephalic, atraumatic, moist mucus membranes, Eyes : conjunctiva clear, anicteric, Pulm : non-labored, on room air CV : regular rate & rhythm, Abd : soft, non-tender, non-distended, no striae Extr : atraumatic, no cyanosis/clubbing/edema Skin : turgor normal, no rashes/wounds/lesions Neuro : alert, speech fluent, comprehension intact, moving all extremities Psych : cooperative, appropriate affect & mood, good insight & judgment Data Medications, labs, imaging, and diagnostics independently reviewed in Epic and commented on below. No results found for: TSH , T3FREE , FREET4 , TSI , THYROGLOBULI , THGAB Lab Results Component Value Date CHOL 106 03/06/2023 TRIG 93 03/06/2023 HDL 20 (L) 03/06/2023 LDLCALC 67 03/06/2023 Lab Results Component Value Date 25HYDROVITD <6 (L) 03/08/2023 Lab Results Component Value Date HGBA1C 13.3 (H) 03/06/2023 Assessment & Plan # Type 2 Diabetes Mellitus?, Uncontrolled, complicated by DKA-resolved Current HbA1c and reliability:13.3 Diabetes Provider: none Insurance: None Home regimen:none S/p insulin drip until gap closed on 03/08/2023 Patient's diabetes is not yet characterized. He may have a ketosis prone type 2 or have type 1 diabetes. T1D ab panel will be helpful along with cpeptide in assessing diabetes type. (Pending) Patient's inpatient glycemic control is complicated by variable PO intake. Recommendations: Basal Insulin: - consolidate to glargine 20 units tonight. - stop NPH scheduled Mealtime/Bolus Insulin: - lispro 6 units TID AC Correctional/Sliding-Scale Insulin: - SSI correctional lispro TID AC, HS - If NPO, hold meal time and switch to q4h Insulin resistant sliding scale - POC glucoses TID AC, HS, 2AM when eating - Consistent carb diet when eating; no juices, no regular soda [ ] please consult the diabetes nurse educator to meet with him - When NPO, continue glargine, hold mealtime lispro, change correctional (sliding scale) lispro andPOC glucoses to Q4hr - Consider D5/0.45NS 100 mls/hr or D10 50 ml/hr if prolonged NPO (>12hrs) - If he has severe hyperglycemia (>300), use the hyperglycemia urgency order set (make NPO, IV insulin, re-check in 1 hour) > The half-life of IV insulin is ~5 minutes; it's safer than giving multiple doses of subQ insulin (can last ~4 hours & builds up if given repeatedly). # HLD: - His diabetes and elevated cholesterol are indications for statin therapy. # HTN: - ACEi/ARB use in persons with both type 1 and type 2 diabetes can prevent the progression of renaldisease. #Hypocalcemia #Vit D def - Ca 8.0. albumin 2 days ago was low at 2.1, corrected Ca is 9.1. Recommend repeating ionized Ca, BMP and albumin - vitamin D undetectable - Would recommend starting [id number] weekly x3 months. Then maintenance dose of 2000IU daily. ## Discharge Planning Use ???Adult END Diabetes Discharge?? Order Set - If the patient would like to be seen in the Diabetes Center, we will request an outpatient appointment. (Diabetes Center Scheduling: ) - recommend asking spray worker to assess patient inpatient -- Sterling Negron MD Endocrinology, Metabolism, & Lipid Research Contact Info: New Consults: [phone]) General Endocrine (Non-Diabetes): [phone] (Check 'Treatment Team' assignment for Diabetes 1 vs 2 vs 3) Diabetes After-Hours & Weekends: Diabetes Fellow [phone] or [phone] Cosigned by Domonique Blake MD at 03/09/2023 7:20 PM CDT Associated attestation - Domonique Blake MD - 03/09/2023 7:20 PM CDT I have seen and examined the patient on 03/09/23. I agree with the findings and plan of care as documented in the resident's/fellow's note.. * Plan of Care - Jordi Grewal RN - 03/09/2023 12:42 AM CDT Goals: Clinical Goals for the Shift: monitor Vs, labs, pain control Summary: Problem: Health Behavior: Goal: Understanding of discharge needs will improve Outcome: Not Progressing Problem: Activity: Goal: Mobility will improve Outcome: Not Progressing Problem: Lack of Knowledge: Goal: Understanding of ways to prevent future skin breakdown will improve Outcome: Not Progressing Goal: Ability to identify appropriate dietary choices will improve Outcome: Not Progressing Problem: Nutritional: Goal: Dietary intake will improve Outcome: Not Progressing Goal: Ability to maintain a balanced intake and output will improve Outcome: Not Progressing Problem: Skin Integrity: Goal: Risk for impaired skin integrity will decrease Outcome: Not Progressing Goal: Ability to demonstrate warm and dry skin will improve Outcome: Not Progressing Goal: Circulation will improve to fullest extent possible Outcome: Not Progressing Problem: Lack of Knowledge: Goal: Ability to develop a pain control plan will improve Outcome: Not Progressing Goal: Ability to identify pain intensity on a pain scale and rate it consistently will improve Outcome: Not Progressing Goal: Ability to notify healthcare provider of pain before it becomes unmanageable or unbearable will improve Outcome: Not Progressing * Consults, Subsequent - Toby Teresa MD - 03/08/2023 10:35 PM CDT Endocrinology & Diabetes Progress Note Patient: Rene Hyatt, 42 y.o. male (: 1980) Room: [place] [address] ( ) LOS: 2 Rene Hyatt is a 42 y.o. male with type 2 DM admitted with DKA and endocrine is consulted to help with DKA management. Interval Events & Subjective Patient not seen or examined No acute events overnight Gap closed and patient is off drop and transitioned to subq insulin Diet: Adult Diet Restricted; Consistent Carbohydrate; No juice on tray Recent Labs Lab Units 03/08/239 03/08/23 1934 03/08/23 1639 03/08/23 1203 03/08/23 0958 03/08/23 0906 03/08/23 0803 03/08/23 0659 03/08/23 0519 03/08/23 0256 GLUCOSE mg/dL 215* -- -- -- -- -- -- -- -- -- POC GLUCOSE MONITOR mg/dL -- 194 152 155 147 142 145 146 171 152 Interval Review of Systems Patient not seen or examined Vitals & Exam Temp: [36.5 ??C (97.7 ??F)-37.1 ??C (98.8 ??F)] 37.1 ??C (98.8 ??F) Pulse: [85-97] 95 BP: (120-160)/(64-84) 145/70 Resp: [13-24] 14 SpO2: [96 %-100 %] 99 % I/O this shift: In: - Out: 200 [Urine:200] Physical Exam Patient not seen or examined Data Medications, labs, imaging, and diagnostics independently reviewed in Epic and commented on below. No results found for: TSH , T3FREE , FREET4 , TSI , THYROGLOBULI , THGAB Lab Results Component Value Date CHOL 106 03/06/2023 TRIG 93 03/06/2023 HDL 20 (L) 03/06/2023 LDLCALC 67 03/06/2023 Lab Results Component Value Date 25HYDROVITD <6 (L) 03/08/2023 Lab Results Component Value Date HGBA1C 13.3 (H) 03/06/2023 Assessment & Plan # Type 2 Diabetes Mellitus, Uncontrolled, complicated by DKA-resolved Current HbA1c and reliability:13.3 Diabetes Provider: none Insurance: None Home regimen:none S/p insulin drip until gap closed on 03/08/2023 Recommendations: Basal Insulin: - 8 unit of NPH q8h Mealtime/Bolus Insulin: - lispro 6 units TID AC Correctional/Sliding-Scale Insulin: - SSI correctional lispro TID AC, HS - When not eating, recommend high dose of SSI q4h - POC glucoses TID AC, HS, 2AM when eating - Consistent carb diet when eating; no juices, no regular soda [ ] please consult the diabetes nurse educator to meet with him - When NPO, continue glargine, hold mealtime lispro, change correctional (sliding scale) lispro andPOC glucoses to Q4hr - Consider D5/0.45NS 100 mls/hr or D10 50 ml/hr if prolonged NPO (>12hrs) - If he has severe hyperglycemia (>300), use the hyperglycemia urgency order set (make NPO, IV insulin, re-check in 1 hour) > The half-life of IV insulin is ~5 minutes; it's safer than giving multiple doses of subQ insulin (can last ~4 hours & builds up if given repeatedly). # HLD: - His diabetes and elevated cholesterol are indications for statin therapy. # HTN: - ACEi/ARB use in persons with both type 1 and type 2 diabetes can prevent the progression of renaldisease. ## Discharge Planning Use ???Adult END Diabetes Discharge?? Order Set - If the patient would like to be seen in the Diabetes Center, we will request an outpatient appointment. (Diabetes Center Scheduling: ) - recommend asking spray worker to assess patient inpatient -- Toby Teresa MD Endocrinology, Metabolism, & Lipid Research Contact Info: New Consults: [phone]) General Endocrine (Non-Diabetes): [phone] (Check 'Treatment Team' assignment for Diabetes 1 vs 2 vs 3) Diabetes After-Hours & Weekends: Diabetes Fellow [phone] or [phone] Cosigned by Alban Butler MD at 03/09/2023 9:15 AM CDT * Plan of Care - Javier Harding RN - 03/08/2023 6:57 PM CDT Problem: Health Behavior: Goal: Understanding of discharge needs will improve Outcome: Progressing Problem: Activity: Goal: Mobility will improve Outcome: Progressing Problem: Lack of Knowledge: Goal: Understanding of ways to prevent future skin breakdown will improve Outcome: Progressing Goal: Ability to identify appropriate dietary choices will improve Outcome: Progressing Problem: Nutritional: Goal: Dietary intake will improve Outcome: Progressing Goal: Ability to maintain a balanced intake and output will improve Outcome: Progressing Problem: Skin Integrity: Goal: Risk for impaired skin integrity will decrease Outcome: Progressing Goal: Ability to demonstrate warm and dry skin will improve Outcome: Progressing Goal: Circulation will improve to fullest extent possible Outcome: Progressing Problem: Lack of Knowledge: Goal: Ability to develop a pain control plan will improve Outcome: Progressing Goal: Ability to identify pain intensity on a pain scale and rate it consistently will improve Outcome: Progressing Goal: Ability to notify healthcare provider of pain before it becomes unmanageable or unbearable will improve Outcome: Progressing Goals: Clinical Goals for the Shift: monitor VS, labs, BG Summary: * Plan of Care - Jordi Grewal RN - 03/07/2023 11:33 PM CDT Goals: Clinical Goals for the Shift: monitor VS, labs, BG Summary: Problem: Health Behavior: Goal: Understanding of discharge needs will improve Outcome: Not Progressing Problem: Activity: Goal: Mobility will improve Outcome: Not Progressing Problem: Lack of Knowledge: Goal: Understanding of ways to prevent future skin breakdown will improve Outcome: Not Progressing Goal: Ability to identify appropriate dietary choices will improve Outcome: Not Progressing Problem: Nutritional: Goal: Dietary intake will improve Outcome: Not Progressing Goal: Ability to maintain a balanced intake and output will improve Outcome: Not Progressing Problem: Skin Integrity: Goal: Risk for impaired skin integrity will decrease Outcome: Not Progressing Goal: Ability to demonstrate warm and dry skin will improve Outcome: Not Progressing Goal: Circulation will improve to fullest extent possible Outcome: Not Progressing Problem: Lack of Knowledge: Goal: Ability to develop a pain control plan will improve Outcome: Not Progressing Goal: Ability to identify pain intensity on a pain scale and rate it consistently will improve Outcome: Not Progressing Goal: Ability to notify healthcare provider of pain before it becomes unmanageable or unbearable will improve Outcome: Not Progressing * Plan of Care - Javier Harding RN - 03/07/2023 6:54 PM CDT Problem: Health Behavior: Goal: Understanding of discharge needs will improve Outcome: Progressing Problem: Activity: Goal: Mobility will improve Outcome: Progressing Problem: Lack of Knowledge: Goal: Understanding of ways to prevent future skin breakdown will improve Outcome: Progressing Goal: Ability to identify appropriate dietary choices will improve Outcome: Progressing Problem: Nutritional: Goal: Dietary intake will improve Outcome: Progressing Goal: Ability to maintain a balanced intake and output will improve Outcome: Progressing Problem: Skin Integrity: Goal: Risk for impaired skin integrity will decrease Outcome: Progressing Goal: Ability to demonstrate warm and dry skin will improve Outcome: Progressing Goal: Circulation will improve to fullest extent possible Outcome: Progressing Problem: Lack of Knowledge: Goal: Ability to develop a pain control plan will improve Outcome: Progressing Goal: Ability to identify pain intensity on a pain scale and rate it consistently will improve Outcome: Progressing Goal: Ability to notify healthcare provider of pain before it becomes unmanageable or unbearable will improve Outcome: Progressing Goals: monitor vital signs, promote comfort, lab work. 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 Excisional debridement of perineum and scrotum 2. 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 We further debrided this area back to healthy bleeding tissue along the edges. In particular, we debrided a significant amount of the subcutaneous fat and dartos muscle in the scrotum and deeper perineum. that was non-viable. Wound measures 20 x 8 x 10 cm deep. INDICATIONS FOR THE PROCEDURE Rene Hyatt is a 42 y.o. male with yamila's gangrene of the perineum, scrotum that was initially debrided yesterday and is coming back for a 2nd look DESCRIPTION OF PROCEDURE The patient was rabia back to the OR by anesthesia. He was sedated and intubated and placed in thedorsal lithotomy position and pressure points were padded. Preop antibiotics had been given. Pt had a prior wound of 18 x 5 x 7 cm in the scrotum/perineum and right groin. We further sharply debrided this area including skin, subcutaneous tissue and dartos muscle back to healthy bleeding tissue. Most of the debridement was focused on the deeper perineum and scrotum. Wound size was [id number] by the end of the case after our debridement. The wound tracked down to the rectum which seems to be the likely source though the rectum is viable. Hemostasis was achieved. We then washed it out with normal saline and then placed a wound vac. COMPLICATIONS None. CONDITION Stable. EBL 50 cc FLUIDS See anesthesia record ATTESTATION I was present and scrubbed for the entire procedure. * Consults, Subsequent - Adelita Benoit MD - 03/07/2023 7:13 AM CDT Urology Progress CC: Abscess in scrotal region, gas on CT scan Interval hx: - S/p debridement yesterday with Urology, purulent fluid and necrotic tissue found extending down to the anus tracking up to the scrotum and into inguinal canals - ACCS present during case, confirmed no rectal involvement - Patient packed with Kerlix and 2 silk stitches to keep dressing in place - Currently HDS off pressors, WBC 21.3,Cr baseline - Reports well controlled pain Lab Results Component Value Date CREATININE 0.79 (L) 03/06/2023 CREATININE 0.80 03/06/2023 CREATININE 0.80 03/06/2023 WBC 21.3 (H) 03/06/2023 WBC 17.3 (H) 03/06/2023 HGB 11.6 (L) 03/06/2023 HGB 12.3 (L) 03/06/2023 RBCU 6-10 (A) 03/06/2023 WBCU 0-5 03/06/2023 NITRITEU Negative 03/06/2023 ( Past Medical History: I personally reviewed the past medical history. History reviewed. No pertinent past medical history. History reviewed. No pertinent surgical history. Current Facility-Administered Medications Medication Dose Route Frequency Provider Last Rate Last Admin acetaminophen (TYLENOL) tablet 1,000 mg 1,000 mg oral Q6H Matheus Duffy PA 1,000 mg at 03/07/23 0607 clindamycin (CLEOCIN) 900 mg/50 mL in dextrose 5% (premix) 900 mg 900 mg intravenous Q8H Matheus Duffy PA Stopped at 03/07/23 06 dextrose gel in packet 15 g 15 g oral Q15 Min PRN Matheus Frias PA Or dextrose (D10W) 10% bolus 250 mL 250 mL intravenous Q15 Min PRN Matheus Frias PA docusate sodium (COLACE) capsule 100 mg 100 mg oral BID Matheus Frias PA Or docusate (COLACE) 10 mg/mL oral liquid 100 mg 100 mg feeding tube BID Matheus Frias PA 100 mgat 03/06/232116 enoxaparin (LOVENOX) syringe 40 mg 40 mg subcutaneous Daily-2100 Matheus Frias PA 40 mg at 03/06/232020 glucagon injection 1 mg 1 mg intramuscular Q30 Min PRN Matheus Frias PA HYDROmorphone (DILAUDID) injection 0.2 mg 0.2 mg intravenous Q2H PRN Deanna Thompsonall, MD PhD insulin regular bolus from bag 4-10 Units 4-10 Units intravenous PRN Matheus Frias PA And insulin regular in 0.9% sodium chloride (MYXREDLIN) 100 unit/100 mL (1 unit/mL) infusion (premix) 0-30 Units/hr intravenous Titrated Matheus Frias PA 2 mL/hr at 03/07/23 0656 2 Units/hr at 03/07/23 0656 And insulin regular bolus from bag 4-6 Units 4-6 Units intravenous Q1H PRN Matheus Frias PA 4 Units at 03/06/23 2156 meropenem (MERREM) 2,000 mg/120 mL in sodium chloride 0.9% (premix) 2,000 mg 2,000 mg intravenous Q8H ASTON Matheus Frias PA Stopped at 03/07/23 0530 oxyCODONE (ROXICODONE) tablet 5 mg 5 mg oral Q4H Deanna Soliman MD PhD 5 mg at 03/06/23 2250 senna (SENOKOT) tablet 1 tablet 1 tablet oral Daily Matheus Frias PA 1 tablet at 03/06/23 2021 vancomycin (VANCOCIN) 2,250 mg in sodium chloride 0.9% 500 mL IVPB 15 mg/kg intravenous Q12H Matheus Frias PA Stopped at 03/07/23 0700 Allergies: No Known Allergies Family History: History reviewed. No pertinent family history. Social History Tobacco Use Smoking status: Never Smokeless tobacco: None Substance and Sexual Activity Drug use: None Sexual activity: None Alcohol Use: Not on file Review of systems: A 10 point ROS was performed and is non contributory other than what is stated in the HPI. Physical Exam Vitals: 03/07/23 0400 03/07/23 0500 03/07/23 0600 03/07/23 0700 BP: 104/54 97/56 104/54 98/55 BP Location: Right arm Right arm Right arm Right arm Patient Position: HOB 30 degrees HOB 30 degrees HOB 30 degrees HOB 30 degrees Pulse: 85 84 83 84 Resp: 12 15 17 16 Temp: 36.6 ??C (97.8 ??F) TempSrc: Oral SpO2: 95% 95% 95% 94% Weight: Height: Constitutional: no acute distress Neurologic: alert and oriented Skin/Integumentary: warm, well perfused Respiratory: Nonlabored breathing Abdomen: soft, non-tender, non-distended Genitourinary: Scrotal erythema and edema, the scrotal skin is soft/non indurated with pitting edema, mildly warm to the touch. Large midline incision packed with Kerlex, [address] Skin surrounding wound appears healthy and intact Labs: The following lab results were personally reviewed by me: Lab Results Component Value Date WBC 21.3 (H) 03/06/2023 HGB 11.6 (L) 03/06/2023 HCT 35.8 (L) 03/06/2023 MCV 84.6 03/06/2023 LABPLAT 348 03/06/2023 Lab Results Component Value Date GLUCOSE 116 03/07/2023 CALCIUM 8.3 (L) 03/06/2023 SODIUM 140 03/06/2023 POTASSIUM 3.5 03/06/2023 CO2 26 03/06/2023 CHLORIDE 101 03/06/2023 BUNSER 14 03/06/2023 CREATININE 0.79 (L) 03/06/2023 Lab Results Component Value Date COLORU Yellow 03/06/2023 CLARITYU Clear 03/06/2023 SPECGRAVU 1.047 (H) 03/06/2023 PHURINE 6.0 03/06/2023 PROTURQL 1+ (A) 03/06/2023 GLUCOSEUR 3+ (A) 03/06/2023 KETONESU 2+ (A) 03/06/2023 BILIRUBINUR Negative 03/06/2023 BLOODUR 1+ (A) 03/06/2023 UROBILINOGEN <2.0 03/06/2023 NITRITEU Negative 03/06/2023 LEUKESTUR Negative 03/06/2023 WBCU 0-5 03/06/2023 RBCU 6-10 (A) 03/06/2023 EPISQUAMU 6-10 (A) 03/06/2023 MUCUSU Present (A) 03/06/2023 Images: The following images were personally reviewed by me. CT Abdomen Pelvis W Contrast EXAM DESCRIPTION: CT ABDOMEN PELVIS W CONTRAST REASON FOR STUDY: Abdominal infection suspected, is there abscess or cellulitis c/o scrotal pain x 2 weeks. Pt reports that he had an infection in his buttcrack that went down to his scrotum TECHNIQUE: CT scan of the abdomen and pelvis performed with intravenous and without oral contrast using helical scanning technique with dynamic intravenous contrast injection. Reconstructed coronal and sagittal MPR images reviewed. All images stored on PACS. Automated exposure control was used as a dose optimization technique for this examination. CONTRAST TYPE/DOSE: 100mL of IOVERSOL 350 MG IODINE/ML INTRAVENOUS SYRINGE injected via intravenous COMPARISON: None available REFERENCE: Per ACR white paper recommendations, unless otherwise specified no follow-up imaging is recommended for incidental renal and adrenal lesions per consensus recommendations based on imaging criteria. Further lab evaluation could be pursued based on clinical findings. FINDINGS: LOWER CHEST: No significant pulmonary abnormalities. No effusion. LIVER: Normal size. No identified cystic or solid masses. GALLBLADDER: Normally distended BILE DUCTS: No intrahepatic or extrahepatic ductal dilatation. SPLEEN: Normal size. No focal lesions. PANCREAS: No identified cystic or solid masses. No significant calcifications. No adjacent inflammation or peripancreatic fluid collections. Pancreatic duct not dilated. ADRENALS: Normal. KIDNEYS/URINARY TRACT: No identified significant cystic or solid masses. No visualized stones. No hydronephrosis or hydroureter. Symmetric enhancement. Urinary bladder is unremarkable. GI: No dilated bowel loops. No obvious wall thickening. Normal appendix. No significant diverticular disease. PERITONEUM: No ascites or free air. RETROPERITONEUM: Moderate-sized lymph nodes along the iliac deanne chains and inguinal regions. Smaller lymph nodes along the retroperitoneum. REPRODUCTIVE: Soft tissue thickening throughout the scrotum hydroceles. This becomes contiguous with additional swelling extending towards the peroneal surface posteriorly. Subcutaneous oval lesion measures 7.5 by 4.9 cm suggesting a subcutaneous fluid collection or abscess. Central lucencies consistent with air collections. This could represent a cellulitis with abscess. However, consider necrotizing fasciitis/Yamila's gangrene. VASCULATURE: No abdominal aortic aneurysm. MUSCULOSKELETAL: No significant abnormality. OTHER: No other abnormality. IMPRESSION: Extensive soft tissue thickening throughout the scrotum extending towards the peroneal surface posteriorly. 7.5 cm subcutaneous fluid collection with air collections suggesting abscess. However, consider necrotizing fasciitis/Yamila's gangrene. Moderate-sized lymph nodes along the iliac deanne chains and inguinal regions likely reactive in nature. THIS IS AN ELECTRONICALLY VERIFIED FINAL REPORT 03/06/2023 6:46 AM - Electronically signed by Wander García M.D. RB: SALLY Report ID: [id number] Reading Location: [id number] Assessment and Plan: Rene Hyatt is a 42 y.o. male with a perineal fluid collection/abscess and likely perineal/scrotal cellulitis, gas on CT scan. Explored yesterday in OR and was found to have significant purulent fluid and necrotic tissue in perineum with anterior extension to inguinal canal, posteriorly extending to rectum without involvement Plan: - To OR for repeat EUA and debridement this AM - Appreciate excellent ICU care Thank you for allowing us to participate in the care of this patient. Please do not hesitate to contact us by paging the adoption worker urology resident. Adelita Benoit MD 03/07/23 Urology Resident Cosigned by Arnaldo Robles MD at 03/07/2023 8:17 AM CDT Associated attestation - Arnaldo Robles MD - 03/07/2023 8:17 AM CDT I have seen and examined the patient on 03/07/23. I agree with the findings and plan of care as documented in the resident's/fellow's note. Yamila's Plan for OR for further debridement, dressing change and possible wound vac placement Pain control IV abx. Glycemic control per ICU insulin gtt * Plan of Care - Jordi Grewal RN - 03/06/2023 8:45 PM CDT Goals: Clinical Goals for the Shift: admission Summary: Problem: Health Behavior: Goal: Understanding of discharge needs will improve Outcome: Not Progressing Problem: Activity: Goal: Mobility will improve Outcome: Not Progressing Problem: Lack of Knowledge: Goal: Understanding of ways to prevent future skin breakdown will improve Outcome: Not Progressing Goal: Ability to identify appropriate dietary choices will improve Outcome: Not Progressing Problem: Nutritional: Goal: Dietary intake will improve Outcome: Not Progressing Goal: Ability to maintain a balanced intake and output will improve Outcome: Not Progressing Problem: Skin Integrity: Goal: Risk for impaired skin integrity will decrease Outcome: Not Progressing Goal: Ability to demonstrate warm and dry skin will improve Outcome: Not Progressing Goal: Circulation will improve to fullest extent possible Outcome: Not Progressing Problem: Lack of Knowledge: Goal: Ability to develop a pain control plan will improve Outcome: Not Progressing Goal: Ability to identify pain intensity on a pain scale and rate it consistently will improve Outcome: Not Progressing Goal: Ability to notify healthcare provider of pain before it becomes unmanageable or unbearable will improve Outcome: Not Progressing * Op Note - Pilar Johnson MD - 03/06/2023 3:50 PM CDT Operative Report SURGEON: Pilar Johnson MD SURGICAL TEAM: Surgeon(s) and Role: Panel 1: * Pilar Johnson MD - Primary * Jamari Whitfield MD - Resident - Assisting Panel 2: * Alexander Cloud MD - Primary * Bijan Villafuerte MD - Resident - Assisting DATE OF SURGERY : 03/06/2023 PREOPERATIVE DIAGNOSIS: Pre-op Diagnosis * Perineal abscess [L02.215] POSTOPERATIVE DIAGNOSIS: Post-op Diagnosis * Perineal abscess [L02.215] PROCEDURE: INCISION AND DRAINAGE, perineum, EXAM UNDER ANESTHESIA Debridement of Yamila's gangrene, excision of necrotic tissue Wound was 18 X 5 X 7 cm at the conclusion of procedure ANESTHESIA: General INDICATION FOR PROCEDURE: 42 year old male who presented with worsening scrotal and perineal pain. He had a CT scan which showed a perineal fluid collection with air present. He was counseled on options and agreed to go to the OR for a combo case with general surgery and urology for perineal abscess drainage. OPERATIVE NOTE: Patient was prepped and draped in dorsal lithotomy position. A 16 Fr Min catheter was placed with10 cc in the balloon. His bladder was emptied and then the catheter was clamped. We used an ultrasound to locate the fluid pocket in the perineum. An incision was then made along the median raphe in the perineum down to the abscess, purulent fluid and necrotic tissue was encountered. Fluid, and tissue was sent for culture. We then began excision the necrotic tissue, it was found to extend down onthe patient's right side towards the anus, it also tracked up to the scrotum, and into the inguinalcanals. The left testicle was seen and was noted to be uninvolved. All necrotic appearing tissue was excised and then hemostasis was achieved. General surgery was present and examined the wound, and did a KARLA and confirmed there was not a connection. The wound was then irrigated thoroughly and thenpacked with 4 Dakin's soaked Kerlix. To keep the Kerlix in place given the large wound, 2 0 silk stiches were used to keep the Kerlix in place. Patient was then awoken from anesthesia and will be taken care of in the ICU overnight. We will plan for take back in 24-48 hours. Estimated Blood Loss: 30 cc Blood/Blood Products Transfused: none Specimens: Perineal abscess fluid for culture, perineal tissue for culture Complications: None Condition on Discharge from the operating room was stable Pilar Johnson MD Date: 03/06/2023 Time: 6:00 PM TEACHING ATTESTATION : I was present and directly participated in the entire procedure (including opening and closing). Followup Appointments: No future appointments. * Op Note - Alexander Cloud MD - 03/06/2023 3:50 PM CDT ACUTE AND CRITICAL CARE SURGERY OPERATIVE REPORT Patient:Rene Hyatt : 1980 Surgeon: Alexander Cloud MD * Bijan Villafuerte MD - Resident - Assisting DATE OF SURGERY : 03/06/2023 Preoperative Diagnosis: Yamila's gangrene Postoperative Diagnosis: Yamila's gangrene Procedure(s): Intraoperative consult Operative Findings: No debridement required around rectum. Rectum intact. Anesthesia: General Anesthesia Indication: The patient is a 42 y.o. male who presented with Yamila's gangrene. Urology asked us to be involved in case there was further debridement needed. We discussed the risks and benefits of further debridement with the patient on top of what urology was doing. We we obtained informed consent for any portions we may end up providing Description of Procedure: Please see urology note for any details of the operation is a performed this operation including blood loss and findings. After Urology had debrided a large area around the scrotum we are asked to look at the area around the rectum. There was nothing for us to debride. A digital rectal exam was performed showing no rectal injury. The rest of the operation was left urology to complete. As the attending surgeon, I was present and helped perform the portions I dictated. Alexander Cloud MD Section of Acute and Critical Care Surgery Department of Surgery [facility] [phone] * Brief Op Note - Bijan Villafuerte MD - 03/06/2023 3:50 PM CDT Operative Progress Note Surgical Team: Surgeon(s) and Role: Panel 1: * Pilar Johnson MD - Primary * Jamari Whitfield MD - Resident - Assisting * Adelita Benoit MD - Resident - Assisting Panel 2: * Alexander Cloud MD - Primary * Bijan Villafuerte MD - Resident - Assisting Anesthesiologist: Gabriela Doyle MD PhD OUTCOMES SPECIALIST: Murray Chacon CRNA Dog Licenser: Theodora Sarmiento MD Human Resources Clerk: Nicole Veloz RN Scrub: Deanna Crocker [facility] Human Resources Clerk: Rhoda Almaguer RN Human Resources Clerk Second: Cookie Boston RN DATE OF SURGERY : 03/06/2023 Preoperative Diagnosis: Pre-op Diagnosis * Perineal abscess [L02.215] Postoperative Diagnosis: Post-op Diagnosis * Perineal abscess [L02.215] Procedure(s): Procedure(s) (LRB): INCISION AND DRAINAGE, perineum (N/A) EXAM UNDER ANESTHESIA (N/A) INCISION AND DRAINAGE, perineum (N/A) Operative Findings: - Co-operation with urology for perineal and scrotal abscess with significant drainage of pus and excision of nonviable and infected tissue with cultures of tissue and abscess fluid sent - Perineal wound not continuous with rectum, intra-op KARLA with no apparent communication of wound base to rectum Estimated Blood Loss: 30 mL Intraoperative Fluids: 1800 mls Specimens: No specimen collected in procedure Implants: Nothing was implanted during the procedure Blood/Blood Products Transfused: 0 mls Complications: None Condition on Discharge from the operating room was stable Bijan Villafuerte MD Date: 03/06/2023 Time: 6:32 PM Cosigned by Alexander Cloud MD at 03/09/2023 11:02 AM CDT * ED Re-evaluation Note - Rizwan Wilkinson MD - 03/06/2023 3:26 PM CDT ED Re-evaluation TRANSITION OF CARE: I, Rizwan Wilkinson MD, am taking signout from the resident under supervision of the attending. I have reviewed all pertinent vital signs, allergies, and history available in the chart. Summary: 42 y.o. male with no notable medical history, but with likely diabetes who presents with scrotal swelling, potential Yamila's gangrene. Pending: Admission to medicine, pending OR for surgical management. Dispo: Admission to medicine. ED Course as of 03/06/23 1613 Time: 03/06 1129 Comment: Urology was consulted. They think it might not be yamila, but rather just the abscess. They will come and evaluate the patient. He will require OR in any case to drain the abscess. Surgeryand Urology will continue to follow. We also consulted podiatry and ordered arterial duplex BLE andBLE doppler for his left foot ulcers. By: Anil Birmingham MD Time: 03/06 3028 Comment: Urology examined patient, assessment is that it is less likely yamila's, the gas on CT seems to be within the abscess. They will coordinate with general surgery, he will require OR for drainage of the abscess, and if there is any signs of gangrene, they will proceed with debridement. Plan is to admit to surgery after that, but we have yet to discuss dispo plan with surgery. Podiatry will see patient once he is on the floor. By: Anil Birmingham MD Time: 03/068 Comment: SOCIAL: patient's mother is paraplegic, patient is worried about her and does not have a cellphone. I called her and updated her on her son's situation, stating that he will require OR. She is worried and would like us to update her on any advancement that occurs, especially post-op. Contact info: [place]: [phone] By: Anil Birmingham MD Time: 03/06 1155 Comment: TEACH RESIDENT NOTE: 42 M no sig pmh transferred from [place] for cf Yamila's gangrene. First noted perineal discomfort progressed to scrotal swelling + pain over last two weeks. Presented to [place] this morning with WBC 17.3 elevated CRP/ESR, glucose 300s (not diagnosed diabetic), CT concerning for scrotal abscess vs NSTI. Start on vanc/cefe/clinda and received 3L IVF prior to transfer. Here AOx3 c/o scrotal pain, also noted deep ulcers x2 to L foot which probe to bone (plain films obtained at [place]). Will provide pain control, continue abx, discuss with surgery and urology, engage podiatry for inpatient foot wound care. By: Elisabeth Ferrara MD Time: 03/06 1314 Comment: Patient has been evaluated by both surgery and urology, they will operate. They recommend admission to medicine for further workup and management of his possible diabetes and foot ulcer. Podiatry will follow as well upon admission. By: Anil Birmingham MD Time: 03/06 1611 Comment: Urology requested control of blood glucose before surgery. Patient was at US at the time, and will be sent to OR. As such, no insulin was given. BG should be controlled by the surgical/urology team prior to surgery By: Anil Birmingham MD Loughman, Blaise Jackson, MD Resident 03/06/23 1528 * ED Procedure Note - Carolee Daly MD - 03/06/2023 11:49 AM CDT Associated Order(s): Critical Care Procedure Critical Care Performed by: Carolee Daly MD Authorized by: Carolee Daly MD Critical care provider statement: As reflected in the history, physical exam, orders, notes, and/or MDM, I was personally present while the patient was critically ill and provided critical care services for 40 minutes, excluding timeinvolved in separately billable procedures. Critical care was necessary to treat or prevent imminent or life- threatening deterioration of the following condition(s): sepsis, skin/soft tissue infection and severe genitourinary infection Critical care was time spent by me providing the following: continuous telemetry, continuous pulse oximetry, interpretation of bedside monitors, imaging, and arterial/venous lab draws, serial bedside patient exams and serial laboratory checks review prior cultures/records, obtain appropriate cultures and empiric broad coverage antibiotics I provided emergent necessary critical care medicine services to this patient. I ordered and reviewed test results and/or imaging studies. I spent time discussing the management of this critically ill patient with consultants and the medical staff. I spent time discussing the management and therapeutic options for this critically ill patient with the patient themselves or with the appropriate designated surrogate decision-maker. I spent time documenting in the medical record. Carolee Daly MD 03/06/23 1150 * ED Pre-Arrival Note - Laquita Coleman RN - 03/06/2023 7:56 AM CDT Pre-Arrival Note Pt coming from [facility] in [place] accepted by Dr. Ramirez from urology. Pt has swelling to scrotum. CT shows abscess with air, consistent with Yamila's Gangrene. Report called to Dr. Ferrara and accepted to ED. Pt has received Vanc, Cefepime and Clinda. Laquita Coleman RN documented in this encounter Plan of Treatment Pending Results Name Type Priority Associated Diagnoses Date /Time Type and screen Lab Timed 9:15 PM CDT Hemoglobin A1c Lab STAT 03/06/2023 9:15 PM CDT Lipid panel Lab STAT 03/06/2023 9: 15 PM CDT Basic metabolic panel Lab Routine 7:57 AM CDT Vitamin D 25 hydroxy Lab Routine 06/2022 8:59 PM CDT Hepatic function panel Lab Routine 10:10 PM CDT Scheduled Orders Name Type Priority Associated Diagnoses Orde r Schedule Hemoglobin A1c Lab STAT Once for 1 Occurrences starting 03/06/2023 until 03/06/2023 Lipid panel Lab STAT Once for 1 Oc currences starting 03/06/2023 until 03/06/2023 Basic metabolic panel Lab Routine Onc e for 1 Occurrences starting 03/07/2023 until 03/07/2023 Vitamin D 25 hydroxy Lab Routine Once for 1 Occurrences starting 03/08/2023 until 03/08/2023 Hepatic function panel Lab Routine On ce for 1 Occurrences starting 03/17/2023 until 03/17/2023 documented as of this encounter Procedures Procedure Name Priority Date/Time Associated Diagnosis Comments POCT GLUCOSE DEVICE Routine 03/25/2023 1 2:14 PM CDT POCT GLUCOSE DEVICE Routine 03/25/2023 8 :19 AM CDT POCT GLUCOSE DEVICE Routine 03/25/2023 4 :51 AM CDT POCT GLUCOSE DEVICE Routine 03/25/2023 1 :36 AM CDT POCT GLUCOSE DEVICE Routine 03/24/2023 9 :47 PM CDT POCT GLUCOSE DEVICE Routine 03/24/2023 4 :50 PM CDT POCT GLUCOSE DEVICE Routine 03/24/2023 1 :22 PM CDT POCT GLUCOSE DEVICE Routine 03/24/2023 8 :38 AM CDT POCT GLUCOSE DEVICE Routine 03/23/2023 8 :35 PM CDT POCT GLUCOSE DEVICE Routine 03/23/2023 5 :14 PM CDT POCT GLUCOSE DEVICE Routine 03/23/2023 1 2:23 PM CDT POCT GLUCOSE DEVICE Routine 03/23/2023 9 :02 AM CDT EGFR Routine 03/22/2023 11:01 PM CDT DIFFERENTIAL AUTO Routine 03/22/2023 11: 01 PM CDT CBC WITH AUTO DIFFERENTIAL Routine 03/22/2023 11:01 PM CDT BASIC METABOLIC PANEL Routine 03/22/2023 11:01 PM CDT POCT GLUCOSE DEVICE Routine 03/22/2023 8 :13 PM CDT POCT GLUCOSE DEVICE Routine 03/22/2023 5 :04 PM CDT POCT GLUCOSE DEVICE Routine 03/22/2023 2 :09 PM CDT POCT GLUCOSE DEVICE Routine 03/22/2023 8 :13 AM CDT EGFR Routine 03/21/2023 10:43 PM CDT DIFFERENTIAL AUTO Routine 03/21/2023 10: 43 PM CDT CBC WITH AUTO DIFFERENTIAL Routine 03/21/2023 10:43 PM CDT HC ANTIBODY SCREEN RBC Timed 03/21/2023 10:43 PM CDT BASIC METABOLIC PANEL Routine 03/21/2023 10:43 PM CDT POCT GLUCOSE DEVICE Routine 03/21/2023 8 :50 PM CDT POCT GLUCOSE DEVICE Routine 03/21/2023 5 :40 PM CDT POCT GLUCOSE DEVICE Routine 03/21/2023 1 2:03 PM CDT POCT GLUCOSE DEVICE Routine 03/21/2023 8 :33 AM CDT EGFR Routine 03/20/2023 10:55 PM CDT DIFFERENTIAL AUTO Routine 03/20/2023 10: 55 PM CDT CBC WITH AUTO DIFFERENTIAL Routine 03/20/2023 10:55 PM CDT BASIC METABOLIC PANEL Routine 03/20/2023 10:55 PM CDT POCT GLUCOSE DEVICE Routine 03/20/2023 9 :00 PM CDT POCT GLUCOSE DEVICE Routine 03/20/2023 5 :37 PM CDT POCT GLUCOSE DEVICE Routine 03/20/2023 1 2:24 PM CDT POCT GLUCOSE DEVICE Routine 03/20/2023 8 :23 AM CDT POCT GLUCOSE DEVICE Routine 03/19/2023 9 :14 PM CDT POCT GLUCOSE DEVICE Routine 03/19/2023 6 :00 PM CDT POCT GLUCOSE DEVICE Routine 03/19/2023 2 :06 PM CDT POCT GLUCOSE DEVICE Routine 03/19/2023 8 :29 AM CDT EGFR Routine 03/18/2023 10:07 PM CDT DIFFERENTIAL AUTO Routine 03/18/2023 10: 07 PM CDT CBC WITH AUTO DIFFERENTIAL Routine 03/18/2023 10:07 PM CDT HC ANTIBODY SCREEN RBC Timed 03/18/2023 10:07 PM CDT BASIC METABOLIC PANEL Routine 03/18/2023 10:07 PM CDT POCT GLUCOSE DEVICE Routine 03/18/2023 9 :59 PM CDT POCT GLUCOSE DEVICE Routine 03/18/2023 6 :11 PM CDT POCT GLUCOSE DEVICE Routine 03/18/2023 1 :17 PM CDT POCT GLUCOSE DEVICE Routine 03/18/2023 8 :32 AM CDT EGFR Routine 03/17/2023 10:10 PM CDT DIFFERENTIAL AUTO Routine 03/17/2023 10: 10 PM CDT CBC WITH AUTO DIFFERENTIAL Routine 03/17/2023 10:10 PM CDT HEPATIC FUNCTION PANEL Routine 03/17/2023 10:10 PM CDT BASIC METABOLIC PANEL Routine 03/17/2023 10:10 PM CDT POCT GLUCOSE DEVICE Routine 03/17/2023 9 :22 PM CDT POCT GLUCOSE DEVICE Routine 03/17/2023 6 :24 PM CDT POCT GLUCOSE DEVICE Routine 03/17/2023 1 2:47 PM CDT POCT GLUCOSE DEVICE Routine 03/17/2023 9 :09 AM CDT EGFR Routine 03/16/2023 8:56 PM CDT DIFFERENTIAL AUTO Routine 03/16/2023 8:5 6 PM CDT CBC WITH AUTO DIFFERENTIAL Routine 03/16/2023 8:56 PM CDT BASIC METABOLIC PANEL Routine 03/16/2023 8:56 PM CDT POCT GLUCOSE DEVICE Routine 03/16/2023 8 :47 PM CDT POCT GLUCOSE DEVICE Routine 03/16/2023 6 :21 PM CDT ALBUMIN CREATININE RATIO, URINE Routine 03/16/2023 4:21 PM CDT POCT GLUCOSE DEVICE Routine 03/16/2023 2 :19 PM CDT POCT GLUCOSE DEVICE Routine 03/16/2023 9 :06 AM CDT POCT GLUCOSE DEVICE Routine 03/15/2023 9 :01 PM CDT EGFR Routine 03/15/2023 7:38 PM CDT DIFFERENTIAL AUTO Routine 03/15/2023 7:3 8 PM CDT CBC WITH AUTO DIFFERENTIAL Routine 03/15/2023 7:38 PM CDT HC ANTIBODY SCREEN RBC Timed 03/15/2023 7:38 PM CDT BASIC METABOLIC PANEL Routine 03/15/2023 7:38 PM CDT POCT GLUCOSE DEVICE Routine 03/15/2023 5 :06 PM CDT POCT GLUCOSE DEVICE Routine 03/15/2023 1 2:14 PM CDT POCT GLUCOSE DEVICE Routine 03/15/2023 7 :35 AM CDT POCT GLUCOSE DEVICE Routine 03/14/2023 7 :52 PM CDT EGFR Routine 03/14/2023 7:41 PM CDT DIFFERENTIAL AUTO Routine 03/14/2023 7:4 1 PM CDT CBC WITH AUTO DIFFERENTIAL Routine 03/14/2023 7:41 PM CDT BASIC METABOLIC PANEL Routine 03/14/2023 7:41 PM CDT POCT GLUCOSE DEVICE Routine 03/14/2023 5 :44 PM CDT POCT GLUCOSE DEVICE Routine 03/14/2023 1 :43 PM CDT POCT GLUCOSE DEVICE Routine 03/14/2023 8 :38 AM CDT EGFR Routine 03/13/2023 10:14 PM CDT DIFFERENTIAL AUTO Routine 03/13/2023 10: 14 PM CDT CBC WITH AUTO DIFFERENTIAL Routine 03/13/2023 10:14 PM CDT BASIC METABOLIC PANEL Routine 03/13/2023 10:14 PM CDT POCT GLUCOSE DEVICE Routine 03/13/2023 7 :53 PM CDT POCT GLUCOSE DEVICE Routine 03/13/2023 5 :37 PM CDT XR WRIST LEFT 3 OR MORE VIEWS IP Routine 03/13/2023 5:00 PM CDT POCT GLUCOSE DEVICE Routine 03/13/2023 1 :26 PM CDT POCT GLUCOSE DEVICE Routine 03/13/2023 1 2:16 PM CDT POCT GLUCOSE DEVICE Routine 03/13/2023 8 :26 AM CDT EGFR Routine 03/12/2023 10:44 PM CDT DIFFERENTIAL AUTO Routine 03/12/2023 10: 44 PM CDT CBC WITH AUTO DIFFERENTIAL Routine 03/12/2023 10:44 PM CDT HC ANTIBODY SCREEN RBC Timed 03/12/2023 10:44 PM CDT BASIC METABOLIC PANEL Routine 03/12/2023 10:44 PM CDT POCT GLUCOSE DEVICE Routine 03/12/2023 8 :38 PM CDT POCT GLUCOSE DEVICE Routine 03/12/2023 4 :56 PM CDT POCT GLUCOSE DEVICE Routine 03/12/2023 3 :12 PM CDT POCT GLUCOSE DEVICE Routine 03/12/2023 1 :22 PM CDT CLOSURE WOUND - ABDOMEN 03/12/2023 10:23 AM CDT Perineal abscess Case Notes 03/11- Moved case up per [facility] via phone call.EF10/4- Missing dpc email sent to Expert [employer]. Special Needs pulsavac, irrigant DEBRIDEMENT WOUND 03/12/2023 10: 23 AM CDT Perineal abscess Case Notes 03/11- Moved case up per [facility] via phone call.EF10/4- Missing dpc email sent to [employer]. Special Needs pulsavac, irrigant POCT GLUCOSE DEVICE Routine 03/12/2023 9 :26 AM CDT POCT GLUCOSE DEVICE Routine 03/12/2023 7 :43 AM CDT EGFR Routine 03/11/2023 10:31 PM CDT DIFFERENTIAL AUTO Routine 03/11/2023 10: 31 PM CDT CBC WITH AUTO DIFFERENTIAL Routine 03/11/2023 10:31 PM CDT BASIC METABOLIC PANEL Routine 03/11/2023 10:31 PM CDT POCT GLUCOSE DEVICE Routine 03/11/2023 8 :17 PM CDT POCT GLUCOSE DEVICE Routine 03/11/2023 5 :25 PM CDT POCT GLUCOSE DEVICE Routine 03/11/2023 1 1:51 AM CDT POCT GLUCOSE DEVICE Routine 03/11/2023 7 :38 AM CDT EGFR Routine 03/10/2023 10:22 PM CDT CBC WITHOUT DIFFERENTIAL Routine 03/10/2023 10:22 PM CDT PHOSPHORUS Routine 03/10/2023 10:22 PM CDT MAGNESIUM Routine 03/10/2023 10:22 PM CDT BASIC METABOLIC PANEL Routine 03/10/2023 10:22 PM CDT POCT GLUCOSE DEVICE Routine 03/10/2023 1 0:07 PM CDT POCT GLUCOSE DEVICE Routine 03/10/2023 5 :03 PM CDT POCT GLUCOSE DEVICE Routine 03/10/2023 1 1:47 AM CDT POCT GLUCOSE DEVICE Routine 03/10/2023 8 :28 AM CDT TISSUE AEROBIC AND ANAEROBIC CULTURE AND GRAM STAIN Routine 03/10/2023 8:23 AM CDT AEROBIC AND ANAEROBIC CULTURE AND GRAM STAIN Routine 03/10/2023 8:21 AM CDT CRITICAL CARE Routine 03/10/2023 7:32 AM CDT Scrotal abscess DEBRIDEMENT WOUND 03/10/2023 7:2 5 AM CDT Perineal abscess Special Needs Irrigant, Vac supplies DIFFERENTIAL AUTO STAT 03/10/2023 12: 14 AM CDT CBC WITH AUTO DIFFERENTIAL STAT 03/10/2023 12:14 AM CDT DIABETES MELLITUS TYPE 1 EVALUATION Timed 03/09/2023 9:42 PM CDT EGFR Timed 03/09/2023 9:42 PM CDT PHOSPHORUS Timed 03/09/2023 9:42 PM CDT PTH Timed 03/09/2023 9:42 PM CDT MAGNESIUM Timed 03/09/2023 9:42 PM CDT COMPREHENSIVE METABOLIC PANEL Timed 03/09/2023 9:42 PM CDT POCT GLUCOSE DEVICE Routine 03/09/2023 9 :15 PM CDT CALCIUM,IONIZED, WHOLE BLOOD Timed 03/09/2023 9:07 PM CDT CRITICAL CARE Routine 03/09/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 03/09/2023 4 :55 PM CDT POCT GLUCOSE DEVICE Routine 03/09/2023 1 1:26 AM CDT CRITICAL CARE Routine 03/09/2023 7:52 AM CDT Scrotal abscess POCT GLUCOSE DEVICE Routine 03/09/2023 7 :34 AM CDT POCT GLUCOSE DEVICE Routine 03/09/2023 3 :29 AM CDT POCT GLUCOSE DEVICE Routine 03/09/2023 1 2:06 AM CDT CRITICAL CARE Routine 03/08/2023 10:30 PM CDT Perineal abscess EGFR Routine 03/08/2023 8:59 PM CDT VITAMIN D 25 HYDROXY Routine 03/08/2023 8:59 PM CDT CBC WITHOUT DIFFERENTIAL Routine 03/08/2023 8:59 PM CDT BASIC METABOLIC PANEL Routine 03/08/2023 8:59 PM CDT POCT GLUCOSE DEVICE Routine 03/08/2023 7 :34 PM CDT POCT GLUCOSE DEVICE Routine 03/08/2023 4 :39 PM CDT POCT GLUCOSE DEVICE Routine 03/08/2023 1 2:03 PM CDT POCT GLUCOSE DEVICE Routine 03/08/2023 9 :58 AM CDT POCT GLUCOSE DEVICE Routine 03/08/2023 9 :06 AM CDT CRITICAL CARE Routine 03/08/2023 8:55 AM CDT Scrotal abscess POCT GLUCOSE DEVICE Routine 03/08/2023 8 :03 AM CDT POCT GLUCOSE DEVICE Routine 03/08/2023 6 :59 AM CDT DIABETES MELLITUS TYPE 1 EVALUATION Routine 03/08/2023 5:31 AM CDT GLUTAMIC ACID DECARBOXYLASE Routine 03/08/2023 5:31 AM CDT C-PEPTIDE Routine 03/08/2023 5:31 AM CDT VANCOMYCIN LEVEL RANDOM Timed 03/08/2023 5:31 AM CDT POCT GLUCOSE DEVICE Routine 03/08/2023 5 :19 AM CDT POCT GLUCOSE DEVICE Routine 03/08/2023 2 :56 AM CDT POCT GLUCOSE DEVICE Routine 03/08/2023 1 2:51 AM CDT POCT GLUCOSE DEVICE Routine 03/07/2023 1 0:43 PM CDT CRITICAL CARE Routine 03/07/2023 9:04 PM CDT Scrotal abscess Perineal abscess POCT GLUCOSE DEVICE Routine 03/07/2023 8 :29 PM CDT CALCIUM,IONIZED, WHOLE BLOOD STAT 03/07/2023 8:27 PM CDT EGFR STAT 03/07/2023 8:27 PM CDT DIFFERENTIAL AUTO STAT 03/07/2023 8:2 7 PM CDT CBC WITH AUTO DIFFERENTIAL STAT 03/07/2023 8:27 PM CDT PHOSPHORUS STAT 03/07/2023 8:27 PM CDT MAGNESIUM STAT 03/07/2023 8:27 PM CDT COMPREHENSIVE METABOLIC PANEL STAT 03/07/2023 8:27 PM CDT POCT GLUCOSE DEVICE Routine 03/07/2023 7 :08 PM CDT POCT GLUCOSE DEVICE Routine 03/07/2023 5 :08 PM CDT EGFR Timed 03/07/2023 4:49 PM CDT BETA-HYDROXYBUTYRATE Routine 03/07/2023 4:49 PM CDT PHOSPHORUS Timed 03/07/2023 4:49 PM CDT MAGNESIUM Timed 03/07/2023 4:49 PM CDT BASIC METABOLIC PANEL Timed 03/07/2023 4:49 PM CDT POCT GLUCOSE DEVICE Routine 03/07/2023 4 :05 PM CDT POCT GLUCOSE DEVICE Routine 03/07/2023 3 :00 PM CDT POCT GLUCOSE DEVICE Routine 03/07/2023 1 :55 PM CDT EGFR Timed 03/07/2023 12:20 PM CDT POCT GLUCOSE DEVICE Routine 03/07/2023 1 2:20 PM CDT PHOSPHORUS Timed 03/07/2023 12:20 PM CDT MAGNESIUM Timed 03/07/2023 12:20 PM CDT BASIC METABOLIC PANEL Timed 03/07/2023 12:20 PM CDT POCT GLUCOSE DEVICE Routine 03/07/2023 1 0:43 AM CDT POCT GLUCOSE DEVICE Routine 03/07/2023 9 :35 AM CDT DEBRIDEMENT WOUND 03/07/2023 8:5 7 AM CDT Perineal abscess EXAM UNDER ANESTHESIA 03/07/2023 8:57 AM CDT Perineal abscess EGFR Routine 03/07/2023 7:57 AM CDT BETA-HYDROXYBUTYRATE Routine 03/07/2023 7:57 AM CDT POCT GLUCOSE DEVICE Routine 03/07/2023 7 :57 AM CDT INSULIN ANTIBODY Routine 03/07/2023 7:57 AM CDT C-PEPTIDE Routine 03/07/2023 7:57 AM CDT BASIC METABOLIC PANEL Routine 03/07/2023 7:57 AM CDT CRITICAL CARE Routine 03/07/2023 7:06 AM CDT Scrotal abscess POCT GLUCOSE DEVICE Routine 03/07/2023 6 :55 AM CDT POCT GLUCOSE DEVICE Routine 03/07/2023 5 :59 AM CDT POCT GLUCOSE DEVICE Routine 03/07/2023 3 :53 AM CDT POCT GLUCOSE DEVICE Routine 03/07/2023 1 :57 AM CDT POCT GLUCOSE DEVICE Routine 03/07/2023 1 :01 AM CDT POCT GLUCOSE DEVICE Routine 03/06/2023 1 1:53 PM CDT POCT GLUCOSE DEVICE Routine 03/06/2023 1 0:56 PM CDT POCT GLUCOSE DEVICE Routine 03/06/2023 9 :54 PM CDT LACTATE STAT 03/06/2023 9:15 PM CDT EGFR STAT 03/06/2023 9:15 PM CDT DIFFERENTIAL AUTO STAT 03/06/2023 9:1 5 PM CDT CALCIUM, IONIZED STAT 03/06/2023 9:15 PM CDT BETA-HYDROXYBUTYRATE STAT 03/06/2023 9:15 PM CDT CBC WITH AUTO DIFFERENTIAL STAT 03/06/2023 9:15 PM CDT PHOSPHORUS STAT 03/06/2023 9:15 PM CDT MAGNESIUM STAT 03/06/2023 9:15 PM CDT HEMOGLOBIN A1C STAT 03/06/2023 9:15 PM CDT LIPID PANEL STAT 03/06/2023 9:15 PM CDT COMPREHENSIVE METABOLIC PANEL STAT 03/06/2023 9:15 PM CDT POCT GLUCOSE DEVICE Routine 03/06/2023 8 :59 PM CDT POCT GLUCOSE DEVICE Routine 03/06/2023 7 :56 PM CDT CRITICAL CARE Routine 03/06/2023 7:17 PM CDT POCT GLUCOSE DEVICE Routine 03/06/2023 6 :52 PM CDT POCT GLUCOSE DEVICE Routine 03/06/2023 6 :17 PM CDT POCT GLUCOSE DEVICE Routine 03/06/2023 5 :40 PM CDT AEROBIC AND ANAEROBIC CULTURE AND GRAM STAIN Routine 03/06/2023 5:26 PM CDT TISSUE AEROBIC AND ANAEROBIC CULTURE AND GRAM STAIN Routine 03/06/2023 5:18 PM CDT AEROBIC AND ANAEROBIC CULTURE AND GRAM STAIN Routine 03/06/2023 5:17 PM CDT INCISION AND DRAINAGE 03/06/2023 4:26 PM CDT Perineal abscess Case Notes [phone] Special Needs irrigant, ultrasound w abdominal probe, lithotomy EXAM UNDER ANESTHESIA 03/06/2023 4:26 PM CDT Perineal abscess Case Notes [phone] Special Needs irrigant, ultrasound w abdominal probe, lithotomy INCISION AND DRAINAGE 03/06/2023 4:26 PM CDT Perineal abscess Case Notes [phone] Special Needs irrigant, ultrasound w abdominal probe, lithotomy POCT GLUCOSE DEVICE Routine 03/06/2023 4 :08 PM CDT VL US ARTERIAL DUPLEX LOWER EXTREMITY BILATERAL ED 03/06/2023 3:21 PM CDT US ARTERIAL DOPPLER LOWER EXTREMITY BILATERAL ED Urgent/IP Urgent 03/06/2023 3:14 PM CDT B CHECK SAMPLE STAT 03/06/2023 12:17 PM CDT MT CRITICAL CARE ILL/INJURED PATIENT INIT 30-74 MIN Routine 03/06/2023 11:49 AM CDT SEPSIS LACTATE WITH REFLEX STAT 03/06/2023 11:02 AM CDT PROTIME-INR STAT 03/06/2023 11:02 AM CDT HC ANTIBODY SCREEN RBC Timed 03/06/2023 11:02 AM CDT documented in this encounter Results * (ABNORMAL) POCT glucose (03/25/2023 12:14 PM CDT) Glucose, POC 221(H) 70 - 199 mg/dL Blood 03/25/2023 12:1 4 PM CDT 03/25/2023 12:14 PM CDT us Lamonte Guzmán MD LAB POCT ORDERABLES - DEVICE Fi nal Result Performing Organization Address [facility] Co de Phone Number [facility] [place] [address] * POCT glucose (03/25/2023 8:19 AM CDT) Glucose, POC 187 70 - 199 mg/dL Blood 03/25/2023 8:19 AM CDT 03/25/2023 8:19 AM CDT us Lamonte Guzmán MD LAB POCT ORDERABLES - DEVICE Fi nal Result Performing Organization Address [facility] Co de Phone Number [facility] [place] [address] * POCT glucose (03/25/2023 4:51 AM CDT) Glucose, POC 198 70 - 199 mg/dL Blood 03/25/2023 4:51 AM CDT 03/25/2023 4:51 AM CDT Lamonte Guzmán MD LAB POCT ORDERABLES - DEVICE Fi nal Result Performing Organization Address [facility] de Phone Number [facility] [place] [address] * POCT glucose (03/25/2023 1:36 AM CDT) Glucose, POC 192 70 - 199 mg/dL Blood 03/25/2023 1:36 AM CDT 03/25/2023 1:36 AM CDT Lamonte Guzmán MD LAB POCT ORDERABLES - DEVICE Fi nal Result Performing Organization Address [facility] de Phone Number [facility] [place] [address] * POCT glucose (03/24/2023 9:47 PM CDT) Glucose, POC 163 70 - 199 mg/dL Blood 03/24/2023 9:47 PM CDT 03/24/2023 9:47 PM CDT Lamonte Guzmán MD LAB POCT ORDERABLES - DEVICE Fi nal Result Performing Organization Address [facility] de Phone Number [facility] [place] [address] * POCT glucose (03/24/2023 4:50 PM CDT) Glucose, POC 155 70 - 199 mg/dL Blood 03/24/2023 4:50 PM CDT 03/24/2023 4:50 PM CDT Lamonte Guzmán MD LAB POCT ORDERABLES - DEVICE Fi nal Result Performing Organization Address [facility] Co de Phone Number [facility] [place] [address] * POCT glucose (03/24/2023 1:22 PM CDT) Glucose, POC 153 70 - 199 mg/dL Blood 03/24/2023 1:22 PM CDT 03/24/2023 1:22 PM CDT us Lamonte Guzmán MD LAB POCT ORDERABLES - DEVICE Fi nal Result Performing Organization Address [facility] de Phone Number [facility] [place] [address] * POCT glucose (03/24/2023 8:38 AM CDT) Glucose, POC 168 70 - 199 mg/dL Blood 03/24/2023 8:38 AM CDT 03/24/2023 8:38 AM CDT us Lamonte Guzmán MD LAB POCT ORDERABLES - DEVICE Fi nal Result Performing Organization Address [facility] de Phone Number [facility] [place] [address] * POCT glucose (03/23/2023 8:35 PM CDT) Glucose, POC 159 70 - 199 mg/dL Blood 03/23/2023 8:35 PM CDT 03/23/2023 8:35 PM CDT Lamonte Guzmán MD LAB POCT ORDERABLES - DEVICE Fi nal Result Performing Organization Address [facility] Co de Phone Number [facility] [place] [address] * POCT glucose (03/23/2023 5:14 PM CDT) Glucose, POC 148 70 - 199 mg/dL Blood 03/23/2023 5:14 PM CDT 03/23/2023 5:14 PM CDT Evy Chong MD LAB POCT ORDERA BLES - DEVICE Final Result Performing Organization Address [facility]/[place] [address] * POCT glucose (03/23/2023 12:23 PM CDT) Glucose, POC 178 70 - 199 mg/dL Blood 03/23/2023 12:2 3 PM CDT 03/23/2023 12:23 PM CDT Evy Chong MD LAB POCT ORDERA BLES - DEVICE Final Result Performing Organization Address [facility] [place] [address] * POCT glucose (03/23/2023 9:02 AM CDT) Glucose, POC 193 70 - 199 mg/dL Blood 03/23/2023 9:02 AM CDT 03/23/2023 9:02 AM CDT Evy Chong MD LAB POCT ORDERA BLES - DEVICE Final Result Performing Organization Address [facility]/ZIP Co de Phone Number [facility] [place] [address] * eGFR (03/22/2023 11:01 PM CDT) eGFR >90 90 - 130 mL/min/1. 73 m2 Comment: Interpretive Data Reference [...] Current interpretive data was last reviewed 2021. Blood 03/22/2023 11:0 1 PM CDT 03/23/2023 12:04 AM CDT Josephine JARAMILLO LAB BLOOD ORDERABLES Shilpi montano Result [facility] [place] [address] * (ABNORMAL) Differential, auto (03/22/2023 11:01 PM CDT) Neutrophil abs 3.9 1.7 - 6.5 K/cumm Imm gran abs 0.0 0.0 - 0.1 K/cumm [facility] Lymphocyte abs 2.7 0.8 - 3.3 K/cumm [facility] Monocyte abs 0.6 0.2 - 0.8 K/cumm [facility] Eosinophil abs 0.6(H) 0.0 - 0.5 K/cumm [facility] Basophil abs 0.0 0.0 - 0.1 K/cumm [facility] Neutrophil pct 49.0 % [facility] Comment: Interpretive Data Percent cell count reference ranges are not reported, since discordance with absolute values may lead to misinterpretation of CBC data. Current Interpretive Data was last revised on 2017. Imm gran pct 0.4 % [facility] Comment: Interpretive Data Percent cell count reference ranges are not reported, since discordance with absolute values may lead to misinterpretation of CBC data. Current Interpretive Data was last revised on 2017. Lymphocyte pct 34.2 % [facility] Comment: Interpretive Data Percent cell count reference ranges are not reported, since discordance with absolute values may lead to misinterpretation of CBC data. Current Interpretive Data was last revised on 2017. Monocyte pct 7.9 % [facility] Comment: Interpretive Data Percent cell count reference ranges are not reported, since discordance with absolute values may lead to misinterpretation of CBC data. Current Interpretive Data was last revised on 2017. Eosinophil pct 8.0 % [facility] Comment: Interpretive Data Percent cell count reference ranges are not reported, since discordance with absolute values may lead to misinterpretation of CBC data. Current Interpretive Data was last revised on 2017. Basophil pct 0.5 % [facility] Comment: Interpretive Data Percent cell count reference ranges are not reported, since discordance with absolute values may lead to misinterpretation of CBC data. Current Interpretive Data was last revised on 2017. Blood 03/22/2023 11:0 1 PM CDT 03/23/2023 12:05 AM CDT Josephine JARAMILLO LAB BLOOD ORDERABLES Shilpi montano Result [facility] [place] [address] * Basic metabolic panel (03/22/2023 11:01 PM CDT) Pathologist [facility] Sodium 140 135 - 145 mmol/L Potassium, pl 4.0 3.3 - 4.9 mmol/L [facility] Chloride 104 97 - 110 mmol/L [facility] CO2 28 22 - 32 mmol/L [facility] Anion gap 8 2 - 15 mmol/L [facility] BUN 17 6 - 25 mg/dL [facility] Creatinine 0.83 0.80 - 1.30 mg/dL [facility] Glucose 191 70 - 199 mg/dL [facility] Comment: Interpretive Data Fasting glucose >/= 126 [...] Current interpretive data was last revised 2022. Calcium 8.5 8.5 - 10.3 mg/dL [facility] Blood 03/22/2023 11:0 1 PM CDT 03/23/2023 12:04 AM CDT Josephine JARAMILLO LAB BLOOD ORDERABLES Shilpi l Result [facility] [place] [address] * (ABNORMAL) CBC with auto differential (03/22/2023 11:01 PM CDT) [facility] WBC 7.9 3.8 - 9.9 K/cumm Hgb 9.6(L) 13.0 - 17.5 g/dL [facility] Comment: Interpretive Data A reference range for this assay has not been established for patients with an unknown legal sex. Please refer to the laboratory test catalog for established sex-specific reference intervals. Current interpretive data was last revised on 2023. Hct 29.5(L) 38.9 - 50.3 % [facility] Comment: Interpretive Data A reference range for this assay has not been established for patients with an unknown legal sex. Please refer to the laboratory test catalog for established sex-specific reference intervals. Current interpretive data was last revised on 2023. Plt 226 150 - 400 K/cumm [facility] MPV 10.0 9.1 - 12.3 fL [facility] RBC 3.47(L) 4.30 - 5.80 M/cumm [facility] Comment: Interpretive Data A reference range for this assay has not been established for patients with an unknown legal sex. Please refer to the laboratory test catalog for established sex-specific reference intervals. Current interpretive data was last revised on 2023. MCV 85.0 81.3 - 96.4 fL [facility] MCH 27.7 27.1 - 33.3 pg [facility] MCHC 32.5 32.3 - 35.7 g/dL [facility] RDW CV 14.5 11.1 - 14.9 % [facility] RDW SD 44.3 35.7 - 48.1 fL [facility] NRBC abs 0.00 0.00 - 0.01 K/cumm [facility] Blood 03/22/2023 11:0 1 PM CDT 03/23/2023 12:05 AM CDT us Josephine JARAMILLO LAB BLOOD ORDERABLES Shilpi l Result [facility] [place] [address] * POCT glucose (03/22/2023 8:13 PM CDT) [facility] Glucose, POC 145 70 - 199 mg/dL Blood 03/22/2023 8:13 PM CDT 03/22/2023 8:13 PM CDT Evy Chong MD LAB POCT ORDERA BLES - DEVICE Final Result Performing Organization Address [facility] Co de Phone Number [facility] [place] [address] * POCT glucose (03/22/2023 5:04 PM CDT) Glucose, POC 187 70 - 199 mg/dL Blood 03/22/2023 5:04 PM CDT 03/22/2023 5:04 PM CDT Evy Chong MD LAB POCT ORDERA BLES - DEVICE Final Result Performing Organization Address [facility] de Phone Number [facility] [place] [address] * POCT glucose (03/22/2023 2:09 PM CDT) Glucose, POC 180 70 - 199 mg/dL Blood 03/22/2023 2:09 PM CDT 03/22/2023 2:09 PM CDT Evy Chong MD LAB POCT ORDERA BLES - DEVICE Final Result Performing Organization Address [facility] Co de Phone Number [facility] Department [place] [address] * POCT glucose (03/22/2023 8:13 AM CDT) Glucose, POC 175 70 - 199 mg/dL Blood 03/22/2023 8:13 AM CDT 03/22/2023 8:13 AM CDT Evy Chong MD LAB POCT ORDERA BLES - DEVICE Final Result Performing Organization Address [facility] Co de Phone Number [facility] [place] [address] * eGFR (03/21/2023 10:43 PM CDT) [facility] eGFR >90 90 - 130 mL/min/1. 73 m2 Comment: Interpretive Data Reference [...] Current interpretive data was last reviewed 2021. Blood 03/21/2023 10:4 3 PM CDT 03/21/2023 11:18 PM CDT Josephine JARAMILLO LAB BLOOD ORDERABLES Shilpi dusty Result NICOLASA VALENTIN [facility] [place] [address] * (ABNORMAL) Differential, auto (03/21/2023 10:43 PM CDT) [facility] Neutrophil abs 4.6 1.7 - 6.5 K/cumm Imm gran abs 0.1 0.0 - 0.1 K/cumm [facility] Lymphocyte abs 2.8 0.8 - 3.3 K/cumm [facility] Monocyte abs 0.7 0.2 - 0.8 K/cumm [facility] Eosinophil abs 0.7(H) 0.0 - 0.5 K/cumm [facility] Basophil abs 0.0 0.0 - 0.1 K/cumm [facility] Neutrophil pct 51.6 % [facility] Comment: Interpretive Data Percent cell count reference ranges are not reported, since discordance with absolute values may lead to misinterpretation of CBC data. Current Interpretive Data was last revised on 2017. Imm gran pct 0.7 % [facility] Comment: Interpretive Data Percent cell count reference ranges are not reported, since discordance with absolute values may lead to misinterpretation of CBC data. Current Interpretive Data was last revised on 2017. Lymphocyte pct 31.7 % [facility] Comment: Interpretive Data Percent cell count reference ranges are not reported, since discordance with absolute values may lead to misinterpretation of CBC data. Current Interpretive Data was last revised on 2017. Monocyte pct 8.1 % [facility] Comment: Interpretive Data Percent cell count reference ranges are not reported, since discordance with absolute values may lead to misinterpretation of CBC data. Current Interpretive Data was last revised on 2017. Eosinophil pct 7.5 % [facility] Comment: Interpretive Data Percent cell count reference ranges are not reported, since discordance with absolute values may lead to misinterpretation of CBC data. Current Interpretive Data was last revised on 2017. Basophil pct 0.4 % [facility] Comment: Interpretive Data Percent cell count reference ranges are not reported, since discordance with absolute values may lead to misinterpretation of CBC data. Current Interpretive Data was last revised on 2017. Blood 03/21/2023 10:4 3 PM CDT 03/21/2023 11:18 PM CDT Josephine JARAMILLO LAB BLOOD ORDERABLES Shilpi l Result [facility] Department [place] [address] * Basic metabolic panel (03/21/2023 10:43 PM CDT) [facility] Sodium 138 135 - 145 mmol/L Potassium, pl 4.1 3.3 - 4.9 mmol/L [facility] Chloride 106 97 - 110 mmol/L [facility] CO2 28 22 - 32 mmol/L [facility] Anion gap 4 2 - 15 mmol/L [facility] BUN 16 6 - 25 mg/dL [facility] Creatinine 0.81 0.80 - 1.30 mg/dL [facility] Glucose 158 70 - 199 mg/dL [facility] Comment: Interpretive Data Fasting glucose >/= 126 [...] Current interpretive data was last revised 2022. Calcium 8.8 8.5 - 10.3 mg/dL [facility] Blood 03/21/2023 10:4 3 PM CDT 03/21/2023 11:18 PM CDT Josephine JARAMILLO LAB BLOOD ORDERABLES Shilpi l Result [facility] [place] [address] * (ABNORMAL) CBC with auto differential (03/21/2023 10:43 PM CDT) [facility] WBC 9.0 3.8 - 9.9 K/cumm Hgb 10.4(L) 13.0 - 17.5 g/dL [facility] Comment: Interpretive Data A reference range for this assay has not been established for patients with an unknown legal sex. Please refer to the laboratory test catalog for established sex-specific reference intervals. Current interpretive data was last revised on 2023. Hct 31.6(L) 38.9 - 50.3 % [facility] Comment: Interpretive Data A reference range for this assay has not been established for patients with an unknown legal sex. Please refer to the laboratory test catalog for established sex-specific reference intervals. Current interpretive data was last revised on 2023. Plt 228 150 - 400 K/cumm [facility] MPV 9.6 9.1 - 12.3 fL [facility] RBC 3.72(L) 4.30 - 5.80 M/cumm [facility] Comment: Interpretive Data A reference range for this assay has not been established for patients with an unknown legal sex. Please refer to the laboratory test catalog for established sex-specific reference intervals. Current interpretive data was last revised on 2023. MCV 84.9 81.3 - 96.4 fL [facility] MCH 28.0 27.1 - 33.3 pg [facility] MCHC 32.9 32.3 - 35.7 g/dL [facility] RDW CV 14.5 11.1 - 14.9 % [facility] RDW SD 43.2 35.7 - 48.1 fL [facility] NRBC abs 0.00 0.00 - 0.01 K/cumm [facility] Blood 03/21/2023 10:4 3 PM CDT 03/21/2023 11:18 PM CDT Josephine JARAMILLO LAB BLOOD ORDERABLES Shilpi montano Result [facility] Department of Laboratories [place], [place] [id number] * Type and screen (03/21/2023 10:43 PM CDT) ABO Rh B Negative Keenan, indirect Negative [facility] Blood 03/21/2023 10:4 3 PM CDT 03/21/2023 11:13 PM CDT Narrative [facility] - 03/22/2023 12:13 AM CDT Has the patient had Daratumumab or Isatuximab in the past 6 months?->Unknown Matheus JARAMILLO LAB BLOOD BANK TEST ORDERAB LES Final Result Performing Organization Address [facility] Co de Phone Number [facility] [place] [address] * POCT glucose (03/21/2023 8:50 PM CDT) Glucose, POC 166 70 - 199 mg/dL Blood 03/21/2023 8:50 PM CDT 03/21/2023 8:50 PM CDT Evy Chong MD LAB POCT ORDERA BLES - DEVICE Final Result Performing Organization Address [facility] Co de Phone Number [facility] [place] [address] * POCT glucose (03/21/2023 5:40 PM CDT) Glucose, POC 197 70 - 199 mg/dL Blood 03/21/2023 5:40 PM CDT 03/21/2023 5:40 PM CDT Evy Chong MD LAB POCT ORDERA BLES - DEVICE Final Result Performing Organization Address [facility] Co de Phone Number [facility] [place] [address] * POCT glucose (03/21/2023 12:03 PM CDT) Glucose, POC 131 70 - 199 mg/dL Glucose comment 1 Glu2: RN/ Notified [facility] Blood 03/21/2023 12:0 3 PM CDT 03/21/2023 12:03 PM CDT Evy Chong MD LAB POCT ORDERA BLES - DEVICE Final Result Performing Organization Address [facility] de Phone Number [facility] [place] [address] * POCT glucose (03/21/2023 8:33 AM CDT) Pathologist [facility] Glucose, POC 169 70 - 199 mg/dL Glucose comment 1 Glu2: RN/MD Notified [facility] Blood 03/21/2023 8:33 AM CDT 03/21/2023 8:33 AM CDT Evy Chong MD LAB POCT ORDERA BLES - DEVICE Final Result Performing Organization Address [facility] de Phone Number [facility] [place] [address] * eGFR (03/20/2023 10:55 PM CDT) Pathologist [facility] eGFR >90 90 - 130 mL/min/1. 73 m2 Comment: Interpretive Data Reference [...] of Race in Diagnosing Kidney Disease, JASN 202). The CKD-EPI equation should not be used for patients with unstable renal function and has not been validated in children and those over 70. Current interpretive data was last reviewed 2021. Blood 03/20/2023 10:5 5 PM CDT 03/21/2023 12:06 AM CDT Josephine JARAMILLO LAB BLOOD ORDERABLES Shilpi montano Result [facility] [place] [address] * (ABNORMAL) Differential, auto (03/20/2023 10:55 PM CDT) Neutrophil abs 5.3 1.7 - 6.5 K/cumm Imm gran abs 0.1 0.0 - 0.1 K/cumm [facility] Lymphocyte abs 2.9 0.8 - 3.3 K/cumm [facility] Monocyte abs 0.7 0.2 - 0.8 K/cumm [facility] Eosinophil abs 0.6(H) 0.0 - 0.5 K/cumm [facility] Basophil abs 0.0 0.0 - 0.1 K/cumm [facility] Neutrophil pct 55.3 % [facility] Comment: Interpretive Data Percent cell count reference ranges are not reported, since discordance with absolute values may lead to misinterpretation of CBC data. Current Interpretive Data was last revised on 2017. Imm gran pct 0.5 % [facility] Comment: Interpretive Data Percent cell count reference ranges are not reported, since discordance with absolute values may lead to misinterpretation of CBC data. Current Interpretive Data was last revised on 2017. Lymphocyte pct 30.5 % [facility] Comment: Interpretive Data Percent cell count reference ranges are not reported, since discordance with absolute values may lead to misinterpretation of CBC data. Current Interpretive Data was last revised on 2017. Monocyte pct 7.3 % [facility] Comment: Interpretive Data Percent cell count reference ranges are not reported, since discordance with absolute values may lead to misinterpretation of CBC data. Current Interpretive Data was last revised on 2017. Eosinophil pct 6.1 % [facility] Comment: Interpretive Data Percent cell count reference ranges are not reported, since discordance with absolute values may lead to misinterpretation of CBC data. Current Interpretive Data was last revised on 2017. Basophil pct 0.3 % [facility] Comment: Interpretive Data Percent cell count reference ranges are not reported, since discordance with absolute values may lead to misinterpretation of CBC data. Current Interpretive Data was last revised on 2017. Blood 03/20/2023 10:5 5 PM CDT 03/21/2023 12:06 AM CDT Josephine JARAMILLO LAB BLOOD ORDERABLES Shilpi montano Result [facility] [place] [address] * (ABNORMAL) Basic metabolic panel (03/20/2023 10:55 PM CDT) Sodium 136 135 - 145 mmol/L Potassium, pl 3.8 3.3 - 4.9 mmol/L [facility] Chloride 102 97 - 110 mmol/L [facility] CO2 27 22 - 32 mmol/L [facility] Anion gap 7 2 - 15 mmol/L [facility] BUN 17 6 - 25 mg/dL [facility] Creatinine 0.77(L) 0.80 - 1.30 mg/dL [facility] Glucose 157 70 - 199 mg/dL [facility] Comment: Interpretive Data Fasting glucose >/= 126 [...] Current interpretive data was last revised 2022. Calcium 8.8 8.5 - 10.3 mg/dL [facility] Blood 03/20/2023 10:5 5 PM CDT 03/21/2023 12:06 AM CDT Josephine JARAMILLO LAB BLOOD ORDERABLES Shilpi montano Result [facility] [place] [address] * (ABNORMAL) CBC with auto differential (03/20/2023 10:55 PM CDT) [facility] WBC 9.6 3.8 - 9.9 K/cumm Hgb 11.1(L) 13.0 - 17.5 g/dL [facility] Comment: Interpretive Data A reference range for this assay has not been established for patients with an unknown legal sex. Please refer to the laboratory test catalog for established sex-specific reference intervals. Current interpretive data was last revised on 2023. Hct 34.6(L) 38.9 - 50.3 % [facility] Plt 239 150 - 400 K/cumm [facility] MPV 9.6 9.1 - 12.3 fL [facility] RBC 4.05(L) 4.30 - 5.80 M/cumm [facility] Comment: Interpretive Data A reference range for this assay has not been established for patients with an unknown legal sex. Please refer to the laboratory test catalog for established sex-specific reference intervals. Current interpretive data was last revised on 2023. MCV 85.4 81.3 - 96.4 fL [facility] MCH 27.4 27.1 - 33.3 pg [facility] MCHC 32.1(L) 32.3 - 35.7 g/dL [facility] RDW CV 14.3 11.1 - 14.9 % [facility] RDW SD 42.3 35.7 - 48.1 fL [facility] NRBC abs 0.00 0.00 - 0.01 K/cumm [facility] Blood 03/20/2023 10:5 5 PM CDT 03/21/2023 12:06 AM CDT Josephine JARAMILLO LAB BLOOD ORDERABLES Shilpi l Result Performing Organization Address [facility] Co de Phone Number [facility] [place] [address] * POCT glucose (03/20/2023 9:00 PM CDT) Glucose, POC 152 70 - 199 mg/dL Blood 03/20/2023 9:00 PM CDT 03/20/2023 9:00 PM CDT Evy Chong MD LAB POCT ORDERA BLES - DEVICE Final Result Performing Organization Address [facility] de Phone Number [facility] [place] [address] * POCT glucose (03/20/2023 5:37 PM CDT) Glucose, POC 158 70 - 199 mg/dL Blood 03/20/2023 5:37 PM CDT 03/20/2023 5:37 PM CDT Evy Chong MD LAB POCT ORDERA BLES - DEVICE Final Result Performing Organization Address [facility] de Phone Number [facility] [place] [address] * (ABNORMAL) POCT glucose (03/20/2023 12:24 PM CDT) Glucose, POC 257(H) 70 - 199 mg/dL Blood 03/20/2023 12:2 4 PM CDT 03/20/2023 12:24 PM CDT Evy Chong MD LAB POCT ORDERA BLES - DEVICE Final Result Performing Organization Address [facility] de Phone Number [facility] [place] [address] * POCT glucose (03/20/2023 8:23 AM CDT) Glucose, POC 176 70 - 199 mg/dL Blood 03/20/2023 8:23 AM CDT 03/20/2023 8:23 AM CDT Evy Chong MD LAB POCT ORDERA BLES - DEVICE Final Result Performing Organization Address [facility] de Phone Number [facility] [place] [address] * POCT glucose (03/19/2023 9:14 PM CDT) Glucose, POC 149 70 - 199 mg/dL Blood 03/19/2023 9:14 PM CDT 03/19/2023 9:14 PM CDT Evy Chong MD LAB POCT ORDERA BLES - DEVICE Final Result Performing Organization Address [facility] [place] [address] * POCT glucose (03/19/2023 6:00 PM CDT) Glucose, POC 159 70 - 199 mg/dL Blood 03/19/2023 6:00 PM CDT 03/19/2023 6:00 PM CDT Evy Chong MD LAB POCT ORDERA BLES - DEVICE Final Result Performing Organization Address [facility] de Phone Number [facility] [place] [address] * POCT glucose (03/19/2023 2:06 PM CDT) Glucose, POC 148 70 - 199 mg/dL Blood 03/19/2023 2:06 PM CDT 03/19/2023 2:06 PM CDT Evy Chong MD LAB POCT ORDERA BLES - DEVICE Final Result Performing Organization Address [facility] de Phone Number NICOLASA [facility] [place] [address] * POCT glucose (03/19/2023 8:29 AM CDT) Glucose, POC 168 70 - 199 mg/dL Blood 03/19/2023 8:29 AM CDT 03/19/2023 8:29 AM CDT Evy Chong MD LAB POCT ORDERA BLES - DEVICE Final Result Performing Organization Address [facility] de Phone Number [facility] [place] [address] * eGFR (03/18/2023 10:07 PM CDT) eGFR >90 90 - 130 mL/min/1. 73 m2 Comment: Interpretive Data Reference [...] Current interpretive data was last reviewed 2021. Blood 03/18/2023 10:0 7 PM CDT 03/18/2023 11:24 PM CDT Josephine JARAMILLO LAB BLOOD ORDERABLES Shilpi montano Result [facility] [place] [address] * Differential, auto (03/18/2023 10:07 PM CDT) Pathologist [facility] Neutrophil abs 5.8 1.7 - 6.5 K/cumm Imm gran abs 0.1 0.0 - 0.1 K/cumm [facility] Lymphocyte abs 3.0 0.8 - 3.3 K/cumm [facility] Monocyte abs 0.7 0.2 - 0.8 K/cumm [facility] Eosinophil abs 0.5 0.0 - 0.5 K/cumm [facility] Basophil abs 0.0 0.0 - 0.1 K/cumm [facility] Neutrophil pct 57.8 % [facility] Comment: Interpretive Data Percent cell count reference ranges are not reported, since discordance with absolute values may lead to misinterpretation of CBC data. Current Interpretive Data was last revised on 2017. Imm gran pct 0.5 % [facility] Comment: Interpretive Data Percent cell count reference ranges are not reported, since discordance with absolute values may lead to misinterpretation of CBC data. Current Interpretive Data was last revised on 2017. Lymphocyte pct 29.8 % [facility] Comment: Interpretive Data Percent cell count reference ranges are not reported, since discordance with absolute values may lead to misinterpretation of CBC data. Current Interpretive Data was last revised on 2017. Monocyte pct 6.8 % [facility] Comment: Interpretive Data Percent cell count reference ranges are not reported, since discordance with absolute values may lead to misinterpretation of CBC data. Current Interpretive Data was last revised on 2017. Eosinophil pct 4.8 % [facility] Comment: Interpretive Data Percent cell count reference ranges are not reported, since discordance with absolute values may lead to misinterpretation of CBC data. Current Interpretive Data was last revised on 2017. Basophil pct 0.3 % [facility] Comment: Interpretive Data Percent cell count reference ranges are not reported, since discordance with absolute values may lead to misinterpretation of CBC data. Current Interpretive Data was last revised on 2017. Blood 03/18/2023 10:0 7 PM CDT 03/18/2023 11:24 PM CDT Josephine JARAMILLO LAB BLOOD ORDERABLES Shilpi l Result [facility] Department of [place] [address] * Basic metabolic panel (03/18/2023 10:07 PM CDT) Sodium 140 135 - 145 mmol/L Potassium, pl 3.9 3.3 - 4.9 mmol/L [facility] Chloride 103 97 - 110 mmol/L [facility] CO2 28 22 - 32 mmol/L [facility] Anion gap 9 2 - 15 mmol/L [facility] BUN 11 6 - 25 mg/dL [facility] Creatinine 0.83 0.80 - 1.30 mg/dL [facility] Glucose 138 70 - 199 mg/dL [facility] Comment: Interpretive Data Fasting glucose >/= 126 [...] Current interpretive data was last revised 2022. Calcium 8.7 8.5 - 10.3 mg/dL [facility] Blood 03/18/2023 10:0 7 PM CDT 03/18/2023 11:24 PM CDT Josephine JARAMILLO LAB BLOOD ORDERABLES Shilpi l Result [facility] [place] [address] * (ABNORMAL) CBC with auto differential (03/18/2023 10:07 PM CDT) [facility] WBC 10.0(H) 3.8 - 9.9 K/cumm Hgb 10.3(L) 13.0 - 17.5 g/dL [facility] Hct 31.9(L) 38.9 - 50.3 % [facility] Plt 273 150 - 400 K/cumm [facility] MPV 9.6 9.1 - 12.3 fL [facility] RBC 3.78(L) 4.30 - 5.80 M/cumm [facility] Comment: Interpretive Data A reference range for this assay has not been established for patients with an unknown legal sex. Please refer to the laboratory test catalog for established sex-specific reference intervals. Current interpretive data was last revised on 2023. MCV 84.4 81.3 - 96.4 fL [facility] MCH 27.2 27.1 - 33.3 pg [facility] MCHC 32.3 32.3 - 35.7 g/dL [facility] RDW CV 13.5 11.1 - 14.9 % [facility] RDW SD 39.8 35.7 - 48.1 fL [facility] NRBC abs 0.00 0.00 - 0.01 K/cumm [facility] Blood 03/18/2023 10:0 7 PM CDT 03/18/2023 11:24 PM CDT us Josephine JARAMILLO LAB BLOOD ORDERABLES Shilpi l Result Performing Organization Address City/[facility]/ZIP Co de Phone Number [facility] [place] [address] * Type and screen (03/18/2023 10:07 PM CDT) ABO Rh B Negative Keenan, indirect Negative [facility] Blood 03/18/2023 10:0 7 PM CDT 03/18/2023 11:24 PM CDT Narrative [facility] - 03/19/2023 12:13 AM CDT Has the patient had Daratumumab or Isatuximab in the past 6 months?->Unknown us Matheus JARAMILLO LAB BLOOD BANK TEST ORDERAB LES Final Result Performing Organization Address City/[facility]/ZIP Co de Phone Number [facility] [place] [address] * POCT glucose (03/18/2023 9:59 PM CDT) Glucose, POC 131 70 - 199 mg/dL Blood 03/18/2023 9:59 PM CDT 03/18/2023 9:59 PM CDT Evy Chong MD LAB POCT ORDERA BLES - DEVICE Final Result [facility] [place] [address] * POCT glucose (03/18/2023 6:11 PM CDT) Glucose, POC 142 70 - 199 mg/dL Blood 03/18/2023 6:11 PM CDT 03/18/2023 6:11 PM CDT Evy Chong MD LAB POCT ORDERA BLES - DEVICE Final Result Performing Organization Address [facility] [place] [address] * POCT glucose (03/18/2023 1:17 PM CDT) Glucose, POC 191 70 - 199 mg/dL Blood 03/18/2023 1:17 PM CDT 03/18/2023 1:17 PM CDT Evy Chong MD LAB POCT ORDERA BLES - DEVICE Final Result Performing Organization Address [facility] Co de Phone Number [facility] [place] [address] * POCT glucose (03/18/2023 8:32 AM CDT) Glucose, POC 156 70 - 199 mg/dL Blood 03/18/2023 8:32 AM CDT 03/18/2023 8:32 AM CDT Evy Chong MD LAB POCT ORDERA BLES - DEVICE Final Result Performing Organization Address City/[facility]/ZIP Co de Phone Number [facility] [place] [address] * (ABNORMAL) Hepatic function panel (03/17/2023 10:10 PM CDT) Pathologist [facility] Bilirubin, total 0.2 0.1 - 1.2 mg/dL Bilirubin, direct <0.2 0.1 - 0.3 mg/dL [facility] Protein, pl 6.0(L) 6.5 - 8.5 g/dL [facility] Albumin 3.0(L) 3.5 - 5.0 g/dL [facility] Alk phos 68 40 - 130 Units/L [facility] ALT 11 7 - 55 Units/L [facility] AST 23 10 - 50 Units/L [facility] Blood 03/17/2023 10:1 0 PM CDT 03/17/2023 10:52 PM CDT Evy Chong MD LAB BLOOD ORDER MARA Final Result [facility] [place] [address] * eGFR (03/17/2023 10:10 PM CDT) [facility] eGFR >90 90 - 130 mL/min/1. 73 m2 Comment: Interpretive Data Reference Interval Normal ?>/= 90 mL/min/1.73m2 Mildly decreased* ? 60 - 89 mL/min/1.73m2 Mildly to moderately decreased ?45 - 59 mL/min/1.73m2 Moderately to severely decreased ??30 - 44 mL/min/1.73m2 Severely decreased ?15 - 29 mL/min/1.73m2 Kidney Failure ?< 15 ??mL/min/1.73m2 *Relative to young adult level Estimated glomerular filtration rate is determined by the 2021 CKD-EPI equation recommended by the National Kid[employer] (A Unifying Approach to GFR Estimation: Recommendations of the NKF-ASK Task Force on Reassessing the Inclusion of Race in Diagnosing Kidney Disease, JASN 202). The CKD-EPI equation should not be used for patients with unstable renal function and has not been validated in children and those over 70. Current interpretive data was last reviewed 2021. Blood 03/17/2023 10:1 0 PM CDT 03/17/2023 10:52 PM CDT us Josephine JARAMILLO LAB BLOOD ORDERABLES Shilpi montano Result [facility] [place] [address] * Differential, auto (03/17/2023 10:10 PM CDT) Neutrophil abs 5.2 1.7 - 6.5 K/cumm Imm gran abs 0.1 0.0 - 0.1 K/cumm [facility] Lymphocyte abs 2.7 0.8 - 3.3 K/cumm [facility] Monocyte abs 0.7 0.2 - 0.8 K/cumm [facility] Eosinophil abs 0.4 0.0 - 0.5 K/cumm [facility] Basophil abs 0.0 0.0 - 0.1 K/cumm [facility] Neutrophil pct 57.3 % [facility] Comment: Interpretive Data Percent cell count reference ranges are not reported, since discordance with absolute values may lead to misinterpretation of CBC data. Current Interpretive Data was last revised on 2017. Imm gran pct 0.6 % [facility] Comment: Interpretive Data Percent cell count reference ranges are not reported, since discordance with absolute values may lead to misinterpretation of CBC data. Current Interpretive Data was last revised on 2017. Lymphocyte pct 29.9 % [facility] Comment: Interpretive Data Percent cell count reference ranges are not reported, since discordance with absolute values may lead to misinterpretation of CBC data. Current Interpretive Data was last revised on 2017. Monocyte pct 7.7 % [facility] Comment: Interpretive Data Percent cell count reference ranges are not reported, since discordance with absolute values may lead to misinterpretation of CBC data. Current Interpretive Data was last revised on 2017. Eosinophil pct 4.3 % [facility] Comment: Interpretive Data Percent cell count reference ranges are not reported, since discordance with absolute values may lead to misinterpretation of CBC data. Current Interpretive Data was last revised on 2017. Basophil pct 0.2 % [facility] Comment: Interpretive Data Percent cell count reference ranges are not reported, since discordance with absolute values may lead to misinterpretation of CBC data. Current Interpretive Data was last revised on 2017. Blood 03/17/2023 10:1 0 PM CDT 03/17/2023 11:01 PM CDT Josephine JARAMILLO LAB BLOOD ORDERABLES Shilpi montano Result [facility] [place] [address] * Basic metabolic panel (03/17/2023 10:10 PM CDT) Sodium 139 135 - 145 mmol/L Potassium, pl 3.9 3.3 - 4.9 mmol/L [facility] Chloride 101 97 - 110 mmol/L [facility] CO2 29 22 - 32 mmol/L [facility] Anion gap 9 2 - 15 mmol/L [facility] BUN 13 6 - 25 mg/dL [facility] Creatinine 0.82 0.80 - 1.30 mg/dL [facility] Glucose 163 70 - 199 mg/dL [facility] Comment: Interpretive Data Fasting glucose >/= 126 [...] Current interpretive data was last revised 2022. Calcium 8.7 8.5 - 10.3 mg/dL [facility] Blood 03/17/2023 10:1 0 PM CDT 03/17/2023 10:52 PM CDT Josephine JARAMILLO LAB BLOOD ORDERABLES Shilpi montano Result [facility] [place] [address] * (ABNORMAL) CBC with auto differential (03/17/2023 10:10 PM CDT) [facility] WBC 9.1 3.8 - 9.9 K/cumm Hgb 10.0(L) 13.0 - 17.5 g/dL [facility] Hct 31.2(L) 38.9 - 50.3 % [facility] Plt 235 150 - 400 K/cumm [facility] MPV 9.4 9.1 - 12.3 fL [facility] RBC 3.70(L) 4.30 - 5.80 M/cumm [facility] Comment: Interpretive Data A reference range for this assay has not been established for patients with an unknown legal sex. Please refer to the laboratory test catalog for established sex-specific reference intervals. Current interpretive data was last revised on 2023. MCV 84.3 81.3 - 96.4 fL [facility] MCH 27.0(L) 27.1 - 33.3 pg [facility] MCHC 32.1(L) 32.3 - 35.7 g/dL [facility] RDW CV 13.2 11.1 - 14.9 % [facility] RDW SD 39.0 35.7 - 48.1 fL [facility] NRBC abs 0.00 0.00 - 0.01 K/cumm [facility] Blood 03/17/2023 10:1 0 PM CDT 03/17/2023 11:01 PM CDT Josephine Chavez PA LAB BLOOD ORDERABLES Shilpi l Result Performing Organization Address [facility] Co de Phone Number [facility] [place] [address] * (ABNORMAL) POCT glucose (03/17/2023 9:22 PM CDT) Glucose, POC 205(H) 70 - 199 mg/dL Blood 03/17/2023 9:22 PM CDT 03/17/2023 9:22 PM CDT Evy Chong MD LAB POCT ORDERA BLES - DEVICE Final Result Performing Organization Address [facility] de Phone Number [facility] [place] [address] * POCT glucose (03/17/2023 6:24 PM CDT) Glucose, POC 166 70 - 199 mg/dL Blood 03/17/2023 6:24 PM CDT 03/17/2023 6:24 PM CDT Evy Chong MD LAB POCT ORDERA BLES - DEVICE Final Result Performing Organization Address [facility] de Phone Number [facility] [place] [address] * POCT glucose (03/17/2023 12:47 PM CDT) Glucose, POC 142 70 - 199 mg/dL Blood 03/17/2023 12:4 7 PM CDT 03/17/2023 12:47 PM CDT Evy Chong MD LAB POCT ORDERA BLES - DEVICE Final Result Performing Organization Address [facility] Co de Phone Number [facility] [place] [address] * POCT glucose (03/17/2023 9:09 AM CDT) [facility] Glucose, POC 175 70 - 199 mg/dL [facility] Blood 03/17/2023 9:09 AM CDT 03/17/2023 9:09 AM CDT Evy Chong MD LAB POCT ORDERA BLES - DEVICE Final Result Performing Organization Address [facility] Co de Phone Number [facility] [place] [address] * eGFR (03/16/2023 8:56 PM CDT) [facility] eGFR >90 90 - 130 mL/min/1. 73 m2 [facility] Comment: Interpretive Data Reference Interval Normal ?>/= [...] Current interpretive data was last reviewed 2021. Blood 03/16/2023 8:56 PM CDT 03/16/2023 9:54 PM CDT Josephine Joe JARAMILLO LAB BLOOD ORDERABLES Shilpi dusty Result [facility] [place] [address] * Differential, auto (03/16/2023 8:56 PM CDT) Pathologist [facility] Neutrophil abs 6.3 1.7 - 6.5 K/cumm [facility] Imm gran abs 0.1 0.0 - 0.1 K/cumm [facility] Lymphocyte abs 2.7 0.8 - 3.3 K/cumm [facility] Monocyte abs 0.7 0.2 - 0.8 K/cumm [facility] Eosinophil abs 0.3 0.0 - 0.5 K/cumm [facility] Basophil abs 0.0 0.0 - 0.1 K/cumm [facility] Neutrophil pct 62.4 % [facility] Comment: Interpretive Data Percent cell count reference ranges are not reported, since discordance with absolute values may lead to misinterpretation of CBC data. Current Interpretive Data was last revised on 2017. Imm gran pct 0.6 % [facility] Comment: Interpretive Data Percent cell count reference ranges are not reported, since discordance with absolute values may lead to misinterpretation of CBC data. Current Interpretive Data was last revised on 2017. Lymphocyte pct 26.9 % [facility] Comment: Interpretive Data Percent cell count reference ranges are not reported, since discordance with absolute values may lead to misinterpretation of CBC data. Current Interpretive Data was last revised on 2017. Monocyte pct 7.2 % [facility] Comment: Interpretive Data Percent cell count reference ranges are not reported, since discordance with absolute values may lead to misinterpretation of CBC data. Current Interpretive Data was last revised on 2017. Eosinophil pct 2.6 % [facility] Comment: Interpretive Data Percent cell count reference ranges are not reported, since discordance with absolute values may lead to misinterpretation of CBC data. Current Interpretive Data was last revised on 2017. Basophil pct 0.3 % [facility] Comment: Interpretive Data Percent cell count reference ranges are not reported, since discordance with absolute values may lead to misinterpretation of CBC data. Current Interpretive Data was last revised on 2017. Blood 03/16/2023 8:56 PM CDT 03/16/2023 9:54 PM CDT Josephine JARAMILLO LAB BLOOD ORDERABLES Shilpi montano Result [facility] [place] [address] * Basic metabolic panel (03/16/2023 8:56 PM CDT) Sodium 139 135 - 145 mmol/L [facility] Potassium, pl 4.2 3.3 - 4.9 mmol/L [facility] Chloride 101 97 - 110 mmol/L [facility] CO2 29 22 - 32 mmol/L [facility] Anion gap 9 2 - 15 mmol/L [facility] BUN 8 6 - 25 mg/dL [facility] Creatinine 0.92 0.80 - 1.30 mg/dL [facility] Glucose 158 70 - 199 mg/dL [facility] Comment: Interpretive Data Fasting glucose >/= 126 [...] Current interpretive data was last revised 2022. Calcium 8.6 8.5 - 10.3 mg/dL [facility] Blood 03/16/2023 8:56 PM CDT 03/16/2023 9:54 PM CDT Josephine JARAMILLO LAB BLOOD ORDERABLES Shilpi l Result [facility] [place] [address] * (ABNORMAL) CBC with auto differential (03/16/2023 8:56 PM CDT) [facility] WBC 10.0(H) 3.8 - 9.9 K/cumm [facility] Hgb 10.1(L) 13.0 - 17.5 g/dL [facility] Hct 31.3(L) 38.9 - 50.3 % [facility] Plt 244 150 - 400 K/cumm [facility] MPV 9.3 9.1 - 12.3 fL [facility] RBC 3.80(L) 4.30 - 5.80 M/cumm [facility] Comment: Interpretive Data A reference range for this assay has not been established for patients with an unknown legal sex. Please refer to the laboratory test catalog for established sex-specific reference intervals. Current interpretive data was last revised on 2023. MCV 82.4 81.3 - 96.4 fL [facility] MCH 26.6(L) 27.1 - 33.3 pg [facility] MCHC 32.3 32.3 - 35.7 g/dL [facility] RDW CV 13.2 11.1 - 14.9 % [facility] RDW SD 38.9 35.7 - 48.1 fL [facility] NRBC abs 0.00 0.00 - 0.01 K/cumm [facility] Blood 03/16/2023 8:56 PM CDT 03/16/2023 9:54 PM CDT Josephine JARAMILLO LAB BLOOD ORDERABLES Shilpi l Result [facility] [place] [address] * POCT glucose (03/16/2023 8:47 PM CDT) Glucose, POC 167 70 - 199 mg/dL [facility] Blood 03/16/2023 8:47 PM CDT 03/16/2023 8:47 PM CDT Neno Lei MD LAB POCT ORDERABLES - DEV ICE Final Result Performing Organization Address City/[facility]/ZIP Co de Phone Number [facility] [place] [address] * POCT glucose (03/16/2023 6:21 PM CDT) [facility] Glucose, POC 166 70 - 199 mg/dL [facility] Blood 03/16/2023 6:21 PM CDT 03/16/2023 6:21 PM CDT Neno Lei MD LAB POCT ORDERABLES - DEV ICE Final Result Performing Organization Address City/[facility] Co de Phone Number [facility] [place] [address] * (ABNORMAL) Albumin Creatinine Ratio, Urine (03/16/2023 4:21 PM CDT) [facility] Albumin Ur 39.3 mg/L [facility] Comment: Interpretive Data No reference range established. Current interpretive data was last revised 2018. Creatinine Ur 88.9 mg/dL [facility] Comment: Interpretive Data No reference range established. Current interpretive data was last revised 2018. Albumin Creatinine Ratio, Ur 44(H) 1 - 29 mg/g [facility] Urine 03/16/2023 4:21 PM CDT 03/16/2023 6:01 PM CDT us Luis Daniel Hanna NP LAB URINE ORDERABLES Fin al Result Performing Organization Address City/[facility]/ZIP Co de Phone Number [facility] [place] [address] * POCT glucose (03/16/2023 2:19 PM CDT) Glucose, POC 162 70 - 199 mg/dL [facility] Blood 03/16/2023 2:19 PM CDT 03/16/2023 2:19 PM CDT us Neno Lei MD LAB POCT ORDERABLES - DEV ICE Final Result Performing Organization Address [facility] Co de Phone Number [facility] [place] [address] * POCT glucose (03/16/2023 9:06 AM CDT) Glucose, POC 178 70 - 199 mg/dL [facility] Blood 03/16/2023 9:06 AM CDT 03/16/2023 9:06 AM CDT Neno Lei MD LAB POCT ORDERABLES - DEV ICE Final Result Performing Organization Address [facility]/ZIP Co de Phone Number [facility] [place] [address] * POCT glucose (03/15/2023 9:01 PM CDT) Glucose, POC 147 70 - 199 mg/dL [facility] Blood 03/15/2023 9:01 PM CDT 03/15/2023 9:01 PM CDT Neno Lei MD LAB POCT ORDERABLES - DEV ICE Final Result Performing Organization Address City/[facility]/ZIP Co de Phone Number [facility] [place] [address] * eGFR (03/15/2023 7:38 PM CDT) [facility] eGFR >90 90 - 130 mL/min/1. 73 m2 [facility] Comment: Interpretive Data Reference Interval Normal ?>/= [...] Current interpretive data was last reviewed 2021. Blood 03/15/2023 7:38 PM CDT 03/15/2023 8:16 PM CDT Josephine JARAMILLO LAB BLOOD ORDERABLES Shilpi l Result [facility] [place] [address] * Differential, auto (03/15/2023 7:38 PM CDT) [facility] Neutrophil abs 5.1 1.7 - 6.5 K/cumm [facility] Imm gran abs 0.1 0.0 - 0.1 K/cumm [facility] Lymphocyte abs 2.3 0.8 - 3.3 K/cumm [facility] Monocyte abs 0.7 0.2 - 0.8 K/cumm [facility] Eosinophil abs 0.3 0.0 - 0.5 K/cumm [facility] Basophil abs 0.0 0.0 - 0.1 K/cumm [facility] Neutrophil pct 60.2 % [facility] Comment: Interpretive Data Percent cell count reference ranges are not reported, since discordance with absolute values may lead to misinterpretation of CBC data. Current Interpretive Data was last revised on 2017. Imm gran pct 0.7 % [facility] Comment: Interpretive Data Percent cell count reference ranges are not reported, since discordance with absolute values may lead to misinterpretation of CBC data. Current Interpretive Data was last revised on 2017. Lymphocyte pct 26.9 % [facility] Comment: Interpretive Data Percent cell count reference ranges are not reported, since discordance with absolute values may lead to misinterpretation of CBC data. Current Interpretive Data was last revised on 2017. Monocyte pct 8.5 % [facility] Comment: Interpretive Data Percent cell count reference ranges are not reported, since discordance with absolute values may lead to misinterpretation of CBC data. Current Interpretive Data was last revised on 2017. Eosinophil pct 3.3 % [facility] Comment: Interpretive Data Percent cell count reference ranges are not reported, since discordance with absolute values may lead to misinterpretation of CBC data. Current Interpretive Data was last revised on 2017. Basophil pct 0.4 % [facility] Comment: Interpretive Data Percent cell count reference ranges are not reported, since discordance with absolute values may lead to misinterpretation of CBC data. Current Interpretive Data was last revised on 2017. Blood 03/15/2023 7:38 PM CDT 03/15/2023 8:15 PM CDT Josephine JARAMILLO LAB BLOOD ORDERABLES Shilpi montano Result [facility] [place] [address] * Basic metabolic panel (03/15/2023 7:38 PM CDT) [facility] Sodium 138 135 - 145 mmol/L [facility] Potassium, pl 4.2 3.3 - 4.9 mmol/L [facility] Chloride 102 97 - 110 mmol/L [facility] CO2 28 22 - 32 mmol/L [facility] Anion gap 8 2 - 15 mmol/L [facility] BUN 9 6 - 25 mg/dL [facility] Creatinine 0.83 0.80 - 1.30 mg/dL [facility] Glucose 186 70 - 199 mg/dL [facility] Comment: Interpretive Data Fasting glucose >/= 126 [...] Current interpretive data was last revised 2022. Calcium 8.5 8.5 - 10.3 mg/dL [facility] Blood 03/15/2023 7:38 PM CDT 03/15/2023 8:16 PM CDT Josephine JARAMILLO LAB BLOOD ORDERABLES Shilpi l Result [facility] [place] [address] * (ABNORMAL) CBC with auto differential (03/15/2023 7:38 PM CDT) [facility] WBC 8.5 3.8 - 9.9 K/cumm [facility] Hgb 9.9(L) 13.0 - 17.5 g/dL [facility] Hct 30.5(L) 38.9 - 50.3 % [facility] Plt 214 150 - 400 K/cumm [facility] MPV 9.5 9.1 - 12.3 fL [facility] RBC 3.67(L) 4.30 - 5.80 M/cumm [facility] MCV 83.1 81.3 - 96.4 fL [facility] MCH 27.0(L) 27.1 - 33.3 pg [facility] MCHC 32.5 32.3 - 35.7 g/dL [facility] RDW CV 13.2 11.1 - 14.9 % [facility] RDW SD 39.6 35.7 - 48.1 fL [facility] NRBC abs 0.00 0.00 - 0.01 K/cumm [facility] Blood 03/15/2023 7:38 PM CDT 03/15/2023 8:15 PM CDT Josephine JARAMILLO LAB BLOOD ORDERABLES Shilpi l Result [facility] Department [place] [address] * Type and screen (03/15/2023 7:38 PM CDT) Keenan, indirect Negative [facility] ABO Rh B Negative [facility] Blood 03/15/2023 7:38 PM CDT 03/15/2023 8:18 PM CDT Narrative [facility] - 03/15/2023 9:10 PM CDT Has the patient had Daratumumab or Isatuximab in the past 6 months?->Unknown Matheus JARAMILLO LAB BLOOD BANK TEST ORDERAB LES Final Result [facility] [place] [address] * (ABNORMAL) POCT glucose (03/15/2023 5:06 PM CDT) Glucose, POC 208(H) 70 - 199 mg/dL [facility] Blood 03/15/2023 5:06 PM CDT 03/15/2023 5:06 PM CDT Neno Lei MD LAB POCT ORDERABLES - DEV ICE Final Result Performing Organization Address City/[facility] Co de Phone Number [facility] [place] [address] * POCT glucose (03/15/2023 12:14 PM CDT) Glucose, POC 176 70 - 199 mg/dL [facility] Blood 03/15/2023 12:1 4 PM CDT 03/15/2023 12:14 PM CDT Neno Lei MD LAB POCT ORDERABLES - DEV ICE Final Result Performing Organization Address [facility] Co de Phone Number [facility] [place] [address] * POCT glucose (03/15/2023 7:35 AM CDT) Glucose, POC 194 70 - 199 mg/dL [facility] Blood 03/15/2023 7:35 AM CDT 03/15/2023 7:35 AM CDT Neno Lei MD LAB POCT ORDERABLES - DEV ICE Final Result Performing Organization Address [facility] Co de Phone Number [facility] [place] [address] * POCT glucose (03/14/2023 7:52 PM CDT) Glucose, POC 130 70 - 199 mg/dL [facility] Blood 03/14/2023 7:52 PM CDT 03/14/2023 7:52 PM CDT us Neno Lei MD LAB POCT ORDERABLES - DEV ICE Final Result Performing Organization Address [facility] Co de Phone Number [facility] [place] [address] * eGFR (03/14/2023 7:41 PM CDT) eGFR >90 90 - 130 mL/min/1. 73 m2 [facility] Comment: Interpretive Data Reference Interval Normal ?>/= [...] Current interpretive data was last reviewed 2021. Blood 03/14/2023 7:41 PM CDT 03/14/2023 8:20 PM CDT us Josephine JARAMILLO LAB BLOOD ORDERABLES Shilpi l Result [facility] [place] [address] * Differential, auto (03/14/2023 7:41 PM CDT) Neutrophil abs 6.0 1.7 - 6.5 K/cumm [facility] Imm gran abs 0.1 0.0 - 0.1 K/cumm [facility] Lymphocyte abs 2.5 0.8 - 3.3 K/cumm [facility] Monocyte abs 0.8 0.2 - 0.8 K/cumm [facility] Eosinophil abs 0.3 0.0 - 0.5 K/cumm [facility] Basophil abs 0.0 0.0 - 0.1 K/cumm [facility] Neutrophil pct 61.8 % [facility] Comment: Interpretive Data Percent cell count reference ranges are not reported, since discordance with absolute values may lead to misinterpretation of CBC data. Current Interpretive Data was last revised on 2017. Imm gran pct 0.7 % [facility] Comment: Interpretive Data Percent cell count reference ranges are not reported, since discordance with absolute values may lead to misinterpretation of CBC data. Current Interpretive Data was last revised on 2017. Lymphocyte pct 26.1 % [facility] Comment: Interpretive Data Percent cell count reference ranges are not reported, since discordance with absolute values may lead to misinterpretation of CBC data. Current Interpretive Data was last revised on 2017. Monocyte pct 7.8 % [facility] Comment: Interpretive Data Percent cell count reference ranges are not reported, since discordance with absolute values may lead to misinterpretation of CBC data. Current Interpretive Data was last revised on 2017. Eosinophil pct 3.3 % [facility] Comment: Interpretive Data Percent cell count reference ranges are not reported, since discordance with absolute values may lead to misinterpretation of CBC data. Current Interpretive Data was last revised on 2017. Basophil pct 0.3 % [facility] Comment: Interpretive Data Percent cell count reference ranges are not reported, since discordance with absolute values may lead to misinterpretation of CBC data. Current Interpretive Data was last revised on 2017. Blood 03/14/2023 7:41 PM CDT 03/14/2023 8:20 PM CDT Josephine Joe JARAMILLO LAB BLOOD ORDERABLES Shilpi l Result Performing Organization Address City/[facility]/ZIP Co de Phone Number [facility] [place] [address] * (ABNORMAL) Basic metabolic panel (03/14/2023 7:41 PM CDT) [facility] Sodium 139 135 - 145 mmol/L [facility] Potassium, pl 4.0 3.3 - 4.9 mmol/L [facility] Chloride 100 97 - 110 mmol/L [facility] CO2 30 22 - 32 mmol/L [facility] Anion gap 9 2 - 15 mmol/L [facility] BUN 5(L) 6 - 25 mg/dL [facility] Creatinine 0.72(L) 0.80 - 1.30 mg/dL [facility] Glucose 137 70 - 199 mg/dL [facility] Comment: Interpretive Data Fasting glucose >/= 126 [...] Current interpretive data was last revised 2022. Calcium 8.8 8.5 - 10.3 mg/dL [facility] Blood 03/14/2023 7:41 PM CDT 03/14/2023 8:20 PM CDT Josephine Joe JARAMILLO LAB BLOOD ORDERABLES Shilpi l Result Performing Organization Address [facility]/ZIP Co de Phone Number [facility] [place] [address] * (ABNORMAL) CBC with auto differential (03/14/2023 7:41 PM CDT) [facility] WBC 9.7 3.8 - 9.9 K/cumm [facility] Hgb 10.9(L) 13.0 - 17.5 g/dL [facility] Hct 33.2(L) 38.9 - 50.3 % [facility] Plt 228 150 - 400 K/cumm [facility] MPV 9.2 9.1 - 12.3 fL [facility] RBC 3.96(L) 4.30 - 5.80 M/cumm [facility] MCV 83.8 81.3 - 96.4 fL [facility] MCH 27.5 27.1 - 33.3 pg [facility] MCHC 32.8 32.3 - 35.7 g/dL [facility] RDW CV 12.9 11.1 - 14.9 % [facility] RDW SD 39.1 35.7 - 48.1 fL [facility] NRBC abs 0.00 0.00 - 0.01 K/cumm [facility] Blood 03/14/2023 7:41 PM CDT 03/14/2023 8:20 PM CDT us Josephine JARAMILLO LAB BLOOD ORDERABLES Shilpi l Result [facility] [place] [address] * POCT glucose (03/14/2023 5:44 PM CDT) [facility] Glucose, POC 137 70 - 199 mg/dL [facility] Blood 03/14/2023 5:44 PM CDT 03/14/2023 5:44 PM CDT us Neno Lei MD LAB POCT ORDERABLES - DEV ICE Final Result [facility] [place] [address] * POCT glucose (03/14/2023 1:43 PM CDT) Glucose, POC 162 70 - 199 mg/dL [facility] Blood 03/14/2023 1:43 PM CDT 03/14/2023 1:43 PM CDT Neno Lei MD LAB POCT ORDERABLES - DEV ICE Final Result Performing Organization Address [facility] Co de Phone Number [facility] [place] [address] * POCT glucose (03/14/2023 8:38 AM CDT) [facility] Glucose, POC 177 70 - 199 mg/dL [facility] Blood 03/14/2023 8:38 AM CDT 03/14/2023 8:38 AM CDT Neno Lei MD LAB POCT ORDERABLES - DEV ICE Final Result Performing Organization Address [facility] de Phone Number [facility] [place] [address] * eGFR (03/13/2023 10:14 PM CDT) [facility] eGFR >90 90 - 130 mL/min/1. 73 m2 [facility] Comment: Interpretive Data Reference Interval Normal ?>/= [...] Current interpretive data was last reviewed 2021. Blood 03/13/2023 10:1 4 PM CDT 03/13/2023 11:25 PM CDT Josephine JARAMILLO LAB BLOOD ORDERABLES Shilpi montano Result [facility] [place] [address] * Differential, auto (03/13/2023 10:14 PM CDT) Neutrophil abs 4.9 1.7 - 6.5 K/cumm [facility] Imm gran abs 0.1 0.0 - 0.1 K/cumm [facility] Lymphocyte abs 2.5 0.8 - 3.3 K/cumm [facility] Monocyte abs 0.8 0.2 - 0.8 K/cumm [facility] Eosinophil abs 0.3 0.0 - 0.5 K/cumm [facility] Basophil abs 0.0 0.0 - 0.1 K/cumm [facility] Neutrophil pct 56.6 % [facility] Comment: Interpretive Data Percent cell count reference ranges are not reported, since discordance with absolute values may lead to misinterpretation of CBC data. Current Interpretive Data was last revised on 2017. Imm gran pct 1.5 % [facility] Comment: Interpretive Data Percent cell count reference ranges are not reported, since discordance with absolute values may lead to misinterpretation of CBC data. Current Interpretive Data was last revised on 2017. Lymphocyte pct 29.2 % [facility] Comment: Interpretive Data Percent cell count reference ranges are not reported, since discordance with absolute values may lead to misinterpretation of CBC data. Current Interpretive Data was last revised on 2017. Monocyte pct 8.8 % [facility] Comment: Interpretive Data Percent cell count reference ranges are not reported, since discordance with absolute values may lead to misinterpretation of CBC data. Current Interpretive Data was last revised on 2017. Eosinophil pct 3.6 % [facility] Comment: Interpretive Data Percent cell count reference ranges are not reported, since discordance with absolute values may lead to misinterpretation of CBC data. Current Interpretive Data was last revised on 2017. Basophil pct 0.3 % [facility] Comment: Interpretive Data Percent cell count reference ranges are not reported, since discordance with absolute values may lead to misinterpretation of CBC data. Current Interpretive Data was last revised on 2017. Blood 03/13/2023 10:1 4 PM CDT 03/13/2023 11:25 PM CDT Josephine JARAMILLO LAB BLOOD ORDERABLES Shilip montano Result [facility] [place] [address] * (ABNORMAL) Basic metabolic panel (03/13/2023 10:14 PM CDT) Sodium 139 135 - 145 mmol/L [facility] Potassium, pl 3.8 3.3 - 4.9 mmol/L [facility] Chloride 97 97 - 110 mmol/L [facility] CO2 34(H) 22 - 32 mmol/L [facility] Anion gap 8 2 - 15 mmol/L [facility] BUN 5(L) 6 - 25 mg/dL [facility] Creatinine 0.71(L) 0.80 - 1.30 mg/dL [facility] Glucose 147 70 - 199 mg/dL [facility] Comment: Interpretive Data Fasting glucose >/= 126 [...] Current interpretive data was last revised 2022. Calcium 8.3(L) 8.5 - 10.3 mg/dL [facility] Blood 03/13/2023 10:1 4 PM CDT 03/13/2023 11:25 PM CDT Josephine JARAMILLO LAB BLOOD ORDERABLES Shilpi montano Result [facility] [place] [address] * (ABNORMAL) CBC with auto differential (03/13/2023 10:14 PM CDT) WBC 8.7 3.8 - 9.9 K/cumm [facility] Hgb 10.4(L) 13.0 - 17.5 g/dL [facility] Hct 32.5(L) 38.9 - 50.3 % [facility] Plt 202 150 - 400 K/cumm [facility] MPV 9.0(L) 9.1 - 12.3 fL [facility] RBC 3.81(L) 4.30 - 5.80 M/cumm [facility] MCV 85.3 81.3 - 96.4 fL [facility] MCH 27.3 27.1 - 33.3 pg [facility] MCHC 32.0(L) 32.3 - 35.7 g/dL [facility] RDW CV 13.0 11.1 - 14.9 % [facility] RDW SD 40.0 35.7 - 48.1 fL [facility] NRBC abs 0.00 0.00 - 0.01 K/cumm [facility] Blood 03/13/2023 10:1 4 PM CDT 03/13/2023 11:25 PM CDT Josephine JARAMILLO LAB BLOOD ORDERABLES Shilpi l Result Performing Organization Address [facility] Co de Phone Number [facility] [place] [address] * POCT glucose (03/13/2023 7:53 PM CDT) Glucose, POC 143 70 - 199 mg/dL [facility] Blood 03/13/2023 7:53 PM CDT 03/13/2023 7:53 PM CDT Neno Lei MD LAB POCT ORDERABLES - DEV ICE Final Result Performing Organization Address [facility] Co de Phone Number [facility] [place] [address] * POCT glucose (03/13/2023 5:37 PM CDT) Glucose, POC 178 70 - 199 mg/dL [facility] Blood 03/13/2023 5:37 PM CDT 03/13/2023 5:37 PM CDT Neno Lei MD LAB POCT ORDERABLES - DEV ICE Final Result Performing Organization Address [facility] Co de Phone Number [facility] [place] [address] * XR Wrist Left 3 or More Views (03/13/2023 5:00 PM CDT) Anatomical Region Laterality Modality Upper Extremities, Wrist Left Compute d Radiography 03/13/2023 6:33 PM CDT Impressions 03/13/2023 6:33 PM CDT No left wrist fracture. Electronically signed by: Juan Jeter MD Narrative 03/13/2023 6:33 PM CDT EXAMINATION: XR WRIST LEFT 3 OR MORE VIEWS HISTORY: Left wrist pain FINDINGS: 3 views of the left wrist are submitted without comparison. Alignment is normal. ??There is no fracture. ??Minimal 1st carpometacarpal osteoarthritis. ??Mild soft tissue swelling of the left wrist. Procedure Note Juan Jeter MD - 03/13/2023 EXAMINATION: XR WRIST LEFT 3 OR MORE VIEWS HISTORY: Left wrist pain FINDINGS: 3 views of the left wrist are submitted without comparison. Alignment is normal. There is no fracture. Minimal 1st carpometacarpal osteoarthritis. Mild soft tissue swelling of the left wrist. IMPRESSION: No left wrist fracture. Electronically signed by: Juan Jeter MD Josephine JARAMILLO IMG XR PROCEDURES Final R esult * POCT glucose (03/13/2023 1:26 PM CDT) Glucose, POC 195 70 - 199 mg/dL [facility] Glucose comment 1 Glu2: RN/MD Notified [facility] Blood 03/13/2023 1:26 PM CDT 03/13/2023 1:26 PM CDT Neno Lei MD LAB POCT ORDERABLES - DEV ICE Final Result [facility] [place] [address] * POCT glucose (03/13/2023 12:16 PM CDT) Glucose, POC 191 70 - 199 mg/dL [facility] Blood 03/13/2023 12:1 6 PM CDT 03/13/2023 12:16 PM CDT Neno Lei MD LAB POCT ORDERABLES - DEV ICE Final Result Performing Organization Address City/[facility] Co de Phone Number [facility] [place] [address] * POCT glucose (03/13/2023 8:26 AM CDT) Pathologist [facility] Glucose, POC 154 70 - 199 mg/dL [facility] Blood 03/13/2023 8:26 AM CDT 03/13/2023 8:26 AM CDT Neno Lei MD LAB POCT ORDERABLES - DEV ICE Final Result Performing Organization Address [facility] de Phone Number [facility] [place] [address] * eGFR (03/12/2023 10:44 PM CDT) [facility] eGFR >90 90 - 130 mL/min/1. 73 m2 [facility] Comment: Interpretive Data Reference Interval Normal ?>/= [...] Current interpretive data was last reviewed 2021. Blood 03/12/2023 10:4 4 PM CDT 03/12/2023 11:24 PM CDT Josephine JARAMILLO LAB BLOOD ORDERABLES Shilpi dusty Result [facility] [place] [address] * (ABNORMAL) Differential, auto (03/12/2023 10:44 PM CDT) Neutrophil abs 6.1 1.7 - 6.5 K/cumm [facility] Imm gran abs 0.2(H) 0.0 - 0.1 K/cumm [facility] Lymphocyte abs 2.4 0.8 - 3.3 K/cumm [facility] Monocyte abs 0.7 0.2 - 0.8 K/cumm [facility] Eosinophil abs 0.3 0.0 - 0.5 K/cumm [facility] Basophil abs 0.0 0.0 - 0.1 K/cumm [facility] Neutrophil pct 63.1 % [facility] Comment: Interpretive Data Percent cell count reference ranges are not reported, since discordance with absolute values may lead to misinterpretation of CBC data. Current Interpretive Data was last revised on 2017. Imm gran pct 1.7 % [facility] Comment: Interpretive Data Percent cell count reference ranges are not reported, since discordance with absolute values may lead to misinterpretation of CBC data. Current Interpretive Data was last revised on 2017. Lymphocyte pct 24.9 % [facility] Comment: Interpretive Data Percent cell count reference ranges are not reported, since discordance with absolute values may lead to misinterpretation of CBC data. Current Interpretive Data was last revised on 2017. Monocyte pct 7.1 % [facility] Comment: Interpretive Data Percent cell count reference ranges are not reported, since discordance with absolute values may lead to misinterpretation of CBC data. Current Interpretive Data was last revised on 2017. Eosinophil pct 2.8 % [facility] Comment: Interpretive Data Percent cell count reference ranges are not reported, since discordance with absolute values may lead to misinterpretation of CBC data. Current Interpretive Data was last revised on 2017. Basophil pct 0.4 % [facility] Comment: Interpretive Data Percent cell count reference ranges are not reported, since discordance with absolute values may lead to misinterpretation of CBC data. Current Interpretive Data was last revised on 2017. Blood 03/12/2023 10:4 4 PM CDT 03/12/2023 11:23 PM CDT Josephine JARAMILLO LAB BLOOD ORDERABLES Shilpi montano Result [facility] [place] [address] * (ABNORMAL) Basic metabolic panel (03/12/2023 10:44 PM CDT) Sodium 136 135 - 145 mmol/L [facility] Potassium, pl 3.8 3.3 - 4.9 mmol/L [facility] Chloride 98 97 - 110 mmol/L [facility] CO2 32 22 - 32 mmol/L [facility] Anion gap 6 2 - 15 mmol/L [facility] BUN 7 6 - 25 mg/dL [facility] Creatinine 0.65(L) 0.80 - 1.30 mg/dL [facility] Glucose 196 70 - 199 mg/dL [facility] Comment: Interpretive Data Fasting glucose >/= 126 [...] classification and Diagnosis of Diabetes Diabetes Care 2022; 46: [id number]. Current interpretive data was last revised 2022. Calcium 8.0(L) 8.5 - 10.3 mg/dL [facility] Blood 03/12/2023 10:4 4 PM CDT 03/12/2023 11:24 PM CDT Josephine Joe JARAMILLO LAB BLOOD ORDERABLES Shilpi l Result Performing Organization Address City/[facility]/ZIP Co de Phone Number [facility] Department [place] [address] * (ABNORMAL) CBC with auto differential (03/12/2023 10:44 PM CDT) [facility] WBC 9.7 3.8 - 9.9 K/cumm [facility] Hgb 11.0(L) 13.0 - 17.5 g/dL [facility] Hct 33.8(L) 38.9 - 50.3 % [facility] Plt 226 150 - 400 K/cumm [facility] MPV 8.9(L) 9.1 - 12.3 fL [facility] RBC 4.02(L) 4.30 - 5.80 M/cumm [facility] MCV 84.1 81.3 - 96.4 fL [facility] MCH 27.4 27.1 - 33.3 pg [facility] MCHC 32.5 32.3 - 35.7 g/dL [facility] RDW CV 12.7 11.1 - 14.9 % [facility] RDW SD 38.6 35.7 - 48.1 fL [facility] NRBC abs 0.00 0.00 - 0.01 K/cumm [facility] Blood 03/12/2023 10:4 4 PM CDT 03/12/2023 11:23 PM CDT Josephine JARAMILLO LAB BLOOD ORDERABLES Shilpi l Result Performing Organization Address City/[facility]/ZIP Co de Phone Number [facility] [place] [address] * Type and screen (03/12/2023 10:44 PM CDT) Keenan, indirect Negative [facility] [facility] ABO Rh B Negative [facility] Blood 03/12/2023 10:4 4 PM CDT 03/12/2023 11:12 PM CDT Narrative [facility] - 03/13/2023 12:37 AM CDT Has the patient had Daratumumab or Isatuximab in the past 6 months?->Unknown Matheus JARAMILLO LAB BLOOD BANK TEST ORDERAB LES Final Result Performing Organization Address City/[facility]/ZIP Co de Phone Number [facility] [place] [address] * POCT glucose (03/12/2023 8:38 PM CDT) Glucose, POC 180 70 - 199 mg/dL [facility] Blood 03/12/2023 8:38 PM CDT 03/12/2023 8:38 PM CDT Neno Lei MD LAB POCT ORDERABLES - DEV ICE Final Result Performing Organization Address [facility]/ZIP Co de Phone Number [facility] Department [place] [address] * POCT glucose (03/12/2023 4:56 PM CDT) Glucose, POC 174 70 - 199 mg/dL [facility] Blood 03/12/2023 4:56 PM CDT 03/12/2023 4:56 PM CDT Neno Lei MD LAB POCT ORDERABLES - DEV ICE Final Result Performing Organization Address [facility]/ZIP Co de Phone Number [facility] [place] [address] * POCT glucose (03/12/2023 3:12 PM CDT) Glucose, POC 166 70 - 199 mg/dL [facility] Blood 03/12/2023 3:12 PM CDT 03/12/2023 3:12 PM CDT Neno Lei MD LAB POCT ORDERABLES - DEV ICE Final Result Performing Organization Address [facility]/ZIP Co de Phone Number [facility] [place] [address] * POCT glucose (03/12/2023 1:22 PM CDT) Glucose, POC 156 70 - 199 mg/dL [facility] Blood 03/12/2023 1:22 PM CDT 03/12/2023 1:22 PM CDT Neno Lei MD LAB POCT ORDERABLES - DEV ICE Final Result Performing Organization Address [facility] Co de Phone Number [facility] [place] [address] * POCT glucose (03/12/2023 9:26 AM CDT) Glucose, POC 141 70 - 199 mg/dL [facility] Blood 03/12/2023 9:26 AM CDT 03/12/2023 9:26 AM CDT Neno Lei MD LAB POCT ORDERABLES - DEV ICE Final Result Performing Organization Address [facility] Co de Phone Number [facility] [place] [address] * POCT glucose (03/12/2023 7:43 AM CDT) Glucose, POC 169 70 - 199 mg/dL [facility] Blood 03/12/2023 7:43 AM CDT 03/12/2023 7:43 AM CDT Neno Lei MD LAB POCT ORDERABLES - DEV ICE Final Result [facility] [place] [address] * eGFR (03/11/2023 10:31 PM CDT) eGFR >90 90 - 130 mL/min/1. 73 m2 [facility] Comment: Interpretive Data Reference Interval Normal ?>/= [...] Current interpretive data was last reviewed 2021. Blood 03/11/2023 10:3 1 PM CDT 03/11/2023 11:49 PM CDT us Josephine JARAMILLO LAB BLOOD ORDERABLES Shilpi montano Result [facility] [place] [address] * (ABNORMAL) Differential, auto (03/11/2023 10:31 PM CDT) Neutrophil abs 4.6 1.7 - 6.5 K/cumm [facility] Imm gran abs 0.2(H) 0.0 - 0.1 K/cumm [facility] Lymphocyte abs 3.0 0.8 - 3.3 K/cumm [facility] Monocyte abs 0.7 0.2 - 0.8 K/cumm [facility] Eosinophil abs 0.3 0.0 - 0.5 K/cumm [facility] Basophil abs 0.0 0.0 - 0.1 K/cumm [facility] Neutrophil pct 52.0 % [facility] Comment: Interpretive Data Percent cell count reference ranges are not reported, since discordance with absolute values may lead to misinterpretation of CBC data. Current Interpretive Data was last revised on 2017. Imm gran pct 2.4 % [facility] Comment: Interpretive Data Percent cell count reference ranges are not reported, since discordance with absolute values may lead to misinterpretation of CBC data. Current Interpretive Data was last revised on 2017. Lymphocyte pct 33.8 % [facility] Comment: Interpretive Data Percent cell count reference ranges are not reported, since discordance with absolute values may lead to misinterpretation of CBC data. Current Interpretive Data was last revised on 2017. Monocyte pct 8.0 % [facility] Comment: Interpretive Data Percent cell count reference ranges are not reported, since discordance with absolute values may lead to misinterpretation of CBC data. Current Interpretive Data was last revised on 2017. Eosinophil pct 3.3 % [facility] Comment: Interpretive Data Percent cell count reference ranges are not reported, since discordance with absolute values may lead to misinterpretation of CBC data. Current Interpretive Data was last revised on 2017. Basophil pct 0.5 % [facility] Comment: Interpretive Data Percent cell count reference ranges are not reported, since discordance with absolute values may lead to misinterpretation of CBC data. Current Interpretive Data was last revised on 2017. Blood 03/11/2023 10:3 1 PM CDT 03/11/2023 11:57 PM CDT Josephine Joe JARAMILLO LAB BLOOD ORDERABLES Shilpi l Result Performing Organization Address [facility]/ZIP Co ga Phone Number [facility] [place] [address] * (ABNORMAL) Basic metabolic panel (03/11/2023 10:31 PM CDT) Pathologist [facility] Sodium 140 135 - 145 mmol/L [facility] Potassium, pl 3.8 3.3 - 4.9 mmol/L [facility] Chloride 101 97 - 110 mmol/L [facility] CO2 33(H) 22 - 32 mmol/L [facility] Anion gap 6 2 - 15 mmol/L [facility] BUN 8 6 - 25 mg/dL [facility] Creatinine 0.64(L) 0.80 - 1.30 mg/dL [facility] Glucose 176 70 - 199 mg/dL [facility] Comment: Interpretive Data Fasting glucose >/= 126 [...] Current interpretive data was last revised 2022. Calcium 8.1(L) 8.5 - 10.3 mg/dL [facility] Blood 03/11/2023 10:3 1 PM CDT 03/11/2023 11:49 PM CDT Josephine JARAMILLO LAB BLOOD ORDERABLES Shilpi l Result Performing Organization Address [facility]/ZIP Co de Phone Number [facility] [place] [address] * (ABNORMAL) CBC with auto differential (03/11/2023 10:31 PM CDT) Pathologist [facility] WBC 8.8 3.8 - 9.9 K/cumm [facility] Hgb 11.2(L) 13.0 - 17.5 g/dL [facility] Hct 34.8(L) 38.9 - 50.3 % [facility] Plt 248 150 - 400 K/cumm [facility] MPV 8.9(L) 9.1 - 12.3 fL [facility] RBC 4.07(L) 4.30 - 5.80 M/cumm [facility] MCV 85.5 81.3 - 96.4 fL [facility] MCH 27.5 27.1 - 33.3 pg [facility] MCHC 32.2(L) 32.3 - 35.7 g/dL [facility] RDW CV 12.9 11.1 - 14.9 % [facility] RDW SD 39.5 35.7 - 48.1 fL [facility] NRBC abs 0.00 0.00 - 0.01 K/cumm [facility] Blood 03/11/2023 10:3 1 PM CDT 03/11/2023 11:57 PM CDT us Josephine JARAMILLO LAB BLOOD ORDERABLES Shilpi l Result Performing Organization Address [facility]/ZIP Co de Phone Number [facility] [place] [address] * POCT glucose (03/11/2023 8:17 PM CDT) Pathologist [facility] Glucose, POC 196 70 - 199 mg/dL [facility] Blood 03/11/2023 8:17 PM CDT 03/11/2023 8:17 PM CDT us Neno Childsi MD LAB POCT ORDERABLES - DEV ICE Final Result Performing Organization Address [facility] Co de Phone Number [facility] [place] [address] * (ABNORMAL) POCT glucose (03/11/2023 5:25 PM CDT) Glucose, POC 205(H) 70 - 199 mg/dL [facility] Blood 03/11/2023 5:25 PM CDT 03/11/2023 5:25 PM CDT us Neno Lei MD LAB POCT ORDERABLES - DEV ICE Final Result Performing Organization Address [facility] de Phone Number [facility] [place] [address] * (ABNORMAL) POCT glucose (03/11/2023 11:51 AM CDT) Glucose, POC 241(H) 70 - 199 mg/dL [facility] Blood 03/11/2023 11:5 1 AM CDT 03/11/2023 11:51 AM CDT us Neno Lei MD LAB POCT ORDERABLES - DEV ICE Final Result Performing Organization Address [facility] de Phone Number [facility] [place] [address] * POCT glucose (03/11/2023 7:38 AM CDT) Glucose, POC 194 70 - 199 mg/dL [facility] Blood 03/11/2023 7:38 AM CDT 03/11/2023 7:38 AM CDT us Neno Lei MD LAB POCT ORDERABLES - DEV ICE Final Result Performing Organization Address [facility] Co de Phone Number NICOLASA VALENTIN [facility] [place] [address] * eGFR (03/10/2023 10:22 PM CDT) [facility] eGFR >90 90 - 130 mL/min/1. 73 m2 [facility] Comment: Interpretive Data Reference Interval Normal ?>/= [...] Current interpretive data was last reviewed 2021. Blood 03/10/2023 10:2 2 PM CDT 03/11/2023 12:10 AM CDT Marcos Browne NP LAB BLOOD ORDERABLES Final Result [facility]AS[facility] VALENTIN [facility] [place] [address] * (ABNORMAL) CBC without differential (03/10/2023 10:22 PM CDT) [facility] WBC 8.8 3.8 - 9.9 K/cumm [facility] Hgb 11.4(L) 13.0 - 17.5 g/dL [facility] Hct 35.0(L) 38.9 - 50.3 % [facility] Plt 270 150 - 400 K/cumm [facility] MPV 8.9(L) 9.1 - 12.3 fL [facility] RBC 4.17(L) 4.30 - 5.80 M/cumm [facility] MCV 83.9 81.3 - 96.4 fL [facility] MCH 27.3 27.1 - 33.3 pg [facility] MCHC 32.6 32.3 - 35.7 g/dL [facility] RDW CV 13.0 11.1 - 14.9 % [facility] RDW SD 39.6 35.7 - 48.1 fL [facility] NRBC abs 0.00 0.00 - 0.01 K/cumm [facility] Blood 03/10/2023 10:2 2 PM CDT 03/11/2023 12:10 AM CDT Marcos Browne NP LAB BLOOD ORDERABLES Final Result [facility] Department [place] [address] * Phosphorus (03/10/2023 10:22 PM CDT) [facility] Phosphorus, pl 2.9 2.3 - 4.5 mg/dL [facility] Blood 03/10/2023 10:2 2 PM CDT 03/11/2023 12:10 AM CDT Marcos Browne NP LAB BLOOD ORDERABLES Final Result Performing Organization Address City/[facility]/ZIP Co de Phone Number [facility] [place] [address] * Magnesium (03/10/2023 10:22 PM CDT) [facility] Magnesium 2.0 1.4 - 2.5 mg/dL [facility] Blood 03/10/2023 10:2 2 PM CDT 03/11/2023 12:10 AM CDT us Marcos Browne SOFTWARE TECHNICIAN LAB BLOOD ORDERABLES Final Result [facility] [place] [address] * (ABNORMAL) Basic metabolic panel (03/10/2023 10:22 PM CDT) [facility] Sodium 139 135 - 145 mmol/L [facility] Potassium, pl 4.1 3.3 - 4.9 mmol/L [facility] Chloride 101 97 - 110 mmol/L [facility] CO2 31 22 - 32 mmol/L [facility] Anion gap 7 2 - 15 mmol/L [facility] BUN 12 6 - 25 mg/dL [facility] Creatinine 0.68(L) 0.80 - 1.30 mg/dL [facility] Glucose 186 70 - 199 mg/dL [facility] Comment: Interpretive Data Fasting glucose >/= 126 [...] Current interpretive data was last revised 2022. Calcium 8.3(L) 8.5 - 10.3 mg/dL [facility] Blood 03/10/2023 10:2 2 PM CDT 03/11/2023 12:10 AM CDT Marcos Browne NP LAB BLOOD ORDERABLES Final Result Performing Organization Address [facility]/ZIP Co de Phone Number [facility] [place] [address] * POCT glucose (03/10/2023 10:07 PM CDT) Glucose, POC 183 70 - 199 mg/dL [facility] Blood 03/10/2023 10:0 7 PM CDT 03/10/2023 10:07 PM CDT us Hans Negron MD LAB POCT ORDERABLES - DEVICE Final Result Performing Organization Address [facility]/[place] [address] * (ABNORMAL) POCT glucose (03/10/2023 5:03 PM CDT) Glucose, POC 209(H) 70 - 199 mg/dL [facility] Blood 03/10/2023 5:03 PM CDT 03/10/2023 5:03 PM CDT us Hans Negron MD LAB POCT ORDERABLES - DEVICE Final Result Performing Organization Address [facility] [place] [address] * POCT glucose (03/10/2023 11:47 AM CDT) Glucose, POC 166 70 - 199 mg/dL [facility] Glucose comment 1 Glu2: RN/MD Notified [facility] Blood 03/10/2023 11:4 7 AM CDT 03/10/2023 11:47 AM CDT us Ursula Ferro MD LAB POCT ORDERABLES - DEVICE F inal Result Performing Organization Address [facility]/ZIP Co de Phone Number [facility] [place] [address] * POCT glucose (03/10/2023 8:28 AM CDT) Glucose, POC 141 70 - 199 mg/dL [facility] Blood 03/10/2023 8:28 AM CDT 03/10/2023 8:28 AM CDT us Ursula Ferro MD LAB POCT ORDERABLES - DEVICE F inal Result Performing Organization Address [facility] Co de Phone Number [facility] [place] [address] * (ABNORMAL) Tissue aerobic and anaerobic culture and gram stain Tissue Scrotum (03/10/2023 8:23 AM CDT) Direct Specimen Exam Stain: No polymorphonuclear leukocytes seen. Moderate Gram Positive Cocci [facility] Report Final Report: Few Mixed microorganisms. Includes the following: Rare Destiny glabrata For susceptibility results, refer to accession number [id number] on the scrotum abscess culture from 03/10/2023 (.) [facility] Organism MIXED MICROORGANISMS. [facility] Organism DESTINY GLABRATA [facility] Tissue (Scrotum) 03/10/2023 8:23 AM CDT 03/10/2023 10:51 AM CDT Narrative [facility] - 03/17/2023 7:49 AM CDT Left scrotal tissue Testing performed by [facility] ([phone]) Specimens submitted from normally sterile body sites will have all bacterial morphotypes identified. Specimens that contain grossly mixed jero and/or are from body sites that are not normally sterile will be examined for Staphylococcus aureus, Pseudomonas aeruginosa, beta-hemolytic strep, vancomycin-resistant Enterococcus, Bacteroides, Parabacteroides, Clostridium perfringens and fungus. If any of these are isolated, the organism will be reported. Current interpretive data was last revised on 2019. us Hans Negron MD LAB MICROBIOLOGY - GEN ERAL ORDERABLES Final Result Performing Organization Address [facility]/ZIP Co de Phone Number [facility] [place] [address] * (ABNORMAL) Aerobic and anaerobic culture and gram stain Abscess Scrotum (03/10/2023 8:21 AM CDT) Direct Specimen Exam Stain: Abundant polymorphonuclear leukocytes seen. Abundant Gram Positive Cocci NICOLAS[facility] VALENTIN Report Final Report: Few Mixed Gram-positive microorganisms Includes the following: Rare Destiny glabrata * ??* ??* ??* ??* ??* ??* ??* ??* ??* ??* ??* ??* ??* ??* ??* ??* ??* ??* ??* For assistance in the selection of antifungal therapy, an Infectious Disease consult is recommended. An interpretation of ? no interpretation? indicates that interpretive criteria are not available for this organism/antifungal combination. If results for amphotericin are needed, please contact the laboratory at [phone]. The Clinical and Laboratory Standards [place] M60 (2nd edition) breakpoints are used for interpretation of minimum inhibitory concentration results. The [employer] Yeast One panel is RESEARCH USE ONLY; it has not been cleared or approved by the U.S. Food and Drug Administration. These results are for informational purposes only. The performance characteristics of this yeast susceptibility method were evaluated by the [facility]. Interpretive criteria last updated Oct, 2020. * ??* ??* ??* ??* ??* ??* ??* ??* ??* ??* ??* ??* ??* ??* ??* ??* ??* ??* ??*(.) NICOLASA VALENTIN Organism MIXED GRAM POSITIVE [facility]ORGANISMS [facility] Organism DESTINY GLABRATA [facility] Abscess (Scrotum) 03/10/2023 8:21 AM CDT 03/10/2023 10:54 AM CDT Narrative NICOLASA VALENTIN - 03/16/2023 1:06 PM CDT Left Scrotal Abscess Testing performed by [facility] ([phone]) Specimens submitted from normally sterile body sites will have all bacterial morphotypes identified. Specimens that contain grossly mixed jero and/or are from body sites that are not normally sterile will be examined for Staphylococcus aureus, Pseudomonas aeruginosa, beta-hemolytic strep, vancomycin-resistant Enterococcus, Bacteroides, Parabacteroides, Clostridium perfringens and fungus. If any of these are isolated, the organism will be reported. Current interpretive data was last revised on 2019. Organism Antibiotic Method Susceptibility Destiny glabrata Micafungin (JEFF) INTERPRETATION 0.015 mcg/mL: Susceptible Destiny glabrata Voriconazole (JEFF) INTERPRETATION 1 mcg/mL: No Interpretation Destiny glabrata Itraconazole (JEFF) INTERPRETATION 1 mcg/mL: No Interpretation Destiny glabrata Fluconazole (JEFF) INTERPRETATION 32 mcg/mL: Susceptible Dose-dependent us Hans Negron MD LAB MICROBIOLOGY - GEN ERAL ORDERABLES Final Result NICOLASA VALENTIN [facility] [place] [address] * Critical Care (03/10/2023 7:32 AM CDT) Narrative Ursula Ferro MD - 03/10/2023 7:32 AM CDT Marcos Browne NP ? 03/10/2023 ??3:37 PM Critical Care Performed by: Marcos Browne NP Authorized by: Marcos Browne NP ?? CRITICAL CARE: ??Team: ??OTHER ??Shift: ??AM ??Level of Billing: ??Subsequent Hospital Visit Level 3 ??My time spent with this patient was 70 minutes: Critical Provider Statement: I have seen and examined the patient on this day of service. I have reviewed and confirmed the history, physical exam, laboratory, and radiographic data as documented in the ICU note. I have reviewed and discussed my treatment plan with the patient's team and other medical/corporate consultant staff. This time was in addition to and separate from care provided by other practitioners on this day of service. ?? us Marcos Browne NP IN CLINIC/BEDSIDE ORDERABL ES Final Result * (ABNORMAL) Differential, auto (03/10/2023 12:14 AM CDT) Neutrophil abs 6.9(H) 1.7 - 6.5 K/cumm NICOLASA BARNES Imm gran abs 0.4(H) 0.0 - 0.1 K/cumm [facility] Lymphocyte abs 2.4 0.8 - 3.3 K/cumm [facility] Monocyte abs 0.8 0.2 - 0.8 K/cumm [facility] Eosinophil abs 0.2 0.0 - 0.5 K/cumm [facility] Basophil abs 0.1 0.0 - 0.1 K/cumm [facility] Neutrophil pct 63.8 % [facility] Comment: Interpretive Data Percent cell count reference ranges are not reported, since discordance with absolute values may lead to misinterpretation of CBC data. Current Interpretive Data was last revised on 2017. Imm gran pct 3.4 % [facility] Comment: Interpretive Data Percent cell count reference ranges are not reported, since discordance with absolute values may lead to misinterpretation of CBC data. Current Interpretive Data was last revised on 2017. Lymphocyte pct 22.3 % [facility] Comment: Interpretive Data Percent cell count reference ranges are not reported, since discordance with absolute values may lead to misinterpretation of CBC data. Current Interpretive Data was last revised on 2017. Monocyte pct 7.8 % [facility] Comment: Interpretive Data Percent cell count reference ranges are not reported, since discordance with absolute values may lead to misinterpretation of CBC data. Current Interpretive Data was last revised on 2017. Eosinophil pct 2.1 % [facility] Comment: Interpretive Data Percent cell count reference ranges are not reported, since discordance with absolute values may lead to misinterpretation of CBC data. Current Interpretive Data was last revised on 2017. Basophil pct 0.6 % [facility] Comment: Interpretive Data Percent cell count reference ranges are not reported, since discordance with absolute values may lead to misinterpretation of CBC data. Current Interpretive Data was last revised on 2017. Blood 03/10/2023 12:1 4 AM CDT 03/10/2023 12:24 AM CDT us Matheus JARAMILLO LAB BLOOD ORDERABLES Final Result [facility] [place] [address] * (ABNORMAL) CBC with auto differential (03/10/2023 12:14 AM CDT) [facility] WBC 10.8(H) 3.8 - 9.9 K/cumm [facility] Hgb 11.2(L) 13.0 - 17.5 g/dL [facility] Hct 33.8(L) 38.9 - 50.3 % [facility] Plt 328 150 - 400 K/cumm [facility] MPV 9.1 9.1 - 12.3 fL [facility] RBC 4.05(L) 4.30 - 5.80 M/cumm [facility] MCV 83.5 81.3 - 96.4 fL [facility] MCH 27.7 27.1 - 33.3 pg [facility] MCHC 33.1 32.3 - 35.7 g/dL [facility] RDW CV 12.9 11.1 - 14.9 % [facility] RDW SD 39.2 35.7 - 48.1 fL [facility] NRBC abs 0.00 0.00 - 0.01 K/cumm [facility] Blood 03/10/2023 12:1 4 AM CDT 03/10/2023 12:24 AM CDT Matheus JARAMILLO LAB BLOOD ORDERABLES Final Result Performing Organization Address City/State/[facility] Phone Number [facility] [place] [address] * eGFR (03/09/2023 9:42 PM CDT) [facility] eGFR >90 90 - 130 mL/min/1. 73 m2 [facility] Comment: Interpretive Data Reference Interval Normal ?>/= [...] Current interpretive data was last reviewed 2021. Blood 03/09/2023 9:42 PM CDT 03/09/2023 9:52 PM CDT us Matheus JARAMILLO LAB BLOOD ORDERABLES Final Result MARCUSPAT BARBIE [facility] [place] [address] * (ABNORMAL) Diabetes Mellitus Type 1 Evaluation (03/09/2023 9:42 PM CDT) Insulin ab 0.00 0.00 - 0.02 nmol/L NICOLASA VALENTIN Comment: ADDITIONAL INFORMATION This test was developed and its performance characteristics determined by [facility] in a manner consistent with CLIA requirements. This test has not been cleared or approved by the U.S. Food and Drug Administration. GAD65 ab ser 0.31(H) <=0.02 nmol/L NICOALSA BARNES Comment: ADDITIONAL INFORMATION This test was developed and its performance characteristics determined by [facility] in a manner consistent with CLIA requirements. This test has not been cleared or approved by the U.S. Food and Drug Administration. IA-2 Ab 0.00 <=0.02 nmol/L NICOLASA BARNES Comment: ADDITIONAL INFORMATION This test was developed and its performance characteristics determined by [facility] in a manner consistent with CLIA requirements. This test has not been cleared or approved by the U.S. Food and Drug Administration. Diabetes, type 1, interpretation See Footnote NICOLASA VALENTIN Comment: This profile is consistent with a diagnosis of type 1 diabetes mellitus. * When found in isolation, the sensitivities of these autoantibodies for type 1 diabetes are 74% (GAD65 antibody), 75% (IA-2 antibody), 69% (insulin antibody) and 69% (ZnT8). When all 4 antibodies are tested for, and at least 1 autoantibody is detected, the combined sensitivity for type 1 diabetes is 98%, with a specificity of 98-100%. * These autoantibodies may also be detectable before the clinical onset of diabetes. The cumulative risk of a seropositive patient developing diabetes is 17% for 1 antibody, 39% for 2 antibodies, 70% for 3 antibodies, and 80% for 4 antibodies. * References: Anisha BUSH. Clinical applications of diabetes antibody testing. The Journal of clinical endocrinology and metabolism 2010;95:25-33. * Yancy M, Prince P, Gerry M, Luz Marina R, Andrea M, Petra L, Adal J, Igor M, Varinder Gallardo, Nehal HORN, Tad Carrera. 3 Screen islet cell autoantibody BARB: A sensitive and specific BARB for the combined measurement of autoantibodies to MILTON, to IA-2 and to ZnT8. Clin Ras Acta. 2016;462:60-64. * Anisha BUSH, Varinder Gallardo, Juan AJ, Darryl S, Oscar GF, Mimi EA. Prediction of IDDM in the general population: strategies based on combinations of autoantibody markers. Diabetes. 1997;46:1701-10. * ZNT8 Antibodies <15.0 <15.0 units/mL [facility] Comment: ADDITIONAL INFORMATION This test has been modified from the chain hoist operator's instructions. Its performance characteristics were determined by [facility] in a manner consistent with CLIA requirements. This test has not been cleared or approved by the U.S. Food and Drug Administration. Test Performed by: [address] [address] Licensed Tax Consultant: Maxx Rollins M.D. Ph.D.; CLIA# [id number] Blood 03/09/2023 9:42 PM CDT 03/10/2023 9:15 AM CDT Ursula Ferro MD LAB BLOOD ORDERABLES Final Res ult Performing Organization Address City/[facility]/ZIP Co de Phone Number [facility] Department [place] [address] * (ABNORMAL) PTH (03/09/2023 9:42 PM CDT) Pathologist [facility] PTH 12(L) 15 - 65 pg/mL [facility] Blood 03/09/2023 9:42 PM CDT 03/09/2023 9:54 PM CDT Matheus JARAMILLO LAB BLOOD ORDERABLES Final Result [facility] [place] [address] * Phosphorus (03/09/2023 9:42 PM CDT) Pathologist [facility] Phosphorus, pl 2.8 2.3 - 4.5 mg/dL [facility] Blood 03/09/2023 9:42 PM CDT 03/09/2023 9:52 PM CDT Matheus JARAMILLO LAB BLOOD ORDERABLES Final Result [facility] [place] [address] * Magnesium (03/09/2023 9:42 PM CDT) Pathologist [facility] Magnesium 1.7 1.4 - 2.5 mg/dL [facility] Blood 03/09/2023 9:42 PM CDT 03/09/2023 9:52 PM CDT Matheus JARAMILLO LAB BLOOD ORDERABLES Final Result Performing Organization Address [facility] Co de Phone Number [facility] [place] [address] * (ABNORMAL) Comprehensive metabolic panel (03/09/2023 9:42 PM CDT) [facility] Sodium 137 135 - 145 mmol/L [facility] Potassium, pl 4.2 3.3 - 4.9 mmol/L [facility] Chloride 101 97 - 110 mmol/L [facility] CO2 28 22 - 32 mmol/L [facility] Anion gap 8 2 - 15 mmol/L [facility] BUN 11 6 - 25 mg/dL [facility] Creatinine 0.56(L) 0.80 - 1.30 mg/dL [facility] Glucose 184 70 - 199 mg/dL [facility] Comment: Interpretive Data Fasting glucose >/= 126 [...] Current interpretive data was last revised 2022. Calcium 8.5 8.5 - 10.3 mg/dL [facility] Bilirubin, total 0.2 0.1 - 1.2 mg/dL [facility] Protein, pl 5.4(L) 6.5 - 8.5 g/dL [facility] Albumin 2.2(L) 3.5 - 5.0 g/dL [facility] Alk phos 100 40 - 130 Units/L [facility] ALT 16 7 - 55 Units/L [facility] AST 25 10 - 50 Units/L [facility] Blood 03/09/2023 9:42 PM CDT 03/09/2023 9:52 PM CDT Matheus JARAMILLO LAB BLOOD ORDERABLES Final Result Performing Organization Address [facility] Co de Phone Number [facility] [place] [address] * POCT glucose (03/09/2023 9:15 PM CDT) Glucose, POC 186 70 - 199 mg/dL [facility] Blood 03/09/2023 9:15 PM CDT 03/09/2023 9:15 PM CDT Ursula Ferro MD LAB POCT ORDERABLES - DEVICE F inal Result Performing Organization Address [facility] Co de Phone Number [facility] [place] [address] * Calcium, ionized, whole blood (03/09/2023 9:07 PM CDT) Ca, ionized, bld 4.86 4.50 - 5.10 mg/dL [facility] Blood 03/09/2023 9:07 PM CDT 03/09/2023 9:43 PM CDT Matheus JARAMILLO LAB BLOOD ORDERABLES Final Result Performing Organization Address [facility]/ZIP Co de Phone Number [facility] [place] [address] * Critical Care (03/09/2023 8:22 PM CDT) Narrative Matheus Frias PA - 03/09/2023 8:22 PM CDT Matheus Frias PA ? 03/10/2023 ??4:58 AM Critical Care Performed by: Matheus Frias PA Authorized by: Matheus Frias PA ?? CRITICAL CARE: ??Team: ??OTHER ??Shift: ??PM ??Level of Billing: ??Subsequent Hospital Visit Level 3 ??My time spent with this patient was 60 minutes: Critical Provider Statement: I have seen and examined the patient on this day of service. I have reviewed and confirmed the history, physical exam, laboratory, and radiographic data as documented in the ICU note. I have reviewed and discussed my treatment plan with the patient's team and other medical/corporate consultant staff. This time was in addition to and separate from care provided by other practitioners on this day of service. ?? us Matheus JARAMILLO IN CLINIC/BEDSIDE ORDERABLE S Final Result * POCT glucose (03/09/2023 4:55 PM CDT) Glucose, POC 189 70 - 199 mg/dL [facility] Blood 03/09/2023 4:55 PM CDT 03/09/2023 4:55 PM CDT us Ursula Ferro MD LAB POCT ORDERABLES - DEVICE F inal Result NICOLASA VALENTIN [facility] [place] [address] * POCT glucose (03/09/2023 11:26 AM CDT) Glucose, POC 194 70 - 199 mg/dL [facility] Blood 03/09/2023 11:2 6 AM CDT 03/09/2023 11:26 AM CDT Ursula Ferro MD LAB POCT ORDERABLES - DEVICE F inal Result Performing Organization Address [facility] Co de Phone Number [facility] [place] [address] * Critical Care (03/09/2023 7:52 AM CDT) Narrative Ursula Ferro MD - 03/09/2023 7:52 AM CDT Marcos Browne NP ? 03/09/2023 ??6:25 PM Critical Care Performed by: Marcos Browne NP Authorized by: Marcos Browne NP ?? CRITICAL CARE: ??Team: ??OTHER ??Shift: ??AM ??Level of Billing: ??Subsequent Hospital Visit Level 3 ??My time spent with this patient was 60 minutes: Critical Provider Statement: I have seen and examined the patient on this day of service. I have reviewed and confirmed the history, physical exam, laboratory, and radiographic data as documented in the ICU note. I have reviewed and discussed my treatment plan with the patient's team and other medical/corporate consultant staff. This time was in addition to and separate from care provided by other practitioners on this day of service. ?? us Marcos Browne NP IN CLINIC/BEDSIDE ORDERABL ES Final Result * POCT glucose (03/09/2023 7:34 AM CDT) Glucose, POC 181 70 - 199 mg/dL [facility] Blood 03/09/2023 7:34 AM CDT 03/09/2023 7:34 AM CDT us Ursula Ferro MD LAB POCT ORDERABLES - DEVICE F inal Result Performing Organization Address [facility] Co de Phone Number NICOLASA [facility] [place] [address] * POCT glucose (03/09/2023 3:29 AM CDT) Glucose, POC 182 70 - 199 mg/dL [facility] Blood 03/09/2023 3:29 AM CDT 03/09/2023 3:29 AM CDT Ursula Ferro MD LAB POCT ORDERABLES - DEVICE F inal Result Performing Organization Address [facility] de Phone Number [facility] [place] [address] * POCT glucose (03/09/2023 12:06 AM CDT) Glucose, POC 187 70 - 199 mg/dL [facility] Blood 03/09/2023 12:0 6 AM CDT 03/09/2023 12:06 AM CDT Ursula Ferro MD LAB POCT ORDERABLES - DEVICE F inal Result Performing Organization Address [facility] de Phone Number [facility] [place] [address] * Critical Care (03/08/2023 10:30 PM CDT) Narrative Matheus Frias PA - 03/08/2023 10:30 PM CDT Mtaheus Frias PA ? 03/09/2023 ??5:06 AM Critical Care Performed by: Matheus Frias PA Authorized by: Matheus Frias PA ?? CRITICAL CARE: ??Team: ??OTHER ??Shift: ??PM ??Level of Billing: ??Subsequent Hospital Visit Level 3 ??My time spent with this patient was 60 minutes: Critical Provider Statement: I have seen and examined the patient on this day of service. I have reviewed and confirmed the history, physical exam, laboratory, and radiographic data as documented in the ICU note. I have reviewed and discussed my treatment plan with the patient's team and other medical/corporate consultant staff. This time was in addition to and separate from care provided by other practitioners on this day of service. ? I spent time discussing the management of this critically ill patient with consultants and the medical staff, I spent time documenting in the medical record and I spent time reviewing and interpreting data from bedside monitors, laboratory results, and imaging us Matheus JARAMILLO IN CLINIC/BEDSIDE ORDERABLE S Final Result * eGFR (03/08/2023 8:59 PM CDT) [facility] eGFR >90 90 - 130 mL/min/1. 73 m2 NICOLASA VALENTIN Comment: Interpretive Data Reference Interval Normal ?>/= [...] Current interpretive data was last reviewed 2021. Blood 03/08/2023 8:59 PM CDT 03/08/2023 9:13 PM CDT us Mckayla Iyer NP LAB BLOOD ORDERABL ES Final Result [facility] Department of Laboratories [place], [place] [id number] * (ABNORMAL) Vitamin D 25 hydroxy (03/08/2023 8:59 PM CDT) Pathologist [facility] Vitamin D 25-OH <6(L) 30 - 80 ng/mL [facility] Blood 03/08/2023 8:59 PM CDT 03/08/2023 9:07 PM CDT us Ursula Ferro MD LAB BLOOD ORDERABLES Final Res ult [facility] [place] [address] * (ABNORMAL) CBC without differential (03/08/2023 8:59 PM CDT) [facility] WBC 10.9(H) 3.8 - 9.9 K/cumm [facility] Hgb 10.5(L) 13.0 - 17.5 g/dL [facility] Hct 32.9(L) 38.9 - 50.3 % [facility] Plt 302 150 - 400 K/cumm [facility] MPV 9.0(L) 9.1 - 12.3 fL [facility] RBC 3.91(L) 4.30 - 5.80 M/cumm [facility] MCV 84.1 81.3 - 96.4 fL [facility] MCH 26.9(L) 27.1 - 33.3 pg [facility] MCHC 31.9(L) 32.3 - 35.7 g/dL [facility] RDW CV 13.3 11.1 - 14.9 % [facility] RDW SD 40.9 35.7 - 48.1 fL [facility] NRBC abs 0.00 0.00 - 0.01 K/cumm [facility] Blood 03/08/2023 8:59 PM CDT 03/08/2023 9:09 PM CDT us Mckayla Iyer NP LAB BLOOD ORDERABL ES Final Result NICOLASA [facility] [place] [address] * (ABNORMAL) Basic metabolic panel (03/08/2023 8:59 PM CDT) Sodium 138 135 - 145 mmol/L [facility] Potassium, pl 4.0 3.3 - 4.9 mmol/L [facility] Chloride 103 97 - 110 mmol/L [facility] CO2 26 22 - 32 mmol/L [facility] Anion gap 9 2 - 15 mmol/L [facility] BUN 10 6 - 25 mg/dL [facility] Creatinine 0.60(L) 0.80 - 1.30 mg/dL [facility] Glucose 215(H) 70 - 199 mg/dL [facility] Comment: Interpretive Data Fasting glucose >/= 126 [...] Current interpretive data was last revised 2022. Calcium 8.0(L) 8.5 - 10.3 mg/dL [facility] Blood 03/08/2023 8:59 PM CDT 03/08/2023 9:07 PM CDT us Mckayla Iyer NP LAB BLOOD ORDERABL ES Final Result Performing Organization Address City/[facility]/ZIP Co de Phone Number NICOLASA [facility] [place] [address] * POCT glucose (03/08/2023 7:34 PM CDT) Glucose, POC 194 70 - 199 mg/dL [facility] Blood 03/08/2023 7:34 PM CDT 03/08/2023 7:34 PM CDT Result Lilibeth Ferro MD LAB POCT ORDERABLES - DEVICE F inal Result Performing Organization Address [facility] Co de Phone Number [facility] [place] [address] * POCT glucose (03/08/2023 4:39 PM CDT) Glucose, POC 152 70 - 199 mg/dL [facility] Blood 03/08/2023 4:39 PM CDT 03/08/2023 4:39 PM CDT Result Lilibeth Ferro MD LAB POCT ORDERABLES - DEVICE F inal Result Performing Organization Address [facility] de Phone Number [facility] [place] [address] * POCT glucose (03/08/2023 12:03 PM CDT) Glucose, POC 155 70 - 199 mg/dL [facility] Blood 03/08/2023 12:0 3 PM CDT 03/08/2023 12:03 PM CDT Result Lilibeth Ferro MD LAB POCT ORDERABLES - DEVICE F inal Result Performing Organization Address [facility] [place] [address] * POCT glucose (03/08/2023 9:58 AM CDT) Glucose, POC 147 70 - 199 mg/dL [facility] Blood 03/08/2023 9:58 AM CDT 03/08/2023 9:58 AM CDT us Ursula Ferro MD LAB POCT ORDERABLES - DEVICE F inal Result Performing Organization Address [facility] Co de Phone Number NICOLASA [facility] [place] [address] * POCT glucose (03/08/2023 9:06 AM CDT) Glucose, POC 142 70 - 199 mg/dL [facility] Blood 03/08/2023 9:06 AM CDT 03/08/2023 9:06 AM CDT Ursula Ferro MD LAB POCT ORDERABLES - DEVICE F inal Result Performing Organization Address [facility] de Phone Number [facility] [place] [address] * Critical Care (03/08/2023 8:55 AM CDT) Narrative Ursula Ferro MD - 03/08/2023 8:55 AM CDT Mckayla Iyer NP ? 03/08/2023 11:45 AM Critical Care Performed by: Mckayla Iyer NP Authorized by: Mckayla Iyer NP ?? CRITICAL CARE: ??Team: ??OTHER ??Shift: ??AM ??Level of Billing: ??Subsequent Hospital Visit Level 3 ??My time spent with this patient was 45 minutes: Critical Provider Statement: I have seen and examined the patient on this day of service. I have reviewed and confirmed the history, physical exam, laboratory, and radiographic data as documented in the ICU note. I have reviewed and discussed my treatment plan with the patient's team and other medical/corporate consultant staff. This time was in addition to and separate from care provided by other practitioners on this day of service. ?? us Mckayla Iyer SOFTWARE TECHNICIAN IN CLINIC/BEDSIDE ORDERABLES Final Result * POCT glucose (03/08/2023 8:03 AM CDT) Glucose, POC 145 70 - 199 mg/dL [facility] Blood 03/08/2023 8:03 AM CDT 03/08/2023 8:03 AM CDT Ursula Ferro MD LAB POCT ORDERABLES - DEVICE F inal Result Performing Organization Address [facility] de Phone Number [facility] [place] [address] * POCT glucose (03/08/2023 6:59 AM CDT) Glucose, POC 146 70 - 199 mg/dL [facility] Blood 03/08/2023 6:59 AM CDT 03/08/2023 6:59 AM CDT Ursula Ferro MD LAB POCT ORDERABLES - DEVICE F inal Result Performing Organization Address [facility] de Phone Number [facility] [place] [address] * Vancomycin level random (03/08/2023 5:31 AM CDT) [facility] Vancomycin random 18.9 mcg/mL [facility] Comment: Interpretive Data No reference ranges have been established for random drug levels. Current Interpretive Data was last revised on 2020. Blood 03/08/2023 5:31 AM CDT 03/08/2023 6:26 AM CDT Matheus JARAMILLO LAB BLOOD ORDERABLES Final Result Performing Organization Address [facility] [place] [address] * (ABNORMAL) Diabetes Mellitus Type 1 Evaluation (03/08/2023 5:31 AM CDT) Pathologist [facility] Insulin ab 0.00 0.00 - 0.02 nmol/L [facility] Comment: ADDITIONAL INFORMATION This test was developed and its performance characteristics determined by [facility] in a manner consistent with CLIA requirements. This test has not been cleared or approved by the U.S. Food and Drug Administration. GAD65 ab ser 0.32(H) <=0.02 nmol/L [facility] Comment: ADDITIONAL INFORMATION This test was developed and its performance characteristics determined by [facility] in a manner consistent with CLIA requirements. This test has not been cleared or approved by the U.S. Food and Drug Administration. IA-2 Ab 0.00 <=0.02 nmol/L [facility] Comment: ADDITIONAL INFORMATION This test was developed and its performance characteristics determined by [facility] in a manner consistent with CLIA requirements. This test has not been cleared or approved by the U.S. Food and Drug Administration. Diabetes, type 1, interpretation See Footnote [facility] Comment: This profile is consistent with a diagnosis of type 1 diabetes mellitus. * When found in isolation, the sensitivities of these autoantibodies for type 1 diabetes are 74% (GAD65 antibody), 75% (IA-2 antibody), 69% (insulin antibody) and 69% (ZnT8). When all 4 antibodies are tested for, and at least 1 autoantibody is detected, the combined sensitivity for type 1 diabetes is 98%, with a specificity of 98-100%. * These autoantibodies may also be detectable before the clinical onset of diabetes. The cumulative risk of a seropositive patient developing diabetes is 17% for 1 antibody, 39% for 2 antibodies, 70% for 3 antibodies, and 80% for 4 antibodies. * References: Anisha BUSH. Clinical applications of diabetes antibody testing. The Journal of clinical endocrinology and metabolism 2010;95:25-33. * Yancy M, Prince P, Gerry M, Luz Marina R, Andrea M, Petra L, Adal J, Igor M, Varinder Gallardo, Nehal HORN, Tad Carrera. 3 Screen islet cell autoantibody BARB: A sensitive and specific BARB for the combined measurement of autoantibodies to MILTON, to IA-2 and to ZnT8. Clin Ras Acta. 2016;462:60-64. * Anisha BUSH, Varinder Gallardo, Juan AJ, Darryl S, Oscar GF, Mimi JAMIL. Prediction of IDDM in the general population: strategies based on combinations of autoantibody markers. Diabetes. 1997;46:1701-10. * ZNT8 Antibodies <15.0 <15.0 units/mL [facility] Comment: ADDITIONAL INFORMATION This test has been modified from the chain hoist operator's instructions. Its performance characteristics were determined by [facility] in a manner consistent with CLIA requirements. This test has not been cleared or approved by the U.S. Food and Drug Administration. Test Performed by: [facility] [place] [address] Licensed Tax Consultant: Maxx Rollins M.D. Ph.D.; CLIA# [id number] Blood 03/08/2023 5:31 AM CDT 03/08/2023 6:25 AM CDT us Matheus JARAMILLO LAB BLOOD ORDERABLES Final Result [facility] [place] [address] * C-peptide (03/08/2023 5:31 AM CDT) [facility] C-peptide 2.24 1.10 - 4.40 ng/mL [facility] Blood 03/08/2023 5:31 AM CDT 03/08/2023 6:25 AM CDT us Matheus JARAMILLO LAB BLOOD ORDERABLES Final Result Performing Organization Address [facility] Co de Phone Number [facility] [place] [address] * (ABNORMAL) Glutamic acid decarboxylase (03/08/2023 5:31 AM CDT) GAD65 ab ser 0.33(H) <=0.02 nmol/L [facility] Comment: The following antibody was identified: Glutamic Acid Decarboxylase. * This profile is consistent with predisposition to thyrogastric disorders, including thyroiditis, pernicious anemia, and type 1 diabetes, but has low specificity for neurological autoimmunity. ??GAD65 antibody values less than 2.00 nmol/L have a lower positive predictive value for neurological autoimmunity than values of 20.0 nmol/L and ??higher. * ADDITIONAL INFORMATION This test was developed and its performance characteristics determined by [facility] in a manner consistent with CLIA requirements. This test has not been cleared or approved by the U.S. Food and Drug Administration. Test Performed by: [facility] - [address] [address] Licensed Tax Consultant: Maxx Rollins M.D. Ph.D.; CLIA# [id number] Blood 03/08/2023 5:31 AM CDT 03/08/2023 6:25 AM CDT Matheus JARAMILLO LAB BLOOD ORDERABLES Final Result [facility] [place] [address] * POCT glucose (03/08/2023 5:19 AM CDT) Glucose, POC 171 70 - 199 mg/dL [facility] Blood 03/08/2023 5:19 AM CDT 03/08/2023 5:19 AM CDT us Ursula Frero MD LAB POCT ORDERABLES - DEVICE F inal Result Performing Organization Address [facility] Co de Phone Number [facility] [place] [address] * POCT glucose (03/08/2023 2:56 AM CDT) Glucose, POC 152 70 - 199 mg/dL [facility] Blood 03/08/2023 2:56 AM CDT 03/08/2023 2:56 AM CDT us Ursula Ferro MD LAB POCT ORDERABLES - DEVICE F inal Result Performing Organization Address [facility] de Phone Number [facility] [place] [address] * POCT glucose (03/08/2023 12:51 AM CDT) Glucose, POC 137 70 - 199 mg/dL [facility] Blood 03/08/2023 12:5 1 AM CDT 03/08/2023 12:51 AM CDT Carmen Monte MD LAB POCT ORDERABLES - DEVICE Final Result Performing Organization Address [facility] de Phone Number [facility] [place] [address] * POCT glucose (03/07/2023 10:43 PM CDT) Glucose, POC 125 70 - 199 mg/dL [facility] Blood 03/07/2023 10:4 3 PM CDT 03/07/2023 10:43 PM CDT us Carmen Monte MD LAB POCT ORDERABLES - DEVICE Final Result Performing Organization Address [facility]/ZIP Co de Phone Number [facility] [place] [address] * Critical Care (03/07/2023 9:04 PM CDT) Narrative Matheus Frias PA - 03/07/2023 9:04 PM CDT Matheus Frias PA ? 03/08/2023 ??5:46 AM Critical Care Performed by: Matheus Frias PA Authorized by: Matheus Frias PA ?? CRITICAL CARE: ??Team: ??OTHER ??Shift: ??PM ??Level of Billing: ??Subsequent Hospital Visit Level 3 ??My time spent with this patient was 65 minutes: Critical Provider Statement: I have seen and examined the patient on this day of service. I have reviewed and confirmed the history, physical exam, laboratory, and radiographic data as documented in the ICU note. I have reviewed and discussed my treatment plan with the patient's team and other medical/corporate consultant staff. This time was in addition to and separate from care provided by other practitioners on this day of service. ? I spent time reviewing and interpreting data from bedside monitors, laboratory results, and imaging, I spent time discussing the management of this critically ill patient with consultants and the medical staff and I spent time documenting in the medical record Matheus JARAMILLO IN CLINIC/BEDSIDE ORDERABLE S Final Result * POCT glucose (03/07/2023 8:29 PM CDT) [facility] Glucose, POC 129 70 - 199 mg/dL [facility] Blood 03/07/2023 8:29 PM CDT 03/07/2023 8:29 PM CDT Carmen Monte MD LAB POCT ORDERABLES - DEVICE Final Result Performing Organization Address [facility]/ZIP Co de Phone Number [facility] [place] [address] * eGFR (03/07/2023 8:27 PM CDT) Pathologist [facility] eGFR >90 90 - 130 mL/min/1. 73 m2 [facility] Comment: Interpretive Data Reference Interval Normal ?>/= [...] Current interpretive data was last reviewed 2021. Blood 03/07/2023 8:27 PM CDT 03/07/2023 8:56 PM CDT us Matheus JARAMILLO LAB BLOOD ORDERABLES Final Result [facility] [place] [address] * (ABNORMAL) Differential, auto (03/07/2023 8:27 PM CDT) Pathologist [facility] Neutrophil abs 10.1(H) 1.7 - 6.5 K/cumm [facility] Imm gran abs 0.3(H) 0.0 - 0.1 K/cumm [facility] Lymphocyte abs 2.5 0.8 - 3.3 K/cumm [facility] Monocyte abs 1.3(H) 0.2 - 0.8 K/cumm [facility] Eosinophil abs 0.2 0.0 - 0.5 K/cumm [facility] Basophil abs 0.1 0.0 - 0.1 K/cumm [facility] Neutrophil pct 69.8 % [facility] Comment: Interpretive Data Percent cell count reference ranges are not reported, since discordance with absolute values may lead to misinterpretation of CBC data. Current Interpretive Data was last revised on 2017. Imm gran pct 2.1 % [facility] Comment: Interpretive Data Percent cell count reference ranges are not reported, since discordance with absolute values may lead to misinterpretation of CBC data. Current Interpretive Data was last revised on 2017. Lymphocyte pct 17.3 % [facility] Comment: Interpretive Data Percent cell count reference ranges are not reported, since discordance with absolute values may lead to misinterpretation of CBC data. Current Interpretive Data was last revised on 2017. Monocyte pct 8.8 % [facility] Comment: Interpretive Data Percent cell count reference ranges are not reported, since discordance with absolute values may lead to misinterpretation of CBC data. Current Interpretive Data was last revised on 2017. Eosinophil pct 1.5 % [facility] Comment: Interpretive Data Percent cell count reference ranges are not reported, since discordance with absolute values may lead to misinterpretation of CBC data. Current Interpretive Data was last revised on 2017. Basophil pct 0.5 % [facility] Comment: Interpretive Data Percent cell count reference ranges are not reported, since discordance with absolute values may lead to misinterpretation of CBC data. Current Interpretive Data was last revised on 2017. Blood 03/07/2023 8:27 PM CDT 03/07/2023 8:56 PM CDT us Matheus JARAMILLO LAB BLOOD ORDERABLES Final Result [facility] [place] [address] * (ABNORMAL) Calcium, ionized, whole blood (03/07/2023 8:27 PM CDT) Pathologist [facility] Ca, ionized, bld 4.34(L) 4.50 - 5.10 mg/dL [facility] Blood 03/07/2023 8:27 PM CDT 03/07/2023 8:41 PM CDT Matheus JARAMILLO LAB BLOOD ORDERABLES Final Result Performing Organization Address [facility] de Phone Number [facility] [place] [address] * (ABNORMAL) CBC with auto differential (03/07/2023 8:27 PM CDT) [facility] WBC 14.5(H) 3.8 - 9.9 K/cumm [facility] Hgb 10.3(L) 13.0 - 17.5 g/dL [facility] Hct 32.4(L) 38.9 - 50.3 % [facility] Plt 297 150 - 400 K/cumm [facility] MPV 9.0(L) 9.1 - 12.3 fL [facility] RBC 3.80(L) 4.30 - 5.80 M/cumm [facility] MCV 85.3 81.3 - 96.4 fL [facility] MCH 27.1 27.1 - 33.3 pg [facility] MCHC 31.8(L) 32.3 - 35.7 g/dL [facility] RDW CV 13.6 11.1 - 14.9 % [facility] RDW SD 42.5 35.7 - 48.1 fL [facility] NRBC abs 0.00 0.00 - 0.01 K/cumm [facility] Blood 03/07/2023 8:27 PM CDT 03/07/2023 8:56 PM CDT Matheus JARAMILLO LAB BLOOD ORDERABLES Final Result [facility] [place] [address] * Magnesium (03/07/2023 8:27 PM CDT) [facility] Magnesium 2.5 1.4 - 2.5 mg/dL [facility] Blood 03/07/2023 8:27 PM CDT 03/07/2023 8:56 PM CDT Matheus JARAMILLO LAB BLOOD ORDERABLES Final Result Performing Organization Address [facility] Co de Phone Number [facility] [place] [address] * Phosphorus (03/07/2023 8:27 PM CDT) [facility] Phosphorus, pl 4.1 2.3 - 4.5 mg/dL [facility] Blood 03/07/2023 8:27 PM CDT 03/07/2023 8:56 PM CDT Matheus JARAMILLO LAB BLOOD ORDERABLES Final Result Performing Organization Address [facility] Co de Phone Number [facility] [place] [address] * (ABNORMAL) Comprehensive metabolic panel (03/07/2023 8:27 PM CDT) [facility] Sodium 139 135 - 145 mmol/L [facility] Potassium, pl 3.6 3.3 - 4.9 mmol/L [facility] Chloride 106 97 - 110 mmol/L [facility] CO2 24 22 - 32 mmol/L [facility] Anion gap 9 2 - 15 mmol/L [facility] BUN 14 6 - 25 mg/dL [facility] Creatinine 0.73(L) 0.80 - 1.30 mg/dL [facility] Glucose 136 70 - 199 mg/dL [facility] Comment: Interpretive Data Fasting glucose >/= 126 [...] Current interpretive data was last revised 2022. Calcium 7.8(L) 8.5 - 10.3 mg/dL [facility] Bilirubin, total 0.3 0.1 - 1.2 mg/dL [facility] Protein, pl 5.3(L) 6.5 - 8.5 g/dL [facility] Albumin 2.1(L) 3.5 - 5.0 g/dL [facility] Alk phos 118 40 - 130 Units/L [facility] ALT 17 7 - 55 Units/L [facility] AST 28 10 - 50 Units/L [facility]] Blood 03/07/2023 8:27 PM CDT 03/07/2023 8:56 PM CDT Matheus JARAMILLO LAB BLOOD ORDERABLES Final Result [facility] Department [place] [address] * POCT glucose (03/07/2023 7:08 PM CDT) [facility] Signature Glucose, POC 129 70 - 199 mg/dL [facility] Blood 03/07/2023 7:08 PM CDT 03/07/2023 7:08 PM CDT Carmen Monte MD LAB POCT ORDERABLES - DEVICE Final Result Performing Organization Address [facility]/ZIP Co de Phone Number [facility] [place] [address] * POCT glucose (03/07/2023 5:08 PM CDT) Glucose, POC 133 70 - 199 mg/dL [facility] Blood 03/07/2023 5:08 PM CDT 03/07/2023 5:08 PM CDT Carmen Monte MD LAB POCT ORDERABLES - DEVICE Final Result [facility] [place] [address] * eGFR (03/07/2023 4:49 PM CDT) Pathologist [facility] eGFR See Comment 90 - 130 [facility] Comment: Unable to calculate exact result. Interpretive Data Reference Interval Normal ?>/= 90 [...] Current interpretive data was last reviewed 2021. Blood 03/07/2023 4:49 PM CDT 03/07/2023 5:13 PM CDT Mckayla Iyer NP LAB BLOOD ORDERABL ES Final Result Performing Organization Address [facility] de Phone Number [facility] [place] [address] * (ABNORMAL) Beta-hydroxybutyrate (03/07/2023 4:49 PM CDT) Beta-Hydroxybut yrate 0.9(H) 0.0 - 0.5 mmol/L [facility] Blood 03/07/2023 4:49 PM CDT 03/07/2023 4:55 PM CDT Mckayla Iyer NP LAB BLOOD ORDERABL ES Final Result Performing Organization Address [facility] de Phone Number [facility] [place] [address] * Phosphorus (03/07/2023 4:49 PM CDT) Pathologist [facility] Phosphorus, pl See Comment 2.3 - 4.5 mg/dL [facility] Comment: Credited; Hemolyzed Specimen Telephone report made to: Javier (ARYAN) on 03/07/2023 17:52:34 CDT by KG . Blood 03/07/2023 4:49 PM CDT 03/07/2023 4:55 PM CDT Mckayla Iyer NP LAB BLOOD ORDERABL ES Final Result Performing Organization Address [facility] [place] [address] * Magnesium (03/07/2023 4:49 PM CDT) Pathologist [facility] Magnesium See Comment 1.4 - 2.5 mg/dL [facility] Comment: Credited; Hemolyzed Specimen Telephone report made to: Javier TRUJILLO) on 03/07/2023 17:52:34 CDT by KG . Blood 03/07/2023 4:49 PM CDT 03/07/2023 4:55 PM CDT Mckayla Iyer NP LAB BLOOD ORDERABL ES Final Result [facility] [place] [address] * Basic metabolic panel (03/07/2023 4:49 PM CDT) Sodium See Comment 135 - 145 mmol/L [facility] Comment: Credited; Hemolyzed Specimen Telephone report made to: Javier TRUJILLO) on 03/07/2023 17:52:34 CDT by KG . Potassium, pl See Comment 3.3 - 4.9 mmol/L [facility] Comment:Credited; Hemolyzed Specimen Chloride See Comment 97 - 110 mmol/L [facility] Comment:Credited; Hemolyzed Specimen CO2 See Comment 22 - 32 mmol/L [facility] Comment:Credited; Hemolyzed Specimen Anion gap See Comment 2 - 15 mmol/L [facility] Comment:Unable to calculate BUN See Comment 6 - 25 mg/dL [facility] Comment:Credited; Hemolyzed Specimen Creatinine See Comment 0.80 - 1.30 mg/dL [facility] Comment:Credited; Hemolyzed Specimen Glucose See Comment 70 - 199 mg/dL [facility] Comment: Credited; Hemolyzed Specimen Interpretive Data Fasting glucose >/= 126 mg/dl [...] Current interpretive data was last revised 2022. Calcium See Comment 8.5 - 10.3 mg/dL [facility] Comment:Credited; Hemolyzed Specimen Blood 03/07/2023 4:49 PM CDT 03/07/2023 4:55 PM CDT Mckayla Iyer NP LAB BLOOD ORDERABL ES Final Result Performing Organization Address [facility]/ZIP Co de Phone Number [facility] [place] [address] * POCT glucose (03/07/2023 4:05 PM CDT) Glucose, POC 138 70 - 199 mg/dL [facility] Blood 03/07/2023 4:05 PM CDT 03/07/2023 4:05 PM CDT Carmen Monte MD LAB POCT ORDERABLES - DEVICE Final Result Performing Organization Address [facility] Co de Phone Number [facility] [place] [address] * POCT glucose (03/07/2023 3:00 PM CDT) Glucose, POC 138 70 - 199 mg/dL [facility] Blood 03/07/2023 3:00 PM CDT 03/07/2023 3:00 PM CDT Carmen Monte MD LAB POCT ORDERABLES - DEVICE Final Result Performing Organization Address [facility]/ZIP Co de Phone Number [facility] [place] [address] * POCT glucose (03/07/2023 1:55 PM CDT) Glucose, POC 151 70 - 199 mg/dL [facility] Blood 03/07/2023 1:55 PM CDT 03/07/2023 1:55 PM CDT us Carmen Monte MD LAB POCT ORDERABLES - DEVICE Final Result Performing Organization Address [facility] de Phone Number [facility] [place] [address] * eGFR (03/07/2023 12:20 PM CDT) eGFR >90 90 - 130 mL/min/1. 73 m2 [facility] Comment: Interpretive Data Reference Interval Normal ?>/= [...] Current interpretive data was last reviewed 2021. Blood 03/07/2023 12:2 0 PM CDT 03/07/2023 12:35 PM CDT us Mckayla Iyer NP LAB BLOOD ORDERABL ES Final Result Performing Organization Address [facility]/State/ZIP Co de Phone Number [facility] [place] [address] * POCT glucose (03/07/2023 12:20 PM CDT) Glucose, POC 142 70 - 199 mg/dL [facility] Blood 03/07/2023 12:2 0 PM CDT 03/07/2023 12:20 PM CDT Carmen Monte MD LAB POCT ORDERABLES - [place] [address] * (ABNORMAL) Phosphorus (03/07/2023 12:20 PM CDT) Phosphorus, pl 4.8(H) 2.3 - 4.5 mg/dL [facility] Blood 03/07/2023 12:2 0 PM CDT 03/07/2023 12:35 PM CDT Mckayla Iyer NP LAB BLOOD ORDERABL ES Final Result Performing Organization Address [facility]/State/ZIP Co de Phone Number [facility] Department [place] [address] * Magnesium (03/07/2023 12:20 PM CDT) Magnesium 2.5 1.4 - 2.5 mg/dL [facility] Blood 03/07/2023 12:2 0 PM CDT 03/07/2023 12:35 PM CDT Mckayla Iyer NP LAB BLOOD ORDERABL ES Final Result [facility] [place] [address] * (ABNORMAL) Basic metabolic panel (03/07/2023 12:20 PM CDT) Sodium 139 135 - 145 mmol/L [facility] Potassium, pl 3.3 3.3 - 4.9 mmol/L [facility] Chloride 104 97 - 110 mmol/L [facility] CO2 24 22 - 32 mmol/L [facility] Anion gap 11 2 - 15 mmol/L [facility] BUN 13 6 - 25 mg/dL [facility] Creatinine 0.77(L) 0.80 - 1.30 mg/dL [facility] Glucose 142 70 - 199 mg/dL [facility] Comment: Interpretive Data Fasting glucose >/= 126 [...] Current interpretive data was last revised 2022. Calcium 8.2(L) 8.5 - 10.3 mg/dL [facility] Blood 03/07/2023 12:2 0 PM CDT 03/07/2023 12:35 PM CDT Mckayla Iyer NP LAB BLOOD ORDERABL ES Final Result [facility] [place] [address] * POCT glucose (03/07/2023 10:43 AM CDT) Glucose, POC 115 70 - 199 mg/dL [facility] Blood 03/07/2023 10:4 3 AM CDT 03/07/2023 10:43 AM CDT Carmen Monte MD LAB POCT ORDERABLES - DEVICE Final Result [facility] [place] [address] * POCT glucose (03/07/2023 9:35 AM CDT) Glucose, POC 127 70 - 199 mg/dL [facility] Blood 03/07/2023 9:35 AM CDT 03/07/2023 9:35 AM CDT Carmen Monte MD LAB POCT ORDERABLES - DEVICE Final Result Performing Organization Address [facility] de Phone Number [facility] [place] [address] * (ABNORMAL) Basic metabolic panel (03/07/2023 7:57 AM CDT) [facility] Sodium 137 135 - 145 mmol/L [facility] Potassium, pl 3.3 3.3 - 4.9 mmol/L [facility] Chloride 100 97 - 110 mmol/L [facility] CO2 25 22 - 32 mmol/L [facility] Anion gap 12 2 - 15 mmol/L [facility] BUN 13 6 - 25 mg/dL [facility] Creatinine 0.74(L) 0.80 - 1.30 mg/dL [facility] Glucose 125 70 - 199 mg/dL [facility] Comment: Interpretive Data Fasting glucose >/= 126 [...] Current interpretive data was last revised 2022. Calcium 8.1(L) 8.5 - 10.3 mg/dL [facility] Blood 03/07/2023 7:57 AM CDT 03/07/2023 8:11 AM CDT Carmen Monte MD LAB BLOOD ORDERABLES Final Result [facility] [place] [address] * eGFR (03/07/2023 7:57 AM CDT) eGFR >90 90 - 130 mL/min/1. 73 m2 [facility] Comment: Interpretive Data Reference Interval Normal ?>/= [...] of Race in Diagnosing Kidney Disease, JASN 202). The CKD-EPI equation should not be used for patients with unstable renal function and has not been validated in children and those over 70. Current interpretive data was last reviewed 2021. Blood 03/07/2023 7:57 AM CDT 03/07/2023 9:23 AM CDT Carmen Monte MD LAB BLOOD ORDERABLES Final Result Performing Organization Address [facility] Co de Phone Number [facility] [place] [address] * POCT glucose (03/07/2023 7:57 AM CDT) Glucose, POC 125 70 - 199 mg/dL [facility] Blood 03/07/2023 7:57 AM CDT 03/07/2023 7:57 AM CDT Carmen Monte MD LAB POCT ORDERABLES - DEVICE Final Result Performing Organization Address [facility] de Phone Number [facility] [place] [address] * (ABNORMAL) Beta-hydroxybutyrate (03/07/2023 7:57 AM CDT) Beta-Hydroxybut yrate 1.7(H) 0.0 - 0.5 mmol/L [facility] Blood 03/07/2023 7:57 AM CDT 03/07/2023 8:18 AM CDT Mckayla Iyer NP LAB BLOOD ORDERABL ES Final Result Performing Organization Address [facility] de Phone Number [facility] [place] [address] * Insulin antibody (03/07/2023 7:57 AM CDT) Insulin ab 0.01 0.00 - 0.02 nmol/L [facility] Comment: ADDITIONAL INFORMATION This test was developed and its performance characteristics determined by [facility] in a manner consistent with CLIA requirements. This test has not been cleared or approved by the U.S. Food and Drug Administration. Test Performed by: [address] [address] Licensed Tax Consultant: Maxx Rollins M.D. Ph.D.; CLIA# [id number] Blood 03/07/2023 7:57 AM CDT 03/07/2023 8:45 AM CDT Mckayla Iyer SOFTWARE TECHNICIAN LAB BLOOD ORDERABL ES Final Result Performing Organization Address [facility] Co de Phone Number [facility] [place] [address] * C-peptide (03/07/2023 7:57 AM CDT) C-peptide 1.84 1.10 - 4.40 ng/mL [facility] Blood 03/07/2023 7:57 AM CDT 03/07/2023 8:11 AM CDT Mckayla Iyer SOFTWARE TECHNICIAN LAB BLOOD ORDERABL ES Final Result Performing Organization Address [facility] de Phone Number [facility] [place] [address] * Critical Care (03/07/2023 7:06 AM CDT) Narrative Ursula Ferro MD - 03/07/2023 7:06 AM CDT Mckayla Iyer NP ? 03/07/2023 ??5:22 PM Critical Care Performed by: Mckayla Iyer NP Authorized by: Mckayla Iyer NP ?? CRITICAL CARE: ??Team: ??OTHER ??Shift: ??AM ??Level of Billing: ??Critical Care ??My time spent with this patient was 90 minutes: Critical Provider Statement: I have seen and examined the patient on this day of service. I have reviewed and confirmed the history, physical exam, laboratory and radiologic data as documented in the signed ICU note. I have reviewed and discussed my treatment plan with the ICU team and other medical/corporate consultant staff, making frequent assessments and decisions regarding this patient's complex medical care. Critical Care time was exclusive of time spent performing separately billed procedures, treating other patients, and teaching. This time was in addition to and separate from critical care provided by other practitioners in my group on this day of service. Critical Care was necessary to treat or prevent imminent or life-threatening deterioration of the following conditions: ? Hypo- or Hyperglycemia ??This time was spent by me doing the following: ? I spent time reviewing and interpreting data from bedside monitors, laboratory results, and imaging, I spent time discussing the management of this critically ill patient with consultants and the medical staff and I spent time documenting in the medical record Mckayla Iyer NP IN CLINIC/BEDSIDE ORDERABLES Final Result * POCT glucose (03/07/2023 6:55 AM CDT) Glucose, POC 116 70 - 199 mg/dL [facility] Blood 03/07/2023 6:55 AM CDT 03/07/2023 6:55 AM CDT Carmen Monte MD LAB POCT ORDERABLES - DEVICE Final Result Performing Organization Address [facility] Co de Phone Number [facility] Department [place] [address] * POCT glucose (03/07/2023 5:59 AM CDT) Glucose, POC 97 70 - 199 mg/dL [facility] Blood 03/07/2023 5:59 AM CDT 03/07/2023 5:59 AM CDT Carmen Monte MD LAB POCT ORDERABLES - DEVICE Final Result Performing Organization Address City/[facility]/ZIP Co de Phone Number [facility] [place] [address] * POCT glucose (03/07/2023 3:53 AM CDT) Glucose, POC 111 70 - 199 mg/dL [facility] Blood 03/07/2023 3:53 AM CDT 03/07/2023 3:53 AM CDT Carmen Monte MD LAB POCT ORDERABLES - DEVICE Final Result Performing Organization Address City/[facility]/[place] [address] * POCT glucose (03/07/2023 1:57 AM CDT) Glucose, POC 129 70 - 199 mg/dL [facility] Blood 03/07/2023 1:57 AM CDT 03/07/2023 1:57 AM CDT Carmen Monte MD LAB POCT ORDERABLES - DEVICE Final Result Performing Organization Address [facility] [place] [address] * POCT glucose (03/07/2023 1:01 AM CDT) Glucose, POC 132 70 - 199 mg/dL [facility] Blood 03/07/2023 1:01 AM CDT 03/07/2023 1:01 AM CDT Carmen Monte MD LAB POCT ORDERABLES - DEVICE Final Result Performing Organization Address [facility] [place] [address] * POCT glucose (03/06/2023 11:53 PM CDT) Glucose, POC 129 70 - 199 mg/dL [facility] Blood 03/06/2023 11:5 3 PM CDT 03/06/2023 11:53 PM CDT Carmen Monte MD LAB POCT ORDERABLES - DEVICE Final Result Performing Organization Address [facility] Co de Phone Number [facility] [place] [address] * POCT glucose (03/06/2023 10:56 PM CDT) Glucose, POC 139 70 - 199 mg/dL [facility] Blood 03/06/2023 10:5 6 PM CDT 03/06/2023 10:56 PM CDT Carmen Monte MD LAB POCT ORDERABLES - DEVICE Final Result Performing Organization Address [facility] Co de Phone Number [facility] [place] [address] * (ABNORMAL) POCT glucose (03/06/2023 9:54 PM CDT) Glucose, POC 249(H) 70 - 199 mg/dL [facility] Blood 03/06/2023 9:54 PM CDT 03/06/2023 9:54 PM CDT Carmen Monte MD LAB POCT ORDERABLES - DEVICE Final Result Performing Organization Address [facility] [place] [address] * (ABNORMAL) Lipid panel (03/06/2023 9:15 PM CDT) Cholesterol 106 30 - 199 mg/dL [facility] Comment: Interpretive Data Ages < or = [...] on 2018. Triglycerides 93 <=149 mg/dL [facility] Comment: Interpretive Data Ages [...] revised on 2018. HDL 20(L) >=40 mg/dL [facility] Comment: Interpretive Data Ages [...] on 2018. LDL, calculated 67 <=129 mg/dL [facility] Comment: Interpretive Data Ages < or [...] revised on 2018. Non-HDL Cholesterol 86 mg/[facility] Comment: Interpretive Data Ages < or [...] last revised on 2018. Chol/HDL ratio [address] [facility] [address] Blood 03/06/2023 9:15 PM CDT 03/06/2023 9:36 PM CDT Carmen Monte MD LAB BLOOD ORDERABLES Final Result Performing Organization Address [facility] Co de Phone Number [facility] [place] [address] * (ABNORMAL) Hemoglobin A1c (03/06/2023 9:15 PM CDT) [facility] Hgb A1C 13.3(H) 4.0 - 5.6 % [facility] Estimated Average Glucose 335 mg/dL [facility] Comment: The ADA recommends reporting an estimated Average Glucose (eAG) with all Hemoglobin A1c results using the equation derived from a study of 507 normal and diabetic adults. ??Minority populations were underrepresented and children were not included. ?? (Diabetes Care 2020; 43(S1): S66-S76). ??The eAG is not equivalent to a fasting glucose. Blood 03/06/2023 9:15 PM CDT 03/06/2023 9:33 PM CDT Carmen Monte MD LAB BLOOD ORDERABLES Final Result Performing Organization Address [facility] Co de Phone Number [facility] [place] [address] * eGFR (03/06/2023 9:15 PM CDT) [facility] eGFR >90 90 - 130 mL/min/1. 73 m2 [facility] Comment: Interpretive Data Reference Interval Normal ?>/= [...] of Race in Diagnosing Kidney Disease, JASN 202). The CKD-EPI equation should not be used for patients with unstable renal function and has not been validated in children and those over 70. Current interpretive data was last reviewed 2021. Blood 03/06/2023 9:15 PM CDT 03/06/2023 9:36 PM CDT us Matheus JARAMILLO LAB BLOOD ORDERABLES Final Result Performing Organization Address City/State/[facility] Co de Phone Number [facility] [place] [address] * (ABNORMAL) Differential, auto (03/06/2023 9:15 PM CDT) Neutrophil abs 16.7(H) 1.7 - 6.5 K/cumm [facility] Imm gran abs 0.4(H) 0.0 - 0.1 K/cumm [facility] Lymphocyte abs 2.1 0.8 - 3.3 K/cumm [facility] Monocyte abs 1.9(H) 0.2 - 0.8 K/cumm [facility] Eosinophil abs 0.1 0.0 - 0.5 K/cumm [facility] Basophil abs 0.1 0.0 - 0.1 K/cumm [facility] Neutrophil pct 78.4 % [facility] Comment: Interpretive Data Percent cell count reference ranges are not reported, since discordance with absolute values may lead to misinterpretation of CBC data. Current Interpretive Data was last revised on 2017. Imm gran pct 1.8 % [facility] Comment: Interpretive Data Percent cell count reference ranges are not reported, since discordance with absolute values may lead to misinterpretation of CBC data. Current Interpretive Data was last revised on 2017. Lymphocyte pct 9.8 % [facility] Comment: Interpretive Data Percent cell count reference ranges are not reported, since discordance with absolute values may lead to misinterpretation of CBC data. Current Interpretive Data was last revised on 2017. Monocyte pct 9.1 % [facility] Comment: Interpretive Data Percent cell count reference ranges are not reported, since discordance with absolute values may lead to misinterpretation of CBC data. Current Interpretive Data was last revised on 2017. Eosinophil pct 0.5 % [facility] Comment: Interpretive Data Percent cell count reference ranges are not reported, since discordance with absolute values may lead to misinterpretation of CBC data. Current Interpretive Data was last revised on 2017. Basophil pct 0.4 % [facility] Comment: Interpretive Data Percent cell count reference ranges are not reported, since discordance with absolute values may lead to misinterpretation of CBC data. Current Interpretive Data was last revised on 2017. Blood 03/06/2023 9:15 PM CDT 03/06/2023 9:35 PM CDT Matheus JARAMILLO LAB BLOOD ORDERABLES Final Result Performing Organization Address City/[facility]/ZIP Co de Phone Number [facility] [place] [address] * (ABNORMAL) Beta-hydroxybutyrate (03/06/2023 9:15 PM CDT) Beta-Hydroxybut yrate 0.9(H) 0.0 - 0.5 mmol/L [facility] Blood 03/06/2023 9:15 PM CDT 03/06/2023 9:33 PM CDT Matheus JARAMILLO LAB BLOOD ORDERABLES Final Result [facility] Department [place] [address] * (ABNORMAL) CBC with auto differential (03/06/2023 9:15 PM CDT) WBC 21.3(H) 3.8 - 9.9 K/cumm [facility] Hgb 11.6(L) 13.0 - 17.5 g/dL [facility] Hct 35.8(L) 38.9 - 50.3 % [facility] Plt 348 150 - 400 K/cumm [facility] MPV 9.3 9.1 - 12.3 fL [facility] RBC 4.23(L) 4.30 - 5.80 M/cumm [facility] MCV 84.6 81.3 - 96.4 fL [facility] MCH 27.4 27.1 - 33.3 pg [facility] MCHC 32.4 32.3 - 35.7 g/dL [facility] RDW CV 13.3 11.1 - 14.9 % [facility] RDW SD 41.1 35.7 - 48.1 fL [facility] NRBC abs 0.00 0.00 - 0.01 K/cumm [facility] Blood 03/06/2023 9:15 PM CDT 03/06/2023 9:35 PM CDT Matheus JARAMILLO LAB BLOOD ORDERABLES Final Result Performing Organization Address City/[facility]/ZIP Co de Phone Number [facility] [place] [address] * Lactate (03/06/2023 9:15 PM CDT) [facility] Lactate 1.9 0.7 - 2.0 mmol/L [facility] Blood 03/06/2023 9:15 PM CDT 03/06/2023 9:37 PM CDT Matheus JARAMILLO LAB BLOOD ORDERABLES Final Result Performing Organization Address City/[facility]/ZIP Co de Phone Number [facility] [place] [address] * (ABNORMAL) Calcium, ionized (03/06/2023 9:15 PM CDT) Pathologist [facility] Calcium, Ionized 4.15(L) 4.50 - 5.10 mg/dL [facility] Blood 03/06/2023 9:15 PM CDT 03/06/2023 9:33 PM CDT Matheus JARAMILLO LAB BLOOD ORDERABLES Final Result Performing Organization Address City/[facility]/[place] [address] * Phosphorus (03/06/2023 9:15 PM CDT) [facility] Phosphorus, pl 4.3 2.3 - 4.5 mg/dL [facility] Blood 03/06/2023 9:15 PM CDT 03/06/2023 9:36 PM CDT Matheus JARAMILLO LAB BLOOD ORDERABLES Final Result Performing Organization Address [facility]/[place] [address] * Magnesium (03/06/2023 9:15 PM CDT) [facility] Magnesium 2.0 1.4 - 2.5 mg/dL [facility] Blood 03/06/2023 9:15 PM CDT 03/06/2023 9:36 PM CDT Matheus JARAMILLO LAB BLOOD ORDERABLES Final Result [facility] [place] [address] * (ABNORMAL) Comprehensive metabolic panel (03/06/2023 9:15 PM CDT) Sodium 140 135 - 145 mmol/L [facility] Potassium, pl 3.5 3.3 - 4.9 mmol/L [facility] Chloride 101 97 - 110 mmol/L [facility] CO2 26 22 - 32 mmol/L [facility] Anion gap 13 2 - 15 mmol/L [facility] BUN 14 6 - 25 mg/dL [facility] Creatinine 0.79(L) 0.80 - 1.30 mg/dL [facility] Glucose 217(H) 70 - 199 mg/dL [facility] Comment: Interpretive Data Fasting glucose >/= 126 [...] Current interpretive data was last revised 2022. Calcium 8.3(L) 8.5 - 10.3 mg/dL [facility] Bilirubin, total 0.4 0.1 - 1.2 mg/dL [facility] Protein, pl 5.9(L) 6.5 - 8.5 g/dL [facility] Albumin 2.4(L) 3.5 - 5.0 g/dL [facility] Alk phos 113 40 - 130 Units/L [facility] ALT 15 7 - 55 Units/L [facility] AST 25 10 - 50 Units/L [facility] Blood 03/06/2023 9:15 PM CDT 03/06/2023 9:36 PM CDT us Matheus JARAMILLO LAB BLOOD ORDERABLES Final Result [facility] [place] [address] * (ABNORMAL) POCT glucose (03/06/2023 8:59 PM CDT) Glucose, POC 234(H) 70 - 199 mg/dL [facility] Blood 03/06/2023 8:59 PM CDT 03/06/2023 8:59 PM CDT Carmen Monte MD LAB POCT ORDERABLES - DEVICE Final Result Performing Organization Address [facility] Co de Phone Number [facility] [place] [address] * (ABNORMAL) POCT glucose (03/06/2023 7:56 PM CDT) Glucose, POC 238(H) 70 - 199 mg/dL [facility] Blood 03/06/2023 7:56 PM CDT 03/06/2023 7:56 PM CDT Carmen Monte MD LAB POCT ORDERABLES - DEVICE Final Result Performing Organization Address [facility] de Phone Number [facility] Department [place] [address] * Critical Care (03/06/2023 7:17 PM CDT) Narrative Deanna Thompson MD PhD - 03/06/2023 7:17 PM CDT Matheus Frias PA ? 03/07/2023 ??5:21 AM Critical Care Performed by: Matheus rFias PA Authorized by: Matheus Frias PA ?? CRITICAL CARE: ??Team: ??OTHER ??Shift: ??PM ??Level of Billing: ??Critical Care ??My time spent with this patient was 95 minutes: Critical Provider Statement: I have seen and examined the patient on this day of service. I have reviewed and confirmed the history, physical exam, laboratory and radiologic data as documented in the signed ICU note. I have reviewed and discussed my treatment plan with the ICU team and other medical/corporate consultant staff, making frequent assessments and decisions regarding this patient's complex medical care. Critical Care time was exclusive of time spent performing separately billed procedures, treating other patients, and teaching. This time was in addition to and separate from critical care provided by other practitioners in my group on this day of service. Critical Care was necessary to treat or prevent imminent or life-threatening deterioration of the following conditions: ? I spent time reviewing and interpreting data from bedside monitors, laboratory results, and imaging, I spent time discussing the management of this critically ill patient with consultants and the medical staff and I spent time documenting in the medical record Matheus JARAMILLO IN CLINIC/BEDSIDE ORDERABLE S Final Result * (ABNORMAL) POCT glucose (03/06/2023 6:52 PM CDT) [facility] Glucose, POC 282(H) 70 - 199 mg/dL [facility] Blood 03/06/2023 6:52 PM CDT 03/06/2023 6:52 PM CDT Carmen Monte MD LAB POCT ORDERABLES - DEVICE Final Result Performing Organization Address City/[facility]/ZIP Co de Phone Number [facility] Department [place] [address] * (ABNORMAL) POCT glucose (03/06/2023 6:17 PM CDT) [facility] Glucose, POC 269(H) 70 - 199 mg/dL [facility] Blood 03/06/2023 6:17 PM CDT 03/06/2023 6:17 PM CDT Carmen Monte MD LAB POCT ORDERABLES - DEVICE Final Result [facility] [place] [address] * (ABNORMAL) POCT glucose (03/06/2023 5:40 PM CDT) Glucose, POC 277(H) 70 - 199 mg/dL [facility] Blood 03/06/2023 5:40 PM CDT 03/06/2023 5:40 PM CDT Carmen Monte MD LAB POCT ORDERABLES - DEVICE Final Result Performing Organization Address City/[facility]/ZIP Co de Phone Number [facility] [place] [address] * (ABNORMAL) Aerobic and anaerobic culture and gram stain Abscess Scrotum (03/06/2023 5:26 PM CDT) Direct Specimen Exam Stain: Moderate polymorphonuclear leukocytes seen. Moderate Gram Positive Cocci Moderate Gram Positive Bacilli Moderate Gram Negative Bacilli [facility] Report Final Report: Moderate Streptococcus anginosus For susceptibility results, refer to accession number [id number] on the scrotum tissue culture from 03/06/2023 Few Mixed aerobic and anaerobic microorganisms (.) [facility] Organism STREPTOCOCCUS ANGINOSUS [facility] Organism MIXED AEROBIC AND ANAEROBIC MICROORGANISMS [facility] Abscess (Scrotum) 03/06/2023 5:26 PM CDT 03/06/2023 7:46 PM CDT Narrative [facility] - 03/16/2023 7:53 AM CDT Perineal Abscess #2 for Culture Specimen received on an ESwab. Testing performed by [facility] ([phone]) Specimens submitted from normally sterile body sites will have all bacterial morphotypes identified. Specimens that contain grossly mixed jero and/or are from body sites that are not normally sterile will be examined for Staphylococcus aureus, Pseudomonas aeruginosa, beta-hemolytic strep, vancomycin-resistant Enterococcus, Bacteroides, Parabacteroides, Clostridium perfringens and fungus. If any of these are isolated, the organism will be reported. Current interpretive data was last revised on 2019. us Pilar Johnson MD LAB MICROBIOLOGY - GENER AL ORDERABLES Final Result Performing Organization Address [facility]/ZIP Co de Phone Number [facility] [place] [address] * (ABNORMAL) Tissue aerobic and anaerobic culture and gram stain Tissue Scrotum (03/06/2023 5:18 PM CDT) Direct Specimen Exam Stain: Rare polymorphonuclear leukocytes seen. Abundant Gram Positive Cocci Abundant Gram Negative Bacilli Moderate Gram Positive Bacilli [facility] Report Final Report: Moderate Streptococcus anginosus Few Mixed aerobic and anaerobic microorganisms (.) [facility] Organism STREPTOCOCCUS ANGINOSUS [facility] Organism MIXED AEROBIC AND ANAEROBIC MICROORGANISMS [facility] Tissue (Scrotum) 03/06/2023 5:18 PM CDT 03/06/2023 7:40 PM CDT Narrative [facility] - 03/16/2023 7:52 AM CDT Perineal Tissue for Culture Testing performed by [facility] ([phone]) Specimens submitted from normally sterile body sites will have all bacterial morphotypes identified. Specimens that contain grossly mixed jero and/or are from body sites that are not normally sterile will be examined for Staphylococcus aureus, Pseudomonas aeruginosa, beta-hemolytic strep, vancomycin-resistant Enterococcus, Bacteroides, Parabacteroides, Clostridium perfringens and fungus. If any of these are isolated, the organism will be reported. Current interpretive data was last revised on 2019. Organism Antibiotic Method Susceptibility Streptococcus anginosus Penicillin (JEFF) (JEFF) INTERPR ETATION Susceptible Streptococcus anginosus Ceftriaxone (JEFF) (JEFF) INTERP RETATION Susceptible Streptococcus anginosus Clindamycin (JEFF) INTERPRETAT ION Susceptible Streptococcus anginosus Erythromycin (JEFF) INTERPRETAT ION Susceptible Streptococcus anginosus Levofloxacin (JEFF) INTERPRETAT ION Susceptible Streptococcus anginosus Vancomycin (JEFF) INTERPRETAT ION Susceptible Carmen Monte MD LAB MICROBIOLOGY - G ENERAL ORDERABLES Final Result [facility]ENT[facility] [place] [address] * (ABNORMAL) Aerobic and anaerobic culture and gram stain Abscess Scrotum (03/06/2023 5:17 PM CDT) Direct Specimen Exam Stain: Abundant polymorphonuclear leukocytes seen. Abundant Gram Positive Cocci Abundant Gram Negative Bacilli Moderate Gram Positive Bacilli [facility] Report Final Report: Abundant Streptococcus anginosus For susceptibility results, refer to accession number [id number] on the scrotum tissue culture from 03/06/2023 Few Mixed aerobic and anaerobic microorganisms (.) [facility] Organism STREPTOCOCCUS ANGINOSUS [facility] Organism MIXED AEROBIC AND ANAEROBIC MICROORGANISMS [facility] Abscess (Scrotum) 03/06/2023 5:17 PM CDT 03/06/2023 7:44 PM CDT Narrative [facility] - 03/16/2023 7:52 AM CDT Perineal Abscess Specimen received in a sterile container. Testing performed by [facility] ([phone]) Specimens submitted from normally sterile body sites will have all bacterial morphotypes identified. Specimens that contain grossly mixed jero and/or are from body sites that are not normally sterile will be examined for Staphylococcus aureus, Pseudomonas aeruginosa, beta-hemolytic strep, vancomycin-resistant Enterococcus, Bacteroides, Parabacteroides, Clostridium perfringens and fungus. If any of these are isolated, the organism will be reported. Current interpretive data was last revised on 2019. Pilar Johnson MD LAB MICROBIOLOGY - GENER AL ORDERABLES Final Result Performing Organization Address City/[facility]/ZIP Co de Phone Number [facility] [place] [address] * (ABNORMAL) POCT glucose (03/06/2023 4:08 PM CDT) Glucose, POC 298(H) 70 - 199 mg/dL [facility] Blood 03/06/2023 4:08 PM CDT 03/06/2023 4:08 PM CDT Carmen Monte MD LAB POCT ORDERABLES - DEVICE Final Result Performing Organization Address [facility]/State/ZIP Co de Phone Number [facility] [place] [address] * US Arterial Duplex Lower Extremity Bilateral (03/06/2023 3:21 PM CDT) Anatomical Region Laterality Modality Vascular Bilateral Ultrasound 03/06/2023 1:52 PM CDT Narrative 03/07/2023 12:23 PM CDT [facility] - Department of Vascular Surgery, Vascular Laboratory [address] [place] [id number] [place] Lower Extremity Arterial Duplex Report Patient Name: RENE HYATT M : 1980 Study Date: 03/06/2023 1:52:30 PM Gender: M Tech: Location: 2183 Ref.Provider: ANIL BIRMINGHAM Quality: Adequate Order Provider: ANIL BIRMINGHAM Procedures: Arterial Report: Bilateral Lower Extremity Arterial Duplex Exam. Indications: Left foot metatarsal base ulcer, and left big toe ulcer, did not know he has diabetes. Measurements: Right Lower ? Left Lower ? Measurement ? Value ?Units ?Measurement ? Value ?Units ? Rt BULB GRADER Dst PSV ?93 ? cm/s ? Lt BULB GRADER Dst PSV ?154 ?cm/s ? Rt Profunda Prx PSV ? 51 ? cm/s ? Lt Profunda Prx PSV ? 86 ? cm/s ? Rt Superficial Femoral Prx PSV ?106 ?cm/s ? Lt Superficial Femoral Prx PSV ?145 ?cm/s ? Rt Superficial Femoral Mid PSV ?90 ? cm/s ? Lt Superficial Femoral Mid PSV ?130 ?cm/s ? Rt Superficial Femoral Dst PSV ?73 ? cm/s ? Lt Superficial Femoral Dst PSV ?86 ? cm/s ? Rt Popliteal Artery ? 90 ? cm/s ? Lt Popliteal Artery ? 115 ?cm/s ? Rt Post Tibial Prx PSV ?86 ? cm/s ? Lt Post Tibial Prx PSV ?92 ? cm/s ? Rt Post Tibial Mid PSV ?96 ? cm/s ? Lt Post Tibial Mid PSV ?97 ? cm/s ? Rt Post Tibial Dst PSV ?83 ? cm/s ? Lt Post Tibial Dst PSV ?90 ? cm/s ? Rt Ant Tibial Prx PSV ? 77 ? cm/s ? Lt Ant Tibial Prx PSV ? 113 ?cm/s ? Rt Ant Tibial Mid PSV ? 73 ? cm/s ? Lt Ant Tibial Mid PSV ? 133 ?cm/s ? Rt Ant Tibial Dst PSV ? 75 ? cm/s ? Lt Ant Tibial Dst PSV ? 122 ?cm/s ? Rt Peroneal Prx PSV ? 67 ? cm/s ? Lt Peroneal Prx PSV ? 76 ? cm/s ? Rt Peroneal Mid PSV ? 54 ? cm/s ? Lt Peroneal Mid PSV ? 62 ? cm/s ? Rt Peroneal Dst PSV ? 52 ? cm/s ? Lt Peroneal Dst PSV ? 77 ? cm/s ? Measurement ? Value ?Units ?Measurement ? Value ?Units ? Right Lower ? Left Lower ? - Findings: Performing Director Of Database Marketing: Anca Alexis RVT ([place]). Right Common Femoral: The right common femoral waveform is multiphasic. Right Profunda: The right profunda waveform is multiphasic. Right Proximal Superficial Femoral Artery: The right proximal femoral artery waveform is multiphasic. Right Mid Superficial Femoral Artery: The right mid femoral artery waveform is multiphasic. Right Distal Superficial Femoral Artery: The right distal femoral artery waveform is multiphasic. Right Popliteal: The right popliteal waveform is multiphasic. Right Posterior Tibial: The right posterior tibial waveform is multiphasic. Right Anterior Tibial: The right anterior tibial waveform is multiphasic. Right Peroneal: The right peroneal artery waveform is multiphasic. Left Common Femoral: The left common femoral waveform is multiphasic. Left Profunda: The left profunda waveform is multiphasic. Left Proximal Superficial Femoral Artery: The left proximal femoral artery waveform is multiphasic. Left Mid Superficial Femoral Artery: The left mid femoral artery waveform is multiphasic. Left Distal Superficial Femoral Artery: The left distal femoral artery waveform is multiphasic. Left Popliteal: The left popliteal waveform is multiphasic. Left Posterior Tibial: The left posterior tibial waveform is multiphasic. Left Anterior Tibial: The left anterior tibial waveform is multiphasic. Left Peroneal: The left peroneal artery waveform is multiphasic. Conclusions: 1. Duplex imaging of the bilateral lower extremity [place] arteries reveals patent vessels with no flow limiting lesions identified. Flow velocities as measured above. See Ankle Brachial Index report. 2. See Ankle/ Brachial Index report. History: Not identified. Previous Studies: No previous studies for comparison. Disclaimer: The study images and the final report will be retained in the patient chart by the Vascular Laboratory for the legally required time period. This chart constitutes the legal record of any testing performed. Attestation: I have reviewed and interpreted the pertinent images and measurements of this study. I attest to the conclusions in the final report that is provided above. Electronically Signed By: Alberto Ching MD [facility] 2023-03-07 12:23:36 CDT CC: CC: Procedure Note Alberto Ching MD - 03/07/2023 [facility] - Department of Vascular Surgery,Vascular Laboratory [address] [place] [id number] [place] Lower Extremity Arterial Duplex Report Patient Name: RENE HYATT MPatient ID: [id number] : [id number] Date: 03/06/2023 1:52:30 PM Gender: MAccession #: [id number] Tech: TFLocation: 2183 Ref.Provider: ANIL BIRMINGHAMQuality: Adequate Order Provider: ANIL BIRMINGHAM Procedures: Arterial Report: Bilateral Lower Extremity Arterial Duplex Exam. Indications: Left foot metatarsal base ulcer, and left big toe ulcer, did not know hehas diabetes. Measurements: Right Lower Left Lower Measurement Value Units MeasurementValue Units Rt BULB GRADER Dst PSV 93 cm/s Lt BULB GRADER Dst [id number] cm/s Rt Profunda Prx PSV 51 cm/s Lt Profunda Prx PSV86 cm/s Rt Superficial Femoral Prx PSV 106 cm/s Lt Superficial FemoralPrx PSV 145 cm/s Rt Superficial Femoral Mid PSV 90 cm/s Lt Superficial FemoralMid PSV 130 cm/s Rt Superficial Femoral Dst PSV 73 cm/s Lt Superficial FemoralDst PSV 86 cm/s Rt Popliteal Artery 90 cm/s Lt Popliteal [id number] cm/s Rt Post Tibial Prx PSV 86 cm/s Lt Post Tibial Prx PSV92 cm/s Rt Post Tibial Mid PSV 96 cm/s Lt Post Tibial Mid PSV97 cm/s Rt Post Tibial Dst PSV 83 cm/s Lt Post Tibial Dst PSV90 cm/s Rt Ant Tibial Prx PSV 77 cm/s Lt Ant Tibial Prx AVS118 cm/s Rt Ant Tibial Mid PSV 73 cm/s Lt Ant Tibial Mid [id number] cm/s Rt Ant Tibial Dst PSV 75 cm/s Lt Ant Tibial Dst [id number] cm/s Rt Peroneal Prx PSV 67 cm/s Lt Peroneal Prx PSV76 cm/s Rt Peroneal Mid PSV 54 cm/s Lt Peroneal Mid PSV62 cm/s Rt Peroneal Dst PSV 52 cm/s Lt Peroneal Dst PSV77 cm/s Measurement Value Units MeasurementValue Units Right Lower Left Lower - Findings: Performing Director Of Database Marketing: Anca Alexis RVT ([place]). Right Common Femoral: The right common femoral waveform is multiphasic. Right Profunda: The right profunda waveform is multiphasic. Right Proximal Superficial Femoral Artery: The right proximal femoral artery waveform is multiphasic. Right Mid Superficial Femoral Artery: The right mid femoral artery waveform is multiphasic. Right Distal Superficial Femoral Artery: The right distal femoral artery waveform is multiphasic. Right Popliteal: The right popliteal waveform is multiphasic. Right Posterior Tibial: The right posterior tibial waveform is multiphasic. Right Anterior Tibial: The right anterior tibial waveform is multiphasic. Right Peroneal: The right peroneal artery waveform is multiphasic. Left Common Femoral: The left common femoral waveform is multiphasic. Left Profunda: The left profunda waveform is multiphasic. Left Proximal Superficial Femoral Artery: The left proximal femoral artery waveform is multiphasic. Left Mid Superficial Femoral Artery: The left mid femoral artery waveform is multiphasic. Left Distal Superficial Femoral Artery: The left distal femoral artery waveform is multiphasic. Left Popliteal: The left popliteal waveform is multiphasic. Left Posterior Tibial: The left posterior tibial waveform is multiphasic. Left Anterior Tibial: The left anterior tibial waveform is multiphasic. Left Peroneal: The left peroneal artery waveform is multiphasic. Conclusions: 1. Duplex imaging of the bilateral lower extremity [place] arteries revealspatent vessels with no flow limiting lesions identified. Flow velocities as measuredabove. See Ankle Brachial Index report. 2. See Ankle/ Brachial Index report. History: Not identified. Previous Studies: No previous studies for comparison. Disclaimer: The study images and the final report will be retained in the patientchart by the Vascular Laboratory for the legally required time period. This chartconstitutes the legal record of any testing performed. Attestation: I have reviewed and interpreted the pertinent images and measurements ofthis study. I attest to the conclusions in the final report that is provided above. Electronically Signed By: Alberto Ching MD [facility] 2023-03-07 12:23:36 CDT CC: CC: us Anil Birmingham MD [facility] PROCEDURES Final Resu lt * US Arterial Doppler Lower Extremity Bilateral (03/06/2023 3:14 PM CDT) Anatomical Region Laterality Modality Vascular Bilateral Ultrasound 03/06/2023 1:53 PM CDT Narrative 03/07/2023 12:41 PM CDT [facility] - Department of Vascular Surgery, Vascular Laboratory [address] [place] [address] Lower Extremity Arterial Doppler Report Patient Name: RENE HYATT M : 1980 Study Date: 03/06/2023 1:53:00 PM Gender: M Tech: Anca Alexis Rvt Location: 2183 Ref.Provider: ANIL BIRMINGHAM Quality: Adequate Order Provider: ANIL BIRMINGHAM Procedures: Arterial Report: Bilateral lower extremity arterial Doppler exam at rest. Indications: Left foot metatarsal base ulcer, and left big toe ulcer, did not know he has diabetes, bilateral leg swelling. Measurements: Right - ?Left - ? Measurement ?Value ?Units ?Measurement ?Value ?Units ? Rt Brachial Pressure ? 100 ?mmHg ? Lt Brachial Pressure ? 110 ?mmHg ? Rt AUTOMOBILE LIGHTS ASSEMBLER Pressure ?162 ?mmHg ? Lt AUTOMOBILE LIGHTS ASSEMBLER Pressure ?158 ?mmHg ? Rt DPA Pressure ?159 ?mmHg ? Lt DPA Pressure ?159 ?mmHg ? Rt 1st Digit Pressure ?>254 ? mmHg ? Lt 1st Digit Pressure ?>254 ? mmHg ? Rt PT MOSES Resting ?NC ?Lt PT MOSES Resting ?NC ? Rt AT MOSES Resting ?NC ?Lt AT MOSES Resting ?NC ? Rt Digit/Arm Index ? NC ?Lt Digit/Arm Index ? NC ? Measurement ?Value ?Units ?Measurement ?Value ?Units ? Right - ?Left - ? - Findings: Performing Director Of Database Marketing: Anca Alexis RVT ([place]). Bilateral All Levels : The bilateral common femoral, popliteal, posterior tibial and anterior tibial artery waveforms are multiphasic. Right Digits: Normal right digit non compressible pressure with normal waveform. Left Digits: Normal left digit non compressible pressure with normal waveform. Conclusions: 1. The ankle arteries are non-compressible bilaterally which is consistent with arterial calcification thus the Ankle/Brachial Indices are not obtainable. 2. Bilateral toe pressures were non compressible. History: Not identified. Previous Studies: No previous studies for comparison. Disclaimer: The study images and the final report will be retained in the patient chart by the Vascular Laboratory for the legally required time period. This chart constitutes the legal record of any testing performed. Attestation: I have reviewed and interpreted the pertinent images and measurements of this study. I attest to the conclusions in the final report that is provided above. Electronically Signed By: Alberto Ching MD [facility] 2023-03-07 12:41:16 CDT CC: CC: Procedure Note Alberto Ching MD - 03/07/2023 [facility] - Department of Vascular Surgery,Vascular Laboratory [address] [place] [address] Lower Extremity Arterial Doppler Report Patient Name: RENE HYATT MPatient ID: [id number] : [id number] Date: 03/06/2023 1:53:00 PM Gender: MAccession #: [id number] Tech: Anca Alexis RvtLocation: 2183 Ref.Provider: Carson BIRMINGHAMality: Adequate Order Provider: ANIL BIRMINGHAM Procedures: Arterial Report: Bilateral lower extremity arterial Doppler exam at rest. Indications: Left foot metatarsal base ulcer, and left big toe ulcer, did not know hehas diabetes, bilateral leg swelling. Measurements: Right - Left - Measurement Value Units Measurement ValueUnits Rt Brachial Pressure 100 mmHg Lt Brachial Pressure 110mmHg Rt AUTOMOBILE LIGHTS ASSEMBLER Pressure 162 mmHg Lt AUTOMOBILE LIGHTS ASSEMBLER Pressure 158mmHg Rt DPA Pressure 159 mmHg Lt DPA Pressure 159mmHg Rt 1st Digit Pressure >254 mmHg Lt 1st Digit Pressure >254mmHg Rt PT MOSES Resting NC Lt PT MOSES Resting NC Rt AT MOSES Resting NC Lt AT MOSES Resting NC Rt Digit/Arm Index NC Lt Digit/Arm Index NC Measurement Value Units Measurement ValueUnits Right - Left - - Findings: Performing Director Of Database Marketing: Anca Alexis RVT ([place]). Bilateral All Levels : The bilateral common femoral, popliteal, posterior tibial and anteriortibial artery waveforms are multiphasic. Right Digits: Normal right digit non compressible pressure with normal waveform. Left Digits: Normal left digit non compressible pressure with normal waveform. Conclusions: 1. The ankle arteries are non-compressible bilaterally which is consistentwith arterial calcification thus the Ankle/Brachial Indices are not obtainable. 2. Bilateral toe pressures were non compressible. History: Not identified. Previous Studies: No previous studies for comparison. Disclaimer: The study images and the final report will be retained in the patientchart by the Vascular Laboratory for the legally required time period. This chartconstitutes the legal record of any testing performed. Attestation: I have reviewed and interpreted the pertinent images and measurements ofthis study. I attest to the conclusions in the final report that is provided above. Electronically Signed By: Alberto Ching MD [facility] 2023-03-07 12:41:16 CDT CC: CC: us Anil Birmingham MD [facility] PROCEDURES Final Resu lt * Check Sample (03/06/2023 12:17 PM CDT) ABO Rh B Negative [facility] HCLL OTHER 03/06/2023 12:1 7 PM CDT 03/06/2023 12:43 PM CDT Carolee Daly MD LAB BLOOD ORDERABLES Shilpi l Result [facility] [place] [address] * MT CRITICAL CARE ILL/INJURED PATIENT INIT 30-74 MIN (03/06/2023 11:49 AM CDT) Narrative Carolee Daly MD - 03/06/2023 11:49 AM CDT Carolee Daly MD ? 03/06/2023 11:50 AM Critical Care Performed by: Carolee Daly MD Authorized by: Carolee Daly MD ?? Critical care provider statement: As reflected in the history, physical exam, orders, notes, and/or MDM, I was personally present while the patient was critically ill and provided critical care services for 40 minutes, excluding time involved in separately billable procedures. ??Critical care was necessary to treat or prevent imminent or life-threatening deterioration of the following condition(s): ?? sepsis, skin/soft tissue infection and severe genitourinary infection ??Critical care was time spent by me providing the following: ? continuous telemetry, continuous pulse oximetry, interpretation of bedside monitors, imaging, and arterial/venous lab draws, serial bedside patient exams and serial laboratory checks ?? review prior cultures/records, obtain appropriate cultures and empiric broad coverage antibiotics ?? I provided emergent necessary critical care medicine services to this patient. I ordered and reviewed test results and/or imaging studies. I spent time discussing the management of this critically ill patient with consultants and the medical staff. I spent time discussing the management and therapeutic options for this critically ill patient with the patient themselves or with the appropriate designated surrogate decision-maker. I spent time documenting in the medical record. us Carolee Daly MD IN CLINIC/BEDSIDE ORDERAB LES Final Result * Sepsis Lactate w/ Reflex (03/06/2023 11:02 AM CDT) Pathologist [facility] Sepsis Lactate 1.8 0.7 - 2.0 mmol/L [facility] Blood 03/06/2023 11:0 2 AM CDT 03/06/2023 11:13 AM CDT us Anil Birmingham MD LAB BLOOD ORDERABLES Final R esult [facility] [place] [address] * (ABNORMAL) Protime-INR (03/06/2023 11:02 AM CDT) Pathologist [facility] PT 18.3(H) 10.3 - 13.7 sec [facility] INR 1.61(H) 0.90 - 1.20 [facility] Comment: Interpretive data Oral anticoagulant therapeutic ranges: Venous thromboembolism prophylaxis or treatment: 2.0-3.0 CARDIOLOGY Standard range: 2.0-3.0 High-intensity range: 2.5-3.5 Refer to indication-specific guidelines for appropriate target ranges for prosthetic heart valve replacement. Current interpretive data was last revised on 2019. Blood 03/06/2023 11:0 2 AM CDT 03/06/2023 11:20 AM CDT Anil Birmingham MD LAB BLOOD ORDERABLES Final R esult Performing Organization Address [facility] Co [place] [address] * Type and screen (03/06/2023 11:02 AM CDT) Keenan, indirect Negative [facility] ABO Rh B Negative [facility] Blood 03/06/2023 11:0 2 AM CDT 03/06/2023 11:17 AM CDT Narrative [facility] - 03/06/2023 12:18 PM CDT Has the patient had Daratumumab or Isatuximab in the past 6 months?->Unknown Anil Birmingham MD LAB BLOOD BANK TEST ORDERABL ES Final Result Performing Organization Address [facility] de Phone Number [facility] [place] [address] documented in this encounter Visit Diagnoses Diagnosis Scrotal abscess- Primary 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 Scrotal abscess 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 1 diabetes mellitus with ketoacidosis without coma ([facility]) Yamila's gangrene T1DM (type 1 diabetes mellitus) ([facility]) Type I (juvenile type) diabetes mellitus without mention of complication, not stated as uncontrolled Vitamin D deficiency Diabetic foot ulcer (CMS/HCC) ([facility]) Type II or unspecified type diabetes mellitus with other specified manifestations, not stated as uncontrolled Anemia Unspecified anemia Class 3 obesity Hypertension Unspecified essential hypertension Adjustment disorder Unspecified adjustment reaction documented in this encounter Admitting Diagnoses Diagnosis Scrotal abscess 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 Perineal abscess documented in this encounter Administered Medications Inactive Administered Medications - up to 3 most recent administrations Medication Order MAR Action Action Date Dose Rate Site acetaminophen (TYLENOL) tablet 1,000 mg 1,000 mg, oral, Every 6 hours scheduled, First dose on Thu03/06/23 at 1945 Given 03/25/2023 12:40 PM CDT 1,000 mg Given 03/25/2023 5:21 AM CDT 1,000 mg Given 03/25/2023 12:03 AM CDT 1,000 mg ampicillin-sulbactam (UNASYN) 3 g/110 mL in sodium chloride 0.9% (premix) 3 g 3 g, intravenous, Administer over 30 Minutes, Every 6 hours scheduled, First dose on Thu03/09/23 at 1345, Indications: Skin/Soft Tissue Infection, woundIndications:Skin/Soft Tissue Infection,wound New Bag 03/25/2023 10:18 AM CDT 3 g New Bag 03/25/2023 4:42 AM CDT 3 g New Bag 03/24/2023 9:39 PM CDT 3 g aspirin enteric coated tablet 325 mg 325 mg, oral, Once, On Thu03/16/23 at 1900, For 1 dose, Do not crush, chew, cut, dissolve, open or otherwise manipulate tablet/capsule., Indications: HeadacheIndications:Headache Given 03/16/2023 9:00 PM CDT 325 mg atorvastatin (LIPITOR) tablet 20 mg 20 mg, oral, Nightly, First dose on Thu03/10/23 at 2215 Given 03/24/2023 9:38 PM CDT 20 mg Given 03/23/2023 9:37 PM CDT 20 mg Given 03/22/2023 8:19 PM CDT 20 mg calcium carbonate (OS-KRISTY) tablet 1,250 mg 1,250 mg (500 mg of elemental calcium), oral, 2 times daily, First dose on Thu03/16/23 at 1330 Given 03/25/2023 8:25 AM CDT 1,250 mg Given 03/24/2023 9:38 PM CDT 1,250 mg Given 03/24/2023 9:52 AM CDT 1,250 mg calcium carbonate (TUMS) chewable tablet 1,000 mg 1,000 mg (400 mg of elemental calcium), oral, Daily, First dose on Thu03/09/23 at 0900 Given 03/16/2023 9:22 AM CDT 1,000 mg Given 03/15/2023 7:43 AM CDT 1,000 mg Given 03/14/2023 9:10 AM CDT 1,000 mg calcium carbonate (TUMS) chewable tablet 500 mg 500 mg (200 mg of elemental calcium), oral, Once, On Thu03/13/23 at 2100, For 1 dose Given 03/13/2023 8:18 PM CDT 500 mg calcium gluconate 3 g in sodium chloride 0.9% 100 mL IVPB 3 g, intravenous, at 130 mL/hr, Administer over 60 Minutes, Once, On Thu03/06/23 at 2215, For 1 dose, Indications: hypocalcemiaIndications:hypocalc emia New Bag 03/06/2023 10:53 PM CDT 3 g 130 mL/hr calcium gluconate 3 g in sodium chloride 0.9% 100 mL IVPB 3 g, intravenous, at 130 mL/hr, Administer over 60 Minutes, Once, On Thu03/07/23 at 2145, For 1 dose, Indications: hypocalcemiaIndications:hypocalc emia New Bag 03/07/2023 9:32 PM CDT 3 g 130 mL/hr calcium gluconate 3 g in sodium chloride 0.9% 100 mL IVPB 3 g, intravenous, at 130 mL/hr, Administer over 60 Minutes, Once, On Thu03/08/23 at 2330, For 1 dose, Indications: hypocalcemiaIndications:hypocalc emia New Bag 03/09/2023 12:08 AM CDT 3 g 130 mL/hr cefepime (MAXIPIME) 2,000 mg/20 mL in sterile water (premix) 2,000 mg 2,000 mg, intravenous, at 240 mL/hr, Administer over 5 Minutes, Every 8 hours scheduled, First dose on Thu03/06/23 at 1330, Indications: NSTIIndications:NSTI New 03/06/2023 12:50 PM CDT 2,000 mg 240 mL/hr clindamycin (CLEOCIN) 900 mg/50 mL in dextrose 5% (premix) 900 mg 900 mg, intravenous, at 100 mL/hr, Administer over 30 Minutes, Every 8 hours scheduled, First dose on Thu03/06/23 at 1330, Indications: NSTIIndications:NSTI New 03/06/2023 12:50 PM CDT 900 mg 100 mL/hr clindamycin (CLEOCIN) 900 mg/50 mL in dextrose 5% (premix) 900 mg 900 mg, intravenous, at 100 mL/hr, Administer over 30 Minutes, Every 8 hours scheduled, First dose (after last modification) on Thu03/06/23 at 2200, For 24 hours, Indications: NSTIIndications:NSTI New Bag 03/07/2023 1:11 PM CDT 900 mg 100 mL/hr New Bag 03/07/2023 5:01 AM CDT 900 mg 100 mL/hr New Bag 03/06/2023 9:44 PM CDT 900 mg 100 mL/hr dextrose (D10W) 10% bolus 250 mL 250 mL, intravenous, at 1,000 mL/hr, Administer over 15 Minutes, Every 15 min PRN, blood glucose less than 70 mg/dL and UNABLE to swallow/take PO glucose/juice., Starting on Thu03/09/23 at 1200, After treatment for hypoglycemia, recheck BG followed by treatment every 15 minutes until the BG is greater than 100 mg/dL. Then check BG 1 hour post treatment. If BG is less than 100 mg/dL, repeat Q15 minute BG checks and treatment. Call MD for each episode of hypoglycemia., Indications: hypoglycemic disorderIndications:hypoglyc emic disorder dextrose 5% infusion 100 mL/hr, intravenous, Continuous, Starting on Thu03/07/23 at 1145, For 1 day, Start when blood glucose less than 250 mg/dL and decrease rate of previous IV fluid infusion order. Notify MD when blood glucose less than 250 mg/dL and adjusting IV fluids. Rate/Dose Verify 03/08/2023 10:00 AM CDT 100 mL/hr 100 mL/hr Rate/Dose Verify 03/08/2023 9:00 AM CDT 100 mL/hr 100 mL/ hr Rate/Dose Verify 03/08/2023 8:00 AM CDT 100 mL/hr 100 mL/ hr dextrose gel in packet 15 g 15 g, oral, Every 15 min PRN, low blood sugar, blood glucose less than 70 mg/dL, Starting on Thu03/09/23 at 1200, If patient is alert and able to eat/drink, give 15 gm glucose or one juice (4 fluid ounces) NOT ORANGE JUICE. After treatment for hypoglycemia, recheck BG followed by treatment every 15 minutes until the BG is greater than 100 mg/dL. Then check BG 1 hour post-treatment. If BG is less than 100 mg/dL, repeat Q15 minute BG checks and treatment. Call MD for each episode of hypoglycemia., Indications: hypoglycemic disorderIndications:hypoglycemic disorder docusate (COLACE) 10 mg/mL oral liquid 100 mg 100 mg, feeding tube, 2 times daily, First dose on Thu03/06/23 at 2100, If able to receive meds per tube. Hold for diarrhea., Indications: constipation, Stool SoftenerIndications:constipation,Stool Softener Given 03/06/2023 9:17 PM CDT 100 mg docusate sodium (COLACE) capsule 100 mg 100 mg, oral, 2 times daily, First dose on Thu03/06/23 at 2100, If able to swallow capsules. Hold for diarrhea., Indications: constipation, Stool SoftenerIndications:constipation,Stool Softener Given 03/09/2023 8:40 AM CDT 100 mg Given 03/08/2023 8:49 PM CDT 100 mg Given 03/08/2023 8:15 AM CDT 100 mg enoxaparin (LOVENOX) syringe 40 mg 40 mg, subcutaneous, Daily (for enoxaparin), First dose on Thu03/06/23 at 2100, Indications: Deep Vein Thrombosis PreventionIndications:Deep Vein Thrombosis Prevention Given 03/08/2023 8:49 PM CDT 40 mg Left Lower Abdomen Given 03/07/2023 7:49 PM CDT 40 mg Le ft Lower Abdomen Given 03/06/2023 8:21 PM CDT 40 mg Le ft Lower Abdomen enoxaparin (LOVENOX) syringe 40 mg 40 mg, subcutaneous, Every 12 hours scheduled, First dose (after last modification) on 03/09/23 at 0915, Indications: Deep Vein Thrombosis PreventionIndications:Deep Vein Thrombosis Prevention Given 03/25/2023 8:25 AM CDT 40 mg Right Lower Abdomen Given 03/24/2023 9:38 PM CDT 40 mg Le ft Upper Abdomen Given 03/24/2023 9:52 AM CDT 40 mg Ri ght Lower Abdomen ergocalciferol (VITAMIN D) capsule 50,000 Units 50,000 Units, oral, Weekly, First dose (after last modification) on 03/08/23 at 2315, For 6 doses, Do not crush, break, or open. Given 03/09/2023 12:08 AM CDT 50,000 Units ergocalciferol (VITAMIN D) capsule 50,000 Units 50,000 Units, oral, 2 times weekly (Once per day on Thu), First dose (after last modification) on Thu03/16/23 at 0900, Do not crush, break, or open. Given 03/16/2023 9:22 AM CDT 50,000 Units ergocalciferol (VITAMIN D) capsule 50,000 Units 50,000 Units, oral, 2 times weekly (Once per day on Thu), First dose (after last modification) on Thu03/16/23 at 1345, For 60 days, Do not crush, break, or open. Given 03/23/2023 9:18 AM CDT 50,000 Units Given 03/19/2023 8:36 AM CDT 50,000 Units glucagon injection 1 mg 1 mg, intramuscular, Every 30 min PRN, low blood sugar, blood glucose less than 70 mg/dL AND no IV access AND unable to take PO glucose/juice., Starting on Thu03/09/23 at 1200, After Glucagon is administered, position patient on side if possible to avoid aspiration. Obtain IV access. Follow glucagon treatment with glucose treatment or IV dextrose. After treatment for hypoglycemia, recheck BG followed by treatment every 15 minutes until the BG is greater than 100 mg/dL. Then check BG 1 hour post treatment. If BG is less than 100 mg/dL, repeat Q15 minute BG checks and treatment. Call MD for each episode of hypoglycemia. Reconstitute 1 mg vial with 1 mL SWFI. Use immediately following reconstitution. HYDROmorphone (DILAUDID) injection 0.5 mg 0.5 mg, intravenous, Administer over 2 Minutes, Once, On Thu03/06/23 at 1045, For 1 dose Given 03/06/2023 11:02 AM CDT 0.5 mg HYDROmorphone (DILAUDID) injection 0.5 mg 0.5 mg, intravenous, Administer over 2 Minutes, Once, On Thu03/06/23 at 1140, For 1 dose Given 03/06/2023 12:12 PM CDT 0.5 mg hydrOXYzine (ATARAX) tablet 25 mg 25 mg, oral, Once, On Inna 03/12/23 at 2230, For 1 dose Given 03/12/2023 10:15 PM CDT 25 mg influenza quadrivalent [id number] (FLULAVAL,FLUARIX,FLUZONE) 60 mcg (15 mcg x 4)/0.5 mL vaccine (STANDARD age 6 months and up) 0.5 mL 0.5 mL, intramuscular, During hospitalization, immunization, Starting on Thu03/11/23 at 0943, For 1 dose Given 03/11/2023 10:04 AM CDT 0.5 mL Left Deltoid insulin glargine (LANTUS, SEMGLEE) 100 unit/mL injection 20 Units 20 Units, subcutaneous, Nightly, First dose on Thu03/09/23 at 2100, Do not hold if NPO. Do not mix with other insulins, Indications: Diabetes MellitusIndications:Diabetes Mellitus Given 03/24/2023 9:39 PM CDT 20 Units Right Upper Abdomen Given 03/23/2023 9:36 PM CDT 20 Units Le ft Lower Abdomen Given 03/22/2023 8:19 PM CDT 20 Units Le ft Lower Abdomen insulin lispro (HumaLOG, ADMELOG) 100 unit/mL injection 0-10 Units 0-10 Units, subcutaneous, Every 4 hours scheduled, First dose on Thu03/08/23 at 1600, Blood glucose mg/dL: 149 or less: No insulin 150-199: add 2 unit 200-249: add 4 units 250-299: add 6 units 300-349: add 8 units and notify physician for adjustment of insulin orders. 350-399: add 10 units and notify physician for adjustment of insulin orders. Over 400: Notify physician for adjustment of insulin orders. Do NOT hold for NPO Status, Indications: Diabetes MellitusIndications:Diabetes Mellitus Given 03/09/2023 11:33 AM CDT 2 Units Left Upper Arm Given 03/09/2023 7:39 AM CDT 2 Units Ri ght Upper Arm Given 03/09/2023 3:33 AM CDT 2 Units Le ft Lower Abdomen insulin lispro (HumaLOG, ADMELOG) 100 unit/mL injection 0-10 Units 0-10 Units, subcutaneous, 3 times daily with meals, First dose on Thu03/09/23 at 1245, Blood glucose mg/dL: 149 or less: No insulin 150-199: add 2 unit 200-249: add 4 units 250-299: add 6 units 300-349: add 8 units and notify physician for adjustment of insulin orders. 350-399: add 10 units and notify physician for adjustment of insulin orders. Over 400: Notify physician for adjustment of insulin orders. Do NOT hold for NPO Status, Indications: Diabetes MellitusIndications:Diabetes Mellitus Given 03/25/2023 12:19 PM CDT 4 Units Left Upper Arm Given 03/25/2023 8:26 AM CDT 2 Units Ri ght Upper Arm Given 03/24/2023 6:16 PM CDT 2 Units Ri ght Lower Abdomen insulin lispro (HumaLOG, ADMELOG) 100 unit/mL injection 0-5 Units 0-5 Units, subcutaneous, 3 times daily with meals, First dose on Thu03/08/23 at 1200, Blood glucose mg/dL: 149 or less: No insulin 150-199: add 1 unit 200-249: add 2 units 250-299: add 3 units 300-349: add 4 units and notify physician for adjustment of insulin orders. 350-399: add 5 units and notify physician for adjustment of insulin orders. Over 400: Notify physician for adjustment of insulin orders. Do NOT hold for NPO Status, Indications: Diabetes MellitusIndications:Diabetes Mellitus Given 03/08/2023 12:29 PM CDT 1 Units Right Upper Arm insulin lispro (HumaLOG, ADMELOG) 100 unit/mL injection 0-5 Units 0-5 Units, subcutaneous, Nightly, First dose on Thu03/09/23 at 2100, Blood glucose mg/dL: 149 or less: No insulin 150-199: add 1 unit 200-249: add 2 units 250-299: add 3 units 300-349: add 4 units and notify physician for adjustment of insulin orders. 350-399: add 5 units and notify physician for adjustment of insulin orders. Over 400: Notify physician for adjustment of insulin orders. Do NOT hold for NPO Status, Indications: Diabetes MellitusIndications:Diabetes Mellitus Given 03/24/2023 9:49 PM CDT 1 Units Left Upper Abdomen Given 03/23/2023 9:36 PM CDT 1 Units Le ft Lower Abdomen Given 03/21/2023 8:56 PM CDT 1 Units Le ft Lower Abdomen insulin lispro (HumaLOG, ADMELOG) 100 unit/mL injection 10 Units 10 Units, subcutaneous, 3 times daily with meals, First dose (after last modification) on Thu03/13/23 at 1815, If BG greater than or equal to 100 mg/dL, give dose with meals when tray arrives in the room. If BG less than 100 mg/dL or history of poor intake, give after meals. If patient eating less than 50% of meal, call MD for holding or reducing meal insulin dose. Hold prandial insulin if NPO, unable to eat, or if BG less than 70 mg/dL., Indications: Diabetes MellitusIndications:Diabetes Mellitus Given 03/15/2023 6:04 PM CDT 10 Units Right Upper Arm Given 03/15/2023 12:32 PM CDT 10 Units R ight Upper Arm Given 03/15/2023 8:56 AM CDT 10 Units Ri ght Upper Arm insulin lispro (HumaLOG, ADMELOG) 100 unit/mL injection 12 Units 12 Units, subcutaneous, 3 times daily with meals, First dose (after last modification) on Thu03/16/23 at 0830, If BG greater than or equal to 100 mg/dL, give dose with meals when tray arrives in the room. If BG less than 100 mg/dL or history of poor intake, give after meals. If patient eating less than 50% of meal, call MD for holding or reducing meal insulin dose. Hold prandial insulin if NPO, unable to eat, or if BG less than 70 mg/dL., Indications: Diabetes MellitusIndications:Diabetes Mellitus Given 03/25/2023 12:19 PM CDT 12 Units Left Upper Arm Given 03/25/2023 8:26 AM CDT 12 Units Ri ght Upper Arm Given 03/24/2023 6:15 PM CDT 12 Units Ri ght Lower Abdomen insulin lispro (HumaLOG, ADMELOG) 100 unit/mL injection 6 Units 6 Units, subcutaneous, 3 times daily with meals, First dose on Thu03/09/23 at 1200 Given 03/09/2023 11:33 AM CDT 6 Units Left Upper Arm insulin lispro (HumaLOG, ADMELOG) 100 unit/mL injection 6 Units 6 Units, subcutaneous, 3 times daily with meals, First dose on Thu03/09/23 at 1245, If BG greater than or equal to 100 mg/dL, give dose with meals when tray arrives in the room. If BG less than 100 mg/dL or history of poor intake, give after meals. If patient eating less than 50% of meal, call MD for holding or reducing meal insulin dose. Hold prandial insulin if NPO, unable to eat, or if BG less than 70 mg/dL., Indications: Diabetes MellitusIndications:Diabetes Mellitus Given 03/11/2023 6:04 PM CDT 6 Units Left Upper Arm Given 03/11/2023 1:10 PM CDT 6 Units Le ft Upper Arm Given 03/11/2023 10:06 AM CDT 6 Units L eft Lower Abdomen insulin lispro (HumaLOG, ADMELOG) 100 unit/mL injection 8 Units 8 Units, subcutaneous, 3 times daily with meals, First dose (after last modification) on Inna 03/12/23 at 0800, If BG greater than or equal to 100 mg/dL, give dose with meals when tray arrives in the room. If BG less than 100 mg/dL or history of poor intake, give after meals. If patient eating less than 50% of meal, call MD for holding or reducing meal insulin dose. Hold prandial insulin if NPO, unable to eat, or if BG less than 70 mg/dL., Indications: Diabetes MellitusIndications:Diabetes Mellitus Given 03/13/2023 2:20 PM CDT 8 Units Right Upper Arm Given 03/13/2023 9:18 AM CDT 8 Units Ri ght Upper Arm Given 03/12/2023 5:30 PM CDT 8 Units Le ft Upper Arm insulin NPH (HumuLIN N, NovoLIN N) 100 unit/mL injection 8 Units 8 Units, subcutaneous, Every 8 hours, First dose on 03/08/23 at 0930, Discontinue insulin drip 2 hours after administration of first dose. Do not hold if NPO., Indications: Diabetes MellitusIndications:Diabetes Mellitus Given 03/09/2023 8:40 AM CDT 8 Units Right Upper Arm Given 03/09/2023 12:14 AM CDT 8 Units L eft Lower Abdomen Given 03/08/2023 4:45 PM CDT 8 Units Ri ght Upper Arm insulin NPH (HumuLIN N, NovoLIN N) 100 unit/mL injection 8 Units 8 Units, subcutaneous, Every 8 hours, First dose (after last modification) on 03/09/23 at 1730, For 1 dose, Indications: Diabetes MellitusIndications:Di abetes Mellitus Given 03/09/2023 5:03 PM CDT 8 Units Left Upper Arm insulin regular bolus from bag 4-10 Units 4-10 Units, intravenous, As needed, high blood sugar, Starting on Thu03/06/23 at 1659, Intra-Op, INITIATE INFUSION: Blood Glucose (mg/dL) 181 - 220: Give 4 units IV bolus and start infusion 1 unit/hour 221 - 280: Give 4 units IV bolus and start infusion 2 units/hour 281 - 330: Give 6 units IV bolus and start infusion 2 units/hour 331 - 380: Give 8 units IV bolus and start infusion 3 units/hour 381 - 430: Give 10 units IV bolus and start infusion 3 units/hour Greater than 430: Call MD for orders Use the instructions above if the insulin infusion needs to be restarted., Indications: HyperglycemiaIndicatio ns:Hyperglycemia Bolus from Bag 03/06/2023 6:55 PM CDT 4 Units insulin regular bolus from bag 4-6 Units 4-6 Units, intravenous, Every 1 hour PRN, high blood sugar per infusion instructions, Starting on Thu03/06/23 at 1900, Administer additional IV bolus doses as directed in insulin infusion order., Indications: HyperglycemiaIndicatio ns:Hyperglycemia Bolus from Bag 03/06/2023 9:56 PM CDT 4 Units insulin regular in 0.9% sodium chloride (MYXREDLIN) 100 unit/100 mL (1 unit/mL) infusion (premix) 0-30 Units/hr (0-30 mL/hr), 1 units/mL, intravenous, Titrated, Starting on Thu03/06/23 at 1701, Until Thu03/06/23 at 1901, Intra-Op, Indications: Hyperglycemia, NON-WEIGHT BASED DOSING Blood Glucose (BG) - BG DECREASED OR SAME as last value: Less than 70 mg/dL - Stop insulin infusion *(see below for drip reinitiation instructions). Follow hypoglycemia orders. Notify covering MD. 70 - 100 mg/dL - Stop infusion *(see below for drip reinitiation instructions). Resume BG Q 1 hour. 101 - 160 mg/dL - If BG decreased by greater than or equal to 40 mg/dL, decrease infusion by 50% or stop infusion if less than or equal to 2 units/hour *(see below for drip reinitiation instructions). Resume BG Q 1 hour. If BG decreased less than 40 mg/dL, continue same rate. 161 - 200 mg/dL- If BG decreased by greater than or equal to 60 mg/dL, decrease infusion by 50% or stop infusion if less than or equal to 2 units/hour *(see below for drip reinitiation instructions). Resume BG Q 1 hour. If BG decreased less than 60 mg/dL, continue same rate. 201 - 250 mg/dl - If BG decreased by greater than or equal to 60 mg/dL continue same rate. If decreased by less than 60 mg/dL, increase by 1 unit/hr. 251 - 300 mg/dL - Increase by 2 units/hour. 301 - 349 mg/dL - Increase by 2 units/hour. 350 - 400 mg/dL - Increase by 3 units/hr. Greater than 400 mg/dL - Notify covering MD Blood Glucose (BG) - Blood glucose INCREASED since last value: 70 - 100 mg/dL - Continue to hold infusion 101 - 160 mg/dL - Maintain at present rate or if drip has been off, follow reinitiation instructions* 161 - 200 mg/dL- Increase by or restart at 1 unit/hour or if drip has been off, follow reinitiation instructions* 201 - 250 mg/dL- Give 4 units insulin IVP then increase infusion by 2 units/hour or if drip has been off, follow reinitiation instructions* 251 - 300 mg/dL - Give 4 units insulin IVP then increase infusion by 2 units/hour or if drip has been off, follow reinitiation instructions* 301 - 349 mg/dL - Give 6 units insulin IVP then increase infusion by 3 units/hour or if drip has been off, follow reinitiation instructions* 350 - 400 mg/dL - Give 6 units insulin IVP then increase infusion by 3 units/hour or if drip has been off, follow reinitiation instructions* Greater than 400 mg/dL - Notify covering MD. *Drip Reinitiation Instructions: Check BG Q 1 hour; when BG greater than 100 mg/dL, restart infusion at 50% of the most recent rate. If the most recent rate less than 2 units/hr, contact covering provider for reinitiation or transition plan. Patients with renal failure (CrCl less than 40 mL/min, urine output less than 30 mL/hr, or receiving dialysis) limit infusion rate increases to be NO SOONER THAN EVERY 3 HOURS. When new IV tubing is used, completely prime the tubing. Once primed, waste an additional 20 ml of insulin infusion using the IV pump prior to connecting to patient., RoutineIndications:Hyp erglycemia Rate/Dose Change 03/06/2023 6:54 PM CDT 4 Units/hr 4 mL/hr New Bag 03/06/2023 5:05 PM CDT 2 Units/hr 2 mL/hr insulin regular in 0.9% sodium chloride (MYXREDLIN) 100 unit/100 mL (1 unit/mL) infusion (premix) 0-30 Units/hr (0-30 mL/hr), 1 units/mL, intravenous, Titrated, Starting on Thu03/06/23 at 1945, Until 03/07/23 at 1112, Indications: Hyperglycemia, NON-WEIGHT BASED DOSING Blood Glucose (BG) - BG DECREASED OR SAME as last value: Less than 70 mg/dL - Stop insulin infusion *(see below for drip reinitiation instructions). Follow hypoglycemia orders. Notify covering MD. 70 - 100 mg/dL - Stop infusion *(see below for drip reinitiation instructions). Resume BG Q 1 hour. 101 - 160 mg/dL - If BG decreased by greater than or equal to 40 mg/dL, decrease infusion by 50% or stop infusion if less than or equal to 2 units/hour *(see below for drip reinitiation instructions). Resume BG Q 1 hour. If BG decreased less than 40 mg/dL, continue same rate. 161 - 200 mg/dL- If BG decreased by greater than or equal to 60 mg/dL, decrease infusion by 50% or stop infusion if less than or equal to 2 units/hour *(see below for drip reinitiation instructions). Resume BG Q 1 hour. If BG decreased less than 60 mg/dL, continue same rate. 201 - 250 mg/dl - If BG decreased by greater than or equal to 60 mg/dL continue same rate. If decreased by less than 60 mg/dL, increase by 1 unit/hr. 251 - 300 mg/dL - Increase by 2 units/hour. 301 - 349 mg/dL - Increase by 2 units/hour. 350 - 400 mg/dL - Increase by 3 units/hr. Greater than 400 mg/dL - Notify covering MD Blood Glucose (BG) - Blood glucose INCREASED since last value: 70 - 100 mg/dL - Continue to hold infusion 101 - 160 mg/dL - Maintain at present rate or if drip has been off, follow reinitiation instructions* 161 - 200 mg/dL- Increase by or restart at 1 unit/hour or if drip has been off, follow reinitiation instructions* 201 - 250 mg/dL- Give 4 units insulin IVP then increase infusion by 2 units/hour or if drip has been off, follow reinitiation instructions* 251 - 300 mg/dL - Give 4 units insulin IVP then increase infusion by 2 units/hour or if drip has been off, follow reinitiation instructions* 301 - 349 mg/dL - Give 6 units insulin IVP then increase infusion by 3 units/hour or if drip has been off, follow reinitiation instructions* 350 - 400 mg/dL - Give 6 units insulin IVP then increase infusion by 3 units/hour or if drip has been off, follow reinitiation instructions* Greater than 400 mg/dL - Notify covering MD. *Drip Reinitiation Instructions: Check BG Q 1 hour; when BG greater than 100 mg/dL, restart infusion at 50% of the most recent rate. If the most recent rate less than 2 units/hr, contact covering provider for reinitiation or transition plan. Patients with renal failure (CrCl less than 40 mL/min, urine output less than 30 mL/hr, or receiving dialysis) limit infusion rate increases to be NO SOONER THAN EVERY 3 HOURS. When new IV tubing is used, completely prime the tubing. Once primed, waste an additional 20 ml of insulin infusion using the IV pump prior to connecting to patient., RoutineIndications:Hyperglyc emia Rate/Dose Verify 03/07/2023 11:05 AM CDT 2 Units/hr 2 mL/hr Rate/Dose Verify 03/07/2023 8:42 AM CDT 2 Units/hr 2 mL/hr Rate/Dose Verify 03/07/2023 8:00 AM CDT 2 Units/hr 2 mL/hr insulin regular in 0.9% sodium chloride (MYXREDLIN) 100 unit/100 mL (1 unit/mL) infusion (premix) 0-30 Units/hr (0-30 mL/hr), 1 units/mL, intravenous, Titrated, Starting on 03/07/23 at 1145, Until 03/08/23 at 1050, Indications: diabetic ketoacidosis, NON-WEIGHT BASED DOSING Initial rate 2 units/hour. (If patient currently receiving insulin infusion, enter current infusion rate.) Blood Glucose (BG) Decreasing OR Same as Last Value BG less than 100 mg/dL: - Hold insulin infusion and notify MD. Do NOT hold infusion for more than 1 hour. Give D10 250mL IVPB over 15minutes (if BG <50mg/dL and patient has an altered level of consciousness give D50 (25gm) IV Push over 2 minutes instead of D10). - Check BG Q15 minutes and continue treatment until BG >100mg/dL. - Restart Insulin Drip at 50% of the prior IV rate when BG is >100mg/dL. Minimum infusion rate of 1 unit/hour. - Contact MD to determine if the D5W rate should be increased above the 100mL/hour rate. BG 100 - 150 mg/dL: - If BG decreasing by 30mg/dL/hour or more - decrease insulin drip by 50% and call MD. - If BG decreasing by less than 30mg/dL/hour - maintain current drip rate BG 151 - 200 mg/dL: - Add D5W IVPB to current fluid orders at 100mL/hour (if not already done), call MD - If BG decreasing by 76 mg/dL/hour or more - decrease insulin drip by 50% - If BG decreasing by 50-75 mg/dL/hour - decrease insulin drip by 25% - If BG decreasing by less than 50 mg/dL/hour - maintain current drip rate BG 201-250 mg/dL: - Add D5W IVF to current fluid orders at 100mL/hour (if not already done), call MD. - If BG decreasing by 76 mg/dL/hour or more - decrease insulin drip by 50% - If BG decreasing by 30-75 mg/dL/hour - maintain current drip rate - IF BG decreasing less than 30 mg/dL/hour - increase insulin drip by 25% BG greater than 250 mg/dL: - If BG decreasing by greater than 200 mg/dL/hour - decrease drip by 50% - If BG decreasing by 76-199 mg/dL/hour - decrease drip by 25% - If BG decreasing by 51-75 mg/dL/hour - maintain current drip rate. - If BG decreasing by less than 50 mg/dL/hour - increase insulin drip by 25% Blood Glucose (BG) Increasing BG less than 100 mg/dL: - Hold insulin infusion and notify MD. Do NOT hold infusion for more than 1 hour. Give D10 250mL IVPB over 15minutes (if BG <50mg/dL and patient has an altered level of consciousness give D50 (25gm) IV Push over 2 minutes instead of D10). - Check BG Q15 minutes and continue treatment until BG >100mg/dL. - Restart Insulin Drip at 50% of the prior IV rate when BG is >100mg/dL. Minimum infusion rate of 1unit/hour. - Contact MD to determine if the D5W rate should be increased above the 100mL/hour rate. BG 100 - 150 mg/dL: - If patient currently on insulin drip, maintain current rate. - If insulin drip currently held, restart at 50% of the last drip rate. Minimum infusion rate of 1 unit/hr. BG 151 - 200 mg/dL: - Maintain current drip rate BG 201 - 250 mg/dL: - Increase insulin drip by 25% BG greater than 250 mg/dL: - Increase insulin drip by 50% When adjusting drip rate, round changes to the nearest 0.5 units/hour increment For Type I Diabetics or equivalent, Do NOT discontinue drip until insulin maintenance regimen is implemented When new IV tubing is used, completely prime the tubing. Once primed, waste an additional 20 ml of insulin infusion using the IV pump prior to connecting to patient., RoutineIndications:diabetic ketoacidosis Rate/Dose Verify 03/08/2023 10:00 AM CDT 2 Units/hr 2 mL/hr Rate/Dose Verify 03/08/2023 9:00 AM CDT 2 Units/hr 2 mL/hr Rate/Dose Verify 03/08/2023 8:00 AM CDT 2 Units/hr 2 mL/hr Lactated Ringer's (LR) bolus 500 mL 500 mL, intravenous, Once, On Thu03/06/23 at 2300, For 1 dose New Bag 03/06/2023 10:54 PM CDT 500 mL Lactated Ringer's (LR) infusion 30 mL/hr, intravenous, Continuous, Starting on Thu03/12/23 at 1000, Pre-Op Restarted 03/12/2023 12:58 PM CDT Rate/Dose Verify 03/12/2023 10:19 AM CDT 30 mL/ hr New Bag 03/12/2023 9:42 AM CDT 30 mL/hr 30 mL/hr losartan (COZAAR) tablet 25 mg 25 mg, oral, Daily, First dose on Thu03/17/23 at 1400 Given 03/25/2023 8:25 AM CDT 25 mg Given 03/24/2023 9:52 AM CDT 25 mg Given 03/23/2023 9:18 AM CDT 25 mg magnesium sulfate 4 g/100 mL in water (premix) 4 g 4 g, intravenous, Administer over 90 Minutes, Once, On Thu03/06/23 at 2315, For 1 dose New 03/06/2023 10:53 PM CDT 4 g magnesium sulfate 4 g/100 mL in water (premix) 4 g 4 g, intravenous, Administer over 90 Minutes, Once, On Thu03/10/23 at 0500, For 1 dose New Bag 03/10/2023 5:17 AM CDT 4 g meropenem (MERREM) 2,000 mg/120 mL in sodium chloride 0.9% (premix) 2,000 mg 2,000 mg, intravenous, Administer over 30 Minutes, Every 8 hours scheduled, First dose on Thu03/06/23 at 1915, Indications: Abdominal/Pelvic InfectionIndications:Abdominal/Pelvic Infection New Bag 03/09/2023 5:17 AM CDT 2,000 mg New Bag 03/08/2023 9:02 PM CDT 2,000 mg New Bag 03/08/2023 2:03 PM CDT 2,000 mg micafungin (MYCAMINE) 100 mg/100 mL in sodium chloride 0.9% (premix) 100 mg 100 mg, intravenous, at 100 mL/hr, Administer over 60 Minutes, Every 24 hours scheduled, First dose on Thu03/15/23 at 1400, Flush line with sodium chloride 0.9%. Protect from light., Indications: Abdominal/Pelvic InfectionIndications:Abdominal/Pelv ic Infection New Bag 03/25/2023 8:59 AM CDT 100 mg 100 mL/hr New Bag 03/24/2023 9:53 AM CDT 100 mg 100 mL/hr New Bag 03/23/2023 9:20 AM CDT 100 mg 100 mL/hr ondansetron (ZOFRAN) injection 4 mg 4 mg, intravenous, Administer over 2 Minutes, Once, On Thu03/06/23 at 1045, For 1 dose Given 03/06/2023 11:03 AM CDT 4 mg ondansetron (ZOFRAN) injection 4 mg 4 mg, intravenous, Administer over 2 Minutes, Every 4 hours PRN, nausea, vomiting, Starting on Thu03/09/23 at 0835 Given 03/19/2023 2:11 PM CDT 4 mg Given 03/16/2023 1:13 PM CDT 4 mg Given 03/15/2023 9:05 PM CDT 4 mg oxyCODONE (ROXICODONE) tablet 5 mg 5 mg, oral, Every 4 hours PRN, 1st line for pain, Starting on Thu03/06/23 at 1903, Indications: PainIndications:Pain Given 03/23/2023 12:21 PM CDT 5 mg Given 03/21/2023 11:37 AM CDT 5 mg Given 03/20/2023 11:55 PM CDT [address] (PROTONIX) extended release tablet 40 mg 40 mg, oral, Daily, First dose on Thu03/15/23 at 1530, Do not crush, chew, cut, dissolve, open or otherwise manipulate tablet/capsule., Indications: Stress Ulcer ProphylaxisIndications:Stress Ulcer Prophylaxis Given 03/25/2023 8:25 AM CDT 40 mg Given 03/24/2023 9:53 AM CDT 40 mg Given 03/23/2023 9:18 AM CDT 40 mg potassium chloride 40 mEq/520 mL in sodium chloride 0.9% (premix) 40 mEq 40 mEq, intravenous, at 130 mL/hr, Administer over 4 Hours, Once, On Thu03/07/23 at 1530, For 1 dose, Indications: hypokalemiaIndications:hypokalemia New Bag 03/07/2023 3:34 PM CDT 40 mEq 130 mL/hr potassium chloride ER (KLOR-CON) extended release tablet 30 mEq 30 mEq, oral, Every 4 hours, First dose on Thu23 at 2315, For 2 doses, Total dose = 60 mEq Tablets should not be crushed, chewed, dissolved, or otherwise manipulated. Capsules may be opened and sprinkled on a spoonful of applesauce or pudding, but the contents of the capsule should not be crushed or chewed. Given 03/07/2023 1:58 AM CDT 30 mEq Given 03/06/2023 10:50 PM CDT 30 mEq potassium chloride ER (KLOR-CON) extended release tablet 30 mEq 30 mEq, oral, Every 4 hours, First dose on 03/07/23 at 1145, For 2 doses, Total dose = 60 mEq Tablets should not be crushed, chewed, dissolved, or otherwise manipulated. Capsules may be opened and sprinkled on a spoonful of applesauce or pudding, but the contents of the capsule should not be crushed or chewed. Given 03/07/2023 11:22 AM CDT 30 mEq potassium chloride ER (KLOR-CON) extended release tablet 40 mEq 40 mEq, oral, Once, On 03/07/23 at 2230, For 1 dose, Tablets should not be crushed, chewed, dissolved, or otherwise manipulated. Capsules may be opened and sprinkled on a spoonful of applesauce or pudding, but the contents of the capsule should not be crushed or chewed. Given 03/07/2023 10:37 PM CDT 40 mEq prochlorperazine (COMPAZINE) 10 mg/2 mL (5 mg/mL) injection - ADS Override Pull Starting on Thu03/09/23 at 0936, For 1 dose, Created by braydon override prochlorperazine (COMPAZINE) injection 5 mg 5 mg, intravenous, Administer over 2 Minutes, Every 6 hours PRN, nausea, vomiting, 2nd line, Starting on Thu03/09/23 at 0935 Given 03/09/2023 10:20 PM CDT 5 mg Given 03/09/2023 9:38 AM CDT 5 mg ramelteon (ROZEREM) tablet 8 mg 8 mg, oral, Nightly PRN, sleep, Starting on Thu03/16/23 at 1907, Indications: Sleep-Onset InsomniaIndications:Sleep-Onset Insomnia Given 03/18/2023 9:54 PM CDT 8 m g Given 03/16/2023 10:03 PM CDT 8 mg senna (SENOKOT) tablet 1 tablet 1 tablet, oral, Daily, First dose on Thu03/06/23 at 2030 Given 03/09/2023 8:40 AM CDT 1 tablet Given 03/08/2023 8:15 AM CDT 1 tablet Given 03/07/2023 11:22 AM CDT 1 tablet simethicone (MYLICON) chewable tablet 80 mg 80 mg, oral, 2 times daily PRN, flatulence, Starting on 03/15/23 at 1136 Given 03/15/2023 12:31 PM CDT 80 mg vancomycin (VANCOCIN) 2,250 mg in sodium chloride 0.9% 500 mL IVPB 2,250 mg (rounded from 2,340 mg = 15 mg/kg ? 156 kg), intravenous, at 261.3 mL/hr, Administer over 120 Minutes, Every 12 hours, First dose on Thu03/06/23 at 1830, Indications: NSTIIndications:NSTI New Bag 03/09/2023 5:17 AM CDT 2,250 mg 261.3 mL/h r New Bag 03/08/2023 5:57 PM CDT 2,250 mg 261.3 mL/hr New Bag 03/08/2023 7:17 AM CDT 2,250 mg 261.3 mL/hr white petrolatum-mineral oiL (EUCERIN) cream topical, 2 times daily PRN, dry skin, Starting on Thu03/15/23 at 0028, Apply to affected area: wound, perineum, Indications: skin irritationIndications:skin irritation Given 03/17/2023 3:15 AM CDT Given 03/15/2023 4:26 PM CDT Given 03/15/2023 1:00 AM CDT documented in this encounter Discontinued Medications Medication Sig Discontinue Reason Start Date End Da te doxycycline 100 mg capsuleIndications:Sk in/Soft Tissue Infection Take 1 tablet/capsule (100 mg total) by mouth 2 (two) times a day x 10 days Stop Taking at Discharge 03/02/2023 03/25/2023 traMADoL (ULTRAM) 50 mg tabletIndications:Anthony n Take 1 tablet (50 mg total) by mouth every 6 (six) hours as needed for pain x 7 days Stop Taking at Discharge 03/02/2023 03/25/2023 aspirin 325 mg tabletIndications:Antohny n Take 2 tablets (650 mg total) by mouth daily as needed for pain or headaches Stop Taking at Discharge 03/25/2023 documented as of this encounter Active and Recently Administered Medications Times are shown in CDT. Scheduled Medication Order 03/23/2023 03/24/2023 03/25/2023 acetaminophen (TYLENOL) tablet 1,000 mg 1,000 mg, oral, Every 6 hours scheduled, First dose on Thu03/06/23 at 1945 0531 (Given - Provider: Marcos Link, RN)1221 (Given - Provider: Marina Washington, ARYAN)1739 (Given - Provider: Marina Washington RN) 0110 (Not Given - Provider: Annamarie Giron RN - Reason: Patient/family refused)0628 (Given - Provider: Annamarie Giron, ARYAN)1149 (Given - Provider: Marina Washington RN)1816 (Given - Provider: Marina Washington RN) 0003 (Given - Provider: Yancy Stephenson, ARYAN)0521 (Given - Provider: Yancy Stephenson RN)1240 (Given - Provider: Clara Carrizales RN) ampicillin-sulbactam (UNASYN) 3 g/110 mL in sodium chloride 0.9% (premix) 3 g 3 g, intravenous, Administer over 30 Minutes, Every 6 hours scheduled, First dose on Thu03/09/23 at 1345, Indications: Skin/Soft Tissue Infection, wound 0349 (New Bag - Provider: Marcos Link, RN)1126 (New Bag - Provider: Gilma Millan, ARYAN)1200 (Stopped - Provider: Marina Washington RN)1649 (New Bag - Provider: Marina Washington RN)2200 (New Bag - Provider: Annamarie Giron, ARYAN) 0418 (New Bag - Provider: Annamarie Giron, RN)1104 (New Bag - Provider: Marina Washington RN)1140 (Stopped - Provider: Marina Washington RN)1644 (New Bag - Provider: Marina Washington RN)1715 (Stopped - Provider: Marina Washington RN)2139 (New Bag - Provider: Yancy Stephenson RN) 0442 (New Bag - Provider: Yancy Stephenson RN)1018 (New Bag - Provider: Clara Carrizales, ARYAN)1600 (Due) atorvastatin (LIPITOR) tablet 20 mg 20 mg, oral, Nightly, First dose on Thu03/10/23 at 2215 2137 (Given - Provider: Annamarie Giron RN) 2137 (Given - Provider: Yancy Stephenson RN) calcium carbonate (OS-KRISTY) tablet 1,250 mg 1,250 mg (500 mg of elemental calcium), oral, 2 times daily, First dose on Thu03/16/23 at 1330 0918 (Given - Provider: Marina Washington RN)2136 (Given - Provider: Annamarie Giron RN) 09 (Given - Provider: Marina Washington RN)2137 (Given - Provider: Yancy Stephenson RN) 0825 (Given - Provider: Clara Carrizales, ARYAN) enoxaparin (LOVENOX) syringe 40 mg 40 mg, subcutaneous, Every 12 hours scheduled, First dose (after last modification) on Thu03/09/23 at 0915, Indications: Deep Vein Thrombosis Prevention 0919 (Given - Provider: Marina Washington RN)2136 (Given - Provider: Annamarie Giron RN) 09 (Given - Provider: Marina Washington RN)2137 (Given - Provider: Yancy Stephenson RN) 0825 (Given - Provider: Clara Carrizales, ARYAN) ergocalciferol (VITAMIN D) capsule 50,000 Units 50,000 Units, oral, 2 times weekly (Once per day on Thu), First dose (after last modification) on Thu03/16/23 at 1345, For 60 days, Do not crush, break, or open. 0918 (Given - Provider: Marina Washington RN) insulin glargine (LANTUS, SEMGLEE) 100 unit/mL injection 20 Units 20 Units, subcutaneous, Nightly, First dose on Thu03/09/23 at 2100, Do not hold if NPO. Do not mix with other insulins, Indications: Diabetes Mellitus 2135 (Given - Provider: Annamarie Giron RN) 2138 (Given - Provider: Yancy Stephenson RN) insulin lispro (HumaLOG, ADMELOG) 100 unit/mL injection 0-10 Units 0-10 Units, subcutaneous, 3 times daily with meals, First dose on Thu03/09/23 at 1245, Blood glucose mg/dL: 149 or less: No insulin 150-199: add 2 unit 200-249: add 4 units 250-299: add 6 units 300-349: add 8 units and notify physician for adjustment of insulin orders. 350-399: add 10 units and notify physician for adjustment of insulin orders. Over 400: Notify physician for adjustment of insulin orders. Do NOT hold for NPO Status, Indications: Diabetes Mellitus 0918 (Given - Provider: Marina Washington RN)1326 (Given - Provider: Marina Washington RN)1732 (Not Given - Provider: Marina Washington RN - Reason: Order parameters not met) 0952 (Given - Provider: Marina Washington RN)1326 (Given - Provider: Marina Washington RN)1816 (Given - Provider: Marina Washington RN) 0826 (Given - Provider: Clara Carrizales, ARYAN)1219 (Given - Provider: Clara Carrizales, ARYAN) insulin lispro (HumaLOG, ADMELOG) 100 unit/mL injection 0-5 Units 0-5 Units, subcutaneous, Nightly, First dose on Thu03/09/23 at 2100, Blood glucose mg/dL: 149 or less: No insulin 150-199: add 1 unit 200-249: add 2 units 250-299: add 3 units 300-349: add 4 units and notify physician for adjustment of insulin orders. 350-399: add 5 units and notify physician for adjustment of insulin orders. Over 400: Notify physician for adjustment of insulin orders. Do NOT hold for NPO Status, Indications: Diabetes Mellitus 2135 (Given - Provider: Annamarie Grion RN) 2148 (Given - Provider: Yancy Stephenson RN) insulin lispro (HumaLOG, ADMELOG) 100 unit/mL injection 12 Units 12 Units, subcutaneous, 3 times daily with meals, First dose (after last modification) on Thu03/16/23 at 0830, If BG greater than or equal to 100 mg/dL, give dose with meals when tray arrives in the room. If BG less than 100 mg/dL or history of poor intake, give after meals. If patient eating less than 50% of meal, call MD for holding or reducing meal insulin dose. Hold prandial insulin if NPO, unable to eat, or if BG less than 70 mg/dL., Indications: Diabetes Mellitus 0918 (Given - Provider: Marina Washington RN)1325 (Given - Provider: Marina Washington RN)1739 (Given - Provider: Marina Washington RN) 0952 (Given - Provider: Marina Washington RN)1326 (Given - Provider: Marina Washington RN)1815 (Given - Provider: Marina Washington RN) 0826 (Given - Provider: Clara Carrizales, ARYAN)1219 (Given - Provider: Clara Carrizales, ARYAN) losartan (COZAAR) tablet 25 mg 25 mg, oral, Daily, First dose on Thu03/17/23 at 1400 0918 (Given - Provider: Marina Washington RN) 0952 (Given - Provider: Marina Washington, ARYAN) 0825 (Given - Provider: Clara Carrizales, ARYAN) micafungin (MYCAMINE) 100 mg/100 mL in sodium chloride 0.9% (premix) 100 mg 100 mg, intravenous, at 100 mL/hr, Administer over 60 Minutes, Every 24 hours scheduled, First dose on Thu03/15/23 at 1400, Flush line with sodium chloride 0.9%. Protect from light., Indications: Abdominal/Pelvic Infection 0920 (New Bag - Provider: Marina Washington, RN)1020 (Stopped - Provider: Marina Washington, ARYAN) 0953 (New Bag - Provider: Marina Washington RN)1104 (Stopped - Provider: Marina Washington, RN) 0859 (New Bag - Provider: Ti Henry, ARYAN) pantoprazole DR (PROTONIX) extended release tablet 40 mg 40 mg, oral, Daily, First dose on Thu03/15/23 at 1530, Do not crush, chew, cut, dissolve, open or otherwise manipulate tablet/capsule., Indications: Stress Ulcer Prophylaxis 0918 (Given - Provider: Marina Washington RN) 0953 (Given - Provider: Marina Washington RN) 0825 (Given - Provider: Clara Carrizales, ARYAN) PRN Medication Order 03/23/2023 03/24/2023 03/25/2023 dextrose (D10W) 10% bolus 250 mL(Linked Group 1) 250 mL, intravenous, at 1,000 mL/hr, Administer over 15 Minutes, Every 15 min PRN, blood glucose less than 70 mg/dL and UNABLE to swallow/take PO glucose/juice., Starting on Thu03/09/23 at 1200, After treatment for hypoglycemia, recheck BG followed by treatment every 15 minutes until the BG is greater than 100 mg/dL. Then check BG 1 hour post treatment. If BG is less than 100 mg/dL, repeat Q15 minute BG checks and treatment. Call MD for each episode of hypoglycemia., Indications: hypoglycemic disorder dextrose gel in packet 15 g(Linked Group 1) 15 g, oral, Every 15 min PRN, low blood sugar, blood glucose less than 70 mg/dL, Starting on Thu03/09/23 at 1200, If patient is alert and able to eat/drink, give 15 gm glucose or one juice (4 fluid ounces) NOT ORANGE JUICE. After treatment for hypoglycemia, recheck BG followed by treatment every 15 minutes until the BG is greater than 100 mg/dL. Then check BG 1 hour post-treatment. If BG is less than 100 mg/dL, repeat Q15 minute BG checks and treatment. Call MD for each episode of hypoglycemia., Indications: hypoglycemic disorder glucagon injection 1 mg 1 mg, intramuscular, Every 30 min PRN, low blood sugar, blood glucose less than 70 mg/dL AND no IV access AND unable to take PO glucose/juice., Starting on Thu03/09/23 at 1200, After Glucagon is administered, position patient on side if possible to avoid aspiration. Obtain IV access. Follow glucagon treatment with glucose treatment or IV dextrose. After treatment for hypoglycemia, recheck BG followed by treatment every 15 minutes until the BG is greater than 100 mg/dL. Then check BG 1 hour post treatment. If BG is less than 100 mg/dL, repeat Q15 minute BG checks and treatment. Call MD for each episode of hypoglycemia. Reconstitute 1 mg vial with 1 mL SWFI. Use immediately following reconstitution. ondansetron (ZOFRAN) injection 4 mg 4 mg, intravenous, Administer over 2 Minutes, Every 4 hours PRN, nausea, vomiting, Starting on Thu03/09/23 at 0835 oxyCODONE (ROXICODONE) tablet 5 mg 5 mg, oral, Every 4 hours PRN, 1st line for pain, Starting on Thu03/06/23 at 1903, Indications: Pain 1221 (Given - Provider: Marina Washington RN) prochlorperazine (COMPAZINE) injection 5 mg 5 mg, intravenous, Administer over 2 Minutes, Every 6 hours PRN, nausea, vomiting, 2nd line, Starting on Thu03/09/23 at 0935 ramelteon (ROZEREM) tablet 8 mg 8 mg, oral, Nightly PRN, sleep, Starting on Thu03/16/23 at 1907, Indications: Sleep-Onset Insomnia simethicone (MYLICON) chewable tablet 80 mg 80 mg, oral, 2 times daily PRN, flatulence, Starting on 03/15/23 at 1136 white petrolatum-mineral oiL (EUCERIN) cream topical, 2 times daily PRN, dry skin, Starting on 03/15/23 at 0028, Apply to affected area: wound, perineum, Indications: skin irritation Linked Groups Order Group 1: dextrose gel in packet 15 gJump to med 15 g, oral, Every 15 min PRN, low blood sugar, blood glucose less than 70 mg/dL, Starting on Thu03/09/23 at 1200, If patient is alert and able to eat/drink, give 15 gm glucose or one juice (4 fluid ounces) NOT ORANGE JUICE. After treatment for hypoglycemia, recheck BG followed by treatment every 15 minutes until the BG is greater than 100 mg/dL. Then check BG 1 hour post-treatment. If BG is less than 100 mg/dL, repeat Q15 minute BG checks and treatment. Call MD for each episode of hypoglycemia., Indications: hypoglycemic disorder Or dextrose (D10W) 10% bolus 250 mLJump to med 250 mL, intravenous, at 1,000 mL/hr, Administer over 15 Minutes, Every 15 min PRN, blood glucose less than 70 mg/dL and UNABLE to swallow/take PO glucose/juice., Starting on Thu03/09/23 at 1200, After treatment for hypoglycemia, recheck BG followed by treatment every 15 minutes until the BG is greater than 100 mg/dL. Then check BG 1 hour post treatment. If BG is less than 100 mg/dL, repeat Q15 minute BG checks and treatment. Call MD for each episode of hypoglycemia., Indications: hypoglycemic disorder documented in this encounter Orders Medications Ordered That Steffen ht Not Have Been Administered Count Last Ordered Date First Ordered Date ergocalciferol (VITAMIN D) c apsule 50,000 Units 2 03/16/2023 03/08/2023 acetaminophen (TYLENOL) tablet 1,000 mg 1 1 BUPivacaine (MARCAINE) 0.25 % (2.5 mg/mL) preservative free injection 1 03/12/2023 Carrier Fluids for Secondary Infusion - 0.9% Sodium Chloride 1 03/12/2023 haloperidol (HALDOL) injection 1 mg 1 03/12 HYDROmorphone (DILAUDID) injection 0.2 mg 2 03/12/2023 03/06/2023 HYDROmorphone (DILAUDID) injection 0.4 mg 1 03/12/2023 insulin lispro (HumaLOG, ADM ELOG) 100 unit/mL injection 0-10 Units 1 03/12/2023 naloxone (NARCAN) 0.4 mg/mL injection 0.04-0.4 mg 1 03/12/2023 prochlorperazine (COMPAZINE) injection 5 mg 1 03/12/2023 sodium chloride 0.9% flush 0.5-20 mL 1 10/2022 sodium chloride 0.9% irrigation 4 3 03/06/2023 white petrolatum-mineral oiL (EUCERIN) cream 1 03/11/2023 ertapenem (INVanz) 1,000 mg in sterile water 10 mL (100 mg/mL) IV syringe 1 03/10/2023 gentamicin (GARAMYCIN) injection 2 03/10/20 23 03/06/2023 ceFAZolin (ANCEF) 2,000 mg/2 0 mL in sterile water (premix) 2,000 mg 1 03/09/2023 dextrose (D10W) 10% bolus 250 mL 3 03/09/20 23 03/06/2023 dextrose gel in packet 15 g 2 03/09/2023 03/06/2023 glucagon injection 1 mg 2 03/09/202302/07 cholecalciferol (VITAMIN D-3 ) capsule 1,000 Units 1 03/08/2023 insulin lispro (HumaLOG, ADM ELOG) 100 unit/mL injection 0-4 Units 1 03/08/2023 HYDROmorphone (DILAUDID) injection 1 mg 1 0 03/06/2023 insulin regular bolus from bag 4-10 Units 1 03/06/2023 insulin regular bolus from bag 4-6 Units 1 03/06/2023 sodium hypochlorite (DAKIN[employer]S QUARTER STRENGTH) 0.125 % external solution 1 03/06/2023 Lab Orders Without Results Count Last Ordered D ate First Ordered Date POCT GLUCOSE DEVICE 170 03/25/2023 03/06/20 HEPATIC FUNCTION PANEL 1 03/18/2023 PTH 1 03/08/2023 HEMOGLOBIN A1C 1 03/06/2023 Diet Count Last Ordered Date First Orde red Date ADULT DISCHARGE DIET 1 03/25/2023 Nursing Count Last Ordered Date First Orde red Date DISCHARGE ACTIVITY 1 03/25/2023 DISCHARGE CALL PROVIDER 3 03/25/2023 DISCHARGE DRESSING 1 03/25/2023 DISCHARGE INSTRUCTIONS 2 03/25/2023 BW IP INSERT INTERNAL FECAL MANAGEMENT SYSTEM 1 03/07/2023 WEIGH PATIENT 1 03/06/2023 Consult Count Last Ordered Date First Orde red Date CONSULT TO WOUND CARE 3 03/23/2023 10/02/ 2023 IP CONSULT TO MAINTENANCE OPERATOR 2 3 03/06/2023 IP CONSULT TO NUTRITION SERVICES 2 03/11/2003/08/2023 CONSULT TO GENERAL INFECTIOUS DISEASE 1 07/2022 IP CONSULT TO SOCIAL WORK 1 03/09/2023 CONSULT TO ENDOCRINOLOGY DIABETES 1 023 IP CONSULT TO GENERAL SURGERY 1 03/06/2023 IP CONSULT TO PODIATRY 1 03/06/2023 IP CONSULT TO UROLOGY 1 03/06/2023 Admission Count Last Ordered Date First Orde red Date ADMIT TO INPATIENT 1 03/06/2023 Transfer Count Last Ordered Date First Orde red Date TRANSFER PATIENT TO NEW UNIT 2 03/10/2023 03/08/2023 Discharge Count Last Ordered Date First Orde red Date DISCHARGE PATIENT 2 03/25/2023 Case Request Count Last Ordered Date First Orde red Date CASE REQUEST OPERATING ROOM 4 03/11/2023 03/06/2023 documented in this encounter Care Teams Credit Investigator Relationship Specialty Start Date End Date No, Physician PCP - General 03/06/23 03/24/23 Herb Burden MD [id number] [facility] [address] [place] [id number] PCP - General Family Practice 03/25/23 07/27/23 documented as of this encounter
--- OUTSIDE RECORDS SUMMARY | 2024-06-08 00:09 | XMS_ITS | Encounter Summary ---
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 Name Role Phone No, Physician Primary Care Provider [phone] Reason for Visit * Auth/Cert (Routine) Specialty Diagnoses / Procedures Referred By Contac t Referred To Contact Diagnoses Scrotal abscess Perineal abscess [facility]GR[facility] Procedures na Referral ID Status Reason Start Date Expiration Date Visits Re quested Visits Authorized [id number] 1 1 Encounter Details Date Type Department Care Team (Late st Contact Info) Description 03/12/2023 10:19 AM CDT Anesthesia Event [facility] Operating Room [address] [place] [address] Lisa Carrion MD [address] [facility] [address] [place] [address] Key Box ACID PUMPER [id number] [facility] [id number] [place] [address] Anesthesia Record Procedure Summary Procedure Name Responsible Anesthesiologist Anesthesia Start Time Anesthesia Stop Time DEBRIDEMENT PERINEAL WOUND Lisa Carrion MD 03/12/23 1019 03/12/23 1322 Events Date Time Event Comment 03/12/2023 0908 In Preop 0954 1019 An Start 1023 In Room 1024 An Start Data 1032 An Induction The patient was reevaluated immediately before moderate or deep sedation use and before anesthesia induction. 1035 An Intubation 1055 Anesthesia Ready 1101 Proc Start 1110 Incision Start 1255 Proc Fin 1304 An Extubation 1309 an stop data 1313 Out of Room 1321 Handoff to RN I completed my handoff to the receiving nurse during which we: 1. Patient identified 2. Responsible provider identified 3. Pertinent medical history reviewed 4. Procedure type and surgical course discussed 5. Intraoperative anesthetic management and any significant issues discussed 6. Expectations and concerns for postop period discussed 7. Questions solicited from receiving nurse 8. Patient disposition at the time of handoff: No value filed. 1322 An Stop Meds Name Total lidocaine (cardiac) syringe 2 % 100 mg propofol 200 mg fentaNYL 100 mcg HYDROmorphone 2 mg/mL 1 mg succinylcholine 160 mg ondansetron PF (ZOFRAN) 2 mg/mL injectio n 4 mg ampicillin-sulbactam (UNASYN) 3 g/110 mL in sodium chloride 0.9% (premix) 3 g 6 g famotidine 20 mg Lactated Ringer's (LR) infusion 500 mL * Agents Name O2% N2O O2 N2O Air Sevoflurane Inspired Sevoflurane * Blood No blood administrations on file. Lines, Drains, and Airways Type Details Placement Removal Peripheral IV Placement Date: 03/06/23; Placement Time: 0540; Catheter Size: 20 G; Orientation: Right; Location: Antecubital; Site Prep: Chlorhexidine; Technique: Anatomical landmarks; Inserted by: ALEXEI BAEZA; Removal Date: 03/19/23; Removal Time: 1548 03/06/23 0540 by Tanja Hannah RN 03/19/23 1548 by Elysia Clarke, ARYAN RETIRED Wound 03/06/23; 0723; Yes; Ulceration (non-pressure ulcer); Left; Foot (distal left great toe & left ball of great toe); Diabetic ulcer; 05/06/23 03/06/23 0723 by Ila Myers RN 05/06/23 0000 by Smiley Chan RN RETIRED Wound 03/06/23; 1226; Yes; Abscess; Scrotum; reddened scrotum noelle, +edema, tender to touch, not open or weaping; 04/17/23 03/06/23 1226 by Alisia Delarosa RN 04/17/23 0000 by Smiley Chan RN Urethral Catheter Placement Date: 03/06/23; Placement Time: 1703; Inserted by: Carlton Whitfield MD; Type: Straight-tip, Non-latex; Balloon Size: 10 mL; Urine Returned: Yes; Removal Date: 03/12/23; Removal Time: 1118 03/06/23 1703 by Nicole Veloz RN 03/12/23 1118 by Vianey Bhakta RN RETIRED Surgical Site 03/06/23; 1728; Perineum; 04/24/23 03/06/23 1728 by Nicole Veloz RN 04/24/23 0000 by Smiley Chan RN RETIRED Surgical Site 03/07/23; 0945; Scrotum; 04/24/23 03/07/23 0945 by Christie Mehta RN 04/24/23 0000 by Smiley Chan RN Peripheral IV Placement Date: 03/08/23; Placement Time: 05; Catheter Size: 20 G; Orientation: Anterior, Distal, Right; Location: Forearm; Inserted by: dilan baeza; Insertion Attempts: 1; Patient Tolerance: Tolerated well; Removal Date: 03/16/23; Removal Time: 18403/08/23 0530 by Jordi Grewal RN 03/16/23 184 by Nan Tamayo RN ETT Placement Date: 03/12/23; Placement Time: 1036 (created via procedure documentation); Mask Ventilation: 0; Technique: Video laryngoscopy; Type: ETT - single; Single Lumen Tube Size: 8 mm; Cuffed: Yes; Laryngoscope: Hernan; Blade Size: 4; Location: Oral; Insertion Attempts: 1; Placement Verification: Auscultation, Capnometry; Removal Date: 03/12/23; Removal Time: 1304 03/12/23 1036 by Rona Rendon CRNA 03/12/23 1304 by Rona Rendon CRNA Peripheral IV Placement Date: 03/12/23; Placement Time: 1059 (created via procedure documentation); Catheter Size: 18 G; Orientation: Left; Location: Hand; Site Prep: Chlorhexidine; Insertion Attempts: 2; Removal Date: 03/17/23; Removal Time: 1135; Removal Reason: Per patient/family request 03/12/23 1059 by Rona Rendon CRNA 03/17/23 1135 by Nan Tamayo RN Closed/Suction/Open Drain 03/12/23; 1135; No; 1; Perineal (SCROTUM); Bulb; 19 Fr.; 1; Other (Comment) (removed by Urologist) 03/12/23 1135 by Vianey Bhakta RN 03/24/23 0945 by Marina Washington RN Urethral Catheter Placement Date: 03/12/23; Placement Time: 1142; Inserted by: Krista GALVAN; Type: Straight-tip, Non-latex; Balloon Size: 10 mL; Urine Returned: Yes; Removal Date: 03/21/23; Removal Time: 1200; Removal Reason: Per order 03/12/23 1142 by Vianey Bhakta RN 03/21/23 1200 by Deepti Cardenas RN documented in this encounter Social History [...] more drinks on one occasion? Never 03/12/2023 Sex and Gender Information Value Date Recorded Sex Assigned at Not on file Legal Sex Male 7:12 PM [employer] Gender Identity Not on file Sexual Orientation Not on file documented as of this encounter OR Notes * Anesthesia Postprocedure Evaluation - Lisa Carrion MD - 03/12/2023 1:59 PM CDT Patient: Rene Hyatt Procedure Summary Date: 03/12/23 Room / Location: [facility] OR POD 1 ROOM 322 / [facility] OR POD 1 Anesthesia Start: 1019 Anesthesia Stop: 1322 Procedures: DEBRIDEMENT PERINEAL WOUND COMPLEX WOUND CLOSURE (Abdomen) Diagnosis: Perineal abscess (Perineal abscess [L02.215]) Surgeons: Hans Negron MD Responsible Provider: Lisa Carrion MD Anesthesia Type: general ASA Status: 3 Anesthesia Type: general Last vitals BP 151/68 Pulse 85 Temp 37.1 ??C (98.8 ??F) Resp 14 SpO2 94% Anesthesia Post Evaluation Patient location during evaluation: PACU Patient participation: complete - patient participated Level of consciousness: follows simple commands and fully awake Pain score: 4 Pain management: adequate Airway patency: adequate Evidence of recall: no Cardiovascular status: acceptable and hemodynamically stable Respiratory status: acceptable and nasal cannula (2LNC) Hydration status: acceptable Pt is: normothermic Nausea/Vomiting status: none Comments: Post op BG was 156. No notable events documented. * Anesthesia Procedure Notes - Rona Rendon CRNA - 03/12/2023 10:59 AM CDTAssociated Order(s): Peripheral IV Catheter Peripheral IV Catheter Patient location: OR End time: 03/12/2023 10:59 AM Staff: Placed by: Other staff: Hannah Thompson Preprocedure prep: Prep solution: chlorhexadine PPE: gloves and provider hat/mask PIV line: Laterality: left Site: hand Catheter size: 18 g Technique: anatomical landmarks Procedure details: good blood return and occlusive dressing applied Number of attempts: 2 Assessment: Events: patient tolerated procedure well with no complications * Anesthesia Procedure Notes - Rona Rendon CRNA - 03/12/2023 10:35 AM CDTAssociated Order(s): Airway Airway Patient location: OR Urgency: elective Indications for airway management: anesthesia Difficult airway: no Staff: Supervising provider: Lisa Carrion MD Placed by: Other staff: Hannah Thompson Emergent airway documentation: Risks and benefits discussed: yes Consent obtained: yes Consent given by: patient Airway prep: Preoxygenated: yes Patient position: sniffing Mask difficulty assessment: 0 - not attempted Spontaneous ventilation during airway: absent Sedation level during airway: GA Final airway details: Final airway type: endotracheal airway Tube type: ETT ETT size: 8.0 mm Cuffed: yes Technique used for successful ETT placement: video laryngoscopy Devices/Methods used in placement: intubating stylet Insertion site: oral Blade type: Hernan Video blade type: Palmer Blade size: 4 Cormack-Lehane (video): grade IIa - partial view of glottis Cuff inflated with: air ETT to teeth: 22 cm Placement verified by: auscultation and CO2 detection Airway secured with: silk tape Number of attempts: 1 * Anesthesia Preprocedure Evaluation - Lisa Carrion MD - 03/11/2023 1:20 PM CDT Images from the original note were not included. 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 Past Medical History Information obtained from: patient and chart. Neurological + Psychiatric history (2/2 providing care for his mother. Denies current HI/SI) - depression and anxiety Pertinent negatives: seizures; neuromuscular disease; CVA/stroke; TIA; CEA; ICA stenosis; dementia/mild cognitive impairment and carotid artery stent Cardiovascular Pertinent negatives: hypertension ; CAD ; MS ; CABG ; valvular heart disease; valve replacement; atrial fibrillation; arrhythmia; pacemaker/ICD; PVD; DVT/PE; negative for CHF; drug-eluting stent(s); bare metal stent(s) and coronary angioplasty Respiratory Pertinent negatives: COPD; asthma; sleep apnea (WEST); pulmonary hypertension; no O2 use outside thehospital and non-smoker Hepatic / Heme Pertinent negatives: liver disease; history of anemia; history of thrombocytopenia and history of Keenan positive Gastrointestinal Pertinent negatives: GERD and hiatal hernia Renal / Pertinent negatives: renal disease; dialysis and nephrolithiasis Musculoskeletal/Pain Pertinent negatives: chronic pain; chronic opioid use and previous treatment for opioid use disorder Endocrine / Other + Diabetes mellitus - Diabetes type 2. Diagnosed: 03/06/2023. Outpatient insulin use: none. Pt reported HgA1c: 13.3. Pt reported HgA1c date: 03/06/2023. + Obesity (BMI >30)- morbid obesity (BMI>40). + Infectious disease - wound infection and necrotizing fasciitis. Pertinent negatives: thyroid disease; cancer history; rheumatological disease and transplanted organ Functional Capacity Functional capacity: 4-6 METs Comments: The patient states that he is able to walk up two flights of stairs without chest pain ordyspnea. Review of Systems + productive cough (pt reports clear to white, occasionally yellow tinged sputum. At baseline) + fever + palpitations (once every 3-4 months) + pedal edema (left ankle) + dizziness (prior to coming to hospital. Pt attributes this to hyperglycemia.) + chipped/loose teeth (front lower left tooth is chipped.) Pertinent negatives: wheezing; SOB; recent cold/flu; chest pain; orthopnea; PND; heavy menses; Sickle Cell disease/trait; previous transfusion; transfusion reaction; melena/hematochezia; easy bruising; bleeding problems; syncope; muscle weakness; chronic pain; numbness/tingling; hard of hearing; vision loss; heartburn; nausea; dysphagia; diarrhea; dentures/partials; abdominal pain; diaphoresis and no unexpected weight change PAT Summary and Plans Cardiac risk classification of planned procedure: intermediate cardiac risk. Recommendations for patient: verify follow-up appointments and medication compliance. Preoperative assessment status: complete. Additional comments: Rene Hyatt is a 42 y.o. male who is being evaluated prior to undergoingan intermediate cardiac risk surgery. Revised Cardiac Risk Index factors are (current insulin therapy for diabetes-DM diagnosed during current hospital stay) for a total RCRI of 1 out of 6. Functional capacity is 4- 6 METs. Obstructive sleep apnea (WEST) screening status is HIGH RISK due to known WEST. Order set initiated. Blood bank needs for day of procedure: No type and screen needed Pending labs/tests include: CBC (03/10/2023-WBC 8.8, H/H 11.4/35, platelets [id number]), BMP (03/10/2023-Creatinine 0.68) Preoperative evaluation performed by Kailyn Younger NP on 03/11/23 at 1:26 PM. . Patient Active Problem List Diagnosis Scrotal abscess Diabetes mellitus, new onset (CMS/HCC) (HCC) Vitamin D deficiency Diabetic foot ulcer (CMS/HCC) (HCC) Anemia Perineal abscess History reviewed. No pertinent past medical history. History reviewed. No pertinent surgical history. No Known Allergies Taking? Last Dose Start Date End Date Provider ytqddobowheoc-yzmxxdj-pbarydrz (EXCEDRIN MIGRAINE) 250-250-65 mg per tablet -- -- -- ProviderKatie MD aspirin 325 mg tablet -- -- -- ProviderKatie, doxycycline 100 mg capsule -- 03/02/23 03/12/23 Herb Burden MD traMADoL (ULTRAM) 50 mg tablet () -- 03/02/23 03/09/23 Herb Burden MD Current Facility-Administered Medications: acetaminophen (TYLENOL) tablet 1,000 mg, 1,000 mg, oral, Q6H ASTON, 1,000 mg at 03/11/23 1152 ampicillin-sulbactam (UNASYN) 3 g/110 mL in sodium chloride 0.9% (premix) 3 g, 3 g, intravenous, Q6H ASTON, Last Rate: 0 mL/hr at 03/10/23 0240, 3 g at 03/11/23 1006 atorvastatin (LIPITOR) tablet 20 mg, 20 mg, oral, Nightly, 20 mg at 03/10/23 2241 calcium carbonate (TUMS) chewable tablet 1,000 mg, 400 mg of elemental calcium, oral, Daily, 1,000 mg at 03/11/23 0743 dextrose gel in packet 15 g, 15 g, oral, Q15 Min PRN OR dextrose (D10W) 10% bolus 250 mL, 250 mL, intravenous, Q15 Min PRN enoxaparin (LOVENOX) syringe 40 mg, 40 mg, subcutaneous, Q12H ASTON, 40 mg at 03/11/23 0743 ergocalciferol (VITAMIN D) capsule 50,000 Units, 50,000 Units, oral, Weekly, 50,000 Units at 03/09/23 0008 glucagon injection 1 mg, 1 mg, intramuscular, Q30 Min PRN insulin glargine (LANTUS, SEMGLEE) 100 unit/mL injection 20 Units, 20 Units, subcutaneous, Nightly,20 Units at 03/10/23 220 insulin lispro (HumaLOG, ADMELOG) 100 unit/mL injection 0-10 Units, 0-10 Units, subcutaneous, TID with meals, 4 Units at 03/11/23 1310 insulin lispro (HumaLOG, ADMELOG) 100 unit/mL injection 0-5 Units, 0-5 Units, subcutaneous, Nightly, 1 Units at 03/09/23 2136 insulin lispro (HumaLOG, ADMELOG) 100 unit/mL injection 6 Units, 6 Units, subcutaneous, TID with meals, 6 Units at 03/11/23 1310 ondansetron (ZOFRAN) injection 4 mg, 4 mg, intravenous, Q4H PRN, 4 mg at 03/09/23 1937 oxyCODONE (ROXICODONE) tablet 5 mg, 5 mg, oral, Q4H PRN, 5 mg at 03/11/23 0743 prochlorperazine (COMPAZINE) injection 5 mg, 5 mg, intravenous, Q6H PRN, 5 mg at 03/09/23 2220 Social History Tobacco Use Smoking Status Never Smokeless Tobacco Not on file Alcohol Use: Not on file Substance and Sexual Activity Drug Use Not on file History reviewed. No pertinent family history. PAT Physical Exam Airway Exam: Mallampati: III TM distance: 3 Patient presents with mustache and martino. Cardiovascular Exam: Rate: regular Rhythm: regular Murmur: grade II/ Pulmonary Exam: LCTA, bilat EENT Exam: trachea midline Dental Exam: Chipped Skin Exam: Capillary refill is < 3 seconds. Turgor is normal. (Wound vac in place) Abdominal exam: Abdomen is soft. Bowel sounds are present. Current state: Patient's current state is cooperative. Line/Drains/Tubes/Devices: (Indwelling urinary catheter) Vitals: 03/11/23 0455 03/11/23 0810 03/11/23 1155 BP: 139/62 130/69 128/64 Pulse: 81 79 83 Resp: 18 16 16 Temp: 36.7 ??C (98.1 ??F) 36.9 ??C (98.5 ??F) 36.3 ??C (97.4 ??F) SpO2: 94% 96% 93% Relevant diagnostics: ECG(s): -03/06/2023-SR, incomplete RBBB, 91 bpm Echocardiogram(s): N/A Stress test(s): N/A Cardiac catheterization(s): N/A PFT(s): N/A Vascular studies: N/A Other: N/A PT: 03/06/2023: 18.3 sec (H) INR: 03/06/2023: 1.61 (H) APTT: No results found for requested labs within last 30 days. Hgb A1C: 03/06/2023: 13.3 % (H) CBC RBC: 03/10/2023: 4.17 M/cumm (L) RDW: No results found for requested labs within last 30 days. MCHC: 03/10/2023: 32.6 g/dL MCH: 03/10/2023: 27.3 pg MCV: 03/10/2023: 83.9 fL Hct: 03/10/2023: 35.0 % (L) Hgb: 03/10/2023: 11.4 g/dL (L) WBC: 03/10/2023: 8.8 K/cumm MPV: 03/10/2023: 8.9 fL (L) Platelets: 03/10/2023: 270 K/cumm RDW CV: 03/10/2023: 13.0 % RDW Sd: 03/10/2023: 39.6 fL BMP Glucose: 03/11/2023: 241 mg/dL (H) Calcium: 03/10/2023: 8.3 mg/dL (L) Sodium: 03/10/2023: 139 mmol/L Potassium: 03/10/2023: 4.1 mmol/L CO2: 03/10/2023: 31 mmol/L Chloride: 03/10/2023: 101 mmol/L BUN: 03/10/2023: 12 mg/dL Creatinine: 03/10/2023: 0.68 mg/dL (L) DOS Physical Exam Medical history, medications, and allergies reviewed. Attestation: This PAT evaluation 03/12/2023. Airway Exam: Mallampati: III Cervical ROM: FROM TM distance: >4 Cardiovascular Exam: Rate: regular Rhythm: regular Pulmonary Exam: LCTA, bilat EENT Exam: trachea midline Dental Exam: Appears intact Anesthesia Plan ASA 3 Planned anesthesia: General Team communication plan: oral ET tube Induction: Induction: intravenous and RSI. Postoperative Plan: Postoperative administration opioids intended. Patient's planned disposition post procedure is Floor. Informed Consent: Anesthesia plan and risks discussed with patient. Consent and Attending signature: I and/or my designee have discussed the anesthesia plan, benefits, possible alternatives, parental presence at time of induction (if indicated), and clinically relevant risks that may include dental injury, unintentional awareness, and/or other complications. The patient and/or parent/legal guardian understand, and agree to proceed. All questions answered. documented in this encounter Plan of Treatment Not on file documented as of this encounter Procedures Procedure Name Priority Date/Time Associated Diagnosis Comments NM AN PROCEDURE PLACEHOLDER Routine 03/12/2023 10:59 AM CDT NM AN PROCEDURE PLACEHOLDER Routine 03/12/2023 10:35 AM CDT NM AN ELECTIVE ENDOTRACHEAL AIRWAY Routine 03/12/2023 10:35 AM CDT documented in this encounter Results * NM AN PROCEDURE PLACEHOLDER (03/12/2023 10:59 AM CDT) Narrative Rona Rendon CRNA - 03/12/2023 10:59 AM CDT Rona Rendon CRNA ? 03/12/2023 10:59 AM Peripheral IV Catheter Patient location: OR End time: 03/12/2023 10:59 AM Staff: Placed by: Other staff: Hannah Thompson Preprocedure prep: Prep solution: chlorhexadine PPE: gloves and provider hat/mask PIV line: Laterality: left Site: hand Catheter size: 18 g Technique: anatomical landmarks Procedure details: good blood return and occlusive dressing applied Number of attempts: 2 Assessment: Events: patient tolerated procedure well with no complications Lisa Carrion MD ANESTHESIA ORDERABLES Final Result * NM AN ELECTIVE ENDOTRACHEAL AIRWAY, NM AN PROCEDURE PLACEHOLDER (03/12/2023 10:35 AM CDT) Narrative Rona Rendon CRNA - 03/12/2023 10:35 AM CDT Rona Rendon CRNA ? 03/12/2023 10:36 AM Airway Patient location: OR Urgency: elective Indications for airway management: anesthesia Difficult airway: no Staff: Supervising provider: Lisa Carrion MD Placed by: Other staff: Hannah Thompson Emergent airway documentation: Risks and benefits discussed: yes Consent obtained: yes Consent given by: patient Airway prep: Preoxygenated: yes Patient position: sniffing Mask difficulty assessment: 0 - not attempted Spontaneous ventilation during airway: absent Sedation level during airway: GA Final airway details: Final airway type: endotracheal airway Tube type: ETT ETT size: 8.0 mm Cuffed: yes Technique used for successful ETT placement: video laryngoscopy Devices/Methods used in placement: intubating stylet Insertion site: oral Blade type: Hernan Video blade type: Palmer Blade size: 4 Cormack-Lehane (video): grade IIa - partial view of glottis Cuff inflated with: air ETT to teeth: 22 cm Placement verified by: auscultation and CO2 detection Airway secured with: silk tape Number of attempts: 1 Neno Lei MD ANESTHESIA ORDERABLES Fin al Result documented in this encounter Visit Diagnoses Not on filedocumented in this encounter Administered Medications Inactive Administered Medications - up to 3 most recent administrations Medication Order MAR Action Action Date Dose Rate Site ampicillin-sulbactam (UNASYN) 3 g/110 mL in sodium chloride 0.9% (premix) 3 g 3 g, intravenous, Administer over 30 Minutes, Every 6 hours scheduled, First dose on Thu03/09/23 at 1345, Indications: Skin/Soft Tissue Infection, woundIndications:Skin/Soft Tissue Infection,wound New Bag 03/25/2023 10:18 AM CDT 3 g New Bag 03/25/2023 4:42 AM CDT 3 g New Bag 03/24/2023 9:39 PM CDT 3 g famotidine (PEPCID) injection intravenous, Administer over 2 Minutes, As needed, Starting on Inna 03/12/23 at 1114, Anesthesia Intra-op Given 03/12/2023 11:14 AM CDT 20 mg fentaNYL (SUBLIMAZE) preservative free injection intravenous, As needed, Starting on Inna 03/12/23 at 1032, Anesthesia Intra-op Given 03/12/2023 10:32 AM CDT 100 mc g HYDROmorphone (DILAUDID) injection intravenous, Administer over 2 Minutes, As needed, Starting on Inna 03/12/23 at 1111, Anesthesia Intra-op Given 03/12/2023 1:06 PM CDT 0.2 mg Given 03/12/2023 11:27 AM CDT 0.4 mg Given 03/12/2023 11:11 AM CDT 0.4 mg Lactated Ringer's (LR) infusion 30 mL/hr, intravenous, Continuous, Starting on Inna 03/12/23 at 1000, Pre-Op Restarted 03/12/2023 12:58 PM CDT Rate/Dose Verify 03/12/2023 10:19 AM CDT 30 mL/ hr New Bag 03/12/2023 9:42 AM CDT 30 mL/hr 30 mL/hr lidocaine (cardiac) (XYLOCAINE) preservative free injection intravenous, As needed, Starting on Inna 03/12/23 at 1033, Anesthesia Intra-op, Indications: Ventricular ArrhythmiasIndications:Ventricular Arrhythmias Given 03/12/2023 10:33 AM CDT 100 mg ondansetron (ZOFRAN) injection intravenous, Administer over 2 Minutes, As needed, Starting on Inna 03/12/23 at 1244, Anesthesia Intra-op Given 03/12/2023 12:44 PM CDT 4 mg propofoL (DIPRIVAN) 10 mg/mL IV intravenous, As needed, Starting on Inna 03/12/23 at 1033, Anesthesia Intra-op Given 03/12/2023 10:33 AM CDT 200 mg succinylcholine (ANECTINE) injection intravenous, As needed, Starting on Inna 03/12/23 at 1033, Anesthesia Intra-op Given 03/12/2023 10:33 AM CDT 160 mg documented in this encounter Care Teams 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
--- OUTSIDE RECORDS SUMMARY | 2024-06-08 00:09 | XMS_ITS | Encounter Summary ---
Author Organization [facility] Healthcare Address [address] [place] [address] Care Team Providers Care C2 Tactical Analysis Technician Name Role Phone No, Physician Primary Care Provider [phone] Reason for Visit * Reason Comments Groin Swelling * Auth/Cert (Routine) Specialty Diagnoses / Procedures Referred By Contac t Referred To Contact Diagnoses Scrotal abscess Perineal abscess FOUNIER'S GANGRENE Procedures na Referral ID Status Reason Start Date Expiration Date Visits Re quested Visits Authorized [id number] 1 1 Encounter Details Date Type Department Care Team (Late st Contact Info) Description 03/12/2023 10:30 AM CDT - 03/12/2023 1:20 PM CDT Surgery [facility] Operating Room [address] [place] [address] Hans Negron MD [address] [facility] [place] [address] DEBRIDEMENT PERINEAL WOUND Surgery Details Date/Time Status Location OR Service Patient Class Case Cl ass Case Type Trauma Case? 03/12/2023 10:30 AM Posted [facility] OR POD 1 322 Urology Inpatient Time Sensitive - 1 Week Panel 1 Procedure LRB Anes Op Region Wound Class Comments DEBRIDEMENT PERINEAL WOUND N/A General Class II - Clean Contaminated perineum/scrotum COMPLEX WOUND CLOSURE N/A General Abdomen Cla ss II - Clean Contaminated Perineum/scrotum Surgeon Surgeon Role Service Panel Hans Negron MD Primary Urology 1 Dagoberto Paredes MD Resident - Assisting Genera l Surgery 1 Desiree Velasco MD Fellow Urology 1 Deric Deal MD Resident - Assisting Urology 1 Case Notes 03/11- Moved case up per Holly via phone call.EF03/11- Missing [facility] email sent to Cesia. 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 Gender Identity Not on file Sexual Orientation Not on file documented as of this encounter Last Filed Vital Signs Vital Sign Reading Time Taken Comments Blood Pressure 143/66 03/12/2023 1:20 PM CDT Pulse 82 03/12/2023 1:20 PM CDT Temperature 37.1 ??C (98.8 ??F) 03/12/2023 9:30 AM CD T Respiratory Rate 14 03/12/2023 1:20 PM CDT Oxygen Saturation 98% 03/12/2023 1:20 PM CDT Inhaled Oxygen Concentration - - Weight 161.7 kg (356 lb 7.7 oz) 03/06/2023 7:40 PM CDT Height 198.1 cm (6' 6 ) 03/06/2023 7:40 PM CDT Body Mass Index 41.2 03/06/2023 7:40 PM CDT documented in this encounter Discharge Summaries * Ira Starks NP - 03/25/2023 3:33 PM CDT Inpatient Discharge Summary BRIEF OVERVIEW Admitting Provider: Hans Negron MD Discharge Provider: Lamonte Guzmán MD Primary Care Physician at Discharge: Herb Burden MD [phone] Admission Date: 03/06/2023 Discharge Date: 03/25/2023 Admission Location: [facility] Problems/Diagnoses: Principal Problem: Scrotal abscess Active Problems: T1DM (type 1 diabetes mellitus) (HCC) Diabetic foot ulcer (CMS/HCC) (HCC) Hypertension Vitamin D deficiency Anemia Class 3 obesity (HCC) Resolved Problems: Yamila's gangrene Adjustment disorder DETAILS OF HOSPITAL STAY Presenting Problem/History of Present Illness: Mr. 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 He was started on clindamycin, cefe/vanc and transferred to [facility] on 03/06for urology evaluation. On presentation, he [...] sent. He was on martha, vanc at [facility]. His culture results are as follows: BCx [...] 42 year old male who presented to [facility] ED with a chief complaint of perineal / scrotal pain and swelling and a foot ulcer. CT there showed a perineal fluid collection / abscess with gas in the collection and he was transferred to [place] for surgical care. 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 Home health RN to continue [...] XR Wrist Left 3 or More Views [[id number]] Collected: 03/13/231832 Order Status: Completed Updated: 03/13/231834 [...] Jeter MD Arterial Duplex Lower Extremity Bilateral [[id number]] Collected: 03/06/23 1352 Order Status: Completed Updated: 03/07/23 1224 Narrative: [employer] - Department of Vascular Surgery, Vascular Laboratory [address] [place] [address] [place] Lower Extremity Arterial Duplex Report Patient Name: RENE HYATT M : 1980 Study Date: 03/06/2023 1:52:30 PM Gender: M Tech: TF Location: 2183 Ref.Provider: ANIL BIRMINGHAM Quality: Adequate Order Provider: ANIL BIRMINGHAM Procedures: Arterial Report: Bilateral Lower Extremity Arterial Duplex Exam. Indications: Left foot metatarsal base ulcer, and left big toe ulcer, did not know he has diabetes. Measurements: Right Lower Left Lower Measurement Value Units Measurement Value Units Rt CAFE MANAGER Dst PSV 93 cm/s Lt CAFE MANAGER Dst PSV 154 cm/s Rt Profunda Prx [...] Right Lower Left Lower - Findings: Performing Stamping Operator: Anca Alexis RVT (Jackson). Right Common Femoral: [...] Duplex imaging of the bilateral lower extremity [place] arteries reveals patent vessels with no flow [...] above. Electronically Signed By: Alberto Ching MD [facility] 2023-03-07 12:23:36 CDT CC: CC: US Arterial Doppler Lower Extremity Bilateral [[id number]] Collected: 03/06/23 1353 Order Status: Completed Updated: 03/07/23 1241 Narrative: [facility] - Department of Vascular Surgery, Vascular Laboratory [address] [place] [address] Lower Extremity Arterial Doppler Report Patient Name: RENE HYATT M : 1980 Study Date: 03/06/2023 1:53:00 PM Gender: M Tech: Anca Alexis [facility] Location: 2183 Ref.Provider: ANIL BIRMINGHAM Quality: Adequate [...] mmHg Lt Brachial Pressure 110 mmHg Rt EXPERIMENTAL PSYCHOLOGIST Pressure 162 mmHg Lt EXPERIMENTAL PSYCHOLOGIST Pressure 158 mmHg Rt DPA Pressure 159 [...] Right - Left - - Findings: Performing Stamping Operator: Anca Alexis RVT (Jackson). Bilateral All Levels [...] above. Electronically Signed By: Alberto Ching MD [facility] 2023-03-07 12:41:16 CDT CC: CC: XR Foot Left 3 or More Views [[id number]] Collected: 03/06/23714 Order Status: Completed Updated: 03/06/23728 [...] Javier Owusu M.D. AG: JUSTINA Report ID: [id number] Reading Location: [id number] XR Chest 1 Vw Portable [[id number]] Collected: 03/06/23654 Order Status: Completed Updated: 03/06/23657 [...] Wander García M.D. RB: SALLY Report ID: [id number] Reading Location: [id number] CT Abdomen Pelvis W Contrast [[id number]] Collected: 03/06/23634 Order Status: Completed Updated: 03/06/23648 [...] Registered Dietitian. Additional resources available from the [place] [employer] can be found at www.diabetes.org/nutrition Other Instructions Ambulatory referral to Home Health Service Line: Home Health Primary disciplines requested: [facility] Services: Disease and Medication Management [...] under water untilcompletely healed. Home Health agency: [facility] (P: [phone]) You should be contacted by the home health care agency within 1-2 days regarding scheduling a visit. If you don't hear from them, please call the number listed above to follow-up. Thank you Discharge Medications: Current Medications TAKE these medications vmjqpxdnqdyaw-lvxkunw-cjvyhzqg 250-250-65 mg per tablet Take 1 tablet [...] Contact Information for Follow-ups Dr. Herb Burden [address] [address] Next Steps: Go on 04/01/2023 Instructions: Your appointment is at 10:40 AM. Please arrive 15 minutes early. Bring a photo ID, insurance card and a list of any current medications with you to the appointment. [facility] Home Care Services Specialty: Home Health and Hospice [address] [address] Next Steps: Follow up Questions: Service Line: Home Health Primary disciplines requested: [facility]: Disease and Medication Management [...] fall risk Referral Status: Some Visits Scheduled [facility] (All Locations) Next Steps: Follow up Questions: Please select the performing region: [facility] (All Locations) # of visits: 1 Referral [...] Registered Dietitian. Additional resources available from the [place] [employer] can be found at www.diabetes.org/nutrition * Appointments* Graham Salmeron, RN - 03/11/2023 11:56 AM CDT * Discharge Instr - Other Orders* Graham Salmeron, RN - 03/24/2023 11:41 AM CDT Home Health agency: [facility] Home Health (P: [phone]) You should be contacted by the home [...] Means Destination Comment s Discharge to home, [facility] HOME HEALTH documented in this encounter Progress [...] discharge needs arise, please contact the covering Assembler [employer]ishing Floats. 03/09/23 4405 Discharge Summary Discharge Disposition Private residence Equipment/Provider Needs No Home Needs Identified;Home Provider Services Needs Identified Home Care Agency Information Home Care Agency Type #1: [facility] Agency Name [facility] Home Health Home Care Agency Phone Number [phone] Home Care Agency Contact Spoken to Eric Home Care Agency Order Faxed to [facility] Second Home Care Agency Used? Not Needed Discharge Additional Assistance Financial assistance Discharge medication assistance needed Does the patient need discharge transport arranged? Yes Has discharge transport been arranged? Yes Details of Transportation [facility] to patient's home Trip #[id number] D/C Transport Anticipated Date 03/25/23 D/C Transport [...] are agreeable with plan. * Ira Starks TILE FINISHER - 03/25/2023 3:03 PM CDT Daily Progress Note Division of Hospital Medicine Name: Rene Hyatt : 1980 Today's Date: March 25, 2023 Age: 42 y.o. 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 - plan for vit d 2k daily after 50k loading phase - f/u with PCP Code status : Full Code Diet : Adult Diet Restricted; Consistent Carbohydrate Adult Discharge Diet PT/OT Dispo Rec : PT Recommendation/Plan: Inpatient Rehab Facility / OT Recommendation: [facility] Facility Supplementary Attestation Today, I am treating [...] Patient was seen and examined with the TILE FINISHER on 03/25/2023. Agree with the assessment and plan as outlined above. * Cristela Rios OT - 03/25/2023 8:20 AM CDT Occupational [...] rec per pt progress Recommendation/Plan OT Recommendation [facility] Facility Patient at high risk for Falls;Readmission;Injury [...] not assigned to this patient, please call [phone]. Multi-Disciplinary Problems (from Occupational Therapy) Active Problems [...] Goal Details: Mod I * Ira Starks NP - 03/24/2023 5:18 PM CDT Daily Progress Note Division of Hospital Medicine Name: Rene Hyatt : 1980 Today's Date: March 24, 2023 Age: 42 y.o. male Admission: 03/06/2023 Bed: [id number] LOS: 18 days Subjective Chief complaint: Scrotal [...] wound. Urology notified. Recommend betadine solution and ARELI. Scrotal drain removed today. CM following for assistance with HHRN. Objective Scheduled Meds PRN Meds Infusions acetaminophen, 1,000 mg, oral, Q6H ASTON ampicillin-sulbactam, 3 g, intravenous, Q6H ASTON atorvastatin, 20 mg, oral, Nightly calcium carbonate, 500 mg of elemental calcium, oral, BID enoxaparin, 40 mg, subcutaneous, Q12H [facility] ergocalciferol, 50,000 Units, oral, Once per day on Mon Inna insulin glargine, 20 Units, subcutaneous, Nightly insulin lispro, 0-10 Units, subcutaneous, TID with meals insulin lispro, 0-5 Units, subcutaneous, Nightly insulin lispro, 12 Units, subcutaneous, TID with meals losartan, 25 mg, oral, Daily micafungin, 100 mg, intravenous, Q24H [facility] pantoprazole DR, 40 mg, oral, Daily dextrose, [...] 03/21 AM T1DM (type 1 diabetes mellitus) ([facility]) Assessment & Plan Newly diagnosed [...] losartan 25 03/17 Diabetic foot ulcer (CMS/HCC) ([facility]) Assessment & Plan Wound to [...] diabetic shoes with custom offloading inserts for correction sheogear - Heel strike shoe is causing [...] major motivator for patient Class 3 obesity ([facility]) Assessment & Plan Complicates all [...] x 2 months and calcium supplementation for p0snntep. - plan for vit d 2k daily after 50k loading phase - f/u with PCP Code status : Full Code Diet : Adult Diet Restricted; Consistent Carbohydrate PT/OT Dispo Rec : PT Recommendation/Plan: Inpatient Rehab Facility / OT Recommendation: Inpatient Rehab Facility Supplementary Attestation The total encounter time on this service date was 50 minutes which was spent performing a jfgz-oe-xguh encounter and personally completing the provider-level activities [...] Patient was seen and examined with the TILE FINISHER on 03/24/2023. Agree with the assessment and plan as outlined above. * File, Vianey Mcduffie NP - 03/24/2023 10:08 AM CDT Urology Progress Note Rene Hyatt : 1980 Subjective 42 year old male with perineal/scrotal pain and swelling transferred from [facility] with concern for Yamila's gangrene. He was [...] [phone] Resp: 18 18 16 Temp: 36.9 ??C (98.5 [...] Age: 42 y.o. male Admission: 03/06/2023 Bed: [place] [id number] LOS: 17 days Subjective Chief complaint: Scrotal abscess Interval History NAEON. Patient upset regarding inability to go to [facility]. CM following for assistance, patient would prefer to [...] 03/21 AM T1DM (type 1 diabetes mellitus) (HCC) Assessment [...] losartan 25 03/17 Diabetic foot ulcer (CMS/HCC) (HCC) Assessment & Plan Wound to planter 1st [...] diabetic shoes with custom offloading inserts for correction sheogear - Heel strike shoe is causing [...] x 2 months and calcium supplementation for j6uzlsfp. - plan for vit d 2k daily after 50k loading phase - f/u with PCP Code status : Full Code Diet : Adult Diet Restricted; Consistent Carbohydrate PT/OT Dispo Rec : PT Recommendation/Plan: Inpatient Rehab Facility / OT Recommendation: Inpatient Rehab Facility Supplementary Attestation The total encounter time on this service date was 51 minutes which was spent performing a xymr-av-voph encounter and personally completing the provider-level activities [...] with the non- physician provider. * Graham Salmeron RN - 03/23/2023 11:21 AM CDT Assembler Fishing Floats noted patient has been recommended for IPR by PT/OT. Assembler Fishing Floats met with the patientat bedside to discussion recommendations by therapy and to work on a potential discharge disposition plan since patient is not an IPR rehab candidate per Kristie and AKIN. Assembler Fishing Floats provided education to patient on therapy recommendations and home health services. Patient reported he was interested in home health. poolroom/poolhall manager provided a home health list to patient and family. Patient and family selected the following choices (preference order): NO PREFERENCE poolroom/poolhall manager sent out referrals via [facility]. CM awaiting acceptance from a home health agency and willcontinue to work on discharge planning with patient and family. Patient not wishing to discharge to a SNF at this time and wishes to discharge to home with Home Health services if available. Stanton Salemron RN BSN Auto Body Repair Teacher For emergent Case Management needs before 7 AM or after 3:30 PM Thursday-Thursday, please call the cash applications associate. For weekend and holiday Case Management needs from the hours of 8:00 AM to 4:30 PM, please see EpicTreatment team the assigned weekend Assembler [employer]ishing [employer]ats. * Riya Madison, PT - 03/23/2023 9:00 [...] treatment team and contact the PT or EXPERIMENTAL PSYCHOLOGIST currently assigned to this patient. If a physical therapy clinician is not assigned to this patient, please call [phone]. 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 Basic Mobility - 6 [...] to maintain strength and improve ROM * Jaleesa Abel - 03/23/2023 7:56 AM [...] not assigned to this patient, please call [phone]. 03/23/23 7054 General Session Type Treatment OT Received On [...] not assigned to this patient, please call [phone]. 03/23/23 0753 General Session Type Treatment OT Received On [...] motivated to increase independence and return to OF but required cues/assist for safety and technique [...] 03/23/2023 9:37 AM CDT * Luis Daniel Hanna, TEJINDER - 03/22/2023 11:07 AM CDT Daily Progress Note Division of Hospital Medicine Name: Rene Hyatt : 1980 Today's Date: March 22, 2023 Age: 42 y.o. male Admission: 03/06/2023 Bed: [id number] LOS: 16 days Subjective Chief complaint: Perineal [...] bleeding -CTM Hgb Diabetic foot ulcer (CMS/HCC) ([facility]) Assessment & Plan Wound to planter 1st metatarsal head. S/p debridement with podiatry 03/07, significant depth but negative probe to bone. 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 * Luis Daniel Hanna NP - 03/21/2023 11:32 AM CDT Daily Progress Note Division of Hospital Medicine Name: Rene Hyatt : 1980 Today's Date: March 21, 2023 Age: 42 y.o. male Admission: 03/06/2023 Bed: [id number] LOS: 15 days Subjective Chief complaint: Perineal [...] vital signs. Lines, Drains, Airways Peripheral IV 10/12/23 22 G Left Antecubital (Active) Closed/Suction/Open Drain [...] - ambulatory, remove min - leukocytosis resolve 10/14 AM Class 3 obesity (HCC) Assessment & [...] bleeding -CTM Hgb Diabetic foot ulcer (CMS/HCC) ([facility]) Assessment & Plan Wound to planter 1st metatarsal head. S/p debridement with podiatry 03/07, significant depth but negative probe to bone. L foot XR with no OM - continue daily dressing changes - WBAT in heel strike shoe per PT - follow up in wound center at discharge - diabetic shoes with custom offloading inserts for correction sheogear - Heel strike shoe is causing [...] with PCP T1DM (type 1 diabetes mellitus) ([facility]) Assessment & Plan Endocrinology following [...] 27 minutes which was spent performing a pnci-rp-xxts encounter and personally completing the provider-level activities [...] Min today, pending placement. * Luis Daniel Hanna NP - 03/20/2023 11:33 AM CDT Daily Progress Note Division of Hospital Medicine Name: Rene Hyatt : 1980 Today's Date: March 20, 2023 Age: 42 y.o. male Admission: 03/06/2023 Bed: [id number] LOS: 14 days Subjective Chief complaint: Perineal [...] of urinal in bed Class 3 obesity ([facility]) Assessment & Plan Complicates all [...] bleeding -CTM Hgb Diabetic foot ulcer (CMS/HCC) ([facility]) Assessment & Plan Wound to planter 1st metatarsal head. S/p debridement with podiatry 03/07, significant depth but negative probe to bone. L foot XR with no OM - continue daily dressing changes - WBAT in heel strike shoe per PT - follow up in wound center at discharge - diabetic shoes with custom offloading inserts for correction sheogear - Heel strike shoe is causing [...] with PCP T1DM (type 1 diabetes mellitus) ([facility]) Assessment & Plan Endocrinology following [...] 33 minutes which was spent performing a vqef-kd-asxm encounter and personally completing the provider-level activities documented in the note. This includes time spent prior to the visit and after the visit in direct care of the patient. This time does not include time spent in any separately reportable services. Luis Daniel Hanna NP Cosigned by Evy Chong MD at 03/21/2023 10:32 AM CDT Associated attestation - Evy Chong MD - 03/21/2023 10:32 AM CDT I [...] Age: 42 y.o. male Admission: 03/06/2023 Bed: [id number] LOS: 13 days Subjective Chief complaint: Perineal [...] (03/15-) > Plan for 14d (End date 10/21) > Maytransition to Augmentin 875/125 BID and [...] of urinal in bed Class 3 obesity ([facility]) Assessment & Plan Complicates all [...] of bleeding -CTM Hgb Diabetic foot ulcer ([facility]/HCC) ([facility]) Assessment & Plan Wound to planter 1st metatarsal head. S/p debridement with podiatry 03/07, significant depth but negative probe to bone. L foot XR with no OM - continue daily dressing changes - WBAT in heel strike shoe per PT - follow up in wound center at discharge - diabetic shoes with custom offloading inserts for correction sheogear - Heel strike shoe is causing [...] with PCP T1DM (type 1 diabetes mellitus) ([facility]) Assessment & Plan Endocrinology following [...] 33 minutes which was spent performing a hbbx-lp-xrwb encounter and personally completing the provider-level activities [...] treatment team and contact the PT or EXPERIMENTAL PSYCHOLOGIST currently assigned to this patient. If a physical therapy clinician is not assigned to this patient, please call [phone]. 03/19/23 4325 PT Last Visit Session Type Treatment PT [...] and improve ROM * Luis Daniel Hanna TILE FINISHER - 03/18/2023 1:03 PM CDT Daily Progress Note Division of Hospital Medicine Name: Rene Hyatt : 1980 Today's Date: March 18, 2023 Age: 42 y.o. male Admission: 03/06/2023 Bed: [id number] LOS: 12 days Subjective Chief complaint: Perineal abscess Interval History Patient is alert and awake on eval this AM. He has no specific complaint or question. Chair has been delivered, backhaul driver assisting with acquisition of boot. Objective Scheduled [...] of urinal in bed Class 3 obesity ([facility]) Assessment & Plan Complicates all [...] bleeding -CTM Hgb Diabetic foot ulcer (CMS/HCC) ([facility]) Assessment & Plan Wound to planter 1st metatarsal head. S/p debridement with podiatry 03/07, significant depth but negative probe to bone. L foot XR with no OM - continue daily dressing changes - WBAT in heel strike shoe per PT - follow up in wound center at discharge - diabetic shoes with custom offloading inserts for correction sheogear - Heel strike shoe is causing [...] with PCP T1DM (type 1 diabetes mellitus) ([facility]) Assessment & Plan Endocrinology following [...] Age: 42 y.o. male Admission: 03/06/2023 Bed: [id number] LOS: 11 days Subjective Chief complaint: Perineal [...] bleeding -CTM Hgb Diabetic foot ulcer (CMS/HCC) ([facility]) Assessment & Plan Wound to planter 1st metatarsal head. S/p debridement with podiatry 03/07, significant depth but negative probe to bone. 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 - plan for vit d 2k daily after 50k loading phase - f/u with PCP T1DM (type 1 diabetes mellitus) ([facility]) Assessment & Plan Endocrinology following [...] treatment team and contact the PT or EXPERIMENTAL PSYCHOLOGIST currently assigned to this patient. If a physical therapy clinician is not assigned to this patient, please call [phone]. 03/17/23 0907 PT Last Visit Session Type [...] and improve ROM * Luis Daniel Hanna, TILE FINISHER - 03/16/2023 1:10 PM CDT Daily Progress Note Division of Hospital Medicine Name: Rene Hyatt : 1980 Today's Date: March 16, 2023 Age: 42 y.o. male Admission: 03/06/2023 Bed: [id number] LOS: 10 days Subjective Chief complaint: Perineal [...] Unasyn (03/09-), Micafungin 100 mg IV (03/15-) - Urology will remove drain when patient [...] of bleeding -CTM Hgb Diabetic foot ulcer ([facility]/HCC) ([facility]) Assessment & Plan Wound to planter 1st metatarsal head. S/p debridement with podiatry 03/07, significant depth but negative probe to bone. L foot XR with no OM - continue daily dressing changes - WBAT in heel strike shoe per PT - follow up in wound center at discharge - diabetic shoes with custom offloading inserts for correction sheogear Vitamin D deficiency Assessment & Plan Undetectable Vit D Level - continue vit d 50k international units twice weekly and calcium supplementation for x3 months. 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 He was [...] with any questions or concerns. Cosigned by Deisree Velasco MD at 03/16/2023 4:41 PM CDT [...] Age: 42 y.o. male Admission: 03/06/2023 Bed: [id number] LOS: 9 days Subjective Chief complaint: Perineal [...] daily (03/15-) Diabetes mellitus, new onset (CMS/HCC) ([facility]) Assessment & Plan Endocrinology following and currently on basal bolus regimen - cont lantus 20, lispro 10 per endocrinology recs - continue atorvastatin 20 mg daily - patient seen by DM educator Anemia Assessment & Plan Hgb 11.2 and BL 10-11. No signs of bleeding -CTM Hgb Diabetic foot ulcer (CMS/HCC) ([facility]) Assessment & Plan Woun d to planter 1st metatarsal head. S/p debridement with podiatry 03/07, significant depth but negative probe to bone. L foot XR with no OM - continue daily dressing changes - WBAT in heel strike shoe per PT - follow up in wound center at discharge - diabetic shoes with custom offloading inserts for correction sheogear Vitamin D deficiency Assessment & Plan [...] . Discussed management of candidal infection with ID. ELLA Ortega Cosigned by Neno Lei MD at 03/15/2023 2:50 PM CDT Associated attestation - Neno Lei MD - 03/15/2023 2:50 PM CDT I have seen and examined the patient on 03/15/23. I agree with the findings and plan of care. * Rona Reid OT - 03/14/2023 3:04 PM CDT Occupational [...] None Prior Function Prior Function Level of Cobb: Independent with ADLs, Independent functional transfers, Independent [...] name and address after me: Marcos Mcpherson [address] [place] [address] Without looking at the clock, tell me [...] not assigned to this patient, please call [phone]. * Luis Alfredo Donaldson MD - 03/14/2023 [...] Age: 42 y.o. male Admission: 03/06/2023 Bed: [id number] LOS: 8 days Subjective Chief complaint: Perineal [...] 50,000 Units, oral, Once per day on Thu Inna insulin glargine, 20 Units, subcutaneous, Nightly [...] left wrist fracture. Electronically signed by: Juan eJter MD I have independently reviewed and interpreted labs. WBC 9.7 Assessment/Plan * Scrotal abscess Assessment & Plan Presented to [facility] ED with scrotal pain and swelling concerning [...] continue Unasyn Diabetes mellitus, new onset (CMS/HCC) (HCC) Assessment & Plan Endocrinology following and currently on basal bolus regimen - cont lantus 20, lispro 10 per endocrinology recs - continue atorvastatin 20 mg daily - patient seen by DM educator Anemia Assessment & Plan Hgb 11.2 and BL 10-11. No signs of bleeding -CTM Hgb Diabetic foot ulcer (CMS/HCC) ([facility]) Assessment & Plan S/p debridement [...] the findings and plan of care. 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 male Admission: 03/06/2023 Bed: [id number] LOS: 7 days Subjective Chief complaint: Perineal [...] deanne chians and inguinal regions. S/p OR 9. with urology and ACCS for I&D of [...] continue Unasyn Diabetes mellitus, new onset (CMS/HCC) ([facility]) Assessment & Plan Endocrinology following and currently on basal bolus regimen - cont lantus 20, lispro 6 per endocrinology recs - continue atorvastatin 20 mg daily - patient seen by DM educator Anemia Assessment & Plan Hgb 11.2 and BL 10-11. No signs of bleeding -CTM Hgb Diabetic foot ulcer (CMS/HCC) ([facility]) Assessment & Plan S/p debridement [...] Vitals(24hr Range): Vitals: 03/12/23 1711 03/12/23 1811 03/12/23 2040 03/13/23 0526 BP: 152/72 153/74 122/58 138/65 BP Location: [...] Age: 42 y.o. male Admission: 03/06/2023 Bed: [id number] LOS: 6 days Subjective Chief complaint: Perineal [...] continue Unasyn Diabetes mellitus, new onset (CMS/HCC) (HCC) Assessment & Plan Endocrinology following and currently on basal bolus regimen - cont lantus 20, lispro 6 per endocrinology recs - continue atorvastatin 20 mg daily - patient seen by DM educator Anemia Assessment & Plan Hgb 11.2 and BL 10-11. No signs of bleeding -CTM Hgb Diabetic foot ulcer (CMS/HCC) ([facility]) Assessment & Plan S/p debridement [...] Carbohydrate PT/OT Dispo Rec : PT Recommendation/Plan: Fpc Facility / Supplementary Attestation The total encounter time on this service date was 45 minutes which was spent performing a cfnn-rv-ewgv encounter and personally completing the provider-level activities [...] Age: 42 y.o. male Admission: 03/06/2023 Bed: [place] [id number] LOS: 5 days Subjective Chief complaint: Scrotal [...] Scrotal abscess Assessment & Plan Presented to [facility] ED with scrotal pain and swelling concerning [...] following, plan for OR tomorrow, NPO at [place] - wound care recs per urology Diabetes mellitus, new onset (CMS/HCC) ([facility]) Assessment & Plan Endocrinology following and currently on basal bolus regimen - cont lantus 20, lispro 6 per endocrinology recs - start atorva 20 - patient seen by DM educator Anemia Assessment & Plan Hgb 11.2 and BL 10-11. No signs of bleeding -CTM Hgb Diabetic foot ulcer (CMS/HCC) ([facility]) Assessment & Plan S/p debridement [...] Diet PT/OT Dispo Rec : PT Recommendation/Plan: Fpc Facility / Supplementary Attestation The total encounter time on this service date was 45 minutes which was spent performing a hjgf-hd-hfxf encounter and personally completing the provider-level activities [...] 03/11/2023 7:45 AM CDT Urology Progress Note Dollar,Rene : 1980 Subjective Interval History: Transferred to [...] 42 y.o. male Admit Date: 03/06/2023 Bed: [id number] LOS: 4 days Subjective Rene Hyatt is a 42 y.o. male with chief complaint of scrotal abscess. HPI Mr. 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 He was started on clindamycin, cefe/vanc and transferred to [facility] on 03/06for urology evaluation. On presentation, he [...] sent. He was on martha, vanc at [facility]. His culture results are as follows: BCx 03/06 with NGTD Scrotal Abscess cx 03/06: abundant strep anginosus, mixed organisms Scrotal Tissue cx 03/06: moderate strep anginosus, mixed organisms Scrotal Abscess cx /: abundant GPCs Scrotal tissue cx 03/10: moderate [...] on File Prior to Encounter Medication Sig temuofzdyzpsx-bovmfbi-lkvlxxnb (EXCEDRIN MIGRAINE) 250-250-65 mg per tablet Take [...] found. Assessment/Plan Diabetes mellitus, new onset (CMS/HCC) ([facility]) Assessment & Plan Endocrinology following and currently on basal bolus regimen -cont lantus 20, lispro 6 per endocrinology recs -start atorva 20 -tobacco prevention health educator consulted * Scrotal abscess Assessment & Plan [...] bleeding -CTM Hgb Diabetic foot ulcer (CMS/HCC) ([facility]) Assessment & Plan S/p debridement [...] (Medical cancel: in the OR) * Marcos Browne NP - 03/10/2023 7:32 AM CDTAssociated Order(s): Critical Care Post-Procedure Diagnose(s): Scrotal abscess Surgical ICU Daily Progress Team: [facility] 2 AM Subjective Patient is a 42 [...] consistent carb Bowel regimen: Doc/Senna #Nausea/vomiting -noted 10/2 am, resolved as of 03/10 -PRN zofran IV 1st line -PRN compazine IV 2nd line ENDO: #Diabetes POA, new diagnosis c/b DKA -tobacco prevention health educator consulted -endocrine diabetes consulted -SSI, mealtime lispo [...] plan with the patient's team and other medical/workday financials consultant staff. This time was in addition to and separate from care provided by other practitioners on this day of service. Cosigned by Ursula Ferro MD at 03/10/2023 5:16 PM CDT * Matheus Frisa PA - 03/09/2023 8:22 PM CDTAssociated Order(s): [...] Admission Medication Sig Dispense Refill Last Dose woxyzilkgbgtx-zttwiie-dxknmdcn (EXCEDRIN MIGRAINE) 250-250-65 mg per tablet Take [...] Hemodynamics: MAP (mmHg): [86-99] 97 Intake/Output: Date 03/08/23 190 - 03/09/23 0659 03/09/23699 - 03/10/23 0659 Shift 7009-3166 24 Hour Total 8476-0791 7775-8297 24 Hour Total INTAKE P.O. 480 960 I.V.(mL/kg) 222(1.4) IV Piggyback 100 1004 633 633 Shift Total(mL/kg) 580(3.6) 2186(13.5) 633(3.9) 633(3.9) OUTPUT Urine(mL/kg/hr) 1025 1875 1325(0.7) 1325 Emesis/NG output 100 100 Drains 400 400 Stool 250 250 Shift Total(mL/kg) 1275(7.9) 2125(13.1) 1725(10.7) 100(0.6) 1825(11.3) NET -695 61 -1092 -100 -1192 Weight (kg) 161.7 161.7 161.7 [...] -BMI 39. 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 03/07:Duplex imaging of the bilateral lower extremity tuolumne arteries reveals patent vessels with no flow limiting lesions identified Culture Results: No data to display Lab Results Component Value Date MICROBIOLOGY (.) 03/06/2023 Preliminary Report: Moderate Streptococcus anginosus For susceptibility results, refer to accession number [id number] on the scrotum tissue culture from 03/06/2023 Few Mixed aerobic and anaerobic microorganisms MICROBIOLOGY (.) 03/06/2023 Preliminary Report: Moderate Streptococcus anginosus Few Mixed aerobic and anaerobic microorganisms MICROBIOLOGY (.) 03/06/2023 Preliminary Report: Abundant Streptococcus anginosus For susceptibility results, refer to accession number [id number] on the scrotum tissue culture from 03/06/2023 [...] plan with the patient's team and other medical/workday financials consultant staff. This time was in addition to and separate from care provided by other practitioners on this day of service. * Marcos Browne NP - 03/09/2023 7:52 AM CDTAssociated Order(s): Critical Care Post-Procedure Diagnose(s): Scrotal abscess Surgical ICU Daily Progress Team: [facility] 2 AM Subjective Patient is a 42 [...] and possible partial wound closure. NPO at [place], T+S tonight -Wound care consulted for assistance [...] consistent carb Bowel regimen: Doc/Senna #Nausea/vomiting -noted 03/09 am -PRN zofran IV 1st line -PRN compazine IV 2nd line ENDO: #Diabetes POA, new diagnosis c/b DKA -tobacco prevention health educator consulted -endocrine diabetes consulted -SSI, mealtime lispo [...] plan with the patient's team and other medical/workday financials consultant staff. This time was in addition to and separate from care provided by other practitioners on this day of service. Cosigned by Ursula Ferro MD at 03/10/2023 6:04 AM CDT * James Lai MD - 03/09/2023 6:28 AM CDT [...] tablet 1,000 mg, 1,000 mg, oral, Q6H [facility], Matheus Frias PA, 1,000 mg at 03/09/23522 [...] 50,000 Units, 50,000 Units, oral, Weekly, Matheus Frias PA, 50,000 Units at 03/09/23 0008 insulin lispro (HumaLOG, ADMELOG) 100 unit/mL injection 0-10 Units, 0-10 Units, subcutaneous, Q4H [facility], Mckayla Iyer NP, 2 Units at 03/09/23 0333 insulin NPH (HumuLIN N, NovoLIN N) 100 unit/mL injection 8 Units, 8 Units, subcutaneous, Q8H, Mckayla Iyer NP, 8 Units at 03/09/23 0014 meropenem (MERREM) 2,000 mg/120 mL in sodium chloride 0.9% (premix) 2,000 mg, 2,000 mg, intravenous, Q8H [facility], Matheus Frias PA, Stopped at 03/09/23 0555 [...] PA, Last Rate: 261.3 mL/hr at 03/09/23 05, 2,250 mg at 03/09/23 0517 24hr Min/Max: [...] Daikins or Vashe - Anticipate transfer to [facility] - Appreciate excellent ICU care James Lai MD Urology PGY-1 03/09/23 6:28 AM Cosigned by Hans Ulrich MD at 03/09/2023 11:48 AM CDT Associated attestation - Hans Ulrich MD - 03/09/2023 11:48 AM CDT I [...] Admission Medication Sig Dispense Refill Last Dose leqfzkyejwvxp-cfdortl-hqxzlfas (EXCEDRIN MIGRAINE) 250-250-65 mg per tablet Take [...] (mmHg): [80-104] 91 Intake/Output: Date 03/07/231899 - 03/08/23 0659 03/08/23 07 - 03/09/23 0659 Shift 4032-7813 24 Hour Total 1118-0707 9463-5320 24 Hour Total INTAKE P.O. 1000 1000 [...] -oxycodone 5 mg prn Overall CAM-ICU: Negative (03/08/23814) CV: -Stable PULM: Pulmonary Support: O2 Therapy: None (Room air) O2 Del Method: Nasal cannula O2 Flow Rate (L/min): 1 L/min GI: Diet: Sips with meds Bowel regimen:doc/senna 03/08: Dignicare placed #Hypoalbuminemia: POA #Obesity: POA -BMI 39. 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 Few Mixed microorganisms. MICROBIOLOGY (.) 03/06/2023 Preliminary Report: Moderate Streptococcus anginosus For susceptibility results, refer to accession number [id number] on the scrotum tissue culture from 03/06/2023 [...] plan with the patient's team and other medical/workday financials consultant staff. 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 Pt is independent at [...] treatment team and contact the PT or EXPERIMENTAL PSYCHOLOGIST currently assigned to this patient. If a physical therapy clinician is not assigned to this patient, please call [phone]. * Mckayla Iyer TILE FINISHER - 03/08/2023 8:55 AM CDTAssociated Order(s): Critical Care Post-Procedure Diagnose(s): Scrotal abscess Surgical ICU Daily Progress Team: [facility] 2 AM Subjective Patient is a 42 y.o. male admitted on 03/06/2023 10:24 AM with chief complaint of DKA. Interval History: -Transitioned off insulin gtt to 8u NPH W6wdfzo and SSI -once taking in more nutrition [...] Component Value Date HGBA1C 13.3 (H) 03/06/2023 -tobacco prevention health educator consulted -endocrine diabetes consulted -transition off insulin gtt this AM, 8u NPH H3wuovl with SSI -once consistently taking in PO [...] Goals of care: FULL CODE Mckayla Iyer [facility] Critical Care Performed by: Mckayla Iyer NP [...] plan with the patient's team and other medical/workday financials consultant staff. 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 OBJECTIVE: Current Facility-Administered Medications: acetaminophen (TYLENOL) tablet 1,000 mg, 1,000 mg, oral, Q6H ASTON, Matheus Frias PA, 1,000 mg at 03/08/23 0621 dextrose [...] Matheus Frias PA, 1 tablet at 03/08/23 08 vancomycin (VANCOCIN) 2,250 mg in sodium chloride 0.9% 500 mL IVPB, 15 mg/kg, intravenous, Q12H, Matheus Frias PA, Last Rate: 261.3 mL/hr at 03/08/23 07, 2,250 mg at 03/08/23 07 24hr Min/Max: Temp Min: 36.7 ??C (98.1 [...] Villafuerte MD - 03/08/2023 5:47 AM CDT [facility] Acute Care Emergency Surgery Consult Progress Note [...] 1 tablet, 1 tablet, oral, Daily, Matheus Frias, ELLA, 1 tablet at 03/07/23 1122 vancomycin (VANCOCIN) [...] the OR on 03/07. Please call the [facility] Inpatient Consult Phone with any questions or concerns regarding this patient. Bijan Villafuerte MD Resident Physician General Surgery ACCS Inpatient Consult ACCS ED Consult [facility] Outpatient Clinic - option 1 Cosigned by [...] and Critical Care Surgery Department of Surgery [facility] * Matheus Frias, ELLA - 03/07/2023 9:04 PM CDTAssociated Order(s): Critical Care Post-Procedure Diagnose(s): Scrotal abscess; Perineal abscess Images from the original note were not included. ICU History and Physical Team: Other PM Subjective Patient is a 42 y.o. male presented to the ICU with chief complaint of necrotizing skin infection. Events: -3g Ca -Vanc Random 0630 -DM T1 labs reordered 629 -d/c dilaudid [...] Admission Medication Sig Dispense Refill Last Dose mdqebqlldnbxr-mlikqjp-xfzvdrbi (EXCEDRIN MIGRAINE) 250-250-65 mg per tablet Take [...] (mmHg): [66-119] 119 Intake/Output: Date 03/06/231899 - 03/07/23 0659 03/07/23699 - 03/08/2359 Shift 2490-9933 24 Hour Total 2948-4086 0016-8125 24 Hour Total INTAKE P.O. 990 990 I.V.(mL/kg) 75.7(0.5) 1675.7(10.4) 907(5.6) 907(5.6) IV Piggyback 1892 2032 1213 1213 Shift Total(mL/kg) 2958.7(18.3) 4698.7(29.1) 2120(13.1) [...] -BMI 39. 7 -consult nutrition and DM change management consultant ENDO: #Hyperglycemia:POA #DKA: POA -AGMA on admission, [...] diabetic shoes with custom offloading inserts for correction sheogear 03/07:Duplex imaging of the bilateral lower extremity tuolumne arteries reveals patent vessels with no flow [...] plan with the patient's team and other medical/workday financials consultant staff. This time was in addition [...] Rice MD - 03/07/2023 9:02 PM CDT [facility] Acute Care Emergency Surgery Consult Progress Note [...] ASTON, Matheus Frias PA, 1,000 mg at 03/07/231820 dextrose (D10W) 10% bolus 250 mL, 250 [...] Frias PA, Last Rate: 261.3 mL/hr at 03/07/231818, 2,250 mg at 03/07/231818 Is&Os: I/O last 2 completed shifts: In: [...] or lesions Labs/Imaging: Recent Labs Lab Units 03/06/23211403/06/23 0535 WBC K/cumm 21.3* 17.3* HEMOGLOBIN g/dL 11.6* 12.3* HEMATOCRIT % 35.8* 36.7* PLATELETS K/cumm 348 332 Recent Labs Lab Units 03/07/23202803/07/23 1908 03/07/23 1708 03/07/23 1649 03/07/23 1355 [...] Outpatient Clinic - option 1 Cosigned by LealDarci MD at 03/20/2023 5:01 PM CDT Associated [...] and Critical Care Surgery Department of Surgery [facility] * Riya Madison, PT - 03/07/2023 10:15 [...] 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 OBJECTIVE: Current Facility-Administered Medications: acetaminophen (TYLENOL) tablet 1,000 mg, 1,000 mg, oral, Q6H ASTON, Matheus Frias, PA, 1,000 mg at 03/07/23 0607 clindamycin (CLEOCIN) 900 mg/50 mL in dextrose 5% (premix) 900 mg, 900 mg, intravenous, Q8H ASTON, Matheus Frias PA, Stopped at 03/07/23 0609 dextrose gel [...] Units, intravenous, Q1H PRN, 4 Units at 03/06/23 2156 AND POCT glucose, , , q1h AND [...] as documented in the resident's/fellow's note.. * Mckyala Iyer NP - 03/07/2023 7:06 AM CDTAssociated Order(s): Critical Care Post-Procedure Diagnose(s): Scrotal abscess Surgical ICU Daily Progress Team: [facility] 2 AM Subjective Patient is a 42 [...] continue gtt post op until gap closed -tobacco prevention health educator and endocrine diabetes consulted -send c-peptide and [...] Component Value Date HGBA1C 13.3 (H) 03/06/2023 -tobacco prevention health educator consulted -endocrine diabetes consulted RENAL: Cr Lab [...] Goals of care: FULL CODE Mckayla Iyer [facility] Critical Care Performed by: Mckayla Iyer NP [...] plan with the ICU team and other medical/workday financials consultant staff, making frequent assessments and decisions [...] 42 y.o. male who presented to the [facility] ED with perineal/scrotal pain and swelling and a foot ulcer. CT there showed a perineal fluid collection/abscess with gas in the collection and he was transferred to [place] for surgical care. Prior to coming to [...] (premix) 900 mg 900 mg intravenous Q8H Anil Almanza MD Stopped at 03/06/23 1322 vancomycin (VANCOCIN) 2,250 mg in sodium chloride 0.9% 500 mL IVPB 15 mg/kg intravenous Q12H Anil Birmingham MD Current Outpatient Medications Medication Sig Dispense Refill vzqbbaitlmcyk-sqwrkem-wrphnfgv (EXCEDRIN MIGRAINE) 250-250-65 mg per tablet Take [...] 125/72 Pulse: 97 93 89 89 Resp: Temp: 36.9 ??C (98.5 ??F) 37 ??C [...] Wander García M.D. RB: SALLY Report ID: [id number] Reading Location: [id number] Assessment and Plan: Rene Hyatt is a [...] hesitate to contact us by paging the director of accreditation urology resident. Jamari Whitfield MD 03/06/23 Urology [...] Admission Medication Sig Dispense Refill Last Dose wfcdqkkogtolq-sovwckx-xroyrida (EXCEDRIN MIGRAINE) 250-250-65 mg per tablet Take [...] Admitted) 03/06/23 07 - 03/07/23 0659 Shift 0742-6136 24 Hour Total 8012-5216 8016-7280 24 Hour Total INTAKE I.V. 1600(10.3) 1600(10.3) [...] See wound note and podiatry c/s Access: [facility] Lab/Radiology/Diagnostic Review: Laboratory review: Lab results in [...] -BMI 39. 7 -consult nutrition and DM change management consultant ENDO: #Hyperglycemia:POA #DKA: POA -AGMA on admission, [...] plan with the ICU team and other medical/workday financials consultant staff, making frequent assessments and decisions [...] given his presentation, who was transferred from [facility] for scrotal swelling, scrotal abscess and possible [...] BUN SERUM mg/dL 17 CREATININE mg/dL 0.83 TMW-DLO-LAMKILU mL/min/1.73 m2 >90 CALCIUM mg/dL 8.5 Recent [...] Carbohydrate Diet effective now Question Answer Comment ([facility]) Diet type Restricted Diabetic: Consistent Carbohydrate 03/12/23 [...] Registered Dietitian. Additional resources available from the [place] [employer] can be found at www.diabetes.org/nutrition [...] Registered Dietitian. Additional resources available from the [place] [employer] can be found at www.diabetes.org/nutrition Marina Royal MS, JR, [facility], LD Cell * Marina Royal RD - 03/16/2023 2:22 PM CDT NUTRITION ASSESSMENT Nutrition Status: Patient appears adequately nourished at this time. REASON FOR ASSESSMENT: Consult/Referral - Diet Education Encounter Date: 03/16/23 2:22 PM Admission Date: 03/06/2023 LOS: 10 days HPI: Pt is a 42-year-old male previously healthy, probably diabetic given his presentation, who was transferred from [facility] for scrotal swelling, scrotal abscess and possible [...] CREATININE mg/dL 0.83 < > 0.68* 0.56* RZX-LCZ-[id number] mL/min/1.73 m2 >90 < > >90 >90 [...] Carbohydrate Diet effective now Question Answer Comment ([facility]) Diet type Restricted Diabetic: Consistent Carbohydrate 03/12/23 [...] Registered Dietitian. Additional resources available from the [place] [employer] can be found at www.diabetes.org/nutrition [...] Registered Dietitian. Additional resources available from the [place] [employer] can be found at www.diabetes.org/nutrition Marina Royal MS, JR, [facility], LD Cell * Valerie Carrion RN - [...] CWOCN Wound Ostomy Team General W/O number: [phone] * Marina Royal RD - 03/11/2023 10:16 [...] contact information provided. Marina Royal MS, RD, [facility], LD Cell * Valerie Carrion RN - [...] CWOCN Wound Ostomy Team General W/O number: [phone] * Kim Byrne RD - 03/09/2023 9:31 AM CDTAssociated Order(s): IP CONSULT TO NUTRITION SERVICES NUTRITION ASSESSMENT Nutrition Status: Patient appears adequately nourished at this time. REASON FOR ASSESSMENT: Consult/Referral - Diet Education Encounter Date: 03/09/23 9:32 AM Admission Date: 03/06/2023 LOS: 3 days HPI: Pt is a 42-year-old male previously healthy, probably diabetic given his presentation, who was transferred from [facility] for scrotal swelling, scrotal abscess and possible [...] Med's: ondansetron oxyCODONE Recent Labs Lab Units 03/08/23205803/07/23 2027 03/07/23 1649 03/07/23 1220 SODIUM mmol/L 138 139 See Comment 139 POTASSIUM PLASMA mmol/L 4.0 3.6 See Comment 3.3 CHLORIDE mmol/L 103 106 See Comment 104 CO2 mmol/L 26 24 See Comment 24 BUN SERUM mg/dL 10 14 See Comment 13 CREATININE mg/dL 0.60* 0.73* See Comment 0.77* LLJ-VQG-RECRZIX mL/min/1.73 m2 >90 >90 See Comment >90 [...] tray Diet effective now Question Answer Comment ([facility]) Diet type Restricted Diabetic: Consistent Carbohydrate Other Services: No juice on tray 03/08/23 0854 Allergies: Reviewed. IMPRESSION: Saw pt for consult regarding diabetes education. Pt reports a good appetite EXPERIMENTAL PSYCHOLOGIST. Appete has been down today and pt [...] Registered Dietitian. Additional resources available from the [place] [employer] can be found at www.diabetes.org/nutrition Kim Byrne RD * Subha Butler MD - 03/09/2023 9:15 AM CDTAssociated Order(s): CONSULT TO GENERAL INFECTIOUS DISEASE Infectious Disease Initial Consult Note Infectious Disease Team: General 4 Contact Information: Please see [facility] Treatment Team listing for up-to-date contact information. [...] worsened over time and presented toED at [facility]. In addition he also reported non healing [...] evaluate proximity to rectum and partial closure. Jose brunson was also consulted for L foot ulcer and had bedside debridement, deepest level subcutaneous tissue not probing to bone and no purulence. He reports ongoing nausea with occasional vomiting, pain is controlled. No past medical history on file. No past surgical history on file. HOME MEDICATIONS : ocaazcuhfglvt-omkpuhd-cogfkhgq (EXCEDRIN MIGRAINE) 250-250-65 mg per tablet aspirin 325 mg tablet doxycycline 100 mg capsule traMADoL (ULTRAM) 50 mg tablet Current Facility-Administered Medications Ordered in Epic Medication Dose Route Frequency Provider Last Rate Last Admin acetaminophen (TYLENOL) tablet 1,000 mg 1,000 mg oral Q6H ASTON Matheus Frias PA 1,000 mg at 03/09/23 [...] tube BID Matheus Frias PA 100 mgat 03/06/23 2117 enoxaparin (LOVENOX) syringe 40 mg 40 mg subcutaneous Q12H Javier Khanna NP 40 mg at 03/09/23 0840 ergocalciferol (VITAMIN D) capsule 50,000 Units 50,000 Units oral Weekly Matheus Frias PA 50,000 Units at 03/09/23 0008 insulin lispro (HumaLOG, ADMELOG) 100 unit/mL injection 0-10 Units 0-10 Units subcutaneous Q4H Mckayla Montilla NP 2 Units at 03/09/23 0739 insulin lispro (HumaLOG, ADMELOG) 100 unit/mL injection 6 Units 6 Units subcutaneous TID with Javier Hunter NP insulin NPH (HumuLIN N, NovoLIN N) 100 unit/mL injection 8 Units 8 Units subcutaneous Q8H Mckayla Iyer NP 8 Units at 03/09/23 0840 meropenem (MERREM) 2,000 mg/120 mL in sodium chloride 0.9% (premix) 2,000 mg 2,000 mg intravenous Q8H ASTON Matheus Frias PA Stopped at 03/09/23 0555 [...] PA Stopped at 03/09/23 0717 No current [facility]-ordered outpatient medications on file. Anti-infectives (From admission, onward) Start Dose/Rate Route Frequency Ordered Stop 03/06/23 1915 meropenem (MERREM) 2,000 mg/120 mL in sodium [...] Height: I/O last 2 completed shifts: In: 2186 [P.O.:960; I.V.:222; IV Piggyback:1004] Out: 2125 [Urine:1875; Stool:250] Physical Exam: GENERAL: Awake, not [...] For susceptibility results, refer to accession number [id number] on the scrotum tissue culture from 03/06/2023 MICROBIOLOGY (.) 03/06/2023 Preliminary Report: Moderate Streptococcus anginosus Susceptibility testing results to follow. Few Mixed microorganisms. MICROBIOLOGY (.) 03/06/2023 Preliminary Report: Moderate Streptococcus anginosus For susceptibility results, refer to accession number [id number] on the scrotum tissue culture from 03/06/2023 [...] (L)). Resulted in the Past 12 Months 03/08/23205803/07/23202603/07/23 1649 CREATININE 0.60* 0.73* See Comment Inflammatory Markers: Resulted in the Past 12 Months 03/06/23 0535 SEDRATE 103* CRP 272.2* Screening Results RPR:No results found for: LABRPR GC: No results found for: CTRACHOMATIS , NGONORRHOEAE Hepatitis Serologies: No results found for: HEPAIGG , HEPAIGM , HEPBSAG , HEPBSAB , HEPBCAB , HEPCAB Virologic Testing: HIV Screen:No results found for: [id number] CD4:No results found for: CD4ABS , CD4PCT Common Virologic Results: No results found for: FXZ5EFX , CD4ABS , CD4PCT , NUCLEOSRT , [...] ECGs available Confirmed by SALTY ROBLES M.D. ([id number]) on 03/09/2023 6:22:01 AM Echo: Imaging: No [...] PM CDTAssociated Order(s): IP CONSULT TO PODIATRY [facility] Physicians Podiatric Surgery Subjective: Patient is a [...] Measurement Value Units Measurement Value Units Rt CAFE MANAGER Dst PSV 93 cm/s Lt CAFE MANAGER Dst PSV 154 cm/s Rt Profunda Prx [...] Right Lower Left Lower - Findings: Performing Stamping Operator: Anca Alexis RVT ([place]). Right Common Femoral: [...] Duplex imaging of the bilateral lower extremity [place] arteries reveals patent vessels with no flow [...] mmHg Lt Brachial Pressure 110 mmHg Rt EXPERIMENTAL PSYCHOLOGIST Pressure 162 mmHg Lt EXPERIMENTAL PSYCHOLOGIST Pressure 158 mmHg Rt DPA Pressure 159 [...] Right - Left - - Findings: Performing Stamping Operator: Anca Alexis RVT ([place]). 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 Moody Saab DPM Voice recognition software Prive[employer] Direct was used to dictate/transcribe this document. Director Of Math variances may occur. Despite proofreading, typographical, grammatical and syntax errors may occur. * Toby Teresa MD - 03/07/2023 1:01 PM CDT Endocrinology & Diabetes Consult Note Patient: Rene Hyatt, 42 y.o. male (: 1980) [id number] ( ) LOS: 1 Consult Question: DKA [...] liquids Recent Labs Lab Units 03/07/23 2243 03/07/23202803/07/23202603/07/23 1908 03/07/23 1708 03/07/23 1649 03/07/23 1605 [...] , PTH , 25HYDROVITD , CPEPTIDE , NDV36BO , IA2AB Lab Results Component Value Date [...] (Diabetes Center Scheduling: ) - recommend asking ict educator to assess patient inpatient -- Toby Teresa [...] does not have insurance and resides in [place] - may need to establish medicine clinic here, where medications would be subsidized, consider Basal/Bolus ( potentially 70/30 Reli-on [employer] pens) and metformin. Social Work aware. 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 male who presented to the [facility] ED with perineal/scrotal pain and swelling and a foot ulcer. CT there showed a perineal fluid collection/abscess with gas in the collection and he was transferred to [place] for surgical care. Prior to coming to [...] (premix) 900 mg 900 mg intravenous Q8H Anil Almanza MD Stopped at 03/06/23 1322 vancomycin (VANCOCIN) 2,250 mg in sodium chloride 0.9% 500 mL IVPB 15 mg/kg intravenous Q12H Anil Birmingham MD Current Outpatient Medications Medication Sig Dispense Refill agsoyjprnrxdy-ewuiiak-dvhmecwi (EXCEDRIN MIGRAINE) 250-250-65 mg per tablet Take [...] 125/72 Pulse: 97 93 89 89 Resp: Temp: 36.9 ??C (98.5 ??F) 37 ??C [...] Wander García M.D. RB: SALLY Report ID: [id number] Reading Location: [id number] Assessment and Plan: Rene Hyatt is a [...] hesitate to contact us by paging the director of accreditation urology resident. Jamari Whitfield MD 03/06/23 Urology [...] from the original note were not included. [facility] Acute Care Surgery Consult Reason for Consult: soft tissue infection/abscess of the scrotum Requesting Provider: Carolee Daly MD Patient Name: Rene Hyatt : 1980 [...] follow. Staffed with Dr. Alexander Cloud at 1100. Hans Doyle MD Department of General Surgery [facility] in [facility] Subjective HPI: Rene Hyatt is a [...] prompting his presentation to the ED at [facility]. A CT abdomen/pelvis was obtained there which [...] hospital. The patient has been transferred to [facility] for possible intervention. Upon assessment of the patient, his tissue infection appears largely confined to his scrotum. Of note, the patient has not been previously diagnosed with diabetes until today. He has non-healing left foot wounds, some of which have been present for several years. A left foot x-ray performed at [facility] did not have evidence of osteomyelitis. History [...] Javier Owusu M.D. AG: JUSTINA Report ID: [id number] Reading Location: [id number] XR Chest 1 Vw Portable EXAM DESCRIPTION: [...] Wander García M.D. RB: SALLY Report ID: [id number] Reading Location: [place] [address] CT Abdomen Pelvis W Contrast EXAM DESCRIPTION: [...] Wander García M.D. RB: SALLY Report ID: [id number] Reading Location: [id number] Cosigned by Alexander Cloud MD at 03/09/2023 [...] site rotation Consults Made Dietitian Consults Recommended Heel Builder Discharge Recommendations Insulin Pen Humalog Kwik Pen (pkg of 5);Lantus Solostar Pre-filled Pen (pkg of 5) Non-Insulin Pen Trulicity Pen Pen [place] Ultra fine 5 mm Glucometer (Glucocard shine meter was provided.) Test Strips (glucocard shine strips) Lancets Lancets Blood Glucose Testing Regimen 4 times per day (premeals, at bedtime, and prn) Diabetes/Education Follow Up Primary Care Provider;Heel Builder;Outpatient Diabetes Education Additional Recommendations Home Health followup [...] site rotation Consults Made Dietitian Consults Recommended Heel Builder Discharge Recommendations Additional Recommendations Home Health followup [...] is ready to be see again. Jacques TILE FINISHER and Naveen TILE FINISHER aware. If patient is discharged prior to seeing tobacco prevention health educator, please have nurse provide diabetes education to [...] site rotation Consults Made Dietitian Consults Recommended Heel Builder Discharge Recommendations Insulin Pen Humalog Kwik Pen (pkg of 5);Lantus Solostar Pre-filled Pen (pkg of 5) Pen [place] Ultra fine 5 mm Glucometer (Provided a [...] site rotation Consults Made Dietitian Consults Recommended Heel Builder Discharge Recommendations Insulin Pen (TBD) Non-Insulin Pen (TBD) Blood Glucose Testing Regimen (TBD) Diabetes/Education Follow Up (TBD) Met with patient. Patient has not received his glucometer supplies yet. Patient's discharge date and medication regimen undetermined at this time. Per patient, he is going to OR tomorrow. school vocational educator will return for additional teaching on Thursday (03/12/2023). * Rigo Doyle RN - 03/11/2023 9:21 AM CDT 03/11/23 0920 Pre-Education Assessment Time In 09 Home Supplies Yes needs assistance (Currently, patient has no medical insurance.) Inpatient Recommendations RN to practice with patient Injections;Fingersticks RN to reinforce with patient Consistent carb diet;Carb counting;Insulin dose calculation;Insulin injection site rotation Consults Made Dietitian Consults Recommended Heel Builder Patient's discharge medication regimen undetermined at this [...] given his presentation, who was transferred from [facility] for scrotal swelling, scrotal abscess and possible [...] alert. Psychiatric: Mood and Affect: Mood normal. [facility] Medical Decision Making Amount and/or Complexity of Data Reviewed Labs: ordered. Risk Prescription drug management. Decision regarding hospitalization. Pt is a 42-year-old male previously healthy, probably diabetic given his presentation, who was transferred from 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 where he underwent a CT confirming diagnosis [...] ulcers. By: Anil Birmingham MD Time: 03/06 1153 Comment: Urology examined patient, assessment is that [...] the floor. By: Anil Birmingham MD Time: 03/06 1155 Comment: SOCIAL: patient's mother is paraplegic, patient is worried about her and does not have a cellphone. I called her and updated her on her son's situation, stating that he will require OR. She is worried and would like us to update her on any advancement that occurs, especially post-op. 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 First noted perineal discomfort progressed to scrotal swelling + pain over last two weeks. Presented to [facility] this morning with WBC 17.3 elevated CRP/ESR, glucose 300s (not diagnosed diabetic), CT concerning for scrotal abscess vs NSTI. Start on vanc/cefe/clinda and received 3L IVF prior to transfer. Here AOx3 c/o scrotal pain, also noted deep ulcers x2 to L foot which probe to bone (plain films obtained at [facility]). Will provide pain control, continue abx, discuss with surgery and urology, engage podiatry for inpatient foot wound care. By: Elisabeth Ferrara MD Time: 03/06 1270 Comment: Patient has been evaluated by both [...] RN - 03/06/2023 10:24 AM CDT Bed: [facility] Expected date: 03/06/23 Expected time: 7:56 AM Means of arrival: Ambulance Comments: Mary Rogers RN 03/06/23 1024 documented in this encounter Miscellaneous Notes * Plan of Care - Kateryna Martinez LCSW - 03/25/2023 5:01 PM CDT SW received call from hospital nursing supervisor ordnance truck installation, [employer] regarding pt. It was SW understanding, pt was d/c from 7900 today [...] and that his medical needs are met. DIPIKA has informed production supervisor off shift SW of pt's return and will collaborate with CCSW in the morning. CÉSAR Levi, MUCKER OPERATOR * Plan of Care - Clara Carrizales RN - 03/25/2023 2:57 PM CDT Goals: Clinical Goals for the Shift: monitor VS, assist in ambulation, wound care, maintain comfort and safety Summary: Problem: Health Behavior: Goal: Understanding of discharge needs will improve Outcome: Progressing Problem: Activity: Goal: Mobility will improve Outcome: Progressing * Plan of Care - Graham Salmeron, RN - 03/25/2023 12:07 PM CDT Per Medical Chart/Rounds/IDR: Patient is medically ready for discharge per primary team pending final evaluation by surgical team. Plan for discharge to home with home health services after meeting with surgical team on 03/25. ADD: 03/25/23 Plan & referrals made/in place: Current referrals include: HH SN with [facility] Home Health (P: [phone]) Support following discharge: Friends and [facility] Transportation: [employer] (P: [phone] Trip: [phone] Time: 3:00 PM on 03/25). Patient's neighbor Kemal will allow EMS crew into home. With permission from patient, CYNTHIA spoke to Kemal (P: [phone]) who states that he will be available to let the EMS crew into the home. CYNTHIA provided [employer] [facility] with contact information for Kemal. F/U [...] discharge planning as needed. Please see the [facility] Treatment Team for the patient's assigned Assembler Fishing Floats. * Plan of Care - Eric Wolf, RN - 03/25/2023 9:59 AM CDT Call placed to patient's phone. Interviewed patient via phone and discussed [facility] [employer] services. Confirmed homebound status and verified patient is currently not active with any other LE[employer]ERSHIP PROGRAM INTERNSH[employer]. Informed patient that staff will be calling [...] Hyatt, 42 y.o. male (: 1980) Room: [place] [address] ( ) LOS: 19 Rene Hyatt is [...] 25HYDROVITD <6 (L) 03/08/2023 CPEPTIDE 2.24 03/08/2023 [id number] 0.31 (H) 03/09/2023 Lab Results Component Value [...] Hodge NP Endocrinology, Metabolism, & Lipid Research [phone] Contact Info: New Consults: [phone]) General Endocrine (Non-Diabetes): [phone] (Check 'Treatment Team' assignment for Diabetes 1 vs 2 vs 3) Diabetes After-Hours & Weekends: Diabetes Fellow [phone] or [phone] * Plan of Care - Yancy Stephenson RN - 03/25/2023 5:27 AM CDT Problem: [...] of Care - Graham Salmeron RN - 03/24/2023 1:26 PM CDT Per Medical Chart/Rounds/IDR: Patient is medically ready for discharge per primary team. Plan for discharge to home with home health services 03/25. ADD: 03/25/23 Plan & referrals made/in place: Current referrals include: [facility] with [facility] Home Health (P: [phone]) Support following discharge: Friends and [facility] Transportation: [employer] (P: [phone] Trip: [phone] Time: 11:30 AM on 03/25). Patient's neighbor Kemal will allow EMS crew into home. With permission from patient, CYNTHIA spoke to Kemal (P: [phone]) who states that he will be available tomorrow to let the EMS crew into the home. CM provided [employer] [facility] with contact information for Kemal. F/U [...] discharge planning as needed. Please see the [facility] Treatment Team for the patient's assigned Assembler Fishing Floats. * Plan of Care - Tom Diane LCSW - 03/24/2023 12:47 PM CDT SW contacted to speak to this patient about [place] fuller brush worker services. SW provided with written information about the program and the closest state office near his home- in [place], [place]. Dipika also spoke briefly to the patient about [...] * Plan of Care - Eric Wolf, ARYAN - 03/24/2023 10:28 AM CDT [facility] Home Health consult received for SN/ Wound Care services. [facility] Home Care agency accepted patientwith projected start of care 03/27/2023 with completed referral and discharge. Graham MARIE, notified. * Plan of Care - Fannie Celaya - 03/24/2023 9:57 AM CDT CRC scheduled follow up appointment for patient with PCP. Information is on AVS & below: [facility]: [facility] Date of Appt: 04.01.2023 Time of Appt: 10:40 AM Provider: Bertram Celaya [facility] Community Counterintelligence Analyst [phone] * Consults, Subsequent - Mack Frazier MD PhD - 03/24/2023 9:43 AM CDT Endocrinology & Diabetes Progress Note Patient: Rene Hyatt, 42 y.o. male (: 1980) Room: [place] [address]/[id number] ( ) LOS: 18 Rene Hyatt is [...] 25HYDROVITD <6 (L) 03/08/2023 CPEPTIDE 2.24 03/08/2023 [id number] 0.31 (H) 03/09/2023 Lab Results Component Value [...] MD PhD Endocrinology, Metabolism, & Lipid Research [phone] Contact Info: New Consults: [phone]) General Endocrine (Non-Diabetes): [phone] (Check 'Treatment Team' assignment for Diabetes 1 vs 2 vs 3) Diabetes After-Hours & Weekends: Diabetes Fellow [phone] or [phone] * Plan of Care - Annamarie Giron [...] * Plan of Care - Eric Wolf, ARYAN - 03/23/2023 3:27 PM CDT [facility] is unable to staff patient without an established PCP. Anabel MARIE., notified. CYNTHIA to outsource for home health services. * Consults, Subsequent - Mack Frazier MD PhD - 03/23/2023 9:53 AM CDT Endocrinology & Diabetes Progress Note Patient: eRne Hyatt, 42 y.o. male (: 1980) Room: [place] [address] [address] ( ) LOS: 17 Rene Hyatt is [...] 25HYDROVITD <6 (L) 03/08/2023 CPEPTIDE 2.24 03/08/2023 [id number] 0.31 (H) 03/09/2023 Lab Results Component Value [...] MD PhD Endocrinology, Metabolism, & Lipid Research [phone] Contact Info: New Consults: [phone]) General Endocrine (Non-Diabetes): [phone] (Check 'Treatment Team' assignment for Diabetes 1 vs 2 vs 3) Diabetes After-Hours & Weekends: Diabetes Fellow [phone] or [phone] * Plan of Care - Marcos Link [...] Hyatt, 42 y.o. male (: 1980) Room: [place] [address] [address] ( ) LOS: 14 Rene Hyatt is [...] 25HYDROVITD <6 (L) 03/08/2023 CPEPTIDE 2.24 03/08/2023 [id number] 0.31 (H) 03/09/2023 Lab Results Component Value [...] vitamin D undetectable - Would recommend starting 63371QI increase to twice weekly x2 months. Would [...] Field MD Endocrinology, Metabolism, & Lipid Research [phone] Contact Info: New Consults: [phone]) General Endocrine (Non-Diabetes): [phone] (Check 'Treatment Team' assignment for Diabetes 1 vs 2 vs 3) Diabetes After-Hours & Weekends: Diabetes Fellow [phone] or [phone] * Plan of Care - Elysia Clarke [...] Hyatt, 42 y.o. male (: 1980) Room: [place] [address] ( ) LOS: 13 Rene Hyatt is [...] 25HYDROVITD <6 (L) 03/08/2023 CPEPTIDE 2.24 03/08/2023 [id number] 0.31 (H) 03/09/2023 Lab Results Component Value [...] vitamin D undetectable - Would recommend starting 93115OM increase to twice weekly x2 months. Would [...] & Lipid Research Contact Info: New Consults: [phone]) General Endocrine (Non-Diabetes): [phone] (Check 'Treatment Team' assignment for Diabetes 1 vs 2 vs 3) Diabetes After-Hours & Weekends: Diabetes Fellow [phone] or [phone] * Plan of Care - Rachel Cosme [...] of Care - Rosibel Lyons LCSW - 03/18/2023 4:17 PM CDT At patient's request, DIPIKA contacted [facility] ([phone] ext [phone]) regarding checking in on the cats at the home. DIPIKA was advised that in this case, PD would need to go to the home to check on them ([facility] does not have room for cats at this time). DIPIKA relayed this information to patient and provided non-emergency phone number for [facility] . Patient reported that hedid not want to do anything without his mother's permission due to it being her home. DIPIKA was able to speak with patient's mother, Savannah, via her RN at [facility]. Savannah gave permission for SW/patient to contact PD and request a visit to the home. DIPIKA contacted [facility] PD non-emergency after hours line ([phone]) and requested non-urgent visit to the home to check on the cats. DIPIKA was connected with an Officer Marisa, who reported that a city meter inspector and an officer had been at the home this morning and had spoken with patient's neighbor(Kemal Worrell @ [phone]). Kemal has been feeding the cats since patient's/Savannah's hospitalizations. Officer Marisa advised that patient/Savannah would be notified of the results from the city inspection, either by the meter inspector or by [employer] Ironworker Phil. DIPIKA provided RN station phone number as a back up in case they could not reach patient via his cell phone. DIPIKA presented to bedside and informed patient (and Savannah, who was on the phone) of the above. Provided Kemal's phone number and encouraged patient to call Kemal. DIPIKA remains available for support. Rosibel Lyons LCSW * Plan of Care - Angelika Plasencia RN - 03/18/2023 1:15 PM CDT Goals: Clinical [...] Hyatt, 42 y.o. male (: 1980) Room: [place] [address] [address] ( ) LOS: 12 Rene Hyatt is [...] labs, imaging, and diagnostics independently reviewed in [facility] and commented on below. No results found for: TSH , T3FREE , FREET4 , TSI , THYROGLOBULI , THGAB Lab Results Component Value Date CHOL 106 03/06/2023 TRIG 93 03/06/2023 HDL 20 (L) 03/06/2023 LDLCALC 67 03/06/2023 Lab Results Component Value Date PTH 12 (L) 03/09/2023 25HYDROVITD <6 (L) 03/08/2023 CPEPTIDE 2.24 03/08/2023 TUI45MA 0.31 (H) 03/09/2023 Lab Results Component Value [...] vitamin D undetectable - Would recommend starting 29543SO increase to twice weekly x2 months. Would [...] & Lipid Research Contact Info: New Consults: [phone]) General Endocrine (Non-Diabetes): [phone] (Check 'Treatment Team' assignment for Diabetes 1 vs 2 vs 3) Diabetes After-Hours & Weekends: Diabetes Fellow [phone] or [phone] * Plan of Care - Nan Tamayo [...] Lyons LCSW - 03/17/2023 9:19 AM CDT SW contacted [facility] ([phone]) and requested that staff provide patient's room phone number to patient's mother so that she can contact patient. Staff took the number and agreed to do so. SW checked [employer] report and noted that patient's case (for Medicaid application/approval) is pending with the processing agency. SW met with patient at bedside and relayed [...] CM will send updated therapy notes to [facility] when available, [facility] to review for possible Medicaid pending admission. [...] discharge needs arise please contact the covering spring encaser. * Assessment & Plan Note - Luis [...] surgery, GLP-RA would be appropriate * Consults, Subsequent - Domonique Blake MD - 03/16/2023 7:45 AM CDT Endocrinology & Diabetes BRIEF Progress Note Patient: Rene Hyatt, 42 y.o. male (: 1980) Room: [place] [address] [address] ( ) LOS: 10 Rene Hyatt is [...] vitamin D undetectable - Would recommend starting 92127EO increaes to twice weekly x2 months. Would also maintenance dose of 2000IU daily. ## Discharge Planning Use ???Adult END Diabetes Discharge?? Order Set Glargine (or other basal insulin) + GLP1 agonist if affordable + metformin 500mg BID - If the patient would like to be seen in the Diabetes Center, we will request an outpatient appointment. (Diabetes Center Scheduling: ) - recommend asking ict educator to assess patient inpatient -- Domonique Blake MD Endocrinology, Metabolism, & Lipid Research Contact Info: New Consults: [phone]) General Endocrine (Non-Diabetes): [phone] (Check 'Treatment Team' assignment for Diabetes 1 vs 2 vs 3) Diabetes After-Hours & Weekends: Diabetes Fellow [phone] or [phone] * Plan of Care - Rona Grant [...] Progressing * Hospital Course - Ira Starks NP - 03/15/2023 5:48 PM CDT Mr. Rene Hyatt is a 42 year old male who presented to [facility] ED with a chief complaint of perineal / scrotal pain and swelling and a foot ulcer. CT there showed a perineal fluid collection / abscess with gas in the collection and he was transferred to [place] for surgical care. 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 Home health RN to continue [...] improve Outcome: Progressing * Consults, Subsequent - Raul Acosta, Subha Carolina MD - 03/15/2023 12:53 PM CDT Infectious Disease Subsequent Consult Note Infectious Disease Team: General 4 Contact Information: Please see [facility] Treatment Team listing for up-to-date contact information. [...] For susceptibility results, refer to accession number [id number] on the scrotum abscess culture from 03/10/2023 MICROBIOLOGY (.) 03/10/2023 Preliminary Report: Few Mixed microorganisms. Includes the following: Rare Destiny glabrata Susceptibility testing results to follow. MICROBIOLOGY (.) 03/06/2023 Preliminary Report - Final Review Pending: Moderate Streptococcus anginosus For susceptibility results, refer to accession number [id number] on the scrotum tissue culture from 03/06/2023 Few Mixed aerobic and anaerobic microorganisms MICROBIOLOGY (.) 03/06/2023 Preliminary Report - Final Review Pending: Moderate Streptococcus anginosus Few Mixed aerobic and anaerobic microorganisms MICROBIOLOGY (.) 03/06/2023 Preliminary Report - Final Review Pending: Abundant Streptococcus anginosus For susceptibility results, refer to accession number [id number] on the scrotum tissue culture from 03/06/2023 [...] Team: General 4 Contact Information: Please see [facility] Treatment Team listing for up-to-date contact information. [...] For susceptibility results, refer to accession number [id number] on the scrotum tissue culture from 03/06/2023 Few Mixed aerobic and anaerobic microorganisms MICROBIOLOGY (.) 03/06/2023 Preliminary Report - Final Review Pending: Moderate Streptococcus anginosus Few Mixed aerobic and anaerobic microorganisms MICROBIOLOGY (.) 03/06/2023 Preliminary Report - Final Review Pending: Abundant Streptococcus anginosus For susceptibility results, refer to accession number [id number] on the scrotum tissue culture from 03/06/2023 [...] Hyatt, 42 y.o. male (: 1980) Room: [place] [address] [address] ( ) LOS: 7 Rene Hyatt is [...] 1326 03/13/23 1216 03/13/23 0826 03/12/23 2244 03/12/23203703/12/23 1656 03/12/23 1512 03/12/23 1322 03/12/23 0926 [...] 25HYDROVITD <6 (L) 03/08/2023 CPEPTIDE 2.24 03/08/2023 CTS99RN 0.33 (H) 03/08/2023 HCM22YO 0.32 (H) 03/08/2023 Lab Results Component Value [...] vitamin D undetectable - Would recommend starting 47786PD increaes to twice weekly x2 months. Would also maintenance dose of 2000IU daily. ## Discharge Planning Use ???Adult END Diabetes Discharge?? Order Set Glargine (or other basal insulin) + GLP1 agonist if affordable + metformin 500mg BID - If the patient would like to be seen in the Diabetes Center, we will request an outpatient appointment. (Diabetes Center Scheduling: ) - recommend asking ict educator to assess patient inpatient -- Alban Butler MD Endocrinology, Metabolism, & Lipid Research Contact Info: New Consults: [phone]) General Endocrine (Non-Diabetes): [phone] (Check 'Treatment Team' assignment for Diabetes 1 vs 2 vs 3) Diabetes After-Hours & Weekends: Diabetes Fellow [phone] or [phone] * Plan of Care - Rosibel Lyons LCSW - 03/13/2023 11:42 AM CDT SW met [...] with his mother and to check through [facility] as to presence of hotline/investigation. DIPIKA called [facility] ([phone]) where mother currently resides. DIPIKA spoke with food processing chemist, who stated that patients do not have phones in their rooms. SW inquired as to whether mother couldcome to the desk to speak with SW (via wheelchair/assist from RN). Music Rehabilitation Therapist stated that she didn't know anything about the patient. DIPIKA then attempted to reach mother via phone numbers available, but only one was in service ([phone]) and it was the home phone. DIPIKA called [facility] again and requested to speak with mother's RN. Was informed that RN did not answer the page and welcomed another call from DIPIKA later on. Called [facility] to check on presence of hotline/investigation. SW remained on hold for15 minutes and then disconnected. DIPIKA will make additional attempt at a later time. ADDENDUM 1505 DIPIKA called [facility] ([phone]) and requested to speak with assigned RN for patient's mother. DIPIKA was redirected multiple times but was eventually able to speak with Savannah. She reported that police had presented to the home and gone inside, where they found the house to be a mess. Savannah reported that a neighbor had called police and expressed concern about her being there alone (ella ofeliaboyd had been taken to hospital and Savannah to [facility]), at which point SW suggested that it was likely a welfare check. DIPIKA asked whether Savannah had received a call from [facility] -- she denied this. At Savannah's request, SW provided own contact information as well as [...] Team: General 4 Contact Information: Please see [facility] Treatment Team listing for up-to-date contact information. Subjective Interval History: Patient was taken back to OR yesterday. Noted to have healthy wound with granulation tissue, areas of fibrinous exudate debrided. Wound was closed and drain placed. OR cultures rowing mixed micro and yeast. He continues on [...] For susceptibility results, refer to accession number [id number] on the scrotum tissue culture from 03/06/2023 Few Mixed aerobic and anaerobic microorganisms MICROBIOLOGY (.) 03/06/2023 Preliminary Report - Final Review Pending: Moderate Streptococcus anginosus Few Mixed aerobic and anaerobic microorganisms MICROBIOLOGY (.) 03/06/2023 Preliminary Report - Final Review Pending: Abundant Streptococcus anginosus For susceptibility results, refer to accession number [id number] on the scrotum tissue culture from 03/06/2023 [...] Pt is uninsured,(has been seen by [facility] patient care representative) pt has no PCP. Support:Mother Transportation:TBD F/U appointment:Appointment to be addressed prior to discharge. ADD:03/17/2023 Goal/Plan: Collaboration with patient/family, clinical team to identify discharge needs to assure interventions completed for safe discharge and continuum of care, and that patient/family are agreeable with.; Case Management will follow for planning and referrals as needed. If any further discharge needs arise please contact the covering spring encaser. * Plan of Care - Bethany Saravia [...] Shift: Get procedure, receive abx * Consults, Subsequent - Sterling Negron MD - 03/12/2023 8:03 PM CDT Endocrinology & Diabetes Progress Note Patient: Rene Hyatt, 42 y.o. male (: 1980) Room: [place] [address] ( ) LOS: 6 Rene Hyatt is [...] 25HYDROVITD <6 (L) 03/08/2023 CPEPTIDE 2.24 03/08/2023 QIU07ZF 0.33 (H) 03/08/2023 KFL81DO 0.32 (H) 03/08/2023 Lab Results Component Value [...] vitamin D undetectable - Would recommend starting 68677OH weekly x3 months. Then maintenance dose of 2000IU daily. ## Discharge Planning Use ???Adult END Diabetes Discharge?? Order Set Glargine (or other basal insulin) + GLP1 agonist if affordable + metformin 500mg BID - If the patient would like to be seen in the Diabetes Center, we will request an outpatient appointment. (Diabetes Center Scheduling: ) - recommend asking ict educator to assess patient inpatient -- Sterling Negron MD Endocrinology, Metabolism, & Lipid Research Contact Info: New Consults: [phone]) General Endocrine (Non-Diabetes): [phone] (Check 'Treatment Team' assignment for Diabetes 1 vs 2 vs 3) Diabetes After-Hours & Weekends: Diabetes Fellow [phone] or [phone] Cosigned by Domonique Blake MD at 03/12/2023 [...] of fibrinous exudate weredebrided sharply. A 19 Armenian round drain was placed into the wound [...] MD - Fellow Anesthesiologist: Lisa Carrion MD SECURITY SERVICES SPECIALIST: Rona Rendon CRNA; Hope Mays CRNA Student Nurse Health Care Recruiter: Hannah Thompson Recyclable Materials Distributor: Vianey Bhakta RN Recyclable Materials Distributor Relief: Vianey Burch RN Scrub Relief: Vianey [...] at another time. SW to do so. Rosibel Lyons LCSW * Consults, Subsequent - Sterling Negron MD - 03/11/2023 12:35 PM CDT Endocrinology & Diabetes Progress Note Patient: Rene Hyatt, 42 y.o. male (: 1980) Room: [place] [address] [address] ( ) LOS: 5 Rene Hyatt is [...] 25HYDROVITD <6 (L) 03/08/2023 CPEPTIDE 2.24 03/08/2023 SJD00FF 0.33 (H) 03/08/2023 Lab Results Component Value [...] vitamin D undetectable - Would recommend starting 42473ZQ weekly x3 months. Then maintenance dose of 2000IU daily. ## Discharge Planning Use ???Adult END Diabetes Discharge?? Order Set Glargine (or other basal insulin) + GLP1 agonist if affordable + metformin 500mg BID - If the patient would like to be seen in the Diabetes Center, we will request an outpatient appointment. (Diabetes Center Scheduling: ) - recommend asking ict educator to assess patient inpatient -- Sterling Negron MD Endocrinology, Metabolism, & Lipid Research Contact Info: New Consults: [phone]) General Endocrine (Non-Diabetes): [phone] (Check 'Treatment Team' assignment for Diabetes 1 vs 2 vs 3) Diabetes After-Hours & Weekends: Diabetes Fellow [phone] or [phone] Cosigned by Domonique Blake MD at 03/11/2023 [...] provided contact information on AVS. Fannie Celaya [facility] Community Counterintelligence Analyst [phone] * Consults, Subsequent - Subha Butler MD [...] For susceptibility results, refer to accession number [id number] on the scrotum tissue culture from 03/06/2023 Few Mixed aerobic and anaerobic microorganisms MICROBIOLOGY (.) 03/06/2023 Preliminary Report - Final Review Pending: Moderate Streptococcus anginosus Few Mixed aerobic and anaerobic microorganisms MICROBIOLOGY (.) 03/06/2023 Preliminary Report - Final Review Pending: Abundant Streptococcus anginosus For susceptibility results, refer to accession number [id number] on the scrotum tissue culture from 03/06/2023 [...] diabetic shoes with custom 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 - plan for vit d 2k daily after 50k loading phase - f/u with PCP * Assessment & Plan Note - Susan Epps MD - 03/10/2023 9:40 PM CDT Associated Problem(s): T1DM (type 1 diabetes mellitus) (HCC) (Resolved 02/17/2024) Newly diagnosed this admission. Endocrinology [...] discharge. - Urology removed drain * Consults, David - Sterling Negron MD - 03/10/2023 3:57 PM CDT Endocrinology & Diabetes Progress Note Patient: Rene Hyatt, 42 y.o. male (: 1980) Room: [place] [id number] ( ) LOS: 4 Rene Hyatt is a 42 y.o. male with type 2 DM admitted with DKA and endocrine is consulted to help with DKA management. Interval Events & Subjective Patient had no acute events overnight. They are feeling well this afternoon, had some vomiting thismorning. Endorsed poor sleep. Tolerating diet. He reports that he lives in [place] near [facility]. He is uninsured TDD: 33 BG range: 142-215 Diet: Adult Diet Restricted; Consistent Carbohydrate Recent Labs Lab Units 03/10/23 1147 03/10/23 0828 03/09/23 2142 03/09/23 2115 03/09/23 1655 03/09/23 1126 03/09/23 0734 03/09/23 0329 03/09/23 0006 03/08/232058 GLUCOSE mg/dL -- -- 184 -- -- [...] vitamin D undetectable - Would recommend starting 34238TS weekly x3 months. Then maintenance dose of 2000IU daily. ## Discharge Planning Use ???Adult END Diabetes Discharge?? Order Set - If the patient would like to be seen in the Diabetes Center, we will request an outpatient appointment. (Diabetes Center Scheduling: ) - recommend asking ict educator to assess patient inpatient -- Sterling Negron MD Endocrinology, Metabolism, & Lipid Research Contact Info: New Consults: [phone]) General Endocrine (Non-Diabetes): [phone] (Check 'Treatment Team' assignment for Diabetes 1 vs 2 vs 3) Diabetes After-Hours & Weekends: Diabetes Fellow [phone] or [phone] Cosigned by Domonique Blake MD at 03/10/2023 [...] called to the hospitalist service. QUESTIONS? Call [phone] ([phone]). * Plan of Care - Luis [...] palpable abnormality on KARLA - Wound measured [id number] at conclusion OPERATIVE NOTE: Patient was identified [...] for his paraplegic mother, Savannah Hyatt, , multimedia coordinator. Pt shared that his mother is currently staying at [facility] while pt is inpatient. Sent medicaid request to [employer] and provided chartered financial analyst application at bedside. Pt denied additional needs. Pt verbally nominated mother, Savannah Hyatt, , as surrogate decision maker. SW will continue to follow for additional needs. CM to follow for discharge planning needs. Becca Almanza LMSW * Initial Assessments - Paula Austin RN - 03/09/2023 1:48 PM CDT CM Initial Assessment Interview Note Information Obtained From: Other (Specify) Name: Savannah Hyatt (Mother) [phone] (03/09/231345) Admission Source: home Impression: Patient is a [...] Coverage: self pay Prescription Coverage: No Pharmacy: [facility] - [address] [address] -verified Primary Care Provider: No, Physician -verified Prior to Admission: Functional Status: Independent with ADLs Primary Caregiver: Self Support System: Parent (Savannah Hyatt (Mother) [phone]) Home Care Services: No Durable Medical Equipment: Walker (wheeled), Wheelchair ramp (belongs to patient's mother) Living Arrangements: Parent (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 Patient's mother has MS and is unable to walk. Patient's father recently and that is when the patient became his mother's sales professional bilingual and moved in with her. Address and [...] Collaboration with patient, MD, direct care nurse, Senior Test Analyst, and other members of the health care team to assure needed interventions completed. 2. Return patient to optimal level of self-care post discharge. 3. Assembler Fishing Floats will follow for Discharge Planning - interventions [...] to follow * Consults, Subsequent - Sterling Negron MD - 03/09/2023 8:15 AM CDT Endocrinology & Diabetes Progress Note Patient: Rene Hyatt, 42 y.o. male (: 1980) Room: [place] [id number] ( ) LOS: 3 Rene Hyatt is a 42 y.o. male with type 2 DM admitted with DKA and endocrine is consulted to help with DKA management. Interval Events & Subjective Patient had no acute events overnight. They are feeling well this afternoon, had some vomiting thismorning. Endorsed poor sleep. Tolerating diet. He reports that he lives in [place] near [facility]. He is uninsured TDD: 33 BG [...] vitamin D undetectable - Would recommend starting 14724AY weekly x3 months. Then maintenance dose of 2000IU daily. ## Discharge Planning Use ???Adult END Diabetes Discharge?? Order Set - If the patient would like to be seen in the Diabetes Center, we will request an outpatient appointment. (Diabetes Center Scheduling: ) - recommend asking ict educator to assess patient inpatient -- Sterling Negron MD Endocrinology, Metabolism, & Lipid Research Contact Info: New Consults: [phone]) General Endocrine (Non-Diabetes): [phone] (Check 'Treatment Team' assignment for Diabetes 1 vs 2 vs 3) Diabetes After-Hours & Weekends: Diabetes Fellow [phone] or [phone] Cosigned by oDmonique Blake MD at 03/09/2023 7:20 PM CDT [...] Hyatt, 42 y.o. male (: 1980) Room: [place] [address][id number] ( ) LOS: 2 Rene Hyatt is [...] juice on tray Recent Labs Lab Units 03/08/23 20503/08/23 1934 03/08/23 1639 03/08/23 1203 03/08/23 0958 [...] (Diabetes Center Scheduling: ) - recommend asking ict educator to assess patient inpatient -- Toby Teresa MD Endocrinology, Metabolism, & Lipid Research Contact Info: New Consults: [phone]) General Endocrine (Non-Diabetes): [phone] (Check 'Treatment Team' assignment for Diabetes 1 vs 2 vs 3) Diabetes After-Hours & Weekends: Diabetes Fellow [phone] or [phone] Cosigned by Alban Butler MD at 03/09/2023 [...] 9:25 AM CDT OPERATIVE REPORT FACILITY ID: [facility] SURGEON Arnaldo Robles MD BOX TRUCK DRIVER Adelita Lucas MD ANESTHESIA General PREOPERATIVE DIAGNOSES [...] deeper perineum and scrotum. Wound size was [id number] by the end of the case after [...] (premix) 900 mg 900 mg intravenous Q8H ASTON Matheus Frias PA Stopped at 03/07/23 0609 dextrose gel in packet 15 g 15 [...] (LOVENOX) syringe 40 mg 40 mg subcutaneous Daily-2099 Matheus Frias PA 40 mg at 03/06/232020 glucagon injection 1 mg 1 mg intramuscular Q30 Min PRN Matheus Frias PA HYDROmorphone (DILAUDID) injection 0.2 mg 0.2 mg intravenous Q2H PRN Deanna Thompson MD PhD insulin regular bolus from bag [...] Deanna Thompson MD PhD 5 mg at 03/06/23 225 senna (SENOKOT) tablet 1 tablet 1 tablet oral Daily Matheus Frias PA 1 tablet at 03/06/232020 vancomycin (VANCOCIN) 2,250 [...] Wander García M.D. RB: SALLY Report ID: [id number] Reading Location: [place] [address] Assessment and Plan: Rene Hyatt is a [...] hesitate to contact us by paging the director of accreditation urology resident. Adelita Benoit MD 03/07/23 Urology [...] and Critical Care Surgery Department of Surgery [facility] [phone] * Brief Op Note - Bijan Villafuerte [...] - Assisting Anesthesiologist: Gabriela Doyle MD PhD SECURITY SERVICES SPECIALIST: Murray Chacon CRNA Manager Intelligence: Theodora Sarmiento MD Recyclable Materials Distributor: Nicole Veloz RN Scrub: Deanna Crocker [facility] Recyclable Materials Distributor: Rhoda Almaguer RN Recyclable Materials Distributor Second: Cookie Boston RN DATE OF SURGERY [...] ulcers. By: Anil Birmingham MD Time: 03/06 1153 Comment: Urology examined patient, assessment is that [...] the floor. By: Anil Birmingham MD Time: 03/06 1155 Comment: SOCIAL: patient's mother is paraplegic, patient is worried about her and does not have a cellphone. I called her and updated her on her son's situation, stating that he will require OR. She is worried and would like us to update her on any advancement that occurs, especially post-op. 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 First noted perineal discomfort progressed to scrotal swelling + pain over last two weeks. Presented to [facility] this morning with WBC 17.3 elevated CRP/ESR, glucose 300s (not diagnosed diabetic), CT concerning for scrotal abscess vs NSTI. Start on vanc/cefe/clinda and received 3L IVF prior to transfer. Here AOx3 c/o scrotal pain, also noted deep ulcers x2 to L foot which probe to bone (plain films obtained at [facility]). Will provide pain control, continue abx, discuss with surgery and urology, engage podiatry for inpatient foot wound care. By: Elisabeth Ferrara MD Time: 03/06 5706 Comment: Patient has been evaluated by both [...] the medical record. Carolee Daly MD 03/06/23 6110 * ED Pre-Arrival Note - Laquita Coleman, RN - 03/06/2023 7:56 AM CDT Pre-Arrival Note Pt coming from [facility] in [place] accepted by Dr. Ramirez from urology. Pt [...] PM CDT POCT GLUCOSE DEVICE Routine 03/20/2023 8:23 AM CDT POCT GLUCOSE DEVICE Routine 03/19/2023 [...] 10:23 AM CDT Perineal abscess Case Notes 10- Moved case up per Holly via phone call.EF10/4- Missing dpc email sent to [facility]. Special Needs pulsavac, irrigant DEBRIDEMENT WOUND 03/12/2023 10: 23 AM CDT Perineal abscess Case Notes 10- Moved case up per Whitfield via phone call.EF10/4- Missing dpc email sent to [facility]. Special Needs pulsavac, irrigant POCT GLUCOSE DEVICE [...] Routine 03/10/2023 7:32 AM CDT Scrotal abscess DIFFERENTIAL AUTO STAT 03/10/2023 12: 14 AM [...] DEVICE Routine 03/07/2023 9 :35 AM CDT EGFR Routine 03/07/2023 7:57 AM CDT BETA-HYDROXYBUTYRATE [...] GRAM STAIN Routine 03/06/2023 5:17 PM CDT POCT GLUCOSE DEVICE Routine 03/06/2023 4 :08 PM CDT VL US ARTERIAL DUPLEX LOWER EXTREMITY BILATERAL ED 03/06/2023 3:21 PM CDT US ARTERIAL DOPPLER LOWER EXTREMITY BILATERAL ED Urgent/IP Urgent 03/06/2023 3:14 PM CDT B CHECK SAMPLE STAT 03/06/2023 12:17 PM CDT TX CRITICAL CARE ILL/INJURED PATIENT INIT 30-74 MIN [...] 4 PM CDT 03/25/2023 12:14 PM CDT Lamonte Guzmán MD LAB POCT ORDERABLES - DEVICE Fi nal Result Performing Organization Address [facility] Co de Phone Number NICOLASA [facility] [place] [address] * POCT glucose (03/25/2023 8:19 AM CDT) Glucose, POC 187 70 - 199 mg/dL Blood 03/25/2023 8:19 AM CDT 03/25/2023 8:19 AM CDT Lamonte Guzmán MD LAB POCT ORDERABLES - DEVICE Fi nal Result Performing Organization Address City/[facility]/[place] [address] * POCT glucose (03/25/2023 4:51 AM CDT) Glucose, POC 198 70 - 199 mg/dL Blood 03/25/2023 4:51 AM CDT 03/25/2023 4:51 AM CDT us Lamonte Guzmán MD LAB POCT ORDERABLES - DEVICE Fi nal Result Performing Organization Address [facility] [place] [address] * POCT glucose (03/25/2023 1:36 AM CDT) Glucose, POC 192 70 - 199 mg/dL Blood 03/25/2023 1:36 AM CDT 03/25/2023 1:36 AM CDT us Lamonte Guzmán MD LAB POCT ORDERABLES - DEVICE Fi nal Result Performing Organization Address [facility] [place] [address] * POCT glucose (03/24/2023 9:47 PM CDT) Glucose, POC 163 70 - 199 mg/dL Blood 03/24/2023 9:47 PM CDT 03/24/2023 9:47 PM CDT us Lamonte Guzmán MD LAB POCT ORDERABLES - DEVICE Fi nal Result Performing Organization Address [facility] [place] [address] * POCT glucose (03/24/2023 4:50 PM CDT) Glucose, POC 155 70 - 199 mg/dL Blood 03/24/2023 4:50 PM CDT 03/24/2023 4:50 PM CDT Lamonte Guzmán MD LAB POCT ORDERABLES - DEVICE Fi nal Result Performing Organization Address [facility] de Phone Number [facility] [address] [place] [address] * POCT glucose (03/24/2023 1:22 PM CDT) Glucose, POC 153 70 - 199 mg/dL Blood 03/24/2023 1:22 PM CDT 03/24/2023 1:22 PM CDT Lamonte Guzmán MD LAB POCT ORDERABLES - DEVICE Fi nal Result Performing Organization Address [facility] de Phone Number [facility] [address] [place] [address] * POCT glucose (03/24/2023 8:38 AM CDT) Glucose, POC 168 70 - 199 mg/dL Blood 03/24/2023 8:38 AM CDT 03/24/2023 8:38 AM CDT Lamonte Guzmán MD LAB POCT ORDERABLES - DEVICE Fi nal Result Performing Organization Address [facility] de Phone Number [facility] [address] [place] [address] * POCT glucose (03/23/2023 8:35 PM CDT) Glucose, POC 159 70 - 199 mg/dL Blood 03/23/2023 8:35 PM CDT 03/23/2023 8:35 PM CDT us Lamonte Guzmán MD LAB POCT ORDERABLES - DEVICE Fi nal Result Performing Organization Address [facility] Co de Phone Number [facility] [place] [address] * POCT glucose (03/23/2023 5:14 PM CDT) Glucose, POC 148 70 - 199 mg/dL Blood 03/23/2023 5:14 PM CDT 03/23/2023 5:14 PM CDT Evy Chong MD LAB POCT ORDERA BLES - DEVICE Final Result Performing Organization Address [facility] Co de Phone Number [facility] [place] [address] * POCT glucose (03/23/2023 12:23 PM CDT) Glucose, POC 178 70 - 199 mg/dL Blood 03/23/2023 12:2 3 PM CDT 03/23/2023 12:23 PM CDT Evy Chong MD LAB POCT ORDERA BLES - DEVICE Final Result Performing Organization Address [facility] Co de Phone Number [facility] Department [place] [address] * POCT glucose (03/23/2023 9:02 AM CDT) Glucose, POC 193 70 - 199 mg/dL Blood 03/23/2023 9:02 AM CDT 03/23/2023 9:02 AM CDT Evy Chong MD LAB POCT ORDERA BLES - DEVICE Final Result Performing Organization Address City/[facility]/ZIP Co de Phone Number [facility] [place] [address] * eGFR (03/22/2023 11:01 PM CDT) [facility] eGFR >90 90 - 130 mL/min/1. 73 [...] 1 PM CDT 03/23/2023 12:04 AM CDT us Josephine JARAMILLO LAB BLOOD ORDERABLES Shilpi l Result NICOLASA VALENTIN [facility] Department [place] [address] * (ABNORMAL) Differential, auto (03/22/2023 11:01 PM CDT) [facility] Neutrophil abs 3.9 1.7 - 6.5 K/cumm Imm gran abs 0.0 0.0 - 0.1 K/cumm [facility] Lymphocyte abs 2.7 0.8 - 3.3 K/cumm [facility] Monocyte abs 0.6 0.2 - 0.8 K/cumm [facility] Eosinophil abs 0.6(H) 0.0 - 0.5 K/cumm [facility] Basophil abs 0.0 0.0 - 0.1 K/cumm [facility] Neutrophil pct 49.0 % [facility] Comment: Interpretive Data Percent cell count reference ranges are not reported, since discordance with absolute values may lead to misinterpretation of CBC data. Current Interpretive Data was last revised on 2017. Imm gran pct 0.4 % [facility] Comment: Interpretive Data Percent cell count reference ranges are not reported, since discordance with absolute values may lead to misinterpretation of CBC data. Current Interpretive Data was last revised on 2017. Lymphocyte pct 34.2 % [facility] Comment: Interpretive Data Percent cell count reference ranges are not reported, since discordance with absolute values may lead to misinterpretation of CBC data. Current Interpretive Data was last revised on 2017. Monocyte pct 7.9 % [facility] Comment: Interpretive Data Percent cell count reference ranges are not reported, since discordance with absolute values may lead to misinterpretation of CBC data. Current Interpretive Data was last revised on 2017. Eosinophil pct 8.0 % [facility] Comment: Interpretive Data Percent cell count reference ranges are not reported, since discordance with absolute values may lead to misinterpretation of CBC data. Current Interpretive Data was last revised on 2017. Basophil pct 0.5 % [facility] Comment: Interpretive Data Percent cell count reference ranges are not reported, since discordance with absolute values may lead to misinterpretation of CBC data. Current Interpretive Data was last revised on 2017. Blood 03/22/2023 11:0 1 PM CDT 03/23/2023 12:05 AM CDT Josephine JARAMILLO LAB BLOOD ORDERABLES Shilpi montano Result [facility] Department [place] [address] * Basic metabolic panel (03/22/2023 11:01 PM CDT) Pathologist [facility] Sodium 140 135 - 145 mmol/L Potassium, pl 4.0 3.3 - 4.9 mmol/L [facility] Chloride 104 97 - 110 mmol/L [facility] CO2 28 22 - 32 mmol/L [facility] Anion gap 8 2 - 15 mmol/L [facility] BUN 17 6 - 25 mg/dL [facility] Creatinine 0.83 0.80 - 1.30 mg/dL [facility] Glucose 191 70 - 199 mg/dL [facility] Comment: Interpretive Data Fasting glucose >/= 126 [...] 2022. Calcium 8.5 8.5 - 10.3 mg/dL [facility] Blood 03/22/2023 11:0 1 PM CDT 03/23/2023 12:04 AM CDT Josephine JARAMILLO LAB BLOOD ORDERABLES Shilpi l Result Performing Organization Address City/[facility] Co de Phone Number [facility] Department [place] [address] * (ABNORMAL) CBC with auto differential (03/22/2023 11:01 PM CDT) [facility] WBC 7.9 3.8 - 9.9 K/cumm Hgb 9.6(L) 13.0 - 17.5 g/dL [facility] Comment: Interpretive Data A reference range for this assay has not been established for patients with an unknown legal sex. Please refer to the laboratory test catalog for established sex-specific reference intervals. Current interpretive data was last revised on 2023. Hct 29.5(L) 38.9 - 50.3 % [facility] Comment: Interpretive Data A reference range for this assay has not been established for patients with an unknown legal sex. Please refer to the laboratory test catalog for established sex-specific reference intervals. Current interpretive data was last revised on 2023. Plt 226 150 - 400 K/cumm [facility] MPV 10.0 9.1 - 12.3 fL [facility] RBC 3.47(L) 4.30 - 5.80 M/cumm [facility] Comment: Interpretive Data A reference range for this assay has not been established for patients with an unknown legal sex. Please refer to the laboratory test catalog for established sex-specific reference intervals. Current interpretive data was last revised on 2023. MCV 85.0 81.3 - 96.4 fL [facility] MCH 27.7 27.1 - 33.3 pg [facility] MCHC 32.5 32.3 - 35.7 g/dL [facility] RDW CV 14.5 11.1 - 14.9 % [facility] RDW SD 44.3 35.7 - 48.1 fL [facility] NRBC abs 0.00 0.00 - 0.01 K/cumm [facility] Blood 03/22/2023 11:0 1 PM CDT 03/23/2023 12:05 AM CDT Josephine JARAMILLO LAB BLOOD ORDERABLES Shilpi l Result [facility] Department [place] [address] * POCT glucose (03/22/2023 8:13 PM CDT) [facility] Glucose, POC 145 70 - 199 mg/dL Blood 03/22/2023 8:13 PM CDT 03/22/2023 8:13 PM CDT Evy Chong MD LAB POCT ORDERA BLES - DEVICE Final Result Performing Organization Address [facility] Co de Phone Number [facility] [place] [address] * POCT glucose (03/22/2023 5:04 PM CDT) Glucose, POC 187 70 - 199 mg/dL Blood 03/22/2023 5:04 PM CDT 03/22/2023 5:04 PM CDT Evy Chong MD LAB POCT ORDERA BLES - DEVICE Final Result Performing Organization Address [facility] de Phone Number [facility] [place] [address] * POCT glucose (03/22/2023 2:09 PM CDT) Glucose, POC 180 70 - 199 mg/dL Blood 03/22/2023 2:09 PM CDT 03/22/2023 2:09 PM CDT Evy Chong MD LAB POCT ORDERA BLES - DEVICE Final Result Performing Organization Address [facility] de Phone Number [facility] [address] [place] [address] * POCT glucose (03/22/2023 8:13 AM CDT) Glucose, POC 175 70 - 199 mg/dL Blood 03/22/2023 8:13 AM CDT 03/22/2023 8:13 AM CDT Evy Chong MD LAB POCT ORDERA BLES - DEVICE Final Result Performing Organization Address [facility] Co de Phone Number [facility] [place] [address] * eGFR (03/21/2023 10:43 PM CDT) eGFR >90 90 - 130 [...] ORDERABLES Shilpi l Result Performing Organization Address City/[facility] Co de Phone Number NICOLASA VALENTIN [facility] Department [place] [address] * (ABNORMAL) Differential, auto (03/21/2023 10:43 PM CDT) Neutrophil abs 4.6 1.7 - 6.5 K/cumm Imm gran abs 0.1 0.0 - 0.1 K/cumm [facility] Lymphocyte abs 2.8 0.8 - 3.3 K/cumm [facility] Monocyte abs 0.7 0.2 - 0.8 K/cumm [facility] Eosinophil abs 0.7(H) 0.0 - 0.5 K/cumm [facility] Basophil abs 0.0 0.0 - 0.1 K/cumm [facility] Neutrophil pct 51.6 % [facility] Comment: Interpretive Data Percent cell count reference ranges are not reported, since discordance with absolute values may lead to misinterpretation of CBC data. Current Interpretive Data was last revised on 2017. Imm gran pct 0.7 % [facility] Comment: Interpretive Data Percent cell count reference ranges are not reported, since discordance with absolute values may lead to misinterpretation of CBC data. Current Interpretive Data was last revised on 2017. Lymphocyte pct 31.7 % [facility] Comment: Interpretive Data Percent cell count reference ranges are not reported, since discordance with absolute values may lead to misinterpretation of CBC data. Current Interpretive Data was last revised on 2017. Monocyte pct 8.1 % [facility] Comment: Interpretive Data Percent cell count reference ranges are not reported, since discordance with absolute values may lead to misinterpretation of CBC data. Current Interpretive Data was last revised on 2017. Eosinophil pct 7.5 % [facility] Comment: Interpretive Data Percent cell count reference ranges are not reported, since discordance with absolute values may lead to misinterpretation of CBC data. Current Interpretive Data was last revised on 2017. Basophil pct 0.4 % [facility] Comment: Interpretive Data Percent cell count reference ranges are not reported, since discordance with absolute values may lead to misinterpretation of CBC data. Current Interpretive Data was last revised on 2017. Blood 03/21/2023 10:4 3 PM CDT 03/21/2023 11:18 PM CDT Josephine Joe JARAMILLO LAB BLOOD ORDERABLES Shilpi l Result [facility] [place] [address] * Basic metabolic panel (03/21/2023 10:43 PM CDT) Pathologist [facility] Sodium 138 135 - 145 mmol/L Potassium, pl 4.1 3.3 - 4.9 mmol/L [facility] Chloride 106 97 - 110 mmol/L [facility] CO2 28 22 - 32 mmol/L [facility] Anion gap 4 2 - 15 mmol/L [facility] BUN 16 6 - 25 mg/dL [facility] Creatinine 0.81 0.80 - 1.30 mg/dL [facility] Glucose 158 70 - 199 mg/dL [facility] Comment: Interpretive Data Fasting glucose >/= 126 [...] 2022. Calcium 8.8 8.5 - 10.3 mg/dL [facility] Blood 03/21/2023 10:4 3 PM CDT 03/21/2023 11:18 PM CDT Josephine Joe JARAMILLO LAB BLOOD ORDERABLES Shilpi l Result Performing Organization Address [facility]/ZIP Co de Phone Number [facility] Department [place] [address] * (ABNORMAL) CBC with auto differential (03/21/2023 10:43 PM CDT) [facility] WBC 9.0 3.8 - 9.9 K/cumm Hgb 10.4(L) 13.0 - 17.5 g/dL [facility] Comment: Interpretive Data A reference range for this assay has not been established for patients with an unknown legal sex. Please refer to the laboratory test catalog for established sex-specific reference intervals. Current interpretive data was last revised on 2023. Hct 31.6(L) 38.9 - 50.3 % [facility] Comment: Interpretive Data A reference range for this assay has not been established for patients with an unknown legal sex. Please refer to the laboratory test catalog for established sex-specific reference intervals. Current interpretive data was last revised on 2023. Plt 228 150 - 400 K/cumm [facility] MPV 9.6 9.1 - 12.3 fL [facility] RBC 3.72(L) 4.30 - 5.80 M/cumm [facility] Comment: Interpretive Data A reference range for this assay has not been established for patients with an unknown legal sex. Please refer to the laboratory test catalog for established sex-specific reference intervals. Current interpretive data was last revised on 2023. MCV 84.9 81.3 - 96.4 fL [facility] MCH 28.0 27.1 - 33.3 pg [facility] MCHC 32.9 32.3 - 35.7 g/dL [facility] RDW CV 14.5 11.1 - 14.9 % [facility] RDW SD 43.2 35.7 - 48.1 fL [facility] NRBC abs 0.00 0.00 - 0.01 K/cumm [facility] Blood 03/21/2023 10:4 3 PM CDT 03/21/2023 11:18 PM CDT Josephine JARAMILLO LAB BLOOD ORDERABLES Shilpi montano Result [facility] [place] [address] * Type and screen (03/21/2023 10:43 PM CDT) [facility] ABO Rh B Negative Keenan, indirect Negative [facility] Blood 03/21/2023 10:4 3 PM CDT 03/21/2023 11:13 PM CDT Narrative [facility] - 03/22/2023 12:13 AM CDT Has the patient had Daratumumab or Isatuximab in the past 6 months?->Unknown us Matheus JARAMILLO LAB BLOOD BANK TEST ORDERAB LES Final Result Performing Organization Address City/[facility]/ZIP Co de Phone Number [facility] [place] [address] [place] [address] * POCT glucose (03/21/2023 8:50 PM CDT) [facility] Glucose, POC 166 70 - 199 mg/dL Blood 03/21/2023 8:50 PM CDT 03/21/2023 8:50 PM CDT Evy Chong MD LAB POCT ORDERA BLES - DEVICE Final Result Performing Organization Address City/[facility] Co de Phone Number [facility] Department [place] [address] [place] [address] * POCT glucose (03/21/2023 5:40 PM CDT) [facility] Glucose, POC 197 70 - 199 mg/dL Blood 03/21/2023 5:40 PM CDT 03/21/2023 5:40 PM CDT Evy Chong MD LAB POCT ORDERA BLES - DEVICE Final Result Performing Organization Address [facility] Co de Phone Number [facility] [place] [address] * POCT glucose (03/21/2023 12:03 PM CDT) Glucose, POC 131 70 - 199 mg/dL Glucose comment 1 Glu2: RN/ Notified [facility] Blood 03/21/2023 12:0 3 PM CDT 03/21/2023 12:03 PM CDT Evy Chong MD LAB POCT ORDERA BLES - DEVICE Final Result Performing Organization Address [facility] Co de Phone Number [facility] [place] [address] [place] [address] * POCT glucose (03/21/2023 8:33 AM CDT) Glucose, POC 169 70 - 199 mg/dL Glucose comment 1 Glu2: ARYAN/ Notified [facility] Blood 03/21/2023 8:33 AM CDT 03/21/2023 8:[address] [facility] Evy Chong MD LAB POCT ORDERA BLES - DEVICE Final Result Performing Organization Address [facility] de Phone Number [facility] [place] [address] [place] [address] * eGFR (03/20/2023 10:55 PM CDT) eGFR >90 90 - 130 [...] JARAMILLO LAB BLOOD ORDERABLES Shilpi montano Result [facility] [place] [address] * (ABNORMAL) Differential, auto (03/20/2023 10:55 PM CDT) Pathologist [facility] Neutrophil abs 5.3 1.7 - 6.5 K/cumm Imm gran abs 0.1 0.0 - 0.1 K/cumm [facility] Lymphocyte abs 2.9 0.8 - 3.3 K/cumm [facility] Monocyte abs 0.7 0.2 - 0.8 K/cumm [facility] Eosinophil abs 0.6(H) 0.0 - 0.5 K/cumm [facility] Basophil abs 0.0 0.0 - 0.1 K/cumm [facility] Neutrophil pct 55.3 % [facility] Comment: Interpretive Data Percent cell count reference ranges are not reported, since discordance with absolute values may lead to misinterpretation of CBC data. Current Interpretive Data was last revised on 2017. Imm gran pct 0.5 % [facility] Comment: Interpretive Data Percent cell count reference ranges are not reported, since discordance with absolute values may lead to misinterpretation of CBC data. Current Interpretive Data was last revised on 2017. Lymphocyte pct 30.5 % [facility] Comment: Interpretive Data Percent cell count reference ranges are not reported, since discordance with absolute values may lead to misinterpretation of CBC data. Current Interpretive Data was last revised on 2017. Monocyte pct 7.3 % [facility] Comment: Interpretive Data Percent cell count reference ranges are not reported, since discordance with absolute values may lead to misinterpretation of CBC data. Current Interpretive Data was last revised on 2017. Eosinophil pct 6.1 % [facility] Comment: Interpretive Data Percent cell count reference ranges are not reported, since discordance with absolute values may lead to misinterpretation of CBC data. Current Interpretive Data was last revised on 2017. Basophil pct 0.3 % [facility] Comment: Interpretive Data Percent cell count reference ranges are not reported, since discordance with absolute values may lead to misinterpretation of CBC data. Current Interpretive Data was last revised on 2017. Blood 03/20/2023 10:5 5 PM CDT 03/21/2023 12:06 AM CDT Josephine JARAMILLO LAB BLOOD ORDERABLES Shilpi montano Result [facility] [place] [address] * (ABNORMAL) Basic metabolic panel (03/20/2023 10:55 PM CDT) Sodium 136 135 - 145 mmol/L Potassium, pl 3.8 3.3 - 4.9 mmol/L [facility] Chloride 102 97 - 110 mmol/L [facility] CO2 27 22 - 32 mmol/L [facility] [facility] Anion gap 7 2 - 15 mmol/L [facility] BUN 17 6 - 25 mg/dL [facility] Creatinine 0.77(L) 0.80 - 1.30 mg/dL [facility] Glucose 157 70 - 199 mg/dL [facility] Comment: Interpretive Data Fasting glucose >/= 126 [...] 2022. Calcium 8.8 8.5 - 10.3 mg/dL [facility] Blood 03/20/2023 10:5 5 PM CDT 03/21/2023 12:06 AM CDT Josephine JARAMILLO LAB BLOOD ORDERABLES Shilpi montano Result [facility] [place] [address] * (ABNORMAL) CBC with auto differential (03/20/2023 10:55 PM CDT) [facility] WBC 9.6 3.8 - 9.9 K/cumm Hgb 11.1(L) 13.0 - 17.5 g/dL [facility] Comment: Interpretive Data A reference range for this assay has not been established for patients with an unknown legal sex. Please refer to the laboratory test catalog for established sex-specific reference intervals. Current interpretive data was last revised on 2023. Hct 34.6(L) 38.9 - 50.3 % [facility] Plt 239 150 - 400 K/cumm [facility] MPV 9.6 9.1 - 12.3 fL [facility] RBC 4.05(L) 4.30 - 5.80 M/cumm [facility] Comment: Interpretive Data A reference range for this assay has not been established for patients with an unknown legal sex. Please refer to the laboratory test catalog for established sex-specific reference intervals. Current interpretive data was last revised on 2023. MCV 85.4 81.3 - 96.4 fL [facility] MCH 27.4 27.1 - 33.3 pg [facility] MCHC 32.1(L) 32.3 - 35.7 g/dL [facility] RDW CV 14.3 11.1 - 14.9 % [facility] RDW SD 42.3 35.7 - 48.1 fL [facility] NRBC abs 0.00 0.00 - 0.01 K/cumm [facility] Blood 03/20/2023 10:5 5 PM CDT 03/21/2023 12:06 AM CDT us Josephine JARAMILLO LAB BLOOD ORDERABLES Shilpi l Result Performing Organization Address City/[facility]/ZIP Co de Phone Number [facility] [address] [place] [address] * POCT glucose (03/20/2023 9:00 PM CDT) Glucose, POC 152 70 - 199 mg/dL Blood 03/20/2023 9:00 PM CDT 03/20/2023 9:00 PM CDT Evy Chong MD LAB POCT ORDERA BLES - DEVICE Final Result Performing Organization Address City/[facility] Co de Phone Number [facility] [place] [address] [place] [address] * POCT glucose (03/20/2023 5:37 PM CDT) Glucose, POC 158 70 - 199 mg/dL Blood 03/20/2023 5:37 PM CDT 03/20/2023 5:37 PM CDT Evy Chong MD LAB POCT ORDERA BLES - DEVICE Final Result Performing Organization Address City/[facility] Co de Phone Number [facility] [place] [address] * (ABNORMAL) POCT glucose (03/20/2023 12:24 PM CDT) Glucose, POC 257(H) 70 - 199 mg/dL Blood 03/20/2023 12:2 4 PM CDT 03/20/2023 12:24 PM CDT Evy Chong MD LAB POCT ORDERA BLES - DEVICE Final Result Performing Organization Address City/[facility] Co de Phone Number [facility] [place] [address] * POCT glucose (03/20/2023 8:23 AM CDT) Glucose, POC 176 70 - 199 mg/dL Blood 03/20/2023 8:23 AM CDT 03/20/2023 8:23 AM CDT Evy Chong MD LAB POCT ORDERA BLES - DEVICE Final Result Performing Organization Address [facility] de Phone Number [facility] [place] [address] [place] [address] * POCT glucose (03/19/2023 9:14 PM CDT) Glucose, POC 149 70 - 199 mg/dL Blood 03/19/2023 9:14 PM CDT 03/19/2023 9:14 PM CDT Evy Chong MD LAB POCT ORDERA BLES - DEVICE Final Result Performing Organization Address [facility] de Phone Number [facility] [address] [place] [address] * POCT glucose (03/19/2023 6:00 PM CDT) Glucose, POC 159 70 - 199 mg/dL Blood 03/19/2023 6:00 PM CDT 03/19/2023 6:00 PM CDT Evy Chong MD LAB POCT ORDERA BLES - DEVICE Final Result Performing Organization Address [facility] de Phone Number [facility] [address] [place] [address] * POCT glucose (03/19/2023 2:06 PM CDT) Glucose, POC 148 70 - 199 mg/dL Blood 03/19/2023 2:06 PM CDT 03/19/2023 2:[address] [facility] Evy Chong MD LAB POCT ORDERA BLES - DEVICE Final Result Performing Organization Address [facility] de Phone Number [facility] [address] [place] [address] * POCT glucose (03/19/2023 8:29 AM CDT) Glucose, POC 168 70 - 199 mg/dL Blood 03/19/2023 8:29 AM CDT 03/19/2023 8:29 AM CDT Evy Chong MD LAB POCT ORDERA BLES - DEVICE Final Result Performing Organization Address [facility] [place] [address] * eGFR (03/18/2023 10:07 PM CDT) eGFR [...] JARAMILLO LAB BLOOD ORDERABLES Shilpi montano Result Performing Organization Address City/State/[facility] Co de Phone Number [facility] [place] [address] * Differential, auto (03/18/2023 10:07 PM CDT) Pathologist [facility] Neutrophil abs 5.8 1.7 - 6.5 K/cumm Imm gran abs 0.1 0.0 - 0.1 K/cumm [facility] Lymphocyte abs 3.0 0.8 - 3.3 K/cumm [facility] Monocyte abs 0.7 0.2 - 0.8 K/cumm [facility] Eosinophil abs 0.5 0.0 - 0.5 K/cumm [facility] Basophil abs 0.0 0.0 - 0.1 K/cumm [facility] Neutrophil pct 57.8 % [facility] Comment: Interpretive Data Percent cell count reference ranges are not reported, since discordance with absolute values may lead to misinterpretation of CBC data. Current Interpretive Data was last revised on 2017. Imm gran pct 0.5 % [facility] Comment: Interpretive Data Percent cell count reference ranges are not reported, since discordance with absolute values may lead to misinterpretation of CBC data. Current Interpretive Data was last revised on 2017. Lymphocyte pct 29.8 % [facility] Comment: Interpretive Data Percent cell count reference ranges are not reported, since discordance with absolute values may lead to misinterpretation of CBC data. Current Interpretive Data was last revised on 2017. Monocyte pct 6.8 % [facility] Comment: Interpretive Data Percent cell count reference ranges are not reported, since discordance with absolute values may lead to misinterpretation of CBC data. Current Interpretive Data was last revised on 2017. Eosinophil pct 4.8 % [facility] Comment: Interpretive Data Percent cell count reference ranges are not reported, since discordance with absolute values may lead to misinterpretation of CBC data. Current Interpretive Data was last revised on 2017. Basophil pct 0.3 % [facility] Comment: Interpretive Data Percent cell count reference ranges are not reported, since discordance with absolute values may lead to misinterpretation of CBC data. Current Interpretive Data was last revised on 2017. Blood 03/18/2023 10:0 7 PM CDT 03/18/2023 11:24 PM CDT Josephine JARAMILLO LAB BLOOD ORDERABLES Shilpi l Result [facility] [place] [address] * Basic metabolic panel (03/18/2023 10:07 PM CDT) Sodium 140 135 - 145 mmol/L Potassium, pl 3.9 3.3 - 4.9 mmol/L [facility] Chloride 103 97 - 110 mmol/L [facility] CO2 28 22 - 32 mmol/L [facility] Anion gap 9 2 - 15 mmol/L [facility] BUN 11 6 - 25 mg/dL [facility] Creatinine 0.83 0.80 - 1.30 mg/dL [facility] Glucose 138 70 - 199 mg/dL [facility] Comment: Interpretive Data Fasting glucose >/= 126 [...] 2022. Calcium 8.7 8.5 - 10.3 mg/dL [facility] Blood 03/18/2023 10:0 7 PM CDT 03/18/2023 11:24 PM CDT Josephine JARAMILLO LAB BLOOD ORDERABLES Shilpi montano Result [facility] [place] [address] * (ABNORMAL) CBC with auto differential (03/18/2023 10:07 PM CDT) [facility] WBC 10.0(H) 3.8 - 9.9 K/cumm Hgb 10.3(L) 13.0 - 17.5 g/dL [facility] Hct 31.9(L) 38.9 - 50.3 % [facility] Plt 273 150 - 400 K/cumm [facility] MPV 9.6 9.1 - 12.3 fL [facility] RBC 3.78(L) 4.30 - 5.80 M/cumm [facility] Comment: Interpretive Data A reference range for this assay has not been established for patients with an unknown legal sex. Please refer to the laboratory test catalog for established sex-specific reference intervals. Current interpretive data was last revised on 2023. MCV 84.4 81.3 - 96.4 fL [facility] MCH 27.2 27.1 - 33.3 pg [facility] MCHC 32.3 32.3 - 35.7 g/dL [facility] RDW CV 13.5 11.1 - 14.9 % [facility] RDW SD 39.8 35.7 - 48.1 fL [facility] NRBC abs 0.00 0.00 - 0.01 K/cumm [facility] Blood 03/18/2023 10:0 7 PM CDT 03/18/2023 11:24 PM CDT Josephine JARAMILLO LAB BLOOD ORDERABLES Shilpi l Result Performing Organization Address City/[facility] Co de Phone Number [facility] Department [place] [address] [place] [address] * Type and screen (03/18/2023 10:07 PM CDT) ABO Rh B Negative Keenan, indirect Negative [facility] Blood 03/18/2023 10:0 7 PM CDT 03/18/2023 11:24 PM CDT Narrative [facility] - 03/19/2023 12:13 AM CDT Has the patient had Daratumumab or Isatuximab in the past 6 months?->Unknown Matheus JARAMILLO LAB BLOOD BANK TEST ORDERAB LES Final Result [facility] [place] [address] [place] [address] * POCT glucose (03/18/2023 9:59 PM CDT) Glucose, POC 131 70 - 199 mg/dL Blood 03/18/2023 9:59 PM CDT 03/18/2023 9:59 PM CDT Evy Chong MD LAB POCT ORDERA BLES - DEVICE Final Result Performing Organization Address [facility] Co de Phone Number [facility] [place] [address] * POCT glucose (03/18/2023 6:11 PM CDT) Glucose, POC 142 70 - 199 mg/dL Blood 03/18/2023 6:11 PM CDT 03/18/2023 6:11 PM CDT Evy Chong MD LAB POCT ORDERA BLES - DEVICE Final Result Performing Organization Address [facility] de Phone Number [facility] [place] [address] * POCT glucose (03/18/2023 1:17 PM CDT) Glucose, POC 191 70 - 199 mg/dL Blood 03/18/2023 1:17 PM CDT 03/18/2023 1:17 PM CDT Evy Chong MD LAB POCT ORDERA BLES - DEVICE Final Result Performing Organization Address [facility] de Phone Number [facility] [place] [address] [place] [address] * POCT glucose (03/18/2023 8:32 AM CDT) Glucose, POC 156 70 - 199 mg/dL Blood 03/18/2023 8:32 AM CDT 03/18/2023 8:32 AM CDT Evy Chong MD LAB POCT ORDERA BLES - DEVICE Final Result Performing Organization Address [facility] de Phone Number [facility] Department [place] [address] * (ABNORMAL) Hepatic function panel (03/17/2023 10:10 PM CDT) Pathologist [facility] Bilirubin, total 0.2 0.1 - 1.2 mg/dL Bilirubin, direct <0.2 0.1 - 0.3 mg/dL [facility] Protein, pl 6.0(L) 6.5 - 8.5 g/dL [facility] Albumin 3.0(L) 3.5 - 5.0 g/dL [facility] Alk phos 68 40 - 130 Units/L [facility] ALT 11 7 - 55 Units/L [facility] AST 23 10 - 50 Units/L [facility] Blood 03/17/2023 10:1 0 PM CDT 03/17/2023 10:52 PM CDT [facility] LAB BLOOD ORDER MARA Final Result Performing Organization Address [facility] de Phone Number [facility] Department [place] [address] * eGFR (03/17/2023 10:10 PM CDT) Pathologist [facility] eGFR >90 90 - 130 mL/min/1. 73 [...] JARAMILLO LAB BLOOD ORDERABLES Shilpi montano Result [facility] [place] [address] * Differential, auto (03/17/2023 10:10 PM CDT) Neutrophil abs 5.2 1.7 - 6.5 K/cumm Imm gran abs 0.1 0.0 - 0.1 K/cumm [facility] Lymphocyte abs 2.7 0.8 - 3.3 K/cumm [facility] Monocyte abs 0.7 0.2 - 0.8 K/cumm [facility] Eosinophil abs 0.4 0.0 - 0.5 K/cumm [facility] Basophil abs 0.0 0.0 - 0.1 K/cumm [facility] Neutrophil pct 57.3 % [facility] Comment: Interpretive Data Percent cell count reference ranges are not reported, since discordance with absolute values may lead to misinterpretation of CBC data. Current Interpretive Data was last revised on 2017. Imm gran pct 0.6 % [facility] Comment: Interpretive Data Percent cell count reference ranges are not reported, since discordance with absolute values may lead to misinterpretation of CBC data. Current Interpretive Data was last revised on 2017. Lymphocyte pct 29.9 % [facility] Comment: Interpretive Data Percent cell count reference ranges are not reported, since discordance with absolute values may lead to misinterpretation of CBC data. Current Interpretive Data was last revised on 2017. Monocyte pct 7.7 % [facility] Comment: Interpretive Data Percent cell count reference ranges are not reported, since discordance with absolute values may lead to misinterpretation of CBC data. Current Interpretive Data was last revised on 2017. Eosinophil pct 4.3 % [facility] Comment: Interpretive Data Percent cell count reference ranges are not reported, since discordance with absolute values may lead to misinterpretation of CBC data. Current Interpretive Data was last revised on 2017. Basophil pct 0.2 % [facility] Comment: Interpretive Data Percent cell count reference ranges are not reported, since discordance with absolute values may lead to misinterpretation of CBC data. Current Interpretive Data was last revised on 2017. Blood 03/17/2023 10:1 0 PM CDT 03/17/2023 11:01 PM CDT Josephine JARAMILLO LAB BLOOD ORDERABLES Shilpi l Result [facility] [place] [address] * Basic metabolic panel (03/17/2023 10:10 PM CDT) Sodium 139 135 - 145 mmol/L Potassium, pl 3.9 3.3 - 4.9 mmol/L [facility] Chloride 101 97 - 110 mmol/L [facility] CO2 29 22 - 32 mmol/L [facility] Anion gap 9 2 - 15 mmol/L [facility] BUN 13 6 - 25 mg/dL [facility] Creatinine 0.82 0.80 - 1.30 mg/dL [facility] Glucose 163 70 - 199 mg/dL [facility] Comment: Interpretive Data Fasting glucose >/= 126 [...] 2022. Calcium 8.7 8.5 - 10.3 mg/dL [facility] Blood 03/17/2023 10:1 0 PM CDT 03/17/2023 10:52 PM CDT Josephine JARAMILLO LAB BLOOD ORDERABLES Shilpi montano Result [facility] [place] [address] * (ABNORMAL) CBC with auto differential (03/17/2023 10:10 PM CDT) [facility] WBC 9.1 3.8 - 9.9 K/cumm Hgb 10.0(L) 13.0 - 17.5 g/dL [facility] Hct 31.2(L) 38.9 - 50.3 % [facility] Plt 235 150 - 400 K/cumm [facility] MPV 9.4 9.1 - 12.3 fL [facility] RBC 3.70(L) 4.30 - 5.80 M/cumm [facility] Comment: Interpretive Data A reference range for this assay has not been established for patients with an unknown legal sex. Please refer to the laboratory test catalog for established sex-specific reference intervals. Current interpretive data was last revised on 2023. MCV 84.3 81.3 - 96.4 fL [facility] MCH 27.0(L) 27.1 - 33.3 pg [facility] MCHC 32.1(L) 32.3 - 35.7 g/dL [facility] RDW CV 13.2 11.1 - 14.9 % [facility] RDW SD 39.0 35.7 - 48.1 fL [facility] NRBC abs 0.00 0.00 - 0.01 K/cumm [facility] Blood 03/17/2023 10:1 0 PM CDT 03/17/2023 11:01 PM CDT Josephine JARAMILLO LAB BLOOD ORDERABLES Shilpi l Result Performing Organization Address [facility] Co de Phone Number [facility] [place] [address] * (ABNORMAL) POCT glucose (03/17/2023 9:22 PM CDT) Glucose, POC 205(H) 70 - 199 mg/dL Blood 03/17/2023 9:22 PM CDT 03/17/2023 9:22 PM CDT Evy Chong MD LAB POCT ORDERA BLES - DEVICE Final Result Performing Organization Address [facility] de Phone Number [facility] [place] [address] * POCT glucose (03/17/2023 6:24 PM CDT) Glucose, POC 166 70 - 199 mg/dL Blood 03/17/2023 6:24 PM CDT 03/17/2023 6:24 PM CDT Evy Chong MD LAB POCT ORDERA BLES - DEVICE Final Result Performing Organization Address [facility] de Phone Number [facility] [place] [address] * POCT glucose (03/17/2023 12:47 PM CDT) Glucose, POC 142 70 - 199 mg/dL Blood 03/17/2023 12:4 7 PM CDT 03/17/2023 12:47 PM CDT Evy Chong MD LAB POCT ORDERA BLES - DEVICE Final Result Performing Organization Address City/[facility] Co de Phone Number [facility] [place] [address] [place] [address] * POCT glucose (03/17/2023 9:09 AM CDT) Glucose, POC 175 70 - 199 mg/dL [facility] Blood 03/17/2023 9:09 AM CDT 03/17/2023 9:09 AM CDT Evy Chong MD LAB POCT ORDERA BLES - DEVICE Final Result Performing Organization Address [facility] de Phone Number [facility] [place] [address] * eGFR (03/16/2023 8:56 PM CDT) eGFR >90 90 - 130 mL/min/1. 73 m2 [facility] Comment: Interpretive Data Reference Interval Normal ?>/= [...] JARAMILLO LAB BLOOD ORDERABLES Shilpi dusty Result [facility] [place] [address] * Differential, auto (03/16/2023 8:56 PM CDT) Pathologist [facility] Neutrophil abs 6.3 1.7 - 6.5 K/cumm [facility] Imm gran abs 0.1 0.0 - 0.1 K/cumm [facility] Lymphocyte abs 2.7 0.8 - 3.3 K/cumm [facility] Monocyte abs 0.7 0.2 - 0.8 K/cumm [facility] Eosinophil abs 0.3 0.0 - 0.5 K/cumm [facility] Basophil abs 0.0 0.0 - 0.1 K/cumm [facility] Neutrophil pct 62.4 % [facility] Comment: Interpretive Data Percent cell count reference ranges are not reported, since discordance with absolute values may lead to misinterpretation of CBC data. Current Interpretive Data was last revised on 2017. Imm gran pct 0.6 % [facility] Comment: Interpretive Data Percent cell count reference ranges are not reported, since discordance with absolute values may lead to misinterpretation of CBC data. Current Interpretive Data was last revised on 2017. Lymphocyte pct 26.9 % [facility] Comment: Interpretive Data Percent cell count reference ranges are not reported, since discordance with absolute values may lead to misinterpretation of CBC data. Current Interpretive Data was last revised on 2017. Monocyte pct 7.2 % [facility] Comment: Interpretive Data Percent cell count reference ranges are not reported, since discordance with absolute values may lead to misinterpretation of CBC data. Current Interpretive Data was last revised on 2017. Eosinophil pct 2.6 % [facility] Comment: Interpretive Data Percent cell count reference ranges are not reported, since discordance with absolute values may lead to misinterpretation of CBC data. Current Interpretive Data was last revised on 2017. Basophil pct 0.3 % [facility] Comment: Interpretive Data Percent cell count reference ranges are not reported, since discordance with absolute values may lead to misinterpretation of CBC data. Current Interpretive Data was last revised on 2017. Blood 03/16/2023 8:56 PM CDT 03/16/2023 9:54 PM CDT Josephine JARAMILLO LAB BLOOD ORDERABLES Shilpi montano Result [facility] [place] [address] * Basic metabolic panel (03/16/2023 8:56 PM CDT) Sodium 139 135 - 145 mmol/L [facility] Potassium, pl 4.2 3.3 - 4.9 mmol/L [facility] Chloride 101 97 - 110 mmol/L [facility] CO2 29 22 - 32 mmol/L [facility] Anion gap 9 2 - 15 mmol/L [facility] BUN 8 6 - 25 mg/dL [facility] Creatinine 0.92 0.80 - 1.30 mg/dL [facility] Glucose 158 70 - 199 mg/dL [facility] Comment: Interpretive Data Fasting glucose >/= 126 [...] 2022. Calcium 8.6 8.5 - 10.3 mg/dL [facility] Blood 03/16/2023 8:56 PM CDT 03/16/2023 9:54 PM CDT Josephine JARAMILLO LAB BLOOD ORDERABLES Shilpi montano Result [facility] [place] [address] * (ABNORMAL) CBC with auto differential (03/16/2023 8:56 PM CDT) [facility] WBC 10.0(H) 3.8 - 9.9 K/cumm [facility] Hgb 10.1(L) 13.0 - 17.5 g/dL [facility] Hct 31.3(L) 38.9 - 50.3 % [facility] Plt 244 150 - 400 K/cumm [facility] MPV 9.3 9.1 - 12.3 fL [facility] RBC 3.80(L) 4.30 - 5.80 M/cumm [facility] Comment: Interpretive Data A reference range for this assay has not been established for patients with an unknown legal sex. Please refer to the laboratory test catalog for established sex-specific reference intervals. Current interpretive data was last revised on 2023. MCV 82.4 81.3 - 96.4 fL [facility] MCH 26.6(L) 27.1 - 33.3 pg [facility] MCHC 32.3 32.3 - 35.7 g/dL [facility] RDW CV 13.2 11.1 - 14.9 % [facility] RDW SD 38.9 35.7 - 48.1 fL [facility] NRBC abs 0.00 0.00 - 0.01 K/cumm [facility] Blood 03/16/2023 8:56 PM CDT 03/16/2023 9:54 PM CDT Josephine JARAMILLO LAB BLOOD ORDERABLES Shilpi l Result Performing Organization Address City/[facility]/ZIP Co de Phone Number [facility] [place] [address] * POCT glucose (03/16/2023 8:47 PM CDT) Glucose, POC 167 70 - 199 mg/dL [facility] Blood 03/16/2023 8:47 PM CDT 03/16/2023 8:47 PM CDT Neno Lei MD LAB POCT ORDERABLES - DEV ICE Final Result Performing Organization Address [facility] Co de Phone Number [facility] [place] [address] * POCT glucose (03/16/2023 6:21 PM CDT) Glucose, POC 166 70 - 199 mg/dL [facility] Blood 03/16/2023 6:21 PM CDT 03/16/2023 6:21 PM CDT Neno Lei MD LAB POCT ORDERABLES - DEV ICE Final Result Performing Organization Address City/[facility] Co de Phone Number [facility] [place] [address] * (ABNORMAL) Albumin Creatinine Ratio, Urine (03/16/2023 4:21 PM CDT) Albumin Ur 39.3 mg/L [facility] Comment: Interpretive Data No reference range established. Current interpretive data was last revised 2018. Creatinine Ur 88.9 mg/dL [facility] Comment: Interpretive Data No reference range established. Current interpretive data was last revised 2018. Albumin Creatinine Ratio, Ur 44(H) 1 - 29 mg/g [facility] Urine 03/16/2023 4:21 PM CDT 03/16/2023 6:01 PM CDT Luis Daniel Hanna NP LAB URINE ORDERABLES Fin al Result Performing Organization Address City/[facility] Co de Phone Number [facility] [place] [address] * POCT glucose (03/16/2023 2:19 PM CDT) Glucose, POC 162 70 - 199 mg/dL [facility] Blood 03/16/2023 2:19 PM CDT 03/16/2023 2:19 PM CDT Neno Lei MD LAB POCT ORDERABLES - DEV ICE Final Result Performing Organization Address [facility] Co de Phone Number [facility] Department [place] [address] * POCT glucose (03/16/2023 9:06 AM CDT) Glucose, POC 178 70 - 199 mg/dL [facility] Blood 03/16/2023 9:06 AM CDT 03/16/2023 9:06 AM CDT Nneo Lei MD LAB POCT ORDERABLES - DEV ICE Final Result Performing Organization Address City/[facility] Co de Phone Number [facility] [address] [place] [address] * POCT glucose (03/15/2023 9:01 PM CDT) Glucose, POC 147 70 - 199 mg/dL [facility] Blood 03/15/2023 9:01 PM CDT 03/15/2023 9:01 PM CDT us Neno Lei MD LAB POCT ORDERABLES - DEV ICE Final Result Performing Organization Address [facility] Co de Phone Number [facility] Department [place] [address] [place] [address] * eGFR (03/15/2023 7:38 PM CDT) eGFR >90 90 - 130 mL/min/1. 73 m2 [facility] Comment: Interpretive Data Reference Interval Normal ?>/= [...] 7:38 PM CDT 03/15/2023 8:16 PM CDT us Josephine JARAMILLO LAB BLOOD ORDERABLES Shilpi l Result Performing Organization Address [facility] Co de Phone Number [facility] Department [place] [address] [place] [address] * Differential, auto (03/15/2023 7:38 PM CDT) Neutrophil abs 5.1 1.7 - 6.5 K/cumm [facility] Imm gran abs 0.1 0.0 - 0.1 K/cumm [facility] Lymphocyte abs 2.3 0.8 - 3.3 K/cumm [facility] Monocyte abs 0.7 0.2 - 0.8 K/cumm [facility] Eosinophil abs 0.3 0.0 - 0.5 K/cumm [facility] Basophil abs 0.0 0.0 - 0.1 K/cumm [facility] Neutrophil pct 60.2 % [facility] Comment: Interpretive Data Percent cell count reference ranges are not reported, since discordance with absolute values may lead to misinterpretation of CBC data. Current Interpretive Data was last revised on 2017. Imm gran pct 0.7 % [facility] Comment: Interpretive Data Percent cell count reference ranges are not reported, since discordance with absolute values may lead to misinterpretation of CBC data. Current Interpretive Data was last revised on 2017. Lymphocyte pct 26.9 % [facility] Comment: Interpretive Data Percent cell count reference ranges are not reported, since discordance with absolute values may lead to misinterpretation of CBC data. Current Interpretive Data was last revised on 2017. Monocyte pct 8.5 % [facility] Comment: Interpretive Data Percent cell count reference ranges are not reported, since discordance with absolute values may lead to misinterpretation of CBC data. Current Interpretive Data was last revised on 2017. Eosinophil pct 3.3 % [facility] Comment: Interpretive Data Percent cell count reference ranges are not reported, since discordance with absolute values may lead to misinterpretation of CBC data. Current Interpretive Data was last revised on 2017. Basophil pct 0.4 % [facility] Comment: Interpretive Data Percent cell count reference ranges are not reported, since discordance with absolute values may lead to misinterpretation of CBC data. Current Interpretive Data was last revised on 2017. Blood 03/15/2023 7:38 PM CDT 03/15/2023 8:15 PM CDT Josephine Joe JARAMILLO LAB BLOOD ORDERABLES Shilpi l Result Performing Organization Address City/[facility]/ZIP Co de Phone Number [facility] Department [place] [address] * Basic metabolic panel (03/15/2023 7:38 PM CDT) Pathologist [facility] Sodium 138 135 - 145 mmol/L [facility] Potassium, pl 4.2 3.3 - 4.9 mmol/L [facility] Chloride 102 97 - 110 mmol/L [facility] CO2 28 22 - 32 mmol/L [facility] Anion gap 8 2 - 15 mmol/L [facility] BUN 9 6 - 25 mg/dL [facility] Creatinine 0.83 0.80 - 1.30 mg/dL [facility] Glucose 186 70 - 199 mg/dL [facility] Comment: Interpretive Data Fasting glucose >/= 126 [...] 2022. Calcium 8.5 8.5 - 10.3 mg/dL [facility] Blood 03/15/2023 7:38 PM CDT 03/15/2023 8:16 PM CDT Josephine JARAMILLO LAB BLOOD ORDERABLES Shilpi l Result Performing Organization Address City/[facility]/ZIP Co de Phone Number [facility] Department [place] [address] * (ABNORMAL) CBC with auto differential (03/15/2023 7:38 PM CDT) Pathologist [facility] WBC 8.5 3.8 - 9.9 K/cumm [facility] Hgb 9.9(L) 13.0 - 17.5 g/dL [facility] Hct 30.5(L) 38.9 - 50.3 % [facility] Plt 214 150 - 400 K/cumm [facility] MPV 9.5 9.1 - 12.3 fL [facility] RBC 3.67(L) 4.30 - 5.80 M/cumm [facility] MCV 83.1 81.3 - 96.4 fL [facility] MCH 27.0(L) 27.1 - 33.3 pg [facility] MCHC 32.5 32.3 - 35.7 g/dL [facility] RDW CV 13.2 11.1 - 14.9 % [facility] RDW SD 39.6 35.7 - 48.1 fL [facility] NRBC abs 0.00 0.00 - 0.01 K/cumm [facility] Blood 03/15/2023 7:3 8 PM CDT 03/15/2023 8:15 PM CDT Josephine JARAMILLO LAB BLOOD ORDERABLES Shilpi l Result [facility] [place] [address] * Type and screen (03/15/2023 7:38 PM CDT) [facility] [place], indirect Negative [facility] ABO Rh B Negative [facility] Blood 03/15/2023 7:38 PM CDT 03/15/2023 8:18 PM CDT Narrative [facility] - 03/15/2023 9:10 PM CDT Has the patient had Daratumumab or Isatuximab in the past 6 months?->Unknown Matheus JARAMILLO LAB BLOOD BANK TEST ORDERAB LES Final Result Performing Organization Address City/[facility]/ZIP [place] [address] * (ABNORMAL) POCT glucose (03/15/2023 5:06 PM CDT) Glucose, POC 208(H) 70 - 199 mg/dL [facility] Blood 03/15/2023 5:06 PM CDT 03/15/2023 5:06 PM CDT us Neno Lei MD LAB POCT ORDERABLES - DEV ICE Final Result Performing Organization Address City/[facility]/[place] [address] * POCT glucose (03/15/2023 12:14 PM CDT) Glucose, POC 176 70 - 199 mg/dL [facility] Blood 03/15/2023 12:1 4 PM CDT 03/15/2023 12:14 PM CDT us Neno Lei MD LAB POCT ORDERABLES - DEV ICE Final Result Performing Organization Address City/[facility]/[place] [address] * POCT glucose (03/15/2023 7:35 AM CDT) Glucose, POC 194 70 - 199 mg/dL [facility] Blood 03/15/2023 7:35 AM CDT 03/15/2023 7:35 AM CDT us Neno Lei MD LAB POCT ORDERABLES - DEV ICE Final Result Performing Organization Address City/[facility]/ZIP Co de Phone Number [facility] [place] [address] * POCT glucose (03/14/2023 7:52 PM CDT) Glucose, POC 130 70 - 199 mg/dL [facility] Blood 03/14/2023 7:52 PM CDT 03/14/2023 7:52 PM CDT Neno Lei MD LAB POCT ORDERABLES - DEV ICE Final Result [facility] [place] [address] * eGFR (03/14/2023 7:41 PM CDT) Pathologist [facility] eGFR >90 90 - 130 mL/min/1. 73 m2 [facility] Comment: Interpretive Data Reference Interval Normal ?>/= [...] Josephine Joe JARAMILLO LAB BLOOD ORDERABLES Shilpi montano Result [facility] Department [place] [address] * Differential, auto (03/14/2023 7:41 PM CDT) Neutrophil abs 6.0 1.7 - 6.5 K/cumm [facility] Imm gran abs 0.1 0.0 - 0.1 K/cumm [facility] Lymphocyte abs 2.5 0.8 - 3.3 K/cumm [facility] Monocyte abs 0.8 0.2 - 0.8 K/cumm [facility] Eosinophil abs 0.3 0.0 - 0.5 K/cumm [facility] Basophil abs 0.0 0.0 - 0.1 K/cumm [facility] Neutrophil pct 61.8 % [facility] Comment: Interpretive Data Percent cell count reference ranges are not reported, since discordance with absolute values may lead to misinterpretation of CBC data. Current Interpretive Data was last revised on 2017. Imm gran pct 0.7 % [facility] Comment: Interpretive Data Percent cell count reference ranges are not reported, since discordance with absolute values may lead to misinterpretation of CBC data. Current Interpretive Data was last revised on 2017. Lymphocyte pct 26.1 % [facility] Comment: Interpretive Data Percent cell count reference ranges are not reported, since discordance with absolute values may lead to misinterpretation of CBC data. Current Interpretive Data was last revised on 2017. Monocyte pct 7.8 % [facility] Comment: Interpretive Data Percent cell count reference ranges are not reported, since discordance with absolute values may lead to misinterpretation of CBC data. Current Interpretive Data was last revised on 2017. Eosinophil pct 3.3 % [facility] Comment: Interpretive Data Percent cell count reference ranges are not reported, since discordance with absolute values may lead to misinterpretation of CBC data. Current Interpretive Data was last revised on 2017. Basophil pct 0.3 % [facility] Comment: Interpretive Data Percent cell count reference ranges are not reported, since discordance with absolute values may lead to misinterpretation of CBC data. Current Interpretive Data was last revised on 2017. Blood 03/14/2023 7:41 PM CDT 03/14/2023 8:20 PM CDT us Josephine JARAMILLO LAB BLOOD ORDERABLES Shilpi l Result [facility] [place] [address] * (ABNORMAL) Basic metabolic panel (03/14/2023 7:41 PM CDT) Pathologist [facility] Sodium 139 135 - 145 mmol/L [facility] Potassium, pl 4.0 3.3 - 4.9 mmol/L [facility] Chloride 100 97 - 110 mmol/L [facility] CO2 30 22 - 32 mmol/L [facility] Anion gap 9 2 - 15 mmol/L [facility] BUN 5(L) 6 - 25 mg/dL [facility] Creatinine 0.72(L) 0.80 - 1.30 mg/dL [facility] Glucose 137 70 - 199 mg/dL [facility] Comment: Interpretive Data Fasting glucose >/= 126 [...] 2022. Calcium 8.8 8.5 - 10.3 mg/dL [facility] Blood 03/14/2023 7:41 PM CDT 03/14/2023 8:20 PM CDT Josephine JARAMILLO LAB BLOOD ORDERABLES Shilpi l Result Performing Organization Address [facility]/ZIP Co de Phone Number [facility] [place] [address] [place] [address] * (ABNORMAL) CBC with auto differential (03/14/2023 7:41 PM CDT) Pathologist [facility] WBC 9.7 3.8 - 9.9 K/cumm [facility] Hgb 10.9(L) 13.0 - 17.5 g/dL [facility] Hct 33.2(L) 38.9 - 50.3 % [facility] Plt 228 150 - 400 K/cumm [facility] MPV 9.2 9.1 - 12.3 fL [facility] RBC 3.96(L) 4.30 - 5.80 M/cumm [facility] MCV 83.8 81.3 - 96.4 fL [facility] MCH 27.5 27.1 - 33.3 pg [facility] MCHC 32.8 32.3 - 35.7 g/dL [facility] RDW CV 12.9 11.1 - 14.9 % [facility] RDW SD 39.1 35.7 - 48.1 fL [facility] NRBC abs 0.00 0.00 - 0.01 K/cumm [facility] Blood 03/14/2023 7:41 PM CDT 03/14/2023 8:20 PM CDT Josephine JARAMILLO LAB BLOOD ORDERABLES Shilpi l Result [facility] Department [place] [address] * POCT glucose (03/14/2023 5:44 PM CDT) Glucose, POC 137 70 - 199 mg/dL [facility] Blood 03/14/2023 5:44 PM CDT 03/14/2023 5:44 PM CDT Neno Lei MD LAB POCT ORDERABLES - DEV ICE Final Result Performing Organization Address [facility] de Phone Number [facility] [place] [address] [place] [address] * POCT glucose (03/14/2023 1:43 PM CDT) Glucose, POC 162 70 - 199 mg/dL [facility] Blood 03/14/2023 1:43 PM CDT 03/14/2023 1:43 PM CDT Neno Lei MD LAB POCT ORDERABLES - DEV ICE Final Result Performing Organization Address [facility] de Phone Number [facility] [address] [place] [address] * POCT glucose (03/14/2023 8:38 AM CDT) Glucose, POC 177 70 - 199 mg/dL [facility] Blood 03/14/2023 8:38 AM CDT 03/14/2023 8:38 AM CDT Neno Lei MD LAB POCT ORDERABLES - DEV ICE Final Result Performing Organization Address [facility] [place] [address] * eGFR (03/13/2023 10:14 PM CDT) eGFR >90 90 - 130 mL/min/1. 73 m2 [facility] Comment: Interpretive Data Reference Interval Normal ?>/= [...] JARAMILLO LAB BLOOD ORDERABLES Shilpi montano Result [facility] [place] [address] * Differential, auto (03/13/2023 10:14 PM CDT) Neutrophil abs 4.9 1.7 - 6.5 K/cumm [facility] Imm gran abs 0.1 0.0 - 0.1 K/cumm [facility] Lymphocyte abs 2.5 0.8 - 3.3 K/cumm [facility] Monocyte abs 0.8 0.2 - 0.8 K/cumm [facility] Eosinophil abs 0.3 0.0 - 0.5 K/cumm [facility] Basophil abs 0.0 0.0 - 0.1 K/cumm [facility] Neutrophil pct 56.6 % [facility] Comment: Interpretive Data Percent cell count reference ranges are not reported, since discordance with absolute values may lead to misinterpretation of CBC data. Current Interpretive Data was last revised on 2017. Imm gran pct 1.5 % [facility] Comment: Interpretive Data Percent cell count reference ranges are not reported, since discordance with absolute values may lead to misinterpretation of CBC data. Current Interpretive Data was last revised on 2017. Lymphocyte pct 29.2 % [facility] Comment: Interpretive Data Percent cell count reference ranges are not reported, since discordance with absolute values may lead to misinterpretation of CBC data. Current Interpretive Data was last revised on 2017. Monocyte pct 8.8 % [facility] Comment: Interpretive Data Percent cell count reference ranges are not reported, since discordance with absolute values may lead to misinterpretation of CBC data. Current Interpretive Data was last revised on 2017. Eosinophil pct 3.6 % [facility] Comment: Interpretive Data Percent cell count reference ranges are not reported, since discordance with absolute values may lead to misinterpretation of CBC data. Current Interpretive Data was last revised on 2017. Basophil pct 0.3 % [facility] Comment: Interpretive Data Percent cell count reference ranges are not reported, since discordance with absolute values may lead to misinterpretation of CBC data. Current Interpretive Data was last revised on 2017. Blood 03/13/2023 10:1 4 PM CDT 03/13/2023 11:25 PM CDT Josephine JARAMILLO LAB BLOOD ORDERABLES Shilpi l Result [facility] Department [place] [address] * (ABNORMAL) Basic metabolic panel (03/13/2023 10:14 PM CDT) Sodium 139 135 - 145 mmol/L [facility] Potassium, pl 3.8 3.3 - 4.9 mmol/L [facility] Chloride 97 97 - 110 mmol/L [facility] CO2 34(H) 22 - 32 mmol/L [facility] Anion gap 8 2 - 15 mmol/L [facility] BUN 5(L) 6 - 25 mg/dL [facility] Creatinine 0.71(L) 0.80 - 1.30 mg/dL [facility] Glucose 147 70 - 199 mg/dL [facility] Comment: Interpretive Data Fasting glucose >/= 126 [...] 2022. Calcium 8.3(L) 8.5 - 10.3 mg/dL [facility] Blood 03/13/2023 10:1 4 PM CDT 03/13/2023 11:25 PM CDT Josephine JARAMILLO LAB BLOOD ORDERABLES Shilpi l Result [facility] [place] [address] * (ABNORMAL) CBC with auto differential (03/13/2023 10:14 PM CDT) WBC 8.7 3.8 - 9.9 K/cumm [facility] Hgb 10.4(L) 13.0 - 17.5 g/dL [facility] Hct 32.5(L) 38.9 - 50.3 % [facility] Plt 202 150 - 400 K/cumm [facility] MPV 9.0(L) 9.1 - 12.3 fL [facility] RBC 3.81(L) 4.30 - 5.80 M/cumm [facility] MCV 85.3 81.3 - 96.4 fL [facility] MCH 27.3 27.1 - 33.3 pg [facility] MCHC 32.0(L) 32.3 - 35.7 g/dL [facility] RDW CV 13.0 11.1 - 14.9 % [facility] RDW SD 40.0 35.7 - 48.1 fL [facility] NRBC abs 0.00 0.00 - 0.01 K/cumm [facility] Blood 03/13/2023 10:1 4 PM CDT 03/13/2023 11:25 PM CDT us Josephine JARAMILLO LAB BLOOD ORDERABLES Shilpi l Result Performing Organization Address City/[facility] Co de Phone Number [facility] [address] [place] [address] * POCT glucose (03/13/2023 7:53 PM CDT) Glucose, POC 143 70 - 199 mg/dL [facility] Blood 03/13/2023 7:5 3 PM CDT 03/13/2023 7:53 PM CDT Neno Lei MD LAB POCT ORDERABLES - DEV ICE Final Result Performing Organization Address [facility] Co de Phone Number [facility] Department [place] [address] [place] [address] * POCT glucose (03/13/2023 5:37 PM CDT) Glucose, POC 178 70 - 199 mg/dL [facility] Blood 03/13/2023 5:37 PM CDT 03/13/2023 5:37 PM CDT Neno Lei MD LAB POCT ORDERABLES - DEV ICE Final Result Performing Organization Address [facility] Co de Phone Number [facility] [address] [place] [address] * XR Wrist Left 3 or More [...] fracture. Electronically signed by: Juan Jeter MD us Josephine JARAMILLO IMG XR PROCEDURES Final R esult * POCT glucose (03/13/2023 1:26 PM CDT) Glucose, POC 195 70 - 199 mg/dL [facility] Glucose comment 1 Glu2: RN/MD Notified [facility] Blood 03/13/2023 1:26 PM CDT 03/13/2023 1:26 PM CDT Neno Lei MD LAB POCT ORDERABLES - DEV ICE Final Result [facility] Department [place] [address] * POCT glucose (03/13/2023 12:16 PM CDT) Glucose, POC 191 70 - 199 mg/dL [facility] Blood 03/13/2023 12:1 6 PM CDT 03/13/2023 12:16 PM CDT Neno Lei MD LAB POCT ORDERABLES - DEV ICE Final Result Performing Organization Address [facility] Co de Phone Number [facility] [place] [address] * POCT glucose (03/13/2023 8:26 AM CDT) Glucose, POC 154 70 - 199 mg/dL [facility] Blood 03/13/2023 8:26 AM CDT 03/13/2023 8:26 AM CDT Neno Lei MD LAB POCT ORDERABLES - DEV ICE Final Result Performing Organization Address [facility] de Phone Number [facility] [place] [address] * eGFR (03/12/2023 10:44 PM CDT) Pathologist [facility] eGFR >90 90 - 130 mL/min/1. 73 m2 [facility] Comment: Interpretive Data Reference Interval Normal ?>/= [...] JARAMILLO LAB BLOOD ORDERABLES Shilpi l Result [facility] [place] [address] * (ABNORMAL) Differential, auto (03/12/2023 10:44 PM CDT) Neutrophil abs 6.1 1.7 - 6.5 K/cumm [facility] Imm gran abs 0.2(H) 0.0 - 0.1 K/cumm [facility] Lymphocyte abs 2.4 0.8 - 3.3 K/cumm [facility] Monocyte abs 0.7 0.2 - 0.8 K/cumm [facility] Eosinophil abs 0.3 0.0 - 0.5 K/cumm [facility] Basophil abs 0.0 0.0 - 0.1 K/cumm [facility] Neutrophil pct 63.1 % [facility] Comment: Interpretive Data Percent cell count reference ranges are not reported, since discordance with absolute values may lead to misinterpretation of CBC data. Current Interpretive Data was last revised on 2017. Imm gran pct 1.7 % [facility] Comment: Interpretive Data Percent cell count reference ranges are not reported, since discordance with absolute values may lead to misinterpretation of CBC data. Current Interpretive Data was last revised on 2017. Lymphocyte pct 24.9 % [facility] Comment: Interpretive Data Percent cell count reference ranges are not reported, since discordance with absolute values may lead to misinterpretation of CBC data. Current Interpretive Data was last revised on 2017. Monocyte pct 7.1 % [facility] Comment: Interpretive Data Percent cell count reference ranges are not reported, since discordance with absolute values may lead to misinterpretation of CBC data. Current Interpretive Data was last revised on 2017. Eosinophil pct 2.8 % [facility] Comment: Interpretive Data Percent cell count reference ranges are not reported, since discordance with absolute values may lead to misinterpretation of CBC data. Current Interpretive Data was last revised on 2017. Basophil pct 0.4 % [facility] Comment: Interpretive Data Percent cell count reference ranges are not reported, since discordance with absolute values may lead to misinterpretation of CBC data. Current Interpretive Data was last revised on 2017. Blood 03/12/2023 10:4 4 PM CDT 03/12/2023 11:23 PM CDT Josephine JARAMILLO LAB BLOOD ORDERABLES Shilpi montano Result [facility] [place] [address] * (ABNORMAL) Basic metabolic panel (03/12/2023 10:44 PM CDT) Sodium 136 135 - 145 mmol/L [facility] Potassium, pl 3.8 3.3 - 4.9 mmol/L [facility] Chloride 98 97 - 110 mmol/L [facility] CO2 32 22 - 32 mmol/L [facility] Anion gap 6 2 - 15 mmol/L [facility] BUN 7 6 - 25 mg/dL [facility] Creatinine 0.65(L) 0.80 - 1.30 mg/dL [facility] Glucose 196 70 - 199 mg/dL [facility] Comment: Interpretive Data Fasting glucose >/= 126 [...] 2022. Calcium 8.0(L) 8.5 - 10.3 mg/dL [facility] Blood 03/12/2023 10:4 4 PM CDT 03/12/2023 11:24 PM CDT Josephine JARAMILLO LAB BLOOD ORDERABLES Shilpi l Result Performing Organization Address City/[facility] Co de Phone Number [facility] [place] [address] * (ABNORMAL) CBC with auto differential (03/12/2023 10:44 PM CDT) WBC 9.7 3.8 - 9.9 K/cumm [facility] Hgb 11.0(L) 13.0 - 17.5 g/dL [facility] Hct 33.8(L) 38.9 - 50.3 % [facility] Plt 226 150 - 400 K/cumm [facility] MPV 8.9(L) 9.1 - 12.3 fL [facility] RBC 4.02(L) 4.30 - 5.80 M/cumm [facility] MCV 84.1 81.3 - 96.4 fL [facility] MCH 27.4 27.1 - 33.3 pg [facility] MCHC 32.5 32.3 - 35.7 g/dL [facility] RDW CV 12.7 11.1 - 14.9 % [facility] RDW SD 38.6 35.7 - 48.1 fL [facility] NRBC abs 0.00 0.00 - 0.01 K/cumm [facility] Blood 03/12/2023 10:4 4 PM CDT 03/12/2023 11:23 PM CDT Josephine JARAMILLO LAB BLOOD ORDERABLES Shilpi l Result Performing Organization Address [facility] de Phone Number [facility] [place] [address] * Type and screen (03/12/2023 10:44 PM CDT) Keenan, indirect Negative [facility] ABO Rh B Negative [facility] Blood 03/12/2023 10:4 4 PM CDT 03/12/2023 11:12 PM CDT Narrative [facility] - 03/13/2023 12:37 AM CDT Has the patient had Daratumumab or Isatuximab in the past 6 months?->Unknown Matheus JARAMILLO LAB BLOOD BANK TEST ORDERAB LES Final Result Performing Organization Address [facility] de Phone Number [facility] [place] [address] * POCT glucose (03/12/2023 8:38 PM CDT) Glucose, POC 180 70 - 199 mg/dL [facility] Blood 03/12/2023 8:38 PM CDT 03/12/2023 8:38 PM CDT Neno Lei MD LAB POCT ORDERABLES - DEV ICE Final Result Performing Organization Address [facility] de Phone Number [facility] Department [place] [address] * POCT glucose (03/12/2023 4:56 PM CDT) Glucose, POC 174 70 - 199 mg/dL [facility] Blood 03/12/2023 4:56 PM CDT 03/12/2023 4:56 PM CDT us Neno Lei MD LAB POCT ORDERABLES - DEV ICE Final Result Performing Organization Address [facility] Co de Phone Number [facility] [address] [place] [address] * POCT glucose (03/12/2023 3:12 PM CDT) Glucose, POC 166 70 - 199 mg/dL [facility] Blood 03/12/2023 3:12 PM CDT 03/12/2023 3:12 PM CDT us Neno Lei MD LAB POCT ORDERABLES - DEV ICE Final Result Performing Organization Address [facility] [place] [address] * POCT glucose (03/12/2023 1:22 PM CDT) Glucose, POC 156 70 - 199 mg/dL [facility] Blood 03/12/2023 1:22 PM CDT 03/12/2023 1:22 PM CDT us Neno Lei MD LAB POCT ORDERABLES - DEV ICE Final Result Performing Organization Address [facility]/ZIP Co de Phone Number [facility] [address] [place] [address] * POCT glucose (03/12/2023 9:26 AM CDT) Glucose, POC 141 70 - 199 mg/dL [facility] Blood 03/12/2023 9:26 AM CDT 03/12/2023 9:26 AM CDT Result Lilibeth Lei MD LAB POCT ORDERABLES - DEV ICE Final Result Performing Organization Address City/[facility]/ZIP Co de Phone Number [facility] [address] [place] [address] * POCT glucose (03/12/2023 7:43 AM CDT) Glucose, POC 169 70 - 199 mg/dL [facility] Blood 03/12/2023 7:43 AM CDT 03/12/2023 7:43 AM CDT us Neno Lei MD LAB POCT ORDERABLES - DEV ICE Final Result [facility] [place] [address] * eGFR (03/11/2023 10:31 PM CDT) eGFR >90 90 - 130 mL/min/1. 73 m2 [facility] Comment: Interpretive Data Reference Interval Normal ?>/= [...] JARAMILLO LAB BLOOD ORDERABLES Shilpi dusty Result [facility] [place] [address] * (ABNORMAL) Differential, auto (03/11/2023 10:31 PM CDT) Neutrophil abs 4.6 1.7 - 6.5 K/cumm [facility] Imm gran abs 0.2(H) 0.0 - 0.1 K/cumm [facility] Lymphocyte abs 3.0 0.8 - 3.3 K/cumm [facility] Monocyte abs 0.7 0.2 - 0.8 K/cumm [facility] Eosinophil abs 0.3 0.0 - 0.5 K/cumm [facility] Basophil abs 0.0 0.0 - 0.1 K/cumm [facility] Neutrophil pct 52.0 % [facility] Comment: Interpretive Data Percent cell count reference ranges are not reported, since discordance with absolute values may lead to misinterpretation of CBC data. Current Interpretive Data was last revised on 2017. Imm gran pct 2.4 % [facility] Comment: Interpretive Data Percent cell count reference ranges are not reported, since discordance with absolute values may lead to misinterpretation of CBC data. Current Interpretive Data was last revised on 2017. Lymphocyte pct 33.8 % [facility] Comment: Interpretive Data Percent cell count reference ranges are not reported, since discordance with absolute values may lead to misinterpretation of CBC data. Current Interpretive Data was last revised on 2017. Monocyte pct 8.0 % [facility] Comment: Interpretive Data Percent cell count reference ranges are not reported, since discordance with absolute values may lead to misinterpretation of CBC data. Current Interpretive Data was last revised on 2017. Eosinophil pct 3.3 % [facility] Comment: Interpretive Data Percent cell count reference ranges are not reported, since discordance with absolute values may lead to misinterpretation of CBC data. Current Interpretive Data was last revised on 2017. Basophil pct 0.5 % [facility] Comment: Interpretive Data Percent cell count reference ranges are not reported, since discordance with absolute values may lead to misinterpretation of CBC data. Current Interpretive Data was last revised on 2017. Blood 03/11/2023 10:3 1 PM CDT 03/11/2023 11:57 PM CDT Josephine JARAMILLO LAB BLOOD ORDERABLES Shilpi dusty Result [facility] [place] [address] * (ABNORMAL) Basic metabolic panel (03/11/2023 10:31 PM CDT) Sodium 140 135 - 145 mmol/L [facility] Potassium, pl 3.8 3.3 - 4.9 mmol/L [facility] Chloride 101 97 - 110 mmol/L [facility] CO2 33(H) 22 - 32 mmol/L [facility] Anion gap 6 2 - 15 mmol/L [facility] BUN 8 6 - 25 mg/dL [facility] Creatinine 0.64(L) 0.80 - 1.30 mg/dL [facility] Glucose 176 70 - 199 mg/dL [facility] Comment: Interpretive Data Fasting glucose >/= 126 [...] 2022. Calcium 8.1(L) 8.5 - 10.3 mg/dL [facility] Blood 03/11/2023 10:3 1 PM CDT 03/11/2023 11:49 PM CDT Josephine JARAMILLO LAB BLOOD ORDERABLES Shilpi l Result Performing Organization Address City/[facility]/ZIP Co de Phone Number [facility] Department [place] [address] * (ABNORMAL) CBC with auto differential (03/11/2023 10:31 PM CDT) Pathologist [facility] WBC 8.8 3.8 - 9.9 K/cumm [facility] Hgb 11.2(L) 13.0 - 17.5 g/dL [facility] Hct 34.8(L) 38.9 - 50.3 % [facility] Plt 248 150 - 400 K/cumm [facility] MPV 8.9(L) 9.1 - 12.3 fL [facility] RBC 4.07(L) 4.30 - 5.80 M/cumm [facility] MCV 85.5 81.3 - 96.4 fL [facility] MCH 27.5 27.1 - 33.3 pg [facility] MCHC 32.2(L) 32.3 - 35.7 g/dL [facility] RDW CV 12.9 11.1 - 14.9 % [facility] RDW SD 39.5 35.7 - 48.1 fL [facility] NRBC abs 0.00 0.00 - 0.01 K/cumm [facility] Blood 03/11/2023 10:3 1 PM CDT 03/11/2023 11:57 PM CDT Josephine JARAMILLO LAB BLOOD ORDERABLES Shilpi l Result Performing Organization Address City/[facility]/ZIP Co de Phone Number [facility] [place] [address] * POCT glucose (03/11/2023 8:17 PM CDT) Glucose, POC 196 70 - 199 mg/dL [facility] Blood 03/11/2023 8:17 PM CDT 03/11/2023 8:17 PM CDT us Neno Lei MD LAB POCT ORDERABLES - DEV ICE Final Result Performing Organization Address City/[facility] Co de Phone Number [facility] [place] [address] * (ABNORMAL) POCT glucose (03/11/2023 5:25 PM CDT) Glucose, POC 205(H) 70 - 199 mg/dL [facility] Blood 03/11/2023 5:25 PM CDT 03/11/2023 5:25 PM CDT us Neno Lei MD LAB POCT ORDERABLES - DEV ICE Final Result Performing Organization Address [facility] Co de Phone Number [facility] [place] [address] * (ABNORMAL) POCT glucose (03/11/2023 11:51 AM CDT) Glucose, POC 241(H) 70 - 199 mg/dL [facility] Blood 03/11/2023 11:5 1 AM CDT 03/11/2023 11:51 AM CDT us Neno Lei MD LAB POCT ORDERABLES - DEV ICE Final Result Performing Organization Address City/[facility] [place] [address] * POCT glucose (03/11/2023 7:38 AM CDT) Glucose, POC 194 70 - 199 mg/dL [facility] Blood 03/11/2023 7:38 AM CDT 03/11/2023 7:38 AM CDT us Neno Lei MD LAB POCT ORDERABLES - DEV ICE Final Result Performing Organization Address City/[facility] Co de Phone Number [facility] [place] [address] [place] [address] * eGFR (03/10/2023 10:22 PM CDT) eGFR >90 90 - 130 mL/min/1. 73 m2 [facility] Comment: Interpretive Data Reference Interval Normal ?>/= [...] 03/11/2023 12:10 AM CDT us Marcos Browne NP LAB BLOOD ORDERABLES Final Result Performing Organization Address City/[facility] Co de Phone Number [facility] [place] [address] [place] [address] * (ABNORMAL) CBC without differential (03/10/2023 10:22 PM CDT) [facility] WBC 8.8 3.8 - 9.9 K/cumm [facility] Hgb 11.4(L) 13.0 - 17.5 g/dL [facility] Hct 35.0(L) 38.9 - 50.3 % [facility] Plt 270 150 - 400 K/cumm [facility] MPV 8.9(L) 9.1 - 12.3 fL [facility] RBC 4.17(L) 4.30 - 5.80 M/cumm [facility] MCV 83.9 81.3 - 96.4 fL [facility] MCH 27.3 27.1 - 33.3 pg [facility] MCHC 32.6 32.3 - 35.7 g/dL [facility] RDW CV 13.0 11.1 - 14.9 % [facility] RDW SD 39.6 35.7 - 48.1 fL [facility] NRBC abs 0.00 0.00 - 0.01 K/cumm [facility] Blood 03/10/2023 10:2 2 PM CDT 03/11/2023 12:10 AM CDT Marcos Browne NP LAB BLOOD ORDERABLES Final Result Performing Organization Address [facility] Co de Phone Number [facility] Department [place] [address] * Phosphorus (03/10/2023 10:22 PM CDT) [facility] Phosphorus, pl 2.9 2.3 - 4.5 mg/dL [facility] Blood 03/10/2023 10:2 2 PM CDT 03/11/2023 12:10 AM CDT Marcos Browne NP LAB BLOOD ORDERABLES Final Result Performing Organization Address City/[facility] Co de Phone Number [facility] Department [place] [address] * Magnesium (03/10/2023 10:22 PM CDT) Magnesium 2.0 1.4 - 2.5 mg/dL [facility] Blood 03/10/2023 10:2 2 PM CDT 03/11/2023 12:10 AM CDT Marcos Browne NP LAB BLOOD ORDERABLES Final Result [facility] [place] [address] * (ABNORMAL) Basic metabolic panel (03/10/2023 10:22 PM CDT) Pathologist [facility] Sodium 139 135 - 145 mmol/L [facility] Potassium, pl 4.1 3.3 - 4.9 mmol/L [facility] Chloride 101 97 - 110 mmol/L [facility] CO2 31 22 - 32 mmol/L [facility] Anion gap 7 2 - 15 mmol/L [facility] BUN 12 6 - 25 mg/dL [facility] Creatinine 0.68(L) 0.80 - 1.30 mg/dL [facility] Glucose 186 70 - 199 mg/dL [facility] Comment: Interpretive Data Fasting glucose >/= 126 [...] 2022. Calcium 8.3(L) 8.5 - 10.3 mg/dL [facility] Blood 03/10/2023 10:2 2 PM CDT 03/11/2023 12:10 AM CDT us Marcos Browne NP LAB BLOOD ORDERABLES Final Result Performing Organization Address [facility] Co de Phone Number [facility] [place] [address] * POCT glucose (03/10/2023 10:07 PM CDT) Glucose, POC 183 70 - 199 mg/dL [facility] Blood 03/10/2023 10:0 7 PM CDT 03/10/2023 10:07 PM CDT us Hans Negron MD LAB POCT ORDERABLES - DEVICE Final Result Performing Organization Address [facility] Co de Phone Number [facility] [place] [address] * (ABNORMAL) POCT glucose (03/10/2023 5:03 PM CDT) Glucose, POC 209(H) 70 - 199 mg/dL [facility] Blood 03/10/2023 5:03 PM CDT 03/10/2023 5:03 PM CDT us Hans Negron MD LAB POCT ORDERABLES - DEVICE Final Result Performing Organization Address [facility] Co de Phone Number [facility] Department [place] [address] * POCT glucose (03/10/2023 11:47 AM CDT) Glucose, POC 166 70 - 199 mg/dL [facility] Glucose comment 1 Glu2: RN/MD Notified [facility] Blood 03/10/2023 11:4 7 AM CDT 03/10/2023 11:47 AM CDT us Ursula Ferro MD LAB POCT ORDERABLES - DEVICE F inal Result Performing Organization Address City/[facility] Co de Phone Number [facility] Department [place] [address] * POCT glucose (03/10/2023 8:28 AM CDT) Glucose, POC 141 70 - 199 mg/dL [facility] Blood 03/10/2023 8:28 AM CDT 03/10/2023 8:28 AM CDT us Ursula Ferro MD LAB POCT ORDERABLES - DEVICE F inal Result Performing Organization Address [facility] Co de Phone Number [facility] [place] [address] * (ABNORMAL) Tissue aerobic and anaerobic culture and gram stain Tissue Scrotum (03/10/2023 8:23 AM CDT) Direct Specimen Exam Stain: No polymorphonuclear leukocytes seen. Moderate Gram Positive Cocci [facility] Report Final Report: Few Mixed microorganisms. Includes the following: Rare Destiny glabrata For susceptibility results, refer to accession number [id number] on the scrotum abscess culture from 03/10/2023 (.) [facility] Organism MIXED MICROORGANISMS. [facility] Organism DESTINY GLABRATA [facility] Tissue (Scrotum) 03/10/2023 8:23 AM CDT 03/10/2023 10:51 AM CDT Narrative [facility] - 03/17/2023 7:49 AM CDT Left scrotal tissue Testing performed by [facility] Microbiology Laboratory ([phone]) Specimens submitted from normally sterile body sites [...] MICROBIOLOGY - GEN ERAL ORDERABLES Final Result [facility] [place] [address] * (ABNORMAL) Aerobic and anaerobic culture and [...] are needed, please contact the laboratory at [phone]. The Clinical and Laboratory Standards [employer] M60 (2nd edition) breakpoints are used for interpretation of minimum inhibitory concentration results. The [employer] Yeast One panel is RESEARCH USE ONLY; it has not been cleared or approved by the U.S. Food and Drug Administration. These results are for informational purposes only. The performance characteristics of this yeast susceptibility method were evaluated by the [facility] Microbiology Laboratory. Interpretive criteria last updated Oct, 2020. * ??* ??* ??* ??* ??* ??* ??* ??* ??* ??* ??* ??* ??* ??* ??* ??* ??* ??* ??*(.) [facility] Organism MIXED GRAM POSITIVE MICROORGANISMS [facility] Organism DESTINY GLABRATA [facility] Abscess (Scrotum) 03/10/2023 8:21 AM CDT 03/10/2023 10:54 AM CDT Narrative [facility] - 03/16/2023 1:06 PM CDT Left Scrotal Abscess Testing performed by [facility] Microbiology Laboratory ([phone]) Specimens submitted from normally sterile body sites [...] MICROBIOLOGY - GEN ERAL ORDERABLES Final Result [facility] [place] [address] * Critical Care (03/10/2023 7:32 AM CDT) [...] plan with the patient's team and other medical/workday financials consultant staff. This time was in addition to and separate from care provided by other practitioners on this day of service. ?? us Marcos Browne NP IN CLINIC/BEDSIDE ORDERABL ES Final Result * (ABNORMAL) Differential, auto (03/10/2023 12:14 AM CDT) Pathologist [facility] Neutrophil abs 6.9(H) 1.7 - 6.5 K/cumm [facility] Imm gran abs 0.4(H) 0.0 - 0.1 K/cumm [facility] Lymphocyte abs 2.4 0.8 - 3.3 K/cumm [facility] [facility] Monocyte abs 0.8 0.2 - 0.8 K/cumm [facility] Eosinophil abs 0.2 0.0 - 0.5 K/cumm [facility] Basophil abs 0.1 0.0 - 0.1 K/cumm [facility] Neutrophil pct 63.8 % [facility] Comment: Interpretive Data Percent cell count reference ranges are not reported, since discordance with absolute values may lead to misinterpretation of CBC data. Current Interpretive Data was last revised on 2017. Imm gran pct 3.4 % [facility] Comment: Interpretive Data Percent cell count reference ranges are not reported, since discordance with absolute values may lead to misinterpretation of CBC data. Current Interpretive Data was last revised on 2017. Lymphocyte pct 22.3 % [facility] Comment: Interpretive Data Percent cell count reference ranges are not reported, since discordance with absolute values may lead to misinterpretation of CBC data. Current Interpretive Data was last revised on 2017. Monocyte pct 7.8 % [facility] Comment: Interpretive Data Percent cell count reference ranges are not reported, since discordance with absolute values may lead to misinterpretation of CBC data. Current Interpretive Data was last revised on 2017. Eosinophil pct 2.1 % [facility] Comment: Interpretive Data Percent cell count reference ranges are not reported, since discordance with absolute values may lead to misinterpretation of CBC data. Current Interpretive Data was last revised on 2017. Basophil pct 0.6 % [facility] Comment: Interpretive Data Percent cell count reference ranges are not reported, since discordance with absolute values may lead to misinterpretation of CBC data. Current Interpretive Data was last revised on 2017. Blood 03/10/2023 12:1 4 AM CDT 03/10/2023 12:24 AM CDT Matheus JARAMILLO LAB BLOOD ORDERABLES Final Result Performing Organization Address [facility] Co de Phone Number [facility] [place] [address] [place] [address] * (ABNORMAL) CBC with auto differential (03/10/2023 12:14 AM CDT) Pathologist [facility] WBC 10.8(H) 3.8 - 9.9 K/cumm [facility] Hgb 11.2(L) 13.0 - 17.5 g/dL [facility] Hct 33.8(L) 38.9 - 50.3 % [facility] Plt 328 150 - 400 K/cumm [facility] MPV 9.1 9.1 - 12.3 fL [facility] RBC 4.05(L) 4.30 - 5.80 M/cumm [facility] MCV 83.5 81.3 - 96.4 fL [facility] MCH 27.7 27.1 - 33.3 pg [facility] MCHC 33.1 32.3 - 35.7 g/dL [facility] RDW CV 12.9 11.1 - 14.9 % [facility] RDW SD 39.2 35.7 - 48.1 fL [facility] NRBC abs 0.00 0.00 - 0.01 K/cumm [facility] Blood 03/10/2023 12:1 4 AM CDT 03/10/2023 12:24 AM CDT Matheus JARAMILLO LAB BLOOD ORDERABLES Final Result [facility] [place] [address] * eGFR (03/09/2023 9:42 PM CDT) Pathologist [facility] eGFR >90 90 - 130 mL/min/1. 73 m2 [facility] Comment: Interpretive Data Reference Interval Normal ?>/= [...] Matheus JARAMILLO LAB BLOOD ORDERABLES Final Result [facility] [place] [address] * (ABNORMAL) Diabetes Mellitus Type 1 Evaluation (03/09/2023 9:42 PM CDT) Insulin ab 0.00 0.00 - 0.02 nmol/L [facility] Comment: ADDITIONAL INFORMATION This test was developed and its performance characteristics determined by [facility] in a manner consistent with CLIA requirements. This test has not been cleared or approved by the U.S. Food and Drug Administration. GAD65 ab ser 0.31(H) <=0.02 nmol/L [facility] Comment: ADDITIONAL INFORMATION This test was developed and its performance characteristics determined by [facility] in a manner consistent with CLIA requirements. This test has not been cleared or approved by the U.S. Food and Drug Administration. IA-2 Ab 0.00 <=0.02 nmol/L [facility] Comment: ADDITIONAL INFORMATION This test was developed and its performance characteristics determined by [facility] in a manner consistent with CLIA requirements. This test has not been cleared or approved by the U.S. Food and Drug Administration. Diabetes, type 1, interpretation See Footnote [facility] Comment: This profile is consistent with a [...] 2016;462:60-64. * Anisha BUSH, Varinder Gallardo, Juan LUTHER, Darryl S, Oscar GF, Mimi EA. Prediction of IDDM in the general population: strategies based on combinations of autoantibody markers. Diabetes. 1997;46:1701-10. * ZNT8 Antibodies <15.0 <15.0 units/mL [facility] Comment: ADDITIONAL INFORMATION This test has been modified from the assistant baseball coach's instructions. Its performance characteristics were determined by [facility] in a manner consistent with CLIA requirements. This test has not been cleared or approved by the U.S. Food and Drug Administration. Test Performed by: [place] [address] Obstetrics Specialist: Maxx Rollins M.D. Ph.D.; CLIA# [id number] Blood 03/09/2023 9:42 PM CDT 03/10/2023 9:15 AM CDT Ursula Ferro MD LAB BLOOD ORDERABLES Final Res ult Performing Organization Address City/[facility]/ZIP Co de Phone Number [facility] [address] [place] [address] * (ABNORMAL) PTH (03/09/2023 9:42 PM CDT) PTH 12(L) 15 - 65 pg/mL [facility] Blood 03/09/2023 9:42 PM CDT 03/09/2023 9:54 PM CDT Matheus JARAMILLO LAB BLOOD ORDERABLES Final Result Performing Organization Address [facility]/ZIP Co de Phone Number [facility] [address] [place] [address] * Phosphorus (03/09/2023 9:42 PM CDT) Phosphorus, pl 2.8 2.3 - 4.5 mg/dL [facility] Blood 03/09/2023 9:42 PM CDT 03/09/2023 9:52 PM CDT Matheus JARAMILLO LAB BLOOD ORDERABLES Final Result Performing Organization Address City/[facility] Co de Phone Number [facility] [place] [address] * Magnesium (03/09/2023 9:42 PM CDT) Pathologist [facility] Magnesium 1.7 1.4 - 2.5 mg/dL [facility] Blood 03/09/2023 9:42 PM CDT 03/09/2023 9:52 PM CDT Matheus JARAMILLO LAB BLOOD ORDERABLES Final Result Performing Organization Address [facility] de Phone Number [facility] Department [place] [address] * (ABNORMAL) Comprehensive metabolic panel (03/09/2023 9:42 PM CDT) [facility] Sodium 137 135 - 145 mmol/L [facility] Potassium, pl 4.2 3.3 - 4.9 mmol/L [facility] Chloride 101 97 - 110 mmol/L [facility] CO2 28 22 - 32 mmol/L [facility] Anion gap 8 2 - 15 mmol/L [facility] BUN 11 6 - 25 mg/dL [facility] Creatinine 0.56(L) 0.80 - 1.30 mg/dL [facility] Glucose 184 70 - 199 mg/dL [facility] Comment: Interpretive Data Fasting glucose >/= 126 [...] 2022. Calcium 8.5 8.5 - 10.3 mg/dL [facility] Bilirubin, total 0.2 0.1 - 1.2 mg/dL [facility] Protein, pl 5.4(L) 6.5 - 8.5 g/dL [facility] Albumin 2.2(L) 3.5 - 5.0 g/dL [facility] Alk phos 100 40 - 130 Units/L [facility] ALT 16 7 - 55 Units/L [facility] AST 25 10 - 50 Units/L [facility] Blood 03/09/2023 9:42 PM CDT 03/09/2023 9:52 PM CDT Matheus JARAMILLO LAB BLOOD ORDERABLES Final Result Performing Organization Address City/[facility]/ZIP Co de Phone Number [facility] Department [place] [address] * POCT glucose (03/09/2023 9:15 PM CDT) Glucose, POC 186 70 - 199 mg/dL [facility] Blood 03/09/2023 9:15 PM CDT 03/09/2023 9:15 PM CDT Ursula Ferro MD LAB POCT ORDERABLES - DEVICE F inal Result [facility] Department [place] [address] * Calcium, ionized, whole blood (03/09/2023 9:07 PM CDT) Ca, ionized, bld 4.86 4.50 - 5.10 mg/dL [facility] Blood 03/09/2023 9:07 PM CDT 03/09/2023 9:43 PM CDT Matheus JARAMILLO LAB BLOOD ORDERABLES Final Result Performing Organization Address [facility]/ZIP Co de Phone Number [facility] Department [place] [address] * Critical Care (03/09/2023 8:22 PM CDT) [...] plan with the patient's team and other medical/workday financials consultant staff. This time was in addition to and separate from care provided by other practitioners on this day of service. ?? Matheus JARAMILLO IN CLINIC/BEDSIDE ORDERABLE S Final Result * POCT glucose (03/09/2023 4:55 PM CDT) Glucose, POC 189 70 - 199 mg/dL [facility] Blood 03/09/2023 4:55 PM CDT 03/09/2023 4:55 PM CDT Ursula Ferro MD LAB POCT ORDERABLES - DEVICE F inal Result Performing Organization Address [facility]/ZIP Co de Phone Number [facility] [place] [address] * POCT glucose (03/09/2023 11:26 AM CDT) Glucose, POC 194 70 - 199 mg/dL [facility] Blood 03/09/2023 11:2 6 AM CDT 03/09/2023 11:26 AM CDT Ursula Ferro MD LAB POCT ORDERABLES - DEVICE F inal Result Performing Organization Address [facility]/ZIP Co de Phone Number [facility] Department [place] [address] * Critical Care (03/09/2023 7:52 AM CDT) [...] plan with the patient's team and other medical/workday financials consultant staff. This time was in addition to and separate from care provided by other practitioners on this day of service. ?? Marcos Browne TILE FINISHER IN CLINIC/BEDSIDE ORDERABL ES Final Result * POCT glucose (03/09/2023 7:34 AM CDT) Glucose, POC 181 70 - 199 mg/dL [facility] Blood 03/09/2023 7:34 AM CDT 03/09/2023 7:34 AM CDT Ursula Ferro MD LAB POCT ORDERABLES - DEVICE F inal Result Performing Organization Address [facility]/ZIP Co de Phone Number [facility] Department [place] [address] * POCT glucose (03/09/2023 3:29 AM CDT) Glucose, POC 182 70 - 199 mg/dL [facility] Blood 03/09/2023 3:29 AM CDT 03/09/2023 3:29 AM CDT Ursula Ferro MD LAB POCT ORDERABLES - DEVICE F inal Result Performing Organization Address [facility] [place] [address] * POCT glucose (03/09/2023 12:06 AM CDT) Glucose, POC 187 70 - 199 mg/dL [facility] Blood 03/09/2023 12:0 6 AM CDT 03/09/2023 12:06 AM CDT Ursula Ferro MD LAB POCT ORDERABLES - DEVICE F inal Result Performing Organization Address [facility] [place] [address] * Critical Care (03/08/2023 10:30 PM CDT) Narrative Matheus Frias PA - 03/08/2023 10:30 PM CDT Matheus Frias PA ? 03/09/2023 ??5:06 AM Critical [...] plan with the patient's team and other medical/workday financials consultant staff. This time was in addition [...] Result * eGFR (03/08/2023 8:59 PM CDT) [facility] eGFR >90 90 - 130 mL/min/1. 73 m2 [facility] Comment: Interpretive Data Reference Interval Normal ?>/= [...] 8:59 PM CDT 03/08/2023 9:13 PM CDT Mckayla Mary Iyer TILE FINISHER LAB BLOOD ORDERABL ES Final Result [facility] Department [place] [address] * (ABNORMAL) Vitamin D 25 hydroxy (03/08/2023 8:59 PM CDT) [facility] Vitamin D 25-OH <6(L) 30 - 80 ng/mL [facility] Blood 03/08/2023 8:59 PM CDT 03/08/2023 9:07 PM CDT us Ursula Ferro MD LAB BLOOD ORDERABLES Final Res ult Performing Organization Address City/[facility] Co de Phone Number [facility] Department [place] [address] * (ABNORMAL) CBC without differential (03/08/2023 8:59 PM CDT) [facility] WBC 10.9(H) 3.8 - 9.9 K/cumm [facility] Hgb 10.5(L) 13.0 - 17.5 g/dL [facility] Hct 32.9(L) 38.9 - 50.3 % [facility] Plt 302 150 - 400 K/cumm [facility] MPV 9.0(L) 9.1 - 12.3 fL [facility] RBC 3.91(L) 4.30 - 5.80 M/cumm [facility] MCV 84.1 81.3 - 96.4 fL [facility] MCH 26.9(L) 27.1 - 33.3 pg [facility] MCHC 31.9(L) 32.3 - 35.7 g/dL [facility] RDW CV 13.3 11.1 - 14.9 % [facility] RDW SD 40.9 35.7 - 48.1 fL [facility] NRBC abs 0.00 0.00 - 0.01 K/cumm [facility] Blood 03/08/2023 8:59 PM CDT 03/08/2023 9:09 PM CDT Mckayla Iyer NP LAB BLOOD ORDERABL ES Final Result [facility] Department [place] [address] * (ABNORMAL) Basic metabolic panel (03/08/2023 8:59 PM CDT) [facility] Sodium 138 135 - 145 mmol/L [facility] Potassium, pl 4.0 3.3 - 4.9 mmol/L [facility] Chloride 103 97 - 110 mmol/L [facility] CO2 26 22 - 32 mmol/L [facility] Anion gap 9 2 - 15 mmol/L [facility] BUN 10 6 - 25 mg/dL [facility] Creatinine 0.60(L) 0.80 - 1.30 mg/dL [facility] Glucose 215(H) 70 - 199 mg/dL [facility] Comment: Interpretive Data Fasting glucose >/= 126 [...] 2022. Calcium 8.0(L) 8.5 - 10.3 mg/dL [facility] Blood 03/08/2023 8:59 PM CDT 03/08/2023 9:07 PM CDT Mckayla Iyer NP LAB BLOOD ORDERABL ES Final Result Performing Organization Address [facility]/ZIP Co de Phone Number [facility] Department [place] [address] * POCT glucose (03/08/2023 7:34 PM CDT) Glucose, POC 194 70 - 199 mg/dL [facility] Blood 03/08/2023 7:34 PM CDT 03/08/2023 7:34 PM CDT Ursula Ferro MD LAB POCT ORDERABLES - DEVICE F inal Result Performing Organization Address City/[facility] Co de Phone Number [facility] Department [place] [address] [place] [address] * POCT glucose (03/08/2023 4:39 PM CDT) Glucose, POC 152 70 - 199 mg/dL [facility] Blood 03/08/2023 4:39 PM CDT 03/08/2023 4:39 PM CDT Ursula Ferro MD LAB POCT ORDERABLES - DEVICE F inal Result Performing Organization Address [facility] de Phone Number [facility] [address] [place] [address] * POCT glucose (03/08/2023 12:03 PM CDT) Glucose, POC 155 70 - 199 mg/dL [facility] Blood 03/08/2023 12:0 3 PM CDT 03/08/2023 12:03 PM CDT Ursula Ferro MD LAB POCT ORDERABLES - DEVICE F inal Result Performing Organization Address City/[facility] Co de Phone Number [facility] [address] [place] [address] * POCT glucose (03/08/2023 9:58 AM CDT) Glucose, POC 147 70 - 199 mg/dL [facility] Blood 03/08/2023 9:58 AM CDT 03/08/2023 9:58 AM CDT us Ursula Ferro MD LAB POCT ORDERABLES - DEVICE F inal Result Performing Organization Address City/[facility] Co de Phone Number [facility] [place] [address] * POCT glucose (03/08/2023 9:06 AM CDT) [facility] Glucose, POC 142 70 - 199 mg/dL [facility] Blood 03/08/2023 9:06 AM CDT 03/08/2023 9:06 AM CDT us Ursula Ferro MD LAB POCT ORDERABLES - DEVICE F inal Result Performing Organization Address [facility] de Phone Number [facility] [place] [address] * Critical Care (03/08/2023 8:55 AM CDT) [...] plan with the patient's team and other medical/workday financials consultant staff. This time was in addition to and separate from care provided by other practitioners on this day of service. ?? us Mckayla Mary Iyer TILE FINISHER IN CLINIC/BEDSIDE ORDERABLES Final Result * POCT glucose (03/08/2023 8:03 AM CDT) Glucose, POC 145 70 - 199 mg/dL [facility] Blood 03/08/2023 8:03 AM CDT 03/08/2023 8:03 AM CDT Ursula Ferro MD LAB POCT ORDERABLES - DEVICE F inal Result Performing Organization Address [facility] Co de Phone Number [facility] [place] [address] * POCT glucose (03/08/2023 6:59 AM CDT) Glucose, POC 146 70 - 199 mg/dL [facility] Blood 03/08/2023 6:59 AM CDT 03/08/2023 6:59 AM CDT Ursula Ferro MD LAB POCT ORDERABLES - DEVICE F inal Result Performing Organization Address [facility] de Phone Number [facility] [place] [address] * Vancomycin level random (03/08/2023 5:31 AM CDT) Vancomycin random 18.9 mcg/mL [facility] Comment: Interpretive Data No reference ranges have been established for random drug levels. Current Interpretive Data was last revised on 2020. Blood 03/08/2023 5:31 AM CDT 03/08/2023 6:26 AM CDT Matheus JARAMILLO LAB BLOOD ORDERABLES Final Result Performing Organization Address [facility] Co de Phone Number [facility] [place] [address] * (ABNORMAL) Diabetes Mellitus Type 1 Evaluation (03/08/2023 5:31 AM CDT) Insulin ab 0.00 0.00 - 0.02 nmol/L [facility] Comment: ADDITIONAL INFORMATION This test was developed and its performance characteristics determined by [facility] in a manner consistent with CLIA requirements. This test has not been cleared or approved by the U.S. Food and Drug Administration. GAD65 ab ser 0.32(H) <=0.02 nmol/L [facility] Comment: ADDITIONAL INFORMATION This test was developed and its performance characteristics determined by [facility] in a manner consistent with CLIA requirements. This test has not been cleared or approved by the U.S. Food and Drug Administration. IA-2 Ab 0.00 <=0.02 nmol/L [facility] Comment: ADDITIONAL INFORMATION This test was developed and its performance characteristics determined by [facility] in a manner consistent with CLIA [...] 1997;46:1701-10. * ZNT8 Antibodies <15.0 <15.0 units/mL [facility] Comment: ADDITIONAL INFORMATION This test has been modified from the assistant baseball coach's instructions. Its performance characteristics were determined by [facility] in a manner consistent with CLIA requirements. This test has not been cleared or approved by the U.S. Food and Drug Administration. Test Performed by: [facility] Laboratories [address] [address] Obstetrics Specialist: Maxx Rollins M.D. Ph.D.; CLIA# [id number] Blood 03/08/2023 5:31 AM CDT 03/08/2023 6:25 AM CDT us Matheus JARAMILLO LAB BLOOD ORDERABLES Final Result [facility] Department [place] [address] * C-peptide (03/08/2023 5:31 AM CDT) C-peptide 2.24 1.10 - 4.40 ng/mL [facility] Blood 03/08/2023 5:31 AM CDT 03/08/2023 6:25 AM CDT Matheus JARAMILLO LAB BLOOD ORDERABLES Final Result Performing Organization Address [facility] de Phone Number [facility] [place] [address] * (ABNORMAL) Glutamic acid decarboxylase (03/08/2023 5:31 AM CDT) GAD65 ab ser 0.33(H) <=0.02 nmol/L [facility] Comment: The following antibody was identified: Glutamic [...] its performance characteristics determined by [facility] in a manner consistent with CLIA requirements. This test has not been cleared or approved by the U.S. Food and Drug Administration. Test Performed by: [facility] [place] [address] Obstetrics Specialist: Maxx Rollins M.D. Ph.D.; CLIA# [id number] Blood 03/08/2023 5:31 AM CDT 03/08/2023 6:25 AM CDT Matheus JARAMILLO LAB BLOOD ORDERABLES Final Result Performing Organization Address [facility] Co de Phone Number [facility] [place] [address] * POCT glucose (03/08/2023 5:19 AM CDT) Glucose, POC 171 70 - 199 mg/dL [facility] Blood 03/08/2023 5:19 AM CDT 03/08/2023 5:19 AM CDT Ursula Ferro MD LAB POCT ORDERABLES - DEVICE F inal Result Performing Organization Address [facility] Co de Phone Number [facility] [place] [address] [place] [address] * POCT glucose (03/08/2023 2:56 AM CDT) Glucose, POC 152 70 - 199 mg/dL [facility] Blood 03/08/2023 2:56 AM CDT 03/08/2023 2:56 AM CDT Ursula Ferro MD LAB POCT ORDERABLES - DEVICE F inal Result Performing Organization Address [facility] de Phone Number [facility] [address] [place] [address] * POCT glucose (03/08/2023 12:51 AM CDT) Glucose, POC 137 70 - 199 mg/dL [facility] Blood 03/08/2023 12:5 1 AM CDT 03/08/2023 12:51 AM CDT Carmen Monte MD LAB POCT ORDERABLES - DEVICE Final Result Performing Organization Address [facility] Co de Phone Number [facility] [address] [place] [address] * POCT glucose (03/07/2023 10:43 PM CDT) Glucose, POC 125 70 - 199 mg/dL [facility] Blood 03/07/2023 10:4 3 PM CDT 03/07/2023 10:43 PM CDT Carmen Monte MD LAB POCT ORDERABLES - DEVICE Final Result Performing Organization Address City/[facility]/ZIP Co de Phone Number [facility] Department [place] [address] * Critical Care (03/07/2023 9:04 PM CDT) [...] plan with the patient's team and other medical/workday financials consultant staff. This time was in addition to and separate from care provided by other practitioners on this day of service. ? I spent time reviewing and interpreting data from bedside monitors, laboratory results, and imaging, I spent time discussing the management of this critically ill patient with consultants and the medical staff and I spent time documenting in the medical record us Matheus JARAMILLO IN CLINIC/BEDSIDE ORDERABLE S Final Result * POCT glucose (03/07/2023 8:29 PM CDT) Glucose, POC 129 70 - 199 mg/dL [facility] Blood 03/07/2023 8:29 PM CDT 03/07/2023 8:29 PM CDT Carmen Monte MD LAB POCT ORDERABLES - DEVICE Final Result [facility] [place] [address] * eGFR (03/07/2023 8:27 PM CDT) [facility] eGFR >90 90 - 130 mL/min/1. 73 m2 [facility] Comment: Interpretive Data Reference Interval Normal ?>/= [...] Matheus JARAMILLO LAB BLOOD ORDERABLES Final Result [facility] [place] [address] * (ABNORMAL) Differential, auto (03/07/2023 8:27 PM CDT) [facility] Neutrophil abs 10.1(H) 1.7 - 6.5 K/cumm [facility] Imm gran abs 0.3(H) 0.0 - 0.1 K/cumm [facility] Lymphocyte abs 2.5 0.8 - 3.3 K/cumm [facility] Monocyte abs 1.3(H) 0.2 - 0.8 K/cumm [facility] Eosinophil abs 0.2 0.0 - 0.5 K/cumm [facility] Basophil abs 0.1 0.0 - 0.1 K/cumm [facility] Neutrophil pct 69.8 % [facility] Comment: Interpretive Data Percent cell count reference ranges are not reported, since discordance with absolute values may lead to misinterpretation of CBC data. Current Interpretive Data was last revised on 2017. Imm gran pct 2.1 % [facility] Comment: Interpretive Data Percent cell count reference ranges are not reported, since discordance with absolute values may lead to misinterpretation of CBC data. Current Interpretive Data was last revised on 2017. Lymphocyte pct 17.3 % [facility] Comment: Interpretive Data Percent cell count reference ranges are not reported, since discordance with absolute values may lead to misinterpretation of CBC data. Current Interpretive Data was last revised on 2017. Monocyte pct 8.8 % [facility] Comment: Interpretive Data Percent cell count reference ranges are not reported, since discordance with absolute values may lead to misinterpretation of CBC data. Current Interpretive Data was last revised on 2017. Eosinophil pct 1.5 % [facility] Comment: Interpretive Data Percent cell count reference ranges are not reported, since discordance with absolute values may lead to misinterpretation of CBC data. Current Interpretive Data was last revised on 2017. Basophil pct 0.5 % [facility] Comment: Interpretive Data Percent cell count reference ranges are not reported, since discordance with absolute values may lead to misinterpretation of CBC data. Current Interpretive Data was last revised on 2017. Blood 03/07/2023 8:27 PM CDT 03/07/2023 8:56 PM CDT Matheus JARAMILLO LAB BLOOD ORDERABLES Final Result [facility] [place] [address] * (ABNORMAL) Calcium, ionized, whole blood (03/07/2023 8:27 PM CDT) [facility] Ca, ionized, bld 4.34(L) 4.50 - 5.10 mg/dL [facility] Blood 03/07/2023 8:27 PM CDT 03/07/2023 8:41 PM CDT Matheus JARAMILLO LAB BLOOD ORDERABLES Final Result Performing Organization Address [facility] Co de Phone Number [facility] [place] [address] * (ABNORMAL) CBC with auto differential (03/07/2023 8:27 PM CDT) [facility] WBC 14.5(H) 3.8 - 9.9 K/cumm [facility] Hgb 10.3(L) 13.0 - 17.5 g/dL [facility] Hct 32.4(L) 38.9 - 50.3 % [facility] Plt 297 150 - 400 K/cumm [facility] MPV 9.0(L) 9.1 - 12.3 fL [facility] RBC 3.80(L) 4.30 - 5.80 M/cumm [facility] MCV 85.3 81.3 - 96.4 fL [facility] MCH 27.1 27.1 - 33.3 pg [facility] MCHC 31.8(L) 32.3 - 35.7 g/dL [facility] RDW CV 13.6 11.1 - 14.9 % [facility] RDW SD 42.5 35.7 - 48.1 fL [facility] NRBC abs 0.00 0.00 - 0.01 K/cumm [facility] Blood 03/07/2023 8:27 PM CDT 03/07/2023 8:56 PM CDT Matheus JARAMILLO LAB BLOOD ORDERABLES Final Result Performing Organization Address City/[facility] Co de Phone Number [facility] [place] [address] * Magnesium (03/07/2023 8:27 PM CDT) Pathologist [facility] Magnesium 2.5 1.4 - 2.5 mg/dL [facility] Blood 03/07/2023 8:27 PM CDT 03/07/2023 8:56 PM CDT Matheus JARAMILLO LAB BLOOD ORDERABLES Final Result Performing Organization Address [facility] de Phone Number [facility] [place] [address] * Phosphorus (03/07/2023 8:27 PM CDT) [facility] Phosphorus, pl 4.1 2.3 - 4.5 mg/dL [facility] Blood 03/07/2023 8:27 PM CDT 03/07/2023 8:56 PM CDT Matheus JARAMILLO LAB BLOOD ORDERABLES Final Result Performing Organization Address [facility] de Phone Number [facility] [place] [address] * (ABNORMAL) Comprehensive metabolic panel (03/07/2023 8:27 PM CDT) Pathologist [facility] Sodium 139 135 - 145 mmol/L [facility] Potassium, pl 3.6 3.3 - 4.9 mmol/L [facility] Chloride 106 97 - 110 mmol/L [facility] CO2 24 22 - 32 mmol/L [facility] Anion gap 9 2 - 15 mmol/L [facility] BUN 14 6 - 25 mg/dL [facility] Creatinine 0.73(L) 0.80 - 1.30 mg/dL [facility] Glucose 136 70 - 199 mg/dL [facility] Comment: Interpretive Data Fasting glucose >/= 126 [...] 2022. Calcium 7.8(L) 8.5 - 10.3 mg/dL [facility] Bilirubin, total 0.3 0.1 - 1.2 mg/dL [facility] Protein, pl 5.3(L) 6.5 - 8.5 g/dL [facility] Albumin 2.1(L) 3.5 - 5.0 g/dL [facility] Alk phos 118 40 - 130 Units/L [facility] ALT 17 7 - 55 Units/L [facility] AST 28 10 - 50 Units/L [facility] Blood 03/07/2023 8:27 PM CDT 03/07/2023 8:56 PM CDT Matheus JARAMILLO LAB BLOOD ORDERABLES Final Result Performing Organization Address City/[facility]/ZIP Co de Phone Number [facility] [place] [address] * POCT glucose (03/07/2023 7:08 PM CDT) [facility] Glucose, POC 129 70 - 199 mg/dL [facility] Blood 03/07/2023 7:08 PM CDT 03/07/2023 7:08 PM CDT Carmen Monte MD LAB POCT ORDERABLES - DEVICE Final Result Performing Organization Address City/[facility]/ZIP Co de Phone Number [facility] [place] [address] * POCT glucose (03/07/2023 5:08 PM CDT) [facility] Glucose, POC 133 70 - 199 mg/dL [facility] Blood 03/07/2023 5:08 PM CDT 03/07/2023 5:08 PM CDT Carmen Monte MD LAB POCT ORDERABLES - DEVICE Final Result [facility] [place] [address] * eGFR (03/07/2023 4:49 PM CDT) [facility] eGFR See Comment 90 - 130 [facility] Comment: Unable to calculate exact result. Interpretive [...] Final Result Performing Organization Address [facility] Co de Phone Number [facility] [address] [place] [address] * (ABNORMAL) Beta-hydroxybutyrate (03/07/2023 4:49 PM CDT) Beta-Hydroxybut yrate 0.9(H) 0.0 - 0.5 mmol/L [facility] Blood 03/07/2023 4:49 PM CDT 03/07/2023 4:[address] [facility] Mckayla Iyer NP LAB BLOOD ORDERABL ES Final Result Performing Organization Address [facility] de Phone Number [facility] [address] [place] [address] * Phosphorus (03/07/2023 4:49 PM CDT) Phosphorus, pl See Comment 2.3 - 4.5 mg/dL [facility] Comment: Credited; Hemolyzed Specimen Telephone report made to: Javier TRUJILLO) on 03/07/2023 17:52:34 CDT by KG . Blood 03/07/2023 4:49 PM CDT 03/07/2023 4:[address] [facility] Mckayla Iyer NP LAB BLOOD ORDERABL ES Final Result Performing Organization Address [facility] Co de Phone Number [facility] [address] [place] [address] * Magnesium (03/07/2023 4:49 PM CDT) Magnesium See Comment 1.4 - 2.5 mg/dL [facility] Comment: Credited; Hemolyzed Specimen Telephone report made to: Javier TRUJILLO) on 03/07/2023 17:52:34 CDT by KG . Blood 03/07/2023 4:49 PM CDT 03/07/2023 4:55 PM CDT Mckayla Iyer NP LAB BLOOD ORDERABL ES Final Result [facility] Department [place] [address] * Basic metabolic panel (03/07/2023 4:49 PM CDT) Pathologist [facility] Sodium See Comment 135 - 145 mmol/L [facility] Comment: Credited; Hemolyzed Specimen Telephone report made to: Javier TRUJILLO) on 03/07/2023 17:52:34 CDT by KG . Potassium, pl See Comment 3.3 - 4.9 mmol/L [facility] Comment:Credited; Hemolyzed Specimen Chloride See Comment 97 - 110 mmol/L [facility] Comment:Credited; Hemolyzed Specimen CO2 See Comment 22 - 32 mmol/L [facility] Comment:Credited; Hemolyzed Specimen Anion gap See Comment 2 - 15 mmol/L [facility] Comment:Unable to calculate BUN See Comment 6 - 25 mg/dL [facility] Comment:Credited; Hemolyzed Specimen Creatinine See Comment 0.80 - 1.30 mg/dL [facility] Comment:Credited; Hemolyzed Specimen Glucose See Comment 70 - 199 mg/dL [facility] Comment: Credited; Hemolyzed Specimen Interpretive Data Fasting [...] Calcium See Comment 8.5 - 10.3 mg/dL [facility] Comment:Credited; Hemolyzed Specimen Blood 03/07/2023 4:49 PM CDT 03/07/2023 4:55 PM CDT Mckayla Iyer NP LAB BLOOD ORDERABL ES Final Result Performing Organization Address [facility]/ZIP Co de Phone Number [facility] [address] [place] [address] * POCT glucose (03/07/2023 4:05 PM CDT) Glucose, POC 138 70 - 199 mg/dL [facility] Blood 03/07/2023 4:05 PM CDT 03/07/2023 4:05 PM CDT Carmen Monte MD LAB POCT ORDERABLES - DEVICE Final Result Performing Organization Address City/[facility] Co de Phone Number [facility] Department [place] [address] [place] [address] * POCT glucose (03/07/2023 3:00 PM CDT) Glucose, POC 138 70 - 199 mg/dL [facility] Blood 03/07/2023 3:00 PM CDT 03/07/2023 3:00 PM CDT Carmen Monte MD LAB POCT ORDERABLES - DEVICE Final Result Performing Organization Address City/[facility]/ZIP Co de Phone Number [facility] Department [place] [address] [place] [address] * POCT glucose (03/07/2023 1:55 PM CDT) Glucose, POC 151 70 - 199 mg/dL [facility] Blood 03/07/2023 1:55 PM CDT 03/07/2023 1:55 PM CDT Carmen Monte MD LAB POCT ORDERABLES - DEVICE Final Result Performing Organization Address City/State/[facility] Co de Phone Number [facility] [place] [address] * eGFR (03/07/2023 12:20 PM CDT) [facility] eGFR >90 90 - 130 mL/min/1. 73 m2 [facility] Comment: Interpretive Data Reference Interval Normal ?>/= [...] Final Result Performing Organization Address [facility] Co de Phone Number [facility] [place] [address] * POCT glucose (03/07/2023 12:20 PM CDT) Glucose, POC 142 70 - 199 mg/dL [facility] Blood 03/07/2023 12:2 0 PM CDT 03/07/2023 12:20 PM CDT us Carmen Monte MD LAB POCT ORDERABLES - DEVICE Final Result Performing Organization Address [facility] de Phone Number [facility] [place] [address] * (ABNORMAL) Phosphorus (03/07/2023 12:20 PM CDT) Phosphorus, pl 4.8(H) 2.3 - 4.5 mg/dL [facility] Blood 03/07/2023 12:2 0 PM CDT 03/07/2023 12:35 PM CDT us Mckayla Iyer NP LAB BLOOD ORDERABL ES Final Result Performing Organization Address [facility] Co de Phone Number [facility] [place] [address] [place] [address] * Magnesium (03/07/2023 12:20 PM CDT) Magnesium 2.5 1.4 - 2.5 mg/dL [facility] Blood 03/07/2023 12:2 0 PM CDT 03/07/2023 12:35 PM CDT Mckayla Mary Iyer [employer]ISH[employer] LAB BLOOD ORDERABL ES Final Result [facility] [place] [address] * (ABNORMAL) Basic metabolic panel (03/07/2023 12:20 PM CDT) Sodium 139 135 - 145 mmol/L [facility] Potassium, pl 3.3 3.3 - 4.9 mmol/L [facility] Chloride 104 97 - 110 mmol/L [facility] CO2 24 22 - 32 mmol/L [facility] Anion gap 11 2 - 15 mmol/L [facility] BUN 13 6 - 25 mg/dL [facility] Creatinine 0.77(L) 0.80 - 1.30 mg/dL [facility] Glucose 142 70 - 199 mg/dL [facility] Comment: Interpretive Data Fasting glucose >/= 126 [...] 2022. Calcium 8.2(L) 8.5 - 10.3 mg/dL [facility] Blood 03/07/2023 12:2 0 PM CDT 03/07/2023 12:35 PM CDT Mckayla Iyer TILE FINISH[employer] LAB BLOOD ORDERABL ES Final Result [facility] [place] [address] * POCT glucose (03/07/2023 10:43 AM CDT) Glucose, POC 115 70 - 199 mg/dL [facility] Blood 03/07/2023 10:4 3 AM CDT 03/07/2023 10:43 AM CDT Carmen Monte MD LAB POCT ORDERABLES - DEVICE Final Result Performing Organization Address City/[facility] Co de Phone Number [facility] [place] [address] * POCT glucose (03/07/2023 9:35 AM CDT) Glucose, POC 127 70 - 199 mg/dL [facility] Blood 03/07/2023 9:35 AM CDT 03/07/2023 9:35 AM CDT Carmen Monte MD LAB POCT ORDERABLES - DEVICE Final Result Performing Organization Address [facility] de Phone Number [facility] [place] [address] * (ABNORMAL) Basic metabolic panel (03/07/2023 7:57 AM CDT) Sodium 137 135 - 145 mmol/L [facility] Potassium, pl 3.3 3.3 - 4.9 mmol/L [facility] Chloride 100 97 - 110 mmol/L [facility] CO2 25 22 - 32 mmol/L [facility] Anion gap 12 2 - 15 mmol/L [facility] BUN 13 6 - 25 mg/dL [facility] Creatinine 0.74(L) 0.80 - 1.30 mg/dL [facility] Glucose 125 70 - 199 mg/dL [facility] Comment: Interpretive Data Fasting glucose >/= 126 [...] Calcium 8.1(L) 8.5 - 10.3 mg/dL [facility] Blood 03/07/2023 7:57 AM CDT 03/07/2023 8:11 AM CDT Carmen Monte MD LAB BLOOD ORDERABLES Final Result [facility] [place] [address] * eGFR (03/07/2023 7:57 AM CDT) eGFR >90 90 - 130 mL/min/1. 73 m2 [facility] Comment: Interpretive Data Reference Interval Normal ?>/= [...] Final Result Performing Organization Address [facility] Co de Phone Number [facility] [place] [address] [place] [address] * POCT glucose (03/07/2023 7:57 AM CDT) Pathologist [facility] Glucose, POC 125 70 - 199 mg/dL [facility] Blood 03/07/2023 7:57 AM CDT 03/07/2023 7:57 AM CDT Carmen Monte MD LAB POCT ORDERABLES - DEVICE Final Result Performing Organization Address [facility] Co de Phone Number [facility] [place] [address] * (ABNORMAL) Beta-hydroxybutyrate (03/07/2023 7:57 AM CDT) [facility] Beta-Hydroxybut yrate 1.7(H) 0.0 - 0.5 mmol/L [facility] Blood 03/07/2023 7:57 AM CDT 03/07/2023 8:18 AM CDT Mckayla Iyer NP LAB BLOOD ORDERABL ES Final Result Performing Organization Address [facility] Co de Phone Number [facility] [place] [address] * Insulin antibody (03/07/2023 7:57 AM CDT) [facility] Insulin ab 0.01 0.00 - 0.02 nmol/L [facility] Comment: ADDITIONAL INFORMATION This test was developed and its performance characteristics determined by [facility] in a manner consistent with CLIA requirements. This test has not been cleared or approved by the U.S. Food and Drug Administration. Test Performed by: [address] [address] Obstetrics Specialist: Maxx Rollins M.D. Ph.D.; CLIA# [id number] Blood 03/07/2023 7:57 AM CDT 03/07/2023 8:45 AM CDT Mckayla Iyer NP LAB BLOOD ORDERABL ES Final Result Performing Organization Address [facility] Co de Phone Number [facility] [address] [place] [address] * C-peptide (03/07/2023 7:57 AM CDT) Pathologist [facility] C-peptide 1.84 1.10 - 4.40 ng/mL [facility] Blood 03/07/2023 7:57 AM CDT 03/07/2023 8:11 AM CDT Mckayla Iyer NP LAB BLOOD ORDERABL ES Final Result Performing Organization Address [facility] Co de Phone Number [facility] [address] [place] [address] * Critical Care (03/07/2023 7:06 AM CDT) [...] plan with the ICU team and other medical/workday financials consultant staff, making frequent assessments and decisions [...] Glucose, POC 116 70 - 199 mg/dL [facility] Blood 03/07/2023 6:55 AM CDT 03/07/2023 6:55 AM CDT Carmen Monte MD LAB POCT ORDERABLES - DEVICE Final Result [facility] Department [place] [address] * POCT glucose (03/07/2023 5:59 AM CDT) Glucose, POC 97 70 - 199 mg/dL [facility] Blood 03/07/2023 5:59 AM CDT 03/07/2023 5:59 AM CDT Carmen Monte MD LAB POCT ORDERABLES - DEVICE Final Result Performing Organization Address City/[facility]/[place] [address] * POCT glucose (03/07/2023 3:53 AM CDT) Glucose, POC 111 70 - 199 mg/dL [facility] Blood 03/07/2023 3:5 3 AM CDT 03/07/2023 3:53 AM CDT Carmen Monte MD LAB POCT ORDERABLES - DEVICE Final Result Performing Organization Address [facility] [place] [address] * POCT glucose (03/07/2023 1:57 AM CDT) Glucose, POC 129 70 - 199 mg/dL [facility] Blood 03/07/2023 1:57 AM CDT 03/07/2023 1:57 AM CDT Carmen Monte MD LAB POCT ORDERABLES - DEVICE Final Result Performing Organization Address [facility]/ZIP Co de Phone Number [facility] [address] [place] [address] * POCT glucose (03/07/2023 1:01 AM CDT) Glucose, POC 132 70 - 199 mg/dL [facility] Blood 03/07/2023 1:01 AM CDT 03/07/2023 1:01 AM CDT Carmen Monte MD LAB POCT ORDERABLES - DEVICE Final Result Performing Organization Address City/[facility]/ZIP Co de Phone Number [facility] [place] [address] * POCT glucose (03/06/2023 11:53 PM CDT) Glucose, POC 129 70 - 199 mg/dL [facility] Blood 03/06/2023 11:5 3 PM CDT 03/06/2023 11:53 PM CDT Carmen Monte MD LAB POCT ORDERABLES - DEVICE Final Result Performing Organization Address City/[facility]/[place] [address] * POCT glucose (03/06/2023 10:56 PM CDT) Glucose, POC 139 70 - 199 mg/dL [facility] Blood 03/06/2023 10:5 6 PM CDT 03/06/2023 10:56 PM CDT Carmen Monte MD LAB POCT ORDERABLES - DEVICE Final Result Performing Organization Address City/[facility] [place] [address] * (ABNORMAL) POCT glucose (03/06/2023 9:54 PM CDT) Glucose, POC 249(H) 70 - 199 mg/dL [facility] Blood 03/06/2023 9:54 PM CDT 03/06/2023 9:54 PM CDT Carmen Monte MD LAB POCT ORDERABLES - DEVICE Final Result Performing Organization Address City/[facility]/[place] [address] * (ABNORMAL) Lipid panel (03/06/2023 9:15 PM CDT) [facility] Cholesterol 106 30 - 199 mg/dL [facility] Comment: Interpretive Data Ages < [...] revised on 2018. Triglycerides 93 <=149 mg/dL [facility] Comment: Interpretive Data Ages < [...] on 2018. HDL 20(L) >=40 mg/dL [facility] Comment: Interpretive Data Ages < or = [...] on 2018. LDL, calculated 67 <=129 mg/dL [facility] Comment: Interpretive Data Ages < [...] revised on 2018. Non-HDL Cholesterol 86 mg/dL [facility] Comment: Interpretive Data Ages < [...] last revised on 2018. Chol/HDL ratio 5 [facility] Blood 03/06/2023 9:15 PM CDT 03/06/2023 9:36 PM CDT Carmen Monte MD LAB BLOOD ORDERABLES Final Result Performing Organization Address [facility] de Phone Number [facility] Department [place] [address] * (ABNORMAL) Hemoglobin A1c (03/06/2023 9:15 PM CDT) Hgb A1C 13.3(H) 4.0 - 5.6 % [facility] Estimated Average Glucose 335 mg/dL [facility] Comment: The ADA recommends reporting an estimated [...] Final Result Performing Organization Address [facility] Co de Phone Number [facility] Department [place] [address] * eGFR (03/06/2023 9:15 PM CDT) eGFR >90 90 - 130 mL/min/1. 73 m2 [facility] Comment: Interpretive Data Reference Interval Normal ?>/= [...] Matheus JARAMILLO LAB BLOOD ORDERABLES Final Result [facility] [place] [address] * (ABNORMAL) Differential, auto (03/06/2023 9:15 PM CDT) Neutrophil abs 16.7(H) 1.7 - 6.5 K/cumm [facility] Imm gran abs 0.4(H) 0.0 - 0.1 K/cumm [facility] Lymphocyte abs 2.1 0.8 - 3.3 K/cumm [facility] Monocyte abs 1.9(H) 0.2 - 0.8 K/cumm [facility] Eosinophil abs 0.1 0.0 - 0.5 K/cumm [facility] Basophil abs 0.1 0.0 - 0.1 K/cumm [facility] Neutrophil pct 78.4 % [facility] Comment: Interpretive Data Percent cell count reference ranges are not reported, since discordance with absolute values may lead to misinterpretation of CBC data. Current Interpretive Data was last revised on 2017. Imm gran pct 1.8 % [facility] Comment: Interpretive Data Percent cell count reference ranges are not reported, since discordance with absolute values may lead to misinterpretation of CBC data. Current Interpretive Data was last revised on 2017. Lymphocyte pct 9.8 % [facility] Comment: Interpretive Data Percent cell count reference ranges are not reported, since discordance with absolute values may lead to misinterpretation of CBC data. Current Interpretive Data was last revised on 2017. Monocyte pct 9.1 % [facility] Comment: Interpretive Data Percent cell count reference ranges are not reported, since discordance with absolute values may lead to misinterpretation of CBC data. Current Interpretive Data was last revised on 2017. Eosinophil pct 0.5 % [facility] Comment: Interpretive Data Percent cell count reference ranges are not reported, since discordance with absolute values may lead to misinterpretation of CBC data. Current Interpretive Data was last revised on 2017. Basophil pct 0.4 % [facility] Comment: Interpretive Data Percent cell count reference ranges are not reported, since discordance with absolute values may lead to misinterpretation of CBC data. Current Interpretive Data was last revised on 2017. Blood 03/06/2023 9:15 PM CDT 03/06/2023 9:35 PM CDT Matheus JARAMILLO LAB BLOOD ORDERABLES Final Result [facility] [place] [address] * (ABNORMAL) Beta-hydroxybutyrate (03/06/2023 9:15 PM CDT) Beta-Hydroxybut yrate 0.9(H) 0.0 - 0.5 mmol/L [facility] Blood 03/06/2023 9:15 PM CDT 03/06/2023 9:33 PM CDT Matheus JARAMILLO LAB BLOOD ORDERABLES Final Result Performing Organization Address [facility] Co de Phone Number [facility] [address] [place] [address] * (ABNORMAL) CBC with auto differential (03/06/2023 9:15 PM CDT) WBC 21.3(H) 3.8 - 9.9 K/cumm [facility] Hgb 11.6(L) 13.0 - 17.5 g/dL [facility] Hct 35.8(L) 38.9 - 50.3 % [facility] Plt 348 150 - 400 K/cumm [facility] MPV 9.3 9.1 - 12.3 fL [facility] RBC 4.23(L) 4.30 - 5.80 M/cumm [facility] MCV 84.6 81.3 - 96.4 fL [facility] MCH 27.4 27.1 - 33.3 pg [facility] MCHC 32.4 32.3 - 35.7 g/dL [facility] RDW CV 13.3 11.1 - 14.9 % [facility] RDW SD 41.1 35.7 - 48.1 fL [facility] NRBC abs 0.00 0.00 - 0.01 K/cumm [facility] Blood 03/06/2023 9:15 PM CDT 03/06/2023 9:35 PM CDT Matheus JARAMILLO LAB BLOOD ORDERABLES Final Result [facility] [place] [address] [place] [address] * Lactate (03/06/2023 9:15 PM CDT) Lactate 1.9 0.7 - 2.0 mmol/L [facility] Blood 03/06/2023 9:15 PM CDT 03/06/2023 9:37 PM CDT us Matheus JARAMILLO LAB BLOOD ORDERABLES Final Result Performing Organization Address [facility] Co de Phone Number [facility] [place] [address] * (ABNORMAL) Calcium, ionized (03/06/2023 9:15 PM CDT) Calcium, Ionized 4.15(L) 4.50 - 5.10 mg/dL [facility] Blood 03/06/2023 9:15 PM CDT 03/06/2023 9:33 PM CDT Matheus JARAMILLO LAB BLOOD ORDERABLES Final Result Performing Organization Address [facility] de Phone Number [facility] [place] [address] * Phosphorus (03/06/2023 9:15 PM CDT) Phosphorus, pl 4.3 2.3 - 4.5 mg/dL [facility] Blood 03/06/2023 9:15 PM CDT 03/06/2023 9:36 PM CDT Matheus JARAMILLO LAB BLOOD ORDERABLES Final Result Performing Organization Address [facility] Co de Phone Number [facility] Department [place] [address] * Magnesium (03/06/2023 9:15 PM CDT) Magnesium 2.0 1.4 - 2.5 mg/dL [facility] Blood 03/06/2023 9:15 PM CDT 03/06/2023 9:36 PM CDT Matheus JARAMILLO LAB BLOOD ORDERABLES Final Result Performing Organization Address [facility]/ZIP Co de Phone Number [facility] Department [place] [address] * (ABNORMAL) Comprehensive metabolic panel (03/06/2023 9:15 PM CDT) Sodium 140 135 - 145 mmol/L [facility] Potassium, pl 3.5 3.3 - 4.9 mmol/L [facility] Chloride 101 97 - 110 mmol/L [facility] CO2 26 22 - 32 mmol/L [facility] Anion gap 13 2 - 15 mmol/L [facility] BUN 14 6 - 25 mg/dL [facility] Creatinine 0.79(L) 0.80 - 1.30 mg/dL [facility] Glucose 217(H) 70 - 199 mg/dL [facility] Comment: Interpretive Data Fasting glucose >/= 126 [...] 2022. Calcium 8.3(L) 8.5 - 10.3 mg/dL [facility] Bilirubin, total 0.4 0.1 - 1.2 mg/dL [facility] Protein, pl 5.9(L) 6.5 - 8.5 g/dL [facility] Albumin 2.4(L) 3.5 - 5.0 g/dL [facility] Alk phos 113 40 - 130 Units/L [facility] ALT 15 7 - 55 Units/L [facility] AST 25 10 - 50 Units/L [facility] Blood 03/06/2023 9:15 PM CDT 03/06/2023 9:36 PM CDT us Matheus JARAMILLO LAB BLOOD ORDERABLES Final Result [facility] [place] [address] * (ABNORMAL) POCT glucose (03/06/2023 8:59 PM CDT) Glucose, POC 234(H) 70 - 199 mg/dL [facility] Blood 03/06/2023 8:59 PM CDT 03/06/2023 8:59 PM CDT Carmen Monte MD LAB POCT ORDERABLES - DEVICE Final Result Performing Organization Address [facility] [place] [address] * (ABNORMAL) POCT glucose (03/06/2023 7:56 PM CDT) Glucose, POC 238(H) 70 - 199 mg/dL [facility] Blood 03/06/2023 7:56 PM CDT 03/06/2023 7:56 PM CDT Carmen Monte MD LAB POCT ORDERABLES - DEVICE Final Result Performing Organization Address [facility] [place] [address] * Critical Care (03/06/2023 7:17 PM CDT) Narrative Deanna Thompson MD PhD - 03/06/2023 7:17 PM CDT Matheus Frias PA ? 03/07/2023 ??5:21 AM Critical Care Performed by: Matheus Frias [...] plan with the ICU team and other medical/workday financials consultant staff, making frequent assessments and decisions [...] (ABNORMAL) POCT glucose (03/06/2023 6:52 PM CDT) Glucose, POC 282(H) 70 - 199 mg/dL [facility] Blood 03/06/2023 6:52 PM CDT 03/06/2023 6:52 PM CDT Carmen Monte MD LAB POCT ORDERABLES - DEVICE Final Result Performing Organization Address [facility] Co de Phone Number [facility] Department [place] [address] * (ABNORMAL) POCT glucose (03/06/2023 6:17 PM CDT) Glucose, POC 269(H) 70 - 199 mg/dL [facility] Blood 03/06/2023 6:17 PM CDT 03/06/2023 6:17 PM CDT Carmen Monte MD LAB POCT ORDERABLES - DEVICE Final Result Performing Organization Address City/[facility]/ZIP Co de Phone Number [facility] [place] [address] * (ABNORMAL) POCT glucose (03/06/2023 5:40 PM CDT) Glucose, POC 277(H) 70 - 199 mg/dL [facility] Blood 03/06/2023 5:40 PM CDT 03/06/2023 5:40 PM CDT Carmen Monte MD LAB POCT ORDERABLES - DEVICE Final Result [facility] [place] [address] * (ABNORMAL) Aerobic and anaerobic culture and gram stain Abscess Scrotum (03/06/2023 5:26 PM CDT) Direct Specimen Exam Stain: Moderate polymorphonuclear leukocytes seen. Moderate Gram Positive Cocci Moderate Gram Positive Bacilli Moderate Gram Negative Bacilli [facility] Report Final Report: Moderate Streptococcus anginosus For susceptibility results, refer to accession number [id number] on the scrotum tissue culture from 03/06/2023 Few Mixed aerobic and anaerobic microorganisms (.) [facility] Organism STREPTOCOCCUS ANGINOSUS [facility] Organism MIXED AEROBIC AND ANAEROBIC MICROORGANISMS [facility] Abscess (Scrotum) 03/06/2023 5:26 PM CDT 03/06/2023 7:46 PM CDT Narrative [facility] - 03/16/2023 7:53 AM CDT Perineal Abscess #2 for Culture Specimen received on an ESwab. Testing performed by [facility] Microbiology Laboratory ([phone]) Specimens submitted from normally sterile body sites [...] MICROBIOLOGY - GENER AL ORDERABLES Final Result [facility] [place] [address] * (ABNORMAL) Tissue aerobic and anaerobic culture and gram stain Tissue Scrotum (03/06/2023 5:18 PM CDT) Direct Specimen Exam Stain: Rare polymorphonuclear leukocytes seen. Abundant Gram Positive Cocci Abundant Gram Negative Bacilli Moderate Gram Positive Bacilli [facility] Report Final Report: Moderate Streptococcus anginosus Few Mixed aerobic and anaerobic microorganisms (.) [facility] Organism STREPTOCOCCUS ANGINOSUS [facility] Organism MIXED AEROBIC AND ANAEROBIC MICROORGANISMS [facility] Tissue (Scrotum) 03/06/2023 5:18 PM CDT 03/06/2023 7:40 PM CDT Narrative [facility] - 03/16/2023 7:52 AM CDT Perineal Tissue for Culture Testing performed by [facility] Microbiology Laboratory ([phone]) Specimens submitted from normally sterile body sites [...] Streptococcus anginosus Vancomycin (JEFF) INTERPRETAT ION Susceptible us Carmen Monte MD LAB MICROBIOLOGY - G ENERAL ORDERABLES Final Result [facility] [place] [address] * (ABNORMAL) Aerobic and anaerobic culture and gram stain Abscess Scrotum (03/06/2023 5:17 PM CDT) Direct Specimen Exam Stain: Abundant polymorphonuclear leukocytes seen. Abundant Gram Positive Cocci Abundant Gram Negative Bacilli Moderate Gram Positive Bacilli [facility] Report Final Report: Abundant Streptococcus anginosus For susceptibility results, refer to accession number [id number] on the scrotum tissue culture from 03/06/2023 Few Mixed aerobic and anaerobic microorganisms (.) [facility] Organism STREPTOCOCCUS ANGINOSUS [facility] Organism MIXED AEROBIC AND ANAEROBIC MICROORGANISMS [facility] Abscess (Scrotum) 03/06/2023 5:17 PM CDT 03/06/2023 7:44 PM CDT Narrative [facility] - 03/16/2023 7:52 AM CDT Perineal Abscess Specimen received in a sterile container. Testing performed by [facility] Microbiology Laboratory ([phone]) Specimens submitted from normally sterile body sites [...] us Pilar Johnson MD LAB MICROBIOLOGY - [facility] ORDERABLES Final Result [facility] [place] [address] * (ABNORMAL) POCT glucose (03/06/2023 4:08 PM CDT) Glucose, POC 298(H) 70 - 199 mg/dL [facility] Blood 03/06/2023 4:08 PM CDT 03/06/2023 4:08 PM CDT Carmen Monte MD LAB POCT ORDERABLES - DEVICE Final Result [facility] [place] [address] * US Arterial Duplex Lower Extremity Bilateral (03/06/2023 3:21 PM CDT) Anatomical Region Laterality Modality Vascular Bilateral Ultrasound 03/06/2023 1:52 PM CDT Narrative 03/07/2023 12:23 PM CDT [employer] - Department of Vascular Surgery, Vascular Laboratory [address] [place] [address] [place] Lower Extremity Arterial Duplex Report Patient Name: [...] ?Units ?Measurement ? Value ?Units ? Rt CAFE MANAGER Dst PSV ?93 ? cm/s ? Lt CAFE MANAGER Dst PSV ?154 ?cm/s ? Rt Profunda [...] ? Left Lower ? - Findings: Performing Stamping Operator: Anca Alexis RVT ([place]). Right Common Femoral: [...] Duplex imaging of the bilateral lower extremity [place] arteries reveals patent vessels with no flow [...] above. Electronically Signed By: Alberto Ching MD [facility] 2023-03-07 12:23:36 CDT CC: CC: Procedure Note Alberto Ching MD - 03/07/2023 [facility] - Department of Vascular Surgery,Vascular Laboratory [address] [place], [place] [id number] [place] Lower Extremity Arterial Duplex Report Patient Name: RENE HYATT MPatient ID: [id number] : [id number] Date: 03/06/2023 1:52:30 PM Gender: MAccession #: [id number] Tech: TFLocation: [id number] Ref.Provider: ANIL BIRMINGHAMQuality: Adequate Order Provider: ANIL BIRMINGHAM Procedures: Arterial Report: Bilateral Lower Extremity Arterial Duplex Exam. Indications: Left foot metatarsal base ulcer, and left big toe ulcer, did not know hehas diabetes. Measurements: Right Lower Left Lower Measurement Value Units MeasurementValue Units Rt CAFE MANAGER Dst PSV 93 cm/s Lt CAFE MANAGER Dst [id number] cm/s Rt Profunda Prx PSV 51 cm/s Lt Profunda Prx PSV86 cm/s Rt Superficial Femoral Prx PSV 106 cm/s Lt Superficial FemoralPrx PSV 145 cm/s Rt Superficial Femoral Mid PSV 90 cm/s Lt Superficial FemoralMid PSV 130 cm/s Rt Superficial Femoral Dst PSV 73 cm/s Lt Superficial FemoralDst PSV 86 cm/s Rt Popliteal Artery 90 cm/s Lt Popliteal [id number] cm/s Rt Post Tibial Prx PSV 86 cm/s Lt Post Tibial Prx PSV92 cm/s Rt Post Tibial Mid PSV 96 cm/s Lt Post Tibial Mid PSV97 cm/s Rt Post Tibial Dst PSV 83 cm/s Lt Post Tibial Dst PSV90 cm/s Rt Ant Tibial Prx PSV 77 cm/s Lt Ant Tibial Prx [id number] cm/s Rt Ant Tibial Mid PSV 73 cm/s Lt Ant Tibial Mid VQJ898 cm/s Rt Ant Tibial Dst PSV 75 cm/s Lt Ant Tibial Dst AML249 cm/s Rt Peroneal Prx PSV 67 cm/s Lt Peroneal Prx PSV76 cm/s Rt Peroneal Mid PSV 54 cm/s Lt Peroneal Mid PSV62 cm/s Rt Peroneal Dst PSV 52 cm/s Lt Peroneal Dst PSV77 cm/s Measurement Value Units MeasurementValue Units Right Lower Left Lower - Findings: Performing Stamping Operator: Anca Alexis RVT ([place]). Right Common Femoral: [...] Duplex imaging of the bilateral lower extremity [place] arteries revealspatent vessels with no flow limiting [...] above. Electronically Signed By: Alberto Ching MD [facility] 2023-03-07 12:23:36 CDT CC: CC: Anil Birmingham MD [facility] US PROCEDURES Final Resu lt * US Arterial Doppler Lower Extremity Bilateral (03/06/2023 3:14 PM CDT) Anatomical Region Laterality Modality Vascular Bilateral Ultrasound 03/06/2023 1:53 PM CDT Narrative 03/07/2023 12:41 PM CDT [facility] - Department of Vascular Surgery, Vascular Laboratory [address] [place] [address] Lower Extremity Arterial Doppler Report Patient Name: RENE HYATT M : 1980 Study Date: 03/06/2023 1:53:00 PM Gender: M Tech: Anca Alexis [facility] Location: 2183 Ref.Provider: ANIL BIRMINGHAM Quality: Adequate [...] Brachial Pressure ? 110 ?mmHg ? Rt EXPERIMENTAL PSYCHOLOGIST Pressure ?162 ?mmHg ? Lt EXPERIMENTAL PSYCHOLOGIST Pressure ?158 ?mmHg ? Rt DPA Pressure [...] - ?Left - ? - Findings: Performing Stamping Operator: Anca Alexis RVT ([place]). Bilateral All Levels [...] above. Electronically Signed By: Alberto Ching MD [facility] 2023-03-07 12:41:16 CDT CC: CC: Procedure Note Alberto Ching MD - 03/07/2023 [facility] - Department of Vascular Surgery,Vascular Laboratory [address] [place] [address] Lower Extremity Arterial Doppler Report Patient Name: RENE HYATT MPatient ID: [id number] : [id number] Date: 03/06/2023 1:53:00 PM Gender: MAccession #: [id number] Tech: Anca Alexis RvtLocation: 2183 Ref.Provider: ANIL BIRMINGHAMQuality: Adequate Order Provider: ANIL BIRMINGHAM Procedures: Arterial Report: Bilateral lower extremity arterial Doppler exam at rest. Indications: Left foot metatarsal base ulcer, and left big toe ulcer, did not know hehas diabetes, bilateral leg swelling. Measurements: Right - Left - Measurement Value Units Measurement ValueUnits Rt Brachial Pressure 100 mmHg Lt Brachial Pressure 110mmHg Rt EXPERIMENTAL PSYCHOLOGIST Pressure 162 mmHg Lt EXPERIMENTAL PSYCHOLOGIST Pressure 158mmHg Rt DPA Pressure 159 mmHg Lt DPA Pressure 159mmHg Rt 1st Digit Pressure >254 mmHg Lt 1st Digit Pressure >254mmHg Rt PT MOSES Resting NC Lt PT MOSES Resting NC Rt AT MOSES Resting NC Lt AT MOSES Resting NC Rt Digit/Arm Index NC Lt Digit/Arm Index NC Measurement Value Units Measurement ValueUnits Right - Left - - Findings: Performing Stamping Operator: Anca Alexis RVT ([place]). Bilateral All Levels [...] above. Electronically Signed By: Alberto Ching MD [facility] 2023-03-07 12:41:16 CDT CC: CC: Anil Birmingham MD [facility] PROCEDURES Final Resu lt * Check Sample (03/06/2023 12:17 PM CDT) ABO Rh B Negative [facility] HCLL OTHER 03/06/2023 12:1 7 PM CDT 03/06/2023 12:43 PM CDT Carolee Daly MD LAB BLOOD ORDERABLES Shilpi l Result [facility] [place] [address] * [place] CRITICAL CARE ILL/INJURED PATIENT INIT 30-74 MIN [...] in the medical record. Carolee Daly MD IN CLINIC/BEDSIDE ORDERAB LES Final Result * Sepsis Lactate w/ Reflex (03/06/2023 11:02 AM CDT) Pathologist [facility] Sepsis Lactate 1.8 0.7 - 2.0 mmol/L [facility] Blood 03/06/2023 11:0 2 AM CDT 03/06/2023 11:13 AM CDT Anil Birmingham MD LAB BLOOD ORDERABLES Final R esult [facility] [place] [address] * (ABNORMAL) Protime-INR (03/06/2023 11:02 AM CDT) Pathologist [facility] PT 18.3(H) 10.3 - 13.7 sec [facility] INR 1.61(H) 0.90 - 1.20 [facility] Comment: Interpretive data Oral anticoagulant therapeutic ranges: Venous thromboembolism prophylaxis or treatment: 2.0-3.0 CARDIOLOGY Standard range: 2.0-3.0 High-intensity range: 2.5-3.5 Refer to indication-specific guidelines for appropriate target ranges for prosthetic heart valve replacement. Current interpretive data was last revised on 2019. Blood 03/06/2023 11:0 2 AM CDT 03/06/2023 11:20 AM CDT Anil Birmingham MD LAB BLOOD ORDERABLES Final R esult Performing Organization Address City/[facility] Co de Phone Number [facility] [address] [place] [address] * Type and screen (03/06/2023 11:02 AM CDT) Keenan, indirect Negative [facility] ABO Rh B Negative [facility] Blood 03/06/2023 11:0 2 AM CDT 03/06/2023 11:17 AM CDT Narrative [facility] - 03/06/2023 12:18 PM CDT Has the patient had Daratumumab or Isatuximab in the past 6 months?->Unknown Anil Birmingham MD LAB BLOOD BANK TEST ORDERABL ES Final Result Performing Organization Address [facility] Co de Phone Number [facility] [address] [place] [address] documented in this encounter Visit Diagnoses Diagnosis Scrotal abscess- Primary 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 Scrotal abscess 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) Yamila's gangrene Diabetes mellitus, new onset (HCC) Vitamin D deficiency Diabetic foot ulcer (CMS/HCC) (HCC) Type II or unspecified type diabetes mellitus with other specified manifestations, not stated as uncontrolled Anemia Unspecified anemia Perineal abscess documented in this encounter Admitting Diagnoses Diagnosis [...] Bag 03/24/2023 9:39 PM CDT 3 g atorvastatin (LIPITOR) tablet 20 mg 20 mg, oral, Nightly, First dose on Thu03/10/23 at 2215 Given 03/24/2023 9:38 PM CDT 20 mg Given 03/23/2023 9:37 PM CDT 20 mg Given 03/22/2023 8:19 PM CDT 20 mg BUPivacaine (MARCAINE) 0.25 % (2.5 mg/mL) preservative free injection As needed, Starting on Inna 03/12/23 at 1250, Intra-Op Given 03/12/2023 12:50 PM CDT 40 mL calcium carbonate (OS-KRISTY) tablet 1,250 mg 1,250 mg (500 mg of elemental calcium), oral, 2 times daily, First dose on Thu03/16/23 at 1330 Given 03/25/2023 8:25 AM CDT 1,250 mg Given 03/24/2023 9:38 PM CDT 1,250 mg Given 03/24/2023 9:52 AM CDT 1,250 mg dextrose (D10W) 10% bolus 250 mL 250 [...] for each episode of hypoglycemia., Indications: hypoglycemic disorderIndications:hypoglycem ic disorder dextrose gel in packet 15 g 15 [...] for each episode of hypoglycemia., Indications: hypoglycemic disorderIndications:hypoglycem ic disorder enoxaparin (LOVENOX) syringe 40 mg 40 mg, subcutaneous, Every 12 hours scheduled, First dose (after last modification) on Thu03/09/23 at 0915, Indications: Deep Vein Thrombosis PreventionIndications:Deep [...] 1 mL SWFI. Use immediately following reconstitution. insulin glargine (LANTUS, SEMGLEE) 100 unit/mL injection [...] CDT 12 Units Ri ght Lower Abdomen losartan (COZAAR) tablet 25 mg 25 mg, oral, Daily, First dose on Thu03/17/23 at 1400 Given 03/25/2023 8:25 AM CDT 25 mg Given 03/24/2023 9:52 AM CDT 25 mg Given 03/23/2023 9:18 AM CDT 25 mg micafungin (MYCAMINE) 100 mg/100 mL in [...] 40 mg, oral, Daily, First dose on 03/15/23 at 1530, Do not crush, chew, cut, dissolve, open or otherwise manipulate tablet/capsule., Indications: Stress Ulcer ProphylaxisIndications:Stress Ulcer Prophylaxis Given 03/25/2023 8:25 AM CDT 40 mg Given 03/24/2023 9:53 AM CDT 40 mg Given 03/23/2023 9:18 AM CDT 40 mg prochlorperazine (COMPAZINE) injection 5 mg 5 mg, intravenous, Administer over 2 Minutes, Every 6 hours PRN, nausea, vomiting, 2nd line, Starting on Thu03/09/23 at 0935 Given 03/09/2023 10:20 PM CDT 5 mg Given 03/09/2023 9:38 AM CDT 5 mg ramelteon (ROZEREM) tablet 8 mg 8 mg, oral, Nightly PRN, sleep, Starting on 03/16/23 at 1907, Indications: Sleep-Onset InsomniaIndications:Sleep-Onset Insomnia Given 03/18/2023 9:54 PM CDT 8 m g Given 03/16/2023 10:03 PM CDT 8 mg simethicone (MYLICON) chewable tablet 80 mg 80 mg, oral, 2 times daily PRN, flatulence, Starting on 03/15/23 at 1136 Given 03/15/2023 12:31 PM CDT 80 mg sodium chloride 0.9% irrigation As needed, Starting on Inna 03/12/23 at 1127, Intra-Op Given 03/12/2023 11:27 AM CDT 1,000 mL white petrolatum-mineral oiL (EUCERIN) cream topical, 2 [...] at Discharge 03/02/2023 03/25/2023 aspirin 325 mg tabletIndications:Anthony n Take 2 tablets (650 mg total) [...] at 1945 0531 (Given - Provider: Marcos Link RN)1221 (Given - Provider: Marina Washington, ARYAN)1739 (Given - Provider: Marina Washington, ARYAN) 0110 (Not Given - Provider: Annamarie Giron RN - Reason: Patient/family refused)0628 (Given - Provider: Annamarie Giron RN)1149 (Given - Provider: Marina Washington RN)1816 (Given - Provider: Marina Washington RN) 0003 (Given - Provider: Yancy Stephenson RN)0521 (Given - Provider: Yancy Stephenson RN)1240 (Given - Provider: Clara Carrizales, ARYAN) ampicillin-sulbactam (UNASYN) 3 g/110 mL in sodium chloride 0.9% (premix) 3 g 3 g, intravenous, Administer over 30 Minutes, Every 6 hours scheduled, First dose on Thu03/09/23 at 1345, Indications: Skin/Soft Tissue Infection, wound 0349 (New Bag - Provider: Marcos Link RN)1126 (New Bag - Provider: Gilma Millan RN)1200 (Stopped - Provider: Marina Washington RN)1649 (New Bag - Provider: Marina Washington, ARYAN)2200 (New Bag - Provider: Annamarie Giron, ARYAN) 0418 (New Bag - Provider: Annamarie Giron RN)1104 (New Bag - Provider: Marina Washington [...] 2137 (Given - Provider: Annamarie Giron RN) 213 (Given - Provider: Yancy Stephenson RN) calcium carbonate (OS-KRISTY) tablet 1,250 mg 1,250 mg (500 mg of elemental calcium), oral, 2 times daily, First dose on Thu03/16/23 at 1330 0918 (Given - Provider: Marina Washington RN)2137 (Given - Provider: Annamarie Giron, ARYAN) 0952 (Given - Provider: Marina Washington RN)213 (Given - Provider: Yancy Stephenson RN) 0825 (Given - Provider: Clara Carrizales, ARYAN) enoxaparin (LOVENOX) syringe 40 mg 40 mg, subcutaneous, Every 12 hours scheduled, First dose (after last modification) on Thu03/09/23 at 0915, Indications: Deep Vein Thrombosis Prevention 918 (Given - Provider: Marina Washington RN)2136 (Given - Provider: Annamarie Giron, ARYAN) 951 (Given - Provider: Marina Washington RN)2137 (Given - Provider: Yancy Stephenson RN) 824 (Given - Provider: Clara Carrizales, ARYAN) ergocalciferol (VITAMIN D) capsule 50,000 Units 50,000 Units, oral, 2 times weekly (Once per day on Thu), First dose (after last modification) on Thu03/16/23 at 1345, For 60 days, Do not crush, break, or open. 917 (Given - Provider: Marina Washington RN) insulin glargine (LANTUS, SEMGLEE) 100 unit/mL injection 20 Units 20 Units, subcutaneous, Nightly, First dose on Thu03/09/23 at 2100, Do not hold if NPO. Do not mix with other insulins, Indications: Diabetes Mellitus 2135 (Given - Provider: Annamarie Giron RN) 2138 (Given - Provider: Yancy Stephenson, ARYAN) insulin lispro (HumaLOG, ADMELOG) 100 unit/mL [...] hold for NPO Status, Indications: Diabetes Mellitus 917 (Given - Provider: Marina Washington RN)1326 (Given [...] 2135 (Given - Provider: Annamarie Giron RN) 2148 (Given - Provider: Yancy Stephenson [...] RN) 0826 (Given - Provider: Clara Carrizales, RN)1219 (Given - Provider: Clara Carrizales, ARYAN) losartan (COZAAR) tablet 25 mg 25 mg, oral, Daily, First dose on Thu03/17/23 at 1400 0918 (Given - Provider: Marina Washington RN) 0952 (Given - Provider: Marina Washington RN) 0825 (Given - Provider: Clara Carrizales, ARYAN) micafungin (MYCAMINE) 100 mg/100 mL in sodium chloride 0.9% (premix) 100 mg 100 mg, intravenous, at 100 mL/hr, Administer over 60 Minutes, Every 24 hours scheduled, First dose on Thu03/15/23 at 1400, Flush line with sodium chloride 0.9%. Protect from light., Indications: Abdominal/Pelvic Infection 0920 (New Bag - Provider: Marina Washington RN)1020 (Stopped - Provider: Marina Washington RN) 0953 (New Bag - Provider: Marina Washington, ARYAN)1104 (Stopped - Provider: Marina Washington RN) 0859 (New Bag - Provider: Ti Henry RN) pantoprazole DR (PROTONIX) extended release tablet 40 [...] Count Last Ordered Date First Ordered Date losartan (COZAAR) tablet 25 mg 1 03/17/2023 aspirin enteric coated tablet 325 mg 1 02/2023 calcium carbonate (OS-KRISTY) tablet 1,250 mg 1 03/16/2023 ergocalciferol (VITAMIN D) c apsule 50,000 Units 5 03/16/2023 03/08/2023 insulin lispro (HumaLOG, ADM ELOG) 100 unit/mL injection 12 Units 1 03/16/2023 ramelteon (ROZEREM) tablet 8 mg 1 micafungin (MYCAMINE) 100 mg /100 mL in sodium chloride 0.9% (premix) 100 mg 1 03/15/[address] (PROTONIX) e xtended release tablet 40 mg 1 03/15/2023 simethicone (MYLICON) chewab le tablet 80 mg 1 03/15/2023 white petrolatum-mineral oiL (EUCERIN) cream 2 03/15/2023 03/11/2023 calcium carbonate (TUMS) madeline wable tablet 500 mg 1 03/13/2023 insulin lispro (HumaLOG, ADM ELOG) 100 unit/mL injection 10 Units 1 03/13/2023 acetaminophen (TYLENOL) tablet 1,000 mg 2 1 03/06/2023 Carrier Fluids for Secondary Infusion - 0.9% Sodium Chloride 1 03/12/2023 haloperidol (HALDOL) injection 1 mg 1 03/12 HYDROmorphone (DILAUDID) injection 0.2 mg 2 03/12/2023 03/06/2023 HYDROmorphone (DILAUDID) injection 0.4 mg 1 03/12/2023 hydrOXYzine (ATARAX) tablet 25 mg 1 023 insulin lispro (HumaLOG, ADM ELOG) 100 unit/mL injection 0-10 Units 3 03/12/2023 03/08/2023 Lactated Ringer's (LR) infusion 1 naloxone (NARCAN) 0.4 mg/mL injection 0.04-0.4 mg 1 03/12/2023 prochlorperazine (COMPAZINE) injection 5 mg 2 03/12/2023 03/09/2023 sodium chloride 0.9% flush 0.5-20 mL 1 10/2022 influenza quadrivalent 2023 (FLULAVAL,FLUARIX,FLUZONE) 60 mcg (15 mcg x 4)/0.5 mL vaccine (STANDARD age 6 months and up) 0.5 mL 1 03/11/2023 insulin lispro (HumaLOG, ADM ELOG) 100 unit/mL injection 8 Units 1 03/11/2023 atorvastatin (LIPITOR) tablet 20 mg 1 03/10 ertapenem (INVanz) 1,000 mg in sterile water 10 mL (100 mg/mL) IV syringe 1 03/10/2023 gentamicin (GARAMYCIN) injection 2 03/10/20 23 03/06/2023 magnesium sulfate 4 g/100 mL in water (premix) 4 g 2 03/10/2023 03/06/2023 sodium chloride 0.9% irrigation 3 3 03/06/2023 ampicillin-sulbactam (UNASYN ) 3 g/110 mL in sodium chloride 0.9% (premix) 3 g 1 03/09/2023 ceFAZolin (ANCEF) 2,000 mg/2 0 mL in sterile water (premix) 2,000 mg 1 03/09/2023 dextrose (D10W) 10% bolus 250 mL 3 03/09/20 23 03/06/2023 dextrose gel in packet 15 g 2 03/09/2023 03/06/2023 enoxaparin (LOVENOX) syringe 40 mg 2 202203/06/2023 glucagon injection 1 mg 2 03/09/2023 0902/2023 insulin glargine (LANTUS, SE MGLEE) 100 unit/mL injection 20 Units 1 03/09/2023 insulin lispro (HumaLOG, ADM ELOG) 100 unit/mL injection 0-5 Units 2 03/09/2023 03/08/2023 insulin lispro (HumaLOG, ADM ELOG) 100 unit/mL injection 6 Units 2 03/09/2023 insulin NPH (HumuLIN N, Shannon RASHEL N) 100 unit/mL injection 8 Units 2 03/09/2023 03/08/2023 ondansetron (ZOFRAN) injection 4 mg 2 03/0903/06/2023 calcium carbonate (TUMS) madeline wable tablet 1,000 mg 1 03/08/2023 calcium gluconate 3 g in sod ium chloride 0.9% 100 mL IVPB 3 03/08/2023 03/06/2023 cholecalciferol (VITAMIN D-3 ) capsule 1,000 Units 1 03/08/2023 insulin lispro (HumaLOG, ADM ELOG) 100 unit/mL injection 0-4 Units 1 03/08/2023 dextrose 5% infusion 1 03/07/2023 insulin regular in 0.9% sodi um chloride (MYXREDLIN) 100 unit/100 mL (1 unit/mL) infusion (premix) 3 03/07/2023 03/06/2023 potassium chloride 40 mEq/52 0 mL in sodium chloride 0.9% (premix) 40 mEq 1 03/07/2023 potassium chloride ER (KLOR- CON) extended release tablet 30 mEq 2 03/07/2023 03/06/2023 potassium chloride ER (KLOR- CON) extended release tablet 40 mEq 1 03/07/2023 cefepime (MAXIPIME) 2,000 mg /20 mL in sterile water (premix) 2,000 mg 1 03/06/2023 clindamycin (CLEOCIN) 900 mg /50 mL in dextrose 5% (premix) 900 mg 2 03/06/2023 docusate (COLACE) 10 mg/mL o ral liquid 100 mg 1 03/06/2023 docusate sodium (COLACE) capsule 100 mg 1 0 03/06/2023 HYDROmorphone (DILAUDID) injection 0.5 mg 2 03/06/2023 HYDROmorphone (DILAUDID) injection 1 mg 1 0 03/06/2023 insulin regular bolus from bag 4-10 Units 2 03/06/2023 insulin regular bolus from bag 4-6 Units 2 03/06/2023 Lactated Ringer's (LR) bolus 500 mL 1 03/06 meropenem (MERREM) 2,000 mg/ 120 mL in sodium chloride 0.9% (premix) 2,000 mg 1 03/06/2023 oxyCODONE (ROXICODONE) tablet 5 mg 1 2022 senna (SENOKOT) tablet 1 tablet 1 sodium hypochlorite (DA[employer]AR[employer] STRENGTH) 0.125 % external solution 1 03/06/2023 vancomycin (VANCOCIN) 2,250 mg in sodium chloride 0.9% 500 mL IVPB 1 03/06/2023 Lab Orders Without Results Count [...] red Date CONSULT TO WOUND CARE 3 03/23/20232022 IP CONSULT TO FINANCIAL SYSTEMS ANALYST 2 3 03/06/2023 IP CONSULT TO NUTRITION SERVICES 2 03/11/20 23 03/08/2023 CONSULT TO GENERAL INFECTIOUS DISEASE 1 07/2022 [...] 03/06/2023 documented in this encounter Care Teams C2 Tactical Analysis Technician Relationship Specialty Start Date End Date No, Physician PCP - General 03/06/23 03/24/23 documented as of this encounter
--- OUTSIDE RECORDS SUMMARY | 2024-06-08 00:10 | XMS_ITS | Encounter Summary ---
Author Organization [facility] Healthcare Address [address] [place] [address] Care Team Providers Care Toe Laster Name Role Phone No, Physician Primary Care Provider [phone] Reason for Visit * Reason Comments Groin Swelling * Auth/Cert (Routine) Specialty Diagnoses / Procedures Referred By Contac t Referred To Contact Diagnoses Scrotal abscess Perineal abscess FOUNIER'S GANGRENE Procedures na Referral ID Status Reason Start Date Expiration Date Visits Re quested Visits Authorized [id number] 1 1 Encounter Details Date Type Department Care Team (Late st Contact Info) Description 03/10/2023 7:30 AM CDT - 03/10/2023 9:10 AM CDT Surgery [facility] Operating Room [address] [place] [address] Hans Negron MD [address] [place] [address] DEBRIDEMENT PERINEAL WOUND Surgery Details Date/Time Status Location OR Service Patient Class Case Cl ass Case Type Trauma Case? 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 Gender Identity Not on file Sexual Orientation Not on file documented as of this encounter Last Filed Vital Signs Vital Sign Reading Time Taken Comments Blood Pressure 138/78 03/10/2023 7:00 AM CDT Pulse 86 03/10/2023 7:00 AM CDT Temperature 36.4 ??C (97.5 ??F) 03/10/2023 4:00 AM CD T Respiratory Rate 0 03/10/2023 7:00 AM CDT Oxygen Saturation 95% 03/10/2023 7:00 AM CDT Inhaled Oxygen Concentration - - Weight 161.7 kg (356 lb 7.7 oz) 03/06/2023 7:40 PM CDT Height 198.1 cm (6' 6 ) 03/06/2023 7:40 PM CDT Body Mass Index 41.2 03/06/2023 7:40 PM CDT documented in this encounter Discharge Summaries * Ira Starks, TIN DIPPER - 03/25/2023 3:33 PM CDT Inpatient Discharge Summary BRIEF OVERVIEW Admitting Provider: Hans Negron MD Discharge Provider: Lamonte Guzmán MD Primary Care Physician at Discharge: Herb Burden MD [phone] Admission Date: 03/06/2023 Discharge Date: 03/25/2023 Admission Location: [facility] Problems/Diagnoses: Principal Problem: Scrotal abscess Active Problems: T1DM (type 1 diabetes mellitus) ([facility]) Diabetic foot ulcer (CMS/HCC) (HCC) Hypertension Vitamin D deficiency Anemia Class 3 obesity ([facility]) Resolved Problems: Yamila's gangrene Adjustment disorder DETAILS OF HOSPITAL STAY Presenting Problem/History of Present Illness: Mr. 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 He was started on clindamycin, cefe/vanc and transferred to [facility] on 03/06for urology evaluation. On presentation, he [...] sent. He was on martha, vanc at [facility]. His culture results are as follows: BCx [...] 42 year old male who presented to [facility] ED with a chief complaint of perineal / scrotal pain and swelling and a foot ulcer. CT there showed a perineal fluid collection / abscess with gas in the collection and he was transferred to [facility] for surgical care. Scrotal abscess Presented to [facility] ED with [...] Diabetic shoes with custom offloading inserts for joint terminal attack controller shoe gear. Home health RN to continue [...] as scheduled 04/01/23 at 10:40 am per [facility] Coordinator Ambulatory referral placed for follow up [...] XR Wrist Left 3 or More Views [[id number]] Collected: 03/13/231832 Order Status: Completed Updated: 03/13/231834 [...] Jeter MD Arterial Duplex Lower Extremity Bilateral [[id number]] Collected: 03/06/23 1352 Order Status: Completed Updated: 03/07/23 1224 Narrative: [facility] - Department of Vascular Surgery, Vascular Laboratory [address] [place] [address] [place] Lower Extremity Arterial Duplex Report Patient Name: RENE HYATT M : 1980 Study Date: 03/06/2023 1:52:30 PM Gender: M Tech: Location: [address] [place] [address].Provider: ANIL BIRMINGHAM Quality: Adequate Order Provider: ANIL BIRMINGHAM Procedures: Arterial Report: Bilateral Lower Extremity Arterial Duplex Exam. Indications: Left foot metatarsal base ulcer, and left big toe ulcer, did not know he has diabetes. Measurements: Right Lower Left Lower Measurement Value Units Measurement Value Units Rt LEAD CONSULTANT Dst PSV 93 cm/s Lt LEAD CONSULTANT Dst PSV 154 cm/s Rt Profunda Prx [...] Left Lower - Findings: Performing Director Of Marketing: Anca Alexis RVT ([place]). Right Common [...] Duplex imaging of the bilateral lower extremity chenega arteries reveals patent vessels with no flow [...] above. Electronically Signed By: Alberto Ching MD [facility] 2023-03-07 12:23:36 CDT CC: CC: US Arterial Doppler Lower Extremity Bilateral [[id number]] Collected: 03/06/23 1353 Order Status: Completed Updated: 03/07/23 1241 Narrative: [facility] - Department of Vascular Surgery, Vascular Laboratory [address] [place] [address] Lower Extremity Arterial Doppler Report Patient Name: RENE HYATT M : 1980 Study Date: 03/06/2023 1:53:00 PM Gender: M Tech: Anca Alexis [facility] Location: [facility] Ref.Provider: ANIL BIRMINGHAM Quality: Adequate Order Provider: ANIL BIRMINGHAM Procedures: Arterial Report: Bilateral lower extremity arterial Doppler exam at rest. Indications: Left foot metatarsal base ulcer, and left big toe ulcer, did not know he has diabetes, bilateral leg swelling. Measurements: Right - Left - Measurement Value Units Measurement Value Units Rt Brachial Pressure 100 mmHg Lt Brachial Pressure 110 mmHg Rt POTATO LOADER Pressure 162 mmHg Lt POTATO LOADER Pressure 158 mmHg Rt DPA Pressure 159 [...] Left - - Findings: Performing Director Of Marketing: Anca Alexis RVT ([place]). Bilateral All [...] above. Electronically Signed By: Alberto Ching MD [facility] 2023-03-07 12:41:16 CDT CC: CC: XR Foot Left 3 or More Views [[id number]] Collected: 03/06/23714 Order Status: Completed Updated: 03/06/23728 [...] Javier Owusu M.D. AG: AG Report ID: [id number] Reading Location: [id number] XR Chest 1 Vw Portable [[id number]] Collected: 03/06/23654 Order Status: Completed Updated: 03/06/23657 [...] Electronically signed by Wander García M.D. RB: RB Report ID: [id number] Reading Location: [id number] CT Abdomen Pelvis W Contrast [[id number]] Collected: 03/06/23634 Order Status: Completed Updated: 03/06/23648 [...] Registered Dietitian. Additional resources available from the [place] [employer] can be found at www.diabetes.org/nutrition [...] under water untilcompletely healed. Home Health agency: [facility] Home Health (P: [phone]) You should be contacted by the home health care agency within 1-2 days regarding scheduling a visit. If you don't hear from them, please call the number listed above to follow-up. Thank you Discharge Medications: Current Medications TAKE these medications ivoesayknjdax-vjxemcq-zlisxcrs 250-250-65 mg per tablet Take 1 tablet [...] Contact Information for Follow-ups Dr. Herb Burden [facility] [address] [place] [address] Next Steps: Go on 04/01/2023 Instructions: Your appointment is at 10:40 AM. Please arrive 15 minutes early. Bring a photo ID, insurance card and a list of any current medications with you to the appointment. [facility] Home Care Services Specialty: Home Health and Hospice [address] [facility] [address] Next Steps: Follow up Questions: Service Line: [...] fall risk Referral Status: Some Visits Scheduled [facility] (All Locations) Next Steps: Follow up Questions: Please select the performing region: [facility] (All Locations) # of visits: [...] Registered Dietitian. Additional resources available from the [place] [employer] can be found at www.diabetes.org/nutrition * Appointments* Graham Salmeron, RN - 03/11/2023 11:56 AM CDT * Discharge Instr - Other Orders* Graham Salmeron, RN - 03/24/2023 11:41 AM CDT Home Health agency: [facility] Home Health (P: [phone]) You should be contacted by the home [...] times a day 60 tablet 1 03/25/2023 12/06/202 4 atorvastatin (LIPITOR) 20 mg tablet Take 1 tablet (20 mg total) by mouth nightly 30 tablet 1 03/25/2023 4 documented in this encounter Discharge Disposition Disposition Code Departure Means Destination Comment s Discharge to home, home heal th skilled care [facility] HOME HEALTH documented in this encounter [...] discharge needs arise, please contact the covering Employee Counselor. 03/09/23 8020 Discharge Summary Discharge Disposition Private residence Equipment/Provider Needs No Home Needs Identified;Home Provider Services Needs Identified Home Care Agency Information Home Care Agency Type #1: Senior Living Home Care Agency Name [facility] Home Health Home Care Agency Phone Number [phone] Home Care Agency Contact Spoken to Eric Home Care Agency Order Faxed to [facility] Second Home Care Agency Used? Not Needed Discharge Additional Assistance Financial assistance Discharge medication assistance needed Does the patient need discharge transport arranged? Yes Has discharge transport been arranged? Yes Details of Transportation [facility] to patient's home Trip #[phone] D/C Transport Anticipated Date 03/25/23 D/C Transport [...] are agreeable with plan. * Ira Starks TIN DIPPER - 03/25/2023 3:03 PM CDT Daily Progress Note Division of [facility] Medicine Name: Rene Hyatt : 1980 Today's Date: March 25, 2023 Age: 42 y.o. male Admission: 03/06/2023 Bed: [id number] LOS: 19 days Subjective Chief complaint: Scrotal [...] losartan 25 03/17 Diabetic foot ulcer (CMS/HCC) ([facility]) Assessment & Plan Wound to planter 1st [...] diabetic shoes with custom offloading inserts for senior living sheogear - Heel strike shoe is causing [...] x 2 months and calcium supplementation for [id number]. - plan for vit d 2k daily [...] Patient was seen and examined with the TIN DIPPER on 03/25/2023. Agree with the assessment and [...] not assigned to this patient, please call [phone]. Multi-Disciplinary Problems (from Occupational Therapy) Active Problems [...] Goal Details: Mod I * Ira Starks TIN DIPPER - 03/24/2023 5:18 PM CDT Daily Progress Note Division of Hospital Medicine Name: Rene Hyatt : 1980 Today's Date: March 24, 2023 Age: 42 y.o. male Admission: 03/06/2023 Bed: [id number] LOS: 18 days Subjective Chief complaint: Scrotal [...] wound. Urology notified. Recommend betadine solution and RECRUITMENT ASSISTANT. Scrotal drain removed today. CM following for [...] losartan 25 03/17 Diabetic foot ulcer (CMS/HCC) ([facility]) Assessment & Plan Wound to planter 1st [...] diabetic shoes with custom offloading inserts for senior living sheogear - Heel strike shoe is causing [...] x 2 months and calcium supplementation for r7itsonr. - plan for vit d 2k daily after 50k loading phase - f/u with PCP Code status : Full Code Diet : Adult Diet Restricted; Consistent Carbohydrate PT/OT Dispo Rec : PT Recommendation/Plan: Inpatient Rehab Facility / OT Recommendation: Inpatient Rehab Facility Supplementary Attestation The total encounter time on this service date was 50 minutes which was spent performing a yylb-ql-dfim encounter and personally completing the provider-level activities [...] Patient was seen and examined with the TIN DIPPER on 03/24/2023. Agree with the assessment and plan as outlined above. * File, Vianey Mcduffie NP - 03/24/2023 10:08 AM CDT Urology Progress Note Rene Hyatt : 1980 Subjective 42 year old male with perineal/scrotal pain and swelling transferred from [facility] with concern for Yamila's gangrene. He was [...] Age: 42 y.o. male Admission: 03/06/2023 Bed: [id number] LOS: 17 days Subjective Chief complaint: Scrotal abscess Interval History NAEON. Patient upset regarding inability to go to [facility]. following for assistance, patient would prefer [...] 03/21 AM T1DM (type 1 diabetes mellitus) ([facility]) Assessment & Plan Newly diagnosed this admission. [...] losartan 25 03/17 Diabetic foot ulcer (CMS/HCC) ([facility]) Assessment & Plan Wound to planter 1st [...] diabetic shoes with custom offloading inserts for joint terminal attack controller sheogear - Heel strike shoe is causing [...] x 2 months and calcium supplementation for [id number]. - plan for vit d 2k daily after 50k loading phase - f/u with PCP Code status : Full Code Diet : Adult Diet Restricted; Consistent Carbohydrate PT/OT Dispo Rec : PT Recommendation/Plan: Inpatient Rehab Facility / OT Recommendation: Inpatient Rehab Facility Supplementary Attestation The total encounter time on this service date was 51 minutes which was spent performing a mlxq-zm-mcrt encounter and personally completing the provider-level activities [...] Salmeron, RN - 03/23/2023 11:21 AM CDT Employee Counselor noted patient has been recommended for IPR by PT/OT. Employee Counselor met with the patientat bedside to discussion recommendations by therapy and to work on a potential discharge disposition plan since patient is not an IPR rehab candidate per [employer]. Employee Counselor provided education to patient on therapy recommendations and home health services. Patient reported he was interested in home health. material control manager provided a home health list to patient and family. Patient and family selected the following choices (preference order): NO PREFERENCE material control manager sent out referrals via [employer]. CM awaiting acceptance from a home health agency and willcontinue to work on discharge planning with patient and family. Patient not wishing to discharge to a SNF at this time and wishes to discharge to home with Home Health services if available. Stanton Salmeron [employer] For emergent Case Management needs before 7 AM or after 3:30 PM Thursday-Thursday, please call the manager payroll. For weekend and holiday Case Management needs from the hours of 8:00 AM to 4:30 PM, please see EpicTreatment team the assigned weekend Employee Counselor. * Riya Madison, PT - 03/23/2023 9:00 [...] treatment team and contact the PT or POTATO LOADER currently assigned to this patient. If a physical therapy clinician is not assigned to this patient, please call [phone]. 03/23/23 0900 PT Last Visit Session Type [...] achieve his goals of independence and resume reheater tasksfor his mother. Basic Mobility - 6 [...] not assigned to this patient, please call [phone]. 03/23/23 0756 General Session Type Treatment OT [...] not assigned to this patient, please call [phone]. 03/23/23 0756 General Session Type Treatment OT [...] Age: 42 y.o. male Admission: 03/06/2023 Bed: [id number] LOS: 16 days Subjective Chief complaint: Perineal [...] Scrotal abscess Assessment & Plan Presented to [facility] ED with scrotal pain and swelling concerning [...] bleeding -CTM Hgb Diabetic foot ulcer (CMS/HCC) ([facility]) Assessment & Plan Wound to planter 1st metatarsal head. S/p debridement with podiatry 03/07, significant depth but negative probe to bone. L foot XR with no OM - continue daily dressing changes - WBAT in heel strike shoe per PT - follow up in wound center at discharge - diabetic shoes with custom offloading inserts for senior living sheogear - Heel strike shoe is causing [...] with PCP T1DM (type 1 diabetes mellitus) ([facility]) Assessment & Plan Endocrinology following and currently [...] 24 minutes which was spent performing a ccbj-xq-gqeb encounter and personally completing the provider-level activities [...] Age: 42 y.o. male Admission: 03/06/2023 Bed: [id number] LOS: 15 days Subjective Chief complaint: Perineal [...] bleeding -CTM Hgb Diabetic foot ulcer (CMS/HCC) ([facility]) Assessment & Plan Wound to planter 1st metatarsal head. S/p debridement with podiatry 03/07, significant depth but negative probe to bone. L foot XR with no OM - continue daily dressing changes - WBAT in heel strike shoe per PT - follow up in wound center at discharge - diabetic shoes with custom offloading inserts for senior living sheogear - Heel strike shoe is causing [...] with PCP T1DM (type 1 diabetes mellitus) ([facility]) Assessment & Plan Endocrinology following and currently [...] 27 minutes which was spent performing a wyvx-wp-lrut encounter and personally completing the provider-level activities [...] AM CDT Daily Progress Note Division of [facility] Medicine Name: Rene Hyatt : 1980 Today's Date: March 20, 2023 Age: 42 y.o. male Admission: 03/06/2023 Bed: [place] [id number] LOS: 14 days Subjective Chief complaint: Perineal [...] bleeding -CTM Hgb Diabetic foot ulcer (CMS/HCC) ([facility]) Assessment & Plan Wound to planter 1st metatarsal head. S/p debridement with podiatry 03/07, significant depth but negative probe to bone. L foot XR with no OM - continue daily dressing changes - WBAT in heel strike shoe per PT - follow up in wound center at discharge - diabetic shoes with custom offloading inserts for joint terminal attack controller sheogear - Heel strike shoe is causing [...] with PCP T1DM (type 1 diabetes mellitus) ([facility]) Assessment & Plan Endocrinology following and currently [...] 33 minutes which was spent performing a wafq-ap-hqzn encounter and personally completing the provider-level activities documented in the note. This includes time spent prior to the visit and after the visit in direct care of the patient. This time does not include time spent in any separately reportable services. Luis Daniel Hanna NP Cosigned by Evy Chong, MD at 03/21/2023 10:32 AM CDT Associated [...] Age: 42 y.o. male Admission: 03/06/2023 Bed: [id number] LOS: 13 days Subjective Chief complaint: Perineal [...] of bleeding -CTM Hgb Diabetic foot ulcer ([facility]/HCC) ([facility]) Assessment & Plan Wound to planter 1st metatarsal head. S/p debridement with podiatry 03/07, significant depth but negative probe to bone. L foot XR with no OM - continue daily dressing changes - WBAT in heel strike shoe per PT - follow up in wound center at discharge - diabetic shoes with custom offloading inserts for senior living sheogear - Heel strike shoe is causing [...] with PCP T1DM (type 1 diabetes mellitus) ([facility]) Assessment & Plan Endocrinology following and currently [...] 33 minutes which was spent performing a hxla-fx-blcj encounter and personally completing the provider-level activities [...] treatment team and contact the PT or POTATO LOADER currently assigned to this patient. If a physical therapy clinician is not assigned to this patient, please call [phone]. 03/19/23 0944 PT Last Visit Session Type [...] Age: 42 y.o. male Admission: 03/06/2023 Bed: [id number] LOS: 12 days Subjective Chief complaint: Perineal abscess Interval History Patient is alert and awake on eval this AM. He has no specific complaint or question. Chair has been delivered, propellant charge zone assembler assisting with acquisition of boot. Objective Scheduled [...] of urinal in bed Class 3 obesity ([facility]) Assessment & Plan Complicates all aspects of [...] of bleeding -CTM Hgb Diabetic foot ulcer ([facility]/HCC) ([facility]) Assessment & Plan Wound to planter 1st metatarsal head. S/p debridement with podiatry 03/07, significant depth but negative probe to bone. L foot XR with no OM - continue daily dressing changes - WBAT in heel strike shoe per PT - follow up in wound center at discharge - diabetic shoes with custom offloading inserts for joint terminal attack controller sheogear - Heel strike shoe is causing [...] with PCP T1DM (type 1 diabetes mellitus) ([facility]) Assessment & Plan Endocrinology following and currently [...] Age: 42 y.o. male Admission: 03/06/2023 Bed: [id number] LOS: 11 days Subjective Chief complaint: Perineal [...] of urinal in bed Class 3 obesity ([facility]) Assessment & Plan Complicates all aspects of [...] of bleeding -CTM Hgb Diabetic foot ulcer ([facility]/HCC) ([facility]) Assessment & Plan Wound to planter 1st metatarsal head. S/p debridement with podiatry 03/07, significant depth but negative probe to bone. L foot XR with no OM - continue daily dressing changes - WBAT in heel strike shoe per PT - follow up in wound center at discharge - diabetic shoes with custom offloading inserts for senior living sheogear - Heel strike shoe is causing the patient difficulty walking, collaborating with PT, nursing, DM re: solutions Vitamin D deficiency Assessment & Plan Undetectable Vit D Level - continue vit d 50k international units twice weekly and calcium supplementation for x3 months. - plan for vit d 2k daily after 50k loading phase - f/u with PCP T1DM (type 1 diabetes mellitus) ([facility]) Assessment & Plan Endocrinology following and currently [...] treatment team and contact the PT or POTATO LOADER currently assigned to this patient. If a physical therapy clinician is not assigned to this patient, please call [phone]. 03/17/23 0907 PT Last Visit Session Type [...] Age: 42 y.o. male Admission: 03/06/2023 Bed: [place] [id number]/[id number] LOS: 10 days Subjective Chief complaint: Perineal [...] with scrotal pain and swelling concerning for Yaimla's gangrene. PT denies SIRS. With neutrophilic leukocytosis [...] bleeding -CTM Hgb Diabetic foot ulcer (CMS/HCC) ([facility]) Assessment & Plan Wound to planter 1st metatarsal head. S/p debridement with podiatry 03/07, significant depth but negative probe to bone. L foot XR with no OM - continue daily dressing changes - WBAT in heel strike shoe per PT - follow up in wound center at discharge - diabetic shoes with custom offloading inserts for joint terminal attack controller sheogear Vitamin D deficiency Assessment & Plan Undetectable Vit D Level - continue vit d 50k international units twice weekly and calcium supplementation for x3 months. - plan for vit d 2k daily after 50k loading phase - f/u with PCP Diabetes mellitus, new onset (CMS/HCC) ([facility]) Assessment & Plan Endocrinology following and currently [...] the findings and plan of care. * Katarina, Vianey Mcduffie NP - 03/16/2023 12:21 PM [...] Age: 42 y.o. male Admission: 03/06/2023 Bed: [place] [id number]/[id number] LOS: 9 days Subjective Chief complaint: Perineal [...] Scrotal abscess Assessment & Plan Presented to [facility] ED with scrotal pain and swelling concerning [...] daily (03/15-) Diabetes mellitus, new onset (CMS/HCC) ([facility]) Assessment & Plan Endocrinology following and currently on basal bolus regimen - cont lantus 20, lispro 10 per endocrinology recs - continue atorvastatin 20 mg daily - patient seen by DM educator Anemia Assessment & Plan Hgb 11.2 and BL 10-11. No signs of bleeding -CTM Hgb Diabetic foot ulcer (CMS/HCC) (FORMERLY [facility]) Assessment & Plan Woun d to planter 1st metatarsal head. S/p debridement with podiatry 03/07, significant depth but negative probe to bone. L foot XR with no OM - continue daily dressing changes - WBAT in heel strike shoe per PT - follow up in wound center at discharge - diabetic shoes with custom offloading inserts for joint terminal attack controller sheogear Vitamin D deficiency Assessment & Plan [...] None Prior Function Prior Function Level of Sauk: Independent with ADLs, Independent functional transfers, Independent [...] name and address after me: Marcos Mcpherson [address] [place] [address] Without looking at the clock, tell me [...] not assigned to this patient, please call [phone]. * Luis Alfredo Donaldson MD - 03/14/2023 11:37 AM CDT Urology Progress Note eRne Hyatt : 1980 Subjective Interval History: Afebrile, [...] Age: 42 y.o. male Admission: 03/06/2023 Bed: [id number] LOS: 8 days Subjective Chief complaint: Perineal [...] continue Unasyn Diabetes mellitus, new onset (CMS/HCC) ([facility]) Assessment & Plan Endocrinology following and currently on basal bolus regimen - cont lantus 20, lispro 10 per endocrinology recs - continue atorvastatin 20 mg daily - patient seen by DM educator Anemia Assessment & Plan Hgb 11.2 and BL 10-11. No signs of bleeding -CTM Hgb Diabetic foot ulcer (CMS/HCC) ([facility]) Assessment & Plan S/p debridement with podiatry. 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 male Admission: 03/06/2023 Bed: [place] [id number] LOS: 7 days Subjective Chief complaint: Perineal [...] Meds Infusions acetaminophen, 1,000 mg, oral, Q6H [facility] ampicillin-sulbactam, 3 g, intravenous, Q6H ASTON atorvastatin, [...] deanne chians and inguinal regions. S/p OR . with urology and ACCS for I&D of [...] Vitals(24hr Range): Vitals: 03/12/23 1711 03/12/23 1811 03/12/230 03/13/23 05 BP: 152/72 153/74 122/58 138/65 BP Location: [...] Age: 42 y.o. male Admission: 03/06/2023 Bed: [id number] LOS: 6 days Subjective Chief complaint: Perineal [...] continue Unasyn Diabetes mellitus, new onset (CMS/HCC) ([facility]) Assessment & Plan Endocrinology following and currently on basal bolus regimen - cont lantus 20, lispro 6 per endocrinology recs - continue atorvastatin 20 mg daily - patient seen by DM educator Anemia Assessment & Plan Hgb 11.2 and BL 10-11. No signs of bleeding -CTM Hgb Diabetic foot ulcer (CMS/HCC) ([facility]) Assessment & Plan S/p debridement with podiatry. [...] 45 minutes which was spent performing a rkyi-xi-ylhv encounter and personally completing the provider-level activities [...] on KARLA. Wound good for closure from [facility] perspective. Dagoberto Paredes MD Resident Physician General Surgery ACCS Inpatient Consult ACCS ED Consult [facility] Outpatient Clinic - option 1 * Adelita Benoit MD - 03/12/2023 9:00 AM CDT Urology Progress Note Rnee Hyatt : 1980 Subjective Interval History: NAEO, [...] Age: 42 y.o. male Admission: 03/06/2023 Bed: [id number] LOS: 5 days Subjective Chief complaint: Scrotal [...] 20 G Right Antecubital (Active) Peripheral IV 10/01/23 20 G Anterior;Distal;Right Forearm (Active) Urethral Catheter [...] following, plan for OR tomorrow, NPO at [place] - wound care recs per urology Diabetes mellitus, new onset (CMS/HCC) ([facility]) Assessment & Plan Endocrinology following and currently on basal bolus regimen - cont lantus 20, lispro 6 per endocrinology recs - start atorva 20 - patient seen by DM educator Anemia Assessment & Plan Hgb 11.2 and BL 10-11. No signs of bleeding -CTM Hgb Diabetic foot ulcer (CMS/HCC) ([facility]) Assessment & Plan S/p debridement with podiatry. [...] 45 minutes which was spent performing a cdfv-zs-fvsc encounter and personally completing the provider-level activities [...] 42 y.o. male Admit Date: 03/06/2023 Bed: [place] [id number] LOS: 4 days Subjective Rene Hyatt is a 42 y.o. male with chief complaint of scrotal abscess. HPI Mr. 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 He was started on clindamycin, cefe/vanc and transferred to [facility] on 03/06for urology evaluation. On presentation, he [...] sent. He was on martha, vanc at [facility]. His culture results are as follows: BCx [...] on File Prior to Encounter Medication Sig ourqlpgfvitob-gbvclhh-gvscccde (EXCEDRIN MIGRAINE) 250-250-65 mg per tablet Take [...] % Intake/Output Summary (Last 24 hours) at 03/10/20232142 Last data filed at 03/10/2023 1531 Gross [...] 6 per endocrinology recs -start atorva 20 -personal development educator consulted * Scrotal abscess Assessment & [...] Scrotal abscess Surgical ICU Daily Progress Team: [facility] 2 AM Subjective Patient is a [...] ENDO: #Diabetes POA, new diagnosis c/b DKA -personal development educator consulted -endocrine diabetes consulted -SSI, mealtime [...] plan with the patient's team and other medical/supervisor home energy consultant staff. This time was in addition [...] evaluation of I/O's, vitals and oxygen requirements throughoutshift. Multiple bedside evaluations of patients over all [...] Admission Medication Sig Dispense Refill Last Dose nllhvcvilpqyb-yreyunm-tiwnvfrg (EXCEDRIN MIGRAINE) 250-250-65 mg per tablet Take [...] (mmHg): [86-99] 97 Intake/Output: Date 03/08/231899 - 03/09/23 0603/09/23 07 - 03/10/23 0659 Shift 9068-0083 24 Hour Total 4465-9983 1418-6588 24 Hour Total INTAKE P.O. 480 960 I.V.(mL/kg) 222(1.4) IV Piggyback 100 1004 633 633 Shift Total(mL/kg) 580(3.6) 2186(13.5) 633(3.9) 633(3.9) OUTPUT Urine(mL/kg/hr) 1025 1875 1325(0.7) 1325 Emesis/NG output 100 100 Drains 400 400 Stool 250 250 Shift Total(mL/kg) 1275(7.9) 2125(13.1) 1725(10.7) 100(0.6) 1825(11.3) NET -695 26 -1092 -100 -1192 Weight (kg) 161.7 161.7 [...] -BMI 39. 7 -consult nutrition and DM magnetic doctor ENDO: #Hyperglycemia:POA #DKA: POA -AGMA on admission, [...] Skin Infection:POA -24h Clinda complete -Vanc complete 10/1 -Martha Lab Results Component Value Date WBC [...] diabetic shoes with custom offloading inserts for senior living sheogear 03/07:Duplex imaging of the bilateral lower extremity chenega arteries reveals patent vessels with no flow limiting lesions identified Culture Results: No data to display Lab Results Component Value Date MICROBIOLOGY (.) 03/06/2023 Preliminary Report: Moderate Streptococcus anginosus For susceptibility results, refer to accession number [id number] on the scrotum tissue culture from 03/06/2023 Few Mixed aerobic and anaerobic microorganisms MICROBIOLOGY (.) 03/06/2023 Preliminary Report: Moderate Streptococcus anginosus Few Mixed aerobic and anaerobic microorganisms MICROBIOLOGY (.) 03/06/2023 Preliminary Report: Abundant Streptococcus anginosus For susceptibility results, refer to accession number [id number] on the scrotum tissue culture from 03/06/2023 [...] plan with the patient's team and other medical/supervisor home energy consultant staff. This time was in addition to and separate from care provided by other practitioners on this day of service. * Marcos Browne NP - 03/09/2023 7:52 AM CDTAssociated Order(s): Critical Care Post-Procedure Diagnose(s): Scrotal abscess Surgical ICU Daily Progress Team: OTHER [place] 2 AM Subjective Patient is a 42 [...] and possible partial wound closure. NPO at [place], T+S tonight -Wound care consulted for assistance [...] carb Bowel regimen: Doc/Senna #Nausea/vomiting -noted 10/2 am -PRN zofran IV 1st line -PRN compazine IV 2nd line ENDO: #Diabetes POA, new diagnosis c/b DKA -personal development educator consulted -endocrine diabetes consulted -SSI, mealtime [...] plan with the patient's team and other medical/supervisor home energy consultant staff. This time was in addition [...] 1,000 mg, 1,000 mg, oral, Q6H [facility], Matheus Frias PA, 1,000 mg at 03/09/23522 [...] 0-10 Units, 0-10 Units, subcutaneous, Q4H [facility], Mckayla Iyer NP, 2 Units at 03/09/23 0333 insulin NPH (HumuLIN N, NovoLIN N) 100 unit/mL injection 8 Units, 8 Units, subcutaneous, Q8H, Mckayla Iyer NP, 8 Units at 03/09/23 0014 meropenem (MERREM) 2,000 mg/120 mL in sodium chloride 0.9% (premix) 2,000 mg, 2,000 mg, intravenous, Q8H [facility], Matheus Frias PA, Stopped at 03/09/23 0555 [...] Daikins or Vashe - Anticipate transfer to [facility] - Appreciate excellent ICU care James Lai [...] necrotizing skin infection. Events: -reapplied w/v seal 2/ stool -low Vit D level-started daily tx [...] Admission Medication Sig Dispense Refill Last Dose qykvzlvnhalfw-ypxqyvt-ckjlywtc (EXCEDRIN MIGRAINE) 250-250-65 mg per tablet Take [...] 0659 03/08/23 07 - 03/09/23 0659 Shift 4677-2659 24 Hour Total 1881-0146 7430-6262 24 Hour Total INTAKE P.O. 1000 1000 [...] -BMI 39. 7 -consult nutrition and DM magnetic doctor ENDO: #Hyperglycemia:POA #DKA: POA -AGMA on admission, [...] diabetic shoes with custom offloading inserts for joint terminal attack controller sheogear 03/07:Duplex imaging of the bilateral lower extremity chenega arteries reveals patent vessels with no flow limiting lesions identified Culture Results: No data to display Lab Results Component Value Date MICROBIOLOGY (.) 03/06/2023 Preliminary Report: Moderate Streptococcus anginosus For susceptibility results, refer to accession number [id number] on the scrotum tissue culture from 03/06/2023 MICROBIOLOGY (.) 03/06/2023 Preliminary Report: Moderate Streptococcus anginosus Susceptibility testing results to follow. Few Mixed microorganisms. MICROBIOLOGY (.) 03/06/2023 Preliminary Report: Moderate Streptococcus anginosus For susceptibility results, refer to accession number [id number] on the scrotum tissue culture from 03/06/2023 [...] plan with the patient's team and other medical/supervisor home energy consultant staff. 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 Pt is independent at [...] treatment team and contact the PT or POTATO LOADER currently assigned to this patient. If a physical therapy clinician is not assigned to this patient, please call [phone]. * Mckayla Iyer TIN DIPPER - 03/08/2023 8:55 AM CDTAssociated Order(s): Critical Care Post-Procedure Diagnose(s): Scrotal abscess Surgical ICU Daily Progress Team: [facility] 2 AM Subjective Patient is a 42 y.o. male admitted on 03/06/2023 10:24 AM with chief complaint of DKA. Interval History: -Transitioned off insulin gtt to 8u NPH W2mmpzq and SSI -once taking in more nutrition [...] Component Value Date HGBA1C 13.3 (H) 03/06/2023 -personal development educator consulted -endocrine diabetes consulted -transition off insulin gtt this AM, 8u NPH L5umedh with SSI -once consistently taking in PO [...] Goals of care: FULL CODE Mckayla Iyer [facility] Critical Care Performed by: Mckayla Iyer NP [...] plan with the patient's team and other medical/supervisor home energy consultant staff. 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 mother and she has been [...] Daily-2100, Matheus Frias PA, 40 mg at 03/07/23 194 insulin regular in 0.9% sodium chloride (MYXREDLIN) [...] Daily, Matheus Frias, ELLA, 1 tablet at 03/08/23 0815 vancomycin (VANCOCIN) 2,250 mg in sodium chloride 0.9% 500 mL IVPB, 15 mg/kg, intravenous, Q12H, Matheus Frias PA, Last Rate: 261.3 mL/hr at 03/08/23716, 2,250 mg at 03/08/23716 24hr Min/Max: Temp Min: 36.7 ??C (98.1 ??F) Max: 37.2 ??C (99 ??F) Pulse Min: 78 Max: 96 BP Min: 104/50 Max: 132/74 Resp Min: 10 Max: 21 SpO2 Min: 93 % Max: 100 % Most Recent: Vitals: 03/08/23699 BP: 127/71 Pulse: 87 Resp: 16 Temp: [...] Villafuerte MD - 03/08/2023 5:47 AM CDT [facility] Acute Care Emergency Surgery Consult [...] mg, oral, BID, 100 mg at 03/07/23 1949 OR docusate(COLACE) 10 mg/mL oral liquid 100 [...] ASTON, Matheus Frias PA, Stopped at 03/07/23 230 oxyCODONE (ROXICODONE) tablet 5 mg, 5 mg, [...] the OR on 03/07. Please call the [facility] Inpatient Consult Phone with any questions or concerns regarding this patient. Bijan Villafuerte MD Resident Physician General Surgery ACCS Inpatient Consult ACCS ED Consult [facility] Outpatient Clinic - option 1 Cosigned by [...] and Critical Care Surgery Department of Surgery [facility] [employer] * Matheus Frias PA - 03/07/2023 9:04 PM CDTAssociated Order(s): Critical Care Post-Procedure Diagnose(s): Scrotal abscess; Perineal abscess Images from the original note were not included. ICU History and Physical Team: Other PM Subjective Patient is a 42 y.o. male presented to the ICU with chief complaint of necrotizing skin infection. Events: -3g Ca -Vanc Random 629 -DM T1 labs reordered 629 -d/c dilaudid [...] Admission Medication Sig Dispense Refill Last Dose sgdyvpbayaiph-xydtsrr-jdzwioau (EXCEDRIN MIGRAINE) 250-250-65 mg per tablet Take [...] 119 Intake/Output: Date 03/06/231899 - 03/07/2365803/07/23699 - 03/08/2359 Shift 8678-4514 24 Hour Total 8809-5977 6929-3875 24 Hour Total INTAKE P.O. 990 990 [...] -BMI 39. 7 -consult nutrition and DM magnetic doctor ENDO: #Hyperglycemia:POA #DKA: POA -AGMA on admission, [...] diabetic shoes with custom offloading inserts for senior living sheogear 03/07:Duplex imaging of the bilateral lower extremity chenega arteries reveals patent vessels with no flow [...] plan with the patient's team and other medical/supervisor home energy consultant staff. This time was in addition [...] Rice MD - 03/07/2023 9:02 PM CDT [facility] Acute Care Emergency Surgery Consult [...] 1,000 mg, 1,000 mg, oral, Q6H [facility], Matheus Frias PA, 1,000 mg at 03/07/23 [...] or lesions Labs/Imaging: Recent Labs Lab Units 03/06/235 03/06/23 0535 WBC K/cumm 21.3* 17.3* HEMOGLOBIN [...] ACCS will follow peripherally Please call the [facility] Inpatient Consult Phone with any questions or concerns regarding this patient. 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 OBJECTIVE: Current Facility-Administered Medications: acetaminophen (TYLENOL) tablet 1,000 mg, 1,000 mg, oral, Q6H Rodriguez CLANCY Shawn C., ELLA, 1,000 mg at 03/07/23 0607 clindamycin (CLEOCIN) [...] Units, intravenous, Q1H PRN, 4 Units at 03/06/232155 AND POCT glucose, , , q1h AND POCT glucose, , , q2h, Matheus Frias PA meropenem (MERREM) 2,000 mg/120 mL in sodium chloride 0.9% (premix) 2,000 mg, 2,000 mg, intravenous, Q8H [facility]ON, Matheus Frias PA, Stopped at 03/07/23 0530 oxyCODONE (ROXICODONE) tablet 5 mg, 5 mg, oral, Q4H PRN, Deanna Thompson MD PhD, 5 mg at 03/06/232249 senna (SENOKOT) tablet 1 tablet, 1 tablet, [...] Scrotal abscess Surgical ICU Daily Progress Team: [facility] 2 AM Subjective Patient is a [...] continue gtt post op until gap closed -personal development educator and endocrine diabetes consulted -send c-peptide [...] Component Value Date HGBA1C 13.3 (H) 03/06/2023 -personal development educator consulted -endocrine diabetes consulted RENAL: Cr [...] Goals of care: FULL CODE Mckayla Iyer [facility] Critical Care Performed by: Mckayla Iyer NP Authorized by: Mckayal Iyer NP CRITICAL CARE: Team: OTHER Shift: [...] plan with the ICU team and other medical/supervisor home energy consultant staff, making frequent assessments and decisions [...] 42 y.o. male who presented to the [place] ED with perineal/scrotal pain and swelling and a foot ulcer. CT there showed a perineal fluid collection/abscess with gas in the collection and he was transferred to [facility] for surgical care. Prior to coming to [...] Current Outpatient Medications Medication Sig Dispense Refill xfyqxpnqhuxbo-qhhbtkt-efeqlmql (EXCEDRIN MIGRAINE) 250-250-65 mg per tablet Take [...] Wander García M.D. RB: SALLY Report ID: [id number] Reading Location: [place] [address] Assessment and Plan: Rene Hyatt is a [...] hesitate to contact us by paging the industrial controller urology resident. Jamari Whitfield MD 03/06/23 Urology [...] Admission Medication Sig Dispense Refill Last Dose lhyzbxhifhfda-oxcxvhs-dzlkuzok (EXCEDRIN MIGRAINE) 250-250-65 mg per tablet Take [...] Admitted) 03/06/23 07 - 03/07/23 0659 Shift 1401-2406 24 Hour Total 2840-3913 7959-5895 24 Hour Total INTAKE I.V. 1600(10.3) 1600(10.3) [...] -BMI 39. 7 -consult nutrition and DM magnetic doctor ENDO: #Hyperglycemia:POA #DKA: POA -AGMA on admission, [...] plan with the ICU team and other medical/supervisor home energy consultant staff, making frequent assessments and decisions [...] given his presentation, who was transferred from [facility] for scrotal swelling, scrotal abscess and possible [...] BUN SERUM mg/dL 17 CREATININE mg/dL 0.83 HKS-KBE-FJLZAWR mL/min/1.73 m2 >90 CALCIUM mg/dL 8.5 Recent [...] Carbohydrate Diet effective now Question Answer Comment ([facility]) Diet type Restricted Diabetic: Consistent Carbohydrate 03/12/23 [...] Registered Dietitian. Additional resources available from the [place] [employer] can be found at www.diabetes.org/nutrition [...] Registered Dietitian. Additional resources available from the [place] [employer] can be found at www.diabetes.org/nutrition Marina Royal MS, RD, [facility], Cell * Marina Royal RD - 03/16/2023 2:22 PM CDT NUTRITION ASSESSMENT Nutrition Status: Patient appears adequately nourished at this time. REASON FOR ASSESSMENT: Consult/Referral - Diet Education Encounter Date: 03/16/23 2:22 PM Admission Date: 03/06/2023 LOS: 10 days HPI: Pt is a 42-year-old male previously healthy, probably diabetic given his presentation, who was transferred from [facility] for scrotal swelling, scrotal abscess and possible [...] CREATININE mg/dL 0.83 < > 0.68* 0.56* TWM-CFZ-MZCZNYJ mL/min/1.73 m2 >90 < > >90 >90 [...] Carbohydrate Diet effective now Question Answer Comment ([facility]) Diet type Restricted Diabetic: Consistent Carbohydrate 03/12/23 [...] Registered Dietitian. Additional resources available from the [place] [employer] can be found at www.diabetes.org/nutrition [...] Registered Dietitian. Additional resources available from the [place] [employer] can be found at www.diabetes.org/nutrition [...] [facility] Wound Ostomy Team General W/O number: [phone] * Marina Royal RD - 03/11/2023 10:16 [...] [facility] Wound Ostomy Team General W/O number: [phone] * Kim Byrne RD - 03/09/2023 9:31 AM CDTAssociated Order(s): IP CONSULT TO NUTRITION SERVICES NUTRITION ASSESSMENT Nutrition Status: Patient appears adequately nourished at this time. REASON FOR ASSESSMENT: Consult/Referral - Diet Education Encounter Date: 03/09/23 9:32 AM Admission Date: 03/06/2023 LOS: 3 days HPI: Pt is a 42-year-old male previously healthy, probably diabetic given his presentation, who was transferred from [facility] for scrotal swelling, scrotal abscess and possible [...] CREATININE mg/dL 0.60* 0.73* See Comment 0.77* SLV-GYD-CZQMUPY mL/min/1.73 m2 >90 >90 See Comment >90 [...] tray Diet effective now Question Answer Comment ([facility]) Diet type Restricted Diabetic: Consistent Carbohydrate Other Services: No juice on tray 03/08/23 0854 Allergies: Reviewed. IMPRESSION: Saw pt for consult regarding diabetes education. Pt reports a good appetite POTATO LOADER. Appete has been down today and pt [...] Registered Dietitian. Additional resources available from the [place] [employer] can be found at www.diabetes.org/nutrition [...] worsened over time and presented toED at [place]. In addition he also reported non healing [...] surgical history on file. HOME MEDICATIONS : hjhvsacatpqrw-dikvntt-vuaqhedv (EXCEDRIN MIGRAINE) 250-250-65 mg per tablet aspirin 325 mg tablet doxycycline 100 mg capsule traMADoL (ULTRAM) 50 mg tablet Current Facility-Administered Medications Ordered in [facility] Medication Dose Route Frequency Provider Last Rate Last Admin acetaminophen (TYLENOL) tablet 1,000 mg 1,000 mg oral Q6H Matheus Duffy PA 1,000 mg at 03/09/23 0523 calcium [...] tube BID Matheus Frias PA 100 mgat 03/06/237 enoxaparin (LOVENOX) syringe 40 mg 40 mg subcutaneous Q12H [facility] Javier Starks NP 40 mg at 03/09/23 0840 ergocalciferol (VITAMIN D) capsule 50,000 Units 50,000 Units oral Weekly Matheus Frias PA 50,000 Units at 03/09/23 0008 insulin lispro (HumaLOG, ADMELOG) 100 unit/mL injection 0-10 Units 0-10 Units subcutaneous Q4H [facility] Mckayla Iyer NP 2 Units at 03/09/23 [...] mg 2,000 mg intravenous Q8H [facility] Matheus Frias PA Stopped at 03/09/23 0555 ondansetron (ZOFRAN) injection 4 mg 4 mg intravenous Q4H PRN Marcos Bronwe NP 4 mg at 03/09/23 0841 oxyCODONE [...] PA Stopped at 03/09/23 0717 No current [facility]-ordered outpatient medications on file. Anti-infectives (From admission, [...] degrees Pulse: 90 91 86 86 Resp: 18 Temp: 37.1 ??C (98.7 ??F) TempSrc: [...] For susceptibility results, refer to accession number [id number] on the scrotum tissue culture from 03/06/2023 MICROBIOLOGY (.) 03/06/2023 Preliminary Report: Moderate Streptococcus anginosus Susceptibility testing results to follow. Few Mixed microorganisms. MICROBIOLOGY (.) 03/06/2023 Preliminary Report: Moderate Streptococcus anginosus For susceptibility results, refer to accession number [id number] on the scrotum tissue culture from 03/06/2023 [...] Virologic Testing: HIV Screen:No results found for: [id number] CD4:No results found for: CD4ABS , CD4PCT Common Virologic Results: No results found for: TXN1IZU , CD4ABS , CD4PCT , NUCLEOSRT , [...] PM CDTAssociated Order(s): IP CONSULT TO PODIATRY [facility] Physicians Podiatric Surgery Subjective: Patient [...] 1,000 mg, oral, Q6H Rodriguez CLANCY Shawn C. PA, 1,000 mg at 03/07/23 1122 dextrose [...] Measurement Value Units Measurement Value Units Rt LEAD CONSULTANT Dst PSV 93 cm/s Lt LEAD CONSULTANT Dst PSV 154 cm/s Rt Profunda Prx [...] Left Lower - Findings: Performing Director Of Marketing: Anca Alexis RVT ([place]). Right Common [...] Duplex imaging of the bilateral lower extremity chenega arteries reveals patent vessels with no flow [...] mmHg Lt Brachial Pressure 110 mmHg Rt POTATO LOADER Pressure 162 mmHg Lt POTATO LOADER Pressure 158 mmHg Rt DPA Pressure 159 [...] Left - - Findings: Performing Director Of Marketing: Anca Alexis RVT (Jackson). Bilateral All [...] diabetic shoes with custom offloading inserts for senior living sheogear - Discussed proper pedal care in [...] discharge. Moody Saab DPM Voice recognition software wumo was used to dictate/transcribe this document. Tip Cementer variances may occur. Despite proofreading, typographical, grammatical and syntax errors may occur. * Toby Teresa MD - 03/07/2023 1:01 PM CDT Endocrinology & Diabetes Consult Note Patient: Rene Hyatt, 42 y.o. male (: 1980) Room: [place] [address] [address] ( ) LOS: 1 Consult Question: DKA [...] liquids Recent Labs Lab Units 03/07/23 2243 03/07/23202803/07/23 20203/07/23 1908 03/07/23 1708 03/07/23 1649 03/07/23 1605 [...] , PTH , 25HYDROVITD , CPEPTIDE , KTA94CB , IA2AB Lab Results Component Value Date [...] (Diabetes Center Scheduling: ) - recommend asking natural resources extension educator to assess patient inpatient -- Toby [...] not have insurance and resides in [place] - may need to establish medicine clinic here, where medications would be subsidized, consider Basal/Bolus ( potentially 70/30 Reli-on [employer] pens) and metformin. Social Work aware. 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 male who presented to the [facility] ED with perineal/scrotal pain and swelling and a foot ulcer. CT there showed a perineal fluid collection/abscess with gas in the collection and he was transferred to [facility] for surgical care. Prior to coming to [...] Current Outpatient Medications Medication Sig Dispense Refill pzexndxiwrqwh-blhhdem-lwuwgxuq (EXCEDRIN MIGRAINE) 250-250-65 mg per tablet Take [...] Wander García M.D. RB: SALLY Report ID: [id number] Reading Location: [id number] Assessment and Plan: Rene Hyatt is a [...] hesitate to contact us by paging the industrial controller urology resident. Jamari Whitfield MD 03/06/23 Urology [...] from the original note were not included. [facility] Acute Care Surgery Consult Reason [...] follow. Staffed with Dr. Alexander Cloud at [facility]. Hans Doyle MD Department of General Surgery [facility] in [facility] Subjective HPI: Rene Hyatt is a [...] prompting his presentation to the ED at [facility]. A CT abdomen/pelvis was obtained there which [...] hospital. The patient has been transferred to [facility] for possible intervention. Upon assessment of the patient, his tissue infection appears largely confined to his scrotum. Of note, the patient has not been previously diagnosed with diabetes until today. He has non-healing left foot wounds, some of which have been present for several years. A left foot x-ray performed at [facility] did not have evidence of osteomyelitis. History [...] Javier Owusu M.D. AG: JUSTINA Report ID: [id number] Reading Location: [id number] XR Chest 1 Vw Portable EXAM DESCRIPTION: [...] Wander García M.D. RB: SALLY Report ID: [id number] Reading Location: [id number] CT Abdomen Pelvis W Contrast EXAM DESCRIPTION: [...] Wander García M.D. RB: SALLY Report ID: [id number] Reading Location: [id number] Cosigned by Alexander Cloud MD at 03/09/2023 [...] Diabetic ulcer Date First Assessed/Time First Assessed: 03/06/23722 Present on Hospital Admission: Yes Wound Type: [...] site rotation Consults Made Dietitian Consults Recommended Riveting Machine Operator Automatic Discharge Recommendations Insulin Pen Humalog Kwik Pen (pkg of 5);Lantus Solostar Pre-filled Pen (pkg of 5) Non-Insulin Pen Trulicity Pen Pen [facility] Ultra fine 5 mm Glucometer (Glucocard shine meter was provided.) Test Strips (glucocard shine strips) Lancets Lancets Blood Glucose Testing Regimen 4 times per day (premeals, at bedtime, and prn) Diabetes/Education Follow Up Primary Care Provider;Riveting Machine Operator Automatic;Outpatient Diabetes Education Additional Recommendations Home Health followup [...] site rotation Consults Made Dietitian Consults Recommended Riveting Machine Operator Automatic Discharge Recommendations Additional Recommendations Home Health followup [...] is ready to be see again. Jacques TIN DIPPER and Naveen TIN DIPPER aware. If patient is discharged prior to seeing personal development educator, please have nurse provide diabetes education [...] site rotation Consults Made Dietitian Consults Recommended Riveting Machine Operator Automatic Discharge Recommendations Insulin Pen Humalog Kwik Pen (pkg of 5);Lantus Solostar Pre-filled Pen (pkg of 5) Pen [facility] Ultra fine 5 mm Glucometer (Provided a [...] site rotation Consults Made Dietitian Consults Recommended Riveting Machine Operator Automatic Discharge Recommendations Insulin Pen (TBD) Non-Insulin Pen (TBD) Blood Glucose Testing Regimen (TBD) Diabetes/Education Follow Up (TBD) Met with patient. Patient has not received his glucometer supplies yet. Patient's discharge date and medication regimen undetermined at this time. Per patient, he is going to OR tomorrow. certified diabetes educator will return for additional teaching on Thursday (03/12/2023). * Rigo Doyle RN - 03/11/2023 9:21 AM CDT 03/11/23 0920 Pre-Education Assessment Time In 0920 Home Supplies Yes needs assistance (Currently, patient has no medical insurance.) Inpatient Recommendations RN to practice with patient Injections;Fingersticks RN to reinforce with patient Consistent carb diet;Carb counting;Insulin dose calculation;Insulin injection site rotation Consults Made Dietitian Consults Recommended Riveting Machine Operator Automatic Patient's discharge medication regimen undetermined at this [...] given his presentation, who was transferred from [facility] for scrotal swelling, scrotal abscess and possible [...] given his presentation, who was transferred from [facility] for scrotal swelling, 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 By: Anil Birmingham MD Time: 03/06 1156 Comment: Urology examined patient, assessment is that [...] floor. By: Anil Birmingham MD Time: 03/06 6138 Comment: SOCIAL: patient's mother is paraplegic, patient is worried about her and does not have a cellphone. I called her and updated her on her son's situation, stating that he will require OR. She is worried and would like us to update her on any advancement that occurs, especially post-op. 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 First noted perineal discomfort progressed to scrotal swelling + pain over last two weeks. Presented to [facility] this morning with WBC 17.3 elevated CRP/ESR, glucose 300s (not diagnosed diabetic), CT concerning for scrotal abscess vs NSTI. Start on vanc/cefe/clinda and received 3L IVF prior to transfer. Here AOx3 c/o scrotal pain, also noted deep ulcers x2 to L foot which probe to bone (plain films obtained at [facility]). Will provide pain control, continue abx, discuss [...] RN - 03/06/2023 10:24 AM CDT Bed: [facility] Expected date: 03/06/23 Expected time: 7:56 AM Means of arrival: Ambulance Comments: Mary Rogers RN 03/06/23 1024 documented in this encounter Miscellaneous Notes * Plan of Care - Kateryna Martinez, CHRISTINA - 03/25/2023 5:01 PM CDT SW received call from hospital nursing coal and ash supervisor, Hima regarding pt. It was SW understanding, [...] medical needs are met. DIPIKA has informed warehouse shift supervisor SW of pt's return and will collaborate with CCSW in the morning. CÉSAR Levi, ACUTE CARE OCCUPATIONAL THERAPIST * Plan of Care - Clara Carrizales [...] & referrals made/in place: Current referrals include: NILESH SN with [facility] Home Health (P: [phone]) Support following discharge: Friends and [facility] Transportation: [facility] (P: [phone] Trip: [id number] Time: 3:00 PM on 03/25). Patient's neighbor Kemal will allow EMS crew into home. With permission from patient, CYNTHIA spoke to Kemal (P: [phone]) who states that he will be available to let the EMS crew into the home. CM provided [facility] with contact information for Kemal. F/U [...] discharge planning as needed. Please see the [facility] Treatment Team for the patient's assigned Employee Counselor. * Plan of Care - Eric Wolf, RN - 03/25/2023 9:59 AM CDT Call placed to patient's phone. Interviewed patient via phone and discussed [facility] PEDIATRIC SPORTS MEDICINE SPECIALIST services. Confirmed homebound status and verified patient is currently not active with any other PEDIATRIC SPORTS MEDICINE SPECIALIST. Informed patient that staff will be calling [...] Hyatt, 42 y.o. male (: 1980) Room: [place] [address] [address] ( ) LOS: 19 Rene Hyatt is [...] 25HYDROVITD <6 (L) 03/08/2023 CPEPTIDE 2.24 03/08/2023 [id number] 0.31 (H) 03/09/2023 Lab Results Component Value [...] Hodge NP Endocrinology, Metabolism, & Lipid Research [phone] Contact Info: New Consults: [phone]) General Endocrine (Non-Diabetes): [phone] (Check 'Treatment Team' assignment for Diabetes 1 vs 2 vs 3) Diabetes After-Hours & Weekends: Diabetes Fellow [phone] or [phone] * Plan of Care - Yancy Stephenson [...] & referrals made/in place: Current referrals include: [facility] with [facility] Home Health (P: [phone]) Support following discharge: Friends and [facility] Transportation: [employer] (P: [phone] Trip: [phone] Time: 11:30 AM on 03/25). Patient's neighbor Kemal will allow EMS crew into home. With permission from patient, CM spoke to Kemal (P: [phone]) who states that he will be available tomorrow to let the EMS crew into the home. CM provided [facility] with contact information for Kemal. F/U [...] discharge planning as needed. Please see the [facility] Treatment Team for the patient's assigned Employee Counselor. * Plan of Care - Tom Diane LCSW - 03/24/2023 12:47 PM CDT SW contacted to speak to this patient about [place] insulation worker apprentice services. SW provided with written information about the program and the closest state office near his home- in [place], [place]. Sw also spoke briefly to the [...] LCSW * Plan of Care - Eric Wolf RN - 03/24/2023 10:28 AM CDT [facility] Home Health consult received for SN/ Wound Care services. [facility] Home Care agency accepted patientwith projected start of care 03/27/2023 with completed referral and discharge. Graham MARIE, notified. * Plan of Care - Fannie Celaya - 03/24/2023 9:57 AM CDT CRC scheduled follow up appointment for patient with PCP. Information is on AVS & below: [facility]: [facility] Date of Appt: 04.01.2023 Time of Appt: 10:40 AM Provider: Bertram Celaya [facility] Community Top Lift Scourer [phone] * Consults, Subsequent - Mack Frazier MD PhD - 03/24/2023 9:43 AM CDT Endocrinology & Diabetes Progress Note Patient: Rene Hyatt, 42 y.o. male (: 1980) Room: [place] [address] [address] ( ) LOS: 18 Rene Hyatt is [...] 25HYDROVITD <6 (L) 03/08/2023 CPEPTIDE 2.24 03/08/2023 [id number] 0.31 (H) 03/09/2023 Lab Results Component Value [...] MD PhD Endocrinology, Metabolism, & Lipid Research [phone] Contact Info: New Consults: [phone]) General Endocrine (Non-Diabetes): [phone] (Check 'Treatment Team' assignment for Diabetes 1 vs 2 vs 3) Diabetes After-Hours & Weekends: Diabetes Fellow [phone] or [phone] * Plan of Care - Annamarie Giron RN - 03/24/2023 6:04 AM CDT Goals: Maintain comfort and safety, pain management ,monitor BG * Plan of Care - Marina Washington, RN - 03/23/2023 5:30 PM CDT Goals: [...] Progressing * Plan of Care - Eric Wolf RN - 03/23/2023 3:27 PM CDT [facility] is unable to staff patient without an established PCP. Anabel MARIE., notified. CYNTHIA to outsource for home health services. * Consults, Subsequent - Mack Frazier MD PhD - 03/23/2023 9:53 AM CDT Endocrinology & Diabetes Progress Note Patient: Rene Hyatt, 42 y.o. male (: 1980) Room: [place] [address] [address] ( ) LOS: 17 Rene Hyatt is [...] 25HYDROVITD <6 (L) 03/08/2023 CPEPTIDE 2.24 03/08/2023 [id number] 0.31 (H) 03/09/2023 Lab Results Component Value [...] MD PhD Endocrinology, Metabolism, & Lipid Research [phone] Contact Info: New Consults: [phone]) General Endocrine (Non-Diabetes): [phone] (Check 'Treatment Team' assignment for Diabetes 1 vs 2 vs 3) Diabetes After-Hours & Weekends: Diabetes Fellow [phone] or [phone] * Plan of Care - Marcos Link [...] home environment Outcome: Progressing * Plan of Elfego - Luz Elena Gentile RN - 03/22/2023 [...] home environment Outcome: Progressing * Plan of Elfego - Marcos Link RN - 03/21/2023 9:28 [...] Hyatt, 42 y.o. male (: 1980) Room: [place] [address] ( ) LOS: 14 Rene Hyatt is [...] 25HYDROVITD <6 (L) 03/08/2023 CPEPTIDE 2.24 03/08/2023 [id number] 0.31 (H) 03/09/2023 Lab Results Component Value [...] vitamin D undetectable - Would recommend starting 21249GU increase to twice weekly x2 months. Would [...] Field MD Endocrinology, Metabolism, & Lipid Research [phone] Contact Info: New Consults: [phone]) General Endocrine (Non-Diabetes): [phone] (Check 'Treatment Team' assignment for Diabetes 1 vs 2 vs 3) Diabetes After-Hours & Weekends: Diabetes Fellow [phone] or [phone] * Plan of Care - Elysia Clarke [...] Hyatt, 42 y.o. male (: 1980) Room: [place] [address] ( ) LOS: 13 Rene Hyatt is [...] 25HYDROVITD <6 (L) 03/08/2023 CPEPTIDE 2.24 03/08/2023 [id number] 0.31 (H) 03/09/2023 Lab Results Component Value [...] vitamin D undetectable - Would recommend starting 10705ZT increase to twice weekly x2 months. Would [...] & Lipid Research Contact Info: New Consults: [phone]) General Endocrine (Non-Diabetes): [phone] (Check 'Treatment Team' assignment for Diabetes 1 vs 2 vs 3) Diabetes After-Hours & Weekends: Diabetes Fellow [phone] or [phone] * Plan of Care - Rachel Cosme [...] PM CDT At patient's request, SW contacted [facility] animal services ([phone] ext [phone]) regarding checking in on the cats at the home. SW was advised that in this case, PD would need to go to the home to check on them (animal services does not have room for cats at this time). SW relayed this information to patient and provided non-emergency phone number for [facility] PD. Patient reported that rosyid not want to do anything without his mother's permission due to it being her home. SW was able to speak with patient's mother, Savannah, via her RN at [facility]. Savannah gave permission for SW/patient to contact PD and request a visit to the home. SW contacted [facility] PD non-emergency after hours line ([phone]) and requested non-urgent visit to the home to check on the cats. SW was connected with an Officer Marisa, who reported that a city outboard motor inspector and an officer had been at the home this morning and had spoken with patient's neighbor(Kemal Worrell @ [phone]). Kemal has been feeding the cats since patient's/Savannah's hospitalizations. Officer Marisa advised that patient/Savannah would be notified of the results from the city inspection, either by the outboard motor inspector or by Feeder/Folder Phil. SW provided RN station phone number as a back up in case they could not reach patient via his cell phone. SW presented to bedside and informed patient (and Savannah, who was on the phone) of the above. Provided Kmeal's phone number and encouraged patient to call [...] in home environment Outcome: Progressing * Consults, David - Margarita Hodge NP - 03/18/2023 11:18 AM CDT Endocrinology & Diabetes Progress Note Patient: Rene Hyatt, 42 y.o. male (: 1980) Room: [place] [address] [address] ( ) LOS: 12 Rene Hyatt is [...] 25HYDROVITD <6 (L) 03/08/2023 CPEPTIDE 2.24 03/08/2023 [id number] 0.31 (H) 03/09/2023 Lab Results Component Value [...] vitamin D undetectable - Would recommend starting 32252OB increase to twice weekly x2 months. Would [...] & Lipid Research Contact Info: New Consults: [phone]) General Endocrine (Non-Diabetes): [phone] (Check 'Treatment Team' assignment for Diabetes 1 vs 2 vs 3) Diabetes After-Hours & Weekends: Diabetes Fellow [phone] or [phone] * Plan of Care - Nan Tamayo [...] home environment Outcome: Progressing * Plan of Elfego - Rosibel Lyons LCSW - 03/17/2023 9:19 AM CDT SW contacted [facility] ([phone]) and requested that staff provide patient's room [...] CM will send updated therapy notes to [facility] when available, [facility] to review for possible Medicaid pending [...] discharge needs arise please contact the covering bottle caser. * Assessment & Plan Note - Luis [...] Hyatt, 42 y.o. male (: 1980) Room: [place] [address] [address] ( ) LOS: 10 Rene Hyatt is [...] vitamin D undetectable - Would recommend starting 06165HW increaes to twice weekly x2 months. Would also maintenance dose of 2000IU daily. ## Discharge Planning Use ???Adult END Diabetes Discharge?? Order Set Glargine (or other basal insulin) + GLP1 agonist if affordable + metformin 500mg BID - If the patient would like to be seen in the Diabetes Center, we will request an outpatient appointment. (Diabetes Center Scheduling: ) - recommend asking natural resources extension educator to assess patient inpatient -- Domonique Blake MD Endocrinology, Metabolism, & Lipid Research Contact Info: New Consults: [phone]) General Endocrine (Non-Diabetes): [phone] (Check 'Treatment Team' assignment for Diabetes 1 vs 2 vs 3) Diabetes After-Hours & Weekends: Diabetes Fellow [phone] or [phone] * Plan of Care - Rona Grant [...] 42 year old male who presented to [facility] ED with a chief complaint of perineal / scrotal pain and swelling and a foot ulcer. CT there showed a perineal fluid collection / abscess with gas in the collection and he was transferred to [facility] for surgical care. Scrotal abscess Presented to [facility] ED with scrotal pain and swelling concerning [...] Diabetic shoes with custom offloading inserts for senior living shoe gear. Home health RN to continue [...] For susceptibility results, refer to accession number [id number] on the scrotum abscess culture from 03/10/2023 MICROBIOLOGY (.) 03/10/2023 Preliminary Report: Few Mixed microorganisms. Includes the following: Rare Destiny glabrata Susceptibility testing results to follow. MICROBIOLOGY (.) 03/06/2023 Preliminary Report - Final Review Pending: Moderate Streptococcus anginosus For susceptibility results, refer to accession number [id number] on the scrotum tissue culture from 03/06/2023 Few Mixed aerobic and anaerobic microorganisms MICROBIOLOGY (.) 03/06/2023 Preliminary Report - Final Review Pending: Moderate Streptococcus anginosus Few Mixed aerobic and anaerobic microorganisms MICROBIOLOGY (.) 03/06/2023 Preliminary Report - Final Review Pending: Abundant Streptococcus anginosus For susceptibility results, refer to accession number [id number] on the scrotum tissue culture from 03/06/2023 [...] decrease Outcome: Progressing * Consults, Subsequent - Raul Acosta, Subha Carolina MD - 03/14/2023 9:14 AM CDT Infectious Disease Subsequent Consult Note Infectious Disease Team: General 4 Contact Information: Please see [facility] Treatment Team listing for up-to-date contact [...] For susceptibility results, refer to accession number [id number] on the scrotum tissue culture from 03/06/2023 Few Mixed aerobic and anaerobic microorganisms MICROBIOLOGY (.) 03/06/2023 Preliminary Report - Final Review Pending: Moderate Streptococcus anginosus Few Mixed aerobic and anaerobic microorganisms MICROBIOLOGY (.) 03/06/2023 Preliminary Report - Final Review Pending: Abundant Streptococcus anginosus For susceptibility results, refer to accession number [id number] on the scrotum tissue culture from 03/06/2023 [...] Hyatt, 42 y.o. male (: 1980) Room: [place] [address] ( ) LOS: 7 Rene Hyatt is [...] 25HYDROVITD <6 (L) 03/08/2023 CPEPTIDE 2.24 03/08/2023 [id number] 0.33 (H) 03/08/2023 [id number] 0.32 (H) 03/08/2023 Lab Results Component Value [...] vitamin D undetectable - Would recommend starting 03212IB increaes to twice weekly x2 months. Would also maintenance dose of 2000IU daily. ## Discharge Planning Use ???Adult END Diabetes Discharge?? Order Set Glargine (or other basal insulin) + GLP1 agonist if affordable + metformin 500mg BID - If the patient would like to be seen in the Diabetes Center, we will request an outpatient appointment. (Diabetes Center Scheduling: ) - recommend asking natural resources extension educator to assess patient inpatient -- Alban Butler MD Endocrinology, Metabolism, & Lipid Research Contact Info: New Consults: [phone]) General Endocrine (Non-Diabetes): [phone] (Check 'Treatment Team' assignment for Diabetes 1 vs 2 vs 3) Diabetes After-Hours & Weekends: Diabetes Fellow [phone] or [phone] * Plan of Care - Rosibel Lyons, ACUTE CARE OCCUPATIONAL THERAPIST - 03/13/2023 11:42 AM CDT SW met [...] with his mother and to check through [facility] as to presence of hotline/investigation. SW called [facility] ([phone]) where mother currently resides. SW spoke with bookkeeper receptionist, who stated that patients do not have phones in their rooms. SW inquired as to whether mother couldcome to the desk to speak with SW (via wheelchair/assist from RN). Leak Inspector stated that she didn't know anything about the patient. SW then attempted to reach mother via phone numbers available, but only one was in service ([phone]) and it was the home phone. SW called [facility] again and requested to speak with mother's RN. Was informed that RN did not answer the page and welcomed another call from SW later on. Called [facility] to check on presence of hotline/investigation. SW remained on hold for15 minutes and then disconnected. SW will make additional attempt at a later time. ADDENDUM 1501 DIPIKA called [facility] ([phone]) and requested to speak with assigned RN [...] been taken to hospital and Savannah to [facility]), at which point SW suggested that it was likely a welfare check. SW asked whether Savannah had received a call from [employer] -- she denied this. At Savannah's request, SW provided own contact information as well as the hospital/unit where patient was located. SW was instructed by SNF RN that best [...] For susceptibility results, refer to accession number [id number] on the scrotum tissue culture from 03/06/2023 Few Mixed aerobic and anaerobic microorganisms MICROBIOLOGY (.) 03/06/2023 Preliminary Report - Final Review Pending: Moderate Streptococcus anginosus Few Mixed aerobic and anaerobic microorganisms MICROBIOLOGY (.) 03/06/2023 Preliminary Report - Final Review Pending: Abundant Streptococcus anginosus For susceptibility results, refer to accession number [id number] on the scrotum tissue culture from 03/06/2023 [...] Pt is uninsured,(has been seen by [employer] service support representative) pt has no PCP. Support:Mother Transportation:TBD F/U appointment:Appointment to be addressed prior to discharge. ADD:03/17/2023 Goal/Plan: Collaboration with patient/family, clinical team to identify discharge needs to assure interventions completed for safe discharge and continuum of care, and that patient/family are agreeable with.; Case Management will follow for planning and referrals as needed. If any further discharge needs arise please contact the covering bottle caser. * Plan of Care - Bethany Saravia [...] Shift: Get procedure, receive abx * Consults, David - Sterling Negron MD - 03/12/2023 8:03 PM CDT Endocrinology & Diabetes Progress Note Patient: Rene Hyatt, 42 y.o. male (: 1980) Room: [place] [address] [address] ( ) LOS: 6 Rene Hyatt is [...] 25HYDROVITD <6 (L) 03/08/2023 CPEPTIDE 2.24 03/08/2023 [id number] 0.33 (H) 03/08/2023 [id number] 0.32 (H) 03/08/2023 Lab Results Component Value [...] vitamin D undetectable - Would recommend starting [id number] weekly x3 months. Then maintenance dose of 2000IU daily. ## Discharge Planning Use ???Adult END Diabetes Discharge?? Order Set Glargine (or other basal insulin) + GLP1 agonist if affordable + metformin 500mg BID - If the patient would like to be seen in the Diabetes Center, we will request an outpatient appointment. (Diabetes Center Scheduling: ) - recommend asking natural resources extension educator to assess patient inpatient -- Sterling Negron MD Endocrinology, Metabolism, & Lipid Research Contact Info: New Consults: [phone]) General Endocrine (Non-Diabetes): [phone] (Check 'Treatment Team' assignment for Diabetes 1 vs 2 vs 3) Diabetes After-Hours & Weekends: Diabetes Fellow [phone] or [phone] Cosigned by Domonique Blake MD at 03/12/2023 [...] of fibrinous exudate weredebrided sharply. A 19 Romanian round drain was placed into the wound [...] MD - Fellow Anesthesiologist: Lisa Carrion MD FIELD SERVICE ANALYST: Rona Rendon CRNA; Hope Mays CRNA Student Nurse Steel Melter: Hannah Thompson Flat Sorter Processor: Vianey Bhakta RN Flat Sorter Processor Relief: Vianey Burch RN Scrub Relief: Vianey [...] will improve Outcome: Progressing * Plan of Rosibel Harrison LCSW - 03/11/2023 4:12 PM CDT SW [...] do so. Rosibel Lyons LCSW * Consults, David - Sterling Negron MD - 03/11/2023 12:35 PM CDT Endocrinology & Diabetes Progress Note Patient: Rene Hyatt, 42 y.o. male (: 1980) Room: [place] [address] [address] ( ) LOS: 5 Rene Hyatt is [...] 25HYDROVITD <6 (L) 03/08/2023 CPEPTIDE 2.24 03/08/2023 [id number] 0.33 (H) 03/08/2023 Lab Results Component Value [...] vitamin D undetectable - Would recommend starting 61551JF weekly x3 months. Then maintenance dose of 2000IU daily. ## Discharge Planning Use ???Adult END Diabetes Discharge?? Order Set Glargine (or other basal insulin) + GLP1 agonist if affordable + metformin 500mg BID - If the patient would like to be seen in the Diabetes Center, we will request an outpatient appointment. (Diabetes Center Scheduling: ) - recommend asking natural resources extension educator to assess patient inpatient -- Sterling Negron MD Endocrinology, Metabolism, & Lipid Research Contact Info: New Consults: [phone]) General Endocrine (Non-Diabetes): [phone] (Check 'Treatment Team' assignment for Diabetes 1 vs 2 vs 3) Diabetes After-Hours & Weekends: Diabetes Fellow [phone] or [phone] Cosigned by Domonique Blake MD at 03/11/2023 [...] provided contact information on AVS. Fannie Celaya [facility] Community Top Lift Scourer [phone] * Consults, Subsequent - Subha Butler MD - 03/11/2023 9:02 AM CDT Infectious Disease Subsequent Consult Note Infectious Disease Team: General 4 Contact Information: Please see [facility] Treatment Team listing for up-to-date contact [...] For susceptibility results, refer to accession number [id number] on the scrotum tissue culture from 03/06/2023 Few Mixed aerobic and anaerobic microorganisms MICROBIOLOGY (.) 03/06/2023 Preliminary Report - Final Review Pending: Moderate Streptococcus anginosus Few Mixed aerobic and anaerobic microorganisms MICROBIOLOGY (.) 03/06/2023 Preliminary Report - Final Review Pending: Abundant Streptococcus anginosus For susceptibility results, refer to accession number [id number] on the scrotum tissue culture from 03/06/2023 [...] diabetic shoes with custom offloading inserts for joint terminal attack controller sheogear - Heel strike shoe is causing [...] x 2 months and calcium supplementation for c5qisazd. - plan for vit d 2k daily [...] weekly * Assessment & Plan Note - uSsan Epps MD - 03/10/2023 8:36 PM CDT [...] Hyatt, 42 y.o. male (: 1980) Room: [place] [address] ( ) LOS: 4 Rene Hyatt is a 42 y.o. male with type 2 DM admitted with DKA and endocrine is consulted to help with DKA management. Interval Events & Subjective Patient had no acute events overnight. They are feeling well this afternoon, had some vomiting thismorning. Endorsed poor sleep. Tolerating diet. He reports that he lives in [place] [facility]. He is uninsured [...] vitamin D undetectable - Would recommend starting 90550XC weekly x3 months. Then maintenance dose of 2000IU daily. ## Discharge Planning Use ???Adult END Diabetes Discharge?? Order Set - If the patient would like to be seen in the Diabetes Center, we will request an outpatient appointment. (Diabetes Center Scheduling: ) - recommend asking natural resources extension educator to assess patient inpatient -- Sterling Negron MD Endocrinology, Metabolism, & Lipid Research Contact Info: New Consults: [phone]) General Endocrine (Non-Diabetes): [phone] (Check 'Treatment Team' assignment for Diabetes 1 vs 2 vs 3) Diabetes After-Hours & Weekends: Diabetes Fellow [phone] or [phone] Cosigned by Domonique Blake MD at 03/10/2023 [...] called to the hospitalist service. QUESTIONS? Call [phone] ([phone]). * Plan of Care - Luis [...] palpable abnormality on KARLA - Wound measured [id number] at conclusion OPERATIVE NOTE: Patient was identified [...] for his paraplegic mother, Savannah Hyatt, , life enrichment manager. Pt shared that his mother is currently staying at [facility] while pt is inpatient. Sent medicaid request to [employer] and provided financial services manager application at bedside. Pt denied additional needs. Pt verbally nominated mother, Savannah Hyatt, , as surrogate decision maker. SW will continue to follow for additional needs. CM to follow for discharge planning needs. Becca Almanza LMSW * Initial Assessments - Paula Austin RN - 03/09/2023 1:48 PM CDT CM Initial Assessment Interview Note Information Obtained From: Other (Specify) Name: Savannah Hyatt (Mother) [phone] (03/09/23 1346) Admission Source: home Impression: Patient [...] Coverage: self pay Prescription Coverage: No Pharmacy: [facility] - [address] [facility] [address] -verified Primary Care Provider: Yadira, Physician -verified Prior to Admission: Functional Status: Independent with ADLs Primary Caregiver: Self Support System: Parent (Savannah Hyatt (Mother) [phone]) Home Care Services: No Durable Medical Equipment: Walker (wheeled), Wheelchair ramp (belongs to patient's mother) Living Arrangements: Parent (patient was his mother's primary reheater.) Type of Residence: Private residence Steps in home?: No steps inside or outside Medication management: Independent (03/09/231345) Potential discharge needs include: Home Health: None (03/09/231345) Dialysis: Behavioral Health Services: Patient expects to be Discharged to: Private residence, (03/09/231345) Additional Information: Patient lives in a private residence with his mother. Patient is his mother's primary reheater. Patient's mother has MS and is unable to walk. Patient's father recently and that is when the patient became his mother's reheater and moved in with her. Address and [...] Collaboration with patient, MD, direct care nurse, Policy Checker, and other members of the health care team to assure needed interventions completed. 2. Return patient to optimal level of self-care post discharge. 3. Employee Counselor will follow for Discharge Planning - interventions [...] Hyatt, 42 y.o. male (: 1980) Room: [place] [address] [address] ( ) LOS: 3 Rene Hyatt is a 42 y.o. male with type 2 DM admitted with DKA and endocrine is consulted to help with DKA management. Interval Events & Subjective Patient had no acute events overnight. They are feeling well this afternoon, had some vomiting thismorning. Endorsed poor sleep. Tolerating diet. He reports that he lives in [place] [facility]. He is uninsured TDD: 33 BG range: 142-215 Diet: Adult Diet Restricted; Consistent Carbohydrate; No juice on tray NPO Diet Recent Labs Lab Units 03/09/23 0734 03/09/23 0329 03/09/23 0006 03/08/23205823 1934 03/08/23 1639 03/08/23 1203 03/08/23 0958 [...] labs, imaging, and diagnostics independently reviewed in [facility] and commented on below. No results found [...] vitamin D undetectable - Would recommend starting 05103NY weekly x3 months. Then maintenance dose of 2000IU daily. ## Discharge Planning Use ???Adult END Diabetes Discharge?? Order Set - If the patient would like to be seen in the Diabetes Center, we will request an outpatient appointment. (Diabetes Center Scheduling: ) - recommend asking natural resources extension educator to assess patient inpatient -- Sterling Negron MD Endocrinology, Metabolism, & Lipid Research Contact Info: New Consults: [phone]) General Endocrine (Non-Diabetes): [phone] (Check 'Treatment Team' assignment for Diabetes 1 vs 2 vs 3) Diabetes After-Hours & Weekends: Diabetes Fellow [phone] or [phone] Cosigned by Domonique Blake MD at 03/09/2023 [...] Hyatt, 42 y.o. male (: 1980) Room: [place] [address] ( ) LOS: 2 Rene Hyatt is [...] on tray Recent Labs Lab Units 03/08/23 2059 03/08/23 1934 03/08/23 1639 03/08/23 [...] (Diabetes Center Scheduling: ) - recommend asking natural resources extension educator to assess patient inpatient -- Toby Teresa MD Endocrinology, Metabolism, & Lipid Research Contact Info: New Consults: [phone]) General Endocrine (Non-Diabetes): [phone] (Check 'Treatment Team' assignment for Diabetes 1 vs 2 vs 3) Diabetes After-Hours & Weekends: Diabetes Fellow [phone] or [phone] Cosigned by Alban Butler MD at 03/09/2023 [...] 9:25 AM CDT OPERATIVE REPORT FACILITY ID: [facility] SURGEON Arnaldo Robles MD CARDROOM WORKER Adelita Lucas MD ANESTHESIA General PREOPERATIVE DIAGNOSES [...] deeper perineum and scrotum. Wound size was [id number] by the end of the case after [...] Q8H Matheus Duffy PA Stopped at 03/07/23 0609 dextrose gel [...] Thompson MD PhD 5 mg at 03/06/23 2250 [...] Wander García M.D. RB: SALLY Report ID: [id number] [place] Location: [id number] Assessment and Plan: Rene Hyatt is a [...] hesitate to contact us by paging the industrial controller urology resident. Adelita Benoit MD 03/07/23 Urology [...] and Critical Care Surgery Department of Surgery [facility] [phone] * Brief Op Note - Bijan Villafuerte [...] - Assisting Anesthesiologist: Gabriela Doyle MD PhD FIELD SERVICE ANALYST: Murray Chacon CRNA Airport Operations Specialist: Theodora Sarmiento MD Flat Sorter Processor: Nicole Veloz RN Scrub: Deanna Crocker [facility] Flat Sorter Processor: Rhoda Almaguer RN Flat Sorter Processor Second: Cookie Boston RN DATE OF SURGERY [...] the floor. By: Anil Birmingham MD Time: 03/064 Comment: SOCIAL: patient's mother is paraplegic, patient is worried about her and does not have a cellphone. I called her and updated her on her son's situation, stating that he will require OR. She is worried and would like us to update her on any advancement that occurs, especially post-op. 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 First noted perineal discomfort progressed to scrotal swelling + pain over last two weeks. Presented to [place] this morning with WBC 17.3 elevated CRP/ESR, glucose 300s (not diagnosed diabetic), CT concerning for scrotal abscess vs NSTI. Start on vanc/cefe/clinda and received 3L IVF prior to transfer. Here AOx3 c/o scrotal pain, also noted deep ulcers x2 to L foot which probe to bone (plain films obtained at [place]). Will provide pain control, continue abx, discuss [...] MD Loughman, Blaise Jackson, MD Resident 03/06/23 1439 * ED Procedure Note - Carolee Daly [...] AM CDT Pre-Arrival Note Pt coming from [facility] in [place] accepted by Dr. Ramirez from urology. Pt [...] DEVICE Routine 03/12/2023 1 :22 PM CDT POCT GLUCOSE DEVICE Routine 03/12/2023 9 :26 [...] CRITICAL CARE Routine 03/09/2023 8:22 PM CDT Yamial's gangrene POCT GLUCOSE DEVICE Routine 03/09/2023 4 [...] PM CDT POCT GLUCOSE DEVICE Routine 03/07/2023 4:05 PM CDT POCT GLUCOSE DEVICE Routine 03/07/2023 [...] CHECK SAMPLE STAT 03/06/2023 12:17 PM CDT [place] [facility] ILL/INJURED PATIENT INIT 30-74 MIN [...] DEVICE Fi nal Result Performing Organization Address [facility] Co de Phone Number [facility] [place] [address] * POCT glucose (03/25/2023 8:19 AM CDT) Glucose, POC 187 70 - 199 mg/dL Blood 03/25/2023 8:19 AM CDT 03/25/2023 8:19 AM CDT Lamonte Guzmán MD LAB POCT ORDERABLES - DEVICE Fi nal Result Performing Organization Address [facility] de Phone Number [facility] [place] [employer] [address] * POCT glucose (03/25/2023 4:51 AM CDT) Glucose, POC 198 70 - 199 mg/dL Blood 03/25/2023 4:51 AM CDT 03/25/2023 4:51 AM CDT Lamonte Guzmán MD LAB POCT ORDERABLES - DEVICE Fi nal Result Performing Organization Address [facility] Co de Phone Number [facility] [place] [employer] [address] * POCT glucose (03/25/2023 1:36 AM CDT) Glucose, POC 192 70 - 199 mg/dL Blood 03/25/2023 1:36 AM CDT 03/25/2023 1:36 AM CDT Lamonte Guzmán MD LAB POCT ORDERABLES - DEVICE Fi nal Result Performing Organization Address [facility] Co de Phone Number [facility] [place] [address] * POCT glucose (03/24/2023 9:47 PM CDT) Glucose, POC 163 70 - 199 mg/dL Blood 03/24/2023 9:4 7 PM CDT 03/24/2023 9:47 PM CDT us Lamonte Guzmán MD LAB POCT ORDERABLES - DEVICE Fi nal Result Performing Organization Address [facility] de Phone Number [facility] [place] [address] * POCT glucose (03/24/2023 4:50 PM CDT) Glucose, POC 155 70 - 199 mg/dL Blood 03/24/2023 4:50 PM CDT 03/24/2023 4:50 PM CDT us Lamonte Guzmán MD LAB POCT ORDERABLES - DEVICE Fi nal Result Performing Organization Address [facility] de Phone Number [facility] Department [place] [address] * POCT glucose (03/24/2023 1:22 PM CDT) Glucose, POC 153 70 - 199 mg/dL Blood 03/24/2023 1:22 PM CDT 03/24/2023 1:22 PM CDT Lamonte Guzmán MD LAB POCT ORDERABLES - DEVICE Fi nal Result Performing Organization Address [facility] Co de Phone Number [facility] [place] [address] * POCT glucose (03/24/2023 8:38 AM CDT) Glucose, POC 168 70 - 199 mg/dL Blood 03/24/2023 8:38 AM CDT 03/24/2023 8:38 AM CDT Lamonte Guzmán MD LAB POCT ORDERABLES - DEVICE Fi nal Result Performing Organization Address [facility] [place] [address] * POCT glucose (03/23/2023 8:35 PM CDT) Glucose, POC 159 70 - 199 mg/dL Blood 03/23/2023 8:35 PM CDT 03/23/2023 8:35 PM CDT Lamonte Guzmán MD LAB POCT ORDERABLES - DEVICE Fi nal Result Performing Organization Address [facility] Co de Phone Number [facility] Department [place] [address] * POCT glucose (03/23/2023 5:14 PM CDT) Glucose, POC 148 70 - 199 mg/dL Blood 03/23/2023 5:14 PM CDT 03/23/2023 5:14 PM CDT us Evy Chong MD LAB POCT ORDERA BLES - DEVICE Final Result Performing Organization Address [facility] Co de Phone Number [facility] [place] [address] * POCT glucose (03/23/2023 12:23 PM CDT) Glucose, POC 178 70 - 199 mg/dL Blood 03/23/2023 12:2 3 PM CDT 03/23/2023 12:23 PM CDT Evy Chong MD LAB POCT ORDERA BLES - DEVICE Final Result Performing Organization Address [facility] de Phone Number [facility] [place] [address] * POCT glucose (03/23/2023 9:02 AM CDT) Pathologist [facility] Glucose, POC 193 70 - 199 mg/dL Blood 03/23/2023 9:02 AM CDT 03/23/2023 9:02 AM CDT Result [facility] Evy Chong MD LAB POCT ORDERA BLES - DEVICE Final Result Performing Organization Address [facility] de Phone Number NICOLASA [facility] [place] [employer] [place] [address] * eGFR (03/22/2023 11:01 PM CDT) Pathologist [facility] eGFR [...] JARAMILLO LAB BLOOD ORDERABLES Shilpi montano Result [facility] Department [place] [address] * (ABNORMAL) Differential, auto (03/22/2023 11:01 PM CDT) Neutrophil abs 3.9 1.7 - 6.5 K/cumm Imm gran abs 0.0 0.0 - 0.1 K/cumm [facility] Lymphocyte abs 2.7 0.8 - 3.3 K/cumm [facility] Monocyte abs 0.6 0.2 - 0.8 K/cumm [facility] Eosinophil abs 0.6(H) 0.0 - 0.5 K/cumm [facility] Basophil abs 0.0 0.0 - 0.1 K/cumm [facility] Neutrophil pct 49.0 % [facility] Comment: Interpretive Data Percent cell count reference ranges are not reported, since discordance with absolute values may lead to misinterpretation of CBC data. Current Interpretive Data was last revised on 2017. Imm gran pct 0.4 % [facility] Comment: Interpretive Data Percent cell count reference ranges are not reported, since discordance with absolute values may lead to misinterpretation of CBC data. Current Interpretive Data was last revised on 2017. Lymphocyte pct 34.2 % [facility] Comment: Interpretive Data Percent cell count reference ranges are not reported, since discordance with absolute values may lead to misinterpretation of CBC data. Current Interpretive Data was last revised on 2017. Monocyte pct 7.9 % [facility] Comment: Interpretive Data Percent cell count reference ranges are not reported, since discordance with absolute values may lead to misinterpretation of CBC data. Current Interpretive Data was last revised on 2017. Eosinophil pct 8.0 % [facility] Comment: Interpretive Data Percent cell count reference ranges are not reported, since discordance with absolute values may lead to misinterpretation of CBC data. Current Interpretive Data was last revised on 2017. Basophil pct 0.5 % [facility] Comment: Interpretive Data Percent cell count reference ranges are not reported, since discordance with absolute values may lead to misinterpretation of CBC data. Current Interpretive Data was last revised on 2017. Blood 03/22/2023 11:0 1 PM CDT 03/23/2023 12:05 AM CDT Josephine JARAMILLO LAB BLOOD ORDERABLES Shilpi l Result [facility] Department [place] [address] * Basic metabolic panel (03/22/2023 11:01 PM CDT) Sodium 140 135 - 145 mmol/L Potassium, pl 4.0 3.3 - 4.9 mmol/L [facility] Chloride 104 97 - 110 mmol/L [facility] CO2 28 22 - 32 mmol/L [facility] Anion gap 8 2 - 15 mmol/L [facility] BUN 17 6 - 25 mg/dL [facility] Creatinine 0.83 0.80 - 1.30 mg/dL [facility] Glucose 191 70 - 199 mg/dL [facility] Comment: Interpretive Data Fasting glucose >/= 126 [...] 2022. Calcium 8.5 8.5 - 10.3 mg/dL [facility] Blood 03/22/2023 11:0 1 PM CDT 03/23/2023 12:04 AM CDT Josephine JARAMILLO LAB BLOOD ORDERABLES Shilpi dusty Result [facility] Department [place] [address] * (ABNORMAL) CBC with auto differential (03/22/2023 11:01 PM CDT) [facility] WBC 7.9 3.8 - 9.9 K/cumm Hgb 9.6(L) 13.0 - 17.5 g/dL [facility] Comment: Interpretive Data A reference range for this assay has not been established for patients with an unknown legal sex. Please refer to the laboratory test catalog for established sex-specific reference intervals. Current interpretive data was last revised on 2023. Hct 29.5(L) 38.9 - 50.3 % [facility] Comment: Interpretive Data A reference range for this assay has not been established for patients with an unknown legal sex. Please refer to the laboratory test catalog for established sex-specific reference intervals. Current interpretive data was last revised on 2023. Plt 226 150 - 400 K/cumm [facility] MPV 10.0 9.1 - 12.3 fL [facility] RBC 3.47(L) 4.30 - 5.80 M/cumm [facility] Comment: Interpretive Data A reference range for this assay has not been established for patients with an unknown legal sex. Please refer to the laboratory test catalog for established sex-specific reference intervals. Current interpretive data was last revised on 2023. MCV 85.0 81.3 - 96.4 fL [facility] MCH 27.7 27.1 - 33.3 pg [facility] MCHC 32.5 32.3 - 35.7 g/dL [facility] RDW CV 14.5 11.1 - 14.9 % [facility] RDW SD 44.3 35.7 - 48.1 fL [facility] NRBC abs 0.00 0.00 - 0.01 K/cumm [facility] Blood 03/22/2023 11:0 1 PM CDT 03/23/2023 12:05 AM CDT Josephine JARAMILLO LAB BLOOD ORDERABLES Shilpi l Result Performing Organization Address [facility]/ZIP Co de Phone Number [facility] [place] [address] * POCT glucose (03/22/2023 8:13 PM CDT) Glucose, POC 145 70 - 199 mg/dL Blood 03/22/2023 8:13 PM CDT 03/22/2023 8:13 PM CDT Evy Chong MD LAB POCT ORDERA BLES - DEVICE Final Result Performing Organization Address [facility] Co de Phone Number [facility] [place] [address] * POCT glucose (03/22/2023 5:04 PM CDT) Glucose, POC 187 70 - 199 mg/dL Blood 03/22/2023 5:04 PM CDT 03/22/2023 5:04 PM CDT Evy Chong MD LAB POCT ORDERA BLES - DEVICE Final Result Performing Organization Address [facility]/ZIP Co de Phone Number [facility] [place] [address] * POCT glucose (03/22/2023 2:09 PM CDT) Glucose, POC 180 70 - 199 mg/dL Blood 03/22/2023 2:09 PM CDT 03/22/2023 2:09 PM CDT Evy Chong MD LAB POCT ORDERA BLES - DEVICE Final Result Performing Organization Address [facility] de Phone Number NICOLASA [facility] [place] [address] * POCT glucose (03/22/2023 8:13 AM CDT) Glucose, POC 175 70 - 199 mg/dL Blood 03/22/2023 8:13 AM CDT 03/22/2023 8:13 AM CDT Evy Chong MD LAB POCT ORDERA BLES - DEVICE Final Result Performing Organization Address [facility] de Phone Number [facility] [place] [address] * eGFR (03/21/2023 10:43 PM CDT) eGFR [...] JARAMILLO LAB BLOOD ORDERABLES Shilpi montano Result [facility] Department [place] [address] * (ABNORMAL) Differential, auto (03/21/2023 10:43 PM CDT) Pathologist [facility] Neutrophil abs 4.6 1.7 - 6.5 K/cumm Imm gran abs 0.1 0.0 - 0.1 K/cumm [facility] Lymphocyte abs 2.8 0.8 - 3.3 K/cumm [facility] Monocyte abs 0.7 0.2 - 0.8 K/cumm [facility] Eosinophil abs 0.7(H) 0.0 - 0.5 K/cumm [facility] Basophil abs 0.0 0.0 - 0.1 K/cumm [facility] Neutrophil pct 51.6 % [facility] Comment: Interpretive Data Percent cell count reference ranges are not reported, since discordance with absolute values may lead to misinterpretation of CBC data. Current Interpretive Data was last revised on 2017. Imm gran pct 0.7 % [facility] Comment: Interpretive Data Percent cell count reference ranges are not reported, since discordance with absolute values may lead to misinterpretation of CBC data. Current Interpretive Data was last revised on 2017. Lymphocyte pct 31.7 % [facility] Comment: Interpretive Data Percent cell count reference ranges are not reported, since discordance with absolute values may lead to misinterpretation of CBC data. Current Interpretive Data was last revised on 2017. Monocyte pct 8.1 % [facility] Comment: Interpretive Data Percent cell count reference ranges are not reported, since discordance with absolute values may lead to misinterpretation of CBC data. Current Interpretive Data was last revised on 2017. Eosinophil pct 7.5 % [facility] Comment: Interpretive Data Percent cell count reference ranges are not reported, since discordance with absolute values may lead to misinterpretation of CBC data. Current Interpretive Data was last revised on 2017. Basophil pct 0.4 % [facility] Comment: Interpretive Data Percent cell count reference ranges are not reported, since discordance with absolute values may lead to misinterpretation of CBC data. Current Interpretive Data was last revised on 2017. Blood 03/21/2023 10:4 3 PM CDT 03/21/2023 11:18 PM CDT Josephine JARAMILLO LAB BLOOD ORDERABLES Shilpi montano Result [facility] Department [place] [address] * Basic metabolic panel (03/21/2023 10:43 PM CDT) Sodium 138 135 - 145 mmol/L Potassium, pl 4.1 3.3 - 4.9 mmol/L [facility] Chloride 106 97 - 110 mmol/L [facility] CO2 28 22 - 32 mmol/L [facility] Anion gap 4 2 - 15 mmol/L [facility] BUN 16 6 - 25 mg/dL [facility] Creatinine 0.81 0.80 - 1.30 mg/dL [facility] Glucose 158 70 - 199 mg/dL [facility] Comment: Interpretive Data Fasting glucose >/= 126 [...] 2022. Calcium 8.8 8.5 - 10.3 mg/dL [facility] Blood 03/21/2023 10:4 3 PM CDT 03/21/2023 11:18 PM CDT Josephine JARAMILLO LAB BLOOD ORDERABLES Shilpi montano Result [facility] Department [place] [address] * (ABNORMAL) CBC with auto differential (03/21/2023 10:43 PM CDT) [facility] WBC 9.0 3.8 - 9.9 K/cumm Hgb 10.4(L) 13.0 - 17.5 g/dL [facility] Comment: Interpretive Data A reference range for this assay has not been established for patients with an unknown legal sex. Please refer to the laboratory test catalog for established sex-specific reference intervals. Current interpretive data was last revised on 2023. Hct 31.6(L) 38.9 - 50.3 % [facility] Comment: Interpretive Data A reference range for this assay has not been established for patients with an unknown legal sex. Please refer to the laboratory test catalog for established sex-specific reference intervals. Current interpretive data was last revised on 2023. Plt 228 150 - 400 K/cumm [facility] MPV 9.6 9.1 - 12.3 fL [facility] RBC 3.72(L) 4.30 - 5.80 M/cumm [facility] Comment: Interpretive Data A reference range for this assay has not been established for patients with an unknown legal sex. Please refer to the laboratory test catalog for established sex-specific reference intervals. Current interpretive data was last revised on 2023. MCV 84.9 81.3 - 96.4 fL [facility] MCH 28.0 27.1 - 33.3 pg [facility] MCHC 32.9 32.3 - 35.7 g/dL [facility] RDW CV 14.5 11.1 - 14.9 % [facility] RDW SD 43.2 35.7 - 48.1 fL [facility] NRBC abs 0.00 0.00 - 0.01 K/cumm [facility] Blood 03/21/2023 10:4 3 PM CDT 03/21/2023 11:18 PM CDT Josephine JARAMILLO LAB BLOOD ORDERABLES Shilpi l Result Performing Organization Address [facility] Co de Phone Number [facility] Department [place] [employer] [place] [address] * Type and screen (03/21/2023 10:43 PM CDT) ABO Rh B Negative Keenan, indirect Negative [facility] Blood 03/21/2023 10:4 3 PM CDT 03/21/2023 11:13 PM CDT Narrative [facility] - 03/22/2023 12:13 AM CDT Has the patient had Daratumumab or Isatuximab in the past 6 months?->Unknown Matheus JARAMILLO LAB BLOOD BANK TEST ORDERAB LES Final Result [facility] [place] [employer] [address] * POCT glucose (03/21/2023 8:50 PM CDT) Glucose, POC 166 70 - 199 mg/dL Blood 03/21/2023 8:50 PM CDT 03/21/2023 8:50 PM CDT Evy Chong MD LAB POCT ORDERA BLES - DEVICE Final Result Performing Organization Address [facility] de Phone Number [facility] [place] [address] * POCT glucose (03/21/2023 5:40 PM CDT) Glucose, POC 197 70 - 199 mg/dL Blood 03/21/2023 5:40 PM CDT 03/21/2023 5:40 PM CDT Evy Chong MD LAB POCT ORDERA BLES - DEVICE Final Result Performing Organization Address [facility] de Phone Number [facility] [place] [address] * POCT glucose (03/21/2023 12:03 PM CDT) Glucose, POC 131 70 - 199 mg/dL Glucose comment 1 Glu2: RN/ Notified [facility] Blood 03/21/2023 12:0 3 PM CDT 03/21/2023 12:03 PM CDT Evy Chong MD LAB POCT ORDERA BLES - DEVICE Final Result Performing Organization Address [facility] de Phone Number [facility] [place] [employer] [place] [address] * POCT glucose (03/21/2023 8:33 AM CDT) Glucose, POC 169 70 - 199 mg/dL Glucose comment 1 Glu2: RN/MD Notified [facility] Blood 03/21/2023 8:33 AM CDT 03/21/2023 8:33 AM CDT us Evy Chong MD LAB POCT ORDERA BLES - DEVICE Final Result Performing Organization Address [facility] Co de Phone Number [facility] [place] [employer] [place] [address] * eGFR (03/20/2023 10:55 PM CDT) eGFR [...] ORDERABLES Shilpi l Result Performing Organization Address [facility] Co de Phone Number [facility] VAL[facility] Department of [employer] [place], [place] [id number] * (ABNORMAL) Differential, auto (03/20/2023 10:55 PM CDT) Neutrophil abs 5.3 1.7 - 6.5 K/cumm Imm gran abs 0.1 0.0 - 0.1 K/cumm [facility] Lymphocyte abs 2.9 0.8 - 3.3 K/cumm [facility] Monocyte abs 0.7 0.2 - 0.8 K/cumm [facility] Eosinophil abs 0.6(H) 0.0 - 0.5 K/cumm [facility] Basophil abs 0.0 0.0 - 0.1 K/cumm [facility] Neutrophil pct 55.3 % [facility] Comment: Interpretive Data Percent cell count reference ranges are not reported, since discordance with absolute values may lead to misinterpretation of CBC data. Current Interpretive Data was last revised on 2017. Imm gran pct 0.5 % [facility] Comment: Interpretive Data Percent cell count reference ranges are not reported, since discordance with absolute values may lead to misinterpretation of CBC data. Current Interpretive Data was last revised on 2017. Lymphocyte pct 30.5 % [facility] Comment: Interpretive Data Percent cell count reference ranges are not reported, since discordance with absolute values may lead to misinterpretation of CBC data. Current Interpretive Data was last revised on 2017. Monocyte pct 7.3 % [facility] Comment: Interpretive Data Percent cell count reference ranges are not reported, since discordance with absolute values may lead to misinterpretation of CBC data. Current Interpretive Data was last revised on 2017. Eosinophil pct 6.1 % [facility] Comment: Interpretive Data Percent cell count reference ranges are not reported, since discordance with absolute values may lead to misinterpretation of CBC data. Current Interpretive Data was last revised on 2017. Basophil pct 0.3 % [facility] Comment: Interpretive Data Percent cell count reference ranges are not reported, since discordance with absolute values may lead to misinterpretation of CBC data. Current Interpretive Data was last revised on 2017. Blood 03/20/2023 10:5 5 PM CDT 03/21/2023 12:06 AM CDT Josephine JARAIMLLO LAB BLOOD ORDERABLES Shilpi l Result [facility] Department [place] [address] * (ABNORMAL) Basic metabolic panel (03/20/2023 10:55 PM CDT) [facility] Sodium 136 135 - 145 mmol/L Potassium, pl 3.8 3.3 - 4.9 mmol/L [facility] Chloride 102 97 - 110 mmol/L [facility] CO2 27 22 - 32 mmol/L [facility] Anion gap 7 2 - 15 mmol/L [facility] BUN 17 6 - 25 mg/dL [facility] Creatinine 0.77(L) 0.80 - 1.30 mg/dL [facility] Glucose 157 70 - 199 mg/dL [facility] Comment: Interpretive Data Fasting glucose >/= 126 [...] 2022. Calcium 8.8 8.5 - 10.3 mg/dL [facility] Blood 03/20/2023 10:5 5 PM CDT 03/21/2023 12:06 AM CDT Josephine JARAMILLO LAB BLOOD ORDERABLES Shilpi l Result Performing Organization Address [facility]/ZIP Co de Phone Number [facility] Department [place] [address] * (ABNORMAL) CBC with auto differential (03/20/2023 10:55 PM CDT) WBC 9.6 3.8 - 9.9 K/cumm Hgb 11.1(L) 13.0 - 17.5 g/dL [facility] Comment: Interpretive Data A reference range for this assay has not been established for patients with an unknown legal sex. Please refer to the laboratory test catalog for established sex-specific reference intervals. Current interpretive data was last revised on 2023. Hct 34.6(L) 38.9 - 50.3 % [facility] Plt 239 150 - 400 K/cumm [facility] MPV 9.6 9.1 - 12.3 fL [facility] RBC 4.05(L) 4.30 - 5.80 M/cumm [facility] Comment: Interpretive Data A reference range for this assay has not been established for patients with an unknown legal sex. Please refer to the laboratory test catalog for established sex-specific reference intervals. Current interpretive data was last revised on 2023. MCV 85.4 81.3 - 96.4 fL [facility] MCH 27.4 27.1 - 33.3 pg [facility] MCHC 32.1(L) 32.3 - 35.7 g/dL [facility] RDW CV 14.3 11.1 - 14.9 % [facility] RDW SD 42.3 35.7 - 48.1 fL [facility] NRBC abs 0.00 0.00 - 0.01 K/cumm [facility] Blood 03/20/2023 10:5 5 PM CDT 03/21/2023 12:06 AM CDT Josephine JARAMILLO LAB BLOOD ORDERABLES Shilpi l Result [facility] [place] [address] * POCT glucose (03/20/2023 9:00 PM CDT) Glucose, POC 152 70 - 199 mg/dL Blood 03/20/2023 9:00 PM CDT 03/20/2023 9:00 PM CDT us Evy Chong MD LAB POCT ORDERA BLES - DEVICE Final Result Performing Organization Address [facility] Co de Phone Number [facility] [place] [address] * POCT glucose (03/20/2023 5:37 PM CDT) Glucose, POC 158 70 - 199 mg/dL Blood 03/20/2023 5:37 PM CDT 03/20/2023 5:37 PM CDT Result [facility] Evy Chong MD LAB POCT ORDERA BLES - DEVICE Final Result Performing Organization Address [facility] de Phone Number [facility] [place] [address] * (ABNORMAL) POCT glucose (03/20/2023 12:24 PM CDT) Glucose, POC 257(H) 70 - 199 mg/dL Blood 03/20/2023 12:2 4 PM CDT 03/20/2023 12:24 PM CDT Result [facility] Evy Chong MD LAB POCT ORDERA BLES - DEVICE Final Result Performing Organization Address [facility] Co de Phone Number [facility] [place] [employer] [place] [address] * POCT glucose (03/20/2023 8:23 AM CDT) Glucose, POC 176 70 - 199 mg/dL Blood 03/20/2023 8:23 AM CDT 03/20/2023 8:23 AM CDT Evy Chong MD LAB POCT ORDERA BLES - DEVICE Final Result Performing Organization Address [facility] Co de Phone Number [facility] [place] [address] * POCT glucose (03/19/2023 9:14 PM CDT) Glucose, POC 149 70 - 199 mg/dL Blood 03/19/2023 9:14 PM CDT 03/19/2023 9:14 PM CDT Evy Chong MD LAB POCT ORDERA BLES - DEVICE Final Result Performing Organization Address [facility] de Phone Number [facility] [place] [address] * POCT glucose (03/19/2023 6:00 PM CDT) Glucose, POC 159 70 - 199 mg/dL Blood 03/19/2023 6:00 PM CDT 03/19/2023 6:00 PM CDT Evy Chong MD LAB POCT ORDERA BLES - DEVICE Final Result Performing Organization Address [facility] de Phone Number [facility] [place] [address] * POCT glucose (03/19/2023 2:06 PM CDT) Glucose, POC 148 70 - 199 mg/dL Blood 03/19/2023 2:06 PM CDT 03/19/2023 2:06 PM CDT Evy Chong MD LAB POCT ORDERA BLES - DEVICE Final Result Performing Organization Address [facility] Co de Phone Number [facility] Department [place] [address] * POCT glucose (03/19/2023 8:29 AM CDT) Pathologist [facility] Glucose, POC 168 70 - 199 mg/dL Blood 03/19/2023 8:29 AM CDT 03/19/2023 8:29 AM CDT Evy Chong MD LAB POCT ORDERA BLES - DEVICE Final Result [facility] VALENTIN [facility] Department [place] [address] * eGFR (03/18/2023 10:07 PM CDT) [facility] eGFR >90 90 - 130 mL/min/1. 73 [...] PM CDT 03/18/2023 11:24 PM CDT Josephine Joe JARAMILLO LAB BLOOD ORDERABLES Shilpi dusty Result [facility] Department [place] [address] * Differential, auto (03/18/2023 10:07 PM CDT) Neutrophil abs 5.8 1.7 - 6.5 K/cumm Imm gran abs 0.1 0.0 - 0.1 K/cumm [facility] Lymphocyte abs 3.0 0.8 - 3.3 K/cumm [facility] Monocyte abs 0.7 0.2 - 0.8 K/cumm [facility] Eosinophil abs 0.5 0.0 - 0.5 [facility] Basophil abs 0.0 0.0 - 0.1 K/cumm [facility] Neutrophil pct 57.8 % [facility] Comment: Interpretive Data Percent cell count reference ranges are not reported, since discordance with absolute values may lead to misinterpretation of CBC data. Current Interpretive Data was last revised on 2017. Imm gran pct 0.5 % [facility] Comment: Interpretive Data Percent cell count reference ranges are not reported, since discordance with absolute values may lead to misinterpretation of CBC data. Current Interpretive Data was last revised on 2017. Lymphocyte pct 29.8 % [facility] Comment: Interpretive Data Percent cell count reference ranges are not reported, since discordance with absolute values may lead to misinterpretation of CBC data. Current Interpretive Data was last revised on 2017. Monocyte pct 6.8 % [facility] Comment: Interpretive Data Percent cell count reference ranges are not reported, since discordance with absolute values may lead to misinterpretation of CBC data. Current Interpretive Data was last revised on 2017. Eosinophil pct 4.8 % [facility] Comment: Interpretive Data Percent cell count reference ranges are not reported, since discordance with absolute values may lead to misinterpretation of CBC data. Current Interpretive Data was last revised on 2017. Basophil pct 0.3 % [facility] Comment: Interpretive Data Percent cell count reference ranges are not reported, since discordance with absolute values may lead to misinterpretation of CBC data. Current Interpretive Data was last revised on 2017. Blood 03/18/2023 10:0 7 PM CDT 03/18/2023 11:24 PM CDT Josephine JARAMILLO LAB BLOOD ORDERABLES Shilpi l Result [facility] Department [place] [address] * Basic metabolic panel (03/18/2023 10:07 PM CDT) Sodium 140 135 - 145 mmol/L Potassium, pl 3.9 3.3 - 4.9 mmol/L [facility] Chloride 103 97 - 110 mmol/L [facility] CO2 28 22 - 32 mmol/L [facility] Anion gap 9 2 - 15 mmol/L [facility] BUN 11 6 - 25 mg/dL [facility] Creatinine 0.83 0.80 - 1.30 mg/dL [facility] Glucose 138 70 - 199 mg/dL [facility] Comment: Interpretive Data Fasting glucose >/= 126 [...] 2022. Calcium 8.7 8.5 - 10.3 mg/dL [facility] Blood 03/18/2023 10:0 7 PM CDT 03/18/2023 11:24 PM CDT Josephine JARAMILLO LAB BLOOD ORDERABLES Shilpi l Result [facility] Department [place] [address] * (ABNORMAL) CBC with auto differential (03/18/2023 10:07 PM CDT) [facility] WBC 10.0(H) 3.8 - 9.9 K/cumm Hgb 10.3(L) 13.0 - 17.5 g/dL [facility] Hct 31.9(L) 38.9 - 50.3 % [facility] Plt 273 150 - 400 K/cumm [facility] MPV 9.6 9.1 - 12.3 fL [facility] RBC 3.78(L) 4.30 - 5.80 M/cumm [facility] Comment: Interpretive Data A reference range for this assay has not been established for patients with an unknown legal sex. Please refer to the laboratory test catalog for established sex-specific reference intervals. Current interpretive data was last revised on 2023. MCV 84.4 81.3 - 96.4 fL [facility] MCH 27.2 27.1 - 33.3 pg [facility] MCHC 32.3 32.3 - 35.7 g/dL [facility] RDW CV 13.5 11.1 - 14.9 % [facility] RDW SD 39.8 35.7 - 48.1 fL [facility] NRBC abs 0.00 0.00 - 0.01 K/cumm [facility] Blood 03/18/2023 10:0 7 PM CDT 03/18/2023 11:24 PM CDT Josephine JARAMILLO LAB BLOOD ORDERABLES Shilpi l Result [facility] Department [place] [address] * Type and screen (03/18/2023 10:07 PM CDT) ABO Rh B Negative Keenan, indirect Negative [facility] Blood 03/18/2023 10:0 7 PM CDT 03/18/2023 11:24 PM CDT Narrative [facility] - 03/19/2023 12:13 AM CDT Has the patient had Daratumumab or Isatuximab in the past 6 months?->Unknown Matheus JARAMILLO LAB BLOOD BANK TEST ORDERAB LES Final Result Performing Organization Address [facility]/ZIP Co de Phone Number [facility] [place] [employer] [place] [address] * POCT glucose (03/18/2023 9:59 PM CDT) Glucose, POC 131 70 - 199 mg/dL Blood 03/18/2023 9:59 PM CDT 03/18/2023 9:59 PM CDT Evy Chong MD LAB POCT ORDERA BLES - DEVICE Final Result Performing Organization Address [facility] Co de Phone Number [facility] Department [place] [address] * POCT glucose (03/18/2023 6:11 PM CDT) Glucose, POC 142 70 - 199 mg/dL Blood 03/18/2023 6:11 PM CDT 03/18/2023 6:11 PM CDT Evy Chong MD LAB POCT ORDERA BLES - DEVICE Final Result Performing Organization Address [facility]/ZIP Co de Phone Number [facility] [place] [address] * POCT glucose (03/18/2023 1:17 PM CDT) Glucose, POC 191 70 - 199 mg/dL Blood 03/18/2023 1:17 PM CDT 03/18/2023 1:17 PM CDT Evy Chong MD LAB POCT ORDERA BLES - DEVICE Final Result Performing Organization Address [facility] Co de Phone Number [facility] Department [place] [address] * POCT glucose (03/18/2023 8:32 AM CDT) Glucose, POC 156 70 - 199 mg/dL Blood 03/18/2023 8:32 AM CDT 03/18/2023 8:32 AM CDT Evy Chong MD LAB POCT ORDERA BLES - DEVICE Final Result Performing Organization Address [facility] de Phone Number [facility] [place] [address] * (ABNORMAL) Hepatic function panel (03/17/2023 10:10 PM CDT) Pathologist [facility] Bilirubin, total 0.2 0.1 - 1.2 mg/dL Bilirubin, direct <0.2 0.1 - 0.3 mg/dL [facility] Protein, pl 6.0(L) 6.5 - 8.5 g/dL [facility] Albumin 3.0(L) 3.5 - 5.0 g/dL [facility] Alk phos 68 40 - 130 Units/L [facility] ALT 11 7 - 55 Units/L [facility] AST 23 10 - 50 Units/L [facility] Blood 03/17/2023 10:1 0 PM CDT 03/17/2023 10:52 PM CDT Result [facility] Evy Chong MD LAB BLOOD ORDER MARA Final Result Performing Organization Address [facility] Co de Phone Number [facility] VAL[facility] Department [place] [address] * eGFR (03/17/2023 10:10 PM CDT) eGFR >90 90 - 130 [...] ORDERABLES Shilpi l Result Performing Organization Address [facility]/ZIP Co de Phone Number [facility]OLAS[facility] VALENTIN [facility] Department [place] [address] * Differential, auto (03/17/2023 10:10 PM CDT) Neutrophil abs 5.2 1.7 - 6.5 K/cumm Imm gran abs 0.1 0.0 - 0.1 K/cumm [facility] Lymphocyte abs 2.7 0.8 - 3.3 K/cumm [facility] Monocyte abs 0.7 0.2 - 0.8 K/cumm [facility] Eosinophil abs 0.4 0.0 - 0.5 K/cumm [facility] Basophil abs 0.0 0.0 - 0.1 K[facility]cumm [facility] Neutrophil pct 57.3 % [facility] Comment: Interpretive Data Percent cell count reference ranges are not reported, since discordance with absolute values may lead to misinterpretation of CBC data. Current Interpretive Data was last revised on 2017. Imm gran pct 0.6 % [facility] Comment: Interpretive Data Percent cell count reference ranges are not reported, since discordance with absolute values may lead to misinterpretation of CBC data. Current Interpretive Data was last revised on 2017. Lymphocyte pct 29.9 % [facility] Comment: Interpretive Data Percent cell count reference ranges are not reported, since discordance with absolute values may lead to misinterpretation of CBC data. Current Interpretive Data was last revised on 2017. Monocyte pct 7.7 % [facility] Comment: Interpretive Data Percent cell count reference ranges are not reported, since discordance with absolute values may lead to misinterpretation of CBC data. Current Interpretive Data was last revised on 2017. Eosinophil pct 4.3 % [facility] Comment: Interpretive Data Percent cell count reference ranges are not reported, since discordance with absolute values may lead to misinterpretation of CBC data. Current Interpretive Data was last revised on 2017. Basophil pct 0.2 % [facility] Comment: Interpretive Data Percent cell count reference ranges are not reported, since discordance with absolute values may lead to misinterpretation of CBC data. Current Interpretive Data was last revised on 2017. Blood 03/17/2023 10:1 0 PM CDT 03/17/2023 11:01 PM CDT Josephine Joe JARAMILLO LAB BLOOD ORDERABLES Shilpi l Result [facility] Department [place] [address] * Basic metabolic panel (03/17/2023 10:10 PM CDT) Pathologist [facility] Sodium 139 135 - 145 mmol/L Potassium, pl 3.9 3.3 - 4.9 mmol/L [facility] Chloride 101 97 - 110 mmol/L [facility] CO2 29 22 - 32 mmol/L [facility] Anion gap 9 2 - 15 mmol/L [facility] BUN 13 6 - 25 mg/dL [facility] Creatinine 0.82 0.80 - 1.30 mg/dL [facility] Glucose 163 70 - 199 mg/dL [facility] Comment: Interpretive Data Fasting glucose >/= 126 [...] 2022. Calcium 8.7 8.5 - 10.3 mg/dL [facility] Blood 03/17/2023 10:1 0 PM CDT 03/17/2023 10:52 PM CDT Josephine Joe JARAMILLO LAB BLOOD ORDERABLES Shilpi l Result Performing Organization Address [facility]/ZIP Co de Phone Number [facility] Department [place] [address] * (ABNORMAL) CBC with auto differential (03/17/2023 10:10 PM CDT) Pathologist [place] Emergency Department WBC 9.1 3.8 - 9.9 K/cumm Hgb 10.0(L) 13.0 - 17.5 g/dL [facility] Hct 31.2(L) 38.9 - 50.3 % [facility] Plt 235 150 - 400 K/cumm [facility] MPV 9.4 9.1 - 12.3 fL [facility] RBC 3.70(L) 4.30 - 5.80 M/cumm [facility] Comment: Interpretive Data A reference range for this assay has not been established for patients with an unknown legal sex. Please refer to the laboratory test catalog for established sex-specific reference intervals. Current interpretive data was last revised on 2023. MCV 84.3 81.3 - 96.4 fL [facility] MCH 27.0(L) 27.1 - 33.3 pg [facility] MCHC 32.1(L) 32.3 - 35.7 g/dL [facility] RDW CV 13.2 11.1 - 14.9 % [facility] RDW SD 39.0 35.7 - 48.1 fL [facility] NRBC abs 0.00 0.00 - 0.01 K/cumm [facility] Blood 03/17/2023 10:1 0 PM CDT 03/17/2023 11:01 PM CDT us Josephine JARAMILLO LAB BLOOD ORDERABLES Shilpi l Result [facility] Department [place] [address] * (ABNORMAL) POCT glucose (03/17/2023 9:22 PM CDT) [facility] Glucose, POC 205(H) 70 - 199 mg/dL Blood 03/17/2023 9:22 PM CDT 03/17/2023 9:22 PM CDT Evy Chong MD LAB POCT ORDERA BLES - DEVICE Final Result [facility] [place] [address] * POCT glucose (03/17/2023 6:24 PM CDT) Glucose, POC 166 70 - 199 mg/dL Blood 03/17/2023 6:24 PM CDT 03/17/2023 6:24 PM CDT Evy Chong MD LAB POCT ORDERA BLES - DEVICE Final Result Performing Organization Address City/[facility]/[place] [address] * POCT glucose (03/17/2023 12:47 PM CDT) Glucose, POC 142 70 - 199 mg/dL Blood 03/17/2023 12:4 7 PM CDT 03/17/2023 12:47 PM CDT Evy Chong MD LAB POCT ORDERA BLES - DEVICE Final Result Performing Organization Address City/[facility]/[place] [address] * POCT glucose (03/17/2023 9:09 AM CDT) Glucose, POC 175 70 - 199 mg/dL [facility] Blood 03/17/2023 9:09 AM CDT 03/17/2023 9:09 AM CDT Evy Chong MD LAB POCT ORDERA BLES - DEVICE Final Result Performing Organization Address [facility]/ZIP Co de Phone Number [facility] Department [place] [address] * eGFR (03/16/2023 8:56 PM CDT) eGFR [...] JARAMILLO LAB BLOOD ORDERABLES Shilpi l Result [facility] Department [place] [address] * Differential, auto (03/16/2023 8:56 PM CDT) Neutrophil abs 6.3 1.7 - 6.5 K/cumm [facility] Imm gran abs 0.1 0.0 - 0.1 K/cumm [facility] Lymphocyte abs 2.7 0.8 - 3.3 K/cumm [facility] Monocyte abs 0.7 0.2 - 0.8 K/cumm [facility] Eosinophil abs 0.3 0.0 - 0.5 K/cumm [facility] Basophil abs 0.0 0.0 - 0.1 K/cumm [facility] Neutrophil pct 62.4 % [facility] Comment: Interpretive Data Percent cell count reference ranges are not reported, since discordance with absolute values may lead to misinterpretation of CBC data. Current Interpretive Data was last revised on 2017. Imm gran pct 0.6 % [facility] Comment: Interpretive Data Percent cell count reference ranges are not reported, since discordance with absolute values may lead to misinterpretation of CBC data. Current Interpretive Data was last revised on 2017. Lymphocyte pct 26.9 % [facility] Comment: Interpretive Data Percent cell count reference ranges are not reported, since discordance with absolute values may lead to misinterpretation of CBC data. Current Interpretive Data was last revised on 2017. Monocyte pct 7.2 % [facility] Comment: Interpretive Data Percent cell count reference ranges are not reported, since discordance with absolute values may lead to misinterpretation of CBC data. Current Interpretive Data was last revised on 2017. Eosinophil pct 2.6 % [facility] Comment: Interpretive Data Percent cell count reference ranges are not reported, since discordance with absolute values may lead to misinterpretation of CBC data. Current Interpretive Data was last revised on 2017. Basophil pct 0.3 % [facility] Comment: Interpretive Data Percent cell count reference ranges are not reported, since discordance with absolute values may lead to misinterpretation of CBC data. Current Interpretive Data was last revised on 2017. Blood 03/16/2023 8:56 PM CDT 03/16/2023 9:54 PM CDT us Josephine JARAMILLO LAB BLOOD ORDERABLES Shilpi montano Result [facility] Department [place] [address] * Basic metabolic panel (03/16/2023 8:56 PM CDT) [facility] Sodium 139 135 - 145 mmol/L [facility] Potassium, pl 4.2 3.3 - 4.9 mmol/L [facility] Chloride 101 97 - 110 mmol/L [facility] CO2 29 22 - 32 mmol/L [facility] Anion gap 9 2 - 15 mmol/L [facility] BUN 8 6 - 25 mg/dL [facility] Creatinine 0.92 0.80 - 1.30 mg/dL [facility] Glucose 158 70 - 199 mg/dL [facility] Comment: Interpretive Data Fasting glucose >/= 126 [...] 2022. Calcium 8.6 8.5 - 10.3 mg/dL [facility] Blood 03/16/2023 8:56 PM CDT 03/16/2023 9:54 PM CDT Josephine JARAMILLO LAB BLOOD ORDERABLES Shilpi montano Result [facility] Department [place] [address] * (ABNORMAL) CBC with auto differential (03/16/2023 8:56 PM CDT) [facility] WBC 10.0(H) 3.8 - 9.9 K/cumm [facility] Hgb 10.1(L) 13.0 - 17.5 g/dL [facility] Hct 31.3(L) 38.9 - 50.3 % [facility] Plt 244 150 - 400 K/cumm [facility] MPV 9.3 9.1 - 12.3 fL [facility] RBC 3.80(L) 4.30 - 5.80 M/cumm [facility] Comment: Interpretive Data A reference range for this assay has not been established for patients with an unknown legal sex. Please refer to the laboratory test catalog for established sex-specific reference intervals. Current interpretive data was last revised on 2023. MCV 82.4 81.3 - 96.4 fL [facility] MCH 26.6(L) 27.1 - 33.3 pg [facility] MCHC 32.3 32.3 - 35.7 g/dL [facility] RDW CV 13.2 11.1 - 14.9 % [facility] RDW SD 38.9 35.7 - 48.1 fL [facility] NRBC abs 0.00 0.00 - 0.01 K/cumm [facility] Blood 03/16/2023 8:56 PM CDT 03/16/2023 9:54 PM CDT us Josephine JARAMILLO LAB BLOOD ORDERABLES Shilpi l Result [facility] Department [place] [employer] [place] [address] * POCT glucose (03/16/2023 8:47 PM CDT) [facility] Glucose, POC 167 70 - 199 mg/dL [facility] Blood 03/16/2023 8:47 PM CDT 03/16/2023 8:47 PM CDT us Neno Lei MD LAB POCT ORDERABLES - DEV ICE Final Result [facility] Department [place] [address] * POCT glucose (03/16/2023 6:21 PM CDT) Glucose, POC 166 70 - 199 mg/dL [facility] Blood 03/16/2023 6:21 PM CDT 03/16/2023 6:21 PM CDT us Neno Lei MD LAB POCT ORDERABLES - DEV ICE Final Result Performing Organization Address [facility] de Phone Number [facility] [place] [address] * (ABNORMAL) Albumin Creatinine Ratio, Urine (03/16/2023 4:21 PM CDT) [facility] Albumin Ur 39.3 mg/L [facility] Comment: Interpretive Data No reference range established. Current interpretive data was last revised 2018. Creatinine Ur 88.9 mg/dL [facility] Comment: Interpretive Data No reference range established. Current interpretive data was last revised 2018. Albumin Creatinine Ratio, Ur 44(H) 1 - 29 mg/g [facility] Urine 03/16/2023 4:21 PM CDT 03/16/2023 6:01 PM CDT us Luis Daniel Hanna NP LAB URINE ORDERABLES Fin al Result Performing Organization Address [facility] de Phone Number [facility] [place] [address] * POCT glucose (03/16/2023 2:19 PM CDT) Glucose, POC 162 70 - 199 mg/dL [facility] Blood 03/16/2023 2:19 PM CDT 03/16/2023 2:19 PM CDT us Neno Lei MD LAB POCT ORDERABLES - DEV ICE Final Result Performing Organization Address [facility] Co de Phone Number [facility] Department [place] [address] * POCT glucose (03/16/2023 9:06 AM CDT) Glucose, POC 178 70 - 199 mg/dL [facility] Blood 03/16/2023 9:06 AM CDT 03/16/2023 9:06 AM CDT Neno Lei MD LAB POCT ORDERABLES - DEV ICE Final Result Performing Organization Address [facility] [place] [address] * POCT glucose (03/15/2023 9:01 PM CDT) Glucose, POC 147 70 - 199 mg/dL [facility] Blood 03/15/2023 9:01 PM CDT 03/15/2023 9:01 PM CDT Neno Lei MD LAB POCT ORDERABLES - DEV ICE Final Result Performing Organization Address [facility] [place] [address] * eGFR (03/15/2023 7:38 PM CDT) Pathologist [facility] eGFR >90 90 - 130 mL/min/1. 73 m2 [facility] Comment: Interpretive Data Reference Interval Normal ?>/= [...] ORDERABLES Shilpi montano Result Performing Organization Address City/State/[facility] Co de Phone Number [facility] Department [place] [address] * Differential, auto (03/15/2023 7:38 PM CDT) Pathologist [facility] Neutrophil abs 5.1 1.7 - 6.5 K/cumm [facility] Imm gran abs 0.1 0.0 - 0.1 K/cumm [facility] Lymphocyte abs 2.3 0.8 - 3.3 K/cumm [facility] Monocyte abs 0.7 0.2 - 0.8 K/cumm [facility] Eosinophil abs 0.3 0.0 - 0.5 K/cumm [facility] Basophil abs 0.0 0.0 - 0.1 K/cumm [facility] Neutrophil pct 60.2 % [facility] Comment: Interpretive Data Percent cell count reference ranges are not reported, since discordance with absolute values may lead to misinterpretation of CBC data. Current Interpretive Data was last revised on 2017. Imm gran pct 0.7 % [facility] Comment: Interpretive Data Percent cell count reference ranges are not reported, since discordance with absolute values may lead to misinterpretation of CBC data. Current Interpretive Data was last revised on 2017. Lymphocyte pct 26.9 % [facility] Comment: Interpretive Data Percent cell count reference ranges are not reported, since discordance with absolute values may lead to misinterpretation of CBC data. Current Interpretive Data was last revised on 2017. Monocyte pct 8.5 % [facility] Comment: Interpretive Data Percent cell count reference ranges are not reported, since discordance with absolute values may lead to misinterpretation of CBC data. Current Interpretive Data was last revised on 2017. Eosinophil pct 3.3 % [facility] Comment: Interpretive Data Percent cell count reference ranges are not reported, since discordance with absolute values may lead to misinterpretation of CBC data. Current Interpretive Data was last revised on 2017. Basophil pct 0.4 % [facility] Comment: Interpretive Data Percent cell count reference ranges are not reported, since discordance with absolute values may lead to misinterpretation of CBC data. Current Interpretive Data was last revised on 2017. Blood 03/15/2023 7:38 PM CDT 03/15/2023 8:15 PM CDT Josephine JARAMILLO LAB BLOOD ORDERABLES Shilpi montano Result [facility] Department [place] [address] * Basic metabolic panel (03/15/2023 7:38 PM CDT) Sodium 138 135 - 145 mmol/L [facility] Potassium, pl 4.2 3.3 - 4.9 mmol/L [facility] Chloride 102 97 - 110 mmol/L [facility] CO2 28 22 - 32 mmol/L [facility] Anion gap 8 2 - 15 mmol/L [facility] BUN 9 6 - 25 mg/dL [facility] Creatinine 0.83 0.80 - 1.30 mg/dL [facility] Glucose 186 70 - 199 mg/dL [facility] Comment: Interpretive Data Fasting glucose >/= 126 [...] 2022. Calcium 8.5 8.5 - 10.3 mg/dL [facility] Blood 03/15/2023 7:38 PM CDT 03/15/2023 8:16 PM CDT Josephine JARAMILLO LAB BLOOD ORDERABLES Shilpi montano Result [facility] Department [place] [address] * (ABNORMAL) CBC with auto differential (03/15/2023 7:38 PM CDT) [facility] WBC 8.5 3.8 - 9.9 K/cumm [facility] Hgb 9.9(L) 13.0 - 17.5 g/dL [facility] Hct 30.5(L) 38.9 - 50.3 % [facility] Plt 214 150 - 400 K/cumm [facility] MPV 9.5 9.1 - 12.3 fL [facility] RBC 3.67(L) 4.30 - 5.80 M/cumm [facility] MCV 83.1 81.3 - 96.4 fL [facility] MCH 27.0(L) 27.1 - 33.3 pg [facility] MCHC 32.5 32.3 - 35.7 g/dL [facility] RDW CV 13.2 11.1 - 14.9 % [facility] RDW SD 39.6 35.7 - 48.1 fL [facility] NRBC abs 0.00 0.00 - 0.01 K/cumm [facility] Blood 03/15/2023 7:38 PM CDT 03/15/2023 8:15 PM CDT us Josephine JARAMILLO LAB BLOOD ORDERABLES Shilpi l Result Performing Organization Address [facility] Co de Phone Number [facility] [place] [address] * Type and screen (03/15/2023 7:38 PM CDT) [place]enan, indirect Negative [facility] ABO Rh B Negative [facility] Blood 03/15/2023 7:38 PM CDT 03/15/2023 8:18 PM CDT Narrative [facility] - 03/15/2023 9:10 PM CDT Has the patient had Daratumumab or Isatuximab in the past 6 months?->Unknown us Matheus JARAMILLO LAB BLOOD BANK TEST ORDERAB LES Final Result Performing Organization Address [facility] Co de Phone Number [facility] [place] [address] * (ABNORMAL) POCT glucose (03/15/2023 5:06 PM CDT) Glucose, POC 208(H) 70 - 199 mg/dL [facility] Blood 03/15/2023 5:06 PM CDT 03/15/2023 5:06 PM CDT us Neno Lei MD LAB POCT ORDERABLES - DEV ICE Final Result Performing Organization Address [facility] [place] [address] * POCT glucose (03/15/2023 12:14 PM CDT) Glucose, POC 176 70 - 199 mg/dL [facility] Blood 03/15/2023 12:1 4 PM CDT 03/15/2023 12:14 PM CDT us Neno Lei MD LAB POCT ORDERABLES - DEV ICE Final Result Performing Organization Address [facility] de Phone Number [facility] [place] [address] * POCT glucose (03/15/2023 7:35 AM CDT) Glucose, POC 194 70 - 199 mg/dL [facility] Blood 03/15/2023 7:35 AM CDT 03/15/2023 7:35 AM CDT Neno Lei MD LAB POCT ORDERABLES - DEV ICE Final Result Performing Organization Address [facility] de Phone Number [facility] [place] [address] * POCT glucose (03/14/2023 7:52 PM CDT) Glucose, POC 130 70 - 199 mg/dL [facility] Blood 03/14/2023 7:52 PM CDT 03/14/2023 7:52 PM CDT Result [facility] Neno Lei MD LAB POCT ORDERABLES - DEV ICE Final Result Performing Organization Address [facility] [place] [address] * eGFR (03/14/2023 7:41 PM CDT) eGFR >90 90 - 130 mL/min/1. 73 m2 [facility] Comment: Interpretive Data Reference Interval Normal ?>/= [...] JARAMILLO LAB BLOOD ORDERABLES Shilpi montano Result [facility] Department [place] [address] * Differential, auto (03/14/2023 7:41 PM CDT) Neutrophil abs 6.0 1.7 - 6.5 K/cumm [facility] Imm gran abs 0.1 0.0 - 0.1 K/cumm [facility] Lymphocyte abs 2.5 0.8 - 3.3 K/cumm [facility] Monocyte abs 0.8 0.2 - 0.8 K/cumm [facility] Eosinophil abs 0.3 0.0 - 0.5 K/cumm [facility] Basophil abs 0.0 0.0 - 0.1 K/cumm [facility] Neutrophil pct 61.8 % [facility] Comment: Interpretive Data Percent cell count reference ranges are not reported, since discordance with absolute values may lead to misinterpretation of CBC data. Current Interpretive Data was last revised on 2017. Imm gran pct 0.7 % [facility] Comment: Interpretive Data Percent cell count reference ranges are not reported, since discordance with absolute values may lead to misinterpretation of CBC data. Current Interpretive Data was last revised on 2017. Lymphocyte pct 26.1 % [facility] Comment: Interpretive Data Percent cell count reference ranges are not reported, since discordance with absolute values may lead to misinterpretation of CBC data. Current Interpretive Data was last revised on 2017. Monocyte pct 7.8 % [facility] Comment: Interpretive Data Percent cell count reference ranges are not reported, since discordance with absolute values may lead to misinterpretation of CBC data. Current Interpretive Data was last revised on 2017. Eosinophil pct 3.3 % [facility] Comment: Interpretive Data Percent cell count reference ranges are not reported, since discordance with absolute values may lead to misinterpretation of CBC data. Current Interpretive Data was last revised on 2017. Basophil pct 0.3 % [facility] Comment: Interpretive Data Percent cell count reference ranges are not reported, since discordance with absolute values may lead to misinterpretation of CBC data. Current Interpretive Data was last revised on 2017. Blood 03/14/2023 7:41 PM CDT 03/14/2023 8:20 PM CDT Josephine JARAMILLO LAB BLOOD ORDERABLES Shilpi l Result [facility] Department of Laboratories [place], [place] [id number] * (ABNORMAL) Basic metabolic panel (03/14/2023 7:41 PM CDT) Sodium 139 135 - 145 mmol/L [facility] Potassium, pl 4.0 3.3 - 4.9 mmol/L [facility] Chloride 100 97 - 110 mmol/L [facility] CO2 30 22 - 32 mmol/L [facility] Anion gap 9 2 - 15 mmol/L [facility] BUN 5(L) 6 - 25 mg/dL [facility] Creatinine 0.72(L) 0.80 - 1.30 mg/dL [facility] Glucose 137 70 - 199 mg/dL [facility] Comment: Interpretive Data Fasting glucose >/= 126 [...] 2022. Calcium 8.8 8.5 - 10.3 mg/dL [facility] Blood 03/14/2023 7:41 PM CDT 03/14/2023 8:20 PM CDT Josephine JARAMILLO LAB BLOOD ORDERABLES Shilpi montano Result [facility] Department [place] [address] * (ABNORMAL) CBC with auto differential (03/14/2023 7:41 PM CDT) Pathologist [facility] WBC 9.7 3.8 - 9.9 K/cumm [facility] Hgb 10.9(L) 13.0 - 17.5 g/dL [facility] Hct 33.2(L) 38.9 - 50.3 % [facility] Plt 228 150 - 400 K/cumm [facility] MPV 9.2 9.1 - 12.3 fL [facility] RBC 3.96(L) 4.30 - 5.80 M/cumm [facility] MCV 83.8 81.3 - 96.4 fL [facility] MCH 27.5 27.1 - 33.3 pg [facility] MCHC 32.8 32.3 - 35.7 g/dL [facility] RDW CV 12.9 11.1 - 14.9 % [facility] RDW SD 39.1 35.7 - 48.1 fL [facility] NRBC abs 0.00 0.00 - 0.01 K/cumm [facility] Blood 03/14/2023 7:41 PM CDT 03/14/2023 8:20 PM CDT us Josephine JARAMILLO LAB BLOOD ORDERABLES Shilpi l Result Performing Organization Address City/[facility]/ZIP Co de Phone Number [facility] [place] [employer] [address] * POCT glucose (03/14/2023 5:44 PM CDT) Glucose, POC 137 70 - 199 mg/dL [facility] Blood 03/14/2023 5:44 PM CDT 03/14/2023 5:44 PM CDT Neno Lei MD LAB POCT ORDERABLES - DEV ICE Final Result Performing Organization Address City/[facility] Co de Phone Number [facility] [place] [employer] [place] [address] * POCT glucose (03/14/2023 1:43 PM CDT) Glucose, POC 162 70 - 199 mg/dL [facility] Blood 03/14/2023 1:43 PM CDT 03/14/2023 1:43 PM CDT Neno Lei MD LAB POCT ORDERABLES - DEV ICE Final Result Performing Organization Address City/[facility] Co de Phone Number [facility] [place] [employer] [place] [address] * POCT glucose (03/14/2023 8:38 AM CDT) Glucose, POC 177 70 - 199 mg/dL [facility] Blood 03/14/2023 8:38 AM CDT 03/14/2023 8:38 AM CDT us Neno Lei MD LAB POCT ORDERABLES - DEV ICE Final Result [facility] Department [place] [address] * eGFR (03/13/2023 10:14 PM CDT) Pathologist [facility] eGFR >90 90 - 130 mL/min/1. 73 m2 [facility] Comment: Interpretive Data Reference Interval Normal ?>/= [...] PM CDT 03/13/2023 11:25 PM CDT Josephine Chavez ELLA LAB BLOOD ORDERABLES Shilpi montano Result [facility] Department [place] [address] * Differential, auto (03/13/2023 10:14 PM CDT) Neutrophil abs 4.9 1.7 - 6.5 K/cumm [facility] Imm gran abs 0.1 0.0 - 0.1 K/cumm [facility] Lymphocyte abs 2.5 0.8 - 3.3 K/cumm [facility] Monocyte abs 0.8 0.2 - 0.8 K/cumm [facility] Eosinophil abs 0.3 0.0 - 0.5 K/cumm [facility] Basophil abs 0.0 0.0 - 0.1 K/cumm [facility] Neutrophil pct 56.6 % [facility] Comment: Interpretive Data Percent cell count reference ranges are not reported, since discordance with absolute values may lead to misinterpretation of CBC data. Current Interpretive Data was last revised on 2017. Imm gran pct 1.5 % [facility] Comment: Interpretive Data Percent cell count reference ranges are not reported, since discordance with absolute values may lead to misinterpretation of CBC data. Current Interpretive Data was last revised on 2017. Lymphocyte pct 29.2 % [facility] Comment: Interpretive Data Percent cell count reference ranges are not reported, since discordance with absolute values may lead to misinterpretation of CBC data. Current Interpretive Data was last revised on 2017. Monocyte pct 8.8 % [facility] Comment: Interpretive Data Percent cell count reference ranges are not reported, since discordance with absolute values may lead to misinterpretation of CBC data. Current Interpretive Data was last revised on 2017. Eosinophil pct 3.6 % [facility] Comment: Interpretive Data Percent cell count reference ranges are not reported, since discordance with absolute values may lead to misinterpretation of CBC data. Current Interpretive Data was last revised on 2017. Basophil pct 0.3 % [facility] Comment: Interpretive Data Percent cell count reference ranges are not reported, since discordance with absolute values may lead to misinterpretation of CBC data. Current Interpretive Data was last revised on 2017. Blood 03/13/2023 10:1 4 PM CDT 03/13/2023 11:25 PM CDT Josephine JARAMILLO LAB BLOOD ORDERABLES Shilpi l Result [facility] Department [place] [address] * (ABNORMAL) Basic metabolic panel (03/13/2023 10:14 PM CDT) Pathologist [facility] Sodium 139 135 - 145 mmol/L [facility] Potassium, pl 3.8 3.3 - 4.9 mmol/L [facility] Chloride 97 97 - 110 mmol/L [facility] CO2 34(H) 22 - 32 mmol/L [facility] Anion gap 8 2 - 15 mmol/L [facility] BUN 5(L) 6 - 25 mg/dL [facility] Creatinine 0.71(L) 0.80 - 1.30 mg/dL [facility] Glucose 147 70 - 199 mg/dL [facility] Comment: Interpretive Data Fasting glucose >/= 126 [...] 2022. Calcium 8.3(L) 8.5 - 10.3 mg/dL [facility] Blood 03/13/2023 10:1 4 PM CDT 03/13/2023 11:25 PM CDT us Josephine Joe JARAMILLO LAB BLOOD ORDERABLES Shilpi l Result Performing Organization Address City/[facility]/ZIP Co de Phone Number [facility] [place] [employer] [place] [address] * (ABNORMAL) CBC with auto differential (03/13/2023 10:14 PM CDT) WBC 8.7 3.8 - 9.9 K/cumm [facility] Hgb 10.4(L) 13.0 - 17.5 g/dL [facility] Hct 32.5(L) 38.9 - 50.3 % [facility] Plt 202 150 - 400 K/cumm [facility] MPV 9.0(L) 9.1 - 12.3 fL [facility] RBC 3.81(L) 4.30 - 5.80 M/cumm [facility] MCV 85.3 81.3 - 96.4 fL [facility] MCH 27.3 27.1 - 33.3 pg [facility] MCHC 32.0(L) 32.3 - 35.7 g/dL [facility] RDW CV 13.0 11.1 - 14.9 % [facility] RDW SD 40.0 35.7 - 48.1 fL [facility] NRBC abs 0.00 0.00 - 0.01 K/cumm [facility] Blood 03/13/2023 10:1 4 PM CDT 03/13/2023 11:25 PM CDT Josephine JARAMILLO LAB BLOOD ORDERABLES Shilpi l Result [facility] Department [place] [address] * POCT glucose (03/13/2023 7:53 PM CDT) Glucose, POC 143 70 - 199 mg/dL [facility] Blood 03/13/2023 7:53 PM CDT 03/13/2023 7:53 PM CDT us Neno Lei MD LAB POCT ORDERABLES - DEV ICE Final Result [facility] Department [place] [address] * POCT glucose (03/13/2023 5:37 PM CDT) Glucose, POC 178 70 - 199 mg/dL [facility] Blood 03/13/2023 5:37 PM CDT 03/13/2023 5:37 PM CDT us Neno Lei MD LAB POCT ORDERABLES - DEV ICE Final Result Performing Organization Address [facility] de Phone Number [facility] Department [place] [address] * XR Wrist Left 3 or More [...] Glucose, POC 195 70 - 199 mg/dL [facility] Glucose comment 1 Glu2: RN/MD Notified [facility] Blood 03/13/2023 1:26 PM CDT 03/13/2023 1:26 PM CDT us Neno Lei MD LAB POCT ORDERABLES - DEV ICE Final Result [facility] [place] [address] * POCT glucose (03/13/2023 12:16 PM CDT) Glucose, POC 191 70 - 199 mg/dL [facility] Blood 03/13/2023 12:1 6 PM CDT 03/13/2023 12:16 PM CDT Neno Lei MD LAB POCT ORDERABLES - DEV ICE Final Result Performing Organization Address [facility]/ZIP Co de Phone Number [facility] [place] [address] * POCT glucose (03/13/2023 8:26 AM CDT) Glucose, POC 154 70 - 199 mg/dL [facility] Blood 03/13/2023 8:26 AM CDT 03/13/2023 8:26 AM CDT us Neno Lei MD LAB POCT ORDERABLES - DEV ICE Final Result [facility] [place] [address] * eGFR (03/12/2023 10:44 PM CDT) eGFR >90 90 - 130 [...] JARAMILLO LAB BLOOD ORDERABLES Shilpi l Result [facility] Department [place] [address] * (ABNORMAL) Differential, auto (03/12/2023 10:44 PM CDT) Neutrophil abs 6.1 1.7 - 6.5 K/cumm [facility] Imm gran abs 0.2(H) 0.0 - 0.1 K/cumm [facility] Lymphocyte abs 2.4 0.8 - 3.3 K/cumm [facility] Monocyte abs 0.7 0.2 - 0.8 K/cumm [facility] Eosinophil abs 0.3 0.0 - 0.5 K/cumm [facility] Basophil abs 0.0 0.0 - 0.1 K/cumm [facility] Neutrophil pct 63.1 % [facility] Comment: Interpretive Data Percent cell count reference ranges are not reported, since discordance with absolute values may lead to misinterpretation of CBC data. Current Interpretive Data was last revised on 2017. Imm gran pct 1.7 % [facility] Comment: Interpretive Data Percent cell count reference ranges are not reported, since discordance with absolute values may lead to misinterpretation of CBC data. Current Interpretive Data was last revised on 2017. Lymphocyte pct 24.9 % [facility] Comment: Interpretive Data Percent cell count reference ranges are not reported, since discordance with absolute values may lead to misinterpretation of CBC data. Current Interpretive Data was last revised on 2017. Monocyte pct 7.1 % [facility] Comment: Interpretive Data Percent cell count reference ranges are not reported, since discordance with absolute values may lead to misinterpretation of CBC data. Current Interpretive Data was last revised on 2017. Eosinophil pct 2.8 % [facility] Comment: Interpretive Data Percent cell count reference ranges are not reported, since discordance with absolute values may lead to misinterpretation of CBC data. Current Interpretive Data was last revised on 2017. Basophil pct 0.4 % [facility] Comment: Interpretive Data Percent cell count reference ranges are not reported, since discordance with absolute values may lead to misinterpretation of CBC data. Current Interpretive Data was last revised on 2017. Blood 03/12/2023 10:4 4 PM CDT 03/12/2023 11:23 PM CDT Josephine JARAMILLO LAB BLOOD ORDERABLES Shilpi l Result [facility] Department [place] [address] * (ABNORMAL) Basic metabolic panel (03/12/2023 10:44 PM CDT) [facility] Sodium 136 135 - 145 mmol/L [facility] Potassium, pl 3.8 3.3 - 4.9 mmol/L [facility] Chloride 98 97 - 110 mmol/L [facility] CO2 32 22 - 32 mmol/L [facility] Anion gap 6 2 - 15 mmol/L [facility] BUN 7 6 - 25 mg/dL [facility] Creatinine 0.65(L) 0.80 - 1.30 mg/dL [facility] Glucose 196 70 - 199 mg/dL [facility] Comment: Interpretive Data Fasting glucose >/= 126 [...] 2022. Calcium 8.0(L) 8.5 - 10.3 mg/dL [facility] Blood 03/12/2023 10:4 4 PM CDT 03/12/2023 11:24 PM CDT Josephine JARAMILLO LAB BLOOD ORDERABLES Shilpi l Result [facility] Department [place] [address] * (ABNORMAL) CBC with auto differential (03/12/2023 10:44 PM CDT) [facility] WBC 9.7 3.8 - 9.9 K/cumm [facility] Hgb 11.0(L) 13.0 - 17.5 g/dL [facility] Hct 33.8(L) 38.9 - 50.3 % [facility] Plt 226 150 - 400 K/cumm [facility] MPV 8.9(L) 9.1 - 12.3 fL [facility] RBC 4.02(L) 4.30 - 5.80 M/cumm [facility] MCV 84.1 81.3 - 96.4 fL [facility] MCH 27.4 27.1 - 33.3 pg [facility] MCHC 32.5 32.3 - 35.7 g/dL [facility] RDW CV 12.7 11.1 - 14.9 % [facility] RDW SD 38.6 35.7 - 48.1 fL [facility] NRBC abs 0.00 0.00 - 0.01 K/cumm [facility] Blood 03/12/2023 10:4 4 PM CDT 03/12/2023 11:23 PM CDT Josephine JARAMILLO LAB BLOOD ORDERABLES Shilpi l Result Performing Organization Address [facility]/ZIP Co de Phone Number [facility] Department [place] [address] * Type and screen (03/12/2023 10:44 PM CDT) Keenan, indirect Negative [facility] ABO Rh B Negative [facility] Blood 03/12/2023 10:4 4 PM CDT 03/12/2023 11:12 PM CDT Narrative [facility] - 03/13/2023 12:37 AM CDT Has the patient had Daratumumab or Isatuximab in the past 6 months?->Unknown Matheus JARAMILLO LAB BLOOD BANK TEST ORDERAB LES Final Result [facility] [place] [address] * POCT glucose (03/12/2023 8:38 PM CDT) Glucose, POC 180 70 - 199 mg/dL [facility] Blood 03/12/2023 8:38 PM CDT 03/12/2023 8:38 PM CDT Neno Lei MD LAB POCT ORDERABLES - DEV ICE Final Result Performing Organization Address [facility] Co de Phone Number [facility] [place] [address] * POCT glucose (03/12/2023 4:56 PM CDT) Glucose, POC 174 70 - 199 mg/dL [facility] Blood 03/12/2023 4:56 PM CDT 03/12/2023 4:56 PM CDT Neno Lei MD LAB POCT ORDERABLES - DEV ICE Final Result Performing Organization Address [facility] Co de Phone Number [facility] [place] [employer] [address] * POCT glucose (03/12/2023 3:12 PM CDT) Glucose, POC 166 70 - 199 mg/dL [facility] Blood 03/12/2023 3:12 PM CDT 03/12/2023 3:12 PM CDT Neno Lei MD LAB POCT ORDERABLES - DEV ICE Final Result Performing Organization Address [facility] Co de Phone Number [facility] [place] [employer] [address] * POCT glucose (03/12/2023 1:22 PM CDT) Glucose, POC 156 70 - 199 mg/dL [facility] Blood 03/12/2023 1:22 PM CDT 03/12/2023 1:22 PM CDT us Neno Lei MD LAB POCT ORDERABLES - DEV ICE Final Result Performing Organization Address [facility] de Phone Number [facility] [place] [employer] [address] * POCT glucose (03/12/2023 9:26 AM CDT) Glucose, POC 141 70 - 199 mg/dL [facility] Blood 03/12/2023 9:26 AM CDT 03/12/2023 9:26 AM CDT us Neno Lei MD LAB POCT ORDERABLES - DEV ICE Final Result Performing Organization Address [facility] de Phone Number [facility] [place] [address] * POCT glucose (03/12/2023 7:43 AM CDT) Glucose, POC 169 70 - 199 mg/dL [facility] Blood 03/12/2023 7:43 AM CDT 03/12/2023 7:43 AM CDT Result [facility] Neno Lei MD LAB POCT ORDERABLES - DEV ICE Final Result Performing Organization Address [facility] [place] [address] * eGFR (03/11/2023 10:31 PM CDT) eGFR >90 90 - 130 mL/min/1. 73 m2 [facility] Comment: Interpretive Data Reference Interval Normal ?>/= [...] JARAMILLO LAB BLOOD ORDERABLES Shilpi montano Result [facility] Department [place] [address] * (ABNORMAL) Differential, auto (03/11/2023 10:31 PM CDT) Neutrophil abs 4.6 1.7 - 6.5 K/cumm [facility] Imm gran abs 0.2(H) 0.0 - 0.1 K/cumm [facility] Lymphocyte abs 3.0 0.8 - 3.3 K/cumm [facility] Monocyte abs 0.7 0.2 - 0.8 K/cumm [facility] Eosinophil abs 0.3 0.0 - 0.5 K/cumm [facility] Basophil abs 0.0 0.0 - 0.1 K/cumm [facility] Neutrophil pct 52.0 % [facility] Comment: Interpretive Data Percent cell count reference ranges are not reported, since discordance with absolute values may lead to misinterpretation of CBC data. Current Interpretive Data was last revised on 2017. Imm gran pct 2.4 % [facility] Comment: Interpretive Data Percent cell count reference ranges are not reported, since discordance with absolute values may lead to misinterpretation of CBC data. Current Interpretive Data was last revised on 2017. Lymphocyte pct 33.8 % [facility] Comment: Interpretive Data Percent cell count reference ranges are not reported, since discordance with absolute values may lead to misinterpretation of CBC data. Current Interpretive Data was last revised on 2017. Monocyte pct 8.0 % [facility] Comment: Interpretive Data Percent cell count reference ranges are not reported, since discordance with absolute values may lead to misinterpretation of CBC data. Current Interpretive Data was last revised on 2017. Eosinophil pct 3.3 % [facility] Comment: Interpretive Data Percent cell count reference ranges are not reported, since discordance with absolute values may lead to misinterpretation of CBC data. Current Interpretive Data was last revised on 2017. Basophil pct 0.5 % [facility] Comment: Interpretive Data Percent cell count reference ranges are not reported, since discordance with absolute values may lead to misinterpretation of CBC data. Current Interpretive Data was last revised on 2017. Blood 03/11/2023 10:3 1 PM CDT 03/11/2023 11:57 PM CDT Josephine JARAMILLO LAB BLOOD ORDERABLES Shilpi l Result [facility] Department [place] [address] * (ABNORMAL) Basic metabolic panel (03/11/2023 10:31 PM CDT) Sodium 140 135 - 145 mmol/L [facility] Potassium, pl 3.8 3.3 - 4.9 mmol/L [facility] Chloride 101 97 - 110 mmol/L [facility] CO2 33(H) 22 - 32 mmol/L [facility] Anion gap 6 2 - 15 mmol/L [facility] BUN 8 6 - 25 mg/dL [facility] Creatinine 0.64(L) 0.80 - 1.30 mg/dL [facility] Glucose 176 70 - 199 mg/dL [facility] Comment: Interpretive Data Fasting glucose >/= 126 [...] 2022. Calcium 8.1(L) 8.5 - 10.3 mg/dL [facility] Blood 03/11/2023 10:3 1 PM CDT 03/11/2023 11:49 PM CDT Josephine JARAMILLO LAB BLOOD ORDERABLES Shilpi montano Result [facility] Department [place] [address] * (ABNORMAL) CBC with auto differential (03/11/2023 10:31 PM CDT) [facility] WBC 8.8 3.8 - 9.9 K/cumm [facility] Hgb 11.2(L) 13.0 - 17.5 g/dL [facility] Hct 34.8(L) 38.9 - 50.3 % [facility] Plt 248 150 - 400 K/cumm [facility] MPV 8.9(L) 9.1 - 12.3 fL [facility] RBC 4.07(L) 4.30 - 5.80 M/cumm [facility] MCV 85.5 81.3 - 96.4 fL [facility] MCH 27.5 27.1 - 33.3 pg [facility] MCHC 32.2(L) 32.3 - 35.7 g/dL [facility] RDW CV 12.9 11.1 - 14.9 % [facility] RDW SD 39.5 35.7 - 48.1 fL [facility] NRBC abs 0.00 0.00 - 0.01 K/cumm [facility] Blood 03/11/2023 10:3 1 PM CDT 03/11/2023 11:57 PM CDT us Josephine JARAMILLO LAB BLOOD ORDERABLES Shilpi l Result Performing Organization Address [facility] Co de Phone Number [facility] Department [place] [address] * POCT glucose (03/11/2023 8:17 PM CDT) Glucose, POC 196 70 - 199 mg/dL [facility] Blood 03/11/2023 8:17 PM CDT 03/11/2023 8:17 PM CDT Neno Lei MD LAB POCT ORDERABLES - DEV ICE Final Result Performing Organization Address [facility] Co de Phone Number [facility] Department [place] [address] * (ABNORMAL) POCT glucose (03/11/2023 5:25 PM CDT) Glucose, POC 205(H) 70 - 199 mg/dL [facility] Blood 03/11/2023 5:25 PM CDT 03/11/2023 5:25 PM CDT Neno Lei MD LAB POCT ORDERABLES - DEV ICE Final Result Performing Organization Address [facility] Co de Phone Number [facility] Department [place] [address] * (ABNORMAL) POCT glucose (03/11/2023 11:51 AM CDT) Pathologist [facility] Glucose, POC 241(H) 70 - 199 mg/dL [facility] Blood 03/11/2023 11:5 1 AM CDT 03/11/2023 11:51 AM CDT Neno Lei MD LAB POCT ORDERABLES - DEV ICE Final Result Performing Organization Address [facility] [place] [address] * POCT glucose (03/11/2023 7:38 AM CDT) [facility] Glucose, POC 194 70 - 199 mg/dL [facility] Blood 03/11/2023 7:38 AM CDT 03/11/2023 7:38 AM CDT Neno Lei MD LAB POCT ORDERABLES - DEV ICE Final Result Performing Organization Address [facility] de Phone Number [facility] [place] [address] * eGFR (03/10/2023 10:22 PM CDT) [facility] eGFR >90 90 - 130 mL/min/1. 73 m2 [facility] Comment: Interpretive Data Reference Interval Normal ?>/= [...] Browne NP LAB BLOOD ORDERABLES Final Result [facility] Department [place] [address] * (ABNORMAL) CBC without differential (03/10/2023 10:22 PM CDT) WBC 8.8 3.8 - 9.9 K/cumm [facility] Hgb 11.4(L) 13.0 - 17.5 g/dL [facility] Hct 35.0(L) 38.9 - 50.3 % [facility] Plt 270 150 - 400 K/cumm [facility] MPV 8.9(L) 9.1 - 12.3 fL [facility] RBC 4.17(L) 4.30 - 5.80 M/cumm [facility] MCV 83.9 81.3 - 96.4 fL [facility] MCH 27.3 27.1 - 33.3 pg [facility] MCHC 32.6 32.3 - 35.7 g/dL [facility] RDW CV 13.0 11.1 - 14.9 % [facility] RDW SD 39.6 35.7 - 48.1 fL [facility] NRBC abs 0.00 0.00 - 0.01 K/cumm [facility] Blood 03/10/2023 10:2 2 PM CDT 03/11/2023 12:10 AM CDT Marcos Browne NP LAB BLOOD ORDERABLES Final Result Performing Organization Address [facility] Co de Phone Number [facility] [place] [address] * Phosphorus (03/10/2023 10:22 PM CDT) [facility] Phosphorus, pl 2.9 2.3 - 4.5 mg/dL [facility] Blood 03/10/2023 10:2 2 PM CDT 03/11/2023 12:10 AM CDT Marcos Browne NP LAB BLOOD ORDERABLES Final Result Performing Organization Address [facility] Co de Phone Number [facility] [place] [address] * Magnesium (03/10/2023 10:22 PM CDT) [facility] Magnesium 2.0 1.4 - 2.5 mg/dL [facility] Blood 03/10/2023 10:2 2 PM CDT 03/11/2023 12:10 AM CDT Marcos Browne NP LAB BLOOD ORDERABLES Final Result Performing Organization Address [facility] [place] [address] * (ABNORMAL) Basic metabolic panel (03/10/2023 10:22 PM CDT) [facility] Sodium 139 135 - 145 mmol/L [facility] Potassium, pl 4.1 3.3 - 4.9 mmol/L [facility] Chloride 101 97 - 110 mmol/L [facility] CO2 31 22 - 32 mmol/L [facility] Anion gap 7 2 - 15 mmol/L [facility] BUN 12 6 - 25 mg/dL [facility] Creatinine 0.68(L) 0.80 - 1.30 mg/dL [facility] Glucose 186 70 - 199 mg/dL [facility] Comment: Interpretive Data Fasting glucose >/= 126 [...] 2022. Calcium 8.3(L) 8.5 - 10.3 mg/dL [facility] Blood 03/10/2023 10:2 2 PM CDT 03/11/2023 12:10 AM CDT us Marcos Browne NP LAB BLOOD ORDERABLES Final Result Performing Organization Address [facility]/ZIP Co de Phone Number [facility] Department [place] [address] * POCT glucose (03/10/2023 10:07 PM CDT) Glucose, POC 183 70 - 199 mg/dL [facility] Blood 03/10/2023 10:0 7 PM CDT 03/10/2023 10:07 PM CDT us Hans Negron MD LAB POCT ORDERABLES - DEVICE Final Result Performing Organization Address [facility]/ZIP Co de Phone Number [facility] Department [place] [address] * (ABNORMAL) POCT glucose (03/10/2023 5:03 PM CDT) Glucose, POC 209(H) 70 - 199 mg/dL [facility] Blood 03/10/2023 5:03 PM CDT 03/10/2023 5:03 PM CDT us Hans Negron MD LAB POCT ORDERABLES - DEVICE Final Result Performing Organization Address [facility] Co de Phone Number [facility] [place] [address] * POCT glucose (03/10/2023 11:47 AM CDT) Glucose, POC 166 70 - 199 mg/dL [facility] Glucose comment 1 Glu2: RN/MD Notified [facility] Blood 03/10/2023 11:4 7 AM CDT 03/10/2023 11:47 AM CDT us Ursula Ferro MD LAB POCT ORDERABLES - DEVICE F inal Result Performing Organization Address [facility] Co de Phone Number [facility] [place] [employer] [place] [address] * POCT glucose (03/10/2023 8:28 AM CDT) Glucose, POC 141 70 - 199 mg/dL [facility] Blood 03/10/2023 8:28 AM CDT 03/10/2023 8:28 AM CDT us Ursula Ferro MD LAB POCT ORDERABLES - DEVICE F inal Result Performing Organization Address [facility] Co de Phone Number [facility] [place] [employer] [place] [address] * (ABNORMAL) Tissue aerobic and anaerobic culture and gram stain Tissue Scrotum (03/10/2023 8:23 AM CDT) [facility] Direct Specimen Exam Stain: No polymorphonuclear leukocytes seen. Moderate Gram Positive Cocci [facility] Report Final Report: Few Mixed microorganisms. Includes the following: Rare Destiny glabrata For susceptibility results, refer to accession number [id number] on the scrotum abscess culture from 03/10/2023 (.) [facility] Organism MIXED MICROORGANISMS. [facility] Organism DESTINY GLABRATA [facility] Tissue (Scrotum) 03/10/2023 8:23 AM CDT 03/10/2023 10:51 AM CDT Narrative [facility] - 03/17/2023 7:49 AM CDT Left scrotal tissue Testing performed by [facility] ([phone]) Specimens submitted from normally sterile body sites [...] MICROBIOLOGY - GEN ERAL ORDERABLES Final Result [facility] Department [place] [address] * (ABNORMAL) Aerobic and anaerobic culture and gram stain Abscess Scrotum (03/10/2023 8:21 AM CDT) Direct Specimen Exam Stain: Abundant polymorphonuclear leukocytes seen. Abundant Gram Positive Cocci [facility] Report Final Report: Few Mixed Gram-positive microorganisms [...] are needed, please contact the laboratory at [phone]. The Clinical and Laboratory Standards Rangely M60 (2nd edition) breakpoints are used for interpretation of minimum inhibitory concentration results. The [employer] Yeast One panel is RESEARCH USE ONLY; it has not been cleared or approved by the U.S. Food and Drug Administration. These results are for informational purposes only. The performance characteristics of this yeast susceptibility method were evaluated by the [facility]. Interpretive criteria last updated Oct, 2020. * ??* ??* ??* ??* ??* ??* ??* ??* ??* ??* ??* ??* ??* ??* ??* ??* ??* ??* ??*(.) [facility] Organism MIXED GRAM POSITIVE MICROORGANISMS [facility] Organism DESTINY GLABRATA [facility] Abscess (Scrotum) 03/10/2023 8:21 AM CDT 03/10/2023 10:54 AM CDT N[facility]ative [facility] - 03/16/2023 1:06 PM CDT Left Scrotal Abscess Testing performed by [facility] ([phone]) Specimens submitted from normally sterile body sites [...] MICROBIOLOGY - GEN ERAL ORDERABLES Final Result [facility] Department [place] [address] * Critical Care (03/10/2023 7:32 AM CDT) [...] plan with the patient's team and other medical/supervisor home energy consultant staff. This time was in addition to and separate from care provided by other practitioners on this day of service. ?? us Marcos Browne NP IN CLINIC/BEDSIDE ORDERABL ES Final Result * (ABNORMAL) Differential, auto (03/10/2023 12:14 AM CDT) Neutrophil abs 6.9(H) 1.7 - 6.5 K/cumm [facility] Imm gran abs 0.4(H) 0.0 - 0.1 K/cumm [facility] Lymphocyte abs 2.4 0.8 - 3.3 K/cumm [facility] Monocyte abs 0.8 0.2 - 0.8 K/cumm [facility] Eosinophil abs 0.2 0.0 - 0.5 K/cumm [facility] Basophil abs 0.1 0.0 - 0.1 K/cumm [facility] Neutrophil pct 63.8 % [facility] Comment: Interpretive Data Percent cell count reference ranges are not reported, since discordance with absolute values may lead to misinterpretation of CBC data. Current Interpretive Data was last revised on 2017. Imm gran pct 3.4 % [facility] Comment: Interpretive Data Percent cell count reference ranges are not reported, since discordance with absolute values may lead to misinterpretation of CBC data. Current Interpretive Data was last revised on 2017. Lymphocyte pct 22.3 % [facility] Comment: Interpretive Data Percent cell count reference ranges are not reported, since discordance with absolute values may lead to misinterpretation of CBC data. Current Interpretive Data was last revised on 2017. Monocyte pct 7.8 % [facility] Comment: Interpretive Data Percent cell count reference ranges are not reported, since discordance with absolute values may lead to misinterpretation of CBC data. Current Interpretive Data was last revised on 2017. Eosinophil pct 2.1 % [facility] Comment: Interpretive Data Percent cell count reference ranges are not reported, since discordance with absolute values may lead to misinterpretation of CBC data. Current Interpretive Data was last revised on 2017. Basophil pct 0.6 % [facility] Comment: Interpretive Data Percent cell count reference ranges are not reported, since discordance with absolute values may lead to misinterpretation of CBC data. Current Interpretive Data was last revised on 2017. Blood 03/10/2023 12:1 4 AM CDT 03/10/2023 12:24 AM CDT us Matheus JARAMILLO LAB BLOOD ORDERABLES Final Result [facility] Department [place] [address] * (ABNORMAL) CBC with auto differential (03/10/2023 12:14 AM CDT) WBC 10.8(H) 3.8 - 9.9 K/cumm [facility] Hgb 11.2(L) 13.0 - 17.5 g/dL [facility] Hct 33.8(L) 38.9 - 50.3 % [facility] Plt 328 150 - 400 K/cumm [facility] MPV 9.1 9.1 - 12.3 fL [facility] RBC 4.05(L) 4.30 - 5.80 M/cumm [facility] HEALTH MCV 83.5 81.3 - 96.4 fL [facility] MCH 27.7 27.1 - 33.3 pg [facility] MCHC 33.1 32.3 - 35.7 g/dL [facility] RDW CV 12.9 11.1 - 14.9 % [facility] RDW SD 39.2 35.7 - 48.1 fL [facility] NRBC abs 0.00 0.00 - 0.01 K/cumm [facility] Blood 03/10/2023 12:1 4 AM CDT 03/10/2023 12:24 AM CDT us Matheus JARAMILLO LAB BLOOD ORDERABLES Final Result [facility] Department [place] [address] * eGFR (03/09/2023 9:42 PM CDT) eGFR >90 90 - 130 mL/min/1. 73 m2 [facility] Comment: Interpretive Data Reference Interval Normal ?>/= [...] Matheus JARAMILLO LAB BLOOD ORDERABLES Final Result [facility] [place] [address] * (ABNORMAL) Diabetes Mellitus Type 1 Evaluation (03/09/2023 9:42 PM CDT) Insulin ab 0.00 0.00 - 0.02 nmol/L [facility] Comment: ADDITIONAL INFORMATION This test was developed and its performance characteristics determined by [facility] in a manner consistent with CLIA requirements. This test has not been cleared or approved by the U.S. Food and Drug Administration. GAD65 ab ser 0.31(H) <=0.02 nmol/L [facility] Comment: ADDITIONAL INFORMATION This test was developed and its performance characteristics determined by [facility] in a manner consistent with CLIA requirements. This test has not been cleared or approved by the U.S. Food and Drug Administration. IA-2 Ab 0.00 <=0.02 nmol/L [facility] Comment: ADDITIONAL INFORMATION This test was developed and its performance characteristics determined by [facility] in a manner consistent with CLIA requirements. [...] P, Gerry M, Luz Marina R, Andrea Babcock, Petra L, Adal J, Igor M, Varinder [...] * ZNT8 Antibodies <15.0 <15.0 units/mL [facility] Comment: ADDITIONAL INFORMATION This test has been modified from the president college or university's instructions. Its performance characteristics were determined by [facility] in a manner consistent with CLIA requirements. This test has not been cleared or approved by the U.S. Food and Drug Administration. Test Performed by: [facility] - [address] [address] [employer]: Maxx Rollins M.D. Ph.D.; CLIA# [id number] Blood 03/09/2023 9:42 PM CDT 03/10/2023 9:15 AM CDT Ursula Ferro MD LAB BLOOD ORDERABLES Final Res ult [facility] [place] [address] * (ABNORMAL) PTH (03/09/2023 9:42 PM CDT) PTH 12(L) 15 - 65 pg/mL [facility] Blood 03/09/2023 9:42 PM CDT 03/09/2023 9:54 PM CDT Matheus JARAMILLO LAB BLOOD ORDERABLES Final Result Performing Organization Address [facility] Co de Phone Number [facility] [place] [address] * Phosphorus (03/09/2023 9:42 PM CDT) Phosphorus, pl 2.8 2.3 - 4.5 mg/dL [facility] Blood 03/09/2023 9:42 PM CDT 03/09/2023 9:52 PM CDT Matheus JARAMILLO LAB BLOOD ORDERABLES Final Result Performing Organization Address [facility] Co de Phone Number [facility] Department [place] [address] * Magnesium (03/09/2023 9:42 PM CDT) Magnesium 1.7 1.4 - 2.5 mg/dL [facility] Blood 03/09/2023 9:42 PM CDT 03/09/2023 9:52 PM CDT Matheus JARAMILLO LAB BLOOD ORDERABLES Final Result [facility] Department [place] [address] * (ABNORMAL) Comprehensive metabolic panel (03/09/2023 9:42 PM CDT) Sodium 137 135 - 145 mmol/L [facility] Potassium, pl 4.2 3.3 - 4.9 mmol/L [facility] Chloride 101 97 - 110 mmol/L [facility] CO2 28 22 - 32 mmol/L [facility] Anion gap 8 2 - 15 mmol/L [facility] BUN 11 6 - 25 mg/dL [facility] Creatinine 0.56(L) 0.80 - 1.30 mg/dL [facility] Glucose 184 70 - 199 mg/dL [facility] Comment: Interpretive Data Fasting glucose >/= 126 [...] 2022. Calcium 8.5 8.5 - 10.3 mg/dL [facility] Bilirubin, total 0.2 0.1 - 1.2 mg/dL [facility] Protein, pl 5.4(L) 6.5 - 8.5 g/dL [facility] Albumin 2.2(L) 3.5 - 5.0 g/dL [facility] Alk phos 100 40 - 130 Units/L [facility] ALT 16 7 - 55 Units/L [facility] AST 25 10 - 50 Units/L [facility] Blood 03/09/2023 9:42 PM CDT 03/09/2023 9:52 PM CDT us Matheus JARAMILLO LAB BLOOD ORDERABLES Final Result [facility] Department [place] [address] * POCT glucose (03/09/2023 9:15 PM CDT) Glucose, POC 186 70 - 199 mg/dL [facility] Blood 03/09/2023 9:15 PM CDT 03/09/2023 9:15 PM CDT us Ursula Ferro MD LAB POCT ORDERABLES - DEVICE F inal Result Performing Organization Address [facility] [place] [address] * Calcium, ionized, whole blood (03/09/2023 9:07 PM CDT) Ca, ionized, bld 4.86 4.50 - 5.10 mg/dL [facility] Blood 03/09/2023 9:07 PM CDT 03/09/2023 9:43 PM CDT Matheus JARAMILLO LAB BLOOD ORDERABLES Final Result Performing Organization Address [facility] Co de Phone Number [place] [address] * Critical Care (03/09/2023 8:22 PM CDT) [...] plan with the patient's team and other medical/supervisor home energy consultant staff. This time was in addition to and separate from care provided by other practitioners on this day of service. ?? us Matheus JARAMILLO IN CLINIC/BEDSIDE ORDERABLE S Final Result * POCT glucose (03/09/2023 4:55 PM CDT) Glucose, POC 189 70 - 199 mg/dL [facility] Blood 03/09/2023 4:55 PM CDT 03/09/2023 4:55 PM CDT Ursula Ferro MD LAB POCT ORDERABLES - DEVICE F inal Result Performing Organization Address [facility] Co de Phone Number [facility] Department [place] [place] [address] * POCT glucose (03/09/2023 11:26 AM CDT) Glucose, POC 194 70 - 199 mg/dL [facility] Blood 03/09/2023 11:2 6 AM CDT 03/09/2023 11:26 AM CDT us Ursula Ferro MD LAB POCT ORDERABLES - DEVICE F inal Result Performing Organization Address [facility] Co de Phone Number [facility] Department [place] [address] * Critical Care (03/09/2023 7:52 AM CDT) [...] plan with the patient's team and other medical/supervisor home energy consultant staff. This time was in addition to and separate from care provided by other practitioners on this day of service. ?? us Marcos Browne TIN DIPPER IN CLINIC/BEDSIDE ORDERABL ES Final Result * POCT glucose (03/09/2023 7:34 AM CDT) Glucose, POC 181 70 - 199 mg/dL [facility] Blood 03/09/2023 7:34 AM CDT 03/09/2023 7:34 AM CDT Ursula Ferro MD LAB POCT ORDERABLES - DEVICE F inal Result Performing Organization Address [facility]/ZIP Co de Phone Number [facility] Department [place] [place] [address] * POCT glucose (03/09/2023 3:29 AM CDT) Glucose, POC 182 70 - 199 mg/dL [facility] Blood 03/09/2023 3:29 AM CDT 03/09/2023 3:29 AM CDT Ursula Ferro MD LAB POCT ORDERABLES - DEVICE F inal Result Performing Organization Address [facility]/ZIP Co de Phone Number [facility] Department [place] [place] [address] * POCT glucose (03/09/2023 12:06 AM CDT) Glucose, POC 187 70 - 199 mg/dL [facility] Blood 03/09/2023 12:0 6 AM CDT 03/09/2023 12:06 AM CDT us Ursula Ferro MD LAB POCT ORDERABLES - DEVICE F inal Result [facility] Department [place] [address] * Critical Care (03/08/2023 10:30 PM CDT) [...] plan with the patient's team and other medical/supervisor home energy consultant staff. This time was in addition [...] Result * eGFR (03/08/2023 8:59 PM CDT) [facility] eGFR >90 90 - 130 mL/min/1. 73 [...] ORDERABL ES Final Result Performing Organization Address [facility] Co de Phone Number [facility] Department [place] [place] [address] * (ABNORMAL) Vitamin D 25 hydroxy (03/08/2023 8:59 PM CDT) Vitamin D 25-OH <6(L) 30 - 80 ng/mL [facility] Blood 03/08/2023 8:59 PM CDT 03/08/2023 9:07 PM CDT us Ursula Ferro MD LAB BLOOD ORDERABLES Final Res ult [facility] Department [place] [place] [address] * (ABNORMAL) CBC without differential (03/08/2023 8:59 PM CDT) WBC 10.9(H) 3.8 - 9.9 K/cumm [facility] Hgb 10.5(L) 13.0 - 17.5 g/dL [facility] Hct 32.9(L) 38.9 - 50.3 % [facility] Plt 302 150 - 400 K/cumm [facility] MPV 9.0(L) 9.1 - 12.3 fL [facility] RBC 3.91(L) 4.30 - 5.80 M/cumm [facility] MCV 84.1 81.3 - 96.4 fL [facility] MCH 26.9(L) 27.1 - 33.3 pg [facility] MCHC 31.9(L) 32.3 - 35.7 g/dL [facility] RDW CV 13.3 11.1 - 14.9 % [facility] RDW SD 40.9 35.7 - 48.1 fL [facility] NRBC abs 0.00 0.00 - 0.01 K/cumm [facility] Blood 03/08/2023 8:59 PM CDT 03/08/2023 9:09 PM CDT Mckayla Iyer TIN DIPPER LAB BLOOD ORDERABL ES Final Result [facility] Department [place] [address] * (ABNORMAL) Basic metabolic panel (03/08/2023 8:59 PM CDT) Sodium 138 135 - 145 mmol/L [facility] Potassium, pl 4.0 3.3 - 4.9 mmol/L [facility] Chloride 103 97 - 110 mmol/L [facility] CO2 26 22 - 32 mmol/L [facility] Anion gap 9 2 - 15 mmol/L [facility] BUN 10 6 - 25 mg/dL [facility] Creatinine 0.60(L) 0.80 - 1.30 mg/dL [facility] Glucose 215(H) 70 - 199 mg/dL [facility] Comment: Interpretive Data Fasting glucose >/= 126 [...] 2022. Calcium 8.0(L) 8.5 - 10.3 mg/dL [facility] Blood 03/08/2023 8:59 PM CDT 03/08/2023 9:07 PM CDT Mckayla Iyer NP LAB BLOOD ORDERABL ES Final Result Performing Organization Address [facility] Co de Phone Number [facility] Department [place] [place] [address] * POCT glucose (03/08/2023 7:34 PM CDT) Glucose, POC 194 70 - 199 mg/dL [facility] Blood 03/08/2023 7:34 PM CDT 03/08/2023 7:34 PM CDT Ursula Ferro MD LAB POCT ORDERABLES - DEVICE F inal Result Performing Organization Address City/[facility]/ZIP Co de Phone Number [facility] Department [place] [place] [address] * POCT glucose (03/08/2023 4:39 PM CDT) Glucose, POC 152 70 - 199 mg/dL [facility] Blood 03/08/2023 4:39 PM CDT 03/08/2023 4:39 PM CDT Ursula Ferro MD LAB POCT ORDERABLES - DEVICE F inal Result Performing Organization Address [facility]/ZIP Co de Phone Number [facility] [place] [employer] [address] * POCT glucose (03/08/2023 12:03 PM CDT) Glucose, POC 155 70 - 199 mg/dL [facility] Blood 03/08/2023 12:0 3 PM CDT 03/08/2023 12:03 PM CDT us Ursula Ferro MD LAB POCT ORDERABLES - DEVICE F inal Result Performing Organization Address [facility] [place] [address] * POCT glucose (03/08/2023 9:58 AM CDT) Glucose, POC 147 70 - 199 mg/dL [facility] Blood 03/08/2023 9:58 AM CDT 03/08/2023 9:58 AM CDT us Ursula Ferro MD LAB POCT ORDERABLES - DEVICE F inal Result Performing Organization Address [facility] Co de Phone Number [facility] [place] [employer] [place] [address] * POCT glucose (03/08/2023 9:06 AM CDT) Glucose, POC 142 70 - 199 mg/dL [facility] Blood 03/08/2023 9:06 AM CDT 03/08/2023 9:06 AM CDT us Ursula Ferro MD LAB POCT ORDERABLES - DEVICE F inal Result Performing Organization Address [facility] Co de Phone Number [facility] [place] [employer] [address] * Critical Care (03/08/2023 8:55 AM CDT) [...] plan with the patient's team and other medical/supervisor home energy consultant staff. This time was in addition to and separate from care provided by other practitioners on this day of service. ?? us Mckayla Iyer NP IN CLINIC/BEDSIDE ORDERABLES Final Result * POCT glucose (03/08/2023 8:03 AM CDT) Glucose, POC 145 70 - 199 mg/dL [facility] Blood 03/08/2023 8:03 AM CDT 03/08/2023 8:03 AM CDT us Ursula Ferro MD LAB POCT ORDERABLES - DEVICE F inal Result [facility] Department [place] [address] * POCT glucose (03/08/2023 6:59 AM CDT) Glucose, POC 146 70 - 199 mg/dL [facility] Blood 03/08/2023 6:59 AM CDT 03/08/2023 6:59 AM CDT Ursula Ferro MD LAB POCT ORDERABLES - DEVICE F inal Result Performing Organization Address [facility] Co de Phone Number [facility] [place] [employer] [place] [address] * Vancomycin level random (03/08/2023 5:31 AM CDT) Vancomycin random 18.9 mcg/mL [facility] Comment: Interpretive Data No reference ranges have been established for random drug levels. Current Interpretive Data was last revised on 2020. Blood 03/08/2023 5:31 AM CDT 03/08/2023 6:26 AM CDT Matheus JARAMILLO LAB BLOOD ORDERABLES Final Result Performing Organization Address [facility] de Phone Number [facility] [place] [address] * (ABNORMAL) Diabetes Mellitus Type 1 Evaluation (03/08/2023 5:31 AM CDT) Insulin ab 0.00 0.00 - 0.02 nmol/L [facility] Comment: ADDITIONAL INFORMATION This test was developed and its performance characteristics determined by [facility] in a manner consistent with CLIA requirements. This test has not been cleared or approved by the U.S. Food and Drug Administration. GAD65 ab ser 0.32(H) <=0.02 nmol/L [facility] Comment: ADDITIONAL INFORMATION This test was developed and its performance characteristics determined by [facility] in a manner consistent with CLIA requirements. This test has not been cleared or approved by the U.S. Food and Drug Administration. IA-2 Ab 0.00 <=0.02 nmol/L [facility] Comment: ADDITIONAL INFORMATION This test was developed and its performance characteristics determined by [facility] in a manner consistent with CLIA requirements. [...] * ZNT8 Antibodies <15.0 <15.0 units/mL [facility] Comment: ADDITIONAL INFORMATION This test has been modified from the president college or university's instructions. Its performance characteristics were determined by [facility] in a manner consistent with CLIA requirements. This test has not been cleared or approved by the U.S. Food and Drug Administration. Test Performed by: [address] [address] [employer]: Maxx Rollins M.D. Ph.D.; CLIA# [id number] Blood 03/08/2023 5:31 AM CDT 03/08/2023 6:25 AM CDT Matheus JARAMILLO LAB BLOOD ORDERABLES Final Result Performing Organization Address City/[facility]/ZIP Co de Phone Number [facility] Department [place] [place] [address] * C-peptide (03/08/2023 5:31 AM CDT) Pathologist [facility] C-peptide 2.24 1.10 - 4.40 ng/mL [facility] Blood 03/08/2023 5:31 AM CDT 03/08/2023 6:25 AM CDT Matheus JARAMILLO LAB BLOOD ORDERABLES Final Result Performing Organization Address [facility] Co de Phone Number [facility] [place] [employer] [place] [address] * (ABNORMAL) Glutamic acid decarboxylase (03/08/2023 5:31 AM CDT) GAD65 ab ser 0.33(H) <=0.02 nmol/L [facility] Comment: The following antibody was identified: Glutamic [...] developed and its performance characteristics determined by [facility] in a manner consistent with CLIA requirements. This test has not been cleared or approved by the U.S. Food and Drug Administration. Test Performed by: [facility] - [address] [address] [employer]: Maxx Rollins M.D. Ph.D.; CLIA# [id number] Blood 03/08/2023 5:31 AM CDT 03/08/2023 6:25 AM CDT Matheus JARAMILLO LAB BLOOD ORDERABLES Final Result Performing Organization Address [facility] Co de Phone Number [facility] [place] [address] * POCT glucose (03/08/2023 5:19 AM CDT) Glucose, POC 171 70 - 199 mg/dL [facility] Blood 03/08/2023 5:19 AM CDT 03/08/2023 5:19 AM CDT Ursula Ferro MD LAB POCT ORDERABLES - DEVICE F inal Result Performing Organization Address [facility] de Phone Number [facility] Department [place] [address] * POCT glucose (03/08/2023 2:56 AM CDT) Glucose, POC 152 70 - 199 mg/dL [facility] Blood 03/08/2023 2:56 AM CDT 03/08/2023 2:56 AM CDT Ursula Ferro MD LAB POCT ORDERABLES - DEVICE F inal Result Performing Organization Address [facility]/ZIP Co de Phone Number [facility] [place] [address] * POCT glucose (03/08/2023 12:51 AM CDT) Glucose, POC 137 70 - 199 mg/dL [facility] Blood 03/08/2023 12:5 1 AM CDT 03/08/2023 12:51 AM CDT Carmen Monte MD LAB POCT ORDERABLES - DEVICE Final Result Performing Organization Address [facility] [place] [address] * POCT glucose (03/07/2023 10:43 PM CDT) Glucose, POC 125 70 - 199 mg/dL [facility] Blood 03/07/2023 10:4 3 PM CDT 03/07/2023 10:43 PM CDT Carmen Monte MD LAB POCT ORDERABLES - DEVICE Final Result [facility] [place] [address] * Critical Care (03/07/2023 9:04 PM CDT) Narrative Matheus Frias PA - 03/07/2023 9:04 PM CDT Mathesu Frias PA ? 03/08/2023 ??5:46 AM Critical [...] plan with the patient's team and other medical/supervisor home energy consultant staff. This time was in addition [...] Glucose, POC 129 70 - 199 mg/dL [facility] Blood 03/07/2023 8:29 PM CDT 03/07/2023 8:29 PM CDT Carmen Monte MD LAB POCT ORDERABLES - DEVICE Final Result Performing Organization Address City/State/[facility] Co de Phone Number [facility] Department [place] [address] * eGFR (03/07/2023 8:27 PM CDT) eGFR >90 90 - 130 mL/min/1. 73 m2 [facility] Comment: Interpretive Data Reference Interval Normal ?>/= [...] Matheus JARAMILLO LAB BLOOD ORDERABLES Final Result [facility] Department [place] [address] * (ABNORMAL) Differential, auto (03/07/2023 8:27 PM CDT) Neutrophil abs 10.1(H) 1.7 - 6.5 K/cumm [facility] Imm gran abs 0.3(H) 0.0 - 0.1 K/cumm [facility] Lymphocyte abs 2.5 0.8 - 3.3 K/cumm [facility] Monocyte abs 1.3(H) 0.2 - 0.8 K/cumm [facility] Eosinophil abs 0.2 0.0 - 0.5 K/cumm [facility] Basophil abs 0.1 0.0 - 0.1 K/cumm [facility] Neutrophil pct 69.8 % [facility] Comment: Interpretive Data Percent cell count reference ranges are not reported, since discordance with absolute values may lead to misinterpretation of CBC data. Current Interpretive Data was last revised on 2017. Imm gran pct 2.1 % [facility] Comment: Interpretive Data Percent cell count reference ranges are not reported, since discordance with absolute values may lead to misinterpretation of CBC data. Current Interpretive Data was last revised on 2017. Lymphocyte pct 17.3 % [facility] Comment: Interpretive Data Percent cell count reference ranges are not reported, since discordance with absolute values may lead to misinterpretation of CBC data. Current Interpretive Data was last revised on 2017. Monocyte pct 8.8 % [facility] Comment: Interpretive Data Percent cell count reference ranges are not reported, since discordance with absolute values may lead to misinterpretation of CBC data. Current Interpretive Data was last revised on 2017. Eosinophil pct 1.5 % [facility] Comment: Interpretive Data Percent cell count reference ranges are not reported, since discordance with absolute values may lead to misinterpretation of CBC data. Current Interpretive Data was last revised on 2017. Basophil pct 0.5 % [facility] Comment: Interpretive Data Percent cell count reference ranges are not reported, since discordance with absolute values may lead to misinterpretation of CBC data. Current Interpretive Data was last revised on 2017. Blood 03/07/2023 8:27 PM CDT 03/07/2023 8:56 PM CDT Matheus JARAMILLO LAB BLOOD ORDERABLES Final Result [facility] Department [place] [address] * (ABNORMAL) Calcium, ionized, whole blood (03/07/2023 8:27 PM CDT) Ca, ionized, bld 4.34(L) 4.50 - 5.10 mg/dL [facility] Blood 03/07/2023 8:27 PM CDT 03/07/2023 8:41 PM CDT Matheus JARAMILLO LAB BLOOD ORDERABLES Final Result [facility] Department [place] [address] * (ABNORMAL) CBC with auto differential (03/07/2023 8:27 PM CDT) WBC 14.5(H) 3.8 - 9.9 K/cumm [facility] Hgb 10.3(L) 13.0 - 17.5 g/dL [facility] Hct 32.4(L) 38.9 - 50.3 % [facility] Plt 297 150 - 400 K/cumm [facility] MPV 9.0(L) 9.1 - 12.3 fL [facility] RBC 3.80(L) 4.30 - 5.80 M/cumm [facility] MCV 85.3 81.3 - 96.4 fL [facility] MCH 27.1 27.1 - 33.3 pg [facility] MCHC 31.8(L) 32.3 - 35.7 g/dL [facility] RDW CV 13.6 11.1 - 14.9 % [facility] RDW SD 42.5 35.7 - 48.1 fL [facility] NRBC abs 0.00 0.00 - 0.01 K/cumm [facility] Blood 03/07/2023 8:27 PM CDT 03/07/2023 8:56 PM CDT Matheus JARAMILLO LAB BLOOD ORDERABLES Final Result Performing Organization Address [facility]/ZIP Co de Phone Number [facility] [place] [address] * Magnesium (03/07/2023 8:27 PM CDT) Magnesium 2.5 1.4 - 2.5 mg/dL [facility] Blood 03/07/2023 8:27 PM CDT 03/07/2023 8:56 PM CDT Matheus JARAMILLO LAB BLOOD ORDERABLES Final Result Performing Organization Address [facility]/ZIP Co de Phone Number [facility] [place] [address] * Phosphorus (03/07/2023 8:27 PM CDT) Phosphorus, pl 4.1 2.3 - 4.5 mg/dL [facility] Blood 03/07/2023 8:27 PM CDT 03/07/2023 8:56 PM CDT us Matheus JARAMILLO LAB BLOOD ORDERABLES Final Result [facility] Department [place] [address] * (ABNORMAL) Comprehensive metabolic panel (03/07/2023 8:27 PM CDT) Pathologist [facility] Sodium 139 135 - 145 mmol/L [facility] Potassium, pl 3.6 3.3 - 4.9 mmol/L [facility] Chloride 106 97 - 110 mmol/L [facility] CO2 24 22 - 32 mmol/L [facility] Anion gap 9 2 - 15 mmol/L [facility] BUN 14 6 - 25 mg/dL [facility] Creatinine 0.73(L) 0.80 - 1.30 mg/dL [facility] Glucose 136 70 - 199 mg/dL [facility] Comment: Interpretive Data Fasting glucose >/= 126 [...] 2022. Calcium 7.8(L) 8.5 - 10.3 mg/dL [facility] Bilirubin, total 0.3 0.1 - 1.2 mg/dL [facility] Protein, pl 5.3(L) 6.5 - 8.5 g/dL [facility] Albumin 2.1(L) 3.5 - 5.0 g/dL [facility] Alk phos 118 40 - 130 Units/[facility] 17 7 - 55 Units/L [facility] AST 28 10 - 50 Units/L [facility] Blood 03/07/2023 8:27 PM CDT 03/07/2023 8:56 PM CDT Matheus Frias PA LAB BLOOD ORDERABLES Final Result Performing Organization Address [facility]/ZIP Co de Phone Number [facility] [place] [address] * POCT glucose (03/07/2023 7:08 PM CDT) Glucose, POC 129 70 - 199 mg/dL [facility] Blood 03/07/2023 7:08 PM CDT 03/07/2023 7:08 PM CDT Carmen Monte MD LAB POCT ORDERABLES - DEVICE Final Result Performing Organization Address [facility] Co de Phone Number [facility] [place] [address] * POCT glucose (03/07/2023 5:08 PM CDT) Glucose, POC 133 70 - 199 mg/dL [facility] Blood 03/07/2023 5:08 PM CDT 03/07/2023 5:08 PM CDT Carmen Monte MD LAB POCT ORDERABLES - DEVICE Final Result Performing Organization Address [facility] Co de Phone Number [facility] [place] [address] * eGFR (03/07/2023 4:49 PM CDT) eGFR See Comment 90 - 130 [facility] Comment: Unable to calculate exact result. Interpretive [...] NP LAB BLOOD ORDERABL ES Final Result [facility] [place] [address] * (ABNORMAL) Beta-hydroxybutyrate (03/07/2023 4:49 PM CDT) Beta-Hydroxybut yrate 0.9(H) 0.0 - 0.5 mmol/L [facility] Blood 03/07/2023 4:49 PM CDT 03/07/2023 4:55 PM CDT Mckayla Iyer NP LAB BLOOD ORDERABL ES Final Result Performing Organization Address [facility] de Phone Number [facility] [place] [address] * Phosphorus (03/07/2023 4:49 PM CDT) Phosphorus, pl See Comment 2.3 - 4.5 mg/dL [facility] Comment: Credited; Hemolyzed Specimen Telephone report made to: Javier TRUJILLO) on 03/07/2023 17:52:34 CDT by KG . Blood 03/07/2023 4:49 PM CDT 03/07/2023 4:55 PM CDT Mckayla Iyer NP LAB BLOOD ORDERABL ES Final Result Performing Organization Address [facility] de Phone Number [facility] [place] [address] * Magnesium (03/07/2023 4:49 PM CDT) Magnesium See Comment 1.4 - 2.5 mg/dL [facility] Comment: Credited; Hemolyzed Specimen Telephone report made to: Javier TRUJILLO) on 03/07/2023 17:52:34 CDT by KG . Blood 03/07/2023 4:49 PM CDT 03/07/2023 4:55 PM CDT Mckayla Iyer NP LAB BLOOD ORDERABL ES Final Result Performing Organization Address [facility] de Phone Number [facility] [place] [address] * Basic metabolic panel (03/07/2023 4:49 PM CDT) Sodium See Comment 135 - 145 mmol/L [facility] Comment: Credited; Hemolyzed Specimen Telephone report made to: Javier TRUJILLO) on 03/07/2023 17:52:34 CDT by KG . Potassium, pl See Comment 3.3 - 4.9 mmol/L [facility] Comment:Credited; Hemolyzed Specimen Chloride See Comment 97 - 110 mmol/L [facility] Comment:Credited; Hemolyzed Specimen CO2 See Comment 22 - 32 mmol/L [facility] Comment:Credited; Hemolyzed Specimen Anion gap See Comment 2 - 15 mmol/L [facility] Comment:Unable to calculate BUN See Comment 6 - 25 mg/dL [facility] Comment:Credited; Hemolyzed Specimen Creatinine See Comment 0.80 - 1.30 mg/dL [facility] Comment:Credited; Hemolyzed Specimen Glucose See Comment 70 - 199 mg/dL [facility] Comment: Credited; Hemolyzed Specimen Interpretive Data Fasting [...] Calcium See Comment 8.5 - 10.3 mg/dL [facility] Comment:Credited; Hemolyzed Specimen Blood 03/07/2023 4:49 PM CDT 03/07/2023 4:55 PM CDT Mckayla Iyer NP LAB BLOOD ORDERABL ES Final Result [facility] Department of [facility] [place], [place] [id number] * POCT glucose (03/07/2023 4:05 PM CDT) Glucose, POC 138 70 - 199 mg/dL [facility] Blood 03/07/2023 4:05 PM CDT 03/07/2023 4:05 PM CDT Carmen Monte MD LAB POCT ORDERABLES - DEVICE Final Result Performing Organization Address [facility] [place] [address] * POCT glucose (03/07/2023 3:00 PM CDT) Glucose, POC 138 70 - 199 mg/dL [facility] Blood 03/07/2023 3:00 PM CDT 03/07/2023 3:00 PM CDT Carmen Monte MD LAB POCT ORDERABLES - DEVICE Final Result Performing Organization Address [facility] [place] [address] * POCT glucose (03/07/2023 1:55 PM CDT) Glucose, POC 151 70 - 199 mg/dL [facility] Blood 03/07/2023 1:55 PM CDT 03/07/2023 1:55 PM CDT Carmen Monte MD LAB POCT ORDERABLES - DEVICE Final Result Performing Organization Address [facility] [place] [address] * eGFR (03/07/2023 12:20 PM CDT) eGFR >90 90 - 130 mL/min/1. 73 m2 [facility] Comment: Interpretive Data Reference Interval Normal ?>/= [...] ORDERABL ES Final Result Performing Organization Address [facility]/ZIP Co de Phone Number [facility] Department [place] [place] [address] * POCT glucose (03/07/2023 12:20 PM CDT) [facility] Signature Glucose, POC 142 70 - 199 mg/dL [facility] Blood 03/07/2023 12:2 0 PM CDT 03/07/2023 12:20 PM CDT us Carmen Monte MD LAB POCT ORDERABLES - DEVICE Final Result Performing Organization Address City/[facility] Co de Phone Number [facility] Department [place] [address] * (ABNORMAL) Phosphorus (03/07/2023 12:20 PM CDT) Pathologist [facility] Phosphorus, pl 4.8(H) 2.3 - 4.5 mg/dL [facility] Blood 03/07/2023 12:2 0 PM CDT 03/07/2023 12:35 PM CDT Mckayla Iyer TIN [employer]IPPER LAB BLOOD ORDERABL ES Final Result Performing Organization Address [facility] de Phone Number [facility] [place] [address] * Magnesium (03/07/2023 12:20 PM CDT) [facility] Magnesium 2.5 1.4 - 2.5 mg/dL [facility] Blood 03/07/2023 12:2 0 PM CDT 03/07/2023 12:35 PM CDT Mckayla Iyer TIN [employer]PER LAB BLOOD ORDERABL ES Final Result Performing Organization Address [facility] de Phone Number [facility] [place] [address] * (ABNORMAL) Basic metabolic panel (03/07/2023 12:20 PM CDT) [facility] Sodium 139 135 - 145 mmol/L [facility] Potassium, pl 3.3 3.3 - 4.9 mmol/L [facility] Chloride 104 97 - 110 mmol/L [facility] CO2 24 22 - 32 mmol/L [facility] Anion gap 11 2 - 15 mmol/L [facility] BUN 13 6 - 25 mg/dL [facility] Creatinine 0.77(L) 0.80 - 1.30 mg/dL [facility] Glucose 142 70 - 199 mg/dL [facility] Comment: Interpretive Data Fasting glucose >/= 126 [...] 2022. Calcium 8.2(L) 8.5 - 10.3 mg/dL [facility] Blood 03/07/2023 12:2 0 PM CDT 03/07/2023 12:35 PM CDT Mckayla Iyer NP LAB BLOOD ORDERABL ES Final Result Performing Organization Address [facility] Co de Phone Number [facility] Department [place] [address] * POCT glucose (03/07/2023 10:43 AM CDT) Glucose, POC 115 70 - 199 mg/dL [facility] Blood 03/07/2023 10:4 3 AM CDT 03/07/2023 10:43 AM CDT Carmen Monte MD LAB POCT ORDERABLES - DEVICE Final Result Performing Organization Address [facility] Co de Phone Number [facility] Department [place] [address] * POCT glucose (03/07/2023 9:35 AM CDT) Glucose, POC 127 70 - 199 mg/dL [facility] Blood 03/07/2023 9:35 AM CDT 03/07/2023 9:35 AM CDT Carmen Monte MD LAB POCT ORDERABLES - DEVICE Final Result Performing Organization Address [facility] Co de Phone Number [facility] Department [place] [address] * (ABNORMAL) Basic metabolic panel (03/07/2023 7:57 AM CDT) Pathologist [facility] Sodium 137 135 - 145 mmol/L [facility] Potassium, pl 3.3 3.3 - 4.9 mmol/L [facility] Chloride 100 97 - 110 mmol/L [facility] CO2 25 22 - 32 mmol/L [facility] Anion gap 12 2 - 15 mmol/L [facility] BUN 13 6 - 25 mg/dL [facility] Creatinine 0.74(L) 0.80 - 1.30 mg/dL [facility] Glucose 125 70 - 199 mg/dL [facility] Comment: Interpretive Data Fasting glucose >/= 126 [...] 2022. Calcium 8.1(L) 8.5 - 10.3 mg/dL [facility] Blood 03/07/2023 7:57 AM CDT 03/07/2023 8:11 AM CDT Carmen Monte MD LAB BLOOD ORDERABLES Final Result [facility] Department [place] [address] * eGFR (03/07/2023 7:57 AM CDT) [facility] eGFR >90 90 - 130 mL/min/1. 73 m2 [facility] Comment: Interpretive Data Reference Interval Normal ?>/= [...] BLOOD ORDERABLES Final Result Performing Organization Address [facility] Co de Phone Number [facility] [place] [place] [address] * POCT glucose (03/07/2023 7:57 AM CDT) [facility] Signature Glucose, POC 125 70 - 199 mg/dL [facility] Blood 03/07/2023 7:57 AM CDT 03/07/2023 7:57 AM CDT Carmen Monte MD LAB POCT ORDERABLES - DEVICE Final Result Performing Organization Address [facility] Co de Phone Number [facility] [place] [address] * (ABNORMAL) Beta-hydroxybutyrate (03/07/2023 7:57 AM CDT) [facility] Beta-Hydroxybut yrate 1.7(H) 0.0 - 0.5 mmol/L [facility] Blood 03/07/2023 7:57 AM CDT 03/07/2023 8:18 AM CDT Mckayla Iyer NP LAB BLOOD ORDERABL ES Final Result Performing Organization Address [facility] Co de Phone Number [facility] [place] [employer] [place] [address] * Insulin antibody (03/07/2023 7:57 AM CDT) [facility] Insulin ab 0.01 0.00 - 0.02 nmol/L [facility] Comment: ADDITIONAL INFORMATION This test was developed and its performance characteristics determined by [facility] in a manner consistent with CLIA requirements. This test has not been cleared or approved by the U.S. Food and Drug Administration. Test Performed by: [facility] [address] [address] Dredge Mate: Maxx Rollins M.D. Ph.D.; CLIA# [id number] Blood 03/07/2023 7:57 AM CDT 03/07/2023 8:45 AM CDT Mckayla Iyer NP LAB BLOOD ORDERABL ES Final Result Performing Organization Address [facility]/ZIP Co de Phone Number [facility] [place] [address] * C-peptide (03/07/2023 7:57 AM CDT) [facility] C-peptide 1.84 1.10 - 4.40 ng/mL [facility] Blood 03/07/2023 7:57 AM CDT 03/07/2023 8:11 AM CDT Mckayla Iyer NP LAB BLOOD ORDERABL ES Final Result [facility] Department [place] [address] * Critical Care (03/07/2023 7:06 AM CDT) [...] plan with the ICU team and other medical/supervisor home energy consultant staff, making frequent assessments and decisions [...] Glucose, POC 116 70 - 199 mg/dL [facility] Blood 03/07/2023 6:55 AM CDT 03/07/2023 6:55 AM CDT Carmen Monte MD LAB POCT ORDERABLES - DEVICE Final Result Performing Organization Address [facility] Co de Phone Number [facility] [place] [place] [address] * POCT glucose (03/07/2023 5:59 AM CDT) Glucose, POC 97 70 - 199 mg/dL [facility] Blood 03/07/2023 5:59 AM CDT 03/07/2023 5:59 AM CDT Carmen Monte MD LAB POCT ORDERABLES - DEVICE Final Result Performing Organization Address [facility] Co de Phone Number [facility] [place] [place] [address] * POCT glucose (03/07/2023 3:53 AM CDT) Glucose, POC 111 70 - 199 mg/dL [facility] Blood 03/07/2023 3:53 AM CDT 03/07/2023 3:53 AM CDT Carmen Monte MD LAB POCT ORDERABLES - DEVICE Final Result Performing Organization Address [facility] Co de Phone Number [facility] [place] [address] * POCT glucose (03/07/2023 1:57 AM CDT) Glucose, POC 129 70 - 199 mg/dL [facility] Blood 03/07/2023 1:57 AM CDT 03/07/2023 1:57 AM CDT Carmen Monte MD LAB POCT ORDERABLES - DEVICE Final Result Performing Organization Address [facility] Co de Phone Number [facility] [place] [address] * POCT glucose (03/07/2023 1:01 AM CDT) Glucose, POC 132 70 - 199 mg/dL [facility] Blood 03/07/2023 1:01 AM CDT 03/07/2023 1:01 AM CDT Carmen Monte MD LAB POCT ORDERABLES - DEVICE Final Result Performing Organization Address [facility] Co de Phone Number [facility] [place] [employer] [place] [address] * POCT glucose (03/06/2023 11:53 PM CDT) Glucose, POC 129 70 - 199 mg/dL [facility] Blood 03/06/2023 11:5 3 PM CDT 03/06/2023 11:53 PM CDT Carmen Monte MD LAB POCT ORDERABLES - DEVICE Final Result Performing Organization Address [facility] [place] [address] * POCT glucose (03/06/2023 10:56 PM CDT) Glucose, POC 139 70 - 199 mg/dL [facility] Blood 03/06/2023 10:5 6 PM CDT 03/06/2023 10:56 PM CDT Carmen Monte MD LAB POCT ORDERABLES - DEVICE Final Result Performing Organization Address [facility] Co de Phone Number [facility] Department [place] [address] * (ABNORMAL) POCT glucose (03/06/2023 9:54 PM CDT) Glucose, POC 249(H) 70 - 199 mg/dL [facility] Blood 03/06/2023 9:54 PM CDT 03/06/2023 9:54 PM CDT [facility] LAB POCT ORDERABLES - DEVICE Final Result Performing Organization Address [facility] de Phone Number [facility] Department [place] [address] * (ABNORMAL) Lipid panel (03/06/2023 9:15 PM CDT) Cholesterol 106 30 - 199 mg/dL [facility] Comment: Interpretive Data Ages < or = [...] on 2018. Triglycerides 93 <=149 mg/dL [facility] Comment: Interpretive Data Ages < or = [...] revised on 2018. HDL 20(L) >=40 mg/dL [facility] Comment: Interpretive Data Ages < or = [...] 2018. LDL, calculated 67 <=129 mg/dL [facility] Comment: Interpretive Data Ages < or = [...] on 2018. Non-HDL Cholesterol 86 mg/dL [facility] Comment: Interpretive Data Ages [...] last revised on 2018. Chol/HDL ratio 5 [facility] Blood 03/06/2023 9:15 PM CDT 03/06/2023 9:36 PM CDT Carmen Monte MD LAB BLOOD ORDERABLES Final Result Performing Organization Address City/State/[facility] de Phone Number [facility] Department [place] [address] * (ABNORMAL) Hemoglobin A1c (03/06/2023 9:15 PM CDT) Hgb A1C 13.3(H) 4.0 - 5.6 % [facility] Estimated Average Glucose 335 mg/dL [facility] Comment: The ADA recommends reporting an estimated [...] BLOOD ORDERABLES Final Result Performing Organization Address City/State/[facility] Co de Phone Number [facility] Department [place] [address] * eGFR (03/06/2023 9:15 PM CDT) eGFR >90 90 - 130 mL/min/1. 73 m2 [facility] Comment: Interpretive Data Reference Interval Normal ?>/= [...] Matheus JARAMILLO LAB BLOOD ORDERABLES Final Result [facility] Department [place] [address] * (ABNORMAL) Differential, auto (03/06/2023 9:15 PM CDT) Neutrophil abs 16.7(H) 1.7 - 6.5 K/cumm [facility] Imm gran abs 0.4(H) 0.0 - 0.1 K/cumm [facility] Lymphocyte abs 2.1 0.8 - 3.3 K/cumm [facility] Monocyte abs 1.9(H) 0.2 - 0.8 K/cumm [facility] Eosinophil abs 0.1 0.0 - 0.5 K/cumm [facility] Basophil abs 0.1 0.0 - 0.1 K/cumm [facility] Neutrophil pct 78.4 % [facility] Comment: Interpretive Data Percent cell count reference ranges are not reported, since discordance with absolute values may lead to misinterpretation of CBC data. Current Interpretive Data was last revised on 2017. Imm gran pct 1.8 % [facility] Comment: Interpretive Data Percent cell count reference ranges are not reported, since discordance with absolute values may lead to misinterpretation of CBC data. Current Interpretive Data was last revised on 2017. Lymphocyte pct 9.8 % [facility] Comment: Interpretive Data Percent cell count reference ranges are not reported, since discordance with absolute values may lead to misinterpretation of CBC data. Current Interpretive Data was last revised on 2017. Monocyte pct 9.1 % [facility] Comment: Interpretive Data Percent cell count reference ranges are not reported, since discordance with absolute values may lead to misinterpretation of CBC data. Current Interpretive Data was last revised on 2017. Eosinophil pct 0.5 % [facility] Comment: Interpretive Data Percent cell count reference ranges are not reported, since discordance with absolute values may lead to misinterpretation of CBC data. Current Interpretive Data was last revised on 2017. Basophil pct 0.4 % [facility] Comment: Interpretive Data Percent cell count reference ranges are not reported, since discordance with absolute values may lead to misinterpretation of CBC data. Current Interpretive Data was last revised on 2017. Blood 03/06/2023 9:15 PM CDT 03/06/2023 9:35 PM CDT Matheus JARAMILLO LAB BLOOD ORDERABLES Final Result Performing Organization Address [facility]/ZIP Co de Phone Number [facility] [place] [address] * (ABNORMAL) Beta-hydroxybutyrate (03/06/2023 9:15 PM CDT) [facility] Beta-Hydroxybut yrate 0.9(H) 0.0 - 0.5 mmol/L [facility] Blood 03/06/2023 9:15 PM CDT 03/06/2023 9:33 PM CDT Matheus JARAMILLO LAB BLOOD ORDERABLES Final Result Performing Organization Address [facility] de Phone Number [facility] [place] [address] * (ABNORMAL) CBC with auto differential (03/06/2023 9:15 PM CDT) [facility] WBC 21.3(H) 3.8 - 9.9 K/cumm [facility] Hgb 11.6(L) 13.0 - 17.5 g/dL [facility] Hct 35.8(L) 38.9 - 50.3 % [facility] Plt 348 150 - 400 K/cumm [facility] MPV 9.3 9.1 - 12.3 fL [facility] RBC 4.23(L) 4.30 - 5.80 M/cumm [facility] MCV 84.6 81.3 - 96.4 fL [facility] MCH 27.4 27.1 - 33.3 pg [facility] MCHC 32.4 32.3 - 35.7 g/dL [facility] RDW CV 13.3 11.1 - 14.9 % [facility] RDW SD 41.1 35.7 - 48.1 fL [facility] NRBC abs 0.00 0.00 - 0.01 K/cumm [facility] Blood 03/06/2023 9:15 PM CDT 03/06/2023 9:35 PM CDT Matheus JARAMILLO LAB BLOOD ORDERABLES Final Result [facility] [place] [employer] [address] * Lactate (03/06/2023 9:15 PM CDT) Lactate 1.9 0.7 - 2.0 mmol/L [facility] Blood 03/06/2023 9:15 PM CDT 03/06/2023 9:37 PM CDT Matheus JARAMILLO LAB BLOOD ORDERABLES Final Result Performing Organization Address [facility] Co de Phone Number [facility] [place] [address] * (ABNORMAL) Calcium, ionized (03/06/2023 9:15 PM CDT) Calcium, Ionized 4.15(L) 4.50 - 5.10 mg/dL [facility] Blood 03/06/2023 9:15 PM CDT 03/06/2023 9:33 PM CDT Matheus JARAMILLO LAB BLOOD ORDERABLES Final Result Performing Organization Address [facility]/ZIP Co de Phone Number [facility] [place] [employer] [address] * Phosphorus (03/06/2023 9:15 PM CDT) Pathologist [facility] Phosphorus, pl 4.3 2.3 - 4.5 mg/dL [facility] Blood 03/06/2023 9:15 PM CDT 03/06/2023 9:36 PM CDT Matheus JARAMILLO LAB BLOOD ORDERABLES Final Result [facility] Department [place] [address] * Magnesium (03/06/2023 9:15 PM CDT) [facility] Magnesium 2.0 1.4 - 2.5 mg/dL [facility] Blood 03/06/2023 9:15 PM CDT 03/06/2023 9:36 PM CDT Matheus JARAMILLO LAB BLOOD ORDERABLES Final Result Performing Organization Address [facility] de Phone Number [facility] Department [place] [address] * (ABNORMAL) Comprehensive metabolic panel (03/06/2023 9:15 PM CDT) [facility] Sodium 140 135 - 145 mmol/L [facility] Potassium, pl 3.5 3.3 - 4.9 mmol/L [facility] Chloride 101 97 - 110 mmol/L [facility] CO2 26 22 - 32 mmol/L [facility] Anion gap 13 2 - 15 mmol/L [facility] BUN 14 6 - 25 mg/dL [facility] Creatinine 0.79(L) 0.80 - 1.30 mg/dL [facility] Glucose 217(H) 70 - 199 mg/dL [facility] Comment: Interpretive Data Fasting glucose >/= 126 [...] 2022. Calcium 8.3(L) 8.5 - 10.3 mg/dL [facility] Bilirubin, total 0.4 0.1 - 1.2 mg/dL [facility] Protein, pl 5.9(L) 6.5 - 8.5 g/dL [facility] Albumin 2.4(L) 3.5 - 5.0 g/dL [facility] Alk phos 113 40 - 130 Units/L [facility] ALT 15 7 - 55 Units/L [facility] AST 25 10 - 50 Units/L [facility] Blood 03/06/2023 9:15 PM CDT 03/06/2023 9:36 PM CDT Matheus JARAMILLO LAB BLOOD ORDERABLES Final Result Performing Organization Address City/[facility]/ZIP Co de Phone Number [facility] Department [place] [address] * (ABNORMAL) POCT glucose (03/06/2023 8:59 PM CDT) Glucose, POC 234(H) 70 - 199 mg/dL [facility] Blood 03/06/2023 8:59 PM CDT 03/06/2023 8:59 PM CDT Carmen Monte MD LAB POCT ORDERABLES - DEVICE Final Result [facility] Department [place] [address] * (ABNORMAL) POCT glucose (03/06/2023 7:56 PM CDT) Glucose, POC 238(H) 70 - 199 mg/dL [facility] Blood 03/06/2023 7:56 PM CDT 03/06/2023 7:56 PM CDT us Carmen Monte MD LAB POCT ORDERABLES - DEVICE Final Result [facility] Department [place] [address] * Critical Care (03/06/2023 7:17 PM CDT) [...] plan with the ICU team and other medical/supervisor home energy consultant staff, making frequent assessments and decisions [...] (ABNORMAL) POCT glucose (03/06/2023 6:52 PM CDT) [facility] Signature Glucose, POC 282(H) 70 - 199 mg/dL [facility] Blood 03/06/2023 6:52 PM CDT 03/06/2023 6:52 PM CDT Carmen Monte MD LAB POCT ORDERABLES - DEVICE Final Result Performing Organization Address [facility] Co de Phone Number [facility] [place] [address] * (ABNORMAL) POCT glucose (03/06/2023 6:17 PM CDT) Glucose, POC 269(H) 70 - 199 mg/dL [facility] Blood 03/06/2023 6:17 PM CDT 03/06/2023 6:17 PM CDT Carmen Monte MD LAB POCT ORDERABLES - DEVICE Final Result Performing Organization Address [facility] Co de Phone Number [facility] [place] [address] * (ABNORMAL) POCT glucose (03/06/2023 5:40 PM CDT) Glucose, POC 277(H) 70 - 199 mg/dL [facility] Blood 03/06/2023 5:40 PM CDT 03/06/2023 5:40 PM CDT Carmen Monte MD LAB POCT ORDERABLES - DEVICE Final Result Performing Organization Address [facility] [place] [address] * (ABNORMAL) Aerobic and anaerobic culture and gram stain Abscess Scrotum (03/06/2023 5:26 PM CDT) Direct Specimen Exam Stain: Moderate polymorphonuclear leukocytes seen. Moderate Gram Positive Cocci Moderate Gram Positive Bacilli Moderate Gram Negative Bacilli [facility] Report Final Report: Moderate Streptococcus anginosus For susceptibility results, refer to accession number [id number] on the scrotum tissue culture from 03/06/2023 Few Mixed aerobic and anaerobic microorganisms (.) [facility] Organism STREPTOCOCCUS ANGINOSUS [facility] Organism MIXED AEROBIC AND ANAEROBIC MICROORGANISMS [facility] Abscess (Scrotum) 03/06/2023 5:26 PM CDT 03/06/2023 7:46 PM CDT Narrative [facility] - 03/16/2023 7:53 AM CDT Perineal Abscess #2 for Culture Specimen received on an ESwab. Testing performed by [facility] ([phone]) Specimens submitted from normally sterile body sites [...] us Pilar Johnson MD LAB MICROBIOLOGY - [facility] AL ORDERABLES Final Result [facility] Department [place] [address] * (ABNORMAL) Tissue aerobic and anaerobic culture and gram stain Tissue Scrotum (03/06/2023 5:18 PM CDT) Direct Specimen Exam Stain: Rare polymorphonuclear leukocytes seen. Abundant Gram Positive Cocci Abundant Gram Negative Bacilli Moderate Gram Positive [facility]illi [facility] Report Final Report: Moderate Streptococcus anginosus Few Mixed aerobic and anaerobic microorganisms (.) [facility] Organism STREPTOCOCCUS ANGINOSUS [facility] Organism MIXED AEROBIC AND ANAEROBIC MICROORGANISMS [facility] Tissue (Scrotum) 03/06/2023 5:18 PM CDT 03/06/2023 7:40 PM CDT Narrative [facility] - 03/16/2023 7:52 AM CDT Perineal Tissue for Culture Testing performed by [facility] ([phone]) Specimens submitted from normally sterile body sites [...] MICROBIOLOGY - G ENERAL ORDERABLES Final Result [facility] Department [place] [address] * (ABNORMAL) Aerobic and anaerobic culture and gram stain Abscess Scrotum (03/06/2023 5:17 PM CDT) Direct Specimen Exam Stain: Abundant polymorphonuclear leukocytes seen. Abundant Gram Positive Cocci Abundant Gram Negative Bacilli Moderate Gram Positive Bacilli [facility] Report Final Report: Abundant Streptococcus anginosus For susceptibility results, refer to accession number [id number] on the scrotum tissue culture from 03/06/2023 Few Mixed aerobic and anaerobic microorganisms (.) [facility] Organism STREPTOCOCCUS ANGINOSUS [facility] Organism MIXED AEROBIC AND ANAEROBIC MICROORGANISMS [facility] Abscess (Scrotum) 03/06/2023 5:17 PM CDT 03/06/2023 7:44 PM CDT Narrative [facility] - 03/16/2023 7:52 AM CDT Perineal Abscess Specimen received in a sterile container. Testing performed by [facility] ([phone]) Specimens submitted from normally sterile body sites [...] AL ORDERABLES Final Result Performing Organization Address [facility] Co de Phone Number [facility] Department [place] [address] * (ABNORMAL) POCT glucose (03/06/2023 4:08 PM CDT) Glucose, POC 298(H) 70 - 199 mg/dL [facility] Blood 03/06/2023 4:08 PM CDT 03/06/2023 4:08 PM CDT Carmen Monte MD LAB POCT ORDERABLES - DEVICE Final Result Performing Organization Address [facility] Co de Phone Number [facility] Department [place] [employer] [place] [address] * US Arterial Duplex Lower Extremity Bilateral (03/06/2023 3:21 PM CDT) Anatomical Region Laterality Modality Vascular Bilateral Ultrasound 03/06/2023 1:52 PM CDT Narrative 03/07/2023 12:23 PM CDT [facility] - Department of Vascular Surgery, Vascular Laboratory [address] [place] [id number] [place] Lower Extremity Arterial Duplex Report Patient Name: [...] ?Units ?Measurement ? Value ?Units ? Rt LEAD CONSULTANT Dst PSV ?93 ? cm/s ? Lt LEAD CONSULTANT Dst PSV ?154 ?cm/s ? Rt Profunda [...] Lower ? - Findings: Performing Director Of Marketing: Anca Alexis RVT ([place]). Right Common [...] Duplex imaging of the bilateral lower extremity chenega arteries reveals patent vessels with no flow [...] MD FACS 2023-03-07 12:23:36 CDT CC: CC: Procedure Note Alberto Ching MD - 03/07/2023 [facility] - Department of Vascular Surgery,Vascular Laboratory [address] [place] [address] [place] Lower Extremity Arterial Duplex Report Patient Name: RENE HYATT MPatient ID: [id number] : [id number] Date: 03/06/2023 1:52:30 PM Gender: MAccession #: [id number] Tech: TFLocation: [id number] Ref.Provider: ANIL BIRMINGHAMQuality: Adequate Order Provider: ANIL BIRMINGHAM Procedures: Arterial Report: Bilateral Lower Extremity Arterial Duplex Exam. Indications: Left foot metatarsal base ulcer, and left big toe ulcer, did not know hehas diabetes. Measurements: Right Lower Left Lower Measurement Value Units MeasurementValue Units Rt LEAD CONSULTANT Dst PSV 93 cm/s Lt LEAD CONSULTANT Dst ASG450 cm/s Rt Profunda Prx PSV 51 cm/s Lt Profunda Prx PSV86 cm/s Rt Superficial Femoral Prx PSV 106 cm/s Lt Superficial FemoralPrx PSV 145 cm/s Rt Superficial Femoral Mid PSV 90 cm/s Lt Superficial FemoralMid PSV 130 cm/s Rt Superficial Femoral Dst PSV 73 cm/s Lt Superficial FemoralDst PSV 86 cm/s Rt Popliteal Artery 90 cm/s Lt Popliteal [id number] cm/s Rt Post Tibial Prx PSV 86 cm/s Lt Post Tibial Prx PSV92 cm/s Rt Post Tibial Mid PSV 96 cm/s Lt Post Tibial Mid PSV97 cm/s Rt Post Tibial Dst PSV 83 cm/s Lt Post Tibial Dst PSV90 cm/s Rt Ant Tibial Prx PSV 77 cm/s Lt Ant Tibial Prx [id number] cm/s Rt Ant Tibial Mid PSV 73 cm/s Lt Ant Tibial Mid [id number] cm/s Rt Ant Tibial Dst PSV 75 cm/s Lt Ant Tibial Dst [id number] cm/s Rt Peroneal Prx PSV 67 cm/s Lt Peroneal Prx PSV76 cm/s Rt Peroneal Mid PSV 54 cm/s Lt Peroneal Mid PSV62 cm/s Rt Peroneal Dst PSV 52 cm/s Lt Peroneal Dst PSV77 cm/s Measurement Value Units MeasurementValue Units Right Lower Left Lower - Findings: Performing Director Of Marketing: Anca Alexis RVT ([place]). Right Common [...] Duplex imaging of the bilateral lower extremity chenega arteries revealspatent vessels with no flow limiting [...] above. Electronically Signed By: Alberto Ching MD [facility] 2023-03-07 12:23:36 CDT CC: CC: us Anil Birmingham MD IMG US PROCEDURES Final Resu lt * US Arterial Doppler Lower Extremity Bilateral (03/06/2023 3:14 PM CDT) Anatomical Region Laterality Modality Vascular Bilateral Ultrasound 03/06/2023 1:53 PM CDT Narrative 03/07/2023 12:41 PM CDT [facility] - Department of Vascular Surgery, Vascular Laboratory [address] [place] [address] Lower Extremity Arterial Doppler Report Patient Name: RENE HYATT M : 1980 Study Date: 03/06/2023 1:53:00 PM Gender: M Tech: Anca Alexis t Location: 2183 Ref.Provider: ANIL BIRMINGHAM Quality: Adequate [...] Brachial Pressure ? 110 ?mmHg ? Rt POTATO LOADER Pressure ?162 ?mmHg ? Lt POTATO LOADER Pressure ?158 ?mmHg ? Rt DPA Pressure [...] - ? - Findings: Performing Director Of Marketing: Anca Alexis RVT ([place]). Bilateral All [...] above. Electronically Signed By: Alberto Ching MD [facility] 2023-03-07 12:41:16 CDT CC: CC: Procedure Note Alberto Ching MD - 03/07/2023 [facility] - Department of Vascular Surgery,Vascular Laboratory [address] [place] [id number] Lower Extremity Arterial Doppler Report Patient Name: RENE HYATT MPatient ID: [id number] : [id number] Date: 03/06/2023 1:53:00 PM Gender: MAccession #: [id number] Tech: Anca Alexis RvtLocation: 2183 Ref.Provider: ANIL BIRMINGHAMQuality: Adequate Order Provider: ANIL BIRMINGHAM Procedures: Arterial Report: Bilateral lower extremity arterial Doppler exam at rest. Indications: Left foot metatarsal base ulcer, and left big toe ulcer, did not know hehas diabetes, bilateral leg swelling. Measurements: Right - Left - Measurement Value Units Measurement ValueUnits Rt Brachial Pressure 100 mmHg Lt Brachial Pressure 110mmHg Rt POTATO LOADER Pressure 162 mmHg Lt POTATO LOADER Pressure 158mmHg Rt DPA Pressure 159 mmHg [...] Left - - Findings: Performing Director Of Marketing: Anca Alexis RVT ([place]). Bilateral All [...] Signed By: Alberto Ching MD FACS 2023-03-07 12:41:16 CDT CC: CC: us Anil Birmingham MD [facility] PROCEDURES Final Resu lt * Check Sample (03/06/2023 12:17 PM CDT) ABO Rh B Negative [facility] OTHER 03/06/2023 12:1 7 PM CDT 03/06/2023 12:43 PM CDT us Carolee Daly MD LAB BLOOD ORDERABLES Shilpi montano Result [facility] Department [place] [address] * [place] [facility] ILL/INJURED PATIENT INIT 30-74 MIN [...] Lactate w/ Reflex (03/06/2023 11:02 AM CDT) Sepsis Lactate 1.8 0.7 - 2.0 mmol/L [facility] Blood 03/06/2023 11:0 2 AM CDT 03/06/2023 11:13 AM CDT Anil Birmingham MD LAB BLOOD ORDERABLES Final R esult Performing Organization Address [facility] [place] [address] * (ABNORMAL) Protime-INR (03/06/2023 11:02 AM CDT) PT 18.3(H) 10.3 - 13.7 sec [facility] INR 1.61(H) 0.90 - 1.20 [facility] Comment: Interpretive data Oral anticoagulant therapeutic ranges: Venous thromboembolism prophylaxis or treatment: 2.0-3.0 CARDIOLOGY Standard range: 2.0-3.0 High-intensity range: 2.5-3.5 Refer to indication-specific guidelines for appropriate target ranges for prosthetic heart valve replacement. Current interpretive data was last revised on 2019. Blood 03/06/2023 11:0 2 AM CDT 03/06/2023 11:20 AM CDT Anil Birmingham MD LAB BLOOD ORDERABLES Final R [facility] Performing Organization Address [facility] [place] [address] * Type and screen (03/06/2023 11:02 AM CDT) Keenan, indirect Negative [facility] ABO Rh B Negative [facility] Blood 03/06/2023 11:0 2 AM CDT 03/06/2023 11:17 AM CDT Narrative [facility] - 03/06/2023 12:18 PM CDT Has the patient had Daratumumab or Isatuximab in the past 6 months?->Unknown us Anil Birmingham MD LAB BLOOD BANK TEST ORDERABL ES Final Result [facility] Department [place] [address] documented in this encounter Visit Diagnoses Diagnosis Scrotal abscess- Primary 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 Scrotal abscess 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 Perineal abscess documented in this encounter Admitting [...] Given 03/19/2023 8:36 AM CDT 50,000 Units gentamicin (GARAMYCIN) injection As needed, Starting on Thu03/10/23 at 0821, Intra-Op Given 03/10/2023 8:21 AM CDT 12 mL Surgical Site glucagon injection 1 mg 1 mg, intramuscular, [...] Every 24 hours scheduled, First dose on 03/15/23 at 1400, Flush line with sodium chloride [...] PRN, nausea, vomiting, 2nd line, Starting on 03/09/23 at 0935 Given 03/09/2023 10:20 PM CDT [...] chloride 0.9% irrigation As needed, Starting on Thu03/10/23 at 0818, Intra-Op Given 03/10/2023 8:22 AM CDT 3,000 mL Surgical Site Given 03/10/2023 8:18 AM CDT 1,000 mL Rocha rgical Site white petrolatum-mineral oiL (EUCERIN) cream topical, 2 [...] Marcos Link RN)1221 (Given - Provider: Marina Washington RN)1739 (Given - Provider: Marina Washington RN) 0110 [...] Giron, RN)1104 (New Bag - Provider: Marina Washington, ARYAN)1140 (Stopped - Provider: Marina Washington, ARYAN)1644 (New Bag - Provider: Marina Washington, ARYAN)1715 (Stopped - Provider: Marina Washington, ARYAN)2139 (New Bag - Provider: Yancy Stephenson RN) 0442 (New Bag - Provider: Yancy Stephenson RN)1018 (New Bag - Provider: Clara Carrizales, ARYAN)1600 (Due) atorvastatin (LIPITOR) tablet 20 mg 20 mg, oral, Nightly, First dose on Thu03/10/23 at 2215 2137 (Given - Provider: Annamarie Giron, ARYAN) 2137 (Given - Provider: Yancy Stephenson RN) calcium carbonate (OS-KRISTY) tablet 1,250 mg 1,250 mg (500 mg of elemental calcium), oral, 2 times daily, First dose on Thu03/16/23 at 1330 0918 (Given - Provider: Marina Washington RN)2136 (Given - Provider: Annamarie Giron, ARYAN) 0952 (Given - Provider: Marina Washington RN)2137 (Given - Provider: Yancy Stephenson RN) 0825 (Given - Provider: Clara Carrizales, ARYAN) enoxaparin (LOVENOX) syringe 40 mg 40 mg, subcutaneous, Every 12 hours scheduled, First dose (after last modification) on Thu03/09/23 at 0915, Indications: Deep Vein Thrombosis Prevention 0919 (Given - Provider: Marina Washington RN)2136 (Given - Provider: Annamarie Giron RN) 0952 (Given - Provider: Marina Washington RN)2137 (Given [...] RN) 0953 (New Bag - Provider: Marina Washington RN)1104 (Stopped - Provider: Marina Washington RN) 0859 (New Bag - Provider: Ti Henry, ARYAN) pantoprazole DR (PROTONIX) extended release tablet 40 mg 40 mg, oral, Daily, First dose on Thu03/15/23 at 1530, Do not crush, chew, cut, dissolve, open or otherwise manipulate tablet/capsule., Indications: Stress Ulcer Prophylaxis 0918 (Given - Provider: Marina Washington, ARYAN) 0953 (Given - Provider: Marina Washington RN) [...] (TYLENOL) tablet 1,000 mg 2 1 03/06/2023 BUPivacaine (MARCAINE) 0.25 % (2.5 mg/mL) preservative [...] mL 1 10/2022 sodium chloride 0.9% irrigation 3 3 03/06/2023 influenza quadrivalent 2022- 2023 (FLULAVAL,FLUARIX,FLUZONE) 60 mcg (15 mcg x 4)/0.5 mL vaccine (STANDARD age 6 months and up) 0.5 mL 1 03/11/2023 insulin lispro (HumaLOG, ADM ELOG) 100 unit/mL injection 8 Units 1 03/11/2023 atorvastatin (LIPITOR) tablet 20 mg 1 03/10 ertapenem (INVanz) 1,000 mg in sterile water 10 mL (100 mg/mL) IV syringe 1 03/10/2023 magnesium sulfate 4 g/100 mL in water (premix) 4 g 2 03/10/2023 03/06/2023 ampicillin-sulbactam (UNASYN ) 3 g/110 mL [...] (COLACE) capsule 100 mg 1 0 03/06/2023 gentamicin (GARAMYCIN) injection 1 03/06/20 HYDROmorphone (DILAUDID) injection 0.5 mg 2 03/06/2023 [...] WOUND CARE 3 03/23/20232022 IP CONSULT TO ARCHITECTURAL WOOD MODEL MAKER 2 3 03/06/2023 IP CONSULT TO NUTRITION [...] 03/06/2023 documented in this encounter Care Teams Toe Laster Relationship Specialty Start Date End Date No, Physician PCP - General 03/06/23 03/24/23 documented as of this encounter
--- OUTSIDE RECORDS SUMMARY | 2024-06-08 00:10 | XMS_ITS | Encounter Summary ---
Author Organization [facility] Healthcare Address [address] [place] [address] Care Team Providers Care Surgical Instrument Technician Name Role Phone No, Physician Primary Care Provider [phone] Reason for Visit * Auth/Cert (Routine) Specialty Diagnoses / Procedures Referred By Contac t Referred To Contact Diagnoses Scrotal abscess Perineal abscess [facility]S GANGR[facility] Procedures na Referral ID Status Reason Start Date Expiration Date Visits Re quested Visits Authorized [id number] 1 1 Encounter Details Date Type Department Care Team (Late st Contact Info) Description 03/10/2023 7:33 AM CDT Anesthesia Event [facility] Operating Room [address] [place] [id number] Lisa Carrion MD [address] [facility] [address] [place] [address] Sera Peralta NP [address] [facility] [id number] [place] [address] Anesthesia Record Procedure Summary Procedure Name Responsible Anesthesiologist Anesthesia Start Time Anesthesia Stop Time DEBRIDEMENT PERINEAL WOUND (Perineum) Lisa Carrion MD 03/10/23 0733 03/10/23 0916 Events Date Time Event Comment 03/10/2023 0725 In Room 0729 0733 An Start 0733 An Start Data 0745 An Induction The patient was reevaluated immediately before moderate or deep sedation use and before anesthesia induction. 0747 An Intubation 0754 Anesthesia Ready 0818 Proc Start 0818 Incision Start 0833 Quick Note 7800 ICU notifi ed that patient will return in 20-30 minutes 0855 An Extubation 0857 Proc Fin 0901 an stop data 0902 Out of Room 0916 Handoff to RN I completed my handoff [...] the time of handoff: No value filed. 0916 An Stop 0916 Quick Note VSS during ortez sport. Handoff completed in 7800 ICU. Report given with no remaining questions. Meds Name Total lidocaine (cardiac) syringe 2 % 100 mg propofol 200 mg fentaNYL 100 mcg HYDROmorphone 2 mg/mL 1 mg succinylcholine 160 mg ampicillin-sulbactam (UNASYN) 3 g/110 mL in sodium chloride 0.9% (premix) 3 g 0 g famotidine 20 mg phenylephrine infusion (100 mcg/mL) 0.89 mg ondansetron 2 mg/mL PF 4 mg LR 200 mL * Agents Name O2% N2O O2 N2O Air Sevoflurane Inspired Sevoflurane * Blood No blood administrations on file. Lines, Drains, and Airways Type Details Placement Removal Peripheral IV Placement Date: 03/06/23; Placement Time: 0540; Catheter Size: 20 G; Orientation: Right; Location: Antecubital; Site Prep: Chlorhexidine; Technique: Anatomical landmarks; Inserted by: ALEXEI RN; Removal Date: 03/19/23; Removal Time: 1548 03/06/23 0540 by Tanja Hannah RN 03/19/23 1548 by Elysia Clarke, ARYAN RETIRED Wound 03/06/23; 0723; Yes; Ulceration (non-pressure ulcer); Left; Foot (distal left great toe & left ball of great toe); Diabetic ulcer; 05/06/23 03/06/23 0723 by Ila Myers RN 05/06/23 0000 by Smiley Chan, ARYAN RETIRED Wound 03/06/23; 1226; Yes; Abscess; Scrotum; reddened scrotum noelle, +edema, tender to touch, not open or weaping; 04/17/23 03/06/23 1226 by Alisia Delarosa RN 04/17/23 0000 by Smiley Chan RN Urethral Catheter Placement Date: 03/06/23; Placement Time: 1703; Inserted by: Carlton Whitfield MD; Type: Straight-tip, Non-latex; Balloon Size: 10 mL; Urine Returned: Yes; Removal Date: 03/12/23; Removal Time: 11103/06/23 1703 by Nicole Veloz RN 03/12/23 1118 by Vianey Bhakta RN RETIRED Surgical Site 03/06/23; 1728; Perineum; 04/24/23 03/06/23 1728 by Nicole Veloz RN 04/24/23 0000 by Smiley Chan RN Peripheral IV Placement Date: 03/06/23; Placement Time: 2200; Catheter Size: 20 G; Orientation: Left; Location: Antecubital; Site Prep: Chlorhexidine; Inserted by: avtar BAEZA; Patient Tolerance: Tolerated well; Removal Date: 03/11/23; Removal Time: 1040; Removal Reason: Removal date unknown/not present on admission 03/06/23 2200 by Jordi Grewal RN 03/11/23 1040 by Luz Elena Gentile RN RETIRED Surgical Site 03/07/23; 0945; Scrotum; 04/24/23 03/07/23 0945 by Christie Mehta RN 04/24/23 0000 by Smiley Chan RN RETIRED Negative Pressure Wound Therapy 03/07/23; 1028; Robles; (one piece of black sponge cut in 2 pieces); Scrotum, Perineum; 03/11/23; 1117 03/07/23 1028 by Christie Mehta RN 03/11/23 1117 by Luz Elena Gentile RN Peripheral IV Placement Date: 03/08/23; Placement Time: 0530; Catheter Size: 20 G; Orientation: Anterior, Distal, Right; Location: Forearm; Inserted by: dilan baeza; Insertion Attempts: 1; Patient Tolerance: Tolerated well; Removal Date: 03/16/23; Removal Time: 1849 01/23 0530 by Jordi Grewal RN 03/16/231848 by Nan Tamayo RN ETT Placement Date: 03/10/23; Placement Time: 811 (created via procedure documentation); Mask Ventilation: 0; Technique: Video laryngoscopy; Type: ETT - single; Single Lumen Tube Size: 7.5 mm; Cuffed: Yes; Laryngoscope: Hernan; Blade Size: 4; Location: Oral; Insertion Attempts: 1; Placement Verification: Auscultation, Capnometry; Removal Date: 03/10/23; Removal Time: 85403/10/23 08 by Rona Rendon CRNA 03/10/23 08 by Rona Rendon CRNA documented in this encounter Social History Tobacco Use Types Packs/Day Years Used Date Smoking Tobacco: Never Sex and Gender Information Value Date Recorded Sex Assigned at Not on file Legal Sex Male 7:12 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 OR POD 1 ROOM 326 / [facility] OR POD 1 Anesthesia Start: 732 Anesthesia Stop: 915 Procedure: DEBRIDEMENT PERINEAL WOUND (Perineum) Diagnosis: Perineal abscess (Perineal abscess [L02.215]) Surgeons: Hans Negron MD Responsible Provider: Lisa Carrion MD Anesthesia Type: general ASA Status: 3 Anesthesia Type: general Last vitals BP 138/78 (BP Location: Left arm, Patient Position: HOB 30 degrees) Pulse 86 Temp 36.4 ??C (97.5 ??F) (Oral) Resp (!) 0 SpO2 95% Anesthesia Post Evaluation Patient location during evaluation: ICU Patient participation: complete - patient participated Level of consciousness: arouses five piece expansion maker hand Pain score: 3 Pain management: satisfactory to patient Airway patency: adequate Evidence of recall: no Cardiovascular status: acceptable, hemodynamically stable and blood pressure returned to baseline Respiratory status: acceptable and face mask Hydration status: acceptable Pt is: normothermic Nausea/Vomiting status: none Comments: Patient resting comfortably in 7800 ICU. Report given to ICU team. VSS No notable events documented. Cosigned by Lisa Carrion MD at 03/10/2023 9:28 AM CDT * Anesthesia Procedure Notes - Rona Rendon CRNA - 03/10/2023 8:12 AM CDT Associated Order(s): Airway Airway Patient location: OR Urgency: elective Indications for airway management: anesthesia Difficult airway: no Staff: Supervising provider: Lisa Carrion MD Placed by: CATTLE DIPPER: Rona Rendon CRNA Emergent airway documentation: Risks and benefits discussed: yes Consent obtained: yes Consent given by: patient Airway prep: Preoxygenated: yes Patient position: sniffing Mask difficulty assessment: 0 - not attempted Spontaneous ventilation during airway: absent Sedation level during airway: GA Final airway details: Final airway type: endotracheal airway Tube type: ETT ETT size: 7.5 mm Cuffed: yes Technique used for successful [...] Preprocedure Evaluation - Lisa Carrion MD - 03/10/2023 7:20 AM CDT Images from the original note were not included. Anesthesia Evaluation Rene Hyatt is a 42 y.o. male Procedure(s): DEBRIDEMENT WOUND EXCHANGE WOUND VACUUM Pre-Op Diagnosis Codes: * Perineal abscess [L02.215] HISTORY HPI 42 y.o. male presented to the ICU with chief complaint of necrotizing skin infection. Here for wound debridement. Past Medical History Information obtained from: patient and chart. Endocrine / Other + Diabetes mellitus - Diabetes type 2. + Obesity (BMI >30)- morbid obesity (BMI>40). Patient Active Problem List Diagnosis Scrotal abscess Ange's gangrene History reviewed. No pertinent past medical history. History reviewed. No pertinent surgical history. No Known Allergies Taking? Last Dose Start Date End Date Provider ylsbrpqxyhhle-hkovrot-gfbfznkr (EXCEDRIN MIGRAINE) 250-250-65 mg per tablet -- -- -- Provider, Katie, aspirin 325 mg tablet -- -- -- ProviderKatie, doxycycline 100 mg capsule -- 03/02/23 03/12/23 Herb Burden MD traMADoL (ULTRAM) 50 mg tablet () -- 03/02/23 03/09/23 Herb Burden MD Current Facility-Administered Medications: acetaminophen (TYLENOL) tablet 1,000 mg, 1,000 mg, oral, Q6H ASTON, 1,000 mg at 03/10/23 0516 ampicillin-sulbactam (UNASYN) 3 g/110 mL in sodium chloride 0.9% (premix) 3 g, 3 g, intravenous, Q6H ASTON, Stopped at 03/10/23 0240 calcium carbonate (TUMS) chewable tablet 1,000 mg, 400 mg of elemental calcium, oral, Daily, 1,000 mg at 03/09/23 0840 dextrose gel in packet 15 g, 15 g, oral, Q15 Min PRN OR dextrose (D10W) 10% bolus 250 mL, 250 mL, intravenous, Q15 Min PRN docusate sodium (COLACE) capsule 100 mg, 100 mg, oral, BID, 100 mg at 03/09/23 0840 OR docusate(COLACE) 10 mg/mL oral liquid 100 mg, 100 mg, feeding tube, BID, 100 mg at 03/06/232116 enoxaparin (LOVENOX) syringe 40 mg, 40 mg, subcutaneous, Q12H ASTON, 40 mg at 03/09/232100 ergocalciferol (VITAMIN D) capsule 50,000 Units, 50,000 Units, oral, Weekly, 50,000 Units at 03/09/23 0008 ertapenem (INVanz) 1,000 mg in sterile water 10 mL (100 mg/mL) IV syringe, 1,000 mg, intravenous, Once glucagon injection 1 mg, 1 mg, intramuscular, Q30 Min PRN insulin glargine (LANTUS, SEMGLEE) 100 unit/mL injection 20 Units, 20 Units, subcutaneous, Nightly,20 Units at 03/09/232136 insulin lispro (HumaLOG, ADMELOG) 100 unit/mL injection 0-10 Units, 0-10 Units, subcutaneous, TID with meals, 2 Units at 03/09/231703 insulin lispro (HumaLOG, ADMELOG) 100 unit/mL injection 0-5 Units, 0-5 Units, subcutaneous, Nightly, 1 Units at 03/09/232135 insulin lispro (HumaLOG, ADMELOG) 100 unit/mL injection 6 Units, 6 Units, subcutaneous, TID with meals, 6 Units at 03/09/23 170 ondansetron (ZOFRAN) injection 4 mg, 4 mg, intravenous, Q4H PRN, 4 mg at 03/09/23 1937 oxyCODONE (ROXICODONE) tablet 5 mg, 5 mg, oral, Q4H PRN, 5 mg at 03/08/23 1412 prochlorperazine (COMPAZINE) injection 5 mg, 5 mg, intravenous, Q6H PRN, 5 mg at 03/09/23 2220 senna (SENOKOT) tablet 1 tablet, 1 tablet, oral, Daily, 1 tablet at 03/09/23 0840 Social History Tobacco Use Smoking Status Never Smokeless Tobacco Not on file Alcohol Use: Not on file Substance and Sexual Activity Drug Use Not on file History reviewed. No pertinent family history. Vitals: 03/10/23 0400 03/10/23 0500 03/10/23 0600 BP: 147/74 155/81 147/80 Pulse: 82 83 84 Resp: 17 (!) 7 13 Temp: 36.4 ??C (97.5 ??F) SpO2: 98% 96% 95% PT: 03/06/2023: 18.3 sec (H) INR: 03/06/2023: 1.61 (H) APTT: No results found for requested labs within last 30 days. Hgb A1C: 03/06/2023: 13.3 % (H) CBC RBC: 03/10/2023: 4.05 M/cumm (L) RDW: No results found for requested labs within last 30 days. MCHC: 03/10/2023: 33.1 g/dL MCH: 03/10/2023: 27.7 pg MCV: 03/10/2023: 83.5 fL Hct: 03/10/2023: 33.8 % (L) Hgb: 03/10/2023: 11.2 g/dL (L) WBC: 03/10/2023: 10.8 K/cumm (H) MPV: 03/10/2023: 9.1 fL Platelets: 03/10/2023: 328 K/cumm RDW CV: 03/10/2023: 12.9 % RDW Sd: 03/10/2023: 39.2 fL BMP Glucose: 03/09/2023: 184 mg/dL Calcium: 03/09/2023: 8.5 mg/dL Sodium: 03/09/2023: 137 mmol/L Potassium: 03/09/2023: 4.2 mmol/L CO2: 03/09/2023: 28 mmol/L Chloride: 03/09/2023: 101 mmol/L BUN: 03/09/2023: 11 mg/dL Creatinine: 03/09/2023: 0.56 mg/dL (L) DOS Physical Exam Medical history, medications, and allergies reviewed. Attestation: This PAT evaluation 03/10/2023. Airway Exam: Mallampati: III Cervical ROM: FROM TM distance: >4 Cardiovascular Exam: Rate: regular Rhythm: regular Pulmonary Exam: LCTA, bilat EENT Exam: trachea midline Anesthesia Plan ASA 3 Planned anesthesia: General Team communication plan: oral ET tube Induction: Induction: intravenous. Postoperative Plan: Patient's planned disposition post procedure is ICU. Informed Consent: Anesthesia plan and risks discussed [...] Procedure Name Priority Date/Time Associated Diagnosis Comments AL AN PROCEDURE PLACEHOLDER Routine 03/10/2023 8:12 AM CDT AL AN ELECTIVE ENDOTRACHEAL AIRWAY Routine 03/10/2023 8:12 AM CDT documented in this encounter Results * AL AN ELECTIVE ENDOTRACHEAL AIRWAY, AL AN PROCEDURE PLACEHOLDER (03/10/2023 8:12 AM CDT) Narrative Rona Rendon CRNA - 03/10/2023 8:12 AM CDT Rona Rendon CRNA ? 03/10/2023 ??8:12 AM Airway Patient location: OR Urgency: elective Indications for airway management: anesthesia Difficult airway: no Staff: Supervising provider: Lisa Carrion MD Placed by: CATTLE DIPPER: Rona Rendon CRNA Emergent airway documentation: Risks and benefits discussed: yes Consent obtained: yes Consent given by: patient Airway prep: Preoxygenated: yes Patient position: sniffing Mask difficulty assessment: 0 - not attempted Spontaneous ventilation during airway: absent Sedation level during airway: GA Final airway details: Final airway type: endotracheal airway Tube type: ETT ETT size: 7.5 mm Cuffed: yes Technique used for successful [...] with: silk tape Number of attempts: 1 Lisa Carrion MD ANESTHESIA ORDERABLES Final Result documented in this encounter Visit Diagnoses Not on filedocumented in this encounter Administered Medications Inactive Administered Medications - up to 3 most recent administrations Medication Order MAR Action Action Date Dose Rate Site famotidine (PEPCID) injection intravenous, Administer over 2 Minutes, As needed, Starting on Thu03/10/23 at 0814, Anesthesia Intra-op Given 03/10/2023 8:14 AM CDT 20 mg fentaNYL (SUBLIMAZE) preservative free injection intravenous, As needed, Starting on Thu03/10/23 at 0745, Anesthesia Intra-op Given 03/10/2023 7:45 AM CDT 100 mcg HYDROmorphone (DILAUDID) injection intravenous, Administer over 2 Minutes, As needed, Starting on Thu03/10/23 at 0806, Anesthesia Intra-op Given 03/10/2023 8:26 AM CDT 0.5 mg Given 03/10/2023 8:06 AM CDT 0.5 mg Lactated Ringer's (LR) infusion intravenous, Continuous PRN, Starting on Thu03/10/23 at 0725, Anesthesia Intra-op New Bag 03/10/2023 7:25 AM CDT lidocaine (cardiac) (XYLOCAINE) preservative free injection intravenous, As needed, Starting on Thu03/10/23 at 0746, Anesthesia Intra-op, Indications: Ventricular ArrhythmiasIndications:Ventri cular Arrhythmias Given 03/10/2023 7:46 AM CDT 100 mg ondansetron (ZOFRAN) injection intravenous, Administer over 2 Minutes, As needed, Starting on Thu03/10/23 at 0847, Anesthesia Intra-op Given 03/10/2023 8:47 AM CDT 4 mg phenylephrine (AVEL-SYNEPHRINE) 5 mg/50 mL (100 mcg/mL) in sodium chloride 0.9% (premix) intravenous, Continuous PRN, Starting on Thu03/10/23 at 0751, Anesthesia Intra-op New Bag 03/10/2023 7:51 AM CDT 0.1 mcg/kg/min 9.702 mL/hr propofoL (DIPRIVAN) 10 mg/mL IV intravenous, As needed, Starting on Thu03/10/23 at 0746, Anesthesia Intra-op Given 03/10/2023 7:46 AM CDT 200 mg succinylcholine (ANECTINE) injection intravenous, As needed, Starting on Thu03/10/23 at 0746, Anesthesia Intra-op Given 03/10/2023 7:46 AM CDT 160 mg documented in this encounter Care Teams Surgical Instrument Technician Relationship Specialty Start Date End Date No, Physician PCP - General 03/06/23 03/24/23 documented as of this encounter
--- OUTSIDE RECORDS SUMMARY | 2024-06-08 00:11 | XMS_ITS | Encounter Summary ---
Author Organization [facility] Healthcare Address [address] [place] [address] Care Team Providers Care Fine Arts Teacher Name Role Phone No, Physician Primary Care Provider [phone] Reason for Visit * Reason Comments Groin Swelling * Auth/Cert (Routine) Specialty Diagnoses / Procedures Referred By Contac t Referred To Contact Diagnoses Scrotal abscess Perineal abscess FOUNIER'S GANGRENE Procedures na Referral ID Status Reason Start Date Expiration Date Visits Re quested Visits Authorized [id number] 1 1 Encounter Details Date Type Department Care Team (Late st Contact Info) Description 03/07/2023 9:40 AM CDT - 03/07/2023 11:15 AM CDT Surgery [facility] Operating Room 1 [place] [address] Arnaldo Robles MD [address] [facility] [address] [place] [address] EXAM UNDER ANESTHESIA Surgery Details Date/Time Status Location OR Service Patient Class Case Cl ass Case Type Trauma Case? 03/07/2023 9:40 AM Posted [facility] OR POD 1 323 Urology Inpatient Urgent - 24 hours Panel 1 Procedure LRB Anes Op Region Wound Class Comments EXAM UNDER ANESTHESIA N/A Monitor An esthesia Care Perineum Class II - Clean Contaminated EXCISIONAL DEBRIDEMENT SCROTUM AND PERINEUM N/A General Perineum Class II - Clean Contaminated Surgeon Surgeon Role Service Panel Arnaldo Robles MD Primary Urology 1 Adelita Benoit MD Resident - Assisting Urolog y 1 Celestino Henning MD Urology 1 documented in this encounter Social History Tobacco Use Types Packs/Day Years Used Date Smoking Tobacco: Never Sex and Gender Information Value Date Recorded Sex Assigned at Not on file Legal Sex Male 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 Gender Identity Not on file Sexual Orientation Not on file documented as of this encounter Last Filed Vital Signs Vital Sign Reading Time Taken Comments Blood Pressure 113/62 03/07/2023 11:15 AM CDT Pulse 83 03/07/2023 11:15 AM CDT Temperature 37.2 ??C (98.9 ??F) 03/07/2023 1 1:15 AM CDT Respiratory Rate 16 03/07/2023 11:1 5 AM CDT Oxygen Saturation 95% 03/07/2023 11: 15 AM CDT Inhaled Oxygen Concentration - - Weight 161.7 kg (356 lb 7.7 oz) 03/06/2023 7:40 PM CDT Height 198.1 cm (6' 6 ) 03/06/2023 7:40 PM CDT Body Mass Index 41.2 03/06/2023 7:40 PM CDT documented in this encounter Discharge Summaries * Ira Starks, STEEL DIVISION SUPERVISOR - 03/25/2023 3:33 PM CDT Inpatient Discharge Summary BRIEF OVERVIEW Admitting Provider: Hans Negron MD Discharge Provider: Lamonte Guzmán MD Primary Care Physician at Discharge: Herb Burden MD [phone] Admission Date: 03/06/2023 Discharge Date: 03/25/2023 Admission Location: [facility] Problems/Diagnoses: Principal Problem: Scrotal abscess Active Problems: T1DM (type 1 diabetes mellitus) (HCC) Diabetic foot ulcer (CMS/HCC) (HCC) Hypertension Vitamin D deficiency Anemia Class 3 obesity (HCC) Resolved Problems: Yamila's gangrene Adjustment disorder DETAILS OF HOSPITAL STAY Presenting Problem/History of Present Illness: Mr. 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 He was started on clindamycin, cefe/vanc and transferred to [facility] on 03/06for urology evaluation. On presentation, [...] sent. He was on martha, vanc at [facility]. His culture results are as follows: BCx 03/06 with NGTD Scrotal Abscess cx 03/06: abundant strep anginosus, mixed organisms Scrotal Tissue cx 03/06: moderate strep anginosus, mixed organisms Scrotal Abscess cx /: abundant GPCs Scrotal tissue cx 10/: moderate GPCs ID was consulted for antibiotic [...] 42 year old male who presented to [facility] ED with a chief complaint of perineal / scrotal pain and swelling and a foot ulcer. CT there showed a perineal fluid collection / abscess with gas in the collection and he was transferred to [place] for surgical care. Scrotal abscess Presented to [...] shoes with custom offloading inserts for senior care shoe gear. Home health RN to continue [...] XR Wrist Left 3 or More Views [[id number]] Collected: 03/13/231832 Order Status: Completed Updated: 03/13/231834 [...] Jeter MD Arterial Duplex Lower Extremity Bilateral [[id number]] Collected: 03/06/23 1352 Order Status: Completed Updated: 03/07/23 1224 Narrative: [facility] - Department of Vascular Surgery, Vascular Laboratory [address] [place] [address] Lower [place] Lower Extremity Arterial Duplex Report Patient Name: RENE HYATT M : 1980 Study Date: 03/06/2023 1:52:30 PM Gender: M Tech: Location: [facility] Ref.Provider: ANIL BIRMINGHAM Quality: Adequate Order Provider: ANIL BIRMINGHAM Procedures: Arterial Report: Bilateral Lower Extremity Arterial Duplex Exam. Indications: Left foot metatarsal base ulcer, and left big toe ulcer, did not know he has diabetes. Measurements: Right Lower Left Lower Measurement Value Units Measurement Value Units Rt WELL SHOOTER Dst PSV 93 cm/s Lt WELL SHOOTER Dst PSV 154 cm/s Rt Profunda Prx [...] Right Lower Left Lower - Findings: Performing Air Quality Consultant: Anca Alexis RVT ([place]). Right Common Femoral: [...] Duplex imaging of the bilateral lower extremity point hope ira arteries reveals patent vessels with no flow [...] above. Electronically Signed By: Alberto Ching MD [facility] 2023-03-07 12:23:36 CDT CC: CC: US Arterial Doppler Lower Extremity Bilateral [[id number]] Collected: 03/06/23 1353 Order Status: Completed Updated: 03/07/23 1241 Narrative: [facility] - Department of Vascular Surgery, Vascular Laboratory [address] [place] [address] Lower Extremity Arterial Doppler Report Patient Name: RENE HYATT M : 1980 Study Date: 03/06/2023 1:53:00 PM Gender: M Tech: Anca Alexis [facility] Location: [facility] Ref.Provider: ANIL BIRMINGHAM Quality: Adequate Order Provider: ANIL BIRMINGHAM Procedures: Arterial Report: Bilateral lower extremity arterial Doppler exam at rest. Indications: Left foot metatarsal base ulcer, and left big toe ulcer, did not know he has diabetes, bilateral leg swelling. Measurements: Right - Left - Measurement Value Units Measurement Value Units Rt Brachial Pressure 100 mmHg Lt Brachial Pressure 110 mmHg Rt ASSEMBLING MACHINE OPERATOR Pressure 162 mmHg Lt ASSEMBLING MACHINE OPERATOR Pressure 158 mmHg Rt DPA Pressure 159 [...] Right - Left - - Findings: Performing Air Quality Consultant: Anca Alexis RVT ([place]). Bilateral All Levels [...] above. Electronically Signed By: Alberto Ching MD [facility] 2023-03-07 12:41:16 CDT CC: CC: XR Foot Left 3 or More Views [[id number]] Collected: 03/06/23714 Order Status: Completed Updated: 03/06/23728 [...] Javier Owusu M.D. AG: AG Report ID: [id number] Reading Location: [id number] XR Chest 1 Vw Portable [[id number]] Collected: 03/06/23654 Order Status: Completed Updated: 03/06/23657 [...] Wander García M.D. RB: RB Report ID: [id number] Reading Location: [id number] CT Abdomen Pelvis W Contrast [[id number]] Collected: 03/06/23634 Order Status: Completed Updated: 03/06/23648 [...] Registered Dietitian. Additional resources available from the [place] can be found at www.diabetes.org/nutrition Other Instructions Ambulatory referral to Home Health Service Line: Home Health Primary disciplines requested: [facility] Home Health Services: Disease and Medication Management [...] under water untilcompletely healed. Home Health agency: [facility] Home [facility] (P: [phone]) You should be contacted by the home health care agency within 1-2 days regarding scheduling a visit. If you don't hear from them, please call the number listed above to follow-up. Thank you Discharge Medications: Current Medications TAKE these medications csnudzzslojhq-wihhlyt-rmiwqvwq 250-250-65 mg per tablet Take 1 tablet [...] Contact Information for Follow-ups [facility] [address] [place] [address] Next Steps: Go on 04/01/2023 Instructions: Your appointment is at 10:40 AM. Please arrive 15 minutes early. Bring a photo ID, insurance card and a list of any current medications with you to the appointment. [facility] Home Care Services Specialty: Home Health and Hospice [address] [facility] [address] Next Steps: Follow up Questions: Service Line: Home Health Primary disciplines requested: [facility] Home Health Services: Disease and Medication Management [...] fall risk Referral Status: Some Visits Scheduled [facility] (All Locations) Next Steps: Follow up Questions: Please select the performing region: [facility] (All Locations) # of visits: [...] Registered Dietitian. Additional resources available from the [place] can be found at www.diabetes.org/nutrition * Appointments* Graham Salmeron, RN - 03/11/2023 11:56 AM CDT * Discharge Instr - Other Orders* Graham Salmeron, RN - 03/24/2023 11:41 AM CDT Home Health agency: [facility] Home [facility] (P: [phone]) You should be contacted by the home [...] to home, home heal th skilled care [facility] documented in this [...] discharge needs arise, please contact the covering Green Material Value Added Assessor. 03/09/23 8549 Discharge Summary Discharge Disposition Private residence Equipment/Provider Needs No Home Needs Identified;Home Provider Services Needs Identified Home Care Agency Information Home Care Agency Type #1: [facility] Home Care Agency Name [facility] Home Health Home Care Agency Phone Number [phone] Home Care Agency Contact Spoken to Eric Home Care Agency Order Faxed to [facility] Second Home Care Agency Used? Not Needed Discharge Additional Assistance Financial assistance Discharge medication assistance needed Does the patient need discharge transport arranged? Yes Has discharge transport been arranged? Yes Details of Transportation [facility] to patient's home Trip #[phone] D/C Transport Anticipated Date 03/25/23 D/C Transport [...] family are agreeable with plan. * Ira Starks, STEEL DIVISION SUPERVISOR - 03/25/2023 3:03 PM CDT Daily Progress Note Division [facility] Medicine Name: Rene Hyatt : 1980 Today's Date: March 25, 2023 Age: 42 y.o. male Admission: 03/06/2023 Bed: [id number] LOS: 19 days Subjective Chief complaint: Scrotal abscess Interval History NAEON. No complaints at this time. Imaging of scrotal post surgical incision wound uploaded to [place]. Urology reviewed and okay with appearance, recommending [...] oral, BID enoxaparin, 40 mg, subcutaneous, Q12H [facility] ergocalciferol, 50,000 Units, oral, Once per day [...] losartan 25 03/17 Diabetic foot ulcer (CMS/HCC) ([facility]) Assessment & Plan Wound to planter 1st [...] shoes with custom offloading inserts for senior care sheogear - Heel strike shoe is causing the patient difficulty walking, collaborating with PT, nursing, DM re: solutions - collab w/ PT, ordered shoe for right foot to assist with balance / walking > mobility improved Class 3 obesity ([facility]) Assessment & Plan Complicates all aspects of [...] x 2 months and calcium supplementation for s7ekpzlm. - plan for vit d 2k daily after 50k loading phase - f/u with PCP Code status : Full Code Diet : Adult Diet Restricted; Consistent Carbohydrate Adult Discharge Diet PT/OT Dispo Rec : PT Recommendation/Plan: Inpatient Rehab Facility / OT Recommendation: [facility] Supplementary Attestation Today, I am treating [...] Patient was seen and examined with the STEEL DIVISION SUPERVISOR on 03/25/2023. Agree with the assessment and [...] rec per pt progress Recommendation/Plan OT Recommendation [facility] Facility Patient at high risk for Falls;Readmission;Injury [...] not assigned to this patient, please call [phone]. Multi-Disciplinary Problems (from Occupational Therapy) Active Problems [...] Goal Details: Mod I * Ira Starks STEEL DIVISION SUPERVISOR - 03/24/2023 5:18 PM CDT Daily Progress Note Division of Hospital Medicine Name: Rene Hyatt : 1980 Today's Date: March 24, 2023 Age: 42 y.o. male Admission: 03/06/2023 Bed: [id number] LOS: 18 days Subjective Chief complaint: Scrotal [...] shoes with custom offloading inserts for senior care sheogear - Heel strike shoe is causing [...] x 2 months and calcium supplementation for x8hijjnq. - plan for vit d 2k daily after 50k loading phase - f/u with PCP Code status : Full Code Diet : Adult Diet Restricted; Consistent Carbohydrate PT/OT Dispo Rec : PT Recommendation/Plan: Inpatient Rehab Facility / OT Recommendation: Inpatient Rehab Facility Supplementary Attestation The total encounter time on this service date was 50 minutes which was spent performing a zpzb-uz-angb encounter and personally completing the provider-level activities [...] Patient was seen and examined with the STEEL DIVISION SUPERVISOR on 03/24/2023. Agree with the assessment and [...] Age: 42 y.o. male Admission: 03/06/2023 Bed: [id number] LOS: 17 days Subjective Chief complaint: Scrotal abscess Interval History NAEON. Patient upset regarding inability to go to [facility]. following for assistance, patient would prefer to [...] % Intake/Output Summary (Last 24 hours) at 03/23/20238 Last data filed at 03/23/2023 1810 Gross [...] 03/21 AM T1DM (type 1 diabetes mellitus) ([facility]) Assessment & Plan Newly diagnosed this admission. [...] start losartan 25 03/17 Diabetic foot ulcer ([facility]/HCC) ([facility]) Assessment & Plan Wound to planter 1st [...] diabetic shoes with custom offloading inserts for long term care pharmacist sheogear - Heel strike shoe is causing [...] x 2 months and calcium supplementation for k1vgwnvl. - plan for vit d 2k daily after 50k loading phase - f/u with PCP Code status : Full Code Diet : Adult Diet Restricted; Consistent Carbohydrate PT/OT Dispo Rec : PT Recommendation/Plan: Inpatient Rehab Facility / OT Recommendation: Inpatient Rehab Facility Supplementary Attestation The total encounter time on this service date was 51 minutes which was spent performing a himp-aq-asow encounter and personally completing the provider-level activities [...] Salmeron RN - 03/23/2023 11:21 AM CDT Green Material Value Added Assessor noted patient has been recommended for IPR by PT/OT. Green Material Value Added Assessor met with the patientat bedside to discussion recommendations by therapy and to work on a potential discharge disposition plan since patient is not an IPR rehab candidate per Kristie and AKIN. Green Material Value Added Assessor provided education to patient on therapy recommendations and home health services. Patient reported he was interested in home health. clinical trial data manager provided a home health list to patient and family. Patient and family selected the following choices (preference order): NO PREFERENCE clinical trial data manager sent out referrals via [facility]. CM awaiting acceptance from a home health agency and willcontinue to work on discharge planning with patient and family. Patient not wishing to discharge to a SNF at this time and wishes to discharge to home with Home Health services if available. Stanton Salmeron INFORMATION SECURITY MANAGER Water Plant Maintenance Mechanic For emergent Case Management needs before 7 AM or after 3:30 PM Thursday-Thursday, please call the roll icer machine. For weekend and holiday Case Management needs from the hours of 8:00 AM to 4:30 PM, please see EpicTreatment team the assigned weekend Green Material Value Added Assessor. * Riya Madison, PT - 03/23/2023 9:00 [...] treatment team and contact the PT or ASSEMBLING MACHINE OPERATOR currently assigned to this patient. If a physical therapy clinician is not assigned to this patient, please call [phone]. 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 Basic Mobility - 6 [...] not assigned to this patient, please call [phone]. 03/23/23 0756 General Session Type Treatment OT [...] not assigned to this patient, please call [phone]. 03/23/23 0756 General Session Type Treatment OT [...] OT at 03/23/2023 9:37 AM CDT * EliselibradoLuis Daniel cuevas, STEEL DIVISION SUPERVISOR - 03/22/2023 11:07 AM CDT Daily Progress Note Division of Hospital Medicine Name: Rene Hyatt : 1980 Today's Date: March 22, 2023 Age: 42 y.o. male Admission: 03/06/2023 Bed: [id number] LOS: 16 days Subjective Chief complaint: Perineal [...] presentation consistent with scrotal cellulitis and not Ymaila's gangrene, though patient reports being told it [...] bleeding -CTM Hgb Diabetic foot ulcer (CMS/HCC) ([facility]) Assessment & Plan Wound to planter 1st metatarsal head. S/p debridement with podiatry 03/07, significant depth but negative probe to bone. L foot XR with no OM - continue daily dressing changes - WBAT in heel strike shoe per PT - follow up in wound center at discharge - diabetic shoes with custom offloading inserts for long term care pharmacist sheogear - Heel strike shoe is causing [...] with PCP T1DM (type 1 diabetes mellitus) ([facility]) Assessment & Plan Endocrinology following and currently [...] 24 minutes which was spent performing a xdne-ao-fexl encounter and personally completing the provider-level activities [...] AM CDT Daily Progress Note Division [facility] Medicine Name: Rene Hyatt : 1980 Today's Date: March 21, 2023 Age: 42 y.o. male Admission: 03/06/2023 Bed: [id number] LOS: 15 days Subjective Chief complaint: Perineal [...] bleeding -CTM Hgb Diabetic foot ulcer (CMS/HCC) ([facility]) Assessment & Plan Wound to planter 1st metatarsal head. S/p debridement with podiatry 03/07, significant depth but negative probe to bone. L foot XR with no OM - continue daily dressing changes - WBAT in heel strike shoe per PT - follow up in wound center at discharge - diabetic shoes with custom offloading inserts for senior care sheogear - Heel strike shoe is causing [...] with PCP T1DM (type 1 diabetes mellitus) ([facility]) Assessment & Plan Endocrinology following and currently [...] 27 minutes which was spent performing a wjjr-xy-oibi encounter and personally completing the provider-level activities [...] Age: 42 y.o. male Admission: 03/06/2023 Bed: [place] [id number] LOS: 14 days Subjective Chief complaint: Perineal [...] bleeding -CTM Hgb Diabetic foot ulcer (CMS/HCC) ([facility]) Assessment & Plan Wound to planter 1st metatarsal head. S/p debridement with podiatry 03/07, significant depth but negative probe to bone. L foot XR with no OM - continue daily dressing changes - WBAT in heel strike shoe per PT - follow up in wound center at discharge - diabetic shoes with custom offloading inserts for senior care sheogear - Heel strike shoe is causing [...] with PCP T1DM (type 1 diabetes mellitus) ([facility]) Assessment & Plan Endocrinology following and currently [...] 33 minutes which was spent performing a rccy-qr-dalf encounter and personally completing the provider-level activities [...] Age: 42 y.o. male Admission: 03/06/2023 Bed: [id number] LOS: 13 days Subjective Chief complaint: Perineal [...] bleeding -CTM Hgb Diabetic foot ulcer (CMS/HCC) ([facility]) Assessment & Plan Wound to planter 1st metatarsal head. S/p debridement with podiatry 03/07, significant depth but negative probe to bone. L foot XR with no OM - continue daily dressing changes - WBAT in heel strike shoe per PT - follow up in wound center at discharge - diabetic shoes with custom offloading inserts for senior care sheogear - Heel strike shoe is causing [...] with PCP T1DM (type 1 diabetes mellitus) ([facility]) Assessment & Plan Endocrinology following and currently [...] 33 minutes which was spent performing a nvxr-sv-omqu encounter and personally completing the provider-level activities [...] treatment team and contact the PT or ASSEMBLING MACHINE OPERATOR currently assigned to this patient. If a physical therapy clinician is not assigned to this patient, please call [phone]. 03/19/23 0944 PT Last Visit Session Type [...] and improve ROM * Luis Daniel Hanna, STEEL DIVISION SUPERVISOR - 03/18/2023 1:03 PM CDT Daily Progress Note Division of Hospital Medicine Name: Rene Hyatt : 1980 Today's Date: March 18, 2023 Age: 42 y.o. male Admission: 03/06/2023 Bed: [id number] LOS: 12 days Subjective Chief complaint: Perineal abscess Interval History Patient is alert and awake on eval this AM. He has no specific complaint or question. Chair has been delivered, lost charge card clerk assisting with acquisition of boot. Objective Scheduled Meds PRN Meds Infusions acetaminophen, 1,000 mg, oral, Q6H ASTON ampicillin-sulbactam, 3 g, intravenous, Q6H ASTON atorvastatin, 20 mg, oral, Nightly calcium carbonate, 500 mg of elemental calcium, oral, BID enoxaparin, 40 mg, subcutaneous, Q12H ASOTN ergocalciferol, 50,000 Units, oral, Once per day [...] of urinal in bed Class 3 obesity ([facility]) Assessment & Plan Complicates all aspects of [...] bleeding -CTM Hgb Diabetic foot ulcer (CMS/HCC) ([facility]) Assessment & Plan Wound to planter 1st metatarsal head. S/p debridement with podiatry 03/07, significant depth but negative probe to bone. L foot XR with no OM - continue daily dressing changes - WBAT in heel strike shoe per PT - follow up in wound center at discharge - diabetic shoes with custom offloading inserts for senior care sheogear - Heel strike shoe is causing [...] with PCP T1DM (type 1 diabetes mellitus) ([facility]) Assessment & Plan Endocrinology following and currently [...] Age: 42 y.o. male Admission: 03/06/2023 Bed: [id number] LOS: 11 days Subjective Chief complaint: Perineal [...] of urinal in bed Class 3 obesity ([facility]) Assessment & Plan Complicates all aspects of [...] of bleeding -CTM Hgb Diabetic foot ulcer ([facility]/HCC) ([facility]) Assessment & Plan Wound to planter 1st metatarsal head. S/p debridement with podiatry 03/07, significant depth but negative probe to bone. L foot XR with no OM - continue daily dressing changes - WBAT in heel strike shoe per PT - follow up in wound center at discharge - diabetic shoes with custom offloading inserts for senior care sheogear - Heel strike shoe is causing the patient difficulty walking, collaborating with PT, nursing, DM re: solutions Vitamin D deficiency Assessment & Plan Undetectable Vit D Level - continue vit d 50k international units twice weekly and calcium supplementation for x3 months. - plan for vit d 2k daily after 50k loading phase - f/u with PCP T1DM (type 1 diabetes mellitus) ([facility]) Assessment & Plan Endocrinology following and currently [...] treatment team and contact the PT or ASSEMBLING MACHINE OPERATOR currently assigned to this patient. If a physical therapy clinician is not assigned to this patient, please call [phone]. 03/17/23 0907 PT Last Visit Session Type [...] ROM * Luis Daniel Hanna NP - 03/16/2023 1:10 PM CDT Daily Progress Note Division of Hospital Medicine Name: Rene Hyatt : 1980 Today's Date: March 16, 2023 Age: 42 y.o. male Admission: 03/06/2023 Bed: [id number] LOS: 10 days Subjective Chief complaint: Perineal [...] bleeding -CTM Hgb Diabetic foot ulcer (CMS/HCC) ([facility]) Assessment & Plan Wound to planter 1st metatarsal head. S/p debridement with podiatry 03/07, significant depth but negative probe to bone. L foot XR with no OM - continue daily dressing changes - WBAT in heel strike shoe per PT - follow up in wound center at discharge - diabetic shoes with custom offloading inserts for long term care pharmacist sheogear Vitamin D deficiency Assessment & Plan Undetectable Vit D Level - continue vit d 50k international units twice weekly and calcium supplementation for x3 months. - plan for vit d 2k daily after 50k loading phase - f/u with PCP Diabetes mellitus, new onset (CMS/HCC) ([facility]) Assessment & Plan Endocrinology following and currently [...] Age: 42 y.o. male Admission: 03/06/2023 Bed: [place] [id number] LOS: 9 days Subjective Chief complaint: Perineal [...] Scrotal abscess Assessment & Plan Presented to [facility] ED with scrotal pain and swelling [...] daily (03/15-) Diabetes mellitus, new onset (CMS/HCC) ([facility]) Assessment & Plan Endocrinology following and currently on basal bolus regimen - cont lantus 20, lispro 10 per endocrinology recs - continue atorvastatin 20 mg daily - patient seen by DM educator Anemia Assessment & Plan Hgb 11.2 and BL 10-11. No signs of bleeding -CTM Hgb Diabetic foot ulcer (CMS/HCC) ([facility]) Assessment & Plan Woun d to planter 1st metatarsal head. S/p debridement with podiatry 03/07, significant depth but negative probe to bone. L foot XR with no OM - continue daily dressing changes - WBAT in heel strike shoe per PT - follow up in wound center at discharge - diabetic shoes with custom offloading inserts for long term care pharmacist sheogear Vitamin D deficiency Assessment & Plan [...] None Prior Function Prior Function Level of [place]: Independent with ADLs, Independent functional transfers, Independent [...] name and address after me: Marcos Mcpherson [address] [place] [address] Without looking at the clock, tell me [...] not assigned to this patient, please call [phone]. * Luis Alfredo Donaldson MD - 03/14/2023 [...] ssg Neuro: Alert and oriented Assessment Rene yHatt is a 42 y.o. male s/p Procedure(s): [...] Age: 42 y.o. male Admission: 03/06/2023 Bed: [place] [id number] LOS: 8 days Subjective Chief complaint: Perineal [...] continue Unasyn Diabetes mellitus, new onset (CMS/HCC) ([facility]) Assessment & Plan Endocrinology following and currently on basal bolus regimen - cont lantus 20, lispro 10 per endocrinology recs - continue atorvastatin 20 mg daily - patient seen by DM educator Anemia Assessment & Plan Hgb 11.2 and BL 10-11. No signs of bleeding -CTM Hgb Diabetic foot ulcer (CMS/HCC) ([facility]) Assessment & Plan S/p debridement with podiatry. 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 male Admission: 03/06/2023 Bed: [id number] LOS: 7 days Subjective Chief complaint: Perineal [...] Vitals: 03/12/23 1711 03/12/23 1811 03/12/23 2040 03/13/23525 BP: 152/72 153/74 122/58 138/65 BP Location: [...] Age: 42 y.o. male Admission: 03/06/2023 Bed: [id number] LOS: 6 days Subjective Chief complaint: Perineal [...] Carbohydrate PT/OT Dispo Rec : PT Recommendation/Plan: Correction Facility / Supplementary Attestation The total encounter time on this service date was 45 minutes which was spent performing a yovh-jj-zifw encounter and personally completing the provider-level activities [...] on KARLA. Wound good for closure from [facility] perspective. Dagoberto Paredse MD Resident Physician General Surgery [facility] Inpatient Consult ACCS ED Consult [facility] Outpatient Clinic - option 1 * Adelita [...] Age: 42 y.o. male Admission: 03/06/2023 Bed: [id number] LOS: 5 days Subjective Chief complaint: Scrotal [...] per urology Diabetes mellitus, new onset (CMS/HCC) ([facility]) Assessment & Plan Endocrinology following and currently [...] Diet PT/OT Dispo Rec : PT Recommendation/Plan: Correction Facility / Supplementary Attestation The total encounter time on this service date was 45 minutes which was spent performing a snyz-yx-hkwo encounter and personally completing the provider-level activities [...] 42 y.o. male Admit Date: 03/06/2023 Bed: [id number] LOS: 4 days Subjective Rene Hyatt is a 42 y.o. male with chief complaint of scrotal abscess. HPI Mr. 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 He was started on clindamycin, cefe/vanc and transferred to [facility] on 03/06for urology evaluation. On presentation, [...] sent. He was on martha, vanc at [facility]. His culture results are as follows: BCx 03/06 with NGTD Scrotal Abscess cx 03/06: abundant strep anginosus, mixed organisms Scrotal Tissue cx 03/06: moderate strep anginosus, mixed organisms Scrotal Abscess cx 03/10: abundant GPCs Scrotal tissue cx 10/: moderate GPCs ID was consulted for antibiotic [...] on File Prior to Encounter Medication Sig uhdvnjrijaynq-qgwcmku-jrastvsw (EXCEDRIN MIGRAINE) 250-250-65 mg per tablet Take [...] 6 per endocrinology recs -start atorva 20 -natural resources extension educator consulted * Scrotal abscess Assessment & [...] Scrotal abscess Surgical ICU Daily Progress Team: [facility] 2 AM Subjective Patient is a 42 [...] Q6H ASTON ampicillin-sulbactam, 3 g, intravenous, Q6H [facility] calcium carbonate, 400 mg of elemental calcium, [...] ENDO: #Diabetes POA, new diagnosis c/b DKA -natural resources extension educator consulted -endocrine diabetes consulted -SSI, mealtime [...] plan with the patient's team and other medical/marketing operations consultant staff. This time was in addition [...] Admission Medication Sig Dispense Refill Last Dose yuovjcfbcdiaq-hwexuaq-fugabgrz (EXCEDRIN MIGRAINE) 250-250-65 mg per tablet Take [...] 03/09/23 0603/09/23 07 - 03/10/23 0659 Shift 5117-2261 24 Hour Total 2783-7633 3966-1045 24 Hour Total INTAKE P.O. 480 960 I.V.(mL/kg) 222(1.4) IV Piggyback 100 1004 633 633 Shift Total(mL/kg) 580(3.6) 2186(13.5) 633(3.9) 633(3.9) OUTPUT Urine(mL/kg/hr) 1025 1875 1325(0.7) 1325 Emesis/NG output 100 100 Drains 400 400 Stool 250 250 Shift Total(mL/kg) 1275(7.9) 2125(13.1) 1725(10.7) 100(0.6) 1825(11.3) NET -695 99 -1092 -100 -1192 Weight (kg) 161.7 161.7 [...] -BMI 39. 7 -consult nutrition and DM ham stringer ENDO: #Hyperglycemia:POA #DKA: POA -AGMA on admission, [...] diabetic shoes with custom offloading inserts for long term care pharmacist sheogear 03/07:Duplex imaging of the bilateral lower extremity point [place] arteries reveals patent vessels with no flow limiting lesions identified Culture Results: No data to display Lab Results Component Value Date MICROBIOLOGY (.) 03/06/2023 Preliminary Report: Moderate Streptococcus anginosus For susceptibility results, refer to accession number [id number] on the scrotum tissue culture from 03/06/2023 Few Mixed aerobic and anaerobic microorganisms MICROBIOLOGY (.) 03/06/2023 Preliminary Report: Moderate Streptococcus anginosus Few Mixed aerobic and anaerobic microorganisms MICROBIOLOGY (.) 03/06/2023 Preliminary Report: Abundant Streptococcus anginosus For susceptibility results, refer to accession number [id number] on the scrotum tissue culture from 03/06/2023 [...] plan with the patient's team and other medical/marketing operations consultant staff. This time was in addition to and separate from care provided by other practitioners on this day of service. * Marcos Browne NP - 03/09/2023 7:52 AM CDTAssociated Order(s): Critical Care Post-Procedure Diagnose(s): Scrotal abscess Surgical ICU Daily Progress Team: [facility] 2 AM Subjective Patient is a 42 [...] consistent carb Bowel regimen: Doc/Senna #Nausea/vomiting -noted 10/ am -PRN zofran IV 1st line -PRN compazine IV 2nd line ENDO: #Diabetes POA, new diagnosis c/b DKA -natural resources extension educator consulted -endocrine diabetes consulted -SSI, mealtime [...] plan with the patient's team and other medical/marketing operations consultant staff. This time was in addition [...] tablet 1,000 mg, 1,000 mg, oral, Q6H [facility], Matheus Frias PA, 1,000 mg at 03/09/23522 [...] Matheus Frias PA, 50,000 Units at 03/09/23 000 insulin lispro (HumaLOG, ADMELOG) 100 unit/mL injection 0-10 Units, 0-10 Units, subcutaneous, Q4H [facility], Mckayla Iyer NP, 2 Units at 03/09/23 [...] at 03/09/23 0517, 2,250 mg at 03/09/23 05 24hr Min/Max: Temp Min: 36.5 ??C (97.7 [...] Daikins or Vashe - Anticipate transfer to [facility] - Appreciate excellent ICU care James [...] Admission Medication Sig Dispense Refill Last Dose vmrfcgxhuhkvw-lxiudbw-ashfqpky (EXCEDRIN MIGRAINE) 250-250-65 mg per tablet Take [...] Intake/Output: Date 03/07/231899 - 03/08/23 0659 03/08/23 0700 - 03/09/23 0659 Shift 1863-8187 24 Hour Total 4724-8190 1340-1410 24 Hour Total INTAKE P.O. 1000 1000 [...] -BMI 39. 7 -consult nutrition and DM ham stringer ENDO: #Hyperglycemia:POA #DKA: POA -AGMA on admission, [...] shoes with custom offloading inserts for senior care sheogear 03/07:Duplex imaging of the bilateral lower extremity point [place] arteries reveals patent vessels with no flow limiting lesions identified Culture Results: No data to display Lab Results Component Value Date MICROBIOLOGY (.) 03/06/2023 Preliminary Report: Moderate Streptococcus anginosus For susceptibility results, refer to accession number [id number] on the scrotum tissue culture from 03/06/2023 MICROBIOLOGY (.) 03/06/2023 Preliminary Report: Moderate Streptococcus anginosus Susceptibility testing results to follow. Few Mixed microorganisms. MICROBIOLOGY (.) 03/06/2023 Preliminary Report: Moderate Streptococcus anginosus For susceptibility results, refer to accession number [id number] on the scrotum tissue culture from 03/06/2023 [...] plan with the patient's team and other medical/marketing operations consultant staff. 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 Pt is independent at [...] Pain Location: Scrotum Pain Interventions: RN Notified (ARYAN carter notified) Cognition Cognition Arousal/Alertness: Alert, Appropriate responses [...] treatment team and contact the PT or ASSEMBLING MACHINE OPERATOR currently assigned to this patient. If a physical therapy clinician is not assigned to this patient, please call [phone]. * Mckayla Iyer NP - 03/08/2023 8:55 AM CDTAssociated Order(s): Critical Care Post-Procedure Diagnose(s): Scrotal abscess Surgical ICU Daily Progress Team: [facility] 2 AM Subjective Patient is a 42 y.o. male admitted on 03/06/2023 10:24 AM with chief complaint of DKA. Interval History: -Transitioned off insulin gtt to 8u NPH Z0rdook and SSI -once taking in more nutrition [...] Component Value Date HGBA1C 13.3 (H) 03/06/2023 -natural resources extension educator consulted -endocrine diabetes consulted -transition off insulin gtt this AM, 8u NPH F4crcmh with SSI -once consistently taking in PO [...] Goals of care: FULL CODE [facility]ayla Iyer [facility] Critical Care Performed by: Mckayla Iyer NP [...] plan with the patient's team and other medical/marketing operations consultant staff. 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 Please call the [facility] Inpatient Consult Phone with any questions or concerns regarding this patient. Bijan Villafuerte MD Resident Physician General Surgery [facility] Inpatient Consult [facility] ED Consult [facility] Outpatient Clinic - option 1 Cosigned by [...] and Critical Care Surgery Department of Surgery [facility] * Matheus Frias PA [...] Admission Medication Sig Dispense Refill Last Dose rqfbukmcnehdh-dumgdga-bgdjdsyr (EXCEDRIN MIGRAINE) 250-250-65 mg per tablet Take [...] Hemodynamics: MAP (mmHg): [66-119] 119 Intake/Output: Date 03/06/23 190 - 03/07/23 0659 03/07/23 07 - 03/08/23 0659 Shift 6704-3578 24 Hour Total 3455-2881 4681-1108 24 Hour Total INTAKE P.O. 990 990 [...] -BMI 39. 7 -consult nutrition and DM ham stringer ENDO: #Hyperglycemia:POA #DKA: POA -AGMA on admission, [...] diabetic shoes with custom offloading inserts for long term care pharmacist sheogear 03/07:Duplex imaging of the bilateral lower extremity point [place] arteries reveals patent vessels with no flow [...] plan with the patient's team and other medical/marketing operations consultant staff. 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 OBJECTIVE: Current Facility-Administered Medications: acetaminophen (TYLENOL) tablet 1,000 mg, 1,000 mg, oral, Q6H Rodriguez CLANCY Shawn C., PA, 1,000 mg at 03/07/23 0607 clindamycin (CLEOCIN) 900 mg/50 mL in dextrose 5% (premix) 900 mg, 900 mg, intravenous, Q8H Rodriguez CLANCY Shawn C., ELLA, Stopped at 03/07/23 0609 dextrose gel in packet 15 g, 15 g, oral, Q15 Min PRN OR dextrose (D10W) 10% bolus 250 mL, 250 mL, intravenous, Q15 Min PRN, Matheus Frias, ELLA docusate sodium (COLACE) capsule 100 mg, 100 [...] Scrotal abscess Surgical ICU Daily Progress Team: [facility] 2 AM Subjective Patient is a 42 [...] continue gtt post op until gap closed -natural resources extension educator and endocrine diabetes consulted -send c-peptide [...] Component Value Date HGBA1C 13.3 (H) 03/06/2023 -natural resources extension educator consulted -endocrine diabetes consulted RENAL: Cr [...] Goals of care: FULL CODE Mckayla Iyer [facility] Critical Care Performed by: Mckayla Iyer [...] plan with the ICU team and other medical/marketing operations consultant staff, making frequent assessments and decisions [...] 42 y.o. male who presented to the [facility] ED with perineal/scrotal pain and swelling and a foot ulcer. CT there showed a perineal fluid collection/abscess with gas in the collection and he was transferred to [place] for surgical care. Prior to coming to [...] Current Outpatient Medications Medication Sig Dispense Refill khmdbzvwspprx-nfdbbbk-mwnmwinh (EXCEDRIN MIGRAINE) 250-250-65 mg per tablet Take [...] Wander García M.D. RB: SALLY Report ID: [id number] Reading Location: [id number] Assessment and Plan: Rene Hyatt is a [...] hesitate to contact us by paging the land acquisition specialist urology resident. Jamari Whitfield MD 03/06/23 Urology [...] Admission Medication Sig Dispense Refill Last Dose ujjyxcignhssw-ajrgjnr-nvjsacyw (EXCEDRIN MIGRAINE) 250-250-65 mg per tablet Take [...] Hemodynamics: MAP (mmHg): [86-92] 92 Intake/Output: Date 03/05/23 190 - 03/06/23 0659(Not Admitted) 03/06/23 0700 - 03/07/23 0659 Shift 5948-5582 24 Hour Total 1755-1737 6006-2868 24 Hour Total INTAKE I.V. 1600(10.3) 1600(10.3) [...] See wound note and podiatry c/s Access: [facility] Lab/Radiology/Diagnostic Review: Laboratory review: Lab results in [...] -BMI 39. 7 -consult nutrition and DM ham stringer ENDO: #Hyperglycemia:POA #DKA: POA -AGMA on admission, +2 ketones in urine, BG > 300 -03/06: Beta hydroxybutyrate +0.9 after resuscitation and on gtt #New onset Diabetes: -HbA1C 13.3 -c/s endocrinology -c/s to DM education -insulin gtt : #Soft Tissue Skin infection: POA #Yamial's Gangrene:POA -urology/ACCS following RENAL: Lab Results Component [...] plan with the ICU team and other medical/marketing operations consultant staff, making frequent assessments and decisions [...] given his presentation, who was transferred from [facility] for scrotal swelling, scrotal abscess and possible [...] BUN SERUM mg/dL 17 CREATININE mg/dL 0.83 DCZ-WTJ-LNJQVFK mL/min/1.73 m2 >90 CALCIUM mg/dL 8.5 Recent [...] Carbohydrate Diet effective now Question Answer Comment ([facility]) Diet type Restricted Diabetic: Consistent Carbohydrate [...] Registered Dietitian. Additional resources available from the [place] [employer] can be found at www.diabetes.org/nutrition [...] Registered Dietitian. Additional resources available from the [place] [employer] can be found at www.diabetes.org/nutrition Marina Royal MS, RD, [facility], LD Cell * Marina Royla RD - 03/16/2023 2:22 PM CDT NUTRITION ASSESSMENT Nutrition Status: Patient appears adequately nourished at this time. REASON FOR ASSESSMENT: Consult/Referral - Diet Education Encounter Date: 03/16/23 2:22 PM Admission Date: 03/06/2023 LOS: 10 days HPI: Pt is a 42-year-old male previously healthy, probably diabetic given his presentation, who was transferred from [facility] for scrotal swelling, scrotal abscess and possible [...] petrolatum-mineral oiL Recent Labs Lab Units 03/15/23 1938 03/11/23 2231 03/10/23 2222 03/09/23 2142 SODIUM mmol/L 138 < > 139 137 POTASSIUM PLASMA mmol/L 4.2 < > 4.1 4.2 CHLORIDE mmol/L 102 < > 101 101 CO2 mmol/L 28 < > 31 28 BUN SERUM mg/dL 9 < > 12 11 CREATININE mg/dL 0.83 < > 0.68* 0.56* BIE-KNL-UISVLVX mL/min/1.73 m2 >90 < > >90 >90 [...] Carbohydrate Diet effective now Question Answer Comment ([facility]) Diet type Restricted Diabetic: Consistent Carbohydrate [...] Registered Dietitian. Additional resources available from the [place] [employer] can be found at www.diabetes.org/nutrition [...] Registered Dietitian. Additional resources available from the [place] [employer] can be found at www.diabetes.org/nutrition Marina Royal MS, JR, NICHOLAS, LD Cell * Valerie Carrion RN - [...] [facility] Wound Ostomy Team General W/O number: [phone] * Marina Royal RD - 03/11/2023 10:16 [...] RD contact information provided. Marina Royal MS, JR, CNSC, LD Cell * Valerie Carrion RN [...] [facility] Wound Ostomy Team General W/O number: [phone] * Kim Byrne RD - 03/09/2023 9:31 AM CDTAssociated Order(s): IP CONSULT TO NUTRITION SERVICES NUTRITION ASSESSMENT Nutrition Status: Patient appears adequately nourished at this time. REASON FOR ASSESSMENT: Consult/Referral - Diet Education Encounter Date: 03/09/23 9:32 AM Admission Date: 03/06/2023 LOS: 3 days HPI: Pt is a 42-year-old male previously healthy, probably diabetic given his presentation, who was transferred from [facility] for scrotal swelling, scrotal abscess and possible [...] CREATININE mg/dL 0.60* 0.73* See Comment 0.77* MOS-TPE-WNMVQUG mL/min/1.73 m2 >90 >90 See Comment >90 [...] tray Diet effective now Question Answer Comment ([facility]) Diet type Restricted Diabetic: Consistent Carbohydrate Other Services: No juice on tray 03/08/23 0854 Allergies: Reviewed. IMPRESSION: Saw pt for consult regarding diabetes education. Pt reports a good appetite ASSEMBLING MACHINE OPERATOR. Appete has been down today and pt [...] Registered Dietitian. Additional resources available from the [place] [employer] can be found at www.diabetes.org/nutrition [...] worsened over time and presented toED at [place]. In addition he also reported non healing [...] surgical history on file. HOME MEDICATIONS : lmkaklfzfnjqe-epoowwb-dczituqx (EXCEDRIN MIGRAINE) 250-250-65 mg per tablet aspirin 325 mg tablet doxycycline 100 mg capsule traMADoL (ULTRAM) 50 mg tablet Current Facility-Administered Medications Ordered in [place] [facility] Medication Dose Route Frequency Provider Last Rate [...] syringe 40 mg 40 mg subcutaneous Q12H [facility] Javier Starks NP 40 mg at 03/09/23 0840 ergocalciferol (VITAMIN D) capsule 50,000 Units 50,000 Units oral Weekly Matheus Frias PA 50,000 Units at 03/09/23 0008 insulin lispro (HumaLOG, ADMELOG) 100 unit/mL injection 0-10 Units 0-10 Units subcutaneous Q4H [facility] Mckayla Iyer NP 2 Units at 03/09/23 [...] (premix) 2,000 mg 2,000 mg intravenous Q8H [facility] Matheus Frias PA Stopped at 03/09/23 0555 [...] PA Stopped at 03/09/23 0717 No current [facility]-ordered outpatient medications on file. Anti-infectives (From admission, [...] For susceptibility results, refer to accession number [id number] on the scrotum tissue culture from 03/06/2023 MICROBIOLOGY (.) 03/06/2023 Preliminary Report: Moderate Streptococcus anginosus Susceptibility testing results to follow. Few Mixed microorganisms. MICROBIOLOGY (.) 03/06/2023 Preliminary Report: Moderate Streptococcus anginosus For susceptibility results, refer to accession number [id number] on the scrotum tissue culture from 03/06/2023 [...] Virologic Testing: HIV Screen:No results found for: [id number] CD4:No results found for: CD4ABS , CD4PCT Common Virologic Results: No results found for: HFQ4DLH , CD4ABS , CD4PCT , NUCLEOSRT , [...] PM CDTAssociated Order(s): IP CONSULT TO PODIATRY [facility] Subjective: Patient [...] mg, oral, BID, 100 mg at 03/07/23 112 OR docusate(COLACE) 10 mg/mL oral liquid 100 [...] Measurement Value Units Measurement Value Units Rt WELL SHOOTER Dst PSV 93 cm/s Lt WELL SHOOTER Dst PSV 154 cm/s Rt Profunda Prx [...] Right Lower Left Lower - Findings: Performing Air Quality Consultant: Anca Alexis RVT ([place]). Right Common Femoral: [...] Duplex imaging of the bilateral lower extremity point [place] ir[place] arteries reveals patent vessels with no flow [...] mmHg Lt Brachial Pressure 110 mmHg Rt ASSEMBLING MACHINE OPERATOR Pressure 162 mmHg Lt ASSEMBLING MACHINE OPERATOR Pressure 158 mmHg Rt DPA Pressure 159 [...] Right - Left - - Findings: Performing Air Quality Consultant: Anca Alexis RVT ([place]). Bilateral All Levels [...] diabetic shoes with custom offloading inserts for long term care pharmacist sheogear - Discussed proper pedal care in [...] discharge. Moody Saab DPM Voice recognition software [email or web address] was used to dictate/transcribe this document. Food General Manager variances may occur. Despite proofreading, typographical, grammatical and syntax errors may occur. * Toby Teresa MD - 03/07/2023 1:01 PM CDT Endocrinology & Diabetes Consult Note Patient: Rene Hyatt, 42 y.o. male (: 1980) Room: [place] [address]/[id number] ( ) LOS: 1 Consult Question: DKA [...] , PTH , 25HYDROVITD , CPEPTIDE , SDM80BV , IA2AB Lab Results Component Value Date [...] (Diabetes Center Scheduling: ) - recommend asking consumer educator to assess patient inpatient -- Toby [...] does not have insurance and resides in [place] - may need to establish medicine clinic here, where medications would be subsidized, consider Basal/Bolus ( potentially 70/30 Reli-on [employer] pens) and metformin. Social Work aware. 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 male who presented to the [facility] ED with perineal/scrotal pain and swelling and a foot ulcer. CT there showed a perineal fluid collection/abscess with gas in the collection and he was transferred to [place] for surgical care. Prior to coming to [...] Current Outpatient Medications Medication Sig Dispense Refill scwyqwxzgkdzn-ltllsdp-vpvxdatp (EXCEDRIN MIGRAINE) 250-250-65 mg per tablet Take [...] Wander García M.D. RB: SALLY Report ID: [id number] Reading Location: [id number] Assessment and Plan: Rene Hyatt is a [...] hesitate to contact us by paging the land acquisition specialist urology resident. Jamair Whitfield MD 03/06/23 Urology Resident Cosigned by [...] from the original note were not included. [facility] Acute Care Surgery Consult Reason [...] follow. Staffed with Dr. Alexander Cloud at [facility]. Hans Doyle MD Department of General Surgery [facility] in [facility] Subjective HPI: Rene Hyatt is a [...] prompting his presentation to the ED at [facility]. A CT abdomen/pelvis was obtained there which [...] hospital. The patient has been transferred to [facility] for possible intervention. Upon assessment of the patient, his tissue infection appears largely confined to his scrotum. Of note, the patient has not been previously diagnosed with diabetes until today. He has non-healing left foot wounds, some of which have been present for several years. A left foot x-ray performed at [facility] did not have evidence of osteomyelitis. History [...] Javier Owusu M.D. AG: JUSTINA Report ID: [id number] Reading Location: [id number] XR Chest 1 Vw Portable EXAM DESCRIPTION: [...] Wander García M.D. RB: SALLY Report ID: [id number] Reading Location: [id number] CT Abdomen Pelvis W Contrast EXAM DESCRIPTION: [...] signed by Wander García M.D. RB: SALLY Garza: 03/06/2023 6:46 AM Report ID: [id number] Reading Location: [id number] Cosigned by Alexander Cloud MD at 03/09/2023 [...] Perineum Date First Assessed/Time First Assessed: 03/06/23 7118 Location: Perineum Site Assessment Slough/fibrin Franchesca-wound Assessment [...] site rotation Consults Made Dietitian Consults Recommended Blast Furnace Blower Discharge Recommendations Insulin Pen Humalog Kwik Pen (pkg of 5);Lantus Solostar Pre-filled Pen (pkg of 5) Non-Insulin Pen Trulicity Pen Pen Showell Ultra fine 5 mm Glucometer (Glucocard shine meter was provided.) Test Strips (glucocard shine strips) Lancets Lancets Blood Glucose Testing Regimen 4 times per day (premeals, at bedtime, and prn) Diabetes/Education Follow Up Primary Care Provider;Blast Furnace Blower;Outpatient Diabetes Education Additional Recommendations Home Health followup [...] site rotation Consults Made Dietitian Consults Recommended Blast Furnace Blower Discharge Recommendations Additional Recommendations Home Health followup [...] is ready to be see again. Jacques STEEL DIVISION SUPERVISOR and Naveen STEEL DIVISION SUPERVISOR aware. If patient is discharged prior to seeing natural resources extension educator, please have nurse provide diabetes education [...] site rotation Consults Made Dietitian Consults Recommended Blast Furnace Blower Discharge Recommendations Insulin Pen Humalog Kwik Pen (pkg of 5);Lantus Solostar Pre-filled Pen (pkg of 5) Pen Showell Ultra fine 5 mm Glucometer (Provided a [...] site rotation Consults Made Dietitian Consults Recommended Blast Furnace Blower Discharge Recommendations Insulin Pen (TBD) Non-Insulin Pen (TBD) Blood Glucose Testing Regimen (TBD) Diabetes/Education Follow Up (TBD) Met with patient. Patient has not received his glucometer supplies yet. Patient's discharge date and medication regimen undetermined at this time. Per patient, he is going to OR tomorrow. consumer educator will return for additional teaching on Thursday (03/12/2023). * Rigo Doyle RN - 03/11/2023 9:21 AM CDT 03/11/23 0920 Pre-Education Assessment Time In 0920 Home Supplies Yes needs assistance (Currently, patient has no medical insurance.) Inpatient Recommendations RN to practice with patient Injections;Fingersticks RN to reinforce with patient Consistent carb diet;Carb counting;Insulin dose calculation;Insulin injection site rotation Consults Made Dietitian Consults Recommended Blast Furnace Blower Patient's discharge medication regimen undetermined at this [...] given his presentation, who was transferred from [facility] for scrotal swelling, scrotal abscess and possible [...] given his presentation, who was transferred from [facility] for scrotal swelling, 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 By: Anil Birmingham MD Time: 03/06 8774 Comment: Urology examined patient, assessment is that [...] floor. By: Anil Birmingham MD Time: 03/06 6903 Comment: SOCIAL: patient's mother is paraplegic, patient is worried about her and does not have a cellphone. I called her and updated her on her son's situation, stating that he will require OR. She is worried and would like us to update her on any advancement that occurs, especially post-op. 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 First noted perineal discomfort progressed to scrotal swelling + pain over last two weeks. Presented to [facility] this morning with WBC 17.3 elevated CRP/ESR, glucose 300s (not diagnosed diabetic), CT concerning for scrotal abscess vs NSTI. Start on vanc/cefe/clinda and received 3L IVF prior to transfer. Here AOx3 c/o scrotal pain, also noted deep ulcers x2 to L foot which probe to bone (plain films obtained at [facility]). Will provide pain control, continue abx, discuss [...] RN - 03/06/2023 10:24 AM CDT Bed: [facility] Expected date: 03/06/23 Expected time: 7:56 AM Means of arrival: Ambulance Comments: Mary Rogers RN 03/06/23 1024 documented in this encounter Miscellaneous Notes * Plan of Care - Kateryna Martinez LCSW - 03/25/2023 5:01 PM CDT SW received call from hospital nursing broommaking supervisor, H[facility] regarding pt. It was SW [...] medical needs are met. DIPIKA has informed secondary school teacher SW of pt's return and will collaborate with CCSW in the morning. CÉSAR Levi, GROUND SCHOOL INSTRUCTOR * Plan of Care - Clara Carrizales, ARYAN - 03/25/2023 2:57 PM CDT Goals: Clinical [...] place: Current referrals include: HH SN with [facility] Home Health (P: [phone]) Support following discharge: Friends and [facility] Transportation: [facility] [facility] (P: [phone] Trip: [phone] Time: 3:00 PM on 03/25). Patient's neighbor Kemal will allow EMS crew into home. With permission from patient, CM spoke to Kemal (P: [phone]) who states that he will be available to let the EMS crew into the home. CM provided [employer] [facility] with contact information for Kemal. F/U [...] discharge planning as needed. Please see the [facility] Team for the patient's assigned Green Material Value Added Assessor. * Plan of Care - Eric Wolf, RN - 03/25/2023 9:59 AM CDT Call placed to patient's phone. Interviewed patient via phone and discussed [facility] SURVEYING CREW STAKE RUNNER services. Confirmed homebound status and verified patient is currently not active with any other SUR[employer]YING CREW STAKE [employer]NER. Informed patient that staff will be calling within 48 hours regarding an appointment. * Plan of Care - Eric Wolf, RN - 03/25/2023 8:56 AM CDT I called and spoke with patient's PCP office, Dr. Herb Burden , and received confirmation that they will follow for home health needs and orders per Cyn 03/24 @ 1051. * Consults, Margarita Woods, STEEL DIVISION SUPERVISOR - 03/25/2023 7:21 AM CDT Endocrinology & Diabetes Progress Note Patient: Rene Hyatt, 42 y.o. male (: 1980) Room: [place] [address]/[id number] ( ) LOS: 19 Rene Hyatt is [...] 25HYDROVITD <6 (L) 03/08/2023 CPEPTIDE 2.24 03/08/2023 [id number] 0.31 (H) 03/09/2023 Lab Results Component Value [...] Hodge NP Endocrinology, Metabolism, & Lipid Research [phone] Contact Info: New Consults: [phone]) General Endocrine (Non-Diabetes): [phone] (Check 'Treatment Team' assignment for Diabetes 1 vs 2 vs 3) Diabetes After-Hours & Weekends: Diabetes Fellow [phone] or [phone] * Plan of Care - Yancy Stephenson [...] & referrals made/in place: Current referrals include: [facility] with [facility] Home Health (P: [phone]) Support following discharge: Friends and [facility] Transportation: [employer] (P: [phone] Trip: [phone] Time: 11:30 AM on 03/25). Patient's neighbor Kemal will allow EMS crew into home. With permission from patient, CYNTHIA spoke to Kemal (P: [phone]) who states that he will be available tomorrow to let the EMS crew into the home. CM provided [facility] with contact information for Kemal. F/U [...] discharge planning as needed. Please see the [facility] Team for the patient's assigned Green Material Value Added Assessor. * Plan of Care - Tom Diane LCSW - 03/24/2023 12:47 PM CDT SW contacted to speak to this patient about [place] field crop farmworker services. SW provided with written information about the program and the closest state office near his home- in [place], [place]. Sw also spoke briefly to the [...] Wolf, ARYAN - 03/24/2023 10:28 AM CDT [facility] Home Health consult received for SN/ Wound Care services. [facility] Home Care agency accepted patientwith projected start of care 03/27/2023 with completed referral and discharge. Graham MARIE, notified. * Plan of Care - Fannie Celaya - 03/24/2023 9:57 AM CDT CRC scheduled follow up appointment for patient with PCP. Information is on AVS & below: [facility]: [facility] Date of Appt: 04.01.2023 Time of Appt: 10:40 AM Provider: Bertram Celaya [facility] Community Party Plan Sales Unit Advisor [phone] * Consults, Subsequent - Mack Frazier MD PhD - 03/24/2023 9:43 AM CDT Endocrinology & Diabetes Progress Note Patient: Rene Hyatt, 42 y.o. male (: 1980) Room: [place] [address] [address] ( ) LOS: 18 Rene Hyatt is [...] 25HYDROVITD <6 (L) 03/08/2023 CPEPTIDE 2.24 03/08/2023 [id number] 0.31 (H) 03/09/2023 Lab Results Component Value [...] MD PhD Endocrinology, Metabolism, & Lipid Research [phone] Contact Info: New Consults: [phone]) General Endocrine (Non-Diabetes): [phone] (Check 'Treatment Team' assignment for Diabetes 1 vs 2 vs 3) Diabetes After-Hours & Weekends: Diabetes Fellow [phone] or [phone] * Plan of Care - Annamarie Giron [...] Wolf RN - 03/23/2023 3:27 PM CDT [facility] IRIS received consult. [facility] is unable to staff patient without an established PCP. Anabel MARIE., notified. CYNTHIA to outsource for home health services. * Consults, Subsequent - Mack Frazier MD PhD - 03/23/2023 9:53 AM CDT Endocrinology & Diabetes Progress Note Patient: Rene Hyatt, 42 y.o. male (: 1980) Room: [place] [address] [address] ( ) LOS: 17 Rene Hyatt is [...] 25HYDROVITD <6 (L) 03/08/2023 CPEPTIDE 2.24 03/08/2023 [id number] 0.31 (H) 03/09/2023 Lab Results Component Value [...] MD PhD Endocrinology, Metabolism, & Lipid Research [phone] Contact Info: New Consults: [phone]) General Endocrine (Non-Diabetes): [phone] (Check 'Treatment Team' assignment for Diabetes 1 vs 2 vs 3) Diabetes After-Hours & Weekends: Diabetes Fellow [phone] or [phone] * Plan of Care - Marcos Link [...] Hyatt, 42 y.o. male (: 1980) Room: [place] [address] [address] ( ) LOS: 14 Rene Hyatt is [...] 25HYDROVITD <6 (L) 03/08/2023 CPEPTIDE 2.24 03/08/2023 [id number] 0.31 (H) 03/09/2023 Lab Results Component Value [...] vitamin D undetectable - Would recommend starting 60021NV increase to twice weekly x2 months. Would [...] Field MD Endocrinology, Metabolism, & Lipid Research [phone] Contact Info: New Consults: [phone] General Endocrine (Non-Diabetes): [phone] (Check 'Treatment Team' assignment for Diabetes 1 vs 2 vs 3) Diabetes After-Hours & Weekends: Diabetes Fellow [phone] or [phone] * Plan of Care - Elysia Clarke [...] Hyatt, 42 y.o. male (: 1980) Room: [place] [address] [address] ( ) LOS: 13 Rene Hyatt is [...] 25HYDROVITD <6 (L) 03/08/2023 CPEPTIDE 2.24 03/08/2023 [id number] 0.31 (H) 03/09/2023 Lab Results Component Value [...] vitamin D undetectable - Would recommend starting 86861KH increase to twice weekly x2 months. Would [...] & Lipid Research Contact Info: New Consults: [phone] General Endocrine (Non-Diabetes): [phone] (Check 'Treatment Team' assignment for Diabetes 1 vs 2 vs 3) Diabetes After-Hours & Weekends: Diabetes Fellow [phone] or [phone] * Plan of Care - Rachel Cosme [...] PM CDT At patient's request, SW contacted [facility] animal services ([phone]) regarding checking in on the cats at the home. SW was advised that in this case, PD would need to go to the home to check on them ([facility] not [facility] room for cats at this time). SW relayed this information to patient and provided non-emergency phone number for [place] PD. Patient reported that hedid not want to do anything without his mother's permission due to it being her home. SW was able to speak with patient's mother, Savannah, via her RN at [facility]. Savannah gave permission for SW/patient to contact PD and request a visit to the home. DIPIKA contacted [facility] PD non-emergency after hours line ([phone]) and requested non-urgent visit to the home to check on the cats. DIPIKA was connected with an Officer Marisa, who reported that a city sewer and inspector and an officer had been at the home this morning and had spoken with patient's neighbor(Kemal Worrell @ [phone]). Kemal has been feeding the cats since patient's/Savannah's hospitalizations. Officer Marisa advised that patient/Savannah would be notified of the results from the city inspection, either by the sewer and inspector or by Alloy Weigher Phil. DIPIKA provided RN station phone number [...] * Plan of Care - Angelika Plasencia, RN - 03/18/2023 1:15 PM CDT Goals: [...] in home environment Outcome: Progressing * Consults, Margarita Woods NP - 03/18/2023 11:18 AM CDT Endocrinology & Diabetes Progress Note Patient: Rene Hyatt, 42 y.o. male (: 1980) Room: [place] [address] [address] ( ) LOS: 12 Rene Hyatt is [...] 2122 03/17/23 1824 03/17/23 1247 03/17/23 0909 10/02/29 205603/16/23204603/16/23 1821 03/16/23 1419 GLUCOSE mg/dL -- 163 [...] 25HYDROVITD <6 (L) 03/08/2023 CPEPTIDE 2.24 03/08/2023 [id number] 0.31 (H) 03/09/2023 Lab Results Component Value [...] vitamin D undetectable - Would recommend starting 49784MU increase to twice weekly x2 months. Would [...] & Lipid Research Contact Info: New Consults: [phone]) General Endocrine (Non-Diabetes): [phone] (Check 'Treatment Team' assignment for Diabetes 1 vs 2 vs 3) Diabetes After-Hours & Weekends: Diabetes Fellow [phone] or [phone] * Plan of Care - Nan Tamayo [...] - 03/17/2023 9:19 AM CDT SW contacted [facility] ([phone]) and requested that staff provide patient's room [...] CM will send updated therapy notes to [facility] when available, [facility] to review for possible Medicaid pending admission. [...] discharge needs arise please contact the covering family preservation caseworker. * Assessment & Plan Note - Luis [...] Hyatt, 42 y.o. male (: 1980) Room: [place] [address] [address] ( ) LOS: 10 Rene Hyatt is [...] vitamin D undetectable - Would recommend starting 50330IW increaes to twice weekly x2 months. Would also maintenance dose of 2000IU daily. ## Discharge Planning Use ???Adult END Diabetes Discharge?? Order Set Glargine (or other basal insulin) + GLP1 agonist if affordable + metformin 500mg BID - If the patient would like to be seen in the Diabetes Center, we will request an outpatient appointment. (Diabetes Center Scheduling: ) - recommend asking consumer educator to assess patient inpatient -- Domonique Blake MD Endocrinology, Metabolism, & Lipid Research Contact Info: New Consults: [phone]) General Endocrine (Non-Diabetes): [phone] (Check 'Treatment Team' assignment for Diabetes 1 vs 2 vs 3) Diabetes After-Hours & Weekends: Diabetes Fellow [phone] or [phone] * Plan of Care - Rona Grant [...] 42 year old male who presented to [facility] ED with a chief complaint of perineal / scrotal pain and swelling and a foot ulcer. CT there showed a perineal fluid collection / abscess with gas in the collection and he was transferred to [place] for surgical care. Scrotal abscess Presented to [facility] ED with scrotal pain and swelling [...] shoes with custom offloading inserts for senior care shoe gear. Home health RN to continue [...] * Plan of Care - Luz Elena Gentile, ARYAN - 03/15/2023 1:42 PM CDT Goals: Clinical [...] Team: General 4 Contact Information: Please see [facility] Treatment Team listing for up-to-date contact [...] For susceptibility results, refer to accession number [id number] on the scrotum abscess culture from 03/10/2023 MICROBIOLOGY (.) 03/10/2023 Preliminary Report: Few Mixed microorganisms. Includes the following: Rare Destiny glabrata Susceptibility testing results to follow. MICROBIOLOGY (.) 03/06/2023 Preliminary Report - Final Review Pending: Moderate Streptococcus anginosus For susceptibility results, refer to accession number [id number] on the scrotum tissue culture from 03/06/2023 Few Mixed aerobic and anaerobic microorganisms MICROBIOLOGY (.) 03/06/2023 Preliminary Report - Final Review Pending: Moderate Streptococcus anginosus Few Mixed aerobic and anaerobic microorganisms MICROBIOLOGY (.) 03/06/2023 Preliminary Report - Final Review Pending: Abundant Streptococcus anginosus For susceptibility results, refer to accession number [id number] on the scrotum tissue culture from 03/06/2023 [...] Team: General 4 Contact Information: Please see [facility] Treatment Team listing for up-to-date contact [...] For susceptibility results, refer to accession number [id number] on the scrotum tissue culture from 03/06/2023 Few Mixed aerobic and anaerobic microorganisms MICROBIOLOGY (.) 03/06/2023 Preliminary Report - Final Review Pending: Moderate Streptococcus anginosus Few Mixed aerobic and anaerobic microorganisms MICROBIOLOGY (.) 03/06/2023 Preliminary Report - Final Review Pending: Abundant Streptococcus anginosus For susceptibility results, refer to accession number [id number] on the scrotum tissue culture from 03/06/2023 [...] Hyatt, 42 y.o. male (: 1980) Room: [place] [address] ( ) LOS: 7 Rene Hyatt is [...] 25HYDROVITD <6 (L) 03/08/2023 CPEPTIDE 2.24 03/08/2023 [id number] 0.33 (H) 03/08/2023 [id number] 0.32 (H) 03/08/2023 Lab Results Component Value [...] vitamin D undetectable - Would recommend starting 56005EZ increaes to twice weekly x2 months. Would also maintenance dose of 2000IU daily. ## Discharge Planning Use ???Adult END Diabetes Discharge?? Order Set Glargine (or other basal insulin) + GLP1 agonist if affordable + metformin 500mg BID - If the patient would like to be seen in the Diabetes Center, we will request an outpatient appointment. (Diabetes Center Scheduling: ) - recommend asking consumer educator to assess patient inpatient -- Alban Butler MD Endocrinology, Metabolism, & Lipid Research Contact Info: New Consults: [phone]) General Endocrine (Non-Diabetes): [phone] (Check 'Treatment Team' assignment for Diabetes 1 vs 2 vs 3) Diabetes After-Hours & Weekends: Diabetes Fellow [phone] or [phone] * Plan of Care - Rosibel Lyons, GROUND SCHOOL INSTRUCTOR - 03/13/2023 11:42 AM CDT SW met [...] with his mother and to check through [facility] as to presence of hotline/investigation. SW called [facility] ([phone]) where mother currently resides. DIPIKA spoke with operator receptionist, who stated that patients do not have phones in their rooms. SW inquired as to whether mother couldcome to the desk to speak with SW (via wheelchair/assist from RN). Metal Cabinet Finisher stated that she didn't know anything about the patient. DIPIKA then attempted to reach mother via phone numbers available, but only one was in service ([phone]) and it was the home phone. DIPIKA called [facility] again and requested to speak with mother's RN. Was informed that RN did not answer the page and welcomed another call from DIPIKA later on. Called [facility] to check on presence of hotline/investigation. SW remained on hold for15 minutes and then disconnected. DIPIKA will make additional attempt at a later time. ADDENDUM 1503 DIPIKA called [facility] ([phone]) and requested to speak with assigned RN [...] been taken to hospital and [place] to [facility]), at which point SW suggested that [...] Team: General 4 Contact Information: Please see [facility] Treatment Team listing for up-to-date contact [...] For susceptibility results, refer to accession number [id number] on the scrotum tissue culture from 03/06/2023 Few Mixed aerobic and anaerobic microorganisms MICROBIOLOGY (.) 03/06/2023 Preliminary Report - Final Review Pending: Moderate Streptococcus anginosus Few Mixed aerobic and anaerobic microorganisms MICROBIOLOGY (.) 03/06/2023 Preliminary Report - Final Review Pending: Abundant Streptococcus anginosus For susceptibility results, refer to accession number [id number] on the scrotum tissue culture from 03/06/2023 [...] Pt is uninsured,(has been seen by [employer] health and safety representative) pt has no PCP. Support:Mother Transportation:TBD F/U appointment:Appointment to be addressed prior to discharge. ADD:03/17/2023 Goal/Plan: Collaboration with patient/family, clinical team to identify discharge needs to assure interventions completed for safe discharge and continuum of care, and that patient/family are agreeable with.; Case Management will follow for planning and referrals as needed. If any further discharge needs arise please contact the covering family preservation caseworker. * Plan of Care - Bethany Saravia [...] Hyatt, 42 y.o. male (: 1980) Room: [place] [address]/[id number] ( ) LOS: 6 Rene Hyatt is [...] 25HYDROVITD <6 (L) 03/08/2023 CPEPTIDE 2.24 03/08/2023 [id number] 0.33 (H) 03/08/2023 [id number] 0.32 (H) 03/08/2023 Lab Results Component Value [...] vitamin D undetectable - Would recommend starting 99937RL weekly x3 months. Then maintenance dose of 2000IU daily. ## Discharge Planning Use ???Adult END Diabetes Discharge?? Order Set Glargine (or other basal insulin) + GLP1 agonist if affordable + metformin 500mg BID - If the patient would like to be seen in the Diabetes Center, we will request an outpatient appointment. (Diabetes Center Scheduling: ) - recommend asking consumer educator to assess patient inpatient -- Sterling Negron MD Endocrinology, Metabolism, & Lipid Research Contact Info: New Consults: [phone]) General Endocrine (Non-Diabetes): [phone] (Check 'Treatment Team' assignment for Diabetes 1 vs 2 vs 3) Diabetes After-Hours & Weekends: Diabetes Fellow [phone] or [phone] Cosigned by Domonique Blake MD at 03/12/2023 [...] of fibrinous exudate weredebrided sharply. A 19 Beninese round drain was placed into the wound [...] MD - Fellow Anesthesiologist: Lisa Carrion MD CROP RESEARCH SCIENTIST: Rona Rendon CRNA; Hope Mays CRNA Student Nurse Coconut Candy Maker: Hannah Thompson Chemical Processor: Vianey Bhakta RN Chemical Processor Relief: Vianey Burch RN Scrub Relief: [...] the Shift: Receive abx * Plan of Elfego - Luz Elena Gentile RN - 03/11/2023 [...] or condition will improve Outcome: Progressing * Marcelle of Rosibel Harrison LCSW - 03/11/2023 4:12 [...] Hyatt, 42 y.o. male (: 1980) Room: [place] [address] ( ) LOS: 5 Rene Hyatt is [...] 25HYDROVITD <6 (L) 03/08/2023 CPEPTIDE 2.24 03/08/2023 DLD61YL 0.33 (H) 03/08/2023 Lab Results Component Value [...] vitamin D undetectable - Would recommend starting 61419LL weekly x3 months. Then maintenance dose of 2000IU daily. ## Discharge Planning Use ???Adult END Diabetes Discharge?? Order Set Glargine (or other basal insulin) + GLP1 agonist if affordable + metformin 500mg BID - If the patient would like to be seen in the Diabetes Center, we will request an outpatient appointment. (Diabetes Center Scheduling: ) - recommend asking consumer educator to assess patient inpatient -- Sterling Negron MD Endocrinology, Metabolism, & Lipid Research Contact Info: New Consults: [phone]) General Endocrine (Non-Diabetes): [phone] (Check 'Treatment Team' assignment for Diabetes 1 vs 2 vs 3) Diabetes After-Hours & Weekends: Diabetes Fellow [phone] or [phone] Cosigned by Domonique Blake MD at 03/11/2023 [...] provided contact information on AVS. Fannie Celaya [facility] Community Party Plan Sales Unit Advisor [phone] * Consults, Subsequent - Subha Butler MD - 03/11/2023 9:02 AM CDT Infectious Disease Subsequent Consult Note Infectious Disease Team: General 4 Contact Information: Please see [facility] Treatment Team listing for up-to-date contact [...] For susceptibility results, refer to accession number [id number] on the scrotum tissue culture from 03/06/2023 Few Mixed aerobic and anaerobic microorganisms MICROBIOLOGY (.) 03/06/2023 Preliminary Report - Final Review Pending: Moderate Streptococcus anginosus Few Mixed aerobic and anaerobic microorganisms MICROBIOLOGY (.) 03/06/2023 Preliminary Report - Final Review Pending: Abundant Streptococcus anginosus For susceptibility results, refer to accession number [id number] on the scrotum tissue culture from 03/06/2023 [...] shoes with custom offloading inserts for senior care sheogear - Heel strike shoe is causing [...] x 2 months and calcium supplementation for [id number]. - plan for vit d 2k daily [...] Hyatt, 42 y.o. male (: 1980) Room: [place] [address] [address] ( ) LOS: 4 Rene Hyatt is a 42 y.o. male with type 2 DM admitted with DKA and endocrine is consulted to help with DKA management. Interval Events & Subjective Patient had no acute events overnight. They are feeling well this afternoon, had some vomiting thismorning. Endorsed poor sleep. Tolerating diet. He reports that he lives in [place] near [facility]. He is uninsured TDD: 33 BG range: 142-215 Diet: Adult Diet Restricted; Consistent Carbohydrate Recent Labs Lab Units 03/10/23 1147 03/10/23 0828 03/09/23 2142 03/09/23 2115 03/09/23 1655 03/09/23 1126 03/09/23 0734 03/09/23 0329 03/09/23 0006 03/08/23 205 GLUCOSE mg/dL -- -- 184 -- -- [...] vitamin D undetectable - Would recommend starting 27541MT weekly x3 months. Then maintenance dose of 2000IU daily. ## Discharge Planning Use ???Adult END Diabetes Discharge?? Order Set - If the patient would like to be seen in the Diabetes Center, we will request an outpatient appointment. (Diabetes Center Scheduling: ) - recommend asking consumer educator to assess patient inpatient -- Sterling Negron MD Endocrinology, Metabolism, & Lipid Research Contact Info: New Consults: [phone]) General Endocrine (Non-Diabetes): [phone] (Check 'Treatment Team' assignment for Diabetes 1 vs 2 vs 3) Diabetes After-Hours & Weekends: Diabetes Fellow [phone] or [phone] Cosigned by Domonique Blake MD at 03/10/2023 [...] called to the hospitalist service. QUESTIONS? Call [phone] ([phone]). * Plan of Care - Luis Daniel Lucero RN - 03/10/2023 11:33 AM CDT Patient Goals: Clinical Goals for the Shift: monitor Vs, labs, pain control Summary: Patient resting in bed VSS, no complaints of pain * Op Note - Hans Negorn MD - 03/10/2023 8:18 AM CDT Operative [...] palpable abnormality on KARLA - Wound measured [id number] at conclusion OPERATIVE NOTE: Patient was identified [...] for his paraplegic mother, Savannah Hyatt, , maritime pilot. Pt shared that his mother is currently staying at [facility] while pt is inpatient. Sent medicaid request to [employer] and provided financial reporting analyst application at bedside. Pt denied additional needs. Pt verbally nominated mother, Savannah Hyatt, , as surrogate decision maker. SW will continue to follow for additional needs. CM to follow for discharge planning needs. Becca Almanza LMSW * Initial Assessments - Paula Austin RN - 03/09/2023 1:48 PM CDT CM Initial Assessment Interview Note Information Obtained From: Other (Specify) Name: Savannah Hyatt (Mother) [phone] (03/09/231345) Admission Source: home Impression: Patient is [...] Coverage: self pay Prescription Coverage: No Pharmacy: [email or web address] - [place], [place] - [address] [facility] [address] -[id number] Primary Care Provider: Yadira, Physician -verified Prior to Admission: Functional Status: Independent with ADLs Primary Caregiver: Self Support System: Parent (Savannah Hyatt (Mother) [phone]) Home Care Services: No Durable Medical Equipment: Walker (wheeled), Wheelchair ramp (belongs to patient's mother) Living Arrangements: Parent (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 Patient's mother has MS and is unable to walk. Patient's father recently and that is when the patient became his mother's power tool repair technician and moved in with her. Address and [...] Collaboration with patient, MD, direct care nurse, Manager Of Digital, and other members of the health care team to assure needed interventions completed. 2. Return patient to optimal level of self-care post discharge. 3. Green Material Value Added Assessor will follow for Discharge Planning - interventions [...] Hyatt, 42 y.o. male (: 1980) Room: [place] [id number] ( ) LOS: 3 Rene Hyatt is a 42 y.o. male with type 2 DM admitted with DKA and endocrine is consulted to help with DKA management. Interval Events & Subjective Patient had no acute events overnight. They are feeling well this afternoon, had some vomiting thismorning. Endorsed poor sleep. Tolerating diet. He reports that he lives in [place] near [facility]. He is uninsured TDD: 33 BG range: [...] vitamin D undetectable - Would recommend starting 34733JV weekly x3 months. Then maintenance dose of 2000IU daily. ## Discharge Planning Use ???Adult END Diabetes Discharge?? Order Set - If the patient would like to be seen in the Diabetes Center, we will request an outpatient appointment. (Diabetes Center Scheduling: ) - recommend asking consumer educator to assess patient inpatient -- Sterling Negron MD Endocrinology, Metabolism, & Lipid Research Contact Info: New Consults: [phone]) General Endocrine (Non-Diabetes): [phone] (Check 'Treatment Team' assignment for Diabetes 1 vs 2 vs 3) Diabetes After-Hours & Weekends: Diabetes Fellow [phone] or [phone] Cosigned by Domonique Blake MD at 03/09/2023 [...] Hyatt, 42 y.o. male (: 1980) Room: [place] [address] [address] ( ) LOS: 2 Rene Hyatt is [...] (Diabetes Center Scheduling: ) - recommend asking consumer educator to assess patient inpatient -- Toby Teresa MD Endocrinology, Metabolism, & Lipid Research Contact Info: New Consults: [phone]) General Endocrine (Non-Diabetes): [phone] (Check 'Treatment Team' assignment for Diabetes 1 vs 2 vs 3) Diabetes After-Hours & Weekends: Diabetes Fellow [phone] or [phone] Cosigned by Alban Butler MD at 03/09/2023 [...] 9:25 AM CDT OPERATIVE REPORT FACILITY ID: [facility] SURGEON Arnaldo Robles MD PROPERTY OFFICER Adelita Lucas MD ANESTHESIA General PREOPERATIVE DIAGNOSES [...] deeper perineum and scrotum. Wound size was [id number] by the end of the case after [...] degrees Pulse: 85 84 83 84 Resp: 05 22 17 16 Temp: 36.6 ??C (97.8 ??F) [...] Wander García M.D. RB: SALLY Report ID: [id number] Reading Location: [id number] Assessment and Plan: Rene Hyatt is a [...] hesitate to contact us by paging the land acquisition specialist urology resident. Adelita Benoit MD 03/07/23 Urology [...] and Critical Care Surgery Department of Surgery [facility] [phone] * Brief Op Note - Bijan Villafuerte [...] - Assisting Anesthesiologist: Gabriela Doyle MD PhD CROP RESEARCH SCIENTIST: Murray Chacon CRNA Air Bag Builder: Theodora Sarmiento MD Chemical Processor: Nicole Veloz RN Scrub: Deanna Crocker [facility] Chemical Processor: Rhoda Almaguer RN Chemical Processor Second: Cookie Boston RN DATE OF [...] ulcers. By: Anil Birmingham MD Time: 03/06 2946 Comment: Urology examined patient, assessment is that [...] floor. By: Anil Birmingham MD Time: 03/06 0358 Comment: SOCIAL: patient's mother is paraplegic, patient is worried about her and does not have a cellphone. I called her and updated her on her son's situation, stating that he will require OR. She is worried and would like us to update her on any advancement that occurs, especially post-op. 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 First noted perineal discomfort progressed to scrotal swelling + pain over last two weeks. Presented to [place] this morning with WBC 17.3 elevated CRP/ESR, glucose 300s (not diagnosed diabetic), CT concerning for scrotal abscess vs NSTI. Start on vanc/cefe/clinda and received 3L IVF prior to transfer. Here AOx3 c/o scrotal pain, also noted deep ulcers x2 to L foot which probe to bone (plain films obtained at [place]). Will provide pain control, continue abx, discuss [...] 1150 * ED Pre-Arrival Note - Laquita Coleman, ARYAN - 03/06/2023 7:56 AM CDT Pre-Arrival Note Pt coming from [facility] in [place] accepted by Dr. Ramirez from urology. Pt has swelling to scrotum. CT shows abscess with air, consistent with Yamila's Gangrene. Report called to Dr. Ferrara and accepted to ED. Pt has received Vanc, Cefepime and Clinda. Laquita Coleman, ARYAN documented in this encounter Plan of Treatment [...] 7:41 PM CDT DIFFERENTIAL AUTO Routine 03/14/2023 7: 41 PM CDT CBC WITH AUTO DIFFERENTIAL Routine [...] CHECK SAMPLE STAT 03/06/2023 12:17 PM CDT WA CRITICAL CARE ILL/INJURED PATIENT INIT 30-74 MIN [...] DEVICE Fi nal Result Performing Organization Address [facility] Co de Phone Number [facility] [place] [address] * POCT glucose (03/25/2023 8:19 AM CDT) Glucose, POC 187 70 - 199 mg/dL Blood 03/25/2023 8:19 AM CDT 03/25/2023 8:19 AM CDT Lamonte Guzmán MD LAB POCT ORDERABLES - DEVICE Fi nal Result Performing Organization Address [facility] de Phone Number [facility] [place] [address] * POCT glucose (03/25/2023 4:51 AM CDT) Glucose, POC 198 70 - 199 mg/dL Blood 03/25/2023 4:51 AM CDT 03/25/2023 4:51 AM CDT Lamonte Guzmán MD LAB POCT ORDERABLES - DEVICE Fi nal Result Performing Organization Address City/[facility] Co de Phone Number [facility] [place] [address] * POCT glucose (03/25/2023 1:36 AM CDT) Glucose, POC 192 70 - 199 mg/dL Blood 03/25/2023 1:36 AM CDT 03/25/2023 1:36 AM CDT us Lamonte Guzmán MD LAB POCT ORDERABLES - DEVICE Fi nal Result Performing Organization Address [facility] Phone Number [facility] [place] [address] * POCT glucose (03/24/2023 9:47 PM CDT) Glucose, POC 163 70 - 199 mg/dL Blood 03/24/2023 9:47 PM CDT 03/24/2023 9:47 PM CDT us Lamonte Guzmán MD LAB POCT ORDERABLES - DEVICE Fi nal Result Performing Organization Address [facility] Phone Number [facility] [place] [address] * POCT glucose (03/24/2023 4:50 PM CDT) Glucose, POC 155 70 - 199 mg/dL Blood 03/24/2023 4:50 PM CDT 03/24/2023 4:50 PM CDT us Lamonte Guzmán MD LAB POCT ORDERABLES - DEVICE Fi nal Result Performing Organization Address [facility] de Phone Number [facility] [place] [address] * POCT glucose (03/24/2023 1:22 PM CDT) Glucose, POC 153 70 - 199 mg/dL Blood 03/24/2023 1:22 PM CDT 03/24/2023 1:22 PM CDT us Lamonte Guzmán MD LAB POCT ORDERABLES - DEVICE Fi nal Result Performing Organization Address [facility] Co de Phone Number [facility] [place] [address] * POCT glucose (03/24/2023 8:38 AM CDT) Glucose, POC 168 70 - 199 mg/dL Blood 03/24/2023 8:38 AM CDT 03/24/2023 8:38 AM CDT Lamonte Guzmán MD LAB POCT ORDERABLES - DEVICE Fi nal Result Performing Organization Address [facility] Co de Phone Number [facility] [place] [address] * POCT glucose (03/23/2023 8:35 PM CDT) Glucose, POC 159 70 - 199 mg/dL Blood 03/23/2023 8:35 PM CDT 03/23/2023 8:35 PM CDT Lamonte Guzmán MD LAB POCT ORDERABLES - DEVICE Fi nal Result Performing Organization Address [facility] Co de Phone Number [facility] [place] [address] * POCT glucose (03/23/2023 5:14 PM CDT) Glucose, POC 148 70 - 199 mg/dL Blood 03/23/2023 5:14 PM CDT 03/23/2023 5:14 PM CDT Evy Chong MD LAB POCT ORDERA BLES - DEVICE Final Result Performing Organization Address City/[facility] Co de Phone Number [facility] [place] [address] * POCT glucose (03/23/2023 12:23 PM CDT) Glucose, POC 178 70 - 199 mg/dL Blood 03/23/2023 12:2 3 PM CDT 03/23/2023 12:23 PM CDT Evy Chong MD LAB POCT ORDERA BLES - DEVICE Final Result Performing Organization Address [facility] de Phone Number [facility] [place] [address] * POCT glucose (03/23/2023 9:02 AM CDT) Glucose, POC 193 70 - 199 mg/dL Blood 03/23/2023 9:02 AM CDT 03/23/2023 9:02 AM CDT Evy Chong MD LAB POCT ORDERA BLES - DEVICE Final Result Performing Organization Address [facility] de Phone Number [facility] [place] [address] * eGFR (03/22/2023 11:01 PM CDT) eGFR [...] JARAMILLO LAB BLOOD ORDERABLES Shilpi montano Result [facility] [place] [address] * (ABNORMAL) Differential, auto (03/22/2023 11:01 PM CDT) Pathologist [facility] Neutrophil abs 3.9 1.7 - 6.5 K/cumm Imm gran abs 0.0 0.0 - 0.1 K/cumm [facility] Lymphocyte abs 2.7 0.8 - 3.3 K/cumm [facility] Monocyte abs 0.6 0.2 - 0.8 K/cumm [facility] Eosinophil abs 0.6(H) 0.0 - 0.5 K/cumm [facility] Basophil abs 0.0 0.0 - 0.1 K/cumm [facility] Neutrophil pct 49.0 % [facility] Comment: Interpretive Data Percent cell count reference ranges are not reported, since discordance with absolute values may lead to misinterpretation of CBC data. Current Interpretive Data was last revised on 2017. Imm gran pct 0.4 % [facility] Comment: Interpretive Data Percent cell count reference ranges are not reported, since discordance with absolute values may lead to misinterpretation of CBC data. Current Interpretive Data was last revised on 2017. Lymphocyte pct 34.2 % [facility] Comment: Interpretive Data Percent cell count reference ranges are not reported, since discordance with absolute values may lead to misinterpretation of CBC data. Current Interpretive Data was last revised on 2017. Monocyte pct 7.9 % [facility] Comment: Interpretive Data Percent cell count reference ranges are not reported, since discordance with absolute values may lead to misinterpretation of CBC data. Current Interpretive Data was last revised on 2017. Eosinophil pct 8.0 % [facility] Comment: Interpretive Data Percent cell count reference ranges are not reported, since discordance with absolute values may lead to misinterpretation of CBC data. Current Interpretive Data was last revised on 2017. Basophil pct 0.5 % [facility] Comment: Interpretive Data Percent cell count reference ranges are not reported, since discordance with absolute values may lead to misinterpretation of CBC data. Current Interpretive Data was last revised on 2017. Blood 03/22/2023 11:0 1 PM CDT 03/23/2023 12:05 AM CDT Josephine JARAMILLO LAB BLOOD ORDERABLES Shilpi montano Result [facility] Department [place] [address] * Basic metabolic panel (03/22/2023 11:01 PM CDT) Pathologist [facility] Sodium 140 135 - 145 mmol/L Potassium, pl 4.0 3.3 - 4.9 mmol/L [facility] Chloride 104 97 - 110 mmol/L [facility] CO2 28 22 - 32 mmol/L [facility] Anion gap 8 2 - 15 mmol/L [facility] BUN 17 6 - 25 mg/dL [facility] Creatinine 0.83 0.80 - 1.30 mg/dL [facility] Glucose 191 70 - 199 mg/dL [facility] Comment: Interpretive Data Fasting glucose [...] 2022. Calcium 8.5 8.5 - 10.3 mg/dL [facility] Blood 03/22/2023 11:0 1 PM CDT 03/23/2023 12:04 AM CDT Josephine JARAMILLO LAB BLOOD ORDERABLES Shilpi montano Result [facility] [place] [address] * (ABNORMAL) CBC with auto differential (03/22/2023 11:01 PM CDT) [facility] WBC 7.9 3.8 - 9.9 K/cumm Hgb 9.6(L) 13.0 - 17.5 g/dL [facility] Comment: Interpretive Data A reference range for this assay has not been established for patients with an unknown legal sex. Please refer to the laboratory test catalog for established sex-specific reference intervals. Current interpretive data was last revised on 2023. Hct 29.5(L) 38.9 - 50.3 % [facility] Comment: Interpretive Data A reference range for this assay has not been established for patients with an unknown legal sex. Please refer to the laboratory test catalog for established sex-specific reference intervals. Current interpretive data was last revised on 2023. Plt 226 150 - 400 K/cumm [facility] MPV 10.0 9.1 - 12.3 fL [facility] RBC 3.47(L) 4.30 - 5.80 M/cumm [facility] Comment: Interpretive Data A reference range for this assay has not been established for patients with an unknown legal sex. Please refer to the laboratory test catalog for established sex-specific reference intervals. Current interpretive data was last revised on 2023. MCV 85.0 81.3 - 96.4 fL [facility] MCH 27.7 27.1 - 33.3 pg [facility] MCHC 32.5 32.3 - 35.7 g/dL [facility] RDW CV 14.5 11.1 - 14.9 % [facility] RDW SD 44.3 35.7 - 48.1 fL [facility] NRBC abs 0.00 0.00 - 0.01 K/cumm [facility] Blood 03/22/2023 11:0 1 PM CDT 03/23/2023 12:05 AM CDT Josephine JARAMILLO LAB BLOOD ORDERABLES Shilpi l Result Performing Organization Address [facility] Co de Phone Number [facility] [place] [address] * POCT glucose (03/22/2023 8:13 PM CDT) Glucose, POC 145 70 - 199 mg/dL Blood 03/22/2023 8:13 PM CDT 03/22/2023 8:13 PM CDT Evy Chong MD LAB POCT ORDERA BLES - DEVICE Final Result Performing Organization Address [facility] de Phone Number [facility] Department [place] [address] * POCT glucose (03/22/2023 5:04 PM CDT) Glucose, POC 187 70 - 199 mg/dL Blood 03/22/2023 5:04 PM CDT 03/22/2023 5:04 PM CDT Evy Chong MD LAB POCT ORDERA BLES - DEVICE Final Result Performing Organization Address [facility]/ZIP Co de Phone Number [facility] [place] [address] * POCT glucose (03/22/2023 2:09 PM CDT) Glucose, POC 180 70 - 199 mg/dL Blood 03/22/2023 2:09 PM CDT 03/22/2023 2:09 PM CDT Evy Chong MD LAB POCT ORDERA BLES - DEVICE Final Result Performing Organization Address [facility] Co de Phone Number [facility] Department [place] [address] * POCT glucose (03/22/2023 8:13 AM CDT) Glucose, POC 175 70 - 199 mg/dL Blood 03/22/2023 8:13 AM CDT 03/22/2023 8:13 AM CDT Evy Chong MD LAB POCT ORDERA BLES - DEVICE Final Result Performing Organization Address [facility] de Phone Number [facility] Department [place] [address] * eGFR (03/21/2023 10:43 PM CDT) eGFR [...] JARAMILLO LAB BLOOD ORDERABLES Shilpi montano Result [facility] [place] [address] * (ABNORMAL) Differential, auto (03/21/2023 10:43 PM CDT) Neutrophil abs 4.6 1.7 - 6.5 K/cumm Imm gran abs 0.1 0.0 - 0.1 K/cumm [facility] Lymphocyte abs 2.8 0.8 - 3.3 K/cumm [facility] Monocyte abs 0.7 0.2 - 0.8 K/cumm [facility] Eosinophil abs 0.7(H) 0.0 - 0.5 K/cumm [facility] Basophil abs 0.0 0.0 - 0.1 K/cumm [facility] Neutrophil pct 51.6 % [facility] Comment: Interpretive Data Percent cell count reference ranges are not reported, since discordance with absolute values may lead to misinterpretation of CBC data. Current Interpretive Data was last revised on 2017. Imm gran pct 0.7 % [facility] Comment: Interpretive Data Percent cell count reference ranges are not reported, since discordance with absolute values may lead to misinterpretation of CBC data. Current Interpretive Data was last revised on 2017. Lymphocyte pct 31.7 % [facility] Comment: Interpretive Data Percent cell count reference ranges are not reported, since discordance with absolute values may lead to misinterpretation of CBC data. Current Interpretive Data was last revised on 2017. Monocyte pct 8.1 % [facility] Comment: Interpretive Data Percent cell count reference ranges are not reported, since discordance with absolute values may lead to misinterpretation of CBC data. Current Interpretive Data was last revised on 2017. Eosinophil pct 7.5 % [facility] Comment: Interpretive Data Percent cell count reference ranges are not reported, since discordance with absolute values may lead to misinterpretation of CBC data. Current Interpretive Data was last revised on 2017. Basophil pct 0.4 % [facility] Comment: Interpretive Data Percent cell count reference ranges are not reported, since discordance with absolute values may lead to misinterpretation of CBC data. Current Interpretive Data was last revised on 2017. Blood 03/21/2023 10:4 3 PM CDT 03/21/2023 11:18 PM CDT Josephine JARAMILLO LAB BLOOD ORDERABLES Shilpi montano Result [facility] [place] [address] * Basic metabolic panel (03/21/2023 10:43 PM CDT) Sodium 138 135 - 145 mmol/L Potassium, pl 4.1 3.3 - 4.9 mmol/L [facility] Chloride 106 97 - 110 mmol/L [facility] CO2 28 22 - 32 mmol/L [facility] Anion gap 4 2 - 15 mmol/L [facility] BUN 16 6 - 25 mg/dL [facility] Creatinine 0.81 0.80 - 1.30 mg/dL [facility] Glucose 158 70 - 199 mg/dL [facility] Comment: Interpretive Data Fasting glucose [...] 2022. Calcium 8.8 8.5 - 10.3 mg/dL [facility] Blood 03/21/2023 10:4 3 PM CDT 03/21/2023 11:18 PM CDT Josephine JARAMILLO LAB BLOOD ORDERABLES Shilpi Result [facility] [place] [address] * (ABNORMAL) CBC with auto differential (03/21/2023 10:43 PM CDT) [facility] WBC 9.0 3.8 - 9.9 K/cumm Hgb 10.4(L) 13.0 - 17.5 g/dL [facility] Comment: Interpretive Data A reference range for this assay has not been established for patients with an unknown legal sex. Please refer to the laboratory test catalog for established sex-specific reference intervals. Current interpretive data was last revised on 2023. Hct 31.6(L) 38.9 - 50.3 % [facility] Comment: Interpretive Data A reference range for this assay has not been established for patients with an unknown legal sex. Please refer to the laboratory test catalog for established sex-specific reference intervals. Current interpretive data was last revised on 2023. Plt 228 150 - 400 K/cumm [facility] MPV 9.6 9.1 - 12.3 fL [facility] RBC 3.72(L) 4.30 - 5.80 M/cumm [facility] Comment: Interpretive Data A reference range for this assay has not been established for patients with an unknown legal sex. Please refer to the laboratory test catalog for established sex-specific reference intervals. Current interpretive data was last revised on 2023. MCV 84.9 81.3 - 96.4 fL [facility] MCH 28.0 27.1 - 33.3 pg [facility] MCHC 32.9 32.3 - 35.7 g/dL [facility] RDW CV 14.5 11.1 - 14.9 % [facility] RDW SD 43.2 35.7 - 48.1 fL [facility] NRBC abs 0.00 0.00 - 0.01 K/cumm [facility] Blood 03/21/2023 10:4 3 PM CDT 03/21/2023 11:18 PM CDT Josephine JARAMILLO LAB BLOOD ORDERABLES Shilpi l Result Performing Organization Address City/[facility]/ZIP Co de Phone Number [facility] [place] [address] * Type and screen (03/21/2023 10:43 PM CDT) ABO Rh B Negative Keenan, indirect Negative [facility] Blood 03/21/2023 10:4 3 PM CDT 03/21/2023 11:13 PM CDT Narrative [facility] - 03/22/2023 12:13 AM CDT Has the patient had Daratumumab or Isatuximab in the past 6 months?->Unknown Matheus JARAMILLO LAB BLOOD BANK TEST ORDERAB LES Final Result [facility] [place] [address] * POCT glucose (03/21/2023 8:50 PM CDT) Glucose, POC 166 70 - 199 mg/dL Blood 03/21/2023 8:50 PM CDT 03/21/2023 8:50 PM CDT Evy Chong MD LAB POCT ORDERA BLES - DEVICE Final Result Performing Organization Address [facility] Co de Phone Number [facility] [place] [address] * POCT glucose (03/21/2023 5:40 PM CDT) Glucose, POC 197 70 - 199 mg/dL Blood 03/21/2023 5:40 PM CDT 03/21/2023 5:40 PM CDT Evy Chong MD LAB POCT ORDERA BLES - DEVICE Final Result Performing Organization Address [facility] de Phone Number [facility] [place] [address] * POCT glucose (03/21/2023 12:03 PM CDT) Glucose, POC 131 70 - 199 mg/dL Glucose comment 1 Glu2: RN/ Notified [facility] Blood 03/21/2023 12:0 3 PM CDT 03/21/2023 12:03 PM CDT Evy Chong MD LAB POCT ORDERA BLES - DEVICE Final Result Performing Organization Address [facility] Co de Phone Number [facility] [place] [address] * POCT glucose (03/21/2023 8:33 AM CDT) Glucose, POC 169 70 - 199 mg/dL Glucose comment 1 Glu2: RN/ Notified [facility] Blood 03/21/2023 8:33 AM CDT 03/21/2023 8:33 AM CDT us Evy Chong MD LAB POCT ORDERA BLES - DEVICE Final Result Performing Organization Address [facility] Co de Phone Number NICOLASA VALENTIN [facility] [place] [address] * eGFR (03/20/2023 10:55 PM CDT) eGFR [...] ORDERABLES Shilpi l Result Performing Organization Address City/[facility]/ZIP Co de Phone Number NICOLASA VALENTIN [facility] [place] [address] * (ABNORMAL) Differential, auto (03/20/2023 10:55 PM CDT) Neutrophil abs 5.3 1.7 - 6.5 K/cumm Imm gran abs 0.1 0.0 - 0.1 K/cumm [facility] Lymphocyte abs 2.9 0.8 - 3.3 K/cumm [facility] Monocyte abs 0.7 0.2 - 0.8 K/cumm [facility] Eosinophil abs 0.6(H) 0.0 - 0.5 K/cumm [facility] Basophil abs 0.0 0.0 - 0.1 K/cumm [facility] Neutrophil pct 55.3 % [facility] Comment: Interpretive Data Percent cell count reference ranges are not reported, since discordance with absolute values may lead to misinterpretation of CBC data. Current Interpretive Data was last revised on 2017. Imm gran pct 0.5 % [facility] Comment: Interpretive Data Percent cell count reference ranges are not reported, since discordance with absolute values may lead to misinterpretation of CBC data. Current Interpretive Data was last revised on 2017. Lymphocyte pct 30.5 % [facility] Comment: Interpretive Data Percent cell count reference ranges are not reported, since discordance with absolute values may lead to misinterpretation of CBC data. Current Interpretive Data was last revised on 2017. Monocyte pct 7.3 % [facility] Comment: Interpretive Data Percent cell count reference ranges are not reported, since discordance with absolute values may lead to misinterpretation of CBC data. Current Interpretive Data was last revised on 2017. Eosinophil pct 6.1 % [facility] Comment: Interpretive Data Percent cell count reference ranges are not reported, since discordance with absolute values may lead to misinterpretation of CBC data. Current Interpretive Data was last revised on 2017. Basophil pct 0.3 % [facility] Comment: Interpretive Data Percent cell count reference ranges are not reported, since discordance with absolute values may lead to misinterpretation of CBC data. Current Interpretive Data was last revised on 2017. Blood 03/20/2023 10:5 5 PM CDT 03/21/2023 12:06 AM CDT Josephine Joe JARAMILLO LAB BLOOD ORDERABLES Shilpi l Result Performing Organization Address City/[facility]/ZIP Co de Phone Number [facility] [place] [address] * (ABNORMAL) Basic metabolic panel (03/20/2023 10:55 PM CDT) [facility] Sodium 136 135 - 145 mmol/L Potassium, pl 3.8 3.3 - 4.9 mmol/L [facility] Chloride 102 97 - 110 mmol/L [facility] CO2 27 22 - 32 mmol/L [facility] Anion gap 7 2 - 15 mmol/L [facility] BUN 17 6 - 25 mg/dL [facility] Creatinine 0.77(L) 0.80 - 1.30 mg/dL [facility] Glucose 157 70 - 199 mg/dL [facility] Comment: Interpretive Data Fasting glucose [...] 2022. Calcium 8.8 8.5 - 10.3 mg/dL [facility] Blood 03/20/2023 10:5 5 PM CDT 03/21/2023 12:06 AM CDT Josephine Joe JARAMILLO LAB BLOOD ORDERABLES Shilpi l Result Performing Organization Address [facility]/ZIP Co de Phone Number [facility] [place] [address] * (ABNORMAL) CBC with auto differential (03/20/2023 10:55 PM CDT) [facility] WBC 9.6 3.8 - 9.9 K/cumm Hgb 11.1(L) 13.0 - 17.5 g/dL [facility] Comment: Interpretive Data A reference range for this assay has not been established for patients with an unknown legal sex. Please refer to the laboratory test catalog for established sex-specific reference intervals. Current interpretive data was last revised on 2023. Hct 34.6(L) 38.9 - 50.3 % [facility] Plt 239 150 - 400 K/cumm [facility] MPV 9.6 9.1 - 12.3 fL [facility] RBC 4.05(L) 4.30 - 5.80 M/cumm [facility] Comment: Interpretive Data A reference range for this assay has not been established for patients with an unknown legal sex. Please refer to the laboratory test catalog for established sex-specific reference intervals. Current interpretive data was last revised on 2023. MCV 85.4 81.3 - 96.4 fL [facility] MCH 27.4 27.1 - 33.3 pg [facility] MCHC 32.1(L) 32.3 - 35.7 g/dL [facility] RDW CV 14.3 11.1 - 14.9 % [facility] RDW SD 42.3 35.7 - 48.1 fL [facility] NRBC abs 0.00 0.00 - 0.01 K/cumm [facility] Blood 03/20/2023 10:5 5 PM CDT 03/21/2023 12:06 AM CDT Josephine JARAMILLO LAB BLOOD ORDERABLES Shipli montano Result [facility] [place] [address] * POCT glucose (03/20/2023 9:00 PM CDT) Glucose, POC 152 70 - 199 mg/dL Blood 03/20/2023 9:00 PM CDT 03/20/2023 9:00 PM CDT Evy Chong MD LAB POCT ORDERA BLES - DEVICE Final Result Performing Organization Address [facility] Co de Phone Number [facility] [place] [address] * POCT glucose (03/20/2023 5:37 PM CDT) Glucose, POC 158 70 - 199 mg/dL Blood 03/20/2023 5:37 PM CDT 03/20/2023 5:37 PM CDT Result [facility] Evy Chong MD LAB POCT ORDERA BLES - DEVICE Final Result Performing Organization Address [facility] Co de Phone Number [facility] [place] [address] * (ABNORMAL) POCT glucose (03/20/2023 12:24 PM CDT) Glucose, POC 257(H) 70 - 199 mg/dL Blood 03/20/2023 12:2 4 PM CDT 03/20/2023 12:24 PM CDT Result [facility] Evy Chong MD LAB POCT ORDERA BLES - DEVICE Final Result Performing Organization Address City/[facility] Co de Phone Number [facility] [place] [address] * POCT glucose (03/20/2023 8:23 AM CDT) Glucose, POC 176 70 - 199 mg/dL Blood 03/20/2023 8:23 AM CDT 03/20/2023 8:23 AM CDT Evy Chong MD LAB POCT ORDERA BLES - DEVICE Final Result Performing Organization Address [facility] de Phone Number [facility] [place] [address] * POCT glucose (03/19/2023 9:14 PM CDT) Glucose, POC 149 70 - 199 mg/dL Blood 03/19/2023 9:14 PM CDT 03/19/2023 9:14 PM CDT Evy Chong MD LAB POCT ORDERA BLES - DEVICE Final Result Performing Organization Address [facility] de Phone Number [facility] [place] [address] * POCT glucose (03/19/2023 6:00 PM CDT) Glucose, POC 159 70 - 199 mg/dL Blood 03/19/2023 6:00 PM CDT 03/19/2023 6:00 PM CDT Evy Chong MD LAB POCT ORDERA BLES - DEVICE Final Result Performing Organization Address [facility] de Phone Number [facility] [place] [address] * POCT glucose (03/19/2023 2:06 PM CDT) Glucose, POC 148 70 - 199 mg/dL Blood 03/19/2023 2:06 PM CDT 03/19/2023 2:06 PM CDT us Evy Chong MD LAB POCT ORDERA BLES - DEVICE Final Result Performing Organization Address City/[facility] Co de Phone Number NICOLASA VALENTIN [facility] Department [place] [address] * POCT glucose (03/19/2023 8:29 AM CDT) Glucose, POC 168 70 - 199 mg/dL Blood 03/19/2023 8:29 AM CDT 03/19/2023 8:29 AM CDT Evy Chong MD LAB POCT ORDERA BLES - DEVICE Final Result Performing Organization Address [facility] de Phone Number NICOLASA Rios [facility] Department [place] [address] * eGFR (03/18/2023 10:07 PM CDT) eGFR [...] JARAMILLO LAB BLOOD ORDERABLES Shilpi dusty Result [facility] [place] [address] * Differential, auto (03/18/2023 10:07 PM CDT) Neutrophil abs 5.8 1.7 - 6.5 K/cumm Imm gran abs 0.1 0.0 - 0.1 K/cumm [facility] Lymphocyte abs 3.0 0.8 - 3.3 K/cumm [facility] Monocyte abs 0.7 0.2 - 0.8 K/cumm [facility] Eosinophil abs 0.5 0.0 - 0.5 K/cumm [facility] Basophil abs 0.0 0.0 - 0.1 K/cumm [facility] Neutrophil pct 57.8 % [facility] Comment: Interpretive Data Percent cell count reference ranges are not reported, since discordance with absolute values may lead to misinterpretation of CBC data. Current Interpretive Data was last revised on 2017. Imm gran pct 0.5 % [facility] Comment: Interpretive Data Percent cell count reference ranges are not reported, since discordance with absolute values may lead to misinterpretation of CBC data. Current Interpretive Data was last revised on 2017. Lymphocyte pct 29.8 % [facility] Comment: Interpretive Data Percent cell count reference ranges are not reported, since discordance with absolute values may lead to misinterpretation of CBC data. Current Interpretive Data was last revised on 2017. Monocyte pct 6.8 % [facility] Comment: Interpretive Data Percent cell count reference ranges are not reported, since discordance with absolute values may lead to misinterpretation of CBC data. Current Interpretive Data was last revised on 2017. Eosinophil pct 4.8 % [facility] Comment: Interpretive Data Percent cell count reference ranges are not reported, since discordance with absolute values may lead to misinterpretation of CBC data. Current Interpretive Data was last revised on 2017. Basophil pct 0.3 % [facility] Comment: Interpretive Data Percent cell count reference ranges are not reported, since discordance with absolute values may lead to misinterpretation of CBC data. Current Interpretive Data was last revised on 2017. Blood 03/18/2023 10:0 7 PM CDT 03/18/2023 11:24 PM CDT Josephine JARAMILLO LAB BLOOD ORDERABLES Shilpi montano Result [facility] [place] [address] * Basic metabolic panel (03/18/2023 10:07 PM CDT) Sodium 140 135 - 145 mmol/L Potassium, pl 3.9 3.3 - 4.9 mmol/L [facility] Chloride 103 97 - 110 mmol/L [facility] CO2 28 22 - 32 mmol/L [facility] Anion gap 9 2 - 15 mmol/L [facility] BUN 11 6 - 25 mg/dL [facility] Creatinine 0.83 0.80 - 1.30 mg/dL [facility] Glucose 138 70 - 199 mg/dL [facility] Comment: Interpretive Data Fasting glucose [...] 2022. Calcium 8.7 8.5 - 10.3 mg/dL [facility] Blood 03/18/2023 10:0 7 PM CDT 03/18/2023 11:24 PM CDT Josephine JARAMILLO LAB BLOOD ORDERABLES Shilpi l Result [facility] [place] [address] * (ABNORMAL) CBC with auto differential (03/18/2023 10:07 PM CDT) [facility] WBC 10.0(H) 3.8 - 9.9 K/cumm Hgb 10.3(L) 13.0 - 17.5 g/dL [facility] Hct 31.9(L) 38.9 - 50.3 % [facility] Plt 273 150 - 400 K/cumm [facility] MPV 9.6 9.1 - 12.3 fL [facility] RBC 3.78(L) 4.30 - 5.80 M/cumm [facility] Comment: Interpretive Data A reference range for this assay has not been established for patients with an unknown legal sex. Please refer to the laboratory test catalog for established sex-specific reference intervals. Current interpretive data was last revised on 2023. MCV 84.4 81.3 - 96.4 fL [facility] MCH 27.2 27.1 - 33.3 pg [facility] MCHC 32.3 32.3 - 35.7 g/dL [facility] RDW CV 13.5 11.1 - 14.9 % [facility] RDW SD 39.8 35.7 - 48.1 fL [facility] NRBC abs 0.00 0.00 - 0.01 K/cumm [facility] Blood 03/18/2023 10:0 7 PM CDT 03/18/2023 11:24 PM CDT Josephine JARAMILLO LAB BLOOD ORDERABLES Shilpi l Result [facility] [place] [address] * Type and screen (03/18/2023 10:07 PM CDT) ABO Rh B Negative Keenan, indirect Negative [facility] Blood 03/18/2023 10:0 7 PM CDT 03/18/2023 11:24 PM CDT Narrative [facility] - 03/19/2023 12:13 AM CDT Has the patient had Daratumumab or Isatuximab in the past 6 months?->Unknown Matheus JARAMILLO LAB BLOOD BANK TEST ORDERAB LES Final Result Performing Organization Address City/[facility]/ZIP Co de Phone Number [facility] [place] [address] * POCT glucose (03/18/2023 9:59 PM CDT) Glucose, POC 131 70 - 199 mg/dL Blood 03/18/2023 9:59 PM CDT 03/18/2023 9:59 PM CDT Evy Chong MD LAB POCT ORDERA BLES - DEVICE Final Result Performing Organization Address City/[facility]/ZIP Co de Phone Number [facility] [place] [address] * POCT glucose (03/18/2023 6:11 PM CDT) Glucose, POC 142 70 - 199 mg/dL Blood 03/18/2023 6:11 PM CDT 03/18/2023 6:11 PM CDT Evy Chong MD LAB POCT ORDERA BLES - DEVICE Final Result Performing Organization Address City/[facility]/ZIP Co de Phone Number [facility] [place] [address] * POCT glucose (03/18/2023 1:17 PM CDT) Glucose, POC 191 70 - 199 mg/dL Blood 03/18/2023 1:17 PM CDT 03/18/2023 1:17 PM CDT Evy Chong MD LAB POCT ORDERA BLES - DEVICE Final Result Performing Organization Address [facility]/ZIP Co de Phone Number [facility] [place] [address] * POCT glucose (03/18/2023 8:32 AM CDT) Glucose, POC 156 70 - 199 mg/dL Blood 03/18/2023 8:32 AM CDT 03/18/2023 8:32 AM CDT Evy Chong MD LAB POCT ORDERA BLES - DEVICE Final Result Performing Organization Address City/[facility] [place] [address] * (ABNORMAL) Hepatic function panel (03/17/2023 10:10 PM CDT) Bilirubin, total 0.2 0.1 - 1.2 mg/dL Bilirubin, direct <0.2 0.1 - 0.3 mg/dL [facility] Protein, pl 6.0(L) 6.5 - 8.5 g/dL [facility] Albumin 3.0(L) 3.5 - 5.0 g/dL [facility] Alk phos 68 40 - 130 Units/L [facility] ALT 11 7 - 55 Units/L [facility] AST 23 10 - 50 Units/L [facility] Blood 03/17/2023 10:1 0 PM CDT 03/17/2023 10:52 PM CDT us Evy Chong MD LAB BLOOD ORDER MARA Final Result Performing Organization Address [facility] Co de Phone Number [facility] [place] [address] * eGFR (03/17/2023 10:10 PM CDT) eGFR [...] ORDERABLES Shilpi l Result Performing Organization Address [facility] Co de Phone Number [facility] [place] [address] * Differential, auto (03/17/2023 10:10 PM CDT) Neutrophil abs 5.2 1.7 - 6.5 K/cumm Imm gran abs 0.1 0.0 - 0.1 K/cumm [facility] Lymphocyte abs 2.7 0.8 - 3.3 K/cumm [facility] Monocyte abs 0.7 0.2 - 0.8 K/cumm [facility] Eosinophil abs 0.4 0.0 - 0.5 K/cumm [facility] Basophil abs 0.0 0.0 - 0.1 K/cumm [facility] Neutrophil pct 57.3 % [facility] Comment: Interpretive Data Percent cell count reference ranges are not reported, since discordance with absolute values may lead to misinterpretation of CBC data. Current Interpretive Data was last revised on 2017. Imm gran pct 0.6 % [facility] Comment: Interpretive Data Percent cell count reference ranges are not reported, since discordance with absolute values may lead to misinterpretation of CBC data. Current Interpretive Data was last revised on 2017. Lymphocyte pct 29.9 % [facility] Comment: Interpretive Data Percent cell count reference ranges are not reported, since discordance with absolute values may lead to misinterpretation of CBC data. Current Interpretive Data was last revised on 2017. Monocyte pct 7.7 % [facility] Comment: Interpretive Data Percent cell count reference ranges are not reported, since discordance with absolute values may lead to misinterpretation of CBC data. Current Interpretive Data was last revised on 2017. Eosinophil pct 4.3 % [facility] Comment: Interpretive Data Percent cell count reference ranges are not reported, since discordance with absolute values may lead to misinterpretation of CBC data. Current Interpretive Data was last revised on 2017. Basophil pct 0.2 % [facility] Comment: Interpretive Data Percent cell count reference ranges are not reported, since discordance with absolute values may lead to misinterpretation of CBC data. Current Interpretive Data was last revised on 2017. Blood 03/17/2023 10:1 0 PM CDT 03/17/2023 11:01 PM CDT Josephine JARAMILLO LAB BLOOD ORDERABLES Shilpi l Result [facility] [place] [address] * Basic metabolic panel (03/17/2023 10:10 PM CDT) [facility] Sodium 139 135 - 145 mmol/L Potassium, pl 3.9 3.3 - 4.9 mmol/L [facility] Chloride 101 97 - 110 mmol/L [facility] [facility] CO2 29 22 - 32 mmol/L [facility] Anion gap 9 2 - 15 mmol/L [facility] BUN 13 6 - 25 mg/dL [facility] Creatinine 0.82 0.80 - 1.30 mg/dL [facility] Glucose 163 70 - 199 mg/dL [facility] Comment: Interpretive Data Fasting glucose [...] 2022. Calcium 8.7 8.5 - 10.3 mg/dL [facility] Blood 03/17/2023 10:1 0 PM CDT 03/17/2023 10:52 PM CDT Josephine JARAMILLO LAB BLOOD ORDERABLES Shilpi l Result Performing Organization Address [facility]/ZIP Co de Phone Number [facility] Department [place] [address] * (ABNORMAL) CBC with auto differential (03/17/2023 10:10 PM CDT) [facility] WBC 9.1 3.8 - 9.9 K/cumm Hgb 10.0(L) 13.0 - 17.5 g/dL [facility] Hct 31.2(L) 38.9 - 50.3 % [facility] Plt 235 150 - 400 K/cumm [facility] MPV 9.4 9.1 - 12.3 fL [facility] RBC 3.70(L) 4.30 - 5.80 M/cumm [facility] Comment: Interpretive Data A reference range for this assay has not been established for patients with an unknown legal sex. Please refer to the laboratory test catalog for established sex-specific reference intervals. Current interpretive data was last revised on 2023. MCV 84.3 81.3 - 96.4 fL [facility] MCH 27.0(L) 27.1 - 33.3 pg [facility] MCHC 32.1(L) 32.3 - 35.7 g/dL [facility] RDW CV 13.2 11.1 - 14.9 % [facility] RDW SD 39.0 35.7 - 48.1 fL [facility] NRBC abs 0.00 0.00 - 0.01 K/cumm [facility] Blood 03/17/2023 10:1 0 PM CDT 03/17/2023 11:01 PM CDT us Josephine JARAMLILO LAB BLOOD ORDERABLES Shilpi l Result [facility] [place] [address] * (ABNORMAL) POCT glucose (03/17/2023 9:22 PM CDT) [facility] Glucose, POC 205(H) 70 - 199 mg/dL Blood 03/17/2023 9:22 PM CDT 03/17/2023 9:22 PM CDT us Evy Chong MD LAB POCT ORDERA BLES - DEVICE Final Result Performing Organization Address City/[facility]/ZIP Co de Phone Number [facility] [place] [address] * POCT glucose (03/17/2023 6:24 PM CDT) Glucose, POC 166 70 - 199 mg/dL Blood 03/17/2023 6:24 PM CDT 03/17/2023 6:24 PM CDT us Evy Chong MD LAB POCT ORDERA BLES - DEVICE Final Result Performing Organization Address [facility] Co de Phone Number [facility] [place] [address] * POCT glucose (03/17/2023 12:47 PM CDT) Glucose, POC 142 70 - 199 mg/dL Blood 03/17/2023 12:4 7 PM CDT 03/17/2023 12:47 PM CDT us Evy Chong MD LAB POCT ORDERA BLES - DEVICE Final Result Performing Organization Address [facility]/ZIP Co de Phone Number [facility] [place] [address] * POCT glucose (03/17/2023 9:09 AM CDT) Glucose, POC 175 70 - 199 mg/dL [facility] Blood 03/17/2023 9:09 AM CDT 03/17/2023 9:09 AM CDT us Evy Chong MD LAB POCT ORDERA BLES - DEVICE Final Result Performing Organization Address City/[facility]/ZIP Co de Phone Number [facility] Department [place] [address] * eGFR (03/16/2023 8:56 PM CDT) [facility] eGFR >90 90 - 130 mL/min/1. [address] [facility] Comment: Interpretive Data Reference Interval Normal [...] JARAMILLO LAB BLOOD ORDERABLES Shilpi montano Result NICOLASA VALENTIN [facility] Department [place] [address] * Differential, auto (03/16/2023 8:56 PM CDT) [facility] Neutrophil abs 6.3 1.7 - 6.5 K/cumm [facility] Imm gran abs 0.1 0.0 - 0.1 K/cumm [facility] Lymphocyte abs 2.7 0.8 - 3.3 K/cumm [facility] Monocyte abs 0.7 0.2 - 0.8 K/cumm [facility] Eosinophil abs 0.3 0.0 - 0.5 K/cumm [facility] Basophil abs 0.0 0.0 - 0.1 K/cumm [facility] Neutrophil pct 62.4 % [facility] Comment: Interpretive Data Percent cell count reference ranges are not reported, since discordance with absolute values may lead to misinterpretation of CBC data. Current Interpretive Data was last revised on 2017. Imm gran pct 0.6 % [facility] Comment: Interpretive Data Percent cell count reference ranges are not reported, since discordance with absolute values may lead to misinterpretation of CBC data. Current Interpretive Data was last revised on 2017. Lymphocyte pct 26.9 % [facility] Comment: Interpretive Data Percent cell count reference ranges are not reported, since discordance with absolute values may lead to misinterpretation of CBC data. Current Interpretive Data was last revised on 2017. Monocyte pct 7.2 % [facility] Comment: Interpretive Data Percent cell count reference ranges are not reported, since discordance with absolute values may lead to misinterpretation of CBC data. Current Interpretive Data was last revised on 2017. Eosinophil pct 2.6 % [facility] Comment: Interpretive Data Percent cell count reference ranges are not reported, since discordance with absolute values may lead to misinterpretation of CBC data. Current Interpretive Data was last revised on 2017. Basophil pct 0.3 % [facility] Comment: Interpretive Data Percent cell count reference ranges are not reported, since discordance with absolute values may lead to misinterpretation of CBC data. Current Interpretive Data was last revised on 2017. Blood 03/16/2023 8:56 PM CDT 03/16/2023 9:54 PM CDT Josephine JARAMILLO LAB BLOOD ORDERABLES Shilpi montano Result [facility] Department [place] [address] * Basic metabolic panel (03/16/2023 8:56 PM CDT) Pathologist [facility] Sodium 139 135 - 145 mmol/L [facility] Potassium, pl 4.2 3.3 - 4.9 mmol/L [facility] Chloride 101 97 - 110 mmol/L [facility] CO2 29 22 - 32 mmol/L [facility] Anion gap 9 2 - 15 mmol/L [facility] BUN 8 6 - 25 mg/dL [facility] Creatinine 0.92 0.80 - 1.30 mg/dL [facility] Glucose 158 70 - 199 mg/dL [facility] Comment: Interpretive Data Fasting glucose [...] 2022. Calcium 8.6 8.5 - 10.3 mg/dL [facility] Blood 03/16/2023 8:56 PM CDT 03/16/2023 9:54 PM CDT Josephine JARAMILLO LAB BLOOD ORDERABLES Shilpi l Result Performing Organization Address City/[facility]/ZIP Co de Phone Number [facility] Department [place] [address] * (ABNORMAL) CBC with auto differential (03/16/2023 8:56 PM CDT) Pathologist [facility] WBC 10.0(H) 3.8 - 9.9 K/cumm [facility] Hgb 10.1(L) 13.0 - 17.5 g/dL [facility] Hct 31.3(L) 38.9 - 50.3 % [facility] Plt 244 150 - 400 K/cumm [facility] MPV 9.3 9.1 - 12.3 fL [facility] RBC 3.80(L) 4.30 - 5.80 M/cumm [facility] Comment: Interpretive Data A reference range for this assay has not been established for patients with an unknown legal sex. Please refer to the laboratory test catalog for established sex-specific reference intervals. Current interpretive data was last revised on 2023. MCV 82.4 81.3 - 96.4 fL [facility] MCH 26.6(L) 27.1 - 33.3 pg [facility] MCHC 32.3 32.3 - 35.7 g/dL [facility] RDW CV 13.2 11.1 - 14.9 % [facility] RDW SD 38.9 35.7 - 48.1 fL [facility] NRBC abs 0.00 0.00 - 0.01 K/cumm [facility] Blood 03/16/2023 8:56 PM CDT 03/16/2023 9:54 PM CDT us Josephine JARAMILLO LAB BLOOD ORDERABLES Shilpi l Result [facility] [place] [place] [address] * POCT glucose (03/16/2023 8:47 PM CDT) [facility] Glucose, POC 167 70 - 199 mg/dL [facility] Blood 03/16/2023 8:47 PM CDT 03/16/2023 8:47 PM CDT Neno Lei MD LAB POCT ORDERABLES - DEV ICE Final Result [facility] [place] [address] * POCT glucose (03/16/2023 6:21 PM CDT) Glucose, POC 166 70 - 199 mg/dL [facility] Blood 03/16/2023 6:21 PM CDT 03/16/2023 6:21 PM CDT Neno Lei MD LAB POCT ORDERABLES - DEV ICE Final Result Performing Organization Address [facility] de Phone Number [facility] [place] [address] * (ABNORMAL) Albumin Creatinine Ratio, Urine (03/16/2023 4:21 PM CDT) Albumin Ur 39.3 mg/L [facility] Comment: Interpretive Data No reference range established. Current interpretive data was last revised 2018. Creatinine Ur 88.9 mg/dL [facility] Comment: Interpretive Data No reference range established. Current interpretive data was last revised 2018. Albumin Creatinine Ratio, Ur 44(H) 1 - 29 mg/g [facility] Urine 03/16/2023 4:21 PM CDT 03/16/2023 6:01 PM CDT Luis Daniel Hanna NP LAB URINE ORDERABLES Fin al Result Performing Organization Address [facility] de Phone Number [facility] [place] [address] * POCT glucose (03/16/2023 2:19 PM CDT) Glucose, POC 162 70 - 199 mg/dL [facility] Blood 03/16/2023 2:19 PM CDT 03/16/2023 2:19 PM CDT Neno Lei MD LAB POCT ORDERABLES - DEV ICE Final Result Performing Organization Address [facility] Co de Phone Number [facility] [place] [address] * POCT glucose (03/16/2023 9:06 AM CDT) Glucose, POC 178 70 - 199 mg/dL [facility] Blood 03/16/2023 9:06 AM CDT 03/16/2023 9:06 AM CDT Neno Lei MD LAB POCT ORDERABLES - DEV ICE Final Result Performing Organization Address [facility] Co de Phone Number [facility] [place] [address] * POCT glucose (03/15/2023 9:01 PM CDT) Pathologist [facility] Glucose, POC 147 70 - 199 mg/dL [facility] Blood 03/15/2023 9:01 PM CDT 03/15/2023 9:01 PM CDT Neno Lei MD LAB POCT ORDERABLES - DEV ICE Final Result Performing Organization Address [facility] de Phone Number [facility] [place] [address] * eGFR (03/15/2023 7:38 PM CDT) eGFR >90 90 - 130 mL/min/1. 73 m2 [facility] Comment: Interpretive Data Reference Interval [...] JARAMILLO LAB BLOOD ORDERABLES Shilpi montano Result [facility] Department [place] [address] * Differential, auto (03/15/2023 7:38 PM CDT) Neutrophil abs 5.1 1.7 - 6.5 K/cumm [facility] Imm gran abs 0.1 0.0 - 0.1 K/cumm [facility] Lymphocyte abs 2.3 0.8 - 3.3 K/cumm [facility] Monocyte abs 0.7 0.2 - 0.8 K/cumm [facility] Eosinophil abs 0.3 0.0 - 0.5 K/cumm [facility] Basophil abs 0.0 0.0 - 0.1 K/cumm [facility] Neutrophil pct 60.2 % [facility] Comment: Interpretive Data Percent cell count reference ranges are not reported, since discordance with absolute values may lead to misinterpretation of CBC data. Current Interpretive Data was last revised on 2017. Imm gran pct 0.7 % [facility] Comment: Interpretive Data Percent cell count reference ranges are not reported, since discordance with absolute values may lead to misinterpretation of CBC data. Current Interpretive Data was last revised on 2017. Lymphocyte pct 26.9 % [facility] Comment: Interpretive Data Percent cell count reference ranges are not reported, since discordance with absolute values may lead to misinterpretation of CBC data. Current Interpretive Data was last revised on 2017. Monocyte pct 8.5 % [facility] Comment: Interpretive Data Percent cell count reference ranges are not reported, since discordance with absolute values may lead to misinterpretation of CBC data. Current Interpretive Data was last revised on 2017. Eosinophil pct 3.3 % [facility] Comment: Interpretive Data Percent cell count reference ranges are not reported, since discordance with absolute values may lead to misinterpretation of CBC data. Current Interpretive Data was last revised on 2017. Basophil pct 0.4 % [facility] Comment: Interpretive Data Percent cell count reference ranges are not reported, since discordance with absolute values may lead to misinterpretation of CBC data. Current Interpretive Data was last revised on 2017. Blood 03/15/2023 7:38 PM CDT 03/15/2023 8:15 PM CDT Josephine JARAMILLO LAB BLOOD ORDERABLES Shilpi montano Result [facility] [place] [address] * Basic metabolic panel (03/15/2023 7:38 PM CDT) Sodium 138 135 - 145 mmol/L [facility] Potassium, pl 4.2 3.3 - 4.9 mmol/L [facility] Chloride 102 97 - 110 mmol/L [facility] CO2 28 22 - 32 mmol/L [facility] Anion gap 8 2 - 15 mmol/L [facility] BUN 9 6 - 25 mg/dL [facility] Creatinine 0.83 0.80 - 1.30 mg/dL [facility] Glucose 186 70 - 199 mg/dL [facility] Comment: Interpretive Data Fasting glucose [...] 2022. Calcium 8.5 8.5 - 10.3 mg/dL [facility] Blood 03/15/2023 7:38 PM CDT 03/15/2023 8:16 PM CDT Josephine JARAMILLO LAB BLOOD ORDERABLES Shilpi montano Result [facility] Department [place] [address] * (ABNORMAL) CBC with auto differential (03/15/2023 7:38 PM CDT) [facility] WBC 8.5 3.8 - 9.9 K/cumm [facility] Hgb 9.9(L) 13.0 - 17.5 g/dL [facility] Hct 30.5(L) 38.9 - 50.3 % [facility] Plt 214 150 - 400 K/cumm [facility] MPV 9.5 9.1 - 12.3 fL [facility] RBC 3.67(L) 4.30 - 5.80 M/cumm [facility] MCV 83.1 81.3 - 96.4 fL [facility] MCH 27.0(L) 27.1 - 33.3 pg [facility] MCHC 32.5 32.3 - 35.7 g/dL [facility] RDW CV 13.2 11.1 - 14.9 % [facility] RDW SD 39.6 35.7 - 48.1 fL [facility] NRBC abs 0.00 0.00 - 0.01 K/cumm [facility] Blood 03/15/2023 7:38 PM CDT 03/15/2023 8:15 PM CDT Josephine JARAMILLO LAB BLOOD ORDERABLES Shilpi l Result Performing Organization Address City/[facility]/ZIP Co de Phone Number [facility] [place] [address] * Type and screen (03/15/2023 7:38 PM CDT) Keenan, indirect Negative [facility] ABO Rh B Negative [facility] Blood 03/15/2023 7:38 PM CDT 03/15/2023 8:18 PM CDT Narrative [facility] - 03/15/2023 9:10 PM CDT Has the patient had Daratumumab or Isatuximab in the past 6 months?->Unknown Matheus JARAMILLO LAB BLOOD BANK TEST ORDERAB LES Final Result Performing Organization Address [facility] Co de Phone Number [facility] [place] [address] * (ABNORMAL) POCT glucose (03/15/2023 5:06 PM CDT) Glucose, POC 208(H) 70 - 199 mg/dL [facility] Blood 03/15/2023 5:06 PM CDT 03/15/2023 5:06 PM CDT Neno Lei MD LAB POCT ORDERABLES - DEV ICE Final Result [facility] [place] [address] * POCT glucose (03/15/2023 12:14 PM CDT) Glucose, POC 176 70 - 199 mg/dL [facility] Blood 03/15/2023 12:1 4 PM CDT 03/15/2023 12:14 PM CDT us Neno Lei MD LAB POCT ORDERABLES - DEV ICE Final Result Performing Organization Address [facility] de Phone Number [facility] [place] [address] * POCT glucose (03/15/2023 7:35 AM CDT) Glucose, POC 194 70 - 199 mg/dL [facility] Blood 03/15/2023 7:35 AM CDT 03/15/2023 7:35 AM CDT us Neno Lei MD LAB POCT ORDERABLES - DEV ICE Final Result Performing Organization Address [facility] de Phone Number [facility] [place] [address] * POCT glucose (03/14/2023 7:52 PM CDT) Glucose, POC 130 70 - 199 mg/dL [facility] Blood 03/14/2023 7:52 PM CDT 03/14/2023 7:52 PM CDT Neno Lei MD LAB POCT ORDERABLES - DEV ICE Final Result Performing Organization Address [facility] [place] [address] * eGFR (03/14/2023 7:41 PM CDT) Pathologist [facility] eGFR >90 90 - 130 mL/min/1. 73 m2 [facility] Comment: Interpretive Data Reference Interval [...] JARAMILLO LAB BLOOD ORDERABLES Shilpi montano Result [facility] Department of Laboratories [place], [place] [id number] * Differential, auto (03/14/2023 7:41 PM CDT) Neutrophil abs 6.0 1.7 - 6.5 K/cumm [facility] Imm gran abs 0.1 0.0 - 0.1 K/cumm [facility] Lymphocyte abs 2.5 0.8 - 3.3 K/cumm [facility] Monocyte abs 0.8 0.2 - 0.8 K/cumm [facility] Eosinophil abs 0.3 0.0 - 0.5 K/cumm [facility] Basophil abs 0.0 0.0 - 0.1 K/cumm [facility] Neutrophil pct 61.8 % [facility] Comment: Interpretive Data Percent cell count reference ranges are not reported, since discordance with absolute values may lead to misinterpretation of CBC data. Current Interpretive Data was last revised on 2017. Imm gran pct 0.7 % [facility] Comment: Interpretive Data Percent cell count reference ranges are not reported, since discordance with absolute values may lead to misinterpretation of CBC data. Current Interpretive Data was last revised on 2017. Lymphocyte pct 26.1 % [facility] Comment: Interpretive Data Percent cell count reference ranges are not reported, since discordance with absolute values may lead to misinterpretation of CBC data. Current Interpretive Data was last revised on 2017. Monocyte pct 7.8 % [facility] Comment: Interpretive Data Percent cell count reference ranges are not reported, since discordance with absolute values may lead to misinterpretation of CBC data. Current Interpretive Data was last revised on 2017. Eosinophil pct 3.3 % [facility] Comment: Interpretive Data Percent cell count reference ranges are not reported, since discordance with absolute values may lead to misinterpretation of CBC data. Current Interpretive Data was last revised on 2017. Basophil pct 0.3 % [facility] Comment: Interpretive Data Percent cell count reference ranges are not reported, since discordance with absolute values may lead to misinterpretation of CBC data. Current Interpretive Data was last revised on 2017. Blood 03/14/2023 7:41 PM CDT 03/14/2023 8:20 PM CDT Josephine JARAMILLO LAB BLOOD ORDERABLES Shilpi l Result [facility] Department of Laboratories [place], [place] [id number] * (ABNORMAL) Basic metabolic panel (03/14/2023 7:41 PM CDT) Sodium 139 135 - 145 mmol/L [facility] Potassium, pl 4.0 3.3 - 4.9 mmol/L [facility] Chloride 100 97 - 110 mmol/L [facility] CO2 30 22 - 32 mmol/L [facility] Anion gap 9 2 - 15 mmol/L [facility] BUN 5(L) 6 - 25 mg/dL [facility] Creatinine 0.72(L) 0.80 - 1.30 mg/dL [facility] Glucose 137 70 - 199 mg/dL [facility] Comment: Interpretive Data Fasting glucose [...] 2022. Calcium 8.8 8.5 - 10.3 mg/dL [facility] Blood 03/14/2023 7:41 PM CDT 03/14/2023 8:20 PM CDT Josephine JARAMILLO LAB BLOOD ORDERABLES Shilpi montano Result [facility] Department [place] [address] * (ABNORMAL) CBC with auto differential (03/14/2023 7:41 PM CDT) [facility] WBC 9.7 3.8 - 9.9 K/cumm [facility] Hgb 10.9(L) 13.0 - 17.5 g/dL [facility] Hct 33.2(L) 38.9 - 50.3 % [facility] Plt 228 150 - 400 K/cumm [facility] MPV 9.2 9.1 - 12.3 fL [facility] RBC 3.96(L) 4.30 - 5.80 M/cumm [facility] MCV 83.8 81.3 - 96.4 fL [facility] MCH 27.5 27.1 - 33.3 pg [facility] MCHC 32.8 32.3 - 35.7 g/dL [facility] RDW CV 12.9 11.1 - 14.9 % [facility] RDW SD 39.1 35.7 - 48.1 fL [facility] NRBC abs 0.00 0.00 - 0.01 K/cumm [facility] Blood 03/14/2023 7:41 PM CDT 03/14/2023 8:20 PM CDT us Josephine JARAMILLO LAB BLOOD ORDERABLES Shilpi l Result Performing Organization Address City/[facility]/ZIP Co de Phone Number [facility] Department [place] [address] * POCT glucose (03/14/2023 5:44 PM CDT) Glucose, POC 137 70 - 199 mg/dL [facility] Blood 03/14/2023 5:44 PM CDT 03/14/2023 5:44 PM CDT Neno Lei MD LAB POCT ORDERABLES - DEV ICE Final Result Performing Organization Address City/[facility] Co de Phone Number [facility] [place] [address] * POCT glucose (03/14/2023 1:43 PM CDT) Glucose, POC 162 70 - 199 mg/dL [facility] Blood 03/14/2023 1:43 PM CDT 03/14/2023 1:43 PM CDT us Neno Lei MD LAB POCT ORDERABLES - DEV ICE Final Result Performing Organization Address City/[facility]/ZIP Co de Phone Number [facility] [place] [address] * POCT glucose (03/14/2023 8:38 AM CDT) Glucose, POC 177 70 - 199 mg/dL [facility] Blood 03/14/2023 8:38 AM CDT 03/14/2023 8:38 AM CDT Neno Lei MD LAB POCT ORDERABLES - DEV ICE Final Result [facility] [place] [address] * eGFR (03/13/2023 10:14 PM CDT) eGFR >90 90 - 130 mL/min/1. 73 m2 [facility] Comment: Interpretive Data Reference Interval [...] JARAMILLO LAB BLOOD ORDERABLES Shilpi montano Result [facility] [place] [address] * Differential, auto (03/13/2023 10:14 PM CDT) Neutrophil abs 4.9 1.7 - 6.5 K/cumm [facility] gran abs 0.1 0.0 - 0.1 K/cumm [facility] Lymphocyte abs 2.5 0.8 - 3.3 K/cumm [facility] Monocyte abs 0.8 0.2 - 0.8 K/cumm [facility] Eosinophil abs 0.3 0.0 - 0.5 K/cumm [facility] Basophil abs 0.0 0.0 - 0.1 K/cumm [facility] Neutrophil pct 56.6 % [facility] Comment: Interpretive Data Percent cell count reference ranges are not reported, since discordance with absolute values may lead to misinterpretation of CBC data. Current Interpretive Data was last revised on 2017. Imm gran pct 1.5 % [facility] Comment: Interpretive Data Percent cell count reference ranges are not reported, since discordance with absolute values may lead to misinterpretation of CBC data. Current Interpretive Data was last revised on 2017. Lymphocyte pct 29.2 % [facility] Comment: Interpretive Data Percent cell count reference ranges are not reported, since discordance with absolute values may lead to misinterpretation of CBC data. Current Interpretive Data was last revised on 2017. Monocyte pct 8.8 % [facility] Comment: Interpretive Data Percent cell count reference ranges are not reported, since discordance with absolute values may lead to misinterpretation of CBC data. Current Interpretive Data was last revised on 2017. Eosinophil pct 3.6 % [facility] Comment: Interpretive Data Percent cell count reference ranges are not reported, since discordance with absolute values may lead to misinterpretation of CBC data. Current Interpretive Data was last revised on 2017. Basophil pct 0.3 % [facility] Comment: Interpretive Data Percent cell count reference ranges are not reported, since discordance with absolute values may lead to misinterpretation of CBC data. Current Interpretive Data was last revised on 2017. Blood 03/13/2023 10:1 4 PM CDT 03/13/2023 11:25 PM CDT Josephine JARAMILLO LAB BLOOD ORDERABLES Shilpi l Result [facility] [place] [address] * (ABNORMAL) Basic metabolic panel (03/13/2023 10:14 PM CDT) Sodium 139 135 - 145 mmol/L [facility] Potassium, pl 3.8 3.3 - 4.9 mmol/L [facility] Chloride 97 97 - 110 mmol/L [facility] CO2 34(H) 22 - 32 mmol/L [facility] Anion gap 8 2 - 15 mmol/L [facility] BUN 5(L) 6 - 25 mg/dL [facility] Creatinine 0.71(L) 0.80 - 1.30 mg/dL [facility] Glucose 147 70 - 199 mg/dL [facility] Comment: Interpretive Data Fasting glucose [...] 2022. Calcium 8.3(L) 8.5 - 10.3 mg/dL [facility] Blood 03/13/2023 10:1 4 PM CDT 03/13/2023 11:25 PM CDT Josephine JARAMILLO LAB BLOOD ORDERABLES Shilpi montano Result Performing Organization Address [facility] Co de Phone Number [facility] Department [place] [address] * (ABNORMAL) CBC with auto differential (03/13/2023 10:14 PM CDT) Pathologist [facility] WBC 8.7 3.8 - 9.9 K/cumm [facility] Hgb 10.4(L) 13.0 - 17.5 g/dL [facility] Hct 32.5(L) 38.9 - 50.3 % [facility] Plt 202 150 - 400 K/cumm [facility] MPV 9.0(L) 9.1 - 12.3 fL [facility] RBC 3.81(L) 4.30 - 5.80 M/cumm [facility] MCV 85.3 81.3 - 96.4 fL [facility] MCH 27.3 27.1 - 33.3 pg [facility] MCHC 32.0(L) 32.3 - 35.7 g/dL [facility] RDW CV 13.0 11.1 - 14.9 % [facility] RDW SD 40.0 35.7 - 48.1 fL [facility] NRBC abs 0.00 0.00 - 0.01 K/cumm [facility] Blood 03/13/2023 10:1 4 PM CDT 03/13/2023 11:25 PM CDT Josephine JARAMILLO LAB BLOOD ORDERABLES Shilpi montano Result Performing Organization Address City/[facility]/ZIP Co de Phone Number [facility] Department [place] [address] * POCT glucose (03/13/2023 7:53 PM CDT) Glucose, POC 143 70 - 199 mg/dL [facility] Blood 03/13/2023 7:53 PM CDT 03/13/2023 7:53 PM CDT us Neno Lei MD LAB POCT ORDERABLES - DEV ICE Final Result Performing Organization Address [facility] Co de Phone Number [facility] [place] [address] * POCT glucose (03/13/2023 5:37 PM CDT) Glucose, POC 178 70 - 199 mg/dL [facility] Blood 03/13/2023 5:37 PM CDT 03/13/2023 5:37 PM CDT us Neno Lei MD LAB POCT ORDERABLES - DEV ICE Final Result Performing Organization Address [facility] de Phone Number [facility] Department [place] [address] * XR Wrist Left 3 or More [...] Glucose, POC 195 70 - 199 mg/dL [facility] Glucose comment 1 Glu2: RN/MD Notified [facility] Blood 03/13/2023 1:26 PM CDT 03/13/2023 1:26 PM CDT Neno Lei MD LAB POCT ORDERABLES - DEV ICE Final Result Performing Organization Address [facility] Co de Phone Number [facility] [place] [address] * POCT glucose (03/13/2023 12:16 PM CDT) Glucose, POC 191 70 - 199 mg/dL [facility] Blood 03/13/2023 12:1 6 PM CDT 03/13/2023 12:16 PM CDT Neno Lei MD LAB POCT ORDERABLES - DEV ICE Final Result Performing Organization Address [facility] Co de Phone Number [facility] Department [place] [address] * POCT glucose (03/13/2023 8:26 AM CDT) Glucose, POC 154 70 - 199 mg/dL [facility] Blood 03/13/2023 8:26 AM CDT 03/13/2023 8:26 AM CDT Neno Lei MD LAB POCT ORDERABLES - DEV ICE Final Result Performing Organization Address City/[facility] Co de Phone Number [facility] [place] [address] * eGFR (03/12/2023 10:44 PM CDT) [facility] eGFR >90 90 - 130 mL/min/1. 73 m2 [facility] Comment: Interpretive Data Reference Interval [...] 4 PM CDT 03/12/2023 11:24 PM CDT us Josephine JARAMILLO LAB BLOOD ORDERABLES Shilpi montano Result Performing Organization Address City/[facility] Co de Phone Number [facility] Department [place] [address] * (ABNORMAL) Differential, auto (03/12/2023 10:44 PM CDT) Neutrophil abs 6.1 1.7 - 6.5 K/cumm [facility] Imm gran abs 0.2(H) 0.0 - 0.1 K/cumm [facility] Lymphocyte abs 2.4 0.8 - 3.3 K/cumm [facility] Monocyte abs 0.7 0.2 - 0.8 K/cumm [facility] Eosinophil abs 0.3 0.0 - 0.5 K/cumm [facility] Basophil abs 0.0 0.0 - 0.1 K/cumm [facility] Neutrophil pct 63.1 % [facility] Comment: Interpretive Data Percent cell count reference ranges are not reported, since discordance with absolute values may lead to misinterpretation of CBC data. Current Interpretive Data was last revised on 2017. Imm gran pct 1.7 % [facility] Comment: Interpretive Data Percent cell count reference ranges are not reported, since discordance with absolute values may lead to misinterpretation of CBC data. Current Interpretive Data was last revised on 2017. Lymphocyte pct 24.9 % [facility] Comment: Interpretive Data Percent cell count reference ranges are not reported, since discordance with absolute values may lead to misinterpretation of CBC data. Current Interpretive Data was last revised on 2017. Monocyte pct 7.1 % [facility] Comment: Interpretive Data Percent cell count reference ranges are not reported, since discordance with absolute values may lead to misinterpretation of CBC data. Current Interpretive Data was last revised on 2017. Eosinophil pct 2.8 % [facility] Comment: Interpretive Data Percent cell count reference ranges are not reported, since discordance with absolute values may lead to misinterpretation of CBC data. Current Interpretive Data was last revised on 2017. Basophil pct 0.4 % [facility] Comment: Interpretive Data Percent cell count reference ranges are not reported, since discordance with absolute values may lead to misinterpretation of CBC data. Current Interpretive Data was last revised on 2017. Blood 03/12/2023 10:4 4 PM CDT 03/12/2023 11:23 PM CDT Josephine JARAMILLO LAB BLOOD ORDERABLES Shilpi l Result [facility] Department [place] [address] * (ABNORMAL) Basic metabolic panel (03/12/2023 10:44 PM CDT) Pathologist [facility] Sodium 136 135 - 145 mmol/L [facility] Potassium, pl 3.8 3.3 - 4.9 mmol/L [facility] Chloride 98 97 - 110 mmol/L [facility] CO2 32 22 - 32 mmol/L [facility] Anion gap 6 2 - 15 mmol/L [facility] BUN 7 6 - 25 mg/dL [facility] Creatinine 0.65(L) 0.80 - 1.30 mg/dL [facility] Glucose 196 70 - 199 mg/dL [facility] Comment: Interpretive Data Fasting glucose [...] 2022. Calcium 8.0(L) 8.5 - 10.3 mg/dL [facility] Blood 03/12/2023 10:4 4 PM CDT 03/12/2023 11:24 PM CDT Josephine JARAMILLO LAB BLOOD ORDERABLES Shilpi l Result [facility] Department [place] [address] * (ABNORMAL) CBC with auto differential (03/12/2023 10:44 PM CDT) Pathologist [facility] WBC 9.7 3.8 - 9.9 K/cumm [facility] Hgb 11.0(L) 13.0 - 17.5 g/dL [facility] Hct 33.8(L) 38.9 - 50.3 % [facility] Plt 226 150 - 400 K/cumm [facility] MPV 8.9(L) 9.1 - 12.3 fL [facility] RBC 4.02(L) 4.30 - 5.80 M/cumm [facility] MCV 84.1 81.3 - 96.4 fL [facility] MCH 27.4 27.1 - 33.3 pg [facility] MCHC 32.5 32.3 - 35.7 g/dL [facility] RDW CV 12.7 11.1 - 14.9 % [facility] RDW SD 38.6 35.7 - 48.1 fL [facility] NRBC abs 0.00 0.00 - 0.01 K/cumm [facility] Blood 03/12/2023 10:4 4 PM CDT 03/12/2023 11:23 PM CDT Josephine JARAMILLO LAB BLOOD ORDERABLES Shilpi l Result [facility] [place] [address] * Type and screen (03/12/2023 10:44 PM CDT) Keenan, indirect Negative [facility] ABO Rh B Negative [facility] Blood 03/12/2023 10:4 4 PM CDT 03/12/2023 11:12 PM CDT Narrative [facility] - 03/13/2023 12:37 AM CDT Has the patient had Daratumumab or Isatuximab in the past 6 months?->Unknown Matheus JARAMILLO LAB BLOOD BANK TEST ORDERAB LES Final Result [facility] [address] * POCT glucose (03/12/2023 8:38 PM CDT) Glucose, POC 180 70 - 199 mg/dL [facility] Blood 03/12/2023 8:38 PM CDT 03/12/2023 8:38 PM CDT Neno Lei MD LAB POCT ORDERABLES - DEV ICE Final Result Performing Organization Address City/[facility]/[place] [address] * POCT glucose (03/12/2023 4:56 PM CDT) Glucose, POC 174 70 - 199 mg/dL [facility] Blood 03/12/2023 4:56 PM CDT 03/12/2023 4:56 PM CDT Neno Lei MD LAB POCT ORDERABLES - DEV ICE Final Result Performing Organization Address City/[facility]/[place] [address] * POCT glucose (03/12/2023 3:12 PM CDT) Glucose, POC 166 70 - 199 mg/dL [facility] Blood 03/12/2023 3:12 PM CDT 03/12/2023 3:12 PM CDT us Neno Lei MD LAB POCT ORDERABLES - DEV ICE Final Result Performing Organization Address City/[facility]/[place] [address] * POCT glucose (03/12/2023 1:22 PM CDT) Glucose, POC 156 70 - 199 mg/dL [facility] Blood 03/12/2023 1:22 PM CDT 03/12/2023 1:22 PM CDT Result [facility] Neno Lei MD LAB POCT ORDERABLES - DEV ICE Final Result Performing Organization Address [facility] Co de Phone Number [facility] [place] [address] * POCT glucose (03/12/2023 9:26 AM CDT) Glucose, POC 141 70 - 199 mg/dL [facility] Blood 03/12/2023 9:26 AM CDT 03/12/2023 9:26 AM CDT Neno Lei MD LAB POCT ORDERABLES - DEV ICE Final Result Performing Organization Address [facility] de Phone Number [facility] [place] [address] * POCT glucose (03/12/2023 7:43 AM CDT) Glucose, POC 169 70 - 199 mg/dL [facility] Blood 03/12/2023 7:43 AM CDT 03/12/2023 7:43 AM CDT Neno Lei MD LAB POCT ORDERABLES - DEV ICE Final Result Performing Organization Address [facility] de Phone Number [facility] [place] [address] * eGFR (03/11/2023 10:31 PM CDT) eGFR >90 90 - 130 mL/min/1. 73 m2 [facility] Comment: Interpretive Data Reference Interval [...] JARAMILLO LAB BLOOD ORDERABLES Shilpi montano Result [facility] [place] [address] * (ABNORMAL) Differential, auto (03/11/2023 10:31 PM CDT) Pathologist [facility] Neutrophil abs 4.6 1.7 - 6.5 K/cumm [facility] Imm gran abs 0.2(H) 0.0 - 0.1 K/cumm [facility] Lymphocyte abs 3.0 0.8 - 3.3 K/cumm [facility] Monocyte abs 0.7 0.2 - 0.8 K/cumm [facility] Eosinophil abs 0.3 0.0 - 0.5 K/cumm [facility] Basophil abs 0.0 0.0 - 0.1 K/cumm [facility] Neutrophil pct 52.0 % [facility] Comment: Interpretive Data Percent cell count reference ranges are not reported, since discordance with absolute values may lead to misinterpretation of CBC data. Current Interpretive Data was last revised on 2017. Imm gran pct 2.4 % [facility] Comment: Interpretive Data Percent cell count reference ranges are not reported, since discordance with absolute values may lead to misinterpretation of CBC data. Current Interpretive Data was last revised on 2017. Lymphocyte pct 33.8 % [facility] Comment: Interpretive Data Percent cell count reference ranges are not reported, since discordance with absolute values may lead to misinterpretation of CBC data. Current Interpretive Data was last revised on 2017. Monocyte pct 8.0 % [facility] Comment: Interpretive Data Percent cell count reference ranges are not reported, since discordance with absolute values may lead to misinterpretation of CBC data. Current Interpretive Data was last revised on 2017. Eosinophil pct 3.3 % [facility] Comment: Interpretive Data Percent cell count reference ranges are not reported, since discordance with absolute values may lead to misinterpretation of CBC data. Current Interpretive Data was last revised on 2017. Basophil pct 0.5 % [facility] Comment: Interpretive Data Percent cell count reference ranges are not reported, since discordance with absolute values may lead to misinterpretation of CBC data. Current Interpretive Data was last revised on 2017. Blood 03/11/2023 10:3 1 PM CDT 03/11/2023 11:57 PM CDT us Josephine JARAMILLO LAB BLOOD ORDERABLES Shilpi l Result [facility] [place] [address] * (ABNORMAL) Basic metabolic panel (03/11/2023 10:31 PM CDT) Sodium 140 135 - 145 mmol/L [facility] Potassium, pl 3.8 3.3 - 4.9 mmol/L [facility] Chloride 101 97 - 110 mmol/L [facility] CO2 33(H) 22 - 32 mmol/L [facility] Anion gap 6 2 - 15 mmol/L [facility] BUN 8 6 - 25 mg/dL [facility] Creatinine 0.64(L) 0.80 - 1.30 mg/dL [facility] Glucose 176 70 - 199 mg/dL [facility] Comment: Interpretive Data Fasting glucose [...] 2022. Calcium 8.1(L) 8.5 - 10.3 mg/dL [facility] Blood 03/11/2023 10:3 1 PM CDT 03/11/2023 11:49 PM CDT Josephine JARAMILLO LAB BLOOD ORDERABLES Shilpi montano Result [facility] Department [place] [address] * (ABNORMAL) CBC with auto differential (03/11/2023 10:31 PM CDT) Pathologist [facility] WBC 8.8 3.8 - 9.9 K/cumm [facility] Hgb 11.2(L) 13.0 - 17.5 g/dL [facility] Hct 34.8(L) 38.9 - 50.3 % [facility] Plt 248 150 - 400 K/cumm [facility] MPV 8.9(L) 9.1 - 12.3 fL [facility] RBC 4.07(L) 4.30 - 5.80 M/cumm [facility] MCV 85.5 81.3 - 96.4 fL [facility] MCH 27.5 27.1 - 33.3 pg [facility] MCHC 32.2(L) 32.3 - 35.7 g/dL [facility] RDW CV 12.9 11.1 - 14.9 % [facility] RDW SD 39.5 35.7 - 48.1 fL [facility] NRBC abs 0.00 0.00 - 0.01 K/cumm [facility] Blood 03/11/2023 10:3 1 PM CDT 03/11/2023 11:57 PM CDT Josephine JARAMILLO LAB BLOOD ORDERABLES Shilpi l Result Performing Organization Address City/[facility]/ZIP Co de Phone Number [facility] [place] [address] * POCT glucose (03/11/2023 8:17 PM CDT) Glucose, POC 196 70 - 199 mg/dL [facility] Blood 03/11/2023 8:17 PM CDT 03/11/2023 8:17 PM CDT Neno Lei MD LAB POCT ORDERABLES - DEV ICE Final Result [facility] [place] [address] * (ABNORMAL) POCT glucose (03/11/2023 5:25 PM CDT) Glucose, POC 205(H) 70 - 199 mg/dL [facility] Blood 03/11/2023 5:25 PM CDT 03/11/2023 5:25 PM CDT Neno Lei MD LAB POCT ORDERABLES - DEV ICE Final Result Performing Organization Address [facility] de Phone Number [facility] [place] [address] * (ABNORMAL) POCT glucose (03/11/2023 11:51 AM CDT) Glucose, POC 241(H) 70 - 199 mg/dL [facility] Blood 03/11/2023 11:5 1 AM CDT 03/11/2023 11:51 AM CDT us Neno Lei MD LAB POCT ORDERABLES - DEV ICE Final Result Performing Organization Address [facility] de Phone Number [facility] [place] [address] * POCT glucose (03/11/2023 7:38 AM CDT) [facility] Glucose, POC 194 70 - 199 mg/dL [facility] Blood 03/11/2023 7:38 AM CDT 03/11/2023 7:38 AM CDT us Neno Lei MD LAB POCT ORDERABLES - DEV ICE Final Result Performing Organization Address [facility] de Phone Number [facility] [place] [address] * eGFR (03/10/2023 10:22 PM CDT) eGFR >90 90 - 130 mL/min/1. 73 m2 [facility] Comment: Interpretive Data Reference Interval [...] Browne NP LAB BLOOD ORDERABLES Final Result [facility] [place] [address] * (ABNORMAL) CBC without differential (03/10/2023 10:22 PM CDT) WBC 8.8 3.8 - 9.9 K/cumm [facility] Hgb 11.4(L) 13.0 - 17.5 g/dL [facility] Hct 35.0(L) 38.9 - 50.3 % [facility] Plt 270 150 - 400 K/cumm [facility] MPV 8.9(L) 9.1 - 12.3 fL [facility] RBC 4.17(L) 4.30 - 5.80 M/cumm [facility] MCV 83.9 81.3 - 96.4 fL [facility] MCH 27.3 27.1 - 33.3 pg [facility] MCHC 32.6 32.3 - 35.7 g/dL [facility] RDW CV 13.0 11.1 - 14.9 % [facility] RDW SD 39.6 35.7 - 48.1 fL [facility] NRBC abs 0.00 0.00 - 0.01 K/cumm [facility] Blood 03/10/2023 10:2 2 PM CDT 03/11/2023 12:10 AM CDT Marcos Browne [employer] LAB BLOOD ORDERABLES Final Result Performing Organization Address City/[facility]/ZIP Co de Phone Number [facility] [place] [address] * Phosphorus (03/10/2023 10:22 PM CDT) Pathologist [facility] Phosphorus, pl 2.9 2.3 - 4.5 mg/dL [facility] Blood 03/10/2023 10:2 2 PM CDT 03/11/2023 12:10 AM CDT Marcos Browne NP LAB BLOOD ORDERABLES Final Result Performing Organization Address [facility] Co de Phone Number [facility] [place] [address] * Magnesium (03/10/2023 10:22 PM CDT) Magnesium 2.0 1.4 - 2.5 mg/dL [facility] Blood 03/10/2023 10:2 2 PM CDT 03/11/2023 12:10 AM CDT Marcos Browne NP LAB BLOOD ORDERABLES Final Result Performing Organization Address City/[facility] Co de Phone Number [facility] [place] [address] * (ABNORMAL) Basic metabolic panel (03/10/2023 10:22 PM CDT) Sodium 139 135 - 145 mmol/L [facility] Potassium, pl 4.1 3.3 - 4.9 mmol/L [facility] Chloride 101 97 - 110 mmol/L [facility] CO2 31 22 - 32 mmol/L [facility] Anion gap 7 2 - 15 mmol/L [facility] BUN 12 6 - 25 mg/dL [facility] Creatinine 0.68(L) 0.80 - 1.30 mg/dL [facility] Glucose 186 70 - 199 mg/dL [facility] Comment: Interpretive Data Fasting glucose [...] 2022. Calcium 8.3(L) 8.5 - 10.3 mg/dL [facility] Blood 03/10/2023 10:2 2 PM CDT 03/11/2023 12:10 AM CDT us Marcos Browne NP LAB BLOOD ORDERABLES Final Result Performing Organization Address City/[facility]/ZIP Co de Phone Number [facility] [place] [address] * POCT glucose (03/10/2023 10:07 PM CDT) [facility] Glucose, POC 183 70 - 199 mg/dL [facility] Blood 03/10/2023 10:0 7 PM CDT 03/10/2023 10:07 PM CDT us Hans Negron MD LAB POCT ORDERABLES - DEVICE Final Result Performing Organization Address City/[facility]/ZIP Co de Phone Number [facility] [place] [address] * (ABNORMAL) POCT glucose (03/10/2023 5:03 PM CDT) Glucose, POC 209(H) 70 - 199 mg/dL [facility] Blood 03/10/2023 5:03 PM CDT 03/10/2023 5:03 PM CDT us Hans Negron MD LAB POCT ORDERABLES - DEVICE Final Result Performing Organization Address [facility] Co de Phone Number [facility] [place] [address] * POCT glucose (03/10/2023 11:47 AM CDT) Glucose, POC 166 70 - 199 mg/dL [facility] Glucose comment 1 Glu2: RN/MD Notified [facility] Blood 03/10/2023 11:4 7 AM CDT 03/10/2023 11:47 AM CDT us Ursula Ferro MD LAB POCT ORDERABLES - DEVICE F inal Result Performing Organization Address [facility] de Phone Number [facility] [place] [address] * POCT glucose (03/10/2023 8:28 AM CDT) Glucose, POC 141 70 - 199 mg/dL [facility] Blood 03/10/2023 8:28 AM CDT 03/10/2023 8:28 AM CDT us Ursula Ferro MD LAB POCT ORDERABLES - DEVICE F inal Result Performing Organization Address [facility] Co de Phone Number [facility] [place] [address] * (ABNORMAL) Tissue aerobic and anaerobic culture and gram stain Tissue Scrotum (03/10/2023 8:23 AM CDT) Direct Specimen Exam Stain: No polymorphonuclear leukocytes seen. Moderate Gram Positive Cocci [facility] Report Final Report: Few Mixed microorganisms. Includes the following: Rare Destiny glabrata For susceptibility results, refer to accession number [id number] on the scrotum abscess culture from 03/10/2023 (.) [facility] Organism MIXED MICROORGANISMS. [facility] Organism DESTINY GLABRATA [facility] Tissue (Scrotum) 03/10/2023 8:23 AM CDT 03/10/2023 10:51 AM CDT Narrative [facility] - 03/17/2023 7:49 AM CDT Left scrotal tissue Testing performed by [facility] Microbiology Laboratory ([phone]) Specimens submitted from normally sterile body sites [...] MICROBIOLOGY - GEN ERAL ORDERABLES Final Result [facility] [place] [address] * (ABNORMAL) Aerobic and anaerobic culture and gram stain Abscess Scrotum (03/10/2023 8:21 AM CDT) Direct Specimen Exam Stain: Abundant polymorphonuclear leukocytes seen. Abundant Gram Positive Cocci [facility] Report Final Report: Few Mixed Gram-positive microorganisms [...] are needed, please contact the laboratory at [phone]. The Clinical and Laboratory Standards [place] M60 (2nd edition) breakpoints are used for interpretation of minimum inhibitory concentration results. The [employer] Yeast One panel is RESEARCH USE ONLY; it has not been cleared or approved by the U.S. Food and Drug Administration. These results are for informational purposes only. The performance characteristics of this yeast susceptibility method were evaluated by the [facility] Microbiology Laboratory. Interpretive criteria last updated Oct, 2020. * ??* ??* ??* ??* ??* ??* ??* ??* ??* ??* ??* ??* ??* ??* ??* ??* ??* ??* ??*(.) [facility] Organism MIXED GRAM POSITIVE MICROORGANISMS [facility] Organism DESTINY GLABRATA [facility] Abscess (Scrotum) 03/10/2023 8:21 AM CDT 03/10/2023 10:54 AM CDT Narrative [facility] - 03/16/2023 1:06 PM CDT Left Scrotal Abscess Testing performed by [facility] Microbiology Laboratory ([phone]) Specimens submitted from normally sterile body sites [...] ERAL ORDERABLES Final Result [facility] [place] [address] * Critical Care (03/10/2023 7:32 AM CDT) [...] plan with the patient's team and other medical/marketing operations consultant staff. This time was in addition to and separate from care provided by other practitioners on this day of service. ?? Marcos Browne [employer] SUPERVISOR IN CLINIC/BEDSIDE ORDERABL ES Final Result * (ABNORMAL) Differential, auto (03/10/2023 12:14 AM CDT) Neutrophil abs 6.9(H) 1.7 - 6.5 K/cumm [facility] Imm gran abs 0.4(H) 0.0 - 0.1 K/cumm [facility] Lymphocyte abs 2.4 0.8 - 3.3 K/cumm [facility] Monocyte abs 0.8 0.2 - 0.8 K/cumm [facility] Eosinophil abs 0.2 0.0 - 0.5 K/cumm [facility] Basophil abs 0.1 0.0 - 0.1 K/cumm [facility] Neutrophil pct 63.8 % [facility] Comment: Interpretive Data Percent cell count reference ranges are not reported, since discordance with absolute values may lead to misinterpretation of CBC data. Current Interpretive Data was last revised on 2017. Imm gran pct 3.4 % [facility] Comment: Interpretive Data Percent cell count reference ranges are not reported, since discordance with absolute values may lead to misinterpretation of CBC data. Current Interpretive Data was last revised on 2017. Lymphocyte pct 22.3 % [facility] Comment: Interpretive Data Percent cell count reference ranges are not reported, since discordance with absolute values may lead to misinterpretation of CBC data. Current Interpretive Data was last revised on 2017. Monocyte pct 7.8 % [facility] Comment: Interpretive Data Percent cell count reference ranges are not reported, since discordance with absolute values may lead to misinterpretation of CBC data. Current Interpretive Data was last revised on 2017. Eosinophil pct 2.1 % [facility] Comment: Interpretive Data Percent cell count reference ranges are not reported, since discordance with absolute values may lead to misinterpretation of CBC data. Current Interpretive Data was last revised on 2017. Basophil pct 0.6 % [facility] Comment: Interpretive Data Percent cell count reference ranges are not reported, since discordance with absolute values may lead to misinterpretation of CBC data. Current Interpretive Data was last revised on 2017. Blood 03/10/2023 12:1 4 AM CDT 03/10/2023 12:24 AM CDT us Matheus JARAMILLO LAB BLOOD ORDERABLES Final Result [facility] [place] [address] * (ABNORMAL) CBC with auto differential (03/10/2023 12:14 AM CDT) WBC 10.8(H) 3.8 - 9.9 K/cumm [facility] Hgb 11.2(L) 13.0 - 17.5 g/dL [facility] Hct 33.8(L) 38.9 - 50.3 % [facility] Plt 328 150 - 400 K/cumm [facility] MPV 9.1 9.1 - 12.3 fL [facility] RBC 4.05(L) 4.30 - 5.80 M/cumm [facility] MCV 83.5 81.3 - 96.4 fL [facility] MCH 27.7 27.1 - 33.3 pg [facility] MCHC 33.1 32.3 - 35.7 g/dL [facility] RDW CV 12.9 11.1 - 14.9 % [facility] RDW SD 39.2 35.7 - 48.1 fL [facility] NRBC abs 0.00 0.00 - 0.01 K/cumm [facility] Blood 03/10/2023 12:1 4 AM CDT 03/10/2023 12:24 AM CDT us Matheus JARAMILLO LAB BLOOD ORDERABLES Final Result [facility] [place] [address] * eGFR (03/09/2023 9:42 PM CDT) eGFR >90 90 - 130 mL/min/1. 73 m2 [facility] Comment: Interpretive Data Reference Interval [...] JARAMILLO LAB BLOOD ORDERABLES Final Result [facility] [place] [address] * (ABNORMAL) Diabetes Mellitus Type 1 Evaluation (03/09/2023 9:42 PM CDT) Insulin ab 0.00 0.00 - 0.02 nmol/L [facility] Comment: ADDITIONAL INFORMATION This test was developed and its performance characteristics determined by [facility] in a manner consistent with CLIA requirements. This test has not been cleared or approved by the U.S. Food and Drug Administration. GAD65 ab ser 0.31(H) <=0.02 nmol/L [facility] Comment: ADDITIONAL INFORMATION This test was developed and its performance characteristics determined by [facility] in a manner consistent with CLIA requirements. This test has not been cleared or approved by the U.S. Food and Drug Administration. IA-2 Ab 0.00 <=0.02 nmol/L [facility] Comment: ADDITIONAL INFORMATION This test was developed and its performance characteristics determined by [facility] in a manner consistent with CLIA requirements. [...] This test has been modified from the departmental buyer's instructions. Its performance characteristics were determined by [facility] in a manner consistent with CLIA requirements. This test has not been cleared or approved by the U.S. Food and Drug Administration. Test Performed by: [address] [address] Twx Operator: Maxx Rollins M.D. Ph.D.; CLIA# [id number] Blood 03/09/2023 9:42 PM CDT 03/10/2023 9:15 AM CDT us Ursula Ferro MD LAB BLOOD ORDERABLES Final Res ult Performing Organization Address [facility] Co de Phone Number [facility] [place] [address] * (ABNORMAL) PTH (03/09/2023 9:42 PM CDT) PTH 12(L) 15 - 65 pg/mL [facility] Blood 03/09/2023 9:42 PM CDT 03/09/2023 9:54 PM CDT us Matheus JARAMILLO LAB BLOOD ORDERABLES Final Result Performing Organization Address [facility] Phone Number [facility] [place] [address] * Phosphorus (03/09/2023 9:42 PM CDT) Phosphorus, pl 2.8 2.3 - 4.5 mg/dL [facility] Blood 03/09/2023 9:42 PM CDT 03/09/2023 9:52 PM CDT Matheus JARAMILLO LAB BLOOD ORDERABLES Final Result Performing Organization Address [facility] de Phone Number [facility] [place] [address] * Magnesium (03/09/2023 9:42 PM CDT) Magnesium 1.7 1.4 - 2.5 mg/dL [facility] Blood 03/09/2023 9:42 PM CDT 03/09/2023 9:52 PM CDT us Matheus JARAMILLO LAB BLOOD ORDERABLES Final Result [facility] [place] [address] * (ABNORMAL) Comprehensive metabolic panel (03/09/2023 9:42 PM CDT) Sodium 137 135 - 145 mmol/L [facility] Potassium, pl 4.2 3.3 - 4.9 mmol/L [facility] Chloride 101 97 - 110 mmol/L [facility] CO2 28 22 - 32 mmol/L [facility] Anion gap 8 2 - 15 mmol/L [facility] BUN 11 6 - 25 mg/dL [facility] Creatinine 0.56(L) 0.80 - 1.30 mg/dL [facility] Glucose 184 70 - 199 mg/dL [facility] Comment: Interpretive Data Fasting glucose [...] 2022. Calcium 8.5 8.5 - 10.3 mg/dL [facility] Bilirubin, total 0.2 0.1 - 1.2 mg/dL [facility] Protein, pl 5.4(L) 6.5 - 8.5 g/dL [facility] Albumin 2.2(L) 3.5 - 5.0 g/dL [facility] Alk phos 100 40 - 130 Units/L [facility] ALT 16 7 - 55 Units/L [facility] AST 25 10 - 50 Units/L [facility] Blood 03/09/2023 9:42 PM CDT 03/09/2023 9:52 PM CDT Matheus JARAMILLO LAB BLOOD ORDERABLES Final Result Performing Organization Address [facility] de Phone Number [facility] [place] [address] * POCT glucose (03/09/2023 9:15 PM CDT) Glucose, POC 186 70 - 199 mg/dL [facility] Blood 03/09/2023 9:15 PM CDT 03/09/2023 9:15 PM CDT us Ursula Ferro MD LAB POCT ORDERABLES - DEVICE F inal Result Performing Organization Address [facility] de Phone Number [facility] [place] [address] * Calcium, ionized, whole blood (03/09/2023 9:07 PM CDT) Ca, ionized, bld 4.86 4.50 - 5.10 mg/dL [facility] Blood 03/09/2023 9:07 PM CDT 03/09/2023 9:43 PM CDT us Matheus JARAMILLO LAB BLOOD ORDERABLES Final Result Performing Organization Address [facility] de Phone Number [facility] [place] [address] * Critical Care (03/09/2023 8:22 PM CDT) [...] plan with the patient's team and other medical/marketing operations consultant staff. This time was in addition to and separate from care provided by other practitioners on this day of service. ?? us Matheus JARAMILLO IN CLINIC/BEDSIDE ORDERABLE S Final Result * POCT glucose (03/09/2023 4:55 PM CDT) Glucose, POC 189 70 - 199 mg/dL [facility] Blood 03/09/2023 4:55 PM CDT 03/09/2023 4:55 PM CDT Ursula Ferro MD LAB POCT ORDERABLES - DEVICE F inal Result Performing Organization Address [facility] de Phone Number [facility] [place] [address] * POCT glucose (03/09/2023 11:26 AM CDT) Glucose, POC 194 70 - 199 mg/dL [facility] Blood 03/09/2023 11:2 6 AM CDT 03/09/2023 11:26 AM CDT Ursula Ferro MD LAB POCT ORDERABLES - DEVICE F inal Result Performing Organization Address [facility] de Phone Number [facility] [place] [address] * Critical Care (03/09/2023 7:52 AM CDT) [...] plan with the patient's team and other medical/marketing operations consultant staff. This time was in addition to and separate from care provided by other practitioners on this day of service. ?? us Marcos Browne NP IN CLINIC/BEDSIDE ORDERABL ES Final Result * POCT glucose (03/09/2023 7:34 AM CDT) Glucose, POC 181 70 - 199 mg/dL [facility] Blood 03/09/2023 7:34 AM CDT 03/09/2023 7:34 AM CDT Ursula Ferro MD LAB POCT ORDERABLES - DEVICE F inal Result Performing Organization Address [facility]/ZIP Co de Phone Number [facility] [place] [address] * POCT glucose (03/09/2023 3:29 AM CDT) Glucose, POC 182 70 - 199 mg/dL [facility] Blood 03/09/2023 3:29 AM CDT 03/09/2023 3:29 AM CDT Ursula Ferro MD LAB POCT ORDERABLES - DEVICE F inal Result Performing Organization Address City/[facility]/ZIP Co de Phone Number [facility] [place] [address] * POCT glucose (03/09/2023 12:06 AM CDT) Glucose, POC 187 70 - 199 mg/dL [facility] Blood 03/09/2023 12:0 6 AM CDT 03/09/2023 12:06 AM CDT Ursula Ferro MD LAB POCT ORDERABLES - DEVICE F inal Result [facility] [place] [address] * Critical Care (03/08/2023 10:30 PM CDT) [...] plan with the patient's team and other medical/marketing operations consultant staff. This time was in addition [...] Result * eGFR (03/08/2023 8:59 PM CDT) [facility] eGFR >90 90 - 130 mL/min/1. 73 [...] ORDERABL ES Final Result Performing Organization Address City/[facility]/ZIP Co de Phone Number [facility] [place] [address] * (ABNORMAL) Vitamin D 25 hydroxy (03/08/2023 8:59 PM CDT) Vitamin D 25-OH <6(L) 30 - 80 ng/mL [facility] Blood 03/08/2023 8:59 PM CDT 03/08/2023 9:07 PM CDT us Ursula Ferro MD LAB BLOOD ORDERABLES Final Res ult Performing Organization Address City/[facility]/ZIP Co de Phone Number [facility] [place] [address] * (ABNORMAL) CBC without differential (03/08/2023 8:59 PM CDT) Pathologist [facility] WBC 10.9(H) 3.8 - 9.9 K/cumm [facility] Hgb 10.5(L) 13.0 - 17.5 g/dL [facility] Hct 32.9(L) 38.9 - 50.3 % [facility] Plt 302 150 - 400 K/cumm [facility] MPV 9.0(L) 9.1 - 12.3 fL [facility] RBC 3.91(L) 4.30 - 5.80 M/cumm [facility] MCV 84.1 81.3 - 96.4 fL [facility] MCH 26.9(L) 27.1 - 33.3 pg [facility] MCHC 31.9(L) 32.3 - 35.7 g/dL [facility] RDW CV 13.3 11.1 - 14.9 % [facility] RDW SD 40.9 35.7 - 48.1 fL [facility] NRBC abs 0.00 0.00 - 0.01 K/cumm [facility] Blood 03/08/2023 8:59 PM CDT 03/08/2023 9:09 PM CDT Mckayla Iyer NP LAB BLOOD ORDERABL ES Final Result [facility] [place] [address] * (ABNORMAL) Basic metabolic panel (03/08/2023 8:59 PM CDT) Pathologist [facility] Sodium 138 135 - 145 mmol/L [facility] Potassium, pl 4.0 3.3 - 4.9 mmol/L [facility] Chloride 103 97 - 110 mmol/L [facility] CO2 26 22 - 32 mmol/L [facility] Anion gap 9 2 - 15 mmol/L [facility] BUN 10 6 - 25 mg/dL [facility] Creatinine 0.60(L) 0.80 - 1.30 mg/dL [facility] Glucose 215(H) 70 - 199 mg/dL [facility] Comment: Interpretive Data Fasting glucose [...] 2022. Calcium 8.0(L) 8.5 - 10.3 mg/dL [facility] Blood 03/08/2023 8:59 PM CDT 03/08/2023 9:07 PM CDT Mckayla Iyer NP LAB BLOOD ORDERABL ES Final Result [facility] [place] [address] * POCT glucose (03/08/2023 7:34 PM CDT) Glucose, POC 194 70 - 199 mg/dL [facility] Blood 03/08/2023 7:34 PM CDT 03/08/2023 7:34 PM CDT us Ursula Ferro MD LAB POCT ORDERABLES - DEVICE F inal Result [facility] [place] [address] * POCT glucose (03/08/2023 4:39 PM CDT) Glucose, POC 152 70 - 199 mg/dL [facility] Blood 03/08/2023 4:39 PM CDT 03/08/2023 4:39 PM CDT us Ursula Ferro MD LAB POCT ORDERABLES - DEVICE F inal Result Performing Organization Address [facility] de Phone Number [facility] [place] [address] * POCT glucose (03/08/2023 12:03 PM CDT) Glucose, POC 155 70 - 199 mg/dL [facility] Blood 03/08/2023 12:0 3 PM CDT 03/08/2023 12:03 PM CDT us Ursula Ferro MD LAB POCT ORDERABLES - DEVICE F inal Result Performing Organization Address [facility] de Phone Number [facility] [place] [address] * POCT glucose (03/08/2023 9:58 AM CDT) Glucose, POC 147 70 - 199 mg/dL [facility] Blood 03/08/2023 9:58 AM CDT 03/08/2023 9:58 AM CDT us Ursula Ferro MD LAB POCT ORDERABLES - DEVICE F inal Result Performing Organization Address [facility] de Phone Number [facility] [place] [address] * POCT glucose (03/08/2023 9:06 AM CDT) Glucose, POC 142 70 - 199 mg/dL [facility] Blood 03/08/2023 9:06 AM CDT 03/08/2023 9:06 AM CDT us Ursula Ferro MD LAB POCT ORDERABLES - DEVICE F inal Result Performing Organization Address [facility] de Phone Number [facility] [place] [address] * Critical Care (03/08/2023 8:55 AM CDT) [...] plan with the patient's team and other medical/marketing operations consultant staff. This time was in addition to and separate from care provided by other practitioners on this day of service. ?? us Mckayla Iyer NP IN CLINIC/BEDSIDE ORDERABLES Final Result * POCT glucose (03/08/2023 8:03 AM CDT) Glucose, POC 145 70 - 199 mg/dL [facility] Blood 03/08/2023 8:03 AM CDT 03/08/2023 8:03 AM CDT us Ursula Ferro MD LAB POCT ORDERABLES - DEVICE F inal Result Performing Organization Address [facility]/ZIP Co de Phone Number [facility] [place] [address] * POCT glucose (03/08/2023 6:59 AM CDT) Glucose, POC 146 70 - 199 mg/dL [facility] Blood 03/08/2023 6:59 AM CDT 03/08/2023 6:59 AM CDT Ursula Ferro MD LAB POCT ORDERABLES - DEVICE F inal Result Performing Organization Address [facility] de Phone Number [facility] [place] [address] * Vancomycin level random (03/08/2023 5:31 AM CDT) Vancomycin random 18.9 mcg/mL [facility] Comment: Interpretive Data No reference ranges have been established for random drug levels. Current Interpretive Data was last revised on 2020. Blood 03/08/2023 5:31 AM CDT 03/08/2023 6:26 AM CDT Matheus JARAMILLO LAB BLOOD ORDERABLES Final Result Performing Organization Address [facility] de Phone Number [facility] [place] [address] * (ABNORMAL) Diabetes Mellitus Type 1 Evaluation (03/08/2023 5:31 AM CDT) Insulin ab 0.00 0.00 - 0.02 nmol/L [facility] Comment: ADDITIONAL INFORMATION This test was developed and its performance characteristics determined by [facility] in a manner consistent with CLIA requirements. This test has not been cleared or approved by the U.S. Food and Drug Administration. GAD65 ab ser 0.32(H) <=0.02 nmol/L [facility] Comment: ADDITIONAL INFORMATION This test was developed and its performance characteristics determined by [facility] in a manner consistent with CLIA requirements. This test has not been cleared or approved by the U.S. Food and Drug Administration. IA-2 Ab 0.00 <=0.02 nmol/L [facility] Comment: ADDITIONAL INFORMATION This test was developed and its performance characteristics determined by [facility] in a manner consistent with CLIA requirements. [...] This test has been modified from the departmental buyer's instructions. Its performance characteristics were determined by [facility] in a manner consistent with CLIA requirements. This test has not been cleared or approved by the U.S. Food and Drug Administration. Test Performed by: [facility] [place] [address] Twx Operator: Maxx Rollins M.D. Ph.D.; CLIA# [id number] Blood 03/08/2023 5:31 AM CDT 03/08/2023 6:25 AM CDT Matheus JARAMILLO LAB BLOOD ORDERABLES Final Result Performing Organization Address City/[facility] Co de Phone Number [facility] [place] [address] * C-peptide (03/08/2023 5:31 AM CDT) Pathologist [facility] C-peptide 2.24 1.10 - 4.40 ng/mL [facility] Blood 03/08/2023 5:31 AM CDT 03/08/2023 6:25 AM CDT Matheus JARAMILLO LAB BLOOD ORDERABLES Final Result Performing Organization Address [facility] Co de Phone Number [facility] [place] [address] * (ABNORMAL) Glutamic acid decarboxylase (03/08/2023 5:31 AM CDT) GAD65 ab ser 0.33(H) <=0.02 nmol/L [facility] Comment: The following antibody was [...] developed and its performance characteristics determined by [facility] in a manner consistent with CLIA requirements. This test has not been cleared or approved by the U.S. Food and Drug Administration. Test Performed by: [facility] [place] [address] Twx Operator: Maxx Rollins M.D. Ph.D.; CLIA# [id number] Blood 03/08/2023 5:31 AM CDT 03/08/2023 6:25 AM CDT Matheus JARAMILLO LAB BLOOD ORDERABLES Final Result Performing Organization Address [facility] de Phone Number [facility] [place] [address] * POCT glucose (03/08/2023 5:19 AM CDT) Glucose, POC 171 70 - 199 mg/dL [facility] Blood 03/08/2023 5:19 AM CDT 03/08/2023 5:19 AM CDT Ursula Ferro MD LAB POCT ORDERABLES - DEVICE F inal Result Performing Organization Address [facility] Co de Phone Number [facility] [place] [address] * POCT glucose (03/08/2023 2:56 AM CDT) Glucose, POC 152 70 - 199 mg/dL [facility] Blood 03/08/2023 2:56 AM CDT 03/08/2023 2:56 AM CDT Ursula Ferro MD LAB POCT ORDERABLES - DEVICE F inal Result Performing Organization Address [facility] [place] [address] * POCT glucose (03/08/2023 12:51 AM CDT) Glucose, POC 137 70 - 199 mg/dL [facility] Blood 03/08/2023 12:5 1 AM CDT 03/08/2023 12:51 AM CDT Carmen Monte MD LAB POCT ORDERABLES - DEVICE Final Result Performing Organization Address [facility] Co de Phone Number [facility] [place] [address] * POCT glucose (03/07/2023 10:43 PM CDT) Glucose, POC 125 70 - 199 mg/dL [facility] Blood 03/07/2023 10:4 3 PM CDT 03/07/2023 10:43 PM CDT Carmen Monte MD LAB POCT ORDERABLES - DEVICE Final Result Performing Organization Address [facility] Co de Phone Number [facility] [place] [address] * Critical Care (03/07/2023 9:04 PM CDT) [...] plan with the patient's team and other medical/marketing operations consultant staff. This time was in addition [...] * POCT glucose (03/07/2023 8:29 PM CDT) Pathologist [facility] Glucose, POC 129 70 - 199 mg/dL [facility] Blood 03/07/2023 8:29 PM CDT 03/07/2023 8:29 PM CDT Carmen Motne MD LAB POCT ORDERABLES - DEVICE Final Result [facility] [place] [address] * eGFR (03/07/2023 8:27 PM CDT) Pathologist [facility] eGFR >90 90 - 130 mL/min/1. 73 m2 [facility] Comment: Interpretive Data Reference Interval [...] Matheus JARAMILLO LAB BLOOD ORDERABLES Final Result [facility] [place] [address] * (ABNORMAL) Differential, auto (03/07/2023 8:27 PM CDT) Neutrophil abs 10.1(H) 1.7 - 6.5 K/cumm [facility] Imm gran abs 0.3(H) 0.0 - 0.1 K/cumm [facility] Lymphocyte abs 2.5 0.8 - 3.3 K/cumm [facility] Monocyte abs 1.3(H) 0.2 - 0.8 K/cumm [facility] Eosinophil abs 0.2 0.0 - 0.5 K/cumm [facility] Basophil abs 0.1 0.0 - 0.1 K/cumm [facility] Neutrophil pct 69.8 % [facility] Comment: Interpretive Data Percent cell count reference ranges are not reported, since discordance with absolute values may lead to misinterpretation of CBC data. Current Interpretive Data was last revised on 2017. Imm gran pct 2.1 % [facility] Comment: Interpretive Data Percent cell count reference ranges are not reported, since discordance with absolute values may lead to misinterpretation of CBC data. Current Interpretive Data was last revised on 2017. Lymphocyte pct 17.3 % [facility] Comment: Interpretive Data Percent cell count reference ranges are not reported, since discordance with absolute values may lead to misinterpretation of CBC data. Current Interpretive Data was last revised on 2017. Monocyte pct 8.8 % [facility] Comment: Interpretive Data Percent cell count reference ranges are not reported, since discordance with absolute values may lead to misinterpretation of CBC data. Current Interpretive Data was last revised on 2017. Eosinophil pct 1.5 % [facility] Comment: Interpretive Data Percent cell count reference ranges are not reported, since discordance with absolute values may lead to misinterpretation of CBC data. Current Interpretive Data was last revised on 2017. Basophil pct 0.5 % [facility] Comment: Interpretive Data Percent cell count reference ranges are not reported, since discordance with absolute values may lead to misinterpretation of CBC data. Current Interpretive Data was last revised on 2017. Blood 03/07/2023 8:27 PM CDT 03/07/2023 8:56 PM CDT Matheus JARAMILLO LAB BLOOD ORDERABLES Final Result Performing Organization Address City/[facility]/ZIP Co de Phone Number [facility] [place] [address] * (ABNORMAL) Calcium, ionized, whole blood (03/07/2023 8:27 PM CDT) Pathologist [facility] Ca, ionized, bld 4.34(L) 4.50 - 5.10 mg/dL [facility] Blood 03/07/2023 8:27 PM CDT 03/07/2023 8:41 PM CDT Matheus JARAMILLO LAB BLOOD ORDERABLES Final Result [facility] [place] [address] * (ABNORMAL) CBC with auto differential (03/07/2023 8:27 PM CDT) WBC 14.5(H) 3.8 - 9.9 K/cumm [facility] Hgb 10.3(L) 13.0 - 17.5 g/dL [facility] Hct 32.4(L) 38.9 - 50.3 % [facility] Plt 297 150 - 400 K/cumm [facility] MPV 9.0(L) 9.1 - 12.3 fL [facility] RBC 3.80(L) 4.30 - 5.80 M/cumm [facility] MCV 85.3 81.3 - 96.4 fL [facility] MCH 27.1 27.1 - 33.3 pg [facility] MCHC 31.8(L) 32.3 - 35.7 g/dL [facility] RDW CV 13.6 11.1 - 14.9 % [facility] RDW SD 42.5 35.7 - 48.1 fL [facility] NRBC abs 0.00 0.00 - 0.01 K/cumm [facility] Blood 03/07/2023 8:27 PM CDT 03/07/2023 8:56 PM CDT Matheus JARAMILLO LAB BLOOD ORDERABLES Final Result Performing Organization Address [facility] Co de Phone Number [facility] [place] [address] * Magnesium (03/07/2023 8:27 PM CDT) Pathologist [facility] Magnesium 2.5 1.4 - 2.5 mg/dL [facility] Blood 03/07/2023 8:27 PM CDT 03/07/2023 8:56 PM CDT Matheus JARAMILLO LAB BLOOD ORDERABLES Final Result Performing Organization Address City/[facility] Co de Phone Number [facility] Department [place] [address] * Phosphorus (03/07/2023 8:27 PM CDT) Phosphorus, pl 4.1 2.3 - 4.5 mg/dL [facility] Blood 03/07/2023 8:27 PM CDT 03/07/2023 8:56 PM CDT Matheus JARAMILLO LAB BLOOD ORDERABLES Final Result [facility] [place] [address] * (ABNORMAL) Comprehensive metabolic panel (03/07/2023 8:27 PM CDT) Sodium 139 135 - 145 mmol/L [facility] Potassium, pl 3.6 3.3 - 4.9 mmol/L [facility] Chloride 106 97 - 110 mmol/L [facility] CO2 24 22 - 32 mmol/L [facility] Anion gap 9 2 - 15 mmol/L [facility] BUN 14 6 - 25 mg/dL [facility] Creatinine 0.73(L) 0.80 - 1.30 mg/dL [facility] Glucose 136 70 - 199 mg/dL [facility] Comment: Interpretive Data Fasting glucose [...] 2022. Calcium 7.8(L) 8.5 - 10.3 mg/dL [facility] Bilirubin, total 0.3 0.1 - 1.2 mg/dL [facility] Protein, pl 5.3(L) 6.5 - 8.5 g/dL [facility] Albumin 2.1(L) 3.5 - 5.0 g/dL [facility] Alk phos 118 40 - 130 Units/L [facility] ALT 17 7 - 55 Units/L [facility] AST 28 10 - 50 Units/L [facility] Blood 03/07/2023 8:27 PM CDT 03/07/2023 8:56 PM CDT Matheus JARAMILLO LAB BLOOD ORDERABLES Final Result [facility] [place] [address] * POCT glucose (03/07/2023 7:08 PM CDT) Glucose, POC 129 70 - 199 mg/dL [facility] Blood 03/07/2023 7:08 PM CDT 03/07/2023 7:08 PM CDT Carmen Monte MD LAB POCT ORDERABLES - DEVICE Final Result Performing Organization Address City/[facility] Co de Phone Number [facility] [place] [address] * POCT glucose (03/07/2023 5:08 PM CDT) Glucose, POC 133 70 - 199 mg/dL [facility] Blood 03/07/2023 5:08 PM CDT 03/07/2023 5:08 PM CDT Carmen Monte MD LAB POCT ORDERABLES - DEVICE Final Result Performing Organization Address [facility] Co de Phone Number [facility] [place] [address] * eGFR (03/07/2023 4:49 PM CDT) eGFR See Comment 90 - 130 [facility] Comment: Unable to calculate exact result. Interpretive [...] NP LAB BLOOD ORDERABL ES Final Result [facility] [place] [address] * (ABNORMAL) Beta-hydroxybutyrate (03/07/2023 4:49 PM CDT) [facility] Beta-Hydroxybut yrate 0.9(H) 0.0 - 0.5 mmol/L [facility] Blood 03/07/2023 4:49 PM CDT 03/07/2023 4:55 PM CDT Mckayla Iyer NP LAB BLOOD ORDERABL ES Final Result Performing Organization Address [facility] de Phone Number [facility] [place] [address] * Phosphorus (03/07/2023 4:49 PM CDT) Phosphorus, pl See Comment 2.3 - 4.5 mg/dL [facility] Comment: Credited; Hemolyzed Specimen Telephone report made to: Javier TRUJILLO) on 03/07/2023 17:52:34 CDT by KG . Blood 03/07/2023 4:49 PM CDT 03/07/2023 4:55 PM CDT Mckayla Iyer NP LAB BLOOD ORDERABL ES Final Result Performing Organization Address [facility] de Phone Number [facility] [place] [address] * Magnesium (03/07/2023 4:49 PM CDT) Magnesium See Comment 1.4 - 2.5 mg/dL [facility] Comment: Credited; Hemolyzed Specimen Telephone report made to: Javier TRUJILLO) on 03/07/2023 17:52:34 CDT by KG . Blood 03/07/2023 4:49 PM CDT 03/07/2023 4:55 PM CDT Mckayla Iyer NP LAB BLOOD ORDERABL ES Final Result Performing Organization Address [facility] Co de Phone Number [facility] [place] [address] * Basic metabolic panel (03/07/2023 4:49 PM CDT) Sodium See Comment 135 - 145 mmol/L [facility] Comment: Credited; Hemolyzed Specimen Telephone report made to: Javier (RN) on 03/07/2023 17:52:34 CDT by KG . Potassium, pl See Comment 3.3 - 4.9 mmol/L [facility] Comment:Credited; Hemolyzed Specimen Chloride See Comment 97 - 110 mmol/L [facility] Comment:Credited; Hemolyzed Specimen CO2 See Comment 22 - 32 mmol/L [facility] Comment:Credited; Hemolyzed Specimen Anion gap See Comment 2 - 15 mmol/L [facility] Comment:Unable to calculate BUN See Comment 6 - 25 mg/dL [facility] Comment:Credited; Hemolyzed Specimen Creatinine See Comment 0.80 - 1.30 mg/dL [facility] Comment:Credited; Hemolyzed Specimen Glucose See Comment 70 - 199 mg/dL [facility] Comment: Credited; Hemolyzed Specimen Interpretive [...] Calcium See Comment 8.5 - 10.3 mg/dL [facility] Comment:Credited; Hemolyzed Specimen Blood 03/07/2023 4:49 PM CDT 03/07/2023 4:55 PM CDT us Mckayla Iyer NP LAB BLOOD ORDERABL ES Final Result [facility] [place] [address] * POCT glucose (03/07/2023 4:05 PM CDT) Glucose, POC 138 70 - 199 mg/dL [facility] Blood 03/07/2023 4:05 PM CDT 03/07/2023 4:05 PM CDT Carmen Monte MD LAB POCT ORDERABLES - DEVICE Final Result Performing Organization Address [facility] de Phone Number [facility] [place] [address] * POCT glucose (03/07/2023 3:00 PM CDT) Glucose, POC 138 70 - 199 mg/dL [facility] Blood 03/07/2023 3:00 PM CDT 03/07/2023 3:00 PM CDT Carmen Monte MD LAB POCT ORDERABLES - DEVICE Final Result Performing Organization Address [facility] de Phone Number [facility] [place] [address] * POCT glucose (03/07/2023 1:55 PM CDT) Glucose, POC 151 70 - 199 mg/dL [facility] Blood 03/07/2023 1:55 PM CDT 03/07/2023 1:55 PM CDT Carmen Monte MD LAB POCT ORDERABLES - DEVICE Final Result Performing Organization Address [facility] de Phone Number [facility] [place] [address] * eGFR (03/07/2023 12:20 PM CDT) eGFR >90 90 - 130 mL/min/1. 73 m2 [facility] Comment: Interpretive Data Reference Interval [...] ORDERABL ES Final Result Performing Organization Address [facility] Co de Phone Number [facility] [place] [address] * POCT glucose (03/07/2023 12:20 PM CDT) Glucose, POC 142 70 - 199 mg/dL [facility] Blood 03/07/2023 12:2 0 PM CDT 03/07/2023 12:20 PM CDT us Carmen Monte MD LAB POCT ORDERABLES - DEVICE Final Result Performing Organization Address [facility] Co de Phone Number [facility] [place] [address] * (ABNORMAL) Phosphorus (03/07/2023 12:20 PM CDT) [facility] Phosphorus, pl 4.8(H) 2.3 - 4.5 mg/dL [facility] Blood 03/07/2023 12:2 0 PM CDT 03/07/2023 12:35 PM CDT Mckayla Iyer LAB BLOOD ORDERABL ES Final Result Performing Organization Address [facility] [place] [address] * Magnesium (03/07/2023 12:20 PM CDT) [facility] Magnesium 2.5 1.4 - 2.5 mg/dL [facility] Blood 03/07/2023 12:2 0 PM CDT 03/07/2023 12:35 PM CDT Mckayla Iyer LAB BLOOD ORDERABL ES Final Result Performing Organization Address [facility] [place] [address] * (ABNORMAL) Basic metabolic panel (03/07/2023 12:20 PM CDT) [facility] Sodium 139 135 - 145 mmol/L [facility] Potassium, pl 3.3 3.3 - 4.9 mmol/L [facility] Chloride 104 97 - 110 mmol/L [facility] CO2 24 22 - 32 mmol/L [facility] Anion gap 11 2 - 15 mmol/L [facility] BUN 13 6 - 25 mg/dL [facility] Creatinine 0.77(L) 0.80 - 1.30 mg/dL [facility] Glucose 142 70 - 199 mg/dL [facility] Comment: Interpretive Data Fasting glucose [...] 2022. Calcium 8.2(L) 8.5 - 10.3 mg/dL [facility] Blood 03/07/2023 12:2 0 PM CDT 03/07/2023 12:35 PM CDT Mckayla Iyer NP LAB BLOOD ORDERABL ES Final Result Performing Organization Address [facility] Co de Phone Number [facility] [place] [address] * POCT glucose (03/07/2023 10:43 AM CDT) Glucose, POC 115 70 - 199 mg/dL [facility] Blood 03/07/2023 10:4 3 AM CDT 03/07/2023 10:43 AM CDT Carmen WEIR POCT ORDERABLES - DEVICE Final Result [facility] [place] [address] * POCT glucose (03/07/2023 9:35 AM CDT) Glucose, POC 127 70 - 199 mg/dL [facility] Blood 03/07/2023 9:35 AM CDT 03/07/2023 9:35 AM CDT Carmen Monte MD LAB POCT ORDERABLES - DEVICE Final Result [facility] [place] [address] * (ABNORMAL) Basic metabolic panel (03/07/2023 7:57 AM CDT) Pathologist [facility] Sodium 137 135 - 145 mmol/L [facility] Potassium, pl 3.3 3.3 - 4.9 mmol/L [facility] Chloride 100 97 - 110 mmol/L [facility] CO2 25 22 - 32 mmol/L [facility] Anion gap 12 2 - 15 mmol/L [facility] BUN 13 6 - 25 mg/dL [facility] Creatinine 0.74(L) 0.80 - 1.30 mg/dL [facility] Glucose 125 70 - 199 mg/dL [facility] Comment: Interpretive Data Fasting glucose [...] 2022. Calcium 8.1(L) 8.5 - 10.3 mg/dL [facility] Blood 03/07/2023 7:57 AM CDT 03/07/2023 8:11 AM CDT Carmen Monte MD LAB BLOOD ORDERABLES Final Result Performing Organization Address City/[facility]/ZIP Co de Phone Number [facility] [place] [address] * eGFR (03/07/2023 7:57 AM CDT) Pathologist [facility] eGFR >90 90 - 130 mL/min/1. 73 m2 [facility] Comment: Interpretive Data Reference Interval [...] BLOOD ORDERABLES Final Result Performing Organization Address [facility] de Phone Number [facility] [place] [address] * POCT glucose (03/07/2023 7:57 AM CDT) [facility] Glucose, POC 125 70 - 199 mg/dL [facility] Blood 03/07/2023 7:57 AM CDT 03/07/2023 7:57 AM CDT Carmen Monte MD LAB POCT ORDERABLES - DEVICE Final Result Performing Organization Address [facility] de Phone Number [facility] [place] [address] * (ABNORMAL) Beta-hydroxybutyrate (03/07/2023 7:57 AM CDT) Beta-Hydroxybut yrate 1.7(H) 0.0 - 0.5 mmol/L [facility] Blood 03/07/2023 7:57 AM CDT 03/07/2023 8:18 AM CDT Mckayla Iyer NP LAB BLOOD ORDERABL ES Final Result Performing Organization Address [facility] [place] [address] * Insulin antibody (03/07/2023 7:57 AM CDT) Pathologist [facility] Insulin ab 0.01 0.00 - 0.02 nmol/L [facility] Comment: ADDITIONAL INFORMATION This test was developed and its performance characteristics determined by [facility] in a manner consistent with CLIA requirements. This test has not been cleared or approved by the U.S. Food and Drug Administration. Test Performed by: [facility] - [address] [address] [place] Operator: Maxx Rollins M.D. Ph.D.; CLIA# [id number] Blood 03/07/2023 7:57 AM CDT 03/07/2023 8:45 AM CDT Mckayla Iyer NP LAB BLOOD ORDERABL ES Final Result Performing Organization Address [facility] [place] [address] * C-peptide (03/07/2023 7:57 AM CDT) C-peptide 1.84 1.10 - 4.40 ng/mL [facility] Blood 03/07/2023 7:57 AM CDT 03/07/2023 8:11 AM CDT us Mckayla Iyer NP LAB BLOOD ORDERABL ES Final Result [facility] [place] [address] * Critical Care (03/07/2023 7:06 AM CDT) [...] plan with the ICU team and other medical/marketing operations consultant staff, making frequent assessments and decisions [...] Glucose, POC 116 70 - 199 mg/dL [facility] Blood 03/07/2023 6:55 AM CDT 03/07/2023 6:55 AM CDT Carmen Monte MD LAB POCT ORDERABLES - DEVICE Final Result [facility] [place] [address] * POCT glucose (03/07/2023 5:59 AM CDT) Glucose, POC 97 70 - 199 mg/dL [facility] Blood 03/07/2023 5:59 AM CDT 03/07/2023 5:59 AM CDT Carmen Monte MD LAB POCT ORDERABLES - DEVICE Final Result Performing Organization Address City/[facility]/ZIP Co de Phone Number [facility] [place] [address] * POCT glucose (03/07/2023 3:53 AM CDT) Glucose, POC 111 70 - 199 mg/dL [facility] Blood 03/07/2023 3:53 AM CDT 03/07/2023 3:53 AM CDT Carmen Monte MD LAB POCT ORDERABLES - DEVICE Final Result Performing Organization Address City/[facility]/ZIP Co de Phone Number [facility] [place] [address] * POCT glucose (03/07/2023 1:57 AM CDT) Glucose, POC 129 70 - 199 mg/dL [facility] Blood 03/07/2023 1:57 AM CDT 03/07/2023 1:57 AM CDT Carmen Monte MD LAB POCT ORDERABLES - DEVICE Final Result Performing Organization Address City/[facility] Co de Phone Number [facility] [place] [address] * POCT glucose (03/07/2023 1:01 AM CDT) Glucose, POC 132 70 - 199 mg/dL [facility] Blood 03/07/2023 1:01 AM CDT 03/07/2023 1:01 AM CDT Carmen Monte MD LAB POCT ORDERABLES - DEVICE Final Result Performing Organization Address [facility] Co de Phone Number [facility] [place] [address] * POCT glucose (03/06/2023 11:53 PM CDT) Glucose, POC 129 70 - 199 mg/dL [facility] Blood 03/06/2023 11:5 3 PM CDT 03/06/2023 11:53 PM CDT Carmen Monte MD LAB POCT ORDERABLES - DEVICE Final Result Performing Organization Address City/[facility] [place] [address] * POCT glucose (03/06/2023 10:56 PM CDT) Glucose, POC 139 70 - 199 mg/dL [facility] Blood 03/06/2023 10:5 6 PM CDT 03/06/2023 10:56 PM CDT Carmen Monte MD LAB POCT ORDERABLES - DEVICE Final Result Performing Organization Address [facility] Co de Phone Number [facility] [place] [address] * (ABNORMAL) POCT glucose (03/06/2023 9:54 PM CDT) Glucose, POC 249(H) 70 - 199 mg/dL [facility] Blood 03/06/2023 9:54 PM CDT 03/06/2023 9:54 PM CDT Carmen Monte MD LAB POCT ORDERABLES - DEVICE Final Result Performing Organization Address [facility] de Phone Number [facility] [place] [address] * (ABNORMAL) Lipid panel (03/06/2023 9:15 PM CDT) Cholesterol 106 30 - 199 mg/dL [facility] Comment: Interpretive Data Ages < or [...] on 2018. Triglycerides 93 <=149 mg/dL [facility] Comment: Interpretive Data Ages < or [...] on 2018. HDL 20(L) >=40 mg/dL [facility] Comment: Interpretive Data Ages < or [...] 2018. LDL, calculated 67 <=129 mg/dL [facility] Comment: Interpretive Data Ages < or [...] on 2018. Non-HDL Cholesterol 86 mg/dL [facility] Comment: Interpretive Data Ages < or [...] revised on 2018. Chol/HDL ratio 5 [facility] Blood 03/06/2023 9:15 PM CDT 03/06/2023 9:36 PM CDT Carmen Monte MD LAB BLOOD ORDERABLES Final Result [facility] [place] [address] * (ABNORMAL) Hemoglobin A1c (03/06/2023 9:15 PM [...] Monte MD LAB BLOOD ORDERABLES Final Result [facility] [place] [address] * eGFR (03/06/2023 9:15 PM CDT) eGFR >90 90 - 130 mL/min/1. 73 m2 [facility] Comment: Interpretive Data Reference Interval Normal [...] Matheus JARAMILLO LAB BLOOD ORDERABLES Final Result [facility] [place] [address] * (ABNORMAL) Differential, auto (03/06/2023 9:15 PM CDT) Neutrophil abs 16.7(H) 1.7 - 6.5 K/cumm [facility] Imm gran abs 0.4(H) 0.0 - 0.1 K/cumm [facility] Lymphocyte abs 2.1 0.8 - 3.3 K/cumm [facility] Monocyte abs 1.9(H) 0.2 - 0.8 K/cumm [facility] Eosinophil abs 0.1 0.0 - 0.5 K/cumm [facility] Basophil abs 0.1 0.0 - 0.1 K/cumm [facility] Neutrophil pct 78.4 % [facility] Comment: Interpretive Data Percent cell count reference ranges are not reported, since discordance with absolute values may lead to misinterpretation of CBC data. Current Interpretive Data was last revised on 2017. Imm gran pct 1.8 % [facility] Comment: Interpretive Data Percent cell count reference ranges are not reported, since discordance with absolute values may lead to misinterpretation of CBC data. Current Interpretive Data was last revised on 2017. Lymphocyte pct 9.8 % [facility] Comment: Interpretive Data Percent cell count reference ranges are not reported, since discordance with absolute values may lead to misinterpretation of CBC data. Current Interpretive Data was last revised on 2017. Monocyte pct 9.1 % [facility] Comment: Interpretive Data Percent cell count reference ranges are not reported, since discordance with absolute values may lead to misinterpretation of CBC data. Current Interpretive Data was last revised on 2017. Eosinophil pct 0.5 % [facility] Comment: Interpretive Data Percent cell count reference ranges are not reported, since discordance with absolute values may lead to misinterpretation of CBC data. Current Interpretive Data was last revised on 2017. Basophil pct 0.4 % [facility] Comment: Interpretive Data Percent cell count reference ranges are not reported, since discordance with absolute values may lead to misinterpretation of CBC data. Current Interpretive Data was last revised on 2017. Blood 03/06/2023 9:15 PM CDT 03/06/2023 9:35 PM CDT Matheus JARAMILLO LAB BLOOD ORDERABLES Final Result Performing Organization Address [facility]/ZIP Co de Phone Number [facility] [place] [address] * (ABNORMAL) Beta-hydroxybutyrate (03/06/2023 9:15 PM CDT) [facility] Beta-Hydroxybut yrate 0.9(H) 0.0 - 0.5 mmol/L [facility] Blood 03/06/2023 9:15 PM CDT 03/06/2023 9:33 PM CDT Matheus JARAMILLO LAB BLOOD ORDERABLES Final Result Performing Organization Address [facility] Co de Phone Number [facility] [place] [address] * (ABNORMAL) CBC with auto differential (03/06/2023 9:15 PM CDT) Pathologist [facility] WBC 21.3(H) 3.8 - 9.9 K/cumm [facility] Hgb 11.6(L) 13.0 - 17.5 g/dL [facility] Hct 35.8(L) 38.9 - 50.3 % [facility] Plt 348 150 - 400 K/cumm [facility] MPV 9.3 9.1 - 12.3 fL [facility] RBC 4.23(L) 4.30 - 5.80 M/cumm [facility] MCV 84.6 81.3 - 96.4 fL [facility] MCH 27.4 27.1 - 33.3 pg [facility] MCHC 32.4 32.3 - 35.7 g/dL [facility] RDW CV 13.3 11.1 - 14.9 % [facility] RDW SD 41.1 35.7 - 48.1 fL [facility] NRBC abs 0.00 0.00 - 0.01 K/cumm [facility] Blood 03/06/2023 9:15 PM CDT 03/06/2023 9:35 PM CDT us Matheus JARAMILLO LAB BLOOD ORDERABLES Final Result Performing Organization Address City/[facility] Co de Phone Number [facility] [place] [address] * Lactate (03/06/2023 9:15 PM CDT) Lactate 1.9 0.7 - 2.0 mmol/L [facility] Blood 03/06/2023 9:15 PM CDT 03/06/2023 9:37 PM CDT Matheus JARAMILLO LAB BLOOD ORDERABLES Final Result Performing Organization Address City/[facility] Co de Phone Number [facility] [place] [address] * (ABNORMAL) Calcium, ionized (03/06/2023 9:15 PM CDT) Calcium, Ionized 4.15(L) 4.50 - 5.10 mg/dL [facility] Blood 03/06/2023 9:15 PM CDT 03/06/2023 9:33 PM CDT Matheus JARAMILLO LAB BLOOD ORDERABLES Final Result Performing Organization Address City/[facility]/ZIP Co de Phone Number [facility] [place] [address] * Phosphorus (03/06/2023 9:15 PM CDT) [facility] Phosphorus, pl 4.3 2.3 - 4.5 mg/dL [facility] Blood 03/06/2023 9:15 PM CDT 03/06/2023 9:36 PM CDT Matheus JARAMILLO LAB BLOOD [place] [address] * Magnesium (03/06/2023 9:15 PM CDT) [facility] Magnesium 2.0 1.4 - 2.5 mg/dL [facility] Blood 03/06/2023 9:15 PM CDT 03/06/2023 9:36 PM CDT Matheus JARAMILLO LAB BLOOD ORDERABLES Final Result Performing Organization Address City/[facility]/[place] [address] * (ABNORMAL) Comprehensive metabolic panel (03/06/2023 9:15 PM CDT) [facility] Sodium 140 135 - 145 mmol/L [facility] Potassium, pl 3.5 3.3 - 4.9 mmol/L [facility] Chloride 101 97 - 110 mmol/L [facility] CO2 26 22 - 32 mmol/L [facility] Anion gap 13 2 - 15 mmol/L [facility] BUN 14 6 - 25 mg/dL [facility] Creatinine 0.79(L) 0.80 - 1.30 mg/dL [facility] Glucose 217(H) 70 - 199 mg/dL [facility] Comment: Interpretive Data Fasting glucose [...] 2022. Calcium 8.3(L) 8.5 - 10.3 mg/dL [facility] Bilirubin, total 0.4 0.1 - 1.2 mg/dL [facility] Protein, pl 5.9(L) 6.5 - 8.5 g/dL [facility] Albumin 2.4(L) 3.5 - 5.0 g/dL [facility] Alk phos 113 40 - 130 Units/L [facility] ALT 15 7 - 55 Units/L [facility] AST 25 10 - 50 Units/L [facility] Blood 03/06/2023 9:15 PM CDT 03/06/2023 9:36 PM CDT Matheus JARAMILLO LAB BLOOD ORDERABLES Final Result [facility] Department [place] [address] * (ABNORMAL) POCT glucose (03/06/2023 8:59 PM CDT) [facility] Glucose, POC 234(H) 70 - 199 mg/dL [facility] Blood 03/06/2023 8:59 PM CDT 03/06/2023 8:59 PM CDT Carmen Monte MD LAB POCT ORDERABLES - DEVICE Final Result [facility] [place] [address] * (ABNORMAL) POCT glucose (03/06/2023 7:56 PM CDT) [facility] Glucose, POC 238(H) 70 - 199 mg/dL [facility] Blood 03/06/2023 7:56 PM CDT 03/06/2023 7:56 PM CDT us Carmen Monte MD LAB POCT ORDERABLES - DEVICE Final Result Performing Organization Address City/State/[facility] Co de Phone Number [facility] [place] [address] * Critical Care (03/06/2023 7:17 PM CDT) [...] plan with the ICU team and other medical/marketing operations consultant staff, making frequent assessments and decisions [...] Glucose, POC 282(H) 70 - 199 mg/dL [facility] Blood 03/06/2023 6:52 PM CDT 03/06/2023 6:52 PM CDT Carmen Monte MD LAB POCT ORDERABLES - DEVICE Final Result Performing Organization Address City/[facility] Co de Phone Number [facility] [place] [address] * (ABNORMAL) POCT glucose (03/06/2023 6:17 PM CDT) Glucose, POC 269(H) 70 - 199 mg/dL [facility] Blood 03/06/2023 6:17 PM CDT 03/06/2023 6:17 PM CDT Carmen Monte MD LAB POCT ORDERABLES - DEVICE Final Result Performing Organization Address [facility] de Phone Number [facility] [place] [address] * (ABNORMAL) POCT glucose (03/06/2023 5:40 PM CDT) Glucose, POC 277(H) 70 - 199 mg/dL [facility] Blood 03/06/2023 5:40 PM CDT 03/06/2023 5:40 PM CDT Carmen Monte MD LAB POCT ORDERABLES - DEVICE Final Result Performing Organization Address City/[facility] [place] [address] * (ABNORMAL) Aerobic and anaerobic culture and gram stain Abscess Scrotum (03/06/2023 5:26 PM CDT) Direct Specimen Exam Stain: Moderate polymorphonuclear leukocytes seen. Moderate Gram Positive Cocci Moderate Gram Positive Bacilli Moderate Gram Negative Bacilli [facility] Report Final Report: Moderate Streptococcus anginosus For susceptibility results, refer to accession number [id number] on the scrotum tissue culture from 03/06/2023 Few Mixed aerobic and anaerobic microorganisms (.) [facility] Organism STREPTOCOCCUS ANGINOSUS [facility] Organism MIXED AEROBIC AND ANAEROBIC MICROORGANISMS [facility] Abscess (Scrotum) 03/06/2023 5:26 PM CDT 03/06/2023 7:46 PM CDT Narrative [facility] - 03/16/2023 7:53 AM CDT Perineal Abscess #2 for Culture Specimen received on an ESwab. Testing performed by [facility] ([phone]) Specimens submitted from normally sterile body sites [...] us Pilar Johnson MD LAB MICROBIOLOGY - [facility] ORDERABLES Final Result [facility] Department [place] [address] * (ABNORMAL) Tissue aerobic and anaerobic culture and gram stain Tissue Scrotum (03/06/2023 5:18 PM CDT) Direct Specimen Exam Stain: Rare polymorphonuclear leukocytes seen. Abundant Gram Positive Cocci Abundant Gram Negative Bacilli Moderate Gram Positive Bacilli [facility] Report Final Report: Moderate Streptococcus anginosus Few Mixed aerobic and anaerobic microorganisms (.) [facility] Organism STREPTOCOCCUS ANGINOSUS [facility] Organism MIXED AEROBIC AND ANAEROBIC MICROORGANISMS [facility] Tissue (Scrotum) 03/06/2023 5:18 PM CDT 03/06/2023 7:40 PM CDT Narrative [facility] - 03/16/2023 7:52 AM CDT Perineal Tissue for Culture Testing performed by [facility] ([phone]) Specimens submitted from normally sterile body sites [...] MICROBIOLOGY - G ENERAL ORDERABLES Final Result [facility] [place] [address] * (ABNORMAL) Aerobic and anaerobic culture and gram stain Abscess Scrotum (03/06/2023 5:17 PM CDT) Direct Specimen Exam Stain: Abundant polymorphonuclear leukocytes seen. Abundant Gram Positive Cocci Abundant Gram Negative Bacilli Moderate Gram Positive Bacilli [facility] Report Final Report: Abundant Streptococcus anginosus For susceptibility results, refer to accession number [id number] on the scrotum tissue culture from 03/06/2023 Few Mixed aerobic and anaerobic microorganisms (.) [facility] Organism STREPTOCOCCUS ANGINOSUS [facility] Organism MIXED AEROBIC AND ANAEROBIC MICROORGANISMS [facility] Abscess (Scrotum) 03/06/2023 5:17 PM CDT 03/06/2023 7:44 PM CDT Narrative [facility] - 03/16/2023 7:52 AM CDT Perineal Abscess Specimen received in a sterile container. Testing performed by [facility] ([phone]) Specimens submitted from normally sterile body sites [...] AL ORDERABLES Final Result Performing Organization Address City/[facility]/ZIP Co de Phone Number [facility] [place] [address] * (ABNORMAL) POCT glucose (03/06/2023 4:08 PM CDT) [facility] Glucose, POC 298(H) 70 - 199 mg/dL [facility] Blood 03/06/2023 4:08 PM CDT 03/06/2023 4:08 PM CDT Carmen Monte MD LAB POCT ORDERABLES - DEVICE Final Result Performing Organization Address City/[facility] Co de Phone Number [facility] [place] [address] * US Arterial Duplex Lower Extremity Bilateral (03/06/2023 3:21 PM CDT) Anatomical Region Laterality Modality Vascular Bilateral Ultrasound 03/06/2023 1:52 PM CDT Narrative 03/07/2023 12:23 PM CDT [facility] - Department of Vascular Surgery, Vascular Laboratory [address] [place] [address] [place] Lower Extremity Arterial Duplex Report Patient Name: RENE HYATT Sadiq : 1980 Study Date: 03/06/2023 1:52:30 PM [...] ?Units ?Measurement ? Value ?Units ? Rt WELL SHOOTER Dst PSV ?93 ? cm/s ? Lt WELL SHOOTER Dst PSV ?154 ?cm/s ? Rt Profunda [...] ? Left Lower ? - Findings: Performing Air Quality Consultant: Anca Alexis RVT ([place]). Right Common Femoral: [...] Duplex imaging of the bilateral lower extremity point [place] ira arteries reveals patent vessels with no flow [...] Procedure Note Alberto Ching MD - 03/07/2023 [facility] - Department of Vascular Surgery,Vascular Laboratory [address] [place] [address] [place] Lower Extremity Arterial Duplex Report Patient Name: RENE HYATT MPatient ID: [id number] : [id number] Date: 03/06/2023 1:52:30 PM Gender: MAccession #: [id number] Tech: TFLocation: [id number] Ref.Provider: ANIL BIRMINGHAMQuality: Adequate Order Provider: ANIL BIRMINGHAM Procedures: Arterial Report: Bilateral Lower Extremity Arterial Duplex Exam. Indications: Left foot metatarsal base ulcer, and left big toe ulcer, did not know hehas diabetes. Measurements: Right Lower Left Lower Measurement Value Units MeasurementValue Units Rt WELL SHOOTER Dst PSV 93 cm/s Lt WELL SHOOTER Dst [id number] cm/s Rt Profunda Prx PSV 51 cm/s Lt Profunda Prx PSV86 cm/s Rt Superficial Femoral Prx PSV 106 cm/s Lt Superficial FemoralPrx PSV 145 cm/s Rt Superficial Femoral Mid PSV 90 cm/s Lt Superficial FemoralMid PSV 130 cm/s Rt Superficial Femoral Dst PSV 73 cm/s Lt Superficial FemoralDst PSV 86 cm/s Rt Popliteal Artery 90 cm/s Lt Popliteal [id number] cm/s Rt Post Tibial Prx PSV 86 cm/s Lt Post Tibial Prx PSV92 cm/s Rt Post Tibial Mid PSV 96 cm/s Lt Post Tibial Mid PSV97 cm/s Rt Post Tibial Dst PSV 83 cm/s Lt Post Tibial Dst PSV90 cm/s Rt Ant Tibial Prx PSV 77 cm/s Lt Ant Tibial Prx JWO612 cm/s Rt Ant Tibial Mid PSV 73 cm/s Lt Ant Tibial Mid WIU184 cm/s Rt Ant Tibial Dst PSV 75 cm/s Lt Ant Tibial Dst WJP763 cm/s Rt Peroneal Prx PSV 67 cm/s Lt Peroneal Prx PSV76 cm/s Rt Peroneal Mid PSV 54 cm/s Lt Peroneal Mid PSV62 cm/s Rt Peroneal Dst PSV 52 cm/s Lt Peroneal Dst PSV77 cm/s Measurement Value Units MeasurementValue Units Right Lower Left Lower - Findings: Performing Air Quality Consultant: Anca Alexis RVT ([place]). Right Common Femoral: [...] Duplex imaging of the bilateral lower extremity [place] arteries revealspatent vessels with no flow limiting [...] above. Electronically Signed By: Alberto Ching MD [facility] 2023-03-07 12:23:36 CDT CC: CC: us Anil Birmingham MD IMG US PROCEDURES Final Resu lt * US Arterial Doppler Lower Extremity Bilateral (03/06/2023 3:14 PM CDT) Anatomical Region Laterality Modality Vascular Bilateral Ultrasound 03/06/2023 1:53 PM CDT Narrative 03/07/2023 12:41 PM CDT [facility] - Department of Vascular Surgery, Vascular Laboratory [address] [place] [address] Lower Extremity Arterial Doppler Report Patient Name: RENE HYATT M : 1980 Study Date: 03/06/2023 1:53:00 PM Gender: M Tech: Anca Alexis [facility] Location: 2183 Ref.Provider: ANIL BIRMINGHAM [...] Brachial Pressure ? 110 ?mmHg ? Rt ASSEMBLING MACHINE OPERATOR Pressure ?162 ?mmHg ? Lt ASSEMBLING MACHINE OPERATOR Pressure ?158 ?mmHg ? Rt DPA Pressure ?159 ?mmHg ? Lt DPA Pressure ?159 ?mmHg ? Rt 1st Digit Pressure ?>254 ? mmHg ? Lt 1st Digit Pressure ?>254 ? mmHg ? Rt PT MOSES Resting ?NC ?Lt PT MOSES Resting ?NC ? Rt AT OMSES Resting ?NC ?Lt AT MOSES Resting ?NC ? Rt Digit/Arm Index ? NC ?Lt Digit/Arm Index ? NC ? Measurement ?Value ?Units ?Measurement ?Value ?Units ? Right - ?Left - ? - Findings: Performing Air Quality Consultant: Anca Alexis RVT ([place]). Bilateral All Levels [...] MD FACS 2023-03-07 12:41:16 CDT CC: CC: Procedure Note Alberto Ching MD - 03/07/2023 [facility] - Department of Vascular Surgery,Vascular Laboratory [address] [place] [address] Lower Extremity Arterial Doppler Report Patient Name: RENE HYATT MPatient ID: [id number] : [id number] Date: 03/06/2023 1:53:00 PM Gender: MAccession #: [id number] Tech: Kobi Alexisa RvtLocation: 2183 Ref.Provider: ANIL BIRMINGHAMQuality: Adequate Order Provider: ANIL BIRMINGHAM Procedures: Arterial Report: Bilateral lower extremity arterial Doppler exam at rest. Indications: Left foot metatarsal base ulcer, and left big toe ulcer, did not know hehas diabetes, bilateral leg swelling. Measurements: Right - Left - Measurement Value Units Measurement ValueUnits Rt Brachial Pressure 100 mmHg Lt Brachial Pressure 110mmHg Rt ASSEMBLING MACHINE OPERATOR Pressure 162 mmHg Lt ASSEMBLING MACHINE OPERATOR Pressure 158mmHg Rt DPA Pressure 159 mmHg Lt DPA Pressure 159mmHg Rt 1st Digit Pressure >254 mmHg Lt 1st Digit Pressure >254mmHg Rt PT MOSES Resting NC Lt PT MOSES Resting NC Rt AT MOSES Resting NC Lt AT MOSES Resting NC Rt Digit/Arm Index NC Lt Digit/Arm Index NC Measurement Value Units Measurement ValueUnits Right - Left - - Findings: Performing Air Quality Consultant: Anca Alexis RVT ([place]). Bilateral All Levels [...] above. Electronically Signed By: Alberto Ching MD [facility] 2023-03-07 12:41:16 CDT CC: CC: Anil Birmingham MD [facility] US PROCEDURES Final Resu lt * Check Sample (03/06/2023 12:17 PM CDT) Pathologist [facility] ABO Rh B Negative [facility] HCLL OTHER 03/06/2023 12:1 7 PM CDT 03/06/2023 12:43 PM CDT us Carolee Daly MD LAB BLOOD ORDERABLES Shilpi l Result [facility] [place] [address] * [place] CRITICAL CARE ILL/INJURED PATIENT INIT 30-74 MIN [...] Sepsis Lactate 1.8 0.7 - 2.0 mmol/L [facility] Blood 03/06/2023 11:0 2 AM CDT 03/06/2023 11:13 AM CDT Anil Birmingham MD LAB BLOOD ORDERABLES Final [facility] Performing Organization Address [facility] de Phone Number [facility] [place] [address] * (ABNORMAL) Protime-INR (03/06/2023 11:02 AM CDT) Pathologist [facility] PT 18.3(H) 10.3 - 13.7 sec [facility] INR 1.61(H) 0.90 - 1.20 [facility] Comment: Interpretive data Oral anticoagulant [...] R [facility] Performing Organization Address City/[facility] Co de Phone Number [facility] [place] [address] * Type and screen (03/06/2023 11:02 AM CDT) Pathologist [facility] [place], indirect Negative [facility] ABO Rh B Negative [facility] Blood 03/06/2023 11:0 2 AM CDT 03/06/2023 11:17 AM CDT Narrative [facility] - 03/06/2023 12:18 PM CDT Has the patient had Daratumumab or Isatuximab in the past 6 months?->Unknown us Anil Birmingham MD LAB BLOOD BANK TEST ORDERABL ES Final Result [facility] [place] [address] documented in this encounter Visit Diagnoses Diagnosis Scrotal abscess- Primary 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 Scrotal abscess 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 1 diabetes mellitus with ketoacidosis without coma (HCC) Perineal abscess Perineal abscess documented in this encounter Admitting [...] chloride 0.9% irrigation As needed, Starting on 03/07/23 at 1026, Intra-Op Given 03/07/2023 10:26 AM CDT 2,000 mL Surgical Site white petrolatum-mineral oiL (EUCERIN) cream topical, [...] Link RN)1221 (Given - Provider: Marina Washington, RN)1739 (Given - Provider: Marina Washington, ARYAN) 0110 (Not Given - Provider: Annamarie Giron RN - Reason: Patient/family refused)0628 (Given - Provider: Annamarie Giron RN)1149 (Given - Provider: Marina Washington, ARYAN)1816 (Given - Provider: Marina Washington, ARYAN) 0003 (Given - Provider: Yancy Stephenson RN)0521 [...] Link RN)1126 (New Bag - Provider: Gilma Milaln RN)1200 (Stopped - Provider: Marina Washington, ARYAN)1649 (New Bag - Provider: Marina Washington, ARYAN)2200 (New Bag - Provider: Annamarie Giron RN) 0418 (New Bag - Provider: Annamarie Giron, ARYAN)1104 (New Bag - Provider: Marina Washington, ARYAN)1140 (Stopped - Provider: Marina Washington, ARYAN)1644 (New Bag - Provider: Marina Washington, ARYAN)1715 (Stopped - Provider: Marina Washington, ARYAN)2139 (New Bag - Provider: Yancy Stephenson RN) 0442 (New Bag - Provider: Yancy Stephenson, ARYAN)1018 (New Bag - Provider: Clara CarrizalesARYAN)1600 (Due) atorvastatin (LIPITOR) tablet 20 mg 20 mg, oral, Nightly, First dose on Thu03/10/23 at 2215 213 (Given - Provider: Annamarie Giron RN) 2137 (Given - Provider: Yancy Stephenson RN) calcium carbonate (OS-KRISTY) tablet 1,250 mg 1,250 mg (500 mg of elemental calcium), oral, 2 times daily, First dose on Thu03/16/23 at 1330 0918 (Given - Provider: Marina Washington RN)2136 (Given - Provider: Annamarie Giron RN) 951 (Given - Provider: Marina Washington RN)2137 (Given - Provider: Yancy Stephenson RN) 08 (Given - Provider: Clara Carrizales RN) enoxaparin (LOVENOX) syringe 40 mg 40 mg, subcutaneous, Every 12 hours scheduled, First dose (after last modification) on Thu03/09/23 at 0915, Indications: Deep Vein Thrombosis Prevention 19 (Given - Provider: Marina Washington RN)2136 (Given - Provider: Annamarie Giron RN) 951 (Given - Provider: Marina Washington RN)2137 (Given - Provider: Yancy Stephenson RN) 08 (Given - Provider: Clara Carrizales, ARYAN) ergocalciferol (VITAMIN D) capsule 50,000 Units 50,000 Units, oral, 2 times weekly (Once per day on Thu), First dose (after last modification) on Thu03/16/23 at 1345, For 60 days, Do not crush, break, or open. 09 (Given - Provider: Marina Washington RN) insulin [...] Prophylaxis 0918 (Given - Provider: Marina Washington, RN) 0953 (Given - Provider: Marina Washington, RN) 0825 (Given - Provider: Clara Carrizales RN) PRN Medication Order 03/23/2023 03/24/2023 03/25/2023 dextrose [...] WOUND CARE 3 03/23/20232022 IP CONSULT TO CUT OFF WORKER 2 3 03/06/2023 IP CONSULT TO NUTRITION [...] 03/06/2023 documented in this encounter Care Teams Fine Arts Teacher Relationship Specialty Start Date End Date No, Physician PCP - General 03/06/23 03/24/23 documented as of this encounter
== END 2024-05-31 13:25 ==
PROVIDERS: Emergency Provider Student in an Organized Health Care Education/Training Program; PCP Internal Medicine Hematology & Oncology
DX: T82.594A Other mechanical complication of infusion catheter, initial encounter (principal); Y71.1 Therapeutic (nonsurgical) and rehabilitative cardiovascular devices associated with adverse incidents
CPT/HCPCS: 99281

== ENCOUNTER 2024-06-18 19:18 | Emergency (ER) | payer OTHER, SELFPAY ==
--- NOTE | ~2024-06-18 | XR_ITS ---
XR chest PICC line DATE: 06/19/2024 00:52 INDICATION: PICC line check TECHNIQUE: Portable upright AP chest on 06/19/2024 at 0049 hours COMPARISON: 06/30/2019 43 2 view chest FINDINGS: Right upper extremity PIC catheter tip overlies the superior vena cava. Mild infiltrate or atelectasis is suggested in the lower lung zones. No pulmonary infiltrate or consolidation, pleural effusion or pulmonary vascular congestion or pneumo thorax is evident otherwise. No pleural effusion or pneumothorax. IMPRESSION: Right upper extremity PIC catheter tip overlies superior vena cava Reviewed, dictated and finalized at [facility] Reviewed, dictated and finalized at [facility] [employer]
[2024-06-18 18:58] VITALS: BP 158/78; PULSE 90; RESP 18; O2SAT 99
[2024-06-18 19:16] VITALS: TEMP 37.1
--- NOTE | 2024-06-18 19:16 | ED_ITS ---
HPI - General Adult General Chief complaint: Unspecified <Christie Diggs PA-C - Last Filed: 06/19/24 18:03> Stated complaint: PICC complication <Christie Diggs PA-C - Last Filed: 06/19/24 18:03> Time Seen by Provider: 06/18/24 19:16 <Christie Diggs PA-C - Last Filed: 06/19/24 18:03> Focused HPI: This is a 44 year old male that presents to the ER for PICC line issues. Reports he had his antibiotic infusion today and it was burning. He is currently on antibiotics for a foot wound. He was seen at [facility] for this issue and discharged to [facility] in [place] for management of antibiotics. He is currently receiving Ceftriaxone and Metronidazole. GENERAL: Well-appearing, obese, and in no acute distress. HEAD: Normocephalic, atraumatic. CHEST: No respiratory distress. HEART: Regular rate NEURO: ?Alert and oriented x3. Patient screened in triage and initial orders placed.? ?Additional care and d isposition to be based upon?diagnostic testing and treatment. <Christie Diggs PA-C - Last Filed: 06/19/24 18:03> History of Present Illness HPI narrative: I agree of the above HPI <Milo Carrion MD - Last Filed: 06/19/24 08:08> Related Data Home medications: Home Medications ?Medication ?Instructions ?Recorded ?Confirmed ?Last Taken ?Type atorvastatin 20 mg tablet 20 mg PO DAILY 06/29/23 02/25/24 Unknown History calcium carbonate (Oyster Shell 500 mg PO DAILY 06/29/23 02/25/24 Unknown History Calcium 500) dulaglutide 1.5 mg/0.5 mL 1.5 mg subcut WEEKLY 06/29/23 02/25/24 Unknown History subcutaneous pen injector (Trulicity) ergocalciferol (vitamin D2) 1,250 50,000 unit PO WEEKLY 06/29/23 02/25/24 Unknown History mcg (50,000 unit) capsule ferrous sulfate 325 mg (65 mg 325 mg PO DAILY 06/29/23 02/25/24 Unknown History iron) tablet insulin glargine 100 unit/mL (3 20 unit subcut HS 06/29/23 02/25/24 Unknown History mL) subcutaneous pen (Lantus Solostar U-100 Insulin) insulin lispro 100 unit/mL 10 unit subcut TIDWMEAL 06/29/23 02/25/24 Unknown History subcutaneous pen metformin 1,000 mg tablet 500 mg PO BID 06/29/23 02/25/24 Unknown History pantoprazole 40 mg tablet,delayed 40 mg PO DAILY 06/29/23 02/25/24 Unknown History release losartan 75 mg PO DAILY 07/21/23 02/25/24 Unknown History cephalexin 500 mg capsule 500 mg PO TID 02/25/24 02/25/24 Unknown History <Christie Diggs PA-C - Last Filed: 06/19/24 18:03> Allergies/adverse reactions: Allergies Allergy/AdvReac Type Severity Reaction Status Date / Time No Known Allergies Allergy Verified 02/03/24 13:09 <Christie Diggs PA-C - Last Filed: 06/19/24 18:03> Review of Systems Review of Systems: All systems reviewed & are unremarkable except as noted in HPI and below <Milo Carrion MD - Last Filed: 06/19/24 08:08> PMFSH Past Medical History Medical History: Medical History (Updated 06/19/24 @ 18:03 by Christie Diggs PA-C) History of diabetes mellitus History of hyperlipidemia <Christie Diggs PA-C - Last Filed: 06/19/24 18:03> Social History Social History: Social History Smoking status: Never smoker Second hand tobacco smoke exposure: Yes Living arrangements: with family Spiritual care concerns: No <Christie Diggs PA-C - Last Filed: 06/19/24 18:03> Exam Narrative: APPEARANCE: Well appearing, no pain, no distress, well-nourished. HEAD: normocephalic, atraumatic. EYES: PERRLA/EOMI, conjunctivae clear. NOSE: Normal no drainage EARS:TMS clear with good light reflex. THROAT: Pharynx clear, no exudate. NECK: Supple. No adenopathy, no masses. RESPIRATORY: Airway patent, respirations nonlabored. Clear to auscultation bilaterally, no rales, rhonchi, wheezing. CARDIOVASCULAR: Regular rate and rhythm without murmurs rubs or gallops. ABDOMINAL: Soft, nontender, nondistended, normal bowel sounds MUSCULOSKELETAL: Moves all extremities. Strength/ROM intact, No edema, No calf tenderness. NEURO: Alert. Cranial nerves II through XII intact. Good gait. Good coordination SKIN: No localized swelling tenderness or erythema at the PICC line site. <Milo Carrion MD - Last Filed: 06/19/24 08:08> Course Vital Signs Vital signs: Vital Signs Pulse Rate 90 06/18/24 18:58 Respiratory Rate 18 06/18/24 18:58 Blood Pressure 158/78 H 06/18/24 18:58 Pulse Oximetry 99 06/18/24 18:58 Oxygen Delivery Room Air 06/18/24 18:58 Temperature 98.7 F 06/18/24 19:16 Pulse Rate 87 06/19/24 02:38 Respiratory Rate 15 06/19/24 02:38 Blood Pressure 168/92 H 06/19/24 02:38 Pulse Oximetry 99 06/19/24 02:38 Oxygen Delivery Room Air 06/18/24 18:58 <Christie Diggs PA-C - Last Filed: 06/19/24 18:03> Vital Signs Pulse Rate 90 06/18/24 18:58 Respiratory Rate 18 06/18/24 18:58 Blood Pressure 158/78 H 06/18/24 18:58 Pulse Oximetry 99 06/18/24 18:58 Oxygen Delivery Room Air 06/18/24 18:58 Temperature 98.7 F 06/18/24 19:16 Pulse Rate 87 06/19/24 02:38 Respiratory Rate 15 06/19/24 02:38 Blood Pressure 168/92 H 06/19/24 02:38 Pulse Oximetry 99 06/19/24 02:38 Oxygen Delivery Room Air 06/18/24 18:58 <Milo Carrion MD - Last Filed: 06/19/24 08:08> Medical Decision Making MDM Narrative Medical decision making narrative: 44-year-old male presenting emergency department for evaluation for healing scrotal injury and for PICC line. Patient had no localized swelling or erythema at site PICC line. X-ray showed proper placement of the PICC line and PICC line was flushed and had no pain or discomfort. Patient scrotum had no acute abnormalities. Patient was updated results of his workup patient was comfortable the plan for discharge and close follow-up with his primary care physician. All questions concerns were addressed. <Milo Carrion MD - Last Filed: 06/19/24 08:08> Vital Signs Vital Signs: Vital Signs Pulse Rate 90 06/18/24 18:58 Respiratory Rate 18 06/18/24 18:58 Blood Pressure 158/78 H 06/18/24 18:58 Pulse Oximetry 99 06/18/24 18:58 Oxygen Delivery Room Air 06/18/24 18:58 Temperature 98.7 F 06/18/24 19:16 Pulse Rate 87 06/19/24 02:38 Respiratory Rate 15 06/19/24 02:38 Blood Pressure 168/92 H 06/19/24 02:38 Pulse Oximetry 99 06/19/24 02:38 Oxygen Delivery Room Air 06/18/24 18:58 <Christie Diggs PA-C - Last Filed: 06/19/24 18:03> Vital Signs Pulse Rate 90 06/18/24 18:58 Respiratory Rate 18 06/18/24 18:58 Blood Pressure 158/78 H 06/18/24 18:58 Pulse Oximetry 99 06/18/24 18:58 Oxygen Delivery Room Air 06/18/24 18:58 Temperature 98.7 F 06/18/24 19:16 Pulse Rate 87 06/19/24 02:38 Respiratory Rate 15 06/19/24 02:38 Blood Pressure 168/92 H 06/19/24 02:38 Pulse Oximetry 99 06/19/24 02:38 Oxygen Delivery Room Air 06/18/24 18:58 <Milo Carrion MD - Last Filed: 06/19/24 08:08> Imaging Data My impression: Chest x-ray: PICC line appears in the proper position <Milo Carrion MD - Last Filed: 06/19/24 08:08> Critical Care Time Critical Care Time Critical Care Time: No <SIMONE Aleman Last Filed: 06/19/24 18:03> Discharge Plan Discharge Clinical Impression: PIC line (peripherally inserted central catheter) flush, Visit for wound check <Christie Diggs PA-C - Last Filed: 06/19/24 18:03> Patient Disposition: NH Intermediate/Asst Living <Christie Diggs PA-C - Last Filed: 06/19/24 18:03> Condition: Stable <Christie Diggs PA-C - Last Filed: 06/19/24 18:03> Instructions: Antibiotic Form <Christie Diggs PA-C - Last Filed: 06/19/24 18:03> Additional Instructions: Your PICC line was located in the proper position and flushed without issues. Continue to have close follow-up with your physicians. If you have any worsening symptoms then please call or return to the emergency department <Christie Diggs PA-C - Last Filed: 06/19/24 18:03> Patient Language: Turkmen <Christie Diggs PA-C - Last Filed: 06/19/24 18:03> Prescriptions: No Action losartan 75 mg 75 mg PO DAILY cephalexin 500 mg capsule 500 mg PO TID atorvastatin 20 mg tablet 20 mg PO DAILY calcium carbonate [Oyster Shell Calcium 500] 500 mg calcium (1,250 mg) tablet 500 mg PO DAILY pantoprazole 40 mg tablet,delayed release (DR/EC) 40 mg PO DAILY ferrous sulfate 325 mg (65 mg iron) tablet 325 mg PO DAILY metformin 1,000 mg tablet 500 mg PO BID ergocalciferol (vitamin D2) 1,250 mcg (50,000 unit) capsule 50,000 unit PO WEEKLY Rx Instructions: TAKES ON MONDAYS insulin lispro 100 unit/mL insulin pen 10 unit SUBCUT TIDWMEAL insulin glargine [Lantus Solostar U-100 Insulin] 100 unit/mL (3 mL) insulin pen 20 unit SUBCUT HS Trulicity 1.5 mg/0.5 mL pen injector 1.5 mg SUBCUT WEEKLY Rx Instructions: TAKES ON MONDAYS <Christie Diggs PA-C - Last Filed: 06/19/24 18:03> Follow-up/Referrals: Shahram Olmstead MD [Primary Care Provider] - <Christie Diggs PA-C - Last Filed: 06/19/24 18:03>
[2024-06-18 22:40] VITALS: BP 146/71; PULSE 84; RESP 18; O2SAT 100
[2024-06-19 01:34] VITALS: BP 176/90; PULSE 91; RESP 16; O2SAT 97
[2024-06-19 02:38] VITALS: BP 168/92; PULSE 87; RESP 15; O2SAT 99
== END 2024-06-19 02:39 ==
PROVIDERS: Emergency Provider Emergency Medicine; PCP Internal Medicine Hematology & Oncology
DX: T82.898A Other specified complication of vascular prosthetic devices, implants and grafts, initial encounter (principal); E11.9 Type 2 diabetes mellitus without complications; E78.5 Hyperlipidemia, unspecified; Z79.4 Long term (current) use of insulin
CPT/HCPCS: 99283

== ENCOUNTER 2024-06-27 13:51 | Emergency (ER) | payer OTHER, SELFPAY ==
--- NOTE | ~2024-06-27 | XR_ITS ---
EXAMINATION: XR chest 1V portable DATE: 06/27/2024 14:12 INDICATION: Central line placement. TECHNIQUE: A single frontal view of the chest was obtained. COMPARISON: Chest single view 06/19/2024 FINDINGS: There are airspace opacities in left lower lobe. No pleural effusion or pneumothorax. The h eart size is normal. A right upper extremity peripherally inserted central venous catheter (PICC) is seen with tip in the right axillary vein. IMPRESSION: 1. PICC tip in the right axillary vein. 2. Airspace opacities in left lower lobe, consistent with atelectasis versus pneumonia. Reviewed, dictated and finalized at [facility] [employer] IMPRESSION: 1. PICC tip in the right axillary vein. 2. Airspace opacities in left lower lobe, consistent with atelectasis versus pn eumonia.
[2024-06-27 14:01] VITALS: BP 152/70; PULSE 87; RESP 16; TEMP 36.4; O2SAT 99
[2024-06-27] MEDS: LIDOCAINE 1% PF INJ 5 ML VIAL INFILTRATE (15:40)
--- NOTE | 2024-06-27 16:00 | ED_ITS ---
HPI - General Adult General Chief complaint: Unspecified Stated complaint: picc line Time Seen by Provider: 06/27/24 14:26 History of Present Illness HPI narrative: Patient is a 44-year-old gentleman who presents emergency department with chief complaint of PICC line displacement. Patient is receiving IV antibiotics at his nursing facility for a ulceration in his foot that he is wearing a wound VAC for. Patient this morning displaced the line Related Data Home Medications ?Medication ?Instructions ?Recorded ?Confirmed ?Last Taken ?Type atorvastatin 20 mg tablet 20 mg PO DAILY 06/29/23 02/25/24 Unknown History calcium carbonate (Oyster Shell 500 mg PO DAILY 06/29/23 02/25/24 Unknown History Calcium 500) dulaglutide 1.5 mg/0.5 mL 1.5 mg subcut WEEKLY 06/29/23 02/25/24 Unknown History subcutaneous pen injector (Trulicity) ergocalciferol (vitamin D2) 1,250 50,000 unit PO WEEKLY 06/29/23 02/25/24 Unknown History mcg (50,000 unit) capsule ferrous sulfate 325 mg (65 mg 325 mg PO DAILY 06/29/23 02/25/24 Unknown History iron) tablet insulin glargine 100 unit/mL (3 20 unit subcut HS 06/29/23 02/25/24 Unknown History mL) subcutaneous pen (Lantus Solostar U-100 Insulin) insulin lispro 100 unit/mL 10 unit subcut TIDWMEAL 06/29/23 02/25/24 Unknown History subcutaneous pen metformin 1,000 mg tablet 500 mg PO BID 06/29/23 02/25/24 Unknown History pantoprazole 40 mg tablet,delayed 40 mg PO DAILY 06/29/23 02/25/24 Unknown History release losartan 75 mg PO DAILY 07/21/23 02/25/24 Unknown History cephalexin 500 mg capsule 500 mg PO TID 02/25/24 02/25/24 Unknown History Allergies Allergy/AdvReac Type Severity Reaction Status Date / Time No Known Allergies Allergy Verified 02/03/24 13:09 Review of Systems Review of Systems: A 10 system review of systems was completed on the patient and is negative except for what is stated in the HPI. Nursing and ancillary documentation was reviewed. [facility] Past Medical History Medical History History of diabetes mellitus History of hyperlipidemia Social History Social History Smoking status: Never smoker Second hand tobacco smoke exposure: Yes Living arrangements: with family Spiritual care concerns: No Exam Narrative: GENERAL: Well-appearing, well-nourished, and in no acute distress. HEAD: Normocephalic, atraumatic. EYES: PERRLA and EOMI. ENT: Nares clear, no rhinorrhea or epistaxis. Mucous membranes moist. NECK: Supple. CHEST: Clear to auscultation. No respiratory distress. HEART: Regular rate and rhythm. No murmur heard. Normal peripheral pulses. ABDOMEN: Soft, nontender, nondistended, normal active bowel sounds. EXTREMITIES: Normal range of motion. No edema. There is a wound VAC present there is a PICC line present in the right upper extremity that is pulled out somewhat SKIN: Warm, dry, no rash. NEURO: No focal deficits. Alert and oriented x3. PSYCH: Normal mood and affect. Course Vital Signs Vital signs: Vital Signs Temperature 36.4 C 06/27/24 14:01 Pulse Rate 87 06/27/24 14:01 Respiratory Rate 16 06/27/24 14:01 Blood Pressure 152/70 H 06/27/24 14:01 Pulse Oximetry 99 06/27/24 14:01 Temperature 36.4 C 06/27/24 14:01 Pulse Rate 87 06/27/24 14:01 Respiratory Rate 16 06/27/24 14:01 Blood Pressure 152/70 H 06/27/24 14:01 Pulse Oximetry 99 06/27/24 14:01 Medical Decision Making [facility] Narrative Medical decision making narrative: The patient is otherwise asymptomatic besides the PICC line displacement. The vascular access nurse was contacted who given the patient is only receiving Rocephin and has a shortened. Of course will place a midline Vital Signs Vital Signs: Vital Signs Temperature 36.4 C 06/27/24 14:01 Pulse Rate 87 06/27/24 14:01 Respiratory Rate 16 06/27/24 14:01 Blood Pressure 152/70 H 06/27/24 14:01 Pulse Oximetry 99 06/27/24 14:01 Temperature 36.4 C 06/27/24 14:01 Pulse Rate 87 06/27/24 14:01 Respiratory Rate 16 06/27/24 14:01 Blood Pressure 152/70 H 06/27/24 14:01 Pulse Oximetry 99 06/27/24 14:01 Discharge Plan Discharge Clinical Impression: Mechanical complication of central vascular catheter Patient Disposition: Home, Self-Care Condition: Stable Instructions: Antibiotic Form, How to Care for Your Midline Catheter (ED), Midline Catheter (DC) Patient Language: Montserratian Prescriptions: No Action losartan 75 mg 75 mg PO DAILY cephalexin 500 mg capsule 500 mg PO TID atorvastatin 20 mg tablet 20 mg PO DAILY calcium carbonate [Oyster Shell Calcium 500] 500 mg calcium (1,250 mg) tablet 500 mg PO DAILY pantoprazole 40 mg tablet,delayed release (DR/EC) 40 mg PO DAILY ferrous sulfate 325 mg (65 mg iron) tablet 325 mg PO DAILY metformin 1,000 mg tablet 500 mg PO BID ergocalciferol (vitamin D2) 1,250 mcg (50,000 unit) capsule 50,000 unit PO WEEKLY Rx Instructions: TAKES ON MONDAYS insulin lispro 100 unit/mL insulin pen 10 unit SUBCUT TIDWMEAL insulin glargine [Lantus Solostar U-100 Insulin] 100 unit/mL (3 mL) insulin pen 20 unit SUBCUT HS Trulicity 1.5 mg/0.5 mL pen injector 1.5 mg SUBCUT WEEKLY Rx Instructions: TAKES ON MONDAYS Follow-up/Referrals: Shahram Olmstead MD [Primary Care Provider] - Time of Disposition: 16:45
== END 2024-06-27 17:51 ==
PROVIDERS: Emergency Provider Emergency Medicine; PCP Internal Medicine Hematology & Oncology
DX: T82.524A Displacement of infusion catheter, initial encounter (principal); E11.622 Type 2 diabetes mellitus with other skin ulcer; L97.509 Non-pressure chronic ulcer of other part of unspecified foot with unspecified severity; E78.5 Hyperlipidemia, unspecified; Z79.84 Long term (current) use of oral hypoglycemic drugs; Z79.4 Long term (current) use of insulin; Z79.85 Long-term (current) use of injectable non-insulin antidiabetic drugs; Z79.899 Other long term (current) drug therapy; Y84.8 Other medical procedures as the cause of abnormal reaction of the patient, or of later complication, without mention of misadventure at the time of the procedure
CPT/HCPCS: 71045; 96360; 99283; C1751; J2003